=== PATIENT | male | born 1970 | race Hispanic/Latino ===

== ENCOUNTER 2017-09-23 15:58 | Emergency (ER) | payer SELFPAY ==
--- NOTE | 2017-09-23 16:36 | ER ---
Nurse's Notes [facility] Name: Walt Velazquez Age: 46 yrs Sex: Male : 1970 Arrival Date: 09/23/2017 Time: 15:57 Bed 6 Private MD: Diagnosis: Epigastric pain Presentation: 09/23 15:58 Presenting complaint: Patient states: at 1400 ate something then had chest pain after ch walking to the psychiatric. feels like something kicked him in the chest. Transition of care: patient was not received from another setting of care. Onset of symptoms was September 23, 2017 at 14:30. Care prior to arrival: Medication(s) given: ASA, 81 mg, x 4. 15:58 Method Of Arrival: EMS: [facility] 15:58 Acuity: LATASHA 3 ch Triage Assessment: 16:01 General: Appears in no apparent distress. comfortable, Behavior is calm, cooperative, ch appropriate for age. Pain: Complains of pain in chest Pain currently is 7 out of 10 on a pain scale. EENT: No signs and/or symptoms were reported regarding the EENT system. Cardiovascular: Reports chest pain, Heart tones S1 S2 present Capillary refill < 3 seconds in bilateral fingers toes Clubbing of nail beds is absent JVD is absent Pulses are all present. Edema is absent. Respiratory: Airway is patent Respiratory effort is even, unlabored, Breath sounds are clear bilaterally. GI: No signs and/or symptoms were reported involving the gastrointestinal system. Derm: Skin is normal. Historical: - Allergies: 16:01 Trazodone; ch - Home Meds: 16:01 Dilantin Oral 100 mg three times a day [Active]; Risperdal Oral once daily [Active]; ch - PMHx: 16:01 Alcoholism; Bipolar disorder; pancreatic cancer; Parkinsons; Seizures; ch - Immunization history:: Adult Immunizations up to date. - Social history:: Smoking status: Patient uses tobacco products, Patient/guardian denies using alcohol, street drugs. Screenin:07 Abuse screen:. hj 16:11 Nutritional screening: No deficits noted. Tuberculosis screening: No symptoms or risk hj factors identified. Fall Risk None identified. Assessment: 16:12 Pain: Pain does not radiate. Pain began suddenly. 16:12 General: Appears in no apparent distress. uncomfortable, Behavior is calm, cooperative, hj appropriate for age. Neuro: Level of Consciousness is awake, alert, obeys commands, Oriented to person, place, time, situation, Appropriate for age. Cardiovascular: Capillary refill < 3 seconds Patient's skin is warm and dry. Respiratory: Airway is patent Respiratory effort is even, unlabored, Respiratory pattern is regular, symmetrical. GI: Abdomen is non-distended, Bowel sounds present X 4 quads. : No signs and/or symptoms were reported regarding the genitourinary system. EENT: No signs and/or symptoms were reported regarding the EENT system. Derm: No signs and/or symptoms reported regarding the dermatologic system. Musculoskeletal: No signs and/or symptoms reported regarding the musculoskeletal system. Vital Signs: 16:06 BP 134 / 91; Pulse 87; Resp 18; Temp 98.2(O); Pulse Ox 100% on R/A; Weight 72.57 kg; hj Height 5 ft. 3 in. (160.02 cm); Pain 6/10; 16:06 Body Mass Index 28.34 (72.57 kg, 160.02 cm) ED Course: 15:57 Patient arrived in ED. ch 15:59 Triage completed. ch 16:03 Deandre Sharma PA is PHCP. cp 16:03 Deandre Mckeon MD is Attending Physician. cp 16:05 Initial lab(s) drawn, by oh, sent to lab. Inserted saline lock: 22 gauge in right iw antecubital area, using aseptic technique. Blood collected. 16:06 Jose Burch RN is Primary Nurse. hj 16:07 Primary Nurse role handed off by Jose Burch RN ch 16:07 Fidelia Mccartney, RN is Primary Nurse. ch 16:10 EKG done, by apartment maintenance technician. reviewed by Deandre Mckeon MD. at1 16:11 Jose Burch, RN is Primary Nurse. hj 16:11 Arm band placed on right wrist. hj 16:11 Patient has correct armband on for positive identification. Placed in gown. Bed in low hj position. Call light in reach. Side rails up X 1. needle loom weaver on. Pulse ox on. NIBP on. 16:12 Patient maintains SpO2 saturation greater than 95% on room air. hj 16:35 No provider procedures requiring assistance completed. IV discontinued, intact, hj bleeding controlled, No redness/swelling at site. Pressure dressing applied. Administered Medications: 16:34 Not Given (pt left AMA): Banana Bag - (NS 0.9% 1000 ml, foLIC Acid 1 mg, Thiamine 100 hj mg, Multivitamin 1 amp) IV at 200 ml/hr once Outcome: 16:35 AMA AMA form signed hj 16:35 Condition: stable 16:36 Patient left the ED. 16:46 Patient left the ED. Signatures: Fidelia Mccartney, RN RN Marita Hernandez RN RN Altagracia condon, strategic marketing manager EKG Tat1 Jose Burch RN RN Deandre Sharma, PA PA cp
[2017-09-23 16:46] VITALS: BP 134/91; TEMP 98.2; O2SAT 100
[2017-09-23 16:46] LABS: Bicarbonate 28 mEq/L (21-31); Glucose Level 131 mg/dL (65-120); Lipase 150 U/L (22-51); Potassium 3.5 mEq/L (3.6-5.0); Sodium Level 136 mEq/L (135-145)
--- NOTE | 2017-09-23 16:47 | EDPHYS ---
Physician Documentation [facility] Name: Walt Velazquez Age: 46 yrs Sex: Male : 1970 Arrival Date: 09/23/2017 Time: 15:57 Bed 6 Private MD: ED Physician Deandre Mckeon HPI: 09/23 16:20 This 46 yrs old Male presents to ER via EMS with complaints of Chest Pain. cp 16:20 The patient or guardian reports chest pain that is located primarily in the epigastric cp area. 16:20 Onset: today, at 14:00, started shortly after eating and walking to religious. cp 16:20 The pain does not radiate. Associated signs and symptoms: Pertinent negatives: cough, cp diaphoresis, dizziness, headache, lower extremity pain, lower extremity swelling, near syncope, palpitations, syncope, vomiting. The chest pain is described as sharp. Duration: The patient or guardian reports a single episode, that is now resolved. Modifying factors: the symptoms are aggravated by palpation of area. Historical: - Allergies: 16:01 Trazodone; ch - Home Meds: 16:01 Dilantin Oral 100 mg three times a day [Active]; Risperdal Oral once daily [Active]; ch - PMHx: 16:01 Alcoholism; Bipolar disorder; pancreatic cancer; Parkinsons; Seizures; ch - Immunization history:: Adult Immunizations up to date. - Social history:: Smoking status: Patient uses tobacco products, Patient/guardian denies using alcohol, street drugs. ROS: 16:28 Constitutional: Negative for body aches, chills, fever, poor PO intake. cp 16:28 Eyes: Negative for injury, pain, redness, and discharge, ENT: Negative for injury, cp pain, and discharge. 16:28 Cardiovascular: Positive for chest pain, Negative for edema, palpitations. 16:28 Respiratory: Negative for cough, shortness of breath, wheezing. 16:28 Abdomen/GI: Positive for abdominal pain, of the epigastric area, Negative for vomiting, diarrhea, constipation, anorexia, dysphagia, black/tarry stool, rectal bleeding. 16:28 Back: Negative for pain at rest, pain with movement, radiated pain. 16:28 Skin: Negative for cellulitis, rash. 16:28 Neuro: Negative for dizziness, headache, weakness. 16:28 All other systems are negative. Exam: 16:33 Constitutional: The patient appears in no acute distress, alert, awake, non-toxic, well cp developed, well nourished, unkempt. 16:33 Head/Face: Normocephalic, atraumatic. Eyes: Pupils equal round and reactive to light, cp extra-ocular motions intact. Lids and lashes normal. Conjunctiva and sclera are non-icteric and not injected. Cornea within normal limits. Periorbital areas with no swelling, redness, or edema. ENT: Nares patent. No nasal discharge, no septal abnormalities noted. Tympanic membranes are normal and external auditory canals are clear. Oropharynx with no redness, swelling, or masses, exudates, or evidence of obstruction, uvula midline. Mucous membranes moist. Neck: Trachea midline, no thyromegaly or masses palpated, and no cervical lymphadenopathy. Supple, full range of motion without nuchal rigidity, or vertebral point tenderness. No Meningismus. 16:33 Chest/axilla: Inspection: normal, Palpation: crepitus, is not appreciated, tenderness, that is mild, of the xyphoid area. 16:33 Cardiovascular: Rate: normal, Rhythm: regular, Edema: is not appreciated, JVD: is not appreciated. 16:33 Respiratory: the patient does not display signs of respiratory distress, Respirations: normal, no use of accessory muscles, no retractions, no splinting, no tachypnea, labored breathing, is not present, Breath sounds: are clear throughout, no decreased breath sounds, no stridor, no wheezing. 16:33 Abdomen/GI: Inspection: abdomen appears normal, Bowel sounds: active, all quadrants, Palpation: soft, in all quadrants, mild abdominal tenderness, in the epigastric area, rebound tenderness, is not appreciated, voluntary guarding, is not appreciated, involuntary guarding, is not appreciated. 16:33 Back: pain, is absent, ROM is normal. 16:33 Skin: cellulitis, is not appreciated, no rash present. 16:33 Neuro: Orientation: to person, place \T\ time. Mentation: lucid, able to follow commands, Motor: moves all fours, strength is normal, Sensation: no obvious gross deficits, Gait: is steady. Vital Signs: 16:06 BP 134 / 91; Pulse 87; Resp 18; Temp 98.2(O); Pulse Ox 100% on R/A; Weight 72.57 kg; hj Height 5 ft. 3 in. (160.02 cm); Pain 6/10; 16:06 Body Mass Index 28.34 (72.57 kg, 160.02 cm) MDM: 16:03 Patient medically screened. cp 16:35 Data reviewed: vital signs, nurses notes. cp 16:35 Refusal of service: The patient/guardian displays adequate decision making capability cp and despite a detailed discussion of alternatives, benefits, risks, and consequences refuses: all lab tests. 09/23 16:15 Order name: Amylase, Serum cp 09/23 16:15 Order name: Basic Metabolic Panel cp 09/23 16:15 Order name: CBC with Diff cp 09/23 16:15 Order name: Creatinine for Radiology cp 09/23 16:15 Order name: Hepatic Function cp 09/23 16:15 Order name: Lipase cp 09/23 16:15 Order name: IV Saline Lock; Complete Time: 16:17 cp 09/23 16:15 Order name: Labs collected and sent; Complete Time: 16:17 cp 09/23 16:15 Order name: EKG; Complete Time: 16:16 cp 09/23 16:15 Order name: Magnesium 09/23 16:15 Order name: Troponin I 09/23 16:15 Order name: EKG - Nurse/Tech; Complete Time: 16:17 cp Administered Medications: 16:34 Not Given (pt left AMA): Banana Bag - (NS 0.9% 1000 ml, foLIC Acid 1 mg, Thiamine 100 hj mg, Multivitamin 1 amp) IV at 200 ml/hr once Disposition: 09/24 16:14 Co-signature as Attending Physician, Deandre Mckeon MD I agree with the assessment and bridgette plan of care. Disposition: 09/23/17 16:36 Patient has left against medical advice. Impression: Epigastric pain. - Patients states they are going to Home. - Condition is Stable. Follow up: Private Physician; When: 1 - 2 days; Reason: Recheck today's complaints. - Problem is new. - Symptoms have improved. Signatures: Dispatcher [employer] Fidelia Lea RN RN ch Anderson, Corey, MD MD cha Williams, Irene, RN RN Jose Burch RN RN hj Page Deandre, PA PA cp Corrections: (The following items were deleted from the chart) 09/23 16:34 16:15 Urine Dipstick-Ancillary ordered. daphne muniz
[2017-09-23 16:50] LABS: Absolute Lymphocytes (CBC) 1.4 K/uL (0.7-4.9); Absolute Monocytes 0.4 K/uL (0.1-1.3); Absolute Neutrophil 1.2 K/uL (1.8-8.0); Basophils % 1.7 % (0-1.3); Eosinophils % 0.1 % (0-4.4); Hematocrit 36.7 % (39.6-49.0); Lymphocytes % 45.7 % (15.3-44.8); MCH 28.7 pg (27.0-35.0); MCV 89.1 fL (80-100); MPV 7.6 fL (7.6-11.3); Monocytes % 12.7 % (3.3-12.3); RBC Red Blood Cell Count 4.12 M/uL (4.33-5.43)
[2017-09-23 16:59] LABS: ALT/SGPT 46 IU/L (10-60); AST/SGOT 139 IU/L (10-42); Albumin 4.5 g/dL (3.2-5.5); Alkaline Phosphatase 134 IU/L (42-121); BUN Blood Urea Nitrogen 8 mg/dL (6-20); Bilirubin Direct 0.1 mg/dL (0-0.2); Bilirubin Total 0.8 mg/dL (0.3-1.2)
[2017-09-23 17:07] LABS: Amylase Level 200 U/L (28-100)
--- NOTE | 2017-09-24 10:10 | EKG ---
Test Date: 2017-09-23 Test Time: 15:59:35 Assistant Restaurant General Manager: RODRIGO MEASUREMENT RESULTS: Intervals: Rate: 84 SD: 190 QRSD: 80 QT: 346 QTc: 408 [place]: P: 34 SD: 190 QRS: 13 T: 17 INTERPRETIVE STATEMENTS: Normal sinus rhythm Normal ECG Compared to ECG 08/06/2017 09:53:51 No significant changes Electronically Signed On 09-24-17 10:07:55 CDT by Asim Thompson
== END 2017-09-23 16:46 | disposition left against medical advice (07) ==
LOC: ER 15:58
DX: R10.13 Epigastric pain (principal); G20 Parkinson's disease; G40.909 Epilepsy, unspecified, not intractable, without status epilepticus; Z85.07 Personal history of malignant neoplasm of pancreas; Z88.6 Allergy status to analgesic agent
CPT/HCPCS: 36415; 80048; 80076; 82150; 83690; 83735; 84484; 85025; 93005; 99285

== ENCOUNTER 2017-10-10 19:14 | Emergency (ER) | payer SELFPAY ==
[2017-10-10 20:01] LABS: Absolute Monocytes 0.3 K/uL (0.1-1.3)
[2017-10-10 20:05] LABS: Absolute Neutrophil 1.1 K/uL (1.8-8.0); MPV 7.2 fL (7.6-11.3)
[2017-10-10 20:08] LABS: Protime INR 0.99
[2017-10-10 20:12] LABS: Basophils % 4.4 % (0-1.3); Eosinophils % 0.7 % (0-4.4); Hematocrit 36.8 % (39.6-49.0); Lymphocytes % 38.1 % (15.3-44.8); MCH 29.2 pg (27.0-35.0); Monocytes % 12.4 % (3.3-12.3); RBC Red Blood Cell Count 4.18 M/uL (4.33-5.43)
[2017-10-10 20:13] LABS: Bicarbonate 27 mEq/L (21-31); Glucose Level 125 mg/dL (65-120); Potassium 3.7 mEq/L (3.6-5.0); Sodium Level 136 mEq/L (135-145)
[2017-10-10 20:18] LABS: ALT/SGPT 65 IU/L (10-60); AST/SGOT 169 IU/L (10-42); Albumin 4.3 g/dL (3.2-5.5); Alkaline Phosphatase 168 IU/L (42-121); BUN Blood Urea Nitrogen 7 mg/dL (6-20); Bilirubin Direct 0.2 mg/dL (0-0.2); Bilirubin Total 0.8 mg/dL (0.3-1.2); Magnesium 1.7 mg/dL (1.8-2.5); Protein, Total 8.5 g/dL (6.0-8.3)
[2017-10-10 20:22] LABS: Alcohol Serum/Plasma 427 mg/dl; Phenytoin (Dilantin) Level < 2.5 ug/ml (10.0-20.0); Salicylates Level < 4.0 mg/dl (<30)
[2017-10-10] MEDS ORDERED: LORazepam 2 MG/ML VIAL ONE (20:27)
--- NOTE | 2017-10-10 20:43 | RAD REPORT ---
EXAM DESCRIPTION: RAD - Knee Left 3 View - 10/10/2017 8:07 pm CLINICAL HISTORY: Left knee pain status post injury FINDINGS: No fracture or dislocation is seen.
[2017-10-10 20:50] LABS: Urine Blood TRACE (NEG); Urine Glucose NEGATIVE (NEG); Urine Protein 1+ (NEG); Urine pH 5.5 (5.0-7.0)
[2017-10-10 20:57] LABS: Anisocytosis 1+; Blood Morphology Comment NOTED (NOT SEEN); Hypochromasia 1+; Platelet Estimate DECR; Urine White Blood Cell Casts OK
[2017-10-10] MEDS ORDERED: PHENYTOIN ER 100 MG CAP PO ONE (20:59)
[2017-10-10] MEDS ORDERED: MAGNESIUM OXIDE 400 MG TAB ONE (21:00)
--- NOTE | 2017-10-10 21:01 | EDPHYS ---
Physician Documentation [facility] Name: Walt Velazquez Age: 46 yrs Sex: Male : 1970 Arrival Date: 10/10/2017 Time: 19:17 Bed 17 Private MD: ED Physician Finesse Grajeda HPI: 10/10 19:40 This 46 yrs old Male presents to ER via EMS with complaints of left knee pain. kav 19:40 The patient presents with a contusion, pain, that is acute, weakness, secondary to kav pain. The complaints affect the left knee. Context: The problem was sustained at home, resulted from the patient falling, patient reports that he "...had a seizure and fell on left knee on 10/09/17". Onset: The symptoms/episode began/occurred acutely. Modifying factors: The symptoms are alleviated by nothing. the symptoms are aggravated by movement. Associated signs and symptoms: Pertinent positives: weakness, of the left knee, Pertinent negatives calf tenderness, fever, nausea, numbness, rash, swelling, tingling, vomiting, warmth. Treatment prior to arrival includes: no previous treatment. Severity of symptoms: At their worst the symptoms were mild, just prior to arrival. The patient has not recently seen a physician. patient reports that he has been out of dilantin medication for > 30 days. ETOH noted on breath during assessment. 21:06 patient seen at clinic in [facility] for psyche issues and for psyche medications for kav bipolar disorder. Historical: - Allergies: 19:23 Trazodone; bs1 - Home Meds: 19:23 Dilantin Oral 100 mg three times a day [Active]; Risperdal Oral once daily [Active]; bs1 Ritalin Oral [Active]; - PMHx: 19:23 Alcoholism; Bipolar disorder; pancreatic cancer; Parkinsons; Seizures; bs1 - PSHx: 19:23 Unable to obtain; bs1 - Immunization history:: Adult Immunizations unknown. - Social history:: Smoking status: Patient/guardian denies using tobacco, Patient uses alcohol, on a daily basis. - Family history:: not pertinent. - Hospitalizations: : No recent hospitalization is reported. ROS: 20:55 Constitutional: Negative for fever, chills, and weight loss, Eyes: Negative for injury, kav pain, redness, and discharge, ENT: Negative for injury, pain, and discharge, Neck: Negative for injury, pain, and swelling, Cardiovascular: Negative for chest pain, palpitations, and edema, Respiratory: Negative for shortness of breath, cough, wheezing, and pleuritic chest pain, Abdomen/GI: Negative for abdominal pain, nausea, vomiting, diarrhea, and constipation, Back: Negative for injury and pain, : Negative for injury, bleeding, discharge, and swelling, Skin: Negative for injury, rash, and discoloration, Neuro: Negative for headache, weakness, numbness, tingling, and seizure, Psych: Negative for depression, anxiety, suicide ideation, homicidal ideation, and hallucinations, Allergy/Immunology: Negative for hives, rash, and allergies, Endocrine: Negative for neck swelling, polydipsia, polyuria, polyphagia, and marked weight changes, Hematologic/Lymphatic: Negative for swollen nodes, abnormal bleeding, and unusual bruising. 20:55 MS/extremity: Positive for pain, of the right knee. Exam: 20:55 Constitutional: This is a well developed, well nourished patient who is awake, alert, kav and in no acute distress. Head/Face: Normocephalic, atraumatic. Eyes: Pupils equal round and reactive to light, extra-ocular motions intact. Lids and lashes normal. Conjunctiva and sclera are non-icteric and not injected. Cornea within normal limits. Periorbital areas with no swelling, redness, or edema. ENT: Nares patent. No nasal discharge, no septal abnormalities noted. Tympanic membranes are normal and external auditory canals are clear. Oropharynx with no redness, swelling, or masses, exudates, or evidence of obstruction, uvula midline. Mucous membranes moist. Neck: Trachea midline, no thyromegaly or masses palpated, and no cervical lymphadenopathy. Supple, full range of motion without nuchal rigidity, or vertebral point tenderness. No Meningismus. Chest/axilla: Normal chest wall appearance and motion. Nontender with no deformity. No lesions are appreciated. Cardiovascular: Regular rate and rhythm with a normal S1 and S2. No gallops, murmurs, or rubs. Normal PMI, no JVD. No pulse deficits. Respiratory: Lungs have equal breath sounds bilaterally, clear to auscultation and percussion. No rales, rhonchi or wheezes noted. No increased work of breathing, no retractions or nasal flaring. Abdomen/GI: Soft, non-tender, with normal bowel sounds. No distension or tympany. No guarding or rebound. No evidence of tenderness throughout. Back: No spinal tenderness. No costovertebral tenderness. Full range of motion. Skin: Warm, dry with normal turgor. Normal color with no rashes, no lesions, and no evidence of cellulitis. 20:55 Musculoskeletal/extremity: Extremities: noted in the right knee: ROM: limited active range of motion, in the left knee, Circulation is intact in all extremities. Pulses: are normal with no appreciated deficits, Sensation intact. Joints: All joints appear normal with full range of motion. Weight bearing: can bear weight with assistance only. Vital Signs: 19:24 BP 129 / 69; Pulse 83; Resp 18; Temp 98.0(O); Pulse Ox 100% on R/A; Weight 65.77 kg; bs1 Height 5 ft. 3 in. (160.02 cm); Pain 8/10; 20:30 BP 114 / 78; Pulse 75; Resp 18; Pulse Ox 100% on R/A; bs1 21:20 BP 112 / 79; Pulse 82; Resp 17; Temp 98.2(O); Pulse Ox 94% on R/A; Pain 0/10; bs1 19:24 Body Mass Index 25.69 (65.77 kg, 160.02 cm) bs1 MDM: 19:24 Patient medically screened. cp 20:55 Data reviewed: vital signs, nurses notes, EMS record, lab test result(s), EKG, kav radiologic studies. 10/10 19:39 Order name: Basic Metabolic Panel; Complete Time: 20:40 kav 10/10 19:39 Order name: BNP; Complete Time: 20:40 kav 10/10 19:39 Order name: CBC with Diff; Complete Time: 21:04 kav 10/10 19:39 Order name: LFT's; Complete Time: 20:40 kav 10/10 19:39 Order name: Magnesium; Complete Time: 20:40 kav 10/10 19:39 Order name: PT-INR; Complete Time: 20:40 kav 10/10 19:39 Order name: Ptt, Activated; Complete Time: 20:40 kav 10/10 19:39 Order name: Acetaminophen; Complete Time: 20:40 kav 10/10 19:39 Order name: ETOH Level; Complete Time: 20:40 kav 10/10 19:39 Order name: Salicylate; Complete Time: 20:40 kav 10/10 19:39 Order name: Urine Drug Screen kav 10/10 21:07 Interpretation: Within normal limits. kav 10/10 19:39 Order name: Dilantin; Complete Time: 20:40 kav 10/10 20:16 Order name: CBC Smear Scan; Complete Time: 21:04 EDMS 10/10 20:45 Order name: Urine Dipstick--Ancillary (enter results); Complete Time: 20:54 em1 10/10 19:39 Order name: Cardiac monitoring; Complete Time: 20:35 kav 10/10 19:39 Order name: EKG - Nurse/Tech; Complete Time: 20:48 kav 10/10 19:39 Order name: IV Saline Lock; Complete Time: 20:31 kav 10/10 19:39 Order name: Labs collected and sent; Complete Time: 20:31 kav 10/10 19:39 Order name: O2 Per Protocol; Complete Time: 20:31 kav 10/10 19:39 Order name: O2 Sat Monitoring; Complete Time: 20:31 kav 10/10 19:39 Order name: Urine Dipstick-Ancillary (obtain specimen); Complete Time: 20:31 kav 10/10 19:39 Order name: EKG; Complete Time: 19:39 kav 10/10 19:44 Order name: Knee Left 3 View XRAY; Complete Time: 20:54 kav Administered Medications: 19:59 Drug: NS 0.9% 1000 ml Route: IV; Rate: 1 bolus; Site: right antecubital; bs1 21:25 Follow up: IV Status: Completed infusion bs1 20:30 Drug: Ativan 1 mg Route: IVP; Site: right antecubital; bs1 20:43 Follow up: Response: No adverse reaction bs1 21:03 Drug: Magnesium 400 mg Route: PO; bs1 21:24 Follow up: Response: No adverse reaction bs1 21:03 Drug: Dilantin 300 mg Route: PO; bs1 21:24 Follow up: Response: No adverse reaction bs1 Disposition: 10/11 01:30 Co-signature as Attending Physician, Finesse Grajeda MD. ma2 Disposition: 10/10/17 21:00 Discharged to Home. Impression: Alcohol abuse with intoxication, Hypomagnesemia, Dehydration, Patient's other noncompliance with medication regimen. - Condition is Stable. - Discharge Instructions: Alcohol Use Disorder, Hypomagnesemia, Alcohol Intoxication, [id number], Alcohol Abuse and Nutrition, Dehydration, Adult, [id number], Knee Pain, [id number]. - Prescriptions for Dilantin Kapseal 100 mg Oral Capsule - take 1 capsule by ORAL route every 8 hours; 30 capsule. - Medication Reconciliation Form, Thank You Letter, Antibiotic Education, Prescription Opioid Use form. - Follow up: Private Physician; When: 1 - 2 days; Reason: Recheck today's complaints, Continuance of care, Re-evaluation by your physician. - Problem is new. - Symptoms have improved. - Notes: Dilantin level is subtherapeutic. Patient reports that he has been out of his Dilantin for \\T\\gt; 30 days and gets his refills here in this ER. Patient advised to f/u with the clinic in [place], [place]. Patient advised to take his medications as directed. Patient advised to abstain from alcohol use. Signatures: Dispatcher [employer] Jana Jansen, FOREIGN EXCHANGE STUDENT COORDINATOR FOREIGN EXCHANGE STUDENT COORDINATOR Deandre Michael PA PA cp Salazar, Brittany, RN RN bs1 Finesse Grajeda MD MD ma2
--- NOTE | 2017-10-10 21:01 | ER ---
Nurse's Notes [facility] Name: Walt Velazquez Age: 46 yrs Sex: Male : 1970 Arrival Date: 10/10/2017 Time: 19:17 Bed 17 Private MD: Diagnosis: Alcohol abuse with intoxication;Hypomagnesemia;Dehydration;Patient's other noncompliance with medication regimen Presentation: 10/10 19:18 Presenting complaint: EMS states: "Patient states he fell a day and a half ago after a bs1 seizure and hurt his left knee, Blood pressure 129/88, 100% room air, 92 pulse.". Transition of care: patient was not received from another setting of care. Onset of symptoms was October 09, 2017. Initial Sepsis Screen: Does the patient meet any 2 criteria? No. Patient's initial sepsis screen is negative. Does the patient have a suspected source of infection? No. Patient's initial sepsis screen is negative. Care prior to arrival: None. 19:18 Method Of Arrival: EMS: [facility] bs1 19:18 Acuity: LATASHA 3 bs1 Historical: - Allergies: 19:23 Trazodone; bs1 - Home Meds: 19:23 Dilantin Oral 100 mg three times a day [Active]; Risperdal Oral once daily [Active]; bs1 Ritalin Oral [Active]; - PMHx: 19:23 Alcoholism; Bipolar disorder; pancreatic cancer; Parkinsons; Seizures; bs1 - PSHx: 19:23 Unable to obtain; bs1 - Immunization history:: Adult Immunizations unknown. - Social history:: Smoking status: Patient/guardian denies using tobacco, Patient uses alcohol, on a daily basis. - Family history:: not pertinent. - Hospitalizations: : No recent hospitalization is reported. Screenin:25 Abuse screen: Denies threats or abuse. Denies injuries from another. Nutritional bs1 screening: No deficits noted. Tuberculosis screening: No symptoms or risk factors identified. Fall Risk None identified. Assessment: 19:36 General: Appears in no apparent distress. uncomfortable, Behavior is cooperative, bs1 anxious, Smells of alcohol. Pain: Complains of pain in left knee Pain currently is 8 out of 10 on a pain scale. Quality of pain is described as throbbing. Neuro: Level of Consciousness is awake, alert, obeys commands, Oriented to person, place, situation. Cardiovascular: Denies chest pain, palpitations, shortness of breath, Heart tones S1 S2 present Capillary refill < 3 seconds Patient's skin is warm and dry. Respiratory: Airway is patent Trachea midline Respiratory effort is even, unlabored, Respiratory pattern is regular, symmetrical, Breath sounds are clear bilaterally. GI: No deficits noted. No signs and/or symptoms were reported involving the gastrointestinal system. : No deficits noted. No signs and/or symptoms were reported regarding the genitourinary system. EENT: No deficits noted. No signs and/or symptoms were reported regarding the EENT system. Derm: Skin is intact, Bruising that is dark purple, on left side of knee. Musculoskeletal: Circulation, motion, and sensation intact. Capillary refill < 3 seconds, Range of motion: limited in left knee. 20:36 Reassessment: Patient appears in no apparent distress at this time. Patient and/or bs1 family updated on plan of care and expected duration. Pain level reassessed. Patient is alert, oriented x 3, equal unlabored respirations, skin warm/dry/pink. 21:26 Reassessment: Patient appears in no apparent distress at this time. Patient and/or bs1 family updated on plan of care and expected duration. Pain level reassessed. Patient is alert, oriented x 3, equal unlabored respirations, skin warm/dry/pink. Patient states symptoms have improved. Vital Signs: 19:24 BP 129 / 69; Pulse 83; Resp 18; Temp 98.0(O); Pulse Ox 100% on R/A; Weight 65.77 kg; bs1 Height 5 ft. 3 in. (160.02 cm); Pain 8/10; 20:30 BP 114 / 78; Pulse 75; Resp 18; Pulse Ox 100% on R/A; bs1 21:20 BP 112 / 79; Pulse 82; Resp 17; Temp 98.2(O); Pulse Ox 94% on R/A; Pain 0/10; bs1 19:24 Body Mass Index 25.69 (65.77 kg, 160.02 cm) bs1 ED Course: 19:17 Patient arrived in ED. em1 19:18 Gloria Theodore, ROBERTO is Primary Nurse. bs1 19:21 Triage completed. bs1 19:24 Deandre Sharma PA is PHCP. cp 19:24 Suliaman Hawkins MD is Attending Physician. cp 19:25 Patient has correct armband on for positive identification. Bed in low position. Call bs1 light in reach. Side rails up X 1. Pulse ox on. NIBP on. 19:26 Jana Lopez FNP is PHCP. kav 19:26 Finesse Grajeda MD is Attending Physician. kav 19:45 Inserted saline lock: 22 gauge in right antecubital area, using aseptic technique. bs1 20:01 Arm band placed on placed. bs1 20:01 No provider procedures requiring assistance completed. bs1 20:06 X-ray completed. Portable x-ray completed in exam room. Patient tolerated procedure kp1 well. 20:07 Knee Left 3 View XRAY In Process Unspecified. EDMS 20:48 EKG done, by ED staff, reviewed by Jana JOLLEY. cc 21:24 IV discontinued, bleeding controlled, No redness/swelling at site. Pressure dressing bs1 applied. Administered Medications: 19:59 Drug: NS 0.9% 1000 ml Route: IV; Rate: 1 bolus; Site: right antecubital; bs1 21:25 Follow up: IV Status: Completed infusion bs1 20:30 Drug: Ativan 1 mg Route: IVP; Site: right antecubital; bs1 20:43 Follow up: Response: No adverse reaction bs1 21:03 Drug: Magnesium 400 mg Route: PO; bs1 21:24 Follow up: Response: No adverse reaction bs1 21:03 Drug: Dilantin 300 mg Route: PO; bs1 21:24 Follow up: Response: No adverse reaction bs1 Outcome: 21:00 Discharge ordered by . kajaneth 21:21 Discharged to [facility] bs1 21:21 Condition: stable 21:21 Discharge instructions given to patient, Instructed on discharge instructions, follow up and referral plans. medication usage, Demonstrated understanding of instructions, follow-up care, medications, Prescriptions given X 1. 21:26 Patient left the ED. bs1 Signatures: Dispatcher [employer] EDMS Jana Lopez FNP STEREO MAP PLOTTER OPERATOR Manfred Carballo em1 Gemma Cardoso cc Deandre Sharma PA PA Sonia Purcell kp1 Theodore, Gloria, RN RN bs1 Corrections: (The following items were deleted from the chart) 21:25 21:20 BP 112 / 79; Pulse 82bpm; Resp 17bpm; Pulse Ox 94% RA; Pain 0/10; bs1 bs1
[2017-10-10 21:02] LABS: Barbiturates NEGATIVE; Benzodiazepines NEGATIVE; Cocaine NEGATIVE; METHAMPHETAM NEGATIVE; Opiates NEGATIVE
[2017-10-10 21:08] LABS: Phencyclidine ND; THC Cannibis ND
[2017-10-10 21:44] VITALS: BP 112/79; TEMP 98.2; O2SAT 94
--- NOTE | 2017-10-11 06:13 | EKG ---
Test Date: 2017-10-10 Test Time: 20:41:08 Tow Boat Captain: MEKHI MEASUREMENT RESULTS: Intervals: Rate: 77 AK: 206 QRSD: 82 QT: 380 QTc: 430 [place]: P: 60 AK: 206 QRS: 41 T: 25 INTERPRETIVE STATEMENTS: Normal sinus rhythm Normal ECG Compared to ECG 09/23/2017 15:59:35 No significant changes Electronically Signed On 10-11-17 06:12:02 CDT by Barron Kumar
== END 2017-10-10 21:26 | disposition home or self-care (01) ==
LOC: ER 19:14
DX: F10.129 Alcohol abuse with intoxication, unspecified (principal); E83.42 Hypomagnesemia; Z91.14 Patient's other noncompliance with medication regimen
CPT/HCPCS: 36415; 80048; 80076; 80185; 80307; 80320; 80329; 81003; 83735; 83880; 85025; 85610; 85730; 93005; 96361; 96374; 99284

== ENCOUNTER 2017-10-16 11:22 | Emergency (ER) | payer SELFPAY ==
[2017-10-16 12:46] LABS: Absolute Lymphocytes (CBC) 0.8 K/uL (0.7-4.9); Absolute Monocytes 0.4 K/uL (0.1-1.3); Absolute Neutrophil 1.9 K/uL (1.8-8.0); Basophils % 2.2 % (0-1.3); Hematocrit 35.9 % (39.6-49.0); Lymphocytes % 24.4 % (15.3-44.8); MCH 29.5 pg (27.0-35.0); MCV 88.8 fL (80-100); MPV 7.3 fL (7.6-11.3); Monocytes % 12.5 % (3.3-12.3); RBC Red Blood Cell Count 4.04 M/uL (4.33-5.43)
--- NOTE | 2017-10-16 12:46 | RAD REPORT ---
EXAM DESCRIPTION: Kinsey Single View10/16/2017 12:38 pm CLINICAL HISTORY: Chest pain COMPARISON: 2017 FINDINGS: The lungs appear clear of acute infiltrate. The heart is normal size IMPRESSION: No acute abnormalities displayed
[2017-10-16] MEDS ORDERED: NA CHLORIDE 0.9% 1,000 ML ONE (12:49)
[2017-10-16] MEDS ORDERED: ONDANSETRON 4 MG/2 ML VIAL ONE (12:49)
[2017-10-16] MEDS ORDERED: PANTOPRAZOLE 40 MG INJ ONE (12:49)
[2017-10-16 12:52] LABS: Bicarbonate 23 mEq/L (21-31); Glucose Level 151 mg/dL (65-120); Lipase 158 U/L (22-51); Potassium 3.5 mEq/L (3.6-5.0); Sodium Level 134 mEq/L (135-145)
[2017-10-16 12:58] LABS: ALT/SGPT 69 IU/L (10-60); AST/SGOT 227 IU/L (10-42); Albumin 4.3 g/dL (3.2-5.5); Alkaline Phosphatase 160 IU/L (42-121); BUN Blood Urea Nitrogen 8 mg/dL (6-20); Bilirubin Direct 0.2 mg/dL (0-0.2); Bilirubin Total 0.5 mg/dL (0.3-1.2); Creatine Phosphokinase 160 IU/L (22-269)
[2017-10-16 13:01] LABS: CKMB Creatine Kinase MB 1.6 ng/ml (0.3-4.0)
--- NOTE | 2017-10-16 14:23 | ER ---
Nurse's Notes [facility] Name: Walt Velazquez Age: 46 yrs Sex: Male : 1970 Arrival Date: 10/16/2017 Time: 11:27 Bed 12 Private MD: Diagnosis: Other chest pain Presentation: 10/16 11:29 Presenting complaint: EMS states: Chest pain that began this morning, substernal does sg not radiate, is an 8/10 on a pain scale, reports hx of parkinson and needs a triple bypass but they are not cutting on me. Transition of care: patient was not received from another setting of care. Onset of symptoms was October 16, 2017. Initial Sepsis Screen: Does the patient meet any 2 criteria? No. Patient's initial sepsis screen is negative. Does the patient have a suspected source of infection? No. Patient's initial sepsis screen is negative. Care prior to arrival: None. 11:29 Method Of Arrival: EMS: [facility] sg 11:29 Acuity: LATASHA 3 sg Historical: - Allergies: 11:33 Trazodone; sg - Home Meds: 11:33 Dilantin Oral 100 mg three times a day [Active]; Risperdal Oral once daily [Active]; sg Ritalin Oral [Active]; - PMHx: 11:33 Alcoholism; Bipolar disorder; pancreatic cancer; Parkinsons; Seizures; sg - PSHx: 11:33 Unable to obtain; sg Screenin:43 Abuse screen: Denies threats or abuse. Denies injuries from another. Nutritional sg screening: No deficits noted. Tuberculosis screening: No symptoms or risk factors identified. Never had TB. Fall Risk None identified. Assessment: 11:43 General: Appears in no apparent distress. comfortable, well groomed, well developed, sg well nourished, Behavior is calm, cooperative, appropriate for age. General: Smells of alcohol. Pain: Complains of pain in epigastric area Pain does not radiate. Pain currently is 10 out of 10 on a pain scale. Quality of pain is described as aching, pt reports I think its my pancreatic cancer acting up. Neuro: Level of Consciousness is awake, alert, obeys commands, Oriented to person, place, time, Transfer Man are equal bilaterally Moves all extremities. Speech is slurred, Facial symmetry appears normal. Cardiovascular: Heart tones S1 S2 present Capillary refill is brisk in bilateral fingers Patient's skin is warm and dry. Chest pain is denied. Respiratory: Airway is patent Respiratory effort is even, unlabored, Respiratory pattern is regular, symmetrical. GI: Abdomen is flat, non-distended, Bowel sounds present X 4 quads. Reports upper abdominal pain, epigastric pain. : No signs and/or symptoms were reported regarding the genitourinary system. EENT: No signs and/or symptoms were reported regarding the EENT system. Derm: Skin is intact, is healthy with good turgor, Skin is dry, Skin is normal, Skin temperature is warm. Musculoskeletal: No signs and/or symptoms reported regarding the musculoskeletal system. Vital Signs: 11:42 BP 116 / 78; Pulse 86 MON; Resp 17 S; Temp 97.7; Pulse Ox 95% on R/A; Pain 10/10; sg ED Course: 11:27 Patient arrived in ED. sg 11:28 Deandre Sharma PA is PHCP. cp 11:28 Rudy Chavez MD is Attending Physician. cp 11:29 Haroon Elizondo, ROBERTO is Primary Nurse. sg 11:31 Triage completed. sg 11:31 Arm band placed on. sg 11:47 No provider procedures requiring assistance completed. Patient maintains SpO2 sg saturation greater than 95% on room air. 12:01 EKG done, by technical project lead. reviewed by Rudy Chavez MD. tc 12:18 Initial lab(s) drawn, by nd, sent to lab. Inserted saline lock: 20 gauge in right iw antecubital area, using aseptic technique. Blood collected. 12:35 X-ray completed. Portable x-ray completed in exam room. Patient tolerated procedure ml well. 12:37 XRAY Chest (1 view) In Process Unspecified. EDMS 13:46 US Abdomen Limited In Process Unspecified. EDMS Administered Medications: 12:00 Drug: NS 0.9% 1000 ml Route: IV; Rate: 1 bolus; Site: left antecubital; sg 12:40 Drug: ProTONIX 40 mg Route: IVP; Site: left antecubital; sg 12:40 Drug: Zofran 4 mg Route: IVP; Site: left antecubital; sg Outcome: 14:24 Patient left the ED. jr8 Signatures: Dispatcher [employer] EDMS Elizondo, ROBERTO Patiño RN, Irene, RN RN iw Lopez, Rigo Moser PA PA jr8 Maria L Greer, journeyman plumber [facility] Deandre Sharma PA PA cp
--- NOTE | 2017-10-16 14:23 | EDPHYS ---
Physician Documentation [facility] Name: Walt Velazquez Age: 46 yrs Sex: Male : 1970 Arrival Date: 10/16/2017 Time: 11:27 Bed 12 Private MD: ED Physician Rudy Chavez HPI: 10/16 11:42 This 46 yrs old Male presents to ER via EMS with complaints of Chest Pain > 30 cp y/o. 11:42 The patient or guardian reports chest pain that is located primarily in the substernal cp area, epigastric area. Onset: this morning. Historical: - Allergies: 11:33 Trazodone; sg - Home Meds: 11:33 Dilantin Oral 100 mg three times a day [Active]; Risperdal Oral once daily [Active]; sg Ritalin Oral [Active]; - PMHx: 11:33 Alcoholism; Bipolar disorder; pancreatic cancer; Parkinsons; Seizures; sg - PSHx: 11:33 Unable to obtain; sg ROS: 11:50 Constitutional: Negative for body aches, chills, fever, poor PO intake. cp 11:50 Eyes: Negative for injury, pain, redness, and discharge. cp 11:50 Cardiovascular: Positive for chest pain, Negative for edema, palpitations. 11:50 Respiratory: Negative for cough, shortness of breath, wheezing. 11:50 Abdomen/GI: Positive for abdominal pain, of the epigastric area, Negative for vomiting, diarrhea, constipation, black/tarry stool, rectal bleeding. 11:50 Skin: Negative for cellulitis, rash. 11:50 Neuro: Negative for altered mental status, headache, loss of consciousness, syncope, near syncope, weakness. 11:50 Psych: Positive for alcohol dependence. 11:50 All other systems are negative. Exam: 11:55 Constitutional: The patient appears in no acute distress, alert, awake, cp non-diaphoretic, non-toxic, well developed, well nourished. 11:55 Head/Face: Normocephalic, atraumatic. cp 11:55 Eyes: Periorbital structures: appear normal, Pupils: equal, round, and reactive to light and accomodation, Conjunctiva: normal, no exudate, no injection, Sclera: no appreciated abnormality, Lids and lashes: appear normal, bilaterally. 11:55 ENT: External ear(s): are unremarkable, Ear canal(s): are normal, clear, TM's: dullness, bilaterally, Nose: is normal, Mouth: is normal, Posterior pharynx: is normal, airway is patent, no erythema, no exudate. 11:55 Neck: ROM/movement: is normal, is supple, without pain, no range of motions limitations, no meningismus, no nuchal rigidity. 11:55 Chest/axilla: Inspection: normal, Palpation: is normal, no crepitus, no tenderness. 11:55 Cardiovascular: Rate: normal, Rhythm: regular, Pulses: Pulses are 2+ in right radial artery and left radial artery. Edema: is not appreciated, JVD: is not appreciated. 11:55 Respiratory: the patient does not display signs of respiratory distress, Respirations: normal, no use of accessory muscles, no retractions, no splinting, no tachypnea, labored breathing, is not present, Breath sounds: are clear throughout, no decreased breath sounds, no stridor, no wheezing. 11:55 Abdomen/GI: Inspection: abdomen appears normal, Bowel sounds: active, all quadrants, Palpation: soft, in all quadrants, mild abdominal tenderness, in the epigastric area, rebound tenderness, is not appreciated, involuntary guarding, is not appreciated. 11:55 Skin: cellulitis, is not appreciated, no rash present. 11:55 Neuro: Orientation: to person, place \T\ time. Mentation: lucid, able to follow commands, Motor: moves all fours, strength is normal, Sensation: no obvious gross deficits. Vital Signs: 11:42 BP 116 / 78; Pulse 86 MON; Resp 17 S; Temp 97.7; Pulse Ox 95% on R/A; Pain 10/10; sg MDM: 11:29 Patient medically screened. cp 14:20 Data reviewed: vital signs, nurses notes, lab test result(s), EKG, radiologic studies, cp plain films. 14:21 Refusal of service: The patient/guardian displays adequate decision making capability cp and despite a detailed discussion of alternatives, benefits, risks, and consequences refuses: continued monitoring and further testing. Patient stable and able to make decisions. 10/16 11:35 Order name: Basic Metabolic Panel; Complete Time: 13:12 cp 10/16 13:12 Interpretation: Normal except: NA 134; K 3.5; GLUC 151. cp 10/16 11:35 Order name: CBC with Diff; Complete Time: 10:45 cp 10/16 11:35 Order name: Ckmb; Complete Time: 13:12 cp 10/16 11:35 Order name: CPK; Complete Time: 13:12 cp 10/16 11:35 Order name: LFT's; Complete Time: 13:12 cp 10/16 13:12 Interpretation: Normal except: SGOT 227; SGPT 69; ALK 160; GLOB 3.7. cp 10/16 11:35 Order name: Magnesium; Complete Time: 13:12 cp 10/16 11:35 Order name: Troponin (emerg Dept Use Only); Complete Time: 13:12 cp 10/16 11:35 Order name: XRAY Chest (1 view); Complete Time: 13:12 cp 10/16 11:35 Order name: Lipase; Complete Time: 13:12 cp 10/16 13:13 Order name: CBC Smear Scan; Complete Time: 10:45 EDMS 10/16 13:16 Order name: US Abdomen Limited; Complete Time: 10:45 cp 10/16 11:35 Order name: EKG; Complete Time: 11:36 cp 10/16 11:35 Order name: Cardiac monitoring; Complete Time: 13:00 cp 10/16 11:35 Order name: EKG - Nurse/Tech; Complete Time: 13:00 cp 10/16 11:35 Order name: IV Saline Lock; Complete Time: 13:01 cp 10/16 11:35 Order name: Labs collected and sent; Complete Time: 13:01 cp 10/16 11:35 Order name: O2 Per Protocol; Complete Time: 13:01 cp 10/16 11:35 Order name: O2 Sat Monitoring; Complete Time: 13:01 cp 10/16 13:16 Order name: NPO cp Administered Medications: 12:00 Drug: NS 0.9% 1000 ml Route: IV; Rate: 1 bolus; Site: left antecubital; sg 12:40 Drug: ProTONIX 40 mg Route: IVP; Site: left antecubital; sg 12:40 Drug: Zofran 4 mg Route: IVP; Site: left antecubital; sg Disposition: 17:20 Co-signature as Attending Physician, Rudy Chavez MD I agree with the assessment and kdr plan of care. Disposition: 10/16/17 14:22 Patient has left against medical advice. Impression: Other chest pain. - Patients states they are going to Home. - Condition is Stable. - Discharge Instructions: Nonspecific Chest Pain. Follow up: Private Physician; When: 1 - 2 days; Reason: Recheck today's complaints. - Problem is new. - Symptoms have improved. Signatures: Dispatcher [employer] EDHaroon Verma RN RN Rudy Clayton MD MD [facility] Rigo Cherry PA PA jr8 Deandre Sharma PA PA cp Corrections: (The following items were deleted from the chart) 10/17 10:47 10/16 14:20 Refusal of service: The patient/guardian displays adequate decision making cp capability and despite a detailed discussion of alternatives, benefits, risks, and consequences refuses: further testing, US of gallbladder, cp
[2017-10-16 14:29] VITALS: BP 116/78; TEMP 97.7; O2SAT 95
--- NOTE | 2017-10-16 14:43 | RAD REPORT ---
EXAM DESCRIPTION: US - Abdomen Exam Limited - 10/16/2017 2:08 pm CLINICAL HISTORY: Abdominal pain, chest pain, epigastric pain COMPARISON: CT study June 2016 FINDINGS: No gallstones, sludge or other abnormalities within the gallbladder lumen. There is no wal l thickening or pericholecystic fluid. No common duct stone or biliary tree dilatation identified. Partially imaged liver shows a diffuse fatty infiltration pattern matching the prior CT study. IMPRESSION: Normal gallbladder and biliary tree ultrasound. Diffuse fatty infiltration of the liver.
[2017-10-16 15:47] LABS: Blood Morphology Comment NOT SEEN (NOT SEEN); Platelet Estimate DECR; Urine White Blood Cell Casts OK
--- NOTE | 2017-10-16 16:25 | EKG ---
Test Date: 2017-10-16 Test Time: 11:49:17 Emergency Care Attendant: DARYL MEASUREMENT RESULTS: Intervals: Rate: 85 VT: 200 QRSD: 82 QT: 338 QTc: 402 [place]: P: 52 VT: 200 QRS: 37 T: -36 INTERPRETIVE STATEMENTS: Normal sinus rhythm ST & T wave abnormality, consider inferior ischemia Abnormal ECG Compared to ECG 10/10/2017 20:41:08 ST (T wave) deviation now present Possible ischemia now present Electronically Signed On 10-16-17 16:23:31 CDT by Asim Thompson
== END 2017-10-16 14:24 | disposition left against medical advice (07) ==
LOC: ER 11:22
DX: R07.9 Chest pain, unspecified (principal); F31.9 Bipolar disorder, unspecified; R56.9 Unspecified convulsions; G20 Parkinson's disease
CPT/HCPCS: 36415; 71045; 76705; 80048; 80076; 82550; 82553; 83690; 83735; 84484; 85025; 93005; 96374; 96375; 99284; C9113; J2405; J7030

== ENCOUNTER 2017-10-19 12:47 | Emergency (ER) | payer SELFPAY ==
--- NOTE | 2017-10-19 13:10 | ER ---
Nurse's Notes [facility] Name: Walt Velazquez Age: 46 yrs Sex: Male : 1970 Arrival Date: 10/19/2017 Time: 12:49 Bed 18 Private MD: Diagnosis: Presentation: 10/19 12:50 Presenting complaint: EMS states: " Called for breathing difficulty, when arrived pt ph denied SOB, c/o R sided abdominal pain, VSS, hx of Parkinson's, seizures, ETOH abuse, reports drinking 4 beers today. Transition of care: patient was not received from another setting of care. Onset of symptoms was October 19, 2017. Initial Sepsis Screen: Does the patient meet any 2 criteria? No. Patient's initial sepsis screen is negative. Does the patient have a suspected source of infection? No. Patient's initial sepsis screen is negative. Care prior to arrival: None. 12:50 Method Of Arrival: EMS: [facility] 12:50 Acuity: LATASHA 3 ph Historical: - Allergies: 12:58 Trazodone; ph - Home Meds: 12:58 Dilantin Oral 100 mg three times a day [Active]; Risperdal Oral once daily [Active]; ph Ritalin Oral [Active]; - PMHx: 12:58 Alcoholism; Bipolar disorder; pancreatic cancer; Parkinsons; Seizures; ph - PSHx: 12:58 Unable to obtain; ph - Social history:: [place] [address] Screenin:59 Abuse screen: Denies threats or abuse. Denies injuries from another. Nutritional ph screening: No deficits noted. Tuberculosis screening: No symptoms or risk factors identified. Fall Risk None identified. Vital Signs: 12:55 BP 122 / 90; Pulse 96; Resp 18; Temp 97.6; Pulse Ox 95% on R/A; Weight 63.5 kg; Height ph 5 ft. 3 in. (160.02 cm); Pain 8/10; 12:55 Body Mass Index 24.80 (63.50 kg, 160.02 cm) ph ED Course: 12:49 Patient arrived in ED. ph 12:55 Triage completed. ph 12:56 Arm band placed on. ph 13:00 Rigo Cherry PA is PHCP. jr8 13:00 Braydon Mejia MD is Attending Physician. jr8 Administered Medications: No medications were administered Outcome: 13:10 Patient left the ED. sg Signatures: Haroon Elizondo RN RN Rigo Vasquez PA PA jr8 Carlie Melo RN RN Braydon Mejia MD MD
[2017-10-19 13:17] VITALS: BP 122/90; TEMP 97.6; O2SAT 95
--- NOTE | 2017-10-21 06:17 | EDPHYS ---
Physician Documentation [facility] Name: Walt Velazquez Age: 46 yrs Sex: Male : 1970 Arrival Date: 10/19/2017 Time: 12:49 Bed 18 Private MD: ED Physician Braydon Mejia HPI: 10/19 13:42 This 46 yrs old Male presents to ER via EMS with complaints of etoh gs intoxication, Abdominal Pain. 13:42 The patient presents to the emergency department. gs 13:43 The patient presents to the emergency department with a history of substance abuse, gs Type: vodka. Onset: The symptoms/episode began/occurred today. Associated signs and symptoms: Pertinent positives; abdominal pain. Severity of symptoms: At their worst the symptoms were moderate in the emergency department the symptoms are unchanged. The patient has experienced similar episodes in the past, chronically. Historical: - Allergies: 12:58 Trazodone; ph - Home Meds: 12:58 Dilantin Oral 100 mg three times a day [Active]; Risperdal Oral once daily [Active]; ph Ritalin Oral [Active]; - PMHx: 12:58 Alcoholism; Bipolar disorder; pancreatic cancer; Parkinsons; Seizures; ph - PSHx: 12:58 Unable to obtain; ph - Social history:: The [place] [address]. ROS: 13:43 Unable to obtain ROS due to patient being uncooperative. gs Exam: 13:43 Eyes: Pupils equal round and reactive to light, extra-ocular motions intact. Lids and gs lashes normal. Conjunctiva and sclera are non-icteric and not injected. Cornea within normal limits. Periorbital areas with no swelling, redness, or edema. ENT: Nares patent. No nasal discharge, no septal abnormalities noted. Tympanic membranes are normal and external auditory canals are clear. Oropharynx with no redness, swelling, or masses, exudates, or evidence of obstruction, uvula midline. Mucous membranes moist. Neck: Trachea midline, no thyromegaly or masses palpated, and no cervical lymphadenopathy. Supple, full range of motion without nuchal rigidity, or vertebral point tenderness. No Meningismus. Chest/axilla: Normal chest wall appearance and motion. Nontender with no deformity. No lesions are appreciated. Cardiovascular: Regular rate and rhythm with a normal S1 and S2. No gallops, murmurs, or rubs. Normal PMI, no JVD. No pulse deficits. Respiratory: Lungs have equal breath sounds bilaterally, clear to auscultation and percussion. No rales, rhonchi or wheezes noted. No increased work of breathing, no retractions or nasal flaring. Back: No spinal tenderness. No costovertebral tenderness. Full range of motion. Skin: Warm, dry with normal turgor. Normal color with no rashes, no lesions, and no evidence of cellulitis. MS/ Extremity: Pulses equal, no cyanosis. Neurovascular intact. Full, normal range of motion. Neuro: Awake and alert, GCS 15, oriented to person, place, time, and situation. Cranial nerves II-XII grossly intact. Motor strength 5/5 in all extremities. Sensory grossly intact. Cerebellar exam normal. Normal gait. 13:43 Constitutional: The patient appears alert, awake. 13:43 Abdomen/GI: Palpation: nontender, in all quadrants, rebound tenderness, is not appreciated. Vital Signs: 12:55 BP 122 / 90; Pulse 96; Resp 18; Temp 97.6; Pulse Ox 95% on R/A; Weight 63.5 kg; Height ph 5 ft. 3 in. (160.02 cm); Pain 8/10; 12:55 Body Mass Index 24.80 (63.50 kg, 160.02 cm) ph MDM: 13:00 Patient medically screened. [facility] 13:43 Data reviewed: vital signs, nurses notes, old medical records, pt is chronic alcoholic, gs pain complaints multiple recent workups nondiagnostic. Administered Medications: No medications were administered Disposition: 10/19/17 13:10 Patient left the facility after being seen by provider. - Patient left due to unknown. Signatures: Haroon Elizondo RN RN Rigo Cherry PA PA jr8 Carlie Melo RN RN Mejia, MD KERWIN Bryson
== END 2017-10-19 13:10 | disposition left against medical advice (07) ==
LOC: ER 12:47
DX: F10.229 Alcohol dependence with intoxication, unspecified (principal); F31.9 Bipolar disorder, unspecified; G20 Parkinson's disease; Z85.07 Personal history of malignant neoplasm of pancreas; Z88.6 Allergy status to analgesic agent
CPT/HCPCS: 99282

== ENCOUNTER 2017-10-21 15:49 | Emergency (ER) | payer SELFPAY ==
[2017-10-21] MEDS ORDERED: NA CHLORIDE 0.9% 1,000 ML ONE (16:44)
[2017-10-21 16:58] LABS: Absolute Monocytes 0.4 K/uL (0.1-1.3); Absolute Neutrophil 1.7 K/uL (1.8-8.0); Basophils % 2.2 % (0-1.3); Eosinophils % 0.5 % (0-4.4); Hematocrit 36.3 % (39.6-49.0); Lymphocytes % 30.8 % (15.3-44.8); MCH 29.5 pg (27.0-35.0); MCV 89.4 fL (80-100); MPV 7.7 fL (7.6-11.3); Monocytes % 14.1 % (3.3-12.3); RBC Red Blood Cell Count 4.06 M/uL (4.33-5.43)
[2017-10-21] MEDS ORDERED: FOLIC ACID 1 MG, MULTIVITAMINS INJ 10 ML, THIAMINE HCL 100 MG in NA CHLORIDE 0.9% 1,000 ML IV ONE (17:00)
[2017-10-21 17:19] LABS: Bicarbonate 24 mEq/L (21-31); Glucose Level 125 mg/dL (65-120); Potassium 3.6 mEq/L (3.6-5.0); Sodium Level 136 mEq/L (135-145)
[2017-10-21 17:20] LABS: BUN Blood Urea Nitrogen 7 mg/dL (6-20)
--- NOTE | 2017-10-21 17:24 | EDPHYS ---
Physician Documentation [facility] Name: Walt Velazquez Age: 46 yrs Sex: Male : 1970 Arrival Date: 10/21/2017 Time: 15:54 Bed 28 Private MD: ED Physician Antione Ashby HPI: 10/21 16:36 This 46 yrs old Male presents to ER via EMS with complaints of suspected jr8 seizure. 16:36 The patient presents after having a single isolated seizure. Seizure onset: today. jr8 Context: the seizure(s) was witnessed, by no one. Seizure Hx: Original onset: longstanding. Associated injury: The patient did not suffer any apparent associated injury. Current symptoms: Currently, the patient is not experiencing any symptoms. The patient has experienced similar episodes in the past, chronically. The patient has been recently seen by a physician:. Patient came in by EMS after bystander called EMS because patient was laying in a field. Patient stated that he thinks he had another seizure. Patient alert and oriented to person, place, time, event. Not postictal at this time. Historical: - Allergies: 16:52 Trazodone; rk2 - PMHx: 16:52 Alcoholism; Bipolar disorder; pancreatic cancer; Parkinsons; Seizures; rk2 - Immunization history:: Pneumococcal vaccine is not up to date, Flu vaccine is not up to date. - Social history:: Smoking status: Patient/guardian denies using tobacco. ROS: 16:36 Eyes: Negative for injury, pain, redness, and discharge, ENT: Negative for injury, jr8 pain, and discharge, Neck: Negative for injury, pain, and swelling, Cardiovascular: Negative for chest pain, palpitations, and edema, Respiratory: Negative for shortness of breath, cough, wheezing, and pleuritic chest pain, Abdomen/GI: Negative for abdominal pain, nausea, vomiting, diarrhea, and constipation, Back: Negative for injury and pain, MS/Extremity: Negative for injury and deformity, Skin: Negative for injury, rash, and discoloration. 16:36 Neuro: Positive for seizure activity, Negative for altered mental status, dizziness, gait disturbance, headache, hearing loss, loss of consciousness, numbness, speech changes, syncope, near syncope, tingling, tinnitus, tremor, visual changes, weakness. Exam: 16:36 Head/Face: Normocephalic, atraumatic. Eyes: Pupils equal round and reactive to light, jr8 extra-ocular motions intact. Lids and lashes normal. Conjunctiva and sclera are non-icteric and not injected. Cornea within normal limits. Periorbital areas with no swelling, redness, or edema. ENT: Nares patent. No nasal discharge, no septal abnormalities noted. Tympanic membranes are normal and external auditory canals are clear. Oropharynx with no redness, swelling, or masses, exudates, or evidence of obstruction, uvula midline. Mucous membranes moist. Neck: Trachea midline, no thyromegaly or masses palpated, and no cervical lymphadenopathy. Supple, full range of motion without nuchal rigidity, or vertebral point tenderness. No Meningismus. Cardiovascular: Regular rate and rhythm with a normal S1 and S2. No gallops, murmurs, or rubs. Normal PMI, no JVD. No pulse deficits. Respiratory: Lungs have equal breath sounds bilaterally, clear to auscultation and percussion. No rales, rhonchi or wheezes noted. No increased work of breathing, no retractions or nasal flaring. Abdomen/GI: Soft, non-tender, with normal bowel sounds. No distension or tympany. No guarding or rebound. No evidence of tenderness throughout. Back: No spinal tenderness. No costovertebral tenderness. Full range of motion. Skin: Warm, dry with normal turgor. Normal color with no rashes, no lesions, and no evidence of cellulitis. MS/ Extremity: Pulses equal, no cyanosis. Neurovascular intact. Full, normal range of motion. Neuro: Awake and alert, GCS 15, oriented to person, place, time, and situation. Cranial nerves II-XII grossly intact. Motor strength 5/5 in all extremities. Sensory grossly intact. Cerebellar exam normal. Normal gait. Vital Signs: 16:33 BP 108 / 73; Pulse 84; Resp 17; Temp 98.3; Pulse Ox 97% on R/A; rk2 17:30 BP 111 / 75; Pulse 80; Resp 17; Pulse Ox 97% ; rk2 19:30 BP 117 / 91; Pulse 68; Resp 17; Pulse Ox 100% on R/A; rk2 MDM: 15:55 Patient medically screened. jr8 17:22 Data reviewed: vital signs, nurses notes, lab test result(s), and as a result, I will jr8 discharge patient. Data interpreted: Pulse oximetry: on room air is 97 %. Interpretation: normal. Counseling: I had a detailed discussion with the patient and/or guardian regarding: the historical points, exam findings, and any diagnostic results supporting the discharge/admit diagnosis, lab results, the need for outpatient follow up, a family practitioner, to return to the emergency department if symptoms worsen or persist or if there are any questions or concerns that arise at home. Response to treatment: patient is well hydrated. 10/21 16:06 Order name: CBC with Diff jr8 10/21 16:06 Order name: Basic Metabolic Panel jr8 10/21 16:06 Order name: CBC with Automated Diff; Complete Time: 17:02 EDMS 10/21 16:06 Order name: Basic Metabolic Panel; Complete Time: 17:22 EDMN 10/21 16:06 Order name: IV; Complete Time: 16:42 jr8 Administered Medications: 16:48 Drug: NS 0.9% 1000 ml Route: IV; Rate: 1000 ml; Site: left antecubital; rk2 17:30 Follow up: Response: No adverse reaction; IV Status: Completed infusion rk2 17:42 Drug: Banana Bag - (NS 0.9% 1000 ml, foLIC Acid 1 mg, Thiamine 100 mg, Multivitamin 1 rk2 amp) Route: IV; Rate: calculated rate; Site: left antecubital; 19:37 Follow up: Response: No adverse reaction; IV Status: Completed infusion rk2 Disposition: 10/21/17 17:23 Discharged to Home. Impression: Seizures, Alcohol abuse. - Condition is Stable. - Discharge Instructions: Alcohol Intoxication. - Medication Reconciliation Form, Thank You Letter, Antibiotic Education, Prescription Opioid Use form. - Follow up: Private Physician; When: 1 - 2 days; Reason: Recheck today's complaints, Continuance of care, Re-evaluation by your physician. - Problem is new. - Symptoms have improved. Addendum: 10/23/2017 07:04 Co-signature as Attending Physician, Antione Ashby MD I agree with the assessment and w a plan of care. Signatures: Dispatcher [employer] [facility] Rigo Cherry PA PA jr8 Symone, Antione, MD MD wa [place], Mariana, RN RN rk2 Corrections: (The following items were deleted from the chart) 10/21 19:39 17:23 10/21/2017 17:23 Discharged to Home. Impression: Seizures; Alcohol abuse. rk2 Condition is Stable. Forms are Medication Reconciliation Form, Thank You Letter, Antibiotic Education, Prescription Opioid Use. Follow up: Private Physician; When: 1 - 2 days; Reason: Recheck today's complaints, Continuance of care, Re-evaluation by your physician. Problem is new. Symptoms have improved. jr8
--- NOTE | 2017-10-21 17:24 | ER ---
Nurse's Notes [facility] Name: Walt Velazquez Age: 46 yrs Sex: Male : 1970 Arrival Date: 10/21/2017 Time: 15:54 Bed 28 Private MD: Diagnosis: Seizures;Alcohol abuse Presentation: 10/21 16:31 Presenting complaint: EMS states: Pt. arrived by EMS, report given that pt. felt as if rk2 he was going to have a seizure and laid down on the sidewalk. Bystander called 911. Upon arrival of EMS pt. was alert and oriented x 4. Pt. denies any LOC. Transition of care: patient was not received from another setting of care. Onset of symptoms was October 21, 2017. Initial Sepsis Screen: Does the patient meet any 2 criteria? No. Patient's initial sepsis screen is negative. Does the patient have a suspected source of infection? No. Patient's initial sepsis screen is negative. Care prior to arrival: None. 16:31 Method Of Arrival: EMS [facility] 16:31 Acuity: LATASHA 3 rk2 Triage Assessment: 16:54 General: Appears in no apparent distress. well developed, well nourished, Behavior is rk2 calm, cooperative. Pain: Denies pain. Neuro: Level of Consciousness is alert, obeys commands, Oriented to person, place, time, situation. Respiratory: Airway is patent Respiratory effort is even, unlabored, Respiratory pattern is regular, symmetrical. Derm: Skin is pink, warm \T\ dry. Historical: - Allergies: 16:52 Trazodone; rk2 - PMHx: 16:52 Alcoholism; Bipolar disorder; pancreatic cancer; Parkinsons; Seizures; rk2 - Immunization history:: Pneumococcal vaccine is not up to date, Flu vaccine is not up to date. - Social history:: Smoking status: Patient/guardian denies using tobacco. Screenin:53 Abuse screen: Denies threats or abuse. Nutritional screening: No deficits noted. rk2 Tuberculosis screening: No symptoms or risk factors identified. Fall Risk Secondary diagnosis (15 points) IV access (20 points). Assessment: 16:30 Reassessment: Pt. resting in room, alert and oriented. Appears to be in no obvious rk2 distress... No needs voiced \T\ this time. 17:32 Reassessment: Pt. placed up for DC; however, per provider pt. to complete iv rk2 fluids/medication before DC. 18:35 Reassessment: Pt. appears to be sleeping in room \T\ this time... no obvious distress. No rk2 needs voiced. Iv infusing. No family \T\ bedside. 19:38 Reassessment: Pt. pulled his own iv out... reviewed DC instructions with pt. Pt. able rk2 to ambulate out on his own. Vital Signs: 16:33 BP 108 / 73; Pulse 84; Resp 17; Temp 98.3; Pulse Ox 97% on R/A; rk2 17:30 BP 111 / 75; Pulse 80; Resp 17; Pulse Ox 97% ; rk2 19:30 BP 117 / 91; Pulse 68; Resp 17; Pulse Ox 100% on R/A; rk2 ED Course: 15:54 Patient arrived in ED. rk2 15:55 Rigo Cherry PA is PHCP. jr8 15:55 Antione Ashby MD is Attending Physician. jr8 16:11 Mariana Hennessy, ROBERTO is Primary Nurse. rk2 16:33 Triage completed. rk2 16:42 CBC with Diff Sent. rk2 16:42 Basic Metabolic Panel Sent. rk2 16:53 Inserted saline lock: 20 gauge in left. rk2 16:53 Patient has correct armband on for positive identification. Bed in low position. Call rk2 light in reach. Side rails up X2. 16:54 Arm band placed on. rk2 19:39 No provider procedures requiring assistance completed. IV discontinued. rk2 Administered Medications: 16:48 Drug: NS 0.9% 1000 ml Route: IV; Rate: 1000 ml; Site: left antecubital; rk2 17:30 Follow up: Response: No adverse reaction; IV Status: Completed infusion rk2 17:42 Drug: Banana Bag - (NS 0.9% 1000 ml, foLIC Acid 1 mg, Thiamine 100 mg, Multivitamin 1 rk2 amp) Route: IV; Rate: calculated rate; Site: left antecubital; 19:37 Follow up: Response: No adverse reaction; IV Status: Completed infusion rk2 Outcome: 17:23 Discharge ordered by . jr8 19:39 Discharged to home ambulatory. rk2 19:39 Condition: good 19:39 Discharge instructions given to patient. 19:39 Patient left the ED. rk2 Signatures: Rigo Cherry PA PA jr8 Mariana Hennessy RN RN rk2
[2017-10-21 19:51] VITALS: TEMP 98.3
[2017-10-21 19:54] VITALS: BP 117/91; O2SAT 100
[2017-10-22] MEDS ORDERED: FOLIC ACID 1 MG, MULTIVITAMINS INJ 10 ML, THIAMINE HCL 100 MG in NA CHLORIDE 0.9% 1,000 ML IV SCH (09:00)
== END 2017-10-21 19:39 | disposition home or self-care (01) ==
LOC: ER 15:49
DX: R56.9 Unspecified convulsions (principal); F10.10 Alcohol abuse, uncomplicated; Z88.8 Allergy status to other drugs, medicaments and biological substances
CPT/HCPCS: 36415; 80048; 85025; 96361; 96365; 96366; 99284; J3411; J7030

== ENCOUNTER 2017-10-22 19:52 | Emergency (ER) | payer SELFPAY ==
--- NOTE | 2017-10-22 20:11 | ER ---
Nurse's Notes [facility] Name: Walt Velazquez Age: 46 yrs Sex: Male : 1970 Arrival Date: 10/22/2017 Time: 19:53 Bed 27 Private MD: Diagnosis: Alcohol abuse with intoxication;Patient's noncompliance with medical treatment and regimen Presentation: 10/22 19:53 Presenting complaint: EMS states: Patient reports being unable to stand up after aj drinking 4 large beers this evening. Patient reports pain to neck. Transition of care: patient was not received from another setting of care. Onset of symptoms was October 22, 2017. Initial Sepsis Screen: Does the patient meet any 2 criteria? No. Patient's initial sepsis screen is negative. Does the patient have a suspected source of infection? No. Patient's initial sepsis screen is negative. Care prior to arrival: None. 19:53 Method Of Arrival: EMS: [facility] 19:53 Acuity: LATASHA 4 aj Triage Assessment: 19:55 General: Appears in no apparent distress. comfortable, Behavior is calm, cooperative, aj appropriate for age. General: Smells of alcohol. Pain: Complains of pain in back of neck. Neuro: Level of Consciousness is awake, alert, obeys commands, Oriented to person, place, time, situation, Appropriate for age. Respiratory: Airway is patent Respiratory effort is even, unlabored, Respiratory pattern is regular, symmetrical. Derm: Skin is intact, is healthy with good turgor, Skin is pink, warm \T\ dry. normal. Historical: - Allergies: 19:55 Trazodone; aj - Home Meds: 19:55 Dilantin Oral 100 mg three times a day [Active]; Risperdal Oral once daily [Active]; aj Ritalin Oral [Active]; - PMHx: 19:55 Alcoholism; Bipolar disorder; pancreatic cancer; Parkinsons; Seizures; aj - Immunization history:: Adult Immunizations up to date. - Social history:: Smoking status: Patient/guardian denies using tobacco, Patient uses alcohol, on a daily basis. Screenin:40 Abuse screen: Denies threats or abuse. Denies injuries from another. Nutritional lk1 screening: No deficits noted. Tuberculosis screening: No symptoms or risk factors identified. Fall Risk Total Cadena Fall Scale indicates High Risk Score (45 or more points). Fall prevention measures have been instituted. Side Rails Up X 2 Placed Close to Nursing Station Frequent Obs/Assessments Occuring Family Present and informed to notify staff if the need to leave the bedside As available patient and family educated on Fall Prevention Program and Strategies. Assessment: 20:15 General: Appears uncomfortable, Behavior is calm, cooperative, appropriate for age. lk1 Pain: Denies pain. Neuro: Level of Consciousness is awake, alert, obeys commands, Oriented to person, place, time, situation, [employer] Analyst are equal bilaterally Moves all extremities. Full function Gait is unsteady, Speech is normal, Facial symmetry appears normal. Neuro: patient has tremors and is unsteady on his feet. Cardiovascular: Heart tones S1 S2 present Capillary refill is brisk Patient's skin is warm and dry. Respiratory: Airway is patent Respiratory effort is even, unlabored, Respiratory pattern is regular, symmetrical, Breath sounds are clear bilaterally. GI: Abdomen is round non-distended. : No signs and/or symptoms were reported regarding the genitourinary system. EENT: No signs and/or symptoms were reported regarding the EENT system. Derm: No signs and/or symptoms reported regarding the dermatologic system. Musculoskeletal: No signs and/or symptoms reported regarding the musculoskeletal system. Vital Signs: 19:55 BP 133 / 88; Pulse 86; Resp 17; Temp 98.4; Pulse Ox 96% on R/A; Weight 65.77 kg; Height aj 5 ft. 3 in. (160.02 cm); 20:30 BP 127 / 89; Pulse 79; Resp 17; Pulse Ox 97% on R/A; Pain 0/10; lk1 19:55 Body Mass Index 25.69 (65.77 kg, 160.02 cm) aj ED Course: 19:53 Patient arrived in ED. aj 19:55 Triage completed. aj 19:55 Arielle Amaya FNP-C [facility]. snw 19:55 Braydon Mejia MD is Attending Physician. snw 19:55 Arm band placed on left wrist. Patient placed in an exam room. aj 20:32 Amanda Farrar, ROBERTO is Primary Nurse. lk1 20:36 No provider procedures requiring assistance completed. Patient did not have IV access lk1 during this emergency room visit. 20:40 Patient has correct armband on for positive identification. Bed in low position. Call lk1 light in reach. Administered Medications: No medications were administered Outcome: 20:11 Discharge ordered by . jonathan 20:36 Discharged to home via wheelchair. lk1 20:36 Condition: good 20:36 Discharge instructions given to patient, Instructed on discharge instructions, follow up and referral plans. medication usage, safety practices, stop using ETOH Demonstrated understanding of instructions, follow-up care, medications, Prescriptions given X 1. 20:41 Patient left the ED. lk1 Signatures: Altagracia Harrington, RN RN Arielle Cooper, INDUSTRIAL MAINTENANCE MECHANIC-C INDUSTRIAL MAINTENANCE MECHANIC-Csnw Amanda Farrar, RN RN lk1
--- NOTE | 2017-10-22 20:11 | EDPHYS ---
Physician Documentation [facility] Name: Walt Velazquez Age: 46 yrs Sex: Male : 1970 Arrival Date: 10/22/2017 Time: 19:53 Bed 27 Private MD: ED Physician Braydon Mejia HPI: 10/22 20:26 This 46 yrs old Male presents to ER via EMS with complaints of fall. snw 20:26 Details of fall: The patient fell from an upright position. Onset: The symptoms/episode snw began/occurred suddenly. Associated injuries: The patient sustained no obvious injury. Severity of symptoms: At their worst the symptoms were mild. The patient has experienced similar episodes in the past, chronically, with the last episode occurring yesterday. The patient has been recently seen by a physician: The patient has been recently seen at the [facility] Emergency Department, yesterday, for similar complaints labs were performed. Mr. Velazquez gets picked up regularly by the police and then comes to the ED in no acute distress. He in non-compliant with medications, drinks daily, and is not any different today than any other in the ED. He had labs and studies yesterday that were unremarkable. Pt returns today in same condition. Historical: - Allergies: 19:55 Trazodone; aj - Home Meds: 19:55 Dilantin Oral 100 mg three times a day [Active]; Risperdal Oral once daily [Active]; aj Ritalin Oral [Active]; - PMHx: 19:55 Alcoholism; Bipolar disorder; pancreatic cancer; Parkinsons; Seizures; aj - Immunization history:: Adult Immunizations up to date. - Social history:: Smoking status: Patient/guardian denies using tobacco, Patient uses alcohol, on a daily basis. ROS: 20:21 Constitutional: Negative for fever, chills, and weight loss, Eyes: Negative for injury, snw pain, redness, and discharge, ENT: Negative for injury, pain, and discharge, Neck: Negative for injury, pain, and swelling, Cardiovascular: Negative for chest pain, palpitations, and edema, Respiratory: Negative for shortness of breath, cough, wheezing, and pleuritic chest pain, Abdomen/GI: Negative for abdominal pain, nausea, vomiting, diarrhea, and constipation, Back: Negative for injury and pain, : Negative for injury, bleeding, discharge, and swelling, MS/Extremity: Negative for injury and deformity, Skin: Negative for injury, rash, and discoloration. 20:21 Neuro: Positive for "police [place] me [place] the [place], I had a seizure". Exam: 20:19 Constitutional: This is a well developed, well nourished patient who is awake, alert, snw and in no acute distress. +ETOH Head/Face: Normocephalic, atraumatic. Eyes: Pupils equal round and reactive to light, extra-ocular motions intact. Lids and lashes normal. Conjunctiva and sclera are non-icteric and not injected. Cornea within normal limits. Periorbital areas with no swelling, redness, or edema. ENT: Nares patent. No nasal discharge, no septal abnormalities noted. Tympanic membranes are normal and external auditory canals are clear. Oropharynx with no redness, swelling, or masses, exudates, or evidence of obstruction, uvula midline. Mucous membranes moist. Neck: Trachea midline, no thyromegaly or masses palpated, and no cervical lymphadenopathy. Supple, full range of motion without nuchal rigidity, or vertebral point tenderness. No Meningismus. Chest/axilla: Normal chest wall appearance and motion. Nontender with no deformity. No lesions are appreciated. Cardiovascular: Regular rate and rhythm with a normal S1 and S2. No gallops, murmurs, or rubs. Normal PMI, no JVD. No pulse deficits. Respiratory: Lungs have equal breath sounds bilaterally, clear to auscultation and percussion. No rales, rhonchi or wheezes noted. No increased work of breathing, no retractions or nasal flaring. Abdomen/GI: Soft, non-tender, with normal bowel sounds. No distension or tympany. No guarding or rebound. No evidence of tenderness throughout. Back: No spinal tenderness. No costovertebral tenderness. Full range of motion. Skin: Warm, dry with normal turgor. Normal color with no rashes, no lesions, and no evidence of cellulitis. MS/ Extremity: Pulses equal, no cyanosis. Neurovascular intact. Full, normal range of motion. 20:19 Neuro: Orientation: to person, place \\T\\ time. Mentation: appropriate for stated age, seizure activity, is not displayed by the patient, pt with tremor, hx of parkinson's and epilepsy, + hx of alcoholism, seen yesterday in ED for same. . Vital Signs: 19:55 BP 133 / 88; Pulse 86; Resp 17; Temp 98.4; Pulse Ox 96% on R/A; Weight 65.77 kg; Height aj 5 ft. 3 in. (160.02 cm); 20:30 BP 127 / 89; Pulse 79; Resp 17; Pulse Ox 97% on R/A; Pain 0/10; lk1 19:55 Body Mass Index 25.69 (65.77 kg, 160.02 cm) aj [facility]: 19:56 Patient medically screened. 20:22 Data reviewed: vital signs, nurses notes. Data interpreted: Pulse oximetry: on room air snw is 96 %. Interpretation: normal. Counseling: I had a detailed discussion with the patient and/or guardian regarding: the historical points, exam findings, and any diagnostic results supporting the discharge/admit diagnosis, the presence of at least one elevated blood pressure reading (>120/80) during this emergency department visit, the need for outpatient follow up, ETOH abuse, pt states he cannot/will not quit, states he is not taking anticonvulsants x 1 month. Administered Medications: No medications were administered Disposition: 10/23 19:17 Co-signature as Attending Physician, Braydon Mejia MD. Disposition: 10/22/17 20:11 Discharged to Home. Impression: Alcohol abuse with intoxication, Patient's noncompliance with medical treatment and regimen. - Condition is Stable. - Discharge Instructions: Alcohol and Drug Addiction, Finding Treatment, Alcohol Intoxication, Seizure, Adult, Alcohol Abuse and Nutrition, Alcoholic Liver Disease, [id number]. - Prescriptions for Dilantin Kapseal 100 mg Oral Capsule - take 3 capsule by ORAL route every 12 hours; 60 capsule. - Medication Reconciliation Form, Thank You Letter, Antibiotic Education, Prescription Opioid Use form. - Follow up: Private Physician; When: Tomorrow; Reason: Recheck today's complaints, Continuance of care, Re-evaluation by your physician. Signatures: Altagracia Harrington RN Arielle Baldwin, RECEPTION SPECIALIST-C RECEPTION SPECIALIST-Csnw Amanda Farrar RN RN lk1 Braydon Mejia MD MD Corrections: (The following items were deleted from the chart) 10/22 20:41 20:11 10/22/2017 20:11 Discharged to Home. Impression: Alcohol abuse with intoxication; lk1 Patient's noncompliance with medical treatment and regimen. Condition is Stable. Forms are Medication Reconciliation Form, Thank You Letter, Antibiotic Education, Prescription Opioid Use. Follow up: Private Physician; When: Tomorrow; Reason: Recheck today's complaints, Continuance of care, Re-evaluation by your physician. snw
[2017-10-22 20:44] VITALS: TEMP 98.4
[2017-10-22 20:46] VITALS: BP 127/89; O2SAT 97
== END 2017-10-22 20:41 | disposition home or self-care (01) ==
LOC: ER 19:52
DX: F10.229 Alcohol dependence with intoxication, unspecified (principal); Z91.19 Patient's noncompliance with other medical treatment and regimen; R56.9 Unspecified convulsions; F31.9 Bipolar disorder, unspecified
CPT/HCPCS: 99283

== ENCOUNTER 2017-10-28 18:12 | Emergency (ER) | payer SELFPAY ==
[2017-10-28] MEDS ORDERED: NA CHLORIDE 0.9% 1,000 ML ONE (19:48)
[2017-10-28] MEDS ORDERED: THIAMINE 200 MG/2 ML INJ ONE (19:48)
--- NOTE | 2017-10-28 19:50 | RAD REPORT ---
EXAM DESCRIPTION: CT - Head Brain Wo Cont - 10/28/2017 7:27 pm CLINICAL HISTORY: Seizure COMPARISON: August 06 TECHNIQUE: Axial 5 mm thick images of the head were obtained without IV contrast. All CT scans are performed using dose optimization technique as appropriate and may include automated exposure control or mA/KV adjustment according to patient size. FINDINGS: No intracranial hemorrhage, mass, edema or shift of mid-line structures. No acute cortical based infarction. Patient has advanced volume loss change for age. Chronic ischemic changes are evid ent as well. Ventricles do appear to be in proportion to the amount of volume loss. No abnormal extra -axial fluid collections. Intracranial findings are similar to the prior study. Mastoid air cells and visualized portions of the paranasal sinuses are clear. No acute bony findings. IMPRESSION: Advanced for age atrophy along with mild chronic ischemic change. No acute intracranial finding and no significant change from comparison.
[2017-10-28] MEDS ORDERED: FOLIC ACID 5 MG/ML VIAL ONE (19:51)
[2017-10-28 20:13] LABS: Absolute Monocytes 0.3 K/uL (0.1-1.3)
[2017-10-28 20:18] LABS: Bicarbonate 30 mEq/L (21-31); Glucose Level 124 mg/dL (65-120); Potassium 3.8 mEq/L (3.6-5.0); Sodium Level 139 mEq/L (135-145)
[2017-10-28 20:19] LABS: BUN Blood Urea Nitrogen 6 mg/dL (6-20)
[2017-10-28 20:21] LABS: Absolute Neutrophil 0.8 K/uL (1.8-8.0); Eosinophils % 2.1 % (0-4.4); Hematocrit 36.1 % (39.6-49.0); Lymphocytes % 42.5 % (15.3-44.8); MCH 29.6 pg (27.0-35.0); MPV 7.7 fL (7.6-11.3); Monocytes % 15.2 % (3.3-12.3); RBC Red Blood Cell Count 4.01 M/uL (4.33-5.43)
[2017-10-28 20:27] LABS: Alcohol Serum/Plasma 425 mg/dl
--- NOTE | 2017-10-28 20:48 | ER ---
Nurse's Notes [facility] Name: Walt Velazquez Age: 46 yrs Sex: Male : 1970 Arrival Date: 10/28/2017 Time: 18:14 Bed 27 Private MD: Diagnosis: Epilepsy and recurrent seizures;Alcohol abuse with intoxication Presentation: 10/28 18:14 Presenting complaint: EMS states: received 911 call for seizure. EMS reports pt was A \\T\\ aa5 O x 4 upon scene arrival. Pt currently A \\T\\ O x 4, denies any complaints. Pt smells of alcohol. Pt states "I just drank 3 beers today". Transition of care: patient was not received from another setting of care. Onset of symptoms was October 28, 2017. Initial Sepsis Screen: Does the patient meet any 2 criteria? No. Patient's initial sepsis screen is negative. Does the patient have a suspected source of infection? No. Patient's initial sepsis screen is negative. Care prior to arrival: None. 18:14 Method Of Arrival: EMS: [facility] aa5 18:14 Acuity: LATASHA 3 aa5 Triage Assessment: 18:30 General: Appears unkempt, Behavior is calm, cooperative, Smells of alcohol, very bad mb3 body order. Pain: Denies pain. EENT: No signs and/or symptoms were reported regarding the EENT system. Neuro: Level of Consciousness is awake, alert. Cardiovascular: No deficits noted. Respiratory: No deficits noted. GI: No signs and/or symptoms were reported involving the gastrointestinal system. : No signs and/or symptoms were reported regarding the genitourinary system. Musculoskeletal: No signs and/or symptoms reported regarding the musculoskeletal system. Historical: - Allergies: 18:16 Trazodone; aa5 - Home Meds: 23:43 Dilantin Oral 100 mg three times a day [Active]; Risperdal Oral once daily [Active]; mb3 Ritalin Oral [Active]; - PMHx: 18:16 Alcoholism; Bipolar disorder; pancreatic cancer; Parkinsons; Seizures; aa5 - Immunization history:: Adult Immunizations unknown. - Family history:: not pertinent. - Social history:: Smoking status: Patient/guardian denies using tobacco, never smoked. - Hospitalizations: : No recent hospitalization is reported. Screenin:30 Fall Risk Fall in past 12 months (25 points). Secondary diagnosis (15 points) IV access mb3 (20 points). Ambulatory Aid- Furniture (30 pts.). Gait- Impaired (20 pts.). Mental Status- Oriented to own ability (0 pts). Total Cadena Fall Scale indicates High Risk Score (45 or more points). 23:38 Abuse screen: Denies threats or abuse. Nutritional screening: No deficits noted. mb3 Tuberculosis screening: No symptoms or risk factors identified. Assessment: 18:19 General: Appears comfortable, unkempt, Behavior is calm, cooperative, slurred voice, mb3 not for sure how much alcohol he has drank. Pain: Complains of pain in left amos. Neuro: Level of Consciousness is awake, alert, obeys commands, Oriented to person, place, time, situation. Cardiovascular: No deficits noted. Heart tones present Capillary refill < 3 seconds Pulses are all present. Respiratory: No deficits noted. Airway is patent Respiratory effort is even, unlabored, Respiratory pattern is regular, symmetrical, Breath sounds are clear bilaterally. GI: No signs and/or symptoms were reported involving the gastrointestinal system. Abdomen is flat, Bowel sounds present X 4 quads. : No signs and/or symptoms were reported regarding the genitourinary system. Musculoskeletal: No signs and/or symptoms reported regarding the musculoskeletal system. Capillary refill < 3 seconds, Tenderness present in right trapezius and right scapular area. 19:45 Reassessment: No changes from previously documented assessment. Patient and/or family mb3 updated on plan of care and expected duration. Pain level reassessed. Patient is alert, oriented x 3, equal unlabored respirations, skin warm/dry/pink. Patient denies pain at this time. 21:10 Reassessment: No changes from previously documented assessment. Patient and/or family mb3 updated on plan of care and expected duration. Pain level reassessed. Patient is alert, oriented x 3, equal unlabored respirations, skin warm/dry/pink. Patient denies pain at this time. 22:15 Reassessment: Patient and/or family updated on plan of care and expected duration. Pain mb3 level reassessed. Patient is alert, oriented x 3, equal unlabored respirations, skin warm/dry/pink. Patient denies pain at this time. 23:37 Reassessment: Patient and/or family updated on plan of care and expected duration. Pain mb3 level reassessed. Patient is alert, oriented x 3, equal unlabored respirations, skin warm/dry/pink. Patient denies pain at this time. Vital Signs: 18:16 BP 114 / 76; Pulse 93; Resp 18 S; Temp 98.2(O); Pulse Ox 95% on R/A; Pain 0/10; aa5 19:15 BP 120 / 86; Pulse 79; Resp 18; Pulse Ox 97% on R/A; Pain 0/10; mb3 20:37 BP 127 / 84; Pulse 77; Resp 16; Pulse Ox 98% on R/A; Pain 0/10; mb3 21:32 BP 125 / 87; Pulse 73; Resp 18; Pulse Ox 97% on R/A; mb3 23:32 BP 100 / 62; Pulse 72; Resp 16; Pulse Ox 99% on R/A; Pain 0/10; mb3 Mariia Coma Score: 18:30 Eye Response: spontaneous(4). Verbal Response: oriented(5). Motor Response: obeys mb3 commands(6). Total: 15. ED Course: 18:14 Patient arrived in ED. aa5 18:15 Triage completed. aa5 18:16 Arm band placed on. aa5 18:19 Irwin Monson, RN is Primary Nurse. mb3 18:30 Bed in low position. Call light in reach. Side rails up X2. Seizure precautions mb3 initiated. 19:04 Kaiser Marie MD is Attending Physician. rn 19:27 CT completed. Patient tolerated procedure well. Patient moved to CT via stretcher. vm2 Patient moved back from CT. 19:27 CT Head Brain wo Cont In Process Unspecified. EDMS 20:16 Inserted saline lock: 18 gauge in right antecubital area, using aseptic technique. mb3 23:40 No provider procedures requiring assistance completed. IV discontinued, intact, mb3 bleeding controlled, No redness/swelling at site. Pressure dressing applied. Administered Medications: 19:55 Drug: Banana Bag - (NS 0.9% 1000 ml, foLIC Acid 1 mg, Thiamine 100 mg, Multivitamin 1 mb3 amp) Route: IV; Rate: calculated rate; Site: right antecubital; 21:31 Follow up: Response: No adverse reaction; IV Status: Completed infusion; IV Intake: mb3 1000ml 23:45 Follow up: Response: No adverse reaction mb3 21:45 Drug: Phenytoin 1 grams Route: IVPB; Site: right antecubital; mb3 23:45 Follow up: Response: No adverse reaction; IV Status: Completed infusion; IV Intake: mb3 250ml Intake: 21:31 IV: 1000ml; Total: 1000ml. mb3 23:45 IV: 250ml; Total: 1250ml. mb3 Outcome: 20:46 Discharge ordered by . rn 23:44 Discharged to home via wheelchair. mb3 23:44 Condition: stable 23:44 Discharge instructions given to patient, Instructed on discharge instructions, safety practices, Demonstrated understanding of instructions. 23:46 Patient left the ED. mb3 Signatures: Dispatcher [employer] EDKaiser Solano MD MD rn Calderon, Audri RN RN aa5 Melyssa Alfonso 2 Irwin Monson RN RN mb3
--- NOTE | 2017-10-28 20:48 | EDPHYS ---
Physician Documentation [facility] Name: Walt Velazquez Age: 46 yrs Sex: Male : 1970 Arrival Date: 10/28/2017 Time: 18:14 Bed 27 Private MD: ED Physician Kaiser Marie HPI: 10/28 19:14 This 46 yrs old Male presents to ER via EMS with complaints of Probable rn Seizure. 19:14 The patient presents after having a possible seizure episode. Associated injury: The rn patient did not suffer any apparent associated injury. Current symptoms: confusion. The patient has experienced similar episodes in the past. Reports drinking today, was at friends house, woke up on side of road, unknown details, patient called 911, states has seizures almost daily, compliant with dilantin. No new pain, + chronic pain to right shoulder and left knee. . Historical: - Allergies: 18:16 Trazodone; aa5 - Home Meds: 23:43 Dilantin Oral 100 mg three times a day [Active]; Risperdal Oral once daily [Active]; mb3 Ritalin Oral [Active]; - PMHx: 18:16 Alcoholism; Bipolar disorder; pancreatic cancer; Parkinsons; Seizures; aa5 - Immunization history:: Adult Immunizations unknown. - Family history:: not pertinent. - Social history:: Smoking status: Patient/guardian denies using tobacco, never smoked. - Hospitalizations: : No recent hospitalization is reported. ROS: 19:15 Constitutional: Negative for fever, chills, and weight loss, Eyes: Negative for injury, rn pain, redness, and discharge, ENT: Negative for injury, pain, and discharge, Neck: Negative for injury, pain, and swelling, Cardiovascular: Negative for chest pain, palpitations, and edema, Respiratory: Negative for shortness of breath, cough, wheezing, and pleuritic chest pain, Abdomen/GI: Negative for abdominal pain, nausea, vomiting, diarrhea, and constipation, Back: Negative for injury and pain, MS/Extremity: Negative for deformity, Skin: Negative for injury, rash, and discoloration, Neuro: Negative for headache, weakness, numbness, tingling Exam: 19:15 Constitutional: This is a well developed, well nourished patient who is awake, alert, rn and in no acute distress. Head/Face: Normocephalic, atraumatic. Eyes: Pupils equal round and reactive to light, extra-ocular motions intact. Lids and lashes normal. Conjunctiva and sclera are non-icteric and not injected. Cornea within normal limits. Periorbital areas with no swelling, redness, or edema. Neck: Trachea midline, no thyromegaly or masses palpated, and no cervical lymphadenopathy. Supple, full range of motion without nuchal rigidity, or vertebral point tenderness. No Meningismus. Cardiovascular: Regular rate and rhythm with a normal S1 and S2. No gallops, murmurs, or rubs. Normal PMI, no JVD. No pulse deficits. Respiratory: Lungs have equal breath sounds bilaterally, clear to auscultation and percussion. No rales, rhonchi or wheezes noted. No increased work of breathing, no retractions or nasal flaring. Abdomen/GI: Soft, non-tender, with normal bowel sounds. No distension or tympany. No guarding or rebound. No evidence of tenderness throughout. MS/ Extremity: Pulses equal, no cyanosis. Neurovascular intact. Full, normal range of motion. Equal circumference. Neuro: Awake and alert, GCS 15, oriented to person, place, time, and situation. Cranial nerves II-XII grossly intact. Motor strength 5/5 in all extremities. Sensory grossly intact. Vital Signs: 18:16 BP 114 / 76; Pulse 93; Resp 18 S; Temp 98.2(O); Pulse Ox 95% on R/A; Pain 0/10; aa5 19:15 BP 120 / 86; Pulse 79; Resp 18; Pulse Ox 97% on R/A; Pain 0/10; mb3 20:37 BP 127 / 84; Pulse 77; Resp 16; Pulse Ox 98% on R/A; Pain 0/10; mb3 21:32 BP 125 / 87; Pulse 73; Resp 18; Pulse Ox 97% on R/A; mb3 23:32 BP 100 / 62; Pulse 72; Resp 16; Pulse Ox 99% on R/A; Pain 0/10; mb3 Mariia Coma Score: 18:30 Eye Response: spontaneous(4). Verbal Response: oriented(5). Motor Response: obeys mb3 commands(6). Total: 15. MDM: 19:04 Patient medically screened. rn 20:46 Differential diagnosis: seizure. Data reviewed: vital signs, nurses notes, lab test rn result(s), EKG, radiologic studies, CT scan, and as a result, I will discharge patient. Counseling: I had a detailed discussion with the patient and/or guardian regarding: the historical points, exam findings, and any diagnostic results supporting the discharge/admit diagnosis, lab results, radiology results, the need for outpatient follow up, to return to the emergency department if symptoms worsen or persist or if there are any questions or concerns that arise at home. Response to treatment: the patient's symptoms have markedly improved after treatment, the patient is now symptom free, patient is well hydrated. and as a result, I will discharge patient. Special discussion: I discussed with the patient/guardian in detail that at this point there is no indication for admission to the hospital. It is understood, however, that if the symptoms persist or worsen the patient needs to return immediately for re-evaluation. 20:47 ED course: Pt states just filled his dilantin prescription. rn 10/28 19:10 Order name: CBC with Diff rn 10/28 19:10 Order name: Basic Metabolic Panel; Complete Time: 20:45 rn 10/28 19:10 Order name: ETOH Level; Complete Time: 20:45 rn 10/28 19:10 Order name: Dilantin; Complete Time: 20:45 rn 10/28 22:13 Order name: Manual Differential EDFL 10/28 19:10 Order name: IV Start; Complete Time: 20:01 rn 10/28 19:10 Order name: CT Head Brain wo Cont; Complete Time: 19:53 rn 10/28 19:15 Order name: EKG - Nurse/Tech; Complete Time: 19:24 rn Administered Medications: 19:55 Drug: Banana Bag - (NS 0.9% 1000 ml, foLIC Acid 1 mg, Thiamine 100 mg, Multivitamin 1 mb3 amp) Route: IV; Rate: calculated rate; Site: right antecubital; 21:31 Follow up: Response: No adverse reaction; IV Status: Completed infusion; IV Intake: mb3 1000ml 23:45 Follow up: Response: No adverse reaction mb3 21:45 Drug: Phenytoin 1 grams Route: IVPB; Site: right antecubital; mb3 23:45 Follow up: Response: No adverse reaction; IV Status: Completed infusion; IV Intake: mb3 250ml Disposition: 10/28/17 20:46 Discharged to Home. Impression: Epilepsy and recurrent seizures, Alcohol abuse with intoxication. - Condition is Stable. - Discharge Instructions: Alcohol Intoxication, Seizure, Adult. - Medication Reconciliation Form, Thank You Letter, Antibiotic Education, Prescription Opioid Use form. - Follow up: Private Physician; When: As needed; Reason: Recheck today's complaints, Re-evaluation by your physician. - Problem is new. - Symptoms have improved. Signatures: Dispatcher [employer] [facility] Kaiser Marie MD MD rn Calderon, Audri RN RN aa5 Irwin Monson RN RN mb3 Corrections: (The following items were deleted from the chart) 22:14 20:26 CBC Smear Scan ordered. [facility] 23:46 20:46 10/28/2017 20:46 Discharged to Home. Impression: Epilepsy and recurrent seizures; mb3 Alcohol abuse with intoxication. Condition is Stable. Forms are Medication Reconciliation Form, Thank You Letter, Antibiotic Education, Prescription Opioid Use. Follow up: Private Physician; When: As needed; Reason: Recheck today's complaints, Re-evaluation by your physician. Problem is new. Symptoms have improved. rn
[2017-10-28] MEDS ORDERED: NA CHLORIDE 0.9% 250 ML ONE (21:50)
[2017-10-28 22:17] LABS: Platelet Estimate DECR
[2017-10-28 22:18] LABS: Blood Morphology Comment NOT SEEN (NOT SEEN)
[2017-10-28 23:50] VITALS: TEMP 98.2
[2017-10-28 23:55] VITALS: BP 100/62; O2SAT 99
== END 2017-10-28 23:46 | disposition home or self-care (01) ==
LOC: ER 18:12
DX: F10.129 Alcohol abuse with intoxication, unspecified (principal); F31.9 Bipolar disorder, unspecified; G20 Parkinson's disease; Z88.6 Allergy status to analgesic agent
CPT/HCPCS: 36415; 70450; 80048; 80185; 80320; 85025; 96365; 96366; 96367; 99284; J1165; J3411; J7030

== ENCOUNTER 2017-11-02 20:10 | Emergency (ER) | payer SELFPAY ==
[2017-11-02] MEDS ORDERED: NA CHLORIDE 0.9% 1,000 ML ONE (20:27)
[2017-11-02] MEDS ORDERED: THIAMINE 200 MG/2 ML INJ ONE (20:27)
[2017-11-02] MEDS ORDERED: FOLIC ACID 5 MG/ML VIAL ONE (20:28)
[2017-11-02] MEDS ORDERED: MULTIVITAMINS 10 ML VIAL (INJ) IV ONE (20:28)
[2017-11-02 21:07] LABS: Protime INR 0.97
[2017-11-02 21:10] LABS: Absolute Lymphocytes (CBC) 0.9 K/uL (0.7-4.9); Absolute Monocytes 0.3 K/uL (0.1-1.3); Basophils % 2.6 % (0-1.3); Eosinophils % 2.3 % (0-4.4); MCH 30.3 pg (27.0-35.0); MCV 90.9 fL (80-100); MPV 7.9 fL (7.6-11.3); Monocytes % 13.9 % (3.3-12.3); RBC Red Blood Cell Count 3.74 M/uL (4.33-5.43)
[2017-11-02 21:12] LABS: Bicarbonate 25 mEq/L (21-31); Glucose Level 131 mg/dL (65-120); Potassium 3.4 mEq/L (3.6-5.0); Sodium Level 138 mEq/L (135-145)
[2017-11-02 21:26] LABS: ALT/SGPT 123 IU/L (10-60); Albumin 4.2 g/dL (3.2-5.5); Alkaline Phosphatase 187 IU/L (42-121); BUN Blood Urea Nitrogen 7 mg/dL (6-20); Bilirubin Direct 0.3 mg/dL (0-0.2); Bilirubin Total 0.9 mg/dL (0.3-1.2); Protein, Total 7.6 g/dL (6.0-8.3)
[2017-11-02 21:45] LABS: Blood Morphology Comment NOT SEEN (NOT SEEN); Platelet Estimate DECR; Urine White Blood Cell Casts OK
[2017-11-02 21:48] LABS: Alcohol Serum/Plasma 432 mg/dl; Salicylates Level < 4.0 mg/dl (<30)
[2017-11-02 21:52] LABS: AST/SGOT 459 IU/L (10-42)
[2017-11-02 22:52] LABS: Barbiturates NEGATIVE; Benzodiazepines NEGATIVE; Cocaine NEGATIVE; METHAMPHETAM NEGATIVE; Opiates NEGATIVE; Phencyclidine NEGATIVE; THC Cannibis NEGATIVE
[2017-11-02 23:48] LABS: Urine Blood TRACE (NEG); Urine Glucose NEGATIVE (NEG); Urine Protein NEGATIVE (NEG); Urine Specific Gravity 1.015 (1.005-1.030)
--- NOTE | 2017-11-03 06:05 | ER ---
Nurse's Notes [facility] Name: Walt Velazquez Age: 46 yrs Sex: Male : 1970 Arrival Date: 11/02/2017 Time: 20:11 Bed 13 Private MD: Diagnosis: Alcohol abuse with intoxication Presentation: 11/02 20:13 Presenting complaint: EMS states: "Patient was found in front yard where he states "I bs1 had a seizure and passed out and I may have hit my head on a truck." Unknown of time and duration. Vitals wnl. Transition of care: patient was not received from another setting of care. Onset of symptoms is unknown. Initial Sepsis Screen: Does the patient meet any 2 criteria? No. Patient's initial sepsis screen is negative. Does the patient have a suspected source of infection? No. Patient's initial sepsis screen is negative. Care prior to arrival: None. 20:13 Method Of Arrival: EMS: [facility] bs1 20:13 Acuity: LATASHA 3 bs1 Triage Assessment: 21:00 General: Appears in no apparent distress. uncomfortable. bs1 Historical: - Allergies: 20:17 Trazodone; bs1 - Home Meds: 20:17 Dilantin Oral 100 mg three times a day [Active]; Risperdal Oral once daily [Active]; bs1 Ritalin Oral [Active]; - PMHx: 20:17 Alcoholism; Bipolar disorder; pancreatic cancer; Parkinsons; Seizures; bs1 - PSHx: 20:17 Unable to obtain; bs1 - Immunization history:: Adult Immunizations unknown. - Social history:: Smoking status: Patient uses tobacco products, denies chronic smoking, but will smoke occasionally. Screenin:52 Abuse screen: Denies threats or abuse. Denies injuries from another. Nutritional bs1 screening: No deficits noted. Tuberculosis screening: No symptoms or risk factors identified. Fall Risk None identified. Assessment: 20:15 General: Appears in no apparent distress. uncomfortable, Behavior is calm, cooperative, bs1 Smells of alcohol. Pain: Denies pain. Neuro: Level of Consciousness is awake, alert, obeys commands, Oriented to person, place, situation, Stage Settings Painter are equal bilaterally Reports headache Denies blurred vision difficulty swallowing, numbness photophobia Seizure activity reported prior to arrival. Per EMS, unwitnessed. Patient reports having a seizure and passing out in front yard. Cardiovascular: Denies chest pain, palpitations, shortness of breath, Heart tones S1 S2 present. Cardiovascular: Capillary refill < 3 seconds Patient's skin is warm and dry. Respiratory: Airway is patent Trachea midline Respiratory effort is even, unlabored, Respiratory pattern is regular, symmetrical, Breath sounds are clear bilaterally. GI: No deficits noted. No signs and/or symptoms were reported involving the gastrointestinal system. Abdomen is flat. : No deficits noted. No signs and/or symptoms were reported regarding the genitourinary system. EENT: No deficits noted. No signs and/or symptoms were reported regarding the EENT system. Derm: Skin is intact, Skin is pink, warm \\T\\ dry. Musculoskeletal: Circulation, motion, and sensation intact. Capillary refill < 3 seconds, Range of motion: intact in all extremities. 21:30 Reassessment: No signs of seizure activity noted. No apparent distress. Encouraged bs1 patient to urinate for Urine Sample/Drug screen. 23:30 Reassessment: No changes from previously documented assessment. Patient and/or family bs1 updated on plan of care and expected duration. Pain level reassessed. Patient is alert, oriented x 3, equal unlabored respirations, skin warm/dry/pink. 11/03 01:30 Reassessment: Patient appears in no apparent distress at this time. No changes from bs1 previously documented assessment. Patient and/or family updated on plan of care and expected duration. Pain level reassessed. Patient is alert, oriented x 3, equal unlabored respirations, skin warm/dry/pink. Patient sleeping. 03:30 Reassessment: Patient appears in no apparent distress at this time. Patient and/or bs1 family updated on plan of care and expected duration. Pain level reassessed. Patient is alert, oriented x 3, equal unlabored respirations, skin warm/dry/pink. 04:36 Reassessment: ETOH repeat done. Pending results. Patient pulled IV out. bs1 05:15 Reassessment: Patient appears in no apparent distress at this time. No changes from bs1 previously documented assessment. Patient and/or family updated on plan of care and expected duration. Pain level reassessed. Patient is alert, oriented x 3, equal unlabored respirations, skin warm/dry/pink. 06:17 Reassessment: Patient and/or family updated on plan of care and expected duration. Pain bs1 level reassessed. Patient is alert, oriented x 3, equal unlabored respirations, skin warm/dry/pink. Patient states symptoms have improved. c/o headache, patient given tylenol. Vital Signs: 11/02 20:18 BP 120 / 84; Pulse 82; Resp 16; Temp 98.4(O); Pulse Ox 96% on R/A; Weight 63.5 kg; bs1 Height 5 ft. 3 in. (160.02 cm); Pain 5/10; 21:15 BP 108 / 73; Pulse 75; Resp 15; Pulse Ox 99% on R/A; bs1 22:15 BP 108 / 81; Pulse 80; Resp 16; Pulse Ox 98% on R/A; bs1 22:45 BP 114 / 75; Pulse 70; Resp 16; Pulse Ox 99% on R/A; Pain 0/10; bs1 23:45 BP 100 / 75; Pulse 67; Resp 15; Pulse Ox 99% on R/A; bs1 11/03 00:45 BP 102 / 75; Pulse 67; Resp 16; Pulse Ox 100% on R/A; Pain 0/10; bs1 01:45 BP 113 / 79; Pulse 68; Resp 15; Pulse Ox 100% on R/A; bs1 02:15 BP 121 / 71; Pulse 65; Resp 15; Pulse Ox 100% on R/A; bs1 03:48 BP 105 / 61; Pulse 70; Resp 16; Pulse Ox 99% on R/A; Pain 9/10; bs1 04:47 BP 118 / 81; Pulse 83; Resp 14; Pulse Ox 98% on R/A; bs1 05:45 BP 119 / 75; Pulse 81; Resp 16; Temp 98(O); Pulse Ox 98% on R/A; bs1 11/02 20:18 Body Mass Index 24.80 (63.50 kg, 160.02 cm) bs1 Morrison Coma Score: 11/02 21:00 Eye Response: spontaneous(4). Verbal Response: oriented(5). Motor Response: obeys bs1 commands(6). Total: 15. ED Course: 20:11 Patient arrived in ED. bs1 20:12 Gloria Theodore RN is Primary Nurse. bs1 20:15 Triage completed. bs1 20:19 Chang Sinha MD is Attending Physician. tw4 20:45 Inserted saline lock: 20 gauge in right forearm, using aseptic technique. bs1 21:00 Arm band placed on placed. bs1 21:00 Seizure precautions initiated. bs1 21:00 Pulse ox on. NIBP on. Warm blanket given. bs1 21:51 Notified ED physician of a critical lab result(s). AST 459. bs1 22:54 No provider procedures requiring assistance completed. bs1 11/03 04:36 Repeat lab(s) drawn. by ks, sent to lab. Repeat ETOH level. bs1 06:17 IV discontinued. bs1 Administered Medications: 11/02 20:49 Drug: Banana Bag - (NS 0.9% 1000 ml, foLIC Acid 1 mg, Thiamine 100 mg, Multivitamin 1 bs1 amp) Route: IV; Rate: calculated rate; Site: right antecubital; 11/03 06:07 Follow up: IV Status: Completed infusion bs1 06:16 Drug: Tylenol 500 mg Route: PO; bs1 06:16 Follow up: Response: No adverse reaction bs1 Outcome: 06:04 Discharge ordered by . tw4 06:16 Discharged to front lobby, patient given transit ticket to ride bus bs1 06:16 Condition: stable 06:16 Discharge instructions given to patient, Instructed on discharge instructions, follow up and referral plans. Demonstrated understanding of instructions, follow-up care. 06:18 Patient left the ED. bs1 Signatures: Gloria Theodore RN RN bs1 Chang Sinha MD MD tw4 Corrections: (The following items were deleted from the chart) 11/02 22:52 20:18 BP 120 / 84; Pulse 82bpm; Resp 16bpm; Pulse Ox 96% RA; 63.5 kg; Height 5 ft. 3 bs1 in.; BMI: 24.8; Pain 5/10; bs1
--- NOTE | 2017-11-03 06:05 | EDPHYS ---
Physician Documentation [facility] Name: Walt Velazquez Age: 46 yrs Sex: Male : 1970 Arrival Date: 11/02/2017 Time: 20:11 Bed 13 Private MD: JANA Physician Chang Sinha Historical: - Allergies: 11/02 20:17 Trazodone; bs1 - Home Meds: 20:17 Dilantin Oral 100 mg three times a day [Active]; Risperdal Oral once daily [Active]; bs1 Ritalin Oral [Active]; - PMHx: 20:17 Alcoholism; Bipolar disorder; pancreatic cancer; Parkinsons; Seizures; bs1 - PSHx: 20:17 Unable to obtain; bs1 - Immunization history:: Adult Immunizations unknown. - Social history:: Smoking status: Patient uses tobacco products, denies chronic smoking, but will smoke occasionally. Vital Signs: 20:18 BP 120 / 84; Pulse 82; Resp 16; Temp 98.4(O); Pulse Ox 96% on R/A; Weight 63.5 kg; bs1 Height 5 ft. 3 in. (160.02 cm); Pain 5/10; 21:15 BP 108 / 73; Pulse 75; Resp 15; Pulse Ox 99% on R/A; bs1 22:15 BP 108 / 81; Pulse 80; Resp 16; Pulse Ox 98% on R/A; bs1 22:45 BP 114 / 75; Pulse 70; Resp 16; Pulse Ox 99% on R/A; Pain 0/10; bs1 23:45 BP 100 / 75; Pulse 67; Resp 15; Pulse Ox 99% on R/A; bs1 05 00:45 BP 102 / 75; Pulse 67; Resp 16; Pulse Ox 100% on R/A; Pain 0/10; bs1 01:45 BP 113 / 79; Pulse 68; Resp 15; Pulse Ox 100% on R/A; bs1 02:15 BP 121 / 71; Pulse 65; Resp 15; Pulse Ox 100% on R/A; bs1 03:48 BP 105 / 61; Pulse 70; Resp 16; Pulse Ox 99% on R/A; Pain 9/10; bs1 04:47 BP 118 / 81; Pulse 83; Resp 14; Pulse Ox 98% on R/A; bs1 05:45 BP 119 / 75; Pulse 81; Resp 16; Temp 98(O); Pulse Ox 98% on R/A; 1 11/02 20:18 Body Mass Index 24.80 (63.50 kg, 160.02 cm) bs1 Mariia Coma Score: 11/02 21:00 Eye Response: spontaneous(4). Verbal Response: oriented(5). Motor Response: obeys bs1 commands(6). Total: 15. MDM: 20:19 Patient medically screened. 11/02 20:16 Order name: Acetaminophen; Complete Time: 00:49 [facility] 11/02 20:16 Order name: Basic Metabolic Panel; Complete Time: 00:49 [facility] 11/02 20:16 Order name: CBC with Diff; Complete Time: 00:49 [facility] 11/02 20:16 Order name: ETOH Level; Complete Time: 00:49 [facility] 11/02 20:16 Order name: Hepatic Function; Complete Time: 00:49 [facility] 11/02 20:16 Order name: PT-INR; Complete Time: 00:49 [facility] 11/02 20:16 Order name: Ptt, Activated; Complete Time: 00:49 [facility] 11/02 20:16 Order name: Salicylate; Complete Time: 00:49 [facility] 11/02 20:16 Order name: Urine Drug Screen; Complete Time: 00:49 [facility] 11/02 21:45 Order name: CBC Smear Scan; Complete Time: 00:49 [facility] 11/02 22:32 Order name: Urine Dipstick--Ancillary (enter results); Complete Time: 00:49 md 11/03 03:54 Order name: ETOH Level [facility] 11/02 20:16 Order name: EKG; Complete Time: 20:16 [facility] 11/02 20:16 Order name: EKG - Nurse/Tech; Complete Time: 22:10 [facility] 11/02 20:16 Order name: IV Saline Lock; Complete Time: 21:55 [facility] 11/02 20:16 Order name: Labs collected and sent; Complete Time: 22:10 [facility] 11/02 20:16 Order name: Urine Dipstick-Ancillary (obtain specimen); Complete Time: 22:26 tw4 Administered Medications: 20:49 Drug: Banana Bag - (NS 0.9% 1000 ml, foLIC Acid 1 mg, Thiamine 100 mg, Multivitamin 1 bs1 amp) Route: IV; Rate: calculated rate; Site: right antecubital; 11/03 06:07 Follow up: IV Status: Completed infusion bs1 06:16 Drug: Tylenol 500 mg Route: PO; bs1 06:16 Follow up: Response: No adverse reaction bs1 Disposition: 11/03/17 06:04 Discharged to Home. Impression: Alcohol abuse with intoxication. - Condition is Stable. - Discharge Instructions: Alcohol and Drug Addiction, Finding Treatment, Alcohol Intoxication, Alcohol Withdrawal, Alcohol Intoxication, [id number], Alcohol Abuse and Nutrition, How Much is Too Much Alcohol, [id number]. - Medication Reconciliation Form, Thank You Letter, Antibiotic Education, Prescription Opioid Use form. - Follow up: Private Physician; When: Upon discharge from the Emergency Department; Reason: Recheck today's complaints, Continuance of care, Re-evaluation by your physician. - Problem is new. - Symptoms have improved. Addendum: 11/20/2017 07:58 Addendum: HPI: Pt is 46 year old male well known to ED staff states that he had a t w4 seizure and may have fell and hit his head on his truck.. PT only complaining of mild headache. Denies chest pain , SOB fever chills. PT states that his last drink was yesterday. 08:01 Addendum: ROS: Constitutional: negative for fever chills, malaise Head: positive for t w4 injury ENT: negative for hearing loss, ear pain CV: negative for CP, palpitations, RIDDLE Resp: negative for SOB, RIDDLE, PND Abdomen: negative for ab pain , N/V/D Neuro: positive for seizure, negative for altered MS, weakness, paresthesias. Addendum: PE: General: well developed well nourished female HEENT: PERRLA, EOMI Neck: supple Resp: CTAB, equal BS CV: RRR, nl S1 S2 Abdomen: soft NT/ ND Neuro: awake alert and oriented time three. 08:07 Addendum: Ed course : pt rested comfortably on the stretcher during his ED stay. t w4 Received multivitamins and IVF .Discharged and told to followup with PCP and seek help for addiction alcohol. Signatures: Dispatcher [employer] EDMS Gloria Theodore, RN RN bs1 Chang Sinha MD MD tw4 Corrections: (The following items were deleted from the chart) 11/03 06:18 06:04 11/03/2017 06:04 Discharged to Home. Impression: Alcohol abuse with intoxication. bs1 Condition is Stable. Forms are Medication Reconciliation Form, Thank You Letter, Antibiotic Education, Prescription Opioid Use. Follow up: Private Physician; When: Upon discharge from the Emergency Department; Reason: Recheck today's complaints, Continuance of care, Re-evaluation by your physician. Problem is new. Symptoms have improved. tw4
[2017-11-03] MEDS ORDERED: ACETAMINOPHEN 500 MG TAB ONE (06:11)
--- NOTE | 2017-11-03 06:36 | EKG ---
Test Date: 2017-11-02 Test Time: 22:03:09 [employer]cher [employer]itter: EDUARDO MEASUREMENT RESULTS: Intervals: Rate: 79 [place]: 216 QRSD: 86 QT: 356 QTc: 408 [facility]: P: 49 [place]: 216 QRS: 61 T: -7 INTERPRETIVE STATEMENTS: Sinus rhythm with 1st degree AV block non specific T abnormality Abnormal ECG Compared to ECG 10/16/2017 11:49:17 First degree AV block now present Electronically Signed On 11-03-17 06:35:53 CDT by Barron Kumar
[2017-11-03 06:51] VITALS: O2SAT 98
[2017-11-03 06:52] VITALS: BP 119/75; TEMP 98
== END 2017-11-03 06:18 | disposition home or self-care (01) ==
LOC: ER 20:10
DX: F10.229 Alcohol dependence with intoxication, unspecified (principal); G40.909 Epilepsy, unspecified, not intractable, without status epilepticus; Z85.07 Personal history of malignant neoplasm of pancreas; G20 Parkinson's disease; Z72.0 Tobacco use; Z88.6 Allergy status to analgesic agent
CPT/HCPCS: 36415; 80048; 80076; 80307; 80320; 80329; 81003; 85025; 85610; 85730; 93005; 96365; 96366; 99284; J3411; J7030

== ENCOUNTER 2017-11-11 21:53 | Emergency (ER) | payer SELFPAY ==
[2017-11-11] MEDS ORDERED: levETIRAcetam 500 MG TAB ONE (22:33)
--- NOTE | 2017-11-11 23:33 | RAD REPORT ---
EXAM DESCRIPTION: RAD - Femur Right - 11/11/2017 11:24 pm CLINICAL HISTORY: Right leg pain FINDINGS: No fracture is seen. No bony abnormality is displayed. Vascular calcifications are noted
--- NOTE | 2017-11-11 23:35 | EDPHYS ---
Physician Documentation [facility] Name: Walt Velazquez Age: 46 yrs Sex: Male : 1970 Arrival Date: 11/11/2017 Time: 21:56 Bed 18 Private MD: None, None ED Physician Sulaiman Hawkins HPI: 11/11 22:05 This 46 yrs old Male presents to ER via EMS with complaints of Probable ps1 Seizure. 22:05 Pt with recurrent seizure that has been seen multiple times before in the past for ps1 same. Lasted for minutes. Currently on phenytoin. Additionally states that he has right leg pain and a bruise. He states that he has been limping. . Historical: - Allergies: 22:01 Trazodone; lk1 - PMHx: 22:01 Alcoholism; Bipolar disorder; pancreatic cancer; Parkinsons; Seizures; lk1 - PSHx: 22:01 Unable to obtain; lk1 - Immunization history:: Adult Immunizations up to date. - Social history:: Smoking status: Patient/guardian denies using tobacco, Patient uses alcohol. - Ebola Screening: : Patient negative for fever greater than or equal to 101.5 degrees Fahrenheit, and additional compatible Ebola Virus Disease symptoms Patient denies exposure to infectious person Patient denies travel to an Ebola-affected area in the 21 days before illness onset No symptoms or risks identified at this time. ROS: 22:05 Constitutional: Negative for fever, chills, and weight loss, Eyes: Negative for injury, ps1 pain, redness, and discharge, Cardiovascular: Negative for chest pain, palpitations, and edema, Respiratory: Negative for shortness of breath, cough, wheezing, and pleuritic chest pain, Abdomen/GI: Negative for abdominal pain, nausea, vomiting, diarrhea, and constipation. 22:05 MS/extremity: Positive for ecchymosis, tenderness, right leg, lateral aspect of thigh. 22:05 Neuro: Positive for seizure activity. Exam: 23:32 Constitutional: This is a well developed, well nourished patient who is awake, alert, ps1 and in no acute distress. Head/Face: Normocephalic, atraumatic. Eyes: Pupils equal round and reactive to light, extra-ocular motions intact. Lids and lashes normal. Conjunctiva and sclera are non-icteric and not injected. Chest/axilla: Normal chest wall appearance and motion. Nontender with no deformity. No lesions are appreciated. Cardiovascular: Regular rate and rhythm. No gallops, murmurs, or rubs. Normal PMI, no JVD. No pulse deficits. Respiratory: Lungs have equal breath sounds bilaterally, clear to auscultation and percussion. No rales, rhonchi or wheezes noted. No increased work of breathing, no retractions or nasal flaring. Abdomen/GI: Soft, non-tender, with normal bowel sounds. No distension or tympany. No guarding or rebound. No evidence of tenderness throughout. 23:32 Musculoskeletal/extremity: Extremities: grossly normal except: noted in the right leg: contusion. Vital Signs: 22:02 BP 111 / 74; Pulse 75; Resp 12; Temp 98.7(O); Pulse Ox 97% on R/A; Weight 63.5 kg (R); lk1 Height 5 ft. 3 in. (160.02 cm) (R); Pain 8/10; 11/12 00:00 BP 102 / 70; Pulse 69; Resp 14; Pulse Ox 97% on R/A; lk1 11/11 22:02 Body Mass Index 24.80 (63.50 kg, 160.02 cm) lk1 Mariia Coma Score: 11/11 22:01 Eye Response: spontaneous(4). Verbal Response: oriented(5). Motor Response: obeys lk1 commands(6). Total: 15. MDM: 22:27 Patient medically screened. ps1 23:32 Data reviewed: vital signs, nurses notes, radiologic studies. ED course: pt is non ps1 compliant with seizure medication phenytoin. Will load him with keppra and have him start taking the medication and follow up with the neurologist. . 11/11 22:27 Order name: Femur Right XRAY; Complete Time: 23:35 ps1 Administered Medications: 22:30 Drug: Keppra 1500 mg Route: PO; lk1 23:15 Follow up: Response: No adverse reaction lk1 Disposition: 11/11/17 23:34 Discharged to Home. Impression: Epilepsy and recurrent seizures. - Condition is Stable. - Discharge Instructions: Seizure, Adult. - Prescriptions for Keppra 500 mg Oral Tablet - take 1 tablet by ORAL route every 12 hours; 20 tablet. - Medication Reconciliation Form, Thank You Letter, Antibiotic Education, Prescription Opioid Use form. - Follow up: Emergency Department; When: As needed; Reason: Worsening of condition. Follow up: Private Physician; When: As needed; Reason: Recheck today's complaints, Continuance of care, Re-evaluation by your physician. - Problem is an ongoing problem. - Symptoms are unchanged. Signatures: Dispatcher [employer] EDAmanda Franklin RN RN lk1 Sulaiman Hawkins MD MD ps1 Corrections: (The following items were deleted from the chart) 11/12 00:46 11/11 23:34 11/11/2017 23:34 Discharged to Home. Impression: Epilepsy and recurrent lk1 seizures. Condition is Stable. Forms are Medication Reconciliation Form, Thank You Letter, Antibiotic Education, Prescription Opioid Use. Follow up: Emergency Department; When: As needed; Reason: Worsening of condition. Follow up: Private Physician; When: As needed; Reason: Recheck today's complaints, Continuance of care, Re-evaluation by your physician. Problem is an ongoing problem. Symptoms are unchanged. ps1
--- NOTE | 2017-11-11 23:35 | ER ---
Nurse's Notes [facility] Name: Walt Velazquez Age: 46 yrs Sex: Male : 1970 Arrival Date: 11/11/2017 Time: 21:56 Bed 18 Private MD: None, None Diagnosis: Epilepsy and recurrent seizures Presentation: 11/11 21:59 Presenting complaint: Patient states: "I have been having seizures today." complains of lk1 right hip and right knee pain. Transition of care: patient was not received from another setting of care. Onset of symptoms is unknown. Risk Assessment: Do you want to hurt yourself or someone else? Patient reports no desire to harm self or others. Initial Sepsis Screen: Does the patient meet any 2 criteria? No. Patient's initial sepsis screen is negative. Does the patient have a suspected source of infection? No. Patient's initial sepsis screen is negative. Care prior to arrival: None. 21:59 Method Of Arrival: EMS: [facility] lk 21:59 Acuity: LATASHA 3 lk1 Triage Assessment: 22:01 General: Appears in no apparent distress. Behavior is calm, cooperative, appropriate lk1 for age. Pain: Complains of pain in right hip and right knee Pain currently is 8 out of 10 on a pain scale. EENT: No signs and/or symptoms were reported regarding the EENT system. Neuro: Level of Consciousness is awake, alert, obeys commands, Oriented to person, place, time, situation, Speech is normal, Facial symmetry appears normal, Pupils are PERRLA. Cardiovascular: Capillary refill is brisk Patient's skin is warm and dry. Respiratory: Airway is patent Respiratory effort is even, unlabored, Respiratory pattern is regular, symmetrical. GI: Abdomen is non-distended. : No signs and/or symptoms were reported regarding the genitourinary system. Derm: No signs and/or symptoms reported regarding the dermatologic system. Musculoskeletal: No signs and/or symptoms reported regarding the musculoskeletal system. Historical: - Allergies: 22:01 Trazodone; lk1 - PMHx: 22:01 Alcoholism; Bipolar disorder; pancreatic cancer; Parkinsons; Seizures; lk1 - PSHx: 22: Unable to obtain; lk1 - Immunization history:: Adult Immunizations up to date. - Social history:: Smoking status: Patient/guardian denies using tobacco, Patient uses alcohol. - Ebola Screening: : Patient negative for fever greater than or equal to 101.5 degrees Fahrenheit, and additional compatible Ebola Virus Disease symptoms Patient denies exposure to infectious person Patient denies travel to an Ebola-affected area in the 21 days before illness onset No symptoms or risks identified at this time. Screenin:05 Abuse screen: Denies threats or abuse. Denies injuries from another. Nutritional lk1 screening: No deficits noted. Tuberculosis screening: No symptoms or risk factors identified. Fall Risk Total Cadena Fall Scale indicates High Risk Score (45 or more points). Fall prevention measures have been instituted. Side Rails Up X 2 Placed Close to Nursing Station Frequent Obs/Assessments Occuring As available patient and family educated on Fall Prevention Program and Strategies. Assessment: 23:00 Reassessment: Patient appears in no apparent distress at this time. Patient and/or lk1 family updated on plan of care and expected duration. Pain level reassessed. Patient is alert, oriented x 3, equal unlabored respirations, skin warm/dry/pink. Patient states feeling better. Patient states symptoms have improved. Vital Signs: 22:02 BP 111 / 74; Pulse 75; Resp 12; Temp 98.7(O); Pulse Ox 97% on R/A; Weight 63.5 kg (R); lk1 Height 5 ft. 3 in. (160.02 cm) (R); Pain 8/10; 11/12 00:00 BP 102 / 70; Pulse 69; Resp 14; Pulse Ox 97% on R/A; lk1 11/11 22:02 Body Mass Index 24.80 (63.50 kg, 160.02 cm) lk1 [place] Coma Score: 11/11 22:01 Eye Response: spontaneous(4). Verbal Response: oriented(5). Motor Response: obeys lk1 commands(6). Total: 15. ED Course: 21:56 Patient arrived in ED. fc 21:56 None, None is Private Physician. fc 21:58 Amanda Farrar, ROBERTO is Primary Nurse. lk1 22:00 Triage completed. lk1 22:02 Sulaiman Hawkins MD is Attending Physician. ps1 22:04 Arm band placed on right wrist. lk1 23:23 X-ray completed. Portable x-ray completed in exam room. Patient tolerated procedure kw poorly. 23:25 Femur Right XRAY In Process Unspecified. EDMS 11/12 00:42 Patient has correct armband on for positive identification. Placed in gown. Bed in low lk1 position. Call light in reach. Side rails up X2. 00:42 No provider procedures requiring assistance completed. Patient did not have IV access lk1 during this emergency room visit. 00:45 Seizure precautions initiated. lk1 Administered Medications: 11/11 22:30 Drug: Keppra 1500 mg Route: PO; lk1 23:15 Follow up: Response: No adverse reaction lk1 Outcome: 23:34 Discharge ordered by . ps1 11/12 00:43 Discharged to home via wheelchair. lk1 Condition: improved Discharge instructions given to patient, Instructed on discharge instructions, follow up and referral plans. medication usage, safety practices, Demonstrated understanding of instructions, follow-up care, medications, Prescriptions given X 1. 00:46 Patient left the ED. lk1 Signatures: Dispatcher [employer] EDMS Sarah Beth Luu, RN RN Yamilka Orta Leah, RN RN lk1 Sulaiman Hawkins MD MD ps1
[2017-11-12 00:52] VITALS: TEMP 98.7; O2SAT 97
[2017-11-12 00:53] VITALS: BP 102/70
== END 2017-11-12 00:46 | disposition home or self-care (01) ==
LOC: ER 21:53
DX: G40.909 Epilepsy, unspecified, not intractable, without status epilepticus (principal); Z88.8 Allergy status to other drugs, medicaments and biological substances
CPT/HCPCS: 99284

== ENCOUNTER 2017-11-15 01:18 | Emergency (ER) | payer SELFPAY ==
[2017-11-15] MEDS ORDERED: THIAMINE 200 MG/2 ML INJ ONE ×2 (02:08→03:53)
[2017-11-15] MEDS ORDERED: NA CHLORIDE 0.9% 1,000 ML ONE ×2 (02:08→03:53)
[2017-11-15 02:47] LABS: Protime INR 0.97
[2017-11-15 02:51] LABS: Absolute Lymphocytes (CBC) 1.1 K/uL (0.7-4.9); Absolute Monocytes 0.3 K/uL (0.1-1.3); Absolute Neutrophil 0.9 K/uL (1.8-8.0); Basophils % 2.6 % (0-1.3); Eosinophils % 1.3 % (0-4.4); Hematocrit 36.3 % (39.6-49.0); Lymphocytes % 47.6 % (15.3-44.8); MCH 30.5 pg (27.0-35.0); MCV 93.2 fL (80-100); MPV 7.5 fL (7.6-11.3); Monocytes % 11.9 % (3.3-12.3)
[2017-11-15 02:52] LABS: Bicarbonate 28 mEq/L (21-31); Glucose Level 138 mg/dL (65-120); Potassium 3.2 mEq/L (3.6-5.0); Sodium Level 140 mEq/L (135-145)
[2017-11-15 02:59] LABS: ALT/SGPT 59 IU/L (10-60); AST/SGOT 158 IU/L (10-42); Albumin 4.2 g/dL (3.2-5.5); Alcohol Serum/Plasma 508 mg/dl; Alkaline Phosphatase 152 IU/L (42-121); BUN Blood Urea Nitrogen 5 mg/dL (6-20); Bilirubin Direct 0.3 mg/dL (0-0.2); Bilirubin Total 0.7 mg/dL (0.3-1.2); Protein, Total 7.7 g/dL (6.0-8.3)
[2017-11-15] MEDS ORDERED: NA CHLORIDE 0.9% 100 ML IV ONE (03:53)
[2017-11-15] MEDS ORDERED: POTASSIUM 25 MEQ EFFERV TAB ONE (03:53)
[2017-11-15] MEDS ORDERED: MULTIVITAMINS 10 ML VIAL (INJ) IV ONE (03:54)
[2017-11-15] MEDS ORDERED: FOLIC ACID 5 MG/ML VIAL ONE (03:54)
[2017-11-15] MEDS ORDERED: FOSPHENYTOIN PE 500 MG/10 ML VIAL ONE (03:56)
[2017-11-15 04:02] LABS: Anisocytosis SLIGHT; Blood Morphology Comment NOTED (NOT SEEN); Platelet Estimate DECR; Urine White Blood Cell Casts OK
--- NOTE | 2017-11-15 04:28 | EDPHYS ---
Physician Documentation [facility] Name: Walt Velazquez Age: 46 yrs Sex: Male : 1970 Arrival Date: 11/15/2017 Time: 01:20 Bed 13 Private MD: None, None ED Physician Deandre Mckeon HPI: 11/15 01:55 This 46 yrs old Male presents to ER via Unassigned with complaints of etoh and bridgette seizure. 01:55 The patient presents with dizziness, generalized weakness. Onset: The symptoms/episode bridgette began/occurred just prior to arrival. Context: occurred at home, on a street or driveway. Modifying factors: The symptoms are alleviated by nothing, the symptoms are aggravated by nothing. Associated signs and symptoms: The patient has no apparent associated signs or symptoms. The patient presents after having a single isolated seizure, that lasted an unknown period of time. Character of seizure(s): Loss of consciousness: the patient did not lose consciousness, Motor activity: generalized, Incontinence: none, Apnea: the patient did not experience apnea. Seizure onset: just prior to arrival. Context: the seizure(s) was witnessed, by no one. Historical: - Allergies: 05:12 Trazodone; ea - Home Meds: 05:12 Dilantin Oral 100 mg three times a day [Active]; Risperdal Oral once daily [Active]; ea Ritalin Oral [Active]; - PMHx: 05:12 Alcoholism; pancreatic cancer; Bipolar disorder; Parkinsons; Seizures; ea - PSHx: 05:12 Unable to obtain; ea - Immunization history:: Adult Immunizations up to date. - Social history:: Smoking status: Patient uses tobacco products, smokes one pack cigarettes per day. - Family history:: not pertinent. - Ebola Screening: : No symptoms or risks identified at this time. ROS: 01:55 Constitutional: Negative for fever, chills, and weight loss, Eyes: Negative for injury, bridgette pain, redness, and discharge, ENT: Negative for injury, pain, and discharge, Neck: Negative for injury, pain, and swelling, Cardiovascular: Negative for chest pain, palpitations, and edema, Respiratory: Negative for shortness of breath, cough, wheezing, and pleuritic chest pain, Abdomen/GI: Negative for abdominal pain, nausea, vomiting, diarrhea, and constipation, Back: Negative for injury and pain, : Negative for injury, bleeding, discharge, and swelling, MS/Extremity: Negative for injury and deformity, Skin: Negative for injury, rash, and discoloration, Psych: Negative for depression, anxiety, suicide ideation, homicidal ideation, and hallucinations, Allergy/Immunology: Negative for hives, rash, and allergies, Endocrine: Negative for neck swelling, polydipsia, polyuria, polyphagia, and marked weight changes. :55 Neuro: Positive for seizure activity. Exam: :55 Constitutional: This is a well developed, well nourished patient who is awake, alert, bridgette and in no acute distress. Head/Face: Normocephalic, atraumatic. Eyes: Pupils equal round and reactive to light, extra-ocular motions intact. Lids and lashes normal. Conjunctiva and sclera are non-icteric and not injected. Cornea within normal limits. Periorbital areas with no swelling, redness, or edema. ENT: Nares patent. No nasal discharge, no septal abnormalities noted. Tympanic membranes are normal and external auditory canals are clear. Oropharynx with no redness, swelling, or masses, exudates, or evidence of obstruction, uvula midline. Mucous membranes moist. Neck: Trachea midline, no thyromegaly or masses palpated, and no cervical lymphadenopathy. Supple, full range of motion without nuchal rigidity, or vertebral point tenderness. No Meningismus. Chest/axilla: Normal chest wall appearance and motion. Nontender with no deformity. No lesions are appreciated. Cardiovascular: Regular rate and rhythm with a normal S1 and S2. No gallops, murmurs, or rubs. Normal PMI, no JVD. No pulse deficits. Respiratory: Lungs have equal breath sounds bilaterally, clear to auscultation and percussion. No rales, rhonchi or wheezes noted. No increased work of breathing, no retractions or nasal flaring. Abdomen/GI: Soft, non-tender, with normal bowel sounds. No distension or tympany. No guarding or rebound. No evidence of tenderness throughout. Back: No spinal tenderness. No costovertebral tenderness. Full range of motion. Male : Normal genitalia with no discharge or lesions. Skin: Warm, dry with normal turgor. Normal color with no rashes, no lesions, and no evidence of cellulitis. MS/ Extremity: Pulses equal, no cyanosis. Neurovascular intact. Full, normal range of motion. Psych: Awake, alert, with orientation to person, place and time. Behavior, mood, and affect are within normal limits. 01:55 Neuro: Orientation: appropriate for stated age, no acute changes, Mentation: slow to respond, Memory: is normal, appropriate for stated age, no acute changes, Cerebellar function: unable to test, Motor: moves all fours, Gait: not tested. Babinski testing is normal. Vital Signs: 01:30 BP 117 / 85; Pulse 71; Resp 18; Temp 98.7(O); Pulse Ox 99% ; Weight 54.43 kg; Height 5 ea ft. (152.40 cm); Pain 7/10; 02:00 BP 106 / 78; Pulse 60; Resp 18; Pulse Ox 98% ; ea 03:30 BP 121 / 77; Pulse 80; Resp 16; Pulse Ox 97% on R/A; ea 04:30 BP 128 / 76; Pulse 73; Resp 16 S; Pulse Ox 97% on R/A; Pain 0/10; ea 05:51 BP 118 / 70; Pulse 70; Resp 18; Pulse Ox 99% ; ea 06:58 BP 120 / 68; Pulse 68; Resp 18 S; Temp 98.3; Pulse Ox 99% ; ea 01:30 Body Mass Index 23.44 (54.43 kg, 152.40 cm) ea MDM: 01:50 Patient medically screened. [facility] 01:55 Data reviewed: vital signs, nurses notes, lab test result(s), EKG, radiologic studies, bridgette plain films. 11/15 01:52 Order name: Acetaminophen; Complete Time: 03:12 [facility] 11/15 01:52 Order name: Basic Metabolic Panel; Complete Time: 03:12 [facility] 11/15 01:52 Order name: CBC with Diff; Complete Time: 04:26 [facility] 11/15 01:52 Order name: ETOH Level; Complete Time: 03:12 [facility] 11/15 01:52 Order name: Hepatic Function; Complete Time: 03:12 [facility] 11/15 01:52 Order name: PT-INR; Complete Time: 03:12 [facility] 11/15 01:52 Order name: Ptt, Activated; Complete Time: 03:12 [facility] 11/15 01:52 Order name: Salicylate; Complete Time: 03:12 [facility] 11/15 01:52 Order name: Urine Drug Screen [facility] 11/15 01:55 Order name: Dilantin [facility] 11/15 01:55 Order name: Phenytoin (Dilantin) Level; Complete Time: 03:12 [facility] 11/15 03:02 Order name: CBC Smear Scan; Complete Time: 04:26 [facility] 11/15 01:52 Order name: EKG; Complete Time: 01:53 [facility] 11/15 01:52 Order name: EKG - Nurse/Tech; Complete Time: 04:46 [facility] 11/15 01:52 Order name: IV Saline Lock; Complete Time: 05:07 [facility] 11/15 01:52 Order name: Labs collected and sent; Complete Time: 04:46 [facility] 11/15 01:52 Order name: Urine Dipstick-Ancillary (obtain specimen); Complete Time: 04:46 [facility] Administered Medications: 02:00 Drug: NS 0.9% 1000 ml Route: IV; Rate: 1 bolus; Site: right antecubital; ea 03:30 Follow up: Response: No adverse reaction; IV Status: Completed infusion; IV Intake: ea 1000ml 02:53 Drug: Thiamine 100 mg Route: IV; Rate: bolus; Site: right antecubital; ea 03:30 Follow up: Response: No adverse reaction; IV Status: Completed infusion ea 03:30 Drug: Fosphenytoin 1 grams Route: IVPB; Site: right antecubital; ea 04:00 Follow up: Response: No adverse reaction; IV Status: Completed infusion; IV Intake: ea 100ml 03:30 Drug: Banana Bag - (NS 0.9% 1000 ml, foLIC Acid 1 mg, Thiamine 100 mg, Multivitamin 1 ea amp) Route: IV; Rate: 200 ml/hr; Site: right antecubital; 07:00 Follow up: Response: No adverse reaction; IV Status: Completed infusion; IV Intake: ea 500ml 04:55 Drug: Potassium Effervescent Tablet 50 mEq Route: PO; ea 05:22 Follow up: Response: No adverse reaction ea Disposition: 11/15/17 04:27 Discharged to Home. Impression: Alcohol abuse with intoxication, Epilepsy and recurrent seizures, Hypokalemia. - Condition is Stable. - Discharge Instructions: Alcohol and Drug Addiction, Finding Treatment, Alcohol Intoxication, Seizure, Adult, Alcohol Intoxication, Rocu-qd-Ysow, Alcohol Abuse and Nutrition, Seizure, Adult, Dodw-ot-Cbzc, How Much is Too Much Alcohol, Qdct-ov-Xucs. - Prescriptions for Dilantin Kapseal 100 mg Oral Capsule - take 1 capsule by ORAL route every 8 hours; 30 capsule. - Medication Reconciliation Form, Thank You Letter, Antibiotic Education, Prescription Opioid Use form. - Follow up: Private Physician; When: 2 - 3 days; Reason: Recheck today's complaints, Continuance of care, Re-evaluation by your physician. Follow up: Manav Paz; When: 2 - 3 days; Reason: Recheck today's complaints, Continuance of care, Re-evaluation by your physician. - Problem is new. - Symptoms have improved. Signatures: Dispatcher [employer] EDDeandre Castrejon MD MD cha Antunez, Elena, RN RN ea Corrections: (The following items were deleted from the chart) 04:27 04:27 11/15/2017 04:27 Discharged to Home. Impression: Alcohol abuse with intoxication; bridgette Epilepsy and recurrent seizures. Condition is Stable. Discharge Instructions: Alcohol and Drug Addiction, Finding Treatment, Alcohol Intoxication, Seizure, Adult, Alcohol Intoxication, Qwph-og-Fbnl, Alcohol Abuse and Nutrition, Seizure, Adult, Ehzx-sp-Ldik, How Much is Too Much Alcohol, Mudr-fe-Gydj. Prescriptions for Dilantin Kapseal 100 mg Oral Capsule - take 1 capsule by ORAL route every 8 hours; 30 capsule. and Forms are Medication Reconciliation Form, Thank You Letter, Antibiotic Education, Prescription Opioid Use. Follow up: Private Physician; When: 2 - 3 days; Reason: Recheck today's complaints, Continuance of care, Re-evaluation by your physician. Follow up: Manav Paz; When: 2 - 3 days; Reason: Recheck today's complaints, Continuance of care, Re-evaluation by your physician. Problem is new. Symptoms have improved. bridgette 07:17 04:27 11/15/2017 04:27 Discharged to Home. Impression: Alcohol abuse with intoxication; ea Epilepsy and recurrent seizures; Hypokalemia. Condition is Stable. Discharge Instructions: Alcohol and Drug Addiction, Finding Treatment, Alcohol Intoxication, Seizure, Adult, Alcohol Intoxication, Tbbt-ih-Tlyy, Alcohol Abuse and Nutrition, Seizure, Adult, Bvdf-vb-Wkwb, How Much is Too Much Alcohol, Jyeu-qe-Wmxo. Prescriptions for Dilantin Kapseal 100 mg Oral Capsule - take 1 capsule by ORAL route every 8 hours; 30 capsule. and Forms are Medication Reconciliation Form, Thank You Letter, Antibiotic Education, Prescription Opioid Use. Follow up: Private Physician; When: 2 - 3 days; Reason: Recheck today's complaints, Continuance of care, Re-evaluation by your physician. Follow up: Manav Paz; When: 2 - 3 days; Reason: Recheck today's complaints, Continuance of care, Re-evaluation by your physician. Problem is new. Symptoms have improved. bridgette
--- NOTE | 2017-11-15 04:28 | ER ---
Nurse's Notes [facility] Name: Walt Velazquez Age: 46 yrs Sex: Male : 1970 Arrival Date: 11/15/2017 Time: 01:20 Bed 13 Private MD: None, None Diagnosis: Alcohol abuse with intoxication;Epilepsy and recurrent seizures;Hypokalemia Presentation: 11/15 01:31 Presenting complaint: Presenting complaint:. ea : Method Of Arrival: EMS: [facility] ea : Transition of care: patient was not received from another setting of care. Onset of ea symptoms was November 15, 2017. Risk Assessment: Do you want to hurt yourself or someone else? Patient reports no desire to harm self or others. Initial Sepsis Screen: Does the patient meet any 2 criteria? No. Patient's initial sepsis screen is negative. Does the patient have a suspected source of infection? No. Patient's initial sepsis screen is negative. Care prior to arrival: None. 03:28 Acuity: LATASHA 3 ea Triage Assessment: :31 General: Appears in no apparent distress. Behavior is cooperative, Smells of alcohol. ea Pain: Complains of pain in headache. EENT: No signs and/or symptoms were reported regarding the EENT system. Neuro: Level of Consciousness is awake, alert, obeys commands, Oriented to person, place, time, situation. Neuro: Reports pt reports he may have had a seizure early this morning. . Cardiovascular: Heart tones S1 S2 present Patient's skin is warm and dry. Respiratory: Airway is patent Respiratory effort is even, unlabored, Respiratory pattern is regular, symmetrical. GI: No signs and/or symptoms were reported involving the gastrointestinal system. Bowel sounds present X 4 quads. : No signs and/or symptoms were reported regarding the genitourinary system. Derm: Skin is dry, Skin is normal, Skin temperature is warm. Musculoskeletal: No signs and/or symptoms reported regarding the musculoskeletal system. Historical: - Allergies: 05:12 Trazodone; ea - Home Meds: 05:12 Dilantin Oral 100 mg three times a day [Active]; Risperdal Oral once daily [Active]; ea Ritalin Oral [Active]; - PMHx: 05:12 Alcoholism; pancreatic cancer; Bipolar disorder; Parkinsons; Seizures; ea - PSHx: 05:12 Unable to obtain; ea - Immunization history:: Adult Immunizations up to date. - Social history:: Smoking status: Patient uses tobacco products, smokes one pack cigarettes per day. - Family history:: not pertinent. - Ebola Screening: : No symptoms or risks identified at this time. Screenin:31 Abuse screen: Denies threats or abuse. Nutritional screening: No deficits noted. ea Tuberculosis screening: No symptoms or risk factors identified. Fall Risk None identified. Assessment: 04:19 Reassessment: Patient and/or family updated on plan of care and expected duration. Pain ea level reassessed. Pt resting with eyes closed, respirations even and unlabored, chest expansions even and symmetrical. No s/s of pain or discomfort noted at this time. 05:22 Reassessment: Pt resting with eye closed, respirations even and unlabored, chest ea expansions even and symmetrical. No obvious s/s of pain or discomfort at this time. 06:34 Reassessment: Pt resting with eyes closed, respirations even and unlabored, chest ea expansions even and symmetrical. No obvious s/s of pain or discomfort noted at this time. Awaiting for IV medications to complete. 07:00 Reassessment: Patient and/or family updated on plan of care and expected duration. Pain ea level reassessed. Patient is alert, oriented x 3, equal unlabored respirations, skin warm/dry/pink. Vital Signs: 01:30 BP 117 / 85; Pulse 71; Resp 18; Temp 98.7(O); Pulse Ox 99% ; Weight 54.43 kg; Height 5 ea ft. (152.40 cm); Pain 7/10; 02:00 BP 106 / 78; Pulse 60; Resp 18; Pulse Ox 98% ; ea 03:30 BP 121 / 77; Pulse 80; Resp 16; Pulse Ox 97% on R/A; ea 04:30 BP 128 / 76; Pulse 73; Resp 16 S; Pulse Ox 97% on R/A; Pain 0/10; ea 05:51 BP 118 / 70; Pulse 70; Resp 18; Pulse Ox 99% ; ea 06:58 BP 120 / 68; Pulse 68; Resp 18 S; Temp 98.3; Pulse Ox 99% ; ea 01:30 Body Mass Index 23.44 (54.43 kg, 152.40 cm) ea ED Course: 01:20 Patient arrived in ED. ds1 01:31 Josiane Gant, ROBERTO is Primary Nurse. ea 01:31 Arm band placed on right wrist. ea 01:31 Patient has correct armband on for positive identification. Bed in low position. Call ea light in reach. Side rails up X2. 01:50 Deandre Mckeon MD is Attending Physician. bridgette 02:00 None, None is Private Physician. ds1 03:28 Triage completed. ea 04:27 Manav Paz MD is Referral Physician. bridgette 07:15 No provider procedures requiring assistance completed. IV discontinued, intact, ea bleeding controlled, No redness/swelling at site. Pressure dressing applied. Administered Medications: 02:00 Drug: NS 0.9% 1000 ml Route: IV; Rate: 1 bolus; Site: right antecubital; ea 03:30 Follow up: Response: No adverse reaction; IV Status: Completed infusion; IV Intake: ea 1000ml 02:53 Drug: Thiamine 100 mg Route: IV; Rate: bolus; Site: right antecubital; ea 03:30 Follow up: Response: No adverse reaction; IV Status: Completed infusion ea 03:30 Drug: Fosphenytoin 1 grams Route: IVPB; Site: right antecubital; ea 04:00 Follow up: Response: No adverse reaction; IV Status: Completed infusion; IV Intake: ea 100ml 03:30 Drug: Banana Bag - (NS 0.9% 1000 ml, foLIC Acid 1 mg, Thiamine 100 mg, Multivitamin 1 ea amp) Route: IV; Rate: 200 ml/hr; Site: right antecubital; 07:00 Follow up: Response: No adverse reaction; IV Status: Completed infusion; IV Intake: ea 500ml 04:55 Drug: Potassium Effervescent Tablet 50 mEq Route: PO; ea 05:22 Follow up: Response: No adverse reaction ea Intake: 03:30 IV: 1000ml; Total: 1000ml. ea 04:00 IV: 100ml; Total: 1100ml. ea 07:00 IV: 500ml; Total: 1600ml. ea Outcome: 04:27 Discharge ordered by . bridgette 07:15 Discharged to [facility], awaiting on transportation. ea 07:15 Condition: improved 07:15 Discharge instructions given to patient, Instructed on discharge instructions, follow up and referral plans. medication usage, Demonstrated understanding of instructions, follow-up care, medications, Prescriptions given X 1. 07:17 Patient left the ED. ea Signatures: Deandre Mckeon MD MD cha Sanford, Demi ds1 Josiane Gant RN RN horacio Corrections: (The following items were deleted from the chart) 04:29 01:31 Presenting complaint: horacio leonard
[2017-11-15 04:53] LABS: Barbiturates NEGATIVE; Benzodiazepines NEGATIVE; Cocaine NEGATIVE; METHAMPHETAM NEGATIVE (NEGATIVE); Opiates NEGATIVE; Phencyclidine NEGATIVE; THC Cannibis NEGATIVE
[2017-11-15 07:26] VITALS: O2SAT 99
[2017-11-15 07:27] VITALS: BP 120/68; TEMP 98.3
--- NOTE | 2017-11-15 11:18 | EKG ---
Test Date: 2017-11-15 Test Time: 03:04:54 Upholsterer Apprentice: SIOMARA MEASUREMENT RESULTS: Intervals: Rate: 65 IN: 200 QRSD: 88 QT: 392 QTc: 407 [place]: P: 56 IN: 200 QRS: 23 T: 19 INTERPRETIVE STATEMENTS: Normal sinus rhythm Normal ECG Compared to ECG 11/02/2017 22:03:09 First degree AV block no longer present T-wave abnormality no longer present Electronically Signed On 11-15-17 11:17:32 CDT by Asim Thompson
== END 2017-11-15 07:17 | disposition home or self-care (01) ==
LOC: ER 01:18
DX: E87.6 Hypokalemia (principal); F10.229 Alcohol dependence with intoxication, unspecified; G20 Parkinson's disease; F17.210 Nicotine dependence, cigarettes, uncomplicated; Z88.6 Allergy status to analgesic agent; Z85.07 Personal history of malignant neoplasm of pancreas
CPT/HCPCS: 36415; 80048; 80076; 80185; 80307; 80320; 80329; 85025; 85610; 85730; 93005; 96361; 96365; 96366; 96367; 96368; 99283; J3411; J7030; Q2009

== ENCOUNTER 2017-11-17 18:50 | Emergency (ER) | payer SELFPAY ==
--- NOTE | 2017-11-17 19:42 | RAD REPORT ---
EXAM DESCRIPTION: CT - Head Brain Wo Cont - 11/17/2017 7:36 pm CLINICAL HISTORY: Found down, possible seizure COMPARISON: CT head October 28 TECHNIQUE: Axial 5 mm thick images of the head were obtained without IV contrast. All CT scans are performed using dose optimization technique as appropriate and may include automated exposure control or mA/KV adjustment according to patient size. FINDINGS: No intracranial hemorrhage, mass, edema or shift of mid-line structures. No acute cortical based infarction. Advanced for age atrophy and chronic ischemic changes are present. Ventricular siz e is in proportion to volume loss. Vascular calcifications are present. No abnormal extra-axial fluid collections. Intracranial findings are similar to comparison. Mastoid air cells and visualized portions of the paranasal sinuses are clear. No acute bony findings. IMPRESSION: Advanced for age atrophy and chronic ischemic change similar to comparison. No acute intracranial finding.
[2017-11-17] MEDS ORDERED: NA CHLORIDE 0.9% 1,000 ML ONE ×2 (20:18→21:25)
[2017-11-17] MEDS ORDERED: NA CHLORIDE 0.9% 0 ML IV ONE (20:18)
[2017-11-17] MEDS ORDERED: THIAMINE 200 MG/2 ML INJ ONE (20:18)
[2017-11-17] MEDS ORDERED: MULTIVITAMINS 10 ML VIAL (INJ) IV ONE (20:21)
[2017-11-17] MEDS ORDERED: FOLIC ACID 5 MG/ML VIAL ONE (20:22)
[2017-11-17] MEDS ORDERED: NA CHLORIDE 0.9% 50 ML IV ONE (20:24)
--- NOTE | 2017-11-17 20:34 | RAD REPORT ---
EXAM DESCRIPTION: RAD - Chest Single View - 11/17/2017 7:43 pm CLINICAL HISTORY: Cough, seizure like activity COMPARISON: September 2017 TECHNIQUE: AP portable chest image was obtained 1932 hours . FINDINGS: Lungs are clear. Heart and vasculature are normal. No measurable pleural effusion and no p neumothorax. No gross bony abnormality seen. No acute aortic findings suspected. IMPRESSION: No acute cardiopulmonary process. No significant interval change.
[2017-11-17 20:43] LABS: Absolute Lymphocytes (CBC) 1.1 K/uL (0.7-4.9); Absolute Monocytes 0.4 K/uL (0.1-1.3); Absolute Neutrophil 0.9 K/uL (1.8-8.0); Basophils % 2.6 % (0-1.3); Eosinophils % 0.2 % (0-4.4); Hematocrit 36.2 % (39.6-49.0); MCH 30.9 pg (27.0-35.0); MCV 93.2 fL (80-100); MPV 7.9 fL (7.6-11.3); Monocytes % 17.2 % (3.3-12.3); RBC Red Blood Cell Count 3.89 M/uL (4.33-5.43)
[2017-11-17 20:47] LABS: Bicarbonate 27 mEq/L (21-31); Glucose Level 133 mg/dL (65-120); Potassium 3.2 mEq/L (3.6-5.0); Protime INR 0.97; Sodium Level 134 mEq/L (135-145)
[2017-11-17 20:52] LABS: ALT/SGPT 59 IU/L (10-60); AST/SGOT 181 IU/L (10-42); Albumin 4.5 g/dL (3.2-5.5); Alkaline Phosphatase 163 IU/L (42-121); BUN Blood Urea Nitrogen 7 mg/dL (6-20); Bilirubin Direct 0.4 mg/dL (0-0.2); Bilirubin Total 1.1 mg/dL (0.3-1.2); Creatine Phosphokinase 182 IU/L (22-269); Phenytoin (Dilantin) Level 22.2 ug/ml (10.0-20.0); Protein, Total 8.3 g/dL (6.0-8.3)
[2017-11-17 20:55] LABS: CKMB Creatine Kinase MB 1.1 ng/ml (0.3-4.0)
[2017-11-17 20:57] LABS: Alcohol Serum/Plasma 397 mg/dl
[2017-11-17 21:09] LABS: Urine Blood NEGATIVE (NEG); Urine Glucose TRACE (NEG); Urine Protein 1+ (NEG); Urine Specific Gravity 1.015 (1.005-1.030)
[2017-11-17 21:23] LABS: Barbiturates NEGATIVE; Benzodiazepines NEGATIVE; Cocaine NEGATIVE; METHAMPHETAM NEGATIVE (NEGATIVE); Opiates NEGATIVE; Phencyclidine NEGATIVE; THC Cannibis NEGATIVE
--- NOTE | 2017-11-17 21:34 | ER ---
Nurse's Notes [facility] Name: Walt Velazquez Age: 46 yrs Sex: Male : 1970 Arrival Date: 11/17/2017 Time: 18:50 Bed 17 Private MD: Diagnosis: Alcohol abuse;Alcohol abuse with intoxication;Epilepsy and recurrent seizures;Epileptic seizures related to external causes;Hypokalemia Presentation: 11/17 18:51 Presenting complaint: EMS states: pt was seen around 1800 laying down behind a [employer] [place] by another person. he got up and was ambulatory on scene. pt has hx of tremors. the person who called EMS stated they thought he was having a seizure. pt may have Parkinson's as well. Transition of care: patient was not received from another setting of care. Onset of symptoms was November 17, 2017 at 18:00. Risk Assessment: Do you want to hurt yourself or someone else? Patient reports no desire to harm self or others. Initial Sepsis Screen: Does the patient meet any 2 criteria? No. Patient's initial sepsis screen is negative. Does the patient have a suspected source of infection? No. Patient's initial sepsis screen is negative. Care prior to arrival: None. 18:51 Method Of Arrival: EMS: [facility] 18:51 Acuity: LATASHA 3 18:56 Note BGL 118 on scene. Triage Assessment: 18:54 General: Appears in no apparent distress. comfortable, Behavior is calm, cooperative, ch appropriate for age. Neuro:. Historical: - Allergies: 18:54 Trazodone; - Home Meds: 18:54 not taking any of his home medications now [Active]; ch - PMHx: 18:54 Alcoholism; Bipolar disorder; pancreatic cancer; Parkinsons; Seizures; DT; ch - PSHx: 18:54 None; - Immunization history:: Adult Immunizations unknown. - Social history:: Smoking status: unknown. - Ebola Screening: : Patient negative for fever greater than or equal to 101.5 degrees Fahrenheit, and additional compatible Ebola Virus Disease symptoms Patient denies exposure to infectious person Patient denies travel to an Ebola-affected area in the 21 days before illness onset No symptoms or risks identified at this time. - Family history:: not pertinent. Screenin:55 Abuse screen: Denies threats or abuse. Denies injuries from another. Nutritional ch screening: No deficits noted. Tuberculosis screening: No symptoms or risk factors identified. Fall Risk None identified. Assessment: 19:00 General: Appears uncomfortable, Behavior is calm, cooperative, appropriate for age, jd3 Smells of alcohol. Pain: Complains of pain in head Pain currently is 2 out of 10 on a pain scale. Quality of pain is described as aching. Neuro: Level of Consciousness is awake, alert, obeys commands, Oriented to person, place, time, situation, Customer Sales Service Manager are equal bilaterally Moves all extremities. Speech is slurred, Facial symmetry appears normal, Pupils are PERRLA, Intact. Cardiovascular: Heart tones S1 S2 present Capillary refill < 3 seconds Patient's skin is warm and dry. Respiratory: Airway is patent Respiratory effort is even, unlabored, Respiratory pattern is regular, symmetrical, Breath sounds are clear bilaterally. GI: Abdomen is flat, Bowel sounds present X 4 quads. Abd is soft and non tender X 4 quads. Patient currently denies diarrhea, nausea, vomiting. : No signs and/or symptoms were reported regarding the genitourinary system. EENT: No signs and/or symptoms were reported regarding the EENT system. Derm: Skin is intact, Skin is dry, Skin is normal, Skin temperature is warm. Musculoskeletal: Circulation, motion, and sensation intact. Range of motion: intact in all extremities. 20:00 Reassessment: Patient appears in no apparent distress at this time. Patient and/or jd3 family updated on plan of care and expected duration. Pain level reassessed. Patient is alert, oriented x 3, equal unlabored respirations, skin warm/dry/pink. 21:00 Reassessment: Patient appears in no apparent distress at this time. Patient and/or jd3 family updated on plan of care and expected duration. Pain level reassessed. Patient is alert, oriented x 3, equal unlabored respirations, skin warm/dry/pink. 22:20 Reassessment: Patient appears in no apparent distress at this time. Patient and/or jd3 family updated on plan of care and expected duration. Pain level reassessed. Patient is alert, oriented x 3, equal unlabored respirations, skin warm/dry/pink. waiting for IV fluids to finish before discharge. Patient denies pain at this time. 23:50 Reassessment: Patient appears in no apparent distress at this time. Patient and/or jd3 family updated on plan of care and expected duration. Pain level reassessed. Patient is alert, oriented x 3, equal unlabored respirations, skin warm/dry/pink. pt reported understanding of discharge instructions, pt assisted to lobby to wait for ride in wheelchair. Patient denies pain at this time. Vital Signs: 18:54 BP 125 / 88; Pulse 85; Resp 17; Temp 97.6; Pulse Ox 99% on R/A; Weight 63.5 kg; Height 5 ft. 8 in. (172.72 cm); 21:00 BP 117 / 82; Pulse 85; Resp 18 S; Pulse Ox 100% on R/A; Pain 0/10; jd3 22:20 BP 117 / 85; Pulse 86; Resp 15 S; Pulse Ox 99% on R/A; Pain 0/10; jd3 23:50 BP 118 / 80; Pulse 74; Resp 16 S; Pulse Ox 100% on R/A; Pain 0/10; jd3 18:54 Body Mass Index 21.29 (63.50 kg, 172.72 cm) [place] Coma Score: 18:54 Eye Response: spontaneous(4). Verbal Response: oriented(5). Motor Response: obeys commands(6). Total: 15. ED Course: 18:50 Patient arrived in ED. 18:52 Triage completed. 18:54 Arm band placed on left wrist. Patient placed in an exam room, on pulse oximetry. 18:55 Patient has correct armband on for positive identification. Bed in low position. Call light in reach. Side rails up X2. Adult w/ patient. 18:58 Deandre Mckeon MD is Attending Physician. [facility] 19:00 Seizure precautions initiated. jd3 19:[address] via stretcher. nj 19:35 CT completed. Patient moved back from CT. vm2 19:36 CT Head Brain wo Cont In Process Unspecified. EDMS 19:38 Oliver Thomas RN is Primary Nurse. jd3 19:41 X-ray completed. Patient tolerated procedure poorly. mh1 19:41 Patient moved back from radiology. mh1 19:42 XRAY Chest (1 view) In Process Unspecified. EDMS 20:05 Inserted saline lock: 20 gauge in right antecubital area, using aseptic technique. jd3 Blood collected. 23:51 No provider procedures requiring assistance completed. IV discontinued, intact, jd3 bleeding controlled, No redness/swelling at site. Pressure dressing applied. Administered Medications: 20:46 Drug: Thiamine 100 mg Route: IV; Rate: bolus; Site: right antecubital; jd3 21:29 Follow up: Response: No adverse reaction; IV Status: Completed infusion jd3 20:46 Drug: Banana Bag - (NS 0.9% 1000 ml, foLIC Acid 1 mg, Thiamine 100 mg, Multivitamin 1 jd3 amp) Route: IV; Rate: 150 ml/hr; Site: right antecubital; 23:53 Follow up: Response: No adverse reaction; IV Status: Order to discontinue infusion; IV jd3 Intake: 750ml 21:29 Drug: NS 0.9% 1000 ml Route: IV; Rate: 1 bolus; Site: right antecubital; jd3 21:57 Follow up: Response: No adverse reaction; IV Status: Completed infusion; IV Intake: jd3 1000ml 21:57 Drug: Potassium Effervescent Tablet 25 mEq Route: PO; jd3 23:53 Follow up: Response: No adverse reaction jd3 Intake: 21:57 IV: 1000ml; Total: 1000ml. jd3 23:53 IV: 750ml; Total: 1750ml. jd3 Output: 23:53 Urine: 350ml; Total: 350ml. jd3 Outcome: 21:33 Discharge ordered by . bridgette 23:52 Discharged to home via wheelchair. jd3 23:52 Condition: stable 23:52 Discharge instructions given to patient, Instructed on discharge instructions, follow up and referral plans. Demonstrated understanding of instructions, follow-up care. 23:54 Patient left the ED. jd3 Signatures: Dispatcher [employer] EDMS Fidelia Mccartney RN RN ch Anderson, Corey, MD MD cha Harvey, Martha 1 Sanjay Marroquin Victoria 2 Oliver Thomas RN RN jd3 Corrections: (The following items were deleted from the chart) 21:17 20:00 General: Appears uncomfortable, Behavior is calm, cooperative, appropriate for jd3 age, Smells of alcohol, jd3 21:17 20:00 Pain: Complains of pain in head Pain currently is 2 out of 10 on a pain scale. jd3 Quality of pain is described as aching, jd3 : 20:00 Neuro: Level of Consciousness is awake, alert, obeys commands, Oriented to jd3 person, place, time, situation, Customer Sales Service Manager are equal bilaterally Moves all extremities. Speech is slurred, Facial symmetry appears normal, Pupils are PERRLA, Intact jd3 : 20:00 Cardiovascular: Heart tones S1 S2 present Capillary refill < 3 seconds Patient's jd3 skin is warm and dry. jd3 : 20:00 Respiratory: Airway is patent Respiratory effort is even, unlabored, Respiratory jd3 pattern is regular, symmetrical, Breath sounds are clear bilaterally. jd3 : 20:00 GI: Abdomen is flat, Bowel sounds present X 4 quads. Abd is soft and non tender X jd3 4 quads. Patient currently denies diarrhea, nausea, vomiting, jd3 : 20:00 : No signs and/or symptoms were reported regarding the genitourinary system. jd3jd3 : 20:00 EENT: No signs and/or symptoms were reported regarding the EENT system. jd3 jd3 : 20:00 Derm: Skin is intact, Skin is dry, Skin is normal, Skin temperature is warm jd3 jd3 : 20:00 Musculoskeletal: Circulation, motion, and sensation intact. Range of motion: jd3 intact in all extremities, jd3
--- NOTE | 2017-11-17 21:34 | EDPHYS ---
Physician Documentation [facility] Name: Walt Velazquez Age: 46 yrs Sex: Male : 1970 Arrival Date: 11/17/2017 Time: 18:50 Bed 17 Private MD: ED Physician Deandre Mckeon HPI: 11/17 19:13 This 46 yrs old Male presents to ER via EMS with complaints of Probable bridgette Seizure. 19:13 The patient presents after having a single isolated seizure, that lasted an unknown bridgette period of time. Character of seizure(s): Loss of consciousness: the patient did not lose consciousness, Motor activity: generalized, Incontinence: incontinent of bladder. Seizure onset: just prior to arrival. Seizure Hx: Cause: alcohol abuse history, unknown. Seizure Hx: the patient has no previous seizure history. The patient has experienced similar episodes in the past, multiple times. Historical: - Allergies: 18:54 Trazodone; ch - Home Meds: 18:54 not taking any of his home medications now [Active]; ch - PMHx: 18:54 Alcoholism; Bipolar disorder; pancreatic cancer; Parkinsons; Seizures; DT; ch - PSHx: 18:54 None; ch - Immunization history:: Adult Immunizations unknown. - Social history:: Smoking status: unknown. - Ebola Screening: : Patient negative for fever greater than or equal to 101.5 degrees Fahrenheit, and additional compatible Ebola Virus Disease symptoms Patient denies exposure to infectious person Patient denies travel to an Ebola-affected area in the 21 days before illness onset No symptoms or risks identified at this time. - Family history:: not pertinent. ROS: 19:13 Constitutional: Negative for fever, chills, and weight loss, Eyes: Negative for injury, bridgette pain, redness, and discharge, ENT: Negative for injury, pain, and discharge, Neck: Negative for injury, pain, and swelling, Cardiovascular: Negative for chest pain, palpitations, and edema, Respiratory: Negative for shortness of breath, cough, wheezing, and pleuritic chest pain, Abdomen/GI: Negative for abdominal pain, nausea, vomiting, diarrhea, and constipation, Back: Negative for injury and pain, : Negative for injury, bleeding, discharge, and swelling, MS/Extremity: Negative for injury and deformity, Skin: Negative for injury, rash, and discoloration, Psych: Negative for depression, anxiety, suicide ideation, homicidal ideation, and hallucinations, Allergy/Immunology: Negative for hives, rash, and allergies, Endocrine: Negative for neck swelling, polydipsia, polyuria, polyphagia, and marked weight changes, Hematologic/Lymphatic: Negative for swollen nodes, abnormal bleeding, and unusual bruising. 19:13 Neuro: Positive for altered mental status, weakness. Exam: 19:13 Constitutional: This is a well developed, well nourished patient who is awake, alert, bridgette and in no acute distress. Head/Face: Normocephalic, atraumatic. Eyes: Pupils equal round and reactive to light, extra-ocular motions intact. Lids and lashes normal. Conjunctiva and sclera are non-icteric and not injected. Cornea within normal limits. Periorbital areas with no swelling, redness, or edema. ENT: Nares patent. No nasal discharge, no septal abnormalities noted. Tympanic membranes are normal and external auditory canals are clear. Oropharynx with no redness, swelling, or masses, exudates, or evidence of obstruction, uvula midline. Mucous membranes moist. Neck: Trachea midline, no thyromegaly or masses palpated, and no cervical lymphadenopathy. Supple, full range of motion without nuchal rigidity, or vertebral point tenderness. No Meningismus. Chest/axilla: Normal chest wall appearance and motion. Nontender with no deformity. No lesions are appreciated. Cardiovascular: Regular rate and rhythm with a normal S1 and S2. No gallops, murmurs, or rubs. Normal PMI, no JVD. No pulse deficits. Respiratory: Lungs have equal breath sounds bilaterally, clear to auscultation and percussion. No rales, rhonchi or wheezes noted. No increased work of breathing, no retractions or nasal flaring. Abdomen/GI: Soft, non-tender, with normal bowel sounds. No distension or tympany. No guarding or rebound. No evidence of tenderness throughout. Back: No spinal tenderness. No costovertebral tenderness. Full range of motion. Male : Normal genitalia with no discharge or lesions. Skin: Warm, dry with normal turgor. Normal color with no rashes, no lesions, and no evidence of cellulitis. MS/ Extremity: Pulses equal, no cyanosis. Neurovascular intact. Full, normal range of motion. Psych: Awake, alert, with orientation to person, place and time. Behavior, mood, and affect are within normal limits. 19:13 Neuro: Orientation: to person, place, Not oriented to time, situation, Mentation: slow to respond, Memory: unable to test, Cranial nerves: is grossly normal based on the patient's age, no acute changes, Cerebellar function: unable to test, Motor: moves all fours, Gait: not tested. Babinski testing is normal, seizure activity, is not displayed by the patient. Vital Signs: 18:54 BP 125 / 88; Pulse 85; Resp 17; Temp 97.6; Pulse Ox 99% on R/A; Weight 63.5 kg; Height ch 5 ft. 8 in. (172.72 cm); 21:00 BP 117 / 82; Pulse 85; Resp 18 S; Pulse Ox 100% on R/A; Pain 0/10; jd3 22:20 BP 117 / 85; Pulse 86; Resp 15 S; Pulse Ox 99% on R/A; Pain 0/10; jd3 23:50 BP 118 / 80; Pulse 74; Resp 16 S; Pulse Ox 100% on R/A; Pain 0/10; jd3 18:54 Body Mass Index 21.29 (63.50 kg, 172.72 cm) [place] Coma Score: 18:54 Eye Response: spontaneous(4). Verbal Response: oriented(5). Motor Response: obeys commands(6). Total: 15. MDM: 19:13 Patient medically screened. [facility] 19:16 Data reviewed: vital signs, nurses notes, lab test result(s), EKG, radiologic studies, [facility] CT scan, plain films. 11/17 19:02 Order name: Basic Metabolic Panel; Complete Time: 21:30 [facility] 11/17 19:02 Order name: BNP; Complete Time: 21:30 [facility] 11/17 19:02 Order name: CBC with Diff; Complete Time: 21:30 [facility] 11/17 19:02 Order name: Ckmb; Complete Time: 21:30 [facility] 11/17 19:02 Order name: CPK; Complete Time: 21:30 [facility] 11/17 19:02 Order name: LFT's; Complete Time: 21:30 [facility] 11/17 19:02 Order name: Magnesium; Complete Time: 21:30 [facility] 11/17 19:02 Order name: PT-INR; Complete Time: 21:30 [facility] 11/17 19:02 Order name: Ptt, Activated; Complete Time: 21:30 [facility] 11/17 19:02 Order name: Troponin (emerg Dept Use Only); Complete Time: 21:30 [facility] 11/17 19:02 Order name: Acetaminophen; Complete Time: 21:30 [facility] 11/17 19:02 Order name: ETOH Level; Complete Time: 21:30 [facility] 11/17 19:02 Order name: Salicylate; Complete Time: 21:30 [facility] 11/17 19:02 Order name: Urine Drug Screen; Complete Time: 21:30 [facility] 11/17 19:02 Order name: XRAY Chest (1 view); Complete Time: 20:38 [facility] 11/17 19:02 Order name: EKG; Complete Time: 19:03 [facility] 11/17 19:02 Order name: Cardiac monitoring; Complete Time: 19:08 [facility] 11/17 19:02 Order name: EKG - Nurse/Tech; Complete Time: 19:38 [facility] 11/17 19:02 Order name: IV Saline Lock; Complete Time: 20:15 [facility] 11/17 19:02 Order name: Labs collected and sent; Complete Time: 20:15 [facility] 11/17 19:02 Order name: O2 Per Protocol; Complete Time: 19:08 [facility] 11/17 19:02 Order name: O2 Sat Monitoring; Complete Time: 19:08 [facility] 11/17 19:02 Order name: Urine Dipstick-Ancillary (obtain specimen); Complete Time: 22:18 [facility] 11/17 19:02 Order name: Dilantin; Complete Time: 21:30 [facility] 11/17 19:17 Order name: CT Head Brain wo Cont; Complete Time: 20:38 [facility] 11/17 21:08 Order name: Urine Dipstick--Ancillary (enter results); Complete Time: 21:30 11/17 19:02 Order name: Seizure Precautions; Complete Time: 19:08 [facility] Administered Medications: 20:46 Drug: Thiamine 100 mg Route: IV; Rate: bolus; Site: right antecubital; jd3 21:29 Follow up: Response: No adverse reaction; IV Status: Completed infusion jd3 20:46 Drug: Banana Bag - (NS 0.9% 1000 ml, foLIC Acid 1 mg, Thiamine 100 mg, Multivitamin 1 jd3 amp) Route: IV; Rate: 150 ml/hr; Site: right antecubital; 23:53 Follow up: Response: No adverse reaction; IV Status: Order to discontinue infusion; IV jd3 Intake: 750ml 21:29 Drug: NS 0.9% 1000 ml Route: IV; Rate: 1 bolus; Site: right antecubital; jd3 21:57 Follow up: Response: No adverse reaction; IV Status: Completed infusion; IV Intake: jd3 1000ml 21:57 Drug: Potassium Effervescent Tablet 25 mEq Route: PO; jd3 23:53 Follow up: Response: No adverse reaction jd3 Disposition: 11/17/17 21:33 Discharged to Home. Impression: Alcohol abuse, Alcohol abuse with intoxication, Epilepsy and recurrent seizures, Epileptic seizures related to external causes, Hypokalemia. - Condition is Fair. - Discharge Instructions: Alcohol and Drug Addiction, Finding Treatment, Alcohol Intoxication, Alcohol Withdrawal, Alcohol Use Disorder, Potassium Content of Foods, Seizure, Adult, Alcohol Abuse and Nutrition, Seizure, Adult, [id number], Hypokalemia. - Medication Reconciliation Form, Thank You Letter, Antibiotic Education, Prescription Opioid Use form. - Follow up: Private Physician; When: 2 - 3 days; Reason: Recheck today's complaints, Continuance of care, Re-evaluation by your physician. - Problem is new. - Symptoms have improved. Signatures: Dispatcher [employer] Fidelia Lea, RN Deandre Quezada ch, MD MD cha Davies, Jonathon, RN RN jd3 Corrections: (The following items were deleted from the chart) 23:54 21:33 11/17/2017 21:33 Discharged to Home. Impression: Alcohol abuse; Alcohol abuse jd3 with intoxication; Epilepsy and recurrent seizures; Epileptic seizures related to external causes; Hypokalemia. Condition is Fair. Discharge Instructions: Alcohol and Drug Addiction, Finding Treatment, Alcohol Intoxication, Alcohol Withdrawal, Alcohol Use Disorder, Seizure, Adult, Alcohol Abuse and Nutrition, Seizure, Adult, [id number]. Forms are Medication Reconciliation Form, Thank You Letter, Antibiotic Education, Prescription Opioid Use. Follow up: Private Physician; When: 2 - 3 days; Reason: Recheck today's complaints, Continuance of care, Re-evaluation by your physician. Problem is new. Symptoms have improved. bridgette
[2017-11-17] MEDS ORDERED: POTASSIUM 25 MEQ EFFERV TAB ONE (21:52)
[2017-11-18 00:53] VITALS: TEMP 97.6
[2017-11-18 00:57] VITALS: BP 118/80; O2SAT 100
--- NOTE | 2017-11-18 07:43 | EKG ---
Test Date: 2017-11-17 Test Time: 19:15:06 Shot Core Drill Operator: MEASUREMENT RESULTS: Intervals: Rate: 82 NH: 206 QRSD: 86 QT: 352 QTc: 411 [place]: P: 42 NH: 206 QRS: 18 T: 32 INTERPRETIVE STATEMENTS: Normal sinus rhythm Normal ECG Compared to ECG 11/15/2017 03:04:54 No significant changes Electronically Signed On 11-18-17 07:42:59 CDT by Barron Kumar
== END 2017-11-17 23:54 | disposition home or self-care (01) ==
LOC: ER 18:50
DX: G40.802 Other epilepsy, not intractable, without status epilepticus (principal); E87.6 Hypokalemia; F10.229 Alcohol dependence with intoxication, unspecified; G40.509 Epileptic seizures related to external causes, not intractable, without status epilepticus; G20 Parkinson's disease; Z88.6 Allergy status to analgesic agent; Z85.07 Personal history of malignant neoplasm of pancreas
CPT/HCPCS: 36415; 70450; 71045; 80048; 80076; 80185; 80307; 80320; 80329; 81003; 82550; 82553; 83735; 83880; 84484; 85025; 85610; 85730; 93005; 96361; 96365; 96366; 96368; 99284; J3411; J7030

== ENCOUNTER 2017-11-20 11:16 | Emergency (ER) | payer SELFPAY ==
[2017-11-20] MEDS ORDERED: NA CHLORIDE 0.9% 0 ML ONE (11:32)
[2017-11-20] MEDS ORDERED: NA CHLORIDE 0.9% 1,000 ML ONE (11:37)
[2017-11-20 11:48] LABS: Absolute Lymphocytes (CBC) 0.8 K/uL (0.7-4.9); Absolute Monocytes 0.6 K/uL (0.1-1.3); Absolute Neutrophil 2.4 K/uL (1.8-8.0); Basophils % 1.8 % (0-1.3); Eosinophils % 0.3 % (0-4.4); Hematocrit 34.2 % (39.6-49.0); Lymphocytes % 20.9 % (15.3-44.8); MCH 30.7 pg (27.0-35.0); MCV 95.1 fL (80-100); MPV 7.9 fL (7.6-11.3); Monocytes % 14.8 % (3.3-12.3)
[2017-11-20 11:55] LABS: Bicarbonate 25 mEq/L (21-31); Glucose Level 144 mg/dL (65-120); Potassium 3.2 mEq/L (3.6-5.0); Sodium Level 135 mEq/L (135-145)
[2017-11-20 11:56] LABS: BUN Blood Urea Nitrogen 6 mg/dL (6-20)
--- NOTE | 2017-11-20 12:12 | RAD REPORT ---
EXAM DESCRIPTION: CT - [id number] - 11/20/2017 11:50 am CLINICAL HISTORY: Seizure, head and neck trauma COMPARISON: CT head and neck March 2017 TECHNIQUE: Axial 5 mm thick images of the head were obtained. Axial 2 mm thick images of the cervic al spine were obtained with sagittal and coronal reconstruction images generated and reviewed. All CT scans are performed using dose optimization technique as appropriate and may include automated exposure control or mA/KV adjustment according to patient size. FINDINGS: No intracranial hemorrhage, mass, edema or acute intracranial finding. No acute cortical infarction. Patient has advanced for age atrophy. No significant chronic ischemic component. Ventricles are in pr oportion to the amount of volume loss. Physiologic calcifications are present. No extra-axial fluid c ollections. Mastoid air cells and paranasal sinuses are clear. No globe or orbit abnormality seen. Cervical bodies are normal in height. Mild C5-6 and significant C6-7 disc and endplate degenerative c hange. C6-7 disc height is narrowed. There is large anterior spurring and bridging ossification that spans C2 to at least T2. No fracture or acute bony abnormality. Central canal detail is inherently li mited. Central spinal stenosis or significant foraminal encroachment are not suspected. Patient has d ense carotid calcifications. No paraspinal mass or hematoma. IMPRESSION: No hemorrhage, edema or acute intracranial finding. Patient has advanced for age atrophy. Intracranial findings are similar to March 2017. Cervical spine degenerative changes are present as detailed. No fracture or acute cervical finding se en.
[2017-11-20 12:17] LABS: Blood Morphology Comment NOT SEEN (NOT SEEN); Platelet Estimate ADEQ; Urine White Blood Cell Casts OK
--- NOTE | 2017-11-20 12:44 | EDPHYS ---
Physician Documentation [facility] Name: Walt Velazquez Age: 46 yrs Sex: Male : 1970 Arrival Date: 11/20/2017 Time: 11:17 Bed 2 Private MD: ED Physician Braydon Mejia HPI: 11/20 12:54 This 46 yrs old Male presents to ER via EMS with complaints of Probable gs Seizure, Leg Injury. 12:54 The patient presents after having a single isolated seizure, that lasted an unknown gs period of time. Seizure onset: just prior to arrival. Seizure Hx: Original onset: longstanding. Associated injury: Right lower extremity: deformity. Current symptoms: Currently, the patient is not experiencing any symptoms. The patient has experienced similar episodes in the past, several times. Historical: - Allergies: 11:23 Trazodone; sv - Home Meds: :23 not taking any of his home medications now [Active]; sv - PMHx: 11:23 Alcoholism; Bipolar disorder; DT; pancreatic cancer; Parkinsons; Seizures; sv - PSHx: 11:23 None; sv - Immunization history:: Adult Immunizations up to date. - Social history:: Smoking status: Patient/guardian denies using tobacco, Patient uses alcohol, on a daily basis. - Ebola Screening: : Patient negative for fever greater than or equal to 101.5 degrees Fahrenheit, and additional compatible Ebola Virus Disease symptoms Patient denies exposure to infectious person Patient denies travel to an Ebola-affected area in the 21 days before illness onset No symptoms or risks identified at this time. ROS: 12:54 All other systems are negative. gs Exam: 12:54 Head/Face: Normocephalic, atraumatic. Eyes: Pupils equal round and reactive to light, gs extra-ocular motions intact. Lids and lashes normal. Conjunctiva and sclera are non-icteric and not injected. Cornea within normal limits. Periorbital areas with no swelling, redness, or edema. ENT: Nares patent. No nasal discharge, no septal abnormalities noted. Tympanic membranes are normal and external auditory canals are clear. Oropharynx with no redness, swelling, or masses, exudates, or evidence of obstruction, uvula midline. Mucous membranes moist. Neck: Trachea midline, no thyromegaly or masses palpated, and no cervical lymphadenopathy. Supple, full range of motion without nuchal rigidity, or vertebral point tenderness. No Meningismus. 12:54 Chest/axilla: Normal chest wall appearance and motion. Nontender with no deformity. No lesions are appreciated. Cardiovascular: Regular rate and rhythm with a normal S1 and S2. No gallops, murmurs, or rubs. Normal PMI, no JVD. No pulse deficits. Respiratory: Lungs have equal breath sounds bilaterally, clear to auscultation and percussion. No rales, rhonchi or wheezes noted. No increased work of breathing, no retractions or nasal flaring. Abdomen/GI: Soft, non-tender, with normal bowel sounds. No distension or tympany. No guarding or rebound. No evidence of tenderness throughout. Back: No spinal tenderness. No costovertebral tenderness. Full range of motion. Skin: Warm, dry with normal turgor. Normal color with no rashes, no lesions, and no evidence of cellulitis. Neuro: Awake and alert, GCS 15, oriented to person, place, time, and situation. Cranial nerves II-XII grossly intact. Motor strength 5/5 in all extremities. Sensory grossly intact. Cerebellar exam normal. Normal gait. 12:54 Constitutional: The patient appears alert, awake. 12:54 Constitutional: The patient appears intoxicated 12:54 Musculoskeletal/extremity: Extremities: noted in the right amos: deformity, swelling, tenderness. Vital Signs: 11:23 BP 129 / 86; Pulse 79; Resp 18; Temp 98.2; Pulse Ox 98% ; sv 13:11 BP 118 / 79; Pulse 80; Resp 18; Pulse Ox 100% ; sv [facility] Coma Score: 11:24 Eye Response: spontaneous(4). Verbal Response: oriented(5). Motor Response: obeys sv commands(6). Total: 15. MDM: 11:24 Patient medically screened. 12:54 Differential diagnosis: seizure, FRACTURE. Data reviewed: vital signs, nurses notes. Response to treatment: the patient's symptoms have markedly improved after treatment, and as a result, I will discharge patient. 11/20 11:27 Order name: CBC with Diff; Complete Time: 12:42 11/20 11:27 Order name: Basic Metabolic Panel; Complete Time: 12:42 11/20 11:27 Order name: Tib Fib Right XRAY 11/20 11:27 Order name: CT Head C Spine; Complete Time: 12:42 gs 11/20 11:56 Order name: CBC Smear Scan; Complete Time: 12:42 EDAR 11/20 11:40 Order name: IV Saline Lock; Complete Time: 11:40 sv 11/20 11:40 Order name: Labs collected and sent; Complete Time: 11:40 sv Administered Medications: 11:40 Drug: NS 0.9% 1000 ml Route: IV; Rate: 1 bolus; Site: right forearm; sv 12:20 Follow up: Response: No adverse reaction; IV Status: Completed infusion; IV Intake: sv 1000ml Disposition: 11/20/17 12:43 Discharged to Home. Impression: Contusion of right lower leg, Epilepsy and recurrent seizures, Alcohol abuse. - Condition is Stable. - Discharge Instructions: Contusion, Seizure, Adult. - Medication Reconciliation Form, Thank You Letter, Antibiotic Education, Prescription Opioid Use form. - Follow up: Gabo Villanueva MD; When: 2 - 3 days; Reason: Re-evaluation by your physician. Signatures: Dispatcher [employer] Elisa Ahumada RN RN Braydon Gottlieb MD MD Corrections: (The following items were deleted from the chart) 13:43 12:43 11/20/2017 12:43 Discharged to Home. Impression: Contusion of right lower leg; sv Epilepsy and recurrent seizures; Alcohol abuse. Condition is Stable. Forms are Medication Reconciliation Form, Thank You Letter, Antibiotic Education, Prescription Opioid Use. Follow up: Gabo Villanueva; When: 2 - 3 days; Reason: Re-evaluation by your physician.
--- NOTE | 2017-11-20 12:44 | ER ---
Nurse's Notes [facility] Name: Walt Velazquez Age: 46 yrs Sex: Male : 1970 Arrival Date: 11/20/2017 Time: 11:17 Bed 2 Private MD: Diagnosis: Contusion of right lower leg;Epilepsy and recurrent seizures;Alcohol abuse Presentation: 11/20 11:13 Presenting complaint: EMS states: unwitnessed seizure at [facility]. Pt reports leg sv injury that "might have been this morning." Yellow and purple bruising noted to RLE. Transition of care: patient was not received from another setting of care. Onset of symptoms was November 20, 2017. Care prior to arrival: None. 11:13 Method Of Arrival: EMS: [facility] sv 11:13 Acuity: LATASHA 3 sv 11:14 Risk Assessment: Do you want to hurt yourself or someone else? Patient reports no sv desire to harm self or others. Initial Sepsis Screen: Does the patient meet any 2 criteria? No. Patient's initial sepsis screen is negative. Does the patient have a suspected source of infection? No. Patient's initial sepsis screen is negative. Triage Assessment: 11:24 General: Appears uncomfortable, Behavior is calm, cooperative. Pain: Complains of pain sv in right amos and anterior aspect of right ankle Pain does not radiate. Pain currently is 5 out of 10 on a pain scale. Quality of pain is described as tender, Pain began unknown Is continuous. EENT: No signs and/or symptoms were reported regarding the EENT system. Neuro: Level of Consciousness is awake, alert, obeys commands, Oriented to person, place, time, situation, Moves all extremities. Seizure activity reported prior to arrival. Cardiovascular: Patient's skin is warm and dry. Pulses are 3+ in right dorsalis pedis artery and left dorsalis pedis artery. Respiratory: Respiratory effort is even, unlabored, Respiratory pattern is regular, symmetrical. Derm: Skin is normal, Bruising that is dark purple, yellow, on right amos and anterior aspect of right ankle. Musculoskeletal: No signs and/or symptoms reported regarding the musculoskeletal system. Historical: - Allergies: 11:23 Trazodone; sv - Home Meds: 11:23 not taking any of his home medications now [Active]; sv - PMHx: 11:23 Alcoholism; Bipolar disorder; DT; pancreatic cancer; Parkinsons; Seizures; sv - PSHx: 11:23 None; sv - Immunization history:: Adult Immunizations up to date. - Social history:: Smoking status: Patient/guardian denies using tobacco, Patient uses alcohol, on a daily basis. - Ebola Screening: : Patient negative for fever greater than or equal to 101.5 degrees Fahrenheit, and additional compatible Ebola Virus Disease symptoms Patient denies exposure to infectious person Patient denies travel to an Ebola-affected area in the 21 days before illness onset No symptoms or risks identified at this time. Screenin:26 Abuse screen: Denies threats or abuse. Denies injuries from another. Nutritional sv screening: No deficits noted. Tuberculosis screening: No symptoms or risk factors identified. Fall Risk Fall in past 12 months (25 points). Secondary diagnosis (15 points) seizures, No IV (0 pts). Ambulatory Aid- None/Bed Rest/Nurse Assist (0 pts). Gait- Normal/Bed Rest/Wheelchair (0 pts) Mental Status- Oriented to own ability (0 pts). Total Cadena Fall Scale indicates Low Risk Score (25-44 pts). Fall prevention measures have been instituted. Side Rails Up X 2 Placed close to Nursing Station Frequent Obs/Assesments occuring As available Patient and Family Educated on Fall Prevention Program and strategies. Assessment: 11:26 Reassessment: See triage assessment. sv 12:30 Reassessment: Patient appears in no apparent distress at this time. No changes from sv previously documented assessment. Patient and/or family updated on plan of care and expected duration. Pain level reassessed. Patient is alert, oriented x 3, equal unlabored respirations, skin warm/dry/pink. 13:15 Reassessment: Patient appears in no apparent distress at this time. No changes from sv previously documented assessment. Patient and/or family updated on plan of care and expected duration. Pain level reassessed. Patient is alert, oriented x 3, equal unlabored respirations, skin warm/dry/pink. Pt waiting for a bus pass before discharge. Vital Signs: 11:23 BP 129 / 86; Pulse 79; Resp 18; Temp 98.2; Pulse Ox 98% ; sv 13:11 BP 118 / 79; Pulse 80; Resp 18; Pulse Ox 100% ; sv [facility] Coma Score: 11:24 Eye Response: spontaneous(4). Verbal Response: oriented(5). Motor Response: obeys sv commands(6). Total: 15. ED Course: 11:17 Patient arrived in ED. sv 11:18 Elisa Zhong RN is Primary Nurse. sv 11:19 Braydon Mejia MD is Attending Physician. gs 11:20 Triage completed. sv 11:26 Arm band placed on right wrist. sv 11:27 Patient has correct armband on for positive identification. Bed in low position. Side sv rails up X2. Seizure precautions initiated. 11:35 Initial lab(s) drawn, by nm, sent to lab. Inserted saline lock: 20 gauge in right sv forearm, using aseptic technique. Blood collected. Flushed right forearm with 5 ml normal saline. 11:[address] via stretcher. nj 11:50 CT completed. Patient tolerated procedure well. Patient moved back from CT. nj 11:51 CT Head C Spine In Process Unspecified. EDMS 12:43 Gabo Villanueva MD is Referral Physician. gs 13:05 Tib Fib Right XRAY In Process Unspecified. EDMS 13:08 X-ray completed. Portable x-ray completed in exam room. Patient tolerated procedure mh1 well. 13:43 No provider procedures requiring assistance completed. IV discontinued, intact, sv bleeding controlled, No redness/swelling at site. Pressure dressing applied. Administered Medications: 11:40 Drug: NS 0.9% 1000 ml Route: IV; Rate: 1 bolus; Site: right forearm; sv 12:20 Follow up: Response: No adverse reaction; IV Status: Completed infusion; IV Intake: sv 1000ml Intake: 12:20 IV: 1000ml; Total: 1000ml. sv Outcome: 12:43 Discharge ordered by . gs 13:42 Discharged to home via wheelchair. sv 13:42 Condition: stable 13:42 Discharge instructions given to patient, Instructed on discharge instructions, follow up and referral plans. Demonstrated understanding of instructions, follow-up care. 13:43 Patient left the ED. sv Signatures: Dispatcher [employer] EDMS Elisa Zhong RN RN sv Harvey, Martha 1 Sanjay Marroquin hi Braydon Mejia MD MD
--- NOTE | 2017-11-20 13:25 | RAD REPORT ---
EXAM DESCRIPTION: RAD - Tib Fib Right - 11/20/2017 1:04 pm CLINICAL HISTORY: Leg trauma, on witnessed injury COMPARISON: None. FINDINGS: No fracture is identified. There is no dislocation or periosteal reaction noted. No acute or suspicious bony finding. No air or foreign body in the soft tissues. No suspicious soft tissue finding. There is edema or cont usion change anteromedial leg in the midshaft region. Arterial calcifications are present. IMPRESSION: Edema and/ or contusion changes in the mid leg soft tissues. No air or foreign body. No acute bone finding.
[2017-11-20 13:47] VITALS: TEMP 98.2
[2017-11-20 13:48] VITALS: BP 118/79; O2SAT 100
== END 2017-11-20 13:43 | disposition home or self-care (01) ==
LOC: ER 11:16
DX: S80.11XA Contusion of right lower leg, initial encounter (principal); F10.20 Alcohol dependence, uncomplicated; F31.9 Bipolar disorder, unspecified; Z85.07 Personal history of malignant neoplasm of pancreas; Z88.6 Allergy status to analgesic agent
CPT/HCPCS: 36415; 70450; 72125; 80048; 85025; 96360; 99284; J7030

== ENCOUNTER 2017-12-12 21:47 | Emergency (ER) | payer SELFPAY ==
[2011-10-24 19:41] VITALS: BP 138/81
[2017-12-12 22:13] LABS: Absolute Monocytes 0.6 K/uL (0.1-1.3); Absolute Neutrophil 1.5 K/uL (1.8-8.0); Basophils % 2.6 % (0-1.3); Eosinophils % 1.1 % (0-4.4); Lymphocytes % 29.9 % (15.3-44.8); MCH 32.5 pg (27.0-35.0); MCV 95.3 fL (80-100); MPV 7.5 fL (7.6-11.3); Monocytes % 19.6 % (3.3-12.3); RBC Red Blood Cell Count 3.47 M/uL (4.33-5.43)
[2017-12-12 22:26] LABS: Protime INR 0.98
[2017-12-12 22:46] LABS: ALT/SGPT 86 U/L (12-78); AST/SGOT 285 U/L (15-37); Albumin 3.5 g/dL (3.4-5.0); Alkaline Phosphatase 248 U/L (45-117); BUN Blood Urea Nitrogen 5 mg/dL (7-18); Bicarbonate 24 mmol/L (21-32); Bilirubin Direct 0.4 mg/dL (0-0.2); Bilirubin Total 0.7 mg/dL (0.2-1.0); Glucose Level 132 mg/dL (74-106); Potassium 3.3 mmol/L (3.5-5.1); Protein, Total 7.7 g/dL (6.4-8.2); Sodium Level 134 mmol/L (136-145)
[2017-12-13 00:21] LABS: Blood Morphology Comment NOT SEEN (NOT SEEN); Platelet Estimate ADEQ
[2017-12-13 00:39] LABS: Urine Blood NEGATIVE (NEG); Urine Glucose TRACE (NEG); Urine Protein NEGATIVE (NEG); Urine pH 6.5 (5.0-7.0)
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
--- NOTE | 2017-12-13 08:55 | RAD REPORT ---
EXAM DESCRIPTION: CT - [id number] - 12/13/2017 4:10 am CLINICAL HISTORY: Seizure, fall, head and neck injury A preliminary written report was provided at the time of the study, and the report was reviewed prio r to final dictation. COMPARISON: CT head and cervical November 20, 2017 TECHNIQUE: Axial 5 mm thick images of the head were obtained. Axial 2 mm thick images of the cervic al spine were obtained with sagittal and coronal reconstruction images generated and reviewed. All CT scans are performed using dose optimization technique as appropriate and may include automated exposure control or mA/KV adjustment according to patient size. FINDINGS: No intracranial hemorrhage, mass, edema or acute intracranial finding. No acute cortical b ased infarction. No cortical edema or sulcal effacement. Patient has advanced for age atrophy that is stable. Ventricles do appear to be in proportion to the amount of volume loss. No extra-axial fluid collections. Mastoid air cells and paranasal sinuses are clear. No globe or orbit abnormality seen. N o acute orbital findings suspected. Cervical body height and alignment are normal. No new disc finding since prior imaging. No fracture o r acute bony abnormality. Extensive anterior endplate spurring and bridging ossification present. Thi s degenerative pattern, probably diffuse idiopathic skeletal hyperostosis (DISH), has not changed ove r the short interval. No paraspinal mass or hematoma. Central canal detail is inherently limited. IMPRESSION: Stable but advanced for age atrophy with no hemorrhage or acute intracranial finding. Stable but advanced for age degenerative change with no acute finding. No change from the short inter akila 11/20/2017 study.
--- NOTE | 2017-12-14 06:54 | EKG ---
Test Date: 2017-12-12 Test Time: 22:32:43 Blending Coordinator: TIFFANIE MEASUREMENT RESULTS: Intervals: Rate: 73 MS: 200 QRSD: 86 QT: 364 QTc: 401 [place]: P: 53 MS: 200 QRS: 33 T: 36 INTERPRETIVE STATEMENTS: Normal sinus rhythm Normal ECG Compared to ECG 11/17/2017 19:15:06 No significant changes Electronically Signed On 12-14-17 06:53:40 CDT by Barron Kumar
== END 2017-12-13 03:24 | disposition home or self-care (01) ==
LOC: ER 21:47
DX: G40.909 Epilepsy, unspecified, not intractable, without status epilepticus (principal); F10.20 Alcohol dependence, uncomplicated; G20 Parkinson's disease; Z85.07 Personal history of malignant neoplasm of pancreas; Z88.6 Allergy status to analgesic agent
CPT/HCPCS: 36415; 70450; 72125; 80048; 80076; 80329; 81003; 85025; 85610; 85730; 93005; 99284

== ENCOUNTER 2018-02-07 21:51 | Emergency (ER) | payer SELFPAY ==
[2018-02-07] MEDS ORDERED: NA CHLORIDE 0.9% 1,000 ML ONE (22:33)
[2018-02-07] MEDS ORDERED: ONDANSETRON 4 MG/2 ML VIAL ONE (22:33)
[2018-02-07 22:39] LABS: Absolute Lymphocytes (CBC) 0.3 K/uL (0.7-4.9); Absolute Monocytes 0.6 K/uL (0.1-1.3); Absolute Neutrophil 5.1 K/uL (1.8-8.0); Basophils % 0.3 % (0-1.3); Hematocrit 39.8 % (39.6-49.0); Lymphocytes % 5.5 % (15.3-44.8); MCH 34.2 pg (27.0-35.0); MPV 7.4 fL (7.6-11.3); RBC Red Blood Cell Count 4.06 M/uL (4.33-5.43)
[2018-02-07 23:01] LABS: BUN Blood Urea Nitrogen 8 mg/dL (7-18); Bicarbonate 31 mmol/L (21-32); Glucose Level 227 mg/dL (74-106); Sodium Level 133 mmol/L (136-145)
[2018-02-08 00:34] LABS: Urine Blood TRACE (NEG); Urine Glucose 3+ (NEG); Urine Protein 1+ (NEG); Urine Specific Gravity 1.025 (1.005-1.030); Urine pH 5.5 (5.0-7.0)
[2018-02-08] MEDS ORDERED: NA CHLORIDE 0.9% 1,000 ML ONE (01:59)
--- NOTE | 2018-02-08 02:04 | EDPHYS ---
Physician Documentation [facility] Name: Walt Velazquez Age: 47 yrs Sex: Male : 1970 Arrival Date: 02/07/2018 Time: 21:53 Bed 18 Private MD: ED Physician Sulaiman Hawkins HPI: 02/08 00:08 This 47 yrs old Male presents to ER via EMS with complaints of nausea/vomiting.jr8 00:08 The patient presents to the emergency department with nausea, vomiting. Onset: The jr8 symptoms/episode began/occurred acutely, today. Possible causes: unknown. The symptoms are aggravated by nothing. The symptoms are alleviated by nothing. Associated signs and symptoms: The patient has no apparent associated signs or symptoms. Severity of symptoms: At their worst the symptoms were moderate in the emergency department the symptoms are unchanged. The patient has not experienced similar symptoms in the past. The patient has not recently seen a physician. Historical: - Allergies: 02/07 21:56 Trazodone; jd3 - Home Meds: 21:56 Dilantin Oral 100 mg three times a day [Active]; not taking any of his home medications jd3 now [Active]; Risperdal Oral once daily [Active]; Ritalin Oral [Active]; - PMHx: 21:56 Alcoholism; Bipolar disorder; DT; pancreatic cancer; Parkinsons; Seizures; jd3 - Immunization history:: Adult Immunizations unknown. - Social history:: Smoking status: unknown. - Ebola Screening: : Patient negative for fever greater than or equal to 101.5 degrees Fahrenheit, and additional compatible Ebola Virus Disease symptoms. ROS: 02/08 00:08 Eyes: Negative for injury, pain, redness, and discharge, ENT: Negative for injury, jr8 pain, and discharge, Neck: Negative for injury, pain, and swelling, Cardiovascular: Negative for chest pain, palpitations, and edema, Respiratory: Negative for shortness of breath, cough, wheezing, and pleuritic chest pain, Back: Negative for injury and pain, MS/Extremity: Negative for injury and deformity, Skin: Negative for injury, rash, and discoloration, Neuro: Negative for headache, weakness, numbness, tingling, and seizure. Abdomen/GI: Positive for nausea and vomiting, Negative for abdominal pain, diarrhea, constipation, abdominal cramps, abdominal distension, anorexia, dysphagia, hematemesis, black/tarry stool, rectal pain, rectal bleeding, bowel incontinence, flatulence. Exam: 00:08 Eyes: Pupils equal round and reactive to light, extra-ocular motions intact. Lids and jr8 lashes normal. Conjunctiva and sclera are non-icteric and not injected. Cornea within normal limits. Periorbital areas with no swelling, redness, or edema. ENT: Nares patent. No nasal discharge, no septal abnormalities noted. Tympanic membranes are normal and external auditory canals are clear. Oropharynx with no redness, swelling, or masses, exudates, or evidence of obstruction, uvula midline. Mucous membranes moist. Neck: Trachea midline, no thyromegaly or masses palpated, and no cervical lymphadenopathy. Supple, full range of motion without nuchal rigidity, or vertebral point tenderness. No Meningismus. Cardiovascular: Regular rate and rhythm with a normal S1 and S2. No gallops, murmurs, or rubs. Normal PMI, no JVD. No pulse deficits. Respiratory: Lungs have equal breath sounds bilaterally, clear to auscultation and percussion. No rales, rhonchi or wheezes noted. No increased work of breathing, no retractions or nasal flaring. Abdomen/GI: Soft, non-tender, with normal bowel sounds. No distension or tympany. No guarding or rebound. No evidence of tenderness throughout. Back: No spinal tenderness. No costovertebral tenderness. Full range of motion. Skin: Warm, dry with normal turgor. Normal color with no rashes, no lesions, and no evidence of cellulitis. MS/ Extremity: Pulses equal, no cyanosis. Neurovascular intact. Full, normal range of motion. Neuro: Awake and alert, GCS 15, oriented to person, place, time, and situation. Cranial nerves II-XII grossly intact. Motor strength 5/5 in all extremities. Sensory grossly intact. Cerebellar exam normal. Normal gait. Vital Signs: 02/07 21:56 BP 158 / 109; Pulse 98; Resp 18 S; Temp 98.3(O); Pulse Ox 98% on R/A; Weight 63.5 kg jd3 (R); Height 5 ft. 3 in. (160.02 cm) (R); Pain 8/10; 22:40 BP 136 / 77; Pulse 80; Resp 18 S; Pulse Ox 100% on R/A; jd3 23:43 BP 148 / 77; Pulse 78; Resp 17 S; Pulse Ox 100% on R/A; jd3 02/08 00:30 BP 153 / 98; Pulse 73; Resp 17 S; Pulse Ox 100% on R/A; jd3 01:10 BP 156 / 101; Pulse 74; Resp 17 S; Pulse Ox 100% on R/A; jd3 02:05 BP 146 / 101; Pulse 81; Resp 17 S; Pulse Ox 100% on R/A; jd3 03:36 BP 118 / 82; Pulse 67; Resp 18; Temp 98; Pulse Ox 100% ; Pain 0/10; ea 02/07 21:56 Body Mass Index 24.80 (63.50 kg, 160.02 cm) [facility] MDM: 02/07 21:59 Patient medically screened. [facility] 02/08 01:23 Data reviewed: vital signs, nurses notes, lab test result(s), EKG, radiologic studies, [facility] CT scan, plain films. Data interpreted: Pulse oximetry: on room air is 100 %. Interpretation: normal. Counseling: I had a detailed discussion with the patient and/or guardian regarding: the historical points, exam findings, and any diagnostic results supporting the discharge/admit diagnosis, lab results, radiology results, the need for outpatient follow up, a family practitioner, a head operator sulfide, to return to the emergency department if symptoms worsen or persist or if there are any questions or concerns that arise at home. ED course: Patient without abdominal pain. No vomiting while in ED. Explained to him that his calcium was elevated. That he needs to f/u with PCP for further evaluation of this. Has been hydrated here well with NS. Has been asymptomatic here. No findings of malignancy. To see GI for gallbladder wall thickening. Reevaluated abdomen and without tenderness to epigastrium or RUQ abdomen . 02/07 21:59 Order name: CBC with Diff; Complete Time: 22:58 [facility] 02/07 21:59 Order name: Basic Metabolic Panel; Complete Time: 23:05 [facility] 02/07 23:05 Order name: Pth,Intact; Complete Time: 02:23 [facility] 02/07 23:35 Order name: XRAY Chest (1 view) [facility] 02/07 23:36 Order name: CT Abd/Pelvis - W/Contrast [facility] 02/08 00:00 Order name: Urine Dipstick--Ancillary (enter results); Complete Time: 00:35 ms 02/07 21:59 Order name: IV; Complete Time: 22:27 jr8 02/07 21:59 Order name: Urine Dipstick-Ancillary (obtain specimen); Complete Time: 00:26 jr8 02/08 00:10 Order name: EKG - Nurse/Tech; Complete Time: 01:09 8 02/08 01:14 Order name: EKG; Complete Time: 01:15 jd3 Administered Medications: 02/07 22:32 Drug: NS 0.9% 1000 ml Route: IV; Rate: 1000 ml; Site: right antecubital; jd3 23:45 Follow up: Response: No adverse reaction; IV Status: Completed infusion; IV Intake: jd3 1000ml 22:33 Drug: Zofran 4 mg Route: IVP; Site: right antecubital; jd3 23:30 Follow up: Response: No adverse reaction [facility] 02/08 01:56 Drug: NS 0.9% 1000 ml Route: IV; Rate: 1 bolus; Site: right antecubital; jd3 03:35 Follow up: Response: No adverse reaction; IV Status: Completed infusion; IV Intake: ea 1000ml Disposition: 06:54 Co-signature as Attending Physician, Sulaiman Hawkins MD I agree with the assessment and ps1 plan of care. Disposition: 02/08/18 02:04 Discharged to Home. Impression: Hypercalcemia. - Condition is Stable. - Discharge Instructions: Hypercalcemia. - Medication Reconciliation Form, Thank You Letter, Antibiotic Education, Prescription Opioid Use form. - Follow up: Rachell Fisher MD; When: 2 - 3 days; Reason: Recheck today's complaints, Continuance of care, Re-evaluation by your physician. - Problem is new. - Symptoms have improved. Signatures: Dispatcher [employer] EDMS Rigo Cherry PA PA ysabel Josiane Gant RN Oliver Herzog ea, RN RN jd3 Singer, Phillip, MD MD ps1 Corrections: (The following items were deleted from the chart) 01:54 01:23 ED course: Patient without abdominal pain. No vomiting while in ED. Explained to ysabel him that his calcium was elevated. That he needs to f/u with PCP for further evaluation of this. To see GI for gallbladder wall thickening. Reevaluated abdomen and without tenderness to epigastrium or RUQ abdomen . jr8 03:50 02:04 02/08/2018 02:04 Discharged to Home. Impression: Hypercalcemia. Condition is ea Stable. Forms are Medication Reconciliation Form, Thank You Letter, Antibiotic Education, Prescription Opioid Use. Follow up: Rachell Fisher; When: 2 - 3 days; Reason: Recheck today's complaints, Continuance of care, Re-evaluation by your physician. Problem is new. Symptoms have improved. jr8
--- NOTE | 2018-02-08 02:04 | ER ---
Nurse's Notes [facility] Name: Walt Velazquez Age: 47 yrs Sex: Male : 1970 Arrival Date: 02/07/2018 Time: 21:53 Bed 18 Private MD: Diagnosis: Hypercalcemia Presentation: 02/07 21:53 Presenting complaint: EMS states: "pt has a complaint of nausea and vomiting since this jd3 morning as well as difficulty urinating." pt reports not being able to keep anything down. Transition of care: patient was not received from another setting of care. Onset of symptoms was February 07, 2018. Risk Assessment: Do you want to hurt yourself or someone else? Patient reports no desire to harm self or others. Initial Sepsis Screen: Does the patient meet any 2 criteria? HR > 90 bpm. No. Patient's initial sepsis screen is negative. Does the patient have a suspected source of infection? No. Patient's initial sepsis screen is negative. Care prior to arrival: None. 21:53 Method Of Arrival: EMS: [facility] jd3 21:53 Acuity: LATASHA 3 jd3 Historical: - Allergies: 21:56 Trazodone; jd3 - Home Meds: 21:56 Dilantin Oral 100 mg three times a day [Active]; not taking any of his home medications jd3 now [Active]; Risperdal Oral once daily [Active]; Ritalin Oral [Active]; - PMHx: 21:56 Alcoholism; Bipolar disorder; DT; pancreatic cancer; Parkinsons; Seizures; jd3 - Immunization history:: Adult Immunizations unknown. - Social history:: Smoking status: unknown. - Ebola Screening: : Patient negative for fever greater than or equal to 101.5 degrees Fahrenheit, and additional compatible Ebola Virus Disease symptoms. Screenin:00 Abuse screen: Denies threats or abuse. Nutritional screening: No deficits noted. jd3 Tuberculosis screening: No symptoms or risk factors identified. Fall Risk Ambulatory Aid- None/Bed Rest/Nurse Assist (0 pts). Gait- Weak (10 pts.). Mental Status- Oriented to own ability (0 pts). Total Cadena Fall Scale indicates No Risk (0-24 pts). Assessment: 21:57 General: Appears uncomfortable, Behavior is cooperative, appropriate for age, anxious. jd3 Pain: Complains of pain in abdomen Pain currently is 8 out of 10 on a pain scale. Quality of pain is described as sharp, Also complains of nausea. Neuro: Level of Consciousness is awake, alert, obeys commands, Oriented to person, place, time, situation. Cardiovascular: Heart tones S1 S2 present Capillary refill < 3 seconds Patient's skin is warm and dry. Respiratory: Airway is patent Respiratory effort is even, unlabored, Respiratory pattern is regular, symmetrical, Denies cough, shortness of breath. GI: Abdomen is flat, Bowel sounds present X 4 quads. Abd is soft Abdomen is tender to palpation in right upper quadrant and right lower quadrant Reports nausea, vomiting. : Reports difficulty voiding. EENT: No signs and/or symptoms were reported regarding the EENT system. Derm: Skin is intact, Skin is dry, Skin is normal, Skin temperature is warm. Musculoskeletal: Circulation, motion, and sensation intact. Range of motion: intact in all extremities. 22:41 Reassessment: Patient appears in no apparent distress at this time. No changes from jd3 previously documented assessment. Patient and/or family updated on plan of care and expected duration. Pain level reassessed. Patient is alert, oriented x 3, equal unlabored respirations, skin warm/dry/pink. 23:43 Reassessment: Patient appears in no apparent distress at this time. No changes from jd3 previously documented assessment. Patient and/or family updated on plan of care and expected duration. Pain level reassessed. Patient is alert, oriented x 3, equal unlabored respirations, skin warm/dry/pink. 02/08 00:30 Reassessment: Patient appears in no apparent distress at this time. No changes from jd3 previously documented assessment. Patient and/or family updated on plan of care and expected duration. Pain level reassessed. Patient is alert, oriented x 3, equal unlabored respirations, skin warm/dry/pink. 01:10 Reassessment: Patient appears in no apparent distress at this time. Patient and/or jd3 family updated on plan of care and expected duration. Pain level reassessed. Patient is alert, oriented x 3, equal unlabored respirations, skin warm/dry/pink. 02:04 Reassessment: Patient appears in no apparent distress at this time. No changes from jd3 previously documented assessment. Patient and/or family updated on plan of care and expected duration. Pain level reassessed. Patient is alert, oriented x 3, equal unlabored respirations, skin warm/dry/pink. pt resting in bed. waiting for IV fluids to infuse before pt is discharged. 03:46 Reassessment: Patient and/or family updated on plan of care and expected duration. Pain ea level reassessed. Patient is alert, oriented x 3, equal unlabored respirations, skin warm/dry/pink. Discharge instructions given to patient, verbalized the understanding of instruction. Patient states feeling better. Patient states symptoms have improved. Vital Signs: 02/07 21:56 BP 158 / 109; Pulse 98; Resp 18 S; Temp 98.3(O); Pulse Ox 98% on R/A; Weight 63.5 kg jd3 (R); Height 5 ft. 3 in. (160.02 cm) (R); Pain 8/10; 22:40 BP 136 / 77; Pulse 80; Resp 18 S; Pulse Ox 100% on R/A; jd3 23:43 BP 148 / 77; Pulse 78; Resp 17 S; Pulse Ox 100% on R/A; jd3 02/08 00:30 BP 153 / 98; Pulse 73; Resp 17 S; Pulse Ox 100% on R/A; jd3 01:10 BP 156 / 101; Pulse 74; Resp 17 S; Pulse Ox 100% on R/A; jd3 02:05 BP 146 / 101; Pulse 81; Resp 17 S; Pulse Ox 100% on R/A; jd3 03:36 BP 118 / 82; Pulse 67; Resp 18; Temp 98; Pulse Ox 100% ; Pain 0/10; ea 02/07 21:56 Body Mass Index 24.80 (63.50 kg, 160.02 cm) [facility] ED Course: 02/07 21:53 Patient arrived in ED. jd3 21:55 Triage completed. jd3 21:57 Arm band placed on. jd3 21:59 Rigo Cherry PA is PHCP. jr8 21:59 Sulaiman Hawkins MD is Attending Physician. jr8 22:00 Patient has correct armband on for positive identification. Bed in low position. Call [facility] light in reach. Side rails up X2. 22:03 Oliver Thomas RN is Primary Nurse. jd3 22:27 Basic Metabolic Panel Sent. jd3 22:27 CBC with Diff Sent. jd3 23:58 X-ray completed. Portable x-ray completed in exam room. Patient tolerated procedure kw well. 23:59 XRAY Chest (1 view) In Process Unspecified. EDNY 02/08 00:33 CT Abd/Pelvis - W/Contrast In Process Unspecified. EDNY 00:42 CT completed. Patient tolerated procedure well. Patient moved back from CT. 00:[address] via stretcher. 02:03 Rachell Fisher MD is Referral Physician. jr8 03:48 No provider procedures requiring assistance completed. IV discontinued, intact, ea bleeding controlled, No redness/swelling at site. Pressure dressing applied. Administered Medications: 02/07 22:32 Drug: NS 0.9% 1000 ml Route: IV; Rate: 1000 ml; Site: right antecubital; jd3 23:45 Follow up: Response: No adverse reaction; IV Status: Completed infusion; IV Intake: jd3 1000ml 22:33 Drug: Zofran 4 mg Route: IVP; Site: right antecubital; jd3 23:30 Follow up: Response: No adverse reaction j 02/08 01:56 Drug: NS 0.9% 1000 ml Route: IV; Rate: 1 bolus; Site: right antecubital; jd3 03:35 Follow up: Response: No adverse reaction; IV Status: Completed infusion; IV Intake: ea 1000ml Intake: 02/07 23:45 IV: 1000ml; Total: 1000ml. j 02/08 03:35 IV: 1000ml; Total: 2000ml. ea Outcome: 02:04 Discharge ordered by . jr8 03:49 Discharged to [facility] awaiting on transportation. ea 03:49 Condition: improved 03:49 Discharge instructions given to patient, Instructed on discharge instructions, follow up and referral plans. Demonstrated understanding of instructions, follow-up care. 03:50 Patient left the ED. ea Signatures: Dispatcher [employer] [facility] Aristeo Solano Yamilka Haddad Josh, PA PA jr8 Josiane Gant RN RN ea Davies, Jonathon, RN RN jd3 Corrections: (The following items were deleted from the chart) 00:53 00:[address] via wheelchair. eh eh
[2018-02-08 03:56] VITALS: O2SAT 100
[2018-02-08 04:01] VITALS: BP 118/82; TEMP 98
--- NOTE | 2018-02-08 07:50 | EKG ---
Test Date: 2018-02-08 Test Time: 00:52:50 Forensic Manager: MELVA MEASUREMENT RESULTS: Intervals: Rate: 81 AL: 196 QRSD: 78 QT: 372 QTc: 432 [place]: P: 66 AL: 196 QRS: 55 T: 58 INTERPRETIVE STATEMENTS: Normal sinus rhythm Normal ECG Compared to ECG 12/12/2017 22:32:43 No significant changes Electronically Signed On 02-08-18 07:49:29 CDT by Barron Kumar
--- NOTE | 2018-02-08 08:29 | RAD REPORT ---
EXAM DESCRIPTION: CT - Abdomen Pelvis W Contrast - 02/08/2018 7:03 am CLINICAL HISTORY: Abdominal pain with nausea and vomiting COMPARISON: June 2016 TECHNIQUE: Computed axial tomography of the abdomen pelvis was obtained. 100 cc Isovue-300 was admin istered intravenously. Oral contrast was not requested which limits evaluation of bowel.A preliminary report was generated by [employer] and reviewed prior to this dictation All CT scans are performed using dose optimization technique as appropriate and may include automated exposure control or mA/KV adjustment according to patient size. FINDINGS: Fatty infiltration of liver is seen. Spleen, adrenal and kidneys appear unremarkable. Sub centimeter ill-defined low density area within the pancreas appears less prominent. Enhancement of the gallbladder wall is seen with borderline thickening. There is no evidence of diverticulitis. The appendix is normal IMPRESSION: Enhancement of the gallbladder wall with borderline wall thickening. This is nonspecific but could be seen with cholecystitis. If clinically indicated an ultrasound be obtained Fatty infiltration of liver Subcentimeter ill-defined low-density area within the pancreas appears less prominent
--- NOTE | 2018-02-08 08:44 | RAD REPORT ---
EXAM DESCRIPTION: [place] Single View02/07/2018 11:59 pm CLINICAL HISTORY: Cough COMPARISON: October 2017 FINDINGS: The lungs appear clear of acute infiltrate. The heart is normal size IMPRESSION: No acute abnormalities displayed
== END 2018-02-08 03:50 | disposition home or self-care (01) ==
LOC: ER 21:51
DX: E83.52 Hypercalcemia (principal); G20 Parkinson's disease; F31.9 Bipolar disorder, unspecified; G40.909 Epilepsy, unspecified, not intractable, without status epilepticus; Z85.07 Personal history of malignant neoplasm of pancreas; Z88.5 Allergy status to narcotic agent
CPT/HCPCS: 36415; 71045; 74177; 80048; 81003; 83970; 85025; 93005; 96361; 96374; 99284; J2405; J7030; Q9967

== ENCOUNTER 2018-02-23 18:07 | Emergency (ER) | payer SELFPAY ==
--- NOTE | 2018-02-23 18:35 | RAD REPORT ---
EXAM DESCRIPTION: CT - Head Brain Wo Cont - 02/23/2018 6:29 pm CLINICAL HISTORY: Fall, head injury, seizure like activity COMPARISON: CT head November 17 TECHNIQUE: Axial 5 mm thick images of the head were obtained without IV contrast. All CT scans are performed using dose optimization technique as appropriate and may include automated exposure control or mA/KV adjustment according to patient size. FINDINGS: No intracranial hemorrhage, mass, edema or shift of mid-line structures. No acute infarcti on changes seen. Moderate atrophy and chronic ischemic changes are present. Ventricular size is in pr oportion. Intracranial findings are similar to the comparison. Old medial wall left orbit fracture ch anges noted. This is not clinically significant. Mastoid air cells and visualized portions of the paranasal sinuses are clear. No acute bony findings. IMPRESSION: Negative non-contrast CT head examination for acute finding. Prominent atrophy and chronic ischemic change similar to comparison.
[2018-02-23] MEDS ORDERED: NA CHLORIDE 0.9% 1,000 ML ONE ×2 (18:53→19:13)
[2018-02-23] MEDS ORDERED: FAMOTIDINE 20 MG/2 ML VIAL IV ONE (18:53)
[2018-02-23] MEDS ORDERED: THIAMINE 200 MG/2 ML INJ IV ONE (19:00)
[2018-02-23 19:03] LABS: Absolute Lymphocytes (CBC) 1.2 K/uL (0.7-4.9); Absolute Monocytes 0.7 K/uL (0.1-1.3); Absolute Neutrophil 4.4 K/uL (1.8-8.0); Basophils % 1.2 % (0-1.3); Eosinophils % 0.7 % (0-4.4); Hematocrit 36.6 % (39.6-49.0); Lymphocytes % 18.4 % (15.3-44.8); MCH 34.3 pg (27.0-35.0); MCV 100.8 fL (80-100); MPV 6.9 fL (7.6-11.3); Monocytes % 10.3 % (3.3-12.3); RBC Red Blood Cell Count 3.63 M/uL (4.33-5.43)
[2018-02-23 19:07] LABS: Protime INR 1.03
--- NOTE | 2018-02-23 19:09 | RAD REPORT ---
EXAM DESCRIPTION: RAD - Chest Single View - 02/23/2018 6:42 pm CLINICAL HISTORY: Fall, chest pain, cough COMPARISON: February 07, 2018 TECHNIQUE: AP portable chest image was obtained 1837 hours . FINDINGS: No infiltrate, mass, failure or pulmonary contusion. Lung markings are similar to the comp arison. Trachea is midline. Heart and vasculature are normal. No measurable pleural effusion and no p neumothorax. No gross bony abnormality seen. No acute aortic findings suspected. IMPRESSION: No acute cardiopulmonary process. No significant interval change.
[2018-02-23] MEDS ORDERED: THIAMINE 200 MG/2 ML INJ ONE (19:11)
[2018-02-23] MEDS ORDERED: MULTIVITAMINS 10 ML VIAL (INJ) IV ONE (19:12)
[2018-02-23] MEDS ORDERED: FOLIC ACID 5 MG/ML VIAL ONE (19:13)
[2018-02-23 19:19] LABS: ALT/SGPT 65 U/L (12-78); AST/SGOT 82 U/L (15-37); Albumin 3.2 g/dL (3.4-5.0); Alkaline Phosphatase 155 U/L (45-117); BUN Blood Urea Nitrogen 7 mg/dL (7-18); Bicarbonate 27 mmol/L (21-32); Bilirubin Direct 0.2 mg/dL (0-0.2); Bilirubin Total 0.4 mg/dL (0.2-1.0); CKMB Creatine Kinase MB 1.7 ng/mL (0.3-3.6); Creatine Phosphokinase 99 U/L (39-308); Glucose Level 117 mg/dL (74-106); Magnesium 1.7 mg/dL (1.8-2.4); NT PRO-BNP 50 pg/mL (<125); Potassium 3.5 mmol/L (3.5-5.1); Protein, Total 6.7 g/dL (6.4-8.2); Sodium Level 144 mmol/L (136-145); Troponin (Emerg Dept Use Only) 0.02 ng/mL (0.0-0.045)
--- NOTE | 2018-02-23 19:24 | ER ---
Nurse's Notes [facility] Name: Walt Velazquez Age: 47 yrs Sex: Male : 1970 Arrival Date: 02/23/2018 Time: 18:08 Bed 15 Private MD: Diagnosis: Weakness;Alcohol abuse;Alcohol abuse with intoxication;Hypomagnesemia Presentation: 02/23 18:00 Presenting complaint: EMS states: Pt. is A \T\ O x 4 fell yesterday and went to [place] [id number] ED and they discharged him saying he had a seizure. Pt. has history of seizures and parkison's. Allergy to Trazodone. V/S were stable. Onset of symptoms is unknown. Risk Assessment: Do you want to hurt yourself or someone else? Patient reports no desire to harm self or others. Initial Sepsis Screen: Does the patient meet any 2 criteria? No. Patient's initial sepsis screen is negative. Does the patient have a suspected source of infection? No. Patient's initial sepsis screen is negative. Care prior to arrival: None. 18:00 Method Of Arrival: EMS: [facility] 18:00 Acuity: LATASHA 3 rb1 18:00 Transition of care: patient was not received from another setting of care. [facility] Triage Assessment: 18:00 General: Appears in no apparent distress. comfortable, unkempt, Behavior is calm, rb1 cooperative, Denies fever. Pain: Complains of pain in right leg and left leg Pain currently is 8 out of 10 on a pain scale. Neuro: Level of Consciousness is awake, alert, obeys commands, Oriented to person, place, time, situation, Reports weakness in generalized. Cardiovascular: Capillary refill < 3 seconds is brisk in bilateral fingers. Respiratory: Airway is patent Respiratory effort is even, unlabored, Respiratory pattern is regular, symmetrical. GI: No signs and/or symptoms were reported involving the gastrointestinal system. : No signs and/or symptoms were reported regarding the genitourinary system. Derm: Skin is dry, Skin is normal, Skin temperature is warm. Historical: - Allergies: 18:00 Trazodone; rb1 - Home Meds: 18:00 Dilantin Oral 100 mg three times a day [Active]; Risperdal Oral once daily [Active]; rb1 Ritalin Oral [Active]; - PMHx: 18:00 Alcoholism; Bipolar disorder; DT; pancreatic cancer; Parkinsons; Seizures; rb1 - PSHx: 18:00 None; rb1 - Immunization history:: Adult Immunizations up to date. - Social history:: Smoking status: Patient/guardian denies using tobacco. - Ebola Screening: : Patient negative for fever greater than or equal to 101.5 degrees Fahrenheit, and additional compatible Ebola Virus Disease symptoms. - Family history:: pertinent for not pertinent. Screenin:00 Abuse screen: Denies threats or abuse. Nutritional screening: No deficits noted. rb1 Tuberculosis screening: No symptoms or risk factors identified. Fall Risk Fall in past 12 months (25 points). Secondary diagnosis (15 points) seizures, No IV (0 pts). Ambulatory Aid- None/Bed Rest/Nurse Assist (0 pts). Gait- Weak (10 pts.). Mental Status- Oriented to own ability (0 pts). Total Cadena Fall Scale indicates High Risk Score (45 or more points). Fall prevention measures have been instituted. Side Rails Up X 2 Placed Close to Nursing Station 1:1 Attendant Assigned Frequent Obs/Assessments Occuring Family Present and informed to notify staff if the need to leave the bedside As available patient and family educated on Fall Prevention Program and Strategies. Assessment: 18:00 General: See triage assessment. rb1 18:26 Reassessment: pt. went to CT. rb1 19:10 General: Appears in no apparent distress. comfortable, Behavior is calm, cooperative, ao appropriate for age. Pain: Denies pain. Neuro: Level of Consciousness is awake, alert, obeys commands, Oriented to person, place, time, situation, Appropriate for age Moves all extremities. Full function Speech is normal, Facial symmetry appears normal. Cardiovascular: Capillary refill < 3 seconds Patient's skin is warm and dry. Respiratory: Airway is patent Respiratory effort is even, unlabored, Respiratory pattern is regular, symmetrical. GI: Abdomen is non-distended. : No signs and/or symptoms were reported regarding the genitourinary system. EENT: No signs and/or symptoms were reported regarding the EENT system. Derm: Skin is intact, Skin is pink, warm \T\ dry. normal, Skin temperature is warm. Musculoskeletal: Range of motion: intact in all extremities, Parent/caregiver report the patient having Shakiness. 19:24 Reassessment: Patient DC pending as patient to get Magnesium over to hours. ao 20:49 Reassessment: Continue to monitoring patient. Provided with two sandwich and patient ao vomited about 50 ml Emesis. Patient was medicated with Zofran IV. No other complications. waiting on Magnesium to be complete to discharge patient home. 21:46 Reassessment: DC instructions given to patient. Patient agree to follow up and get a ao prescriptions of multivitamins. Patient agree with rehab program in alcoholism. Vital Signs: 18:00 BP 119 / 82; Pulse 96; Resp 17; Temp 98.5(O); Pulse Ox 98% on R/A; Weight 63.5 kg (R); rb1 Height 5 ft. 3 in. (160.02 cm) (R); Pain 8/10; 19:20 BP 124 / 84; Pulse 96; Resp 16; Pulse Ox 98% ; ao 20:52 BP 112 / 76; Pulse 88; Resp 18; Pulse Ox 97% on R/A; ao 18:00 Body Mass Index 24.80 (63.50 kg, 160.02 cm) rb1 ED Course: 18:00 Arm band placed on right wrist. rb1 18:00 Patient has correct armband on for positive identification. Bed in low position. Call rb1 light in reach. Side rails up X2. Pulse ox on. NIBP on. 18:08 Patient arrived in ED. rb1 18:11 Deandre Mckeon MD is Attending Physician. [facility] 18:12 Triage completed. rb1 18:26 Sofia Huber, RN is Primary Nurse. rb1 18:30 CT Head Brain wo Cont In Process Unspecified. EDMS 18:42 XRAY Chest (1 view) In Process Unspecified. EDMS 18:52 Initial lab(s) drawn, by mi, sent to lab. EKG done, by ED staff, reviewed by Deandre Mckeon MD. Inserted saline lock: 22 gauge in right antecubital area, using aseptic technique. Blood collected. 19:00 Report given to ROBERTO Heard. rb1 20:52 No provider procedures requiring assistance completed. ao 21:45 IV discontinued, intact, bleeding controlled, No redness/swelling at site. Pressure ao dressing applied. Administered Medications: 18:40 Drug: NS 0.9% 1000 ml Route: IV; Rate: 1 bolus; Site: right antecubital; rb1 20:55 Follow up: IV Status: Completed infusion; IV Intake: 1000ml ao 18:40 Drug: Pepcid 20 mg Route: IVP; Site: right antecubital; rb1 20:56 Follow up: Response: No adverse reaction ao 19:18 Drug: Thiamine 100 mg Route: IV; Rate: bolus; Site: right antecubital; ao 20:56 Follow up: IV Status: Completed infusion ao 19:18 Drug: Banana Bag - (NS 0.9% 1000 ml, foLIC Acid 1 mg, Thiamine 100 mg, Multivitamin 1 ao amp) Route: IV; Rate: 200 ml/hr; Site: right antecubital; 21:30 Follow up: IV Status: Completed infusion; IV Intake: 1000ml ao 19:34 Drug: Magnesium Sulfate 2 grams Route: IVPB; Infused Over: 2 hrs; Site: right ao antecubital; 21:55 Follow up: IV Status: Completed infusion; IV Intake: 50ml ao 20:34 Drug: Zofran 4 mg Route: IVP; Site: right antecubital; ao 21:02 Follow up: Response: No adverse reaction ao Intake: 20:55 IV: 1000ml; Total: 1000ml. ao 21:30 IV: 1000ml; Total: 2000ml. ao 21:55 IV: 50ml; Total: 2050ml. ao Outcome: 19:23 Discharge ordered by . bridgette 21:45 Discharged to home via wheelchair. ao 21:45 Condition: stable 21:45 Discharge instructions given to patient, Instructed on discharge instructions, follow up and referral plans. Demonstrated understanding of instructions, follow-up care, medications, Prescriptions given X 1. 21:48 Patient left the ED. ao Signatures: Dispatcher [employer] Simon Kaplan1 Deandre Mckeon MD MD cha Barber, Rebecca, RN RN rb1 Félix Manriquez RN RN ao
--- NOTE | 2018-02-23 19:24 | EDPHYS ---
Physician Documentation [facility] Name: Walt Velazquez Age: 47 yrs Sex: Male : 1970 Arrival Date: 02/23/2018 Time: 18:08 Bed 15 Private MD: ED Physician Deandre Mckeon HPI: 02/23 18:56 This 47 yrs old Male presents to ER via EMS with complaints of General bridgette Weakness. 18:56 The patient presents to the emergency department with a known poisoning, etoh, heavy. bridgette Associated signs and symptoms: Pertinent positives: dizziness, shortness of breath. Severity of symptoms: At their worst the symptoms were mild moderate in the emergency department the symptoms are unchanged. hx of EtOH abuse. The patient presents with trouble concentrating. Onset: The symptoms/episode began/occurred just prior to arrival. Possible causes: alcohol. Associated signs and symptoms: The patient has no apparent associated signs or symptoms. Onset: The symptoms/episode began/occurred today. Historical: - Allergies: 18:00 Trazodone; rb1 - Home Meds: 18:00 Dilantin Oral 100 mg three times a day [Active]; Risperdal Oral once daily [Active]; rb1 Ritalin Oral [Active]; - PMHx: 18:00 Alcoholism; Bipolar disorder; DT; pancreatic cancer; Parkinsons; Seizures; rb1 - PSHx: 18:00 None; rb1 - Immunization history:: Adult Immunizations up to date. - Social history:: Smoking status: Patient/guardian denies using tobacco. - Ebola Screening: : Patient negative for fever greater than or equal to 101.5 degrees Fahrenheit, and additional compatible Ebola Virus Disease symptoms. - Family history:: pertinent for not pertinent. ROS: 18:56 Constitutional: Negative for fever, chills, and weight loss, Eyes: Negative for injury, bridgette pain, redness, and discharge, ENT: Negative for injury, pain, and discharge, Neck: Negative for injury, pain, and swelling, Cardiovascular: Negative for chest pain, palpitations, and edema, Respiratory: Negative for shortness of breath, cough, wheezing, and pleuritic chest pain, Abdomen/GI: Negative for abdominal pain, nausea, vomiting, diarrhea, and constipation, Back: Negative for injury and pain, : Negative for injury, bleeding, discharge, and swelling, MS/Extremity: Negative for injury and deformity, Skin: Negative for injury, rash, and discoloration, Psych: Negative for depression, anxiety, suicide ideation, homicidal ideation, and hallucinations, Allergy/Immunology: Negative for hives, rash, and allergies, Endocrine: Negative for neck swelling, polydipsia, polyuria, polyphagia, and marked weight changes, Hematologic/Lymphatic: Negative for swollen nodes, abnormal bleeding, and unusual bruising. 18:56 Neuro: Positive for dizziness, weakness. Exam: 18:56 Head/Face: Normocephalic, atraumatic. Eyes: Pupils equal round and reactive to light, bridgette extra-ocular motions intact. Lids and lashes normal. Conjunctiva and sclera are non-icteric and not injected. Cornea within normal limits. Periorbital areas with no swelling, redness, or edema. ENT: Nares patent. No nasal discharge, no septal abnormalities noted. Tympanic membranes are normal and external auditory canals are clear. Oropharynx with no redness, swelling, or masses, exudates, or evidence of obstruction, uvula midline. Mucous membranes moist. Neck: Trachea midline, no thyromegaly or masses palpated, and no cervical lymphadenopathy. Supple, full range of motion without nuchal rigidity, or vertebral point tenderness. No Meningismus. Chest/axilla: Normal chest wall appearance and motion. Nontender with no deformity. No lesions are appreciated. Cardiovascular: Regular rate and rhythm with a normal S1 and S2. No gallops, murmurs, or rubs. Normal PMI, no JVD. No pulse deficits. Respiratory: Lungs have equal breath sounds bilaterally, clear to auscultation and percussion. No rales, rhonchi or wheezes noted. No increased work of breathing, no retractions or nasal flaring. Abdomen/GI: Soft, non-tender, with normal bowel sounds. No distension or tympany. No guarding or rebound. No evidence of tenderness throughout. Back: No spinal tenderness. No costovertebral tenderness. Full range of motion. Male : Normal genitalia with no discharge or lesions. Skin: Warm, dry with normal turgor. Normal color with no rashes, no lesions, and no evidence of cellulitis. Psych: Awake, alert, with orientation to person, place and time. Behavior, mood, and affect are within normal limits. 18:56 Constitutional: The patient appears well nourished, anxious. 18:56 Neuro: Orientation: appropriate for stated age, no acute changes, to person, place \T\ time. Mentation: slow to respond, Memory: appropriate for stated age, no acute changes, Cranial nerves: grossly normal, is grossly normal based on the patient's age, no acute changes, Cerebellar function: unable to test, Motor: Sensation: no obvious gross deficits, Gait: not tested. seizure activity, is not displayed by the patient. Vital Signs: 18:00 BP 119 / 82; Pulse 96; Resp 17; Temp 98.5(O); Pulse Ox 98% on R/A; Weight 63.5 kg (R); rb1 Height 5 ft. 3 in. (160.02 cm) (R); Pain 8/10; 19:20 BP 124 / 84; Pulse 96; Resp 16; Pulse Ox 98% ; ao 20:52 BP 112 / 76; Pulse 88; Resp 18; Pulse Ox 97% on R/A; ao 18:00 Body Mass Index 24.80 (63.50 kg, 160.02 cm) rb1 MDM: 18:[address] [facility] 18:56 Data reviewed: vital signs, nurses notes, lab test result(s), EKG, radiologic studies, [facility] CT scan, plain films. 02/23 18:13 Order name: Basic Metabolic Panel; Complete Time: 19:22 [facility] 02/23 18:13 Order name: CBC with Diff; Complete Time: 19:19 [facility] 02/23 18:13 Order name: Ckmb; Complete Time: :22 [facility] 02/23 18:13 Order name: CPK; Complete Time: :22 [facility] 02/23 18:13 Order name: LFT's; Complete Time: 19:22 [facility] 02/23 18:13 Order name: Magnesium; Complete Time: 19:22 [facility] 02/23 18:13 Order name: NT PRO-BNP; Complete Time: :22 [facility] 02/23 18:13 Order name: PT-INR; Complete Time: 19:19 [facility] 02/23 18:13 Order name: Ptt, Activated; Complete Time: 19:19 [facility] 02/23 18:13 Order name: Troponin (emerg Dept Use Only); Complete Time: :22 [facility] 02/23 18:13 Order name: Acetaminophen; Complete Time: :22 [facility] 02/23 18:13 Order name: ETOH Level; Complete Time: 19:15 [facility] 02/23 18:13 Order name: Salicylate [facility] 02/23 18:13 Order name: Urine Drug Screen [facility] 02/23 18:13 Order name: XRAY Chest (1 view); Complete Time: 19:15 [facility] 02/23 18:13 Order name: EKG; Complete Time: 18:15 [facility] 02/23 18:13 Order name: Cardiac monitoring; Complete Time: 18:52 [facility] 02/23 18:13 Order name: EKG - Nurse/Tech; Complete Time: 18:52 [facility] 02/23 18:13 Order name: IV Saline Lock; Complete Time: 18:52 [facility] 02/23 18:13 Order name: Labs collected and sent; Complete Time: 18:52 [facility] 02/23 18:13 Order name: O2 Per Protocol; Complete Time: 18:53 [facility] 02/23 18:13 Order name: O2 Sat Monitoring; Complete Time: 18:53 [facility] 02/23 18:13 Order name: CT Head Brain wo Cont; Complete Time: 19:00 [facility] 02/23 21:09 Order name: Urine Dipstick--Ancillary (enter results) [facility] 02/23 18:13 Order name: Urine Dipstick-Ancillary (obtain specimen); Complete Time: 21:03 [facility] 02/23 18:14 Order name: Seizure Precautions; Complete Time: 18:57 [facility] Administered Medications: 18:40 Drug: NS 0.9% 1000 ml Route: IV; Rate: 1 bolus; Site: right antecubital; rb1 20:55 Follow up: IV Status: Completed infusion; IV Intake: 1000ml ao 18:40 Drug: Pepcid 20 mg Route: IVP; Site: right antecubital; rb1 20:56 Follow up: Response: No adverse reaction ao 19:18 Drug: Thiamine 100 mg Route: IV; Rate: bolus; Site: right antecubital; ao 20:56 Follow up: IV Status: Completed infusion ao 19:18 Drug: Banana Bag - (NS 0.9% 1000 ml, foLIC Acid 1 mg, Thiamine 100 mg, Multivitamin 1 ao amp) Route: IV; Rate: 200 ml/hr; Site: right antecubital; 21:30 Follow up: IV Status: Completed infusion; IV Intake: 1000ml ao 19:34 Drug: Magnesium Sulfate 2 grams Route: IVPB; Infused Over: 2 hrs; Site: right ao antecubital; 21:55 Follow up: IV Status: Completed infusion; IV Intake: 50ml ao 20:34 Drug: Zofran 4 mg Route: IVP; Site: right antecubital; ao 21:02 Follow up: Response: No adverse reaction ao Disposition: 02/23/18 19:23 Discharged to Home. Impression: Weakness, Alcohol abuse, Alcohol abuse with intoxication, Hypomagnesemia. - Condition is Stable. - Discharge Instructions: Alcohol Intoxication, Hypomagnesemia, Near-Syncope, Weakness, Alcohol Intoxication, [id number], Malnutrition, Alcohol Abuse and Nutrition, Weakness, [id number]. - Prescriptions for Vitamin 27- 0.8 mg Oral Tablet - take 1 tablet by ORAL route once daily; 30 tablet. - Medication Reconciliation Form, Thank You Letter, Antibiotic Education, Prescription Opioid Use form. - Follow up: Private Physician; When: 2 - 3 days; Reason: Recheck today's complaints, Continuance of care, Re-evaluation by your physician. - Problem is new. - Symptoms have improved. Signatures: Dispatcher [employer] EDMN Deandre Mckeon MD MD cha Barber, Rebecca, RN RN rb1 Félix Manriquez RN RN ao Corrections: (The following items were deleted from the chart) 21:48 19:23 02/23/2018 19:23 Discharged to Home. Impression: Weakness; Alcohol abuse; Alcohol ao abuse with intoxication; Hypomagnesemia. Condition is Stable. Discharge Instructions: Alcohol Intoxication, Near-Syncope, Weakness, Alcohol Intoxication, [id number], Alcohol Abuse and Nutrition, Weakness, [id number]. Prescriptions for Vitamin 27-0.8 mg Oral Tablet - take 1 tablet by ORAL route once daily; 30 tablet. and Forms are Medication Reconciliation Form, Thank You Letter, Antibiotic Education, Prescription Opioid Use. Follow up: Private Physician; When: 2 - 3 days; Reason: Recheck today's complaints, Continuance of care, Re-evaluation by your physician. Problem is new. Symptoms have improved. bridgette
[2018-02-23] MEDS ORDERED: Magnesium Sulfate 2gm IVPB 2 G/50 ML BAG IV ONE (19:33)
[2018-02-23] MEDS ORDERED: ONDANSETRON 4 MG/2 ML VIAL ONE (20:36)
[2018-02-23 21:26] LABS: Urine Blood NEGATIVE (NEG); Urine Glucose NEGATIVE (NEG); Urine Protein NEGATIVE (NEG)
[2018-02-23 21:48] LABS: Barbiturates NEGATIVE (NEGATIVE); Benzodiazepines NEGATIVE (NEGATIVE); Cocaine POSITIVE (NEGATIVE); METHAMPHETAM NEGATIVE (NEGATIVE); Methadone NEGATIVE (NEGATIVE); Opiates NEGATIVE (NEGATIVE); Phencyclidine NEGATIVE (NEGATIVE); THC Cannibis NEGATIVE (NEGATIVE)
[2018-02-23 23:21] VITALS: BP 112/76; O2SAT 97
--- NOTE | 2018-02-24 17:54 | EKG ---
Test Date: 2018-02-23 Test Time: 18:37:46 Studio Technician: NAHUM MEASUREMENT RESULTS: Intervals: Rate: 88 VT: 160 QRSD: 72 QT: 334 QTc: 404 [place]: P: 63 VT: 160 QRS: 46 T: 47 INTERPRETIVE STATEMENTS: Normal sinus rhythm Normal ECG Compared to ECG 02/08/2018 00:52:50 No significant changes Electronically Signed On 02-24-18 17:51:10 CDT by Asim Thompson
== END 2018-02-23 21:48 | disposition home or self-care (01) ==
LOC: ER 18:07
DX: F10.229 Alcohol dependence with intoxication, unspecified (principal); E83.42 Hypomagnesemia; G20 Parkinson's disease; G40.909 Epilepsy, unspecified, not intractable, without status epilepticus; F31.9 Bipolar disorder, unspecified; Z85.07 Personal history of malignant neoplasm of pancreas; Z88.5 Allergy status to narcotic agent
CPT/HCPCS: 36415; 70450; 71045; 80048; 80076; 80307; 80320; 80329; 81003; 82550; 82553; 83735; 83880; 84484; 85025; 85610; 85730; 93005; 96361; 96365; 96366; 96367; 96368; 96375; 99284; J2405; J3411; J3475; J7030

== ENCOUNTER 2018-05-07 21:11 | Emergency (ER) | payer SELFPAY ==
[2018-05-07] MEDS ORDERED: NA CHLORIDE 0.9% 1,000 ML ONE (21:43)
[2018-05-07] MEDS ORDERED: MAGNESIUM SULFATE 1 gm IVPB 1 GM/100 ML BAG IV ONE (21:43)
[2018-05-07] MEDS ORDERED: THIAMINE 200 MG/2 ML INJ ONE (21:43)
[2018-05-07 21:50] LABS: Absolute Monocytes 1.3 K/uL (0.1-1.3); Absolute Neutrophil 7.7 K/uL (1.8-8.0); Basophils % 0.6 % (0-1.3); Eosinophils % 0.4 % (0-4.4); Hematocrit 34.3 % (39.6-49.0); Lymphocytes % 10.2 % (15.3-44.8); MCH 31.7 pg (27.0-35.0); MCV 95.2 fL (80-100); MPV 6.9 fL (7.6-11.3); Monocytes % 12.5 % (3.3-12.3)
--- NOTE | 2018-05-07 22:05 | RAD REPORT ---
EXAM DESCRIPTION: CT - Head Brain Wo Cont - 05/07/2018 9:54 pm CLINICAL HISTORY: Syncope COMPARISON: February 2018 TECHNIQUE: Computed axial tomography of the head was obtained. IV contrast was not requested. All CT scans are performed using dose optimization technique as appropriate and may include automated exposure control or mA/KV adjustment according to patient size. FINDINGS: An intracranial bleed is not seen . The ventricles are normal in caliber. No extra-axial fluid collection is noted. Fluid within the sinuses/ mastoids is not seen. IMPRESSION: No acute intracranial abnormality is seen. If patient's symptoms persist MRI of the bra in would be recommended.
[2018-05-07 22:08] LABS: Protime INR 1.03
[2018-05-07 22:13] LABS: Barbiturates NEGATIVE (NEGATIVE); Benzodiazepines NEGATIVE (NEGATIVE); Cocaine NEGATIVE (NEGATIVE); METHAMPHETAM NEGATIVE (NEGATIVE); Methadone NEGATIVE (NEGATIVE); Opiates NEGATIVE (NEGATIVE); Phencyclidine NEGATIVE (NEGATIVE); THC Cannibis NEGATIVE (NEGATIVE)
[2018-05-07 22:22] LABS: ALT/SGPT 25 U/L (12-78); AST/SGOT 32 U/L (15-37); Albumin 3.5 g/dL (3.4-5.0); Alkaline Phosphatase 106 U/L (45-117); BUN Blood Urea Nitrogen 21 mg/dL (7-18); Bicarbonate 26 mmol/L (21-32); Bilirubin Direct < 0.1 mg/dL (0-0.2); Bilirubin Total 0.3 mg/dL (0.2-1.0); Glucose Level 109 mg/dL (74-106); Lipase 71 U/L (73-393); Phenytoin (Dilantin) Level 14.9 ug/mL (10.0-20.0); Potassium 4.8 mmol/L (3.5-5.1); Protein, Total 7.1 g/dL (6.4-8.2); Sodium Level 136 mmol/L (136-145)
--- NOTE | 2018-05-07 22:31 | EDPHYS ---
Physician Documentation [facility] Name: Walt Velazquez Age: 47 yrs Sex: Male : 1970 Arrival Date: 05/07/2018 Time: 21:12 Bed 30 Private MD: ED Physician Deandre Mckeon HPI: 05/07 21:33 This 47 yrs old Male presents to ER via EMS with complaints of syncope, bridgette seizure activity. 21:33 The patient presents to the emergency department cocaine, etoh. Context: unk drugs, bridgette admitted to cocaine. Associated signs and symptoms: Pertinent positives: nausea. Severity of symptoms: At their worst the symptoms were mild moderate in the emergency department the symptoms have improved moderately. drug use, etoh, seizure. Onset: The symptoms/episode began/occurred just prior to arrival. Possible causes: drug use, cocaine, alcohol, seizure. Historical: - Allergies: 21:26 Trazodone; mg2 - Home Meds: 21:26 Dilantin Oral 100 mg three times a day [Active]; Risperdal Oral once daily [Active]; mg2 Ritalin Oral [Active]; - PMHx: 21:27 Alcoholism; Bipolar disorder; DT; pancreatic cancer; Parkinsons; Seizures; mg2 - PSHx: 21:26 left thigh surgery; mg2 - Immunization history:: Flu vaccine is not up to date. - Social history:: Smoking status: Patient uses tobacco products, cigars, 3 sticks a week, Patient uses alcohol, claims drinking about a 6 pack/day. last beer intake was 4 days ago. - Ebola Screening: : No symptoms or risks identified at this time. - Family history:: not pertinent. ROS: 21:33 Constitutional: Negative for fever, chills, and weight loss, Eyes: Negative for injury, bridgette pain, redness, and discharge, ENT: Negative for injury, pain, and discharge, Neck: Negative for injury, pain, and swelling, Cardiovascular: Negative for chest pain, palpitations, and edema, Respiratory: Negative for shortness of breath, cough, wheezing, and pleuritic chest pain, Abdomen/GI: Negative for abdominal pain, nausea, vomiting, diarrhea, and constipation, Back: Negative for injury and pain, : Negative for injury, bleeding, discharge, and swelling, MS/Extremity: Negative for injury and deformity, Skin: Negative for injury, rash, and discoloration, Psych: Negative for depression, anxiety, suicide ideation, homicidal ideation, and hallucinations, Allergy/Immunology: Negative for hives, rash, and allergies, Endocrine: Negative for neck swelling, polydipsia, polyuria, polyphagia, and marked weight changes, Hematologic/Lymphatic: Negative for swollen nodes, abnormal bleeding, and unusual bruising. 21:33 Neuro: Positive for altered mental status, seizure activity. Exam: 21:33 Constitutional: This is a well developed, well nourished patient who is awake, alert, bridgette and in no acute distress. Head/Face: Normocephalic, atraumatic. Eyes: Pupils equal round and reactive to light, extra-ocular motions intact. Lids and lashes normal. Conjunctiva and sclera are non-icteric and not injected. Cornea within normal limits. Periorbital areas with no swelling, redness, or edema. ENT: Nares patent. No nasal discharge, no septal abnormalities noted. Tympanic membranes are normal and external auditory canals are clear. Oropharynx with no redness, swelling, or masses, exudates, or evidence of obstruction, uvula midline. Mucous membranes moist. Neck: Trachea midline, no thyromegaly or masses palpated, and no cervical lymphadenopathy. Supple, full range of motion without nuchal rigidity, or vertebral point tenderness. No Meningismus. Chest/axilla: Normal chest wall appearance and motion. Nontender with no deformity. No lesions are appreciated. Cardiovascular: Regular rate and rhythm with a normal S1 and S2. No gallops, murmurs, or rubs. Normal PMI, no JVD. No pulse deficits. Respiratory: Lungs have equal breath sounds bilaterally, clear to auscultation and percussion. No rales, rhonchi or wheezes noted. No increased work of breathing, no retractions or nasal flaring. Abdomen/GI: Soft, non-tender, with normal bowel sounds. No distension or tympany. No guarding or rebound. No evidence of tenderness throughout. Back: No spinal tenderness. No costovertebral tenderness. Full range of motion. Male : Normal genitalia with no discharge or lesions. Skin: Warm, dry with normal turgor. Normal color with no rashes, no lesions, and no evidence of cellulitis. MS/ Extremity: Pulses equal, no cyanosis. Neurovascular intact. Full, normal range of motion. 21:33 Neuro: Orientation: appropriate for stated age, no acute changes, to person, place, time \T\ situation. Mentation: slow to respond, Memory: appropriate for stated age, Cranial nerves: is grossly normal based on the patient's age, no acute changes, Motor: moves all fours, Sensation: no obvious gross deficits, appropriate Gait: not tested. seizure activity, is not displayed by the patient. Vital Signs: 21:25 BP 105 / 58; Pulse 113; Resp 18; Temp 98.3; Pulse Ox 100% on R/A; Weight 61.23 kg; mg2 Height 5 ft. 3 in. (160.02 cm); Pain 0/10; 22:45 BP 105 / 85; Pulse 109; Resp 18; Pulse Ox 100% ; kr2 23:47 BP 112 / 66; Pulse 100; Resp 17; Pulse Ox 99% on R/A; kr2 21:25 Body Mass Index 23.91 (61.23 kg, 160.02 cm) mg2 MDM: 21:16 Patient medically screened. [facility] 21:38 Data reviewed: vital signs, nurses notes, EMS record, lab test result(s), EKG, bridgette radiologic studies, CT scan. 05/07 21:17 Order name: Acetaminophen; Complete Time: 22:28 [facility] 05/07 21:17 Order name: Basic Metabolic Panel; Complete Time: 22:28 [facility] 05/07 21:17 Order name: CBC with Diff; Complete Time: 22:28 [facility] 05/07 21:17 Order name: ETOH Level; Complete Time: 22:28 [facility] 05/07 21:17 Order name: Hepatic Function; Complete Time: 22:28 [facility] 05/07 21:17 Order name: PT-INR; Complete Time: 22:28 [facility] 05/07 21:17 Order name: Ptt, Activated; Complete Time: 22:28 [facility] 05/07 21:17 Order name: Salicylate; Complete Time: 22:28 [facility] 05/07 21:17 Order name: Urine Drug Screen; Complete Time: 22:28 [facility] 05/07 21:18 Order name: Lipase; Complete Time: 22:28 [facility] 05/07 21:19 Order name: Dilantin; Complete Time: 22:28 [facility] 05/07 21:32 Order name: CT Head Brain wo Cont; Complete Time: 22:28 [facility] 05/07 22:27 Order name: Urine Dipstick--Ancillary (enter results) ms 05/07 21:17 Order name: EKG; Complete Time: 21:18 [facility] 05/07 21:17 Order name: EKG - Nurse/Tech; Complete Time: 21:34 [facility] 05/07 21:17 Order name: IV Saline Lock; Complete Time: 21:34 [facility] 05/07 21:17 Order name: Labs collected and sent; Complete Time: 21:34 [facility] 05/07 21:17 Order name: Urine Dipstick-Ancillary (obtain specimen); Complete Time: 21:59 [facility] 05/07 21:17 Order name: Seizure Precautions; Complete Time: 21:33 [facility] Administered Medications: 21:38 Drug: NS 0.9% 1000 ml Route: IV; Rate: 1 bolus; Site: right forearm; kr2 22:30 Follow up: Response: No adverse reaction; IV Status: Completed infusion kr2 22:58 Follow up: Response: No adverse reaction; IV Status: Completed infusion kr2 21:38 Drug: Thiamine 100 mg Route: PO; kr2 22:45 Follow up: Response: No adverse reaction mg2 22:45 Follow up: Response: No adverse reaction kr2 22:58 Follow up: Response: No adverse reaction kr2 22:11 Drug: Magnesium Sulfate 1 grams Route: IVPB; Infused Over: 1 hrs; Site: right forearm; kr2 23:30 Follow up: Response: No adverse reaction; IV Status: Completed infusion kr2 22:44 Drug: Ativan 1 mg Route: IVP; Site: right antecubital; mg2 23:51 Follow up: Response: No adverse reaction kr2 Disposition: 05/07/18 22:30 Discharged to Home. Impression: Epilepsy and recurrent seizures, Abuse of non-psychoactive substances. - Condition is Stable. - Discharge Instructions: Alcohol Use Disorder, Substance Use Disorder, Seizure, Adult, Alcohol Abuse and Nutrition, Seizure, Adult, [id number]. - Medication Reconciliation Form, Thank You Letter, Antibiotic Education, Prescription Opioid Use form. - Follow up: Private Physician; When: 2 - 3 days; Reason: Recheck today's complaints, Continuance of care, Re-evaluation by your physician. Follow up: Manav Paz MD; When: 2 - 3 days; Reason: Recheck today's complaints, Re-evaluation by your physician. - Problem is new. - Symptoms have improved. Signatures: Dispatcher [employer] EDDeandre Castrejon MD MD cha Reaves, Karey RN RN kr2 Lorne Galan RN RN mg2 Corrections: (The following items were deleted from the chart) 22:32 22:30 05/07/2018 22:30 Discharged to Home. Impression: Epilepsy and recurrent seizures; bridgette Abuse of non-psychoactive substances. Condition is Stable. Forms are Medication Reconciliation Form, Thank You Letter, Antibiotic Education, Prescription Opioid Use. Follow up: Private Physician; When: 2 - 3 days; Reason: Recheck today's complaints, Continuance of care, Re-evaluation by your physician. Problem is new. Symptoms have improved. [facility] 23:52 22:32 05/07/2018 22:30 Discharged to Home. Impression: Epilepsy and recurrent seizures; kr2 Abuse of non-psychoactive substances. Condition is Stable. Discharge Instructions: Substance Use Disorder, Seizure, Adult, Seizure, Adult, [id number]. Forms are Medication Reconciliation Form, Thank You Letter, Antibiotic Education, Prescription Opioid Use. Follow up: Private Physician; When: 2 - 3 days; Reason: Recheck today's complaints, Continuance of care, Re-evaluation by your physician. Follow up: Manav Paz; When: 2 - 3 days; Reason: Recheck today's complaints, Re-evaluation by your physician. Problem is new. Symptoms have improved. bridgette
--- NOTE | 2018-05-07 22:31 | ER ---
Nurse's Notes [facility] Name: Walt Velazquez Age: 47 yrs Sex: Male : 1970 Arrival Date: 05/07/2018 Time: 21:12 Bed 30 Private MD: Diagnosis: Epilepsy and recurrent seizures;Abuse of non-psychoactive substances Presentation: 05/07 21:18 Presenting complaint: EMS states: he has tremors/probable seizure? today \T\ 3 pm while mg2 he was walking. He has parkinsons disorder. blood pressure was low on scene but patient was asymptomatic,. nothing given. patient alert, oriented, A/Ox4. Transition of care: patient was not received from another setting of care. Onset of symptoms was May 07, 2018. Risk Assessment: Do you want to hurt yourself or someone else? Patient reports no desire to harm self or others. Initial Sepsis Screen: Does the patient meet any 2 criteria? No. Patient's initial sepsis screen is negative. Does the patient have a suspected source of infection? No. Patient's initial sepsis screen is negative. Care prior to arrival: None. 21:18 Method Of Arrival: EMS: [facility] mg2 21:18 Acuity: LATASHA 3 mg2 Historical: - Allergies: 21:26 Trazodone; mg2 - Home Meds: 21:26 Dilantin Oral 100 mg three times a day [Active]; Risperdal Oral once daily [Active]; mg2 Ritalin Oral [Active]; - PMHx: 21:27 Alcoholism; Bipolar disorder; DT; pancreatic cancer; Parkinsons; Seizures; mg2 - PSHx: 21:26 left thigh surgery; mg2 - Immunization history:: Flu vaccine is not up to date. - Social history:: Smoking status: Patient uses tobacco products, cigars, 3 sticks a week, Patient uses alcohol, claims drinking about a 6 pack/day. last beer intake was 4 days ago. - Ebola Screening: : No symptoms or risks identified at this time. - Family history:: not pertinent. Screenin:56 Abuse screen: Denies threats or abuse. Denies injuries from another. Nutritional kr2 screening: No deficits noted. Tuberculosis screening: No symptoms or risk factors identified. Fall Risk IV access (20 points). Gait- Impaired (20 pts.). Mental Status- Overestimates/Forgets Limitations (15 pts.). Assessment: 21:30 General: Appears in no apparent distress. comfortable, Behavior is calm, cooperative. kr2 Pain: Denies pain. Neuro: Level of Consciousness is awake, alert, obeys commands, Oriented to person, place, time, situation, Appropriate for age Computer Systems Technician are equal bilaterally Moves all extremities. Facial symmetry appears normal, Pupils are PERRLA, Intact Tremor noted to bilateral upper extremities. Reports Possible seizure, he admits to using cocaine and drinking frequently. Cardiovascular: Capillary refill < 3 seconds in bilateral fingers Patient's skin is warm and dry. Rhythm is regular. Respiratory: Airway is patent Respiratory effort is even, unlabored, Respiratory pattern is regular, symmetrical. GI: Abdomen is flat, non-distended, Bowel sounds present X 4 quads. Abd is soft and non tender X 4 quads. EENT: Oral mucosa is moist. Derm: Skin is intact, with poor turgor Skin is pink, warm \T\ dry. Musculoskeletal: Circulation, motion, and sensation intact. 22:29 Reassessment: Patient appears in no apparent distress at this time. Patient and/or kr2 family updated on plan of care and expected duration. Pain level reassessed. Patient is alert, oriented x 3, equal unlabored respirations, skin warm/dry/pink. No seizure activity. 23:45 Reassessment: Patient appears in no apparent distress at this time. Patient and/or kr2 family updated on plan of care and expected duration. Pain level reassessed. Patient is alert, oriented x 3, equal unlabored respirations, skin warm/dry/pink. Spoke with patient's room mate at number on file per patient permission. He states he will come pick patient up from hospital. Vital Signs: 21:25 BP 105 / 58; Pulse 113; Resp 18; Temp 98.3; Pulse Ox 100% on R/A; Weight 61.23 kg; mg2 Height 5 ft. 3 in. (160.02 cm); Pain 0/10; 22:45 BP 105 / 85; Pulse 109; Resp 18; Pulse Ox 100% ; kr2 23:47 BP 112 / 66; Pulse 100; Resp 17; Pulse Ox 99% on R/A; kr2 21:25 Body Mass Index 23.91 (61.23 kg, 160.02 cm) mg2 ED Course: 21:12 Patient arrived in ED. al2 21:16 Deandre Mckeon MD is Attending Physician. bridgette 21:25 Triage completed. mg2 21:28 Arm band placed on. mg2 21:30 Patient has correct armband on for positive identification. Bed in low position. Call kr2 light in reach. Side rails up X2. Seizure precautions initiated. container crane operator on. Pulse ox on. NIBP on. Door closed. Warm blanket given. Head of bed elevated. 21:30 Inserted saline lock: 20 gauge in right forearm, using aseptic technique. Blood kr2 collected. 21:[address] via stretcher. jg6 21:38 Alyssa Parkinson, RN is Primary Nurse. kr2 21:54 CT Head Brain wo Cont In Process Unspecified. EDMS 22:32 Manav Paz MD is Referral Physician. [facility] 23:46 No provider procedures requiring assistance completed. IV discontinued, intact, kr2 bleeding controlled, No redness/swelling at site. Pressure dressing applied. Administered Medications: 21:38 Drug: NS 0.9% 1000 ml Route: IV; Rate: 1 bolus; Site: right forearm; kr2 22:30 Follow up: Response: No adverse reaction; IV Status: Completed infusion kr2 22:58 Follow up: Response: No adverse reaction; IV Status: Completed infusion kr2 21:38 Drug: Thiamine 100 mg Route: PO; kr2 22:45 Follow up: Response: No adverse reaction mg2 22:45 Follow up: Response: No adverse reaction kr2 22:58 Follow up: Response: No adverse reaction kr2 22:11 Drug: Magnesium Sulfate 1 grams Route: IVPB; Infused Over: 1 hrs; Site: right forearm; kr2 23:30 Follow up: Response: No adverse reaction; IV Status: Completed infusion kr2 22:44 Drug: Ativan 1 mg Route: IVP; Site: right antecubital; mg2 23:51 Follow up: Response: No adverse reaction kr2 Outcome: 22:30 Discharge ordered by . bridgette 23:46 Discharged to home via wheelchair, with friend. kr2 23:46 Condition: stable 23:46 Discharge instructions given to patient, Instructed on discharge instructions, follow up and referral plans. Demonstrated understanding of instructions, follow-up care. 23:52 Patient left the ED. kr2 Signatures: Dispatcher [employer] EDCA Deandre Mckeon MD MD cha Reaves, Karey, RN RN kr2 Alison Sher al2 Lorne Galan, ROBERTO RN mg2 Aristeo, Natalee jg6 Corrections: (The following items were deleted from the chart) 21:28 21:25 BP 105 / 58; Pulse 113bpm; Resp 18bpm; Pulse Ox 100% RA; Temp 98.3F; Pain 0/10; mg2 mg2 22:31 20:30 General: Appears in no apparent distress. comfortable, Behavior is calm, kr2 cooperative, kr2 :31 20:30 Pain: Denies pain. kr2 kr2 : 20:30 Neuro: Level of Consciousness is awake, alert, obeys commands, Oriented to kr2 person, place, time, situation, Appropriate for age Computer Systems Technician are equal bilaterally Moves all extremities. Facial symmetry appears normal, Pupils are PERRLA, Intact Tremor noted to bilateral upper extremities. Reports Possible seizure, he admits to using cocaine and drinking frequently. kr2 : 20:30 Cardiovascular: Capillary refill < 3 seconds in bilateral fingers Patient's skin kr2 is warm and dry. Rhythm is regular kr2 : 20:30 Respiratory: Airway is patent Respiratory effort is even, unlabored, Respiratory kr2 pattern is regular, symmetrical, kr2 : 20:30 GI: Abdomen is flat, non-distended, Bowel sounds present X 4 quads. Abd is soft kr2 and non tender X 4 quads. kr2 : 20:30 EENT: Oral mucosa is moist. kr2 kr2 :31 20:30 Derm: Skin is intact, with poor turgor Skin is pink, warm \T\ dry. kr2 kr2 :31 20:30 Musculoskeletal: Circulation, motion, and sensation intact. kr2 kr2 : 21:30 Reassessment: Patient appears in no apparent distress at this time. Patient kr2 and/or family updated on plan of care and expected duration. Pain level reassessed. Patient is alert, oriented x 3, equal unlabored respirations, skin warm/dry/pink. Patient denies pain at this time. kr2 :32 20:30 Patient has correct armband on for positive identification. Bed in low position. kr2 Call light in reach. Side rails up X2. Seizure precautions initiated. kr2 : 20:30 container crane operator on. Pulse ox on. NIBP on. kr2 kr2 22:32 20:30 Door closed. Warm blanket given. Head of bed elevated. kr2 kr2 22:32 20:30 Inserted saline lock: 20 gauge in right forearm, using aseptic technique. Blood kr2 collected. kr2
[2018-05-07] MEDS ORDERED: LORazepam 2 MG/ML VIAL ONE (22:49)
[2018-05-07 23:09] LABS: Urine Blood NEGATIVE (NEG); Urine Glucose NEGATIVE (NEG); Urine Protein NEGATIVE (NEG)
[2018-05-08] MEDS ORDERED: THIAMINE HCL 100 MG TABLET ONE (00:04)
[2018-05-08 01:12] VITALS: TEMP 98.3
[2018-05-08 01:14] VITALS: BP 112/66; O2SAT 99
--- NOTE | 2018-05-09 05:52 | EKG ---
Test Date: 2018-05-07 Test Time: 21:35:41 Hull Drafter: NISHI MEASUREMENT RESULTS: Intervals: Rate: 104 VA: 174 QRSD: 68 QT: 326 QTc: 428 [place]: P: 62 VA: 174 QRS: 66 T: 42 INTERPRETIVE STATEMENTS: Sinus tachycardia Otherwise normal ECG Compared to ECG 02/23/2018 18:37:46 Sinus rhythm no longer present Electronically Signed On 05-09-18 05:51:47 PARI MUTUEL TICKET SELLER by Barron Kumar
== END 2018-05-07 23:52 | disposition home or self-care (01) ==
LOC: ER 21:11
DX: G40.802 Other epilepsy, not intractable, without status epilepticus (principal); F55.8 Abuse of other non-psychoactive substances; F10.20 Alcohol dependence, uncomplicated; F31.9 Bipolar disorder, unspecified; G20 Parkinson's disease; Z72.0 Tobacco use; Z85.07 Personal history of malignant neoplasm of pancreas; Z88.5 Allergy status to narcotic agent
CPT/HCPCS: 36415; 70450; 80048; 80076; 80185; 80307; 80320; 80329; 81003; 83690; 85025; 85610; 85730; 93005; 96361; 96365; 96375; 99285; J3411; J3475; J7030

== ENCOUNTER 2018-05-17 11:11 | Emergency (ER) | payer SELFPAY ==
[2018-05-17] MEDS ORDERED: FOLIC ACID 1 MG, THIAMINE HCL 100 MG, MULTIVITAMINS INJ 10 ML in NA CHLORIDE 0.9% 1,000 ML IV ONE (11:45)
[2018-05-17] MEDS ORDERED: DIAZEPAM 10 MG/2 ML INJ SYRINGE ONE ×2 (11:50→14:54)
[2018-05-17] MEDS ORDERED: NA CHLORIDE 0.9% 1,000 ML ONE (11:50)
[2018-05-17 11:57] LABS: Absolute Lymphocytes (CBC) 0.9 K/uL (0.7-4.9); Absolute Monocytes 0.6 K/uL (0.1-1.3); Absolute Neutrophil 5.4 K/uL (1.8-8.0); Eosinophils % 0.3 % (0-4.4); Hematocrit 35.6 % (39.6-49.0); Lymphocytes % 12.5 % (15.3-44.8); MCH 31.3 pg (27.0-35.0); MPV 7.1 fL (7.6-11.3); Monocytes % 8.7 % (3.3-12.3); RBC Red Blood Cell Count 3.88 M/uL (4.33-5.43)
[2018-05-17 12:04] LABS: BUN Blood Urea Nitrogen 15 mg/dL (7-18); Bicarbonate 25 mmol/L (21-32); Glucose Level 136 mg/dL (74-106); Sodium Level 137 mmol/L (136-145)
--- NOTE | 2018-05-17 12:38 | EKG ---
Test Date: 2018-05-17 Test Time: 12:19:17 Occupational Therapy Asst: RODRIGO MEASUREMENT RESULTS: Intervals: Rate: 96 NM: 154 QRSD: 66 QT: 336 QTc: 424 [place]: P: 54 NM: 154 QRS: 49 T: 36 INTERPRETIVE STATEMENTS: Normal sinus rhythm Normal ECG Compared to ECG 05/07/2018 21:35:41 Sinus tachycardia no longer present Electronically Signed On 05-17-18 12:38:05 TWINE REELING MACHINE OPERATOR by Barron Kumar
[2018-05-17] MEDS ORDERED: IBUPROFEN 400 MG TAB ONE (14:54)
--- NOTE | 2018-05-17 15:00 | EDPHYS ---
Physician Documentation [facility] Name: Walt Velazquez Age: 47 yrs Sex: Male : 1970 Arrival Date: 05/17/2018 Time: 11:15 Bed 2 Private MD: ED Physician Kaiser Marie HPI: 05/17 13:19 This 47 yrs old Male presents to ER via EMS with complaints of shaking. rn 13:19 [facility]ports in [facility] last night, is daily drinker, wasn't able to drink in [facility], woke up rn shaking and feeling bad, sent here for eval. No seizure. No pain. . Onset: The symptoms/episode began/occurred this morning. Severity of symptoms: At their worst the symptoms were mild in the emergency department the symptoms have improved. The patient has experienced similar episodes in the past. The patient has not recently seen a physician. Historical: - Allergies: 11:19 Trazodone; jl7 - Home Meds: 11:19 Dilantin Oral 100 mg three times a day [Active]; Risperdal Oral once daily [Active]; jl7 Ritalin Oral [Active]; - PMHx: 11:19 Alcoholism; Bipolar disorder; DT; pancreatic cancer; Parkinsons; Seizures; jl7 - Immunization history:: Adult Immunizations unknown. - Social history:: Smoking status: Patient uses tobacco products, denies chronic smoking, but will smoke occasionally. - Ebola Screening: : No symptoms or risks identified at this time. - Family history:: not pertinent. - Hospitalizations: : No recent hospitalization is reported. ROS: 13:19 Constitutional: Negative for fever, chills, and weight loss, Eyes: Negative for injury, rn pain, redness, and discharge, Neck: Negative for injury, pain, and swelling, Cardiovascular: Negative for chest pain, palpitations, and edema, Respiratory: Negative for shortness of breath, cough, wheezing, and pleuritic chest pain, Abdomen/GI: Negative for abdominal pain, diarrhea, and constipation, MS/Extremity: Negative for injury and deformity, Skin: Negative for injury, rash, and discoloration, Neuro: Negative for headache, numbness, tingling, and seizure, + generalized weakness Exam: 13:19 Constitutional: This is a well developed, well nourished patient who is awake, alert, rn and in no acute distress. Head/Face: Normocephalic, atraumatic. Eyes: Pupils equal round and reactive to light, extra-ocular motions intact. Lids and lashes normal. Conjunctiva and sclera are non-icteric and not injected. Cornea within normal limits. Periorbital areas with no swelling, redness, or edema. ENT: dry MM Cardiovascular: regular, tachycardic, no murmur Respiratory: Lungs have equal breath sounds bilaterally, clear to auscultation, No increased work of breathing, no retractions or nasal flaring. Abdomen/GI: soft, non-tender MS/ Extremity: Pulses equal, no cyanosis. Neurovascular intact. Full, normal range of motion. Equal circumference. Neuro: Awake and alert, GCS 15, oriented to person, place, time, and situation. Cranial nerves II-XII grossly intact. Motor strength 5/5 in all extremities. Sensory grossly intact. + coarse extremity tremors in all 4 extremities. Vital Signs: 11:19 BP 157 / 91; Pulse 113; Resp 16 S; Temp 98.9(O); Pulse Ox 100% on R/A; Weight 68.04 kg jl7 (R); Pain 8/10; 12:30 BP 154 / 91; Pulse 91; Resp 16 S; Pulse Ox 100% on R/A; jl7 13:15 BP 139 / 83; Pulse 94; Resp 16 S; Pulse Ox 98% on R/A; jl7 14:30 BP 134 / 74; Pulse 90; Resp 16 S; Pulse Ox 99% on R/A; jl7 15:10 BP 135 / 86; Pulse 97; Resp 16 S; Pulse Ox 99% on R/A; jl7 MDM: 11:15 Patient medically screened. rn 14:57 Differential Diagnosis alcohol withdrawal, dehydration. Data reviewed: vital signs, rn nurses notes, lab test result(s), EKG, and as a result, I will discharge patient. Counseling: I had a detailed discussion with the patient and/or guardian regarding: the historical points, exam findings, and any diagnostic results supporting the discharge/admit diagnosis, lab results, the need for outpatient follow up, to return to the emergency department if symptoms worsen or persist or if there are any questions or concerns that arise at home. Response to treatment: the patient's symptoms have markedly improved after treatment, and as a result, I will discharge patient. Special discussion: I discussed with the patient/guardian in detail that at this point there is no indication for admission to the hospital. It is understood, however, that if the symptoms persist or worsen the patient needs to return immediately for re-evaluation. ED course: Pt improved, no longer shaking, improved vitals, most consistent with ETOH withdrawal, patient requests to go home, states stays with his mother and she will care for him, return precautions as well as counseling about ETOH given and understood. . 05/17 11:17 Order name: CBC with Diff rn 05/17 11:17 Order name: Basic Metabolic Panel; Complete Time: 13:41 rn 05/17 11:17 Order name: ETOH Level; Complete Time: 13:41 rn 05/17 11:18 Order name: CBC with Automated Diff; Complete Time: 13:41 EDMS 05/17 11:17 Order name: IV Start; Complete Time: 11:46 rn 05/17 11:17 Order name: EKG - Nurse/Tech; Complete Time: 12:14 rn 05/17 11:17 Order name: EKG; Complete Time: 11:18 rn 05/17 14:40 Order name: Diet Regular; Complete Time: 14:41 dh3 Administered Medications: 11:46 Drug: NS 0.9% 1000 ml Route: IV; Rate: 1000 ml; Site: right antecubital; jl7 13:00 Follow up: IV Status: Completed infusion jl7 11:46 Drug: Valium 10 mg Route: IVP; Site: right antecubital; jl7 12:00 Follow up: Response: No adverse reaction; Marked relief of symptoms jl7 12:14 Drug: Banana Bag - (NS 0.9% 1000 ml, foLIC Acid 1 mg, Thiamine 100 mg, Multivitamin 1 jl7 amp) Route: IV; Rate: calculated rate; Site: right antecubital; 15:08 Follow up: IV Status: Completed infusion jl7 14:50 Drug: Motrin 400 mg Route: PO; jl7 15:21 Follow up: Response: No adverse reaction jl7 14:51 Drug: Valium 10 mg Route: IVP; Site: right antecubital; jl7 15:08 Follow up: Response: No adverse reaction; Marked relief of symptoms jl7 Disposition: 05/17/18 14:59 Discharged to Home. Impression: Dehydration, Alcohol dependence with withdrawal, uncomplicated. - Condition is Stable. - Discharge Instructions: Alcohol Withdrawal, Dehydration, Adult. - Prescriptions for Dilantin Kapseal 100 mg Oral Capsule - take 1 capsule by ORAL route every 8 hours; 30 capsule. - Medication Reconciliation Form, Thank You Letter, Antibiotic Education, Prescription Opioid Use form. - Follow up: Private Physician; When: As needed; Reason: Recheck today's complaints, Re-evaluation by your physician. - Problem is new. - Symptoms have improved. Signatures: Dispatcher [employer] EDMS Kaiser Marie MD MD rn Leal, Jahala, RN RN jl7 Corrections: (The following items were deleted from the chart) 15:21 14:59 05/17/2018 14:59 Discharged to Home. Impression: Dehydration; Alcohol dependence jl7 with withdrawal, uncomplicated. Condition is Stable. Forms are Medication Reconciliation Form, Thank You Letter, Antibiotic Education, Prescription Opioid Use. Follow up: Private Physician; When: As needed; Reason: Recheck today's complaints, Re-evaluation by your physician. Problem is new. Symptoms have improved. rn
--- NOTE | 2018-05-17 15:00 | ER ---
Nurse's Notes [facility] Name: Walt Velazquez Age: 47 yrs Sex: Male : 1970 Arrival Date: 05/17/2018 Time: 11:15 Bed 2 Private MD: Diagnosis: Dehydration;Alcohol dependence with withdrawal, uncomplicated Presentation: 05/17 11:16 Presenting complaint: EMS states: Pt stayed the night in [facility] and started c/o chest jl7 pain this morning and reports he's been having it for 4 days. Pt appears to be shaking. Pt states "I haven't had a drink since 3:00 yesterday afternoon.". Transition of care: patient was not received from another setting of care. Onset of symptoms was May 17, 2018. Risk Assessment: Do you want to hurt yourself or someone else? Patient reports no desire to harm self or others. Initial Sepsis Screen: Does the patient meet any 2 criteria? No. Patient's initial sepsis screen is negative. Does the patient have a suspected source of infection? No. Patient's initial sepsis screen is negative. Care prior to arrival: None. 11:16 Method Of Arrival: EMS: [facility] jl7 11:16 Acuity: LATASHA 3 jl7 Triage Assessment: 11:19 General: Appears uncomfortable, ill, Behavior is cooperative, anxious. Pain: Complains jl7 of pain in anterior aspect of left upper chest Pain does not radiate. Pain currently is 8 out of 10 on a pain scale. Quality of pain is described as sharp, Pain began 2-3 days ago. Is continuous. EENT: No signs and/or symptoms were reported regarding the EENT system. Neuro: Level of Consciousness is awake, alert, obeys commands, Oriented to person, place. Cardiovascular: Heart tones S1 S2 present Patient's skin is warm and dry. Respiratory: Airway is patent Respiratory effort is even, unlabored, Respiratory pattern is regular, symmetrical, Breath sounds are clear bilaterally. GI: No signs and/or symptoms were reported involving the gastrointestinal system. : No signs and/or symptoms were reported regarding the genitourinary system. Derm: Skin is pink, warm \\T\\ dry. Musculoskeletal: No signs and/or symptoms reported regarding the musculoskeletal system. Historical: - Allergies: 11:19 Trazodone; jl7 - Home Meds: 11:19 Dilantin Oral 100 mg three times a day [Active]; Risperdal Oral once daily [Active]; jl7 Ritalin Oral [Active]; - PMHx: 11:19 Alcoholism; Bipolar disorder; DT; pancreatic cancer; Parkinsons; Seizures; jl7 - Immunization history:: Adult Immunizations unknown. - Social history:: Smoking status: Patient uses tobacco products, denies chronic smoking, but will smoke occasionally. - Ebola Screening: : No symptoms or risks identified at this time. - Family history:: not pertinent. - Hospitalizations: : No recent hospitalization is reported. Screenin:00 Abuse screen: Denies threats or abuse. Denies injuries from another. Nutritional jl7 screening: No deficits noted. Tuberculosis screening: No symptoms or risk factors identified. Fall Risk IV access (20 points). Assessment: 11:30 General: See triage assessment. jl7 12:30 Reassessment: Patient appears in no apparent distress at this time. Patient and/or jl7 family updated on plan of care and expected duration. Pain level reassessed. Patient is alert, oriented x 3, equal unlabored respirations, skin warm/dry/pink. Patient states symptoms have improved. 14:20 Reassessment: Patient appears in no apparent distress at this time. Patient and/or jl7 family updated on plan of care and expected duration. Pain level reassessed. Patient is alert, oriented x 3, equal unlabored respirations, skin warm/dry/pink. Pt c/o SCALES, provider notified, see [facility] for orders. Vital Signs: 11:19 BP 157 / 91; Pulse 113; Resp 16 S; Temp 98.9(O); Pulse Ox 100% on R/A; Weight 68.04 kg jl7 (R); Pain 8/10; 12:30 BP 154 / 91; Pulse 91; Resp 16 S; Pulse Ox 100% on R/A; jl7 13:15 BP 139 / 83; Pulse 94; Resp 16 S; Pulse Ox 98% on R/A; jl7 14:30 BP 134 / 74; Pulse 90; Resp 16 S; Pulse Ox 99% on R/A; jl7 15:10 BP 135 / 86; Pulse 97; Resp 16 S; Pulse Ox 99% on R/A; jl7 ED Course: 11:00 Patient has correct armband on for positive identification. Placed in gown. Bed in low jl7 position. Call light in reach. Side rails up X 1. zmt operator on. Pulse ox on. NIBP on. 11:15 Patient arrived in ED. rn 11:15 Kaiser Marie MD is Attending Physician. rn 11:18 Triage completed. jl7 11:19 Arm band placed on right wrist. jl7 11:34 Inserted saline lock: 22 gauge in right forearm, using aseptic technique. Blood gm collected. 11:38 Initial lab(s) drawn, by me, sent to lab. gm 11:46 Eric Parisi, ROBERTO is Primary Nurse. jl7 12:30 EKG done, by information technology coordinator. reviewed by Kaiser Marie MD. at1 15:21 No provider procedures requiring assistance completed. IV discontinued, intact, jl7 bleeding controlled, No redness/swelling at site. Pressure dressing applied. Administered Medications: 11:46 Drug: NS 0.9% 1000 ml Route: IV; Rate: 1000 ml; Site: right antecubital; jl7 13:00 Follow up: IV Status: Completed infusion jl7 11:46 Drug: Valium 10 mg Route: IVP; Site: right antecubital; jl7 12:00 Follow up: Response: No adverse reaction; Marked relief of symptoms jl7 12:14 Drug: Banana Bag - (NS 0.9% 1000 ml, foLIC Acid 1 mg, Thiamine 100 mg, Multivitamin 1 jl7 amp) Route: IV; Rate: calculated rate; Site: right antecubital; 15:08 Follow up: IV Status: Completed infusion jl7 14:50 Drug: Motrin 400 mg Route: PO; jl7 15:21 Follow up: Response: No adverse reaction jl7 14:51 Drug: Valium 10 mg Route: IVP; Site: right antecubital; jl7 15:08 Follow up: Response: No adverse reaction; Marked relief of symptoms jl7 Outcome: 14:59 Discharge ordered by . rn 15:21 Discharged to home ambulatory. jl7 15:21 Condition: stable 15:21 Discharge instructions given to patient, Instructed on discharge instructions, follow up and referral plans. medication usage, Demonstrated understanding of instructions, follow-up care, medications, Prescriptions given X 1. 15:21 Patient left the ED. jl7 Signatures: Kaiser Marie MD MD rn Gonzales, Amanda, puff iron operator EKG Tat1 Eric Parisi, RN RN jl7 Reyna Montes De Oca gm
[2018-05-17 21:18] VITALS: TEMP 98.9
[2018-05-17 21:22] VITALS: BP 135/86; O2SAT 99
== END 2018-05-17 15:21 | disposition home or self-care (01) ==
LOC: ER 11:11
DX: E86.0 Dehydration (principal); F10.239 Alcohol dependence with withdrawal, unspecified; F31.9 Bipolar disorder, unspecified; G20 Parkinson's disease; G40.909 Epilepsy, unspecified, not intractable, without status epilepticus; F17.210 Nicotine dependence, cigarettes, uncomplicated; Z79.899 Other long term (current) drug therapy; Z85.07 Personal history of malignant neoplasm of pancreas
CPT/HCPCS: 36415; 80048; 80320; 85025; 93005; 96365; 96366; 96375; 99285; J3360; J3411; J7030

== ENCOUNTER 2018-05-17 19:53 | Emergency (ER) | payer SELFPAY ==
--- NOTE | 2018-05-17 21:12 | RAD REPORT ---
EXAM DESCRIPTION: RAD - Chest Pa And Lat (2 Views) - 05/17/2018 9:05 pm CLINICAL HISTORY: Chest pain COMPARISON: February 23, 2018 TECHNIQUE: PA and lateral views of the chest were obtained. FINDINGS: The lungs are clear of focal abnormality. Lung markings are similar to comparison. Heart size is normal and central vasculature is within normal limits. No pleural effusion or pneumothorax seen. Advanced for age thoracic spine degenerative changes are present. Acute bony finding is not i dentified. No aortic abnormality. IMPRESSION: No acute cardiopulmonary process. Advanced for age midthoracic degenerative change.
--- NOTE | 2018-05-17 21:32 | ER ---
Nurse's Notes [facility] Name: Walt Velazquez Age: 47 yrs Sex: Male : 1970 Arrival Date: 05/17/2018 Time: 19:59 Bed 13 Private MD: Diagnosis: Chest pain, unspecified;Malingerer [conscious simulation] Presentation: 05/17 20:06 Presenting complaint: Presenting complaint: Patient states: Chest pain since yesterday. aj1 Patient was seen in this ER for the same complaint today and was discharged at 1521. Patient states that his pain is the same. 20:08 Transition of care: patient was not received from another setting of care. Onset of aj1 symptoms was May 16, 2018. Risk Assessment: Do you want to hurt yourself or someone else? Patient reports no desire to harm self or others. Initial Sepsis Screen: Does the patient meet any 2 criteria? No. Patient's initial sepsis screen is negative. Does the patient have a suspected source of infection? No. Patient's initial sepsis screen is negative. Care prior to arrival: None. 20:08 Method Of Arrival: Ambulatory aj 20:08 Acuity: LATASHA 3 aj1 Triage Assessment: 20:10 General: Appears in no apparent distress. comfortable, Behavior is calm, cooperative, aj1 agitated. Pain: Complains of pain in chest Pain currently is 6 out of 10 on a pain scale. Neuro: Level of Consciousness is awake, alert, obeys commands. Cardiovascular: Reports chest pain, Patient's skin is warm and dry. Respiratory: Airway is patent Respiratory effort is even, unlabored, Respiratory pattern is regular, symmetrical. Historical: - Allergies: 20:10 Trazodone; aj1 - Home Meds: 20:10 Dilantin Oral 100 mg three times a day [Active]; Risperdal Oral once daily [Active]; aj1 Ritalin Oral [Active]; - PMHx: 20:10 Alcoholism; Bipolar disorder; DT; pancreatic cancer; Parkinsons; Seizures; aj1 - Immunization history:: Flu vaccine is not up to date. - Social history:: Smoking status: Patient uses tobacco products, 3 cigarettes per week, [place] [address] - Ebola Screening: : Patient denies travel to an Ebola-affected area in the 21 days before illness onset. Screenin:20 Abuse screen: Denies threats or abuse. Denies injuries from another. Nutritional aa1 screening: No deficits noted. Tuberculosis screening: No symptoms or risk factors identified. Fall Risk None identified. Assessment: 20:20 General: Appears in no apparent distress. comfortable, slender, unkempt, Behavior is aa1 calm, cooperative, appropriate for age. Pain: Complains of pain in chest Pain began 1 day ago. Is continuous. Neuro: Level of Consciousness is awake, alert, obeys commands, Oriented to person, place, time, situation, Moves all extremities. Full function Gait is steady, Speech is normal. Cardiovascular: Reports chest pain, Heart tones S1 S2 present Capillary refill < 3 seconds Patient's skin is warm and dry. Rhythm is regular. Respiratory: Airway is patent Respiratory effort is even, unlabored, Respiratory pattern is regular, symmetrical, Breath sounds are clear. GI: No signs and/or symptoms were reported involving the gastrointestinal system. : No signs and/or symptoms were reported regarding the genitourinary system. EENT: No signs and/or symptoms were reported regarding the EENT system. Derm: Skin is intact, is healthy with good turgor, Skin is pink, warm \T\ dry. Musculoskeletal: Circulation, motion, and sensation intact. Capillary refill < 3 seconds. 21:41 Reassessment: Patient appears in no apparent distress at this time. Patient is alert, aa1 oriented x 3, equal unlabored respirations, skin warm/dry/pink. Discussed d/c \T\ f/u instructions with pt; denies questions or concerns at this time. Patient states feeling better. Vital Signs: 20:10 BP 109 / 66; Pulse 88; Resp 18; Temp 98.4; Pulse Ox 100% on R/A; Weight 76.2 kg (R); aj1 Height 5 ft. 3 in. (160.02 cm) (R); Pain 6/10; 21:41 BP 111 / 72; Pulse 89; Resp 18; Pulse Ox 99% on R/A; aa1 20:10 Body Mass Index 29.76 (76.20 kg, 160.02 cm) aj1 ED Course: 19:59 Patient arrived in ED. es 20:09 Triage completed. aj1 20:10 Arm band placed on Patient placed in an exam room. aj1 20:13 Braydon Mejia MD is Attending Physician. gs 20:20 Lexi Ontiveros, RN is Primary Nurse. aa1 20:20 Patient has correct armband on for positive identification. Bed in low position. Call aa1 light in reach. 20:20 Patient maintains SpO2 saturation greater than 95% on room air. aa1 20:45 EKG done, by ED staff, reviewed by Braydon Mejia MD. ds4 20:55 Troponin (Emerg Dept Use Only) Sent. ds4 20:55 Troponin (emerg Dept Use Only) Sent. ds4 21:02 XRAY Chest Pa And Lat (2 Views) In Process Unspecified. EDMS 21:41 No provider procedures requiring assistance completed. Patient did not have IV access aa1 during this emergency room visit. Administered Medications: No medications were administered Outcome: 21:31 Discharge ordered by . gs 21:41 Discharged to home ambulatory. aa1 21:41 Condition: good 21:41 Discharge instructions given to patient, Instructed on discharge instructions, follow up and referral plans. Demonstrated understanding of instructions, follow-up care. 21:46 Patient left the ED. aa1 Signatures: Dispatcher [employer] EDMS Irma Elaine, RN RN aj1 Lexi Ontiveros, RN RN aa1 Chuyita Lopez Donovan ds4 Braydon Mejia MD MD Corrections: (The following items were deleted from the chart) 20:09 20:06 Presenting complaint: aj1 aj1
--- NOTE | 2018-05-17 21:32 | EDPHYS ---
Physician Documentation [facility] Name: Walt Velazquez Age: 47 yrs Sex: Male : 1970 Arrival Date: 05/17/2018 Time: 19:59 Bed 13 Private MD: ED Physician Braydon Mejia HPI: 05/17 21:27 This 47 yrs old Male presents to ER via Ambulatory with complaints of Chest gs Pain. 21:27 The patient or guardian reports chest pain that is located primarily in the anterior gs chest wall. Onset: 1 week(s) ago. The pain does not radiate. Associated signs and symptoms: Pertinent negatives: abdominal pain, diaphoresis, shortness of breath, syncope, vomiting. The chest pain is described as dull. Duration: The patient or guardian reports multiple episodes, that wax and wane, with no pattern, the episodes last approximately 2 second(s). Modifying factors: The symptoms are alleviated by nothing. the symptoms are aggravated by nothing. Severity of pain: At its worst the pain was mild in the emergency department the pain has resolved and did so just prior to arrival. The patient has experienced similar episodes in the past, multiple times. The patient has been recently seen at the [facility] Emergency Department, for similar complaints. Historical: - Allergies: 20:10 Trazodone; aj1 - Home Meds: 20:10 Dilantin Oral 100 mg three times a day [Active]; Risperdal Oral once daily [Active]; aj1 Ritalin Oral [Active]; - PMHx: 20:10 Alcoholism; Bipolar disorder; DT; pancreatic cancer; Parkinsons; Seizures; aj1 - Immunization history:: Flu vaccine is not up to date. - Social history:: Smoking status: Patient uses tobacco products, 3 cigarettes per week, [place] [address] - Ebola Screening: : Patient denies travel to an Ebola-affected area in the 21 days before illness onset. ROS: 21:27 All other systems are negative. gs Exam: 21:27 Head/Face: Normocephalic, atraumatic. Eyes: Pupils equal round and reactive to light, gs extra-ocular motions intact. Lids and lashes normal. Conjunctiva and sclera are non-icteric and not injected. Cornea within normal limits. Periorbital areas with no swelling, redness, or edema. ENT: Nares patent. No nasal discharge, no septal abnormalities noted. Tympanic membranes are normal and external auditory canals are clear. Oropharynx with no redness, swelling, or masses, exudates, or evidence of obstruction, uvula midline. Mucous membranes moist. Neck: Trachea midline, no thyromegaly or masses palpated, and no cervical lymphadenopathy. Supple, full range of motion without nuchal rigidity, or vertebral point tenderness. No Meningismus. Chest/axilla: Normal chest wall appearance and motion. Nontender with no deformity. No lesions are appreciated. Cardiovascular: Regular rate and rhythm with a normal S1 and S2. No gallops, murmurs, or rubs. Normal PMI, no JVD. No pulse deficits. Respiratory: Lungs have equal breath sounds bilaterally, clear to auscultation and percussion. No rales, rhonchi or wheezes noted. No increased work of breathing, no retractions or nasal flaring. Abdomen/GI: Soft, non-tender, with normal bowel sounds. No distension or tympany. No guarding or rebound. No evidence of tenderness throughout. Back: No spinal tenderness. No costovertebral tenderness. Full range of motion. Skin: Warm, dry with normal turgor. Normal color with no rashes, no lesions, and no evidence of cellulitis. MS/ Extremity: Pulses equal, no cyanosis. Neurovascular intact. Full, normal range of motion. Neuro: Awake and alert, GCS 15, oriented to person, place, time, and situation. Cranial nerves II-XII grossly intact. Motor strength 5/5 in all extremities. Sensory grossly intact. Cerebellar exam normal. Normal gait. 21:27 Constitutional: The patient appears alert, awake. 21:27 ECG was reviewed by the Attending Physician. Vital Signs: 20:10 BP 109 / 66; Pulse 88; Resp 18; Temp 98.4; Pulse Ox 100% on R/A; Weight 76.2 kg (R); aj1 Height 5 ft. 3 in. (160.02 cm) (R); Pain 6/10; 21:41 BP 111 / 72; Pulse 89; Resp 18; Pulse Ox 99% on R/A; aa1 20:10 Body Mass Index 29.76 (76.20 kg, 160.02 cm) aj1 MDM: 20:16 Patient medically screened. gs 21:27 Differential diagnosis: abnormal EKG, coronary artery disease chest wall pain, gs malingering. Data reviewed: vital signs, nurses notes. 05/17 20:18 Order name: Troponin (emerg Dept Use Only) 05/17 20:18 Order name: Troponin (Emerg Dept Use Only); Complete Time: 21:27 EDMO 05/17 20:18 Order name: EKG - Nurse/Tech; Complete Time: 20:45 05/17 20:51 Order name: XRAY Chest Pa And Lat (2 Views); Complete Time: 21:17 EC: Rate is 84 beats/min. Rhythm is regular. [place] interval is normal. QRS interval is normal. gs T waves are Normal. No ST changes noted. Clinical impression: Normal ECG. Interpreted by me. Administered Medications: No medications were administered Disposition: 05/17/18 21:31 Discharged to Home. Impression: Chest pain, unspecified, Malingerer [conscious simulation]. - Condition is Stable. - Discharge Instructions: Nonspecific Chest Pain. - Medication Reconciliation Form, Thank You Letter, Antibiotic Education, Prescription Opioid Use form. - Follow up: Private Physician; When: 2 - 3 days; Reason: Re-evaluation by your physician. Signatures: Dispatcher [employer] EDMO Irma Elaine RN RN aj1 Lexi Ontiveros RN RN aa1 Braydon Mejia MD MD Corrections: (The following items were deleted from the chart) 21:46 21:31 05/17/2018 21:31 Discharged to Home. Impression: Chest pain, unspecified; aa1 Malingerer [conscious simulation]. Condition is Stable. Forms are Medication Reconciliation Form, Thank You Letter, Antibiotic Education, Prescription Opioid Use. Follow up: Private Physician; When: 2 - 3 days; Reason: Re-evaluation by your physician.
[2018-05-18 03:21] VITALS: TEMP 98.4
[2018-05-18 03:22] VITALS: BP 111/72; O2SAT 99
--- NOTE | 2018-05-18 12:11 | EKG ---
Test Date: 2018-05-17 Test Time: 20:40:02 Polymerization Oven Tender: MARCOS MEASUREMENT RESULTS: Intervals: Rate: 84 OR: 168 QRSD: 70 QT: 348 QTc: 411 [place]: P: 59 OR: 168 QRS: 41 T: 30 INTERPRETIVE STATEMENTS: Normal sinus rhythm Normal ECG Compared to ECG 05/17/2018 12:19:17 No significant changes Electronically Signed On 05-18-18 12:09:13 LOG GRADER by Asim Thompson
== END 2018-05-17 21:46 | disposition home or self-care (01) ==
LOC: ER 19:53
DX: Z76.5 Malingerer [conscious simulation] (principal); R07.9 Chest pain, unspecified; F31.9 Bipolar disorder, unspecified; G20 Parkinson's disease; Z79.899 Other long term (current) drug therapy
CPT/HCPCS: 36415; 71046; 84484; 93005; 99284

== ENCOUNTER 2018-05-18 03:17 | Emergency (ER) | payer SELFPAY ==
--- NOTE | 2018-05-18 03:51 | EDPHYS ---
Physician Documentation [facility] Name: Walt Velazquez Age: 47 yrs Sex: Male : 1970 Arrival Date: 05/18/2018 Time: 03:22 Bed Waiting Private MD: ED Physician Braydon Mejia HPI: 05/18 03:37 This 47 yrs old Male presents to ER via Unassigned with complaints of Headache.gs 03:37 The patient complains of pain to the forehead. The patient describes the headache as gs throbbing. Onset: The symptoms/episode began/occurred gradually, this morning, waiting in er lobby, he is homeless and malingering. Severity of symptoms: At its worst the pain was mild, in the emergency department the pain is unchanged. Headache History: The patient has had previous headaches and this one is similar to previous episodes. The symptoms are alleviated by nothing. the symptoms are aggravated by nothing. The patient has experienced similar episodes in the past, several times. Historical: - Allergies: 03:51 Trazodone; aa1 - PMHx: 03:51 Alcoholism; Bipolar disorder; DT; pancreatic cancer; Parkinsons; Seizures; aa1 - Immunization history:: Flu vaccine is not up to date. - Social history:: Smoking status: Patient uses tobacco products, denies chronic smoking, but will smoke occasionally. - Ebola Screening: : Patient denies exposure to infectious person Patient denies travel to an Ebola-affected area in the 21 days before illness onset. ROS: 03:37 All other systems are negative. gs Exam: 03:37 Head/Face: Normocephalic, atraumatic. Eyes: Pupils equal round and reactive to light, gs extra-ocular motions intact. Lids and lashes normal. Conjunctiva and sclera are non-icteric and not injected. Cornea within normal limits. Periorbital areas with no swelling, redness, or edema. ENT: Nares patent. No nasal discharge, no septal abnormalities noted. Tympanic membranes are normal and external auditory canals are clear. Oropharynx with no redness, swelling, or masses, exudates, or evidence of obstruction, uvula midline. Mucous membranes moist. Neck: Trachea midline, no thyromegaly or masses palpated, and no cervical lymphadenopathy. Supple, full range of motion without nuchal rigidity, or vertebral point tenderness. No Meningismus. Chest/axilla: Normal chest wall appearance and motion. Nontender with no deformity. No lesions are appreciated. Cardiovascular: Regular rate and rhythm with a normal S1 and S2. No gallops, murmurs, or rubs. Normal PMI, no JVD. No pulse deficits. Respiratory: Lungs have equal breath sounds bilaterally, clear to auscultation and percussion. No rales, rhonchi or wheezes noted. No increased work of breathing, no retractions or nasal flaring. Abdomen/GI: Soft, non-tender, with normal bowel sounds. No distension or tympany. No guarding or rebound. No evidence of tenderness throughout. Back: No spinal tenderness. No costovertebral tenderness. Full range of motion. Skin: Warm, dry with normal turgor. Normal color with no rashes, no lesions, and no evidence of cellulitis. MS/ Extremity: Pulses equal, no cyanosis. Neurovascular intact. Full, normal range of motion. Neuro: Awake and alert, GCS 15, oriented to person, place, time, and situation. Cranial nerves II-XII grossly intact. Motor strength 5/5 in all extremities. Sensory grossly intact. Cerebellar exam normal. Normal gait. 03:37 Constitutional: The patient appears alert, awake. Vital Signs: 03:25 BP 149 / 94; Pulse 90; Resp 18; Temp 98.2; Pulse Ox 100% on R/A; Weight 56.7 kg; Height aa1 5 ft. 6 in. (167.64 cm); Pain 6/10; 03:25 Body Mass Index 20.18 (56.70 kg, 167.64 cm) aa1 MDM: 03:37 Patient medically screened. 03:37 Data reviewed: vital signs, nurses notes. Counseling: I had a detailed discussion with the patient and/or guardian regarding: the historical points, exam findings, and any diagnostic results supporting the discharge/admit diagnosis, the need for outpatient follow up. Administered Medications: No medications were administered Disposition: 05/18/18 03:37 Discharged to Home. Impression: Headache, Malingerer [conscious simulation]. - Condition is Stable. - Discharge Instructions: General Headache Without Cause. - Medication Reconciliation Form, Thank You Letter, Antibiotic Education, Prescription Opioid Use form. - Follow up: Private Physician; When: 2 - 3 days; Reason: Re-evaluation by your physician. Follow up: Juan Carlos, Carlos, ; When: 2 - 3 days; Reason: Re-evaluation by your physician. Signatures: Lexi Ontiveros RN RN aa1 Braydon Mejia MD MD gs Corrections: (The following items were deleted from the chart) 03:51 03:37 05/18/2018 03:37 Discharged to Home. Impression: Headache; Malingerer [conscious aa1 simulation]. Condition is Stable. Forms are Medication Reconciliation Form, Thank You Letter, Antibiotic Education, Prescription Opioid Use. Follow up: Private Physician; When: 2 - 3 days; Reason: Re-evaluation by your physician. Follow up: Ambar-Carlitos Rangel; When: 2 - 3 days; Reason: Re-evaluation by your physician. gs
--- NOTE | 2018-05-18 03:51 | ER ---
Nurse's Notes [facility] Name: Walt Velazquez Age: 47 yrs Sex: Male : 1970 Arrival Date: 05/18/2018 Time: 03:22 Bed Waiting Private MD: Diagnosis: Headache;Malingerer [conscious simulation] Presentation: 05/18 03:25 Presenting complaint: Patient states: he is out of his medications and does not have a aa1 doctor to refill them. Pt has already been seen \T\ evaluated in this ED twice in the past 24 hrs and has had negative EKGs, blood work, and x-rays. Pt seen and evaluated by MD in triage at this time and given information for clinic in [place] he can follow up with for his routine healthcare and medication refills, as well as information for homeless [facility]. Transition of care: patient was not received from another setting of care. Onset of symptoms is unknown. Risk Assessment: Do you want to hurt yourself or someone else? Patient reports no desire to harm self or others. Initial Sepsis Screen: Does the patient meet any 2 criteria? No. Patient's initial sepsis screen is negative. Does the patient have a suspected source of infection? No. Patient's initial sepsis screen is negative. Care prior to arrival: None. 03:25 Method Of Arrival: Ambulatory aa1 03:25 Acuity: LATASHA 5 aa1 Historical: - Allergies: 03:51 Trazodone; aa1 - PMHx: 03:51 Alcoholism; Bipolar disorder; DT; pancreatic cancer; Parkinsons; Seizures; aa1 - Immunization history:: Flu vaccine is not up to date. - Social history:: Smoking status: Patient uses tobacco products, denies chronic smoking, but will smoke occasionally. - Ebola Screening: : Patient denies exposure to infectious person Patient denies travel to an Ebola-affected area in the 21 days before illness onset. Screenin:27 Abuse screen: Denies threats or abuse. Denies injuries from another. Nutritional aa1 screening: No deficits noted. Tuberculosis screening: No symptoms or risk factors identified. Fall Risk None identified. Assessment: 03:27 General: Appears in no apparent distress. comfortable, slender, unkempt, Behavior is aa1 calm, cooperative, appropriate for age. Pain: Complains of pain in forehead Quality of pain is described as aching, Is intermittent. Neuro: Level of Consciousness is awake, alert, obeys commands, Oriented to person, place, time, situation, Moves all extremities. Full function Gait is steady, Speech is normal, Facial symmetry appears normal, Reports headache frontal area. Cardiovascular: Heart tones S1 S2 present Capillary refill < 3 seconds Patient's skin is warm and dry. Rhythm is regular. Respiratory: Airway is patent Respiratory effort is even, unlabored, Respiratory pattern is regular, symmetrical. GI: No signs and/or symptoms were reported involving the gastrointestinal system. : No signs and/or symptoms were reported regarding the genitourinary system. EENT: No signs and/or symptoms were reported regarding the EENT system. Derm: Skin is intact, is healthy with good turgor, Skin is pink, warm \T\ dry. Musculoskeletal: Circulation, motion, and sensation intact. Capillary refill < 3 seconds. Vital Signs: 03:25 BP 149 / 94; Pulse 90; Resp 18; Temp 98.2; Pulse Ox 100% on R/A; Weight 56.7 kg; Height aa1 5 ft. 6 in. (167.64 cm); Pain 6/10; 03:25 Body Mass Index 20.18 (56.70 kg, 167.64 cm) aa1 ED Course: 03:22 Patient arrived in ED. do 03:25 Arm band placed on right wrist. aa1 03:27 Patient has correct armband on for positive identification. aa1 03:27 No provider procedures requiring assistance completed. Patient did not have IV access aa1 during this emergency room visit. 03:36 Braydon Mejia MD is Attending Physician. gs 03:37 Carlos Rangel DO is Referral Physician. gs 03:42 Lexi Ontiveros RN is Primary Nurse. aa1 03:48 Triage completed. aa1 Administered Medications: No medications were administered Outcome: 03:27 Discharged to home ambulatory. aa1 03:27 Condition: stable 03:27 Discharge instructions given to patient, Instructed on discharge instructions, Demonstrated understanding of instructions, follow-up care, medications. 03:37 Discharge ordered by . gs 03:51 Patient left the ED. aa1 Signatures: Lexi Ontiveros RN RN aa1 Shannon Gimenez Gregory, MD MD
[2018-05-18 05:44] VITALS: BP 149/94; TEMP 98.2; O2SAT 100
== END 2018-05-18 03:51 | disposition home or self-care (01) ==
LOC: ER 03:17
DX: Z76.5 Malingerer [conscious simulation] (principal); G20 Parkinson's disease; Z72.0 Tobacco use; Z88.5 Allergy status to narcotic agent
CPT/HCPCS: 99281

== ENCOUNTER 2018-05-19 20:30 | Emergency (ER) | payer SELFPAY ==
[2018-05-19 21:45] LABS: Protime INR 0.93
[2018-05-19 21:48] LABS: Absolute Lymphocytes (CBC) 1.9 K/uL (0.7-4.9); Absolute Monocytes 0.9 K/uL (0.1-1.3); Absolute Neutrophil 3.2 K/uL (1.8-8.0); Basophils % 0.9 % (0-1.3); Eosinophils % 2.7 % (0-4.4); Hematocrit 34.6 % (39.6-49.0); Lymphocytes % 30.2 % (15.3-44.8); MCH 30.8 pg (27.0-35.0); MCV 93.7 fL (80-100); MPV 6.9 fL (7.6-11.3); Monocytes % 14.7 % (3.3-12.3); RBC Red Blood Cell Count 3.69 M/uL (4.33-5.43)
[2018-05-19 21:51] LABS: Barbiturates NEGATIVE (NEGATIVE); Benzodiazepines NEGATIVE (NEGATIVE); Cocaine NEGATIVE (NEGATIVE); METHAMPHETAM NEGATIVE (NEGATIVE); Methadone NEGATIVE (NEGATIVE); Opiates NEGATIVE (NEGATIVE); Phencyclidine NEGATIVE (NEGATIVE); THC Cannibis NEGATIVE (NEGATIVE)
[2018-05-19 22:27] LABS: ALT/SGPT 22 U/L (12-78); AST/SGOT 33 U/L (15-37); Albumin 3.4 g/dL (3.4-5.0); Alkaline Phosphatase 136 U/L (45-117); BUN Blood Urea Nitrogen 10 mg/dL (7-18); Bicarbonate 23 mmol/L (21-32); Bilirubin Direct 0.1 mg/dL (0-0.2); Bilirubin Total 0.2 mg/dL (0.2-1.0); Glucose Level 102 mg/dL (74-106); Potassium 3.3 mmol/L (3.5-5.1); Protein, Total 7.5 g/dL (6.4-8.2); Sodium Level 139 mmol/L (136-145)
[2018-05-19 22:38] LABS: Urine Blood NEGATIVE (NEG); Urine Glucose NEGATIVE (NEG); Urine Protein NEGATIVE (NEG); Urine Specific Gravity 1.005 (1.005-1.030)
--- NOTE | 2018-05-20 06:06 | ER ---
Nurse's Notes [facility] Name: Walt Velazquez Age: 47 yrs Sex: Male : 1970 Arrival Date: 05/19/2018 Time: 20:33 Bed 25 Private MD: Diagnosis: ETOH intoxication Presentation: 05/19 20:30 Presenting complaint: Patient states: that he was upset and attempting to hurt someone fc else. When he realized it was the wrong person he then wanted to hurt himself. States that he just doesn't want to live and wants to be six foot under. Transition of care: patient was not received from another setting of care. Onset of symptoms was May 19, 2018. Risk Assessment: Do you want to hurt yourself or someone else? Patient reports desire/thoughts of hurting themselves or someone else. Provider notified. Initial Sepsis Screen: Does the patient meet any 2 criteria? HR > 90 bpm. Yes Does the patient have a suspected source of infection? No. Patient's initial sepsis screen is negative. Care prior to arrival: None. 20:30 Method Of Arrival: EMS: [facility] 20:30 Acuity: LATASHA 2 fc Historical: - Allergies: 21:32 Trazodone; ak1 - Home Meds: 21:32 Dilantin Oral 100 mg three times a day [Active]; Risperdal Oral once daily [Active]; ak1 Ritalin Oral [Active]; - PMHx: 21:32 Alcoholism; Bipolar disorder; DT; pancreatic cancer; Parkinsons; Seizures; ak1 - Immunization history:: Last tetanus immunization: unknown, Flu vaccine status is unknown. - Social history:: Smoking status: Patient/guardian denies using tobacco, Patient uses alcohol, on a daily basis. Patient/guardian denies using street drugs, the patient reports quitting approximately 1 years ago. - Ebola Screening: : Patient negative for fever greater than or equal to 101.5 degrees Fahrenheit, and additional compatible Ebola Virus Disease symptoms Patient denies exposure to infectious person Patient denies travel to an Ebola-affected area in the 21 days before illness onset. Screenin:02 Abuse screen: Denies threats or abuse. Nutritional screening: No deficits noted. fc Tuberculosis screening: No symptoms or risk factors identified. Fall Risk Fall in past 12 months (25 points). Secondary diagnosis (15 points) seizures, No IV (0 pts). Ambulatory Aid- None/Bed Rest/Nurse Assist (0 pts). Gait- Impaired (20 pts.). Mental Status- Overestimates/Forgets Limitations (15 pts.). Total Cadena Fall Scale indicates High Risk Score (45 or more points). Fall prevention measures have been instituted. Side Rails Up X 2 Placed Close to Nursing Station Frequent Obs/Assessments Occuring As available patient and family educated on Fall Prevention Program and Strategies. Assessment: 21:28 General: Appears unkempt, Behavior is calm, cooperative. Pain: Denies pain. Neuro: ak1 Level of Consciousness is awake, alert, obeys commands, Oriented to person, place, time, situation, Standard Machine Stitcher are equal bilaterally Moves all extremities. Gait is shuffling, Speech is normal. Cardiovascular: No deficits noted. Respiratory: No deficits noted. GI: No signs and/or symptoms were reported involving the gastrointestinal system. : No signs and/or symptoms were reported regarding the genitourinary system. EENT: No signs and/or symptoms were reported regarding the EENT system. Derm: No signs and/or symptoms reported regarding the dermatologic system. Musculoskeletal: No signs and/or symptoms reported regarding the musculoskeletal system. 22:12 Reassessment: Patient appears in no apparent distress at this time. pt resting with ak1 eyes closed, resp even and unlabored. will continue to monitor. 23:49 Reassessment: Patient appears in no apparent distress at this time. No changes from ak1 previously documented assessment. 05/20 01:05 Reassessment: Patient appears in no apparent distress at this time. pt resting with ak1 eyes closed, resp even and unlabored. will continue to monitor. 02:10 Reassessment: Patient appears in no apparent distress at this time. No changes from ak1 previously documented assessment. 03:19 Reassessment: Patient appears in no apparent distress at this time. No changes from ak1 previously documented assessment. pt resting with eyes closed, resp even and unlabored. will continue to monitor. 04:23 Reassessment: Patient appears in no apparent distress at this time. No changes from ak1 previously documented assessment. 05:23 Reassessment: Patient appears in no apparent distress at this time. No changes from ak1 previously documented assessment. pt resting with eyes closed, resp even and unlabored. sitter remains at the bedside. will continue to monitor. 06:09 Reassessment: Patient appears in no apparent distress at this time. No changes from ak1 previously documented assessment. Psych: 05/19 21:04 Subjective: Patient's mood is hopeless, Delusions are denied, Hallucinations are fc auditory, visual, Having thoughts of homicide. Denies plan. Objective: Patient is cooperative, Speech is normal, Affect is flat. Suicide Risk Assessment: Sad Person Scale: Sex of patient: Male: Score 1 point. Age of patient: Score 0 point if patient falls outside of specified age parameters. Depression: Score 1 point if signs of depression are present. Previous Attempt: Score 1 point if patient has previously attempted suicide. Substance Abuse: Score 1 point if patient abuses alcohol or drugs. Rational Thinking: Score 1 point if patient is lacking rational thinking. Social Support: Score 1 point if social support is lacking and/or unavailable. Organized Plan: Score 1 point if patient had a plan in place. Relationship: Score 1 point if patient is , , , or for a single male Chronic Sickness: Score 1 point if patient has illness, chronic, debilitating, or severe. TOTAL POINTS: If total points are 7-10, the proposed clinical action is to hospitalize or commit. Implement suicide precautions. Patient uses daily. 21:15 Safety Checks: Personal items have been removed. Door is open. [facility]. sitter at bedside. 21:15 Interventions: Removed personal items and placed in bag. Patient placed in hospital ak gown. Searched person for dangerous items. Urine collected and sent for urine drug test. Belonging list filled out. Commitment: Patient will be a voluntary commitment. Vital Signs: 20:30 BP 122 / 92; Pulse 96; Resp 18; Temp 98.5(O); Pulse Ox 100% on R/A; Weight 63.5 kg (R); Height 5 ft. 3 in. (160.02 cm) (R); Pain 01/29; 05/20 00:36 BP 116 / 86; Pulse 90; Resp 16; Pulse Ox 98% ; ds4 04:19 BP 122 / 96; Pulse 70; Resp 16; Pulse Ox 100% on R/A; jw5 05/19 20:30 Body Mass Index 24.80 (63.50 kg, 160.02 cm) ED Course: 05/19 20:30 Arm band placed on Patient placed in an exam room, on a stretcher. fc 20:33 Patient arrived in ED. ak1 20:41 Sulaiman Hawkins MD is Attending Physician. ps1 20:45 Safety Checks: Personal items have been removed. The door is open or patient has been ak1 placed in a hallway bed/chair. There are no family/friend visitors at this time Sitter present at this time. 20:54 Breanne Chilel, ROBERTO is Primary Nurse. ak1 21:00 Safety Checks: Personal items have been removed. The door is open or patient has been ak1 placed in a hallway bed/chair. There are no family/friend visitors at this time Sitter present at this time. 21:01 Triage completed. 21:15 Safety Checks: Personal items have been removed. The door is open or patient has been ak1 placed in a hallway bed/chair. There are no family/friend visitors at this time Sitter present at this time. 21:30 Safety Checks: Personal items have been removed. The door is open or patient has been ak1 placed in a hallway bed/chair. There are no family/friend visitors at this time Sitter present at this time. 21:32 Patient has correct armband on for positive identification. Placed in gown. Bed in low ak1 position. Side rails up X2. 21:32 Initial lab(s) drawn, by ED staff, sent to lab. Urine collected: clean catch specimen, ak1 EKG done, by ED staff, reviewed by Sulaiman Hawkins MD. Inserted saline lock: 18 gauge in right antecubital area, using aseptic technique. ,using aseptic technique. placed by Rohan Nicole Blood collected. 21:45 Safety Checks: Personal items have been removed. The door is open or patient has been ak1 placed in a hallway bed/chair. There are no family/friend visitors at this time Sitter present at this time. 22:00 Safety Checks: Personal items have been removed. The door is open or patient has been ak1 placed in a hallway bed/chair. There are no family/friend visitors at this time Sitter present at this time. 22:15 Safety Checks: Personal items have been removed. The door is open or patient has been ak1 placed in a hallway bed/chair. There are no family/friend visitors at this time Sitter present at this time. 22:30 Safety Checks: Personal items have been removed. The door is open or patient has been ak1 placed in a hallway bed/chair. There are no family/friend visitors at this time Sitter present at this time. 22:30 Safety Checks: Personal items have been removed. The door is open or patient has been ak1 placed in a hallway bed/chair. There are no family/friend visitors at this time Sitter present at this time. 22:45 Safety Checks: Personal items have been removed. The door is open or patient has been ak1 placed in a hallway bed/chair. There are no family/friend visitors at this time Sitter present at this time. 23:00 Safety Checks: Personal items have been removed. The door is open or patient has been ak1 placed in a hallway bed/chair. There are no family/friend visitors at this time Sitter present at this time. 23:15 Safety Checks: Personal items have been removed. The door is open or patient has been ak1 placed in a hallway bed/chair. There are no family/friend visitors at this time Sitter present at this time. 23:30 Safety Checks: Personal items have been removed. The door is open or patient has been ak1 placed in a hallway bed/chair. There are no family/friend visitors at this time Sitter present at this time. 23:45 Safety Checks: Personal items have been removed. The door is open or patient has been ak1 placed in a hallway bed/chair. There are no family/friend visitors at this time Sitter present at this time. 05/20 00:00 Safety Checks: Personal items have been removed. The door is open or patient has been ak1 placed in a hallway bed/chair. There are no family/friend visitors at this time Sitter present at this time. 00:15 Safety Checks: Personal items have been removed. The door is open or patient has been ak1 placed in a hallway bed/chair. There are no family/friend visitors at this time Sitter present at this time. 00:30 Safety Checks: Personal items have been removed. The door is open or patient has been ak1 placed in a hallway bed/chair. There are no family/friend visitors at this time Sitter present at this time. 00:45 Safety Checks: Personal items have been removed. The door is open or patient has been ak1 placed in a hallway bed/chair. There are no family/friend visitors at this time Sitter present at this time. 01:00 Safety Checks: Personal items have been removed. The door is open or patient has been ak1 placed in a hallway bed/chair. There are no family/friend visitors at this time Sitter present at this time. 01:15 Safety Checks: Personal items have been removed. The door is open or patient has been ak1 placed in a hallway bed/chair. There are no family/friend visitors at this time Sitter present at this time. 01:30 Safety Checks: Personal items have been removed. The door is open or patient has been ak1 placed in a hallway bed/chair. There are no family/friend visitors at this time Sitter present at this time. 01:30 Safety checks: Items removed: yes. Door open/sign placed on door: yes. Family/friend ds4 present: no. Sitter present: Yes. 01:45 Safety Checks: Personal items have been removed. The door is open or patient has been ak1 placed in a hallway bed/chair. There are no family/friend visitors at this time Sitter present at this time. 01:45 Safety checks: Items removed: yes. Door open/sign placed on door: yes. Family/friend ds4 present: no. Sitter present: Yes. 02:00 Safety Checks: Personal items have been removed. The door is open or patient has been ak1 placed in a hallway bed/chair. There are no family/friend visitors at this time Sitter present at this time. 02:10 Safety checks: Items removed: yes. Door open/sign placed on door: yes. Family/friend ds4 present: no. Sitter present: Yes. 02:15 Safety Checks: Personal items have been removed. The door is open or patient has been ak1 placed in a hallway bed/chair. There are no family/friend visitors at this time Sitter present at this time. 02:15 Safety checks: Items removed: yes. Door open/sign placed on door: yes. Family/friend jw5 present: no. Sitter present: Yes. 02:30 Safety Checks: Personal items have been removed. The door is open or patient has been ak1 placed in a hallway bed/chair. There are no family/friend visitors at this time Sitter present at this time. 02:30 Safety checks: Items removed: yes. Door open/sign placed on door: yes. Family/friend jw5 present: no. Sitter present: Yes. 02:45 Safety Checks: Personal items have been removed. The door is open or patient has been ak1 placed in a hallway bed/chair. There are no family/friend visitors at this time Sitter present at this time. 02:45 Safety checks: Items removed: yes. Safety checks: Door open/sign placed on door: yes. jw5 Family/friend present: no. Sitter present: Yes. 03:00 Safety Checks: Personal items have been removed. The door is open or patient has been ak1 placed in a hallway bed/chair. There are no family/friend visitors at this time Sitter present at this time. 03:00 Safety checks: Items removed: yes. Safety checks: Door open/sign placed on door: yes. jw5 Family/friend present: no. Sitter present: Yes. 03:15 Safety Checks: Personal items have been removed. The door is open or patient has been ak1 placed in a hallway bed/chair. There are no family/friend visitors at this time Sitter present at this time. 03:15 Safety checks: Items removed: yes. Door open/sign placed on door: yes. Family/friend jw5 present: no. Sitter present: Yes. 03:30 Safety checks: Items removed: yes. Door open/sign placed on door: yes. Family/friend jw5 present: no. Sitter present: Yes. 03:45 Safety checks: Items removed: yes. Door open/sign placed on door: yes. Family/friend jw5 present: no. Sitter present: Yes. 04:00 Safety checks: Items removed: yes. Door open/sign placed on door: yes. Family/friend jw5 present: no. Sitter present: Yes. 04:15 Safety checks: Items removed: yes. Door open/sign placed on door: yes. Family/friend jw5 present: no. Sitter present: Yes. 04:30 Safety checks: Items removed: yes. Door open/sign placed on door: yes. Family/friend jw5 present: no. Sitter present: Yes. 04:45 Safety checks: Items removed: yes. Door open/sign placed on door: yes. Family/friend jw5 present: no. Sitter present: Yes. 05:00 Safety checks: Items removed: yes. Door open/sign placed on door: yes. Family/friend jw5 present: no. Sitter present: Yes. 05:15 Safety checks: Items removed: yes. Door open/sign placed on door: yes. Family/friend jw5 present: no. Sitter present: Yes. 05:30 Safety checks: Items removed: yes. Door open/sign placed on door: yes. Family/friend jw5 present: no. Sitter present: Yes. 05:45 Safety checks: Items removed: yes. Door open/sign placed on door: yes. Family/friend jw5 present: no. Sitter present: Yes. 06:00 Safety checks: Items removed: yes. Door open/sign placed on door: yes. Family/friend jw5 present: no. Sitter present: Yes. 06:19 No provider procedures requiring assistance completed. pt removed his IV. bleeding ak1 controlled. Administered Medications: No medications were administered Outcome: 06:04 Discharge ordered by . ps1 06:19 Discharged to [facility] voucher provided for pt to have transportation home. ak1 06:19 Condition: improved 06:19 Discharge instructions given to patient, Instructed on discharge instructions, follow up and referral plans. 06:36 Patient left the ED. ak1 Signatures: Sarah Beth Luu RN RN fc Swanson, Donovan ds4 Breanne Chilel RN RN ak1 Sulaiman Hawkins MD MD ps1 Monique Thacker jw5
--- NOTE | 2018-05-20 06:06 | EDPHYS ---
Physician Documentation [facility] Name: Walt eVlazquez Age: 47 yrs Sex: Male : 1970 Arrival Date: 05/19/2018 Time: 20:33 Bed 25 Private MD: ED Physician Sulaiman Hawkins HPI: 05/19 21:10 This 47 yrs old Male presents to ER via EMS with complaints of Suicidal ps1 Ideation. 21:10 patient has a long history of psychiatric problems. Presenting with homicidal ideations ps1 and ETOH intoxication. Patient states he does not have control of the hate he has for other people. Made round about threats to myself and staff, indirectly and tried to be joking. Not taking his psych medications secondary to financial problems. . Historical: - Allergies: 21:32 Trazodone; ak1 - Home Meds: 21:32 Dilantin Oral 100 mg three times a day [Active]; Risperdal Oral once daily [Active]; ak1 Ritalin Oral [Active]; - PMHx: 21:32 Alcoholism; Bipolar disorder; DT; pancreatic cancer; Parkinsons; Seizures; ak1 - Immunization history:: Last tetanus immunization: unknown, Flu vaccine status is unknown. - Social history:: Smoking status: Patient/guardian denies using tobacco, Patient uses alcohol, on a daily basis. Patient/guardian denies using street drugs, the patient reports quitting approximately 1 years ago. - Ebola Screening: : Patient negative for fever greater than or equal to 101.5 degrees Fahrenheit, and additional compatible Ebola Virus Disease symptoms Patient denies exposure to infectious person Patient denies travel to an Ebola-affected area in the 21 days before illness onset. ROS: 21:10 Unable to obtain ROS due to Psychiatric condition and ETOH intoxication. . ps1 Exam: 21:10 Constitutional: This is a well developed, well nourished patient who is awake, alert, ps1 and in no acute distress. Head/Face: Normocephalic, atraumatic. Eyes: Pupils equal round and reactive to light, extra-ocular motions intact. Lids and lashes normal. Conjunctiva and sclera are non-icteric and not injected. Chest/axilla: Normal chest wall appearance and motion. Nontender with no deformity. No lesions are appreciated. Cardiovascular: Regular rate and rhythm. No gallops, murmurs, or rubs. Normal PMI, no JVD. No pulse deficits. Respiratory: Lungs have equal breath sounds bilaterally, clear to auscultation and percussion. No rales, rhonchi or wheezes noted. No increased work of breathing, no retractions or nasal flaring. Abdomen/GI: Soft, non-tender, with normal bowel sounds. No distension or tympany. No guarding or rebound. No evidence of tenderness throughout. Neuro: Awake and alert, GCS 15, oriented to person, place, time, and situation. Cranial nerves II-XII grossly intact. Sensory grossly intact. 21:10 Skin: dirt covered. Appears disheveled and homeless. ETOH on or about the person. . 21:10 Psych: Behavior/mood is aggressive, angry, Affect is animated, Oriented to person, place, time, Patient having thoughts of homicide. Denies plan. Homicidal thoughts directed towards anyone that upsets him Vital Signs: 20:30 BP 122 / 92; Pulse 96; Resp 18; Temp 98.5(O); Pulse Ox 100% on R/A; Weight 63.5 kg (R); fc Height 5 ft. 3 in. (160.02 cm) (R); Pain 01/29; 05/20 00:36 BP 116 / 86; Pulse 90; Resp 16; Pulse Ox 98% ; ds4 04:19 BP 122 / 96; Pulse 70; Resp 16; Pulse Ox 100% on R/A; jw5 05/19 20:30 Body Mass Index 24.80 (63.50 kg, 160.02 cm) fc MDM: 05/19 21:33 Patient medically screened. ps1 05/20 06:05 Data reviewed: vital signs, nurses notes, lab test result(s). ED course: on ps1 reevaluation, patient had clinical sobriety, no homicidal ideations, states he was just drunk and mad, ambulating on own accord. . 05/19 21:10 Order name: Acetaminophen; Complete Time: 22:38 ps1 05/19 21:10 Order name: Basic Metabolic Panel; Complete Time: 22:38 ps1 05/19 21:10 Order name: CBC with Diff; Complete Time: 22:39 ps1 05/19 21:10 Order name: ETOH Level; Complete Time: 22:39 ps1 05/19 21:10 Order name: Hepatic Function; Complete Time: 22:39 [facility] 05/19 21:10 Order name: PT-INR; Complete Time: 22:39 [facility] 05/19 21:10 Order name: Ptt, Activated; Complete Time: 22:39 ps1 05/19 21:10 Order name: Salicylate; Complete Time: 22:39 ps1 05/19 21:10 Order name: Urine Drug Screen; Complete Time: 22:39 [facility] 05/19 21:10 Order name: EKG; Complete Time: 21:11 [facility] 05/19 21:10 Order name: EKG - Nurse/Tech; Complete Time: 21:36 ps1 05/19 21:10 Order name: IV Saline Lock; Complete Time: 21:36 [facility] 05/19 21:10 Order name: Labs collected and sent; Complete Time: 21:36 [facility] 05/19 21:37 Order name: Urine Dipstick--Ancillary (enter results); Complete Time: 22:39 ds4 05/19 21:10 Order name: Urine Dipstick-Ancillary (obtain specimen); Complete Time: 21:36 ps1 Administered Medications: No medications were administered Disposition: 06:07 Chart complete. ps1 Disposition: 05/20/18 06:04 Discharged to Home. Impression: ETOH intoxication. - Condition is Stable. - Discharge Instructions: Alcohol Intoxication. - Medication Reconciliation Form, Thank You Letter, Antibiotic Education, Prescription Opioid Use form. - Follow up: Private Physician; When: Today; Reason: Recheck today's complaints, Continuance of care, Re-evaluation by your physician. Follow up: Emergency Department; When: As needed; Reason: Worsening of condition. - Problem is an ongoing problem. - Symptoms have improved. Signatures: Dispatcher [employer] EDSarah Beth Cheek RN RN Breanne Rob RN RN ak1 Sulaiman Hawkins MD MD ps1 Corrections: (The following items were deleted from the chart) 06:36 06:04 05/20/2018 06:04 Discharged to Home. Impression: ETOH intoxication. Condition is ak1 Stable. Forms are Medication Reconciliation Form, Thank You Letter, Antibiotic Education, Prescription Opioid Use. Follow up: Private Physician; When: Today; Reason: Recheck today's complaints, Continuance of care, Re-evaluation by your physician. Follow up: Emergency Department; When: As needed; Reason: Worsening of condition. Problem is an ongoing problem. Symptoms have improved. ps1
--- NOTE | 2018-05-20 07:15 | EKG ---
Test Date: 2018-05-19 Test Time: 21:08:55 Tailor Apprentice: VALERIE MEASUREMENT RESULTS: Intervals: Rate: 80 [place]: 176 QRSD: 72 QT: 350 QTc: 403 Datil: P: 43 [place]: 176 QRS: 36 T: 24 INTERPRETIVE STATEMENTS: Normal sinus rhythm Normal ECG Compared to ECG 05/17/2018 20:40:02 No significant changes Electronically Signed On 05-20-18 07:14:47 POLISHING MACHINE OPERATOR HELPER by Barron Kumar
[2018-05-20 07:45] VITALS: TEMP 98.5
[2018-05-20 07:48] VITALS: BP 122/96; O2SAT 100
== END 2018-05-20 06:36 | disposition home or self-care (01) ==
LOC: ER 20:30
DX: F10.229 Alcohol dependence with intoxication, unspecified (principal); F31.9 Bipolar disorder, unspecified; Z85.07 Personal history of malignant neoplasm of pancreas; Z88.5 Allergy status to narcotic agent
CPT/HCPCS: 36415; 80048; 80076; 80307; 80320; 80329; 81003; 85025; 85610; 85730; 93005; 99285

== ENCOUNTER 2018-05-20 16:07 | Emergency (ER) | payer SELFPAY ==
--- NOTE | 2018-05-20 17:35 | ER ---
Nurse's Notes [facility] Name: Walt Velazquez Age: 47 yrs Sex: Male : 1970 Arrival Date: 05/20/2018 Time: 16:11 Bed 30 Private MD: Diagnosis: Presentation: 05/20 16:11 Presenting complaint: EMS states: We received a call for someone with medical problems. ed1 Transition of care: patient was not received from another setting of care. Onset of symptoms was May 20, 2018. Risk Assessment: Do you want to hurt yourself or someone else? Patient reports no desire to harm self or others. Initial Sepsis Screen: Does the patient meet any 2 criteria? No. Patient's initial sepsis screen is negative. Does the patient have a suspected source of infection? No. Patient's initial sepsis screen is negative. Care prior to arrival: Medication(s) given: Oral glucose Glucose was initially 64, after oral glucose came up to 104. 16:11 Method Of Arrival: EMS: [facility] ed1 17:33 Acuity: LATASHA 3 rv Triage Assessment: 16:14 General: Appears unkempt, Behavior is anxious. Pain: Denies pain. Cardiovascular: ed1 Denies chest pain, Heart tones S1 S2 present. Respiratory: Airway is patent Respiratory effort is even, unlabored, Respiratory pattern is regular, symmetrical, Breath sounds are clear bilaterally. GI: No signs and/or symptoms were reported involving the gastrointestinal system. : No signs and/or symptoms were reported regarding the genitourinary system. Derm: Skin is pink, warm \T\ dry. Historical: - Allergies: 16:14 Trazodone; ed1 - Home Meds: 16:14 Dilantin Oral 100 mg three times a day [Active]; Risperdal Oral once daily [Active]; ed1 Ritalin Oral [Active]; - PMHx: 16:14 Alcoholism; Bipolar disorder; DT; pancreatic cancer; Parkinsons; Seizures; ed1 - PSHx: 16:14 Unable to obtain; ed1 - Immunization history:: Adult Immunizations unknown. - Social history:: Smoking status: Patient uses tobacco products, smokes one-half pack cigarettes per day, Patient uses alcohol, on a daily basis. - Ebola Screening: : Patient negative for fever greater than or equal to 101.5 degrees Fahrenheit, and additional compatible Ebola Virus Disease symptoms Patient denies exposure to infectious person Patient denies travel to an Ebola-affected area in the 21 days before illness onset No symptoms or risks identified at this time. Screenin:33 Abuse screen: Denies threats or abuse. Denies injuries from another. Nutritional rv screening: No deficits noted. Tuberculosis screening: No symptoms or risk factors identified. Fall Risk None identified. Vital Signs: 16:14 BP 110 / 78; Pulse 81; Resp 18; Temp 97.5(O); Pulse Ox 100% on R/A; Pain 0/10; ed1 ED Course: 16:11 Patient arrived in ED. ed1 16:14 Arm band placed on left wrist. ed1 16:30 Inserted saline lock: 20 gauge in right forearm, using aseptic technique. Blood rv collected. 16:55 Rigo Cherry PA is PHCP. jr8 16:55 Rudy Chavez MD is Attending Physician. jr8 17:33 Triage completed. rv 17:33 No provider procedures requiring assistance completed. rv Administered Medications: No medications were administered Point of Care Testing: Blood Glucose: 16:41 Blood Glucose: 109 mg/dL; rv Ranges: Outcome: 17:34 Patient left the ED. iw 17:34 Eloped from patient exam room, before seeing physician Time discovered patient gone: rv May 20, 2018 at 17:15 17:34 Condition: still have his IV on his right arm. Signatures: Marita Henrandez, RN RN iw iPlar Fraire, PARING MACHINE OPERATOR PARING MACHINE OPERATOR ed1 Rigo Cherry PA PA jr8 Chi Silverio RN RN rv
--- NOTE | 2018-05-20 17:36 | EDPHYS ---
Physician Documentation [facility] Name: Walt Velazquez Age: 47 yrs Sex: Male : 1970 Arrival Date: 05/20/2018 Time: 16:11 Bed 30 Private MD: ED Physician Rudy Chavez Historical: - Allergies: 05/20 16:14 Trazodone; ed1 - Home Meds: 16:14 Dilantin Oral 100 mg three times a day [Active]; Risperdal Oral once daily [Active]; ed1 Ritalin Oral [Active]; - PMHx: 16:14 Alcoholism; Bipolar disorder; DT; pancreatic cancer; Parkinsons; Seizures; ed1 - PSHx: 16:14 Unable to obtain; ed1 - Immunization history:: Adult Immunizations unknown. - Social history:: Smoking status: Patient uses tobacco products, smokes one-half pack cigarettes per day, Patient uses alcohol, on a daily basis. - Ebola Screening: : Patient negative for fever greater than or equal to 101.5 degrees Fahrenheit, and additional compatible Ebola Virus Disease symptoms Patient denies exposure to infectious person Patient denies travel to an Ebola-affected area in the 21 days before illness onset No symptoms or risks identified at this time. Vital Signs: 16:14 BP 110 / 78; Pulse 81; Resp 18; Temp 97.5(O); Pulse Ox 100% on R/A; Pain 0/10; ed1 MDM: 16:55 Patient medically screened. jr8 Administered Medications: No medications were administered Point of Care Testing: Blood Glucose: 16:41 Blood Glucose: 109 mg/dL; rv Ranges: Critical Glucose Levels:Adult <50 mg/dl or >400 mg/dl <40 mg/dl or >180 mg/dl Disposition: 05/20/18 17:34 Patient left the facility before being seen by provider. - Patient left due to unknown. Signatures: Marita Hernandez RN RN iw Pilar Fraire LVN LVN ed1 Rigo Cherry PA PA jr8 Corrections: (The following items were deleted from the chart) 17:34 17:34 05/20/2018 17:34 Patient left the facility before being seen by provider. Reason iw stated they are leaving due to unknown. jr8
[2018-05-20 18:11] VITALS: BP 110/78; TEMP 97.5; O2SAT 100
== END 2018-05-20 17:34 | disposition left against medical advice (07) ==
LOC: ER 16:07
DX: Z53.21 Procedure and treatment not carried out due to patient leaving prior to being seen by health care provider (principal)
CPT/HCPCS: 82962; 99283

== ENCOUNTER 2018-05-22 19:28 | Emergency (ER) | payer SELFPAY ==
[2018-05-22 20:15] LABS: Absolute Lymphocytes (CBC) 1.8 K/uL (0.7-4.9); Absolute Monocytes 0.4 K/uL (0.1-1.3); Absolute Neutrophil 1.6 K/uL (1.8-8.0); Basophils % 1.8 % (0-1.3); Hematocrit 34.3 % (39.6-49.0); MCH 30.6 pg (27.0-35.0); MCV 92.2 fL (80-100); MPV 6.8 fL (7.6-11.3); Monocytes % 9.4 % (3.3-12.3); RBC Red Blood Cell Count 3.72 M/uL (4.33-5.43)
[2018-05-22] MEDS ORDERED: NA CHLORIDE 0.9% 1,000 ML ONE (20:18)
[2018-05-22] MEDS ORDERED: MULTIVITAMINS 10 ML VIAL (INJ) IV ONE (20:19)
[2018-05-22] MEDS ORDERED: THIAMINE 200 MG/2 ML INJ ONE (20:19)
[2018-05-22] MEDS ORDERED: FOLIC ACID 5 MG/ML VIAL ONE (20:21)
[2018-05-22 20:38] LABS: ALT/SGPT 17 U/L (12-78); AST/SGOT 20 U/L (15-37); Albumin 3.2 g/dL (3.4-5.0); Alkaline Phosphatase 128 U/L (45-117); BUN Blood Urea Nitrogen 11 mg/dL (7-18); Bicarbonate 27 mmol/L (21-32); Bilirubin Direct < 0.1 mg/dL (0-0.2); Bilirubin Total 0.2 mg/dL (0.2-1.0); Glucose Level 170 mg/dL (74-106); Lipase 67 U/L (73-393); Potassium 3.6 mmol/L (3.5-5.1); Protein, Total 7.2 g/dL (6.4-8.2); Sodium Level 144 mmol/L (136-145)
--- NOTE | 2018-05-22 21:52 | RAD REPORT ---
EXAM DESCRIPTION: CT - Head Brain Wo Cont - 05/22/2018 9:27 pm CLINICAL HISTORY: headache, AMS Drowsiness COMPARISON: Head Brain Wo Cont dated 05/07/2018; Head Brain Wo Cont dated 02/23/2018 TECHNIQUE: All CT scans are performed using dose optimization technique as appropriate and may inclu de automated exposure control or mA/KV adjustment according to patient size. FINDINGS: No intracranial hemorrhage, hydrocephalus or extra-axial fluid collection.Mild generalized brain atrophy noted.No areas of brain edema or evidence of midline shift. The paranasal sinuses and mastoids are clear. The calvarium is intact. IMPRESSION: No acute intracranial abnormality.
--- NOTE | 2018-05-22 21:54 | RAD REPORT ---
EXAM DESCRIPTION: CTAbdomen Pelvis W Contrast - 05/22/2018 9:27 pm CLINICAL HISTORY: Abdominal pain. IV contrast only, if creatinine normal COMPARISON: Abdomen Pelvis W Contrast dated 02/08/2018; Abdomen Pelvis W Contrast dated 06/23/2016 TECHNIQUE: Biphasic CT imaging of the abdomen and pelvis was performed with 100 ml non-ionic IV cont rast. All CT scans are performed using dose optimization technique as appropriate and may include automated exposure control or mA/KV adjustment according to patient size. FINDINGS: The exam is motion degraded. The lung bases are clear. The liver, spleen, pancreas, adrenal glands and kidneys are within normal limits. No bowel obstruction, free air, free fluid or abscess. The appendix is not identified as a discrete structure, however, no secondary findings of appendicitis are identified. No evidence of significan t lymphadenopathy. Moderate spinal degenerative changes. IMPRESSION: No acute intra-abdominal or pelvic finding.
--- NOTE | 2018-05-22 23:04 | ER ---
Nurse's Notes [facility] Name: Walt Velazquez Age: 47 yrs Sex: Male : 1970 Arrival Date: 05/22/2018 Time: 19:38 Bed 3 Private MD: Diagnosis: Alcohol abuse with intoxication Presentation: 05/22 19:42 Presenting complaint: EMS states: pt has been wandering around the city all day aa1 stumbling into different establishments. PD was notified about pt and therefore contacted EMS to transport pt to ED for evaluation. Pt presents to ED at his baseline orientation \T\ behavior. Admits to drinking 3-4 beers today. C/O aching all over. A\T\O x 4. Transition of care: patient was not received from another setting of care. Onset of symptoms was May 22, 2018. Risk Assessment: Do you want to hurt yourself or someone else? Patient reports no desire to harm self or others. Initial Sepsis Screen: Does the patient meet any 2 criteria? No. Patient's initial sepsis screen is negative. Does the patient have a suspected source of infection? No. Patient's initial sepsis screen is negative. Care prior to arrival: Medication(s) given: Normal saline infusion, Ativan 2 mg IVP IV initiated. 20 GA, in the right antecubital area, Glucose check: 88. 19:42 Method Of Arrival: EMS: [facility] aa1 19:42 Acuity: LATASHA 3 aa1 Triage Assessment: 19:42 General: Appears in no apparent distress. comfortable, slender, unkempt, Behavior is aa1 calm, cooperative, appropriate for age. Historical: - Allergies: 19:49 Trazodone; aa1 - PMHx: 19:49 Alcoholism; Bipolar disorder; DT; pancreatic cancer; Parkinsons; Seizures; Anxiety; aa1 Depression; - PSHx: 19:49 Unable to obtain; aa1 - Immunization history:: Adult Immunizations unknown. - Social history:: Smoking status: Patient uses tobacco products, denies chronic smoking, but will smoke occasionally, Patient uses alcohol. - Ebola Screening: : No symptoms or risks identified at this time. - Family history:: not pertinent. - Hospitalizations: : No recent hospitalization is reported. Screenin:50 Abuse screen: Denies threats or abuse. Denies injuries from another. Nutritional rr5 screening: No deficits noted. Tuberculosis screening: No symptoms or risk factors identified. Fall Risk Secondary diagnosis (15 points) alcohol intake. Gait- Normal/Bed Rest/Wheelchair (0 pts) Mental Status- Overestimates/Forgets Limitations (15 pts.). Total Cadena Fall Scale indicates Low Risk Score (25-44 pts). Fall prevention measures have been instituted. Side Rails Up X 2 Placed close to Nursing Station Frequent Obs/Assesments occuring. Assessment: 19:50 General: Appears in no apparent distress. comfortable, Behavior is calm, cooperative, rr5 drowsy, positive alcohol breath. 19:50 Pain: Complains of pain in all over the body Pain does not radiate. Pain currently is 5 rr5 out of 10 on a pain scale. Quality of pain is described as aching, Pain began gradually, Is intermittent. Neuro: Level of Consciousness is awake, obeys commands, drowsy- alcohol breath. Oriented to person. Cardiovascular: Capillary refill < 3 seconds Patient's skin is warm and dry. Respiratory: Airway is patent Respiratory effort is even, unlabored, Respiratory pattern is regular, symmetrical. GI: No signs and/or symptoms were reported involving the gastrointestinal system. : No signs and/or symptoms were reported regarding the genitourinary system. EENT: No signs and/or symptoms were reported regarding the EENT system. Derm: Wound noted abrasions at right hand. Musculoskeletal: Capillary refill < 3 seconds, Range of motion: intact in all extremities. 20:33 Reassessment: Patient appears in no apparent distress at this time. Patient and/or rr5 family updated on plan of care and expected duration. Pain level reassessed. asleep comfortably on bed. 21:32 Reassessment: Patient appears in no apparent distress at this time. No changes from aa1 previously documented assessment. Patient and/or family updated on plan of care and expected duration. Pain level reassessed. Pt back from CT at this time. 22:30 Reassessment: Patient appears in no apparent distress at this time. Patient and/or rr5 family updated on plan of care and expected duration. Pain level reassessed. asleep comfortably. negative for tremors. 23:26 Reassessment: ongoing IV fluid infusion for reassessment, for discharge after. rr5 05/23 00:05 Reassessment: IV infusion completed. GCS15/15 able to walk without assistance. consumed rr5 sandwich and soda. tolerated without complaint. explained discharge instruction. Vital Signs: 05/22 19:42 BP 105 / 67; Pulse 92; Resp 18; Temp 97.7; Pulse Ox 100% on R/A; Weight 54.43 kg (R); aa1 Height 5 ft. 3 in. (160.02 cm); Pain 8/10; 20:30 BP 106 / 70; Pulse 86; Resp 18; Pulse Ox 99% ; rr5 21:00 BP 110 / 75; Pulse 88; Resp 17; Pulse Ox 99% on R/A; rr5 21:34 BP 100 / 68; Pulse 93; Resp 18; Pulse Ox 100% on R/A; aa1 22:30 BP 94 / 68; Pulse 93; Resp 17; Pulse Ox 98% on R/A; rr5 23:29 BP 99 / 53; Pulse 91; Resp 17; Pulse Ox 98% ; rr5 05/23 00:05 BP 122 / 76; Pulse 99; Resp 18; Pulse Ox 99% ; rr5 05/22 19:42 Body Mass Index 21.26 (54.43 kg, 160.02 cm) aa1 ED Course: 05/22 19:38 Patient arrived in ED. fc 19:38 Kaiser Marie MD is Attending Physician. rn 19:39 Patient has correct armband on for positive identification. Placed in gown. Bed in low aa1 position. Call light in reach. Side rails up X2. shelter monitor on. Pulse ox on. NIBP on. Warm blanket given. 19:39 Maintain EMS IV. Dressing intact. Site clean \T\ dry. Gauge \T\ site: 20g RAC. aa 1 19:42 Arm band placed on right wrist. aa1 19:45 Triage completed. aa1 19:50 Inserted saline lock: 20 gauge in left forearm, using aseptic technique. Blood rr5 collected. 20:06 Migel Barrett, ROBERTO is Primary Nurse. rr5 21:15 Patient moved to OR via stretcher. rr5 21:27 CT completed. Patient moved back from OR. cw1 05/23 00:08 No provider procedures requiring assistance completed. IV discontinued, intact, rr5 bleeding controlled, No redness/swelling at site. Pressure dressing applied, bilateral IV cannula removed. Administered Medications: 12/01 19:53 Drug: NS 0.9% 1000 ml Route: IV; Rate: 1000 ml; Site: left forearm; aa1 20:30 Follow up: Response: No adverse reaction; IV Status: Completed infusion; IV Intake: rr5 1000ml 20:30 Drug: Banana Bag - (NS 0.9% 1000 ml, foLIC Acid 1 mg, Thiamine 100 mg, Multivitamin 1 rr5 amp) Route: IV; Rate: calculated rate; Site: left forearm; 23:50 Follow up: Response: No adverse reaction; IV Status: Completed infusion; IV Intake: rr5 1000ml Intake: 20:30 IV: 1000ml; Total: 1000ml. rr5 23:50 IV: 1000ml; Total: 2000ml. rr5 Output: 23:42 Urine: 500ml (Voided); Total: 500ml. rr5 Outcome: 23:03 Discharge ordered by . rn 05/23 00:08 Discharged to home ambulatory. rr5 Condition: stable Discharge instructions given to patient, Instructed on discharge instructions, follow up and referral plans. Demonstrated understanding of instructions, follow-up care. 00:09 Patient left the ED. rr5 Addendum: 05/27/2018 07:47 Addendum: Culture Results: Positive blood culture. Phone call Attempt #1 no answer, i w unable to leave voice mail. Signatures: Lexi Ontiveros RN RN aa1 Sarah Beth Luu RN Marita Carrington RN RN iw Nieto, Roman, MD MD rn Woodley, Crystal cw1 Migel Barrett RN RN rr5 Corrections: (The following items were deleted from the chart) 05/23 00:08 00:05 BP 122 / 96; Pulse 99bpm; Resp 18bpm; Pulse Ox 99%; rr5 rr5
--- NOTE | 2018-05-22 23:05 | EDPHYS ---
Physician Documentation [facility] Name: Walt Velazuqez Age: 47 yrs Sex: Male : 1970 Arrival Date: 05/22/2018 Time: 19:38 Bed 3 Private MD: ED Physician Kaiser Marie HPI: 05/22 20:26 This 47 yrs old Male presents to ER via EMS with complaints of dizzy. rn 20:26 Per EMS, patient has been wandering around town, not sure who called 911, patient has rn been here numerous times lately for ETOH related problems. Pt reports has been drinking ETOH today, reports fatigue, decreased appetite, and lower abd pain. NO vomiting, no GI bleeding. Denies fever/chest pain/headache. . Onset: The symptoms/episode began/occurred at an unknown time. Severity of symptoms: At their worst the symptoms were mild in the emergency department the symptoms are unchanged. The patient has experienced similar episodes in the past. The patient has been recently seen at the [facility] Emergency Department. Historical: - Allergies: 19:49 Trazodone; aa1 - PMHx: 19:49 Alcoholism; Bipolar disorder; DT; pancreatic cancer; Parkinsons; Seizures; Anxiety; aa1 Depression; - PSHx: 19:49 Unable to obtain; aa1 - Immunization history:: Adult Immunizations unknown. - Social history:: Smoking status: Patient uses tobacco products, denies chronic smoking, but will smoke occasionally, Patient uses alcohol. - Ebola Screening: : No symptoms or risks identified at this time. - Family history:: not pertinent. - Hospitalizations: : No recent hospitalization is reported. ROS: 20:26 Constitutional: Negative for fever, chills, and weight loss, Eyes: Negative for injury, rn pain, redness, and discharge, Neck: Negative for injury, pain, and swelling, Cardiovascular: Negative for chest pain, palpitations, and edema, Respiratory: Negative for shortness of breath, cough, wheezing, and pleuritic chest pain, Abdomen/GI: + abd pain, no nausea/vomiting/diarrhea : Negative for injury, bleeding, discharge, and swelling, MS/Extremity: Negative for injury and deformity, Skin: Negative for injury, rash, and discoloration, Neuro: Generalized weakness Exam: 20:26 Constitutional: Thin male, no acute distress, smiling. + smells of ETOH. Head/Face: rn Normocephalic, atraumatic. ENT: dry MM Cardiovascular: Regular rate and rhythm with a normal S1 and S2. No gallops, murmurs, or rubs. Normal PMI, no JVD. No pulse deficits. Respiratory: Lungs have equal breath sounds bilaterally, clear to auscultation and percussion. No rales, rhonchi or wheezes noted. No increased work of breathing, no retractions or nasal flaring. Abdomen/GI: soft, non-tender, no rebound, no masses MS/ Extremity: Pulses equal, no cyanosis. Neurovascular intact. Full, normal range of motion. Equal circumference. Neuro: Awake and alert, GCS 15, oriented to person, place, time, and situation. Cranial nerves II-XII grossly intact. Motor strength 5/5 in all extremities. Sensory grossly intact. Vital Signs: 19:42 BP 105 / 67; Pulse 92; Resp 18; Temp 97.7; Pulse Ox 100% on R/A; Weight 54.43 kg (R); aa1 Height 5 ft. 3 in. (160.02 cm); Pain 8/10; 20:30 BP 106 / 70; Pulse 86; Resp 18; Pulse Ox 99% ; rr5 21:00 BP 110 / 75; Pulse 88; Resp 17; Pulse Ox 99% on R/A; rr5 21:34 BP 100 / 68; Pulse 93; Resp 18; Pulse Ox 100% on R/A; aa1 22:30 BP 94 / 68; Pulse 93; Resp 17; Pulse Ox 98% on R/A; rr5 23:29 BP 99 / 53; Pulse 91; Resp 17; Pulse Ox 98% ; rr5 05/23 00:05 BP 122 / 76; Pulse 99; Resp 18; Pulse Ox 99% ; rr5 05/22 19:42 Body Mass Index 21.26 (54.43 kg, 160.02 cm) aa MDM: 05/22 19:38 Patient medically screened. rn 23:03 Differential Diagnosis altered mental status, dehydration, ETOH intoxication. Data rn reviewed: vital signs, nurses notes, lab test result(s), radiologic studies, CT scan, and as a result, I will discharge patient. Counseling: I had a detailed discussion with the patient and/or guardian regarding: the historical points, exam findings, and any diagnostic results supporting the discharge/admit diagnosis, lab results, radiology results, the need for outpatient follow up, to return to the emergency department if symptoms worsen or persist or if there are any questions or concerns that arise at home. Special discussion: I discussed with the patient/guardian in detail that at this point there is no indication for admission to the hospital. It is understood, however, that if the symptoms persist or worsen the patient needs to return immediately for re-evaluation. 05/22 19:40 Order name: Basic Metabolic Panel rn 05/22 19:40 Order name: CBC with Diff rn 05/22 19:40 Order name: Hepatic Function rn 05/22 19:40 Order name: Lipase rn 05/22 19:40 Order name: ETOH Level rn 05/22 19:40 Order name: Blood Culture Adult (2) rn 05/22 19:40 Order name: CT Abd/Pelvis - W/Contrast rn 05/22 20:16 Order name: CBC with Automated Diff; Complete Time: 20:48 EDCO 05/22 20:32 Order name: Alcohol Serum/Plasma; Complete Time: 20:48 EDCO 05/22 20:38 Order name: Basic Metabolic Panel; Complete Time: 20:48 EDMS 05/22 20:38 Order name: Liver (Hepatic) Function; Complete Time: 20:48 EDMS 05/22 20:38 Order name: Lipase; Complete Time: 20:48 EDMS 05/22 23:46 Order name: Urine Dipstick--Ancillary (enter results) em1 05/23 00:02 Order name: Urine Dipstick-Ancillary EDCO 05/22 19:40 Order name: IV Saline Lock; Complete Time: 19:54 rn 05/22 19:40 Order name: Labs collected and sent; Complete Time: 19:53 rn 05/22 19:40 Order name: Urine Dipstick-Ancillary (obtain specimen); Complete Time: 23:42 rn 05/22 19:40 Order name: CT Head Brain wo Cont rn 05/22 21:52 Order name: CT; Complete Time: 23:02 EDCO 05/22 21:55 Order name: CT; Complete Time: 23:02 EDMS Administered Medications: 19:53 Drug: NS 0.9% 1000 ml Route: IV; Rate: 1000 ml; Site: left forearm; aa1 20:30 Follow up: Response: No adverse reaction; IV Status: Completed infusion; IV Intake: rr5 1000ml 20:30 Drug: Banana Bag - (NS 0.9% 1000 ml, foLIC Acid 1 mg, Thiamine 100 mg, Multivitamin 1 rr5 amp) Route: IV; Rate: calculated rate; Site: left forearm; 23:50 Follow up: Response: No adverse reaction; IV Status: Completed infusion; IV Intake: rr5 1000ml Disposition: 05/22/18 23:03 Discharged to Home. Impression: Alcohol abuse with intoxication. - Condition is Stable. - Discharge Instructions: Alcohol Intoxication, Dehydration, Adult. - Medication Reconciliation Form, Thank You Letter, Antibiotic Education, Prescription Opioid Use form. - Follow up: Private Physician; When: As needed; Reason: Recheck today's complaints, Re-evaluation by your physician. - Problem is new. - Symptoms have improved. Signatures: Dispatcher [employer] EDMS Lexi Ontiveros RN RN aa1 Kaiser Marie MD MD rn Roque, Raymond, RN RN rr5 Corrections: (The following items were deleted from the chart) 05/23 00:09 12 23:03 05/22/2018 23:03 Discharged to Home. Impression: Alcohol abuse with rr5 intoxication. Condition is Stable. Forms are Medication Reconciliation Form, Thank You Letter, Antibiotic Education, Prescription Opioid Use. Follow up: Private Physician; When: As needed; Reason: Recheck today's complaints, Re-evaluation by your physician. Problem is new. Symptoms have improved. rn
[2018-05-23 00:01] LABS: Urine Blood NEGATIVE (NEG); Urine Glucose NEGATIVE (NEG); Urine Specific Gravity 1.015 (1.005-1.030); Urine pH 5.5 (5.0-7.0)
[2018-05-23 00:02] LABS: Urine Protein NEGATIVE (NEG)
[2018-05-23 01:10] VITALS: TEMP 97.7
[2018-05-23 01:17] VITALS: BP 122/76; O2SAT 99
== END 2018-05-23 00:09 | disposition home or self-care (01) ==
LOC: ER 19:28
DX: F10.229 Alcohol dependence with intoxication, unspecified (principal); G20 Parkinson's disease; Z85.07 Personal history of malignant neoplasm of pancreas; Z72.0 Tobacco use; Z88.5 Allergy status to narcotic agent
CPT/HCPCS: 36415; 70450; 74177; 80048; 80076; 80320; 81003; 83690; 85025; 87040; 87077; 87186; 87205; 96361; 96365; 96366; 99285; J3411; J7030; Q9967

== ENCOUNTER 2020-06-11 11:40 | Emergency (ER) | payer SELFPAY ==
[2020-06-11] MEDS ORDERED: PHENYTOIN Inj 1,000 MG in NA CHLORIDE 0.9% 100 ML IV ONE (12:30)
[2020-06-11 12:31] LABS: Absolute Lymphocytes (CBC) 1.9 K/uL (0.7-4.9); Basophils % 0.7 % (0-1.3); Hematocrit 47.7 % (39.6-49.0); Lymphocytes % 44.5 % (15.3-44.8); MPV 6.7 fL (7.6-11.3); RBC Red Blood Cell Count 4.94 M/uL (4.33-5.43)
[2020-06-11] MEDS ORDERED: NA CHLORIDE 0.9% 1,000 ML ONE (12:38)
[2020-06-11 12:45] LABS: BUN Blood Urea Nitrogen 4 mg/dL (7-18); Bicarbonate 31 mmol/L (21-32); Glucose Level 147 mg/dL (74-106); Sodium Level 143 mmol/L (136-145)
--- NOTE | 2020-06-11 13:15 | RAD REPORT ---
EXAM DESCRIPTION: RAD - Ankle Left 3 View - 06/11/2020 1:06 pm CLINICAL HISTORY: PAIN COMPARISON: No comparisons FINDINGS: Mild diffuse osteopenia is seen. No acute fracture or dislocation seen. Vascular calcifica tion is evident.
--- NOTE | 2020-06-11 14:24 | ER ---
Nurse's Notes [facility] Name: Walt Velazquez Age: 49 yrs Sex: Male : 1970 Arrival Date: 06/11/2020 Time: 11:42 Bed 17 Private MD: Diagnosis: Epilepsy and recurrent seizures;Dehydration;Sprain of unspecified ligament of left ankle Presentation: 06/11 11:45 Chief complaint: EMS states: SZ LIKE ACTIVITY WITNESSED BY BYSTANDER. Coronavirus bp screen: At this time, the client does not indicate any symptoms associated with coronavirus-19. Ebola Screen: No symptoms or risks identified at this time. Initial Sepsis Screen: Does the patient meet any 2 criteria? No. Patient's initial sepsis screen is negative. Does the patient have a suspected source of infection? No. Patient's initial sepsis screen is negative. Risk Assessment: Do you want to hurt yourself or someone else? Patient reports no desire to harm self or others. Note PT AT BASELINE. CHRONICALLY NON-COMPLIANT. Onset of symptoms is unknown. 11:45 Method Of Arrival: EMS: [facility] bp 11:45 Acuity: LATASHA 3 bp Triage Assessment: 11:48 General: Appears in no apparent distress. comfortable, Behavior is cooperative, bp anxious. Pain: Denies pain. EENT: No deficits noted. Neuro: Level of Consciousness is awake, obeys commands, Oriented to AT BASELINE. Seizure activity reported prior to arrival. Cardiovascular: No deficits noted. Respiratory: No deficits noted. GI: No signs and/or symptoms were reported involving the gastrointestinal system. : No signs and/or symptoms were reported regarding the genitourinary system. Derm: No deficits noted. Musculoskeletal: No deficits noted. Historical: - Allergies: 11:48 Trazodone; bp - PMHx: 11:48 Alcoholism; Anxiety; Bipolar disorder; Depression; DT; pancreatic cancer; Parkinsons; bp Seizures; - Immunization history:: Adult Immunizations unknown. - Social history:: Smoking status: Patient reports the use of cigarette tobacco products, unknown amount. - Family history:: not pertinent. - Hospitalizations: : No recent hospitalization is reported. Screenin:49 Abuse screen: Denies threats or abuse. Denies injuries from another. Nutritional bp screening: No deficits noted. Tuberculosis screening: No symptoms or risk factors identified. Fall Risk None identified. Assessment: 11:49 General: SEE TRIAGE NOTE. bp 12:20 Reassessment: Patient appears in no apparent distress at this time. No changes from bp previously documented assessment. Patient and/or family updated on plan of care and expected duration. Pain level reassessed. Patient is alert, oriented x 3, equal unlabored respirations, skin warm/dry/pink. MED REQUESTED FROM PHARMACY. 12:28 Reassessment: SISTER: MANINDER BUSTILLO [phone]. bp 13:30 Reassessment: Patient appears in no apparent distress at this time. No changes from bp previously documented assessment. Patient and/or family updated on plan of care and expected duration. Pain level reassessed. Patient is alert, oriented x 3, equal unlabored respirations, skin warm/dry/pink. DISPO PENDING. NO FURTHER SZ ACTIVITY. 14:32 Reassessment: PT D/C HOME WITH FAMILY, DX WITH EPILEPSY. bp Vital Signs: 11:45 BP 110 / 72; Pulse 75; Resp 16; Temp 98.2; Pulse Ox 98% ; bp 12:29 BP 97 / 69; Pulse 67; Resp 12; Pulse Ox 100% ; bp 13:30 BP 100 / 46; Pulse 66; Resp 13; Pulse Ox 100% ; bp 14:32 BP 100 / 68; Pulse 72; Resp 16; Temp 98; Pulse Ox 100% ; bp ED Course: 11:42 Patient arrived in ED. iw 11:45 James Cantu, RN is Primary Nurse. bp 11:47 Triage completed. bp 11:49 Arm band placed on. bp 11:50 Patient has correct armband on for positive identification. Bed in low position. Call bp light in reach. Side rails up X2. Seizure precautions initiated. 11:58 Patient has correct armband on for positive identification. Placed in gown. Bed in low mh5 position. Side rails up X2. Seizure precautions initiated. Warm blanket given. compliance monitor on. Pulse ox on. NIBP on. 11:58 EKG done, by ED staff, reviewed by Kaiser Marie MD. [facility] 12:04 Kaiser Marie MD is Attending Physician. rn 12:21 Basic Metabolic Panel Sent. [facility] 12:21 CBC with Diff Sent. [facility] 12:21 Initial lab(s) drawn, by la, sent to lab. Inserted saline lock: 20 gauge in right mh5 antecubital area, using aseptic technique. Blood collected. 13:10 XRAY Ankle LEFT 3 view In Process Unspecified. EDMS 14:33 No provider procedures requiring assistance completed. IV discontinued, intact, bp bleeding controlled, No redness/swelling at site. Pressure dressing applied. Administered Medications: 12:20 Drug: NS 0.9% 1000 ml Route: IV; Rate: 1000 ml; Site: right antecubital; bp 14:32 Follow up: IV Status: Completed infusion; IV Intake: 1000ml bp 12:44 Drug: Phenytoin 1 grams Route: IVPB; Site: right antecubital; bp 14:32 Follow up: IV Status: Completed infusion; IV Intake: 100ml bp Intake: 14:32 IV: 100ml; Total: 100ml. bp 14:32 IV: 1000ml; Total: 1100ml. bp Outcome: 14:23 Discharge ordered by . rn 14:33 Discharged to home ambulatory, with family. bp 14:33 Condition: stable 14:33 Discharge instructions given to patient, family, Instructed on discharge instructions, follow up and referral plans. Demonstrated understanding of instructions, follow-up care. 14:47 Patient left the ED. bp Signatures: Dispatcher [employer] EDMarita Samuels RN RN Kaiser Marie MD MD rn Martinez, Maria [facility] James Cantu RN RN bp
--- NOTE | 2020-06-11 14:24 | EDPHYS ---
Physician Documentation [facility] Name: Walt Velazquez Age: 49 yrs Sex: Male : 1970 Arrival Date: 06/11/2020 Time: 11:42 Bed 17 Private MD: ED Physician Kaiser Marie HPI: 06/11 13:48 This 49 yrs old Male presents to ER via EMS with complaints of Probable rn Seizure. 13:48 The patient presents after having a possible seizure episode. Seizure onset: just prior rn to arrival. Current symptoms: Currently, the patient is not experiencing any symptoms. The patient has experienced similar episodes in the past. The patient has not recently seen a physician. Reports thinks had a seizure, has outside, has hx of seizures, does not take his seizure medication, reports left ankle hurting, reports frequent seizures, tries to stay home and low so doesn't get hurt. Denies fever/vomiting/diarrhea/chest pain/sob/abd pain. Reports feels better now, feels like had a seizure. . Historical: - Allergies: 11:48 Trazodone; bp - PMHx: 11:48 Alcoholism; Anxiety; Bipolar disorder; Depression; DT; pancreatic cancer; Parkinsons; bp Seizures; - Immunization history:: Adult Immunizations unknown. - Social history:: Smoking status: Patient reports the use of cigarette tobacco products, unknown amount. - Family history:: not pertinent. - Hospitalizations: : No recent hospitalization is reported. ROS: 13:48 Constitutional: Negative for fever, chills, and weight loss, Eyes: Negative for injury, rn pain, redness, and discharge, Neck: Negative for injury, pain, and swelling, Cardiovascular: Negative for chest pain, palpitations, and edema, Respiratory: Negative for shortness of breath, cough, wheezing, and pleuritic chest pain, Abdomen/GI: Negative for abdominal pain, nausea, vomiting, diarrhea, and constipation, Back: Negative for injury and pain, MS/Extremity: Negative for injury and deformity, Skin: Negative for injury, rash, and discoloration, Neuro: Negative for headache, weakness, numbness, tingling Exam: 13:48 Constitutional: This is a well developed, well nourished patient who is awake, alert, rn and in no acute distress. Head/Face: Normocephalic, atraumatic. ENT: dry MM Neck: Supple, full range of motion without nuchal rigidity, or vertebral point tenderness. No Meningismus. Cardiovascular: Regular rate and rhythm . No pulse deficits. Respiratory: No increased work of breathing, no retractions or nasal flaring. Abdomen/GI: soft, non-tender Skin: Warm, dry MS/ Extremity: Pulses equal, no cyanosis. Neuro: Awake and alert, GCS 15, oriented to person, place, time, and situation. Cranial nerves II-XII grossly intact. Motor strength 5/5 in all extremities. Sensory grossly intact. Vital Signs: 11:45 BP 110 / 72; Pulse 75; Resp 16; Temp 98.2; Pulse Ox 98% ; bp 12:29 BP 97 / 69; Pulse 67; Resp 12; Pulse Ox 100% ; bp 13:30 BP 100 / 46; Pulse 66; Resp 13; Pulse Ox 100% ; bp 14:32 BP 100 / 68; Pulse 72; Resp 16; Temp 98; Pulse Ox 100% ; bp MDM: 12:04 Patient medically screened. rn 14:20 Differential diagnosis: seizure, dehydration. Data reviewed: vital signs, nurses notes, turnaround planner test result(s), EKG, radiologic studies, plain films, and as a result, I will discharge patient. Counseling: I had a detailed discussion with the patient and/or guardian regarding: the historical points, exam findings, and any diagnostic results supporting the discharge/admit diagnosis, lab results, radiology results, the need for outpatient follow up, to return to the emergency department if symptoms worsen or persist or if there are any questions or concerns that arise at home. Response to treatment: the patient's symptoms have resolved after treatment, the patient's condition has returned to base line, the patient is now symptom free, and as a result, I will discharge patient. Special discussion: I discussed with the patient/guardian in detail that at this point there is no indication for admission to the hospital. It is understood, however, that if the symptoms persist or worsen the patient needs to return immediately for re-evaluation. 06/11 12:11 Order name: CBC with Diff; Complete Time: 13:17 rn 06/11 12:11 Order name: Basic Metabolic Panel; Complete Time: 13:17 rn 06/11 12:11 Order name: XRAY Ankle LEFT 3 view; Complete Time: 13:17 rn 06/11 12:12 Order name: EKG; Complete Time: 12:13 bp 06/11 12:11 Order name: IV Start; Complete Time: 12: rn 06/11 12:12 Order name: EKG - Nurse/Tech; Complete Time: 12:12 bp Administered Medications: 12:20 Drug: NS 0.9% 1000 ml Route: IV; Rate: 1000 ml; Site: right antecubital; bp 14:32 Follow up: IV Status: Completed infusion; IV Intake: 1000ml bp 12:44 Drug: Phenytoin 1 grams Route: IVPB; Site: right antecubital; bp 14:32 Follow up: IV Status: Completed infusion; IV Intake: 100ml bp Disposition: 06/11/20 14:23 Discharged to Home. Impression: Epilepsy and recurrent seizures, Dehydration, Sprain of unspecified ligament of left ankle. - Condition is Stable. - Discharge Instructions: Ankle Sprain, Dehydration, Adult, Seizure, Adult. - Medication Reconciliation Form, Thank You Letter, Antibiotic Education, Prescription Opioid Use form. - Follow up: Private Physician; When: As needed; Reason: Recheck today's complaints, Re-evaluation by your physician. - Problem is an acute exacerbation. - Symptoms have improved. Signatures: Dispatcher [employer] EDMS Kaiser Marie MD MD rn Peltier, Brian, RN RN bp Corrections: (The following items were deleted from the chart) 14:47 14:23 06/11/2020 14:23 Discharged to Home. Impression: Epilepsy and recurrent seizures; bp Dehydration; Sprain of unspecified ligament of left ankle. Condition is Stable. Forms are Medication Reconciliation Form, Thank You Letter, Antibiotic Education, Prescription Opioid Use. Follow up: Private Physician; When: As needed; Reason: Recheck today's complaints, Re-evaluation by your physician. Problem is an acute exacerbation. Symptoms have improved. rn
--- NOTE | 2020-06-12 12:42 | EKG ---
Test Date: 2020-06-11 Test Time: 11:50:39 Spray Mixer: RYAN MEASUREMENT RESULTS: Intervals: Rate: 65 CA: 158 QRSD: 66 QT: 410 QTc: 426 [place]: P: 54 CA: 158 QRS: 43 T: 40 INTERPRETIVE STATEMENTS: Normal sinus rhythm Low voltage QRS Junctional ST depression, probably normal Borderline ECG Compared to ECG 05/19/2018 21:08:55 Low QRS voltage now present ST (T wave) deviation now present Electronically Signed On 06-12-20 12:39:44 GUIDE DOG MOBILITY INSTRUCTOR by Asim Thompson
[2020-06-12 22:51] VITALS: O2SAT 100
[2020-06-12 22:54] VITALS: BP 100/68; TEMP 98
== END 2020-06-11 14:47 | disposition home or self-care (01) ==
LOC: ER 11:40
DX: E86.0 Dehydration (principal); S93.402A Sprain of unspecified ligament of left ankle, initial encounter; F10.20 Alcohol dependence, uncomplicated; G20 Parkinson's disease; Z85.07 Personal history of malignant neoplasm of pancreas; Z88.5 Allergy status to narcotic agent; Z72.0 Tobacco use
CPT/HCPCS: 36415; 80048; 85025; 93005; 96365; 96366; 99285; J1165; J7030

== ENCOUNTER 2020-12-30 12:19 | Emergency (ER) | payer SELFPAY ==
--- NOTE | 2020-12-30 13:24 | EDPHYS ---
Physician Documentation [facility] Name: Walt Velazquez Age: 50 yrs Sex: Male : 1970 Arrival Date: 12/30/2020 Time: 12:21 Bed 7 Private MD: ED Physician Chang Sinha Historical: - Allergies: 12/30 12:24 Trazodone; ca1 - PMHx: 12:24 Alcoholism; Anxiety; Bipolar disorder; Depression; DT; pancreatic cancer; Parkinsons; ca1 Seizures; - Immunization history:: Adult Immunizations not up to date. - Social history:: Smoking status: Patient reports the use of cigarette tobacco products. Vital Signs: 12:21 BP 150 / 92; Pulse 77; Resp 18 S; Temp 98.3(TE); Pulse Ox 99% on R/A; ca1 MDM: 13:04 Patient medically screened. tw4 13:21 ED course: Patient left the ER prior to evaluation . pm1 Administered Medications: No medications were administered Disposition: 16:16 Co-signature as Attending Physician, Chang Sinha MD I agree with the assessment and tw4 plan of care. Disposition Summary: 12/30/20 13:24 Eloped Disposition: before being seen by provider pm1 Problem: new pm1 Symptoms: are unchanged pm1 Reason: (see nurse's notes) pm1 Condition: Undetermined pm1 Diagnosis - Encounter for medication refill pm1 Followup: pm1 - With: Emergency Department - When: As needed - Reason: Worsening of condition Followup: pm1 - With: Private Physician - When: 2 - 3 days - Reason: Recheck today's complaints, Continuance of care, Re-evaluation by your physician Signatures: Piero Portillo, ENVIRONMENTAL OFFICER ENVIRONMENTAL OFFICER pm1 Chang Sinha MD MD tw4 Betty Muir, RN RN ca1
--- NOTE | 2020-12-30 13:24 | ER ---
Nurse's Notes [facility] Name: Walt Velazquez Age: 50 yrs Sex: Male : 1970 Arrival Date: 12/30/2020 Time: 12:21 Bed 7 Private MD: Diagnosis: Encounter for medication refill Presentation: 12/30 12:21 Coronavirus screen: Client denies travel out of the [place] in the last 14 days. At this ca1 time, the client does not indicate any symptoms associated with coronavirus-19. Ebola Screen: Patient negative for fever greater than or equal to 101.5 degrees Fahrenheit, and additional compatible Ebola Virus Disease symptoms Patient denies exposure to infectious person. Patient denies travel to an Ebola-affected area in the 21 days before illness onset. No symptoms or risks identified at this time. Initial Sepsis Screen: Does the patient meet any 2 criteria? No. Patient's initial sepsis screen is negative. Does the patient have a suspected source of infection? No. Patient's initial sepsis screen is negative. Risk Assessment: Do you want to hurt yourself or someone else? Patient reports no desire to harm self or others. 12:21 Method Of Arrival: Law Enforcement: [place] [employer] ca1 12:21 Acuity: LATASHA 3 ca1 12:23 Chief complaint: PD: [employer] sent him here for mental eval and he says he needs ca1 medication refill. He says he forgets everyday what happened the day before. We've been arresting him everyday. He is no longer in our custody. Onset of symptoms was December 30, 2020. Historical: - Allergies: 12:24 Trazodone; ca1 - PMHx: 12:24 Alcoholism; Anxiety; Bipolar disorder; Depression; DT; pancreatic cancer; Parkinsons; ca1 Seizures; - Immunization history:: Adult Immunizations not up to date. - Social history:: Smoking status: Patient reports the use of cigarette tobacco products. Assessment: 12:25 General: Appears in no apparent distress. comfortable, slender, unkempt, Behavior is tr6 calm, cooperative, appropriate for age, Smells of body odor. Pain: Denies pain. Neuro: Level of Consciousness is awake, alert, Oriented to person, place. Cardiovascular: No deficits noted. Respiratory: No deficits noted. GI: No deficits noted. : No deficits noted. EENT: EENT: No deficits noted. Derm: No deficits noted. Musculoskeletal: No deficits noted. Vital Signs: 12:21 BP 150 / 92; Pulse 77; Resp 18 S; Temp 98.3(TE); Pulse Ox 99% on R/A; ca1 ED Course: 12:21 Patient arrived in ED. aa5 12:21 Arm band placed on right wrist. ca1 12:23 Triage completed. ca1 12:24 Maria L Hernandez, RN is Primary Nurse. tr6 12:25 Patient has correct armband on for positive identification. Bed in low position. Call ca1 light in reach. Side rails up X 1. Pulse ox on. NIBP on. 13:04 Chang Sinha MD is Attending Physician. tw4 13:10 Piero Portillo NP is PHCP. pm1 13:10 Chang Sinha MD is Attending Physician. pm1 Administered Medications: No medications were administered Outcome: 13:46 Patient left the ED. pm1 Signatures: Nellie Perkins, ROBERTO RN aa5 Piero Portillo NP MEDIA PLANNER pm1 Chang Sinha MD MD tw4 Betty Muir RN RN ca1 Maria L Hernandez RN RN tr6
[2020-12-30 13:58] VITALS: BP 150/92; TEMP 98.3; O2SAT 99
== END 2020-12-30 13:46 | disposition left against medical advice (07) ==
LOC: ER 12:19
DX: Z53.21 Procedure and treatment not carried out due to patient leaving prior to being seen by health care provider (principal)
CPT/HCPCS: 99282

== ENCOUNTER 2021-01-04 00:06 | Emergency (ER) | payer SELFPAY ==
--- NOTE | 2021-01-04 01:29 | ER ---
Nurse's Notes [facility] Name: Walt Velazquez Age: 50 yrs Sex: Male : 1970 Arrival Date: 01/04/2021 Time: 01:07 Bed Waiting Private MD: Diagnosis: Presentation: 01/04 01:10 Chief complaint: EMS states: they were toned out for report of pt on the side of the bb road intoxicated has a small lac to forehead. Coronavirus screen: At this time, the client does not indicate any symptoms associated with coronavirus-19. Ebola Screen: No symptoms or risks identified at this time. 01:10 Method Of Arrival: EMS: [facility] bb 01:15 Initial Sepsis Screen: Does the patient meet any 2 criteria? No. Patient's initial bb sepsis screen is negative. Does the patient have a suspected source of infection? No. Patient's initial sepsis screen is negative. Risk Assessment: Do you want to hurt yourself or someone else? Patient reports no desire to harm self or others. Onset of symptoms is unknown. 01:15 Acuity: LATASHA 4 bb Triage Assessment: 01:20 General: Appears in no apparent distress. Behavior is agitated, combative. Pain: Denies bb pain. Neuro: Level of Consciousness is awake, Oriented to person, place. Cardiovascular: Capillary refill < 3 seconds Patient's skin is warm and dry. Respiratory: Respiratory effort is even, unlabored, Respiratory pattern is regular. GI: Abdomen is non-distended. Derm: Skin is dry, Skin is normal, Skin temperature is warm Wound noted forehead. Musculoskeletal: Circulation, motion, and sensation intact. Injury Description: Laceration sustained to forehead is superficial, less than 1 cm, not bleeding. Historical: - Allergies: 01:20 Trazodone; bb - Home Meds: :20 Unable to obtain [Active]; bb - PMHx: :20 Alcoholism; Anxiety; Bipolar disorder; Depression; DT; pancreatic cancer; Parkinsons; bb Seizures; - Immunization history:: Adult Immunizations unknown. - Social history:: Smoking status: unknown. Assessment: 01:20 Reassessment: pt is belligerent, cussing, uncooperative, [place] PD notified. bb :25 Reassessment: [place] [employer] in lobby pt hand-cuffed, wound cleaned with normal saline, bb antibiotic ointment applied and covered with a 2x2 dressing. Pt accompanied by PD to exit. Vital Signs: 01:15 BP 132 / 91; Pulse 91; Resp 20 S; Pulse Ox 97% on R/A; bb ED Course: 01:07 Patient arrived in ED. bb 01:20 Triage completed. bb 01:20 Arm band placed on Patient placed in waiting room, Patient notified of wait time. bb Administered Medications: No medications were administered Outcome: : Patient left the ED. bb Signatures: Candy Panda RN RN bb Corrections: (The following items were deleted from the chart) 01:21 01:20 Home Meds: Dilantin Oral 100 mg three times a day; sandra flores :21 01:20 Home Meds: Ritalin Oral; sandra flores
[2021-01-04 01:34] VITALS: BP 132/91; O2SAT 97
== END 2021-01-04 01:28 | disposition left against medical advice (07) ==
LOC: ER 00:06
DX: F10.229 Alcohol dependence with intoxication, unspecified (principal); S01.81XA Laceration without foreign body of other part of head, initial encounter; X58.XXXA Exposure to other specified factors, initial encounter; F41.9 Anxiety disorder, unspecified; F31.9 Bipolar disorder, unspecified; G20 Parkinson's disease; C25.9 Malignant neoplasm of pancreas, unspecified
CPT/HCPCS: 99284

== ENCOUNTER 2021-02-13 20:29 | Emergency (ER) | payer SELFPAY ==
--- NOTE | 2021-02-13 23:55 | ER ---
Nurse's Notes [facility] Name: Walt Velazquez Age: 50 yrs Sex: Male : 1970 Arrival Date: 02/13/2021 Time: 20:34 Bed Waiting Private MD: Diagnosis: Presentation: 02/13 21:23 Chief complaint: Patient states: Pt stated stated, " I would like a refill of my kg medications and my left foot has been hurting me since they chopped my toe off." Pt denies Suicidal or homicidal ideation. Pt stated, " this leg is killing me I want it chopped off" referring to left leg. Coronavirus screen: Client denies travel out of the [place] in the last 14 days. At this time, unable to obtain information related to travel outside the [place] At this time, the client does not indicate any symptoms associated with coronavirus-19. Ebola Screen: Patient negative for fever greater than or equal to 101.5 degrees Fahrenheit, and additional compatible Ebola Virus Disease symptoms Patient denies exposure to infectious person. Patient denies travel to an Ebola-affected area in the 21 days before illness onset. Initial Sepsis Screen: Does the patient meet any 2 criteria? No. Patient's initial sepsis screen is negative. Does the patient have a suspected source of infection? No. Patient's initial sepsis screen is negative. Risk Assessment: Do you want to hurt yourself or someone else? Patient reports no desire to harm self or others. Onset of symptoms is unknown. 21:23 Method Of Arrival: Ambulatory kg 21:23 Acuity: LATASHA 4 kg Triage Assessment: 21:27 General: Appears in no apparent distress. Behavior is calm, cooperative, appropriate kg for age, quiet. Pain: Complains of pain in left foot Pain radiates to left leg. Historical: - Allergies: 21:27 Trazodone; kg - PMHx: 21:27 Alcoholism; Anxiety; Bipolar disorder; Depression; DT; pancreatic cancer; Parkinsons; kg Seizures; TBI; - PSHx: 21:27 Left 5 th amputation; Heart ablation; Right shoulder sx; kg - Immunization history:: Adult Immunizations not up to date, Client reports having NOT received the Covid vaccine. - Social history:: Smoking status: Patient reports the use of cigarette tobacco products, smokes one pack cigarettes per day. Patient uses alcohol, on a daily basis. Screenin:30 Abuse screen: Denies threats or abuse. Denies injuries from another. Nutritional kg screening: No deficits noted. Tuberculosis screening: No symptoms or risk factors identified. Fall Risk None identified. Psych: 21:31 [place] Suicide Severity Screening: Pt denies any SI. Subjective: Patient's mood is kg Happy, playful Delusions are denied, Hallucinations are denied Having thoughts of Denies SI or HI. Objective: Patient is cooperative, Speech is normal, Affect is appropriate. Interventions: Currently in police custody with cuffs on. Patient uses Last use was 3 hours ago. Patient uses tobacco 1 pack. Commitment:. Vital Signs: 21:23 BP 136 / 88; Pulse 103; Resp 18 S; Temp 98.1(O); Pulse Ox 97% on R/A; Weight 63.5 kg; kg Height 5 ft. 6 in. (167.64 cm) (R); Pain 5/10; 21:23 Body Mass Index 22.60 (63.50 kg, 167.64 cm) kg ED Course: 20:34 Patient arrived in ED. mr 21:27 Triage completed. kg 21:27 Arm band placed on right wrist. kg 21:30 Patient has correct armband on for positive identification. kg 21:31 No provider procedures requiring assistance completed. kg Administered Medications: No medications were administered Outcome: 23:54 Patient left the ED. kg Signatures: Karrie Smiley mr BurrisEthel, RN RN kg
[2021-02-14 00:12] VITALS: BP 136/88; TEMP 98.1; O2SAT 97
== END 2021-02-13 23:54 | disposition left against medical advice (07) ==
LOC: ER 20:29
DX: Z53.21 Procedure and treatment not carried out due to patient leaving prior to being seen by health care provider (principal)
CPT/HCPCS: 99282

== ENCOUNTER 2021-02-16 18:09 | Emergency (ER) | payer SELFPAY ==
[2021-02-16] MEDS ORDERED: LORAZEPAM 1 MG TABLET ONE (20:40)
--- NOTE | 2021-02-16 20:53 | RAD REPORT ---
EXAM DESCRIPTION: CT - Head Brain Wo Cont - 02/16/2021 8:29 pm CLINICAL HISTORY: HEADACHE Headache, drowsiness COMPARISON: Head Brain Wo Cont dated 05/22/2018; Head Brain Wo Cont dated 05/07/2018 TECHNIQUE: All CT scans are performed using dose optimization technique as appropriate and may inclu de automated exposure control or mA/KV adjustment according to patient size. FINDINGS: No intracranial hemorrhage, hydrocephalus or extra-axial fluid collection.Mild brain atrop hy is noted.No areas of brain edema or evidence of midline shift. Mild mucosal thickening affects the posterior right maxillary sinus. The paranasal sinuses and mastoi ds are otherwise clear. The calvarium is intact. Small frontal subcutaneous soft tissue lesion measur ing 6 mm is noted, enlarged from 3 mm in 2018. IMPRESSION: No acute intracranial abnormality. Mild enlargement of small subcutaneous soft tissue mass along the forehead region midline. This is a nonspecific finding. Recommend correlation with direct clinical evaluation.
[2021-02-16] MEDS ORDERED: ASPIRIN 81 MG CHEWABLE TABLET ONE (21:31)
[2021-02-16 21:32] LABS: Absolute Lymphocytes (CBC) 0.5 K/uL (0.7-4.9); Basophils % 0.5 % (0-1.3); Hematocrit 45.6 % (39.6-49.0); MPV 6.9 fL (7.6-11.3); RBC Red Blood Cell Count 4.82 M/uL (4.33-5.43)
[2021-02-16] MEDS ORDERED: FOLIC ACID 5 MG/ML VIAL ONE (22:18)
[2021-02-16] MEDS ORDERED: NA CHLORIDE 0.9% 1,000 ML ONE (22:18)
[2021-02-16] MEDS ORDERED: MULTIVITAMINS 10 ML VIAL (INJ) IV ONE ×2 (22:18→22:24)
[2021-02-16] MEDS ORDERED: THIAMINE 200 MG/2 ML INJ ONE (22:18)
[2021-02-16 22:34] LABS: Protime INR 0.97
[2021-02-16 23:17] LABS: ALT/SGPT 25 U/L (12-78); AST/SGOT 39 U/L (15-37); Albumin 3.9 g/dL (3.4-5.0); BUN Blood Urea Nitrogen 7 mg/dL (7-18); Bicarbonate 25 mmol/L (21-32); Bilirubin Direct 0.3 mg/dL (0-0.2); Bilirubin Total 0.8 mg/dL (0.2-1.0); Glucose Level 153 mg/dL (74-106); Potassium 3.6 mmol/L (3.5-5.1); Protein, Total 8.4 g/dL (6.4-8.2); Sodium Level 136 mmol/L (136-145); Troponin (Emerg Dept Use Only) < 0.02 ng/mL (0.0-0.045)
[2021-02-16 23:31] LABS: Alkaline Phosphatase 108 U/L (45-117)
[2021-02-16] MEDS ORDERED: LORazepam 2 MG/ML VIAL ONE (23:47)
--- NOTE | 2021-02-17 00:39 | ER ---
Nurse's Notes [facility] Name: Walt Velazquez Age: 50 yrs Sex: Male : 1970 Arrival Date: 02/16/2021 Time: 18:12 Bed DX1 Private MD: Diagnosis: Chest pain, unspecified;Alcohol abuse Presentation: 02/16 18:47 Chief complaint: EMS states: was found wandering around [employer], PD said he needed iw to go to ER because he wasn't acting like his normal self. Onset of symptoms was February 16, 2021. 18:47 Method Of Arrival: EMS: [facility] iw 18:47 Acuity: LATASHA 3 iw 19:28 Coronavirus screen: At this time, the client does not indicate any symptoms associated iw with coronavirus-19. Ebola Screen: Patient negative for fever greater than or equal to 101.5 degrees Fahrenheit, and additional compatible Ebola Virus Disease symptoms Patient denies exposure to infectious person. Patient denies travel to an Ebola-affected area in the 21 days before illness onset. No symptoms or risks identified at this time. Initial Sepsis Screen: Does the patient meet any 2 criteria? No. Patient's initial sepsis screen is negative. Does the patient have a suspected source of infection? No. Patient's initial sepsis screen is negative. Risk Assessment: Do you want to hurt yourself or someone else? Patient reports no desire to harm self or others. 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 Denies injuries from another. Nutritional aj1 screening: No deficits noted. Tuberculosis screening: No symptoms or risk factors identified. Fall Risk No fall in past 12 months (0 pts). Secondary diagnosis (15 points) impaired mobility, No IV (0 pts). Ambulatory Aid- None/Bed Rest/Nurse Assist (0 pts). Gait- Impaired (20 pts.). Mental Status- Overestimates/Forgets Limitations (15 pts.). Total Cadena Fall Scale indicates High Risk Score (45 or more points). Assessment: 02/16 19:42 General: Appears unkempt. Pain: Complains of pain in chest. GI: Reports vomiting. iw 20:45 General: Appears in no apparent distress. comfortable, Behavior is calm, cooperative, aj1 appropriate for age. General: Patient reports headache and chest pain but states that his headache is worse than the chest pain. Pain: Complains of pain in forehead Pain does not radiate. Pain currently is 4 out of 10 on a pain scale. Quality of pain is described as aching. Neuro: Level of Consciousness is awake, alert, obeys commands, Oriented to person, place, time, situation, Gait is unsteady. Cardiovascular: Reports chest pain, nausea, Heart tones S1 S2 present Patient's skin is warm and dry. Rhythm is regular. Respiratory: Airway is patent Respiratory effort is even, unlabored, Respiratory pattern is regular, symmetrical. GI: Abdomen is non-distended, Bowel sounds present X 4 quads. Abd is soft and non tender X 4 quads. Reports nausea. : No signs and/or symptoms were reported regarding the genitourinary system. EENT: No signs and/or symptoms were reported regarding the EENT system. Derm: No signs and/or symptoms reported regarding the dermatologic system. Skin is pink, warm \T\ dry. normal. Musculoskeletal: No signs and/or symptoms reported regarding the musculoskeletal system. 21:10 Reassessment: Patient states that he still has a headache and would like some aspirin aj1 for his headache. Notified Elbert Portillo NP. Order received. 22:10 Reassessment: Patient appears in no apparent distress at this time. No changes from aj1 previously documented assessment. Patient and/or family updated on plan of care and expected duration. Pain level reassessed. Patient is alert, oriented x 3, equal unlabored respirations, skin warm/dry/pink. 23:30 Reassessment: Patient appears in no apparent distress at this time. No changes from aj1 previously documented assessment. Patient and/or family updated on plan of care and expected duration. Pain level reassessed. Patient is alert, oriented x 3, equal unlabored respirations, skin warm/dry/pink. 02/17 00:30 Reassessment: Patient appears in no apparent distress at this time. No changes from aj1 previously documented assessment. Patient and/or family updated on plan of care and expected duration. Pain level reassessed. 01:26 Reassessment: Patient states that he recently moved and he is not sure how to get home aj1 where he lives. States that he also recently lost his cell phone so he doesn't know anyone's number who he can call to get him. Notified charge nurse of patient situation. Patient was given discharge instruction and instructed to wait for further instruction on how he is going to get home. Vital Signs: 02/16 19:27 BP 159 / 100; Pulse 122; Resp 20 S; Temp 99.0; Pulse Ox 100% on R/A; iw 22:24 BP 171 / 93; Pulse 100; Resp 18; Pulse Ox 99% on R/A; aj1 23:30 BP 169 / 95; Pulse 102; Resp 18; Pulse Ox 99% on R/A; aj1 02/17 01:25 BP 165 / 92; Pulse 96; Resp 20; Pulse Ox 97% on R/A; aj1 ED Course: 02/16 18:12 Patient arrived in ED. iw 18:48 Triage completed. iw 19:28 Arm band placed on. iw 20:29 CT Head Brain wo Cont In Process Unspecified. EDMS 20:39 Piero Portillo NP is PHCP. pm1 20:39 Elton Lopez MD is Attending Physician. pm1 21:29 Initial lab(s) drawn, by me, sent to lab. Inserted saline lock: 20 gauge in left tt3 forearm, using aseptic technique. Blood collected. 22:06 Irma Elaine, RN is Primary Nurse. aj02/17 01:25 No provider procedures requiring assistance completed. IV discontinued, intact, aj1 bleeding controlled, No redness/swelling at site. Pressure dressing applied. Administered Medications: 02/16 20:26 Drug: Ativan (LORazepam) 2 mg Route: PO; bb 02/17 01:29 Follow up: Response: No adverse reaction aj02/16 21:12 Drug: Aspirin 325 mg Route: PO; aj02/17 01:29 Follow up: Response: No adverse reaction 02/16 22:18 Drug: Banana Bag - (NS 0.9% 1000 ml, foLIC Acid 1 mg, Thiamine 100 mg, Multivitamin 1 aj1 amp) Route: IV; Rate: calculated rate; Site: left antecubital; 02/17 01:29 Follow up: IV Status: Completed infusion; IV Intake: 1000ml aj 02/16 23:29 Drug: Ativan (LORazepam) 1 mg Route: IVP; Site: left antecubital; bb 02/17 01:29 Follow up: Response: No adverse reaction aj1 Intake: :29 IV: 1000ml; Total: 1000ml. aj Outcome: 00:38 Discharge ordered by . pm1 01:28 Discharged to home aj 01:28 Condition: good 01:28 Discharge instructions given to patient, Instructed on discharge instructions, follow up and referral plans. Demonstrated understanding of instructions, follow-up care. 02:36 Patient left the ED. bb Signatures: Dispatcher [employer] EDIrma Oliva RN RN aj1 Candy Panda RN RN bb Marita Hernandez RN RN iw Marinas, Patrick, NP MATERIAL CONTROL CLERK pm1 Farshad Cristobal tt3
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
[2021-02-17 02:42] VITALS: TEMP 99
[2021-02-17 02:46] VITALS: BP 165/92; O2SAT 97
== END 2021-02-17 02:36 | disposition home or self-care (01) ==
LOC: ER 18:09
DX: F10.20 Alcohol dependence, uncomplicated (principal); G20 Parkinson's disease; Z88.5 Allergy status to narcotic agent
CPT/HCPCS: 36415; 70450; 80048; 80076; 80320; 80329; 84484; 85025; 85610; 85730; 93005; 96365; 96366; 96375; 99284; J3411; J7030

== ENCOUNTER 2021-02-17 21:55 | Emergency (ER) | payer SELFPAY ==
[2021-02-18] MEDS ORDERED: ACETAMINOPHEN 500 MG TAB ONE (02:44)
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
[2021-02-18 04:32] VITALS: BP 134/92; TEMP 97.6; O2SAT 100
--- NOTE | 2021-02-18 08:58 | RAD REPORT ---
EXAM DESCRIPTION: Shoulder Right 2 View - 02/18/2021 3:58 am CLINICAL HISTORY: trauma COMPARISON: Shoulder Right 2 View dated 12/27/2016 TECHNIQUE: Internal and external rotation views of the right shoulder were obtained. FINDINGS: Positioning is not optimal. No fracture or dislocation is identifiable. Inferiorly directe d small spur is present from the clavicle at the AC joint. Patient has a prominent downward tilting o f the lateral aspect of the acromion similar to the comparison. This can be a cause of shoulder impin gement. The acromial humeral joint space is narrowed similar to the prior study. No abnormal soft tis monica calcification. No AC joint separation. No pathologic process. Ribs and upper lung parenchyma are unremarkable. Sternoclavicular joint shows no acute finding. IMPRESSION: Shoulder joint degenerative changes are present as detailed. No fracture or dislocation seen. No significant change from comparison.
--- NOTE | 2021-02-18 08:59 | RAD REPORT ---
EXAM DESCRIPTION: RAD - Tib Fib Left - 02/18/2021 3:58 am COMPARISON: None. FINDINGS: No fracture is identified. There is no dislocation or periosteal reaction noted. No acute or suspicious bony finding. No foreign body or other soft tissue abnormality. Arterial tree calcifications are present prominent for age. IMPRESSION: Negative left tibia & fibula examination for acute finding. Advanced for age calcifications in the arterial tree.
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
== END 2021-02-18 04:26 | disposition home or self-care (01) ==
LOC: ER 21:55
DX: S00.81XA Abrasion of other part of head, initial encounter (principal); S40.011A Contusion of right shoulder, initial encounter; S80.12XA Contusion of left lower leg, initial encounter; Y09 Assault by unspecified means; Y93.89 Activity, other specified; Y92.89 Other specified places as the place of occurrence of the external cause; F10.20 Alcohol dependence, uncomplicated; G20 Parkinson's disease; F17.210 Nicotine dependence, cigarettes, uncomplicated; Z88.5 Allergy status to narcotic agent
CPT/HCPCS: 70450; 99283

== ENCOUNTER 2021-04-15 12:55 | Emergency (ER) | payer SELFPAY ==
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
--- NOTE | 2021-04-15 13:39 | ER ---
Nurse's Notes [facility] Name: Walt Velazquez Age: 50 yrs Sex: Male : 1970 Arrival Date: 04/15/2021 Time: 12:56 Bed 3 Private MD: Diagnosis: Alcohol dependence with withdrawal, unspecified Presentation: 04/15 12:56 Chief complaint: EMS states: HEADACHE AT CUSTODIAL SINCE 1100. Coronavirus screen: At this bp time, the client does not indicate any symptoms associated with coronavirus-19. Ebola Screen: No symptoms or risks identified at this time. Initial Sepsis Screen: Does the patient meet any 2 criteria? No. Patient's initial sepsis screen is negative. Does the patient have a suspected source of infection? No. Patient's initial sepsis screen is negative. Risk Assessment: Do you want to hurt yourself or someone else? Patient reports no desire to harm self or others. Onset of symptoms was April 15, 2021 at 11:00. Care prior to arrival: IV initiated. 20 GA, in the left antecubital area. 12:56 Method Of Arrival: EMS: [facility] bp 12:56 Acuity: LATASHA 3 bp Triage Assessment: 12:56 General: Appears in no apparent distress. uncomfortable, unkempt, RELEASED FROM CUSTODIAL bp FOR SCALES AND LIKELY ETOH WITHDRAWL. Historical: - Allergies: 12:57 Trazodone; jl7 - Home Meds: 12:57 Dilantin Oral 100 mg three times a day [Active]; Ritalin Oral [Active]; jl7 - PMHx: 12:57 Alcoholism; Anxiety; Bipolar disorder; Depression; DT; pancreatic cancer; Parkinsons; jl7 Seizures; TBI; - Immunization history:: Adult Immunizations not up to date, Client reports having NOT received the Covid vaccine. Client reports having NOT received the Covid vaccine. - Social history:: Smoking status: Patient reports the use of cigarette tobacco products, unknown amount Patient uses alcohol, on a daily basis. patient/guardian reports chronic longstanding heavy alcohol consumption. street drugs, Smoking status: Patient reports the use of cigarette tobacco products, smokes one-half pack cigarettes per day, Patient uses alcohol, on a daily basis. 18-24 pack of beer daily. street drugs, cocaine, marijuana. Screenin:57 Abuse screen: Denies threats or abuse. Denies injuries from another. Nutritional jl7 screening: No deficits noted. Tuberculosis screening: No symptoms or risk factors identified. Fall Risk IV access (20 points). Total Cadena Fall Scale indicates No Risk (0-24 pts). Assessment: 13:04 General: SEE TRIAGE NOTE. bp 13:13 General: Appears in no apparent distress. uncomfortable, Behavior is calm, cooperative. jl7 Pain: Complains of pain in mid-sternal area Pain does not radiate. Pain currently is 7 out of 10 on a pain scale. Quality of pain is described as squeezing, Pain began 12 hrs ago Is continuous. Pain: Complains of pain in right shoulder Pain does not radiate. Pain currently is 7 out of 10 on a pain scale. Pain began years ago. Neuro: Level of Consciousness is awake, alert, obeys commands, Oriented to person, place, time, situation, Pt appears to have tremors with staff in the treatment room, cardiac rhythm is sinus on the monitor with artifact, tremors appear to stop when pt is in the room by himself, cardiac rhythm remains sinus on the monitor with no artificact noted.. Cardiovascular: Patient's skin is warm and dry. Rhythm is sinus rhythm. Respiratory: Airway is patent Respiratory effort is even, unlabored, Respiratory pattern is regular, symmetrical. Derm: Skin is pink, warm \T\ dry. Vital Signs: 12:56 BP 163 / 85; Pulse 88; Resp 19; Temp 98.4; Pulse Ox 96% ; bp 12:59 Weight 63.5 kg; Pain 7/10; jl7 13:13 BP 163 / 80; Pulse 75; Resp 15; Pulse Ox 100% ; jl7 ED Course: 12:56 Patient arrived in ED. bp 12:56 Esme Wilkes MD is Attending Physician. sp3 12:57 Eric Parisi RN is Primary Nurse. jl7 12:57 Patient has correct armband on for positive identification. Placed in gown. Bed in low jl7 position. Call light in reach. Side rails up X 1. engine monitor on. Pulse ox on. NIBP on. 12:58 Triage completed. bp 13:46 Arm band placed on right wrist. jl7 13:46 No provider procedures requiring assistance completed. IV discontinued, intact, jl7 bleeding controlled, No redness/swelling at site. Pressure dressing applied. Administered Medications: No medications were administered Outcome: 13:38 Discharge ordered by . sp3 13:46 Discharged to home ambulatory. jl7 13:46 Condition: stable 13:46 Discharge instructions given to patient, Instructed on discharge instructions, follow up and referral plans. Demonstrated understanding of instructions, follow-up care. 13:46 Patient left the ED. jl7 Signatures: Eric Parisi RN RN jl7 James Cantu RN RN Esme Wilkes MD MD sp3
[2021-04-15 13:53] VITALS: TEMP 98.4
[2021-04-15 13:55] VITALS: BP 163/80; O2SAT 100
--- NOTE | 2021-04-16 12:16 | EKG ---
Test Date: 2021-04-15 Test Time: 13:12:21 Awake Overnight Monitor: YVONNE MEASUREMENT RESULTS: Intervals: Rate: 90 MD: 146 QRSD: 72 QT: 344 QTc: 420 Center: P: 48 MD: 146 QRS: 25 T: 23 INTERPRETIVE STATEMENTS: Normal sinus rhythm Normal ECG Compared to ECG 02/16/2021 19:38:01 Sinus tachycardia no longer present Electronically Signed On 04-16-21 12:13:01 CDT by Asim Thompson
== END 2021-04-15 13:46 | disposition home or self-care (01) ==
LOC: ER 12:55
DX: F10.239 Alcohol dependence with withdrawal, unspecified (principal); C25.9 Malignant neoplasm of pancreas, unspecified; F14.90 Cocaine use, unspecified, uncomplicated; F12.90 Cannabis use, unspecified, uncomplicated; F17.210 Nicotine dependence, cigarettes, uncomplicated
CPT/HCPCS: 93005; 99284

== ENCOUNTER 2021-04-20 13:00 | Emergency (ER) | payer SELFPAY ==
[2021-04-20 13:28] LABS: Absolute Lymphocytes (CBC) 0.9 K/uL (0.7-4.9); Basophils % 0.9 % (0-1.3); Hematocrit 41.5 % (39.6-49.0); Lymphocytes % 21.1 % (15.3-44.8); MPV 7.1 fL (7.6-11.3); RBC Red Blood Cell Count 4.36 M/uL (4.33-5.43)
[2021-04-20 13:35] LABS: Protime INR 0.94
[2021-04-20 13:57] LABS: Urine Blood Negative (Negative); Urine Glucose Trace (Negative); Urine Protein 1+ (Negative); Urine Specific Gravity 1.025 (1.005-1.030)
[2021-04-20 13:59] LABS: ALT/SGPT 68 U/L (12-78); AST/SGOT 103 U/L (15-37); Albumin 3.7 g/dL (3.4-5.0); Alkaline Phosphatase 112 U/L (45-117); BUN Blood Urea Nitrogen 9 mg/dL (7-18); Bicarbonate 26 mmol/L (21-32); Bilirubin Direct 0.2 mg/dL (0-0.2); Bilirubin Total 0.6 mg/dL (0.2-1.0); Glucose Level 140 mg/dL (74-106); Potassium 3.8 mmol/L (3.5-5.1); Protein, Total 7.3 g/dL (6.4-8.2); Sodium Level 139 mmol/L (136-145)
[2021-04-20 14:13] LABS: Barbiturates NEGATIVE (NEGATIVE); Benzodiazepines NEGATIVE (NEGATIVE); Cocaine NEGATIVE (NEGATIVE); METHAMPHETAM NEGATIVE (NEGATIVE); Methadone NEGATIVE (NEGATIVE); Opiates NEGATIVE (NEGATIVE); Phencyclidine NEGATIVE (NEGATIVE); THC Cannibis NEGATIVE (NEGATIVE)
[2021-04-20] MEDS ORDERED: DIAZEPAM 10 MG/2 ML INJ SYRINGE ONE ×2 (14:15→15:22)
[2021-04-20] MEDS ORDERED: FOLIC ACID 1 MG, MULTIVITAMINS INJ 10 ML, THIAMINE HCL 100 MG in NA CHLORIDE 0.9% 1,000 ML IV ONE (15:00)
--- NOTE | 2021-04-20 15:14 | ER ---
Nurse's Notes [facility] Name: Walt Velazquez Age: 50 yrs Sex: Male : 1970 Arrival Date: 04/20/2021 Time: 13:03 Bed 14 Private MD: Diagnosis: Alcohol abuse Presentation: 04/20 13:05 Chief complaint: EMS states: Pt. arrives from correction due to going through alcohol jt3 withdrawal. Pt. has tremors, disoriented to time, and sweating. Denies pain. Pt. does not know the last time he drank alcohol. Airway patent on arrival. Coronavirus screen: Vaccine status: Client denies travel out of the [place] in the last 14 days. Vaccine status unknown. Ebola Screen: Patient negative for fever greater than or equal to 101.5 degrees Fahrenheit, and additional compatible Ebola Virus Disease symptoms Patient denies exposure to infectious person. Patient denies travel to an Ebola-affected area in the 21 days before illness onset. Initial Sepsis Screen: Does the patient meet any 2 criteria? No. Patient's initial sepsis screen is negative. Does the patient have a suspected source of infection? No. Patient's initial sepsis screen is negative. Risk Assessment: Do you want to hurt yourself or someone else? Patient reports no desire to harm self or others. Onset of symptoms was April 20, 2021. 13:05 Method Of Arrival: EMS: [facility] jt3 13:05 Acuity: LATASHA 3 jt3 Triage Assessment: 13:22 General: Appears uncomfortable, Behavior is cooperative, restless. Pain: Denies pain. jt3 Cardiovascular: Reports chest pain. Historical: - Allergies: 13:22 Trazodone; jt3 - Immunization history:: Adult Immunizations unknown. - Social history:: Smoking status: Patient reports the use of cigarette tobacco products, smokes one pack cigarettes per day. Patient uses alcohol, on a daily basis. Screenin:49 Abuse screen: Denies threats or abuse. Denies injuries from another. Nutritional jt3 screening: No deficits noted. Tuberculosis screening: No symptoms or risk factors identified. Fall Risk Fall in past 12 months (25 points). Assessment: 13:49 Neuro: Level of Consciousness is awake, alert, Oriented to person, place, Moves all jt3 extremities. Reports Pt. reports tremor and chest tightness. EKG being performed. Alert and airway patent. . 14:03 Reassessment: C-SSRS: Negative on the CSSRS. Pt. has no thoughts of hurting himself. jt3 See screening sheet in paper chart. . 14:58 Reassessment: Patient keeps asking to leave. AMELIA Marc notified of patient's request. jt3 Patient's IV was removed. . 15:04 Reassessment: PT states, "I want to go ahead and go. I want to see my family. Denies ss CP." Pt is A\\T\\O x3. AMELIA Petersen spoke with patient. Pt verbalizes understanding importance of staying in the hospital until care is complete, but still insist that he would like to leave. AMA form signed. Neuro: Level of Consciousness is awake, alert, obeys commands, Oriented to person, place, time, situation. Respiratory: Airway is patent Respiratory effort is even, unlabored, Respiratory pattern is regular, symmetrical. Derm: Skin is intact, is healthy with good turgor, Skin is dry, Skin is pink, warm \\T\\ dry. normal. 15:10 Reassessment: Pt. signed an AMA form provider by Monico the provider. . jt3 Psych: 13:59 [facility] Suicide Severity Screening: In the past month, have you wished you were jt3 or wished you could go to sleep and not wake up? Patient responds "No." "In the past month, have you actually had any thoughts of killing yourself?" Patient responds "no." "In your lifetime, have you ever done anything, started to do anything, or prepared to do anything to end your life?" Patient responds "no.". Subjective: Patient's mood is. Vital Signs: 13:05 BP 137 / 93; Pulse 103; Resp 24; Pulse Ox 97% on R/A; Weight 58.97 kg; Height 5 ft. 4 jt3 in. (162.56 cm); 13:24 Temp 99.2(O); jt3 13:05 Body Mass Index 22.31 (58.97 kg, 162.56 cm) jt3 ED Course: 13:03 Patient arrived in ED. eb 13:03 Monico Kumar PA is PHCP. [facility] 13:03 Finesse Grajeda MD is Attending Physician. [facility] 13:04 Lopez Pritchett, RN is Primary Nurse. jt3 13:14 Triage completed. jt3 13:22 Arm band placed on right wrist. jt3 13:49 Patient has correct armband on for positive identification. Bed in low position. Call jt3 light in reach. Side rails up X2. 13:49 No provider procedures requiring assistance completed. Inserted saline lock: 20 gauge jt3 in left antecubital area, using aseptic technique. 15:04 IV discontinued, intact, bleeding controlled, No redness/swelling at site. Pressure ss dressing applied. Administered Medications: 13:22 Drug: Valium (diazepam) 5 mg Route: IVP; Site: left antecubital; jt3 13:32 Not Given (Not available in pharmacy ): Ethanol 95 % 0.1 ml IV at calculated rate once ss 14:29 Drug: Valium (diazepam) 10 mg Route: IVP; Site: left antecubital; jt3 14:29 Drug: Tylenol 650 mg Route: PO; jt3 15:09 Not Given (Patient Refused): Banana Bag - (NS 0.9% 1000 ml, foLIC Acid 1 mg, Thiamine jt3 100 mg, Multivitamin 1 amp) IV at calculated rate once Outcome: 15:04 AMA AMA form signed ss 15:04 unknown 15:14 Patient left the ED. ss Signatures: Monico Kumar PA PA jmm Smirch, Shelby, RN RN Ivett Nix Jordan, RN RN jt3 Corrections: (The following items were deleted from the chart) 13:23 13:22 PMHx: Seizures; jt3 jt3 13:23 13:22 PMHx: Bipolar disorder; jt3 jt3 13:23 13:22 PMHx: pancreatic cancer; jt3 jt3 13:23 13:22 PMHx: Alcoholism; jt3 jt3 13:23 13:22 PMHx: Parkinsons; jt3 jt3 13:23 13:22 PMHx: DT; jt3 jt3 13:23 13:22 PMHx: Anxiety; jt3 jt3 13:23 13:22 PMHx: Depression; jt3 jt3 13:23 13:22 PMHx: TBI; jt3 jt3 13:23 13:22 PSHx: Left 5 th amputation; jt3 jt3 : PSHx: Heart ablation; jt3 jt3 PSHx: Right shoulder sx; jt3 jt3
[2021-04-20] MEDS ORDERED: ACETAMINOPHEN 325 MG TABLET ONE (15:21)
[2021-04-20 15:27] VITALS: BP 137/93; O2SAT 97
[2021-04-20 15:28] VITALS: TEMP 99.2
--- NOTE | 2021-04-22 23:07 | EDPHYS ---
Physician Documentation [facility] Name: Walt Velazquez Age: 50 yrs Sex: Male : 1970 Arrival Date: 04/20/2021 Time: 13:03 Bed 14 Private MD: ED Physician Finesse Grajeda HPI: 04/20 16:39 This 50 yrs old Male presents to ER via EMS with complaints of Alcohol jmm withdrawal. 16:39 Onset: The symptoms/episode began/occurred today. The patient has experienced similar jmm episodes in the past, several times. This is a this is a 50-year-old male with a history of alcoholism that was put in [facility]. EMS was notified due to signs of alcohol withdrawal. Patient has developed tremors. Patient denies chest pain, shortness of breath. Patient is alert and oriented to person, place.. Historical: - Allergies: 13:22 Trazodone; jt3 - Immunization history:: Adult Immunizations unknown. - Social history:: Smoking status: Patient reports the use of cigarette tobacco products, smokes one pack cigarettes per day. Patient uses alcohol, on a daily basis. ROS: 16:39 Constitutional: Negative for fever, chills, and weight loss, Cardiovascular: Negative jmm for chest pain, palpitations, and edema, Respiratory: Negative for shortness of breath, cough, wheezing, and pleuritic chest pain. 16:39 Neuro: Positive for tremor. 16:39 All other systems are negative. Exam: 16:39 Head/Face: atraumatic. Eyes: EOMI, no conjunctival erythema appreciated ENT: Moist jmm Mucus Membranes Neck: Trachea midline, Supple Chest/axilla: Normal chest wall appearance and motion. Cardiovascular: Regular rate and rhythm. No edema appreciated Respiratory: Normal respirations, no respiratory distress appreciated Abdomen/GI: Non distended, soft Back: Normal ROM Skin: General appearance color normal MS/ Extremity: Moves all extremities, no obvious deformities appreciated, no edema noted to the lower extremities 16:39 Constitutional: The patient appears alert, awake. 16:39 Neuro: Motor: Gait: Resting tremors noted. 16:39 Psych: Behavior/mood is pleasant, cooperative. Vital Signs: 13:05 BP 137 / 93; Pulse 103; Resp 24; Pulse Ox 97% on R/A; Weight 58.97 kg; Height 5 ft. 4 jt3 in. (162.56 cm); 13:24 Temp 99.2(O); jt3 13:05 Body Mass Index 22.31 (58.97 kg, 162.56 cm) jt3 MDM: 13:38 Patient medically screened. [facility] 16:42 Data reviewed: vital signs, nurses notes. Counseling: I had a detailed discussion with jose the patient and/or guardian regarding: the historical points, exam findings, and any diagnostic results supporting the discharge/admit diagnosis, lab results. Refusal of service: The patient/guardian displays adequate decision making capability and despite a detailed discussion of alternatives, benefits, risks, and consequences refuses: Admission to the hospital for further work-up and treatment. 04/20 13:03 Order name: Acetaminophen; Complete Time: 14:04 [facility] 04/20 13:03 Order name: Basic Metabolic Panel; Complete Time: 14:04 [facility] 04/20 13:03 Order name: CBC with Diff; Complete Time: 13:40 [facility] 04/20 13:03 Order name: ETOH Level; Complete Time: 14:04 [facility] 04/20 13:03 Order name: Hepatic Function; Complete Time: 14:04 [facility] 04/20 13:03 Order name: PT-INR; Complete Time: 13:40 [facility] 04/20 13:03 Order name: Ptt, Activated; Complete Time: 13:40 [facility] 04/20 13:03 Order name: Salicylate; Complete Time: 14:33 [facility] 04/20 13:03 Order name: Urine Drug Screen; Complete Time: 14:14 [facility] 04/20 13:57 Order name: Urine Dipstick-Ancillary; Complete Time: 14:04 [facility] 04/20 13:03 Order name: EKG; Complete Time: 13:04 [facility] 04/20 13:03 Order name: EKG - Nurse/Tech; Complete Time: 14:29 [facility] 04/20 13:03 Order name: IV Saline Lock; Complete Time: 13: [facility] 04/20 13:03 Order name: Labs collected and sent; Complete Time: 13: [facility] 04/20 13:03 Order name: Suicide Screening ([place]); Complete Time: 14: [facility] 04/20 13:03 Order name: Urine Dipstick-Ancillary (obtain specimen); Complete Time: 14:29 jm Administered Medications: 13:22 Drug: Valium (diazepam) 5 mg Route: IVP; Site: left antecubital; jt3 13:32 Not Given (Not available in pharmacy ): Ethanol 95 % 0.1 ml IV at calculated rate once ss 14:29 Drug: Valium (diazepam) 10 mg Route: IVP; Site: left antecubital; jt3 14:29 Drug: Tylenol 650 mg Route: PO; jt3 15:09 Not Given (Patient Refused): Banana Bag - (NS 0.9% 1000 ml, foLIC Acid 1 mg, Thiamine jt3 100 mg, Multivitamin 1 amp) IV at calculated rate once Disposition Summary: 04/20/21 15:14 Left Against Medical Advice Location: Home ss Problem: an ongoing problem ss Symptoms: are unchanged ss Reason: refusing care ss Condition: Undetermined ss Diagnosis - Alcohol abuse ss Addendum: 04/22/2021 23:05 Co-signature as Attending Physician, Finesse Grajeda MD. m a2 Signatures: Dispatcher [employer] Monico Chavez PA PA jmm Smirch, Shelby, RN RN ss Finesse Grajeda MD MD ma2 Lopez Pritchett RN RN jt3 Corrections: (The following items were deleted from the chart) 04/20 13:23 13:22 PMHx: Seizures; jt3 jt3 13:23 13:22 PMHx: Bipolar disorder; jt3 jt3 13:23 13:22 PMHx: pancreatic cancer; jt3 jt3 13:23 13:22 PMHx: Alcoholism; jt3 jt3 13:23 13:22 PMHx: Parkinsons; jt3 jt3 13:23 13:22 PMHx: DT; jt3 jt3 13:23 13:22 PMHx: Anxiety; jt3 jt3 13:23 13:22 PMHx: Depression; jt3 jt3 13:23 13:22 PMHx: TBI; jt3 jt3 13:23 13:22 PSHx: Left 5 th amputation; jt3 jt3 13:23 13:22 PSHx: Heart ablation; jt3 jt3 13:23 13:22 PSHx: Right shoulder sx; jt3 jt3
== END 2021-04-20 15:14 | disposition left against medical advice (07) ==
LOC: ER 13:00
DX: F10.20 Alcohol dependence, uncomplicated (principal); F17.210 Nicotine dependence, cigarettes, uncomplicated; Z88.5 Allergy status to narcotic agent
CPT/HCPCS: 36415; 80048; 80076; 80307; 80320; 80329; 81003; 85025; 85610; 85730; 93005; 96374; 99284; J3360; J3411; J7030

== ENCOUNTER 2021-04-22 20:46 | Emergency (ER) | payer SELFPAY ==
[2021-04-22 21:39] LABS: Absolute Lymphocytes (CBC) 1.9 K/uL (0.7-4.9); Basophils % 1.3 % (0-1.3); Hematocrit 44.1 % (39.6-49.0); Lymphocytes % 42.2 % (15.3-44.8); RBC Red Blood Cell Count 4.59 M/uL (4.33-5.43)
[2021-04-22 21:54] LABS: Protime INR 0.89
[2021-04-22 22:02] LABS: ALT/SGPT 77 U/L (12-78); AST/SGOT 120 U/L (15-37); Albumin 3.9 g/dL (3.4-5.0); Alkaline Phosphatase 118 U/L (45-117); BUN Blood Urea Nitrogen 9 mg/dL (7-18); Bicarbonate 30 mmol/L (21-32); Bilirubin Direct 0.2 mg/dL (0-0.2); Bilirubin Total 0.4 mg/dL (0.2-1.0); Glucose Level 132 mg/dL (74-106); Protein, Total 7.7 g/dL (6.4-8.2); Sodium Level 140 mmol/L (136-145)
--- NOTE | 2021-04-22 22:18 | EDPHYS ---
Physician Documentation [facility] Name: Walt Velazquez Age: 50 yrs Sex: Male : 1970 Arrival Date: 04/22/2021 Time: 20:49 Bed 8 Private MD: ED Physician Finesse Grajeda HPI: 04/22 21:35 This 50 yrs old Male presents to ER via EMS with complaints of intoxication ma2 with alcohol. 21:35 Onset: The symptoms/episode began/occurred gradually, 1 day(s) ago. Associated signs ma2 and symptoms: Pertinent negatives: anxiety, delusions, hallucinations, headache, homicidal ideation, paranoia, shortness of breath, suicide ideation. Severity of symptoms: At their worst the symptoms were moderate in the emergency department the symptoms are unchanged. The patient has experienced similar episodes in the past. Historical: - Allergies: 21: No Known Allergies; df1 - Home Meds: 21: Unable to obtain [Active]; df1 - PMHx: 21:01 Hypertensive disorder; Bipolar II; Parkinsons; df1 - PSHx: 21:01 None; df1 - Immunization history:: Adult Immunizations not up to date, Client reports having NOT received the Covid vaccine. - Social history:: Smoking status: Patient reports the use of cigarette tobacco products, smokes one pack cigarettes per day. Patient uses alcohol, on a daily basis. 24pk/day of beer. Patient uses Patient/guardian denies using street drugs, IV drugs, The patient lives with family. - Family history:: not pertinent. ROS: 21:35 Constitutional: Negative for fever, chills, and weight loss. ma2 21:35 All other systems are negative. Exam: 21:35 Constitutional: This is a well developed, well nourished patient who is awake, alert, ma2 and in no acute distress. Head/Face: Normocephalic, atraumatic. Eyes: Pupils equal round and reactive to light, extra-ocular motions intact. Lids and lashes normal. Conjunctiva and sclera are non-icteric and not injected. Cornea within normal limits. Periorbital areas with no swelling, redness, or edema. ENT: Nares patent. No nasal discharge, no septal abnormalities noted. Tympanic membranes are normal and external auditory canals are clear. Oropharynx with no redness, swelling, or masses, exudates, or evidence of obstruction, uvula midline. Mucous membranes moist. Neck: Trachea midline, no thyromegaly or masses palpated, and no cervical lymphadenopathy. Supple, full range of motion without nuchal rigidity, or vertebral point tenderness. No Meningismus. Chest/axilla: Normal chest wall appearance and motion. Nontender with no deformity. No lesions are appreciated. Cardiovascular: Regular rate and rhythm with a normal S1 and S2. No gallops, murmurs, or rubs. Normal PMI, no JVD. No pulse deficits. Respiratory: Lungs have equal breath sounds bilaterally, clear to auscultation and percussion. No rales, rhonchi or wheezes noted. No increased work of breathing, no retractions or nasal flaring. Abdomen/GI: Soft, non-tender, with normal bowel sounds. No distension or tympany. No guarding or rebound. No evidence of tenderness throughout. Back: No spinal tenderness. No costovertebral tenderness. Full range of motion. Skin: Warm, dry with normal turgor. Normal color with no rashes, no lesions, and no evidence of cellulitis. MS/ Extremity: Pulses equal, no cyanosis. Neurovascular intact. Full, normal range of motion. Neuro: Awake and alert, GCS 15, oriented to person, place, time, and situation. Cranial nerves II-XII grossly intact. Motor strength 5/5 in all extremities. Sensory grossly intact. Cerebellar exam normal. Normal gait. Psych: Awake, alert, with orientation to person, place and time. Behavior, mood, and affect are within normal limits. Vital Signs: 20:58 BP 131 / 64; Pulse 85; Resp 18; Temp 97.9; Pulse Ox 100% on R/A; Weight 65.77 kg; df1 Height 5 ft. 6 in. (167.64 cm); Pain 10/10; 21:24 BP 118 / 79; Pulse 83; Resp 18; Pulse Ox 100% on R/A; df1 22:32 BP 102 / 60; Pulse 81; Resp 18; Pulse Ox 98% ; df1 20:58 Body Mass Index 23.40 (65.77 kg, 167.64 cm) df1 MDM: 20:49 Patient medically screened. ma2 21:35 Differential diagnosis: drug withdrawal. acute psychotic break, depression, psychosis ma2 secondary to non-compliance. 22:18 Data reviewed: vital signs, nurses notes. Counseling: I had a detailed discussion with kyle the patient and/or guardian regarding: the historical points, exam findings, and any diagnostic results supporting the discharge/admit diagnosis, the presence of at least one elevated blood pressure reading (>120/80) during this emergency department visit, the need for outpatient follow up. Response to treatment: the patient's symptoms have markedly improved after treatment. 22:18 ED course: patient is sober ao x 4 now. [facility] 04/22 20:49 Order name: Acetaminophen; Complete Time: 22:17 [facility] 04/22 20:49 Order name: Basic Metabolic Panel; Complete Time: 22:17 [facility] 04/22 20:49 Order name: CBC with Diff; Complete Time: 22:17 [facility] 04/22 20:49 Order name: ETOH Level; Complete Time: 22:17 [facility] 04/22 20:49 Order name: Hepatic Function; Complete Time: 22:17 [facility] 04/22 20:49 Order name: PT-INR; Complete Time: 22:17 [facility] 04/22 20:49 Order name: Ptt, Activated; Complete Time: 22:17 [facility] 04/22 20:49 Order name: Salicylate; Complete Time: 22:17 [facility] 04/22 20:49 Order name: IV Saline Lock; Complete Time: 21:22 [facility] 04/22 20:49 Order name: Labs collected and sent; Complete Time: 21:22 [facility] 04/22 20:49 Order name: Urine Dipstick-Ancillary (obtain specimen) ma2 Administered Medications: No medications were administered Disposition Summary: 04/22/21 22:18 Discharge Ordered Location: Home ma2 Condition: Stable ma2 Diagnosis - Alcohol dependence with intoxication - resolved ma2 Followup: ma2 - With: Private Physician - When: Tomorrow - Reason: If symptoms return Discharge Instructions: - Discharge Summary Sheet ma2 - Alcohol Abuse and Nutrition ma2 Forms: - Medication Reconciliation Form ma2 - Thank You Letter ma2 - Antibiotic Education ma2 - Prescription Opioid Use ma2 Signatures: Dispatcher [employer] EDMS Finesse Grajeda MD MD al2 Harriet Green df1 Corrections: (The following items were deleted from the chart) 21:03 21:01 Allergies: Trazodone; df1 df1 : 20:49 Suicide Screening ([place]) ordered. ma2 df1 20:49 EKG - Nurse/Tech ordered. ma2 df1
--- NOTE | 2021-04-22 22:18 | ER ---
Nurse's Notes [facility] Name: Walt Velazquez Age: 50 yrs Sex: Male : 1970 Arrival Date: 04/22/2021 Time: 20:49 Bed 8 Private MD: Diagnosis: Alcohol dependence with intoxication-resolved Presentation: 04/22 20:58 Chief complaint: EMS states: Intox/psych. Coronavirus screen: Vaccine status: Patient df1 reports being unvaccinated. Client denies travel out of the [place] in the last 14 days. At this time, the client does not indicate any symptoms associated with coronavirus-19. Ebola Screen: Patient negative for fever greater than or equal to 101.5 degrees Fahrenheit, and additional compatible Ebola Virus Disease symptoms Patient denies exposure to infectious person. Patient denies travel to an Ebola-affected area in the 21 days before illness onset. Initial Sepsis Screen: Does the patient meet any 2 criteria? No. Patient's initial sepsis screen is negative. Does the patient have a suspected source of infection? No. Patient's initial sepsis screen is negative. Risk Assessment: Do you want to hurt yourself or someone else? Patient reports no desire to harm self or others. Onset of symptoms was April 22, 2021. 20:58 Method Of Arrival: EMS: [facility] df1 20:58 Acuity: LATASHA 3 df1 21:04 Note Pt arrived via EMS. Per EMS pt found in someone's front yard and they called 911. df1 Pt has h/o daily beer drinker, bipolar, Parkinson's, HTN and homeless. Per EMS pt baseline is A\T\O x 2-3. Pt states has not taken any Psych meds in awhile because he doesn't know where he put them. 22:33 Note Pt up for discharge but has no sober ride. Placed call to sister, left voice mail. df1 Yessenia Hannon [phone]. 22:37 Note Pt ate 2 box lunches now resting with eyes closed. No distress noted. Pt on df1 monitor. Triage Assessment: 21:03 General: Appears unkempt, Behavior is calm, cooperative. Pain:. df1 Historical: - Allergies: 21:01 No Known Allergies; df1 - Home Meds: 21:01 Unable to obtain [Active]; df1 - PMHx: 21:01 Hypertensive disorder; Bipolar II; Parkinsons; df1 - PSHx: 21:01 None; df1 - Immunization history:: Adult Immunizations not up to date, Client reports having NOT received the Covid vaccine. - Social history:: Smoking status: Patient reports the use of cigarette tobacco products, smokes one pack cigarettes per day. Patient uses alcohol, on a daily basis. 24pk/day of beer. Patient uses Patient/guardian denies using street drugs, IV drugs, The patient lives with family. - Family history:: not pertinent. Screenin:03 Abuse screen: Denies threats or abuse. Nutritional screening: No deficits noted. df1 Tuberculosis screening: No symptoms or risk factors identified. Fall Risk Fall in past 12 months (25 points). Secondary diagnosis (15 points) IV access (20 points). Ambulatory Aid- None/Bed Rest/Nurse Assist (0 pts). Gait- Weak (10 pts.). Mental Status- Oriented to own ability (0 pts). Total Cadena Fall Scale indicates. Assessment: 21:23 General: Appears unkempt, Behavior is calm, cooperative, Smells of alcohol, Reports all df1 over body pain. Neuro: No deficits noted. Cardiovascular: No deficits noted. Respiratory: No deficits noted. GI: No deficits noted. : No deficits noted. EENT: No deficits noted. Derm: No deficits noted. Musculoskeletal: No deficits noted. Vital Signs: 20:58 BP 131 / 64; Pulse 85; Resp 18; Temp 97.9; Pulse Ox 100% on R/A; Weight 65.77 kg; df1 Height 5 ft. 6 in. (167.64 cm); Pain 10/10; 21:24 BP 118 / 79; Pulse 83; Resp 18; Pulse Ox 100% on R/A; df1 22:32 BP 102 / 60; Pulse 81; Resp 18; Pulse Ox 98% ; df1 20:58 Body Mass Index 23.40 (65.77 kg, 167.64 cm) df1 ED Course: 20:49 Patient arrived in ED. mw2 20:49 Finesse Grajeda MD is Attending Physician. ma2 20:58 Harriet Green is Primary Nurse. df1 21:01 Triage completed. df1 21:04 Arm band placed on left wrist. df1 21:04 Patient has correct armband on for positive identification. Bed in low position. Call df1 light in reach. Side rails up X 1. Pulse ox on. NIBP on. Lights dimmed. Warm blanket given. 21:04 No provider procedures requiring assistance completed. df1 21:23 Acetaminophen Sent. df1 21:23 Basic Metabolic Panel Sent. df1 21:23 CBC with Diff Sent. df1 21:23 ETOH Level Sent. df1 21:23 Hepatic Function Sent. df1 21:23 PT-INR Sent. df1 21:23 Salicylate Sent. df1 21:23 Ptt, Activated Sent. df1 21:23 Inserted saline lock: 20 gauge in right antecubital area, using aseptic technique. df1 23:43 IV discontinued, intact, bleeding controlled, No redness/swelling at site. Pressure df1 dressing applied. Administered Medications: No medications were administered Outcome: 22:18 Discharge ordered by . kyle 23:42 Discharged to Unknown Pt homeless. Called sister and left message. Pt going to sleep df1 in extra room in fast track until morning. 23:42 Condition: good 23:42 Discharge instructions given to patient, Instructed on discharge instructions, follow up and referral plans. Demonstrated understanding of instructions, follow-up care. 23:43 Patient left the ED. df1 Signatures: Finesse Grajeda MD MD ma2 Rere Alvarez 2 Harriet Green df1 Corrections: (The following items were deleted from the chart) 21:03 21:01 Allergies: Trazodone; df1 df1
[2021-04-23 01:01] VITALS: TEMP 97.9
[2021-04-23 01:04] VITALS: BP 102/60; O2SAT 98
== END 2021-04-22 23:43 | disposition home or self-care (01) ==
LOC: ER 20:46
DX: F10.229 Alcohol dependence with intoxication, unspecified (principal); I10 Essential (primary) hypertension; F31.81 Bipolar II disorder; F17.210 Nicotine dependence, cigarettes, uncomplicated
CPT/HCPCS: 36415; 80048; 80076; 80320; 80329; 85025; 85610; 85730; 99284

== ENCOUNTER 2021-04-28 19:06 | Emergency (ER) | payer SELFPAY ==
--- NOTE | 2021-04-28 20:46 | ER ---
Nurse's Notes [facility] Name: Walt Velazquez Age: 50 yrs Sex: Male : 1970 Arrival Date: 04/28/2021 Time: 19:08 Bed Waiting Private MD: Diagnosis: Person with feared health complaint in whom no diagnosis is made Presentation: 04/28 19:27 Chief complaint: EMS states: pt c/o memory loss and high blood pressure, pt states he bb is a mental pt and does not know how he got here. Coronavirus screen: At this time, the client does not indicate any symptoms associated with coronavirus-19. Ebola Screen: No symptoms or risks identified at this time. Initial Sepsis Screen: Does the patient meet any 2 criteria? No. Patient's initial sepsis screen is negative. Does the patient have a suspected source of infection? No. Patient's initial sepsis screen is negative. Risk Assessment: Do you want to hurt yourself or someone else? Patient reports no desire to harm self or others. Onset of symptoms is unknown. 19:27 Method Of Arrival: EMS: [facility] bb 19:27 Acuity: LATASHA 4 bb Triage Assessment: 19:29 General: Appears in no apparent distress. slender, Behavior is calm. Pain: Denies pain. bb EENT: Sclera/Cornea are reddened in bilaterally. Neuro: Level of Consciousness is awake, obeys commands, listless, Oriented to person, place. Cardiovascular: Capillary refill < 3 seconds Patient's skin is warm and dry. Respiratory: Respiratory effort is even, unlabored, Respiratory pattern is regular. GI: No signs and/or symptoms were reported involving the gastrointestinal system. Derm: Skin is dry, Skin is black, Skin temperature is warm. Musculoskeletal: Circulation, motion, and sensation intact. Historical: - Allergies: 19:29 No Known Allergies; bb - Home Meds: 19:29 Unable to obtain [Active]; bb - PMHx: 19:29 Bipolar II; Hypertensive disorder; Parkinsons; bb - PSHx: 19:29 Unable to Obtain; bb - Immunization history:: Adult Immunizations unknown, . - Social history:: Smoking status: Patient reports the use of cigarette tobacco products, Patient uses alcohol, patient/guardian reports chronic longstanding heavy alcohol consumption. Screenin:52 Abuse screen: Denies threats or abuse. Nutritional screening: No deficits noted. bb Tuberculosis screening: No symptoms or risk factors identified. Fall Risk Secondary diagnosis (15 points) No IV (0 pts). Ambulatory Aid- None/Bed Rest/Nurse Assist (0 pts). Gait- Mental Status- Overestimates/Forgets Limitations (15 pts.). Total Cadena Fall Scale indicates Low Risk Score (25-44 pts). Fall prevention measures have been instituted. As available Patient and Family Educated on Fall Prevention Program and strategies. Assessment: 20:52 Reassessment: No changes from previously documented assessment. pt seen by Monico CISNEROS and discharged. Vital Signs: 19:27 BP 117 / 63; Pulse 108; Resp 16 S; Temp 98.6(O); Pulse Ox 98% on R/A; Weight 61.23 kg bb (R); Height 5 ft. 3 in. (160.02 cm) (R); Pain 0/10; 20:55 BP 124 / 78; Pulse 124; Resp 18 S; Temp 99(TE); Pulse Ox 100% on R/A; bb 19:27 Body Mass Index 23.91 (61.23 kg, 160.02 cm) bb ED Course: 19:08 Patient arrived in ED. cf2 19:29 Triage completed. bb 19:29 Arm band placed on Patient placed in waiting room, Patient notified of wait time. bb 20:12 [facility] 20:12 Elton Lopez MD is Attending Physician. [facility] 20:52 Patient has correct armband on for positive identification. bb 20:52 No provider procedures requiring assistance completed. Patient did not have IV access bb during this emergency room visit. Administered Medications: No medications were administered Outcome: 20:46 Discharge ordered by . [facility] 20:56 Discharged to home ambulatory. bb 20:56 Condition: unchanged 20:56 Discharge instructions given to patient, Instructed on discharge instructions, follow up and referral plans. 20:57 Patient left the ED. bb Signatures: Monico Kumar PA PA jmm Ballard, Brenda, RN RN Carlos Barron cf2
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
[2021-04-28 21:19] VITALS: BP 124/78; TEMP 99; O2SAT 100
== END 2021-04-28 20:57 | disposition home or self-care (01) ==
LOC: ER 19:06
DX: Z71.1 Person with feared health complaint in whom no diagnosis is made (principal); F31.9 Bipolar disorder, unspecified; I10 Essential (primary) hypertension; G20 Parkinson's disease
CPT/HCPCS: 99283

== ENCOUNTER 2021-04-29 01:15 | Emergency (ER) | payer SELFPAY ==
[2021-04-29] MEDS ORDERED: NA CHLORIDE 0.9% 1,000 ML ONE ×2 (01:44→02:35)
[2021-04-29] MEDS ORDERED: LORazepam 2 MG/ML VIAL ONE (01:44)
[2021-04-29 02:06] LABS: Absolute Lymphocytes (CBC) 2.1 K/uL (0.7-4.9); Basophils % 1.1 % (0-1.3); Hematocrit 41.1 % (39.6-49.0); Lymphocytes % 27.8 % (15.3-44.8); MPV 6.4 fL (7.6-11.3); Protime INR 0.81; RBC Red Blood Cell Count 4.25 M/uL (4.33-5.43)
[2021-04-29 02:20] LABS: ALT/SGPT 57 U/L (12-78); AST/SGOT 75 U/L (15-37); Albumin 3.6 g/dL (3.4-5.0); Alkaline Phosphatase 180 U/L (45-117); BUN Blood Urea Nitrogen 11 mg/dL (7-18); Bicarbonate 29 mmol/L (21-32); Bilirubin Direct 0.1 mg/dL (0-0.2); Bilirubin Total 0.2 mg/dL (0.2-1.0); Glucose Level 134 mg/dL (74-106); Potassium 3.6 mmol/L (3.5-5.1); Protein, Total 7.5 g/dL (6.4-8.2); Sodium Level 141 mmol/L (136-145)
[2021-04-29] MEDS ORDERED: THIAMINE 200 MG/2 ML INJ ONE (02:35)
[2021-04-29] MEDS ORDERED: MULTIVITAMINS 10 ML VIAL (INJ) IV ONE (02:36)
[2021-04-29] MEDS ORDERED: FOLIC ACID 5 MG/ML VIAL ONE (02:37)
[2021-04-29 03:25] LABS: Urine Blood Negative (Negative); Urine Glucose Trace (Negative); Urine Protein Negative (Negative); Urine pH 5.5 (5.0-7.0)
[2021-04-29 03:44] LABS: Barbiturates NEGATIVE (NEGATIVE); Benzodiazepines NEGATIVE (NEGATIVE); Cocaine NEGATIVE (NEGATIVE); METHAMPHETAM NEGATIVE (NEGATIVE); Methadone NEGATIVE (NEGATIVE); Opiates NEGATIVE (NEGATIVE); Phencyclidine NEGATIVE (NEGATIVE); THC Cannibis NEGATIVE (NEGATIVE)
--- NOTE | 2021-04-29 06:39 | ER ---
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 Coronavirus screen: Vaccine status: At this time, unable to obtain information related to travel outside the [place] At this time, the client does not indicate any symptoms associated with coronavirus-19. Ebola Screen: Patient negative for fever greater than or equal to 101.5 degrees Fahrenheit, and additional compatible Ebola Virus Disease symptoms. Initial Sepsis Screen: Does the patient meet any 2 criteria? No. Patient's initial sepsis screen is negative. Does the patient have a suspected source of infection? No. Patient's initial sepsis screen is negative. Risk Assessment: Do you want to hurt yourself or someone else? Patient reports no desire to harm self or others. Onset of symptoms was April 28, 2021. 01:21 Method Of Arrival: EMS: [facility] cc4 01:21 Acuity: LATASHA 2 cc4 01:21 Chief complaint: ETOH intoxication. 4 Triage Assessment: 01:21 General: Appears unkempt, malnourished, smells strongly of ETOH; tremors noted cc4 infequently.. Behavior is cooperative, appears intoxicated.. Pain: Denies pain. EENT: No deficits noted. Eyes reddened.. Nares are clear Oral mucosa is dry. Poor dentition noted. Neuro: Level of Consciousness is awake, obeys commands, confused, appears intoxicated.. Oriented to person, drowsy. Internal Combustion Engine Inspector are equal bilaterally Moves all extremities. Speech is normal, Facial symmetry appears normal, Pupils are PERRLA, Intact Babinski is positive. Cardiovascular: No deficits noted. Heart tones S1 S2. Respiratory: No deficits noted. Airway is patent Breath sounds are clear bilaterally. GI: No deficits noted. Abdomen is flat, Bowel sounds present X 4 quads. : Urine is incontinent of urine. Derm: Skin is intact. Musculoskeletal: No deficits noted. Capillary refill < 3 seconds, Range of motion: intact in all extremities. Injury Description: Denies any injury; no physical deformity noted. Historical: - Allergies: No Known Allergies; cc4 - Home Meds: Unable to obtain [Active]; cc4 - PMHx: : Bipolar II; Hypertensive disorder; Parkinsons; cc4 - Immunization history:: unknown. - Social history:: Patient uses alcohol, patient/guardian reports chronic longstanding heavy alcohol consumption. Smoking status: unknown states, "I'm a alcoholic".. Screenin: Abuse screen: Denies threats or abuse. Nutritional screening: states, "I'm hungry".. cc4 Tuberculosis screening: No symptoms or risk factors identified. Fall Risk Fall in past 12 months (25 points). Assessment: : Reassessment: See triage assessment. cc4 01:25 Reassessment: No changes from previously documented assessment. Dr. Lopez in to see \\T\\ cc4 assessing; incontinent of urine with wet clothing removed; linen changed; turning self from side to side upon . 01:45 Reassessment: # 20 g angiocath inserted right AC x1 attempt \\T\\ converted to saline lock, cc4 nida. well; blood drawn \\T\\ sent to lab. 01:50 Reassessment: IV NS hung to saline lock site right AC \\T\\ infusing \\T\\ bolus rate with no cc 4 difficulty; ativan 1 mg given slow IVP; awake \\T\\ states, "I'm hungry"; instructed that once test completed I would check on diet with no v/u. 02:00 Reassessment: Sleeping; to CT via stretcher accompanied by profile grinder technician; NAD. cc4 03:21 Reassessment: Sleeping; # 18 Fr johnson catheter inserted with no difficulty \\T\\ drained cc4 900 ml clear light yellow urine to dependent bag; facial grimace noted upon insertion of johnson; BP 97/64; HR 78; RR 15; O2 sat 97% RA; IV banana bag patent/infusing right AC \\T\\ 150ml/hr/pump with no s/sx's of infiltration noted; urine specimen collected \\T\\ sent to lab. 04:02 Reassessment: No changes from previously documented assessment. see q 15 min vital cc4 signs. 05:00 Reassessment: condition unchanged; Dr. Lopez notified with instructions to try \\T\\ get cc4 pt up \\T\\ 0630; see documented vital signs; IV banana bag con't to infuse \\T\\ 150ml/hr/pump with no s/sx's of infiltration. 06:00 Reassessment: Awake \\T\\ more alert; asking to have johnson cath. removed; 1200 ml output cc4 clear yellow urine; johnson catheter removed with no difficulty. 06:30 Reassessment: Patient appears in no apparent distress at this time. Awake \\T\\ eating with cc4 no N/V; NAD; IV complete \\T\\ dc'd. Patient states symptoms have improved. Vital Signs: 01:21 BP 116 / 74; Pulse 94; Resp 18; Temp 97.5(O); Pulse Ox 96% on R/A; cc4 01:21 Weight 61.23 kg; Height 5 ft. 5 in. (165.10 cm); cc4 01:21 BP 116 / 74; Pulse 94; Resp 18; Temp 97.5; Pulse Ox 96% on R/A; Weight 61.23 kg; Height cc4 5 ft. 5 in. (165.10 cm); 01:30 BP 108 / 72; Pulse 92; Resp 16; Pulse Ox 100% on R/A; cc4 01:45 BP 96 / 62; Pulse 82; Resp 16; Pulse Ox 100% on R/A; cc4 02:00 BP 98 / 63; Pulse 78; Resp 16; Pulse Ox 99% on R/A; cc4 02:24 BP 91 / 51; Pulse 76; Resp 14; Pulse Ox 97% on R/A; cc4 02:47 BP 86 / 56; Pulse 77; Resp 13; Pulse Ox 95% on R/A; cc4 03:00 BP 87 / 56; Pulse 78; Resp 14; Pulse Ox 95% on R/A; cc4 03:15 BP 97 / 66; Pulse 78; Resp 16; Pulse Ox 97% on R/A; cc4 03:30 BP 90 / 58; Pulse 80; Resp 15; Pulse Ox 97% on R/A; cc4 03:45 BP 95 / 65; Pulse 78; Resp 16; Pulse Ox 98% on R/A; cc4 04:00 BP 102 / 65; Pulse 77; Resp 14; Pulse Ox 97% on R/A; cc4 04:15 BP 91 / 61; Pulse 77; Resp 14; Pulse Ox 98% on R/A; cc4 04:30 BP 89 / 58; Pulse 77; Resp 15; Pulse Ox 97% on R/A; cc4 04:45 BP 92 / 59; Pulse 82; Resp 14; Pulse Ox 96% on R/A; cc4 05:00 BP 99 / 73; Pulse 79; Resp 16; Pulse Ox 99% on R/A; cc4 05:15 BP 93 / 65; Pulse 78; Resp 14; Pulse Ox 96% on R/A; cc4 05:45 BP 92 / 70; Pulse 83; Resp 15; Pulse Ox 96% on R/A; cc4 06:00 BP 100 / 66; Pulse 81; Resp 16; Temp 97.6(O); Pulse Ox 98% on R/A; cc4 06:15 BP 93 / 64; Pulse 79; Resp 16; Pulse Ox 99% on R/A; cc4 06:30 BP 105 / 68; Pulse 79; Resp 18; Pulse Ox 99% on R/A; cc4 06:47 BP 105 / 79; Pulse 106; Resp 20; Temp 97.9; Pulse Ox 100% on R/A; cc4 01:21 Body Mass Index 22.46 (61.23 kg, 165.10 cm) cc4 ED Course: 01:19 Patient arrived in ED. tt3 01:21 Arm band placed on. cc4 01:21 Patient has correct armband on for positive identification. Placed in gown. Bed in low cc4 position. Call light in reach. Side rails up X2. surveyor helper rod on. Pulse ox on. NIBP on. 01:25 Elton Lopez MD is Attending Physician. 7 01:40 Lorraine Cagle, ROBERTO is Primary Nurse. cc4 01:53 Acetaminophen Sent. cc4 01:54 Basic Metabolic Panel Sent. cc4 01:54 CBC with Diff Sent. cc4 01:54 ETOH Level Sent. cc4 01:54 Hepatic Function Sent. cc4 01:54 PT-INR Sent. cc4 01:54 Ptt, Activated Sent. cc4 01:54 Salicylate Sent. cc4 01:54 Urine Drug Screen Sent. cc4 01:54 CT Head C Spine Sent. cc4 02:05 Inserted saline lock: 20 gauge in right forearm, using aseptic technique. Blood oe collected. 02:10 Triage completed. cc4 02:24 CT Head C Spine In Process Unspecified. EDMS 06:47 No provider procedures requiring assistance completed. cc4 06:47 IV discontinued, intact, bleeding controlled, No redness/swelling at site. Pressure cc4 dressing applied. Administered Medications: 01:50 Drug: NS 0.9% 1000 ml Route: IV; Rate: 1000 ml; Site: right antecubital; cc4 02:45 Follow up: IV Status: Completed infusion; IV Intake: 1000ml cc4 01:50 Drug: Ativan (LORazepam) 1 mg Route: IVP; Site: right antecubital; cc4 02:00 Follow up: Response: No adverse reaction; Other cc4 02:45 Drug: Banana Bag - (NS 0.9% 1000 ml, foLIC Acid 1 mg, Thiamine 100 mg, Multivitamin 1 cc4 amp) Route: IV; Rate: calculated rate; Site: right antecubital; 06:30 Follow up: Urine output 1200 ml; Response: No adverse reaction; IV Status: Completed cc4 infusion; IV Intake: 1000ml Intake: 02:45 IV: 1000ml; Total: 1000ml. cc4 06:30 IV: 1000ml; Total: 2000ml. cc4 Output: 06:30 Urine: 1200ml; Total: 1200ml. cc4 Outcome: 06:39 Discharge ordered by . [facility] 06:47 Discharged to home ambulatory. cc4 06:47 Condition: improved 06:47 Discharge instructions given to patient, Instructed on discharge instructions, follow up and referral plans. Demonstrated understanding of instructions, follow-up care. 07:06 Patient left the ED. cc4 Signatures: Dispatcher [employer] EDNM Edd Lynn Maurice, MD MD 7 Farshad Cristobal3 Lorraine Cagle RN RN cc4
--- NOTE | 2021-04-29 06:40 | EDPHYS ---
Physician Documentation [facility] Name: Walt Velazquez Age: 50 yrs Sex: Male : 1970 Arrival Date: 04/29/2021 Time: 01:19 Bed 17 Private MD: ED Physician Elton Lopez HPI: 04/29 02:06 This 50 yrs old Male presents to ER via Unassigned with complaints of Alcohol mh7 intoxication. 02:06 The patient presents with decreased mental status. Onset: The symptoms/episode mh7 began/occurred at an unknown time. Possible causes: alcohol, has a history of chronic alcohol abuse. Associated signs and symptoms: Pertinent positives: confusion, Pertinent negatives: abdominal pain, agitation, blurred vision, chest pain, combativeness, diaphoresis, diarrhea, dizziness, headache, lightheadedness, nausea, numbness, palpitations, shortness of breath, tingling, vertigo, vomiting, weakness. Current symptoms: In the emergency department the patient's symptoms are unchanged from the initial presentation. Patient's baseline: Unknown. The patient has experienced similar episodes in the past, chronically. The patient has been recently seen at the [facility] Emergency Department, yesterday. Historical: - Allergies: :21 No Known Allergies; cc4 - Home Meds: :21 Unable to obtain [Active]; cc4 - PMHx: 01:21 Bipolar II; Hypertensive disorder; Parkinsons; cc4 - Immunization history:: unknown. - Social history:: Patient uses alcohol, patient/guardian reports chronic longstanding heavy alcohol consumption. Smoking status: unknown states, "I'm a alcoholic".. ROS: 02:06 Constitutional: Negative for fever, chills, and weight loss, Eyes: Negative for injury, mh7 pain, redness, and discharge, ENT: Negative for injury, pain, and discharge, Neck: Negative for injury, pain, and swelling, Cardiovascular: Negative for chest pain, palpitations, and edema, Respiratory: Negative for shortness of breath, cough, wheezing, and pleuritic chest pain, Abdomen/GI: Negative for abdominal pain, nausea, vomiting, diarrhea, and constipation, Back: Negative for injury and pain, : Negative for injury, bleeding, discharge, and swelling, MS/Extremity: Negative for injury and deformity, Skin: Negative for injury, rash, and discoloration. 02:06 Psych: Negative for depression, anxiety, suicide ideation, homicidal ideation, and mh7 hallucinations, Allergy/Immunology: Negative for hives, rash, and allergies, Endocrine: Negative for neck swelling, polydipsia, polyuria, polyphagia, and marked weight changes, Hematologic/Lymphatic: Negative for swollen nodes, abnormal bleeding, and unusual bruising. 02:06 Neuro: Exam: 02:11 Head/Face: Normocephalic, atraumatic. Eyes: Pupils equal round and reactive to light, mh7 extra-ocular motions intact. Lids and lashes normal. Conjunctiva and sclera are non-icteric and not injected. Cornea within normal limits. Periorbital areas with no swelling, redness, or edema. ENT: Nares patent. No nasal discharge, no septal abnormalities noted. Tympanic membranes are normal and external auditory canals are clear. Oropharynx with no redness, swelling, or masses, exudates, or evidence of obstruction, uvula midline. Mucous membranes moist. Neck: Trachea midline, no thyromegaly or masses palpated, and no cervical lymphadenopathy. Supple, full range of motion without nuchal rigidity, or vertebral point tenderness. No Meningismus. Chest/axilla: Normal chest wall appearance and motion. Nontender with no deformity. No lesions are appreciated. Cardiovascular: Regular rate and rhythm with a normal S1 and S2. No gallops, murmurs, or rubs. Normal PMI, no JVD. No pulse deficits. Respiratory: Lungs have equal breath sounds bilaterally, clear to auscultation and percussion. No rales, rhonchi or wheezes noted. No increased work of breathing, no retractions or nasal flaring. Abdomen/GI: Soft, non-tender, with normal bowel sounds. No distension or tympany. No guarding or rebound. No evidence of tenderness throughout. Back: No spinal tenderness. No costovertebral tenderness. Full range of motion. Skin: Warm, dry with normal turgor. Normal color with no rashes, no lesions, and no evidence of cellulitis. MS/ Extremity: Pulses equal, no cyanosis. Neurovascular intact. Full, normal range of motion. 02:11 Constitutional: The patient appears in no acute distress, alert, awake, smells of alcohol, ETOH. 02:11 Neuro: Orientation: unable to test, the patient is clinically intoxicated, Mentation: able to follow commands, Memory: unable to test, the patient is clinically intoxicated, Cranial nerves: is grossly normal based on the patient's age, Cerebellar function: unable to test, the patient is clinically intoxicated, Motor: moves all fours, Sensation: no obvious gross deficits, Gait: not tested. seizure activity, is not displayed by the patient. Vital Signs: 01:21 BP 116 / 74; Pulse 94; Resp 18; Temp 97.5(O); Pulse Ox 96% on R/A; cc4 01:21 Weight 61.23 kg; Height 5 ft. 5 in. (165.10 cm); cc4 01:21 BP 116 / 74; Pulse 94; Resp 18; Temp 97.5; Pulse Ox 96% on R/A; Weight 61.23 kg; Height cc4 5 ft. 5 in. (165.10 cm); 01:30 BP 108 / 72; Pulse 92; Resp 16; Pulse Ox 100% on R/A; cc4 01:45 BP 96 / 62; Pulse 82; Resp 16; Pulse Ox 100% on R/A; cc4 02:00 BP 98 / 63; Pulse 78; Resp 16; Pulse Ox 99% on R/A; cc4 02:24 BP 91 / 51; Pulse 76; Resp 14; Pulse Ox 97% on R/A; cc4 02:47 BP 86 / 56; Pulse 77; Resp 13; Pulse Ox 95% on R/A; cc4 03:00 BP 87 / 56; Pulse 78; Resp 14; Pulse Ox 95% on R/A; cc4 03:15 BP 97 / 66; Pulse 78; Resp 16; Pulse Ox 97% on R/A; cc4 03:30 BP 90 / 58; Pulse 80; Resp 15; Pulse Ox 97% on R/A; cc4 03:45 BP 95 / 65; Pulse 78; Resp 16; Pulse Ox 98% on R/A; cc4 04:00 BP 102 / 65; Pulse 77; Resp 14; Pulse Ox 97% on R/A; cc4 04:15 BP 91 / 61; Pulse 77; Resp 14; Pulse Ox 98% on R/A; cc4 04:30 BP 89 / 58; Pulse 77; Resp 15; Pulse Ox 97% on R/A; cc4 04:45 BP 92 / 59; Pulse 82; Resp 14; Pulse Ox 96% on R/A; cc4 05:00 BP 99 / 73; Pulse 79; Resp 16; Pulse Ox 99% on R/A; cc4 05:15 BP 93 / 65; Pulse 78; Resp 14; Pulse Ox 96% on R/A; cc4 05:45 BP 92 / 70; Pulse 83; Resp 15; Pulse Ox 96% on R/A; cc4 06:00 BP 100 / 66; Pulse 81; Resp 16; Temp 97.6(O); Pulse Ox 98% on R/A; cc4 06:15 BP 93 / 64; Pulse 79; Resp 16; Pulse Ox 99% on R/A; 4 06:30 BP 105 / 68; Pulse 79; Resp 18; Pulse Ox 99% on R/A; 4 06:47 BP 105 / 79; Pulse 106; Resp 20; Temp 97.9; Pulse Ox 100% on R/A; 4 01:21 Body Mass Index 22.46 (61.23 kg, 165.10 cm) [facility] MDM: 06:36 Differential Diagnosis: CVA, electrolyte abnormality, alcohol intoxication, 7 hypoglycemia, intracranial bleed, overdose, seizure, UTI, volume depletion. Data reviewed: vital signs, nurses notes, EMS record, old medical records, lab test result(s), CBC, drug level(s), acetaminophen, alcohol, salicylate, electrolytes, urinalysis, urine drug screen, EKG, radiologic studies, CT scan. Data interpreted: Pulse oximetry: on room air is 99 %. Interpretation: normal. Counseling: I had a detailed discussion with the patient and/or guardian regarding: the historical points, exam findings, and any diagnostic results supporting the discharge/admit diagnosis, lab results, radiology results, the need for outpatient follow up, to return to the emergency department if symptoms worsen or persist or if there are any questions or concerns that arise at home. Response to treatment: the patient's symptoms have markedly improved after treatment. ED course: No acute distress, vital signs stable, no focal neurological deficits. Awake, alert, oriented x 3, tolerating oral intake and ambulating without difficulty.. 06:39 Patient medically screened. [facility] 04/29 01:25 Order name: Acetaminophen [facility] 04/29 01:25 Order name: Basic Metabolic Panel; Complete Time: 02:40 [facility] 04/29 01:25 Order name: CBC with Diff; Complete Time: 02:40 [facility] 04/29 01:25 Order name: ETOH Level; Complete Time: 02:40 [facility] 04/29 01:25 Order name: Hepatic Function; Complete Time: 02:40 [facility] 04/29 01:25 Order name: PT-INR; Complete Time: 02:40 [facility] 04/29 01:25 Order name: Ptt, Activated; Complete Time: 02:40 [facility] 04/29 01:25 Order name: Salicylate; Complete Time: 03:56 [facility] 04/29 01:25 Order name: Urine Drug Screen; Complete Time: 03:56 [facility] 04/29 01:26 Order name: Acetaminophen Level; Complete Time: 02:40 [facility] 04/29 01:26 Order name: CT Head C Spine [facility] 04/29 03:25 Order name: Urine Dipstick-Ancillary; Complete Time: 03:56 [facility] 04/29 01:25 Order name: EKG; Complete Time: 01:26 [facility] 04/29 01:25 Order name: EKG - Nurse/Tech; Complete Time: 02:36 [facility] 04/29 01:25 Order name: IV Saline Lock; Complete Time: 01:53 [facility] 04/29 01:25 Order name: Labs collected and sent; Complete Time: 01:53 [facility] 04/29 01:25 Order name: Suicide Screening ([place]) [facility] 04/29 01:25 Order name: Urine Dipstick-Ancillary (obtain specimen) [facility] 04/29 03:21 Order name: Sadia; Complete Time: 03:23 cc4 Administered Medications: 01:50 Drug: NS 0.9% 1000 ml Route: IV; Rate: 1000 ml; Site: right antecubital; cc4 02:45 Follow up: IV Status: Completed infusion; IV Intake: 1000ml cc4 01:50 Drug: Ativan (LORazepam) 1 mg Route: IVP; Site: right antecubital; cc4 02:00 Follow up: Response: No adverse reaction; Other cc4 02:45 Drug: Banana Bag - (NS 0.9% 1000 ml, foLIC Acid 1 mg, Thiamine 100 mg, Multivitamin 1 cc4 amp) Route: IV; Rate: calculated rate; Site: right antecubital; 06:30 Follow up: Urine output 1200 ml; Response: No adverse reaction; IV Status: Completed cc4 infusion; IV Intake: 1000ml Disposition Summary: 04/29/21 06:39 Discharge Ordered Location: Home [facility] Problem: an ongoing problem [facility] Symptoms: have improved [facility] Condition: Stable [facility] Diagnosis - Alcohol abuse with intoxication [facility] Followup: [facility] - With: Private Physician - When: 1 - 2 days - Reason: Worsening of condition, Recheck today's complaints, Continuance of care, Re-evaluation by your physician Discharge Instructions: - Discharge Summary Sheet [facility] - Alcohol Intoxication, [id number] [facility] - Alcohol Abuse and Dependence Information, Adult [facility] Forms: - Medication Reconciliation Form [facility] - Thank You Letter [facility] - Antibiotic Education [facility] - Prescription Opioid Use [facility] Signatures: Dispatcher [employer] Elton Carroll MD MD [facility] Lorraine Cagle RN RN cc4
[2021-04-29 07:39] VITALS: TEMP 97.6
[2021-04-29 07:40] VITALS: BP 93/64; O2SAT 99
--- NOTE | 2021-04-29 10:56 | RAD REPORT ---
EXAM DESCRIPTION: CT - Head C Spine Mpr Wo Con - 04/29/2021 6:29 am CLINICAL HISTORY: The patient is 50 years old and is Male; AMS TECHNIQUE: Axial computed tomography images of the head/brain and cervical spine without intravenous contrast. Sagittal and coronal reformatted images were created and reviewed. This CT exam was pe rformed using one or more of the following dose reduction techniques: automated exposure control, a djustment of the mA and/or kV according to patient size, and/or use of iterative reconstruction techn ique. COMPARISON: February 18, 2021. FINDINGS: Brain: Mild cerebral atrophy. Mild nonspecific white matter changes likely related to ch ronic microvascular ischemic disease. No hemorrhage. Ventricles: Mild ventricular prominence. Skull: No acute fracture. Sinuses: Maxillary sinus mucosal thickening. Mastoid air cells: Unremarkable as visualized. No mastoid effusion. Vertebrae: No acute cervical spine fracture or subluxation. Features of diffuse idiopathic skelet al hyperostosis in the cervical spine. Discs/spinal canal/neural foramina: Moderate bilateral neural foraminal narrowing at C5-6. Moderate right neural foraminal narrowing at C6-7. Multilevel disc space narrowing and degenerative endplate changes. Soft tissues: Small 1 cm subcutaneous cyst in the frontal scalp. IMPRESSION: 1. No acute intracranial abnormality. 2. No acute cervical spine fracture or subluxation. Electronically signed by: Yovany Weller MD 04/29/2021 3:08 AM YARD STOCKER Due to temporary technical issues with the PACS/Fluency reporting system, reports are being signed by the in house radiologists without review as a courtesy to insure prompt reporting. The interpreting radiologist is fully responsible for the content of the report.
--- NOTE | 2021-04-29 18:24 | EKG ---
Test Date: 2021-04-29 Test Time: 02:01:36 Dry Color Tester: DAMIAN MEASUREMENT RESULTS: Intervals: Rate: 79 [place]: 190 QRSD: 88 QT: 350 QTc: 401 [place]: P: 52 [place]: 190 QRS: 37 T: 25 INTERPRETIVE STATEMENTS: Normal sinus rhythm Normal ECG Compared to ECG 04/20/2021 13:47:13 No significant changes Electronically Signed On 04-29-21 18:23:27 [employer]ITION SERVICES SUPERVISOR by Asim Thompson
== END 2021-04-29 07:06 | disposition home or self-care (01) ==
LOC: ER 01:15
DX: F10.129 Alcohol abuse with intoxication, unspecified (principal); G20 Parkinson's disease; F31.81 Bipolar II disorder; I10 Essential (primary) hypertension
CPT/HCPCS: 36415; 70450; 72125; 80048; 80076; 80307; 80320; 80329; 81003; 85025; 85610; 85730; 93005; 96361; 96365; 96366; 96375; 99285; J3411; J7030

== ENCOUNTER 2021-05-05 20:41 | Emergency (ER) | payer SELFPAY ==
[2021-05-05 21:29] LABS: Absolute Lymphocytes (CBC) 1.7 K/uL (0.7-4.9); Basophils % 2.1 % (0-1.3); Hematocrit 39.6 % (39.6-49.0); Lymphocytes % 39.4 % (15.3-44.8); MPV 6.6 fL (7.6-11.3); RBC Red Blood Cell Count 4.18 M/uL (4.33-5.43)
[2021-05-05 21:37] LABS: Protime INR 0.84
[2021-05-05 21:52] LABS: ALT/SGPT 60 U/L (12-78); AST/SGOT 87 U/L (15-37); Albumin 3.4 g/dL (3.4-5.0); Alkaline Phosphatase 163 U/L (45-117); BUN Blood Urea Nitrogen 10 mg/dL (7-18); Bicarbonate 27 mmol/L (21-32); Bilirubin Direct 0.1 mg/dL (0-0.2); Bilirubin Total 0.3 mg/dL (0.2-1.0); Glucose Level 124 mg/dL (74-106); Potassium 3.9 mmol/L (3.5-5.1); Protein, Total 7.4 g/dL (6.4-8.2); Sodium Level 141 mmol/L (136-145)
--- NOTE | 2021-05-05 21:56 | RAD REPORT ---
EXAM DESCRIPTION: CT - Head Brain Wo Cont - 05/05/2021 9:37 pm CLINICAL HISTORY: SEIZURE COMPARISON: Head Brain Wo Cont dated 02/18/2021; Head Brain Wo Cont dated 02/16/2021 TECHNIQUE: All CT scans are performed using dose optimization technique as appropriate and may inclu de automated exposure control or mA/KV adjustment according to patient size. FINDINGS: No intracranial hemorrhage, hydrocephalus or extra-axial fluid collection.No areas of brai n edema or evidence of midline shift. Remote left medial orbital wall fracture . Sebaceous cyst in th e midline forehead. Mild right maxillary sinus thickening. The calvarium is intact. IMPRESSION: No acute intracranial abnormality.
[2021-05-05] MEDS ORDERED: THIAMINE 200 MG/2 ML INJ ONE (22:22)
[2021-05-05] MEDS ORDERED: NA CHLORIDE 0.9% 1,000 ML ONE (22:22)
[2021-05-05] MEDS ORDERED: FOLIC ACID 5 MG/ML VIAL ONE (22:23)
[2021-05-05] MEDS ORDERED: MULTIVITAMINS 10 ML VIAL (INJ) IV ONE (22:32)
--- NOTE | 2021-05-06 01:25 | EDPHYS ---
Physician Documentation [facility] Name: Walt Velazquez Age: 50 yrs Sex: Male : 1970 Arrival Date: 05/05/2021 Time: 20:48 Bed 16 Private MD: ED Physician Finesse Grajeda HPI: 05/05 23:23 This 50 yrs old Male presents to ER via Unassigned with complaints of passing pm1 out. 23:23 The patient has experienced syncope. Onset: The symptoms/episode began/occurred just pm1 prior to arrival. Context: alcohol consumption. Associated injury: The patient did not suffer any apparent associated injury. Associated signs and symptoms: Pertinent negatives: abdominal pain, chest pain, headache, nausea, shortness of breath, vomiting. Current symptoms: Currently, the patient is not experiencing any symptoms. The patient has not recently seen a physician. Patient with history of alcoholism. Patient is a daily drinker. Patient drinking today and was apparently found outside in the mud. Patient reports passing out and finding himself in the mud. Historical: - Allergies: 05/06 01:10 No Known Allergies; em - PMHx: 01:10 Bipolar II; Hypertensive disorder; Parkinsons; em - Immunization history:: Adult Immunizations unknown. - Social history:: Smoking status: unknown. ROS: 05/05 23:26 Constitutional: Negative for fever, chills, and weight loss, Cardiovascular: Negative pm1 for chest pain, palpitations, and edema, Respiratory: Negative for shortness of breath, cough, wheezing, and pleuritic chest pain, Abdomen/GI: Negative for abdominal pain, nausea, vomiting, diarrhea, and constipation, Back: Negative for injury and pain, MS/Extremity: Negative for injury and deformity, Skin: Negative for injury, rash, and discoloration. Neuro: Positive for syncope, Negative for headache, weakness. All other systems are negative. Exam: 23:26 Abdomen/GI: Exam negative for acute changes, Inspection: abdomen appears normal, pm1 Palpation: abdomen is soft and non-tender, in all quadrants. 23:26 Head/Face: Normocephalic, atraumatic. 23:26 Back: No spinal tenderness. No costovertebral tenderness. Full range of motion. Skin: Warm, dry with normal turgor. Normal color with no rashes, no lesions, and no evidence of cellulitis. MS/ Extremity: Pulses equal, no cyanosis. Neurovascular intact. Full, normal range of motion. 23:26 Constitutional: The patient appears in no acute distress, alert, awake, comfortable, non-diaphoretic, non-toxic, well developed, smells of alcohol, unkempt. 23:26 Eyes: Exam is negative for acute changes, Extraocular movements: no acute changes, Sclera: no acute changes, icterus, is not appreciated. 23:26 Cardiovascular: Rate: 23:26 Respiratory: Exam negative for acute changes, the patient does not display signs of respiratory distress, Respirations: normal, Breath sounds: are clear throughout. 23:26 Abdomen/GI: Exam negative for acute changes, Inspection: abdomen appears normal, Palpation: abdomen is soft and non-tender, in all quadrants. 23:26 Neuro: Exam negative for acute changes, Orientation: is normal, Mentation: is normal, Motor: is normal, moves all fours. Vital Signs: 21:00 BP 115 / 79; Pulse 96; Resp 18; Temp 98.1(O); Pulse Ox 95% on R/A; Pain 0/10; fu 23:37 BP 114 / 67; Pulse 89; Resp 14; Pulse Ox 95% on R/A; Pain 0/10; fu MDM: 20:59 Patient medically screened. pm1 05/06 01:23 Data reviewed: vital signs. Data interpreted: Pulse oximetry: on room air is 95 %. pm1 Interpretation: normal. 01:23 Counseling: I had a detailed discussion with the patient and/or guardian regarding: the pm1 historical points, exam findings, and any diagnostic results supporting the discharge/admit diagnosis, lab results, radiology results, the need for outpatient follow up, a family practitioner, to return to the emergency department if symptoms worsen or persist or if there are any questions or concerns that arise at home. 05/05 20:49 Order name: Acetaminophen [facility] 05/05 20:49 Order name: Basic Metabolic Panel [facility] 05/05 20:49 Order name: CBC with Diff [facility] 05/05 20:49 Order name: ETOH Level [facility] 05/05 20:49 Order name: Hepatic Function [facility] 05/05 20:49 Order name: PT-INR; Complete Time: 22:07 [facility] 05/05 20:49 Order name: Ptt, Activated; Complete Time: 22:07 2 05/05 20:49 Order name: Salicylate; Complete Time: 22:10 2 05/05 20:49 Order name: Acetaminophen Level; Complete Time: 22:07 EDMS 05/05 20:49 Order name: Basic Metabolic Panel; Complete Time: 22:07 EDMS 05/05 20:49 Order name: CBC with Automated Diff; Complete Time: 22:07 EDMS 05/05 20:49 Order name: Alcohol Serum/Plasma; Complete Time: 22:10 EDMS 05/05 20:49 Order name: EKG; Complete Time: 20:49 2 05/05 20:49 Order name: EKG - Nurse/Tech; Complete Time: 21:24 [facility] 05/05 20:49 Order name: IV Saline Lock; Complete Time: 21:24 2 05/05 20:49 Order name: Labs collected and sent; Complete Time: 21:24 [facility] 05/05 20:49 Order name: Suicide Precautions; Complete Time: 23:35 [facility] 05/05 20:49 Order name: Suicide Screening ([place]); Complete Time: 23:35 2 05/05 20:49 Order name: Liver (Hepatic) Function; Complete Time: 22:07 EDMS 05/05 20:54 Order name: CT Head Brain wo Cont; Complete Time: 22:07 pm1 05/05 21:34 Order name: SARS-COV-2 RT PCR; Complete Time: 22:59 EDMS Administered Medications: 05/05 22:35 Drug: Banana Bag - (NS 0.9% 1000 ml, foLIC Acid 1 mg, Thiamine 100 mg, Multivitamin 1 fu amp) Route: IV; Rate: calculated rate; Site: left antecubital; 05/06 03:00 Follow up: IV Status: Completed infusion; IV Intake: 1000ml em Disposition Summary: 05/06/21 01:24 Discharge Ordered Location: Home pm1 Problem: new pm1 Symptoms: have improved pm1 Condition: Stable pm1 Diagnosis - Alcohol abuse pm1 Followup: pm1 - With: Emergency Department - When: As needed - Reason: Worsening of condition Followup: pm1 - With: Private Physician - When: 2 - 3 days - Reason: Recheck today's complaints, Continuance of care, Re-evaluation by your physician Discharge Instructions: - Discharge Summary Sheet pm1 - Alcohol Abuse and Nutrition pm1 - Alcohol Abuse and Dependence Information, Adult pm1 Forms: - Medication Reconciliation Form pm1 - Thank You Letter pm1 - Antibiotic Education pm1 - Prescription Opioid Use pm1 Signatures: Dispatcher [employer] EDKenneth Mai, RN RN Piero Cruz REHAB ASSISTANT REHAB ASSISTANT pm1 Justin Juan RN RN fu [place], My[facility] 2 Corrections: (The following items were deleted from the chart) 05/05 21:34 20:49 CORONAVIRUS+MR.LAB.BRZ ordered. EDLA EDLA
--- NOTE | 2021-05-06 01:25 | ER ---
Nurse's Notes [facility] Name: Walt Velazquez Age: 50 yrs Sex: Male : 1970 Arrival Date: 05/05/2021 Time: 20:48 Bed 16 Private MD: Diagnosis: Alcohol abuse Presentation: 05/05 21:15 Chief complaint: EMS states: Patient wandering in near [facility] with "psychiatric fu episodes" wanting to go to hospital. EMS stated that patient verbalized suicidal ideation but retracted it later. Coronavirus screen:. Ebola Screen: No symptoms or risks identified at this time. Initial Sepsis Screen: Does the patient meet any 2 criteria? No. Patient's initial sepsis screen is negative. Does the patient have a suspected source of infection? No. Patient's initial sepsis screen is negative. Risk Assessment: Do you want to hurt yourself or someone else? Patient reports desire/thoughts of hurting themselves or someone else. Provider notified. Onset of symptoms was May 05, 2021. 21:15 Method Of Arrival: EMS: [facility] fu 21:15 Acuity: LATASHA 3 fu Historical: - Allergies: 05/06 01:10 No Known Allergies; em - PMHx: 01:10 Bipolar II; Hypertensive disorder; Parkinsons; em - Immunization history:: Adult Immunizations unknown. - Social history:: Smoking status: unknown. Screenin/14 23:29 Abuse screen: Denies threats or abuse. Nutritional screening: No deficits noted. fu Tuberculosis screening: No symptoms or risk factors identified. Fall Risk None identified. Assessment: 21:50 General: Appears unkempt, Smells of alcohol. General:. Pain: Denies pain. Neuro: Level fu of Consciousness is awake, alert, obeys commands, confused, Oriented to person, place, Sample Maker are equal bilaterally Moves all extremities. Speech is normal, Facial symmetry appears normal. Respiratory: Respiratory effort is even, Respiratory pattern is regular. Derm: ruptured blister to left big toe and scabs to left leg. 22:00 Reassessment: Patient denies suicidal ideations and thoughts of hurting others. fu 23:00 Reassessment: No changes from previously documented assessment. Patient and/or family fu updated on plan of care and expected duration. Pain level reassessed. Patient is alert, oriented x 3, equal unlabored respirations, skin warm/dry/pink. 23:38 Reassessment: dressing on wound on left big toe done. fu Vital Signs: 21:00 BP 115 / 79; Pulse 96; Resp 18; Temp 98.1(O); Pulse Ox 95% on R/A; Pain 0/10; fu 23:37 BP 114 / 67; Pulse 89; Resp 14; Pulse Ox 95% on R/A; Pain 0/10; fu ED Course: 20:48 Patient arrived in ED. mw2 20:50 Piero Portillo NP is PHCP. pm1 20:50 Finesse Grajeda MD is Attending Physician. pm1 21:00 Justin Juan, ROBERTO is Primary Nurse. fu 21:20 Inserted saline lock: 20 gauge in left antecubital area, using aseptic technique. Blood fu collected. 21:24 Acetaminophen Sent. fu 21:24 Basic Metabolic Panel Sent. fu 21:24 CBC with Diff Sent. fu 21:24 ETOH Level Sent. fu 21:24 Hepatic Function Sent. fu 21:37 CT Head Brain wo Cont In Process Unspecified. EDMS 23:25 No provider procedures requiring assistance completed. fu 23:29 Patient has correct armband on for positive identification. Placed in gown. Bed in low fu position. Call light in reach. Side rails up X2. Pulse ox on. NIBP on. Warm blanket given. 23:34 Triage completed. fu 05/06 03:01 IV discontinued, intact, bleeding controlled, No redness/swelling at site. Pressure em dressing applied. Administered Medications: 05/05 22:35 Drug: Banana Bag - (NS 0.9% 1000 ml, foLIC Acid 1 mg, Thiamine 100 mg, Multivitamin 1 fu amp) Route: IV; Rate: calculated rate; Site: left antecubital; 05/06 03:00 Follow up: IV Status: Completed infusion; IV Intake: 1000ml em Intake: 03:00 IV: 1000ml; Total: 1000ml. em Outcome: 01:24 Discharge ordered by . pm1 03:00 Discharged to home ambulatory. em 03:00 Condition: stable 03:00 Discharge instructions given to patient, Instructed on discharge instructions, follow up and referral plans. Demonstrated understanding of instructions, follow-up care. 03:01 Patient left the ED. em Signatures: Dispatcher [employer] Kenneth Villa, RN Piero Salazar, PROGRAM PROJECT MANAGER PROGRAM PROJECT MANAGER pm1 Justin Juan RN RN fu [place], MyKena mw2
[2021-05-06 03:21] VITALS: TEMP 98.1; O2SAT 95
[2021-05-06 03:23] VITALS: BP 114/67
== END 2021-05-06 03:01 | disposition home or self-care (01) ==
LOC: ER 20:41
DX: F10.10 Alcohol abuse, uncomplicated (principal); Z20.822 Contact with and (suspected) exposure to COVID-19
CPT/HCPCS: 36415; 70450; 80048; 80076; 80320; 80329; 85025; 85610; 85730; 93005; 96365; 96366; 99284; J3411; J7030; U0003

== ENCOUNTER 2021-05-09 02:55 | Emergency (ER) | payer SELFPAY ==
[2021-05-09 03:31] LABS: Urine Blood Negative (Negative); Urine Glucose 1+ (Negative); Urine Protein Negative (Negative); Urine pH 5.5 (5.0-7.0)
[2021-05-09 03:40] LABS: Protime INR 0.88
[2021-05-09] MEDS ORDERED: THIAMINE 200 MG/2 ML INJ ONE (03:42)
[2021-05-09] MEDS ORDERED: ONDANSETRON 4 MG/2 ML VIAL ONE (03:42)
[2021-05-09] MEDS ORDERED: MAGNESIUM SULFATE 1 gm IVPB 1 GM/100 ML BAG IV ONE (03:43)
[2021-05-09] MEDS ORDERED: NA CHLORIDE 0.9% 1,000 ML ONE (03:43)
[2021-05-09 03:46] LABS: Absolute Lymphocytes (CBC) 1.9 K/uL (0.7-4.9); Basophils % 2.1 % (0-1.3); Hematocrit 41.4 % (39.6-49.0); Lymphocytes % 37.6 % (15.3-44.8); MPV 7.2 fL (7.6-11.3); RBC Red Blood Cell Count 4.27 M/uL (4.33-5.43)
[2021-05-09 03:50] LABS: Barbiturates NEGATIVE (NEGATIVE); Benzodiazepines NEGATIVE (NEGATIVE); Cocaine NEGATIVE (NEGATIVE); METHAMPHETAM NEGATIVE (NEGATIVE); Methadone NEGATIVE (NEGATIVE); Opiates NEGATIVE (NEGATIVE); Phencyclidine NEGATIVE (NEGATIVE); THC Cannibis NEGATIVE (NEGATIVE)
[2021-05-09 03:55] LABS: ALT/SGPT 57 U/L (12-78); AST/SGOT 83 U/L (15-37); Albumin 3.4 g/dL (3.4-5.0); Alkaline Phosphatase 155 U/L (45-117); BUN Blood Urea Nitrogen 10 mg/dL (7-18); Bicarbonate 25 mmol/L (21-32); Bilirubin Direct 0.1 mg/dL (0-0.2); Bilirubin Total 0.3 mg/dL (0.2-1.0); Glucose Level 169 mg/dL (74-106); Potassium 3.5 mmol/L (3.5-5.1); Protein, Total 7.7 g/dL (6.4-8.2); Sodium Level 141 mmol/L (136-145)
--- NOTE | 2021-05-09 06:04 | ER ---
Nurse's Notes [facility] Name: Walt Velazquez Age: 50 yrs Sex: Male : 1970 Arrival Date: 05/09/2021 Time: 02:58 Bed 17 Private MD: Diagnosis: Alcohol abuse;Alcohol abuse with intoxication;Alcohol dependence;Fall on same level, unspecified Presentation: 05/09 03:24 Chief complaint: [place] police found pt on side of road and did not want to take df1 him to penitentiary. Coronavirus screen: Vaccine status: Patient reports being unvaccinated. Client denies travel out of the [place] in the last 14 days. At this time, the client does not indicate any symptoms associated with coronavirus-19. Ebola Screen: Patient negative for fever greater than or equal to 101.5 degrees Fahrenheit, and additional compatible Ebola Virus Disease symptoms Patient denies exposure to infectious person. Patient denies travel to an Ebola-affected area in the 21 days before illness onset. Initial Sepsis Screen: Does the patient meet any 2 criteria? No. Patient's initial sepsis screen is negative. Does the patient have a suspected source of infection? No. Patient's initial sepsis screen is negative. Risk Assessment: Do you want to hurt yourself or someone else? Patient reports no desire to harm self or others. 03:24 Method Of Arrival: Law Enforcement: [place] [employer] df1 03:24 Acuity: LATASHA 3 df1 06:32 Onset of symptoms was May 09, 2021. 1 Historical: - Allergies: 03:29 No Known Allergies; df1 - Home Meds: 03:29 None [Active]; df1 - PMHx: 03:29 Bipolar II; Hypertensive disorder; Parkinsons; Alcoholism; df1 - PSHx: 03:29 None; df1 - Immunization history:: Adult Immunizations not up to date, Client reports having NOT received the Covid vaccine. - Social history:: Smoking status: Patient reports the use of cigarette tobacco products, Patient uses alcohol, on a daily basis. patient/guardian reports chronic longstanding heavy alcohol consumption. Screenin:30 Abuse screen: Denies threats or abuse. Nutritional screening: No deficits noted. lc1 Tuberculosis screening: No symptoms or risk factors identified. Fall Risk None identified. Assessment: 03:35 General: Appears unkempt, well nourished, Behavior is calm, Reports he doesn't know how lc1 he got here, he doesn't know where he is. 03:35 Pain: Complains of pain in left and right foot, left ankle Unable to use pain scale. lc1 Patient is disoriented. Neuro: Level of Consciousness is awake, confused, Oriented to person, Glass Sander Belt are equal bilaterally Moves all extremities. Speech is slurred. Cardiovascular: No deficits noted. Respiratory: Respiratory effort is even, unlabored. GI: No signs and/or symptoms were reported involving the gastrointestinal system. : No signs and/or symptoms were reported regarding the genitourinary system. EENT: No signs and/or symptoms were reported regarding the EENT system. Derm: No signs and/or symptoms reported regarding the dermatologic system. Musculoskeletal: Reports pain in left and right foot, left ankle Denies falling. 04:30 Reassessment: No changes from previously documented assessment. Patient and/or family lc1 updated on plan of care and expected duration. Pain level reassessed. pt sleeping, frequent twitching noted, md aware. 05:30 Reassessment: No changes from previously documented assessment. Patient and/or family lc1 updated on plan of care and expected duration. Pain level reassessed. Psych: 06:30 [place] Suicide Severity Screening: In the past month, have you wished you were lc1 or wished you could go to sleep and not wake up? Patient responds "No." "In the past month, have you actually had any thoughts of killing yourself?" Patient responds "no." "In your lifetime, have you ever done anything, started to do anything, or prepared to do anything to end your life?" Patient responds "no.". Subjective: Patient's mood is sad, Delusions are denied, Hallucinations are denied Having thoughts of. Objective: Patient is cooperative, Speech is slurred, Affect is appropriate. Interventions: Removed personal items and placed in bag. Safety Checks: Personal items have been removed. Door is open. Patient uses 24 pack of beer, daily. Commitment: none. Vital Signs: 03:24 BP 119 / 81; Pulse 66; Resp 18; Temp 97.6(O); Pulse Ox 99% on R/A; Weight 63.5 kg; df1 Height 5 ft. 6 in. (167.64 cm); Pain 10/10; 03:30 BP 109 / 75; Pulse 76; Resp 18; Pulse Ox 96% on R/A; lc1 04:30 BP 113 / 74; Pulse 71; Resp 18; Pulse Ox 97% on R/A; lc1 05:30 BP 118 / 63; Pulse 65; Resp 16; Pulse Ox 97% on R/A; lc1 06:25 BP 117 / 80; Pulse 71; Resp 18; Pulse Ox 98% on R/A; lc1 03:24 Body Mass Index 22.60 (63.50 kg, 167.64 cm) df1 ED Course: 02:58 Patient arrived in ED. bp1 03:01 Deandre Mckeon MD is Attending Physician. bridgette 03:11 Nesha Macedo is Primary Nurse. lc1 03:25 Inserted saline lock: 22 gauge in right forearm, using aseptic technique. Blood ds4 collected. 03:29 Triage completed. df1 03:30 No provider procedures requiring assistance completed. lc1 03:30 Pulse ox on. NIBP on. lc1 03:45 Noise minimized. Lights dimmed. Warm blanket given. lc1 04:00 Patient has correct armband on for positive identification. Bed in low position. Call lc1 light in reach. Side rails up X2. 04:05 CT Head C Spine In Process Unspecified. EDMS 05:00 Patient notified of wait time. lc1 06:25 IV discontinued, intact, bleeding controlled, Pressure dressing applied. lc1 Administered Medications: 04:06 Drug: Magnesium Sulfate 1 grams Route: IVPB; Infused Over: 1 hrs; Site: right forearm; lc1 06:08 Follow up: Response: No adverse reaction; IV Status: Completed infusion lc1 04:07 Drug: NS 0.9% 1000 ml Route: IV; Rate: 1 bolus; Site: right forearm; lc1 06:08 Follow up: IV Status: Completed infusion 1 04:07 Drug: Thiamine 100 mg Route: IV; Rate: per protocol; Site: right forearm; lc1 04:18 Follow up: Response: No adverse reaction lc1 06:21 Follow up: IV Status: Completed infusion lc1 04:07 Drug: Zofran (Ondansetron) 4 mg Route: IVP; Site: right forearm; 1 04:18 Follow up: Response: No adverse reaction lc1 Outcome: 06:03 Discharge ordered by . bridgette 06:25 Discharged to home ambulatory. 1 06:25 Condition: stable 06:25 Discharge instructions given to patient, Instructed on discharge instructions, Demonstrated understanding of instructions, medications, Prescriptions given X 1. 06:33 Patient left the ED. lc1 Signatures: Dispatcher [employer] EDMS Deandre Mckeon MD MD cha Calhoun, Nesha lc1 Antonio Oh ds4 Gloria Esteban Dawn df1 Corrections: (The following items were deleted from the chart) 04:06 03:30 Patient has correct armband on for positive identification. Bed in low position. lc1 Call light in reach. Side rails up X2. 1 04:06 03:30 Noise minimized. Lights dimmed. Warm blanket given. lc1 1
--- NOTE | 2021-05-09 06:04 | EDPHYS ---
Physician Documentation [facility] Name: Walt Velazquez Age: 50 yrs Sex: Male : 1970 Arrival Date: 05/09/2021 Time: 02:58 Bed 17 Private MD: ED Physician Deandre Mckeon HPI: 05/09 03:29 This 50 yrs old Male presents to ER via Law Enforcement with complaints of bridgette Psych Problem. 03:29 The patient presents to the emergency department with a history of substance abuse, bridgette Type: beer, 24 bottles per day. Onset: The symptoms/episode began/occurred today, yesterday. Past psychiatric history: Prior diagnosis: depression. Associated signs and symptoms: Pertinent positives; delusions, headache, substance abuse. Severity of symptoms: At their worst the symptoms were mild moderate in the emergency department the symptoms are unchanged. The patient has experienced similar episodes in the past, multiple times. Historical: - Allergies: 03:29 No Known Allergies; df1 - Home Meds: 03:29 None [Active]; df1 - PMHx: 03:29 Bipolar II; Hypertensive disorder; Parkinsons; Alcoholism; df1 - PSHx: 03:29 None; df1 - Immunization history:: Adult Immunizations not up to date, Client reports having NOT received the Covid vaccine. - Social history:: Smoking status: Patient reports the use of cigarette tobacco products, Patient uses alcohol, on a daily basis. patient/guardian reports chronic longstanding heavy alcohol consumption. ROS: 03:30 Constitutional: Negative for fever, chills, and weight loss, Eyes: Negative for injury, bridgette pain, redness, and discharge, ENT: Negative for injury, pain, and discharge, Neck: Negative for injury, pain, and swelling, Cardiovascular: Negative for chest pain, palpitations, and edema, Respiratory: Negative for shortness of breath, cough, wheezing, and pleuritic chest pain, Abdomen/GI: Negative for abdominal pain, nausea, vomiting, diarrhea, and constipation, Back: Negative for injury and pain, : Negative for injury, bleeding, discharge, and swelling, MS/Extremity: Negative for injury and deformity, Skin: Negative for injury, rash, and discoloration, Psych: Negative for depression, anxiety, suicide ideation, homicidal ideation, and hallucinations, Allergy/Immunology: Negative for hives, rash, and allergies, Endocrine: Negative for neck swelling, polydipsia, polyuria, polyphagia, and marked weight changes, Hematologic/Lymphatic: Negative for swollen nodes, abnormal bleeding, and unusual bruising. 03:30 Neuro: Positive for altered mental status. Exam: 03:30 Constitutional: This is a well developed, well nourished patient who is awake, alert, bridgette and in no acute distress. Head/Face: Normocephalic, atraumatic. Eyes: Pupils equal round and reactive to light, extra-ocular motions intact. Lids and lashes normal. Conjunctiva and sclera are non-icteric and not injected. Cornea within normal limits. Periorbital areas with no swelling, redness, or edema. ENT: Nares patent. No nasal discharge, no septal abnormalities noted. Tympanic membranes are normal and external auditory canals are clear. Oropharynx with no redness, swelling, or masses, exudates, or evidence of obstruction, uvula midline. Mucous membranes moist. Neck: Trachea midline, no thyromegaly or masses palpated, and no cervical lymphadenopathy. Supple, full range of motion without nuchal rigidity, or vertebral point tenderness. No Meningismus. Cardiovascular: Regular rate and rhythm with a normal S1 and S2. No gallops, murmurs, or rubs. Normal PMI, no JVD. No pulse deficits. Respiratory: Lungs have equal breath sounds bilaterally, clear to auscultation and percussion. No rales, rhonchi or wheezes noted. No increased work of breathing, no retractions or nasal flaring. Abdomen/GI: Soft, non-tender, with normal bowel sounds. No distension or tympany. No guarding or rebound. No evidence of tenderness throughout. Back: No spinal tenderness. No costovertebral tenderness. Full range of motion. Skin: Warm, dry with normal turgor. Normal color with no rashes, no lesions, and no evidence of cellulitis. MS/ Extremity: Pulses equal, no cyanosis. Neurovascular intact. Full, normal range of motion. Neuro: Awake and alert, GCS 15, oriented to person, place, time, and situation. Cranial nerves II-XII grossly intact. Motor strength 5/5 in all extremities. Sensory grossly intact. Cerebellar exam normal. Normal gait. Psych: Awake, alert, with orientation to person, place and time. Behavior, mood, and affect are within normal limits. 03:30 Chest/axilla: Inspection: normal, Palpation: no acute changes, Axilla: are normal, Lymph nodes: lymphadenopathy is not appreciated. 03:30 Musculoskeletal/extremity: DVT Exam: No signs of deep vein thrombosis. no pain, no swelling, no tenderness, negative Homans' sign noted on exam, no appreciated bluish discoloration, no erythema, no increased warmth. 06:07 ECG was reviewed by the Attending Physician. [facility] Vital Signs: 03:24 BP 119 / 81; Pulse 66; Resp 18; Temp 97.6(O); Pulse Ox 99% on R/A; Weight 63.5 kg; df1 Height 5 ft. 6 in. (167.64 cm); Pain 10/10; 03:30 BP 109 / 75; Pulse 76; Resp 18; Pulse Ox 96% on R/A; lc1 04:30 BP 113 / 74; Pulse 71; Resp 18; Pulse Ox 97% on R/A; lc1 05:30 BP 118 / 63; Pulse 65; Resp 16; Pulse Ox 97% on R/A; lc1 06:25 BP 117 / 80; Pulse 71; Resp 18; Pulse Ox 98% on R/A; lc1 03:24 Body Mass Index 22.60 (63.50 kg, 167.64 cm) df1 MDM: 03:21 Patient medically screened. bridgette 03:32 Differential diagnosis: acute psychotic break, depression. Differential Diagnosis: bridgette alcohol intoxication, hypoglycemia, intracranial bleed, pneumonia. Data reviewed: vital signs, nurses notes, lab test result(s), EKG, radiologic studies, CT scan. Data interpreted: pvc monitor: rate is 66 beats/min. Test interpretation: by ED physician or midlevel provider: ECG, plain radiologic studies. Counseling: I had a detailed discussion with the patient and/or guardian regarding: the historical points, exam findings, and any diagnostic results supporting the discharge/admit diagnosis, lab results, radiology results, the need for outpatient follow up, for definitive care, a family practitioner, a psychiatrist. 05/09 03:01 Order name: Acetaminophen [facility] 05/09 03:01 Order name: Basic Metabolic Panel; Complete Time: 05:02 [facility] 05/09 03:01 Order name: CBC with Diff; Complete Time: 04:14 [facility] 05/09 03:01 Order name: ETOH Level; Complete Time: 05:02 [facility] 05/09 03:01 Order name: Hepatic Function; Complete Time: 05:02 [facility] 05/09 03:01 Order name: PT-INR; Complete Time: 04:14 [facility] 05/09 03:01 Order name: Ptt, Activated; Complete Time: 04:14 [facility] 05/09 03:01 Order name: Salicylate; Complete Time: 05:02 [facility] 05/09 03:01 Order name: Urine Drug Screen; Complete Time: 04:14 [facility] 05/09 03:02 Order name: Acetaminophen Level; Complete Time: 05:02 [facility] 05/09 03:29 Order name: CT Head C Spine [facility] 05/09 03:30 Order name: Urine Dipstick-Ancillary; Complete Time: 03:34 [facility] 05/09 03:01 Order name: EKG; Complete Time: 03:02 [facility] 05/09 03:01 Order name: EKG - Nurse/Tech; Complete Time: 04:30 [facility] 05/09 03:01 Order name: IV Saline Lock; Complete Time: 03:31 [facility] 05/09 03:01 Order name: Labs collected and sent; Complete Time: 03:32 [facility] 05/09 03:01 Order name: Urine Dipstick-Ancillary (obtain specimen); Complete Time: 03:32 [facility] EC:07 Rate is 74 beats/min. Rhythm is regular. QRS [place] is Normal. CO interval is normal. QRS bridgette interval is normal. QT interval is normal. No Q waves. T waves are Normal. No ST changes noted. Clinical impression: Normal ECG and No evidence of ischemia. Interpreted by me. Reviewed by me. Administered Medications: 04:06 Drug: Magnesium Sulfate 1 grams Route: IVPB; Infused Over: 1 hrs; Site: right forearm; 1 06:08 Follow up: Response: No adverse reaction; IV Status: Completed infusion 1 04:07 Drug: NS 0.9% 1000 ml Route: IV; Rate: 1 bolus; Site: right forearm; lc1 06:08 Follow up: IV Status: Completed infusion lc1 04:07 Drug: Thiamine 100 mg Route: IV; Rate: per protocol; Site: right forearm; 1 04:18 Follow up: Response: No adverse reaction 1 06:21 Follow up: IV Status: Completed infusion 1 04:07 Drug: Zofran (Ondansetron) 4 mg Route: IVP; Site: right forearm; lc1 04:18 Follow up: Response: No adverse reaction lc1 Disposition Summary: 05/09/21 06:03 Discharge Ordered Location: Home bridgette Problem: new bridgette Symptoms: have improved bridgette Condition: Stable bridgette Diagnosis - Alcohol abuse bridgette - Alcohol abuse with intoxication bridgette - Alcohol dependence bridgette - Fall on same level, unspecified bridgette Followup: bridgette - With: Private Physician - When: 2 - 3 days - Reason: Recheck today's complaints, Continuance of care, Re-evaluation by your physician Discharge Instructions: - Discharge Summary Sheet bridgette - Alcohol Intoxication bridgette - Alcohol Use Disorder bridgette - Alcohol Intoxication, [id number] bridgette - Alcohol Abuse and Nutrition bridgette Forms: - Medication Reconciliation Form bridgette - Thank You Letter bridgette - Antibiotic Education rbidgette - Prescription Opioid Use bridgette Prescriptions: - Zofran 4 mg Oral Tablet - take 1 tablet by ORAL route every 12 hours As needed; 14 tablet; Refills: 0, bridgette Product Selection Permitted Signatures: Dispatcher [employer] EDMS Deandre Mckeon MD MD cha Calhoun, Lisa lc1 Harriet Green df1 Corrections: (The following items were deleted from the chart) 04:19 03:01 Suicide Screening ([place]) ordered. bridgette 1
[2021-05-09 06:41] VITALS: TEMP 97.6
[2021-05-09 06:48] VITALS: BP 117/80; O2SAT 98
--- NOTE | 2021-05-09 10:47 | RAD REPORT ---
EXAM DESCRIPTION: CT Head and Cervical Spine Without Intravenous Contrast CLINICAL HISTORY: The patient is 50 years old and is Male; ams;Pain TECHNIQUE: Axial computed tomography images of the head/brain and cervical spine without intravenous contrast. Sagittal and coronal reformatted images were created and reviewed. This CT exam was pe rformed using one or more of the following dose reduction techniques: automated exposure control, a djustment of the mA and/or kV according to patient size, and/or use of iterative reconstruction techn ique. COMPARISON: April 29, 2021. FINDINGS: Brain: Unremarkable. No hemorrhage. No significant white matter disease. No edema. Ventricles: Unremarkable. No ventriculomegaly. Skull: Anterior longitudinal ligament calcification with multilevel bridging osteophytes and diff use idiopathic skeletal hyperostosis. No acute fracture. Sinuses: Unremarkable as visualized. No acute sinusitis. Mastoid air cells: Unremarkable as visualized. No mastoid effusion. Vertebrae: No acute cervical spine fracture visualized. Lateral alignment is maintained. Hypertrophic degenerative facet arthropathy on the left at C 4-5. Discs/spinal canal/neural foramina: Degenerative disc disease C5-6 and C6-7. No spinal canal stenosis. Soft tissues: Unremarkable. Pleural space: No apical pneumothorax. IMPRESSION: 1. No acute intracranial findings. No hemorrhage. 2. No acute cervical spine fracture visualized. 3. Chronic cervical spine findings as above. Electronically signed by: Elisa Linda MD 05/09/2021 5:01 AM SANITATION SUPERVISOR Due to temporary technical issues with the PACS/Fluency reporting system, reports are being signed by the in house radiologists without review as a courtesy to insure prompt reporting. The interpreting radiologist is fully responsible for the content of the report.
== END 2021-05-09 06:33 | disposition home or self-care (01) ==
LOC: ER 02:55
DX: F10.229 Alcohol dependence with intoxication, unspecified (principal); W18.30XA Fall on same level, unspecified, initial encounter; Z72.0 Tobacco use
CPT/HCPCS: 36415; 70450; 72125; 80048; 80076; 80307; 80320; 80329; 81003; 85025; 85610; 85730; 93005; 96365; 96375; 99284; J2405; J3411; J3475; J7030

== ENCOUNTER 2021-09-27 02:57 | Emergency (ER) | payer SELFPAY ==
--- OUTSIDE RECORDS SUMMARY | 2021-09-27 03:01 | XMS REPORT | Continuity of Care Document ---
:1970 Author Organization [facility] t Address [address] [place] [address] Care Team Providers Name Role Phone Pcp-None Primary Care Physician Unavailable Melanie Attending Clinician Unavailable Problems This patient has no known problems. Allergies, Adverse Reactions, Alerts This patient has no known allergies or adverse reactions. Medications This patient has no known medications. Procedures This patient has no known procedures. Results Test Description Test Time Test Comments Results Result [facility] e Comments CT head/brain wo con [facility] [address] [place] [address] Patient Name: Walt Velazquez Medical Record#: [id number] Address: Homeless City/State/Zip: [place] [address]: Vinnie Navarro MD Insurance: Self Pay /Age/Sex: 1970/50/M Admit/Reg Date: 09/17/[address]: Vinnie Navarro MD Location: [facility]/ PCP: Pcp-Md KERWIN Stiles Date of Service: 09/17/21 Order (s): CT head/brain wo con CPT Code: 95698 Report Number: [id number] Reason for Exam: Altered mental status Location H 31 CT SCAN OF THE HEAD WITHOUT CONTRAST CLINICAL HISTORY: Altered mental status TECHNIQUE: Helical CT was performed from the skull base to the vertex without IV contrast and provided at 5 mm slice thickness. Coronal and sagittal reconstruction provided. Axial images provided in bone windows as well. One or more the following dose reduction techniques is utilized: Use of iterative reconstruction, automated exposure control, adjustment of the mAs and Kv for the patient's weight. DLP 822.2mGy-cm. FINDINGS: There is no CT evidence of acute infarct. No intra or extra-axial hemorrhage or fluid collections. No midline shift or mass effect. Posterior fossa contents are intact. There is mild generalized parenchymal volume loss with compensatory widening of the ventricular system. Og-white differentiation is maintained. The basal cisterns are preserved. Visualized orbits, paranasal sinus and mastoid air spaces appear within normal limits. Calvarium is intact. There is a rounded subcutaneous lesion at the midline frontal region, measuring 1 cm. Visual inspection. IMPRESSION: 1. No acute intracranial findings. 2. Incidental note of rounded subcutaneous lesion at the midline frontal region (forehead), measuring 1 cm. Visual inspection. Electronically signed by: Karen Jay MD 09/17/2021 6:42 PM CDT Dictated By: Karen Sanders MD 09/17/211824 Signed By: Karen Sanders MD 09/17/211824 TD/TT: 09/17/211824 Tech: ES135 cc: JOSEE; GENESIS* Vinnie Navarro MD; Pcp-Md KERWIN Stiles
[2021-09-27] MEDS ORDERED: THIAMINE HCL 100 MG TABLET ONE (03:24)
[2021-09-27] MEDS ORDERED: Ringers Lactate 1,000 ML IV ONE (03:24)
[2021-09-27 03:32] LABS: Absolute Lymphocytes (CBC) 1.7 K/uL (0.7-4.9); Hematocrit 42.3 % (39.6-49.0); Lymphocytes % 16.3 % (15.3-44.8); MPV 6.6 fL (7.6-11.3); RBC Red Blood Cell Count 4.43 M/uL (4.33-5.43)
[2021-09-27 03:40] LABS: BUN Blood Urea Nitrogen 11 mg/dL (7-18); Bicarbonate 27 mmol/L (21-32); Glucose Level 196 mg/dL (74-106); Potassium 3.7 mmol/L (3.5-5.1); Sodium Level 142 mmol/L (136-145)
--- NOTE | 2021-09-27 04:43 | ER ---
Nurse's Notes [facility] Name: Walt Velazquez Age: 50 yrs Sex: Male : 1970 Arrival Date: 09/27/2021 Time: 03:05 Bed 17 Private MD: Diagnosis: Other seizures;Alcohol abuse with intoxication Presentation: 09/27 03:05 Chief complaint: EMS states: pt picked up at [facility], pt stating he drank a beer from [facility] a stranger and last thing he remembers is it being day light and then being at [facility] when it was dark. states he may have had a seizure because he thinks he bit his tongue. Coronavirus screen: At this time, the client does not indicate any symptoms associated with coronavirus-19. Ebola Screen: No symptoms or risks identified at this time. Initial Sepsis Screen: Does the patient meet any 2 criteria? HR > 90 bpm. No. Patient's initial sepsis screen is negative. Does the patient have a suspected source of infection? No. Patient's initial sepsis screen is negative. Risk Assessment: Do you want to hurt yourself or someone else? Patient reports no desire to harm self or others. Onset of symptoms was September 27, 2021. 03:05 Method Of Arrival: EMS: [facility] 03:05 Acuity: LATASHA 3 sm5 Triage Assessment: 03:08 General: Appears unkempt, Behavior is cooperative. Pain: Complains of pain in right 5 leg, left leg and tongue. Neuro: No deficits noted. Level of Consciousness is awake, alert, obeys commands, Oriented to person, place, time, situation. Cardiovascular: No deficits noted. Capillary refill < 3 seconds Patient's skin is warm and dry. Respiratory: No deficits noted. Airway is patent Trachea midline Respiratory effort is even, unlabored. Historical: - Allergies: 03:07 No Known Allergies; sm5 - PMHx: 03:07 Alcoholism; Bipolar II; Hypertensive disorder; Parkinsons; Seizure; sm5 - Immunization history:: Client reports having NOT received the Covid vaccine. - Social history:: Smoking status: Patient reports the use of cigarette tobacco products, smokes one pack cigarettes per day. Patient uses alcohol, on a daily basis. Screenin:08 Abuse screen: Denies threats or abuse. Denies injuries from another. Nutritional sm5 screening: No deficits noted. Tuberculosis screening: No symptoms or risk factors identified. Fall Risk Secondary diagnosis (15 points) seizures, IV access (20 points). Total Cadena Fall Scale indicates Low Risk Score (25-44 pts). Fall prevention measures have been instituted. Side Rails Up X 2 Placed close to Nursing Station Frequent Obs/Assesments occuring. Assessment: 03:27 Reassessment: see triage. ke1 03:31 General: Appears unkempt, Behavior is cooperative, Smells of alcohol. ke1 03:42 General: Reports being alcoholic and has been drinking couple beer. ke1 03:43 Neuro: Level of Consciousness is awake, alert, Oriented to person, place, situation. ke1 04:16 Reassessment: No changes from previously documented assessment. ke1 Vital Signs: 03:05 BP 118 / 71; Pulse 102; Resp 15; Temp 97.8(O); Pulse Ox 96% on R/A; Weight 63.5 kg; 5 Height 5 ft. 3 in. (160.02 cm); 04:16 BP 122 / 75; Pulse 91; Resp 16; Pulse Ox 96% on R/A; ke1 03:05 Body Mass Index 24.80 (63.50 kg, 160.02 cm) 5 ED Course: 03:05 Patient arrived in ED. sm5 03:05 Jovanny Wen DO is Attending Physician. ms3 03:07 Triage completed. 5 03:08 Arm band placed on right wrist. sm5 03:09 Patient has correct armband on for positive identification. Placed in gown. Bed in low sm5 position. Call light in reach. Side rails up X2. Seizure precautions initiated. pvc monitor on. Pulse ox on. NIBP on. 03:14 Inserted saline lock: 20 gauge in right forearm, using aseptic technique. ke1 03:18 Eric Mcclain, ROBERTO is Primary Nurse. ke1 04:41 Manav Paz MD is Referral Physician. ms3 05:13 No provider procedures requiring assistance completed. IV discontinued. ke1 Administered Medications: 03:25 Drug: Lactated Ringers Solution 1000 ml Route: IV; Rate: 1 bolus; Site: right forearm; ke1 05:01 Follow up: IV Status: Completed infusion ke1 03:25 Drug: Thiamine 100 mg Route: PO; ke1 05:01 Follow up: Response: No adverse reaction ke1 04:46 Drug: Keppra (levETIRAcetam) 500 mg Route: PO; ke1 05:00 Follow up: Response: No adverse reaction ke1 05:00 Drug: Tylenol 1000 mg Route: PO; ke1 05:13 Follow up: Response: Medication administered at discharge. ke1 Outcome: 05:13 Discharged to home via wheelchair, [facility]. Taxi ride provided ke1 05:25 Condition: stable ke1 05:25 Discharge instructions given to patient. 05:25 Patient left the ED. ke1 Signatures: Jovanny Wen DO DO ms3 Leonora Mendoza RN RN sm5 Eric Mcclain RN RN ke1 Corrections: (The following items were deleted from the chart) 03:26 03:14 Inserted saline lock: 20 gauge in right antecubital area, using aseptic ke1 technique. ke1 05:24 05:13 Discharged to [facility] ke1 05:25 04:42 Discharge ordered by MD. kendall ke1
--- NOTE | 2021-09-27 04:43 | EDPHYS ---
Physician Documentation [facility] Name: Walt Velazquez Age: 50 yrs Sex: Male : 1970 Arrival Date: 09/27/2021 Time: 03:05 Bed 17 Private MD: ED Physician Jovanny Wen HPI: 09/27 03:07 This 50 yrs old Male presents to ER via EMS with complaints of seizure. ms3 03:07 50-year-old male with past medical history of seizures and alcoholism presents via [facility] for seizure. Patient seizure was not witnessed. Patient states he was drinking with someone and awoke with his legs being sore and his tongue hurting. Patient states that this occurs when he has seizures. Patient denies nausea, vomiting, chest pain, shortness of breath. Patient denies alleviating or inciting factors.. 03:07 The patient presents after having a possible seizure episode. Character of seizure(s): ms3 Loss of consciousness: the patient experienced loss of consciousness, Motor activity: the motor activity is unknown, Incontinence: none. Seizure onset: today. Seizure Hx: it is unknown whether or not the patient has a previous seizure history. EMS care: none. Historical: - Allergies: 03:07 No Known Allergies; sm5 - PMHx: 03:07 Alcoholism; Bipolar II; Hypertensive disorder; Parkinsons; Seizure; sm5 - Immunization history:: Client reports having NOT received the Covid vaccine. - Social history:: Smoking status: Patient reports the use of cigarette tobacco products, smokes one pack cigarettes per day. Patient uses alcohol, on a daily basis. ROS: 03:07 Constitutional: Negative for fever, and chills. Eyes: Negative for injury, pain, ms3 redness, and discharge, ENT: Negative for injury, pain, and discharge, Neck: Negative for injury, pain, and swelling, Cardiovascular: Negative for chest pain, and palpitations. Respiratory: Negative for shortness of breath, cough, wheezing, and pleuritic chest pain, Abdomen/GI: Negative for abdominal pain, nausea, vomiting, diarrhea, and constipation, MS/Extremity: Negative for injury and deformity, Skin: Negative for injury, rash, and discoloration. 03:07 Neuro: Positive for seizure activity. 03:07 All other systems are negative. Exam: 03:07 Constitutional: This is a well developed, well nourished patient who is awake, alert, ms3 and in no acute distress. Head/Face: Normocephalic, atraumatic. Neck: Trachea midline, no cervical lymphadenopathy. Supple, full range of motion without nuchal rigidity, or vertebral point tenderness. No Meningismus. Chest/axilla: Normal chest wall appearance and motion. Nontender with no deformity. Cardiovascular: Regular rate and rhythm with a normal S1 and S2. No gallops, murmurs, or rubs. Normal PMI, no JVD. No pulse deficits. Respiratory: Lungs have equal breath sounds bilaterally, clear to auscultation and percussion. No rales, rhonchi or wheezes noted. No increased work of breathing, no retractions or nasal flaring. Abdomen/GI: Soft, non-tender, with normal bowel sounds. No distension or tympany. No guarding or rebound. No evidence of tenderness throughout. Skin: Warm, dry with normal turgor. Normal color with no rashes, no lesions, and no evidence of cellulitis. MS/ Extremity: Pulses equal, no cyanosis. Neurovascular intact. Full, normal range of motion. Neuro: Awake and alert, GCS 15, oriented to person, place, time, and situation. Cranial nerves II-XII grossly intact. Motor strength 5/5 in all extremities. Sensory grossly intact. Cerebellar exam normal. Normal gait. 03:07 Eyes: Conjunctiva: injected, bilaterally. Vital Signs: 03:05 BP 118 / 71; Pulse 102; Resp 15; Temp 97.8(O); Pulse Ox 96% on R/A; Weight 63.5 kg; 5 Height 5 ft. 3 in. (160.02 cm); 04:16 BP 122 / 75; Pulse 91; Resp 16; Pulse Ox 96% on R/A; ke1 03:05 Body Mass Index 24.80 (63.50 kg, 160.02 cm) [facility] MDM: 03:05 Patient medically screened. ms3 03:10 Differential diagnosis: seizure, Alcohol intoxication vs electrolyte abnormality. ms3 04:43 Data reviewed: vital signs, nurses notes, lab test result(s). Data interpreted: Cardiac ms3 monitor: rate is 91 beats/min, rhythm is normal sinus rhythm, with no ectopy, Interpretation: normal rate, normal rhythm. Counseling: I had a detailed discussion with the patient and/or guardian regarding: the historical points, exam findings, and any diagnostic results supporting the discharge/admit diagnosis, lab results, the need for outpatient follow up, to return to the emergency department if symptoms worsen or persist or if there are any questions or concerns that arise at home. ED course: Discussed labs and plan with patient. Patient to follow-up with Dr. Mckeon in 1 to 2 days. Patient understands and agrees with plan. All questions were answered. Return precautions discussed include worsening symptoms, or any other concerns. On reevaluation patient is alert and oriented x4, no apparent distress, nontoxic-appearing.. 09/27 03:11 Order name: CBC with Diff; Complete Time: 03:42 ms3 09/27 03:11 Order name: BMP; Complete Time: 03:42 ms3 Administered Medications: 03:25 Drug: Lactated Ringers Solution 1000 ml Route: IV; Rate: 1 bolus; Site: right forearm; ke1 05:01 Follow up: IV Status: Completed infusion ke1 03:25 Drug: Thiamine 100 mg Route: PO; ke1 05:01 Follow up: Response: No adverse reaction ke1 04:46 Drug: Keppra (levETIRAcetam) 500 mg Route: PO; ke1 05:00 Follow up: Response: No adverse reaction ke1 05:00 Drug: Tylenol 1000 mg Route: PO; ke1 05:13 Follow up: Response: Medication administered at discharge. ke1 Disposition Summary: 09/27/21 04:42 Discharge Ordered Location: Home ms3 Condition: Stable ms3 Diagnosis - Other seizures ms3 - Alcohol abuse with intoxication ms3 Followup: ms3 - With: Manav Paz MD - When: 1 - 2 days - Reason: Recheck today's complaints Discharge Instructions: - Discharge Summary Sheet ms3 - Seizure, Adult ms3 - Alcohol Intoxication, [id number] ms3 Forms: - Medication Reconciliation Form ms3 - Thank You Letter ms3 - Antibiotic Education ms3 - Prescription Opioid Use ms3 Prescriptions: - Keppra 500 mg Oral Tablet - take 1 tablet by ORAL route every 12 hours; 20 tablet; Refills: 0, Product ms3 Selection Permitted Signatures: [facility] EDJovanny Kovacs DO DO ms3 Leonora Mendoza RN RN sm5 Eric Mcclain, RN RN ke1
[2021-09-27] MEDS ORDERED: levETIRAcetam 500 MG TAB ONE (04:51)
[2021-09-27] MEDS ORDERED: ACETAMINOPHEN 500 MG TAB ONE (05:00)
[2021-09-27 11:21] VITALS: TEMP 97.8; O2SAT 96
[2021-09-27 11:23] VITALS: BP 122/75
== END 2021-09-27 05:25 | disposition home or self-care (01) ==
LOC: ER 02:57
DX: F10.229 Alcohol dependence with intoxication, unspecified (principal); G20 Parkinson's disease; I10 Essential (primary) hypertension; F17.210 Nicotine dependence, cigarettes, uncomplicated
CPT/HCPCS: 36415; 80048; 85025; 96360; 96361; 99284; J7120

== ENCOUNTER 2021-11-01 12:44 | Emergency (ER) | payer SELFPAY ==
--- OUTSIDE RECORDS SUMMARY | 2021-11-01 12:47 | XMS REPORT | Continuity of Care Document ---
:1970 Author Organization [facility] t Address [address] [place] [address] Care Team Providers Name Role Phone Pcp-None Primary Care Physician Unavailable Melanie Attending Clinician Unavailable Problems This patient has no known problems. Allergies, Adverse Reactions, Alerts This patient has no known allergies or adverse reactions. Medications This patient has no known medications. Procedures This patient has no known procedures. Results Test Description Test Time Test Comments Results Result [facility] e Comments CT head/brain wo con [facility] [address] [place] [address] Patient Name: Walt Velazquez Medical Record#: [id number] Address: Homeless City/State/Zip: [place] [address]: Vinnie Navarro MD Insurance: Self Pay /Age/Sex: 1970/50/M Admit/Reg Date: 09/17/[address]: Vinnie Navarro MD Location: [facility]/ PCP: Pcp-Md KERWIN Stiles Date of Service: 09/17/21 Order (s): CT head/brain wo con CPT Code: 77814 Report Number: [id number] Reason for Exam: Altered mental status Location [...]
--- NOTE | 2021-11-01 14:07 | EDPHYS ---
Physician Documentation [facility] Name: Walt Velazquez Age: 50 yrs Sex: Male : 1970 Arrival Date: 11/01/2021 Time: 13:16 Bed Waiting Private MD: ED Physician Rudy Chavez HPI: 11/01 13:45 This 50 yrs old Male presents to ER via Ambulatory with complaints of Laceration To Arm.cp 13:45 The patient has a laceration occurred outdoors. The laceration(s) is(are) located on cp the right forearm. Onset: The symptoms/episode began/occurred today. Associated signs and symptoms: The patient has no apparent associated signs or symptoms. Historical: - Allergies: 13:30 No Known Allergies; vg1 - Home Meds: 13:30 Trazodone Oral [Active]; Prozac Oral [Active]; vg1 - PMHx: 13:30 Alcoholism; Bipolar II; Hypertensive disorder; Parkinsons; Seizure; vg1 - Immunization history:: Client reports having NOT received the Covid vaccine. - Social history:: Smoking status: Patient reports the use of cigarette tobacco products, smokes one pack cigarettes per day. Patient uses alcohol, on a daily basis. street drugs, marijuana, IV drugs, cocaine, amphetamines. ROS: 13:46 Skin: Positive for laceration(s), of the right forearm. cp 13:46 Constitutional: Negative for fever. cp 13:46 Cardiovascular: Negative for chest pain. 13:46 Respiratory: Negative for cough, shortness of breath, wheezing. 13:46 Abdomen/GI: Negative for abdominal pain. 13:46 All other systems are negative. Exam: 13:48 Constitutional: The patient appears in no acute distress, alert, awake, non-toxic, well cp developed, well nourished. 13:48 Skin: injury, laceration(s), the wound is approximately 4 cm(s), of the right mid cp forearm, that can be described as clean, no foreign body, irregular, without bleeding. Vital Signs: 13:22 BP 139 / 93; Pulse 90; Resp 16; Temp 98.2; Pulse Ox 98% on R/A; Weight 58.97 kg; Height vg1 5 ft. 3 in. (160.02 cm); Pain 0/10; 13:22 Body Mass Index 23.03 (58.97 kg, 160.02 cm) vg1 MDM: 11/01 13:41 Order name: Dressing - Wound cp 11/01 13:41 Order name: Gloves, Sterile cp 11/01 13:41 Order name: Setup Suture Tray cp 11/01 13:41 Order name: Wound Care cp Administered Medications: No medications were administered Disposition: 14:42 Co-signature as Attending Physician, Rudy Chavez MD I agree with the assessment and kdr plan of care. Disposition Summary: 11/01/21 14:06 Eloped Disposition: post triage evaluation and consult vg1 Problem: new vg1 Reason: unknown vg1 Condition: Fair vg1 Signatures: Rudy Chavez MD MD kdr Deandre Sharma PA PA cp Garcia, Victoria, RN RN vg1
--- NOTE | 2021-11-01 14:07 | ER ---
Nurse's Notes [facility] Name: Walt Velazquez Age: 50 yrs Sex: Male : 1970 Arrival Date: 11/01/2021 Time: 13:16 Bed Waiting Private MD: Diagnosis: Presentation: 11/01 13:22 Chief complaint: Patient states: "I cant remember what happened I take so many psych vg1 meds so sometimes I blank out" Pt appears to have a laceration on Right forearm. Coronavirus screen: Vaccine status: Patient reports being unvaccinated. Client denies travel out of the [place] in the last 14 days. Ebola Screen: Patient denies exposure to infectious person. Patient denies travel to an Ebola-affected area in the 21 days before illness onset. Complicating Factors: There are no complicating factors for this patient. Initial Sepsis Screen: Does the patient meet any 2 criteria? No. Patient's initial sepsis screen is negative. Does the patient have a suspected source of infection? No. Patient's initial sepsis screen is negative. Risk Assessment: Do you want to hurt yourself or someone else? Patient reports no desire to harm self or others. Onset of symptoms was November 01, 2021. 13:22 Method Of Arrival: Ambulatory vg1 13:22 Acuity: LATASHA 4 vg1 Triage Assessment: 13:30 General: Appears comfortable, unkempt, Behavior is cooperative, anxious. Injury vg1 Description: Laceration sustained to palmar aspect of right forearm is not bleeding. Historical: - Allergies: 13:30 No Known Allergies; vg1 - Home Meds: 13:30 Trazodone Oral [Active]; Prozac Oral [Active]; vg1 - PMHx: 13:30 Alcoholism; Bipolar II; Hypertensive disorder; Parkinsons; Seizure; vg1 - Immunization history:: Client reports having NOT received the Covid vaccine. - Social history:: Smoking status: Patient reports the use of cigarette tobacco products, smokes one pack cigarettes per day. Patient uses alcohol, on a daily basis. street drugs, marijuana, IV drugs, cocaine, amphetamines. Vital Signs: 13:22 BP 139 / 93; Pulse 90; Resp 16; Temp 98.2; Pulse Ox 98% on R/A; Weight 58.97 kg; Height vg1 5 ft. 3 in. (160.02 cm); Pain 0/10; 13:22 Body Mass Index 23.03 (58.97 kg, 160.02 cm) vg1 ED Course: 13:16 Patient arrived in ED. as 13:22 Deandre Sharma PA is PHCP. cp 13:22 Rudy Chavez MD is Attending Physician. cp 13:29 Triage completed. vg1 13:30 Arm band placed on. vg1 Administered Medications: No medications were administered Outcome: 14:07 Patient left the ED. vg1 Signatures: Shanta Mortensen as Deandre Sharma PA PA Melyssa Floyd, RN RN vg1
[2021-11-01 16:32] VITALS: BP 139/93; TEMP 98.2; O2SAT 98
== END 2021-11-01 14:07 | disposition left against medical advice (07) ==
LOC: ER 12:44
DX: S51.811A Laceration without foreign body of right forearm, initial encounter (principal); F10.20 Alcohol dependence, uncomplicated; F31.81 Bipolar II disorder; G20 Parkinson's disease; I10 Essential (primary) hypertension; F17.210 Nicotine dependence, cigarettes, uncomplicated
CPT/HCPCS: 99281

== ENCOUNTER 2021-11-01 18:52 | Emergency (ER) | payer SELFPAY ==
[2011-10-24 19:41] VITALS: BP 138/81
--- OUTSIDE RECORDS SUMMARY | 2021-11-01 18:54 | XMS REPORT | Continuity of Care Document ---
:1970 Author Organization [facility] t Address [address] [place] [address] Care Team Providers Name Role Phone Pcp-None Primary Care Physician Unavailable Melanie Attending Clinician Unavailable Problems This patient has no known problems. Allergies, Adverse Reactions, Alerts This patient has no known allergies or adverse reactions. Medications This patient has no known medications. Procedures This patient has no known procedures. Results Test Description Test Time Test Comments Results Result [facility] e Comments CT head/brain wo con [facility] [address] [place] [address] Patient Name: Walt Velazquez Medical Record#: [id number] Address: Homeless City/State/Zip: [place] [address]: Vinnie Navarro MD Insurance: Self Pay /Age/Sex: 1970/50/M Admit/Reg Date: 09/17/[address]: Vinnie Navarro MD Location: [facility]/ PCP: Pcp-Md KERWIN Stiles Date of Service: 09/17/21 Order (s): CT head/brain wo con CPT Code: 12242 Report Number: [id number] Reason for Exam: Altered mental status Location [...]
[2021-11-01] MEDS ORDERED: LIDOCAINE 1% MPF 5 ML VIAL ONE ×2 (20:31→20:33)
[2021-11-01] MEDS ORDERED: LIDOCAINE 1% W/EPI 1:100,000 MDV 20 ML VIAL ONE ×2 (20:32→20:37)
--- NOTE | 2021-11-01 20:57 | EDPHYS ---
Physician Documentation [facility] Name: Walt Velazquez Age: 50 yrs Sex: Male : 1970 Arrival Date: 11/01/2021 Time: 18:56 Bed 9 Private MD: ED Physician Jovanny Wen HPI: 11/01 20:00 This 50 yrs old Male presents to ER via Ambulatory with complaints of Arm Pain. cp 20:00 The patient or guardian complains of injury, pain, that is acute. The complaints affect cp the right forearm. 20:00 Context: patient reports he is unsure how laceration occurred to right forearm. cp Treatment prior to arrival includes: clean dressing covering wound. Associated signs and symptoms: The patient has no apparent associated signs or symptoms. Patient was seen earlier today by myself and left ED prior to suturing close laceration. Historical: - Allergies: 20:21 No Known Allergies; vc1 - Home Meds: 20:21 Prozac Oral [Active]; Trazodone Oral [Active]; vc1 - PMHx: 20:21 Alcoholism; Bipolar II; Hypertensive disorder; Parkinsons; Seizure; vc1 - Immunization history:: Adult Immunizations not up to date, Client reports having NOT received the Covid vaccine. - Social history:: Smoking status: Patient reports the use of cigarette tobacco products, smokes one pack cigarettes per day. Patient uses alcohol, on a daily basis. street drugs, marijuana, Methamphetamine (Meth) IV drugs. ROS: 20:05 MS/extremity: Positive for laceration, pain, of the right forearm, Negative for cp decreased range of motion, deformity. 20:05 Constitutional: Negative for chills, fever. cp 20:05 Cardiovascular: Negative for chest pain. 20:05 Respiratory: Negative for cough, shortness of breath, wheezing. 20:05 Abdomen/GI: Negative for abdominal pain, vomiting, diarrhea, constipation. 20:05 Neuro: Negative for altered mental status, dizziness, headache, weakness. 20:05 All other systems are negative. Exam: 20:10 Head/Face: Normocephalic, atraumatic. cp 20:10 Constitutional: The patient appears in no acute distress, alert, awake, non-toxic, well developed, well nourished. 20:10 Neck: ROM/movement: is normal, is supple, without pain, no range of motions limitations. 20:10 Chest/axilla: Inspection: normal. 20:10 Respiratory: the patient does not display signs of respiratory distress, Respirations: normal, no use of accessory muscles, no retractions, labored breathing, is not present. 20:10 Abdomen/GI: Exam negative for discomfort, distension, guarding, Inspection: abdomen appears normal. 20:10 Musculoskeletal/extremity: Extremities: grossly normal except: noted in the right forearm: laceration, pain, There is no evidence of decreased ROM, deformity, ROM: full active range of motion, in the right shoulder and right elbow and right wrist, Pulses: noted to be 2+ in the right radial artery, the right arm Sensation intact. 20:10 Neuro: Orientation: to person, place \\T\\ time. Mentation: is normal, Gait: is steady, at a normal pace, without difficulty. Vital Signs: 21:00 tw5 21:00 "I dont need that done."' tw5 MDM: 20:05 Patient medically screened. cp 20:55 Test interpretation: by ED physician or midlevel provider: xrays of right forearm cp negative for fracture. 20:55 Data reviewed: vital signs, nurses notes, radiologic studies, plain films. cp 20:55 Counseling: I had a detailed discussion with the patient and/or guardian regarding: the cp historical points, exam findings, and any diagnostic results supporting the discharge/admit diagnosis, radiology results. Refusal of service: The patient/guardian displays adequate decision making capability and despite a detailed discussion of alternatives, benefits, risks, and consequences refuses: sutures to close wound at this time. Patient requesting discharge to home. Patient understands that if wound is not sutured at this time, that it will not be sutured. 11/01 19:52 Order name: XRAY Forearm RIGHT cp Administered Medications: 20:19 Drug: Ibuprofen 800 mg Route: PO; vc1 20:56 Not Given (Patient Refused): Lidocaine-Epinephrine -1%: (1:100,000) 10 ml 20 ml tw5 Infiltration once; to bedside Disposition: 11/02 05:02 Co-signature as Attending Physician, Jovanny Wen DO I was immediately available on-site ms3 in the Emergency Department for consultation in the care of the patient.. Disposition Summary: 11/01/21 20:56 Discharge Ordered Location: Home cp Problem: new cp Symptoms: have improved cp Condition: Stable cp Diagnosis - Laceration without foreign body of right forearm cp Followup: cp - With: Private Physician - When: 1 - 2 days - Reason: Worsening of condition Discharge Instructions: - Discharge Summary Sheet cp - How to Change Your Wound Dressing cp - Laceration Care, Adult cp - Nonsutured Laceration Care cp Forms: - Medication Reconciliation Form cp - Thank You Letter cp - Antibiotic Education cp - Prescription Opioid Use cp Prescriptions: - Cephalexin 500 mg Oral Capsule - take 1 capsule by ORAL route every 8 hours for 10 days; 30 capsule; Refills: 0, cp Product Selection Permitted - Ibuprofen 800 mg Oral Tablet - take 1 tablet by ORAL route every 8 hours As needed take with food; 30 tablet; cp Refills: 0, Product Selection Permitted Signatures: Dispatcher [employer] EDMS Deandre Sharma PA PA cp Sims, Marcus, DO ms3 Niecy Roberto RN RN vc1 Maria L Keyes tw5 Corrections: (The following items were deleted from the chart) 11/01 20:55 20:19 Dressing - Wound ordered. cp tw5 20:55 20:19 Sterile Gloves ordered. cp tw5 20:55 20:19 Sutures, Prolene ordered. cp tw5 20:55 20:19 Setup Suture Tray ordered. cp tw5 :10/31 20:10 Constitutional: The patient appears in no acute distress, alert, awake, cp non-toxic, well developed, well nourished, cp 11/01 23:10/31 20:10 Head/Face: Normocephalic, atraumatic. cp cp 11/01 23:10/31 20:10 Neck: ROM/movement: is normal, is supple, without pain, no range of motions cp limitations, cp 11/01 23:39 10/31 20:10 Chest/axilla: Inspection: normal, cp cp 11/01 22:10/31 20:10 Respiratory: the patient does not display signs of respiratory distress, cp Respirations: normal, no use of accessory muscles, no retractions, labored breathing, is not present, cp 11/01 22:10/31 20:10 Abdomen/GI: Exam negative for discomfort, distension, guarding, Inspection: cp abdomen appears normal, cp 11/01 23:39 10/31 20:10 Musculoskeletal/extremity: Extremities: grossly normal except: noted in the cp right forearm: laceration, pain, There is no evidence of decreased ROM, deformity, ROM: full active range of motion, in the right shoulder and right elbow and right wrist, Pulses: noted to be 2+ in the right radial artery, the right arm Sensation intact. cp 11/01 23:39 10/31 20:10 Neuro: Orientation: to person, place \\T\\ time. Mentation: is normal, Gait: is cp steady, at a normal pace, without difficulty, cp
--- NOTE | 2021-11-01 20:57 | ER ---
Nurse's Notes [facility] Name: Walt Velazquez Age: 50 yrs Sex: Male : 1970 Arrival Date: 11/01/2021 Time: 18:56 Bed 9 Private MD: Diagnosis: Laceration without foreign body of right forearm Presentation: 11/01 20:20 Chief complaint: Patient states: "I was here earlier today, I hurt my arm and it keeps vc1 bleeding.". Coronavirus screen: Vaccine status: Patient reports being unvaccinated. Ebola Screen: No symptoms or risks identified at this time. Risk Assessment: Do you want to hurt yourself or someone else? Patient reports no desire to harm self or others. Onset of symptoms is unknown. 20:20 Method Of Arrival: Ambulatory vc1 20:20 Acuity: LATASHA 4 vc1 21:00 Initial Sepsis Screen: Does the patient meet any 2 criteria? No. Patient's initial tw5 sepsis screen is negative. Does the patient have a suspected source of infection? No. Patient's initial sepsis screen is negative. Triage Assessment: 21:00 General: Appears in no apparent distress. Behavior is anxious, uncooperative, Smells of tw5 alcohol. Historical: - Allergies: 20:21 No Known Allergies; vc1 - Home Meds: 20:21 Prozac Oral [Active]; Trazodone Oral [Active]; vc1 - PMHx: 20:21 Alcoholism; Bipolar II; Hypertensive disorder; Parkinsons; Seizure; vc1 - Immunization history:: Adult Immunizations not up to date, Client reports having NOT received the Covid vaccine. - Social history:: Smoking status: Patient reports the use of cigarette tobacco products, smokes one pack cigarettes per day. Patient uses alcohol, on a daily basis. street drugs, marijuana, Methamphetamine (Meth) IV drugs. Screenin:56 Abuse screen: Denies threats or abuse. Denies injuries from another. Nutritional tw5 screening: No deficits noted. Tuberculosis screening: No symptoms or risk factors identified. Fall Risk Fall in past 12 months (25 points). Assessment: 20:56 General: Reports "I am just going to go home. I am going to buy a 12 pack of beer and a tw5 bottle of tequila. I will be just fine. I just want to go home.". Pain: Denies pain. 20:56 Injury Description: Laceration sustained to palmar aspect of left forearm no active tw5 bleeding noted at this time. Vital Signs: 21:00 tw5 21:00 "I dont need that done."' tw5 ED Course: 18:56 Patient arrived in ED. as 19:02 Deandre Sharma PA is PHCP. cp 19:02 Rudy Chavez MD is Attending Physician. cp 19:37 Jovanny Wen DO is Attending Physician. cp 20:18 Niecy Roberto, ROBERTO is Primary Nurse. vc1 20:20 Triage completed. vc1 20:21 Arm band placed on right wrist. vc1 20:56 Patient has correct armband on for positive identification. tw5 20:56 Dressings: Band aid. tw5 20:58 XRAY Forearm RIGHT In Process Unspecified. EDMS 21:00 No provider procedures requiring assistance completed. Patient did not have IV access tw5 during this emergency room visit. Administered Medications: 20:19 Drug: Ibuprofen 800 mg Route: PO; vc1 20:56 Not Given (Patient Refused): Lidocaine-Epinephrine -1%: (1:100,000) 10 ml 20 ml tw5 Infiltration once; to bedside Medication: 20:56 VIS not applicable for this client. tw5 Outcome: 20:56 Discharge ordered by . cp 20:56 Discharged to home ambulatory. tw5 20:56 Condition: unchanged 20:56 Discharge instructions given to patient, Instructed on discharge instructions, the need for admit, Demonstrated understanding of instructions, follow-up care, medications, Prescriptions given X 2. 21:00 Patient left the ED. tw5 Signatures: Dispatcher [employer] EDMS Shanta Mortensen as Deandre Sharma PA PA cp Wood, Tiffany tw5 Niecy Roberto, RN RN vc1
--- NOTE | 2021-11-01 21:08 | RAD REPORT ---
EXAM DESCRIPTION: RAD - Forearm Right - 11/01/2021 8:56 pm CLINICAL HISTORY: PAIN COMPARISON: Forearm Right dated 03/06/2015 FINDINGS: No acute fracture or dislocation seen. Heavy vascular calcification noted. Small olecranon spur.
== END 2021-11-01 21:00 | disposition home or self-care (01) ==
LOC: ER 18:52
DX: S51.811A Laceration without foreign body of right forearm, initial encounter (principal); F10.20 Alcohol dependence, uncomplicated; F31.81 Bipolar II disorder; G20 Parkinson's disease; I10 Essential (primary) hypertension; F17.210 Nicotine dependence, cigarettes, uncomplicated
CPT/HCPCS: 99283

== ENCOUNTER 2021-11-03 00:14 | Emergency (ER) | payer SELFPAY ==
--- OUTSIDE RECORDS SUMMARY | 2021-11-03 00:16 | XMS REPORT | Continuity of Care Document ---
:1970 Author Organization [facility] t Address [address] [place] [address] Care Team Providers Name Role Phone Pcp-None Primary Care Physician Unavailable Melanie Attending Clinician Unavailable Problems This patient has no known problems. Allergies, Adverse Reactions, Alerts This patient has no known allergies or adverse reactions. Medications This patient has no known medications. Procedures This patient has no known procedures. Results Test Description Test Time Test Comments Results Result [facility] e Comments CT head/brain wo con [facility] [address] [place] [address] Patient Name: Walt Velazquez Medical Record#: [id number] Address: Homeless City/State/Zip: [place] [address]: Vinnie Navarro MD Insurance: Self Pay /Age/Sex: 1970/50/M Admit/Reg Date: 09/17/[address]: Vinnie Navarro MD Location: [facility]/ PCP: Pcp-Md KERWIN Stiles Date of Service: 09/17/21 Order (s): CT head/brain wo con CPT Code: 07505 Report Number: [id number] Reason for Exam: Altered mental status Location [...]
[2021-11-03 01:14] LABS: Absolute Lymphocytes (CBC) 2.4 K/uL (0.7-4.9); Hematocrit 36.2 % (39.6-49.0); Lymphocytes % 36.6 % (15.3-44.8); MPV 6.1 fL (7.6-11.3); RBC Red Blood Cell Count 3.89 M/uL (4.33-5.43)
[2021-11-03 01:29] LABS: Potassium 3.2 mmol/L (3.5-5.1)
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
[2021-11-03 05:31] VITALS: O2SAT 98
[2021-11-03 05:33] VITALS: BP 113/70
--- NOTE | 2021-11-04 12:09 | RAD REPORT ---
EXAM DESCRIPTION: RAD - Forearm Right - 11/03/2021 1:15 am CLINICAL HISTORY: PAIN COMPARISON: None. TECHNIQUE: XR FOREARM 11/03/2021 12:42 AM CDT FINDINGS: There is no fracture. Joint spaces are preserved. There is a large laceration involving the dorsum of the distal forearm. There are heavy vascular calcifications throughout the volar portio n of the forearm. IMPRESSION: No acute osseous findings. Electronically signed by: Ethan Torres MD 11/03/2021 1:47 AM CDT Due to temporary technical issues with the PACS/Fluency reporting system, reports are being signed by the in house radiologist without review as a courtesy to ensure prompt reporting. The interpreting r adiologist is fully responsible for the content of the report.
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
== END 2021-11-03 05:15 | disposition home or self-care (01) ==
LOC: ER 00:14
DX: S51.811A Laceration without foreign body of right forearm, initial encounter (principal); V09.9XXA Pedestrian injured in unspecified transport accident, initial encounter; I10 Essential (primary) hypertension; F31.81 Bipolar II disorder; G20 Parkinson's disease; F10.20 Alcohol dependence, uncomplicated
CPT/HCPCS: 36415; 70450; 71260; 72125; 74177; 80048; 85025; 86850; 86900; 86901; 99284; Q9967

== ENCOUNTER 2021-12-06 08:49 | Emergency (ER) | payer SELFPAY ==
--- OUTSIDE RECORDS SUMMARY | 2021-12-06 08:51 | XMS REPORT | Continuity of Care Document ---
:1970 Author Organization [facility] t Address [address] [place] [address] Care Team Providers Name Role Phone Pcp-None Primary Care Physician Unavailable Melanie Attending Clinician Unavailable Problems This patient has no known problems. Allergies, Adverse Reactions, Alerts This patient has no known allergies or adverse reactions. Medications This patient has no known medications. Procedures This patient has no known procedures. Results Test Description Test Time Test Comments Results Result [facility] e Comments CT head/brain wo con [facility] [address] [place] [address] Patient Name: Walt Velazquez Medical Record#: [id number] Address: Homeless City/State/Zip: [place] [address]: Vinnie Navarro MD Insurance: Self Pay /Age/Sex: 1970/50/M Admit/Reg Date: 09/17/[address]: Vinnie Navarro MD Location: [facility]/ PCP: Pcp-Md KERWIN Stiles Date of Service: 09/17/21 Order (s): CT head/brain wo con CPT Code: 00721 Report Number: [id number] Reason for Exam: Altered mental status Location [...]
[2021-12-06] MEDS ORDERED: DIAZEPAM 10 MG/2 ML INJ SYRINGE ONE (09:32)
[2021-12-06] MEDS ORDERED: FOLIC ACID 1 MG, THIAMINE HCL 100 MG, MULTIVITAMINS INJ 10 ML in NA CHLORIDE 0.9% 1,000 ML IV ONE (09:45)
[2021-12-06 09:53] LABS: Absolute Lymphocytes (CBC) 0.7 K/uL (0.7-4.9); Hematocrit 44.8 % (39.6-49.0); Lymphocytes % 18.2 % (15.3-44.8); MPV 6.7 fL (7.6-11.3); RBC Red Blood Cell Count 4.64 M/uL (4.33-5.43)
[2021-12-06 09:59] LABS: Protime INR 0.91
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
[2021-12-06 10:42] LABS: Albumin 4.1 g/dL (3.4-5.0); Bilirubin Direct 0.2 mg/dL (0-0.2); Bilirubin Total 0.6 mg/dL (0.2-1.0); Potassium 3.9 mmol/L (3.5-5.1); Protein, Total 7.9 g/dL (6.4-8.2)
[2021-12-06 12:32] LABS: Urine Blood Negative (Negative); Urine Glucose Trace (Negative); Urine Protein Negative (Negative); Urine Specific Gravity 1.025 (1.005-1.030); Urine pH 5.5 (5.0-7.0)
--- NOTE | 2021-12-06 12:46 | EDPHYS ---
Physician Documentation [facility] Name: Walt Velazquez Age: 50 yrs Sex: Male : 1970 Arrival Date: 12/06/2021 Time: 08:55 Bed 6 Private MD: ED Physician Finesse Grajeda HPI: 12/06 09:22 This 50 yrs old Male presents to ER via EMS with complaints of Alcoholic seizure. ma2 09:22 Patient said his alcoholic he drinks beer every hour,, was arrested yesterday by police ma2 denies any drink since last night, he was released from senior living this [facility], patient states he had alcoholic seizures last night because he did not drink alcohol, feels shaky at this time he feels about to have a seizure, denies having seizure disorder other than alcoholic withdrawal seizure like to be discharged so he can be able to drink alcohol.. Historical: - Allergies: 09:01 No Known Allergies; jd3 - Home Meds: 09:01 Prozac Oral [Active]; Trazodone Oral [Active]; jd3 - PMHx: 09:01 Alcoholism; Bipolar II; Hypertensive disorder; Parkinsons; Seizure; jd3 - Immunization history:: Adult Immunizations up to date. - Social history:: Smoking status: Patient reports the use of cigarette tobacco products, Patient uses alcohol, on a daily basis. - Family history:: not pertinent. ROS: 09:22 Constitutional: Negative for fever, chills, and weight loss. ma2 09:22 All other systems are negative. Exam: 09:22 Constitutional: This is a well developed, well nourished patient who is awake, alert, ma2 and in no acute distress. Head/Face: Normocephalic, atraumatic. Eyes: Pupils equal round and reactive to light, extra-ocular motions intact. Lids and lashes normal. Conjunctiva and sclera are non-icteric and not injected. Cornea within normal limits. Periorbital areas with no swelling, redness, or edema. ENT: Nares patent. No nasal discharge, no septal abnormalities noted. Tympanic membranes are normal and external auditory canals are clear. Oropharynx with no redness, swelling, or masses, exudates, or evidence of obstruction, uvula midline. Mucous membranes moist. Neck: Trachea midline, no thyromegaly or masses palpated, and no cervical lymphadenopathy. Supple, full range of motion without nuchal rigidity, or vertebral point tenderness. No Meningismus. Chest/axilla: Normal chest wall appearance and motion. Nontender with no deformity. No lesions are appreciated. Cardiovascular: Regular rate and rhythm with a normal S1 and S2. No gallops, murmurs, or rubs. Normal PMI, no JVD. No pulse deficits. Respiratory: Lungs have equal breath sounds bilaterally, clear to auscultation and percussion. No rales, rhonchi or wheezes noted. No increased work of breathing, no retractions or nasal flaring. Abdomen/GI: Soft, non-tender, with normal bowel sounds. No distension or tympany. No guarding or rebound. No evidence of tenderness throughout. Skin: Warm, dry with normal turgor. Normal color with no rashes, no lesions, and no evidence of cellulitis. MS/ Extremity: Pulses equal, no cyanosis. Neurovascular intact. Full, normal range of motion. Neuro: Awake and alert, GCS 15, oriented to person, place, time, and situation. Cranial nerves II-XII grossly intact. Motor strength 5/5 in all extremities. Sensory grossly intact. Cerebellar exam normal. Normal gait. Vital Signs: 08:56 BP 138 / 88; Pulse 102; Resp 22; Temp 98.5(O); Pulse Ox 99% on R/A; Weight 61.23 kg 7 (R); Height 5 ft. 3 in. (160.02 cm) (R); 09:03 Pain 5/10; jd3 09:38 BP 111 / 67; Pulse 85; Resp 16 S; Pulse Ox 96% on R/A; jd3 10:28 BP 123 / 77; Pulse 77; Resp 16 S; Pulse Ox 98% on R/A; jd3 11:09 BP 143 / 71; Pulse 90; Resp 19 S; Pulse Ox 99% on R/A; jd3 12:07 BP 146 / 82; Pulse 91; Resp 18 S; Pulse Ox 99% on R/A; jd3 08:56 Body Mass Index 23.91 (61.23 kg, 160.02 cm) [facility] MDM: 09:16 Patient medically screened. ma2 12:45 Differential Diagnosis Patient diagnoses include alcohol withdrawal seizure, versus ma2 delirium tremens, patient like to be discharged. . Data reviewed: vital signs, nurses notes. Counseling: I had a detailed discussion with the patient and/or guardian regarding: the historical points, exam findings, and any diagnostic results supporting the discharge/admit diagnosis, the presence of at least one elevated blood pressure reading (>120/80) during this emergency department visit, the need for outpatient follow up. Response to treatment: the patient's symptoms have markedly improved after treatment. 12/06 09:20 Order name: Basic Metabolic Panel [facility] 12/06 09:20 Order name: CBC with Diff; Complete Time: 10:30 [facility] 12/06 09:20 Order name: ETOH Level; Complete Time: 12:11 [facility] 12/06 09:20 Order name: Hepatic Function [facility] 12/06 09:20 Order name: PT-INR; Complete Time: 10:30 [facility] 12/06 09:20 Order name: Ptt, Activated; Complete Time: 10:30 [facility] 12/06 09:20 Order name: Salicylate; Complete Time: 12:11 [facility] 12/06 09:20 Order name: Urine Drug Screen [facility] 12/06 09:20 Order name: EKG; Complete Time: 09:20 [facility] 12/06 09:24 Order name: CT Head Brain wo Cont; Complete Time: 10:30 [facility] 12/06 12:32 Order name: Urine Dipstick-Ancillary [facility] 12/06 09:20 Order name: EKG - Nurse/Tech; Complete Time: 09:23 [facility] 12/06 09:20 Order name: IV Saline Lock; Complete Time: 09:23 [facility] 12/06 09:20 Order name: Labs collected and sent; Complete Time: 09:23 [facility] 12/06 09:20 Order name: Suicide Screening ([place]); Complete Time: 09:23 [facility] 12/06 09:20 Order name: Urine Dipstick-Ancillary (obtain specimen); Complete Time: 12:32 ma Administered Medications: 09:30 Drug: Valium (diazepam) 10 mg Route: IVP; Site: right antecubital; jd3 10:28 Follow up: Response: No adverse reaction jd3 10:27 Drug: Banana Bag - (NS 0.9% 1000 ml, foLIC Acid 1 mg, Thiamine 100 mg, Multivitamin 1 jd3 amp) Route: IV; Rate: calculated rate; Site: right antecubital; 11:20 Follow up: Response: No adverse reaction; IV Status: Completed infusion jd3 Disposition Summary: 12/06/21 12:46 Discharge Ordered Location: Home ma2 Condition: Stable ma2 Diagnosis - Alcohol dependence ma2 Followup: ma2 - With: Private Physician - When: Tomorrow - Reason: If symptoms return Discharge Instructions: - Discharge Summary Sheet ma2 - Alcohol Abuse and Nutrition ma2 Forms: - Medication Reconciliation Form ma2 - Thank You Letter ma2 - Antibiotic Education ma2 - Prescription Opioid Use ma2 Signatures: Dispatcher [employer] Oliver Stratton RN RN jd3 Finesse Grajeda MD MD ma2 Corrections: (The following items were deleted from the chart) 12: 09:20 ACETAMINOPHEN+C.LAB.BRZ ordered. YULIYA DWYER
--- NOTE | 2021-12-06 12:46 | ER ---
Nurse's Notes [facility] Name: Walt Velazquez Age: 50 yrs Sex: Male : 1970 Arrival Date: 12/06/2021 Time: 08:55 Bed 6 Private MD: Diagnosis: Alcohol dependence Presentation: 12/06 08:56 Chief complaint: EMS states: "last night the pt was arrested for PI and started having jd3 symptoms of detoxing symptoms. he reports that he is a heavy drinker and we have ran on him in the past and that when he does not have alcohol regularly he starts to have detox symptoms fast.". Coronavirus screen: At this time, the client does not indicate any symptoms associated with coronavirus-19. Ebola Screen: No symptoms or risks identified at this time. Initial Sepsis Screen: Does the patient meet any 2 criteria? No. Patient's initial sepsis screen is negative. Does the patient have a suspected source of infection? No. Patient's initial sepsis screen is negative. Risk Assessment: Do you want to hurt yourself or someone else? Patient reports no desire to harm self or others. Onset of symptoms was December 06, 2021. 08:56 Method Of Arrival: EMS: [facility] jd3 08:56 Acuity: LATASHA 2 jd3 Historical: - Allergies: 09:01 No Known Allergies; jd3 - Home Meds: 09:01 Prozac Oral [Active]; Trazodone Oral [Active]; jd3 - PMHx: 09:01 Alcoholism; Bipolar II; Hypertensive disorder; Parkinsons; Seizure; jd3 - Immunization history:: Adult Immunizations up to date. - Social history:: Smoking status: Patient reports the use of cigarette tobacco products, Patient uses alcohol, on a daily basis. - Family history:: not pertinent. Screenin:03 Clinical [place] Withdrawal Assessment for Alcohol, revised (CIWA-Ar): jd3 Nausea/Vomitin - Intermittent nausea with dry heaves Headache: 2 - Mild Paroxysmal Sweats: 0 - No sweats visible Anxiety: 4 - Moderately anxious, guarded Agitation: 0 - Normal actiivty Tremor: 4 - Moderate when client's hands extended Auditory Disturbances: 0 - Not present Visual Disturbances: 0 - Not present Tactile Disturbances: 0 - None Orientation and Clouding of Sensorium: 0 - Oriented and can do serial additions Total Score: 10 to 15: Mild Withdrawal. Abuse screen: Denies threats or abuse. Nutritional screening: No deficits noted. Tuberculosis screening: No symptoms or risk factors identified. Fall Risk Ambulatory Aid- None/Bed Rest/Nurse Assist (0 pts). Gait- Normal/Bed Rest/Wheelchair (0 pts) Mental Status- Oriented to own ability (0 pts). Total Cadena Fall Scale indicates No Risk (0-24 pts). 09:39 [facility] [place] Withdrawal Assessment for Alcohol, revised ([facility]): jd3 Nausea/Vomitin - No nausea or vomiting Headache: 0 - Not present Paroxysmal Sweats: 0 - No sweats visible Anxiety: 0 - No anxiety, at ease Agitation: 0 - Normal actiivty Tremor: 4 - Moderate when client's hands extended Auditory Disturbances: 0 - Not present Visual Disturbances: 0 - Not present Tactile Disturbances: 0 - None Orientation and Clouding of Sensorium: 0 - Oriented and can do serial additions Total Score: < 10 Very mild withdrawal. 10:28 Clinical [place] Withdrawal Assessment for Alcohol, revised ([facility]): jd3 Nausea/Vomitin - No nausea or vomiting Headache: 0 - Not present Paroxysmal Sweats: 0 - No sweats visible Anxiety: 0 - No anxiety, at ease Agitation: 0 - Normal actiivty Tremor: 1 - Not visible, but can be felt at fingertips Auditory Disturbances: 0 - Not present Visual Disturbances: 0 - Not present Tactile Disturbances: 0 - None Orientation and Clouding of Sensorium: 0 - Oriented and can do serial additions Total Score: < 10 Very mild withdrawal. Assessment: 09:01 General: Appears in no apparent distress. comfortable, Behavior is cooperative, jd3 appropriate for age, anxious. Pain: Complains of pain in head and abdomen Quality of pain is described as aching. Neuro: Kinsey Agitation-Sedation Scale (RASS): +1 Restless Level of Consciousness is awake, alert, obeys commands, Oriented to person, place, time, situation. Cardiovascular: Heart tones present Capillary refill < 3 seconds Patient's skin is warm and dry. Rhythm is sinus tachycardia. Respiratory: Airway is patent Respiratory effort is even, unlabored, Respiratory pattern is regular, symmetrical, Breath sounds are clear bilaterally. Denies cough, shortness of breath. GI: Abdomen is round Reports upper abdominal pain, nausea. : No signs and/or symptoms were reported regarding the genitourinary system. EENT: No signs and/or symptoms were reported regarding the EENT system. Derm: Skin is intact, Skin is dry, Skin is normal, Skin temperature is warm. Musculoskeletal: Circulation, motion, and sensation intact. Range of motion: intact in all extremities. 09:40 Reassessment: No changes from previously documented assessment. Patient and/or family jd3 updated on plan of care and expected duration. Pain level reassessed. Patient is alert, oriented x 3, equal unlabored respirations, skin warm/dry/pink. Patient states symptoms have improved. 10:28 Reassessment: Patient appears in no apparent distress at this time. Patient and/or jd3 family updated on plan of care and expected duration. Pain level reassessed. Patient is alert, oriented x 3, equal unlabored respirations, skin warm/dry/pink. Patient states feeling better. 11:09 Reassessment: Patient appears in no apparent distress at this time. Patient and/or jd3 family updated on plan of care and expected duration. Pain level reassessed. Patient is alert, oriented x 3, equal unlabored respirations, skin warm/dry/pink. PO fluids and food given to pt. 12:08 Reassessment: Patient appears in no apparent distress at this time. Patient and/or jd3 family updated on plan of care and expected duration. Pain level reassessed. Patient is alert, oriented x 3, equal unlabored respirations, skin warm/dry/pink. Vital Signs: 08:56 BP 138 / 88; Pulse 102; Resp 22; Temp 98.5(O); Pulse Ox 99% on R/A; Weight 61.23 kg mb7 (R); Height 5 ft. 3 in. (160.02 cm) (R); 09:03 Pain 5/10; jd3 09:38 BP 111 / 67; Pulse 85; Resp 16 S; Pulse Ox 96% on R/A; jd3 10:28 BP 123 / 77; Pulse 77; Resp 16 S; Pulse Ox 98% on R/A; jd3 11:09 BP 143 / 71; Pulse 90; Resp 19 S; Pulse Ox 99% on R/A; jd3 12:07 BP 146 / 82; Pulse 91; Resp 18 S; Pulse Ox 99% on R/A; jd3 08:56 Body Mass Index 23.91 (61.23 kg, 160.02 cm) mb7 ED Course: 08:55 Patient arrived in ED. iw 08:56 Oliver Thomas, RN is Primary Nurse. jd3 08:57 Finesse Grajeda MD is Attending Physician. ma2 08:57 Allergy band placed. Bed in low position. Call light in reach. Side rails up X 1. mb7 Seizure precautions initiated. Noise minimized. Warm blanket given. 08:59 cardiac monitor on. mb7 09:00 Triage completed. jd3 09:01 Arm band placed on. jd3 09:14 EKG done, by ED staff, reviewed by Finesse Grajeda MD. Inserted saline lock: 20 gauge mb7 in right forearm, using aseptic technique. Blood collected. 09:53 CT Head Brain wo Cont In Process Unspecified. EDMS 12:45 No provider procedures requiring assistance completed. IV discontinued, intact, jd3 bleeding controlled, No redness/swelling at site. Pressure dressing applied. Administered Medications: 09:30 Drug: Valium (diazepam) 10 mg Route: IVP; Site: right antecubital; jd3 10:28 Follow up: Response: No adverse reaction jd3 10:27 Drug: Banana Bag - (NS 0.9% 1000 ml, foLIC Acid 1 mg, Thiamine 100 mg, Multivitamin 1 jd3 amp) Route: IV; Rate: calculated rate; Site: right antecubital; 11:20 Follow up: Response: No adverse reaction; IV Status: Completed infusion jd3 Medication: 09:03 VIS not applicable for this client. jd3 Outcome: 12:46 Discharge ordered by . ma2 12:49 Discharged to home ambulatory. iw 12:49 Condition: good 12:49 Discharge instructions given to patient, Instructed on discharge instructions, follow up and referral plans. Demonstrated understanding of instructions, follow-up care. 12:49 Patient left the ED. iw Signatures: Dispatcher [employer] EDMS Marita Hernandez RN RN iw Davies, Jonathon, ROBERTO RN jFinesse Plascencia MD MD ma2 Breneman, Mary mb7 Corrections: (The following items were deleted from the chart) 08:59 08:59 EKG done, mb7 mb7 09:05 09:03 Clinical Wh[place] Withdrawal Assessment for Alcohol, revised (CIWA-Ar): jd3 Nausea/Vomitin - No nausea or vomiting Headache: 2 - Mild Paroxysmal Sweats: 0 - No sweats visible Anxiety: 4 - Moderately anxious, guarded Agitation: 0 - Normal actiivty Tremor: 1 - Not visible, but can be felt at fingertips Auditory Disturbances: 0 - Not present Visual Disturbances: 0 - Not present Tactile Disturbances: 0 - None Orientation and Clouding of Sensorium: 0 - Oriented and can do serial additions Total Score: < 10 Very mild withdrawal jd3 :15 09:01 Cardiovascular: Capillary refill < 3 seconds Patient's skin is warm and dry. jd3 Rhythm is sinus tachycardia jd3 : 09:01 Respiratory: Airway is patent Respiratory effort is even, unlabored, Respiratory jd3 pattern is regular, symmetrical, Denies cough, shortness of breath jd3 : 09:01 GI: Abdomen is round Reports upper abdominal pain, nausea, jd3 jd3 : 09:01 : No signs and/or symptoms were reported regarding the genitourinary system. jd3jd3 09:40 09:03 Clinical [place] Withdrawal Assessment for Alcohol, revised ([facility]): jd3 Nausea/Vomitin - Intermittent nausea with dry heaves Headache: 2 - Mild Paroxysmal Sweats: 0 - No sweats visible Anxiety: 4 - Moderately anxious, guarded Agitation: 0 - Normal actiivty Tremor: 1 - Not visible, but can be felt at fingertips Auditory Disturbances: 0 - Not present Visual Disturbances: 0 - Not present Tactile Disturbances: 0 - None Orientation and Clouding of Sensorium: 0 - Oriented and can do serial additions Total Score: 10 to 15: Mild Withdrawal jd3
[2021-12-06 12:58] VITALS: TEMP 98.5
[2021-12-06 13:02] LABS: Barbiturates NEGATIVE (NEGATIVE); Benzodiazepines NEGATIVE (NEGATIVE); Cocaine NEGATIVE (NEGATIVE); METHAMPHETAM NEGATIVE (NEGATIVE); Methadone NEGATIVE (NEGATIVE); Opiates NEGATIVE (NEGATIVE); Phencyclidine NEGATIVE (NEGATIVE); THC Cannibis NEGATIVE (NEGATIVE)
[2021-12-06 13:04] VITALS: O2SAT 99
[2021-12-06 13:06] VITALS: BP 146/82
--- NOTE | 2021-12-09 12:00 | EKG ---
Test Date: 2021-12-06 Test Time: 09:09:11 Parking Garage Manager: MELVA MEASUREMENT RESULTS: Intervals: Rate: 85 CT: 172 QRSD: 74 QT: 348 QTc: 414 Howell: P: 55 CT: 172 QRS: 44 T: 26 INTERPRETIVE STATEMENTS: Normal sinus rhythm Normal ECG Compared to ECG 05/09/2021 04:27:00 No significant changes Electronically Signed On 12-09-21 11:52:37 CDT by Asim Thompson
== END 2021-12-06 12:49 | disposition home or self-care (01) ==
LOC: ER 08:49
DX: F10.20 Alcohol dependence, uncomplicated (principal); G20 Parkinson's disease; I10 Essential (primary) hypertension; F31.81 Bipolar II disorder
CPT/HCPCS: 36415; 70450; 80048; 80076; 80307; 80320; 80329; 81003; 85025; 85610; 85730; 93005; 96365; 96375; 99284; J3360; J3411; J7030

== ENCOUNTER 2021-12-14 18:23 | Emergency (ER) | payer SELFPAY ==
--- OUTSIDE RECORDS SUMMARY | 2021-12-14 18:26 | XMS REPORT | Continuity of Care Document ---
:1970 Author Organization [facility] t Address [address] [place] [address] Care Team Providers Name Role Phone Pcp-None Primary Care Physician Unavailable Melanie Attending Clinician Unavailable Problems This patient has no known problems. Allergies, Adverse Reactions, Alerts This patient has no known allergies or adverse reactions. Medications This patient has no known medications. Procedures This patient has no known procedures. Results Test Description Test Time Test Comments Results Result [facility] e Comments CT head/brain wo con [facility] [address] [place] [address] Patient Name: Walt Velazquez Medical Record#: [id number] Address: Homeless City/State/Zip: [place] [address]: Vinnie Navarro MD Insurance: Self Pay /Age/Sex: 1970/50/M Admit/Reg Date: 09/17/[address]: Vinnie Navarro MD Location: [facility]/ PCP: PcpMd KERWIN Jimenez Date of Service: 09/17/21 Order (s): CT head/brain wo con CPT Code: 42301 Report Number: [id number] Reason for Exam: Altered mental status Location [...]
--- NOTE | 2021-12-14 19:53 | ER ---
Nurse's Notes [facility] Name: Walt Velazquez Age: 50 yrs Sex: Male : 1970 Arrival Date: 12/14/2021 Time: 18:24 Bed 8 Private MD: Diagnosis: Presentation: 12/14 18:45 Chief complaint: EMS states: Toned out for possible dehydration. Pt was walking in [employer] store parking lot and fell down - denies LOC - did not hit head. C/O headache. Coronavirus screen: At this time, the client does not indicate any symptoms associated with coronavirus-19. Ebola Screen: No symptoms or risks identified at this time. Initial Sepsis Screen: Does the patient meet any 2 criteria? No. Patient's initial sepsis screen is negative. Does the patient have a suspected source of infection? No. Patient's initial sepsis screen is negative. Risk Assessment: Do you want to hurt yourself or someone else? Patient reports no desire to harm self or others. Onset of symptoms was December 14, 2021. 18:45 Method Of Arrival: EMS: [facility] ld1 18:45 Acuity: LATASHA 3 ld1 Triage Assessment: 18:46 General: Appears in no apparent distress. comfortable, Behavior is calm, cooperative, ld1 appropriate for age. Pain: Complains of pain in face Pain does not radiate. Pain currently is 6 out of 10 on a pain scale. EENT: No signs and/or symptoms were reported regarding the EENT system. Neuro: Level of Consciousness is awake, alert, obeys commands, Oriented to person, place, time, situation. Cardiovascular: Capillary refill < 3 seconds Patient's skin is warm and dry. Respiratory: Airway is patent Respiratory effort is even, unlabored. GI: Abdomen is flat, non-distended. : No signs and/or symptoms were reported regarding the genitourinary system. Derm: No signs and/or symptoms reported regarding the dermatologic system. Musculoskeletal: No signs and/or symptoms reported regarding the musculoskeletal system. Historical: - Allergies: 18:46 No Known Allergies; ld1 - PMHx: 18:46 Alcoholism; Bipolar II; Hypertensive disorder; Parkinsons; Seizure; ld1 - PSHx: 18:46 None; ld1 - Immunization history:: Adult Immunizations up to date, Client reports having NOT received the Covid vaccine. - Social history:: Smoking status: Patient denies any tobacco usage or history of. Patient uses alcohol, on a daily basis. Assessment: 19:39 Reassessment: Pt attempted to walk out of the ambulance bay doors pushing them out of 1 place. Pt directed back to his room by photovoltaic testing technician but decided he wanted to leave. Pt seen exiting ER. Vital Signs: 18:45 BP 126 / 74; Pulse 100; Resp 18; Temp 98.7(O); Pulse Ox 96% on R/A; Weight 65.77 kg; ld1 Height 5 ft. 8 in. (172.72 cm); Pain 6/10; 18:45 Body Mass Index 22.05 (65.77 kg, 172.72 cm) ld1 ED Course: 18:24 Patient arrived in ED. as 18:46 Triage completed. ld1 18:46 Arm band placed on right wrist. ld1 19:29 Elton Lopez MD is Attending Physician. 7 Administered Medications: No medications were administered Outcome: 19:52 Patient left the ED. lp1 Signatures: Shanta Mortensen Laura, RN RN 1 Elton Lopez MD MD [facility] Basilia Waterman RN RN 1 Niecy Roberto RN RN [facility]
[2021-12-14 20:43] VITALS: BP 126/74; TEMP 98.7; O2SAT 96
== END 2021-12-14 19:52 | disposition left against medical advice (07) ==
LOC: ER 18:23
DX: Z53.21 Procedure and treatment not carried out due to patient leaving prior to being seen by health care provider (principal)
CPT/HCPCS: 99282

== ENCOUNTER 2021-12-18 21:28 | Emergency (ER) | payer SELFPAY ==
[2021-12-18 23:42] LABS: Hematocrit 44.2 % (39.6-49.0); Lymphocytes % 28.7 % (15.3-44.8); MPV 7.3 fL (7.6-11.3); RBC Red Blood Cell Count 4.46 M/uL (4.33-5.43)
[2021-12-18 23:45] LABS: Protime INR 0.89
[2021-12-19] MEDS ORDERED: THIAMINE 200 MG/2 ML INJ ONE (00:12)
[2021-12-19] MEDS ORDERED: MULTIVITAMINS 10 ML VIAL (INJ) IV ONE (00:13)
[2021-12-19] MEDS ORDERED: NA CHLORIDE 0.9% 1,000 ML ONE (00:14)
[2021-12-19] MEDS ORDERED: FOLIC ACID 5 MG/ML VIAL ONE (00:14)
[2021-12-19 00:26] LABS: ALT/SGPT 57 U/L (12-78); AST/SGOT 80 U/L (15-37); Albumin 3.9 g/dL (3.4-5.0); Alkaline Phosphatase 116 U/L (45-117); BUN Blood Urea Nitrogen 5 mg/dL (7-18); Bicarbonate 27 mmol/L (21-32); Bilirubin Direct 0.2 mg/dL (0-0.2); Bilirubin Total 0.4 mg/dL (0.2-1.0); Glomerular Filtration Rate 113 ml/min (=/>90); Glucose Level 205 mg/dL (74-106); Potassium 3.4 mmol/L (3.5-5.1); Protein, Total 7.7 g/dL (6.4-8.2); Sodium Level 138 mmol/L (136-145)
[2021-12-19 00:43] LABS: Blood Morphology Comment NOT SEEN (NOT SEEN); Platelet Estimate DECR; White Blood Cell Scan OK (OK)
--- NOTE | 2021-12-19 08:53 | EDPHYS ---
Physician Documentation [facility] Name: Walt Velazquez Age: 50 yrs Sex: Male : 1970 Arrival Date: 12/18/2021 Time: 21:43 Bed Treatment Private MD: ED Physician Deandre Mckeon HPI: 12/19 08:46 This 50 yrs old Male presents to ER via EMS with complaints of Unresponsive. kdr 08:46 Patient was found unresponsive and thought to have ingested opioids. It is unknown what kdr opioid or when he may have ingested it.. Onset: The symptoms/episode began/occurred this morning. Severity of symptoms: At their worst the symptoms were mild moderate just prior to arrival, in the emergency department the symptoms are unchanged. It is unknown whether or not the patient has had similar symptoms in the past. The patient has not recently seen a physician. Patient was found unresponsive. Bystander CPR was initiated. EMS arrived shortly afterwards. Patient was given Narcan on scene and aroused. He subsequently became more lethargic and was given more Narcan after arrival here. The patient was generally in control of his airway while awake or only lightly sedated. The patient was otherwise stable and did not require immediate intubation. Historical: - Allergies: 12/18 22:16 No Known Allergies; lg3 - PMHx: 22:16 Alcoholism; Bipolar II; Hypertensive disorder; Parkinsons; Seizure; lg3 - PSHx: 22:16 None; lg3 - Immunization history:: Adult Immunizations up to date, Client reports having NOT received the Covid vaccine. - Social history:: Smoking status: unknown Patient uses alcohol, on a daily basis. ROS: 12/19 08:46 Constitutional: Negative for fever, chills, and weight loss, Eyes: Negative for injury, kdr pain, redness, and discharge, Neck: Negative for injury, pain, and swelling, Cardiovascular: Negative for chest pain, palpitations, and edema, Respiratory: Negative for shortness of breath, cough, wheezing, and pleuritic chest pain, Abdomen/GI: Negative for abdominal pain, nausea, vomiting, diarrhea, and constipation, Back: Negative for injury and pain, MS/Extremity: Negative for injury and deformity, Skin: Negative for injury, rash, and discoloration, Psych: Negative for depression, anxiety, suicide ideation, homicidal ideation, and hallucinations, Allergy/Immunology: Negative for hives, rash, and allergies, Endocrine: Negative for neck swelling, polydipsia, polyuria, polyphagia, and marked weight changes, Hematologic/Lymphatic: Negative for swollen nodes, abnormal bleeding, and unusual bruising. Neuro: Positive for altered mental status, numbness, weakness. Exam: 08:49 Constitutional: This is a well developed, well nourished patient who is somnolent but kdr in no acute distress. Head/Face: Normocephalic, atraumatic. Eyes: Pupils equal round and reactive to light, extra-ocular motions intact. Lids and lashes normal. Conjunctiva and sclera are non-icteric and not injected. Cornea within normal limits. Periorbital areas with no swelling, redness, or edema. Neck: Trachea midline, no thyromegaly or masses palpated, and no cervical lymphadenopathy. Supple, full range of motion without nuchal rigidity, or vertebral point tenderness. No Meningismus. Chest/axilla: Normal chest wall appearance and motion. Nontender with no deformity. No lesions are appreciated. Cardiovascular: Regular rate and rhythm with a normal S1 and S2. No gallops, murmurs, or rubs. Normal PMI, no JVD. No pulse deficits. Respiratory: Lungs have equal breath sounds bilaterally, clear to auscultation and percussion. No rales, rhonchi or wheezes noted. No increased work of breathing, no retractions or nasal flaring. Abdomen/GI: Soft, non-tender, with normal bowel sounds. No distension or tympany. No guarding or rebound. No evidence of tenderness throughout. Back: No spinal tenderness. No costovertebral tenderness. Full range of motion. Skin: Warm, dry with normal turgor. Normal color with no rashes, no lesions, and no evidence of cellulitis. MS/ Extremity: Pulses equal, no cyanosis. Neurovascular intact. Full, normal range of motion. Psych: Awake, alert, with orientation to person, place and time. Behavior, mood, and affect are within normal limits. 08:49 Neuro: Cranial nerves: Cerebellar function: Motor: moves all fours, Sensation: is normal, no obvious gross deficits. Vital Signs: 12/18 22:16 BP 120 / 84; Pulse 85; Resp 14; Temp 98.7(TE); Pulse Ox 98% on R/A; Weight 65.77 kg; lg3 Height 5 ft. 8 in. (172.72 cm); Pain 0/10; 12/19 03:37 BP 132 / 82; Pulse 84; Resp 16; Pulse Ox 99% on R/A; lg3 06:36 BP 129 / 83; Pulse 79; Resp 16 S; Pulse Ox 97% on R/A; lg3 08:38 BP 133 / 67; Pulse 83; Resp 17; Pulse Ox 98% ; hill 12/18 22:16 Body Mass Index 22.05 (65.77 kg, 172.72 cm) lg3 MDM: 08:46 Patient medically screened. [facility] 08:49 Data reviewed: vital signs, nurses notes, lab test result(s), EKG, radiologic studies. kdr Counseling: I had a detailed discussion with the patient and/or guardian regarding: the historical points, exam findings, and any diagnostic results supporting the discharge/admit diagnosis, lab results, radiology results, the need for outpatient follow up. 12/18 21:46 Order name: Acetaminophen; Complete Time: 08:46 kdr 12/18 21:46 Order name: Basic Metabolic Panel; Complete Time: 08:46 kdr 12/18 21:46 Order name: CBC with Diff; Complete Time: 02:06 kdr 12/18 21:46 Order name: ETOH Level; Complete Time: 02:06 kdr 12/18 21:46 Order name: Hepatic Function; Complete Time: 08:46 kdr 12/18 21:46 Order name: PT-INR; Complete Time: 02:06 kdr 12/18 21:46 Order name: Ptt, Activated; Complete Time: 02:06 kdr 12/18 21:46 Order name: Salicylate; Complete Time: 02:06 kdr 12/18 21:46 Order name: Urine Drug Screen kdr 12/18 21:46 Order name: CT Head Brain wo Cont kdr 12/18 23:53 Order name: CBC Smear Scan; Complete Time: 02:06 EDMS 12/19 06:32 Order name: ETOH Level kdr 12/19 06:32 Order name: ETOH Level bb 12/18 21:46 Order name: IV Saline Lock; Complete Time: 23:13 kdr 12/18 21:46 Order name: Labs collected and sent; Complete Time: 23:13 kdr 12/18 21:46 Order name: Suicide Screening ([facility]); Complete Time: 23:13 kdr 12/19 08:09 Order name: Labs - recollect needed: ETOH iw Administered Medications: 00:13 Drug: Banana Bag - (NS 0.9% 1000 ml, foLIC Acid 1 mg, Thiamine 100 mg, Multivitamin 1 lg3 amp) Route: IV; Rate: calculated rate; Site: right forearm; 03:38 Follow up: Response: No adverse reaction; IV Status: Completed infusion; IV Intake: lg3 1000ml 10:54 Drug: Zofran (Ondansetron) 4 mg Route: IVP; Site: right forearm; iw Disposition Summary: 12/19/21 08:52 Discharge Ordered Location: Home bridgette Problem: new bridgette Symptoms: have improved bridgette Condition: Stable bridgette Diagnosis - Alcohol abuse bridgette - Alcohol dependence with intoxication bridgette - Bipolar disorder, unspecified bridgette Followup: bridgette - With: Private Physician - When: 2 - 3 days - Reason: Recheck today's complaints, Continuance of care, Re-evaluation by your physician Followup: bridgette - With: Enio Gallardo MD - When: 2 - 3 days - Reason: Recheck today's complaints, Re-evaluation by your physician Discharge Instructions: - Discharge Summary Sheet bridgette - Alcohol Intoxication bridgette - Alcohol Intoxication, [id number] bridgette - Alcohol Abuse and Nutrition bridgette - Bipolar 2 Disorder bridgette Forms: - Medication Reconciliation Form bridgette - Thank You Letter bridgette - Antibiotic Education bridgette - Prescription Opioid Use bridgette Signatures: Dispatcher [employer] Deandre Gonzales MD MD cha Rittger, Kevin, MD MD kdr Williams, Irene, RN RN Sara Gonsalez RN RN lg3
--- NOTE | 2021-12-19 08:53 | ER ---
Nurse's Notes [facility] Name: Walt Velazquez Age: 50 yrs Sex: Male : 1970 Arrival Date: 12/18/2021 Time: 21:43 Bed Treatment Private MD: Diagnosis: Alcohol abuse;Alcohol dependence with intoxication;Bipolar disorder, unspecified Presentation: 12/18 22:16 Chief complaint: EMS states: toned out for alcohol abuse. Coronavirus screen: At this lg3 time, the client does not indicate any symptoms associated with coronavirus-19. Ebola Screen: No symptoms or risks identified at this time. Initial Sepsis Screen: Does the patient meet any 2 criteria? No. Patient's initial sepsis screen is negative. Does the patient have a suspected source of infection? No. Patient's initial sepsis screen is negative. Risk Assessment: Do you want to hurt yourself or someone else? Patient reports no desire to harm self or others. Onset of symptoms was December 18, 2021. 22:16 Method Of Arrival: EMS: [facility] lg3 22:16 Acuity: LATASHA 3 lg3 Triage Assessment: 22:16 General: Appears in no apparent distress. comfortable, Behavior is calm, cooperative, lg3 appropriate for age. Pain: Denies pain. EENT: No signs and/or symptoms were reported regarding the EENT system. Neuro: Level of Consciousness is awake, alert, obeys commands, Oriented to person, place, time, situation. Cardiovascular: Capillary refill < 3 seconds Patient's skin is warm and dry. Rhythm is sinus rhythm. Respiratory: Airway is patent Respiratory effort is even, unlabored. GI: Abdomen is flat, non-distended. : No signs and/or symptoms were reported regarding the genitourinary system. Derm: No signs and/or symptoms reported regarding the dermatologic system. Musculoskeletal: No signs and/or symptoms reported regarding the musculoskeletal system. Historical: - Allergies: 22:16 No Known Allergies; lg3 - PMHx: 22:16 Alcoholism; Bipolar II; Hypertensive disorder; Parkinsons; Seizure; lg3 - PSHx: 22:16 None; lg3 - Immunization history:: Adult Immunizations up to date, Client reports having NOT received the Covid vaccine. - Social history:: Smoking status: unknown Patient uses alcohol, on a daily basis. Screenin:13 Abuse screen: Denies threats or abuse. Denies injuries from another. Nutritional lg3 screening: No deficits noted. Tuberculosis screening: No symptoms or risk factors identified. Fall Risk None identified. Assessment: 23:13 General: Appears in no apparent distress. comfortable, Behavior is calm, cooperative. lg3 General: Smells of alcohol. Pain: Denies pain. Neuro: No deficits noted. Level of Consciousness is awake, alert, obeys commands. Cardiovascular: No deficits noted. Denies chest pain, shortness of breath, Capillary refill < 3 seconds Clubbing of nail beds is absent JVD is absent Patient's skin is warm and dry. Respiratory: No deficits noted. Airway is patent Trachea midline Respiratory effort is even, unlabored, Respiratory pattern is regular, symmetrical. GI: Abdomen is round noted to have ascites. : No deficits noted. No signs and/or symptoms were reported regarding the genitourinary system. EENT: No deficits noted. No signs and/or symptoms were reported regarding the EENT system. Derm: No deficits noted. No signs and/or symptoms reported regarding the dermatologic system. Skin is intact, is healthy with good turgor, Skin is dry, Skin temperature is warm. Musculoskeletal: No deficits noted. No signs and/or symptoms reported regarding the musculoskeletal system. Circulation, motion, and sensation intact. Range of motion: intact in all extremities. 12/19 01:12 Reassessment: Patient appears in no apparent distress at this time. No changes from lg3 previously documented assessment. pt quietly resting at this time. 03:36 Reassessment: Patient appears in no apparent distress at this time. No changes from lg3 previously documented assessment. Patient and/or family updated on plan of care and expected duration. Pain level reassessed. Patient is alert, oriented x 3, equal unlabored respirations, skin warm/dry/pink. 05:01 Reassessment: Patient appears in no apparent distress at this time. General: pt quietly lg3 resting at this time . 06:36 Reassessment: Patient appears in no apparent distress at this time. No changes from lg3 previously documented assessment. Patient and/or family updated on plan of care and expected duration. Pain level reassessed. Patient is alert, oriented x 3, equal unlabored respirations, skin warm/dry/pink. Vital Signs: 12/18 22:16 BP 120 / 84; Pulse 85; Resp 14; Temp 98.7(TE); Pulse Ox 98% on R/A; Weight 65.77 kg; lg3 Height 5 ft. 8 in. (172.72 cm); Pain 0/10; 12/19 03:37 BP 132 / 82; Pulse 84; Resp 16; Pulse Ox 99% on R/A; lg3 06:36 BP 129 / 83; Pulse 79; Resp 16 S; Pulse Ox 97% on R/A; lg3 08:38 BP 133 / 67; Pulse 83; Resp 17; Pulse Ox 98% ; hill 12/18 22:16 Body Mass Index 22.05 (65.77 kg, 172.72 cm) lg3 ED Course: 12/18 21:43 Patient arrived in ED. bb 21:44 Rudy Chavez MD is Attending Physician. kdr 22:12 Sara Loredo, RN is Primary Nurse. lg3 22:16 Triage completed. lg3 22:16 Arm band placed on right wrist. lg3 23:13 Patient has correct armband on for positive identification. Bed in low position. Call lg3 light in reach. Side rails up X2. Client placed on continuous cardiac and pulse oximetry monitoring. NIBP monitoring applied. Door closed. Noise minimized. Warm blanket given. 23:13 Acetaminophen Sent. lg3 23:13 Basic Metabolic Panel Sent. lg3 23:13 CBC with Diff Sent. lg3 23:13 ETOH Level Sent. lg3 23:13 Hepatic Function Sent. lg3 23:13 PT-INR Sent. lg3 23:13 Ptt, Activated Sent. lg3 23:13 Salicylate Sent. lg3 23:13 Inserted saline lock: 20 gauge in right forearm, using aseptic technique. Blood lg3 collected. 12/19 00:52 CT Head Brain wo Cont In Process Unspecified. EDMS 07:00 ETOH Level Sent. lg3 08:46 Attending Physician role handed off by Rudy Chavez MD [facility] 08:46 Deandre Mckeon MD is Attending Physician. [facility] 08:52 Enio Gallardo MD is Referral Physician. bridgette Administered Medications: 00:13 Drug: Banana Bag - (NS 0.9% 1000 ml, foLIC Acid 1 mg, Thiamine 100 mg, Multivitamin 1 lg3 amp) Route: IV; Rate: calculated rate; Site: right forearm; 03:38 Follow up: Response: No adverse reaction; IV Status: Completed infusion; IV Intake: lg3 1000ml 10:54 Drug: Zofran (Ondansetron) 4 mg Route: IVP; Site: right forearm; iw Intake: 03:38 IV: 1000ml; Total: 1000ml. lg3 Outcome: 08:52 Discharge ordered by MD. [place] 11:06 Patient left the ED. iw Signatures: Dispatcher [employer] EDDeandre Castrejon MD MD cha Rittger, Kevin, MD MD kdr Ballard, Brenda, RN RN bb Williams, Irene, RN RN iw Gibson, Lacie, RN RN lg3 Kymberly-StagerLandy RN RN hill
[2021-12-19] MEDS ORDERED: ACETAMINOPHEN 325 MG TABLET ONE (10:50)
[2021-12-19] MEDS ORDERED: ONDANSETRON 4 MG/2 ML VIAL ONE (10:50)
[2021-12-19 11:13] VITALS: TEMP 98.7
[2021-12-19 11:23] VITALS: BP 133/67; O2SAT 98
--- NOTE | 2021-12-19 17:00 | RAD REPORT ---
EXAM DESCRIPTION: CT - Head Brain Wo Cont - 12/19/2021 6:02 am CLINICAL HISTORY: 50 years Male Delirium TECHNIQUE: Axial noncontrast CT head with coronal and sagittal reformats. All CT scans at this [facility] ity use dose modulation, iterative reconstruction, and/or weight based dosing when appropriate to red uce radiation dose to as low as reasonably achievable. COMPARISON: 12/06/2021. FINDINGS: Brain: Parenchymal volume loss. Chronic small vessel disease. No obvious large acute niko torial infarction. No intracranial hemorrhage, midline shift, mass or mass effect. Ventricles: No hydrocephalus. Orbits: Unremarkable. Sinuses: Visualized portions are clear. Mastoid: Clear. Osseous: Unremarkable. Soft tissues: Unremarkable. IMPRESSION: No acute findings. Electronically signed by: Todd Garcia MD 12/19/2021 1:14 AM CDT Due to temporary technical issues with the PACS/Fluency reporting system, reports are being signed by the in house radiologists without. review as a courtesy to insure prompt reporting. The interpreting radiologist is fully responsible for the content of the report.
== END 2021-12-19 11:06 | disposition home or self-care (01) ==
LOC: ER 21:28
DX: F10.229 Alcohol dependence with intoxication, unspecified (principal); F31.81 Bipolar II disorder; I10 Essential (primary) hypertension; G20 Parkinson's disease
CPT/HCPCS: 36415; 70450; 80048; 80076; 80320; 80329; 85025; 85610; 85730; J2405; J3411; J7030

== ENCOUNTER 2021-12-21 21:40 | Inpatient (IN) | payer SELFPAY ==
[2021-12-21 22:30] LABS: Urine Blood Negative (Negative); Urine Glucose Negative (Negative); Urine Protein 1+ (Negative); Urine Specific Gravity >=1.030 (1.005-1.030); Urine pH 5.5 (5.0-7.0)
[2021-12-21 22:32] LABS: Absolute Lymphocytes (CBC) 1.3 K/uL (0.7-4.9); Lymphocytes % 17.5 % (15.3-44.8); MPV 7.2 fL (7.6-11.3)
[2021-12-21 22:39] LABS: Protime INR 0.96
[2021-12-21 22:46] LABS: Barbiturates NEGATIVE (NEGATIVE); Benzodiazepines POSITIVE (NEGATIVE); Cocaine NEGATIVE (NEGATIVE); METHAMPHETAM POSITIVE (NEGATIVE); Methadone NEGATIVE (NEGATIVE); Opiates NEGATIVE (NEGATIVE); Phencyclidine NEGATIVE (NEGATIVE); THC Cannibis POSITIVE (NEGATIVE)
[2021-12-21] MEDS ORDERED: THIAMINE 200 MG/2 ML INJ ONE (22:50)
[2021-12-21] MEDS ORDERED: MULTIVITAMINS 10 ML VIAL (INJ) IV ONE (22:50)
[2021-12-21] MEDS ORDERED: FAMOTIDINE 20 MG/2 ML VIAL IV ONE (22:50)
[2021-12-21] MEDS ORDERED: NA CHLORIDE 0.9% 1,000 ML ONE (22:51)
[2021-12-21] MEDS ORDERED: FOLIC ACID 5 MG/ML VIAL ONE (22:51)
[2021-12-21 22:54] LABS: ALT/SGPT 57 U/L (12-78); AST/SGOT 64 U/L (15-37); Albumin 4.3 g/dL (3.4-5.0); Alkaline Phosphatase 118 U/L (45-117); BUN Blood Urea Nitrogen 7 mg/dL (7-18); Bicarbonate 27 mmol/L (21-32); Bilirubin Direct 0.4 mg/dL (0-0.2); Bilirubin Total 1.1 mg/dL (0.2-1.0); Glomerular Filtration Rate 108 ml/min (=/>90); Glucose Level 117 mg/dL (74-106); Lipase 618 U/L (73-393); Magnesium 2.1 mg/dL (1.8-2.4); NT PRO-BNP 114 pg/mL (<125); Potassium 3.9 mmol/L (3.5-5.1); Protein, Total 8.5 g/dL (6.4-8.2); Sodium Level 132 mmol/L (136-145); Troponin High Sensitivity 15.6 pg/mL (<58.9)
--- NOTE | 2021-12-22 03:33 | RAD REPORT ---
EXAM DESCRIPTION: CTAbdomen Pelvis W Contrast - 12/22/2021 1:33 am CLINICAL HISTORY: Pancreatitis, acute, severe COMPARISON: <Comparisons> TECHNIQUE: CT of the abdomen and pelvis was performed with contrast. All CT scans are performed using dose optimization technique as appropriate and may include automated exposure control or mA/KV adjustment according to patient size. FINDINGS: Lower chest: Multi-vessel coronary artery disease. Liver: Hepatic steatosis Biliary: No biliary ductal dilatation. Stomach: No significant focal abnormality. Duodenum: No significant focal abnormality. Pancreas: Atrophic pancreas. Mild peripancreatic edema Spleen: No significant abnormality. Adrenal: No suspicious lesions. Kidney/ureter: No hydronephrosis. No renal calculi. Retroperitoneum: No retroperitoneal adenopathy. Vascular: No aneurysm. Bowel: No significant focal abnormality. Peritoneum: No ascites or free air. Fat containing left inguinal hernia. Bladder: Nonspecific circumferential bladder wall thickening. Reproductive: No adnexal masses. Bones: No acute fracture. Multilevel degenerative changes are present in the spine. Other: n/a IMPRESSION: Mild peripancreatic edema consistent with acute pancreatitis. No complicating features.
--- NOTE | 2021-12-22 03:36 | ER ---
Nurse's Notes [facility] Name: Walt Velazquez Age: 51 yrs Sex: Male : 1970 Arrival Date: 12/21/2021 Time: 21:43 Bed 8 Private MD: Diagnosis: Biliary acute pancreatitis-ALCOHOLIC;Alcohol abuse;Alcohol abuse with intoxication;Chest pain, unspecified;Abuse of other non-psychoactive substances;Adverse effect of amphetamines Presentation: 12/21 21:44 Chief complaint: EMS states: pt has had chest pain all day, given aspirin 324mg by ems. 5 Coronavirus screen: Vaccine status: Patient reports being unvaccinated. Ebola Screen: No symptoms or risks identified at this time. Initial Sepsis Screen: Does the patient meet any 2 criteria? No. Patient's initial sepsis screen is negative. Does the patient have a suspected source of infection? No. Patient's initial sepsis screen is negative. Risk Assessment: Do you want to hurt yourself or someone else? Patient reports no desire to harm self or others. Onset of symptoms was December 21, 2021. 21:44 Method Of Arrival: EMS: [facility]5 21:44 Acuity: LATASHA 3 5 Triage Assessment: 21:47 General: Appears in no apparent distress. Behavior is appropriate for age. Pain: sm5 Complains of pain in chest. Neuro: Level of Consciousness is awake, alert, obeys commands, Oriented to person, place, time, situation. Cardiovascular: Reports chest pain, Capillary refill < 3 seconds Patient's skin is warm and dry. Respiratory: Airway is patent Trachea midline Respiratory effort is even, unlabored. Historical: - Allergies: 21:46 No Known Allergies; sm5 - PMHx: 21:46 Alcoholism; Bipolar II; Hypertensive disorder; Parkinsons; Seizure; sm5 - Immunization history:: Client reports having NOT received the Covid vaccine. - Social history:: Smoking status: Patient reports the use of cigarette tobacco products, smokes one-half pack cigarettes per day, Patient uses alcohol, "2 cases of beer a day". - Family history:: not pertinent. Screenin:47 Abuse screen: Denies threats or abuse. Denies injuries from another. Nutritional sm5 screening: No deficits noted. Tuberculosis screening: No symptoms or risk factors identified. Fall Risk None identified. Assessment: 22:00 General: Appears in no apparent distress. comfortable, Behavior is calm, cooperative, jb4 appropriate for age. Pain: Complains of pain in right eye, left eye, chest and right foot Pain does not radiate. Pain currently is 8 out of 10 on a pain scale. Neuro: Level of Consciousness is awake, alert, obeys commands, Oriented to person, place, time, situation. Cardiovascular: Patient's skin is warm and dry. Respiratory: Airway is patent Respiratory effort is even, unlabored, Respiratory pattern is regular, symmetrical. Derm: Skin is intact, Skin is pink, warm \\T\\ dry. Musculoskeletal: Circulation, motion, and sensation intact. Range of motion: intact in all extremities. 23:00 Reassessment: Patient appears in no apparent distress at this time. Patient and/or jb4 family updated on plan of care and expected duration. Pain level reassessed. Patient is alert, oriented x 3, equal unlabored respirations, skin warm/dry/pink. 12/22 00:00 Reassessment: Patient appears in no apparent distress at this time. Patient and/or jb4 family updated on plan of care and expected duration. Pain level reassessed. Patient is alert, oriented x 3, equal unlabored respirations, skin warm/dry/pink. 01:00 Reassessment: Patient appears in no apparent distress at this time. Patient and/or jb4 family updated on plan of care and expected duration. Pain level reassessed. Patient is alert, oriented x 3, equal unlabored respirations, skin warm/dry/pink. 02:00 Reassessment: Patient appears in no apparent distress at this time. Patient and/or jb4 family updated on plan of care and expected duration. Pain level reassessed. Patient is alert, oriented x 3, equal unlabored respirations, skin warm/dry/pink. 03:00 Reassessment: Patient appears in no apparent distress at this time. Patient and/or jb4 family updated on plan of care and expected duration. Pain level reassessed. Patient is alert, oriented x 3, equal unlabored respirations, skin warm/dry/pink. 04:00 Reassessment: Patient appears in no apparent distress at this time. Patient and/or jb4 family updated on plan of care and expected duration. Pain level reassessed. Patient is alert, oriented x 3, equal unlabored respirations, skin warm/dry/pink. 04:50 General: Reports "I want to leave, you cannot take my Beer, I have drank a whole 6 pack tw5 and smoked crack in this hospital before, fuck you.". Vital Signs: 12/21 21:44 BP 127 / 85; Pulse 95; Resp 18; Temp 98.8(O); Pulse Ox 97% on R/A; Pain 8/10; sm5 22:30 BP 139 / 94; Pulse 83; Resp 13; Pulse Ox 95% on R/A; jb4 23:15 BP 139 / 89; Pulse 83; Resp 11; Pulse Ox 98% on R/A; jb4 12/22 00:00 BP 123 / 84; Pulse 80; Resp 12; Pulse Ox 99% on R/A; jb4 00:45 BP 125 / 81; Pulse 89; Resp 13; Pulse Ox 98% on R/A; jb4 02:15 BP 145 / 89; Pulse 81; Resp 16; Pulse Ox 99% on R/A; jb4 03:15 BP 130 / 84; Pulse 79; Resp 16; Pulse Ox 99% on R/A; jb4 04:00 BP 153 / 99; Pulse 88; Resp 18; Pulse Ox 98% on R/A; jb4 ED Course: 12/21 21:43 Patient arrived in ED. 5 21:46 Triage completed. 5 21:47 Arm band placed on right wrist. 5 21:48 Patient has correct armband on for positive identification. Bed in low position. Call sm5 light in reach. Side rails up X2. 21:49 Deandre Mckeon MD is Attending Physician. [facility] 21:55 Bj Sweeney, RN is Primary Nurse. jb4 22:23 XRAY Chest (1 view) In Process Unspecified. EDMS 22:32 Basic Metabolic Panel Sent. jb4 22:32 CBC with Diff Sent. jb4 22:32 LFT's Sent. jb4 22:32 Troponin HS Sent. jb4 22:32 PT-INR Sent. jb4 22:32 NT PRO-BNP Sent. jb4 22:32 Magnesium Sent. jb4 22:32 Acetaminophen Sent. jb4 22:33 ETOH Level Sent. jb4 22:33 Ptt, Activated Sent. jb4 22:33 Salicylate Sent. jb4 22:33 Urine Drug Screen Sent. jb4 22:33 Lipase Sent. jb4 22:33 SARS-COV-2 RT PCR (Document "Date of Onset" if Symptomatic) Sent. jb4 12/22 01:34 CT Abd/Pelvis - IV Contrast Only In Process Unspecified. EDNH 03:35 Finesse Mooney MD is Hospitalizing Provider. [facility] 04:54 No provider procedures requiring assistance completed. IV discontinued, intact, tw5 bleeding controlled, No redness/swelling at site. Pressure dressing applied. Administered Medications: 04:54 Discontinued: NS 0.9% 1000 ml IV at 1 bolus Per protocol; 1000 mL bolus tw12/21 22:55 Drug: Thiamine 100 mg Route: IV; Rate: bolus; Site: right antecubital; lp1 12/22 02:55 Follow up: Response: No adverse reaction; IV Status: Completed infusion jb4 04:58 Follow up: IV Status: Completed infusion 12/21 22:55 Drug: Banana Bag - (NS 0.9% 1000 ml, foLIC Acid 1 mg, Thiamine 100 mg, Multivitamin 1 lp1 amp) Route: IV; Rate: 125 ml/hr; Site: right antecubital; 12/22 04:54 Follow up: IV Status: Completed infusion 12/21 22:55 Drug: Pepcid (famotidine) 20 mg Route: IVP; Site: right antecubital; lp1 23:15 Follow up: Response: No adverse reaction 12/22 03:48 Drug: NS 0.9% 1000 ml Route: IV; Rate: 1 bolus; Site: right antecubital; jb4 04:54 Follow up: IV Intake: 300ml tw5 04:24 Drug: Motrin (ibuprofen) 400 mg Route: PO; jb4 04:54 Follow up: Response: No adverse reaction tw5 Medication: 12/21 21:48 VIS not applicable for this client. sm5 Intake: 12/22 04:54 IV: 300ml; Total: 300ml. tw5 Outcome: 03:36 Decision to Hospitalize by Provider. [facility] 04:00 AMA AMA form signed jb4 04:00 Condition: improved 04:56 Patient left the ED. jb4 Signatures: Dispatcher [employer] EDMS Deandre Mckeon MD MD cha Pena, Laura RN RN lp1 Bj Sweeney RN RN jb4 Maria L Keyes tw5 Leonora Mendoza, RN RN sm5
--- NOTE | 2021-12-22 03:37 | EDPHYS ---
Physician Documentation [facility] Name: Walt Velazquez Age: 51 yrs Sex: Male : 1970 Arrival Date: 12/21/2021 Time: 21:43 Bed 8 Private MD: ED Physician Deandre Mckeon HPI: 12/21 22:35 This 51 yrs old Male presents to ER via EMS with complaints of CP, bridgette INTOXICATION. 22:35 The patient or guardian reports chest pain that is located primarily in the anterior bridgette chest wall, bilaterally. Onset: just prior to arrival. INTOXICATION. The pain does not radiate. Onset: The symptoms/episode began/occurred 1 day(s) ago. The chest pain is described as aching. Severity of pain: At its worst the pain was mild in the emergency department the pain is unchanged. Historical: - Allergies: 21:46 No Known Allergies; sm5 - PMHx: 21:46 Alcoholism; Bipolar II; Hypertensive disorder; Parkinsons; Seizure; sm5 - Immunization history:: Client reports having NOT received the Covid vaccine. - Social history:: Smoking status: Patient reports the use of cigarette tobacco products, smokes one-half pack cigarettes per day, Patient uses alcohol, "2 cases of beer a day". - Family history:: not pertinent. ROS: 22:35 Constitutional: Negative for fever, chills, and weight loss, Eyes: Negative for injury, bridgette pain, redness, and discharge, ENT: Negative for injury, pain, and discharge, Neck: Negative for injury, pain, and swelling, Cardiovascular: Negative for chest pain, palpitations, and edema, Respiratory: Negative for shortness of breath, cough, wheezing, and pleuritic chest pain, Abdomen/GI: Negative for abdominal pain, nausea, vomiting, diarrhea, and constipation, Back: Negative for injury and pain, MS/Extremity: Negative for injury and deformity, Skin: Negative for injury, rash, and discoloration, Psych: Negative for depression, anxiety, suicide ideation, homicidal ideation, and hallucinations, Allergy/Immunology: Negative for hives, rash, and allergies, Endocrine: Negative for neck swelling, polydipsia, polyuria, polyphagia, and marked weight changes, Hematologic/Lymphatic: Negative for swollen nodes, abnormal bleeding, and unusual bruising. 22:35 Neuro: Positive for gait disturbance. Exam: 22:35 Constitutional: This is a well developed, well nourished patient who is awake, alert, bridgette and in no acute distress. Head/Face: Normocephalic, atraumatic. Eyes: Pupils equal round and reactive to light, extra-ocular motions intact. Lids and lashes normal. Conjunctiva and sclera are non-icteric and not injected. Cornea within normal limits. Periorbital areas with no swelling, redness, or edema. ENT: Nares patent. No nasal discharge, no septal abnormalities noted. Tympanic membranes are normal and external auditory canals are clear. Oropharynx with no redness, swelling, or masses, exudates, or evidence of obstruction, uvula midline. Mucous membranes moist. Neck: Trachea midline, no thyromegaly or masses palpated, and no cervical lymphadenopathy. Supple, full range of motion without nuchal rigidity, or vertebral point tenderness. No Meningismus. Chest/axilla: Normal chest wall appearance and motion. Nontender with no deformity. No lesions are appreciated. Cardiovascular: Regular rate and rhythm with a normal S1 and S2. No gallops, murmurs, or rubs. Normal PMI, no JVD. No pulse deficits. Respiratory: Lungs have equal breath sounds bilaterally, clear to auscultation and percussion. No rales, rhonchi or wheezes noted. No increased work of breathing, no retractions or nasal flaring. Abdomen/GI: Soft, non-tender, with normal bowel sounds. No distension or tympany. No guarding or rebound. No evidence of tenderness throughout. Back: No spinal tenderness. No costovertebral tenderness. Full range of motion. Skin: Warm, dry with normal turgor. Normal color with no rashes, no lesions, and no evidence of cellulitis. MS/ Extremity: Pulses equal, no cyanosis. Neurovascular intact. Full, normal range of motion. Neuro: Awake and alert, GCS 15, oriented to person, place, time, and situation. Cranial nerves II-XII grossly intact. Motor strength 5/5 in all extremities. Sensory grossly intact. Cerebellar exam normal. Normal gait. Psych: Awake, alert, with orientation to person, place and time. Behavior, mood, and affect are within normal limits. 22:35 Musculoskeletal/extremity: DVT Exam: No signs of deep vein thrombosis. no pain, no swelling, no tenderness, negative Homans' sign noted on exam, no appreciated bluish discoloration, no erythema, no increased warmth. 23:09 ECG was reviewed by the Attending Physician. [facility] Vital Signs: 21:44 BP 127 / 85; Pulse 95; Resp 18; Temp 98.8(O); Pulse Ox 97% on R/A; Pain 8/10; sm5 22:30 BP 139 / 94; Pulse 83; Resp 13; Pulse Ox 95% on R/A; jb4 23:15 BP 139 / 89; Pulse 83; Resp 11; Pulse Ox 98% on R/A; jb4 12/22 00:00 BP 123 / 84; Pulse 80; Resp 12; Pulse Ox 99% on R/A; jb4 00:45 BP 125 / 81; Pulse 89; Resp 13; Pulse Ox 98% on R/A; jb4 02:15 BP 145 / 89; Pulse 81; Resp 16; Pulse Ox 99% on R/A; jb4 03:15 BP 130 / 84; Pulse 79; Resp 16; Pulse Ox 99% on R/A; jb4 04:00 BP 153 / 99; Pulse 88; Resp 18; Pulse Ox 98% on R/A; jb4 MDM: 12/21 21:49 Patient medically screened. bridgette 22:41 Differential diagnosis: acute myocardial infarction, acute pericarditis, anxiety, bridgette coronary artery disease Cholelithiasis hiatal hernia, pancreatitis, peptic ulcer disease, pneumonia, pulmonary embolus, stable angina, unstable angina. HEART Score: History: Slightly Suspicious (0), ECG: Normal (0), Age: > 45 and < 65 years (1), Risk Factors: 1 or 2 risk factors (1), [Hypertension] Troponin: < or = 1 x Normal Limit (0), Total Score = 95. The patient was given aspirin in the Emergency Department. The patient's deep vein thrombosis risk score was calculated as follows: Total Score: 0. This patient was found to be at low risk for a deep vein thrombosis by using the Well's assessment criteria. The patient's pulmonary embolism risk score was calculated as follows: Total Score: 0-2 points. This patient was found to be at low risk for a pulmonary embolism by using the Well's assessment criteria. ALEJANDRINA Risk Score: TOTAL SCORE = 0. Data reviewed: vital signs, nurses notes, lab test result(s), EKG, radiologic studies. Data interpreted: security monitor: rate is 95 beats/min, rhythm is regular, Pulse oximetry: on room air is 97 %. Test interpretation: by ED physician or midlevel provider: ECG, plain radiologic studies. 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 12/21 21:54 Order name: Basic Metabolic Panel; Complete Time: 23:26 [facility] 12/21 21:54 Order name: CBC with Diff; Complete Time: 22:52 [facility] 12/21 21:54 Order name: LFT's; Complete Time: 23:26 [facility] 12/21 21:54 Order name: Magnesium; Complete Time: 23:26 [facility] 12/21 21:54 Order name: NT PRO-BNP; Complete Time: 23:26 [facility] 12/21 21:54 Order name: PT-INR; Complete Time: 22:52 [facility] 12/21 21:54 Order name: Troponin HS; Complete Time: 23:26 [facility] 12/21 21:54 Order name: Lipase; Complete Time: 23:26 [facility] 12/21 21:54 Order name: Acetaminophen; Complete Time: 23:26 [facility] 12/21 21:54 Order name: ETOH Level; Complete Time: 23:26 [facility] 12/21 21:54 Order name: Ptt, Activated; Complete Time: 22:52 [facility] 12/21 21:54 Order name: Salicylate; Complete Time: 22:52 [facility] 12/21 21:54 Order name: Urine Drug Screen; Complete Time: 22:52 [facility] 12/21 21:54 Order name: SARS-COV-2 RT PCR (Document "Date of Onset" if Symptomatic); Complete Time: [facility] :58 12/21 21:54 Order name: XRAY Chest (1 view) [facility] 12/21 21:54 Order name: EKG; Complete Time: 21:54 [facility] 12/21 21:54 Order name: Cardiac monitoring; Complete Time: 21:58 [facility] 12/21 21:54 Order name: EKG - Nurse/Tech; Complete Time: 22:32 [facility] 12/21 21:54 Order name: IV Saline Lock; Complete Time: 22:32 [facility] 12/21 21:54 Order name: Labs collected and sent; Complete Time: 22:32 [facility] 12/21 21:54 Order name: O2 Per Protocol; Complete Time: 21:58 [facility] 12/21 21:54 Order name: O2 Sat Monitoring; Complete Time: 21:58 [facility] 12/21 22:30 Order name: Urine Dipstick-Ancillary; Complete Time: 22:52 [facility]MS 12/21 23:27 Order name: CT Abd/Pelvis - IV Contrast Only; Complete Time: 03:34 [facility] 12/22 00:52 Order name: Troponin High Sensitivity: 1 am please; Complete Time: 02:23 [facility] 12/21 21:54 Order name: Urine Dipstick-Ancillary (obtain specimen); Complete Time: 23:28 [facility] 12/22 01:16 Order name: Labs collected and sent; Complete Time: 01:46 lp1 EC:09 Rate is 80 beats/min. Rhythm is regular. QRS [place] is Normal. [place] interval is normal. QRS bridgette interval is normal. QT interval is normal. No Q waves. T waves are Normal. No ST changes noted. Clinical impression: Normal ECG and No evidence of ischemia. Interpreted by me. Reviewed by me. Administered Medications: 12/22 04:54 Discontinued: NS 0.9% 1000 ml IV at 1 bolus Per protocol; 1000 mL bolus 12/21 22:55 Drug: Thiamine 100 mg Route: IV; Rate: bolus; Site: right antecubital; lp1 12/22 02:55 Follow up: Response: No adverse reaction; IV Status: Completed infusion [facility] 04:58 Follow up: IV Status: Completed infusion 12/21 22:55 Drug: Banana Bag - (NS 0.9% 1000 ml, foLIC Acid 1 mg, Thiamine 100 mg, Multivitamin 1 lp1 amp) Route: IV; Rate: 125 ml/hr; Site: right antecubital; 12/22 04:54 Follow up: IV Status: Completed infusion 12/21 22:55 Drug: Pepcid (famotidine) 20 mg Route: IVP; Site: right antecubital; lp1 23:15 Follow up: Response: No adverse reaction 12/22 03:48 Drug: NS 0.9% 1000 ml Route: IV; Rate: 1 bolus; Site: right antecubital; jb4 04:54 Follow up: IV Intake: 300ml tw5 04:24 Drug: Motrin (ibuprofen) 400 mg Route: PO; jb4 04:54 Follow up: Response: No adverse reaction tw5 Disposition Summary: 12/22/21 03:36 Hospitalization Ordered Hospitalization Status: Inpatient Admission bridgette Provider: Finesse Mooney cha Condition: Fair bridgetet Problem: new bridgette Symptoms: have improved bridgette Bed/Room Type: Standard [facility] Location: [facility] ER HOLD(12/22/21 03:46) Room Assignment: ERHOLD-(12/22/21 03:46) Diagnosis - Biliary acute pancreatitis - ALCOHOLIC bridgette - Alcohol abuse bridgette - Alcohol abuse with intoxication bridgette - Chest pain, unspecified bridgette - Abuse of other non-psychoactive substances bridgette - Adverse effect of amphetamines bridgette Discharge Instructions: - Discharge Summary Sheet bridgette - Alcohol Intoxication bridgette - Nonspecific Chest Pain, Adult bridgette - Alcohol Intoxication, [id number] bridgette - Nonspecific Chest Pain, Adult, [id number] bridgette - Aspirin and Your Heart bridgette Forms: - Medication Reconciliation Form bridgette - SBAR form bridgette Prescriptions: - Pepcid 20 mg Oral Tablet - take 1 tablet by ORAL route every 12 hours for 15 days; 30 tablet; Refills: 0, bridgette Product Selection Permitted Signatures: Dispatcher [employer] EDMaría Elena Quiroga RN Deandre Herndon MD MD cha Pena, Laura, RN RN lp1 Bj Sweeney RN RN jb4 Leonora Mendoza RN RN frances5 Chiquita Noonan PA PA sb3 Maria L Keyes tw5 Corrections: (The following items were deleted from the chart) 12/21 23:29 21:54 Suicide Screening ([place]) ordered. [place] [id number] 12/22 03:46 03:36 Telemetry/MedSurg (Inpatient) [facility] 03:46 03:36 [facility]
[2021-12-22] MEDS ORDERED: NA CHLORIDE 0.9% 1,000 ML ONE (03:50)
[2021-12-22] MEDS ORDERED: IBUPROFEN 400 MG TAB ONE (04:09)
--- NOTE | 2021-12-22 04:14 | P.HP ---
Certification for Inpatient Patient admitted to: Inpatient With expected LOS: >2 Midnights Patient will require the following post-hospital care: None Practitioner: I am a practitioner with admitting privileges, knowledge of patient current condition, hospital course, and medical plan of care. Services: Services provided to patient in accordance with Admission requirements found in Title 42 Section 412.3 of the Code of Federal Regulations Patient History Date of Service: 12/22/21 Reason for admission: Alcoholic Pancreatitis History of Present Illness: Patient is a 51 /o M with PMH of hypertension, thrombocytopenia, seizure disorder, alcohol/drug abuse, bipolar disorder who presented to the ED via EMS with complaints of chest pain all day. EMS gave 324 mg aspirin en route. EKG without abnormalities. Troponin WNL. Other labs significant for Na 132, plt 132, AST 64, lipase 618, serum alcohol 118. Tox screen positive for THC, benzo, and methamphetamine, Patient reports that he drinks approx. 2 cases of beer a day and does whatever drugs he can get his hands on. CT abd pelv shows Mild peripancreatic edema consistent with acute pancreatitis. No complicating features. Patient was given banana bag, pepcid, ibuprofen, and additional IV fluids in the ED. ED provider wishes to admit patient for further evaluation and treatment. Allergies TRAZADONE Allergy (Uncoded 07/12/16 07:23) Unknown Trazodone Allergy (Uncoded 06/29/15 16:43) Unknown Home medications list reviewed: Yes Home Medications: Metoprolol Tartrate [Lopressor*] 25 mg PO BID #60 tab 07/05/16 Multivit,Ther Iron,Ca,FA & Min [Centrum Tablet*] 1 tab PO DAILY #90 tab 07/05/16 Pantoprazole [Protonix Tab*] 40 mg PO DAILYAC #30 tab 07/05/16 Phenytoin Sodium Extended [Dilantin] 100 mg PO TID #90 capsule 07/05/16 Thiamine HCl [Vitamin B-1*] 100 mg PO DAILY #30 tablet 07/05/16 chlordiazePOXIDE HCl [Librium*] 25 mg PO SEECOM #70 cap 07/05/16 risperiDONE [Risperdal 1 mg tab*] 2 mg PO DAILY #30 tab 07/05/16 - Past Medical/Surgical History Diabetic: No -: Bipolar disorder -: GERD -: Seizure disorder from previous head trauma -: Alcohol abuse -: Hypertension -: 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 He does not work - Family History Family History: Reviewed- Non-Contributory - Social History Smoking Status: Current every day smoker Alcohol use: Yes CD- Drugs: Yes Caffeine use: Yes Place of Residence: Home Review of Systems 10-point ROS is otherwise unremarkable Cardiovascular: Chest Pain Physical Examination - Physical Exam General: Alert, In no apparent distress HEENT: Atraumatic, PERRLA, EOMI, Sclerae nonicteric Neck: Supple, 2+ carotid pulse no bruit, No LAD, Without JVD or thyroid abnormality Respiratory: Clear to auscultation bilaterally, Normal air movement Cardiovascular: Regular rate/rhythm, Normal S1 S2 Gastrointestinal: Normal bowel sounds, No tenderness Musculoskeletal: No tenderness Integumentary: No rashes Neurological: Normal speech, Normal strength at 5/5 x4 extr, Normal tone, Normal affect, Abnormal gait - Studies Laboratory Data (last 24 hrs) 12/21/21 22:20: PT 10.5, INR 0.96, APTT 31.5 12/21/21 22:20: WBC 7.4 D, Hgb 15.9, Hct 48.0, Plt Count 132 L D 12/21/21 22:20: Sodium 132 L, Potassium 3.9, BUN 7, Creatinine 0.76, Glucose 117 H, Magnesium 2.1, Total Bilirubin 1.1 H, AST 64 H, ALT 57, Alkaline Phosphatase 118 H, Lipase 618 H Assessment and Plan - Problems (Diagnosis) (1) Acute alcoholic pancreatitis Current Visit: Yes Status: Acute Qualifiers: Acute pancreatitis complication: no infection or necrosis Qualified Code(s): K85.20 - Alcohol induced acute pancreatitis without necrosis or infection (2) Drug abuse Current Visit: Yes Status: Acute (3) Alcohol abuse Current Visit: Yes Status: Chronic (4) Seizure disorder Current Visit: Yes Status: Chronic (5) Bipolar disorder Current Visit: Yes Status: Chronic Qualifiers: Active/Remission status: remission status unspecified Qualified Code(s): F31.9 - Bipolar disorder, unspecified (6) Fatty liver Current Visit: Yes Status: Chronic (7) GERD (gastroesophageal reflux disease) Current Visit: Yes Status: Chronic Qualifiers: Esophagitis presence: without esophagitis Qualified Code(s): K21.9 - Gastro-esophageal reflux disease without esophagitis (8) Hypertension Current Visit: Yes Status: Chronic Qualifiers: Hypertension type: primary hypertension Qualified Code(s): I10 - Essential (primary) hypertension (9) Thrombocytopenia Current Visit: Yes Status: Chronic - Plan -Cont IVF. Thiamine, folic acid, multivitamin daily -Clear liquid diet, advance as tolerated -DT prophylactic medications ordered as patient is high risk for alcohol withdrawal -Alcohol withdrawal protocol and seizure precautions in place -Monitor and replete electrolytes per protocol -Reconcile and continue home medications -Lovenox for VTE ppx -Full code Discharge Plan: Home Plan to discharge in: Greater than 2 days - Advance Directives Does patient have a Living Will: No Does patient have a Durable POA for Healthcare: No - Code Status/Comfort Care Code Status Assessed: Yes (Full) Critical Care: No Time Spent Managing Pts Care (In Minutes): 70
--- NOTE | 2021-12-22 04:58 | P.DS ---
Admission Date: 12/22/21 Discharge Date: 12/22/21 Disposition: AMA-LEFT AGAINST MEDICAL ADVIC Discharge Condition: FAIR Reason for Admission: Alcoholic Pancreatitis - Problems (1) Acute alcoholic pancreatitis Current Visit: Yes Status: Acute Qualifiers: Acute pancreatitis complication: no infection or necrosis Qualified Code(s): K85.20 - Alcohol induced acute pancreatitis without necrosis or infection (2) Drug abuse Current Visit: Yes Status: Acute (3) Alcohol abuse Current Visit: Yes Status: Chronic (4) Seizure disorder Current Visit: Yes Status: Chronic (5) Bipolar disorder Current Visit: Yes Status: Chronic Qualifiers: Active/Remission status: remission status unspecified Qualified Code(s): F31.9 - Bipolar disorder, unspecified (6) Fatty liver Current Visit: Yes Status: Chronic (7) GERD (gastroesophageal reflux disease) Current Visit: Yes Status: Chronic Qualifiers: Esophagitis presence: without esophagitis Qualified Code(s): K21.9 - Gastro-esophageal reflux disease without esophagitis (8) Hypertension Current Visit: Yes Status: Chronic Qualifiers: Hypertension type: primary hypertension Qualified Code(s): I10 - Essential (primary) hypertension (9) Thrombocytopenia Current Visit: Yes Status: Chronic Brief History of Present Illness: Patient is a 51 /o M with PMH of hypertension, thrombocytopenia, seizure disorder, alcohol/drug abuse, bipolar disorder who presented to the ED via EMS with complaints of chest pain all day. EMS gave 324 mg aspirin en route. EKG without abnormalities. Troponin WNL. Other labs significant for Na 132, plt 132, AST 64, lipase 618, serum alcohol 118. Tox screen positive for THC, benzo, and methamphetamine, Patient reports that he drinks approx. 2 cases of beer a day and does whatever drugs he can get his hands on. CT abd pelv shows Mild peripancreatic edema consistent with acute pancreatitis. No complicating features. Patient was given banana bag, pepcid, ibuprofen, and additional IV fluids in the ED. ED provider wishes to admit patient for further evaluation and treatment. Hospital Course: 20 minutes after I admitted patient, he got frustrated and decided to leave AMA. He was unhappy that nursing staff took away his beer and cigarettes. He was informed that he would get them back upon discharge but he was not satisfied with that answer. Discussed his condition and why he needed to stay in the hospital. He cussed at the nursing staff and signed out AMA. Laboratory Data at Discharge: WBC 7.4 K/uL (4.3-10.9) D 12/21/21 22:20 Hgb 15.9 g/dL (13.6-17.9) 12/21/21 22:20 Hct 48.0 % (39.6-49.0) 12/21/21 22:20 Plt Count 132 K/uL (152-406) L D 12/21/21 22:20 PT 10.5 SECONDS (9.5-12.5) 12/21/21 22:20 INR 0.96 12/21/21 22:20 APTT 31.5 SECONDS (24.3-36.9) 12/21/21 22:20 Sodium 132 mmol/L (136-145) L 12/21/21 22:20 Potassium 3.9 mmol/L (3.5-5.1) 12/21/21 22:20 BUN 7 mg/dL (7-18) 12/21/21 22:20 Creatinine 0.76 mg/dL (0.55-1.3) 12/21/21 22:20 Glucose 117 mg/dL (74-106) H 12/21/21 22:20 Magnesium 2.1 mg/dL (1.8-2.4) 12/21/21 22:20 Total Bilirubin 1.1 mg/dL (0.2-1.0) H 12/21/21 22:20 AST 64 U/L (15-37) H 12/21/21 22:20 ALT 57 U/L (12-78) 12/21/21 22:20 Alkaline Phosphatase 118 U/L (45-117) H 12/21/21 22:20 Lipase 618 U/L (73-393) H 12/21/21 22:20 Home Medications: Metoprolol Tartrate [Lopressor*] 25 mg PO BID #60 tab 07/05/16 Multivit,Ther Iron,Ca,FA & Min [Centrum Tablet*] 1 tab PO DAILY #90 tab 07/05/16 Pantoprazole [Protonix Tab*] 40 mg PO DAILYAC #30 tab 07/05/16 Phenytoin Sodium Extended [Dilantin] 100 mg PO TID #90 capsule 01/14/17 Thiamine HCl [Vitamin B-1*] 100 mg PO DAILY #30 tablet 07/05/16 chlordiazePOXIDE HCl [Librium*] 25 mg PO SEECOM #70 cap 07/05/16 risperiDONE [Risperdal 1 mg tab*] 2 mg PO DAILY #30 tab 07/05/16 Followup: NONE,NONE [Primary Care Provider] -
[2021-12-22 05:08] VITALS: TEMP 98.8
[2021-12-22 05:21] VITALS: BP 153/99; O2SAT 98
--- NOTE | 2021-12-23 14:36 | RAD REPORT ---
EXAM DESCRIPTION: RAD - Chest Single View - 12/21/2021 10:22 pm CLINICAL HISTORY: Cough, chest pain COMPARISON: Two view chest April 2018 TECHNIQUE: AP portable chest image was obtained 12/21/2021 10:22 pm . FINDINGS: No mass or consolidations is seen. No failure or volume overload findings. Very slight inc reased stranding of the right lung base is believed to be the affects of atelectasis from shallow ins piration. Heart and vasculature are normal. No measurable pleural effusion and no pneumothorax. No ac tomas bony abnormality seen. No acute aortic findings suspected. IMPRESSION: No acute cardiopulmonary process.
--- NOTE | 2021-12-24 12:49 | EKG ---
Test Date: 2021-12-21 Test Time: 22:17:13 [employer] Clerk: DUANE MEASUREMENT RESULTS: Intervals: Rate: 80 GA: 156 QRSD: 76 QT: 344 QTc: 396 [place]: P: 47 GA: 156 QRS: 43 T: 36 INTERPRETIVE STATEMENTS: Normal sinus rhythm Normal ECG Compared to ECG 12/06/2021 09:09:11 No significant changes Electronically Signed On 12-24-21 12:47:30 CDT by Cristhian Hernandez
--- OUTSIDE RECORDS SUMMARY | 2022-01-08 08:00 | XMS REPORT | Continuity of Care Document ---
:1970 Author Organization [facility] t Address [facility]3 [address] [place] [address] Care Team Providers Name Role Phone Pcp-None Primary Care Physician Unavailable Faye Portillo LVN Attending Clinician JESSICA PRADO Attending Clinician Unavailable Pia Reddy Attending Clinician Jessica Prado MD Attending Clinician Vinnie Navarro Attending Clinician Unavailable JESSICA PRADO Admitting Clinician Unavailable Jessica Prado MD Admitting Clinician Payers Payer Name Policy Type Policy Number Effective Date Expiration Date S ource Problems Condition Condition Condition Status Onset Resolution Last Treating Co mments Source Name Details Category Date Date Treatment Clinician Date Type 2 Type 2 Disease Active Univers diabetes diabetes 7-10 ity of mellitus mellitus 00:00: [place] with other with other 00 Me dical specified specified Bran ch complicati complicati on on Dyslipidem Dyslipidem Disease Active U nivers ia ia 7-10 ity of 00:00: [place] 00 Medical Branch Chest Chest Disease Active Univers pain, pain, 7-09 ity of unspecif[place] d type 00 Medical [place] Priapism Priapism Disease Active 2013-06 Unive rs 1-06 ity of 00:00: [place] 00 Medical Branch Allergies, Adverse Reactions, Alerts Allergy Allergy Status Severity Reaction(s) Onset Inactive Treating Comm ents Source Name Type Date Date Clinician No Known DA Active U [facility] 3-29 Allergie 00:00: s 00 No Known DA Active U 2019-06 [facility] 2-16 Allergie 00:00: s 00 No Known DA Active U 2019-06 [facility] 2-15 Allergie 00:00: s 00 No Known DA Active U 2019-06 [facility] 2-02 Allergie 00:00: s 00 Trazodon Propensi Active Other - See U nivers e ty to comments 17 ity of adverse 00:00: [place] reaction 00 [facility] [place] TRAZODON DRUG Active Other-Cmnt Univ ers E INGREDI 4-17 ity of 00:00: [place] 00 Medical Branch Social History Social Habit Start Date Stop Date Quantity Comments Source History of Smokes tobacco University of tobacco use daily [facility] Exposure to 2021-12-18 2021-12-28 Not sure [facility] SARS-CoV-2 00:00:00 14:58:00 [facility] (event) Branch Tobacco use and 2021-12-28 2021-12-28 Smokeless tobacco Un iversity of exposure 00:00:00 00:00:00 non-user [facility] Alcohol intake 2021-12-28 2021-12-28 Current drinker Unive rsity of 00:00:00 00:00:00 of alcohol [facility] (finding) [place] Tobacco Comment 2021-12-28 2021-12-28 1/2 a pack a day Uni versity of 00:00:00 00:00:00 [facility] Sex [birth year] Universit y of 00:00:00 00:00:00 [facility] Smoking Status Start Date Stop Date Source Smokes tobacco daily 2021-12-28 00:00:00 Univers ity of [facility] Medications Ordered Filled Start Stop Current Ordering Indication Dosage Frequency Signature Comments Components Source Medication Medication Date Date Medication? Clinician (SIG) Name Name oxazepam 2021- 15mg 15 mg, Univer s (SERAX) 12-3113 Oral, Q12H ity o f capsule 15 06:28: 06:29 [place] 2 [place] 17 :00 doses, Medical First dose Branch on Thu12/31/21 at 0130, Last dose on Thu12/31/21 at 1330, Routine multivitami 2021-0 Yes [id number] 1{tbl} Take 1 Univers n tablet 12-31 [id number] tablet by ity of 00:00: mouth in [place] the morning. Branch thiamine 2021-0 Yes [id number] 100mg Take 1 Univers 100 mg 12-31 [id number] tablet by ity of tablet 00:00: mouth in [place] the Medical morning. Branch aspirin 81 0 Yes [id number] 81mg Take 1 Univers mg chewable 12-31 [id number] tablet by i ty of tablet 00:00: mouth in [place] the morning. Branch multivitami 2021-0 Yes [id number] 1{tbl} Take 1 Univers n tablet 12-31 [id number] tablet by ity of 00:00: mouth in [place] the morning. Branch thiamine 2021-0 Yes [id number] 100mg Take 1 Univers 100 mg 12-31 [id number] tablet by ity of tablet 00:00: mouth in [place] the morning. Branch aspirin 81 0 Yes [id number] 81mg Take 1 Univers mg chewable 12-31 [id number] tablet by i ty of tablet 00:00: mouth in [place] the morning. Branch foLIC acid 0 2021- Yes [id number] 1mg Take 1 Univers 1 mg tablet 12-31 [id number] tablet by ity of 00:00: 04:59 mouth in [place] 00 :00 the Medical morning Branch for 30 days. foLIC acid 2021-0 2021- Yes [id number] 1mg Take 1 Univers 1 mg tablet 12-31 [id number] tablet by ity of 00:00: 04:59 mouth in [place] 00 :00 the Medical morning Branch for 30 days. metFORMIN 2021-0 Yes [id number] 500mg Take 1 Univers 500 mg 12-30 [id number] tablet by ity of tablet 00:00: mouth in [place] [address] the Medical morning Branch and 1 tablet in the evening. Take with meals. metFORMIN 2021-0 Yes [id number] 500mg Take 1 Univers 500 mg 12-30 [id number] tablet by ity of tablet 00:00: mouth in [place] 00 the Medical morning Branch and 1 tablet in the evening. Take with meals. aspirin Yes 81mg 81 mg, Univers chewable -10 Oral, ity of tablet 81 14:00: DAILY, [place] mg 00 First dose Medical on [facility] 12/29/21 at 0900, Until Discontinu ed, Routine sulfur 2021- No [id number] 5mL 5 mL, Unive rs hexafluorid 12-29 Intravenou i ty of e microsphr 13:45: 13:45 s, ONCE, 1 [place] (LUMASON) 00 :00 dose, On Medica l injection 5 [facility] mL 12/29/21 at 0845, Routine
prepared foods service team member approving Restricted medication : STEFANIE GORMAN enoxaparin Yes 40mg 40 mg, Unive rs (LOVENOX) 12-29 Subcutaneo ity of injection 13:00: us, Q24H, [place] 40 mg 00 First dose Medical on [facility] 12/29/21 at 0800, Until Discontinu ed, Routine Sliding Yes Subcutaneo Univ ers Scale 7-10 us, TID ity of Insulin - 13:00: MEALS+HS, [place] Lispro 00 First dose Medical (HumaLOG) + on [facility] Fsbg 12/29/21 at Testing 0800, Until Discontinu ed, Routine diazePAM 2021- No 10mg 10 mg, Univer s (VALIUM) 12-29 07-10 Intravenou ity of injection 05:30: 04:40 s, ONCE, 1 [place] 10 mg 00 :00 dose, On [facility] 12/29/21 at 0030, Routine diazePAM 2021- No 10mg 10 mg, Univer s (VALIUM) 12-29 07-10 Intravenou ity of injection 04:15: 03:17 s, ONCE, 1 [place] 10 mg 00 :00 dose, On [facility] 12/28/21 Branch at 2315, Routine diazePAM Yes 5mg 5 mg, Univers (VALIUM) 7-10 Intravenou ity o f injection 5 03:45: s, QIDPRN, [place] mg 01 Starting Medical on [facility] Branch 12/28/21 at 2245, Until Discontinu ed, Routine, Seizures, Agitation foLIC acid 2021-0 Yes 1mg 1 mg, Univer s (FOLATE) 7-10 Oral, ity of tablet 1 mg 03:45: DAILY, [place] 00 First dose Medical on [facility] Branch 12/28/21 at 2245, Until Discontinu ed, Routine thiamine 2021-0 Yes 100mg 100 mg, Unive rs (VITAMIN 7-10 Oral, ity of B1) tablet 03:45: DAILY, [place] 100 mg 00 First dose Medical (after [place] last modificati on) on [facility] 12/28/21 at 2245, Until Discontinu ed, Routine glucagon 2021-0 Yes 1mg 1 mg, Univers (GLUCAGEN 7-10 Intramuscu ity of DIAGNOSTIC 03:42: lar, PRN, [place] KIT) 19 Starting Medical injection 1 on [facility] Branch 12/28/21 at 2242, Until Discontinu ed, JACIEL, Blood Glucose < or = 70 mg/dL and patient is unable to swallow or has mental changes. dextrose 2021-0 Yes 250mL 250 mL, IV Un lorena 10% (D10W) 7-10 Infusion, ity of bolus 03:42: PRN - SEE [place] infusion 19 INSTRUCTIO Medic al 250 mL NS, Branch Administer over 60 Minutes, Other, If blood glucose is < or = 70 mg/dL and patient is unable to swallow or has mental status changes, Starting on [facility] 12/28/21 at 2242
If blood glucose is < or = 70 mg/dL and patient is unable to swallow or has mental status changes (Give glucagon order if patient needs fluid restrictio n): IF IV access available: Dextrose 10%. 1. 125 mL (? bag) of D10W IV infusion - equivalent to 12.5 g dextrose 2. Blood glucose - draw blood glucose 15 minutes after D10W Administra tion. 3. If blood glucose is < 80 mg/dL, repeat.
LORazepam 2021-0 2022- No 1mg 1 mg, Univer s (ATIVAN) 7-10 07-10 Intravenou ity of injection 1 03:30: 02:32 s, ONCE, 1 [place] mg 00 :00 dose, On Medical [facility] 12/28/21 Branch at 2230, Routine
Is the medication being used for status epilepticu s? No oxazepam Yes 15mg 15 mg, Univers (SERAX) 7-10 Oral, ity of capsule 15 00:28: Q4HPRN, [place] mg 20 Starting Medical on [facility] Branch 12/28/21 at 1928, Until Discontinu ed, Routine, Only while awake for DBP equal to or greater than 100, HR equal to or greater than 100. ondansetron Yes 4mg 4 mg, Slow Univers (ZOFRAN 7-10 IV Push, ity of (PF)) 00:23: Q6HPRN, [place] injection 4 47 Starting Medi yudy mg on [facility] Branch 12/28/21 at 1923, Until Discontinu ed, Routine, Nausea and Vomiting (N/V) acetaminoph Yes 650mg 650 mg, Un lorena en 7-10 Oral, ity of (TYLENOL) 00:23: Q6HPRN, [place] tablet 650 37 Starting Medic al mg on [facility] Branch 12/28/21 at 1923, Until Discontinu ed, Routine, Pain (scale 1-3), Temp > 38.5 C chlordiazeP 2021- No 25mg 25 mg, Uni vers OXIDE 12-28 Oral, ity of (LIBRIUM) 23:15: 23:24 ONCE, 1 [place] capsule 25 00 :00 dose, On Medic al mg [facility] 12/28/21 Branch at 1815, JACIEL NaCl 0.9% 2021- No 2000mL at 999 Uni vers (NS) bolus 12-28 mL/hr, ity of infusion 22:45: 23:18 2,000 mL, [place] 2,000 mL 00 :00 IV Medical Infusion, Branch ONCE, 1 dose, On [facility] 12/28/21 at 1745, JACIEL LORazepam 0 2021- No 1mg 1 mg, Slow U nivers (ATIVAN) 12-28 IV Push, ity of injection 1 20:45: 20:49 ONCE, 1 [place] mg 00 :00 dose, On Medical 12/28/21 Branch at 1545, STAT
Is the medication being used for status epilepticu s? No acetaminoph 2015-0 Yes 500mg Take 1 Tab Univers en 4-17 by mouth ity of (TYLENOL) 00:00: every 6 [place] 500 mg 00 (six) Medical tablet hours as Branch needed for Pain. acetaminoph 2015-0 Yes 500mg Take 1 Tab Univers en 4-17 by mouth ity of (TYLENOL) 00:00: every 6 [place] 500 mg 00 (six) Medical tablet hours as Branch needed for Pain. Vital Signs Vital Name Observation Time Observation Value Comments Source Systolic blood 2021-12-30 20:52:00 134 mm[Hg] [facility] Diastolic blood 2021-12-30 20:52:00 76 mm[Hg] [facility] Heart rate 2021-12-30 20:52:00 67 /min [facility] Body temperature 2021-12-30 20:26:00 36.67 [facility] Oxygen saturation in 2021-12-30 20:26:00 99 /min [facility] Arterial blood by [facility] Pulse oximetry [place] Respiratory rate 2021-12-30 16:21:00 18 /min [facility] Body weight 2021-12-30 08:27:00 60.464 kg [facility] BMI 2021-12-30 08:27:00 23.61 kg/m2 [facility] Body height 2021-12-29 01:29:00 160 cm [facility] Procedures Procedure Date / Time Performing Clinician Source Performed POCT GLUCOSE (AUTOMATED) 2021-12-30 21:55:00 Jessica Prado [facility] POCT GLUCOSE (AUTOMATED) 2021-12-30 16:21:00 Jessica Prado [facility] POCT GLUCOSE (AUTOMATED) 2021-12-30 12:30:00 Jessica Prado [facility] HEPATIC FUNCTION PANEL 2021-12-30 09:28:00 Maira Gaitan [facility] ([id number]) (ALB,T.PRO,BILI Medical Branch T,BU/BC,ALT,AST,ALK PHOS) POCT GLUCOSE (AUTOMATED) 2021-12-30 02:11:00 Eve [facility] POCT GLUCOSE (AUTOMATED) 2021-12-29 21:41:00 Eve [facility] POCT GLUCOSE (AUTOMATED) 2021-12-29 16:37:00 Eve [facility] TRANSTHORACIC ECHO (TTE) 2021-12-29 13:05:00 Eve [facility] COMPLETE W/ CONTRAST Medical [facility] POCT GLUCOSE (AUTOMATED) 2021-12-29 12:41:00 Eve [facility] TROPONIN I 2021-12-29 09:42:00 Eve [facility] TROPONIN I 2021-12-29 04:55:00 Eve [facility] CT HEAD WO CONTRAST 2021-12-28 21:18:[address] [facility] AMMONIA, PLASMA 2021-12-28 21:00:00 Pia Renteria [facility] COVID-19 (ID NOW RAPID 2021-12-28 20:42:00 Pia Renteria [facility] TESTING) Medical [place] LAB ONLY COVID 2021-12-28 20:42:00 Pia Renteria [facility] INTERPRETATION [facility] URINE DRUG (IMMUNOASSAY) 2021-12-28 20:42:00 Pia Renteria [facility] - COMPREHENSIVE DRUG [facility] SCREEN W/O REFLEX URINALYSIS 2021-12-28 20:40:00 Pia Renteria [facility] N-TERMINAL PRO-BNP 2021-12-28 20:40:00 Pia Renteria [facility] TROPONIN I 2021-12-28 20:40:00 Pia Renteria [facility] THYROID STIMULATING 2021-12-28 20:40:00 Jessica Prado [facility] HORMONE [facility] Branch COMP. METABOLIC PANEL 2021-12-28 20:40:00 Pia Renteria [facility] ([id number]) [facility] LIPID PANEL ([id number])(TOTAL 2021-12-28 20:40:00 Demetrius Langford [facility] CHOLESTEROL, [facility] TRIGLYCERIDES, HDL) ETHANOL 2021-12-28 20:40:00 Demetrius Langford o f [facility] CBC WITH DIFF 2021-12-28 20:40:00 Pia Renteria [facility] GLYCOSYLATED HEMOGLOBIN 2021-12-28 20:40:00 Jesscia Prado [facility] (A1C) [facility] PROTHROMBIN TIME / INR 2021-12-28 [facility]:40[facility] 2021-12[facility]28 [facility]:16[facility]HYTHM 2021-12-28 20:04:59 Pia Renteria [facility] Encounters Start End Encounter Admission Attending Care Care Encounter Source Date/Time Date/Time Type Type Clinicians Facility Department ID 2021-09-17 Inpatient [facility] [id number] [facility] 16:45:00 35 2020-06-06 Inpatient [facility] [id number] [facility] 16:07:00 05 2020-06-06 Inpatient [facility] [id number] [facility] 06:20:00 77 2020-06-05 Inpatient [facility] [id number] [facility] 19:35:00 25 2020-05-23 Inpatient [facility] [id number] [facility] 19:53:00 39 2021-12-31 2021-12-31 Transition EDMUNDO Portillo [id number] Univers 00:00:00 00:00:00 of Care Faye RANKIN [id number] [place] [id number] [place] [id number] [address] Branch 2021-12-28 2021-12-30 Inpatient X [facility] [id number] Univers 14:53:00 17:42:00 JESSICA rahman [facility] 2021-12-28 2021-12-30 [facility] Pia Renteria [facility] [id number] Univers 14:53:00 17:42:00 Encounter Jessica Prado [id number] Sweta [id number] [facility] [id number] [facility] 081 Branch Results Test Description Test Time Test Comments Results Result Comments Source POCT GLUCOSE (AUTOMATED) 2021-12-30 22:08:16 Test Item Value Reference Range Interpretation Comme nts POCT GLU (test code = 8143230057) 167 mg/dL 70-110 H Lab Interpretation (test code = 09907-7) [facility] 16:50:40 Test Item Value Reference Range Interpretation Comments POCT GLU (test code = 9481802295) 154 mg/dL 70-110 H Lab Interpretation (test code = Abnormal 46257-4) [facility]21-12-30 12:38:43 Test Item Value Reference Range Interpretation Comments POCT GLU (test code = 0127282213) 164 mg/dL 70-110 H Lab Interpretation (test code = Abnormal 28222-5) [facility]2021-12-30 02:14:58 Test Item Value Reference Range Interpretation Comments POCT GLU (test code = 2015493958) 220 mg/dL 70-110 H Lab Interpretation (test code = Abnormal 48448-9) [facility]2021-12-29 21:50:02 Test Item Value Reference Range Interpretation Comments POCT GLU (test code = 4019997239) 191 mg/dL 70-110 H Lab Interpretation (test code = Abnormal 00219-6) [facility]2021-12-29 20:15:01 Test Item Value Reference Range Interpretation Comments POCT GLU (test code = 7979761420) 163 mg/dL 70-110 H Lab Interpretation (test code = Abnormal 86282-7) [facility] (TTE)2021-12-29 19:12:22 Test Item Value Reference Range Interpretation Comments Height (test code = in 9070565454) Weight (test code = lbs 8410050812) Systolic BP (test code = mmHg 9918611156) Diastolic BP (test code mmHg = 4010927950) Heart Rate (test code = bpm 3513865240) BSA (test code = 1.62 m2 0885723946) Ao root annulus (test 2.45 cm code = 1087138805) Ao root diam (test code 2.45 cm = 0208309474) Aortic root (test code = 2.45 cm 9725839335) ACS (test code = 1.66 cm 2509772925) LA size (test code = 3.2 cm 8944811932) LVOT diameter (test code 1.95 cm = 0401264772) LVIDD (test code = 3.60 cm 4299503467) IVS (test code = 0.94 cm 1463925194) Interventricular Septum 0.94 cm Diastolic Thickness by 2D (test code = 7454910) LVPWD (test code = 0.80 cm 7005057664) PW (test code = 0.80 cm 0.6-1.5 0663027753) EF(Teich) (test code = 52.80 % 8488407757) LVIDS (test code = 2.60 cm 9189789920) FS (test code = 27 % 7570866304) EF - 2D (test code = 52.80 % 44816311) LAV(MOD-sp4) (test code 16.80 mL = 9776083447) MV Peak E Jovany (test code 46.1 cm/s = 0406081004) E wave decelartion time 0.31 s (test code = 2945138546) MV Peak A Jovany (test code 58.1 cm/s = 9867450458) E/A ratio (test code = ratio 0134112579) MV E/e' septal (test 5.7 cm/s code = 1098416945) Tapse (test code = 1.60 cm 4741017513) LVOT stroke volume (test 52.10 cm3 code = 1169799690) LVOT peak jovany (test code 110.6 cm/s = 0470495640) LVOT mn grad (test code mmHg = 5818592281) AV LVOT peak gradient mmHg (test code = 7434851672) LVOT peak VTI (test code 17.4 cm = 2482719470) LV V1 mean (test code = 66.10 cm/s 9245461797) Aortic valve mean 73.0 cm/s velocity (test code = 8251460598) Ao peak jovany (test code = 124.6 cm/s 2080525048) Ao VTI (test code = 18.6 cm 2790418900) AV area by cont VTI 2.8 cm2 (test code = 3587236840) AV area peak jovany (test 2.7 cm2 code = 6323279405) Ao max PG (test code = 6.20 mm[Hg] 5819445915) AV peak gradient (test mmHg code = 1557136815) AV valve area (test code 2.80 cm2 = 1255608034) AV mean gradient (test mmHg code = 3564754545) Radiology Study observation (narrative) (test code = 97085-3) JUAN ALBERTO (test code = JUAN ALBERTO) Formatting of this result is different from the original. ?Left?Ventricle: Left ventricle size is normal. Normal wall thickness. Normal wall motion. Normal systolic function with a visually estimated EF of 55 - 60%. There is impaired relaxation. ?Left?Atrium: Left atrium size is normal. ?Tricuspid?Valve: Trace transvalvular regurgitation. Insufficient regurgant jet to estimate RVSP. ?RA pressure is 0-5 mmHg. Left VentricleLeft ventricle size is normal. Normal wall thickness. Normal wall motion. Normal systolic function with a visually estimated EF of 55 - 60%. There is impaired relaxation.Right VentricleRight ventricle size is normal. Normal systolic function.Left AtriumLeft atrium size is normal.Right AtriumRight atrium size is normal.IVC/SVCRA pressure is 0-5 mmHg.Mitral ValveMitral valve structure is grossly normal. Trace transvalvular regurgitation.Tricusp id ValveTricuspid valve structure is grossly normal. Trace transvalvular regurgitation. Insufficient regurgant jet to estimate RVSP. RA pressure is 0-5 mmHg.Aortic ValveAortic valve opens well. Mildly calcified cusps. Trace transvalvular regurgitation.Pulmoni c ValvePulmonic valve is grossly normal. Trace transvalvular regurgitation.Ascendi ng AortaAnnulus is normal in size.PericardiumNo pericardial effusion.Study DetailsA complete echocardiogram was performed using 2D, color flow Doppler and spectral Doppler. 5 mL of Lumason ultrasound enhancing agent used. [facility] GLUCOSE (AUTOMATED)2021-12-29 12:50:31 Test Item Value Reference Range Interpretation Comments POCT GLU (test code = 1794923178) 141 mg/dL 70-110 H Lab Interpretation (test code = Abnormal 26467-8) [facility] [id number] 10:38:31 Test Item Value Reference Interpretation Comments Range TROPONIN I (test 0.003 ng/mL See_Comment [Automated code = 0700590552) message] The system which generated this result transmitted reference range : <=0.034. The reference range was not used to interpret this result as normal/abnormal . JUAN ALBERTO (test code = Reference (Normal) JUAN ALBERTO) Range (defined by the 99th percentile reference limit): <= 0.034 ng/mL Note: Cardiac troponin begins to rise 3-4 hours after the onset of ischemia. Repeat in 4-6 hours if the sample was drawn within 3-4 hours of the onset of the symptom and found normal. Diagnosis of myocardial injury is made with acute changes in cTn concentrations with at least one serial sample above the 99th percentile upper reference limit (URL), taken together with the patient's clinical presentation. Biotin has been reported to cause a negative bias, interpret results relative to patient's use of biotin. Lab Interpretation Normal (test code = 69113-6) [facility] (82563)(TOTAL CHOLESTEROL, TRIGLYCERIDES, HDL)2021-12-29 05:56:47 Test Item Value Reference Range Interpretation Comments CHOL (test code = 168 mg/dL 120-200 5589984658) HDL (test code = 102 mg/dL See_Comment [Automated message] 6850130877) The system [employer] generated this result transmit naomie reference range : >=40. The refer ence range was not u sed to interpret th is result as normal/abnormal . HDLC RATIO (test code = See_Comment [Au tomated message] 6839214130) The system [employer] generated this result transmit naomie reference range : <=5.0. The refe rence range was not u sed to interpret th is result as normal/abnormal . TRIG (test code = 55 mg/dL 30-170 2546338816) LDL CHOL (test code = 55 mg/dL See_Comment [Auto mated message] 45533-5) The system [employer] generated this result transmit naomie reference range : <=160. The refe rence range was not u sed to interpret th is result as normal/abnormal . VLDL (test code = 11 mg/dL 5-60 0104437584) Lab Interpretation (test Normal code = 07282-5) [facility] CenterThyroid Stimulating Hormone (TSH)2021-12-29 05:40:29 Test Item Value Reference Range Interpretation Comments TSH (test code = See_Comment Biotin has been 0101604332) reported to cau se a negative bias, interpret resul ts relative to pat ient's use of biotin. [Automated mess age] The system [employer] generated this result transmitted ref erence range: 0.45 - 4 .70 mIU/L. The refe rence range was not u sed to interpret this result as normal/abnor mal. Lab Interpretation (test Normal code = 61055-1) [facility]rop[facility] [id number] 05:34:29 Test Item Value Reference Interpretation Comments Range TROPONIN I (test 0.006 ng/mL See_Comment [Automated code = 8373964801) message] The system which generated this result transmitted reference range : <=0.034. The reference range was not used to interpret this result as normal/abnormal . JUAN ALBERTO (test code = Reference (Normal) JUAN ALBERTO) Range (defined by the 99th percentile reference limit): <= 0.034 ng/mL Note: Cardiac troponin begins to rise 3-4 hours after the onset of ischemia. Repeat in 4-6 hours if the sample was drawn within 3-4 hours of the onset of the symptom and found normal. Diagnosis of myocardial injury is made with acute changes in cTn concentrations with at least one serial sample above the 99th percentile upper reference limit (URL), taken together with the patient's clinical presentation. Biotin has been reported to cause a negative bias, interpret results relative to patient's use of biotin. Lab Interpretation Normal (test code = 76779-1) [facility] CenterETHANOL2022-07-10 04:43:01 ALCOHOL<10mg/dL12/28/2021 11:43 PM CDCHAR[facility] LABORATORYToxic Greater than or equal to 80 mg/dL. NOTE: Whole blood values are approximately 10% to 15% lower than serum and plasma.[facility] CenterGlycosylated Hemoglobin (A1C)2021-12-29 01:51:44 Test Item Value Reference Range Interpretation Comments HGB A1C (test code = 6.5 % 4-5.7 H 4548-4) JUAN ALBERTO (test code = JUAN ALBERTO) Reference RangesNormal: <5.7%Prediabetes: 5.7 - 6.4%Diabetes: > 6.5% Lab Interpretation (test Abnormal code = 53098-3) [facility] CenterTROPONIN [id number] 21:26:50 Test Item Value Reference Interpretation Comments Range TROPONIN I (test 0.002 ng/mL See_Comment [Automated code = [id number]) message] The system which generated this result transmitted reference range : <=0.034. The reference range was not used to interpret this result as normal/abnormal . JUAN ALBERTO (test code = Reference (Normal) JUAN ALBERTO) Range (defined by the 99th percentile reference limit): <= 0.034 ng/mL Note: Cardiac troponin begins to rise 3-4 hours after the onset of ischemia. Repeat in 4-6 hours if the sample was drawn within 3-4 hours of the onset of the symptom and found normal. Diagnosis of myocardial injury is made with acute changes in cTn concentrations with at least one serial sample above the 99th percentile upper reference limit (URL), taken together with the patient's clinical presentation. Biotin has been reported to cause a negative bias, interpret results relative to patient's use of biotin. Lab Interpretation Normal (test code = 08948-4) [facility] CenterN-TERMINAL [id number] 21:23:29 Test Item Value Reference Range Interpretation Comments NT-proBNP (test code 41 pg/mL See_Comment [Autom ated = 0300194456) message] The system which generated this result transmitted reference range : <=125. The reference range was not used to interpret this result as normal/abnormal . JUAN ALBERTO (test code = JUAN ALBERTO) Biotin has been reported to cause a negative bias, interpret results relative to patient's use of biotin. Lab Interpretation Normal (test code = 45065-0) [facility] CenterAMMONIA, [id number] 21:20:38 Test Item Value Reference Range Interpretation Comments AMMONIA (test code = 9-33 L Slight hemolysis [id number]) Lab Interpretation (test Abnormal code = 27144-0) [facility]. METABOLIC PANEL (12722)2021-12-28 21:08:48 Test Item Value Reference Range Interpretation Comments NA (test code = 137 mmol/L 135-145 5610128196) K (test code = 4.5 mmol/L 3.5-5 2480941767) CL (test code = 97 mmol/L 98-108 L 7528955182) CO2 TOTAL (test code = 29 mmol/L 23-31 2736362365) AGAP (test code = 2-16 3669363366) BUN (test code = 10 mg/dL 7-23 5324829067) GLUCOSE (test code = 188 mg/dL 70-110 H 8631744377) CREATININE (test code = 0.58 mg/dL 0.6-1.25 L 3611657553) TOTAL BILI (test code = 0.8 mg/dL 0.1-1.9 5072466163) CALCIUM (test code = 10.5 mg/dL 8.6-10.6 7828996746) T PROTEIN (test code = 7.6 g/dL 6.3-8.2 4684782000) ALBUMIN (test code = 4.5 g/dL 3.5-5 0590972826) ALK PHOS (test code = 107 U/L 34-122 9087228884) ALTv (test code = 66 U/L 5-50 H 1742-6) AST(SGOT) (test code = 96 U/L 13-40 H 8266146580) eGFR (test code = mL/min/1.73m2 0197549929) JUAN ALBERTO (test code = JUAN ALBERTO) Association of Glomerular Filtration Rate (GFR) and Staging of Kidney Disease* + --+ --+ ------+| GFR (mL/min/1.73 m2) ?| With Kidney Damage ?| ?Without Kidney Damage+ --------+ --------+ +| ?>90 ?| ?Stage one ?| ? Normal ?+ ---+ ---+ -------+| ?60-89 ?| ?Stage two ?| ? Decreased GFR ? + --+ --+ ------+| ?30-59 ?| ?Stage three ?| ? Stage three ? + --+ --+ ------+| ?15-29 ?| ?Stage four ? | ? Stage four ?+ ---+ ---+ -------+| ?<15 (or dialysis) ? ?| ?Stage five ? | ? Stage five ?+ ---+ ---+ -------+ *Each stage assumes the associated GFR level has been in effect for at least three months. ?Stages 1 to 5, with or without kidney disease, indicate chronic kidney disease. Notes: Determination of stages one and two (with eGFR >59mL/min/1.73 m2) requires estimation of kidney damage for at least three months as defined by structural or functional abnormalities of the kidney, manifested by either:Pathological abnormalities or Markers of kidney damage (including abnormalities in the composition of the blood or urine or abnormalities in imaging tests). Lab Interpretation Abnormal (test code = 27025-3) [facility] CenterPROTHROMBIN TIME / [id number] 21:01:25 Test Item Value Reference Range Interpretation Comments PROTIME PATIENT (test See_Comment [Auto mated message] code = 5964-2) The system wh ich generated this result transmitted ref erence range: 12.0 - 1 4.7 Seconds. The re ference range was not u sed to interpret this result as normal/abnor mal. INR (test code = 6301-6) Nor mal INR <1.1; Warfarin Therap eutic range 2.0 to 3. 0 or 2.5 to 3.5, dep ending upon the indica tions. Lab Interpretation (test Normal code = 75111-2) [facility] CenterCBC WITH [id number] 20:54:03 Test Item Value Reference Range Interpretation Comments WBC (test code = See_Comment [Automated 2790-2) message] The sy stem which generated this result transmitted reference range : 4.20 - 10.70 10*3/?L. The reference range was not used to interpret this result as normal/abnormal . RBC (test code = See_Comment [Automated 209-8) message] The sy stem which generated this result transmitted reference range : 4.26 - 5.52 10*6/?L. The reference range was not used to interpret this result as normal/abnormal . HGB (test code = 15.9 g/dL 12.2-16.4 718-7) HCT (test code = 46.5 % 38.4-49.3 4544-3) MCV (test code = 96.7 fL 81.7-95.6 H 787-2) MCH (test code = 33.1 pg 26.1-32.7 H 785-6) MCHC (test code = 34.2 g/dL 31.2-35 786-4) RDW-SD (test code = 47.8 fL 38.5-51.6 91614-2) RDW-CV (test code = 13.3 % 12.1-15.4 788-0) PLT (test code = See_Comment [Automated 777-3) message] The sy stem which generated this result transmitted reference range : 150 - 328 10*3/ ?L. The reference r elba was not used to interpret this result as normal/abnormal . MPV (test code = 8.6 fL 9.8-13 L 34760-8) NRBC/100 WBC (test See_Comment [Automat ed code = 4330585755) message] The system which generated this result transmitted reference range : 0.0 - 10.0 /100 WBCs. The refer ence range was not u sed to interpret th is result as normal/abnormal . NRBC x10^3 (test code See_Comment [Auto mated = 3755176654) message] The s ystem which generated this result transmitted reference range : 10*3/?L. The reference range was not used to interpret this result as normal/abnormal . GRAN MAT (NEUT) % 64.1 % (test code = 770-8) IMM GRAN % (test code 0.40 % = 2371858357) LYMPH % (test code = 16.6 % 736-9) MONO % (test code = 17.2 % 5905-5) EOS % (test code = 0.2 % 713-8) BASO % (test code = 1.5 % 706-2) GRAN MAT x10^3(ANC) 3.47 10*3/uL 1.99-6.95 (test code = 0761235987) IMM GRAN x10^3 (test 0-0.06 code = 3097779634) LYMPH x10^3 (test code 0.90 10*3/uL 1.09-3.23 L = 731-0) MONO x10^3 (test code 0.93 10*3/uL 0.36-1.02 = 742-7) EOS x10^3 (test code = 0.06-0.53 L 711-2) BASO x10^3 (test code 0.08 10*3/uL 0.01-0.09 = 704-7) Lab Interpretation Abnormal (test code = 55517-1) [facility] CenterCT [facility] con [facility] [address] [place] [address] Patient Name: Walt Velazquez Medical Record#: [id number] Address: Homeless City/State/Zip: [place] [address]: Vinnie Navarro MD Insurance: Self Pay /Age/Sex: 1970/50/M Admit/Reg Date: 09/17/[address]: Vinnie Navarro MD Location: [facility]/ PCP: Pcp-Md KERWIN Stiles Date of Service: 09/17/21 Order (s): CT head/brain wo con CPT Code: 54902 Report Number: [id number] Reason for Exam: Altered mental status Location H 31 CT SCAN OF THE HEAD WITHOUT CONTRAST CLINICAL HISTORY: Altered mental status TECHNIQUE: Helical CT was performed from the skull base to the vertex without IV contrast and provided at 5 mm slice thickness. Coronal and sagittal reconstruction provided. Axial images provided in bone windowsas well. One or more the following dose [...] JOSEE; GENESIS* Vinnie Navarro MD; Pcp-Md KERWIN Stiles"
== END 2021-12-22 04:56 | disposition left against medical advice (07) | DRG 439 ==
LOC: ER 21:40 → ERHOLD 12-22 03:59
PROVIDERS: ADMIT Hospitalist; ATTEND Hospitalist
DX: K85.20 Alcohol induced acute pancreatitis without necrosis or infection (principal); F10.188 Alcohol abuse with other alcohol-induced disorder; K76.0 Fatty (change of) liver, not elsewhere classified; G40.909 Epilepsy, unspecified, not intractable, without status epilepticus; K21.9 Gastro-esophageal reflux disease without esophagitis; F31.9 Bipolar disorder, unspecified; I10 Essential (primary) hypertension; D69.6 Thrombocytopenia, unspecified; F12.10 Cannabis abuse, uncomplicated; F15.10 Other stimulant abuse, uncomplicated; F13.10 Sedative, hypnotic or anxiolytic abuse, uncomplicated; Z53.29 Procedure and treatment not carried out because of patient's decision for other reasons; Z20.822 Contact with and (suspected) exposure to COVID-19
CPT/HCPCS: 36415; 71045; 74177; 80048; 80076; 80307; 80320; 80329; 81003; 83690; 83735; 83880; 84484; 85025; 85610; 85730; 93005; 96365; 96366; 96368; 96375; 99284; J3411; J3490; J7030; Q9967; U0003

== ENCOUNTER 2021-12-26 11:51 | Emergency (ER) | payer SELFPAY ==
[2021-12-26 12:35] LABS: Absolute Lymphocytes (CBC) 0.7 K/uL (0.7-4.9); Hematocrit 44.8 % (39.6-49.0); Lymphocytes % 13.6 % (15.3-44.8); MCV 97.7 fL (80-100); MPV 6.8 fL (7.6-11.3); RBC Red Blood Cell Count 4.59 M/uL (4.33-5.43)
[2021-12-26 12:56] LABS: Troponin High Sensitivity 10.4 pg/mL (<58.9)
[2021-12-26 12:57] LABS: Potassium 4.2 mmol/L (3.5-5.1)
[2021-12-26] MEDS ORDERED: ASPIRIN 81 MG CHEWABLE TABLET ONE ×2 (13:14→13:18)
[2021-12-26] MEDS ORDERED: NA CHLORIDE 0.9% 1,000 ML ONE (13:14)
--- NOTE | 2021-12-26 14:45 | RAD REPORT ---
EXAM DESCRIPTION: [place] Single View12/26/2021 2:21 pm CLINICAL HISTORY: Chest pain COMPARISON: December 21, 2021 FINDINGS: The lungs appear clear of acute infiltrate. The heart is normal size IMPRESSION: No acute abnormalities displayed
--- NOTE | 2021-12-26 14:54 | EDPHYS ---
Physician Documentation [facility] Name: Walt Velazquez Age: 51 yrs Sex: Male : 1970 Arrival Date: 12/26/2021 Time: 11:54 Bed 4 Private MD: ED Physician Jovanny Wen HPI: 12/26 14:01 This 51 yrs old Male presents to ER via EMS with complaints of Chest Pain. ms3 14:01 The patient or guardian reports chest pain that is located primarily in the substernal ms3 area. Onset: at an unknown time. The pain does not radiate. Associated signs and symptoms: Pertinent negatives: abdominal pain, nausea, near syncope, vomiting. The chest pain is described as dull. Duration: The patient or guardian reports a single episode. Modifying factors: The symptoms are alleviated by nothing. the symptoms are aggravated by nothing. Severity of pain: At its worst the pain was moderate in the emergency department the pain is unchanged. Historical: - Allergies: 11:54 No Known Allergies; aa5 - PMHx: 11:56 Alcoholism; Bipolar II; Hypertensive disorder; Parkinsons; Seizure; ha1 - Immunization history:: Adult Immunizations unknown. - Social history:: Smoking status: Patient reports the use of cigarette tobacco products, smokes one-half pack cigarettes per day. ROS: 14:01 Constitutional: Negative for fever, and chills. Neck: Negative for injury, pain, and ms3 swelling. 14:01 Respiratory: Negative for shortness of breath, cough, wheezing, and pleuritic chest pain, Abdomen/GI: Negative for abdominal pain, nausea, vomiting, diarrhea, and constipation, MS/Extremity: Negative for injury and deformity, Skin: Negative for injury, rash, and discoloration, Neuro: Negative for headache, weakness, numbness, tingling. Psych: Negative for depression, anxiety, suicide ideation, homicidal ideation, and hallucinations. 14:01 Cardiovascular: Positive for chest pain. 14:01 All other systems are negative. Exam: 13:09 ECG was reviewed by the Attending Physician. ms3 14:01 Constitutional: This is a well developed, well nourished patient who is awake, alert, ms3 and in no acute distress. Head/Face: Normocephalic, atraumatic. Neck: Trachea midline, no cervical lymphadenopathy. Supple, full range of motion without nuchal rigidity, or vertebral point tenderness. No Meningismus. Chest/axilla: Normal chest wall appearance and motion. Nontender with no deformity. 14:01 Respiratory: Lungs have equal breath sounds bilaterally, clear to auscultation and percussion. No rales, rhonchi or wheezes noted. No increased work of breathing, no retractions or nasal flaring. Abdomen/GI: Soft, non-tender, with normal bowel sounds. No distension or tympany. No guarding or rebound. No evidence of tenderness throughout. Skin: Warm, dry with normal turgor. Normal color with no rashes, no lesions, and no evidence of cellulitis. Neuro: Awake and alert, GCS 15, oriented to person, place, time, and situation. Cranial nerves II-XII grossly intact. Motor strength 5/5 in all extremities. Sensory grossly intact. Cerebellar exam normal. Normal gait. Psych: Awake, alert, with orientation to person, place and time. Behavior, mood, and affect are within normal limits. 14:01 Cardiovascular: Rate: tachycardic, Rhythm: regular, Pulses: no pulse deficits are appreciated, Heart sounds: normal. Vital Signs: 11:54 BP 159 / 98; Pulse 114; Resp 18 S; Temp 100.6(O); Pulse Ox 97% on R/A; Weight 58.97 kg aa5 (R); Height 5 ft. 2 in. (157.48 cm) (R); 12:45 BP 178 / 94; Pulse 102; Resp 20 S; Pulse Ox 99% on R/A; aa5 13:30 BP 179 / 94; Pulse 96; Resp 18 S; Temp 98.8(TE); Pulse Ox 99% on R/A; aa5 15:00 BP 158 / 99; Pulse 95; Resp 18 S; Temp 98.5(TE); Pulse Ox 100% on R/A; aa5 11:54 Body Mass Index 23.78 (58.97 kg, 157.48 cm) aa5 MDM: 12:05 Patient medically screened. ms3 13:09 Differential diagnosis: abnormal EKG, acute myocardial infarction, chest wall pain. ms3 14:55 HEART Score: History: Slightly Suspicious (0), ECG: Normal (0), Age: > 45 and < 65 ms3 years (1), Risk Factors: 1 or 2 risk factors (1), Troponin: < or = 1 x Normal Limit (0), Total Score = 2. Data reviewed: vital signs, nurses notes, lab test result(s), EKG, radiologic studies, and as a result, I will discharge patient. 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 Interpretation: normal. Counseling: I had a detailed discussion with the patient and/or guardian regarding: the historical points, exam findings, and any diagnostic results supporting the discharge/admit diagnosis, lab results, radiology results, the need for outpatient follow up, to return to the emergency department if symptoms worsen or persist or if there are any questions or concerns that arise at home. ED course: Discussed labs, chest x-ray, physical exam findings with patient. Patient to follow-up with primary care physician in 2 to 3 days. Patient understands and agrees with plan. All questions were answered. Return precautions discussed include worsening symptoms, or any other concerns. On reevaluation patient is alert and oriented x4, in no apparent distress, nontoxic-appearing, speaking full sentences, ambulatory in emergency department.. 12/26 11:56 Order name: Basic Metabolic Panel; Complete Time: 13:10 ms3 12/26 11:56 Order name: CBC with Diff; Complete Time: 12:51 ms3 12/26 11:56 Order name: Troponin HS; Complete Time: 13:10 ms3 12/26 11:56 Order name: XRAY Chest (1 view); Complete Time: 14:51 ms3 12/26 11:56 Order name: EKG; Complete Time: 11:56 ms3 12/26 11:56 Order name: Cardiac monitoring; Complete Time: 12:33 ms3 12/26 11:56 Order name: EKG - Nurse/Tech; Complete Time: 13:18 ms3 12/26 11:56 Order name: IV Saline Lock; Complete Time: 12:33 ms3 12/26 11:56 Order name: Labs collected and sent; Complete Time: 12:33 ms3 12/26 11:56 Order name: O2 Per Protocol; Complete Time: 12:33 ms3 12/26 11:56 Order name: O2 Sat Monitoring; Complete Time: 12:33 ms3 EC:09 Rate is 85 beats/min. Rhythm is regular. QRS [place] is Normal. [place] interval is normal. QRS ms3 interval is normal. Clinical impression: Normal ECG. Interpreted by me. Reviewed by me. Administered Medications: 13:00 Drug: Aspirin Chewable Tablet 324 mg Route: PO; aa5 14:00 Follow up: Response: No adverse reaction aa5 13:00 Drug: NS 0.9% 1000 ml Route: IV; Rate: 1000 ml; Site: right antecubital; aa5 14:00 Follow up: IV Status: Completed infusion; IV Intake: 1000ml aa5 Disposition Summary: 12/26/21 14:54 Discharge Ordered Location: Home ms3 Problem: new ms3 Symptoms: are unchanged ms3 Condition: Stable ms3 Diagnosis - Chest pain, unspecified ms3 Followup: ms3 - With: Hernan Wilkes DO - When: 2 - 3 days - Reason: Re-evaluation by your physician Discharge Instructions: - Discharge Summary Sheet ms3 - Nonspecific Chest Pain, Adult ms3 Forms: - Medication Reconciliation Form ms3 - Thank You Letter ms3 - Antibiotic Education ms3 - Prescription Opioid Use ms3 Signatures: Dispatcher [employer] EDNellie Bernabe, RN RN aa5 Jovanny Wen DO DO ms3 Mary Brown, RN RN ha1
--- NOTE | 2021-12-26 14:54 | ER ---
Nurse's Notes [facility] Name: Walt Velazquez Age: 51 yrs Sex: Male : 1970 Arrival Date: 12/26/2021 Time: 11:54 Bed 4 Private MD: Diagnosis: Chest pain, unspecified Presentation: 12/26 11:54 Chief complaint: EMS states: Detained by [place] [employer] and pt c/o chest pain. [place] [employer] aa5 at bedside, pt with handcuffs by PD. Coronavirus screen: At this time, the client does not indicate any symptoms associated with coronavirus-19. Ebola Screen: Patient denies travel to an Ebola-affected area in the 21 days before illness onset. Initial Sepsis Screen: Does the patient meet any 2 criteria? HR > 90 bpm. Does the patient have a suspected source of infection? No. Patient's initial sepsis screen is negative. Risk Assessment: Do you want to hurt yourself or someone else? Patient reports no desire to harm self or others. Onset of symptoms was December 26, 2021. 11:54 Acuity: LATASHA 3 aa5 11:54 Method Of Arrival: EMS: [facility] aa5 Historical: - Allergies: 11:54 No Known Allergies; aa5 - PMHx: 11:56 Alcoholism; Bipolar II; Hypertensive disorder; Parkinsons; Seizure; ha1 - Immunization history:: Adult Immunizations unknown. - Social history:: Smoking status: Patient reports the use of cigarette tobacco products, smokes one-half pack cigarettes per day. Screenin:54 Abuse screen: Denies threats or abuse. Nutritional screening: No deficits noted. aa5 Tuberculosis screening: No symptoms or risk factors identified. Fall Risk Secondary diagnosis (15 points) seizures, .. IV access (20 points). Total Cadena Fall Scale indicates Low Risk Score (25-44 pts). Fall prevention measures have been instituted. Side Rails Up X 2. Assessment: 11:54 General: Appears uncomfortable, Behavior is calm, cooperative. Pain: Complains of pain aa5 in chest Pain does not radiate. Pain currently is 5 out of 10 on a pain scale. 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 Neuro: Level of Consciousness is awake, alert, obeys commands, Oriented to person, place, time, situation. Cardiovascular: Heart tones S1 S2 present Rhythm is regular. Respiratory: Airway is patent Respiratory effort is even, unlabored, Respiratory pattern is regular, symmetrical, Breath sounds are clear bilaterally. GI: Abdomen is round non-distended, Bowel sounds present X 4 quads. Abd is soft and non tender X 4 quads. : No signs and/or symptoms were reported regarding the genitourinary system. EENT: No signs and/or symptoms were reported regarding the EENT system. Derm: Skin is dry, Skin is normal, Skin temperature is warm. Musculoskeletal: Range of motion: intact in all extremities. 12:45 Reassessment: Pt sitting up in bed. . Neuro: Level of Consciousness is awake, alert, aa5 obeys commands, Oriented to person, place, time, situation. Respiratory: Airway is patent Respiratory effort is even, unlabored, Respiratory pattern is regular, symmetrical. Derm: Skin is dry, Skin is normal, Skin temperature is warm. 13:30 Neuro: Level of Consciousness is awake, alert, obeys commands, Oriented to person, aa5 place, time, situation. Respiratory: Airway is patent Respiratory effort is even, unlabored, Respiratory pattern is regular, symmetrical. Derm: Skin is dry, Skin is normal, Skin temperature is warm. 13:30 Reassessment: Pt c/o chest pain, was notified. . aa5 14:30 Reassessment: Pt requesting food, pt given sandwich and soda. Sitting up in bed, aa5 tolerating well. . Vital Signs: 11:54 BP 159 / 98; Pulse 114; Resp 18 S; Temp 100.6(O); Pulse Ox 97% on R/A; Weight 58.97 kg aa5 (R); Height 5 ft. 2 in. (157.48 cm) (R); 12:45 BP 178 / 94; Pulse 102; Resp 20 S; Pulse Ox 99% on R/A; aa5 13:30 BP 179 / 94; Pulse 96; Resp 18 S; Temp 98.8(TE); Pulse Ox 99% on R/A; aa5 15:00 BP 158 / 99; Pulse 95; Resp 18 S; Temp 98.5(TE); Pulse Ox 100% on R/A; aa5 11:54 Body Mass Index 23.78 (58.97 kg, 157.48 cm) aa5 ED Course: 11:54 Patient arrived in ED. ha1 11:54 Arm band placed on. ha1 11:54 Patient has correct armband on for positive identification. Bed in low position. Call aa5 light in reach. Side rails up X2. Client placed on continuous cardiac and pulse oximetry monitoring. NIBP monitoring applied. 11:55 Jovanny Wen DO is Attending Physician. ms3 11:56 Triage completed. ha1 11:57 Nellie Perkins RN is Primary Nurse. aa5 11:58 Patient maintains SpO2 saturation greater than 95% on room air. aa5 12:15 Initial lab(s) drawn, by me, sent to lab. Inserted saline lock: 20 gauge in right aa5 antecubital area, using aseptic technique. Blood collected. 13:45 No provider procedures requiring assistance completed. aa5 14:23 XRAY Chest (1 view) In Process Unspecified. EDMS 14:53 Hernan Wilkes DO is Referral Physician. ms3 15:10 IV discontinued, intact, bleeding controlled, No redness/swelling at site. Pressure aa5 dressing applied. Administered Medications: 13:00 Drug: Aspirin Chewable Tablet 324 mg Route: PO; aa5 14:00 Follow up: Response: No adverse reaction aa5 13:00 Drug: NS 0.9% 1000 ml Route: IV; Rate: 1000 ml; Site: right antecubital; aa5 14:00 Follow up: IV Status: Completed infusion; IV Intake: 1000ml aa5 Medication: 15:10 VIS not applicable for this client. aa5 Intake: 14:00 IV: 1000ml; Total: 1000ml. aa5 Output: 15:00 Urine: 1000ml (Voided); Total: 1000ml. aa5 Outcome: 14:54 Discharge ordered by . ms3 15:10 Discharged to Law Enforcement, accompanied by Jai HUDDLESTON. aa5 15:10 Condition: stable 15:10 Discharge instructions given to patient, police, Instructed on discharge instructions, follow up and referral plans. Demonstrated understanding of instructions, follow-up care. 15:13 Patient left the ED. aa5 Signatures: Dispatcher [employer] EDMS Nellie Perkins RN RN aa5 Jovanny Wen DO DO ms3 Mary Brown RN RN ha1 Corrections: (The following items were deleted from the chart) 11:54 Chief complaint: EMS states: Detained by [place] [employer] and pt c/o chest pain. aa5 [place] [employer] at bedside, pt with handcuffs by PD. [facility] 11:54 Onset of symptoms was December 26, 2021 [facility] 11:54 Risk Assessment: Do you want to hurt yourself or someone else? Patient reports no aa5 desire to harm self or others. 11:54 Initial Sepsis Screen: Does the patient meet any 2 criteria? HR > 90 bpm. Does aa5 the patient have a suspected source of infection? No. Patient's initial sepsis screen is negative. [facility] 11:54 Coronavirus screen: At this time, the client does not indicate any symptoms aa5 associated with coronavirus-19. 11:54 Ebola Screen: Patient denies travel to an Ebola-affected area in the 21 days aa5 before illness onset. [facility] 11:54 Acuity: LATASHA 3 [facility] 11:54 Method Of Arrival: EMS: [facility] 11:54 BP 159 / 98; Pulse 114bpm; Resp 18bpm; Spontaneous; Pulse Ox 97% RA; Temp 100.6F aa5 Oral; 58.97 kg Reported; Height 5 ft. 2 in. Reported; BMI: 23.7; [facility]
[2021-12-26 15:54] VITALS: BP 159/98; TEMP 100.6; O2SAT 97
--- NOTE | 2021-12-30 14:02 | EKG ---
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
== END 2021-12-26 15:13 | disposition home or self-care (01) ==
LOC: ER 11:51
DX: R07.9 Chest pain, unspecified (principal); I10 Essential (primary) hypertension; F10.20 Alcohol dependence, uncomplicated; G20 Parkinson's disease; F17.210 Nicotine dependence, cigarettes, uncomplicated; F31.81 Bipolar II disorder
CPT/HCPCS: 36415; 71045; 80048; 84484; 85025; 93005; J7030

== ENCOUNTER 2022-03-22 20:51 | Emergency (ER) | payer SELFPAY ==
[2011-10-24 19:41] VITALS: BP 138/81
--- OUTSIDE RECORDS SUMMARY | 2022-03-22 20:57 | XMS REPORT | Continuity of Care Document ---
:1970 Author Organization [facility] t Address [address] [place] [address] Care Team Providers Name Role Phone Pcp-None Primary Care Physician Unavailable Fidel Cuellar Attending Clinician Unavailable DIRK YARBROUGH Attending Clinician Unavailable Leticia Rowland Attending Clinician Dirk Yarbrough MD Attending Clinician Faye Portillo LVN Attending Clinician JESSICA PRADO Attending Clinician Unavailable Pia Reddy Attending Clinician Jessica Prado MD Attending Clinician Vinnie Navarro Attending Clinician Unavailable Leticia HAMEED Admitting Clinician Unavailable JESSICA PRADO Admitting Clinician Unavailable Jessica Prado MD Admitting Clinician Payers Payer Name Policy Type Policy Number Effective Date Expiration Date Rhoda xiong [facility] [id number] 2021 SNF 00:00:00 Problems Condition Condition Condition Status Onset Resolution [...] ia ia 7-10 ity of 00:00: [place] [facility] [place] Chest Chest Disease Active Univers pain, pain, 12-28 ity of [place]spec[place] d type 00 Medical [place] Priapism Priapism Disease Active 2013-06 Unive rs 1-06 ity of 00:00: [place] 00 Medical Branch Allergies, Adverse Reactions, Alerts Allergy Allergy Status Severity Reaction(s) Onset Inactive Treating Comm ents Source Name Type Date Date Clinician No Known [facility]16 Allergie 00:00: s 00 No Known DA Active U [facility] Drug 3-29 Allergie 00:00: s 00 No Known DA Active U 2019-06 [facility] Drug 2-16 Allergie 00:00: s 00 No Known DA Active U 2019-06 [facility] Drug 2-15 Allergie 00:00: s 00 No Known DA Active U 2019-06 [facility] Drug 2-02 Allergie 00:00: s 00 Trazodon Propensi Active Other - See U nivers e ty to comments 4-17 ity of adverse 00:00: [place] reaction 00 [facility] TRAZODON DRUG Active Other-Cmnt Univ ers E INGREDI 4-17 ity of 00:00: [place] 00 Medical [place] Social History Social Habit Start Date Stop Date Quantity Comments Source History of Smokes tobacco University of tobacco use daily [facility] Exposure to 2022-01-09 2022-01-19 Unable to assess Univers ity of SARS-CoV-2 00:00:00 17:16:00 [facility] (event) Branch Alcohol intake 2022-01-19 2022-01-19 Current drinker Unive rsity of 00:00:00 00:00:[address] [facility] (finding) Branch Tobacco use and 2021-12-28 2021-12-28 Smokeless tobacco Un iversity of exposure 00:00:00 00:00:00 non-user [facility] Tobacco Comment 2021-12-28 2021-12-28 1/2 a pack a day Uni versity of 00:00:00 00:00:00 [facility] Sex [birth year] Universit y of 00:00:00 00:00:00 [facility] Smoking Status Start Date Stop Date Source Smokes tobacco daily 2021-12-28 00:00:00 Univers ity of [facility] Medications Ordered Filled Start Stop Current Ordering Indication Dosage Frequency Signature Comments Components Source Medication Medication Date Date Medication? Clinician (SIG) Name Name oxaevinpam 2021- Yes 15mg 15 mg, Univer s (SERAX) 12-31 Oral, Q12H ity o f capsule 15 06:28: 06:29 [place] 2 [place] 17 :00 doses, Medical First dose Branch on Thu12/31/21 at 0130, Last dose on Thu12/31/21 at 1330, Routine multivitami Yes [id number] 1{tbl} Take 1 Univers n tablet 7-12 [id number] tablet by ity of 00:00: mouth in [place] the Medical morning. Branch thiamine Yes [id number] 100mg Take 1 Univers 100 mg 7-12 [id number] tablet by ity of tablet 00:00: mouth in [place] the Medical morning. Branch aspirin 81 Yes [id number] 81mg Take 1 Univers mg chewable 7-12 [id number] tablet by i ty of tablet 00:00: mouth in [place] the Medical morning. Branch multivitami Yes [id number] 1{tbl} Take 1 Univers n tablet 7-12 [id number] tablet by ity of 00:00: mouth in [place] the Medical morning. Branch thiamine Yes [id number] 100mg Take 1 Univers 100 mg 7-12 [id number] tablet by ity of tablet 00:00: mouth in [place] the Medical morning. Branch aspirin 81 Yes [id number] 81mg Take 1 Univers mg chewable 7-12 [id number] tablet by i ty of tablet 00:00: mouth in [place] the Medical morning. Branch multivitami Yes [id number] 1{tbl} Take 1 Univers n tablet 7-12 [id number] tablet by ity of 00:00: mouth in [place] the Medical morning. Branch thiamine Yes [id number] 100mg Take 1 Univers 100 mg - [id number] tablet by ity of tablet 00:00: mouth in [place] the morning. Branch aspirin 81 0 Yes [id number] 81mg Take 1 Univers mg chewable - [id number] tablet by i ty of tablet 00:00: mouth in [place] the morning. Branch foLIC acid 0 2021- Yes [id number] 1mg Take 1 Univers 1 mg tablet 12-31 [id number] tablet by ity of 00:00: 04:59 mouth in [place] 00 :00 [facility] for 30 days. foLIC acid 2021- Yes [id number] 1mg Take 1 Univers 1 mg tablet 12-31 [id number] tablet by ity of 00:00: 04:59 mouth in [place] 00 :00 [facility] for 30 days. foLIC acid 2021- Yes [id number] 1mg Take 1 Univers 1 mg tablet 12-31 [id number] tablet by ity of 00:00: 04:59 mouth in [place] 00 :00 [facility] for 30 days. metFORMIN 0 Yes [id number] 500mg Take 1 Univers 500 mg 7-11 [id number] tablet by ity of tablet 00:00: mouth in [address] and 1 tablet in the evening. Take with meals. metFORMIN 2021-0 Yes [id number] 500mg Take 1 Univers 500 mg 7-11 [id number] tablet by ity of tablet 00:00: mouth in [address] and 1 tablet in the evening. Take with meals. metFORMIN 0 Yes [id number] 500mg Take 1 Univers 500 mg 7-11 [id number] tablet by ity of tablet 00:00: mouth in [address] and 1 tablet in the evening. Take with meals. aspirin 2021-0 Yes 81mg 81 mg, Univers chewable 7-10 Oral, ity of tablet 81 14:00: DAILY, [place] mg 00 First dose Medical on [place] Branch 12/29/21 at 0900, Until Discontinu ed, Routine sulfur 2021-0 2022- No [id number] 5mL 5 mL, Unive rs hexafluorid 12-29 07-10 Intravenou i ty of e microsphr 13:45: 13:45 s, ONCE, 1 [place] (LUMASON) 00 :00 dose, On Medica l injection 5 [facility] mL 12/29/21 at 0845, Routine
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 medication : STEFANIE GORMAN enoxaparin 2021-0 Yes 40mg 40 mg, Unive rs (LOVENOX) 7-10 Subcutaneo ity of injection 13:00: us, Q24H, [place] 40 mg 00 First dose Medical on [facility] 12/29/21 at 0800, Until Discontinu ed, Routine Sliding 2021-0 Yes Subcutaneo Univ ers Scale 7-10 us, TID ity of Insulin - 13:00: MEALS+HS, [place] Lispro 00 First dose Medical (HumaLOG) + on [facility] Fsbg 12/29/21 at Testing 0800, Until Discontinu ed, Routine diazePAM 2021-0 2021- No 10mg 10 mg, Univer s (VALIUM) 7-10 07-10 Intravenou ity of injection 05:30: 04:40 s, ONCE, 1 [place] 10 mg 00 :00 dose, On Medical [facility] 12/29/21 at 0030, Routine diazePAM 2021-0 2021- No 10mg 10 mg, Univer s (VALIUM) 7-10 07-10 Intravenou ity of injection 04:15: 03:17 s, ONCE, 1 [place] 10 mg 00 :00 dose, On Medical [facility] 12/28/21 Branch at 2315, Routine diazePAM 2021-0 Yes 5mg 5 mg, Univers (VALIUM) 7-10 Intravenou ity o f injection 5 03:45: s, QIDPRN, [place] mg 01 Starting Medical on [facility] 12/28/21 at 2245, Until Discontinu ed, Routine, Seizures, Agitation foLIC acid 2021-0 Yes 1mg 1 mg, Univer s (FOLATE) 7-10 Oral, ity of tablet 1 mg 03:45: DAILY, [place] 00 First dose Medical on [facility] Branch 12/28/21 at 2245, Until Discontinu ed, Routine thiamine 2021-0 Yes 100mg 100 mg, Unive rs (VITAMIN 7-10 Oral, ity of B1) tablet 03:45: DAILY, [place] 100 mg 00 First dose Medical (after Branch last modificati on) on [facility] 12/28/21 at 2245, Until Discontinu ed, Routine glucagon Yes 1mg 1 mg, Univers (GLUCAGEN 7-10 Intramuscu ity of DIAGNOSTIC 03:42: lar, PRN, [place] KIT) 19 Starting Medical injection 1 on [facility] Branch 12/28/21 at 2242, Until Discontinu ed, JACIEL, Blood Glucose < or = 70 mg/dL and patient is unable to swallow or has mental changes. dextrose Yes 250mL 250 mL, IV Un lorena 10% (D10W) 7-10 Infusion, ity of bolus 03:42: PRN - SEE [place] infusion 19 INSTRUCTIO Medic al 250 mL NS, Branch Administer over 60 Minutes, Other, If blood glucose is < or = 70 mg/dL and patient is unable to swallow or has mental status changes, Starting on [facility] 12/28/21 at 2242
If blood glucose is [...] glucose is < 80 mg/dL, repeat.
LORazepam 2021- No 1mg 1 mg, Univer s (ATIVAN) 7 07-10 Intravenou ity of injection 1 03:30: 02:32 s, ONCE, 1 [place] mg 00 :00 dose, On Medical [facility] 12/28/21 Branch at 2230, Routine
Is the medication being used for status epilepticu s? No oxazepam Yes 15mg 15 mg, Univers (SERAX) 7-10 Oral, ity of capsule 15 00:28: Q4HPRN, [place] mg 20 Starting Medical on [facility] Branch 12/28/21 at 1928, Until Discontinu ed, Routine, Only while awake for DBP equal to or greater than 100, HR equal to or greater than 100. ondansetron Yes 4mg 4 mg, Slow Univers (ZOFRAN 7-10 IV Push, ity of (PF)) 00:23: Q6HPRN, [place] injection 4 47 Starting Medi yudy mg on Sat Branch 12/28/21 at 1923, Until Discontinu ed, Routine, Nausea and Vomiting (N/V) acetaminoph Yes 650mg 650 mg, Un lorena en 7-10 Oral, ity of (TYLENOL) 00:23: Q6HPRN, [place] tablet 650 37 Starting Medic al mg on Sat Branch 12/28/21 at 1923, Until Discontinu ed, Routine, Pain (scale 1-3), Temp > 38.5 C chlordiazeP 2021- No 25mg 25 mg, Uni vers OXIDE 12-28 Oral, ity of (LIBRIUM) 23:15: 23:24 ONCE, 1 [place] capsule 25 00 :00 dose, On Medic al mg 12/28/21 Branch at 1815, JACIEL NaCl 0.9% 2021- No 2000mL at 999 Uni vers (NS) bolus 12-28 mL/hr, ity of infusion 22:45: 23:18 2,000 mL, [place] as 2,000 mL 00 :00 IV Medical Infusion, Branch ONCE, 1 dose, On 12/28/21 at 1745, AJCIEL LORazepam 2021- No 1mg 1 mg, Slow U nivers (ATIVAN) 12-28 IV Push, ity of injection 1 20:45: 20:49 ONCE, 1 [place] mg 00 :00 dose, On Medical 12/28/21 Branch at 1545, STAT
Is the medication being used for status epilepticu s? No acetaminoph Yes 500mg Take 1 Tab Univers en 4-17 by mouth ity of (TYLENOL) 00:00: every 6 [place] 500 mg 00 (six) Medical tablet hours as Branch needed for Pain. acetaminoph Yes 500mg Take 1 Tab Univers en 4-17 by mouth ity of (TYLENOL) 00:00: every 6 [place] 500 mg 00 (six) Medical tablet hours as Branch needed for Pain. acetaminoph Yes 500mg Take 1 Tab Univers en 4-17 by mouth ity of (TYLENOL) 00:00: every 6 [place] 500 mg 00 (six) Medical tablet hours as Branch needed for Pain. Vital Signs Vital Name Observation Time Observation Value Comments Source Systolic blood 2022-01-20 02:27:00 121 mm[Hg] Univer sity of pressure [facility] Diastolic blood 2022-01-20 02:27:00 75 mm[Hg] Unive rsity of [facility] Heart rate 2022-01-20 02:27:00 79 /min Universi ty [facility] Respiratory rate 2022-01-20 02:27:00 12 /min [facility] Oxygen saturation in 2022-01-20 02:27:00 98 /min University of Arterial blood by [place] [employer] [facility] Pulse oximetry Branch Body temperature 2022-01-19 22:19:00 36.44 Theresa [facility] Body weight 2022-01-19 22:19:[address] [facility] BMI 2022-01-19 22:19:00 23.56 kg/m2 [facility] Systolic blood 2021-12-30 20:52:00 134 mm[Hg] Univer sity of [facility] Diastolic blood 2021-12-30 20:52:00 76 mm[Hg] Unive rsity of [facility] Heart rate 2021-12-30 20:52:00 67 /min [facility] Body temperature 2021-12-30 20:26:00 36.67 Theresa [facility] Oxygen saturation in 2021-12-30 20:26:00 99 /min University of Arterial blood by [facility] Pulse oximetry Branch Respiratory rate 2021-12-30 16:21:00 18 /min [facility] Body weight 2021-12-30 08:27:[address] [facility] BMI 2021-12-30 08:27:00 23.61 kg/m2 [facility] Body height 2021-12-29 01:29:[address] [facility] Procedures Procedure Date / Time Performing Clinician Source Performed LACTIC ACID WHOLE BLOOD 2022-01-20 00:22:00 Leticia Hameed [facility] URINE DRUG (IMMUNOASSAY) 2022-01-19 23:10:00 Leticia Hameed [facility] SCREEN URINALYSIS 2022-01-19 23:10:00 Leticia Hameed [facility] TROPONIN I 2022-01-19 23:00:00 Leticia Hameed [facility] COMP. METABOLIC PANEL 2022-01-19 23:00:00 Leticia Hameed [facility] ([id number]) Medical Branch LITHIUM 2022-01-19 23:00:00 Leticia Hameed [facility] ETHANOL 2022-01-19 23:00:00 Leticia Hameed [facility] CBC WITH DIFF 2022-01-19 23:00:00 Leticia Hameed [facility] COVID-19 (ID NOW RAPID 2022-01-19 23:00:00 [facility]AST 2022-01-19 22:49:[address] [facility] XR CHEST 1 VW 2022-01-19 22:41:00 Leticia Hameed [facility] POCT GLUCOSE (AUTOMATED) 2022-01-19 22:25:00 Leticia Hameed [facility] POCT GLUCOSE (AUTOMATED) 2021-12-30 21:55:00 Jessica Prado [facility] POCT GLUCOSE (AUTOMATED) 2021-12-30 16:21:00 Jessica Prado [facility] POCT GLUCOSE (AUTOMATED) 2021-12-30 12:30:00 Jessica Prado [facility] HEPATIC FUNCTION PANEL 2021-12-30 09:28:00 Maira Gaitan [facility] ([id number]) (ALB,T.PRO,[facility] T,BU/BC,ALT,AST,ALK PHOS) POCT GLUCOSE (AUTOMATED) 2021-12-30 02:11:00 [place], Jessica [facility] POCT GLUCOSE (AUTOMATED) 2021-12-29 21:41:00 [facility] POCT GLUCOSE (AUTOMATED) 2021-12-29 16:37:00 [facility] TRANSTHORACIC ECHO (TTE) 2021-12-29 13:05:00 [facility]/ CONTRAST Medical [facility] POCT GLUCOSE (AUTOMATED) 2021-12-29 12:41:00 [facility] TROPONIN I 2021-12-29 09:42:00 [facility] TROPONIN I 2021-12-29 04:55:00 Eve [facility] CT HEAD WO CONTRAST 2021-12-28 21:18:22 Pia Renteria [facility] AMMONIA, PLASMA 2021-12-28 21:00:00 [facility] (ID NOW RAPID 2021-12-28 20:42:00 [facility] LAB ONLY COVID 2021-12-28 20:42:00 [facility] URINE DRUG (IMMUNOASSAY) 2021-12-28 20:42:00 Pia Renteria [facility] - COMPREHENSIVE DRUG [facility] SCREEN W/O REFLEX URINALYSIS 2021-12-28 20:40:00 Pia Renteria [facility] N-TERMINAL PRO-BNP 2021-12-28 20:40:[address] [facility] TROPONIN I 2021-12-28 20:40:00 Pia Renteria [facility] THYROID STIMULATING 2021-12-28 20:40:00 Jessica Prado [facility] HORMONE [facility] COMP. METABOLIC PANEL 2021-12-28 20:40:00 Pia Renteria [facility] ([id number]) Medical Branch LIPID PANEL ([id number])(TOTAL 2021-12-28 20:40:00 [facility] [place] CHOLESTEROL, [facility] Branch TRIGLYCERIDES, HDL) ETHANOL 2021-12-28 20:40:00 Demetrius [place] [facility] CBC WITH DIFF 2021-12-28 20:40:00 Pia Renteria [facility] GLYCOSYLATED HEMOGLOBIN 2021-12-28 20:40:00 Jessica Prado [facility] (A1C) [facility] PROTHROMBIN TIME / INR 2021-12-28 20:40:00 Pia Renteria [facility] XR CHEST 1 VW 2021-12-28 20:16:00 Pia Renteria [facility] HB ECG ROUTINE & RHYTHM 2021-12-28 20:04:59 Pia Renteria [facility] Encounters Start End Encounter Admission Attending Care Care Encounter Source Date/Time Date/Time Type Type Clinicians Facility Department ID 2021-09-17 Inpatient [facility] [id number] [facility] 16:45:00 35 2020-06-06 Inpatient [facility] [id number] [facility] 16:07:00 05 2020-06-06 Inpatient [facility] [id number] [facility] 06:20:00 77 2020-06-05 Inpatient [facility] [id number] [facility] 19:35:00 25 2020-05-23 Inpatient [facility] [id number] [facility] 19:53:00 39 2020-05-23 Inpatient [facility] [id number] [facility] 19:53:00 39 2022-03-07 2022-03-07 Emergency [facility] [id number] [facility] 12:38:00 12:38:00 74 2022-03-07 2022-03-07 Emergency Emergency Fidel Cuellar [facility] [id number] [facility] 12:38:00 12:38:00 74 2022-01-19 2022-01-19 Emergency Shakir YARBROUGH HIYULIA ERT [id number] Univers 17:18:00 22:00:00 DIRK rahman [facility] 2022-01-19 2022-01-19 Emergency Leticia Hameed [facility] [id number] Univers 17:18:00 22:00:00 Dirk Yarbrough [id number] ity of [facility] [id number] [facility] [id number] [facility] 084 Branch 2021-12-31 2021-12-31 Transition EDMUNDO Portillo [id number] Univers 00:00:00 00:00:00 of Care Faye RANKIN [id number] ity of [place] [id number] [facility] [id number] [facility] 403 Branch 2021-12-28 2021-12-30 Inpatient X EVE [facility] [id number] Univers 14:53:00 17:42:00 JESSICA ity [facility] 2021-12-28 2021-12-30 [facility] Pia Renteria [facility] [id number] Univers 14:53:00 17:42:00 Encounter Aroldo Pradoiftikhar OTTO [id number] ity of [facility] [id number] [facility] [id number] [place] [id number] Branch 2021-09-17 2021-09-17 Emergency [facility] [id number] [facility] 16:47:00 16:47:00 35 2020-06-06 2020-06-06 Emergency [facility] [id number] [facility] 16:07:00 16:07:00 05 Results Test Description Test Time Test Comments Results Result Comments Source UA, Urinalysis Rflx Cult/Sedmt 2022-03-07 13:53:00 Test Item Value Reference Range Interpretation Comme nts Color,Urine (test code = UCOL) Yellow Yellow Clarity,Urine (test code = UCLAR) Cloudy Clear A Ph, Urine (test code = UPH) 7.5 5.0-9.0 N Specific [place],Urine (test code = USG) 1.025 1.005-1.030 N Blood,Urine (test code = UBLD) Negative mg/dL Negative Protein,Urine (test code = UPRO) Negative mg/dL Negative Glucose,Urine (UA) (test code = UGLU) Negative mg/dL Negative Ketones,Urine (test code = UKET) Negative mg/dL Negative Nitrate,Urine (test code = UNIT) Negative Negative Bilirubin,Urine (test code = UBIL) Negative mg/dL Negative Urobilinogen,Urine (test code = UURO) 2.0 E.U./dL Normal A Leukocyte Esterase,Urine (test code = ULEU) Negative mg/dL Negative UF REFLEXDrug Screen,[id number] 13:53:00 Test Item Value Reference Range Interpretation Comments PCP Phencyclidine Screen,Urine (test Negative Negative code = PCPU) Amphetamine Screen,Urine (test code Negative Negative = AMPU) Methadone Screen,Urine (test code = Negative Negative METHU) Opiate Screen,Urine (test code = Negative Negative UOPIS) Barbituates Screen,Urine (test code Negative Negative = BARBU) Benzodiazepines Screen,Urine (test Negative Negative code = UBENZS) Cocaine Screen,Urine (test code = Negative Negative UCOCS) Cannabinoid Screen,Urine (test code Negative Negative = UTHCS) Propoxyphene Screen, Urine (test Negative Negative code = UPROP) Complete Blood Count Auto [id number] 12:58:00 Test Item Value Reference Range Interpretation Comments White Blood Count (test code = 9.1 x10 3/uL 4.4-10.5 N WBCT) Red Blood Count (test code = 4.80 x10 6/uL 4.10-5.70 N RBC) Hemoglobin (test code = HGBT) 15.6 g/dL 13.4-17.4 N Hematocrit (test code = HCTT) 46.1 % 38.7-52.0 N Mean Corpuscular Volume (test 96.00 fL 80.00-100.00 N code = MCV) Mean Corpuscular Hemoglobin 32.5 pg 27.0-32.5 N (test code = MCH) Mean Corpuscular HGB Conc 33.80 g/dL 32.00-37.50 N (test code = MCHC) RDW Coefficient of Variation 12.5 % 11.5-14.5 N (test code = RDWCV) Platelet Count (test code = 283.0 x10 3/uL 140.0-440.0 N PLTT) Mean Platelet Volume (test 8.6 fL code = MPV) Immature Granulocytes % (Auto) 0.4 % 0.0-5.0 N (test code = IMMGRAN%) Neutrophils % (Auto) (test 68.5 % 36.0-70.0 N code = NE%) Lymphocytes % (Auto) (test 23.5 % 12.0-44.0 N code = LY%) Monocytes % (Auto) (test code 6.7 % 0.0-11.0 N = MO%) Eosinophils % (Auto) (test 0.2 % 0.0-7.0 N code = EO%) Basophils % (Auto) (test code 0.7 % 0.0-2.0 N = BA%) Immature Granulocytes # (Auto) 0.04 x10 3/uL (test code = IMMGRAN#) Neutrophils # (Auto) (test 6.2 x10 3/uL 1.6-7.4 N code = NE#) Lymphocytes # (Auto) (test 2.14 x10 3/uL 0.50-4.60 N code = LY#) Monocytes # (Auto) (test code 0.61 x10 3/uL 0.00-1.20 N = MO#) Eosinophils # (Auto) (test 0.02 x10 3/uL 0.00-0.74 N code = EO#) Basophils # (Auto) (test code 0.06 x10 3/uL 0.00-0.21 N = BA#) nRBC Abs (test code = NRBCA) 0 nRBC Pct (test code = NRBCP) 0 % Coronavirus PCR, COVID19 [id number] 12:58:00 Test Item Value Reference Range Interpretation Comments Coronavirus PCR, COVID19 Rapid (test code = SARSCOV2) Coronavirus PCR, COVID19 Reference Range: Rapid (test code = Negative HWGQMPC72.1) SARS-CoV-2 PCR Result: Negative by RT-PCR (test code = SARS-CoV-2 PCR Result:) COVID-19 Status: AsymptomaticComprehensive Metabolic [id number] 12:58:00 Test Item Value Reference Range Interpretation Comments SODIUM (test code = NA) 140.0 mmol/L 136.0-145.0 N Potassium,K (test code = K) 4.0 mmol/L 3.0-5.1 N Chloride (test code = CL) 108 mmol/L 98-107 H Carbon Dioxide (test code = CO2) 27 mmol/L 20-31 N Anion Gap (test code = GAP) 5 mmol/L 5-15 N Blood Urea Nitrogen (test code = 15 mg/dL 9-23 N BUN) Creatinine (test code = CREATT) 0.87 mg/dL 0.55-1.02 N Creatinine Clr Calc Pharmacy 88.74 mL/min (test code = CRCLPHA) Estimated GFR ( Aimee > 60 mL/min/1.73m2 (test code = EGFRAA) Estimated GFR (Non Afr Aimee > 60 mL/min/1.73m2 (test code = EGFRNAA) BUN/Creatinine Ratio (test code 17 ratio 10-20 N = BCRATIO) Glucose (test code = GLU) 163 mg/dL 74-106 H Osmolality,Calculated (test code 294.3 = OSMOC) Calcium (test code = CA) 11.5 mg/dL 8.3-10.6 H Bilirubin,Total (test code = 0.4 mg/dL 0.2-1.1 N BILIT) Aspartate Amino Transferase 15 U/L 0-34 N (test code = AST) Alanine Aminotransferase (test 13 U/L 10-49 N code = ALT) Total Protein (test code = TP) 7.2 g/dL 5.7-8.2 N Albumin Level (test code = ALB) 4.6 g/dL 3.2-4.8 N Globulin (test code = GLOB) 2.6 mg/dL 2.3-3.5 N Albumin/Globulin Ratio (test 1.8 ratio 0.8-2.0 N code = AGRATIO) Alkaline Phosphatase (test code 144 U/L 46-116 H = ALP) Ethanol [id number] 12:58:00 Test Item Value Reference Range Interpretation Comments Ethanol (test code < 3 mg/dL The pharm acological = ETOH) response to blo od alcohol levels mayvary from individual to i ndividual. The fatal surinder ntrationhas been reported t o be >400mg/dL. [id number] 01:47:56 Test Item Value Reference Range Interpretation Comments Sweeny (test code = 0.7 mmol/L 0.6-1.2 [id number]) JUAN ALBERTO (test code = JUAN ALBERTO) Toxic Range: ? Greater than 1.2 mmol/L Lab Interpretation (test Normal code = 63150-4) [id number] 00:26:53 Test Item Value Reference Interpretation Comments Range TROPONIN I (test 0.002 ng/mL See_Comment [Automated code = [id number]) message] The system which generated this result [...] biotin. Lab Interpretation Normal (test code = 91588-1) [facility] CenterETHANOL2022-08-01 00:18:52 ALCOHOL<10mg/dL01/19/2022 7:18 PM [facility]<10 [id number] Toxic>100 Depression of RIPSAWYER>400 Fatalities ReportedUnCHRISTUS [facility]ohn [facility] AliceCOMP. METABOLIC PANEL ([id number]) 2022-01-20 00:16:16 Test Item Value Reference Range Interpretation Comments NA (test code = 137 mmol/L 135-145 9666613259) K (test code = 4.5 mmol/L 3.5-5 1231992412) CL (test code = 103 mmol/L 98-108 5485465904) CO2 TOTAL (test code = 26 mmol/L -31 6183939769) AGAP (test code = 2-16 7863003457) BUN (test code = 10 mg/dL 7-23 4636496394) GLUCOSE (test code = 121 mg/dL 70-110 H 9848843392) CREATININE (test code = 0.65 mg/dL 0.6-1.25 7896865786) TOTAL BILI (test code = 0.8 mg/dL 0.1-1.9 6271730155) CALCIUM (test code = 11.4 mg/dL 8.6-10.6 H 6758404166) T PROTEIN (test code = 7.2 g/dL 6.3-8.2 6307332421) ALBUMIN (test code = 4.6 g/dL 3.5-5 3114378585) ALK PHOS (test code = 112 U/L 34-122 1350892335) ALTv (test code = 19 U/L 5-50 1742-6) AST(SGOT) (test code = 26 U/L 13-40 1136959457) eGFR (test code = mL/min/1.73m2 2058495563) JUAN ALBERTO (test code = JUAN ALBERTO) [...] tests). Lab Interpretation Abnormal (test code = 52534-7) [facility] WITH [id number] 23:43:54 Test Item Value Reference Range Interpretation Comments WBC (test code = See_Comment [Automated 6690-2) message] The sy stem which generated this result transmitted reference range : 4.20 - 10.70 10*3/?L. The reference range was not used to interpret this result as normal/abnormal . RBC (test code = See_Comment [Automated 789-8) message] The sy stem which generated this result transmitted reference range : 4.26 - 5.52 10*6/?L. The reference range was not used to interpret this result as normal/abnormal . HGB (test code = 15.6 g/dL 12.2-16.4 718-7) HCT (test code = 45.3 % 38.4-49.3 4544-3) MCV (test code = 94.0 fL 81.7-95.6 787-2) MCH (test code = 32.4 pg 26.1-32.7 785-6) MCHC (test code = 34.4 g/dL 31.2-35 786-4) RDW-SD (test code = 44.0 fL 38.5-51.6 82049-2) RDW-CV (test code = 12.6 % 12.1-15.4 788-0) PLT (test code = See_Comment [Automated 777-3) message] The sy stem which generated this result transmitted reference range : 150 - 328 10*3/ ?L. The reference r elba was not used to interpret this result as normal/abnormal . MPV (test code = 9.1 fL 9.8-13 L 79569-4) NRBC/100 WBC (test See_Comment [Automat ed code = 5011018168) message] The system which generated this result transmitted reference range : 0.0 - 10.0 /100 WBCs. The refer ence range was not u sed to interpret th is result as normal/abnormal . NRBC x10^3 (test code See_Comment [Auto mated = 7424157188) message] The s ystem which generated this result transmitted reference range : 10*3/?L. The reference range was not used to interpret this result as normal/abnormal . GRAN MAT (NEUT) % 69.8 % (test code = 770-8) IMM GRAN % (test code 0.40 % = 2492236444) LYMPH % (test code = 18.0 % 736-9) MONO % (test code = 10.9 % 5905-5) EOS % (test code = 0.1 % 713-8) BASO % (test code = 0.8 % 706-2) GRAN MAT x10^3(ANC) 5.58 10*3/uL 1.99-6.95 (test code = 1881322601) IMM GRAN x10^3 (test 0.03 10*3/uL 0-0.06 code = 7552961346) LYMPH x10^3 (test code 1.44 10*3/uL 1.09-3.23 = 731-0) MONO x10^3 (test code 0.87 10*3/uL 0.36-1.02 = 742-7) EOS x10^3 (test code = 0.06-0.53 L 711-2) BASO x10^3 (test code 0.06 10*3/uL 0.01-0.09 = 704-7) Lab Interpretation Abnormal (test code = 48986-0) [facility] GLUCOSE (AUTOMATED)2022-01-19 22:27:41 Test Item Value Reference Range Interpretation Comments POCT GLU (test code = 1726169239) 123 mg/dL 70-110 H Lab Interpretation (test code = Abnormal 71860-2) [facility] GLUCOSE (AUTOMATED)2021-12-30 22:08:16 Test Item Value Reference Range Interpretation Comments POCT GLU (test code = 8819480218) 167 mg/dL 70-110 H Lab Interpretation (test code = Abnormal 96378-5) [facility] GLUCOSE (AUTOMATED)2021-12-30 16:50:40 Test Item Value Reference Range Interpretation Comments POCT GLU (test code = 4635698860) 154 mg/dL 70-110 H Lab Interpretation (test code = Abnormal 85601-7) [facility] GLUCOSE (AUTOMATED)2021-12-30 12:38:43 Test Item Value Reference Range Interpretation Comments POCT GLU (test code = 0429413500) 164 mg/dL 70-110 H Lab Interpretation (test code = Abnormal 24187-6) [facility] GLUCOSE (AUTOMATED)2021-12-30 02:14:58 Test Item Value Reference Range Interpretation Comments POCT GLU (test code = 3779547851) 220 mg/dL 70-110 H Lab Interpretation (test code = Abnormal 28750-3) [facility] GLUCOSE (AUTOMATED)2021-12-29 21:50:02 Test Item Value Reference Range Interpretation Comments POCT GLU (test code = 4725619967) 191 mg/dL 70-110 H Lab Interpretation (test code = Abnormal 44660-7) [facility] GLUCOSE (AUTOMATED)2021-12-29 20:15:01 Test Item Value Reference Range Interpretation Comments POCT GLU (test code = 4313055245) 163 mg/dL 70-110 H Lab Interpretation (test code = Abnormal 88210-9) [facility]29 19:12:22 Test Item Value Reference Range Interpretation Comments Height (test code = in 0115400095) Weight (test code = lbs 4870803942) Systolic BP (test code = mmHg 1101322360) Diastolic BP (test code mmHg = 5460775542) Heart Rate (test code = bpm 9856454940) BSA (test code = 1.62 m2 1889544530) Ao root annulus (test 2.45 cm code = 1869510610) Ao root diam (test code 2.45 cm = 7184605701) Aortic root (test code = 2.45 cm 8920408222) ACS (test code = 1.66 cm 2125925073) LA size (test code = 3.2 cm 8521309038) LVOT diameter (test code 1.95 cm = 1170110759) LVIDD (test code = 3.60 cm 0579529079) IVS (test code = 0.94 cm 0378906892) Interventricular Septum 0.94 cm Diastolic Thickness by 2D (test code = 0794758) LVPWD (test code = 0.80 cm 1686792490) PW (test code = 0.80 cm 0.6-1.3 9246860609) EF(Teich) (test code = 52.80 % 7493462826) LVIDS (test code = 2.60 cm 6541015885) FS (test code = 27 % 8304492960) EF - 2D (test code = 52.80 % 59864363) LAV(MOD-sp4) (test code 16.80 mL = 8637413273) MV Peak E Jovany (test code 46.1 cm/s = 5130889845) E wave decelartion time 0.31 s (test code = 3861423594) MV Peak A Jovany (test code 58.1 cm/s = 7005550007) E/A ratio (test code = ratio 7956507767) MV E/e' septal (test 5.7 cm/s code = 5264687069) Tapse (test code = 1.60 cm 2720594783) LVOT stroke volume (test 52.10 cm3 code = 0171659729) LVOT peak jovany (test code 110.6 cm/s = 5626040624) LVOT mn grad (test code mmHg = 9052772489) AV LVOT peak gradient mmHg (test code = 4616852533) LVOT peak VTI (test code 17.4 cm = 5596690023) LV V1 mean (test code = 66.10 cm/s 7366203873) Aortic valve mean 73.0 cm/s velocity (test code = 4702162095) Ao peak jovany (test code = 124.6 cm/s 0568266886) Ao VTI (test code = 18.6 cm 8221245989) AV area by cont VTI 2.8 cm2 (test code = 1631051556) AV area peak jovany (test 2.7 cm2 code = 9990043444) Ao max PG (test code = 6.20 mm[Hg] 5309019709) AV peak gradient (test mmHg code = 4787515011) AV valve area (test code 2.80 cm2 = 8708583539) AV mean gradient (test mmHg code = 9048765443) Radiology Study observation (narrative) (test code = 07780-3) JUAN ALBERTO (test code = JUAN ALBERTO) [...] mL of Lumason ultrasound enhancing agent used. [facility]2021-12-29 12:50:31 Test Item Value Reference Range Interpretation Comments POCT GLU (test code = 9278458161) 141 mg/dL 70-110 H Lab Interpretation (test code = Abnormal 33232-0) [facility] CenterT[facility] [id number] 10:38:31 Test Item Value Reference Interpretation Comments Range TROPONIN I (test 0.003 ng/mL See_Comment [Automated code = 7215754328) message] The system which generated this result [...] biotin. Lab Interpretation Normal (test code = 54912-5) [facility] CenterLIP[facility] (70912)(TOTAL CHOLESTEROL, TRIGLYCERIDES, HDL)2021-12-29 05:56:47 Test Item Value Reference Range Interpretation Comments CHOL (test code = 168 mg/dL 120-200 5591605861) HDL (test code = 102 mg/dL See_Comment [Automated message] 2856484777) The system [employer] generated this result transmit naomie reference range : >=40. The refer ence range was not u sed to interpret th is result as normal/abnormal . HDLC RATIO (test code = See_Comment [Au tomated message] 8550482350) The system [employer] generated this result transmit naomie reference range : <=5.0. The refe rence range was not u sed to interpret th is result as normal/abnormal . TRIG (test code = 55 mg/dL 30-170 4147788555) LDL CHOL (test code = 55 mg/dL See_Comment [Auto mated message] 33237-8) The system [employer] generated this result transmit naomie reference range : <=160. The refe rence range was not u sed to interpret th is result as normal/abnormal . VLDL (test code = 11 mg/dL 5-60 7357496398) Lab Interpretation (test Normal code = 89140-9) [facility]orm[facility] (TSH)2021-12-29 05:40:29 Test Item Value Reference Range Interpretation Comments TSH (test code = See_Comment Biotin has been 7961409449) reported to cau se a negative bias, interpret resul ts relative to pat ient's use of biotin. [Automated mess age] The system [employer] generated this result transmitted ref erence range: 0.45 - 4 .70 mIU/L. The refe rence range was not u sed to interpret this result as normal/abnor mal. Lab Interpretation (test Normal code = 56237-8) [facility] CenterTroponin [id number] 05:34:29 Test Item Value Reference Interpretation Comments Range TROPONIN I (test 0.006 ng/mL See_Comment [Automated code = 9571080288) message] The system which generated this result [...] biotin. Lab Interpretation Normal (test code = 43632-5) [facility]OL[facility] 04:43:01 ALCOHOL<10mg/dL12/28/2021 11:43 PM [facility]Toxic Greater than or equal to 80 mg/dL. NOTE: Whole blood values are approximately 10% to 15% lower than serum and plasma.[facility] CenterGlycosylated Hemoglobin (A1C)2021-12-29 01:51:44 Test Item Value Reference Range Interpretation Comments HGB A1C (test code = 6.5 % 4-5.7 H 4548-4) JUAN ALBERTO (test code = JUAN ALBERTO) Reference RangesNormal: <5.7%Prediabetes: 5.7 - 6.4%Diabetes: > 6.5% Lab Interpretation (test Abnormal code = 95200-5) [facility] CenterTROPONIN [id number] 21:26:50 Test Item Value Reference Interpretation Comments Range TROPONIN I (test 0.002 ng/mL See_Comment [Automated code = 1547366480) message] The system which generated this result [...] biotin. Lab Interpretation Normal (test code = 42838-8) [facility] CenterN-TERMINAL [id number] 21:23:29 Test Item Value Reference Range Interpretation Comments NT-proBNP (test code 41 pg/mL See_Comment [Autom ated = 7937988734) message] The system which generated this result transmitted reference range : <=125. The reference range was not used to interpret this result as normal/abnormal . JUAN ALBERTO (test code = JUAN ALBERTO) Biotin has been reported to cause a negative bias, interpret results relative to patient's use of biotin. Lab Interpretation Normal (test code = 15258-6) [facility] CenterAMMONIA, [id number] 21:20:38 Test Item Value Reference Range Interpretation Comments AMMONIA (test code = 9-33 L Slight hemolysis 3935879402) Lab Interpretation (test Abnormal code = 16362-0) [facility] CenterCOMP[facility] MET[facility]OLIC PANEL (93067)2021-12-28 21:08:48 Test Item Value Reference Range Interpretation Comments NA (test code = 137 mmol/L 135-145 4723401968) K (test code = 4.5 mmol/L 3.5-5 4628015290) CL (test code = 97 mmol/L 98-108 L 4454401444) CO2 TOTAL (test code = 29 mmol/L 23-31 7301296025) AGAP (test code = 2-16 3191529331) BUN (test code = 10 mg/dL 7-23 0331529137) GLUCOSE (test code = 188 mg/dL 70-110 H 6481300072) CREATININE (test code = 0.58 mg/dL 0.6-1.25 L 5580546915) TOTAL BILI (test code = 0.8 mg/dL 0.1-1.8 4371463234) CALCIUM (test code = 10.5 mg/dL 8.6-10.6 5790329808) T PROTEIN (test code = 7.6 g/dL 6.3-8.2 1175236202) ALBUMIN (test code = 4.5 g/dL 3.5-5 9507991937) ALK PHOS (test code = 107 U/L 34-122 7977420622) ALTv (test code = 66 U/L 5-50 H 1742-6) AST(SGOT) (test code = 96 U/L 13-40 H 4033745651) eGFR (test code = mL/min/1.73m2 7153826180) JUAN ALBERTO (test code = JUAN ALBERTO) [...] tests). Lab Interpretation Abnormal (test code = 70980-0) [facility] CenterPROTHROMBIN TIME / [id number] 21:01:25 Test Item Value Reference Range Interpretation Comments PROTIME PATIENT (test See_Comment [Auto mated message] code = 5964-2) The system [employer] generated this result transmitted ref erence range: 12.0 - 1 4.7 Seconds. The re ference range was not u sed to interpret this result as normal/abnor mal. INR (test code = 6301-6) Nor mal INR <1.1; Warfarin Therap eutic range 2.0 to 3. 0 or 2.5 to 3.5, dep ending upon the indica tions. Lab Interpretation (test Normal code = 71760-8) [facility] WITH [id number] 20:54:03 Test Item Value Reference Range Interpretation Comments WBC (test code = See_Comment [Automated 6690-2) message] The sy stem which generated this result transmitted reference range : 4.20 - 10.70 10*3/?L. The reference range was not used to interpret this result as normal/abnormal . RBC (test code = See_Comment [Automated 789-8) message] The sy stem which generated this [...] RDW-SD (test code = 47.8 fL 38.5-51.6 14913-6) RDW-CV (test code = 13.3 % 12.1-15.4 788-0) PLT (test code = See_Comment [Automated 777-3) message] The sy stem which generated this result transmitted reference range : 150 - 328 10*3/ ?L. The reference r elba was not used to interpret this result as normal/abnormal . MPV (test code = 8.6 fL 9.8-13 L 16854-5) NRBC/100 WBC (test See_Comment [Automat ed code = 3608811366) message] The system which generated this result transmitted reference range : 0.0 - 10.0 /100 WBCs. The refer ence range was not u sed to interpret th is result as normal/abnormal . NRBC x10^3 (test code See_Comment [Auto mated = 8270139714) message] The s ystem which generated this result transmitted reference range : 10*3/?L. The reference range was not used to interpret this result as normal/abnormal . GRAN MAT (NEUT) % 64.1 % (test code = 770-8) IMM GRAN % (test code 0.40 % = 1803143740) LYMPH % (test code = 16.6 % 736-9) MONO % (test code = 17.2 % 5905-5) EOS % (test code = 0.2 % 713-8) BASO % (test code = 1.5 % 706-2) GRAN MAT x10^3(ANC) 3.47 10*3/uL 1.99-6.95 (test code = 9479948710) IMM GRAN x10^3 (test 0-0.06 code = 6808513986) LYMPH x10^3 (test code 0.90 10*3/uL 1.09-3.23 L = 731-0) MONO x10^3 (test code 0.93 10*3/uL 0.36-1.02 = 742-7) EOS x10^3 (test code = 0.06-0.53 L 711-2) BASO x10^3 (test code 0.08 10*3/uL 0.01-0.09 = 704-7) Lab Interpretation Abnormal (test code = 56779-7) [facility] CenterEthanol [id number] 21:08:00 Test Item Value Reference Range Interpretation Comments Ethanol (test code < 3 mg/dL The pharm acological = ETOH) response to blo od alcohol levels mayvary from individual to i ndividual. The fatal surinder ntrationhas been reported t o be >400mg/dL. Complete Blood Count Auto [id number] 17:33:00 Test Item Value Reference Range Interpretation Comments White Blood Count (test code = 9.1 x10 3/uL 4.4-10.5 N WBCT) Red Blood Count (test code = 4.58 x10 6/uL 4.10-5.70 N RBC) Hemoglobin (test code = HGBT) 14.6 g/dL 13.4-17.4 N Hematocrit (test code = HCTT) 45.4 % 38.7-52.0 N Mean Corpuscular Volume (test 99.10 fL 80.00-100.00 N code = MCV) Mean Corpuscular Hemoglobin 31.9 pg 27.0-32.5 N (test code = MCH) Mean Corpuscular HGB Conc 32.20 g/dL 32.00-37.50 N (test code = MCHC) RDW Coefficient of Variation 12.7 % 11.5-14.5 N (test code = RDWCV) Platelet Count (test code = 289.0 x10 3/uL 140.0-440.0 N PLTT) Mean Platelet Volume (test 9.4 fL code = MPV) Immature Granulocytes % (Auto) 0.2 % 0.0-5.0 N (test code = IMMGRAN%) Neutrophils % (Auto) (test 66.7 % 36.0-70.0 N code = NE%) Lymphocytes % (Auto) (test 20.4 % 12.0-44.0 N code = LY%) Monocytes % (Auto) (test code 10.7 % 0.0-11.0 N = MO%) Eosinophils % (Auto) (test 1.0 % 0.0-7.0 N code = EO%) Basophils % (Auto) (test code 1.0 % 0.0-2.0 N = BA%) Immature Granulocytes # (Auto) 0.02 x10 3/uL (test code = IMMGRAN#) Neutrophils # (Auto) (test 6.1 x10 3/uL 1.6-7.4 N code = NE#) Lymphocytes # (Auto) (test 1.86 x10 3/uL 0.50-4.60 N code = LY#) Monocytes # (Auto) (test code 0.97 x10 3/uL 0.00-1.20 N = MO#) Eosinophils # (Auto) (test 0.09 x10 3/uL 0.00-0.74 N code = EO#) Basophils # (Auto) (test code 0.09 x10 3/uL 0.00-0.21 N = BA#) nRBC Abs (test code = NRBCA) 0 nRBC Pct (test code = NRBCP) 0 % UA, Urinalysis Rflx Cult/[id number] 17:33:00 Test Item Value Reference Range Interpretation Comments Color,Urine (test code = UCOL) Dark Yellow Yellow A Clarity,Urine (test code = Clear Clear UCLAR) Ph, Urine (test code = UPH) 6.5 5.0-9.0 N Specific [place],Urine (test 1.015 1.005-1.030 N code = USG) Blood,Urine (test code = UBLD) Negative mg/dL Negative Protein,Urine (test code = Negative mg/dL Negative UPRO) Glucose,Urine (UA) (test code 100 mg/dL Negative A = UGLU) Ketones,Urine (test code = Trace mg/dL Negative A UKET) Nitrate,Urine (test code = Negative Negative UNIT) Bilirubin,Urine (test code = Negative mg/dL Negative UBIL) Urobilinogen,Urine (test code 4.0 E.U./dL Normal A = UURO) Leukocyte Esterase,Urine (test Trace mg/dL Negative A code = ULEU) Urine [id number] 17:33:00 Test Item Value Reference Range Interpretation Comments RBC,Urine (test code = URBCUF) None Seen /HPF 0-2 WBC,Urine (test code = UWBCUF) 0-5 /HPF 0-5 Epithelial Cell,Urine (test 0-5 /HPF 0-5 code = UECUF) Casts,Urine (test code = None Seen /LPF None Seen UCASTUF) Bacteria,Urine (test code = None Seen /hpf None Seen UBACTUF) Drug Screen,[id number] 17:33:00 Test Item Value Reference Range Interpretation Comments PCP Phencyclidine Negative Negative Screen,Urine (test code = PCPU) Amphetamine Positive Negative A Confirmation by GC/MS Screen,Urine (test code not routinely = AMPU) performed. Ifconfirmation is required, an or rika must be placed. Methadone Screen,Urine Negative Negative (test code = METHU) Opiate Screen,Urine Negative Negative (test code = UOPIS) Barbituates Negative Negative Screen,Urine (test code = BARBU) Benzodiazepines Negative Negative Screen,Urine (test code = UBENZS) Cocaine Screen,Urine Negative Negative (test code = UCOCS) Cannabinoid Negative Negative Screen,Urine (test code = UTHCS) Propoxyphene Screen, Negative Negative Urine (test code = UPROP) Comprehensive Metabolic [id number] 17:33:00 Test Item Value Reference Range Interpretation Comments SODIUM (test code = NA) 141.0 mmol/L 136.0-145.0 N Potassium,K (test code = K) 3.7 mmol/L 3.0-5.1 N Chloride (test code = CL) 107 mmol/L 98-107 N Carbon Dioxide (test code = CO2) 31 mmol/L 20-31 N Anion Gap (test code = GAP) 3 mmol/L 5-15 L Blood Urea Nitrogen (test code = 11 mg/dL 9-23 N BUN) Creatinine (test code = CREATT) 0.87 mg/dL 0.55-1.02 N Creatinine Clr Calc Pharmacy 80.84 mL/min (test code = CRCLPHA) Estimated GFR ( Aimee > 60 mL/min/1.73m2 (test code = EGFRAA) Estimated GFR (Non Afr Aimee > 60 mL/min/1.73m2 (test code = EGFRNAA) BUN/Creatinine Ratio (test code 13 ratio 10-20 N = BCRATIO) Glucose (test code = GLU) 138 mg/dL 74-106 H Osmolality,Calculated (test code 292.9 = OSMOC) Calcium (test code = CA) 10.3 mg/dL 8.3-10.6 N Bilirubin,Total (test code = 1.0 mg/dL 0.2-1.1 N BILIT) Aspartate Amino Transferase 40 U/L 0-34 H (test code = AST) Alanine Aminotransferase (test 31 U/L 10-49 N code = ALT) Total Protein (test code = TP) 6.7 g/dL 5.7-8.2 N Albumin Level (test code = ALB) 4.3 g/dL 3.2-4.8 N Globulin (test code = GLOB) 2.4 mg/dL 2.3-3.5 N Albumin/Globulin Ratio (test 1.8 ratio 0.8-2.0 N code = AGRATIO) Alkaline Phosphatase (test code 101 U/L 46-116 N = ALP) Sars-CoV-2/FLU A/B RSV [id number] 17:31:00 Test Item Value Reference Range Interpretation Comments Sars-CoV-2/FLU A/B For use under Emergency RSV PCR (test code = Use Authorization (EUA) SARSFLURSVPCR) only. Sars-CoV-2/FLU A/B Reference Range: RSV PCR (test code = Negative SARSFLURSVPCR1.1) Influenza A PCR: Negative by Nucleic Acid (test code = Amplification Influenza A PCR:) Influenza B PCR: Negative by Nucleic Acid (test code = Amplification Influenza B PCR:) RSV PCR Result: (test Negative by Nucleic Acid code = RSV PCR Amplification Result:) SARS-CoV-2 PCR Negative by RT-PCR Result: (test code = SARS-CoV-2 PCR Result:) Drug Screen,[id number] 17:20:00 Test Item Value Reference Range Interpretation Comments PCP Phencyclidine Screen,Urine (test Negative Negative code = PCPU) Amphetamine Screen,Urine (test code Negative Negative = AMPU) Methadone Screen,Urine (test code = Negative Negative METHU) Opiate Screen,Urine (test code = Negative Negative UOPIS) Barbituates Screen,Urine (test code Negative Negative = BARBU) Benzodiazepines Screen,Urine (test Positive Negative A code = UBENZS) Cocaine Screen,Urine (test code = Negative Negative UCOCS) Cannabinoid Screen,Urine (test code Negative Negative = UTHCS) Propoxyphene Screen, Urine (test Negative Negative code = UPROP) Complete Blood Count Auto [id number] 17:14:00 Test Item Value Reference Range Interpretation Comments White Blood Count (test code = 9.6 x10 3/uL 4.4-10.5 N WBCT) Red Blood Count (test code = 4.44 x10 6/uL 4.10-5.70 N RBC) Hemoglobin (test code = HGBT) 14.3 g/dL 13.4-17.4 N Hematocrit (test code = HCTT) 44.9 % 38.7-52.0 N Mean Corpuscular Volume (test 101.10 fL 80.00-100.00 H code = MCV) Mean Corpuscular Hemoglobin 32.2 pg 27.0-32.5 N (test code = MCH) Mean Corpuscular HGB Conc 31.80 g/dL 32.00-37.50 L (test code = MCHC) RDW Coefficient of Variation 12.4 % 11.5-14.5 N (test code = RDWCV) Platelet Count (test code = 249.0 x10 3/uL 140.0-440.0 N PLTT) Mean Platelet Volume (test 8.2 fL code = MPV) Immature Granulocytes % (Auto) 0.3 % 0.0-5.0 N (test code = IMMGRAN%) Neutrophils % (Auto) (test 53.4 % 36.0-70.0 N code = NE%) Lymphocytes % (Auto) (test 33.3 % 12.0-44.0 N code = LY%) Monocytes % (Auto) (test code 12.5 % 0.0-11.0 H = MO%) Eosinophils % (Auto) (test 0.0 % 0.0-7.0 N code = EO%) Basophils % (Auto) (test code 0.5 % 0.0-2.0 N = BA%) Immature Granulocytes # (Auto) 0.03 x10 3/uL (test code = IMMGRAN#) Neutrophils # (Auto) (test 5.1 x10 3/uL 1.6-7.4 N code = NE#) Lymphocytes # (Auto) (test 3.20 x10 3/uL 0.50-4.60 N code = LY#) Monocytes # (Auto) (test code 1.20 x10 3/uL 0.00-1.20 N = MO#) Eosinophils # (Auto) (test 0.00 x10 3/uL 0.00-0.74 N code = EO#) Basophils # (Auto) (test code 0.05 x10 3/uL 0.00-0.21 N = BA#) nRBC Abs (test code = NRBCA) 0 nRBC Pct (test code = NRBCP) 0 % Comprehensive Metabolic [id number] 17:14:00 Test Item Value Reference Range Interpretation Comments SODIUM (test code = NA) 138.0 mmol/L 136.0-145.0 N Potassium,K (test code = K) 4.1 mmol/L 3.0-5.1 N Chloride (test code = CL) 107 mmol/L 98-107 N Carbon Dioxide (test code = 24 mmol/L 20-31 N CO2) Anion Gap (test code = GAP) 7 mmol/L 5-15 N Blood Urea Nitrogen (test code 9 mg/dL 9-23 N = BUN) Creatinine (test code = CREATT) 0.46 mg/dL 0.55-1.02 L Creatinine Clr Calc Pharmacy 179.62 mL/min (test code = CRCLPHA) Estimated GFR ( Aimee > 60 mL/min/1.73m2 (test code = EGFRAA) Estimated GFR (Non Afr Aimee > 60 mL/min/1.73m2 (test code = EGFRNAA) BUN/Creatinine Ratio (test code 20 ratio 10-20 N = BCRATIO) Glucose (test code = GLU) 154 mg/dL 74-106 H Osmolality,Calculated (test 287.2 code = OSMOC) Calcium (test code = CA) 8.2 mg/dL 8.3-10.6 L Bilirubin,Total (test code = 0.3 mg/dL 0.2-1.1 N BILIT) Aspartate Amino Transferase 76 U/L 0-34 H (test code = AST) Alanine Aminotransferase (test 101 U/L 10-49 H code = ALT) Total Protein (test code = TP) 6.2 g/dL 5.7-8.2 N Albumin Level (test code = ALB) 4.2 g/dL 3.2-4.8 N Globulin (test code = GLOB) 2.0 mg/dL 2.3-3.5 L Albumin/Globulin Ratio (test 2.1 ratio 0.8-2.0 H code = AGRATIO) Alkaline Phosphatase (test code 207 U/L 46-116 H = ALP) Ethanol [id number] 17:14:00 Test Item Value Reference Range Interpretation Comments Ethanol (test code = ETOH) 192 mg/dL Complete Blood Count Auto [id number] 20:20:00 Test Item Value Reference Range Interpretation Comments White Blood Count (test code = 7.6 x10 3/uL 4.4-10.5 N WBCT) Red Blood Count (test code = 4.40 x10 6/uL 4.10-5.70 N RBC) Hemoglobin (test code = HGBT) 14.3 g/dL 13.4-17.4 N Hematocrit (test code = HCTT) 44.0 % 38.7-52.0 N Mean Corpuscular Volume (test 100.00 fL 80.00-100.00 N code = MCV) Mean Corpuscular Hemoglobin 32.5 pg 27.0-32.5 N (test code = MCH) Mean Corpuscular HGB Conc 32.50 g/dL 32.00-37.50 N (test code = MCHC) RDW Coefficient of Variation 12.6 % 11.5-14.5 N (test code = RDWCV) Platelet Count (test code = 282.0 x10 3/uL 140.0-440.0 N PLTT) Mean Platelet Volume (test 8.4 fL code = MPV) Immature Granulocytes % (Auto) 0.3 % 0.0-5.0 N (test code = IMMGRAN%) Neutrophils % (Auto) (test 65.3 % 36.0-70.0 N code = NE%) Lymphocytes % (Auto) (test 25.0 % 12.0-44.0 N code = LY%) Monocytes % (Auto) (test code 8.9 % 0.0-11.0 N = MO%) Eosinophils % (Auto) (test 0.0 % 0.0-7.0 N code = EO%) Basophils % (Auto) (test code 0.5 % 0.0-2.0 N = BA%) Immature Granulocytes # (Auto) 0.02 x10 3/uL (test code = IMMGRAN#) Neutrophils # (Auto) (test 5.0 x10 3/uL 1.6-7.4 N code = NE#) Lymphocytes # (Auto) (test 1.90 x10 3/uL 0.50-4.60 N code = LY#) Monocytes # (Auto) (test code 0.68 x10 3/uL 0.00-1.20 N = MO#) Eosinophils # (Auto) (test 0.00 x10 3/uL 0.00-0.74 N code = EO#) Basophils # (Auto) (test code 0.04 x10 3/uL 0.00-0.21 N = BA#) nRBC Abs (test code = NRBCA) 0 nRBC Pct (test code = NRBCP) 0 % Comprehensive Metabolic [id number] 20:20:00 Test Item Value Reference Range Interpretation Comments SODIUM (test code = NA) 140.0 mmol/L 136.0-145.0 N Potassium,K (test code = K) 4.0 mmol/L 3.0-5.1 N Chloride (test code = CL) 107 mmol/L 98-107 N Carbon Dioxide (test code = CO2) 27 mmol/L 20-31 N Anion Gap (test code = GAP) 6 mmol/L 5-15 N Blood Urea Nitrogen (test code = 8 mg/dL 9-23 L BUN) Creatinine (test code = CREATT) 0.81 mg/dL 0.55-1.02 N Creatinine Clr Calc Pharmacy 87.81 mL/min (test code = CRCLPHA) Estimated GFR ( Aimee > 60 mL/min/1.73m2 (test code = EGFRAA) Estimated GFR (Non Afr Aimee > 60 mL/min/1.73m2 (test code = EGFRNAA) BUN/Creatinine Ratio (test code 10 ratio 10-20 N = BCRATIO) Glucose (test code = GLU) 128 mg/dL 74-106 H Osmolality,Calculated (test code 289.8 = OSMOC) Calcium (test code = CA) 9.1 mg/dL 8.3-10.6 N Bilirubin,Total (test code = 0.2 mg/dL 0.2-1.1 N BILIT) Aspartate Amino Transferase 24 U/L 0-34 N (test code = AST) Alanine Aminotransferase (test 27 U/L 10-49 N code = ALT) Total Protein (test code = TP) 6.4 g/dL 5.7-8.2 N Albumin Level (test code = ALB) 4.5 g/dL 3.2-4.8 N Globulin (test code = GLOB) 1.9 mg/dL 2.3-3.5 L Albumin/Globulin Ratio (test 2.4 ratio 0.8-2.0 H code = AGRATIO) Alkaline Phosphatase (test code 189 U/L 46-116 H = ALP) Ethanol [id number] 20:20:00 Test Item Value Reference Range Interpretation Comments Ethanol (test code = ETOH) 10 mg/dL Sars-CoV-2/FLU A/B RSV [id number] 20:20:00 Test Item Value Reference Range Interpretation Comments Sars-CoV-2/FLU A/B For use under Emergency RSV PCR (test code = Use Authorization (EUA) SARSFLURSVPCR) only. Sars-CoV-2/FLU A/B ical-devices/emergency-u RSV PCR (test code = se-authorizations. SARSFLURSVPCR1.1) Influenza A PCR: Negative by Nucleic Acid (test code = Amplification Influenza A PCR:) Influenza B PCR: Negative by Nucleic Acid (test code = Amplification Influenza B PCR:) RSV PCR Result: (test Negative by Nucleic Acid code = RSV PCR Amplification Result:) SARS-CoV-2 PCR Negative by Nucleic Acid Result: (test code = Amplification SARS-CoV-2 PCR Result:) UA, Urinalysis [id number] 20:20:00 Test Item Value Reference Range Interpretation Comments Color,Urine (test code = Yellow Y UCOL) Clarity,Urine (test code = Clear Clear UCLAR) PH,Urine (test code = 7.0 5.5-8.5 UPH.XX) Specific [place],Urine 1.020 1.005-1.030 N (test code = USG) Blood,Urine (test code = Negative cells/uL Negative UBLD) Protein,Urine (test code = Negative mg/dL Negative UPRO) Glucose,Urine (UA) (test 100 mg/dL Negative A code = UGLU) Ketones,Urine (test code = Negative mg/dL Negative UKET) Nitrate,Urine (test code = Negative Negative UNIT) Bilirubin,Urine (test code Negative mg/dL Negative = UBIL) Urobilinogen,Urine (test 0.2 mg/dL Negative code = UURO) Leukocyte Esterase,Urine Negative cells/uL Negative (test code = ULEU) Drug Screen,[id number] 20:20:00 Test Item Value Reference Range Interpretation Comments PCP Phencyclidine Negative Negative Screen,Urine (test code = PCPU) Amphetamine Screen,Urine Negative Negative (test code = AMPU) Methadone Screen,Urine (test Negative Negative code = METHU) Opiate Screen,Urine (test Negative Negative code = UOPIS) Barbituates Screen,Urine Negative Negative (test code = BARBU) Benzodiazepines Screen,Urine Negative Negative (test code = UBENZS) Cocaine Screen,Urine (test Negative Negative code = UCOCS) Propoxyphene Screen, Urine Negative Negative (test code = UPROP) Cannabinoid Screen,Urine Negative RES ULT TO FOLLOW (test code = UTHCS) CT head/brain wo con [facility] [address] [place] [address] Patient Name: Walt Velazquez Medical Record#: [id number] Address: Homeless City/State/Zip: [place] [address]: Vinnie Navarro MD Phone: Insurance: Self Pay /Age/Sex: 1970/50/M Admit/Reg Date: 09/17/[address]: Vinnie Navarro MD Location: [facility]/ PCP: Pcp-Md KERWIN Stiles Date of Service: 09/17/21 Order (s): CT head/brain wo con CPT Code: 85129 Report Number: [id number] Reason for Exam: Altered mental status Location [...] midline frontal region (forehead), measuring 1 cm. Vi sual inspection. Electronically signed by: Karen Jay MD 09/17/2021 6:42 PM CDT Dictated By: Karen Sanders MD 09/17/211824 Signed By: Karen Sanders MD 09/17/211824 TD/TT: 09/17/211824 Tech: [id number] cc: JOSEE; GENESIS* Vinnie Navarro MD; Pcp-Md KERWIN Stiles"
--- NOTE | 2022-03-22 22:49 | RAD REPORT ---
EXAM DESCRIPTION: CT - CTHCSPWOC - 03/22/2022 10:26 pm CLINICAL HISTORY: fall with seizure COMPARISON: <Comparisons>CT head and cervical 05/09/2021 TECHNIQUE: Axial 5 mm thick images of the head were obtained. Axial 2 mm thick images of the cervic al spine were obtained with sagittal and coronal reconstruction images generated and reviewed. All CT scans are performed using dose optimization technique as appropriate and may include automated exposure control or mA/KV adjustment according to patient size. FINDINGS: No intracranial hemorrhage, mass, edema or acute intracranial finding. No suspicion for ac [place] infarction. No extra-axial fluid collections. Mastoid air cells and paranasal sinuses are clear. No globe or orbit abnormality seen. No significant scalp hematoma. Volume loss changes are present gr eater than expected for age. These findings are stable. Cervical body height and alignment are normal. C5-6 and C6-7 disc space narrowing present. No fractur e or acute bony abnormality. Large anterior spurs are present with bridging ossification present fusi ng C4-5. There is probable fusion or partial fusion of C5-6 as well is C6-C7. Bridging ossification s pans into the upper thoracic spine as well. Bony foraminal stenosis seen at multiple levels. Large an terior spurs are present at C3-4. Central canal detail is inherently limited. No paraspinal mass or hematoma. IMPRESSION: No hemorrhage, edema or acute intracranial finding. Advanced for age volume loss changes match prior imaging. No fracture or acute cervical spine finding. 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
--- NOTE | 2022-03-22 23:12 | EDPHYS ---
Physician Documentation [facility] Name: Walt Velazquez Age: 51 yrs Sex: Male : 1970 Arrival Date: 03/22/2022 Time: 20:54 Bed 15 Private MD: ED Physician Rudy Chavez HPI: 03/23 19:00 This 51 yrs old Male presents to ER via EMS with unknown complaint. kdr 19:00 Patient is reported to have had a seizure 30 minutes prior to arrival. This information kdr provided by EMS. Patient reports falling and hitting his head on the curb of the street. He is currently ANO x4 and stable. He has no evidence of trauma at this time is nontoxic-appearing. Historical: - Allergies: 03/22 20:57 no known allergies; jb4 - PMHx: 20:57 Alcoholism; Bipolar II; Hypertensive disorder; Parkinsons; Seizure; jb4 - Immunization history:: Adult Immunizations unknown. - Social history:: Smoking status: Patient denies any tobacco usage or history of. Patient/guardian denies using alcohol, street drugs. ROS: 03/23 19:00 Constitutional: Negative for fever, chills, and weight loss, Eyes: Negative for injury, kdr pain, redness, and discharge, ENT: Negative for injury, pain, and discharge, Neck: Negative for injury, pain, and swelling, Cardiovascular: Negative for chest pain, palpitations, and edema, Respiratory: Negative for shortness of breath, cough, wheezing, and pleuritic chest pain, Abdomen/GI: Negative for abdominal pain, nausea, vomiting, diarrhea, and constipation, Back: Negative for injury and pain, : Negative for injury, bleeding, discharge, and swelling, MS/Extremity: Negative for injury and deformity, Skin: Negative for injury, rash, and discoloration, Psych: Negative for depression, anxiety, suicide ideation, homicidal ideation, and hallucinations, Allergy/Immunology: Negative for hives, rash, and allergies, Endocrine: Negative for neck swelling, polydipsia, polyuria, polyphagia, and marked weight changes, Hematologic/Lymphatic: Negative for swollen nodes, abnormal bleeding, and unusual bruising. Neuro: Positive for seizure activity, Negative for altered mental status, dizziness, gait disturbance, headache, hearing loss, tinnitus, tremor, visual changes, weakness. Exam: 19:00 Constitutional: This is a well developed, well nourished patient who is awake, alert, kdr and in no acute distress. Head/Face: Normocephalic, atraumatic. Eyes: Pupils equal round and reactive to light, extra-ocular motions intact. Lids and lashes normal. Conjunctiva and sclera are non-icteric and not injected. Cornea within normal limits. Periorbital areas with no swelling, redness, or edema. Neck: Trachea midline, no thyromegaly or masses palpated, and no cervical lymphadenopathy. Supple, full range of motion without nuchal rigidity, or vertebral point tenderness. No Meningismus. Chest/axilla: Normal chest wall appearance and motion. Nontender with no deformity. No lesions are appreciated. Cardiovascular: Regular rate and rhythm with a normal S1 and S2. No gallops, murmurs, or rubs. Normal PMI, no JVD. No pulse deficits. Respiratory: Lungs have equal breath sounds bilaterally, clear to auscultation and percussion. No rales, rhonchi or wheezes noted. No increased work of breathing, no retractions or nasal flaring. Abdomen/GI: Soft, non-tender, with normal bowel sounds. No distension or tympany. No guarding or rebound. No evidence of tenderness throughout. Back: No spinal tenderness. No costovertebral tenderness. Full range of motion. Skin: Warm, dry with normal turgor. Normal color with no rashes, no lesions, and no evidence of cellulitis. MS/ Extremity: Pulses equal, no cyanosis. Neurovascular intact. Full, normal range of motion. Neuro: Awake and alert, GCS 15, oriented to person, place, time, and situation. Cranial nerves II-XII grossly intact. Motor strength 5/5 in all extremities. Sensory grossly intact. Cerebellar exam normal. Normal gait. Psych: Awake, alert, with orientation to person, place and time. Behavior, mood, and affect are within normal limits. Vital Signs: 03/22 20:57 BP 108 / 66; Pulse 97; Resp 16; Temp 98.3(TE); Pulse Ox 97% on R/A; Weight 72.57 kg jb4 (R); Height 5 ft. 3 in. (160.02 cm) (R); Pain 3/10; 20:57 Body Mass Index 28.34 (72.57 kg, 160.02 cm) jb4 MDM: 23:11 Patient medically screened. kdr 03/23 19:00 Data reviewed: vital signs, nurses notes, lab test result(s), radiologic studies. kdr Counseling: I had a detailed discussion with the patient and/or guardian regarding: the historical points, exam findings, and any diagnostic results supporting the discharge/admit diagnosis, lab results, radiology results, the need for outpatient follow up. 19:01 ED course: Patient was stable in the ED and without further complaint. He did not have kdr any evidence of ongoing seizure activity. He also had no evidence of trauma on physical exam. He was discharged in good condition and happy with the care provided the plan for discharge and follow-up. 03/22 21:17 Order name: CT Head C Spine snw 03/22 22:50 Order name: CT; Complete Time: 22:52 EDMS 03/22 21:17 Order name: PO challenge: post CT, pt would like a sandwich; Complete Time: 22:41 snw Administered Medications: No medications were administered Disposition Summary: 03/22/22 23:11 Discharge Ordered Location: Home kdr Problem: an acute exacerbation kdr Symptoms: are resolved kdr Condition: Stable kdr Diagnosis - Other seizures - Breakthrough kdr Followup: kdr - With: Private Physician - When: 2 - 3 days - Reason: If symptoms return, Further diagnostic work-up, Recheck today's complaints, Continuance of care, Re-evaluation by your physician Discharge Instructions: - Discharge Summary Sheet kdr - Seizure, Adult kdr Forms: - Medication Reconciliation Form kdr - Thank You Letter kdr Signatures: Dispatcher [employer] EDND Rudy Chavez MD MD kdr Arielle Smith, ENGINEERING AND DEVELOPMENT DIRECTOR-C ENGINEERING AND DEVELOPMENT DIRECTOR-Csnw Bj Sweeney, RN RN jb4
--- NOTE | 2022-03-22 23:12 | ER ---
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 Currently A\T\Ox4, vs stable. Coronavirus screen: At this time, the client does not indicate any symptoms associated with coronavirus-19. Ebola Screen: No symptoms or risks identified at this time. Initial Sepsis Screen: Does the patient meet any 2 criteria? HR > 90 bpm. Yes Does the patient have a suspected source of infection? No. Patient's initial sepsis screen is negative. Risk Assessment: Do you want to hurt yourself or someone else? Patient reports no desire to harm self or others. Onset of symptoms was March 22, 2022. Transition of care: patient was not received from another setting of care. 20:57 Method Of Arrival: EMS: [facility] jb4 20:57 Acuity: LATASHA 3 jb4 Historical: - Allergies: 20:57 no known allergies; jb4 - PMHx: 20:57 Alcoholism; Bipolar II; Hypertensive disorder; Parkinsons; Seizure; jb4 - Immunization history:: Adult Immunizations unknown. - Social history:: Smoking status: Patient denies any tobacco usage or history of. Patient/guardian denies using alcohol, street drugs. Screenin:06 Abuse screen: Denies threats or abuse. Nutritional screening: No deficits noted. jb4 Tuberculosis screening: No symptoms or risk factors identified. Fall Risk None identified. Assessment: 21:06 General: Appears in no apparent distress. comfortable, Behavior is calm, cooperative, jb4 appropriate for age. Pain: Complains of pain in right temporal area Pain does not radiate. Pain currently is 3 out of 10 on a pain scale. Quality of pain is described as throbbing. Neuro: Level of Consciousness is awake, alert, obeys commands, Oriented to person, place, time, situation. Cardiovascular: Patient's skin is warm and dry. Respiratory: Airway is patent Respiratory effort is even, unlabored, Respiratory pattern is regular, symmetrical. GI: No signs and/or symptoms were reported involving the gastrointestinal system. : No signs and/or symptoms were reported regarding the genitourinary system. EENT: No signs and/or symptoms were reported regarding the EENT system. Derm: Skin is intact, Skin is pink, warm \T\ dry. Musculoskeletal: Circulation, motion, and sensation intact. Range of motion: intact in all extremities. 22:00 Reassessment: Patient appears in no apparent distress at this time. Patient and/or jb4 family updated on plan of care and expected duration. Pain level reassessed. Patient is alert, oriented x 3, equal unlabored respirations, skin warm/dry/pink. 23:00 Reassessment: Patient appears in no apparent distress at this time. Patient and/or jb4 family updated on plan of care and expected duration. Pain level reassessed. Patient is alert, oriented x 3, equal unlabored respirations, skin warm/dry/pink. Pt tolerating PO challenge. Vital Signs: 20:57 BP 108 / 66; Pulse 97; Resp 16; Temp 98.3(TE); Pulse Ox 97% on R/A; Weight 72.57 kg jb4 (R); Height 5 ft. 3 in. (160.02 cm) (R); Pain 3/10; 20:57 Body Mass Index 28.34 (72.57 kg, 160.02 cm) jb4 ED Course: 20:54 Patient arrived in ED. jb4 20:56 Bj Sweeney, RN is Primary Nurse. jb4 20:57 Arm band placed on right wrist. jb4 21:06 Triage completed. jb4 21:06 Patient has correct armband on for positive identification. Placed in gown. Bed in low jb4 position. Call light in reach. Side rails up X 1. 22:11 Rudy Chavez MD is Attending Physician. kdr 23:00 No provider procedures requiring assistance completed. Patient did not have IV access jb4 during this emergency room visit. Administered Medications: No medications were administered Medication: 21:06 VIS not applicable for this client. jb4 Outcome: 23:11 Discharge ordered by . kdr 23:15 Discharged to home ambulatory. jb4 23:15 Condition: stable 23:15 Discharge instructions given to patient, Instructed on discharge instructions, follow up and referral plans. Demonstrated understanding of instructions, follow-up care. 23:20 Patient left the ED. tw5 Signatures: Rudy Chavez MD MD kdr Bj Sweeney RN RN [email or web address] Maria L Keyes tw5 Corrections: (The following items were deleted from the chart) 23:28 23:10 Discharged to home ambulatory, jb4 jb4 : 23:10 Condition: stable jb4 jb4 : 23:10 Discharge instructions given to patient, Instructed on discharge instructions, 4 follow up and referral plans. Demonstrated understanding of instructions, follow-up care, [facility]
== END 2022-03-22 23:20 | disposition home or self-care (01) ==
LOC: ER 20:51
DX: G40.89 Other seizures (principal); G20 Parkinson's disease; I10 Essential (primary) hypertension; F31.81 Bipolar II disorder; F10.20 Alcohol dependence, uncomplicated
CPT/HCPCS: 70450; 72125; 99283

== ENCOUNTER 2022-05-07 00:11 | Emergency (ER) | payer SELFPAY ==
--- OUTSIDE RECORDS SUMMARY | 2022-05-07 00:19 | XMS REPORT | Continuity of Care Document ---
:1970 Author Organization [facility] t Address [address] [place] [address] Care Team Providers Name Role Phone Pcp-None Primary Care Physician Unavailable DIYA CHOWDHURY Attending Clinician Unavailable Diya Chowdhury DO Attending Clinician Fidel Cuellar Attending Clinician Unavailable DIRK YARBROUGH Attending Clinician Unavailable Leticia Rowland Attending Clinician Dirk Yarbrough MD Attending Clinician Faye Portillo LVN Attending Clinician JESSICA PRADO Attending Clinician Unavailable Pia Reddy Attending Clinician Jessica Prado MD Attending Clinician Vinnie Navarro Attending Clinician Unavailable DIYA CHOWDHURY Admitting Clinician Unavailable Leticia HAMEED Admitting Clinician Unavailable JESSICA PRADO Admitting Clinician Unavailable Jessica Prado MD Admitting Clinician Payers Payer Name Policy Type Policy Number Effective Date [facility]piration Date [facility] [id number] P[facility] 00:00:00 Problems Condition Condition Condition Status Onset [...] Chest Chest Disease Active Univers pain, pain, 709 ity of [place]spec[place] d type 00 Medical [place] Priapism Priapism Disease Active 2013-06 Unive rs 1-06 ity of 00:00: [place] 00 Medical Branch Allergies, Adverse Reactions, Alerts Allergy Allergy Status Severity Reaction(s) Onset Inactive Treating Comm ents Source Name Type Date Date Clinician No Known DA Active U [facility] 9-16 Allergie 00:00: s 00 No Known DA Active U [facility] 3-29 Allergie 00:00: s 00 No Known DA Active U 2019-06 [facility] Drug 2-16 Allergie 00:00: s 00 No Known DA Active U 2020-1 [facility] Drug 2-15 Allergie 00:00: s 00 No Known DA Active U 2020-1 [facility] Drug 2-02 Allergie 00:00: s 00 Trazodon Propensi Active Other - See U nivers e ty to comments 4-17 ity of adverse 00:00: [place] reaction 00 [facility] s Branch TRAZODON DRUG Active Other-Cmnt Univ ers E INGREDI 4-17 ity of 00:00: [place] 00 Medical Branch Social History Social Habit Start Date Stop Date Quantity Comments Source History of Smokes tobacco University of tobacco use daily [facility] Exposure to 2022-03-27 2022-04-06 Unable to assess Univers ity of SARS-CoV-2 00:00:00 09:36:00 [facility] (event) Branch Alcohol intake 2022-01-19 2022-01-19 Current drinker Unive rsity of 00:00:00 00:00:00 of alcohol [facility] (finding) Branch Tobacco use and 2021-12-28 2021-12-28 Smokeless tobacco Un iversity of exposure 00:00:00 00:00:00 non-user [facility] Tobacco Comment 2021-12-28 2021-12-28 1/2 a pack a day Uni versity of 00:00:00 00:00:00 [facility] Sex [birth year] Universit y of 00:00:00 00:00:00 [facility] Smoking Status Start Date Stop Date Source Smokes tobacco daily 2021-12-28 00:00:00 Univers ity of [facility] Medications Ordered Filled Start Stop Current Ordering Indication Dosage Frequency Signature Comments Components Source Medication Medication Date Date Medication? Clinician (SIG) Name Name ketorolac 2021-06- No 15mg 15 mg, Unive rs (TORADOL) 0-16 10-16 Slow IV ity of injection 16:00: 14:50 Push, [place] 15 mg 00 :00 ONCE, 1 Medical dose, On Branch 04/06/22 at 1100, JACIEL ondansetron 2021-06 No 4mg 4 mg, Slow Univers (ZOFRAN 0-16 10-16 IV Push, ity of (PF)) 15:45: 14:50 ONCE, 1 [place] injection 4 00 :00 dose, On Medi yudy mg Sun [place] 04/06/22 at 1045, JACIEL oxazepam 2021- No 15mg 15 mg, Univer s (SERAX) 7 07-13 Oral, Q12H ity o f capsule 15 06:28: 06:29 [place]ER[place] 2 [place] mg 17 :00 doses, Medical First dose Branch on Thu12/31/21 at 0130, Last dose on Thu12/31/21 at 1330, Routine multivitami Yes [id number] 1{tbl} Take 1 Univers n tablet 12-31 [id number] tablet by ity of 00:00: mouth in [place] 00 the Medical morning. Branch thiamine Yes [id number] 100mg Take 1 Univers 100 mg - [id number] tablet by ity of tablet 00:00: mouth in [place] 00 the Medical morning. Branch aspirin 81 Yes [id number] 81mg Take 1 Univers mg chewable 12-31 [id number] tablet by i ty of tablet 00:00: mouth in [place] 00 the Medical morning. Branch multivitami 2021-0 Yes [id number] 1{tbl} Take 1 Univers n tablet 7-12 [id number] tablet by ity of 00:00: mouth in [place] 00 the Medical morning. Branch thiamine 2021-0 Yes [id number] 100mg Take 1 Univers 100 mg 7-12 [id number] tablet by ity of tablet 00:00: mouth in [place] 00 the Medical morning. Branch aspirin 81 2021-0 Yes [id number] 81mg Take 1 Univers mg chewable 7-12 [id number] tablet by i ty of tablet 00:00: mouth in [place] 00 the Medical morning. Branch multivitami 2021-0 Yes [id number] 1{tbl} Take 1 Univers n tablet 7-12 [id number] tablet by ity of 00:00: mouth in [place] 00 the Medical morning. Branch thiamine 2021-0 Yes [id number] 100mg Take 1 Univers 100 mg 7-12 [id number] tablet by ity of tablet 00:00: mouth in [place] 00 the Medical morning. Branch aspirin 81 2021-0 Yes [id number] 81mg Take 1 Univers mg chewable 7- 877877 tablet by i ty of tablet 00:00: mouth in [place] 00 the Medical morning. Branch multivitami 0 Yes [id number] 1{tbl} Take 1 Univers n tablet 7- 759741 tablet by ity of 00:00: mouth in [place] 00 the Medical morning. Branch thiamine 2021-0 Yes [id number] 100mg Take 1 Univers 100 mg 7- 743477 tablet by ity of tablet 00:00: mouth in [place] 00 the Medical morning. Branch aspirin 81 2021-0 Yes [id number] 81mg Take 1 Univers mg chewable 7- 822974 tablet by i ty of tablet 00:00: mouth in [place] 00 the Medical morning. Branch foLIC acid 2021- No [id number] 1mg Take 1 Univers 1 mg tablet 12-31 [id number] tablet by ity of 00:00: 04:59 mouth in [place] 00 :00 the Medical morning Branch for 30 days. foLIC acid 2021-2021- No [id number] 1mg Take 1 Univers 1 mg tablet 12-31 [id number] tablet by ity of 00:00: 04:59 mouth in [place] 00 :00 the Medical morning Branch for 30 days. foLIC acid 2021- No [id number] 1mg Take 1 Univers 1 mg tablet 12-31 [id number] tablet by ity of 00:00: 04:59 mouth in [place] 00 :00 [facility] for 30 days. metFORMIN Yes [id number] 500mg Take 1 Univers 500 mg 7- 887687 tablet by ity of tablet 00:00: mouth in [address] and 1 tablet in the evening. Take with meals. metFORMIN Yes [id number] 500mg Take 1 Univers 500 mg 7-11 [id number] tablet by ity of tablet 00:00: mouth in [address] and 1 tablet in the evening. Take with meals. metFORMIN Yes [id number] 500mg Take 1 Univers 500 mg 7- 798444 tablet by ity of tablet 00:00: mouth in [address] and 1 tablet in the evening. Take with meals. metFORMIN Yes [id number] 500mg Take 1 Univers 500 mg 7- 772862 tablet by ity of tablet 00:00: mouth in [address] and 1 tablet in the evening. Take with meals. aspirin Yes 81mg 81 mg, Univers chewable 7-10 Oral, ity of tablet 81 14:00: DAILY, [place] mg 00 First dose Medical on [facility] 12/29/21 at 0900, Until Discontinu ed, Routine sulfur 2021- No [id number] 5mL 5 mL, Unive rs hexafluorid 12-29 07-10 Intravenou i ty of e microsphr 13:45: 13:45 s, ONCE, 1 [place] (LUMASON) 00 :00 dose, On Medica l injection 5 [facility] mL 12/29/21 at 0845, Routine
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 Restricted medication : STEFANIE GORMAN enoxaparin Yes 40mg 40 mg, Unive rs (LOVENOX) 7-10 Subcutaneo ity of injection 13:00: us, Q24H, [place] 40 mg 00 First dose Medical on [facility] 12/29/21 at 0800, Until Discontinu ed, Routine Sliding 2021- Yes Subcutaneo Univ ers Scale 7-10 us, TID ity of Insulin - 13:00: MEALS+HS, [place] Lispro 00 First dose Medical (HumaLOG) + on [facility] Fsbg 12/29/21 at Testing 0800, Until Discontinu ed, Routine diazePAM 2021-0 2021- No 10mg 10 mg, Univer s (VALIUM) 7 07-10 Intravenou ity of injection 05:30: 04:40 s, ONCE, 1 [place] 10 mg 00 :00 dose, On [facility] 12/29/21 at 0030, Routine diazePAM 2021-0 2021- No 10mg 10 mg, Univer s (VALIUM) 12-29 07-10 Intravenou ity of injection 04:15: 03:17 s, ONCE, 1 [place] 10 mg 00 :00 dose, On [facility] 12/28/21 Branch at 2315, Routine diazePAM 2021-0 Yes 5mg 5 mg, Univers (VALIUM) 7-10 Intravenou ity o f injection 5 03:45: s, QIDPDamienN, [place] mg 01 Starting Medical on [facility] 12/28/21 at 2245, Until Discontinu ed, Routine, Seizures, Agitation foLIC acid Yes 1mg 1 mg, Univer s (FOLATE) 7-10 Oral, ity of tablet 1 mg 03:45: DAILY, [place] 00 First dose Medical on [facility] 12/28/21 at 2245, Until Discontinu ed, Routine thiamine 2021-0 Yes 100mg 100 mg, Unive rs (VITAMIN 7-10 Oral, ity of B1) tablet 03:45: DAILY, [place] 100 mg 00 First dose Medical (after Branch last modificati on) on [facility] 12/28/21 at 2245, Until Discontinu ed, Routine glucagon 2021-0 Yes 1mg 1 mg, Univers (GLUCAGEN 7-10 Intramuscu ity of DIAGNOSTIC 03:42: [place], PRN, [place] KIT) 19 Starting Medical injection 1 on [facility] 12/28/21 at 2242, Until Discontinu ed, JACIEL, Blood Glucose < or = 70 mg/dL and patient is unable to swallow or has mental changes. dextrose 2021-0 Yes 250mL 250 mL, IV Un lorena 10% (D10W) 7-10 Infusion, ity of bolus 03:42: PRN - SEE [place] infusion 19 INSTRUCTIO Medic al 250 mL NS, Branch Administer over 60 Minutes, Other, If blood glucose is < or = 70 mg/dL and patient is unable to swallow or has mental status changes, Starting on [facility] 12/28/21 at 2242
If blood glucose [...] is < 80 mg/dL, repeat.
LORazepam 2021-0 202- No 1mg 1 mg, Univer s (ATIVAN) 7-10 07-10 Intravenou ity of injection 1 03:30: 02:32 s, ONCE, 1 [place] mg 00 :00 dose, On Medical [facility] 12/28/21 Branch at 2230, Routine
Is the medication being used for status epilepticu s? No oxazepam 2021-0 Yes 15mg 15 mg, Univers (SERAX) 7-10 Oral, ity of capsule 15 00:28: Q4HPRN, [place] mg 20 Starting Medical on [facility] Branch 12/28/21 at 1928, Until Discontinu ed, Routine, Only while awake for DBP equal to or greater than 100, HR equal to or greater than 100. ondansetron 2021-0 Yes 4mg 4 mg, Slow Univers (ZOFRAN 7-10 IV Push, ity of (PF)) 00:23: Q6HPRN, [place] injection 4 47 Starting Medi yudy mg on [facility] Branch 12/28/21 at 1923, Until Discontinu ed, Routine, Nausea and Vomiting (N/V) acetaminoph 2021-0 Yes 650mg 650 mg, Un lorena en 7-10 Oral, ity of (TYLENOL) 00:23: Q6HPRN, [place] tablet 650 37 Starting Medic al mg on [facility] Branch 12/28/21 at 1923, Until Discontinu ed, [...] ONCE, 1 dose, On 12/28/21 at 1745, JACIEL LORazepam 2021- No 1mg 1 mg, Slow [...] hours as Branch needed for Pain. acetaminoph 0 Yes 500mg Take 1 Tab Univers en 4-17 by mouth ity of (TYLENOL) 00:00: every 6 [place] 500 mg 00 (six) Medical tablet hours as Branch needed for Pain. acetaminoph 0 Yes 500mg Take 1 Tab Univers en [...] Time Observation Value Comments Source Systolic blood 2022-04-06 16:00:00 125 mm[Hg] Univer sity of pressure [place] [facility] Diastolic blood 2022-04-06 16:00:00 75 mm[Hg] Unive rsity of pressure [place] [facility] Heart rate 2022-04-06 16:00:00 87 /min Universi ty of [place] [facility] Respiratory rate 2022-04-06 16:00:00 22 /min Univ ersity of [place] [facility] Oxygen saturation in 2022-04-06 16:00:00 98 /min University of Arterial blood by [place] [employer] yudy Pulse oximetry Branch Body temperature 2022-04-06 14:41:00 37 Theresa Univ ersity of [place] [facility] Body height 2022-04-06 14:41:00 160 cm Universi ty of [place] [facility] Body weight 2022-04-06 14:41:00 63.504 kg Universi ty of [place] [facility] BMI 2022-04-06 14:41:00 24.80 kg/m2 Universi ty of [place] [facility] Systolic blood 2022-01-20 02:27:00 121 mm[Hg] Univer sity of pressure [place] [facility] Diastolic blood 2022-01-20 02:27:00 75 mm[Hg] Unive rsity of pressure [place] [facility] Heart rate 2022-01-20 02:27:00 79 /min Universi ty of [place] [facility] Respiratory rate 2022-01-20 02:27:00 12 /min Univ ersity of [place] [facility] Oxygen saturation in 2022-01-20 02:27:00 98 /min University of Arterial blood by [facility] Pulse oximetry Branch Body temperature 2022-01-19 22:19:00 36.44 Theresa Univ ersity of [place] [facility] Body weight 2022-01-19 22:19:00 60.328 kg Universi ty of [place] [facility] BMI 2022-01-19 22:19:00 23.56 kg/m2 Universi ty of [place] [facility] Systolic blood 2021-12-30 20:52:00 134 mm[Hg] Univer sity of pressure [place] [facility] Diastolic blood 2021-12-30 20:52:00 76 mm[Hg] Unive rsity of pressure [place] [facility] Heart rate 2021-12-30 20:52:00 67 /min Universi ty of [place] [facility] Body temperature 2021-12-30 20:26:00 36.67 Theresa Univ ersity of [place] [facility] Oxygen saturation in 2021-12-30 20:26:00 99 /min University of Arterial blood by [facility] Pulse oximetry [place] Respiratory rate 2021-12-30 16:21:00 18 /min [facility] Body weight 2021-12-30 08:27:00 60.464 kg [facility] BMI 2021-12-30 08:27:00 23.61 kg/m2 [facility] Body height 2021-12-29 01:29:00 160 cm [facility] Procedures Procedure Date / Time Performing Clinician Source Performed XR CHEST 1 VW 2022-04-06 14:51:50 Diya Chowdhury [facility] LIPASE 2022-04-06 14:42:[address] [facility] TROPONIN I 2022-04-06 14:42:00 Diya Chowdhury [facility] COMP. METABOLIC PANEL 2022-04-06 14:42:00 Dyia Chowdhury [facility] ([id number] CBC WITH DIFF 2022-04-06 14:42:00 Diya Chowdhury [facility] PROTHROMBIN TIME / INR 2022-04-06 14:42:[address] [facility] [place] [place] [facility] PARTIAL 2022-04-06 14:42:00 [facility] WHO[facility]LO[facility] 2022-01-20 00:22:00 Leticia Hameed [facility] URINE DRUG (IMMUNOASSAY) 2022-01-19 23:10:00 Leticia Hameed [facility] SCREEN URINALYSIS 2022-01-19 23:10:00 Leticia Hameed [facility] TROPONIN I 2022-01-19 23:00:00 Leticia Hameed [facility] COMP. METABOLIC PANEL 2022-01-19 23:00:00 Leticia Hameed [facility] ([id number] LITHIUM 2022-01-19 23:00:00 Leticia Hameed [facility] ETHANOL 2022-01-19 23:00:00 Leticia Hameed Riddhi [facility] CBC WITH DIFF 2022-01-19 23:00:00 Leticia Hameed [facility] COVID-19 (ID NOW RAPID 2022-01-19 23:00:00 Leticia Hameed [facility] TESTING) Medical Branch CT HEAD WO CONTRAST 2022-01-19 22:49:00 Leticia Hameed [facility] ty [facility] XR CHEST 1 VW 2022-01-19 22:41:00 Leticia Hameed [facility] POCT GLUCOSE (AUTOMATED) 2022-01-19 22:25:00 Leticia Hameed [facility] POCT GLUCOSE (AUTOMATED) 2021-12-30 21:55:00 Jessica Prado [facility] POCT GLUCOSE (AUTOMATED) 2021-12-30 16:21:00 Jessica Prado [facility] POCT GLUCOSE (AUTOMATED) 2021-12-30 12:30:00 Jessica Prado [facility] [place] [facility] HEPATIC FUNCTION PANEL 2021-12-30 09:28:00 Maira Gaitan [facility] ([id number]) (ALB,T.PRO,[facility] T,BU/BC,ALT,AST,ALK PHOS) POCT GLUCOSE (AUTOMATED) 2021-12-30 02:11:00 Jessica Prado [facility] [place] [facility] POCT GLUCOSE (AUTOMATED) 2021-12-29 21:41:00 Jessica Prado [facility] [place] [facility] POCT GLUCOSE (AUTOMATED) 2021-12-29 16:37:00 Jessica Prado [facility] [place] [facility] TRANSTHORACIC ECHO (TTE) 2021-12-29 13:05:00 Jessica Prado [facility] W/ CONTRAST Medical [facility] POCT GLUCOSE (AUTOMATED) 2021-12-29 12:41:00 Jessica Prado [facility] [place] [facility] TROPONIN I 2021-12-29 09:42:00 Jessica Prado [facility] TROPONIN I 2021-12-29 04:55:00 Ovkathryn, [facility] CT HEAD WO CONTRAST 2021-12-28 21:18:22 Pia Renteria [facility] AMMONIA, PLASMA 2021-12-28 21:00:00 Pia Renteria [facility] COVID-19 (ID NOW RAPID 2021-12-28 20:42:00 [facility] Branch LAB ONLY COVID 2021-12-28 20:42:00 Pia Renteria [facility] INTERPRETATION [facility] URINE DRUG (IMMUNOASSAY) 2021-12-28 20:42:00 Pia Renteria [facility] SCREEN W/O REFLEX URINALYSIS 2021-12-28 20:40:00 [facility] PRO-BNP 2021-12-28 20:40:00 Pia Renteria [facility] TROPONIN I 2021-12-28 20:40:00 [facility] THYROID STIMULATING 2021-12-28 20:40:00 Jessica Prado [facility] HORMONE [facility] COMP. METABOLIC PANEL 2021-12-28 20:40:00 Pia Renteria [facility] ([id number]) [facility] LIPID PANEL ([id number])(TOTAL 2021-12-28 20:40:00 Demetrius Langford [facility] TRIGLYCERIDES, HDL) ETHANOL 2021-12-28 20:40:00 Demetrius Langford [facility] CBC WITH DIFF 2021-12-28 20:40:00 Dexter [facility] GLYCOSYLATED HEMOGLOBIN 2021-12-28 20:40:00 Eve [facility] (A1C) [facility] PROTHROMBIN TIME / INR 2021-12-28 20:40:00 Pia Renteria [facility] XR CHEST 1 VW 2021-12-28 20:16:00 [facility] ECG ROUTINE & RHYTHM 2021-12-28 20:04:59 Pia Renteria [facility] [place] Encounters Start End Encounter Admission Attending Care Care Encounter Source Date/Time Date/Time Type Type Clinicians Facility Department ID 2021-09-17 Inpatient [facility] [id number] [facility] 16:45:00 35 2020-06-06 Inpatient [facility] [id number] [facility] 16:07:00 05 2020-06-06 Inpatient [facility] [id number] [facility] 06:20:00 77 2020-06-05 Inpatient [facility] [id number] [facility] 19:35:00 25 2020-05-23 Inpatient [facility] [id number] [facility] 19:53:00 39 2020-05-23 Inpatient [facility] [id number] [facility] 19:53:00 39 2022-04-06 2022-04-06 Emergency X LUCIANA [facility] ERT [id number] Univers 09:38:00 11:42:00 DIYA rahman [facility] 2022-04-06 2022-04-06 Emergency Luciana [facility] [id number] Univers 09:38:00 11:42:00 Diya OTTO [id number] i Mila 4.2.7.2.686 [facility] [id number] [address] 2022-03-07 2022-03-07 Emergency [facility] [id number] [facility] 12:38:00 12:38:00 74 2022-03-07 2022-03-07 Emergency Emergency Fidel Cuellar [facility] [id number] [facility] 12:38:00 12:38:00 74 2022-01-19 2022-01-19 Emergency X NNEKA NEYULIA ERT [id number] Univers 17:18:00 22:00:00 DIRK rahman [facility] 2022-01-19 2022-01-19 Emergency Leticia Hameed [facility] 1.2.840. [id number] Univers 17:18:00 22:00:00 Dirk Yarbrough [id number] itRober 4.2.7.2.686 [facility] [id number] [facility] 084 Branch 2021-12-31 2021-12-31 Transition EDMUNDO Portillo [id number] Univers 00:00:00 00:00:00 of Care Faye RANKIN [id number] ity of RAMON 4.2.7.2.686 [facility] [id number] [facility] 403 Branch 2021-12-28 2021-12-30 Inpatient X EVE [facility] [id number] Univers 14:53:00 17:42:00 JESSICA ity of [facility] 2021-12-28 2021-12-30 Hospital Pia Renteria [facility] 1.2.840. 114 [id number] Univers 14:53:00 17:42:00 Encounter Jessica Prado [id number] ity of VINI 4.2.7.2.686 [facility] [id number] [facility] 081 Branch 2021-09-17 2021-09-17 Emergency [facility] [id number] [facility] 16:47:00 16:47:00 35 2020-06-06 2020-06-06 Emergency [facility] [id number] [facility] 16:07:00 16:07:00 05 Results Test Description Test Time Test Comments Results Result Comments Source TROPONIN I 2022-04-06 15:15:32 Test Item Value Reference Range Interpretation Comme nts TROPONIN I (test code = 0.007 ng/mL See_Comment [Au tomated message] The [id number]) system which ge nerated this result tra nsmitted reference range : <=0.034. The reference r elba was not used to int erpret this result as normal/abnormal . JUAN ALBERTO (test code = JUAN ALBERTO) Reference (Normal) Range (defined by the 99th percentile reference [...] biotin. Lab Interpretation Normal (test code = 71505-1) [facility] 15:08:29 Test Item Value Reference Range Interpretation Comments APTT Patient (test See_Comment [Automat ed code = 3173-2) message] The system which generated this result transmitted reference range : 23 - 38 Seconds . The reference range was not used to interpr et this result as normal/abnormal . JUAN ALBERTO (test code = JUAN ALBERTO) The [facility] patient population mean normal value for aPTT is 30 seconds. Lab Interpretation Normal (test code = 74481-3) [facility] / [id number] 15:06:28 Test Item Value Reference Range Interpretation Comments [...] tions. Lab Interpretation (test Normal code = 36649-6) [facility] MET[facility]OLIC PANEL (73705)2022-04-06 15:03:31 Test Item Value Reference Range Interpretation Comments NA (test code = 136 mmol/L 135-145 3213057954) K (test code = 5.0 mmol/L 3.5-5 9908124552) CL (test code = 104 mmol/L 98-108 4307325028) CO2 TOTAL (test code = 21 mmol/L 23-31 L 8377153378) AGAP (test code = 2-16 0609551265) BUN (test code = 11 mg/dL 7-23 3581908080) GLUCOSE (test code = 162 mg/dL 70-110 H 1474111084) CREATININE (test code = 0.52 mg/dL 0.6-1.25 L 3196284980) TOTAL BILI (test code = 1.0 mg/dL 0.1-1.6 4407332055) CALCIUM (test code = 9.3 mg/dL 8.6-10.6 3140712277) T PROTEIN (test code = 7.4 g/dL 6.3-8.2 4047028340) ALBUMIN (test code = 4.4 g/dL 3.5-5 1534269937) ALK PHOS (test code = 134 U/L 34-122 H 7714783293) ALTv (test code = 17 U/L 5-50 1742-6) AST(SGOT) (test code = 38 U/L 13-40 1322065719) eGFR (test code = mL/min/1.73m2 5466426266) JUAN ALBERTO (test code = JUAN ALBERTO) [...] tests). Lab Interpretation Abnormal (test code = 91302-5) [facility], [id number] 15:03:31 Test Item Value Reference Range Interpretation Comments LIPASE (test code = 6172967977) 29 U/L 0-220 Lab Interpretation (test code = Normal 32340-2) [facility] WITH [id number] 14:51:49 Test Item Value Reference Range Interpretation Comments [...] as normal/abnormal . HGB (test code = 14.0 g/dL 12.2-16.4 718-7) HCT (test code = 41.2 % 38.4-49.3 4544-3) MCV (test code = 93.8 fL 81.7-95.6 787-2) MCH (test code = 31.9 pg 26.1-32.7 785-6) MCHC (test code = 34.0 g/dL 31.2-35 786-4) RDW-SD (test code = 45.9 fL 38.5-51.6 10092-6) RDW-CV (test code = 13.3 % 12.1-15.4 788-0) PLT (test code = See_Comment [Automated 777-3) message] The sy stem which generated this result transmitted reference range : 150 - 328 10*3/ ?L. The reference r elba was not used to interpret this result as normal/abnormal . MPV (test code = 8.4 fL 9.8-13 L 35703-4) NRBC/100 WBC (test See_Comment [Automat ed code = 9317198948) message] The system which generated this result transmitted reference range : 0.0 - 10.0 /100 WBCs. The refer ence range was not u sed to interpret th is result as normal/abnormal . NRBC x10^3 (test code See_Comment [Auto mated = 9161219486) message] The s ystem which generated this result transmitted reference range : 10*3/?L. The reference range was not used to interpret this result as normal/abnormal . GRAN MAT (NEUT) % 63.0 % (test code = 770-8) IMM GRAN % (test code 0.50 % = 1645531103) LYMPH % (test code = 25.2 % 736-9) MONO % (test code = 9.8 % 5905-5) EOS % (test code = 0.3 % 713-8) BASO % (test code = 1.2 % 706-2) GRAN MAT x10^3(ANC) 3.73 10*3/uL 1.99-6.95 (test code = 3316531953) IMM GRAN x10^3 (test 0.03 10*3/uL 0-0.06 code = 4399405283) LYMPH x10^3 (test code 1.49 10*3/uL 1.09-3.23 = 731-0) MONO x10^3 (test code 0.58 10*3/uL 0.36-1.02 = 742-7) EOS x10^3 (test code = 0.06-0.53 L 711-2) BASO x10^3 (test code 0.07 10*3/uL 0.01-0.09 = 704-7) Lab Interpretation Abnormal (test code = 72032-8) [facility] Rflx Cult/[id number] 13:53:00 Test Item Value Reference Range Interpretation Comments Color,Urine (test code = UCOL) Yellow Yellow Clarity,Urine (test code = Cloudy Clear A UCLAR) Ph, Urine (test code = UPH) 7.5 5.0-9.0 N Specific [place],Urine (test 1.025 1.005-1.030 N code = USG) Blood,Urine (test code = UBLD) Negative mg/dL Negative Protein,Urine (test code = Negative mg/dL Negative UPRO) Glucose,Urine (UA) (test code Negative mg/dL Negative = UGLU) Ketones,Urine (test code = Negative mg/dL Negative UKET) Nitrate,Urine (test code = Negative Negative UNIT) Bilirubin,Urine (test code = Negative mg/dL Negative UBIL) Urobilinogen,Urine (test code 2.0 E.U./dL Normal A = UURO) Leukocyte Esterase,Urine (test Negative mg/dL Negative code = ULEU) UF REFLEXDrug Screen,[id number] 13:53:00 Test Item Value Reference Range Interpretation [...] code = UPROP) Complete Blood Count Auto [id number] 12:58:00 Test Item Value Reference Range Interpretation [...] = NRBCP) 0 % Coronavirus PCR, COVID19 Atbnv4542-71-71 12:58:00 Test Item Value Reference Range Interpretation Comments Coronavirus PCR, COVID19 Rapid (test code = SARSCOV2) Coronavirus PCR, COVID19 Reference Range: Rapid (test code = Negative KSLZSEI16.1) SARS-CoV-2 PCR Result: Negative by RT-PCR (test code = SARS-CoV-2 PCR Result:) COVID-19 Status: AsymptomaticComprehensive Metabolic [id number] 12:58:00 Test Item Value Reference Range Interpretation [...] 144 U/L 46-116 H = ALP) Ethanol [id number] 12:58:00 Test Item Value Reference Range Interpretation Comments Ethanol (test code < 3 mg/dL The pharm acological = ETOH) response to blo od alcohol levels mayvary from individual to i ndividual. The fatal surinder ntrationhas been reported t o be >400mg/dL. [id number] 01:47:56 Test Item Value Reference Range Interpretation Comments [place] (test code = 0.7 mmol/L 0.6-1.2 0617802300) JUAN ALBERTO (test code = JUAN ALBERTO) Toxic Range: ? Greater than 1.2 mmol/L Lab Interpretation (test Normal code = 22197-4) [facility] HospitalAUGUSTUSMIRIAM [id number] 00:26:53 Test Item Value Reference Interpretation Comments Range TROPONIN I (test 0.002 ng/mL See_Comment [Automated code = 3445336155) message] The system which generated this result [...] biotin. 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 [facility] METABOLIC PANEL (08768) 2022-01-20 00:16:16 Test Item Value Reference Range Interpretation Comments NA (test code = 137 mmol/L 135-145 9685699631) K (test code = 4.5 mmol/L 3.5-5 0773880924) CL (test code = 103 mmol/L 98-108 6024191316) CO2 TOTAL (test code = 26 mmol/L 23-31 1262661446) AGAP (test code = 2-16 8180465082) BUN (test code = 10 mg/dL 7-23 6713965645) GLUCOSE (test code = 121 mg/dL 70-110 H 8066119788) CREATININE (test code = 0.65 mg/dL 0.6-1.25 4887851896) TOTAL BILI (test code = 0.8 mg/dL 0.1-1.0 5243309942) CALCIUM (test code = 11.4 mg/dL 8.6-10.6 H 2926746083) T PROTEIN (test code = 7.2 g/dL 6.3-8.2 2944345003) ALBUMIN (test code = 4.6 g/dL 3.5-5 0377472475) ALK PHOS (test code = 112 U/L 34-122 1672194632) ALTv (test code = 19 U/L 5-50 1742-6) AST(SGOT) (test code = 26 U/L 13-40 0235588579) eGFR (test code = mL/min/1.73m2 5020940884) JUAN ALBERTO (test code = JUAN ALBERTO) [...] tests). Lab Interpretation Abnormal (test code = 63312-3) [facility] WITH [id number] 23:43:54 Test Item Value Reference Range Interpretation [...] RDW-SD (test code = 44.0 fL 38.5-51.6 83321-9) RDW-CV (test code = 12.6 % 12.1-15.4 788-0) PLT (test code = See_Comment [Automated 777-3) message] The sy stem which generated this result transmitted reference range : 150 - 328 10*3/ ?L. The reference r elba was not used to interpret this result as normal/abnormal . MPV (test code = 9.1 fL 9.8-13 L 38680-3) NRBC/100 WBC (test See_Comment [Automat ed code = 1660131707) message] The system which generated this result transmitted reference range : 0.0 - 10.0 /100 WBCs. The refer ence range was not u sed to interpret th is result as normal/abnormal . NRBC x10^3 (test code See_Comment [Auto mated = 9382533808) message] The s ystem which generated this result transmitted reference range : 10*3/?L. The reference range was not used to interpret this result as normal/abnormal . GRAN MAT (NEUT) % 69.8 % (test code = 770-8) IMM GRAN % (test code 0.40 % = 1841409604) LYMPH % (test code = 18.0 % 736-9) MONO % (test code = 10.9 % 5905-5) EOS % (test code = 0.1 % 713-8) BASO % (test code = 0.8 % 706-2) GRAN MAT x10^3(ANC) 5.58 10*3/uL 1.99-6.95 (test code = 5702865398) IMM GRAN x10^3 (test 0.03 10*3/uL 0-0.06 code = 0517393477) LYMPH x10^3 (test code 1.44 10*3/uL 1.09-3.23 = 731-0) MONO x10^3 (test code 0.87 10*3/uL 0.36-1.02 = 742-7) EOS x10^3 (test code = 0.06-0.53 L 711-2) BASO x10^3 (test code 0.06 10*3/uL 0.01-0.09 = 704-7) Lab Interpretation Abnormal (test code = 77999-9) [facility] GLUCOSE (AUTOMATED)2022-01-19 22:27:41 Test Item Value Reference Range Interpretation Comments POCT GLU (test code = 7755815533) 123 mg/dL 70-110 H Lab Interpretation (test code = Abnormal 94876-0) [facility] GLUCOSE (AUTOMATED)2021-12-30 22:08:16 Test Item Value Reference Range Interpretation Comments POCT GLU (test code = 2758170207) 167 mg/dL 70-110 H Lab Interpretation (test code = Abnormal 02508-9) [facility] GLUCOSE (AUTOMATED)2021-12-30 16:50:40 Test Item Value Reference Range Interpretation Comments POCT GLU (test code = 6505672322) 154 mg/dL 70-110 H Lab Interpretation (test code = Abnormal 29698-4) [facility] GLUCOSE (AUTOMATED)2021-12-30 12:38:43 Test Item Value Reference Range Interpretation Comments POCT GLU (test code = 4133711794) 164 mg/dL 70-110 H Lab Interpretation (test code = Abnormal 66957-4) [facility] GLUCOSE (AUTOMATED)2021-12-30 02:14:58 Test Item Value Reference Range Interpretation Comments POCT GLU (test code = 3709932539) 220 mg/dL 70-110 H Lab Interpretation (test code = Abnormal 46636-1) [facility] GLUCOSE (AUTOMATED)2021-12-29 21:50:02 Test Item Value Reference Range Interpretation Comments POCT GLU (test code = 6836137659) 191 mg/dL 70-110 H Lab Interpretation (test code = Abnormal 90944-5) [facility] GLUCOSE (AUTOMATED)2021-12-29 20:15:01 Test Item Value Reference Range Interpretation Comments POCT GLU (test code = 3007840332) 163 mg/dL 70-110 H Lab Interpretation (test code = Abnormal 97789-5) [facility] HospitalTransthoracic echo (TTE)2021-12-29 19:12:22 Test Item Value Reference Range Interpretation Comments Height (test code = in 5505670139) Weight (test code = lbs 2243840245) Systolic BP (test code = mmHg 7612143124) Diastolic BP (test code mmHg = 1530625627) Heart Rate (test code = bpm 4358939641) BSA (test code = 1.62 m2 5904318736) Ao root annulus (test 2.45 cm code = 7424179981) Ao root diam (test code 2.45 cm = 4544120527) Aortic root (test code = 2.45 cm 6725057856) ACS (test code = 1.66 cm 1599666149) LA size (test code = 3.2 cm 2655164162) LVOT diameter (test code 1.95 cm = 6590953273) LVIDD (test code = 3.60 cm 6552250144) IVS (test code = 0.94 cm 0877271627) Interventricular Septum 0.94 cm Diastolic Thickness by 2D (test code = 6370024) LVPWD (test code = 0.80 cm 6592505493) PW (test code = 0.80 cm 0.6-1.6 2768159310) EF(Teich) (test code = 52.80 % 3457386236) LVIDS (test code = 2.60 cm 3937236081) FS (test code = 27 % 5951253024) EF - 2D (test code = 52.80 % 17579663) LAV(MOD-sp4) (test code 16.80 mL = 0901942681) MV Peak E Jovany (test code 46.1 cm/s = 3629788386) E wave decelartion time 0.31 s (test code = 7134731348) MV Peak A Jovany (test code 58.1 cm/s = 9851313191) E/A ratio (test code = ratio 1120621709) MV E/e' septal (test 5.7 cm/s code = 2367649510) Tapse (test code = 1.60 cm 3799952915) LVOT stroke volume (test 52.10 cm3 code = 3320332404) LVOT peak jovany (test code 110.6 cm/s = 8184092912) LVOT mn grad (test code mmHg = 8088762126) AV LVOT peak gradient mmHg (test code = 8032447512) LVOT peak VTI (test code 17.4 cm = 4724233992) LV V1 mean (test code = 66.10 cm/s 8347270666) Aortic valve mean 73.0 cm/s velocity (test code = 9909578010) Ao peak jovany (test code = 124.6 cm/s 6986249948) Ao VTI (test code = 18.6 cm 8384161948) AV area by cont VTI 2.8 cm2 (test code = 6172701760) AV area peak jovany (test 2.7 cm2 code = 0602556415) Ao max PG (test code = 6.20 mm[Hg] 2875078875) AV peak gradient (test mmHg code = 0712328678) AV valve area (test code 2.80 cm2 = 1800386368) AV mean gradient (test mmHg code = 4586951410) Radiology Study observation (narrative) (test code = 81906-5) JUAN ALBERTO (test code = JUAN ALBERTO) [...] mL of Lumason ultrasound enhancing agent used. [facility])2021-12-29 12:50:31 Test Item Value Reference Range Interpretation Comments POCT GLU (test code = 9470067860) 141 mg/dL 70-110 H Lab Interpretation (test code = Abnormal 62795-8) [facility] HospitalTroponin [id number] 10:38:31 Test Item Value Reference Interpretation Comments Range TROPONIN I (test 0.003 ng/mL See_Comment [Automated code = 1228674228) message] The system which generated this result [...] biotin. Lab Interpretation Normal (test code = 72545-4) [facility] HospitalLIPID PANEL (24020)(TOTAL CHOLESTEROL, TRIGLYCERIDES, HDL)2021-12-29 05:56:47 Test Item Value Reference Range Interpretation Comments CHOL (test code = 168 mg/dL 120-200 9091276940) HDL (test code = 102 mg/dL See_Comment [Automated message] 6349350321) The system [employer] generated this result transmit naomie reference range : >=40. The refer ence range was not u sed to interpret th is result as normal/abnormal . HDLC RATIO (test code = See_Comment [Au tomated message] 6836533368) The system [employer] generated this result transmit naomie reference range : <=5.0. The refe rence range was not u sed to interpret th is result as normal/abnormal . TRIG (test code = 55 mg/dL 30-170 2091989365) LDL CHOL (test code = 55 mg/dL See_Comment [Auto mated message] 52528-2) The system [employer] generated this result transmit naom[place] reference range : <=160. The refe rence range was not u sed to interpret th is result as normal/abnormal . VLDL (test code = 11 mg/dL 5-60 6220460217) Lab Interpretation (test Normal code = 16482-1) [facility] HospitalThyroid Stimulating Hormone (TSH)2021-12-29 05:40:29 Test Item Value Reference Range Interpretation Comments TSH (test code = See_Comment Biotin has been 4208939319) reported to cau se a negative bias, interpret resul ts relative to pat ierenetta's use of biotin. [Automated mess age] The system [employer] generated this result transmitted ref erence range: 0.45 - 4 .70 mIU/L. The refe rence range was not u sed to interpret this result as normal/abnor mal. Lab Interpretation (test Normal code = 41722-8) [facility] HospitalTroponin [id number] 05:34:29 Test Item Value Reference Interpretation Comments Range TROPONIN I (test 0.006 ng/mL See_Comment [Automated code = 0249639725) message] The system which generated this result [...] biotin. Lab Interpretation Normal (test code = 44619-3) [facility] HospitalETHANOL2022-07-10 04:43:01 ALCOHOL<10mg/dL12/28/2021 11:43 PM [facility] Greater than or equal to 80 mg/dL. NOTE: Whole blood values are approximately 10% to 15% lower than serum and plasma.[facility] HospitalGlycosylated Hemoglobin (A1C)2021-12-29 01:51:44 Test Item Value Reference Range Interpretation Comments HGB A1C (test code = 6.5 % 4-5.7 H 4548-4) JUAN ALBERTO (test code = JUAN ALBERTO) Reference RangesNormal: <5.7%Prediabetes: 5.7 - 6.4%Diabetes: > 6.5% Lab Interpretation (test Abnormal code = 70396-5) [facility] HospitalTROPONIN [id number] 21:26:50 Test Item Value Reference Interpretation Comments Range TROPONIN I (test 0.002 ng/mL See_Comment [Automated code = 1561039937) message] The system which generated this result [...] biotin. Lab Interpretation Normal (test code = 94049-4) [facility] HospitalN-TERMINAL [id number] 21:23:29 Test Item Value Reference Range Interpretation Comments NT-proBNP (test code 41 pg/mL See_Comment [Autom ated = 2975757924) message] The system which generated this result transmitted reference range : <=125. The reference range was not used to interpret this result as normal/abnormal . JUAN ALBERTO (test code = JUAN ALBERTO) Biotin has been reported to cause a negative bias, interpret results relative to patient's use of biotin. Lab Interpretation Normal (test code = 36882-2) [facility] HospitalAMMONIA, [id number] 21:20:38 Test Item Value Reference Range Interpretation Comments AMMONIA (test code = 9-33 L Slight hemolysis 6603911664) Lab Interpretation (test Abnormal code = 63493-7) [facility] HospitalCOMP. METABOLIC PANEL (77027)2021-12-28 21:08:48 Test Item Value Reference Range Interpretation Comments NA (test code = 137 mmol/L 135-145 6846353250) K (test code = 4.5 mmol/L 3.5-5 7489900597) CL (test code = 97 mmol/L 98-108 L 9235779276) CO2 TOTAL (test code = 29 mmol/L 23-31 9676640794) AGAP (test code = 2-16 2270696776) BUN (test code = 10 mg/dL 7-23 3667499267) GLUCOSE (test code = 188 mg/dL 70-110 H 0218484058) CREATININE (test code = 0.58 mg/dL 0.6-1.25 L 4265640238) TOTAL BILI (test code = 0.8 mg/dL 0.1-1.3 7001287147) CALCIUM (test code = 10.5 mg/dL 8.6-10.6 8590444047) T PROTEIN (test code = 7.6 g/dL 6.3-8.2 2080014022) ALBUMIN (test code = 4.5 g/dL 3.5-5 8730300011) ALK PHOS (test code = 107 U/L 34-122 5493117683) ALTv (test code = 66 U/L 5-50 H 1742-6) AST(SGOT) (test code = 96 U/L 13-40 H 2853108707) eGFR (test code = mL/min/1.73m2 9044751850) JUAN ALBERTO (test code = JUAN ALBERTO) [...] tests). Lab Interpretation Abnormal (test code = 18407-9) [facility] HospitalPROTHROMBIN TIME / [id number] 21:01:25 Test Item Value Reference Range Interpretation Comments PROTIME PATIENT (test See_Comment [Auto mated message] code = 5964-2) The system [employer] generated this result transmitted ref erence range: 12.0 - 1 4.7 Seconds. The re ference range was not u sed to interpret this result as normal/abnor mal. INR (test code = 6301-6) Nor mal INR <1.1; Warfarin Therap eutic range 2.0 to 3. 0 or 2.5 to 3.5, dep ending upon the indica tions. Lab Interpretation (test Normal code = 36463-5) [facility] WITH [id number] 20:54:03 Test Item Value Reference Range Interpretation [...] RDW-SD (test code = 47.8 fL 38.5-51.6 12100-6) RDW-CV (test code = 13.3 % 12.1-15.4 788-0) PLT (test code = See_Comment [Automated 777-3) message] The sy stem which generated this result transmitted reference range : 150 - 328 10*3/ ?L. The reference r elba was not used to interpret this result as normal/abnormal . MPV (test code = 8.6 fL 9.8-13 L 31217-9) NRBC/100 WBC (test See_Comment [Automat ed code = 1500101087) message] The system which generated this result transmitted reference range : 0.0 - 10.0 /100 WBCs. The refer ence range was not u sed to interpret th is result as normal/abnormal . NRBC x10^3 (test code See_Comment [Auto mated = 4877272876) message] The s ystem which generated this result transmitted reference range : 10*3/?L. The reference range was not used to interpret this result as normal/abnormal . GRAN MAT (NEUT) % 64.1 % (test code = 770-8) IMM GRAN % (test code 0.40 % = 4897419562) LYMPH % (test code = 16.6 % 736-9) MONO % (test code = 17.2 % 5905-5) EOS % (test code = 0.2 % 713-8) BASO % (test code = 1.5 % 706-2) GRAN MAT x10^3(ANC) 3.47 10*3/uL 1.99-6.95 (test code = 7156851086) IMM GRAN x10^3 (test 0-0.06 code = 1570405863) LYMPH x10^3 (test code 0.90 10*3/uL 1.09-3.23 L = 731-0) MONO x10^3 (test code 0.93 10*3/uL 0.36-1.02 = 742-7) EOS x10^3 (test code = 0.06-0.53 L 711-2) BASO x10^3 (test code 0.08 10*3/uL 0.01-0.09 = 704-7) Lab Interpretation Abnormal (test code = 00500-1) [facility] HospitalEthanol [id number] 21:08:00 Test Item Value Reference Range Interpretation Comments Ethanol (test code < 3 mg/dL The pharm acological = ETOH) response to blo od alcohol levels mayvary from individual to i ndividual. The fatal surinder ntrationhas been reported t o be >400mg/dL. Complete Blood Count Auto [id number] 17:33:00 Test Item Value Reference Range Interpretation [...] = NRBCP) 0 % UA, Urinalysis Rflx Cult/[id number] 17:33:00 Test Item Value Reference Range Interpretation Comments Color,Urine (test code = UCOL) Dark Yellow Yellow A Clarity,Urine (test code = Clear Clear UCLAR) Ph, Urine (test code = UPH) 6.5 5.0-9.0 N Specific [place],Urine (test 1.015 1.005-1.030 N code = USG) [...] mg/dL Negative A code = ULEU) Urine [id number] 17:33:00 Test Item Value Reference Range Interpretation Comments RBC,Urine (test code = URBCUF) None Seen /HPF 0-2 WBC,Urine (test code = UWBCUF) 0-5 /HPF 0-5 Epithelial Cell,Urine (test 0-5 /HPF 0-5 code = UECUF) Casts,Urine (test code = None Seen /LPF None Seen UCASTUF) Bacteria,Urine (test code = None Seen /hpf None Seen UBACTUF) Drug Screen,[id number] 17:33:00 Test Item Value Reference Range Interpretation [...] Urine (test code = UPROP) Comprehensive Metabolic [id number] 17:33:00 Test Item Value Reference Range Interpretation [...] 46-116 N = ALP) Sars-CoV-2/FLU A/B RSV [id number] 17:31:00 Test Item Value Reference Range Interpretation [...] (test code = SARS-CoV-2 PCR Result:) Drug Screen,[id number] 17:20:00 Test Item Value Reference Range Interpretation [...] code = UPROP) Complete Blood Count Auto [id number] 17:14:00 Test Item Value Reference Range Interpretation [...] code = NRBCP) 0 % Comprehensive Metabolic [id number] 17:14:00 Test Item Value Reference Range Interpretation [...] 207 U/L 46-116 H = ALP) Ethanol [id number] 17:14:00 Test Item Value Reference Range Interpretation Comments Ethanol (test code = ETOH) 192 mg/dL Complete Blood Count Auto [id number] 20:20:00 Test Item Value Reference Range Interpretation [...] code = NRBCP) 0 % Comprehensive Metabolic [id number] 20:20:00 Test Item Value Reference Range Interpretation [...] 189 U/L 46-116 H = ALP) Ethanol [id number] 20:20:00 Test Item Value Reference Range Interpretation Comments Ethanol (test code = ETOH) 10 mg/dL Sars-CoV-2/FLU A/B RSV [id number] 20:20:00 Test Item Value Reference Range Interpretation [...] = Amplification SARS-CoV-2 PCR Result:) UA, Urinalysis Tmzrodvcwwo6851-30-71 20:20:00 Test Item Value Reference Range Interpretation Comments Color,Urine (test code = Yellow Y UCOL) Clarity,Urine (test code = Clear Clear UCLAR) PH,Urine (test code = 7.0 5.5-8.5 UPH.XX) Specific [place],Urine 1.020 1.005-1.030 N (test code = USG) [...] cells/uL Negative (test code = ULEU) Drug Screen,[id number] 20:20:00 Test Item Value Reference Range Interpretation [...] code = UTHCS) CT head/brain wo con [facility] [address] [place] [address] Patient Name: Walt Velazquez Medical Record#: [id number] Address: Homeless City/State/Zip: [place] [address]: Vinnie Navarro MD Phone: Insurance: Self Pay /Age/Sex: 1970/50/M Admit/Reg Date: 09/17/[address]: Vinnie Navarro MD Location: [facility]/ PCP: Pcp-Md KERWIN Stiles Date of Service: 09/17/21 Order (s): CT head/brain wo con CPT Code: 54480 Report Number: [id number] Reason for Exam: Altered mental status Location [...] Sanders MD 09/17/211824 Signed By: Karen Sanders MD09/17/211824 TD/TT: 09/17/211824 Tech: [id number] cc: PCPNO; THELA* Vinnie Navarro MD; Pcp-Md KERWIN Stiles"
[2022-05-07 01:03] LABS: Absolute Lymphocytes (CBC) 2.3 K/uL (0.7-4.9); Hematocrit 53.4 % (39.6-49.0); Lymphocytes % 22.2 % (15.3-44.8); MCV 96.5 fL (80-100); MPV 7.5 fL (7.6-11.3); RBC Red Blood Cell Count 5.54 M/uL (4.33-5.43)
[2022-05-07 01:16] LABS: Albumin 4.1 g/dL (3.4-5.0); Bilirubin Total 0.2 mg/dL (0.2-1.0); Protein, Total 8.2 g/dL (6.4-8.2)
[2022-05-07 01:27] LABS: Potassium 3.7 mmol/L (3.5-5.1)
--- NOTE | 2022-05-07 01:34 | EDPHYS ---
Physician Documentation [facility] Name: Walt Velazquez Age: 51 yrs Sex: Male : 1970 Arrival Date: 05/07/2022 Time: 00:13 Bed 7 Private MD: ED Physician Horacio Enamorado HPI: 05/07 00:38 This 51 yrs old Male presents to ER via EMS with complaints of Seizure. rt 00:38 The patient presents after having a possible seizure episode, Unwitnessed. Seizure rt onset: the onset is not known. Seizure Hx: Seizure history. Associated injury: The patient did not suffer any apparent associated injury. EMS care: none. Current symptoms: Currently, the patient is not experiencing any symptoms. Patient with history of seizure disorder presents to the ED with reported seizure, this was unwitnessed. Patient reports compliance with his medications. He has no complaints in the ED at this time. Symptoms are moderate in severity, no other aggravating or alleviating factors. Patient states that he felt that he was going to have a seizure, therefore, he laid down did not hit his head.. Historical: - Allergies: 00:14 No Known Allergies; kd3 - PMHx: 00:14 Alcoholism; Bipolar II; Hypertensive disorder; Parkinsons; Seizure; kd3 - Immunization history:: Adult Immunizations not up to date. - Social history:: Smoking status: Patient reports the use of cigarette tobacco products, smokes one-half pack cigarettes per day, Patient uses alcohol. - Family history:: not pertinent. ROS: 00:38 Constitutional: Negative for fever, chills, and weight loss, Eyes: Negative for injury, rt pain, redness, and discharge, ENT: Negative for injury, pain, and discharge, Neck: Negative for injury, pain, and swelling, Cardiovascular: Negative for chest pain, palpitations, and edema, Respiratory: Negative for shortness of breath, cough, wheezing, and pleuritic chest pain, Abdomen/GI: Negative for abdominal pain, nausea, vomiting, diarrhea, and constipation, MS/Extremity: Negative for injury and deformity, Skin: Negative for injury, rash, and discoloration, Psych: Negative for depression, anxiety, suicide ideation, homicidal ideation, and hallucinations. 00:38 Neuro: Positive for seizure activity, Negative for altered mental status. Exam: 00:38 Constitutional: This is a well developed, well nourished patient who is awake, alert, rt and in no acute distress. Head/Face: Normocephalic, atraumatic. Eyes: Pupils equal round and reactive to light, extra-ocular motions intact. Lids and lashes normal. Conjunctiva and sclera are non-icteric and not injected. Cornea within normal limits. Periorbital areas with no swelling, redness, or edema. Neck: Trachea midline, no thyromegaly or masses palpated, and no cervical lymphadenopathy. Supple, full range of motion without nuchal rigidity, or vertebral point tenderness. No Meningismus. Chest/axilla: Normal chest wall appearance and motion. Nontender with no deformity. No lesions are appreciated. Cardiovascular: Regular rate and rhythm with a normal S1 and S2. No gallops, murmurs, or rubs. Normal PMI, no JVD. No pulse deficits. Respiratory: Lungs have equal breath sounds bilaterally, clear to auscultation and percussion. No rales, rhonchi or wheezes noted. No increased work of breathing, no retractions or nasal flaring. Abdomen/GI: Soft, non-tender, with normal bowel sounds. No distension or tympany. No guarding or rebound. No evidence of tenderness throughout. Skin: Warm, dry with normal turgor. Normal color with no rashes, no lesions, and no evidence of cellulitis. MS/ Extremity: Pulses equal, no cyanosis. Neurovascular intact. Full, normal range of motion. Neuro: Awake and alert, GCS 15, oriented to person, place, time, and situation. Cranial nerves II-XII grossly intact. Motor strength 5/5 in all extremities. Sensory grossly intact. Cerebellar exam normal. Normal gait. Psych: Awake, alert, with orientation to person, place and time. Behavior, mood, and affect are within normal limits. Vital Signs: 00:29 Pulse 93; Resp 20 S; Pulse Ox 100% on R/A; as6 00:33 Weight 58.97 kg (R); Height 5 ft. 3 in. (160.02 cm) (R); Pain 4/10; as6 00:34 BP 155 / 96; as6 01:30 BP 105 / 77; Pulse 78; Resp 16; Temp 98; Pulse Ox 97% ; Pain 4/10; pf1 00:33 Body Mass Index 23.03 (58.97 kg, 160.02 cm) as6 MDM: 00:16 Patient medically screened. rt 01:35 Differential diagnosis: seizure. Data reviewed: vital signs, nurses notes, old medical rt records, lab test result(s). ED course: Patient with history of seizure disorder presents to the ED with breakthrough seizure. He has no focal neurologic deficits, is returned to baseline. Labs are benign. No further work-up is indicated this time, he is stable for outpatient care, return precautions discussed.. 05/07 00:21 Order name: CBC with Diff; Complete Time: :28 rt 05/07 00:21 Order name: CMP; Complete Time: : rt Administered Medications: No medications were administered Disposition Summary: 05/07/22 01:33 Discharge Ordered Location: Home rt Problem: an acute exacerbation rt Symptoms: are resolved rt Condition: Stable rt Diagnosis - Other seizures rt Followup: rt - With: Private Physician - When: 2 - 3 days - Reason: Discharge Instructions: - Discharge Summary Sheet rt - Epilepsy rt Forms: - Medication Reconciliation Form rt - Thank You Letter rt - Antibiotic Education rt - Prescription Opioid Use rt Signatures: Dispatcher [employer] Nico Mcdowell RN RN as6 Tamara Ellsworth RN RN kd3 Horacio Enamorado MD MD rt
--- NOTE | 2022-05-07 01:34 | ER ---
Nurse's Notes [facility] Name: Walt Velazquez Age: 51 yrs Sex: Male : 1970 Arrival Date: 05/07/2022 Time: 00:13 Bed 7 Private MD: Diagnosis: Other seizures Presentation: 05/07 00:13 Chief complaint: EMS states: called out for seizure. seizure was unwitnessed, pt AAO kd3 X4. Coronavirus screen: At this time, the client does not indicate any symptoms associated with coronavirus-19. Ebola Screen: No symptoms or risks identified at this time. Risk Assessment: Do you want to hurt yourself or someone else? Patient reports no desire to harm self or others. Onset of symptoms was May 06, 2022. 00:13 Method Of Arrival: EMS: [facility] kd3 00:13 Acuity: LATASHA 3 kd3 00:33 Initial Sepsis Screen: Does the patient meet any 2 criteria? No. Patient's initial as6 sepsis screen is negative. Does the patient have a suspected source of infection? No. Patient's initial sepsis screen is negative. Historical: - Allergies: 00:14 No Known Allergies; kd3 - PMHx: 00:14 Alcoholism; Bipolar II; Hypertensive disorder; Parkinsons; Seizure; kd3 - Immunization history:: Adult Immunizations not up to date. - Social history:: Smoking status: Patient reports the use of cigarette tobacco products, smokes one-half pack cigarettes per day, Patient uses alcohol. - Family history:: not pertinent. Screenin:33 Abuse screen: Denies threats or abuse. Denies injuries from another. Nutritional as6 screening: No deficits noted. Tuberculosis screening: No symptoms or risk factors identified. Fall Risk None identified. Assessment: 00:20 General: Appears in no apparent distress. unkempt, Behavior is calm, cooperative, pf1 appropriate for age. 00:20 Pain: Complains of pain in Patient C/O chronic right foot and left foot pain and pf1 chronic mouth/dental pain. Neuro: Reports Patient C/O seizure activity [employer]. Patient arrived per EMS. EMS stated patient's seizure was unwitnessed. . Cardiovascular: No deficits noted. Respiratory: No deficits noted. GI: No deficits noted. : No deficits noted. EENT: No deficits noted. Derm: No deficits noted. Vital Signs: 00:29 Pulse 93; Resp 20 S; Pulse Ox 100% on R/A; as6 00:33 Weight 58.97 kg (R); Height 5 ft. 3 in. (160.02 cm) (R); Pain 4/10; as6 00:34 BP 155 / 96; as6 01:30 BP 105 / 77; Pulse 78; Resp 16; Temp 98; Pulse Ox 97% ; Pain 4/10; pf1 00:33 Body Mass Index 23.03 (58.97 kg, 160.02 cm) as6 ED Course: 00:13 Patient arrived in ED. kd3 00:14 Triage completed. kd3 00:15 Horacio Enamorado MD is Attending Physician. rt 00:15 Arm band placed on. kd3 00:25 Inserted saline lock: 20 gauge in right antecubital area, using aseptic technique. pf1 00:25 No provider procedures requiring assistance completed. pf1 00:29 Nico Dean RN is Primary Nurse. as6 00:34 Placed in gown. Bed in low position. Call light in reach. Side rails up X 1. Client as6 placed on continuous cardiac and pulse oximetry monitoring. NIBP monitoring applied. 01:52 IV discontinued, intact, bleeding controlled, No redness/swelling at site. Pressure pf1 dressing applied. Administered Medications: No medications were administered Medication: 01:47 VIS not applicable for this client. pf1 Outcome: 01:33 Discharge ordered by . rt 01:49 Discharged to home ambulatory. pf1 01:49 Condition: good 01:49 Discharge instructions given to patient, Instructed on discharge instructions, follow up and referral plans. Demonstrated understanding of instructions, follow-up care. 01:54 Patient left the ED. pf1 Signatures: Nico Dean RN RN as6 Tamara Ellsworth RN RN kd3 Horacio Enamorado MD MD rt Iman davis RN RN pf1
[2022-05-07 02:16] VITALS: BP 105/77; TEMP 98; O2SAT 97
== END 2022-05-07 01:54 | disposition home or self-care (01) ==
LOC: ER 00:11
DX: G40.89 Other seizures (principal); F10.20 Alcohol dependence, uncomplicated; G20 Parkinson's disease; F17.210 Nicotine dependence, cigarettes, uncomplicated
CPT/HCPCS: 36415; 80053; 85025; 99283

== ENCOUNTER 2022-05-07 15:17 | Emergency (ER) | payer SELFPAY ==
--- OUTSIDE RECORDS SUMMARY | 2022-05-07 15:23 | XMS REPORT | Continuity of Care Document ---
:1970 Author Organization [facility] t Address [address] [place] [address] Care Team Providers Name Role Phone Pcp-None [...] Policy Number Effective Date [id number] 00:00:00 Problems Condition Condition Condition Status Onset [...] ia 7-10 ity of 00:00: [place] [facility] Chest Chest Disease Active Univers pain, pain, 7 ity of unspecif[place] s 00 No Known DA Active U 2019- [facility] 2-16 Allergie 00:00: s 00 No Known DA Active U 2020-1 [facility] Drug 2-15 Allergie 00:00: s 00 No Known DA Active U 2020-1 [facility] Drug 2-02 Allergie 00:00: s 00 Trazodon Propensi Active Other - See U nivers e ty to comments 4-17 ity of adverse 00:00: [place] reaction 00 [facility] Branch TRAZODON DRUG Active Other-Cmnt Univ ers E INGREDI 4-17 ity of 00:00: [place] 00 [facility] Social History Social Habit Start Date Stop Date Quantity Comments Source History of Smokes tobacco University of tobacco use daily [facility] Exposure to 2022-03-27 2022-04-06 Unable to assess Univers ity of SARS-CoV-2 00:00:00 09:36:00 [facility] (event) Branch Alcohol intake 2022-01-19 2022-01-19 Current drinker Unive rsity of 00:00:00 00:00:00 of alcohol [facility] (finding) Branch Tobacco use and 2021-12-28 2021-12-28 Smokeless tobacco Un iversity of exposure 00:00:00 00:00:[address] [facility] Tobacco Comment 2021-12-28 2021-12-28 1/2 a pack a day Uni versity of 00:00:00 00:00:00 [facility] Sex Ass[birth year] At [birth year] Universit y of 00:00:00 00:00:00 [facility] Smoking Status Start Date Stop Date Source Smokes tobacco daily 2021-12-28 00:00:[address] [facility] Medications Ordered Filled Start Stop Current Ordering Indication Dosage Frequency Signature Comments Components Source Medication Medication Date Date Medication? Clinician (SIG) Name Name ketorolac 2021-06- No 15mg 15 mg, Unive rs (TORADOL) 0-16 10-16 Slow IV ity of injection 16:00: 14:50 Push, [place] 15 mg 00 :00 ONCE, 1 Medical dose, On Branch 04/06/22 at 1100, JACIEL ondansetron 2021-06- No 4mg 4 mg, Slow Univers (ZOFRAN 0-16 10-16 IV Push, ity of (PF)) 15:45: 14:50 ONCE, 1 [place] injection 4 00 :00 dose, On Medi yudy mg [place] 04/06/22 at 1045, JACIEL oxazepam 2021- No 15mg 15 mg, Univer s (SERAX) 12-31 07-13 Oral, Q12H ity o f capsule 15 06:28: 06:29 [place] 2 [place] 17 :00 doses, Medical First dose Branch on Thu12/31/21 at 0130, Last dose on Thu12/31/21 at 1330, Routine multivitami Yes [id number] 1{tbl} Take 1 Univers n tablet 12-31 [id number] tablet by ity of 00:00: mouth in [place] 00 the Medical morning. Branch thiamine Yes [id number] 100mg Take 1 Univers 100 mg 12-31 520305 tablet by ity of tablet 00:00: mouth in [place] 00 the Medical morning. Branch aspirin 81 Yes [id number] 81mg Take 1 Univers mg chewable 12-31 558124 tablet by i ty of tablet 00:00: mouth in [place] the Medical morning. Branch multivitami 2021-0 Yes [id number] 1{tbl} Take 1 Univers n tablet 7-12 487222 tablet by ity of 00:00: mouth in [place] the Medical morning. Branch thiamine 2021-0 Yes [id number] 100mg Take 1 Univers 100 mg 7-12 118874 tablet by ity of tablet 00:00: mouth in [place] the Medical morning. Branch aspirin 81 2021-0 Yes [id number] 81mg Take 1 Univers mg chewable 7-12 872110 tablet by i ty of tablet 00:00: mouth in [place] the Medical morning. Branch multivitami 2021-0 Yes [id number] 1{tbl} Take 1 Univers n tablet 7-12 218030 tablet by ity of 00:00: mouth in [place] the Medical morning. Branch thiamine 2021-0 Yes [id number] 100mg Take 1 Univers 100 mg 7- 644858 tablet by ity of tablet 00:00: mouth in [place] the Medical morning. Branch aspirin 81 2021-0 Yes [id number] 81mg Take 1 Univers mg chewable 7- 373093 tablet by i ty of tablet 00:00: mouth in [place] the Medical morning. Branch multivitami 2021-0 Yes [id number] 1{tbl} Take 1 Univers n tablet 7- 409641 tablet by ity of 00:00: mouth in [place] the Medical morning. Branch thiamine 2021-0 Yes [id number] 100mg Take 1 Univers 100 mg 7- 657927 tablet by ity of tablet 00:00: mouth in [place] the Medical morning. Branch aspirin 81 2021-0 Yes [id number] 81mg Take 1 Univers mg chewable - 467620 tablet by i ty of tablet 00:00: mouth in [place] the Medical morning. Branch foLIC acid 2021-2021- No [id number] 1mg Take 1 Univers 1 mg tablet 12-31 868642 tablet by ity of 00:00: 04:59 mouth in [place] 00 :00 the Medical morning Branch for 30 days. foLIC acid 2021-0 2021- No [id number] 1mg Take 1 Univers 1 mg tablet 12-31 688014 tablet by ity of 00:00: 04:59 mouth in [place] 00 :00 the Medical morning Branch for 30 days. foLIC acid 2021- No [id number] 1mg Take 1 Univers 1 mg tablet 12-31 039406 tablet by ity of 00:00: 04:59 mouth in [place] 00 :00 [facility] for 30 days. metFORMIN Yes [id number] 500mg Take 1 Univers 500 mg 7- 527416 tablet by ity of tablet 00:00: mouth in [address] and 1 tablet in the evening. Take with meals. metFORMIN Yes [id number] 500mg Take 1 Univers 500 mg 7-11 633921 tablet by ity of tablet 00:00: mouth in [address] and 1 tablet in the evening. Take with meals. metFORMIN Yes [id number] 500mg Take 1 Univers 500 mg 7- 505037 tablet by ity of tablet 00:00: mouth in [address] and 1 tablet in the evening. Take with meals. metFORMIN Yes [id number] 500mg Take 1 Univers 500 mg 7-11 310961 tablet by ity of tablet 00:00: mouth in [address] and 1 tablet in the evening. Take with meals. aspirin Yes 81mg 81 mg, Univers chewable 7-10 Oral, ity of tablet 81 14:00: DAILY, [place] mg 00 First dose Medical on [facility] 12/29/21 at 0900, Until Discontinu ed, Routine sulfur 2021- No [id number] 5mL 5 mL, Unive rs hexafluorid 12-29 07-10 Intravenou i ty of e microsphr 13:45: 13:45 s, ONCE, 1 [place] (LUMASON) 00 :00 dose, On Medica l injection 5 [facility] mL 12/29/21 at 0845, Routine
member service representative approving Restricted medication : STEFANIE GORMAN enoxaparin Yes 40mg 40 mg, Unive rs (LOVENOX) 7-10 Subcutaneo ity of injection 13:00: us, Q24H, [place] 40 mg 00 First dose Medical on [facility] 12/29/21 at 0800, Until Discontinu ed, Routine Sliding Yes Subcutaneo Univ ers Scale 7-10 us, TID ity of Insulin - 13:00: MEALS+HS, [place] Lispro 00 First dose Medical (HumaLOG) + on [facility] Fsbg 12/29/21 at Testing 0800, Until Discontinu ed, Routine diazePAM 202-0 202- No 10mg 10 mg, Univer s (VALIUM) 7-10 07-10 Intravenou ity of injection 05:30: 04:40 s, ONCE, 1 [place] 10 mg 00 :00 dose, On [facility] 12/29/21 at 0030, Routine diazePAM 2021-0 202- No 10mg 10 mg, Univer s (VALIUM) 7-10 07-10 Intravenou ity of injection 04:15: 03:17 s, ONCE, 1 [place] 10 mg 00 :00 dose, On Medical [facility] 12/28/21 Branch at 2315, Routine diazePAM 2021-0 Yes 5mg 5 mg, Univers (VALIUM) 7-10 Intravenou ity o f injection 5 03:45: s, QIDPRN, [place] mg 01 Starting Medical on [facility] 12/28/21 at 2245, Until Discontinu ed, Routine, Seizures, Agitation foLIC acid 2021-0 Yes 1mg 1 mg, Univer s (FOLATE) 7-10 Oral, ity of tablet 1 mg 03:45: DAILY, [place] 00 First dose Medical on [facility] 12/28/21 at 2245, Until Discontinu ed, Routine thiamine 2021-0 Yes 100mg 100 mg, Unive rs (VITAMIN 7-10 Oral, ity of B1) tablet 03:45: DAILY, [place] 100 mg 00 First dose Medical (after Branch last modificati on) on [facility] 12/28/21 at 2245, Until Discontinu ed, Routine glucagon 2021-0 Yes 1mg 1 mg, Univers (GLUCAGEN 7-10 Intramuscu ity of DIAGNOSTIC 03:42: lar, PRN, [place]) 19 Starting Medical injection 1 on [facility] 12/28/21 at 2242, Until Discontinu ed, JACIEL, Blood Glucose < or = 70 mg/dL and patient is unable to swallow or has mental changes. dextrose 2021-0 Yes 250mL 250 mL, IV Un lorena 10% (D10W) 7-10 Infusion, ity of bolus 03:42: PRN - SEE [place] infusion 19 INSTRUCTIO Medic al 250 mL NS, Branch Administer over 60 Minutes, Other, If blood glucose is < or = 70 mg/dL and patient is unable to swallow or has mental status changes, Starting on [facility] 12/28/21 at 2242
If blood glucose is [...] [place] mg 00 :00 dose, On Medical [facility] 12/28/21 Branch at 2230, Routine
Is the medication being used for status epilepticu s? No oxazepam 0 Yes 15mg 15 mg, Univers (SERAX) 7-10 Oral, ity of capsule 15 00:28: Q4HPRN, [place] mg 20 Starting Medical on [facility] Branch 12/28/21 at 1928, Until Discontinu ed, Routine, Only while awake for DBP equal to or greater than 100, HR equal to or greater than 100. ondansetron 0 Yes 4mg 4 mg, Slow Univers (ZOFRAN 7-10 IV Push, ity of (PF)) 00:23: Q6HPRN, [place] injection 4 47 Starting Medi yudy mg on [facility] Branch 12/28/21 at 1923, Until Discontinu ed, Routine, Nausea and Vomiting (N/V) acetaminoph 0 Yes 650mg 650 mg, Un lorena en 7-10 Oral, ity of (TYLENOL) 00:23: Q6HPRN, [place] tablet 650 37 Starting Medic al mg on [facility] Branch 12/28/21 at 1923, Until Discontinu ed, Routine, Pain (scale 1-3), Temp > 38.5 C chlordiazeP No 25mg 25 mg, Uni vers OXIDE [...] dose, On 12/28/21 at 1745, JACIEL LORazepam No 1mg 1 mg, Slow U nivers [...] 16:00:00 125 mm[Hg] Univer sity of pressure [place] [facility] Diastolic blood 2022-04-06 16:00:00 75 mm[Hg] Unive rsity of pressure [place] [facility] Heart rate 2022-04-06 16:00:00 87 /min Universi ty of [place] [facility] Respiratory rate 2022-04-06 16:00:00 22 /min Univ ersity of [place] [facility] Oxygen saturation in 2022-04-06 16:00:00 98 /min University of Arterial blood by [facility] [place] [facility] Pulse oximetry Branch Body temperature 2022-04-06 14:41:00 37 Theresa Univ ersity of [place] [facility] Body height 2022-04-06 14:41:00 160 cm Universi ty of [place] [facility] Body weight 2022-04-06 14:41:00 63.504 kg Universi ty of [place] [facility] BMI 2022-04-06 14:41:00 24.80 kg/m2 Universi ty of [place] [facility] Systolic blood 2022-01-20 02:27:00 121 mm[Hg] Univer sity of pressure [place] [facility] Diastolic blood 2022-01-20 02:27:00 75 mm[Hg] Unive rsity of pressure [place] [facility] Heart rate 2022-01-20 02:27:00 79 /min Universi ty of [place] [facility] Respiratory rate 2022-01-20 02:27:00 12 /min Univ ersity of [place] [facility] Oxygen saturation in 2022-01-20 02:27:00 98 /min University of Arterial blood by [facility] [place] [facility] Pulse oximetry Branch Body temperature 2022-01-19 22:19:00 36.44 Theresa Univ ersity of [place] [facility] Body weight 2022-01-19 22:19:00 60.328 kg Universi ty of [place] [facility] BMI 2022-01-19 22:19:00 23.56 kg/m2 Universi ty of [place] [facility] Systolic blood 2021-12-30 20:52:00 134 mm[Hg] Univer sity of pressure [place] [facility] Diastolic blood 2021-12-30 20:52:00 76 mm[Hg] Unive rsity of pressure [place] [facility] Heart rate 2021-12-30 20:52:00 67 /min Universi ty [facility] [place] [facility] Body temperature 2021-12-30 20:26:00 36.67 Theresa Univ ersity of [place] [facility] Oxygen saturation in 2021-12-30 20:26:00 99 /min [facility] Arterial blood by [facility] [place] [facility] Pulse oximetry [place] Respiratory rate 2021-12-30 16:21:00 18 /min [facility] Body weight 2021-12-30 08:27:00 60.464 kg [facility] BMI 2021-12-30 08:27:00 23.61 kg/m2 [facility] Body height 2021-12-29 01:29:00 160 cm [facility] Procedures Procedure Date / Time Performing Clinician Source Performed XR CHEST 1 VW 2022-04-06 14:51:50 Diya Chowdhury [facility] LIPASE 2022-04-06 14:42:00 Luciana [facility] TROPONIN I 2022-04-06 14:42:00 Diya Chowdhury [facility] COMP. METABOLIC PANEL 2022-04-06 14:42:00 Diya Chowdhury [facility] ([id number] CBC WITH DIFF 2022-04-06 14:42:00 Diya Chowdhury [facility] PROTHROMBIN TIME / INR 2022-04-06 14:42:00 [facility] 2022-04-06 14:42:00 Diya Chowdhury [facility] LACTIC ACID WHOLE BLOOD 2022-01-20 00:22:00 Leticia Hameed [facility] URINE DRUG (IMMUNOASSAY) 2022-01-19 23:10:[address] [facility] SCREEN URINALYSIS 2022-01-19 23:10:00 Leticia [facility]ed [facility] TROPONIN I 2022-01-19 23:00:00 Leticia [facility]ed [facility] COMP. METABOLIC PANEL 2022-01-19 23:00:00 Leticia Hameed [facility] ([id number] LITHIUM 2022-01-19 23:00:00 Leticia Hameed [facility] ETHANOL 2022-01-19 23:00:00 Leticia Hameed [facility] CBC WITH DIFF 2022-01-19 23:00:00 Leticia Hameed [facility] COVID-19 (ID NOW RAPID 2022-01-19 23:00:00 Leticia Hameed [facility] TESTING) Medical Branch CT HEAD WO CONTRAST 2022-01-19 22:49:00 Leticia Hameed [facility] ty [facility] XR CHEST 1 VW 2022-01-19 22:41:00 Leticia Hameed [facility] POCT GLUCOSE (AUTOMATED) 2022-01-19 22:25:00 Leticia Hameed [facility] POCT GLUCOSE (AUTOMATED) 2021-12-30 21:55:00 Jessica Prado [facility] POCT GLUCOSE (AUTOMATED) 2021-12-30 16:21:00 Jessica Prado [facility] POCT GLUCOSE (AUTOMATED) 2021-12-30 12:30:00 Jessica Prado [facility] HEPATIC FUNCTION PANEL 2021-12-30 09:28:00 Maira Gaitan [facility] ([id number]) (ALB,T.PRO,[facility] T,BU/BC,ALT,AST,ALK PHOS) POCT GLUCOSE (AUTOMATED) 2021-12-30 02:11:00 Jessica Prado [facility] POCT GLUCOSE (AUTOMATED) 2021-12-29 21:41:00 Jessica Prado [facility] POCT GLUCOSE (AUTOMATED) 2021-12-29 16:37:00 Jessica Prado [facility] TRANSTHORACIC ECHO (TTE) 2021-12-29 13:05:00 Jessica Prado [facility] W/ CONTRAST Medical [facility] POCT GLUCOSE (AUTOMATED) 2021-12-29 12:41:00 Jessica Prado [facility] TROPONIN I 2021-12-29 09:42:00 Jessica Prado [facility] TROPONIN I 2021-12-29 04:55:00 Eve [facility] HEAD WO CONTRAST 2021-12-28 21:18:22 Pia Renteria [facility] AMMONIA, PLASMA 2021-12-28 21:00:00 Pia Renteria [facility] COVID-19 (ID NOW RAPID 2021-12-28 20:42:00 Pia Renteria [facility] TESTING) Medical Branch LAB ONLY COVID 2021-12-28 20:42:00 Pia Renteria [facility] INTERPRETATION [facility] URINE DRUG (IMMUNOASSAY) 2021-12-28 20:42:00 Pia Renteria [facility] SCREEN W/O REFLEX URINALYSIS 2021-12-28 20:40:00 [facility]-TERMINAL PRO-BNP 2021-12-28 20:40:00 Pia Renteria [facility] TROPONIN I 2021-12-28 20:40:00 [facility] THYROID STIMULATING 2021-12-28 20:40:00 Eve Jessica [facility] HORMONE [facility] COMP. METABOLIC PANEL 2021-12-28 20:40:00 Pia Renteria [facility] ([id number]) [facility] LIPID PANEL ([id number])(TOTAL 2021-12-28 20:40:00 Demetrius [facility] TRIGLYCERIDES, HDL) ETHANOL 2021-12-28 20:40:00 Demetrius [facility] CBC WITH DIFF 2021-12-28 20:40:00 [facility] GLYCOSYLATED HEMOGLOBIN 2021-12-28 20:40:00 Eve [facility] (A1C) [facility] PROTHROMBIN TIME / INR 2021-12-28 20:40:00 Dexter Pia [facility] XR CHEST 1 VW 2021-12-28 20:16:00 [facility] ROUTINE & RHYTHM 2021-12-28 20:04:59 Pia Renteria [facility] Encounters Start End Encounter Admission Attending Care Care Encounter Source Date/Time Date/Time Type Type Clinicians Facility Department ID 2021-09-17 Inpatient [facility] [id number] [facility] 16:45:00 35 2020-06-06 Inpatient [facility] [id number] [facility] 16:07:00 05 2020-06-06 Inpatient [facility] [id number] [facility] 06:20:00 77 2020-06-05 Inpatient [facility] [id number] [facility] 19:35:00 25 2020-05-23 Inpatient [facility] [id number] [facility] 19:53:00 39 2020-05-23 Inpatient [facility] [id number] [facility] 19:53:00 39 2022-04-06 2022-04-06 Emergency X LUCIANA [facility] ERT [id number] Univers 09:38:00 11:42:00 DIYA rahman [facility] 2022-04-06 2022-04-06 Emergency Luciana [facility] [id number] Univers 09:38:00 11:42:00 Diya OTTO [id number] i Mila 4.2.7.2.686 [facility] [id number] [address] 2022-03-07 2022-03-07 Emergency [facility] [id number] [facility] 12:38:00 12:38:00 74 2022-03-07 2022-03-07 Emergency Emergency Fidel Cuellar [facility] [id number] [facility] 12:38:00 12:38:00 74 2022-01-19 2022-01-19 Emergency X NNEKA NJYULIA ERT [id number] Univers 17:18:00 22:00:00 DIRK rahman [facility] 2022-01-19 2022-01-19 Emergency Leticia Hameed [facility] 1.2.840. [id number] Univers 17:18:00 22:00:00 Dirk Yarbrough [id number] Sweta [id number] [facility] [id number] [facility] 084 Branch 2021-12-31 2021-12-31 Transition EDMUNDO Portillo 1.2.840.114 [id number] Univers 00:00:00 00:00:00 of Care Faye RANKIN [id number] ity of RAMON 4.2.7.2.686 [facility] [id number] [facility] 403 Branch 2021-12-28 2021-12-30 [facility] [id number] Univers 14:53:00 17:42:[address] [facility] 2021-12-28 2021-12-30 [facility] Pia Renteria [facility] 1.2.840. 114 [id number] [facility] 14:53:00 17:42:00 Encounter Jessica Prado [id number] ity of [facility] [id number] [facility] [id number] [facility] 081 Branch 2021-09-17 2021-09-17 Emergency [facility] [id number] [facility] 16:47:00 16:47:00 35 2020-06-06 2020-06-06 Emergency [facility] [id number] [facility] 16:07:00 16:07:00 05 Results Test Description Test Time Test Comments Results Result Comments Source TROPONIN I 2022-04-06 15:15:32 Test Item Value Reference Range Interpretation Comme nts TROPONIN I (test code = 0.007 ng/mL See_Comment [Au tomated message] The 3356170491) system which ge nerated this result tra [...] biotin. Lab Interpretation Normal (test code = 35331-1) [facility] 15:08[facility]29 Test Item Value Reference Range Interpretation Comments APTT Patient (test See_Comment [Automat ed code = 3173-2) message] The system which generated this result transmitted reference range : 23 - 38 Seconds . The reference range was not used to interpr et this result as normal/abnormal . JUAN ALBERTO (test code = JUAN ALBERTO) The [facility] patient population mean normal value for aPTT is 30 seconds. Lab Interpretation Normal (test code = 72956-2) [facility] / [id number] 15:06:28 Test Item Value Reference Range Interpretation [...] tions. Lab Interpretation (test Normal code = 91370-9) [facility] ([id number])2022-04-06 15:03:31 Test Item Value Reference Range Interpretation Comments NA (test code = 136 mmol/L 135-145 1099759612) K (test code = 5.0 mmol/L 3.5-5 5925219143) CL (test code = 104 mmol/L 98-108 2085581535) CO2 TOTAL (test code = 21 mmol/L 23-31 L 3421539308) AGAP (test code = 2-16 6945660659) BUN (test code = 11 mg/dL 7-23 6818731153) GLUCOSE (test code = 162 mg/dL 70-110 H 2930443442) CREATININE (test code = 0.52 mg/dL 0.6-1.25 L 0698059589) TOTAL BILI (test code = 1.0 mg/dL 0.1-1.8 9265101288) CALCIUM (test code = 9.3 mg/dL 8.6-10.6 1568872105) T PROTEIN (test code = 7.4 g/dL 6.3-8.2 3613833412) ALBUMIN (test code = 4.4 g/dL 3.5-5 0896243173) ALK PHOS (test code = 134 U/L 34-122 H 9905604662) ALTv (test code = 17 U/L 5-50 1742-6) AST(SGOT) (test code = 38 U/L 13-40 3440819974) eGFR (test code = mL/min/1.73m2 3118088893) JUAN ALBERTO (test code = JUAN ALBERTO) [...] tests). Lab Interpretation Abnormal (test code = 97299-4) [facility], [id number] 15:03:31 Test Item Value Reference Range Interpretation Comments LIPASE (test code = 4120990134) 29 U/L 0-220 Lab Interpretation (test code = Normal 43174-1) [facility] WITH [id number] 14:51:49 Test Item Value Reference Range Interpretation Comments WBC (test code = See_Comment [Automated 6090-2) message] The sy stem which generated this [...] RDW-SD (test code = 45.9 fL 38.5-51.6 73269-2) RDW-CV (test code = 13.3 % 12.1-15.4 788-0) PLT (test code = See_Comment [Automated 777-3) message] The sy stem which generated this result transmitted reference range : 150 - 328 10*3/ ?L. The reference r elba was not used to interpret this result as normal/abnormal . MPV (test code = 8.4 fL 9.8-13 L 20924-6) NRBC/100 WBC (test See_Comment [Automat ed code = 3370766889) message] The system which generated this result transmitted reference range : 0.0 - 10.0 /100 WBCs. The refer ence range was not u sed to interpret th is result as normal/abnormal . NRBC x10^3 (test code See_Comment [Auto mated = 7199065895) message] The s ystem which generated this result transmitted reference range : 10*3/?L. The reference range was not used to interpret this result as normal/abnormal . GRAN MAT (NEUT) % 63.0 % (test code = 770-8) IMM GRAN % (test code 0.50 % = 3763067039) LYMPH % (test code = 25.2 % 736-9) MONO % (test code = 9.8 % 5905-5) EOS % (test code = 0.3 % 713-8) BASO % (test code = 1.2 % 706-2) GRAN MAT x10^3(ANC) 3.73 10*3/uL 1.99-6.95 (test code = 6847729698) IMM GRAN x10^3 (test 0.03 10*3/uL 0-0.06 code = 1918772149) LYMPH x10^3 (test code 1.49 10*3/uL 1.09-3.23 = 731-0) MONO x10^3 (test code 0.58 10*3/uL 0.36-1.02 = 742-7) EOS x10^3 (test code = 0.06-0.53 L 711-2) BASO x10^3 (test code 0.07 10*3/uL 0.01-0.09 = 704-7) Lab Interpretation Abnormal (test code = 58723-9) [facility], Urinalysis Rflx Cult/[id number] 13:53:00 Test Item Value Reference Range Interpretation Comments Color,Urine (test code = UCOL) Yellow Yellow Clarity,Urine (test code = Cloudy Clear A UCLAR) Ph, Urine (test code = UPH) 7.5 5.0-9.0 N Specific [place],Urine (test 1.025 1.005-1.030 N code = USG) [...] mg/dL Negative code = ULEU) UF REFLEXDrug Screen,[id number] 13:53:00 Test Item Value Reference Range Interpretation [...] code = UPROP) Complete Blood Count Auto [id number] 12:58:00 Test Item Value Reference Range Interpretation [...] = NRBCP) 0 % Coronavirus PCR, COVID19 [id number] 12:58:00 Test Item Value Reference Range Interpretation Comments Coronavirus PCR, COVID19 Rapid (test code = SARSCOV2) Coronavirus PCR, COVID19 Reference Range: Rapid (test code = Negative VWNNLNJ01.1) SARS-CoV-2 PCR Result: Negative by RT-PCR (test code = SARS-CoV-2 PCR Result:) COVID-19 Status: AsymptomaticComprehensive Metabolic Fauuw1250-96-67 12:58:00 Test Item Value Reference Range Interpretation [...] 144 U/L 46-116 H = ALP) Ethanol Ponig0458-04-60 12:58:00 Test Item Value Reference Range Interpretation Comments Ethanol (test code < 3 mg/dL The pharm acological = ETOH) response to blo od alcohol levels mayvary from individual to i ndividual. The fatal surinder ntrationhas been reported t o be >400mg/dL. [id number] 01:47:56 Test Item Value Reference Range Interpretation Comments Blomk[place] (test code = 0.7 mmol/L 0.6-1.2 8290875679) JUAN ALBERTO (test code = JUAN ALBERTO) Toxic Range: ? Greater than 1.2 mmol/L Lab Interpretation (test Normal code = 99257-1) [facility] [id number] 00:26:53 Test Item Value Reference Interpretation Comments Range TROPONIN I (test 0.002 ng/mL See_Comment [Automated code = 4546220439) message] The system which generated this result [...] biotin. Lab Interpretation Normal (test code = 28048-9) [facility]52 ALCOHOL<10mg/dL01/19/2022 7:[address] [facility]<10 Nuclihoi61-653 Toxic>100 Depression of [employer]>[address] [facility] METABOLIC PANEL (54150) 2022-01-20 00:16:16 Test Item Value Reference Range Interpretation Comments NA (test code = 137 mmol/L 135-145 6844435847) K (test code = 4.5 mmol/L 3.5-5 4124719372) CL (test code = 103 mmol/L 98-108 5940685581) CO2 TOTAL (test code = 26 mmol/L 23-31 6100659596) AGAP (test code = 2-16 0953683136) BUN (test code = 10 mg/dL 7-23 8374422418) GLUCOSE (test code = 121 mg/dL 70-110 H 8816261630) CREATININE (test code = 0.65 mg/dL 0.6-1.25 2373397420) TOTAL BILI (test code = 0.8 mg/dL 0.1-1.4 0599022012) CALCIUM (test code = 11.4 mg/dL 8.6-10.6 H 7772389157) T PROTEIN (test code = 7.2 g/dL 6.3-8.2 1882487043) ALBUMIN (test code = 4.6 g/dL 3.5-5 1405932019) ALK PHOS (test code = 112 U/L 34-122 6594917412) ALTv (test code = 19 U/L 5-50 1742-6) AST(SGOT) (test code = 26 U/L 13-40 2195154714) eGFR (test code = mL/min/1.73m2 1213310564) JUAN ALBERTO (test code = JUAN ALBERTO) [...] tests). Lab Interpretation Abnormal (test code = 43270-6) [facility] WITH [id number] 23:43:54 Test Item Value Reference Range Interpretation [...] RDW-SD (test code = 44.0 fL 38.5-51.6 48209-4) RDW-CV (test code = 12.6 % 12.1-15.4 788-0) PLT (test code = See_Comment [Automated 777-3) message] The sy stem which generated this result transmitted reference range : 150 - 328 10*3/ ?L. The reference r elba was not used to interpret this result as normal/abnormal . MPV (test code = 9.1 fL 9.8-13 L 29439-0) NRBC/100 WBC (test See_Comment [Automat ed code = 1336835542) message] The system which generated this result transmitted reference range : 0.0 - 10.0 /100 WBCs. The refer ence range was not u sed to interpret th is result as normal/abnormal . NRBC x10^3 (test code See_Comment [Auto mated = 0876279778) message] The s ystem which generated this result transmitted reference range : 10*3/?L. The reference range was not used to interpret this result as normal/abnormal . GRAN MAT (NEUT) % 69.8 % (test code = 770-8) IMM GRAN % (test code 0.40 % = 8771405375) LYMPH % (test code = 18.0 % 736-9) MONO % (test code = 10.9 % 5905-5) EOS % (test code = 0.1 % 713-8) BASO % (test code = 0.8 % 706-2) GRAN MAT x10^3(ANC) 5.58 10*3/uL 1.99-6.95 (test code = 6100055372) IMM GRAN x10^3 (test 0.03 10*3/uL 0-0.06 code = 1514232005) LYMPH x10^3 (test code 1.44 10*3/uL 1.09-3.23 = 731-0) MONO x10^3 (test code 0.87 10*3/uL 0.36-1.02 = 742-7) EOS x10^3 (test code = 0.06-0.53 L 711-2) BASO x10^3 (test code 0.06 10*3/uL 0.01-0.09 = 704-7) Lab Interpretation Abnormal (test code = 15130-8) [facility] GLUCOSE (AUTOMATED)2022-01-19 22:27:41 Test Item Value Reference Range Interpretation Comments POCT GLU (test code = 5820332579) 123 mg/dL 70-110 H Lab Interpretation (test code = Abnormal 52397-9) [facility] GLUCOSE (AUTOMATED)2021-12-30 22:08:16 Test Item Value Reference Range Interpretation Comments POCT GLU (test code = 0177512326) 167 mg/dL 70-110 H Lab Interpretation (test code = Abnormal 66048-5) [facility] GLUCOSE (AUTOMATED)2021-12-30 16:50:40 Test Item Value Reference Range Interpretation Comments POCT GLU (test code = 6883953884) 154 mg/dL 70-110 H Lab Interpretation (test code = Abnormal 35962-5) [facility] GLUCOSE (AUTOMATED)2021-12-30 12:38:43 Test Item Value Reference Range Interpretation Comments POCT GLU (test code = 4350156037) 164 mg/dL 70-110 H Lab Interpretation (test code = Abnormal 03832-9) [facility] GLUCOSE (AUTOMATED)2021-12-30 02:14:58 Test Item Value Reference Range Interpretation Comments POCT GLU (test code = 3255733886) 220 mg/dL 70-110 H Lab Interpretation (test code = Abnormal 56071-1) [facility] GLUCOSE (AUTOMATED)2021-12-29 21:50:02 Test Item Value Reference Range Interpretation Comments POCT GLU (test code = 0928589410) 191 mg/dL 70-110 H Lab Interpretation (test code = Abnormal 79334-6) [facility] GLUCOSE (AUTOMATED)2021-12-29 20:15:01 Test Item Value Reference Range Interpretation Comments POCT GLU (test code = 7773802220) 163 mg/dL 70-110 H Lab Interpretation (test code = Abnormal 86479-0) [facility]2021-[facility]-29 19:12:22 Test Item Value Reference Range Interpretation Comments Height (test code = in 4779071411) Weight (test code = lbs 5127783036) Systolic BP (test code = mmHg 7001996130) Diastolic BP (test code mmHg = 1924230215) Heart Rate (test code = bpm 2200672289) BSA (test code = 1.62 m2 6971138324) Ao root annulus (test 2.45 cm code = 4222823248) Ao root diam (test code 2.45 cm = 1306857073) Aortic root (test code = 2.45 cm 0901510665) ACS (test code = 1.66 cm 6879784665) LA size (test code = 3.2 cm 7480136291) LVOT diameter (test code 1.95 cm = 3586867683) LVIDD (test code = 3.60 cm 9750908118) IVS (test code = 0.94 cm 6007081157) Interventricular Septum 0.94 cm Diastolic Thickness by 2D (test code = 8965578) LVPWD (test code = 0.80 cm 8820306150) PW (test code = 0.80 cm 0.6-1.7 8730447886) EF(Teich) (test code = 52.80 % 2451211521) LVIDS (test code = 2.60 cm 6985936104) FS (test code = 27 % 4185045268) EF - 2D (test code = 52.80 % 60099905) LAV(MOD-sp4) (test code 16.80 mL = 6622596606) MV Peak E Jovany (test code 46.1 cm/s = 5331800467) E wave decelartion time 0.31 s (test code = 2091228032) MV Peak A Jovany (test code 58.1 cm/s = 1560037952) E/A ratio (test code = ratio 6337346106) MV E/e' septal (test 5.7 cm/s code = 9119672114) Tapse (test code = 1.60 cm 4580846591) LVOT stroke volume (test 52.10 cm3 code = 0873811744) LVOT peak jovany (test code 110.6 cm/s = 2644452141) LVOT mn grad (test code mmHg = 0770638184) AV LVOT peak gradient mmHg (test code = 0029919611) LVOT peak VTI (test code 17.4 cm = 8373218888) LV V1 mean (test code = 66.10 cm/s 7041831807) Aortic valve mean 73.0 cm/s velocity (test code = 0537006358) Ao peak jovany (test code = 124.6 cm/s 5704001585) Ao VTI (test code = 18.6 cm 9695446862) AV area by cont VTI 2.8 cm2 (test code = 0181758383) AV area peak jovany (test 2.7 cm2 code = 6879554777) Ao max PG (test code = 6.20 mm[Hg] 8770741529) AV peak gradient (test mmHg code = 1615170877) AV valve area (test code 2.80 cm2 = 5072628730) AV mean gradient (test mmHg code = 5281969061) Radiology Study observation (narrative) (test code = 35028-9) JUAN ALBERTO (test code = JUAN ALBERTO) [...] mL of Lumason ultrasound enhancing agent used. [facility]2021-12-29 12:50:31 Test Item Value Reference Range Interpretation Comments POCT GLU (test code = 2728672866) 141 mg/dL 70-110 H Lab Interpretation (test code = Abnormal 62254-2) [facility] CenterTroponin [id number] 10:38:31 Test Item Value Reference Interpretation Comments Range TROPONIN I (test 0.003 ng/mL See_Comment [Automated code = 2718483855) message] The system which generated this result [...] biotin. Lab Interpretation Normal (test code = 10308-8) [facility] CenterLIP[facility] PANEL (34933)(TOTAL CHOLESTEROL, TRIGLYCERIDES, HDL)2021-12-29 05:56:47 Test Item Value Reference Range Interpretation Comments CHOL (test code = 168 mg/dL 120-200 5019883607) HDL (test code = 102 mg/dL See_Comment [Automated message] 1335865650) The system BeMo generated this result transmit naomie reference range : >=40. The refer ence range was not u sed to interpret th is result as normal/abnormal . HDLC RATIO (test code = See_Comment [Au tomated message] 1681758637) The system BeMo generated this result transmit naomie reference range : <=5.0. The refe rence range was not u sed to interpret th is result as normal/abnormal . TRIG (test code = 55 mg/dL 30-170 9968969045) LDL CHOL (test code = 55 mg/dL See_Comment [Auto mated message] 30583-1) The system BeMo generated this result transmit naomie reference range : <=160. The refe rence range was not u sed to interpret th is result as normal/abnormal . VLDL (test code = 11 mg/dL 5-60 9071103096) Lab Interpretation (test Normal code = 42525-0) [facility] CenterThyroid Stimulating Hormone (TSH)2021-12-29 05:40:29 Test Item Value Reference Range Interpretation Comments TSH (test code = See_Comment Biotin has been 6184671390) reported to cau se a negative bias, interpret resul ts relative to pat ient's use of biotin. [Automated mess age] The system BeMo generated this result transmitted ref erence range: 0.45 - 4 .70 mIU/L. The refe rence range was not u sed to interpret this result as normal/abnor mal. Lab Interpretation (test Normal code = 14511-8) [facility] CenterTroponin [id number] 05:34:29 Test Item Value Reference Interpretation Comments Range TROPONIN I (test 0.006 ng/mL See_Comment [Automated code = 0569803837) message] The system which generated this result [...] biotin. Lab Interpretation Normal (test code = 37959-4) [facility]ETH[facility]OL2022-[facility] 04:43:01 ALCOHOL<10mg/dL12/28/2021 11:[address] Greater than or equal to 80 mg/dL. NOTE: Whole blood values are approximately 10% to 15% lower than serum and plasma.[facility] CenterGlycosylated Hemoglobin (A1C)2021-12-29 01:51:44 Test Item Value Reference Range Interpretation Comments HGB A1C (test code = 6.5 % 4-5.7 H 4548-4) JUAN ALBERTO (test code = JUAN ALBERTO) Reference RangesNormal: <5.7%Prediabetes: 5.7 - 6.4%Diabetes: > 6.5% Lab Interpretation (test Abnormal code = 43689-0) [facility] CenterTROPONIN [id number] 21:26:50 Test Item Value Reference Interpretation Comments Range TROPONIN I (test 0.002 ng/mL See_Comment [Automated code = 4553496131) message] The system which generated this result [...] biotin. Lab Interpretation Normal (test code = 15037-9) [facility] CenterN-TERMINAL [id number]-[id number] 21:23:29 Test Item Value Reference Range Interpretation Comments NT-proBNP (test code 41 pg/mL See_Comment [Autom ated = 4728206709) message] The system which generated this result transmitted reference range : <=125. The reference range was not used to interpret this result as normal/abnormal . JUAN ALBERTO (test code = JUAN ALBRETO) Biotin has been reported to cause a negative bias, interpret results relative to patient's use of biotin. Lab Interpretation Normal (test code = 55342-1) [facility] CenterAMMONIA, [id number] 21:20:38 Test Item Value Reference Range Interpretation Comments AMMONIA (test code = 9-33 L Slight hemolysis 8122114726) Lab Interpretation (test Abnormal code = 67948-8) [facility] CenterCOMP. METABOLIC PANEL (97605)2021-12-28 21:08:48 Test Item Value Reference Range Interpretation Comments NA (test code = 137 mmol/L 135-145 3719508167) K (test code = 4.5 mmol/L 3.5-5 2438258857) CL (test code = 97 mmol/L 98-108 L 2928350427) CO2 TOTAL (test code = 29 mmol/L 23-31 5327393065) AGAP (test code = 2-16 8027646991) BUN (test code = 10 mg/dL 7-23 2226506917) GLUCOSE (test code = 188 mg/dL 70-110 H 3031700619) CREATININE (test code = 0.58 mg/dL 0.6-1.25 L 0429849041) TOTAL BILI (test code = 0.8 mg/dL 0.1-1.3 8836711750) CALCIUM (test code = 10.5 mg/dL 8.6-10.6 9377503747) T PROTEIN (test code = 7.6 g/dL 6.3-8.2 3202528423) ALBUMIN (test code = 4.5 g/dL 3.5-5 1407514664) ALK PHOS (test code = 107 U/L 34-122 9967870671) ALTv (test code = 66 U/L 5-50 H 2-6) AST(SGOT) (test code = 96 U/L 13-40 H 2648765588) eGFR (test code = mL/min/1.73m2 8317597509) JUAN ALBERTO (test code = JUAN ALBERTO) [...] tests). Lab Interpretation Abnormal (test code = 01646-7) [facility] CenterPROTHROMBIN TIME / [id number] 21:01:25 Test Item Value Reference Range Interpretation Comments PROTIME PATIENT (test See_Comment [Auto mated message] code = 5964-2) The system CHROMAom generated this result transmitted ref erence range: 12.0 - 1 4.7 Seconds. The re ference range was not u sed to interpret this result as normal/abnor mal. INR (test code = 6301-6) Nor mal INR <1.1; Warfarin Therap eutic range 2.0 to 3. 0 or 2.5 to 3.5, dep ending upon the indica tions. Lab Interpretation (test Normal code = 99430-9) [facility] WITH [id number] 20:54:03 Test Item Value Reference Range Interpretation [...] RDW-SD (test code = 47.8 fL 38.5-51.6 19148-0) RDW-CV (test code = 13.3 % 12.1-15.4 788-0) PLT (test code = See_Comment [Automated 777-3) message] The sy stem which generated this result transmitted reference range : 150 - 328 10*3/ ?L. The reference r elba was not used to interpret this result as normal/abnormal . MPV (test code = 8.6 fL 9.8-13 L 75710-2) NRBC/100 WBC (test See_Comment [Automat ed code = 2857813038) message] The system which generated this result transmitted reference range : 0.0 - 10.0 /100 WBCs. The refer ence range was not u sed to interpret th is result as normal/abnormal . NRBC x10^3 (test code See_Comment [Auto mated = 4657990274) message] The s ystem which generated this result transmitted reference range : 10*3/?L. The reference range was not used to interpret this result as normal/abnormal . GRAN MAT (NEUT) % 64.1 % (test code = 770-8) IMM GRAN % (test code 0.40 % = 2731483283) LYMPH % (test code = 16.6 % 736-9) MONO % (test code = 17.2 % 5905-5) EOS % (test code = 0.2 % 713-8) BASO % (test code = 1.5 % 706-2) GRAN MAT x10^3(ANC) 3.47 10*3/uL 1.99-6.95 (test code = 1001023580) IMM GRAN x10^3 (test 0-0.06 code = 7759719302) LYMPH x10^3 (test code 0.90 10*3/uL 1.09-3.23 L = 731-0) MONO x10^3 (test code 0.93 10*3/uL 0.36-1.02 = 742-7) EOS x10^3 (test code = 0.06-0.53 L 711-2) BASO x10^3 (test code 0.08 10*3/uL 0.01-0.09 = 704-7) Lab Interpretation Abnormal (test code = 08764-1) [facility] CenterEthanol Abuzr0046-76-81 21:08:00 Test Item Value Reference Range Interpretation Comments Ethanol (test code < 3 mg/dL The pharm acological = ETOH) response to blo od alcohol levels mayvary from individual to i ndividual. The fatal surinder ntrationhas been reported t o be >400mg/dL. Complete Blood Count Auto [id number] 17:33:00 Test Item Value Reference Range Interpretation [...] = NRBCP) 0 % UA, Urinalysis Rflx Cult/Ilpnt4350-54-19 17:33:00 Test Item Value Reference Range Interpretation Comments Color,Urine (test code = UCOL) Dark Yellow Yellow A Clarity,Urine (test code = Clear Clear UCLAR) Ph, Urine (test code = UPH) 6.5 5.0-9.0 N Specific [place],Urine (test 1.015 1.005-1.030 N code = USG) [...] mg/dL Negative A code = ULEU) Urine Zonarcjaggh9229-83-07 17:33:00 Test Item Value Reference Range Interpretation Comments RBC,Urine (test code = URBCUF) None Seen /HPF 0-2 WBC,Urine (test code = UWBCUF) 0-5 /HPF 0-5 Epithelial Cell,Urine (test 0-5 /HPF 0-5 code = UECUF) Casts,Urine (test code = None Seen /LPF None Seen UCASTUF) Bacteria,Urine (test code = None Seen /hpf None Seen UBACTUF) Drug Screen,[id number] 17:33:00 Test Item Value Reference Range Interpretation [...] Urine (test code = UPROP) Comprehensive Metabolic Pmvjo6956-82-00 17:33:00 Test Item Value Reference Range Interpretation [...] 46-116 N = ALP) Sars-CoV-2/FLU A/B RSV [id number] 17:31:00 Test Item Value Reference Range Interpretation [...] (test code = SARS-CoV-2 PCR Result:) Drug Screen,Nouni1959-82-62 17:20:00 Test Item Value Reference Range Interpretation [...] code = UPROP) Complete Blood Count Auto Yuij2254-65-71 17:14:00 Test Item Value Reference Range Interpretation [...] code = NRBCP) 0 % Comprehensive Metabolic Fdrqt9943-55-91 17:14:00 Test Item Value Reference Range Interpretation [...] (test code = CRCLPHA) Estimated GFR ( Iamee > 60 mL/min/1.73m2 (test code = EGFRAA) [...] 207 U/L 46-116 H = ALP) Ethanol [id number] 17:14:00 Test Item Value Reference Range Interpretation Comments Ethanol (test code = ETOH) 192 mg/dL Complete Blood Count Auto [id number] 20:20:00 Test Item Value Reference Range Interpretation [...] code = NRBCP) 0 % Comprehensive Metabolic Pvdqt7192-35-04 20:20:00 Test Item Value Reference Range Interpretation [...] 189 U/L 46-116 H = ALP) Ethanol Gknls6998-22-02 20:20:00 Test Item Value Reference Range Interpretation Comments Ethanol (test code = ETOH) 10 mg/dL Sars-CoV-2/FLU A/B RSV [id number] 20:20:00 Test Item Value Reference Range Interpretation [...] = Amplification SARS-CoV-2 PCR Result:) UA, Urinalysis Adssoqkxnwl2782-60-54 20:20:00 Test Item Value Reference Range Interpretation Comments Color,Urine (test code = Yellow Y UCOL) Clarity,Urine (test code = Clear Clear UCLAR) PH,Urine (test code = 7.0 5.5-8.5 UPH.XX) Specific [place],Urine 1.020 1.005-1.030 N (test code = USG) [...] cells/uL Negative (test code = ULEU) Drug Screen,[id number] 20:20:00 Test Item Value Reference Range Interpretation [...] code = UTHCS) CT head/brain wo con [id number] [place] [address] Patient Name: Walt Velazquez Medical Record#: [id number] Address: Homeless City/State/Zip: [place] [address]: Vinnie Navarro MD Phone: Insurance: Self Pay /Age/Sex: 1970/50/M Admit/Reg Date: 09/17/[address]: Vinnie Navarro MD Location: [facility]/ PCP: Pcp-Md KERWIN Stiles Date of Service: 09/17/21 Order (s): CT head/brain wo con CPT Code: 48918 Report Number: [id number] Reason for Exam: Altered mental status Location [...]
--- NOTE | 2022-05-07 16:08 | RAD REPORT ---
EXAM DESCRIPTION: RAD - Chest Single View - 05/07/2022 3:54 pm CLINICAL HISTORY: CHEST PAIN Chest pain. COMPARISON: Chest Single View dated 03/29/2022; Chest Single View dated 12/26/2021; Chest Single View d ated 12/21/2021; Chest Pa And Lat (2 Views) dated 05/17/2018 FINDINGS: Portable technique limits examination quality. Small triangular opacity left retrocardiac region likely represents atelectasis or small developing i nfiltrate. The lungs are otherwise clear. The heart is normal in size. No displaced fractures.
[2022-05-07] MEDS ORDERED: FAMOTIDINE 20 MG/2 ML VIAL IV ONE (18:59)
[2022-05-07 19:00] LABS: Absolute Lymphocytes (CBC) 2.4 K/uL (0.7-4.9); Hematocrit 46.5 % (39.6-49.0); Lymphocytes % 26.8 % (15.3-44.8); MCV 95.9 fL (80-100); MPV 6.8 fL (7.6-11.3); RBC Red Blood Cell Count 4.85 M/uL (4.33-5.43)
[2022-05-07] MEDS ORDERED: FOLIC ACID 1 MG, MULTIVITAMINS INJ 10 ML, THIAMINE HCL 100 MG in NA CHLORIDE 0.9% 1,000 ML IV ONE (19:00)
[2022-05-07 19:18] LABS: Protime INR 0.98
[2022-05-07 20:25] LABS: Urine Blood Negative (Negative); Urine Glucose 2+ (Negative); Urine Protein Negative (Negative); Urine pH 5.5 (5.0-7.0)
[2022-05-07 20:25] LABS: ALT/SGPT 36 U/L (12-78); AST/SGOT 24 U/L (15-37); Albumin 3.6 g/dL (3.4-5.0); Alkaline Phosphatase 168 U/L (45-117); BUN Blood Urea Nitrogen 14 mg/dL (7-18); Bicarbonate 22 mmol/L (21-32); Bilirubin Total 0.2 mg/dL (0.2-1.0); Glomerular Filtration Rate 76 ml/min (=/>90); Glucose Level 159 mg/dL (74-106); Lipase 35 U/L (73-393); NT PRO-BNP 145 pg/mL (<125); Potassium 3.6 mmol/L (3.5-5.1); Protein, Total 7.3 g/dL (6.4-8.2); Sodium Level 139 mmol/L (136-145); Troponin High Sensitivity 28.9 pg/mL (<58.9)
[2022-05-07 20:32] LABS: Bilirubin Direct < 0.1 mg/dL (0-0.2)
--- NOTE | 2022-05-07 20:53 | EDPHYS ---
Physician Documentation [facility] Name: Walt Velazquez Age: 51 yrs Sex: Male : 1970 Arrival Date: 05/07/2022 Time: 15:23 Bed 3 Private MD: ED Physician Deandre Mckeon HPI: 05/07 16:00 This 51 yrs old Male presents to ER via Ambulatory with complaints of Chest cp Pain. 16:00 The patient or guardian reports chest pain that is located primarily in the anterior cp chest wall, mid chest. 16:00 Onset: today. The pain does not radiate. Associated signs and symptoms: Pertinent cp positives: shortness of breath, Pertinent negatives: abdominal pain, cough, diaphoresis, dizziness, lower extremity pain, lower extremity swelling, near syncope, palpitations, syncope, vomiting. The chest pain is described as aching. Duration: The patient or guardian reports a single episode, that is still ongoing, but improving. The patient has experienced similar episodes in the past, multiple times. Patient admits to drinking alcohol today. Historical: - Allergies: 15:30 No Known Allergies; ll1 - PMHx: 15:30 Alcoholism; Bipolar II; Hypertensive disorder; Parkinsons; Seizure; ll1 - Immunization history:: Client reports having NOT received the Covid vaccine. - Social history:: Smoking status: Patient reports the use of cigarette tobacco products, smokes one-half pack cigarettes per day. ROS: 16:05 Constitutional: Negative for body aches, chills, fever, poor PO intake. cp 16:05 Eyes: Negative for injury, pain, redness, and discharge. cp 16:05 Cardiovascular: Positive for chest pain, Negative for edema, palpitations. 16:05 Respiratory: Negative for cough, shortness of breath, wheezing. 16:05 Abdomen/GI: Negative for abdominal pain, vomiting, diarrhea, constipation. 16:05 Back: Negative for pain at rest, pain with movement. cp 16:05 Neuro: Negative for altered mental status, dizziness, headache, numbness, syncope, weakness. 16:05 All other systems are negative. Exam: 15:40 ECG was reviewed by the Attending Physician. cp 16:10 Constitutional: The patient appears in no acute distress, alert, awake, comfortable, cp non-diaphoretic, non-toxic, well developed, well nourished. 16:10 Head/Face: Normocephalic, atraumatic. cp 16:10 Eyes: Periorbital structures: appear normal, Conjunctiva: normal, no exudate, no injection, Sclera: no appreciated abnormality, Lids and lashes: appear normal, bilaterally. 16:10 ENT: External ear(s): are unremarkable, Nose: is normal, Mouth: Lips: moist, Oral mucosa: pink and intact, moist, Posterior pharynx: Airway: no evidence of obstruction, patent. 16:10 Neck: ROM/movement: is normal, is supple, without pain, no range of motions limitations. 16:10 Chest/axilla: Inspection: normal. 16:10 Cardiovascular: Rate: 18:55 ECG was reviewed by the Attending Physician. cp 18:55 Respiratory: the patient does not display signs of respiratory distress, Respirations: cp normal, no use of accessory muscles, no retractions, labored breathing, is not present, Breath sounds: are clear throughout, no decreased breath sounds, no stridor, no wheezing. 18:55 Abdomen/GI: Inspection: abdomen appears normal, Palpation: abdomen is soft and cp non-tender, in all quadrants. 18:55 Neuro: Orientation: to person, place \T\ time. Mentation: able to follow commands, slow to respond, Motor: moves all fours, strength is normal, Sensation: no obvious gross deficits. Vital Signs: 15:27 BP 123 / 66; Pulse 107; Resp 17; Temp 98.4; Pulse Ox 99% on R/A; Pain 6/10; ll1 19:04 BP 112 / 76; Pulse 84; Resp 16; Pulse Ox 99% on R/A; jd3 20:49 BP 95 / 62; Pulse 93; Resp 12 S; Pulse Ox 100% on R/A; as6 21:50 BP 121 / 66; Pulse 92; Resp 13; Pulse Ox 99% ; Pain 0/10; jj7 MDM: 16:31 Patient medically screened. [facility] 20:53 Data reviewed: vital signs, nurses notes, lab test result(s), EKG, radiologic studies, cp plain films. 20:53 Differential diagnosis: abnormal EKG, acute myocardial infarction, chest wall pain, cp cholecystitis, Cholelithiasis costochondritis, esophagitis, gastritis, pancreatitis, pericarditis, pleurisy, pneumonia, pneumothorax. Test interpretation: by ED physician or midlevel provider: ECG, plain radiologic studies. Counseling: I had a detailed discussion with the patient and/or guardian regarding: the historical points, exam findings, and any diagnostic results supporting the discharge/admit diagnosis, lab results, radiology results, the need for outpatient follow up, a family practitioner, to return to the emergency department if symptoms worsen or persist or if there are any questions or concerns that arise at home. Response to treatment: the patient's symptoms have markedly improved after treatment, and as a result, I will discharge patient. Special discussion: Based on the patient's history, exam, and Dx evaluation, there is no indication for emergent intervention or inpatient Tx. It is understood by the patient/guardian that if the Sx's persist or worsen they need to return immediately for re-evaluation. 05/07 15:40 Order name: Basic Metabolic Panel; Complete Time: 20:47 [facility] 05/07 20:47 Interpretation: Normal except: CL 109; GLUC 159; GFR 76; CA 10.1. 05/07 15:40 Order name: CBC with Diff; Complete Time: 19:51 [facility] 05/07 19:51 Interpretation: Normal except: HGB 15.2; MPV 6.8. 05/07 15:40 Order name: LFT's; Complete Time: 20:47 [facility] 05/07 20:48 Interpretation: Normal except: ALK 168; GLOB 3.7; A/G 1.0. 05/07 15:40 Order name: Magnesium; Complete Time: 20:47 [facility] 05/07 15:40 Order name: NT PRO-BNP; Complete Time: 20:47 [facility] 05/07 20:48 Interpretation: Reviewed. 05/07 15:40 Order name: PT-INR; Complete Time: 19:51 [facility] 05/07 15:40 Order name: Troponin HS; Complete Time: 20:47 [facility] 05/07 20:48 Interpretation: Troponin HS 28.9; Reviewed. 05/07 15:40 Order name: Lipase; Complete Time: 20:47 [facility] 05/07 20:48 Interpretation: LIP 35; Reviewed. 05/07 15:40 Order name: Acetaminophen; Complete Time: 20:47 [facility] 05/07 15:40 Order name: ETOH Level; Complete Time: 19:51 [facility] 05/07 20:48 Interpretation: Reviewed. 05/07 15:40 Order name: Ptt, Activated; Complete Time: 19:51 [facility] 05/07 15:40 Order name: Salicylate; Complete Time: 20:47 [facility] 05/07 15:40 Order name: Urine Drug Screen [facility] 05/07 20:25 Order name: Urine Dipstick-Ancillary; Complete Time: 20:47 [facility] 05/07 15:33 Order name: EKG; Complete Time: 15:34 ll1 05/07 15:33 Order name: EKG - Nurse/Tech; Complete Time: 15:34 ll1 05/07 15:40 Order name: XRAY Chest (1 view); Complete Time: 18:34 [facility] 05/07 20:49 Interpretation: Report review. 05/07 15:40 Order name: Cardiac monitoring; Complete Time: 18:52 [facility] 05/07 15:40 Order name: IV Saline Lock; Complete Time: 18:52 [facility] 05/07 15:40 Order name: Labs collected and sent; Complete Time: 18:52 [facility] 05/07 15:40 Order name: O2 Per Protocol; Complete Time: 18:52 [facility] 05/07 15:40 Order name: O2 Sat Monitoring; Complete Time: 18:52 [facility] 05/07 15:40 Order name: Suicide Screening ([place]); Complete Time: 18:52 [facility] 05/07 15:40 Order name: Urine Dipstick-Ancillary (obtain specimen); Complete Time: 20:34 [facility] EC:40 Rate is 118 beats/min. Rhythm is regular. OH interval is normal. QRS interval is cp normal. T waves are Inverted in lead III. Interpreted by me. Reviewed by me. 18:55 Rate is 89 beats/min. Rhythm is regular. OH interval is normal. QRS interval is normal. cp QT interval is normal. T waves are Inverted in lead aVR. Interpreted by me. Reviewed by me. Administered Medications: 14:00 Drug: Zithromax (azithromycin) 500 mg Route: PO; jj7 19:03 Drug: Banana Bag - (NS 0.9% 1000 ml, foLIC Acid 1 mg, Thiamine 100 mg, Multivitamin 1 jd3 amp) Route: IV; Rate: 500 ml/hr; Site: left forearm; 21:37 Follow up: IV Status: Completed infusion jj7 19:03 Drug: Pepcid (famotidine) 20 mg Route: IVP; Site: left forearm; jd3 21:37 Drug: Rocephin - (cefTRIAXone) 1 grams Route: IVPB; Infused Over: 30 mins; Site: left jj7 forearm; 22:15 Follow up: IV Status: Completed infusion jj7 Disposition: 05/08 09:25 Co-signature as Attending Physician, Deandre Mckeon MD I agree with the assessment and [facility] plan of care. Disposition Summary: 05/07/22 20:53 Discharge Ordered Location: Home cp Problem: an ongoing problem cp Symptoms: have improved cp Condition: Stable cp Diagnosis - Alcohol abuse with intoxication cp - Other pneumonia, unspecified organism cp - Chest pain, unspecified cp Followup: cp - With: Private Physician - When: 1 - 2 days - Reason: Recheck today's complaints Discharge Instructions: - Discharge Summary Sheet cp - Alcohol Intoxication cp - Nonspecific Chest Pain, Adult cp - Community-Acquired Pneumonia, Adult cp - Alcohol Abuse and Nutrition cp - Aspirin and Your Heart cp Forms: - Medication Reconciliation Form cp - Thank You Letter cp - Antibiotic Education cp - Prescription Opioid Use cp Prescriptions: - Zithromax Z-[place] 250 mg Oral Tablet - take 1 tablet by ORAL route as directed for 5 days Day 1 - take two (2) tablets cp one time. Day 2, 3, 4 , 5 take one (1) tablet once daily.; 6 tablet; Refills: 0, Product Selection Permitted Signatures: Dispatcher [employer] Deandre Gonzales MD MD cha Page, Corey, PA PA cp Davies, Jonathon, RN RN jd3 Monet Masters RN RN ll1 Zhen Elaine RN RN jj7 Chiquita Noonan PA-C PA-C sb4 Corrections: (The following items were deleted from the chart) 05/07 20:47 20:47 Normal except: CL 109; GLUC 159; GFR 76. cp cp 05/08 22:01 21:59 Data reviewed: vital signs, nurses notes, lab test result(s), EKG, radiologic cp studies, plain films, cp
--- NOTE | 2022-05-07 20:53 | ER ---
Nurse's Notes [facility] Name: Walt Velazquez Age: 51 yrs Sex: Male : 1970 Arrival Date: 05/07/2022 Time: 15:23 Bed 3 Private MD: Diagnosis: Alcohol abuse with intoxication;Other pneumonia, unspecified organism;Chest pain, unspecified Presentation: 05/07 15:27 Chief complaint: Patient states: CP for 2 days, was seen earlier for the same. ll1 Coronavirus screen: Vaccine status: Patient reports being unvaccinated. Client denies travel out of the [place] in the last 14 days. At this time, the client does not indicate any symptoms associated with coronavirus-19. Ebola Screen: Patient denies travel to an Ebola-affected area in the 21 days before illness onset. Initial Sepsis Screen: Does the patient meet any 2 criteria? No. Patient's initial sepsis screen is negative. Does the patient have a suspected source of infection? No. Patient's initial sepsis screen is negative. Risk Assessment: Do you want to hurt yourself or someone else? Patient reports no desire to harm self or others. Onset of symptoms was May 06, 2022. 15:27 Method Of Arrival: Ambulatory ll1 15:27 Acuity: LATASHA 3 ll1 18:56 Risk Assessment: Do you want to hurt yourself or someone else? Patient reports no jd3 desire to harm self or others. Triage Assessment: 15:31 General: Appears uncomfortable, Behavior is cooperative, appropriate for age. Pain: ll1 Complains of pain in chest Quality of pain is described as aching. Cardiovascular: Reports chest pain. Historical: - Allergies: 15:30 No Known Allergies; ll1 - PMHx: 15:30 Alcoholism; Bipolar II; Hypertensive disorder; Parkinsons; Seizure; ll1 - Immunization history:: Client reports having NOT received the Covid vaccine. - Social history:: Smoking status: Patient reports the use of cigarette tobacco products, smokes one-half pack cigarettes per day. Screenin:55 Abuse screen: Denies threats or abuse. Nutritional screening: No deficits noted. jd3 Tuberculosis screening: No symptoms or risk factors identified. Fall Risk Fall in past 12 months (25 points). IV access (20 points). Ambulatory Aid- None/Bed Rest/Nurse Assist (0 pts). Gait- Normal/Bed Rest/Wheelchair (0 pts) Mental Status- Overestimates/Forgets Limitations (15 pts.). Total Cadena Fall Scale indicates High Risk Score (45 or more points). Fall prevention measures have been instituted. Side Rails Up X 2 Placed Close to Nursing Station Frequent Obs/Assessments Occuring As available patient and family educated on Fall Prevention Program and Strategies. Assessment: 18:52 General: Appears in no apparent distress. comfortable, unkempt, Behavior is calm, jd3 cooperative, Smells of alcohol, Reports passing out while walking down the street. Pain: Complains of pain in head Pain does not radiate. Quality of pain is described as sharp, shooting, Pain began suddenly. Neuro: Kinsey Agitation-Sedation Scale (RASS): -1 Drowsy Level of Consciousness is awake, alert, obeys commands, confused, Oriented to person, place, Speech is slurred. Cardiovascular: Capillary refill < 3 seconds Patient's skin is warm and dry. Rhythm is regular. Respiratory: Airway is patent Respiratory effort is even, unlabored, Respiratory pattern is regular, symmetrical, Denies cough, shortness of breath. GI: No signs and/or symptoms were reported involving the gastrointestinal system. : No signs and/or symptoms were reported regarding the genitourinary system. EENT: No signs and/or symptoms were reported regarding the EENT system. Derm: Skin is intact, Skin is dry, Skin is normal, Skin temperature is warm. Musculoskeletal: Circulation, motion, and sensation intact. Range of motion: intact in all extremities. Vital Signs: 15:27 BP 123 / 66; Pulse 107; Resp 17; Temp 98.4; Pulse Ox 99% on R/A; Pain 6/10; ll1 19:04 BP 112 / 76; Pulse 84; Resp 16; Pulse Ox 99% on R/A; jd3 20:49 BP 95 / 62; Pulse 93; Resp 12 S; Pulse Ox 100% on R/A; as6 21:50 BP 121 / 66; Pulse 92; Resp 13; Pulse Ox 99% ; Pain 0/10; jj7 ED Course: 15:23 Patient arrived in ED. as 15:30 Triage completed. ll1 15:31 Arm band placed on. ll1 15:44 Maintain EMS IV. Dressing intact. Good blood return noted. Site clean \T\ dry. Gauge \T\ ll 1 site: 22 L FA. 15:56 XRAY Chest (1 view) In Process Unspecified. EDMS 16:20 Deandre Sharma PA is PHCP. cp 16:20 Deandre Mckeon MD is Attending Physician. cp 18:52 Initial lab(s) drawn, by il, sent to lab. jd3 18:55 Patient has correct armband on for positive identification. Bed in low position. Call jd3 light in reach. Side rails up X2. Client placed on continuous cardiac and pulse oximetry monitoring. NIBP monitoring applied. playground monitor on. Pulse ox on. NIBP on. Warm blanket given. 18:56 Patient maintains SpO2 saturation greater than 95% on room air. jd3 20:14 Urine Drug Screen Sent. jj7 20:49 Nico Dean, RN is Primary Nurse. as6 22:15 IV discontinued, intact, bleeding controlled, No redness/swelling at site. Pressure jj7 dressing applied. 22:15 No provider procedures requiring assistance completed. jj7 Administered Medications: 14:00 Drug: Zithromax (azithromycin) 500 mg Route: PO; jj7 19:03 Drug: Banana Bag - (NS 0.9% 1000 ml, foLIC Acid 1 mg, Thiamine 100 mg, Multivitamin 1 jd3 amp) Route: IV; Rate: 500 ml/hr; Site: left forearm; 21:37 Follow up: IV Status: Completed infusion jj7 19:03 Drug: Pepcid (famotidine) 20 mg Route: IVP; Site: left forearm; jd3 21:37 Drug: Rocephin - (cefTRIAXone) 1 grams Route: IVPB; Infused Over: 30 mins; Site: left j forearm; 22:15 Follow up: IV Status: Completed infusion jj7 Medication: 18:55 VIS not applicable for this client. jd3 Outcome: 20:53 Discharge ordered by . cp 22:15 Discharged to home ambulatory. jj7 22:15 Condition: improved 22:15 Discharge instructions given to patient, Instructed on discharge instructions, medication usage, Demonstrated understanding of instructions, medications, Prescriptions given X 1. 22:27 Patient left the ED. jj7 Signatures: Dispatcher [employer] EDWI Shanta Mortensen as Deandre Sharma PA PA cp Davies, Jonathon, RN RN jd3 Monet Masters RN RN ll1 Nico Dean, RN RN as6 Zhen Elaine RN RN jj7
[2022-05-07] MEDS ORDERED: NA CHLORIDE 0.9% 50 ML IV ONE (21:05)
[2022-05-07] MEDS ORDERED: CEFTRIAXONE 1000 MG/VIAL ONE (21:05)
[2022-05-07] MEDS ORDERED: AZITHROMYCIN 250 MG TAB ONE (21:05)
[2022-05-07 21:07] LABS: Barbiturates NEGATIVE (NEGATIVE); Benzodiazepines NEGATIVE (NEGATIVE); Cocaine NEGATIVE (NEGATIVE); METHAMPHETAM NEGATIVE (NEGATIVE); Methadone NEGATIVE (NEGATIVE); Opiates NEGATIVE (NEGATIVE); Phencyclidine NEGATIVE (NEGATIVE); THC Cannibis NEGATIVE (NEGATIVE)
[2022-05-07 22:32] VITALS: TEMP 98.4
[2022-05-07 22:35] VITALS: BP 121/66; O2SAT 99
--- NOTE | 2022-05-10 19:20 | EKG ---
Test Date: 2022-05-07 Test Time: 18:50:22 [employer]dnance [employer]ificer: DAVE MEASUREMENT RESULTS: Intervals: Rate: 89 OK: 176 QRSD: 68 QT: 352 QTc: 428 [place]: P: 67 OK: 176 QRS: 68 T: 27 INTERPRETIVE STATEMENTS: Normal sinus rhythm Normal ECG Compared to ECG 05/07/2022 15:35:26 Sinus tachycardia no longer present Fusion complex(es) no longer present Myocardial infarct finding no longer present Electronically Signed On 05-10-22 19:11:17 [employer] DRILLER HELPER by Asim Thompson
--- NOTE | 2022-05-10 19:20 | EKG ---
Test Date: 2022-05-07 Test Time: 15:35:26 Chef [place] Froid: LML MEASUREMENT RESULTS: Intervals: Rate: 118 DE: 156 QRSD: 70 QT: 420 QTc: 588 [place]: P: 35 DE: 156 QRS: 41 T: 8 INTERPRETIVE STATEMENTS: Sinus tachycardia with fusion complexes Cannot rule out Inferior infarct, age undetermined Abnormal ECG Compared to ECG 12/26/2021 13:09:10 Fusion complex(es) now present Myocardial infarct finding now present Sinus rhythm no longer present Electronically Signed On 05-10-22 19:11:20 AREA RELIEF PILOT by Asim Thompson
== END 2022-05-07 22:27 | disposition home or self-care (01) ==
LOC: ER 15:17
DX: J18.8 Other pneumonia, unspecified organism (principal); F10.229 Alcohol dependence with intoxication, unspecified; F17.210 Nicotine dependence, cigarettes, uncomplicated
CPT/HCPCS: 36415; 71045; 80048; 80076; 80307; 80320; 80329; 81003; 83690; 83735; 83880; 84484; 85025; 85610; 85730; 93005; 96365; 96366; 96367; 96375; 99285; J3411; J7030; Q0144

== ENCOUNTER 2022-06-13 02:47 | Emergency (ER) | payer SELFPAY ==
--- OUTSIDE RECORDS SUMMARY | 2022-06-13 02:53 | XMS REPORT | Continuity of Care Document ---
:1970 Author Organization [facility] t Address [address] [place] [address] Care Team Providers Name Role Phone Pcp-None [...] Number Effective Date Expiration Date Rhoda xiong [facility] [address] 2021 [facility] 00:00:00 Problems Condition Condition Condition Status Onset [...] ity of adverse 00:00: [place] reaction [facility] TRAZODON DRUG Active Other-Cmnt Univ ers E INGREDI 4-17 ity of 00:00: [place] 00 Medical Branch Social History Social Habit Start Date Stop Date Quantity Comments Source History of Smokes tobacco University of tobacco use daily [facility] Branch Exposure to 2022-03-27 2022-04-06 Unable to assess Univers ity of SARS-CoV-2 00:00:00 09:36:00 [facility] (event) Branch Alcohol intake 2022-01-19 2022-01-19 Current drinker Unive rsity of 00:00:00 00:00:00 of alcohol [facility] (finding) Branch Tobacco use and 2021-12-28 2021-12-28 Smokeless tobacco Un iversity of exposure 00:00:00 00:00:00 non-user [facility] Tobacco Comment 2021-12-28 2021-12-28 1/2 a pack a day Uni versity of 00:00:00 00:00:00 [facility] Sex [birth year] Universit y of 00:00:00 00:00:00 [facility] Smoking Status Start Date Stop Date Source Smokes tobacco daily 2021-12-28 00:00:00 Univers ity of [facility] Medications Ordered Filled Start Stop [...] 4mg 4 mg, Slow Univers (ZOFRAN 0-16 -16 IV Push, ity of (PF)) 15:45: 14:50 ONCE, 1 [place] injection 4 00 :00 dose, On Medi yudy mg [place] 04/06/22 at 1045, JACIEL oxazepam 2021- No 15mg 15 mg, Univer s (SERAX) 12-31 07-13 Oral, Q12H ity o f capsule 15 06:28: 06:29 [place] 2 [place] 17 :00 doses, Medical First dose Branch on Thu12/31/21 at 0130, Last dose on Thu12/31/21 at 1330, Routine multivitami Yes [id number] 1{tbl} Take 1 Univers n tablet 12-31 [id number] tablet by ity of 00:00: mouth in [place] 00 the Medical morning. Branch thiamine Yes [id number] 100mg Take 1 Univers 100 mg 12-31 [id number] tablet by ity of tablet 00:00: mouth in [place] 00 the Medical morning. Branch aspirin 81 Yes [id number] 81mg Take 1 Univers mg chewable 12-31 [id number] tablet by i ty of tablet 00:00: mouth in [place] 00 the Medical morning. Branch multivitami 2021-0 Yes [id number] 1{tbl} Take 1 Univers n tablet 7-12 [id number] tablet by ity of 00:00: mouth in [place] the Medical morning. Branch thiamine 2021-0 Yes [id number] 100mg Take 1 Univers 100 mg 7-12 [id number] tablet by ity of tablet 00:00: mouth in [place] the Medical morning. Branch aspirin 81 2021-0 Yes [id number] 81mg Take 1 Univers mg chewable 7-12 [id number] tablet by i ty of tablet 00:00: mouth in [place] the Medical morning. Branch multivitami 2021-0 Yes [id number] 1{tbl} Take 1 Univers n tablet 7-12 [id number] tablet by ity of 00:00: mouth in [place] the Medical morning. Branch thiamine 2021-0 Yes [id number] 100mg Take 1 Univers 100 mg 7-12 [id number] tablet by ity of tablet 00:00: mouth in [place] the Medical morning. Branch aspirin 81 2021-0 Yes [id number] 81mg Take 1 Univers mg chewable 7- 729270 tablet by i ty of tablet 00:00: mouth in [place] the Medical morning. Branch multivitami 0 Yes [id number] 1{tbl} Take 1 Univers n tablet 7-12 [id number] tablet by ity of 00:00: mouth in [place] the Medical morning. Branch thiamine 2021-0 Yes [id number] 100mg Take 1 Univers 100 mg 7-12 [id number] tablet by ity of tablet 00:00: mouth in [place] the Medical morning. Branch aspirin 81 2021-0 Yes [id number] 81mg Take 1 Univers mg chewable 7-12 [id number] tablet by i ty of tablet 00:00: mouth in [place] the Medical morning. Branch foLIC acid 2021- No [id number] 1mg Take 1 Univers 1 mg tablet 12-31 [id number] tablet by ity of 00:00: 04:59 mouth in [place] 00 :00 the Medical morning Branch for 30 days. foLIC acid 2021-0 2021- No [id number] 1mg Take 1 Univers 1 mg tablet 12-31 [id number] tablet by ity of 00:00: 04:59 mouth in [place] 00 :00 the Medical morning Branch for 30 days. foLIC acid 2021- No [id number] 1mg Take 1 Univers 1 mg tablet 12-31 [id number] tablet by ity of 00:00: 04:59 mouth in [place] 00 :00 [facility] for 30 days. metFORMIN Yes [id number] 500mg Take 1 Univers 500 mg 7- 352175 tablet by ity of tablet 00:00: mouth in [address] and 1 tablet in the evening. Take with meals. metFORMIN Yes [id number] 500mg Take 1 Univers 500 mg 7-11 [id number] tablet by ity of tablet 00:00: mouth in [address] and 1 tablet in the evening. Take with meals. metFORMIN Yes [id number] 500mg Take 1 Univers 500 mg 7-11 [id number] tablet by ity of tablet 00:00: mouth in [address] and 1 tablet in the evening. Take with meals. metFORMIN Yes [id number] 500mg Take 1 Univers 500 mg 7-11 [id number] tablet by ity of tablet 00:00: mouth in [address] and 1 tablet in the evening. Take with meals. aspirin Yes 81mg 81 mg, Univers chewable 7-10 Oral, ity of tablet 81 14:00: DAILY, [place] mg 00 First dose Medical on [facility] 12/29/21 at 0900, Until Discontinu ed, Routine sulfur 2021- No [id number] 5mL 5 mL, Unive rs hexafluorid 12-29 07-10 Intravenou i ty of e microsphr 13:45: 13:45 s, ONCE, 1 [place] (LUMASON) 00 :00 dose, On Medica l injection 5 [facility] mL 12/29/21 at 0845, Routine
nutrition faculty member approving Restricted medication : STEFANIE GORMAN enoxaparin Yes 40mg 40 mg, Unive rs (LOVENOX) 7-10 Subcutaneo ity of injection 13:00: us, Q24H, [place] 40 mg 00 First dose Medical on [facility] 12/29/21 at 0800, Until Discontinu ed, Routine Sliding Yes Subcutaneo Univ ers Scale 7-10 us, TID ity of Insulin - 13:00: MEALS+HS, [place] Lispro 00 First dose Medical (HumaLOG) + on [facility]sbg 12/29/21 at Testing 0800, Until Discontinu ed, Routine diazePAM 2021-0 2022- No 10mg 10 mg, Univer s (VALIUM) 7-10 07-10 Intravenou ity of injection 05:30: 04:40 s, ONCE, 1 [place] 10 mg 00 :00 dose, On Medical [facility] 12/29/21 at 0030, Routine diazePAM 2021-0 202- No 10mg 10 mg, Univer s (VALIUM) 7-10 07-10 Intravenou ity of injection 04:15: 03:17 s, ONCE, 1 [place] 10 mg 00 :00 dose, On Medical [facility] 12/28/21 Branch at 2315, Routine diazePAM 2021-0 Yes 5mg 5 mg, Univers (VALIUM) 7-10 Intravenou ity o f injection 5 03:45: s, QIDPRN, [place] mg 01 Starting Medical on [facility] 12/28/21 at 2245, Until Discontinu ed, Routine, Seizures, Agitation foLIC acid 2021-0 Yes 1mg 1 mg, Univer s (FOLATE) 7-10 Oral, ity of tablet 1 mg 03:45: DAILY, [place] 00 First dose Medical on [facility] 12/28/21 at 2245, Until Discontinu ed, Routine thiamine 2021-0 Yes 100mg 100 mg, Unive rs (VITAMIN 7-10 Oral, ity of B1) tablet 03:45: DAILY, [place] 100 mg 00 First dose Medical (after Branch last modificati on) on [facility] 12/28/21 at 2245, Until Discontinu ed, Routine glucagon 2021-0 Yes 1mg 1 mg, Univers (GLUCAGEN 7-10 Intramuscu ity of DIAGNOSTIC 03:42: [place], PRN, [place]) 19 Starting Medical injection 1 on [facility] 12/28/21 at 2242, Until Discontinu ed, [...] or has mental status changes, Starting on [facility] 12/28/21 at 2242
If blood [...] glucose is < 80 mg/dL, repeat.
LORazepam 0 202- No 1mg 1 mg, Univer s (ATIVAN) 7-10 07-10 Intravenou ity of injection 1 03:30: 02:32 s, ONCE, 1 [place] mg 00 :00 dose, On Medical [facility] 12/28/21 Branch at 2230, Routine
Is the medication being used for status epilepticu s? No oxazepam 0 Yes 15mg 15 mg, Univers (SERAX) 7-10 Oral, ity of capsule 15 00:28: Q4HPRN, [place] mg 20 Starting Medical on [facility] Branch 12/28/21 at 1928, Until Discontinu ed, Routine, Only while awake for DBP equal to or greater than 100, HR equal to or greater than 100. ondansetron 0 Yes 4mg 4 mg, Slow Univers (ZOFRAN 7-10 IV Push, ity of (PF)) 00:23: Q6HPRN, [place] injection 4 47 Starting Medi yudy mg on [facility] Branch 12/28/21 at 1923, Until Discontinu ed, Routine, Nausea and Vomiting (N/V) acetaminoph 0 Yes 650mg 650 mg, Un lorena en 7-10 Oral, ity of (TYLENOL) 00:23: Q6HPRN, [place] tablet 650 37 Starting Medic al mg on [facility] Branch 12/28/21 at 1923, Until [...] 16:00:00 125 mm[Hg] Univer sity of pressure [place] [facility] Diastolic blood 2022-04-06 16:00:00 75 mm[Hg] Unive rsity of pressure [place] [facility] Heart rate 2022-04-06 16:00:00 87 /min Universi ty of [place] [facility] Respiratory rate 2022-04-06 16:00:00 22 /min Univ ersity of [place] [facility] Oxygen saturation in 2022-04-06 16:00:00 98 /min University of Arterial blood by [facility] Pulse oximetry Branch Body temperature 2022-04-06 14:41:00 37 Theresa Univ ersity of [place] [facility] Body height 2022-04-06 14:41:00 160 cm Universi ty of [place] [facility] Body weight 2022-04-06 14:41:00 63.504 kg Universi ty of [place] [facility] BMI 2022-04-06 14:41:00 24.80 kg/m2 Universi ty of [place] [facility] Systolic blood 2022-01-20 02:27:00 121 mm[Hg] Univer sity of pressure [place] [facility] Diastolic blood 2022-01-20 02:27:00 75 mm[Hg] Unive rsity of pressure [place] [facility] Heart rate 2022-01-20 02:27:00 79 /min Universi ty of [place] [facility] Respiratory rate 2022-01-20 02:27:00 12 /min Univ ersity of [place] [facility] Oxygen saturation in 2022-01-20 02:27:00 98 /min University of Arterial blood by [facility] Pulse oximetry Branch Body temperature 2022-01-19 22:19:00 36.44 Theresa Univ ersity of [place] [facility] Body weight 2022-01-19 22:19:00 60.328 kg Universi ty of [place] [facility] BMI 2022-01-19 22:19:00 23.56 kg/m2 Universi ty of [place] [facility] Systolic blood 2021-12-30 20:52:00 134 mm[Hg] Univer sity of pressure [place] [facility] Diastolic blood 2021-12-30 20:52:00 76 mm[Hg] Unive rsity of pressure [place] [facility] Heart rate 2021-12-30 20:52:00 67 /min Universi ty of [place] [facility] Body temperature 2021-12-30 20:26:00 36.67 Theresa Univ ersity of [place] [facility] Oxygen saturation in 2021-12-30 20:26:00 99 /min University of Arterial blood by [facility] Pulse oximetry [place] Respiratory rate 2021-12-30 16:21:00 18 /min [facility] Body weight 2021-12-30 08:27:00 60.464 kg [facility] BMI 2021-12-30 08:27:00 23.61 kg/m2 [facility] Body height 2021-12-29 01:29:00 160 cm [facility] Procedures Procedure Date / Time Performing Clinician Source Performed XR CHEST 1 VW 2022-04-06 14:51:50 Diya Chowdhury [facility] LIPASE 2022-04-06 14:42:00 Luciana [facility] TROPONIN I 2022-04-06 14:42:00 Diya Chowdhury [facility] COMP. METABOLIC PANEL 2022-04-06 14:42:00 Diya Chowdhury [facility] ([id number] CBC WITH DIFF 2022-04-06 14:42:00 Diya Chowdhury [facility] PROTHROMBIN TIME / INR 2022-04-06 14:42:00 [facility] 2022-04-06 14:42:00 Diya Chowdhury [facility] LACTIC ACID WHOLE BLOOD 2022-01-20 00:22:00 Leticia Hameed [facility] URINE DRUG (IMMUNOASSAY) 2022-01-19 23:10:00 Leticia Hameed [facility] SCREEN URINALYSIS 2022-01-19 23:10:00 Leticia Hameed [facility] TROPONIN I 2022-01-19 23:00:00 Leticia Hameed [facility] COMP. METABOLIC PANEL 2022-01-19 23:00:00 Leticia Hameed [facility] ([id number] LITHIUM 2022-01-19 23:00:00 Leticia Hameed [facility] ETHANOL 2022-01-19 23:00:00 Leticia Hameed [facility] CBC WITH DIFF 2022-01-19 23:00:00 Leticia Hameed [facility] COVID-19 (ID NOW RAPID 2022-01-19 23:00:00 Leticia Hameed [facility] TESTING) Medical Branch CT HEAD WO CONTRAST 2022-01-19 22:49:00 Leticia Hameed [facility] XR CHEST 1 VW 2022-01-19 22:41:00 Leticia Hameed [facility] POCT GLUCOSE (AUTOMATED) 2022-01-19 22:25:[address] [facility] POCT GLUCOSE (AUTOMATED) 2021-12-30 21:55:00 Jessica Prado [facility] POCT GLUCOSE (AUTOMATED) 2021-12-30 16:21:00 Jessica Prado [facility] POCT GLUCOSE (AUTOMATED) 2021-12-30 12:30:00 Jessica Prado [facility] HEPATIC FUNCTION PANEL 2021-12-30 09:28:00 Maira Gaitan [facility] ([id number]) (ALB,T.PRO,[facility] T,BU/BC,ALT,AST,ALK PHOS) POCT GLUCOSE (AUTOMATED) 2021-12-30 02:11:00 Jesisca Prado [facility] POCT GLUCOSE (AUTOMATED) 2021-12-29 21:41:00 Jessica Prado [facility] POCT GLUCOSE (AUTOMATED) 2021-12-29 16:37:00 Jessica Prado [facility] TRANSTHORACIC ECHO (TTE) 2021-12-29 13:05:00 Jessica Prado [facility] W/ CONTRAST Medical [facility] POCT GLUCOSE (AUTOMATED) 2021-12-29 12:41:00 Jessica Prado [facility] TROPONIN I 2021-12-29 09:42:00 Jessica Prado [facility] TROPONIN I 2021-12-29 04:55:00 Eve Jessica [facility] CT HEAD WO CONTRAST 2021-12-28 21:18:22 Pia Renteria [facility] AMMONIA, PLASMA 2021-12-28 21:00:00 Pia Renteria [facility] COVID-19 (ID NOW RAPID 2021-12-28 20:42:[address] [facility] TESTING) Medical Branch LAB ONLY COVID 2021-12-28 20:42:[address] [facility] INTERPRETATION [facility] URINE DRUG (IMMUNOASSAY) 2021-12-28 20:42:00 Pia Renteria [facility] SCREEN W/O REFLEX URINALYSIS 2021-12-28 20:40:00 [facility] N-TERMINAL PRO-BNP 2021-12-28 20:40:00 Pia Renteria [facility] TROPONIN I 2021-12-28 20:40:00 [facility] THYROID STIMULATING 2021-12-28 20:40:00 Eve Jessica [facility] HORMONE [facility] COMP. METABOLIC PANEL 2021-12-28 20:40:00 Pia Renteria [facility] ([id number]) [facility] LIPID PANEL ([id number])(TOTAL 2021-12-28 20:40:00 Demetrius Langford [facility] TRIGLY[facility], HDL) ETHANOL 2021-12-28 20:40:00 Demetrius Langford [facility] CBC WITH DIFF 2021-12-28 20:40:00 [facility] GLYCOSYLATED HEMOGLOBIN 2021-12-28 20:40:00 Eve [facility] (A1C) [facility] PROTHROMBIN TIME / INR 2021-12-28 20:40:00 Dexter Pia [facility] XR CHEST 1 VW 2021-12-28 20:16:00 [facility] HB ECG ROUTINE & RHYTHM 2021-12-28 20:04:59 Pia Renteria [facility] Encounters Start End Encounter Admission Attending Care Care Encounter Source Date/Time Date/Time Type Type Clinicians Facility Department ID 2021-09-17 Inpatient [facility] [id number] [facility] 16:45:00 35 2020-06-06 Inpatient [facility] [id number] [facility] 16:07:00 05 2020-06-06 Inpatient [facility] [id number] [facility] 06:20:00 77 2020-06-05 Inpatient [facility] [id number] [facility] 19:35:00 25 2020-05-23 Inpatient [facility] [id number] [facility] 19:53:00 39 2020-05-23 Inpatient [facility] [id number] [facility] 19:53:00 39 2022-04-06 2022-04-06 Emergency X LUCIANA [facility] ERT [id number] Univers 09:38:00 11:42:00 DIYA rahman [facility] 2022-04-06 2022-04-06 Emergency Luciana [facility] [id number] Univers 09:38:00 11:42:00 Diya OTTO [id number] i Mila 4.2.7.2.686 [facility] [id number] [address] 2022-03-07 2022-03-07 Emergency [facility] [id number] [facility] 12:38:00 12:38:00 74 2022-03-07 2022-03-07 Emergency Emergency Fidel Cuellar [facility] [id number] [facility] 12:38:00 12:38:00 74 2022-01-19 2022-01-19 Emergency X NNEKA INYULIA ERT [id number] Univers 17:18:00 22:00:00 DIRK rahman [facility] 2022-01-19 2022-01-19 Emergency Leticia Hameed [facility] 1.2.840. 114 [id number] Univers 17:18:00 22:00:00 Dirk Yarbrough [id number] Sweta 4.2.7.2.686 [facility] [id number] [facility] 084 Branch 2021-12-31 2021-12-31 Transition EDMUNDO Portillo [id number] Univers 00:00:00 00:00:00 of Care Faye RANKIN [id number] ity of RAMON 4.2.7.2.686 [facility] [id number] [facility] 403 Branch 2021-12-28 2021-12-30 [id number] Univers 14:53:00 17:42:00 JESSICA ity of [facility] 2021-12-28 2021-12-30 Hospital Pia Renteria [facility] 1.2.840. 114 [id number] Univers 14:53:00 17:42:00 Encounter Jessica Prado [id number] ity of [facility] 4.2.7.2.686 [facility] [id number] [facility] 081 Branch 2021-09-17 2021-09-17 Emergency [facility] [id number] [facility] 16:47:00 16:47:00 35 2020-06-06 2020-06-06 Emergency [facility] [id number] [facility] 16:07:00 16:07:00 05 Results Test Description Test Time Test Comments Results Result Comments Source TROPONIN I 2022-04-06 15:15:32 Test Item Value Reference Range Interpretation Comme nts TROPONIN I (test code = 0.007 ng/mL See_Comment [Au tomated message] The 0445674266) system which ge nerated this result tra [...] biotin. Lab Interpretation Normal (test code = 59084-0) [facility] 15:08:29 Test Item Value Reference Range Interpretation Comments APTT Patient (test See_Comment [Automat ed code = 3173-2) message] The system which generated this result transmitted reference range : 23 - 38 Seconds . The reference range was not used to interpr et this result as normal/abnormal . JUAN ALBERTO (test code = JUAN ALBERTO) The [facility] patient population mean normal value for aPTT is 30 seconds. Lab Interpretation Normal (test code = 80401-3) [facility] / [id number] 15:06:28 Test Item Value Reference Range Interpretation [...] tions. Lab Interpretation (test Normal code = 57020-1) [facility] ([id number])2022-04-06 15:03:31 Test Item Value Reference Range Interpretation Comments NA (test code = 136 mmol/L 135-145 4234521136) K (test code = 5.0 mmol/L 3.5-5 3033991359) CL (test code = 104 mmol/L 98-108 8662559886) CO2 TOTAL (test code = 21 mmol/L 23-31 L 5554700367) AGAP (test code = 2-16 4976146912) BUN (test code = 11 mg/dL 7-23 3723725694) GLUCOSE (test code = 162 mg/dL 70-110 H 8997376340) CREATININE (test code = 0.52 mg/dL 0.6-1.25 L 2503733443) TOTAL BILI (test code = 1.0 mg/dL 0.1-1.7 6795232668) CALCIUM (test code = 9.3 mg/dL 8.6-10.6 5387797604) T PROTEIN (test code = 7.4 g/dL 6.3-8.2 3439064998) ALBUMIN (test code = 4.4 g/dL 3.5-5 9196407649) ALK PHOS (test code = 134 U/L 34-122 H 6479715341) ALTv (test code = 17 U/L 5-50 1742-6) AST(SGOT) (test code = 38 U/L 13-40 3977190247) eGFR (test code = mL/min/1.73m2 6397837191) JUAN ALBERTO (test code = JUAN ALBERTO) [...] tests). Lab Interpretation Abnormal (test code = 50940-5) [facility], [id number] 15:03:31 Test Item Value Reference Range Interpretation Comments LIPASE (test code = 3011000572) 29 U/L 0-220 Lab Interpretation (test code = Normal 45218-3) [facility] WITH [id number] 14:51:49 Test Item Value Reference Range Interpretation Comments WBC (test code = See_Comment [Automated 2190-2) message] The sy stem which generated this [...] RDW-SD (test code = 45.9 fL 38.5-51.6 70874-7) RDW-CV (test code = 13.3 % 12.1-15.4 788-0) PLT (test code = See_Comment [Automated 777-3) message] The sy stem which generated this result transmitted reference range : 150 - 328 10*3/ ?L. The reference r elba was not used to interpret this result as normal/abnormal . MPV (test code = 8.4 fL 9.8-13 L 26943-6) NRBC/100 WBC (test See_Comment [Automat ed code = 9459422556) message] The system which generated this result transmitted reference range : 0.0 - 10.0 /100 WBCs. The refer ence range was not u sed to interpret th is result as normal/abnormal . NRBC x10^3 (test code See_Comment [Auto mated = 4239222017) message] The s ystem which generated this result transmitted reference range : 10*3/?L. The reference range was not used to interpret this result as normal/abnormal . GRAN MAT (NEUT) % 63.0 % (test code = 770-8) IMM GRAN % (test code 0.50 % = 4860823026) LYMPH % (test code = 25.2 % 736-9) MONO % (test code = 9.8 % 5905-5) EOS % (test code = 0.3 % 713-8) BASO % (test code = 1.2 % 706-2) GRAN MAT x10^3(ANC) 3.73 10*3/uL 1.99-6.95 (test code = 2775315506) IMM GRAN x10^3 (test 0.03 10*3/uL 0-0.06 code = 9510512981) LYMPH x10^3 (test code 1.49 10*3/uL 1.09-3.23 = 731-0) MONO x10^3 (test code 0.58 10*3/uL 0.36-1.02 = 742-7) EOS x10^3 (test code = 0.06-0.53 L 711-2) BASO x10^3 (test code 0.07 10*3/uL 0.01-0.09 = 704-7) Lab Interpretation Abnormal (test code = 67731-8) [facility], Urinalysis Rflx Cult/[id number] 13:53:00 Test Item Value Reference Range Interpretation Comments Color,Urine (test code = UCOL) Yellow Yellow Clarity,Urine (test code = Cloudy Clear A UCLAR) Ph, Urine (test code = UPH) 7.5 5.0-9.0 N Specific [place],Urine (test 1.025 1.005-1.030 N code = USG) [...] mg/dL Negative code = ULEU) UF REFLEXDrug Screen,[id number] 13:53:00 Test Item Value Reference Range Interpretation [...] code = UPROP) Complete Blood Count Auto [id number] 12:58:00 Test Item Value Reference Range Interpretation [...] = NRBCP) 0 % Coronavirus PCR, COVID19 [id number] 12:58:00 Test Item Value Reference Range Interpretation Comments Coronavirus PCR, COVID19 Rapid (test code = SARSCOV2) Coronavirus PCR, COVID19 Reference Range: Rapid (test code = Negative WBGEKKF07.1) SARS-CoV-2 PCR Result: Negative by RT-PCR (test code = SARS-CoV-2 PCR Result:) COVID-19 Status: AsymptomaticComprehensive Metabolic [id number] 12:58:00 Test Item Value Reference Range Interpretation [...] 144 U/L 46-116 H = ALP) Ethanol [id number] 12:58:00 Test Item Value Reference Range Interpretation Comments Ethanol (test code < 3 mg/dL The pharm acological = ETOH) response to blo od alcohol levels mayvary from individual to i ndividual. The fatal surinder ntrationhas been reported t o be >400mg/dL. [id number] 01:47:56 Test Item Value Reference Range Interpretation Comments [place] (test code = 0.7 mmol/L 0.6-1.2 4854531148) JUAN ALBERTO (test code = JUAN ALBERTO) Toxic Range: ? Greater than 1.2 mmol/L Lab Interpretation (test Normal code = 00404-0) [facility] [id number] 00:26:53 Test Item Value Reference Interpretation Comments Range TROPONIN I (test 0.002 ng/mL See_Comment [Automated code = 7713168113) message] The system which generated this result [...] biotin. Lab Interpretation Normal (test code = 42402-9) [facility]OL[facility]22[facility] 00:18:52 ALCOHOL<10mg/dL01/19/2022 7:18 PM CDMT. [facility]<10 [id number] Toxic>100 Depression of YARD HAND>400 [facility] METABOLIC PANEL (11659) 2022-01-20 00:16:16 Test Item Value Reference Range Interpretation Comments NA (test code = 137 mmol/L 135-145 3408488554) K (test code = 4.5 mmol/L 3.5-5 3609093811) CL (test code = 103 mmol/L 98-108 6026913401) CO2 TOTAL (test code = 26 mmol/L 23-31 7500667868) AGAP (test code = 2-16 4670848981) BUN (test code = 10 mg/dL 7-23 4165593669) GLUCOSE (test code = 121 mg/dL 70-110 H 3982229622) CREATININE (test code = 0.65 mg/dL 0.6-1.25 6768087493) TOTAL BILI (test code = 0.8 mg/dL 0.1-1.2 2225686442) CALCIUM (test code = 11.4 mg/dL 8.6-10.6 H 5449324180) T PROTEIN (test code = 7.2 g/dL 6.3-8.2 6925469088) ALBUMIN (test code = 4.6 g/dL 3.5-5 8524760149) ALK PHOS (test code = 112 U/L 34-122 5980845570) ALTv (test code = 19 U/L 5-50 1742-6) AST(SGOT) (test code = 26 U/L 13-40 8323554563) eGFR (test code = mL/min/1.73m2 5884021796) JUAN ALBERTO (test code = JUAN ALBERTO) [...] tests). Lab Interpretation Abnormal (test code = 10328-1) [facility] WITH [id number] 23:43:54 Test Item Value Reference Range Interpretation [...] RDW-SD (test code = 44.0 fL 38.5-51.6 15509-3) RDW-CV (test code = 12.6 % 12.1-15.4 788-0) PLT (test code = See_Comment [Automated 777-3) message] The sy stem which generated this result transmitted reference range : 150 - 328 10*3/ ?L. The reference r elba was not used to interpret this result as normal/abnormal . MPV (test code = 9.1 fL 9.8-13 L 26929-3) NRBC/100 WBC (test See_Comment [Automat ed code = 5585775008) message] The system which generated this result transmitted reference range : 0.0 - 10.0 /100 WBCs. The refer ence range was not u sed to interpret th is result as normal/abnormal . NRBC x10^3 (test code See_Comment [Auto mated = 4659544364) message] The s ystem which generated this result transmitted reference range : 10*3/?L. The reference range was not used to interpret this result as normal/abnormal . GRAN MAT (NEUT) % 69.8 % (test code = 770-8) IMM GRAN % (test code 0.40 % = 3370798655) LYMPH % (test code = 18.0 % 736-9) MONO % (test code = 10.9 % 5905-5) EOS % (test code = 0.1 % 713-8) BASO % (test code = 0.8 % 706-2) GRAN MAT x10^3(ANC) 5.58 10*3/uL 1.99-6.95 (test code = 3981926760) IMM GRAN x10^3 (test 0.03 10*3/uL 0-0.06 code = 2695395967) LYMPH x10^3 (test code 1.44 10*3/uL 1.09-3.23 = 731-0) MONO x10^3 (test code 0.87 10*3/uL 0.36-1.02 = 742-7) EOS x10^3 (test code = 0.06-0.53 L 711-2) BASO x10^3 (test code 0.06 10*3/uL 0.01-0.09 = 704-7) Lab Interpretation Abnormal (test code = 59765-9) [facility] GLUCOSE (AUTOMATED)2022-01-19 22:27:41 Test Item Value Reference Range Interpretation Comments POCT GLU (test code = 0752051619) 123 mg/dL 70-110 H Lab Interpretation (test code = Abnormal 78871-7) [facility] GLUCOSE (AUTOMATED)2021-12-30 22:08:16 Test Item Value Reference Range Interpretation Comments POCT GLU (test code = 7142098762) 167 mg/dL 70-110 H Lab Interpretation (test code = Abnormal 85659-4) [facility] GLUCOSE (AUTOMATED)2021-12-30 16:50:40 Test Item Value Reference Range Interpretation Comments POCT GLU (test code = 9198372604) 154 mg/dL 70-110 H Lab Interpretation (test code = Abnormal 12220-9) [facility] GLUCOSE (AUTOMATED)2021-12-30 12:38:43 Test Item Value Reference Range Interpretation Comments POCT GLU (test code = 8086258329) 164 mg/dL 70-110 H Lab Interpretation (test code = Abnormal 99688-0) [facility] GLUCOSE (AUTOMATED)2021-12-30 02:14:58 Test Item Value Reference Range Interpretation Comments POCT GLU (test code = 4199974358) 220 mg/dL 70-110 H Lab Interpretation (test code = Abnormal 29419-9) [facility] GLUCOSE (AUTOMATED)2021-12-29 21:50:02 Test Item Value Reference Range Interpretation Comments POCT GLU (test code = 5682951057) 191 mg/dL 70-110 H Lab Interpretation (test code = Abnormal 99649-4) [facility] GLUCOSE (AUTOMATED)2021-12-29 20:15:01 Test Item Value Reference Range Interpretation Comments POCT GLU (test code = 6168570041) 163 mg/dL 70-110 H Lab Interpretation (test code = Abnormal 07737-9) [facility] 19:12:22 Test Item Value Reference Range Interpretation Comments Height (test code = in 4169782771) Weight (test code = lbs 1429613767) Systolic BP (test code = mmHg 5484556294) Diastolic BP (test code mmHg = 8471117536) Heart Rate (test code = bpm 7385779171) BSA (test code = 1.62 m2 9917902597) Ao root annulus (test 2.45 cm code = 6412929250) Ao root diam (test code 2.45 cm = 1774182988) Aortic root (test code = 2.45 cm 2123440697) ACS (test code = 1.66 cm 9330067090) LA size (test code = 3.2 cm 2560738160) LVOT diameter (test code 1.95 cm = 7117517935) LVIDD (test code = 3.60 cm 5278273645) IVS (test code = 0.94 cm 0208296027) Interventricular Septum 0.94 cm Diastolic Thickness by 2D (test code = 5088512) LVPWD (test code = 0.80 cm 3165800136) PW (test code = 0.80 cm 0.6-1.5 9629391514) EF(Teich) (test code = 52.80 % 4884483296) LVIDS (test code = 2.60 cm 4361777328) FS (test code = 27 % 5202625728) EF - 2D (test code = 52.80 % 11170509) LAV(MOD-sp4) (test code 16.80 mL = 8504466660) MV Peak E Jovany (test code 46.1 cm/s = 1318607778) E wave decelartion time 0.31 s (test code = 1524359196) MV Peak A Jovany (test code 58.1 cm/s = 4793867702) E/A ratio (test code = ratio 0320965465) MV E/e' septal (test 5.7 cm/s code = 0630139206) Tapse (test code = 1.60 cm 9912659351) LVOT stroke volume (test 52.10 cm3 code = 8243371316) LVOT peak jovany (test code 110.6 cm/s = 4775025333) LVOT mn grad (test code mmHg = 7827135566) AV LVOT peak gradient mmHg (test code = 6124515108) LVOT peak VTI (test code 17.4 cm = 2785833182) LV V1 mean (test code = 66.10 cm/s 2304160893) Aortic valve mean 73.0 cm/s velocity (test code = 9549466542) Ao peak jovany (test code = 124.6 cm/s 7662542936) Ao VTI (test code = 18.6 cm 5721842207) AV area by cont VTI 2.8 cm2 (test code = 1115540543) AV area peak jovany (test 2.7 cm2 code = 9525419833) Ao max PG (test code = 6.20 mm[Hg] 7342829995) AV peak gradient (test mmHg code = 7507826258) AV valve area (test code 2.80 cm2 = 3197821879) AV mean gradient (test mmHg code = 5969999052) Radiology Study observation (narrative) (test code = 51462-2) JUAN ALBERTO (test code = JUAN ALBERTO) [...] mL of Lumason ultrasound enhancing agent used. [facility] 12:50:31 Test Item Value Reference Range Interpretation Comments POCT GLU (test code = 9066365190) 141 mg/dL 70-110 H Lab Interpretation (test code = Abnormal 91092-5) [facility] [id number] 10:38:31 Test Item Value Reference Interpretation Comments Range TROPONIN I (test 0.003 ng/mL See_Comment [Automated code = 6125810916) message] The system which generated this result [...] biotin. Lab Interpretation Normal (test code = 15675-2) [facility] (10150)(TOTAL CHOLESTEROL, TRIGLYCERIDES, HDL)2021-12-29 05:56:47 Test Item Value Reference Range Interpretation Comments CHOL (test code = 168 mg/dL 120-200 5081456301) HDL (test code = 102 mg/dL See_Comment [Automated message] 5305183658) The system Dinsmore Steele generated this result transmit naomie reference range : >=40. The refer ence range was not u sed to interpret th is result as normal/abnormal . HDLC RATIO (test code = See_Comment [Au tomated message] 9946174573) The system Dinsmore Steele generated this result transmit naomie reference range : <=5.0. The refe rence range was not u sed to interpret th is result as normal/abnormal . TRIG (test code = 55 mg/dL 30-170 8880594144) LDL CHOL (test code = 55 mg/dL See_Comment [Auto mated message] 16888-5) The system Dinsmore Steele generated this result transmit naomie reference range : <=160. The refe rence range was not u sed to interpret th is result as normal/abnormal . VLDL (test code = 11 mg/dL 5-60 6648419497) Lab Interpretation (test Normal code = 10836-6) [facility] (TSH)2021-12-29 05:40:29 Test Item Value Reference Range Interpretation Comments TSH (test code = See_Comment Biotin has been 4599797724) reported to cau se a negative bias, interpret resul ts relative to pat ient's use of biotin. [Automated mess age] The system Dinsmore Steele generated this result transmitted ref erence range: 0.45 - 4 .70 mIU/L. The refe rence range was not u sed to interpret this result as normal/abnor mal. Lab Interpretation (test Normal code = 15196-0) [facility]rop[facility] [id number] 05:34:29 Test Item Value Reference Interpretation Comments Range TROPONIN I (test 0.006 ng/mL See_Comment [Automated code = 4107461115) message] The system which generated this result [...] biotin. Lab Interpretation Normal (test code = 91622-6) [facility] CenterETHANOL2022-[facility]-10 04:43:01 ALCOHOL<10mg/dL12/28/2021 11:43 PM [facility] Greater than or equal to 80 mg/dL. NOTE: Whole blood values are approximately 10% to 15% lower than serum and plasma.[facility] CenterGlycosylated Hemoglobin (A1C)2021-12-29 01:51:44 Test Item Value Reference Range Interpretation Comments HGB A1C (test code = 6.5 % 4-5.7 H 4548-4) JUAN ALBERTO (test code = JUAN ALBERTO) Reference RangesNormal: <5.7%Prediabetes: 5.7 - 6.4%Diabetes: > 6.5% Lab Interpretation (test Abnormal code = 13259-9) [facility]TROP[facility]IN [id number] 21:26:50 Test Item Value Reference Interpretation Comments Range TROPONIN I (test 0.002 ng/mL See_Comment [Automated code = 4801972532) message] The system which generated this result [...] biotin. Lab Interpretation Normal (test code = 83680-5) [facility] CenterN-TERMINAL [id number] 21:23:29 Test Item Value Reference Range Interpretation Comments NT-proBNP (test code 41 pg/mL See_Comment [Autom ated = 8766784466) message] The system which generated this result transmitted reference range : <=125. The reference range was not used to interpret this result as normal/abnormal . JUAN ALBERTO (test code = JUAN ALBERTO) Biotin has been reported to cause a negative bias, interpret results relative to patient's use of biotin. Lab Interpretation Normal (test code = 70696-2) [facility] CenterAMMONIA, [id number] 21:20:38 Test Item Value Reference Range Interpretation Comments AMMONIA (test code = 9-33 L Slight hemolysis 7696500537) Lab Interpretation (test Abnormal code = 92645-3) [facility] CenterCOMP. METABOLIC PANEL (57576)2021-12-28 21:08:48 Test Item Value Reference Range Interpretation Comments NA (test code = 137 mmol/L 135-145 7044471223) K (test code = 4.5 mmol/L 3.5-5 7030404549) CL (test code = 97 mmol/L 98-108 L 1270854377) CO2 TOTAL (test code = 29 mmol/L 23-31 1878728782) AGAP (test code = 2-16 9398884735) BUN (test code = 10 mg/dL 7-23 8548782990) GLUCOSE (test code = 188 mg/dL 70-110 H 8640644700) CREATININE (test code = 0.58 mg/dL 0.6-1.25 L 2092570109) TOTAL BILI (test code = 0.8 mg/dL 0.1-1.1 7836720820) CALCIUM (test code = 10.5 mg/dL 8.6-10.6 7013820382) T PROTEIN (test code = 7.6 g/dL 6.3-8.2 8417647917) ALBUMIN (test code = 4.5 g/dL 3.5-5 4561330236) ALK PHOS (test code = 107 U/L 34-122 0282972781) ALTv (test code = 66 U/L 5-50 H 2-6) AST(SGOT) (test code = 96 U/L 13-40 H 5677130024) eGFR (test code = mL/min/1.73m2 1392461659) JUAN ALBERTO (test code = JUAN ALBERTO) [...] tests). Lab Interpretation Abnormal (test code = 59827-4) [facility] CenterPROTHROMBIN TIME / [id number] 21:01:25 Test Item Value Reference Range Interpretation Comments PROTIME PATIENT (test See_Comment [Auto mated message] code = 5964-2) The system [employer] generated this result transmitted ref erence range: 12.0 - 1 4.7 Seconds. The re ference range was not u sed to interpret this result as normal/abnor mal. INR (test code = 6301-6) Nor mal INR <1.1; Warfarin Therap eutic range 2.0 to 3. 0 or 2.5 to 3.5, dep ending upon the indica tions. Lab Interpretation (test Normal code = 39220-4) [facility] WITH [id number] 20:54:03 Test Item Value Reference Range Interpretation [...] RDW-SD (test code = 47.8 fL 38.5-51.6 29487-7) RDW-CV (test code = 13.3 % 12.1-15.4 788-0) PLT (test code = See_Comment [Automated 777-3) message] The sy stem which generated this result transmitted reference range : 150 - 328 10*3/ ?L. The reference r elba was not used to interpret this result as normal/abnormal . MPV (test code = 8.6 fL 9.8-13 L 86974-6) NRBC/100 WBC (test See_Comment [Automat ed code = 3794297522) message] The system which generated this result transmitted reference range : 0.0 - 10.0 /100 WBCs. The refer ence range was not u sed to interpret th is result as normal/abnormal . NRBC x10^3 (test code See_Comment [Auto mated = 9661056663) message] The s ystem which generated this result transmitted reference range : 10*3/?L. The reference range was not used to interpret this result as normal/abnormal . GRAN MAT (NEUT) % 64.1 % (test code = 770-8) IMM GRAN % (test code 0.40 % = 7440577842) LYMPH % (test code = 16.6 % 736-9) MONO % (test code = 17.2 % 5905-5) EOS % (test code = 0.2 % 713-8) BASO % (test code = 1.5 % 706-2) GRAN MAT x10^3(ANC) 3.47 10*3/uL 1.99-6.95 (test code = 5967461057) IMM GRAN x10^3 (test 0-0.06 code = 1595752380) LYMPH x10^3 (test code 0.90 10*3/uL 1.09-3.23 L = 731-0) MONO x10^3 (test code 0.93 10*3/uL 0.36-1.02 = 742-7) EOS x10^3 (test code = 0.06-0.53 L 711-2) BASO x10^3 (test code 0.08 10*3/uL 0.01-0.09 = 704-7) Lab Interpretation Abnormal (test code = 23279-9) [facility] CenterEthanol [id number] 21:08:00 Test Item Value Reference Range Interpretation Comments Ethanol (test code < 3 mg/dL The pharm acological = ETOH) response to blo od alcohol levels mayvary from individual to i ndividual. The fatal surinder ntrationhas been reported t o be >400mg/dL. Complete Blood Count Auto [id number] 17:33:00 Test Item Value Reference Range Interpretation [...] = NRBCP) 0 % UA, Urinalysis Rflx Cult/[id number] 17:33:00 Test Item Value Reference Range Interpretation Comments Color,Urine (test code = UCOL) Dark Yellow Yellow A Clarity,Urine (test code = Clear Clear UCLAR) Ph, Urine (test code = UPH) 6.5 5.0-9.0 N Specific [place],Urine (test 1.015 1.005-1.030 N code = USG) [...] mg/dL Negative A code = ULEU) Urine [id number] 17:33:00 Test Item Value Reference Range Interpretation Comments RBC,Urine (test code = URBCUF) None Seen /HPF 0-2 WBC,Urine (test code = UWBCUF) 0-5 /HPF 0-5 Epithelial Cell,Urine (test 0-5 /HPF 0-5 code = UECUF) Casts,Urine (test code = None Seen /LPF None Seen UCASTUF) Bacteria,Urine (test code = None Seen /hpf None Seen UBACTUF) Drug Screen,[id number] 17:33:00 Test Item Value Reference Range Interpretation [...] Urine (test code = UPROP) Comprehensive Metabolic [id number] 17:33:00 Test Item Value Reference Range Interpretation [...] 46-116 N = ALP) Sars-CoV-2/FLU A/B RSV [id number] 17:31:00 Test Item Value Reference Range Interpretation [...] (test code = SARS-CoV-2 PCR Result:) Drug Screen,[id number] 17:20:00 Test Item Value Reference Range Interpretation [...] code = UPROP) Complete Blood Count Auto [id number] 17:14:00 Test Item Value Reference Range Interpretation [...] code = NRBCP) 0 % Comprehensive Metabolic [id number] 17:14:00 Test Item Value Reference Range Interpretation [...] 207 U/L 46-116 H = ALP) Ethanol [id number] 17:14:00 Test Item Value Reference Range Interpretation Comments Ethanol (test code = ETOH) 192 mg/dL Complete Blood Count Auto [id number] 20:20:00 Test Item Value Reference Range Interpretation [...] code = NRBCP) 0 % Comprehensive Metabolic [id number] 20:20:00 Test Item Value Reference Range Interpretation [...] 189 U/L 46-116 H = ALP) Ethanol [id number] 20:20:00 Test Item Value Reference Range Interpretation Comments Ethanol (test code = ETOH) 10 mg/dL Sars-CoV-2/FLU A/B RSV [id number] 20:20:00 Test Item Value Reference Range Interpretation [...] = Amplification SARS-CoV-2 PCR Result:) UA, Urinalysis [id number] 20:20:00 Test Item Value Reference Range Interpretation Comments Color,Urine (test code = Yellow Y UCOL) Clarity,Urine (test code = Clear Clear UCLAR) PH,Urine (test code = 7.0 5.5-8.5 UPH.XX) Specific [place],Urine 1.020 1.005-1.030 N (test code = USG) [...] cells/uL Negative (test code = ULEU) Drug Screen,[id number] 20:20:00 Test Item Value Reference Range Interpretation [...] code = UTHCS) CT head/brain wo con [facility] [address] [place] [address] Patient Name: Walt Velazquez Medical Record#: [id number] Address: Homeless City/State/Zip: [place] [address]: Vinnie Navarro MD Phone: Insurance: Self Pay /Age/Sex: 1970/50/M Admit/Reg Date: 09/17/[address]: Vinnie Navarro MD Location: [facility]/ PCP: Pcp-Md KERWIN Stiles Date of Service: 09/17/21 Order (s): CT head/brain wo con CPT Code: 06234 Report Number: [id number] Reason for Exam: Altered mental status Location [...] MD 09/17/211824 TD/TT: 09/17/211824 Tech: ES135 cc: PCPNO; THELA* Vinnie Navarro MD; Pcp-Md KERWIN Stiles"
[2022-06-13 03:23] LABS: Absolute Lymphocytes (CBC) 1.3 K/uL (0.7-4.9); Hematocrit 45.2 % (39.6-49.0); Lymphocytes % 13.2 % (15.3-44.8); MCV 91.1 fL (80-100); MPV 6.2 fL (7.6-11.3); RBC Red Blood Cell Count 4.97 M/uL (4.33-5.43)
[2022-06-13 03:39] LABS: Potassium 3.7 mmol/L (3.5-5.1); Troponin High Sensitivity 18.7 pg/mL (<58.9)
[2022-06-13] MEDS ORDERED: LORazepam 2 MG/ML VIAL ONE ×2 (04:15→04:54)
[2022-06-13] MEDS ORDERED: ASPIRIN 81 MG CHEWABLE TABLET ONE (04:29)
[2022-06-13 04:48] LABS: Albumin 3.9 g/dL (3.4-5.0); Bilirubin Direct 0.2 mg/dL (0-0.2); Bilirubin Total 0.4 mg/dL (0.2-1.0)
[2022-06-13] MEDS ORDERED: NA CHLORIDE 0.9% 1,000 ML ONE (04:54)
[2022-06-13 05:39] LABS: Urine Blood Negative (Negative); Urine Glucose Trace (Negative); Urine Protein Negative (Negative)
[2022-06-13 05:54] LABS: Barbiturates NEGATIVE (NEGATIVE); Benzodiazepines NEGATIVE (NEGATIVE); Cocaine POSITIVE (NEGATIVE); METHAMPHETAM POSITIVE (NEGATIVE); Methadone NEGATIVE (NEGATIVE); Opiates NEGATIVE (NEGATIVE); Phencyclidine NEGATIVE (NEGATIVE); THC Cannibis NEGATIVE (NEGATIVE)
--- NOTE | 2022-06-13 06:04 | EDPHYS ---
Physician Documentation [facility] Name: Walt Velazquez Age: 51 yrs Sex: Male : 1970 Arrival Date: 06/13/2022 Time: 02:48 Bed 19 Private MD: ED Physician Elisa Ybarra HPI: 06/13 04:18 This 51 yrs old Male presents to ER via EMS with complaints of Chest Pain. sd2 04:18 51 yo M presents via EMS with CC of chest pain. Reports midsternal, non-radiating CP, sd2 head pain and bilateral eye pain that started tonight with a near syncopal episode as he was walking home in the freezing cold from a bar after drinking. He reports he normally drinks a 6 pack of beer a day that he spreads throughout the day but yesterday only had 3 beers last night at the bar. States many times he will have to wake up around 4 am and drink his first beer to prevent withdrawal. Has gone through detox in the past. Also endorses associated SOB and 1 episode of nausea and vomiting. No prior cardiac history. . Historical: - PMHx: 02:50 Alcoholism; Bipolar II; Hypertensive disorder; Parkinsons; Seizure; kd3 - Immunization history:: Adult Immunizations not up to date. - Social history:: Smoking status: unknown. ROS: 04:18 Constitutional: Negative for fever, chills, and weight loss, Eyes: Negative for injury, sd2 redness, and discharge, Positive for pain 04:18 MS/Extremity: Negative for injury and deformity, Skin: Negative for injury, rash, and discoloration, Neuro: Positive for headache, Negative for numbness and tingling. 04:18 Cardiovascular: Positive for chest pain, Negative for edema, orthopnea. 04:18 Respiratory: Positive for shortness of breath, Negative for cough, wheezing. 04:18 Abdomen/GI: Positive for nausea and vomiting, Negative for abdominal pain, diarrhea. Exam: 04:18 Constitutional: This is a well developed, well nourished patient who is awake, alert, sd2 and in no acute distress. Appears tremulous. Head/Face: Normocephalic, atraumatic. Eyes: EOMI, normal conjunctiva bilaterally Chest/axilla: Normal chest wall appearance and motion. Nontender with no deformity. Cardiovascular: Tachycardic rate and regular rhythm with a normal S1 and S2. No gallops, murmurs, or rubs. 2+ distal pulses. Respiratory: Lungs have equal breath sounds bilaterally, clear to auscultation and percussion. No rales, rhonchi or wheezes noted. No increased work of breathing, no retractions or nasal flaring. Abdomen/GI: Soft, non-tender, with normal bowel sounds. No guarding or rebound. No evidence of tenderness throughout. Skin: Warm, dry with normal turgor. Normal color with no rashes, no lesions, and no evidence of cellulitis. MS/ Extremity: Pulses equal, no cyanosis. Neurovascular intact. Full, normal range of motion. Ambulatory without difficulty. Psych: Awake, alert, with orientation to person, place and time. Behavior, mood, and affect are within normal limits. 04:18 ECG was reviewed by the Attending Physician. Sinus tachycardia, rate 116, no STEMI sd2 criteria Vital Signs: 02:52 Pulse 98; Resp 21 S; Temp 97.6(O); Pulse Ox 100% on R/A; Weight 63.5 kg (R); Height 5 kd3 ft. 3 in. (160.02 cm); Pain 5/10; 02:56 Weight 63.5 kg; Height 5 ft. 3 in. (160.02 cm); Pain 5/10; kd3 03:07 BP 148 / 110; Pulse 109; kd3 04:28 BP 137 / 79; Pulse 112; Resp 19; Pulse Ox 98% on R/A; kd3 05:07 BP 152 / 84; Pulse 120; Resp 17; Pulse Ox 98% on R/A; kd3 05:58 BP 113 / 71; Pulse 109; Resp 15 S; Pulse Ox 97% on R/A; as6 02:56 Body Mass Index 24.80 (63.50 kg, 160.02 cm) kd3 MDM: 03:52 Patient medically screened. sd2 04:18 Differential diagnosis: Differential diagnosis includes but is not limited to: ACS, sd2 DVT/PE, pneumothorax, dissection, musculoskeletal, anxiety, anemia, electrolyte abnormality, pneumonia, CHF, COPD, alcohol withdrawal among others. HEART Score: History: Moderately Suspicious (1), ECG: Normal (0), Age: > 45 and < 65 years (1), Risk Factors: 1 or 2 risk factors (1), Troponin: < or = 1 x Normal Limit (0), Total Score = 3. The patient was given aspirin in the Emergency Department. Data reviewed: vital signs, nurses notes, lab test result(s), EKG, radiologic studies. Counseling: I had a detailed discussion with the patient and/or guardian regarding: the historical points, exam findings, and any diagnostic results supporting the discharge/admit diagnosis, the presence of at least one elevated blood pressure reading (>120/80) during this emergency department visit, lab results, radiology results. 05:54 ED course: Labs and imaging reviewed. Trop neg. EKG with no ischemic changes. HR sd2 improved with Ativan and IVFs. Suspect mild ETOH withdrawal, now with improvement. Pt does not have interest in rehab or detox at this time. Will continue to drink upon discharge regularly. Counseled on safe cessation of alcohol. Pt sleeping comfortably. Will plan for discharge with outpatient follow up. . 06/13 02:57 Order name: Basic Metabolic Panel; Complete Time: 03:58 06/13 02:57 Order name: CBC with Diff; Complete Time: 03:58 06/13 02:57 Order name: Troponin HS; Complete Time: 03:58 06/13 04:24 Order name: Hepatic Function; Complete Time: 04:50 sd2 06/13 05:20 Order name: Lipase; Complete Time: 05:53 sd2 06/13 05:29 Order name: Urine Drug Screen; Complete Time: 06:06 sd2 06/13 02:57 Order name: XRAY Chest (1 view) 06/13 02:57 Order name: EKG; Complete Time: 02:58 06/13 05:29 Order name: Ethanol; Complete Time: 05:53 sd2 06/13 05:40 Order name: Urine Dipstick-Ancillary; Complete Time: 05:53 EDMS 06/13 02:57 Order name: Cardiac monitoring; Complete Time: 03:13 06/13 02:57 Order name: EKG - Nurse/Tech; Complete Time: 03:17 06/13 02:57 Order name: IV Saline Lock; Complete Time: 03:13 06/13 02:57 Order name: Labs collected and sent; Complete Time: 03:13 06/13 02:57 Order name: O2 Per Protocol; Complete Time: 03:13 bb 06/13 02:57 Order name: O2 Sat Monitoring; Complete Time: 03:13 bb Administered Medications: 04:15 Drug: Ativan (LORazepam) 1 mg Route: IVP; Site: right forearm; kd3 06:35 Follow up: Response: No adverse reaction as6 04:29 Drug: Aspirin Chewable Tablet 324 mg Route: PO; as6 06:34 Follow up: Response: No adverse reaction as6 04:58 Drug: NS 0.9% 1000 ml Route: IV; Rate: 1 bolus; Site: right forearm; kd3 06:34 Follow up: Response: No adverse reaction; IV Status: Completed infusion; IV Intake: as6 1000ml 04:58 Drug: Ativan (LORazepam) 1 mg Route: IVP; Site: right antecubital; kd3 06:34 Follow up: Response: No adverse reaction as6 Disposition Summary: 06/13/22 06:03 Discharge Ordered Location: Home sd2 Problem: new sd2 Symptoms: have improved sd2 Condition: Stable sd2 Diagnosis - Chest pain, unspecified sd2 - Alcohol abuse sd2 - Alcohol dependence with withdrawal sd2 - Cocaine abuse sd2 - Adverse effect of amphetamines sd2 Followup: sd2 - With: Private Physician - When: 2 - 3 days - Reason: Recheck today's complaints, Continuance of care, Re-evaluation by your physician Discharge Instructions: - Discharge Summary Sheet sd2 - Alcohol Withdrawal Syndrome sd2 - Nonspecific Chest Pain, Adult sd2 - Alcohol Abuse and Nutrition sd2 Forms: - Medication Reconciliation Form sd2 - Thank You Letter sd2 - Antibiotic Education sd2 - Prescription Opioid Use sd2 Signatures: Dispatcher [employer] Candy Coto RN RN bb Nico Dean RN RN as6 Tamara Ellsworth RN RN [id number] Elisa Ybarra MD MD sd2
--- NOTE | 2022-06-13 06:04 | ER ---
Nurse's Notes [facility] Name: Walt Velazquez Age: 51 yrs Sex: Male : 1970 Arrival Date: 06/13/2022 Time: 02:48 Bed 19 Private MD: Diagnosis: Chest pain, unspecified;Alcohol abuse;Alcohol dependence with withdrawal;Cocaine abuse;Adverse effect of amphetamines Presentation: 06/13 02:49 Chief complaint: EMS states: Pt was complaining of chest pain. Pt is homeless and kd3 smells of ETOH. He does not recall how he got in the parking lot of the [employer]. vital signs are stable. Coronavirus screen: Vaccine status: Patient reports being unvaccinated. Ebola Screen: No symptoms or risks identified at this time. Initial Sepsis Screen: Does the patient meet any 2 criteria? No. Patient's initial sepsis screen is negative. Does the patient have a suspected source of infection? No. Patient's initial sepsis screen is negative. Risk Assessment: Do you want to hurt yourself or someone else? Patient reports no desire to harm self or others. Onset of symptoms was June 13, 2022. 02:49 Method Of Arrival: EMS: [facility] kd3 02:49 Acuity: LATASHA 3 kd3 Triage Assessment: 02:50 General: Appears in no apparent distress. Behavior is calm, cooperative. Pain: kd3 Complains of pain in chest. Neuro: Level of Consciousness is awake, alert, obeys commands, Oriented to person, place, time, situation. Cardiovascular: Patient's skin is warm and dry. Respiratory: Airway is patent Trachea midline Respiratory effort is even, unlabored, Respiratory pattern is regular, symmetrical. GI: No deficits noted. No signs and/or symptoms were reported involving the gastrointestinal system. : No signs and/or symptoms were reported regarding the genitourinary system. Derm: No signs and/or symptoms reported regarding the dermatologic system. Historical: - PMHx: 02:50 Alcoholism; Bipolar II; Hypertensive disorder; Parkinsons; Seizure; kd3 - Immunization history:: Adult Immunizations not up to date. - Social history:: Smoking status: unknown. Screenin:55 [facility] ED Fall Risk Assessment (Adult) History of falling in the last 3 months, kd3 including since admission No falls in past 3 months (0 pts) Confusion or Disorientation No (0 pts) Intoxicated or Sedated Yes (3 pts) Impaired Gait No (0 pts) Mobility Assist Device Used No (0 pt) Altered Elimination No (0 pt) Score/Fall Risk Level 0 - 2 = Low Risk. Abuse screen: Denies threats or abuse. Denies injuries from another. Nutritional screening: No deficits noted. Tuberculosis screening: No symptoms or risk factors identified. Assessment: 02:56 Pain: Pain does not radiate. Pain began gradually. kd3 Vital Signs: 02:52 Pulse 98; Resp 21 S; Temp 97.6(O); Pulse Ox 100% on R/A; Weight 63.5 kg (R); Height 5 kd3 ft. 3 in. (160.02 cm); Pain 5/10; 02:56 Weight 63.5 kg; Height 5 ft. 3 in. (160.02 cm); Pain 5/10; kd3 03:07 BP 148 / 110; Pulse 109; kd3 04:28 BP 137 / 79; Pulse 112; Resp 19; Pulse Ox 98% on R/A; kd3 05:07 BP 152 / 84; Pulse 120; Resp 17; Pulse Ox 98% on R/A; kd3 05:58 BP 113 / 71; Pulse 109; Resp 15 S; Pulse Ox 97% on R/A; as6 02:56 Body Mass Index 24.80 (63.50 kg, 160.02 cm) kd3 ED Course: 02:48 Patient arrived in ED. kd3 02:50 Triage completed. kd3 02:52 Arm band placed on right wrist. kd3 02:56 Patient has correct armband on for positive identification. Placed in gown. Bed in low kd3 position. Client placed on continuous cardiac and pulse oximetry monitoring. NIBP monitoring applied. alarm security or surveillance monitor on. 02:56 No provider procedures requiring assistance completed. Patient maintains SpO2 kd3 saturation greater than 95% on room air. 02:57 Tamara Ellsworth, ROBERTO is Primary Nurse. kd3 03:12 XRAY Chest (1 view) In Process Unspecified. EDMS 03:52 Elisa Ybarra MD is Attending Physician. sd2 06:35 IV discontinued, intact, bleeding controlled, No redness/swelling at site. Pressure as6 dressing applied. Administered Medications: 04:15 Drug: Ativan (LORazepam) 1 mg Route: IVP; Site: right forearm; kd3 06:35 Follow up: Response: No adverse reaction as6 04:29 Drug: Aspirin Chewable Tablet 324 mg Route: PO; as6 06:34 Follow up: Response: No adverse reaction as6 04:58 Drug: NS 0.9% 1000 ml Route: IV; Rate: 1 bolus; Site: right forearm; kd3 06:34 Follow up: Response: No adverse reaction; IV Status: Completed infusion; IV Intake: as6 1000ml 04:58 Drug: Ativan (LORazepam) 1 mg Route: IVP; Site: right antecubital; kd3 06:34 Follow up: Response: No adverse reaction as6 Medication: 02:56 VIS not applicable for this client. kd3 Intake: 06:34 IV: 1000ml; Total: 1000ml. as6 Outcome: 06:03 Discharge ordered by . sd2 06:34 Discharged to home ambulatory. as6 06:34 Condition: stable 06:34 Discharge instructions given to patient, Instructed on discharge instructions, follow up and referral plans. Demonstrated understanding of instructions, follow-up care. 06:35 Patient left the ED. as6 Signatures: Dispatcher [employer] Nico Mcdowell RN RN as6 Tamara Ellsworth RN RN kd3 Elisa Ybarra MD MD sd2
[2022-06-13 06:45] VITALS: TEMP 97.6
[2022-06-13 06:50] VITALS: BP 113/71; O2SAT 97
--- NOTE | 2022-06-13 10:01 | RAD REPORT ---
EXAM DESCRIPTION: RAD - Chest Single View - 06/13/2022 3:10 am CLINICAL HISTORY: 51 years, Male, CHEST PAIN COMPARISON: None. FINDINGS: Single view of the chest was obtained portable. No prior films are available for compariso n. External EKG leads within the [id number] limits diagnosis. The cardiomediastinal silhouette dem onstrate to be unremarkable. The heart is not enlarged. The thoracic aorta is unremarkable. The pulmo nary vasculature is normal distribution. Costophrenic angles are sharp. No areas of consolidation o r masses are seen. The rest of the soft tissue and bony structures demonstrate to be unremarkable. IMPRESSION: No acute cardiopulmonary process identified. 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 The interpreting radiologist is fully responsible for the content of the report.
--- NOTE | 2022-06-14 17:25 | EKG ---
Test Date: 2022-06-13 Test Time: 03:20:37 [employer] Certified Powerplant Mechanic: MEASUREMENT RESULTS: Intervals: Rate: 116 CT: 162 QRSD: 68 QT: 310 QTc: 430 [place]: P: 56 CT: 162 QRS: 54 T: 36 INTERPRETIVE STATEMENTS: Sinus tachycardia Otherwise normal ECG Compared to ECG 05/07/2022 18:50:22 Sinus rhythm no longer present Electronically Signed On 06-14-22 17:24:24 WRAPPING MACHINE OPERATOR by Cristhian Hernandez
== END 2022-06-13 06:35 | disposition home or self-care (01) ==
LOC: ER 02:47
DX: R07.89 Other chest pain (principal); F10.239 Alcohol dependence with withdrawal, unspecified; F14.10 Cocaine abuse, uncomplicated; T43.625A Adverse effect of amphetamines, initial encounter; Z59.00 Homelessness unspecified
CPT/HCPCS: 36415; 71045; 80048; 80076; 80307; 80320; 81003; 83690; 84484; 85025; 93005; 99285; J7030

== ENCOUNTER 2022-06-13 12:53 | Emergency (ER) | payer SELFPAY ==
--- OUTSIDE RECORDS SUMMARY | 2022-06-13 12:59 | XMS REPORT | Continuity of Care Document ---
:[address] [facility] t Address [address] [place] [address] Care Team Providers Name Role Phone Pcp-None [...] Policy Number Effective Date [facility]piration Date [facility] [id number] SENIOR CARE 00:00:00 Problems Condition Condition Condition Status Onset [...] s 00 No Known DA Active U [facility] Drug 3-29 Allergie 00:00: s 00 No [...] ity of adverse 00:00: [place] reaction 00 Medical s Branch TRAZODON DRUG Active Other-Cmnt Univ ers E INGREDI 4-17 ity of 00:00: [place] 00 Medical Branch Social History Social Habit Start Date Stop Date Quantity Comments Source History of Smokes tobacco University of tobacco use daily [facility] Exposure to 2022-03-27 2022-04-06 Unable to assess Univers ity of SARS-CoV-2 00:00:00 09:36:00 [facility] (event) Branch Alcohol intake 2022-01-19 2022-01-19 Current drinker Unive rsity of 00:00:00 00:00:00 of alcohol [facility] (finding) Branch Tobacco use and 2021-12-28 2021-12-28 Smokeless tobacco Un iversity of exposure 00:00:00 00:00:00 non-user [facility] Tobacco Comment 2021-12-28 2021-12-28 1/2 a pack a day Uni versity of 00:00:00 00:00:00 [facility] Sex [birth year] At [birth year] Universit y of 00:00:00 00:00:00 [facility] Smoking Status Start Date Stop Date Source Smokes tobacco daily 2021-12-28 00:00:00 Univers ity of [facility] Medications Ordered Filled Start Stop Current Ordering [...] :00 dose, On Medi yudy mg Sun Roundup 04/06/22 at 1045, JACIEL oxazepam 2021- No 15mg 15 mg, Univer s (SERAX) 7 07-13 Oral, Q12H ity o f capsule 15 06:28: 06:29 [place] 17 :00 doses, Medical First dose Branch on Thu12/31/21 at 0130, Last dose on Thu12/31/21 at 1330, Routine multivitami Yes [id number] 1{tbl} Take 1 Univers n tablet 12-31 [id number] tablet by ity of 00:00: mouth in [place] 00 the Medical morning. Branch thiamine Yes [id number] 100mg Take 1 Univers 100 mg - [id number] tablet by ity of tablet 00:00: mouth in [place] 00 the Medical morning. Branch aspirin 81 Yes [id number] 81mg Take 1 Univers mg chewable 12-31 235559 tablet by i ty of tablet 00:00: mouth in [place] 00 the Medical morning. Branch multivitami 2021-0 Yes [id number] 1{tbl} Take 1 Univers n tablet 7-12 530403 tablet by ity of 00:00: mouth in [place] 00 the Medical morning. Branch thiamine 2021-0 Yes [id number] 100mg Take 1 Univers 100 mg 7-12 [id number] tablet by ity of tablet 00:00: mouth in [place] 00 the Medical morning. Branch aspirin 81 2021-0 Yes [id number] 81mg Take 1 Univers mg chewable 7-12 [id number] tablet by i ty of tablet 00:00: mouth in [place] 00 the Medical morning. Branch multivitami 2021-0 Yes [id number] 1{tbl} Take 1 Univers n tablet 7-12 [id number] tablet by ity of 00:00: mouth in [place] 00 the Medical morning. Branch thiamine 2021-0 Yes [id number] 100mg Take 1 Univers 100 mg 7- 624093 tablet by ity of tablet 00:00: mouth in [place] 00 the Medical morning. Branch aspirin 81 2021-0 Yes [id number] 81mg Take 1 Univers mg chewable 7- 993218 tablet by i ty of tablet 00:00: mouth in [place] 00 the Medical morning. Branch multivitami 2021-0 Yes [id number] 1{tbl} Take 1 Univers n tablet 7- 710287 tablet by ity of 00:00: mouth in [place] 00 the Medical morning. Branch thiamine 2021-0 Yes [id number] 100mg Take 1 Univers 100 mg 7- 059767 tablet by ity of tablet 00:00: mouth in [place] 00 the Medical morning. Branch aspirin 81 2021-0 Yes [id number] 81mg Take 1 Univers mg chewable - 571211 tablet by i ty of tablet 00:00: mouth in [place] 00 the Medical morning. Branch foLIC acid 2021-0 2021- No [id number] 1mg Take 1 Univers 1 mg tablet 12-31 [id number] tablet by ity of 00:00: 04:59 mouth in [place] 00 :00 the Medical morning Branch for 30 days. foLIC acid 2021-0 2021- No [id number] 1mg Take 1 Univers 1 mg tablet 12-31 [id number] tablet by ity of 00:00: 04:59 mouth in [place] 00 :00 the Medical morning Branch for 30 days. foLIC acid 2021- No [id number] 1mg Take 1 Univers 1 mg tablet 12-31 193396 tablet by ity of 00:00: 04:59 mouth in [place] 00 :00 [facility] for 30 days. metFORMIN Yes [id number] 500mg Take 1 Univers 500 mg 7- 868931 tablet by ity of tablet 00:00: mouth in [address] and 1 tablet in the evening. Take with meals. metFORMIN Yes [id number] 500mg Take 1 Univers 500 mg 7-11 [id number] tablet by ity of tablet 00:00: mouth in [address] and 1 tablet in the evening. Take with meals. metFORMIN Yes [id number] 500mg Take 1 Univers 500 mg 7- 643136 tablet by ity of tablet 00:00: mouth in [address] and 1 tablet in the evening. Take with meals. metFORMIN Yes [id number] 500mg Take 1 Univers 500 mg 7-11 957494 tablet by ity of tablet 00:00: mouth in [address] and 1 tablet in the evening. Take with meals. aspirin Yes 81mg 81 mg, Univers chewable 7-10 Oral, ity of tablet 81 14:00: DAILY, [place] mg 00 First dose Medical on [facility] 12/29/21 at 0900, Until Discontinu ed, Routine sulfur 2021- No [id number] 5mL 5 mL, Unive rs hexafluorid 12-29 07-10 Intravenou i ty of e microsphr 13:45: 13:45 s, ONCE, 1 [place] (LUMASON) 00 :00 dose, On Medica l injection 5 [facility] mL 12/29/21 at 0845, Routine
grocery team member approving Restricted medication : STEFANIE GORMAN enoxaparin Yes 40mg 40 mg, Unive rs (LOVENOX) 7-10 Subcutaneo ity of injection 13:00: us, Q24H, [place] as 40 mg 00 First dose Medical on [facility] 12/29/21 at 0800, Until Discontinu ed, Routine Sliding 2021- Yes Subcutaneo Univ ers Scale 7-10 us, TID ity of Insulin - 13:00: MEALS+HS, [place] as Lispro 00 First dose Medical (HumaLOG) + on [facility] Fsbg 12/29/21 at Testing 0800, Until Discontinu ed, Routine diazePAM 2021-2021- No 10mg 10 mg, Univer s (VALIUM) 7- 07-10 Intravenou ity of injection 05:30: 04:40 s, ONCE, 1 [place] 10 mg 00 :00 dose, On [facility] 12/29/21 at 0030, Routine diazePAM 2021-0 2021- No 10mg 10 mg, Univer s (VALIUM) 7 07-10 Intravenou ity of injection 04:15: 03:17 s, ONCE, 1 [place] 10 mg 00 :00 dose, On [facility] 12/28/21 Branch at 2315, Routine diazePAM 2021-0 Yes 5mg 5 mg, Univers (VALIUM) 7-10 Intravenou ity o f injection 5 03:45: s, QIDPRN, [place] mg 01 Starting Medical on [facility] 12/28/21 at 2245, Until Discontinu ed, Routine, Seizures, Agitation foLIC acid Yes 1mg 1 mg, Univer s (FOLATE) 7-10 Oral, ity of tablet 1 mg 03:45: DAILY, [place] 00 First dose Medical on [facility] 12/28/21 at 2245, Until Discontinu ed, Routine thiamine 2021-0 Yes 100mg 100 mg, Unive rs (VITAMIN 7-10 Oral, ity of B1) tablet 03:45: DAILY, [place] 100 mg 00 First dose Medical (after Branch last modificati on) on [facility] 12/28/21 at 2245, Until Discontinu ed, Routine glucagon 2021-0 Yes 1mg 1 mg, Univers (GLUCAGEN 7-10 Intramuscu ity of DIAGNOSTIC 03:42: [place], PRN, [place]) 19 Starting Medical injection 1 on [facility] 12/28/21 at 2242, Until Discontinu ed, JACIEL, [...] or has mental status changes, Starting on [facility] 12/28/21 at 2242
If blood glucose [...] [place] mg 00 :00 dose, On Medical [facility] 12/28/21 Branch at 2230, Routine
Is the medication being used for status epilepticu s? No oxazepam 0 Yes 15mg 15 mg, Univers (SERAX) 7-10 Oral, ity of capsule 15 00:28: Q4HPRN, [place] 20 Starting Medical on [facility] Branch 12/28/21 at 1928, Until Discontinu ed, Routine, Only while awake for DBP equal to or greater than 100, HR equal to or greater than 100. ondansetron 0 Yes 4mg 4 mg, Slow Univers (ZOFRAN 7-10 IV Push, ity of (PF)) 00:23: Q6HPRN, [place] injection 4 47 Starting Medi yudy mg on [facility] Branch 12/28/21 at 1923, Until Discontinu ed, Routine, Nausea and Vomiting (N/V) acetaminoph 2021-0 Yes 650mg 650 mg, Un lorena en 7-10 Oral, ity of (TYLENOL) 00:23: Q6HPRN, [place] tablet 650 37 Starting Medic al mg on [facility] Branch 12/28/21 at 1923, Until Discontinu [...] 98 /min University of Arterial blood by [employer] Pulse oximetry Branch Body temperature 2022-04-06 14:41:00 37 Theresa Univ ersity of [place] [facility] Body height 2022-04-06 14:41:00 160 cm Universi ty [facility] [place] [facility] Body weight 2022-04-06 14:41:00 63.504 kg Universi ty of [place] [facility] BMI 2022-04-06 14:41:00 24.80 kg/m2 Universi ty [facility] [place] [facility] Systolic blood 2022-01-20 02:27:00 121 mm[Hg] Univer sity of pressure [place] [facility] Diastolic blood 2022-01-20 02:27:00 75 mm[Hg] Unive rsity of pressure [place] [facility] Heart rate 2022-01-20 02:27:00 79 /min Universi ty [facility] [place] [facility] Respiratory rate 2022-01-20 02:27:00 12 /min Univ ersity of [place] [facility] Oxygen saturation in 2022-01-20 02:27:00 98 /min University of Arterial blood by [employer] Pulse oximetry Branch Body temperature 2022-01-19 22:19:00 36.44 Theresa Univ [facility] [place] [facility] Body weight 2022-01-19 22:19:00 60.328 kg Universi ty [facility] [place] [facility] BMI 2022-01-19 22:19:00 23.56 kg/m2 [facility]i ty [facility] [place] [facility] Systolic blood 2021-12-30 20:52:00 134 mm[Hg] Univer sity of pressure [place] [facility] Diastolic blood 2021-12-30 20:52:00 76 mm[Hg] Unive rsity of pressure [place] [facility] Heart rate 2021-12-30 20:52:00 67 /min Universi ty [facility] [place] [facility] Body temperature 2021-12-30 20:26:00 36.67 Theresa [facility] [place] [facility] Oxygen saturation in 2021-12-30 20:26:00 99 /min University of Arterial blood by [facility] Pulse oximetry Round[place] Respiratory rate 2021-12-30 16:21:00 18 /min [facility] Body weight 2021-12-30 08:27:00 60.464 kg [facility] BMI 2021-12-30 08:27:00 23.61 kg/m2 [facility] Body height 2021-12-29 01:29:00 160 cm [facility] Procedures Procedure Date / Time Performing Clinician Source Performed XR CHEST 1 VW 2022-04-06 14:51:50 Diay Chowdhury [facility] LIPASE 2022-04-06 14:42:00 Luciana [facility] TROPONIN I 2022-04-06 14:42:00 Diya Chowdhury [facility] COMP. METABOLIC PANEL 2022-04-06 14:42:00 Diya Chowdhury [facility] ([id number] CBC WITH DIFF 2022-04-06 14:42:00 Diya Chowdhury [facility] PROTHROMBIN TIME / INR 2022-04-06 14:42:00 [facility] 2022-04-06 14:42:00 Diya Chowdhury [facility] LACTIC ACID WHOLE BLOOD 2022-01-20 00:22:00 Leticia Hameed [facility] URINE DRUG (IMMUNOASSAY) 2022-01-19 23:10:00 Leticia Hameed [facility] SCREEN URINALYSIS 2022-01-19 23:10:00 Leticia Hameed [facility] TROPONIN I 2022-01-19 23:00:00 Leticia Hameed [facility] COMP. METABOLIC PANEL 2022-01-19 23:00:00 Leticia Hameed [facility] ([id number] LITHIUM 2022-01-19 23:00:00 Leticia Hameed [facility] ETHANOL 2022-01-19 23:00:00 Leticia Hameedge [facility] CBC WITH DIFF 2022-01-19 23:00:00 Leticia Hameed [facility] COVID-19 (ID NOW RAPID 2022-01-19 23:00:00 Leticia Hameed [facility] TESTING) Medical Branch CT HEAD WO CONTRAST 2022-01-19 22:49:[address] [facility] ty [facility] XR CHEST 1 VW 2022-01-19 22:41:00 Leticia Hameed [facility] POCT GLUCOSE (AUTOMATED) 2022-01-19 22:25:00 Leticia Hameed [facility] POCT GLUCOSE (AUTOMATED) 2021-12-30 21:55:00 Jessica Prado [facility] POCT GLUCOSE (AUTOMATED) 2021-12-30 16:21:00 Jessica Prado [facility] POCT GLUCOSE (AUTOMATED) 2021-12-30 12:30:00 Jessica Prado [facility] HEPATIC FUNCTION PANEL 2021-12-30 09:28:00 Maira Gaitan [facility] ([id number]) (ALB,T.PRO,[facility] T,BU/BC,ALT,AST,ALK PHOS) POCT GLUCOSE (AUTOMATED) 2021-12-30 02:11:00 Jessica Prado [facility] POCT GLUCOSE (AUTOMATED) 2021-12-29 21:41:00 Jessica Prado [facility] POCT GLUCOSE (AUTOMATED) 2021-12-29 16:37:00 Jessica Prado [facility] TRANSTHORACIC ECHO (TTE) 2021-12-29 13:05:00 Jessica Prado [facility] W/ CONTRAST Medical [facility] POCT GLUCOSE (AUTOMATED) 2021-12-29 12:41:00 Jessica Prado [facility] TROPONIN I 2021-12-29 09:42:00 Jessica Prado [facility] TROPONIN I 2021-12-29 04:55:00 Eve [facility] CT HEAD WO CONTRAST 2021-12-28 21:18:22 Pia Renteria [facility] AMMONIA, PLASMA 2021-12-28 21:00:00 Pia Renteria [facility] COVID-19 (ID NOW RAPID 2021-12-28 20:42:00 Dexter [facility] TESTING) Medical Branch LAB ONLY COVID 2021-12-28 20:42:00 Pia Renteria [facility] INTERPRETATION [facility] URINE DRUG (IMMUNOASSAY) 2021-12-28 20:42:00 Pia Renteria [facility] DRUG [facility] nch SCREEN W/O REFLEX URINALYSIS 2021-12-28 20:40:00 [facility]MIN[facility] PRO-BNP 2021-12-28 20:40:00 Pia Renteria [facility] TROPONIN I 2021-12-28 20:40:00 [facility] THYROID STIMULATING 2021-12-28 20:40:00 Jessica Prado [facility] HORMONE [facility] COMP. METABOLIC PANEL 2021-12-28 20:40:00 Pia Renteria [facility] ([id number]) [facility] LIPID PANEL ([id number])(TOTAL 2021-12-28 20:40:00 [facility] TRIGLY[facility], HDL) ETHANOL 2021-12-28 20:40:00 Demetrius [facility] CBC WITH DIFF 2021-12-28 20:40:00 Dexter [facility] GLYCOSYLATED HEMOGLOBIN 2021-12-28 20:40:00 Eve [facility] (A1C) [facility] PROTHROMBIN TIME / INR 2021-12-28 20:40:00 Pia Renteria [facility] XR CHEST 1 VW 2021-12-28 20:16:00 [facility] ROUTINE & RHYTHM 2021-12-28 20:04:59 Pia Renteria [facility] Encounters Start End Encounter Admission Attending Care Care Encounter Source Date/Time Date/Time Type Type Clinicians Facility Department ID 2021-09-17 Inpatient [facility] [id number] [facility] 16:45:00 35 2020-06-06 Inpatient [facility] [id number] [facility] 16:07:00 05 2020-06-06 Inpatient [facility] [id number] [facility] 06:20:00 77 2020-06-05 Inpatient [facility] [id number] [facility] 19:35:00 25 2020-05-23 Inpatient [facility] [id number] [facility] 19:53:00 39 2020-05-23 Inpatient [facility] [id number] [facility] 19:53:00 39 2022-04-06 2022-04-06 Emergency X LUCIANA [facility] ERT [id number] Univers 09:38:00 11:42:00 DIYA rahman [facility] 2022-04-06 2022-04-06 Emergency Luciana [facility] [id number] Univers 09:38:00 11:42:00 Diya OTTO [id number] i ty stacey MARTINI 4.2.7.2.686 [facility] [id number] [address] 2022-03-07 2022-03-07 Emergency [facility] [id number] [facility] 12:38:00 12:38:00 74 2022-03-07 2022-03-07 Emergency Emergency Fidel Cuellar [facility] [id number] [facility] 12:38:00 12:38:00 74 2022-01-19 2022-01-19 Emergency X NNEKA [facility] ERT [id number] Univers 17:18:00 22:00:00 DIRK rahman [facility] 2022-01-19 2022-01-19 Emergency Leticia Hameed [facility] 1.2.840. [id number] Univers 17:18:00 22:00:00 Dirk Yarbrough [id number] ity stacey MARTINI 4.2.7.2.686 [facility] [id number] [facility] 084 Branch 2021-12-31 2021-12-31 Transition EDMUNDO Portillo 1.2.840.114 [id number] Univers 00:00:00 00:00:00 of Care Faye RANKIN [id number] ity of RAMON 4.2.7.2.686 [facility] [id number] [facility] 403 Branch 2021-12-28 2021-12-30 Inpatient X EVE [facility] [id number] Univers 14:53:00 17:42:00 JESSICA ity of [facility] 2021-12-28 2021-12-30 Hospital Pia Renteria [facility] 1.2.840. 114 [id number] Univers 14:53:00 17:42:00 Encounter Jessica Prado [id number] ity of VINI 4.2.7.2.686 [facility] [id number] [facility] 081 Branch 2021-09-17 2021-09-17 Emergency [facility] [id number] [facility] 16:47:00 16:47:00 35 2020-06-06 2020-06-06 Emergency [facility] [id number] [facility] 16:07:00 16:07:00 05 Results Test Description Test Time Test Comments Results Result Comments Source TROPONIN I 2022-04-06 15:15:32 Test Item Value Reference Range Interpretation Comme nts TROPONIN I (test code = 0.007 ng/mL See_Comment [Au tomated message] The 3913255252) system which ge nerated this result tra [...] biotin. Lab Interpretation Normal (test code = 03228-8) [facility] 15:08:29 Test Item Value Reference [...] seconds. Lab Interpretation Normal (test code = 97038-7) [facility]PROT[facility] / [id number] 15:06:28 Test Item Value Reference Range Interpretation [...] tions. Lab Interpretation (test Normal code = 34409-6) [facility] METABOLIC PANEL ([id number])2022-04-06 15:03:31 Test Item Value Reference Range Interpretation Comments NA (test code = 136 mmol/L 135-145 3862979251) K (test code = 5.0 mmol/L 3.5-5 1535238731) CL (test code = 104 mmol/L 98-108 3417716398) CO2 TOTAL (test code = 21 mmol/L 23-31 L 8641316073) AGAP (test code = 2-16 7556218841) BUN (test code = 11 mg/dL 7-23 0288695211) GLUCOSE (test code = 162 mg/dL 70-110 H 8305146056) CREATININE (test code = 0.52 mg/dL 0.6-1.25 L 5153173595) TOTAL BILI (test code = 1.0 mg/dL 0.1-1.2 8759187948) CALCIUM (test code = 9.3 mg/dL 8.6-10.6 6248137391) T PROTEIN (test code = 7.4 g/dL 6.3-8.2 5786825122) ALBUMIN (test code = 4.4 g/dL 3.5-5 4998802756) ALK PHOS (test code = 134 U/L 34-122 H 5390763508) ALTv (test code = 17 U/L 5-50 1742-6) AST(SGOT) (test code = 38 U/L 13-40 9112468347) eGFR (test code = mL/min/1.73m2 0022745556) JUAN ALBERTO (test code = JUAN ALBERTO) [...] tests). Lab Interpretation Abnormal (test code = 99395-8) [facility] CenterLIPASE, [id number] 15:03:31 Test Item Value Reference Range Interpretation Comments LIPASE (test code = 4067843841) 29 U/L 0-220 Lab Interpretation (test code = Normal 01670-8) [facility] CenterCB WITH [id number] 14:51:49 Test Item Value Reference Range Interpretation [...] RDW-SD (test code = 45.9 fL 38.5-51.6 80633-3) RDW-CV (test code = 13.3 % 12.1-15.4 788-0) PLT (test code = See_Comment [Automated 777-3) message] The sy stem which generated this result transmitted reference range : 150 - 328 10*3/ ?L. The reference r elba was not used to interpret this result as normal/abnormal . MPV (test code = 8.4 fL 9.8-13 L 07922-4) NRBC/100 WBC (test See_Comment [Automat ed code = 6229300295) message] The system which generated this result transmitted reference range : 0.0 - 10.0 /100 WBCs. The refer ence range was not u sed to interpret th is result as normal/abnormal . NRBC x10^3 (test code See_Comment [Auto mated = 4041430918) message] The s ystem which generated this result transmitted reference range : 10*3/?L. The reference range was not used to interpret this result as normal/abnormal . GRAN MAT (NEUT) % 63.0 % (test code = 770-8) IMM GRAN % (test code 0.50 % = 2165376258) LYMPH % (test code = 25.2 % 736-9) MONO % (test code = 9.8 % 5905-5) EOS % (test code = 0.3 % 713-8) BASO % (test code = 1.2 % 706-2) GRAN MAT x10^3(ANC) 3.73 10*3/uL 1.99-6.95 (test code = 8172833630) IMM GRAN x10^3 (test 0.03 10*3/uL 0-0.06 code = 3843515157) LYMPH x10^3 (test code 1.49 10*3/uL 1.09-3.23 = 731-0) MONO x10^3 (test code 0.58 10*3/uL 0.36-1.02 = 742-7) EOS x10^3 (test code = 0.06-0.53 L 711-2) BASO x10^3 (test code 0.07 10*3/uL 0.01-0.09 = 704-7) Lab Interpretation Abnormal (test code = 91869-2) [facility] CenterUA, Urinalysis Rflx Cult/[id number] 13:53:00 Test Item Value Reference Range Interpretation Comments Color,Urine (test code = UCOL) Yellow Yellow Clarity,Urine (test code = Cloudy Clear A UCLAR) Ph, Urine (test code = UPH) 7.5 5.0-9.0 N Specific [place],Urine (test 1.025 1.005-1.030 N code = USG) [...] mg/dL Negative code = ULEU) UF REFLEXDrug Screen,[id number] 13:53:00 Test Item Value Reference Range Interpretation [...] code = UPROP) Complete Blood Count Auto [id number] 12:58:00 Test Item Value Reference Range Interpretation [...] = NRBCP) 0 % Coronavirus PCR, COVID19 [id number] 12:58:00 Test Item Value Reference Range Interpretation Comments Coronavirus PCR, COVID19 Rapid (test code = SARSCOV2) Coronavirus PCR, COVID19 Reference Range: Rapid (test code = Negative TCMRVGA83.1) SARS-CoV-2 PCR Result: Negative by RT-PCR (test code = SARS-CoV-2 PCR Result:) COVID-19 Status: AsymptomaticComprehensive Metabolic [id number] 12:58:00 Test Item Value Reference Range Interpretation [...] 144 U/L 46-116 H = ALP) Ethanol [id number] 12:58:00 Test Item Value Reference Range Interpretation Comments Ethanol (test code < 3 mg/dL The pharm acological = ETOH) response to blo od alcohol levels mayvary from individual to i ndividual. The fatal surinder ntrationhas been reported t o be >400mg/dL. [id number] 01:47:56 Test Item Value Reference Range Interpretation Comments [place] (test code = 0.7 mmol/L 0.6-1.2 5282381275) JUAN ALBERTO (test code = JUAN ALBERTO) Toxic Range: ? Greater than 1.2 mmol/L Lab Interpretation (test Normal code = 86514-9) [facility]ENTERSHAKIRAN [id number] 00:26:53 Test Item Value Reference Interpretation Comments Range TROPONIN I (test 0.002 ng/mL See_Comment [Automated code = 9081919735) message] The system which generated this result [...] biotin. Lab Interpretation Normal (test code = 02407-9) [facility] CenterETHANOL2022-08-01 00:18:52 ALCOHOL<10mg/dL01/19/2022 7:18 PM [facility]<10 [id number] Toxic>100 Depression of [employer]>400 [facility]. METABOLIC PANEL (45586) 2022-01-20 00:16:16 Test Item Value Reference Range Interpretation Comments NA (test code = 137 mmol/L 135-145 3029567648) K (test code = 4.5 mmol/L 3.5-5 9770490348) CL (test code = 103 mmol/L 98-108 7834813096) CO2 TOTAL (test code = 26 mmol/L 23-31 3738182349) AGAP (test code = 2-16 6871103992) BUN (test code = 10 mg/dL 7-23 1469917526) GLUCOSE (test code = 121 mg/dL 70-110 H 4494465850) CREATININE (test code = 0.65 mg/dL 0.6-1.25 6146877116) TOTAL BILI (test code = 0.8 mg/dL 0.1-1.8 3280162616) CALCIUM (test code = 11.4 mg/dL 8.6-10.6 H 3099909712) T PROTEIN (test code = 7.2 g/dL 6.3-8.2 9787783781) ALBUMIN (test code = 4.6 g/dL 3.5-5 6836441831) ALK PHOS (test code = 112 U/L 34-122 5549848120) ALTv (test code = 19 U/L 5-50 1742-6) AST(SGOT) (test code = 26 U/L 13-40 3746208664) eGFR (test code = mL/min/1.73m2 8044005608) JUAN ALBERTO (test code = JUAN ALBERTO) [...] tests). Lab Interpretation Abnormal (test code = 96079-0) [facility] WITH [id number] 23:43:54 Test Item Value Reference Range Interpretation Comments WBC (test code = See_Comment [Automated 4390-2) message] The sy stem which generated this [...] RDW-SD (test code = 44.0 fL 38.5-51.6 38238-4) RDW-CV (test code = 12.6 % 12.1-15.4 788-0) PLT (test code = See_Comment [Automated 777-3) message] The sy stem which generated this result transmitted reference range : 150 - 328 10*3/ ?L. The reference r elba was not used to interpret this result as normal/abnormal . MPV (test code = 9.1 fL 9.8-13 L 99372-5) NRBC/100 WBC (test See_Comment [Automat ed code = 4973890599) message] The system which generated this result transmitted reference range : 0.0 - 10.0 /100 WBCs. The refer ence range was not u sed to interpret th is result as normal/abnormal . NRBC x10^3 (test code See_Comment [Auto mated = 7023568569) message] The s ystem which generated this result transmitted reference range : 10*3/?L. The reference range was not used to interpret this result as normal/abnormal . GRAN MAT (NEUT) % 69.8 % (test code = 770-8) IMM GRAN % (test code 0.40 % = 8866483366) LYMPH % (test code = 18.0 % 736-9) MONO % (test code = 10.9 % 5905-5) EOS % (test code = 0.1 % 713-8) BASO % (test code = 0.8 % 706-2) GRAN MAT x10^3(ANC) 5.58 10*3/uL 1.99-6.95 (test code = 8274228658) IMM GRAN x10^3 (test 0.03 10*3/uL 0-0.06 code = 2217598897) LYMPH x10^3 (test code 1.44 10*3/uL 1.09-3.23 = 731-0) MONO x10^3 (test code 0.87 10*3/uL 0.36-1.02 = 742-7) EOS x10^3 (test code = 0.06-0.53 L 711-2) BASO x10^3 (test code 0.06 10*3/uL 0.01-0.09 = 704-7) Lab Interpretation Abnormal (test code = 83006-7) [facility] GLUCOSE (AUTOMATED)2022-01-19 22:27:41 Test Item Value Reference Range Interpretation Comments POCT GLU (test code = 0570918921) 123 mg/dL 70-110 H Lab Interpretation (test code = Abnormal 84152-4) [facility] GLUCOSE (AUTOMATED)2021-12-30 22:08:16 Test Item Value Reference Range Interpretation Comments POCT GLU (test code = 9601107685) 167 mg/dL 70-110 H Lab Interpretation (test code = Abnormal 97600-1) [facility] GLUCOSE (AUTOMATED)2021-12-30 16:50:40 Test Item Value Reference Range Interpretation Comments POCT GLU (test code = 7615481884) 154 mg/dL 70-110 H Lab Interpretation (test code = Abnormal 52676-2) [facility] GLUCOSE (AUTOMATED)2021-12-30 12:38:43 Test Item Value Reference Range Interpretation Comments POCT GLU (test code = 8117667533) 164 mg/dL 70-110 H Lab Interpretation (test code = Abnormal 18142-6) [facility] GLUCOSE (AUTOMATED)2021-12-30 02:14:58 Test Item Value Reference Range Interpretation Comments POCT GLU (test code = 7703298296) 220 mg/dL 70-110 H Lab Interpretation (test code = Abnormal 78988-7) [facility] GLUCOSE (AUTOMATED)2021-12-29 21:50:02 Test Item Value Reference Range Interpretation Comments POCT GLU (test code = 2400394640) 191 mg/dL 70-110 H Lab Interpretation (test code = Abnormal 43403-1) [facility] GLUCOSE (AUTOMATED)2021-12-29 20:15:01 Test Item Value Reference Range Interpretation Comments POCT GLU (test code = 2587658670) 163 mg/dL 70-110 H Lab Interpretation (test code = Abnormal 12842-4) [facility] 19:12:22 Test Item Value Reference Range Interpretation Comments Height (test code = in 0577572188) Weight (test code = lbs 8931289262) Systolic BP (test code = mmHg 0427095484) Diastolic BP (test code mmHg = 5464142677) Heart Rate (test code = bpm 3427650048) BSA (test code = 1.62 m2 7988894454) Ao root annulus (test 2.45 cm code = 3251673730) Ao root diam (test code 2.45 cm = 3063181166) Aortic root (test code = 2.45 cm 4260545045) ACS (test code = 1.66 cm 0495254899) LA size (test code = 3.2 cm 4623688656) LVOT diameter (test code 1.95 cm = 6307700472) LVIDD (test code = 3.60 cm 8490989874) IVS (test code = 0.94 cm 8235792048) Interventricular Septum 0.94 cm Diastolic Thickness by 2D (test code = 4738088) LVPWD (test code = 0.80 cm 3471145955) PW (test code = 0.80 cm 0.6-1.1 9586207171) EF(Teich) (test code = 52.80 % 1441116679) LVIDS (test code = 2.60 cm 5072845879) FS (test code = 27 % 3894226244) EF - 2D (test code = 52.80 % 13589165) LAV(MOD-sp4) (test code 16.80 mL = 5620106744) MV Peak E Jovany (test code 46.1 cm/s = 9478264425) E wave decelartion time 0.31 s (test code = 5216209513) MV Peak A Jovany (test code 58.1 cm/s = 9141095625) E/A ratio (test code = ratio 3575139358) MV E/e' septal (test 5.7 cm/s code = 7160317986) Tapse (test code = 1.60 cm 9753943324) LVOT stroke volume (test 52.10 cm3 code = 6976669436) LVOT peak jovany (test code 110.6 cm/s = 7684923186) LVOT mn grad (test code mmHg = 2746433006) AV LVOT peak gradient mmHg (test code = 5522534947) LVOT peak VTI (test code 17.4 cm = 8423466843) LV V1 mean (test code = 66.10 cm/s 1356185090) Aortic valve mean 73.0 cm/s velocity (test code = 5602751207) Ao peak jovany (test code = 124.6 cm/s 1555418717) Ao VTI (test code = 18.6 cm 7330127149) AV area by cont VTI 2.8 cm2 (test code = 1108459329) AV area peak jovany (test 2.7 cm2 code = 2221988192) Ao max PG (test code = 6.20 mm[Hg] 6928862230) AV peak gradient (test mmHg code = 3365230542) AV valve area (test code 2.80 cm2 = 9821547185) AV mean gradient (test mmHg code = 9074562362) Radiology Study observation (narrative) (test code = 85379-4) JUAN ALBERTO (test code = JUAN ALBERTO) [...] mL of Lumason ultrasound enhancing agent used. [facility] 12:50:31 Test Item Value Reference Range Interpretation Comments POCT GLU (test code = 7866943624) 141 mg/dL 70-110 H Lab Interpretation (test code = Abnormal 63670-6) [facility] [id number] 10:38:31 Test Item Value Reference Interpretation Comments Range TROPONIN I (test 0.003 ng/mL See_Comment [Automated code = 6414684152) message] The system which generated this result [...] biotin. Lab Interpretation Normal (test code = 89816-2) [facility] (42161)(TOTAL CHOLESTEROL, TRIGLYCERIDES, HDL)2021-12-29 05:56:47 Test Item Value Reference Range Interpretation Comments CHOL (test code = 168 mg/dL 120-200 6362418071) HDL (test code = 102 mg/dL See_Comment [Automated message] 9100594663) The system [employer] generated this result transmit naomie reference range : >=40. The refer ence range was not u sed to interpret th is result as normal/abnormal . HDLC RATIO (test code = See_Comment [Au tomated message] 8277884784) The system [employer] generated this result transmit naomie reference range : <=5.0. The refe rence range was not u sed to interpret th is result as normal/abnormal . TRIG (test code = 55 mg/dL 30-170 9925680524) LDL CHOL (test code = 55 mg/dL See_Comment [Auto mated message] 22184-3) The system [employer] generated this result transmit naomie reference range : <=160. The refe rence range was not u sed to interpret th is result as normal/abnormal . VLDL (test code = 11 mg/dL 5-60 3664852077) Lab Interpretation (test Normal code = 80018-1) [facility] (TSH)2021-12-29 05:40:29 Test Item Value Reference Range Interpretation Comments TSH (test code = See_Comment Biotin has been 1228181648) reported to cau se a negative bias, interpret resul ts relative to pat ient's use of biotin. [Automated mess age] The system [employer] generated this result transmitted ref erence range: 0.45 - 4 .70 mIU/L. The refe rence range was not u sed to interpret this result as normal/abnor mal. Lab Interpretation (test Normal code = 55790-2) [facility]rop[facility] [id number] 05:34:29 Test Item Value Reference Interpretation Comments Range TROPONIN I (test 0.006 ng/mL See_Comment [Automated code = 0316888546) message] The system which generated this result [...] biotin. Lab Interpretation Normal (test code = 05845-9) [facility] CenterETHANOL2022-[facility]-10 04:43:01 ALCOHOL<10mg/dL12/28/2021 11:43 PM [facility]ATORYToxic Greater than or equal [...] 6.5% Lab Interpretation (test Abnormal code = 05074-9) [facility] CenterTROPONIN [id number] 21:26:50 Test Item Value Reference Interpretation Comments Range TROPONIN I (test 0.002 ng/mL See_Comment [Automated code = 6846401311) message] The system which generated this result [...] biotin. Lab Interpretation Normal (test code = 31090-8) [facility] CenterN-TERMINAL [id number] 21:23:29 Test Item Value Reference Range Interpretation Comments NT-proBNP (test code 41 pg/mL See_Comment [Autom ated = 1625261880) message] The system which generated this result transmitted reference range : <=125. The reference range was not used to interpret this result as normal/abnormal . JUAN ALBERTO (test code = JUAN ALBERTO) Biotin has been reported to cause a negative bias, interpret results relative to patient's use of biotin. Lab Interpretation Normal (test code = 75079-8) [facility] CenterAMMONIA, [id number] 21:20:38 Test Item Value Reference Range Interpretation Comments AMMONIA (test code = 9-33 L Slight hemolysis 9611575260) Lab Interpretation (test Abnormal code = 19143-7) [facility] CenterCOMP. METABOLIC PANEL (93980)2021-12-28 21:08:48 Test Item Value Reference Range Interpretation Comments NA (test code = 137 mmol/L 135-145 6084443722) K (test code = 4.5 mmol/L 3.5-5 1796354508) CL (test code = 97 mmol/L 98-108 L 7156268076) CO2 TOTAL (test code = 29 mmol/L 23-31 8823030132) AGAP (test code = 2-16 5157070341) BUN (test code = 10 mg/dL 7-23 3066404848) GLUCOSE (test code = 188 mg/dL 70-110 H 6758492238) CREATININE (test code = 0.58 mg/dL 0.6-1.25 L 4494136550) TOTAL BILI (test code = 0.8 mg/dL 0.1-1.4 3813358559) CALCIUM (test code = 10.5 mg/dL 8.6-10.6 4093900493) T PROTEIN (test code = 7.6 g/dL 6.3-8.2 4303981950) ALBUMIN (test code = 4.5 g/dL 3.5-5 6860101944) ALK PHOS (test code = 107 U/L 34-122 9222273070) ALTv (test code = 66 U/L 5-50 H 1742-6) AST(SGOT) (test code = 96 U/L 13-40 H 9629829793) eGFR (test code = mL/min/1.73m2 8636118398) JUAN ALBERTO (test code = JUAN ALBERTO) [...] tests). Lab Interpretation Abnormal (test code = 58570-3) [facility] CenterPROTHROMBIN TIME / [id number] 21:01:25 Test Item Value Reference Range Interpretation Comments PROTIME PATIENT (test See_Comment [Auto mated message] code = 5964-2) The system [employer] generated this result transmitted ref erence range: 12.0 - 1 4.7 Seconds. The re ference range was not u sed to interpret this result as normal/abnor mal. INR (test code = 6301-6) Nor mal INR <1.1; Warfarin Therap eutic range 2.0 to 3. 0 or 2.5 to 3.5, dep ending upon the indica tions. Lab Interpretation (test Normal code = 63137-9) [facility] WITH [id number] 20:54:03 Test Item Value Reference Range Interpretation [...] RDW-SD (test code = 47.8 fL 38.5-51.6 51667-5) RDW-CV (test code = 13.3 % 12.1-15.4 788-0) PLT (test code = See_Comment [Automated 777-3) message] The sy stem which generated this result transmitted reference range : 150 - 328 10*3/ ?L. The reference r elba was not used to interpret this result as normal/abnormal . MPV (test code = 8.6 fL 9.8-13 L 05361-1) NRBC/100 WBC (test See_Comment [Automat ed code = 0475578500) message] The system which generated this result transmitted reference range : 0.0 - 10.0 /100 WBCs. The refer ence range was not u sed to interpret th is result as normal/abnormal . NRBC x10^3 (test code See_Comment [Auto mated = 3574446904) message] The s ystem which generated this result transmitted reference range : 10*3/?L. The reference range was not used to interpret this result as normal/abnormal . GRAN MAT (NEUT) % 64.1 % (test code = 770-8) IMM GRAN % (test code 0.40 % = 8548692286) LYMPH % (test code = 16.6 % 736-9) MONO % (test code = 17.2 % 5905-5) EOS % (test code = 0.2 % 713-8) BASO % (test code = 1.5 % 706-2) GRAN MAT x10^3(ANC) 3.47 10*3/uL 1.99-6.95 (test code = 8321053190) IMM GRAN x10^3 (test 0-0.06 code = 5375222293) LYMPH x10^3 (test code 0.90 10*3/uL 1.09-3.23 L = 731-0) MONO x10^3 (test code 0.93 10*3/uL 0.36-1.02 = 742-7) EOS x10^3 (test code = 0.06-0.53 L 711-2) BASO x10^3 (test code 0.08 10*3/uL 0.01-0.09 = 704-7) Lab Interpretation Abnormal (test code = 71508-9) [facility] CenterEthanol [id number] 21:08:00 Test Item Value Reference Range Interpretation Comments Ethanol (test code < 3 mg/dL The pharm acological = ETOH) response to blo od alcohol levels mayvary from individual to i ndividual. The fatal surinder ntrationhas been reported t o be >400mg/dL. Complete Blood Count Auto [id number] 17:33:00 Test Item Value Reference Range Interpretation [...] = NRBCP) 0 % UA, Urinalysis Rflx Cult/[id number] 17:33:00 Test Item Value Reference Range Interpretation Comments Color,Urine (test code = UCOL) Dark Yellow Yellow A Clarity,Urine (test code = Clear Clear UCLAR) Ph, Urine (test code = UPH) 6.5 5.0-9.0 N Specific [place],Urine (test 1.015 1.005-1.030 N code = USG) [...] mg/dL Negative A code = ULEU) Urine [id number] 17:33:00 Test Item Value Reference Range Interpretation Comments RBC,Urine (test code = URBCUF) None Seen /HPF 0-2 WBC,Urine (test code = UWBCUF) 0-5 /HPF 0-5 Epithelial Cell,Urine (test 0-5 /HPF 0-5 code = UECUF) Casts,Urine (test code = None Seen /LPF None Seen UCASTUF) Bacteria,Urine (test code = None Seen /hpf None Seen UBACTUF) Drug Screen,[id number] 17:33:00 Test Item Value Reference Range Interpretation [...] Urine (test code = UPROP) Comprehensive Metabolic [id number] 17:33:00 Test Item Value Reference Range Interpretation [...] 46-116 N = ALP) Sars-CoV-2/FLU A/B RSV [id number] 17:31:00 Test Item Value Reference Range Interpretation [...] (test code = SARS-CoV-2 PCR Result:) Drug Screen,[id number] 17:20:00 Test Item Value Reference Range Interpretation [...] code = UPROP) Complete Blood Count Auto [id number] 17:14:00 Test Item Value Reference Range Interpretation [...] code = NRBCP) 0 % Comprehensive Metabolic [id number] 17:14:00 Test Item Value Reference Range Interpretation [...] 207 U/L 46-116 H = ALP) Ethanol [id number] 17:14:00 Test Item Value Reference Range Interpretation Comments Ethanol (test code = ETOH) 192 mg/dL Complete Blood Count Auto [id number] 20:20:00 Test Item Value Reference Range Interpretation [...] code = NRBCP) 0 % Comprehensive Metabolic [id number] 20:20:00 Test Item Value Reference Range Interpretation [...] 189 U/L 46-116 H = ALP) Ethanol [id number] 20:20:00 Test Item Value Reference Range Interpretation Comments Ethanol (test code = ETOH) 10 mg/dL Sars-CoV-2/FLU A/B RSV [id number] 20:20:00 Test Item Value Reference Range Interpretation [...] = Amplification SARS-CoV-2 PCR Result:) UA, Urinalysis [id number] 20:20:00 Test Item Value Reference Range Interpretation Comments Color,Urine (test code = Yellow Y UCOL) Clarity,Urine (test code = Clear Clear UCLAR) PH,Urine (test code = 7.0 5.5-8.5 UPH.XX) Specific [place],Urine 1.020 1.005-1.030 N (test code = USG) [...] cells/uL Negative (test code = ULEU) Drug Screen,[id number] 20:20:00 Test Item Value Reference Range Interpretation [...] code = UTHCS) CT head/brain wo con [facility] [address] [place] [address] Patient Name: Walt Velazquez Medical Record#: [id number] Address: Homeless City/State/Zip: [place] [address]: Vinnie Navarro MD Phone: Insurance: Self Pay /Age/Sex: 1970/50/M Admit/Reg Date: 09/17/[address]: Vinnie Navarro MD Location: [facility]/ PCP: Pcp-Md KERWIN Stiles Date of Service: 09/17/21 Order (s): CT head/brain wo con CPT Code: 21328 Report Number: [id number] Reason for Exam: Altered mental status Location [...] are intact. There is mild generalized parenchymal volumeloss with compensatory widening of the ventricular system. Og-white differentiation is maintained.The basal cisterns are preserved. Visualized orbits, paranasal sinus and mastoid air spaces appear wi thin normal limits. Calvarium is intact. There is [...]
[2022-06-13 13:27] LABS: Absolute Lymphocytes (CBC) 1.4 K/uL (0.7-4.9); Hematocrit 41.9 % (39.6-49.0); Lymphocytes % 19.3 % (15.3-44.8); MCV 91.1 fL (80-100); MPV 6.3 fL (7.6-11.3)
[2022-06-13 13:45] LABS: Potassium 3.4 mmol/L (3.5-5.1); Troponin High Sensitivity 17.8 pg/mL (<58.9)
[2022-06-13] MEDS ORDERED: ONDANSETRON 4 MG (ODT) TAB ONE (14:07)
[2022-06-13] MEDS ORDERED: ACETAMINOPHEN 500 MG TAB ONE (14:07)
--- NOTE | 2022-06-13 14:40 | RAD REPORT ---
EXAM DESCRIPTION: RAD - Chest Single View - 06/13/2022 2:19 pm CLINICAL HISTORY: CHEST PAIN COMPARISON: Portable 06/13/2022 TECHNIQUE: AP portable chest image was obtained 06/13/2022 2:19 pm . FINDINGS: No focal mass or consolidation. Lung markings are similar to comparison. Heart and vascula ture are normal. No measurable pleural effusion and no pneumothorax. No acute bony abnormality seen. No acute aortic findings suspected. IMPRESSION: No acute cardiopulmonary process. No significant change from comparison study.
--- NOTE | 2022-06-13 14:52 | EDPHYS ---
Physician Documentation [facility] Name: Walt Velazquez Age: 51 yrs Sex: Male : 1970 Arrival Date: 06/13/2022 Time: 12:56 Bed 18 Private MD: ED Physician Jovanny Wen HPI: 06/13 13:35 This 51 yrs old Male presents to ER via EMS with complaints of Chest Pain. ms3 13:35 The patient or guardian reports chest pain that is located primarily in the anterior ms3 aspect of left upper chest. Onset: 3 day(s) ago. The pain does not radiate. Associated signs and symptoms: Pertinent positives: None. Pertinent negatives: None. The chest pain is described as sharp. Duration: The patient or guardian reports a single episode. Modifying factors: The symptoms are alleviated by nothing. the symptoms are aggravated by nothing. Severity of pain: At its worst the pain was moderate in the emergency department the pain has improved. EMS care prior to arrival includes: aspirin, nitroglycerin, x 1. Historical: - Allergies: 12:58 No Known Allergies; hb - PMHx: 12:58 Alcoholism; Bipolar II; Hypertensive disorder; Parkinsons; Seizure; hb - Immunization history:: Adult Immunizations up to date. - Social history:: Smoking status: Patient reports the use of cigarette tobacco products, smokes one-half pack cigarettes per day. ROS: 13:35 Constitutional: Negative for fever, and chills. Neck: Negative for injury, pain, and ms3 swelling. 13:35 Respiratory: Negative for shortness of breath, cough, wheezing, and pleuritic chest pain, Abdomen/GI: Negative for abdominal pain, nausea, vomiting, diarrhea, and constipation, MS/Extremity: Negative for injury and deformity, Skin: Negative for injury, rash, and discoloration. 13:35 Cardiovascular: Positive for chest pain. 13:35 All other systems are negative. Exam: 13:06 ECG was reviewed by the Attending Physician. ms3 13:35 Constitutional: This is a well developed, well nourished patient who is awake, alert, ms3 and in no acute distress. Head/Face: Normocephalic, atraumatic. Eyes: Pupils equal round and reactive to light, extra-ocular motions intact. Lids and lashes normal. Conjunctiva and sclera are non-icteric and not injected. Periorbital areas with no swelling, redness, or edema. Neck: Trachea midline, no cervical lymphadenopathy. Supple, full range of motion without nuchal rigidity, or vertebral point tenderness. No Meningismus. Chest/axilla: Normal chest wall appearance and motion. Nontender with no deformity. 13:35 Abdomen/GI: Soft, non-tender, with normal bowel sounds. No distension or tympany. No guarding or rebound. No evidence of tenderness throughout. Skin: Warm, dry with normal turgor. Normal color with no rashes, no lesions, and no evidence of cellulitis. MS/ Extremity: Pulses equal, no cyanosis. Neurovascular intact. Full, normal range of motion. Psych: Awake, alert, with orientation to person, place and time. Behavior, mood, and affect are within normal limits. 13:35 Chest/axilla: Inspection: no acute changes, Palpation: tenderness, that is moderate, of the anterior aspect of left upper chest. 13:35 Cardiovascular: Rate: tachycardic, Rhythm: regular, Pulses: no pulse deficits are appreciated, Heart sounds: normal. Vital Signs: 12:56 BP 161 / 90; Pulse 115; Resp 23; Temp 98.3; Pulse Ox 100% on R/A; Weight 74.84 kg; hb Height 5 ft. 2 in. (157.48 cm); Pain 5/10; 12:56 Body Mass Index 30.18 (74.84 kg, 157.48 cm) hb MDM: 13:03 Patient medically screened. ms3 13:35 Differential diagnosis: abnormal EKG, acute myocardial infarction, chest wall pain. ms3 14:52 HEART Score: History: Slightly Suspicious (0), ECG: Normal (0), Age: > 45 and < 65 ms3 years (1), Risk Factors: 1 or 2 risk factors (1), Troponin: < or = 1 x Normal Limit (0), Total Score = 2. Data reviewed: vital signs, nurses notes, lab test result(s), EKG, radiologic studies, and as a result, I will discharge patient. Counseling: I had a detailed discussion with the patient and/or guardian regarding: the historical points, exam findings, and any diagnostic results supporting the discharge/admit diagnosis, lab results, radiology results, the need for outpatient follow up, to return to the emergency department if symptoms worsen or persist or if there are any questions or concerns that arise at home. Special discussion: Based on the patient's history, exam, and Dx evaluation, there is no indication for emergent intervention or inpatient Tx. It is understood by the patient/guardian that if the Sx's persist or worsen they need to return immediately for re-evaluation. ED course: Patient with down trend in Hgb. Patient without hematemesis, melena, or bloody stools. Discussed labs, EKG, chest x-ray with patient. Patient's vital signs are stable from discharge this morning. Patient to follow-up with Dr. Wilkes in 2 to 3 days. Patient understands agrees with plan. All questions were answered. Return precautions discussed include worsening symptoms, or any other concerns. 06/13 13:06 Order name: Basic Metabolic Panel; Complete Time: 13:48 ms3 06/13 13:06 Order name: CBC with Diff; Complete Time: 13:48 ms3 06/13 13:06 Order name: Troponin HS; Complete Time: 13:48 ms3 06/13 13:06 Order name: XRAY Chest (1 view); Complete Time: 14:44 ms3 06/13 13:06 Order name: EKG; Complete Time: 13:07 ms3 06/13 13:06 Order name: Cardiac monitoring; Complete Time: 13:10 ms3 06/13 13:06 Order name: EKG - Nurse/Tech; Complete Time: 13:10 ms3 06/13 13:06 Order name: IV Saline Lock; Complete Time: 13:10 ms3 06/13 13:06 Order name: Labs collected and sent; Complete Time: 13:10 ms3 06/13 13:06 Order name: O2 Per Protocol; Complete Time: 13:10 ms3 06/13 13:06 Order name: O2 Sat Monitoring; Complete Time: 13:10 ms3 EC:06 Rate is 99 beats/min. Rhythm is regular. QRS [place] is Normal. NC interval is normal. QRS ms3 interval is normal. QT interval is normal. Clinical impression: Normal ECG. Interpreted by me. Reviewed by me. Administered Medications: 14:10 Drug: Tylenol 1000 mg Route: PO; hb Disposition Summary: 06/13/22 14:51 Discharge Ordered Location: Home ms3 Condition: Stable ms3 Diagnosis - Chest pain, unspecified ms3 - Essential (primary) hypertension ms3 Followup: ms3 - With: Hernan Wilkes DO - When: 2 - 3 days - Reason: Re-evaluation by your physician Discharge Instructions: - Discharge Summary Sheet ms3 - Nonspecific Chest Pain, Adult ms3 - Hypertension, Adult ms3 Forms: - Medication Reconciliation Form ms3 - Thank You Letter ms3 - Antibiotic Education ms3 - Prescription Opioid Use ms3 Signatures: Dispatcher [employer] Landy Leon, RN RN Jovanny Sheehan DO DO ms3
--- NOTE | 2022-06-13 14:52 | ER ---
Nurse's Notes [facility] Name: Walt Velazquez Age: 51 yrs Sex: Male : 1970 Arrival Date: 06/13/2022 Time: 12:56 Bed 18 Private MD: Diagnosis: Chest pain, unspecified;Essential (primary) hypertension Presentation: 06/13 12:56 Chief complaint: EMS states: Chest pain x 3 days. BP 203/12/, improved to 148/83 after hb Nitro x 1 [address] ASA [address] on 12 lead. Coronavirus screen: At this time, the client does not indicate any symptoms associated with coronavirus-19. Ebola Screen: No symptoms or risks identified at this time. Initial Sepsis Screen: Does the patient meet any 2 criteria? No. Patient's initial sepsis screen is negative. Does the patient have a suspected source of infection? No. Patient's initial sepsis screen is negative. Risk Assessment: Do you want to hurt yourself or someone else? Patient reports no desire to harm self or others. Onset of symptoms was June 10, 2022. 12:56 Method Of Arrival: EMS: [facility] hb 12:56 Acuity: LATASHA 3 hb Triage Assessment: 12:59 General: Appears in no apparent distress. Behavior is cooperative, anxious. Pain: Pain hb currently is 5 out of 10 on a pain scale. EENT: No signs and/or symptoms were reported regarding the EENT system. Neuro: Level of Consciousness is awake, alert, obeys commands, Oriented to person, place, time, situation, Reports headache. Cardiovascular: Reports chest pain, Patient's skin is warm and dry. Rhythm is sinus tachycardia. Respiratory: Respiratory effort is even, unlabored, Respiratory pattern is regular, symmetrical. GI: No signs and/or symptoms were reported involving the gastrointestinal system. : No signs and/or symptoms were reported regarding the genitourinary system. Derm: Skin is pink, warm \T\ dry. Musculoskeletal: No signs and/or symptoms reported regarding the musculoskeletal system. Historical: - Allergies: 12:58 No Known Allergies; hb - PMHx: :58 Alcoholism; Bipolar II; Hypertensive disorder; Parkinsons; Seizure; hb - Immunization history:: Adult Immunizations up to date. - Social history:: Smoking status: Patient reports the use of cigarette tobacco products, smokes one-half pack cigarettes per day. Screenin:00 [facility] ED Fall Risk Assessment (Adult) Score/Fall Risk Level 0 - 2 = Low Risk hb Oriented to surroundings, Maintained a safe environment. Abuse screen: Denies threats or abuse. Denies injuries from another. Nutritional screening: No deficits noted. Tuberculosis screening: No symptoms or risk factors identified. Assessment: 12:59 General: See triage assessment. hb Vital Signs: 12:56 BP 161 / 90; Pulse 115; Resp 23; Temp 98.3; Pulse Ox 100% on R/A; Weight 74.84 kg; hb Height 5 ft. 2 in. (157.48 cm); Pain 5/10; 12:56 Body Mass Index 30.18 (74.84 kg, 157.48 cm) hb ED Course: 12:56 Patient arrived in ED. hb 12:58 Triage completed. hb 12:58 Jovanny Wen DO is Attending Physician. [facility] 12:58 Arm band placed on. hb 13:00 Patient has correct armband on for positive identification. Client placed on continuous hb cardiac and pulse oximetry monitoring. NIBP monitoring applied. 13:10 Basic Metabolic Panel Sent. mm9 13:10 CBC with Diff Sent. mm9 13:10 Troponin HS Sent. mm9 13:10 Initial lab(s) drawn, by az, sent to lab. EKG done, by ED staff, reviewed by Jovanny Wen DO. Maintain EMS IV. Dressing intact. Good blood return noted. Site clean \T\ dry. 13:11 Warm blanket given. datapower developer on. Pulse ox on. NIBP on. mm9 14:21 XRAY Chest (1 view) In Process Unspecified. EDMS 14:51 Hernan Wilkes DO is Referral Physician. ms3 Administered Medications: 14:10 Drug: Tylenol 1000 mg Route: PO; hb Medication: 13:00 VIS not applicable for this client. hb Outcome: 14:51 Discharge ordered by ms3 15:07 Patient left the ED. hb Signatures: Dispatcher [employer] EDMS Monico Kumar PA PA jmm Baxter, Heather RN RN hb Jovanny Wen DO DO ms3 Lina Mortensen mm9
[2022-06-13 15:12] VITALS: BP 161/90; TEMP 98.3; O2SAT 100
--- NOTE | 2022-06-15 17:04 | EKG ---
Test Date: 2022-06-13 Test Time: 13:06:37 Money Position Officer: JUAN DAVID MEASUREMENT RESULTS: Intervals: Rate: 99 NE: 150 QRSD: 76 QT: 336 QTc: 431 [place]: P: 42 NE: 150 QRS: 34 T: 22 INTERPRETIVE STATEMENTS: Normal sinus rhythm Normal ECG Compared to ECG 06/13/2022 03:20:37 Sinus tachycardia no longer present Electronically Signed On 06-15-22 17:02:14 COAT CUTTER by Cristhian Hernandez
== END 2022-06-13 15:07 | disposition home or self-care (01) ==
LOC: ER 12:53
DX: R07.89 Other chest pain (principal); I10 Essential (primary) hypertension; F10.20 Alcohol dependence, uncomplicated; F17.210 Nicotine dependence, cigarettes, uncomplicated
CPT/HCPCS: 36415; 71045; 80048; 84484; 85025; 93005; 99284; Q0162

== ENCOUNTER 2022-06-23 21:00 | Emergency (ER) | payer SELFPAY ==
--- OUTSIDE RECORDS SUMMARY | 2022-06-23 21:05 | XMS REPORT | Continuity of Care Document ---
:1970 Author Organization [facility] t Address [address] [place] [address] Care Team Providers Name Role Phone Pcp-None [...] Unavailable DIYA CHOWDHURY Admitting Clinician Unavailable Leticia HAMEDE Admitting Clinician Unavailable JESSIAC PRADO Admitting Clinician Unavailable Jessica Prado MD Admitting Clinician Payers Payer Name Policy Type Policy Number Effective Date Expiration Date Rhoda xiong [facility] [id number] 2021 ALF 00:00:00 Problems Condition Condition Condition Status Onset [...] [facility] Exposure to 2022-03-27 2022-04-06 Unable to assess Univers ity of SARS-CoV-2 00:00:00 09:36:00 [facility] (event) Branch Alcohol intake 2022-01-19 2022-01-19 Current drinker Unive rsity of 00:00:00 00:00:00 of alcohol [facility] (finding) Branch Tobacco use and 2021-12-28 2021-12-28 Smokeless tobacco Un iversity of exposure 00:00:00 00:00:00 non-user [facility] Tobacco Comment 2021-12-28 2021-12-28 1/2 a pack a day Uni versity of 00:00:00 00:00:00 [facility] Sex Ass[birth year] At [birth year] Universit y of 00:00:00 00:00:00 [facility] Smoking Status Start Date Stop Date Source Smokes tobacco daily 2021-12-28 00:00:00 Univers ity of [facility] Medications Ordered Filled Start Stop Current Ordering [...] :00 dose, On Medi yudy mg [place] 04/06/22 at 1045, JACIEL oxazepam 2021- No 15mg 15 mg, Univer s (SERAX) 7 07-13 Oral, Q12H ity o f capsule 15 06:28: 06:29 [place] 2 [place] 17 :00 doses, Medical First dose Branch on Thu12/31/21 at 0130, Last dose on Thu12/31/21 at 1330, Routine multivitami Yes [id number] 1{tbl} Take 1 Univers n tablet 12-31 [id number] tablet by ity of 00:00: mouth in [place] 00 the Medical morning. Branch thiamine Yes [id number] 100mg Take 1 Univers 100 mg - [id number] tablet by ity of tablet 00:00: mouth in [place] 00 the Medical morning. Branch aspirin 81 Yes [id number] 81mg Take 1 Univers mg chewable 12-31 [id number] tablet by i ty of tablet 00:00: mouth in [place] 00 the Medical morning. Branch multivitami 2021-0 Yes [id number] 1{tbl} Take 1 Univers n tablet 7-12 522440 tablet by ity of 00:00: mouth in [place] 00 the Medical morning. Branch thiamine 2021-0 Yes [id number] 100mg Take 1 Univers 100 mg 7-12 964443 tablet by ity of tablet 00:00: mouth in [place] 00 the Medical morning. Branch aspirin 81 2021-0 Yes [id number] 81mg Take 1 Univers mg chewable 7-12 941018 tablet by i ty of tablet 00:00: mouth in [place] 00 the Medical morning. Branch multivitami 2021-0 Yes [id number] 1{tbl} Take 1 Univers n tablet 7-12 109624 tablet by ity of 00:00: mouth in [place] 00 the Medical morning. Branch thiamine 2021-0 Yes [id number] 100mg Take 1 Univers 100 mg 7- 887360 tablet by ity of tablet 00:00: mouth in [place] 00 the Medical morning. Branch aspirin 81 2021-0 Yes [id number] 81mg Take 1 Univers mg chewable 7- 702724 tablet by i ty of tablet 00:00: mouth in [place] 00 the Medical morning. Branch multivitami 2021-0 Yes [id number] 1{tbl} Take 1 Univers n tablet 7- 263546 tablet by ity of 00:00: mouth in [place] 00 the Medical morning. Branch thiamine 2021-0 Yes [id number] 100mg Take 1 Univers 100 mg 7- 343709 tablet by ity of tablet 00:00: mouth in [place] 00 the Medical morning. Branch aspirin 81 2021-0 Yes [id number] 81mg Take 1 Univers mg chewable - 178516 tablet by i ty of tablet 00:00: mouth in [place] 00 the Medical morning. Branch foLIC acid 2021-0 2021- No [id number] 1mg Take 1 Univers 1 mg tablet 12-31 285001 tablet by ity of 00:00: 04:59 mouth in [place] 00 :00 the Medical morning Branch for 30 days. foLIC acid 2021-0 2021- No [id number] 1mg Take 1 Univers 1 mg tablet 12-31 026015 tablet by ity of 00:00: 04:59 mouth in [place] 00 :00 the Medical morning Branch for 30 days. foLIC acid 2021- No [id number] 1mg Take 1 Univers 1 mg tablet 12-31 822350 tablet by ity of 00:00: 04:59 mouth in [place] 00 :00 [facility] for 30 days. metFORMIN Yes [id number] 500mg Take 1 Univers 500 mg 7- 851159 tablet by ity of tablet 00:00: mouth in [address] and 1 tablet in the evening. Take with meals. metFORMIN Yes [id number] 500mg Take 1 Univers 500 mg 7-11 676393 tablet by ity of tablet 00:00: mouth in [address] and 1 tablet in the evening. Take with meals. metFORMIN Yes [id number] 500mg Take 1 Univers 500 mg 7- 501171 tablet by ity of tablet 00:00: mouth in [address] and 1 tablet in the evening. Take with meals. metFORMIN Yes [id number] 500mg Take 1 Univers 500 mg 7-11 686796 tablet by ity of tablet 00:00: mouth in [address] and 1 tablet in the evening. Take with meals. aspirin Yes 81mg 81 mg, Univers chewable 7-10 Oral, ity of tablet 81 14:00: DAILY, [place] mg 00 First dose Medical on [facility] 12/29/21 at 0900, Until Discontinu ed, Routine sulfur 2021- No [id number] 5mL 5 mL, Unive rs hexafluorid 12-29 07-10 Intravenou i ty of e microsphr 13:45: 13:45 s, ONCE, 1 [place] (LUMASON) 00 :00 dose, On Medica l injection 5 [facility] mL 12/29/21 at 0845, Routine
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 approving Restricted medication : STEFANIE GORMAN enoxaparin Yes 40mg 40 mg, Unive rs (LOVENOX) 7-10 Subcutaneo ity of injection 13:00: us, Q24H, [place] 40 mg 00 First dose Medical on [facility] 12/29/21 at 0800, Until Discontinu ed, Routine Sliding 2021- Yes Subcutaneo Univ ers Scale 7-10 us, TID ity of Insulin - 13:00: MEALS+HS, [place] Lispro 00 First dose Medical (HumaLOG) + on [facility] Fsbg 12/29/21 at Testing 0800, Until Discontinu ed, Routine diazePAM 2021-2021- No 10mg 10 mg, Univer s (VALIUM) 7- 07-10 Intravenou ity of injection 05:30: 04:40 s, ONCE, 1 [place] 10 mg 00 :00 dose, On [facility] 12/29/21 at 0030, Routine diazePAM 2021-0 2021- No 10mg 10 mg, Univer s (VALIUM) 7 07-10 Intravenou ity of injection 04:15: 03:17 s, ONCE, 1 [place] 10 mg 00 :00 dose, On [facility] 12/28/21 Branch at 2315, Routine diazePAM 2021-0 Yes 5mg 5 mg, Univers (VALIUM) 7-10 Intravenou ity o f injection 5 03:45: s, QIDPRN, [place] mg 01 Starting Medical on [facility] 12/28/21 at 2245, Until Discontinu ed, Routine, Seizures, Agitation foLIC acid Yes 1mg 1 mg, Univer s (FOLATE) 7-10 Oral, ity of tablet 1 mg 03:45: DAILY, [place] 00 First dose Medical on [facility] 12/28/21 at 2245, Until Discontinu ed, Routine thiamine 2021-0 Yes 100mg 100 mg, Unive rs (VITAMIN 7-10 Oral, ity of B1) tablet 03:45: DAILY, [place] 100 mg 00 First dose Medical (after Branch last modificati on) on [facility] 12/28/21 at 2245, Until Discontinu ed, Routine glucagon 2021-0 Yes 1mg 1 mg, Univers (GLUCAGEN 7-10 Intramuscu ity of DIAGNOSTIC 03:42: [place], PRN, [place]) 19 Starting Medical injection 1 on [facility] 12/28/21 at 2242, Until Discontinu ed, JACIEL, [...] or has mental status changes, Starting on [facility] 12/28/21 at 2242
If blood [...] [place] mg 00 :00 dose, On Medical [facility] 12/28/21 Branch at 2230, Routine
Is the medication being used for status epilepticu s? No oxazepam 0 Yes 15mg 15 mg, Univers (SERAX) 7-10 Oral, ity of capsule 15 00:28: Q4HPRN, [place] 20 Starting Medical on [facility] Branch 12/28/21 at 1928, Until Discontinu ed, Routine, Only while awake for DBP equal to or greater than 100, HR equal to or greater than 100. ondansetron 0 Yes 4mg 4 mg, Slow Univers (ZOFRAN 7-10 IV Push, ity of (PF)) 00:23: Q6HPRN, [place] injection 4 47 Starting Medi yudy mg on [facility] Branch 12/28/21 at 1923, Until Discontinu ed, Routine, Nausea and Vomiting (N/V) acetaminoph 2021-0 Yes 650mg 650 mg, Un lorena en 7-10 Oral, ity of (TYLENOL) 00:23: Q6HPRN, [place] tablet 650 37 Starting Medic al mg on [facility] Branch 12/28/21 at 1923, Until [...] 16:00:00 125 mm[Hg] Univer sity of pressure [place] Medical Branch Diastolic blood 2022-04-06 16:00:00 75 mm[Hg] Unive rsity of pressure [place] [facility] Heart rate 2022-04-06 16:00:00 87 /min Universi ty of [place] [facility] Respiratory rate 2022-04-06 16:00:00 22 /min Univ ersity of [place] [facility] Oxygen saturation in 2022-04-06 16:00:00 98 /min University of Arterial blood by [employer] Pulse oximetry Branch Body temperature 2022-04-06 14:41:00 [...] 98 /min University of Arterial blood by [employer] Pulse oximetry Branch Body temperature 2022-01-19 22:19:00 [...] 99 /min University of Arterial blood by [facility] Pulse oximetry [place] Respiratory rate 2021-12-30 16:21:00 18 /min [facility] Body weight 2021-12-30 08:27:00 60.464 kg [facility] BMI 2021-12-30 08:27:00 23.61 kg/m2 [facility] Body height 2021-12-29 01:29:00 160 cm [facility] Procedures Procedure Date / Time Performing Clinician Source Performed XR CHEST 1 VW 2022-04-06 14:51:50 Diya Chowdhury [facility] LIPASE 2022-04-06 14:42:00 Luciana [facility] TROPONIN I 2022-04-06 14:42:00 Diya Chowdhury [facility] COMP. METABOLIC PANEL 2022-04-06 14:42:00 Diya Chowdhury [facility] ([id number] CBC WITH DIFF 2022-04-06 14:42:00 Diya Chowdhury [facility] PROTHROMBIN TIME / INR 2022-04-06 14:42:00 [facility] 2022-04-06 14:42:00 Diya Chowdhury [facility] LACTIC ACID WHOLE BLOOD 2022-01-20 00:22:00 Leticia Hameed [facility] URINE DRUG (IMMUNOASSAY) 2022-01-19 23:10:00 Leticia Hameed [facility] SCREEN URINALYSIS 2022-01-19 23:10:00 Leticia Hameed [facility] TROPONIN I 2022-01-19 23:00:00 Leticia Hameed [facility] COMP. METABOLIC PANEL 2022-01-19 23:00:00 Leticia Hameed [facility] ([id number] LITHIUM 2022-01-19 23:00:00 Leticia Hameed [facility] ETHANOL 2022-01-19 23:00:00 Leticia Hameedge [facility] CBC WITH DIFF 2022-01-19 23:00:00 Leticia Hameed [facility] COVID-19 (ID NOW RAPID 2022-01-19 23:00:00 Leticia Hameed [facility] TESTING) Medical Branch CT HEAD WO CONTRAST 2022-01-19 22:49:00 Leticia Hameed [facility] ty [facility] XR CHEST 1 VW 2022-01-19 22:41:00 Leticia Hameed [facility] POCT GLUCOSE (AUTOMATED) 2022-01-19 22:25:00 Leticia Hameed [facility] POCT GLUCOSE (AUTOMATED) 2021-12-30 21:55:00 Jessica Prado [facility] POCT GLUCOSE (AUTOMATED) 2021-12-30 16:21:00 Jessica Prado [facility] POCT GLUCOSE (AUTOMATED) 2021-12-30 12:30:00 Jessica Prado [facility] HEPATIC FUNCTION PANEL 2021-12-30 09:28:00 Maira Gaitan [facility] ([id number]) (ALB,T.PRO,[facility] T,BU/BC,ALT,AST,ALK PHOS) POCT GLUCOSE (AUTOMATED) 2021-12-30 02:11:00 Jessica Prado [facility] POCT GLUCOSE (AUTOMATED) 2021-12-29 21:41:00 Jessica Prado [facility] POCT GLUCOSE (AUTOMATED) 2021-12-29 16:37:00 Jessica Prado [facility] TRANSTHORACIC ECHO (TTE) 2021-12-29 13:05:00 Jessica Prado [facility] W/ CONTRAST Medical [facility] POCT GLUCOSE (AUTOMATED) 2021-12-29 12:41:00 Jessica Prado [facility] TROPONIN I 2021-12-29 09:42:00 Jessica Prado [facility] TROPONIN I 2021-12-29 04:55:00 Eve [facility] CT HEAD WO CONTRAST 2021-12-28 21:18:22 Pia Renteria [facility] AMMONIA, PLASMA 2021-12-28 21:00:00 Pia Renteria [facility] COVID-19 (ID NOW RAPID 2021-12-28 20:42:00 Dexter [facility] TESTING) Medical Branch LAB ONLY COVID 2021-12-28 20:42:00 Pia Renteria [facility] INTERPRETATION [facility] URINE DRUG (IMMUNOASSAY) 2021-12-28 20:42:00 Pia Renteria [facility] DRUG [facility] SCREEN W/O REFLEX URINALYSIS 2021-12-28 20:40:00 [facility]MIN[facility] PRO-BNP 2021-12-28 20:40:00 Pia Renteria [facility] TROPONIN I 2021-12-28 20:40:00 [facility] THYROID STIMULATING 2021-12-28 20:40:00 Jessica Prado [facility] HORMONE [facility] COMP. METABOLIC PANEL 2021-12-28 20:40:00 Pia Renteria [facility] ([id number]) [facility] LIPID PANEL ([id number])(TOTAL 2021-12-28 20:40:00 Demetrius Langford [facility] TRIGLYCERIDES, HDL) ETHANOL 2021-12-28 20:40:00 Demetrius Langford [facility] CBC WITH DIFF 2021-12-28 20:40:00 Dexter [facility] GLYCOSYLATED HEMOGLOBIN 2021-12-28 20:40:00 Eve [facility] (A1C) [facility] PROTHROMBIN TIME / INR 2021-12-28 20:40:00 Pia Renteria [facility] XR CHEST 1 VW 2021-12-28 20:16:00 [facility] ECG ROUTINE & RHYTHM 2021-12-28 20:04:59 Pia Renteria [facility] Encounters Start End Encounter Admission Attending Care Care Encounter Source Date/Time Date/Time Type Type Clinicians Facility Department ID 2021-09-17 Inpatient [facility] [id number] [facility] 16:45:00 35 2020-06-06 Inpatient [facility] [id number] [facility] 16:07:00 05 2020-06-06 Inpatient [facility] [id number] [facility] 06:20:00 77 2020-06-05 Inpatient [facility] [id number] [facility] 19:35:00 25 2020-05-23 Inpatient [facility] [id number] [facility] 19:53:00 39 2020-05-23 Inpatient [facility] [id number] [facility] 19:53:00 39 2022-04-06 2022-04-06 Emergency X [facility] ERT [id number] Univers 09:38:00 11:42:00 DIYA rahman [facility] 2022-04-06 2022-04-06 Emergency Luciana [facility] [id number] Univers 09:38:00 11:42:00 Diya OTTO [id number] i ty stacey MARTINI 4.2.7.2.686 [facility] [id number] [address] 2022-03-07 2022-03-07 Emergency [facility] [id number] [facility] 12:38:00 12:38:00 74 2022-03-07 2022-03-07 Emergency Emergency Fidel Cuellar [facility] [id number] [facility] 12:38:00 12:38:00 74 2022-01-19 2022-01-19 Emergency X [facility]KA [facility] ERT [id number] Univers 17:18:00 22:00:00 DIRK rahman [facility] 2022-01-19 2022-01-19 Emergency Leticia Hameed [facility] 1.2.840. [id number] Univers 17:18:00 22:00:00 Dirk Yarbrough [id number] ity stacey MARTINI 4.2.7.2.686 [facility] [id number] [facility] 084 Branch 2021-12-31 2021-12-31 Transition EDMUNDO Port[place] [id number] Univers 00:00:00 00:00:00 of Care Faye RANKIN [id number] ity of RAMON 4.2.7.2.686 [facility] [id number] [facility] 403 Branch 2021-12-28 2021-12-30 Inpatient X EVE [facility] [id number] Univers 14:53:00 17:42:00 JESSICA ity of [facility] 2021-12-28 2021-12-30 Hospital Pia Renteria [facility] 1.2.840. 114 [id number] Univers 14:53:00 17:42:00 Encounter Jessica Prado [id number] ity of VINI 4.2.7.2.686 [facility] [id number] [facility] 081 Branch 2021-09-17 2021-09-17 Emergency [facility] [id number] [facility] 16:47:00 16:47:00 35 2020-06-06 2020-06-06 Emergency [facility] [id number] [facility] 16:07:00 16:07:00 05 Results Test Description Test Time Test Comments Results Result Comments Source TROPONIN I 2022-04-06 15:15:32 Test Item Value Reference Range Interpretation Comme nts TROPONIN I (test code = 0.007 ng/mL See_Comment [Au tomated message] The 9139299168) system which ge nerated this result tra [...] biotin. Lab Interpretation Normal (test code = 08577-7) [facility] 15:08:29 Test Item Value Reference Range Interpretation Comments APTT Patient (test See_Comment [Automat ed code = 3173-2) message] The system which generated this result transmitted reference range : 23 - 38 Seconds . The reference range was not used to interpr et this result as normal/abnormal . JUAN ALBERTO (test code = JUAN ALBERTO) [facility] patient population mean normal value for aPTT is 30 seconds. Lab Interpretation Normal (test code = 32691-1) [facility] Center[facility] TIME / [id number] 15:06:28 Test Item Value Reference Range Interpretation [...] tions. Lab Interpretation (test Normal code = 85102-9) [facility]OLIC PANEL (00562)2022-04-06 15:03:31 Test Item Value Reference Range Interpretation Comments NA (test code = 136 mmol/L 135-145 5769761810) K (test code = 5.0 mmol/L 3.5-5 0940626522) CL (test code = 104 mmol/L 98-108 0940419269) CO2 TOTAL (test code = 21 mmol/L 23-31 L 3632150008) AGAP (test code = 2-16 9925985866) BUN (test code = 11 mg/dL 7-23 2704134038) GLUCOSE (test code = 162 mg/dL 70-110 H 9253144395) CREATININE (test code = 0.52 mg/dL 0.6-1.25 L 3652354606) TOTAL BILI (test code = 1.0 mg/dL 0.1-1.5 7186963205) CALCIUM (test code = 9.3 mg/dL 8.6-10.6 1937678749) T PROTEIN (test code = 7.4 g/dL 6.3-8.2 6879826577) ALBUMIN (test code = 4.4 g/dL 3.5-5 8876937366) ALK PHOS (test code = 134 U/L 34-122 H 7328070620) ALTv (test code = 17 U/L 5-50 1742-6) AST(SGOT) (test code = 38 U/L 13-40 3617648628) eGFR (test code = mL/min/1.73m2 0687914299) JUAN ALBERTO (test code = JUAN ALBERTO) [...] tests). Lab Interpretation Abnormal (test code = 01479-7) [facility] CenterLIP[facility], [id number] 15:03:31 Test Item Value Reference Range Interpretation Comments LIPASE (test code = 9923588587) 29 U/L 0-220 Lab Interpretation (test code = Normal 25454-5) [facility] Center[facility] WITH [id number] 14:51:49 Test Item Value Reference Range Interpretation [...] RDW-SD (test code = 45.9 fL 38.5-51.6 73210-4) RDW-CV (test code = 13.3 % 12.1-15.4 788-0) PLT (test code = See_Comment [Automated 777-3) message] The sy stem which generated this result transmitted reference range : 150 - 328 10*3/ ?L. The reference r elba was not used to interpret this result as normal/abnormal . MPV (test code = 8.4 fL 9.8-13 L 41820-7) NRBC/100 WBC (test See_Comment [Automat ed code = 9098639640) message] The system which generated this result transmitted reference range : 0.0 - 10.0 /100 WBCs. The refer ence range was not u sed to interpret th is result as normal/abnormal . NRBC x10^3 (test code See_Comment [Auto mated = 4183601376) message] The s ystem which generated this result transmitted reference range : 10*3/?L. The reference range was not used to interpret this result as normal/abnormal . GRAN MAT (NEUT) % 63.0 % (test code = 770-8) IMM GRAN % (test code 0.50 % = 2821839502) LYMPH % (test code = 25.2 % 736-9) MONO % (test code = 9.8 % 5905-5) EOS % (test code = 0.3 % 713-8) BASO % (test code = 1.2 % 706-2) GRAN MAT x10^3(ANC) 3.73 10*3/uL 1.99-6.95 (test code = 3182267685) IMM GRAN x10^3 (test 0.03 10*3/uL 0-0.06 code = 0858179570) LYMPH x10^3 (test code 1.49 10*3/uL 1.09-3.23 = 731-0) MONO x10^3 (test code 0.58 10*3/uL 0.36-1.02 = 742-7) EOS x10^3 (test code = 0.06-0.53 L 711-2) BASO x10^3 (test code 0.07 10*3/uL 0.01-0.09 = 704-7) Lab Interpretation Abnormal (test code = 89899-3) [facility] CenterUA, Urinalysis Rflx Cult/[id number] 13:53:00 Test Item Value Reference Range Interpretation Comments Color,Urine (test code = UCOL) Yellow Yellow Clarity,Urine (test code = Cloudy Clear A UCLAR) Ph, Urine (test code = UPH) 7.5 5.0-9.0 N Specific [place],Urine (test 1.025 1.005-1.030 N code = USG) [...] mg/dL Negative code = ULEU) UF REFLEXDrug Screen,[id number] 13:53:00 Test Item Value Reference Range Interpretation [...] code = UPROP) Complete Blood Count Auto [id number] 12:58:00 Test Item Value Reference Range Interpretation [...] = NRBCP) 0 % Coronavirus PCR, COVID19 [id number] 12:58:00 Test Item Value Reference Range Interpretation Comments Coronavirus PCR, COVID19 Rapid (test code = SARSCOV2) Coronavirus PCR, COVID19 Reference Range: Rapid (test code = Negative DZBUGYI46.1) SARS-CoV-2 PCR Result: Negative by RT-PCR (test code = SARS-CoV-2 PCR Result:) COVID-19 Status: AsymptomaticComprehensive Metabolic [id number] 12:58:00 Test Item Value Reference Range Interpretation [...] 144 U/L 46-116 H = ALP) Ethanol [id number] 12:58:00 Test Item Value Reference Range Interpretation Comments Ethanol (test code < 3 mg/dL The pharm acological = ETOH) response to blo od alcohol levels mayvary from individual to i ndividual. The fatal surinder ntrationhas been reported t o be >400mg/dL. [id number] 01:47:56 Test Item Value Reference Range Interpretation Comments [place] (test code = 0.7 mmol/L 0.6-1.2 6520060591) JUAN ALBERTO (test code = JUAN ALBERTO) Toxic Range: ? Greater than 1.2 mmol/L Lab Interpretation (test Normal code = 16415-0) [facility] CenterTRREG[facility] FLORENCESHAKIRAN [id number] 00:26:53 Test Item Value Reference Interpretation Comments Range TROPONIN I (test 0.002 ng/mL See_Comment [Automated code = 4575824249) message] The system which generated this result [...] biotin. Lab Interpretation Normal (test code = 16492-2) 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 METABOLIC PANEL (61784) 2022-01-20 00:16:16 Test Item Value Reference Range Interpretation Comments NA (test code = 137 mmol/L 135-145 8485467226) K (test code = 4.5 mmol/L 3.5-5 0555507083) CL (test code = 103 mmol/L 98-108 6984061285) CO2 TOTAL (test code = 26 mmol/L 23-31 9129643446) AGAP (test code = 2-16 4303200687) BUN (test code = 10 mg/dL 7-23 5372678753) GLUCOSE (test code = 121 mg/dL 70-110 H 3019158353) CREATININE (test code = 0.65 mg/dL 0.6-1.25 7274881050) TOTAL BILI (test code = 0.8 mg/dL 0.1-1.9 2221725967) CALCIUM (test code = 11.4 mg/dL 8.6-10.6 H 0988523595) T PROTEIN (test code = 7.2 g/dL 6.3-8.2 1541667501) ALBUMIN (test code = 4.6 g/dL 3.5-5 9791820212) ALK PHOS (test code = 112 U/L 34-122 1201522976) ALTv (test code = 19 U/L 5-50 1742-6) AST(SGOT) (test code = 26 U/L 13-40 4018286174) eGFR (test code = mL/min/1.73m2 3525326812) JUAN ALBERTO (test code = JUAN ALBERTO) [...] tests). Lab Interpretation Abnormal (test code = 10601-3) [facility] WITH [id number] 23:43:54 Test Item Value Reference Range Interpretation Comments WBC (test code = See_Comment [Automated 0990-2) message] The sy stem which generated this [...] RDW-SD (test code = 44.0 fL 38.5-51.6 97156-7) RDW-CV (test code = 12.6 % 12.1-15.4 788-0) PLT (test code = See_Comment [Automated 777-3) message] The sy stem which generated this result transmitted reference range : 150 - 328 10*3/ ?L. The reference r elba was not used to interpret this result as normal/abnormal . MPV (test code = 9.1 fL 9.8-13 L 23322-8) NRBC/100 WBC (test See_Comment [Automat ed code = 9633198830) message] The system which generated this result transmitted reference range : 0.0 - 10.0 /100 WBCs. The refer ence range was not u sed to interpret th is result as normal/abnormal . NRBC x10^3 (test code See_Comment [Auto mated = 3923723698) message] The s ystem which generated this result transmitted reference range : 10*3/?L. The reference range was not used to interpret this result as normal/abnormal . GRAN MAT (NEUT) % 69.8 % (test code = 770-8) IMM GRAN % (test code 0.40 % = 9750707874) LYMPH % (test code = 18.0 % 736-9) MONO % (test code = 10.9 % 5905-5) EOS % (test code = 0.1 % 713-8) BASO % (test code = 0.8 % 706-2) GRAN MAT x10^3(ANC) 5.58 10*3/uL 1.99-6.95 (test code = 2196561945) IMM GRAN x10^3 (test 0.03 10*3/uL 0-0.06 code = 3673648033) LYMPH x10^3 (test code 1.44 10*3/uL 1.09-3.23 = 731-0) MONO x10^3 (test code 0.87 10*3/uL 0.36-1.02 = 742-7) EOS x10^3 (test code = 0.06-0.53 L 711-2) BASO x10^3 (test code 0.06 10*3/uL 0.01-0.09 = 704-7) Lab Interpretation Abnormal (test code = 78053-4) [facility] GLUCOSE (AUTOMATED)2022-01-19 22:27:41 Test Item Value Reference Range Interpretation Comments POCT GLU (test code = 8891725633) 123 mg/dL 70-110 H Lab Interpretation (test code = Abnormal 52885-7) [facility] GLUCOSE (AUTOMATED)2021-12-30 22:08:16 Test Item Value Reference Range Interpretation Comments POCT GLU (test code = 2962697268) 167 mg/dL 70-110 H Lab Interpretation (test code = Abnormal 40777-2) [facility] GLUCOSE (AUTOMATED)2021-12-30 16:50:40 Test Item Value Reference Range Interpretation Comments POCT GLU (test code = 1758826847) 154 mg/dL 70-110 H Lab Interpretation (test code = Abnormal 49010-2) [facility] GLUCOSE (AUTOMATED)2021-12-30 12:38:43 Test Item Value Reference Range Interpretation Comments POCT GLU (test code = 1817458317) 164 mg/dL 70-110 H Lab Interpretation (test code = Abnormal 72688-5) [facility] GLUCOSE (AUTOMATED)2021-12-30 02:14:58 Test Item Value Reference Range Interpretation Comments POCT GLU (test code = 3201822878) 220 mg/dL 70-110 H Lab Interpretation (test code = Abnormal 01909-1) [facility] GLUCOSE (AUTOMATED)2021-12-29 21:50:02 Test Item Value Reference Range Interpretation Comments POCT GLU (test code = 5488221978) 191 mg/dL 70-110 H Lab Interpretation (test code = Abnormal 13640-1) [facility] GLUCOSE (AUTOMATED)2021-12-29 20:15:01 Test Item Value Reference Range Interpretation Comments POCT GLU (test code = 3355391718) 163 mg/dL 70-110 H Lab Interpretation (test code = Abnormal 71259-7) [facility]2021-[facility]-29 19:12:22 Test Item Value Reference Range Interpretation Comments Height (test code = in 1585374738) Weight (test code = lbs 0899277819) Systolic BP (test code = mmHg 7129911548) Diastolic BP (test code mmHg = 0627777961) Heart Rate (test code = bpm 3969679864) BSA (test code = 1.62 m2 7976733004) Ao root annulus (test 2.45 cm code = 6233667820) Ao root diam (test code 2.45 cm = 3674991708) Aortic root (test code = 2.45 cm 8972171362) ACS (test code = 1.66 cm 2268629976) LA size (test code = 3.2 cm 1164622542) LVOT diameter (test code 1.95 cm = 5099804738) LVIDD (test code = 3.60 cm 3721502830) IVS (test code = 0.94 cm 7598940418) Interventricular Septum 0.94 cm Diastolic Thickness by 2D (test code = 9176859) LVPWD (test code = 0.80 cm 8238594210) PW (test code = 0.80 cm 0.6-1.3 3401160648) EF(Teich) (test code = 52.80 % 6542680146) LVIDS (test code = 2.60 cm 3986899605) FS (test code = 27 % 2788504877) EF - 2D (test code = 52.80 % 60794760) LAV(MOD-sp4) (test code 16.80 mL = 5502349344) MV Peak E Jovany (test code 46.1 cm/s = 7476467216) E wave decelartion time 0.31 s (test code = 2866117749) MV Peak A Jovany (test code 58.1 cm/s = 4556170143) E/A ratio (test code = ratio 1854525080) MV E/e' septal (test 5.7 cm/s code = 5947952753) Tapse (test code = 1.60 cm 0950330636) LVOT stroke volume (test 52.10 cm3 code = 9110270393) LVOT peak jovany (test code 110.6 cm/s = 7008454344) LVOT mn grad (test code mmHg = 1179017540) AV LVOT peak gradient mmHg (test code = 4125368946) LVOT peak VTI (test code 17.4 cm = 6078257710) LV V1 mean (test code = 66.10 cm/s 8253127787) Aortic valve mean 73.0 cm/s velocity (test code = 0732216752) Ao peak jovany (test code = 124.6 cm/s 2737346977) Ao VTI (test code = 18.6 cm 2217743401) AV area by cont VTI 2.8 cm2 (test code = 9445976586) AV area peak jovany (test 2.7 cm2 code = 0403745398) Ao max PG (test code = 6.20 mm[Hg] 8770689889) AV peak gradient (test mmHg code = 8499565521) AV valve area (test code 2.80 cm2 = 9722809555) AV mean gradient (test mmHg code = 9423685571) Radiology Study observation (narrative) (test code = 53194-4) JUAN ALBERTO (test code = JUAN ALBERTO) [...] mL of Lumason ultrasound enhancing agent used. [facility]2021-12-29 12:50:31 Test Item Value Reference Range Interpretation Comments POCT GLU (test code = 0551307804) 141 mg/dL 70-110 H Lab Interpretation (test code = Abnormal 41270-9) [facility] CenterTroponin [id number] 10:38:31 Test Item Value Reference Interpretation Comments Range TROPONIN I (test 0.003 ng/mL See_Comment [Automated code = 3808588033) message] The system which generated this result [...] biotin. Lab Interpretation Normal (test code = 16474-5) [facility] CenterLIPID PANEL (46346)(TOTAL CHOLESTEROL, TRIGLYCERIDES, HDL)2021-12-29 05:56:47 Test Item Value Reference Range Interpretation Comments CHOL (test code = 168 mg/dL 120-200 0197044030) HDL (test code = 102 mg/dL See_Comment [Automated message] 3257954596) The system Moz generated this result transmit naomie reference range : >=40. The refer ence range was not u sed to interpret th is result as normal/abnormal . HDLC RATIO (test code = See_Comment [Au tomated message] 6710263401) The system Moz generated this result transmit naomie reference range : <=5.0. The refe rence range was not u sed to interpret th is result as normal/abnormal . TRIG (test code = 55 mg/dL 30-170 1690234135) LDL CHOL (test code = 55 mg/dL See_Comment [Auto mated message] 61829-8) The system Moz generated this result transmit naomie reference range : <=160. The refe rence range was not u sed to interpret th is result as normal/abnormal . VLDL (test code = 11 mg/dL 5-60 3263996094) Lab Interpretation (test Normal code = 86400-0) [facility] CenterThyroid Stimulating Hormone (TSH)2021-12-29 05:40:29 Test Item Value Reference Range Interpretation Comments TSH (test code = See_Comment Biotin has been 5972331717) reported to cau se a negative bias, interpret resul ts relative to pat ient's use of biotin. [Automated mess age] The system Moz generated this result transmitted ref erence range: 0.45 - 4 .70 mIU/L. The refe rence range was not u sed to interpret this result as normal/abnor mal. Lab Interpretation (test Normal code = 83068-0) [facility] CenterTroponin [id number] 05:34:29 Test Item Value Reference Interpretation Comments Range TROPONIN I (test 0.006 ng/mL See_Comment [Automated code = 1912314875) message] The system which generated this result [...] biotin. Lab Interpretation Normal (test code = 15424-4) [facility] CenterETHANOL2022-07-10 04:43:01 ALCOHOL<10mg/dL12/28/2021 11:43 PM [facility] Greater than or equal to 80 mg/dL. NOTE: Whole blood values are approximately 10% to 15% lower than serum and plasma.[facility] CenterGlycosylated Hemoglobin (A1C)2021-12-29 01:51:44 Test Item Value Reference Range Interpretation Comments HGB A1C (test code = 6.5 % 4-5.7 H 4548-4) JUAN ALBERTO (test code = JUAN ALBERTO) Reference RangesNormal: <5.7%Prediabetes: 5.7 - 6.4%Diabetes: > 6.5% Lab Interpretation (test Abnormal code = 65070-1) [facility] CenterTROPONIN [id number] 21:26:50 Test Item Value Reference Interpretation Comments Range TROPONIN I (test 0.002 ng/mL See_Comment [Automated code = 8355317143) message] The system which generated this result [...] biotin. Lab Interpretation Normal (test code = 43358-7) [facility] CenterN-TERMINAL [id number] 21:23:29 Test Item Value Reference Range Interpretation Comments NT-proBNP (test code 41 pg/mL See_Comment [Autom ated = 7822953130) message] The system which generated this result transmitted reference range : <=125. The reference range was not used to interpret this result as normal/abnormal . JUAN ALBERTO (test code = JUAN ALBERTO) Biotin has been reported to cause a negative bias, interpret results relative to patient's use of biotin. Lab Interpretation Normal (test code = 27612-9) [facility] CenterAMMONIA, [id number] 21:20:38 Test Item Value Reference Range Interpretation Comments AMMONIA (test code = 9-33 L Slight hemolysis 1491559747) Lab Interpretation (test Abnormal code = 49444-8) [facility] CenterCOMP. METABOLIC PANEL (34501)2021-12-28 21:08:48 Test Item Value Reference Range Interpretation Comments NA (test code = 137 mmol/L 135-145 7676564291) K (test code = 4.5 mmol/L 3.5-5 0349985904) CL (test code = 97 mmol/L 98-108 L 2681745539) CO2 TOTAL (test code = 29 mmol/L 23-31 2216190311) AGAP (test code = 2-16 9776633869) BUN (test code = 10 mg/dL 7-23 7042604138) GLUCOSE (test code = 188 mg/dL 70-110 H 9546869391) CREATININE (test code = 0.58 mg/dL 0.6-1.25 L 1170060559) TOTAL BILI (test code = 0.8 mg/dL 0.1-1.1 1569581481) CALCIUM (test code = 10.5 mg/dL 8.6-10.6 3534179846) T PROTEIN (test code = 7.6 g/dL 6.3-8.2 8483153323) ALBUMIN (test code = 4.5 g/dL 3.5-5 7854840808) ALK PHOS (test code = 107 U/L 34-122 6006775546) ALTv (test code = 66 U/L 5-50 H 1742-6) AST(SGOT) (test code = 96 U/L 13-40 H 4853331036) eGFR (test code = mL/min/1.73m2 7986718725) JUAN ALBERTO (test code = JUAN ALBERTO) [...] tests). Lab Interpretation Abnormal (test code = 29283-8) [facility] CenterPROTHROMBIN TIME / [id number] 21:01:25 Test Item Value Reference Range Interpretation Comments PROTIME PATIENT (test See_Comment [Auto mated message] code = 5964-2) The system [employer]Fire generated this result transmitted ref erence range: 12.0 - 1 4.7 Seconds. The re ference range was not u sed to interpret this result as normal/abnor mal. INR (test code = 6301-6) Nor mal INR <1.1; Warfarin Therap eutic range 2.0 to 3. 0 or 2.5 to 3.5, dep ending upon the indica tions. Lab Interpretation (test Normal code = 67197-1) [facility] WITH [id number] 20:54:03 Test Item Value Reference Range Interpretation [...] RDW-SD (test code = 47.8 fL 38.5-51.6 84763-3) RDW-CV (test code = 13.3 % 12.1-15.4 788-0) PLT (test code = See_Comment [Automated 777-3) message] The sy stem which generated this result transmitted reference range : 150 - 328 10*3/ ?L. The reference r elba was not used to interpret this result as normal/abnormal . MPV (test code = 8.6 fL 9.8-13 L 87982-0) NRBC/100 WBC (test See_Comment [Automat ed code = 2710100177) message] The system which generated this result transmitted reference range : 0.0 - 10.0 /100 WBCs. The refer ence range was not u sed to interpret th is result as normal/abnormal . NRBC x10^3 (test code See_Comment [Auto mated = 3155682870) message] The s ystem which generated this result transmitted reference range : 10*3/?L. The reference range was not used to interpret this result as normal/abnormal . GRAN MAT (NEUT) % 64.1 % (test code = 770-8) IMM GRAN % (test code 0.40 % = 5975259277) LYMPH % (test code = 16.6 % 736-9) MONO % (test code = 17.2 % 5905-5) EOS % (test code = 0.2 % 713-8) BASO % (test code = 1.5 % 706-2) GRAN MAT x10^3(ANC) 3.47 10*3/uL 1.99-6.95 (test code = 3796174972) IMM GRAN x10^3 (test 0-0.06 code = 7827321850) LYMPH x10^3 (test code 0.90 10*3/uL 1.09-3.23 L = 731-0) MONO x10^3 (test code 0.93 10*3/uL 0.36-1.02 = 742-7) EOS x10^3 (test code = 0.06-0.53 L 711-2) BASO x10^3 (test code 0.08 10*3/uL 0.01-0.09 = 704-7) Lab Interpretation Abnormal (test code = 80840-2) [facility] CenterEthanol [id number] 21:08:00 Test Item Value Reference Range Interpretation Comments Ethanol (test code < 3 mg/dL The pharm acological = ETOH) response to blo od alcohol levels mayvary from individual to i ndividual. The fatal surinder ntrationhas been reported t o be >400mg/dL. Complete Blood Count Auto [id number] 17:33:00 Test Item Value Reference Range Interpretation [...] = NRBCP) 0 % UA, Urinalysis Rflx Cult/[id number] 17:33:00 Test Item Value Reference Range Interpretation Comments Color,Urine (test code = UCOL) Dark Yellow Yellow A Clarity,Urine (test code = Clear Clear UCLAR) Ph, Urine (test code = UPH) 6.5 5.0-9.0 N Specific Todd,Urine (test 1.015 1.005-1.030 N code = USG) [...] mg/dL Negative A code = ULEU) Urine [id number] 17:33:00 Test Item Value Reference Range Interpretation Comments RBC,Urine (test code = URBCUF) None Seen /HPF 0-2 WBC,Urine (test code = UWBCUF) 0-5 /HPF 0-5 Epithelial Cell,Urine (test 0-5 /HPF 0-5 code = UECUF) Casts,Urine (test code = None Seen /LPF None Seen UCASTUF) Bacteria,Urine (test code = None Seen /hpf None Seen UBACTUF) Drug Screen,[id number] 17:33:00 Test Item Value Reference Range Interpretation [...] Urine (test code = UPROP) Comprehensive Metabolic [id number] 17:33:00 Test Item Value Reference Range Interpretation [...] 46-116 N = ALP) Sars-CoV-2/FLU A/B RSV [id number] 17:31:00 Test Item Value Reference Range Interpretation [...] (test code = SARS-CoV-2 PCR Result:) Drug Screen,[id number] 17:20:00 Test Item Value Reference Range Interpretation [...] code = UPROP) Complete Blood Count Auto [id number] 17:14:00 Test Item Value Reference Range Interpretation [...] code = NRBCP) 0 % Comprehensive Metabolic [id number] 17:14:00 Test Item Value Reference Range Interpretation [...] 207 U/L 46-116 H = ALP) Ethanol [id number] 17:14:00 Test Item Value Reference Range Interpretation Comments Ethanol (test code = ETOH) 192 mg/dL Complete Blood Count Auto [id number] 20:20:00 Test Item Value Reference Range Interpretation [...] code = NRBCP) 0 % Comprehensive Metabolic [id number] 20:20:00 Test Item Value Reference Range Interpretation [...] 189 U/L 46-116 H = ALP) Ethanol [id number] 20:20:00 Test Item Value Reference Range Interpretation Comments Ethanol (test code = ETOH) 10 mg/dL Sars-CoV-2/FLU A/B RSV [id number] 20:20:00 Test Item Value Reference Range Interpretation [...] = Amplification SARS-CoV-2 PCR Result:) UA, Urinalysis [id number] 20:20:00 Test Item Value Reference Range Interpretation Comments Color,Urine (test code = Yellow Y UCOL) Clarity,Urine (test code = Clear Clear UCLAR) PH,Urine (test code = 7.0 5.5-8.5 UPH.XX) Specific Todd,Urine 1.020 1.005-1.030 N (test code = USG) [...] cells/uL Negative (test code = ULEU) Drug Screen,[id number] 20:20:00 Test Item Value Reference Range Interpretation [...] code = UTHCS) CT head/brain wo con [facility] [address] [place] [address] Patient Name: Walt Velazquez Medical Record#: [id number] Address: Homeless City/State/Zip: [place] [address]: Vinnie Navarro MD Phone: Insurance: Self Pay /Age/Sex: 1970/50/M Admit/Reg Date: 09/17/[address]: Vinnie Navarro MD Location: [facility]/ PCP: Pcp-Md KERWIN Stiles Date of Service: 09/17/21 Order (s): CT head/brain wo con CPT Code: 39661 Report Number: [id number] Reason for Exam: Altered mental status Location [...]
[2022-06-24 02:56] LABS: Urine Blood Negative (Negative); Urine Glucose 1+ (Negative); Urine Protein Negative (Negative); Urine Specific Gravity 1.025 (1.005-1.030); Urine pH 5.5 (5.0-7.0)
[2022-06-24 03:22] LABS: Barbiturates NEGATIVE (NEGATIVE); Benzodiazepines NEGATIVE (NEGATIVE); Cocaine NEGATIVE (NEGATIVE); METHAMPHETAM NEGATIVE (NEGATIVE); Methadone NEGATIVE (NEGATIVE); Opiates NEGATIVE (NEGATIVE); Phencyclidine NEGATIVE (NEGATIVE); THC Cannibis POSITIVE (NEGATIVE)
[2022-06-24 03:22] LABS: ALT/SGPT 20 U/L (16-61); AST/SGOT 25 U/L (15-37); Albumin 3.4 g/dL (3.4-5.0); Alkaline Phosphatase 119 U/L (45-117); BUN Blood Urea Nitrogen 9 mg/dL (7-18); Bicarbonate 27 mmol/L (21-32); Bilirubin Total 0.2 mg/dL (0.2-1.0); Glomerular Filtration Rate 111 ml/min (=/>90); Glucose Level 176 mg/dL (74-106); Potassium 4.2 mmol/L (3.5-5.1); Sodium Level 142 mmol/L (136-145); Troponin High Sensitivity 15.2 pg/mL (<58.9)
[2022-06-24] MEDS ORDERED: THIAMINE 200 MG/2 ML INJ ONE (03:30)
[2022-06-24] MEDS ORDERED: FOLIC ACID 5 MG/ML VIAL ONE (03:31)
[2022-06-24] MEDS ORDERED: MULTIVITAMINS 10 ML VIAL (INJ) IV ONE (03:31)
[2022-06-24] MEDS ORDERED: NA CHLORIDE 0.9% 1,000 ML ONE (03:33)
[2022-06-24 03:40] LABS: Bilirubin Direct < 0.1 mg/dL (0-0.2)
--- NOTE | 2022-06-24 04:03 | ER ---
Nurse's Notes [facility] Name: Walt Velazquez Age: 51 yrs Sex: Male : 1970 Arrival Date: 06/23/2022 Time: 21:03 Bed 26 Private MD: Diagnosis: Alcohol abuse with intoxication;Weakness Presentation: 06/23 21:28 Chief complaint: Patient states: "My blood pressures a little high I can see it in my vc1 skin.". Coronavirus screen: Vaccine status: Patient reports being unvaccinated. Ebola Screen: No symptoms or risks identified at this time. Initial Sepsis Screen: Does the patient meet any 2 criteria? No. Patient's initial sepsis screen is negative. Does the patient have a suspected source of infection? No. Patient's initial sepsis screen is negative. Risk Assessment: Do you want to hurt yourself or someone else? Patient reports no desire to harm self or others. Onset of symptoms was June 23, 2022. 21:28 Method Of Arrival: EMS: [facility] vc1 21:28 Acuity: LATASHA 5 vc1 Triage Assessment: 06/24 02:58 General: Appears. vc1 Historical: - Allergies: 06/23 21:31 No Known Allergies; vc1 - Home Meds: 21:31 None [Active]; vc1 - PMHx: 21:31 Alcoholism; Bipolar II; Hypertensive disorder; Parkinsons; Seizure; vc1 - PSHx: 21:31 None; vc1 - Immunization history:: Client reports having NOT received the Covid vaccine. - Social history:: Smoking status: Patient denies any tobacco usage or history of. Screenin:32 [facility] ED Fall Risk Assessment (Adult) History of falling in the last 3 months, vc1 including since admission Yes- single mechanical fall (1 pt) Confusion or Disorientation Yes (5 pts) Intoxicated or Sedated No (0 pts) Impaired Gait Yes (1 pt) Mobility Assist Device Used No (0 pt) Altered Elimination No (0 pt) Score/Fall Risk Level 3 or more points = High Risk Maintained a safe environment, Educated pt \\T\\ family on fall prevention, incl call for assistance when getting out of bed, Assessed \\T\\ reinforced patient's understanding of fall precautions. Abuse screen: Denies threats or abuse. Nutritional screening: No deficits noted. Tuberculosis screening: No symptoms or risk factors identified. Assessment: 06/24 03:39 General: Appears in no apparent distress. slender, Behavior is calm, cooperative. Pain: bb Denies pain. Neuro: Level of Consciousness is awake, alert, obeys commands, Oriented to person, place, situation. Cardiovascular: Capillary refill < 3 seconds Patient's skin is warm and dry. Respiratory: Respiratory effort is even, unlabored, Respiratory pattern is regular. GI: No signs and/or symptoms were reported involving the gastrointestinal system. Derm: Skin is pink, warm \\T\\ dry. Musculoskeletal: Circulation, motion, and sensation intact. 05:15 Reassessment: Patient is alert, oriented x 3, equal unlabored respirations, skin bb warm/dry/pink. pt resting quietly awaiting discharge for completion of IV fluids. 07:09 Reassessment: Patient is alert, oriented x 3, equal unlabored respirations, skin bb warm/dry/pink. pt verbalized understanding of and agrees to plan of care discharge instructions given to pt. Vital Signs: 06/23 21:28 BP 115 / 75; Pulse 76; Resp 16; Temp 97.3; Pulse Ox 100% ; Weight 72.57 kg; Height 5 vc1 ft. 3 in. (160.02 cm); Pain 6/10; 06/24 03:31 BP 111 / 70; Pulse 79; Resp 17; Temp 97.8; Pulse Ox 99% ; Weight 63.5 kg; Height 5 ft. rv1 3 in. (160.02 cm); Pain 8/10; 05:13 BP 107 / 68; Pulse 65; Resp 16 S; Pulse Ox 98% on R/A; bb 06:44 BP 116 / 84; Pulse 84; Resp 18; Temp 97.7; Pulse Ox 94% ; rv1 03:31 Body Mass Index 24.80 (63.50 kg, 160.02 cm) rv1 ED Course: 06/23 21:03 Patient arrived in ED. mw2 21:31 Triage completed. vc1 21:32 Arm band placed on left wrist. vc1 21:35 Deandre Mckeon MD is Attending Physician. [facility] 06/24 03:30 EKG done, by ED staff, reviewed by Deandre Mckeon MD. Inserted saline lock: 20 gauge in bb right forearm, using aseptic technique. 03:39 Patient has correct armband on for positive identification. Bed in low position. Call bb light in reach. Side rails up X2. Pulse ox on. NIBP on. Warm blanket given. 05:16 Candy Panda, RN is Primary Nurse. bb 07:10 No provider procedures requiring assistance completed. IV discontinued, intact, bb bleeding controlled, No redness/swelling at site. Pressure dressing applied. Administered Medications: 03:39 Drug: Banana Bag - (NS 0.9% 1000 ml, foLIC Acid 1 mg, Thiamine 100 mg, Multivitamin 1 bb amp) Route: IV; Rate: 500 ml/min; Site: right forearm; 07:10 Follow up: IV Status: Order to discontinue infusion; IV Intake: 650ml bb Medication: 03:39 VIS not applicable for this client. bb Intake: 07:10 IV: 650ml; Total: 650ml. bb Outcome: 04:02 Discharge ordered by . bridgette 07:10 Discharged to home ambulatory. bb 07:10 Condition: stable 07:10 Discharge instructions given to patient, Instructed on discharge instructions, follow up and referral plans. Demonstrated understanding of instructions, follow-up care. 07:11 Patient left the ED. bb Signatures: Deandre Mckeon MD MD cha Ballard, Brenda, RN RN Rere Gupta mw2 Niecy Roberto RN RN vc1 Sofia Velazquez rv1
--- NOTE | 2022-06-24 04:03 | EDPHYS ---
Physician Documentation [facility] Name: Walt Velazquez Age: 51 yrs Sex: Male : 1970 Arrival Date: 06/23/2022 Time: 21:03 Bed 26 Private MD: ED Physician Deandre Mckeon HPI: 06/24 03:47 This 51 yrs old Male presents to ER via EMS with complaints of weak, drunk. bridgette 03:47 alcohol abuse. Onset: The symptoms/episode began/occurred 2 day(s) ago. Severity of bridgette symptoms: At their worst the symptoms were very mild mild in the emergency department the symptoms. The patient has experienced similar episodes in the past, chronically. Historical: - Allergies: 06/23 21:31 No Known Allergies; vc1 - Home Meds: 21:31 None [Active]; vc1 - PMHx: 21:31 Alcoholism; Bipolar II; Hypertensive disorder; Parkinsons; Seizure; vc1 - PSHx: 21:31 None; vc1 - Immunization history:: Client reports having NOT received the Covid vaccine. - Social history:: Smoking status: Patient denies any tobacco usage or history of. ROS: 06/24 03:48 Constitutional: Negative for fever, chills, and weight loss, Eyes: Negative for injury, bridgette pain, redness, and discharge, ENT: Negative for injury, pain, and discharge, Neck: Negative for injury, pain, and swelling, Cardiovascular: Negative for chest pain, palpitations, and edema, Respiratory: Negative for shortness of breath, cough, wheezing, and pleuritic chest pain, Abdomen/GI: Negative for abdominal pain, nausea, vomiting, diarrhea, and constipation, Back: Negative for injury and pain, : Negative for injury, bleeding, discharge, and swelling, MS/Extremity: Negative for injury and deformity, Skin: Negative for injury, rash, and discoloration, Neuro: Negative for headache, weakness, numbness, tingling, and seizure, Psych: Negative for depression, anxiety, suicide ideation, homicidal ideation, and hallucinations, Allergy/Immunology: Negative for hives, rash, and allergies, Endocrine: Negative for neck swelling, polydipsia, polyuria, polyphagia, and marked weight changes. Exam: 03:48 Constitutional: This is a well developed, well nourished patient who is awake, alert, bridgette and in no acute distress. Head/Face: Normocephalic, atraumatic. Eyes: Pupils equal round and reactive to light, extra-ocular motions intact. Lids and lashes normal. Conjunctiva and sclera are non-icteric and not injected. Cornea within normal limits. Periorbital areas with no swelling, redness, or edema. ENT: Nares patent. No nasal discharge, no septal abnormalities noted. Tympanic membranes are normal and external auditory canals are clear. Oropharynx with no redness, swelling, or masses, exudates, or evidence of obstruction, uvula midline. Mucous membranes moist. Neck: Trachea midline, no thyromegaly or masses palpated, and no cervical lymphadenopathy. Supple, full range of motion without nuchal rigidity, or vertebral point tenderness. No Meningismus. Chest/axilla: Normal chest wall appearance and motion. Nontender with no deformity. No lesions are appreciated. Cardiovascular: Regular rate and rhythm with a normal S1 and S2. No gallops, murmurs, or rubs. Normal PMI, no JVD. No pulse deficits. Respiratory: Lungs have equal breath sounds bilaterally, clear to auscultation and percussion. No rales, rhonchi or wheezes noted. No increased work of breathing, no retractions or nasal flaring. Abdomen/GI: Soft, non-tender, with normal bowel sounds. No distension or tympany. No guarding or rebound. No evidence of tenderness throughout. Back: No spinal tenderness. No costovertebral tenderness. Full range of motion. Male : Normal genitalia with no discharge or lesions. Skin: Warm, dry with normal turgor. Normal color with no rashes, no lesions, and no evidence of cellulitis. MS/ Extremity: Pulses equal, no cyanosis. Neurovascular intact. Full, normal range of motion. Neuro: Awake and alert, GCS 15, oriented to person, place, time, and situation. Cranial nerves II-XII grossly intact. Motor strength 5/5 in all extremities. Sensory grossly intact. Cerebellar exam normal. Normal gait. Psych: Awake, alert, with orientation to person, place and time. Behavior, mood, and affect are within normal limits. 03:48 ECG was reviewed by the Attending Physician. Vital Signs: 06/23 21:28 BP 115 / 75; Pulse 76; Resp 16; Temp 97.3; Pulse Ox 100% ; Weight 72.57 kg; Height 5 vc1 ft. 3 in. (160.02 cm); Pain 6/10; 06/24 03:31 BP 111 / 70; Pulse 79; Resp 17; Temp 97.8; Pulse Ox 99% ; Weight 63.5 kg; Height 5 ft. rv1 3 in. (160.02 cm); Pain 8/10; 05:13 BP 107 / 68; Pulse 65; Resp 16 S; Pulse Ox 98% on R/A; bb 06:44 BP 116 / 84; Pulse 84; Resp 18; Temp 97.7; Pulse Ox 94% ; rv1 03:31 Body Mass Index 24.80 (63.50 kg, 160.02 cm) rv1 MDM: 06/23 21:35 Patient medically screened. [facility] 06/24 03:18 Patient medically screened. [facility] 06/23 21:36 Order name: Acetaminophen; Complete Time: 04:00 [facility] 06/23 21:36 Order name: Basic Metabolic Panel; Complete Time: 04:00 [facility] 06/23 21:36 Order name: ETOH Level; Complete Time: 04:00 [facility] 06/23 21:36 Order name: Hepatic Function; Complete Time: 04:00 [facility] 06/23 21:36 Order name: Salicylate; Complete Time: 04:00 [facility] 06/23 21:36 Order name: Urine Drug Screen; Complete Time: 04:00 [facility] 06/23 21:36 Order name: EKG; Complete Time: 21:37 [facility] 06/23 21:36 Order name: EKG - Nurse/Tech; Complete Time: 03:39 [facility] 06/23 21:36 Order name: Troponin High Sensitivity; Complete Time: 04:00 [facility] 06/24 02:56 Order name: Urine Dipstick-Ancillary; Complete Time: 03:18 [facility] 06/23 21:36 Order name: IV Saline Lock; Complete Time: 03:39 [facility] 06/23 21:36 Order name: Labs collected and sent; Complete Time: 02:58 [facility] 06/23 21:36 Order name: Suicide Screening ([place]); Complete Time: 02:58 [facility] 06/23 21:36 Order name: Urine Dipstick-Ancillary (obtain specimen); Complete Time: 02:58 [facility] EC:48 Rate is 73 beats/min. QRS [place] is Normal. [place] interval is normal. QRS interval is bridgette normal. QT interval is normal. No Q waves. T waves are Normal. No ST changes noted. Clinical impression: Normal ECG and No evidence of ischemia. Interpreted by me. Reviewed by me. Administered Medications: 03:39 Drug: Banana Bag - (NS 0.9% 1000 ml, foLIC Acid 1 mg, Thiamine 100 mg, Multivitamin 1 bb amp) Route: IV; Rate: 500 ml/min; Site: right forearm; 07:10 Follow up: IV Status: Order to discontinue infusion; IV Intake: 650ml bb Disposition Summary: 06/24/22 04:02 Discharge Ordered Location: Home bridgette Problem: new bridgette Symptoms: have improved bridgette Condition: Stable bridgette Diagnosis - Alcohol abuse with intoxication bridgette - Weakness bridgette Followup: bridgette - With: Private Physician - When: 2 - 3 days - Reason: Recheck today's complaints, Continuance of care, Re-evaluation by your physician Discharge Instructions: - Discharge Summary Sheet bridgette - Alcohol Intoxication bridgette - Weakness bridgette - Fatigue bridgette - Alcohol Intoxication, [id number] bridgette - Weakness, [id number] bridgette - Deconditioning bridgette Forms: - Medication Reconciliation Form bridgette - Thank You Letter bridgette - Antibiotic Education bridgette - Prescription Opioid Use bridgette Signatures: Dispatcher [employer] EDMS Deandre Mckeon MD MD cha Ballard, Brenda, RN RN Niecy Espinoza RN RN vc1
[2022-06-24 07:35] VITALS: BP 116/84; TEMP 97.7; O2SAT 94
--- NOTE | 2022-06-24 08:31 | EKG ---
Test Date: 2022-06-24 Test Time: 03:24:40 Toy Maker: RV MEASUREMENT RESULTS: Intervals: Rate: 73 HI: 170 QRSD: 76 QT: 358 QTc: 394 [place]: P: 70 HI: 170 QRS: 62 T: 36 INTERPRETIVE STATEMENTS: Normal sinus rhythm Normal ECG Compared to ECG 06/13/2022 13:06:37 No significant changes Electronically Signed On 06-24-22 08:31:06 RECREATION FACILITIES SUPERVISOR by Asim Thompson
== END 2022-06-24 07:11 | disposition home or self-care (01) ==
LOC: ER 21:00
DX: F10.229 Alcohol dependence with intoxication, unspecified (principal); R53.1 Weakness; G20 Parkinson's disease
CPT/HCPCS: 80048; 80076; 80307; 80320; 80329; 81003; 84484; 93005; 96365; 96366; 99284; J3411; J7030

== ENCOUNTER 2022-08-04 19:10 | Emergency (ER) | payer SELFPAY ==
--- OUTSIDE RECORDS SUMMARY | 2022-08-04 19:17 | XMS REPORT | Continuity of Care Document ---
:1970 Author Organization [facility] t Address [address] [place] [address] Care Team Providers Name Role Phone Pcp-None [...] Policy Number Effective Date Expiration Date S tyrese [facility] [id number] 2021 MCFP 00:00:00 Problems Condition Condition Condition Status Onset [...] 00 No Known DA Active U 2020-1 SJm Drug 2-02 Allergie 00:00: s 00 Trazodon Propensi Active Other - See U nivers e ty to comments 4-17 ity of adverse 00:00: [place] reaction 00 [facility] s Branch TRAZODON DRUG Active Other-Cmnt Univ ers E INGREDI 4-17 ity of 00:00: [place] 00 Medical Branch Social History Social Habit Start Date Stop Date Quantity Comments Source History of Smokes tobacco University of tobacco use daily [facility] Exposure to 2022-03-27 2022-04-06 Unable to assess Univers ity of SARS-CoV-2 00:00:00 09:36:00 [facility] (event) Branch Alcohol intake 2022-01-19 2022-01-19 Current drinker Unive rsity of 00:00:00 00:00:00 of alcohol [facility] (finding) Branch Tobacco use and 2021-12-28 2021-12-28 Smokeless tobacco Un iversity of exposure 00:00:00 00:00:00 non-user [facility] Tobacco Comment 2021-12-28 2021-12-28 1/2 a pack a day Uni versity of 00:00:00 00:00:00 [facility] Sex [birth year] Universit y of 00:00:00 00:00:00 [facility] Smoking Status Start Date Stop Date Source Smokes tobacco daily 2021-12-28 00:00:00 Univers ity of [facility] Medications Ordered Filled Start Stop Current Ordering Indication Dosage Frequency Signature Comments Components Source Medication Medication Date Date Medication? Clinician (SIG) Name Name ketorolac 2021-06 No 15mg 15 mg, Unive rs (TORADOL) 0-16 10-16 Slow IV ity of injection 16:00: 14:50 Push, [place] 15 mg 00 :00 ONCE, 1 Medical dose, On Branch 04/06/22 at 1100, JACIEL ondansetron 2021-06- No 4mg 4 mg, Slow Univers (ZOFRAN 0-16 IV Push, ity of (PF)) 15:45: 14:50 ONCE, 1 [place] injection 4 00 :00 dose, On Medi yudy mg [place] 04/06/22 at 1045, JACIEL oxazepam 2021- No 15mg 15 mg, Univer s (SERAX) 12-31 07-13 Oral, Q12H ity o f capsule 15 06:28: 06:29 [place] 2 [place] 17 :00 doses, Medical First dose Branch on Thu12/31/21 at 0130, Last dose on Thu12/31/21 at 1330, Routine multivitami Yes [id number] 1{tbl} Take 1 Univers n tablet 12-31 [id number] tablet by ity of 00:00: mouth in [place] 00 the Medical morning. Branch thiamine Yes [id number] 100mg Take 1 Univers 100 mg 12-31 [id number] tablet by ity of tablet 00:00: mouth in [place] 00 the Medical morning. [place] aspirin 81 Yes [id number] 81mg Take 1 Univers mg chewable 12-31 [id number] tablet by i ty of tablet 00:00: mouth in [place] 00 the Medical morning. Branch multivitami 2021-0 Yes [id number] 1{tbl} Take 1 Univers n tablet 7-12 [id number] tablet by ity of 00:00: mouth in [place] 00 the Medical morning. Branch thiamine 2021-0 Yes [id number] 100mg Take 1 Univers 100 mg 7-12 [id number] tablet by ity of tablet 00:00: mouth in [place] 00 the Medical morning. Branch aspirin 81 2021-0 Yes [id number] 81mg Take 1 Univers mg chewable 7-12 [id number] tablet by i ty of tablet 00:00: mouth in [place] 00 the Medical morning. Branch multivitami 0 Yes [id number] 1{tbl} Take 1 Univers n tablet 7-12 [id number] tablet by ity of 00:00: mouth in [place] 00 the Medical morning. Branch thiamine 2021-0 Yes [id number] 100mg Take 1 Univers 100 mg 7-12 [id number] tablet by ity of tablet 00:00: mouth in [place] 00 the Medical morning. Branch aspirin 81 2021-0 Yes [id number] 81mg Take 1 Univers mg chewable 7- 657105 tablet by i ty of tablet 00:00: mouth in [place] 00 the Medical morning. Branch multivitami 0 Yes [id number] 1{tbl} Take 1 Univers n tablet 7-12 063492 tablet by ity of 00:00: mouth in [place] the Medical morning. Branch thiamine 0 Yes [id number] 100mg Take 1 Univers 100 mg 7-12 [id number] tablet by ity of tablet 00:00: mouth in [place] the Medical morning. Branch aspirin 81 0 Yes [id number] 81mg Take 1 Univers mg chewable 7- 397762 tablet by i ty of tablet 00:00: mouth in [place] 00 the Medical morning. Branch foLIC acid 2021- No [id number] 1mg Take 1 Univers 1 mg tablet 12-31 050630 tablet by ity of 00:00: 04:59 mouth in [place] 00 :00 the Medical morning Branch for 30 days. foLIC acid 2021-0 2021- No [id number] 1mg Take 1 Univers 1 mg tablet 12-31 [id number] tablet by ity of 00:00: 04:59 mouth in [place] 00 :00 the Medical morning Branch for 30 days. foLIC acid 2021- No [id number] 1mg Take 1 Univers 1 mg tablet 12-31 178822 tablet by ity of 00:00: 04:59 mouth in [place] 00 :00 [facility] for 30 days. metFORMIN Yes [id number] 500mg Take 1 Univers 500 mg 7- 360505 tablet by ity of tablet 00:00: mouth in [address] and 1 tablet in the evening. Take with meals. metFORMIN Yes [id number] 500mg Take 1 Univers 500 mg 7-11 354413 tablet by ity of tablet 00:00: mouth in [address] and 1 tablet in the evening. Take with meals. metFORMIN Yes [id number] 500mg Take 1 Univers 500 mg 7- 071313 tablet by ity of tablet 00:00: mouth in [address] and 1 tablet in the evening. Take with meals. metFORMIN Yes [id number] 500mg Take 1 Univers 500 mg 7- 157111 tablet by ity of tablet 00:00: mouth in [address] and 1 tablet in the evening. Take with meals. aspirin Yes 81mg 81 mg, Univers chewable 7-10 Oral, ity of tablet 81 14:00: DAILY, [place] mg 00 First dose Medical on [facility] 12/29/21 at 0900, Until Discontinu ed, Routine sulfur 2021- No [id number] 5mL 5 mL, Unive rs hexafluorid 12-29 07-10 Intravenou i ty of e microsphr 13:45: 13:45 s, ONCE, 1 [place] (LUMASON) 00 :00 dose, On Medica l injection 5 [facility] mL 12/29/21 at 0845, Routine
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 approving Restricted medication : STEFANIE GORMAN enoxaparin Yes 40mg 40 mg, Unive rs (LOVENOX) 7-10 Subcutaneo ity of injection 13:00: us, Q24H, [place] 40 mg 00 First dose Medical on [facility] 12/29/21 at 0800, Until Discontinu ed, Routine Sliding Yes Subcutaneo Univ ers Scale 7-10 us, TID ity of Insulin - 13:00: MEALS+HS, [place] Lispro 00 First dose Medical (HumaLOG) + on [facility] Fsbg 12/29/21 at Testing 0800, Until Discontinu ed, Routine diazePAM 2021-0 2022- No 10mg 10 mg, Univer s (VALIUM) 7- 07-10 Intravenou ity of injection 05:30: 04:40 s, ONCE, 1 [place] 10 mg 00 :00 dose, On [facility] 12/29/21 at 0030, Routine diazePAM 2021-0 202- No 10mg 10 mg, Univer s (VALIUM) 7- 07-10 Intravenou ity of injection 04:15: 03:17 s, ONCE, 1 [place] 10 mg 00 :00 dose, On [facility] 12/28/21 Branch at 2315, Routine diazePAM 2021-0 Yes 5mg 5 mg, Univers (VALIUM) 7-10 Intravenou ity o f injection 5 03:45: s, QIDPRN, [place] mg 01 Starting Medical on [facility] 12/28/21 at 2245, Until Discontinu ed, Routine, Seizures, Agitation foLIC acid 2021-0 Yes 1mg 1 mg, Univer s (FOLATE) 7-10 Oral, ity of tablet 1 mg 03:45: DAILY, [place] 00 First dose Medical on [facility] 12/28/21 at 2245, Until Discontinu ed, Routine thiamine 2021-0 Yes 100mg 100 mg, Unive rs (VITAMIN 7-10 Oral, ity of B1) tablet 03:45: DAILY, [place] 100 mg 00 First dose Medical (after Branch last modificati on) on [facility] 12/28/21 at 2245, Until Discontinu ed, Routine glucagon 2021-0 Yes 1mg 1 mg, Univers (GLUCAGEN 7-10 Intramuscu ity of DIAGNOSTIC 03:42: lar, PRN, [place]) 19 Starting Medical injection 1 on [facility] 12/28/21 at 2242, Until Discontinu ed, [...] or has mental status changes, Starting on [facility] 12/28/21 at 2242
If blood glucose [...] No 1mg 1 mg, Univer s (ATIVAN) 7- 07-10 Intravenou ity of injection 1 03:30: 02:32 s, ONCE, 1 [place] mg 00 :00 dose, On Medical [facility] 12/28/21 Branch at 2230, Routine
Is the medication being used for status epilepticu s? No oxazepam Yes 15mg 15 mg, Univers (SERAX) 7-10 Oral, ity of capsule 15 00:28: Q4HPRN, [place] mg 20 Starting Medical on [facility] Branch 12/28/21 at 1928, Until Discontinu ed, Routine, Only while awake for DBP equal to or greater than 100, HR equal to or greater than 100. ondansetron Yes 4mg 4 mg, Slow Univers (ZOFRAN 7-10 IV Push, ity of (PF)) 00:23: Q6HPRN, [place] injection 4 47 Starting Medi yudy mg on [facility] Branch 12/28/21 at 1923, Until Discontinu ed, Routine, Nausea and Vomiting (N/V) acetaminoph 0 Yes 650mg 650 mg, Un lorena en 7-10 Oral, ity of (TYLENOL) 00:23: Q6HPRN, [place] tablet 650 37 Starting Medic al mg on [facility] Branch 12/28/21 at 1923, Until Discontinu [...] 16:00:00 125 mm[Hg] Univer sity of pressure [place] [facility] Diastolic blood 2022-04-06 16:00:00 75 mm[Hg] Unive rsity of pressure [place] [facility] Heart rate 2022-04-06 16:00:00 87 /min Universi ty of [place] [facility] Respiratory rate 2022-04-06 16:00:00 22 /min Univ ersity of [place] [facility] Oxygen saturation in 2022-04-06 16:00:00 98 /min University of Arterial blood by [facility] Pulse oximetry Branch Body temperature 2022-04-06 14:41:00 37 Theresa Univ ersity of [place] [facility] Body height 2022-04-06 14:41:00 160 cm Universi ty of [place] [facility] Body weight 2022-04-06 14:41:00 63.504 kg Universi ty of [place] [facility] BMI 2022-04-06 14:41:00 24.80 kg/m2 Universi ty of [place] [facility] Systolic blood 2022-01-20 02:27:00 121 mm[Hg] Univer sity of pressure [place] [facility] Diastolic blood 2022-01-20 02:27:00 75 mm[Hg] Unive rsity of pressure [place] [facility] Heart rate 2022-01-20 02:27:00 79 /min Universi ty of [place] [facility] Respiratory rate 2022-01-20 02:27:00 12 /min Univ ersity of [place] [facility] Oxygen saturation in 2022-01-20 02:27:00 98 /min University of Arterial blood by [facility] Pulse oximetry Branch Body temperature 2022-01-19 22:19:00 36.44 Theresa Univ ersity of [place] [facility] Body weight 2022-01-19 22:19:00 60.328 kg Universi ty of [place] [facility] BMI 2022-01-19 22:19:00 23.56 kg/m2 Universi ty of [place] [facility] Systolic blood 2021-12-30 20:52:00 134 mm[Hg] Univer sity of pressure [place] [facility] Diastolic blood 2021-12-30 20:52:00 76 mm[Hg] Unive rsity of pressure [place] [facility] Heart rate 2021-12-30 20:52:00 67 /min Universi ty of [place] [facility] Body temperature 2021-12-30 20:26:00 36.67 Theresa Univ ersity of [place] [facility] Oxygen saturation in 2021-12-30 20:26:00 99 /min University of Arterial blood by [facility] Pulse oximetry [place] Respiratory rate 2021-12-30 16:21:00 18 /min [facility] Body weight 2021-12-30 08:27:00 60.464 kg [facility] BMI 2021-12-30 08:27:00 23.61 kg/m2 [facility] Body height 2021-12-29 01:29:00 160 cm [facility] Procedures Procedure Date / Time Performing Clinician Source Performed XR CHEST 1 VW 2022-04-06 14:51:50 Diya Chowdhury [facility] LIPASE 2022-04-06 14:42:00 Luciana [facility] TROPONIN I 2022-04-06 14:42:00 Diya Chowdhury [facility] COMP. METABOLIC PANEL 2022-04-06 14:42:00 Diya Chowdhury [facility] ([id number] CBC WITH DIFF 2022-04-06 14:42:00 Diya Chowdhury [facility] PROTHROMBIN TIME / INR 2022-04-06 14:42:00 [facility] 2022-04-06 14:42:00 Diya Chowdhury [facility] LACTIC ACID WHOLE BLOOD 2022-01-20 00:22:00 Leticia Hameed [facility] URINE DRUG (IMMUNOASSAY) 2022-01-19 23:10:00 Leticia Hameed [facility] SCREEN URINALYSIS 2022-01-19 23:10:00 Leticia Hameed [facility] TROPONIN I 2022-01-19 23:00:00 Leticia Hameed [facility] COMP. METABOLIC PANEL 2022-01-19 23:00:00 Leticia Hameed [facility] ([id number]) [facility] LITHIUM 2022-01-19 23:00:00 Leticia Hameed [facility] ETHANOL 2022-01-19 23:00:00 Leticia Hameed Riddhi [facility] CBC WITH DIFF 2022-01-19 23:00:00 Leticia Hameed [facility] COVID-19 (ID NOW RAPID 2022-01-19 23:00:00 Leticia Hameed [facility] TESTING) Medical Branch CT HEAD WO CONTRAST 2022-01-19 22:49:00 Leticia Hameed [facility] XR CHEST 1 VW 2022-01-19 22:41:00 Leticia Hameed Riddhi [facility] POCT GLUCOSE (AUTOMATED) 2022-01-19 22:25:00 Leticia Hameed [facility] POCT GLUCOSE (AUTOMATED) 2021-12-30 21:55:00 Jessica Prado [facility] POCT GLUCOSE (AUTOMATED) 2021-12-30 16:21:00 Jessica Prado [facility] POCT GLUCOSE (AUTOMATED) 2021-12-30 12:30:00 Jessica Prado [facility] HEPATIC FUNCTION PANEL 2021-12-30 09:28:00 Maira Gaitan [facility] ([id number]) (ALB,T.PRO,[facility] T,BU/BC,ALT,AST,ALK PHOS) POCT GLUCOSE (AUTOMATED) 2021-12-30 02:11:00 Jessica Prado [facility] POCT GLUCOSE (AUTOMATED) 2021-12-29 21:41:00 Jessica Prado [facility] POCT GLUCOSE (AUTOMATED) 2021-12-29 16:37:00 Jessica Prado [facility] TRANSTHORACIC ECHO (TTE) 2021-12-29 13:05:00 Jessica Prado [facility] W/ CONTRAST Medical [facility] POCT GLUCOSE (AUTOMATED) 2021-12-29 12:41:00 Jessica Prado [facility] TROPONIN I 2021-12-29 09:42:00 Jessica Prado [facility] TROPONIN I 2021-12-29 04:55:00 Eve [facility] CT HEAD WO CONTRAST 2021-12-28 21:18:22 Pia Renteria [facility] AMMONIA, PLASMA 2021-12-28 21:00:00 Pia Renteria [facility] COVID-19 (ID NOW RAPID 2021-12-28 20:42:00 Pia Renteria [facility] TESTING) Medical Branch LAB ONLY COVID 2021-12-28 20:42:00 Pia Renteria [facility] INTERPRETATION [facility] URINE DRUG (IMMUNOASSAY) 2021-12-28 20:42:00 Pia Renteria [facility] SCREEN W/O REFLEX URINALYSIS 2021-12-28 20:40:00 Pia Renteria [facility] N-TERMINAL PRO-BNP 2021-12-28 20:40:00 Pia Renteria [facility] TROPONIN I 2021-12-28 20:40:00 [facility] 2021-12-28 20:40:00 Eve Jessica [facility] HORMONE [facility] COMP. METABOLIC PANEL 2021-12-28 20:40:00 Pia Renteria [facility] ([id number]) [facility] LIPID PANEL ([id number])(TOTAL 2021-12-28 20:40:00 [facility]rius [facility] TRIGLY[facility]ER[facility], HDL) ETHANOL 2021-12-28 20:40:00 Demetrius Langford [facility] CBC WITH DIFF 2021-12-28 20:40:00 [facility] GLYCOSYLATED HEMOGLOBIN 2021-12-28 20:40:00 Eve [facility] (A1C) [facility] PROTHROMBIN TIME / INR 2021-12-28 20:40:00 Dexter P[facility] XR CHEST 1 VW 2021-12-28 20:16:00 [facility] HB [facility] ROUTINE & RHYTHM 2021-12-28 20:04:59 RenteriaPia [facility] Encounters Start End Encounter Admission Attending Care Care Encounter Source Date/Time Date/Time Type Type Clinicians Facility Department ID 2021-09-17 Inpatient [facility] [id number] [facility] 16:45:00 35 2020-06-06 Inpatient [facility] [id number] [facility] 16:07:00 05 2020-06-06 Inpatient [facility] [id number] [facility] 06:20:00 77 2020-06-05 Inpatient [facility] [id number] [facility] 19:35:00 25 2020-05-23 Inpatient [facility] [id number] [facility] 19:53:00 39 2020-05-23 Inpatient [facility] [id number] [facility] 19:53:00 39 2022-04-06 2022-04-06 Emergency X LUCIANA [facility] ERT [id number] Univers 09:38:00 11:42:00 DIYA rahman [facility] 2022-04-06 2022-04-06 Emergency Luciana [facility] [id number] Univers 09:38:00 11:42:00 Diya OTTO [id number] i Mila [id number] [facility] [id number] [address] 2022-03-07 2022-03-07 Emergency [facility] [id number] [facility] 12:38:00 12:38:00 74 2022-03-07 2022-03-07 Emergency Emergency Fidel Cuellar [facility] [id number] [facility] 12:38:00 12:38:00 74 2022-01-19 2022-01-19 Emergency X NNEKA ARYULIA ERT [id number] Univers 17:18:00 22:00:00 DIRK rahman [facility] 2022-01-19 2022-01-19 Emergency Leticia Hameed [facility] 1.2.840. [id number] Univers 17:18:00 22:00:00 Dirk Yarbrough [id number] ity stacey MARTINI [id number] [facility] [id number] [facility] [place] 084 Branch 2021-12-31 2021-12-31 Transition EDMUNDO Portillo [id number] Univers 00:00:00 00:00:00 of Care Faye RANKIN [id number] ity of RAMON [id number] [facility] [id number] [facility] [place] 403 Branch 2021-12-28 2021-12-30 Inpatient X EVE [facility] [id number] Univers 14:53:00 17:42:00 JESSICA ity of [facility] 2021-12-28 2021-12-30 [facility] Pia Renteria [facility] 1.2.840. [id number] [facility] 14:53:00 17:42:00 Encounter Jessica Prado [id number] ity of [facility] [id number] [facility] [id number] [facility] 081 Branch 2021-09-17 2021-09-17 Emergency [facility] [id number] [facility] 16:47:00 16:47:00 35 2020-06-06 2020-06-06 Emergency [facility] [id number] [facility] 16:07:00 16:07:00 05 Results Test Description Test Time Test Comments Results Result Comments Source TROPONIN I 2022-04-06 15:15:32 Test Item Value Reference Range Interpretation Comme nts TROPONIN I (test code = 0.007 ng/mL See_Comment [Au tomated message] The 3298872053) system which ge nerated this result tra [...] biotin. Lab Interpretation Normal (test code = 77381-6) [facility] 15:08:29 Test Item Value Reference Range Interpretation Comments APTT Patient (test See_Comment [Automat ed code = 3173-2) message] The system which generated this result transmitted reference range : 23 - 38 Seconds . The reference range was not used to interpr et this result as normal/abnormal . JUAN ALBERTO (test code = JUAN ALBERTO) The [facility] patient population mean normal value for aPTT is 30 seconds. Lab Interpretation Normal (test code = 00635-0) [facility] Center[facility] / [id number] 15:06:28 Test Item Value Reference Range Interpretation [...] tions. Lab Interpretation (test Normal code = 39494-5) [facility] PANEL ([id number])2022-04-06 15:03:31 Test Item Value Reference Range Interpretation Comments NA (test code = 136 mmol/L 135-145 6169664982) K (test code = 5.0 mmol/L 3.5-5 6208714422) CL (test code = 104 mmol/L 98-108 1509978590) CO2 TOTAL (test code = 21 mmol/L 23-31 L 5658633601) AGAP (test code = 2-16 0550312633) BUN (test code = 11 mg/dL 7-23 1664351598) GLUCOSE (test code = 162 mg/dL 70-110 H 7021880048) CREATININE (test code = 0.52 mg/dL 0.6-1.25 L 2334733312) TOTAL BILI (test code = 1.0 mg/dL 0.1-1.0 8139026239) CALCIUM (test code = 9.3 mg/dL 8.6-10.6 2818247369) T PROTEIN (test code = 7.4 g/dL 6.3-8.2 4746132329) ALBUMIN (test code = 4.4 g/dL 3.5-5 0177746689) ALK PHOS (test code = 134 U/L 34-122 H 9838095091) ALTv (test code = 17 U/L 5-50 1742-6) AST(SGOT) (test code = 38 U/L 13-40 9701331435) eGFR (test code = mL/min/1.73m2 8945247688) JUAN ALBERTO (test code = JUAN ALBERTO) [...] tests). Lab Interpretation Abnormal (test code = 27747-3) [facility], [id number] 15:03:31 Test Item Value Reference Range Interpretation Comments LIPASE (test code = 9808002988) 29 U/L 0-220 Lab Interpretation (test code = Normal 58995-1) [facility] WITH [id number] 14:51:49 Test Item Value Reference Range Interpretation Comments WBC (test code = See_Comment [Automated 5590-2) message] The sy stem which generated this [...] RDW-SD (test code = 45.9 fL 38.5-51.6 18881-6) RDW-CV (test code = 13.3 % 12.1-15.4 788-0) PLT (test code = See_Comment [Automated 777-3) message] The sy stem which generated this result transmitted reference range : 150 - 328 10*3/ ?L. The reference r elba was not used to interpret this result as normal/abnormal . MPV (test code = 8.4 fL 9.8-13 L 13575-7) NRBC/100 WBC (test See_Comment [Automat ed code = 1538472065) message] The system which generated this result transmitted reference range : 0.0 - 10.0 /100 WBCs. The refer ence range was not u sed to interpret th is result as normal/abnormal . NRBC x10^3 (test code See_Comment [Auto mated = 3762240979) message] The s ystem which generated this result transmitted reference range : 10*3/?L. The reference range was not used to interpret this result as normal/abnormal . GRAN MAT (NEUT) % 63.0 % (test code = 770-8) IMM GRAN % (test code 0.50 % = 2405514217) LYMPH % (test code = 25.2 % 736-9) MONO % (test code = 9.8 % 5905-5) EOS % (test code = 0.3 % 713-8) BASO % (test code = 1.2 % 706-2) GRAN MAT x10^3(ANC) 3.73 10*3/uL 1.99-6.95 (test code = 4656919037) IMM GRAN x10^3 (test 0.03 10*3/uL 0-0.06 code = 1791514764) LYMPH x10^3 (test code 1.49 10*3/uL 1.09-3.23 = 731-0) MONO x10^3 (test code 0.58 10*3/uL 0.36-1.02 = 742-7) EOS x10^3 (test code = 0.06-0.53 L 711-2) BASO x10^3 (test code 0.07 10*3/uL 0.01-0.09 = 704-7) Lab Interpretation Abnormal (test code = 30084-4) [facility] Center[facility], Urinalysis Rflx Cult/[id number] 13:53:00 Test Item Value Reference Range Interpretation Comments Color,Urine (test code = UCOL) Yellow Yellow Clarity,Urine (test code = Cloudy Clear A UCLAR) Ph, Urine (test code = UPH) 7.5 5.0-9.0 N Specific [place],Urine (test 1.025 1.005-1.030 N code = USG) [...] mg/dL Negative code = ULEU) UF REFLEXDrug Screen,[id number] 13:53:00 Test Item Value Reference Range Interpretation [...] code = UPROP) Complete Blood Count Auto [id number] 12:58:00 Test Item Value Reference Range Interpretation [...] = NRBCP) 0 % Coronavirus PCR, COVID19 [id number] 12:58:00 Test Item Value Reference Range Interpretation Comments Coronavirus PCR, COVID19 Rapid (test code = SARSCOV2) Coronavirus PCR, COVID19 Reference Range: Rapid (test code = Negative PGOQOUW48.1) SARS-CoV-2 PCR Result: Negative by RT-PCR (test code = SARS-CoV-2 PCR Result:) COVID-19 Status: AsymptomaticComprehensive Metabolic [id number] 12:58:00 Test Item Value Reference Range Interpretation [...] (test code = CRCLPHA) Estimated GFR ( Aieme > 60 mL/min/1.73m2 (test code = EGFRAA) [...] 144 U/L 46-116 H = ALP) Ethanol [id number] 12:58:00 Test Item Value Reference Range Interpretation Comments Ethanol (test code < 3 mg/dL The pharm acological = ETOH) response to blo od alcohol levels mayvary from individual to i ndividual. The fatal surinder ntrationhas been reported t o be >400mg/dL. [id number] 01:47:56 Test Item Value Reference Range Interpretation Comments [place] (test code = 0.7 mmol/L 0.6-1.2 7498613397) JUAN ALBERTO (test code = JUAN ALBERTO) Toxic Range: ? Greater than 1.2 mmol/L Lab Interpretation (test Normal code = 70916-6) [facility] [id number] 00:26:53 Test Item Value Reference Interpretation Comments Range TROPONIN I (test 0.002 ng/mL See_Comment [Automated code = 0016556169) message] The system which generated this result [...] biotin. 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 METABOLIC PANEL (24436) 2022-01-20 00:16:16 Test Item Value Reference Range Interpretation Comments NA (test code = 137 mmol/L 135-145 8791176743) K (test code = 4.5 mmol/L 3.5-5 3708778151) CL (test code = 103 mmol/L 98-108 6087978499) CO2 TOTAL (test code = 26 mmol/L 23-31 1859474152) AGAP (test code = 2-16 8254925639) BUN (test code = 10 mg/dL 7-23 3142481466) GLUCOSE (test code = 121 mg/dL 70-110 H 9874372588) CREATININE (test code = 0.65 mg/dL 0.6-1.25 1396018868) TOTAL BILI (test code = 0.8 mg/dL 0.1-1.3 2865055494) CALCIUM (test code = 11.4 mg/dL 8.6-10.6 H 6643877764) T PROTEIN (test code = 7.2 g/dL 6.3-8.2 6155109242) ALBUMIN (test code = 4.6 g/dL 3.5-5 0262521492) ALK PHOS (test code = 112 U/L 34-122 6731796610) ALTv (test code = 19 U/L 5-50 1742-6) AST(SGOT) (test code = 26 U/L 13-40 6585035750) eGFR (test code = mL/min/1.73m2 0298633443) JUAN ALBERTO (test code = JUAN ALBERTO) [...] tests). Lab Interpretation Abnormal (test code = 45814-8) [facility] WITH [id number] 23:43:54 Test Item Value Reference Range Interpretation [...] RDW-SD (test code = 44.0 fL 38.5-51.6 62960-6) RDW-CV (test code = 12.6 % 12.1-15.4 788-0) PLT (test code = See_Comment [Automated 777-3) message] The sy stem which generated this result transmitted reference range : 150 - 328 10*3/ ?L. The reference r elba was not used to interpret this result as normal/abnormal . MPV (test code = 9.1 fL 9.8-13 L 08290-0) NRBC/100 WBC (test See_Comment [Automat ed code = 1041450876) message] The system which generated this result transmitted reference range : 0.0 - 10.0 /100 WBCs. The refer ence range was not u sed to interpret th is result as normal/abnormal . NRBC x10^3 (test code See_Comment [Auto mated = 4766633580) message] The s ystem which generated this result transmitted reference range : 10*3/?L. The reference range was not used to interpret this result as normal/abnormal . GRAN MAT (NEUT) % 69.8 % (test code = 770-8) IMM GRAN % (test code 0.40 % = 9183336443) LYMPH % (test code = 18.0 % 736-9) MONO % (test code = 10.9 % 5905-5) EOS % (test code = 0.1 % 713-8) BASO % (test code = 0.8 % 706-2) GRAN MAT x10^3(ANC) 5.58 10*3/uL 1.99-6.95 (test code = 1837981315) IMM GRAN x10^3 (test 0.03 10*3/uL 0-0.06 code = 1204369265) LYMPH x10^3 (test code 1.44 10*3/uL 1.09-3.23 = 731-0) MONO x10^3 (test code 0.87 10*3/uL 0.36-1.02 = 742-7) EOS x10^3 (test code = 0.06-0.53 L 711-2) BASO x10^3 (test code 0.06 10*3/uL 0.01-0.09 = 704-7) Lab Interpretation Abnormal (test code = 39164-2) [facility] GLUCOSE (AUTOMATED)2022-01-19 22:27:41 Test Item Value Reference Range Interpretation Comments POCT GLU (test code = 7233946988) 123 mg/dL 70-110 H Lab Interpretation (test code = Abnormal 28564-1) [facility] GLUCOSE (AUTOMATED)2021-12-30 22:08:16 Test Item Value Reference Range Interpretation Comments POCT GLU (test code = 7847856181) 167 mg/dL 70-110 H Lab Interpretation (test code = Abnormal 57519-7) [facility] GLUCOSE (AUTOMATED)2021-12-30 16:50:40 Test Item Value Reference Range Interpretation Comments POCT GLU (test code = 5229174152) 154 mg/dL 70-110 H Lab Interpretation (test code = Abnormal 15150-4) [facility] GLUCOSE (AUTOMATED)2021-12-30 12:38:43 Test Item Value Reference Range Interpretation Comments POCT GLU (test code = 6812965725) 164 mg/dL 70-110 H Lab Interpretation (test code = Abnormal 59614-5) [facility] GLUCOSE (AUTOMATED)2021-12-30 02:14:58 Test Item Value Reference Range Interpretation Comments POCT GLU (test code = 6716718161) 220 mg/dL 70-110 H Lab Interpretation (test code = Abnormal 99742-5) [facility] GLUCOSE (AUTOMATED)2021-12-29 21:50:02 Test Item Value Reference Range Interpretation Comments POCT GLU (test code = 0634828766) 191 mg/dL 70-110 H Lab Interpretation (test code = Abnormal 89896-0) [facility] GLUCOSE (AUTOMATED)2021-12-29 20:15:01 Test Item Value Reference Range Interpretation Comments POCT GLU (test code = 0783790209) 163 mg/dL 70-110 H Lab Interpretation (test code = Abnormal 95879-5) [facility]2021-12-29 19:12:22 Test Item Value Reference Range Interpretation Comments Height (test code = in 5710369755) Weight (test code = lbs 1474474517) Systolic BP (test code = mmHg 5270841546) Diastolic BP (test code mmHg = 3058561881) Heart Rate (test code = bpm 4790830833) BSA (test code = 1.62 m2 5576445839) Ao root annulus (test 2.45 cm code = 4801418097) Ao root diam (test code 2.45 cm = 2562892249) Aortic root (test code = 2.45 cm 2519372115) ACS (test code = 1.66 cm 7402481632) LA size (test code = 3.2 cm 3506074369) LVOT diameter (test code 1.95 cm = 7012115687) LVIDD (test code = 3.60 cm 2809717803) IVS (test code = 0.94 cm 3233867299) Interventricular Septum 0.94 cm Diastolic Thickness by 2D (test code = 7152308) LVPWD (test code = 0.80 cm 0881970666) PW (test code = 0.80 cm 0.6-1.7 9999749734) EF(Teich) (test code = 52.80 % 7104703532) LVIDS (test code = 2.60 cm 7179388907) FS (test code = 27 % 6995050001) EF - 2D (test code = 52.80 % 41826100) LAV(MOD-sp4) (test code 16.80 mL = 9295884282) MV Peak E Jovany (test code 46.1 cm/s = 5405194988) E wave decelartion time 0.31 s (test code = 4160448780) MV Peak A Jovany (test code 58.1 cm/s = 0631171637) E/A ratio (test code = ratio 5753577660) MV E/e' septal (test 5.7 cm/s code = 8336668931) Tapse (test code = 1.60 cm 7881360340) LVOT stroke volume (test 52.10 cm3 code = 3892539695) LVOT peak jovany (test code 110.6 cm/s = 3743779828) LVOT mn grad (test code mmHg = 5803064730) AV LVOT peak gradient mmHg (test code = 8468428316) LVOT peak VTI (test code 17.4 cm = 7824345863) LV V1 mean (test code = 66.10 cm/s 1084524934) Aortic valve mean 73.0 cm/s velocity (test code = 9176228272) Ao peak jovany (test code = 124.6 cm/s 2468156503) Ao VTI (test code = 18.6 cm 2105041837) AV area by cont VTI 2.8 cm2 (test code = 5043858120) AV area peak jovany (test 2.7 cm2 code = 6639489768) Ao max PG (test code = 6.20 mm[Hg] 8942459015) AV peak gradient (test mmHg code = 8982963264) AV valve area (test code 2.80 cm2 = 9467016088) AV mean gradient (test mmHg code = 7095685396) Radiology Study observation (narrative) (test code = 43924-3) JUAN ALBERTO (test code = JUAN ALBERTO) [...] mL of Lumason ultrasound enhancing agent used. [facility]2021-12-29 12:50:31 Test Item Value Reference Range Interpretation Comments POCT GLU (test code = 2228886195) 141 mg/dL 70-110 H Lab Interpretation (test code = Abnormal 85302-6) [facility] CenterTroponin [id number] 10:38:31 Test Item Value Reference Interpretation Comments Range TROPONIN I (test 0.003 ng/mL See_Comment [Automated code = 4350538223) message] The system which generated this result [...] biotin. Lab Interpretation Normal (test code = 49073-2) [facility] CenterLIPID PANEL (95250)(TOTAL CHOLESTEROL, TRIGLYCERIDES, HDL)2021-12-29 05:56:47 Test Item Value Reference Range Interpretation Comments CHOL (test code = 168 mg/dL 120-200 5540108767) HDL (test code = 102 mg/dL See_Comment [Automated message] 9597760761) The system [employer] generated this result transmit naomie reference range : >=40. The refer ence range was not u sed to interpret th is result as normal/abnormal . HDLC RATIO (test code = See_Comment [Au tomated message] 2250301962) The system [employer] generated this result transmit naomie reference range : <=5.0. The refe rence range was not u sed to interpret th is result as normal/abnormal . TRIG (test code = 55 mg/dL 30-170 1149818421) LDL CHOL (test code = 55 mg/dL See_Comment [Auto mated message] 90339-7) The system [employer] generated this result transmit naomie reference range : <=160. The refe rence range was not u sed to interpret th is result as normal/abnormal . VLDL (test code = 11 mg/dL 5-60 0121433701) Lab Interpretation (test Normal code = 59569-3) [facility] CenterThyroid Stimulating Hormone (TSH)2021-12-29 05:40:29 Test Item Value Reference Range Interpretation Comments TSH (test code = See_Comment Biotin has been 9492860473) reported to cau se a negative bias, interpret resul ts relative to pat ierenetta's use of biotin. [Automated mess age] The system [employer] generated this result transmitted ref erence range: 0.45 - 4 .70 mIU/L. The refe rence range was not u sed to interpret this result as normal/abnor mal. Lab Interpretation (test Normal code = 63634-8) [facility] CenterTroponin [id number] 05:34:29 Test Item Value Reference Interpretation Comments Range TROPONIN I (test 0.006 ng/mL See_Comment [Automated code = 4120383877) message] The system which generated this result [...] biotin. Lab Interpretation Normal (test code = 26615-7) [facility]20[facility] 04:43:01 ALCOHOL<10mg/dL12/28/2021 11:43 PM [facility] Greater than or equal to 80 mg/dL. NOTE: Whole blood values are approximately 10% to 15% lower than serum and plasma.[facility] CenterGlycosylated Hemoglobin (A1C)2021-12-29 01:51:44 Test Item Value Reference Range Interpretation Comments HGB A1C (test code = 6.5 % 4-5.7 H 4548-4) JUAN ALBERTO (test code = JUAN ALBERTO) Reference RangesNormal: <5.7%Prediabetes: 5.7 - 6.4%Diabetes: > 6.5% Lab Interpretation (test Abnormal code = 07840-0) [facility] CenterTROPONIN [id number] 21:26:50 Test Item Value Reference Interpretation Comments Range TROPONIN I (test 0.002 ng/mL See_Comment [Automated code = 8501482798) message] The system which generated this result [...] biotin. Lab Interpretation Normal (test code = 99730-9) [facility] CenterN-TERMINAL OIA-[id number] 21:23:29 Test Item Value Reference Range Interpretation Comments NT-proBNP (test code 41 pg/mL See_Comment [Autom ated = 4492213830) message] The system which generated this result transmitted reference range : <=125. The reference range was not used to interpret this result as normal/abnormal . JUAN ALBERTO (test code = JUAN ALBERTO) Biotin has been reported to cause a negative bias, interpret results relative to patient's use of biotin. Lab Interpretation Normal (test code = 64037-0) [facility] CenterAMMONIA, [id number] 21:20:38 Test Item Value Reference Range Interpretation Comments AMMONIA (test code = 9-33 L Slight hemolysis 3383697334) Lab Interpretation (test Abnormal code = 70974-5) [facility] CenterCOMP. METABOLIC PANEL (58773)2021-12-28 21:08:48 Test Item Value Reference Range Interpretation Comments NA (test code = 137 mmol/L 135-145 0062229064) K (test code = 4.5 mmol/L 3.5-5 3060265686) CL (test code = 97 mmol/L 98-108 L 0140877273) CO2 TOTAL (test code = 29 mmol/L 23-31 5247572503) AGAP (test code = 2-16 9786851485) BUN (test code = 10 mg/dL 7-23 9117862809) GLUCOSE (test code = 188 mg/dL 70-110 H 0762331814) CREATININE (test code = 0.58 mg/dL 0.6-1.25 L 1349220356) TOTAL BILI (test code = 0.8 mg/dL 0.1-1.9 8457938003) CALCIUM (test code = 10.5 mg/dL 8.6-10.6 0612662140) T PROTEIN (test code = 7.6 g/dL 6.3-8.2 2096042004) ALBUMIN (test code = 4.5 g/dL 3.5-5 6490886020) ALK PHOS (test code = 107 U/L 34-122 8293058809) ALTv (test code = 66 U/L 5-50 H 2-6) AST(SGOT) (test code = 96 U/L 13-40 H 9432877263) eGFR (test code = mL/min/1.73m2 0487618734) JUAN ALBERTO (test code = JUAN ALBERTO) [...] tests). Lab Interpretation Abnormal (test code = 76248-5) [facility] CenterPROTHROMBIN TIME / [id number] 21:01:25 Test Item Value Reference Range Interpretation Comments PROTIME PATIENT (test See_Comment [Auto mated message] code = 5964-2) The system [employer] generated this result transmitted ref erence range: 12.0 - 1 4.7 Seconds. The re ference range was not u sed to interpret this result as normal/abnor mal. INR (test code = 6301-6) Nor mal INR <1.1; Warfarin Therap eutic range 2.0 to 3. 0 or 2.5 to 3.5, dep ending upon the indica tions. Lab Interpretation (test Normal code = 40504-9) [facility] WITH [id number] 20:54:03 Test Item Value Reference Range Interpretation [...] RDW-SD (test code = 47.8 fL 38.5-51.6 30982-6) RDW-CV (test code = 13.3 % 12.1-15.4 788-0) PLT (test code = See_Comment [Automated 777-3) message] The sy stem which generated this result transmitted reference range : 150 - 328 10*3/ ?L. The reference r elba was not used to interpret this result as normal/abnormal . MPV (test code = 8.6 fL 9.8-13 L 24403-7) NRBC/100 WBC (test See_Comment [Automat ed code = 9672445981) message] The system which generated this result transmitted reference range : 0.0 - 10.0 /100 WBCs. The refer ence range was not u sed to interpret th is result as normal/abnormal . NRBC x10^3 (test code See_Comment [Auto mated = 4341633441) message] The s ystem which generated this result transmitted reference range : 10*3/?L. The reference range was not used to interpret this result as normal/abnormal . GRAN MAT (NEUT) % 64.1 % (test code = 770-8) IMM GRAN % (test code 0.40 % = 4431631532) LYMPH % (test code = 16.6 % 736-9) MONO % (test code = 17.2 % 5905-5) EOS % (test code = 0.2 % 713-8) BASO % (test code = 1.5 % 706-2) GRAN MAT x10^3(ANC) 3.47 10*3/uL 1.99-6.95 (test code = 5465951687) IMM GRAN x10^3 (test 0-0.06 code = 8211370506) LYMPH x10^3 (test code 0.90 10*3/uL 1.09-3.23 L = 731-0) MONO x10^3 (test code 0.93 10*3/uL 0.36-1.02 = 742-7) EOS x10^3 (test code = 0.06-0.53 L 711-2) BASO x10^3 (test code 0.08 10*3/uL 0.01-0.09 = 704-7) Lab Interpretation Abnormal (test code = 26665-7) [facility] CenterEthanol [id number] 21:08:00 Test Item Value Reference Range Interpretation Comments Ethanol (test code < 3 mg/dL The pharm acological = ETOH) response to blo od alcohol levels mayvary from individual to i ndividual. The fatal surinder ntrationhas been reported t o be >400mg/dL. Complete Blood Count Auto [id number] 17:33:00 Test Item Value Reference Range Interpretation [...] = NRBCP) 0 % UA, Urinalysis Rflx Cult/[id number] 17:33:00 Test Item Value Reference Range Interpretation Comments Color,Urine (test code = UCOL) Dark Yellow Yellow A Clarity,Urine (test code = Clear Clear UCLAR) Ph, Urine (test code = UPH) 6.5 5.0-9.0 N Specific [place],Urine (test 1.015 1.005-1.030 N code = USG) [...] mg/dL Negative A code = ULEU) Urine [id number] 17:33:00 Test Item Value Reference Range Interpretation Comments RBC,Urine (test code = URBCUF) None Seen /HPF 0-2 WBC,Urine (test code = UWBCUF) 0-5 /HPF 0-5 Epithelial Cell,Urine (test 0-5 /HPF 0-5 code = UECUF) Casts,Urine (test code = None Seen /LPF None Seen UCASTUF) Bacteria,Urine (test code = None Seen /hpf None Seen UBACTUF) Drug Screen,[id number] 17:33:00 Test Item Value Reference Range Interpretation [...] Urine (test code = UPROP) Comprehensive Metabolic [id number] 17:33:00 Test Item Value Reference Range Interpretation [...] 46-116 N = ALP) Sars-CoV-2/FLU A/B RSV [id number] 17:31:00 Test Item Value Reference Range Interpretation [...] (test code = SARS-CoV-2 PCR Result:) Drug Screen,[id number] 17:20:00 Test Item Value Reference Range Interpretation [...] code = UPROP) Complete Blood Count Auto [id number] 17:14:00 Test Item Value Reference Range Interpretation [...] code = NRBCP) 0 % Comprehensive Metabolic [id number] 17:14:00 Test Item Value Reference Range Interpretation [...] 207 U/L 46-116 H = ALP) Ethanol [id number] 17:14:00 Test Item Value Reference Range Interpretation Comments Ethanol (test code = ETOH) 192 mg/dL Complete Blood Count Auto [id number] 20:20:00 Test Item Value Reference Range Interpretation [...] code = NRBCP) 0 % Comprehensive Metabolic [id number] 20:20:00 Test Item Value Reference Range Interpretation [...] 189 U/L 46-116 H = ALP) Ethanol [id number] 20:20:00 Test Item Value Reference Range Interpretation Comments Ethanol (test code = ETOH) 10 mg/dL Sars-CoV-2/FLU A/B RSV [id number] 20:20:00 Test Item Value Reference Range Interpretation [...] = Amplification SARS-CoV-2 PCR Result:) UA, Urinalysis [id number] 20:20:00 Test Item Value Reference Range Interpretation Comments Color,Urine (test code = Yellow Y UCOL) Clarity,Urine (test code = Clear Clear UCLAR) PH,Urine (test code = 7.0 5.5-8.5 UPH.XX) Specific [place],Urine 1.020 1.005-1.030 N (test code = USG) [...] cells/uL Negative (test code = ULEU) Drug Screen,[id number] 20:20:00 Test Item Value Reference Range Interpretation [...] code = UTHCS) CT head/brain wo con [facility] [address] [place] [address] Patient Name: Walt Velazquez Medical Record#: [id number] Address: Homeless City/State/Zip: [place] [address]: Vinnie Navarro MD Phone: Insurance: Self Pay /Age/Sex: 1970/50/M Admit/Reg Date: 09/17/[address]: Vinnie Navarro MD Location: [facility]/ PCP: Pcp-Md KERWIN Stiles Date of Service: 09/17/21 Order (s): CT head/brain wo con CPT Code: 91712 Report Number: [id number] Reason for Exam: Altered mental status Location [...] 09/17/2021 6:42 PM CDT Dictated By: Karen aSnders MD 09/17/211824 Signed By: Karen Sanders MD 09/17/211824 TD/TT: 09/17/211824 Tech: ES135 cc: PCPNO; THELA* Vinnie Navarro MD; Pcp-Md KERWIN Stiles"
[2022-08-04 20:48] LABS: Absolute Lymphocytes (CBC) 1.1 K/uL (0.7-4.9); Hematocrit 42.9 % (39.6-49.0); Lymphocytes % 20.4 % (15.3-44.8); MCV 93.1 fL (80-100); MPV 6.8 fL (7.6-11.3); RBC Red Blood Cell Count 4.61 M/uL (4.33-5.43)
--- NOTE | 2022-08-04 20:56 | RAD REPORT ---
[facility]45 [facility] CLINICAL HISTORY: CHEST PAIN COMPARISON: Chest Single View dated 06/13/2022; Chest Single View dated 06/13/2022; Chest Single Vie w dated 05/07/2022; Chest Single View dated 03/29/2022 TECHNIQUE: Single AP view of the chest. FINDINGS: The lungs are clear. No pneumothorax or effusion. The cardiomediastinal contours are unrem arkable. IMPRESSION: No acute cardiopulmonary process.
[2022-08-04 20:59] LABS: Magnesium 2.1 mg/dL (1.6-2.4); Troponin High Sensitivity 14.5 pg/mL (<58.9)
[2022-08-04 21:19] LABS: SARS-COV-2 RT PCR NEGATIVE (NEGATIVE)
--- NOTE | 2022-08-04 21:59 | ER ---
Nurse's Notes [facility] Name: Walt Velazquez Age: 51 yrs Sex: Male : 1970 Arrival Date: 08/04/2022 Time: 19:11 Bed IW1 Private MD: Diagnosis: Chest pain, unspecified;Disorder of teeth and supporting structures, unspecified Presentation: 08/04 20:06 Chief complaint: Patient states: i have chest pains and its hurting me and my teeth are jh5 hurting and my eyes are hurting; this all started last night. I take a lot psych medicine but it messes me up. Coronavirus screen: Vaccine status: Patient reports being unvaccinated. Client denies travel out of the [place] in the last 14 days. Ebola Screen: Patient negative for fever greater than or equal to 101.5 degrees Fahrenheit, and additional compatible Ebola Virus Disease symptoms Patient denies exposure to infectious person. Patient denies travel to an Ebola-affected area in the 21 days before illness onset. Initial Sepsis Screen: Does the patient meet any 2 criteria? No. Patient's initial sepsis screen is negative. Does the patient have a suspected source of infection? No. Patient's initial sepsis screen is negative. Risk Assessment: Do you want to hurt yourself or someone else? Patient reports no desire to harm self or others. 20:06 Method Of Arrival: Ambulatory [facility] 20:06 Acuity: LATASHA 3 jh5 Triage Assessment: 20:08 General: Appears in no apparent distress. unkempt, Behavior is calm, cooperative, [facility] appropriate for age. Pain: Complains of pain in chest. Cardiovascular: No deficits noted. Reports chest pain. Historical: - Allergies: 20:08 No Known Allergies; [facility] - PMHx: 20:08 Alcoholism; Bipolar II; Hypertensive disorder; Parkinsons; Seizure; [facility] - Immunization history:: Adult Immunizations up to date. - Social history:: Smoking status: Patient reports the use of cigarette tobacco products, smokes one-half pack cigarettes per day, Patient uses alcohol, on a daily basis. street drugs. Assessment: 22:14 Reassessment: No changes from previously documented assessment. Patient and/or family mb9 updated on plan of care and expected duration. Pain level reassessed. Patient is alert, oriented x 3, equal unlabored respirations, skin warm/dry/pink. Vital Signs: 20:06 BP 157 / 105; Pulse 87; Resp 20; Temp 98.7; Pulse Ox 100% ; Weight 63.5 kg; Height 5 [facility] ft. 3 in. (160.02 cm); Pain 4/10; 22:13 BP 150 / 98; Pulse 97; Resp 18; Pulse Ox 100% on R/A; mb9 20:06 Body Mass Index 24.80 (63.50 kg, 160.02 cm) [facility] ED Course: 19:11 Patient arrived in ED. am2 20:08 Triage completed. [facility] 20:08 Arm band placed on left wrist. [facility] 20:16 Deandre Sharma PA is PHCP. cp 20:16 Deandre Mckeon MD is Attending Physician. cp 20:37 COVID-19/FLU A+B Sent. bc6 20:37 Basic Metabolic Panel Sent. bc6 20:37 CBC with Diff Sent. bc6 20:37 Magnesium Sent. 6 20:37 Troponin HS Sent. 6 20:37 Inserted saline lock: 20 gauge in right antecubital area, using aseptic technique. bc6 22:13 No provider procedures requiring assistance completed. IV discontinued, intact, mb9 bleeding controlled, No redness/swelling at site. Pressure dressing applied. Administered Medications: 22:07 Not Given (Patient Refused): Aspirin Chewable Tablet 324 mg PO once; 81 mg tablets x 4 kl Outcome: 21:59 Discharge ordered by MD. cp 22:13 Discharged to home with [place] [employer] mb9 22:13 Condition: stable 22:13 Discharge instructions given to patient, Instructed on discharge instructions, follow up and referral plans. Demonstrated understanding of instructions, follow-up care, medications, Prescriptions given X 1. 22:14 Patient left the ED. mb9 Signatures: Deandre Sharma PA PA cp Altagracia Diamond am2 Natalee Newman RN RN 5 Karrie Germain RN RN mb9 Nkechi Jasso 6 Natty Masters RN kl
--- NOTE | 2022-08-04 22:00 | EDPHYS ---
Physician Documentation [facility] Name: Walt Velazquez Age: 51 yrs Sex: Male : 1970 Arrival Date: 08/04/2022 Time: 19:11 Bed IW1 Private MD: ED Physician Deandre Mckeon HPI: 08/04 20:25 This 51 yrs old Male presents to ER via Ambulatory with complaints of Chest cp Pain. 20:25 The patient or guardian reports chest pain that is located primarily in the anterior cp chest wall, mid chest. 20:25 Onset: last night. Associated signs and symptoms: Pertinent negatives: abdominal pain, cp cough, diaphoresis, lower extremity pain, lower extremity swelling, shortness of breath, vomiting. The chest pain is described as constant. Duration: The patient or guardian reports a single episode, that is still ongoing. Severity of pain: in the emergency department the pain is unchanged despite home interventions. Patient presents to ED accompanied by law enforcement with c/o mid chest pain since last night. Patient c/o dental pain, bilateral eye pain. Historical: - Allergies: 20:08 No Known Allergies; jh5 - PMHx: 20:08 Alcoholism; Bipolar II; Hypertensive disorder; Parkinsons; Seizure; jh5 - Immunization history:: Adult Immunizations up to date. - Social history:: Smoking status: Patient reports the use of cigarette tobacco products, smokes one-half pack cigarettes per day, Patient uses alcohol, on a daily basis. street drugs. ROS: 20:30 Constitutional: Negative for body aches, chills, fever, poor PO intake. cp 20:30 Eyes: Positive for pain, Negative for discharge, redness. cp 20:30 ENT: Positive for dental pain. 20:30 Cardiovascular: Positive for chest pain, Negative for edema, palpitations. 20:30 Respiratory: Negative for cough, shortness of breath, wheezing. 20:30 Abdomen/GI: Negative for abdominal pain, vomiting, diarrhea, constipation. 20:30 Back: Negative for pain at rest, pain with movement. 20:30 : Negative for urinary symptoms. 20:30 Neuro: Negative for altered mental status. 20:30 All other systems are negative. Exam: 20:15 ECG was reviewed by the Attending Physician. cp 20:33 Constitutional: The patient appears in no acute distress, alert, awake, cp non-diaphoretic, non-toxic, well developed, well nourished. 20:33 Head/Face: Normocephalic, atraumatic. cp 20:33 Eyes: Periorbital structures: appear normal, Conjunctiva: normal, no exudate, no injection, Sclera: no appreciated abnormality, Lids and lashes: appear normal, bilaterally. 20:33 ENT: External ear(s): are unremarkable, Nose: is normal, Mouth: Lips: moist, Oral mucosa: moist, Posterior pharynx: Airway: no evidence of obstruction, patent, erythema, is not appreciated, exudate, is not appreciated, Dental exam: abscess, is not appreciated, dental caries, that is severe, diffusely, gum swelling, that is mild, pain, that is moderate, diffusely. 20:33 Neck: ROM/movement: is normal, is supple, without pain, no range of motions limitations. 20:33 Chest/axilla: Inspection: normal, Palpation: crepitus, is not appreciated, tenderness, is not appreciated. 20:33 Cardiovascular: Rate: normal, Rhythm: regular, Edema: is not appreciated, JVD: is not appreciated. 20:33 Respiratory: the patient does not display signs of respiratory distress, Respirations: normal, no use of accessory muscles, no retractions, labored breathing, is not present, Breath sounds: are clear throughout, no decreased breath sounds, no stridor, no wheezing. 20:33 Abdomen/GI: Inspection: abdomen appears normal, Palpation: abdomen is soft and non-tender, in all quadrants. 20:33 Back: pain, is absent, ROM is normal. 20:33 Neuro: Orientation: to person, place \T\ time. Mentation: is normal, Motor: moves all fours, strength is normal. Vital Signs: 20:06 BP 157 / 105; Pulse 87; Resp 20; Temp 98.7; Pulse Ox 100% ; Weight 63.5 kg; Height 5 jh5 ft. 3 in. (160.02 cm); Pain 4/10; 22:13 BP 150 / 98; Pulse 97; Resp 18; Pulse Ox 100% on R/A; mb9 20:06 Body Mass Index 24.80 (63.50 kg, 160.02 cm) 5 MDM: 20:58 Patient medically screened. cp 21:00 Differential diagnosis: acute myocardial infarction, acute pericarditis, chest wall cp pain, pancreatitis, pleurisy, pneumonia, pneumothorax, pulmonary embolus, stable angina, unstable angina. 21:59 Data reviewed: vital signs, nurses notes. cp 21:59 The patient was given aspirin in the Emergency Department. Consideration of cp Admission/Observation Escalation of care including admission/observation considered. Test considered but Not performed: CT: chest. Care significantly affected by the following chronic conditions: Hypertension, alcohol abuse, seizure disorder. Counseling: I had a detailed discussion with the patient and/or guardian regarding: the historical points, exam findings, and any diagnostic results supporting the discharge/admit diagnosis, lab results, radiology results, to return to the emergency department if symptoms worsen or persist or if there are any questions or concerns that arise at home. Special discussion: Based on the patient's history, exam, and Dx evaluation, there is no indication for emergent intervention or inpatient Tx. It is understood by the patient/guardian that if the Sx's persist or worsen they need to return immediately for re-evaluation. 08/04 20:19 Order name: Basic Metabolic Panel 08/04 20:19 Order name: CBC with Diff cp 08/04 20:19 Order name: Magnesium cp 08/04 20:19 Order name: Troponin HS 08/04 20:19 Order name: COVID-19/FLU A+B 08/04 20:53 Order name: CBC with Automated Diff; Complete Time: 21:47 EDMS 08/04 21:47 Interpretation: Normal except: RDW 16.8; MPV 6.8. 08/04 20:19 Order name: XRAY Chest (1 view) 08/04 20:19 Order name: EKG; Complete Time: 20:20 cp 08/04 20:56 Order name: RAD; Complete Time: 21:47 EDMS 08/04 21:47 Interpretation: Report reviewed. 08/04 21:00 Order name: Basic Metabolic Panel; Complete Time: 21:47 EDMS 02 21:47 Interpretation: Normal except: NA 134; GLUC 153. 08/04 21:00 Order name: Troponin High Sensitivity; Complete Time: 21:47 EDMS 08/04 21:48 Interpretation: Troponin HS 14.5; Reviewed. 08/04 21:00 Order name: Magnesium; Complete Time: 21:47 EDMS 08/04 21:19 Order name: COVID-19/FLU A+B; Complete Time: 21:47 EDMS 08/04 20:19 Order name: Cardiac monitoring cp 08/04 20:19 Order name: EKG - Nurse/Tech; Complete Time: 20:37 cp 08/04 20:19 Order name: IV Saline Lock; Complete Time: 20:37 cp 08/04 20:19 Order name: Labs collected and sent; Complete Time: 20:37 cp 08/04 20:19 Order name: O2 Per Protocol cp 08/04 20:19 Order name: O2 Sat Monitoring cp EC:15 Rate is 84 beats/min. Rhythm is regular. ID interval is normal. QRS interval is normal. cp QT interval is normal. T waves are Inverted in lead aVR. Interpreted by me. Reviewed by me. Administered Medications: 22:07 Not Given (Patient Refused): Aspirin Chewable Tablet 324 mg PO once; 81 mg tablets x 4 kl Disposition Summary: 08/04/22 21:59 Discharge Ordered Location: Home cp Problem: new cp Symptoms: have improved cp Condition: Stable cp Diagnosis - Chest pain, unspecified cp - Disorder of teeth and supporting structures, unspecified cp Followup: cp - With: Private Physician - When: 1 - 2 days - Reason: Recheck today's complaints Discharge Instructions: - Discharge Summary Sheet cp - Nonspecific Chest Pain, Adult cp - Dental Pain cp - Aspirin and Your Heart cp Forms: - Medication Reconciliation Form cp - Thank You Letter cp - Antibiotic Education cp - Prescription Opioid Use cp Prescriptions: - Amoxicillin 875 mg Oral Tablet - take 1 tablet by ORAL route every 12 hours for 10 days; 20 tablet; Refills: 0, cp Product Selection Permitted Signatures: Dispatcher [employer] EDMS Deandre Sharma PA PA cp Natalee Newman RN RN jh5 Natty Masters RN kl Corrections: (The following items were deleted from the chart) 08/05 21:54 08/04 20:25 The patient or guardian reports chest pain that is located primarily in the cp anterior chest wall, cp
[2022-08-04 23:10] VITALS: TEMP 98.7; O2SAT 100
[2022-08-04 23:11] VITALS: BP 150/98
--- NOTE | 2022-08-05 17:11 | EKG ---
Test Date: 2022-08-04 Test Time: 20:11:59 Runner Man: TONY MEASUREMENT RESULTS: Intervals: Rate: 84 RI: 142 QRSD: 76 QT: 338 QTc: 399 [place]: P: 53 RI: 142 QRS: 21 T: 29 INTERPRETIVE STATEMENTS: Normal sinus rhythm Normal ECG Compared to ECG 06/24/2022 03:24:40 No significant changes Electronically Signed On 08-05-22 17:08:47 [employer] by Cristhian Hernandez
== END 2022-08-04 22:14 | disposition home or self-care (01) ==
LOC: ER 19:10
DX: R07.89 Other chest pain (principal); K08.9 Disorder of teeth and supporting structures, unspecified; F17.210 Nicotine dependence, cigarettes, uncomplicated; F10.20 Alcohol dependence, uncomplicated; Z20.822 Contact with and (suspected) exposure to COVID-19
CPT/HCPCS: 0240U; 36415; 71045; 80048; 83735; 84484; 85025; 93005; 99283

== ENCOUNTER 2023-04-17 19:45 | Inpatient (IN) | payer SELFPAY ==
--- OUTSIDE RECORDS SUMMARY | 2023-04-17 19:51 | XMS REPORT | Continuity of Care Document ---
:1970 Author Organization [facility] t Address [address] [place] [address] Care Team Providers Name Role Phone Pcp-None Primary Care Physician Unavailable HEMANT KLEIN Attending Clinician Unavailable Hemant Klein MD Attending Clinician Pan Pinto Attending Clinician Unavailable JESSICA PRADO Attending Clinician Unavailable Rayray Driscoll MD Attending Clinician Jessica Prado MD Attending Clinician Oswald Murphy MD Attending Clinician DIYA CHOWDHURY Attending Clinician Unavailable Diya Chowdhury DO Attending Clinician Fidel Cuellar Attending Clinician Unavailable DIRK YARBROUGH Attending Clinician Unavailable Leticia Rowland Attending Clinician Dirk Yarbrough MD Attending Clinician Faye Portillo LVN Attending Clinician Pia Reddy Attending Clinician Vinnie Navarro Attending Clinician Unavailable OSWALD MURPHY Admitting Clinician Unavailable Oswald Murphy MD Admitting Clinician DIYA CHOWDHURY Admitting Clinician Unavailable Leticia HAMEED Admitting Clinician Unavailable JESSICA PRADO Admitting Clinician Unavailable Jessica Prado MD Admitting Clinician Payers Payer Name Policy Type Policy Number Effective Date Expiration Date Rhoda xiong [facility] [id number] 2022 ALF 00:00:00 Problems Condition Condition Condition Status Onset Resolution Last Treating Co mments Source Name Details Category Date Date Treatment Clinician Date 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 00:00: [place] with with 00 Medical complicati complicati Br anch on on Type 2 Type 2 Disease Active Univers diabetes diabetes 7-10 ity of mellitus mellitus 00:00: [place] with other with other 00 Me dical specified specified Bran ch complicati complicati on on Dyslipidem Dyslipidem Disease Active U eloina ia ia 7-10 ity of 00:00: [place] [...] No Known DA Active U [facility] Drug 4-25 Allergie 00:00: s 00 No Known DA Active U [facility] Drug 9-16 Allergie 00:00: s 00 No Known DA Active U [facility] Drug 3-29 Allergie 00:00: s 00 No Known DA Active U 2019-06 [facility] Drug 2-16 Allergie 00:00: s 00 No Known DA Active U 2019-06 [facility] Drug 2-15 Allergie 00:00: s 00 No Known DA Active U 2019-06 [facility] Drug 2-02 Allergie 00:00: s 00 Trazodon Propensi Active Other - See 2016-0 U nivers e ty to comments 4-17 ity of adverse 00:00: [place] reaction 00 Medical s Branch TRAZODON DRUG Active Other-Cmnt 2015-0 Univ ers E INGREDI 4-17 ity of 00:00: [place] 00 [facility] Social History Social Habit Start Date Stop Date Quantity Comments Source History of Cigarette Smoker Universi ty of tobacco use [facility] Exposure to 2022-11-01 2022-11-11 Not sure University of SARS-CoV-2 00:00:00 13:57:00 [facility] (event) [place] Tobacco use and 2022-08-10 2022-08-10 User of smokeless Un iversity of exposure 00:00:00 00:00:00 tobacco [facility] Alcohol intake 2022-08-10 2022-08-10 Current drinker Unive rsity of 00:00:00 00:00:00 of alcohol [facility] (finding) [place] Tobacco Comment 2022-08-10 2022-08-10 1/2 a pack a day Uni versity of 00:00:00 00:00:00 [facility] Sex [birth year] Universit y of 00:00:00 00:00:00 [facility] Smoking Status Start Date Stop Date Source Smokes tobacco daily 2022-08-10 00:00:00 Univers ity of [facility] Medications Ordered Filled Start Stop Current Ordering Indication Dosage Frequency Signature Comments Components Source Medication Medication Date Date Medication? Clinician (SIG) Name Name NaCl 0.9% 2022- No 1000mL at 999 Uni vers (NS) bolus 11-11 05-23 mL/hr, ity of infusion 19:45: 20:23 1,000 mL, Osmani as 1,000 mL 00 :00 IV Medical Piggyback, Branch ONCE, 1 dose, On Thu11/11/22 at 1445, STAT multivitami Yes 1{tbl} 1 tablet, Univers n tablet 1 2-21 Oral, ity of tablet 15:00: DAILY, [place] 00 First dose Medical on Thu [place] 08/12/22 at 0900, Until Discontinu ed, Routine foLIC acid Yes 1mg 1 mg, Univer s (FOLATE) 2-21 Oral, ity of tablet 1 mg 15:00: [place] 00 First dose Medical on Thu [place] 08/12/22 at 0900, Until Discontinu ed, Routine foLIC acid 2022- No [id number] 1mg Take 1 Univers 1 mg tablet 08-1224 tablet by it y of 00:00: 04:59 mouth in [place] 00 :00 the [facility] Branch for 30 days. oxazepam 2022- No 15mg [Order 1 Univ ers (SERAX) 08-11 Start] ity of capsule 15 20:00: 19:59 Name: [place] mg 00 :00 oxazepam Medical (SERAX) [place] capsule 15 mg Signed Summary: 15 mg, Oral, Q8H TAPER, 3 doses, First dose on Thu08/11/22 at 1400, Last dose on Thu08/12/22 at 0600, Routine [Order 1 End] [Order 2 Start] Name: oxazepam (SERAX) capsule 15 mg Signed Summary: 15 mg, Oral, Q12H TAPER, 2 doses, First dose on Thu08/12/22 at 1800, Last dose on Thu08/13/22 at 0600, Routine [Order 2 End] thiamine 0 Yes 100mg 100 mg, Unive rs (VITAMIN 2-20 Oral, ity of B1) tablet 16:15: DAILY, [place] 100 mg 00 First dose Medical on [facility] 08/11/22 at 1015, Until Discontinu ed, Routine enoxaparin 0 Yes 40mg 40 mg, Unive rs (LOVENOX) -19 Subcutaneo ity of injection 23:00: [place], [place] 40 [place] 00 First dose Medical on [facility] 08/10/22 at 1700, Until Discontinu ed, Routine NaCl 0.9% 0 Yes 1000mL at 125 Univ ers (NS) IV 2-19 mL/hr, IV ity of infusion 15:00: Infusion, [place] 1,000 mL 00 CONTINUOUS Medic al , Starting Branch on [place] 08/10/22 at 0900, Until Discontinu ed, Routine foLIC acid 2022- No 5mg IV Univer s (FOLATE) 5 08-10 Piggyback, it y of mg in NaCl 15:00: 16:14 DAILY, [place] 0.9% (NS) 00 :47 First dose Medi yudy piggyback on [place] Branch 08/10/22 at 0900, Until Discontinu ed, 50 mL thiamine 2022-0 202- No 100mg IV Univers (VITAMIN 08-10 Piggyback, ity of B1) 100 mg 15:00: 16:08 DAILY, 1 [place] in NaCl 00 :00 dose, Medical 0.9% (NS) First dose Bran ch piggyback on [place] 08/10/22 at 0900, 50 mL LORazepam 0 Yes 2mg 2 mg, Slow Un lorena (ATIVAN) 08-10 IV Push, ity of injection 2 14:52: Q4HPRN, [place] mg 57 Starting Medical on [place] Branch 08/10/22 at 0852, Until Discontinu ed, Routine, Seizures, Agitation, Anxiety Sliding 0 Yes Subcutaneo Univ ers Scale 2-19 us, AC+HS, ity of Insulin-Reg 13:30: First dose [place] ular + [facility] at Branch 0730, Until Discontinu ed, Routine oxazepam Yes 15mg 15 mg, Univers (SERAX) 08-10 Oral, ity of capsule 15 12:08: Q4HPRN, [place] mg 05 Starting Medical on [facility] 08/10/22 at 0608, Until Discontinu ed, Routine, Only while awake for DBP equal to or greater than 100, HR equal to or greater than 100. dextrose 0 Yes 250mL 250 mL, IV Un lorena 10% (D10W) 08-10 Infusion, ity of bolus 12:03: PRN - SEE [place] infusion 23 INSTRUCTIO Medic al 250 mL NS, Branch Administer over 60 Minutes, Other, If blood glucose is < or = 70 mg/dL and patient is unable to swallow or has mental status changes, Starting on [place] 08/10/22 at 0603
If blood glucose is < or = [...] blood glucose is < 80 mg/dL, repeat.
glucagon 0 Yes 1mg 1 mg, Univers (GLUCAGEN 08-10 Intramuscu ity of DIAGNOSTIC 12:03: lar, PRN, [place] KIT) 20 Starting Medical injection 1 on [facility] 08/10/22 at 0603, Until Discontinu ed, JACIEL, Blood Glucose < or = 70 mg/dL and patient is NPO, unable to swallow or has mental changes. ondansetron 0 Yes 4mg 4 mg, Slow Univers (ZOFRAN 08-10 IV Push, ity of (PF)) 12:02: Q6HPRN, [place] injection 4 53 Starting Medi yudy mg on [facility] 08/10/22 at 0602, Until Discontinu ed, Routine, Nausea and Vomiting (N/V) ibuprofen Yes 200mg 200 mg, Univ ers (MOTRIN IB) 08-10 Oral, ity of tablet 200 12:02: Q6HPRN, [place] mg 45 Starting Medical on [facility] 08/10/22 at 0602, Until Discontinu ed, Routine, Pain (scale 1-3) NaCl 0.9% 2022- No 1000mL at 999 Uni vers (NS) bolus 08-10 mL/hr, ity of infusion 10:15: 13:00 1,000 mL, [place] as 1,000 mL 00 :00 IV Medical Infusion, [place] ONCE, 1 dose, On [place] 08/10/22 at 0415, STAT LORazepam 2022- No .5mg 0.5 mg, Univ ers (ATIVAN) 08-10 Slow IV ity of injection 09:15: 09:19 Push, [place] 0.5 mg 00 :00 ONCE, 1 Medical dose, On [facility] 08/10/22 at 0315, STAT LORazepam 2022-0 2022- No 1mg 1 mg, Slow U nivers (ATIVAN) 08-10 IV Push, ity of injection 1 08:00: 07:05 ONCE NOW, [place] mg 00 :00 1 dose, On Medical [facility] 08/10/22 at 0200, STAT thiamine 2022- No 100mg 100 mg, Univ ers (VITAMIN 08-10 Intravenou ity of B1) 06:45: 06:52 s, ONCE, 1 [place] injection 00 :00 dose, On Medica l 100 mg [place] 08/10/22 at 0045, JACIEL LORazepam 2022- No 1mg 1 mg, Slow U nivers (ATIVAN) 08-10 IV Push, ity of injection 1 05:15: 05:22 ONCE, 1 [place] mg 00 :00 dose, On Medical Sat Branch 08/09/22 at 2315, STAT ketorolac 2021-06 No 15mg 15 mg, Unive rs (TORADOL) 004-06 Slow IV ity of injection 16:00: 14:50 Push, [place] 15 mg 00 :00 ONCE, 1 Medical dose, On Branch [place] 04/06/22 at 1100, JACIEL ondansetron 2021-06- No 4mg 4 mg, Slow Univers (ZOFRAN 004-06 IV Push, ity of (PF)) 15:45: 14:50 ONCE, 1 [place] injection 4 00 :00 dose, On Medi yudy mg [place] Branch 04/06/22 at 1045, JACIEL oxazepam 2021- No 15mg 15 mg, Univer s (SERAX) 12-31 07-13 Oral, Q12H ity o f capsule 15 06:28: 06:29 TAPER, 2 [place] mg 17 :00 doses, Medical First dose Branch on Thu12/31/21 at 0130, Last dose on Thu12/31/21 at 1330, Routine multivitami Yes [id number] 1{tbl} Take 1 Univers n tablet 12-31 [id number] tablet by ity of 00:00: mouth in [place] 00 the Medical morning. Branch thiamine Yes [id number] 100mg Take 1 Univers 100 mg 12-31 [id number] tablet by ity of tablet 00:00: mouth in [place] 00 the Medical morning. Branch aspirin 81 Yes [id number] 81mg Take 1 Univers mg chewable 12-31 [id number] tablet by i ty of tablet 00:00: mouth in [place] 00 the Medical morning. Branch multivitami 2021-0 Yes [id number] 1{tbl} Take 1 Univers n tablet 7-12 [id number] tablet by ity of 00:00: mouth in [place] 00 the Medical morning. Branch thiamine 2021-0 Yes [id number] 100mg Take 1 Univers 100 mg 7-12 [id number] tablet by ity of tablet 00:00: mouth in [place] 00 the Medical morning. Branch aspirin 81 2021-0 Yes [id number] 81mg Take 1 Univers mg chewable 7-12 [id number] tablet by i ty of tablet 00:00: mouth in [place] 00 the Medical morning. Branch multivitami 2021-0 Yes [id number] 1{tbl} Take 1 Univers n tablet 7-12 [id number] tablet by ity of 00:00: mouth in [place] 00 the Medical morning. Branch thiamine 2021-0 Yes [id number] 100mg Take 1 Univers 100 mg 7-12 [id number] tablet by ity of tablet 00:00: mouth in [place] 00 the Medical morning. Branch aspirin 81 2021-0 Yes [id number] 81mg Take 1 Univers mg chewable 7-12 [id number] tablet by i ty of tablet 00:00: mouth in [place] the Medical morning. Branch multivitami 2021-0 Yes [id number] 1{tbl} Take 1 Univers n tablet 7-12 [id number] tablet by ity of 00:00: mouth in [place] the Medical morning. Branch thiamine 2021-0 Yes [id number] 100mg Take 1 Univers 100 mg 7-12 [id number] tablet by ity of tablet 00:00: mouth in [place] 00 the Medical morning. Branch aspirin 81 2021-0 Yes [id number] 81mg Take 1 Univers mg chewable 7-12 [id number] tablet by i ty of tablet 00:00: mouth in [place] 00 the Medical morning. Branch multivitami 2021-0 Yes [id number] 1{tbl} Take 1 Univers n tablet 7-12 [id number] tablet by ity of 00:00: mouth in [place] 00 the Medical morning. Branch thiamine 2021-0 Yes [id number] 100mg Take 1 Univers 100 mg 7-12 [id number] tablet by ity of tablet 00:00: mouth in [place] 00 the Medical morning. Branch aspirin 81 2021-0 Yes [id number] 81mg Take 1 Univers mg chewable - [id number] tablet by i ty of tablet 00:00: mouth in [place] 00 the morning. Branch multivitami 2021-0 Yes [id number] 1{tbl} Take 1 Univers n tablet - [id number] tablet by ity of 00:00: mouth in [place] 00 the morning. Branch thiamine 2021-0 Yes [id number] 100mg Take 1 Univers 100 mg - [id number] tablet by ity of tablet 00:00: mouth in [place] the morning. Branch aspirin 81 2021-0 Yes [id number] 81mg Take 1 Univers mg chewable - [id number] tablet by i ty of tablet 00:00: mouth in [place] 00 the morning. Branch foLIC acid 2021-2021- No [id number] 1mg Take 1 Univers 1 mg tablet 12-31 [id number] tablet by ity of 00:00: 04:59 mouth in [place] 00 :00 the [facility] morning Branch for 30 days. foLIC acid 2021-2021- No [id number] 1mg Take 1 Univers 1 mg tablet 12-31 [id number] tablet by ity of 00:00: 04:59 mouth in [place] 00 :00 the [facility] morning Branch for 30 days. foLIC acid 2021-2021- No [id number] 1mg Take 1 Univers 1 mg tablet 12-31 [id number] tablet by ity of 00:00: 04:59 mouth in [place] 00 :00 the [facility] morning Branch for 30 days. metFORMIN 2021-0 Yes [id number] 500mg Take 1 Univers 500 mg 7-11 [id number] tablet by ity of tablet 00:00: mouth in [place] the Medical morning [place] and 1 tablet in the evening. Take with meals. metFORMIN 2021-0 Yes [id number] 500mg Take 1 Univers 500 mg 7-11 [id number] tablet by ity of tablet 00:00: mouth in [place] the [facility] morning [place] and 1 tablet in the evening. Take with meals. metFORMIN 2021-0 Yes [id number] 500mg Take 1 Univers 500 mg 7-11 [id number] tablet by ity of tablet 00:00: mouth in [place] [address] the [facility] morning [place] and 1 tablet in the evening. Take with meals. metFORMIN 2021-0 Yes [id number] 500mg Take 1 Univers 500 mg 7-11 [id number] tablet by ity of tablet 00:00: mouth in [place] [address] the [facility] morning [place] and 1 tablet in the evening. Take with meals. metFORMIN Yes [id number] 500mg Take 1 Univers 500 mg 7-11 [id number] tablet by ity of tablet 00:00: mouth in [place] [address] the [facility] morning [place] and 1 tablet in the evening. Take with meals. metFORMIN Yes [id number] 500mg Take 1 Univers 500 mg 7-11 [id number] tablet by ity of tablet 00:00: mouth in [place] [address] the [facility] morning [place] and 1 tablet in the evening. Take with meals. aspirin Yes 81mg 81 mg, Univers chewable 7-10 Oral, ity of tablet 81 14:00: DAILY, [place] mg 00 First dose Medical on [facility] 12/29/21 at 0900, Until Discontinu ed, Routine sulfur 2021- No [id number] 5mL 5 mL, Unive rs hexafluorid 12-29 Intravenou i ty of e microsphr 13:45: 13:45 s, ONCE, 1 [place] (LUMASON) 00 :00 dose, On Medica l injection 5 [facility] mL 12/29/21 at 0845, Routine
membership advisor approving Restricted medication : STEFANIE GORMAN enoxaparin Yes 40mg 40 mg, Unive rs (LOVENOX) 7-10 Subcutaneo ity of injection 13:00: us, Q24H, [place] 40 mg 00 First dose Medical on [facility] 12/29/21 at 0800, Until Discontinu ed, Routine Sliding Yes Subcutaneo Univ ers Scale 7-10 us, TID ity of Insulin - 13:00: MEALS+HS, [place] as Lispro 00 First dose Medical (HumaLOG) + on [facility] Fsbg 12/29/21 at Testing 0800, Until Discontinu ed, Routine diazePAM 2021- No 10mg 10 mg, Univer s (VALIUM) 12-29 07 Intravenou ity of injection 05:30: 04:40 s, ONCE, 1 [place] 10 mg 00 :00 dose, On Medical [facility] 12/29/21 at 0030, Routine diazePAM 2021- No 10mg 10 mg, Univer s (VALIUM) 7-10 07-10 Intravenou ity of injection 04:15: 03:17 s, ONCE, 1 [place] 10 mg 00 :00 dose, On Medical [facility] 12/28/21 Branch at 2315, Routine diazePAM 2021-0 Yes 5mg 5 mg, Univers (VALIUM) 7-10 Intravenou ity o f injection 5 03:45: s, QIDPRN, [place] mg 01 Starting Medical on [facility] 12/28/21 at 2245, Until Discontinu ed, Routine, Seizures, Agitation foLIC acid 0 Yes 1mg 1 mg, Univer s (FOLATE) 7-10 Oral, ity of tablet 1 mg 03:45: DAILY, [place] 00 First dose Medical on [facility] 12/28/21 at 2245, Until Discontinu ed, Routine thiamine 0 Yes 100mg 100 mg, Unive rs (VITAMIN 7-10 Oral, ity of B1) tablet 03:45: DAILY, [place] 100 mg 00 First dose Medical (after Branch last modificati on) on [facility] 12/28/21 at 2245, Until Discontinu ed, Routine glucagon 2021-0 Yes 1mg 1 mg, Univers (GLUCAGEN 7-10 Intramuscu ity of DIAGNOSTIC 03:42: [place], PRN, [place] KIT) 19 Starting Medical injection 1 on [facility] 12/28/21 at 2242, Until Discontinu ed, JACIEL, Blood Glucose < or = 70 mg/dL and patient is unable to swallow or has mental changes. dextrose 0 Yes 250mL 250 mL, IV Un lorena 10% (D10W) 7-10 Infusion, ity of bolus 03:42: PRN - SEE [place] infusion 19 INSTRUCTIO Medic al 250 mL [...] IV Push, ity of (PF)) 00:23: Q6HPRN, [place] injection 4 47 Starting Medi yudy mg on [facility] Branch 12/28/21 at 1923, Until Discontinu ed, Routine, Nausea and Vomiting (N/V) acetaminoph Yes 650mg 650 mg, Un lorena en 7-10 Oral, ity of (TYLENOL) 00:23: Q6HPRN, [place] tablet 650 37 Starting Medic al mg on [facility] Branch 12/28/21 at 1923, Until Discontinu ed, Routine, Pain (scale 1-3), Temp > 38.5 C chlordiazeP 2021- No 25mg 25 mg, Uni vers OXIDE 12-28- Oral, ity of (LIBRIUM) 23:15: 23:24 ONCE, 1 [place] capsule 25 00 :00 dose, On Medic al mg [facility] 12/28/21 Branch at 1815, JACIEL NaCl 0.9% 2021- No 2000mL at 999 Uni vers (NS) bolus 12-28- mL/hr, ity of infusion 22:45: 23:18 2,000 mL, [place] 2,000 mL 00 :00 IV Medical Infusion, Branch ONCE, 1 dose, On 12/28/21 at 1745, JCAIEL LORazepam 0 2021- No 1mg 1 mg, [...] Time Observation Value Comments Source Systolic blood 2022-11-11 20:31:31 116 mm[Hg] Univer sity of pressure [facility] Diastolic blood 2022-11-11 20:31:31 77 mm[Hg] [facility] Heart rate 2022-11-11 20:31:31 84 /min Universi ty of [place] [facility] Respiratory rate 2022-11-11 20:31:31 12 /min Univ ersity of [place] [facility] Oxygen saturation in 2022-11-11 20:31:31 90 /min University of Arterial blood by [place] [employer] yudy Pulse oximetry Branch Body temperature 2022-11-11 18:49:00 37.11 Theresa Univ ersity of [place] [facility] Body height 2022-11-11 18:49:00 160 cm Universi ty of [place] [facility] Body weight 2022-11-11 18:49:00 68.04 kg Universi ty of [place] [facility] BMI 2022-11-11 18:49:00 26.57 kg/m2 Universi ty [facility] [place] [facility] Body temperature 2022-08-11 14:00:00 36.5 Theresa Univ ersity of [place] [facility] Systolic blood 2022-08-11 10:00:00 116 mm[Hg] Univer sity of pressure [place] [facility] Diastolic blood 2022-08-11 10:00:00 71 mm[Hg] Unive rsity of pressure [place] [facility] Heart rate 2022-08-11 10:00:00 70 /min Universi ty of [place] [facility] Respiratory rate 2022-08-11 10:00:00 16 /min Univ ersity of [place] [facility] Body weight 2022-08-11 10:00:00 65.499 kg Universi ty of [place] [facility] BMI 2022-08-11 10:00:00 25.58 kg/m2 Universi ty of [place] [facility] Oxygen saturation in 2022-08-11 10:00:00 100 /min University of Arterial blood by [place] [employer] yudy Pulse oximetry Branch Body height 2022-08-10 22:12:00 160 cm Universi ty of [place] [facility] Systolic blood 2022-04-06 16:00:00 125 mm[Hg] Univer sity of pressure [place] [facility] Diastolic blood 2022-04-06 16:00:00 75 mm[Hg] Unive rsity of pressure [place] [facility] Heart rate 2022-04-06 16:00:00 87 /min Universi ty of [place] [facility] Respiratory rate 2022-04-06 16:00:00 22 /min Univ ersity of [place] [facility] Oxygen saturation in 2022-04-06 16:00:00 98 /min University of Arterial blood by [place] Medi yudy Pulse oximetry Branch Body temperature 2022-04-06 14:41:00 37 Theresa Univ ersity of [place] [facility] Body height 2022-04-06 14:41:00 160 cm Universi ty of [place] [facility] Body weight 2022-04-06 14:41:00 63.504 kg Universi ty of [place] [facility] BMI 2022-04-06 14:41:00 24.80 kg/m2 Universi ty of [place] [facility] Systolic blood 2022-01-20 02:27:00 121 mm[Hg] Univer sity of pressure [place] [facility] Diastolic blood 2022-01-20 02:27:00 75 mm[Hg] Unive rsity of pressure [place] [facility] Heart rate 2022-01-20 02:27:00 79 /min Universi ty of [place] [facility] Respiratory rate 2022-01-20 02:27:00 12 /min Univ ersity of [place] [facility] Oxygen saturation in 2022-01-20 02:27:00 98 /min University of Arterial blood by [facility] Pulse oximetry Branch Body temperature 2022-01-19 22:19:00 36.44 Theresa Univ ersity of [place] [facility] Body weight 2022-01-19 22:19:00 60.328 kg Universi ty of [place] [facility] BMI 2022-01-19 22:19:00 23.56 kg/m2 Universi ty [facility] [place] [facility] Systolic blood 2021-12-30 20:52:00 134 mm[Hg] Univer sity of pressure [place] [facility] Diastolic blood 2021-12-30 20:52:00 76 mm[Hg] Unive rsity of pressure [place] [facility] Heart rate 2021-12-30 20:52:00 67 /min Universi ty of [place] [facility] Body temperature 2021-12-30 20:26:00 36.67 Theresa Univ ersity of [place] [facility] Oxygen saturation in 2021-12-30 20:26:00 99 /min University of Arterial blood by [facility] Pulse oximetry Branch Respiratory rate 2021-12-30 16:21:00 18 /min Univ ersity of [place] [facility] Body weight 2021-12-30 08:27:00 60.464 kg Universi ty of [place] [facility] BMI 2021-12-30 08:27:00 23.61 kg/m2 Universi ty [facility] [place] [facility] Body height 2021-12-29 01:29:00 160 cm [facility] Procedures Procedure Date / Time Performing Clinician Source Performed MAGNESIUM 2022-11-11 19:05:00 Hemant Klein [facility] BASIC METABOLIC PANEL 2022-11-11 19:05:00 Hemant Klein [facility] (NA, K, CL, CO2, GLUCOSE, Medica l Branch BUN, CREATININE, CA) ETHANOL 2022-11-11 19:05:00 Ernie [facility] CBC WITH DIFF 2022-11-11 19:05:00 Ernie [facility] POCT GLUCOSE (AUTOMATED) 2022-08-11 13:36:00 Jessica Pr[facility] PHOSPHORUS 2022-08-11 10:35:00 Eve [facility] MAGNESIUM 2022-08-11 10:35:00 Eve [facility] AMMONIA, PLASMA 2022-08-11 10:35:00 Eve [facility] COMP. METABOLIC PANEL 2022-08-11 10:35:00 Eve [facility] ([id number]) [facility] CBC WITH DIFF 2022-08-11 10:35:00 [facility] POCT GLUCOSE (AUTOMATED) 2022-08-11 02:15:00 Jessica Prado [facility] POCT GLUCOSE (AUTOMATED) 2022-08-10 23:10:00 OvJessica peralta [facility] POCT GLUCOSE (AUTOMATED) 2022-08-10 18:20:00 OvJessica peralta Uni [facility] POCT GLUCOSE (AUTOMATED) 2022-08-10 14:11:00 OvJessica peralta [facility] POCT GLUCOSE (AUTOMATED) 2022-08-10 10:59:00 Rayray Driscoll [facility] COVID-19 (ID NOW RAPID 2022-08-10 07:17:00 Rayray Driscoll [facility] TESTING) Medical Branch LAB ONLY COVID 2022-08-10 07:17:00 Rayray Driscoll [facility] HB ECG ROUTINE & RHYTHM 2022-08-10 06:03:48 Rayray Driscoll [facility] URINALYSIS 2022-08-10 05:46:00 [facility] URINE DRUG (IMMUNOASSAY) 2022-08-10 05:45:00 Rayray Driscoll [facility] SCREEN W/O REFLEX CREATINE KINASE 2022-08-10 05:16:[facility] 2022-08-10 05:16:00 [facility] MAGNESIUM 2022-08-10 05:16:00 [facility] TROPONIN I 2022-08-10 05:16:00 [facility] COMP. METABOLIC PANEL 2022-08-10 05:16:00 Rayray Driscoll [facility] ([id number] ETHANOL 2022-08-10 05:16:00 Rayray Driscoll [facility] CBC WITH DIFF 2022-08-10 05:16:00 Americo [facility] N-TERMINAL PRO-BNP 2022-08-10 05:16:00 Rayray Driscoll [facility] CRITICAL CARE 2022-08-10 04:52:00 Rayray Driscoll [facility] XR CHEST 1 VW 2022-04-06 14:51:50 Diya Chowdhury [facility] LIPASE 2022-04-06 14:42:00 Diya Chowdhury [facility] TROPONIN I 2022-04-06 14:42:00 Diya Chowdhury [facility] COMP. METABOLIC PANEL 2022-04-06 14:42:00 Diya Chowdhury [facility] ([id number]) [facility] CBC WITH DIFF 2022-04-06 14:42:00 Diya Chowdhury [facility] PROTHROMBIN TIME / INR 2022-04-06 14:42:00 [facility] 2022-04-06 14:42:00 Diya Chowdhury [facility] THRLAS [facility] LACTIC ACID WHOLE BLOOD 2022-01-20 00:22:00 Leticia Hameed [facility] URINE DRUG (IMMUNOASSAY) 2022-01-19 23:10:00 Leticia Hameed [facility] SCREEN URINALYSIS 2022-01-19 23:10:00 Leticia Hameed Riddhi [facility] TROPONIN I 2022-01-19 23:00:00 Leticia Hameed Riddhi [facility] COMP. METABOLIC PANEL 2022-01-19 23:00:00 Leticia Hameed [facility] ([id number]) Medical Branch LITHIUM 2022-01-19 23:00:00 Leticia Hameed Riddhi [facility] ETHANOL 2022-01-19 23:00:00 Leticia Hameed Riddhi [facility] CBC WITH DIFF 2022-01-19 23:00:00 Leticia Hameed [facility] COVID-19 (ID NOW RAPID 2022-01-19 23:00:00 Leticia Hameed [facility] TESTING) [facility] CT HEAD WO CONTRAST 2022-01-19 22:49:00 Leticia Hameed [facility] XR CHEST 1 VW 2022-01-19 22:41:00 Leticia Hameed Riddhi [facility] POCT GLUCOSE (AUTOMATED) 2022-01-19 22:25:00 Leticia Hameed [facility] POCT GLUCOSE (AUTOMATED) 2021-12-30 21:55:00 Jessica Prado [facility] POCT GLUCOSE (AUTOMATED) 2021-12-30 16:21:00 Jessica Prado [facility] POCT GLUCOSE (AUTOMATED) 2021-12-30 12:30:00 Jessica Prado [facility] HEPATIC FUNCTION PANEL 2021-12-30 09:28:00 Maira Gaitan [facility] ([id number]) (ALB,T.PRO,BILI Medical Branch T,BU/BC,ALT,AST,ALK PHOS) POCT GLUCOSE (AUTOMATED) 2021-12-30 02:11:00 Eve [facility] POCT GLUCOSE (AUTOMATED) 2021-12-29 21:41:00 Eve [facility] POCT GLUCOSE (AUTOMATED) 2021-12-29 16:37:00 Eve [facility] TRANSTHORACIC ECHO (TTE) 2021-12-29 13:05:00 Eve [facility] W/ CONTRAST Medical [facility] POCT GLUCOSE (AUTOMATED) 2021-12-29 12:41:00 Eve [facility] TROPONIN I 2021-12-29 09:42:00 Eve [facility] TROPONIN I 2021-12-29 04:55:00 Eve [facility] CT HEAD WO CONTRAST 2021-12-28 21:18:22 Pia Renteria [facility] AMMONIA, PLASMA 2021-12-28 21:00:00 Pia Renteria [facility] COVID-19 (ID NOW RAPID 2021-12-28 20:42:00 Pia Renteria [facility] TESTING) Medical [place] LAB ONLY COVID 2021-12-28 20:42:00 Pia Renteria [facility] INTERPRETATION [facility] URINE DRUG (IMMUNOASSAY) 2021-12-28 20:42:00 Pia Renteria [facility] COMPREHENSIVE DRUG [facility] SCREEN W/O REFLEX URINALYSIS 2021-12-28 20:40:00 Pia Renteria [facility] N-TERMINAL PRO-BNP 2021-12-28 20:40:00 Pia Renteria [facility] TROPONIN I 2021-12-28 20:40:00 Pia Renteria [facility] THYROID STIMULATING 2021-12-28 20:40:00 Jessica Prado [facility] HORMONE [facility] COMP. METABOLIC PANEL 2021-12-28 20:40:00 Pia Renteria [facility] ([id number]) [facility] LIPID PANEL ([id number])(TOTAL 2021-12-28 20:40:00 Demetrius Langford [facility] CHOLESTEROL, [facility] TRIGLYCERIDES, HDL) ETHANOL 2021-12-28 20:40:00 Demetrius Langford o [facility] CBC WITH DIFF 2021-12-28 20:40:00 Dexter [facility] GLYCOSYLATED HEMOGLOBIN 2021-12-28 20:40:00 Jessica Prado [facility] (A1C) [facility] PROTHROMBIN TIME / INR 2021-12-28 20:40[facility]W 2021-12-28 20:16:00 [facility]OUT[facility] & RHYTHM 2021-12-28 20:04:59 Pia Renteria [facility] Encounters Start End Encounter Admission Attending Care Care Encounter Source Date/Time Date/Time Type Type Clinicians Facility Department ID 2021-09-17 Inpatient [facility] [id number] [facility] 16:45:00 35 2020-06-06 Inpatient [facility] [id number] [facility] 16:07:00 05 2020-06-06 Inpatient [facility] [id number] [facility] 06:20:00 77 2020-06-05 Inpatient [facility] [id number] [facility] 19:35:00 25 2020-05-23 Inpatient [facility] [id number] [facility] 19:53:00 39 2020-05-23 Inpatient [facility] [id number] [facility] 19:53:00 39 2022-11-11 2022-11-11 Emergency X ERNIE [facility] ERT [id number] Univers 13:50:00 16:07:00 HEMANT rahman [facility] 2022-11-11 2022-11-11 Emergency Ernie MSYULIA 1.2.840.114 [id number] Univers 13:50:00 16:07:00 Hemant OTTO 350.1.13.10 i Mila 4.2.7.2.686 [facility] [id number] [place] [address] Branch 2022-10-14 2022-10-14 Emergency [facility] [id number] [facility] 20:59:00 20:59:00 66 2022-10-14 2022-10-14 Emergency Emergency Clareuwemily, [facility] [id number] [facility] 20:59:00 20:59:00 Lukuman 66 2022-08-09 2022-08-11 Outpatient X BELLENURA [facility] MARGO [id number] Univers 22:59:00 13:02:00 JESSICA rahman [facility] 2022-08-09 2022-08-11 Emergency Americo Rayray [facility] 1.2.840. 114 [id number] Univers 22:59:00 13:02:00 Jessica Prado 350.1.13.10 ity Oswald Tolliver 4.2.7.2.686 [facility] [id number] [address] 2022-04-06 2022-04-06 [facility] [id number] Univers 09:38:00 11:42:00 DIYA [facility] 2022-04-06 2022-04-06 Emergency [facility] 1.2.840.114 [id number] Univers 09:38:00 11:42:00 Diya OTTO 350.1.13.10 i ty stacey MARTINI 4.2.7.2.686 [facility] [id number] [address] 2022-03-07 2022-03-07 Emergency [facility] [id number] [facility] 12:38:00 12:38:00 74 2022-03-07 2022-03-07 Emergency Emergency Polo Fidel [facility] [id number] [facility] 12:38:00 12:38:00 74 2022-01-19 2022-01-19 Emergency X NNEKA, [facility] ERT [id number] Univers 17:18:00 22:00:00 DIRK rahman [facility] 2022-01-19 2022-01-19 Emergency Leticia Hameed [facility] 1.2.840. 114 [id number] Univers 17:18:00 22:00:00 Dirk Yarbrough 350.1.13.10 ity of [place] 4.2.7.2.686 [facility] [id number] [facility] 084 Branch 2021-12-31 2021-12-31 Transition EDMUNDO Portillo 1.2.840.114 [id number] Univers 00:00:00 00:00:00 of Care Faye RANKIN 350.1.13.10 ity of [place] 4.2.7.2.686 [facility] [id number] [facility] 403 Branch 2021-12-28 2021-12-30 Inpatient X EVE [facility] [id number] Univers 14:53:00 17:42:00 JESSICA ity of [facility] 2021-12-28 2021-12-30 [facility] Pia Renteria [facility] 1.2.840. 114 [id number] Univers 14:53:00 17:42:00 Encounter Aroldo Pradoiftikhar OTTO 350.1.13.10 ity [facility] 4.2.7.2.686 [facility] [id number] [facility] 081 Branch 2021-09-17 2021-09-17 Emergency [facility] [id number] [facility] 16:47:00 16:47:00 35 2020-06-06 2020-06-06 Emergency [facility] [id number] [facility] 16:07:00 16:07:00 05 Results Test Description Test Time Test Comments Results Result [facility] e Comments ETHANOL 2022-11-11 ALCOHOL<10mg/dL0 Universi ty of 19:45:56 11/11/2022 2:45 [facility]10 [id number] Toxic>100 Depression of 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>400 Fatalities Reported BASIC METABOLIC PANEL (NA, K, CL, CO2, GLUCOSE, BUN, 2022-10 19:41:47 CREATININE, CA) Test Item Value Reference Range Interpretation Comme nts NA (test code = 3922735159) 138 mmol/L 135-145 K (test code = 9202703276) 4.8 mmol/L 3.5-5.0 CL (test code = 6435652926) 103 mmol/L 98-108 CO2 TOTAL (test code = 2105207292) 26 mmol/L 23-31 AGAP (test code = 8342528896) 9 2-16 BUN (test code = 9353130623) 17 mg/dL 7-23 GLUCOSE (test code = 9597127094) 219 mg/dL 70-110 H CREATININE (test code = 0.72 mg/dL 0.60-1.25 9902596834) CALCIUM (test code = 9069102679) 10.0 mg/dL 8.6-10.6 eGFR (test code = 9271635577) 114.6 mL/min/1.73m2 JUAN ALBERTO (test code = JUAN ALBERTO) Association of Glomerular Filtration Rate (GFR) and Staging of Kidney Disease* + +-------- + ------+| GFR (mL/min/1.73 m2) ?| With Kidney Damage ?| ?Without Kidney Damage+ +-- + +| ?>90 ?| ?Stage one ?| ? Normal ?+ +------- + -------+| ?60-89 ?| ?Stage two ?| ? Decreased GFR ? + +-------- + ------+| ?30-59 ?| ?Stage three ?| ? Stage three ? + +-------- + ------+| ?15-29 ?| ?Stage four ? | ? Stage four ?+ +------- + -------+| ?<15 (or dialysis) ? ?| ?Stage five ? | ? Stage five ?+ +------- + -------+ *Each stage assumes the associated GFR [...] or abnormalities in imaging tests). Lab Interpretation (test code = Abnormal 64798-4) [facility]47 Test Item Value Reference Range Interpretation Comments MAGNESIUM (test code = 6457721073) 1.8 mg/dL 1.7-2.4 Lab Interpretation (test code = Normal 60745-6) [facility] WITH [id number] 19:25:26 Test Item Value Reference Range Interpretation Comments WBC (test code = 6.82 See_Comment [Automated 6690-2) message] The sy stem which generated this result transmitted reference range : 4.20 - 10.70 10*3/?L. The reference range was not used to interpret this result as normal/abnormal . RBC (test code = 4.98 See_Comment [Automated 789-8) message] The sy stem which generated this result transmitted reference range : 4.26 - 5.52 10*6/?L. The reference range was not used to interpret this result as normal/abnormal . HGB (test code = 15.7 g/dL 12.2-16.4 718-7) HCT (test code = 46.3 % 38.4-49.3 4544-3) MCV (test code = 93.0 fL 81.7-95.6 787-2) MCH (test code = 31.5 pg 26.1-32.7 785-6) MCHC (test code = 33.9 g/dL 31.2-35.0 786-4) RDW-SD (test code = 46.0 fL 38.5-51.6 96379-1) RDW-CV (test code = 13.5 % 12.1-15.4 788-0) PLT (test code = 237 See_Comment [Automated 777-3) message] The sy stem which generated this result transmitted reference range : 150 - 328 10*3/ ?L. The reference r elba was not used to interpret this result as normal/abnormal . MPV (test code = 8.9 fL 9.8-13.0 L 98608-4) NRBC/100 WBC (test 0.0 See_Comment [Automat ed code = 9925549211) message] The system which generated this result transmitted reference range : 0.0 - 10.0 /100 WBCs. The refer ence range was not u sed to interpret th is result as normal/abnormal . NRBC x10^3 (test code See_Comment [Auto mated = 6289947434) message] The s ystem which generated this result transmitted reference range : 10*3/?L. The reference range was not used to interpret this result as normal/abnormal . GRAN MAT (NEUT) % 71.2 % (test code = 770-8) IMM GRAN % (test code 0.30 % = 6003591775) LYMPH % (test code = 18.2 % 736-9) MONO % (test code = 8.4 % 5905-5) EOS % (test code = 1.0 % 713-8) BASO % (test code = 0.9 % 706-2) GRAN MAT x10^3(ANC) 4.86 10*3/uL 1.99-6.95 (test code = 1791336343) IMM GRAN x10^3 (test 0.00-0.06 code = 3521838866) LYMPH x10^3 (test code 1.24 10*3/uL 1.09-3.23 = 731-0) MONO x10^3 (test code 0.57 10*3/uL 0.36-1.02 = 742-7) EOS x10^3 (test code = 0.07 10*3/uL 0.06-0.53 711-2) BASO x10^3 (test code 0.06 10*3/uL 0.01-0.09 = 704-7) Lab Interpretation Abnormal (test code = 77228-4) [facility] Rflx Cult/[id number] 22:20:00 Test Item Value Reference Range Interpretation Comments Color,Urine (test code = UCOL) Yellow Yellow Clarity,Urine (test code = Clear Clear UCLAR) Ph, Urine (test code = UPH) 7.0 5.0-9.0 N Specific Boley,Urine (test 1.020 1.005-1.030 N code = USG) Blood,Urine (test code = UBLD) Negative mg/dL Negative Protein,Urine (test code = Negative mg/dL Negative UPRO) Glucose,Urine (UA) (test code Negative mg/dL Negative = UGLU) Ketones,Urine (test code = Negative mg/dL Negative UKET) Nitrate,Urine (test code = Negative Negative UNIT) Bilirubin,Urine (test code = Negative mg/dL Negative UBIL) Urobilinogen,Urine (test code 1.0 E.U./dL Normal = UURO) Leukocyte Esterase,Urine (test Negative mg/dL Negative code = ULEU) Drug Screen,[id number] 22:20:00 Test Item Value Reference Range Interpretation Comments [...] code = UPROP) Complete Blood Count Auto [id number] 21:21:00 Test Item Value Reference Range Interpretation Comments White Blood Count (test code = 7.6 x10 3/uL 4.4-10.5 N WBCT) Red Blood Count (test code = 4.50 x10 6/uL 4.10-5.70 N RBC) Hemoglobin (test code = HGBT) 13.9 g/dL 13.4-17.4 N Hematocrit (test code = HCTT) 41.3 % 38.7-52.0 N Mean Corpuscular Volume (test 91.80 fL 80.00-100.00 N code = MCV) Mean Corpuscular Hemoglobin 30.9 pg 27.0-32.5 N (test code = MCH) Mean Corpuscular HGB Conc (test 33.70 g/dL 32.00-37.50 N code = MCHC) RDW Coefficient of Variation 13.9 % 11.5-14.5 N (test code = RDWCV) Platelet Count (test code = 276 x10 3/uL 140.0-440.0 N PLTT) Mean Platelet Volume (test code 8.7 fL = MPV) Immature Granulocytes % (Auto) 0.3 % 0.0-5.0 N (test code = IMMGRAN%) Neutrophils % (Auto) (test code 66.1 % 36.0-70.0 N = NE%) Lymphocytes % (Auto) (test code 25.8 % 12.0-44.0 N = LY%) Monocytes % (Auto) (test code = 7.0 % 0.0-11.0 N MO%) Eosinophils % (Auto) (test code 0.3 % 0.0-7.0 N = EO%) Basophils % (Auto) (test code = 0.5 % 0.0-2.0 N BA%) Immature Granulocytes # (Auto) 0.02 x10 3/uL (test code = IMMGRAN#) Neutrophils # (Auto) (test code 5.0 x10 3/uL 1.6-7.4 N = NE#) Lymphocytes # (Auto) (test code 1.96 x10 3/uL 0.50-4.60 N = LY#) Monocytes # (Auto) (test code = 0.53 x10 3/uL 0.00-1.20 N MO#) Eosinophils # (Auto) (test code 0.02 x10 3/uL 0.00-0.74 N = EO#) Basophils # (Auto) (test code = 0.04 x10 3/uL 0.00-0.21 N BA#) nRBC Abs (test code = NRBCA) 0 nRBC Pct (test code = NRBCP) 0 % Comprehensive Metabolic [id number] 21:21:00 Test Item Value Reference Range Interpretation Comments SODIUM (test code = NA) 139.0 mmol/L 136.0-145.0 N Potassium,K (test code = 4.0 mmol/L 3.0-5.1 N K) Chloride (test code = 108 mmol/L 98-107 H CL) Carbon Dioxide (test 26 mmol/L 20-31 N code = CO2) Anion Gap (test code = 5 mmol/L 5-15 N GAP) Blood Urea Nitrogen 13 mg/dL 9-23 N (test code = BUN) Creatinine (test code = 0.75 mg/dL 0.55-1.02 N CREATT) Creatinine Clr Calc 92.53 mL/min Pharmacy (test code = CRCLPHA) Estimated Glomerular 109 See_Comment Reporte d eGFR is Filt Rate (test code = based on the EGFR.XX) CKD-EPI 2020 equation thatdo es not use a race coefficient. Additional information can be found at:[id number]_m cb_ egfr_summary_fl evelin 5.pdf (kidney.o rg) [Automated message] The system which generated this result transmit naomie reference range : >=90 ml/min/1.73m2. The reference range was not used to interpret this result as normal/abnormal . BUN/Creatinine Ratio 17 ratio 10-20 N (test code = BCRATIO) Glucose (test code = 128 mg/dL 74-106 H GLU) Osmolality,Calculated 289.6 (test code = OSMOC) Calcium (test code = CA) 10.7 mg/dL 8.3-10.6 H Bilirubin,Total (test 0.3 mg/dL 0.2-1.1 N code = BILIT) Aspartate Amino 16 U/L 0-34 N Transferase (test code = AST) Alanine Aminotransferase 15 U/L 10-49 N (test code = ALT) Total Protein (test code 6.6 g/dL 5.7-8.2 N = TP) Albumin Level (test code 4.2 g/dL 3.2-4.8 N = ALB) Globulin (test code = 2.4 mg/dL 2.3-3.5 N GLOB) Albumin/Globulin Ratio 1.8 ratio 0.8-2.0 N (test code = AGRATIO) Alkaline Phosphatase 134 U/L 46-116 H (test code = ALP) Ethanol [id number] 21:21:00 Test Item Value Reference Range Interpretation Comments Ethanol (test code < 3 mg/dL The pharm acological = ETOH) response to blo od alcohol levels mayvary from individual to i ndividual. The fatal surinder ntrationhas been reported t o be >400mg/dL. POCT GLUCOSE (AUTOMATED)2022-08-11 13:40:35 Test Item Value Reference Range Interpretation Comments POCT GLU (test code = 6095805822) 121 mg/dL 70-110 H Lab Interpretation (test code = Abnormal 04927-0) [facility] GLUCOSE (AUTOMATED)2022-08-11 02:18:58 Test Item Value Reference Range Interpretation Comments POCT GLU (test code = 3860569874) 183 mg/dL 70-110 H Lab Interpretation (test code = Abnormal 88046-6) [facility] GLUCOSE (AUTOMATED)2022-08-10 23:16:11 Test Item Value Reference Range Interpretation Comments POCT GLU (test code = 9847735944) 176 mg/dL 70-110 H Lab Interpretation (test code = Abnormal 04896-5) [facility] GLUCOSE (AUTOMATED)2022-08-10 18:22:51 Test Item Value Reference Range Interpretation Comments POCT GLU (test code = 0683614182) 165 mg/dL 70-110 H Lab Interpretation (test code = Abnormal 20852-7) [facility] GLUCOSE (AUTOMATED)2022-08-10 14:18:05 Test Item Value Reference Range Interpretation Comments POCT GLU (test code = 3038115037) 138 mg/dL 70-110 H Lab Interpretation (test code = Abnormal 61300-9) [facility] GLUCOSE (AUTOMATED)2022-08-10 11:01:21 Test Item Value Reference Range Interpretation Comments POCT GLU (test code = 9363217519) 143 mg/dL 70-110 H Lab Interpretation (test code = Abnormal 15891-3) [facility] [id number] 06:51:18 Test Item Value Reference Range Interpretation Comments TROPONIN I (test code = 0.008 ng/mL <=0.034 3577138470) JUAN ALBERTO (test code = JUAN ALBERTO) [...] biotin. Lab Interpretation Normal (test code = 51153-5) [facility] [id number] 06:47:37 Test Item Value Reference Range Interpretation Comments NT-proBNP (test code = 37 pg/mL <=125 8952731937) JUAN ALBERTO (test code = JUAN ALBERTO) Biotin has been reported to cause a negative bias, interpret results relative to patient's use of biotin. 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OLIC PANEL (69698) 2022-08-10 06:19:15 Test Item Value Reference Range Interpretation Comments NA (test code = 135 mmol/L 135-145 2966864937) K (test code = 4.3 mmol/L 3.5-5.0 3726256011) CL (test code = 98 mmol/L 98-108 5193049984) CO2 TOTAL (test code = 30 mmol/L 23-31 4349855754) AGAP (test code = 7 2-16 1153157008) BUN (test code = 11 mg/dL 7-23 6166556546) GLUCOSE (test code = 153 mg/dL 70-110 H 9333790793) CREATININE (test code = 0.77 mg/dL 0.60-1.25 8879962198) TOTAL BILI (test code = 0.9 mg/dL 0.1-1.1 7900632776) CALCIUM (test code = 10.0 mg/dL 8.6-10.6 0894707736) T PROTEIN (test code = 7.7 g/dL 6.3-8.2 6303168543) ALBUMIN (test code = 4.6 g/dL 3.5-5.0 7575524283) ALK PHOS (test code = 92 U/L 34-122 0290119778) ALTv (test code = 35 U/L 5-50 1742-6) AST(SGOT) (test code = 42 U/L 13-40 H 6858028833) eGFR (test code = 106.1 mL/min/1.73m2 6008244193) JUAN ALBERTO (test code = JUAN ALBERTO) [...] tests). Lab Interpretation Abnormal (test code = 48958-4) [facility]UM2023-02-19 06:19:15 Test Item Value Reference Range Interpretation Comments MAGNESIUM (test code = 1153150942) 2.2 mg/dL 1.7-2.4 Lab Interpretation (test code = Normal 35964-5) [facility] Center[facility] 06:18:55 Test Item Value Reference Range Interpretation Comments LIPASE (test code = 6829119153) 18 U/L 0-220 Lab Interpretation (test code = Normal 70763-6) [facility] CenterCREATINE [id number] 06:18:55 Test Item Value Reference Range Interpretation Comments CK (test code = 2200446954) 174 U/L 33-194 Lab Interpretation (test code = Normal 72376-6) [facility] Center[facility] WITH [id number] 06:02:35 Test Item Value Reference Range Interpretation Comments WBC (test code = 7.50 See_Comment [Automated 7306-2) message] The sy stem which generated this result transmitted reference range : 4.20 - 10.70 10*3/?L. The reference range was not used to interpret this result as normal/abnormal . RBC (test code = 4.80 See_Comment [Automated 789-8) message] The sy stem which generated this result transmitted reference range : 4.26 - 5.52 10*6/?L. The reference range was not used to interpret this result as normal/abnormal . HGB (test code = 14.7 g/dL 12.2-16.4 718-7) HCT (test code = 45.4 % 38.4-49.3 4544-3) MCV (test code = 94.6 fL 81.7-95.6 787-2) MCH (test code = 30.6 pg 26.1-32.7 785-6) MCHC (test code = 32.4 g/dL 31.2-35.0 786-4) RDW-SD (test code = 50.2 fL 38.5-51.6 28943-9) RDW-CV (test code = 14.3 % 12.1-15.4 788-0) PLT (test code = 241 See_Comment [Automated 777-3) message] The sy stem which generated this result transmitted reference range : 150 - 328 10*3/ ?L. The reference r elba was not used to interpret this result as normal/abnormal . MPV (test code = 8.6 fL 9.8-13.0 L 52438-7) NRBC/100 WBC (test 0.0 See_Comment [Automat ed code = 1459759554) message] The system which generated this result transmitted reference range : 0.0 - 10.0 /100 WBCs. The refer ence range was not u sed to interpret th is result as normal/abnormal . NRBC x10^3 (test code See_Comment [Auto mated = 9414809321) message] The s ystem which generated this result transmitted reference range : 10*3/?L. The reference range was not used to interpret this result as normal/abnormal . GRAN MAT (NEUT) % 63.9 % (test code = 770-8) IMM GRAN % (test code 0.50 % = 1851210981) LYMPH % (test code = 17.6 % 736-9) MONO % (test code = 16.5 % 5905-5) EOS % (test code = 0.7 % 713-8) BASO % (test code = 0.8 % 706-2) GRAN MAT x10^3(ANC) 4.79 10*3/uL 1.99-6.95 (test code = 9444715671) IMM GRAN x10^3 (test 0.04 10*3/uL 0.00-0.06 code = 3003709855) LYMPH x10^3 (test code 1.32 10*3/uL 1.09-3.23 = 731-0) MONO x10^3 (test code 1.24 10*3/uL 0.36-1.02 H = 742-7) EOS x10^3 (test code = 0.05 10*3/uL 0.06-0.53 L 711-2) BASO x10^3 (test code 0.06 10*3/uL 0.01-0.09 = 704-7) Lab Interpretation Abnormal (test code = 59309-1) [id number] Test Item Value Reference Interpretation Comments Range TROPONIN I (test 0.007 ng/mL See_Comment [Automated code = [id number]) message] The system which generated this result [...] biotin. Lab Interpretation Normal (test code = 17298-2) [facility] Test Item Value Reference Range Interpretation Comments APTT Patient (test See_Comment [Automat ed code = 3173-2) message] The system which generated this result transmitted reference range : 23 - 38 Seconds . The reference range was not used to interpr et this result as normal/abnormal . JUAN ALBERTO (test code = JUAN ALBERTO) The [facility] patient population mean normal value for aPTT is 30 seconds. Lab Interpretation Normal (test code = 49632-5) [facility] CenterPROTHROMBIN TIME / [id number] 15:06:28 Test Item Value Reference Range Interpretation [...] tions. Lab Interpretation (test Normal code = 15058-0) [facility] CenterCOMP. METABOLIC PANEL (38922)2022-04-06 15:03:31 Test Item Value Reference Range Interpretation Comments NA (test code = 136 mmol/L 135-145 2576586044) K (test code = 5.0 mmol/L 3.5-5 2021359176) CL (test code = 104 mmol/L 98-108 4352981459) CO2 TOTAL (test code = 21 mmol/L 23-31 L 6552104233) AGAP (test code = 2-16 5647664549) BUN (test code = 11 mg/dL 7-23 1095658719) GLUCOSE (test code = 162 mg/dL 70-110 H 3842536017) CREATININE (test code = 0.52 mg/dL 0.6-1.25 L 5286619574) TOTAL BILI (test code = 1.0 mg/dL 0.1-1.2 8568841283) CALCIUM (test code = 9.3 mg/dL 8.6-10.6 2058766514) T PROTEIN (test code = 7.4 g/dL 6.3-8.2 1997998899) ALBUMIN (test code = 4.4 g/dL 3.5-5 3509980366) ALK PHOS (test code = 134 U/L 34-122 H 3451821595) ALTv (test code = 17 U/L 5-50 2-6) AST(SGOT) (test code = 38 U/L 13-40 0461689449) eGFR (test code = mL/min/1.73m2 8197701702) JUAN ALBERTO (test code = JUAN ALBERTO) [...] tests). Lab Interpretation Abnormal (test code = 46887-5) [facility] CenterLIPASE, [id number] 15:03:31 Test Item Value Reference Range Interpretation Comments LIPASE (test code = 9446625669) 29 U/L 0-220 Lab Interpretation (test code = Normal 04811-5) [facility] CenterCB WITH [id number] 14:51:49 Test Item Value Reference Range Interpretation [...] RDW-SD (test code = 45.9 fL 38.5-51.6 83106-8) RDW-CV (test code = 13.3 % 12.1-15.4 788-0) PLT (test code = See_Comment [Automated 777-3) message] The sy stem which generated this result transmitted reference range : 150 - 328 10*3/ ?L. The reference r elba was not used to interpret this result as normal/abnormal . MPV (test code = 8.4 fL 9.8-13 L 79901-8) NRBC/100 WBC (test See_Comment [Automat ed code = 1398279915) message] The system which generated this result transmitted reference range : 0.0 - 10.0 /100 WBCs. The refer ence range was not u sed to interpret th is result as normal/abnormal . NRBC x10^3 (test code See_Comment [Auto mated = 3012214602) message] The s ystem which generated this result transmitted reference range : 10*3/?L. The reference range was not used to interpret this result as normal/abnormal . GRAN MAT (NEUT) % 63.0 % (test code = 770-8) IMM GRAN % (test code 0.50 % = 9160583228) LYMPH % (test code = 25.2 % 736-9) MONO % (test code = 9.8 % 5905-5) EOS % (test code = 0.3 % 713-8) BASO % (test code = 1.2 % 706-2) GRAN MAT x10^3(ANC) 3.73 10*3/uL 1.99-6.95 (test code = 4713682063) IMM GRAN x10^3 (test 0.03 10*3/uL 0-0.06 code = 2328148662) LYMPH x10^3 (test code 1.49 10*3/uL 1.09-3.23 = 731-0) MONO x10^3 (test code 0.58 10*3/uL 0.36-1.02 = 742-7) EOS x10^3 (test code = 0.06-0.53 L 711-2) BASO x10^3 (test code 0.07 10*3/uL 0.01-0.09 = 704-7) Lab Interpretation Abnormal (test code = 37858-2) [facility] CenterUA, Urinalysis Rflx Cult/[id number] 13:53:00 Test Item Value Reference Range Interpretation Comments Color,Urine (test code = UCOL) Yellow Yellow Clarity,Urine (test code = Cloudy Clear A UCLAR) Ph, Urine (test code = UPH) 7.5 5.0-9.0 N Specific Boley,Urine (test 1.025 1.005-1.030 N code = USG) [...] mg/dL Negative code = ULEU) UF REFLEXDrug Screen,[id number] 13:53:00 Test Item Value Reference Range Interpretation [...] code = UPROP) Complete Blood Count Auto [id number] 12:58:00 Test Item Value Reference Range Interpretation [...] = NRBCP) 0 % Coronavirus PCR, COVID19 [id number] 12:58:00 Test Item Value Reference Range Interpretation Comments Coronavirus PCR, COVID19 Rapid (test code = SARSCOV2) Coronavirus PCR, COVID19 Reference Range: Rapid (test code = Negative LVBSBMT98.1) SARS-CoV-2 PCR Result: Negative by RT-PCR (test code = SARS-CoV-2 PCR Result:) COVID-19 Status: AsymptomaticComprehensive Metabolic [id number] 12:58:00 Test Item Value Reference Range Interpretation [...] 144 U/L 46-116 H = ALP) Ethanol [id number] 12:58:00 Test Item Value Reference Range Interpretation Comments Ethanol (test code < 3 mg/dL The pharm acological = ETOH) response to blo od alcohol levels mayvary from individual to i ndividual. The fatal surinder ntrationhas been reported t o be >400mg/dL. [id number] 01:47:56 Test Item Value Reference Range Interpretation Comments [place] (test code = 0.7 mmol/L 0.6-1.2 2566763318) JUAN ALBERTO (test code = JUAN ALBERTO) Toxic Range: ? Greater than 1.2 mmol/L Lab Interpretation (test Normal code = 93588-9) [facility] CenterTROPONIN [id number] 00:26:53 Test Item Value Reference Interpretation Comments Range TROPONIN I (test 0.002 ng/mL See_Comment [Automated code = 8607768658) message] The system which generated this result [...] biotin. 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 METABOLIC PANEL (66877) 2022-01-20 00:16:16 Test Item Value Reference Range Interpretation Comments NA (test code = 137 mmol/L 135-145 7043865259) K (test code = 4.5 mmol/L 3.5-5 1375928670) CL (test code = 103 mmol/L 98-108 1138301054) CO2 TOTAL (test code = 26 mmol/L 23-31 2148165349) AGAP (test code = 2-16 8590462444) BUN (test code = 10 mg/dL 7-23 5582127320) GLUCOSE (test code = 121 mg/dL 70-110 H 4442410108) CREATININE (test code = 0.65 mg/dL 0.6-1.25 0460042651) TOTAL BILI (test code = 0.8 mg/dL 0.1-1.1 0710578730) CALCIUM (test code = 11.4 mg/dL 8.6-10.6 H 3399545122) T PROTEIN (test code = 7.2 g/dL 6.3-8.2 3292948441) ALBUMIN (test code = 4.6 g/dL 3.5-5 8705721919) ALK PHOS (test code = 112 U/L 34-122 8509047745) ALTv (test code = 19 U/L 50 1742-6) AST(SGOT) (test code = 26 U/L 13-40 0519966774) eGFR (test code = mL/min/1.73m2 5185857437) JUAN ALBERTO (test code = JUAN ALBERTO) [...] tests). Lab Interpretation Abnormal (test code = 49638-2) [facility] WITH [id number] 23:43:54 Test Item Value Reference Range Interpretation Comments WBC (test code = See_Comment [Automated 1188-2) message] The sy stem which generated this result transmitted reference range : 4.20 - 10.70 10*3/?L. The reference range was not used to interpret this result as normal/abnormal . RBC (test code = See_Comment [Automated 858-8) message] The sy stem which generated this [...] RDW-SD (test code = 44.0 fL 38.5-51.6 42924-7) RDW-CV (test code = 12.6 % 12.1-15.4 788-0) PLT (test code = See_Comment [Automated 777-3) message] The sy stem which generated this result transmitted reference range : 150 - 328 10*3/ ?L. The reference r elba was not used to interpret this result as normal/abnormal . MPV (test code = 9.1 fL 9.8-13 L 94652-5) NRBC/100 WBC (test See_Comment [Automat ed code = 3966269777) message] The system which generated this result transmitted reference range : 0.0 - 10.0 /100 WBCs. The refer ence range was not u sed to interpret th is result as normal/abnormal . NRBC x10^3 (test code See_Comment [Auto mated = 4895550371) message] The s ystem which generated this result transmitted reference range : 10*3/?L. The reference range was not used to interpret this result as normal/abnormal . GRAN MAT (NEUT) % 69.8 % (test code = 770-8) IMM GRAN % (test code 0.40 % = 8305158928) LYMPH % (test code = 18.0 % 736-9) MONO % (test code = 10.9 % 5905-5) EOS % (test code = 0.1 % 713-8) BASO % (test code = 0.8 % 706-2) GRAN MAT x10^3(ANC) 5.58 10*3/uL 1.99-6.95 (test code = 3895036271) IMM GRAN x10^3 (test 0.03 10*3/uL 0-0.06 code = 4554070310) LYMPH x10^3 (test code 1.44 10*3/uL 1.09-3.23 = 731-0) MONO x10^3 (test code 0.87 10*3/uL 0.36-1.02 = 742-7) EOS x10^3 (test code = 0.06-0.53 L 711-2) BASO x10^3 (test code 0.06 10*3/uL 0.01-0.09 = 704-7) Lab Interpretation Abnormal (test code = 43448-6) [facility] GLUCOSE (AUTOMATED)2022-01-19 22:27:41 Test Item Value Reference Range Interpretation Comments POCT GLU (test code = 6236694285) 123 mg/dL 70-110 H Lab Interpretation (test code = Abnormal 19052-9) [facility] GLUCOSE (AUTOMATED)2021-12-30 22:08:16 Test Item Value Reference Range Interpretation Comments POCT GLU (test code = 4582479531) 167 mg/dL 70-110 H Lab Interpretation (test code = Abnormal 59092-6) [facility] GLUCOSE (AUTOMATED)2021-12-30 16:50:40 Test Item Value Reference Range Interpretation Comments POCT GLU (test code = 5778351737) 154 mg/dL 70-110 H Lab Interpretation (test code = Abnormal 14901-5) [facility] GLUCOSE (AUTOMATED)2021-12-30 12:38:43 Test Item Value Reference Range Interpretation Comments POCT GLU (test code = 5304722020) 164 mg/dL 70-110 H Lab Interpretation (test code = Abnormal 30043-9) [facility] GLUCOSE (AUTOMATED)2021-12-30 02:14:58 Test Item Value Reference Range Interpretation Comments POCT GLU (test code = 1335937853) 220 mg/dL 70-110 H Lab Interpretation (test code = Abnormal 76692-0) [facility] GLUCOSE (AUTOMATED)2021-12-29 21:50:02 Test Item Value Reference Range Interpretation Comments POCT GLU (test code = 0607477010) 191 mg/dL 70-110 H Lab Interpretation (test code = Abnormal 03469-0) [facility] CenterPO[facility])2021-12-29 20:15:01 Test Item Value Reference Range Interpretation Comments POCT GLU (test code = 6126748763) 163 mg/dL 70-110 H Lab Interpretation (test code = Abnormal 30609-1) [facility] CenterTransthoracic echo (TTE)2021-12-29 19:12:22 Test Item Value Reference Range Interpretation Comments Height (test code = in 2544821538) Weight (test code = lbs 2330567715) Systolic BP (test code = mmHg 1035662240) Diastolic BP (test code mmHg = 2788048960) Heart Rate (test code = bpm 9346004835) BSA (test code = 1.62 m2 0252673824) Ao root annulus (test 2.45 cm code = 6537180821) Ao root diam (test code 2.45 cm = 5183703378) Aortic root (test code = 2.45 cm 2742885682) ACS (test code = 1.66 cm 4832874546) LA size (test code = 3.2 cm 9625224876) LVOT diameter (test code 1.95 cm = 7462815683) LVIDD (test code = 3.60 cm 1619120795) IVS (test code = 0.94 cm 1313908246) Interventricular Septum 0.94 cm Diastolic Thickness by 2D (test code = 7986671) LVPWD (test code = 0.80 cm 2818607625) PW (test code = 0.80 cm 0.6-1.2 2682516863) EF(Teich) (test code = 52.80 % 8437452913) LVIDS (test code = 2.60 cm 6345437551) FS (test code = 27 % 2494480786) EF - 2D (test code = 52.80 % 09294338) LAV(MOD-sp4) (test code 16.80 mL = 5376695974) MV Peak E Jovany (test code 46.1 cm/s = 7100679692) E wave decelartion time 0.31 s (test code = 4680246289) MV Peak A Jovany (test code 58.1 cm/s = 6995566135) E/A ratio (test code = ratio 9517482390) MV E/e' septal (test 5.7 cm/s code = 1728429228) Tapse (test code = 1.60 cm 4820831226) LVOT stroke volume (test 52.10 cm3 code = 9184835070) LVOT peak jovany (test code 110.6 cm/s = 2891688716) LVOT mn grad (test code mmHg = 2629697611) AV LVOT peak gradient mmHg (test code = 1497173428) LVOT peak VTI (test code 17.4 cm = 6415561968) LV V1 mean (test code = 66.10 cm/s 1141707299) Aortic valve mean 73.0 cm/s velocity (test code = 9560255988) Ao peak jovany (test code = 124.6 cm/s 8785971488) Ao VTI (test code = 18.6 cm 2232525658) AV area by cont VTI 2.8 cm2 (test code = 1946598506) AV area peak jovany (test 2.7 cm2 code = 2605487821) Ao max PG (test code = 6.20 mm[Hg] 4100126093) AV peak gradient (test mmHg code = 0968012645) AV valve area (test code 2.80 cm2 = 1854176082) AV mean gradient (test mmHg code = 8953465152) Radiology Study observation (narrative) (test code = 19049-4) JUAN ALBERTO (test code = JUAN ALBERTO) [...] mL of Lumason ultrasound enhancing agent used. [facility]PO[facility] ([facility])2021-12-29 12:50:31 Test Item Value Reference Range Interpretation Comments POCT GLU (test code = 9935442188) 141 mg/dL 70-110 H Lab Interpretation (test code = Abnormal 09729-3) [facility] CenterTroponin [id number] 10:38:31 Test Item Value Reference Interpretation Comments Range TROPONIN I (test 0.003 ng/mL See_Comment [Automated code = 4390474381) message] The system which generated this result [...] biotin. Lab Interpretation Normal (test code = 60959-0) [facility] CenterLIPID PANEL (12181)(TOTAL CHOLESTEROL, TRIGLYCERIDES, HDL)2021-12-29 05:56:47 Test Item Value Reference Range Interpretation Comments CHOL (test code = 168 mg/dL 120-200 7230894448) HDL (test code = 102 mg/dL See_Comment [Automated message] 1461638094) The system [employer] generated this result transmit naomie reference range : >=40. The refer ence range was not u sed to interpret th is result as normal/abnormal . HDLC RATIO (test code = See_Comment [Au tomated message] 2235927608) The system [employer] generated this result transmit naomie reference range : <=5.0. The refe rence range was not u sed to interpret th is result as normal/abnormal . TRIG (test code = 55 mg/dL 30-170 0843634525) LDL CHOL (test code = 55 mg/dL See_Comment [Auto mated message] 16247-7) The system [employer] generated this result transmit naomie reference range : <=160. The refe rence range was not u sed to interpret th is result as normal/abnormal . VLDL (test code = 11 mg/dL 5-60 0564908732) Lab Interpretation (test Normal code = 17754-1) [facility] CenterThyroid Stimulating Hormone (TSH)2021-12-29 05:40:29 Test Item Value Reference Range Interpretation Comments TSH (test code = See_Comment Biotin has been 1535351465) reported to cau se a negative bias, interpret resul ts relative to pat jillian's use of biotin. [Automated mess age] The system [employer] generated this result transmitted ref erence range: 0.45 - 4 .70 mIU/L. The refe rence range was not u sed to interpret this result as normal/abnor mal. Lab Interpretation (test Normal code = 69764-4) [facility] CenterTroponin [id number] 05:34:29 Test Item Value Reference Interpretation Comments Range TROPONIN I (test 0.006 ng/mL See_Comment [Automated code = 1923082917) message] The system which generated this result [...] biotin. Lab Interpretation Normal (test code = 62420-8) [facility] CenterETHANOL2022-07-10 04:43:01 ALCOHOL<10mg/dL12/28/2021 11:43 PM [facility]ORYToxic Greater than or equal to 80 mg/dL. NOTE: Whole blood values are approximately 10% to 15% lower than serum and plasma.[facility] CenterGlycosylated Hemoglobin (A1C)2021-12-29 01:51:44 Test Item Value Reference Range Interpretation Comments HGB A1C (test code = 6.5 % 4-5.7 H 4548-4) JUAN ALBERTO (test code = JUAN ALBERTO) Reference RangesNormal: <5.7%Prediabetes: 5.7 - 6.4%Diabetes: > 6.5% Lab Interpretation (test Abnormal code = 55801-8) [facility] CenterTROPONIN [id number] 21:26:50 Test Item Value Reference Interpretation Comments Range TROPONIN I (test 0.002 ng/mL See_Comment [Automated code = 4286427885) message] The system which generated this result [...] biotin. Lab Interpretation Normal (test code = 15832-5) [facility] CenterN-TERMINAL HOL-[id number] 21:23:29 Test Item Value Reference Range Interpretation Comments NT-proBNP (test code 41 pg/mL See_Comment [Autom ated = 4829661801) message] The system which generated this result transmitted reference range : <=125. The reference range was not used to interpret this result as normal/abnormal . JUAN ALBERTO (test code = JUAN ALBERTO) Biotin has been reported to cause a negative bias, interpret results relative to patient's use of biotin. Lab Interpretation Normal (test code = 55588-6) [facility] CenterAMMONIA, [id number] 21:20:38 Test Item Value Reference Range Interpretation Comments AMMONIA (test code = 9-33 L Slight hemolysis 9572573529) Lab Interpretation (test Abnormal code = 66402-4) [facility]. METABOLIC PANEL (99869)2021-12-28 21:08:48 Test Item Value Reference Range Interpretation Comments NA (test code = 137 mmol/L 135-145 9511543227) K (test code = 4.5 mmol/L 3.5-5 2915210676) CL (test code = 97 mmol/L 98-108 L 6048690207) CO2 TOTAL (test code = 29 mmol/L 23-31 4226511718) AGAP (test code = 2-16 0393362574) BUN (test code = 10 mg/dL 7-23 1433363435) GLUCOSE (test code = 188 mg/dL 70-110 H 3159282983) CREATININE (test code = 0.58 mg/dL 0.6-1.25 L 4356702409) TOTAL BILI (test code = 0.8 mg/dL 0.1-1.5 4084422301) CALCIUM (test code = 10.5 mg/dL 8.6-10.6 5112347885) T PROTEIN (test code = 7.6 g/dL 6.3-8.2 5958243370) ALBUMIN (test code = 4.5 g/dL 3.5-5 3881393420) ALK PHOS (test code = 107 U/L 34-122 1077710288) ALTv (test code = 66 U/L 5-50 H 1742-6) AST(SGOT) (test code = 96 U/L 13-40 H 8058061220) eGFR (test code = mL/min/1.73m2 6615236966) JUAN ALBERTO (test code = JUAN ALBERTO) [...] tests). Lab Interpretation Abnormal (test code = 89606-2) [facility] CenterPROTHROMBIN TIME / [id number] 21:01:25 Test Item Value Reference Range Interpretation Comments PROTIME PATIENT (test See_Comment [Auto mated message] code = 5964-2) The system [employer] generated this result transmitted ref erence range: 12.0 - 1 4.7 Seconds. The re ference range was not u sed to interpret this result as normal/abnor mal. INR (test code = 6301-6) Nor mal INR <1.1; Warfarin Therap eutic range 2.0 to 3. 0 or 2.5 to 3.5, dep ending upon the indica tions. Lab Interpretation (test Normal code = 47808-7) [facility] CenterCB WITH [id number] 20:54:03 Test Item Value Reference Range Interpretation [...] RDW-SD (test code = 47.8 fL 38.5-51.6 42698-8) RDW-CV (test code = 13.3 % 12.1-15.4 788-0) PLT (test code = See_Comment [Automated 777-3) message] The sy stem which generated this result transmitted reference range : 150 - 328 10*3/ ?L. The reference r elba was not used to interpret this result as normal/abnormal . MPV (test code = 8.6 fL 9.8-13 L 05260-7) NRBC/100 WBC (test See_Comment [Automat ed code = 4485648969) message] The system which generated this result transmitted reference range : 0.0 - 10.0 /100 WBCs. The refer ence range was not u sed to interpret th is result as normal/abnormal . NRBC x10^3 (test code See_Comment [Auto mated = 5967512102) message] The s ystem which generated this result transmitted reference range : 10*3/?L. The reference range was not used to interpret this result as normal/abnormal . GRAN MAT (NEUT) % 64.1 % (test code = 770-8) IMM GRAN % (test code 0.40 % = 9242799081) LYMPH % (test code = 16.6 % 736-9) MONO % (test code = 17.2 % 5905-5) EOS % (test code = 0.2 % 713-8) BASO % (test code = 1.5 % 706-2) GRAN MAT x10^3(ANC) 3.47 10*3/uL 1.99-6.95 (test code = 4478664682) IMM GRAN x10^3 (test 0-0.06 code = 3057712160) LYMPH x10^3 (test code 0.90 10*3/uL 1.09-3.23 L = 731-0) MONO x10^3 (test code 0.93 10*3/uL 0.36-1.02 = 742-7) EOS x10^3 (test code = 0.06-0.53 L 711-2) BASO x10^3 (test code 0.08 10*3/uL 0.01-0.09 = 704-7) Lab Interpretation Abnormal (test code = 33101-6) [facility] CenterEthanol [id number] 21:08:00 Test Item Value Reference Range Interpretation Comments Ethanol (test code < 3 mg/dL The pharm acological = ETOH) response to blo od alcohol levels mayvary from individual to i ndividual. The fatal surinder ntrationhas been reported t o be >400mg/dL. Complete Blood Count Auto [id number] 17:33:00 Test Item Value Reference Range Interpretation [...] = NRBCP) 0 % UA, Urinalysis Rflx Cult/[id number] 17:33:00 Test Item Value Reference Range Interpretation Comments Color,Urine (test code = UCOL) Dark Yellow Yellow A Clarity,Urine (test code = Clear Clear UCLAR) Ph, Urine (test code = UPH) 6.5 5.0-9.0 N Specific [place],Urine (test 1.015 1.005-1.030 N code = USG) [...] mg/dL Negative A code = ULEU) Urine [id number] 17:33:00 Test Item Value Reference Range Interpretation Comments RBC,Urine (test code = URBCUF) None Seen /HPF 0-2 WBC,Urine (test code = UWBCUF) 0-5 /HPF 0-5 Epithelial Cell,Urine (test 0-5 /HPF 0-5 code = UECUF) Casts,Urine (test code = None Seen /LPF None Seen UCASTUF) Bacteria,Urine (test code = None Seen /hpf None Seen UBACTUF) Drug Screen,[id number] 17:33:00 Test Item Value Reference Range Interpretation [...] Urine (test code = UPROP) Comprehensive Metabolic [id number] 17:33:00 Test Item Value Reference Range Interpretation [...] 46-116 N = ALP) Sars-CoV-2/FLU A/B RSV [id number] 17:31:00 Test Item Value Reference Range Interpretation [...] (test code = SARS-CoV-2 PCR Result:) Drug Screen,[id number] 17:20:00 Test Item Value Reference Range Interpretation [...] code = UPROP) Complete Blood Count Auto [id number] 17:14:00 Test Item Value Reference Range Interpretation [...] code = NRBCP) 0 % Comprehensive Metabolic [id number] 17:14:00 Test Item Value Reference Range Interpretation [...] 207 U/L 46-116 H = ALP) Ethanol [id number] 17:14:00 Test Item Value Reference Range Interpretation Comments Ethanol (test code = ETOH) 192 mg/dL Complete Blood Count Auto [id number] 20:20:00 Test Item Value Reference Range Interpretation [...] code = NRBCP) 0 % Comprehensive Metabolic [id number] 20:20:00 Test Item Value Reference Range Interpretation [...] 189 U/L 46-116 H = ALP) Ethanol [id number] 20:20:00 Test Item Value Reference Range Interpretation Comments Ethanol (test code = ETOH) 10 mg/dL Sars-CoV-2/FLU A/B RSV [id number] 20:20:00 Test Item Value Reference Range Interpretation [...] = Amplification SARS-CoV-2 PCR Result:) UA, Urinalysis [id number] 20:20:00 Test Item Value Reference Range Interpretation Comments Color,Urine (test code = Yellow Y UCOL) Clarity,Urine (test code = Clear Clear UCLAR) PH,Urine (test code = 7.0 5.5-8.5 UPH.XX) Specific Boley,Urine 1.020 1.005-1.030 N (test code = USG) [...] cells/uL Negative (test code = ULEU) Drug Screen,[id number] 20:20:00 Test Item Value Reference Range Interpretation [...] code = UTHCS) CT head/brain wo con [facility] [address] [place], [place] [address] Patient Name: Walt Velazquez Medical Record#: [id number] Address: Homeless City/State/Zip: [place] [address]: Vinnie Navarro MD Phone: Insurance: Self Pay /Age/Sex: 1970/50/M Admit/Reg Date: 09/17/[address]: Vinnie Navarro MD Location: [facility]/ PCP: Pcp-Md KERWIN tSiles Date of Service: 09/17/21 Order (s): CT head/brain wo con CPT Code:00429 Report Number: [id number] Reason for Exam: Altered mental status Location H 31 CT SCAN OF T HE HEAD WITHOUT CONTRAST CLINICAL HISTORY: Altered mental status TECHNIQUE: Helical CT was performedfrom the skull base to the vertex without IV contrast and provided at 5 mm slice thickness. Coronal and sagittal reconstruction provided. Axial images provided in bone windows as well. One or more the f ollowing dose reduction techniques is utilized: Use of [...] orbits, paranasal sinus and mastoid air spaces appearwithin normal limits. Calvarium is intact. There is a rounded subcutaneous lesion at the midline frontal region, measuring 1 cm. Visual inspection. IMPRESSION: 1. No acute intracranial findings. 2. Incidental note of rounded subcutaneous lesion at the midline frontal region (forehead), measuring 1 cm.Visual inspection. Electronically signed by: Karen Jay MD 09/17/2021 6:42 PM CDT Dictated By: Karen Sanders MD 09/17/211824 Signed By: Karen Sanders MD 09/17/211824 TD/TT: 09/17/211824 Tech: [id number] cc: JOSEE; GENESIS* Vinnie Navarro MD; Pcp-Md KERWIN Stiles"
[2023-04-17 20:37] LABS: Absolute Lymphocytes (CBC) 0.6 K/uL (0.7-4.9); Hematocrit 36.4 % (39.6-49.0); Lymphocytes % 2.8 % (15.3-44.8); MCV 93.6 fL (80-100); MPV 6.6 fL (7.6-11.3); Platelets 246 thou/uL (152-406); RBC Red Blood Cell Count 3.89 M/uL (4.33-5.43)
[2023-04-17 20:43] LABS: Protime INR 1.18
--- NOTE | 2023-04-17 20:57 | RAD REPORT ---
EXAM DESCRIPTION: CT - Head C Spine Mpr Wo Con - 04/17/2023 8:36 pm CLINICAL HISTORY: Dizziness. Head and neck pain COMPARISON: 2021 TECHNIQUE: Computed axial tomography of the head and cervical spine was obtained. Sagittal and coronal reconstruction was performed. All CT scans are performed using dose optimization technique as appropriate and may include automated exposure control or mA/KV adjustment according to patient size. FINDINGS: An intracranial bleed is not seen. The ventricles are normal in caliber. No significant hypodensity within the brain. An extra-axial fluid collection is not noted. Fluid within the visualized sinuses and mastoids is not seen A cervical fracture is not visualized. No dislocation is noted. 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 This results in mild central spinal stenosis IMPRESSION: No acute intracranial abnormality is seen. A cervical fracture is not visualized. 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 This results in mild central spinal stenosis If the patient continues to have symptoms to suggest significant intracranial /spinal cord/ spinal ca nal pathology then MRI would be recommended
[2023-04-17 21:11] LABS: ALT/SGPT 26 U/L (16-61); AST/SGOT 52 U/L (15-37); Albumin 3.4 g/dL (3.4-5.0); Alkaline Phosphatase 113 U/L (45-117); BUN Blood Urea Nitrogen 11 mg/dL (7-18); Bicarbonate 21 mEq/L (21-32); Bilirubin Direct 0.3 mg/dL (0-0.2); Bilirubin Indirect, Calculated 0.7 mg/dL (0.2-0.8); Glomerular Filtration Rate 104 ml/min (=/>90); Glucose Level 174 mg/dL (74-106); Potassium 3.3 mEq/L (3.5-5.1); Sodium Level 132 mEq/L (136-145)
[2023-04-17] MEDS ORDERED: THIAMINE 200 MG/2 ML INJ ONE (21:16)
[2023-04-17] MEDS ORDERED: FOLIC ACID 5 MG/ML VIAL ONE (21:17)
[2023-04-17] MEDS ORDERED: NA CHLORIDE 0.9% 100 ML ONE ×2 (21:17→22:35)
[2023-04-17] MEDS ORDERED: MULTIVITAMINS 10 ML VIAL (INJ) IV ONE (21:17)
[2023-04-17] MEDS ORDERED: FOSPHENYTOIN PE 500 MG/10 ML VIAL ONE (21:18)
[2023-04-17] MEDS ORDERED: NA CHLORIDE 0.9% 2,000 ML ONE (21:18)
--- NOTE | 2023-04-17 21:19 | EDPHYS ---
Physician Documentation [facility] Name: Walt Velazquez Age: 52 yrs Sex: Male : 1970 Arrival Date: 04/17/2023 Time: 19:45 Bed 15 Private MD: ED Physician Deandre Mckeon HPI: 04/17 19:58 This 52 yrs old Male presents to ER via EMS with complaints of SEIZURE, ETOH, bridgette FALL. 19:58 Details of fall: The patient fell from an upright position, while standing. Onset: The bridgette symptoms/episode began/occurred just prior to arrival. Associated injuries: The patient sustained injury to the head, pain. The patient presents with dizziness. Onset: The symptoms/episode began/occurred today. Context: occurred while the patient was standing. Modifying factors: The symptoms are alleviated by lying down, the symptoms are aggravated by changing position. Associated signs and symptoms: Pertinent positives: confusion, ETOH. The patient presents after having a possible seizure episode. Seizure onset: just prior to arrival. Historical: - Allergies: 22:24 No Known Allergies; me1 - PMHx: 19:49 Alcoholism; Bipolar II; Hypertensive disorder; Parkinsons; Seizure; ph - Immunization history:: Adult Immunizations not up to date. - Social history:: Smoking status: Patient reports the use of cigarette tobacco products, smokes one pack cigarettes per day. - Family history:: not pertinent. ROS: 19:58 Constitutional: Negative for fever, chills, and weight loss, Eyes: Negative for injury, bridgette pain, redness, and discharge, ENT: Negative for injury, pain, and discharge, Neck: Negative for injury, pain, and swelling, Cardiovascular: Negative for chest pain, palpitations, and edema, Respiratory: Negative for shortness of breath, cough, wheezing, and pleuritic chest pain, Abdomen/GI: Negative for abdominal pain, nausea, vomiting, diarrhea, and constipation, Back: Negative for injury and pain, : Negative for injury, bleeding, discharge, and swelling, MS/Extremity: Negative for injury and deformity, Skin: Negative for injury, rash, and discoloration, Psych: Negative for depression, anxiety, suicide ideation, homicidal ideation, and hallucinations, Allergy/Immunology: Negative for hives, rash, and allergies, Endocrine: Negative for neck swelling, polydipsia, polyuria, polyphagia, and marked weight changes, Hematologic/Lymphatic: Negative for swollen nodes, abnormal bleeding, and unusual bruising, 19:58 Neuro: Positive for seizure activity, weakness, Exam: 19:58 Constitutional: This is a well developed, well nourished patient who is awake, alert, bridgette and in no acute distress. Head/Face: Normocephalic, atraumatic. Eyes: Pupils equal round and reactive to light, extra-ocular motions intact. Lids and lashes normal. Conjunctiva and sclera are non-icteric and not injected. Cornea within normal limits. Periorbital areas with no swelling, redness, or edema. ENT: Nares patent. No nasal discharge, no septal abnormalities noted. Tympanic membranes are normal and external auditory canals are clear. Oropharynx with no redness, swelling, or masses, exudates, or evidence of obstruction, uvula midline. Mucous membranes moist. Neck: Trachea midline, no thyromegaly or masses palpated, and no cervical lymphadenopathy. Supple, full range of motion without nuchal rigidity, or vertebral point tenderness. No Meningismus. Chest/axilla: Normal chest wall appearance and motion. Nontender with no deformity. No lesions are appreciated. Cardiovascular: Regular rate and rhythm with a normal S1 and S2. No gallops, murmurs, or rubs. Normal PMI, no JVD. No pulse deficits. Respiratory: Lungs have equal breath sounds bilaterally, clear to auscultation and percussion. No rales, rhonchi or wheezes noted. No increased work of breathing, no retractions or nasal flaring. Abdomen/GI: Soft, non-tender, with normal bowel sounds. No distension or tympany. No guarding or rebound. No evidence of tenderness throughout. Back: No spinal tenderness. No costovertebral tenderness. Full range of motion. Male : Normal genitalia with no discharge or lesions. Skin: Warm, dry with normal turgor. Normal color with no rashes, no lesions, and no evidence of cellulitis. Neuro: Awake and alert, GCS 15, oriented to person, place, time, and situation. Cranial nerves II-XII grossly intact. Motor strength 5/5 in all extremities. Sensory grossly intact. Cerebellar exam normal. Normal gait. Psych: Awake, alert, with orientation to person, place and time. Behavior, mood, and affect are within normal limits. 19:58 Musculoskeletal/extremity: Extremities: grossly normal except: ROM: full active range of motion, in all extremities, Circulation is intact in all extremities. Sensation intact. Compartment Syndrome exam of affected extremity: is normal. Weight bearing: able to fully bear weight, without difficulty, DVT Exam: No signs of deep vein thrombosis. no swelling, negative Homans' sign noted on exam, no appreciated bluish discoloration, no erythema, no increased warmth, 19:58 Skin: injury, avulsion(s), of the right foot and left foot, 21:29 ECG was reviewed by the Attending Physician. [facility] Vital Signs: 19:47 BP 126 / 89; Pulse 122; Resp 18; Temp 98; Pulse Ox 98% ; Weight 60 kg; Height 5 ft. 3 ph in. ; 20:30 BP 132 / 93; Pulse 118; Resp 22; Pulse Ox 99% on R/A; me1 21:00 BP 150 / 91; Pulse 120; Resp 19; Pulse Ox 100% on R/A; me1 21:45 BP 132 / 86; Pulse 110; Resp 21; Pulse Ox 100% on R/A; me1 22:00 BP 123 / 81; Pulse 110; Resp 20; Pulse Ox 99% on R/A; me1 22:30 BP 127 / 83; Pulse 111; Resp 19; Pulse Ox 98% ; me1 23:06 Weight 63.5 kg; me1 19:47 Body Mass Index 23.43 (63.50 kg, 160.02 cm) ph MDM: 19:52 Patient medically screened. [facility] 20:01 Differential diagnosis: closed head injury, contusion, fracture, laceration, multiple bridgette trauma, sprain, strain, CVA, generalized weakness, GI bleed, hypovolemia, idiopathic dizziness, near-syncope, syncope, TIA, vertigo, drug overdose. Data reviewed: vital signs, nurses notes, lab test result(s), EKG, radiologic studies, CT scan. Consideration of Admission/Observation Escalation of care including admission/observation considered. I considered the following discharge prescriptions or medication management in the emergency department Medications were administered in the Emergency Department. See MAR. Independent interpretation of the following test(s) in the Emergency Department EKG: See my EKG interpretation above. Test considered but Not performed: Ultrasound NO ABD USG. Historians other than the Patient: EMS: EMS WELL INFORMED. Care significantly affected by the following chronic conditions: Hypertension, BIPOLAR, SEIZURES, ALCOHOLISM. Counseling: I had a detailed discussion with the patient and/or guardian regarding the historical points, exam findings, and any diagnostic results supporting the discharge/admit diagnosis, lab results, radiology results, the need for outpatient follow up, for definitive care, a family practitioner, a neurologist. 04/17 19:55 Order name: Acetaminophen; Complete Time: 21:54 [facility] 04/17 19:55 Order name: Basic Metabolic Panel; Complete Time: 21:54 [facility] 04/17 19:55 Order name: CBC with Diff; Complete Time: 21:54 [facility] 04/17 19:55 Order name: ETOH Level; Complete Time: 21:14 [facility] 04/17 19:55 Order name: Hepatic Function; Complete Time: 21:54 [facility] 04/17 19:55 Order name: PT-INR; Complete Time: 21:04 [facility] 04/17 19:55 Order name: Ptt, Activated; Complete Time: 21:04 [facility] 04/17 19:55 Order name: Salicylate; Complete Time: 21:14 [facility] 04/17 19:55 Order name: Urinalysis w/ reflexes; Complete Time: 21:54 [facility] 04/17 19:55 Order name: Urine Drug Screen; Complete Time: 21:54 [facility] 04/17 19:55 Order name: Dilantin; Complete Time: 21:54 [facility] 04/17 20:57 Order name: CBC Smear Scan; Complete Time: 21:54 [facility] 04/17 21:17 Order name: CBC with Diff: 1030PM; Complete Time: 23:28 [facility] 04/17 21:25 Order name: Manual Differential; Complete Time: 21:54 [facility] 04/17 21:53 Order name: Blood Culture Adult (2) [facility] 04/17 21:53 Order name: Lactate w/ 2H reflex if indic.; Complete Time: 23:28 [facility] 04/17 22:47 Order name: CBC with Automated Diff [facility] 04/17 22:47 Order name: CBC with Automated Diff [facility] 04/17 22:47 Order name: Comprehensive Metabolic Panel [facility] 04/17 22:47 Order name: Comprehensive Metabolic Panel [facility] 04/18 02:51 Order name: Lactate Sepsis 2 HR Follow-up [facility] 04/17 19:55 Order name: CT Head C Spine; Complete Time: 21:04 [facility] 04/17 21:14 Order name: Chest Single View XRAY; Complete Time: 22:00 [facility] 04/17 19:55 Order name: EKG; Complete Time: 19:56 [facility] 04/17 19:55 Order name: EKG - Nurse/Tech; Complete Time: 21:26 [facility] 04/17 19:55 Order name: IV Saline Lock; Complete Time: 20:27 [facility] 04/17 19:55 Order name: Labs collected and sent; Complete Time: 20: [facility] 04/17 19:55 Order name: Suicide Screening ([place]); Complete Time: 00:33 [facility] 04/17 19:55 Order name: Misc. Order: CLEAN FEET; Complete Time: 23:44 [facility] 04/17 19:55 Order name: Seizure Precautions; Complete Time: :53 [facility] 04/17 21:15 Order name: PO challenge: JUICE; Complete Time: :53 [facility] EC:29 Rate is 110 beats/min. Rhythm is regular. QRS [place] is Normal. [place] interval is normal. No bridgette Q waves. T waves are Normal. No ST changes noted. Clinical impression: Sinus tachycardia and No evidence of ischemia. Interpreted by me. Reviewed by me. Administered Medications: 21:09 Drug: Fosphenytoin IVPB 1 grams IVPB once; (mix in 50 to 100mL NS) Route: IVPB; Site: [address]; 21:20 Follow up: Response: No adverse reaction; IV Status: Completed infusion me1 21:19 Drug: NS 0.9% IV 1000 ml IV at 1 bolus Per protocol; 1000 mL bolus Route: IV; Rate: 1 me1 bolus; [facility]; 23:44 Follow up: IV Status: Completed infusion me1 21:26 Drug: Thiamine IV 100 mg IV at per protocol once Route: IV; Rate: per protocol; [facility]; :27 Follow up: Response: No adverse reaction; IV Status: Completed infusion me1 21:26 Drug: Banana Bag - (Multivitamin IV 1 amp, NS 0.9% IV 1000 ml, Thiamine IV 100 mg, me1 foLIC Acid IVPB 1 mg) IV at 500 ml/hr once Route: IV; Rate: 500 ml/hr; Site: right antecubital; 23:44 Follow up: Response: No adverse reaction; IV Status: Completed infusion me1 21:39 Drug: Potassium PO Effervescent Tablet 25 mEq PO once; dissolve in 4 ounces of water or me1 juice Route: PO; 21:52 Follow up: Response: No adverse reaction me1 21:53 Drug: Silver SulfADIAZINE Topical Cream 1 % 1 application Topical once {Note: wounds to me1 bilateral feet.} Route: Topical; Site: wound; 22:06 Drug: morphine IVP or IV 4 mg IVP once over 4 mins Route: IVP; Infused Over: 4 mins; me1 Site: right antecubital; 22:18 Follow up: Response: No adverse reaction; Pain is decreased me1 22:06 Drug: Ondansetron IVP 4 mg IVP once; over 2 minutes Route: IVP; Site: right antecubital;me1 22:18 Follow up: Response: No adverse reaction me1 22:24 Drug: Tetanus Toxoid,Adsorbed IM 0.5 ml IM once; Provide Vaccine Information Statement me1 (VIS). {[employer]: [employer]; Exp: Sat Nov 12 2024; Lot #: [id number]; Series: 1 of 1; Patient Consent: Obtained; Date/Time: ; Source Name: Walt Velazquez; Source Relationship: Self; Address Information: [address] [place] [id number]; ; Education: Provided; VIS Presented Date: ; VIS Publication: Tetanus/Diphtheria (Td) Vaccine VIS 09/30/2016 (historic)} Route: IM; Site: right deltoid; 22:39 Follow up: Response: No adverse reaction me1 22:57 Drug: ceFAZolin IVPB 2 grams IVPB once over 30 mins; (mix in 100 mL NS) Route: IVPB; me1 Infused Over: 30 mins; Site: right forearm; 23:35 Follow up: IV Status: Completed infusion me1 23:35 Drug: vancoMYCIN IVPB 1 grams IVPB once over 2 hrs Route: IVPB; Infused Over: 2 hrs; me1 Site: right forearm; Disposition Summary: 04/17/23 22:00 Hospitalization Ordered Notes: Hospitalization Status: Inpatient Admission bridgette Provider: Migel Marie bridgette Condition: Fair(04/17/23 22:00) bridgette Problem: new(04/17/23 22:00) bridgette Symptoms: have improved(04/17/23 22:00) bridgette Bed/Room Type: Standard bridgette Location: Intensive Care Unit(04/18/23 05:17) cg Room Assignment: 6-(04/18/23 05:17) cg Diagnosis - Epileptic seizures related to external causes, not intractable, without status bridgette epilepticus(04/17/23 22:00) - Blister (nonthermal) of foot - BILATERAL(04/17/23 22:00) bridgette - Elevated white blood cell count(04/17/23 22:00) bridgette - Bandemia bridgette - Cellulitis and acute lymphangitis of other parts of limb - BILATERAL LOWER bridgette EXTREMITIES - Alcohol abuse with other induced disorder bridgette - Bipolar disorder, unspecified bridgette - Hypokalemia(04/17/23 22:00) bridgette - Abnormal level of other drugs, medicaments and biological substances in specimens bridgette from other organs, systems and tissues - SUBTHERAPUTIC DILANTIN LEVEL Forms: - Medication Reconciliation Form bridgette - SBAR form bridgette - Leadership Thank You Letter bridgette Signatures: Dispatcher [employer] EDMS Deandre Mckeon MD MD cha Nieto, Roman, MD MD rn Hall, Patricia, RN RN Evita Alberts RN RN Dora Bowens RN RN me1 Corrections: (The following items were deleted from the chart) 21:52 21:18 Home bridgette bridgette 21:52 21:18 new bridgette bridgette 21:52 21:18 have improved bridgette bridgette 21:52 21:18 Fair bridgette bridgette 21:52 21:18 Epileptic seizures related to external causes, not intractable, without status bridgette epilepticus bridgette 21:52 21:18 Alcohol abuse with intoxication bridgette bridgette 21:52 21:18 Weakness bridgetet bridgette 21:52 21:18 Blister (nonthermal) of foot - BILATERAL bridgette bridgette 21:52 21:18 Elevated white blood cell count bridgette bridgette 21:52 21:18 Hypokalemia bridgette [facility] 22:57 22:00 Telemetry/MedSurg (Inpatient) bridgette :57 22:00 bridgette cg 04/18 05:17 04/17 22:57 [facility] ER HOLD cg cg 04/18 05:17 04/17 22:57 ERHOLD- cg
--- NOTE | 2023-04-17 21:19 | ER ---
Nurse's Notes [facility] Name: Walt Velazquez Age: 52 yrs Sex: Male : 1970 Arrival Date: 04/17/2023 Time: 19:45 Bed 15 Private MD: Diagnosis: Epileptic seizures related to external causes, not intractable, without status epilepticus;Blister (nonthermal) of foot-BILATERAL;Elevated white blood cell count;Bandemia;Cellulitis and acute lymphangitis of other parts of limb-BILATERAL LOWER EXTREMITIES;Alcohol abuse with other induced disorder;Bipolar disorder, unspecified;Hypokalemia;Abnormal level of other drugs, medicaments and biological substances in specimens from other organs, systems and tissues-SUBTHERAPUTIC DILANTIN LEVEL Presentation: 04/17 19:47 Chief complaint: Patient states: complaining of pain and swelling of griffin feet. denies ph headache or CP. aaox4 upon arrival. EMS states: possible seizure, pt is homeless. Coronavirus screen: At this time, the client does not indicate any symptoms associated with coronavirus-19. Ebola Screen: No symptoms or risks identified at this time. Initial Sepsis Screen: Does the patient meet any 2 criteria? No. Patient's initial sepsis screen is negative. Does the patient have a suspected source of infection? No. Patient's initial sepsis screen is negative. Risk Assessment: Do you want to hurt yourself or someone else? Patient reports no desire to harm self or others. Onset of symptoms was April 17, 2023. 19:47 Method Of Arrival: EMS: [facility] 19:47 Acuity: LATASHA 2 ph Triage Assessment: 19:49 General: Appears unkempt, Behavior is calm, cooperative. Pain: Complains of pain in ph right foot and left foot. Neuro: Level of Consciousness is awake, alert, confused, Oriented to person, place, time, situation. Cardiovascular: Capillary refill Patient's skin is warm and dry. Respiratory: Airway is patent Respiratory effort is even, unlabored. GI: No signs and/or symptoms were reported involving the gastrointestinal system. : No signs and/or symptoms were reported regarding the genitourinary system. Derm: Wound noted right foot and left foot. Historical: - Allergies: 22:24 No Known Allergies; me1 - PMHx: 19:49 Alcoholism; Bipolar II; Hypertensive disorder; Parkinsons; Seizure; ph Historical Immunization: - Administered Vaccines 23:35 vancoMYCIN IVPB 1 grams me1 22:57 ceFAZolin IVPB 2 grams me1 22:24 Tetanus Toxoid,Adsorbed IM 0.5 ml me1 Mirror Silverer: LGL/[employer]; Exp: Sat Nov 12 2024; Lot #: [id number]; Series: 1 of 1; Patient Consent: Obtained; Date/Time: ; Source Name: Walt Velazquez; Source Relationship: Self; Address Information: [place] [address]; ; Education: Provided; VIS Presented Date: ; VIS Publication: Tetanus/Diphtheria (Td) Vaccine VIS 09/30/2016 (historic) 22:06 morphine IVP or IV 4 mg me1 22:06 Ondansetron IVP 4 mg me1 21:53 Silver SulfADIAZINE Topical Cream 1 % 1 application me1 21:39 Potassium PO Effervescent Tablet 25 mEq me1 21:26 Thiamine IV 100 mg me1 21:26 Banana Bag - (NS 0.9% IV 1000 ml, foLIC Acid IVPB 1 mg, Thiamine IV 100 mg, me1 Multivitamin IV 1 amp) 21:19 NS 0.9% IV 1000 ml me1 21:09 Fosphenytoin IVPB 1 grams me1 - Immunization history:: Adult Immunizations not up to date. - Social history:: Smoking status: Patient reports the use of cigarette tobacco products, smokes one pack cigarettes per day. - Family history:: not pertinent. Screenin:15 [facility] [place] ED Fall Risk Assessment (Adult) History of falling in the last 3 months, me1 including since admission Yes- fall prone (multiple falls) (3 pts) Confusion or Disorientation No (0 pts) Intoxicated or Sedated Yes (3 pts) Impaired Gait Yes (1 pt) Mobility Assist Device Used No (0 pt) Altered Elimination Yes (1 pt) Score/Fall Risk Level 3 or more points = High Risk Maintained a safe environment, Provided non-skid footwear, Hourly rounding (assess needs \T\ fall precautionary measures) done, Used ambulatory aids as needed (educated on \T\ assisted with). Abuse screen: Denies threats or abuse. Nutritional screening: No deficits noted. Tuberculosis screening: No symptoms or risk factors identified. Assessment: 20:15 General: Appears comfortable, slender, unkempt, Behavior is calm, cooperative, me1 appropriate for age, Reports per EMS patient may have had a seizure. Patient c/o pain and edema to bilateral feet. Denies SCALES and chest pain. Feet are muddy with wounds noted bilaterally. Pain: Complains of pain in right foot and left foot Pain does not radiate. Pain currently is 7 out of 10 on a pain scale. Quality of pain is described as Pain began Is continuous, Alleviated by rest, Aggravated by weight bearing. Neuro: Level of Consciousness is awake, alert, obeys commands, Oriented to person, place, time, situation, Appropriate for age Reports falling in a ditch. States he thinks he had a seizure. . Cardiovascular: Capillary refill < 3 seconds Patient's skin is warm and dry. Respiratory: Airway is patent Respiratory effort is even, unlabored, Respiratory pattern is regular, symmetrical. Derm: Wound noted left foot and right foot Wound is many full thickness wounds to bilateral feet with redness and warmth to BLE. Vital Signs: 19:47 BP 126 / 89; Pulse 122; Resp 18; Temp 98; Pulse Ox 98% ; Weight 60 kg; Height 5 ft. 3 ph in. ; 20:30 BP 132 / 93; Pulse 118; Resp 22; Pulse Ox 99% on R/A; me1 21:00 BP 150 / 91; Pulse 120; Resp 19; Pulse Ox 100% on R/A; me1 21:45 BP 132 / 86; Pulse 110; Resp 21; Pulse Ox 100% on R/A; me1 22:00 BP 123 / 81; Pulse 110; Resp 20; Pulse Ox 99% on R/A; me1 22:30 BP 127 / 83; Pulse 111; Resp 19; Pulse Ox 98% ; me1 23:06 Weight 63.5 kg; me1 19:47 Body Mass Index 23.43 (63.50 kg, 160.02 cm) ph ED Course: 19:47 Patient arrived in ED. ph 19:49 Triage completed. ph 19:49 Arm band placed on right wrist. ph 19:52 Deandre Mckeon MD is Attending Physician. bridgette 20:15 Patient has correct armband on for positive identification. Bed in low position. Call me1 light in reach. Side rails up X2. Provided Education on: POC. Verbalized understanding. . 20:15 No provider procedures requiring assistance completed. Flushed right antecubital. me1 20:27 Dora Bowens, RN is Primary Nurse. me1 20:28 Inserted saline lock: 22 gauge in right antecubital area, using aseptic technique. me1 20:28 Acetaminophen Sent. me1 20:28 Basic Metabolic Panel Sent. me1 20:28 CBC with Diff Sent. me1 20:28 ETOH Level Sent. me1 20:28 Hepatic Function Sent. me1 20:28 PT-INR Sent. me1 20:28 Ptt, Activated Sent. me1 20:28 Salicylate Sent. me1 20:38 CT Head C Spine In Process Unspecified. EDMS 20:56 Dora Bowens, RN is Primary Nurse. me1 21:15 Urinalysis w/ reflexes Sent. me1 21:15 Urine Drug Screen Sent. me1 21:18 Manav Paz MD is Referral Physician. bridgette 21:31 Chest Single View XRAY In Process Unspecified. EDMS 21:54 Migel Marie MD is Hospitalizing Provider. bridgette 22:58 Inserted saline lock: 22 gauge in right forearm, using aseptic technique. me1 Administered Medications: 21:09 Drug: Fosphenytoin IVPB 1 grams IVPB once; (mix in 50 to 100mL NS) Route: IVPB; Site: [facility] right antecubital; 21:20 Follow up: Response: No adverse reaction; IV Status: Completed infusion me1 21:19 Drug: NS 0.9% IV 1000 ml IV at 1 bolus Per protocol; 1000 mL bolus Route: IV; Rate: 1 me1 bolus; Site: right antecubital; 23:44 Follow up: IV Status: Completed infusion me1 21:26 Drug: Thiamine IV 100 mg IV at per protocol once Route: IV; Rate: per protocol; Site: [facility] right antecubital; 21:27 Follow up: Response: No adverse reaction; IV Status: Completed infusion me1 21:26 Drug: Banana Bag - (Multivitamin IV 1 amp, NS 0.9% IV 1000 ml, Thiamine IV 100 mg, me1 foLIC Acid IVPB 1 mg) IV at 500 ml/hr once Route: IV; Rate: 500 ml/hr; Site: right antecubital; 23:44 Follow up: Response: No adverse reaction; IV Status: Completed infusion me1 21:39 Drug: Potassium PO Effervescent Tablet 25 mEq PO once; dissolve in 4 ounces of water or me1 juice Route: PO; 21:52 Follow up: Response: No adverse reaction me1 21:53 Drug: Silver SulfADIAZINE Topical Cream 1 % 1 application Topical once {Note: wounds to me1 bilateral feet.} Route: Topical; Site: wound; 22:06 Drug: morphine IVP or IV 4 mg IVP once over 4 mins Route: IVP; Infused Over: 4 mins; me1 Site: right antecubital; 22:18 Follow up: Response: No adverse reaction; Pain is decreased me1 22:06 Drug: Ondansetron IVP 4 mg IVP once; over 2 minutes Route: IVP; Site: right antecubital;me1 22:18 Follow up: Response: No adverse reaction me1 22:24 Drug: Tetanus Toxoid,Adsorbed IM 0.5 ml IM once; Provide Vaccine Information Statement me1 (VIS). {Mirror Silverer: LGL[employer]; Exp: Sat Nov 12 2024; Lot #: [id number]; Series: 1 of 1; Patient Consent: Obtained; Date/Time: ; Source Name: Walt Velazquez; Source Relationship: Self; Address Information: [address] [place], [place] [id number]; ; Education: Provided; VIS Presented Date: ; VIS Publication: Tetanus/Diphtheria (Td) Vaccine VIS 09/30/2016 (historic)} Route: IM; Site: right deltoid; 22:39 Follow up: Response: No adverse reaction me1 22:57 Drug: ceFAZolin IVPB 2 grams IVPB once over 30 mins; (mix in 100 mL NS) Route: IVPB; me1 Infused Over: 30 mins; Site: right forearm; 23:35 Follow up: IV Status: Completed infusion me1 23:35 Drug: vancoMYCIN IVPB 1 grams IVPB once over 2 hrs Route: IVPB; Infused Over: 2 hrs; me1 Site: right forearm; Medication: 22:23 Vaccine Information Statement (VIS) provided today. Questions and/or concerns me1 addressed. VIS edition date: January 25, 2021. Outcome: 21:18 Discharge ordered by . [facility] 22:00 Decision to Hospitalize by Provider. [facility] 04/18 05:37 Patient left the ED. lg3 Signatures: Dispatcher [employer] EDDeandre Castrejon MD MD cha Hall, Patricia, RN RN Sara Xiong RN RN lg3 Dora Bowens RN RN me1
[2023-04-17 21:24] LABS: Blood Morphology Comment NOT SEEN (NOT SEEN); Platelet Estimate DECR; White Blood Cell Scan OK (OK)
[2023-04-17 21:32] LABS: Methadone ND (NEGATIVE)
[2023-04-17 21:34] LABS: Specific Gravity 1.013 (1.005-1.030); Urine Bacteria None Seen /HPF (<20); Urine Bilirubin NEGATIVE (Negative); Urine Blood Trace (Negative); Urine Clarity Clear (Clear); Urine Color Light-Yellow (Yellow); Urine Glucose 3+ (Negative); Urine Mucus Slight /HPF (None Seen); Urine Protein TRACE (Negative); Urine RBC <5 /HPF (None Seen); Urine Urobilinogen Normal (Normal); Urine pH 5.5 (5.0-7.0)
[2023-04-17 21:45] LABS: Barbiturates NEGATIVE (NEGATIVE); Benzodiazepines NEGATIVE (NEGATIVE); Cocaine NEGATIVE (NEGATIVE); METHAMPHETAM NEGATIVE (NEGATIVE); Opiates NEGATIVE (NEGATIVE); Phencyclidine NEGATIVE (NEGATIVE); THC Cannibis NEGATIVE (NEGATIVE)
[2023-04-17 21:49] LABS: Phenytoin (Dilantin) Level < 0.4 mcg/mL (10.0-20.0)
[2023-04-17] MEDS ORDERED: POTASSIUM 25 MEQ EFFERV TAB ONE (21:51)
[2023-04-17] MEDS ORDERED: SILVER SULFADIAZINE 1% 25 GM TOP ONE (21:51)
--- NOTE | 2023-04-17 21:54 | RAD REPORT ---
EXAM DESCRIPTION: [facility] Single View04/17/2023 9:29 pm CLINICAL HISTORY: Cough COMPARISON: July 2022 FINDINGS: The lungs appear clear of acute infiltrate. The heart is normal size IMPRESSION: No acute abnormalities displayed
[2023-04-17] MEDS ORDERED: VANCOMYCIN 1 GM/VIAL ONE (22:35)
[2023-04-17] MEDS ORDERED: TDAP (DIPHTH,PERTUSS(ACELL),TET VAC) 0.5 ML VIAL IMVAC ONE (22:35)
[2023-04-17] MEDS ORDERED: CEFAZOLIN SODIUM 1 GM/VIAL ONE (22:35)
[2023-04-17] MEDS ORDERED: NA CHLORIDE 0.9% 250 ML ONE (22:35)
[2023-04-17] MEDS ORDERED: ACETAMINOPHEN 325 MG TABLET PO PRN (22:40)
[2023-04-17] MEDS ORDERED: ONDANSETRON 4 MG/2 ML VIAL IV PRN (22:40)
--- NOTE | 2023-04-17 22:48 | P.HP ---
Certification for Inpatient Patient admitted to: Inpatient With expected LOS: >2 Midnights Practitioner: I am a practitioner with admitting privileges, knowledge of patient current condition, hospital course, and medical plan of care. Services: Services provided to patient in accordance with Admission requirements found in Title 42 Section 412.3 of the Code of Federal Regulations Patient History Date of Service: 04/18/23 Reason for admission: Suspect seizures, alcohol withdrawal, tremors History of Present Illness: 49-year-old male patient was medicated significant for alcohol abuse, history of suspected seizure disorder and Parkinson disease who was brought to the emergency room because of multiple issues. He has ulcers in the lower extremity which appear infected and multiple blisters. He also has issues with shaking and significant suspicion for underlying septic condition. Labs was concern with elevated lactic acid of greater than 3, tachycardia and elevated alcohol level of 24. He was started on IV fluid bolus, antibiotic therapy and was admitted for inpatient care. Patient reported that he had accidentally busted a blister and also messed up one of his toes. He has a history of daily use of alcohol and tobacco products. Allergies TRAZADONE Allergy (Uncoded 07/12/16 07:23) Unknown Trazodone Allergy (Uncoded 06/29/15 16:43) Unknown Home Medications: Metoprolol Tartrate [Lopressor*] 25 mg PO BID #60 tab 07/05/16 Multivit,Ther Iron,Ca,FA & Min [Centrum Tablet*] 1 tab PO DAILY #90 tab 07/05/16 Pantoprazole [Protonix Tab*] 40 mg PO DAILYAC #30 tab 07/05/16 Phenytoin Sodium Extended [Dilantin] 100 mg PO TID #90 capsule 07/05/16 Thiamine HCl [Vitamin B-1*] 100 mg PO DAILY #30 tablet 07/05/16 chlordiazePOXIDE HCl [Librium*] 25 mg PO SEECOM #70 cap 07/05/16 risperiDONE [Risperdal 1 mg tab*] 2 mg PO DAILY #30 tab 07/05/16 - Past Medical/Surgical History Diabetic: No -: Bipolar disorder -: GERD -: Seizure disorder from previous head trauma -: Alcohol abuse -: Hypertension -: Hypertension -: GERD -: 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 He does not work - Social History Alcohol use: Yes CD- Drugs: Yes Caffeine use: Yes Review of Systems General: Malaise, Other (tremors) Eyes: Unremarkable ENT: Unremarkable Respiratory: Unremarkable Cardiovascular: Unremarkable Gastrointestinal: Unremarkable Genitourinary: Unremarkable Musculoskeletal: Foot Pain Integumentary: Lesions Neurological: Weakness, Incoordination Physical Examination - Physical Exam General: Alert HEENT: Atraumatic, Normocephalic Neck: Supple Respiratory: Normal air movement Cardiovascular: Other (tachycardia) Gastrointestinal: Soft and benign Musculoskeletal: Other (lesions on the heels and multiple blisters on feet.) Neurological: Normal speech - Studies Laboratory Data (last 24 hrs) 04/17/23 04/17/23 04/17/23 20:26 20:26 20:26 WBC 22.50 H Hgb 12.4 L Hct 36.4 L Plt Count 246 PT 13.0 H INR 1.18 APTT 32.4 Sodium 132 L Potassium 3.3 L BUN 11 Creatinine 0.84 Glucose 174 H Total Bilirubin 1.0 AST 52 H ALT 26 Alkaline Phosphatase 113 Assessment and Plan - Plan Sepsis: Present on admission. Patient had elevated lactic acid of greater than 3 and has been started on empiric antibiotic therapy with vancomycin and cefepime for foot infection/cellulitis. We will monitor cultures for adjustment to therapy. Continue IV fluid for resuscitation and sepsis protocol. Cellulitis: Infection not identified bilaterally. Empiric antibiotic therapy with vancomycin and cefepime started for management. We will adjust antibiotic therapy based on cultures and clinical state/response. Alcohol withdrawal: Patient has a significant alcohol use hx. We will start alcohol withdrawal protocol. Continue antiseizure/alcohol withdrawal medications. We will follow clinical symptomatology. We will supplement thiamine and multivitamin as per protocol. Seizures: Patient does have a history of seizures and is on antiseizure medication. He had a dose of phenytoin given in the emergency room. we will continue on Seizure precaution. We will have neurology evaluate patient for adjustment to therapy as needed. We will obtain EEG. Prophylaxis: Lovenox for DVT prophylax CODE STATUS, full code Disposition: We will treat his multiple medical issues and discharge him when he is deemed clinically stable - Advance Directives Does patient have a Living Will: No Does patient have a Durable POA for Healthcare: No
[2023-04-17 22:49] LABS: Hematocrit 37.7 % (39.6-49.0); MCV 94.3 fL (80-100); MPV 6.9 fL (7.6-11.3); Platelets 230 thou/uL (152-406)
[2023-04-17] MEDS: NA CHLORIDE 0.9% 1,000 ML IV SCH (23:00)
[2023-04-18] MEDS ORDERED: NA CHLORIDE 0.9% 1,000 ML ONE (01:20)
[2023-04-18 02:46] LABS: Absolute Lymphocytes (CBC) 1.1 K/uL (0.7-4.9); Hematocrit 35.6 % (39.6-49.0); Lymphocytes % 6.1 % (15.3-44.8); MCV 93.9 fL (80-100); MPV 6.7 fL (7.6-11.3); Platelets 204 thou/uL (152-406); RBC Red Blood Cell Count 3.79 M/uL (4.33-5.43)
[2023-04-18 02:58] LABS: Albumin 2.9 g/dL (3.4-5.0); Bilirubin Total 0.7 mg/dL (0.2-1.0); Potassium 3.5 mEq/L (3.5-5.1)
[2023-04-18] MEDS ORDERED: NA CHLORIDE 0.9% 1,000 ML IV ONE (03:10)
[2023-04-18] MEDS ORDERED: LORazepam 2 MG/ML VIAL IV PRN (03:52)
[2023-04-18] MEDS ORDERED: FLUMAZENIL 0.1 MG/ML (5 mL VIAL) IV PRN (03:52)
[2023-04-18] MEDS: LORazepam 2 MG/ML VIAL IV SCH ×5 (04:00→20:01)
[2023-04-18] MEDS ORDERED: LORazepam 2 MG/ML VIAL ONE (04:20)
[2023-04-18] MEDS: INSULIN REGULAR (HUMAN) 100 UNIT/ML SQ SCH ×4 (07:30→20:25)
[2023-04-18] MEDS ORDERED: CEFEPIME 1 GM in NA CHLORIDE 0.9% 100 ML IV SCH (09:00)
[2023-04-18] MEDS ORDERED: VANCOMYCIN 1.25 GM in NA CHLORIDE 0.9% 250 ML IVPB SCH (09:00)
[2023-04-18] MEDS: FOLIC ACID 1 MG TABLET PO SCH (09:00)
[2023-04-18] MEDS: NA CHLORIDE 0.9% 1,000 ML IV SCH ×3 (09:00→20:26)
[2023-04-18] MEDS: ENOXAPARIN 40 MG/0.4 ML SQ SCH (10:21)
[2023-04-18] MEDS: CEFEPIME 2 GM in NA CHLORIDE 0.9% 100 ML IV SCH ×2 (10:22→20:02)
[2023-04-18] MEDS: THIAMINE 200 MG/2 ML INJ IVP SCH (10:23)
[2023-04-18] MEDS: VANCOMYCIN 1 GM in NA CHLORIDE 0.9% 250 ML IVPB SCH ×2 (10:30→20:54)
--- NOTE | 2023-04-18 10:54 | P.PN ---
Subjective Date of Service: 04/18/23 Chief Complaint: Suspect seizures, alcohol withdrawal, tremors Subjective: No C/O voiced Confused, drowsy <Vignesh Gamble - Last Filed: 04/18/23 10:50> Date of Service: 04/18/23 <Migel Marie - Last Filed: 04/18/23 20:39> Review of Systems is unable to be obtained <Vignesh Gamble - Last Filed: 04/18/23 10:50> Physical Examination - Vital Signs Temperature: 98.1 F Blood Pressure: 91/46 Pulse: 97 Respirations: 22 Pulse Ox (%): 93 - Physical Exam General: Alert, In no apparent distress, Oriented x2, Confused, Other (Drowsy) HEENT: Atraumatic, PERRLA, EOMI Neck: Supple, JVD not distended Respiratory: Clear to auscultation bilaterally, Normal air movement Cardiovascular: Regular rate/rhythm, Normal S1 S2 Capillary refill: <2 Seconds Gastrointestinal: Normal bowel sounds, No tenderness Musculoskeletal: No tenderness Integumentary: Other (Wounds to bilateral lower extremities) Neurological: Normal speech, Normal tone, Normal affect - Studies Laboratory Data (last 24 hrs) 04/17/23 04/17/23 04/17/23 22:27 20:26 20:26 WBC 24.70 H 22.50 H Hgb 12.6 L 12.4 L Hct 37.7 L 36.4 L Plt Count 230 246 PT 13.0 H INR 1.18 APTT 32.4 Sodium Potassium BUN Creatinine Glucose Total Bilirubin AST ALT Alkaline Phosphatase 04/17/23 20:26 WBC Hgb Hct Plt Count PT INR APTT Sodium 132 L Potassium 3.3 L BUN 11 Creatinine 0.84 Glucose 174 H Total Bilirubin 1.0 AST 52 H ALT 26 Alkaline Phosphatase 113 Medications List Reviewed: Yes <Vignesh Gamble - Last Filed: 04/18/23 10:50> - Studies Laboratory Data (last 24 hrs) 04/17/23 04/17/23 04/17/23 22:27 20:26 20:26 WBC 24.70 H 22.50 H Hgb 12.6 L 12.4 L Hct 37.7 L 36.4 L Plt Count 230 246 PT 13.0 H INR 1.18 APTT 32.4 Sodium Potassium BUN Creatinine Glucose Total Bilirubin AST ALT Alkaline Phosphatase 04/17/23 20:26 WBC Hgb Hct Plt Count PT INR APTT Sodium 132 L Potassium 3.3 L BUN 11 Creatinine 0.84 Glucose 174 H Total Bilirubin 1.0 AST 52 H ALT 26 Alkaline Phosphatase 113 <Migel Marie - Last Filed: 04/18/23 20:39> Assessment And Plan - Plan Assessment: Severe sepsis secondary to bilateral lower extremity cellulitis Chronic alcohol abuse with withdrawal Seizure disorder Plan: Severe sepsis secondary to bilateral lower extremity cellulitis Blood cultures obtained in ED, lactate now downtrending Continue broad-spectrum vancomycin/cefepime follow blood cultures Blood pressure soft, continue IV fluids Chronic alcohol abuse with withdrawal Alcohol withdrawal assessment in place As needed benzodiazepines Reports he drinks a case of beer per day Cannot say when his last drink was but alcohol level was 24 on admission Seizure disorder Cannot tell me what he takes at home, previous meds including Dilantin 100 mg p.o. 3 times daily, will attempt to confirm and restart DVT PPX: Lovenox Code status: Full Discharge Plan: Home Plan to discharge in: Greater than 2 days - Code Status/Comfort Care Code Status Assessed: Yes (Full code) Critical Care: No Time Spent Managing PTS Care (In Minutes): 25 <Vignesh Gamble - Last Filed: 04/18/23 10:50> - Plan Patient seen and examined on rounds this morning independently and plan of care reviewed with BUSINESS INTELLIGENCE DEVELOPER Mavis b/l lower extremity cellulitis, multiple blisters on feet /toes, no purulent drainage with +surrounding erythema patient lethargic, unable to obtain ROS empiric antibiotic as above continue monitoring for ETOH withdrawal, benzos as neede patient has reported drinking 1-2 cases of beer / day h/o seizure disorder no prescriptions seen on med query in last year neuro consulted; no active seizure activity during this hospitalization continue ICU level of care f/u cultures <Migel Marie - Last Filed: 04/18/23 20:39>
[2023-04-18] MEDS ORDERED: INFLUENZA VACCINE (for 6+ mo) 0.5 ML DOSE IMVAC ONE (11:00)
[2023-04-18] MEDS ORDERED: VANCOMYCIN 1 GM in NA CHLORIDE 0.9% 250 ML IVPB SCH (11:00)
[2023-04-18] MEDS: PHENYTOIN NA 100 MG/2 ML IV SCH (17:45)
[2023-04-19] MEDS: LORazepam 2 MG/ML VIAL IV SCH ×6 (00:10→20:00)
[2023-04-19] MEDS: PHENYTOIN NA 100 MG/2 ML IV SCH ×3 (00:27→16:20)
[2023-04-19 04:45] LABS: Hematocrit 33.1 % (39.6-49.0); MCV 94.5 fL (80-100); MPV 7.8 fL (7.6-11.3); Platelets 201 thou/uL (152-406)
[2023-04-19 05:15] LABS: Albumin 2.2 g/dL (3.4-5.0); Bilirubin Total 0.5 mg/dL (0.2-1.0); Potassium 2.9 mEq/L (3.5-5.1); Protein, Total 5.2 g/dL (6.4-8.2)
[2023-04-19] MEDS ORDERED: POTASSIUM PHOS IN 0.9 % NACL 15 MMOL/250 ML BAG IV ONE (06:00)
[2023-04-19] MEDS ORDERED: POTASSIUM CL SA 10 MEQ TAB PO ONE (06:30)
[2023-04-19] MEDS: NA CHLORIDE 0.9% 1,000 ML IV SCH ×2 (06:31→22:56)
[2023-04-19] MEDS: INSULIN REGULAR (HUMAN) 100 UNIT/ML SQ SCH ×4 (07:29→20:58)
--- NOTE | 2023-04-19 08:07 | P.PN ---
Subjective Date of Service: 04/19/23 Chief Complaint: Suspect seizures, alcohol withdrawal, tremors More alert, oriented x1, able to tell me more information about his home meds etc today <Vignesh Gamble - Last Filed: 04/19/23 08:02> Date of Service: 04/19/23 <Migel Marie - Last Filed: 04/19/23 16:09> Review of Systems 10-point ROS is otherwise unremarkable Neurological: Confusion <Vignesh Gamble - Last Filed: 04/19/23 08:02> Physical Examination - Vital Signs Temperature: 98.7 F Blood Pressure: 103/52 Pulse: 100 Respirations: 20 Pulse Ox (%): 96 - Physical Exam General: Alert, In no apparent distress, Oriented x1 HEENT: Atraumatic, PERRLA, EOMI Neck: Supple Respiratory: Clear to auscultation bilaterally, Normal air movement Cardiovascular: Regular rate/rhythm, Normal S1 S2 Gastrointestinal: Normal bowel sounds, No tenderness Musculoskeletal: No tenderness Integumentary: Other (ESTEBAN LE wounds with dressing in place) Neurological: Normal speech, Normal affect - Studies Medications List Reviewed: Yes <Vignesh Gamble - Last Filed: 04/19/23 08:02> Assessment And Plan - Plan Assessment: Severe sepsis secondary to bilateral lower extremity cellulitis Chronic alcohol abuse with withdrawal Seizure disorder Plan: Severe sepsis secondary to bilateral lower extremity cellulitis Blood cultures with NGTD, lactate trended down Continue empiric broad-spectrum vancomycin/cefepime WBC downtrending Chronic alcohol abuse with withdrawal Alcohol withdrawal assessment in place As needed benzodiazepines Reports he drinks a case of beer per day Cannot say when his last drink was but alcohol level was 24 on admission Seizure disorder Today was able to confirm that he does take dilantin at home Discussed with neuro, continue dilantin 100mg IV TID until tolerating PO DVT PPX: Lovenox Code status: Full Discharge Plan: Home Plan to discharge in: 48 Hours - Code Status/Comfort Care Code Status Assessed: Yes (Full ) Critical Care: No Time Spent Managing PTS Care (In Minutes): 35 <Vignesh Gamble - Last Filed: 04/19/23 08:02> - Plan Patient ok on rounds early this morning, alert/oriented x2 ate dinner, + tremor; nursing staff reported no hallucinations patient did want to sit up to bedside' continue empiric antibiotics later in morning, patient was noted to be much more agitated Continuously wanting to get out of bed, pulled multiple IVs Patient was given extra as needed Ativan, received Haldol Continued to be a harm to himself, soft restraints were applied to his wrist bilaterally Patient with alcoholic hallucinosis Started on Precedex, Dr. Penn consulted <Migel Marie - Last Filed: 04/19/23 16:09>
[2023-04-19] MEDS: THIAMINE 200 MG/2 ML INJ IVP SCH (08:48)
[2023-04-19] MEDS: ENOXAPARIN 40 MG/0.4 ML SQ SCH (08:48)
[2023-04-19] MEDS: CEFEPIME 2 GM in NA CHLORIDE 0.9% 100 ML IV SCH ×2 (08:49→20:18)
[2023-04-19] MEDS: FOLIC ACID 1 MG TABLET PO SCH (08:49)
[2023-04-19] MEDS: VANCOMYCIN 1 GM in NA CHLORIDE 0.9% 250 ML IVPB SCH ×2 (08:50→16:21)
[2023-04-19] MEDS: HALOPERIDOL LACT 5 MG/ML INJ IM PRN (10:24)
[2023-04-19] MEDS ORDERED: DIPHENHYDRAMINE 50 MG/ML VIAL IV ONE (11:00)
[2023-04-19] MEDS ORDERED: LORazepam 2 MG/ML VIAL IV ONE (11:00)
[2023-04-19] MEDS ORDERED: DEXMEDETOMIDINE HCL 200 MCG in NA CHLORIDE 0.9% 98 ML IV SCH (11:00)
[2023-04-19] MEDS: DEXMEDETOMIDINE HCL 1,000 MCG in NA CHLORIDE 0.9% 490 ML IV SCH (14:12)
[2023-04-19 18:23] LABS: Magnesium 2.1 mg/dL (1.6-2.4); Potassium 3.2 mEq/L (3.5-5.1)
[2023-04-19 18:33] LABS: Phosphorus 1.2 mg/dL (2.5-4.9)
[2023-04-19] MEDS ORDERED: KCL 20 MEQ/100 mL IVPB 20 MEQ/100 ML BAG IV SCH (23:00)
[2023-04-20] MEDS: VANCOMYCIN 1 GM in NA CHLORIDE 0.9% 250 ML IVPB SCH ×3 (00:21→17:45)
[2023-04-20] MEDS: PHENYTOIN NA 100 MG/2 ML IV SCH ×3 (00:26→17:46)
[2023-04-20] MEDS ORDERED: POTASSIUM PHOS IN 0.9 % NACL 15 MMOL/250 ML BAG IV ONE ×2 (01:00→07:00)
[2023-04-20] MEDS: LORazepam 2 MG/ML VIAL IV SCH ×5 (04:00→22:00)
[2023-04-20 05:22] LABS: MCV 94.2 fL (80-100); Platelets 236 thou/uL (152-406); RBC Red Blood Cell Count 3.93 M/uL (4.33-5.43)
[2023-04-20 05:43] LABS: Albumin 2.3 g/dL (3.4-5.0); Bilirubin Total 0.3 mg/dL (0.2-1.0); Potassium 3.2 mEq/L (3.5-5.1); Protein, Total 5.7 g/dL (6.4-8.2)
[2023-04-20 05:57] LABS: Magnesium 1.8 mg/dL (1.6-2.4)
[2023-04-20 06:01] LABS: Phosphorus 1.4 mg/dL (2.5-4.9)
[2023-04-20] MEDS ORDERED: MAGNESIUM SULFATE 1 gm IVPB 1 GM/100 ML BAG IV ONE (07:00)
[2023-04-20] MEDS: INSULIN REGULAR (HUMAN) 100 UNIT/ML SQ SCH ×5 (07:30→21:00)
[2023-04-20] MEDS: LORazepam 2 MG/ML VIAL IV PRN ×4 (08:42→20:18)
[2023-04-20] MEDS ORDERED: POTASSIUM CL SA 10 MEQ TAB PO ONE (09:00)
--- NOTE | 2023-04-20 10:14 | P.PN ---
Subjective Date of Service: 04/20/23 Chief Complaint: Suspect seizures, alcohol withdrawal, tremors Subjective: Worsening Became more agitated throughout the day yesterday requiring Precedex drip, currently titrated up to 0.8 mcg/kg. Now resting in bed comfortably <Vignesh Gamble - Last Filed: 04/20/23 10:10> Date of Service: 04/20/23 <Migel Marie - Last Filed: 04/20/23 21:45> Review of Systems is unable to be obtained <Vignesh Gamble - Last Filed: 04/20/23 10:10> Physical Examination - Vital Signs Temperature: 97.6 F Blood Pressure: 121/80 Pulse: 67 Respirations: 19 Pulse Ox (%): 98 - Physical Exam General: Alert, In no apparent distress, Oriented x1, Confused, Other (agitated) HEENT: Atraumatic Neck: Supple Respiratory: Clear to auscultation bilaterally, Normal air movement Cardiovascular: Regular rate/rhythm, Normal S1 S2 Gastrointestinal: Normal bowel sounds, No tenderness Musculoskeletal: No contractures Integumentary: No rashes Neurological: Abnormal speech (Speech slurred) - Studies Medications List Reviewed: Yes <Vignesh Gamble - Last Filed: 04/20/23 10:10> Assessment And Plan - Plan Assessment: Severe sepsis secondary to bilateral lower extremity cellulitis Chronic alcohol abuse with withdrawal Seizure disorder Plan: Severe sepsis secondary to bilateral lower extremity cellulitis Blood cultures with NGTD, lactate trended down Continue empiric broad-spectrum vancomycin/cefepime WBC downtrending Chronic alcohol abuse with withdrawal More agitated/confused with hallucinations starting 04/19 Alcohol withdrawal assessment in place As needed benzodiazepines Now requiring Precedex starting 04/19 currently at 0.8mcg/kg tolerating well Reports he drinks a case of beer per day Cannot say when his last drink was but alcohol level was 24 on admission Seizure disorder was able to confirm that he does take dilantin at home Discussed with neuro, continue dilantin 100mg IV TID until tolerating PO DVT PPX: Lovenox Code status: Full Discharge Plan: Home Plan to discharge in: Greater than 2 days - Code Status/Comfort Care Code Status Assessed: Yes (Full) Critical Care: No Time Spent Managing PTS Care (In Minutes): 35 <Vignesh Gamble - Last Filed: 04/20/23 10:10> - Plan Patient seen and examined on rounds this morning precedex started 04/19, Dr. Penn consulted PRN justino confused <Migel Marie - Last Filed: 04/20/23 21:45>
[2023-04-20] MEDS: ENOXAPARIN 40 MG/0.4 ML SQ SCH (10:18)
[2023-04-20] MEDS: CEFEPIME 2 GM in NA CHLORIDE 0.9% 100 ML IV SCH ×2 (10:18→20:37)
[2023-04-20] MEDS: FOLIC ACID 1 MG TABLET PO SCH (10:18)
[2023-04-20] MEDS: NA CHLORIDE 0.9% 1,000 ML IV SCH ×2 (10:24→20:37)
[2023-04-20] MEDS: THIAMINE 200 MG/2 ML INJ IVP SCH (10:24)
[2023-04-20] MEDS: DEXMEDETOMIDINE HCL 1,000 MCG in NA CHLORIDE 0.9% 490 ML IV SCH (12:58)
[2023-04-20] MEDS ORDERED: D10W 250 ML BAG IV PRN (18:13)
[2023-04-21] MEDS: PHENYTOIN NA 100 MG/2 ML IV SCH ×3 (00:25→17:57)
[2023-04-21] MEDS: VANCOMYCIN 1 GM in NA CHLORIDE 0.9% 250 ML IVPB SCH ×3 (00:25→17:57)
[2023-04-21] MEDS: LORazepam 2 MG/ML VIAL IV SCH ×2 (03:59→10:00)
[2023-04-21] MEDS: DEXMEDETOMIDINE HCL 1,000 MCG in NA CHLORIDE 0.9% 490 ML IV SCH (06:00)
[2023-04-21 06:42] LABS: MCV 94.6 fL (80-100); MPV 6.7 fL (7.6-11.3); Platelets 256 thou/uL (152-406); RBC Red Blood Cell Count 4.23 M/uL (4.33-5.43)
[2023-04-21] MEDS: NA CHLORIDE 0.9% 1,000 ML IV SCH ×2 (07:00→18:11)
[2023-04-21 07:01] LABS: Albumin 2.1 g/dL (3.4-5.0); Bilirubin Total 0.3 mg/dL (0.2-1.0); Phosphorus 2.1 mg/dL (2.5-4.9); Potassium 3.3 mEq/L (3.5-5.1); Protein, Total 5.7 g/dL (6.4-8.2)
[2023-04-21] MEDS: INSULIN REGULAR (HUMAN) 100 UNIT/ML SQ SCH ×4 (07:30→21:00)
--- NOTE | 2023-04-21 08:01 | EKG ---
Test Date: 2023-04-17 Test Time: 21:24:29 Exerciser Horse: ADONAY MEASUREMENT RESULTS: Intervals: Rate: 110 NC: 164 QRSD: 78 QT: 328 QTc: 443 [place]: P: 22 NC: 164 QRS: 54 T: 6 INTERPRETIVE STATEMENTS: Sinus tachycardia Otherwise normal ECG Compared to ECG 08/04/2022 20:11:59 Sinus rhythm no longer present Electronically Signed On 04-21-23 07:53:50 CDT by Cristhian Hernandez
[2023-04-21] MEDS: FOLIC ACID 1 MG TABLET PO SCH (09:00)
[2023-04-21] MEDS: ENOXAPARIN 40 MG/0.4 ML SQ SCH (11:45)
[2023-04-21] MEDS: THIAMINE 200 MG/2 ML INJ IVP SCH (11:45)
[2023-04-21] MEDS: CEFEPIME 2 GM in NA CHLORIDE 0.9% 100 ML IV SCH ×2 (11:46→21:00)
--- NOTE | 2023-04-21 13:13 | P.PN ---
Subjective Date of Service: 04/21/23 Chief Complaint: Suspect seizures, alcohol withdrawal, tremors Patient is sedated on Precedex. He is unable to give any subjective complaint. Agitation is well controlled. Physical Examination - Vital Signs Temperature: 94.7 F Blood Pressure: 132/88 Pulse: 66 Respirations: 15 Pulse Ox (%): 100 - Studies Medications List Reviewed: Yes Assessment And Plan - Plan Physical Exam General: Alert, In no apparent distress, sedated. HEENT: Atraumatic Neck: Supple Respiratory: Clear to auscultation bilaterally, Normal air movement Cardiovascular: Regular rate/rhythm, Normal S1 S2 Gastrointestinal: Normal bowel sounds, No tenderness Musculoskeletal: No contractures Integumentary: No rashes Neurological: Sedated. He moves all extremities spontaneously Diagnosis Severe sepsis secondary to bilateral lower extremity cellulitis Chronic alcohol abuse with withdrawal Seizure disorder Plan: Severe sepsis secondary to bilateral lower extremity cellulitis Blood cultures with NGTD, lactate trended down Patient is on empiric broad-spectrum vancomycin/cefepime Leukocytosis resolved. Chronic alcohol abuse with withdrawal/alcohol withdrawal seizures Currently on Precedex drip As needed benzodiazepines Alcohol withdrawal symptoms treatment per [facility] protocol. Seizure disorder was able to confirm that he does take dilantin at home Dr. Paz is aware. Continue dilantin 100mg IV TID until tolerating PO Neurochecks. Seizure precautions. DVT PPX: Lovenox Code status: Full
[2023-04-21] MEDS: LORazepam 2 MG/ML VIAL IV PRN ×3 (15:06→22:09)
[2023-04-22] MEDS: PHENYTOIN NA 100 MG/2 ML IV SCH ×3 (00:43→18:37)
[2023-04-22] MEDS: DEXMEDETOMIDINE HCL 1,000 MCG in NA CHLORIDE 0.9% 490 ML IV SCH ×2 (00:43→19:08)
[2023-04-22] MEDS: VANCOMYCIN 1 GM in NA CHLORIDE 0.9% 250 ML IVPB SCH ×2 (00:43→09:00)
[2023-04-22] MEDS: NA CHLORIDE 0.9% 1,000 ML IV SCH ×3 (03:00→23:00)
[2023-04-22] MEDS: LORazepam 2 MG/ML VIAL IV PRN ×8 (03:45→23:49)
[2023-04-22 06:01] LABS: Hematocrit 39.7 % (39.6-49.0); MCV 93.7 fL (80-100); MPV 6.4 fL (7.6-11.3); Platelets 265 thou/uL (152-406); RBC Red Blood Cell Count 4.24 M/uL (4.33-5.43)
[2023-04-22 06:15] LABS: Albumin 2.1 g/dL (3.4-5.0); Bilirubin Total 0.3 mg/dL (0.2-1.0); Phosphorus 2.1 mg/dL (2.5-4.9); Potassium 3.3 mEq/L (3.5-5.1); Protein, Total 5.6 g/dL (6.4-8.2)
[2023-04-22] MEDS ORDERED: POTASSIUM 25 MEQ EFFERV TAB PO ONE (06:36)
[2023-04-22] MEDS: INSULIN REGULAR (HUMAN) 100 UNIT/ML SQ SCH ×4 (07:30→20:51)
[2023-04-22 08:49] LABS: Magnesium 1.8 mg/dL (1.6-2.4)
[2023-04-22] MEDS: THIAMINE 200 MG/2 ML INJ IVP SCH (09:53)
[2023-04-22] MEDS: ENOXAPARIN 40 MG/0.4 ML SQ SCH (09:53)
[2023-04-22] MEDS: FOLIC ACID 1 MG TABLET PO SCH (09:53)
[2023-04-22] MEDS: CEFEPIME 2 GM in NA CHLORIDE 0.9% 100 ML IV SCH (09:57)
--- NOTE | 2023-04-22 11:17 | CON ---
History Of Present Illness: Patient is a 52-year-old male was consulted for evaluation of cellulitis and leukocytosis, which has already resolved. Patient has been treated with vancomycin and cefepime . Has significant past medical history of heavy alcohol use and was found in a ditch, brought in by ambulance for further evaluation, was admitted for sepsis, cellulitis of lower extremities, and wound s to the legs, which are being evaluated by Wound Care Team. His blood cultures are being negative. His current lab data showing that his white count has stabilized around 7, initially on admission wa s 24,000. Kidney function and liver function are within normal limits with total bilirubin of 0.3 an d creatinine of 0.4. Albumin level is 2.1. Past Medical History: EtOH abuse, seizure disorder. Social History: Tobacco positive. Alcohol positive. Family History: Noncontributory. Medications: Vancomycin, cefepime. See MAR for other medications. Allergies: TRAZODONE. Review of Systems: Unable to obtain. Physical Examination: General: A 52-year-old male, lying in bed, not in any acute cardiopulmonary distress. Vital Signs: Temperature 97, pulse 58, respiration 15, blood pressure 119/78. Extremities: Examination of lower extremity shows bilateral heel ulceration, superficial with bliste r formation, possibly secondary to walking barefoot or ill-fitting shoes. No erythematous changes or swelling or redness noted or increased warmth noted on lower extremity. Deformed and thickened nail s were noted on both feet. Laboratory Data: Shows BUN of 3, creatinine of 0.4. ALT, AST 16 and 10 respectively. CBC shows WBC 7.6, hemoglobin 13.4, platelets 265. Chest x-ray is negative. Blood cultures are negative to date. CT head and cervical spine done on 04/17 shows no acute injuries. Assessment And Plan: Lower extremity wounds, possibly secondary to ill-fitting shoes or walking bare foot causing blisters, which are being treated by Wound Care Team. At this time, we will recommend t o stop vancomycin and cefepime and switch patient to Rocephin, can be switched to doxycycline or cefd inir on discharge for 7 more days. We will follow the patient and continue wound care as per wound t eam. We will follow the patient as needed. Thank you for consult. SHAWNEE/MELVINA Voice ID: [id number] Report ID: [id number]
[2023-04-22] MEDS ORDERED: VANCOMYCIN 1.25 GM in NA CHLORIDE 0.9% 250 ML IVPB SCH (12:00)
--- NOTE | 2023-04-22 14:03 | P.PN ---
Subjective Date of Service: 04/22/23 Chief Complaint: Suspect seizures, alcohol withdrawal, tremors Patient is more awake and verbal though confused and oriented only to person. No agitation today. Currently on low-dose Precedex. Physical Examination - Vital Signs Temperature: 96.9 F Blood Pressure: 103/91 Pulse: 87 Respirations: 21 Pulse Ox (%): 99 - Studies Medications List Reviewed: Yes Assessment And Plan - Plan Physical Exam General: Alert, In no apparent distress, sedated. HEENT: Atraumatic Neck: Supple Respiratory: Clear to auscultation bilaterally, Normal air movement Cardiovascular: Regular rate/rhythm, Normal S1 S2 Gastrointestinal: Normal bowel sounds, No tenderness Musculoskeletal: No contractures Integumentary: No rashes Neurological: Sedated. He moves all extremities spontaneously Diagnosis Severe sepsis secondary to bilateral lower extremity cellulitis Chronic alcohol abuse with withdrawal Seizure disorder Plan: Severe sepsis secondary to bilateral lower extremity cellulitis Blood cultures with NGTD, lactate trended down Infectious disease input appreciated. Antibiotics transition to oral doxycycline. Leukocytosis resolved. Chronic alcohol abuse with withdrawal/alcohol withdrawal seizures Improving Currently on Precedex drip As needed benzodiazepines Alcohol withdrawal symptoms treatment per [facility] protocol. Seizure disorder Patient is on Dilantin at home. Dr. Paz is aware. Continue dilantin 100mg IV TID until tolerating PO Neurochecks. Seizure precautions. DVT PPX: Lovenox Code status: Full
[2023-04-22] MEDS: DOXYCYCLINE 100 MG CAP PO SCH (20:36)
[2023-04-23] MEDS: PHENYTOIN NA 100 MG/2 ML IV SCH ×3 (01:00→17:16)
[2023-04-23] MEDS: LORazepam 2 MG/ML VIAL IV PRN ×3 (01:14→18:53)
[2023-04-23 07:17] LABS: Potassium 3.2 mEq/L (3.5-5.1)
[2023-04-23] MEDS: INSULIN REGULAR (HUMAN) 100 UNIT/ML SQ SCH ×4 (07:30→20:44)
[2023-04-23 07:54] LABS: Absolute Lymphocytes (CBC) 1.5 K/uL (0.7-4.9); Hematocrit 39.8 % (39.6-49.0); Lymphocytes % 17.7 % (15.3-44.8); MCV 93.6 fL (80-100); MPV 6.7 fL (7.6-11.3); Platelets 279 thou/uL (152-406); RBC Red Blood Cell Count 4.26 M/uL (4.33-5.43)
[2023-04-23] MEDS ORDERED: CEFTRIAXONE 1,000 MG in NA CHLORIDE 0.9% 50 ML IVPB SCH (09:00)
[2023-04-23] MEDS: DOXYCYCLINE 100 MG CAP PO SCH ×2 (09:27→21:00)
[2023-04-23] MEDS: ENOXAPARIN 40 MG/0.4 ML SQ SCH (09:28)
[2023-04-23] MEDS: FOLIC ACID 1 MG TABLET PO SCH (09:28)
[2023-04-23] MEDS: THIAMINE 200 MG/2 ML INJ IVP SCH (09:28)
[2023-04-23] MEDS: ZINC OXIDE 20% OINTMENT 60gm TOP SCH (09:29)
[2023-04-23] MEDS: DEXMEDETOMIDINE HCL 1,000 MCG in NA CHLORIDE 0.9% 490 ML IV SCH (11:17)
[2023-04-23] MEDS: NA CHLORIDE 0.9% 1,000 ML IV SCH ×2 (11:17→21:02)
--- NOTE | 2023-04-23 13:02 | P.PN ---
Subjective Date of Service: 04/23/23 Chief Complaint: Suspect seizures, alcohol withdrawal, tremors According to report patient was more agitated last night which led to increasing Precedex rate. Patient was sedated during my examination this morning. Physical Examination - Vital Signs Temperature: 97 F Blood Pressure: 120/82 Pulse: 81 Respirations: 16 Pulse Ox (%): 100 - Studies Microbiology Data (last 24 hrs): 04/17/23 22:15 Blood - Blood Aerobic Blood Culture - Final No growth in 5 days. 04/17/23 22:15 Blood - Blood Anaerobic Blood Culture - Final No growth in 5 days. 04/17/23 22:00 Blood - Blood Aerobic Blood Culture - Final No growth in 5 days. 04/17/23 22:00 Blood - Blood Anaerobic Blood Culture - Final No growth in 5 days. Medications List Reviewed: Yes Assessment And Plan - Plan Physical Exam General: In no apparent distress, sedated. Neck: Supple Respiratory: Clear to auscultation bilaterally, Normal air movement Cardiovascular: Regular rate/rhythm, Normal S1 S2 Gastrointestinal: Normal bowel sounds, No tenderness Musculoskeletal: No contractures Integumentary: No rashes Neurological: Sedated. He moves all extremities spontaneously Diagnosis Severe sepsis secondary to bilateral lower extremity cellulitis Chronic alcohol abuse with withdrawal Seizure disorder Plan: Severe sepsis secondary to bilateral lower extremity cellulitis Blood cultures with NGTD, lactate trended down Infectious disease input appreciated. Antibiotics transition to oral doxycycline. Leukocytosis resolved. Chronic alcohol abuse with withdrawal/alcohol withdrawal seizures Currently on Precedex drip. No significant change from yesterday As needed benzodiazepines Alcohol withdrawal symptoms treatment per [facility] protocol. Seizure disorder Patient is on Dilantin at home. Dr. Paz is aware. Continue dilantin 100mg IV TID until tolerating PO Neurochecks. Seizure precautions. DVT PPX: Lovenox Code status: Full
[2023-04-23] MEDS ORDERED: LORazepam 2 MG/ML VIAL IV ONE (17:56)
[2023-04-24] MEDS: DEXMEDETOMIDINE HCL 1,000 MCG in NA CHLORIDE 0.9% 490 ML IV SCH ×3 (00:11→22:10)
[2023-04-24] MEDS: LORazepam 2 MG/ML VIAL IV PRN ×9 (00:19→23:53)
[2023-04-24] MEDS: PHENYTOIN NA 100 MG/2 ML IV SCH ×3 (01:21→17:01)
[2023-04-24] MEDS: NA CHLORIDE 0.9% 1,000 ML IV SCH ×2 (07:09→17:01)
[2023-04-24 07:11] LABS: Absolute Lymphocytes (CBC) 1.4 K/uL (0.7-4.9); Hematocrit 42.6 % (39.6-49.0); Lymphocytes % 15.3 % (15.3-44.8); MCV 93.5 fL (80-100); MPV 6.1 fL (7.6-11.3); Platelets 275 thou/uL (152-406); RBC Red Blood Cell Count 4.55 M/uL (4.33-5.43)
[2023-04-24 07:26] LABS: Bicarbonate 25 mEq/L (21-32); Glomerular Filtration Rate 142 ml/min (=/>90); Glucose Level 167 mg/dL (74-106); Potassium 3.3 mEq/L (3.5-5.1); Sodium Level 139 mEq/L (136-145)
[2023-04-24 07:27] LABS: BUN Blood Urea Nitrogen < 3 mg/dL (7-18)
[2023-04-24] MEDS: INSULIN REGULAR (HUMAN) 100 UNIT/ML SQ SCH ×4 (07:30→21:00)
[2023-04-24] MEDS: KCL 20 MEQ/100 mL IVPB 20 MEQ/100 ML BAG IV SCH ×3 (09:00→11:00)
[2023-04-24] MEDS: FOLIC ACID 1 MG TABLET PO SCH (09:00)
[2023-04-24] MEDS: DOXYCYCLINE 100 MG CAP PO SCH ×2 (09:00→20:52)
[2023-04-24] MEDS: THIAMINE 200 MG/2 ML INJ IVP SCH (09:01)
[2023-04-24] MEDS: ENOXAPARIN 40 MG/0.4 ML SQ SCH (09:02)
[2023-04-24] MEDS: ZINC OXIDE 20% OINTMENT 60gm TOP SCH (09:03)
[2023-04-24] MEDS ORDERED: HALOPERIDOL LACT 5 MG/ML INJ IV ONE (10:11)
--- NOTE | 2023-04-24 12:00 | P.PN ---
Subjective Date of Service: 04/24/23 Chief Complaint: Suspect seizures, alcohol withdrawal, tremors Patient is more agitated than before. He has been screaming,cursing and trying to get out of bed since last night. He is currently on maximum dose Precedex. Patient was sedated during my examination. Physical Examination - Vital Signs Temperature: 98.3 F Blood Pressure: 123/81 Pulse: 81 Respirations: 14 Pulse Ox (%): 100 - Studies Medications List Reviewed: Yes Assessment And Plan - Plan Physical Exam General: In no apparent distress, sedated. Neck: Supple Respiratory: Clear to auscultation bilaterally, Normal air movement Cardiovascular: Regular rate/rhythm, Normal S1 S2 Gastrointestinal: Normal bowel sounds, No tenderness Musculoskeletal: No contractures Integumentary: No rashes Neurological: Sedated. He moves all extremities spontaneously, intermittently agitated. Diagnosis Severe sepsis secondary to bilateral lower extremity cellulitis Chronic alcohol abuse with withdrawal Seizure disorder Plan: Severe sepsis secondary to bilateral lower extremity cellulitis Blood cultures with NGTD, lactate trended down Infectious disease input appreciated. Antibiotics transitioned to oral doxycycline. Leukocytosis resolved. Continue oral doxycycline as possible. Wound care input appreciated. Continue local wound care. Chronic alcohol abuse with withdrawal/alcohol withdrawal seizures Currently on Precedex drip. As needed benzodiazepines. Suspect intermittent agitation is related to hallucinations IV Haldol as needed. Alcohol withdrawal symptoms treatment per [facility] protocol. Seizure disorder Patient is on Dilantin at home. Dr. Paz is aware. Continue dilantin 100mg IV TID until tolerating PO Neurochecks. Seizure precautions. DVT PPX: Lovenox Code status: Full
[2023-04-24] MEDS ORDERED: POTASSIUM 25 MEQ EFFERV TAB ONE (13:01)
[2023-04-24] MEDS: HALOPERIDOL LACT 5 MG/ML INJ IM PRN (14:22)
[2023-04-24] MEDS: ENSURE ENLIVE 237 ML CAN PO SCH (20:52)
[2023-04-24] MEDS: JUVEN PACKET PO SCH (20:52)
[2023-04-24] MEDS: HALOPERIDOL LACT 5 MG/ML INJ IV PRN (22:03)
[2023-04-25] MEDS: PHENYTOIN NA 100 MG/2 ML IV SCH ×3 (01:04→16:26)
[2023-04-25] MEDS: NA CHLORIDE 0.9% 1,000 ML IV SCH ×2 (01:17→11:17)
[2023-04-25 04:48] LABS: Absolute Lymphocytes (CBC) 1.7 K/uL (0.7-4.9); Hematocrit 38.3 % (39.6-49.0); Lymphocytes % 19.2 % (15.3-44.8); MCV 92.7 fL (80-100); MPV 6.3 fL (7.6-11.3); Platelets 318 thou/uL (152-406); RBC Red Blood Cell Count 4.14 M/uL (4.33-5.43)
[2023-04-25 05:10] LABS: Magnesium 1.5 mg/dL (1.6-2.4); Phosphorus 2.6 mg/dL (2.5-4.9); Potassium 3.3 mEq/L (3.5-5.1)
[2023-04-25 05:30] VITALS: BMI 21.4
[2023-04-25] MEDS ORDERED: Magnesium Sulfate 2gm IVPB 2 G/50 ML BAG IV ONE (07:00)
[2023-04-25] MEDS: INSULIN REGULAR (HUMAN) 100 UNIT/ML SQ SCH ×2 (07:30→11:17)
[2023-04-25] MEDS: THIAMINE 200 MG/2 ML INJ IVP SCH (08:33)
[2023-04-25] MEDS: ENOXAPARIN 40 MG/0.4 ML SQ SCH (08:33)
[2023-04-25] MEDS: ENSURE ENLIVE 237 ML CAN PO SCH (08:34)
[2023-04-25] MEDS: JUVEN PACKET PO SCH (08:34)
[2023-04-25] MEDS: DOXYCYCLINE 100 MG CAP PO SCH (08:34)
[2023-04-25] MEDS: FOLIC ACID 1 MG TABLET PO SCH (08:34)
[2023-04-25] MEDS: ZINC OXIDE 20% OINTMENT 60gm TOP SCH (08:34)
[2023-04-25] MEDS ORDERED: POTASSIUM 25 MEQ EFFERV TAB PO ONE (09:00)
[2023-04-25 09:50] VITALS: O2SAT 98
[2023-04-25] MEDS: DEXMEDETOMIDINE HCL 1,000 MCG in NA CHLORIDE 0.9% 490 ML IV SCH (11:15)
--- NOTE | 2023-04-25 11:52 | P.PN ---
Subjective Date of Service: 04/25/23 Chief Complaint: Suspect seizures, alcohol withdrawal, tremors Patient is still sedated on high-dose Precedex drip. No issues overnight. Physical Examination - Vital Signs Temperature: 96.8 F Blood Pressure: 99/75 Pulse: 82 Respirations: 18 Pulse Ox (%): 100 - Studies Medications List Reviewed: Yes Assessment And Plan - Plan Physical Exam General: In no apparent distress, sedated. Neck: Supple Respiratory: Clear to auscultation bilaterally, Normal air movement Cardiovascular: Regular rate/rhythm, Normal S1 S2 Gastrointestinal: Normal bowel sounds, No tenderness Musculoskeletal: No contractures Integumentary: No rashes Neurological: Sedated. He moves all extremities spontaneously, intermittently agitated. Diagnosis Severe sepsis secondary to bilateral lower extremity cellulitis Chronic alcohol abuse with withdrawal Seizure disorder Plan: Severe sepsis secondary to bilateral lower extremity cellulitis Blood cultures with NGTD, lactate trended down Infectious disease input appreciated. Antibiotics transitioned to oral doxycycline. Leukocytosis resolved. Continue oral doxycycline as possible. Wound care input appreciated. Continue local wound care. Chronic alcohol abuse with withdrawal/alcohol withdrawal seizures Currently on Precedex drip. Wean Precedex drip. As needed benzodiazepines. Suspect intermittent extreme agitation is related to hallucinations IV Haldol as needed. Alcohol withdrawal symptoms treatment per [facility] protocol. Seizure disorder Patient is on Dilantin at home. Case discussed with Dr. Paz. Continue dilantin 100mg IV TID until tolerating PO Neurochecks. Seizure precautions. DVT PPX: Lovenox Code status: Full
[2023-04-25] MEDS: LORazepam 2 MG/ML VIAL IV PRN (15:50)
[2023-04-25] MEDS: HALOPERIDOL LACT 5 MG/ML INJ IV PRN (16:26)
--- NOTE | 2023-04-25 17:56 | P.DS ---
Admission Date: 04/17/23 Discharge Date: 04/25/23 Disposition: AMA-LEFT AGAINST MEDICAL ADVIC Reason for Admission: Suspect seizures, alcohol withdrawal, tremors Brief History of Present Illness: 49-year-old male patient with a medical history significant for alcohol abuse, history of suspected seizure disorder and Parkinson disease who was brought to the emergency room because of multiple issues. He has ulcers in the lower extremity which appear infected and multiple blisters. He also has issues with shaking and significant suspicion for underlying septic condition. Labs was concern with elevated lactic acid of greater than 3, tachycardia and elevated alcohol level of 24. He was started on IV fluid bolus, antibiotic therapy and was admitted for inpatient care. Patient reported that he had accidentally busted a blister and also messed up one of his toes. He reported an history of daily use of alcohol and tobacco products. Patient was hospitalized for further management. Hospital Course: Diagnosis Severe sepsis secondary to bilateral lower extremity cellulitis Chronic alcohol abuse with withdrawal Seizure disorder Patient admitted to the medical floor and the following medical problems addressed: Plan: Severe sepsis secondary to bilateral lower extremity cellulitis Blood cultures showed no growth to date, lactate trended down Seen by infectious disease. Patient initially treated with broad-spectrum antibiotics and transitioned to oral doxycycline. Leukocytosis resolved. Local wound care done. Chronic alcohol abuse with withdrawal/alcohol withdrawal seizures Patient treated with Precedex drip and benzodiazepines as needed. Patient continues to experience intermittent episodes of extreme agitated Hallucinations suspected which was managed with IV Haldol. Patient's sons came to the hospital today and demanded for patient to be discharged. I explained to them patient is currently experiencing alcohol withdrawal with extreme agitation which is being managed with medications for now. I recommended them patient stays in the hospital and complete treatment for the alcohol withdrawal. I explained to them high risk of falls, agitation and seizures including fatal head injuries. They voiced understanding and stated they are used to patient exhibiting behaviors as mentioned and that he will be cautious to make sure he does not fall or hurt himself. They refused further stay in the hospital and signed out AGAINST MEDICAL ADVICE. Seizure disorder Patient is on Dilantin at home. Case discussed with Dr. Paz. Patient was treated with IV Dilantin during the hospital stay. Family encouraged to resume patient's Dilantin at home to keep him from having s eizures if he is able to tolerate oral intake. Also discussed with them risk of aspiration with feeding. They voiced understanding. Family were advised to bring patient back to the emergency department immediately if they change their mind or patient becomes more sick or agitated or experience seizures. Vital Signs/Physical Exam: Temp Pulse Resp BP Pulse Ox 97.0 F 83 16 97/65 100 04/25/23 12:00 04/25/23 13:00 04/25/23 13:00 04/25/23 13:00 04/25/23 13:00 Laboratory Data at Discharge: WBC 8.80 thou/uL (4.3-10.9) 04/25/23 04:30 Hgb 13.1 g/dL (13.6-17.9) L D 04/25/23 04:30 Hct 38.3 % (39.6-49.0) L 04/25/23 04:30 Plt Count 318 thou/uL (152-406) 04/25/23 04:30 PT 13.0 SECONDS (9.5-12.5) H 04/17/23 20:26 INR 1.18 04/17/23 20:26 APTT 32.4 SECONDS (24.3-36.9) 04/17/23 20:26 Sodium 142 mEq/L (136-145) 04/25/23 04:30 Potassium 3.3 mEq/L (3.5-5.1) L 04/25/23 04:30 BUN 5 mg/dL (7-18) L 04/25/23 04:30 Creatinine 0.36 mg/dL (0.70-1.30) L 04/25/23 04:30 Glucose 186 mg/dL (74-106) H 04/25/23 04:30 Phosphorus 2.6 mg/dL (2.5-4.9) 04/25/23 04:30 Magnesium 1.5 mg/dL (1.6-2.4) L 04/25/23 04:30 Total Bilirubin 0.3 mg/dL (0.2-1.0) 04/22/23 05:47 AST 10 U/L (15-37) L 04/22/23 05:47 ALT 16 U/L (16-61) 04/22/23 05:47 Alkaline Phosphatase 88 U/L (45-117) 11/01/23 05:47 Lipase 7 U/L (13-75) L 04/19/23 04:02 Home Medications: Metoprolol Tartrate [Lopressor*] 25 mg PO BID #60 tab 07/05/16 Multivit,Ther Iron,Ca,FA & Min [Centrum Tablet*] 1 tab PO DAILY #90 tab 07/05/16 Pantoprazole [Protonix Tab*] 40 mg PO DAILYAC #30 tab 07/05/16 Phenytoin Sodium Extended [Dilantin] 100 mg PO TID #90 capsule 07/05/16 Thiamine HCl [Vitamin B-1*] 100 mg PO DAILY #30 tablet 07/05/16 chlordiazePOXIDE HCl [Librium*] 25 mg PO SEECOM #70 cap 07/05/16 risperiDONE [Risperdal 1 mg tab*] 2 mg PO DAILY #30 tab 07/05/16 Followup: NONE,NONE [Primary Care Provider] -
[2023-04-25 18:11] VITALS: BP 111/69; TEMP 98.4
== END 2023-04-25 17:30 | disposition left against medical advice (07) | DRG 872 ==
LOC: ER 19:45 → ERHOLD 22:41 → 3RD-ICU 04-18 05:32
PROVIDERS: ADMIT Internal Medicine Nephrology; ATTEND Internal Medicine
DX: A41.9 Sepsis, unspecified organism (principal); G40.509 Epileptic seizures related to external causes, not intractable, without status epilepticus; L03.116 Cellulitis of left lower limb; L03.115 Cellulitis of right lower limb; F10.232 Alcohol dependence with withdrawal with perceptual disturbance; F31.9 Bipolar disorder, unspecified; I10 Essential (primary) hypertension; E87.6 Hypokalemia; K21.9 Gastro-esophageal reflux disease without esophagitis; G20.A1 Parkinson's disease without dyskinesia, without mention of fluctuations; D72.829 Elevated white blood cell count, unspecified; S90.822A Blister (nonthermal), left foot, initial encounter; S90.821A Blister (nonthermal), right foot, initial encounter; S09.90XA Unspecified injury of head, initial encounter; F17.210 Nicotine dependence, cigarettes, uncomplicated; R65.20 Severe sepsis without septic shock; Z60.2 Problems related to living alone; Z63.5 Disruption of family by separation and divorce; Z78.1 Physical restraint status; Z88.5 Allergy status to narcotic agent; Z89.422 Acquired absence of other left toe(s); Z79.899 Other long term (current) drug therapy; W18.30XA Fall on same level, unspecified, initial encounter; Y99.9 Unspecified external cause status; Y92.9 Unspecified place or not applicable; Y93.9 Activity, unspecified; Y90.1 Blood alcohol level of 20-39 mg/100 ml
CPT/HCPCS: 36415; 70450; 71045; 72125; 80048; 80053; 80076; 80143; 80179; 80185; 80202; 80307; 81001; 82077; 82947; 83605; 83690; 83735; 84100; 85025; 85027; 85610; 85730; 87040; 90471; 93005; 99284; J0690; J0692; J1165; J1630; J1650; J1815; J3411; J3475; J3480; J7030; J7040; J7050; Q2009

== ENCOUNTER 2023-04-28 11:11 | Emergency (ER) | payer SELFPAY ==
--- OUTSIDE RECORDS SUMMARY | 2023-04-28 11:18 | XMS REPORT | Continuity of Care Document ---
:1970 Author Organization [facility] t Address [address] [place] [address] Care Team Providers Name Role Phone Pcp-None Primary Care Physician Unavailable HEMANT KLEIN Attending Clinician Unavailable Hemant Klein MD Attending Clinician Pan Pinto Attending Clinician Unavailable JESSICA PRADO Attending Clinician Unavailable Rayray Driscoll MD Attending Clinician Jessica Prado MD Attending Clinician Oswald Murphy MD Attending Clinician DIYA CHOWDHURY Attending Clinician Unavailable Diya Chowdhury DO Attending Clinician Fidel Cuellar Attending Clinician Unavailable JJ YARBROUGH Attending Clinician Unavailable Leticia Rowland Attending Clinician Jj Yarbrough MD Attending Clinician Faye Portillo LVN [...] Expiration Date Rhoda xiong [facility] [id number] 2022 SKILLED NURSING 00:00:00 Problems Condition Condition Condition Status Onset [...] ers E INGREDI 4-17 ity of 00:00: [place] 00 [facility] Social History Social Habit Start Date Stop Date Quantity Comments Source History of Cigarette Smoker Universi ty of tobacco use [facility] Exposure to 2022-11-01 2022-11-11 Not sure University of SARS-CoV-2 00:00:00 13:57:00 [facility] (event) [place] Tobacco use and 2022-08-10 2022-08-10 User of smokeless Un iversity of exposure 00:00:00 00:00:00 tobacco [facility] Alcohol intake 2022-08-10 2022-08-10 Current drinker Unive rsity of 00:00:00 00:00:00 of alcohol [facility] (finding) [place] Tobacco Comment 2022-08-10 2022-08-10 1/2 a pack a day Uni versity of 00:00:00 00:00:00 [facility] Sex [birth year] Universit y of 00:00:00 00:00:00 [facility] Smoking Status Start Date Stop Date Source Smokes tobacco daily 2022-08-10 00:00:00 Univers ity of [facility] Medications Ordered Filled Start Stop Current Ordering [...] DAILY, [place] 00 First dose Medical on [facility] 08/12/22 at 0900, Until Discontinu ed, Routine foLIC acid Yes 1mg 1 mg, Univer s (FOLATE) 2-21 Oral, ity of tablet 1 mg 15:00: [place] 00 First dose Medical on [facility] 08/12/22 at 0900, Until Discontinu ed, Routine foLIC acid 2022- No [id number] 1mg Take 1 Univers 1 mg tablet 08-1224 tablet by it y of 00:00: 04:59 mouth in [place] 00 :00 the Medical [facility] Branch for 30 days. oxazepam 0 202- No 15mg [Order 1 Univ ers (SERAX) 08-11 Start] ity of capsule 15 20:00: 19:59 Name: [place] mg 00 :00 oxazepam Medical (SERAX) [place] capsule 15 mg Signed Summary: 15 mg, [...] 100 mg 00 First dose Medical on [facility] 08/11/22 at 1015, Until Discontinu ed, Routine enoxaparin 0 Yes 40mg 40 mg, Unive rs (LOVENOX) 2-19 Subcutaneo ity of injection 23:00: [place], [place]ILY, [place] 40 mg 00 First dose Medical on [facility] 08/10/22 at 1700, Until Discontinu ed, Routine NaCl 0.9% 0 Yes 1000mL at 125 Univ ers (NS) IV 2-19 mL/hr, IV ity of infusion 15:00: Infusion, [place] 1,000 mL 00 CONTINUOUS Medic al , Starting Branch on [place] 08/10/22 at 0900, Until Discontinu ed, Routine foLIC acid 2022- No 5mg IV Univer s (FOLATE) 5 08-10 Piggyback, it y of mg in NaCl 15:00: 16:14 DAILY, [place] 0.9% (NS) 00 :47 First dose Medi yudy piggyback on [place] Branch 08/10/22 at 0900, Until Discontinu ed, 50 mL thiamine 2022-0 2023- No 100mg IV Univers (VITAMIN 08-10 Piggyback, ity of B1) 100 mg 15:00: 16:08 DAILY, 1 [place] in NaCl 00 :00 dose, Medical 0.9% (NS) First dose Bran ch piggyback on [place] 08/10/22 at 0900, 50 mL LORazepam 0 Yes 2mg 2 mg, Slow Un lorena (ATIVAN) 08-10 IV Push, ity of injection 2 14:52: Q4HPRN, [place] mg 57 Starting Medical on [place] Branch 08/10/22 at 0852, Until Discontinu ed, Routine, Seizures, Agitation, Anxiety Sliding 0 Yes Subcutaneo Univ ers Scale 2-19 us, AC+HS, ity of Insulin-Reg 13:30: First dose [place] ular + [facility]bg [facility] at Branch 0730, Until Discontinu ed, Routine oxazepam Yes 15mg 15 mg, Univers (SERAX) 08-10 Oral, ity of capsule 15 12:08: Q4HPRN, [place] mg 05 Starting Medical on [facility] 08/10/22 at 0608, Until Discontinu ed, Routine, Only while awake for DBP equal to or greater than 100, HR equal to or greater than 100. dextrose 0 Yes 250mL 250 mL, IV Un lorena 10% (D10W) 08-10 Infusion, ity of bolus 12:03: PRN - SEE [place] infusion 23 INSTRUCTIO Medic al 250 mL NS, Branch Administer over 60 Minutes, Other, If blood glucose is < or = 70 mg/dL and patient is unable to swallow or has mental status changes, Starting on [place] 08/10/22 at 0603
If blood glucose is [...] glucose is < 80 mg/dL, repeat.
glucagon Yes 1mg 1 mg, Univers (GLUCAGEN 08-10 Intramuscu ity of DIAGNOSTIC 12:03: lar, PRN, [place] KIT) 20 Starting Medical injection 1 on [facility] 08/10/22 at 0603, Until Discontinu ed, JACIEL, Blood Glucose < or = 70 mg/dL and patient is NPO, unable to swallow or has mental changes. ondansetron Yes 4mg 4 mg, Slow Univers (ZOFRAN 08-10 IV Push, ity of (PF)) 12:02: Q6HPRN, [place] injection 4 53 Starting Medi yudy mg on [facility] 08/10/22 at 0602, Until Discontinu ed, Routine, Nausea and Vomiting (N/V) ibuprofen Yes 200mg 200 mg, Univ ers (MOTRIN IB) 08-10 Oral, ity of tablet 200 12:02: Q6HPRN, [place] mg 45 Starting Medical on [facility] 08/10/22 at 0602, Until Discontinu ed, Routine, Pain (scale 1-3) NaCl 0.9% 2022- No 1000mL at 999 Uni vers (NS) bolus 08-10 mL/hr, ity of infusion 10:15: 13:00 1,000 mL, [place] 1,000 mL 00 :00 IV Medical Infusion, [place] ONCE, 1 dose, On [place] 08/10/22 at 0415, STAT LORazepam 2022- No .5mg 0.5 mg, Univ ers (ATIVAN) 08-10 Slow IV ity of injection 09:15: 09:19 Push, [place] 0.5 mg 00 :00 ONCE, 1 Medical dose, On [facility] 08/10/22 at 0315, STAT LORazepam 0 2022- No 1mg 1 mg, Slow U nivers (ATIVAN) 08-10 IV Push, ity of injection 1 08:00: 07:05 ONCE NOW, [place] mg 00 :00 1 dose, On Medical [facility] 08/10/22 at 0200, STAT thiamine 2022- [...] Sat Branch 08/09/22 at 2315, STAT ketorolac 2021-06- No 15mg 15 mg, Unive rs (TORADOL) 0-04-06 Slow IV ity of injection 16:00: 14:50 Push, [place] 15 mg 00 :00 ONCE, 1 Medical dose, On Branch [place] 04/06/22 at 1100, JACIEL ondansetron 2021-06- No 4mg 4 mg, Slow Univers (ZOFRAN 004-06 IV Push, ity of (PF)) 15:45: 14:50 ONCE, 1 [place] injection 4 00 :00 dose, On Medi yudy mg [place] Branch 04/06/22 at 1045, JACIEL oxazepam 2021- No 15mg 15 mg, Univer s (SERAX) 12-31 07-13 Oral, Q12H ity o f capsule 15 06:28: 06:29 TAPER, 2 [place] mg 17 :00 doses, Medical First dose Branch on Thu12/31/21 at 0130, Last dose on Thu12/31/21 at 1330, Routine multivitami Yes [id number] 1{tbl} Take 1 Univers n tablet 12-31 [id number] tablet by ity of 00:00: mouth in [place] 00 the Medical morning. Branch thiamine Yes [id number] 100mg Take 1 Univers 100 mg 12-31 [id number] tablet by ity of tablet 00:00: mouth in [place] 00 the Medical morning. Branch aspirin 81 Yes [id number] 81mg Take 1 Univers mg chewable 12-31 [id number] tablet by i ty of tablet 00:00: mouth in [place] 00 the Medical morning. Branch multivitami 2021-0 Yes [id number] 1{tbl} Take 1 Univers n tablet 7-12 [id number] tablet by ity of 00:00: mouth in [place] 00 the Medical morning. Branch thiamine 2021-0 Yes [id number] 100mg Take 1 Univers 100 mg 7-12 [id number] tablet by ity of tablet 00:00: mouth in [place] 00 the Medical morning. Branch aspirin 81 2021-0 Yes [id number] 81mg Take 1 Univers mg chewable 7-12 [id number] tablet by i ty of tablet 00:00: mouth in [place] 00 the Medical morning. Branch multivitami 2021-0 Yes [id number] 1{tbl} Take 1 Univers n tablet 7-12 [id number] tablet by ity of 00:00: mouth in [place] 00 the Medical morning. Branch thiamine 2021-0 Yes [id number] 100mg Take 1 Univers 100 mg 7-12 [id number] tablet by ity of tablet 00:00: mouth in [place] 00 the Medical morning. Branch aspirin 81 2021-0 Yes [id number] 81mg Take 1 Univers mg chewable 7-12 [id number] tablet by i ty of tablet 00:00: mouth in [place] the Medical morning. Branch multivitami 2021-0 Yes [id number] 1{tbl} Take 1 Univers n tablet 7-12 [id number] tablet by ity of 00:00: mouth in [place] the Medical morning. Branch thiamine 2021-0 Yes [id number] 100mg Take 1 Univers 100 mg 7-12 [id number] tablet by ity of tablet 00:00: mouth in [place] 00 the Medical morning. Branch aspirin 81 2021-0 Yes [id number] 81mg Take 1 Univers mg chewable 7-12 [id number] tablet by i ty of tablet 00:00: mouth in [place] 00 the Medical morning. Branch multivitami 2021-0 Yes [id number] 1{tbl} Take 1 Univers n tablet 7-12 [id number] tablet by ity of 00:00: mouth in [place] 00 the Medical morning. Branch thiamine 2021-0 Yes [id number] 100mg Take 1 Univers 100 mg 7-12 [id number] tablet by ity of tablet 00:00: mouth in [place] 00 the Medical morning. Branch aspirin 81 2021-0 Yes [id number] 81mg Take 1 Univers mg chewable 7- 059620 tablet by i ty of tablet 00:00: mouth in [place] 00 the morning. Branch multivitami 2021-0 Yes [id number] 1{tbl} Take 1 Univers n tablet 12-31 [id number] tablet by ity of 00:00: mouth in [place] 00 the morning. Branch thiamine 2021-0 Yes [id number] 100mg Take 1 Univers 100 mg - [id number] tablet by ity of tablet 00:00: mouth in [place] the morning. Branch aspirin 81 2021-0 Yes [id number] 81mg Take 1 Univers mg chewable 12-31 [id number] tablet by i ty of tablet 00:00: mouth in [place] the morning. Branch foLIC acid 2021- No [id number] 1mg Take 1 Univers 1 mg tablet 12-31 [id number] tablet by ity of 00:00: 04:59 mouth in [place] 00 :00 the [facility] morning Branch for 30 days. foLIC acid 2021-2021- No [id number] 1mg Take 1 Univers 1 mg tablet 12-31 [id number] tablet by ity of 00:00: 04:59 mouth in [place] 00 :00 the [facility] morning Branch for 30 days. foLIC acid 2021-2021- No [id number] 1mg Take 1 Univers 1 mg tablet 12-31 [id number] tablet by ity of 00:00: 04:59 mouth in [place] 00 :00 the [facility] for 30 days. metFORMIN 2021-0 Yes [id number] 500mg Take 1 Univers 500 mg 7-11 [id number] tablet by ity of tablet 00:00: mouth in [place] the [facility] morning [place] and 1 tablet in the evening. Take with meals. metFORMIN 2021-0 Yes [id number] 500mg Take 1 Univers 500 mg 7-11 [id number] tablet by ity of tablet 00:00: mouth in [place] the [facility] morning [place] and 1 tablet in the evening. Take with meals. metFORMIN 2021-0 Yes [id number] 500mg Take 1 Univers 500 mg 7-11 [id number] tablet by ity of tablet 00:00: mouth in [place] [address] the [facility] morning [place] and 1 tablet in the evening. Take with meals. metFORMIN 2021-0 Yes [id number] 500mg Take 1 Univers 500 mg 7-11 [id number] tablet by ity of tablet 00:00: mouth in [place] [address] the [facility] morning [place] and 1 tablet in the evening. Take with meals. metFORMIN Yes [id number] 500mg Take 1 Univers 500 mg 7 [id number] tablet by ity of tablet 00:00: mouth in [place] [address] the [facility] morning [place] and 1 tablet in the evening. Take with meals. metFORMIN Yes [id number] 500mg Take 1 Univers 500 mg 7 [id number] tablet by ity of tablet 00:00: mouth in [place] [address] the [facility] morning [place] and 1 tablet in the evening. Take with meals. aspirin Yes 81mg 81 mg, Univers chewable 710 Oral, ity of tablet 81 14:00: DAILY, [place] mg 00 First dose Medical on [facility] 12/29/21 at 0900, Until Discontinu ed, Routine sulfur 2021- No [id number] 5mL 5 mL, Unive rs hexafluorid 12-29 Intravenou i ty of e microsphr 13:45: 13:45 s, ONCE, 1 [place] (LUMASON) 00 :00 dose, On Medica l injection 5 [facility] mL 12/29/21 at 0845, Routine
physics faculty member approving Restricted medication : STEFANIE GORMAN enoxaparin Yes 40mg 40 mg, Unive rs (LOVENOX) 7-10 Subcutaneo ity of injection 13:00: us, Q24H, [place] 40 mg 00 First dose Medical on [facility] 12/29/21 at 0800, Until Discontinu ed, Routine Sliding Yes Subcutaneo Univ ers Scale 7-10 us, TID ity of Insulin - 13:00: MEALS+HS, [place] Lispro 00 First dose Medical (HumaLOG) + on [facility] Fsbg 12/29/21 at Testing 0800, Until Discontinu ed, Routine diazePAM 2021- No 10mg 10 mg, Univer s (VALIUM) 12-29 0710 Intravenou ity of injection 05:30: 04:40 s, ONCE, 1 [place] 10 mg 00 :00 dose, On Medical [facility] 12/29/21 at 0030, Routine diazePAM 2021- No 10mg 10 mg, Univer s (VALIUM) 7-10 07-10 Intravenou ity of injection 04:15: 03:17 s, ONCE, 1 [place] 10 mg 00 :00 dose, On Medical [facility] 12/28/21 Branch at 2315, Routine diazePAM 2021-0 Yes 5mg 5 mg, Univers (VALIUM) 7-10 Intravenou ity o f injection 5 03:45: s, QIDPRN, [place] mg 01 Starting Medical on [facility] 12/28/21 at 2245, Until Discontinu ed, Routine, Seizures, Agitation foLIC acid 2021-0 Yes 1mg 1 mg, Univer s (FOLATE) 7-10 Oral, ity of tablet 1 mg 03:45: DAILY, [place] 00 First dose Medical on [facility] 12/28/21 at 2245, Until Discontinu ed, Routine thiamine 2021-0 Yes 100mg 100 mg, Unive rs (VITAMIN 7-10 Oral, ity of B1) tablet 03:45: DAILY, [place] 100 mg 00 First dose Medical (after Branch last modificati on) on [facility] 12/28/21 at 2245, Until Discontinu ed, Routine glucagon 2021-0 Yes 1mg 1 mg, Univers (GLUCAGEN 7-10 Intramuscu ity of DIAGNOSTIC 03:42: [place], PRN, [place] KIT) 19 Starting Medical injection 1 on [facility] 12/28/21 at 2242, Until Discontinu ed, JACIEL, Blood Glucose < or = 70 mg/dL and patient is unable to swallow or has mental changes. dextrose 2021-0 Yes 250mL 250 mL, IV Un l[place]na 10% (D10W) 7-10 Infusion, ity of bolus 03:42: PRN - SEE [place] infusion 19 INSTRUCTIO Medic al 250 mL NS, Branch Administer over 60 Minutes, Other, If blood glucose is < or = 70 mg/dL and patient is unable to swallow or has mental status changes, Starting on [facility] 12/28/21 at 2242
If blood glucose [...] [place] mg 00 :00 dose, On Medical [facility] 12/28/21 Branch at 2230, Routine
Is the medication being used for status epilepticu s? No oxazepam Yes 15mg 15 mg, Univers (SERAX) 7-10 Oral, ity of capsule 15 00:28: Q4HPRN, [place] mg 20 Starting Medical on [facility] Branch 12/28/21 at 1928, Until Discontinu ed, Routine, Only while awake for DBP equal to or greater than 100, HR equal to or greater than 100. ondansetron Yes 4mg 4 mg, Slow Univers (ZOFRAN 7-10 IV Push, ity of (PF)) 00:23: Q6HPRN, [place] injection 4 47 Starting Medi yudy mg on [facility] Branch 12/28/21 at 1923, Until Discontinu ed, Routine, Nausea and Vomiting (N/V) acetaminoph Yes 650mg 650 mg, Un lorena en 7-10 Oral, ity of (TYLENOL) 00:23: Q6HPRN, [place] tablet 650 37 Starting Medic al mg on [facility] Branch 12/28/21 at 1923, Until Discontinu ed, Routine, Pain (scale 1-3), Temp > 38.5 C chlordiazeP 2021- No 25mg 25 mg, Uni vers OXIDE 12-28- Oral, ity of (LIBRIUM) 23:15: 23:24 ONCE, 1 [place] capsule 25 00 :00 dose, On Medic al mg [facility] 12/28/21 Branch at 1815, JACIEL NaCl 0.9% 2021- No 2000mL at 999 Uni vers (NS) bolus 12-28- mL/hr, ity of infusion 22:45: 23:18 2,000 mL, [place] 2,000 mL 00 :00 IV Medical Infusion, Branch ONCE, 1 dose, On 12/28/21 at 1745, JACIEL LORazepam 0 2021- [...] 20:31:31 116 mm[Hg] Univer sity of pressure [facility] Diastolic blood 2022-11-11 20:31:31 77 mm[Hg] [facility] Heart rate 2022-11-11 20:31:31 84 /min Universi ty of [place] [facility] Respiratory rate 2022-11-11 20:31:31 12 /min Univ ersity of [place] [facility] Oxygen saturation in 2022-11-11 20:31:31 90 /min University of Arterial blood by [place] [employer] yudy Pulse oximetry Branch Body temperature 2022-11-11 18:49:00 37.11 Theresa Univ ersity of [place] [facility] Body height 2022-11-11 18:49:00 160 cm Universi ty of [place] [facility] Body weight 2022-11-11 18:49:00 68.04 kg Universi ty [facility] [place] [facility] BMI 2022-11-11 18:49:00 26.57 kg/m2 Universi ty [facility] [place] [facility] Body temperature 2022-08-11 14:00:00 36.5 Theresa Univ ersity of [place] [facility] Systolic blood 2022-08-11 10:00:00 116 mm[Hg] Univer sity of pressure [place] [facility] Diastolic blood 2022-08-11 10:00:00 71 mm[Hg] Unive rsity of pressure [place] [facility] Heart rate 2022-08-11 10:00:00 70 /min Universi ty of [place] [facility] Respiratory rate 2022-08-11 10:00:00 16 /min Univ ersity of [place] [facility] Body weight 2022-08-11 10:00:00 65.499 kg Universi ty [facility] [place] [facility] BMI 2022-08-11 10:00:00 25.58 kg/m2 Universi ty of [place] [facility] Oxygen saturation in 2022-08-11 10:00:00 100 /min University of Arterial blood by [place] [employer] yudy Pulse oximetry Branch Body height [...] 98 /min University of Arterial blood by [place] [employer] yudy Pulse oximetry Branch Body temperature 2022-04-06 14:41:00 37 Theresa Univ ersity of [place] [facility] Body height 2022-04-06 14:41:00 160 cm Universi ty [facility] [place] [facility] Body weight 2022-04-06 14:41:00 63.504 kg Universi ty [facility] [place] [facility] BMI 2022-04-06 14:41:00 24.80 kg/m2 Universi ty [facility] [place] [facility] Systolic blood 2022-01-20 02:27:00 121 mm[Hg] Univer sity of pressure [place] [facility] Diastolic blood 2022-01-20 02:27:00 75 mm[Hg] Unive rsity of pressure [place] [facility] Heart rate 2022-01-20 02:27:00 79 /min Universi ty of [place] [facility] Respiratory rate 2022-01-20 02:27:00 12 /min Univ ersity of [place] [facility] Oxygen saturation in 2022-01-20 02:27:00 98 /min University of Arterial blood by [facility] Pulse oximetry Branch Body temperature 2022-01-19 22:19:00 36.44 Theresa Univ ersity of [place] [facility] Body weight 2022-01-19 22:19:00 60.328 kg Universi ty of [place] [facility] BMI 2022-01-19 22:19:00 23.56 kg/m2 Universi ty [facility] [place] [facility] Systolic blood 2021-12-30 20:52:00 134 mm[Hg] Univer sity of pressure [place] [facility] Diastolic blood 2021-12-30 20:52:00 76 mm[Hg] Unive rsity of pressure [place] [facility] Heart rate 2021-12-30 20:52:00 67 /min Universi ty of [place] [facility] Body temperature 2021-12-30 20:26:00 36.67 Theresa Univ ersity of [place] [facility] Oxygen saturation in 2021-12-30 20:26:00 99 /min University of Arterial blood by [facility] Pulse oximetry Branch Respiratory rate 2021-12-30 16:21:00 18 /min Univ ersity of [place] [facility] Body weight 2021-12-30 08:27:00 60.464 kg Universi ty [facility] [place] [facility] BMI 2021-12-30 08:27:00 23.61 kg/m2 [facility]i ty [facility] [place] [facility] Body height 2021-12-29 01:29:00 160 cm [facility] Procedures Procedure Date / Time Performing Clinician Source Performed MAGNESIUM 2022-11-11 19:05:00 Hemant Klein [facility] BASIC METABOLIC PANEL 2022-11-11 19:05:00 Hemant Klein [facility] (NA, K, CL, CO2, GLUCOSE, Medica l Branch BUN, CREATININE, CA) ETHANOL 2022-11-11 19:05:00 [facility]FF 2022-11-11 19:05:00 Jessica [facility] POCT GLUCOSE (AUTOMATED) 2022-08-11 13:36:00 Jessica Prado [facility] PHOSPHORUS 2022-08-11 10:35:00 Eve [facility] MAGNESIUM 2022-08-11 10:35:00 Eve [facility] AMMONIA, PLASMA 2022-08-11 10:35:00 Eve [facility] COMP. METABOLIC PANEL 2022-08-11 10:35:00 Eve [facility] ([id number]) [facility] CBC WITH DIFF 2022-08-11 10:35:00 [facility] POCT GLUCOSE (AUTOMATED) 2022-08-11 02:15:00 Jessica Prado Uni [facility] POCT GLUCOSE (AUTOMATED) 2022-08-10 23:10:00 OvJessica peralta [facility] POCT GLUCOSE (AUTOMATED) 2022-08-10 18:20:00 OvJessica peralta Uni [facility] POCT GLUCOSE (AUTOMATED) 2022-08-10 14:11:00 OvJessica peralta Uni [facility] POCT GLUCOSE (AUTOMATED) 2022-08-10 10:59:00 Rayray Driscoll [facility] COVID-19 (ID NOW RAPID 2022-08-10 07:17:00 Rayray Driscoll [facility] TESTING) [facility] Branch LAB ONLY COVID 2022-08-10 07:17:00 Rayray Driscoll [facility] HB ECG ROUTINE & RHYTHM 2022-08-10 06:03:48 Rayray Driscoll [facility] URINALYSIS 2022-08-10 05:46:00 [facility] URINE DRUG (IMMUNOASSAY) 2022-08-10 05:45:00 Rayray Driscoll [facility] SCREEN W/O REFLEX CREATINE KINASE 2022-08-10 05:16:00 [facility] LIPASE 2022-08-10 05:16:00 [facility] MAGNESIUM 2022-08-10 05:16:00 [facility] TROPONIN I 2022-08-10 05:16:00 [facility] COMP. METABOLIC PANEL 2022-08-10 05:16:00 Rayray Driscoll [facility] ([id number] Branch ETHANOL 2022-08-10 05:16:00 Rayray Driscoll [facility] CBC WITH DIFF 2022-08-10 05:16:00 [facility] N-TERMINAL PRO-BNP 2022-08-10 05:16:00 Rayray Driscoll [facility] CRITICAL CARE 2022-08-10 04:52:00 Rayray Driscoll [facility] XR CHEST 1 VW 2022-04-06 14:51:50 Diya Chowdhury [facility] LIPASE 2022-04-06 14:42:00 Diya Chowdhury [facility] TROPONIN I 2022-04-06 14:42:00 Diya Chowdhury [facility] COMP. METABOLIC PANEL 2022-04-06 14:42:00 Diya Chowdhury [facility] ([id number]) [facility] CBC WITH DIFF 2022-04-06 14:42:00 Diya Chowdhury [facility] PROTHROMBIN TIME / INR 2022-04-06 14:42:00 [facility] 2022-04-06 14:42:00 Diya Chowdhury [facility] THRLAS [facility] LACTIC ACID WHOLE BLOOD 2022-01-20 00:22:00 Leticia Hameed [facility] URINE DRUG (IMMUNOASSAY) 2022-01-19 23:10:00 Leticia Hameed [facility] COMPREHENSIVE RUST Medical [facility] [address] [facility] SCREEN URINALYSIS 2022-01-19 23:10:00 Leticia Hameed R[facility] TROPONIN I 2022-01-19 23:00:00 Letciia Hameed Ridd[facility] COMP. METABOLIC PANEL 2022-01-19 23:00:00 Leticia Hameed [facility] ([id number]) Medical Branch LITHIUM 2022-01-19 23:00:00 Leticia Hameed Riddhi [facility] ETHANOL 2022-01-19 23:00:00 Leticia Hameed Ridd[facility] CBC WITH DIFF 2022-01-19 23:00:00 Leticia Hameed [facility] COVID-19 (ID NOW RAPID 2022-01-19 23:00:00 Leticia Hameed [facility] TESTING) [facility] CT HEAD WO CONTRAST 2022-01-19 22:49:00 Leticia Hameed [facility] XR CHEST 1 VW 2022-01-19 22:41:00 Leticia Hameed [facility] POCT GLUCOSE (AUTOMATED) 2022-01-19 22:25:00 Leticia Hameed [facility] POCT GLUCOSE (AUTOMATED) 2021-12-30 21:55:00 Jessica Prado [facility] POCT GLUCOSE (AUTOMATED) 2021-12-30 16:21:00 Jessica Prado [facility] POCT GLUCOSE (AUTOMATED) 2021-12-30 12:30:00 Jessica Prado [facility] HEPATIC FUNCTION PANEL 2021-12-30 09:28:00 Maira Gaitan [facility] ([id number]) (ALB,T.PRO,BILI Medical Branch T,BU/BC,ALT,AST,ALK PHOS) POCT GLUCOSE (AUTOMATED) 2021-12-30 02:11:00 Eve [facility] [facility] POCT GLUCOSE (AUTOMATED) 2021-12-29 21:41:00 [facility] POCT GLUCOSE (AUTOMATED) 2021-12-29 16:37:00 Eve [facility] TRANSTHORACIC ECHO (TTE) 2021-12-29 13:05:00 Eve [facility] W/ CONTRAST Medical [facility] [address] POCT GLUCOSE (AUTOMATED) 2021-12-29 12:41:00 Eve [facility] TROPONIN I 2021-12-29 09:42:00 Eve [facility] TROPONIN I 2021-12-29 04:55:00 Eve [facility] CT HEAD WO CONTRAST 2021-12-28 21:18:22 Pia Renteria [facility] AMMONIA, PLASMA 2021-12-28 21:00:00 Pia Renteria [facility] COVID-19 (ID NOW RAPID 2021-12-28 20:42:00 Pia Renteria [facility] TESTING) [facility] LAB ONLY COVID 2021-12-28 20:42:00 Pia Renteria [facility] INTERPRETATION [facility] URINE DRUG (IMMUNOASSAY) 2021-12-28 20:42:00 Pia Renteria [facility] - COMPREHENSIVE DRUG [facility] SCREEN W/O REFLEX URINALYSIS 2021-12-28 20:40:00 Pia Renteria [facility] N-TERMINAL PRO-BNP 2021-12-28 20:40:00 Pia Renteria [facility] TROPONIN I 2021-12-28 20:40:00 Pia Renteria [facility] THYROID STIMULATING 2021-12-28 20:40:00 Jessica Prado [facility] HORMONE [facility] COMP. METABOLIC PANEL 2021-12-28 20:40:00 Pia Renteria [facility] ([id number]) [facility] LIPID PANEL (05053)(TOTAL 2021-12-28 20:40:00 Demetrius Langford [facility] CHOLESTEROL, [facility] TRIGLYCERIDES, HDL) ETHANOL 2021-12-28 20:40:00 Demetrius Langford o f [facility] CBC WITH DIFF 2021-12-28 20:40:00 Dexter [facility] GLYCOSYLATED HEMOGLOBIN 2021-12-28 20:40:00 Jessica Prado [facility] (A1C) [facility] PROTHROMBIN TIME / INR 2021-12-28 [facility]:40[facility] 2021-12-28 20:16:00 [facility] & RHYTHM 2021-12-28 20:04:59 Pia Renteria [facility] Encounters Start End Encounter Admission Attending Care Care Encounter Source Date/Time Date/Time Type Type Clinicians Facility Department ID 2021-09-17 Inpatient [facility] [id number] [facility] 16:45:00 35 2020-06-06 Inpatient [facility] [id number] [facility] 16:07:00 05 2020-06-06 Inpatient [facility] [id number] [facility] 06:20:00 77 2020-06-05 Inpatient [facility] [id number] [facility] 19:35:00 25 2020-05-23 Inpatient [facility] [id number] [facility] 19:53:00 39 2020-05-23 Inpatient [facility] [id number] [facility] 19:53:00 39 2022-11-11 2022-11-11 Emergency X JESSICA [facility] ERT [id number] [facility] 13:50:00 16:07:00 HEMANT rahman [facility] 2022-11-11 2022-11-11 Emergency Jessica MOYULIA [id number] [facility] 13:50:00 16:07:00 Hemant OTTO 350.1.13.10 i [facility] 4.2.7.2.686 [facility] [id number] [place] [address] [address] 2022-10-14 2022-10-14 Emergency [facility] [id number] [facility] 20:59:00 20:59:00 66 2022-10-14 2022-10-14 Emergency Emergency Clareuwemily, [facility] [id number] [facility] 20:59:00 20:59:00 Astridkchloe 66 2022-08-09 2022-08-11 Outpatient X CHIDINURA [facility] MARGO [id number] Univers 22:59:00 13:02:00 JESSICA itlou [facility] 2022-08-09 2022-08-11 Emergency DriscollRayray [facility] 1.2.840. 114 [id number] Univers 22:59:00 13:02:00 ChidinuraJessica 350.1.13.10 ity Oswald Tolliver 4.2.7.2.686 [facility] [id number] [address] 2022-04-06 2022-04-06 Emergency [email or web address] ERT [id number] Univers 09:38:00 11:42:00 [facility] 2022-04-06 2022-04-06 [facility] 1.2.840.114 [id number] Univers 09:38:00 11:42:00 Diya OTTO 350.1.13.10 i Mila 4.2.7.2.686 [facility] [id number] [address] 2022-03-07 2022-03-07 Emergency [facility] [id number] [facility] 12:38:00 12:38:00 74 2022-03-07 2022-03-07 Emergency Emergency Polo Fidel [facility] [id number] [facility] 12:38:00 12:38:00 74 2022-01-19 2022-01-19 Emergency X NNEKA [facility] ERT [id number] Univers 17:18:00 22:00:00 [facility] 2022-01-19 2022-01-19 Emergency Leticia Hameed [facility] 1.2.840. 114 [id number] Univers 17:18:00 22:00:00 Jj Yarbrough 350.1.13.10 ity of [place] 4.2.7.2.686 [facility] [id number] [facility] [address] 2021-12-31 2021-12-31 Transition EDMUNDO Portillo 1.2.840.114 [id number] Univers 00:00:00 00:00:00 of Care Faye WILKSY 350.1.13.10 ity of [place] 4.2.7.2.686 [facility] [id number] [facility] [address] 2021-12-28 2021-12-30 Inpatient X EVE [facility] [id number] Univers 14:53:00 17:42:00 JESSICA ity of [facility] 2021-12-28 2021-12-30 [facility] Pia Renteria [facility] 1.2.840. 114 [id number] Univers 14:53:00 17:42:00 Encounter Ramírez Pradojessica OTTO 350.1.13.10 ity of [facility] 4.2.7.2.686 [facility] [id number] [facility] [address] 2021-09-17 2021-09-17 Emergency [facility] [id number] [facility] 16:47:00 16:47:00 35 2020-06-06 2020-06-06 Emergency [facility] [id number] [facility] 16:07:00 16:07:00 05 Results Test Description Test Time Test Comments Results Result [facility] e Comments ETHANOL 2022-11-11 ALCOHOL<10mg/dL0 Universi ty of 19:45:56 11/11/2022 2:45 [facility]10 Oswltxqx49-859 Toxic>100 Depression of [employer]INTE[employer] MECHANIC>400 Fatalities Reported BASIC METABOLIC PANEL (NA, K, CL, CO2, GLUCOSE, BUN, 2022-10 19:41:47 CREATININE, [place]) Test Item Value Reference Range Interpretation Comme nts NA (test code = 4474563303) 138 mmol/L 135-145 K (test code = 6832376434) 4.8 mmol/L 3.5-5.0 CL (test code = 9678009729) 103 mmol/L 98-108 CO2 TOTAL (test code = 0102413315) 26 mmol/L 23-31 AGAP (test code = 3960182314) 9 2-16 BUN (test code = 1347417389) 17 mg/dL 7-23 GLUCOSE (test code = 9130733064) 219 mg/dL 70-110 H CREATININE (test code = 0.72 mg/dL 0.60-1.25 9770503222) CALCIUM (test code = 3595734741) 10.0 mg/dL 8.6-10.6 eGFR (test code = 0902715554) 114.6 mL/min/1.73m2 JUAN ALBERTO (test code = [...] tests). Lab Interpretation (test code = Abnormal 72716-9) [facility]2023-05-23 19:41:47 Test Item Value Reference Range Interpretation Comments MAGNESIUM (test code = 1648536205) 1.8 mg/dL 1.7-2.4 Lab Interpretation (test code = Normal 76192-0) [facility] WITH [id number] 19:25:26 Test Item Value Reference Range Interpretation [...] RDW-SD (test code = 46.0 fL 38.5-51.6 36067-9) RDW-CV (test code = 13.5 % 12.1-15.4 788-0) PLT (test code = 237 See_Comment [Automated 777-3) message] The sy stem which generated this result transmitted reference range : 150 - 328 10*3/ ?L. The reference r elba was not used to interpret this result as normal/abnormal . MPV (test code = 8.9 fL 9.8-13.0 L 18112-6) NRBC/100 WBC (test 0.0 See_Comment [Automat ed code = 0835836629) message] The system which generated this result transmitted reference range : 0.0 - 10.0 /100 WBCs. The refer ence range was not u sed to interpret th is result as normal/abnormal . NRBC x10^3 (test code See_Comment [Auto mated = 4010176048) message] The s ystem which generated this result transmitted reference range : 10*3/?L. The reference range was not used to interpret this result as normal/abnormal . GRAN MAT (NEUT) % 71.2 % (test code = 770-8) IMM GRAN % (test code 0.30 % = 4812166239) LYMPH % (test code = 18.2 % 736-9) MONO % (test code = 8.4 % 5905-5) EOS % (test code = 1.0 % 713-8) BASO % (test code = 0.9 % 706-2) GRAN MAT x10^3(ANC) 4.86 10*3/uL 1.99-6.95 (test code = 4305240660) IMM GRAN x10^3 (test 0.00-0.06 code = 7063117503) LYMPH x10^3 (test code 1.24 10*3/uL 1.09-3.23 = 731-0) MONO x10^3 (test code 0.57 10*3/uL 0.36-1.02 = 742-7) EOS x10^3 (test code = 0.07 10*3/uL 0.06-0.53 711-2) BASO x10^3 (test code 0.06 10*3/uL 0.01-0.09 = 704-7) Lab Interpretation Abnormal (test code = 64421-1) [facility] Rfl[facility] Cult/[id number] 22:20:00 Test Item Value Reference Range Interpretation Comments Color,Urine (test code = UCOL) Yellow Yellow Clarity,Urine (test code = Clear Clear UCLAR) Ph, Urine (test code = UPH) 7.0 5.0-9.0 N Specific [place],Urine (test 1.020 1.005-1.030 N code = USG) [...] Negative mg/dL Negative code = ULEU) Drug Screen,[id number] 22:20:00 Test Item Value Reference Range Interpretation [...] code = UPROP) Complete Blood Count Auto [id number] 21:21:00 Test Item Value Reference Range Interpretation [...] code = NRBCP) 0 % Comprehensive Metabolic [id number] 21:21:00 Test Item Value Reference Range Interpretation [...] race coefficient. Additional information can be found at:71-69-6549_g cb_ egfr_summary_fl evelin 5.pdf (kidney.o rg) [Automated [...] 46-116 H (test code = ALP) Ethanol [id number] 21:21:00 Test Item Value Reference Range Interpretation Comments Ethanol (test code < 3 mg/dL The pharm acological = ETOH) response to blo od alcohol levels mayvary from individual to i ndividual. The fatal surinder ntrationhas been reported t o be >400mg/dL. POCT GLUCOSE (AUTOMATED)2022-08-11 13:40:35 Test Item Value Reference Range Interpretation Comments POCT GLU (test code = 2513872863) 121 mg/dL 70-110 H Lab Interpretation (test code = Abnormal 77788-7) [facility] GLUCOSE (AUTOMATED)2022-08-11 02:18:58 Test Item Value Reference Range Interpretation Comments POCT GLU (test code = 9792798284) 183 mg/dL 70-110 H Lab Interpretation (test code = Abnormal 87403-3) [facility] GLUCOSE (AUTOMATED)2022-08-10 23:16:11 Test Item Value Reference Range Interpretation Comments POCT GLU (test code = 7977432124) 176 mg/dL 70-110 H Lab Interpretation (test code = Abnormal 78075-4) [facility] GLUCOSE (AUTOMATED)2022-08-10 18:22:51 Test Item Value Reference Range Interpretation Comments POCT GLU (test code = 5473124260) 165 mg/dL 70-110 H Lab Interpretation (test code = Abnormal 58503-5) [facility] GLUCOSE (AUTOMATED)2022-08-10 14:18:05 Test Item Value Reference Range Interpretation Comments POCT GLU (test code = 6410871092) 138 mg/dL 70-110 H Lab Interpretation (test code = Abnormal 28557-8) [facility] GLUCOSE (AUTOMATED)2022-08-10 11:01:21 Test Item Value Reference Range Interpretation Comments POCT GLU (test code = 3120911330) 143 mg/dL 70-110 H Lab Interpretation (test code = Abnormal 65701-8) [facility] [id number] 06:51:18 Test Item Value Reference Range Interpretation Comments TROPONIN I (test code = 0.008 ng/mL <=0.034 3100956164) JUAN ALBERTO (test code = JUAN ALBERTO) [...] biotin. Lab Interpretation Normal (test code = 36325-7) [facility] [id number] 06:47:37 Test Item Value Reference Range Interpretation Comments NT-proBNP (test code = 37 pg/mL <=125 1204461459) JUAN ALBERTO (test code = JUAN ALBERTO) Biotin has been reported to cause a negative bias, interpret results relative to patient's use of biotin. Lab Interpretation (test Normal code = 34214-6) [facility] 06:25:52 ALCOHOL<10mg/dL08/10/2022 12:25 AM [facility]<10 Bgvgzghr11-988 Toxic>100 Depression of [employer]INTE[employer] MECHANIC>400 Fatalities ReportedUnMemorial [facility] HospitalCOM. METABOLIC PANEL (85055) 2022-08-10 06:19:15 Test Item Value Reference Range Interpretation Comments NA (test code = 135 mmol/L 135-145 7377431764) K (test code = 4.3 mmol/L 3.5-5.0 6925402790) CL (test code = 98 mmol/L 98-108 7587016604) CO2 TOTAL (test code = 30 mmol/L 23-31 1583323718) AGAP (test code = 7 2-16 6201661779) BUN (test code = 11 mg/dL 7-23 5066954584) GLUCOSE (test code = 153 mg/dL 70-110 H 3421206496) CREATININE (test code = 0.77 mg/dL 0.60-1.25 4785258045) TOTAL BILI (test code = 0.9 mg/dL 0.1-1.0 7104471308) CALCIUM (test code = 10.0 mg/dL 8.6-10.6 3080521639) T PROTEIN (test code = 7.7 g/dL 6.3-8.2 3520880046) ALBUMIN (test code = 4.6 g/dL 3.5-5.0 9311146078) ALK PHOS (test code = 92 U/L 34-122 0726510560) ALTv (test code = 35 U/L 5-50 1742-6) AST(SGOT) (test code = 42 U/L 13-40 H 7403058549) eGFR (test code = 106.1 mL/min/1.73m2 0901871384) JUAN ALBERTO (test code = JUAN ALBERTO) [...] tests). Lab Interpretation Abnormal (test code = 90333-7) [facility]20[facility]-19 06:19:15 Test Item Value Reference Range Interpretation Comments MAGNESIUM (test code = 9036386518) 2.2 mg/dL 1.7-2.4 Lab Interpretation (test code = Normal 92825-7) [facility]23-[facility] 06:18:55 Test Item Value Reference Range Interpretation Comments LIPASE (test code = 2290365141) 18 U/L 0-220 Lab Interpretation (test code = Normal 74089-7) [facility] HospitalCREATINE [id number] 06:18:55 Test Item Value Reference Range Interpretation Comments CK (test code = 2895330872) 174 U/L 33-194 Lab Interpretation (test code = Normal 27738-3) [facility] WITH [id number] 06:02:35 Test Item Value Reference Range Interpretation Comments WBC (test code = 7.50 See_Comment [Automated 9378-2) message] The sy stem which generated this [...] RDW-SD (test code = 50.2 fL 38.5-51.6 10980-1) RDW-CV (test code = 14.3 % 12.1-15.4 788-0) PLT (test code = 241 See_Comment [Automated 777-3) message] The sy stem which generated this result transmitted reference range : 150 - 328 10*3/ ?L. The reference r elba was not used to interpret this result as normal/abnormal . MPV (test code = 8.6 fL 9.8-13.0 L 42446-1) NRBC/100 WBC (test 0.0 See_Comment [Automat ed code = 6572220239) message] The system which generated this result transmitted reference range : 0.0 - 10.0 /100 WBCs. The refer ence range was not u sed to interpret th is result as normal/abnormal . NRBC x10^3 (test code See_Comment [Auto mated = 0906909543) message] The s ystem which generated this result transmitted reference range : 10*3/?L. The reference range was not used to interpret this result as normal/abnormal . GRAN MAT (NEUT) % 63.9 % (test code = 770-8) IMM GRAN % (test code 0.50 % = 7677194509) LYMPH % (test code = 17.6 % 736-9) MONO % (test code = 16.5 % 5905-5) EOS % (test code = 0.7 % 713-8) BASO % (test code = 0.8 % 706-2) GRAN MAT x10^3(ANC) 4.79 10*3/uL 1.99-6.95 (test code = 4015542984) IMM GRAN x10^3 (test 0.04 10*3/uL 0.00-0.06 code = 4375570996) LYMPH x10^3 (test code 1.32 10*3/uL 1.09-3.23 = 731-0) MONO x10^3 (test code 1.24 10*3/uL 0.36-1.02 H = 742-7) EOS x10^3 (test code = 0.05 10*3/uL 0.06-0.53 L 711-2) BASO x10^3 (test code 0.06 10*3/uL 0.01-0.09 = 704-7) Lab Interpretation Abnormal (test code = 29817-3) [facility] [id number] 15:15:32 Test Item Value Reference Interpretation Comments Range TROPONIN I (test 0.007 ng/mL See_Comment [Automated code = 9146436029) message] The system which generated this result [...] biotin. Lab Interpretation Normal (test code = 89534-8) [facility] HospitalaPTT2022-[facility]-16 15:08:29 Test Item Value Reference Range Interpretation Comments APTT Patient (test See_Comment [Automat ed code = 3173-2) message] The system which generated this result transmitted reference range : 23 - 38 Seconds . The reference range was not used to interpr et this result as normal/abnormal . JUAN ALBERTO (test code = JUAN ALBERTO) The [facility] patient population mean normal value for aPTT is 30 seconds. Lab Interpretation Normal (test code = 40349-9) [facility] HospitalPROTHROMBIN TIME / [id number] 15:06:28 Test Item Value Reference Range Interpretation [...] tions. Lab Interpretation (test Normal code = 46480-3) [facility]COMP. METABOLIC PANEL (10579)2022-04-06 15:03:31 Test Item Value Reference Range Interpretation Comments NA (test code = 136 mmol/L 135-145 4780764221) K (test code = 5.0 mmol/L 3.5-5 4046128739) CL (test code = 104 mmol/L 98-108 9664593089) CO2 TOTAL (test code = 21 mmol/L 23-31 L 1245988749) AGAP (test code = 2-16 3347362005) BUN (test code = 11 mg/dL 7-23 6386746834) GLUCOSE (test code = 162 mg/dL 70-110 H 4517108118) CREATININE (test code = 0.52 mg/dL 0.6-1.25 L 7586136821) TOTAL BILI (test code = 1.0 mg/dL 0.1-1.1 3824043191) CALCIUM (test code = 9.3 mg/dL 8.6-10.6 8360955977) T PROTEIN (test code = 7.4 g/dL 6.3-8.2 5849634205) ALBUMIN (test code = 4.4 g/dL 3.5-5 6164400157) ALK PHOS (test code = 134 U/L 34-122 H 4452275644) ALTv (test code = 17 U/L 550 2-6) AST(SGOT) (test code = 38 U/L 13-40 3709366032) eGFR (test code = mL/min/1.73m2 8466527382) JUAN ALBERTO (test code = JUAN ALBERTO) [...] tests). Lab Interpretation Abnormal (test code = 86663-5) [facility] HospitalLIP[facility], [id number] 15:03:31 Test Item Value Reference Range Interpretation Comments LIPASE (test code = 7588637087) 29 U/L 0-220 Lab Interpretation (test code = Normal 96494-1) [facility] WITH [id number] 14:51:49 Test Item Value Reference Range Interpretation [...] RDW-SD (test code = 45.9 fL 38.5-51.6 74694-2) RDW-CV (test code = 13.3 % 12.1-15.4 788-0) PLT (test code = See_Comment [Automated 777-3) message] The sy stem which generated this result transmitted reference range : 150 - 328 10*3/ ?L. The reference r elba was not used to interpret this result as normal/abnormal . MPV (test code = 8.4 fL 9.8-13 L 88562-7) NRBC/100 WBC (test See_Comment [Automat ed code = 9797987167) message] The system which generated this result transmitted reference range : 0.0 - 10.0 /100 WBCs. The refer ence range was not u sed to interpret th is result as normal/abnormal . NRBC x10^3 (test code See_Comment [Auto mated = 6158425402) message] The s ystem which generated this result transmitted reference range : 10*3/?L. The reference range was not used to interpret this result as normal/abnormal . GRAN MAT (NEUT) % 63.0 % (test code = 770-8) IMM GRAN % (test code 0.50 % = 6189226414) LYMPH % (test code = 25.2 % 736-9) MONO % (test code = 9.8 % 5905-5) EOS % (test code = 0.3 % 713-8) BASO % (test code = 1.2 % 706-2) GRAN MAT x10^3(ANC) 3.73 10*3/uL 1.99-6.95 (test code = 3466797229) IMM GRAN x10^3 (test 0.03 10*3/uL 0-0.06 code = 0795554904) LYMPH x10^3 (test code 1.49 10*3/uL 1.09-3.23 = 731-0) MONO x10^3 (test code 0.58 10*3/uL 0.36-1.02 = 742-7) EOS x10^3 (test code = 0.06-0.53 L 711-2) BASO x10^3 (test code 0.07 10*3/uL 0.01-0.09 = 704-7) Lab Interpretation Abnormal (test code = 69749-1) [facility], Urinalysis Rflx Cult/[id number] 13:53:00 Test Item Value Reference Range Interpretation Comments Color,Urine (test code = UCOL) Yellow Yellow Clarity,Urine (test code = Cloudy Clear A UCLAR) Ph, Urine (test code = UPH) 7.5 5.0-9.0 N Specific [place],Urine (test 1.025 1.005-1.030 N code = USG) [...] mg/dL Negative code = ULEU) UF REFLEXDrug Screen,[id number] 13:53:00 Test Item Value Reference Range Interpretation [...] code = UPROP) Complete Blood Count Auto [id number] 12:58:00 Test Item Value Reference Range Interpretation [...] = NRBCP) 0 % Coronavirus PCR, COVID19 [id number] 12:58:00 Test Item Value Reference Range Interpretation Comments Coronavirus PCR, COVID19 Rapid (test code = SARSCOV2) Coronavirus PCR, COVID19 Reference Range: Rapid (test code = Negative BIRIMVQ59.1) SARS-CoV-2 PCR Result: Negative by RT-PCR (test code = SARS-CoV-2 PCR Result:) COVID-19 Status: AsymptomaticComprehensive Metabolic [id number] 12:58:00 Test Item Value Reference Range Interpretation [...] 144 U/L 46-116 H = ALP) Ethanol [id number] 12:58:00 Test Item Value Reference Range Interpretation Comments Ethanol (test code < 3 mg/dL The pharm acological = ETOH) response to blo od alcohol levels mayvary from individual to i ndividual. The fatal surinder ntrationhas been reported t o be >400mg/dL. [id number] 01:47:56 Test Item Value Reference Range Interpretation Comments [place] (test code = 0.7 mmol/L 0.6-1.2 0892034162) JUAN ALBERTO (test code = JUAN ALBERTO) Toxic Range: ? Greater than 1.2 mmol/L Lab Interpretation (test Normal code = 14521-6) [facility] [id number] 00:26:53 Test Item Value Reference Interpretation Comments Range TROPONIN I (test 0.002 ng/mL See_Comment [Automated code = 7937603516) message] The system which generated this result [...] biotin. 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 METABOLIC PANEL (88262) 2022-01-20 00:16:16 Test Item Value Reference Range Interpretation Comments NA (test code = 137 mmol/L 135-145 3420869012) K (test code = 4.5 mmol/L 3.5-5 6066414553) CL (test code = 103 mmol/L 98-108 2160122367) CO2 TOTAL (test code = 26 mmol/L 23-31 0363031872) AGAP (test code = 2-16 0572058476) BUN (test code = 10 mg/dL 7-23 1367624159) GLUCOSE (test code = 121 mg/dL 70-110 H 0848903091) CREATININE (test code = 0.65 mg/dL 0.6-1.25 1591897668) TOTAL BILI (test code = 0.8 mg/dL 0.1-1.3 3477691803) CALCIUM (test code = 11.4 mg/dL 8.6-10.6 H 5992922768) T PROTEIN (test code = 7.2 g/dL 6.3-8.2 3318257884) ALBUMIN (test code = 4.6 g/dL 3.5-5 7917439398) ALK PHOS (test code = 112 U/L 34-122 3156460524) ALTv (test code = 19 U/L 5-50 1742-6) AST(SGOT) (test code = 26 U/L 13-40 2654637197) eGFR (test code = mL/min/1.73m2 1253558621) JUAN ALBERTO (test code = JUAN ALBERTO) [...] tests). Lab Interpretation Abnormal (test code = 45917-7) [facility] WITH [id number] 23:43:54 Test Item Value Reference Range Interpretation Comments WBC (test code = See_Comment [Automated 9927-2) message] The sy stem which generated this result transmitted reference range : 4.20 - 10.70 10*3/?L. The reference range was not used to interpret this result as normal/abnormal . RBC (test code = See_Comment [Automated 683-8) message] The sy stem which generated this [...] RDW-SD (test code = 44.0 fL 38.5-51.6 45340-6) RDW-CV (test code = 12.6 % 12.1-15.4 788-0) PLT (test code = See_Comment [Automated 777-3) message] The sy stem which generated this result transmitted reference range : 150 - 328 10*3/ ?L. The reference r elba was not used to interpret this result as normal/abnormal . MPV (test code = 9.1 fL 9.8-13 L 49435-3) NRBC/100 WBC (test See_Comment [Automat ed code = 9574409226) message] The system which generated this result transmitted reference range : 0.0 - 10.0 /100 WBCs. The refer ence range was not u sed to interpret th is result as normal/abnormal . NRBC x10^3 (test code See_Comment [Auto mated = 8143227709) message] The s ystem which generated this result transmitted reference range : 10*3/?L. The reference range was not used to interpret this result as normal/abnormal . GRAN MAT (NEUT) % 69.8 % (test code = 770-8) IMM GRAN % (test code 0.40 % = 7631808876) LYMPH % (test code = 18.0 % 736-9) MONO % (test code = 10.9 % 5905-5) EOS % (test code = 0.1 % 713-8) BASO % (test code = 0.8 % 706-2) GRAN MAT x10^3(ANC) 5.58 10*3/uL 1.99-6.95 (test code = 6064226290) IMM GRAN x10^3 (test 0.03 10*3/uL 0-0.06 code = 6620889755) LYMPH x10^3 (test code 1.44 10*3/uL 1.09-3.23 = 731-0) MONO x10^3 (test code 0.87 10*3/uL 0.36-1.02 = 742-7) EOS x10^3 (test code = 0.06-0.53 L 711-2) BASO x10^3 (test code 0.06 10*3/uL 0.01-0.09 = 704-7) Lab Interpretation Abnormal (test code = 46179-4) [facility] GLUCOSE (AUTOMATED)2022-01-19 22:27:41 Test Item Value Reference Range Interpretation Comments POCT GLU (test code = 4834617672) 123 mg/dL 70-110 H Lab Interpretation (test code = Abnormal 40592-1) [facility] GLUCOSE (AUTOMATED)2021-12-30 22:08:16 Test Item Value Reference Range Interpretation Comments POCT GLU (test code = 5790553109) 167 mg/dL 70-110 H Lab Interpretation (test code = Abnormal 87721-6) [facility] GLUCOSE (AUTOMATED)2021-12-30 16:50:40 Test Item Value Reference Range Interpretation Comments POCT GLU (test code = 9278513450) 154 mg/dL 70-110 H Lab Interpretation (test code = Abnormal 77839-4) [facility] GLUCOSE (AUTOMATED)2021-12-30 12:38:43 Test Item Value Reference Range Interpretation Comments POCT GLU (test code = 3627799261) 164 mg/dL 70-110 H Lab Interpretation (test code = Abnormal 50633-2) [facility] GLUCOSE (AUTOMATED)2021-12-30 02:14:58 Test Item Value Reference Range Interpretation Comments POCT GLU (test code = 5316917913) 220 mg/dL 70-110 H Lab Interpretation (test code = Abnormal 35834-5) [facility] GLUCOSE (AUTOMATED)2021-12-29 21:50:02 Test Item Value Reference Range Interpretation Comments POCT GLU (test code = 4100624398) 191 mg/dL 70-110 H Lab Interpretation (test code = Abnormal 84903-6) [facility] 20:15:01 Test Item Value Reference Range Interpretation Comments POCT GLU (test code = 7889517266) 163 mg/dL 70-110 H Lab Interpretation (test code = Abnormal 32171-1) [facility]2021-12-29 19:12:22 Test Item Value Reference Range Interpretation Comments Height (test code = in 1342671417) Weight (test code = lbs 4464732240) Systolic BP (test code = mmHg 5588936453) Diastolic BP (test code mmHg = 0607217394) Heart Rate (test code = bpm 8075128139) BSA (test code = 1.62 m2 6188434538) Ao root annulus (test 2.45 cm code = 1350912937) Ao root diam (test code 2.45 cm = 0681639312) Aortic root (test code = 2.45 cm 6966320305) ACS (test code = 1.66 cm 3474543473) LA size (test code = 3.2 cm 4646168587) LVOT diameter (test code 1.95 cm = 8674792653) LVIDD (test code = 3.60 cm 6945269901) IVS (test code = 0.94 cm 3497366245) Interventricular Septum 0.94 cm Diastolic Thickness by 2D (test code = 4716358) LVPWD (test code = 0.80 cm 3662522647) PW (test code = 0.80 cm 0.6-1.8 3715730555) EF(Teich) (test code = 52.80 % 3428142354) LVIDS (test code = 2.60 cm 1615728887) FS (test code = 27 % 6828754119) EF - 2D (test code = 52.80 % 65008803) LAV(MOD-sp4) (test code 16.80 mL = 4559474371) MV Peak E Cj (test code 46.1 cm/s = 1804736558) E wave decelartion time 0.31 s (test code = 2629586739) MV Peak A Cj (test code 58.1 cm/s = 3623459705) E/A ratio (test code = ratio 1244651637) MV E/e' septal (test 5.7 cm/s code = 8951553150) Tapse (test code = 1.60 cm 2006698180) LVOT stroke volume (test 52.10 cm3 code = 6934580112) LVOT peak cj (test code 110.6 cm/s = 0827550404) LVOT mn grad (test code mmHg = 5175119060) AV LVOT peak gradient mmHg (test code = 0260375365) LVOT peak VTI (test code 17.4 cm = 5890116522) LV V1 mean (test code = 66.10 cm/s 6924547275) Aortic valve mean 73.0 cm/s velocity (test code = 2343112655) Ao peak cj (test code = 124.6 cm/s 6378211441) Ao VTI (test code = 18.6 cm 8681459892) AV area by cont VTI 2.8 cm2 (test code = 9762724997) AV area peak cj (test 2.7 cm2 code = 6459451979) Ao max PG (test code = 6.20 mm[Hg] 2236023961) AV peak gradient (test mmHg code = 7825182146) AV valve area (test code 2.80 cm2 = 5140595094) AV mean gradient (test mmHg code = 3027686671) Radiology Study observation (narrative) (test code = 34505-4) JUAN ALBERTO (test code = JUAN ALBERTO) [...] mL of Lumason ultrasound enhancing agent used. [facility]21-[facility]29 12:50:31 Test Item Value Reference Range Interpretation Comments POCT GLU (test code = 0663825922) 141 mg/dL 70-110 H Lab Interpretation (test code = Abnormal 08321-1) [facility]Trop[facility] [id number] 10:38:31 Test Item Value Reference Interpretation Comments Range TROPONIN I (test 0.003 ng/mL See_Comment [Automated code = 4408132060) message] The system which generated this result [...] biotin. Lab Interpretation Normal (test code = 90332-3) [facility] HospitalLIP[facility] PANEL (18736)(TOTAL CHOLESTEROL, TRIGLYCERIDES, HDL)2021-12-29 05:56:47 Test Item Value Reference Range Interpretation Comments CHOL (test code = 168 mg/dL 120-200 7989344127) HDL (test code = 102 mg/dL See_Comment [Automated message] 9810280702) The system [employer] generated this result transmit naomie reference range : >=40. The refer ence range was not u sed to interpret th is result as normal/abnormal . HDLC RATIO (test code = See_Comment [Au tomated message] 6825653591) The system [employer] generated this result transmit naomie reference range : <=5.0. The refe rence range was not u sed to interpret th is result as normal/abnormal . TRIG (test code = 55 mg/dL 30-170 8365904985) LDL CHOL (test code = 55 mg/dL See_Comment [Auto mated message] 68534-3) The system [employer] generated this result transmit naomie reference range : <=160. The refe rence range was not u sed to interpret th is result as normal/abnormal . VLDL (test code = 11 mg/dL 5-60 2422125912) Lab Interpretation (test Normal code = 35997-7) [facility] HospitalThyroid Stimulating Hormone (TSH)2021-12-29 05:40:29 Test Item Value Reference Range Interpretation Comments TSH (test code = See_Comment Biotin has been 2712272881) reported to cau se a negative bias, interpret resul ts relative to sebastien walsh's use of biotin. [Automated mess age] The system [employer] generated this result transmitted ref erence range: 0.45 - 4 .70 mIU/L. The refe rence range was not u sed to interpret this result as normal/abnor mal. Lab Interpretation (test Normal code = 32039-5) [facility]Troponin [id number] 05:34:29 Test Item Value Reference Interpretation Comments Range TROPONIN I (test 0.006 ng/mL See_Comment [Automated code = 0934068476) message] The system which generated this result [...] biotin. Lab Interpretation Normal (test code = 53741-9) [facility] HospitalETHANOL2022-[facility]-10 04:43:01 ALCOHOL<10mg/dL12/28/2021 11:43 PM [facility]ORYToxic Greater than or equal to 80 mg/dL. NOTE: Whole blood values are approximately 10% to 15% lower than serum and plasma.[facility] HospitalGlycosylated Hemoglobin (A1C)2021-12-29 01:51:44 Test Item Value Reference Range Interpretation Comments HGB A1C (test code = 6.5 % 4-5.7 H 4548-4) JUAN ALBERTO (test code = JUAN ALBERTO) Reference RangesNormal: <5.7%Prediabetes: 5.7 - 6.4%Diabetes: > 6.5% Lab Interpretation (test Abnormal code = 32438-0) [facility] HospitalTROPONIN [id number] 21:26:50 Test Item Value Reference Interpretation Comments Range TROPONIN I (test 0.002 ng/mL See_Comment [Automated code = 3772625454) message] The system which generated this result [...] biotin. Lab Interpretation Normal (test code = 98068-4) [facility] HospitalN-TERMINAL [id number] 21:23:29 Test Item Value Reference Range Interpretation Comments NT-proBNP (test code 41 pg/mL See_Comment [Autom ated = 4834154960) message] The system which generated this result transmitted reference range : <=125. The reference range was not used to interpret this result as normal/abnormal . JUAN ALBERTO (test code = JUAN ALBERTO) Biotin has been reported to cause a negative bias, interpret results relative to patient's use of biotin. Lab Interpretation Normal (test code = 75371-1) [facility] HospitalAMMONIA, [id number] 21:20:38 Test Item Value Reference Range Interpretation Comments AMMONIA (test code = 9-33 L Slight hemolysis 4565028198) Lab Interpretation (test Abnormal code = 24218-1) [facility]. METABOLIC PANEL (54943)2021-12-28 21:08:48 Test Item Value Reference Range Interpretation Comments NA (test code = 137 mmol/L 135-145 1812371148) K (test code = 4.5 mmol/L 3.5-5 6286472736) CL (test code = 97 mmol/L 98-108 L 2931027348) CO2 TOTAL (test code = 29 mmol/L 23-31 4910921471) AGAP (test code = 2-16 6988324283) BUN (test code = 10 mg/dL 7-23 8112489454) GLUCOSE (test code = 188 mg/dL 70-110 H 4786880460) CREATININE (test code = 0.58 mg/dL 0.6-1.25 L 0467822404) TOTAL BILI (test code = 0.8 mg/dL 0.1-1.6 5627181652) CALCIUM (test code = 10.5 mg/dL 8.6-10.6 1822118937) T PROTEIN (test code = 7.6 g/dL 6.3-8.2 3339856653) ALBUMIN (test code = 4.5 g/dL 3.5-5 1093033005) ALK PHOS (test code = 107 U/L 34-122 9265983457) ALTv (test code = 66 U/L 5-50 H 1742-6) AST(SGOT) (test code = 96 U/L 13-40 H 1685612516) eGFR (test code = mL/min/1.73m2 8480635314) JUAN ALBERTO (test code = JUAN ALBERTO) [...] tests). Lab Interpretation Abnormal (test code = 54922-3) [facility] HospitalPROTHROMBIN TIME / [id number] 21:01:25 Test Item Value Reference Range Interpretation Comments PROTIME PATIENT (test See_Comment [Auto mated message] code = 5964-2) The system [employer] generated this result transmitted ref erence range: 12.0 - 1 4.7 Seconds. The re ference range was not u sed to interpret this result as normal/abnor mal. INR (test code = 6301-6) Nor mal INR <1.1; Warfarin Therap eutic range 2.0 to 3. 0 or 2.5 to 3.5, dep ending upon the indica tions. Lab Interpretation (test Normal code = 13207-3) [facility] HospitalCB WITH [id number] 20:54:03 Test Item Value Reference Range Interpretation Comments WBC (test code = See_Comment [Automated 5190-2) message] The sy stem which generated this [...] RDW-SD (test code = 47.8 fL 38.5-51.6 19643-3) RDW-CV (test code = 13.3 % 12.1-15.4 788-0) PLT (test code = See_Comment [Automated 777-3) message] The sy stem which generated this result transmitted reference range : 150 - 328 10*3/ ?L. The reference r elba was not used to interpret this result as normal/abnormal . MPV (test code = 8.6 fL 9.8-13 L 43071-1) NRBC/100 WBC (test See_Comment [Automat ed code = 1959614840) message] The system which generated this result transmitted reference range : 0.0 - 10.0 /100 WBCs. The refer ence range was not u sed to interpret th is result as normal/abnormal . NRBC x10^3 (test code See_Comment [Auto mated = 7879129770) message] The s ystem which generated this result transmitted reference range : 10*3/?L. The reference range was not used to interpret this result as normal/abnormal . GRAN MAT (NEUT) % 64.1 % (test code = 770-8) IMM GRAN % (test code 0.40 % = 0411511069) LYMPH % (test code = 16.6 % 736-9) MONO % (test code = 17.2 % 5905-5) EOS % (test code = 0.2 % 713-8) BASO % (test code = 1.5 % 706-2) GRAN MAT x10^3(ANC) 3.47 10*3/uL 1.99-6.95 (test code = 3629542245) IMM GRAN x10^3 (test 0-0.06 code = 7144329136) LYMPH x10^3 (test code 0.90 10*3/uL 1.09-3.23 L = 731-0) MONO x10^3 (test code 0.93 10*3/uL 0.36-1.02 = 742-7) EOS x10^3 (test code = 0.06-0.53 L 711-2) BASO x10^3 (test code 0.08 10*3/uL 0.01-0.09 = 704-7) Lab Interpretation Abnormal (test code = 44308-6) [facility] HospitalEthanol [id number] 21:08:00 Test Item Value Reference Range Interpretation Comments Ethanol (test code < 3 mg/dL The pharm acological = ETOH) response to blo od alcohol levels mayvary from individual to i ndividual. The fatal surinder ntrationhas been reported t o be >400mg/dL. Complete Blood Count Auto [id number] 17:33:00 Test Item Value Reference Range Interpretation [...] = NRBCP) 0 % UA, Urinalysis Rflx Cult/[id number] 17:33:00 Test Item Value Reference Range Interpretation Comments Color,Urine (test code = UCOL) Dark Yellow Yellow A Clarity,Urine (test code = Clear Clear UCLAR) Ph, Urine (test code = UPH) 6.5 5.0-9.0 N Specific [place],Urine (test 1.015 1.005-1.030 N code = USG) [...] mg/dL Negative A code = ULEU) Urine [id number] 17:33:00 Test Item Value Reference Range Interpretation Comments RBC,Urine (test code = URBCUF) None Seen /HPF 0-2 WBC,Urine (test code = UWBCUF) 0-5 /HPF 0-5 Epithelial Cell,Urine (test 0-5 /HPF 0-5 code = UECUF) Casts,Urine (test code = None Seen /LPF None Seen UCASTUF) Bacteria,Urine (test code = None Seen /hpf None Seen UBACTUF) Drug Screen,[id number] 17:33:00 Test Item Value Reference Range Interpretation [...] Urine (test code = UPROP) Comprehensive Metabolic [id number] 17:33:00 Test Item Value Reference Range Interpretation [...] 46-116 N = ALP) Sars-CoV-2/FLU A/B RSV [id number] 17:31:00 Test Item Value Reference Range Interpretation [...] (test code = SARS-CoV-2 PCR Result:) Drug Screen,[id number] 17:20:00 Test Item Value Reference Range Interpretation [...] code = UPROP) Complete Blood Count Auto [id number] 17:14:00 Test Item Value Reference Range Interpretation [...] code = NRBCP) 0 % Comprehensive Metabolic [id number] 17:14:00 Test Item Value Reference Range Interpretation [...] 207 U/L 46-116 H = ALP) Ethanol [id number] 17:14:00 Test Item Value Reference Range Interpretation Comments Ethanol (test code = ETOH) 192 mg/dL Complete Blood Count Auto [id number] 20:20:00 Test Item Value Reference Range Interpretation [...] code = NRBCP) 0 % Comprehensive Metabolic [id number] 20:20:00 Test Item Value Reference Range Interpretation [...] 189 U/L 46-116 H = ALP) Ethanol [id number] 20:20:00 Test Item Value Reference Range Interpretation Comments Ethanol (test code = ETOH) 10 mg/dL Sars-CoV-2/FLU A/B RSV [id number] 20:20:00 Test Item Value Reference Range Interpretation [...] = Amplification SARS-CoV-2 PCR Result:) UA, Urinalysis [id number] 20:20:00 Test Item Value Reference Range Interpretation Comments Color,Urine (test code = Yellow Y UCOL) Clarity,Urine (test code = Clear Clear UCLAR) PH,Urine (test code = 7.0 5.5-8.5 UPH.XX) Specific [place],Urine 1.020 1.005-1.030 N (test code = USG) [...] cells/uL Negative (test code = ULEU) Drug Screen,[id number] 20:20:00 Test Item Value Reference Range Interpretation [...] code = UTHCS) CT head/brain wo con [facility] [address] [place] [address] Patient Name: Walt Velazquez Medical Record#: [id number] Address: Homeless City/State/Zip: [place] [address]: Vinnie Navarro MD Phone: Insurance: Self Pay /Age/Sex: 1970/50/M Admit/Reg Date: 09/17/[address]: Vinnie Navarro MD Location: [facility]/ PCP: Pcp-Md KERWIN Stiles Date of Service: 09/17/21 Order (s): CT head/brain wo con CPT Code:93688 Report Number: [id number] Reason for Exam: Altered mental status Location [...]
[2023-04-28] MEDS ORDERED: LORazepam 2 MG/ML VIAL ONE (11:49)
[2023-04-28] MEDS ORDERED: NA CHLORIDE 0.9% 1,000 ML ONE (11:49)
[2023-04-28 11:53] LABS: Absolute Lymphocytes (CBC) 1.4 K/uL (0.7-4.9); Hematocrit 44.5 % (39.6-49.0); MCV 94.4 fL (80-100); MPV 5.7 fL (7.6-11.3); Platelets 409 thou/uL (152-406); RBC Red Blood Cell Count 4.71 M/uL (4.33-5.43)
[2023-04-28 12:13] LABS: Albumin 3.3 g/dL (3.4-5.0); Bilirubin Total 0.2 mg/dL (0.2-1.0); Potassium 4.2 mEq/L (3.5-5.1); Protein, Total 8.1 g/dL (6.4-8.2)
--- NOTE | 2023-04-28 12:40 | ER ---
Nurse's Notes [facility] Name: Walt Velazquez Age: 52 yrs Sex: Male : 1970 Arrival Date: 04/28/2023 Time: 11:11 Bed 20 Private MD: Diagnosis: Feet Pain;Alcohol abuse Presentation: 04/28 11:31 Chief complaint: Pt c/o bilateral foot pain from chronic wounds on heels, family hb reports alcohol withdrawal in triage, pt endorsed daily drinking, last drink was this morning, does not intend to quit drinking. Coronavirus screen: At this time, the client does not indicate any symptoms associated with coronavirus-19. Ebola Screen: No symptoms or risks identified at this time. Initial Sepsis Screen: Does the patient meet any 2 criteria? No. Patient's initial sepsis screen is negative. Does the patient have a suspected source of infection? No. Patient's initial sepsis screen is negative. Risk Assessment: Do you want to hurt yourself or someone else? Patient reports no desire to harm self or others. Onset of symptoms was April 28, 2023. 11:31 Method Of Arrival: Wheelchair hb 11:31 Acuity: LATASHA 3 hb Historical: - Allergies: 11:32 Trazodone; hb - PMHx: 11:32 Alcoholism; Bipolar II; Hypertensive disorder; Parkinsons; Seizure; hb - Immunization history:: Adult Immunizations up to date. - Social history:: Smoking status: Patient denies any tobacco usage or history of. Screenin:[facility] ED Fall Risk Assessment (Adult) Score/Fall Risk Level 0 - 2 = Low Risk nj1 Oriented to surroundings, Maintained a safe environment, Hourly rounding (assess needs \T\ fall precautionary measures) done. Abuse screen: Denies threats or abuse. Denies injuries from another. Nutritional screening: No deficits noted. Tuberculosis screening: No symptoms or risk factors identified. Assessment: 11:40 General: Appears in no apparent distress. comfortable, Behavior is calm, cooperative, nj1 appropriate for age. Pain: Complains of pain in right foot and left foot. 11:40 Neuro: Level of Consciousness is awake, alert, obeys commands, Oriented to person, nj1 place, time, situation. Neuro: Tremors . Cardiovascular: Patient's skin is warm and dry. Respiratory: Airway is patent Respiratory effort is even, unlabored. Vital Signs: 11:31 BP 139 / 97; Pulse 91; Resp 16; Temp 98.5(O); Pulse Ox 100% on R/A; Pain 10/10; hb 12:44 BP 146 / 90; Resp 18; cm13 11:31 Pain Scale: Adult hb ED Course: 11:15 Patient arrived in ED. mg5 11:15 Kaleb Groves MD is Attending Physician. ec2 11:32 Triage completed. hb 11:32 Arm band placed on. hb 11:33 Jie Alvarado, RN is Primary Nurse. nj1 11:43 Inserted saline lock: 22 gauge in right antecubital area, using aseptic technique. nj1 Blood collected. 11:45 Patient has correct armband on for positive identification. Bed in low position. Call nj1 light in reach. Provided Education on: call light, fall precautions. 13:07 No provider procedures requiring assistance completed. IV discontinued, intact, kd3 bleeding controlled, No redness/swelling at site. Pressure dressing applied. Administered Medications: 11:43 Drug: Ativan IVP 1 mg IVP once Route: IVP; Site: right antecubital; nj1 12:46 Follow up: Response: No adverse reaction cm13 11:43 Drug: NS 0.9% IV 1000 ml IV at 1 bolus Per protocol; 1000 mL bolus Route: IV; Rate: 1 nj1 bolus; Site: right antecubital; 12:45 Follow up: IV Status: Completed infusion; IV Intake: 1000ml cm13 Medication: 13:08 VIS not applicable for this client. kd3 Intake: 12:45 IV: 1000ml; Total: 1000ml. cm13 Outcome: 12:39 Discharge ordered by . ec2 13:08 Discharged to home via wheelchair, kd3 13:08 Condition: stable 13:08 Discharge instructions given to patient, Instructed on discharge instructions, follow up and referral plans. Demonstrated understanding of instructions, follow-up care, 13:08 Patient left the ED. kd3 Signatures: Landy Luareano, RN ROBERTO Tamara Ellsworth RN RN kd3 Jie Alvarado, RN RN nj1 Farzana Macdonald mg5 Kaleb Groves MD MD 2 Jamari Bynum RN RN 13
--- NOTE | 2023-04-28 12:40 | EDPHYS ---
Physician Documentation [facility] Name: Walt Velazquez Age: 52 yrs Sex: Male : 1970 Arrival Date: 04/28/2023 Time: 11:11 Bed 20 Private MD: ED Physician Kaleb Groves HPI: 04/28 11:30 This 52 yrs old Male presents to ER via Unassigned with complaints of Alcohol ec2 Withdrawal. 11:30 Patient with a posted chief complaint of alcohol withdrawal however unclear why patient ec2 is actually here. Patient was brought in by son due to concern for alcohol abuse, most recent drink this morning. Patient is not interested in stopping alcohol use. Patient's chief complaint is that he has bilateral foot pain that is chronic in nature for him. No recent falls or injuries, no trauma.. Historical: - Allergies: 11:32 Trazodone; hb - PMHx: 11:32 Alcoholism; Bipolar II; Hypertensive disorder; Parkinsons; Seizure; hb - Immunization history:: Adult Immunizations up to date. - Social history:: Smoking status: Patient denies any tobacco usage or history of. ROS: 11:30 Constitutional: as per hpi ec2 Exam: 11:30 Constitutional: GEN: NAD Head: atraumatic Eyes: EOMI Ears: External ears are ec2 normal. CV: regular rate LUNGS: no respiratory distress ABD: non-distended, soft, nontender, no guarding, not rigid SKIN: no evidence of rashes, skin breakdown noted at the bilateral heels, no surrounding erythema, no warmth, no discharge appreciated. MSK: no evidence of trauma NEURO: moves all extremities equally, not markedly tremulous, no tongue fasciculations appreciated Vital Signs: 11:31 BP 139 / 97; Pulse 91; Resp 16; Temp 98.5(O); Pulse Ox 100% on R/A; Pain 10/10; hb 12:44 BP 146 / 90; Resp 18; cm13 11:31 Pain Scale: Adult hb MDM: 11:15 Patient medically screened. ec2 11:30 ED course: Patient arrives today due to concern for possible alcohol withdrawal, ec2 bilateral feet pain. Examination remarkable for well-appearing nontoxic dividual does not toxidrome again no evidence of alcohol withdrawal on examination and has chronic skin wounds noted on the bilateral feet that are noninfectious appearing. Will obtain some basic lab work and give the patient Ativan however clinically he does not appear to be in alcohol withdrawal and does not require inpatient hospitalization for medical management for alcohol withdrawal. Additionally patient's bilateral feet do not appear infectious in nature and he has strong pulses with warm feet and good coloration, have a low suspicion for arterial insufficiency, low suspicion for infectious process. Accordingly will defer any advanced imaging like ultrasonography, angio or x-rays.. 12:31 Data reviewed: vital signs. ED course: CBC is reassuring without leukocytosis or ec2 anemia, metabolic profile with minimal hyponatremia and appropriate renal function. No significant liver abnormalities. . 12:38 ED course: On reassessment patient is well-appearing in no acute distress, patient is ec2 not toxidromic does not appear to be in active alcohol withdrawal, will discharge home.. 04/28 11:29 Order name: CBC with Diff; Complete Time: 12:27 ec2 04/28 11:29 Order name: CMP; Complete Time: 12:27 ec2 Administered Medications: 11:43 Drug: Ativan IVP 1 mg IVP once Route: IVP; Site: right antecubital; nj1 12:46 Follow up: Response: No adverse reaction cm13 11:43 Drug: NS 0.9% IV 1000 ml IV at 1 bolus Per protocol; 1000 mL bolus Route: IV; Rate: 1 nj1 bolus; Site: right antecubital; 12:45 Follow up: IV Status: Completed infusion; IV Intake: 1000ml cm13 Disposition Summary: 04/28/23 12:39 Discharge Ordered Notes: Location: Home ec2 Condition: Stable ec2 Diagnosis - Feet Pain ec2 - Alcohol abuse ec2 Discharge Instructions: - Discharge Summary Sheet ec2 - Alcohol Use Disorder ec2 Forms: - Medication Reconciliation Form ec2 - Thank You Letter ec2 - Antibiotic Education ec2 - Prescription Opioid Use ec2 - Patient Portal Instructions ec2 - Leadership Thank You Letter ec2 Signatures: Dispatcher [employer] Landy Leon RN RN Jie Alvarado RN RN nj1 Kaleb Groves MD MD ec2 Jamari Bynum RN cm13
[2023-04-28 13:13] VITALS: TEMP 98.5; O2SAT 100
[2023-04-28 13:14] VITALS: BP 146/90
== END 2023-04-28 13:08 | disposition home or self-care (01) ==
LOC: ER 11:11
DX: F10.20 Alcohol dependence, uncomplicated (principal); M79.672 Pain in left foot; M79.671 Pain in right foot
CPT/HCPCS: 36415; 80053; 85025; 96361; 96374; 99284; J7030

== ENCOUNTER 2023-04-28 18:34 | Emergency (ER) | payer SELFPAY ==
--- OUTSIDE RECORDS SUMMARY | 2023-04-28 18:47 | XMS REPORT | Continuity of Care Document ---
:1970 Author Organization [facility] t Address [address] [place] [address] Care Team Providers Name Role Phone Pcp-None [...] Number Effective Date Expiration Date Rhoda xiong [facility] [id number] 2022 FDC 00:00:00 Problems Condition Condition Condition Status Onset [...] ers E INGREDI 4-17 ity of 00:00: [place] 00 [facility] Social History Social Habit Start Date Stop Date Quantity Comments Source History of Cigarette Smoker Universi ty of tobacco use [facility] Exposure to 2022-11-01 2022-11-11 Not sure University of SARS-CoV-2 00:00:00 13:57:00 [facility] (event) [place] Tobacco use and 2022-08-10 2022-08-10 User of smokeless Un iversity of exposure 00:00:00 00:00:00 tobacco [facility] Alcohol intake 2022-08-10 2022-08-10 Current drinker Unive rsity of 00:00:00 00:00:00 of alcohol [facility] (finding) Sp[place] Tobacco Comment 2022-08-10 2022-08-10 1/2 a pack a day Uni versity of 00:00:00 00:00:00 [facility] Sex Ass[birth year] At [birth year] Universit y of 00:00:00 00:00:00 [facility] Smoking Status Start Date Stop Date Source Smokes tobacco daily 2022-08-10 00:00:00 Univers ity of [facility] Medications Ordered Filled Start Stop Current Ordering [...] [place] 00 First dose Medical on Thu Spur 08/12/22 at 0900, Until Discontinu ed, Routine foLIC acid Yes 1mg 1 mg, Univer s (FOLATE) 2-21 Oral, ity of tablet 1 mg 15:00: [place] First dose Medical on Thu [place] 08/12/22 at 0900, Until Discontinu ed, Routine foLIC acid 2022- No [id number] 1mg Take 1 Univers 1 mg tablet 08-1224 tablet by it y of 00:00: 04:59 mouth in [place] 00 :00 the [facility] for 30 days. oxazepam 2022- No 15mg [Order 1 Univ ers (SERAX) 08-11 Start] ity of capsule 15 20:00: 19:59 Name: [place] mg 00 :00 oxazepam Medical (SERAX) Spur capsule 15 mg Signed Summary: 15 mg, [...] 100 mg 00 First dose Medical on [facility] 08/11/22 at 1015, Until Discontinu ed, Routine enoxaparin 0 Yes 40mg 40 mg, Unive rs (LOVENOX) -19 Subcutaneo ity of injection 23:00[place] 00 First dose Medical on [facility] 08/10/22 at 1700, Until Discontinu ed, Routine NaCl 0.9% 0 Yes 1000mL at 125 Univ ers (NS) IV 2-19 mL/hr, IV ity of infusion 15:00: Infusion[place] 1,000 mL 00 CONTINUOUS Medic al , Starting Branch on [facility] 08/10/22 at 0900, Until Discontinu ed, Routine foLIC acid 2022- No 5mg IV Univer s (FOLATE) 5 08-10 Piggyback, it y of mg in NaCl 15:00: 16:14 DAILY, [place] 0.9% (NS) 00 :47 First dose Medi yudy piggyback on [facility] 08/10/22 at 0900, Until Discontinu ed, 50 mL thiamine 2022-0 202- No 100mg IV Univers (VITAMIN 08-10 Piggyback, ity of B1) 100 mg 15:00: 16:08 DAILY, 1 [place] in NaCl 00 :00 dose, Medical 0.9% (NS) First dose Bran ch piggyback on [facility] 08/10/22 at 0900, 50 mL LORazepam 0 Yes 2mg 2 mg, Slow Un lorena (ATIVAN) 08-10 IV Push, ity of injection 2 14:52: Q4HPRN, [place] mg 57 Starting Medical on [facility] 08/10/22 at 0852, Until Discontinu ed, Routine, Seizures, Agitation, Anxiety Sliding 0 Yes Subcutaneo Univ ers Scale 2-19 us, AC+HS, ity of Insulin-Reg 13:30: First dose [place] ular + [facility]bg [facility] 08/[facility]22 at Branch 0730, Until Discontinu ed, Routine oxazepam Yes 15mg 15 mg, Univers (SERAX) 08-10 Oral, ity of capsule 15 12:08: Q4HPRN, [place] mg 05 Starting Medical on [facility] 08/10/22 at 0608, Until Discontinu ed, Routine, Only while awake for DBP equal to or greater than 100, HR equal to or greater than 100. dextrose 0 Yes 250mL 250 mL, IV Un lorena 10% (D10W) 08-10 Infusion, ity of bolus 12:03: PRN - SEE [place] infusion 23 INSTRUCTIO Medic al 250 mL NS, Branch Administer over 60 Minutes, Other, If blood glucose is < or = 70 mg/dL and patient is unable to swallow or has mental status changes, Starting on [facility] 08/10/22 at 0603
If blood glucose is [...] KIT) 20 Starting Medical injection 1 on [facility] 08/10/22 at 0603, Until Discontinu ed, JACIEL, Blood Glucose < or = 70 mg/dL and patient is NPO, unable to swallow or has mental changes. ondansetron 0 Yes 4mg 4 mg, Slow Univers (ZOFRAN 08-10 IV Push, ity of (PF)) 12:02: Q6HPRN, [place] injection 4 53 Starting Medi yudy mg on [facility] 08/10/22 at 0602, Until Discontinu ed, Routine, Nausea and Vomiting (N/V) ibuprofen Yes 200mg 200 mg, Univ ers (MOTRIN IB) 08-10 Oral, ity of tablet 200 12:02: Q6HPRN, [place] mg 45 Starting Medical on [facility] 08/10/22 at 0602, Until Discontinu ed, Routine, Pain (scale 1-3) NaCl 0.9% 2022- No 1000mL at 999 Uni vers (NS) bolus 08-10 mL/hr, ity of infusion 10:15: 13:00 1,000 mL, [place] 1,000 mL 00 :00 IV Medical Infusion, Spur ONCE, 1 dose, On [facility] 08/10/22 at 0415, STAT LORazepam 2022- No .5mg 0.5 mg, Univ ers (ATIVAN) 08-10 Slow IV ity of injection 09:15: 09:19 Push, [place] 0.5 mg 00 :00 ONCE, 1 Medical dose, On [facility] 08/10/22 at 0315, STAT LORazepam 2022-0 2022- No 1mg 1 mg, Slow U nivers (ATIVAN) 08-10 IV Push, ity of injection 1 08:00: 07:05 ONCE NOW, [place] mg 00 :00 1 dose, On Medical [facility] 08/10/22 at 0200, STAT thiamine 2022- [...] :00 ONCE, 1 Medical dose, On Branch [facility] 04/06/22 at 1100, JACIEL ondansetron 2021-06- No 4mg 4 mg, Slow Univers (ZOFRAN 004-06 IV Push, ity of (PF)) 15:45: 14:50 ONCE, 1 [place] injection 4 00 :00 dose, On Medi yudy mg [facility] 04/06/22 at 1045, JACIEL oxazepam 2021- No 15mg 15 mg, Univer s (SERAX) 12-31 07-13 Oral, Q12H ity o f capsule 15 06:28: 06:29 TAPER, 2 [place] mg 17 :00 doses, Medical First dose Branch on Thu12/31/21 at 0130, Last dose on Thu12/31/21 at 1330, Routine multivitami Yes [id number] 1{tbl} Take 1 Univers n tablet 12-31 [id number] tablet by ity of 00:00: mouth in [place] 00 the Medical morning. Branch thiamine Yes [id number] 100mg Take 1 Univers 100 mg 12-31 [id number] tablet by ity of tablet 00:00: mouth in [place] 00 the Medical morning. Branch aspirin 81 Yes [id number] 81mg Take 1 Univers mg chewable 12-31 [id number] tablet by i ty of tablet 00:00: mouth in [place] 00 the Medical morning. Branch multivitami 2021-0 Yes [id number] 1{tbl} Take 1 Univers n tablet 7-12 [id number] tablet by ity of 00:00: mouth in [place] 00 the Medical morning. Branch thiamine 2021-0 Yes [id number] 100mg Take 1 Univers 100 mg 7-12 [id number] tablet by ity of tablet 00:00: mouth in [place] 00 the Medical morning. Branch aspirin 81 2021-0 Yes [id number] 81mg Take 1 Univers mg chewable 7-12 [id number] tablet by i ty of tablet 00:00: mouth in [place] 00 the Medical morning. Branch multivitami 2021-0 Yes [id number] 1{tbl} Take 1 Univers n tablet 7-12 [id number] tablet by ity of 00:00: mouth in [place] 00 the Medical morning. Branch thiamine 2021-0 Yes [id number] 100mg Take 1 Univers 100 mg 7-12 [id number] tablet by ity of tablet 00:00: mouth in [place] 00 the Medical morning. Branch aspirin 81 2021-0 Yes [id number] 81mg Take 1 Univers mg chewable 7-12 [id number] tablet by i ty of tablet 00:00: mouth in [place] the Medical morning. Branch multivitami 2021-0 Yes [id number] 1{tbl} Take 1 Univers n tablet 7-12 [id number] tablet by ity of 00:00: mouth in [place] the Medical morning. Branch thiamine 2021-0 Yes [id number] 100mg Take 1 Univers 100 mg 7-12 [id number] tablet by ity of tablet 00:00: mouth in [place] 00 the Medical morning. Branch aspirin 81 2021-0 Yes [id number] 81mg Take 1 Univers mg chewable 7-12 [id number] tablet by i ty of tablet 00:00: mouth in [place] 00 the Medical morning. Branch multivitami 2021-0 Yes [id number] 1{tbl} Take 1 Univers n tablet 7-12 [id number] tablet by ity of 00:00: mouth in [place] 00 the Medical morning. Branch thiamine 2021-0 Yes [id number] 100mg Take 1 Univers 100 mg 7-12 [id number] tablet by ity of tablet 00:00: mouth in [place] 00 the Medical morning. Branch aspirin 81 2021-0 Yes [id number] 81mg Take 1 Univers mg chewable - [id number] tablet by i ty of tablet 00:00: mouth in [place] 00 the morning. Branch multivitami 2021-0 Yes [id number] 1{tbl} Take 1 Univers n tablet - [id number] tablet by ity of 00:00: mouth in [place] 00 the morning. Branch thiamine 2021-0 Yes [id number] 100mg Take 1 Univers 100 mg - [id number] tablet by ity of tablet 00:00: mouth in [place] the morning. Branch aspirin 81 2021-0 Yes [id number] 81mg Take 1 Univers mg chewable - [id number] tablet by i ty of tablet 00:00: mouth in [place] 00 the morning. Branch foLIC acid 2021-2021- No [id number] 1mg Take 1 Univers 1 mg tablet 12-31 [id number] tablet by ity of 00:00: 04:59 mouth in [place] 00 :00 the [facility] morning Branch for 30 days. foLIC acid 2021-2021- No [id number] 1mg Take 1 Univers 1 mg tablet 12-31 [id number] tablet by ity of 00:00: 04:59 mouth in [place] 00 :00 the [facility] morning Branch for 30 days. foLIC acid 2021-2021- No [id number] 1mg Take 1 Univers 1 mg tablet 12-31 [id number] tablet by ity of 00:00: 04:59 mouth in [place] 00 :00 the [facility] morning Branch for 30 days. metFORMIN 2021-0 Yes [id number] 500mg Take 1 Univers 500 mg 7-11 [id number] tablet by ity of tablet 00:00: mouth in [place] the Medical morning Spur and 1 tablet in the evening. Take with meals. metFORMIN 2021-0 Yes [id number] 500mg Take 1 Univers 500 mg 7-11 [id number] tablet by ity of tablet 00:00: mouth in [place] the [facility] morning Spur and 1 tablet in the evening. Take with meals. metFORMIN 2021-0 Yes [id number] 500mg Take 1 Univers 500 mg 7-11 [id number] tablet by ity of tablet 00:00: mouth in [place] [address] the [facility] morning Spur and 1 tablet in the evening. Take with meals. metFORMIN 2021-0 Yes [id number] 500mg Take 1 Univers 500 mg 7-11 [id number] tablet by ity of tablet 00:00: mouth in [place] [address] the [facility] morning Spur and 1 tablet in the evening. Take with meals. metFORMIN Yes [id number] 500mg Take 1 Univers 500 mg 7-11 [id number] tablet by ity of tablet 00:00: mouth in [place] [address] the [facility] morning Spur and 1 tablet in the evening. Take with meals. metFORMIN Yes [id number] 500mg Take 1 Univers 500 mg 7-11 [id number] tablet by ity of tablet 00:00: mouth in [place] [address] the [facility] morning Spur and 1 tablet in the evening. Take with meals. aspirin Yes 81mg 81 mg, Univers chewable 7-10 Oral, ity of tablet 81 14:00: DAILY, [place] mg 00 First dose Medical on [facility] 12/29/21 at 0900, Until Discontinu ed, Routine sulfur 2021- No [id number] 5mL 5 mL, Unive rs hexafluorid 12-29 Intravenou i ty of e microsphr 13:45: 13:45 s, ONCE, 1 [place] (LUMASON) 00 :00 dose, On Medica l injection 5 [facility] mL 12/29/21 at 0845, Routine
manager membership approving Restricted medication : STEFANIE GORMAN enoxaparin Yes 40mg 40 mg, Unive rs (LOVENOX) 7-10 Subcutaneo ity of injection 13:00: us, Q24H, [place] 40 mg 00 First dose Medical on [facility] 12/29/21 at 0800, Until Discontinu ed, Routine Sliding Yes Subcutaneo Univ ers Scale 7-10 us, TID ity of Insulin - 13:00: MEALS+HS, [place] Lispro 00 First dose Medical (HumaLOG) + on [facility] Fsbg 12/29/21 at Testing 0800, Until Discontinu ed, Routine diazePAM 2021- No 10mg 10 mg, Univer s (VALIUM) 12-29 07 Intravenou ity of injection 05:30: 04:40 s, ONCE, 1 [place] 10 mg 00 :00 dose, On Medical [facility] 12/29/21 at 0030, Routine diazePAM 2021- No 10mg 10 mg, Univer s (VALIUM) 7-10 07-10 Intravenou ity of injection 04:15: 03:17 s, ONCE, 1 [place] 10 mg 00 :00 dose, On Medical [facility] 12/28/21 Branch at 2315, Routine diazePAM 2021-0 Yes 5mg 5 mg, Univers (VALIUM) 7-10 Intravenou ity o f injection 5 03:45: s, QIDPRN, [place] mg 01 Starting Medical on [facility] 12/28/21 at 2245, Until Discontinu ed, Routine, Seizures, Agitation foLIC acid 0 Yes 1mg 1 mg, Univer s (FOLATE) 7-10 Oral, ity of tablet 1 mg 03:45: DAILY, [place] 00 First dose Medical on [facility] 12/28/21 at 2245, Until Discontinu ed, Routine thiamine 0 Yes 100mg 100 mg, Unive rs (VITAMIN 7-10 Oral, ity of B1) tablet 03:45: DAILY, [place] 100 mg 00 First dose Medical (after Branch last modificati on) on [facility] 12/28/21 at 2245, Until Discontinu ed, Routine glucagon 2021-0 Yes 1mg 1 mg, Univers (GLUCAGEN 7-10 Intramuscu ity of DIAGNOSTIC 03:42: [place], PRN, [place] KIT) 19 Starting Medical injection 1 on [facility] 12/28/21 at 2242, Until Discontinu ed, JACIEL, Blood Glucose < or = 70 mg/dL and patient is unable to swallow or has mental changes. dextrose 0 Yes 250mL 250 mL, IV Un l[place] 10% (D10W) 7-10 Infusion, ity of bolus 03:42: PRN - SEE [place] infusion 19 INSTRUCTIO Medic al 250 mL NS, Branch Administer over 60 Minutes, Other, If blood glucose is < or = 70 mg/dL and patient is unable to swallow or has mental status changes, Starting on [facility] 12/28/21 at 2242
If blood [...] [place] mg 00 :00 dose, On Medical [facility] 12/28/21 Branch at 2230, Routine
Is the medication being used for status epilepticu s? No oxazepam Yes 15mg 15 mg, Univers (SERAX) 7-10 Oral, ity of capsule 15 00:28: Q4HPRN, [place] mg 20 Starting Medical on [facility] Branch 12/28/21 at 1928, Until Discontinu ed, Routine, Only while awake for DBP equal to or greater than 100, HR equal to or greater than 100. ondansetron Yes 4mg 4 mg, Slow Univers (ZOFRAN 7-10 IV Push, ity of (PF)) 00:23: Q6HPRN, [place] injection 4 47 Starting Medi yudy mg on [facility] Branch 12/28/21 at 1923, Until Discontinu ed, Routine, Nausea and Vomiting (N/V) acetaminoph Yes 650mg 650 mg, Un lorena en 7-10 Oral, ity of (TYLENOL) 00:23: Q6HPRN, [place] tablet 650 37 Starting Medic al mg on [facility] Branch 12/28/21 at 1923, Until Discontinu ed, Routine, Pain (scale 1-3), Temp > 38.5 C chlordiazeP 2021- No 25mg 25 mg, Uni vers OXIDE 12-28- Oral, ity of (LIBRIUM) 23:15: 23:24 ONCE, 1 [place] capsule 25 00 :00 dose, On Medic al mg [facility] 12/28/21 Branch at 1815, JACIEL [...] 20:31:31 116 mm[Hg] Univer sity of pressure [facility] [place] [facility] Diastolic blood 2022-11-11 20:31:31 77 mm[Hg] [facility] Heart rate 2022-11-11 20:31:31 84 /min [facility] [place] [facility] Respiratory rate 2022-11-11 20:31:31 12 /min Univ ersity of [place] [facility] Oxygen saturation in 2022-11-11 20:31:31 90 /min University of Arterial blood by [place] [facility] yudy Pulse oximetry Branch Body temperature 2022-11-11 18:49:00 37.11 Theresa Univ ersity [facility] [place] [facility] Body height 2022-11-11 18:49:00 160 cm [facility]i ty [facility] [place] [facility] Body weight 2022-11-11 18:49:00 68.04 kg [facility] [place] [facility] BMI 2022-11-11 18:49:00 26.57 kg/m2 [facility] [place] [facility] Body temperature 2022-08-11 14:00:00 36.5 Theresa Univ ersity [facility] [place] [facility] Systolic blood 2022-08-11 10:00:00 116 mm[Hg] Univer sity of pressure [place] [facility] Diastolic blood 2022-08-11 10:00:00 71 mm[Hg] Unive rsity of pressure [place] [facility] Heart rate 2022-08-11 10:00:00 70 /min [facility] [place] [facility] Respiratory rate 2022-08-11 10:00:00 16 /min Univ ersity of [place] [facility] Body weight 2022-08-11 10:00:00 65.499 kg [facility] [place] [facility] BMI 2022-08-11 10:00:00 25.58 kg/m2 [facility] [place] [facility] Oxygen saturation in 2022-08-11 10:00:00 100 /min University of Arterial blood by [place] Likehack yudy Pulse oximetry Branch Body height 2022-08-10 [...] 98 /min University of Arterial blood by [place] Medi yudy Pulse oximetry Branch Body temperature 2022-04-06 14:41:00 37 Theresa Univ ersity [facility] [place] [facility] Body height 2022-04-06 14:41:00 160 cm [facility] [place] [facility] Body weight 2022-04-06 14:41:00 63.504 kg [facility] [place] [facility] BMI 2022-04-06 14:41:00 24.80 kg/m2 [facility] [place] [facility] Systolic blood 2022-01-20 02:27:00 121 mm[Hg] Univer sity of pressure [place] [facility] Diastolic blood 2022-01-20 02:27:00 75 mm[Hg] Unive rsity of pressure [place] [facility] Heart rate 2022-01-20 02:27:00 79 /min [facility]i ty [facility] [place] [facility] Respiratory rate 2022-01-20 02:27:00 12 /min Univ ersity of [place] [facility] Oxygen saturation in 2022-01-20 02:27:00 98 /min University of Arterial blood by [facility] Pulse oximetry Branch Body temperature 2022-01-19 22:19:00 36.44 Theresa Univ ersity [facility] [place] [facility] Body weight 2022-01-19 22:19:00 60.328 kg Universi ty [facility] [place] [facility] BMI 2022-01-19 22:19:00 23.56 kg/m2 [facility] [place] [facility] Systolic blood 2021-12-30 20:52:00 134 mm[Hg] Univer sity of pressure [place] [facility] Diastolic blood 2021-12-30 20:52:00 76 mm[Hg] Unive rsity of pressure [place] [facility] Heart rate 2021-12-30 20:52:00 67 /min [facility] [place] [facility] Body temperature 2021-12-30 20:26:00 36.67 Theresa Univ [facility]ity [facility] [place] [facility] Oxygen saturation in 2021-12-30 20:26:00 99 /min University of Arterial blood by [facility] Pulse oximetry Branch Respiratory rate 2021-12-30 16:21:00 18 /min Univ ersity [facility] [place] [facility] Body weight 2021-12-30 08:27:00 60.464 kg [facility] [place] [facility] BMI 2021-12-30 08:27:00 23.61 kg/m2 [facility] [place] [facility] Body height 2021-12-29 01:29:00 160 cm [facility] Procedures Procedure Date / Time Performing Clinician Source Performed MAGNESIUM 2022-11-11 19:05:00 Hemant Klein [facility] BASIC METABOLIC PANEL 2022-11-11 19:05:00 Hemant Klein [facility] (NA, K, CL, CO2, GLUCOSE, Medica l Branch BUN, CREATININE, CA) ETHANOL 2022-11-11 19:05:00 [facility] CBC WITH DIFF 2022-11-11 19:05:00 [facility] POCT GLUCOSE (AUTOMATED) 2022-08-11 13:36:00 Jessica Prado [facility] PHOSPHORUS 2022-08-11 10:35:[address] [facility] MAGNESIUM 2022-08-11 10:35:[address] [facility] AMMONIA, PLASMA 2022-08-11 10:35:[address] [facility] COMP. METABOLIC PANEL 2022-08-11 10:35:00 Eve [facility] ([id number]) [facility] CBC WITH DIFF 2022-08-11 10:35:00 [facility] POCT GLUCOSE (AUTOMATED) 2022-08-11 02:15:00 Jessica Prado [facility] POCT GLUCOSE (AUTOMATED) 2022-08-10 23:10:00 OvJessica peralta [facility] POCT GLUCOSE (AUTOMATED) 2022-08-10 18:20:00 OvJessica peralta Uni [facility] POCT GLUCOSE (AUTOMATED) 2022-08-10 14:11:00 OvJessica peralta [facility] POCT GLUCOSE (AUTOMATED) 2022-08-10 10:59:00 Rayray Driscoll [facility] COVID-19 (ID NOW RAPID 2022-08-10 07:17:00 Rayray Driscoll [facility] TESTING) Medical Branch LAB ONLY COVID 2022-08-10 07:17:00 Rayray Driscoll [facility] HB ECG ROUTINE & RHYTHM 2022-08-10 06:03:48 Rayray Driscoll [facility] URINALYSIS 2022-08-10 05:46:00 Americo [facility] URINE DRUG (IMMUNOASSAY) 2022-08-10 05:45:[address] [facility] SCREEN W/O REFLEX CREATINE KINASE 2022-08-10 05:16:00 [facility] 2022-08-10 05:16:00 Americo [facility] MAGNESIUM 2022-08-10 05:16:00 Americ[facility] TROPONIN I 2022-08-10 05:16:00 Americo [facility] COMP. METABOLIC PANEL 2022-08-10 05:16:00 Rayray Driscoll [facility] ([id number] ETHANOL 2022-08-10 05:16:00 Rayray Driscoll [facility] CBC WITH DIFF 2022-08-10 05:16:00 [facility] N-TERMINAL PRO-BNP 2022-08-10 05:16:00 Rayray Driscoll [facility] CRITICAL CARE 2022-08-10 04:52:00 Rayray Driscoll [facility] XR CHEST 1 VW 2022-04-06 14:51:50 Diya Chowdhury [facility] LIPASE 2022-04-06 14:42:00 Diya Chowdhury [facility] TROPONIN I 2022-04-06 14:42:00 Diya Chowdhury [facility] COMP. METABOLIC PANEL 2022-04-06 14:42:00 Diya Chowdhury [facility] ([id number]) [facility] CBC WITH DIFF 2022-04-06 14:42:00 Diya Chowdhury [facility] PROTHROMBIN TIME / INR 2022-04-06 14:42:00 [facility] 2022-04-06 14:42:00 Diya Chowdhury [facility] THRLAS [facility] LACTIC ACID WHOLE BLOOD 2022-01-20 00:22:00 Leticia Hameed [facility] URINE DRUG (IMMUNOASSAY) 2022-01-19 23:10:00 Leticia Hameed [facility] SCREEN URINALYSIS 2022-01-19 23:10:00 Leticia Hameed Riddhi [facility] TROPONIN I 2022-01-19 23:00:00 Leticia Hameed Riddhi [facility] COMP. METABOLIC PANEL 2022-01-19 23:00:00 Leticia Hameed [facility] ([id number]) Medical Branch LITHIUM 2022-01-19 23:00:00 Leticia Hameed Riddhi [facility] ETHANOL 2022-01-19 23:00:00 Leticia Hameed Riddhi [facility] CBC WITH DIFF 2022-01-19 23:00:00 Leticia Hameed [facility] COVID-19 (ID NOW RAPID 2022-01-19 23:00:00 Leticia Hameed [facility] TESTING) [facility] CT HEAD WO CONTRAST 2022-01-19 22:49:00 Leticia Hameed [facility] XR CHEST 1 VW 2022-01-19 22:41:00 Leticia Hameed Riddhi [facility] POCT GLUCOSE (AUTOMATED) 2022-01-19 22:25:00 Leticia Hameed [facility] POCT GLUCOSE (AUTOMATED) 2021-12-30 21:55:00 Jessica Prado [facility] POCT GLUCOSE (AUTOMATED) 2021-12-30 16:21:00 Jessica Prado [facility] POCT GLUCOSE (AUTOMATED) 2021-12-30 12:30:00 Jessica Prado [facility] HEPATIC FUNCTION PANEL 2021-12-30 09:28:00 Maira Gaitan [facility] ([id number]) (ALB,T.PRO,BILI Medical Branch T,BU/BC,ALT,AST,ALK PHOS) POCT GLUCOSE (AUTOMATED) 2021-12-30 02:11:00 Eve [facility] POCT GLUCOSE (AUTOMATED) 2021-12-29 21:41:00 Eve [facility] POCT GLUCOSE (AUTOMATED) 2021-12-29 16:37:00 Eve [facility] TRANSTHORACIC ECHO (TTE) 2021-12-29 13:05:00 Eve [facility] W/ CONTRAST Medical [facility] POCT GLUCOSE (AUTOMATED) 2021-12-29 12:41:00 Eve [facility] TROPONIN I 2021-12-29 09:42:[address] [facility] TROPONIN I 2021-12-29 04:55:[address] [facility] CT HEAD WO CONTRAST 2021-12-28 21:18:22 Pia Renteria [facility] AMMONIA, PLASMA 2021-12-28 21:00:00 Pia Renteria [facility] COVID-19 (ID NOW RAPID 2021-12-28 20:42:00 Pia Renteria [facility] TESTING) Medical Spur LAB ONLY COVID 2021-12-28 20:42:00 Pia Renteria [facility] INTERPRETATION [facility] URINE DRUG (IMMUNOASSAY) 2021-12-28 20:42:00 Pia Renteria [facility] COMPREHENSIVE DRUG [facility] SCREEN W/O REFLEX URINALYSIS 2021-12-28 20:40:00 Pia Renteria [facility] N-TERMINAL PRO-BNP 2021-12-28 20:40:00 Pia Renteria [facility] TROPONIN I 2021-12-28 20:40:00 Pia Renteria [facility] THYROID STIMULATING 2021-12-28 20:40:00 Jessica Prado [facility] HORMONE [facility] COMP. METABOLIC PANEL 2021-12-28 20:40:00 Pia Renteria [facility] ([id number]) [facility] LIPID PANEL (76701)(TOTAL 2021-12-28 20:40:00 Demetrius Langford [facility] CHOLESTEROL, [facility] TRIGLYCERIDES, HDL) ETHANOL 2021-12-28 20:40:00 Demetrius Langford o f [facility] CBC WITH DIFF 2021-12-28 20:40:00 Dexter [facility] GLYCOSYLATED HEMOGLOBIN 2021-12-28 20:40:00 Jessica Prado [facility] (A1C) [facility] PROTHROMBIN TIME / INR 2021-12-28 20:40[facility] 2021-12-28 20:16:00 [facility]OUT[facility] & RHYTHM 2021-12-28 20:04:59 Pia Renteria [facility] Encounters Start End Encounter Admission Attending Care Care Encounter Source Date/Time Date/Time Type Type Clinicians Facility Department ID 2021-09-17 Inpatient [facility] [id number] [facility] 16:45:00 35 2020-06-06 Inpatient [facility] [id number] [facility] 16:07:00 05 2020-06-06 Inpatient [facility] [id number] [facility] 06:20:00 77 2020-06-05 Inpatient [facility] [id number] [facility] 19:35:00 25 2020-05-23 Inpatient [facility] [id number] [facility] 19:53:00 39 2020-05-23 Inpatient [facility] [id number] [facility] 19:53:00 39 2022-11-11 2022-11-11 Emergency X ERNIE [facility] ERT [id number] Univers 13:50:00 16:07:00 HEMANT rahman [facility] 2022-11-11 2022-11-11 Emergency Ernie DCYULIA 1.2.840.114 10 [id number] Univers 13:50:00 16:07:00 Hemant OTTO 350.1.13.10 i Mila 4.2.7.2.686 [facility] [id number] [place] [address] [address] 2022-10-14 2022-10-14 Emergency [facility] [id number] [facility] 20:59:00 20:59:00 66 2022-10-14 2022-10-14 Emergency Emergency Clareuwemily, [facility] [id number] [facility] 20:59:00 20:59:00 Lukuman 66 2022-08-09 2022-08-11 Outpatient X BELLENURA [facility] MARGO [id number] Univers 22:59:00 13:02:00 JESSICA rahman [facility] 2022-08-09 2022-08-11 Emergency Americo Rayray [facility] 1.2.840. 114 [id number] Univers 22:59:00 13:02:00 Jessica Prado 350.1.13.10 ity Oswald Tolliver 4.2.7.2.686 [facility] [id number] [address] 2022-04-06 2022-04-06 Emergency [facility] [id number] Univers 09:38:00 11:42:[address] [facility] 2022-04-06 2022-04-06 [facility] 1.2.840.114 [id number] Univers 09:38:00 11:42:00 Diya OTTO 350.1.13.10 i ty stacey MARTINI 4.2.7.2.686 [facility] [id number] [address] 2022-03-07 2022-03-07 Emergency [facility] [id number] [facility] 12:38:00 12:38:00 74 2022-03-07 2022-03-07 Emergency Emergency Polo Fidel [facility] JM0 [id number] [facility] 12:38:00 12:38:00 74 2022-01-19 2022-01-19 Emergency X NNEKA, [facility] ERT [id number] Univers 17:18:00 22:00:00 DIRK rahman [facility] 2022-01-19 2022-01-19 Emergency Leticia Hameed [facility] 1.2.840. 114 [id number] Univers 17:18:00 22:00:00 Dirk Yarbrough 350.1.13.10 ity of [place] 4.2.7.2.686 [facility] [id number] [facility] [address] 2021-12-31 2021-12-31 Transition EDMUNDO Portillo 1.2.840.114 [id number] Univers 00:00:00 00:00:00 of Care Faye RANKIN 350.1.13.10 ity of [place] 4.2.7.2.686 [facility] [id number] [facility] [address] 2021-12-28 2021-12-30 Inpatient X EVE [facility] MARGO [id number] Univers 14:53:00 17:42:00 JESSICA ity of [facility] 2021-12-28 2021-12-30 [facility] Pia Renteria [facility] 1.2.840. 114 [id number] Univers 14:53:00 17:42:00 Encounter Aroldo Pradoiftikhar OTTO 350.1.13.10 ity [facility] 4.2.7.2.686 [facility] [id number] [facility] 0[address] 2021-09-17 2021-09-17 Emergency [facility] [id number] [facility] 16:47:00 16:47:00 35 2020-06-06 2020-06-06 Emergency [facility] [id number] [facility] 16:07:00 16:07:00 05 Results Test Description Test Time Test Comments Results Result [facility] e Comments ETHANOL 2022-11-11 ALCOHOL<10mg/dL0 Universi ty of 19:45:56 11/11/2022 2:45 [facility]10 Mruvtfoz34-631 Toxic>100 Depression of PIECE WORKER>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 Fatalities Reported BASIC METABOLIC PANEL (NA, K, CL, CO2, GLUCOSE, BUN, 2022-10 19:41:47 CREATININE, CA) Test Item Value Reference Range Interpretation Comme nts NA (test code = 1208398563) 138 mmol/L 135-145 K (test code = 0062840374) 4.8 mmol/L 3.5-5.0 CL (test code = 0247895503) 103 mmol/L 98-108 CO2 TOTAL (test code = 0004489116) 26 mmol/L 23-31 AGAP (test code = 7403571389) 9 2-16 BUN (test code = 9957838550) 17 mg/dL 7-23 GLUCOSE (test code = 0113121012) 219 mg/dL 70-110 H CREATININE (test code = 0.72 mg/dL 0.60-1.25 6657958271) CALCIUM (test code = 4521369314) 10.0 mg/dL 8.6-10.6 eGFR (test code = 3909600369) 114.6 mL/min/1.73m2 JUAN ALBERTO (test code = [...] tests). Lab Interpretation (test code = Abnormal 78834-7) [facility]47 Test Item Value Reference Range Interpretation Comments MAGNESIUM (test code = 0055873790) 1.8 mg/dL 1.7-2.4 Lab Interpretation (test code = Normal 68164-0) [facility] WITH [id number] 19:25:26 Test Item Value Reference Range Interpretation [...] RDW-SD (test code = 46.0 fL 38.5-51.6 71701-9) RDW-CV (test code = 13.5 % 12.1-15.4 788-0) PLT (test code = 237 See_Comment [Automated 777-3) message] The sy stem which generated this result transmitted reference range : 150 - 328 10*3/ ?L. The reference r elba was not used to interpret this result as normal/abnormal . MPV (test code = 8.9 fL 9.8-13.0 L 74855-2) NRBC/100 WBC (test 0.0 See_Comment [Automat ed code = 7446669985) message] The system which generated this result transmitted reference range : 0.0 - 10.0 /100 WBCs. The refer ence range was not u sed to interpret th is result as normal/abnormal . NRBC x10^3 (test code See_Comment [Auto mated = 2524501562) message] The s ystem which generated this result transmitted reference range : 10*3/?L. The reference range was not used to interpret this result as normal/abnormal . GRAN MAT (NEUT) % 71.2 % (test code = 770-8) IMM GRAN % (test code 0.30 % = 9581510449) LYMPH % (test code = 18.2 % 736-9) MONO % (test code = 8.4 % 5905-5) EOS % (test code = 1.0 % 713-8) BASO % (test code = 0.9 % 706-2) GRAN MAT x10^3(ANC) 4.86 10*3/uL 1.99-6.95 (test code = 0245615744) IMM GRAN x10^3 (test 0.00-0.06 code = 5800908589) LYMPH x10^3 (test code 1.24 10*3/uL 1.09-3.23 = 731-0) MONO x10^3 (test code 0.57 10*3/uL 0.36-1.02 = 742-7) EOS x10^3 (test code = 0.07 10*3/uL 0.06-0.53 711-2) BASO x10^3 (test code 0.06 10*3/uL 0.01-0.09 = 704-7) Lab Interpretation Abnormal (test code = 73592-0) [facility] Urinal[facility] Rflx Cult/[id number] 22:20:00 Test Item Value Reference Range Interpretation Comments Color,Urine (test code = UCOL) Yellow Yellow Clarity,Urine (test code = Clear Clear UCLAR) Ph, Urine (test code = UPH) 7.0 5.0-9.0 N Specific [place],Urine (test 1.020 1.005-1.030 N code = USG) [...] Negative mg/dL Negative code = ULEU) Drug Screen,[id number] 22:20:00 Test Item Value Reference Range Interpretation [...] code = UPROP) Complete Blood Count Auto [id number] 21:21:00 Test Item Value Reference Range Interpretation [...] code = NRBCP) 0 % Comprehensive Metabolic Ijnbk0730-40-60 21:21:00 Test Item Value Reference Range Interpretation [...] race coefficient. Additional information can be found at:[phone]_m cb_ egfr_summary_fl evelin 5.pdf (kidney.o rg) [Automated [...] 46-116 H (test code = ALP) Ethanol Nnfjp4078-86-93 21:21:00 Test Item Value Reference Range Interpretation Comments Ethanol (test code < 3 mg/dL The pharm acological = ETOH) response to blo od alcohol levels mayvary from individual to i ndividual. The fatal surinder ntrationhas been reported t o be >400mg/dL. POCT GLUCOSE (AUTOMATED)2022-08-11 13:40:35 Test Item Value Reference Range Interpretation Comments POCT GLU (test code = 6716117186) 121 mg/dL 70-110 H Lab Interpretation (test code = Abnormal 27433-2) [facility] GLUCOSE (AUTOMATED)2022-08-11 02:18:58 Test Item Value Reference Range Interpretation Comments POCT GLU (test code = 1940185463) 183 mg/dL 70-110 H Lab Interpretation (test code = Abnormal 23871-0) [facility] GLUCOSE (AUTOMATED)2022-08-10 23:16:11 Test Item Value Reference Range Interpretation Comments POCT GLU (test code = 0244831501) 176 mg/dL 70-110 H Lab Interpretation (test code = Abnormal 50821-8) [facility] GLUCOSE (AUTOMATED)2022-08-10 18:22:51 Test Item Value Reference Range Interpretation Comments POCT GLU (test code = 3251003260) 165 mg/dL 70-110 H Lab Interpretation (test code = Abnormal 75655-0) [facility] GLUCOSE (AUTOMATED)2022-08-10 14:18:05 Test Item Value Reference Range Interpretation Comments POCT GLU (test code = 4924401932) 138 mg/dL 70-110 H Lab Interpretation (test code = Abnormal 67091-4) [facility] GLUCOSE (AUTOMATED)2022-08-10 11:01:21 Test Item Value Reference Range Interpretation Comments POCT GLU (test code = 4760757750) 143 mg/dL 70-110 H Lab Interpretation (test code = Abnormal 39825-9) [facility] [id number] 06:51:18 Test Item Value Reference Range Interpretation Comments TROPONIN I (test code = 0.008 ng/mL <=0.034 3060434944) JUAN ALBERTO (test code = JUAN ALBERTO) [...] biotin. Lab Interpretation Normal (test code = 83580-4) [facility] [id number] 06:47:37 Test Item Value Reference Range Interpretation Comments NT-proBNP (test code = 37 pg/mL <=125 4345405031) JUAN ALBERTO (test code = JUAN ALBERTO) Biotin has been reported to cause a negative bias, interpret results relative to patient's use of biotin. Lab Interpretation (test Normal code = 66184-8) [facility]2023-02-19 06:25:52 ALCOHOL<10mg/dL08/10/2022 12:25 AM [facility] LABORATORY<10 Gmnrvhyu33-187 Toxic>100 Depression of PIECE WORKER>400 Fatalities ReportedUnDeTar Healthcare SystemCOMP. METABOLIC PANEL (07892) 2022-08-10 06:19:15 Test Item Value Reference Range Interpretation Comments NA (test code = 135 mmol/L 135-145 9156587588) K (test code = 4.3 mmol/L 3.5-5.0 2444378094) CL (test code = 98 mmol/L 98-108 0874892810) CO2 TOTAL (test code = 30 mmol/L 23-31 4913323706) AGAP (test code = 7 2-16 7973781821) BUN (test code = 11 mg/dL 7-23 9898155502) GLUCOSE (test code = 153 mg/dL 70-110 H 2288668143) CREATININE (test code = 0.77 mg/dL 0.60-1.25 5131368597) TOTAL BILI (test code = 0.9 mg/dL 0.1-1.6 8786902132) CALCIUM (test code = 10.0 mg/dL 8.6-10.6 7263739021) T PROTEIN (test code = 7.7 g/dL 6.3-8.2 6389205349) ALBUMIN (test code = 4.6 g/dL 3.5-5.0 4140206027) ALK PHOS (test code = 92 U/L 34-122 4369316752) ALTv (test code = 35 U/L 5-50 1742-6) AST(SGOT) (test code = 42 U/L 13-40 H 8402544864) eGFR (test code = 106.1 mL/min/1.73m2 6710899197) JUAN ALBERTO (test code = JUAN ALBERTO) [...] tests). Lab Interpretation Abnormal (test code = 40454-2) [facility]2023-02-19 06:19:15 Test Item Value Reference Range Interpretation Comments MAGNESIUM (test code = 7717755444) 2.2 mg/dL 1.7-2.4 Lab Interpretation (test code = Normal 35034-2) [facility] SpringsLIPASE2023-02-19 06:18:55 Test Item Value Reference Range Interpretation Comments LIPASE (test code = 2500511702) 18 U/L 0-220 Lab Interpretation (test code = Normal 37950-0) [facility] SpringsCREATINE [id number] 06:18:55 Test Item Value Reference Range Interpretation Comments CK (test code = 3017677743) 174 U/L 33-194 Lab Interpretation (test code = Normal 52759-7) [facility]CB WITH [id number] 06:02:35 Test Item Value Reference Range Interpretation Comments WBC (test code = 7.50 See_Comment [Automated 6511-2) message] The sy stem which generated this [...] RDW-SD (test code = 50.2 fL 38.5-51.6 50784-8) RDW-CV (test code = 14.3 % 12.1-15.4 788-0) PLT (test code = 241 See_Comment [Automated 777-3) message] The sy stem which generated this result transmitted reference range : 150 - 328 10*3/ ?L. The reference r elba was not used to interpret this result as normal/abnormal . MPV (test code = 8.6 fL 9.8-13.0 L 74055-9) NRBC/100 WBC (test 0.0 See_Comment [Automat ed code = 5480948818) message] The system which generated this result transmitted reference range : 0.0 - 10.0 /100 WBCs. The refer ence range was not u sed to interpret th is result as normal/abnormal . NRBC x10^3 (test code See_Comment [Auto mated = 4984123128) message] The s ystem which generated this result transmitted reference range : 10*3/?L. The reference range was not used to interpret this result as normal/abnormal . GRAN MAT (NEUT) % 63.9 % (test code = 770-8) IMM GRAN % (test code 0.50 % = 1999685249) LYMPH % (test code = 17.6 % 736-9) MONO % (test code = 16.5 % 5905-5) EOS % (test code = 0.7 % 713-8) BASO % (test code = 0.8 % 706-2) GRAN MAT x10^3(ANC) 4.79 10*3/uL 1.99-6.95 (test code = 4860169441) IMM GRAN x10^3 (test 0.04 10*3/uL 0.00-0.06 code = 8496586711) LYMPH x10^3 (test code 1.32 10*3/uL 1.09-3.23 = 731-0) MONO x10^3 (test code 1.24 10*3/uL 0.36-1.02 H = 742-7) EOS x10^3 (test code = 0.05 10*3/uL 0.06-0.53 L 711-2) BASO x10^3 (test code 0.06 10*3/uL 0.01-0.09 = 704-7) Lab Interpretation Abnormal (test code = 52357-7) [facility]TR[facility] [id number] 15:15:32 Test Item Value Reference Interpretation Comments Range TROPONIN I (test 0.007 ng/mL See_Comment [Automated code = 5424777392) message] The system which generated this result [...] biotin. Lab Interpretation Normal (test code = 64413-3) [facility] SpringsaPTT2022-10-16 15:08:29 Test Item Value Reference Range Interpretation Comments APTT Patient (test See_Comment [Automat ed code = 3173-2) message] The system which generated this result transmitted reference range : 23 - 38 Seconds . The reference range was not used to interpr et this result as normal/abnormal . JUAN ALBERTO (test code = JUAN ALBERTO) The [facility] patient population mean normal value for aPTT is 30 seconds. Lab Interpretation Normal (test code = 84926-0) [facility] SpringsPROTHROMBIN TIME / [id number] 15:06:28 Test Item Value Reference Range Interpretation [...] tions. Lab Interpretation (test Normal code = 05215-4) [facility] SpringsCOMP. METABOLIC PANEL (66564)2022-04-06 15:03:31 Test Item Value Reference Range Interpretation Comments NA (test code = 136 mmol/L 135-145 8605542744) K (test code = 5.0 mmol/L 3.5-5 6209048375) CL (test code = 104 mmol/L 98-108 7446792633) CO2 TOTAL (test code = 21 mmol/L 23-31 L 2684332922) AGAP (test code = 2-16 9277556405) BUN (test code = 11 mg/dL 7-23 7075554234) GLUCOSE (test code = 162 mg/dL 70-110 H 2931754535) CREATININE (test code = 0.52 mg/dL 0.6-1.25 L 4765162428) TOTAL BILI (test code = 1.0 mg/dL 0.1-1.8 1091878027) CALCIUM (test code = 9.3 mg/dL 8.6-10.6 8738441442) T PROTEIN (test code = 7.4 g/dL 6.3-8.2 6283909163) ALBUMIN (test code = 4.4 g/dL 3.5-5 7002614878) ALK PHOS (test code = 134 U/L 34-122 H 2784499610) ALTv (test code = 17 U/L 5-50 2-6) AST(SGOT) (test code = 38 U/L 13-40 1132453169) eGFR (test code = mL/min/1.73m2 2969481365) JUAN ALBERTO (test code = JUAN ALBERTO) [...] tests). Lab Interpretation Abnormal (test code = 02090-3) [facility] SpringsLIP[facility], [id number] 15:03:31 Test Item Value Reference Range Interpretation Comments LIPASE (test code = 5864575504) 29 U/L 0-220 Lab Interpretation (test code = Normal 81422-5) [facility] WITH [id number] 14:51:49 Test Item Value Reference Range Interpretation [...] RDW-SD (test code = 45.9 fL 38.5-51.6 36073-8) RDW-CV (test code = 13.3 % 12.1-15.4 788-0) PLT (test code = See_Comment [Automated 777-3) message] The sy stem which generated this result transmitted reference range : 150 - 328 10*3/ ?L. The reference r elba was not used to interpret this result as normal/abnormal . MPV (test code = 8.4 fL 9.8-13 L 96085-6) NRBC/100 WBC (test See_Comment [Automat ed code = 8693712134) message] The system which generated this result transmitted reference range : 0.0 - 10.0 /100 WBCs. The refer ence range was not u sed to interpret th is result as normal/abnormal . NRBC x10^3 (test code See_Comment [Auto mated = 3584455113) message] The s ystem which generated this result transmitted reference range : 10*3/?L. The reference range was not used to interpret this result as normal/abnormal . GRAN MAT (NEUT) % 63.0 % (test code = 770-8) IMM GRAN % (test code 0.50 % = 0027126384) LYMPH % (test code = 25.2 % 736-9) MONO % (test code = 9.8 % 5905-5) EOS % (test code = 0.3 % 713-8) BASO % (test code = 1.2 % 706-2) GRAN MAT x10^3(ANC) 3.73 10*3/uL 1.99-6.95 (test code = 7529219889) IMM GRAN x10^3 (test 0.03 10*3/uL 0-0.06 code = 4641482744) LYMPH x10^3 (test code 1.49 10*3/uL 1.09-3.23 = 731-0) MONO x10^3 (test code 0.58 10*3/uL 0.36-1.02 = 742-7) EOS x10^3 (test code = 0.06-0.53 L 711-2) BASO x10^3 (test code 0.07 10*3/uL 0.01-0.09 = 704-7) Lab Interpretation Abnormal (test code = 09871-3) [facility], Urinalysis Rflx Cult/[id number] 13:53:00 Test Item Value Reference Range Interpretation Comments Color,Urine (test code = UCOL) Yellow Yellow Clarity,Urine (test code = Cloudy Clear A UCLAR) Ph, Urine (test code = UPH) 7.5 5.0-9.0 N Specific [place],Urine (test 1.025 1.005-1.030 N code = USG) [...] mg/dL Negative code = ULEU) UF REFLEXDrug Screen,[id number] 13:53:00 Test Item Value Reference Range Interpretation [...] code = UPROP) Complete Blood Count Auto [id number] 12:58:00 Test Item Value Reference Range Interpretation [...] = NRBCP) 0 % Coronavirus PCR, COVID19 [id number] 12:58:00 Test Item Value Reference Range Interpretation Comments Coronavirus PCR, COVID19 Rapid (test code = SARSCOV2) Coronavirus PCR, COVID19 Reference Range: Rapid (test code = Negative YFCBMOL24.1) SARS-CoV-2 PCR Result: Negative by RT-PCR (test code = SARS-CoV-2 PCR Result:) COVID-19 Status: AsymptomaticComprehensive Metabolic [id number] 12:58:00 Test Item Value Reference Range Interpretation [...] 144 U/L 46-116 H = ALP) Ethanol [id number] 12:58:00 Test Item Value Reference Range Interpretation Comments Ethanol (test code < 3 mg/dL The pharm acological = ETOH) response to blo od alcohol levels mayvary from individual to i ndividual. The fatal surinder ntrationhas been reported t o be >400mg/dL. [id number] 01:47:56 Test Item Value Reference Range Interpretation Comments Pateros (test code = 0.7 mmol/L 0.6-1.2 3760839593) JUAN ALBERTO (test code = JUAN ALBERTO) Toxic Range: ? Greater than 1.2 mmol/L Lab Interpretation (test Normal code = 57652-8) [facility]TROP[facility] [id number] 00:26:53 Test Item Value Reference Interpretation Comments Range TROPONIN I (test 0.002 ng/mL See_Comment [Automated code = 8308640275) message] The system which generated this result [...] biotin. Lab Interpretation Normal (test code = 64626-5) [facility] SpringsETHANOL2022-08-01 00:18:52 ALCOHOL<10mg/dL01/19/2022 7:18 PM [facility] LABORATORY<10 Gqaiktcq33-102 Toxic>100 Depression of PIECE WORKER>400 Fatalities ReportedUnDeTar Healthcare SystemCOM. METABOLIC PANEL (33950) 2022-01-20 00:16:16 Test Item Value Reference Range Interpretation Comments NA (test code = 137 mmol/L 135-145 0508271134) K (test code = 4.5 mmol/L 3.5-5 5188557730) CL (test code = 103 mmol/L 98-108 2163387442) CO2 TOTAL (test code = 26 mmol/L 23-31 5776837985) AGAP (test code = 2-16 5473520542) BUN (test code = 10 mg/dL 7-23 8583427403) GLUCOSE (test code = 121 mg/dL 70-110 H 1049495721) CREATININE (test code = 0.65 mg/dL 0.6-1.25 1151254552) TOTAL BILI (test code = 0.8 mg/dL 0.1-1.3 1816181322) CALCIUM (test code = 11.4 mg/dL 8.6-10.6 H 4315994375) T PROTEIN (test code = 7.2 g/dL 6.3-8.2 5156904919) ALBUMIN (test code = 4.6 g/dL 3.5-5 0023973414) ALK PHOS (test code = 112 U/L 34-122 9471796234) ALTv (test code = 19 U/L 50 1742-6) AST(SGOT) (test code = 26 U/L 13-40 0447424130) eGFR (test code = mL/min/1.73m2 2943282147) JUAN ALBERTO (test code = JUAN ALBERTO) [...] tests). Lab Interpretation Abnormal (test code = 60553-3) [facility] WITH [id number] 23:43:54 Test Item Value Reference Range Interpretation Comments WBC (test code = See_Comment [Automated 8511-2) message] The sy stem which generated this result transmitted reference range : 4.20 - 10.70 10*3/?L. The reference range was not used to interpret this result as normal/abnormal . RBC (test code = See_Comment [Automated 918-8) message] The sy stem which generated this [...] RDW-SD (test code = 44.0 fL 38.5-51.6 83034-5) RDW-CV (test code = 12.6 % 12.1-15.4 788-0) PLT (test code = See_Comment [Automated 777-3) message] The sy stem which generated this result transmitted reference range : 150 - 328 10*3/ ?L. The reference r elba was not used to interpret this result as normal/abnormal . MPV (test code = 9.1 fL 9.8-13 L 32381-1) NRBC/100 WBC (test See_Comment [Automat ed code = 3332285331) message] The system which generated this result transmitted reference range : 0.0 - 10.0 /100 WBCs. The refer ence range was not u sed to interpret th is result as normal/abnormal . NRBC x10^3 (test code See_Comment [Auto mated = 1753875800) message] The s ystem which generated this result transmitted reference range : 10*3/?L. The reference range was not used to interpret this result as normal/abnormal . GRAN MAT (NEUT) % 69.8 % (test code = 770-8) IMM GRAN % (test code 0.40 % = 8417206068) LYMPH % (test code = 18.0 % 736-9) MONO % (test code = 10.9 % 5905-5) EOS % (test code = 0.1 % 713-8) BASO % (test code = 0.8 % 706-2) GRAN MAT x10^3(ANC) 5.58 10*3/uL 1.99-6.95 (test code = [id number]) IMM GRAN x10^3 (test 0.03 10*3/uL 0-0.06 code = [id number]) LYMPH x10^3 (test code 1.44 10*3/uL 1.09-3.23 = 731-0) MONO x10^3 (test code 0.87 10*3/uL 0.36-1.02 = 742-7) EOS x10^3 (test code = 0.06-0.53 L 711-2) BASO x10^3 (test code 0.06 10*3/uL 0.01-0.09 = 704-7) Lab Interpretation Abnormal (test code = 93365-6) [facility] GLUCOSE (AUTOMATED)2022-01-19 22:27:41 Test Item Value Reference Range Interpretation Comments POCT GLU (test code = [id number]) 123 mg/dL 70-110 H Lab Interpretation (test code = Abnormal 34046-7) [facility] GLUCOSE (AUTOMATED)2021-12-30 22:08:16 Test Item Value Reference Range Interpretation Comments POCT GLU (test code = 3206828050) 167 mg/dL 70-110 H Lab Interpretation (test code = Abnormal 31766-0) [facility] GLUCOSE (AUTOMATED)2021-12-30 16:50:40 Test Item Value Reference Range Interpretation Comments POCT GLU (test code = 5400617662) 154 mg/dL 70-110 H Lab Interpretation (test code = Abnormal 40236-0) [facility] GLUCOSE (AUTOMATED)2021-12-30 12:38:43 Test Item Value Reference Range Interpretation Comments POCT GLU (test code = 3145102429) 164 mg/dL 70-110 H Lab Interpretation (test code = Abnormal 59635-1) [facility] GLUCOSE (AUTOMATED)2021-12-30 02:14:58 Test Item Value Reference Range Interpretation Comments POCT GLU (test code = 1332176464) 220 mg/dL 70-110 H Lab Interpretation (test code = Abnormal 77157-5) [facility] GLUCOSE (AUTOMATED)2021-12-29 21:50:02 Test Item Value Reference Range Interpretation Comments POCT GLU (test code = 7363216734) 191 mg/dL 70-110 H Lab Interpretation (test code = Abnormal 30342-8) [facility]21-[facility]-29 20:15:01 Test Item Value Reference Range Interpretation Comments POCT GLU (test code = 8533042392) 163 mg/dL 70-110 H Lab Interpretation (test code = Abnormal 93946-4) [facility]an[facility] (TTE)2021-12-29 19:12:22 Test Item Value Reference Range Interpretation Comments Height (test code = in 3076307848) Weight (test code = lbs 4724220853) Systolic BP (test code = mmHg 3862808968) Diastolic BP (test code mmHg = 4262743813) Heart Rate (test code = bpm 9564997290) BSA (test code = 1.62 m2 9154525177) Ao root annulus (test 2.45 cm code = 8325562103) Ao root diam (test code 2.45 cm = 4809219772) Aortic root (test code = 2.45 cm 3846970732) ACS (test code = 1.66 cm 2884693304) LA size (test code = 3.2 cm 2380263738) LVOT diameter (test code 1.95 cm = 0018232029) LVIDD (test code = 3.60 cm 1185730896) IVS (test code = 0.94 cm 1702975253) Interventricular Septum 0.94 cm Diastolic Thickness by 2D (test code = 8451353) LVPWD (test code = 0.80 cm 5685149094) PW (test code = 0.80 cm 0.6-1.4 4076287866) EF(Teich) (test code = 52.80 % 2717086523) LVIDS (test code = 2.60 cm 6018339699) FS (test code = 27 % 7587697627) EF - 2D (test code = 52.80 % 82103368) LAV(MOD-sp4) (test code 16.80 mL = 9260244202) MV Peak E Jovany (test code 46.1 cm/s = 1944497679) E wave decelartion time 0.31 s (test code = 3528363501) MV Peak A Jovany (test code 58.1 cm/s = 7702394218) E/A ratio (test code = ratio 8001094932) MV E/e' septal (test 5.7 cm/s code = 2854994035) Tapse (test code = 1.60 cm 4758554749) LVOT stroke volume (test 52.10 cm3 code = 4148393915) LVOT peak jovany (test code 110.6 cm/s = 2589213732) LVOT mn grad (test code mmHg = 8357215071) AV LVOT peak gradient mmHg (test code = 0850270083) LVOT peak VTI (test code 17.4 cm = 3030887629) LV V1 mean (test code = 66.10 cm/s 3560156666) Aortic valve mean 73.0 cm/s velocity (test code = 8709729320) Ao peak jovany (test code = 124.6 cm/s 8330961060) Ao VTI (test code = 18.6 cm 8065374821) AV area by cont VTI 2.8 cm2 (test code = 7377439617) AV area peak jovany (test 2.7 cm2 code = 2267898863) Ao max PG (test code = 6.20 mm[Hg] 8112943048) AV peak gradient (test mmHg code = 4002242313) AV valve area (test code 2.80 cm2 = 0864297572) AV mean gradient (test mmHg code = 4516453924) Radiology Study observation (narrative) (test code = 15746-8) JUAN ALBERTO (test code = JUAN ALBERTO) [...] mL of Lumason ultrasound enhancing agent used. [facility]2021-12-29 12:50:31 Test Item Value Reference Range Interpretation Comments POCT GLU (test code = 2731839847) 141 mg/dL 70-110 H Lab Interpretation (test code = Abnormal 65071-8) [facility] SpringsTroponin [id number] 10:38:31 Test Item Value Reference Interpretation Comments Range TROPONIN I (test 0.003 ng/mL See_Comment [Automated code = 9896304827) message] The system which generated this result [...] biotin. Lab Interpretation Normal (test code = 36524-5) [facility] SpringsLIPID PANEL (88896)(TOTAL CHOLESTEROL, TRIGLYCERIDES, HDL)2021-12-29 05:56:47 Test Item Value Reference Range Interpretation Comments CHOL (test code = 168 mg/dL 120-200 7718928742) HDL (test code = 102 mg/dL See_Comment [Automated message] 2073655528) The system DWNLD generated this result transmit naomie reference range : >=40. The refer ence range was not u sed to interpret th is result as normal/abnormal . HDLC RATIO (test code = See_Comment [Au tomated message] 4602162621) The system DWNLD generated this result transmit naomie reference range : <=5.0. The refe rence range was not u sed to interpret th is result as normal/abnormal . TRIG (test code = 55 mg/dL 30-170 9766617556) LDL CHOL (test code = 55 mg/dL See_Comment [Auto mated message] 76488-0) The system DWNLD generated this result transmit naomie reference range : <=160. The refe rence range was not u sed to interpret th is result as normal/abnormal . VLDL (test code = 11 mg/dL 5-60 6625462401) Lab Interpretation (test Normal code = 37616-4) [facility] SpringsThyroid Stimulating Hormone (TSH)2021-12-29 05:40:29 Test Item Value Reference Range Interpretation Comments TSH (test code = See_Comment Biotin has been 4055443983) reported to cau se a negative bias, interpret resul ts relative to pat jillian's use of biotin. [Automated mess age] The system DWNLD generated this result transmitted ref erence range: 0.45 - 4 .70 mIU/L. The refe rence range was not u sed to interpret this result as normal/abnor mal. Lab Interpretation (test Normal code = 64460-7) [facility]Troponin [id number] 05:34:29 Test Item Value Reference Interpretation Comments Range TROPONIN I (test 0.006 ng/mL See_Comment [Automated code = 4932619053) message] The system which generated this result [...] biotin. Lab Interpretation Normal (test code = 30146-2) [facility] SpringsETHANOL2022-07-10 04:43:01 ALCOHOL<10mg/dL12/28/2021 11:43 PM [facility]ORYToxic Greater than or equal to 80 mg/dL. NOTE: Whole blood values are approximately 10% to 15% lower than serum and plasma.[facility] SpringsGlycosylated Hemoglobin (A1C)2021-12-29 01:51:44 Test Item Value Reference Range Interpretation Comments HGB A1C (test code = 6.5 % 4-5.7 H 4548-4) JUAN ALBERTO (test code = JUAN ALBERTO) Reference RangesNormal: <5.7%Prediabetes: 5.7 - 6.4%Diabetes: > 6.5% Lab Interpretation (test Abnormal code = 94551-4) [facility] SpringsTROPONIN [id number] 21:26:50 Test Item Value Reference Interpretation Comments Range TROPONIN I (test 0.002 ng/mL See_Comment [Automated code = 3010007349) message] The system which generated this result [...] biotin. Lab Interpretation Normal (test code = 06834-2) [facility] SpringsN-TERMINAL [id number] 21:23:29 Test Item Value Reference Range Interpretation Comments NT-proBNP (test code 41 pg/mL See_Comment [Autom ated = 9107212500) message] The system which generated this result transmitted reference range : <=125. The reference range was not used to interpret this result as normal/abnormal . JUAN ALBERTO (test code = JUAN ALBERTO) Biotin has been reported to cause a negative bias, interpret results relative to patient's use of biotin. Lab Interpretation Normal (test code = 71833-7) [facility] SpringsAMMONIA, [id number] 21:20:38 Test Item Value Reference Range Interpretation Comments AMMONIA (test code = 9-33 L Slight hemolysis 5833174667) Lab Interpretation (test Abnormal code = 56638-2) [facility]. METABOLIC PANEL (59114)2021-12-28 21:08:48 Test Item Value Reference Range Interpretation Comments NA (test code = 137 mmol/L 135-145 7853645050) K (test code = 4.5 mmol/L 3.5-5 4230117325) CL (test code = 97 mmol/L 98-108 L 7761241370) CO2 TOTAL (test code = 29 mmol/L 23-31 5334400724) AGAP (test code = 2-16 2367206258) BUN (test code = 10 mg/dL 7-23 0860484921) GLUCOSE (test code = 188 mg/dL 70-110 H 9809514126) CREATININE (test code = 0.58 mg/dL 0.6-1.25 L 3664445331) TOTAL BILI (test code = 0.8 mg/dL 0.1-1.5 5182998169) CALCIUM (test code = 10.5 mg/dL 8.6-10.6 7490851666) T PROTEIN (test code = 7.6 g/dL 6.3-8.2 3827304610) ALBUMIN (test code = 4.5 g/dL 3.5-5 8568932383) ALK PHOS (test code = 107 U/L 34-122 6500515363) ALTv (test code = 66 U/L 5-50 H 1742-6) AST(SGOT) (test code = 96 U/L 13-40 H 2546349406) eGFR (test code = mL/min/1.73m2 2874753876) JUAN ALBERTO (test code = JUAN ALBERTO) [...] tests). Lab Interpretation Abnormal (test code = 73402-9) [facility] SpringsPROTHROMBIN TIME / [id number] 21:01:25 Test Item Value Reference Range Interpretation Comments PROTIME PATIENT (test See_Comment [Auto mated message] code = 5964-2) The system [employer] I/O generated this result transmitted ref erence range: 12.0 - 1 4.7 Seconds. The re ference range was not u sed to interpret this result as normal/abnor mal. INR (test code = 6301-6) Nor mal INR <1.1; Warfarin Therap eutic range 2.0 to 3. 0 or 2.5 to 3.5, dep ending upon the indica tions. Lab Interpretation (test Normal code = 52867-0) [facility] SpringsCB WITH [id number] 20:54:03 Test Item Value Reference Range Interpretation [...] RDW-SD (test code = 47.8 fL 38.5-51.6 43557-3) RDW-CV (test code = 13.3 % 12.1-15.4 788-0) PLT (test code = See_Comment [Automated 777-3) message] The sy stem which generated this result transmitted reference range : 150 - 328 10*3/ ?L. The reference r elba was not used to interpret this result as normal/abnormal . MPV (test code = 8.6 fL 9.8-13 L 47088-1) NRBC/100 WBC (test See_Comment [Automat ed code = 4590256782) message] The system which generated this result transmitted reference range : 0.0 - 10.0 /100 WBCs. The refer ence range was not u sed to interpret th is result as normal/abnormal . NRBC x10^3 (test code See_Comment [Auto mated = 3378340091) message] The s ystem which generated this result transmitted reference range : 10*3/?L. The reference range was not used to interpret this result as normal/abnormal . GRAN MAT (NEUT) % 64.1 % (test code = 770-8) IMM GRAN % (test code 0.40 % = 4808655903) LYMPH % (test code = 16.6 % 736-9) MONO % (test code = 17.2 % 5905-5) EOS % (test code = 0.2 % 713-8) BASO % (test code = 1.5 % 706-2) GRAN MAT x10^3(ANC) 3.47 10*3/uL 1.99-6.95 (test code = 3719784446) IMM GRAN x10^3 (test 0-0.06 code = 5626840897) LYMPH x10^3 (test code 0.90 10*3/uL 1.09-3.23 L = 731-0) MONO x10^3 (test code 0.93 10*3/uL 0.36-1.02 = 742-7) EOS x10^3 (test code = 0.06-0.53 L 711-2) BASO x10^3 (test code 0.08 10*3/uL 0.01-0.09 = 704-7) Lab Interpretation Abnormal (test code = 79771-7) [facility] SpringsEthanol [id number] 21:08:00 Test Item Value Reference Range Interpretation Comments Ethanol (test code < 3 mg/dL The pharm acological = ETOH) response to blo od alcohol levels mayvary from individual to i ndividual. The fatal surinder ntrationhas been reported t o be >400mg/dL. Complete Blood Count Auto [id number] 17:33:00 Test Item Value Reference Range Interpretation [...] = NRBCP) 0 % UA, Urinalysis Rflx Cult/[id number] 17:33:00 Test Item Value Reference Range Interpretation Comments Color,Urine (test code = UCOL) Dark Yellow Yellow A Clarity,Urine (test code = Clear Clear UCLAR) Ph, Urine (test code = UPH) 6.5 5.0-9.0 N Specific [place],Urine (test 1.015 1.005-1.030 N code = USG) [...] mg/dL Negative A code = ULEU) Urine [id number] 17:33:00 Test Item Value Reference Range Interpretation Comments RBC,Urine (test code = URBCUF) None Seen /HPF 0-2 WBC,Urine (test code = UWBCUF) 0-5 /HPF 0-5 Epithelial Cell,Urine (test 0-5 /HPF 0-5 code = UECUF) Casts,Urine (test code = None Seen /LPF None Seen UCASTUF) Bacteria,Urine (test code = None Seen /hpf None Seen UBACTUF) Drug Screen,[id number] 17:33:00 Test Item Value Reference Range Interpretation [...] Urine (test code = UPROP) Comprehensive Metabolic [id number] 17:33:00 Test Item Value Reference Range Interpretation [...] 46-116 N = ALP) Sars-CoV-2/FLU A/B RSV [id number] 17:31:00 Test Item Value Reference Range Interpretation [...] (test code = SARS-CoV-2 PCR Result:) Drug Screen,[id number] 17:20:00 Test Item Value Reference Range Interpretation [...] code = UPROP) Complete Blood Count Auto [id number] 17:14:00 Test Item Value Reference Range Interpretation [...] code = NRBCP) 0 % Comprehensive Metabolic [id number] 17:14:00 Test Item Value Reference Range Interpretation [...] 207 U/L 46-116 H = ALP) Ethanol [id number] 17:14:00 Test Item Value Reference Range Interpretation Comments Ethanol (test code = ETOH) 192 mg/dL Complete Blood Count Auto [id number] 20:20:00 Test Item Value Reference Range Interpretation [...] code = NRBCP) 0 % Comprehensive Metabolic [id number] 20:20:00 Test Item Value Reference Range Interpretation [...] 189 U/L 46-116 H = ALP) Ethanol [id number] 20:20:00 Test Item Value Reference Range Interpretation Comments Ethanol (test code = ETOH) 10 mg/dL Sars-CoV-2/FLU A/B RSV [id number] 20:20:00 Test Item Value Reference Range Interpretation [...] = Amplification SARS-CoV-2 PCR Result:) UA, Urinalysis [id number] 20:20:00 Test Item Value Reference Range Interpretation Comments Color,Urine (test code = Yellow Y UCOL) Clarity,Urine (test code = Clear Clear UCLAR) PH,Urine (test code = 7.0 5.5-8.5 UPH.XX) Specific [place],Urine 1.020 1.005-1.030 N (test code = USG) [...] cells/uL Negative (test code = ULEU) Drug Screen,[id number] 20:20:00 Test Item Value Reference Range Interpretation [...] code = UTHCS) CT head/brain wo con [facility] [address], [place] [address] Patient Name: Walt Velazquez Medical Record#: [id number] Address: Homeless City/State/Zip: [place] [address]: Vinnie Navarro MD Phone: Insurance: Self Pay /Age/Sex: 1970/50/M Admit/Reg Date: 09/17/[address]: Vinnie Navarro MD Location: [facility]/ PCP: Pcp-Md KERWIN Stiles Date of Service: 09/17/21 Order (s): CT head/brain wo con CPT Code:47351 Report Number: [id number] Reason for Exam: Altered mental status Location H 31 CT SCAN OF TH E HEAD WITHOUT CONTRAST CLINICAL HISTORY: Altered mental status TECHNIQUE: Helical CT was performed from the skull base to the vertex without IV contrast and provided at 5 mm slice thickness. Coronal and sagittal reconstruction provided. Axial images provided in bone windows as well. One or more the [facility] dose reduction techniques is utilized: Use of iterative reconstruction, automated exposure control, adjustment of the mAs and Kv for the patient's weight. DLP 822.2mGy-cm. FINDINGS: There is noCT evidence of acute infarct. No intra or [...] Sanders MD09/17/211824 TD/TT: 09/17/211824 Tech: ES135 cc: JOSEE; GENESIS* Vinnie Navarro MD; Pcp-Md KERWIN Stiles"
--- NOTE | 2023-04-28 19:39 | ER ---
Nurse's Notes [facility] Name: Walt Velazquez Age: 52 yrs Sex: Male : 1970 Arrival Date: 04/28/2023 Time: 18:34 Bed IW1 Private MD: Diagnosis: Foot Ulcer Presentation: 04/28 19:31 Chief complaint: Patient states: bilateral feet pain. Pt was seen here this morning for cm10 the same thing. Coronavirus screen: Vaccine status: Patient reports being unvaccinated. Client denies travel out of the [place] in the last 14 days. Ebola Screen: Patient denies travel to an Ebola-affected area in the 21 days before illness onset. No symptoms or risks identified at this time. Initial Sepsis Screen: Does the patient meet any 2 criteria? No. Patient's initial sepsis screen is negative. Does the patient have a suspected source of infection? No. Patient's initial sepsis screen is negative. Risk Assessment: Do you want to hurt yourself or someone else? Patient reports no desire to harm self or others. Onset of symptoms was April 28, 2023. 19:31 Method Of Arrival: Wheelchair cm10 19:31 Acuity: LATASHA 4 cm10 Triage Assessment: 21:28 General: Appears in no apparent distress. Behavior is calm, cooperative. Pain: kd3 Complains of pain in right foot and left foot. Historical: - Allergies: 19:32 Trazodone; cm10 - PMHx: 19:32 Alcoholism; Bipolar II; Hypertensive disorder; Parkinsons; Seizure; cm10 - Immunization history:: Adult Immunizations unknown. - Social history:: Smoking status: Patient reports the use of cigarette tobacco products, denies chronic smoking, but will smoke occasionally. Screenin:28 [facility] ED Fall Risk Assessment (Adult) History of falling in the last 3 months, kd3 including since admission No falls in past 3 months (0 pts) Confusion or Disorientation No (0 pts) Intoxicated or Sedated No (0 pts) Impaired Gait Yes (1 pt) Mobility Assist Device Used Yes (1 pt) Altered Elimination No (0 pt) Score/Fall Risk Level 0 - 2 = Low Risk Maintained a safe environment. Abuse screen: Denies threats or abuse. Denies injuries from another. Nutritional screening: No deficits noted. Tuberculosis screening: No symptoms or risk factors identified. Vital Signs: 19:31 BP 116 / 81; Pulse 105; Resp 18; Temp 98.4; Pulse Ox 100% on R/A; Weight 65.77 kg; cm10 ED Course: 18:37 Patient arrived in ED. mr 19:13 Kaleb Groves MD is Attending Physician. ec2 19:31 Triage completed. cm10 19:32 Arm band placed on Patient placed in waiting room. cm10 19:40 Kendra Mitchell MD is Referral Physician. ec2 21:14 Tamara Ellsworth, ROBERTO is Primary Nurse. kd3 21:28 No provider procedures requiring assistance completed. Patient did not have IV access kd3 during this emergency room visit. 21:29 Patient has correct armband on for positive identification. Provided Education on: . kd3 Administered Medications: 19:40 CANCELLED (Physician Discretion): [id number] mg PO once ec2 21:27 Drug: Ketorolac IM 30 mg IM once Route: IM; Site: right deltoid; kd3 21:27 Drug: Diazepam PO 5 mg PO once Route: PO; kd3 Medication: 21:29 VIS not applicable for this client. kd3 Outcome: 19:39 Discharge ordered by . ec2 21:28 Discharged to home via wheelchair, kd3 21:28 Condition: stable 21:28 Discharge instructions given to patient, Instructed on discharge instructions, Demonstrated understanding of instructions, follow-up care, medications, Prescriptions given X 1, 21:30 Patient left the ED. kd3 Signatures: Karrie Smiley, Reg Reg mr Tamara Ellsworth RN RN kd3 Michelle Mortensen RN RN 10 Kaleb Groves MD MD ec2
--- NOTE | 2023-04-28 19:39 | EDPHYS ---
Physician Documentation [facility] Name: Walt Velazquez Age: 52 yrs Sex: Male : 1970 Arrival Date: 04/28/2023 Time: 18:34 Bed IW1 Private MD: ED Physician Kaleb Groves HPI: 04/28 19:24 This 52 yrs old Male presents to ER via Unassigned with complaints of Leg ec2 problem, feet problem. 19:24 Patient arrives today for reevaluation of his feet pain. I saw the patient this morning ec2 and had lab work that was reassuring and patient states that he did not take any new medications and did not try any gdkw-sap-xheilam medications for his bilateral feet pain. Patient reports no new symptoms, no trauma no injuries, no fevers, no chills, no nausea, no vomiting.. Historical: - Allergies: 19:32 Trazodone; cm10 - PMHx: 19:32 Alcoholism; Bipolar II; Hypertensive disorder; Parkinsons; Seizure; cm10 - Immunization history:: Adult Immunizations unknown. - Social history:: Smoking status: Patient reports the use of cigarette tobacco products, denies chronic smoking, but will smoke occasionally. ROS: 19:36 Constitutional: as per hpi ec2 Exam: 19:36 Constitutional: GEN: NAD Head: atraumatic Eyes: EOMI Ears: External ears are ec2 normal. CV: Tachycardia LUNGS: no respiratory distress ABD: non-distended SKIN: Skin breakdown noted to the bilateral feet, has strong capillary refill, strong DP pulses, good coloration, toes are nonischemic MSK: no evidence of trauma NEURO: moves all extremities equally Vital Signs: 19:31 BP 116 / 81; Pulse 105; Resp 18; Temp 98.4; Pulse Ox 100% on R/A; Weight 65.77 kg; cm10 MDM: 19:13 Patient medically screened. ec2 19:36 Data reviewed: vital signs. ED course: Patient arrives today for evaluation of skin ec2 breakdown of the feet. Examination remarkable for skin findings as noted above. Patient is noted to be tachycardic however does not appear to be toxidromic, does not appear to be in alcohol withdrawal. Patient is not amenable to stopping alcohol and I do not feel given aggressive management or inpatient hospitalization will be beneficial to the patient at this time. I will start the patient on Robaxin for his pain and instructed him he needs to follow-up with primary care doctor.. Administered Medications: 19:40 CANCELLED (Physician Discretion): [id number] mg PO once ec2 21:27 Drug: Ketorolac IM 30 mg IM once Route: IM; Site: right deltoid; kd3 21:27 Drug: Diazepam PO 5 mg PO once Route: PO; kd3 Disposition Summary: 04/28/23 19:39 Discharge Ordered Notes: Location: Home ec2 Condition: Stable ec2 Diagnosis - Foot Ulcer ec2 Followup: ec2 - With: Kendra Mitchell MD - When: - Reason: Continuance of care Discharge Instructions: - Discharge Summary Sheet ec2 Forms: - Medication Reconciliation Form ec2 - Thank You Letter ec2 - Antibiotic Education ec2 - Prescription Opioid Use ec2 - Patient Portal Instructions ec2 - Leadership Thank You Letter ec2 Prescriptions: - methocarbamol 500 mg Oral tablet - take 2 tablets ORAL route 4 times per day; 20 tablet; Refills: 0, Product ec2 Selection Permitted Signatures: Tamara Ellsworth RN RN kd3 Michelle Mortensen RN RN cm10 Kaleb Groves MD MD ec2 Corrections: (The following items were deleted from the chart) 19:36 19:24 Patient was seen by me earlier today, arrives today again due to concern for feet ec2 pain. Patient is brought in by family member who is angry and upset and hostile.. ec2 19:40 19:39 Methocarbamol PO 500 mg PO once ordered. ec2 ec2 20:33 19:36 ED course: Patient arrives today for evaluation of skin breakdown of the feet. ec2 Examination remarkable for skin findings as noted above. Patient is noted to be tachycardic however does not appear to be toxidromic, does not appear to be in alcohol withdrawal. Patient is not amenable to stopping alcohol cessation and I do not feel given aggressive management or inpatient hospitalization will be beneficial to the patient at this time. I will start the patient on Robaxin for his pain and instructed him he needs to follow-up with primary care doctor.. ec2
[2023-04-28] MEDS ORDERED: KETOROLAC 30 MG/ML INJ ONE (21:29)
[2023-04-28] MEDS ORDERED: DIAZEPAM 5 MG TABLET ONE (21:29)
[2023-04-28 21:38] VITALS: BP 116/81; TEMP 98.4; O2SAT 100
== END 2023-04-28 21:30 | disposition home or self-care (01) ==
LOC: ER 18:34
DX: L97.521 Non-pressure chronic ulcer of other part of left foot limited to breakdown of skin (principal); L97.511 Non-pressure chronic ulcer of other part of right foot limited to breakdown of skin; F10.20 Alcohol dependence, uncomplicated; F17.210 Nicotine dependence, cigarettes, uncomplicated; Z88.5 Allergy status to narcotic agent
CPT/HCPCS: 96372; 99284

== ENCOUNTER → 2023-07-11 | Emergency (ER) | payer SELFPAY ==
[~2023-07-11] MED LIST: IBUPROFEN 200 MG TAB PO ONE
--- OUTSIDE RECORDS SUMMARY | 2023-07-11 00:23 | XMS REPORT | Continuity of Care Document ---
Author Name Unknown Address [address] [facility] [address] [facility] Address [address] [facility] [address] [place] [address] Care Team Providers Care Brush Polisher Name Role Phone Pcp-None Primary Care Physician Unavailab HEMANT Adame Attending Clinician Unavailable Hemant Klein MD Attending Clinician [phone] Pan Pinto Attending Clinician Unavailab JESSICA Gallardo Attending Clinician Unavailable Rayray Driscoll MD Attending Clinician [phone] Jessica Praod MD Attending Clinician [phone] Oswald Murphy MD Attending Clinician [phone] DIYA CHOWDHURY Attending Clinician Unavailab Diya Mackey DO Attending Clinician [phone] Fidel Cuellar Attending Clinician Unavailable DIRK YARBROUGH Attending Clinician Unavailable Leticia Rowland Attending Clinician [phone] Dirk Yarbrough MD Attending Clinician [phone] Faye Portillo LVN Attending Clinician [phone] Pia Reddy Attending Clinician [phone] Vinnie Navarro Attending Clinician Unavailable OSWALD MURPHY Admitting Clinician Unavailable Oswald Murphy MD Admitting Clinician [phone] DIYA CHOWDHURY Admitting Clinician UnavailLeticia Gaytan Admitting Clinician Unavailable JESSICA PRADO Admitting Clinician Unavailable Jessica Prado MD Admitting Clinician [phone] Payers Payer Name Policy Type Policy Number Effective Date Expirati on Date Source [facility] [id number] 2022 00:00:00 Problems Condition Name Condition Details Condition Category Status Onset Date Resolution Date Last Treatment Date Treating Clinician Comments Source Alcohol withdrawal syndrome with complicati on Alcohol withdrawal syndrome with complicati on Disease Active 08-10 00:00: 00 [facility] Type 2 diabetes mellitus with other specified complicati on Type 2 diabetes mellitus with other specified complicati on Disease Active 12-29 00:00: 00 [facility] Dyslipidem ia Dyslipidem ia Disease Active 12-29 00:00: 00 [facility] Chest pain, unspecifie d type Chest pain, unspecifie d type Disease Active 12-28 00:00: 00 [facility] Priapism Priapism Disease Active 2013-06- 00:00: 00 [facility] Allergies, Adverse Reactions, Alerts Allergy Name Allergy Type Status Severity Reaction(s) Onset Date Inactive Date Treating Clinician Comments Source No Known Drug Allergie s DA Active U 4-25 00:00: 00 [facility] No Known Drug Allergie s DA Active U 0 9-16 00:00: 00 [facility] No Known Drug Allergie s DA Active U 3-29 00:00: 00 [facility] No Known Drug Allergie s DA Active U 2019-06 2-16 00:00: 00 [facility] No Known Drug Allergie s DA Active U 2019-06 2-15 00:00: 00 [facility] No Known Drug Allergie s DA Active U 2019-06 00:00: 00 [facility] Trazodon e Propensi ty to adverse reaction s Active Other - See comments 10-06 00:00: 00 [facility] TRAZODON E DRUG INGREDI Active Other-Cmnt 10-06 00:00: 00 [facility] Social History Social Habit Start Date Stop Date Quantity Comments Source History of tobacco use Cigarette Smoker [facility] Exposure to SARS-CoV-2 (event) 2022-11-01 00:00:00 2022-11-11 13:57:00 Not sure [facility] Tobacco use and exposure 2022-08-10 00:00:00 2022-08-10 00:00:00 User of smokeless tobacco [facility] Alcohol intake 2022-08-10 00:00:00 2022-08-10 00:00:00 Current drinker of alcohol (finding) [facility] Tobacco Comment 2022-08-10 00:00:00 2022-08-10 00:00:00 1/2 a pack a day [facility] Sex Ass[birth year] At 1970 00:00:00 1970 00:00:00 [facility] Smoking Status Start Date Stop Date Source Smokes tobacco daily 2022-08-10 00:00:00 [facility] Medications Ordered Medication Name Filled Medication Name Start Date Stop Date Current Medication? Ordering Clinician Indication Dosage Frequency Signature (SIG) Comments Components Source NaCl 0.9% (NS) bolus infusion 1,000 mL 11-11 19:45: 00 11-11 20:23 :00 No 1000mL at 999 mL/hr, 1,000 mL, IV Piggyback, ONCE, 1 dose, On Thu11/11/22 at 1445, STAT [facility] multivitami n tablet 1 tablet 08-12 15:00: 00 Yes 1{tbl} 1 tablet, Oral, DAILY, First dose on Thu08/12/22 at 0900, Until Discontinu ed, Routine [facility] foLIC acid (FOLATE) tablet 1 mg 08-12 15:00: 00 Yes 1mg 1 mg, Oral, DAILY, First dose on Thu08/12/22 at 0900, Until Discontinu ed, Routine [facility] foLIC acid 1 mg tablet 08-12 00:00: 00 09-12 04:59 :00 No [id number] 1mg Take 1 tablet by mouth in the morning for 30 days. [facility] oxazepam (SERAX) capsule 15 mg 08-11 20:00: 00 08-12 19:59 :00 No 15mg [Order 1 Start] Name: oxazepam (SERAX) capsule 15 mg [...] Thu08/13/22 at 0600, Routine [Order 2 End] [facility] thiamine (VITAMIN B1) tablet 100 mg 08-11 16:15: 00 Yes 100mg 100 mg, Oral, DAILY, First dose on Thu08/11/22 at 1015, Until Discontinu ed, Routine [facility] enoxaparin (LOVENOX) injection 40 mg 08-10 23:00: 00 Yes 40mg 40 mg, Subcutaneo us, DAILY, First dose on Thu08/10/22 at 1700, Until Discontinu ed, Routine [facility] NaCl 0.9% (NS) IV infusion 1,000 mL 08-10 15:00: 00 Yes 1000mL at 125 mL/hr, IV Infusion, CONTINUOUS , Starting on Thu08/10/22 at 0900, Until Discontinu ed, Routine [facility] foLIC acid (FOLATE) 5 mg in NaCl 0.9% (NS) piggyback 08-10 15:00: 00 08-11 16:14 :47 No 5mg IV Piggyback, DAILY, First dose on Thu08/10/22 at 0900, Until Discontinu ed, 50 mL [facility] thiamine (VITAMIN B1) 100 mg in NaCl 0.9% (NS) piggyback 08-10 15:00: 00 08-10 16:08 :00 No 100mg IV Piggyback, DAILY, 1 dose, First dose on Thu08/10/22 at 0900, 50 mL [facility] LORazepam (ATIVAN) injection 2 mg 08-10 14:52: 57 Yes 2mg 2 mg, Slow IV Push, Q4HPRN, Starting on Thu08/10/22 at 0852, Until Discontinu ed, Routine, Seizures, Agitation, Anxiety [facility] Sliding Scale Insulin-Reg ular + Fsbg Testing 08-10 13:30: 00 Yes Subcutaneo us, AC+HS, First dose on Thu08/10/22 at 0730, Until Discontinu ed, Routine [facility] oxazepam (SERAX) capsule 15 mg 08-10 12:08: 05 Yes 15mg 15 mg, Oral, Q4HPRN, Starting on Thu08/10/22 at 0608, Until Discontinu ed, Routine, Only while awake for DBP equal to or greater than 100, HR equal to or greater than 100. [facility] dextrose 10% (D10W) bolus infusion 250 mL 08-10 12:03: 23 Yes 250mL 250 mL, IV Infusion, PRN - SEE INSTRUCTIO NS, Administer over 60 Minutes, Other, If blood glucose is < or = 70 mg/dL and patient is unable to swallow or has mental status changes, Starting on Thu08/10/22 at 0603
If blood glucose is < [...] blood glucose is < 80 mg/dL, repeat.
[facility] glucagon (GLUCAGEN DIAGNOSTIC KIT) injection 1 mg 08-10 12:03: 20 Yes 1mg 1 mg, Intramuscu lar, PRN, Starting on Thu08/10/22 at 0603, Until Discontinu ed, JACIEL, Blood Glucose < or = 70 mg/dL and patient is NPO, unable to swallow or has mental changes. [facility] ondansetron (ZOFRAN (PF)) injection 4 mg 08-10 12:02: 53 Yes 4mg 4 mg, Slow IV Push, Q6HPRN, Starting on Thu08/10/22 at 0602, Until Discontinu ed, Routine, Nausea and Vomiting (N/V) [facility] ibuprofen (MOTRIN IB) tablet 200 mg 08-10 12:02: 45 Yes 200mg 200 mg, Oral, Q6HPRN, Starting on Thu08/10/22 at 0602, Until Discontinu ed, Routine, Pain (scale 1-3) [facility] NaCl 0.9% (NS) bolus infusion 1,000 mL 08-10 10:15: 00 08-10 13:00 :00 No 1000mL at 999 mL/hr, 1,000 mL, IV Infusion, ONCE, 1 dose, On Thu08/10/22 at 0415, STAT [facility] LORazepam (ATIVAN) injection 0.5 mg 08-10 09:15: 00 08-10 09:19 :00 No .5mg 0.5 mg, Slow IV Push, ONCE, 1 dose, On Thu08/10/22 at 0315, STAT [facility] LORazepam (ATIVAN) injection 1 mg 08-10 08:00: 00 08-10 07:05 :00 No 1mg 1 mg, Slow IV Push, ONCE NOW, 1 dose, On Thu08/10/22 at 0200, STAT [facility] thiamine (VITAMIN B1) injection 100 mg 08-10 06:45: 00 08-10 06:52 :00 No 100mg 100 mg, Intravenou s, ONCE, 1 dose, On 08/10/22 at 0045, JACIEL [facility] LORazepam (ATIVAN) injection 1 mg 08-10 05:15: 00 08-10 05:22 :00 No 1mg 1 mg, Slow IV Push, ONCE, 1 dose, On 08/09/22 at 2315, STAT [facility] ketorolac (TORADOL) injection 15 mg 2021-06 16:00: 00 04-06 14:50 :00 No 15mg 15 mg, Slow IV Push, ONCE, 1 dose, On 04/06/22 at 1100, [facility] ondansetron (ZOFRAN (PF)) injection 4 mg 2021-06 15:45: 00 04-06 14:50 :00 No 4mg 4 mg, Slow IV Push, ONCE, 1 dose, On Thu04/06/22 at 1045, [facility] oxazepam (SERAX) capsule 15 mg 12-31 06:28: 17 01-01 06:29 :00 No 15mg 15 mg, Oral, Q12H TAPER, 2 doses, First dose on Thu12/31/21 at 0130, Last dose on Thu12/31/21 at 1330, Routine [facility] multivitami n tablet 12-31 00:00: 00 Yes [id number] 1{tbl} Take 1 tablet by mouth in the morning. [facility] thiamine 100 mg tablet 12-31 00:00: 00 Yes [id number] 100mg Take 1 tablet by mouth in the morning. [facility] aspirin 81 mg chewable tablet 12-31 00:00: 00 Yes [id number] 81mg Take 1 tablet by mouth in the morning. [facility] multivitami n tablet 12-31 00:00: 00 Yes [id number] 1{tbl} Take 1 tablet by mouth in the morning. [facility] thiamine 100 mg tablet 12-31 00:00: 00 Yes [id number] 100mg Take 1 tablet by mouth in the morning. [facility] aspirin 81 mg chewable tablet 0 12-31 00:00: 00 Yes [id number] 81mg Take 1 tablet by mouth in the morning. [facility] multivitami n tablet 12-31 00:00: 00 Yes [id number] 1{tbl} Take 1 tablet by mouth in the morning. [facility] thiamine 100 mg tablet 12-31 00:00: 00 Yes [id number] 100mg Take 1 tablet by mouth in the morning. [facility] aspirin 81 mg chewable tablet 12-31 00:00: 00 Yes [id number] 81mg Take 1 tablet by mouth in the morning. [facility] multivitami n tablet 12-31 00:00: 00 Yes [id number] 1{tbl} Take 1 tablet by mouth in the morning. [facility] thiamine 100 mg tablet 12-31 00:00: 00 Yes [id number] 100mg Take 1 tablet by mouth in the morning. [facility] aspirin 81 mg chewable tablet 12-31 00:00: 00 Yes [id number] 81mg Take 1 tablet by mouth in the morning. [facility] multivitami n tablet 12-31 00:00: 00 Yes [id number] 1{tbl} Take 1 tablet by mouth in the morning. [facility] thiamine 100 mg tablet 12-31 00:00: 00 Yes [id number] 100mg Take 1 tablet by mouth in the morning. [facility] aspirin 81 mg chewable tablet 12-31 00:00: 00 Yes [id number] 81mg Take 1 tablet by mouth in the morning. [facility] multivitami n tablet 2021-0 12-31 00:00: 00 Yes [id number] 1{tbl} Take 1 tablet by mouth in the morning. [facility] thiamine 100 mg tablet 12-31 00:00: 00 Yes [id number] 100mg Take 1 tablet by mouth in the morning. [facility] aspirin 81 mg chewable tablet 12-31 00:00: 00 Yes [id number] 81mg Take 1 tablet by mouth in the morning. [facility] foLIC acid 1 mg tablet 12-31 00:00: 00 01-31 04:59 :00 No [id number] 1mg Take 1 tablet by mouth in the morning for 30 days. [facility] foLIC acid 1 mg tablet 12-31 00:00: 00 01-31 04:59 :00 No [id number] 1mg Take 1 tablet by mouth in the morning for 30 days. [facility] foLIC acid 1 mg tablet 12-31 00:00: 00 01-31 04:59 :00 No [id number] 1mg Take 1 tablet by mouth in the morning for 30 days. [facility] metFORMIN 500 mg tablet 12-30 00:00: 00 Yes [id number] 500mg Take 1 tablet by mouth in the morning and 1 tablet in the evening. Take with meals. [facility] metFORMIN 500 mg tablet 12-30 00:00: 00 Yes [id number] 500mg Take 1 tablet by mouth in the morning and 1 tablet in the evening. Take with meals. [facility] metFORMIN 500 mg tablet 12-30 00:00: 00 Yes [id number] 500mg Take 1 tablet by mouth in the morning and 1 tablet in the evening. Take with meals. [facility] metFORMIN 500 mg tablet 12-30 00:00: 00 Yes [id number] 500mg Take 1 tablet by mouth in the morning and 1 tablet in the evening. Take with meals. [facility] metFORMIN 500 mg tablet 12-30 00:00: 00 Yes [id number] 500mg Take 1 tablet by mouth in the morning and 1 tablet in the evening. Take with meals. [facility] metFORMIN 500 mg tablet 12-30 00:00: 00 Yes [id number] 500mg Take 1 tablet by mouth in the morning and 1 tablet in the evening. Take with meals. [facility] aspirin chewable tablet 81 mg 12-29 14:00: 00 Yes 81mg 81 mg, Oral, DAILY, First dose on 12/29/21 at 0900, Until Discontinu ed, Routine [facility] sulfur hexafluorid e microsphr (LUMASON) injection 5 mL 12-29 13:45: 00 12-29 13:45 :00 No [id number] 5mL 5 mL, Intravenou s, ONCE, 1 dose, On 12/29/21 at 0845, Routine
outreach team member approving Restricted medication : STEFANIE GORMAN [facility] enoxaparin (LOVENOX) injection 40 mg 12-29 13:00: 00 Yes 40mg 40 mg, Subcutaneo us, Q24H, First dose on 12/29/21 at 0800, Until Discontinu ed, Routine [facility] Sliding Scale Insulin - Lispro (HumaLOG) + Fsbg Testing 12-29 13:00: 00 Yes Subcutaneo us, TID MEALS+HS, First dose on 12/29/21 at 0800, Until Discontinu ed, Routine [facility] diazePAM (VALIUM) injection 10 mg 12-29 05:30: 00 12-29 04:40 :00 No 10mg 10 mg, Intravenou s, ONCE, 1 dose, On 12/29/21 at 0030, Routine [facility] diazePAM (VALIUM) injection 10 mg 12-29 04:15: 00 12-29 03:17 :00 No 10mg 10 mg, Intravenou s, ONCE, 1 dose, On 12/28/21 at 2315, Routine [facility] diazePAM (VALIUM) injection 5 mg 12-29 03:45: 01 Yes 5mg 5 mg, Intravenou s, QIDPRN, Starting on 12/28/21 at 2245, Until Discontinu ed, Routine, Seizures, Agitation [facility] foLIC acid (FOLATE) tablet 1 mg 12-29 03:45: 00 Yes 1mg 1 mg, Oral, DAILY, First dose on 12/28/21 at 2245, Until Discontinu ed, Routine [facility] thiamine (VITAMIN B1) tablet 100 mg 12-29 03:45: 00 Yes 100mg 100 mg, Oral, DAILY, First dose (after last modificati on) on 12/28/21 at 2245, Until Discontinu ed, Routine [facility] glucagon (GLUCAGEN DIAGNOSTIC KIT) injection 1 mg 12-29 03:42: 19 Yes 1mg 1 mg, Intramuscu lar, PRN, Starting on 12/28/21 at 2242, Until Discontinu ed, JACIEL, Blood Glucose < or = 70 mg/dL and patient is unable to swallow or has mental changes. [facility] dextrose 10% (D10W) bolus infusion 250 mL 12-29 03:42: 19 Yes 250mL 250 mL, IV Infusion, PRN - SEE INSTRUCTIO NS, Administer over 60 Minutes, Other, If blood glucose is < or = 70 mg/dL and patient is unable to swallow or has mental status changes, Starting on 12/28/21 at 2242
If blood glucose is [...] blood glucose is < 80 mg/dL, repeat.
[facility] LORazepam (ATIVAN) injection 1 mg 12-29 03:30: 00 12-29 02:32 :00 No 1mg 1 mg, Intravenou s, ONCE, 1 dose, On 12/28/21 at 2230, Routine
Is the medication being used for status epilepticu s? No [facility] oxazepam (SERAX) capsule 15 mg 12-29 00:28: 20 Yes 15mg 15 mg, Oral, Q4HPRN, Starting on 12/28/21 at 1928, Until Discontinu ed, Routine, Only while awake for DBP equal to or greater than 100, HR equal to or greater than 100. [facility] ondansetron (ZOFRAN (PF)) injection 4 mg 12-29 00:23: 47 Yes 4mg 4 mg, Slow IV Push, Q6HPRN, Starting on 12/28/21 at 1923, Until Discontinu ed, Routine, Nausea and Vomiting (N/V) [facility] acetaminoph en (TYLENOL) tablet 650 mg 12-29 00:23: 37 Yes 650mg 650 mg, Oral, Q6HPRN, Starting on 12/28/21 at 1923, Until Discontinu ed, Routine, Pain (scale 1-3), Temp > 38.5 C [facility] chlordiazeP OXIDE (LIBRIUM) capsule 25 mg 12-28 23:15: 00 12-28 23:24 :00 No 25mg 25 mg, Oral, ONCE, 1 dose, On 12/28/21 at 1815, JACIEL [facility] NaCl 0.9% (NS) bolus infusion 2,000 mL 12-28 22:45: 00 12-28 23:18 :00 No 2000mL at 999 mL/hr, 2,000 mL, IV Infusion, ONCE, 1 dose, On 12/28/21 at 1745, JACIEL [facility] LORazepam (ATIVAN) injection 1 mg 12-28 20:45: 00 12-28 20:49 :00 No 1mg 1 mg, Slow IV Push, ONCE, 1 dose, On 12/28/21 at 1545, STAT
Is the medication being used for status epilepticu s? No [facility] acetaminoph en (TYLENOL) 500 mg tablet 10-06 00:00: 00 Yes 500mg Take 1 Tab by mouth every 6 (six) hours as needed for Pain. [facility] acetaminoph en (TYLENOL) 500 mg tablet 10-06 00:00: 00 Yes 500mg Take 1 Tab by mouth every 6 (six) hours as needed for Pain. [facility] acetaminoph en (TYLENOL) 500 mg tablet 10-06 00:00: 00 Yes 500mg Take 1 Tab by mouth every 6 (six) hours as needed for Pain. [facility] acetaminoph en (TYLENOL) 500 mg tablet 10-06 00:00: 00 Yes 500mg Take 1 Tab by mouth every 6 (six) hours as needed for Pain. [facility] acetaminoph en (TYLENOL) 500 mg tablet 10-06 00:00: 00 Yes 500mg Take 1 Tab by mouth every 6 (six) hours as needed for Pain. [facility] acetaminoph en (TYLENOL) 500 mg tablet 10-06 00:00: 00 Yes 500mg Take 1 Tab by mouth every 6 (six) hours as needed for Pain. [facility] Vital Signs Vital Name Observation Time Observation Value Comments S tyrese Systolic blood pressure 2022-11-11 20:31:31 116 mm[Hg] [facility] Diastolic blood pressure 2022-11-11 20:31:31 77 mm[Hg] [facility] Heart rate 2022-11-11 20:31:31 84 /min [facility] Respiratory rate 2022-11-11 20:31:31 12 /min [facility] Oxygen saturation in Arterial blood by Pulse oximetry 2022-11-11 20:31:31 90 /min [facility] Body temperature 2022-11-11 18:49:00 37.11 Theresa [facility] Body height 2022-11-11 18:49:00 160 cm [facility] Body weight 2022-11-11 18:49:00 68.04 kg [facility] BMI 2022-11-11 18:49:00 26.57 kg/m2 [facility] Body temperature 2022-08-11 14:00:00 36.5 Theresa [facility] Systolic blood pressure 2022-08-11 10:00:00 116 mm[Hg] [facility] Diastolic blood pressure 2022-08-11 10:00:00 71 mm[Hg] [facility] Heart rate 2022-08-11 10:00:00 70 /min [facility] Respiratory rate 2022-08-11 10:00:00 16 /min [facility] Body weight 2022-08-11 10:00:00 65.499 kg [facility] BMI 2022-08-11 10:00:00 25.58 kg/m2 [facility] Oxygen saturation in Arterial blood by Pulse oximetry 2022-08-11 10:00:00 100 /min [facility] Body height 2022-08-10 22:12:00 160 cm [facility] Systolic blood pressure 2022-04-06 16:00:00 125 mm[Hg] [facility] Diastolic blood pressure 2022-04-06 16:00:00 75 mm[Hg] [facility] Heart rate 2022-04-06 16:00:00 87 /min [facility] Respiratory rate 2022-04-06 16:00:00 22 /min [facility] Oxygen saturation in Arterial blood by Pulse oximetry 2022-04-06 16:00:00 98 /min [facility] Body temperature 2022-04-06 14:41:00 37 Theresa [facility] Body height 2022-04-06 14:41:00 160 cm [facility] Body weight 2022-04-06 14:41:00 63.504 kg [facility] BMI 2022-04-06 14:41:00 24.80 kg/m2 [facility] Systolic blood pressure 2022-01-20 02:27:00 121 mm[Hg] [facility] Diastolic blood pressure 2022-01-20 02:27:00 75 mm[Hg] [facility] Heart rate 2022-01-20 02:27:00 79 /min [facility] Respiratory rate 2022-01-20 02:27:00 12 /min [facility] Oxygen saturation in Arterial blood by Pulse oximetry 2022-01-20 02:27:00 98 /min [facility] Body temperature 2022-01-19 22:19:00 36.44 Theresa [facility] Body weight 2022-01-19 22:19:00 60.328 kg [facility] BMI 2022-01-19 22:19:00 23.56 kg/m2 [facility] Systolic blood pressure 2021-12-30 20:52:00 134 mm[Hg] [facility] Diastolic blood pressure 2021-12-30 20:52:00 76 mm[Hg] [facility] Heart rate 2021-12-30 20:52:00 67 /min [facility] Body temperature 2021-12-30 20:26:00 36.67 Theresa [facility] Oxygen saturation in Arterial blood by Pulse oximetry 2021-12-30 20:26:00 99 /min [facility] Respiratory rate 2021-12-30 16:21:00 18 /min [facility] Body weight 2021-12-30 08:27:00 60.464 kg [facility] BMI 2021-12-30 08:27:00 23.61 kg/m2 [facility] Body height 2021-12-29 01:29:00 160 cm [facility] Procedures Procedure Date / Time Performed Performing Clinician Source MAGNESIUM 2022-11-11 19:05:00 Hemant Klein [facility] BASIC METABOLIC PANEL (NA, K, CL, CO2, GLUCOSE, BUN, CREATININE, CA) 2022-11-11 19:05:00 Hemant Klein [facility] ETHANOL 2022-11-11 19:05:00 Hemant Klein [facility] CBC WITH DIFF 2022-11-11 19:05:00 Hemant Klein [facility] POCT GLUCOSE (AUTOMATED) 2022-08-11 13:36:00 Arvind Prado [facility] PHOSPHORUS 2022-08-11 10:35:00 Jessica Prado [facility] MAGNESIUM 2022-08-11 10:35[facility] 2022-08-11 10:35:00 Jessica Prado [facility] COMP. METABOLIC PANEL ([id number]) 2022-08-11 10:35[facility] 2022-08-11 10:35:00 Oswald Murphy [facility] POCT GLUCOSE (AUTOMATED) 2022-08-11 02:15:00 Arvind Prado [facility] POCT GLUCOSE (AUTOMATED) 2022-08-10 23:10:00 Arvind Prado [facility] POCT GLUCOSE (AUTOMATED) 2022-08-10 18:20:00 Arvind Prado [facility] POCT GLUCOSE (AUTOMATED) 2022-08-10 14:11:00 Arvind Prado [facility] POCT GLUCOSE (AUTOMATED) 2022-08-10 10:59:00 Gopal Driscoll [facility] COVID-19 (ID NOW RAPID TESTING) 2022-08-10 07:17:00 Rayray Driscoll [facility] LAB ONLY COVID INTERPRETATION 2022-08-10 07:17:00 Rayray Driscoll [facility] HB ECG ROUTINE & RHYTHM STRIP 2022-08-10 06:03:48 Rayray Driscoll [facility] URINALYSIS 2022-08-10 05:46:00 Rayray Driscoll [facility] URINE DRUG (IMMUNOASSAY) - COMPREHENSIVE DRUG SCREEN W/O REFLEX 2022-08-10 05:45:00 Rayray Driscoll [facility] CREATINE KINASE 2022-08-10 05:16:00 [facility] 2022-08-10 05:16:00 Rayray Driscoll [facility] MAGNESIUM 2022-08-10 05:16:00 Rayray Driscollkg [facility] TROPONIN I 2022-08-10 05:16:00 [facility] [facility] COMP. METABOLIC PANEL (30328) 2022-08-10 05:16:00 Rayray Driscoll [facility] ETHANOL 2022-08-10 05:16:00 Rayray Driscoll [facility] CBC WITH DIFF 2022-08-10 05:16[facility]BNP 2022-08-10 05:16:00 Rayray Driscoll [facility] CRITICAL CARE 2022-08-10 04:52:00 Rayray Driscoll [facility] XR CHEST 1 VW 2022-04-06 14:51:50 Diya Chowdhury [facility] LIPASE 2022-04-06 14:42:00 [facility]22-04-06 14:42:00 [facility] COMP. METABOLIC PANEL (36247) 2022-04-06 14:42:00 Diya Chowdhury [facility] CBC WITH DIFF 2022-04-06 14:42:00 Diya Chowdhury [facility] PROTHROMBIN TIME / INR 2022-04-06 14:42:00 Diya Chowdhury [facility] ACTIVATED PARTIAL THRMPLAS NELDA 2022-04-06 14:42:00 Diya Chowdhury [facility] LACTIC ACID WHOLE BLOOD 2022-01-20 00:22:00 Leticia Baldwin [facility] URINE DRUG (IMMUNOASSAY) - COMPREHENSIVE DRUG SCREEN 2022-01-19 23:10:00 Leticia Baldwin [facility] URINALYSIS 2022-01-19 23:10:00 Leticia Baldwin [facility] TROPONIN I 2022-01-19 23:00:00 Leticia Baldwin [facility] COMP. METABOLIC PANEL (35545) 2022-01-19 23:00:00 Leticia Baldwin [facility] LITHIUM 2022-01-19 23:00:00 [facility]22-01-19 23:00:00 Leticia Baldwin [facility] CBC WITH DIFF 2022-01-19 23:00:00 Leticia Baldwin [facility] COVID-19 (ID NOW RAPID TESTING) 2022-01-19 23:00:00 Leticia Baldwin [facility] CT HEAD WO CONTRAST 2022-01-19 22:49:00 Leticia Baldwin [facility] XR CHEST 1 VW 2022-01-19 22:41:00 Leticia Baldwin [facility] POCT GLUCOSE (AUTOMATED) 2022-01-19 22:25:00 Leticia Baldwin [facility] POCT GLUCOSE (AUTOMATED) 2021-12-30 21:55:00 Arvind rPado [facility] POCT GLUCOSE (AUTOMATED) 2021-12-30 16:21:00 Arvind Prado [facility] POCT GLUCOSE (AUTOMATED) 2021-12-30 12:30:00 Arvind Prado [facility] HEPATIC FUNCTION PANEL (85357) (ALB,T.PRO,BILI T,BU/BC,ALT,AST,ALK PHOS) 2021-12-30 09:28:00 Maira Gaitan [facility] POCT GLUCOSE (AUTOMATED) 2021-12-30 02:11:00 Arvind Prado [facility] POCT GLUCOSE (AUTOMATED) 2021-12-29 21:41:00 Arvind Prado [facility] POCT GLUCOSE (AUTOMATED) 2021-12-29 16:37:00 Arvind Prado [facility] TRANSTHORACIC ECHO (TTE) COMPLETE W/ CONTRAST 2021-12-29 13:05:00 Jessica Prado [facility] POCT GLUCOSE (AUTOMATED) 2021-12-29 12:41:00 Arvind Prado [facility] TROPONIN I 2021-12-29 09:42:00 Jessica Prado [facility] TROPONIN I 2021-12-29 04:55:00 Jessica Prado [facility] HEAD WO CONTRAST 2021-12-28 21:18:22 Poppy Renteria [facility] AMMONIA, PLASMA 2021-12-28 21:00:00 Pia Renteria [facility] COVID-19 (ID NOW RAPID TESTING) 2021-12-28 20:42:00 Pia Renteria [facility] LAB ONLY COVID INTERPRETATION 2021-12-28 20:42:00 Pia Renteria [facility] URINE DRUG (IMMUNOASSAY) - COMPREHENSIVE DRUG SCREEN W/O REFLEX 2021-12-28 20:42:00 Pia Renteria [facility] URINALYSIS 2021-12-28 20:40:00 [facility] 2021-12-28 20:40:00 Corina Renteria [facility] TROPONIN I 2021-12-28 20:40:00 Pia Renteria [facility] THYROID STIMULATING HORMONE 2021-12-28 20:40:00 Jessica Prado [facility] COMP. METABOLIC PANEL (02817) 2021-12-28 20:40:00 Pia Renteria [facility] LIPID PANEL (22100)(TOTAL CHOLESTEROL, TRIGLYCERIDES, HDL) 2021-12-28 20:40:00 Demetrius Langford [facility] ETHANOL 2021-12-28 20:40:00 Demetrius Langford [facility] CBC WITH DIFF 2021-12-28 20:40:00 Pia Renteria [facility] GLYCOSYLATED HEMOGLOBIN (A1C) 2021-12-28 20:40:00 Jessica Prado [facility] PROTHROMBIN TIME / INR 2021-12-28 20:40:00 Lesly Renteria [facility] XR CHEST 1 VW 2021-12-28 20:16:00 Pia Renteria [facility] HB ECG ROUTINE & RHYTHM STRIP 2021-12-28 20:04:59 Pia Renteria [facility] Encounters Start Date/Time End Date/Time Encounter Type Admission Type Attending [facility] Facility Care Department Encounter ID Source 2021-09-17 16:45:00 Inpatient [facility] [id number] [facility] 2020-06-06 16:07:00 Inpatient [facility] [id number] [facility] 2020-06-06 06:20:00 Inpatient [facility] [id number] [facility] 2020-06-05 19:35:00 Inpatient [facility] [id number] [facility] 2020-05-23 19:53:00 Inpatient [facility] [id number] [facility] 2020-05-23 19:53:00 Inpatient [facility] [id number] [facility] 2022-11-11 13:50:00 2022-11-11 16:07:[address] [facility] [id number] [facility] 2022-11-11 13:50:00 2022-11-11 16:07:[address] [facility] [id number] [id number] [id number] [facility] 2022-10-14 20:59:00 2022-10-14 20:59:00 Emergency [facility] [id number] [facility] 2022-10-14 20:59:00 2022-10-14 20:59:00 Emergency Emergency Pan Pinto [facility] [id number] [facility] 2022-08-09 22:59:00 2022-08-11 13:02:00 Outpatient X JESSICA PRADO [facility] [id number] [facility] 2022-08-09 22:59:00 2022-08-11 13:02:00 Emergency Rayray Driscoll Jelani Edionwe[facility] [id number] 350.1.13.10 [id number] [id number] [facility] 2022-04-06 09:38:00 2022-04-06 11:42:00 Emergency X DIYA CHOWDHURY [facility] ERT [id number] [facility] 2022-04-06 09:38:00 2022-04-06 11:42:00 Emergency Diya Chowdhury [facility] [id number] 350.1.13.10 4.2.7.2.686 [id number] [facility] 2022-03-07 12:38:00 2022-03-07 12:38:00 Emergency [facility] [id number] [address] [place] [address] 2022-03-07 12:38:00 2022-03-07 12:38:00 Emergency Emergency Fidel Cuellar [facility] [id number] [facility] 2022-01-19 17:18:00 2022-01-19 22:00:00 Emergency X DIRK YARBROUGH [facility] ERT [id number] [facility] 2022-01-19 17:18:00 2022-01-19 22:00:00 Emergency Leticia Baldwin Julio C [facility] [id number] 350.1.13.10 [id number] [id number] [facility] 2021-12-31 00:00:00 2021-12-31 00:00:00 Transition of Care Faye Portillo [id number] 350.1.13.10 4.2.7.2.686 [id number] [facility] 2021-12-28 14:53:00 2021-12-30 17:42:00 Inpatient X JESSICA PRADO [facility] MARGO [id number] [facility] 2021-12-28 14:53:00 2021-12-30 17:42:00 Hospital Encounter Pia Renteria Jelani [facility] [id number] 350.1.13.10 [id number] [id number] [facility] 2021-09-17 16:47:00 2021-09-17 16:47:00 Emergency [facility] [id number] [facility] 2020-06-06 16:07:00 2020-06-06 16:07:00 Emergency [facility] [id number] [facility] Results Test Description Test Time Test Comments Results Resul t Comments Source ETHANOL 2022-11-11 19:45:56 ALCOHOL<10mg/dL0 11/11/2022 2[facility] [id number] Toxic>100 Depression of LAP REGULATOR>400 [facility] 19:41:47* Test Item Value Reference Range Interpretation Comme nts MAGNESIUM (test code = 4104959693) 1.8 mg/dL 1.7-2.4 Lab Interpretation (test cod e = 39361-5) Normal [facility] WITH [id number] 19:25:26* Test Item Value Reference Range Interpretation Comme nts WBC (test code = 6690-2) 6.82 See_Comment [Automated messa ge] The system which generated this result transmitted reference range: 4.20 - 10.70 10*3/?L. The reference range was not used to interpret this result as normal/abnormal. RBC (test code = 789-8) 4.98 See_Comment [Automated messa ge] The system which generated this result transmitted reference range: 4.26 - 5.52 10*6/?L. The reference range was not used to interpret this result as normal/abnormal. HGB (test code = 718-7) 15.7 g/dL 12.2-16.4 HCT (test code = 4544-3) 46.3 % 38.4-49.3 MCV (test code = 787-2) 93.0 fL 81.7-95.6 MCH (test code = 785-6) 31.5 pg 26.1-32.7 MCHC (test code = 786-4) 33.9 g/dL 31.2-35.0 RDW-SD (test code = 70184-3) 46.0 fL 38.5-51.6 RDW-CV (test code = 788-0) 13.5 % 12.1-15.4 PLT (test code = 777-3) 237 See_Comment [Automated messa ge] The system which generated this result transmitted reference range: 150 - 328 10*3/?L. The reference range was not used to interpret this result as normal/abnormal. MPV (test code = 25559-8) 8.9 fL 9.8-13.0 L NRBC/100 WBC (test code = 7543464013) 0.0 See_Comment [Automated [employer]] The system which generated this result transmitted reference range: 0.0 - 10.0 /100 WBCs. The reference range was not used to interpret this result as normal/abnormal. NRBC x10^3 (test code = 8575065902) See_Comment [Automated messa ge] The system which generated this result transmitted reference range: 10*3/?L. The reference range was not used to interpret this result as normal/abnormal. GRAN MAT (NEUT) % (test code = 770-8) 71.2 % IMM GRAN % (test code = 9170214100) 0.30 % LYMPH % (test code = 736-9) 18.2 % MONO % (test code = 5905-5) 8.4 % EOS % (test code = 713-8) 1.0 % BASO % (test code = 706-2) 0.9 % GRAN MAT x10^3(ANC) (test code = 1816458081) 4.86 10*3/uL 1.99-6.95 IMM GRAN x10^3 (test code = 1547452831) 0.00-0.06 LYMPH x10^3 (test code = 731-0) 1.24 10*3/uL 1.09-3.23 MONO x10^3 (test code = 742-7) 0.57 10*3/uL 0.36-1.02 EOS x10^3 (test code = 711-2) 0.07 10*3/uL 0.06-0.53 BASO x10^3 (test code = 704-7) 0.06 10*3/uL 0.01-0.09 Lab Interpretation (test code = 85853-4) [facility] Rflx Cult/Ztjmq1162-12-21 22:20:00* Test Item Value Reference Range Interpretation Comme nts Color,Urine (test code = UCOL) Yellow Yellow Clarity,Urine (test code = UCLAR) Clear Clear Ph, Urine (test code = UPH) 7.0 5.0-9.0 N Specific [place],Urine (test code = USG) 1.020 1.005-1.030 N Blood,Urine (test code = UBLD) Negative mg/dL Negative Protein,Urine (test code = UPRO) Negative mg/dL Negative Glucose,Urine (UA) (test cod e = UGLU) Negative mg/dL Negative Ketones,Urine (test code = UKET) Negative mg/dL Negative Nitrate,Urine (test code = UNIT) Negative Negative Bilirubin,Urine (test code = UBIL) Negative mg/dL Negative Urobilinogen,Urine (test cod e = UURO) 1.0 E.U./dL Normal Leukocyte Esterase,Urine (te st code = ULEU) Negative mg/dL Negative Drug Screen,[id number] 22:20:00* Test Item Value Reference Range Interpretation Comme nts PCP Phencyclidine Screen,Uri ne (test code = PCPU) Negative Negative Amphetamine Screen,Urine (te st code = AMPU) Negative Negative Methadone Screen,Urine (test code = METHU) Negative Negative Opiate Screen,Urine (test co de = UOPIS) Negative Negative Barbituates Screen,Urine (te st code = BARBU) Negative Negative Benzodiazepines Screen,Urine (test code = UBENZS) Negative Negative Cocaine Screen,Urine (test c ode = UCOCS) Negative Negative Cannabinoid Screen,Urine (te st code = UTHCS) Negative Negative Propoxyphene Screen, Urine ( test code = UPROP) Negative Negative Complete Blood Count Auto [id number] 21:21:00* Test Item Value Reference Range Interpretation Comme nts White Blood Count (test code = WBCT) 7.6 x10 3/uL 4.4-10.5 N Red Blood Count (test code = RBC) 4.50 x10 6/uL 4.10-5.70 N Hemoglobin (test code = HGBT) 13.9 g/dL 13.4-17.4 N Hematocrit (test code = HCTT) 41.3 % 38.7-52.0 N Mean Corpuscular Volume (susan t code = MCV) 91.80 fL 80.00-100.00 N Mean Corpuscular Hemoglobin (test code = MCH) 30.9 pg 27.0-32.5 N Mean Corpuscular HGB Conc (t est code = MCHC) 33.70 g/dL 32.00-37.50 N RDW Coefficient of Variation (test code = RDWCV) 13.9 % 11.5-14.5 N Platelet Count (test code = PLTT) 276 x10 3/uL 140.0-440.0 N Mean Platelet Volume (test c ode = MPV) 8.7 fL Immature Granulocytes % (Aut o) (test code = IMMGRAN%) 0.3 % 0.0-5.0 N Neutrophils % (Auto) (test c ode = NE%) 66.1 % 36.0-70.0 N Lymphocytes % (Auto) (test c ode = LY%) 25.8 % 12.0-44.0 N Monocytes % (Auto) (test cod e = MO%) 7.0 % 0.0-11.0 N Eosinophils % (Auto) (test c ode = EO%) 0.3 % 0.0-7.0 N Basophils % (Auto) (test cod e = BA%) 0.5 % 0.0-2.0 N Immature Granulocytes # (Aut o) (test code = IMMGRAN#) 0.02 x10 3/uL Neutrophils # (Auto) (test c ode = NE#) 5.0 x10 3/uL 1.6-7.4 N Lymphocytes # (Auto) (test c ode = LY#) 1.96 x10 3/uL 0.50-4.60 N Monocytes # (Auto) (test cod e = MO#) 0.53 x10 3/uL 0.00-1.20 N Eosinophils # (Auto) (test c ode = EO#) 0.02 x10 3/uL 0.00-0.74 N Basophils # (Auto) (test cod e = BA#) 0.04 x10 3/uL 0.00-0.21 N nRBC Abs (test code = NRBCA) 0 nRBC Pct (test code = NRBCP) 0 % Comprehensive Metabolic [id number] 21:21:00* Test Item Value Reference Range Interpretation Comme nts SODIUM (test code = NA) 139.0 mmol/L 136.0-145.0 N Potassium,K (test code = K) 4.0 mmol/L 3.0-5.1 N Chloride (test code = CL) 108 mmol/L 98-107 H Carbon Dioxide (test code = CO2) 26 mmol/L 20-31 N Anion Gap (test code = GAP) 5 mmol/L 5-15 N Blood Urea Nitrogen (test code = BUN) 13 mg/dL 9-23 N Creatinine (test code = CREATT) 0.75 mg/dL 0.55-1.02 N Creatinine Clr Calc Pharmacy (test code = CRCLPHA) 92.53 mL/min Estimated Glomerular Filt Rate (test code = EGFR.XX) 109 See_Comment Reported eGFR is based on the CKD-EPI 2020 equation thatdoes not use a race coefficient. Additional information canbe found at:[email or web address]_ egfr_summary_flyer 5.pdf ([email or web address].[email or web address]) [Automated message] The system which generated this result transmitted reference range: >=90 ml/min/1.73m2. The reference range was not used to interpret this result as normal/abnormal. BUN/Creatinine Ratio (test code = BCRATIO) 17 ratio 10-20 N Glucose (test code = GLU) 128 mg/dL 74-106 H Osmolality,Calculated (test code = OSMOC) 289.6 Calcium (test code = CA) 10.7 mg/dL 8.3-10.6 H Bilirubin,Total (test code = BILIT) 0.3 mg/dL 0.2-1.1 N Aspartate Amino Transferase (test code = AST) 16 U/L 0-34 N Alanine Aminotransferase (test code = ALT) 15 U/L 10-49 N Total Protein (test code = TP) 6.6 g/dL 5.7-8.2 N Albumin Level (test code = ALB) 4.2 g/dL 3.2-4.8 N Globulin (test code = GLOB) 2.4 mg/dL 2.3-3.5 N Albumin/Globulin Ratio (test code = AGRATIO) 1.8 ratio 0.8-2.0 N Alkaline Phosphatase (test code = ALP) 134 U/L 46-116 H Ethanol [id number] 21:21:00* Test Item Value Reference Range Interpretation Comme nts Ethanol (test code = ETOH) < 3 mg/dL The pharmacologi yudy response to blood alcohol levels mayvary from individual to individual. The fatal concentrationhas been reported to be >400mg/dL. POCT GLUCOSE (AUTOMATED)2022-08-11 13:40:35* Test Item Value Reference Range Interpretation Comme nts POCT GLU (test code = 4935001959) 121 mg/dL 70-110 H Lab Interpretation (test cod e = 86655-5) Abnormal [facility] GLUCOSE (AUTOMATED)2022-08-11 02:18:58* Test Item Value Reference Range Interpretation Comme nts POCT GLU (test code = 1084584275) 183 mg/dL 70-110 H Lab Interpretation (test cod e = 58214-0) Abnormal [facility] GLUCOSE (AUTOMATED)2022-08-10 23:16:11* Test Item Value Reference Range Interpretation Comme nts POCT GLU (test code = 4665646472) 176 mg/dL 70-110 H Lab Interpretation (test cod e = 95358-8) Abnormal [facility] GLUCOSE (AUTOMATED)2022-08-10 18:22:51* Test Item Value Reference Range Interpretation Comme nts POCT GLU (test code = 5821640112) 165 mg/dL 70-110 H Lab Interpretation (test cod e = 18643-7) Abnormal [facility] GLUCOSE (AUTOMATED)2022-08-10 14:18:05* Test Item Value Reference Range Interpretation Comme nts POCT GLU (test code = 8951141424) 138 mg/dL 70-110 H Lab Interpretation (test cod e = 97132-0) Abnormal [facility] GLUCOSE (AUTOMATED)2022-08-10 11:01:21* Test Item Value Reference Range Interpretation Comme nts POCT GLU (test code = 2271026717) 143 mg/dL 70-110 H Lab Interpretation (test cod e = 95568-2) [facility] [id number] 06:51:18* Test Item Value Reference Range Interpretation Comme nts TROPONIN I (test code = 4262675419) 0.008 ng/mL <=0.034 JUAN ALBERTO (test code = JUAN ALBERTO) [...] patient's use of biotin. Lab Interpretation (test code = 73495-7) Normal [facility] [id number] 06:47:37* Test Item Value Reference Range Interpretation Comme [facility] NT-proBNP (test code = 0712346794) 37 pg/mL <=125 JUAN ALBERTO (test code = JUAN ALBERTO) Biotin has been reported to cause a negative bias, interpret results relative to patient's use of biotin. Lab Interpretation (test code = 73094-3) Normal [facility]-19 06:25:52 ALCOHOL<10mg/dL08/10/2022 12:25 [facility] Pjlbxhty47-159 Toxic>100 Depression of LAP REGULATOR>400 F[facility]ities [facility]COMP. METABOLIC PANEL (06310)2022-08-10 06:19:15* Test Item Value Reference Range Interpretation Comme nts NA (test code = 3065556938) 135 mmol/L 135-145 K (test code = 0362633643) 4.3 mmol/L 3.5-5.0 CL (test code = 1262144073) 98 mmol/L 98-108 CO2 TOTAL (test code = 9307560510) 30 mmol/L 23-31 AGAP (test code = 5264800676) 7 2-16 BUN (test code = 4592154341) 11 mg/dL 7-23 GLUCOSE (test code = 4176936873) 153 mg/dL 70-110 H CREATININE (test code = 5396119960) 0.77 mg/dL 0.60-1.25 TOTAL BILI (test code = 2578191253) 0.9 mg/dL 0.1-1.1 CALCIUM (test code = 4181144796) 10.0 mg/dL 8.6-10.6 T PROTEIN (test code = 8782221632) 7.7 g/dL 6.3-8.2 ALBUMIN (test code = 5968034450) 4.6 g/dL 3.5-5.0 ALK PHOS (test code = 9797841301) 92 U/L 34-122 ALTv (test code = 1742-6) 35 U/L 5-50 AST(SGOT) (test code = 0792998023) 42 U/L 13-40 H eGFR (test code = 2865759208) 106.1 mL/min/1.73m2 JUAN ALBERTO (test code = JUAN [...] imaging tests). Lab Interpretation (test code = 43741-4) Abnormal [facility]23-[facility]-19 06:19:15* Test Item Value Reference Range Interpretation Comme nts MAGNESIUM (test code = 0221817491) 2.2 mg/dL 1.7-2.4 Lab Interpretation (test cod e = 74596-2) [facility]23-02-19 06:18:55* Test Item Value Reference Range Interpretation Comme nts LIPASE (test code = 5238436819) 18 U/L 0-220 Lab Interpretation (test cod e = 65814-6) Normal [facility]AT[facility] [id number] 06:18:55* Test Item Value Reference Range Interpretation Comme nts CK (test code = 5826156567) 174 U/L 33-194 Lab Interpretation (test cod e = 97434-2) [facility] WITH [id number] 06:02:35* Test Item Value Reference Range Interpretation Comme nts WBC (test code = 6690-2) 7.50 See_Comment [Automated [employer]] The system which generated this result transmitted reference range: 4.20 - 10.70 10*3/?L. The reference range was not used to interpret this result as normal/abnormal. RBC (test code = 789-8) 4.80 See_Comment [Automated [employer]] The system which generated this result transmitted reference range: 4.26 - 5.52 10*6/?L. The reference range was not used to interpret this result as normal/abnormal. HGB (test code = 718-7) 14.7 g/dL 12.2-16.4 HCT (test code = 4544-3) 45.4 % 38.4-49.3 MCV (test code = 787-2) 94.6 fL 81.7-95.6 MCH (test code = 785-6) 30.6 pg 26.1-32.7 MCHC (test code = 786-4) 32.4 g/dL 31.2-35.0 RDW-SD (test code = 36559-0) 50.2 fL 38.5-51.6 RDW-CV (test code = 788-0) 14.3 % 12.1-15.4 PLT (test code = 777-3) 241 See_Comment [Automated [employer]] The system which generated this result transmitted reference range: 150 - 328 10*3/?L. The reference range was not used to interpret this result as normal/abnormal. MPV (test code = 65339-9) 8.6 fL 9.8-13.0 L NRBC/100 WBC (test code = 9306033300) 0.0 See_Comment [Automated [employer]] The system which generated this result transmitted reference range: 0.0 - 10.0 /100 WBCs. The reference range was not used to interpret this result as normal/abnormal. NRBC x10^3 (test code = 7856649330) See_Comment [Automated [employer]] The system which generated this result transmitted reference range: 10*3/?L. The reference range was not used to interpret this result as normal/abnormal. GRAN MAT (NEUT) % (test code = 770-8) 63.9 % IMM GRAN % (test code = 9866331911) 0.50 % LYMPH % (test code = 736-9) 17.6 % MONO % (test code = 5905-5) 16.5 % EOS % (test code = 713-8) 0.7 % BASO % (test code = 706-2) 0.8 % GRAN MAT x10^3(ANC) (test code = 6165984061) 4.79 10*3/uL 1.99-6.95 IMM GRAN x10^3 (test code = 6572033844) 0.04 10*3/uL 0.00-0.06 LYMPH x10^3 (test code = 731-0) 1.32 10*3/uL 1.09-3.23 MONO x10^3 (test code = 742-7) 1.24 10*3/uL 0.36-1.02 H EOS x10^3 (test code = 711-2) 0.05 10*3/uL 0.06-0.53 L BASO x10^3 (test code = 704-7) 0.06 10*3/uL 0.01-0.09 Lab Interpretation (test code = 71949-3) Abnormal [facility] [id number] 15:15:32* Test Item Value Reference Range Interpretation Comments TROPONIN I (test code = 5072330557) 0.007 ng/mL See_Comment [Automated message] The system which generated this result transmitted reference range: <=0.034. The reference range was not used to interpret this result as normal/abnormal. JUAN ALBERTO (test code = JUAN ALBERTO) [...] patient's use of biotin. Lab Interpretation (test code = 96088-1) Normal [facility]iscoa[facility]08:29* Test Item Value Reference Range Interpretation Comme [facility] APTT Patient (test code = 3173-2) See_Comment [Automated message] The system which generated this result transmitted reference range: 23 - 38 Seconds. The reference range was not used to interpret this result as normal/abnormal. JUAN ALBERTO (test code = JUAN ALBERTO) The [facility] patient population mean normal value for aPTT is 30 seconds. Lab Interpretation (test code = 04551-3) [facility] / [id number] 15:06:28* Test Item Value Reference Range Interpretation Comme [facility] PROTIME PATIENT (test code = 5964-2) See_Comment [Automated [employer] ge] The system which generated this result transmitted reference range: 12.0 - 14.7 Seconds. The reference range was not used to interpret this result as normal/abnormal. INR (test code = 6301-6) Normal INR <1.1; Warfarin Therapeutic range 2.0 to 3.0 or 2.5 to 3.5, depending upon the indications. Lab Interpretation (test code = 65623-2) [facility] METABOLIC PANEL (68878)2022-04-06 15:03:31* Test Item Value Reference Range Interpretation Comme nts NA (test code = 1430672372) 136 mmol/L 135-145 K (test code = 2328668502) 5.0 mmol/L 3.5-5 CL (test code = 8987753306) 104 mmol/L 98-108 CO2 TOTAL (test code = 2097829023) 21 mmol/L 23-31 L AGAP (test code = 1385249249) 2-16 BUN (test code = 4688856323) 11 mg/dL 7-23 GLUCOSE (test code = 9948770074) 162 mg/dL 70-110 H CREATININE (test code = 7861495348) 0.52 mg/dL 0.6-1.25 L TOTAL BILI (test code = 4512677473) 1.0 mg/dL 0.1-1.1 CALCIUM (test code = 7242342046) 9.3 mg/dL 8.6-10.6 T PROTEIN (test code = 3314189327) 7.4 g/dL 6.3-8.2 ALBUMIN (test code = 3166117960) 4.4 g/dL 3.5-5 ALK PHOS (test code = 1047536204) 134 U/L 34-122 H ALTv (test code = 1742-6) 17 U/L 5-50 AST(SGOT) (test code = 8691777180) 38 U/L 13-40 eGFR (test code = 5119868977) mL/min/1.73m2 JUAN ALBERTO (test code = JUAN [...] imaging tests). Lab Interpretation (test code = 32164-9) [facility]IP[facility], [id number] 15:03:31* Test Item Value Reference Range Interpretation Comme nts LIPASE (test code = 7052425138) 29 U/L 0-220 Lab Interpretation (test cod e = 46527-9) [facility] WITH [id number] 14:51:49* Test Item Value Reference Range Interpretation Comme nts WBC (test code = 6690-2) See_Comment [Automated [employer]] The system which generated this result transmitted reference range: 4.20 - 10.70 10*3/?L. The reference range was not used to interpret this result as normal/abnormal. RBC (test code = 789-8) See_Comment [Automated [employer]] The system which generated this result transmitted reference range: 4.26 - 5.52 10*6/?L. The reference range was not used to interpret this result as normal/abnormal. HGB (test code = 718-7) 14.0 g/dL 12.2-16.4 HCT (test code = 4544-3) 41.2 % 38.4-49.3 MCV (test code = 787-2) 93.8 fL 81.7-95.6 MCH (test code = 785-6) 31.9 pg 26.1-32.7 MCHC (test code = 786-4) 34.0 g/dL 31.2-35 RDW-SD (test code = 00569-0) 45.9 fL 38.5-51.6 RDW-CV (test code = 788-0) 13.3 % 12.1-15.4 PLT (test code = 777-3) See_Comment [Automated mess[employer] ge] The system which generated this result transmitted reference range: 150 - 328 10*3/?L. The reference range was not used to interpret this result as normal/abnormal. MPV (test code = 65675-7) 8.4 fL 9.8-13 L NRBC/100 WBC (test code = 8755730184) See_Comment [Automated [employer]] The system which generated this result transmitted reference range: 0.0 - 10.0 /100 WBCs. The reference range was not used to interpret this result as normal/abnormal. NRBC x10^3 (test code = 5027208844) See_Comment [Automated [employer]] The system which generated this result transmitted reference range: 10*3/?L. The reference range was not used to interpret this result as normal/abnormal. GRAN MAT (NEUT) % (test code = 770-8) 63.0 % IMM GRAN % (test code = 2715280886) 0.50 % LYMPH % (test code = 736-9) 25.2 % MONO % (test code = 5905-5) 9.8 % EOS % (test code = 713-8) 0.3 % BASO % (test code = 706-2) 1.2 % GRAN MAT x10^3(ANC) (test code = 3596000195) 3.73 10*3/uL 1.99-6.95 IMM GRAN x10^3 (test code = 9844088250) 0.03 10*3/uL 0-0.06 LYMPH x10^3 (test code = 731-0) 1.49 10*3/uL 1.09-3.23 MONO x10^3 (test code = 742-7) 0.58 10*3/uL 0.36-1.02 EOS x10^3 (test code = 711-2) 0.06-0.53 L BASO x10^3 (test code = 704-7) 0.07 10*3/uL 0.01-0.09 Lab Interpretation (test code = 56637-0) [facility]normal [facility], Urinalysis Rflx Cult/[id number] 13:53:00* Test Item Value Reference Range Interpretation Comme nts Color,Urine (test code = UCOL) Yellow Yellow Clarity,Urine (test code = UCLAR) Cloudy Clear A Ph, Urine (test code = UPH) 7.5 5.0-9.0 N Specific [place],Urine (test code = USG) 1.025 1.005-1.030 N Blood,Urine (test code = UBLD) Negative mg/dL Negative Protein,Urine (test code = UPRO) Negative mg/dL Negative Glucose,Urine (UA) (test cod e = UGLU) Negative mg/dL Negative Ketones,Urine (test code = UKET) Negative mg/dL Negative Nitrate,Urine (test code = UNIT) Negative Negative Bilirubin,Urine (test code = UBIL) Negative mg/dL Negative Urobilinogen,Urine (test cod e = UURO) 2.0 E.U./dL Normal A Leukocyte Esterase,Urine (te st code = ULEU) Negative mg/dL Negative UF REFLEXDrug Screen,[id number] 13:53:00* Test Item Value Reference Range Interpretation Comme nts PCP Phencyclidine Screen,Uri ne (test code = PCPU) Negative Negative Amphetamine Screen,Urine (te st code = AMPU) Negative Negative Methadone Screen,Urine (test code = METHU) Negative Negative Opiate Screen,Urine (test co de = UOPIS) Negative Negative Barbituates Screen,Urine (te st code = BARBU) Negative Negative Benzodiazepines Screen,Urine (test code = UBENZS) Negative Negative Cocaine Screen,Urine (test c ode = UCOCS) Negative Negative Cannabinoid Screen,Urine (te st code = UTHCS) Negative Negative Propoxyphene Screen, Urine ( test code = UPROP) Negative Negative Complete Blood Count Auto [id number] 12:58:00* Test Item Value Reference Range Interpretation Comme nts White Blood Count (test code = WBCT) 9.1 x10 3/uL 4.4-10.5 N Red Blood Count (test code = RBC) 4.80 x10 6/uL 4.10-5.70 N Hemoglobin (test code = HGBT) 15.6 g/dL 13.4-17.4 N Hematocrit (test code = HCTT) 46.1 % 38.7-52.0 N Mean Corpuscular Volume (susan t code = MCV) 96.00 fL 80.00-100.00 N Mean Corpuscular Hemoglobin (test code = MCH) 32.5 pg 27.0-32.5 N Mean Corpuscular HGB Conc (test code = MCHC) 33.80 g/dL 32.00-37.50 N RDW Coefficient of Variation (test code = RDWCV) 12.5 % 11.5-14.5 N Platelet Count (test code = PLTT) 283.0 x10 3/uL 140.0-440.0 N Mean Platelet Volume (test code = MPV) 8.6 fL Immature Granulocytes % (Aut o) (test code = IMMGRAN%) 0.4 % 0.0-5.0 N Neutrophils % (Auto) (test code = NE%) 68.5 % 36.0-70.0 N Lymphocytes % (Auto) (test code = LY%) 23.5 % 12.0-44.0 N Monocytes % (Auto) (test cod e = MO%) 6.7 % 0.0-11.0 N Eosinophils % (Auto) (test code = EO%) 0.2 % 0.0-7.0 N Basophils % (Auto) (test cod e = BA%) 0.7 % 0.0-2.0 N Immature Granulocytes # (Aut o) (test code = IMMGRAN#) 0.04 x10 3/uL Neutrophils # (Auto) (test code = NE#) 6.2 x10 3/uL 1.6-7.4 N Lymphocytes # (Auto) (test code = LY#) 2.14 x10 3/uL 0.50-4.60 N Monocytes # (Auto) (test cod e = MO#) 0.61 x10 3/uL 0.00-1.20 N Eosinophils # (Auto) (test code = EO#) 0.02 x10 3/uL 0.00-0.74 N Basophils # (Auto) (test cod e = BA#) 0.06 x10 3/uL 0.00-0.21 N nRBC Abs (test code = NRBCA) 0 nRBC Pct (test code = NRBCP) 0 % Coronavirus PCR, COVID19 [id number] 12:58:00* Test Item Value Reference Range Interpretation Comme nts Coronavirus PCR, COVID19 Rapid (test code = SARSCOV2) Coronavirus PCR, COVID19 Rapid (test code = ELNVEIU78.1) Reference Range: Negative SARS-CoV-2 PCR Result: (test code = SARS-CoV-2 PCR Result:) Negative by RT-PCR COVID-19 Status: AsymptomaticComprehensive Metabolic [id number] 12:58:00* Test Item Value Reference Range Interpretation Comme nts SODIUM (test code = NA) 140.0 mmol/L 136.0-145.0 N Potassium,K (test code = K) 4.0 mmol/L 3.0-5.1 N Chloride (test code = CL) 108 mmol/L 98-107 H Carbon Dioxide (test code = CO2) 27 mmol/L 20-31 N Anion Gap (test code = GAP) 5 mmol/L 5-15 N Blood Urea Nitrogen (test co de = BUN) 15 mg/dL 9-23 N Creatinine (test code = CREATT) 0.87 mg/dL 0.55-1.02 N Creatinine Clr Calc Pharmacy (test code = CRCLPHA) 88.74 mL/min Estimated GFR ( Amer[place] ca (test code = EGFRAA) > 60 mL/min/1.73m2 Estimated GFR (Non Afr Ameri ca (test code = EGFRNAA) > 60 mL/min/1.73m2 BUN/Creatinine Ratio (test c ode = BCRATIO) 17 ratio 10-20 N Glucose (test code = GLU) 163 mg/dL 74-106 H Osmolality,Calculated (test code = OSMOC) 294.3 Calcium (test code = CA) 11.5 mg/dL 8.3-10.6 H Bilirubin,Total (test code = BILIT) 0.4 mg/dL 0.2-1.1 N Aspartate Amino Transferase (test code = AST) 15 U/L 0-34 N Alanine Aminotransferase (te st code = ALT) 13 U/L 10-49 N Total Protein (test code = TP) 7.2 g/dL 5.7-8.2 N Albumin Level (test code = ALB) 4.6 g/dL 3.2-4.8 N Globulin (test code = GLOB) 2.6 mg/dL 2.3-3.5 N Albumin/Globulin Ratio (test code = AGRATIO) 1.8 ratio 0.8-2.0 N Alkaline Phosphatase (test c ode = ALP) 144 U/L 46-116 H Ethanol [id number] 12:58:00* Test Item Value Reference Range Interpretation Comme nts Ethanol (test code = ETOH) < 3 mg/dL The pharmacologi yudy response to blood alcohol levels mayvary from individual to individual. The fatal concentrationhas been reported to be >400mg/dL. [id number] 01:47:56* Test Item Value Reference Range Interpretation Comme nts [place] (test code = 3799439996) 0.7 mmol/L 0.6-1.2 JUAN ALBERTO (test code = JUAN ALBERTO) Toxic Range: ? Greater than 1.2 mmol/L Lab Interpretation (test code = 29666-8) [facility] [id number] 00:26:53* Test Item Value Reference Range Interpretation Comments TROPONIN I (test code = 8391135688) 0.002 ng/mL See_Comment [Automated message] The system which generated this result transmitted reference range: <=0.034. The reference range was not used to interpret this result as normal/abnormal. JUAN ALBERTO (test code = JUAN ALBERTO) [...] patient's use of biotin. Lab Interpretation (test code = 09909-0) [facility]2022[facility]-01 00:18:52 ALCOHOL<10mg/dL01/19/2022 7:18 [facility] Xjtforyf77-286 Toxic>100 Depression of LAP REGULATOR>400 [facility] METABOLIC PANEL (72224)2022-01-20 00:16:16* Test Item Value Reference Range Interpretation Comme nts NA (test code = 6268327249) 137 mmol/L 135-145 K (test code = 3340500745) 4.5 mmol/L 3.5-5 CL (test code = 2487096631) 103 mmol/L 98-108 CO2 TOTAL (test code = 1409806456) 26 mmol/L 23-31 AGAP (test code = 3509942044) 2-16 BUN (test code = 8316683043) 10 mg/dL 7-23 GLUCOSE (test code = 6941227692) 121 mg/dL 70-110 H CREATININE (test code = 4782209619) 0.65 mg/dL 0.6-1.25 TOTAL BILI (test code = 0641062298) 0.8 mg/dL 0.1-1.1 CALCIUM (test code = 7998691802) 11.4 mg/dL 8.6-10.6 H T PROTEIN (test code = 6986132408) 7.2 g/dL 6.3-8.2 ALBUMIN (test code = 2985618231) 4.6 g/dL 3.5-5 ALK PHOS (test code = 0821968534) 112 U/L 34-122 ALTv (test code = 1742-6) 19 U/L 5-50 AST(SGOT) (test code = 1972528768) 26 U/L 13-40 eGFR (test code = 5460525221) mL/min/1.73m2 JUAN ALBERTO (test code = JUAN [...] imaging tests). Lab Interpretation (test code = 99503-2) Abnormal [facility] WITH [id number] 23:43:54* Test Item Value Reference Range Interpretation Comme nts WBC (test code = 6690-2) See_Comment [[employer]] The system which generated this result transmitted reference range: 4.20 - 10.70 10*3/?L. The reference range was not used to interpret this result as normal/abnormal. RBC (test code = 789-8) See_Comment [[employer]] The system which generated this result transmitted reference range: 4.26 - 5.52 10*6/?L. The reference range was not used to interpret this result as normal/abnormal. HGB (test code = 718-7) 15.6 g/dL 12.2-16.4 HCT (test code = 4544-3) 45.3 % 38.4-49.3 MCV (test code = 787-2) 94.0 fL 81.7-95.6 MCH (test code = 785-6) 32.4 pg 26.1-32.7 MCHC (test code = 786-4) 34.4 g/dL 31.2-35 RDW-SD (test code = 16002-7) 44.0 fL 38.5-51.6 RDW-CV (test code = 788-0) 12.6 % 12.1-15.4 PLT (test code = 777-3) See_Comment [Automated messa ge] The system which generated this result transmitted reference range: 150 - 328 10*3/?L. The reference range was not used to interpret this result as normal/abnormal. MPV (test code = 03105-9) 9.1 fL 9.8-13 L NRBC/100 WBC (test code = 9977806640) See_Comment [Automated [employer]age] The system which generated this result transmitted reference range: 0.0 - 10.0 /100 WBCs. The reference range was not used to interpret this result as normal/abnormal. NRBC x10^3 (test code = 0239404817) See_Comment [Automated messa ge] The system which generated this result transmitted reference range: 10*3/?L. The reference range was not used to interpret this result as normal/abnormal. GRAN MAT (NEUT) % (test code = 770-8) 69.8 % IMM GRAN % (test code = 1573884969) 0.40 % LYMPH % (test code = 736-9) 18.0 % MONO % (test code = 5905-5) 10.9 % EOS % (test code = 713-8) 0.1 % BASO % (test code = 706-2) 0.8 % GRAN MAT x10^3(ANC) (test code = 7795685955) 5.58 10*3/uL 1.99-6.95 IMM GRAN x10^3 (test code = 0544545315) 0.03 10*3/uL 0-0.06 LYMPH x10^3 (test code = 731-0) 1.44 10*3/uL 1.09-3.23 MONO x10^3 (test code = 742-7) 0.87 10*3/uL 0.36-1.02 EOS x10^3 (test code = 711-2) 0.06-0.53 L BASO x10^3 (test code = 704-7) 0.06 10*3/uL 0.01-0.09 Lab Interpretation (test code = 80709-9) Abnormal [facility] GLUCOSE (AUTOMATED)2022-01-19 22:27:41* Test Item Value Reference Range Interpretation Comme nts POCT GLU (test code = 5475038768) 123 mg/dL 70-110 H Lab Interpretation (test cod e = 22895-5) Abnormal [facility] GLUCOSE (AUTOMATED)2021-12-30 22:08:16* Test Item Value Reference Range Interpretation Comme nts POCT GLU (test code = 9141310102) 167 mg/dL 70-110 H Lab Interpretation (test cod e = 25048-3) Abnormal [facility] GLUCOSE (AUTOMATED)2021-12-30 16:50:40* Test Item Value Reference Range Interpretation Comme nts POCT GLU (test code = 6334075722) 154 mg/dL 70-110 H Lab Interpretation (test cod e = 97171-5) Abnormal [facility] GLUCOSE (AUTOMATED)2021-12-30 12:38:43* Test Item Value Reference Range Interpretation Comme nts POCT GLU (test code = 3208813373) 164 mg/dL 70-110 H Lab Interpretation (test cod e = 12284-0) Abnormal [facility] GLUCOSE (AUTOMATED)2021-12-30 02:14:58* Test Item Value Reference Range Interpretation Comme nts POCT GLU (test code = 4470918393) 220 mg/dL 70-110 H Lab Interpretation (test cod e = 61460-1) Abnormal [facility] GLUCOSE (AUTOMATED)2021-12-29 21:50:02* Test Item Value Reference Range Interpretation Comme nts POCT GLU (test code = 5077866233) 191 mg/dL 70-110 H Lab Interpretation (test cod e = 03804-6) Abnormal [facility] GLUCOSE (AUTOMATED)2021-12-29 20:15:01* Test Item Value Reference Range Interpretation Comme nts POCT GLU (test code = 9503560773) 163 mg/dL 70-110 H Lab Interpretation (test cod e = 52488-3) [facility]normal [facility]ansthor[facility] echo (TTE)2021-12-29 19:12:22* Test Item Value Reference Range Interpretation Comme nts Height (test code = 1499771244) in Weight (test code = 5828048504) lbs Systolic BP (test code = 3130118869) mmHg Diastolic BP (test code = 3246917264) mmHg Heart Rate (test code = 5490111868) bpm BSA (test code = 4075869145) 1.62 m2 Ao root annulus (test code = 4148092820) 2.45 cm Ao root diam (test code = 1438379579) 2.45 cm Aortic root (test code = 7663899827) 2.45 cm ACS (test code = 3299631228) 1.66 cm LA size (test code = 2807042741) 3.2 cm LVOT diameter (test code = 6943837654) 1.95 cm LVIDD (test code = 9065075386) 3.60 cm IVS (test code = 2821271779) 0.94 cm Interventricular Septum Diastolic Thickness by 2D (test code = 3853827) 0.94 cm LVPWD (test code = 7904513664) 0.80 cm PW (test code = 4670379881) 0.80 cm 0.6-1.1 EF(Teich) (test code = 1957723689) 52.80 % LVIDS (test code = 9447255175) 2.60 cm FS (test code = 2825067246) 27 % EF - 2D (test code = 52042783) 52.80 % LAV(MOD-sp4) (test code = 8320098059) 16.80 mL MV Peak E Jovany (test code = 9865472686) 46.1 cm/s E wave decelartion time (test code = 1701042608) 0.31 s MV Peak A Jovany (test code = 8822666818) 58.1 cm/s E/A ratio (test code = 7448299562) ratio MV E/e' septal (test code = 9830380441) 5.7 cm/s Tapse (test code = 4297502673) 1.60 cm LVOT stroke volume (test code = 8296663367) 52.10 cm3 LVOT peak jovany (test code = 7750731197) 110.6 cm/s LVOT mn grad (test code = 3653900353) mmHg AV LVOT peak gradient (test code = 6115000063) mmHg LVOT peak VTI (test code = 7382160598) 17.4 cm LV V1 mean (test code = 4052816488) 66.10 cm/s Aortic valve mean velocity (test code = 2578420601) 73.0 cm/s Ao peak jovany (test code = 8175036376) 124.6 cm/s Ao VTI (test code = 7223337963) 18.6 cm AV area by cont VTI (test code = 0143070963) 2.8 cm2 AV area peak jovany (test code = 3195418842) 2.7 cm2 Ao max PG (test code = 3714105455) 6.20 mm[Hg] AV peak gradient (test code = 3057186435) mmHg AV valve area (test code = 6293805146) 2.80 cm2 AV mean gradient (test code = 3090547694) mmHg Radiology Study observation (narrative) (test code = 01810-4) JUAN ALBERTO (test code = JUAN ALBERTO) [...] mL of Lumason ultrasound enhancing agent used. [facility] GLUCOSE (AUTOMATED)2021-12-29 12:50:31* Test Item Value Reference Range Interpretation Comme nts POCT GLU (test code = 3407152422) 141 mg/dL 70-110 H Lab Interpretation (test cod e = 38270-7) [facility]normal [facility]roponin [id number] 10:38:31* Test Item Value Reference Range Interpretation Comments TROPONIN I (test code = 4319762833) 0.003 ng/mL See_Comment [Automated message] The system which generated this result transmitted reference range: <=0.034. The reference range was not used to interpret this result as normal/abnormal. JUAN ALBERTO (test code = JUAN ALBERTO) [...] patient's use of biotin. Lab Interpretation (test code = 89262-5) [facility]iscoLIPID PANEL (67879)(TOTAL CHOLESTEROL, TRIGLYCERIDES, HDL)2021-12-29 05:56:47* Test Item Value Reference Range Interpretation Comme nts CHOL (test code = 0531724406) 168 mg/dL 120-200 HDL (test code = 8350841996) 102 mg/dL See_Comment [Automated [employer]] The system which generated this result transmitted reference range: >=40. The reference range was not used to interpret this result as normal/abnormal. HDLC RATIO (test code = 0278997823) See_Comment [Automated [employer]] The system which generated this result transmitted reference range: <=5.0. The reference range was not used to interpret this result as normal/abnormal. TRIG (test code = 2091951748) 55 mg/dL 30-170 LDL CHOL (test code = 92086-8) 55 mg/dL See_Comment [Automated [employer]] The system which generated this result transmitted reference range: <=160. The reference range was not used to interpret this result as normal/abnormal. VLDL (test code = 9428550756) 11 mg/dL 5-60 Lab Interpretation (test code = 42949-8) [facility]iscoThyroid Stimulating Hormone (TSH)2021-12-29 05:40:29* Test Item Value Reference Range Interpretation Comme nts TSH (test code = 9365404012) See_Comment Biotin has been reported to cause a negative bias, interpret results relative to patient's use of biotin. [Automated message] The system which generated this result transmitted reference range: 0.45 - 4.70 mIU/L. The reference range was not used to interpret this result as normal/abnormal. Lab Interpretation (test code = 79112-1) [facility]iscoTroponin [id number] 05:34:29* Test Item Value Reference Range Interpretation Comments TROPONIN I (test code = 3677385401) 0.006 ng/mL See_Comment [Automated message] The system which generated this result transmitted reference range: <=0.034. The reference range was not used to interpret this result as normal/abnormal. JUAN ALBERTO (test code = JUAN ALBERTO) [...] patient's use of biotin. Lab Interpretation (test code = 14440-5) [facility]ETH[facility]OL2022-07-10 04:43:01 ALCOHOL<10mg/dL12/28/2021 11:43 PM [facility] Greater than or equal to 80 mg/dL. NOTE: Whole blood values are approximately 10% to 15% lower than serum and plasma.[facility] Glycosylated Hemoglobin (A1C)2021-12-29 01:51:44* Test Item Value Reference Range Interpretation Comme nts HGB A1C (test code = 4548-4) 6.5 % 4-5.7 H JUAN ALBERTO (test code = JUAN ALBERTO) Reference RangesNormal: <5.7%Prediabetes: 5.7 - 6.4%Diabetes: > 6.5% Lab Interpretation (test code = 90211-2) [facility]normal [facility]iscoTROPONIN [id number] 21:26:50* Test Item Value Reference Range Interpretation Comments TROPONIN I (test code = 5338761503) 0.002 ng/mL See_Comment [Automated message] The system which generated this result transmitted reference range: <=0.034. The reference range was not used to interpret this result as normal/abnormal. JUAN ALBERTO (test code = JUAN ALBERTO) [...] patient's use of biotin. Lab Interpretation (test code = 34283-1) [facility]iscoN-TERMINAL [id number] 21:23:29* Test Item Value Reference Range Interpretation Comme nts NT-proBNP (test code = 6667752316) 41 pg/mL See_Comment [Automated message] The system which generated this result transmitted reference range: <=125. The reference range was not used to interpret this result as normal/abnormal. JUAN ALBERTO (test code = JUAN ALBERTO) Biotin has been reported to cause a negative bias, interpret results relative to patient's use of biotin. Lab Interpretation (test code = 76783-6) [facility]iscoAMMONIA, [id number] 21:20:38* Test Item Value Reference Range Interpretation Comme nts AMMONIA (test code = 7944638213) 9-33 L Slight hemolysis Lab Interpretation (test code = 56900-5) [facility]normal [facility]COMP. METABOLIC PANEL (73509)2021-12-28 21:08:48* Test Item Value Reference Range Interpretation Comme nts NA (test code = 3648205927) 137 mmol/L 135-145 K (test code = 6181215472) 4.5 mmol/L 3.5-5 CL (test code = 3349794487) 97 mmol/L 98-108 L CO2 TOTAL (test code = 7587756873) 29 mmol/L 23-31 AGAP (test code = 0715718219) 2-16 BUN (test code = 0328365999) 10 mg/dL 7-23 GLUCOSE (test code = 5436928155) 188 mg/dL 70-110 H CREATININE (test code = 1721465392) 0.58 mg/dL 0.6-1.25 L TOTAL BILI (test code = 7276592426) 0.8 mg/dL 0.1-1.1 CALCIUM (test code = 5623222587) 10.5 mg/dL 8.6-10.6 T PROTEIN (test code = 2909604278) 7.6 g/dL 6.3-8.2 ALBUMIN (test code = 8767079386) 4.5 g/dL 3.5-5 ALK PHOS (test code = 9199182701) 107 U/L 34-122 ALTv (test code = 1742-6) 66 U/L 5-50 H AST(SGOT) (test code = 0841583109) 96 U/L 13-40 H eGFR (test code = 7051156876) mL/min/1.73m2 JUAN ALBERTO (test code = JUAN [...] imaging tests). Lab Interpretation (test code = 48148-8) Abnormal [facility] FriscoPROTHROMBIN TIME / [id number] 21:01:25* Test Item Value Reference Range Interpretation Comme nts PROTIME PATIENT (test code = 5964-2) See_Comment [Automated [employer]] The system which generated this result transmitted reference range: 12.0 - 14.7 Seconds. The reference range was not used to interpret this result as normal/abnormal. INR (test code = 6301-6) Normal INR <1.1; Warfarin Therapeutic range 2.0 to 3.0 or 2.5 to 3.5, depending upon the indications. Lab Interpretation (test code = 69915-3) [id number] 20:54:03* Test Item Value Reference Range Interpretation Comme nts WBC (test code = 6690-2) See_Comment [[employer]] The system which generated this result transmitted reference range: 4.20 - 10.70 10*3/?L. The reference range was not used to interpret this result as normal/abnormal. RBC (test code = 789-8) See_Comment [[employer]ated [employer]] The system which generated this result transmitted reference range: 4.26 - 5.52 10*6/?L. The reference range was not used to interpret this result as normal/abnormal. HGB (test code = 718-7) 15.9 g/dL 12.2-16.4 HCT (test code = 4544-3) 46.5 % 38.4-49.3 MCV (test code = 787-2) 96.7 fL 81.7-95.6 H MCH (test code = 785-6) 33.1 pg 26.1-32.7 H MCHC (test code = 786-4) 34.2 g/dL 31.2-35 RDW-SD (test code = 02948-9) 47.8 fL 38.5-51.6 RDW-CV (test code = 788-0) 13.3 % 12.1-15.4 PLT (test code = 777-3) See_Comment [Automated [employer]] The system which generated this result transmitted reference range: 150 - 328 10*3/?L. The reference range was not used to interpret this result as normal/abnormal. MPV (test code = 37846-2) 8.6 fL 9.8-13 L NRBC/100 WBC (test code = 1232228122) See_Comment [Automated [employer]] The system which generated this result transmitted reference range: 0.0 - 10.0 /100 WBCs. The reference range was not used to interpret this result as normal/abnormal. NRBC x10^3 (test code = 0438816102) See_Comment [Automated [employer]] The system which generated this result transmitted reference range: 10*3/?L. The reference range was not used to interpret this result as normal/abnormal. GRAN MAT (NEUT) % (test code = 770-8) 64.1 % IMM GRAN % (test code = 8357565168) 0.40 % LYMPH % (test code = 736-9) 16.6 % MONO % (test code = 5905-5) 17.2 % EOS % (test code = 713-8) 0.2 % BASO % (test code = 706-2) 1.5 % GRAN MAT x10^3(ANC) (test code = 4722112395) 3.47 10*3/uL 1.99-6.95 IMM GRAN x10^3 (test code = 2809933713) 0-0.06 LYMPH x10^3 (test code = 731-0) 0.90 10*3/uL 1.09-3.23 L MONO x10^3 (test code = 742-7) 0.93 10*3/uL 0.36-1.02 EOS x10^3 (test code = 711-2) 0.06-0.53 L BASO x10^3 (test code = 704-7) 0.08 10*3/uL 0.01-0.09 Lab Interpretation (test code = 44381-4) [facility] [id number] 21:08:00* Test Item Value Reference Range Interpretation Comme nts Ethanol (test code = ETOH) < 3 mg/dL The pharmacologi yudy response to blood alcohol levels mayvary from individual to individual. The fatal concentrationhas been reported to be >400mg/dL. Complete Blood Count Auto [id number] 17:33:00* Test Item Value Reference Range Interpretation Comme nts White Blood Count (test code = WBCT) 9.1 x10 3/uL 4.4-10.5 N Red Blood Count (test code = RBC) 4.58 x10 6/uL 4.10-5.70 N Hemoglobin (test code = HGBT) 14.6 g/dL 13.4-17.4 N Hematocrit (test code = HCTT) 45.4 % 38.7-52.0 N Mean Corpuscular Volume (susan t code = MCV) 99.10 fL 80.00-100.00 N Mean Corpuscular Hemoglobin (test code = MCH) 31.9 pg 27.0-32.5 N Mean Corpuscular HGB Conc (test code = MCHC) 32.20 g/dL 32.00-37.50 N RDW Coefficient of Variation (test code = RDWCV) 12.7 % 11.5-14.5 N Platelet Count (test code = PLTT) 289.0 x10 3/uL 140.0-440.0 N Mean Platelet Volume (test code = MPV) 9.4 fL Immature Granulocytes % (Aut o) (test code = IMMGRAN%) 0.2 % 0.0-5.0 N Neutrophils % (Auto) (test code = NE%) 66.7 % 36.0-70.0 N Lymphocytes % (Auto) (test code = LY%) 20.4 % 12.0-44.0 N Monocytes % (Auto) (test cod e = MO%) 10.7 % 0.0-11.0 N Eosinophils % (Auto) (test code = EO%) 1.0 % 0.0-7.0 N Basophils % (Auto) (test cod e = BA%) 1.0 % 0.0-2.0 N Immature Granulocytes # (Aut o) (test code = IMMGRAN#) 0.02 x10 3/uL Neutrophils # (Auto) (test code = NE#) 6.1 x10 3/uL 1.6-7.4 N Lymphocytes # (Auto) (test code = LY#) 1.86 x10 3/uL 0.50-4.60 N Monocytes # (Auto) (test cod e = MO#) 0.97 x10 3/uL 0.00-1.20 N Eosinophils # (Auto) (test code = EO#) 0.09 x10 3/uL 0.00-0.74 N Basophils # (Auto) (test cod e = BA#) 0.09 x10 3/uL 0.00-0.21 N nRBC Abs (test code = NRBCA) 0 nRBC Pct (test code = NRBCP) 0 % UA, Urinalysis Rflx Cult/[id number] 17:33:00* Test Item Value Reference Range Interpretation Comme nts Color,Urine (test code = UCOL) Dark Yellow Yellow A Clarity,Urine (test code = UCLAR) Clear Clear Ph, Urine (test code = UPH) 6.5 5.0-9.0 N Specific [place],Urine (test code = USG) 1.015 1.005-1.030 N Blood,Urine (test code = UBLD) Negative mg/dL Negative Protein,Urine (test code = UPRO) Negative mg/dL Negative Glucose,Urine (UA) (test cod e = UGLU) 100 mg/dL Negative A Ketones,Urine (test code = UKET) Trace mg/dL Negative A Nitrate,Urine (test code = UNIT) Negative Negative Bilirubin,Urine (test code = UBIL) Negative mg/dL Negative Urobilinogen,Urine (test cod e = UURO) 4.0 E.U./dL Normal A Leukocyte Esterase,Urine (te st code = ULEU) Trace mg/dL Negative A Urine [id number] 17:33:00* Test Item Value Reference Range Interpretation Comme nts RBC,Urine (test code = URBCUF) None Seen /HPF 0-2 WBC,Urine (test code = UWBCUF) 0-5 /HPF 0-5 Epithelial Cell,Urine (test code = UECUF) 0-5 /HPF 0-5 Casts,Urine (test code = UCASTUF) None Seen /LPF None Seen Bacteria,Urine (test code = UBACTUF) None Seen /hpf None Seen Drug Screen,[id number] 17:33:00* Test Item Value Reference Range Interpretation Comme nts PCP Phencyclidine Screen,Urine (test code = PCPU) Negative Negative Amphetamine Screen,Urine (test code = AMPU) Positive Negative A Confirmation by GC/MS not routinely performed. Ifconfirmation is required, an order must be placed. Methadone Screen,Urine (test code = METHU) Negative Negative Opiate Screen,Urine (test code = UOPIS) Negative Negative Barbituates Screen,Urine (test code = BARBU) Negative Negative Benzodiazepines Screen,Urine (test code = UBENZS) Negative Negative Cocaine Screen,Urine (test code = UCOCS) Negative Negative Cannabinoid Screen,Urine (test code = UTHCS) Negative Negative Propoxyphene Screen, Urine (test code = UPROP) Negative Negative Comprehensive Metabolic [id number] 17:33:00* Test Item Value Reference Range Interpretation Comme nts SODIUM (test code = NA) 141.0 mmol/L 136.0-145.0 N Potassium,K (test code = K) 3.7 mmol/L 3.0-5.1 N Chloride (test code = CL) 107 mmol/L 98-107 N Carbon Dioxide (test code = CO2) 31 mmol/L 20-31 N Anion Gap (test code = GAP) 3 mmol/L 5-15 L Blood Urea Nitrogen (test co de = BUN) 11 mg/dL 9-23 N Creatinine (test code = CREATT) 0.87 mg/dL 0.55-1.02 N Creatinine Clr Calc Pharmacy (test code = CRCLPHA) 80.84 mL/min Estimated GFR ( Ameri ca (test code = EGFRAA) > 60 mL/min/1.73m2 Estimated GFR (Non Afr Ameri ca (test code = EGFRNAA) > 60 mL/min/1.73m2 BUN/Creatinine Ratio (test c ode = BCRATIO) 13 ratio 10-20 N Glucose (test code = GLU) 138 mg/dL 74-106 H Osmolality,Calculated (test code = OSMOC) 292.9 Calcium (test code = CA) 10.3 mg/dL 8.3-10.6 N Bilirubin,Total (test code = BILIT) 1.0 mg/dL 0.2-1.1 N Aspartate Amino Transferase (test code = AST) 40 U/L 0-34 H Alanine Aminotransferase (te st code = ALT) 31 U/L 10-49 N Total Protein (test code = TP) 6.7 g/dL 5.7-8.2 N Albumin Level (test code = ALB) 4.3 g/dL 3.2-4.8 N Globulin (test code = GLOB) 2.4 mg/dL 2.3-3.5 N Albumin/Globulin Ratio (test code = AGRATIO) 1.8 ratio 0.8-2.0 N Alkaline Phosphatase (test c ode = ALP) 101 U/L 46-116 N Sars-CoV-2/FLU A/B RSV [id number] 17:31:00* Test Item Value Reference Range Interpretation Comme nts Sars-CoV-2/FLU A/B RSV PCR (test code = SARSFLURSVPCR) For use under Emergency Use Authorization (EUA) only. Sars-CoV-2/FLU A/B RSV PCR (test code = SARSFLURSVPCR1.1) Reference Range: Negative Influenza A PCR: (test code = Influenza A PCR:) Negative by Nucleic Acid Amplification Influenza B PCR: (test code = Influenza B PCR:) Negative by Nucleic Acid Amplification RSV PCR Result: (test code = RSV PCR Result:) Negative by Nucleic Acid Amplification SARS-CoV-2 PCR Result: (test code = SARS-CoV-2 PCR Result:) Negative by RT-PCR Drug Screen,[id number] 17:20:00* Test Item Value Reference Range Interpretation Comme nts PCP Phencyclidine Screen,Uri ne (test code = PCPU) Negative Negative Amphetamine Screen,Urine (te st code = AMPU) Negative Negative Methadone Screen,Urine (test code = METHU) Negative Negative Opiate Screen,Urine (test co de = UOPIS) Negative Negative Barbituates Screen,Urine (te st code = BARBU) Negative Negative Benzodiazepines Screen,Urine (test code = UBENZS) Positive Negative A Cocaine Screen,Urine (test c ode = UCOCS) Negative Negative Cannabinoid Screen,Urine (te st code = UTHCS) Negative Negative Propoxyphene Screen, Urine ( test code = UPROP) Negative Negative Complete Blood Count Auto [id number] 17:14:00* Test Item Value Reference Range Interpretation Comme nts White Blood Count (test code = WBCT) 9.6 x10 3/uL 4.4-10.5 N Red Blood Count (test code = RBC) 4.44 x10 6/uL 4.10-5.70 N Hemoglobin (test code = HGBT) 14.3 g/dL 13.4-17.4 N Hematocrit (test code = HCTT) 44.9 % 38.7-52.0 N Mean Corpuscular Volume (susan t code = MCV) 101.10 fL 80.00-100.00 H Mean Corpuscular Hemoglobin (test code = MCH) 32.2 pg 27.0-32.5 N Mean Corpuscular HGB Conc (test code = MCHC) 31.80 g/dL 32.00-37.50 L RDW Coefficient of Variation (test code = RDWCV) 12.4 % 11.5-14.5 N Platelet Count (test code = PLTT) 249.0 x10 3/uL 140.0-440.0 N Mean Platelet Volume (test code = MPV) 8.2 fL Immature Granulocytes % (Aut o) (test code = IMMGRAN%) 0.3 % 0.0-5.0 N Neutrophils % (Auto) (test code = NE%) 53.4 % 36.0-70.0 N Lymphocytes % (Auto) (test code = LY%) 33.3 % 12.0-44.0 N Monocytes % (Auto) (test cod e = MO%) 12.5 % 0.0-11.0 H Eosinophils % (Auto) (test code = EO%) 0.0 % 0.0-7.0 N Basophils % (Auto) (test cod e = BA%) 0.5 % 0.0-2.0 N Immature Granulocytes # (Aut o) (test code = IMMGRAN#) 0.03 x10 3/uL Neutrophils # (Auto) (test code = NE#) 5.1 x10 3/uL 1.6-7.4 N Lymphocytes # (Auto) (test code = LY#) 3.20 x10 3/uL 0.50-4.60 N Monocytes # (Auto) (test cod e = MO#) 1.20 x10 3/uL 0.00-1.20 N Eosinophils # (Auto) (test code = EO#) 0.00 x10 3/uL 0.00-0.74 N Basophils # (Auto) (test cod e = BA#) 0.05 x10 3/uL 0.00-0.21 N nRBC Abs (test code = NRBCA) 0 nRBC Pct (test code = NRBCP) 0 % Comprehensive Metabolic [id number] 17:14:00* Test Item Value Reference Range Interpretation Comme nts SODIUM (test code = NA) 138.0 mmol/L 136.0-145.0 N Potassium,K (test code = K) 4.1 mmol/L 3.0-5.1 N Chloride (test code = CL) 107 mmol/L 98-107 N Carbon Dioxide (test code = CO2) 24 mmol/L 20-31 N Anion Gap (test code = GAP) 7 mmol/L 5-15 N Blood Urea Nitrogen (test co de = BUN) 9 mg/dL 9-23 N Creatinine (test code = CREATT) 0.46 mg/dL 0.55-1.02 L Creatinine Clr Calc Pharmacy (test code = CRCLPHA) 179.62 mL/min Estimated GFR ( Ameri ca (test code = EGFRAA) > 60 mL/min/1.73m2 Estimated GFR (Non Afr Ameri ca (test code = EGFRNAA) > 60 mL/min/1.73m2 BUN/Creatinine Ratio (test c ode = BCRATIO) 20 ratio 10-20 N Glucose (test code = GLU) 154 mg/dL 74-106 H Osmolality,Calculated (test code = OSMOC) 287.2 Calcium (test code = CA) 8.2 mg/dL 8.3-10.6 L Bilirubin,Total (test code = BILIT) 0.3 mg/dL 0.2-1.1 N Aspartate Amino Transferase (test code = AST) 76 U/L 0-34 H Alanine Aminotransferase (te st code = ALT) 101 U/L 10-49 H Total Protein (test code = TP) 6.2 g/dL 5.7-8.2 N Albumin Level (test code = ALB) 4.2 g/dL 3.2-4.8 N Globulin (test code = GLOB) 2.0 mg/dL 2.3-3.5 L Albumin/Globulin Ratio (test code = AGRATIO) 2.1 ratio 0.8-2.0 H Alkaline Phosphatase (test c ode = ALP) 207 U/L 46-116 H Ethanol [id number] 17:14:00* Test Item Value Reference Range Interpretation Comme nts Ethanol (test code = ETOH) 192 mg/dL Complete Blood Count Auto [id number] 20:20:00* Test Item Value Reference Range Interpretation Comme nts White Blood Count (test code = WBCT) 7.6 x10 3/uL 4.4-10.5 N Red Blood Count (test code = RBC) 4.40 x10 6/uL 4.10-5.70 N Hemoglobin (test code = HGBT) 14.3 g/dL 13.4-17.4 N Hematocrit (test code = HCTT) 44.0 % 38.7-52.0 N Mean Corpuscular Volume (susan t code = MCV) 100.00 fL 80.00-100.00 N Mean Corpuscular Hemoglobin (test code = MCH) 32.5 pg 27.0-32.5 N Mean Corpuscular HGB Conc (test code = MCHC) 32.50 g/dL 32.00-37.50 N RDW Coefficient of Variation (test code = RDWCV) 12.6 % 11.5-14.5 N Platelet Count (test code = PLTT) 282.0 x10 3/uL 140.0-440.0 N Mean Platelet Volume (test code = MPV) 8.4 fL Immature Granulocytes % (Aut o) (test code = IMMGRAN%) 0.3 % 0.0-5.0 N Neutrophils % (Auto) (test code = NE%) 65.3 % 36.0-70.0 N Lymphocytes % (Auto) (test code = LY%) 25.0 % 12.0-44.0 N Monocytes % (Auto) (test cod e = MO%) 8.9 % 0.0-11.0 N Eosinophils % (Auto) (test code = EO%) 0.0 % 0.0-7.0 N Basophils % (Auto) (test cod e = BA%) 0.5 % 0.0-2.0 N Immature Granulocytes # (Aut o) (test code = IMMGRAN#) 0.02 x10 3/uL Neutrophils # (Auto) (test code = NE#) 5.0 x10 3/uL 1.6-7.4 N Lymphocytes # (Auto) (test code = LY#) 1.90 x10 3/uL 0.50-4.60 N Monocytes # (Auto) (test cod e = MO#) 0.68 x10 3/uL 0.00-1.20 N Eosinophils # (Auto) (test code = EO#) 0.00 x10 3/uL 0.00-0.74 N Basophils # (Auto) (test cod e = BA#) 0.04 x10 3/uL 0.00-0.21 N nRBC Abs (test code = NRBCA) 0 nRBC Pct (test code = NRBCP) 0 % Comprehensive Metabolic [id number] 20:20:00* Test Item Value Reference Range Interpretation Comme nts SODIUM (test code = NA) 140.0 mmol/L 136.0-145.0 N Potassium,K (test code = K) 4.0 mmol/L 3.0-5.1 N Chloride (test code = CL) 107 mmol/L 98-107 N Carbon Dioxide (test code = CO2) 27 mmol/L 20-31 N Anion Gap (test code = GAP) 6 mmol/L 5-15 N Blood Urea Nitrogen (test co de = BUN) 8 mg/dL 9-23 L Creatinine (test code = CREATT) 0.81 mg/dL 0.55-1.02 N Creatinine Clr Calc Pharmacy (test code = CRCLPHA) 87.81 mL/min Estimated GFR ( Ameri ca (test code = EGFRAA) > 60 mL/min/1.73m2 Estimated GFR (Non Afr Ameri ca (test code = EGFRNAA) > 60 mL/min/1.73m2 BUN/Creatinine Ratio (test c ode = BCRATIO) 10 ratio 10-20 N Glucose (test code = GLU) 128 mg/dL 74-106 H Osmolality,Calculated (test code = OSMOC) 289.8 Calcium (test code = CA) 9.1 mg/dL 8.3-10.6 N Bilirubin,Total (test code = BILIT) 0.2 mg/dL 0.2-1.1 N Aspartate Amino Transferase (test code = AST) 24 U/L 0-34 N Alanine Aminotransferase (te st code = ALT) 27 U/L 10-49 N Total Protein (test code = TP) 6.4 g/dL 5.7-8.2 N Albumin Level (test code = ALB) 4.5 g/dL 3.2-4.8 N Globulin (test code = GLOB) 1.9 mg/dL 2.3-3.5 L Albumin/Globulin Ratio (test code = AGRATIO) 2.4 ratio 0.8-2.0 H Alkaline Phosphatase (test c ode = ALP) 189 U/L 46-116 H Ethanol [id number] 20:20:00* Test Item Value Reference Range Interpretation Comme nts Ethanol (test code = ETOH) 10 mg/dL Sars-CoV-2/FLU A/B RSV [id number] 20:20:00* Test Item Value Reference Range Interpretation Comme nts Sars-CoV-2/FLU A/B RSV PCR (test code = SARSFLURSVPCR) For use under Emergency Use Authorization (EUA) only. Sars-CoV-2/FLU A/B RSV PCR (test code = SARSFLURSVPCR1.1) ical-devices/emergency-u se-authorizations. Influenza A PCR: (test code = Influenza A PCR:) Negative by Nucleic Acid Amplification Influenza B PCR: (test code = Influenza B PCR:) Negative by Nucleic Acid Amplification RSV PCR Result: (test code = RSV PCR Result:) Negative by Nucleic Acid Amplification SARS-CoV-2 PCR Result: (test code = SARS-CoV-2 PCR Result:) Negative by Nucleic Acid Amplification UA, Urinalysis [id number] 20:20:00* Test Item Value Reference Range Interpretation Comme nts Color,Urine (test code = UCOL) Yellow Y Clarity,Urine (test code = UCLAR) Clear Clear PH,Urine (test code = UPH.XX) 7.0 5.5-8.5 Specific [place],Urine (test code = USG) 1.020 1.005-1.030 N Blood,Urine (test code = UBLD) Negative cells/uL Negative Protein,Urine (test code = UPRO) Negative mg/dL Negative Glucose,Urine (UA) (test code = UGLU) 100 mg/dL Negative A Ketones,Urine (test code = UKET) Negative mg/dL Negative Nitrate,Urine (test code = UNIT) Negative Negative Bilirubin,Urine (test code = UBIL) Negative mg/dL Negative Urobilinogen,Urine (test code = UURO) 0.2 mg/dL Negative Leukocyte Esterase,Urine (test code = ULEU) Negative cells/uL Negative Drug Screen,[id number] 20:20:00* Test Item Value Reference Range Interpretation Comme nts PCP Phencyclidine Screen,Urine (test code = PCPU) Negative Negative Amphetamine Screen,Urine (test code = AMPU) Negative Negative Methadone Screen,Urine (test code = METHU) Negative Negative Opiate Screen,Urine (test code = UOPIS) Negative Negative Barbituates Screen,Urine (test code = BARBU) Negative Negative Benzodiazepines Screen,Urine (test code = UBENZS) Negative Negative Cocaine Screen,Urine (test code = UCOCS) Negative Negative Propoxyphene Screen, Urine (test code = UPROP) Negative Negative Cannabinoid Screen,Urine (test code = UTHCS) Negative RESULT TO MICHAEL[facility] TRACY CT head/brain wo [facility] [address] [place] [address] Patient Name: Walt Velazquez Medical Record#: [id number] Address: Homeless City/State/Zip: [place] [address]: Vinnie Navarro MD Phone: Insurance: Self Pay /Age/Sex: 1970/50/M Admit/Reg Date: 09/17/[address]: Vinnie Navarro MD Location: [facility]/ PCP: Md KERWIN Flores Date of Service: 09/17/21 Order (s): CT head/brain wo [facility] CPT Code: 30843 Report Number: [id number] Reason for Exam: Altered mental status Location H 31 CT SCAN OF THE HEAD WITHOUT CONTRAST CLINICAL HISTORY: Altered mental status TECHNIQUE: Helical CT was performed from the skull base to the vertex without IV contrast and provided at 5 mm slice thickness. Coronal and sagittal reconstruction provided. Axial images provided in bone windows as well. One or m ore the following dose reduction techniques is utilized: Use of iterative reconstruction, automatedexposure control, adjustment of the mAs and Kv for the patient's weight. DLP 822.2mGy-cm. FINDINGS:There is no CT evidence of acute infarct. No intra or extra-axial hemorrhage or fluid collections. No midline shift or mass effect. Posterior fossa contents are intact. There is mild generalized parenchymal volume loss with compensatory widening of the ventricular system. Og-white differentiationis maintained. The basal cisterns are preserved. Visualized orbits, paranasal sinus and mastoid airspaces appear within normal limits. Calvarium is intact. [...] [id number] cc: JOSEE; GENESIS* Vinnie Navarro MD; Pcp-None,Md SURESH"
--- NOTE | 2023-07-11 00:24 | EDPHYS ---
Physician Documentation [facility] Name: Walt Velazquez Age: 52 yrs Sex: Male : 1970 Arrival Date: 07/11/2023 Time: 00:09 Bed 7 Private MD: ED Physician Esme Wilkes HPI: 07/11 00:13 This 52 yrs old Male presents to ER via Unassigned with complaints of drank sp3 too much \\T\\ right shoulder pain. 00:19 52-year-old male with a history of bipolar disease, alcoholism, hypertension now sp3 presents to the ED with recurrent alcohol intoxication and complaints of right shoulder pain secondary to "might of strained it". He has an old injury at that location. Patient has full range of motion his arm and denies any numbness or tingling. Review of systems negative for chest pain, shortness of breath, abdominal pain, nausea, vomiting, diarrhea, syncope, near syncope, back pain, headache, focal neurological deficit, or any other signs or symptoms on ROS at this time. Patient states he has had "several drinks" with last drink several hours ago.. Historical: - Allergies: 00:26 Trazodone; tm6 - PMHx: 00:26 Alcoholism; Bipolar II; Hypertensive disorder; Parkinsons; Seizure; tm6 - Immunization history:: Adult Immunizations up to date. - Social history:: Smoking status: Patient reports the use of cigarette tobacco products, smokes one-half pack cigarettes per day, Patient uses alcohol, on a daily basis. 4 20oz beers daily. ROS: 00:19 Constitutional: Negative for fever, chills, and weight loss, Eyes: Negative for injury, sp3 pain, redness, and discharge, Cardiovascular: Negative for chest pain, palpitations, and edema, Respiratory: Negative for shortness of breath, cough, wheezing, and pleuritic chest pain, Abdomen/GI: Negative for abdominal pain, nausea, vomiting, diarrhea, and constipation, Skin: Negative for injury, rash, and discoloration, Allergy/Immunology: Negative for hives, rash, and allergies, Endocrine: Negative for neck swelling, polydipsia, polyuria, polyphagia, and marked weight changes, Hematologic/Lymphatic: Negative for swollen nodes, abnormal bleeding, and unusual bruising, 00:19 All other systems are negative, Exam: 00:20 Constitutional: This is a well developed, well nourished patient who is awake, alert, sp3 and in no acute distress. Head/Face: Normocephalic, atraumatic. Eyes: Pupils equal round and reactive to light, extra-ocular motions intact. Lids and lashes normal. Conjunctiva and sclera are non-icteric and not injected. Cornea within normal limits. Periorbital areas with no swelling, redness, or edema. ENT: Nares patent. No nasal discharge, no septal abnormalities noted. External auditory canals are clear. Oropharynx with no redness, swelling, or masses, exudates, or evidence of obstruction, uvula midline. Mucous membranes moist. Neck: Trachea midline, no thyromegaly or masses palpated, and no cervical lymphadenopathy. Supple, full range of motion without nuchal rigidity, or vertebral point tenderness. No Meningismus. Chest/axilla: Normal chest wall appearance and motion. Nontender with no deformity. No lesions are appreciated. Cardiovascular: Regular rate and rhythm with a normal S1 and S2. No gallops, murmurs, or rubs. Normal PMI, no JVD. No pulse deficits. Respiratory: Lungs have equal breath sounds bilaterally, clear to auscultation and percussion. No rales, rhonchi or wheezes noted. No increased work of breathing, no retractions or nasal flaring. Abdomen/GI: Soft, non-tender, with normal bowel sounds. No distension or tympany. No guarding or rebound. No evidence of tenderness throughout. Back: No spinal tenderness. No costovertebral tenderness. Full range of motion. Skin: Warm, dry with normal turgor. Normal color with no rashes, no lesions, and no evidence of cellulitis. MS/ Extremity: Pulses equal, no cyanosis. Neurovascular intact. Full, normal range of motion. Neuro: Awake and alert, GCS 15, oriented to person, place, time, and situation. Cranial nerves II-XII grossly intact. Motor strength 5/5 in all extremities. Sensory grossly intact. Cerebellar exam normal. Normal gait. Psych: Awake, alert, with orientation to person, place and time. Behavior, mood, and affect are within normal limits. 00:20 Musculoskeletal/extremity: Normal right shoulder exam with full range of motion. Patient is intoxicated with no other symptoms. Vital Signs: 00:24 BP 123 / 88; Pulse 122; Resp 19; Temp 98.5(O); Pulse Ox 98% on R/A; Weight 63.5 kg; tm6 Height 5 ft. 3 in. ; Pain 6/10; 00:54 BP 116 / 72; Pulse 108; Resp 18; Pulse Ox 99% ; vc1 00:24 Body Mass Index 24.80 (63.50 kg, 160.02 cm) tm6 00:24 Pain Scale: Adult tm6 MDM: 00:12 Patient medically screened. sp3 00:21 Data reviewed: vital signs, nurses notes, old medical records. ED course: Patient is sp3 intoxicated with no danger to himself and no threat of airway compromise, vomiting or any other process. We will administer ibuprofen 600 mg and give p.o. challenge with probable discharge. No further intervention indicated.. 07/11 00:12 Order name: PO challenge; Complete Time: 00:47 sp3 Administered Medications: 00:36 Drug: Ibuprofen PO 600 mg PO once Route: PO; tm6 Disposition Summary: 07/11/23 00:24 Discharge Ordered Notes: Location: Home sp3 Condition: Stable sp3 Diagnosis - Alcohol abuse, uncomplicated sp3 Followup: sp3 - With: Private Physician - When: Upon discharge from the Emergency Department - Reason: Continuance of care Discharge Instructions: - Discharge Summary Sheet sp3 - Alcohol Use Disorder sp3 Forms: - Medication Reconciliation Form sp3 - Thank You Letter sp3 - Antibiotic Education sp3 - Prescription Opioid Use sp3 - Patient Portal Instructions sp3 - Leadership Thank You Letter sp3 Signatures: Esme Wilkes MD MD sp3 Kvng Ro RN RN tm6
--- NOTE | 2023-07-11 00:55 | ER ---
Nurse's Notes [facility] Name: Walt Velazquez Age: 52 yrs Sex: Male : 1970 Arrival Date: 07/11/2023 Time: 00:09 Bed 7 Private MD: Diagnosis: Alcohol abuse, uncomplicated Presentation: 07/11 00:24 Chief complaint: EMS states: patient has right shoulder pain when he moves. Had a tm6 shoulder injury when he was a teenager. Coronavirus screen: Client denies travel out of the [place] in the last 14 days. Client indicates they have traveled out of the [place] in the last 14 days. Ebola Screen: Patient negative for fever greater than or equal to 101.5 degrees Fahrenheit, and additional compatible Ebola Virus Disease symptoms Patient denies exposure to infectious person. Patient denies travel to an Ebola-affected area in the 21 days before illness onset. No symptoms or risks identified at this time. Initial Sepsis Screen: Does the patient meet any 2 criteria? HR > 90 bpm. Does the patient have a suspected source of infection? No. Patient's initial sepsis screen is negative. Risk Assessment: Do you want to hurt yourself or someone else? Patient reports no desire to harm self or others. Onset of symptoms is unknown. 00:24 Method Of Arrival: EMS: [facility] tm6 00:24 Acuity: LATASHA 3 tm6 Triage Assessment: 00:26 General: Appears in no apparent distress. Behavior is cooperative. Pain: Complains of tm6 pain in posterior aspect of right shoulder Pain currently is 6 out of 10 on a pain scale. Aggravated by increased activity. EENT: No signs and/or symptoms were reported regarding the EENT system. Neuro: Level of Consciousness is awake, alert, obeys commands, Oriented to person, place, time, situation. Cardiovascular: Capillary refill < 3 seconds Patient's skin is warm and dry. Respiratory: Airway is patent Respiratory effort is even, unlabored, Respiratory pattern is regular, symmetrical. GI: Abdomen is flat, non-distended. : No signs and/or symptoms were reported regarding the genitourinary system. Derm: No signs and/or symptoms reported regarding the dermatologic system. Musculoskeletal: Reports pain in posterior aspect of right shoulder. Historical: - Allergies: 00:26 Trazodone; tm6 - PMHx: 00:26 Alcoholism; Bipolar II; Hypertensive disorder; Parkinsons; Seizure; tm6 - Immunization history:: Adult Immunizations up to date. - Social history:: Smoking status: Patient reports the use of cigarette tobacco products, smokes one-half pack cigarettes per day, Patient uses alcohol, on a daily basis. 4 20oz beers daily. Screenin:29 [facility] ED Fall Risk Assessment (Adult) History of falling in the last 3 months, tm6 including since admission No falls in past 3 months (0 pts). Abuse screen: Denies threats or abuse. Denies injuries from another. Nutritional screening: No deficits noted. Tuberculosis screening: No symptoms or risk factors identified. Assessment: 00:29 Reassessment: see triage assessment. tm6 Vital Signs: 00:24 BP 123 / 88; Pulse 122; Resp 19; Temp 98.5(O); Pulse Ox 98% on R/A; Weight 63.5 kg; tm6 Height 5 ft. 3 in. ; Pain 6/10; 00:54 BP 116 / 72; Pulse 108; Resp 18; Pulse Ox 99% ; vc1 00:24 Body Mass Index 24.80 (63.50 kg, 160.02 cm) tm6 00:24 Pain Scale: Adult tm6 ED Course: 00:11 Patient arrived in ED. vc1 00:12 Esme Wilkes MD is Attending Physician. sp3 00:26 Triage completed. tm6 00:26 Arm band placed on right wrist. tm6 00:29 Patient has correct armband on for positive identification. Bed in low position. Call tm6 light in reach. Side rails up X2. Provided Education on: plan of care. Client placed on continuous cardiac and pulse oximetry monitoring. NIBP monitoring applied. Door closed. Noise minimized. Warm blanket given. 00:29 No provider procedures requiring assistance completed. tm6 00:46 Niecy Roberto, ROBERTO is Primary Nurse. vc1 00:54 Patient did not have IV access during this emergency room visit. vc1 Administered Medications: 00:36 Drug: Ibuprofen PO 600 mg PO once Route: PO; tm6 Medication: 00:29 VIS not applicable for this client. tm6 Outcome: 00:24 Discharge ordered by . sp3 00:54 Discharged to home ambulatory, vc1 00:54 Condition: good 00:54 Discharge instructions given to patient, Instructed on discharge instructions, follow up and referral plans. Demonstrated understanding of instructions, follow-up care, 00:54 Patient left the ED. vc1 Signatures: Esme Wilkes MD MD sp3 Niecy Roberto RN RN vc1 Kvng Ro RN RN tm6
[2023-07-11 06:37] VITALS: BP 116/72; TEMP 98.5; O2SAT 99
== END ==
LOC: ER 00:09
DX: F10.10 Alcohol abuse, uncomplicated (principal); M25.511 Pain in right shoulder; Z88.8 Allergy status to other drugs, medicaments and biological substances; Z72.0 Tobacco use
CPT/HCPCS: 99284

== ENCOUNTER → 2023-07-17 | Emergency (ER) | payer SELFPAY ==
[~2023-07-17] MED LIST changes: +ASPIRIN 81 MG CHEWABLE TABLET ONE; -IBUPROFEN 200 MG TAB PO ONE; +LORazepam 2 MG/ML VIAL ONE
--- OUTSIDE RECORDS SUMMARY | 2023-07-17 11:30 | XMS REPORT | Continuity of Care Document ---
Author Name Unknown Address [address] [facility] [facility] Address [address] [facility] [address]. [address] [place] [address] Care Team Providers Care Project Reservoir Engineer Name Role Phone Pcp-None Primary Care Physician Unavailab HEMANT Adame Attending Clinician Unavailable Hemant Lopez MD Attending Clinician [phone] Pan Pinto Attending Clinician Unavailab JESSICA Gallardo Attending Clinician Unavailable Rayray Driscoll MD Attending Clinician [phone] Jessica Prado MD Attending Clinician [phone] Oswald Murphy MD Attending Clinician [phone] DIYA CHOWDHURY Attending Clinician Unavailab Diya Mackey DO Attending Clinician [phone] Fidel Cuellar Attending Clinician Unavailable DIRK YARBROUGH Attending Clinician Unavailable Leticia Rowland Attending Clinician [phone] Dirk Yarbrough MD Attending Clinician [phone] Faye Portillo LVN Attending Clinician [phone] Pia Reddy Attending Clinician Vinnie Navarro Attending Clinician Unavailable OSWALD MURPHY Admitting Clinician Unavailable Oswald Murphy MD Admitting Clinician [phone] DIYA CHOWDHURY Admitting Clinician UnavailLeticia Gaytan Admitting Clinician Unavailable JESSICA PRADO Admitting Clinician Unavailable Jessica Prado MD Admitting Clinician [phone] Payers Payer Name Policy Type Policy Number Effective Date Expirati on Date Source [facility] [id number] 2022 00:00:00 Problems Condition Name Condition Details Condition Category Status Onset Date Resolution Date Last Treatment Date Treating Clinician Comments Source Alcohol withdrawal syndrome with complicati on Alcohol withdrawal syndrome with complicati on Disease Active 08-10 00:00: 00 [facility] Type 2 diabetes mellitus with other specified complicati on Type 2 diabetes mellitus with other specified complicati on Disease Active 12-29 00:00: 00 [facility] Dyslipidem ia Dyslipidem ia Disease Active 12-29 00:00: 00 [facility] Chest pain, unspecifie d type Chest pain, unspecifie d type Disease Active 12-28 00:00: 00 [facility] Priapism Priapism Disease Active 2013-06 00:00: 00 [facility] Allergies, Adverse Reactions, Alerts Allergy Name Allergy Type Status Severity Reaction(s) Onset Date Inactive Date Treating Clinician Comments Source No Known Drug Allergie s DA Active U 4-25 00:00: 00 [facility] No Known Drug Allergie s DA Active U 0 9-16 00:00: 00 [facility] No Known Drug Allergie s DA Active U 0 3-29 00:00: 00 [facility] No Known Drug Allergie s DA Active U 2019-06 2-16 00:00: 00 [facility] No Known Drug Allergie s DA Active U 2019-06 2-15 00:00: 00 [facility] No Known Drug Allergie s DA Active U 2019-06 2-02 00:00: 00 [facility] Trazodon e Propensi ty to adverse reaction s Active Other - See comments 10-06 00:00: 00 [facility] TRAZODON E DRUG INGREDI Active Other-Cmnt 10-06 00:00: 00 [facility] Social History Social Habit Start Date Stop Date Quantity Comments Source History of tobacco use Cigarette Smoker [facility] Exposure to SARS-CoV-2 (event) 2022-11-01 00:00:00 2022-11-11 13:57:00 Not sure [facility] Tobacco use and exposure 2022-08-10 00:00:00 2022-08-10 00:00:00 User of smokeless tobacco [facility] Alcohol intake 2022-08-10 00:00:00 2022-08-10 00:00:00 Current drinker of alcohol (finding) [facility] Tobacco Comment 2022-08-10 00:00:00 2022-08-10 00:00:00 1/2 a pack a day [facility] Sex Ass[birth year] At 1970 00:00:00 1970 00:00:00 [facility] Smoking Status Start Date Stop Date Source Smokes tobacco daily 2022-08-10 00:00:00 [facility] Medications Ordered Medication Name Filled Medication Name Start Date Stop Date Current Medication? Ordering Clinician Indication Dosage Frequency Signature (SIG) Comments Components Source NaCl 0.9% (NS) bolus infusion 1,000 mL 11-11 19:45: 00 11-11 20:23 :00 No 1000mL at 999 mL/hr, 1,000 mL, IV Piggyback, ONCE, 1 dose, On Thu11/11/22 at 1445, STAT [facility] multivitami n tablet 1 tablet 08-12 15:00: 00 Yes 1{tbl} 1 tablet, Oral, DAILY, First dose on Thu08/12/22 at 0900, Until Discontinu ed, Routine [facility] foLIC acid (FOLATE) tablet 1 mg 08-12 15:00: 00 Yes 1mg 1 mg, Oral, DAILY, First dose on Thu08/12/22 at 0900, Until Discontinu ed, Routine [facility] foLIC acid 1 mg tablet 08-12 00:00: 00 09-12 04:59 :00 No [id number] 1mg Take 1 tablet by mouth in the morning for 30 days. [facility] oxazepam (SERAX) capsule 15 mg [...] Thu08/13/22 at 0600, Routine [Order 2 End] [facility] thiamine (VITAMIN B1) tablet 100 mg 08-11 16:15: 00 Yes 100mg 100 mg, Oral, DAILY, First dose on Thu08/11/22 at 1015, Until Discontinu ed, Routine [facility] enoxaparin (LOVENOX) injection 40 mg 08-10 23:00: 00 Yes 40mg 40 mg, Subcutaneo us, DAILY, First dose on Thu08/10/22 at 1700, Until Discontinu ed, Routine [facility] NaCl 0.9% (NS) IV infusion 1,000 mL 08-10 15:00: 00 Yes 1000mL at 125 mL/hr, IV Infusion, CONTINUOUS , Starting on 08/10/22 at 0900, Until Discontinu ed, Routine [facility] foLIC acid (FOLATE) 5 mg in NaCl 0.9% (NS) piggyback 08-10 15:00: 00 08-11 16:14 :47 No 5mg IV Piggyback, DAILY, First dose on 08/10/22 at 0900, Until Discontinu ed, 50 mL [facility] thiamine (VITAMIN B1) 100 mg in NaCl 0.9% (NS) piggyback 08-10 15:00: 00 08-10 16:08 :00 No 100mg IV Piggyback, DAILY, 1 dose, First dose on Thu08/10/22 at 0900, 50 mL [facility] LORazepam (ATIVAN) injection 2 mg 08-10 14:52: 57 Yes 2mg 2 mg, Slow IV Push, Q4HPRN, Starting on Thu08/10/22 at 0852, Until Discontinu ed, Routine, Seizures, Agitation, Anxiety [facility] Sliding Scale Insulin-Reg ular + Fsbg Testing 08-10 13:30: 00 Yes Subcutaneo us, AC+HS, First dose on Thu08/10/22 at 0730, Until Discontinu ed, Routine [facility] oxazepam (SERAX) capsule 15 mg 08-10 12:08: 05 Yes 15mg 15 mg, Oral, Q4HPRN, Starting on Thu08/10/22 at 0608, Until Discontinu ed, Routine, Only while awake for DBP equal to or greater than 100, HR equal to or greater than 100. [facility] dextrose 10% (D10W) bolus infusion [...] blood glucose is < 80 mg/dL, repeat.
[facility] glucagon (GLUCAGEN DIAGNOSTIC KIT) injection 1 mg 08-10 12:03: 20 Yes 1mg 1 mg, Intramuscu lar, PRN, Starting on Thu08/10/22 at 0603, Until Discontinu ed, JACIEL, Blood Glucose < or = 70 mg/dL and patient is NPO, unable to swallow or has mental changes. [facility] ondansetron (ZOFRAN (PF)) injection 4 mg 08-10 12:02: 53 Yes 4mg 4 mg, Slow IV Push, Q6HPRN, Starting on Thu08/10/22 at 0602, Until Discontinu ed, Routine, Nausea and Vomiting (N/V) [facility] ibuprofen (MOTRIN IB) tablet 200 mg 08-10 12:02: 45 Yes 200mg 200 mg, Oral, Q6HPRN, Starting on Thu08/10/22 at 0602, Until Discontinu ed, Routine, Pain (scale 1-3) [facility] NaCl 0.9% (NS) bolus infusion 1,000 mL 08-10 10:15: 00 08-10 13:00 :00 No 1000mL at 999 mL/hr, 1,000 mL, IV Infusion, ONCE, 1 dose, On Thu08/10/22 at 0415, STAT [facility] LORazepam (ATIVAN) injection 0.5 mg 08-10 09:15: 00 08-10 09:19 :00 No .5mg 0.5 mg, Slow IV Push, ONCE, 1 dose, On Thu08/10/22 at 0315, STAT [facility] LORazepam (ATIVAN) injection 1 mg 08-10 08:00: 00 08-10 07:05 :00 No 1mg 1 mg, Slow IV Push, ONCE NOW, 1 dose, On Thu08/10/22 at 0200, STAT [facility] thiamine (VITAMIN B1) injection 100 mg 08-10 06:45: 00 08-10 06:52 :00 No 100mg 100 mg, Intravenou s, ONCE, 1 dose, On Thu08/10/22 at 0045, JACIEL [facility] LORazepam (ATIVAN) injection 1 mg 08-10 05:15: 00 08-10 05:22 :00 No 1mg 1 mg, Slow IV Push, ONCE, 1 dose, On 08/09/22 at 2315, STAT [facility] ketorolac (TORADOL) injection 15 mg 2021-06 16:00: 00 04-06 14:50 :00 No 15mg 15 mg, Slow IV Push, ONCE, 1 dose, On 04/06/22 at 1100, JACIEL [facility] ondansetron (ZOFRAN (PF)) injection 4 mg 2021-06 15:45: 00 04-06 14:50 :00 No 4mg 4 mg, Slow IV Push, ONCE, 1 dose, [facility] 04/06/22 at 1045[facility] 15 mg 12-31 06:28: 17 01-01 06:29 :00 No 15mg 15 mg, Oral, Q12H TAPER, 2 doses, First dose on Thu12/31/21 at 0130, Last dose on Thu12/31/21 at 1330, Routine [facility] multivitami n tablet 12-31 00:00: 00 Yes [id number] 1{tbl} Take 1 tablet by mouth in the morning. [facility] thiamine 100 mg tablet 12-31 00:00: 00 Yes [id number] 100mg Take 1 tablet by mouth in the morning. [facility] aspirin 81 mg chewable tablet 12-31 00:00: 00 Yes [id number] 81mg Take 1 tablet by mouth in the morning. [facility] multivitami n tablet 12-31 00:00: 00 Yes [id number] 1{tbl} Take 1 tablet by mouth in the morning. [facility] thiamine 100 mg tablet 12-31 00:00: 00 Yes [id number] 100mg Take 1 tablet by mouth in the morning. [facility] aspirin 81 mg chewable tablet 12-31 00:00: 00 Yes [id number] 81mg Take 1 tablet by mouth in the morning. [facility] multivitami n tablet 12-31 00:00: 00 Yes [id number] 1{tbl} Take 1 tablet by mouth in the morning. [facility] thiamine 100 mg tablet 12-31 00:00: 00 Yes [id number] 100mg Take 1 tablet by mouth in the morning. [facility] aspirin 81 mg chewable tablet 12-31 00:00: 00 Yes [id number] 81mg Take 1 tablet by mouth in the morning. [facility] multivitami n tablet 12-31 00:00: 00 Yes [id number] 1{tbl} Take 1 tablet by mouth in the morning. [facility] thiamine 100 mg tablet 12-31 00:00: 00 Yes [id number] 100mg Take 1 tablet by mouth in the morning. [facility] aspirin 81 mg chewable tablet 12-31 00:00: 00 Yes [id number] 81mg Take 1 tablet by mouth in the morning. [facility] multivitami n tablet 12-31 00:00: 00 Yes [id number] 1{tbl} Take 1 tablet by mouth in the morning. [facility] thiamine 100 mg tablet 12-31 00:00: 00 Yes [id number] 100mg Take 1 tablet by mouth in the morning. [facility] aspirin 81 mg chewable tablet 12-31 00:00: 00 Yes [id number] 81mg Take 1 tablet by mouth in the morning. [facility] multivitami n tablet 12-31 00:00: 00 Yes [id number] 1{tbl} Take 1 tablet by mouth in the morning. [facility] thiamine 100 mg tablet 12-31 00:00: 00 Yes [id number] 100mg Take 1 tablet by mouth in the morning. [facility] aspirin 81 mg chewable tablet 12-31 00:00: 00 Yes [id number] 81mg Take 1 tablet by mouth in the morning. [facility] foLIC acid 1 mg tablet 12-31 00:00: 00 01-31 04:59 :00 No [id number] 1mg Take 1 tablet by mouth in the morning for 30 days. [facility] foLIC acid 1 mg tablet 12-31 00:00: 00 01-31 04:59 :00 No [id number] 1mg Take 1 tablet by mouth in the morning for 30 days. [facility] foLIC acid 1 mg tablet 12-31 00:00: 00 01-31 04:59 :00 No [id number] 1mg Take 1 tablet by mouth in the morning for 30 days. [facility] metFORMIN 500 mg tablet 12-30 00:00: 00 Yes [id number] 500mg Take 1 tablet by mouth in the morning and 1 tablet in the evening. Take with meals. [facility] metFORMIN 500 mg tablet 12-30 00:00: 00 Yes [id number] 500mg Take 1 tablet by mouth in the morning and 1 tablet in the evening. Take with meals. [facility] metFORMIN 500 mg tablet 12-30 00:00: 00 Yes [id number] 500mg Take 1 tablet by mouth in the morning and 1 tablet in the evening. Take with meals. [facility] metFORMIN 500 mg tablet 12-30 00:00: 00 Yes [id number] 500mg Take 1 tablet by mouth in the morning and 1 tablet in the evening. Take with meals. [facility] metFORMIN 500 mg tablet 12-30 00:00: 00 Yes [id number] 500mg Take 1 tablet by mouth in the morning and 1 tablet in the evening. Take with meals. [facility] metFORMIN 500 mg tablet 12-30 00:00: 00 Yes [id number] 500mg Take 1 tablet by mouth in the morning and 1 tablet in the evening. Take with meals. [facility] aspirin chewable tablet 81 mg 12-29 14:00: 00 Yes 81mg 81 mg, Oral, DAILY, First dose on 12/29/21 at 0900, Until Discontinu ed, Routine [facility] sulfur hexafluorid e microsphr (LUMASON) injection 5 mL 12-29 13:45: 00 12-29 13:45 :00 No [id number] 5mL 5 mL, Intravenou s, ONCE, 1 dose, On 12/29/21 at 0845, Routine
membership director approving Restricted medication : STEFANIE GORMAN [facility] enoxaparin (LOVENOX) injection 40 mg 12-29 13:00: 00 Yes 40mg 40 mg, Subcutaneo us, Q24H, First dose on 12/29/21 at 0800, Until Discontinu ed, Routine [facility] Sliding Scale Insulin - Lispro (HumaLOG) + Fsbg Testing 12-29 13:00: 00 Yes Subcutaneo us, TID MEALS+HS, First dose on 12/29/21 at 0800, Until Discontinu ed, Routine [facility] diazePAM (VALIUM) injection 10 mg 12-29 05:30: 00 12-29 04:40 :00 No 10mg 10 mg, Intravenou s, ONCE, 1 dose, On 12/29/21 at 0030, Routine [facility] diazePAM (VALIUM) injection 10 mg 12-29 04:15: 00 12-29 03:17 :00 No 10mg 10 mg, Intravenou s, ONCE, 1 dose, On 12/28/21 at 2315, Routine [facility] diazePAM (VALIUM) injection 5 mg 12-29 03:45: 01 Yes 5mg 5 mg, Intravenou s, QIDPRN, Starting on 12/28/21 at 2245, Until Discontinu ed, Routine, Seizures, Agitation [facility] foLIC acid (FOLATE) tablet 1 mg 12-29 03:45: 00 Yes 1mg 1 mg, Oral, DAILY, First dose on 12/28/21 at 2245, Until Discontinu ed, Routine [facility] thiamine (VITAMIN B1) tablet 100 mg 12-29 03:45: 00 Yes 100mg 100 mg, Oral, DAILY, First dose (after last modificati on) on 12/28/21 at 2245, Until Discontinu ed, Routine [facility] glucagon (GLUCAGEN DIAGNOSTIC KIT) injection 1 mg 12-29 03:42: 19 Yes 1mg 1 mg, Intramuscu lar, PRN, Starting on 12/28/21 at 2242, Until Discontinu ed, JACIEL, Blood Glucose < or = 70 mg/dL and patient is unable to swallow or has mental changes. [facility] dextrose 10% (D10W) bolus infusion [...] blood glucose is < 80 mg/dL, repeat.
[facility] LORazepam (ATIVAN) injection 1 mg 12-29 03:30: 00 12-29 02:32 :00 No 1mg 1 mg, Intravenou s, ONCE, 1 dose, On 12/28/21 at 2230, Routine
Is the medication being used for status epilepticu s? No [facility] oxazepam (SERAX) capsule 15 mg 12-29 00:28: 20 Yes 15mg 15 mg, Oral, Q4HPRN, Starting on 12/28/21 at 1928, Until Discontinu ed, Routine, Only while awake for DBP equal to or greater than 100, HR equal to or greater than 100. [facility] ondansetron (ZOFRAN (PF)) injection 4 mg 12-29 00:23: 47 Yes 4mg 4 mg, Slow IV Push, Q6HPRN, Starting on 12/28/21 at 1923, Until Discontinu ed, Routine, Nausea and Vomiting (N/V) [facility] acetaminoph en (TYLENOL) tablet 650 mg 12-29 00:23: 37 Yes 650mg 650 mg, Oral, Q6HPRN, Starting on 12/28/21 at 192, Until Discontinu ed, Routine, Pain (scale 1-3), Temp > 38.5 C [facility] chlordiazeP OXIDE (LIBRIUM) capsule 25 mg 12-28 23:15: 00 12-28 23:24 :00 No 25mg 25 mg, Oral, ONCE, 1 dose, On 12/28/21 at 1815, [facility] NaCl 0.9% (NS) bolus infusion 2,000 mL 12-28 22:45: 00 12-28 23:18 :00 No 2000mL at 999 mL/hr, 2,000 mL, IV Infusion, ONCE, 1 dose, On 12/28/21 at 1745, [facility] LORazepam (ATIVAN) injection 1 mg 12-28 20:45: 00 12-28 20:49 :00 No 1mg 1 mg, Slow IV Push, ONCE, 1 dose, On 12/28/21 at 1545, STAT
Is the medication being used for status epilepticu s? No [facility] acetaminoph en (TYLENOL) 500 mg tablet 10-06 00:00: 00 Yes 500mg Take 1 Tab by mouth every 6 (six) hours as needed for Pain. [facility] acetaminoph en (TYLENOL) 500 mg tablet 10-06 00:00: 00 Yes 500mg Take 1 Tab by mouth every 6 (six) hours as needed for Pain. [facility] acetaminoph en (TYLENOL) 500 mg tablet 10-06 00:00: 00 Yes 500mg Take 1 Tab by mouth every 6 (six) hours as needed for Pain. [facility] acetaminoph en (TYLENOL) 500 mg tablet 10-06 00:00: 00 Yes 500mg Take 1 Tab by mouth every 6 (six) hours as needed for Pain. [facility] acetaminoph en (TYLENOL) 500 mg tablet 10-06 00:00: 00 Yes 500mg Take 1 Tab by mouth every 6 (six) hours as needed for Pain. [facility] acetaminoph en (TYLENOL) 500 mg tablet 10-06 00:00: 00 Yes 500mg Take 1 Tab by mouth every 6 (six) hours as needed for Pain. [facility] Vital Signs Vital Name Observation Time Observation Value Comments S ource Systolic blood pressure 2022-11-11 20:31:31 116 mm[Hg] [facility] Diastolic blood pressure 2022-11-11 20:31:31 77 mm[Hg] [facility] Heart rate 2022-11-11 20:31:31 84 /min [facility] Respiratory rate 2022-11-11 20:31:31 12 /min [facility] Oxygen saturation in Arterial blood by Pulse oximetry 2022-11-11 20:31:31 90 /min [facility] Body temperature 2022-11-11 18:49:00 37.11 Theresa [facility] Body height 2022-11-11 18:49:00 160 cm [facility] Body weight 2022-11-11 18:49:00 68.04 kg [facility] BMI 2022-11-11 18:49:00 26.57 kg/m2 [facility] Body temperature 2022-08-11 14:00:00 36.5 Theresa [facility] Systolic blood pressure 2022-08-11 10:00:00 116 mm[Hg] [facility] Diastolic blood pressure 2022-08-11 10:00:00 71 mm[Hg] [facility] Heart rate 2022-08-11 10:00:00 70 /min [facility] Respiratory rate 2022-08-11 10:00:00 16 /min [facility] Body weight 2022-08-11 10:00:00 65.499 kg [facility] BMI 2022-08-11 10:00:00 25.58 kg/m2 [facility] Oxygen saturation in Arterial blood by Pulse oximetry 2022-08-11 10:00:00 100 /min [facility] Body height 2022-08-10 22:12:00 160 cm [facility] Systolic blood pressure 2022-04-06 16:00:00 125 mm[Hg] [facility] Diastolic blood pressure 2022-04-06 16:00:00 75 mm[Hg] [facility] Heart rate 2022-04-06 16:00:00 87 /min [facility] Respiratory rate 2022-04-06 16:00:00 22 /min [facility] Oxygen saturation in Arterial blood by Pulse oximetry 2022-04-06 16:00:00 98 /min [facility] Body temperature 2022-04-06 14:41:00 37 Theresa [facility] Body height 2022-04-06 14:41:00 160 cm [facility] Body weight 2022-04-06 14:41:00 63.504 kg [facility] BMI 2022-04-06 14:41:00 24.80 kg/m2 [facility] Systolic blood pressure 2022-01-20 02:27:00 121 mm[Hg] [facility] Diastolic blood pressure 2022-01-20 02:27:00 75 mm[Hg] [facility] Heart rate 2022-01-20 02:27:00 79 /min [facility] Respiratory rate 2022-01-20 02:27:00 12 /min [facility] Oxygen saturation in Arterial blood by Pulse oximetry 2022-01-20 02:27:00 98 /min [facility] Body temperature 2022-01-19 22:19:00 36.44 Theresa [facility] Body weight 2022-01-19 22:19:00 60.328 kg [facility] BMI 2022-01-19 22:19:00 23.56 kg/m2 [facility] Systolic blood pressure 2021-12-30 20:52:00 134 mm[Hg] [facility] Diastolic blood pressure 2021-12-30 20:52:00 76 mm[Hg] [facility] Heart rate 2021-12-30 20:52:00 67 /min [facility] Body temperature 2021-12-30 20:26:00 36.67 Theresa [facility] Oxygen saturation in Arterial blood by Pulse oximetry 2021-12-30 20:26:00 99 /min [facility] Respiratory rate 2021-12-30 16:21:00 18 /min [facility] Body weight 2021-12-30 08:27:00 60.464 kg [facility] BMI 2021-12-30 08:27:00 23.61 kg/m2 [facility] Body height 2021-12-29 01:29:00 160 cm [facility] Procedures Procedure Date / Time Performed Performing Clinician Source MAGNESIUM 2022-11-11 19:05:00 Hemant Lopez [facility] BASIC METABOLIC PANEL (NA, K, CL, CO2, GLUCOSE, BUN, CREATININE, CA) 2022-11-11 19:05:00 Hemant Lopez [facility] ETHANOL 2022-11-11 19:05:00 Hemant Lopez [facility] CBC WITH DIFF 2022-11-11 19:05:00 Hemant Lopez [facility] POCT GLUCOSE (AUTOMATED) 2022-08-11 13:36:00 Arvind Prado [facility] PHOSPHORUS 2022-08-11 10:35:00 Jessica Prado [facility] MAGNESIUM 2022-08-11 10:35:00 Jessica Prado [facility] AMMONIA, PLASMA 2022-08-11 10:35:00 [facility] COMP. METABOLIC PANEL ([id number]) 2022-08-11 10:35:00 Jessica Prado [facility] CBC WITH DIFF 2022-08-11 10:35:00 Oswald Murphy [facility] POCT GLUCOSE (AUTOMATED) 2022-08-11 02:15:00 Arvind Prado [facility] POCT GLUCOSE (AUTOMATED) 2022-08-10 23:10:00 Arvind Prado [facility] POCT GLUCOSE (AUTOMATED) 2022-08-10 18:20:00 Arvind Prado gregoria [facility] POCT GLUCOSE (AUTOMATED) 2022-08-10 14:11:00 Arvind Prado gregoria [facility] POCT GLUCOSE (AUTOMATED) 2022-08-10 10:59:00 Gopal Driscoll [facility] COVID-19 (ID NOW RAPID TESTING) 2022-08-10 07:17:00 Rayray Driscoll [facility] LAB ONLY COVID INTERPRETATION 2022-08-10 07:17:00 Rayray Driscoll [facility] HB ECG ROUTINE & RHYTHM STRIP 2022-08-10 06:03:48 Rayray Driscoll [facility] URINALYSIS 2022-08-10 05:46:00 Rayray Driscoll [facility] URINE DRUG (IMMUNOASSAY) - COMPREHENSIVE DRUG SCREEN W/O REFLEX 2022-08-10 05:45:00 Rayray Driscoll [facility] CREATINE KINASE 2022-08-10 05:16:00 [facility] LIP[facility] 2022-08-10 05:16:00 Rayray Driscoll [facility] MAGNESIUM 2022-08-10 05:16:00 Rayray Driscoll [facility] TROPONIN I 2022-08-10 05:16:00 Rayray Driscoll [facility] COMP. METABOLIC PANEL ([id number]) 2022-08-10 05:16:00 Rayray Driscoll [facility] ETHANOL 2022-08-10 05:16:00 Rayray Driscoll [facility] CBC WITH DIFF 2022-08-10 05:16[facility] 2022-08-10 05:16[facility] 2022-08-10 04:52:00 Rayray Driscoll [facility] XR CHEST 1 VW 2022-04-06 14:51:50 [facility] 2022-04-06 14:42:00 Diya Chowdhury [facility] TROPONIN I 2022-04-06 14:42:00 Diya Chowdhury [facility] COMP. METABOLIC PANEL ([id number]) 2022-04-06 14:42:00 Diya Chowdhury [facility] CBC WITH DIFF 2022-04-06 14:42:00 Diya Chowdhury [facility] PROTHROMBIN TIME / INR 2022-04-06 14:42:00 Diya Chowdhury [facility] ACTIVATED PARTIAL THRMPLAS NELDA 2022-04-06 14:42:00 Diya Chowdhury [facility] LACTIC ACID WHOLE BLOOD 2022-01-20 00:22:00 Leticia Baldwin [facility] URINE DRUG (IMMUNOASSAY) - COMPREHENSIVE DRUG SCREEN 2022-01-19 23:10:00 Leticia Baldwin [facility] URINALYSIS 2022-01-19 23:10:00 Leticia Baldwin [facility] TROPONIN I 2022-01-19 23:00:00 Leticia Baldwin [facility] COMP. METABOLIC PANEL ([id number]) 2022-01-19 23:00:00 Leticia Baldwin [facility] LITHIUM 2022-01-19 23:00:00 Leticia Baldwin [facility] ETHANOL 2022-01-19 23:00:00 Leticia Baldwin [facility] CBC WITH DIFF 2022-01-19 23:00:00 Leticia Baldwin [facility] COVID-19 (ID NOW RAPID TESTING) 2022-01-19 23:00:00 Leticia Baldwin [facility] CT HEAD WO CONTRAST 2022-01-19 22:49:00 Leticia Baldwin [facility] XR CHEST 1 VW 2022-01-19 22:41:00 Leticia Baldwin [facility] POCT GLUCOSE (AUTOMATED) 2022-01-19 22:25:00 Leticia Baldwin [facility] POCT GLUCOSE (AUTOMATED) 2021-12-30 21:55:00 Arvind Prado [facility] POCT GLUCOSE (AUTOMATED) 2021-12-30 16:21:00 Arvind Prado [facility] POCT GLUCOSE (AUTOMATED) 2021-12-30 12:30:00 Arvind Prado gregoria [facility] HEPATIC FUNCTION PANEL ([id number]) (ALB,T.PRO,BILI T,BU/BC,ALT,AST,ALK PHOS) 2021-12-30 09:28:00 Maira Gaitan [facility] POCT GLUCOSE (AUTOMATED) 2021-12-30 02:11:00 Arvind Prado [facility] POCT GLUCOSE (AUTOMATED) 2021-12-29 21:41:00 Arvind Prado [facility] POCT GLUCOSE (AUTOMATED) 2021-12-29 16:37:00 Arvind Prado [facility] TRANSTHORACIC ECHO (TTE) COMPLETE W/ CONTRAST 2021-12-29 13:05:00 Jessica Prado [facility] POCT GLUCOSE (AUTOMATED) 2021-12-29 12:41:00 Arvind Prado [facility] TROPONIN I 2021-12-29 09:42:00 Jessica Prado [facility] TROPONIN I 2021-12-29 04:55:[facility] 2021-12-28 21:18:22 Poppy Renteria [facility] AMMONIA, PLASMA 2021-12-28 21:00:00 Pia Renteria [facility] COVID-19 (ID NOW RAPID TESTING) 2021-12-28 20:42:00 Pia Renteria [facility] LAB ONLY COVID INTERPRETATION 2021-12-28 20:42:00 Pia Renteria [facility] URINE DRUG (IMMUNOASSAY) - COMPREHENSIVE DRUG SCREEN W/O REFLEX 2021-12-28 20:42:00 Pia Renteria [facility] URINALYSIS 2021-12-28 20:40:00 [facility]-B[facility] 2021-12-28 20:40:00 Corina Renteria [facility] TROPONIN I 2021-12-28 20:40:00 Pia Renteria [facility] THYROID STIMULATING HORMONE 2021-12-28 20:40:00 Jessica Prado [facility] COMP. METABOLIC PANEL (52504) 2021-12-28 20:40:00 Pia Renteria [facility] LIPID PANEL (71675)(TOTAL CHOLESTEROL, TRIGLYCERIDES, HDL) 2021-12-28 20:40:00 Demetrius Langford [facility] ETHANOL 2021-12-28 20:40:00 Demetrius Langford [facility] CBC WITH DIFF 2021-12-28 20:40:00 Pia Renteria [facility] GLYCOSYLATED HEMOGLOBIN (A1C) 2021-12-28 20:40:00 Jessica Prado [facility] PROTHROMBIN TIME / INR 2021-12-28 20:40:00 Lesly Renteria [facility] XR CHEST 1 VW 2021-12-28 20:16:00 Pia Renteria [facility] HB ECG ROUTINE & RHYTHM STRIP 2021-12-28 20:04:59 Pia Renteria [facility] Encounters Start Date/Time End Date/Time Encounter Type Admission Type Attending [facility] Care Department Encounter ID Source 2021-09-17 16:45:00 Inpatient [facility] [id number] [facility] 2020-06-06 16:07:00 Inpatient [facility] [id number] [facility] 2020-06-06 06:20:00 Inpatient [facility] [id number] [facility] 2020-06-05 19:35:00 Inpatient [facility] [id number] [facility] 2020-05-23 19:53:00 Inpatient [facility] [id number] [facility] 2020-05-23 19:53:00 Inpatient [facility] [id number] [facility] 2022-11-11 13:50:00 2022-11-11 16:07:00 Emergency X ERNIE, HEMANT [facility] ERT [id number] [facility] 2022-11-11 13:50:00 2022-11-11 16:07:00 [facility] 1.2.840.114 350.1.13.10 [id number] [id number] [facility] 2022-10-14 20:59:00 2022-10-14 20:59:00 Emergency [facility] [id number] [facility] 2022-10-14 20:59:00 2022-10-14 20:59:00 Emergency Emergency [place] [facility] [id number] [facility] 2022-08-09 22:59:00 2022-08-11 13:02:00 Outpatient X JESSICA PRADO [facility] MARGO [id number] [facility] 2022-08-09 22:59:00 2022-08-11 13:02:00 Emergency Rayray Driscoll Jelani Edionwe [facility] 1.2.840.114 350.1.13.10 4.2.7.2.686 [id number] [facility] 2022-04-06 09:38:00 2022-04-06 11:42:00 Emergency X DIYA CHOWDHURY [facility] ERT [id number] [facility] 2022-04-06 09:38:00 2022-04-06 11:42:00 Emergency Diya Chowdhury [facility] [id number] 350.1.13.10 4.2.7.2.686 [id number] [facility] 2022-03-07 12:38:00 2022-03-07 12:38:00 Emergency [facility] [id number] [place] [address] 2022-03-07 12:38:00 2022-03-07 12:38:00 Emergency Emergency Fidel Cuellar [facility] [id number] [facility] 2022-01-19 17:18:00 2022-01-19 22:00:00 Emergency X DIRK YARBROUGH [facility] ERT [id number] [facility] 2022-01-19 17:18:00 2022-01-19 22:00:00 Emergency Leticia Baldwin Julio C [facility] 1.2.840.114 350.1.13.10 4.2.7.2.686 [id number] [facility] 2021-12-31 00:00:00 2021-12-31 00:00:00 Transition of Care Faye Portillo 1.2.840.114 350.1.13.10 4.2.7.2.686 [id number] [facility] 2021-12-28 14:53:00 2021-12-30 17:42:00 Inpatient X JESSICA PRADO [facility] [id number] [facility] 2021-12-28 14:53:00 2021-12-30 17:42:00 Hospital Encounter Pia Renteria Jelani [facility] 1.2.840.114 350.1.13.10 4.2.7.2.686 [id number] [facility] 2021-09-17 16:47:00 2021-09-17 16:47:00 Emergency [facility] [id number] [facility] 2020-06-06 16:07:00 2020-06-06 16:07:00 Emergency [facility] [id number] [facility] Results Test Description Test Time Test Comments Results Resul t Comments Source ETHANOL 2022-11-11 19:45:56 ALCOHOL<10mg/dL0 11/11/2022 2:45 [facility] Qkmxjxqv43-456 Toxic>100 Depression of NETWORK SUPPORT SPECIALIST>400 [facility] 19:41:47* Test Item Value Reference Range Interpretation Comme nts MAGNESIUM (test code = 1447741643) 1.8 mg/dL 1.7-2.4 Lab Interpretation (test cod e = 49518-8) Normal [facility] [id number] 19:25:26* Test Item Value Reference Range Interpretation Comme nts WBC (test code = 6690-2) 6.82 See_Comment [Automated wutabouta ge] The system which generated this result transmitted reference range: 4.20 - 10.70 10*3/?L. The reference range was not used to interpret this result as normal/abnormal. RBC (test code = 789-8) 4.98 See_Comment [Automated wutabouta ge] The system which generated this result [...] 33.9 g/dL 31.2-35.0 RDW-SD (test code = 95217-5) 46.0 fL 38.5-51.6 RDW-CV (test code = 788-0) 13.5 % 12.1-15.4 PLT (test code = 777-3) 237 See_Comment [Automated messa ge] The system which generated this result transmitted reference range: 150 - 328 10*3/?L. The reference range was not used to interpret this result as normal/abnormal. MPV (test code = 04471-8) 8.9 fL 9.8-13.0 L NRBC/100 WBC (test code = 6403626939) 0.0 See_Comment [Automated [employer] ssage] The system which generated this result transmitted reference range: 0.0 - 10.0 /100 WBCs. The reference range was not used to interpret this result as normal/abnormal. NRBC x10^3 (test code = 8152617594) See_Comment [Automated wutabouta ge] The system which generated this result transmitted reference range: 10*3/?L. The reference range was not used to interpret this result as normal/abnormal. GRAN MAT (NEUT) % (test code = 770-8) 71.2 % IMM GRAN % (test code = 0389473107) 0.30 % LYMPH % (test code = 736-9) 18.2 % MONO % (test code = 5905-5) 8.4 % EOS % (test code = 713-8) 1.0 % BASO % (test code = 706-2) 0.9 % GRAN MAT x10^3(ANC) (test code = 5146762687) 4.86 10*3/uL 1.99-6.95 IMM GRAN x10^3 (test code = 7294613372) 0.00-0.06 LYMPH x10^3 (test code = 731-0) 1.24 10*3/uL 1.09-3.23 MONO x10^3 (test code = 742-7) 0.57 10*3/uL 0.36-1.02 EOS x10^3 (test code = 711-2) 0.07 10*3/uL 0.06-0.53 BASO x10^3 (test code = 704-7) 0.06 10*3/uL 0.01-0.09 Lab Interpretation (test code = 65789-4) [facility]normal [facility] Urinal[facility] Rflx Cult/Xkklq0075-76-63 22:20:00* Test Item Value Reference Range Interpretation Comme nts Color,Urine (test code = UCOL) Yellow Yellow Clarity,Urine (test code = UCLAR) Clear Clear Ph, Urine (test code = UPH) 7.0 5.0-9.0 N Specific [place],Urine (test code = USG) 1.020 1.005-1.030 N [...] code = ULEU) Negative mg/dL Negative Drug Screen,Mtyjr6278-71-49 22:20:00* Test Item Value Reference Range Interpretation [...] UPROP) Negative Negative Complete Blood Count Auto [id number] 21:21:00* Test Item Value Reference Range Interpretation [...] code = NRBCP) 0 % Comprehensive Metabolic Rvwbg3430-75-70 21:21:00* Test Item Value Reference Range Interpretation [...] a race coefficient. Additional information canbe found at:[email or web address] [email or web address]_flyer 5.pdf ([email or web address]) [Automated message] The system [...] = ALP) 134 U/L 46-116 H Ethanol Cymtp0212-28-04 21:21:00* Test Item Value Reference Range Interpretation Comme nts Ethanol (test code = ETOH) < 3 mg/dL The pharmacologi yudy response to blood alcohol levels mayvary from individual to individual. The fatal concentrationhas been reported to be >400mg/dL. POCT GLUCOSE (AUTOMATED)2022-08-11 13:40:35* Test Item Value Reference Range Interpretation Comme nts POCT GLU (test code = 9389781490) 121 mg/dL 70-110 H Lab Interpretation (test cod e = 42070-2) Abnormal [facility] GLUCOSE (AUTOMATED)2022-08-11 02:18:58* Test Item Value Reference Range Interpretation Comme nts POCT GLU (test code = 9012708939) 183 mg/dL 70-110 H Lab Interpretation (test cod e = 21068-3) Abnormal [facility] GLUCOSE (AUTOMATED)2022-08-10 23:16:11* Test Item Value Reference Range Interpretation Comme nts POCT GLU (test code = 2440324910) 176 mg/dL 70-110 H Lab Interpretation (test cod e = 94082-7) Abnormal [facility] GLUCOSE (AUTOMATED)2022-08-10 18:22:51* Test Item Value Reference Range Interpretation Comme nts POCT GLU (test code = 5543944574) 165 mg/dL 70-110 H Lab Interpretation (test cod e = 18927-4) Abnormal [facility] GLUCOSE (AUTOMATED)2022-08-10 14:18:05* Test Item Value Reference Range Interpretation Comme nts POCT GLU (test code = 2203361065) 138 mg/dL 70-110 H Lab Interpretation (test cod e = 46167-5) Abnormal [facility] GLUCOSE (AUTOMATED)2022-08-10 11:01:21* Test Item Value Reference Range Interpretation Comme nts POCT GLU (test code = 1666364441) 143 mg/dL 70-110 H Lab Interpretation (test cod e = 75465-6) Abnormal [facility] [id number] 06:51:18* Test Item Value Reference Range Interpretation Comme nts TROPONIN I (test code = 0049853982) 0.008 ng/mL <=0.034 JUAN ALBERTO (test code [...] of biotin. Lab Interpretation (test code = 35343-2) Normal [facility] [id number]-[id number] 06:47:37* Test Item Value Reference Range Interpretation Comme nts NT-proBNP (test code = 9675085068) 37 pg/mL <=125 JUAN ALBERTO (test code = JUAN ALBERTO) Biotin has been reported to cause a negative bias, interpret results relative to patient's use of biotin. Lab Interpretation (test code = 13758-5) Normal [facility]2023-02-19 06:25:52 ALCOHOL<10mg/dL08/10/2022 12:25 [facility] Vdwevbox20-702 Toxic>100 Depression of NETWORK SUPPORT SPECIALIST>400 [facility] HospitalCOMP. METABOLIC PANEL (08287)2022-08-10 06:19:15* Test Item Value Reference Range Interpretation Comme nts NA (test code = 6977891362) 135 mmol/L 135-145 K (test code = 1243870096) 4.3 mmol/L 3.5-5.0 CL (test code = 7779165802) 98 mmol/L 98-108 CO2 TOTAL (test code = 3061911465) 30 mmol/L 23-31 AGAP (test code = 9480003904) 7 2-16 BUN (test code = 8978014807) 11 mg/dL 7-23 GLUCOSE (test code = 5710340289) 153 mg/dL 70-110 H CREATININE (test code = 6580937745) 0.77 mg/dL 0.60-1.25 TOTAL BILI (test code = 6132644366) 0.9 mg/dL 0.1-1.1 CALCIUM (test code = 8673812335) 10.0 mg/dL 8.6-10.6 T PROTEIN (test code = 6117976689) 7.7 g/dL 6.3-8.2 ALBUMIN (test code = 4227374995) 4.6 g/dL 3.5-5.0 ALK PHOS (test code = 5685210883) 92 U/L 34-122 ALTv (test code = 1742-6) 35 U/L 5-50 AST(SGOT) (test code = 2769907037) 42 U/L 13-40 H eGFR (test code = 1686644230) 106.1 mL/min/1.73m2 JUAN ALBERTO (test code = [...] imaging tests). Lab Interpretation (test code = 18065-6) Abnormal [facility]-19 06:19:15* Test Item Value Reference Range Interpretation Comme nts MAGNESIUM (test code = 7286665294) 2.2 mg/dL 1.7-2.4 Lab Interpretation (test cod e = 83883-2) Normal [facility]2023-[facility]-19 06:18:55* Test Item Value Reference Range Interpretation Comme nts LIPASE (test code = 5657597968) 18 U/L 0-220 Lab Interpretation (test cod e = 39487-8) Normal [facility]wood[facility]AT[facility] [id number] 06:18:55* Test Item Value Reference Range Interpretation Comme nts CK (test code = 5151153174) 174 U/L 33-194 Lab Interpretation (test cod e = 08075-6) Normal [facility] WITH [id number] 06:02:35* Test Item Value Reference Range Interpretation Comme nts WBC (test code = 6690-2) 7.50 See_Comment [Automated wutabouta [employer]] The system which generated this result transmitted reference range: 4.20 - 10.70 10*3/?L. The reference range was not used to interpret this result as normal/abnormal. RBC (test code = 789-8) 4.80 See_Comment [Automated wutabouta [employer]] The system which generated this result transmitted [...] 32.4 g/dL 31.2-35.0 RDW-SD (test code = 99297-4) 50.2 fL 38.5-51.6 RDW-CV (test code = 788-0) 14.3 % 12.1-15.4 PLT (test code = 777-3) 241 See_Comment [Automated messa ge] The system which generated this result transmitted reference range: 150 - 328 10*3/?L. The reference range was not used to interpret this result as normal/abnormal. MPV (test code = 84257-8) 8.6 fL 9.8-13.0 L NRBC/100 WBC (test code = 8921503502) 0.0 See_Comment [Automated me ssage] The system which generated this result transmitted reference range: 0.0 - 10.0 /100 WBCs. The reference range was not used to interpret this result as normal/abnormal. NRBC x10^3 (test code = 5017556598) See_Comment [Automated messa ge] The system which generated this result transmitted reference range: 10*3/?L. The reference range was not used to interpret this result as normal/abnormal. GRAN MAT (NEUT) % (test code = 770-8) 63.9 % IMM GRAN % (test code = 8429392607) 0.50 % LYMPH % (test code = 736-9) 17.6 % MONO % (test code = 5905-5) 16.5 % EOS % (test code = 713-8) 0.7 % BASO % (test code = 706-2) 0.8 % GRAN MAT x10^3(ANC) (test code = 1356697793) 4.79 10*3/uL 1.99-6.95 IMM GRAN x10^3 (test code = 1930995753) 0.04 10*3/uL 0.00-0.06 LYMPH x10^3 (test code = 731-0) 1.32 10*3/uL 1.09-3.23 MONO x10^3 (test code = 742-7) 1.24 10*3/uL 0.36-1.02 H EOS x10^3 (test code = 711-2) 0.05 10*3/uL 0.06-0.53 L BASO x10^3 (test code = 704-7) 0.06 10*3/uL 0.01-0.09 Lab Interpretation (test code = 35093-1) Abnormal [facility] [id number] 15:15:32* Test Item Value Reference Range Interpretation Comments TROPONIN I (test code = 0821896462) 0.007 ng/mL See_Comment [Automated message] The system [...] of biotin. Lab Interpretation (test code = 73102-1) Normal [facility]wood[facility]PTT2022-10-16 15:08:29* Test Item Value Reference Range Interpretation Comme [facility] APTT Patient (test code = 3173-2) See_Comment [Automated message] The system which generated this result transmitted reference range: 23 - 38 Seconds. The reference range was not used to interpret this result as normal/abnormal. JUAN ALBERTO (test code = JUAN ALBERTO) The [facility] patient population mean normal value for aPTT is 30 seconds. Lab Interpretation (test code = 60224-4) Normal [facility]woodPROTHROMBIN TIME / [id number] 15:06:28* Test Item Value Reference Range Interpretation Comme [facility] PROTIME PATIENT (test code = 5964-2) See_Comment [Automated wutabouta [employer]] The system which generated this result transmitted reference range: 12.0 - 14.7 Seconds. The reference range was not used to interpret this result as normal/abnormal. INR (test code = 6301-6) Normal INR <1.1; Warfarin Therapeutic range 2.0 to 3.0 or 2.5 to 3.5, depending upon the indications. Lab Interpretation (test code = 08011-1) Normal [facility] METABOLIC PANEL (01905)2022-04-06 15:03:31* Test Item Value Reference Range Interpretation Comme nts NA (test code = 8372532263) 136 mmol/L 135-145 K (test code = 4892636526) 5.0 mmol/L 3.5-5 CL (test code = 6267454573) 104 mmol/L 98-108 CO2 TOTAL (test code = 4613692159) 21 mmol/L 23-31 L AGAP (test code = 3469769483) 2-16 BUN (test code = 8815097769) 11 mg/dL 7-23 GLUCOSE (test code = 2397724991) 162 mg/dL 70-110 H CREATININE (test code = 6428633469) 0.52 mg/dL 0.6-1.25 L TOTAL BILI (test code = 4874347448) 1.0 mg/dL 0.1-1.1 CALCIUM (test code = 5724284815) 9.3 mg/dL 8.6-10.6 T PROTEIN (test code = 3994421539) 7.4 g/dL 6.3-8.2 ALBUMIN (test code = 3494093301) 4.4 g/dL 3.5-5 ALK PHOS (test code = 7276447210) 134 U/L 34-122 H ALTv (test code = 1742-6) 17 U/L 5-50 AST(SGOT) (test code = 1993815922) 38 U/L 13-40 eGFR (test code = 7812355256) mL/min/1.73m2 JUAN ALBERTO (test code = JUAN [...] imaging tests). Lab Interpretation (test code = 83592-5) Abnormal [facility]wood[facility]IP[facility], [id number] 15:03:31* Test Item Value Reference Range Interpretation Comme nts LIPASE (test code = 1657580870) 29 U/L 0-220 Lab Interpretation (test cod e = 50083-5) Normal [facility] WITH [id number] 14:51:49* Test Item Value Reference Range Interpretation Comme nts WBC (test code = 6690-2) See_Comment [[employer]] The system which generated this result transmitted reference range: 4.20 - 10.70 10*3/?L. The reference range was not used to interpret this result as normal/abnormal. RBC (test code = 789-8) See_Comment [[employer]] The system which generated this result transmitted [...] 34.0 g/dL 31.2-35 RDW-SD (test code = 26552-8) 45.9 fL 38.5-51.6 RDW-CV (test code = 788-0) 13.3 % 12.1-15.4 PLT (test code = 777-3) See_Comment [Automated messa ge] The system which generated this result transmitted reference range: 150 - 328 10*3/?L. The reference range was not used to interpret this result as normal/abnormal. MPV (test code = 46698-8) 8.4 fL 9.8-13 L NRBC/100 WBC (test code = 2388255011) See_Comment [Automated [employer] ssage] The system which generated this result transmitted reference range: 0.0 - 10.0 /100 WBCs. The reference range was not used to interpret this result as normal/abnormal. NRBC x10^3 (test code = 7359961709) See_Comment [Automated wutabouta ge] The system which generated this result transmitted reference range: 10*3/?L. The reference range was not used to interpret this result as normal/abnormal. GRAN MAT (NEUT) % (test code = 770-8) 63.0 % IMM GRAN % (test code = 7367078435) 0.50 % LYMPH % (test code = 736-9) 25.2 % MONO % (test code = 5905-5) 9.8 % EOS % (test code = 713-8) 0.3 % BASO % (test code = 706-2) 1.2 % GRAN MAT x10^3(ANC) (test code = 3259638688) 3.73 10*3/uL 1.99-6.95 IMM GRAN x10^3 (test code = 8816745390) 0.03 10*3/uL 0-0.06 LYMPH x10^3 (test code = 731-0) 1.49 10*3/uL 1.09-3.23 MONO x10^3 (test code = 742-7) 0.58 10*3/uL 0.36-1.02 EOS x10^3 (test code = 711-2) 0.06-0.53 L BASO x10^3 (test code = 704-7) 0.07 10*3/uL 0.01-0.09 Lab Interpretation (test code = 17159-9) Abnormal [facility], Urinalysis Rflx Cult/[id number] 13:53:00* Test Item Value Reference Range Interpretation Comme nts Color,Urine (test code = UCOL) Yellow Yellow Clarity,Urine (test code = UCLAR) Cloudy Clear A Ph, Urine (test code = UPH) 7.5 5.0-9.0 N Specific [place],Urine (test code = USG) 1.025 1.005-1.030 N [...] = ULEU) Negative mg/dL Negative UF REFLEXDrug Screen,[id number] 13:53:00* Test Item Value Reference Range Interpretation [...] UPROP) Negative Negative Complete Blood Count Auto [id number] 12:58:00* Test Item Value Reference Range Interpretation [...] = NRBCP) 0 % Coronavirus PCR, COVID19 [id number] 12:58:00* Test Item Value Reference Range Interpretation Comme nts Coronavirus PCR, COVID19 Rapid (test code = SARSCOV2) Coronavirus PCR, COVID19 Rapid (test code = YHACMPU45.1) Reference Range: Negative SARS-CoV-2 PCR Result: (test code = SARS-CoV-2 PCR Result:) Negative by RT-PCR COVID-19 Status: AsymptomaticComprehensive Metabolic Tzcxi3592-37-64 12:58:00* Test Item Value Reference Range Interpretation [...] = ALP) 144 U/L 46-116 H Ethanol Raqxz5991-55-68 12:58:00* Test Item Value Reference Range Interpretation Comme nts Ethanol (test code = ETOH) < 3 mg/dL The pharmacologi yudy response to blood alcohol levels mayvary from individual to individual. The fatal concentrationhas been reported to be >400mg/dL. [id number] 01:47:56* Test Item Value Reference Range Interpretation Comme nts Coronita (test code = 7310998674) 0.7 mmol/L 0.6-1.2 JUAN ALBERTO (test code = JUAN ALBERTO) Toxic Range: ? Greater than 1.2 mmol/L Lab Interpretation (test code = 70991-5) Normal [facility] [id number] 00:26:53* Test Item Value Reference Range Interpretation Comments TROPONIN I (test code = 0616952003) 0.002 ng/mL See_Comment [Automated message] The system [...] of biotin. Lab Interpretation (test code = 10404-8) Normal [facility]22[facility]01 00:18:52 ALCOHOL<10mg/dL01/19/2022 7:18 PM [facility]<10 Ugzadswx42-366 Toxic>100 Depression of NETWORK SUPPORT SPECIALIST>400 [facility]. METABOLIC PANEL (78974)2022-01-20 00:16:16* Test Item Value Reference Range Interpretation Comme nts NA (test code = 7574764056) 137 mmol/L 135-145 K (test code = 3261963102) 4.5 mmol/L 3.5-5 CL (test code = 5497611301) 103 mmol/L 98-108 CO2 TOTAL (test code = 6973138684) 26 mmol/L 23-31 AGAP (test code = 4215580725) 2-16 BUN (test code = 3095782860) 10 mg/dL 7-23 GLUCOSE (test code = 8038153037) 121 mg/dL 70-110 H CREATININE (test code = 7963079964) 0.65 mg/dL 0.6-1.25 TOTAL BILI (test code = 8519794398) 0.8 mg/dL 0.1-1.1 CALCIUM (test code = 2761019111) 11.4 mg/dL 8.6-10.6 H T PROTEIN (test code = 2867540712) 7.2 g/dL 6.3-8.2 ALBUMIN (test code = 8368606700) 4.6 g/dL 3.5-5 ALK PHOS (test code = 1364353768) 112 U/L 34-122 ALTv (test code = 1742-6) 19 U/L 5-50 AST(SGOT) (test code = 4770349065) 26 U/L 13-40 eGFR (test code = 7583924468) mL/min/1.73m2 JUAN ALBERTO (test code = JUAN [...] imaging tests). Lab Interpretation (test code = 33921-1) Abnormal [facility] WITH [id number] 23:43:54* Test Item Value Reference Range Interpretation Comme nts WBC (test code = 6690-2) See_Comment [[employer]] The system which generated this result transmitted reference range: 4.20 - 10.70 10*3/?L. The reference range was not used to interpret this result as normal/abnormal. RBC (test code = 789-8) See_Comment [[employer]] The system which generated this result transmitted [...] 34.4 g/dL 31.2-35 RDW-SD (test code = 67018-1) 44.0 fL 38.5-51.6 RDW-CV (test code = 788-0) 12.6 % 12.1-15.4 PLT (test code = 777-3) See_Comment [Automated messa ge] The system which generated this result transmitted reference range: 150 - 328 10*3/?L. The reference range was not used to interpret this result as normal/abnormal. MPV (test code = 44244-5) 9.1 fL 9.8-13 L NRBC/100 WBC (test code = 6433424983) See_Comment [Automated me ssage] The system which generated this result transmitted reference range: 0.0 - 10.0 /100 WBCs. The reference range was not used to interpret this result as normal/abnormal. NRBC x10^3 (test code = 4683883132) See_Comment [Automated messa ge] The system which generated this result transmitted reference range: 10*3/?L. The reference range was not used to interpret this result as normal/abnormal. GRAN MAT (NEUT) % (test code = 770-8) 69.8 % IMM GRAN % (test code = 1331902549) 0.40 % LYMPH % (test code = 736-9) 18.0 % MONO % (test code = 5905-5) 10.9 % EOS % (test code = 713-8) 0.1 % BASO % (test code = 706-2) 0.8 % GRAN MAT x10^3(ANC) (test code = 1632281923) 5.58 10*3/uL 1.99-6.95 IMM GRAN x10^3 (test code = 1522690376) 0.03 10*3/uL 0-0.06 LYMPH x10^3 (test code = 731-0) 1.44 10*3/uL 1.09-3.23 MONO x10^3 (test code = 742-7) 0.87 10*3/uL 0.36-1.02 EOS x10^3 (test code = 711-2) 0.06-0.53 L BASO x10^3 (test code = 704-7) 0.06 10*3/uL 0.01-0.09 Lab Interpretation (test code = 46943-5) Abnormal [facility] GLUCOSE (AUTOMATED)2022-01-19 22:27:41* Test Item Value Reference Range Interpretation Comme nts POCT GLU (test code = 9256333978) 123 mg/dL 70-110 H Lab Interpretation (test cod e = 49612-7) Abnormal [facility] GLUCOSE (AUTOMATED)2021-12-30 22:08:16* Test Item Value Reference Range Interpretation Comme nts POCT GLU (test code = 0888863243) 167 mg/dL 70-110 H Lab Interpretation (test cod e = 13051-2) Abnormal [facility] GLUCOSE (AUTOMATED)2021-12-30 16:50:40* Test Item Value Reference Range Interpretation Comme nts POCT GLU (test code = 7366282327) 154 mg/dL 70-110 H Lab Interpretation (test cod e = 94131-2) Abnormal [facility] GLUCOSE (AUTOMATED)2021-12-30 12:38:43* Test Item Value Reference Range Interpretation Comme nts POCT GLU (test code = 4623674842) 164 mg/dL 70-110 H Lab Interpretation (test cod e = 17242-6) Abnormal [facility] GLUCOSE (AUTOMATED)2021-12-30 02:14:58* Test Item Value Reference Range Interpretation Comme nts POCT GLU (test code = 3475666930) 220 mg/dL 70-110 H Lab Interpretation (test cod e = 66579-6) Abnormal [facility] GLUCOSE (AUTOMATED)2021-12-29 21:50:02* Test Item Value Reference Range Interpretation Comme nts POCT GLU (test code = 4512754059) 191 mg/dL 70-110 H Lab Interpretation (test cod e = 48144-2) Abnormal [facility] GLUCOSE (AUTOMATED)2021-12-29 20:15:01* Test Item Value Reference Range Interpretation Comme nts POCT GLU (test code = 0953570355) 163 mg/dL 70-110 H Lab Interpretation (test cod e = 98794-1) [facility]21[facility]29 19:12:22* Test Item Value Reference Range Interpretation Comme nts Height (test code = 4148934737) in Weight (test code = 5389697141) lbs Systolic BP (test code = 1831899857) mmHg Diastolic BP (test code = 4341945750) mmHg Heart Rate (test code = 0558270417) bpm BSA (test code = 9618976201) 1.62 m2 Ao root annulus (test code = 8541337856) 2.45 cm Ao root diam (test code = 6002657389) 2.45 cm Aortic root (test code = 1257265388) 2.45 cm ACS (test code = 3859139915) 1.66 cm LA size (test code = 4729830707) 3.2 cm LVOT diameter (test code = 7985564508) 1.95 cm LVIDD (test code = 4003803947) 3.60 cm IVS (test code = 5491469141) 0.94 cm Interventricular Septum Diastolic Thickness by 2D (test code = 0108785) 0.94 cm LVPWD (test code = 5762851768) 0.80 cm PW (test code = 8764885356) 0.80 cm 0.6-1.1 EF(Teich) (test code = 0296126940) 52.80 % LVIDS (test code = 6073718644) 2.60 cm FS (test code = 5767459887) 27 % EF - 2D (test code = 46409754) 52.80 % LAV(MOD-sp4) (test code = 7992500310) 16.80 mL MV Peak E Jovany (test code = 3780057791) 46.1 cm/s E wave decelartion time (test code = 8066026722) 0.31 s MV Peak A Jovany (test code = 1491892562) 58.1 cm/s E/A ratio (test code = 0232091402) ratio MV E/e' septal (test code = 1097022506) 5.7 cm/s Tapse (test code = 4552384700) 1.60 cm LVOT stroke volume (test code = 0204636288) 52.10 cm3 LVOT peak jovany (test code = 8905857839) 110.6 cm/s LVOT mn grad (test code = 8679052578) mmHg AV LVOT peak gradient (test code = 6696739128) mmHg LVOT peak VTI (test code = 4304076251) 17.4 cm LV V1 mean (test code = 0811160872) 66.10 cm/s Aortic valve mean velocity (test code = 3476105862) 73.0 cm/s Ao peak jovany (test code = 0168954248) 124.6 cm/s Ao VTI (test code = 1628472807) 18.6 cm AV area by cont VTI (test code = 2250182654) 2.8 cm2 AV area peak jovany (test code = 5022790280) 2.7 cm2 Ao max PG (test code = 4551704515) 6.20 mm[Hg] AV peak gradient (test code = 2775030409) mmHg AV valve area (test code = 3642072880) 2.80 cm2 AV mean gradient (test code = 0557392875) mmHg Radiology Study observation (narrative) (test code = 75899-8) JUAN ALBERTO (test code = JUAN ALBERTO) [...] mL [facility] Lumason [facility] 12:50:31* Test Item Value Reference Range Interpretation Comme nts POCT GLU (test code = 5743189017) 141 mg/dL 70-110 H Lab Interpretation (test cod e = 97922-6) Abnormal [facility] [id number] 10:38:31* Test Item Value Reference Range Interpretation Comments TROPONIN I (test code = 2097476089) 0.003 ng/mL See_Comment [Automated message] The system [...] of biotin. Lab Interpretation (test code = 39209-8) Normal [facility]woodLIP[facility] (49670)(TOTAL CHOLESTEROL, TRIGLYCERIDES, HDL)2021-12-29 05:56:47* Test Item Value Reference Range Interpretation Comme nts CHOL (test code = 5180867714) 168 mg/dL 120-200 HDL (test code = 7399869497) 102 mg/dL See_Comment [Automated [employer]] The system which generated this result transmitted reference range: >=40. The reference range was not used to interpret this result as normal/abnormal. HDLC RATIO (test code = 7084752769) See_Comment [Automated [employer]] The system which generated this result transmitted reference range: <=5.0. The reference range was not used to interpret this result as normal/abnormal. TRIG (test code = 5375371258) 55 mg/dL 30-170 LDL CHOL (test code = 08622-8) 55 mg/dL See_Comment [Automated [employer]] The system which generated this result transmitted reference range: <=160. The reference range was not used to interpret this result as normal/abnormal. VLDL (test code = 7159006511) 11 mg/dL 5-60 Lab Interpretation (test code = 79027-1) Normal [facility]wood[facility] Hormone (TSH)2021-12-29 05:40:29* Test Item Value Reference Range Interpretation Comme nts TSH (test code = 7707476299) See_Comment Biotin has been reported to cause a negative bias, interpret results relative to patient's use of biotin. [Automated message] The system which generated this result transmitted reference range: 0.45 - 4.70 mIU/L. The reference range was not used to interpret this result as normal/abnormal. Lab Interpretation (test code = 34792-9) Normal [facility]woodTroponin [id number] 05:34:29* Test Item Value Reference Range Interpretation Comments TROPONIN I (test code = 3239999550) 0.006 ng/mL See_Comment [Automated message] The system [...] of biotin. Lab Interpretation (test code = 93189-0) Normal [facility]woodETHANOL2022-07-10 04:43:01 ALCOHOL<10mg/dL12/28/2021 11:43 PM [facility] LABORATORYToxic Greater than or equal to 80 mg/dL. NOTE: Whole blood values are approximately 10% to 15% lower than serum and plasma.[facility] Glycosylated Hemoglobin (A1C)2021-12-29 01:51:44* Test Item Value Reference Range Interpretation Comme nts HGB A1C (test code = 4548-4) 6.5 % 4-5.7 H JUA NALBERTO (test code = JUAN ALBERTO) Reference RangesNormal: <5.7%Prediabetes: 5.7 - 6.4%Diabetes: > 6.5% Lab Interpretation (test code = 95232-5) Abnormal [facility]woodTROPONIN [id number] 21:26:50* Test Item Value Reference Range Interpretation Comments TROPONIN I (test code = 0988687012) 0.002 ng/mL See_Comment [Automated message] The system [...] of biotin. Lab Interpretation (test code = 80417-6) Normal [facility] KingwoodN-TERMINAL [id number] 21:23:29* Test Item Value Reference Range Interpretation Comme nts NT-proBNP (test code = 0498384170) 41 pg/mL See_Comment [Automated message] The system which generated this result transmitted reference range: <=125. The reference range was not used to interpret this result as normal/abnormal. JUAN ALBERTO (test code = JUAN ALBERTO) Biotin has been reported to cause a negative bias, interpret results relative to patient's use of biotin. Lab Interpretation (test code = 13922-3) Normal [facility] KingwoodAMMONIA, [id number] 21:20:38* Test Item Value Reference Range Interpretation Comme nts AMMONIA (test code = 5731965353) 9-33 L Slight hemolysis Lab Interpretation (test code = 77664-2) Abnormal [facility]woodCOMP. METABOLIC PANEL (68043)2021-12-28 21:08:48* Test Item Value Reference Range Interpretation Comme nts NA (test code = 7574699945) 137 mmol/L 135-145 K (test code = 0044179127) 4.5 mmol/L 3.5-5 CL (test code = 1809858631) 97 mmol/L 98-108 L CO2 TOTAL (test code = 4704273871) 29 mmol/L 23-31 AGAP (test code = 2504546602) 2-16 BUN (test code = 9188784532) 10 mg/dL 7-23 GLUCOSE (test code = 1469617311) 188 mg/dL 70-110 H CREATININE (test code = 2118371579) 0.58 mg/dL 0.6-1.25 L TOTAL BILI (test code = 0325989621) 0.8 mg/dL 0.1-1.1 CALCIUM (test code = 8216844080) 10.5 mg/dL 8.6-10.6 T PROTEIN (test code = 9297868894) 7.6 g/dL 6.3-8.2 ALBUMIN (test code = 9968501283) 4.5 g/dL 3.5-5 ALK PHOS (test code = 7430899373) 107 U/L 34-122 ALTv (test code = 1742-6) 66 U/L 5-50 H AST(SGOT) (test code = 9308586673) 96 U/L 13-40 H eGFR (test code = 4570305127) mL/min/1.73m2 JUAN ALBERTO (test code = JUAN [...] imaging tests). Lab Interpretation (test code = 53632-1) Abnormal [facility] KingwoodPROTHROMBIN TIME / [id number] 21:01:25* Test Item Value Reference Range Interpretation Comme [facility] PROTIME PATIENT (test code = 5964-2) See_Comment [Automated [employer]] The system which generated this result transmitted reference range: 12.0 - 14.7 Seconds. The reference range was not used to interpret this result as normal/abnormal. INR (test code = 6301-6) Normal INR <1.1; Warfarin Therapeutic range 2.0 to 3.0 or 2.5 to 3.5, depending upon the indications. Lab Interpretation (test code = 27354-5) Normal [facility]woodCBC WITH [id number] 20:54:03* Test Item Value Reference Range Interpretation Comme [facility] WBC (test code = 6690-2) See_Comment [Automated [employer]] The system which generated this result transmitted reference range: 4.20 - 10.70 10*3/?L. The reference range was not used to interpret this result as normal/abnormal. RBC (test code = 789-8) See_Comment [Automated [employer]] The system which generated this result transmitted [...] 34.2 g/dL 31.2-35 RDW-SD (test code = 13645-6) 47.8 fL 38.5-51.6 RDW-CV (test code = 788-0) 13.3 % 12.1-15.4 PLT (test code = 777-3) See_Comment [Automated [employer]utabouta ge] The system which generated this result transmitted reference range: 150 - 328 10*3/?L. The reference range was not used to interpret this result as normal/abnormal. MPV (test code = 42175-6) 8.6 fL 9.8-13 L NRBC/100 WBC (test code = 1310134175) See_Comment [Automated [employer] ssage] The system which generated this result transmitted reference range: 0.0 - 10.0 /100 WBCs. The reference range was not used to interpret this result as normal/abnormal. NRBC x10^3 (test code = 0933114095) See_Comment [Automated wutabouta ge] The system which generated this result transmitted reference range: 10*3/?L. The reference range was not used to interpret this result as normal/abnormal. GRAN MAT (NEUT) % (test code = 770-8) 64.1 % IMM GRAN % (test code = 1977641612) 0.40 % LYMPH % (test code = 736-9) 16.6 % MONO % (test code = 5905-5) 17.2 % EOS % (test code = 713-8) 0.2 % BASO % (test code = 706-2) 1.5 % GRAN MAT x10^3(ANC) (test code = 4927422689) 3.47 10*3/uL 1.99-6.95 IMM GRAN x10^3 (test code = 9151217507) 0-0.06 LYMPH x10^3 (test code = 731-0) 0.90 10*3/uL 1.09-3.23 L MONO x10^3 (test code = 742-7) 0.93 10*3/uL 0.36-1.02 EOS x10^3 (test code = 711-2) 0.06-0.53 L BASO x10^3 (test code = 704-7) 0.08 10*3/uL 0.01-0.09 Lab Interpretation (test code = 84899-7) Abnormal [facility] KingwoodEthanol [id number] 21:08:00* Test Item Value Reference Range Interpretation Comme nts Ethanol (test code = ETOH) < 3 mg/dL The pharmacologi yudy response to blood alcohol levels mayvary from individual to individual. The fatal concentrationhas been reported to be >400mg/dL. Complete Blood Count Auto [id number] 17:33:00* Test Item Value Reference Range Interpretation [...] = NRBCP) 0 % UA, Urinalysis Rflx Cult/Ipkou4479-82-55 17:33:00* Test Item Value Reference Range Interpretation Comme nts Color,Urine (test code = UCOL) Dark Yellow Yellow A Clarity,Urine (test code = UCLAR) Clear Clear Ph, Urine (test code = UPH) 6.5 5.0-9.0 N Specific [place],Urine (test code = USG) 1.015 1.005-1.030 N [...] = ULEU) Trace mg/dL Negative A Urine Qlppkwrfjbc8007-70-33 17:33:00* Test Item Value Reference Range Interpretation Comme nts RBC,Urine (test code = URBCUF) None Seen /HPF 0-2 WBC,Urine (test code = UWBCUF) 0-5 /HPF 0-5 Epithelial Cell,Urine (test code = UECUF) 0-5 /HPF 0-5 Casts,Urine (test code = UCASTUF) None Seen /LPF None Seen Bacteria,Urine (test code = UBACTUF) None Seen /hpf None Seen Drug Screen,Ymdfq8574-51-79 17:33:00* Test Item Value Reference Range Interpretation [...] code = UPROP) Negative Negative Comprehensive Metabolic [id number] 17:33:00* Test Item Value Reference Range Interpretation [...] 101 U/L 46-116 N Sars-CoV-2/FLU A/B RSV [id number] 17:31:00* Test Item Value Reference Range Interpretation [...] SARS-CoV-2 PCR Result:) Negative by RT-PCR Drug Screen,[id number] 17:20:00* Test Item Value Reference Range Interpretation [...] UPROP) Negative Negative Complete Blood Count Auto [id number] 17:14:00* Test Item Value Reference Range Interpretation [...] code = NRBCP) 0 % Comprehensive Metabolic Ahesp5923-35-83 17:14:00* Test Item Value Reference Range Interpretation [...] = ALP) 207 U/L 46-116 H Ethanol Qpobd0377-82-02 17:14:00* Test Item Value Reference Range Interpretation Comme nts Ethanol (test code = ETOH) 192 mg/dL Complete Blood Count Auto [id number] 20:20:00* Test Item Value Reference Range Interpretation [...] code = NRBCP) 0 % Comprehensive Metabolic Ulptw3836-48-80 20:20:00* Test Item Value Reference Range Interpretation [...] = ALP) 189 U/L 46-116 H Ethanol Cvvwt7684-31-12 20:20:00* Test Item Value Reference Range Interpretation Comme nts Ethanol (test code = ETOH) 10 mg/dL Sars-CoV-2/FLU A/B RSV [id number] 20:20:00* Test Item Value Reference Range Interpretation [...] Negative by Nucleic Acid Amplification UA, Urinalysis Hwxcqzobwaf1068-08-34 20:20:00* Test Item Value Reference Range Interpretation Comme nts Color,Urine (test code = UCOL) Yellow Y Clarity,Urine (test code = UCLAR) Clear Clear PH,Urine (test code = UPH.XX) 7.0 5.5-8.5 Specific [place],Urine (test code = USG) 1.020 1.005-1.030 N [...] code = ULEU) Negative cells/uL Negative Drug Screen,Btoli6970-02-57 20:20:00* Test Item Value Reference Range Interpretation [...] (test code = UTHCS) Negative RESULT TO FO [facility] CT head/brain wo [address] [address] Patient Name: Walt Velazquez Medical Record#: [id number] Address: Homeless City/State/Zip: [place] [address]: Vinnie Navarro MD Phone: Insurance: Self Pay /Age/Sex: 1970/50/M Admit/Reg Date: 09/17/[address]: Vinnie Navarro MD Location: [facility]/ PCP: PcpMd KERWIN Jimenez Date of Service: 09/17/21 Order (s): CT head/brain wo con CPT Code: 74489 Report Number: [id number] Reason for Exam: Altered mental status Location H 31 CT SCAN OF THE HEAD WITHOUT CONTRAST CLINICAL HISTORY: Altered mental status TECHNIQUE: Helical CT was performed from the skull base to the vertex without IV contrast and provided at 5 mm slice thickness. Coronal and sagittal reconstruction provided. Axial images provided in bone windows as well. One or morethe following dose reduction techniques is utilized: Use [...]
[2023-07-17 11:59] LABS: Absolute Lymphocytes (CBC) 1.2 K/uL (0.7-4.9); Hematocrit 39.1 % (39.6-49.0); Lymphocytes % 22.9 % (15.3-44.8); MCV 92.5 fL (80-100); MPV 6.2 fL (7.6-11.3); Platelets 292 thou/uL (152-406); RBC Red Blood Cell Count 4.23 M/uL (4.33-5.43)
[2023-07-17 12:18] LABS: ALT/SGPT 20 U/L (16-61); AST/SGOT 16 U/L (15-37); Albumin 3.4 g/dL (3.4-5.0); Alkaline Phosphatase 118 U/L (45-117); BUN Blood Urea Nitrogen 13 mg/dL (7-18); Bicarbonate 26 mEq/L (21-32); Bilirubin Total 0.3 mg/dL (0.2-1.0); Glomerular Filtration Rate 115 ml/min (=/>90); Glucose Level 193 mg/dL (74-106); Magnesium 1.7 mg/dL (1.6-2.4); Potassium 3.5 mEq/L (3.5-5.1); Protein, Total 7.2 g/dL (6.4-8.2); Sodium Level 135 mEq/L (136-145)
[2023-07-17 12:21] LABS: Bilirubin Direct < 0.1 mg/dL (0-0.2); Bilirubin Indirect, Calculated ND mg/dL (0.2-0.8)
--- NOTE | 2023-07-17 13:36 | EDPHYS ---
Physician Documentation [facility] Name: Walt Velazquez Age: 52 yrs Sex: Male : 1970 Arrival Date: 07/17/2023 Time: 11:24 Bed 5 Private MD: ED Physician Jules Lucero HPI: 07/17 11:29 This 52 yrs old Male presents to ER via Unassigned with complaints of alcohol sp4 withdrawals. Historical: - Allergies: 11:30 Trazodone; rs5 - PMHx: 11:30 Alcoholism; Bipolar II; Hypertensive disorder; Parkinsons; Seizure; rs5 - PSHx: 11:30 None; rs5 - Immunization history:: Adult Immunizations up to date. - Social history:: Smoking status: Patient reports the use of cigarette tobacco products, smokes one-half pack cigarettes per day. ROS: 13:33 Constitutional: Positive for chest pain and tremors sp4 13:33 All other systems are negative, Exam: 11:47 Constitutional: This is a well developed, well nourished patient who is awake, alert, sp4 and in no acute distress. Patient appears shaky, jittery but no active psychosis Head/Face: Normocephalic, atraumatic. Eyes: Pupils equal round and reactive to light, extra-ocular motions intact. Lids and lashes normal. Conjunctiva and sclera are not injected. Cornea within normal limits. Periorbital areas with no swelling, redness, or edema. ENT: Nares patent. No nasal discharge, no septal abnormalities noted. Tympanic membranes are normal and external auditory canals are clear. Oropharynx with no redness, swelling, or masses, exudates, or evidence of obstruction, uvula midline. Mucous membranes moist. Neck: Trachea midline, no thyromegaly or masses palpated, and no cervical lymphadenopathy. Supple, full range of motion without nuchal rigidity, or vertebral point tenderness. Chest/axilla: Normal chest wall appearance and motion. Nontender with no deformity. No lesions are appreciated. Cardiovascular: Regular rate and rhythm with a normal S1 and S2. No gallops, murmurs, or rubs. Normal PMI, no JVD. No pulse deficits. Respiratory: Lungs have equal breath sounds bilaterally, clear to auscultation and percussion. No rales, rhonchi or wheezes noted. No increased work of breathing, no retractions or nasal flaring. Abdomen/GI: Soft, non-tender, with normal bowel sounds. No distension or tympany. No guarding or rebound. No evidence of tenderness throughout. Back: No spinal tenderness. No costovertebral tenderness. Male : Normal genitalia with no discharge or lesions. Skin: Warm, dry with normal turgor. Normal color with no rashes, no lesions, and no evidence of cellulitis. MS/ Extremity: Pulses equal, no cyanosis. Neurovascular intact. Full, normal range of motion. Neuro: Awake and alert, GCS 15, oriented to person, place, time, and situation. Cranial nerves II-XII grossly intact. Motor strength 5/5 in all extremities. Sensory grossly intact. Psych: Awake, alert, with orientation to person, place and time. Behavior, mood, and affect are within normal limits 11:49 ECG was reviewed by the Attending Physician. EKG time 1131, sinus tachycardia at a sp4 rate of 104. Vital Signs: 11:30 BP 122 / 75; Pulse 90; Resp 18; Temp 98.4(O); Pulse Ox 99% ; rs5 12:13 BP 125 / 79; Pulse 94; Resp 18; Pulse Ox 100% on R/A; ld1 13:24 BP 118 / 71; Pulse 85; Resp 18; Pulse Ox 100% on R/A; ld1 13:43 BP 124 / 75; Pulse 79; Resp 18; Pulse Ox 99% on R/A; ld1 NIH Stroke Scale Scores: 11:47 NIHSS Score: 0 sp4 Mariia Coma Score: 11:47 Eye Response: spontaneous(4). Motor Response: obeys commands(6). Verbal Response: sp4 oriented(5). Total: 15. MDM: 12:36 Patient medically screened. sp4 13:33 Differential Diagnosis altered mental status, sepsis, flu. Data reviewed: vital signs, sp4 nurses notes, EMS record, old medical records, lab test result(s), EKG. ED course: Patient feels much better after Ativan and he is stable for discharge. Patient advised to discontinue alcohol abuse. He will be prescribed Librium as needed for withdrawals. . 07/17 11:29 Order name: Basic Metabolic Panel; Complete Time: 13:31 sp4 01/26 11:29 Order name: CBC with Diff; Complete Time: 4 07/17 11:29 Order name: LFT's; Complete Time: 07/17 11:29 Order name: Magnesium; Complete Time: 4 07/17 11:29 Order name: Troponin HS; Complete Time: 4 07/17 11:29 Order name: EKG; Complete Time: 1107/17 11:29 Order name: Cardiac monitoring; Complete Time: 12:07/17 11:29 Order name: EKG - Nurse/Tech; Complete Time: 12:07/17 11:29 Order name: IV Saline Lock; Complete Time: :07/17 11:29 Order name: Labs collected and sent; Complete Time: 12:07/17 11:29 Order name: O2 Per Protocol; Complete Time: 12: [facility] 07/17 11:29 Order name: O2 Sat Monitoring; Complete Time: 12: EC:49 Rate is 104 beats/min. Rhythm is regular, Sinus tachycardia. QRS [place] is Normal. [place] sp4 interval is normal. QRS interval is normal. QT interval is normal. No Q waves. T waves are Normal. No ST changes noted. Clinical impression: No evidence of ischemia. Interpreted by me. Reviewed by me. Administered Medications: 11:45 Drug: Ativan IVP 2 mg IVP once Route: IVP; Site: left antecubital; rs5 11:45 Drug: Aspirin PO Chewable Tablet 324 mg PO once; 81 mg tablets x 4 Route: PO; rs5 Disposition Summary: 07/17/23 13:35 Discharge Ordered Notes: Discontinue alcohol abuse., Establish yourself with AA Location: Home sp4 Problem: new sp4 Symptoms: have improved sp4 Condition: Stable sp4 Diagnosis - Alcohol dependence sp4 - Alcohol dependence with withdrawal, uncomplicated sp4 - Chest pain, unspecified sp4 Followup: sp4 - With: Private Physician - When: 7 - 10 days - Reason: Recheck today's complaints Discharge Instructions: - Discharge Summary Sheet sp4 - Alcohol Use Disorder sp4 Forms: - Patient Portal Instructions sp4 Prescriptions: - chlordiazepoxide HCl 25 mg Oral capsule - take 1 capsule ORAL route every 12 hours Take 1 tab every 12 hours for 5 days sp4 then 1 tab daily for 5 days; 15 capsule; Refills: 0, Product Selection Permitted NIH Stroke Scale - NIH Stroke Score Date: 07/17/2023 Time: 11:47 Total Score = 0 10. Dysarthria (speech clarity - read or repeat words) - 0(Normal) 11. Extinction and Inattention (visual/tactile/auditory/spatial/personal) - 0(No abnormality) 1a. Level of Consciousness (LOC) - 0(Alert) 1b. Level of Consciousness (LOC) (Month \T\ Age) - 0(Both) 1c. LOC Commands (Open \T\ Closes Eyes/[employer] Package Symbol Stamper) - 0(Both) 2. Best Gaze (Lateral Gaze Paresis) - 0(Normal) 3. Visual Field Loss - 0(No visual loss) 4. Facial Palsy - 0(Normal) 5a. Left Arm: Motor (10-second hold) - 0(No drift) 5b. Right Arm: Motor (10-second hold) - 0(No drift) 6a. Left Leg: Motor (5-second hold - always test supine) - 0(No drift) 6b. Right Leg: Motor (5-second hold - always test supine) - 0(No drift) 7. Limb Ataxia (finger/nose \T\ heel/amos - test with eyes open) - 0(Absent) 8. Sensory Loss (pinprick arms/legs/face) - 0(Normal) 9. Best Language: Aphasia (description/naming/reading) - 0(No aphasia) Initials: sp4 Signatures: Dispatcher [employer] Vipin Kuo RN RN rs5 Jules Lucero MD MD sp4
--- NOTE | 2023-07-17 13:36 | ER ---
Nurse's Notes [facility] Name: Walt Velazquez Age: 52 yrs Sex: Male : 1970 Arrival Date: 07/17/2023 Time: 11:24 Bed 5 Private MD: Diagnosis: Alcohol dependence;Alcohol dependence with withdrawal, uncomplicated;Chest pain, unspecified Presentation: 07/17 11:30 Chief complaint: EMS states: Pt started having chest pain yesterday afternoon, pt has a rs5 history of alcohol abuse. 11:30 Coronavirus screen: At this time, the client does not indicate any symptoms associated rs5 with coronavirus-19. Ebola Screen: No symptoms or risks identified at this time. Initial Sepsis Screen: Does the patient meet any 2 criteria? No. Patient's initial sepsis screen is negative. Does the patient have a suspected source of infection? No. Patient's initial sepsis screen is negative. Risk Assessment: Do you want to hurt yourself or someone else? Patient reports no desire to harm self or others. Onset of symptoms was July 17, 2022. 11:30 Method Of Arrival: EMS: [facility]5 11:30 Acuity: LATASHA 3 rs5 Triage Assessment: 13:42 General: Appears in no apparent distress. comfortable, Behavior is calm, cooperative, ld1 appropriate for age. Pain: Denies pain. EENT: No signs and/or symptoms were reported regarding the EENT system. Neuro: Level of Consciousness is awake, alert, obeys commands, Oriented to person, place, time, situation. Cardiovascular: Capillary refill < 3 seconds Patient's skin is warm and dry. Respiratory: Airway is patent Respiratory effort is even, unlabored. GI: Abdomen is flat, non-distended. : No signs and/or symptoms were reported regarding the genitourinary system. Derm: No signs and/or symptoms reported regarding the dermatologic system. Musculoskeletal: No signs and/or symptoms reported regarding the musculoskeletal system. Historical: - Allergies: 11:30 Trazodone; rs5 - PMHx: 11:30 Alcoholism; Bipolar II; Hypertensive disorder; Parkinsons; Seizure; rs5 - PSHx: 11:30 None; rs5 - Immunization history:: Adult Immunizations up to date. - Social history:: Smoking status: Patient reports the use of cigarette tobacco products, smokes one-half pack cigarettes per day. Screenin:42 [facility] ED Fall Risk Assessment (Adult) History of falling in the last 3 months, ld1 including since admission No falls in past 3 months (0 pts). Abuse screen: Denies threats or abuse. Denies injuries from another. Nutritional screening: No deficits noted. Tuberculosis screening: No symptoms or risk factors identified. Assessment: 13:43 Reassessment: See triage assessment. ld1 Vital Signs: 11:30 BP 122 / 75; Pulse 90; Resp 18; Temp 98.4(O); Pulse Ox 99% ; rs5 12:13 BP 125 / 79; Pulse 94; Resp 18; Pulse Ox 100% on R/A; ld1 13:24 BP 118 / 71; Pulse 85; Resp 18; Pulse Ox 100% on R/A; ld1 13:43 BP 124 / 75; Pulse 79; Resp 18; Pulse Ox 99% on R/A; ld1 Mariia Coma Score: 11:47 Eye Response: spontaneous(4). Motor Response: obeys commands(6). Verbal Response: sp4 oriented(5). Total: 15. NIH Stroke Scale Scores: 11:47 NIHSS Score: 0 sp4 ED Course: 11:26 Patient arrived in ED. ld1 11:28 Jules Lucero MD is Attending Physician. sp4 11:33 Vipin Owens, RN is Primary Nurse. rs5 11:40 Inserted saline lock: 20 gauge in left antecubital area, using aseptic technique. Blood rs5 collected. 11:54 Troponin HS Sent. rc3 11:54 LFT's Sent. rc3 11:55 CBC with Diff Sent. rc3 11:55 Basic Metabolic Panel Sent. rc3 11:55 Magnesium Sent. rc3 12:15 Triage completed. rs5 13:42 Arm band placed on right wrist. ld1 13:43 No provider procedures requiring assistance completed. IV discontinued, intact, ld1 bleeding controlled, No redness/swelling at site. 13:43 Patient has correct armband on for positive identification. Placed in gown. Bed in low ld1 position. Call light in reach. Side rails up X2. monitor technician on. Pulse ox on. NIBP on. Door closed. Noise minimized. Warm blanket given. Administered Medications: 11:45 Drug: Ativan IVP 2 mg IVP once Route: IVP; Site: left antecubital; rs5 11:45 Drug: Aspirin PO Chewable Tablet 324 mg PO once; 81 mg tablets x 4 Route: PO; rs5 Medication: 13:44 VIS not applicable for this client. ld1 Outcome: 13:35 Discharge ordered by . sp4 13:43 Discharged to home ambulatory, ld1 13:43 Condition: stable 13:43 Discharge instructions given to patient, Instructed on discharge instructions, follow up and referral plans. Demonstrated understanding of instructions, follow-up care, 13:44 Patient left the ED. ld1 NIH Stroke Scale - NIH Stroke Score Date: 07/17/2023 Time: 11:47 Total Score = 0 10. Dysarthria (speech clarity - read or repeat words) - 0(Normal) 11. Extinction and Inattention (visual/tactile/auditory/spatial/personal) - 0(No abnormality) 1a. Level of Consciousness (LOC) - 0(Alert) 1b. Level of Consciousness (LOC) (Month \T\ Age) - 0(Both) 1c. LOC Commands (Open \T\ Closes Eyes/Casting And Curing Operator) - 0(Both) 2. Best Gaze (Lateral Gaze Paresis) - 0(Normal) 3. Visual Field Loss - 0(No visual loss) 4. Facial Palsy - 0(Normal) 5a. Left Arm: Motor (10-second hold) - 0(No drift) 5b. Right Arm: Motor (10-second hold) - 0(No drift) 6a. Left Leg: Motor (5-second hold - always test supine) - 0(No drift) 6b. Right Leg: Motor (5-second hold - always test supine) - 0(No drift) 7. Limb Ataxia (finger/nose \T\ heel/amos - test with eyes open) - 0(Absent) 8. Sensory Loss (pinprick arms/legs/face) - 0(Normal) 9. Best Language: Aphasia (description/naming/reading) - 0(No aphasia) Initials: sp4 Signatures: Basilia Wen RN RN ld1 Vipin Owens RN RN rs5 Jules Lucero MD MD sp4 Sofia [email or web address]
[2023-07-17 15:22] VITALS: BP 124/75; TEMP 98.4; O2SAT 99
== END ==
LOC: ER 11:24
DX: F10.239 Alcohol dependence with withdrawal, unspecified (principal)
CPT/HCPCS: 36415; 80048; 80076; 83735; 84484; 85025; 93005

== ENCOUNTER 2023-07-19 05:33 | Observation (INO) | payer SELFPAY ==
--- OUTSIDE RECORDS SUMMARY | 2023-07-19 05:38 | XMS REPORT | Continuity of Care Document ---
Author Name Unknown Address [address] [place] [address] [facility] Address [address] [place] [address] Care Team Providers Care Assistant [employer] Name Role Phone Pcp-None Primary Care Physician Unavailab HEMANT Adame Attending Clinician Unavailable Hemant Klein MD Attending Clinician [phone] Pan Pinto Attending Clinician Unavailab JESSICA Gallardo Attending Clinician Unavailable Rayray Driscoll MD Attending Clinician [phone] Jessica Prado MD Attending Clinician [phone] Oswald Murphy MD Attending Clinician [phone] DIYA CHOWDHURY Attending Clinician Unavailab Diya Mackey DO Attending Clinician [phone] Fidel Cuellar Attending Clinician Unavailable DIRK YARBROUGH Attending Clinician Unavailable Leticia Rowland Attending Clinician [phone] Dirk Yarbrough MD Attending Clinician [phone] Faye Portillo LVN Attending Clinician [phone] Pia Reddy Attending Clinician [phone] Vinnie Navarro Attending Clinician Unavailable OSWALD MURPHY Admitting Clinician Unavailable Oswald Murphy MD Admitting Clinician [phone] DIYA CHOWDHURY Admitting Clinician UnavailLeticia Gaytan Admitting Clinician Unavailable JESSICA PRADO Admitting Clinician Unavailable Jessica Prado MD Admitting Clinician [phone] Payers Payer Name Policy Type Policy Number Effective Date Expirati on Date Source [facility] [id number] 2022 00:00:00 Problems Condition Name Condition Details Condition Category Status Onset Date Resolution Date Last Treatment Date Treating Clinician Comments Source Alcohol withdrawal syndrome with complicati on Alcohol withdrawal syndrome with complicati on Disease Active 08-10 00:00: 00 [facility] Type 2 diabetes mellitus with other specified complicati on Type 2 diabetes mellitus with other specified complicati on Disease Active 12-29 00:00: 00 [facility] Dyslipidem ia Dyslipidem ia Disease Active 12-29 00:00: 00 [facility] Chest pain, unspecifie d type Chest pain, unspecifie d type Disease Active 12-28 00:00: 00 [facility] Priapism Priapism Disease Active 2013-06 1-06 00:00: 00 [facility] Allergies, Adverse Reactions, Alerts Allergy Name Allergy Type Status Severity Reaction(s) Onset Date Inactive Date Treating Clinician Comments Source No Known Drug Allergie s DA Active U 4-25 00:00: 00 [facility] No Known Drug Allergie s DA Active U 0 9-16 00:00: 00 [facility] No Known Drug Allergie s DA Active U 0 3-29 00:00: 00 [facility] No Known Drug Allergie s DA Active U 2019-06 2-16 00:00: 00 [facility] No Known Drug Allergie s DA Active U 2019-06 2-15 00:00: 00 [facility] No Known Drug Allergie s DA Active U 2019-06 2-02 00:00: 00 [facility] Trazodon e Propensi ty to adverse reaction s Active Other - See comments 10-06 00:00: 00 [facility] TRAZODON E DRUG INGREDI Active Other-Cmnt 10-06 00:00: 00 [facility] Social History Social Habit Start Date Stop Date Quantity Comments Source History of tobacco use Cigarette Smoker [facility] Exposure to SARS-CoV-2 (event) 2022-11-01 00:00:00 2022-11-11 13:57:[address] [facility] Tobacco use and exposure 2022-08-10 00:00:00 2022-08-10 00:00:00 User of smokeless tobacco [facility] Alcohol intake 2022-08-10 00:00:00 2022-08-10 00:00:00 Current drinker of alcohol (finding) [facility] Tobacco Comment 2022-08-10 00:00:00 2022-08-10 00:00:00 1/2 a pack a day [facility] Sex Ass[birth year] At 1970 00:00[birth year]00 1970 00:00:[address] [facility] Smoking Status Start Date Stop Date Source Smokes tobacco daily 2022-08-10 00:00:[address] [facility] Medications Ordered Medication Name Filled Medication Name Start Date Stop Date Current Medication? Ordering Clinician Indication Dosage Frequency Signature (SIG) Comments Components Source NaCl 0.9% (NS) bolus infusion 1,000 mL 11-11 19:45: 00 11-11 20:23 :00 No 1000mL at 999 mL/hr, 1,000 mL, IV Piggyback, ONCE, 1 dose, On Thu11/11/22 at 1445, STAT [facility] multivitami n tablet 1 tablet 08-12 15:00: 00 Yes 1{tbl} 1 tablet, Oral, DAILY, First dose on Thu08/12/22 at 0900, Until Discontinu ed, Routine [facility] foLIC acid (FOLATE) tablet 1 mg 08-12 15:00: 00 Yes 1mg 1 mg, Oral, DAILY, First dose on Thu08/12/22 at 0900, Until Discontinu ed, Routine [facility] foLIC acid 1 mg tablet 08-12 00:00: 00 09-12 04:59 :00 No [id number] 1mg Take 1 tablet by mouth in the morning for 30 days. [facility] oxazepam (SERAX) capsule 15 mg 08-11 [...] Thu08/13/22 at 0600, Routine [Order 2 End] [facility] thiamine (VITAMIN B1) tablet 100 mg 08-11 16:15: 00 Yes 100mg 100 mg, Oral, DAILY, First dose on Thu08/11/22 at 1015, Until Discontinu ed, Routine [facility] enoxaparin (LOVENOX) injection 40 mg 08-10 23:00: 00 Yes 40mg 40 mg, Subcutaneo us, DAILY, First dose on Thu08/10/22 at 1700, Until Discontinu ed, Routine [facility] NaCl 0.9% (NS) IV infusion 1,000 mL 08-10 15:00: 00 Yes 1000mL at 125 mL/hr, IV Infusion, CONTINUOUS , Starting on Thu08/10/22 at 0900, Until Discontinu ed, Routine [facility] foLIC acid (FOLATE) 5 mg in NaCl 0.9% (NS) piggyback 08-10 15:00: 00 08-11 16:14 :47 No 5mg IV Piggyback, DAILY, First dose on Thu08/10/22 at 0900, Until Discontinu ed, 50 mL [facility] thiamine (VITAMIN B1) 100 mg in NaCl 0.9% (NS) piggyback 08-10 15:00: 00 08-10 16:08 :00 No 100mg IV Piggyback, DAILY, 1 dose, First dose on Thu08/10/22 at 0900, 50 mL [facility] LORazepam (ATIVAN) injection 2 mg 08-10 14:52: 57 Yes 2mg 2 mg, Slow IV Push, Q4HPRN, Starting on 08/10/22 at 0852, Until Discontinu ed, Routine, Seizures, Agitation, Anxiety [facility] Sliding Scale Insulin-Reg ular + Fsbg Testing 08-10 13:30: 00 Yes Subcutaneo us, AC+HS, First dose on Thu08/10/22 at 0730, Until Discontinu ed, Routine [facility] oxazepam (SERAX) capsule 15 mg 08-10 12:08: 05 Yes 15mg 15 mg, Oral, Q4HPRN, Starting on 08/10/22 at 0608, Until Discontinu ed, Routine, Only while awake for DBP equal to or greater than 100, HR equal to or greater than 100. [facility] dextrose 10% (D10W) bolus infusion 250 [...] blood glucose is < 80 mg/dL, repeat.
[facility] glucagon (GLUCAGEN DIAGNOSTIC KIT) injection 1 mg 08-10 12:03: 20 Yes 1mg 1 mg, Intramuscu lar, PRN, Starting on Thu08/10/22 at 0603, Until Discontinu ed, JACIEL, Blood Glucose < or = 70 mg/dL and patient is NPO, unable to swallow or has mental changes. [facility] ondansetron (ZOFRAN (PF)) injection 4 mg 08-10 12:02: 53 Yes 4mg 4 mg, Slow IV Push, Q6HPRN, Starting on Thu08/10/22 at 0602, Until Discontinu ed, Routine, Nausea and Vomiting (N/V) [facility] ibuprofen (MOTRIN IB) tablet 200 mg 08-10 12:02: 45 Yes 200mg 200 mg, Oral, Q6HPRN, Starting on Thu08/10/22 at 0602, Until Discontinu ed, Routine, Pain (scale 1-3) [facility] NaCl 0.9% (NS) bolus infusion 1,000 mL 08-10 10:15: 00 08-10 13:00 :00 No 1000mL at 999 mL/hr, 1,000 mL, IV Infusion, ONCE, 1 dose, On Thu08/10/22 at 0415, STAT [facility] LORazepam (ATIVAN) injection 0.5 mg 08-10 09:15: 00 08-10 09:19 :00 No .5mg 0.5 mg, Slow IV Push, ONCE, 1 dose, On Thu08/10/22 at 0315, STAT [facility] LORazepam (ATIVAN) injection 1 mg 08-10 08:00: 00 08-10 07:05 :00 No 1mg 1 mg, Slow IV Push, ONCE NOW, 1 dose, On Thu08/10/22 at 0200, STAT [facility] thiamine (VITAMIN B1) injection 100 mg 08-10 06:45: 00 08-10 06:52 :00 No 100mg 100 mg, Intravenou s, ONCE, 1 dose, On 08/10/22 at 0045, JACIEL [facility] LORazepam (ATIVAN) injection 1 mg 08-10 05:15: 00 08-10 05:22 :00 No 1mg 1 mg, Slow IV Push, ONCE, 1 dose, On 08/09/22 at 2315, STAT [facility] ketorolac (TORADOL) injection 15 mg 2021-06 16:00: 00 04-06 14:50 :00 No 15mg 15 mg, Slow IV Push, ONCE, 1 dose, On 04/06/22 at 1100[facility] ([facility]FRAN (PF)) [facility] 4 mg 2021-06 15:45: 00 04-06 14:50 :00 No 4mg 4 mg, Slow IV Push, ONCE, 1 dose, On 04/06/22 at 1045, [facility] oxazepam (SERAX) capsule 15 mg 12-31 06:28: 17 01-01 06:29 :00 No 15mg 15 mg, Oral, Q12H TAPER, 2 doses, First dose on Thu12/31/21 at 0130, Last dose on Thu12/31/21 at 1330, Routine [facility] multivitami n tablet 12-31 00:00: 00 Yes [id number] 1{tbl} Take 1 tablet by mouth in the morning. [facility] thiamine 100 mg tablet 12-31 00:00: 00 Yes [id number] 100mg Take 1 tablet by mouth in the morning. [facility] aspirin 81 mg chewable tablet 12-31 00:00: 00 Yes [id number] 81mg Take 1 tablet by mouth in the morning. [facility] multivitami n tablet 12-31 00:00: 00 Yes [id number] 1{tbl} Take 1 tablet by mouth in the morning. [facility] thiamine 100 mg tablet 12-31 00:00: 00 Yes [id number] 100mg Take 1 tablet by mouth in the morning. [facility] aspirin 81 mg chewable tablet 2021-0 12-31 00:00: 00 Yes [id number] 81mg Take 1 tablet by mouth in the morning. [facility] multivitami n tablet 2021-0 12-31 00:00: 00 Yes [id number] 1{tbl} Take 1 tablet by mouth in the morning. [facility] thiamine 100 mg tablet 0 12-31 00:00: 00 Yes [id number] 100mg Take 1 tablet by mouth in the morning. [facility] aspirin 81 mg chewable tablet 0 12-31 00:00: 00 Yes [id number] 81mg Take 1 tablet by mouth in the morning. [facility] multivitami n tablet 0 12-31 00:00: 00 Yes [id number] 1{tbl} Take 1 tablet by mouth in the morning. [facility] thiamine 100 mg tablet 2021-0 12-31 00:00: 00 Yes [id number] 100mg Take 1 tablet by mouth in the morning. [facility] aspirin 81 mg chewable tablet 12-31 00:00: 00 Yes [id number] 81mg Take 1 tablet by mouth in the morning. [facility] multivitami n tablet 0 12-31 00:00: 00 Yes [id number] 1{tbl} Take 1 tablet by mouth in the morning. [facility] thiamine 100 mg tablet 0 12-31 00:00: 00 Yes [id number] 100mg Take 1 tablet by mouth in the morning. [facility] aspirin 81 mg chewable tablet 0 12-31 00:00: 00 Yes [id number] 81mg Take 1 tablet by mouth in the morning. [facility] multivitami n tablet 2021-0 12-31 00:00: 00 Yes [id number] 1{tbl} Take 1 tablet by mouth in the morning. [facility] thiamine 100 mg tablet 12-31 00:00: 00 Yes [id number] 100mg Take 1 tablet by mouth in the morning. [facility] aspirin 81 mg chewable tablet 12-31 00:00: 00 Yes [id number] 81mg Take 1 tablet by mouth in the morning. [facility] foLIC acid 1 mg tablet 12-31 00:00: 00 01-31 04:59 :00 No [id number] 1mg Take 1 tablet by mouth in the morning for 30 days. [facility] foLIC acid 1 mg tablet 12-31 00:00: 00 01-31 04:59 :00 No [id number] 1mg Take 1 tablet by mouth in the morning for 30 days. [facility] foLIC acid 1 mg tablet 12-31 00:00: 00 01-31 04:59 :00 No [id number] 1mg Take 1 tablet by mouth in the morning for 30 days. [facility] metFORMIN 500 mg tablet 12-30 00:00: 00 Yes [id number] 500mg Take 1 tablet by mouth in the morning and 1 tablet in the evening. Take with meals. [facility] metFORMIN 500 mg tablet 12-30 00:00: 00 Yes [id number] 500mg Take 1 tablet by mouth in the morning and 1 tablet in the evening. Take with meals. [facility] metFORMIN 500 mg tablet 12-30 00:00: 00 Yes [id number] 500mg Take 1 tablet by mouth in the morning and 1 tablet in the evening. Take with meals. [facility] metFORMIN 500 mg tablet 12-30 00:00: 00 Yes [id number] 500mg Take 1 tablet by mouth in the morning and 1 tablet in the evening. Take with meals. [facility] metFORMIN 500 mg tablet 12-30 00:00: 00 Yes [id number] 500mg Take 1 tablet by mouth in the morning and 1 tablet in the evening. Take with meals. [facility] metFORMIN 500 mg tablet 12-30 00:00: 00 Yes [id number] 500mg Take 1 tablet by mouth in the morning and 1 tablet in the evening. Take with meals. [facility] aspirin chewable tablet 81 mg 12-29 14:00: 00 Yes 81mg 81 mg, Oral, DAILY, First dose on 12/29/21 at 0900, Until Discontinu ed, Routine [facility] sulfur hexafluorid e microsphr (LUMASON) injection 5 mL 12-29 13:45: 00 12-29 13:45 :00 No [id number] 5mL 5 mL, Intravenou s, ONCE, 1 dose, On 12/29/21 at 0845, Routine
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 medication : STEFANIE GORMAN [facility] enoxaparin (LOVENOX) injection 40 mg 12-29 13:00: 00 Yes 40mg 40 mg, Subcutaneo us, Q24H, First dose on 12/29/21 at 0800, Until Discontinu ed, Routine [facility] Sliding Scale Insulin - Lispro (HumaLOG) + Fsbg Testing 12-29 13:00: 00 Yes Subcutaneo us, TID MEALS+HS, First dose on 12/29/21 at 0800, Until Discontinu ed, Routine [facility] diazePAM (VALIUM) injection 10 mg 12-29 05:30: 00 12-29 04:40 :00 No 10mg 10 mg, Intravenou s, ONCE, 1 dose, On 12/29/21 at 0030, Routine [facility] diazePAM (VALIUM) injection 10 mg 12-29 04:15: 00 12-29 03:17 :00 No 10mg 10 mg, Intravenou s, ONCE, 1 dose, On 12/28/21 at 2315, Routine [facility] diazePAM (VALIUM) injection 5 mg 12-29 03:45: 01 Yes 5mg 5 mg, Intravenou s, QIDPRN, Starting on 12/28/21 at 2245, Until Discontinu ed, Routine, Seizures, Agitation [facility] foLIC acid (FOLATE) tablet 1 mg 12-29 03:45: 00 Yes 1mg 1 mg, Oral, DAILY, First dose on 12/28/21 at 2245, Until Discontinu ed, Routine [facility] thiamine (VITAMIN B1) tablet 100 mg 12-29 03:45: 00 Yes 100mg 100 mg, Oral, DAILY, First dose (after last modificati on) on 12/28/21 at 2245, Until Discontinu ed, Routine [facility] glucagon (GLUCAGEN DIAGNOSTIC KIT) injection 1 mg 12-29 03:42: 19 Yes 1mg 1 mg, Intramuscu lar, PRN, Starting on 12/28/21 at 2242, Until Discontinu ed, JACIEL, Blood Glucose < or = 70 mg/dL and patient is unable to swallow or has mental changes. [facility] dextrose 10% (D10W) bolus infusion 250 [...] blood glucose is < 80 mg/dL, repeat.
[facility] LORazepam (ATIVAN) injection 1 mg 12-29 03:30: 00 12-29 02:32 :00 No 1mg 1 mg, Intravenou s, ONCE, 1 dose, On 12/28/21 at 2230, Routine
Is the medication being used for status epilepticu s? No [facility] oxazepam (SERAX) capsule 15 mg 12-29 00:28: 20 Yes 15mg 15 mg, Oral, Q4HPRN, Starting on 12/28/21 at 1928, Until Discontinu ed, Routine, Only while awake for DBP equal to or greater than 100, HR equal to or greater than 100. [facility] ondansetron (ZOFRAN (PF)) injection 4 mg 12-29 00:23: 47 Yes 4mg 4 mg, Slow IV Push, Q6HPRN, Starting on 12/28/21 at 1923, Until Discontinu ed, Routine, Nausea and Vomiting (N/V) [facility] acetaminoph en (TYLENOL) tablet 650 mg 12-29 00:23: 37 Yes 650mg 650 mg, Oral, Q6HPRN, Starting on 12/28/21 at 1923, Until Discontinu ed, Routine, Pain (scale 1-3), Temp > 38.5 C [facility] chlordiazeP OXIDE (LIBRIUM) capsule 25 mg 12-28 23:15: 00 12-28 23:24 :00 No 25mg 25 mg, Oral, ONCE, 1 dose, On 12/28/21 at 1815, JACIEL [facility] NaCl 0.9% (NS) bolus infusion 2,000 mL 12-28 22:45: 00 12-28 23:18 :00 No 2000mL at 999 mL/hr, 2,000 mL, IV Infusion, ONCE, 1 dose, On 12/28/21 at 1745, JACIEL [facility] LORazepam (ATIVAN) injection 1 mg 12-28 20:45: 00 12-28 20:49 :00 No 1mg 1 mg, Slow IV Push, ONCE, 1 dose, On 12/28/21 at 1545, STAT
Is the medication being used for status epilepticu s? No [facility] acetaminoph en (TYLENOL) 500 mg tablet 10-06 00:00: 00 Yes 500mg Take 1 Tab by mouth every 6 (six) hours as needed for Pain. [facility] acetaminoph en (TYLENOL) 500 mg tablet 10-06 00:00: 00 Yes 500mg Take 1 Tab by mouth every 6 (six) hours as needed for Pain. [facility] acetaminoph en (TYLENOL) 500 mg tablet 10-06 00:00: 00 Yes 500mg Take 1 Tab by mouth every 6 (six) hours as needed for Pain. [facility] acetaminoph en (TYLENOL) 500 mg tablet 10-06 00:00: 00 Yes 500mg Take 1 Tab by mouth every 6 (six) hours as needed for Pain. [facility] acetaminoph en (TYLENOL) 500 mg tablet 10-06 00:00: 00 Yes 500mg Take 1 Tab by mouth every 6 (six) hours as needed for Pain. [facility] acetaminoph en (TYLENOL) 500 mg tablet 10-06 00:00: 00 Yes 500mg Take 1 Tab by mouth every 6 (six) hours as needed for Pain. [facility] Vital Signs Vital Name Observation Time Observation Value Comments S alliglo Systolic blood pressure 2022-11-11 20:31:31 116 mm[Hg] [facility] Diastolic blood pressure 2022-11-11 20:31:31 77 mm[Hg] [facility] Heart rate 2022-11-11 20:31:31 84 /min [facility] Respiratory rate 2022-11-11 20:31:31 12 /min [facility] Oxygen saturation in Arterial blood by Pulse oximetry 2022-11-11 20:31:31 90 /min [facility] Body temperature 2022-11-11 18:49:[address] [facility] Body height 2022-11-11 18:49:00 160 cm [facility] Body weight 2022-11-11 18:49:00 68.04 kg [facility] BMI 2022-11-11 18:49:00 26.57 kg/m2 [facility] Body temperature 2022-08-11 14:00:[address] [facility] Systolic blood pressure 2022-08-11 10:00:00 116 mm[Hg] [facility] Diastolic blood pressure 2022-08-11 10:00:00 71 mm[Hg] [facility] Heart rate 2022-08-11 10:00:00 70 /min [facility] Respiratory rate 2022-08-11 10:00:00 16 /min [facility] Body weight 2022-08-11 10:00:00 65.499 kg [facility] BMI 2022-08-11 10:00:00 25.58 kg/m2 [facility] Oxygen saturation in Arterial blood by Pulse oximetry 2022-08-11 10:00:00 100 /min [facility] Body height 2022-08-10 22:12:00 160 cm [facility] Systolic blood pressure 2022-04-06 16:00:00 125 mm[Hg] [facility] Diastolic blood pressure 2022-04-06 16:00:00 75 mm[Hg] [facility] Heart rate 2022-04-06 16:00:00 87 /min [facility] Respiratory rate 2022-04-06 16:00:00 22 /min [facility] Oxygen saturation in Arterial blood by Pulse oximetry 2022-04-06 16:00:00 98 /min [facility] Body temperature 2022-04-06 14:41:[address] [facility] Body height 2022-04-06 14:41:00 160 cm [facility] Body weight 2022-04-06 14:41:00 63.504 kg [facility] BMI 2022-04-06 14:41:00 24.80 kg/m2 [facility] Systolic blood pressure 2022-01-20 02:27:00 121 mm[Hg] [facility] Diastolic blood pressure 2022-01-20 02:27:00 75 mm[Hg] [facility] Heart rate 2022-01-20 02:27:00 79 /min [facility] Respiratory rate 2022-01-20 02:27:00 12 /min [facility] Oxygen saturation in Arterial blood by Pulse oximetry 2022-01-20 02:27:00 98 /min [facility] Body temperature 2022-01-19 22:19:[address] [facility] Body weight 2022-01-19 22:19:00 60.328 kg [facility] BMI 2022-01-19 22:19:00 23.56 kg/m2 [facility] Systolic blood pressure 2021-12-30 20:52:00 134 mm[Hg] [facility] Diastolic blood pressure 2021-12-30 20:52:00 76 mm[Hg] [facility] Heart rate 2021-12-30 20:52:00 67 /min [facility] Body temperature 2021-12-30 20:26:[address] [facility] Oxygen saturation in Arterial blood by Pulse oximetry 2021-12-30 20:26:00 99 /min [facility] Respiratory rate 2021-12-30 16:21:00 18 /min [facility] Body weight 2021-12-30 08:27:00 60.464 kg [facility] BMI 2021-12-30 08:27:00 23.61 kg/m2 [facility] Body height 2021-12-29 01:29:00 160 cm [facility] Procedures Procedure Date / Time Performed Performing Clinician Source MAGNESIUM 2022-11-11 19:05:00 Hemant Klein [facility] BASIC METABOLIC PANEL (NA, K, CL, CO2, GLUCOSE, BUN, CREATININE, CA) 2022-11-11 19:05:[address] [facility] ETHANOL 2022-11-11 19:05:00 Hemant Klein [facility] CBC WITH DIFF 2022-11-11 19:05:00 Hemant Klein [facility] POCT GLUCOSE (AUTOMATED) 2022-08-11 13:36:[address] [facility] PHOSPHORUS 2022-08-11 10:35:00 Jessica Prado [facility] MAGNESIUM 2022-08-11 10:35:00 Jessica Prado [facility] AMMONIA, PLASMA 2022-08-11 10:35:00 Jessica Prado [facility] COMP. METABOLIC PANEL ([id number]) 2022-08-11 10:35[facility] 2022-08-11 10:35:00 Oswald Murphy [facility] POCT GLUCOSE (AUTOMATED) 2022-08-11 02:15:[address] [facility] POCT GLUCOSE (AUTOMATED) 2022-08-10 23:10:00 [address] [facility] POCT GLUCOSE (AUTOMATED) 2022-08-10 18:20:00 [address] [facility] POCT GLUCOSE (AUTOMATED) 2022-08-10 14:11:00 Arvind Prado [facility] POCT GLUCOSE (AUTOMATED) 2022-08-10 10:59:[address] [facility] COVID-19 (ID NOW RAPID TESTING) 2022-08-10 07:17:[address] [facility] LAB ONLY COVID INTERPRETATION 2022-08-10 07:17:[address] [facility] HB ECG ROUTINE & RHYTHM STRIP 2022-08-10 06:03:[address] [facility] URINALYSIS 2022-08-10 05:46:00 [facility] URINE DRUG (IMMUNOASSAY) - COMPREHENSIVE DRUG SCREEN W/O REFLEX 2022-08-10 05:45:[address] [facility] CREATINE KINASE 2022-08-10 05:16:00 [facility] 2022-[facility]-10 05:16:00 Rayray Driscoll [facility] MAGNESIUM 2022-08-10 05:16:00 Rayray Driscoll [facility] TROPONIN I 2022-08-10 05:16:00 [facility] COMP. METABOLIC PANEL ([id number]) 2022-08-10 05:16:[address] [facility] ETHANOL 2022-08-10 05:16:00 Rayray Driscoll [facility] CBC WITH DIFF 2022-08-10 05:16:00 Rayray Driscoll [facility] N-TERMINAL PRO-BNP 2022-08-10 05:16:[address] [facility] CRITICAL CARE 2022-08-10 04:52:00 Rayray Driscoll [facility] XR CHEST 1 VW 2022-04-06 14:51:50 Diya Chowdhury [facility] LIPASE 2022-04-06 14:42:00 [facility] 2022-04-06 14:42:00 Diya Chowdhury Un [facility] COMP. METABOLIC PANEL (78565) 2022-04-06 14:42:[address] [facility] CBC WITH DIFF 2022-04-06 14:42:00 Diya Chowdhury [facility] PROTHROMBIN TIME / INR 2022-04-06 14:42:[address] [facility] ACTIVATED PARTIAL THRMPLAS NELDA 2022-04-06 14:42:[address] [facility] LACTIC ACID WHOLE BLOOD 2022-01-20 00:22:[address] [facility] URINE DRUG (IMMUNOASSAY) - COMPREHENSIVE DRUG SCREEN 2022-01-19 23:10:[address] [facility] URINALYSIS 2022-01-19 23:10:00 Leticia Baldwin [facility] TROPONIN I 2022-01-19 23:00:00 Leticia Baldwin [facility] COMP. METABOLIC PANEL ([id number]) 2022-01-19 23:00:[address] [facility] LITHIUM 2022-01-19 23:00:00 [facility]22-[facility]-19 23:00:00 [facility] CBC WITH DIFF 2022-01-19 23:00:00 Leticia Baldwin [facility] COVID-19 (ID NOW RAPID TESTING) 2022-01-19 23:00:[address] [facility] CT HEAD WO CONTRAST 2022-01-19 22:49:[address] [facility] XR CHEST 1 VW 2022-01-19 22:41:00 Leticia Baldwin [facility] POCT GLUCOSE (AUTOMATED) 2022-01-19 22:25:[address] [facility] POCT GLUCOSE (AUTOMATED) 2021-12-30 21:55:[address] [facility] POCT GLUCOSE (AUTOMATED) 2021-12-30 16:21:[address] [facility] POCT GLUCOSE (AUTOMATED) 2021-12-30 12:30:[address] [facility] HEPATIC FUNCTION PANEL (08347) (ALB,T.PRO,BILI T,BU/BC,ALT,AST,ALK PHOS) 2021-12-30 09:28:[address] [facility] POCT GLUCOSE (AUTOMATED) 2021-12-30 02:11:[address] [facility] POCT GLUCOSE (AUTOMATED) 2021-12-29 21:41:[address] [facility] POCT GLUCOSE (AUTOMATED) 2021-12-29 16:37:[address] [facility] TRANSTHORACIC ECHO (TTE) COMPLETE W/ CONTRAST 2021-12-29 13:05:[address] [facility] POCT GLUCOSE (AUTOMATED) 2021-12-29 12:41:[address] [facility] TROPONIN I 2021-12-29 09:42:00 [place], Jessica [facility] TROPONIN I 2021-12-29 04:55:00 Jessica Prado [facility] CT HEAD WO CONTRAST 2021-12-28 21:18:[address] [facility] AMMONIA, PLASMA 2021-12-28 21:00:00 Pia Renteria [facility] COVID-19 (ID NOW RAPID TESTING) 2021-12-28 20:42:[address] [facility] LAB ONLY COVID INTERPRETATION 2021-12-28 20:42:[address] [facility] URINE DRUG (IMMUNOASSAY) - COMPREHENSIVE DRUG SCREEN W/O REFLEX 2021-12-28 20:42:[address] [facility] URINALYSIS 2021-12-28 20:40:00 [facility] 2021-12-28 20:40:[address] [facility] TROPONIN I 2021-12-28 20:40:00 Pia Renteria [facility] THYROID STIMULATING HORMONE 2021-12-28 20:40:[address] [facility] COMP. METABOLIC PANEL (49134) 2021-12-28 20:40:[address] [facility] LIPID PANEL (90707)(TOTAL CHOLESTEROL, TRIGLYCERIDES, HDL) 2021-12-28 20:40:[address] [facility] ETHANOL 2021-12-28 20:40:00 Demetrius Langford [facility] CBC WITH DIFF 2021-12-28 20:40:00 Pia Renteria [facility] GLYCOSYLATED HEMOGLOBIN (A1C) 2021-12-28 20:40:[address] [facility] PROTHROMBIN TIME / INR 2021-12-28 20:40:[address] [facility] XR CHEST 1 VW 2021-12-28 20:16:00 Pia Renteria [facility] HB ECG ROUTINE & RHYTHM STRIP 2021-12-28 20:04:[address] [facility] Encounters Start Date/Time End Date/Time Encounter Type Admission Type Attending [facility] Care Department Encounter ID Source 2021-09-17 16:45:00 Inpatient [facility] [id number] 2020-06-06 16:07:00 Inpatient [facility] [id number] 2020-06-06 06:20:00 Inpatient [facility] [id number] 2020-06-05 19:35:00 Inpatient [facility] [id number] 2020-05-23 19:53:00 Inpatient [facility] [id number] 2020-05-23 19:53:00 Inpatient [facility] [id number] 2022-11-11 13:50:00 2022-11-11 16:07:00 Emergency X HEMANT KLEIN [facility] [id number] [facility] 2022-11-11 13:50:00 2022-11-11 16:07:00 Emergency Jessica [facility] [id number] [id number] [id number] [facility] 2022-10-14 20:59:00 2022-10-14 20:59:00 Emergency [facility] [id number] 2022-10-14 20:59:00 2022-10-14 20:59:00 Emergency Emergency ClareDeborah brotherschloe [facility] [id number] 2022-08-09 22:59:00 2022-08-11 13:02:00 Outpatient JESSICA GAINES [facility] [id number] [facility] 2022-08-09 22:59:00 2022-08-11 13:02:00 Emergency Rayray Driscoll [facility]elani Edionwe[facility] [id number] [id number] [id number] [id number] [facility] 2022-04-06 09:38:00 2022-04-06 11:42:00 Emergency X DIYA CHOWDHURY [facility] ERT [id number] [facility] 2022-04-06 09:38:00 2022-04-06 11:42:00 Emergency Diya Chowdhury [facility] [id number] 4.2.7.2.686 [id number] [facility] 2022-03-07 12:38:00 2022-03-07 12:38:00 Emergency [facility] [id number] 2022-03-07 12:38:00 2022-03-07 12:38:00 Emergency Emergency Fidel Cuellar [facility] [id number] 2022-01-19 17:18:00 2022-01-19 22:00:00 Emergency X DIRK YARBROUGH [facility] ERT [id number] [facility] 2022-01-19 17:18:00 2022-01-19 22:00:00 Emergency Leticia Baldwin Julio C [facility] [id number] 350.1.13.10 4.2.7.2.686 [id number] [facility] 2021-12-31 00:00:00 2021-12-31 00:00:00 Transition of Care Faye Portillo [id number] [id number] 4.2.7.2.686 [id number] [facility] 2021-12-28 14:53:00 2021-12-30 17:42:00 Inpatient X JESSICA PRADO [facility] MARGO [id number] [facility] 2021-12-28 14:53:00 2021-12-30 17:42:00 Hospital Encounter Pia Renteria Jelani [facility] [id number] [id number] 4.2.7.2.686 [id number] [facility] 2021-09-17 16:47:00 2021-09-17 16:47:00 Emergency [facility] [id number] 2020-06-06 16:07:00 2020-06-06 16:07:00 Emergency [facility] [id number] [facility] Results Test Description Test Time Test Comments Results Resul t Comments Source ETHANOL 2022-11-11 19:45:56 ALCOHOL<10mg/dL0 11/11/2022 2:45 PM [facility]<10 Yimuhzoa29-633 Toxic>100 Depression of INSURANCE LEGAL 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 [facility] 19:41:47* Test Item Value Reference Range Interpretation Comme nts MAGNESIUM (test code = 5463849811) 1.8 mg/dL 1.7-2.4 Lab Interpretation (test cod e = 80745-3) Normal [facility] WITH [id number] 19:25:26* Test Item Value Reference Range Interpretation [...] 33.9 g/dL 31.2-35.0 RDW-SD (test code = 21738-1) 46.0 fL 38.5-51.6 RDW-CV (test code = 788-0) 13.5 % 12.1-15.4 PLT (test code = 777-3) 237 See_Comment [Automated messa ge] The system which generated this result transmitted reference range: 150 - 328 10*3/?L. The reference range was not used to interpret this result as normal/abnormal. MPV (test code = 08092-8) 8.9 fL 9.8-13.0 L NRBC/100 WBC (test code = 5428525828) 0.0 See_Comment [Automated [employer] ssage] The system which generated this result transmitted reference range: 0.0 - 10.0 /100 WBCs. The reference range was not used to interpret this result as normal/abnormal. NRBC x10^3 (test code = 6015520534) See_Comment [Automated [employer]] The system which generated this result transmitted reference range: 10*3/?L. The reference range was not used to interpret this result as normal/abnormal. GRAN MAT (NEUT) % (test code = 770-8) 71.2 % IMM GRAN % (test code = 8679652446) 0.30 % LYMPH % (test code = 736-9) 18.2 % MONO % (test code = 5905-5) 8.4 % EOS % (test code = 713-8) 1.0 % BASO % (test code = 706-2) 0.9 % GRAN MAT x10^3(ANC) (test code = 4139994270) 4.86 10*3/uL 1.99-6.95 IMM GRAN x10^3 (test code = 7292205655) 0.00-0.06 LYMPH x10^3 (test code = 731-0) 1.24 10*3/uL 1.09-3.23 MONO x10^3 (test code = 742-7) 0.57 10*3/uL 0.36-1.02 EOS x10^3 (test code = 711-2) 0.07 10*3/uL 0.06-0.53 BASO x10^3 (test code = 704-7) 0.06 10*3/uL 0.01-0.09 Lab Interpretation (test code = 25742-6) [facility]normal [facility], Urinalysis Rflx Cult/[id number] 22:20:00* Test Item Value Reference Range Interpretation Comme nts Color,Urine (test code = UCOL) Yellow Yellow Clarity,Urine (test code = UCLAR) Clear Clear Ph, Urine (test code = UPH) 7.0 5.0-9.0 N Specific [place],Urine (test code = USG) 1.020 1.005-1.030 N [...] code = ULEU) Negative mg/dL Negative Drug Screen,[id number] 22:20:00* Test Item Value Reference Range Interpretation [...] UPROP) Negative Negative Complete Blood Count Auto [id number] 21:21:00* Test Item Value Reference Range Interpretation [...] code = NRBCP) 0 % Comprehensive Metabolic [id number] 21:21:00* Test Item Value Reference Range Interpretation [...] a race coefficient. Additional information canbe found at:[email or web address]_[email or web address] 5.pdf ([email or web address]) [Automated message] The system [...] = ALP) 134 U/L 46-116 H Ethanol Xjjqx9622-09-15 21:21:00* Test Item Value Reference Range Interpretation Comme nts Ethanol (test code = ETOH) < 3 mg/dL The pharmacologi yudy response to blood alcohol levels mayvary from individual to individual. The fatal concentrationhas been reported to be >400mg/dL. POCT GLUCOSE (AUTOMATED)2022-08-11 13:40:35* Test Item Value Reference Range Interpretation Comme nts POCT GLU (test code = 7502108477) 121 mg/dL 70-110 H Lab Interpretation (test cod e = 80221-1) Abnormal [facility] GLUCOSE (AUTOMATED)2022-08-11 02:18:58* Test Item Value Reference Range Interpretation Comme nts POCT GLU (test code = 3039815130) 183 mg/dL 70-110 H Lab Interpretation (test cod e = 59932-7) Abnormal [facility] GLUCOSE (AUTOMATED)2022-08-10 23:16:11* Test Item Value Reference Range Interpretation Comme nts POCT GLU (test code = 3826846199) 176 mg/dL 70-110 H Lab Interpretation (test cod e = 28864-1) Abnormal [facility] GLUCOSE (AUTOMATED)2022-08-10 18:22:51* Test Item Value Reference Range Interpretation Comme nts POCT GLU (test code = 0094677404) 165 mg/dL 70-110 H Lab Interpretation (test cod e = 92570-6) Abnormal [facility] GLUCOSE (AUTOMATED)2022-08-10 14:18:05* Test Item Value Reference Range Interpretation Comme nts POCT GLU (test code = 9330200332) 138 mg/dL 70-110 H Lab Interpretation (test cod e = 76517-8) Abnormal [facility] GLUCOSE (AUTOMATED)2022-08-10 11:01:21* Test Item Value Reference Range Interpretation Comme nts POCT GLU (test code = 8816382735) 143 mg/dL 70-110 H Lab Interpretation (test cod e = 40778-3) [facility]normal [facility] [id number] 06:51:18* Test Item Value Reference Range Interpretation Comme nts TROPONIN I (test code = 6712120069) 0.008 ng/mL <=0.034 JUAN ALBERTO (test code [...] of biotin. Lab Interpretation (test code = 22684-9) Normal [facility] LTP-[id number] 06:47:37* Test Item Value Reference Range Interpretation Comme nts NT-proBNP (test code = 6476100873) 37 pg/mL <=125 JUAN ALBERTO (test code = JUAN ALBERTO) Biotin has been reported to cause a negative bias, interpret results relative to patient's use of biotin. Lab Interpretation (test code = 40905-1) Normal [facility]OL2023-02-19 06:25:52 ALCOHOL<10mg/dL08/10/2022 12:25 [facility] Oroeqibg98-450 Toxic>100 Depression of INSURANCE LEGAL 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 Fatalities ReportedUnDriscoll [facility]'s HospitalCOMP. METABOLIC PANEL (21994)2022-08-10 06:19:15* Test Item Value Reference Range Interpretation Comme nts NA (test code = 7541318138) 135 mmol/L 135-145 K (test code = 5671103595) 4.3 mmol/L 3.5-5.0 CL (test code = 0532408490) 98 mmol/L 98-108 CO2 TOTAL (test code = 2619814529) 30 mmol/L 23-31 AGAP (test code = 3689345127) 7 2-16 BUN (test code = 5126646794) 11 mg/dL 7-23 GLUCOSE (test code = 0260248457) 153 mg/dL 70-110 H CREATININE (test code = 9252401761) 0.77 mg/dL 0.60-1.25 TOTAL BILI (test code = 0329672671) 0.9 mg/dL 0.1-1.1 CALCIUM (test code = 7589895062) 10.0 mg/dL 8.6-10.6 T PROTEIN (test code = 8815782173) 7.7 g/dL 6.3-8.2 ALBUMIN (test code = 2101258306) 4.6 g/dL 3.5-5.0 ALK PHOS (test code = 1905277631) 92 U/L 34-122 ALTv (test code = 1742-6) 35 U/L 5-50 AST(SGOT) (test code = 4769092822) 42 U/L 13-40 H eGFR (test code = 3593235305) 106.1 mL/min/1.73m2 JUAN ALBERTO (test code = [...] imaging tests). Lab Interpretation (test code = 96077-1) Abnormal [facility]2023-02-19 06:19:15* Test Item Value Reference Range Interpretation Comme nts MAGNESIUM (test code = 3914019664) 2.2 mg/dL 1.7-2.4 Lab Interpretation (test cod e = 82592-7) Normal [facility]2023-02-19 06:18:55* Test Item Value Reference Range Interpretation Comme nts LIPASE (test code = 5767409537) 18 U/L 0-220 Lab Interpretation (test cod e = 25860-6) Normal [facility] HospitalCREATINE [id number] 06:18:55* Test Item Value Reference Range Interpretation Comme nts CK (test code = 8424582988) 174 U/L 33-194 Lab Interpretation (test cod e = 95827-6) Normal [facility] WITH [id number] 06:02:35* Test Item Value Reference Range Interpretation Comme nts WBC (test code = 6690-2) 7.50 See_Comment [Automated [employer]] The system which generated this result transmitted reference range: 4.20 - 10.70 10*3/?L. The reference range was not used to interpret this result as normal/abnormal. RBC (test code = 789-8) 4.80 See_Comment [Automated [employer]] The system which generated this result transmitted [...] 32.4 g/dL 31.2-35.0 RDW-SD (test code = 59343-0) 50.2 fL 38.5-51.6 RDW-CV (test code = 788-0) 14.3 % 12.1-15.4 PLT (test code = 777-3) 241 See_Comment [Automated messa ge] The system which generated this result transmitted reference range: 150 - 328 10*3/?L. The reference range was not used to interpret this result as normal/abnormal. MPV (test code = 95715-5) 8.6 fL 9.8-13.0 L NRBC/100 WBC (test code = 6482113712) 0.0 See_Comment [Automated [employer] ssage] The system which generated this result transmitted reference range: 0.0 - 10.0 /100 WBCs. The reference range was not used to interpret this result as normal/abnormal. NRBC x10^3 (test code = 3182533675) See_Comment [Automated messa ge] The system which generated this result transmitted reference range: 10*3/?L. The reference range was not used to interpret this result as normal/abnormal. GRAN MAT (NEUT) % (test code = 770-8) 63.9 % IMM GRAN % (test code = 0234690125) 0.50 % LYMPH % (test code = 736-9) 17.6 % MONO % (test code = 5905-5) 16.5 % EOS % (test code = 713-8) 0.7 % BASO % (test code = 706-2) 0.8 % GRAN MAT x10^3(ANC) (test code = 1059807412) 4.79 10*3/uL 1.99-6.95 IMM GRAN x10^3 (test code = 0186589489) 0.04 10*3/uL 0.00-0.06 LYMPH x10^3 (test code = 731-0) 1.32 10*3/uL 1.09-3.23 MONO x10^3 (test code = 742-7) 1.24 10*3/uL 0.36-1.02 H EOS x10^3 (test code = 711-2) 0.05 10*3/uL 0.06-0.53 L BASO x10^3 (test code = 704-7) 0.06 10*3/uL 0.01-0.09 Lab Interpretation (test code = 21415-7) [facility]normal [facility] [id number] 15:15:32* Test Item Value Reference Range Interpretation Comments TROPONIN I (test code = 7618675704) 0.007 ng/mL See_Comment [Automated message] The system [...] of biotin. Lab Interpretation (test code = 89412-5) Normal [facility] HospitalaPTT2022-10-16 15:08:29* Test Item Value Reference Range Interpretation Comme [facility] APTT Patient (test code = 3173-2) See_Comment [Automated message] The system which generated this result transmitted reference range: 23 - 38 Seconds. The reference range was not used to interpret this result as normal/abnormal. JUAN ALBERTO (test code = JUAN ALBERTO) The [facility] patient population mean normal value for aPTT is 30 seconds. Lab Interpretation (test code = 16459-0) Normal [facility] HospitalPROTHROMBIN TIME / [id number] 15:06:28* Test Item Value Reference Range Interpretation Comme [facility] PROTIME PATIENT (test code = 5964-2) See_Comment [Automated [employer]] The system which generated this result transmitted reference range: 12.0 - 14.7 Seconds. The reference range was not used to interpret this result as normal/abnormal. INR (test code = 6301-6) Normal INR <1.1; Warfarin Therapeutic range 2.0 to 3.0 or 2.5 to 3.5, depending upon the indications. Lab Interpretation (test code = 05778-0) Normal [facility] HospitalCOMP. METABOLIC PANEL (36087)2022-04-06 15:03:31* Test Item Value Reference Range Interpretation Comme nts NA (test code = 1310847675) 136 mmol/L 135-145 K (test code = 3845241089) 5.0 mmol/L 3.5-5 CL (test code = 5315373264) 104 mmol/L 98-108 CO2 TOTAL (test code = 7554677943) 21 mmol/L 23-31 L AGAP (test code = 4742529082) 2-16 BUN (test code = 3068796064) 11 mg/dL 7-23 GLUCOSE (test code = 5902814297) 162 mg/dL 70-110 H CREATININE (test code = 9370225930) 0.52 mg/dL 0.6-1.25 L TOTAL BILI (test code = 5104242721) 1.0 mg/dL 0.1-1.1 CALCIUM (test code = 8424031827) 9.3 mg/dL 8.6-10.6 T PROTEIN (test code = 8111381672) 7.4 g/dL 6.3-8.2 ALBUMIN (test code = 4711911510) 4.4 g/dL 3.5-5 ALK PHOS (test code = 3093505800) 134 U/L 34-122 H ALTv (test code = 1742-6) 17 U/L 5-50 AST(SGOT) (test code = 0777577447) 38 U/L 13-40 eGFR (test code = 4838177459) mL/min/1.73m2 JUAN ALBERTO (test code = JUAN [...] imaging tests). Lab Interpretation (test code = 91726-6) [facility]normal [facility] HospitalLIP[facility], [id number] 15:03:31* Test Item Value Reference Range Interpretation Comme nts LIPASE (test code = 2613195709) 29 U/L 0-220 Lab Interpretation (test cod e = 52697-9) Normal [facility]CB WITH [id number] 14:51:49* Test Item Value Reference Range Interpretation Comme nts WBC (test code = 6690-2) See_Comment [[employer]] The system which generated this result transmitted reference range: 4.20 - 10.70 10*3/?L. The reference range was not used to interpret this result as normal/abnormal. RBC (test code = 789-8) See_Comment [Automated [employer]] The system which generated this result transmitted [...] 34.0 g/dL 31.2-35 RDW-SD (test code = 58920-7) 45.9 fL 38.5-51.6 RDW-CV (test code = 788-0) 13.3 % 12.1-15.4 PLT (test code = 777-3) See_Comment [Automated messa ge] The system which generated this result transmitted reference range: 150 - 328 10*3/?L. The reference range was not used to interpret this result as normal/abnormal. MPV (test code = 21883-5) 8.4 fL 9.8-13 L NRBC/100 WBC (test code = 8971891575) See_Comment [Automated [employer] ssage] The system which generated this result transmitted reference range: 0.0 - 10.0 /100 WBCs. The reference range was not used to interpret this result as normal/abnormal. NRBC x10^3 (test code = 4808025283) See_Comment [Automated messa ge] The system which generated this result transmitted reference range: 10*3/?L. The reference range was not used to interpret this result as normal/abnormal. GRAN MAT (NEUT) % (test code = 770-8) 63.0 % IMM GRAN % (test code = 0645830695) 0.50 % LYMPH % (test code = 736-9) 25.2 % MONO % (test code = 5905-5) 9.8 % EOS % (test code = 713-8) 0.3 % BASO % (test code = 706-2) 1.2 % GRAN MAT x10^3(ANC) (test code = 5005025629) 3.73 10*3/uL 1.99-6.95 IMM GRAN x10^3 (test code = 3141735811) 0.03 10*3/uL 0-0.06 LYMPH x10^3 (test code = 731-0) 1.49 10*3/uL 1.09-3.23 MONO x10^3 (test code = 742-7) 0.58 10*3/uL 0.36-1.02 EOS x10^3 (test code = 711-2) 0.06-0.53 L BASO x10^3 (test code = 704-7) 0.07 10*3/uL 0.01-0.09 Lab Interpretation (test code = 96236-5) [facility]normal [facility], Urinalysis Rflx Cult/Vruex6627-88-76 13:53:00* Test Item Value Reference Range Interpretation Comme nts Color,Urine (test code = UCOL) Yellow Yellow Clarity,Urine (test code = UCLAR) Cloudy Clear A Ph, Urine (test code = UPH) 7.5 5.0-9.0 N Specific [place],Urine (test code = USG) 1.025 1.005-1.030 N [...] = ULEU) Negative mg/dL Negative UF REFLEXDrug Screen,Ogeop1978-55-84 13:53:00* Test Item Value Reference Range Interpretation [...] UPROP) Negative Negative Complete Blood Count Auto [id number] 12:58:00* Test Item Value Reference Range Interpretation [...] = NRBCP) 0 % Coronavirus PCR, COVID19 Wepqd7997-89-11 12:58:00* Test Item Value Reference Range Interpretation Comme nts Coronavirus PCR, COVID19 Rapid (test code = SARSCOV2) Coronavirus PCR, COVID19 Rapid (test code = IOEVSDD41.1) Reference Range: Negative SARS-CoV-2 PCR Result: (test code = SARS-CoV-2 PCR Result:) Negative by RT-PCR COVID-19 Status: AsymptomaticComprehensive Metabolic [id number] 12:58:00* Test Item Value Reference Range Interpretation [...] = ALP) 144 U/L 46-116 H Ethanol [id number] 12:58:00* Test Item Value Reference Range Interpretation Comme nts Ethanol (test code = ETOH) < 3 mg/dL The pharmacologi yudy response to blood alcohol levels mayvary from individual to individual. The fatal concentrationhas been reported to be >400mg/dL. [id number] 01:47:56* Test Item Value Reference Range Interpretation Comme nts Prosper (test code = 4796646842) 0.7 mmol/L 0.6-1.2 JUAN ALBERTO (test code = JUAN ALBERTO) Toxic Range: ? Greater than 1.2 mmol/L Lab Interpretation (test code = 93611-9) Normal [facility] [id number] 00:26:53* Test Item Value Reference Range Interpretation Comments TROPONIN I (test code = 2922274510) 0.002 ng/mL See_Comment [Automated message] The system [...] of biotin. Lab Interpretation (test code = 42520-2) Normal [facility] HospitalETHANOL2022-08-01 00:18:52 ALCOHOL<10mg/dL01/19/2022 7:18 PM [facility]<10 Rprnhbeu10-642 Toxic>100 Depression of INSURANCE LEGAL 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 [facility] HospitalCOMP. METABOLIC PANEL (67636)2022-01-20 00:16:16* Test Item Value Reference Range Interpretation Comme nts NA (test code = 3314636580) 137 mmol/L 135-145 K (test code = 1862117718) 4.5 mmol/L 3.5-5 CL (test code = 9706319013) 103 mmol/L 98-108 CO2 TOTAL (test code = 8204221408) 26 mmol/L 23-31 AGAP (test code = 5083568242) 2-16 BUN (test code = 9255049910) 10 mg/dL 7-23 GLUCOSE (test code = 2306513905) 121 mg/dL 70-110 H CREATININE (test code = 3041938713) 0.65 mg/dL 0.6-1.25 TOTAL BILI (test code = 5386604987) 0.8 mg/dL 0.1-1.1 CALCIUM (test code = 6127596827) 11.4 mg/dL 8.6-10.6 H T PROTEIN (test code = 0807730823) 7.2 g/dL 6.3-8.2 ALBUMIN (test code = 8498514845) 4.6 g/dL 3.5-5 ALK PHOS (test code = 3872088243) 112 U/L 34-122 ALTv (test code = 1742-6) 19 U/L 5-50 AST(SGOT) (test code = 9386929688) 26 U/L 13-40 eGFR (test code = 6862378218) mL/min/1.73m2 JUAN ALBERTO (test code = JUAN [...] imaging tests). Lab Interpretation (test code = 29312-8) Abnormal [facility] WITH [id number] 23:43:54* Test Item Value Reference Range Interpretation Comme nts WBC (test code = 6690-2) See_Comment [Automated [employer]] The system which generated this result transmitted reference range: 4.20 - 10.70 10*3/?L. The reference range was not used to interpret this result as normal/abnormal. RBC (test code = 789-8) See_Comment [[employer]] The system which generated this result transmitted [...] 34.4 g/dL 31.2-35 RDW-SD (test code = 82603-3) 44.0 fL 38.5-51.6 RDW-CV (test code = 788-0) 12.6 % 12.1-15.4 PLT (test code = 777-3) See_Comment [Automated messa ge] The system which generated this result transmitted reference range: 150 - 328 10*3/?L. The reference range was not used to interpret this result as normal/abnormal. MPV (test code = 29329-4) 9.1 fL 9.8-13 L NRBC/100 WBC (test code = 2252473954) See_Comment [Automated me ssage] The system which generated this result transmitted reference range: 0.0 - 10.0 /100 WBCs. The reference range was not used to interpret this result as normal/abnormal. NRBC x10^3 (test code = 5526392361) See_Comment [Automated messa ge] The system which generated this result transmitted reference range: 10*3/?L. The reference range was not used to interpret this result as normal/abnormal. GRAN MAT (NEUT) % (test code = 770-8) 69.8 % IMM GRAN % (test code = 4340810884) 0.40 % LYMPH % (test code = 736-9) 18.0 % MONO % (test code = 5905-5) 10.9 % EOS % (test code = 713-8) 0.1 % BASO % (test code = 706-2) 0.8 % GRAN MAT x10^3(ANC) (test code = 8968827928) 5.58 10*3/uL 1.99-6.95 IMM GRAN x10^3 (test code = 2767370906) 0.03 10*3/uL 0-0.06 LYMPH x10^3 (test code = 731-0) 1.44 10*3/uL 1.09-3.23 MONO x10^3 (test code = 742-7) 0.87 10*3/uL 0.36-1.02 EOS x10^3 (test code = 711-2) 0.06-0.53 L BASO x10^3 (test code = 704-7) 0.06 10*3/uL 0.01-0.09 Lab Interpretation (test code = 08073-1) Abnormal [facility] GLUCOSE (AUTOMATED)2022-01-19 22:27:41* Test Item Value Reference Range Interpretation Comme nts POCT GLU (test code = 7346931278) 123 mg/dL 70-110 H Lab Interpretation (test cod e = 61203-1) Abnormal [facility] GLUCOSE (AUTOMATED)2021-12-30 22:08:16* Test Item Value Reference Range Interpretation Comme nts POCT GLU (test code = 2628479529) 167 mg/dL 70-110 H Lab Interpretation (test cod e = 87987-4) Abnormal [facility] GLUCOSE (AUTOMATED)2021-12-30 16:50:40* Test Item Value Reference Range Interpretation Comme nts POCT GLU (test code = 6863114310) 154 mg/dL 70-110 H Lab Interpretation (test cod e = 10556-2) Abnormal [facility] GLUCOSE (AUTOMATED)2021-12-30 12:38:43* Test Item Value Reference Range Interpretation Comme nts POCT GLU (test code = 0726901693) 164 mg/dL 70-110 H Lab Interpretation (test cod e = 79333-9) Abnormal [facility] GLUCOSE (AUTOMATED)2021-12-30 02:14:58* Test Item Value Reference Range Interpretation Comme nts POCT GLU (test code = 3920760582) 220 mg/dL 70-110 H Lab Interpretation (test cod e = 01100-3) Abnormal [facility] GLUCOSE (AUTOMATED)2021-12-29 21:50:02* Test Item Value Reference Range Interpretation Comme nts POCT GLU (test code = 1790095700) 191 mg/dL 70-110 H Lab Interpretation (test cod e = 44669-7) Abnormal [facility] GLUCOSE (AUTOMATED)2021-12-29 20:15:01* Test Item Value Reference Range Interpretation Comme nts POCT GLU (test code = 2038628359) 163 mg/dL 70-110 H Lab Interpretation (test cod e = 91511-7) [facility]normal [facility]Tran[facility]horacic echo (TTE)2021-12-29 19:12:22* Test Item Value Reference Range Interpretation Comme nts Height (test code = 9796909003) in Weight (test code = 9087685550) lbs Systolic BP (test code = 4950489408) mmHg Diastolic BP (test code = 5847951126) mmHg Heart Rate (test code = 2125885813) bpm BSA (test code = 3974795341) 1.62 m2 Ao root annulus (test code = 8073817542) 2.45 cm Ao root diam (test code = 2498325689) 2.45 cm Aortic root (test code = 4715387477) 2.45 cm ACS (test code = 2506030593) 1.66 cm LA size (test code = 7246851094) 3.2 cm LVOT diameter (test code = 0088236720) 1.95 cm LVIDD (test code = 7457722699) 3.60 cm IVS (test code = 3796315812) 0.94 cm Interventricular Septum Diastolic Thickness by 2D (test code = 4738892) 0.94 cm LVPWD (test code = 4788602366) 0.80 cm PW (test code = 7996370230) 0.80 cm 0.6-1.1 EF(Teich) (test code = 8401270768) 52.80 % LVIDS (test code = 9460235364) 2.60 cm FS (test code = 7290833398) 27 % EF - 2D (test code = 86384728) 52.80 % LAV(MOD-sp4) (test code = 7349222423) 16.80 mL MV Peak E Jovany (test code = 1521328894) 46.1 cm/s E wave decelartion time (test code = 4106497046) 0.31 s MV Peak A Jovany (test code = 9635191443) 58.1 cm/s E/A ratio (test code = 2488950351) ratio MV E/e' septal (test code = 5022835971) 5.7 cm/s Tapse (test code = 0393060939) 1.60 cm LVOT stroke volume (test code = 5814539649) 52.10 cm3 LVOT peak jovany (test code = 9873299074) 110.6 cm/s LVOT mn grad (test code = 2541548182) mmHg AV LVOT peak gradient (test code = 2825642115) mmHg LVOT peak VTI (test code = 7467290629) 17.4 cm LV V1 mean (test code = 0026638443) 66.10 cm/s Aortic valve mean velocity (test code = 6448114359) 73.0 cm/s Ao peak jovany (test code = 1014293794) 124.6 cm/s Ao VTI (test code = 6538701522) 18.6 cm AV area by cont VTI (test code = 1572553233) 2.8 cm2 AV area peak jovany (test code = 6578487312) 2.7 cm2 Ao max PG (test code = 6133796879) 6.20 mm[Hg] AV peak gradient (test code = 7087010827) mmHg AV valve area (test code = 5691360303) 2.80 cm2 AV mean gradient (test code = 4916002632) mmHg Radiology Study observation (narrative) (test code = 60116-2) JUAN ALBERTO (test code = JUAN ALBERTO) [...] mL of Lumason ultrasound [facility]. [facility]21-12[facility]29 12:50:31* Test Item Value Reference Range Interpretation Comme nts POCT GLU (test code = 0586569047) 141 mg/dL 70-110 H Lab Interpretation (test cod e = 10182-9) [facility]normal [facility]rop[facility] [id number] 10:38:31* Test Item Value Reference Range Interpretation Comments TROPONIN I (test code = 7846200511) 0.003 ng/mL See_Comment [Automated message] The system [...] of biotin. Lab Interpretation (test code = 07481-3) Normal [facility] HospitalLIPID PANEL (25202)(TOTAL CHOLESTEROL, TRIGLYCERIDES, HDL)2021-12-29 05:56:47* Test Item Value Reference Range Interpretation Comme nts CHOL (test code = 6932299297) 168 mg/dL 120-200 HDL (test code = 0220260414) 102 mg/dL See_Comment [Automated [employer]] The system which generated this result transmitted reference range: >=40. The reference range was not used to interpret this result as normal/abnormal. HDLC RATIO (test code = 2971056482) See_Comment [Automated [employer]] The system which generated this result transmitted reference range: <=5.0. The reference range was not used to interpret this result as normal/abnormal. TRIG (test code = 3679310821) 55 mg/dL 30-170 LDL CHOL (test code = 44263-2) 55 mg/dL See_Comment [Automated [employer]] The system which generated this result transmitted reference range: <=160. The reference range was not used to interpret this result as normal/abnormal. VLDL (test code = 0961443398) 11 mg/dL 5-60 Lab Interpretation (test code = 55606-1) Normal [facility] HospitalThyroid Stimulating Hormone (TSH)2021-12-29 05:40:29* Test Item Value Reference Range Interpretation Comme nts TSH (test code = 3384843588) See_Comment Biotin has been reported to cause a negative bias, interpret results relative to patient's use of biotin. [Automated message] The system which generated this result transmitted reference range: 0.45 - 4.70 mIU/L. The reference range was not used to interpret this result as normal/abnormal. Lab Interpretation (test code = 24762-6) Normal [facility] HospitalTroponin [id number] 05:34:29* Test Item Value Reference Range Interpretation Comments TROPONIN I (test code = 7799875971) 0.006 ng/mL See_Comment [Automated message] The system [...] of biotin. Lab Interpretation (test code = 71713-6) Normal [facility] HospitalETHANOL2022-07-10 04:43:01 ALCOHOL<10mg/dL12/28/2021 11:43 PM [facility] Greater than or equal to 80 mg/dL. NOTE: Whole blood values are approximately 10% to 15% lower than serum and plasma.[facility] Glycosylated Hemoglobin (A1C)2021-12-29 01:51:44* Test Item Value Reference Range Interpretation Comme nts HGB A1C (test code = 4548-4) 6.5 % 4-5.7 H JUAN ALBERTO (test code = JUAN ALBERTO) Reference RangesNormal: <5.7%Prediabetes: 5.7 - 6.4%Diabetes: > 6.5% Lab Interpretation (test code = 60638-1) Abnormal [facility]TR[facility] [id number] 21:26:50* Test Item Value Reference Range Interpretation Comments TROPONIN I (test code = 7714610828) 0.002 ng/mL See_Comment [Automated message] The system [...] of biotin. Lab Interpretation (test code = 46231-3) Normal [facility] HospitalN-TERMINAL CDR-OJK5768-61-09 21:23:29* Test Item Value Reference Range Interpretation Comme nts NT-proBNP (test code = 9736868717) 41 pg/mL See_Comment [Automated message] The system which generated this result transmitted reference range: <=125. The reference range was not used to interpret this result as normal/abnormal. JUAN ALBERTO (test code = JUAN ALBERTO) Biotin has been reported to cause a negative bias, interpret results relative to patient's use of biotin. Lab Interpretation (test code = 93749-9) Normal [facility] HospitalAMMONIA, [id number] 21:20:38* Test Item Value Reference Range Interpretation Comme nts AMMONIA (test code = 5370033503) 9-33 L Slight hemolysis Lab Interpretation (test code = 89945-5) Abnormal [facility] METABOLIC PANEL (43969)2021-12-28 21:08:48* Test Item Value Reference Range Interpretation Comme nts NA (test code = 9367730997) 137 mmol/L 135-145 K (test code = 5247485406) 4.5 mmol/L 3.5-5 CL (test code = 4032726164) 97 mmol/L 98-108 L CO2 TOTAL (test code = 8466824354) 29 mmol/L 23-31 AGAP (test code = 9224756931) 2-16 BUN (test code = 2260894748) 10 mg/dL 7-23 GLUCOSE (test code = 5413247291) 188 mg/dL 70-110 H CREATININE (test code = 6914902135) 0.58 mg/dL 0.6-1.25 L TOTAL BILI (test code = 3249980224) 0.8 mg/dL 0.1-1.1 CALCIUM (test code = 8176028815) 10.5 mg/dL 8.6-10.6 T PROTEIN (test code = 1739959099) 7.6 g/dL 6.3-8.2 ALBUMIN (test code = 1505349102) 4.5 g/dL 3.5-5 ALK PHOS (test code = 1708159956) 107 U/L 34-122 ALTv (test code = 1742-6) 66 U/L 5-50 H AST(SGOT) (test code = 1461222261) 96 U/L 13-40 H eGFR (test code = 2791688844) mL/min/1.73m2 JUAN ALBERTO (test code = JUAN [...] imaging tests). Lab Interpretation (test code = 34591-2) Abnormal [facility] HospitalPROTHROMBIN TIME / [id number] 21:01:25* Test Item Value Reference Range Interpretation Comme nts PROTIME PATIENT (test code = 5964-2) See_Comment [Automated [employer]] The system which generated this result transmitted reference range: 12.0 - 14.7 Seconds. The reference range was not used to interpret this result as normal/abnormal. INR (test code = 6301-6) Normal INR <1.1; Warfarin Therapeutic range 2.0 to 3.0 or 2.5 to 3.5, depending upon the indications. Lab Interpretation (test code = 07573-9) Normal [facility] HospitalCBC WITH [id number] 20:54:03* Test Item Value Reference Range Interpretation Comme nts WBC (test code = 6690-2) See_Comment [Automated [employer]] The system which generated this result transmitted reference range: 4.20 - 10.70 10*3/?L. The reference range was not used to interpret this result as normal/abnormal. RBC (test code = 789-8) See_Comment [Automated [employer]] The system which generated this result transmitted [...] 34.2 g/dL 31.2-35 RDW-SD (test code = 20534-3) 47.8 fL 38.5-51.6 RDW-CV (test code = 788-0) 13.3 % 12.1-15.4 PLT (test code = 777-3) See_Comment [Automated [employer]] The system which generated this result transmitted reference range: 150 - 328 10*3/?L. The reference range was not used to interpret this result as normal/abnormal. MPV (test code = 21502-9) 8.6 fL 9.8-13 L NRBC/100 WBC (test code = 0878867808) See_Comment [Automated [employer]] The system which generated this result transmitted reference range: 0.0 - 10.0 /100 WBCs. The reference range was not used to interpret this result as normal/abnormal. NRBC x10^3 (test code = 9647490229) See_Comment [Automated [employer]] The system which generated this result transmitted reference range: 10*3/?L. The reference range was not used to interpret this result as normal/abnormal. GRAN MAT (NEUT) % (test code = 770-8) 64.1 % IMM GRAN % (test code = 4484129122) 0.40 % LYMPH % (test code = 736-9) 16.6 % MONO % (test code = 5905-5) 17.2 % EOS % (test code = 713-8) 0.2 % BASO % (test code = 706-2) 1.5 % GRAN MAT x10^3(ANC) (test code = 1207329658) 3.47 10*3/uL 1.99-6.95 IMM GRAN x10^3 (test code = 9204331240) 0-0.06 LYMPH x10^3 (test code = 731-0) 0.90 10*3/uL 1.09-3.23 L MONO x10^3 (test code = 742-7) 0.93 10*3/uL 0.36-1.02 EOS x10^3 (test code = 711-2) 0.06-0.53 L BASO x10^3 (test code = 704-7) 0.08 10*3/uL 0.01-0.09 Lab Interpretation (test code = 82465-7) [facility]normal [facility] HospitalEthanol Ncetg2192-01-87 21:08:00* Test Item Value Reference Range Interpretation Comme nts Ethanol (test code = ETOH) < 3 mg/dL The pharmacologi yudy response to blood alcohol levels mayvary from individual to individual. The fatal concentrationhas been reported to be >400mg/dL. Complete Blood Count Auto Rfbp3170-73-64 17:33:00* Test Item Value Reference Range Interpretation [...] = NRBCP) 0 % UA, Urinalysis Rflx Cult/Rejzj6409-35-80 17:33:00* Test Item Value Reference Range Interpretation Comme nts Color,Urine (test code = UCOL) Dark Yellow Yellow A Clarity,Urine (test code = UCLAR) Clear Clear Ph, Urine (test code = UPH) 6.5 5.0-9.0 N Specific [place],Urine (test code = USG) 1.015 1.005-1.030 N [...] = ULEU) Trace mg/dL Negative A Urine Zhwojxuqzmu5144-88-09 17:33:00* Test Item Value Reference Range Interpretation Comme nts RBC,Urine (test code = URBCUF) None Seen /HPF 0-2 WBC,Urine (test code = UWBCUF) 0-5 /HPF 0-5 Epithelial Cell,Urine (test code = UECUF) 0-5 /HPF 0-5 Casts,Urine (test code = UCASTUF) None Seen /LPF None Seen Bacteria,Urine (test code = UBACTUF) None Seen /hpf None Seen Drug Screen,Fsvns5408-13-00 17:33:00* Test Item Value Reference Range Interpretation [...] code = UPROP) Negative Negative Comprehensive Metabolic Almly1679-53-18 17:33:00* Test Item Value Reference Range Interpretation [...] 101 U/L 46-116 N Sars-CoV-2/FLU A/B RSV [id number] 17:31:00* Test Item Value Reference Range Interpretation [...] SARS-CoV-2 PCR Result:) Negative by RT-PCR Drug Screen,Dvyht1428-22-75 17:20:00* Test Item Value Reference Range Interpretation [...] UPROP) Negative Negative Complete Blood Count Auto Pepl9227-71-66 17:14:00* Test Item Value Reference Range Interpretation [...] code = NRBCP) 0 % Comprehensive Metabolic Ztyle9120-84-96 17:14:00* Test Item Value Reference Range Interpretation [...] = ALP) 207 U/L 46-116 H Ethanol Jnubg1168-92-43 17:14:00* Test Item Value Reference Range Interpretation Comme nts Ethanol (test code = ETOH) 192 mg/dL Complete Blood Count Auto Dohn2706-94-02 20:20:00* Test Item Value Reference Range Interpretation [...] code = NRBCP) 0 % Comprehensive Metabolic Hijvx6503-00-86 20:20:00* Test Item Value Reference Range Interpretation [...] = ALP) 189 U/L 46-116 H Ethanol Idyvm6570-83-50 20:20:00* Test Item Value Reference Range Interpretation Comme nts Ethanol (test code = ETOH) 10 mg/dL Sars-CoV-2/FLU A/B RSV AVE5144-20-89 20:20:00* Test Item Value Reference Range Interpretation [...] Negative by Nucleic Acid Amplification UA, Urinalysis Kzeypxkjtyh7675-43-92 20:20:00* Test Item Value Reference Range Interpretation Comme nts Color,Urine (test code = UCOL) Yellow Y Clarity,Urine (test code = UCLAR) Clear Clear PH,Urine (test code = UPH.XX) 7.0 5.5-8.5 Specific [place],Urine (test code = USG) 1.020 1.005-1.030 N [...] code = ULEU) Negative cells/uL Negative Drug Screen,Lhvop3573-54-51 20:20:00* Test Item Value Reference Range Interpretation [...] RESULT TO MICHAELA TRACY CT head/brain wo [facility] [address] [place] [address] Patient Name: Walt Velazquez Medical Record#: [id number] Address: Homeless City/State/Zip: [place] [address]: Vinnie Navarro MD Phone: Insurance: Self Pay /Age/Sex: 1970/50/M Admit/Reg Date: 09/17/[address]: Vinnie Navarro MD Location: [facility]/ PCP: Md KERWIN Flores Date of Service: 09/17/21 Order (s): CT head/brain wo con CPT Code: 44718 Report Number: [id number] Reason for Exam: Altered mental status Location [...] subcutaneous lesion at the midline frontal region (forehead),measuring 1 cm. Visual inspection. Electronically signed by: Karen Jay MD 09/17/2021 6:42 PM CDTWorkstation: [id number] Dictated By: Karen Sanders MD 09/17/211824 Signed By: Karen Sanders MD 09/17/211824 TD/TT: 09/17/211824 Tech: [id number] cc: JOSEE; GENESIS* Vinnie Navarro MD; Pcp-Md KERWIN Stiles"
[2023-07-19 06:17] LABS: Specific Gravity 1.029 (1.005-1.030); Urine Bacteria None Seen /HPF (<20); Urine Bilirubin NEGATIVE (Negative); Urine Blood Negative (Negative); Urine Clarity Clear (Clear); Urine Color Colorless (Yellow); Urine Glucose 4+ (Over) (Negative); Urine Protein NEGATIVE (Negative); Urine RBC <5 /HPF (None Seen); Urine Sperm Present (None Seen); Urine Urobilinogen Normal (Normal); Urine pH 5.5 (5.0-7.0)
[2023-07-19 06:42] LABS: Barbiturates NEGATIVE (NEGATIVE); Benzodiazepines NEGATIVE (NEGATIVE); Cocaine NEGATIVE (NEGATIVE); METHAMPHETAM POSITIVE (NEGATIVE); Methadone NEGATIVE (NEGATIVE); Opiates NEGATIVE (NEGATIVE); Phencyclidine NEGATIVE (NEGATIVE); THC Cannibis NEGATIVE (NEGATIVE)
[2023-07-19] MEDS ORDERED: NA CHLORIDE 0.9% 1,000 ML ONE (06:43)
[2023-07-19] MEDS ORDERED: LORazepam 2 MG/ML VIAL ONE (06:43)
--- NOTE | 2023-07-19 06:54 | EDPHYS ---
Physician Documentation [facility] Name: Walt Velazquez Age: 52 yrs Sex: Male : 1970 Arrival Date: 07/19/2023 Time: 05:33 Bed 8 Private MD: ED Physician Deandre Mckeon HPI: 07/19 06:00 This 52 yrs old Male presents to ER via EMS with complaints of chest pain and bridgette etoh abuse. 06:00 The patient or guardian reports chest pain that is located primarily in the substernal bridgette area. Onset: 2 hour(s) ago. The patient presents with a history of heart racing. Context: The symptoms occur with light activity. Modifying factors: The symptoms are aggravated by nothing. The symptoms are alleviated by nothing. Associated signs and symptoms: Pertinent positives: chest pain, nausea, vomiting. Historical: - Allergies: 05:42 Trazodone; vc1 - PMHx: 05:42 Alcoholism; Bipolar II; Hypertensive disorder; Parkinsons; Seizure; vc1 - Immunization history:: Client reports having NOT received the Covid vaccine. Flu vaccine is not up to date. - Social history:: Smoking status: Patient denies any tobacco usage or history of. - Family history:: not pertinent. ROS: 06:02 Constitutional: Negative for fever, chills, and weight loss, Eyes: Negative for injury, bridgette pain, redness, and discharge, ENT: Negative for injury, pain, and discharge, Neck: Negative for injury, pain, and swelling, Respiratory: Negative for shortness of breath, cough, wheezing, and pleuritic chest pain, Abdomen/GI: Negative for abdominal pain, nausea, vomiting, diarrhea, and constipation, Back: Negative for injury and pain, : Negative for injury, bleeding, discharge, and swelling, MS/Extremity: Negative for injury and deformity, Skin: Negative for injury, rash, and discoloration, Neuro: Negative for headache, weakness, numbness, tingling, and seizure, Psych: Negative for depression, anxiety, suicide ideation, homicidal ideation, and hallucinations, Allergy/Immunology: Negative for hives, rash, and allergies, Endocrine: Negative for neck swelling, polydipsia, polyuria, polyphagia, and marked weight changes, Hematologic/Lymphatic: Negative for swollen nodes, abnormal bleeding, and unusual bruising, 06:02 Cardiovascular: Positive for chest pain, palpitations, Exam: 06:02 Constitutional: This is a well developed, well nourished patient who is awake, alert, bridgette and in no acute distress. Head/Face: Normocephalic, atraumatic. Eyes: Pupils equal round and reactive to light, extra-ocular motions intact. Lids and lashes normal. Conjunctiva and sclera are non-icteric and not injected. Cornea within normal limits. Periorbital areas with no swelling, redness, or edema. ENT: Nares patent. No nasal discharge, no septal abnormalities noted. Tympanic membranes are normal and external auditory canals are clear. Oropharynx with no redness, swelling, or masses, exudates, or evidence of obstruction, uvula midline. Mucous membranes moist. Neck: Trachea midline, no thyromegaly or masses palpated, and no cervical lymphadenopathy. Supple, full range of motion without nuchal rigidity, or vertebral point tenderness. No Meningismus. Chest/axilla: Normal chest wall appearance and motion. Nontender with no deformity. No lesions are appreciated. Respiratory: Lungs have equal breath sounds bilaterally, clear to auscultation and percussion. No rales, rhonchi or wheezes noted. No increased work of breathing, no retractions or nasal flaring. Abdomen/GI: Soft, non-tender, with normal bowel sounds. No distension or tympany. No guarding or rebound. No evidence of tenderness throughout. Back: No spinal tenderness. No costovertebral tenderness. Full range of motion. Male : Normal genitalia with no discharge or lesions. Skin: Warm, dry with normal turgor. Normal color with no rashes, no lesions, and no evidence of cellulitis. MS/ Extremity: Pulses equal, no cyanosis. Neurovascular intact. Full, normal range of motion. Neuro: Awake and alert, GCS 15, oriented to person, place, time, and situation. Cranial nerves II-XII grossly intact. Motor strength 5/5 in all extremities. Sensory grossly intact. Cerebellar exam normal. Normal gait. Psych: Awake, alert, with orientation to person, place and time. Behavior, mood, and affect are within normal limits. 06:02 Cardiovascular: Rate: tachycardic, actual rate is 120 bpm, Rhythm: regular, Pulses: Pulses are 4+ in bilateral radial, brachial, femoral, popliteal, posterior tibial and and dorsalis pedis arteries.. Heart sounds: normal, normal S1and S2, no S3 or S4, no murmur, no rub, no gallop, Edema: is not appreciated, JVD: is not appreciated, 06:02 ECG was reviewed by the Attending Physician. Vital Signs: 05:38 BP 182 / 86; Pulse 120; Resp 19; Temp 98.6(O); Pulse Ox 100% on R/A; mc5 07:53 BP 174 / 86; Pulse 116; Resp 18; Pulse Ox 98% ; ph 08:05 BP 167 / 85; Pulse 100; Resp 20; Pulse Ox 98% ; bp MDM: 05:36 Patient medically screened. bridgette 06:04 Differential diagnosis: abnormal EKG, acute myocardial infarction, acute pericarditis, bridgette anxiety, chest wall pain, Cholelithiasis costochondritis, arrythmia, dehydration, esophagitis, hiatal hernia, pancreatitis, peptic ulcer disease, pericarditis, pleurisy, pneumonia, pulmonary embolus, thoracic aortic disection, unstable angina. HEART Score: ECG: Non specific repolarization disturbance / LBTB / PM (1), Age: > 45 and < 65 years (1), Risk Factors: > or = 3 Risk factors for atherosclerotic disease (2), [Hypercholesterolemia] [Hypertension] [Active Smoker] [+ Family HX] Troponin: < or = 1 x Normal Limit (0). The patient was given aspirin in the Emergency Department. ALEJANDRINA Risk Score: 1 - Three or more CAD risk factors, TOTAL SCORE = 1. Data reviewed: vital signs, nurses notes, EMS record, lab test result(s), EKG, radiologic studies, plain films. Consideration of Admission/Observation Patient was admitted/placed on observation. Escalation of care including admission/observation considered. I considered the following discharge prescriptions or medication management in the emergency department Medications were administered in the Emergency Department. See AUG. 07/19 05:37 Order name: Acetaminophen 07/19 05:37 Order name: Basic Metabolic Panel 07/19 05:37 Order name: CBC with Diff; Complete Time: 07:21 07/19 05:37 Order name: ETOH Level 07/19 05:37 Order name: Hepatic Function 07/19 05:37 Order name: PT-INR 07/19 05:37 Order name: Ptt, Activated 07/19 05:37 Order name: Salicylate [facility] 07/19 05:37 Order name: Urinalysis w/ reflexes; Complete Time: 07:21 [facility] 07/19 05:37 Order name: Urine Drug Screen; Complete Time: 07:21 [facility] 07/19 05:38 Order name: Troponin HS [facility] 07/19 06:02 Order name: Magnesium [facility] 07/19 06:02 Order name: BNP [facility] 07/19 08:01 Order name: Urinalysis w/ reflexes [facility] 07/19 08:01 Order name: CBC with Automated Diff [facility] 07/19 08:01 Order name: CBC with Automated Diff [facility] 07/19 08:01 Order name: Comprehensive Metabolic Panel [facility] 07/19 08:01 Order name: Comprehensive Metabolic Panel [facility] 07/19 08:01 Order name: Lipid Profile [facility] 07/19 08:01 Order name: Lipid Profile [facility] 07/19 08:01 Order name: Magnesium [facility] 07/19 08:01 Order name: Magnesium [facility] 07/19 08:01 Order name: Troponin High Sensitivity [facility] 07/19 08:01 Order name: Troponin High Sensitivity [facility] 07/19 08:01 Order name: Troponin High Sensitivity [facility] 07/19 08:01 Order name: Troponin High Sensitivity [facility] 07/19 06:52 Order name: Chest Single View XRAY [facility] 07/19 05:37 Order name: EKG; Complete Time: 05:38 [facility] 07/19 05:37 Order name: EKG - Nurse/Tech; Complete Time: 06:02 [facility] 07/19 05:37 Order name: IV Saline Lock; Complete Time: 07:09 [facility] 07/19 05:37 Order name: Labs collected and sent; Complete Time: 07:09 [facility] 07/19 05:37 Order name: Suicide Screening ([place]); Complete Time: 07:27 [facility] EC:02 Rate is 120 beats/min. Rhythm is regular. QRS [place] is Normal. CT interval is normal. [facility] QRS interval is normal. QT interval is normal. No Q waves. T waves are Normal. No ST changes noted. Clinical impression: Sinus tachycardia and No evidence of ischemia. Interpreted by me. Reviewed by me. Administered Medications: 06:57 Drug: Ativan IVP 2 mg IVP once Route: IVP; Site: right upper arm; nw1 06:58 Drug: NS 0.9% IV 1000 ml IV at 1 bolus Per protocol; 1000 mL bolus Route: IV; Rate: 1 nw1 bolus; Site: right upper arm; 07:54 Drug: Famotidine IVP 20 mg IVP once; dilute with 10 mL 0.9% NaCl; give over 2 minutes bp Route: IVP; Site: right antecubital; 07:54 Drug: Ondansetron IVP 4 mg IVP once; over 2 minutes Route: IVP; Site: right antecubital;bp 07:55 Drug: Thiamine IV 100 mg IV at bolus once Route: IV; Rate: bolus; Site: right bp antecubital; 08:11 Not Given (Patient Refused): morphineor iv 4 mg IVP once over 4 mins bp 08:12 Not Given (Patient Refused): aspirinchewable tablet 162 mg PO once bp 08:12 Not Given (Patient Refused): Banana Bag - (ns 0.9% 1000 ml, folic acid ivpb 1 mg, bp [id number] mg, multivitamin1 amp) IV at 125 ml/hr once Disposition Summary: 07/19/23 06:53 Hospitalization Ordered Notes: Hospitalization Status: Observation bridgette Provider: Finesse Mooney cha Location: Telemetry/MedSurg (observation) bridgette Condition: Fair bridgette Problem: new bridgette Symptoms: have improved bridgette Bed/Room Type: Standard bridgette Room Assignment: bridgette Diagnosis - Alcohol abuse with intoxication bridgette - Alcohol dependence bridgette - Chest pain, unspecified bridgette - Tachycardia, unspecified bridgette - Bipolar disorder, unspecified bridgette - Adverse effect of amphetamines bridgette - Abuse of other non-psychoactive substances bridgette Forms: - Medication Reconciliation Form bridgette - SBAR form bridgette - Leadership Thank You Letter bridgette Signatures: Dispatcher [employer] Deandre Gonzales MD MD cha Peltier, Brian, RN RN bp Niecy Roberto RN RN vc1 Brook Hernandez RN RN nw1
--- NOTE | 2023-07-19 06:54 | ER ---
Nurse's Notes [facility] Name: Walt Velazquez Age: 52 yrs Sex: Male : 1970 Arrival Date: 07/19/2023 Time: 05:33 Bed 8 Private MD: Diagnosis: Alcohol abuse with intoxication;Alcohol dependence;Chest pain, unspecified;Tachycardia, unspecified;Bipolar disorder, unspecified;Adverse effect of amphetamines;Abuse of other non-psychoactive substances Presentation: 07/19 05:39 Chief complaint: EMS states: having pain to leg because of missing toe, also vc1 complaining of chest pain. Coronavirus screen: Vaccine status: Patient reports being unvaccinated. Client denies travel out of the [place] in the last 14 days. At this time, the client does not indicate any symptoms associated with coronavirus-19. Ebola Screen: Patient negative for fever greater than or equal to 101.5 degrees Fahrenheit, and additional compatible Ebola Virus Disease symptoms Patient denies exposure to infectious person. Patient denies travel to an Ebola-affected area in the 21 days before illness onset. No symptoms or risks identified at this time. Initial Sepsis Screen: Does the patient meet any 2 criteria? No. Patient's initial sepsis screen is negative. Does the patient have a suspected source of infection? No. Patient's initial sepsis screen is negative. Risk Assessment: Do you want to hurt yourself or someone else? Patient reports no desire to harm self or others. Onset of symptoms was July 19, 2023. 05:39 Method Of Arrival: EMS: [facility] vc1 05:39 Acuity: LATASHA 3 vc1 Triage Assessment: 05:43 General: Appears in no apparent distress. uncomfortable, Behavior is calm, cooperative, vc1 appropriate for age. Pain:. 05:50 Pain: Complains of pain in chest, right leg and left leg Pain does not radiate. EENT: vc1 No deficits noted. No signs and/or symptoms were reported regarding the EENT system. Neuro: Level of Consciousness is awake, obeys commands, Oriented to person, place, situation. Cardiovascular: Chest pain is described as severe. Respiratory: Airway is patent Respiratory effort is even, unlabored, Respiratory pattern is regular, symmetrical. GI: No deficits noted. No signs and/or symptoms were reported involving the gastrointestinal system. : No deficits noted. No signs and/or symptoms were reported regarding the genitourinary system. Derm: No deficits noted. No signs and/or symptoms reported regarding the dermatologic system. Musculoskeletal: No deficits noted. No signs and/or symptoms reported regarding the musculoskeletal system. Historical: - Allergies: 05:42 Trazodone; vc1 - PMHx: 05:42 Alcoholism; Bipolar II; Hypertensive disorder; Parkinsons; Seizure; vc1 - Immunization history:: Client reports having NOT received the Covid vaccine. Flu vaccine is not up to date. - Social history:: Smoking status: Patient denies any tobacco usage or history of. - Family history:: not pertinent. Screenin:[address] [facility] ED Fall Risk Assessment (Adult) History of falling in the last 3 months, vc1 including since admission No falls in past 3 months (0 pts) Confusion or Disorientation No (0 pts) Intoxicated or Sedated Yes (3 pts) Impaired Gait No (0 pts) Mobility Assist Device Used No (0 pt) Altered Elimination No (0 pt) Score/Fall Risk Level 0 - 2 = Low Risk Oriented to surroundings, Maintained a safe environment, Educated pt \\T\\ family on fall prevention, incl call for assistance when getting out of bed. Abuse screen: Denies threats or abuse. Nutritional screening: No deficits noted. Tuberculosis screening: No symptoms or risk factors identified. Assessment: 07:00 Reassessment: Unable to get a proper assessment completed due to patient's mentation. nw1 Pt able to recall EMS telling him that he was found near a gas station on the floor. Pt unable to say what happened prior to being awakened by EMS. 07:30 Reassessment: ADMIT IN PROCESS. bp 08:05 Reassessment: PT DECLINING ADMIT. URGED TO REMAIN BUT DECLINED. AOx4, AMBULATORY WITH bp STEADY GAIT. Psych: 07:10 [place] Suicide Severity Screening: In the past month, have you wished you were nw1 or wished you could go to sleep and not wake up? Patient responds "No." "In the past month, have you actually had any thoughts of killing yourself?" Patient responds "no." "In your lifetime, have you ever done anything, started to do anything, or prepared to do anything to end your life?" Patient responds "no.". Subjective: Patient's mood is Delusions are denied, Hallucinations are denied Having thoughts of suicide. Denies suicidal plan. Objective: Patient is cooperative, Speech is normal, Affect is appropriate, Patient has mutilated themselves by denies. Interventions: Patient placed in hospital gown. Urine collected and sent for urine drug test. Safety Checks: Personal items have not been removed. Door is open. Visitors are present. Patient uses hourly. daily. Commitment: none. Vital Signs: 05:38 BP 182 / 86; Pulse 120; Resp 19; Temp 98.6(O); Pulse Ox 100% on R/A; mc5 07:53 BP 174 / 86; Pulse 116; Resp 18; Pulse Ox 98% ; ph 08:05 BP 167 / 85; Pulse 100; Resp 20; Pulse Ox 98% ; bp ED Course: 05:35 Patient arrived in ED. vc1 05:36 Deandre Mckeon MD is Attending Physician. bridgette 05:42 Triage completed. vc1 05:42 Arm band placed on right wrist. vc1 06:41 Brook Hernandez, ROBERTO is Primary Nurse. nw1 06:53 Finesse Mooney MD is Hospitalizing Provider. bridgette 07:00 Inserted saline lock: 18 gauge in right upper arm, using aseptic technique. Blood nw1 collected. 07:09 BNP Sent. nw1 07:09 Magnesium Sent. nw1 07:09 Troponin HS Sent. nw1 07:09 Acetaminophen Sent. nw1 07:09 Basic Metabolic Panel Sent. nw1 07:09 CBC with Diff Sent. nw1 07:09 ETOH Level Sent. nw1 07:09 Hepatic Function Sent. nw1 07:09 PT-INR Sent. nw1 07:09 Ptt, Activated Sent. nw1 07:09 Salicylate Sent. nw1 07:20 Chest Single View XRAY In Process Unspecified. EDMS 07:20 James Cantu, RN is Primary Nurse. bp 07:53 Patient has correct armband on for positive identification. Bed in low position. Call light in reach. Side rails up X 1. 07:53 No provider procedures requiring assistance completed. Patient admitted, IV remains in ph place. Administered Medications: 06:57 Drug: Ativan IVP 2 mg IVP once Route: IVP; Site: right upper arm; nw1 06:58 Drug: NS 0.9% IV 1000 ml IV at 1 bolus Per protocol; 1000 mL bolus Route: IV; Rate: 1 nw1 bolus; Site: right upper arm; 07:54 Drug: Famotidine IVP 20 mg IVP once; dilute with 10 mL 0.9% NaCl; give over 2 minutes bp Route: IVP; Site: right antecubital; 07:54 Drug: Ondansetron IVP 4 mg IVP once; over 2 minutes Route: IVP; Site: right antecubital;bp 07:55 Drug: Thiamine IV 100 mg IV at bolus once Route: IV; Rate: bolus; Site: right bp antecubital; 08:11 Not Given (Patient Refused): morphineor iv 4 mg IVP once over 4 mins bp 08:12 Not Given (Patient Refused): aspirinchewable tablet 162 mg PO once bp 08:12 Not Given (Patient Refused): Banana Bag - (ns 0.9% 1000 ml, folic acid ivpb 1 mg, bp [id number] mg, multivitamin1 amp) IV at 125 ml/hr once Medication: 05:51 VIS not applicable for this client. vc1 Outcome: 06:53 Decision to Hospitalize by Provider. [facility] 08:25 Patient left the ED. bp Signatures: Dispatcher [employer] EDMS Deandre Mckeon MD MD cha Hall, Patricia, RN RN James Canut RN RN Niecy Roberto RN RN vc1 [facility] [place] Hernandez RN RN nw1
[2023-07-19 07:12] LABS: Absolute Lymphocytes (CBC) 1.2 K/uL (0.7-4.9); Hematocrit 43.2 % (39.6-49.0); Lymphocytes % 13.5 % (15.3-44.8); MCV 92.3 fL (80-100); MPV 6.3 fL (7.6-11.3); Platelets 330 thou/uL (152-406); RBC Red Blood Cell Count 4.68 M/uL (4.33-5.43)
[2023-07-19 07:26] LABS: Protime INR 0.97
--- NOTE | 2023-07-19 07:27 | RAD REPORT ---
EXAM DESCRIPTION: RAD - Chest Single View - 07/19/2023 7:18 am CLINICAL HISTORY: Cough;Chest pain COMPARISON: Chest Single View dated 04/17/2023; Chest Single View dated 08/04/2022; Chest Single View dated 06/13/2022; Chest Single View dated 06/13/2022 FINDINGS: Lines: None. Lungs: No evidence of edema or pneumonia. Pleural: No significant pleural effusions or pneumothorax. Cardiac: The heart size is within normal limits. Mediastinum: Within normal limits. Bones: No acute fractures. Other: None IMPRESSION: No acute cardiopulmonary disease.
[2023-07-19 07:34] LABS: ALT/SGPT 22 U/L (16-61); Albumin 3.8 g/dL (3.4-5.0); Alkaline Phosphatase 110 U/L (45-117); BUN Blood Urea Nitrogen 6 mg/dL (7-18); Bicarbonate 24 mEq/L (21-32); Bilirubin Total 0.4 mg/dL (0.2-1.0); Glomerular Filtration Rate 110 ml/min (=/>90); Glucose Level 223 mg/dL (74-106); Protein, Total 7.9 g/dL (6.4-8.2); Sodium Level 131 mEq/L (136-145); Troponin High Sensitivity 13.4 pg/mL (<58.9)
[2023-07-19 07:35] LABS: AST/SGOT 30 U/L (15-37); Bilirubin Direct < 0.1 mg/dL (0-0.2); Bilirubin Indirect, Calculated ND mg/dL (0.2-0.8); Potassium 3.9 mEq/L (3.5-5.1)
[2023-07-19] MEDS ORDERED: FAMOTIDINE 20 MG/2 ML VIAL IV ONE (07:42)
[2023-07-19] MEDS ORDERED: THIAMINE 200 MG/2 ML INJ ONE (07:42)
[2023-07-19] MEDS ORDERED: ONDANSETRON 4 MG/2 ML VIAL ONE (07:42)
[2023-07-19] MEDS ORDERED: ACETAMINOPHEN 500 MG TAB PO PRN (07:56)
[2023-07-19] MEDS ORDERED: ONDANSETRON 4 MG/2 ML VIAL IV PRN (07:56)
[2023-07-19] MEDS ORDERED: FOLIC ACID 1 MG, MULTIVITAMINS INJ 10 ML, THIAMINE HCL 100 MG in NA CHLORIDE 0.9% 1,000 ML IV ONE (08:00)
[2023-07-19] MEDS ORDERED: LORazepam 2 MG/ML VIAL IV PRN (08:01)
--- NOTE | 2023-07-19 08:09 | P.HP ---
Certification for Inpatient Patient admitted to: Observation Practitioner: I am a practitioner with admitting privileges, knowledge of patient current condition, hospital course, and medical plan of care. Services: Services provided to patient in accordance with Admission requirements found in Title 42 Section 412.3 of the Code of Federal Regulations Patient History Date of Service: 07/19/23 History of Present Illness: 49-year-old male with a past medical history of bipolar, hypertension, alcohol abuse, seizure disorder, Parkinson's, presents to the emergency room with chest pain. He reported he was passed out outside and EMS brought him to the emergency room. Had elevated heart rate of sinus tachycardia 120. UDS was positive for methamphetamines. He denies chest pain radiation, nausea vomiting, plan to admit for chest pain rule out [place],Rate is 120 beats/min. Rhythm is regular. QRS [place] is Normal. [place] interval is normal. QRS interval is normal. QT interval is normal. No Q waves. T waves are Normal. No ST changes noted. Clinical impression: Sinus tachycardia and No evidence of ischemia troponins normal at 13.4, UDS positive for methamphetamine Allergies trazodone Allergy (Verified 04/24/23 08:05) UNK Home Medications: Metoprolol Tartrate [Lopressor*] 25 mg PO BID #60 tab 07/05/16 Multivit,Ther Iron,Ca,FA & Min [Centrum Tablet*] 1 tab PO DAILY #90 tab 07/05/16 Pantoprazole [Protonix Tab*] 40 mg PO DAILYAC #30 tab 07/05/16 Phenytoin Sodium Extended [Dilantin] 100 mg PO TID #90 capsule 07/05/16 Thiamine HCl [Vitamin B-1*] 100 mg PO DAILY #30 tablet 07/05/16 chlordiazePOXIDE HCl [Librium*] 25 mg PO SEECOM #70 cap 07/05/16 risperiDONE [Risperdal 1 mg tab*] 2 mg PO DAILY #30 tab 07/05/16 - Past Medical/Surgical History Diabetic: No -: Bipolar disorder -: GERD -: Seizure disorder from previous head trauma -: Alcohol abuse -: Hypertension -: Hypertension -: GERD -: 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 He does not work - Social History Alcohol use: Yes CD- Drugs: Yes Caffeine use: Yes Review of Systems per HPI Physical Examination - Physical Exam General: Alert, In no apparent distress, Oriented x3 HEENT: Atraumatic, Normocephalic Neck: Supple, 2+ carotid pulse no bruit Respiratory: Clear to auscultation bilaterally, Normal air movement Cardiovascular: No edema, Normal pulses Gastrointestinal: Normal bowel sounds, Soft and benign Musculoskeletal: No clubbing, No swelling Integumentary: No rashes, No breakdown Neurological: Normal gait, Normal speech - Studies Laboratory Data (last 24 hrs) 07/19/23 07/19/23 07/19/23 06:56 06:56 06:56 WBC 9.10 Hgb 14.6 Hct 43.2 Plt Count 330 PT 10.7 INR 0.97 APTT 29.3 Sodium 131 L Potassium 3.9 BUN 6 L Creatinine 0.71 Glucose 223 H Total Bilirubin 0.4 AST 30 ALT 22 Alkaline Phosphatase 110 Assessment and Plan - Plan Assessment plan Chest pain rule out [place] Telemetry, trend troponins, He reported he was passed out outside and EMS brought him to the emergency room. Had elevated heart rate of sinus tachycardia 120. UDS was positive for methamphetamines Rate is 120 beats/min. Rhythm is regular. QRS [place] is Normal. [place] interval is normal. QRS interval is normal. QT interval is normal. No Q waves. T waves are Normal. No ST changes noted. Clinical impression: Sinus tachycardia and No evidence of ischemia troponins normal at 13.4, UDS positive for methamphetamine Lipid panel, aspirin, resume home metoprolol, antilipid, as needed analgesia Alcohol abuse CIWA protocol, as needed Ativan, Sinus tachycardia likely secondary to methamphetamine use Polysubstance abuse Urine drug screen positive for methamphetamines History bipolar Essential hypertension History seizure disorder History Parkinson's Resume appropriate home meds Cardiac diet Full code DVT SCDs Discharge Plan: Home Plan to discharge in: 24 Hours - Advance Directives Does patient have a Living Will: No Does patient have a Durable POA for Healthcare: No - Code Status/Comfort Care Code Status: Full Code Critical Care: No Time Spent Managing Pts Care (In Minutes): 55
[2023-07-19] MEDS ORDERED: MORPHINE 2 MG/ML SYR IV PRN (08:11)
[2023-07-19] MEDS ORDERED: ASPIRIN 325 MG TAB PO SCH (09:00)
[2023-07-19] MEDS ORDERED: PHENYTOIN ER 100 MG CAP PO SCH (09:00)
[2023-07-19] MEDS ORDERED: METOPROLOL TAR 25 MG TAB PO SCH (09:00)
[2023-07-19 11:08] VITALS: BP 167/85; TEMP 98.6; O2SAT 98
[2023-07-19] MEDS ORDERED: chlordiazePOXIDE HCl 25 MG CAP PO SCH (12:00)
[2023-07-20] MEDS ORDERED: PANTOPRAZOLE 40MG TABLET PO SCH (07:30)
[2023-07-20] MEDS ORDERED: MULTIVITAMIN TAB PO SCH (09:00)
[2023-07-20] MEDS ORDERED: THIAMINE HCL 100 MG TABLET PO SCH (09:00)
== END 2023-07-19 08:30 | disposition left against medical advice (07) ==
LOC: ER 05:33 → ERHOLD 07:54
PROVIDERS: ADMIT Hospitalist; ATTEND Hospitalist
DX: R07.9 Chest pain, unspecified (principal); F15.90 Other stimulant use, unspecified, uncomplicated; R00.0 Tachycardia, unspecified; I10 Essential (primary) hypertension; R56.9 Unspecified convulsions; G20.A1 Parkinson's disease without dyskinesia, without mention of fluctuations; F31.9 Bipolar disorder, unspecified; F10.10 Alcohol abuse, uncomplicated; Z88.8 Allergy status to other drugs, medicaments and biological substances
CPT/HCPCS: 36415; 71045; 80048; 80076; 80143; 80179; 80307; 81001; 82077; 84484; 85025; 85610; 85730; 93005; G0378; J2405; J3411; J7030

== ENCOUNTER → 2023-07-23 | Emergency (ER) | payer SELFPAY ==
[~2023-07-23] MED LIST changes: -ASPIRIN 81 MG CHEWABLE TABLET ONE; +IBUPROFEN 200 MG TAB PO ONE; -LORazepam 2 MG/ML VIAL ONE
--- OUTSIDE RECORDS SUMMARY | 2023-07-23 11:11 | XMS REPORT | Continuity of Care Document ---
Author Name Unknown Address [address] [facility] [place] [address] [facility] Address [address] [place] [address] Care Team Providers Care Unhairing Inspector Name Role Phone Pcp-None Primary Care Physician Unavailab HEMANT Adame Attending Clinician Unavailable Hemant Klein MD Attending Clinician [phone] Pan Pinto Attending Clinician Unavailab JESSICA Gallardo Attending Clinician Unavailable Rayray Driscoll MD Attending Clinician [phone] Jessica Prado MD Attending Clinician [phone] Oswald Murphy MD Attending Clinician [phone] DIYA CHOWDHURY Attending Clinician Unavailab Diya Mackey DO Attending Clinician [phone] Fidel Cuellar Attending Clinician Unavailable DIRK YARBROUGH Attending Clinician Unavailable Leticia Rowland Attending Clinician [phone] Dirk Yarbrough MD Attending Clinician [phone] Faye Portillo LVN Attending Clinician [phone] Pia Reddy Attending Clinician [phone] Vinnie Navarro Attending Clinician Unavailable OSWALD MURPHY Admitting Clinician Unavailable Oswald Murphy MD Admitting Clinician [phone] DIYA CHOWDHURY Admitting Clinician UnavailLeticia Gaytan Admitting Clinician Unavailable JESSICA PRADO Admitting Clinician Unavailable Jessica Prado MD Admitting Clinician [phone] Payers Payer Name Policy Type Policy Number Effective Date Expirati on Date Source [facility] [id number] 2022-08-09 00:00:00 Problems Condition Name Condition Details Condition Category Status Onset Date Resolution Date Last Treatment Date Treating Clinician Comments Source Alcohol withdrawal syndrome with complicati on Alcohol withdrawal syndrome with complicati on Disease Active 08-10 00:00: 00 [facility] Type 2 diabetes mellitus with other specified complicati on Type 2 diabetes mellitus with other specified complicati on Disease Active 12-29 00:00: 00 [facility] Dyslipidem ia Dyslipidem ia Disease Active 12-29 00:00: 00 [facility] Chest pain, unspecifie d type Chest pain, unspecifie d type Disease Active 12-28 00:00: 00 [facility] Priapism Priapism Disease Active 2013-06 1-06 00:00: 00 [facility] Allergies, Adverse Reactions, Alerts Allergy Name Allergy Type Status Severity Reaction(s) Onset Date Inactive Date Treating Clinician Comments Source No Known Drug Allergie s DA Active U 4-25 00:00: 00 [facility] No Known Drug Allergie s DA Active U 0 9-16 00:00: 00 [facility] No Known Drug Allergie s DA Active U 0 3-29 00:00: 00 [facility] No Known Drug Allergie s DA Active U 2019-06 2-16 00:00: 00 [facility] No Known Drug Allergie s DA Active U 2019-06 2-15 00:00: 00 [facility] No Known Drug Allergie s DA Active U 2019-06 07-24 00:00: 00 [facility] Trazodon e Propensi ty to adverse reaction s Active Other - See comments 10-06 00:00: 00 [facility] TRAZODON E DRUG INGREDI Active Other-Cmnt 10-06 00:00: 00 [facility] Social History Social Habit Start Date Stop Date Quantity Comments Source History of tobacco use Cigarette Smoker [facility] Exposure to SARS-CoV-2 (event) 2022-11-01 00:00:00 2022-11-11 13:57:00 Not sure [facility] Tobacco use and exposure 2022-08-10 00:00:00 2022-08-10 00:00:00 User of smokeless tobacco [facility] Alcohol intake 2022-08-10 00:00:00 2022-08-10 00:00:00 Current drinker of alcohol (finding) [facility] Tobacco Comment 2022-08-10 00:00:00 2022-08-10 00:00:00 1/2 a pack a day [facility] Sex Ass[birth year] At 1970 00:00:00 1970 00:00:00 [facility] Smoking Status Start Date Stop Date Source Smokes tobacco daily 2022-08-10 00:00:00 [facility] Medications Ordered Medication Name Filled Medication Name Start Date Stop Date Current Medication? Ordering Clinician Indication Dosage Frequency Signature (SIG) Comments Components Source NaCl 0.9% (NS) bolus infusion 1,000 mL 11-11 19:45: 00 11-11 20:23 :00 No 1000mL at 999 mL/hr, 1,000 mL, IV Piggyback, ONCE, 1 dose, On Thu11/11/22 at 1445, STAT [facility] multivitami n tablet 1 tablet 08-12 15:00: 00 Yes 1{tbl} 1 tablet, Oral, DAILY, First dose on Thu08/12/22 at 0900, Until Discontinu ed, Routine [facility] foLIC acid (FOLATE) tablet 1 mg 08-12 15:00: 00 Yes 1mg 1 mg, Oral, DAILY, First dose on Thu08/12/22 at 0900, Until Discontinu ed, Routine [facility] foLIC acid 1 mg tablet 08-12 00:00: 00 09-12 04:59 :00 No [id number] 1mg Take 1 tablet by mouth in the morning for 30 days. [facility] oxazepam (SERAX) capsule 15 mg 08-11 [...] Thu08/13/22 at 0600, Routine [Order 2 End] [facility] thiamine (VITAMIN B1) tablet 100 mg 08-11 16:15: 00 Yes 100mg 100 mg, Oral, DAILY, First dose on Thu08/11/22 at 1015, Until Discontinu ed, Routine [facility] enoxaparin (LOVENOX) injection 40 mg 08-10 23:00: 00 Yes 40mg 40 mg, Subcutaneo us, DAILY, First dose on Thu08/10/22 at 1700, Until Discontinu ed, Routine [facility] NaCl 0.9% (NS) IV infusion 1,000 mL 08-10 15:00: 00 Yes 1000mL at 125 mL/hr, IV Infusion, CONTINUOUS , Starting on Thu08/10/22 at 0900, Until Discontinu ed, Routine [facility] foLIC acid (FOLATE) 5 mg in NaCl 0.9% (NS) piggyback 08-10 15:00: 00 08-11 16:14 :47 No 5mg IV Piggyback, DAILY, First dose on Thu08/10/22 at 0900, Until Discontinu ed, 50 mL [facility] thiamine (VITAMIN B1) 100 mg in NaCl 0.9% (NS) piggyback 08-10 15:00: 00 08-10 16:08 :00 No 100mg IV Piggyback, DAILY, 1 dose, First dose on Thu08/10/22 at 0900, 50 mL [facility] LORazepam (ATIVAN) injection 2 mg 08-10 14:52: 57 Yes 2mg 2 mg, Slow IV Push, Q4HPRN, Starting on Thu08/10/22 at 0852, Until Discontinu ed, Routine, Seizures, Agitation, Anxiety [facility] Sliding Scale Insulin-Reg ular + Fsbg Testing 08-10 13:30: 00 Yes Subcutaneo us, AC+HS, First dose on Thu08/10/22 at 0730, Until Discontinu ed, Routine [facility] oxazepam (SERAX) capsule 15 mg 08-10 12:08: 05 Yes 15mg 15 mg, Oral, Q4HPRN, Starting on 08/10/22 at 0608, Until Discontinu ed, Routine, Only while awake for DBP equal to or greater than 100, HR equal to or greater than 100. [facility] dextrose 10% (D10W) bolus infusion 250 [...] unable to swallow or has mental changes. [facility] ondansetron (ZOFRAN (PF)) injection 4 mg 08-10 12:02: 53 Yes 4mg 4 mg, Slow IV Push, Q6HPRN, Starting on Thu08/10/22 at 0602, Until Discontinu ed, Routine, Nausea and Vomiting (N/V) [facility] ibuprofen (MOTRIN IB) tablet 200 mg 08-10 12:02: 45 Yes 200mg 200 mg, Oral, Q6HPRN, Starting on Thu08/10/22 at 0602, Until Discontinu ed, Routine, Pain (scale 1-3) [facility] NaCl 0.9% (NS) bolus infusion 1,000 mL 08-10 10:15: 00 08-10 13:00 :00 No 1000mL at 999 mL/hr, 1,000 mL, IV Infusion, ONCE, 1 dose, On Thu08/10/22 at 0415, STAT [facility] LORazepam (ATIVAN) injection 0.5 mg 08-10 09:15: 00 08-10 09:19 :00 No .5mg 0.5 mg, Slow IV Push, ONCE, 1 dose, On Thu08/10/22 at 0315, STAT [facility] LORazepam (ATIVAN) injection 1 mg 08-10 08:00: 00 08-10 07:05 :00 No 1mg 1 mg, Slow IV Push, ONCE NOW, 1 dose, On Thu08/10/22 at 0200, STAT [facility] thiamine (VITAMIN B1) injection 100 mg 08-10 06:45: 00 08-10 06:52 :00 No 100mg 100 mg, Intravenou s, ONCE, 1 dose, On 08/10/22 at 0045, JACIEL [facility] LORazepam (ATIVAN) injection 1 mg 08-10 05:15: 00 08-10 05:22 :00 No 1mg 1 mg, Slow IV Push, ONCE, 1 dose, On 08/09/22 at 2315, STAT [facility] ketorolac (TORADOL) injection 15 mg 2021-06 16:00: 00 04-06 14:50 :00 No 15mg 15 mg, Slow IV Push, ONCE, 1 dose, On 04/06/22 at 1100, [facility] ondansetron (ZOFRAN (PF)) injection 4 mg 2021-06 15:45: 00 04-06 14:50 :00 No 4mg 4 mg, Slow IV Push, ONCE, 1 dose, On 04/06/22 at 1045, [facility] oxazepam (SERAX) capsule 15 mg 12-31 06:28: 17 01-01 06:29 :00 No 15mg 15 mg, Oral, Q12H TAPER, 2 doses, First dose on Thu12/31/21 at 0130, Last dose on Thu12/31/21 at 1330, Routine [facility] multivitami n tablet 12-31 00:00: 00 Yes [id number] 1{tbl} Take 1 tablet by mouth in the morning. [facility] thiamine 100 mg tablet 12-31 00:00: 00 Yes [id number] 100mg Take 1 tablet by mouth in the morning. [facility] aspirin 81 mg chewable tablet 12-31 00:00: 00 Yes [id number] 81mg Take 1 tablet by mouth in the morning. [facility] multivitami n tablet 12-31 00:00: 00 Yes [id number] 1{tbl} Take 1 tablet by mouth in the morning. [facility] thiamine 100 mg tablet 12-31 00:00: 00 Yes [id number] 100mg Take 1 tablet by mouth in the morning. [facility] aspirin 81 mg chewable tablet 0 12-31 00:00: 00 Yes [id number] 81mg Take 1 tablet by mouth in the morning. [facility] multivitami n tablet 0 12-31 00:00: 00 Yes [id number] 1{tbl} Take 1 tablet by mouth in the morning. [facility] thiamine 100 mg tablet 12-31 00:00: 00 Yes [id number] 100mg Take 1 tablet by mouth in the morning. [facility] aspirin 81 mg chewable tablet 12-31 00:00: 00 Yes [id number] 81mg Take 1 tablet by mouth in the morning. [facility] multivitami n tablet 12-31 00:00: 00 Yes [id number] 1{tbl} Take 1 tablet by mouth in the morning. [facility] thiamine 100 mg tablet 12-31 00:00: 00 Yes [id number] 100mg Take 1 tablet by mouth in the morning. [facility] aspirin 81 mg chewable tablet 12-31 00:00: 00 Yes [id number] 81mg Take 1 tablet by mouth in the morning. [facility] multivitami n tablet 12-31 00:00: 00 Yes [id number] 1{tbl} Take 1 tablet by mouth in the morning. [facility] thiamine 100 mg tablet 12-31 00:00: 00 Yes [id number] 100mg Take 1 tablet by mouth in the morning. [facility] aspirin 81 mg chewable tablet 12-31 00:00: 00 Yes [id number] 81mg Take 1 tablet by mouth in the morning. [facility] multivitami n tablet 2021-0 12-31 00:00: 00 Yes [id number] 1{tbl} Take 1 tablet by mouth in the morning. [facility] thiamine 100 mg tablet 12-31 00:00: 00 Yes [id number] 100mg Take 1 tablet by mouth in the morning. [facility] aspirin 81 mg chewable tablet 12-31 00:00: 00 Yes [id number] 81mg Take 1 tablet by mouth in the morning. [facility] foLIC acid 1 mg tablet 12-31 00:00: 00 01-31 04:59 :00 No [id number] 1mg Take 1 tablet by mouth in the morning for 30 days. [facility] foLIC acid 1 mg tablet 12-31 00:00: 00 01-31 04:59 :00 No [id number] 1mg Take 1 tablet by mouth in the morning for 30 days. [facility] foLIC acid 1 mg tablet 12-31 00:00: 00 01-31 04:59 :00 No [id number] 1mg Take 1 tablet by mouth in the morning for 30 days. [facility] metFORMIN 500 mg tablet 12-30 00:00: 00 Yes [id number] 500mg Take 1 tablet by mouth in the morning and 1 tablet in the evening. Take with meals. [facility] metFORMIN 500 mg tablet 12-30 00:00: 00 Yes [id number] 500mg Take 1 tablet by mouth in the morning and 1 tablet in the evening. Take with meals. [facility] metFORMIN 500 mg tablet 12-30 00:00: 00 Yes [id number] 500mg Take 1 tablet by mouth in the morning and 1 tablet in the evening. Take with meals. [facility] metFORMIN 500 mg tablet 12-30 00:00: 00 Yes [id number] 500mg Take 1 tablet by mouth in the morning and 1 tablet in the evening. Take with meals. [facility] metFORMIN 500 mg tablet 12-30 00:00: 00 Yes [id number] 500mg Take 1 tablet by mouth in the morning and 1 tablet in the evening. Take with meals. [facility] metFORMIN 500 mg tablet 12-30 00:00: 00 Yes [id number] 500mg Take 1 tablet by mouth in the morning and 1 tablet in the evening. Take with meals. [facility] aspirin chewable tablet 81 mg 12-29 14:00: 00 Yes 81mg 81 mg, Oral, DAILY, First dose on 12/29/21 at 0900, Until Discontinu ed, Routine [facility] sulfur hexafluorid e microsphr (LUMASON) injection 5 mL 12-29 13:45: 00 12-29 13:45 :00 No [id number] 5mL 5 mL, Intravenou s, ONCE, 1 dose, On 12/29/21 at 0845, Routine
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 : STEFANIE GORMAN [facility] enoxaparin (LOVENOX) injection 40 mg 12-29 13:00: 00 Yes 40mg 40 mg, Subcutaneo us, Q24H, First dose on 12/29/21 at 0800, Until Discontinu ed, Routine [facility] Sliding Scale Insulin - Lispro (HumaLOG) + Fsbg Testing 12-29 13:00: 00 Yes Subcutaneo us, TID MEALS+HS, First dose on 12/29/21 at 0800, Until Discontinu ed, Routine [facility] diazePAM (VALIUM) injection 10 mg 12-29 05:30: 00 12-29 04:40 :00 No 10mg 10 mg, Intravenou s, ONCE, 1 dose, On 12/29/21 at 0030, Routine [facility] diazePAM (VALIUM) injection 10 mg 12-29 04:15: 00 12-29 03:17 :00 No 10mg 10 mg, Intravenou s, ONCE, 1 dose, On 12/28/21 at 2315, Routine [facility] diazePAM (VALIUM) injection 5 mg 12-29 03:45: 01 Yes 5mg 5 mg, Intravenou s, QIDPRN, Starting on 12/28/21 at 2245, Until Discontinu ed, Routine, Seizures, Agitation [facility] foLIC acid (FOLATE) tablet 1 mg 12-29 03:45: 00 Yes 1mg 1 mg, Oral, DAILY, First dose on 12/28/21 at 2245, Until Discontinu ed, Routine [facility] thiamine (VITAMIN B1) tablet 100 mg 12-29 03:45: 00 Yes 100mg 100 mg, Oral, DAILY, First dose (after last modificati on) on 12/28/21 at 2245, Until Discontinu ed, Routine [facility] glucagon (GLUCAGEN DIAGNOSTIC KIT) injection 1 mg 12-29 03:42: 19 Yes 1mg 1 mg, Intramuscu lar, PRN, Starting on 12/28/21 at 2242, Until Discontinu ed, JACIEL, Blood Glucose < or = 70 mg/dL and patient is unable to swallow or has mental changes. [facility] dextrose 10% (D10W) bolus infusion 250 [...] blood glucose is < 80 mg/dL, repeat.
[facility] LORazepam (ATIVAN) injection 1 mg 12-29 03:30: 00 12-29 02:32 :00 No 1mg 1 mg, Intravenou s, ONCE, 1 dose, On 12/28/21 at 2230, Routine
Is the medication being used for status epilepticu s? No [facility] oxazepam (SERAX) capsule 15 mg 12-29 00:28: 20 Yes 15mg 15 mg, Oral, Q4HPRN, Starting on 12/28/21 at 1928, Until Discontinu ed, Routine, Only while awake for DBP equal to or greater than 100, HR equal to or greater than 100. [facility] ondansetron (ZOFRAN (PF)) injection 4 mg 12-29 00:23: 47 Yes 4mg 4 mg, Slow IV Push, Q6HPRN, Starting on 12/28/21 at 1923, Until Discontinu ed, Routine, Nausea and Vomiting (N/V) [facility] acetaminoph en (TYLENOL) tablet 650 mg 12-29 00:23: 37 Yes 650mg 650 mg, Oral, Q6HPRN, Starting on 12/28/21 at 1923, Until Discontinu ed, Routine, Pain (scale 1-3), Temp > 38.5 C [facility] chlordiazeP OXIDE (LIBRIUM) capsule 25 mg 12-28 23:15: 00 12-28 23:24 :00 No 25mg 25 mg, Oral, ONCE, 1 dose, On 12/28/21 at 1815, JACIEL [facility] NaCl 0.9% (NS) bolus infusion 2,000 mL 12-28 22:45: 00 12-28 23:18 :00 No 2000mL at 999 mL/hr, 2,000 mL, IV Infusion, ONCE, 1 dose, On 12/28/21 at 1745, JACIEL [facility] LORazepam (ATIVAN) injection 1 mg 12-28 20:45: 00 12-28 20:49 :00 No 1mg 1 mg, Slow IV Push, ONCE, 1 dose, On 12/28/21 at 1545, STAT
Is the medication being used for status epilepticu s? No [facility] acetaminoph en (TYLENOL) 500 mg tablet 10-06 00:00: 00 Yes 500mg Take 1 Tab by mouth every 6 (six) hours as needed for Pain. [facility] acetaminoph en (TYLENOL) 500 mg tablet 10-06 00:00: 00 Yes 500mg Take 1 Tab by mouth every 6 (six) hours as needed for Pain. [facility] acetaminoph en (TYLENOL) 500 mg tablet 10-06 00:00: 00 Yes 500mg Take 1 Tab by mouth every 6 (six) hours as needed for Pain. [facility] acetaminoph en (TYLENOL) 500 mg tablet 10-06 00:00: 00 Yes 500mg Take 1 Tab by mouth every 6 (six) hours as needed for Pain. [facility] acetaminoph en (TYLENOL) 500 mg tablet 10-06 00:00: 00 Yes 500mg Take 1 Tab by mouth every 6 (six) hours as needed for Pain. [facility] acetaminoph en (TYLENOL) 500 mg tablet 10-06 00:00: 00 Yes 500mg Take 1 Tab by mouth every 6 (six) hours as needed for Pain. [facility] Vital Signs Vital Name Observation Time Observation Value Comments S alliglo Systolic blood pressure 2022-11-11 20:31:31 116 mm[Hg] [facility] Diastolic blood pressure 2022-11-11 20:31:31 77 mm[Hg] [facility] Heart rate 2022-11-11 20:31:31 84 /min [facility] Respiratory rate 2022-11-11 20:31:31 12 /min [facility] Oxygen saturation in Arterial blood by Pulse oximetry 2022-11-11 20:31:31 90 /min [facility] Body temperature 2022-11-11 18:49:00 37.11 Theresa [facility] Body height 2022-11-11 18:49:00 160 cm [facility] Body weight 2022-11-11 18:49:00 68.04 kg [facility] BMI 2022-11-11 18:49:00 26.57 kg/m2 [facility] Body temperature 2022-08-11 14:00:00 36.5 Theresa [facility] Systolic blood pressure 2022-08-11 10:00:00 116 mm[Hg] [facility] Diastolic blood pressure 2022-08-11 10:00:00 71 mm[Hg] [facility] Heart rate 2022-08-11 10:00:00 70 /min [facility] Respiratory rate 2022-08-11 10:00:00 16 /min [facility] Body weight 2022-08-11 10:00:00 65.499 kg [facility] BMI 2022-08-11 10:00:00 25.58 kg/m2 [facility] Oxygen saturation in Arterial blood by Pulse oximetry 2022-08-11 10:00:00 100 /min [facility] Body height 2022-08-10 22:12:00 160 cm [facility] Systolic blood pressure 2022-04-06 16:00:00 125 mm[Hg] [facility] Diastolic blood pressure 2022-04-06 16:00:00 75 mm[Hg] [facility] Heart rate 2022-04-06 16:00:00 87 /min [facility] Respiratory rate 2022-04-06 16:00:00 22 /min [facility] Oxygen saturation in Arterial blood by Pulse oximetry 2022-04-06 16:00:00 98 /min [facility] Body temperature 2022-04-06 14:41:00 37 Theresa [facility] Body height 2022-04-06 14:41:00 160 cm [facility] Body weight 2022-04-06 14:41:00 63.504 kg [facility] BMI 2022-04-06 14:41:00 24.80 kg/m2 [facility] Systolic blood pressure 2022-01-20 02:27:00 121 mm[Hg] [facility] Diastolic blood pressure 2022-01-20 02:27:00 75 mm[Hg] [facility] Heart rate 2022-01-20 02:27:00 79 /min [facility] Respiratory rate 2022-01-20 02:27:00 12 /min [facility] Oxygen saturation in Arterial blood by Pulse oximetry 2022-01-20 02:27:00 98 /min [facility] Body temperature 2022-01-19 22:19:00 36.44 Theresa [facility] Body weight 2022-01-19 22:19:00 60.328 kg [facility] BMI 2022-01-19 22:19:00 23.56 kg/m2 [facility] Systolic blood pressure 2021-12-30 20:52:00 134 mm[Hg] [facility] Diastolic blood pressure 2021-12-30 20:52:00 76 mm[Hg] [facility] Heart rate 2021-12-30 20:52:00 67 /min [facility] Body temperature 2021-12-30 20:26:00 36.67 Theresa [facility] Oxygen saturation in Arterial blood by Pulse oximetry 2021-12-30 20:26:00 99 /min [facility] Respiratory rate 2021-12-30 16:21:00 18 /min [facility] Body weight 2021-12-30 08:27:00 60.464 kg [facility] BMI 2021-12-30 08:27:00 23.61 kg/m2 [facility] Body height 2021-12-29 01:29:00 160 cm [facility] Procedures Procedure Date / Time Performed Performing Clinician Source MAGNESIUM 2022-11-11 19:05:00 Hemant Klein [facility] BASIC METABOLIC PANEL (NA, K, CL, CO2, GLUCOSE, BUN, CREATININE, CA) 2022-11-11 19:05:00 Hemant Klein [facility] ETHANOL 2022-11-11 19:05:00 Hemant Klein [facility] CBC WITH DIFF 2022-11-11 19:05:00 Hemant Klein [facility] POCT GLUCOSE (AUTOMATED) 2022-08-11 13:36:00 Arvind Prado [facility] PHOSPHORUS 2022-08-11 10:35:00 Jessica Prado [facility] MAGNESIUM 2022-08-11 10:35:00 Jessica Prado [facility] AMMONIA, PLASMA 2022-08-11 10:35:00 Jessica Prado [facility] COMP. METABOLIC PANEL ([id number]) 2022-08-11 10:35[facility] 2022-08-11 10:35:[address] [facility] POCT GLUCOSE (AUTOMATED) 2022-08-11 02:15:00 Arvind Prado [facility] POCT GLUCOSE (AUTOMATED) 2022-08-10 23:10:00 Arvind Prado gregoria [facility] POCT GLUCOSE (AUTOMATED) 2022-08-10 18:20:00 Arvind Prado [facility] POCT GLUCOSE (AUTOMATED) 2022-08-10 14:11:00 Arvind Prado [facility] POCT GLUCOSE (AUTOMATED) 2022-08-10 10:59:00 Gopal Driscoll [facility] COVID-19 (ID NOW RAPID TESTING) 2022-08-10 07:17:00 Rayray Driscoll [facility] LAB ONLY COVID INTERPRETATION 2022-08-10 07:17:00 Rayray Driscoll [facility] HB ECG ROUTINE & RHYTHM STRIP 2022-08-10 06:03:48 Rayray Driscoll [facility] URINALYSIS 2022-08-10 05:46:[address] [facility] URINE DRUG (IMMUNOASSAY) - COMPREHENSIVE DRUG SCREEN W/O REFLEX 2022-08-10 05:45:00 Rayray Driscoll [facility] CREATINE KINASE 2022-08-10 05:16:00 [facility] 2022-[facility]-10 05:16:00 Rayray Driscoll [facility] MAGNESIUM 2022-08-10 05:16:00 Rayray Driscoll [facility] TROPONIN I 2022-08-10 05:16:[address] [facility] COMP. METABOLIC PANEL ([id number]) 2022-08-10 05:16:00 Rayray Driscoll [facility] ETHANOL 2022-08-10 05:16:00 Rayray Driscoll [facility] CBC WITH DIFF 2022-08-10 05:16:00 Rayray Driscoll [facility] N-TERMINAL PRO-BNP 2022-08-10 05:16:00 Rayray Driscoll [facility] CRITICAL CARE 2022-08-10 04:52:00 Rayray Driscoll [facility] XR CHEST 1 VW 2022-04-06 14:51:50 Diya Chowdhury [facility] LIPASE 2022-04-06 14:42:00 [facility] 2022-04-06 14:42:00 [address] Un [facility] COMP. METABOLIC PANEL ([id number]) 2022-04-06 14:42:00 Diya Chowdhury [facility] CBC WITH DIFF 2022-04-06 14:42:00 Diya Chowdhury [facility] PROTHROMBIN TIME / INR 2022-04-06 14:42:00 Diya Chowdhury [facility] ACTIVATED PARTIAL THRMPLAS NELDA 2022-04-06 14:42:00 Diya Chowdhury [facility] LACTIC ACID WHOLE BLOOD 2022-01-20 00:22:00 Leticia Baldwin [facility] URINE DRUG (IMMUNOASSAY) - COMPREHENSIVE DRUG SCREEN 2022-01-19 23:10:00 Leticia Baldwin [facility] URINALYSIS 2022-01-19 23:10:00 Leticia Baldwin [facility] TROPONIN I 2022-01-19 23:00:00 Leticia Baldwin [facility] COMP. METABOLIC PANEL ([id number]) 2022-01-19 23:00:00 Leticia Baldwin [facility] LITHIUM 2022-01-19 23:00:00 [facility] 23:00:[address] [facility] CBC WITH DIFF 2022-01-19 23:00:00 Leticia Baldwin [facility] COVID-19 (ID NOW RAPID TESTING) 2022-01-19 23:00:00 Leticia Baldwin [facility] CT HEAD WO CONTRAST 2022-01-19 22:49:00 Leticia Baldwin [facility] XR CHEST 1 VW 2022-01-19 22:41:00 Leticia Baldwin [facility] POCT GLUCOSE (AUTOMATED) 2022-01-19 22:25:00 Leticia Baldwin [facility] POCT GLUCOSE (AUTOMATED) 2021-12-30 21:55:00 Arvind Prado [facility] POCT GLUCOSE (AUTOMATED) 2021-12-30 16:21:00 Arvind Prado [facility] POCT GLUCOSE (AUTOMATED) 2021-12-30 12:30:00 Arvind Prado [facility] HEPATIC FUNCTION PANEL ([id number]) (ALB,T.PRO,BILI T,BU/BC,ALT,AST,ALK PHOS) 2021-12-30 09:28:00 Maira Gaitan [facility] POCT GLUCOSE (AUTOMATED) 2021-12-30 02:11:00 Arvind Prado [facility] POCT GLUCOSE (AUTOMATED) 2021-12-29 21:41:00 Arvind Prado [facility] POCT GLUCOSE (AUTOMATED) 2021-12-29 16:37:00 Arvind Prado [facility] TRANSTHORACIC ECHO (TTE) COMPLETE W/ CONTRAST 2021-12-29 13:05:00 Jessica Prado [facility] POCT GLUCOSE (AUTOMATED) 2021-12-29 12:41:00 Arvind Prado [facility] TROPONIN I 2021-12-29 09:42:00 [place], Jessica [facility] TROPONIN I 2021-12-29 04:55:00 Jessica Prado [facility] CT HEAD WO CONTRAST 2021-12-28 21:18:22 Poppy Renteria [facility] AMMONIA, PLASMA 2021-12-28 21:00:00 Pia Renteria [facility] COVID-19 (ID NOW RAPID TESTING) 2021-12-28 20:42:00 Pia Renteria [facility] LAB ONLY COVID INTERPRETATION 2021-12-28 20:42:00 Pia Renteria [facility] URINE DRUG (IMMUNOASSAY) - COMPREHENSIVE DRUG SCREEN W/O REFLEX 2021-12-28 20:42:00 Pia Renteria [facility] URINALYSIS 2021-12-28 20:40:00 [facility] 2021-12-28 20:40:00 Corina Renteria [facility] TROPONIN I 2021-12-28 20:40:00 Pia Renteria [facility] THYROID STIMULATING HORMONE 2021-12-28 20:40:00 Jessica Prado [facility] COMP. METABOLIC PANEL ([id number]) 2021-12-28 20:40:00 Pia Renteria [facility] LIPID PANEL (19459)(TOTAL CHOLESTEROL, TRIGLYCERIDES, HDL) 2021-12-28 20:40:00 Demetrius Langford [facility] ETHANOL 2021-12-28 20:40:00 Demetrius Langford [facility] CBC WITH DIFF 2021-12-28 20:40:00 Pia Renteria [facility] GLYCOSYLATED HEMOGLOBIN (A1C) 2021-12-28 20:40:00 Jessica Prado [facility] PROTHROMBIN TIME / INR 2021-12-28 20:40:00 Lesly Renteria [facility] XR CHEST 1 VW 2021-12-28 20:16:00 Pia Renteria [facility] HB ECG ROUTINE & RHYTHM STRIP 2021-12-28 20:04:59 Pia Renteria [facility] Encounters Start Date/Time End Date/Time Encounter Type Admission Type Attending [facility] Care Department Encounter ID Source 2021-09-17 16:45:00 Inpatient [facility] [id number] [facility] 2020-06-06 16:07:00 Inpatient [facility] [id number] [facility] 2020-06-06 06:20:00 Inpatient [facility] [id number] [facility] 2020-06-05 19:35:00 Inpatient [facility] [id number] [facility] 2020-05-23 19:53:00 Inpatient [facility] [id number] [facility] 2020-05-23 19:53:00 Inpatient [facility] [id number] [facility] 2022-11-11 13:50:00 2022-11-11 16:07:00 Emergency [facility] [id number] [facility] 2022-11-11 13:50:00 2022-11-11 16:07:00 Emergency [facility] [id number] [id number] [id number] [facility] 2022-10-14 20:59:00 2022-10-14 20:59:00 Emergency [facility] [id number] [facility] 2022-10-14 20:59:00 2022-10-14 20:59:00 Emergency Emergency [place] [facility] [id number] [facility] 2022-08-09 22:59:00 2022-08-11 13:02:00 Outpatient JESSICA GAINES [facility] [id number] [facility] 2022-08-09 22:59:00 2022-08-11 13:02:00 Emergency Rayray Driscoll [facility]elani Edion[facility] [id number] [id number] [id number] [id number] [facility] 2022-04-06 09:38:00 2022-04-06 11:42:00 Emergency X DIYA CHOWDHURY [facility] ERT [id number] [facility] 2022-04-06 09:38:00 2022-04-06 11:42:00 Emergency Diya Chowdhury [facility] [id number] [id number] 4.2.7.2.686 [id number] [facility] 2022-03-07 12:38:00 2022-03-07 12:38:00 Emergency [facility] [id number] [place] [address] 2022-03-07 12:38:00 2022-03-07 12:38:00 Emergency Emergency Fidel Cuellar [facility] [id number] [facility] 2022-01-19 17:18:00 2022-01-19 22:00:00 Emergency X DIRK YARBROUGH [facility] ERT [id number] [facility] 2022-01-19 17:18:00 2022-01-19 22:00:00 Emergency Leticia Baldwin Julio C [facility] [id number] 350.1.13.10 4.2.7.2.686 [id number] [facility] 2021-12-31 00:00:00 2021-12-31 00:00:00 Transition of Care Faye Portillo [id number] 350.1.13.10 4.2.7.2.686 [id number] [facility] 2021-12-28 14:53:00 2021-12-30 17:42:00 Inpatient X JESSICA PRADO [facility] MARGO [id number] [facility] 2021-12-28 14:53:00 2021-12-30 17:42:00 Hospital Encounter Pia Renteria Jelani [facility] [id number] 350.1.13.10 4.2.7.2.686 [id number] [facility] 2021-09-17 16:47:00 2021-09-17 16:47:00 Emergency [facility] [id number] [facility] 2020-06-06 16:07:00 2020-06-06 16:07:00 Emergency [facility] [id number] [facility] Results Test Description Test Time Test Comments Results Resul t Comments Source ETHANOL 2022-11-11 19:45:56 ALCOHOL<10mg/dL0 11/11/2022 2:45 PM [facility]<10 Hpvzeyny11-712 Toxic>100 Depression of HOLLOCK MAKER>400 [facility] 19:41:47* Test Item Value Reference Range Interpretation Comme nts MAGNESIUM (test code = 0265199701) 1.8 mg/dL 1.7-2.4 Lab Interpretation (test cod e = 72788-7) [facility] WITH [id number] 19:25:26* Test Item Value Reference Range Interpretation [...] 33.9 g/dL 31.2-35.0 RDW-SD (test code = 49179-9) 46.0 fL 38.5-51.6 RDW-CV (test code = 788-0) 13.5 % 12.1-15.4 PLT (test code = 777-3) 237 See_Comment [Automated messa ge] The system which generated this result transmitted reference range: 150 - 328 10*3/?L. The reference range was not used to interpret this result as normal/abnormal. MPV (test code = 37959-4) 8.9 fL 9.8-13.0 L NRBC/100 WBC (test code = 2388212611) 0.0 See_Comment [Automated [employer] ssage] The system which generated this result transmitted reference range: 0.0 - 10.0 /100 WBCs. The reference range was not used to interpret this result as normal/abnormal. NRBC x10^3 (test code = 1060986388) See_Comment [Automated messa ge] The system which generated this result transmitted reference range: 10*3/?L. The reference range was not used to interpret this result as normal/abnormal. GRAN MAT (NEUT) % (test code = 770-8) 71.2 % IMM GRAN % (test code = 3126999570) 0.30 % LYMPH % (test code = 736-9) 18.2 % MONO % (test code = 5905-5) 8.4 % EOS % (test code = 713-8) 1.0 % BASO % (test code = 706-2) 0.9 % GRAN MAT x10^3(ANC) (test code = 5763178980) 4.86 10*3/uL 1.99-6.95 IMM GRAN x10^3 (test code = 6939026342) 0.00-0.06 LYMPH x10^3 (test code = 731-0) 1.24 10*3/uL 1.09-3.23 MONO x10^3 (test code = 742-7) 0.57 10*3/uL 0.36-1.02 EOS x10^3 (test code = 711-2) 0.07 10*3/uL 0.06-0.53 BASO x10^3 (test code = 704-7) 0.06 10*3/uL 0.01-0.09 Lab Interpretation (test code = 01593-1) [facility] Rflx Cult/Nqxxo3629-14-79 22:20:00* Test Item Value Reference Range Interpretation Comme nts Color,Urine (test code = UCOL) Yellow Yellow Clarity,Urine (test code = UCLAR) Clear Clear Ph, Urine (test code = UPH) 7.0 5.0-9.0 N Specific [place],Urine (test code = USG) 1.020 1.005-1.030 N [...] code = ULEU) Negative mg/dL Negative Drug Screen,[id number] 22:20:00* Test Item Value Reference Range Interpretation [...] UPROP) Negative Negative Complete Blood Count Auto [id number] 21:21:00* Test Item Value Reference Range Interpretation [...] code = NRBCP) 0 % Comprehensive Metabolic Rpxav2375-41-80 21:21:00* Test Item Value Reference Range Interpretation [...] a race coefficient. Additional information canbe found at:[email or web address]_[email or web address] 5.pdf ([email or web address]) [Automated message] The system [...] = ALP) 134 U/L 46-116 H Ethanol Ccyyl4536-30-74 21:21:00* Test Item Value Reference Range Interpretation Comme nts Ethanol (test code = ETOH) < 3 mg/dL The pharmacologi yudy response to blood alcohol levels mayvary from individual to individual. The fatal concentrationhas been reported to be >400mg/dL. POCT GLUCOSE (AUTOMATED)2022-08-11 13:40:35* Test Item Value Reference Range Interpretation Comme nts POCT GLU (test code = 1540988208) 121 mg/dL 70-110 H Lab Interpretation (test cod e = 26770-7) Abnormal [facility] GLUCOSE (AUTOMATED)2022-08-11 02:18:58* Test Item Value Reference Range Interpretation Comme nts POCT GLU (test code = 7701760490) 183 mg/dL 70-110 H Lab Interpretation (test cod e = 63748-4) Abnormal [facility] GLUCOSE (AUTOMATED)2022-08-10 23:16:11* Test Item Value Reference Range Interpretation Comme nts POCT GLU (test code = 4868540744) 176 mg/dL 70-110 H Lab Interpretation (test cod e = 24476-1) Abnormal [facility] GLUCOSE (AUTOMATED)2022-08-10 18:22:51* Test Item Value Reference Range Interpretation Comme nts POCT GLU (test code = 0065641792) 165 mg/dL 70-110 H Lab Interpretation (test cod e = 15192-5) Abnormal [facility] GLUCOSE (AUTOMATED)2022-08-10 14:18:05* Test Item Value Reference Range Interpretation Comme nts POCT GLU (test code = 6470709667) 138 mg/dL 70-110 H Lab Interpretation (test cod e = 32696-2) Abnormal [facility] GLUCOSE (AUTOMATED)2022-08-10 11:01:21* Test Item Value Reference Range Interpretation Comme nts POCT GLU (test code = 8240616048) 143 mg/dL 70-110 H Lab Interpretation (test cod e = 60354-8) [facility]normal [facility] [id number] 06:51:18* Test Item Value Reference Range Interpretation Comme nts TROPONIN I (test code = 7113637997) 0.008 ng/mL <=0.034 JUAN ALBERTO (test code [...] of biotin. Lab Interpretation (test code = 11097-6) Normal [facility] UCQ-[id number] 06:47:37* Test Item Value Reference Range Interpretation Comme nts NT-proBNP (test code = 1951235785) 37 pg/mL <=125 JUAN ALBERTO (test code = JUAN ALBERTO) Biotin has been reported to cause a negative bias, interpret results relative to patient's use of biotin. Lab Interpretation (test code = 77609-1) Normal [facility]2023-[facility]-19 06:25:52 ALCOHOL<10mg/dL08/10/2022 12:25 AM [facility]10 Zmuzrves66-293 Toxic>100 Depression of HOLLOCK MAKER>[address] [facility]. METABOLIC PANEL (37063)2022-08-10 06:19:15* Test Item Value Reference Range Interpretation Comme nts NA (test code = 7107823315) 135 mmol/L 135-145 K (test code = 5382499741) 4.3 mmol/L 3.5-5.0 CL (test code = 1816377686) 98 mmol/L 98-108 CO2 TOTAL (test code = 9656588752) 30 mmol/L 23-31 AGAP (test code = 7504192339) 7 2-16 BUN (test code = 0161927324) 11 mg/dL 7-23 GLUCOSE (test code = 9756888933) 153 mg/dL 70-110 H CREATININE (test code = 1258722793) 0.77 mg/dL 0.60-1.25 TOTAL BILI (test code = 4314455525) 0.9 mg/dL 0.1-1.1 CALCIUM (test code = 7708624967) 10.0 mg/dL 8.6-10.6 T PROTEIN (test code = 3225610425) 7.7 g/dL 6.3-8.2 ALBUMIN (test code = 6323643745) 4.6 g/dL 3.5-5.0 ALK PHOS (test code = 5975392162) 92 U/L 34-122 ALTv (test code = 1742-6) 35 U/L 5-50 AST(SGOT) (test code = 7381821350) 42 U/L 13-40 H eGFR (test code = 0007570443) 106.1 mL/min/1.73m2 JUAN ALBERTO (test code = [...] imaging tests). Lab Interpretation (test code = 54909-6) [facility]normal [facility] 06:19:15* Test Item Value Reference Range Interpretation Comme nts MAGNESIUM (test code = 6666891392) 2.2 mg/dL 1.7-2.4 Lab Interpretation (test cod e = 86679-6) Normal [facility] 06:18:55* Test Item Value Reference Range Interpretation Comme nts LIPASE (test code = 3515726052) 18 U/L 0-220 Lab Interpretation (test cod e = 32538-8) Normal [facility] [id number] 06:18:55* Test Item Value Reference Range Interpretation Comme nts CK (test code = 7290877914) 174 U/L 33-194 Lab Interpretation (test cod e = 01617-0) Normal [facility] WITH [id number] 06:02:35* Test Item Value Reference Range Interpretation Comme nts WBC (test code = 6690-2) 7.50 See_Comment [Automated [employer]] The system which generated this result transmitted reference range: 4.20 - 10.70 10*3/?L. The reference range was not used to interpret this result as normal/abnormal. RBC (test code = 789-8) 4.80 See_Comment [Automated [employer]] The system which generated this result transmitted [...] 32.4 g/dL 31.2-35.0 RDW-SD (test code = 27048-5) 50.2 fL 38.5-51.6 RDW-CV (test code = 788-0) 14.3 % 12.1-15.4 PLT (test code = 777-3) 241 See_Comment [Automated messa ge] The system which generated this result transmitted reference range: 150 - 328 10*3/?L. The reference range was not used to interpret this result as normal/abnormal. MPV (test code = 09668-1) 8.6 fL 9.8-13.0 L NRBC/100 WBC (test code = 0459084689) 0.0 See_Comment [Automated [employer] ssage] The system which generated this result transmitted reference range: 0.0 - 10.0 /100 WBCs. The reference range was not used to interpret this result as normal/abnormal. NRBC x10^3 (test code = 7829902872) See_Comment [Automated messa ge] The system which generated this result transmitted reference range: 10*3/?L. The reference range was not used to interpret this result as normal/abnormal. GRAN MAT (NEUT) % (test code = 770-8) 63.9 % IMM GRAN % (test code = 8336301768) 0.50 % LYMPH % (test code = 736-9) 17.6 % MONO % (test code = 5905-5) 16.5 % EOS % (test code = 713-8) 0.7 % BASO % (test code = 706-2) 0.8 % GRAN MAT x10^3(ANC) (test code = 5766124180) 4.79 10*3/uL 1.99-6.95 IMM GRAN x10^3 (test code = 7470615705) 0.04 10*3/uL 0.00-0.06 LYMPH x10^3 (test code = 731-0) 1.32 10*3/uL 1.09-3.23 MONO x10^3 (test code = 742-7) 1.24 10*3/uL 0.36-1.02 H EOS x10^3 (test code = 711-2) 0.05 10*3/uL 0.06-0.53 L BASO x10^3 (test code = 704-7) 0.06 10*3/uL 0.01-0.09 Lab Interpretation (test code = 26164-9) Abnormal [facility] [id number] 15:15:32* Test Item Value Reference Range Interpretation Comments TROPONIN I (test code = 0738009353) 0.007 ng/mL See_Comment [Automated message] The system [...] of biotin. Lab Interpretation (test code = 39340-4) Normal [facility] WorthaPTT2022-10-16 15:08:29* Test Item Value Reference Range Interpretation [...] 30 seconds. Lab Interpretation (test code = 04640-7) Normal [facility] WorthPROTHROMBIN TIME / [id number] 15:06:28* Test Item Value Reference Range Interpretation Comme [facility] PROTIME PATIENT (test code = 5964-2) See_Comment [Automated [employer] ge] The system which generated this result transmitted reference range: 12.0 - 14.7 Seconds. The reference range was not used to interpret this result as normal/abnormal. INR (test code = 6301-6) Normal INR <1.1; Warfarin Therapeutic range 2.0 to 3.0 or 2.5 to 3.5, depending upon the indications. Lab Interpretation (test code = 18963-2) Normal [facility]. METABOLIC PANEL (81145)2022-04-06 15:03:31* Test Item Value Reference Range Interpretation Comme nts NA (test code = 4652398060) 136 mmol/L 135-145 K (test code = 6601323809) 5.0 mmol/L 3.5-5 CL (test code = 9940349433) 104 mmol/L 98-108 CO2 TOTAL (test code = 4061980268) 21 mmol/L 23-31 L AGAP (test code = 6623767050) 2-16 BUN (test code = 9399212760) 11 mg/dL 7-23 GLUCOSE (test code = 9851755325) 162 mg/dL 70-110 H CREATININE (test code = 5416143945) 0.52 mg/dL 0.6-1.25 L TOTAL BILI (test code = 6999473340) 1.0 mg/dL 0.1-1.1 CALCIUM (test code = 2595609281) 9.3 mg/dL 8.6-10.6 T PROTEIN (test code = 6637867779) 7.4 g/dL 6.3-8.2 ALBUMIN (test code = 9953430122) 4.4 g/dL 3.5-5 ALK PHOS (test code = 2036044791) 134 U/L 34-122 H ALTv (test code = 1742-6) 17 U/L 5-50 AST(SGOT) (test code = 4873516209) 38 U/L 13-40 eGFR (test code = 4204727794) mL/min/1.73m2 JUAN ALBERTO (test code = JUAN [...] imaging tests). Lab Interpretation (test code = 54579-2) Abnormal [facility], [id number] 15:03:31* Test Item Value Reference Range Interpretation Comme nts LIPASE (test code = 3768256649) 29 U/L 0-220 Lab Interpretation (test cod e = 03412-1) Normal [facility] WITH [id number] 14:51:49* Test Item Value Reference Range Interpretation Comme nts WBC (test code = 6690-2) See_Comment [[employer]] The system which generated this result transmitted reference range: 4.20 - 10.70 10*3/?L. The reference range was not used to interpret this result as normal/abnormal. RBC (test code = 789-8) See_Comment [Automated [employer]] The system which generated this result transmitted [...] 34.0 g/dL 31.2-35 RDW-SD (test code = 04479-5) 45.9 fL 38.5-51.6 RDW-CV (test code = 788-0) 13.3 % 12.1-15.4 PLT (test code = 777-3) See_Comment [Automated messa ge] The system which generated this result transmitted reference range: 150 - 328 10*3/?L. The reference range was not used to interpret this result as normal/abnormal. MPV (test code = 80779-3) 8.4 fL 9.8-13 L NRBC/100 WBC (test code = 3350032254) See_Comment [Automated [employer] ss[employer]] The system which generated this result transmitted reference range: 0.0 - 10.0 /100 WBCs. The reference range was not used to interpret this result as normal/abnormal. NRBC x10^3 (test code = 9990615329) See_Comment [Automated messa ge] The system which generated this result transmitted reference range: 10*3/?L. The reference range was not used to interpret this result as normal/abnormal. GRAN MAT (NEUT) % (test code = 770-8) 63.0 % IMM GRAN % (test code = 8497269319) 0.50 % LYMPH % (test code = 736-9) 25.2 % MONO % (test code = 5905-5) 9.8 % EOS % (test code = 713-8) 0.3 % BASO % (test code = 706-2) 1.2 % GRAN MAT x10^3(ANC) (test code = 5520518216) 3.73 10*3/uL 1.99-6.95 IMM GRAN x10^3 (test code = 6774461053) 0.03 10*3/uL 0-0.06 LYMPH x10^3 (test code = 731-0) 1.49 10*3/uL 1.09-3.23 MONO x10^3 (test code = 742-7) 0.58 10*3/uL 0.36-1.02 EOS x10^3 (test code = 711-2) 0.06-0.53 L BASO x10^3 (test code = 704-7) 0.07 10*3/uL 0.01-0.09 Lab Interpretation (test code = 12757-6) Abnormal [facility], Urinalysis Rflx Cult/Nwags3778-48-13 13:53:00* Test Item Value Reference Range Interpretation Comme nts Color,Urine (test code = UCOL) Yellow Yellow Clarity,Urine (test code = UCLAR) Cloudy Clear A Ph, Urine (test code = UPH) 7.5 5.0-9.0 N Specific [place],Urine (test code = USG) 1.025 1.005-1.030 N [...] = ULEU) Negative mg/dL Negative UF REFLEXDrug Screen,Quogj2684-76-24 13:53:00* Test Item Value Reference Range Interpretation [...] UPROP) Negative Negative Complete Blood Count Auto Tggt2909-16-81 12:58:00* Test Item Value Reference Range Interpretation [...] = NRBCP) 0 % Coronavirus PCR, COVID19 Aftbu6437-77-51 12:58:00* Test Item Value Reference Range Interpretation Comme nts Coronavirus PCR, COVID19 Rapid (test code = SARSCOV2) Coronavirus PCR, COVID19 Rapid (test code = NIMMHTB76.1) Reference Range: Negative SARS-CoV-2 PCR Result: (test code = SARS-CoV-2 PCR Result:) Negative by RT-PCR COVID-19 Status: AsymptomaticComprehensive Metabolic Rmvwm2661-95-38 12:58:00* Test Item Value Reference Range Interpretation [...] = ALP) 144 U/L 46-116 H Ethanol Pyhvv0229-48-70 12:58:00* Test Item Value Reference Range Interpretation Comme nts Ethanol (test code = ETOH) < 3 mg/dL The pharmacologi yudy response to blood alcohol levels mayvary from individual to individual. The fatal concentrationhas been reported to be >400mg/dL. [id number] 01:47:56* Test Item Value Reference Range Interpretation Comme nts Myton (test code = 2017039252) 0.7 mmol/L 0.6-1.2 JUAN ALBERTO (test code = JUAN ALBERTO) Toxic Range: ? Greater than 1.2 mmol/L Lab Interpretation (test code = 23316-7) Normal [facility] [id number] 00:26:53* Test Item Value Reference Range Interpretation Comments TROPONIN I (test code = 8983473722) 0.002 ng/mL See_Comment [Automated message] The system [...] of biotin. Lab Interpretation (test code = 68449-9) Normal [facility]22-[facility] 00:18:52 ALCOHOL<10mg/dL01/19/2022 7:18 PM [facility]<10 Jqmhjfyq15-468 Toxic>100 Depression of HOLLOCK MAKER>400 [facility] METABOLIC PANEL (72602)2022-01-20 00:16:16* Test Item Value Reference Range Interpretation Comme nts NA (test code = 7353038177) 137 mmol/L 135-145 K (test code = 2882015489) 4.5 mmol/L 3.5-5 CL (test code = 7137100039) 103 mmol/L 98-108 CO2 TOTAL (test code = 0864107547) 26 mmol/L 23-31 AGAP (test code = 2438409136) 2-16 BUN (test code = 1538938607) 10 mg/dL 7-23 GLUCOSE (test code = 9438856768) 121 mg/dL 70-110 H CREATININE (test code = 6664672900) 0.65 mg/dL 0.6-1.25 TOTAL BILI (test code = 9937478028) 0.8 mg/dL 0.1-1.1 CALCIUM (test code = 9671222392) 11.4 mg/dL 8.6-10.6 H T PROTEIN (test code = 8624945018) 7.2 g/dL 6.3-8.2 ALBUMIN (test code = 6825898538) 4.6 g/dL 3.5-5 ALK PHOS (test code = 4718994140) 112 U/L 34-122 ALTv (test code = 1742-6) 19 U/L 5-50 AST(SGOT) (test code = 9747423584) 26 U/L 13-40 eGFR (test code = 7683436512) mL/min/1.73m2 JUAN ALBERTO (test code = JUAN [...] imaging tests). Lab Interpretation (test code = 21514-3) Abnormal [facility] WITH [id number] 23:43:54* Test Item Value Reference Range Interpretation Comme nts WBC (test code = 6690-2) See_Comment [[employer]] The system which generated this result transmitted reference range: 4.20 - 10.70 10*3/?L. The reference range was not used to interpret this result as normal/abnormal. RBC (test code = 789-8) See_Comment [[employer]] The system which generated this result transmitted [...] 34.4 g/dL 31.2-35 RDW-SD (test code = 22252-8) 44.0 fL 38.5-51.6 RDW-CV (test code = 788-0) 12.6 % 12.1-15.4 PLT (test code = 777-3) See_Comment [Automated messa ge] The system which generated this result transmitted reference range: 150 - 328 10*3/?L. The reference range was not used to interpret this result as normal/abnormal. MPV (test code = 58942-0) 9.1 fL 9.8-13 L NRBC/100 WBC (test code = 4534409969) See_Comment [Automated me ssage] The system which generated this result transmitted reference range: 0.0 - 10.0 /100 WBCs. The reference range was not used to interpret this result as normal/abnormal. NRBC x10^3 (test code = 7006654868) See_Comment [Automated messa ge] The system which generated this result transmitted reference range: 10*3/?L. The reference range was not used to interpret this result as normal/abnormal. GRAN MAT (NEUT) % (test code = 770-8) 69.8 % IMM GRAN % (test code = 0881480815) 0.40 % LYMPH % (test code = 736-9) 18.0 % MONO % (test code = 5905-5) 10.9 % EOS % (test code = 713-8) 0.1 % BASO % (test code = 706-2) 0.8 % GRAN MAT x10^3(ANC) (test code = 1648419495) 5.58 10*3/uL 1.99-6.95 IMM GRAN x10^3 (test code = 8330272205) 0.03 10*3/uL 0-0.06 LYMPH x10^3 (test code = 731-0) 1.44 10*3/uL 1.09-3.23 MONO x10^3 (test code = 742-7) 0.87 10*3/uL 0.36-1.02 EOS x10^3 (test code = 711-2) 0.06-0.53 L BASO x10^3 (test code = 704-7) 0.06 10*3/uL 0.01-0.09 Lab Interpretation (test code = 41833-5) Abnormal [facility] GLUCOSE (AUTOMATED)2022-01-19 22:27:41* Test Item Value Reference Range Interpretation Comme nts POCT GLU (test code = 2715779651) 123 mg/dL 70-110 H Lab Interpretation (test cod e = 89965-8) Abnormal [facility] GLUCOSE (AUTOMATED)2021-12-30 22:08:16* Test Item Value Reference Range Interpretation Comme nts POCT GLU (test code = 5852741249) 167 mg/dL 70-110 H Lab Interpretation (test cod e = 39528-1) Abnormal [facility] GLUCOSE (AUTOMATED)2021-12-30 16:50:40* Test Item Value Reference Range Interpretation Comme nts POCT GLU (test code = 9427802883) 154 mg/dL 70-110 H Lab Interpretation (test cod e = 97431-4) Abnormal [facility] GLUCOSE (AUTOMATED)2021-12-30 12:38:43* Test Item Value Reference Range Interpretation Comme nts POCT GLU (test code = 0955749643) 164 mg/dL 70-110 H Lab Interpretation (test cod e = 88770-1) Abnormal [facility] GLUCOSE (AUTOMATED)2021-12-30 02:14:58* Test Item Value Reference Range Interpretation Comme nts POCT GLU (test code = 3356867606) 220 mg/dL 70-110 H Lab Interpretation (test cod e = 89863-2) Abnormal [facility] GLUCOSE (AUTOMATED)2021-12-29 21:50:02* Test Item Value Reference Range Interpretation Comme nts POCT GLU (test code = 6122227457) 191 mg/dL 70-110 H Lab Interpretation (test cod e = 37994-6) Abnormal [facility] GLUCOSE (AUTOMATED)2021-12-29 20:15:01* Test Item Value Reference Range Interpretation Comme nts POCT GLU (test code = 2589256317) 163 mg/dL 70-110 H Lab Interpretation (test cod e = 26223-6) [facility] 19:12:22* Test Item Value Reference Range Interpretation Comme nts Height (test code = 3554676319) in Weight (test code = 4858183982) lbs Systolic BP (test code = 5155605434) mmHg Diastolic BP (test code = 9356723236) mmHg Heart Rate (test code = 4668326909) bpm BSA (test code = 8324348836) 1.62 m2 Ao root annulus (test code = 0522058995) 2.45 cm Ao root diam (test code = 5676890419) 2.45 cm Aortic root (test code = 2973282005) 2.45 cm ACS (test code = 5390198686) 1.66 cm LA size (test code = 6608846836) 3.2 cm LVOT diameter (test code = 6632103091) 1.95 cm LVIDD (test code = 1140436358) 3.60 cm IVS (test code = 5573895428) 0.94 cm Interventricular Septum Diastolic Thickness by 2D (test code = 4214771) 0.94 cm LVPWD (test code = 5643998723) 0.80 cm PW (test code = 2528599606) 0.80 cm 0.6-1.1 EF(Teich) (test code = 1324630602) 52.80 % LVIDS (test code = 3681100790) 2.60 cm FS (test code = 3502904020) 27 % EF - 2D (test code = 71770596) 52.80 % LAV(MOD-sp4) (test code = 7832250141) 16.80 mL MV Peak E Jovany (test code = 9250189775) 46.1 cm/s E wave decelartion time (test code = 4401838821) 0.31 s MV Peak A Jovany (test code = 7923574603) 58.1 cm/s E/A ratio (test code = 6924911909) ratio MV E/e' septal (test code = 1008711627) 5.7 cm/s Tapse (test code = 6317145337) 1.60 cm LVOT stroke volume (test code = 5895494311) 52.10 cm3 LVOT peak jovany (test code = 3822621874) 110.6 cm/s LVOT mn grad (test code = 6420575956) mmHg AV LVOT peak gradient (test code = 9033308371) mmHg LVOT peak VTI (test code = 9405291638) 17.4 cm LV V1 mean (test code = 3345018170) 66.10 cm/s Aortic valve mean velocity (test code = 3452579566) 73.0 cm/s Ao peak jovany (test code = 8485011673) 124.6 cm/s Ao VTI (test code = 6994968476) 18.6 cm AV area by cont VTI (test code = 6210554793) 2.8 cm2 AV area peak jovany (test code = 5460832135) 2.7 cm2 Ao max PG (test code = 5075719369) 6.20 mm[Hg] AV peak gradient (test code = 7530378912) mmHg AV valve area (test code = 5012484998) 2.80 cm2 AV mean gradient (test code = 6766475064) mmHg Radiology Study observation (narrative) (test code = 52420-7) JUAN ALBERTO (test code = JUAN ALBERTO) [...] mL of Lumason [facility] 12:50:31* Test Item Value Reference Range Interpretation Comme nts POCT GLU (test code = 9923201739) 141 mg/dL 70-110 H Lab Interpretation (test cod e = 25622-4) [facility]normal [facility] [id number] 10:38:31* Test Item Value Reference Range Interpretation Comments TROPONIN I (test code = 3911862781) 0.003 ng/mL See_Comment [Automated message] The system [...] of biotin. Lab Interpretation (test code = 97870-3) Normal [facility] (14385)(TOTAL CHOLESTEROL, TRIGLYCERIDES, HDL)2021-12-29 05:56:47* Test Item Value Reference Range Interpretation Comme nts CHOL (test code = 3280542551) 168 mg/dL 120-200 HDL (test code = 3192419794) 102 mg/dL See_Comment [Automated [employer]] The system which generated this result transmitted reference range: >=40. The reference range was not used to interpret this result as normal/abnormal. HDLC RATIO (test code = 2682750090) See_Comment [Automated [employer]] The system which generated this result transmitted reference range: <=5.0. The reference range was not used to interpret this result as normal/abnormal. TRIG (test code = 4637949781) 55 mg/dL 30-170 LDL CHOL (test code = 64131-9) 55 mg/dL See_Comment [Automated [employer]] The system which generated this result transmitted reference range: <=160. The reference range was not used to interpret this result as normal/abnormal. VLDL (test code = 0726947135) 11 mg/dL 5-60 Lab Interpretation (test code = 16636-9) Normal [facility] Horm[facility] (TSH)2021-12-29 05:40:29* Test Item Value Reference Range Interpretation Comme nts TSH (test code = 8886652988) See_Comment Biotin has been reported to cause a negative bias, interpret results relative to patient's use of biotin. [Automated message] The system which generated this result transmitted reference range: 0.45 - 4.70 mIU/L. The reference range was not used to interpret this result as normal/abnormal. Lab Interpretation (test code = 21569-4) Normal [facility]roponin [id number] 05:34:29* Test Item Value Reference Range Interpretation Comments TROPONIN I (test code = 4955337647) 0.006 ng/mL See_Comment [Automated message] The system [...] of biotin. Lab Interpretation (test code = 70919-2) Normal [facility] Worth[facility]OL2022-07-10 04:43:01 ALCOHOL<10mg/dL12/28/2021 11:43 PM [facility] Greater than or equal to 80 mg/dL. NOTE: Whole blood values are approximately 10% to 15% lower than serum and plasma.[facility] Glycosylated Hemoglobin (A1C)2021-12-29 01:51:44* Test Item Value Reference Range Interpretation Comme nts HGB A1C (test code = 4548-4) 6.5 % 4-5.7 H JUAN ALBERTO (test code = JUAN ALBERTO) Reference RangesNormal: <5.7%Prediabetes: 5.7 - 6.4%Diabetes: > 6.5% Lab Interpretation (test code = 61394-3) Abnormal [facility] WorthTROP[facility]IN [id number] 21:26:50* Test Item Value Reference Range Interpretation Comments TROPONIN I (test code = 3338463969) 0.002 ng/mL See_Comment [Automated message] The system [...] of biotin. Lab Interpretation (test code = 42879-9) Normal [facility] WorthN-TERMINAL [id number] 21:23:29* Test Item Value Reference Range Interpretation Comme nts NT-proBNP (test code = 7461780924) 41 pg/mL See_Comment [Automated message] The system which generated this result transmitted reference range: <=125. The reference range was not used to interpret this result as normal/abnormal. JUAN ALBERTO (test code = JUAN ALBERTO) Biotin has been reported to cause a negative bias, interpret results relative to patient's use of biotin. Lab Interpretation (test code = 59865-1) Normal [facility] WorthAMMONIA, [id number] 21:20:38* Test Item Value Reference Range Interpretation Comme nts AMMONIA (test code = 2855784335) 9-33 L Slight hemolysis Lab Interpretation (test code = 26906-5) Abnormal [facility] WorthCOMP. METABOLIC PANEL (52066)2021-12-28 21:08:48* Test Item Value Reference Range Interpretation Comme nts NA (test code = 1802208901) 137 mmol/L 135-145 K (test code = 9910240955) 4.5 mmol/L 3.5-5 CL (test code = 8233941289) 97 mmol/L 98-108 L CO2 TOTAL (test code = 5517136561) 29 mmol/L 23-31 AGAP (test code = 1955021160) 2-16 BUN (test code = 8505811129) 10 mg/dL 7-23 GLUCOSE (test code = 3229429305) 188 mg/dL 70-110 H CREATININE (test code = 4876952356) 0.58 mg/dL 0.6-1.25 L TOTAL BILI (test code = 2926143033) 0.8 mg/dL 0.1-1.1 CALCIUM (test code = 2367205225) 10.5 mg/dL 8.6-10.6 T PROTEIN (test code = 1412080143) 7.6 g/dL 6.3-8.2 ALBUMIN (test code = 8925473876) 4.5 g/dL 3.5-5 ALK PHOS (test code = 2792441250) 107 U/L 34-122 ALTv (test code = 1742-6) 66 U/L 5-50 H AST(SGOT) (test code = 9978291320) 96 U/L 13-40 H eGFR (test code = 5811447242) mL/min/1.73m2 JUAN ALBERTO (test code = JUAN [...] imaging tests). Lab Interpretation (test code = 87803-0) Abnormal [facility] WorthPROTHROMBIN TIME / [id number] 21:01:25* Test Item Value Reference Range Interpretation Comme nts PROTIME PATIENT (test code = 5964-2) See_Comment [Automated [employer]] The system which generated this result transmitted reference range: 12.0 - 14.7 Seconds. The reference range was not used to interpret this result as normal/abnormal. INR (test code = 6301-6) Normal INR <1.1; Warfarin Therapeutic range 2.0 to 3.0 or 2.5 to 3.5, depending upon the indications. Lab Interpretation (test code = 52757-8) Normal [facility] WorthCBC WITH [id number] 20:54:03* Test Item Value Reference Range Interpretation Comme nts WBC (test code = 6690-2) See_Comment [Automated [employer]] The system which generated this result transmitted reference range: 4.20 - 10.70 10*3/?L. The reference range was not used to interpret this result as normal/abnormal. RBC (test code = 789-8) See_Comment [Automated [employer]] The system which generated this result transmitted [...] 34.2 g/dL 31.2-35 RDW-SD (test code = 97904-5) 47.8 fL 38.5-51.6 RDW-CV (test code = 788-0) 13.3 % 12.1-15.4 PLT (test code = 777-3) See_Comment [Automated [employer] Thinking[employer] ge] The system which generated this result transmitted reference range: 150 - 328 10*3/?L. The reference range was not used to interpret this result as normal/abnormal. MPV (test code = 60303-5) 8.6 fL 9.8-13 L NRBC/100 WBC (test code = 5569870523) See_Comment [Automated [employer] ssage] The system which generated this result transmitted reference range: 0.0 - 10.0 /100 WBCs. The reference range was not used to interpret this result as normal/abnormal. NRBC x10^3 (test code = 3289643379) See_Comment [Automated [employer] Thinking[employer] ge] The system which generated this result transmitted reference range: 10*3/?L. The reference range was not used to interpret this result as normal/abnormal. GRAN MAT (NEUT) % (test code = 770-8) 64.1 % IMM GRAN % (test code = 6556370395) 0.40 % LYMPH % (test code = 736-9) 16.6 % MONO % (test code = 5905-5) 17.2 % EOS % (test code = 713-8) 0.2 % BASO % (test code = 706-2) 1.5 % GRAN MAT x10^3(ANC) (test code = 7088962369) 3.47 10*3/uL 1.99-6.95 IMM GRAN x10^3 (test code = 7843981558) 0-0.06 LYMPH x10^3 (test code = 731-0) 0.90 10*3/uL 1.09-3.23 L MONO x10^3 (test code = 742-7) 0.93 10*3/uL 0.36-1.02 EOS x10^3 (test code = 711-2) 0.06-0.53 L BASO x10^3 (test code = 704-7) 0.08 10*3/uL 0.01-0.09 Lab Interpretation (test code = 39995-1) Abnormal [facility] WorthEthanol [id number] 21:08:00* Test Item Value Reference Range Interpretation Comme nts Ethanol (test code = ETOH) < 3 mg/dL The pharmacologi yudy response to blood alcohol levels mayvary from individual to individual. The fatal concentrationhas been reported to be >400mg/dL. Complete Blood Count Auto [id number] 17:33:00* Test Item Value Reference Range Interpretation [...] = NRBCP) 0 % UA, Urinalysis Rflx Cult/[id number] 17:33:00* Test Item Value Reference Range Interpretation Comme nts Color,Urine (test code = UCOL) Dark Yellow Yellow A Clarity,Urine (test code = UCLAR) Clear Clear Ph, Urine (test code = UPH) 6.5 5.0-9.0 N Specific [place],Urine (test code = USG) 1.015 1.005-1.030 N [...] = ULEU) Trace mg/dL Negative A Urine [id number] 17:33:00* Test Item Value Reference Range Interpretation Comme nts RBC,Urine (test code = URBCUF) None Seen /HPF 0-2 WBC,Urine (test code = UWBCUF) 0-5 /HPF 0-5 Epithelial Cell,Urine (test code = UECUF) 0-5 /HPF 0-5 Casts,Urine (test code = UCASTUF) None Seen /LPF None Seen Bacteria,Urine (test code = UBACTUF) None Seen /hpf None Seen Drug Screen,[id number] 17:33:00* Test Item Value Reference Range Interpretation [...] code = UPROP) Negative Negative Comprehensive Metabolic [id number] 17:33:00* Test Item Value Reference Range Interpretation [...] 101 U/L 46-116 N Sars-CoV-2/FLU A/B RSV [id number] 17:31:00* Test Item Value Reference Range Interpretation [...] SARS-CoV-2 PCR Result:) Negative by RT-PCR Drug Screen,[id number] 17:20:00* Test Item Value Reference Range Interpretation [...] UPROP) Negative Negative Complete Blood Count Auto [id number] 17:14:00* Test Item Value Reference Range Interpretation [...] code = NRBCP) 0 % Comprehensive Metabolic [id number] 17:14:00* Test Item Value Reference Range Interpretation [...] = ALP) 207 U/L 46-116 H Ethanol [id number] 17:14:00* Test Item Value Reference Range Interpretation Comme nts Ethanol (test code = ETOH) 192 mg/dL Complete Blood Count Auto [id number] 20:20:00* Test Item Value Reference Range Interpretation [...] code = NRBCP) 0 % Comprehensive Metabolic [id number] 20:20:00* Test Item Value Reference Range Interpretation [...] = ALP) 189 U/L 46-116 H Ethanol [id number] 20:20:00* Test Item Value Reference Range Interpretation Comme nts Ethanol (test code = ETOH) 10 mg/dL Sars-CoV-2/FLU A/B RSV [id number] 20:20:00* Test Item Value Reference Range Interpretation [...] Negative by Nucleic Acid Amplification UA, Urinalysis [id number] 20:20:00* Test Item Value Reference Range Interpretation Comme nts Color,Urine (test code = UCOL) Yellow Y Clarity,Urine (test code = UCLAR) Clear Clear PH,Urine (test code = UPH.XX) 7.0 5.5-8.5 Specific [place],Urine (test code = USG) 1.020 1.005-1.030 N [...] code = ULEU) Negative cells/uL Negative Drug Screen,[id number] 20:20:00* Test Item Value Reference Range Interpretation [...] RESULT TO MICHAELA TRACY CT head/brain wo [facility] [address] [place] [address] Patient Name: Walt Velazquez Medical Record#: [id number] Address: Homeless City/State/Zip: [place] [address]: Vinnie Navarro MD Phone: Insurance: Self Pay /Age/Sex: 1970/50/M Admit/Reg Date: 09/17/[address]: Vinnie Navarro MD Location: [facility]/ PCP: Md KERWIN Flores Date of Service: 09/17/21 Order (s): CT head/brain wo con CPT Code: 14501 Report Number: [id number] Reason for Exam: Altered mental status Location H 31 CT SCANOF THE HEAD WITHOUT CONTRAST CLINICAL HISTORY: Altered [...] intra or extra-axial hemorrhage or fluid collections. Nomidline shift or mass effect. Posterior fossa contents [...]
[2023-07-23 11:51] LABS: SARS-CoV-2 Antigen Rapid Res Negative (Negative)
--- NOTE | 2023-07-23 12:10 | ER ---
Nurse's Notes [facility] Name: Walt Velazquez Age: 52 yrs Sex: Male : 1970 Arrival Date: 07/23/2023 Time: 11:05 Bed 6 Private MD: Diagnosis: Myalgia Presentation: 07/23 11:06 Chief complaint: EMS states: pt is needing to get his medications because he can't kc6 afford to go get them. pt reports pain all over and has not had an alcoholic beverage since yesterday. Coronavirus screen: At this time, the client does not indicate any symptoms associated with coronavirus-19. Ebola Screen: No symptoms or risks identified at this time. Initial Sepsis Screen: Does the patient meet any 2 criteria? No. Patient's initial sepsis screen is negative. Does the patient have a suspected source of infection? No. Patient's initial sepsis screen is negative. Risk Assessment: Do you want to hurt yourself or someone else? Patient reports no desire to harm self or others. Onset of symptoms was July 23, 2023. 11:06 Method Of Arrival: EMS: [facility] 6 11:06 Acuity: LATASHA 4 kc6 Triage Assessment: 11:10 General: Appears in no apparent distress. comfortable, well groomed, well developed, kc6 Behavior is calm, cooperative, appropriate for age, Smells of alcohol. EENT: No signs and/or symptoms were reported regarding the EENT system. Neuro: Level of Consciousness is awake, alert, obeys commands, Oriented to person, place, time, situation, Appropriate for age. Cardiovascular: Capillary refill < 3 seconds. Respiratory: Airway is patent Trachea midline Respiratory effort is even, unlabored, Respiratory pattern is regular, symmetrical. GI: No signs and/or symptoms were reported involving the gastrointestinal system. : No signs and/or symptoms were reported regarding the genitourinary system. Derm: No signs and/or symptoms reported regarding the dermatologic system. Skin is intact, is healthy with good turgor, Skin is pink, warm \T\ dry. Musculoskeletal: No signs and/or symptoms reported regarding the musculoskeletal system. Circulation, motion, and sensation intact. Capillary refill < 3 seconds, Range of motion: intact in all extremities. Historical: - Allergies: 11:10 Trazodone; kc6 - PMHx: 11:10 Alcoholism; Bipolar II; Hypertensive disorder; Parkinsons; Seizure; kc6 - Immunization history:: Adult Immunizations unknown. - Social history:: Smoking status: unknown. Screenin:11 [facility] ED Fall Risk Assessment (Adult) History of falling in the last 3 months, kc6 including since admission No falls in past 3 months (0 pts) Confusion or Disorientation No (0 pts) Intoxicated or Sedated No (0 pts) Impaired Gait No (0 pts) Mobility Assist Device Used No (0 pt) Altered Elimination No (0 pt) Score/Fall Risk Level 0 - 2 = Low Risk. Abuse screen: Denies threats or abuse. Denies injuries from another. Nutritional screening: No deficits noted. Tuberculosis screening: No symptoms or risk factors identified. Assessment: 11:11 Reassessment: please see triage assessment. kc6 Vital Signs: 11:06 BP 103 / 74; Pulse 74; Resp 16 S; Temp 97.6(O); Pulse Ox 100% on R/A; Weight 72.57 kg kc6 (R); Height 5 ft. 3 in. (R); 12:30 BP 100 / 66; Pulse 78; Resp 18 S; Pulse Ox 97% on R/A; as6 11:06 Body Mass Index 28.34 (72.57 kg, 160.02 cm) kc6 ED Course: 11:06 Patient arrived in ED. kc6 11:07 Jovanny Wen DO is Attending Physician. ms3 11:07 Triage completed. kc6 11:10 Arm band placed on. kc6 11:11 Patient maintains SpO2 saturation greater than 95% on room air. kc6 11:12 Patient has correct armband on for positive identification. Bed in low position. Call [facility] light in reach. Side rails up X2. Client placed on continuous cardiac and pulse oximetry monitoring. NIBP monitoring applied. 11:17 Geri Albrecht, ROBERTO is Primary Nurse. kc6 11:29 Flu Sent. kc6 11:29 SARS RAPID Sent. kc6 12:07 Hernan Wilkes DO is Referral Physician. ms3 12:30 Provided Education on: follow up. as6 12:30 No provider procedures requiring assistance completed. Patient did not have IV access as6 during this emergency room visit. Administered Medications: 11:29 Drug: Ibuprofen PO 600 mg PO once Route: PO; kc6 12:30 Follow up: Response: No adverse reaction as6 Medication: 12:30 VIS not applicable for this client. as6 Outcome: 12: Discharge ordered by . ms3 12:30 Discharged to home ambulatory, as6 12:30 Condition: stable 12:30 Discharge instructions given to patient, Instructed on discharge instructions, follow up and referral plans. Demonstrated understanding of instructions, follow-up care, 12:31 Patient left the ED. as6 Signatures: Jovanny Wen DO DO ms3 Nico Dean, RN RN as6 Geri Albrecht RN RN kc6
--- NOTE | 2023-07-23 12:10 | EDPHYS ---
Physician Documentation [facility] Name: Walt Velazquez Age: 52 yrs Sex: Male : 1970 Arrival Date: 07/23/2023 Time: 11:05 Bed 6 Private MD: ED Physician Jovanny Wen HPI: 07/23 11:16 This 52 yrs old Male presents to ER via EMS with complaints of Medication ms3 Refill, Pain All Over. 11:16 52-year-old male with past medical history of alcoholism, bipolar 2, hypertension, ms3 Parkinson's, seizures presents to the emergency department via [facility] for body aches, headache that has been ongoing for years. Patient denies alleviating or inciting factors.. Historical: - Allergies: 11:10 Trazodone; kc6 - PMHx: 11:10 Alcoholism; Bipolar II; Hypertensive disorder; Parkinsons; Seizure; kc6 - Immunization history:: Adult Immunizations unknown. - Social history:: Smoking status: unknown. ROS: 11:16 Neck: Negative for injury, pain, and swelling, Cardiovascular: Negative for chest pain, ms3 and palpitations. Respiratory: Negative for shortness of breath, cough, wheezing, and pleuritic chest pain, Abdomen/GI: Negative for abdominal pain, nausea, vomiting, diarrhea, and constipation, MS/Extremity: Negative for injury and deformity, 11:16 Constitutional: Positive for body aches, 11:16 Neuro: Positive for headache, Exam: 11:17 Constitutional: This is a well developed, well nourished patient who is awake, alert, ms3 and in no acute distress. Head/Face: Normocephalic, atraumatic. 11:17 Chest/axilla: Normal chest wall appearance and motion. Nontender with no deformity. Cardiovascular: Regular rate and rhythm with a normal S1 and S2. No gallops, murmurs, or rubs. Normal PMI, no JVD. No pulse deficits. Respiratory: Lungs have equal breath sounds bilaterally, clear to auscultation and percussion. No rales, rhonchi or wheezes noted. No increased work of breathing, no retractions or nasal flaring. Abdomen/GI: Soft, non-tender, with normal bowel sounds. No distension or tympany. No guarding or rebound. No evidence of tenderness throughout. Skin: Warm, dry with normal turgor. Normal color with no rashes, no lesions, and no evidence of cellulitis. 11:17 ENT: Mouth: Poor dentition, Vital Signs: 11:06 BP 103 / 74; Pulse 74; Resp 16 S; Temp 97.6(O); Pulse Ox 100% on R/A; Weight 72.57 kg kc6 (R); Height 5 ft. 3 in. (R); 12:30 BP 100 / 66; Pulse 78; Resp 18 S; Pulse Ox 97% on R/A; as6 11:06 Body Mass Index 28.34 (72.57 kg, 160.02 cm) kc6 MDM: 11:16 Patient medically screened. ms3 11:17 ED course: Differential diagnosis includes COVID versus flu versus myalgias. ms3 12:09 Data reviewed: vital signs, nurses notes, and as a result, I will discharge patient. I ms3 considered the following discharge prescriptions or medication management in the emergency department Medications were administered in the Emergency Department. See MAR. Historians other than the Patient: EMS: [facility]. Care significantly affected by the following chronic conditions: Hypertension, Bipolar II, Parkinson's, Seizures. Counseling: I had a detailed discussion with the patient and/or guardian regarding the historical points, exam findings, and any diagnostic results supporting the discharge/admit diagnosis, lab results, the need for outpatient follow up, to return to the emergency department if symptoms worsen or persist or if there are any questions or concerns that arise at home. Special discussion: I discussed with the patient/guardian in detail that at this point there is no indication for admission to the hospital. It is understood, however, that if the symptoms persist or worsen the patient needs to return immediately for re-evaluation. ED course: Discussed negative flu negative COVID with patient. Patient to follow-up Dr. Wilkes in 2 to 3 days. Patient stands agrees with plan. Questions were answered. Return precautions discussed include worsening symptoms, or any other concerns. 07/23 11:16 Order name: SARS RAPID; Complete Time: 12:07 ms3 07/23 11:16 Order name: Flu; Complete Time: 12:07 ms3 Administered Medications: 11:29 Drug: Ibuprofen PO 600 mg PO once Route: PO; [facility] 12:30 Follow up: Response: No adverse reaction as6 Disposition Summary: 07/23/23 12:09 Discharge Ordered Notes: Location: Home ms3 Condition: Stable ms3 Diagnosis - Myalgia ms3 Followup: ms3 - With: Hernan Wilkes DO - When: 2 - 3 days - Reason: Recheck today's complaints Discharge Instructions: - Discharge Summary Sheet ms3 - Musculoskeletal Pain ms3 Forms: - Medication Reconciliation Form ms3 - Thank You Letter ms3 - Antibiotic Education ms3 - Prescription Opioid Use ms3 - Patient Portal Instructions ms3 - Leadership Thank You Letter ms3 Signatures: Dispatcher [employer] Jovanny Ruggiero DO DO ms3 Geri Albrecht RN RN kc6 Nico Dean RN as6
[2023-07-23 13:09] VITALS: BP 100/66; TEMP 97.6; O2SAT 97
== END ==
LOC: ER 11:05
DX: M79.10 Myalgia, unspecified site (principal); Z11.52 Encounter for screening for COVID-19; F10.20 Alcohol dependence, uncomplicated
CPT/HCPCS: 36415; 87804; 87811

== ENCOUNTER → 2023-07-23 | Emergency (ER) | payer SELFPAY ==
[~2023-07-23] MED LIST changes: +ASPIRIN 81 MG CHEWABLE TABLET ONE; -IBUPROFEN 200 MG TAB PO ONE; +NA CHLORIDE 0.9% 1,000 ML ONE
--- OUTSIDE RECORDS SUMMARY | 2023-07-23 19:58 | XMS REPORT | Continuity of Care Document ---
Author Name Unknown Address [address] [facility] [place] [address] [facility] Address [address] [facility] [place] [address] Care Team Providers Care Food Operations Manager Name Role Phone Pcp-None Primary Care Physician Unavailab HEMANT Adame Attending Clinician Unavailable Hemant Klein MD Attending Clinician [phone] Pan Pinto Attending Clinician Unavailab JESSICA Gallardo Attending Clinician Unavailable Rayray Driscoll MD Attending Clinician [phone] Jessica Prado MD Attending Clinician [phone] Oswald Murphy MD Attending Clinician [phone] DIYA CHOWDHURY Attending Clinician Unavailab Diya Mackey DO Attending Clinician [phone] Fidel Cuellar Attending Clinician Unavailable DIRK YARBROUGH Attending Clinician Unavailable Leticia Rowland Attending Clinician [phone] Dirk Yarbrough MD Attending Clinician [phone] Faye Portillo LVN Attending Clinician [phone] Pia Reddy Attending Clinician [phone] Vinnie Navarro Attending Clinician Unavailable OSWALD MURPHY Admitting Clinician Unavailable Oswlad Murphy MD Admitting Clinician [phone] DIYA CHOWDHURY Admitting Clinician UnavailLeticia Gaytan Admitting Clinician Unavailable JESSICA PRADO Admitting Clinician Unavailable Jessica Prado MD Admitting Clinician [phone] Payers Payer Name Policy Type Policy Number Effective Date Expirati on Date Source [facility] [id number] 2022 00:00:00 Problems Condition Name Condition Details Condition Category Status Onset Date Resolution Date Last Treatment Date Treating Clinician Comments Source Alcohol withdrawal syndrome with complicati on Alcohol withdrawal syndrome with complicati on Disease Active 08-10 00:00: 00 [facility] Type 2 diabetes mellitus with other specified complicati on Type 2 diabetes mellitus with other specified complicati on Disease Active 12-29 00:00: 00 [facility] Dyslipidem ia Dyslipidem ia Disease Active 12-29 00:00: 00 [facility] Chest pain, unspecifie d type Chest pain, unspecifie d type Disease Active 12-28 00:00: 00 [facility] Priapism Priapism Disease Active 2013-06 1-06 00:00: 00 [facility] Allergies, Adverse Reactions, Alerts Allergy Name Allergy Type Status Severity Reaction(s) Onset Date Inactive Date Treating Clinician Comments Source No Known Drug Allergie s DA Active U 4-25 00:00: 00 [facility] No Known Drug Allergie s DA Active U 0 9-16 00:00: 00 [facility] No Known Drug Allergie s DA Active U 0 3-29 00:00: 00 [facility] No Known Drug Allergie s DA Active U 2019-06 2-16 00:00: 00 [facility] No Known Drug Allergie s DA Active U 2019-06 2-15 00:00: 00 [facility] No Known Drug Allergie s DA Active U 2019-06 2-02 00:00: 00 [facility] Trazodon e Propensi ty to adverse reaction s Active Other - See comments 10-06 00:00: 00 [facility] TRAZODON E DRUG INGREDI Active Other-Cmnt 10-06 00:00: 00 [facility] Social History Social Habit Start Date Stop Date Quantity Comments Source History of tobacco use Cigarette Smoker [facility] Exposure to SARS-CoV-2 (event) 2022-11-01 00:00:00 2022-11-11 13:57:00 Not sure [facility] Tobacco use and exposure 2022-08-10 00:00:00 2022-08-10 00:00:00 User of smokeless tobacco [facility] Alcohol intake 2022-08-10 00:00:00 2022-08-10 00:00:00 Current drinker of alcohol (finding) [facility] Tobacco Comment 2022-08-10 00:00:00 2022-08-10 00:00:00 1/2 a pack a day [facility] Sex Assigned At 1970 00:00:00 1970 00:00:00 [facility] Smoking Status Start Date Stop Date Source Smokes tobacco daily 2022-08-10 00:00:00 [facility] Medications Ordered Medication Name Filled Medication Name Start Date Stop Date Current Medication? Ordering Clinician Indication Dosage Frequency Signature (SIG) Comments Components Source NaCl 0.9% (NS) bolus infusion 1,000 mL 11-11 19:45: 00 11-11 20:23 :00 No 1000mL at 999 mL/hr, 1,000 mL, IV Piggyback, ONCE, 1 dose, On Thu11/11/22 at 1445, STAT [facility] multivitami n tablet 1 tablet 08-12 15:00: 00 Yes 1{tbl} 1 tablet, Oral, DAILY, First dose on Thu08/12/22 at 0900, Until Discontinu ed, Routine [facility] foLIC acid (FOLATE) tablet 1 mg 08-12 15:00: 00 Yes 1mg 1 mg, Oral, DAILY, First dose on Thu08/12/22 at 0900, Until Discontinu ed, Routine [facility] foLIC acid 1 mg tablet 08-12 00:00: 00 09-12 04:59 :00 No [id number] 1mg Take 1 tablet by mouth in the morning for 30 days. [facility] oxazepam (SERAX) capsule 15 mg [...] Thu08/13/22 at 0600, Routine [Order 2 End] [facility] thiamine (VITAMIN B1) tablet 100 mg 08-11 16:15: 00 Yes 100mg 100 mg, Oral, DAILY, First dose on Thu08/11/22 at 1015, Until Discontinu ed, Routine [facility] enoxaparin (LOVENOX) injection 40 mg 08-10 23:00: 00 Yes 40mg 40 mg, Subcutaneo us, DAILY, First dose on Thu08/10/22 at 1700, Until Discontinu ed, Routine [facility] NaCl 0.9% (NS) IV infusion 1,000 mL 08-10 15:00: 00 Yes 1000mL at 125 mL/hr, IV Infusion, CONTINUOUS , Starting on Thu08/10/22 at 0900, Until Discontinu ed, Routine [facility] foLIC acid (FOLATE) 5 mg in NaCl 0.9% (NS) piggyback 08-10 15:00: 00 08-11 16:14 :47 No 5mg IV Piggyback, DAILY, First dose on Thu08/10/22 at 0900, Until Discontinu ed, 50 mL [facility] thiamine (VITAMIN B1) 100 mg in NaCl 0.9% (NS) piggyback 08-10 15:00: 00 08-10 16:08 :00 No 100mg IV Piggyback, DAILY, 1 dose, First dose on Thu08/10/22 at 0900, 50 mL [facility] LORazepam (ATIVAN) injection 2 mg 08-10 14:52: 57 Yes 2mg 2 mg, Slow IV Push, Q4HPRN, Starting on 08/10/22 at 0852, Until Discontinu ed, Routine, Seizures, Agitation, Anxiety [facility] Sliding Scale Insulin-Reg ular + Fsbg Testing 08-10 13:30: 00 Yes Subcutaneo us, AC+HS, First dose on Thu08/10/22 at 0730, Until Discontinu ed, Routine [facility] oxazepam (SERAX) capsule 15 mg 08-10 12:08: 05 Yes 15mg 15 mg, Oral, Q4HPRN, Starting on 08/10/22 at 0608, Until Discontinu ed, Routine, Only while awake for DBP equal to or greater than 100, HR equal to or greater than 100. [facility] dextrose 10% (D10W) bolus infusion [...] unable to swallow or has mental changes. [facility] ondansetron (ZOFRAN (PF)) injection 4 mg 08-10 12:02: 53 Yes 4mg 4 mg, Slow IV Push, Q6HPRN, Starting on Thu08/10/22 at 0602, Until Discontinu ed, Routine, Nausea and Vomiting (N/V) [facility] ibuprofen (MOTRIN IB) tablet 200 mg 08-10 12:02: 45 Yes 200mg 200 mg, Oral, Q6HPRN, Starting on Thu08/10/22 at 0602, Until Discontinu ed, Routine, Pain (scale 1-3) [facility] NaCl 0.9% (NS) bolus infusion 1,000 mL 08-10 10:15: 00 08-10 13:00 :00 No 1000mL at 999 mL/hr, 1,000 mL, IV Infusion, ONCE, 1 dose, On Thu08/10/22 at 0415, STAT [facility] LORazepam (ATIVAN) injection 0.5 mg 08-10 09:15: 00 08-10 09:19 :00 No .5mg 0.5 mg, Slow IV Push, ONCE, 1 dose, On Thu08/10/22 at 0315, STAT [facility] LORazepam (ATIVAN) injection 1 mg 08-10 08:00: 00 08-10 07:05 :00 No 1mg 1 mg, Slow IV Push, ONCE NOW, 1 dose, On Thu08/10/22 at 0200, STAT [facility] thiamine (VITAMIN B1) injection 100 mg 08-10 06:45: 00 08-10 06:52 :00 No 100mg 100 mg, Intravenou s, ONCE, 1 dose, On 08/10/22 at 0045, JACIEL [facility] LORazepam (ATIVAN) injection 1 mg 08-10 05:15: 00 08-10 05:22 :00 No 1mg 1 mg, Slow IV Push, ONCE, 1 dose, On 08/09/22 at 2315, STAT [facility] ketorolac (TORADOL) injection 15 mg 2021-06 16:00: 00 04-06 14:50 :00 No 15mg 15 mg, Slow IV Push, ONCE, 1 dose, On 04/06/22 at 1100[facility]AN (PF[facility] 4 mg 2021-06 15:45: 00 04-06 14:50 :00 No 4mg 4 mg, Slow IV Push, ONCE, 1 dose, On 04/06/22 at 1045, [facility] oxazepam (SERAX) capsule 15 mg 12-31 06:28: 17 01-01 06:29 :00 No 15mg 15 mg, Oral, Q12H TAPER, 2 doses, First dose on Thu12/31/21 at 0130, Last dose on Thu12/31/21 at 1330, Routine [facility] multivitami n tablet 12-31 00:00: 00 Yes [id number] 1{tbl} Take 1 tablet by mouth in the morning. [facility] thiamine 100 mg tablet 12-31 00:00: 00 Yes [id number] 100mg Take 1 tablet by mouth in the morning. [facility] aspirin 81 mg chewable tablet 12-31 00:00: 00 Yes [id number] 81mg Take 1 tablet by mouth in the morning. [facility] multivitami n tablet 12-31 00:00: 00 Yes [id number] 1{tbl} Take 1 tablet by mouth in the morning. [facility] thiamine 100 mg tablet 12-31 00:00: 00 Yes [id number] 100mg Take 1 tablet by mouth in the morning. [facility] aspirin 81 mg chewable tablet 2021-0 12-31 00:00: 00 Yes [id number] 81mg Take 1 tablet by mouth in the morning. [facility] multivitami n tablet 2021-0 12-31 00:00: 00 Yes [id number] 1{tbl} Take 1 tablet by mouth in the morning. [facility] thiamine 100 mg tablet 0 12-31 00:00: 00 Yes [id number] 100mg Take 1 tablet by mouth in the morning. [facility] aspirin 81 mg chewable tablet 0 12-31 00:00: 00 Yes [id number] 81mg Take 1 tablet by mouth in the morning. [facility] multivitami n tablet 0 12-31 00:00: 00 Yes [id number] 1{tbl} Take 1 tablet by mouth in the morning. [facility] thiamine 100 mg tablet 2021-0 12-31 00:00: 00 Yes [id number] 100mg Take 1 tablet by mouth in the morning. [facility] aspirin 81 mg chewable tablet 12-31 00:00: 00 Yes [id number] 81mg Take 1 tablet by mouth in the morning. [facility] multivitami n tablet 0 12-31 00:00: 00 Yes [id number] 1{tbl} Take 1 tablet by mouth in the morning. [facility] thiamine 100 mg tablet 0 12-31 00:00: 00 Yes [id number] 100mg Take 1 tablet by mouth in the morning. [facility] aspirin 81 mg chewable tablet 0 12-31 00:00: 00 Yes [id number] 81mg Take 1 tablet by mouth in the morning. [facility] multivitami n tablet 2021-0 12-31 00:00: 00 Yes [id number] 1{tbl} Take 1 tablet by mouth in the morning. [facility] thiamine 100 mg tablet 12-31 00:00: 00 Yes [id number] 100mg Take 1 tablet by mouth in the morning. [facility] aspirin 81 mg chewable tablet 12-31 00:00: 00 Yes [id number] 81mg Take 1 tablet by mouth in the morning. [facility] foLIC acid 1 mg tablet 12-31 00:00: 00 01-31 04:59 :00 No [id number] 1mg Take 1 tablet by mouth in the morning for 30 days. [facility] foLIC acid 1 mg tablet 12-31 00:00: 00 01-31 04:59 :00 No [id number] 1mg Take 1 tablet by mouth in the morning for 30 days. [facility] foLIC acid 1 mg tablet 12-31 00:00: 00 01-31 04:59 :00 No [id number] 1mg Take 1 tablet by mouth in the morning for 30 days. [facility] metFORMIN 500 mg tablet 12-30 00:00: 00 Yes [id number] 500mg Take 1 tablet by mouth in the morning and 1 tablet in the evening. Take with meals. [facility] metFORMIN 500 mg tablet 12-30 00:00: 00 Yes [id number] 500mg Take 1 tablet by mouth in the morning and 1 tablet in the evening. Take with meals. [facility] metFORMIN 500 mg tablet 12-30 00:00: 00 Yes [id number] 500mg Take 1 tablet by mouth in the morning and 1 tablet in the evening. Take with meals. [facility] metFORMIN 500 mg tablet 12-30 00:00: 00 Yes [id number] 500mg Take 1 tablet by mouth in the morning and 1 tablet in the evening. Take with meals. [facility] metFORMIN 500 mg tablet 12-30 00:00: 00 Yes [id number] 500mg Take 1 tablet by mouth in the morning and 1 tablet in the evening. Take with meals. [facility] metFORMIN 500 mg tablet 12-30 00:00: 00 Yes [id number] 500mg Take 1 tablet by mouth in the morning and 1 tablet in the evening. Take with meals. [facility] aspirin chewable tablet 81 mg 12-29 14:00: 00 Yes 81mg 81 mg, Oral, DAILY, First dose on 12/29/21 at 0900, Until Discontinu ed, Routine [facility] sulfur hexafluorid e microsphr (LUMASON) injection 5 mL 12-29 13:45: 00 12-29 13:45 :00 No [id number] 5mL 5 mL, Intravenou s, ONCE, 1 dose, On 12/29/21 at 0845, Routine
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 : STEFANIE GORMAN [facility] enoxaparin (LOVENOX) injection 40 mg 12-29 13:00: 00 Yes 40mg 40 mg, Subcutaneo us, Q24H, First dose on 12/29/21 at 0800, Until Discontinu ed, Routine [facility] Sliding Scale Insulin - Lispro (HumaLOG) + Fsbg Testing 12-29 13:00: 00 Yes Subcutaneo us, TID MEALS+HS, First dose on 12/29/21 at 0800, Until Discontinu ed, Routine [facility] diazePAM (VALIUM) injection 10 mg 12-29 05:30: 00 12-29 04:40 :00 No 10mg 10 mg, Intravenou s, ONCE, 1 dose, On 12/29/21 at 0030, Routine [facility] diazePAM (VALIUM) injection 10 mg 12-29 04:15: 00 12-29 03:17 :00 No 10mg 10 mg, Intravenou s, ONCE, 1 dose, On 12/28/21 at 2315, Routine [facility] diazePAM (VALIUM) injection 5 mg 12-29 03:45: 01 Yes 5mg 5 mg, Intravenou s, QIDPRN, Starting on 12/28/21 at 2245, Until Discontinu ed, Routine, Seizures, Agitation [facility] foLIC acid (FOLATE) tablet 1 mg 12-29 03:45: 00 Yes 1mg 1 mg, Oral, DAILY, First dose on 12/28/21 at 2245, Until Discontinu ed, Routine [facility] thiamine (VITAMIN B1) tablet 100 mg 12-29 03:45: 00 Yes 100mg 100 mg, Oral, DAILY, First dose (after last modificati on) on 12/28/21 at 2245, Until Discontinu ed, Routine [facility] glucagon (GLUCAGEN DIAGNOSTIC KIT) injection 1 mg 12-29 03:42: 19 Yes 1mg 1 mg, Intramuscu lar, PRN, Starting on 12/28/21 at 2242, Until Discontinu ed, JACIEL, Blood Glucose < or = 70 mg/dL and patient is unable to swallow or has mental changes. [facility] dextrose 10% (D10W) bolus infusion [...] blood glucose is < 80 mg/dL, repeat.
[facility] LORazepam (ATIVAN) injection 1 mg 12-29 03:30: 00 12-29 02:32 :00 No 1mg 1 mg, Intravenou s, ONCE, 1 dose, On 12/28/21 at 2230, Routine
Is the medication being used for status epilepticu s? No [facility] oxazepam (SERAX) capsule 15 mg 12-29 00:28: 20 Yes 15mg 15 mg, Oral, Q4HPRN, Starting on 12/28/21 at 1928, Until Discontinu ed, Routine, Only while awake for DBP equal to or greater than 100, HR equal to or greater than 100. [facility] ondansetron (ZOFRAN (PF)) injection 4 mg 12-29 00:23: 47 Yes 4mg 4 mg, Slow IV Push, Q6HPRN, Starting on 12/28/21 at 1923, Until Discontinu ed, Routine, Nausea and Vomiting (N/V) [facility] acetaminoph en (TYLENOL) tablet 650 mg 12-29 00:23: 37 Yes 650mg 650 mg, Oral, Q6HPRN, Starting on 12/28/21 at 1923, Until Discontinu ed, Routine, Pain (scale 1-3), Temp > 38.5 C [facility] chlordiazeP OXIDE (LIBRIUM) capsule 25 mg 12-28 23:15: 00 12-28 23:24 :00 No 25mg 25 mg, Oral, ONCE, 1 dose, On 12/28/21 at 1815, JACIEL [facility] NaCl 0.9% (NS) bolus infusion 2,000 mL 12-28 22:45: 00 12-28 23:18 :00 No 2000mL at 999 mL/hr, 2,000 mL, IV Infusion, ONCE, 1 dose, On 12/28/21 at 1745, JACIEL [facility] LORazepam (ATIVAN) injection 1 mg 12-28 20:45: 00 12-28 20:49 :00 No 1mg 1 mg, Slow IV Push, ONCE, 1 dose, On 12/28/21 at 1545, STAT
Is the medication being used for status epilepticu s? No [facility] acetaminoph en (TYLENOL) 500 mg tablet 10-06 00:00: 00 Yes 500mg Take 1 Tab by mouth every 6 (six) hours as needed for Pain. [facility] acetaminoph en (TYLENOL) 500 mg tablet 10-06 00:00: 00 Yes 500mg Take 1 Tab by mouth every 6 (six) hours as needed for Pain. [facility] acetaminoph en (TYLENOL) 500 mg tablet 10-06 00:00: 00 Yes 500mg Take 1 Tab by mouth every 6 (six) hours as needed for Pain. [facility] acetaminoph en (TYLENOL) 500 mg tablet 10-06 00:00: 00 Yes 500mg Take 1 Tab by mouth every 6 (six) hours as needed for Pain. [facility] acetaminoph en (TYLENOL) 500 mg tablet 10-06 00:00: 00 Yes 500mg Take 1 Tab by mouth every 6 (six) hours as needed for Pain. [facility] acetaminoph en (TYLENOL) 500 mg tablet 10-06 00:00: 00 Yes 500mg Take 1 Tab by mouth every 6 (six) hours as needed for Pain. [facility] Vital Signs Vital Name Observation Time Observation Value Comments S alliglo Systolic blood pressure 2022-11-11 20:31:31 116 mm[Hg] [facility] Diastolic blood pressure 2022-11-11 20:31:31 77 mm[Hg] [facility] Heart rate 2022-11-11 20:31:31 84 /min [facility] Respiratory rate 2022-11-11 20:31:31 12 /min [facility] Oxygen saturation in Arterial blood by Pulse oximetry 2022-11-11 20:31:31 90 /min [facility] Body temperature 2022-11-11 18:49:00 37.11 Theresa [facility] Body height 2022-11-11 18:49:00 160 cm [facility] Body weight 2022-11-11 18:49:00 68.04 kg [facility] BMI 2022-11-11 18:49:00 26.57 kg/m2 [facility] Body temperature 2022-08-11 14:00:00 36.5 Theresa [facility] Systolic blood pressure 2022-08-11 10:00:00 116 mm[Hg] [facility] Diastolic blood pressure 2022-08-11 10:00:00 71 mm[Hg] [facility] Heart rate 2022-08-11 10:00:00 70 /min Unive [facility] Respiratory rate 2022-08-11 10:00:00 16 /min [facility] Body weight 2022-08-11 10:00:00 65.499 kg [facility] BMI 2022-08-11 10:00:00 25.58 kg/m2 [facility] Oxygen saturation in Arterial blood by Pulse oximetry 2022-08-11 10:00:00 100 /min [facility] Body height 2022-08-10 22:12:00 160 cm [facility] Systolic blood pressure 2022-04-06 16:00:00 125 mm[Hg] [facility] Diastolic blood pressure 2022-04-06 16:00:00 75 mm[Hg] [facility] Heart rate 2022-04-06 16:00:00 87 /min [facility] Respiratory rate 2022-04-06 16:00:00 22 /min [facility] Oxygen saturation in Arterial blood by Pulse oximetry 2022-04-06 16:00:00 98 /min [facility] Body temperature 2022-04-06 14:41:00 37 Theresa [facility] Body height 2022-04-06 14:41:00 160 cm [facility] Body weight 2022-04-06 14:41:00 63.504 kg [facility] BMI 2022-04-06 14:41:00 24.80 kg/m2 [facility] Systolic blood pressure 2022-01-20 02:27:00 121 mm[Hg] [facility] Diastolic blood pressure 2022-01-20 02:27:00 75 mm[Hg] [facility] Heart rate 2022-01-20 02:27:00 79 /min [facility] Respiratory rate 2022-01-20 02:27:00 12 /min [facility] Oxygen saturation in Arterial blood by Pulse oximetry 2022-01-20 02:27:00 98 /min [facility] Body temperature 2022-01-19 22:19:00 36.44 Theresa [facility] Body weight 2022-01-19 22:19:00 60.328 kg [facility] BMI 2022-01-19 22:19:00 23.56 kg/m2 [facility] Systolic blood pressure 2021-12-30 20:52:00 134 mm[Hg] [facility] Diastolic blood pressure 2021-12-30 20:52:00 76 mm[Hg] [facility] Heart rate 2021-12-30 20:52:00 67 /min [facility] Body temperature 2021-12-30 20:26:00 36.67 Theresa [facility] Oxygen saturation in Arterial blood by Pulse oximetry 2021-12-30 20:26:00 99 /min [facility] Respiratory rate 2021-12-30 16:21:00 18 /min [facility] Body weight 2021-12-30 08:27:00 60.464 kg [facility] BMI 2021-12-30 08:27:00 23.61 kg/m2 [facility] Body height 2021-12-29 01:29:00 160 cm [facility] Procedures Procedure Date / Time Performed Performing Clinician Source MAGNESIUM 2022-11-11 19:05:00 Hemant Klein [facility] BASIC METABOLIC PANEL (NA, K, CL, CO2, GLUCOSE, BUN, CREATININE, CA) 2022-11-11 19:05:00 Hemant Klein [facility] ETHANOL 2022-11-11 19:05:00 Hemant Klein [facility] CBC WITH DIFF 2022-11-11 19:05:00 Hemant Klein [facility] POCT GLUCOSE (AUTOMATED) 2022-08-11 13:36:00 Arvind Prado [facility] PHOSPHORUS 2022-08-11 10:35:00 Jessica Prado [facility] MAGNESIUM 2022-08-11 10:35:00 Jessica Prado [facility] AMMONIA, PLASMA 2022-08-11 10:35:00 Jessica Prado [facility] COMP. METABOLIC PANEL ([id number]) 2022-08-11 10:35[facility] 2022-08-11 10:35:00 Oswald Murphy [facility] POCT GLUCOSE (AUTOMATED) 2022-08-11 02:15:00 Arvind Prado [facility] POCT GLUCOSE (AUTOMATED) 2022-08-10 23:10:00 Arvind Prado gregoria [facility] POCT GLUCOSE (AUTOMATED) 2022-08-10 18:20:00 Arvind Prado gregoria [facility] POCT GLUCOSE (AUTOMATED) 2022-08-10 14:11:00 Arvind Prado [facility] POCT GLUCOSE (AUTOMATED) 2022-08-10 10:59:00 Gopal Driscoll [facility] COVID-19 (ID NOW RAPID TESTING) 2022-08-10 07:17:00 Rayray Driscoll [facility] LAB ONLY COVID INTERPRETATION 2022-08-10 07:17:00 Rayray Driscoll [facility] HB ECG ROUTINE & RHYTHM STRIP 2022-08-10 06:03:48 Rayray Driscoll [facility] URINALYSIS 2022-08-10 05:46:00 [facility] URINE DRUG (IMMUNOASSAY) - COMPREHENSIVE DRUG SCREEN W/O REFLEX 2022-08-10 05:45:00 Rayray Driscoll [facility] CREATINE KINASE 2022-08-10 05:16:00 [facility] 2022-08-10 05:16:00 Rayray Driscoll [facility] MAGNESIUM 2022-08-10 05:16:00 Rayray Driscoll [facility] TROPONIN I 2022-08-10 05:16:00 [facility] COMP. METABOLIC PANEL ([id number]) 2022-08-10 05:16:00 Rayray Driscoll [facility] ETHANOL 2022-08-10 05:16:00 Rayray Driscoll [facility] CBC WITH DIFF 2022-08-10 05:16:00 Rayray Driscoll [facility] N-TERMINAL PRO-BNP 2022-08-10 05:16:00 Rayray Driscoll [facility] CRITICAL CARE 2022-08-10 04:52:00 Rayray Driscoll [facility] XR CHEST 1 VW 2022-04-06 14:51:[address] [facility] LIPASE 2022-04-06 14:42:00 [facility] TROPONIN I 2022-04-06 14:42:00 Diya Chowdhury Un [facility] COMP. METABOLIC PANEL ([id number]) 2022-04-06 14:42:00 Diya Chowdhury [facility] CBC WITH DIFF 2022-04-06 14:42:[address] [facility] PROTHROMBIN TIME / INR 2022-04-06 14:42:00 Diya Chowdhury [facility] ACTIVATED PARTIAL THRMPLAS NELDA 2022-04-06 14:42:00 Diya Chowdhury [facility] LACTIC ACID WHOLE BLOOD 2022-01-20 00:22:00 Leticia Baldwin [facility] URINE DRUG (IMMUNOASSAY) - COMPREHENSIVE DRUG SCREEN 2022-01-19 23:10:00 Leticia Baldwin [facility] URINALYSIS 2022-01-19 23:10:00 Leticia Baldwin [facility] TROPONIN I 2022-01-19 23:00:00 Leticia Baldwin [facility] COMP. METABOLIC PANEL (40445) 2022-01-19 23:00:00 Leticia Baldwin [facility] LITHIUM 2022-01-19 23:00:00 [facility] 2022-01-19 23:00:00 [facility] CBC WITH DIFF 2022-01-19 23:00:00 Leticia Baldwin [facility] COVID-19 (ID NOW RAPID TESTING) 2022-01-19 23:00:00 Leticia Baldwin [facility] CT HEAD WO CONTRAST 2022-01-19 22:49:00 Leticia Baldwin [facility] XR CHEST 1 VW 2022-01-19 22:41:00 Leticia Baldwin [facility] POCT GLUCOSE (AUTOMATED) 2022-01-19 22:25:00 Leticia Baldwin [facility] POCT GLUCOSE (AUTOMATED) 2021-12-30 21:55:00 Arvind Prado [facility] POCT GLUCOSE (AUTOMATED) 2021-12-30 16:21:00 Arvind Prado [facility] POCT GLUCOSE (AUTOMATED) 2021-12-30 12:30:00 Arvind Prado [facility] HEPATIC FUNCTION PANEL (43706) (ALB,T.PRO,BILI T,BU/BC,ALT,AST,ALK PHOS) 2021-12-30 09:28:00 Maira Gaitan [facility] POCT GLUCOSE (AUTOMATED) 2021-12-30 02:11:00 Arvind Prado [facility] POCT GLUCOSE (AUTOMATED) 2021-12-29 21:41:00 Arvind Prado [facility] POCT GLUCOSE (AUTOMATED) 2021-12-29 16:37:00 Arvind Prado [facility] TRANSTHORACIC ECHO (TTE) COMPLETE W/ CONTRAST 2021-12-29 13:05:00 Jessica Prado [facility] POCT GLUCOSE (AUTOMATED) 2021-12-29 12:41:00 Arvind Prado [facility] TROPONIN I 2021-12-29 09:42:00 [place], Jessica [facility] TROPONIN I 2021-12-29 04:55:00 Jessica Prado [facility] CT HEAD WO CONTRAST 2021-12-28 21:18:22 Poppy Renteria [facility] AMMONIA, PLASMA 2021-12-28 21:00:[address] [facility] COVID-19 (ID NOW RAPID TESTING) 2021-12-28 20:42:00 Pia Renteria [facility] LAB ONLY COVID INTERPRETATION 2021-12-28 20:42:00 Pia Renteria [facility] URINE DRUG (IMMUNOASSAY) - COMPREHENSIVE DRUG SCREEN W/O REFLEX 2021-12-28 20:42:00 Pia Renteria [facility] URINALYSIS 2021-12-28 20:40:00 [facility] 2021-12-28 20:40:00 Corina Renteria [facility] TROPONIN I 2021-12-28 20:40:00 Pia Renteria [facility] THYROID STIMULATING HORMONE 2021-12-28 20:40:00 Jessica Prado [facility] COMP. METABOLIC PANEL (38591) 2021-12-28 20:40:00 Pia Renteria [facility] LIPID PANEL (76253)(TOTAL CHOLESTEROL, TRIGLYCERIDES, HDL) 2021-12-28 20:40:00 Demetrius Langford [facility] ETHANOL 2021-12-28 20:40:00 Demetrius Langford [facility] CBC WITH DIFF 2021-12-28 20:40:00 Pia Renteria [facility] GLYCOSYLATED HEMOGLOBIN (A1C) 2021-12-28 20:40:00 Jessica Prado [facility] PROTHROMBIN TIME / INR 2021-12-28 20:40:00 Lesly Renteria [facility] XR CHEST 1 VW 2021-12-28 20:16:00 Pia Renteria [facility] HB ECG ROUTINE & RHYTHM STRIP 2021-12-28 20:04:59 Pia Renteria [facility] Encounters Start Date/Time End Date/Time Encounter Type Admission Type Attending [facility] Care Department Encounter ID Source 2021-09-17 16:45:00 Inpatient [facility] [id number] [facility] 2020-06-06 16:07:00 Inpatient [facility] [id number] [facility] 2020-06-06 06:20:00 Inpatient [facility] [id number] [facility] 2020-06-05 19:35:00 Inpatient [facility] [id number] [facility] 2020-05-23 19:53:00 Inpatient [facility] [id number] [facility] 2020-05-23 19:53:00 Inpatient [facility] [id number] [facility] 2022-11-11 13:50:00 2022-11-11 16:07:00 Emergency X [facility]ANT [facility] [id number] [facility] 2022-11-11 13:50:00 2022-11-11 16:07:00 Emergency Jessica [facility] [id number] [id number] [id number] [facility] 2022-10-14 20:59:00 2022-10-14 20:59:00 Emergency [facility] [id number] [facility] 2022-10-14 20:59:00 2022-10-14 20:59:00 Emergency Emergency ClareDeborah brotherschloe [facility] [id number] [facility] 2022-08-09 22:59:00 2022-08-11 13:02:00 Outpatient JESSICA GAINES [facility] [id number] [facility] 2022-08-09 22:59:00 2022-08-11 13:02:00 Emergency Rayray Driscoll Jelani Edionwe, [facility] [id number] [id number] 4.2.7.2.686 [id number] [facility] 2022-04-06 09:38:00 2022-04-06 11:42:00 Emergency X DIYA CHOWDHURY [facility] ERT [id number] [facility] 2022-04-06 09:38:00 2022-04-06 11:42:[address] [facility] [id number] [id number] 4.2.7.2.686 [id number] [facility] 2022-03-07 12:38:00 2022-03-07 12:38:00 Emergency [facility] [id number] [facility] 2022-03-07 12:38:00 2022-03-07 12:38:00 Emergency Emergency Fidel Cuellar [facility] [id number] [facility] 2022-01-19 17:18:00 2022-01-19 22:00:00 Emergency X DIRK YARBROUGH [facility] ERT [id number] [facility] 2022-01-19 17:18:00 2022-01-19 22:00:00 Emergency Leticia Baldwin Julio C [facility] [id number] 350.1.13.10 4.2.7.2.686 [id number] [facility] 2021-12-31 00:00:00 2021-12-31 00:00:00 Transition of Care Faye Portillo 1.2840.114 350.1.13.10 4.2.7.2.686 [id number] [facility] 2021-12-28 14:53:00 2021-12-30 17:42:00 Inpatient X JESSICA PRADO [facility] MARGO [id number] [facility] 2021-12-28 14:53:00 2021-12-30 17:42:00 Hospital Encounter Pia Renteria Jelani [facility] [id number] [id number] 4.2.7.2.686 [id number] [facility] 2021-09-17 16:47:00 2021-09-17 16:47:00 Emergency [facility] [id number] [facility] 2020-06-06 16:07:00 2020-06-06 16:07:00 Emergency [facility] [id number] [facility] Results Test Description Test Time Test Comments Results Resul t Comments Source ETHANOL 2022-11-11 19:45:56 ALCOHOL<10mg/dL0 11/11/2022 2:45 PM [facility]<10 Fpycbreq77-587 Toxic>100 Depression of INDUSTRIAL TECHNOLOGIST>400 [facility] 19:41:47* Test Item Value Reference Range Interpretation Comme nts MAGNESIUM (test code = 6606689564) 1.8 mg/dL 1.7-2.4 Lab Interpretation (test cod e = 17456-1) Normal [facility] WITH [id number] 19:25:26* Test Item Value Reference Range Interpretation [...] 33.9 g/dL 31.2-35.0 RDW-SD (test code = 87552-4) 46.0 fL 38.5-51.6 RDW-CV (test code = 788-0) 13.5 % 12.1-15.4 PLT (test code = 777-3) 237 See_Comment [Automated messa ge] The system which generated this result transmitted reference range: 150 - 328 10*3/?L. The reference range was not used to interpret this result as normal/abnormal. MPV (test code = 49611-6) 8.9 fL 9.8-13.0 L NRBC/100 WBC (test code = 9594786087) 0.0 See_Comment [Automated Ravti ssage] The system which generated this result transmitted reference range: 0.0 - 10.0 /100 WBCs. The reference range was not used to interpret this result as normal/abnormal. NRBC x10^3 (test code = 4279864698) See_Comment [Automated [employer] ge] The system which generated this result transmitted reference range: 10*3/?L. The reference range was not used to interpret this result as normal/abnormal. GRAN MAT (NEUT) % (test code = 770-8) 71.2 % IMM GRAN % (test code = 3420650644) 0.30 % LYMPH % (test code = 736-9) 18.2 % MONO % (test code = 5905-5) 8.4 % EOS % (test code = 713-8) 1.0 % BASO % (test code = 706-2) 0.9 % GRAN MAT x10^3(ANC) (test code = 7530813289) 4.86 10*3/uL 1.99-6.95 IMM GRAN x10^3 (test code = 9243458651) 0.00-0.06 LYMPH x10^3 (test code = 731-0) 1.24 10*3/uL 1.09-3.23 MONO x10^3 (test code = 742-7) 0.57 10*3/uL 0.36-1.02 EOS x10^3 (test code = 711-2) 0.07 10*3/uL 0.06-0.53 BASO x10^3 (test code = 704-7) 0.06 10*3/uL 0.01-0.09 Lab Interpretation (test code = 75875-4) [facility] Rflx Cult/Oisfy8357-20-38 22:20:00* Test Item Value Reference Range Interpretation Comme nts Color,Urine (test code = UCOL) Yellow Yellow Clarity,Urine (test code = UCLAR) Clear Clear Ph, Urine (test code = UPH) 7.0 5.0-9.0 N Specific [place],Urine (test code = USG) 1.020 1.005-1.030 N [...] code = ULEU) Negative mg/dL Negative Drug Screen,Mbvwm6635-48-31 22:20:00* Test Item Value Reference Range Interpretation [...] UPROP) Negative Negative Complete Blood Count Auto [id number] 21:21:00* Test Item Value Reference Range Interpretation [...] code = NRBCP) 0 % Comprehensive Metabolic Gomqg0091-26-28 21:21:00* Test Item Value Reference Range Interpretation [...] a race coefficient. Additional information canbe found at:[email or web address]_[email or web address] 5.pdf ([email or web address]) [Automated message] The system [...] = ALP) 134 U/L 46-116 H Ethanol Zstgf8574-26-23 21:21:00* Test Item Value Reference Range Interpretation Comme nts Ethanol (test code = ETOH) < 3 mg/dL The pharmacologi yudy response to blood alcohol levels mayvary from individual to individual. The fatal concentrationhas been reported to be >400mg/dL. POCT GLUCOSE (AUTOMATED)2022-08-11 13:40:35* Test Item Value Reference Range Interpretation Comme nts POCT GLU (test code = 5970253449) 121 mg/dL 70-110 H Lab Interpretation (test cod e = 70883-5) Abnormal [facility] GLUCOSE (AUTOMATED)2022-08-11 02:18:58* Test Item Value Reference Range Interpretation Comme nts POCT GLU (test code = 8456966645) 183 mg/dL 70-110 H Lab Interpretation (test cod e = 11768-7) Abnormal [facility] GLUCOSE (AUTOMATED)2022-08-10 23:16:11* Test Item Value Reference Range Interpretation Comme nts POCT GLU (test code = 1392510397) 176 mg/dL 70-110 H Lab Interpretation (test cod e = 31774-9) Abnormal [facility] GLUCOSE (AUTOMATED)2022-08-10 18:22:51* Test Item Value Reference Range Interpretation Comme nts POCT GLU (test code = 0422386272) 165 mg/dL 70-110 H Lab Interpretation (test cod e = 73389-7) Abnormal [facility] GLUCOSE (AUTOMATED)2022-08-10 14:18:05* Test Item Value Reference Range Interpretation Comme nts POCT GLU (test code = 1747359679) 138 mg/dL 70-110 H Lab Interpretation (test cod e = 59918-4) Abnormal [facility] GLUCOSE (AUTOMATED)2022-08-10 11:01:21* Test Item Value Reference Range Interpretation Comme nts POCT GLU (test code = 1785072488) 143 mg/dL 70-110 H Lab Interpretation (test cod e = 10986-6) [facility]normal [facility] [id number] 06:51:18* Test Item Value Reference Range Interpretation Comme nts TROPONIN I (test code = 3966488773) 0.008 ng/mL <=0.034 JUAN ALBERTO (test code [...] of biotin. Lab Interpretation (test code = 49751-5) Normal [facility] FKO-[id number] 06:47:37* Test Item Value Reference Range Interpretation Comme nts NT-proBNP (test code = 0102142722) 37 pg/mL <=125 JUAN ALBERTO (test code = JUAN ALBERTO) Biotin has been reported to cause a negative bias, interpret results relative to patient's use of biotin. Lab Interpretation (test code = 22608-1) Normal [facility] 06:25:52 ALCOHOL<10mg/dL08/10/2022 12:25 [facility] Pqvkvubn01-587 Toxic>100 Depression of INDUSTRIAL TECHNOLOGIST>400 Fatalities [facility]ortedUnUT [facility] HendersonCOMP. METABOLIC PANEL (06764)2022-08-10 06:19:15* Test Item Value Reference Range Interpretation Comme nts NA (test code = 0736549024) 135 mmol/L 135-145 K (test code = 5517346526) 4.3 mmol/L 3.5-5.0 CL (test code = 8860959754) 98 mmol/L 98-108 CO2 TOTAL (test code = 8735993132) 30 mmol/L 23-31 AGAP (test code = 3480052682) 7 2-16 BUN (test code = 5466240445) 11 mg/dL 7-23 GLUCOSE (test code = 7449495177) 153 mg/dL 70-110 H CREATININE (test code = 2229494628) 0.77 mg/dL 0.60-1.25 TOTAL BILI (test code = 7519756973) 0.9 mg/dL 0.1-1.1 CALCIUM (test code = 3609559914) 10.0 mg/dL 8.6-10.6 T PROTEIN (test code = 4965206613) 7.7 g/dL 6.3-8.2 ALBUMIN (test code = 5878472455) 4.6 g/dL 3.5-5.0 ALK PHOS (test code = 2072750566) 92 U/L 34-122 ALTv (test code = 1742-6) 35 U/L 5-50 AST(SGOT) (test code = 8138708613) 42 U/L 13-40 H eGFR (test code = 1906805620) 106.1 mL/min/1.73m2 JUAN ALBERTO (test code = [...] imaging tests). Lab Interpretation (test code = 16497-1) Abnormal [facility] 06:19:15* Test Item Value Reference Range Interpretation Comme nts MAGNESIUM (test code = 6127006677) 2.2 mg/dL 1.7-2.4 Lab Interpretation (test cod e = 37650-1) Normal [facility] 06:18:55* Test Item Value Reference Range Interpretation Comme nts LIPASE (test code = 8610536671) 18 U/L 0-220 Lab Interpretation (test cod e = 75622-3) Normal [facility] [id number] 06:18:55* Test Item Value Reference Range Interpretation Comme nts CK (test code = 5910914398) 174 U/L 33-194 Lab Interpretation (test cod e = 39158-8) Normal [facility] WITH [id number] 06:02:35* Test Item Value Reference Range Interpretation Comme nts WBC (test code = 6690-2) 7.50 See_Comment [Automated [employer] Other [employer]] The system which generated this result transmitted reference range: 4.20 - 10.70 10*3/?L. The reference range was not used to interpret this result as normal/abnormal. RBC (test code = 789-8) 4.80 See_Comment [Automated [employer]] The system which generated this result transmitted [...] 32.4 g/dL 31.2-35.0 RDW-SD (test code = 66536-3) 50.2 fL 38.5-51.6 RDW-CV (test code = 788-0) 14.3 % 12.1-15.4 PLT (test code = 777-3) 241 See_Comment [Automated messa ge] The system which generated this result transmitted reference range: 150 - 328 10*3/?L. The reference range was not used to interpret this result as normal/abnormal. MPV (test code = 64835-1) 8.6 fL 9.8-13.0 L NRBC/100 WBC (test code = 7174127538) 0.0 See_Comment [Automated Ravti ssage] The system which generated this result transmitted reference range: 0.0 - 10.0 /100 WBCs. The reference range was not used to interpret this result as normal/abnormal. NRBC x10^3 (test code = 3387787999) See_Comment [Automated messa ge] The system which generated this result transmitted reference range: 10*3/?L. The reference range was not used to interpret this result as normal/abnormal. GRAN MAT (NEUT) % (test code = 770-8) 63.9 % IMM GRAN % (test code = 2927825479) 0.50 % LYMPH % (test code = 736-9) 17.6 % MONO % (test code = 5905-5) 16.5 % EOS % (test code = 713-8) 0.7 % BASO % (test code = 706-2) 0.8 % GRAN MAT x10^3(ANC) (test code = 6602606961) 4.79 10*3/uL 1.99-6.95 IMM GRAN x10^3 (test code = 6760061236) 0.04 10*3/uL 0.00-0.06 LYMPH x10^3 (test code = 731-0) 1.32 10*3/uL 1.09-3.23 MONO x10^3 (test code = 742-7) 1.24 10*3/uL 0.36-1.02 H EOS x10^3 (test code = 711-2) 0.05 10*3/uL 0.06-0.53 L BASO x10^3 (test code = 704-7) 0.06 10*3/uL 0.01-0.09 Lab Interpretation (test code = 39029-0) Abnormal [facility] [id number] 15:15:32* Test Item Value Reference Range Interpretation Comments TROPONIN I (test code = 0678627519) 0.007 ng/mL See_Comment [Automated message] The system [...] of biotin. Lab Interpretation (test code = 89107-0) Normal [facility]aPTT2022-10-16 15:08:29* Test Item Value Reference Range Interpretation Comme [facility] APTT Patient (test code = 3173-2) See_Comment [Automated message] The system which generated this result transmitted reference range: 23 - 38 Seconds. The reference range was not used to interpret this result as normal/abnormal. JUAN ALBERTO (test code = JUAN ALBERTO) The [facility] patient population mean normal value for aPTT is 30 seconds. Lab Interpretation (test code = 59391-2) Normal [facility] SouthPROTHROMBIN TIME / [id number] 15:06:28* Test Item Value Reference Range Interpretation Comme [facility] PROTIME PATIENT (test code = 5964-2) See_Comment [Automated Dock[employer] ge] The system which generated this result transmitted reference range: 12.0 - 14.7 Seconds. The reference range was not used to interpret this result as normal/abnormal. INR (test code = 6301-6) Normal INR <1.1; Warfarin Therapeutic range 2.0 to 3.0 or 2.5 to 3.5, depending upon the indications. Lab Interpretation (test code = 50761-4) Normal [facility]. METABOLIC PANEL (04037)2022-04-06 15:03:31* Test Item Value Reference Range Interpretation Comme nts NA (test code = 1976620965) 136 mmol/L 135-145 K (test code = 8987608154) 5.0 mmol/L 3.5-5 CL (test code = 9148475422) 104 mmol/L 98-108 CO2 TOTAL (test code = 7353444580) 21 mmol/L 23-31 L AGAP (test code = 7319346658) 2-16 BUN (test code = 2549939603) 11 mg/dL 7-23 GLUCOSE (test code = 9562635543) 162 mg/dL 70-110 H CREATININE (test code = 1450849318) 0.52 mg/dL 0.6-1.25 L TOTAL BILI (test code = 8593552006) 1.0 mg/dL 0.1-1.1 CALCIUM (test code = 8506232895) 9.3 mg/dL 8.6-10.6 T PROTEIN (test code = 3207917113) 7.4 g/dL 6.3-8.2 ALBUMIN (test code = 4082247508) 4.4 g/dL 3.5-5 ALK PHOS (test code = 0060229597) 134 U/L 34-122 H ALTv (test code = 1742-6) 17 U/L 5-50 AST(SGOT) (test code = 4657364502) 38 U/L 13-40 eGFR (test code = 9153108108) mL/min/1.73m2 JUAN ALBERTO (test code = JUAN [...] imaging tests). Lab Interpretation (test code = 97496-2) Abnormal [facility]IP[facility], [id number] 15:03:31* Test Item Value Reference Range Interpretation Comme nts LIPASE (test code = 7071180196) 29 U/L 0-220 Lab Interpretation (test cod e = 87047-7) Normal [facility] WITH [id number] 14:51:49* Test Item Value Reference Range Interpretation Comme nts WBC (test code = 6690-2) See_Comment [[place]] The system which generated this result transmitted reference range: 4.20 - 10.70 10*3/?L. The reference range was not used to interpret this result as normal/abnormal. RBC (test code = 789-8) See_Comment [Automated [employer]] The system which generated this result transmitted [...] 34.0 g/dL 31.2-35 RDW-SD (test code = 86765-3) 45.9 fL 38.5-51.6 RDW-CV (test code = 788-0) 13.3 % 12.1-15.4 PLT (test code = 777-3) See_Comment [Automated messa ge] The system which generated this result transmitted reference range: 150 - 328 10*3/?L. The reference range was not used to interpret this result as normal/abnormal. MPV (test code = 62352-4) 8.4 fL 9.8-13 L NRBC/100 WBC (test code = 0800210775) See_Comment [Automated Ravti ssage] The system which generated this result transmitted reference range: 0.0 - 10.0 /100 WBCs. The reference range was not used to interpret this result as normal/abnormal. NRBC x10^3 (test code = 7929899990) See_Comment [Automated messa ge] The system which generated this result transmitted reference range: 10*3/?L. The reference range was not used to interpret this result as normal/abnormal. GRAN MAT (NEUT) % (test code = 770-8) 63.0 % IMM GRAN % (test code = 5069623981) 0.50 % LYMPH % (test code = 736-9) 25.2 % MONO % (test code = 5905-5) 9.8 % EOS % (test code = 713-8) 0.3 % BASO % (test code = 706-2) 1.2 % GRAN MAT x10^3(ANC) (test code = 0932428298) 3.73 10*3/uL 1.99-6.95 IMM GRAN x10^3 (test code = 5253178437) 0.03 10*3/uL 0-0.06 LYMPH x10^3 (test code = 731-0) 1.49 10*3/uL 1.09-3.23 MONO x10^3 (test code = 742-7) 0.58 10*3/uL 0.36-1.02 EOS x10^3 (test code = 711-2) 0.06-0.53 L BASO x10^3 (test code = 704-7) 0.07 10*3/uL 0.01-0.09 Lab Interpretation (test code = 17056-2) [facility], Urinalysis Rflx Cult/Ycqud1071-65-04 13:53:00* Test Item Value Reference Range Interpretation Comme nts Color,Urine (test code = UCOL) Yellow Yellow Clarity,Urine (test code = UCLAR) Cloudy Clear A Ph, Urine (test code = UPH) 7.5 5.0-9.0 N Specific [place],Urine (test code = USG) 1.025 1.005-1.030 N [...] = ULEU) Negative mg/dL Negative UF REFLEXDrug Screen,Eegjr0468-27-11 13:53:00* Test Item Value Reference Range Interpretation [...] UPROP) Negative Negative Complete Blood Count Auto [id number] 12:58:00* Test Item Value Reference Range Interpretation [...] = NRBCP) 0 % Coronavirus PCR, COVID19 Vikxp6612-99-77 12:58:00* Test Item Value Reference Range Interpretation Comme nts Coronavirus PCR, COVID19 Rapid (test code = SARSCOV2) Coronavirus PCR, COVID19 Rapid (test code = RTDWDPL41.1) Reference Range: Negative SARS-CoV-2 PCR Result: (test code = SARS-CoV-2 PCR Result:) Negative by RT-PCR COVID-19 Status: AsymptomaticComprehensive Metabolic Pzcux3625-43-05 12:58:00* Test Item Value Reference Range Interpretation [...] = ALP) 144 U/L 46-116 H Ethanol Vdidp9105-87-42 12:58:00* Test Item Value Reference Range Interpretation Comme nts Ethanol (test code = ETOH) < 3 mg/dL The pharmacologi yudy response to blood alcohol levels mayvary from individual to individual. The fatal concentrationhas been reported to be >400mg/dL. IPJGPUB7840-11-06 01:47:56* Test Item Value Reference Range Interpretation Comme nts [place] (test code = 3507216973) 0.7 mmol/L 0.6-1.2 JUAN ALBERTO (test code = JUAN ALBERTO) Toxic Range: ? Greater than 1.2 mmol/L Lab Interpretation (test code = 47426-4) [facility] [id number] 00:26:53* Test Item Value Reference Range Interpretation Comments TROPONIN I (test code = 8314614375) 0.002 ng/mL See_Comment [Automated message] The system [...] of biotin. Lab Interpretation (test code = 75573-1) [facility]2022-[facility]-01 00:18:52 ALCOHOL<10mg/dL01/19/2022 7:18 PM [facility]<10 [id number] Toxic>100 Depression of INDUSTRIAL TECHNOLOGIST>400 Fatalities ReportedCH[facility] – SouthCOMP. METABOLIC PANEL (77294)2022-01-20 00:16:16* Test Item Value Reference Range Interpretation Comme nts NA (test code = 8760250180) 137 mmol/L 135-145 K (test code = 2716767699) 4.5 mmol/L 3.5-5 CL (test code = 3113767397) 103 mmol/L 98-108 CO2 TOTAL (test code = 5798773177) 26 mmol/L 23-31 AGAP (test code = 0988782649) 2-16 BUN (test code = 2510947174) 10 mg/dL 7-23 GLUCOSE (test code = 4698920214) 121 mg/dL 70-110 H CREATININE (test code = 3452960815) 0.65 mg/dL 0.6-1.25 TOTAL BILI (test code = 8597323472) 0.8 mg/dL 0.1-1.1 CALCIUM (test code = 1979449306) 11.4 mg/dL 8.6-10.6 H T PROTEIN (test code = 3050145353) 7.2 g/dL 6.3-8.2 ALBUMIN (test code = 4998235096) 4.6 g/dL 3.5-5 ALK PHOS (test code = 8433685699) 112 U/L 34-122 ALTv (test code = 1742-6) 19 U/L 5-50 AST(SGOT) (test code = 4885538138) 26 U/L 13-40 eGFR (test code = 9178509219) mL/min/1.73m2 JUAN ALBERTO (test code = JUAN [...] imaging tests). Lab Interpretation (test code = 74612-6) Abnormal [facility] WITH [id number] 23:43:54* Test Item Value Reference Range Interpretation Comme nts WBC (test code = 6690-2) See_Comment [Automated [employer]] The system which generated this result transmitted reference range: 4.20 - 10.70 10*3/?L. The reference range was not used to interpret this result as normal/abnormal. RBC (test code = 789-8) See_Comment [[employer]] The system which generated this result transmitted [...] 34.4 g/dL 31.2-35 RDW-SD (test code = 34008-8) 44.0 fL 38.5-51.6 RDW-CV (test code = 788-0) 12.6 % 12.1-15.4 PLT (test code = 777-3) See_Comment [Automated messa ge] The system which generated this result transmitted reference range: 150 - 328 10*3/?L. The reference range was not used to interpret this result as normal/abnormal. MPV (test code = 47781-4) 9.1 fL 9.8-13 L NRBC/100 WBC (test code = 8925186150) See_Comment [Automated me ssage] The system which generated this result transmitted reference range: 0.0 - 10.0 /100 WBCs. The reference range was not used to interpret this result as normal/abnormal. NRBC x10^3 (test code = 3542331987) See_Comment [Automated messa ge] The system which generated this result transmitted reference range: 10*3/?L. The reference range was not used to interpret this result as normal/abnormal. GRAN MAT (NEUT) % (test code = 770-8) 69.8 % IMM GRAN % (test code = 2495192638) 0.40 % LYMPH % (test code = 736-9) 18.0 % MONO % (test code = 5905-5) 10.9 % EOS % (test code = 713-8) 0.1 % BASO % (test code = 706-2) 0.8 % GRAN MAT x10^3(ANC) (test code = 6187772937) 5.58 10*3/uL 1.99-6.95 IMM GRAN x10^3 (test code = 3788909306) 0.03 10*3/uL 0-0.06 LYMPH x10^3 (test code = 731-0) 1.44 10*3/uL 1.09-3.23 MONO x10^3 (test code = 742-7) 0.87 10*3/uL 0.36-1.02 EOS x10^3 (test code = 711-2) 0.06-0.53 L BASO x10^3 (test code = 704-7) 0.06 10*3/uL 0.01-0.09 Lab Interpretation (test code = 50109-3) Abnormal [facility] GLUCOSE (AUTOMATED)2022-01-19 22:27:41* Test Item Value Reference Range Interpretation Comme nts POCT GLU (test code = 8637816308) 123 mg/dL 70-110 H Lab Interpretation (test cod e = 16260-6) Abnormal [facility] GLUCOSE (AUTOMATED)2021-12-30 22:08:16* Test Item Value Reference Range Interpretation Comme nts POCT GLU (test code = 1002432167) 167 mg/dL 70-110 H Lab Interpretation (test cod e = 64989-5) Abnormal [facility] GLUCOSE (AUTOMATED)2021-12-30 16:50:40* Test Item Value Reference Range Interpretation Comme nts POCT GLU (test code = 4807828129) 154 mg/dL 70-110 H Lab Interpretation (test cod e = 33748-7) Abnormal [facility] GLUCOSE (AUTOMATED)2021-12-30 12:38:43* Test Item Value Reference Range Interpretation Comme nts POCT GLU (test code = 9497711411) 164 mg/dL 70-110 H Lab Interpretation (test cod e = 32122-0) Abnormal [facility] GLUCOSE (AUTOMATED)2021-12-30 02:14:58* Test Item Value Reference Range Interpretation Comme nts POCT GLU (test code = 6404620234) 220 mg/dL 70-110 H Lab Interpretation (test cod e = 69861-8) Abnormal [facility] GLUCOSE (AUTOMATED)2021-12-29 21:50:02* Test Item Value Reference Range Interpretation Comme nts POCT GLU (test code = 2537401708) 191 mg/dL 70-110 H Lab Interpretation (test cod e = 30224-7) Abnormal [facility] GLUCOSE (AUTOMATED)2021-12-29 20:15:01* Test Item Value Reference Range Interpretation Comme nts POCT GLU (test code = 2366177817) 163 mg/dL 70-110 H Lab Interpretation (test cod e = 86835-0) [facility]2021-12-29 19:12:22* Test Item Value Reference Range Interpretation Comme nts Height (test code = 3997061960) in Weight (test code = 5874762235) lbs Systolic BP (test code = 7050124176) mmHg Diastolic BP (test code = 7477864883) mmHg Heart Rate (test code = 5822419078) bpm BSA (test code = 8670818748) 1.62 m2 Ao root annulus (test code = 9577351377) 2.45 cm Ao root diam (test code = 4330417548) 2.45 cm Aortic root (test code = 7480072959) 2.45 cm ACS (test code = 5589983460) 1.66 cm LA size (test code = 4276003682) 3.2 cm LVOT diameter (test code = 8547636162) 1.95 cm LVIDD (test code = 5954390735) 3.60 cm IVS (test code = 5244514897) 0.94 cm Interventricular Septum Diastolic Thickness by 2D (test code = 8895198) 0.94 cm LVPWD (test code = 2169857300) 0.80 cm PW (test code = 4578955333) 0.80 cm 0.6-1.1 EF(Teich) (test code = 6542806547) 52.80 % LVIDS (test code = 8370466352) 2.60 cm FS (test code = 1507293583) 27 % EF - 2D (test code = 04471346) 52.80 % LAV(MOD-sp4) (test code = 3356405737) 16.80 mL MV Peak E Jovany (test code = 5435135837) 46.1 cm/s E wave decelartion time (test code = 6856481991) 0.31 s MV Peak A Jovany (test code = 8997874480) 58.1 cm/s E/A ratio (test code = 3082647727) ratio MV E/e' septal (test code = 2422995382) 5.7 cm/s Tapse (test code = 3813416285) 1.60 cm LVOT stroke volume (test code = 4105928868) 52.10 cm3 LVOT peak jovany (test code = 3838735458) 110.6 cm/s LVOT mn grad (test code = 8168588932) mmHg AV LVOT peak gradient (test code = 4948249863) mmHg LVOT peak VTI (test code = 3656750752) 17.4 cm LV V1 mean (test code = 5200745149) 66.10 cm/s Aortic valve mean velocity (test code = 8426059438) 73.0 cm/s Ao peak jovany (test code = 1798726993) 124.6 cm/s Ao VTI (test code = 2873721307) 18.6 cm AV area by cont VTI (test code = 4586289218) 2.8 cm2 AV area peak jovany (test code = 3493731428) 2.7 cm2 Ao max PG (test code = 2687102940) 6.20 mm[Hg] AV peak gradient (test code = 6386574419) mmHg AV valve area (test code = 9719928134) 2.80 cm2 AV mean gradient (test code = 6613636326) mmHg Radiology Study observation (narrative) (test code = 17096-1) JUAN ALBERTO (test code = JUAN ALBERTO) [...] [facility] Lumason [facility] 12:50:31* Test Item Value Reference Range Interpretation Comme nts POCT GLU (test code = 2112415163) 141 mg/dL 70-110 H Lab Interpretation (test cod e = 07547-6) [facility]normal [facility]roponin [id number] 10:38:31* Test Item Value Reference Range Interpretation Comments TROPONIN I (test code = 7349395577) 0.003 ng/mL See_Comment [Automated message] The system [...] of biotin. Lab Interpretation (test code = 69817-6) Normal [facility] SouthLIPID PANEL (80606)(TOTAL CHOLESTEROL, TRIGLYCERIDES, HDL)2021-12-29 05:56:47* Test Item Value Reference Range Interpretation Comme nts CHOL (test code = 5557685721) 168 mg/dL 120-200 HDL (test code = 9642776862) 102 mg/dL See_Comment [Automated [employer]] The system which generated this result transmitted reference range: >=40. The reference range was not used to interpret this result as normal/abnormal. HDLC RATIO (test code = 2678198351) See_Comment [Automated [employer]] The system which generated this result transmitted reference range: <=5.0. The reference range was not used to interpret this result as normal/abnormal. TRIG (test code = 3709224453) 55 mg/dL 30-170 LDL CHOL (test code = 32765-0) 55 mg/dL See_Comment [Automated [employer]] The system which generated this result transmitted reference range: <=160. The reference range was not used to interpret this result as normal/abnormal. VLDL (test code = 4201417936) 11 mg/dL 5-60 Lab Interpretation (test code = 47027-7) [facility]yroid Stimulating Hormone (TSH)2021-12-29 05:40:29* Test Item Value Reference Range Interpretation Comme nts TSH (test code = 5360008833) See_Comment Biotin has been reported to cause a negative bias, interpret results relative to patient's use of biotin. [Automated message] The system which generated this result transmitted reference range: 0.45 - 4.70 mIU/L. The reference range was not used to interpret this result as normal/abnormal. Lab Interpretation (test code = 50168-6) [facility]roponin [id number] 05:34:29* Test Item Value Reference Range Interpretation Comments TROPONIN I (test code = 6732787960) 0.006 ng/mL See_Comment [Automated message] The system [...] of biotin. Lab Interpretation (test code = 12737-7) Normal [facility] SouthETHANOL2022-07-10 04:43:01 ALCOHOL<10mg/dL12/28/2021 11:43 PM [facility] Greater than or equal to 80 mg/dL. NOTE: Whole blood values are approximately 10% to 15% lower than serum and plasma.[facility] Glycosylated Hemoglobin (A1C)2021-12-29 01:51:44* Test Item Value Reference Range Interpretation Comme nts HGB A1C (test code = 4548-4) 6.5 % 4-5.7 H JUAN ALBERTO (test code = JUAN ALBERTO) Reference RangesNormal: <5.7%Prediabetes: 5.7 - 6.4%Diabetes: > 6.5% Lab Interpretation (test code = 17487-5) Abnormal [facility] SouthTROPONIN [id number] 21:26:50* Test Item Value Reference Range Interpretation Comments TROPONIN I (test code = 9206986732) 0.002 ng/mL See_Comment [Automated message] The system [...] of biotin. Lab Interpretation (test code = 62350-5) Normal [facility] SouthN-TERMINAL [id number] 21:23:29* Test Item Value Reference Range Interpretation Comme nts NT-proBNP (test code = 3147731386) 41 pg/mL See_Comment [Automated message] The system which generated this result transmitted reference range: <=125. The reference range was not used to interpret this result as normal/abnormal. JUAN ALBERTO (test code = JUAN ALBERTO) Biotin has been reported to cause a negative bias, interpret results relative to patient's use of biotin. Lab Interpretation (test code = 99068-6) Normal [facility] SouthAMMONIA, [id number] 21:20:38* Test Item Value Reference Range Interpretation Comme nts AMMONIA (test code = 9124931848) 9-33 L Slight hemolysis Lab Interpretation (test code = 66538-7) Abnormal [facility] SouthCOMP. METABOLIC PANEL (58527)2021-12-28 21:08:48* Test Item Value Reference Range Interpretation Comme nts NA (test code = 5419539765) 137 mmol/L 135-145 K (test code = 5456250471) 4.5 mmol/L 3.5-5 CL (test code = 2142510179) 97 mmol/L 98-108 L CO2 TOTAL (test code = 2748485458) 29 mmol/L 23-31 AGAP (test code = 9672104187) 2-16 BUN (test code = 3841676508) 10 mg/dL 7-23 GLUCOSE (test code = 9577226300) 188 mg/dL 70-110 H CREATININE (test code = 7678534767) 0.58 mg/dL 0.6-1.25 L TOTAL BILI (test code = 6933495562) 0.8 mg/dL 0.1-1.1 CALCIUM (test code = 7519471493) 10.5 mg/dL 8.6-10.6 T PROTEIN (test code = 7588186955) 7.6 g/dL 6.3-8.2 ALBUMIN (test code = 4150620582) 4.5 g/dL 3.5-5 ALK PHOS (test code = 3182389594) 107 U/L 34-122 ALTv (test code = 1742-6) 66 U/L 5-50 H AST(SGOT) (test code = 0805354851) 96 U/L 13-40 H eGFR (test code = 9814880794) mL/min/1.73m2 JUAN ALBERTO (test code = JUAN [...] imaging tests). Lab Interpretation (test code = 32409-5) Abnormal [facility] SouthPROTHROMBIN TIME / [id number] 21:01:25* Test Item Value Reference Range Interpretation Comme nts PROTIME PATIENT (test code = 5964-2) See_Comment [Automated [employer]] The system which generated this result transmitted reference range: 12.0 - 14.7 Seconds. The reference range was not used to interpret this result as normal/abnormal. INR (test code = 6301-6) Normal INR <1.1; Warfarin Therapeutic range 2.0 to 3.0 or 2.5 to 3.5, depending upon the indications. Lab Interpretation (test code = 96007-9) Normal [facility] SouthCBC WITH [id number] 20:54:03* Test Item Value Reference Range Interpretation Comme nts WBC (test code = 6690-2) See_Comment [Automated [employer]] The system which generated this result transmitted reference range: 4.20 - 10.70 10*3/?L. The reference range was not used to interpret this result as normal/abnormal. RBC (test code = 789-8) See_Comment [Automated [employer]] The system which generated this result transmitted [...] 34.2 g/dL 31.2-35 RDW-SD (test code = 22419-5) 47.8 fL 38.5-51.6 RDW-CV (test code = 788-0) 13.3 % 12.1-15.4 PLT (test code = 777-3) See_Comment [Automated [employer]] The system which generated this result transmitted reference range: 150 - 328 10*3/?L. The reference range was not used to interpret this result as normal/abnormal. MPV (test code = 53865-0) 8.6 fL 9.8-13 L NRBC/100 WBC (test code = 8724677097) See_Comment [Automated [employer]] The system which generated this result transmitted reference range: 0.0 - 10.0 /100 WBCs. The reference range was not used to interpret this result as normal/abnormal. NRBC x10^3 (test code = 4075150403) See_Comment [Automated [employer]] The system which generated this result transmitted reference range: 10*3/?L. The reference range was not used to interpret this result as normal/abnormal. GRAN MAT (NEUT) % (test code = 770-8) 64.1 % IMM GRAN % (test code = 9047343620) 0.40 % LYMPH % (test code = 736-9) 16.6 % MONO % (test code = 5905-5) 17.2 % EOS % (test code = 713-8) 0.2 % BASO % (test code = 706-2) 1.5 % GRAN MAT x10^3(ANC) (test code = 3768268521) 3.47 10*3/uL 1.99-6.95 IMM GRAN x10^3 (test code = 6361274075) 0-0.06 LYMPH x10^3 (test code = 731-0) 0.90 10*3/uL 1.09-3.23 L MONO x10^3 (test code = 742-7) 0.93 10*3/uL 0.36-1.02 EOS x10^3 (test code = 711-2) 0.06-0.53 L BASO x10^3 (test code = 704-7) 0.08 10*3/uL 0.01-0.09 Lab Interpretation (test code = 43196-7) Abnormal [facility] SouthEthanol [id number] 21:08:00* Test Item Value Reference Range Interpretation Comme nts Ethanol (test code = ETOH) < 3 mg/dL The pharmacologi yudy response to blood alcohol levels mayvary from individual to individual. The fatal concentrationhas been reported to be >400mg/dL. Complete Blood Count Auto [id number] 17:33:00* Test Item Value Reference Range Interpretation [...] = NRBCP) 0 % UA, Urinalysis Rflx Cult/[id number] 17:33:00* Test Item Value Reference Range Interpretation Comme nts Color,Urine (test code = UCOL) Dark Yellow Yellow A Clarity,Urine (test code = UCLAR) Clear Clear Ph, Urine (test code = UPH) 6.5 5.0-9.0 N Specific [place],Urine (test code = USG) 1.015 1.005-1.030 N [...] = ULEU) Trace mg/dL Negative A Urine Jgojitcrcgd0471-03-73 17:33:00* Test Item Value Reference Range Interpretation Comme nts RBC,Urine (test code = URBCUF) None Seen /HPF 0-2 WBC,Urine (test code = UWBCUF) 0-5 /HPF 0-5 Epithelial Cell,Urine (test code = UECUF) 0-5 /HPF 0-5 Casts,Urine (test code = UCASTUF) None Seen /LPF None Seen Bacteria,Urine (test code = UBACTUF) None Seen /hpf None Seen Drug Screen,[id number] 17:33:00* Test Item Value Reference Range Interpretation [...] code = UPROP) Negative Negative Comprehensive Metabolic Pqrym5141-41-22 17:33:00* Test Item Value Reference Range Interpretation [...] 101 U/L 46-116 N Sars-CoV-2/FLU A/B RSV [id number] 17:31:00* Test Item Value Reference Range Interpretation [...] SARS-CoV-2 PCR Result:) Negative by RT-PCR Drug Screen,Ezagz9527-52-33 17:20:00* Test Item Value Reference Range Interpretation [...] UPROP) Negative Negative Complete Blood Count Auto Gzvq9549-73-18 17:14:00* Test Item Value Reference Range Interpretation [...] code = NRBCP) 0 % Comprehensive Metabolic Knjdm5330-49-76 17:14:00* Test Item Value Reference Range Interpretation [...] = ALP) 207 U/L 46-116 H Ethanol [id number] 17:14:00* Test Item Value Reference Range Interpretation Comme nts Ethanol (test code = ETOH) 192 mg/dL Complete Blood Count Auto Asfa4208-06-27 20:20:00* Test Item Value Reference Range Interpretation [...] code = NRBCP) 0 % Comprehensive Metabolic Vtntf6114-08-33 20:20:00* Test Item Value Reference Range Interpretation [...] = ALP) 189 U/L 46-116 H Ethanol Ypoms3426-08-35 20:20:00* Test Item Value Reference Range Interpretation Comme nts Ethanol (test code = ETOH) 10 mg/dL Sars-CoV-2/FLU A/B RSV [id number] 20:20:00* Test Item Value Reference Range Interpretation [...] Negative by Nucleic Acid Amplification UA, Urinalysis Lytilnfsxak7303-60-48 20:20:00* Test Item Value Reference Range Interpretation Comme nts Color,Urine (test code = UCOL) Yellow Y Clarity,Urine (test code = UCLAR) Clear Clear PH,Urine (test code = UPH.XX) 7.0 5.5-8.5 Specific [place],Urine (test code = USG) 1.020 1.005-1.030 N [...] code = ULEU) Negative cells/uL Negative Drug Screen,[id number] 20:20:00* Test Item Value Reference Range Interpretation [...] RESULT TO MICHAELA TRACY CT head/brain wo [facility] [address] [place] [address] Patient Name: Walt Velazquez Medical Record#: [id number] Address: Homeless City/State/Zip: [place] [address]: Vinnie Navarro MD Phone: Insurance: Self Pay /Age/Sex: 1970/50/M Admit/Reg Date: 09/17/[address]: Vinnie Navarro MD Location: [facility]/ PCP: Md KERWIN Flores Date of Service: 09/17/21 Order (s): CT head/brain wo con CPT Code: 47152 Report Number: [id number] Reason for Exam: Altered mental status Location [...] Karen Jay MD 09/17/2021 6:42 PM CDTWorkstation: [id number] Dictated By: Karen Sanders MD 09/17/211824 Signed By: Karen Sanders MD 09/17/211824 TD/TT: 09/17/211824 Tech: [id number] cc: JOSEE; GENESIS* Vinnie Navarro MD; Pcp-Md KERWIN Stiles"
[2023-07-23 20:45] LABS: Absolute Lymphocytes (CBC) 2.4 K/uL (0.7-4.9); Hematocrit 38.5 % (39.6-49.0); Lymphocytes % 29.7 % (15.3-44.8); MCV 93.8 fL (80-100); MPV 6.2 fL (7.6-11.3); Platelets 270 thou/uL (152-406)
[2023-07-23 20:50] LABS: Protime INR 0.91
--- NOTE | 2023-07-23 21:14 | RAD REPORT ---
[facility] DES[facility]2023 8:44 pm CLINICAL HISTORY: CHEST PAIN COMPARISON: Chest Single View dated 07/19/2023; Chest Single View dated 04/17/2023; Chest Single View dated 08/04/2022; Chest Single View dated 06/13/2022 TECHNIQUE: Portable AP view of the chest. FINDINGS: The lungs are clear. No pneumothorax or effusion. The cardiomediastinal contours are unre markable. IMPRESSION: No acute cardiopulmonary process.
[2023-07-23 21:17] LABS: ALT/SGPT 18 U/L (16-61); AST/SGOT 17 U/L (15-37); Albumin 2.9 g/dL (3.4-5.0); Alkaline Phosphatase 109 U/L (45-117); BUN Blood Urea Nitrogen 10 mg/dL (7-18); Bicarbonate 26 mEq/L (21-32); Bilirubin Total 0.2 mg/dL (0.2-1.0); Glomerular Filtration Rate 115 ml/min (=/>90); Glucose Level 158 mg/dL (74-106); Magnesium 2.1 mg/dL (1.6-2.4); NT PRO-BNP 239 pg/mL (<125); Potassium 3.5 mEq/L (3.5-5.1); Protein, Total 6.4 g/dL (6.4-8.2); Sodium Level 139 mEq/L (136-145)
[2023-07-23 21:23] LABS: Bilirubin Direct < 0.1 mg/dL (0-0.2); Bilirubin Indirect, Calculated ND mg/dL (0.2-0.8)
[2023-07-23 21:24] LABS: Barbiturates NEGATIVE (NEGATIVE); Benzodiazepines NEGATIVE (NEGATIVE); Cocaine NEGATIVE (NEGATIVE); METHAMPHETAM NEGATIVE (NEGATIVE); Methadone NEGATIVE (NEGATIVE); Opiates NEGATIVE (NEGATIVE); Phencyclidine NEGATIVE (NEGATIVE); THC Cannibis NEGATIVE (NEGATIVE)
--- NOTE | 2023-07-23 21:25 | EDPHYS ---
Physician Documentation [facility] Name: Walt Velazquez Age: 52 yrs Sex: Male : 1970 Arrival Date: 07/23/2023 Time: 19:52 Bed 17 Private MD: ED Physician Jovanny Wen HPI: 07/23 20:06 This 52 yrs old Male presents to ER via EMS with complaints of chest pain. sb4 20:07 The patient or guardian reports chest pain that is located primarily in the substernal sb4 area. Onset: just prior to arrival. The pain does not radiate. Associated signs and symptoms: Pertinent positives: lower extremity pain, shortness of breath. 20:08 homeless, intoxicated, reports chest pain, sob and and bilateral lower extremity pain. sb4 cannot provide reliable history due to his intoxicated self. states he wants to get better. reports doing crack cocaine. was seen here earlier for pain all over, had negative covid/flu swabs. Historical: - Allergies: 19:59 Trazodone; me1 - PMHx: 19:59 Alcoholism; Bipolar II; Hypertensive disorder; Parkinsons; Seizure; me1 - Immunization history:: Adult Immunizations unknown. - Social history:: Smoking status: Patient reports the use of cigarette tobacco products, smokes one pack cigarettes per day. ROS: 20:08 Constitutional: Negative for fever, chills, and weight loss, sb4 20:08 Cardiovascular: Positive for chest pain, 20:08 Respiratory: Positive for shortness of breath, 20:08 MS/extremity: Positive for pain, of the right leg and left leg, 20:08 All other systems are negative, Exam: 20:08 Head/Face: Normocephalic, atraumatic. Eyes: Extra-ocular motions intact. Periorbital sb4 areas with no swelling, redness, or edema. Cardiovascular: Regular rate and rhythm with a normal S1 and S2. Respiratory: Lungs have equal breath sounds bilaterally, clear to auscultation and percussion. No rales, rhonchi or wheezes noted. No increased work of breathing, no retractions or nasal flaring. Abdomen/GI: Soft, non-tender, no distension. Skin: Warm, dry with normal turgor. Normal color with no rashes, no lesions, and no evidence of cellulitis. MS/ Extremity: Pulses equal, no cyanosis. Neurovascular intact. Full, normal range of motion. Neuro: Awake and alert, GCS 15, oriented to person, place, time, and situation. Motor strength 5/5 in all extremities. Sensory grossly intact. 20:08 Constitutional: The patient appears alert, awake, smells of alcohol, ETOH, unkempt, 20:08 ENT: Dental exam: missing teeth, diffusely, Vital Signs: 19:56 BP 105 / 68; Pulse 100; Resp 18; Temp 98.1(O); Pulse Ox 100% on R/A; Weight 72.57 kg; me1 Height 5 ft. 3 in. ; 20:00 BP 107 / 63; Pulse 90; Resp 18; Pulse Ox 100% on R/A; me1 21:00 BP 104 / 60; Pulse 84; Resp 19; Pulse Ox 99% on R/A; me1 21:57 BP 96 / 45; Pulse 79; Resp 19; Pulse Ox 99% on R/A; me1 19:56 Body Mass Index 28.34 (72.57 kg, 160.02 cm) me1 MDM: 19:57 Patient medically screened. sb4 20:08 Differential diagnosis: acute myocardial infarction, anxiety, coronary artery disease sb4 esophagitis. 20:15 Care significantly affected by the following Social Determinants of Health: Poor access sb4 to healthcare and/or lack of insurance, Inadequate housing, Misuse of alcohol and/or drugs, Unemployment. 21:24 The patient was given aspirin in the Emergency Department. sb4 21:25 Data reviewed: vital signs, nurses notes, lab test result(s), EKG, radiologic studies, sb4 and as a result, I will discharge patient. Consideration of Admission/Observation Escalation of care including admission/observation considered. Counseling: I had a detailed discussion with the patient and/or guardian regarding the historical points, exam findings, and any diagnostic results supporting the discharge/admit diagnosis, lab results, radiology results, the need for outpatient follow up, for definitive care, to return to the emergency department if symptoms worsen or persist or if there are any questions or concerns that arise at home. 07/23 20:05 Order name: Basic Metabolic Panel; Complete Time: 21:23 sb4 07/23 20:05 Order name: CBC with Diff; Complete Time: 20:48 sb4 07/23 20:05 Order name: LFT's; Complete Time: 21:23 sb4 07/23 20:05 Order name: Magnesium; Complete Time: 21:23 sb4 07/23 20:05 Order name: NT PRO-BNP; Complete Time: 21:23 sb4 07/23 20:05 Order name: PT-INR; Complete Time: 20:51 sb4 07/23 20:05 Order name: Troponin HS; Complete Time: 21:23 sb4 07/23 20:08 Order name: ETOH Level; Complete Time: 21:23 sb4 07/23 20:08 Order name: UDS; Complete Time: 21:25 sb4 07/23 20:05 Order name: XRAY Chest (1 view); Complete Time: 21:15 sb4 07/23 20:05 Order name: EKG; Complete Time: 20:05 sb4 07/23 20:05 Order name: Cardiac monitoring; Complete Time: 21:08 sb4 07/23 20:05 Order name: EKG - Nurse/Tech; Complete Time: 21:08 sb4 07/23 20:05 Order name: IV Saline Lock; Complete Time: 20:38 sb4 07/23 20:05 Order name: Labs collected and sent; Complete Time: 20:38 sb4 07/23 20:05 Order name: O2 Per Protocol; Complete Time: 20:38 sb4 07/23 20:05 Order name: O2 Sat Monitoring; Complete Time: 20:38 sb4 EC:01 Rate is 86 beats/min. Rhythm is regular, Normal Sinus Rhythm. MA interval is normal at sb4 176 msec. QRS interval is normal at 76 msec. QT interval is normal at [address] changes noted. Clinical impression: Normal ECG and No evidence of ischemia. Interpreted by me. Reviewed by me. Administered Medications: 20:51 Drug: Aspirin PO Chewable Tablet 324 mg PO once; 81 mg tablets x 4 Route: PO; me1 21:54 Follow up: Response: No adverse reaction me1 20:51 Drug: NS 0.9% IV 1000 ml IV at 1 bolus Per protocol; 1000 mL bolus Route: IV; Rate: 1 me1 bolus; Site: right antecubital; 21:48 Follow up: IV Status: Completed infusion; IV Intake: 1000ml me1 Disposition: 20:28 I was immediately available on-site in the Emergency Department for consultation in the ms3 care of the patient. Disposition Summary: 07/23/23 21:25 Discharge Ordered Notes: Location: Home sb4 Problem: new sb4 Symptoms: have improved sb4 Condition: Stable sb4 Diagnosis - Alcohol abuse with intoxication sb4 Followup: sb4 - With: Emergency Department - When: As needed - Reason: Trouble breathing, Worsening of condition Discharge Instructions: - Discharge Summary Sheet sb4 - Nonspecific Chest Pain, Adult, [id number] sb4 - Alcohol Abuse and Dependence Information, Adult sb4 Forms: - Medication Reconciliation Form sb4 - Thank You Letter sb4 - Antibiotic Education sb4 - Prescription Opioid Use sb4 - Patient Portal Instructions sb4 - Leadership Thank You Letter sb4 Signatures: Dispatcher [employer] EDMS Jovanny Wen, DO ms3 Chiquita Noonan, PA-C PAMercedesC sb4 Dora Bowens, RN RN me1
--- NOTE | 2023-07-23 21:25 | ER ---
Nurse's Notes [facility] Name: Walt Velazquez Age: 52 yrs Sex: Male : 1970 Arrival Date: 07/23/2023 Time: 19:52 Bed 17 Private MD: Diagnosis: Alcohol abuse with intoxication Presentation: 07/23 19:56 Chief complaint: EMS states: toned out for bilateral leg pain and chest pain. Cannot me1 describe pain just states, "something is wrong". Patient smells like alcohol. Coronavirus screen: Vaccine status: Patient reports being unvaccinated. Ebola Screen: No symptoms or risks identified at this time. Initial Sepsis Screen: Does the patient meet any 2 criteria? No. Patient's initial sepsis screen is negative. Does the patient have a suspected source of infection? No. Patient's initial sepsis screen is negative. Risk Assessment: Do you want to hurt yourself or someone else? Patient reports no desire to harm self or others. Onset of symptoms was July 23, 2023. 19:56 Method Of Arrival: [place] [facility] [place] Acuity: LATASHA 4 me1 Triage Assessment: 19:59 General: Appears comfortable, unkempt, well developed, well nourished, Behavior is me1 calm, cooperative, appropriate for age, Reports bilateral leg pain and chest pain. Pain: Complains of pain in bilateral leg and chest pain Pain does not radiate. Neuro: Level of Consciousness is awake, alert, obeys commands, Oriented to person, place, time, situation, Appropriate for age. Cardiovascular: Capillary refill < 3 seconds Patient's skin is warm and dry. Cardiovascular: Reports chest pain. Respiratory: Airway is patent Trachea midline Respiratory effort is even, unlabored, Respiratory pattern is regular, symmetrical. 19:59 Musculoskeletal: Reports pain in BLE. me1 Historical: - Allergies: 19:59 Trazodone; me1 - PMHx: 19:59 Alcoholism; Bipolar II; Hypertensive disorder; Parkinsons; Seizure; me1 - Immunization history:: Adult Immunizations unknown. - Social history:: Smoking status: Patient reports the use of cigarette tobacco products, smokes one pack cigarettes per day. Screenin:02 [facility] ED Fall Risk Assessment (Adult) History of falling in the last 3 months, me1 including since admission No falls in past 3 months (0 pts) Confusion or Disorientation No (0 pts) Intoxicated or Sedated No (0 pts) Impaired Gait No (0 pts) Mobility Assist Device Used No (0 pt) Altered Elimination No (0 pt) Score/Fall Risk Level 0 - 2 = Low Risk Maintained a safe environment, Provided non-skid footwear, Hourly rounding (assess needs \\T\\ fall precautionary measures) done. Abuse screen: Denies threats or abuse. Nutritional screening: No deficits noted. Tuberculosis screening: No symptoms or risk factors identified. Assessment: 20:02 General: See triage assessment. . me1 Vital Signs: 19:56 BP 105 / 68; Pulse 100; Resp 18; Temp 98.1(O); Pulse Ox 100% on R/A; Weight 72.57 kg; me1 Height 5 ft. 3 in. ; 20:00 BP 107 / 63; Pulse 90; Resp 18; Pulse Ox 100% on R/A; me1 21:00 BP 104 / 60; Pulse 84; Resp 19; Pulse Ox 99% on R/A; me1 21:57 BP 96 / 45; Pulse 79; Resp 19; Pulse Ox 99% on R/A; me1 19:56 Body Mass Index 28.34 (72.57 kg, 160.02 cm) me1 ED Course: 19:55 Patient arrived in ED. me1 19:57 Chiquita Noonan PA-C is PHCP. sb4 19:57 Jovanny Wen DO is Attending Physician. sb4 19:59 Triage completed. me1 19:59 Arm band placed on Patient placed in an exam room. me1 20:02 Patient has correct armband on for positive identification. Bed in low position. Call me1 light in reach. Side rails up X2. Provided Education on: POC. Verbalized understanding. . 20:02 No provider procedures requiring assistance completed. me1 20:30 Dora Bowens, RN is Primary Nurse. me1 20:37 Inserted saline lock: 20 gauge in right antecubital area, using aseptic technique. me1 20:38 Basic Metabolic Panel Sent. me1 20:38 CBC with Diff Sent. me1 20:38 LFT's Sent. me1 20:38 Magnesium Sent. me1 20:38 NT PRO-BNP Sent. me1 20:38 PT-INR Sent. me1 20:38 Troponin HS Sent. me1 20:38 ETOH Level Sent. me1 20:45 XRAY Chest (1 view) In Process Unspecified. EDMS 20:51 UDS Sent. me1 21:07 desk monitor on. vk 21:58 IV discontinued, intact, bleeding controlled, No redness/swelling at site. Pressure me1 dressing applied. Administered Medications: 20:51 Drug: Aspirin PO Chewable Tablet 324 mg PO once; 81 mg tablets x 4 Route: PO; me1 21:54 Follow up: Response: No adverse reaction me1 20:51 Drug: NS 0.9% IV 1000 ml IV at 1 bolus Per protocol; 1000 mL bolus Route: IV; Rate: 1 me1 bolus; Site: right antecubital; 21:48 Follow up: IV Status: Completed infusion; IV Intake: 1000ml me1 Medication: 20:02 VIS not applicable for this client. me1 Intake: 21:48 IV: 1000ml; Total: 1000ml. me1 Outcome: 21:25 Discharge ordered by . frandy 21:58 Discharged to home ambulatory, nd1 21:58 Condition: stable 21:58 Discharge instructions given to patient, Instructed on discharge instructions, follow up and referral plans. Demonstrated understanding of instructions, follow-up care, 21:58 Patient left the ED. nd1 Signatures: Dispatcher [employer] Chiquita Friend PA-C PA-C sb4 Dora Bowens RN RN me1 Mae Lizama Corrections: (The following items were deleted from the chart) 20:02 19:59 Derm: Reports pain me1 me1
[2023-07-23 22:16] VITALS: TEMP 98.1
[2023-07-23 22:32] VITALS: BP 96/45; O2SAT 99
--- NOTE | 2023-07-27 15:11 | EKG ---
Test Date: 2023-07-23 Test Time: 21:01:35 Arcade Attendant: KAITY MEASUREMENT RESULTS: Intervals: Rate: 86 GA: 176 QRSD: 76 QT: 350 QTc: 418 [place]: P: 68 GA: 176 QRS: 55 T: 43 INTERPRETIVE STATEMENTS: Normal sinus rhythm Low voltage QRS Septal infarct, age undetermined Abnormal ECG Compared to ECG 07/19/2023 05:48:29 Myocardial infarct finding now present Sinus tachycardia no longer present Electronically Signed On 07-27-23 15:03:02 FOOD MANAGEMENT AIDE by Cristhian Hernandez
== END ==
LOC: ER 19:52
DX: F10.229 Alcohol dependence with intoxication, unspecified (principal)
CPT/HCPCS: 36415; 71045; 80048; 80076; 80307; 82077; 83735; 83880; 84484; 85025; 85610; 93005; J7030

== ENCOUNTER → 2023-07-24 | Emergency (ER) | payer SELFPAY ==
[2011-10-24 19:41] VITALS: BP 138/81
[~2023-07-24] MED LIST changes: -ASPIRIN 81 MG CHEWABLE TABLET ONE
--- OUTSIDE RECORDS SUMMARY | 2023-07-24 15:39 | XMS REPORT | Continuity of Care Document ---
Author Name Unknown Address [address] [facility] [place] [address] [facility] Address [address] [place] [address] Care Team Providers Care Interior Assemblies Installer Name Role Phone Pcp-None Primary Care Physician Unavailab HEMANT Adame Attending Clinician Unavailable Hemant Klein MD Attending Clinician [phone] Pan Pinto Attending Clinician Unavailab JESSICA Gallardo Attending Clinician Unavailable Rayray Driscoll MD Attending Clinician [phone] Jessica Prado MD Attending Clinician [phone] Oswald Murphy MD Attending Clinician [phone] DIYA CHOWDHURY Attending Clinician Unavailab Diya Mackey DO Attending Clinician [phone] Fidel Cuellar Attending Clinician Unavailable DIRK YARBROUGH Attending Clinician Unavailable Leticia Rowland Attending Clinician [phone] Dirk Yarbrough MD Attending Clinician [phone] Faye Portillo LVN Attending Clinician [phone] Pia Reddy Attending Clinician [phone] Vinnie Navarro Attending Clinician Unavailable OSWALD MURPHY Admitting Clinician Unavailable Oswald Murphy MD Admitting Clinician [phone] DIYA CHOWDHURY Admitting Clinician UnavailLeticia Gaytan Admitting Clinician Unavailable JESSICA PRADO Admitting Clinician Unavailable Jessica Prado MD Admitting Clinician [phone] Payers Payer Name Policy Type Policy Number Effective Date Expirati on Date Source [facility] [id number] 2022 00:00:00 Problems Condition Name Condition Details Condition Category Status Onset Date Resolution Date Last Treatment Date Treating Clinician Comments Source Alcohol withdrawal syndrome with complicati on Alcohol withdrawal syndrome with complicati on Disease Active 08-10 00:00: 00 [facility] Type 2 diabetes mellitus with other specified complicati on Type 2 diabetes mellitus with other specified complicati on Disease Active 12-29 00:00: 00 [facility] Dyslipidem ia Dyslipidem ia Disease Active 12-29 00:00: 00 [facility] Chest pain, unspecifie d type Chest pain, unspecifie d type Disease Active 12-28 00:00: 00 [facility] Priapism Priapism Disease Active 2013-06 1-06 00:00: 00 [facility] Allergies, Adverse Reactions, Alerts Allergy Name Allergy Type Status Severity Reaction(s) Onset Date Inactive Date Treating Clinician Comments Source No Known Drug Allergie s DA Active U 4-25 00:00: 00 [facility] No Known Drug Allergie s DA Active U 0 9-16 00:00: 00 [facility] No Known Drug Allergie s DA Active U 0 3-29 00:00: 00 [facility] No Known Drug Allergie s DA Active U 2019-06 2-16 00:00: 00 [facility] No Known Drug Allergie s DA Active U 2019-06 2-15 00:00: 00 [facility] No Known Drug Allergie s DA Active U 2019-06 2-02 00:00: 00 [facility] Trazodon e Propensi ty to adverse reaction s Active Other - See comments 10-06 00:00: 00 [facility] TRAZODON E DRUG INGREDI Active Other-Cmnt 10-06 00:00: 00 [facility] Social History Social Habit Start Date Stop Date Quantity Comments Source History of tobacco use Cigarette Smoker [facility] Exposure to SARS-CoV-2 (event) 2022-11-01 00:00:00 2022-11-11 13:57:00 Not sure [facility] Tobacco use and exposure 2022-08-10 00:00:00 2022-08-10 00:00:00 User of smokeless tobacco [facility] Alcohol intake 2022-08-10 00:00:00 2022-08-10 00:00:00 Current drinker of alcohol (finding) [facility] Tobacco Comment 2022-08-10 00:00:00 2022-08-10 00:00:00 1/2 a pack a day [facility] Sex Ass[birth year] At 1970 00:00:00 1970 00:00:00 [facility] Smoking Status Start Date Stop Date Source Smokes tobacco daily 2022-08-10 00:00:00 [facility] Medications Ordered Medication Name Filled Medication Name Start Date Stop Date Current Medication? Ordering Clinician Indication Dosage Frequency Signature (SIG) Comments Components Source NaCl 0.9% (NS) bolus infusion 1,000 mL 11-11 19:45: 00 11-11 20:23 :00 No 1000mL at 999 mL/hr, 1,000 mL, IV Piggyback, ONCE, 1 dose, On Thu11/11/22 at 1445, STAT [facility] multivitami n tablet 1 tablet 08-12 15:00: 00 Yes 1{tbl} 1 tablet, Oral, DAILY, First dose on Thu08/12/22 at 0900, Until Discontinu ed, Routine [facility] foLIC acid (FOLATE) tablet 1 mg 08-12 15:00: 00 Yes 1mg 1 mg, Oral, DAILY, First dose on Thu08/12/22 at 0900, Until Discontinu ed, Routine [facility] foLIC acid 1 mg tablet 08-12 00:00: 00 09-12 04:59 :00 No [id number] 1mg Take 1 tablet by mouth in the morning for 30 days. [facility] oxazepam (SERAX) capsule 15 mg 08-11 [...] Thu08/13/22 at 0600, Routine [Order 2 End] [facility] thiamine (VITAMIN B1) tablet 100 mg 08-11 16:15: 00 Yes 100mg 100 mg, Oral, DAILY, First dose on Thu08/11/22 at 1015, Until Discontinu ed, Routine [facility] enoxaparin (LOVENOX) injection 40 mg 08-10 23:00: 00 Yes 40mg 40 mg, Subcutaneo us, DAILY, First dose on Thu08/10/22 at 1700, Until Discontinu ed, Routine [facility] NaCl 0.9% (NS) IV infusion 1,000 mL 08-10 15:00: 00 Yes 1000mL at 125 mL/hr, IV Infusion, CONTINUOUS , Starting on Thu08/10/22 at 0900, Until Discontinu ed, Routine [facility] foLIC acid (FOLATE) 5 mg in NaCl 0.9% (NS) piggyback 08-10 15:00: 00 08-11 16:14 :47 No 5mg IV Piggyback, DAILY, First dose on Thu08/10/22 at 0900, Until Discontinu ed, 50 mL [facility] thiamine (VITAMIN B1) 100 mg in NaCl 0.9% (NS) piggyback 08-10 15:00: 00 08-10 16:08 :00 No 100mg IV Piggyback, DAILY, 1 dose, First dose on Thu08/10/22 at 0900, 50 mL [facility] LORazepam (ATIVAN) injection 2 mg 08-10 14:52: 57 Yes 2mg 2 mg, Slow IV Push, Q4HPRN, Starting on 08/10/22 at 0852, Until Discontinu ed, Routine, Seizures, Agitation, Anxiety [facility] Sliding Scale Insulin-Reg ular + Fsbg Testing 08-10 13:30: 00 Yes Subcutaneo us, AC+HS, First dose on Thu08/10/22 at 0730, Until Discontinu ed, Routine [facility] oxazepam (SERAX) capsule 15 mg 08-10 12:08: 05 Yes 15mg 15 mg, Oral, Q4HPRN, Starting on 08/10/22 at 0608, Until Discontinu ed, Routine, Only while awake for DBP equal to or greater than 100, HR equal to or greater than 100. [facility] dextrose 10% (D10W) bolus infusion 250 [...] unable to swallow or has mental changes. [facility] ondansetron (ZOFRAN (PF)) injection 4 mg 08-10 12:02: 53 Yes 4mg 4 mg, Slow IV Push, Q6HPRN, Starting on Thu08/10/22 at 0602, Until Discontinu ed, Routine, Nausea and Vomiting (N/V) [facility] ibuprofen (MOTRIN IB) tablet 200 mg 08-10 12:02: 45 Yes 200mg 200 mg, Oral, Q6HPRN, Starting on Thu08/10/22 at 0602, Until Discontinu ed, Routine, Pain (scale 1-3) [facility] NaCl 0.9% (NS) bolus infusion 1,000 mL 08-10 10:15: 00 08-10 13:00 :00 No 1000mL at 999 mL/hr, 1,000 mL, IV Infusion, ONCE, 1 dose, On Thu08/10/22 at 0415, STAT [facility] LORazepam (ATIVAN) injection 0.5 mg 08-10 09:15: 00 08-10 09:19 :00 No .5mg 0.5 mg, Slow IV Push, ONCE, 1 dose, On Thu08/10/22 at 0315, STAT [facility] LORazepam (ATIVAN) injection 1 mg 08-10 08:00: 00 08-10 07:05 :00 No 1mg 1 mg, Slow IV Push, ONCE NOW, 1 dose, On Thu08/10/22 at 0200, STAT [facility] thiamine (VITAMIN B1) injection 100 mg 08-10 06:45: 00 08-10 06:52 :00 No 100mg 100 mg, Intravenou s, ONCE, 1 dose, On 08/10/22 at 0045, JACIEL [facility] LORazepam (ATIVAN) injection 1 mg 08-10 05:15: 00 08-10 05:22 :00 No 1mg 1 mg, Slow IV Push, ONCE, 1 dose, On 08/09/22 at 2315, STAT [facility] ketorolac (TORADOL) injection 15 mg 2021-06 16:00: 00 04-06 14:50 :00 No 15mg 15 mg, Slow IV Push, ONCE, 1 dose, [facility]06/22 at 1100[facility] (PF[facility] 4 mg 2021-06 15:45: 00 04-06 14:50 :00 No 4mg 4 mg, Slow IV Push, ONCE, 1 dose, On 04/06/22 at 1045, [facility] oxazepam (SERAX) capsule 15 mg 12-31 06:28: 17 01-01 06:29 :00 No 15mg 15 mg, Oral, Q12H TAPER, 2 doses, First dose on Thu12/31/21 at 0130, Last dose on Thu12/31/21 at 1330, Routine [facility] multivitami n tablet 12-31 00:00: 00 Yes [id number] 1{tbl} Take 1 tablet by mouth in the morning. [facility] thiamine 100 mg tablet 12-31 00:00: 00 Yes [id number] 100mg Take 1 tablet by mouth in the morning. [facility] aspirin 81 mg chewable tablet 12-31 00:00: 00 Yes [id number] 81mg Take 1 tablet by mouth in the morning. [facility] multivitami n tablet 12-31 00:00: 00 Yes [id number] 1{tbl} Take 1 tablet by mouth in the morning. [facility] thiamine 100 mg tablet 12-31 00:00: 00 Yes [id number] 100mg Take 1 tablet by mouth in the morning. [facility] aspirin 81 mg chewable tablet 2021-0 12-31 00:00: 00 Yes [id number] 81mg Take 1 tablet by mouth in the morning. [facility] multivitami n tablet 2021-0 12-31 00:00: 00 Yes [id number] 1{tbl} Take 1 tablet by mouth in the morning. [facility] thiamine 100 mg tablet 0 12-31 00:00: 00 Yes [id number] 100mg Take 1 tablet by mouth in the morning. [facility] aspirin 81 mg chewable tablet 0 12-31 00:00: 00 Yes [id number] 81mg Take 1 tablet by mouth in the morning. [facility] multivitami n tablet 0 12-31 00:00: 00 Yes [id number] 1{tbl} Take 1 tablet by mouth in the morning. [facility] thiamine 100 mg tablet 2021-0 12-31 00:00: 00 Yes [id number] 100mg Take 1 tablet by mouth in the morning. [facility] aspirin 81 mg chewable tablet 12-31 00:00: 00 Yes [id number] 81mg Take 1 tablet by mouth in the morning. [facility] multivitami n tablet 0 12-31 00:00: 00 Yes [id number] 1{tbl} Take 1 tablet by mouth in the morning. [facility] thiamine 100 mg tablet 0 12-31 00:00: 00 Yes [id number] 100mg Take 1 tablet by mouth in the morning. [facility] aspirin 81 mg chewable tablet 0 12-31 00:00: 00 Yes [id number] 81mg Take 1 tablet by mouth in the morning. [facility] multivitami n tablet 2021-0 12-31 00:00: 00 Yes [id number] 1{tbl} Take 1 tablet by mouth in the morning. [facility] thiamine 100 mg tablet 12-31 00:00: 00 Yes [id number] 100mg Take 1 tablet by mouth in the morning. [facility] aspirin 81 mg chewable tablet 12-31 00:00: 00 Yes [id number] 81mg Take 1 tablet by mouth in the morning. [facility] foLIC acid 1 mg tablet 12-31 00:00: 00 01-31 04:59 :00 No [id number] 1mg Take 1 tablet by mouth in the morning for 30 days. [facility] foLIC acid 1 mg tablet 12-31 00:00: 00 01-31 04:59 :00 No [id number] 1mg Take 1 tablet by mouth in the morning for 30 days. [facility] foLIC acid 1 mg tablet 12-31 00:00: 00 01-31 04:59 :00 No [id number] 1mg Take 1 tablet by mouth in the morning for 30 days. [facility] metFORMIN 500 mg tablet 12-30 00:00: 00 Yes [id number] 500mg Take 1 tablet by mouth in the morning and 1 tablet in the evening. Take with meals. [facility] metFORMIN 500 mg tablet 12-30 00:00: 00 Yes [id number] 500mg Take 1 tablet by mouth in the morning and 1 tablet in the evening. Take with meals. [facility] metFORMIN 500 mg tablet 12-30 00:00: 00 Yes [id number] 500mg Take 1 tablet by mouth in the morning and 1 tablet in the evening. Take with meals. [facility] metFORMIN 500 mg tablet 12-30 00:00: 00 Yes [id number] 500mg Take 1 tablet by mouth in the morning and 1 tablet in the evening. Take with meals. [facility] metFORMIN 500 mg tablet 12-30 00:00: 00 Yes [id number] 500mg Take 1 tablet by mouth in the morning and 1 tablet in the evening. Take with meals. [facility] metFORMIN 500 mg tablet 12-30 00:00: 00 Yes [id number] 500mg Take 1 tablet by mouth in the morning and 1 tablet in the evening. Take with meals. [facility] aspirin chewable tablet 81 mg 12-29 14:00: 00 Yes 81mg 81 mg, Oral, DAILY, First dose on 12/29/21 at 0900, Until Discontinu ed, Routine [facility] sulfur hexafluorid e microsphr (LUMASON) injection 5 mL 12-29 13:45: 00 12-29 13:45 :00 No [id number] 5mL 5 mL, Intravenou s, ONCE, 1 dose, On 12/29/21 at 0845, Routine
[employer] member approving Restricted medication : STEFANIE GORMAN [facility] enoxaparin (LOVENOX) injection 40 mg 12-29 13:00: 00 Yes 40mg 40 mg, Subcutaneo us, Q24H, First dose on 12/29/21 at 0800, Until Discontinu ed, Routine [facility] Sliding Scale Insulin - Lispro (HumaLOG) + Fsbg Testing 12-29 13:00: 00 Yes Subcutaneo us, TID MEALS+HS, First dose on 12/29/21 at 0800, Until Discontinu ed, Routine [facility] diazePAM (VALIUM) injection 10 mg 12-29 05:30: 00 12-29 04:40 :00 No 10mg 10 mg, Intravenou s, ONCE, 1 dose, On 12/29/21 at 0030, Routine [facility] diazePAM (VALIUM) injection 10 mg 12-29 04:15: 00 12-29 03:17 :00 No 10mg 10 mg, Intravenou s, ONCE, 1 dose, On 12/28/21 at 2315, Routine [facility] diazePAM (VALIUM) injection 5 mg 12-29 03:45: 01 Yes 5mg 5 mg, Intravenou s, QIDPRN, Starting on 12/28/21 at 2245, Until Discontinu ed, Routine, Seizures, Agitation [facility] foLIC acid (FOLATE) tablet 1 mg 12-29 03:45: 00 Yes 1mg 1 mg, Oral, DAILY, First dose on 12/28/21 at 2245, Until Discontinu ed, Routine [facility] thiamine (VITAMIN B1) tablet 100 mg 12-29 03:45: 00 Yes 100mg 100 mg, Oral, DAILY, First dose (after last modificati on) on 12/28/21 at 2245, Until Discontinu ed, Routine [facility] glucagon (GLUCAGEN DIAGNOSTIC KIT) injection 1 mg 12-29 03:42: 19 Yes 1mg 1 mg, Intramuscu lar, PRN, Starting on 12/28/21 at 2242, Until Discontinu ed, JACIEL, Blood Glucose < or = 70 mg/dL and patient is unable to swallow or has mental changes. [facility] dextrose 10% (D10W) bolus infusion 250 [...] blood glucose is < 80 mg/dL, repeat.
[facility] LORazepam (ATIVAN) injection 1 mg 12-29 03:30: 00 12-29 02:32 :00 No 1mg 1 mg, Intravenou s, ONCE, 1 dose, On 12/28/21 at 2230, Routine
Is the medication being used for status epilepticu s? No [facility] oxazepam (SERAX) capsule 15 mg 12-29 00:28: 20 Yes 15mg 15 mg, Oral, Q4HPRN, Starting on 12/28/21 at 1928, Until Discontinu ed, Routine, Only while awake for DBP equal to or greater than 100, HR equal to or greater than 100. [facility] ondansetron (ZOFRAN (PF)) injection 4 mg 12-29 00:23: 47 Yes 4mg 4 mg, Slow IV Push, Q6HPRN, Starting on 12/28/21 at 1923, Until Discontinu ed, Routine, Nausea and Vomiting (N/V) [facility] acetaminoph en (TYLENOL) tablet 650 mg 12-29 00:23: 37 Yes 650mg 650 mg, Oral, Q6HPRN, Starting on 12/28/21 at 1923, Until Discontinu ed, Routine, Pain (scale 1-3), Temp > 38.5 C [facility] chlordiazeP OXIDE (LIBRIUM) capsule 25 mg 12-28 23:15: 00 12-28 23:24 :00 No 25mg 25 mg, Oral, ONCE, 1 dose, On 12/28/21 at 1815, JACIEL [facility] NaCl 0.9% (NS) bolus infusion 2,000 mL 12-28 22:45: 00 12-28 23:18 :00 No 2000mL at 999 mL/hr, 2,000 mL, IV Infusion, ONCE, 1 dose, On 12/28/21 at 1745, JACIEL [facility] LORazepam (ATIVAN) injection 1 mg 12-28 20:45: 00 12-28 20:49 :00 No 1mg 1 mg, Slow IV Push, ONCE, 1 dose, On 12/28/21 at 1545, STAT
Is the medication being used for status epilepticu s? No [facility] acetaminoph en (TYLENOL) 500 mg tablet 10-06 00:00: 00 Yes 500mg Take 1 Tab by mouth every 6 (six) hours as needed for Pain. [facility] acetaminoph en (TYLENOL) 500 mg tablet 10-06 00:00: 00 Yes 500mg Take 1 Tab by mouth every 6 (six) hours as needed for Pain. [facility] acetaminoph en (TYLENOL) 500 mg tablet 10-06 00:00: 00 Yes 500mg Take 1 Tab by mouth every 6 (six) hours as needed for Pain. [facility] acetaminoph en (TYLENOL) 500 mg tablet 10-06 00:00: 00 Yes 500mg Take 1 Tab by mouth every 6 (six) hours as needed for Pain. [facility] acetaminoph en (TYLENOL) 500 mg tablet 10-06 00:00: 00 Yes 500mg Take 1 Tab by mouth every 6 (six) hours as needed for Pain. [facility] acetaminoph en (TYLENOL) 500 mg tablet 10-06 00:00: 00 Yes 500mg Take 1 Tab by mouth every 6 (six) hours as needed for Pain. [facility] Vital Signs Vital Name Observation Time Observation Value Comments S alliglo Systolic blood pressure 2022-11-11 20:31:31 116 mm[Hg] [facility] Diastolic blood pressure 2022-11-11 20:31:31 77 mm[Hg] [facility] Heart rate 2022-11-11 20:31:31 84 /min [facility] Respiratory rate 2022-11-11 20:31:31 12 /min [facility] Oxygen saturation in Arterial blood by Pulse oximetry 2022-11-11 20:31:31 90 /min [facility] Body temperature 2022-11-11 18:49:00 37.11 Theresa [facility] Body height 2022-11-11 18:49:00 160 cm [facility] Body weight 2022-11-11 18:49:00 68.04 kg [facility] BMI 2022-11-11 18:49:00 26.57 kg/m2 [facility] Body temperature 2022-08-11 14:00:00 36.5 Theresa [facility] Systolic blood pressure 2022-08-11 10:00:00 116 mm[Hg] [facility] Diastolic blood pressure 2022-08-11 10:00:00 71 mm[Hg] [facility] Heart rate 2022-08-11 10:00:00 70 /min [facility] Respiratory rate 2022-08-11 10:00:00 16 /min [facility] Body weight 2022-08-11 10:00:00 65.499 kg [facility] BMI 2022-08-11 10:00:00 25.58 kg/m2 [facility] Oxygen saturation in Arterial blood by Pulse oximetry 2022-08-11 10:00:00 100 /min [facility] Body height 2022-08-10 22:12:00 160 cm [facility] Systolic blood pressure 2022-04-06 16:00:00 125 mm[Hg] [facility] Diastolic blood pressure 2022-04-06 16:00:00 75 mm[Hg] [facility] Heart rate 2022-04-06 16:00:00 87 /min [facility] Respiratory rate 2022-04-06 16:00:00 22 /min [facility] Oxygen saturation in Arterial blood by Pulse oximetry 2022-04-06 16:00:00 98 /min [facility] Body temperature 2022-04-06 14:41:00 37 Theresa [facility] Body height 2022-04-06 14:41:00 160 cm [facility] Body weight 2022-04-06 14:41:00 63.504 kg [facility] BMI 2022-04-06 14:41:00 24.80 kg/m2 [facility] Systolic blood pressure 2022-01-20 02:27:00 121 mm[Hg] [facility] Diastolic blood pressure 2022-01-20 02:27:00 75 mm[Hg] [facility] Heart rate 2022-01-20 02:27:00 79 /min [facility] Respiratory rate 2022-01-20 02:27:00 12 /min [facility] Oxygen saturation in Arterial blood by Pulse oximetry 2022-01-20 02:27:00 98 /min [facility] Body temperature 2022-01-19 22:19:00 36.44 Theresa [facility] Body weight 2022-01-19 22:19:00 60.328 kg [facility] BMI 2022-01-19 22:19:00 23.56 kg/m2 [facility] Systolic blood pressure 2021-12-30 20:52:00 134 mm[Hg] [facility] Diastolic blood pressure 2021-12-30 20:52:00 76 mm[Hg] [facility] Heart rate 2021-12-30 20:52:00 67 /min [facility] Body temperature 2021-12-30 20:26:00 36.67 Theresa [facility] Oxygen saturation in Arterial blood by Pulse oximetry 2021-12-30 20:26:00 99 /min [facility] Respiratory rate 2021-12-30 16:21:00 18 /min [facility] Body weight 2021-12-30 08:27:00 60.464 kg [facility] BMI 2021-12-30 08:27:00 23.61 kg/m2 [facility] Body height 2021-12-29 01:29:00 160 cm [facility] Procedures Procedure Date / Time Performed Performing Clinician Source MAGNESIUM 2022-11-11 19:05:00 Hemant Klein [facility] BASIC METABOLIC PANEL (NA, K, CL, CO2, GLUCOSE, BUN, CREATININE, CA) 2022-11-11 19:05:00 Hemant Klein [facility] ETHANOL 2022-11-11 19:05:00 Hemant Klein [facility] CBC WITH DIFF 2022-11-11 19:05:00 Hemant Klein [facility] POCT GLUCOSE (AUTOMATED) 2022-08-11 13:36:00 Arvind Prado [facility] PHOSPHORUS 2022-08-11 10:35:00 Jessica Prado [facility] MAGNESIUM 2022-08-11 10:35:00 Jessica Prado [facility] AMMONIA, PLASMA 2022-08-11 10:35:00 Jessica Prado [facility] COMP. METABOLIC PANEL ([id number]) 2022-08-11 10:35[facility] 2022-08-11 10:35:00 Oswald Murphy [facility] POCT GLUCOSE (AUTOMATED) 2022-08-11 02:15:00 Arvind Prado [facility] POCT GLUCOSE (AUTOMATED) 2022-08-10 23:10:00 Arvind Prado gregoria [facility] POCT GLUCOSE (AUTOMATED) 2022-08-10 18:20:00 Arvind Prado gregoria [facility] POCT GLUCOSE (AUTOMATED) 2022-08-10 14:11:[address] [facility] POCT GLUCOSE (AUTOMATED) 2022-08-10 10:59:00 Gopal Driscoll [facility] COVID-19 (ID NOW RAPID TESTING) 2022-08-10 07:17:00 Rayray Driscoll [facility] LAB ONLY COVID INTERPRETATION 2022-08-10 07:17:00 Rayray Driscoll [facility] HB ECG ROUTINE & RHYTHM STRIP 2022-08-10 06:03:48 Rayray Driscoll [facility] URINALYSIS 2022-08-10 05:46:00 [facility] URINE DRUG (IMMUNOASSAY) - COMPREHENSIVE DRUG SCREEN W/O REFLEX 2022-08-10 05:45:00 Rayray Driscoll [facility] CREATINE KINASE 2022-08-10 05:16:00 [facility] 2022-08-10 05:16:00 Rayray Driscoll [facility] MAGNESIUM 2022-08-10 05:16:00 Rayray Driscoll [facility] TROPONIN I 2022-08-10 05:16:00 [facility] COMP. METABOLIC PANEL ([id number]) 2022-08-10 05:16:00 Rayray Driscoll [facility] ETHANOL 2022-08-10 05:16:00 Rayray Driscoll [facility] CBC WITH DIFF 2022-08-10 05:16:00 Rayray Driscoll [facility] N-TERMINAL PRO-BNP 2022-08-10 05:16:00 Rayray Driscoll [facility] CRITICAL CARE 2022-08-10 04:52:00 Rayray Driscoll [facility] XR CHEST 1 VW 2022-04-06 14:51:50 Diya Chowdhury [facility] LIPASE 2022-04-06 14:42:00 [facility] 2022-04-06 14:42:00 Diya Chowdhury Un [facility] COMP. METABOLIC PANEL ([id number]) 2022-04-06 14:42:00 Diya Chowdhury [facility] CBC WITH DIFF 2022-04-06 14:42:00 Diya Chowdhury [facility] PROTHROMBIN TIME / INR 2022-04-06 14:42:00 Diya Chowdhury [facility] ACTIVATED PARTIAL THRMPLAS NELDA 2022-04-06 14:42:00 Diya Chowdhury [facility] LACTIC ACID WHOLE BLOOD 2022-01-20 00:22:00 Leticia Baldwin [facility] URINE DRUG (IMMUNOASSAY) - COMPREHENSIVE DRUG SCREEN 2022-01-19 23:10:00 Leticia Baldwin [facility] URINALYSIS 2022-01-19 23:10:00 Leticia Baldwin [facility] TROPONIN I 2022-01-19 23:00:00 Leticia Baldwin [facility] COMP. METABOLIC PANEL (08389) 2022-01-19 23:00:00 Leticia Baldwin [facility] LITHIUM 2022-01-19 23:00:00 [facility] 2022-01-19 23:00:00 Leticia [facility] CBC WITH DIFF 2022-01-19 23:00:00 Leticia Baldwin [facility] COVID-19 (ID NOW RAPID TESTING) 2022-01-19 23:00:00 Leticia Baldwin [facility] CT HEAD WO CONTRAST 2022-01-19 22:49:00 Leticia Baldwin [facility] XR CHEST 1 VW 2022-01-19 22:41:00 Leticia Baldwin [facility] POCT GLUCOSE (AUTOMATED) 2022-01-19 22:25:00 Leticia Baldwin [facility] POCT GLUCOSE (AUTOMATED) 2021-12-30 21:55:00 Arvind Prado [facility] POCT GLUCOSE (AUTOMATED) 2021-12-30 16:21:00 Arvind Prado [facility] POCT GLUCOSE (AUTOMATED) 2021-12-30 12:30:00 Arvind Prado [facility] HEPATIC FUNCTION PANEL (06308) (ALB,T.PRO,BILI T,BU/BC,ALT,AST,ALK PHOS) 2021-12-30 09:28:00 Maira Gaitan [facility] POCT GLUCOSE (AUTOMATED) 2021-12-30 02:11:00 Arvind Prado [facility] POCT GLUCOSE (AUTOMATED) 2021-12-29 21:41:00 Arvind Prado [facility] POCT GLUCOSE (AUTOMATED) 2021-12-29 16:37:00 Arvind Prado [facility] TRANSTHORACIC ECHO (TTE) COMPLETE W/ CONTRAST 2021-12-29 13:05:00 Jessica Prado [facility] POCT GLUCOSE (AUTOMATED) 2021-12-29 12:41:00 Arvind Prado [facility] TROPONIN I 2021-12-29 09:42:00 [place], Jessica [facility] TROPONIN I 2021-12-29 04:55:00 Jessica Prado [facility] CT HEAD WO CONTRAST 2021-12-28 21:18:22 Poppy Renteria [facility] AMMONIA, PLASMA 2021-12-28 21:00:00 Pia Renteria [facility] COVID-19 (ID NOW RAPID TESTING) 2021-12-28 20:42:00 Pia Renteria [facility] LAB ONLY COVID INTERPRETATION 2021-12-28 20:42:00 Pia Renteria [facility] URINE DRUG (IMMUNOASSAY) - COMPREHENSIVE DRUG SCREEN W/O REFLEX 2021-12-28 20:42:00 Pia Renteria [facility] URINALYSIS 2021-12-28 20:40[facility] 2021-12-28 20:40:00 Corina Renteria [facility] TROPONIN I 2021-12-28 20:40:00 Pia Renteria [facility] THYROID STIMULATING HORMONE 2021-12-28 20:40:00 Jessica Prado [facility] COMP. METABOLIC PANEL (42152) 2021-12-28 20:40:00 Pia Renteria [facility] LIPID PANEL (46468)(TOTAL CHOLESTEROL, TRIGLYCERIDES, HDL) 2021-12-28 20:40:00 Demetrius Langford [facility] ETHANOL 2021-12-28 20:40:00 Demetrius Langford [facility] CBC WITH DIFF 2021-12-28 20:40:00 Pia Renteria [facility] GLYCOSYLATED HEMOGLOBIN (A1C) 2021-12-28 20:40:00 Jessica Prado [facility] PROTHROMBIN TIME / INR 2021-12-28 20:40:00 Lesly Renteria [facility] XR CHEST 1 VW 2021-12-28 20:16:00 Pia Renteria [facility] HB ECG ROUTINE & RHYTHM STRIP 2021-12-28 20:04:59 Pia Renteria [facility] Encounters Start Date/Time End Date/Time Encounter Type Admission Type Attending [facility] Care Department Encounter ID Source 2021-09-17 16:45:[address] [facility] [id number] [facility] 2020-06-06 16:07:[address] [facility] [id number] [facility] 2020-06-06 06:20:[address] [facility] [id number] [facility] 2020-06-05 19:35:[address] [facility] [id number] [facility] 2020-05-23 19:53:[address] [facility] [id number] [facility] 2020-05-23 19:53:[address] [facility] [id number] [facility] 2022-11-11 13:50:00 2022-11-11 16:07:00 Emergency X HEMANT KLEIN [facility] [id number] [facility] 2022-11-11 13:50:00 2022-11-11 16:07:00 Emergency Jessica [facility] [id number] 350.1.13.10 4.2.7.2.686 [id number] [facility] 2022-10-14 20:59:00 2022-10-14 20:59:[address] [facility] [id number] [address] [facility] 2022-10-14 20:59:00 2022-10-14 20:59:00 Emergency Emergency ClareDeborah brotherschloe [facility] [id number] [address] [facility] 2022-08-09 22:59:00 2022-08-11 13:02:00 Outpatient JESSICA GAINES [facility] [id number] [facility] 2022-08-09 22:59:00 2022-08-11 13:02:00 Emergency Rayray Driscoll Jelani Edionwe, [facility] [id number] 350.1.13.10 4.2.7.2.686 [id number] [facility] 2022-04-06 09:38:00 2022-04-06 11:42:00 Emergency X DIYA CHOWDHURY [facility] ERT [id number] [facility] 2022-04-06 09:38:00 2022-04-06 11:42:00 Emergency Diya Chowdhury [facility] [id number] 350.1.13.10 4.2.7.2.686 [id number] [facility] 2022-03-07 12:38:00 2022-03-07 12:38:[address] [facility] [id number] [address] [facility] 2022-03-07 12:38:00 2022-03-07 12:38:00 Emergency Emergency Fidel Cuellar [facility] [id number] [address] [facility] 2022-01-19 17:18:00 2022-01-19 22:00:00 Emergency X DIRK YARBROUGH [facility] ERT [id number] [facility] 2022-01-19 17:18:00 2022-01-19 22:00:00 Emergency Leticia Baldwin Julio C [facility] 1.2840.114 350.1.13.10 4.2.7.2.686 [id number] [facility] 2021-12-31 00:00:00 2021-12-31 00:00:00 Transition of Care Faye Portillo 1.2840.114 350.1.13.10 4.2.7.2.686 [id number] [facility] 2021-12-28 14:53:00 2021-12-30 17:42:00 Inpatient X JESSICA PRADO [facility] MARGO [id number] [facility] 2021-12-28 14:53:00 2021-12-30 17:42:00 Hospital Encounter Pia Renteria Jelani [facility] [id number] 350.1.13.10 4.2.7.2.686 [id number] [facility] 2021-09-17 16:47:00 2021-09-17 16:47:[address] [facility] [id number] [address] [facility] 2020-06-06 16:07:00 2020-06-06 16:07:[address] [facility] [id number] [facility] Results Test Description Test Time Test Comments Results Resul t Comments Source ETHANOL 2022-11-11 19:45:56 ALCOHOL<10mg/dL0 11/11/2022 2:45 PM [facility]<10 Swptulfu07-938 Toxic>100 Depression of AIRCRAFT MECHANIC STRUCTURES>[address] [facility] 19:41:47* Test Item Value Reference Range Interpretation Comme nts MAGNESIUM (test code = 1508629007) 1.8 mg/dL 1.7-2.4 Lab Interpretation (test cod e = 26592-3) Normal [facility] WITH [id number] 19:25:26* Test Item Value Reference Range Interpretation [...] 33.9 g/dL 31.2-35.0 RDW-SD (test code = 82159-1) 46.0 fL 38.5-51.6 RDW-CV (test code = 788-0) 13.5 % 12.1-15.4 PLT (test code = 777-3) 237 See_Comment [Automated messa ge] The system which generated this result transmitted reference range: 150 - 328 10*3/?L. The reference range was not used to interpret this result as normal/abnormal. MPV (test code = 14880-5) 8.9 fL 9.8-13.0 L NRBC/100 WBC (test code = 8824981513) 0.0 See_Comment [Automated [employer] ssage] The system which generated this result transmitted reference range: 0.0 - 10.0 /100 WBCs. The reference range was not used to interpret this result as normal/abnormal. NRBC x10^3 (test code = 0424357805) See_Comment [Automated [employer] ge] The system which generated this result transmitted reference range: 10*3/?L. The reference range was not used to interpret this result as normal/abnormal. GRAN MAT (NEUT) % (test code = 770-8) 71.2 % IMM GRAN % (test code = 4544638226) 0.30 % LYMPH % (test code = 736-9) 18.2 % MONO % (test code = 5905-5) 8.4 % EOS % (test code = 713-8) 1.0 % BASO % (test code = 706-2) 0.9 % GRAN MAT x10^3(ANC) (test code = 6306928384) 4.86 10*3/uL 1.99-6.95 IMM GRAN x10^3 (test code = 9485776588) 0.00-0.06 LYMPH x10^3 (test code = 731-0) 1.24 10*3/uL 1.09-3.23 MONO x10^3 (test code = 742-7) 0.57 10*3/uL 0.36-1.02 EOS x10^3 (test code = 711-2) 0.07 10*3/uL 0.06-0.53 BASO x10^3 (test code = 704-7) 0.06 10*3/uL 0.01-0.09 Lab Interpretation (test code = 25993-3) [facility] Rflx Cult/Kkucg5423-16-58 22:20:00* Test Item Value Reference Range Interpretation Comme nts Color,Urine (test code = UCOL) Yellow Yellow Clarity,Urine (test code = UCLAR) Clear Clear Ph, Urine (test code = UPH) 7.0 5.0-9.0 N Specific [place],Urine (test code = USG) 1.020 1.005-1.030 N [...] code = ULEU) Negative mg/dL Negative Drug Screen,Cxwdp8985-85-10 22:20:00* Test Item Value Reference Range Interpretation [...] UPROP) Negative Negative Complete Blood Count Auto [id number] 21:21:00* Test Item Value Reference Range Interpretation [...] code = NRBCP) 0 % Comprehensive Metabolic Yqpbq3086-63-47 21:21:00* Test Item Value Reference Range Interpretation [...] a race coefficient. Additional information canbe found at:[email or web address]_[email or web address] 5.pdf ([email or web address]) [Automated message] The system [...] = ALP) 134 U/L 46-116 H Ethanol [id number] 21:21:00* Test Item Value Reference Range Interpretation Comme nts Ethanol (test code = ETOH) < 3 mg/dL The pharmacologi yudy response to blood alcohol levels mayvary from individual to individual. The fatal concentrationhas been reported to be >400mg/dL. POCT GLUCOSE (AUTOMATED)2022-08-11 13:40:35* Test Item Value Reference Range Interpretation Comme nts POCT GLU (test code = 8754164628) 121 mg/dL 70-110 H Lab Interpretation (test cod e = 58310-4) Abnormal [facility] GLUCOSE (AUTOMATED)2022-08-11 02:18:58* Test Item Value Reference Range Interpretation Comme nts POCT GLU (test code = 2588342144) 183 mg/dL 70-110 H Lab Interpretation (test cod e = 87042-9) Abnormal [facility] GLUCOSE (AUTOMATED)2022-08-10 23:16:11* Test Item Value Reference Range Interpretation Comme nts POCT GLU (test code = 1469385587) 176 mg/dL 70-110 H Lab Interpretation (test cod e = 79205-7) Abnormal [facility] GLUCOSE (AUTOMATED)2022-08-10 18:22:51* Test Item Value Reference Range Interpretation Comme nts POCT GLU (test code = 0737444870) 165 mg/dL 70-110 H Lab Interpretation (test cod e = 74661-7) Abnormal [facility] GLUCOSE (AUTOMATED)2022-08-10 14:18:05* Test Item Value Reference Range Interpretation Comme nts POCT GLU (test code = 4993932616) 138 mg/dL 70-110 H Lab Interpretation (test cod e = 61038-9) Abnormal [facility] GLUCOSE (AUTOMATED)2022-08-10 11:01:21* Test Item Value Reference Range Interpretation Comme nts POCT GLU (test code = 4134216174) 143 mg/dL 70-110 H Lab Interpretation (test cod e = 74935-2) [facility] [id number] 06:51:18* Test Item Value Reference Range Interpretation Comme nts TROPONIN I (test code = 4484098051) 0.008 ng/mL <=0.034 JUAN ALBERTO (test code [...] of biotin. Lab Interpretation (test code = 39708-6) Normal [facility] UPS-[id number] 06:47:37* Test Item Value Reference Range Interpretation Comme nts NT-proBNP (test code = 0441881717) 37 pg/mL <=125 JUAN ALBERTO (test code = JUAN ALBERTO) Biotin has been reported to cause a negative bias, interpret results relative to patient's use of biotin. Lab Interpretation (test code = 79888-6) Normal [facility]ETH[facility]OL2023-[facility]-19 06:25:52 ALCOHOL<10mg/dL08/10/2022 12:25 [facility] Razzgmnq74-333 Toxic>100 Depression of AIRCRAFT MECHANIC STRUCTURES>400 [facility]COMP. METABOLIC PANEL (12560)2022-08-10 06:19:15* Test Item Value Reference Range Interpretation Comme nts NA (test code = 8650932027) 135 mmol/L 135-145 K (test code = 4943021306) 4.3 mmol/L 3.5-5.0 CL (test code = 7530470301) 98 mmol/L 98-108 CO2 TOTAL (test code = 0826126449) 30 mmol/L 23-31 AGAP (test code = 4579622647) 7 2-16 BUN (test code = 6924438346) 11 mg/dL 7-23 GLUCOSE (test code = 1455420921) 153 mg/dL 70-110 H CREATININE (test code = 0690983094) 0.77 mg/dL 0.60-1.25 TOTAL BILI (test code = 9492849206) 0.9 mg/dL 0.1-1.1 CALCIUM (test code = 8303872510) 10.0 mg/dL 8.6-10.6 T PROTEIN (test code = 1836776321) 7.7 g/dL 6.3-8.2 ALBUMIN (test code = 7925247558) 4.6 g/dL 3.5-5.0 ALK PHOS (test code = 6801925665) 92 U/L 34-122 ALTv (test code = 1742-6) 35 U/L 5-50 AST(SGOT) (test code = 8068077010) 42 U/L 13-40 H eGFR (test code = 7069880143) 106.1 mL/min/1.73m2 JUAN ALBERTO (test code = [...] imaging tests). Lab Interpretation (test code = 13055-7) [facility]normal [facility] 06:19:15* Test Item Value Reference Range Interpretation Comme nts MAGNESIUM (test code = 0720888013) 2.2 mg/dL 1.7-2.4 Lab Interpretation (test cod e = 91068-9) Normal [facility]20[facility]-19 06:18:55* Test Item Value Reference Range Interpretation Comme nts LIPASE (test code = 9089857919) 18 U/L 0-220 Lab Interpretation (test cod e = 50116-1) Normal [facility] CenterCREATINE [id number] 06:18:55* Test Item Value Reference Range Interpretation Comme nts CK (test code = 6002825066) 174 U/L 33-194 Lab Interpretation (test cod e = 69585-0) Normal [facility] Center[facility] WITH [id number] 06:02:35* Test Item Value Reference Range Interpretation Comme nts WBC (test code = 6690-2) 7.50 See_Comment [Automated [employer]] The system which generated this result transmitted reference range: 4.20 - 10.70 10*3/?L. The reference range was not used to interpret this result as normal/abnormal. RBC (test code = 789-8) 4.80 See_Comment [Automated [employer]] The system which generated this result transmitted [...] 32.4 g/dL 31.2-35.0 RDW-SD (test code = 42780-4) 50.2 fL 38.5-51.6 RDW-CV (test code = 788-0) 14.3 % 12.1-15.4 PLT (test code = 777-3) 241 See_Comment [Automated messa ge] The system which generated this result transmitted reference range: 150 - 328 10*3/?L. The reference range was not used to interpret this result as normal/abnormal. MPV (test code = 31650-5) 8.6 fL 9.8-13.0 L NRBC/100 WBC (test code = 4075501631) 0.0 See_Comment [Automated [employer] ssage] The system which generated this result transmitted reference range: 0.0 - 10.0 /100 WBCs. The reference range was not used to interpret this result as normal/abnormal. NRBC x10^3 (test code = 8636726256) See_Comment [Automated messa ge] The system which generated this result transmitted reference range: 10*3/?L. The reference range was not used to interpret this result as normal/abnormal. GRAN MAT (NEUT) % (test code = 770-8) 63.9 % IMM GRAN % (test code = 6131093113) 0.50 % LYMPH % (test code = 736-9) 17.6 % MONO % (test code = 5905-5) 16.5 % EOS % (test code = 713-8) 0.7 % BASO % (test code = 706-2) 0.8 % GRAN MAT x10^3(ANC) (test code = 4249290374) 4.79 10*3/uL 1.99-6.95 IMM GRAN x10^3 (test code = 1310782859) 0.04 10*3/uL 0.00-0.06 LYMPH x10^3 (test code = 731-0) 1.32 10*3/uL 1.09-3.23 MONO x10^3 (test code = 742-7) 1.24 10*3/uL 0.36-1.02 H EOS x10^3 (test code = 711-2) 0.05 10*3/uL 0.06-0.53 L BASO x10^3 (test code = 704-7) 0.06 10*3/uL 0.01-0.09 Lab Interpretation (test code = 06922-9) Abnormal [facility]TR[facility] [id number] 15:15:32* Test Item Value Reference Range Interpretation Comments TROPONIN I (test code = 0648777308) 0.007 ng/mL See_Comment [Automated message] The system [...] of biotin. Lab Interpretation (test code = 11683-1) Normal [facility] CenteraPTT2022-10-16 15:08:29* Test Item Value Reference Range Interpretation Comme [facility] APTT Patient (test code = 3173-2) See_Comment [Automated message] The system which generated this result transmitted reference range: 23 - 38 Seconds. The reference range was not used to interpret this result as normal/abnormal. JUAN ALBERTO (test code = JUAN ALBERTO) The [facility] patient population mean normal value for aPTT is 30 seconds. Lab Interpretation (test code = 82357-1) Normal [facility] CenterPROTHROMBIN TIME / [id number] 15:06:28* Test Item Value Reference Range Interpretation Comme [facility] PROTIME PATIENT (test code = 5964-2) See_Comment [Automated [employer]] The system which generated this result transmitted reference range: 12.0 - 14.7 Seconds. The reference range was not used to interpret this result as normal/abnormal. INR (test code = 6301-6) Normal INR <1.1; Warfarin Therapeutic range 2.0 to 3.0 or 2.5 to 3.5, depending upon the indications. Lab Interpretation (test code = 26660-0) Normal [facility] CenterCOMP. METABOLIC PANEL (65083)2022-04-06 15:03:31* Test Item Value Reference Range Interpretation Comme nts NA (test code = 8968612789) 136 mmol/L 135-145 K (test code = 8970040260) 5.0 mmol/L 3.5-5 CL (test code = 9717492863) 104 mmol/L 98-108 CO2 TOTAL (test code = 8205200269) 21 mmol/L 23-31 L AGAP (test code = 0126635464) 2-16 BUN (test code = 1477773883) 11 mg/dL 7-23 GLUCOSE (test code = 8195789678) 162 mg/dL 70-110 H CREATININE (test code = 6398120187) 0.52 mg/dL 0.6-1.25 L TOTAL BILI (test code = 5738747912) 1.0 mg/dL 0.1-1.1 CALCIUM (test code = 6263398615) 9.3 mg/dL 8.6-10.6 T PROTEIN (test code = 0739151645) 7.4 g/dL 6.3-8.2 ALBUMIN (test code = 8204991215) 4.4 g/dL 3.5-5 ALK PHOS (test code = 0436825476) 134 U/L 34-122 H ALTv (test code = 1742-6) 17 U/L 5-50 AST(SGOT) (test code = 7862788853) 38 U/L 13-40 eGFR (test code = 5984261402) mL/min/1.73m2 JUAN ALBERTO (test code = JUAN [...] imaging tests). Lab Interpretation (test code = 76773-2) [facility]normal [facility] CenterLIP[facility], [id number] 15:03:31* Test Item Value Reference Range Interpretation Comme nts LIPASE (test code = 4943424645) 29 U/L 0-220 Lab Interpretation (test cod e = 65289-3) Normal [facility] CenterCB WITH [id number] 14:51:49* Test Item Value Reference Range Interpretation Comme nts WBC (test code = 6690-2) See_Comment [[employer]] The system which generated this result transmitted reference range: 4.20 - 10.70 10*3/?L. The reference range was not used to interpret this result as normal/abnormal. RBC (test code = 789-8) See_Comment [Automated [employer]] The system which generated this result transmitted [...] 34.0 g/dL 31.2-35 RDW-SD (test code = 55259-7) 45.9 fL 38.5-51.6 RDW-CV (test code = 788-0) 13.3 % 12.1-15.4 PLT (test code = 777-3) See_Comment [Automated messa ge] The system which generated this result transmitted reference range: 150 - 328 10*3/?L. The reference range was not used to interpret this result as normal/abnormal. MPV (test code = 34670-8) 8.4 fL 9.8-13 L NRBC/100 WBC (test code = 2374127785) See_Comment [Automated [employer] ssage] The system which generated this result transmitted reference range: 0.0 - 10.0 /100 WBCs. The reference range was not used to interpret this result as normal/abnormal. NRBC x10^3 (test code = 6820273993) See_Comment [Automated messa ge] The system which generated this result transmitted reference range: 10*3/?L. The reference range was not used to interpret this result as normal/abnormal. GRAN MAT (NEUT) % (test code = 770-8) 63.0 % IMM GRAN % (test code = 5074527116) 0.50 % LYMPH % (test code = 736-9) 25.2 % MONO % (test code = 5905-5) 9.8 % EOS % (test code = 713-8) 0.3 % BASO % (test code = 706-2) 1.2 % GRAN MAT x10^3(ANC) (test code = 7949549994) 3.73 10*3/uL 1.99-6.95 IMM GRAN x10^3 (test code = 1831347143) 0.03 10*3/uL 0-0.06 LYMPH x10^3 (test code = 731-0) 1.49 10*3/uL 1.09-3.23 MONO x10^3 (test code = 742-7) 0.58 10*3/uL 0.36-1.02 EOS x10^3 (test code = 711-2) 0.06-0.53 L BASO x10^3 (test code = 704-7) 0.07 10*3/uL 0.01-0.09 Lab Interpretation (test code = 95395-1) Abnormal [facility], Urinalysis Rflx Cult/Ixhkx0600-32-98 13:53:00* Test Item Value Reference Range Interpretation Comme nts Color,Urine (test code = UCOL) Yellow Yellow Clarity,Urine (test code = UCLAR) Cloudy Clear A Ph, Urine (test code = UPH) 7.5 5.0-9.0 N Specific [place],Urine (test code = USG) 1.025 1.005-1.030 N [...] = ULEU) Negative mg/dL Negative UF REFLEXDrug Screen,Zcddu6019-49-75 13:53:00* Test Item Value Reference Range Interpretation [...] UPROP) Negative Negative Complete Blood Count Auto Hhuz4233-27-13 12:58:00* Test Item Value Reference Range Interpretation [...] = NRBCP) 0 % Coronavirus PCR, COVID19 Xrjhc9467-30-51 12:58:00* Test Item Value Reference Range Interpretation Comme nts Coronavirus PCR, COVID19 Rapid (test code = SARSCOV2) Coronavirus PCR, COVID19 Rapid (test code = NHUPHCH63.1) Reference Range: Negative SARS-CoV-2 PCR Result: (test code = SARS-CoV-2 PCR Result:) Negative by RT-PCR COVID-19 Status: AsymptomaticComprehensive Metabolic Knvup9476-75-43 12:58:00* Test Item Value Reference Range Interpretation [...] = ALP) 144 U/L 46-116 H Ethanol Oivjf9402-77-56 12:58:00* Test Item Value Reference Range Interpretation Comme nts Ethanol (test code = ETOH) < 3 mg/dL The pharmacologi yudy response to blood alcohol levels mayvary from individual to individual. The fatal concentrationhas been reported to be >400mg/dL. [id number] 01:47:56* Test Item Value Reference Range Interpretation Comme nts Shubuta (test code = 3224605026) 0.7 mmol/L 0.6-1.2 JUNA ALBERTO (test code = JUAN ALBERTO) Toxic Range: ? Greater than 1.2 mmol/L Lab Interpretation (test code = 47612-7) Normal [facility] CenterTR[facility] [id number] 00:26:53* Test Item Value Reference Range Interpretation Comments TROPONIN I (test code = 7878119050) 0.002 ng/mL See_Comment [Automated message] The system [...] of biotin. Lab Interpretation (test code = 27298-9) Normal [facility] CenterETHANOL2022-08-01 00:18:52 ALCOHOL<10mg/dL01/19/2022 7:18 PM [facility]<10 Ckwqelfx50-469 Toxic>100 Depression of AIRCRAFT MECHANIC STRUCTURES>400 Fatalities ReportedCarrollton Regional Medical CenterCOMP. METABOLIC PANEL (22147)2022-01-20 00:16:16* Test Item Value Reference Range Interpretation Comme nts NA (test code = 6702502188) 137 mmol/L 135-145 K (test code = 1047213372) 4.5 mmol/L 3.5-5 CL (test code = 9517733970) 103 mmol/L 98-108 CO2 TOTAL (test code = 5893609814) 26 mmol/L 23-31 AGAP (test code = 0934884739) 2-16 BUN (test code = 3204280353) 10 mg/dL 7-23 GLUCOSE (test code = 1191360071) 121 mg/dL 70-110 H CREATININE (test code = 2936467503) 0.65 mg/dL 0.6-1.25 TOTAL BILI (test code = 5079106909) 0.8 mg/dL 0.1-1.1 CALCIUM (test code = 2633664266) 11.4 mg/dL 8.6-10.6 H T PROTEIN (test code = 6587599586) 7.2 g/dL 6.3-8.2 ALBUMIN (test code = 8491449968) 4.6 g/dL 3.5-5 ALK PHOS (test code = 7966577796) 112 U/L 34-122 ALTv (test code = 1742-6) 19 U/L 5-50 AST(SGOT) (test code = 7186026584) 26 U/L 13-40 eGFR (test code = 7745827740) mL/min/1.73m2 JUAN ALBERTO (test code = JUAN [...] imaging tests). Lab Interpretation (test code = 35651-2) Abnormal [facility] WITH [id number] 23:43:54* Test Item Value Reference Range Interpretation Comme nts WBC (test code = 6690-2) See_Comment [Automated G-volution] The system which generated this result transmitted reference range: 4.20 - 10.70 10*3/?L. The reference range was not used to interpret this result as normal/abnormal. RBC (test code = 789-8) See_Comment [[employer]] The system which generated this result transmitted [...] 34.4 g/dL 31.2-35 RDW-SD (test code = 46032-4) 44.0 fL 38.5-51.6 RDW-CV (test code = 788-0) 12.6 % 12.1-15.4 PLT (test code = 777-3) See_Comment [Automated messa ge] The system which generated this result transmitted reference range: 150 - 328 10*3/?L. The reference range was not used to interpret this result as normal/abnormal. MPV (test code = 45006-6) 9.1 fL 9.8-13 L NRBC/100 WBC (test code = 6861221329) See_Comment [Automated me ssage] The system which generated this result transmitted reference range: 0.0 - 10.0 /100 WBCs. The reference range was not used to interpret this result as normal/abnormal. NRBC x10^3 (test code = 4733676329) See_Comment [Automated messa ge] The system which generated this result transmitted reference range: 10*3/?L. The reference range was not used to interpret this result as normal/abnormal. GRAN MAT (NEUT) % (test code = 770-8) 69.8 % IMM GRAN % (test code = 4337510947) 0.40 % LYMPH % (test code = 736-9) 18.0 % MONO % (test code = 5905-5) 10.9 % EOS % (test code = 713-8) 0.1 % BASO % (test code = 706-2) 0.8 % GRAN MAT x10^3(ANC) (test code = 6414298259) 5.58 10*3/uL 1.99-6.95 IMM GRAN x10^3 (test code = 9812985795) 0.03 10*3/uL 0-0.06 LYMPH x10^3 (test code = 731-0) 1.44 10*3/uL 1.09-3.23 MONO x10^3 (test code = 742-7) 0.87 10*3/uL 0.36-1.02 EOS x10^3 (test code = 711-2) 0.06-0.53 L BASO x10^3 (test code = 704-7) 0.06 10*3/uL 0.01-0.09 Lab Interpretation (test code = 80746-5) Abnormal [facility] GLUCOSE (AUTOMATED)2022-01-19 22:27:41* Test Item Value Reference Range Interpretation Comme nts POCT GLU (test code = 1686916065) 123 mg/dL 70-110 H Lab Interpretation (test cod e = 41911-5) Abnormal [facility] GLUCOSE (AUTOMATED)2021-12-30 22:08:16* Test Item Value Reference Range Interpretation Comme nts POCT GLU (test code = 6647109811) 167 mg/dL 70-110 H Lab Interpretation (test cod e = 14318-2) Abnormal [facility] GLUCOSE (AUTOMATED)2021-12-30 16:50:40* Test Item Value Reference Range Interpretation Comme nts POCT GLU (test code = 1968604345) 154 mg/dL 70-110 H Lab Interpretation (test cod e = 74023-3) Abnormal [facility] GLUCOSE (AUTOMATED)2021-12-30 12:38:43* Test Item Value Reference Range Interpretation Comme nts POCT GLU (test code = 0724206643) 164 mg/dL 70-110 H Lab Interpretation (test cod e = 45468-4) Abnormal [facility] GLUCOSE (AUTOMATED)2021-12-30 02:14:58* Test Item Value Reference Range Interpretation Comme nts POCT GLU (test code = 4901785469) 220 mg/dL 70-110 H Lab Interpretation (test cod e = 35421-4) Abnormal [facility] GLUCOSE (AUTOMATED)2021-12-29 21:50:02* Test Item Value Reference Range Interpretation Comme nts POCT GLU (test code = 5993397136) 191 mg/dL 70-110 H Lab Interpretation (test cod e = 59595-0) Abnormal [facility] GLUCOSE (AUTOMATED)2021-12-29 20:15:01* Test Item Value Reference Range Interpretation Comme nts POCT GLU (test code = 9431235448) 163 mg/dL 70-110 H Lab Interpretation (test cod e = 37567-2) [facility]29 19:12:22* Test Item Value Reference Range Interpretation Comme nts Height (test code = 8809111465) in Weight (test code = 8800034278) lbs Systolic BP (test code = 9493583558) mmHg Diastolic BP (test code = 2900815327) mmHg Heart Rate (test code = 9484427322) bpm BSA (test code = 9153548246) 1.62 m2 Ao root annulus (test code = 7498278806) 2.45 cm Ao root diam (test code = 4857680568) 2.45 cm Aortic root (test code = 5922071938) 2.45 cm ACS (test code = 7005386672) 1.66 cm LA size (test code = 7255274041) 3.2 cm LVOT diameter (test code = 6066423610) 1.95 cm LVIDD (test code = 3135051887) 3.60 cm IVS (test code = 7674366644) 0.94 cm Interventricular Septum Diastolic Thickness by 2D (test code = 2330452) 0.94 cm LVPWD (test code = 9973944675) 0.80 cm PW (test code = 9686406551) 0.80 cm 0.6-1.1 EF(Teich) (test code = 6493995508) 52.80 % LVIDS (test code = 5628174367) 2.60 cm FS (test code = 7746538832) 27 % EF - 2D (test code = 31707294) 52.80 % LAV(MOD-sp4) (test code = 0370741898) 16.80 mL MV Peak E Jovany (test code = 5119698970) 46.1 cm/s E wave decelartion time (test code = 6147798050) 0.31 s MV Peak A Jovany (test code = 7460986583) 58.1 cm/s E/A ratio (test code = 2522199875) ratio MV E/e' septal (test code = 1559968159) 5.7 cm/s Tapse (test code = 9097454675) 1.60 cm LVOT stroke volume (test code = 7120060135) 52.10 cm3 LVOT peak jovany (test code = 7960916310) 110.6 cm/s LVOT mn grad (test code = 0272292000) mmHg AV LVOT peak gradient (test code = 2921677813) mmHg LVOT peak VTI (test code = 6858628077) 17.4 cm LV V1 mean (test code = 4426385964) 66.10 cm/s Aortic valve mean velocity (test code = 1071077674) 73.0 cm/s Ao peak jovany (test code = 7181027611) 124.6 cm/s Ao VTI (test code = 8388148205) 18.6 cm AV area by cont VTI (test code = 4523984248) 2.8 cm2 AV area peak jovany (test code = 8336018357) 2.7 cm2 Ao max PG (test code = 0087933887) 6.20 mm[Hg] AV peak gradient (test code = 8127229159) mmHg AV valve area (test code = 8148310142) 2.80 cm2 AV mean gradient (test code = 3599647775) mmHg Radiology Study observation (narrative) (test code = 01755-3) JUAN ALBERTO (test code = JUAN ALBERTO) [...] mL of Lumason ultrasound [facility]. [facility]21[facility] 12:50:31* Test Item Value Reference Range Interpretation Comme nts POCT GLU (test code = 3684647253) 141 mg/dL 70-110 H Lab Interpretation (test cod e = 21457-8) [facility]normal [facility] [id number] 10:38:31* Test Item Value Reference Range Interpretation Comments TROPONIN I (test code = 1501722686) 0.003 ng/mL See_Comment [Automated message] The system [...] of biotin. Lab Interpretation (test code = 70358-4) Normal [facility] CenterLIPID PANEL (42710)(TOTAL CHOLESTEROL, TRIGLYCERIDES, HDL)2021-12-29 05:56:47* Test Item Value Reference Range Interpretation Comme nts CHOL (test code = 4103569039) 168 mg/dL 120-200 HDL (test code = 7310092610) 102 mg/dL See_Comment [Automated [employer]] The system which generated this result transmitted reference range: >=40. The reference range was not used to interpret this result as normal/abnormal. HDLC RATIO (test code = 2222699570) See_Comment [Automated [employer] ge] The system which generated this result transmitted reference range: <=5.0. The reference range was not used to interpret this result as normal/abnormal. TRIG (test code = 6902700429) 55 mg/dL 30-170 LDL CHOL (test code = 45818-3) 55 mg/dL See_Comment [Automated [employer] ge] The system which generated this result transmitted reference range: <=160. The reference range was not used to interpret this result as normal/abnormal. VLDL (test code = 5728845491) 11 mg/dL 5-60 Lab Interpretation (test code = 46826-0) Normal [facility] Center[facility]yroid Stimulating Hormone (TSH)2021-12-29 05:40:29* Test Item Value Reference Range Interpretation Comme nts TSH (test code = 3708891901) See_Comment Biotin has been reported to cause a negative bias, interpret results relative to patient's use of biotin. [Automated message] The system which generated this result transmitted reference range: 0.45 - 4.70 mIU/L. The reference range was not used to interpret this result as normal/abnormal. Lab Interpretation (test code = 50411-4) Normal [facility] Center[facility]rop[facility] [id number] 05:34:29* Test Item Value Reference Range Interpretation Comments TROPONIN I (test code = 4763765235) 0.006 ng/mL See_Comment [Automated message] The system [...] of biotin. Lab Interpretation (test code = 81802-7) Normal [facility] CenterETHANOL2022-07-10 04:43:01 ALCOHOL<10mg/dL12/28/2021 11:43 PM [facility]ORYToxic Greater than or equal to 80 mg/dL. NOTE: Whole blood values are approximately 10% to 15% lower than serum and plasma.[facility] Glycosylated Hemoglobin (A1C)2021-12-29 01:51:44* Test Item Value Reference Range Interpretation Comme nts HGB A1C (test code = 4548-4) 6.5 % 4-5.7 H JUAN ALBERTO (test code = JUAN ALBERTO) Reference RangesNormal: <5.7%Prediabetes: 5.7 - 6.4%Diabetes: > 6.5% Lab Interpretation (test code = 51204-7) Abnormal [facility] CenterTROPONIN [id number] 21:26:50* Test Item Value Reference Range Interpretation Comments TROPONIN I (test code = 1111760048) 0.002 ng/mL See_Comment [Automated message] The system [...] of biotin. Lab Interpretation (test code = 27688-5) Normal [facility] CenterN-TERMINAL [id number] 21:23:29* Test Item Value Reference Range Interpretation Comme nts NT-proBNP (test code = 2150525071) 41 pg/mL See_Comment [Automated message] The system which generated this result transmitted reference range: <=125. The reference range was not used to interpret this result as normal/abnormal. JUAN ALBERTO (test code = JUAN ALBERTO) Biotin has been reported to cause a negative bias, interpret results relative to patient's use of biotin. Lab Interpretation (test code = 81600-3) Normal [facility] CenterAMMONIA, [id number] 21:20:38* Test Item Value Reference Range Interpretation Comme nts AMMONIA (test code = 8731449624) 9-33 L Slight hemolysis Lab Interpretation (test code = 17025-3) Abnormal [facility] CenterCOMP. METABOLIC PANEL (94449)2021-12-28 21:08:48* Test Item Value Reference Range Interpretation Comme nts NA (test code = 9548941290) 137 mmol/L 135-145 K (test code = 1760019668) 4.5 mmol/L 3.5-5 CL (test code = 6292963938) 97 mmol/L 98-108 L CO2 TOTAL (test code = 6207888838) 29 mmol/L 23-31 AGAP (test code = 6315752597) 2-16 BUN (test code = 4314294714) 10 mg/dL 7-23 GLUCOSE (test code = 5856041164) 188 mg/dL 70-110 H CREATININE (test code = 7905338603) 0.58 mg/dL 0.6-1.25 L TOTAL BILI (test code = 4557506337) 0.8 mg/dL 0.1-1.1 CALCIUM (test code = 0929113281) 10.5 mg/dL 8.6-10.6 T PROTEIN (test code = 2498216231) 7.6 g/dL 6.3-8.2 ALBUMIN (test code = 6438555807) 4.5 g/dL 3.5-5 ALK PHOS (test code = 0289003640) 107 U/L 34-122 ALTv (test code = 1742-6) 66 U/L 5-50 H AST(SGOT) (test code = 0636512003) 96 U/L 13-40 H eGFR (test code = 1395471858) mL/min/1.73m2 JUAN ALBERTO (test code = JUAN [...] imaging tests). Lab Interpretation (test code = 00243-0) Abnormal [facility] CenterPROTHROMBIN TIME / [id number] 21:01:25* Test Item Value Reference Range Interpretation Comme nts PROTIME PATIENT (test code = 5964-2) See_Comment [Automated [employer]] The system which generated this result transmitted reference range: 12.0 - 14.7 Seconds. The reference range was not used to interpret this result as normal/abnormal. INR (test code = 6301-6) Normal INR <1.1; Warfarin Therapeutic range 2.0 to 3.0 or 2.5 to 3.5, depending upon the indications. Lab Interpretation (test code = 70754-6) Normal [facility] CenterCBC WITH [id number] 20:54:03* Test Item Value Reference Range Interpretation Comme nts WBC (test code = 6690-2) See_Comment [Automated [employer]] The system which generated this result transmitted reference range: 4.20 - 10.70 10*3/?L. The reference range was not used to interpret this result as normal/abnormal. RBC (test code = 789-8) See_Comment [Automated [employer]] The system which generated this result transmitted [...] 34.2 g/dL 31.2-35 RDW-SD (test code = 36522-2) 47.8 fL 38.5-51.6 RDW-CV (test code = 788-0) 13.3 % 12.1-15.4 PLT (test code = 777-3) See_Comment [Automated [employer] ge] The system which generated this result transmitted reference range: 150 - 328 10*3/?L. The reference range was not used to interpret this result as normal/abnormal. MPV (test code = 46901-7) 8.6 fL 9.8-13 L NRBC/100 WBC (test code = 4110052333) See_Comment [Automated [employer] ssage] The system which generated this result transmitted reference range: 0.0 - 10.0 /100 WBCs. The reference range was not used to interpret this result as normal/abnormal. NRBC x10^3 (test code = 8556381573) See_Comment [Automated [employer] ge] The system which generated this result transmitted reference range: 10*3/?L. The reference range was not used to interpret this result as normal/abnormal. GRAN MAT (NEUT) % (test code = 770-8) 64.1 % IMM GRAN % (test code = 5792559379) 0.40 % LYMPH % (test code = 736-9) 16.6 % MONO % (test code = 5905-5) 17.2 % EOS % (test code = 713-8) 0.2 % BASO % (test code = 706-2) 1.5 % GRAN MAT x10^3(ANC) (test code = 1742729025) 3.47 10*3/uL 1.99-6.95 IMM GRAN x10^3 (test code = 5723718067) 0-0.06 LYMPH x10^3 (test code = 731-0) 0.90 10*3/uL 1.09-3.23 L MONO x10^3 (test code = 742-7) 0.93 10*3/uL 0.36-1.02 EOS x10^3 (test code = 711-2) 0.06-0.53 L BASO x10^3 (test code = 704-7) 0.08 10*3/uL 0.01-0.09 Lab Interpretation (test code = 36521-0) Abnormal [facility] CenterEthanol [id number] 21:08:00* Test Item Value Reference Range Interpretation Comme nts Ethanol (test code = ETOH) < 3 mg/dL The pharmacologi yudy response to blood alcohol levels mayvary from individual to individual. The fatal concentrationhas been reported to be >400mg/dL. Complete Blood Count Auto [id number] 17:33:00* Test Item Value Reference Range Interpretation [...] = NRBCP) 0 % UA, Urinalysis Rflx Cult/[id number] 17:33:00* Test Item Value Reference Range Interpretation Comme nts Color,Urine (test code = UCOL) Dark Yellow Yellow A Clarity,Urine (test code = UCLAR) Clear Clear Ph, Urine (test code = UPH) 6.5 5.0-9.0 N Specific [place],Urine (test code = USG) 1.015 1.005-1.030 N [...] = ULEU) Trace mg/dL Negative A Urine [id number] 17:33:00* Test Item Value Reference Range Interpretation Comme nts RBC,Urine (test code = URBCUF) None Seen /HPF 0-2 WBC,Urine (test code = UWBCUF) 0-5 /HPF 0-5 Epithelial Cell,Urine (test code = UECUF) 0-5 /HPF 0-5 Casts,Urine (test code = UCASTUF) None Seen /LPF None Seen Bacteria,Urine (test code = UBACTUF) None Seen /hpf None Seen Drug Screen,[id number] 17:33:00* Test Item Value Reference Range Interpretation [...] code = UPROP) Negative Negative Comprehensive Metabolic Ierkh4687-08-73 17:33:00* Test Item Value Reference Range Interpretation [...] 101 U/L 46-116 N Sars-CoV-2/FLU A/B RSV [id number] 17:31:00* Test Item Value Reference Range Interpretation [...] SARS-CoV-2 PCR Result:) Negative by RT-PCR Drug Screen,[id number] 17:20:00* Test Item Value Reference Range Interpretation [...] UPROP) Negative Negative Complete Blood Count Auto [id number] 17:14:00* Test Item Value Reference Range Interpretation [...] code = NRBCP) 0 % Comprehensive Metabolic [id number] 17:14:00* Test Item Value Reference Range Interpretation [...] = ALP) 207 U/L 46-116 H Ethanol [id number] 17:14:00* Test Item Value Reference Range Interpretation Comme nts Ethanol (test code = ETOH) 192 mg/dL Complete Blood Count Auto [id number] 20:20:00* Test Item Value Reference Range Interpretation [...] code = NRBCP) 0 % Comprehensive Metabolic [id number] 20:20:00* Test Item Value Reference Range Interpretation [...] = ALP) 189 U/L 46-116 H Ethanol [id number] 20:20:00* Test Item Value Reference Range Interpretation Comme nts Ethanol (test code = ETOH) 10 mg/dL Sars-CoV-2/FLU A/B RSV [id number] 20:20:00* Test Item Value Reference Range Interpretation [...] Negative by Nucleic Acid Amplification UA, Urinalysis Llaueoslsjo5598-51-16 20:20:00* Test Item Value Reference Range Interpretation Comme nts Color,Urine (test code = UCOL) Yellow Y Clarity,Urine (test code = UCLAR) Clear Clear PH,Urine (test code = UPH.XX) 7.0 5.5-8.5 Specific [place],Urine (test code = USG) 1.020 1.005-1.030 N [...] code = ULEU) Negative cells/uL Negative Drug Screen,Sturo5887-88-97 20:20:00* Test Item Value Reference Range Interpretation [...] RESULT TO MICHAELA TRACY CT head/brain wo [facility] [address] [place] [address] Patient Name: Walt Velazquez Medical Record#: [id number] Address: Homeless City/State/Zip: [place] [address]: Vinnie Navarro MD Phone: Insurance: Self Pay /Age/Sex: 1970/50/M Admit/Reg Date: 09/17/[address]: Vinnie Navarro MD Location: [facility]/ PCP: Md KERWIN Flores Date of Service: 09/17/21 Order (s): CT head/brain wo con CPT Code: 23760 Report Number: [id number] Reason for Exam: Altered mental status Location [...] Karen Jay MD 09/17/2021 6:42 PM CDTWorkstation: [id number] Dictated By: Karen Sanders MD 09/17/211824 Signed By: Karen Sanders MD 09/17/211824 TD/TT: 09/17/211824 Tech: [id number] cc: JOSEE; GENESIS* Vinnie Navarro MD; Pcp-Md KERWIN Stiles"
--- NOTE | 2023-07-24 16:59 | ER ---
Nurse's Notes [facility] Name: Walt Velazquez Age: 52 yrs Sex: Male : 1970 Arrival Date: 07/24/2023 Time: 15:33 Bed 14 Private MD: Diagnosis: Chest pain, unspecified Presentation: 07/24 15:35 Chief complaint: EMS states: toned out to [place] [employer] for chest pain. c/o cp that is me1 midsternal, "feels like something is kicking me from the inside out.". Coronavirus screen: Vaccine status: Patient reports being unvaccinated. Ebola Screen: No symptoms or risks identified at this time. Initial Sepsis Screen: Does the patient meet any 2 criteria? No. Patient's initial sepsis screen is negative. Does the patient have a suspected source of infection? No. Patient's initial sepsis screen is negative. Risk Assessment: Do you want to hurt yourself or someone else? Patient reports no desire to harm self or others. Onset of symptoms was July 24, 2023. 15:35 Method Of Arrival: EMS: [facility] [facility] mo1 15:35 Acuity: LATASHA 4 me1 15:36 Acuity: LATASHA 3 hb Triage Assessment: 15:42 General: Appears comfortable, unkempt, well developed, well nourished, Behavior is me1 calm, cooperative, appropriate for age, Reports c/o chest pain and headache. Pain: Complains of pain in chest Pain does not radiate. Pain currently is 7 out of 10 on a pain scale. Quality of pain is described as pounding Pain began suddenly, Is continuous. Neuro: Level of Consciousness is awake, alert, obeys commands, Oriented to person, place, time, situation, Appropriate for age. Cardiovascular: Capillary refill < 3 seconds Patient's skin is warm and dry. Respiratory: Airway is patent Respiratory effort is even, unlabored, Respiratory pattern is regular, symmetrical. Historical: - Allergies: 15:42 Trazodone; me1 - PMHx: 15:42 Alcoholism; Hypertensive disorder; Bipolar II; Seizure; Parkinsons; me1 - Immunization history:: Adult Immunizations unknown. - Social history:: Smoking status: unknown Patient uses alcohol, on a daily basis. - Family history:: not pertinent. - Hospitalizations: : No recent hospitalization is reported. Screenin:44 [facility] ED Fall Risk Assessment (Adult) History of falling in the last 3 months, me1 including since admission No falls in past 3 months (0 pts) Confusion or Disorientation No (0 pts) Intoxicated or Sedated Yes (3 pts) Impaired Gait Yes (1 pt) Mobility Assist Device Used No (0 pt) Altered Elimination No (0 pt) Score/Fall Risk Level 3 or more points = High Risk Maintained a safe environment, Hourly rounding (assess needs \\T\\ fall precautionary measures) done, Used ambulatory aids as needed (educated on \\T\\ assisted with). Abuse screen: Denies threats or abuse. Nutritional screening: No deficits noted. Tuberculosis screening: No symptoms or risk factors identified. Assessment: 15:44 General: See triage assessment. . me1 17:52 General: Patient left before signing discharge paperwork.. me1 Vital Signs: 15:35 BP 119 / 86; Pulse 77; Resp 18; Temp 98.4(O); Pulse Ox 100% on R/A; Weight 61.23 kg; me1 Height 5 ft. 3 in. ; 15:45 BP 131 / 91; Pulse 85; Resp 20; Pulse Ox 100% on R/A; me1 16:45 BP 140 / 75; Pulse 80; Resp 17; Pulse Ox 100% on R/A; me1 17:30 BP 135 / 82; Pulse 78; Resp 16; Pulse Ox 98% on R/A; me1 15:35 Body Mass Index 23.91 (61.23 kg, 160.02 cm) me1 ED Course: 15:34 Patient arrived in ED. me1 15:36 Jovanny Wen DO is Attending Physician. ms3 15:37 Attending Physician role handed off by Jovanny Wen DO rn 15:37 Kaiser Marie MD is Attending Physician. rn 15:42 Triage completed. me1 15:42 Arm band placed on Patient placed in an exam room. me1 15:44 Patient has correct armband on for positive identification. Bed in low position. Call me1 light in reach. Side rails up X2. Provided Education on: POC. Verbalized understanding. . Client placed on continuous cardiac and pulse oximetry monitoring. NIBP monitoring applied. operations architect on. Pulse ox on. 15:44 No provider procedures requiring assistance completed. Patient maintains SpO2 me1 saturation greater than 95% on room air. 16:03 Dora Bowens, RN is Primary Nurse. me1 16:21 Inserted saline lock: 22 gauge in right antecubital area, using aseptic technique. me1 16:22 Troponin High Sensitivity Sent. me1 17:50 IV discontinued, intact, bleeding controlled, No redness/swelling at site. Pressure me1 dressing applied. Administered Medications: 16:28 Drug: NS 0.9% IV 1000 ml IV at 1000 ml once Route: IV; Rate: 1000 ml; Site: right as6 antecubital; 17:49 Follow up: IV Status: Completed infusion me1 Medication: 15:44 VIS not applicable for this client. me1 Outcome: 16:59 Discharge ordered by . rn 17:51 Discharged to home ambulatory, me1 17:51 Condition: stable 17:51 Discharge instructions given to patient, Instructed on discharge instructions, follow up and referral plans. Demonstrated understanding of instructions, follow-up care, 17:53 Patient left the ED. me1 Signatures: Kaiser Marie MD MD rn Baxter, Heather, RN RN Jovanny Wen DO DO ms3 Nico Dean RN RN as6 Dora Bowens, RN RN me1
--- NOTE | 2023-07-24 16:59 | EDPHYS ---
Physician Documentation [facility] Name: Walt Velazquez Age: 52 yrs Sex: Male : 1970 Arrival Date: 07/24/2023 Time: 15:33 Bed 14 Private MD: ED Physician Kaiser Marie HPI: 07/24 15:41 This 52 yrs old Male presents to ER via Unassigned with complaints of Chest rn Pain. 15:41 The patient or guardian reports chest pain that is located primarily in the chest rn diffusely. Onset: at an unknown time. The pain does not radiate. Associated signs and symptoms: Pertinent positives: None. Pertinent negatives: abdominal pain, cough, diaphoresis, lightheadedness, near syncope, palpitations, shortness of breath, syncope, vomiting. The chest pain is described as sharp. Duration: The patient or guardian reports multiple episodes, that are intermittent. Modifying factors: The symptoms are alleviated by nothing. the symptoms are aggravated by Drug use. Severity of pain: At its worst the pain was mild in the emergency department the pain is unchanged. The patient has experienced similar episodes in the past. Patient reports intermittent chest pain. Unknown onset. Reports real concern is that he cannot stop using drugs. Reports use of stimulants, crack, cocaine, alcohol. Denies recent seizure. No shortness of breath. No trauma. No fever.. Historical: - Allergies: 15:42 Trazodone; me1 - PMHx: 15:42 Alcoholism; Hypertensive disorder; Bipolar II; Seizure; Parkinsons; me1 - Immunization history:: Adult Immunizations unknown. - Social history:: Smoking status: unknown Patient uses alcohol, on a daily basis. - Family history:: not pertinent. - Hospitalizations: : No recent hospitalization is reported. ROS: 15:41 Constitutional: Negative for fever, chills, and weight loss, Cardiovascular: Negative rn for palpitations, and edema Respiratory: Negative for shortness of breath, wheezing, and pleuritic chest pain Abdomen/GI: Negative for abdominal pain, nausea, vomiting, diarrhea, and constipation, MS/Extremity: Negative for injury and deformity, Skin: Negative for injury, rash, and discoloration, Neuro: Negative for headache, numbness, tingling, and seizure, Exam: 15:41 Constitutional: This is a well developed, well nourished patient who is awake, alert, rn and in no acute distress. Head/Face: Normocephalic, atraumatic. Cardiovascular: Regular rate and rhythm. No pulse deficits. Respiratory: No increased work of breathing, no retractions or nasal flaring. Abdomen/GI: Soft, non-tender MS/ Extremity: Pulses equal, no cyanosis. Neuro: Awake and alert, GCS 15 Vital Signs: 15:35 BP 119 / 86; Pulse 77; Resp 18; Temp 98.4(O); Pulse Ox 100% on R/A; Weight 61.23 kg; me1 Height 5 ft. 3 in. ; 15:45 BP 131 / 91; Pulse 85; Resp 20; Pulse Ox 100% on R/A; me1 16:45 BP 140 / 75; Pulse 80; Resp 17; Pulse Ox 100% on R/A; me1 17:30 BP 135 / 82; Pulse 78; Resp 16; Pulse Ox 98% on R/A; me1 15:35 Body Mass Index 23.91 (61.23 kg, 160.02 cm) me1 MDM: 15:37 Patient medically screened. rn 16:58 Differential diagnosis: acute myocardial infarction, anxiety, chest wall pain, rn costochondritis, gastritis. Differential diagnosis: Drug related chest pain, stimulant related chest pain. HEART Score: History: Slightly Suspicious (0), ECG: Normal (0), Age: > 45 and < 65 years (1), Risk Factors: 1 or 2 risk factors (1), Troponin: < or = 1 x Normal Limit (0), Total Score = 2. Data reviewed: vital signs, nurses notes, lab test result(s), EKG, and as a result, I will discharge patient. Counseling: I had a detailed discussion with the patient and/or guardian regarding the historical points, exam findings, and any diagnostic results supporting the discharge/admit diagnosis, lab results, the need for outpatient follow up, to return to the emergency department if symptoms worsen or persist or if there are any questions or concerns that arise at home. Response to treatment: the patient's symptoms have mildly improved after treatment, and as a result, I will discharge patient. Special discussion: Based on the patient's history, exam, and Dx evaluation, there is no indication for emergent intervention or inpatient Tx. It is understood by the patient/guardian that if the Sx's persist or worsen they need to return immediately for re-evaluation. I discussed with the patient/guardian in detail that at this point there is no indication for admission to the hospital. It is understood, however, that if the symptoms persist or worsen the patient needs to return immediately for re-evaluation. 17:00 ED course: Extensive counseling with patient regarding drug use and need to quit as rn well as alcohol dependence and need to quit.. 07/24 15:38 Order name: Troponin High Sensitivity; Complete Time: 16:58 rn 07/24 15:38 Order name: EKG; Complete Time: 15:38 rn 07/24 15:38 Order name: EKG - Nurse/Tech; Complete Time: 16:28 rn 07/24 15:38 Order name: IV Start; Complete Time: 16:22 rn 07/24 15:38 Order name: PO challenge; Complete Time: 16:22 rn Administered Medications: 16:28 Drug: NS 0.9% IV 1000 ml IV at 1000 ml once Route: IV; Rate: 1000 ml; Site: right as6 antecubital; 17:49 Follow up: IV Status: Completed infusion me1 Disposition Summary: 07/24/23 16:59 Discharge Ordered Notes: Location: Home rn Problem: new rn Symptoms: have improved rn Condition: Stable rn Diagnosis - Chest pain, unspecified rn Followup: rn - With: Private Physician - When: As needed - Reason: Recheck today's complaints, Re-evaluation by your physician Discharge Instructions: - Discharge Summary Sheet rn - Nonspecific Chest Pain, Adult rn Forms: - Medication Reconciliation Form rn - Thank You Letter rn - Antibiotic glass furnace tender - Prescription Opioid Use rn - Patient Portal Instructions rn - Leadership Thank You Letter rn Signatures: Dispatcher [employer] Kaiser Rausch MD MD rn Slawson, Ashby, RN RN as6 Dora Bowens RN RN me1
--- NOTE | 2023-07-27 15:06 | EKG ---
Test Date: 2023-07-24 Test Time: 22:03:47 X Ray Equipment Tester: RV MEASUREMENT RESULTS: Intervals: Rate: 64 ID: QRSD: [id number] QT: 380 QTc: 392 Rebecca: P: ID: [id number]: [id number] T: 20 INTERPRETIVE STATEMENTS: Sinus rhythm Abnormal ECG Compared to ECG 07/23/2023 21:01:35 Myocardial infarct finding no longer present Electronically Signed On 07-27-23 15:01:33 DRY CELL SEALER by Cristhian Hernandez
== END ==
LOC: ER 15:33
DX: R07.9 Chest pain, unspecified (principal)
CPT/HCPCS: 36415; 84484; 93005; J7030

== ENCOUNTER → 2023-07-24 | Emergency (ER) | payer SELFPAY ==
[2023-07-24 22:26] LABS: Absolute Lymphocytes (CBC) 2.8 K/uL (0.7-4.9); Hematocrit 40.6 % (39.6-49.0); Lymphocytes % 43.4 % (15.3-44.8); MCV 94.2 fL (80-100); MPV 5.9 fL (7.6-11.3); Platelets 269 thou/uL (152-406); RBC Red Blood Cell Count 4.31 M/uL (4.33-5.43)
[2023-07-24 22:47] LABS: ALT/SGPT 16 U/L (16-61); AST/SGOT 19 U/L (15-37); Alkaline Phosphatase 89 U/L (45-117); BUN Blood Urea Nitrogen 5 mg/dL (7-18); Bicarbonate 31 mEq/L (21-32); Bilirubin Total 0.2 mg/dL (0.2-1.0); Glomerular Filtration Rate 117 ml/min (=/>90); Glucose Level 150 mg/dL (74-106); NT PRO-BNP 360 pg/mL (<125); Potassium 3.5 mEq/L (3.5-5.1); Protein, Total 6.6 g/dL (6.4-8.2); Sodium Level 141 mEq/L (136-145); Troponin High Sensitivity 15.9 pg/mL (<58.9)
[2023-07-24 22:49] LABS: Bilirubin Direct < 0.1 mg/dL (0-0.2); Bilirubin Indirect, Calculated ND mg/dL (0.2-0.8)
[2023-07-24 23:16] LABS: Barbiturates NEGATIVE (NEGATIVE); Benzodiazepines NEGATIVE (NEGATIVE); Cocaine NEGATIVE (NEGATIVE); METHAMPHETAM NEGATIVE (NEGATIVE); Methadone NEGATIVE (NEGATIVE); Opiates NEGATIVE (NEGATIVE); Phencyclidine NEGATIVE (NEGATIVE); THC Cannibis NEGATIVE (NEGATIVE)
--- NOTE | 2023-07-25 06:06 | ER ---
Nurse's Notes [facility] Name: Walt Velazquez Age: 52 yrs Sex: Male : 1970 Arrival Date: 07/24/2023 Time: 21:48 Bed 3 Private MD: Diagnosis: Chest pain, unspecified;Alcohol abuse with intoxication Presentation: 07/24 21:51 Chief complaint: Patient states: I was drinking liquor and I passed out and when I woke jb4 up EMS was there and I wanted to come back to the hospital because my chest hurt. Coronavirus screen: At this time, the client does not indicate any symptoms associated with coronavirus-19. Ebola Screen: No symptoms or risks identified at this time. Initial Sepsis Screen: Does the patient meet any 2 criteria? No. Patient's initial sepsis screen is negative. Does the patient have a suspected source of infection? No. Patient's initial sepsis screen is negative. Risk Assessment: Do you want to hurt yourself or someone else? Patient reports no desire to harm self or others. Onset of symptoms was July 24, 2023. Transition of care: patient was not received from another setting of care. 21:51 Method Of Arrival: EMS: [facility] jb4 21:51 Acuity: LATASHA 3 jb4 Triage Assessment: 22:21 General: Appears in no apparent distress. comfortable, Behavior is calm, cooperative. rv Pain: Denies pain. Historical: - Allergies: 21:52 Trazodone; jb4 - PMHx: 21:52 Alcoholism; Bipolar II; Hypertensive disorder; Parkinsons; Seizure; jb4 - Immunization history:: Client reports having NOT received the Covid vaccine. Flu vaccine is not up to date. - Social history:: Patient uses street drugs, K2, Smoking status: Patient reports the use of cigarette tobacco products, unknown amount Patient uses alcohol, on a daily basis. street drugs, all drugs. - History obtained from: EMS. Screenin:21 [facility] ED Fall Risk Assessment (Adult) History of falling in the last 3 months, rv including since admission No falls in past 3 months (0 pts) Confusion or Disorientation Yes (5 pts) Intoxicated or Sedated Yes (3 pts) Score/Fall Risk Level 3 or more points = High Risk Oriented to surroundings, Maintained a safe environment, Educated pt \T\ family on fall prevention, incl call for assistance when getting out of bed, Assessed \T\ reinforced patient's understanding of fall precautions. Abuse screen: Denies threats or abuse. Denies injuries from another. Nutritional screening: No deficits noted. Tuberculosis screening: No symptoms or risk factors identified. Assessment: 23:00 Reassessment: Patient appears in no apparent distress at this time. No changes from [facility] previously documented assessment. Patient and/or family updated on plan of care and expected duration. Pain level reassessed. pt sleeping at this time. 07/25 00:00 Reassessment: Patient appears in no apparent distress at this time. No changes from km8 previously documented assessment. Patient and/or family updated on plan of care and expected duration. Pain level reassessed. pt sleeping at this time. 01:00 Reassessment: Patient appears in no apparent distress at this time. No changes from km8 previously documented assessment. 02:00 Reassessment: Patient appears in no apparent distress at this time. No changes from km8 previously documented assessment. 03:00 Reassessment: Patient appears in no apparent distress at this time. No changes from km8 previously documented assessment. 04:00 Reassessment: Patient appears in no apparent distress at this time. No changes from km8 previously documented assessment. 05:00 Reassessment: Patient appears in no apparent distress at this time. No changes from km8 previously documented assessment. Vital Signs: 07/24 22:01 BP 114 / 82; Pulse 66; Resp 18; Temp 97.1(IR); Pulse Ox 98% on R/A; Weight 61.23 kg km8 (R); Height 5 ft. 3 in. (R); Pain 5/10; 22:30 BP 114 / 82; Pulse 68; Resp 16; Pulse Ox 98% on R/A; 8 23:00 BP 87 / 54; Pulse 60; Resp 16; Pulse Ox 98% on R/A; 8 23:30 BP 107 / 57; Pulse 67; Resp 16; Pulse Ox 100% on R/A; 03 00:00 BP 92 / 62; Pulse 64; Resp 16; Pulse Ox 99% on R/A; km8 01:00 BP 91 / 64; Pulse 67; Resp 16; Pulse Ox 96% on R/A; 02:00 BP 111 / 82; Pulse 64; Resp 16; Pulse Ox 100% on R/A; km8 03:00 BP 99 / 65; Pulse 64; Resp 16; Pulse Ox 99% on R/A; km8 04:00 BP 98 / 68; Pulse 67; Resp 16; Pulse Ox 99% on R/A; km8 05:00 BP 101 / 76; Pulse 64; Resp 16; Pulse Ox 100% on R/A; km8 07/24 22:01 Body Mass Index 23.91 (61.23 kg, 160.02 cm) [facility] 07/24 22:01 Pain Scale: Adult 8 ED Course: 07/24 21:51 Patient arrived in ED. jb4 21:51 Roni White is Attending Physician. ci 21:52 Triage completed. jb4 21:52 Arm band placed on right wrist. jb4 22:20 Chi Silverio, ROBERTO is Primary Nurse. rv 22:21 Patient has correct armband on for positive identification. Client placed on continuous rv cardiac and pulse oximetry monitoring. NIBP monitoring applied. color television console monitor on. 22:21 No provider procedures requiring assistance completed. Inserted saline lock: 20 gauge rv in right antecubital area, using aseptic technique. Blood collected. 23:04 XRAY Chest (1 view) In Process Unspecified. EDMS 0203 00:41 CT Head Brain wo Cont In Process Unspecified. EDMS 06:05 IV discontinued, intact, bleeding controlled, No redness/swelling at site. Pressure 8 dressing applied. 06:06 Provided Education on: d/c teaching. 8 Administered Medications: 07/24 23:06 Drug: NS 0.9% IV 1000 ml IV at 1000 ml once Route: IV; Rate: 1000 ml; Site: right km8 antecubital; 07/25 01:00 Follow up: IV Status: Completed infusion; IV Intake: 1000ml [facility] Medication: 07/24 22:21 VIS not applicable for this client. rv Intake: 07/25 01:00 IV: 1000ml; Total: 1000ml. [facility] Outcome: 06:05 Discharge ordered by . ci 06:06 Discharged to home ambulatory, [facility] 06:06 Condition: good 06:06 Discharge instructions given to patient, Instructed on discharge instructions, follow up and referral plans. Demonstrated understanding of instructions, follow-up care, 06:07 Patient left the ED. km8 Signatures: Dispatcher [employer] EDBj Hugo RN RN jb4 Chi Silverio RN RN rv IheonhannahuRoni Katie RN RN km8
--- NOTE | 2023-07-25 06:06 | EDPHYS ---
Physician Documentation [facility] Name: Walt Velazquez Age: 52 yrs Sex: Male : 1970 Arrival Date: 07/24/2023 Time: 21:48 Bed 3 Private MD: ED Physician Roni White HPI: 07/25 05:58 This 52 yrs old Male presents to ER via EMS with complaints of INTOXICATION, ci CHEST PAIN. 05:58 Patient is a 52-year-old male with PMH EtOH abuse, bipolar, hypertension, seizure who ci presents with chest pain. Patient reports he was drinking, passed out and developed chest pain. Patient was just discharged from the hospital. Patient is intoxicated and confused. Patient did state that he did not want to live anymore. Upon further questioning he stated he does not want to .. Historical: - Allergies: 07/24 21:52 Trazodone; jb4 - PMHx: 21:52 Alcoholism; Bipolar II; Hypertensive disorder; Parkinsons; Seizure; jb4 - Immunization history:: Client reports having NOT received the Covid vaccine. Flu vaccine is not up to date. - Social history:: Patient uses street drugs, K2, Smoking status: Patient reports the use of cigarette tobacco products, unknown amount Patient uses alcohol, on a daily basis. street drugs, all drugs. - History obtained from: EMS. ROS: 07/25 05:58 Cardiovascular: Positive for chest pain, ci Exam: 05:58 Constitutional: This is a well developed, well nourished patient who is awake, alert, ci and in no acute distress. Vital Signs: 07/24 22:01 BP 114 / 82; Pulse 66; Resp 18; Temp 97.1(IR); Pulse Ox 98% on R/A; Weight 61.23 kg km8 (R); Height 5 ft. 3 in. (R); Pain 5/10; 22:30 BP 114 / 82; Pulse 68; Resp 16; Pulse Ox 98% on R/A; km8 23:00 BP 87 / 54; Pulse 60; Resp 16; Pulse Ox 98% on R/A; km8 23:30 BP 107 / 57; Pulse 67; Resp 16; Pulse Ox 100% on R/A; km8 02/03 00:00 BP 92 / 62; Pulse 64; Resp 16; Pulse Ox 99% on R/A; [facility] 01:00 BP 91 / 64; Pulse 67; Resp 16; Pulse Ox 96% on R/A; [facility] 02:00 BP 111 / 82; Pulse 64; Resp 16; Pulse Ox 100% on R/A; [facility] 03:00 BP 99 / 65; Pulse 64; Resp 16; Pulse Ox 99% on R/A; [facility] 04:00 BP 98 / 68; Pulse 67; Resp 16; Pulse Ox 99% on R/A; [facility] 05:00 BP 101 / 76; Pulse 64; Resp 16; Pulse Ox 100% on R/A; [facility] 07/24 22:01 Body Mass Index 23.91 (61.23 kg, 160.02 cm) [facility] 07/24 22:01 Pain Scale: Adult [facility] MDM: 07/24 21:57 Patient medically screened. ci 07/25 05:58 Differential Diagnosis Intoxication, ACS, pneumonia. Data reviewed: vital signs, nurses ci notes. Care significantly affected by the following chronic conditions: Hypertension. 06:06 ED course: Patient reassessed. Denies SI/HI. Denies chest pain. Patient is clinically ci sober, ambulates with a steady gait. Will discharge with instructions for close outpatient follow-up.. 02 22:13 Order name: Basic Metabolic Panel; Complete Time: 22:59 ci 07/24 22:13 Order name: CBC with Diff; Complete Time: 22:59 ci 02 22:13 Order name: NT PRO-BNP; Complete Time: 22:59 ci 07/25 00:18 Interpretation: NT PRO-BNP 360. ci 02 22:13 Order name: Troponin HS; Complete Time: 22:59 ci 02 22:13 Order name: ETOH Level; Complete Time: 22:59 ci 02 22:59 Interpretation: Abnormal: ETOH 315. ci 02 22:13 Order name: Hepatic Function; Complete Time: 22:59 ci 07/24 22:13 Order name: Urine Drug Screen; Complete Time: 00:18 ci 02 22:13 Order name: XRAY Chest (1 view) ci 07/25 06:03 Interpretation: CXR shows mild perihilar thickening with no acute consolidation or ci infiltrates. 07/24 23:00 Order name: CT Head Brain wo Cont ci 07/25 06:03 Interpretation: No acute abnormality. ci 07/24 22:13 Order name: EKG; Complete Time: 22:14 ci 07/24 22:13 Order name: Cardiac monitoring; Complete Time: 22:20 ci 07/24 22:13 Order name: EKG - Nurse/Tech; Complete Time: 22:20 ci 02 22:13 Order name: IV Saline Lock; Complete Time: 22:20 ci 07/24 22:13 Order name: Labs collected and sent; Complete Time: 22:20 ci 07/24 22:13 Order name: O2 Per Protocol; Complete Time: 22:20 ci 02 22:13 Order name: O2 Sat Monitoring; Complete Time: 22:20 ci 07/24 22:13 Order name: Suicide Screening ([place]); Complete Time: 22:20 ci 07/24 22:13 Order name: Seizure Precautions; Complete Time: 22:20 ci Administered Medications: 07/24 23:06 Drug: NS 0.9% IV 1000 ml IV at 1000 ml once Route: IV; Rate: 1000 ml; Site: right [facility] antecubital; 07/25 01:00 Follow up: IV Status: Completed infusion; IV Intake: 1000ml [facility] Disposition Summary: 07/25/23 06:05 Discharge Ordered Notes: Location: Home ci Condition: Stable ci Diagnosis - Chest pain, unspecified ci - Alcohol abuse with intoxication ci Followup: ci - With: Private Physician - When: 1 - 2 days - Reason: Recheck today's complaints, Re-evaluation by your physician Discharge Instructions: - Discharge Summary Sheet ci - Alcohol Intoxication, [id number] ci - Nonspecific Chest Pain, Adult, [id number] ci - Alcohol Abuse and Dependence Information, Adult ci Forms: - Medication Reconciliation Form ci - Thank You Letter ci - Antibiotic Education ci - Prescription Opioid Use ci - Patient Portal Instructions ci - Leadership Thank You Letter ci Signatures: Dispatcher [employer] Bj Hall, RN RN jb4 IheonhannahuRoni Katie RN RN km8
[2023-07-25 06:42] VITALS: BP 114/82; TEMP 97.1; O2SAT 98
--- NOTE | 2023-07-25 22:26 | RAD REPORT ---
CLINICAL HISTORY: CHEST PAIN. COMPARISON: None. TECHNIQUE: Single view AP chest radiograph(s). FINDINGS: Mild perihilar interstitial thickening. No infiltrate identified. No pleural effusion. No pneumothorax. Nonenlarged cardiomediastinal silhouette. No significant osseous abnormality. IMPRESSION: Mild perihilar interstitial thickening. No infiltrate identified. Electronically signed by: Lori Perdomo MD 07/24/2023 11:30 PM PARAMEDIC RN Due to temporary technical issues with the PACS/Fluency reporting system, reports are being signed by the in house radiologists without review as a courtesy to insure prompt reporting. The interpreting radiologist is fully responsible for the content of the report.
--- NOTE | 2023-07-25 22:27 | RAD REPORT ---
EXAM DESCRIPTION: HEAD BRAIN W/O CONTRAST CLINICAL HISTORY: CONFUSED. TECHNIQUE: Noncontrast CT through the head was performed. Axial, coronal, and sagittal reconstructio ns were created and sent to PACS. This exam was performed according to our departmental dose-optimiza tion program which includes use of Automated Exposure Control, adjustment of the mA and/or kV accordi ng to patient size and/or use of iterative reconstruction technique. COMPARISON: CT head from April 17, 2023. FINDINGS: There is diffuse atrophy throughout the brain parenchyma. Mild periventricular white matte r changes. Mild ex vacuo dilatation of the ventricular system. There is no intra-axial or extra-axial bleed. There is no mass or mass effect. Mild mucosal thickening in the right maxillary sinus. The remaining visualized paranasal sinuses and mastoid air cells are patent. No acute fracture is identified. Small midline forehead scalp hematoma. Chronic deformity of the left medial orbital wall. IMPRESSION: No acute intracranial abnormality identified. Chronic age-related and microvascular isch emic changes. Electronically signed by: Lori Perdomo MD 07/25/2023 12:57 AM SCALEMAN Due to temporary technical issues with the PACS/Fluency reporting system, reports are being signed by the in house radiologists without review as a courtesy to insure prompt reporting. The interpreting radiologist is fully responsible for the content of the report.
--- NOTE | 2023-07-27 15:08 | EKG ---
Test Date: 2023-07-24 Test Time: 16:26:05 Fiber Optics Supervisor: MEASUREMENT RESULTS: Intervals: Rate: 84 MS: 176 QRSD: 80 QT: 352 QTc: 415 [place]: P: 25 MS: 176 QRS: 50 T: 28 INTERPRETIVE STATEMENTS: Normal sinus rhythm Septal infarct, age undetermined Abnormal ECG Compared to ECG 07/23/2023 21:01:35 No significant changes Electronically Signed On 07-27-23 15:01:57 PEN MAKER by Cristhian Hernandez
== END ==
LOC: ER 21:48
DX: F10.229 Alcohol dependence with intoxication, unspecified (principal)
CPT/HCPCS: 36415; 70450; 71045; 80048; 80076; 80307; 82077; 83880; 84484; 85025; 93005; J7030

== ENCOUNTER → 2023-07-29 | Emergency (ER) | payer SELFPAY ==
--- OUTSIDE RECORDS SUMMARY | 2023-07-29 12:59 | XMS REPORT | Continuity of Care Document ---
Author Name Unknown Address [address] [facility] [place] [address] [facility] Address 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 Name Role Phone Pcp-None Primary Care Physician Unavailab HEMANT Adame Attending Clinician Unavailable Hemant Klein MD Attending Clinician [phone] Pan Pinto Attending Clinician Unavailab JESSICA Gallardo Attending Clinician Unavailable Rayray Driscoll MD Attending Clinician [phone] Jessica Prado MD Attending Clinician [phone] Oswald Murphy MD Attending Clinician [phone] DIYA CHOWDHURY Attending Clinician Unavailab Diya Mackey DO Attending Clinician [phone] Fidel Cuellar Attending Clinician Unavailable DIRK YARBROUGH Attending Clinician Unavailable Leticia Rowland Attending Clinician [phone] Dirk Yarbrough MD Attending Clinician [phone] Faye Portillo LVN Attending Clinician [phone] Pia Reddy Attending Clinician [phone] Vinnie Navarro Attending Clinician Unavailable OSWALD MURPHY Admitting Clinician Unavailable Oswald Murphy MD Admitting Clinician [phone] DIYA CHOWDHURY Admitting Clinician UnavailLeticia Gaytan Admitting Clinician Unavailable JESSICA PRADO Admitting Clinician Unavailable Jessica Prado MD Admitting Clinician [phone] Payers Payer Name Policy Type Policy Number Effective Date Expirati on Date Source [facility] [id number] 2022 00:00:00 Problems Condition Name Condition Details Condition Category Status Onset Date Resolution Date Last Treatment Date Treating Clinician Comments Source Alcohol withdrawal syndrome with complicati on Alcohol withdrawal syndrome with complicati on Disease Active 08-10 00:00: 00 [facility] Type 2 diabetes mellitus with other specified complicati on Type 2 diabetes mellitus with other specified complicati on Disease Active 12-29 00:00: 00 [facility] Dyslipidem ia Dyslipidem ia Disease Active 12-29 00:00: 00 [facility] Chest pain, unspecifie d type Chest pain, unspecifie d type Disease Active 12-28 00:00: 00 [facility] Priapism Priapism Disease Active 2013-06 1-06 00:00: 00 [facility] Allergies, Adverse Reactions, Alerts Allergy Name Allergy Type Status Severity Reaction(s) Onset Date Inactive Date Treating Clinician Comments Source No Known Drug Allergie s DA Active U 4-25 00:00: 00 [facility] No Known Drug Allergie s DA Active U 0 9-16 00:00: 00 [facility] No Known Drug Allergie s DA Active U 0 3-29 00:00: 00 [facility] No Known Drug Allergie s DA Active U 2019-06 2-16 00:00: 00 [facility] No Known Drug Allergie s DA Active U 2019-06 2-15 00:00: 00 [facility] No Known Drug Allergie s DA Active U 2019-06 2-02 00:00: 00 [facility] Trazodon e Propensi ty to adverse reaction s Active Other - See comments 10-06 00:00: 00 [facility] TRAZODON E DRUG INGREDI Active Other-Cmnt 10-06 00:00: 00 [facility] Social History Social Habit Start Date Stop Date Quantity Comments Source History of tobacco use Cigarette Smoker [facility] Exposure to SARS-CoV-2 (event) 2022-11-01 00:00:00 2022-11-11 13:57:00 Not sure [facility] Tobacco use and exposure 2022-08-10 00:00:00 2022-08-10 00:00:00 User of smokeless tobacco [facility] Alcohol intake 2022-08-10 00:00:00 2022-08-10 00:00:00 Current drinker of alcohol (finding) [facility] Tobacco Comment 2022-08-10 00:00:00 2022-08-10 00:00:00 1/2 a pack a day [facility] Sex Ass[birth year] At 1970 00:00:00 1970 00:00:00 [facility] Smoking Status Start Date Stop Date Source Smokes tobacco daily 2022-08-10 00:00:00 [facility] Medications Ordered Medication Name Filled Medication Name Start Date Stop Date Current Medication? Ordering Clinician Indication Dosage Frequency Signature (SIG) Comments Components Source NaCl 0.9% (NS) bolus infusion 1,000 mL 11-11 19:45: 00 11-11 20:23 :00 No 1000mL at 999 mL/hr, 1,000 mL, IV Piggyback, ONCE, 1 dose, On Thu11/11/22 at 1445, STAT [facility] multivitami n tablet 1 tablet 08-12 15:00: 00 Yes 1{tbl} 1 tablet, Oral, DAILY, First dose on Thu08/12/22 at 0900, Until Discontinu ed, Routine [facility] foLIC acid (FOLATE) tablet 1 mg 08-12 15:00: 00 Yes 1mg 1 mg, Oral, DAILY, First dose on Thu08/12/22 at 0900, Until Discontinu ed, Routine [facility] foLIC acid 1 mg tablet 08-12 00:00: 00 09-12 04:59 :00 No [id number] 1mg Take 1 tablet by mouth in the morning for 30 days. [facility] oxazepam (SERAX) capsule 15 mg 08-11 [...] Thu08/13/22 at 0600, Routine [Order 2 End] [facility] thiamine (VITAMIN B1) tablet 100 mg 08-11 16:15: 00 Yes 100mg 100 mg, Oral, DAILY, First dose on Thu08/11/22 at 1015, Until Discontinu ed, Routine [facility] enoxaparin (LOVENOX) injection 40 mg 08-10 23:00: 00 Yes 40mg 40 mg, Subcutaneo us, DAILY, First dose on Thu08/10/22 at 1700, Until Discontinu ed, Routine [facility] NaCl 0.9% (NS) IV infusion 1,000 mL 08-10 15:00: 00 Yes 1000mL at 125 mL/hr, IV Infusion, CONTINUOUS , Starting on Thu08/10/22 at 0900, Until Discontinu ed, Routine [facility] foLIC acid (FOLATE) 5 mg in NaCl 0.9% (NS) piggyback 08-10 15:00: 00 08-11 16:14 :47 No 5mg IV Piggyback, DAILY, First dose on Thu08/10/22 at 0900, Until Discontinu ed, 50 mL [facility] thiamine (VITAMIN B1) 100 mg in NaCl 0.9% (NS) piggyback 08-10 15:00: 00 08-10 16:08 :00 No 100mg IV Piggyback, DAILY, 1 dose, First dose on Thu08/10/22 at 0900, 50 mL [facility] LORazepam (ATIVAN) injection 2 mg 08-10 14:52: 57 Yes 2mg 2 mg, Slow IV Push, Q4HPRN, Starting on 08/10/22 at 0852, Until Discontinu ed, Routine, Seizures, Agitation, Anxiety [facility] Sliding Scale Insulin-Reg ular + Fsbg Testing 08-10 13:30: 00 Yes Subcutaneo us, AC+HS, First dose on Thu08/10/22 at 0730, Until Discontinu ed, Routine [facility] oxazepam (SERAX) capsule 15 mg 08-10 12:08: 05 Yes 15mg 15 mg, Oral, Q4HPRN, Starting on 08/10/22 at 0608, Until Discontinu ed, Routine, Only while awake for DBP equal to or greater than 100, HR equal to or greater than 100. [facility] dextrose 10% (D10W) bolus infusion 250 [...] unable to swallow or has mental changes. [facility] ondansetron (ZOFRAN (PF)) injection 4 mg 08-10 12:02: 53 Yes 4mg 4 mg, Slow IV Push, Q6HPRN, Starting on Thu08/10/22 at 0602, Until Discontinu ed, Routine, Nausea and Vomiting (N/V) [facility] ibuprofen (MOTRIN IB) tablet 200 mg 08-10 12:02: 45 Yes 200mg 200 mg, Oral, Q6HPRN, Starting on Thu08/10/22 at 0602, Until Discontinu ed, Routine, Pain (scale 1-3) [facility] NaCl 0.9% (NS) bolus infusion 1,000 mL 08-10 10:15: 00 08-10 13:00 :00 No 1000mL at 999 mL/hr, 1,000 mL, IV Infusion, ONCE, 1 dose, On Thu08/10/22 at 0415, STAT [facility] LORazepam (ATIVAN) injection 0.5 mg 08-10 09:15: 00 08-10 09:19 :00 No .5mg 0.5 mg, Slow IV Push, ONCE, 1 dose, On Thu08/10/22 at 0315, STAT [facility] LORazepam (ATIVAN) injection 1 mg 08-10 08:00: 00 08-10 07:05 :00 No 1mg 1 mg, Slow IV Push, ONCE NOW, 1 dose, On Thu08/10/22 at 0200, STAT [facility] thiamine (VITAMIN B1) injection 100 mg 08-10 06:45: 00 08-10 06:52 :00 No 100mg 100 mg, Intravenou s, ONCE, 1 dose, On 08/10/22 at 0045, JACIEL [facility] LORazepam (ATIVAN) injection 1 mg 08-10 05:15: 00 08-10 05:22 :00 No 1mg 1 mg, Slow IV Push, ONCE, 1 dose, On 08/09/22 at 2315, STAT [facility] ketorolac (TORADOL) injection 15 mg 2021-06 16:00: 00 04-06 14:50 :00 No 15mg 15 mg, Slow IV Push, ONCE, 1 dose, [facility] 04/06/22 at 1100[facility] (PF[facility] 4 mg 2021-06 15:45: 00 04-06 14:50 :00 No 4mg 4 mg, Slow IV Push, ONCE, 1 dose, On 04/06/22 at 1045, [facility] oxazepam (SERAX) capsule 15 mg 12-31 06:28: 17 01-01 06:29 :00 No 15mg 15 mg, Oral, Q12H TAPER, 2 doses, First dose on Thu12/31/21 at 0130, Last dose on Thu12/31/21 at 1330, Routine [facility] multivitami n tablet 12-31 00:00: 00 Yes [id number] 1{tbl} Take 1 tablet by mouth in the morning. [facility] thiamine 100 mg tablet 12-31 00:00: 00 Yes [id number] 100mg Take 1 tablet by mouth in the morning. [facility] aspirin 81 mg chewable tablet 12-31 00:00: 00 Yes [id number] 81mg Take 1 tablet by mouth in the morning. [facility] multivitami n tablet 12-31 00:00: 00 Yes [id number] 1{tbl} Take 1 tablet by mouth in the morning. [facility] thiamine 100 mg tablet 12-31 00:00: 00 Yes [id number] 100mg Take 1 tablet by mouth in the morning. [facility] aspirin 81 mg chewable tablet 2021-0 12-31 00:00: 00 Yes [id number] 81mg Take 1 tablet by mouth in the morning. [facility] multivitami n tablet 2021-0 12-31 00:00: 00 Yes [id number] 1{tbl} Take 1 tablet by mouth in the morning. [facility] thiamine 100 mg tablet 0 12-31 00:00: 00 Yes [id number] 100mg Take 1 tablet by mouth in the morning. [facility] aspirin 81 mg chewable tablet 0 12-31 00:00: 00 Yes [id number] 81mg Take 1 tablet by mouth in the morning. [facility] multivitami n tablet 0 12-31 00:00: 00 Yes [id number] 1{tbl} Take 1 tablet by mouth in the morning. [facility] thiamine 100 mg tablet 2021-0 12-31 00:00: 00 Yes [id number] 100mg Take 1 tablet by mouth in the morning. [facility] aspirin 81 mg chewable tablet 12-31 00:00: 00 Yes [id number] 81mg Take 1 tablet by mouth in the morning. [facility] multivitami n tablet 0 12-31 00:00: 00 Yes [id number] 1{tbl} Take 1 tablet by mouth in the morning. [facility] thiamine 100 mg tablet 0 12-31 00:00: 00 Yes [id number] 100mg Take 1 tablet by mouth in the morning. [facility] aspirin 81 mg chewable tablet 0 12-31 00:00: 00 Yes [id number] 81mg Take 1 tablet by mouth in the morning. [facility] multivitami n tablet 2021-0 12-31 00:00: 00 Yes [id number] 1{tbl} Take 1 tablet by mouth in the morning. [facility] thiamine 100 mg tablet 12-31 00:00: 00 Yes [id number] 100mg Take 1 tablet by mouth in the morning. [facility] aspirin 81 mg chewable tablet 12-31 00:00: 00 Yes [id number] 81mg Take 1 tablet by mouth in the morning. [facility] foLIC acid 1 mg tablet 12-31 00:00: 00 01-31 04:59 :00 No [id number] 1mg Take 1 tablet by mouth in the morning for 30 days. [facility] foLIC acid 1 mg tablet 12-31 00:00: 00 01-31 04:59 :00 No [id number] 1mg Take 1 tablet by mouth in the morning for 30 days. [facility] foLIC acid 1 mg tablet 12-31 00:00: 00 01-31 04:59 :00 No [id number] 1mg Take 1 tablet by mouth in the morning for 30 days. [facility] metFORMIN 500 mg tablet 12-30 00:00: 00 Yes [id number] 500mg Take 1 tablet by mouth in the morning and 1 tablet in the evening. Take with meals. [facility] metFORMIN 500 mg tablet 12-30 00:00: 00 Yes [id number] 500mg Take 1 tablet by mouth in the morning and 1 tablet in the evening. Take with meals. [facility] metFORMIN 500 mg tablet 12-30 00:00: 00 Yes [id number] 500mg Take 1 tablet by mouth in the morning and 1 tablet in the evening. Take with meals. [facility] metFORMIN 500 mg tablet 12-30 00:00: 00 Yes [id number] 500mg Take 1 tablet by mouth in the morning and 1 tablet in the evening. Take with meals. [facility] metFORMIN 500 mg tablet 12-30 00:00: 00 Yes [id number] 500mg Take 1 tablet by mouth in the morning and 1 tablet in the evening. Take with meals. [facility] metFORMIN 500 mg tablet 12-30 00:00: 00 Yes [id number] 500mg Take 1 tablet by mouth in the morning and 1 tablet in the evening. Take with meals. [facility] aspirin chewable tablet 81 mg 12-29 14:00: 00 Yes 81mg 81 mg, Oral, DAILY, First dose on 12/29/21 at 0900, Until Discontinu ed, Routine [facility] sulfur hexafluorid e microsphr (LUMASON) injection 5 mL 12-29 13:45: 00 12-29 13:45 :00 No [id number] 5mL 5 mL, Intravenou s, ONCE, 1 dose, On 12/29/21 at 0845, Routine
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 medication : STEFANIE GORMAN [facility] enoxaparin (LOVENOX) injection 40 mg 12-29 13:00: 00 Yes 40mg 40 mg, Subcutaneo us, Q24H, First dose on 12/29/21 at 0800, Until Discontinu ed, Routine [facility] Sliding Scale Insulin - Lispro (HumaLOG) + Fsbg Testing 12-29 13:00: 00 Yes Subcutaneo us, TID MEALS+HS, First dose on 12/29/21 at 0800, Until Discontinu ed, Routine [facility] diazePAM (VALIUM) injection 10 mg 12-29 05:30: 00 12-29 04:40 :00 No 10mg 10 mg, Intravenou s, ONCE, 1 dose, On 12/29/21 at 0030, Routine [facility] diazePAM (VALIUM) injection 10 mg 12-29 04:15: 00 12-29 03:17 :00 No 10mg 10 mg, Intravenou s, ONCE, 1 dose, On 12/28/21 at 2315, Routine [facility] diazePAM (VALIUM) injection 5 mg 12-29 03:45: 01 Yes 5mg 5 mg, Intravenou s, QIDPRN, Starting on 12/28/21 at 2245, Until Discontinu ed, Routine, Seizures, Agitation [facility] foLIC acid (FOLATE) tablet 1 mg 12-29 03:45: 00 Yes 1mg 1 mg, Oral, DAILY, First dose on 12/28/21 at 2245, Until Discontinu ed, Routine [facility] thiamine (VITAMIN B1) tablet 100 mg 12-29 03:45: 00 Yes 100mg 100 mg, Oral, DAILY, First dose (after last modificati on) on 12/28/21 at 2245, Until Discontinu ed, Routine [facility] glucagon (GLUCAGEN DIAGNOSTIC KIT) injection 1 mg 12-29 03:42: 19 Yes 1mg 1 mg, Intramuscu lar, PRN, Starting on 12/28/21 at 2242, Until Discontinu ed, JACIEL, Blood Glucose < or = 70 mg/dL and patient is unable to swallow or has mental changes. [facility] dextrose 10% (D10W) bolus infusion 250 [...] blood glucose is < 80 mg/dL, repeat.
[facility] LORazepam (ATIVAN) injection 1 mg 12-29 03:30: 00 12-29 02:32 :00 No 1mg 1 mg, Intravenou s, ONCE, 1 dose, On 12/28/21 at 2230, Routine
Is the medication being used for status epilepticu s? No [facility] oxazepam (SERAX) capsule 15 mg 12-29 00:28: 20 Yes 15mg 15 mg, Oral, Q4HPRN, Starting on 12/28/21 at 1928, Until Discontinu ed, Routine, Only while awake for DBP equal to or greater than 100, HR equal to or greater than 100. [facility] ondansetron (ZOFRAN (PF)) injection 4 mg 12-29 00:23: 47 Yes 4mg 4 mg, Slow IV Push, Q6HPRN, Starting on 12/28/21 at 1923, Until Discontinu ed, Routine, Nausea and Vomiting (N/V) [facility] acetaminoph en (TYLENOL) tablet 650 mg 12-29 00:23: 37 Yes 650mg 650 mg, Oral, Q6HPRN, Starting on 12/28/21 at 1923, Until Discontinu ed, Routine, Pain (scale 1-3), Temp > 38.5 C [facility] chlordiazeP OXIDE (LIBRIUM) capsule 25 mg 12-28 23:15: 00 12-28 23:24 :00 No 25mg 25 mg, Oral, ONCE, 1 dose, On 12/28/21 at 1815, JACIEL [facility] NaCl 0.9% (NS) bolus infusion 2,000 mL 12-28 22:45: 00 12-28 23:18 :00 No 2000mL at 999 mL/hr, 2,000 mL, IV Infusion, ONCE, 1 dose, On 12/28/21 at 1745, JACIEL [facility] LORazepam (ATIVAN) injection 1 mg 12-28 20:45: 00 12-28 20:49 :00 No 1mg 1 mg, Slow IV Push, ONCE, 1 dose, On 12/28/21 at 1545, STAT
Is the medication being used for status epilepticu s? No [facility] acetaminoph en (TYLENOL) 500 mg tablet 10-06 00:00: 00 Yes 500mg Take 1 Tab by mouth every 6 (six) hours as needed for Pain. [facility] acetaminoph en (TYLENOL) 500 mg tablet 10-06 00:00: 00 Yes 500mg Take 1 Tab by mouth every 6 (six) hours as needed for Pain. [facility] acetaminoph en (TYLENOL) 500 mg tablet 10-06 00:00: 00 Yes 500mg Take 1 Tab by mouth every 6 (six) hours as needed for Pain. [facility] acetaminoph en (TYLENOL) 500 mg tablet 10-06 00:00: 00 Yes 500mg Take 1 Tab by mouth every 6 (six) hours as needed for Pain. [facility] acetaminoph en (TYLENOL) 500 mg tablet 10-06 00:00: 00 Yes 500mg Take 1 Tab by mouth every 6 (six) hours as needed for Pain. [facility] acetaminoph en (TYLENOL) 500 mg tablet 10-06 00:00: 00 Yes 500mg Take 1 Tab by mouth every 6 (six) hours as needed for Pain. [facility] Vital Signs Vital Name Observation Time Observation Value Comments S alliglo Systolic blood pressure 2022-11-11 20:31:31 116 mm[Hg] [facility] Diastolic blood pressure 2022-11-11 20:31:31 77 mm[Hg] [facility] Heart rate 2022-11-11 20:31:31 84 /min [facility] Respiratory rate 2022-11-11 20:31:31 12 /min [facility] Oxygen saturation in Arterial blood by Pulse oximetry 2022-11-11 20:31:31 90 /min [facility] Body temperature 2022-11-11 18:49:00 37.11 Theresa [facility] Body height 2022-11-11 18:49:00 160 cm [facility] Body weight 2022-11-11 18:49:00 68.04 kg [facility] BMI 2022-11-11 18:49:00 26.57 kg/m2 [facility] Body temperature 2022-08-11 14:00:00 36.5 Theresa [facility] Systolic blood pressure 2022-08-11 10:00:00 116 mm[Hg] [facility] Diastolic blood pressure 2022-08-11 10:00:00 71 mm[Hg] [facility] Heart rate 2022-08-11 10:00:00 70 /min [facility] Respiratory rate 2022-08-11 10:00:00 16 /min [facility] Body weight 2022-08-11 10:00:00 65.499 kg [facility] BMI 2022-08-11 10:00:00 25.58 kg/m2 [facility] Oxygen saturation in Arterial blood by Pulse oximetry 2022-08-11 10:00:00 100 /min [facility] Body height 2022-08-10 22:12:00 160 cm [facility] Systolic blood pressure 2022-04-06 16:00:00 125 mm[Hg] [facility] Diastolic blood pressure 2022-04-06 16:00:00 75 mm[Hg] [facility] Heart rate 2022-04-06 16:00:00 87 /min [facility] Respiratory rate 2022-04-06 16:00:00 22 /min [facility] Oxygen saturation in Arterial blood by Pulse oximetry 2022-04-06 16:00:00 98 /min [facility] Body temperature 2022-04-06 14:41:00 37 Theresa [facility] Body height 2022-04-06 14:41:00 160 cm [facility] Body weight 2022-04-06 14:41:00 63.504 kg [facility] BMI 2022-04-06 14:41:00 24.80 kg/m2 [facility] Systolic blood pressure 2022-01-20 02:27:00 121 mm[Hg] [facility] Diastolic blood pressure 2022-01-20 02:27:00 75 mm[Hg] [facility] Heart rate 2022-01-20 02:27:00 79 /min [facility] Respiratory rate 2022-01-20 02:27:00 12 /min [facility] Oxygen saturation in Arterial blood by Pulse oximetry 2022-01-20 02:27:00 98 /min [facility] Body temperature 2022-01-19 22:19:00 36.44 Theresa [facility] Body weight 2022-01-19 22:19:00 60.328 kg [facility] BMI 2022-01-19 22:19:00 23.56 kg/m2 [facility] Systolic blood pressure 2021-12-30 20:52:00 134 mm[Hg] [facility] Diastolic blood pressure 2021-12-30 20:52:00 76 mm[Hg] [facility] Heart rate 2021-12-30 20:52:00 67 /min [facility] Body temperature 2021-12-30 20:26:00 36.67 Theresa [facility] Oxygen saturation in Arterial blood by Pulse oximetry 2021-12-30 20:26:00 99 /min [facility] Respiratory rate 2021-12-30 16:21:00 18 /min [facility] Body weight 2021-12-30 08:27:00 60.464 kg [facility] BMI 2021-12-30 08:27:00 23.61 kg/m2 [facility] Body height 2021-12-29 01:29:00 160 cm [facility] Procedures Procedure Date / Time Performed Performing Clinician Source MAGNESIUM 2022-11-11 19:05:00 Hemant Klein [facility] BASIC METABOLIC PANEL (NA, K, CL, CO2, GLUCOSE, BUN, CREATININE, CA) 2022-11-11 19:05:00 Hemant Klein [facility] ETHANOL 2022-11-11 19:05:00 Hemant Klein [facility] CBC WITH DIFF 2022-11-11 19:05:00 Hemant Klein [facility] POCT GLUCOSE (AUTOMATED) 2022-08-11 13:36:00 Arvind Prado [facility] PHOSPHORUS 2022-08-11 10:35:00 [facility] MAGNESIUM 2022-08-11 10:35:00 Jessica Prado [facility] AMMONIA, PLASMA 2022-08-11 10:35:00 Jessica Prado [facility] COMP. METABOLIC PANEL ([id number]) 2022-08-11 10:35[facility] 2022-08-11 10:35:00 Oswald Murphy [facility] POCT GLUCOSE (AUTOMATED) 2022-08-11 02:15:00 Arvind Prado [facility] POCT GLUCOSE (AUTOMATED) 2022-08-10 23:10:00 Arvind Prado gregoria [facility] POCT GLUCOSE (AUTOMATED) 2022-08-10 18:20:00 Arvind Prado gregoria [facility] POCT GLUCOSE (AUTOMATED) 2022-08-10 14:11:00 Arvind Prado [facility] POCT GLUCOSE (AUTOMATED) 2022-08-10 10:59:00 Gopal Driscoll [facility] COVID-19 (ID NOW RAPID TESTING) 2022-08-10 07:17:00 Rayray Driscoll [facility] LAB ONLY COVID INTERPRETATION 2022-08-10 07:17:00 Rayray Driscoll [facility] HB ECG ROUTINE & RHYTHM STRIP 2022-08-10 06:03:48 Rayray Driscoll [facility] URINALYSIS 2022-08-10 05:46:00 [facility] URINE DRUG (IMMUNOASSAY) - COMPREHENSIVE DRUG SCREEN W/O REFLEX 2022-08-10 05:45:00 Rayray Driscoll [facility] CREATINE KINASE 2022-08-10 05:16:00 [facility] 2022-08-10 05:16:00 Rayray Driscoll [facility] MAGNESIUM 2022-08-10 05:16:00 Rayray Driscoll [facility] TROPONIN I 2022-08-10 05:16:00 [facility] COMP. METABOLIC PANEL ([id number]) 2022-08-10 05:16:00 Rayray Driscoll [facility] ETHANOL 2022-08-10 05:16:00 Rayray Driscoll [facility] CBC WITH DIFF 2022-08-10 05:16:00 Rayray Driscoll [facility] N-TERMINAL PRO-BNP 2022-08-10 05:16:00 Rayray Driscoll [facility] CRITICAL CARE 2022-08-10 04:52:00 Rayray Driscoll [facility] XR CHEST 1 VW 2022-04-06 14:51:50 Diya Chowdhury [facility] LIPASE 2022-04-06 14:42:00 [facility] 2022-04-06 14:42:00 Diya Chowdhury Un [facility] COMP. METABOLIC PANEL ([id number]) 2022-04-06 14:42:00 Diya Chowdhury [facility] CBC WITH DIFF 2022-04-06 14:42:00 Diya Chowdhury [facility] PROTHROMBIN TIME / INR 2022-04-06 14:42:00 Diya Chowdhury [facility] ACTIVATED PARTIAL THRMPLAS NELDA 2022-04-06 14:42:00 Diya Chowdhury [facility] LACTIC ACID WHOLE BLOOD 2022-01-20 00:22:00 Leticia Baldwin [facility] URINE DRUG (IMMUNOASSAY) - COMPREHENSIVE DRUG SCREEN 2022-01-19 23:10:00 Leticia Baldwin [facility] URINALYSIS 2022-01-19 23:10:00 Leticia Baldwin [facility] TROPONIN I 2022-01-19 23:00:00 Leticia Baldwin [facility] COMP. METABOLIC PANEL (42164) 2022-01-19 23:00:00 Leticia Baldwin [facility] LITHIUM 2022-01-19 23:00:00 [facility] 2022-01-19 23:00:00 [facility] CBC WITH DIFF 2022-01-19 23:00:00 Leticia Baldwin [facility] COVID-19 (ID NOW RAPID TESTING) 2022-01-19 23:00:00 Leticia Baldwin [facility] CT HEAD WO CONTRAST 2022-01-19 22:49:00 Leticia Baldwin [facility] XR CHEST 1 VW 2022-01-19 22:41:00 Leticia Baldwin [facility] POCT GLUCOSE (AUTOMATED) 2022-01-19 22:25:00 Leticia Baldwin [facility] POCT GLUCOSE (AUTOMATED) 2021-12-30 21:55:00 Arvind Prado [facility] POCT GLUCOSE (AUTOMATED) 2021-12-30 16:21:00 Arvind Prado [facility] POCT GLUCOSE (AUTOMATED) 2021-12-30 12:30:00 Arvind Prado [facility] HEPATIC FUNCTION PANEL ([id number]) (ALB,T.PRO,BILI T,BU/BC,ALT,AST,ALK PHOS) 2021-12-30 09:28:00 Maira Gaitan [facility] POCT GLUCOSE (AUTOMATED) 2021-12-30 02:11:00 Arvind Prado [facility] POCT GLUCOSE (AUTOMATED) 2021-12-29 21:41:00 Arvind Prado [facility] POCT GLUCOSE (AUTOMATED) 2021-12-29 16:37:00 Arvind Prado [facility] TRANSTHORACIC ECHO (TTE) COMPLETE W/ CONTRAST 2021-12-29 13:05:00 Jessica Prado [facility] POCT GLUCOSE (AUTOMATED) 2021-12-29 12:41:00 Arvind Prado [facility] TROPONIN I 2021-12-29 09:42:00 [place], [facility] TROPONIN I 2021-12-29 04:55:00 [facility] HEAD WO CONTRAST 2021-12-28 21:18:22 Poppy Renteria [facility] AMMONIA, PLASMA 2021-12-28 21:00:00 Pia Renteria [facility] COVID-19 (ID NOW RAPID TESTING) 2021-12-28 20:42:00 Pia Renteria [facility] LAB ONLY COVID INTERPRETATION 2021-12-28 20:42:00 Pia Renteria [facility] URINE DRUG (IMMUNOASSAY) - COMPREHENSIVE DRUG SCREEN W/O REFLEX 2021-12-28 20:42:00 Pia Renteria [facility] URINALYSIS 2021-12-28 20:40:00 [facility] 2021-12-28 20:40:00 Corina Renteria [facility] TROPONIN I 2021-12-28 20:40:00 Pia Renteria [facility] THYROID STIMULATING HORMONE 2021-12-28 20:40:00 Jessica Prado [facility] COMP. METABOLIC PANEL (31090) 2021-12-28 20:40:00 Pia Renteria [facility] LIPID PANEL (01188)(TOTAL CHOLESTEROL, TRIGLYCERIDES, HDL) 2021-12-28 20:40:00 Demetrius Langford [facility] ETHANOL 2021-12-28 20:40:00 Demetrius Langford [facility] CBC WITH DIFF 2021-12-28 20:40:00 Pia Renteria [facility] GLYCOSYLATED HEMOGLOBIN (A1C) 2021-12-28 20:40:00 Jessica Prado [facility] PROTHROMBIN TIME / INR 2021-12-28 20:40:00 Lesly Renteria [facility] XR CHEST 1 VW 2021-12-28 20:16:00 Pia Renteria [facility] HB ECG ROUTINE & RHYTHM STRIP 2021-12-28 20:04:59 Pia Renteria [facility] Encounters Start Date/Time End Date/Time Encounter Type Admission Type Attending [facility] Care Department Encounter ID Source 2021-09-17 16:45:00 Inpatient [facility] [id number] [facility] 2020-06-06 16:07:00 Inpatient [facility] [id number] [facility] 2020-06-06 06:20:00 Inpatient [facility] [id number] [facility] 2020-06-05 19:35:00 Inpatient [facility] [id number] [facility] 2020-05-23 19:53:00 Inpatient [facility] [id number] [facility] 2020-05-23 19:53:00 Inpatient [facility] [id number] [facility] 2022-11-11 13:50:00 2022-11-11 16:07:00 Emergency X HEMANT KLEIN [facility] [id number] [facility] 2022-11-11 13:50:00 2022-11-11 16:07:00 Emergency Jessica [facility] [id number] [id number] [id number] [facility] 2022-10-14 20:59:00 2022-10-14 20:59:00 Emergency [facility] [id number] [facility] 2022-10-14 20:59:00 2022-10-14 20:59:00 Emergency Emergency ClareDeborah brotherschloe [facility] [id number] [facility] 2022-08-09 22:59:00 2022-08-11 13:02:00 Outpatient JESSICA GAINES [facility] [id number] [facility] 2022-08-09 22:59:00 2022-08-11 13:02:00 Emergency Rayray Driscoll Jelani Edionwe[facility] [id number] 350.1.13.10 4.2.7.2.686 [id number] [facility] 2022-04-06 09:38:00 2022-04-06 11:42:00 Emergency X DIYA CHOWDHURY [facility] ERT [id number] [facility] 2022-04-06 09:38:00 2022-04-06 11:42:00 Emergency Diya Chowdhury [facility] [id number] 350.1.13.10 4.2.7.2.686 [id number] [facility] 2022-03-07 12:38:00 2022-03-07 12:38:00 Emergency [facility] [id number] [facility] 2022-03-07 12:38:00 2022-03-07 12:38:00 Emergency Emergency Fidel Cuellar [facility] [id number] [facility] 2022-01-19 17:18:00 2022-01-19 22:00:00 Emergency X DIRK YARBROUGH [facility] ERT [id number] [facility] 2022-01-19 17:18:00 2022-01-19 22:00:00 Emergency Leticia Baldwin Julio C [facility] 1.2840.114 350.1.13.10 4.2.7.2.686 [id number] [facility] 2021-12-31 00:00:00 2021-12-31 00:00:00 Transition of Care Faye Portillo 1.2840.114 350.1.13.10 4.2.7.2.686 [id number] [facility] 2021-12-28 14:53:00 2021-12-30 17:42:00 Inpatient X JESSICA PRADO [facility] MAR[facility] [id number] [facility] 2021-12-28 14:53:00 2021-12-30 17:42:00 Hospital Encounter Pia Renteria Jelani [facility] [id number] 350.1.13.10 4.2.7.2.686 [id number] [facility] 2021-09-17 16:47:00 2021-09-17 16:47:00 Emergency [facility] [id number] [facility] 2020-06-06 16:07:00 2020-06-06 16:07:00 Emergency [facility] [id number] [facility] Results Test Description Test Time Test Comments Results Resul t Comments Source ETHANOL 2022-11-11 19:45:56 ALCOHOL<10mg/dL0 11/11/2022 2:45 PM [facility]<10 Sgygsgdm37-741 Toxic>100 Depression of MANAGER GAMES>400 [facility] 19:41:47* Test Item Value Reference Range Interpretation Comme nts MAGNESIUM (test code = 1309465792) 1.8 mg/dL 1.7-2.4 Lab Interpretation (test cod e = 15384-8) Normal [facility] WITH [id number] 19:25:26* Test Item Value Reference Range Interpretation [...] 33.9 g/dL 31.2-35.0 RDW-SD (test code = 63687-0) 46.0 fL 38.5-51.6 RDW-CV (test code = 788-0) 13.5 % 12.1-15.4 PLT (test code = 777-3) 237 See_Comment [Automated messa ge] The system which generated this result transmitted reference range: 150 - 328 10*3/?L. The reference range was not used to interpret this result as normal/abnormal. MPV (test code = 92226-7) 8.9 fL 9.8-13.0 L NRBC/100 WBC (test code = 3366768809) 0.0 See_Comment [Automated [employer] ssage] The system which generated this result transmitted reference range: 0.0 - 10.0 /100 WBCs. The reference range was not used to interpret this result as normal/abnormal. NRBC x10^3 (test code = 9384257633) See_Comment [Automated [employer] ge] The system which generated this result transmitted reference range: 10*3/?L. The reference range was not used to interpret this result as normal/abnormal. GRAN MAT (NEUT) % (test code = 770-8) 71.2 % IMM GRAN % (test code = 0302132805) 0.30 % LYMPH % (test code = 736-9) 18.2 % MONO % (test code = 5905-5) 8.4 % EOS % (test code = 713-8) 1.0 % BASO % (test code = 706-2) 0.9 % GRAN MAT x10^3(ANC) (test code = 5337590818) 4.86 10*3/uL 1.99-6.95 IMM GRAN x10^3 (test code = 5082293718) 0.00-0.06 LYMPH x10^3 (test code = 731-0) 1.24 10*3/uL 1.09-3.23 MONO x10^3 (test code = 742-7) 0.57 10*3/uL 0.36-1.02 EOS x10^3 (test code = 711-2) 0.07 10*3/uL 0.06-0.53 BASO x10^3 (test code = 704-7) 0.06 10*3/uL 0.01-0.09 Lab Interpretation (test code = 88210-2) [facility]normal [facility] Rflx Cult/Hvxoc2393-99-42 22:20:00* Test Item Value Reference Range Interpretation Comme nts Color,Urine (test code = UCOL) Yellow Yellow Clarity,Urine (test code = UCLAR) Clear Clear Ph, Urine (test code = UPH) 7.0 5.0-9.0 N Specific [place],Urine (test code = USG) 1.020 1.005-1.030 N [...] code = ULEU) Negative mg/dL Negative Drug Screen,Pcsvv1978-22-26 22:20:00* Test Item Value Reference Range Interpretation [...] UPROP) Negative Negative Complete Blood Count Auto Amgm8989-11-51 21:21:00* Test Item Value Reference Range Interpretation [...] code = NRBCP) 0 % Comprehensive Metabolic Hggui1333-04-05 21:21:00* Test Item Value Reference Range Interpretation [...] a race coefficient. Additional information canbe found at:[email or web address]_[email or web address] 5.pdf ([email or web address]) [Automated message] The system [...] = ALP) 134 U/L 46-116 H Ethanol Ojddw0246-30-31 21:21:00* Test Item Value Reference Range Interpretation Comme nts Ethanol (test code = ETOH) < 3 mg/dL The pharmacologi yudy response to blood alcohol levels mayvary from individual to individual. The fatal concentrationhas been reported to be >400mg/dL. POCT GLUCOSE (AUTOMATED)2022-08-11 13:40:35* Test Item Value Reference Range Interpretation Comme nts POCT GLU (test code = 8628332578) 121 mg/dL 70-110 H Lab Interpretation (test cod e = 44931-0) Abnormal [facility] GLUCOSE (AUTOMATED)2022-08-11 02:18:58* Test Item Value Reference Range Interpretation Comme nts POCT GLU (test code = 4407575181) 183 mg/dL 70-110 H Lab Interpretation (test cod e = 36446-6) Abnormal [facility] GLUCOSE (AUTOMATED)2022-08-10 23:16:11* Test Item Value Reference Range Interpretation Comme nts POCT GLU (test code = 9612528707) 176 mg/dL 70-110 H Lab Interpretation (test cod e = 86872-3) Abnormal [facility] GLUCOSE (AUTOMATED)2022-08-10 18:22:51* Test Item Value Reference Range Interpretation Comme nts POCT GLU (test code = 1498593405) 165 mg/dL 70-110 H Lab Interpretation (test cod e = 53749-3) Abnormal [facility] GLUCOSE (AUTOMATED)2022-08-10 14:18:05* Test Item Value Reference Range Interpretation Comme nts POCT GLU (test code = 8516614792) 138 mg/dL 70-110 H Lab Interpretation (test cod e = 96241-5) Abnormal [facility] GLUCOSE (AUTOMATED)2022-08-10 11:01:21* Test Item Value Reference Range Interpretation Comme nts POCT GLU (test code = 5888831022) 143 mg/dL 70-110 H Lab Interpretation (test cod e = 16057-2) Abnormal [facility] [id number] 06:51:18* Test Item Value Reference Range Interpretation Comme nts TROPONIN I (test code = 6773204390) 0.008 ng/mL <=0.034 JUAN ALBERTO (test code [...] of biotin. Lab Interpretation (test code = 34897-5) Normal [facility]AL ZRG-[id number] 06:47:37* Test Item Value Reference Range Interpretation Comme nts NT-proBNP (test code = 5573394316) 37 pg/mL <=125 JUAN ALBERTO (test code = JUAN ALBERTO) Biotin has been reported to cause a negative bias, interpret results relative to patient's use of biotin. Lab Interpretation (test code = 81842-2) Normal [facility] CenterETHANOL2023-02-19 06:25:52 ALCOHOL<10mg/dL08/10/2022 12:[facility] Ajxorgcb27-399 Toxic>100 Depression of MANAGER GAMES>400 [facility]OLIC PANEL (36633)2022-08-10 06:19:15* Test Item Value Reference Range Interpretation Comme nts NA (test code = 3179567080) 135 mmol/L 135-145 K (test code = 0361391065) 4.3 mmol/L 3.5-5.0 CL (test code = 2899031563) 98 mmol/L 98-108 CO2 TOTAL (test code = 2429256629) 30 mmol/L 23-31 AGAP (test code = 9786210183) 7 2-16 BUN (test code = 3262561838) 11 mg/dL 7-23 GLUCOSE (test code = 0619193753) 153 mg/dL 70-110 H CREATININE (test code = 8704971734) 0.77 mg/dL 0.60-1.25 TOTAL BILI (test code = 2557914732) 0.9 mg/dL 0.1-1.1 CALCIUM (test code = 8578876453) 10.0 mg/dL 8.6-10.6 T PROTEIN (test code = 5523731122) 7.7 g/dL 6.3-8.2 ALBUMIN (test code = 1955108092) 4.6 g/dL 3.5-5.0 ALK PHOS (test code = 2897983787) 92 U/L 34-122 ALTv (test code = 1742-6) 35 U/L 5-50 AST(SGOT) (test code = 1035648494) 42 U/L 13-40 H eGFR (test code = 0691970721) 106.1 mL/min/1.73m2 JUAN ALBERTO (test code = [...] imaging tests). Lab Interpretation (test code = 51024-1) Abnormal [facility]UM2023-02-19 06:19:15* Test Item Value Reference Range Interpretation Comme nts MAGNESIUM (test code = 5023019924) 2.2 mg/dL 1.7-2.4 Lab Interpretation (test cod e = 39826-8) Normal [facility] CenterL[facility]ASE2023-02-19 06:18:55* Test Item Value Reference Range Interpretation Comme nts LIPASE (test code = 5421327912) 18 U/L 0-220 Lab Interpretation (test cod e = 34496-1) Normal [facility] CenterCREATINE [id number] 06:18:55* Test Item Value Reference Range Interpretation Comme nts CK (test code = 4294695682) 174 U/L 33-194 Lab Interpretation (test cod e = 21298-5) Normal [facility] CenterCBC WITH [id number] 06:02:35* Test Item Value Reference Range Interpretation Comme nts WBC (test code = 6690-2) 7.50 See_Comment [Automated [employer]] The system which generated this result transmitted reference range: 4.20 - 10.70 10*3/?L. The reference range was not used to interpret this result as normal/abnormal. RBC (test code = 789-8) 4.80 See_Comment [Automated [employer]] The system which generated this result transmitted [...] 32.4 g/dL 31.2-35.0 RDW-SD (test code = 23116-9) 50.2 fL 38.5-51.6 RDW-CV (test code = 788-0) 14.3 % 12.1-15.4 PLT (test code = 777-3) 241 See_Comment [Automated messa ge] The system which generated this result transmitted reference range: 150 - 328 10*3/?L. The reference range was not used to interpret this result as normal/abnormal. MPV (test code = 03095-6) 8.6 fL 9.8-13.0 L NRBC/100 WBC (test code = 2948277984) 0.0 See_Comment [Automated [employer] ssage] The system which generated this result transmitted reference range: 0.0 - 10.0 /100 WBCs. The reference range was not used to interpret this result as normal/abnormal. NRBC x10^3 (test code = 5896780996) See_Comment [Automated messa ge] The system which generated this result transmitted reference range: 10*3/?L. The reference range was not used to interpret this result as normal/abnormal. GRAN MAT (NEUT) % (test code = 770-8) 63.9 % IMM GRAN % (test code = 3063330804) 0.50 % LYMPH % (test code = 736-9) 17.6 % MONO % (test code = 5905-5) 16.5 % EOS % (test code = 713-8) 0.7 % BASO % (test code = 706-2) 0.8 % GRAN MAT x10^3(ANC) (test code = 5912689224) 4.79 10*3/uL 1.99-6.95 IMM GRAN x10^3 (test code = 5114711946) 0.04 10*3/uL 0.00-0.06 LYMPH x10^3 (test code = 731-0) 1.32 10*3/uL 1.09-3.23 MONO x10^3 (test code = 742-7) 1.24 10*3/uL 0.36-1.02 H EOS x10^3 (test code = 711-2) 0.05 10*3/uL 0.06-0.53 L BASO x10^3 (test code = 704-7) 0.06 10*3/uL 0.01-0.09 Lab Interpretation (test code = 06687-8) Abnormal [facility] CenterTR[facility] [id number] 15:15:32* Test Item Value Reference Range Interpretation Comments TROPONIN I (test code = 6341108486) 0.007 ng/mL See_Comment [Automated message] The system [...] of biotin. Lab Interpretation (test code = 93351-8) Normal [facility] CenteraPTT2022-10-16 15:08:29* Test Item Value Reference Range Interpretation Comme [facility] APTT Patient (test code = 3173-2) See_Comment [Automated message] The system which generated this result transmitted reference range: 23 - 38 Seconds. The reference range was not used to interpret this result as normal/abnormal. JUAN ALBERTO (test code = JUAN ALBERTO) The [facility] patient population mean normal value for aPTT is 30 seconds. Lab Interpretation (test code = 64765-1) Normal [facility] CenterPROTHROMBIN TIME / [id number] 15:06:28* Test Item Value Reference Range Interpretation Comme [facility] PROTIME PATIENT (test code = 5964-2) See_Comment [Automated [employer]] The system which generated this result transmitted reference range: 12.0 - 14.7 Seconds. The reference range was not used to interpret this result as normal/abnormal. INR (test code = 6301-6) Normal INR <1.1; Warfarin Therapeutic range 2.0 to 3.0 or 2.5 to 3.5, depending upon the indications. Lab Interpretation (test code = 24273-9) Normal [facility] CenterCOMP. METABOLIC PANEL (34997)2022-04-06 15:03:31* Test Item Value Reference Range Interpretation Comme nts NA (test code = 3141336209) 136 mmol/L 135-145 K (test code = 9829046157) 5.0 mmol/L 3.5-5 CL (test code = 5710832630) 104 mmol/L 98-108 CO2 TOTAL (test code = 0144300401) 21 mmol/L 23-31 L AGAP (test code = 4902239420) 2-16 BUN (test code = 6848602836) 11 mg/dL 7-23 GLUCOSE (test code = 0248640186) 162 mg/dL 70-110 H CREATININE (test code = 4815935956) 0.52 mg/dL 0.6-1.25 L TOTAL BILI (test code = 2241239350) 1.0 mg/dL 0.1-1.1 CALCIUM (test code = 2468527103) 9.3 mg/dL 8.6-10.6 T PROTEIN (test code = 9011227959) 7.4 g/dL 6.3-8.2 ALBUMIN (test code = 5798581274) 4.4 g/dL 3.5-5 ALK PHOS (test code = 2834366602) 134 U/L 34-122 H ALTv (test code = 1742-6) 17 U/L 5-50 AST(SGOT) (test code = 6798005371) 38 U/L 13-40 eGFR (test code = 9224858321) mL/min/1.73m2 JUAN ALBERTO (test code = JUAN [...] imaging tests). Lab Interpretation (test code = 01291-2) Abnormal [facility] CenterLIPASE, [id number] 15:03:31* Test Item Value Reference Range Interpretation Comme nts LIPASE (test code = 9273345528) 29 U/L 0-220 Lab Interpretation (test cod e = 56088-9) Normal [facility] CenterCB WITH [id number] 14:51:49* Test Item Value Reference Range Interpretation Comme nts WBC (test code = 6690-2) See_Comment [[employer]] The system which generated this result transmitted reference range: 4.20 - 10.70 10*3/?L. The reference range was not used to interpret this result as normal/abnormal. RBC (test code = 789-8) See_Comment [Automated [employer]] The system which generated this result transmitted [...] 34.0 g/dL 31.2-35 RDW-SD (test code = 47480-1) 45.9 fL 38.5-51.6 RDW-CV (test code = 788-0) 13.3 % 12.1-15.4 PLT (test code = 777-3) See_Comment [Automated messa ge] The system which generated this result transmitted reference range: 150 - 328 10*3/?L. The reference range was not used to interpret this result as normal/abnormal. MPV (test code = 21046-0) 8.4 fL 9.8-13 L NRBC/100 WBC (test code = 8478131920) See_Comment [Automated [employer] ssage] The system which generated this result transmitted reference range: 0.0 - 10.0 /100 WBCs. The reference range was not used to interpret this result as normal/abnormal. NRBC x10^3 (test code = 5111353279) See_Comment [Automated messa ge] The system which generated this result transmitted reference range: 10*3/?L. The reference range was not used to interpret this result as normal/abnormal. GRAN MAT (NEUT) % (test code = 770-8) 63.0 % IMM GRAN % (test code = 4423431442) 0.50 % LYMPH % (test code = 736-9) 25.2 % MONO % (test code = 5905-5) 9.8 % EOS % (test code = 713-8) 0.3 % BASO % (test code = 706-2) 1.2 % GRAN MAT x10^3(ANC) (test code = 6454934969) 3.73 10*3/uL 1.99-6.95 IMM GRAN x10^3 (test code = 7749277455) 0.03 10*3/uL 0-0.06 LYMPH x10^3 (test code = 731-0) 1.49 10*3/uL 1.09-3.23 MONO x10^3 (test code = 742-7) 0.58 10*3/uL 0.36-1.02 EOS x10^3 (test code = 711-2) 0.06-0.53 L BASO x10^3 (test code = 704-7) 0.07 10*3/uL 0.01-0.09 Lab Interpretation (test code = 44723-7) Abnormal [facility], Urinalysis Rflx Cult/Bemgt5580-09-05 13:53:00* Test Item Value Reference Range Interpretation Comme nts Color,Urine (test code = UCOL) Yellow Yellow Clarity,Urine (test code = UCLAR) Cloudy Clear A Ph, Urine (test code = UPH) 7.5 5.0-9.0 N Specific [place],Urine (test code = USG) 1.025 1.005-1.030 N [...] = ULEU) Negative mg/dL Negative UF REFLEXDrug Screen,Wkrkz2019-48-05 13:53:00* Test Item Value Reference Range Interpretation [...] UPROP) Negative Negative Complete Blood Count Auto Mcvc6060-43-65 12:58:00* Test Item Value Reference Range Interpretation [...] = NRBCP) 0 % Coronavirus PCR, COVID19 Kmipm6647-93-06 12:58:00* Test Item Value Reference Range Interpretation Comme nts Coronavirus PCR, COVID19 Rapid (test code = SARSCOV2) Coronavirus PCR, COVID19 Rapid (test code = KOOJUST30.1) Reference Range: Negative SARS-CoV-2 PCR Result: (test code = SARS-CoV-2 PCR Result:) Negative by RT-PCR COVID-19 Status: AsymptomaticComprehensive Metabolic Tzkty1823-64-54 12:58:00* Test Item Value Reference Range Interpretation [...] = ALP) 144 U/L 46-116 H Ethanol Owjfg2915-35-21 12:58:00* Test Item Value Reference Range Interpretation Comme nts Ethanol (test code = ETOH) < 3 mg/dL The pharmacologi yudy response to blood alcohol levels mayvary from individual to individual. The fatal concentrationhas been reported to be >400mg/dL. JGLMPKX7512-96-13 01:47:56* Test Item Value Reference Range Interpretation Comme nts [place] (test code = 2148679926) 0.7 mmol/L 0.6-1.2 JUAN ALBERTO (test code = JUAN ALBERTO) Toxic Range: ? Greater than 1.2 mmol/L Lab Interpretation (test code = 75957-4) Normal [facility] CenterTR[facility] [id number] 00:26:53* Test Item Value Reference Range Interpretation Comments TROPONIN I (test code = 6811278256) 0.002 ng/mL See_Comment [Automated message] The system [...] of biotin. Lab Interpretation (test code = 85094-4) Normal [facility] CenterETHANOL2022-08-01 00:18:52 ALCOHOL<10mg/dL01/19/2022 7:18 PM [facility]<10 Lpoqaowj97-208 Toxic>100 Depression of MANAGER GAMES>400 Fatalities ReportedMemorial Hermann Memorial City Medical CenterCOMP. METABOLIC PANEL (98139)2022-01-20 00:16:16* Test Item Value Reference Range Interpretation Comme nts NA (test code = 3142649351) 137 mmol/L 135-145 K (test code = 3509643638) 4.5 mmol/L 3.5-5 CL (test code = 2982755873) 103 mmol/L 98-108 CO2 TOTAL (test code = 6296941880) 26 mmol/L 23-31 AGAP (test code = 0167770726) 2-16 BUN (test code = 9130512318) 10 mg/dL 7-23 GLUCOSE (test code = 0590627999) 121 mg/dL 70-110 H CREATININE (test code = 9272584342) 0.65 mg/dL 0.6-1.25 TOTAL BILI (test code = 6762089638) 0.8 mg/dL 0.1-1.1 CALCIUM (test code = 0618777177) 11.4 mg/dL 8.6-10.6 H T PROTEIN (test code = 2253452435) 7.2 g/dL 6.3-8.2 ALBUMIN (test code = 5802228445) 4.6 g/dL 3.5-5 ALK PHOS (test code = 0040511099) 112 U/L 34-122 ALTv (test code = 1742-6) 19 U/L 5-50 AST(SGOT) (test code = 5003918022) 26 U/L 13-40 eGFR (test code = 2553122566) mL/min/1.73m2 JUAN ALBERTO (test code = JUAN [...] imaging tests). Lab Interpretation (test code = 69229-7) Abnormal [facility] WITH [id number] 23:43:54* Test Item Value Reference Range Interpretation Comme nts WBC (test code = 6690-2) See_Comment [Automated [employer]] The system which generated this result transmitted reference range: 4.20 - 10.70 10*3/?L. The reference range was not used to interpret this result as normal/abnormal. RBC (test code = 789-8) See_Comment [[employer]] The system which generated this result transmitted [...] 34.4 g/dL 31.2-35 RDW-SD (test code = 89260-7) 44.0 fL 38.5-51.6 RDW-CV (test code = 788-0) 12.6 % 12.1-15.4 PLT (test code = 777-3) See_Comment [Automated messa ge] The system which generated this result transmitted reference range: 150 - 328 10*3/?L. The reference range was not used to interpret this result as normal/abnormal. MPV (test code = 98788-9) 9.1 fL 9.8-13 L NRBC/100 WBC (test code = 1167365761) See_Comment [Automated me ssage] The system which generated this result transmitted reference range: 0.0 - 10.0 /100 WBCs. The reference range was not used to interpret this result as normal/abnormal. NRBC x10^3 (test code = 8234630695) See_Comment [Automated messa ge] The system which generated this result transmitted reference range: 10*3/?L. The reference range was not used to interpret this result as normal/abnormal. GRAN MAT (NEUT) % (test code = 770-8) 69.8 % IMM GRAN % (test code = 8317101320) 0.40 % LYMPH % (test code = 736-9) 18.0 % MONO % (test code = 5905-5) 10.9 % EOS % (test code = 713-8) 0.1 % BASO % (test code = 706-2) 0.8 % GRAN MAT x10^3(ANC) (test code = 5411974971) 5.58 10*3/uL 1.99-6.95 IMM GRAN x10^3 (test code = 7318763693) 0.03 10*3/uL 0-0.06 LYMPH x10^3 (test code = 731-0) 1.44 10*3/uL 1.09-3.23 MONO x10^3 (test code = 742-7) 0.87 10*3/uL 0.36-1.02 EOS x10^3 (test code = 711-2) 0.06-0.53 L BASO x10^3 (test code = 704-7) 0.06 10*3/uL 0.01-0.09 Lab Interpretation (test code = 40720-0) Abnormal [facility] GLUCOSE (AUTOMATED)2022-01-19 22:27:41* Test Item Value Reference Range Interpretation Comme nts POCT GLU (test code = 1685497952) 123 mg/dL 70-110 H Lab Interpretation (test cod e = 56097-7) Abnormal [facility] GLUCOSE (AUTOMATED)2021-12-30 22:08:16* Test Item Value Reference Range Interpretation Comme nts POCT GLU (test code = 8882513434) 167 mg/dL 70-110 H Lab Interpretation (test cod e = 58162-7) Abnormal [facility] GLUCOSE (AUTOMATED)2021-12-30 16:50:40* Test Item Value Reference Range Interpretation Comme nts POCT GLU (test code = 7685432690) 154 mg/dL 70-110 H Lab Interpretation (test cod e = 64823-5) Abnormal [facility] GLUCOSE (AUTOMATED)2021-12-30 12:38:43* Test Item Value Reference Range Interpretation Comme nts POCT GLU (test code = 6931177519) 164 mg/dL 70-110 H Lab Interpretation (test cod e = 34328-6) Abnormal [facility] GLUCOSE (AUTOMATED)2021-12-30 02:14:58* Test Item Value Reference Range Interpretation Comme nts POCT GLU (test code = 8960344654) 220 mg/dL 70-110 H Lab Interpretation (test cod e = 24622-1) Abnormal [facility] GLUCOSE (AUTOMATED)2021-12-29 21:50:02* Test Item Value Reference Range Interpretation Comme nts POCT GLU (test code = 4481855509) 191 mg/dL 70-110 H Lab Interpretation (test cod e = 07967-3) Abnormal [facility] GLUCOSE (AUTOMATED)2021-12-29 20:15:01* Test Item Value Reference Range Interpretation Comme nts POCT GLU (test code = 7186926691) 163 mg/dL 70-110 H Lab Interpretation (test cod e = 74738-9) [facility]normal [facility]2021-12-29 19:12:22* Test Item Value Reference Range Interpretation Comme nts Height (test code = 0548648550) in Weight (test code = 3678144337) lbs Systolic BP (test code = 0264495710) mmHg Diastolic BP (test code = 2549156131) mmHg Heart Rate (test code = 2438106656) bpm BSA (test code = 1483730463) 1.62 m2 Ao root annulus (test code = 0459852833) 2.45 cm Ao root diam (test code = 1642045719) 2.45 cm Aortic root (test code = 1986239519) 2.45 cm ACS (test code = 1113791691) 1.66 cm LA size (test code = 2437002243) 3.2 cm LVOT diameter (test code = 6568820295) 1.95 cm LVIDD (test code = 4086280514) 3.60 cm IVS (test code = 4932606295) 0.94 cm Interventricular Septum Diastolic Thickness by 2D (test code = 5180814) 0.94 cm LVPWD (test code = 9423558351) 0.80 cm PW (test code = 6839882887) 0.80 cm 0.6-1.1 EF(Teich) (test code = 6714543249) 52.80 % LVIDS (test code = 9711819296) 2.60 cm FS (test code = 2866050471) 27 % EF - 2D (test code = 73753623) 52.80 % LAV(MOD-sp4) (test code = 4371003610) 16.80 mL MV Peak E Jovany (test code = 2501198580) 46.1 cm/s E wave decelartion time (test code = 1902312027) 0.31 s MV Peak A Jovany (test code = 8724730680) 58.1 cm/s E/A ratio (test code = 3551323405) ratio MV E/e' septal (test code = 1247977621) 5.7 cm/s Tapse (test code = 1990070352) 1.60 cm LVOT stroke volume (test code = 1280072719) 52.10 cm3 LVOT peak jovany (test code = 7101194623) 110.6 cm/s LVOT mn grad (test code = 4138607709) mmHg AV LVOT peak gradient (test code = 0895888861) mmHg LVOT peak VTI (test code = 2992596543) 17.4 cm LV V1 mean (test code = 3422453119) 66.10 cm/s Aortic valve mean velocity (test code = 7419991314) 73.0 cm/s Ao peak jovany (test code = 1693245951) 124.6 cm/s Ao VTI (test code = 9231623485) 18.6 cm AV area by cont VTI (test code = 9526308092) 2.8 cm2 AV area peak jovany (test code = 2715217682) 2.7 cm2 Ao max PG (test code = 0688370246) 6.20 mm[Hg] AV peak gradient (test code = 1495508905) mmHg AV valve area (test code = 2637412097) 2.80 cm2 AV mean gradient (test code = 2802089987) mmHg Radiology Study observation (narrative) (test code = 44017-8) JUAN ALBERTO (test code = JUAN ALBERTO) [...] mL of Lumason [facility]21-12-29 12:50:31* Test Item Value Reference Range Interpretation Comme nts POCT GLU (test code = 2904411328) 141 mg/dL 70-110 H Lab Interpretation (test cod e = 76079-2) Abnormal [facility] CenterTroponin [id number] 10:38:31* Test Item Value Reference Range Interpretation Comments TROPONIN I (test code = 8731387434) 0.003 ng/mL See_Comment [Automated message] The system [...] of biotin. Lab Interpretation (test code = 66887-2) Normal [facility] CenterLIPID PANEL (29488)(TOTAL CHOLESTEROL, TRIGLYCERIDES, HDL)2021-12-29 05:56:47* Test Item Value Reference Range Interpretation Comme nts CHOL (test code = 0826098542) 168 mg/dL 120-200 HDL (test code = 2085845481) 102 mg/dL See_Comment [Automated [employer]] The system which generated this result transmitted reference range: >=40. The reference range was not used to interpret this result as normal/abnormal. HDLC RATIO (test code = 5994000729) See_Comment [Automated [employer]] The system which generated this result transmitted reference range: <=5.0. The reference range was not used to interpret this result as normal/abnormal. TRIG (test code = 0124002980) 55 mg/dL 30-170 LDL CHOL (test code = 34731-7) 55 mg/dL See_Comment [Automated [employer]] The system which generated this result transmitted reference range: <=160. The reference range was not used to interpret this result as normal/abnormal. VLDL (test code = 9429710133) 11 mg/dL 5-60 Lab Interpretation (test code = 11569-9) Normal [facility] CenterThyroid Stimulating Hormone (TSH)2021-12-29 05:40:29* Test Item Value Reference Range Interpretation Comme nts TSH (test code = 4213221812) See_Comment Biotin has been reported to cause a negative bias, interpret results relative to patient's use of biotin. [Automated message] The system which generated this result transmitted reference range: 0.45 - 4.70 mIU/L. The reference range was not used to interpret this result as normal/abnormal. Lab Interpretation (test code = 06992-0) Normal [facility] CenterTroponin [id number] 05:34:29* Test Item Value Reference Range Interpretation Comments TROPONIN I (test code = 0343049723) 0.006 ng/mL See_Comment [Automated message] The system [...] of biotin. Lab Interpretation (test code = 29204-8) Normal [facility] CenterETHANOL2022-07-10 04:43:01 ALCOHOL<10mg/dL12/28/2021 11:43 PM [facility] LABORATORYToxic Greater than or equal to 80 mg/dL. NOTE: Whole blood values are approximately 10% to 15% lower than serum and plasma.[facility] Glycosylated Hemoglobin (A1C)2021-12-29 01:51:44* Test Item Value Reference Range Interpretation Comme nts HGB A1C (test code = 4548-4) 6.5 % 4-5.7 H JUAN ALBERTO (test code = JUAN ALBERTO) Reference RangesNormal: <5.7%Prediabetes: 5.7 - 6.4%Diabetes: > 6.5% Lab Interpretation (test code = 14347-8) Abnormal [facility] CenterTROPONIN [id number] 21:26:50* Test Item Value Reference Range Interpretation Comments TROPONIN I (test code = 1667953766) 0.002 ng/mL See_Comment [Automated message] The system [...] of biotin. Lab Interpretation (test code = 27382-4) Normal [facility] CenterN-TERMINAL ETA-GKZ8827-14-09 21:23:29* Test Item Value Reference Range Interpretation Comme nts NT-proBNP (test code = 6087371523) 41 pg/mL See_Comment [Automated message] The system which generated this result transmitted reference range: <=125. The reference range was not used to interpret this result as normal/abnormal. JUAN ALBERTO (test code = JUAN ALBERTO) Biotin has been reported to cause a negative bias, interpret results relative to patient's use of biotin. Lab Interpretation (test code = 25677-1) Normal [facility] CenterAMMONIA, [id number] 21:20:38* Test Item Value Reference Range Interpretation Comme nts AMMONIA (test code = 3266377879) 9-33 L Slight hemolysis Lab Interpretation (test code = 07908-8) Abnormal [facility] CenterCOMP. METABOLIC PANEL (39986)2021-12-28 21:08:48* Test Item Value Reference Range Interpretation Comme nts NA (test code = 9195886585) 137 mmol/L 135-145 K (test code = 2601787604) 4.5 mmol/L 3.5-5 CL (test code = 3442798362) 97 mmol/L 98-108 L CO2 TOTAL (test code = 4594922233) 29 mmol/L 23-31 AGAP (test code = 4383414616) 2-16 BUN (test code = 5151346349) 10 mg/dL 7-23 GLUCOSE (test code = 2708301416) 188 mg/dL 70-110 H CREATININE (test code = 6733879441) 0.58 mg/dL 0.6-1.25 L TOTAL BILI (test code = 1646702176) 0.8 mg/dL 0.1-1.1 CALCIUM (test code = 4701815894) 10.5 mg/dL 8.6-10.6 T PROTEIN (test code = 7354519447) 7.6 g/dL 6.3-8.2 ALBUMIN (test code = 2507284197) 4.5 g/dL 3.5-5 ALK PHOS (test code = 4398085148) 107 U/L 34-122 ALTv (test code = 1742-6) 66 U/L 5-50 H AST(SGOT) (test code = 7231571610) 96 U/L 13-40 H eGFR (test code = 7617425176) mL/min/1.73m2 JUAN ALBERTO (test code = JUAN [...] imaging tests). Lab Interpretation (test code = 06314-6) Abnormal [facility] CenterPROTHROMBIN TIME / [id number] 21:01:25* Test Item Value Reference Range Interpretation Comme nts PROTIME PATIENT (test code = 5964-2) See_Comment [Automated [employer]] The system which generated this result transmitted reference range: 12.0 - 14.7 Seconds. The reference range was not used to interpret this result as normal/abnormal. INR (test code = 6301-6) Normal INR <1.1; Warfarin Therapeutic range 2.0 to 3.0 or 2.5 to 3.5, depending upon the indications. Lab Interpretation (test code = 63528-3) Normal [facility] CenterCBC WITH [id number] 20:54:03* Test Item Value Reference Range Interpretation Comme nts WBC (test code = 6690-2) See_Comment [Automated [employer]] The system which generated this result transmitted reference range: 4.20 - 10.70 10*3/?L. The reference range was not used to interpret this result as normal/abnormal. RBC (test code = 789-8) See_Comment [Automated [employer]] The system which generated this result transmitted [...] 34.2 g/dL 31.2-35 RDW-SD (test code = 58113-3) 47.8 fL 38.5-51.6 RDW-CV (test code = 788-0) 13.3 % 12.1-15.4 PLT (test code = 777-3) See_Comment [Automated [employer]] The system which generated this result transmitted reference range: 150 - 328 10*3/?L. The reference range was not used to interpret this result as normal/abnormal. MPV (test code = 47565-9) 8.6 fL 9.8-13 L NRBC/100 WBC (test code = 6316244832) See_Comment [Automated [employer] ssage] The system which generated this result transmitted reference range: 0.0 - 10.0 /100 WBCs. The reference range was not used to interpret this result as normal/abnormal. NRBC x10^3 (test code = 0754096721) See_Comment [Automated [employer]] The system which generated this result transmitted reference range: 10*3/?L. The reference range was not used to interpret this result as normal/abnormal. GRAN MAT (NEUT) % (test code = 770-8) 64.1 % IMM GRAN % (test code = 4037023559) 0.40 % LYMPH % (test code = 736-9) 16.6 % MONO % (test code = 5905-5) 17.2 % EOS % (test code = 713-8) 0.2 % BASO % (test code = 706-2) 1.5 % GRAN MAT x10^3(ANC) (test code = 1570760358) 3.47 10*3/uL 1.99-6.95 IMM GRAN x10^3 (test code = 8658948590) 0-0.06 LYMPH x10^3 (test code = 731-0) 0.90 10*3/uL 1.09-3.23 L MONO x10^3 (test code = 742-7) 0.93 10*3/uL 0.36-1.02 EOS x10^3 (test code = 711-2) 0.06-0.53 L BASO x10^3 (test code = 704-7) 0.08 10*3/uL 0.01-0.09 Lab Interpretation (test code = 92536-6) Abnormal [facility] CenterEthanol Vcftj7548-64-15 21:08:00* Test Item Value Reference Range Interpretation Comme nts Ethanol (test code = ETOH) < 3 mg/dL The pharmacologi yudy response to blood alcohol levels mayvary from individual to individual. The fatal concentrationhas been reported to be >400mg/dL. Complete Blood Count Auto Gzlh7225-08-75 17:33:00* Test Item Value Reference Range Interpretation [...] = NRBCP) 0 % UA, Urinalysis Rflx Cult/Jzwmk8561-52-36 17:33:00* Test Item Value Reference Range Interpretation Comme nts Color,Urine (test code = UCOL) Dark Yellow Yellow A Clarity,Urine (test code = UCLAR) Clear Clear Ph, Urine (test code = UPH) 6.5 5.0-9.0 N Specific [place],Urine (test code = USG) 1.015 1.005-1.030 N [...] = ULEU) Trace mg/dL Negative A Urine Hglaszfpjlw5027-85-79 17:33:00* Test Item Value Reference Range Interpretation Comme nts RBC,Urine (test code = URBCUF) None Seen /HPF 0-2 WBC,Urine (test code = UWBCUF) 0-5 /HPF 0-5 Epithelial Cell,Urine (test code = UECUF) 0-5 /HPF 0-5 Casts,Urine (test code = UCASTUF) None Seen /LPF None Seen Bacteria,Urine (test code = UBACTUF) None Seen /hpf None Seen Drug Screen,Wwtcj5311-37-92 17:33:00* Test Item Value Reference Range Interpretation [...] code = UPROP) Negative Negative Comprehensive Metabolic Zvpmy5505-62-12 17:33:00* Test Item Value Reference Range Interpretation [...] 101 U/L 46-116 N Sars-CoV-2/FLU A/B RSV [id number] 17:31:00* Test Item Value Reference Range Interpretation [...] SARS-CoV-2 PCR Result:) Negative by RT-PCR Drug Screen,Eamoc4542-77-97 17:20:00* Test Item Value Reference Range Interpretation [...] UPROP) Negative Negative Complete Blood Count Auto Ogxw8987-26-64 17:14:00* Test Item Value Reference Range Interpretation [...] code = NRBCP) 0 % Comprehensive Metabolic Prvan4056-88-54 17:14:00* Test Item Value Reference Range Interpretation [...] = ALP) 207 U/L 46-116 H Ethanol Icjtq9619-71-55 17:14:00* Test Item Value Reference Range Interpretation Comme nts Ethanol (test code = ETOH) 192 mg/dL Complete Blood Count Auto Ucfz9231-52-74 20:20:00* Test Item Value Reference Range Interpretation [...] code = NRBCP) 0 % Comprehensive Metabolic Mjvib6278-70-31 20:20:00* Test Item Value Reference Range Interpretation [...] = ALP) 189 U/L 46-116 H Ethanol Xxhhh7980-16-33 20:20:00* Test Item Value Reference Range Interpretation Comme nts Ethanol (test code = ETOH) 10 mg/dL Sars-CoV-2/FLU A/B RSV [id number] 20:20:00* Test Item Value Reference Range Interpretation [...] Negative by Nucleic Acid Amplification UA, Urinalysis Lsbrbzjpvem7895-89-99 20:20:00* Test Item Value Reference Range Interpretation Comme nts Color,Urine (test code = UCOL) Yellow Y Clarity,Urine (test code = UCLAR) Clear Clear PH,Urine (test code = UPH.XX) 7.0 5.5-8.5 Specific [place],Urine (test code = USG) 1.020 1.005-1.030 N [...] code = ULEU) Negative cells/uL Negative Drug Screen,Ybswt4315-83-22 20:20:00* Test Item Value Reference Range Interpretation [...] RESULT TO MICHAELA TRACY CT head/brain wo [facility] [address] [place] [address] Patient Name: Walt Velazquez Medical Record#: [id number] Address: Homeless City/State/Zip: [place] [address]: Vinnie Navarro MD Phone: Insurance: Self Pay /Age/Sex: 1970/50/M Admit/Reg Date: 09/17/[address]: Vinnie Navarro MD Location: [facility]/ PCP: Md KERWIN Flores Date of Service: 09/17/21 Order (s): CT head/brain wo con CPT Code: 80675 Report Number: [id number] Reason for Exam: Altered mental status Location [...] Karen Jay MD 09/17/2021 6:42 PM CDTWorkstation: [id number] Dictated By: Karen Sanders MD 09/17/211824 Signed By: Karen Sanders MD 09/17/211824 TD/TT: 09/17/211824 Tech: [id number] cc: JOSEE; GENESIS* Vinnie Navarro MD; Pcp-Md KERWIN Stiles"
--- NOTE | 2023-07-29 13:26 | EDPHYS ---
Physician Documentation [facility] Name: Walt Velazquez Age: 52 yrs Sex: Male : 1970 Arrival Date: 07/29/2023 Time: 12:54 Bed 18 Private MD: ED Physician Deandre Mckeon HPI: 07/29 13:19 This 52 yrs old Male presents to ER via EMS with complaints of laying on the [facility] floor, shaking. 13:19 hx of etoh. Severity of symptoms: At their worst the symptoms were mild in the [facility] emergency department the symptoms are unchanged. The patient has experienced similar episodes in the past, multiple times. Historical: - Allergies: 13:11 Trazodone; db - PMHx: 13:11 Alcoholism; Bipolar II; Parkinsons; Hypertensive disorder; Seizure; db - Immunization history:: Adult Immunizations unknown. - Social history:: Smoking status: Patient reports the use of cigarette tobacco products, smokes one pack cigarettes per day. - Family history:: not pertinent. ROS: 13:19 Constitutional: Negative for fever, chills, and weight loss, Eyes: Negative for injury, bridgette pain, redness, and discharge, ENT: Negative for injury, pain, and discharge, Neck: Negative for injury, pain, and swelling, Cardiovascular: Negative for chest pain, palpitations, and edema, Respiratory: Negative for shortness of breath, cough, wheezing, and pleuritic chest pain, Abdomen/GI: Negative for abdominal pain, nausea, vomiting, diarrhea, and constipation, Back: Negative for injury and pain, : Negative for injury, bleeding, discharge, and swelling, MS/Extremity: Negative for injury and deformity, Skin: Negative for injury, rash, and discoloration, Psych: Negative for depression, anxiety, suicide ideation, homicidal ideation, and hallucinations, Allergy/Immunology: Negative for hives, rash, and allergies, Endocrine: Negative for neck swelling, polydipsia, polyuria, polyphagia, and marked weight changes, Hematologic/Lymphatic: Negative for swollen nodes, abnormal bleeding, and unusual bruising, 13:19 Neuro: Positive for shaking, Exam: 13:19 Constitutional: This is a well developed, well nourished patient who is awake, alert, bridgette and in no acute distress. Head/Face: Normocephalic, atraumatic. Eyes: Pupils equal round and reactive to light, extra-ocular motions intact. Lids and lashes normal. Conjunctiva and sclera are non-icteric and not injected. Cornea within normal limits. Periorbital areas with no swelling, redness, or edema. ENT: Nares patent. No nasal discharge, no septal abnormalities noted. Tympanic membranes are normal and external auditory canals are clear. Oropharynx with no redness, swelling, or masses, exudates, or evidence of obstruction, uvula midline. Mucous membranes moist. Neck: Trachea midline, no thyromegaly or masses palpated, and no cervical lymphadenopathy. Supple, full range of motion without nuchal rigidity, or vertebral point tenderness. No Meningismus. Chest/axilla: Normal chest wall appearance and motion. Nontender with no deformity. No lesions are appreciated. Cardiovascular: Regular rate and rhythm with a normal S1 and S2. No gallops, murmurs, or rubs. Normal PMI, no JVD. No pulse deficits. Respiratory: Lungs have equal breath sounds bilaterally, clear to auscultation and percussion. No rales, rhonchi or wheezes noted. No increased work of breathing, no retractions or nasal flaring. Abdomen/GI: Soft, non-tender, with normal bowel sounds. No distension or tympany. No guarding or rebound. No evidence of tenderness throughout. Back: No spinal tenderness. No costovertebral tenderness. Full range of motion. Male : Normal genitalia with no discharge or lesions. Skin: Warm, dry with normal turgor. Normal color with no rashes, no lesions, and no evidence of cellulitis. Neuro: Awake and alert, GCS 15, oriented to person, place, time, and situation. Cranial nerves II-XII grossly intact. Motor strength 5/5 in all extremities. Sensory grossly intact. Cerebellar exam normal. Normal gait. Psych: Awake, alert, with orientation to person, place and time. Behavior, mood, and affect are within normal limits. 13:19 Musculoskeletal/extremity: ROM: full active range of motion, full passive range of motion, Circulation is intact in all extremities. Sensation intact. Compartment Syndrome exam of affected extremity: is normal. Weight bearing: able to fully bear weight, without difficulty, DVT Exam: No signs of deep vein thrombosis. no pain, no swelling, no tenderness, negative Homans' sign noted on exam, no appreciated bluish discoloration, no erythema, no increased warmth, Vital Signs: 12:58 BP 118 / 67; Pulse 89; Resp 18; Temp 98.3; Pulse Ox 97% ; Weight 58.97 kg; Height 5 ft. db 3 in. ; 12:58 Body Mass Index 23.03 (58.97 kg, 160.02 cm) db MDM: 13:06 Patient medically screened. [facility] 13:21 Differential Diagnosis altered mental status, sepsis, flu. Data reviewed: vital signs, bridgette nurses notes. Consideration of Admission/Observation Escalation of care including admission/observation considered. I considered the following discharge prescriptions or medication management in the emergency department Medications were administered in the Emergency Department. See MAR. Test considered but Not performed: Other Details pt refuses any test. Care significantly affected by the following chronic conditions: Hypertension, etoh abuse, parkinson dis, seizure, . Counseling: I had a detailed discussion with the patient and/or guardian regarding the historical points, exam findings, and any diagnostic results supporting the discharge/admit diagnosis, the need for outpatient follow up, for definitive care, a family practitioner, a neurologist. 07/29 13:07 Order name: Cardiac monitoring; Complete Time: 13:26 [facility] 07/29 13:07 Order name: EKG - Nurse/Tech; Complete Time: : [facility] 07/29 13:07 Order name: IV Saline Lock; Complete Time: :26 [facility] 07/29 13:07 Order name: Labs collected and sent; Complete Time: 13:26 [facility] 07/29 13:07 Order name: O2 Per Protocol; Complete Time: :26 [facility] 07/29 13:07 Order name: O2 Sat Monitoring; Complete Time: : [facility] Administered Medications: No medications were administered Disposition Summary: 07/29/23 13:25 Discharge Ordered Notes: Location: Home [facility] Problem: chronic bridgette Symptoms: are unchanged bridgette Condition: Undetermined bridgette Diagnosis - Alcohol dependence bridgette - Parkinson's disease bridgette - Weakness bridgette Followup: bridgette - With: Private Physician - When: 1 - 2 days - Reason: Recheck today's complaints, Continuance of care, Re-evaluation by your physician Discharge Instructions: - Discharge Summary Sheet bridgette - Alcohol Use Disorder bridgette - Parkinson's Disease bridgette - Weakness bridgette - Alcohol Abuse and Nutrition bridgette - Weakness, [id number]-[id number] bridgette - Parkinson's Disease, Spym-[id number]-[id number] bridgette - Alcohol Abuse and Dependence Information, Adult [facility] Forms: - Medication Reconciliation Form bridgette - Thank You Letter bridgette - Antibiotic Education bridgette - Prescription Opioid Use bridgette - Patient Portal Instructions bridgette - Leadership Thank You Letter bridgette Signatures: Dispatcher [employer] Deandre Gonzales MD MD cha Benton, Danielle RN RN db Corrections: (The following items were deleted from the chart) 13:31 13:07 Chest Single View+RAD.[email or web address].[email or web address] ordered. EDVA YULIYA
--- NOTE | 2023-07-29 13:26 | ER ---
Nurse's Notes [facility] Name: Walt Velazquez Age: 52 yrs Sex: Male : 1970 Arrival Date: 07/29/2023 Time: 12:54 Bed 18 Private MD: Diagnosis: Alcohol dependence;Parkinson's disease;Weakness Presentation: 07/29 12:58 Chief complaint: EMS states: PATIENT FOUND LYING ON THE GROUND OUTSIDE. STATES HE WAS db WALKING AROUND AND DOESN'T KNOW HOW HE GOT THERE. Coronavirus screen: Client denies travel out of the [place] in the last 14 days. At this time, the client does not indicate any symptoms associated with coronavirus-19. Ebola Screen: Patient negative for fever greater than or equal to 101.5 degrees Fahrenheit, and additional compatible Ebola Virus Disease symptoms Patient denies exposure to infectious person. Patient denies travel to an Ebola-affected area in the 21 days before illness onset. No symptoms or risks identified at this time. Initial Sepsis Screen: Does the patient meet any 2 criteria? No. Patient's initial sepsis screen is negative. Does the patient have a suspected source of infection? No. Patient's initial sepsis screen is negative. Risk Assessment: Do you want to hurt yourself or someone else? Patient reports no desire to harm self or others. Onset of symptoms was July 29, 2023. 12:58 Method Of Arrival: EMS: [facility] db 12:58 Acuity: LATASHA 2 db Triage Assessment: 13:11 General: Appears in no apparent distress. comfortable, Behavior is calm, cooperative. db Pain: Denies pain. Neuro: Level of Consciousness is awake, alert, obeys commands, Oriented to person, place, time, situation. Respiratory: Airway is patent Respiratory effort is even, unlabored, Respiratory pattern is regular, symmetrical. Historical: - Allergies: 13:11 Trazodone; db - PMHx: 13:11 Alcoholism; Bipolar II; Parkinsons; Hypertensive disorder; Seizure; db - Immunization history:: Adult Immunizations unknown. - Social history:: Smoking status: Patient reports the use of cigarette tobacco products, smokes one pack cigarettes per day. - Family history:: not pertinent. Screenin:08 [facility] ED Fall Risk Assessment (Adult) History of falling in the last 3 months, bp including since admission No falls in past 3 months (0 pts). Abuse screen: Denies threats or abuse. Denies injuries from another. Nutritional screening: No deficits noted. Tuberculosis screening: No symptoms or risk factors identified. Assessment: 13:04 Reassessment: No changes from previously documented assessment. discharged by Dr. ernesto Mckeon after leaving. Gait steady. 13:07 Reassessment: PT REFUSING HEALTHCARE ACTIVITIES, STATING HE WISHES TO LEAVE. ADVISED TO bp REMAIN BY MD AND STAFF BUT REFUSED. AO4, AMBULATORY WITH STEADY GAIT. Vital Signs: 12:58 BP 118 / 67; Pulse 89; Resp 18; Temp 98.3; Pulse Ox 97% ; Weight 58.97 kg; Height 5 ft. db 3 in. ; 12:58 Body Mass Index 23.03 (58.97 kg, 160.02 cm) db ED Course: 13:06 Patient arrived in ED. bridgette 13:06 Deandre Mckeon MD is Attending Physician. [facility] 13:08 Shannon Iqbal, RN is Primary Nurse. db 13:08 No provider procedures requiring assistance completed. Patient did not have IV access bp during this emergency room visit. 13:08 Patient has correct armband on for positive identification. bp 13:11 Triage completed. db 13:11 Arm band placed on. db 14:01 Provided Education on: n/a. ll1 Administered Medications: No medications were administered Medication: 14:01 VIS not applicable for this client. ll1 Outcome: 13:15 Condition: stable db 13:25 Discharge ordered by . bridgette 13:25 Patient left the ED. ll1 13:25 Discharged to home ambulatory, 1 13:25 Discharge instructions given to patient, Instructed on discharge instructions, follow up and referral plans. Demonstrated understanding of instructions, follow-up care, left without written discharge instructions Signatures: Deandre Mckeon MD MD cha Peltier, Brian, RN RN Monet Melo RN RN ll1 Shannon Iqbal, ROBERTO RN db Corrections: (The following items were deleted from the chart) 13:59 13:15 AMA Left before signing form, db ll1 14:00 13:35 Patient left the ED. ll1 ll1
[2023-07-30 23:24] VITALS: BP 118/67; TEMP 98.3; O2SAT 97
== END ==
LOC: ER 12:54
DX: F10.20 Alcohol dependence, uncomplicated (principal); R53.1 Weakness; G20.A1 Parkinson's disease without dyskinesia, without mention of fluctuations; F17.210 Nicotine dependence, cigarettes, uncomplicated; Z88.5 Allergy status to narcotic agent

== ENCOUNTER → 2023-08-05 | Emergency (ER) | payer SELFPAY ==
--- OUTSIDE RECORDS SUMMARY | 2023-08-05 09:10 | XMS REPORT | Continuity of Care Document ---
Author Name Unknown Address [address] [facility] [place] [address] [facility] Address [address] 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 Name Role Phone Pcp-None Primary Care Physician Unavailab HEMANT Adame Attending Clinician Unavailable Hemant Klein MD Attending Clinician [phone] Pan Pinto Attending Clinician Unavailab JESSICA Gallardo Attending Clinician Unavailable Rayray Driscoll MD Attending Clinician [phone] Jessica Prado MD Attending Clinician [phone] Oswald Murphy MD Attending Clinician [phone] DIYA CHOWDHURY Attending Clinician Unavailab Diya Mackey DO Attending Clinician [phone] Fidel Cuellar Attending Clinician Unavailable DIRK YARBROUGH Attending Clinician Unavailable Leticia Rowland Attending Clinician [phone] Dirk Yarbrough MD Attending Clinician [phone] Faye Portillo LVN Attending Clinician [phone] Pia Reddy Attending Clinician [phone] Vinnie Navarro Attending Clinician Unavailable OSWALD MURPHY Admitting Clinician Unavailable Oswald Murphy MD Admitting Clinician [phone] DIYA CHOWDHURY Admitting Clinician UnavailLeticia Gaytan Admitting Clinician Unavailable JESSICA PRADO Admitting Clinician Unavailable Jessica Prado MD Admitting Clinician [phone] Payers Payer Name Policy Type Policy Number Effective Date Expirati on Date Source [facility] [id number] 2022-08-09 00:00:00 Problems Condition Name Condition Details Condition Category Status Onset Date Resolution Date Last Treatment Date Treating Clinician Comments Source Alcohol withdrawal syndrome with complicati on Alcohol withdrawal syndrome with complicati on Disease Active 08-10 00:00: 00 [facility] Type 2 diabetes mellitus with other specified complicati on Type 2 diabetes mellitus with other specified complicati on Disease Active 12-29 00:00: 00 [facility] Dyslipidem ia Dyslipidem ia Disease Active 12-29 00:00: 00 [facility] Chest pain, unspecifie d type Chest pain, unspecifie d type Disease Active 12-28 00:00: 00 [facility] Priapism Priapism Disease Active 2013-06 1-06 00:00: 00 [facility] Allergies, Adverse Reactions, Alerts Allergy Name Allergy Type Status Severity Reaction(s) Onset Date Inactive Date Treating Clinician Comments Source No Known Drug Allergie s DA Active U 4-25 00:00: 00 [facility] No Known Drug Allergie s DA Active U 0 9-16 00:00: 00 [facility] No Known Drug Allergie s DA Active U 0 3-29 00:00: 00 [facility] No Known Drug Allergie s DA Active U 2019-06 2-16 00:00: 00 [facility] No Known Drug Allergie s DA Active U 2019-06 2-15 00:00: 00 [facility] No Known Drug Allergie s DA Active U 2019-06 2-02 00:00: 00 [facility] Trazodon e Propensi ty to adverse reaction s Active Other - See comments 10-06 00:00: 00 [facility] TRAZODON E DRUG INGREDI Active Other-Cmnt 10-06 00:00: 00 [facility] Social History Social Habit Start Date Stop Date Quantity Comments Source History of tobacco use Cigarette Smoker [facility] Exposure to SARS-CoV-2 (event) 2022-11-01 00:00:00 2022-11-11 13:57:00 Not sure [facility] Tobacco use and exposure 2022-08-10 00:00:00 2022-08-10 00:00:00 User of smokeless tobacco [facility] Alcohol intake 2022-08-10 00:00:00 2022-08-10 00:00:00 Current drinker of alcohol (finding) [facility] Tobacco Comment 2022-08-10 00:00:00 2022-08-10 00:00:00 1/2 a pack a day [facility] Sex Assigned At 1970 00:00:00 1970 00:00:00 [facility] Smoking Status Start Date Stop Date Source Smokes tobacco daily 2022-08-10 00:00:00 [facility] Medications Ordered Medication Name Filled Medication Name Start Date Stop Date Current Medication? Ordering Clinician Indication Dosage Frequency Signature (SIG) Comments Components Source NaCl 0.9% (NS) bolus infusion 1,000 mL 11-11 19:45: 00 11-11 20:23 :00 No 1000mL at 999 mL/hr, 1,000 mL, IV Piggyback, ONCE, 1 dose, On Thu11/11/22 at 1445, STAT [facility] multivitami n tablet 1 tablet 08-12 15:00: 00 Yes 1{tbl} 1 tablet, Oral, DAILY, First dose on Thu08/12/22 at 0900, Until Discontinu ed, Routine [facility] acute hospital foLIC acid (FOLATE) tablet 1 mg 08-12 15:00: 00 Yes 1mg 1 mg, Oral, DAILY, First dose on Thu08/12/22 at 0900, Until Discontinu ed, Routine [facility] acute hospital foLIC acid 1 mg tablet 08-12 00:00: 00 09-12 04:59 :00 No [id number] 1mg Take 1 tablet by mouth in the morning for 30 days. [facility] acute hospital oxazepam (SERAX) capsule 15 mg 08-11 20:00: [...] Thu08/13/22 at 0600, Routine [Order 2 End] [facility] hospital thiamine (VITAMIN B1) tablet 100 mg 08-11 16:15: 00 Yes 100mg 100 mg, Oral, DAILY, First dose on Thu08/11/22 at 1015, Until Discontinu ed, Routine [facility] enoxaparin (LOVENOX) injection 40 mg 08-10 23:00: 00 Yes 40mg 40 mg, Subcutaneo us, DAILY, First dose on Thu08/10/22 at 1700, Until Discontinu ed, Routine [facility] NaCl 0.9% (NS) IV infusion 1,000 mL 08-10 15:00: 00 Yes 1000mL at 125 mL/hr, IV Infusion, CONTINUOUS , Starting on Thu08/10/22 at 0900, Until Discontinu ed, Routine [facility] foLIC acid (FOLATE) 5 mg in NaCl 0.9% (NS) piggyback 08-10 15:00: 00 08-11 16:14 :47 No 5mg IV Piggyback, DAILY, First dose on Thu08/10/22 at 0900, Until Discontinu ed, 50 mL [facility] thiamine (VITAMIN B1) 100 mg in NaCl 0.9% (NS) piggyback 08-10 15:00: 00 08-10 16:08 :00 No 100mg IV Piggyback, DAILY, 1 dose, First dose on Thu08/10/22 at 0900, 50 mL [facility] LORazepam (ATIVAN) injection 2 mg 08-10 14:52: 57 Yes 2mg 2 mg, Slow IV Push, Q4HPRN, Starting on 08/10/22 at 0852, Until Discontinu ed, Routine, Seizures, Agitation, Anxiety [facility] acute hospital Sliding Scale Insulin-Reg ular + Fsbg Testing 08-10 13:30: 00 Yes Subcutaneo us, AC+HS, First dose on Thu08/10/22 at 0730, Until Discontinu ed, Routine [facility] acute hospital oxazepam (SERAX) capsule 15 mg 08-10 12:08: 05 Yes 15mg 15 mg, Oral, Q4HPRN, Starting on 08/10/22 at 0608, Until Discontinu ed, Routine, Only while awake for DBP equal to or greater than 100, HR equal to or greater than 100. [facility] acute hospital dextrose 10% (D10W) bolus infusion 250 mL [...] unable to swallow or has mental changes. [facility] acute hospital ondansetron (ZOFRAN (PF)) injection 4 mg 08-10 12:02: 53 Yes 4mg 4 mg, Slow IV Push, Q6HPRN, Starting on Thu08/10/22 at 0602, Until Discontinu ed, Routine, Nausea and Vomiting (N/V) [facility] hospital ibuprofen (MOTRIN IB) tablet 200 mg 08-10 12:02: 45 Yes 200mg 200 mg, Oral, Q6HPRN, Starting on Thu08/10/22 at 0602, Until Discontinu ed, Routine, Pain (scale 1-3) [facility] hospital NaCl 0.9% (NS) bolus infusion 1,000 mL 08-10 10:15: 00 08-10 13:00 :00 No 1000mL at 999 mL/hr, 1,000 mL, IV Infusion, ONCE, 1 dose, On Thu08/10/22 at 0415, STAT [facility] acute hospital LORazepam (ATIVAN) injection 0.5 mg 08-10 09:15: 00 08-10 09:19 :00 No .5mg 0.5 mg, Slow IV Push, ONCE, 1 dose, On Thu08/10/22 at 0315, STAT [facility] hospital LORazepam (ATIVAN) injection 1 mg 08-10 08:00: 00 08-10 07:05 :00 No 1mg 1 mg, Slow IV Push, ONCE NOW, 1 dose, On Thu08/10/22 at 0200, STAT [facility] acute hospital thiamine (VITAMIN B1) injection 100 mg 08-10 06:45: 00 08-10 06:52 :00 No 100mg 100 mg, Intravenou s, ONCE, 1 dose, On 08/10/22 at 0045, JACIEL [facility] acute hospital LORazepam (ATIVAN) injection 1 mg 08-10 05:15: 00 08-10 05:22 :00 No 1mg 1 mg, Slow IV Push, ONCE, 1 dose, On 08/09/22 at 2315, STAT [facility] acute hospital ketorolac (TORADOL) injection 15 mg 2021-06 16:00: 00 04-06 14:50 :00 No 15mg 15 mg, Slow IV Push, ONCE, 1 dose, [facility] 04/06/22 at 1100[facility] (PF[facility] 4 mg 2021-06 15:45: 00 04-06 14:50 :00 No 4mg 4 mg, Slow IV Push, ONCE, 1 dose, On 04/06/22 at 1045, [facility] oxazepam (SERAX) capsule 15 mg 12-31 06:28: 17 01-01 06:29 :00 No 15mg 15 mg, Oral, Q12H TAPER, 2 doses, First dose on Thu12/31/21 at 0130, Last dose on Thu12/31/21 at 1330, Routine [facility] acute hospital multivitami n tablet 12-31 00:00: 00 Yes [id number] 1{tbl} Take 1 tablet by mouth in the morning. [facility] acute hospital thiamine 100 mg tablet 12-31 00:00: 00 Yes [id number] 100mg Take 1 tablet by mouth in the morning. [facility] acute hospital aspirin 81 mg chewable tablet 12-31 00:00: 00 Yes [id number] 81mg Take 1 tablet by mouth in the morning. [facility] acute hospital multivitami n tablet 12-31 00:00: 00 Yes [id number] 1{tbl} Take 1 tablet by mouth in the morning. [facility] thiamine 100 mg tablet 12-31 00:00: 00 Yes [id number] 100mg Take 1 tablet by mouth in the morning. [facility] aspirin 81 mg chewable tablet 2021-0 12-31 00:00: 00 Yes [id number] 81mg Take 1 tablet by mouth in the morning. [facility] multivitami n tablet 2021-0 12-31 00:00: 00 Yes [id number] 1{tbl} Take 1 tablet by mouth in the morning. [facility] thiamine 100 mg tablet 0 12-31 00:00: 00 Yes [id number] 100mg Take 1 tablet by mouth in the morning. [facility] aspirin 81 mg chewable tablet 0 12-31 00:00: 00 Yes [id number] 81mg Take 1 tablet by mouth in the morning. [facility] acute hospital multivitami n tablet 0 12-31 00:00: 00 Yes [id number] 1{tbl} Take 1 tablet by mouth in the morning. [facility] thiamine 100 mg tablet 2021-0 12-31 00:00: 00 Yes [id number] 100mg Take 1 tablet by mouth in the morning. [facility] aspirin 81 mg chewable tablet 12-31 00:00: 00 Yes [id number] 81mg Take 1 tablet by mouth in the morning. [facility] acute hospital multivitami n tablet 0 12-31 00:00: 00 Yes [id number] 1{tbl} Take 1 tablet by mouth in the morning. [facility] acute [facility] thiamine 100 mg tablet 0 12-31 00:00: 00 Yes [id number] 100mg Take 1 tablet by mouth in the morning. [facility] aspirin 81 mg chewable tablet 0 12-31 00:00: 00 Yes [id number] 81mg Take 1 tablet by mouth in the morning. [facility] acute hospital multivitami n tablet 2021-0 12-31 00:00: 00 Yes [id number] 1{tbl} Take 1 tablet by mouth in the morning. [facility] thiamine 100 mg tablet 12-31 00:00: 00 Yes [id number] 100mg Take 1 tablet by mouth in the morning. [facility] aspirin 81 mg chewable tablet 12-31 00:00: 00 Yes [id number] 81mg Take 1 tablet by mouth in the morning. [facility] acute hospital foLIC acid 1 mg tablet 12-31 00:00: 00 01-31 04:59 :00 No [id number] 1mg Take 1 tablet by mouth in the morning for 30 days. [facility] acute hospital foLIC acid 1 mg tablet 12-31 00:00: 00 01-31 04:59 :00 No [id number] 1mg Take 1 tablet by mouth in the morning for 30 days. [facility] acute hospital foLIC acid 1 mg tablet 12-31 00:00: 00 01-31 04:59 :00 No [id number] 1mg Take 1 tablet by mouth in the morning for 30 days. [facility] acute hospital metFORMIN 500 mg tablet 12-30 00:00: 00 Yes [id number] 500mg Take 1 tablet by mouth in the morning and 1 tablet in the evening. Take with meals. [facility] metFORMIN 500 mg tablet 12-30 00:00: 00 Yes [id number] 500mg Take 1 tablet by mouth in the morning and 1 tablet in the evening. Take with meals. [facility] acute hospital metFORMIN 500 mg tablet 12-30 00:00: 00 Yes [id number] 500mg Take 1 tablet by mouth in the morning and 1 tablet in the evening. Take with meals. [facility] acute hospital metFORMIN 500 mg tablet 12-30 00:00: 00 Yes [id number] 500mg Take 1 tablet by mouth in the morning and 1 tablet in the evening. Take with meals. [facility] acute [facility] metFORMIN 500 mg tablet 12-30 00:00: 00 Yes [id number] 500mg Take 1 tablet by mouth in the morning and 1 tablet in the evening. Take with meals. [facility] acute hospital metFORMIN 500 mg tablet 12-30 00:00: 00 Yes [id number] 500mg Take 1 tablet by mouth in the morning and 1 tablet in the evening. Take with meals. [facility] aspirin chewable tablet 81 mg 12-29 14:00: 00 Yes 81mg 81 mg, Oral, DAILY, First dose on 12/29/21 at 0900, Until Discontinu ed, Routine [facility] acute hospital sulfur hexafluorid e microsphr (LUMASON) injection 5 mL 12-29 13:45: 00 12-29 13:45 :00 No [id number] 5mL 5 mL, Intravenou s, ONCE, 1 dose, On 12/29/21 at 0845, Routine
member services representative approving Restricted medication : STEFANIE GORMAN [facility] acute hospital enoxaparin (LOVENOX) injection 40 mg 12-29 13:00: 00 Yes 40mg 40 mg, Subcutaneo us, Q24H, First dose on 12/29/21 at 0800, Until Discontinu ed, Routine [facility] acute hospital Sliding Scale Insulin - Lispro (HumaLOG) + Fsbg Testing 12-29 13:00: 00 Yes Subcutaneo us, TID MEALS+HS, First dose on 12/29/21 at 0800, Until Discontinu ed, Routine [facility] acute [facility] diazePAM (VALIUM) injection 10 mg 12-29 05:30: 00 12-29 04:40 :00 No 10mg 10 mg, Intravenou s, ONCE, 1 dose, On 12/29/21 at 0030, Routine [facility] acute [facility] diazePAM (VALIUM) injection 10 mg 12-29 04:15: 00 12-29 03:17 :00 No 10mg 10 mg, Intravenou s, ONCE, 1 dose, On 12/28/21 at 2315, Routine [facility] acute hospital diazePAM (VALIUM) injection 5 mg 12-29 03:45: 01 Yes 5mg 5 mg, Intravenou s, QIDPRN, Starting on 12/28/21 at 2245, Until Discontinu ed, Routine, Seizures, Agitation [facility] acute hospital foLIC acid (FOLATE) tablet 1 mg 12-29 03:45: 00 Yes 1mg 1 mg, Oral, DAILY, First dose on 12/28/21 at 2245, Until Discontinu ed, Routine [facility] acute hospital thiamine (VITAMIN B1) tablet 100 mg 12-29 03:45: 00 Yes 100mg 100 mg, Oral, DAILY, First dose (after last modificati on) on 12/28/21 at 2245, Until Discontinu ed, Routine [facility] acute hospital glucagon (GLUCAGEN DIAGNOSTIC KIT) injection 1 mg 12-29 03:42: 19 Yes 1mg 1 mg, Intramuscu lar, PRN, Starting on 12/28/21 at 2242, Until Discontinu ed, JACIEL, Blood Glucose < or = 70 mg/dL and patient is unable to swallow or has mental changes. [facility] acute hospital dextrose 10% (D10W) bolus infusion 250 mL [...] blood glucose is < 80 mg/dL, repeat.
[facility] acute hospital LORazepam (ATIVAN) injection 1 mg 12-29 03:30: 00 12-29 02:32 :00 No 1mg 1 mg, Intravenou s, ONCE, 1 dose, On 12/28/21 at 2230, Routine
Is the medication being used for status epilepticu s? No [facility] acute hospital oxazepam (SERAX) capsule 15 mg 12-29 00:28: 20 Yes 15mg 15 mg, Oral, Q4HPRN, Starting on 12/28/21 at 1928, Until Discontinu ed, Routine, Only while awake for DBP equal to or greater than 100, HR equal to or greater than 100. [facility] acute hospital ondansetron (ZOFRAN (PF)) injection 4 mg 12-29 00:23: 47 Yes 4mg 4 mg, Slow IV Push, Q6HPRN, Starting on 12/28/21 at 1923, Until Discontinu ed, Routine, Nausea and Vomiting (N/V) [facility] acute hospital acetaminoph en (TYLENOL) tablet 650 mg 12-29 00:23: 37 Yes 650mg 650 mg, Oral, Q6HPRN, Starting on 12/28/21 at 1923, Until Discontinu ed, Routine, Pain (scale 1-3), Temp > 38.5 C [facility] acute hospital chlordiazeP OXIDE (LIBRIUM) capsule 25 mg 12-28 23:15: 00 12-28 23:24 :00 No 25mg 25 mg, Oral, ONCE, 1 dose, On 12/28/21 at 1815, JACIEL [facility] acute hospital NaCl 0.9% (NS) bolus infusion 2,000 mL 12-28 22:45: 00 12-28 23:18 :00 No 2000mL at 999 mL/hr, 2,000 mL, IV Infusion, ONCE, 1 dose, On 12/28/21 at 1745, JACIEL [facility] acute hospital LORazepam (ATIVAN) injection 1 mg 12-28 20:45: 00 12-28 20:49 :00 No 1mg 1 mg, Slow IV Push, ONCE, 1 dose, On 12/28/21 at 1545, STAT
Is the medication being used for status epilepticu s? No [facility] acute hospital acetaminoph en (TYLENOL) 500 mg tablet 10-06 00:00: 00 Yes 500mg Take 1 Tab by mouth every 6 (six) hours as needed for Pain. [facility] acute hospital acetaminoph en (TYLENOL) 500 mg tablet 10-06 00:00: 00 Yes 500mg Take 1 Tab by mouth every 6 (six) hours as needed for Pain. [facility] acute hospital acetaminoph en (TYLENOL) 500 mg tablet 10-06 00:00: 00 Yes 500mg Take 1 Tab by mouth every 6 (six) hours as needed for Pain. [facility] acute hospital acetaminoph en (TYLENOL) 500 mg tablet 10-06 00:00: 00 Yes 500mg Take 1 Tab by mouth every 6 (six) hours as needed for Pain. [facility] acute hospital acetaminoph en (TYLENOL) 500 mg tablet 10-06 00:00: 00 Yes 500mg Take 1 Tab by mouth every 6 (six) hours as needed for Pain. [facility] acute hospital acetaminoph en (TYLENOL) 500 mg tablet 10-06 00:00: 00 Yes 500mg Take 1 Tab by mouth every 6 (six) hours as needed for Pain. [facility] acute hospital Vital Signs Vital Name Observation Time Observation Value Comments S alliglo Systolic blood pressure 2022-11-11 20:31:31 116 mm[Hg] [facility] Diastolic blood pressure 2022-11-11 20:31:31 77 mm[Hg] [facility] Heart rate 2022-11-11 20:31:31 84 /min [facility] Respiratory rate 2022-11-11 20:31:31 12 /min [facility] Oxygen saturation in Arterial blood by Pulse oximetry 2022-11-11 20:31:31 90 /min [facility] Body temperature 2022-11-11 18:49:00 37.11 Theresa [facility] Body height 2022-11-11 18:49:[address] [facility] Body weight 2022-11-11 18:49:[address] [facility] BMI 2022-11-11 18:49:00 26.57 kg/m2 [facility] Body temperature 2022-08-11 14:00:00 36.5 Theresa [facility] Systolic blood pressure 2022-08-11 10:00:00 116 mm[Hg] [facility] Diastolic blood pressure 2022-08-11 10:00:00 71 mm[Hg] [facility] Heart rate 2022-08-11 10:00:00 70 /min [facility] Respiratory rate 2022-08-11 10:00:00 16 /min [facility] Body weight 2022-08-11 10:00:[address] [facility] BMI 2022-08-11 10:00:00 25.58 kg/m2 [facility] Oxygen saturation in Arterial blood by Pulse oximetry 2022-08-11 10:00:00 100 /min [facility] Body height 2022-08-10 22:12:[address] [facility] Systolic blood pressure 2022-04-06 16:00:00 125 mm[Hg] [facility] Diastolic blood pressure 2022-04-06 16:00:00 75 mm[Hg] [facility] Heart rate 2022-04-06 16:00:00 87 /min [facility] Respiratory rate 2022-04-06 16:00:00 22 /min [facility] Oxygen saturation in Arterial blood by Pulse oximetry 2022-04-06 16:00:00 98 /min [facility] Body temperature 2022-04-06 14:41:00 37 Theresa [facility] Body height 2022-04-06 14:41:[address] [facility] Body weight 2022-04-06 14:41:[address] [facility] BMI 2022-04-06 14:41:00 24.80 kg/m2 [facility] Systolic blood pressure 2022-01-20 02:27:00 121 mm[Hg] [facility] Diastolic blood pressure 2022-01-20 02:27:00 75 mm[Hg] [facility] Heart rate 2022-01-20 02:27:00 79 /min [facility] Respiratory rate 2022-01-20 02:27:00 12 /min [facility] Oxygen saturation in Arterial blood by Pulse oximetry 2022-01-20 02:27:00 98 /min [facility] Body temperature 2022-01-19 22:19:00 36.44 Theresa [facility] Body weight 2022-01-19 22:19:[address] [facility] BMI 2022-01-19 22:19:00 23.56 kg/m2 [facility] Systolic blood pressure 2021-12-30 20:52:00 134 mm[Hg] [facility] Diastolic blood pressure 2021-12-30 20:52:00 76 mm[Hg] [facility] Heart rate 2021-12-30 20:52:00 67 /min [facility] Body temperature 2021-12-30 20:26:00 36.67 Theresa [facility] Oxygen saturation in Arterial blood by Pulse oximetry 2021-12-30 20:26:00 99 /min [facility] Respiratory rate 2021-12-30 16:21:00 18 /min [facility] Body weight 2021-12-30 08:27:[address] [facility] BMI 2021-12-30 08:27:00 23.61 kg/m2 [facility] Body height 2021-12-29 01:29:[address] [facility] Procedures Procedure Date / Time Performed Performing Clinician Source MAGNESIUM 2022-11-11 19:05:[address] [facility] BASIC METABOLIC PANEL (NA, K, CL, CO2, GLUCOSE, BUN, CREATININE, CA) 2022-11-11 19:05:00 Hemant Klein [facility] ETHANOL 2022-11-11 19:05:[address] [facility] CBC WITH DIFF 2022-11-11 19:05:00 Hemant Klein [facility] POCT GLUCOSE (AUTOMATED) 2022-08-11 13:36:00 Arvind Prado [facility] PHOSPHORUS 2022-08-11 10:35:00 Jessica Prado [facility] MAGNESIUM 2022-08-11 10:35:00 Jessica Prado [facility] AMMONIA, PLASMA 2022-08-11 10:35:00 Jessica [facility] COMP. METABOLIC PANEL ([id number]) 2022-08-11 10:35:[facility] 2022-08-11 10:35:[address] [facility] POCT GLUCOSE (AUTOMATED) 2022-08-11 02:15:00 Arvind Prado [facility] POCT GLUCOSE (AUTOMATED) 2022-08-10 23:10:00 Arvind Prado gregoria [facility] POCT GLUCOSE (AUTOMATED) 2022-08-10 18:20:00 Arvind Prado gregoria [facility] POCT GLUCOSE (AUTOMATED) 2022-08-10 14:11:00 Arvind Prado [facility] POCT GLUCOSE (AUTOMATED) 2022-08-10 10:59:00 Gopal Driscoll [facility] COVID-19 (ID NOW RAPID TESTING) 2022-08-10 07:17:00 Rayray Driscoll [facility] LAB ONLY COVID INTERPRETATION 2022-08-10 07:17:00 Rayray Driscoll [facility] HB ECG ROUTINE & RHYTHM STRIP 2022-08-10 06:03:48 Rayray Driscoll [facility] URINALYSIS 2022-08-10 05:46:00 Rayray Driscoll [facility] URINE DRUG (IMMUNOASSAY) - COMPREHENSIVE DRUG SCREEN W/O REFLEX 2022-08-10 05:45:00 Rayray Driscoll [facility] CREATINE KINASE 2022-08-10 05:16:00 [facility] 2022-08-10 05:16:00 Rayray Driscoll [facility] MAGNESIUM 2022-08-10 05:16:00 Rayray Driscoll [facility] TROPONIN I 2022-08-10 05:16:00 Rayray Driscoll [facility] COMP. METABOLIC PANEL ([id number]) 2022-08-10 05:16:00 Rayray Driscoll [facility] ETHANOL 2022-08-10 05:16:[address] [facility] CBC WITH DIFF 2022-08-10 05:16:[address] [facility] N-TERMINAL PRO-BNP 2022-08-10 05:16:00 Rayray Driscoll [facility] CRITICAL CARE 2022-08-10 04:52:[address] [facility] XR CHEST 1 VW 2022-04-06 14:51:50 Diya Chowdhury [facility] LIPASE 2022-04-06 14:42:00 [facility] 2022-04-06 14:42:00 Diya Chowdhury [facility] COMP. METABOLIC PANEL ([id number]) 2022-04-06 14:42:00 Diya Chowdhury [facility] CBC WITH DIFF 2022-04-06 14:42:00 Diya Chowdhury [facility] PROTHROMBIN TIME / INR 2022-04-06 14:42:00 Diya Chowdhury [facility] ACTIVATED PARTIAL THRMPLAS NELDA 2022-04-06 14:42:00 Diya Chowdhury [facility] LACTIC ACID WHOLE BLOOD 2022-01-20 00:22:00 Leticia Baldwin [facility] URINE DRUG (IMMUNOASSAY) - COMPREHENSIVE DRUG SCREEN 2022-01-19 23:10:00 Leticia Baldwin [facility] URINALYSIS 2022-01-19 23:10:00 Leticia Baldwin [facility] TROPONIN I 2022-01-19 23:00:00 Leticia Baldwin [facility] COMP. METABOLIC PANEL (52556) 2022-01-19 23:00:00 Leticia Baldwin [facility] LITHIUM 2022-01-19 23:00:00 [facility] 2022-01-19 23:00:00 Leticia Baldwin [facility] CBC WITH DIFF 2022-01-19 23:00:00 Leitcia Baldwin [facility] COVID-19 (ID NOW RAPID TESTING) 2022-01-19 23:00:00 Leticia Baldwin [facility] CT HEAD WO CONTRAST 2022-01-19 22:49:00 Leticia Baldwin [facility] XR CHEST 1 VW 2022-01-19 22:41:[address] [facility] POCT GLUCOSE (AUTOMATED) 2022-01-19 22:25:00 Leticia Baldwin [facility] POCT GLUCOSE (AUTOMATED) 2021-12-30 21:55:00 Arvind Prado [facility] POCT GLUCOSE (AUTOMATED) 2021-12-30 16:21:00 Arvind Prado [facility] POCT GLUCOSE (AUTOMATED) 2021-12-30 12:30:00 Arvind Prado [facility] HEPATIC FUNCTION PANEL (85302) (ALB,T.PRO,BILI T,BU/BC,ALT,AST,ALK PHOS) 2021-12-30 09:28:00 Maira Gaitan [facility] POCT GLUCOSE (AUTOMATED) 2021-12-30 02:11:00 Arvind Prado [facility] POCT GLUCOSE (AUTOMATED) 2021-12-29 21:41:00 Arvind Prado [facility] POCT GLUCOSE (AUTOMATED) 2021-12-29 16:37:00 Arvind Prado [facility] TRANSTHORACIC ECHO (TTE) COMPLETE W/ CONTRAST 2021-12-29 13:05:00 Jessica Prado [facility] POCT GLUCOSE (AUTOMATED) 2021-12-29 12:41:00 Arvind Prado [facility] TROPONIN I 2021-12-29 09:42:00 [place], Jessica [facility] TROPONIN I 2021-12-29 04:55:00 Jessica Prado [facility] CT HEAD WO CONTRAST 2021-12-28 21:18:22 Poppy Renteria [facility] AMMONIA, PLASMA 2021-12-28 21:00:00 Pia Renteria [facility] COVID-19 (ID NOW RAPID TESTING) 2021-12-28 20:42:00 Pia Renteria [facility] LAB ONLY COVID INTERPRETATION 2021-12-28 20:42:00 Pia Renteria [facility] URINE DRUG (IMMUNOASSAY) - COMPREHENSIVE DRUG SCREEN W/O REFLEX 2021-12-28 20:42:00 Pia Renteria [facility] URINALYSIS 2021-12-28 20:40[facility]00 [facility] 2021-12-28 20:40:00 Corina Rneteria [facility] TROPONIN I 2021-12-28 20:40:[address] [facility] THYROID STIMULATING HORMONE 2021-12-28 20:40:00 Jessica Prado [facility] COMP. METABOLIC PANEL (35733) 2021-12-28 20:40:00 Pia Renteria [facility] LIPID PANEL (69975)(TOTAL CHOLESTEROL, TRIGLYCERIDES, HDL) 2021-12-28 20:40:00 Demetrius Langford [facility] ETHANOL 2021-12-28 20:40:00 Demetrius Langford [facility] CBC WITH DIFF 2021-12-28 20:40:00 Pia Renteria [facility] GLYCOSYLATED HEMOGLOBIN (A1C) 2021-12-28 20:40:00 Jessica Prado [facility] PROTHROMBIN TIME / INR 2021-12-28 20:40:00 Lesly Renteria [facility] XR CHEST 1 VW 2021-12-28 20:16:00 Pia Renteria [facility] HB ECG ROUTINE & RHYTHM STRIP 2021-12-28 20:04:59 Pia Renteria [facility] Encounters Start Date/Time End Date/Time Encounter Type Admission Type Attending [facility] Care Department Encounter ID Source 2021-09-17 16:45:00 Inpatient [facility] [id number] [facility] 2020-06-06 16:07:00 Inpatient [facility] [id number] [facility] 2020-06-06 06:20:00 Inpatient [facility] [id number] [facility] 2020-06-05 19:35:00 Inpatient [facility] [id number] [facility] 2020-05-23 19:53:00 Inpatient [facility] [id number] [facility] 2020-05-23 19:53:00 Inpatient [facility] [id number] [facility] 2022-11-11 13:50:00 2022-11-11 16:07:00 Emergency X HEMANT KLEIN [facility] [id number] General acute hospital 2022-11-11 13:50:00 2022-11-11 16:07:00 Emergency [facility] [id number] [id number] [id number] General acute hospital 2022-10-14 20:59:00 2022-10-14 20:59:00 Emergency [facility] [id number] [facility] 2022-10-14 20:59:00 2022-10-14 20:59:00 Emergency Emergency ClareDeborah brotherschloe [facility] [id number] [facility] 2022-08-09 22:59:00 2022-08-11 13:02:00 Outpatient JESSICA GAINES [facility] [id number] General acute hospital 2022-08-09 22:59:00 2022-08-11 13:02:00 Emergency Rayray Driscoll [facility]el[facility] Edionwe[facility] [id number] [id number] [id number] General acute hospital 2022-04-06 09:38:00 2022-04-06 11:42:00 Emergency X DIYA CHOWDHURY [facility] ERT [id number] General acute hospital 2022-04-06 09:38:00 2022-04-06 11:42:00 Emergency Diya Chowdhury [facility] [id number] [id number] 4.2.7.2.686 [id number] General acute hospital 2022-03-07 12:38:00 2022-03-07 12:38:00 Emergency [facility] [id number] [facility] 2022-03-07 12:38:00 2022-03-07 12:38:00 Emergency Emergency Fidel Cuellar [facility] [id number] [facility] 2022-01-19 17:18:00 2022-01-19 22:00:00 Emergency X DIRK YARBROUGH [facility] ERT [id number] General acute hospital 2022-01-19 17:18:00 2022-01-19 22:00:00 Emergency Leticia Baldwin Julio C [facility] [id number] 350.1.13.10 4.2.7.2.686 [id number] General acute hospital 2021-12-31 00:00:00 2021-12-31 00:00:00 Transition of Care Faye Portillo [id number] 350.1.13.10 4.2.7.2.686 [id number] General acute hospital 2021-12-28 14:53:00 2021-12-30 17:42:00 Inpatient X JESSICA PRADO [facility] MARGO [id number] General acute hospital 2021-12-28 14:53:00 2021-12-30 17:42:00 Hospital Encounter Pia Renteria Jelani [facility] [id number] 350.1.13.10 4.2.7.2.686 [id number] General acute hospital 2021-09-17 16:47:00 2021-09-17 16:47:00 Emergency [facility] [id number] [facility] 2020-06-06 16:07:00 2020-06-06 16:07:00 Emergency [facility] [id number] [facility] Results Test Description Test Time Test Comments Results Resul t Comments Source ETHANOL 2022-11-11 19:45:56 ALCOHOL<10mg/dL0 11/11/2022 2:45 PM [facility]<10 Kglkhzts64-946 Toxic>100 Depression of 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>400 [facility] 19:41:47* Test Item Value Reference Range Interpretation Comme nts MAGNESIUM (test code = 3597248446) 1.8 mg/dL 1.7-2.4 Lab Interpretation (test cod e = 24719-8) Normal [facility] WITH [id number] 19:25:26* Test Item Value Reference Range Interpretation [...] 33.9 g/dL 31.2-35.0 RDW-SD (test code = 83994-4) 46.0 fL 38.5-51.6 RDW-CV (test code = 788-0) 13.5 % 12.1-15.4 PLT (test code = 777-3) 237 See_Comment [Automated messa ge] The system which generated this result transmitted reference range: 150 - 328 10*3/?L. The reference range was not used to interpret this result as normal/abnormal. MPV (test code = 30874-1) 8.9 fL 9.8-13.0 L NRBC/100 WBC (test code = 5084720053) 0.0 See_Comment [Automated ArtSetters ssage] The system which generated this result transmitted reference range: 0.0 - 10.0 /100 WBCs. The reference range was not used to interpret this result as normal/abnormal. NRBC x10^3 (test code = 1183764153) See_Comment [Automated Full Color Gamesa ge] The system which generated this result transmitted reference range: 10*3/?L. The reference range was not used to interpret this result as normal/abnormal. GRAN MAT (NEUT) % (test code = 770-8) 71.2 % IMM GRAN % (test code = 2277285999) 0.30 % LYMPH % (test code = 736-9) 18.2 % MONO % (test code = 5905-5) 8.4 % EOS % (test code = 713-8) 1.0 % BASO % (test code = 706-2) 0.9 % GRAN MAT x10^3(ANC) (test code = 1416402278) 4.86 10*3/uL 1.99-6.95 IMM GRAN x10^3 (test code = 0174366000) 0.00-0.06 LYMPH x10^3 (test code = 731-0) 1.24 10*3/uL 1.09-3.23 MONO x10^3 (test code = 742-7) 0.57 10*3/uL 0.36-1.02 EOS x10^3 (test code = 711-2) 0.07 10*3/uL 0.06-0.53 BASO x10^3 (test code = 704-7) 0.06 10*3/uL 0.01-0.09 Lab Interpretation (test code = 84842-3) [facility] Urinalysis Rflx Cult/Xweqx4480-87-13 22:20:00* Test Item Value Reference Range Interpretation Comme nts Color,Urine (test code = UCOL) Yellow Yellow Clarity,Urine (test code = UCLAR) Clear Clear Ph, Urine (test code = UPH) 7.0 5.0-9.0 N Specific [place],Urine (test code = USG) 1.020 1.005-1.030 N [...] code = ULEU) Negative mg/dL Negative Drug Screen,Srkgn3624-43-01 22:20:00* Test Item Value Reference Range Interpretation [...] UPROP) Negative Negative Complete Blood Count Auto Bekg8392-62-59 21:21:00* Test Item Value Reference Range Interpretation [...] code = NRBCP) 0 % Comprehensive Metabolic Avtrb6087-20-92 21:21:00* Test Item Value Reference Range Interpretation [...] a race coefficient. Additional information canbe found at:[email or web address]_[email or web address] 5.pdf ([email or web address]) [Automated message] The system [...] = ALP) 134 U/L 46-116 H Ethanol Yyaxa0753-15-65 21:21:00* Test Item Value Reference Range Interpretation Comme nts Ethanol (test code = ETOH) < 3 mg/dL The pharmacologi yudy response to blood alcohol levels mayvary from individual to individual. The fatal concentrationhas been reported to be >400mg/dL. POCT GLUCOSE (AUTOMATED)2022-08-11 13:40:35* Test Item Value Reference Range Interpretation Comme nts POCT GLU (test code = 1458137060) 121 mg/dL 70-110 H Lab Interpretation (test cod e = 13268-9) [facility] GLU[facility]SE (AUTOMATED)2022-08-11 02:18:58* Test Item Value Reference Range Interpretation Comme nts POCT GLU (test code = 5312196295) 183 mg/dL 70-110 H Lab Interpretation (test cod e = 50155-0) Abnormal [facility] GLUCOSE (AUTOMATED)2022-08-10 23:16:11* Test Item Value Reference Range Interpretation Comme nts POCT GLU (test code = 0076940558) 176 mg/dL 70-110 H Lab Interpretation (test cod e = 78692-8) Abnormal [facility] GLUCOSE (AUTOMATED)2022-08-10 18:22:51* Test Item Value Reference Range Interpretation Comme nts POCT GLU (test code = 3034650583) 165 mg/dL 70-110 H Lab Interpretation (test cod e = 85700-1) Abnormal [facility] GLUCOSE (AUTOMATED)2022-08-10 14:18:05* Test Item Value Reference Range Interpretation Comme nts POCT GLU (test code = 0121068981) 138 mg/dL 70-110 H Lab Interpretation (test cod e = 73729-1) Abnormal [facility] GLUCOSE (AUTOMATED)2022-08-10 11:01:21* Test Item Value Reference Range Interpretation Comme nts POCT GLU (test code = 8316641057) 143 mg/dL 70-110 H Lab Interpretation (test cod e = 37504-5) [facility]normal [facility] [id number] 06:51:18* Test Item Value Reference Range Interpretation Comme nts TROPONIN I (test code = 7386708514) 0.008 ng/mL <=0.034 JUAN ALBERTO (test code [...] of biotin. Lab Interpretation (test code = 42763-5) Normal [facility]MINAL EXE-[id number] 06:47:37* Test Item Value Reference Range Interpretation Comme nts NT-proBNP (test code = 0766371970) 37 pg/mL <=125 JUAN ALBERTO (test code = JUAN ALBERTO) Biotin has been reported to cause a negative bias, interpret results relative to patient's use of biotin. Lab Interpretation (test code = 80356-1) Normal [facility]2023-02-19 06:25:52 ALCOHOL<10mg/dL08/10/2022 12:[facility] Jtfhxpns23-319 Toxic>100 Depression of CHOCOLATE PACKER>400 Fatalities [facility]ortedUnUniversity [facility] CenterCOMP. METABOLIC PANEL (40825)2022-08-10 06:19:15* Test Item Value Reference Range Interpretation Comme nts NA (test code = 3084390851) 135 mmol/L 135-145 K (test code = 2013237506) 4.3 mmol/L 3.5-5.0 CL (test code = 5517036697) 98 mmol/L 98-108 CO2 TOTAL (test code = 4621920373) 30 mmol/L 23-31 AGAP (test code = 1954703969) 7 2-16 BUN (test code = 0656055716) 11 mg/dL 7-23 GLUCOSE (test code = 2552392288) 153 mg/dL 70-110 H CREATININE (test code = 8808309538) 0.77 mg/dL 0.60-1.25 TOTAL BILI (test code = 7396174030) 0.9 mg/dL 0.1-1.1 CALCIUM (test code = 2491823642) 10.0 mg/dL 8.6-10.6 T PROTEIN (test code = 2835036179) 7.7 g/dL 6.3-8.2 ALBUMIN (test code = 9207338581) 4.6 g/dL 3.5-5.0 ALK PHOS (test code = 7507326059) 92 U/L 34-122 ALTv (test code = 1742-6) 35 U/L 5-50 AST(SGOT) (test code = 4252260658) 42 U/L 13-40 H eGFR (test code = 8686284199) 106.1 mL/min/1.73m2 JUAN ALBERTO (test code = [...] imaging tests). Lab Interpretation (test code = 60043-3) Abnormal [facility]2023-02-19 06:19:15* Test Item Value Reference Range Interpretation Comme nts MAGNESIUM (test code = 6178162490) 2.2 mg/dL 1.7-2.4 Lab Interpretation (test cod e = 77160-4) Normal [facility]2023-02-19 06:18:55* Test Item Value Reference Range Interpretation Comme nts LIPASE (test code = 3552664631) 18 U/L 0-220 Lab Interpretation (test cod e = 59417-5) Normal [facility]CREATINE [id number] 06:18:55* Test Item Value Reference Range Interpretation Comme nts CK (test code = 9864762464) 174 U/L 33-194 Lab Interpretation (test cod e = 91760-0) Normal [facility] WITH [id number] 06:02:35* Test Item Value Reference Range Interpretation Comme nts WBC (test code = 6690-2) 7.50 See_Comment [Automated Bitium] The system which generated this result transmitted reference range: 4.20 - 10.70 10*3/?L. The reference range was not used to interpret this result as normal/abnormal. RBC (test code = 789-8) 4.80 See_Comment [Automated Full Color Gamesa Puzl] The system which generated this result transmitted [...] 32.4 g/dL 31.2-35.0 RDW-SD (test code = 04198-4) 50.2 fL 38.5-51.6 RDW-CV (test code = 788-0) 14.3 % 12.1-15.4 PLT (test code = 777-3) 241 See_Comment [Automated messa ge] The system which generated this result transmitted reference range: 150 - 328 10*3/?L. The reference range was not used to interpret this result as normal/abnormal. MPV (test code = 85440-9) 8.6 fL 9.8-13.0 L NRBC/100 WBC (test code = 9232126014) 0.0 See_Comment [Automated ArtSetters ssage] The system which generated this result transmitted reference range: 0.0 - 10.0 /100 WBCs. The reference range was not used to interpret this result as normal/abnormal. NRBC x10^3 (test code = 1622927690) See_Comment [Automated messa ge] The system which generated this result transmitted reference range: 10*3/?L. The reference range was not used to interpret this result as normal/abnormal. GRAN MAT (NEUT) % (test code = 770-8) 63.9 % IMM GRAN % (test code = 6420094963) 0.50 % LYMPH % (test code = 736-9) 17.6 % MONO % (test code = 5905-5) 16.5 % EOS % (test code = 713-8) 0.7 % BASO % (test code = 706-2) 0.8 % GRAN MAT x10^3(ANC) (test code = 6261878104) 4.79 10*3/uL 1.99-6.95 IMM GRAN x10^3 (test code = 6320840121) 0.04 10*3/uL 0.00-0.06 LYMPH x10^3 (test code = 731-0) 1.32 10*3/uL 1.09-3.23 MONO x10^3 (test code = 742-7) 1.24 10*3/uL 0.36-1.02 H EOS x10^3 (test code = 711-2) 0.05 10*3/uL 0.06-0.53 L BASO x10^3 (test code = 704-7) 0.06 10*3/uL 0.01-0.09 Lab Interpretation (test code = 03685-9) Abnormal [facility] [id number] 15:15:32* Test Item Value Reference Range Interpretation Comments TROPONIN I (test code = 1393052704) 0.007 ng/mL See_Comment [Automated message] The system [...] of biotin. Lab Interpretation (test code = 48711-8) Normal [facility]ervilleaPTT2022-10-16 15:08:29* Test Item Value Reference Range Interpretation Comme [facility] APTT Patient (test code = 3173-2) See_Comment [Automated message] The system which generated this result transmitted reference range: 23 - 38 Seconds. The reference range was not used to interpret this result as normal/abnormal. JUAN ALBERTO (test code = JUAN ALBERTO) The [facility] patient population mean normal value for aPTT is 30 seconds. Lab Interpretation (test code = 53290-4) Normal [facility]ervillePROTHROMBIN TIME / [id number] 15:06:28* Test Item Value Reference Range Interpretation Comme [facility] PROTIME PATIENT (test code = 5964-2) See_Comment [Automated Full Color Gamesa ge] The system which generated this result transmitted reference range: 12.0 - 14.7 Seconds. The reference range was not used to interpret this result as normal/abnormal. INR (test code = 6301-6) Normal INR <1.1; Warfarin Therapeutic range 2.0 to 3.0 or 2.5 to 3.5, depending upon the indications. Lab Interpretation (test code = 61776-5) Normal [facility]COMP. METABOLIC PANEL (02630)2022-04-06 15:03:31* Test Item Value Reference Range Interpretation Comme nts NA (test code = 9348999523) 136 mmol/L 135-145 K (test code = 7879764872) 5.0 mmol/L 3.5-5 CL (test code = 5572529051) 104 mmol/L 98-108 CO2 TOTAL (test code = 8953834089) 21 mmol/L 23-31 L AGAP (test code = 5036822129) 2-16 BUN (test code = 3249582845) 11 mg/dL 7-23 GLUCOSE (test code = 3571826643) 162 mg/dL 70-110 H CREATININE (test code = 2506406939) 0.52 mg/dL 0.6-1.25 L TOTAL BILI (test code = 0196100320) 1.0 mg/dL 0.1-1.1 CALCIUM (test code = 0686603270) 9.3 mg/dL 8.6-10.6 T PROTEIN (test code = 7109603718) 7.4 g/dL 6.3-8.2 ALBUMIN (test code = 4276595140) 4.4 g/dL 3.5-5 ALK PHOS (test code = 3085781211) 134 U/L 34-122 H ALTv (test code = 1742-6) 17 U/L 5-50 AST(SGOT) (test code = 2739696663) 38 U/L 13-40 eGFR (test code = 0449866277) mL/min/1.73m2 JUAN ALBERTO (test code = JUAN [...] imaging tests). Lab Interpretation (test code = 24584-9) Abnormal [facility]LIPASE, [id number] 15:03:31* Test Item Value Reference Range Interpretation Comme nts LIPASE (test code = 7017757294) 29 U/L 0-220 Lab Interpretation (test cod e = 74157-5) Normal [facility]CB WITH [id number] 14:51:49* Test Item Value Reference Range Interpretation Comme nts WBC (test code = 6690-2) See_Comment [Course Hero] The system which generated this result transmitted reference range: 4.20 - 10.70 10*3/?L. The reference range was not used to interpret this result as normal/abnormal. RBC (test code = 789-8) See_Comment [Automated Bitium] The system which generated this result transmitted [...] 34.0 g/dL 31.2-35 RDW-SD (test code = 15262-2) 45.9 fL 38.5-51.6 RDW-CV (test code = 788-0) 13.3 % 12.1-15.4 PLT (test code = 777-3) See_Comment [Automated messa ge] The system which generated this result transmitted reference range: 150 - 328 10*3/?L. The reference range was not used to interpret this result as normal/abnormal. MPV (test code = 73872-1) 8.4 fL 9.8-13 L NRBC/100 WBC (test code = 8514232490) See_Comment [Automated ArtSetters ssage] The system which generated this result transmitted reference range: 0.0 - 10.0 /100 WBCs. The reference range was not used to interpret this result as normal/abnormal. NRBC x10^3 (test code = 3639987555) See_Comment [Automated messa ge] The system which generated this result transmitted reference range: 10*3/?L. The reference range was not used to interpret this result as normal/abnormal. GRAN MAT (NEUT) % (test code = 770-8) 63.0 % IMM GRAN % (test code = 1421367752) 0.50 % LYMPH % (test code = 736-9) 25.2 % MONO % (test code = 5905-5) 9.8 % EOS % (test code = 713-8) 0.3 % BASO % (test code = 706-2) 1.2 % GRAN MAT x10^3(ANC) (test code = 5575368862) 3.73 10*3/uL 1.99-6.95 IMM GRAN x10^3 (test code = 1764300086) 0.03 10*3/uL 0-0.06 LYMPH x10^3 (test code = 731-0) 1.49 10*3/uL 1.09-3.23 MONO x10^3 (test code = 742-7) 0.58 10*3/uL 0.36-1.02 EOS x10^3 (test code = 711-2) 0.06-0.53 L BASO x10^3 (test code = 704-7) 0.07 10*3/uL 0.01-0.09 Lab Interpretation (test code = 62648-0) Abnormal [facility], Urinalysis Rflx Cult/Jwxfy6382-79-91 13:53:00* Test Item Value Reference Range Interpretation Comme nts Color,Urine (test code = UCOL) Yellow Yellow Clarity,Urine (test code = UCLAR) Cloudy Clear A Ph, Urine (test code = UPH) 7.5 5.0-9.0 N Specific [place],Urine (test code = USG) 1.025 1.005-1.030 N [...] = ULEU) Negative mg/dL Negative UF REFLEXDrug Screen,Kmoly0846-43-86 13:53:00* Test Item Value Reference Range Interpretation [...] UPROP) Negative Negative Complete Blood Count Auto Talv8945-14-05 12:58:00* Test Item Value Reference Range Interpretation [...] = NRBCP) 0 % Coronavirus PCR, COVID19 Qanbu0280-16-07 12:58:00* Test Item Value Reference Range Interpretation Comme nts Coronavirus PCR, COVID19 Rapid (test code = SARSCOV2) Coronavirus PCR, COVID19 Rapid (test code = TYVKWAM75.1) Reference Range: Negative SARS-CoV-2 PCR Result: (test code = SARS-CoV-2 PCR Result:) Negative by RT-PCR COVID-19 Status: AsymptomaticComprehensive Metabolic Divan1373-03-50 12:58:00* Test Item Value Reference Range Interpretation [...] = ALP) 144 U/L 46-116 H Ethanol Xbiqk1934-94-31 12:58:00* Test Item Value Reference Range Interpretation Comme nts Ethanol (test code = ETOH) < 3 mg/dL The pharmacologi yudy response to blood alcohol levels mayvary from individual to individual. The fatal concentrationhas been reported to be >400mg/dL. WHAFPHX1526-58-84 01:47:56* Test Item Value Reference Range Interpretation Comme nts [place] (test code = 5798458148) 0.7 mmol/L 0.6-1.2 JUAN ALBERTO (test code = JUAN ALBERTO) Toxic Range: ? Greater than 1.2 mmol/L Lab Interpretation (test code = 59580-3) Normal [facility] [id number] 00:26:53* Test Item Value Reference Range Interpretation Comments TROPONIN I (test code = 3120792944) 0.002 ng/mL See_Comment [Automated message] The system [...] of biotin. Lab Interpretation (test code = 67582-8) Normal [facility]2022-08-01 00:18:52 ALCOHOL<10mg/dL01/19/2022 7:18 PM [facility]<10 Civoqozx08-350 Toxic>100 Depression of CHOCOLATE PACKER>400 [facility] [facility]OL[facility] PANEL (29934)2022-01-20 00:16:16* Test Item Value Reference Range Interpretation Comme nts NA (test code = 3287094639) 137 mmol/L 135-145 K (test code = 5961490745) 4.5 mmol/L 3.5-5 CL (test code = 3374809405) 103 mmol/L 98-108 CO2 TOTAL (test code = 9903126999) 26 mmol/L 23-31 AGAP (test code = 1138425517) 2-16 BUN (test code = 6603279344) 10 mg/dL 7-23 GLUCOSE (test code = 5504812303) 121 mg/dL 70-110 H CREATININE (test code = 9185709480) 0.65 mg/dL 0.6-1.25 TOTAL BILI (test code = 8878988008) 0.8 mg/dL 0.1-1.1 CALCIUM (test code = 0853258417) 11.4 mg/dL 8.6-10.6 H T PROTEIN (test code = 4382856418) 7.2 g/dL 6.3-8.2 ALBUMIN (test code = 7962995036) 4.6 g/dL 3.5-5 ALK PHOS (test code = 4725035733) 112 U/L 34-122 ALTv (test code = 1742-6) 19 U/L 5-50 AST(SGOT) (test code = 4050406425) 26 U/L 13-40 eGFR (test code = 9847512635) mL/min/1.73m2 JUAN ALBERTO (test code = JUAN [...] imaging tests). Lab Interpretation (test code = 31904-0) Abnormal [facility] WITH [id number] 23:43:54* Test Item Value Reference Range Interpretation Comme nts WBC (test code = 6690-2) See_Comment [Automated Bitium] The system which generated this result transmitted reference range: 4.20 - 10.70 10*3/?L. The reference range was not used to interpret this result as normal/abnormal. RBC (test code = 789-8) See_Comment [Course Hero] The system which generated this result transmitted [...] 34.4 g/dL 31.2-35 RDW-SD (test code = 05870-0) 44.0 fL 38.5-51.6 RDW-CV (test code = 788-0) 12.6 % 12.1-15.4 PLT (test code = 777-3) See_Comment [Automated messa ge] The system which generated this result transmitted reference range: 150 - 328 10*3/?L. The reference range was not used to interpret this result as normal/abnormal. MPV (test code = 16116-3) 9.1 fL 9.8-13 L NRBC/100 WBC (test code = 1021715821) See_Comment [Automated me ssage] The system which generated this result transmitted reference range: 0.0 - 10.0 /100 WBCs. The reference range was not used to interpret this result as normal/abnormal. NRBC x10^3 (test code = 0301425471) See_Comment [Automated messa ge] The system which generated this result transmitted reference range: 10*3/?L. The reference range was not used to interpret this result as normal/abnormal. GRAN MAT (NEUT) % (test code = 770-8) 69.8 % IMM GRAN % (test code = 1241744554) 0.40 % LYMPH % (test code = 736-9) 18.0 % MONO % (test code = 5905-5) 10.9 % EOS % (test code = 713-8) 0.1 % BASO % (test code = 706-2) 0.8 % GRAN MAT x10^3(ANC) (test code = 0446040949) 5.58 10*3/uL 1.99-6.95 IMM GRAN x10^3 (test code = 1418860943) 0.03 10*3/uL 0-0.06 LYMPH x10^3 (test code = 731-0) 1.44 10*3/uL 1.09-3.23 MONO x10^3 (test code = 742-7) 0.87 10*3/uL 0.36-1.02 EOS x10^3 (test code = 711-2) 0.06-0.53 L BASO x10^3 (test code = 704-7) 0.06 10*3/uL 0.01-0.09 Lab Interpretation (test code = 35981-9) [facility]22-[facility]-19 22:27:41* Test Item Value Reference Range Interpretation Comme nts POCT GLU (test code = 6742533954) 123 mg/dL 70-110 H Lab Interpretation (test cod e = 61899-3) [facility]2021-12-30 22:08:16* Test Item Value Reference Range Interpretation Comme nts POCT GLU (test code = 5393622534) 167 mg/dL 70-110 H Lab Interpretation (test cod e = 92047-3) [facility]2021-12-30 16:50:40* Test Item Value Reference Range Interpretation Comme nts POCT GLU (test code = 3746601853) 154 mg/dL 70-110 H Lab Interpretation (test cod e = 71045-4) [facility] ([facility]2021-12-30 12:38:43* Test Item Value Reference Range Interpretation Comme nts POCT GLU (test code = 4172394725) 164 mg/dL 70-110 H Lab Interpretation (test cod e = 41941-0) [facility]2021-12-30 02:14:58* Test Item Value Reference Range Interpretation Comme nts POCT GLU (test code = 1663834415) 220 mg/dL 70-110 H Lab Interpretation (test cod e = 92665-8) [facility] ([facility]2021-12-29 21:50:02* Test Item Value Reference Range Interpretation Comme nts POCT GLU (test code = 6541109615) 191 mg/dL 70-110 H Lab Interpretation (test cod e = 84839-6) [facility] ([facility])2021-12-29 20:15:01* Test Item Value Reference Range Interpretation Comme nts POCT GLU (test code = 8221146657) 163 mg/dL 70-110 H Lab Interpretation (test cod e = 24490-5) [facility]E)2021-12-29 19:12:22* Test Item Value Reference Range Interpretation Comme nts Height (test code = 1499883615) in Weight (test code = 8645278277) lbs Systolic BP (test code = 8914797200) mmHg Diastolic BP (test code = 4698331585) mmHg Heart Rate (test code = 1272226307) bpm BSA (test code = 0879745319) 1.62 m2 Ao root annulus (test code = 6041695467) 2.45 cm Ao root diam (test code = 9483861256) 2.45 cm Aortic root (test code = 5720568839) 2.45 cm ACS (test code = 8916970827) 1.66 cm LA size (test code = 8104877297) 3.2 cm LVOT diameter (test code = 4051897397) 1.95 cm LVIDD (test code = 2463417054) 3.60 cm IVS (test code = 1890958574) 0.94 cm Interventricular Septum Diastolic Thickness by 2D (test code = 2117799) 0.94 cm LVPWD (test code = 1996276604) 0.80 cm PW (test code = 7137227496) 0.80 cm 0.6-1.1 EF(Teich) (test code = 7886526797) 52.80 % LVIDS (test code = 6434777906) 2.60 cm FS (test code = 0792627487) 27 % EF - 2D (test code = 29992691) 52.80 % LAV(MOD-sp4) (test code = 3449573548) 16.80 mL MV Peak E Jovany (test code = 2163556682) 46.1 cm/s E wave decelartion time (test code = 7170287393) 0.31 s MV Peak A Jovany (test code = 1665207626) 58.1 cm/s E/A ratio (test code = 6528726470) ratio MV E/e' septal (test code = 3626260136) 5.7 cm/s Tapse (test code = 8330955334) 1.60 cm LVOT stroke volume (test code = 6123154768) 52.10 cm3 LVOT peak jovany (test code = 2311008227) 110.6 cm/s LVOT mn grad (test code = 4017405617) mmHg AV LVOT peak gradient (test code = 3019293640) mmHg LVOT peak VTI (test code = 9135858348) 17.4 cm LV V1 mean (test code = 7186049954) 66.10 cm/s Aortic valve mean velocity (test code = 2686626649) 73.0 cm/s Ao peak jovany (test code = 1628668103) 124.6 cm/s Ao VTI (test code = 9103131040) 18.6 cm AV area by cont VTI (test code = 5944274312) 2.8 cm2 AV area peak jovany (test code = 1136429915) 2.7 cm2 Ao max PG (test code = 9616733161) 6.20 mm[Hg] AV peak gradient (test code = 1604765179) mmHg AV valve area (test code = 8410259972) 2.80 cm2 AV mean gradient (test code = 8213403276) mmHg Radiology Study observation (narrative) (test code = 27036-6) JUAN ALBERTO (test code = JUAN ALBERTO) [...] mL of Lumason ultrasound enhancing agent [facility]. [facility]21-[facility]29 12:50:31* Test Item Value Reference Range Interpretation Comme nts POCT GLU (test code = 3001084019) 141 mg/dL 70-110 H Lab Interpretation (test cod e = 27509-4) [facility]normal [facility]roponin [id number] 10:38:31* Test Item Value Reference Range Interpretation Comments TROPONIN I (test code = 9854048457) 0.003 ng/mL See_Comment [Automated message] The system [...] of biotin. Lab Interpretation (test code = 06750-8) Normal [facility]ervilleLIPID PANEL (05271)(TOTAL CHOLESTEROL, TRIGLYCERIDES, HDL)2021-12-29 05:56:47* Test Item Value Reference Range Interpretation Comme nts CHOL (test code = 5322238593) 168 mg/dL 120-200 HDL (test code = 3316901654) 102 mg/dL See_Comment [Automated Full Color Gamesa Puzl] The system which generated this result transmitted reference range: >=40. The reference range was not used to interpret this result as normal/abnormal. HDLC RATIO (test code = 4262360261) See_Comment [Automated Full Color Gamesa ge] The system which generated this result transmitted reference range: <=5.0. The reference range was not used to interpret this result as normal/abnormal. TRIG (test code = 9386931022) 55 mg/dL 30-170 LDL CHOL (test code = 18060-8) 55 mg/dL See_Comment [Automated Full Color Gamesa ge] The system which generated this result transmitted reference range: <=160. The reference range was not used to interpret this result as normal/abnormal. VLDL (test code = 1160157096) 11 mg/dL 5-60 Lab Interpretation (test code = 90167-5) [facility]yroid Stimulating Hormone (TSH)2021-12-29 05:40:29* Test Item Value Reference Range Interpretation Comme nts TSH (test code = 6205917500) See_Comment Biotin has been reported to cause a negative bias, interpret results relative to patient's use of biotin. [Automated message] The system which generated this result transmitted reference range: 0.45 - 4.70 mIU/L. The reference range was not used to interpret this result as normal/abnormal. Lab Interpretation (test code = 86653-4) Normal [facility]roponin [id number] 05:34:29* Test Item Value Reference Range Interpretation Comments TROPONIN I (test code = 6671706833) 0.006 ng/mL See_Comment [Automated message] The system [...] of biotin. Lab Interpretation (test code = 15545-3) Normal [facility]ETHANOL2022-07-10 04:43:01 ALCOHOL<10mg/dL12/28/2021 11:43 PM [facility] Greater than or equal to 80 mg/dL. NOTE: Whole blood values are approximately 10% to 15% lower than serum and plasma.[facility] [place] Glycosylated Hemoglobin (A1C)2021-12-29 01:51:44* Test Item Value Reference Range Interpretation Comme nts HGB A1C (test code = 4548-4) 6.5 % 4-5.7 H JUAN ALBERTO (test code = JUAN ALBERTO) Reference RangesNormal: <5.7%Prediabetes: 5.7 - 6.4%Diabetes: > 6.5% Lab Interpretation (test code = 50636-2) Abnormal [facility]TROPONIN [id number] 21:26:50* Test Item Value Reference Range Interpretation Comments TROPONIN I (test code = 1459846728) 0.002 ng/mL See_Comment [Automated message] The system [...] of biotin. Lab Interpretation (test code = 74906-4) Normal [facility]ervilleN-TERMINAL BAB-[id number] 21:23:29* Test Item Value Reference Range Interpretation Comme nts NT-proBNP (test code = 9868876334) 41 pg/mL See_Comment [Automated message] The system which generated this result transmitted reference range: <=125. The reference range was not used to interpret this result as normal/abnormal. JUAN ALBERTO (test code = JUAN ALBERTO) Biotin has been reported to cause a negative bias, interpret results relative to patient's use of biotin. Lab Interpretation (test code = 63038-9) Normal [facility]ervilleAMMONIA, [id number] 21:20:38* Test Item Value Reference Range Interpretation Comme nts AMMONIA (test code = 7675016095) 9-33 L Slight hemolysis Lab Interpretation (test code = 16731-8) [facility]normal [facility]COMP. METABOLIC PANEL (85097)2021-12-28 21:08:48* Test Item Value Reference Range Interpretation Comme nts NA (test code = 9340352658) 137 mmol/L 135-145 K (test code = 3196431844) 4.5 mmol/L 3.5-5 CL (test code = 4853131034) 97 mmol/L 98-108 L CO2 TOTAL (test code = 8109875547) 29 mmol/L 23-31 AGAP (test code = 2181349180) 2-16 BUN (test code = 1404667888) 10 mg/dL 7-23 GLUCOSE (test code = 8702592962) 188 mg/dL 70-110 H CREATININE (test code = 0461580774) 0.58 mg/dL 0.6-1.25 L TOTAL BILI (test code = 2300406264) 0.8 mg/dL 0.1-1.1 CALCIUM (test code = 6282979410) 10.5 mg/dL 8.6-10.6 T PROTEIN (test code = 7880121361) 7.6 g/dL 6.3-8.2 ALBUMIN (test code = 7961544994) 4.5 g/dL 3.5-5 ALK PHOS (test code = 6990432536) 107 U/L 34-122 ALTv (test code = 1742-6) 66 U/L 5-50 H AST(SGOT) (test code = 2134887275) 96 U/L 13-40 H eGFR (test code = 7193081774) mL/min/1.73m2 JUAN ALBERTO (test code = JUAN [...] imaging tests). Lab Interpretation (test code = 28910-4) Abnormal [facility]ervillePROTHROMBIN TIME / [id number] 21:01:25* Test Item Value Reference Range Interpretation Comme nts PROTIME PATIENT (test code = 5964-2) See_Comment [Automated Bitium] The system which generated this result transmitted reference range: 12.0 - 14.7 Seconds. The reference range was not used to interpret this result as normal/abnormal. INR (test code = 6301-6) Normal INR <1.1; Warfarin Therapeutic range 2.0 to 3.0 or 2.5 to 3.5, depending upon the indications. Lab Interpretation (test code = 57790-4) Normal [facility]ervilleCBC WITH [id number] 20:54:03* Test Item Value Reference Range Interpretation Comme nts WBC (test code = 6690-2) See_Comment [Automated Full Color Games[employer] Puzl] The system which generated this result transmitted reference range: 4.20 - 10.70 10*3/?L. The reference range was not used to interpret this result as normal/abnormal. RBC (test code = 789-8) See_Comment [Automated Full Color Games[employer] Puzl] The system which generated this result transmitted [...] 34.2 g/dL 31.2-35 RDW-SD (test code = 86019-0) 47.8 fL 38.5-51.6 RDW-CV (test code = 788-0) 13.3 % 12.1-15.4 PLT (test code = 777-3) See_Comment [Automated Full Color Gamesa ge] The system which generated this result transmitted reference range: 150 - 328 10*3/?L. The reference range was not used to interpret this result as normal/abnormal. MPV (test code = 59220-7) 8.6 fL 9.8-13 L NRBC/100 WBC (test code = 1348731374) See_Comment [Automated ArtSetters ssage] The system which generated this result transmitted reference range: 0.0 - 10.0 /100 WBCs. The reference range was not used to interpret this result as normal/abnormal. NRBC x10^3 (test code = 4295517571) See_Comment [Automated Full Color Gamesa ge] The system which generated this result transmitted reference range: 10*3/?L. The reference range was not used to interpret this result as normal/abnormal. GRAN MAT (NEUT) % (test code = 770-8) 64.1 % IMM GRAN % (test code = 9927354000) 0.40 % LYMPH % (test code = 736-9) 16.6 % MONO % (test code = 5905-5) 17.2 % EOS % (test code = 713-8) 0.2 % BASO % (test code = 706-2) 1.5 % GRAN MAT x10^3(ANC) (test code = 8260153206) 3.47 10*3/uL 1.99-6.95 IMM GRAN x10^3 (test code = 7842640785) 0-0.06 LYMPH x10^3 (test code = 731-0) 0.90 10*3/uL 1.09-3.23 L MONO x10^3 (test code = 742-7) 0.93 10*3/uL 0.36-1.02 EOS x10^3 (test code = 711-2) 0.06-0.53 L BASO x10^3 (test code = 704-7) 0.08 10*3/uL 0.01-0.09 Lab Interpretation (test code = 81341-2) [facility]normal [facility]ervilleEthanol [id number] 21:08:00* Test Item Value Reference Range Interpretation Comme nts Ethanol (test code = ETOH) < 3 mg/dL The pharmacologi yudy response to blood alcohol levels mayvary from individual to individual. The fatal concentrationhas been reported to be >400mg/dL. Complete Blood Count Auto [id number] 17:33:00* Test Item Value Reference Range Interpretation [...] = NRBCP) 0 % UA, Urinalysis Rflx Cult/[id number] 17:33:00* Test Item Value Reference Range Interpretation Comme nts Color,Urine (test code = UCOL) Dark Yellow Yellow A Clarity,Urine (test code = UCLAR) Clear Clear Ph, Urine (test code = UPH) 6.5 5.0-9.0 N Specific [place],Urine (test code = USG) 1.015 1.005-1.030 N [...] = ULEU) Trace mg/dL Negative A Urine Pvlegymehyw5993-35-97 17:33:00* Test Item Value Reference Range Interpretation Comme nts RBC,Urine (test code = URBCUF) None Seen /HPF 0-2 WBC,Urine (test code = UWBCUF) 0-5 /HPF 0-5 Epithelial Cell,Urine (test code = UECUF) 0-5 /HPF 0-5 Casts,Urine (test code = UCASTUF) None Seen /LPF None Seen Bacteria,Urine (test code = UBACTUF) None Seen /hpf None Seen Drug Screen,Fgavs4917-79-04 17:33:00* Test Item Value Reference Range Interpretation [...] code = UPROP) Negative Negative Comprehensive Metabolic Vxrrz4269-02-59 17:33:00* Test Item Value Reference Range Interpretation [...] 101 U/L 46-116 N Sars-CoV-2/FLU A/B RSV [id number] 17:31:00* Test Item Value Reference Range Interpretation [...] SARS-CoV-2 PCR Result:) Negative by RT-PCR Drug Screen,Igbco7685-89-54 17:20:00* Test Item Value Reference Range Interpretation [...] UPROP) Negative Negative Complete Blood Count Auto [id number] 17:14:00* Test Item Value Reference Range Interpretation [...] code = NRBCP) 0 % Comprehensive Metabolic Bkhob2398-49-82 17:14:00* Test Item Value Reference Range Interpretation [...] = ALP) 207 U/L 46-116 H Ethanol Ezgbs2564-87-76 17:14:00* Test Item Value Reference Range Interpretation Comme nts Ethanol (test code = ETOH) 192 mg/dL Complete Blood Count Auto Btwo2863-60-17 20:20:00* Test Item Value Reference Range Interpretation [...] code = NRBCP) 0 % Comprehensive Metabolic Efpkl1147-81-57 20:20:00* Test Item Value Reference Range Interpretation [...] = ALP) 189 U/L 46-116 H Ethanol Ftkjd4231-69-97 20:20:00* Test Item Value Reference Range Interpretation Comme nts Ethanol (test code = ETOH) 10 mg/dL Sars-CoV-2/FLU A/B RSV [id number] 20:20:00* Test Item Value Reference Range Interpretation [...] Negative by Nucleic Acid Amplification UA, Urinalysis Fybqetnnfzu1832-67-55 20:20:00* Test Item Value Reference Range Interpretation Comme nts Color,Urine (test code = UCOL) Yellow Y Clarity,Urine (test code = UCLAR) Clear Clear PH,Urine (test code = UPH.XX) 7.0 5.5-8.5 Specific [place],Urine (test code = USG) 1.020 1.005-1.030 N [...] code = ULEU) Negative cells/uL Negative Drug Screen,Ajcpx8939-52-21 20:20:00* Test Item Value Reference Range Interpretation [...] TRACY CT head/brain wo [facility] [address] [place] [address] Patient Name: Walt Velazquez Medical Record#: [id number] Address: Homeless City/State/Zip: [place] [address]: Vinnie Navarro MD Phone: Insurance: Self Pay /Age/Sex: 1970/50/M Admit/Reg Date: 09/17/[address]: Vinnie Naavrro MD Location: [facility]/ PCP: Md KERWIN Flores Date of Service: 09/17/21 Order (s): CT head/brain wo con CPT Code: 12443 Report Number: [id number] Reason for Exam: Altered mental status Location [...] Karen Jay MD 09/17/2021 6:42 PM CDTWorkstation: [id number] Dictated By: Karen Sanders MD 09/17/211824 Signed By: Karen Sanders MD 09/17/211824 TD/TT: 09/17/211824 Tech: [id number] cc: JOSEE; GENESIS* Vinnie Navarro MD; Pcp-Md KERWIN Stiles"
[2023-08-05 09:26] LABS: Absolute Lymphocytes (CBC) 0.8 K/uL (0.7-4.9); Hematocrit 43.6 % (39.6-49.0); Lymphocytes % 15.8 % (15.3-44.8); MCV 93.4 fL (80-100); MPV 6.2 fL (7.6-11.3); Platelets 208 thou/uL (152-406); RBC Red Blood Cell Count 4.67 M/uL (4.33-5.43)
--- NOTE | 2023-08-05 09:43 | RAD REPORT ---
EXAM DESCRIPTION: CT - Abdomen Pelvis Wo Contrast - 08/05/2023 9:28 am CLINICAL HISTORY: ABD PAIN COMPARISON: Abdomen Pelvis W Contrast dated 12/22/2021; Abdomen Pelvis W Contrast dated 05/22/2018; Abdomen Pelvis W Contrast dated 02/08/2018; Abdomen Pelvis W Contrast dated 06/23/2016; Chest Singl e View dated 04/17/2023 TECHNIQUE: Thin cut axial CT imaging of the abdomen and pelvis was performed without IV contrast. Mu ltiplanar reformats were generated and reviewed. All CT scans are performed using dose optimization technique as appropriate and may include automated exposure control or mA/KV adjustment according to patient size. FINDINGS: No suspicious findings in the lung bases. The liver again shows diffuse parenchymal hypoattenuation suggesting steatosis. Spleen, adrenal gland s, and pancreas show no suspicious findings. Gallbladder layering hyperdense material suggestive of s ludge. No findings to suggest intra or extrahepatic biliary ductal dilation. Symmetric renal contour, without suspicious parenchymal findings within limits of noncontrast techniq ue. No evidence of radiopaque calculi or hydroureteronephrosis. No dilated bowel loops or bowel wall thickening. No free air, free fluid or inflammatory stranding. N o hernia, mass or bulky lymphadenopathy. The urinary bladder is decompressed limiting evaluation. Melony arent bladder wall thickening may relate to nondistention. No suspicious bony findings. IMPRESSION: No acute intra-abdominal process. Diffuse hepatic steatosis. Gallbladder sludge without calcified stones. Apparent bladder wall thickening favored to relate to nondistention, although ongoing cystitis is dif ficult to exclude.
--- NOTE | 2023-08-05 09:43 | RAD REPORT ---
EXAM DESCRIPTION: RADChest Single View08/05/2023 9:33 am CLINICAL HISTORY: CHEST PAIN COMPARISON: Chest Single View dated 07/24/2023; Chest Single View dated 07/23/2023; Chest Single View da naomie 07/19/2023; Chest Single View dated 04/17/2023 TECHNIQUE: Portable AP view of the chest. FINDINGS: The lungs are clear. No pneumothorax or effusion. The cardiomediastinal contours are unre markable. IMPRESSION: No acute cardiopulmonary process.
[2023-08-05 09:53] LABS: Barbiturates NEGATIVE (NEGATIVE); Benzodiazepines NEGATIVE (NEGATIVE); Cocaine NEGATIVE (NEGATIVE); METHAMPHETAM NEGATIVE (NEGATIVE); Methadone NEGATIVE (NEGATIVE); Opiates NEGATIVE (NEGATIVE); Phencyclidine NEGATIVE (NEGATIVE); THC Cannibis NEGATIVE (NEGATIVE)
[2023-08-05 09:54] LABS: Potassium 4.2 mEq/L (3.5-5.1); Troponin High Sensitivity 10.5 pg/mL (<58.9)
--- NOTE | 2023-08-05 10:02 | ER ---
Nurse's Notes [facility] Name: Walt Velazquez Age: 52 yrs Sex: Male : 1970 Arrival Date: 08/05/2023 Time: 09:04 Bed 19 Private MD: Diagnosis: Chest pain, unspecified;Abdominal pain, unspecified;Alcohol dependence Presentation: 08/05 09:07 Chief complaint: EMS states: PATIENT COMPLAINS OF CHEST PAIN STARTED YESTERDAY. STATES db LAST DRINK OF ALCOHOL WAS YESTERDAY. PICKED UP FROM ASSISTED TODAY. PT HAS OFFICER WITH HIM AND IS IN CUSTODY. PT STATES DRINKS DAILY AND IS STARTED TO SHAKE UNCONTROLLABLY. Coronavirus screen: Client denies travel out of the [place] in the last 14 days. At this time, the client does not indicate any symptoms associated with coronavirus-19. Ebola Screen: Patient negative for fever greater than or equal to 101.5 degrees Fahrenheit, and additional compatible Ebola Virus Disease symptoms Patient denies exposure to infectious person. Patient denies travel to an Ebola-affected area in the 21 days before illness onset. No symptoms or risks identified at this time. Initial Sepsis Screen: Does the patient meet any 2 criteria? No. Patient's initial sepsis screen is negative. Does the patient have a suspected source of infection? No. Patient's initial sepsis screen is negative. Risk Assessment: Do you want to hurt yourself or someone else? Patient reports no desire to harm self or others. Onset of symptoms was August 05, 2023. 09:07 Method Of Arrival: EMS: [facility] db 09:07 Acuity: LATASHA 2 db Triage Assessment: 09:07 General: Appears uncomfortable, Behavior is cooperative, anxious. Pain: Complains of db pain in chest. Neuro: Level of Consciousness is awake, alert, obeys commands, Oriented to person, place, time. Respiratory: Airway is patent Respiratory effort is even, unlabored, Respiratory pattern is regular, symmetrical. Historical: - Allergies: :36 Trazodone; db - PMHx: :36 Alcoholism; Bipolar II; Hypertensive disorder; Parkinsons; Seizure; db - Immunization history:: Adult Immunizations unknown. - Social history:: Smoking status: Patient reports the use of cigarette tobacco products, smokes one pack cigarettes per day. - Family history:: not pertinent. - Hospitalizations: : No recent hospitalization is reported. Screenin:[facility] ED Fall Risk Assessment (Adult) History of falling in the last 3 months, db including since admission Yes- single mechanical fall (1 pt) Confusion or Disorientation No (0 pts) Intoxicated or Sedated No (0 pts) Impaired Gait No (0 pts) Mobility Assist Device Used No (0 pt) Altered Elimination No (0 pt) Score/Fall Risk Level 0 - 2 = Low Risk Oriented to surroundings, Maintained a safe environment. Abuse screen: Denies threats or abuse. Denies injuries from another. Nutritional screening: No deficits noted. Tuberculosis screening: No symptoms or risk factors identified. Assessment: 09:21 Reassessment: Patient and/or family updated on plan of care and expected duration. Pain db level reassessed. Patient is alert, oriented x 3, equal unlabored respirations, skin warm/dry/pink. COMPLAINS OF CP. SHAKING LAST DRINK YESTERDAY AT 12P. General: Appears in no apparent distress. Behavior is cooperative, anxious. Pain: Complains of pain in chest. Neuro: Level of Consciousness is awake, alert, obeys commands, Oriented to person, place, time, situation. 10:33 Reassessment: Patient appears in no apparent distress at this time. Patient and/or db family updated on plan of care and expected duration. Pain level reassessed. REPEAT EKG DONE PRIOR TO DC. Respiratory: Airway is patent Respiratory effort is even, unlabored, Respiratory pattern is regular, symmetrical. Vital Signs: 09:07 BP 143 / 86; Pulse 88; Resp 16; Temp 99.1; Pulse Ox 100% on R/A; Weight 63.5 kg; Height db 5 ft. 3 in. ; 09:39 BP 118 / 71; Pulse 82; Resp 18; Pulse Ox 99% on R/A; db 09:07 Body Mass Index 24.80 (63.50 kg, 160.02 cm) db ED Course: 09:06 Patient arrived in ED. rn 09:06 Kaiser Marie MD is Attending Physician. rn 09:09 Shannon Iqbal, ROBERTO is Primary Nurse. db 09:20 Inserted saline lock: 22 gauge in right forearm, using aseptic technique. Blood db collected. 09:30 CT Abd/Pelvis - Without Contrast In Process Unspecified. EDMS 09:34 XRAY Chest (1 view) In Process Unspecified. EDMS 09:36 Triage completed. db 09:37 Arm band placed on Patient placed in an exam room. db 10:34 No provider procedures requiring assistance completed. IV discontinued, intact, db bleeding controlled, No redness/swelling at site. 10:34 Patient has correct armband on for positive identification. Provided Education on: DC. db Administered Medications: 09:37 Drug: Diazepam IVP 5 mg IVP once Route: IVP; Site: right forearm; db Medication: 09:39 VIS not applicable for this client. db Outcome: 10:02 Discharge ordered by . rn 10:34 Discharged to Law Enforcement db 10:34 Condition: stable 10:34 Instructed on discharge instructions, follow up and referral plans. 10:35 Patient left the ED. db Signatures: Dispatcher [employer] EDKaiser Solano MD MD rn Benton, Danielle, RN RN db
--- NOTE | 2023-08-05 10:02 | EDPHYS ---
Physician Documentation [facility] Name: Walt Velazquez Age: 52 yrs Sex: Male : 1970 Arrival Date: 08/05/2023 Time: 09:04 Bed 19 Private MD: ED Physician Kaiser Marie HPI: 08/05 09:15 This 52 yrs old Male presents to ER via Unassigned with complaints of chest rn pain. 09:15 The patient or guardian reports chest pain that is located primarily in the chest rn diffusely. Onset: at an unknown time. The pain does not radiate. Associated signs and symptoms: Pertinent positives: None. Pertinent negatives: cough, shortness of breath, syncope. The chest pain is described as aching. Duration: The patient or guardian reports multiple episodes, that are intermittent. Modifying factors: The symptoms are alleviated by nothing. the symptoms are aggravated by nothing. Severity of pain: At its worst the pain was mild in the emergency department the pain is unchanged. The patient has experienced similar episodes in the past. The patient has not recently seen a physician. Historical: - Allergies: 09:36 Trazodone; db - PMHx: 09:36 Alcoholism; Bipolar II; Hypertensive disorder; Parkinsons; Seizure; db - Immunization history:: Adult Immunizations unknown. - Social history:: Smoking status: Patient reports the use of cigarette tobacco products, smokes one pack cigarettes per day. - Family history:: not pertinent. - Hospitalizations: : No recent hospitalization is reported. ROS: 09:16 Constitutional: Negative for fever, chills, and weight loss, Neck: Negative for injury, rn pain, and swelling, Cardiovascular: Positive for chest pain Respiratory: Negative for shortness of breath, cough, wheezing, and pleuritic chest pain, Abdomen/GI: Positive for abdominal pain Back: Negative for injury and pain, MS/Extremity: Negative for injury and deformity, Skin: Negative for injury, rash, and discoloration, Neuro: Negative for headache, weakness, numbness, tingling, and seizure, Exam: 09:16 Constitutional: This is a well developed, well nourished patient who is awake, alert, rn and in no acute distress. Head/Face: Normocephalic, atraumatic. ENT: Dry mucous membranes. Neck: Trachea midline, no thyromegaly or masses palpated, and no cervical lymphadenopathy. Supple, full range of motion without nuchal rigidity, or vertebral point tenderness. No Meningismus. Cardiovascular: Regular rate and rhythm. No pulse deficits. Respiratory: No increased work of breathing, no retractions or nasal flaring. Abdomen/GI: Soft, no focal tenderness or peritoneal signs MS/ Extremity: Pulses equal, no cyanosis. Neurovascular intact. Full, normal range of motion. Equal circumference. Neuro: Awake and alert, GCS 15, oriented to person, place, time, and situation. Cranial nerves II-XII grossly intact. Motor strength 5/5 in all extremities. Sensory grossly intact. Cerebellar exam normal. Normal gait. Patient with tremor of extremities, no tongue fasciculations noted. 10:27 ECG was reviewed by the Attending Physician. rn Vital Signs: 09:07 BP 143 / 86; Pulse 88; Resp 16; Temp 99.1; Pulse Ox 100% on R/A; Weight 63.5 kg; Height db 5 ft. 3 in. ; 09:39 BP 118 / 71; Pulse 82; Resp 18; Pulse Ox 99% on R/A; db 09:07 Body Mass Index 24.80 (63.50 kg, 160.02 cm) db MDM: 09:06 Patient medically screened. rn 09:21 ED course: Police here with patient, EMS reports patient was arrested and on his way to [facility] when began to report chest pain and brought here for clearance and evaluation.. 10:00 Differential diagnosis: acute myocardial infarction, acute pericarditis, anxiety, rn coronary artery disease costochondritis, esophagitis, gastritis, gastroesophageal reflux disease (GERD), pancreatitis, pleurisy, pneumothorax. HEART Score: History: Slightly Suspicious (0), ECG: Non specific repolarization disturbance / LBTB / PM (1), Age: > 45 and < 65 years (1), Risk Factors: 1 or 2 risk factors (1), Troponin: < or = 1 x Normal Limit (0), Total Score = 3. Data reviewed: vital signs, nurses notes, lab test result(s), EKG, radiologic studies, plain films, and as a result, I will discharge patient. Care significantly affected by the following chronic conditions: Alcoholism and fatty liver. Counseling: I had a detailed discussion with the patient and/or guardian regarding the historical points, exam findings, and any diagnostic results supporting the discharge/admit diagnosis, lab results, radiology results, the need for outpatient follow up, to return to the emergency department if symptoms worsen or persist or if there are any questions or concerns that arise at home. Special discussion: Based on the patient's history, exam, and Dx evaluation, there is no indication for emergent intervention or inpatient Tx. It is understood by the patient/guardian that if the Sx's persist or worsen they need to return immediately for re-evaluation. Based on the patient's Hx, exam, and Dx evaluation, there is no indication for emergent surgery or inpatient Tx. It is understood by the patient/guardian that if the Sx's persist or worsen they need to return immediately for re-evaluation. I discussed with the patient/guardian in detail that at this point there is no indication for admission to the hospital. It is understood, however, that if the symptoms persist or worsen the patient needs to return immediately for re-evaluation. 08/05 09:07 Order name: Basic Metabolic Panel; Complete Time: :08/05 09:07 Order name: CBC with Diff; Complete Time: 08/05 09:07 Order name: Troponin HS; Complete Time: :08/05 09:07 Order name: ETOH Level; Complete Time: 08/05 09:07 Order name: Urine Drug Screen; Complete Time: :08/05 09:07 Order name: XRAY Chest (1 view); Complete Time: 08/05 09:16 Order name: CT Abd/Pelvis - Without Contrast; Complete Time: 08/05 09:07 Order name: EKG; Complete Time: :08/05 09:07 Order name: Cardiac monitoring; Complete Time: :08/05 09:07 Order name: EKG - Nurse/Tech; Complete Time: :08/05 09:07 Order name: IV Saline Lock; Complete Time: :08/05 09:07 Order name: Labs collected and sent; Complete Time: :08/05 09:07 Order name: O2 Per Protocol; Complete Time: :08/05 09:07 Order name: O2 Sat Monitoring; Complete Time: 10: rn EC:27 Rate is 84 beats/min. Rhythm is regular. QRS [place] is Normal. NV interval is normal. QRS rn interval is normal. QT interval is normal. No Q waves. T waves are Normal. No ST changes noted. Clinical impression: NSR w/ Non-specific ST/T Changes. Interpreted by me. Reviewed by me. Administered Medications: 09:37 Drug: Diazepam IVP 5 mg IVP once Route: IVP; Site: right forearm; db Disposition Summary: 08/05/23 10:02 Discharge Ordered Notes: Location: Home rn Problem: new rn Symptoms: have improved rn Condition: Stable rn Diagnosis - Chest pain, unspecified rn - Abdominal pain, unspecified rn - Alcohol dependence rn Followup: rn - With: Private Physician - When: As needed - Reason: Recheck today's complaints, Re-evaluation by your physician Discharge Instructions: - Discharge Summary Sheet rn - Alcohol Withdrawal Syndrome rn - Nonspecific Chest Pain, Adult rn - Alcohol Abuse and Nutrition rn - Fatty Liver Disease rn Forms: - Medication Reconciliation Form rn - Thank You Letter rn - 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
[2023-08-05 11:06] VITALS: BP 118/71; TEMP 99.1; O2SAT 99
--- NOTE | 2023-08-06 14:43 | EKG ---
Test Date: 2023-08-05 Test Time: 09:43:10 Industrial Electrical Engineer: [place] MEASUREMENT RESULTS: Intervals: Rate: 83 AL: 160 QRSD: 70 QT: 350 QTc: 411 [place]: P: 48 AL: 160 QRS: 43 T: -26 INTERPRETIVE STATEMENTS: Normal sinus rhythm Normal ECG Compared to ECG 07/24/2023 22:03:47 No significant changes Electronically Signed On 08-06-23 14:41:04 HUMAN RESOURCES TRAINING MANAGER by Cristhian Hernandez
== END ==
LOC: ER 09:04
DX: R07.9 Chest pain, unspecified (principal); R10.9 Unspecified abdominal pain; F10.20 Alcohol dependence, uncomplicated; F17.210 Nicotine dependence, cigarettes, uncomplicated; Z88.5 Allergy status to narcotic agent
CPT/HCPCS: 36415; 71045; 74176; 80048; 80307; 82077; 84484; 85025

== ENCOUNTER → 2023-08-27 | Emergency (ER) | payer SELFPAY ==
--- OUTSIDE RECORDS SUMMARY | 2023-08-27 18:45 | XMS REPORT | Continuity of Care Document ---
Author Name Unknown Address [address] [facility] [place] [address] [facility] Address [address] [facility] [place] [address] Care Team Providers Care Client Care Coordinator Name Role Phone Pcp-None Primary Care Physician Unavailab HEMANT Adame Attending Clinician Unavailable Hemant Klein MD Attending Clinician [phone] Pan Pinto Attending Clinician Unavailab JESSICA Gallardo Attending Clinician Unavailable Rayray Driscoll MD Attending Clinician [phone] Jessica Prado MD Attending Clinician [phone] Oswald Murphy MD Attending Clinician [phone] DIYA CHOWDHURY Attending Clinician Unavailab Diya Mackey DO Attending Clinician [phone] Fidel Cuellar Attending Clinician Unavailable DIRK YARBROUGH Attending Clinician Unavailable Leticia Rowland Attending Clinician [phone] Dirk Yarbrough MD Attending Clinician [phone] Faye Portillo LVN Attending Clinician [phone] Pia Reddy Attending Clinician [phone] Vinnie Navarro Attending Clinician Unavailable OSWALD MURPHY Admitting Clinician Unavailable Oswald Murphy MD Admitting Clinician [phone] DIYA CHOWDHURY Admitting Clinician UnavailLeticia Gaytan Admitting Clinician Unavailable JESSICA PRADO Admitting Clinician Unavailable Jessica Prado MD Admitting Clinician [phone] Payers Payer Name Policy Type Policy Number Effective Date Expirati on Date Source [facility] [id number] 2022 00:00:00 Problems Condition Name Condition Details [...] s DA Active U 4-25 00:00: 00 [facility] No Known Drug Allergie s DA Active U 0 9-16 00:00: 00 [facility] No Known Drug Allergie s DA Active U 0 3-29 00:00: 00 [facility] No Known Drug Allergie s DA Active U 2019-06 2-16 00:00: 00 [facility] No Known Drug Allergie s DA Active U 2019-06 2-15 00:00: 00 [facility] No Known Drug Allergie s DA Active U 2019-06 2-02 00:00: 00 [facility] Trazodon e Propensi ty to adverse reaction s Active Other - See comments 10-06 00:00: 00 [facility] TRAZODON E DRUG INGREDI Active Other-Cmnt 10-06 00:00: 00 [facility] Social History Social Habit Start Date Stop Date Quantity Comments Source History of tobacco use Cigarette Smoker [facility] Exposure to SARS-CoV-2 (event) 2022-11-01 00:00:00 2022-11-11 13:57:[address] [facility] Tobacco use and exposure 2022-08-10 00:00:00 2022-08-10 00:00:00 User of [address]okeless tobacco [facility] Alcohol intake 2022-08-10 00:00:00 2022-08-10 00:00:00 Current drinker of alcohol (finding) [facility] Tobacco Comment 2022-08-10 00:00:00 2022-08-10 00:00:00 1/[address] [facility] Sex Ass[birth year] At 1970 00:00:00 1970 00:00:00 [facility] Smoking Status Start Date Stop Date Source Smokes tobacco daily 2022-08-10 00:00:00 [facility] Medications Ordered Medication Name Filled [...] 08-12 00:00: 00 09-12 04:59 :00 No [id number] 1mg Take 1 tablet by mouth in [...] ONCE, 1 dose, [facility] 4 mg 2021-06 15:45: 00 04-06 14:50 :00 No 4mg 4 mg, Slow IV Push, ONCE, 1 dose, On 04/06/22 at 1045, [facility] oxazepam (SERAX) capsule 15 mg 12-31 06:28: 17 01-01 06:29 :00 No 15mg 15 mg, Oral, Q12H TAPER, 2 doses, First dose on Thu12/31/21 at 0130, Last dose on Thu12/31/21 at 1330, Routine [facility] multivitami n tablet 12-31 00:00: 00 Yes [id number] 1{tbl} Take 1 tablet by mouth in the morning. [facility] thiamine 100 mg tablet 12-31 00:00: 00 Yes [id number] 100mg Take 1 tablet by mouth in the morning. [facility] aspirin 81 mg chewable tablet 12-31 00:00: 00 Yes [id number] 81mg Take 1 tablet by mouth in the morning. [facility] multivitami n tablet 12-31 00:00: 00 Yes [id number] 1{tbl} Take 1 tablet by mouth in the morning. [facility] thiamine 100 mg tablet 12-31 00:00: 00 Yes [id number] 100mg Take 1 tablet by mouth in the morning. [facility] aspirin 81 mg chewable tablet 2021-0 12-31 00:00: 00 Yes [id number] 81mg Take 1 tablet by mouth in the morning. [facility] multivitami n tablet 2021-0 12-31 00:00: 00 Yes [id number] 1{tbl} Take 1 tablet by mouth in the morning. [facility] thiamine 100 mg tablet 0 12-31 00:00: 00 Yes [id number] 100mg Take 1 tablet by mouth in the morning. [facility] aspirin 81 mg chewable tablet 0 12-31 00:00: 00 Yes [id number] 81mg Take 1 tablet by mouth in the morning. [facility] multivitami n tablet 0 12-31 00:00: 00 Yes [id number] 1{tbl} Take 1 tablet by mouth in the morning. [facility] thiamine 100 mg tablet 2021-0 12-31 00:00: 00 Yes [id number] 100mg Take 1 tablet by mouth in the morning. [facility] aspirin 81 mg chewable tablet 12-31 00:00: 00 Yes [id number] 81mg Take 1 tablet by mouth in the morning. [facility] multivitami n tablet 0 12-31 00:00: 00 Yes [id number] 1{tbl} Take 1 tablet by mouth in the morning. [facility] thiamine 100 mg tablet 0 12-31 00:00: 00 Yes [id number] 100mg Take 1 tablet by mouth in the morning. [facility] aspirin 81 mg chewable tablet 0 12-31 00:00: 00 Yes [id number] 81mg Take 1 tablet by mouth in the morning. [facility] multivitami n tablet 2021-0 12-31 00:00: 00 Yes [id number] 1{tbl} Take 1 tablet by mouth in the morning. [facility] thiamine 100 mg tablet 12-31 00:00: 00 Yes [id number] 100mg Take 1 tablet by mouth in the morning. [facility] aspirin 81 mg chewable tablet 12-31 00:00: 00 Yes [id number] 81mg Take 1 tablet by mouth in the morning. [facility] foLIC acid 1 mg tablet 12-31 00:00: 00 01-31 04:59 :00 No [id number] 1mg Take 1 tablet by mouth in the morning for 30 days. [facility] foLIC acid 1 mg tablet 12-31 00:00: 00 01-31 04:59 :00 No [id number] 1mg Take 1 tablet by mouth in the morning for 30 days. [facility] foLIC acid 1 mg tablet 12-31 00:00: 00 01-31 04:59 :00 No [id number] 1mg Take 1 tablet by mouth in the morning for 30 days. [facility] metFORMIN 500 mg tablet 12-30 00:00: 00 Yes [id number] 500mg Take 1 tablet by mouth in the morning and 1 tablet in the evening. Take with meals. [facility] metFORMIN 500 mg tablet 12-30 00:00: 00 Yes [id number] 500mg Take 1 tablet by mouth in the morning and 1 tablet in the evening. Take with meals. [facility] metFORMIN 500 mg tablet 12-30 00:00: 00 Yes [id number] 500mg Take 1 tablet by mouth in the morning and 1 tablet in the evening. Take with meals. [facility] metFORMIN 500 mg tablet 12-30 00:00: 00 Yes [id number] 500mg Take 1 tablet by mouth in the morning and 1 tablet in the evening. Take with meals. [facility] metFORMIN 500 mg tablet 12-30 00:00: 00 Yes [id number] 500mg Take 1 tablet by mouth in the morning and 1 tablet in the evening. Take with meals. [facility] metFORMIN 500 mg tablet 12-30 00:00: 00 Yes [id number] 500mg Take 1 tablet by mouth in the morning and 1 tablet in the evening. Take with meals. [facility] aspirin chewable tablet 81 mg 12-29 14:00: 00 Yes 81mg 81 mg, Oral, DAILY, First dose on 12/29/21 at 0900, Until Discontinu ed, Routine [facility] sulfur hexafluorid e microsphr (LUMASON) injection 5 mL 12-29 13:45: 00 12-29 13:45 :00 No [id number] 5mL 5 mL, Intravenou s, ONCE, 1 dose, On 12/29/21 at 0845, Routine
membership administrator approving Restricted medication : STEFANIE GORMAN [facility] [...] Systolic blood pressure 2022-11-11 20:31:31 116 mm[Hg] [facility] Diastolic blood pressure 2022-11-11 20:31:31 77 mm[Hg] [facility] Heart rate 2022-11-11 20:31:31 84 /min [facility] Respiratory rate 2022-11-11 20:31:31 12 /min [facility] Oxygen saturation in Arterial blood by Pulse oximetry 2022-11-11 20:31:31 90 /min [facility] Body temperature 2022-11-11 18:49:[address] [facility] Body height 2022-11-11 18:49:00 160 cm [facility] Body weight 2022-11-11 18:49:00 68.04 kg [facility] BMI 2022-11-11 18:49:00 26.57 kg/m2 [facility] Body temperature 2022-08-11 14:00:[address] [facility] Systolic blood pressure 2022-08-11 10:00:00 116 mm[Hg] [facility] Diastolic blood pressure 2022-08-11 10:00:00 71 mm[Hg] [facility] Heart rate 2022-08-11 10:00:00 70 /min [facility] Respiratory rate 2022-08-11 10:00:00 16 /min [facility] Body weight 2022-08-11 10:00:00 65.499 kg [facility] BMI 2022-08-11 10:00:00 25.58 kg/m2 [facility] Oxygen saturation in Arterial blood by Pulse oximetry 2022-08-11 10:00:00 100 /min [facility] Body height 2022-08-10 22:12:00 160 cm [facility] Systolic blood pressure 2022-04-06 16:00:00 125 mm[Hg] [facility] Diastolic blood pressure 2022-04-06 16:00:00 75 mm[Hg] [facility] Heart rate 2022-04-06 16:00:00 87 /min [facility] Respiratory rate 2022-04-06 16:00:00 22 /min [facility] Oxygen saturation in Arterial blood by Pulse oximetry 2022-04-06 16:00:00 98 /min [facility] Body temperature 2022-04-06 14:41:[address] [facility] Body height 2022-04-06 14:41:00 160 cm [facility] Body weight 2022-04-06 14:41:00 63.504 kg [facility] BMI 2022-04-06 14:41:00 24.80 kg/m2 [facility] Systolic blood pressure 2022-01-20 02:27:00 121 mm[Hg] [facility] Diastolic blood pressure 2022-01-20 02:27:00 75 mm[Hg] [facility] Heart rate 2022-01-20 02:27:00 79 /min [facility] Respiratory rate 2022-01-20 02:27:00 12 /min [facility] Oxygen saturation in Arterial blood by Pulse oximetry 2022-01-20 02:27:00 98 /min [facility] Body temperature 2022-01-19 22:19:[address] [facility] Body weight 2022-01-19 22:19:00 60.328 kg [facility] BMI 2022-01-19 22:19:00 23.56 kg/m2 [facility] Systolic blood pressure 2021-12-30 20:52:00 134 mm[Hg] [facility] Diastolic blood pressure 2021-12-30 20:52:00 76 mm[Hg] [facility] Heart rate 2021-12-30 20:52:00 67 /min [facility] Body temperature 2021-12-30 20:26:[address] [facility] Oxygen saturation in Arterial blood by Pulse oximetry 2021-12-30 20:26:00 99 /min [facility] Respiratory rate 2021-12-30 16:21:00 18 /min [facility] Body weight 2021-12-30 08:27:00 60.464 kg [facility] BMI 2021-12-30 08:27:00 23.61 kg/m2 [facility] Body height 2021-12-29 01:29:00 160 cm [facility] Procedures Procedure Date / Time Performed Performing Clinician Source MAGNESIUM 2022-11-11 19:05:00 Hemant Klein [facility] BASIC METABOLIC PANEL (NA, K, CL, CO2, GLUCOSE, BUN, CREATININE, CA) 2022-11-11 19:05:[address] [facility] ETHANOL 2022-11-11 19:05:00 Hemant Klein [facility] CBC WITH DIFF 2022-11-11 19:05:00 Hemant Klein [facility] POCT GLUCOSE (AUTOMATED) 2022-08-11 13:36:[address] [facility] PHOSPHORUS 2022-08-11 10:35:00 [facility] MAGNESIUM 2022-08-11 10:35:00 Jessica [facility] AMMONIA, PLASMA 2022-08-11 10:35:[address] [facility] COMP. METABOLIC PANEL ([id number]) 2022-08-11 10:35[facility] 2022-08-11 10:35:[address] [facility] POCT GLUCOSE (AUTOMATED) 2022-08-11 02:15:[address] [facility] POCT GLUCOSE (AUTOMATED) 2022-08-10 23:10:[address] [facility] POCT GLUCOSE (AUTOMATED) 2022-08-10 18:20:[address] [facility] POCT GLUCOSE (AUTOMATED) 2022-08-10 14:11:00 Arvind Prado [facility] POCT GLUCOSE (AUTOMATED) 2022-08-10 10:59:[address] [facility] COVID-19 (ID NOW RAPID TESTING) 2022-08-10 07:17:[address] [facility] LAB ONLY COVID INTERPRETATION 2022-08-10 07:17:[address] [facility] HB ECG ROUTINE & RHYTHM STRIP 2022-08-10 06:03:[address] [facility] URINALYSIS 2022-08-10 05:46:00 [facility] URINE DRUG (IMMUNOASSAY) - COMPREHENSIVE DRUG SCREEN W/O REFLEX 2022-08-10 05:45:[address] [facility] CREATINE KINASE 2022-08-10 05:16:00 [facility] 2022-08-10 05:16:00 Rayray Driscoll [facility] MAGNESIUM 2022-08-10 05:16:00 Rayray Driscoll [facility] TROPONIN I 2022-08-10 05:16:00 [facility] COMP. METABOLIC PANEL ([id number]) 2022-08-10 05:16:[address] [facility] ETHANOL 2022-08-10 05:16:[address] [facility] CBC WITH DIFF 2022-08-10 05:16:00 Rayray Driscoll [facility] N-TERMINAL PRO-BNP 2022-08-10 05:16:[address] [facility] CRITICAL CARE 2022-08-10 04:52:00 Rayray Driscoll [facility] XR CHEST 1 VW 2022-04-06 14:51:50 Diya Chowdhury [facility] LIPASE 2022-04-06 14:42:00 [facility] TROP[facility] 2022-04-06 14:42:00 Diya Chowdhury Un [facility] COMP. METABOLIC PANEL ([id number]) 2022-04-06 14:42:[address] [facility] CBC WITH DIFF 2022-04-06 14:42:00 Diya Chowdhury [facility] PROTHROMBIN TIME / INR 2022-04-06 14:42:[address] [facility] ACTIVATED PARTIAL THRMPLAS NELDA 2022-04-06 14:42:[address] [facility] LACTIC ACID WHOLE BLOOD 2022-01-20 00:22:[address] [facility] URINE DRUG (IMMUNOASSAY) - COMPREHENSIVE DRUG SCREEN 2022-01-19 23:10:[address] [facility] URINALYSIS 2022-01-19 23:10:00 Leticia Baldwin [facility] TROPONIN I 2022-01-19 23:00:00 Leticia Baldwin [facility] COMP. METABOLIC PANEL ([id number]) 2022-01-19 23:00:[address] [facility] LITHIUM 2022-01-19 23:00:00 [facility] 2022-01-19 23:00:00 [facility] CBC WITH DIFF 2022-01-19 23:00:00 Leticia Baldwin [facility] COVID-19 (ID NOW RAPID TESTING) 2022-01-19 23:00:[address] [facility] CT HEAD WO CONTRAST 2022-01-19 22:49:[address] [facility] XR CHEST 1 VW 2022-01-19 22:41:00 Leticia Baldwin [facility] POCT GLUCOSE (AUTOMATED) 2022-01-19 22:25:[address] [facility] POCT GLUCOSE (AUTOMATED) 2021-12-30 21:55:[address] [facility] POCT GLUCOSE (AUTOMATED) 2021-12-30 16:21:[address] [facility] POCT GLUCOSE (AUTOMATED) 2021-12-30 12:30:[address] [facility] HEPATIC FUNCTION PANEL ([id number]) (ALB,T.PRO,BILI T,BU/BC,ALT,AST,ALK PHOS) 2021-12-30 09:28:[address] [facility] POCT GLUCOSE (AUTOMATED) 2021-12-30 02:11:[address] [facility] POCT GLUCOSE (AUTOMATED) 2021-12-29 21:41:[address] [facility] POCT GLUCOSE (AUTOMATED) 2021-12-29 16:37:[address] [facility] TRANSTHORACIC ECHO (TTE) COMPLETE W/ CONTRAST 2021-12-29 13:05:[address] [facility] POCT GLUCOSE (AUTOMATED) 2021-12-29 12:41:[address] [facility] TROPONIN I 2021-12-29 09:42:00 [place], [facility] TROPONIN I 2021-12-29 04:55:00 [facility] HEAD WO CONTRAST 2021-12-28 21:18:[address] [facility] AMMONIA, PLASMA 2021-12-28 21:00:00 Pia Renteria [facility] COVID-19 (ID NOW RAPID TESTING) 2021-12-28 20:42:[address] [facility] LAB ONLY COVID INTERPRETATION 2021-12-28 20:42:[address] [facility] URINE DRUG (IMMUNOASSAY) - COMPREHENSIVE DRUG SCREEN W/O REFLEX 2021-12-28 20:42:[address] [facility] URINALYSIS 2021-12-28 20:40:00 [facility] 2021-12-28 20:40:[address] [facility] TROPONIN I 2021-12-28 20:40:00 Pia Renteria [facility] THYROID STIMULATING HORMONE 2021-12-28 20:40:[address] [facility] COMP. METABOLIC PANEL ([id number]) 2021-12-28 20:40:[address] [facility] LIPID PANEL (68063)(TOTAL CHOLESTEROL, TRIGLYCERIDES, HDL) 2021-12-28 20:40:[address] [facility] ETHANOL 2021-12-28 20:40:00 Demetrius Langford [facility] CBC WITH DIFF 2021-12-28 20:40:00 Pia Renteria [facility] GLYCOSYLATED HEMOGLOBIN (A1C) 2021-12-28 20:40:[address] [facility] PROTHROMBIN TIME / INR 2021-12-28 20:40:[address] [facility] XR CHEST 1 VW 2021-12-28 20:16:00 Pia Renteria [facility] HB ECG ROUTINE & RHYTHM STRIP 2021-12-28 20:04:[address] [facility] Encounters Start Date/Time End Date/Time Encounter Type Admission Type Attending [facility] Care Department Encounter ID Source 2021-09-17 16:45:00 Inpatient [facility] [id number] [facility] 2020-06-06 16:07:00 Inpatient [facility] [id number] [facility] 2020-06-06 06:20:00 Inpatient [facility] [id number] [facility] 2020-06-05 19:35:00 Inpatient [facility] [id number] [facility] 2020-05-23 19:53:00 Inpatient [facility] [id number] [facility] 2020-05-23 19:53:00 Inpatient [facility] [id number] [facility] 2022-11-11 13:50:00 2022-11-11 16:07:00 Emergency X HEMANT KLEIN [facility] [id number] [facility] 2022-11-11 13:50:00 2022-11-11 16:07:00 Emergency Jessica [facility] [id number] [facility] 2022-10-14 20:59:00 2022-10-14 20:59:00 Emergency [facility] [id number] [facility] 2022-10-14 20:59:00 2022-10-14 20:59:00 Emergency Emergency ClareDeborah brotherschloe [facility] [id number] [facility] 2022-08-09 22:59:00 2022-08-11 13:02:00 Outpatient JESSICA GAINES [facility] [id number] [facility] 2022-08-09 22:59:00 2022-08-11 13:02:00 Emergency Rayray Driscoll Jelani Edionwe, [facility] [id number] [facility] 2022-04-06 09:38:00 2022-04-06 11:42:00 Emergency X DIYA CHOWDHURY [facility] ERT [id number] [facility] 2022-04-06 09:38:00 2022-04-06 11:42:00 Emergency Diya Chowdhury [facility] [id number] [facility] 2022-03-07 12:38:00 2022-03-07 12:38:00 Emergency [facility] [id number] [facility] 2022-03-07 12:38:00 2022-03-07 12:38:00 Emergency Emergency Fidel Cuellar [facility] [id number] [facility] 2022-01-19 17:18:00 2022-01-19 22:00:00 Emergency X DIRK YARBROUGH [facility] ERT [id number] [facility] 2022-01-19 17:18:00 2022-01-19 22:00:00 Emergency Leticia Baldwin Julio C [facility] [id number] [facility] 2021-12-31 00:00:00 2021-12-31 00:00:00 Transition of Care Faye Portillo [id number] [facility] 2021-12-28 14:53:00 2021-12-30 17:42:00 Inpatient X JESSICA PRADO [facility] MARGO [id number] [facility] 2021-12-28 14:53:00 2021-12-30 17:42:00 Hospital Encounter Pia Renteria Jelani [facility] [id number] [facility] 2021-09-17 16:47:00 2021-09-17 16:47:00 Emergency [facility] [id number] [facility] 2020-06-06 16:07:00 2020-06-06 16:07:00 Emergency [facility] [id number] [facility] Results Test Description Test Time Test Comments Results Resul t Comments Source ETHANOL 2022-11-11 19:45:56 ALCOHOL<10mg/dL0 11/11/2022 2:45 PM [facility]<10 [id number] Toxic>100 Depression of 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>400 [facility] 19:41:47* Test Item Value Reference Range Interpretation Comme nts MAGNESIUM (test code = 8987654329) 1.8 mg/dL 1.7-2.4 Lab Interpretation (test cod e = 32622-3) Normal [facility] WITH [id number] 19:25:26* Test Item Value Reference Range Interpretation [...] 33.9 g/dL 31.2-35.0 RDW-SD (test code = 30782-1) 46.0 fL 38.5-51.6 RDW-CV (test code = 788-0) 13.5 % 12.1-15.4 PLT (test code = 777-3) 237 See_Comment [Automated messa ge] The system which generated this result transmitted reference range: 150 - 328 10*3/?L. The reference range was not used to interpret this result as normal/abnormal. MPV (test code = 83787-3) 8.9 fL 9.8-13.0 L NRBC/100 WBC (test code = 1850143455) 0.0 See_Comment [Automated [employer] ssage] The system which generated this result transmitted reference range: 0.0 - 10.0 /100 WBCs. The reference range was not used to interpret this result as normal/abnormal. NRBC x10^3 (test code = 8953612195) See_Comment [Automated [employer] ge] The system which generated this result transmitted reference range: 10*3/?L. The reference range was not used to interpret this result as normal/abnormal. GRAN MAT (NEUT) % (test code = 770-8) 71.2 % IMM GRAN % (test code = 4758304552) 0.30 % LYMPH % (test code = 736-9) 18.2 % MONO % (test code = 5905-5) 8.4 % EOS % (test code = 713-8) 1.0 % BASO % (test code = 706-2) 0.9 % GRAN MAT x10^3(ANC) (test code = 5055166029) 4.86 10*3/uL 1.99-6.95 IMM GRAN x10^3 (test code = 1959643832) 0.00-0.06 LYMPH x10^3 (test code = 731-0) 1.24 10*3/uL 1.09-3.23 MONO x10^3 (test code = 742-7) 0.57 10*3/uL 0.36-1.02 EOS x10^3 (test code = 711-2) 0.07 10*3/uL 0.06-0.53 BASO x10^3 (test code = 704-7) 0.06 10*3/uL 0.01-0.09 Lab Interpretation (test code = 76435-8) [facility]normal [facility] Rflx Cult/Penlw9758-49-01 22:20:00* Test Item Value Reference Range Interpretation Comme nts Color,Urine (test code = UCOL) Yellow Yellow Clarity,Urine (test code = UCLAR) Clear Clear Ph, Urine (test code = UPH) 7.0 5.0-9.0 N Specific [place],Urine (test code = USG) 1.020 1.005-1.030 N [...] code = ULEU) Negative mg/dL Negative Drug Screen,Virio1315-06-36 22:20:00* Test Item Value Reference Range Interpretation [...] UPROP) Negative Negative Complete Blood Count Auto Jdwu6385-67-68 21:21:00* Test Item Value Reference Range Interpretation [...] code = NRBCP) 0 % Comprehensive Metabolic Qjhbb3516-70-86 21:21:00* Test Item Value Reference Range Interpretation [...] a race coefficient. Additional information canbe found at:[email or web address] 5.[email or web address] ([email or web address]) [Automated message] The system [...] = ALP) 134 U/L 46-116 H Ethanol Drutg7123-20-35 21:21:00* Test Item Value Reference Range Interpretation Comme nts Ethanol (test code = ETOH) < 3 mg/dL The pharmacologi yudy response to blood alcohol levels mayvary from individual to individual. The fatal concentrationhas been reported to be >400mg/dL. POCT GLUCOSE (AUTOMATED)2022-08-11 13:40:35* Test Item Value Reference Range Interpretation Comme nts POCT GLU (test code = 2944445185) 121 mg/dL 70-110 H Lab Interpretation (test cod e = 79237-7) Abnormal [facility] GLUCOSE (AUTOMATED)2022-08-11 02:18:58* Test Item Value Reference Range Interpretation Comme nts POCT GLU (test code = 6652196757) 183 mg/dL 70-110 H Lab Interpretation (test cod e = 96658-4) Abnormal [facility] GLUCOSE (AUTOMATED)2022-08-10 23:16:11* Test Item Value Reference Range Interpretation Comme nts POCT GLU (test code = 6969048899) 176 mg/dL 70-110 H Lab Interpretation (test cod e = 47304-4) Abnormal [facility] GLUCOSE (AUTOMATED)2022-08-10 18:22:51* Test Item Value Reference Range Interpretation Comme nts POCT GLU (test code = 9355179077) 165 mg/dL 70-110 H Lab Interpretation (test cod e = 53131-4) Abnormal [facility] GLUCOSE (AUTOMATED)2022-08-10 14:18:05* Test Item Value Reference Range Interpretation Comme nts POCT GLU (test code = 2126158207) 138 mg/dL 70-110 H Lab Interpretation (test cod e = 06931-7) Abnormal [facility] GLUCOSE (AUTOMATED)2022-08-10 11:01:21* Test Item Value Reference Range Interpretation Comme nts POCT GLU (test code = 2565522822) 143 mg/dL 70-110 H Lab Interpretation (test cod e = 77977-5) [facility]normal [facility]TR[facility] [id number] 06:51:18* Test Item Value Reference Range Interpretation Comme nts TROPONIN I (test code = 2067804620) 0.008 ng/mL <=0.034 JUAN ALBERTO (test code [...] of biotin. Lab Interpretation (test code = 86919-1) Normal [facility] CenterN-TERMINAL ENY-KSN8520-33-19 06:47:37* Test Item Value Reference Range Interpretation Comme nts NT-proBNP (test code = 1276450393) 37 pg/mL <=125 JUAN ALBERTO (test code = JUAN ALBERTO) Biotin has been reported to cause a negative bias, interpret results relative to patient's use of biotin. Lab Interpretation (test code = 50532-2) Normal [facility] CenterETHANOL2023-02-19 06:25:52 ALCOHOL<10mg/dL08/10/2022 12:25 AM [facility]10 Rlimkbsk82-927 Toxic>100 Depression of 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>400 F[facility]UnCu[facility] HospitalCOMP. METABOLIC PANEL (41550)2022-08-10 06:19:15* Test Item Value Reference Range Interpretation Comme nts NA (test code = 0644111679) 135 mmol/L 135-145 K (test code = 9160886402) 4.3 mmol/L 3.5-5.0 CL (test code = 0571647934) 98 mmol/L 98-108 CO2 TOTAL (test code = 6801219310) 30 mmol/L 23-31 AGAP (test code = 7546943471) 7 2-16 BUN (test code = 8781441023) 11 mg/dL 7-23 GLUCOSE (test code = 2917050572) 153 mg/dL 70-110 H CREATININE (test code = 5332751041) 0.77 mg/dL 0.60-1.25 TOTAL BILI (test code = 7999188162) 0.9 mg/dL 0.1-1.1 CALCIUM (test code = 2477854329) 10.0 mg/dL 8.6-10.6 T PROTEIN (test code = 6925038185) 7.7 g/dL 6.3-8.2 ALBUMIN (test code = 7392738019) 4.6 g/dL 3.5-5.0 ALK PHOS (test code = 6158402442) 92 U/L 34-122 ALTv (test code = 1742-6) 35 U/L 5-50 AST(SGOT) (test code = 3978321027) 42 U/L 13-40 H eGFR (test code = 4984951030) 106.1 mL/min/1.73m2 JUAN ALBERTO (test code = [...] imaging tests). Lab Interpretation (test code = 33582-8) [facility]normal [facility] CenterMAGNESIUM2023-02-19 06:19:15* Test Item Value Reference Range Interpretation Comme nts MAGNESIUM (test code = 0076227692) 2.2 mg/dL 1.7-2.4 Lab Interpretation (test cod e = 22342-8) Normal [facility] CenterLIPASE2023-02-19 06:18:55* Test Item Value Reference Range Interpretation Comme nts LIPASE (test code = 9328919693) 18 U/L 0-220 Lab Interpretation (test cod e = 17959-1) Normal [facility] CenterCREATINE XZOTPZ5758-96-88 06:18:55* Test Item Value Reference Range Interpretation Comme nts CK (test code = 8761193900) 174 U/L 33-194 Lab Interpretation (test cod e = 19393-9) Normal [facility] CenterCBC WITH [id number] 06:02:35* Test Item Value Reference Range Interpretation Comme nts WBC (test code = 6690-2) 7.50 See_Comment [Automated [facility]] The system which generated this result transmitted reference range: 4.20 - 10.70 10*3/?L. The reference range was not used to interpret this result as normal/abnormal. RBC (test code = 789-8) 4.80 See_Comment [Automated [employer]] The system which generated this result transmitted [...] 32.4 g/dL 31.2-35.0 RDW-SD (test code = 53372-0) 50.2 fL 38.5-51.6 RDW-CV (test code = 788-0) 14.3 % 12.1-15.4 PLT (test code = 777-3) 241 See_Comment [Automated messa ge] The system which generated this result transmitted reference range: 150 - 328 10*3/?L. The reference range was not used to interpret this result as normal/abnormal. MPV (test code = 94582-0) 8.6 fL 9.8-13.0 L NRBC/100 WBC (test code = 6023574069) 0.0 See_Comment [Automated [employer] ssage] The system which generated this result transmitted reference range: 0.0 - 10.0 /100 WBCs. The reference range was not used to interpret this result as normal/abnormal. NRBC x10^3 (test code = 5135311836) See_Comment [Automated messa ge] The system which generated this result transmitted reference range: 10*3/?L. The reference range was not used to interpret this result as normal/abnormal. GRAN MAT (NEUT) % (test code = 770-8) 63.9 % IMM GRAN % (test code = 8488283259) 0.50 % LYMPH % (test code = 736-9) 17.6 % MONO % (test code = 5905-5) 16.5 % EOS % (test code = 713-8) 0.7 % BASO % (test code = 706-2) 0.8 % GRAN MAT x10^3(ANC) (test code = 7378178051) 4.79 10*3/uL 1.99-6.95 IMM GRAN x10^3 (test code = 8153848849) 0.04 10*3/uL 0.00-0.06 LYMPH x10^3 (test code = 731-0) 1.32 10*3/uL 1.09-3.23 MONO x10^3 (test code = 742-7) 1.24 10*3/uL 0.36-1.02 H EOS x10^3 (test code = 711-2) 0.05 10*3/uL 0.06-0.53 L BASO x10^3 (test code = 704-7) 0.06 10*3/uL 0.01-0.09 Lab Interpretation (test code = 63755-6) Abnormal [facility] CenterTROPONIN [id number] 15:15:32* Test Item Value Reference Range Interpretation Comments TROPONIN I (test code = 3135534121) 0.007 ng/mL See_Comment [Automated message] The system [...] of biotin. Lab Interpretation (test code = 61694-5) Normal [facility] CenteraPTT2022-10-16 15:08:29* Test Item Value Reference Range Interpretation Comme [facility] APTT Patient (test code = 3173-2) See_Comment [Automated message] The system which generated this result transmitted reference range: 23 - 38 Seconds. The reference range was not used to interpret this result as normal/abnormal. JUAN ALBERTO (test code = JUAN ALBERTO) The [facility] patient population mean normal value for aPTT is 30 seconds. Lab Interpretation (test code = 19030-0) Normal [facility] CenterPROTHROMBIN TIME / [id number] 15:06:28* Test Item Value Reference Range Interpretation Comme [facility] PROTIME PATIENT (test code = 5964-2) See_Comment [Automated [employer] ge] The system which generated this result transmitted reference range: 12.0 - 14.7 Seconds. The reference range was not used to interpret this result as normal/abnormal. INR (test code = 6301-6) Normal INR <1.1; Warfarin Therapeutic range 2.0 to 3.0 or 2.5 to 3.5, depending upon the indications. Lab Interpretation (test code = 07913-0) Normal [facility] CenterCOMP. METABOLIC PANEL (92871)2022-04-06 15:03:31* Test Item Value Reference Range Interpretation Comme nts NA (test code = 0861888099) 136 mmol/L 135-145 K (test code = 7444613380) 5.0 mmol/L 3.5-5 CL (test code = 9719526628) 104 mmol/L 98-108 CO2 TOTAL (test code = 5784208811) 21 mmol/L 23-31 L AGAP (test code = 3307511368) 2-16 BUN (test code = 5998270022) 11 mg/dL 7-23 GLUCOSE (test code = 7980214018) 162 mg/dL 70-110 H CREATININE (test code = 1036550692) 0.52 mg/dL 0.6-1.25 L TOTAL BILI (test code = 5921935572) 1.0 mg/dL 0.1-1.1 CALCIUM (test code = 6871494689) 9.3 mg/dL 8.6-10.6 T PROTEIN (test code = 3997701061) 7.4 g/dL 6.3-8.2 ALBUMIN (test code = 0548017656) 4.4 g/dL 3.5-5 ALK PHOS (test code = 3272803555) 134 U/L 34-122 H ALTv (test code = 1742-6) 17 U/L 5-50 AST(SGOT) (test code = 4266202170) 38 U/L 13-40 eGFR (test code = 2617749772) mL/min/1.73m2 JUAN ALBERTO (test code = JUAN [...] imaging tests). Lab Interpretation (test code = 47492-9) Abnormal [facility] CenterLIPASE, [id number] 15:03:31* Test Item Value Reference Range Interpretation Comme nts LIPASE (test code = 0721082900) 29 U/L 0-220 Lab Interpretation (test cod e = 03565-4) Normal [facility] CenterCB WITH [id number] 14:51:49* Test Item Value Reference Range Interpretation Comme nts WBC (test code = 6690-2) See_Comment [Gen110] The system which generated this result transmitted reference range: 4.20 - 10.70 10*3/?L. The reference range was not used to interpret this result as normal/abnormal. RBC (test code = 789-8) See_Comment [Automated [facility]] The system which generated this result transmitted [...] 34.0 g/dL 31.2-35 RDW-SD (test code = 12646-7) 45.9 fL 38.5-51.6 RDW-CV (test code = 788-0) 13.3 % 12.1-15.4 PLT (test code = 777-3) See_Comment [Automated messa ge] The system which generated this result transmitted reference range: 150 - 328 10*3/?L. The reference range was not used to interpret this result as normal/abnormal. MPV (test code = 03350-0) 8.4 fL 9.8-13 L NRBC/100 WBC (test code = 3563959949) See_Comment [Automated [employer] ssage] The system which generated this result transmitted reference range: 0.0 - 10.0 /100 WBCs. The reference range was not used to interpret this result as normal/abnormal. NRBC x10^3 (test code = 9431374454) See_Comment [Automated messa ge] The system which generated this result transmitted reference range: 10*3/?L. The reference range was not used to interpret this result as normal/abnormal. GRAN MAT (NEUT) % (test code = 770-8) 63.0 % IMM GRAN % (test code = 5386574425) 0.50 % LYMPH % (test code = 736-9) 25.2 % MONO % (test code = 5905-5) 9.8 % EOS % (test code = 713-8) 0.3 % BASO % (test code = 706-2) 1.2 % GRAN MAT x10^3(ANC) (test code = 5730452268) 3.73 10*3/uL 1.99-6.95 IMM GRAN x10^3 (test code = 6330574480) 0.03 10*3/uL 0-0.06 LYMPH x10^3 (test code = 731-0) 1.49 10*3/uL 1.09-3.23 MONO x10^3 (test code = 742-7) 0.58 10*3/uL 0.36-1.02 EOS x10^3 (test code = 711-2) 0.06-0.53 L BASO x10^3 (test code = 704-7) 0.07 10*3/uL 0.01-0.09 Lab Interpretation (test code = 77585-7) [facility]normal [facility], Urinalysis Rflx Cult/Ofvrv7743-41-86 13:53:00* Test Item Value Reference Range Interpretation Comme nts Color,Urine (test code = UCOL) Yellow Yellow Clarity,Urine (test code = UCLAR) Cloudy Clear A Ph, Urine (test code = UPH) 7.5 5.0-9.0 N Specific [place],Urine (test code = USG) 1.025 1.005-1.030 N [...] = ULEU) Negative mg/dL Negative UF REFLEXDrug Screen,Ajlic3609-22-13 13:53:00* Test Item Value Reference Range Interpretation [...] UPROP) Negative Negative Complete Blood Count Auto Ozzb0766-83-80 12:58:00* Test Item Value Reference Range Interpretation [...] = NRBCP) 0 % Coronavirus PCR, COVID19 Pkvqb9313-11-17 12:58:00* Test Item Value Reference Range Interpretation Comme nts Coronavirus PCR, COVID19 Rapid (test code = SARSCOV2) Coronavirus PCR, COVID19 Rapid (test code = VJUDTFG01.1) Reference Range: Negative SARS-CoV-2 PCR Result: (test code = SARS-CoV-2 PCR Result:) Negative by RT-PCR COVID-19 Status: AsymptomaticComprehensive Metabolic Pfstx4175-79-88 12:58:00* Test Item Value Reference Range Interpretation [...] = ALP) 144 U/L 46-116 H Ethanol Ncink6108-97-67 12:58:00* Test Item Value Reference Range Interpretation Comme nts Ethanol (test code = ETOH) < 3 mg/dL The pharmacologi yudy response to blood alcohol levels mayvary from individual to individual. The fatal concentrationhas been reported to be >400mg/dL. FXUWRKM8274-21-25 01:47:56* Test Item Value Reference Range Interpretation Comme nts [place] (test code = 2648055969) 0.7 mmol/L 0.6-1.2 JUAN ALBERTO (test code = JUAN ALBERTO) Toxic Range: ? Greater than 1.2 mmol/L Lab Interpretation (test code = 83072-6) Normal [facility] CenterTROPONIN [id number] 00:26:53* Test Item Value Reference Range Interpretation Comments TROPONIN I (test code = 1155576737) 0.002 ng/mL See_Comment [Automated message] The system [...] of biotin. Lab Interpretation (test code = 84079-7) Normal [facility] CenterETHANOL2022-08-01 00:18:52 ALCOHOL<10mg/dL01/19/2022 7:18 PM [facility]<10 Asjeifah98-534 Toxic>100 Depression of 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>400 Fatalities ReportedSt. [facility]'s [facility] CenterCOMP. METABOLIC PANEL (00117)2022-01-20 00:16:16* Test Item Value Reference Range Interpretation Comme nts NA (test code = 6233813409) 137 mmol/L 135-145 K (test code = 8184666625) 4.5 mmol/L 3.5-5 CL (test code = 6211174118) 103 mmol/L 98-108 CO2 TOTAL (test code = 6196270406) 26 mmol/L 23-31 AGAP (test code = 9217905829) 2-16 BUN (test code = 1059143962) 10 mg/dL 7-23 GLUCOSE (test code = 4150442509) 121 mg/dL 70-110 H CREATININE (test code = 0989469766) 0.65 mg/dL 0.6-1.25 TOTAL BILI (test code = 9903361811) 0.8 mg/dL 0.1-1.1 CALCIUM (test code = 4558577066) 11.4 mg/dL 8.6-10.6 H T PROTEIN (test code = 9373716962) 7.2 g/dL 6.3-8.2 ALBUMIN (test code = 7406699834) 4.6 g/dL 3.5-5 ALK PHOS (test code = 9048164035) 112 U/L 34-122 ALTv (test code = 1742-6) 19 U/L 5-50 AST(SGOT) (test code = 1146424652) 26 U/L 13-40 eGFR (test code = 8550148121) mL/min/1.73m2 JUAN ALBERTO (test code = JUAN [...] imaging tests). Lab Interpretation (test code = 97398-5) Abnormal [facility] WITH [id number] 23:43:54* Test Item Value Reference Range Interpretation Comme nts WBC (test code = 6690-2) See_Comment [Automated [facility]] The system which generated this result transmitted reference range: 4.20 - 10.70 10*3/?L. The reference range was not used to interpret this result as normal/abnormal. RBC (test code = 789-8) See_Comment [Gen110] The system which generated this result transmitted [...] 34.4 g/dL 31.2-35 RDW-SD (test code = 11351-9) 44.0 fL 38.5-51.6 RDW-CV (test code = 788-0) 12.6 % 12.1-15.4 PLT (test code = 777-3) See_Comment [Automated messa ge] The system which generated this result transmitted reference range: 150 - 328 10*3/?L. The reference range was not used to interpret this result as normal/abnormal. MPV (test code = 23672-7) 9.1 fL 9.8-13 L NRBC/100 WBC (test code = 4645364439) See_Comment [Automated me ssage] The system which generated this result transmitted reference range: 0.0 - 10.0 /100 WBCs. The reference range was not used to interpret this result as normal/abnormal. NRBC x10^3 (test code = 9122839922) See_Comment [Automated messa ge] The system which generated this result transmitted reference range: 10*3/?L. The reference range was not used to interpret this result as normal/abnormal. GRAN MAT (NEUT) % (test code = 770-8) 69.8 % IMM GRAN % (test code = 1221409656) 0.40 % LYMPH % (test code = 736-9) 18.0 % MONO % (test code = 5905-5) 10.9 % EOS % (test code = 713-8) 0.1 % BASO % (test code = 706-2) 0.8 % GRAN MAT x10^3(ANC) (test code = 3224920832) 5.58 10*3/uL 1.99-6.95 IMM GRAN x10^3 (test code = 3202998394) 0.03 10*3/uL 0-0.06 LYMPH x10^3 (test code = 731-0) 1.44 10*3/uL 1.09-3.23 MONO x10^3 (test code = 742-7) 0.87 10*3/uL 0.36-1.02 EOS x10^3 (test code = 711-2) 0.06-0.53 L BASO x10^3 (test code = 704-7) 0.06 10*3/uL 0.01-0.09 Lab Interpretation (test code = 68341-7) Abnormal [facility] GLUCOSE (AUTOMATED)2022-01-19 22:27:41* Test Item Value Reference Range Interpretation Comme nts POCT GLU (test code = 3216440563) 123 mg/dL 70-110 H Lab Interpretation (test cod e = 67241-6) Abnormal [facility] GLUCOSE (AUTOMATED)2021-12-30 22:08:16* Test Item Value Reference Range Interpretation Comme nts POCT GLU (test code = 5289405677) 167 mg/dL 70-110 H Lab Interpretation (test cod e = 60466-2) Abnormal [facility] GLUCOSE (AUTOMATED)2021-12-30 16:50:40* Test Item Value Reference Range Interpretation Comme nts POCT GLU (test code = 3914951769) 154 mg/dL 70-110 H Lab Interpretation (test cod e = 95200-3) Abnormal [facility] GLUCOSE (AUTOMATED)2021-12-30 12:38:43* Test Item Value Reference Range Interpretation Comme nts POCT GLU (test code = 8129856700) 164 mg/dL 70-110 H Lab Interpretation (test cod e = 03362-0) Abnormal [facility] GLUCOSE (AUTOMATED)2021-12-30 02:14:58* Test Item Value Reference Range Interpretation Comme nts POCT GLU (test code = 6310466060) 220 mg/dL 70-110 H Lab Interpretation (test cod e = 05655-5) Abnormal [facility] GLUCOSE (AUTOMATED)2021-12-29 21:50:02* Test Item Value Reference Range Interpretation Comme nts POCT GLU (test code = 5188695174) 191 mg/dL 70-110 H Lab Interpretation (test cod e = 31048-8) Abnormal [facility] GLUCOSE (AUTOMATED)2021-12-29 20:15:01* Test Item Value Reference Range Interpretation Comme nts POCT GLU (test code = 6797710388) 163 mg/dL 70-110 H Lab Interpretation (test cod e = 34689-4) [facility]normal [facility] CenterTransthoracic echo (TTE)2021-12-29 19:12:22* Test Item Value Reference Range Interpretation Comme nts Height (test code = 8379848235) in Weight (test code = 6684133840) lbs Systolic BP (test code = 8757859504) mmHg Diastolic BP (test code = 5565960521) mmHg Heart Rate (test code = 6566913891) bpm BSA (test code = 4047431108) 1.62 m2 Ao root annulus (test code = 4801581401) 2.45 cm Ao root diam (test code = 7463283186) 2.45 cm Aortic root (test code = 0838150440) 2.45 cm ACS (test code = 7392215659) 1.66 cm LA size (test code = 0125498689) 3.2 cm LVOT diameter (test code = 3716268546) 1.95 cm LVIDD (test code = 2518521824) 3.60 cm IVS (test code = 8080496288) 0.94 cm Interventricular Septum Diastolic Thickness by 2D (test code = 0558686) 0.94 cm LVPWD (test code = 9696593698) 0.80 cm PW (test code = 2549671950) 0.80 cm 0.6-1.1 EF(Teich) (test code = 7957950970) 52.80 % LVIDS (test code = 4880263256) 2.60 cm FS (test code = 1302060688) 27 % EF - 2D (test code = 50514830) 52.80 % LAV(MOD-sp4) (test code = 9698876248) 16.80 mL MV Peak E Jovany (test code = 4374937865) 46.1 cm/s E wave decelartion time (test code = 4956560137) 0.31 s MV Peak A Jovany (test code = 1148010278) 58.1 cm/s E/A ratio (test code = 7648629295) ratio MV E/e' septal (test code = 3500684947) 5.7 cm/s Tapse (test code = 2301159847) 1.60 cm LVOT stroke volume (test code = 7589909991) 52.10 cm3 LVOT peak jovany (test code = 5762374734) 110.6 cm/s LVOT mn grad (test code = 8201828133) mmHg AV LVOT peak gradient (test code = 4699136990) mmHg LVOT peak VTI (test code = 5170466709) 17.4 cm LV V1 mean (test code = 5451225508) 66.10 cm/s Aortic valve mean velocity (test code = 2434907311) 73.0 cm/s Ao peak jovany (test code = 5369694942) 124.6 cm/s Ao VTI (test code = 4352615322) 18.6 cm AV area by cont VTI (test code = 0555260609) 2.8 cm2 AV area peak jovany (test code = 8544618761) 2.7 cm2 Ao max PG (test code = 6066492385) 6.20 mm[Hg] AV peak gradient (test code = 0938824861) mmHg AV valve area (test code = 7435732642) 2.80 cm2 AV mean gradient (test code = 7294360416) mmHg Radiology Study observation (narrative) (test code = 84713-5) JUAN ALBERTO (test code = JUAN ALBERTO) [...] mL of Lumason ultrasound enhancing [facility]. [facility]29 12:50:31* Test Item Value Reference Range Interpretation Comme nts POCT GLU (test code = 1330774516) 141 mg/dL 70-110 H Lab Interpretation (test cod e = 09146-0) [facility]normal [facility] CenterTroponin [id number] 10:38:31* Test Item Value Reference Range Interpretation Comments TROPONIN I (test code = 8134009522) 0.003 ng/mL See_Comment [Automated message] The system [...] of biotin. Lab Interpretation (test code = 27593-9) Normal [facility] CenterLIPID PANEL (75014)(TOTAL CHOLESTEROL, TRIGLYCERIDES, HDL)2021-12-29 05:56:47* Test Item Value Reference Range Interpretation Comme nts CHOL (test code = 1950260837) 168 mg/dL 120-200 HDL (test code = 8005344088) 102 mg/dL See_Comment [Automated [employer]] The system which generated this result transmitted reference range: >=40. The reference range was not used to interpret this result as normal/abnormal. HDLC RATIO (test code = 4373007353) See_Comment [Automated [employer] ge] The system which generated this result transmitted reference range: <=5.0. The reference range was not used to interpret this result as normal/abnormal. TRIG (test code = 3268847686) 55 mg/dL 30-170 LDL CHOL (test code = 63969-9) 55 mg/dL See_Comment [Automated [employer] ge] The system which generated this result transmitted reference range: <=160. The reference range was not used to interpret this result as normal/abnormal. VLDL (test code = 7749441123) 11 mg/dL 5-60 Lab Interpretation (test code = 60987-3) Normal [facility] CenterThyroid Stimulating Hormone (TSH)2021-12-29 05:40:29* Test Item Value Reference Range Interpretation Comme nts TSH (test code = 8705805690) See_Comment Biotin has been reported to cause a negative bias, interpret results relative to patient's use of biotin. [Automated message] The system which generated this result transmitted reference range: 0.45 - 4.70 mIU/L. The reference range was not used to interpret this result as normal/abnormal. Lab Interpretation (test code = 45590-5) Normal [facility] CenterTroponin [id number] 05:34:29* Test Item Value Reference Range Interpretation Comments TROPONIN I (test code = 4171872334) 0.006 ng/mL See_Comment [Automated message] The system [...] of biotin. Lab Interpretation (test code = 58597-8) Normal [facility]ETHANOL2022-[facility] 04:43:01 ALCOHOL<10mg/dL12/28/2021 11:43 PM [facility] Greater than or equal to 80 mg/dL. NOTE: Whole blood values are approximately 10% to 15% lower than serum and plasma.[facility] Glycosylated Hemoglobin (A1C)2021-12-29 01:51:44* Test Item Value Reference Range Interpretation Comme nts HGB A1C (test code = 4548-4) 6.5 % 4-5.7 H JUAN ALBERTO (test code = JUAN ALBERTO) Reference RangesNormal: <5.7%Prediabetes: 5.7 - 6.4%Diabetes: > 6.5% Lab Interpretation (test code = 41867-1) [facility]normal [facility] [id number] 21:26:50* Test Item Value Reference Range Interpretation Comments TROPONIN I (test code = 0993543528) 0.002 ng/mL See_Comment [Automated message] The system [...] of biotin. Lab Interpretation (test code = 82578-4) Normal [facility]AL [id number] 21:23:29* Test Item Value Reference Range Interpretation Comme nts NT-proBNP (test code = 9992729268) 41 pg/mL See_Comment [Automated message] The system which generated this result transmitted reference range: <=125. The reference range was not used to interpret this result as normal/abnormal. JUAN ALBERTO (test code = JUAN ALBERTO) Biotin has been reported to cause a negative bias, interpret results relative to patient's use of biotin. Lab Interpretation (test code = 98819-9) Normal [facility] CenterAMMONIA, [id number] 21:20:38* Test Item Value Reference Range Interpretation Comme nts AMMONIA (test code = 7277535094) 9-33 L Slight hemolysis Lab Interpretation (test code = 27536-3) Abnormal [facility] CenterCOMP. METABOLIC PANEL (35284)2021-12-28 21:08:48* Test Item Value Reference Range Interpretation Comme nts NA (test code = 2757064502) 137 mmol/L 135-145 K (test code = 9273612557) 4.5 mmol/L 3.5-5 CL (test code = 5117207054) 97 mmol/L 98-108 L CO2 TOTAL (test code = 9613290381) 29 mmol/L 23-31 AGAP (test code = 5515351807) 2-16 BUN (test code = 5955963608) 10 mg/dL 7-23 GLUCOSE (test code = 3528717405) 188 mg/dL 70-110 H CREATININE (test code = 0779035713) 0.58 mg/dL 0.6-1.25 L TOTAL BILI (test code = 9319715560) 0.8 mg/dL 0.1-1.1 CALCIUM (test code = 5469043398) 10.5 mg/dL 8.6-10.6 T PROTEIN (test code = 4897966311) 7.6 g/dL 6.3-8.2 ALBUMIN (test code = 2075154887) 4.5 g/dL 3.5-5 ALK PHOS (test code = 4520656809) 107 U/L 34-122 ALTv (test code = 1742-6) 66 U/L 5-50 H AST(SGOT) (test code = 2799405993) 96 U/L 13-40 H eGFR (test code = 3036327217) mL/min/1.73m2 JUAN ALBERTO (test code = JUAN [...] imaging tests). Lab Interpretation (test code = 64475-0) Abnormal [facility] CenterPROTHROMBIN TIME / [id number] 21:01:25* Test Item Value Reference Range Interpretation Comme nts PROTIME PATIENT (test code = 5964-2) See_Comment [Automated [employer]] The system which generated this result transmitted reference range: 12.0 - 14.7 Seconds. The reference range was not used to interpret this result as normal/abnormal. INR (test code = 6301-6) Normal INR <1.1; Warfarin Therapeutic range 2.0 to 3.0 or 2.5 to 3.5, depending upon the indications. Lab Interpretation (test code = 23864-5) Normal [facility] CenterCBC WITH [id number] 20:54:03* Test Item Value Reference Range Interpretation Comme nts WBC (test code = 6690-2) See_Comment [Automated [employer]] The system which generated this result transmitted reference range: 4.20 - 10.70 10*3/?L. The reference range was not used to interpret this result as normal/abnormal. RBC (test code = 789-8) See_Comment [Automated [employer]] The system which generated this result transmitted [...] 34.2 g/dL 31.2-35 RDW-SD (test code = 27557-5) 47.8 fL 38.5-51.6 RDW-CV (test code = 788-0) 13.3 % 12.1-15.4 PLT (test code = 777-3) See_Comment [Automated [employer] ge] The system which generated this result transmitted reference range: 150 - 328 10*3/?L. The reference range was not used to interpret this result as normal/abnormal. MPV (test code = 40807-9) 8.6 fL 9.8-13 L NRBC/100 WBC (test code = 7098497245) See_Comment [Automated [employer] ssage] The system which generated this result transmitted reference range: 0.0 - 10.0 /100 WBCs. The reference range was not used to interpret this result as normal/abnormal. NRBC x10^3 (test code = 0012872009) See_Comment [Automated [employer] ge] The system which generated this result transmitted reference range: 10*3/?L. The reference range was not used to interpret this result as normal/abnormal. GRAN MAT (NEUT) % (test code = 770-8) 64.1 % IMM GRAN % (test code = 1692134143) 0.40 % LYMPH % (test code = 736-9) 16.6 % MONO % (test code = 5905-5) 17.2 % EOS % (test code = 713-8) 0.2 % BASO % (test code = 706-2) 1.5 % GRAN MAT x10^3(ANC) (test code = 5737275144) 3.47 10*3/uL 1.99-6.95 IMM GRAN x10^3 (test code = 0456899218) 0-0.06 LYMPH x10^3 (test code = 731-0) 0.90 10*3/uL 1.09-3.23 L MONO x10^3 (test code = 742-7) 0.93 10*3/uL 0.36-1.02 EOS x10^3 (test code = 711-2) 0.06-0.53 L BASO x10^3 (test code = 704-7) 0.08 10*3/uL 0.01-0.09 Lab Interpretation (test code = 19832-7) Abnormal [facility] CenterEthanol [id number] 21:08:00* Test Item Value Reference Range Interpretation Comme nts Ethanol (test code = ETOH) < 3 mg/dL The pharmacologi yudy response to blood alcohol levels mayvary from individual to individual. The fatal concentrationhas been reported to be >400mg/dL. Complete Blood Count Auto [id number] 17:33:00* Test Item Value Reference Range Interpretation [...] = NRBCP) 0 % UA, Urinalysis Rflx Cult/[id number] 17:33:00* Test Item Value Reference Range Interpretation Comme nts Color,Urine (test code = UCOL) Dark Yellow Yellow A Clarity,Urine (test code = UCLAR) Clear Clear Ph, Urine (test code = UPH) 6.5 5.0-9.0 N Specific [place],Urine (test code = USG) 1.015 1.005-1.030 N [...] = ULEU) Trace mg/dL Negative A Urine [id number] 17:33:00* Test Item Value Reference Range Interpretation Comme nts RBC,Urine (test code = URBCUF) None Seen /HPF 0-2 WBC,Urine (test code = UWBCUF) 0-5 /HPF 0-5 Epithelial Cell,Urine (test code = UECUF) 0-5 /HPF 0-5 Casts,Urine (test code = UCASTUF) None Seen /LPF None Seen Bacteria,Urine (test code = UBACTUF) None Seen /hpf None Seen Drug Screen,[id number] 17:33:00* Test Item Value Reference Range Interpretation [...] code = UPROP) Negative Negative Comprehensive Metabolic [id number] 17:33:00* Test Item Value Reference Range Interpretation [...] 101 U/L 46-116 N Sars-CoV-2/FLU A/B RSV [id number] 17:31:00* Test Item Value Reference Range Interpretation [...] SARS-CoV-2 PCR Result:) Negative by RT-PCR Drug Screen,[id number] 17:20:00* Test Item Value Reference Range Interpretation [...] UPROP) Negative Negative Complete Blood Count Auto [id number] 17:14:00* Test Item Value Reference Range Interpretation [...] code = NRBCP) 0 % Comprehensive Metabolic [id number] 17:14:00* Test Item Value Reference Range Interpretation [...] = ALP) 207 U/L 46-116 H Ethanol [id number] 17:14:00* Test Item Value Reference Range Interpretation Comme nts Ethanol (test code = ETOH) 192 mg/dL Complete Blood Count Auto [id number] 20:20:00* Test Item Value Reference Range Interpretation [...] code = NRBCP) 0 % Comprehensive Metabolic [id number] 20:20:00* Test Item Value Reference Range Interpretation [...] = ALP) 189 U/L 46-116 H Ethanol [id number] 20:20:00* Test Item Value Reference Range Interpretation Comme nts Ethanol (test code = ETOH) 10 mg/dL Sars-CoV-2/FLU A/B RSV [id number] 20:20:00* Test Item Value Reference Range Interpretation [...] Negative by Nucleic Acid Amplification UA, Urinalysis [id number] 20:20:00* Test Item Value Reference Range Interpretation Comme nts Color,Urine (test code = UCOL) Yellow Y Clarity,Urine (test code = UCLAR) Clear Clear PH,Urine (test code = UPH.XX) 7.0 5.5-8.5 Specific [place],Urine (test code = USG) 1.020 1.005-1.030 N [...] code = ULEU) Negative cells/uL Negative Drug Screen,[id number] 20:20:00* Test Item Value Reference Range Interpretation [...] RESULT TO MICHAELA TRACY CT head/brain wo [facility] [address] [place] [address] Patient Name: Walt Velazquez Medical Record#: [id number] Address: Homeless City/State/Zip: [place] [address]: Vinnie Navarro MD Phone: Insurance: Self Pay /Age/Sex: 1970/50/M Admit/Reg Date: 09/17/[address]: Vinnie Navarro MD Location: [facility]/ PCP: Md KERWIN Flores Date of Service: 09/17/21 Order (s): CT head/brain wo con CPT Code: 15174 Report Number: [id number] Reason for Exam: Altered mental status Location [...] Karen Jay MD 09/17/2021 6:42 PM CDTWorkstation: [id number] Dictated By: Karen Sanders MD 09/17/211824 Signed By: Karen Sanders MD 09/17/211824 TD/TT: 09/17/211824 Tech: ES135 cc: JOSEE; GENESIS* Vinnie Navarro MD; Pcp-Md KERWIN Stiles"
--- NOTE | 2023-08-27 22:44 | ER ---
Nurse's Notes [facility] Name: Walt Velazquez Age: 52 yrs Sex: Male : 1970 Arrival Date: 08/27/2023 Time: 18:39 Bed 12 Private MD: Diagnosis: Alcohol abuse;Alcohol dependence with intoxication Presentation: 08/26 18:52 Chief complaint: Patient states: Pt presents to the ED via [facility] for unknown kd3 amount of ETOH consumption. PT is independently ambulatory to the restroom and to the exam room. Pt provided a warm blanket for comfort. Coronavirus screen: Vaccine status: unknown. Ebola Screen: No symptoms or risks identified at this time. Initial Sepsis Screen: Does the patient meet any 2 criteria? No. Patient's initial sepsis screen is negative. Does the patient have a suspected source of infection? No. Patient's initial sepsis screen is negative. Risk Assessment: Do you want to hurt yourself or someone else? Patient reports no desire to harm self or others. Onset of symptoms was August 27, 2023. 18:52 Method Of Arrival: EMS: [facility] kd3 18:52 Acuity: LATASHA 4 kd3 Triage Assessment: 18:53 General: Appears in no apparent distress. Behavior is calm, cooperative. Pain: Denies kd3 pain. Neuro: Level of Consciousness is awake, alert, obeys commands, Intoxicated . Historical: - Allergies: 18:53 Trazodone; kd3 - PMHx: 18:53 Alcoholism; Bipolar II; Hypertensive disorder; Hypertensive disorder; Parkinsons; kd3 Seizure; - Immunization history:: Adult Immunizations up to date. - Social history:: Smoking status: unknown. Screenin:11 Abuse screen: Denies threats or abuse. Denies injuries from another. Nutritional ha1 screening: No deficits noted. Tuberculosis screening: No symptoms or risk factors identified. 22:46 [facility] ED Fall Risk Assessment (Adult). cm10 Assessment: 19:15 General: Appears comfortable, Behavior is calm, cooperative. Pain: Denies pain. Neuro: ha1 Level of Consciousness is awake, alert, obeys commands, Oriented to person, place, time, situation. Cardiovascular: Capillary refill < 3 seconds Patient's skin is warm and dry. Respiratory: Airway is patent Respiratory effort is even, unlabored, Respiratory pattern is regular, symmetrical. GI: No signs and/or symptoms were reported involving the gastrointestinal system. : No signs and/or symptoms were reported regarding the genitourinary system. Derm: Skin is pink, warm \T\ dry. Musculoskeletal: Circulation, motion, and sensation intact. Range of motion: intact in all extremities. 20:13 Reassessment: Patient and/or family updated on plan of care and expected duration. Pain ha1 level reassessed. Patient is alert, oriented x 3, equal unlabored respirations, skin warm/dry/pink. 21:00 Respiratory: Airway is patent Respiratory effort is even, unlabored, Respiratory ha1 pattern is regular, symmetrical. 21:00 Reassessment: eyes closed. ha1 22:00 Reassessment: eyes closed. Respiratory: Airway is patent Respiratory effort is even, ha1 unlabored, Respiratory pattern is regular, symmetrical. 22:44 Reassessment: Pt removed his IV and stated that he needed to leave. Pt provided with cm10 AMA form. AMA form signed. Pt leaving A\T\Ox4. Vital Signs: 19:03 BP 131 / 96; Pulse 102; Resp 16; Temp 97.9(TE); Pulse Ox 100% ; kd3 20:00 BP 105 / 72; Pulse 82; Resp 17; Pulse Ox 100% on R/A; ha1 21:00 BP 101 / 69; Pulse 79; Resp 17 S; Pulse Ox 100% on R/A; ha1 ED Course: 18:41 Patient arrived in ED. mg5 18:45 Jovanny Wen DO is Attending Physician. ms3 18:48 Patient has correct armband on for positive identification. Placed in gown. Bed in low ha1 position. Call light in reach. Side rails up X 1. 18:53 Triage completed. kd3 18:53 Arm band placed on. kd3 19:05 Door closed. Noise minimized. Lights dimmed. Warm blanket given. Pillow given. ha1 20:11 Mary Brown RN is Primary Nurse. ha1 20:23 Attending Physician role handed off by Jovanny Wen DO ms3 20:23 Jules Lucero MD is Attending Physician. ms3 21:14 Provided Education on: alcohol withdrawal symptoms. and Alcoholic Anonymous . ha1 22:43 Hernan Wilkes DO is Referral Physician. sp4 22:44 No provider procedures requiring assistance completed. IV discontinued, intact, cm10 bleeding controlled, No redness/swelling at site. Pressure dressing applied. Administered Medications: 18:59 Drug: Centrum - Multivitamins PO 1 tab-caps PO once Route: PO; kd3 22:20 Follow up: Response: No adverse reaction cm10 Medication: 21:12 VIS not applicable for this client. ha1 Outcome: 22:43 Discharge ordered by MD. sp4 22:44 Discharged to home ambulatory, cm10 22:44 Condition: good 22:44 Discharge instructions given to Pt left prior to receiving discharge paperwork. 22:46 Patient left the ED. cm10 Signatures: Jovanny Wen DO DO ms3 Tamara Ellsworth RN RN kd3 Mary Brown RN RN ha1 Jules Lucero MD MD sp4 Michelle Mortensen RN RN cm10 Farzana Macdonald mg5 Corrections: (The following items were deleted from the chart) 21:10 21:07 Reassessment: eyes closed ha1 ha1 21:10 21:07 Respiratory: Airway is patent Respiratory effort is even, unlabored, Respiratory ha1 pattern is regular, symmetrical, ha1 21:17 21:14 Provided Education on: alcohol withdrawal . ha1 ha1
--- NOTE | 2023-08-27 22:44 | EDPHYS ---
Physician Documentation [facility] Name: Walt Velazquez Age: 52 yrs Sex: Male : 1970 Arrival Date: 08/27/2023 Time: 18:39 Bed 12 Private MD: ED Physician Jules Lucero HPI: 08/26 18:57 This 52 yrs old Male presents to ER via EMS with complaints of Alcohol ms3 intoxication. 18:57 52-year-old male with past medical history of alcoholism, bipolar, hypertension, ms3 Parkinson's, seizures presents to the emergency department via [facility] after he was found sleeping by a tree. Patient states he is in alcoholic and cannot remember how many drinks he drank today. Patient denies pain. Patient denies any alleviating or inciting factors. Historical: - Allergies: 18:53 Trazodone; kd3 - PMHx: 18:53 Alcoholism; Bipolar II; Hypertensive disorder; Hypertensive disorder; Parkinsons; kd3 Seizure; - Immunization history:: Adult Immunizations up to date. - Social history:: Smoking status: unknown. ROS: 18:57 Constitutional: Negative for fever, and chills. Neck: Negative for injury, pain, and ms3 swelling, Cardiovascular: Negative for chest pain, and palpitations. Respiratory: Negative for shortness of breath, cough, wheezing, and pleuritic chest pain, Abdomen/GI: Negative for abdominal pain, nausea, vomiting, diarrhea, and constipation, MS/Extremity: Negative for injury and deformity, Skin: Negative for injury, rash, and discoloration, Exam: 18:57 Constitutional: This is a well developed, well nourished patient who is awake, alert, ms3 and in no acute distress. Head/Face: Normocephalic, atraumatic. Neck: Trachea midline, no cervical lymphadenopathy. Supple, full range of motion without nuchal rigidity, or vertebral point tenderness. No Meningismus. Chest/axilla: Normal chest wall appearance and motion. Nontender with no deformity. Cardiovascular: Regular rate and rhythm with a normal S1 and S2. No gallops, murmurs, or rubs. Normal PMI, no JVD. No pulse deficits. Respiratory: Lungs have equal breath sounds bilaterally, clear to auscultation and percussion. No rales, rhonchi or wheezes noted. No increased work of breathing, no retractions or nasal flaring. Abdomen/GI: Soft, non-tender, with normal bowel sounds. No distension or tympany. No guarding or rebound. No evidence of tenderness throughout. Skin: Warm, dry with normal turgor. Normal color with no rashes, no lesions, and no evidence of cellulitis. 18:57 ENT: Dental exam: Diffuse poor dentition, Vital Signs: 19:03 BP 131 / 96; Pulse 102; Resp 16; Temp 97.9(TE); Pulse Ox 100% ; kd3 20:00 BP 105 / 72; Pulse 82; Resp 17; Pulse Ox 100% on R/A; ha1 21:00 BP 101 / 69; Pulse 79; Resp 17 S; Pulse Ox 100% on R/A; ha1 MDM: 18:52 Patient medically screened. ms3 20:16 Transition of care: After a detail discussion of the patient's case, care is ms3 transferred to Jules Lucero MD. 22:10 Differential Diagnosis: Alcohol intoxication . Data reviewed: vital signs, nurses sp4 notes. ED course: Patient remains somewhat intoxicated will check alcohol level. 08/26 22:10 Order name: Alcohol Level sp4 Administered Medications: 18:59 Drug: Centrum - Multivitamins PO 1 tab-caps PO once Route: PO; kd3 22:20 Follow up: Response: No adverse reaction cm10 Disposition Summary: 08/27/23 22:43 Discharge Ordered Notes: Location: Home sp4 Problem: new sp4 Symptoms: have improved sp4 Condition: Stable sp4 Diagnosis - Alcohol abuse sp4 - Alcohol dependence with intoxication sp4 Followup: ms3 - With: Hernan Wilkes DO - When: 2 - 3 days - Reason: Recheck today's complaints Discharge Instructions: - Discharge Summary Sheet ms3 - Alcohol Intoxication ms3 Forms: - Patient Portal Instructions sp4 Signatures: Dispatcher [employer] EDMS Jovanny Wen DO DO ms3 Tamara Ellsworth, RN RN kd3 Jules Lucero MD MD sp4 Michelle Mortensen RN cm10
[2023-08-27 23:57] VITALS: BP 101/69; TEMP 97.9; O2SAT 100
== END ==
LOC: ER 18:39
DX: F10.229 Alcohol dependence with intoxication, unspecified (principal)
CPT/HCPCS: 36415; 82077; 99284

== ENCOUNTER → 2023-09-16 | Emergency (ER) | payer SELFPAY ==
--- OUTSIDE RECORDS SUMMARY | 2023-09-16 09:28 | XMS REPORT | Continuity of Care Document ---
Author Name Unknown Address [address] [facility] [place] [address] [facility] Address [address] [facility] [place] [address] Care Team Providers Care Eye Physician Name Role Phone Pcp-None Primary Care Physician Unavailab HEMANT Adame Attending Clinician Unavailable Hemant Klein MD Attending Clinician [phone] Pan Pinto Attending Clinician Unavailab JESSICA Gallardo Attending Clinician Unavailable Rayray Driscoll MD Attending Clinician [phone] Jessica Prado MD Attending Clinician [phone] Oswald Murphy MD Attending Clinician [phone] DIYA CHOWDHURY Attending Clinician Unavailab Diya Mackey DO Attending Clinician [phone] Fidel Cuellar Attending Clinician Unavailable DIRK YARBROUGH Attending Clinician Unavailable Leticia Rowland Attending Clinician [phone] Dirk Yarbrough MD Attending Clinician [phone] Faye Portillo LVN Attending Clinician [phone] Pia Reddy Attending Clinician [phone] Vinnie Navarro Attending Clinician Unavailable OSWALD MURPHY Admitting Clinician Unavailable Oswald Murphy MD Admitting Clinician [phone] DIYA CHOWDHURY Admitting Clinician UnavailLeticia Gaytan Admitting Clinician Unavailable JESSICA PRADO Admitting Clinician Unavailable Jesisca Prado MD Admitting Clinician Payers Payer Name Policy Type Policy Number Effective Date Expirati on Date Source [facility] [id number] 2022 00:00:00 Problems Condition Name Condition Details Condition Category Status Onset Date Resolution Date Last Treatment Date Treating Clinician Comments Source Alcohol withdrawal syndrome with complicati on Alcohol withdrawal syndrome with complicati on Disease Active 08-10 00:00: 00 [facility] Type 2 diabetes mellitus with other specified complicati on Type 2 diabetes mellitus with other specified complicati on Disease Active 12-29 00:00: 00 [facility] Dyslipidem ia Dyslipidem ia Disease Active 12-29 00:00: 00 [facility] Chest pain, unspecifie d type Chest pain, unspecifie d type Disease Active 12-28 00:00: 00 [facility] Priapism Priapism Disease Active 2013-06 1-06 00:00: 00 [facility] Allergies, Adverse Reactions, Alerts Allergy Name Allergy Type Status Severity Reaction(s) Onset Date Inactive Date Treating Clinician Comments Source No Known Drug Allergie s DA Active U 4-25 00:00: 00 [facility] No Known Drug Allergie s DA Active U 0 9-16 00:00: 00 [facility] No Known Drug Allergie s DA Active U 0 3-29 00:00: 00 [facility] No Known Drug Allergie s DA Active U 2019-06 2-16 00:00: 00 [facility] No Known Drug Allergie s DA Active U 2019-06 2-15 00:00: 00 [facility] No Known Drug Allergie s DA Active U 2019-06 2-02 00:00: 00 [facility] Trazodon e Propensi ty to adverse reaction s Active Other - See comments 10-06 00:00: 00 [facility] TRAZODON E DRUG INGREDI Active Other-Cmnt 10-06 00:00: 00 [facility] Social History Social Habit Start Date Stop Date Quantity Comments Source History of tobacco use Cigarette Smoker [facility] Exposure to SARS-CoV-2 (event) 2022-11-01 00:00:00 2022-11-11 13:57:00 Not sure [facility] Tobacco use and exposure 2022-08-10 00:00:00 2022-08-10 00:00:00 User of smokeless tobacco [facility] Alcohol intake 2022-08-10 00:00:00 2022-08-10 00:00:00 Current drinker of alcohol (finding) [facility] Tobacco Comment 2022-08-10 00:00:00 2022-08-10 00:00:00 1/2 a pack a day [facility] Sex Ass[birth year] At 1970 00:00:00 1970 00:00:00 [facility] Smoking Status Start Date Stop Date Source Smokes tobacco daily 2022-08-10 00:00:00 [facility] Medications Ordered Medication Name Filled Medication Name Start Date Stop Date Current Medication? Ordering Clinician Indication Dosage Frequency Signature (SIG) Comments Components Source NaCl 0.9% (NS) bolus infusion 1,000 mL 11-11 19:45: 00 11-11 20:23 :00 No 1000mL at 999 mL/hr, 1,000 mL, IV Piggyback, ONCE, 1 dose, On Thu11/11/22 at 1445, STAT [facility] multivitami n tablet 1 tablet 08-12 15:00: 00 Yes 1{tbl} 1 tablet, Oral, DAILY, First dose on Thu08/12/22 at 0900, Until Discontinu ed, Routine [facility] foLIC acid (FOLATE) tablet 1 mg 08-12 15:00: 00 Yes 1mg 1 mg, Oral, DAILY, First dose on Thu08/12/22 at 0900, Until Discontinu ed, Routine [facility] foLIC acid 1 mg tablet 08-12 00:00: 00 09-12 04:59 :00 No [id number] 1mg Take 1 tablet by mouth in the morning for 30 days. [facility] oxazepam (SERAX) capsule 15 mg 08-11 20:00: [...] Thu08/13/22 at 0600, Routine [Order 2 End] [facility] thiamine (VITAMIN B1) tablet 100 mg 08-11 16:15: 00 Yes 100mg 100 mg, Oral, DAILY, First dose on Thu08/11/22 at 1015, Until Discontinu ed, Routine [facility] enoxaparin (LOVENOX) injection 40 mg 08-10 23:00: 00 Yes 40mg 40 mg, Subcutaneo us, DAILY, First dose on Thu08/10/22 at 1700, Until Discontinu ed, Routine [facility] NaCl 0.9% (NS) IV infusion 1,000 mL 08-10 15:00: 00 Yes 1000mL at 125 mL/hr, IV Infusion, CONTINUOUS , Starting on Thu08/10/22 at 0900, Until Discontinu ed, Routine [facility] foLIC acid (FOLATE) 5 mg in NaCl 0.9% (NS) piggyback 08-10 15:00: 00 08-11 16:14 :47 No 5mg IV Piggyback, DAILY, First dose on Thu08/10/22 at 0900, Until Discontinu ed, 50 mL [facility] thiamine (VITAMIN B1) 100 mg in NaCl 0.9% (NS) piggyback 08-10 15:00: 00 08-10 16:08 :00 No 100mg IV Piggyback, DAILY, 1 dose, First dose on Thu08/10/22 at 0900, 50 mL [facility] LORazepam (ATIVAN) injection 2 mg 08-10 14:52: 57 Yes 2mg 2 mg, Slow IV Push, Q4HPRN, Starting on 08/10/22 at 0852, Until Discontinu ed, Routine, Seizures, Agitation, Anxiety [facility] Sliding Scale Insulin-Reg ular + Fsbg Testing 08-10 13:30: 00 Yes Subcutaneo us, AC+HS, First dose on Thu08/10/22 at 0730, Until Discontinu ed, Routine [facility] oxazepam (SERAX) capsule 15 mg 08-10 12:08: 05 Yes 15mg 15 mg, Oral, Q4HPRN, Starting on 08/10/22 at 0608, Until Discontinu ed, Routine, Only while awake for DBP equal to or greater than 100, HR equal to or greater than 100. [facility] dextrose 10% (D10W) bolus infusion 250 mL [...] unable to swallow or has mental changes. [facility] ondansetron (ZOFRAN (PF)) injection 4 mg 08-10 12:02: 53 Yes 4mg 4 mg, Slow IV Push, Q6HPRN, Starting on Thu08/10/22 at 0602, Until Discontinu ed, Routine, Nausea and Vomiting (N/V) [facility] ibuprofen (MOTRIN IB) tablet 200 mg 08-10 12:02: 45 Yes 200mg 200 mg, Oral, Q6HPRN, Starting on Thu08/10/22 at 0602, Until Discontinu ed, Routine, Pain (scale 1-3) [facility] NaCl 0.9% (NS) bolus infusion 1,000 mL 08-10 10:15: 00 08-10 13:00 :00 No 1000mL at 999 mL/hr, 1,000 mL, IV Infusion, ONCE, 1 dose, On Thu08/10/22 at 0415, STAT [facility] LORazepam (ATIVAN) injection 0.5 mg 08-10 09:15: 00 08-10 09:19 :00 No .5mg 0.5 mg, Slow IV Push, ONCE, 1 dose, On Thu08/10/22 at 0315, STAT [facility] LORazepam (ATIVAN) injection 1 mg 08-10 08:00: 00 08-10 07:05 :00 No 1mg 1 mg, Slow IV Push, ONCE NOW, 1 dose, On Thu08/10/22 at 0200, STAT [facility] thiamine (VITAMIN B1) injection 100 mg 08-10 06:45: 00 08-10 06:52 :00 No 100mg 100 mg, Intravenou s, ONCE, 1 dose, On 08/10/22 at 0045, JACIEL [facility] LORazepam (ATIVAN) injection 1 mg 08-10 05:15: 00 08-10 05:22 :00 No 1mg 1 mg, Slow IV Push, ONCE, 1 dose, On 08/09/22 at 2315, STAT [facility] ketorolac (TORADOL) injection 15 mg 2021-06 16:00: 00 04-06 14:50 :00 No 15mg 15 mg, Slow IV Push, ONCE, 1 dose, On 04/06/22 at 1100[facility]AN (PF[facility] 4 mg 2021-06 15:45: 00 04-06 14:50 :00 No 4mg 4 mg, Slow IV Push, ONCE, 1 dose, On 04/06/22 at 1045, [facility] oxazepam (SERAX) capsule 15 mg 12-31 06:28: 17 01-01 06:29 :00 No 15mg 15 mg, Oral, Q12H TAPER, 2 doses, First dose on Thu12/31/21 at 0130, Last dose on Thu12/31/21 at 1330, Routine [facility] multivitami n tablet 12-31 00:00: 00 Yes [id number] 1{tbl} Take 1 tablet by mouth in the morning. [facility] thiamine 100 mg tablet 12-31 00:00: 00 Yes [id number] 100mg Take 1 tablet by mouth in the morning. [facility] aspirin 81 mg chewable tablet 12-31 00:00: 00 Yes [id number] 81mg Take 1 tablet by mouth in the morning. [facility] multivitami n tablet 12-31 00:00: 00 Yes [id number] 1{tbl} Take 1 tablet by mouth in the morning. [facility] thiamine 100 mg tablet 12-31 00:00: 00 Yes [id number] 100mg Take 1 tablet by mouth in the morning. [facility] aspirin 81 mg chewable tablet 2021-0 12-31 00:00: 00 Yes [id number] 81mg Take 1 tablet by mouth in the morning. [facility] multivitami n tablet 2021-0 12-31 00:00: 00 Yes [id number] 1{tbl} Take 1 tablet by mouth in the morning. [facility] thiamine 100 mg tablet 0 12-31 00:00: 00 Yes [id number] 100mg Take 1 tablet by mouth in the morning. [facility] aspirin 81 mg chewable tablet 0 12-31 00:00: 00 Yes [id number] 81mg Take 1 tablet by mouth in the morning. [facility] multivitami n tablet 0 12-31 00:00: 00 Yes [id number] 1{tbl} Take 1 tablet by mouth in the morning. [facility] thiamine 100 mg tablet 2021-0 12-31 00:00: 00 Yes [id number] 100mg Take 1 tablet by mouth in the morning. [facility] aspirin 81 mg chewable tablet 12-31 00:00: 00 Yes [id number] 81mg Take 1 tablet by mouth in the morning. [facility] multivitami n tablet 0 12-31 00:00: 00 Yes [id number] 1{tbl} Take 1 tablet by mouth in the morning. [facility] thiamine 100 mg tablet 0 12-31 00:00: 00 Yes [id number] 100mg Take 1 tablet by mouth in the morning. [facility] aspirin 81 mg chewable tablet 0 12-31 00:00: 00 Yes [id number] 81mg Take 1 tablet by mouth in the morning. [facility] multivitami n tablet 2021-0 12-31 00:00: 00 Yes [id number] 1{tbl} Take 1 tablet by mouth in the morning. [facility] thiamine 100 mg tablet 12-31 00:00: 00 Yes [id number] 100mg Take 1 tablet by mouth in the morning. [facility] aspirin 81 mg chewable tablet 12-31 00:00: 00 Yes [id number] 81mg Take 1 tablet by mouth in the morning. [facility] foLIC acid 1 mg tablet 12-31 00:00: 00 01-31 04:59 :00 No [id number] 1mg Take 1 tablet by mouth in the morning for 30 days. [facility] foLIC acid 1 mg tablet 12-31 00:00: 00 01-31 04:59 :00 No [id number] 1mg Take 1 tablet by mouth in the morning for 30 days. [facility] foLIC acid 1 mg tablet 12-31 00:00: 00 01-31 04:59 :00 No [id number] 1mg Take 1 tablet by mouth in the morning for 30 days. [facility] metFORMIN 500 mg tablet 12-30 00:00: 00 Yes [id number] 500mg Take 1 tablet by mouth in the morning and 1 tablet in the evening. Take with meals. [facility] metFORMIN 500 mg tablet 12-30 00:00: 00 Yes [id number] 500mg Take 1 tablet by mouth in the morning and 1 tablet in the evening. Take with meals. [facility] metFORMIN 500 mg tablet 12-30 00:00: 00 Yes [id number] 500mg Take 1 tablet by mouth in the morning and 1 tablet in the evening. Take with meals. [facility] metFORMIN 500 mg tablet 12-30 00:00: 00 Yes [id number] 500mg Take 1 tablet by mouth in the morning and 1 tablet in the evening. Take with meals. [facility] metFORMIN 500 mg tablet 12-30 00:00: 00 Yes [id number] 500mg Take 1 tablet by mouth in the morning and 1 tablet in the evening. Take with meals. [facility] metFORMIN 500 mg tablet 12-30 00:00: 00 Yes [id number] 500mg Take 1 tablet by mouth in the morning and 1 tablet in the evening. Take with meals. [facility] aspirin chewable tablet 81 mg 12-29 14:00: 00 Yes 81mg 81 mg, Oral, DAILY, First dose on 12/29/21 at 0900, Until Discontinu ed, Routine [facility] sulfur hexafluorid e microsphr (LUMASON) injection 5 mL 12-29 13:45: 00 12-29 13:45 :00 No [id number] 5mL 5 mL, Intravenou s, ONCE, 1 dose, On 12/29/21 at 0845, Routine
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 Restricted medication : STEFANIE GORMAN [facility] enoxaparin (LOVENOX) injection 40 mg 12-29 13:00: 00 Yes 40mg 40 mg, Subcutaneo us, Q24H, First dose on 12/29/21 at 0800, Until Discontinu ed, Routine [facility] Sliding Scale Insulin - Lispro (HumaLOG) + Fsbg Testing 12-29 13:00: 00 Yes Subcutaneo us, TID MEALS+HS, First dose on 12/29/21 at 0800, Until Discontinu ed, Routine [facility] diazePAM (VALIUM) injection 10 mg 12-29 05:30: 00 12-29 04:40 :00 No 10mg 10 mg, Intravenou s, ONCE, 1 dose, On 12/29/21 at 0030, Routine [facility] diazePAM (VALIUM) injection 10 mg 12-29 04:15: 00 12-29 03:17 :00 No 10mg 10 mg, Intravenou s, ONCE, 1 dose, On 12/28/21 at 2315, Routine [facility] diazePAM (VALIUM) injection 5 mg 12-29 03:45: 01 Yes 5mg 5 mg, Intravenou s, QIDPRN, Starting on 12/28/21 at 2245, Until Discontinu ed, Routine, Seizures, Agitation [facility] foLIC acid (FOLATE) tablet 1 mg 12-29 03:45: 00 Yes 1mg 1 mg, Oral, DAILY, First dose on 12/28/21 at 2245, Until Discontinu ed, Routine [facility] thiamine (VITAMIN B1) tablet 100 mg 12-29 03:45: 00 Yes 100mg 100 mg, Oral, DAILY, First dose (after last modificati on) on 12/28/21 at 2245, Until Discontinu ed, Routine [facility] glucagon (GLUCAGEN DIAGNOSTIC KIT) injection 1 mg 12-29 03:42: 19 Yes 1mg 1 mg, Intramuscu lar, PRN, Starting on 12/28/21 at 2242, Until Discontinu ed, JACIEL, Blood Glucose < or = 70 mg/dL and patient is unable to swallow or has mental changes. [facility] dextrose 10% (D10W) bolus infusion 250 mL [...] blood glucose is < 80 mg/dL, repeat.
[facility] LORazepam (ATIVAN) injection 1 mg 12-29 03:30: 00 12-29 02:32 :00 No 1mg 1 mg, Intravenou s, ONCE, 1 dose, On 12/28/21 at 2230, Routine
Is the medication being used for status epilepticu s? No [facility] oxazepam (SERAX) capsule 15 mg 12-29 00:28: 20 Yes 15mg 15 mg, Oral, Q4HPRN, Starting on 12/28/21 at 1928, Until Discontinu ed, Routine, Only while awake for DBP equal to or greater than 100, HR equal to or greater than 100. [facility] ondansetron (ZOFRAN (PF)) injection 4 mg 12-29 00:23: 47 Yes 4mg 4 mg, Slow IV Push, Q6HPRN, Starting on 12/28/21 at 1923, Until Discontinu ed, Routine, Nausea and Vomiting (N/V) [facility] acetaminoph en (TYLENOL) tablet 650 mg 12-29 00:23: 37 Yes 650mg 650 mg, Oral, Q6HPRN, Starting on 12/28/21 at 1923, Until Discontinu ed, Routine, Pain (scale 1-3), Temp > 38.5 C [facility] chlordiazeP OXIDE (LIBRIUM) capsule 25 mg 12-28 23:15: 00 12-28 23:24 :00 No 25mg 25 mg, Oral, ONCE, 1 dose, On 12/28/21 at 1815, JACIEL [facility] NaCl 0.9% (NS) bolus infusion 2,000 mL 12-28 22:45: 00 12-28 23:18 :00 No 2000mL at 999 mL/hr, 2,000 mL, IV Infusion, ONCE, 1 dose, On 12/28/21 at 1745, JACIEL [facility] LORazepam (ATIVAN) injection 1 mg 12-28 20:45: 00 12-28 20:49 :00 No 1mg 1 mg, Slow IV Push, ONCE, 1 dose, On 12/28/21 at 1545, STAT
Is the medication being used for status epilepticu s? No [facility] acetaminoph en (TYLENOL) 500 mg tablet 10-06 00:00: 00 Yes 500mg Take 1 Tab by mouth every 6 (six) hours as needed for Pain. [facility] acetaminoph en (TYLENOL) 500 mg tablet 10-06 00:00: 00 Yes 500mg Take 1 Tab by mouth every 6 (six) hours as needed for Pain. [facility] acetaminoph en (TYLENOL) 500 mg tablet 10-06 00:00: 00 Yes 500mg Take 1 Tab by mouth every 6 (six) hours as needed for Pain. [facility] acetaminoph en (TYLENOL) 500 mg tablet 10-06 00:00: 00 Yes 500mg Take 1 Tab by mouth every 6 (six) hours as needed for Pain. [facility] acetaminoph en (TYLENOL) 500 mg tablet 10-06 00:00: 00 Yes 500mg Take 1 Tab by mouth every 6 (six) hours as needed for Pain. [facility] acetaminoph en (TYLENOL) 500 mg tablet 10-06 00:00: 00 Yes 500mg Take 1 Tab by mouth every 6 (six) hours as needed for Pain. [facility] Vital Signs Vital Name Observation Time Observation Value Comments S alliglo Systolic blood pressure 2022-11-11 20:31:31 116 mm[Hg] [facility] Diastolic blood pressure 2022-11-11 20:31:31 77 mm[Hg] [facility] Heart rate 2022-11-11 20:31:31 84 /min [facility] Respiratory rate 2022-11-11 20:31:31 12 /min [facility] Oxygen saturation in Arterial blood by Pulse oximetry 2022-11-11 20:31:31 90 /min [facility] Body temperature 2022-11-11 18:49:00 37.11 Theresa [facility] Body height 2022-11-11 18:49:00 160 cm [facility] Body weight 2022-11-11 18:49:00 68.04 kg [facility] BMI 2022-11-11 18:49:00 26.57 kg/m2 [facility] Body temperature 2022-08-11 14:00:00 36.5 Theresa [facility] Systolic blood pressure 2022-08-11 10:00:00 116 mm[Hg] [facility] Diastolic blood pressure 2022-08-11 10:00:00 71 mm[Hg] [facility] Heart rate 2022-08-11 10:00:00 70 /min [facility] Respiratory rate 2022-08-11 10:00:00 16 /min [facility] Body weight 2022-08-11 10:00:00 65.499 kg [facility] BMI 2022-08-11 10:00:00 25.58 kg/m2 [facility] Oxygen saturation in Arterial blood by Pulse oximetry 2022-08-11 10:00:00 100 /min [facility] Body height 2022-08-10 22:12:00 160 cm [facility] Systolic blood pressure 2022-04-06 16:00:00 125 mm[Hg] [facility] Diastolic blood pressure 2022-04-06 16:00:00 75 mm[Hg] [facility] Heart rate 2022-04-06 16:00:00 87 /min [facility] Respiratory rate 2022-04-06 16:00:00 22 /min [facility] Oxygen saturation in Arterial blood by Pulse oximetry 2022-04-06 16:00:00 98 /min [facility] Body temperature 2022-04-06 14:41:00 37 Theresa [facility] Body height 2022-04-06 14:41:00 160 cm [facility] Body weight 2022-04-06 14:41:00 63.504 kg [facility] BMI 2022-04-06 14:41:00 24.80 kg/m2 [facility] Systolic blood pressure 2022-01-20 02:27:00 121 mm[Hg] [facility] Diastolic blood pressure 2022-01-20 02:27:00 75 mm[Hg] [facility] Heart rate 2022-01-20 02:27:00 79 /min [facility] Respiratory rate 2022-01-20 02:27:00 12 /min [facility] Oxygen saturation in Arterial blood by Pulse oximetry 2022-01-20 02:27:00 98 /min [facility] Body temperature 2022-01-19 22:19:00 36.44 Theresa [facility] Body weight 2022-01-19 22:19:00 60.328 kg [facility] BMI 2022-01-19 22:19:00 23.56 kg/m2 [facility] Systolic blood pressure 2021-12-30 20:52:00 134 mm[Hg] [facility] Diastolic blood pressure 2021-12-30 20:52:00 76 mm[Hg] [facility] Heart rate 2021-12-30 20:52:00 67 /min [facility] Body temperature 2021-12-30 20:26:00 36.67 Theresa [facility] Oxygen saturation in Arterial blood by Pulse oximetry 2021-12-30 20:26:00 99 /min [facility] Respiratory rate 2021-12-30 16:21:00 18 /min [facility] Body weight 2021-12-30 08:27:00 60.464 kg [facility] BMI 2021-12-30 08:27:00 23.61 kg/m2 [facility] Body height 2021-12-29 01:29:00 160 cm [facility] Procedures Procedure Date / Time Performed Performing Clinician Source MAGNESIUM 2022-11-11 19:05:00 Hemant Klein [facility] BASIC METABOLIC PANEL (NA, K, CL, CO2, GLUCOSE, BUN, CREATININE, CA) 2022-11-11 19:05:00 Hemant Klein [facility] ETHANOL 2022-11-11 19:05:00 Hemant Klein [facility] CBC WITH DIFF 2022-11-11 19:05:00 Hemant Klein [facility] POCT GLUCOSE (AUTOMATED) 2022-08-11 13:36:00 Arvind Prado [facility] PHOSPHORUS 2022-08-11 10:35:00 Jessica Prado [facility] MAGNESIUM 2022-08-11 10:35:00 Jessica Prado [facility] AMMONIA, PLASMA 2022-08-11 10:35:00 Jessica Praod [facility] COMP. METABOLIC PANEL ([id number]) 2022-08-11 10:35:00 [facility] 2022-08-11 10:35:00 Oswald Murphy [facility] POCT GLUCOSE (AUTOMATED) 2022-08-11 02:15:00 Arvind Prado [facility] POCT GLUCOSE (AUTOMATED) 2022-08-10 23:10:00 Arvind Prado gregoria [facility] POCT GLUCOSE (AUTOMATED) 2022-08-10 18:20:00 Arvind Prado gregoria [facility] POCT GLUCOSE (AUTOMATED) 2022-08-10 14:11:00 Arvind Prado [facility] POCT GLUCOSE (AUTOMATED) 2022-08-10 10:59:00 Gopal Driscoll [facility] COVID-19 (ID NOW RAPID TESTING) 2022-08-10 07:17:00 Rayray Driscoll [facility] LAB ONLY COVID INTERPRETATION 2022-08-10 07:17:00 Rayray Driscoll [facility] HB ECG ROUTINE & RHYTHM STRIP 2022-08-10 06:03:48 Rayray Driscoll [facility] URINALYSIS 2022-08-10 05:46:00 [facility] URINE DRUG (IMMUNOASSAY) - COMPREHENSIVE DRUG SCREEN W/O REFLEX 2022-08-10 05:45:00 Rayray Driscoll [facility] CREATINE KINASE 2022-08-10 05:16:[address] [facility] [address] 2022-08-10 05:16:00 Rayray Driscoll [facility] MAGNESIUM 2022-08-10 05:16:00 Rayray Driscoll [facility] TROPONIN I 2022-08-10 05:16:00 Ray[facility]coll [facility] COMP. METABOLIC PANEL ([id number]) 2022-08-10 05:16:00 Rayray Driscoll [facility] ETHANOL 2022-08-10 05:16:00 Rayray Driscoll [facility] CBC WITH DIFF 2022-08-10 05:16:00 Rayray Driscoll [facility] N-TERMINAL PRO-BNP 2022-08-10 05:16:00 Rayray Driscoll [facility] CRITICAL CARE 2022-08-10 04:52:00 Rayray Driscoll [facility] XR CHEST 1 VW 2022-04-06 14:51:50 Diya Chowdhury [facility] LIPASE 2022-04-06 14:42:00 [facility] 2022-04-06 14:42:00 Diya Chowdhury Un [facility] COMP. METABOLIC PANEL ([id number]) 2022-04-06 14:42:00 Diya Chowdhury [facility] CBC WITH DIFF 2022-04-06 14:42:00 Diya Chowdhury [facility] PROTHROMBIN TIME / INR 2022-04-06 14:42:00 Diya Chowdhury [facility] ACTIVATED PARTIAL THRMPLAS NELDA 2022-04-06 14:42:00 Diya Chowdhury [facility] LACTIC ACID WHOLE BLOOD 2022-01-20 00:22:00 Leticia Baldwin [facility] URINE DRUG (IMMUNOASSAY) - COMPREHENSIVE DRUG SCREEN 2022-01-19 23:10:00 Leticia Baldwin [facility] URINALYSIS 2022-01-19 23:10:00 Leticia Baldwin [facility] TROPONIN I 2022-01-19 23:00:00 Leticia Baldwin [facility] COMP. METABOLIC PANEL ([id number]) 2022-01-19 23:00:00 Leticia Baldwin [facility] LITHIUM 2022-01-19 23:00:[address] [facility] [facility] 2022-01-19 23:00:00 [facility] CBC WITH DIFF 2022-01-19 23:00:00 Leticia Baldwin [facility] COVID-19 (ID NOW RAPID TESTING) 2022-01-19 23:00:00 Leticia Baldwin [facility] CT HEAD WO CONTRAST 2022-01-19 22:49:00 Leticia Baldwin [facility] XR CHEST 1 VW 2022-01-19 22:41:00 Leticia Baldwin [facility] POCT GLUCOSE (AUTOMATED) 2022-01-19 22:25:00 Leticia Baldwin [facility] POCT GLUCOSE (AUTOMATED) 2021-12-30 21:55:00 Arvind Prado [facility] POCT GLUCOSE (AUTOMATED) 2021-12-30 16:21:00 Arvind Prado [facility] POCT GLUCOSE (AUTOMATED) 2021-12-30 12:30:00 Arvind Prado [facility] HEPATIC FUNCTION PANEL (85328) (ALB,T.PRO,BILI T,BU/BC,ALT,AST,ALK PHOS) 2021-12-30 09:28:00 Maira Gaitan [facility] POCT GLUCOSE (AUTOMATED) 2021-12-30 02:11:00 Arvind Prado [facility] POCT GLUCOSE (AUTOMATED) 2021-12-29 21:41:00 Arvind Prado [facility] POCT GLUCOSE (AUTOMATED) 2021-12-29 16:37:00 Arvind Prado [facility] TRANSTHORACIC ECHO (TTE) COMPLETE W/ CONTRAST 2021-12-29 13:05:00 Jessica Prado [facility] POCT GLUCOSE (AUTOMATED) 2021-12-29 12:41:00 Arvind Prado [facility] TROPONIN I 2021-12-29 09:42:00 [place], Jessica [facility] TROPONIN I 2021-12-29 04:55:00 Jessica Prado [facility] CT HEAD WO CONTRAST 2021-12-28 21:18:22 Poppy Renteria [facility] AMMONIA, PLASMA 2021-12-28 21:00:00 Pia Renteria [facility] COVID-19 (ID NOW RAPID TESTING) 2021-12-28 20:42:00 Pia Renteria [facility] LAB ONLY COVID INTERPRETATION 2021-12-28 20:42:00 Pia Renteria [facility] URINE DRUG (IMMUNOASSAY) - COMPREHENSIVE DRUG SCREEN W/O REFLEX 2021-12-28 20:42:00 Pia Renteria [facility] URINALYSIS 2021-12-28 [facility]:40[facility] 2021-12-28 20:40:00 Corina Renteria [facility] TROPONIN I 2021-12-28 20:40:00 Pia Renteria [facility] THYROID STIMULATING HORMONE 2021-12-28 20:40:00 Jessica Prado [facility] COMP. METABOLIC PANEL (55254) 2021-12-28 20:40:00 Pia Renteria [facility] LIPID PANEL (98880)(TOTAL CHOLESTEROL, TRIGLYCERIDES, HDL) 2021-12-28 20:40:00 Demetrius Langford [facility] ETHANOL 2021-12-28 20:40:00 Demetrius Langford [facility] CBC WITH DIFF 2021-12-28 20:40:00 Pia Renteria [facility] GLYCOSYLATED HEMOGLOBIN (A1C) 2021-12-28 20:40:00 Jessica Prado [facility] PROTHROMBIN TIME / INR 2021-12-28 20:40:00 Lesly Renteria [facility] XR CHEST 1 VW 2021-12-28 20:16:00 Pia Renteria [facility] HB ECG ROUTINE & RHYTHM STRIP 2021-12-28 20:04:59 Pia Renteria [facility] Encounters Start Date/Time End Date/Time Encounter Type Admission Type Attending [facility] Care Department Encounter ID Source 2021-09-17 16:45:00 Inpatient [facility] [id number] [facility] 2020-06-06 16:07:00 Inpatient [facility] [id number] [facility] 2020-06-06 06:20:00 Inpatient [facility] [id number] [facility] 2020-06-05 19:35:00 Inpatient [facility] [id number] [facility] 2020-05-23 19:53:00 Inpatient [facility] [id number] [facility] 2020-05-23 19:53:00 Inpatient [facility] [id number] [facility] 2022-11-11 13:50:00 2022-11-11 16:07:00 Emergency X HEMANT KLEIN [facility] [id number] [facility] 2022-11-11 13:50:00 2022-11-11 16:07:00 Emergency Jessica [facility] [id number] 4.2.7.2.686 [id number] [facility] 2022-10-14 20:59:00 2022-10-14 20:59:00 Emergency [facility] [id number] [facility] 2022-10-14 20:59:00 2022-10-14 20:59:00 Emergency Emergency ClareDeborah brotherschloe [facility] [id number] [facility] 2022-08-09 22:59:00 2022-08-11 13:02:00 Outpatient JESSICA GAINES [facility] [id number] [facility] 2022-08-09 22:59:00 2022-08-11 13:02:00 Emergency Rayray Driscoll Jelani Edionwe, [facility] [id number] 350.1.13.10 4.2.7.2.686 [id number] [facility] 2022-04-06 09:38:00 2022-04-06 11:42:00 Emergency X DIYA CHOWDHURY [email or web address] ERT [id number] [facility] 2022-04-06 09:38:00 2022-04-06 11:42:00 Emergency Diya Chowdhury [facility] [id number] 350.1.13.10 4.2.7.2.686 [id number] [facility] 2022-03-07 12:38:00 2022-03-07 12:38:00 Emergency [facility] [id number] [facility] 2022-03-07 12:38:00 2022-03-07 12:38:00 Emergency Emergency Fidel Cuellar [facility] [id number] [facility] 2022-01-19 17:18:00 2022-01-19 22:00:00 Emergency X DIRK YARBROUGH [facility] [[email or web address]] ERT [id number] [facility] 2022-01-19 17:18:00 2022-01-19 22:00:00 Emergency Leticia Baldwin Julio C [facility] [id number] 350.1.13.10 4.2.7.2.686 [id number] [facility] 2021-12-31 00:00:00 2021-12-31 00:00:00 Transition of Care Faye Portillo 1.2840.114 350.1.13.10 4.2.7.2.686 [id number] [facility] 2021-12-28 14:53:00 2021-12-30 17:42:00 Inpatient X JESSICA PRADO [facility] [[email or web address]] MARGO [id number] [facility] 2021-12-28 14:53:00 2021-12-30 17:42:00 Hospital Encounter Pia Renteria Jelani [facility] [id number] 350.1.13.10 4.2.7.2.686 [id number] [facility] 2021-09-17 16:47:00 2021-09-17 16:47:00 Emergency [facility] [id number] [facility] 2020-06-06 16:07:00 2020-06-06 16:07:00 Emergency [facility] [id number] [facility] Results Test Description Test Time Test Comments Results Resul t Comments Source ETHANOL 2022-11-11 19:45:56 ALCOHOL<10mg/dL0 11/11/2022 2:45 PM [facility]<10 Plhiuxys17-261 Toxic>100 Depression of TECHNICAL APPLICATIONS SCIENTIST>400 [facility] 19:41:47* Test Item Value Reference Range Interpretation Comme nts MAGNESIUM (test code = 3996165223) 1.8 mg/dL 1.7-2.4 Lab Interpretation (test cod e = 01627-3) Normal [facility] WITH [id number] 19:25:26* Test Item Value Reference Range Interpretation [...] 33.9 g/dL 31.2-35.0 RDW-SD (test code = 77488-3) 46.0 fL 38.5-51.6 RDW-CV (test code = 788-0) 13.5 % 12.1-15.4 PLT (test code = 777-3) 237 See_Comment [Automated messa ge] The system which generated this result transmitted reference range: 150 - 328 10*3/?L. The reference range was not used to interpret this result as normal/abnormal. MPV (test code = 75254-1) 8.9 fL 9.8-13.0 L NRBC/100 WBC (test code = 5130343972) 0.0 See_Comment [Automated Coherent Path ssage] The system which generated this result transmitted reference range: 0.0 - 10.0 /100 WBCs. The reference range was not used to interpret this result as normal/abnormal. NRBC x10^3 (test code = 9084172703) See_Comment [Automated PubNuba ge] The system which generated this result transmitted reference range: 10*3/?L. The reference range was not used to interpret this result as normal/abnormal. GRAN MAT (NEUT) % (test code = 770-8) 71.2 % IMM GRAN % (test code = 3923468155) 0.30 % LYMPH % (test code = 736-9) 18.2 % MONO % (test code = 5905-5) 8.4 % EOS % (test code = 713-8) 1.0 % BASO % (test code = 706-2) 0.9 % GRAN MAT x10^3(ANC) (test code = 9709610479) 4.86 10*3/uL 1.99-6.95 IMM GRAN x10^3 (test code = 6040565333) 0.00-0.06 LYMPH x10^3 (test code = 731-0) 1.24 10*3/uL 1.09-3.23 MONO x10^3 (test code = 742-7) 0.57 10*3/uL 0.36-1.02 EOS x10^3 (test code = 711-2) 0.07 10*3/uL 0.06-0.53 BASO x10^3 (test code = 704-7) 0.06 10*3/uL 0.01-0.09 Lab Interpretation (test code = 93748-6) [facility] Rflx Cult/Nomgc8956-86-56 22:20:00* Test Item Value Reference Range Interpretation Comme nts Color,Urine (test code = UCOL) Yellow Yellow Clarity,Urine (test code = UCLAR) Clear Clear Ph, Urine (test code = UPH) 7.0 5.0-9.0 N Specific [place],Urine (test code = USG) 1.020 1.005-1.030 N [...] code = ULEU) Negative mg/dL Negative Drug Screen,Sudpy6876-47-76 22:20:00* Test Item Value Reference Range Interpretation [...] UPROP) Negative Negative Complete Blood Count Auto Nlck4435-64-46 21:21:00* Test Item Value Reference Range Interpretation [...] code = NRBCP) 0 % Comprehensive Metabolic Miopj0378-53-75 21:21:00* Test Item Value Reference Range Interpretation [...] a race coefficient. Additional information canbe found at:[email or web address]_[email or web address] 5.pdf ([email or web address]) [Automated message] The system [...] = ALP) 134 U/L 46-116 H Ethanol Iffzt4439-60-81 21:21:00* Test Item Value Reference Range Interpretation Comme nts Ethanol (test code = ETOH) < 3 mg/dL The pharmacologi yudy response to blood alcohol levels mayvary from individual to individual. The fatal concentrationhas been reported to be >400mg/dL. POCT GLUCOSE (AUTOMATED)2022-08-11 13:40:35* Test Item Value Reference Range Interpretation Comme nts POCT GLU (test code = 9629464159) 121 mg/dL 70-110 H Lab Interpretation (test cod e = 73269-9) Abnormal [facility] GLUCOSE (AUTOMATED)2022-08-11 02:18:58* Test Item Value Reference Range Interpretation Comme nts POCT GLU (test code = 5273225674) 183 mg/dL 70-110 H Lab Interpretation (test cod e = 83027-2) Abnormal [facility] GLUCOSE (AUTOMATED)2022-08-10 23:16:11* Test Item Value Reference Range Interpretation Comme nts POCT GLU (test code = 1742940762) 176 mg/dL 70-110 H Lab Interpretation (test cod e = 89721-3) Abnormal [facility] GLUCOSE (AUTOMATED)2022-08-10 18:22:51* Test Item Value Reference Range Interpretation Comme nts POCT GLU (test code = 8113557563) 165 mg/dL 70-110 H Lab Interpretation (test cod e = 93826-8) Abnormal [facility] GLUCOSE (AUTOMATED)2022-08-10 14:18:05* Test Item Value Reference Range Interpretation Comme nts POCT GLU (test code = 8239736581) 138 mg/dL 70-110 H Lab Interpretation (test cod e = 99775-0) Abnormal [facility] GLUCOSE (AUTOMATED)2022-08-10 11:01:21* Test Item Value Reference Range Interpretation Comme nts POCT GLU (test code = 8704649552) 143 mg/dL 70-110 H Lab Interpretation (test cod e = 29515-4) [facility] [id number] 06:51:18* Test Item Value Reference Range Interpretation Comme nts TROPONIN I (test code = 1702457734) 0.008 ng/mL <=0.034 JUAN ALBERTO (test code [...] of biotin. Lab Interpretation (test code = 96920-5) Normal [facility] WWG-[id number] 06:47:37* Test Item Value Reference Range Interpretation Comme nts NT-proBNP (test code = 1035733839) 37 pg/mL <=125 JUAN ALBERTO (test code = JUAN ALBERTO) Biotin has been reported to cause a negative bias, interpret results relative to patient's use of biotin. Lab Interpretation (test code = 79338-8) Normal [facility]23-[facility] 06:25:52 ALCOHOL<10mg/dL08/10/2022 12:25 [facility] Dpfmgghw66-752 Toxic>100 Depression of TECHNICAL APPLICATIONS SCIENTIST>400 Fatalities [facility]UnMem[facility] HospitalCOMP. METABOLIC PANEL (10915)2022-08-10 06:19:15* Test Item Value Reference Range Interpretation Comme nts NA (test code = 7131551578) 135 mmol/L 135-145 K (test code = 6965570561) 4.3 mmol/L 3.5-5.0 CL (test code = 6729329396) 98 mmol/L 98-108 CO2 TOTAL (test code = 3212610502) 30 mmol/L 23-31 AGAP (test code = 0608878316) 7 2-16 BUN (test code = 0754727738) 11 mg/dL 7-23 GLUCOSE (test code = 3518724995) 153 mg/dL 70-110 H CREATININE (test code = 4949742916) 0.77 mg/dL 0.60-1.25 TOTAL BILI (test code = 5022616499) 0.9 mg/dL 0.1-1.1 CALCIUM (test code = 1487390756) 10.0 mg/dL 8.6-10.6 T PROTEIN (test code = 9591435606) 7.7 g/dL 6.3-8.2 ALBUMIN (test code = 9184425149) 4.6 g/dL 3.5-5.0 ALK PHOS (test code = 7962210020) 92 U/L 34-122 ALTv (test code = 1742-6) 35 U/L 5-50 AST(SGOT) (test code = 4793259604) 42 U/L 13-40 H eGFR (test code = 7631782261) 106.1 mL/min/1.73m2 JUAN ALBERTO (test code = [...] imaging tests). Lab Interpretation (test code = 67156-3) [facility]normal [facility] 06:19:15* Test Item Value Reference Range Interpretation Comme nts MAGNESIUM (test code = 4624609903) 2.2 mg/dL 1.7-2.4 Lab Interpretation (test cod e = 88358-3) Normal [facility]2023-[facility] 06:18:55* Test Item Value Reference Range Interpretation Comme nts LIPASE (test code = 1275789598) 18 U/L 0-220 Lab Interpretation (test cod e = 24106-1) Normal [facility]CREATINE YYSITQ5188-36-86 06:18:55* Test Item Value Reference Range Interpretation Comme nts CK (test code = 2594931715) 174 U/L 33-194 Lab Interpretation (test cod e = 72297-3) [facility] WITH JHIR9209-24-04 06:02:35* Test Item Value Reference Range Interpretation Comme nts WBC (test code = 6690-2) 7.50 See_Comment [Automated batterii] The system which generated this result transmitted reference range: 4.20 - 10.70 10*3/?L. The reference range was not used to interpret this result as normal/abnormal. RBC (test code = 789-8) 4.80 See_Comment [Automated [employer]] The system which generated this result transmitted [...] 32.4 g/dL 31.2-35.0 RDW-SD (test code = 10442-4) 50.2 fL 38.5-51.6 RDW-CV (test code = 788-0) 14.3 % 12.1-15.4 PLT (test code = 777-3) 241 See_Comment [Automated messa ge] The system which generated this result transmitted reference range: 150 - 328 10*3/?L. The reference range was not used to interpret this result as normal/abnormal. MPV (test code = 07595-8) 8.6 fL 9.8-13.0 L NRBC/100 WBC (test code = 4202155203) 0.0 See_Comment [Automated Coherent Path ssage] The system which generated this result transmitted reference range: 0.0 - 10.0 /100 WBCs. The reference range was not used to interpret this result as normal/abnormal. NRBC x10^3 (test code = 3675047793) See_Comment [Automated messa ge] The system which generated this result transmitted reference range: 10*3/?L. The reference range was not used to interpret this result as normal/abnormal. GRAN MAT (NEUT) % (test code = 770-8) 63.9 % IMM GRAN % (test code = 0070309706) 0.50 % LYMPH % (test code = 736-9) 17.6 % MONO % (test code = 5905-5) 16.5 % EOS % (test code = 713-8) 0.7 % BASO % (test code = 706-2) 0.8 % GRAN MAT x10^3(ANC) (test code = 2674171268) 4.79 10*3/uL 1.99-6.95 IMM GRAN x10^3 (test code = 7017651180) 0.04 10*3/uL 0.00-0.06 LYMPH x10^3 (test code = 731-0) 1.32 10*3/uL 1.09-3.23 MONO x10^3 (test code = 742-7) 1.24 10*3/uL 0.36-1.02 H EOS x10^3 (test code = 711-2) 0.05 10*3/uL 0.06-0.53 L BASO x10^3 (test code = 704-7) 0.06 10*3/uL 0.01-0.09 Lab Interpretation (test code = 47676-2) [facility]normal [facility] [id number] 15:15:32* Test Item Value Reference Range Interpretation Comments TROPONIN I (test code = 7162525522) 0.007 ng/mL See_Comment [Automated message] The system [...] of biotin. Lab Interpretation (test code = 66729-5) Normal [facility] HospitalaPTT2022-10-16 15:08:29* Test Item Value Reference Range Interpretation Comme [facility] APTT Patient (test code = 3173-2) See_Comment [Automated message] The system which generated this result transmitted reference range: 23 - 38 Seconds. The reference range was not used to interpret this result as normal/abnormal. JUAN ALBERTO (test code = JUAN ALBERTO) The [facility] [[email or web address]] patient population mean normal value for aPTT is 30 seconds. Lab Interpretation (test code = 09980-6) Normal [facility] HospitalPROTHROMBIN TIME / [id number] 15:06:28* Test Item Value Reference Range Interpretation Comme [facility] PROTIME PATIENT (test code = 5964-2) See_Comment [Automated PubNuba ge] The system which generated this result transmitted reference range: 12.0 - 14.7 Seconds. The reference range was not used to interpret this result as normal/abnormal. INR (test code = 6301-6) Normal INR <1.1; Warfarin Therapeutic range 2.0 to 3.0 or 2.5 to 3.5, depending upon the indications. Lab Interpretation (test code = 47975-3) Normal [facility]COMP. METABOLIC PANEL (45232)2022-04-06 15:03:31* Test Item Value Reference Range Interpretation Comme nts NA (test code = 3749894161) 136 mmol/L 135-145 K (test code = 4895445356) 5.0 mmol/L 3.5-5 CL (test code = 4956221822) 104 mmol/L 98-108 CO2 TOTAL (test code = 9272060832) 21 mmol/L 23-31 L AGAP (test code = 4164304220) 2-16 BUN (test code = 5542915726) 11 mg/dL 7-23 GLUCOSE (test code = 9702835067) 162 mg/dL 70-110 H CREATININE (test code = 1917882388) 0.52 mg/dL 0.6-1.25 L TOTAL BILI (test code = 9171069034) 1.0 mg/dL 0.1-1.1 CALCIUM (test code = 0162770500) 9.3 mg/dL 8.6-10.6 T PROTEIN (test code = 8657452484) 7.4 g/dL 6.3-8.2 ALBUMIN (test code = 3516974697) 4.4 g/dL 3.5-5 ALK PHOS (test code = 3586582464) 134 U/L 34-122 H ALTv (test code = 1742-6) 17 U/L 5-50 AST(SGOT) (test code = 4632020576) 38 U/L 13-40 eGFR (test code = 1996268834) mL/min/1.73m2 JUAN ALBERTO (test code = JUAN [...] imaging tests). Lab Interpretation (test code = 96656-8) [facility]normal [facility]LIP[facility], [id number] 15:03:31* Test Item Value Reference Range Interpretation Comme nts LIPASE (test code = 3017896856) 29 U/L 0-220 Lab Interpretation (test cod e = 10821-8) Normal [facility] HospitalCB WITH YLIK5624-13-36 14:51:49* Test Item Value Reference Range Interpretation Comme nts WBC (test code = 6690-2) See_Comment [[employer]] The system which generated this result transmitted reference range: 4.20 - 10.70 10*3/?L. The reference range was not used to interpret this result as normal/abnormal. RBC (test code = 789-8) See_Comment [Automated batterii] The system which generated this result transmitted [...] 34.0 g/dL 31.2-35 RDW-SD (test code = 63709-6) 45.9 fL 38.5-51.6 RDW-CV (test code = 788-0) 13.3 % 12.1-15.4 PLT (test code = 777-3) See_Comment [Automated messa ge] The system which generated this result transmitted reference range: 150 - 328 10*3/?L. The reference range was not used to interpret this result as normal/abnormal. MPV (test code = 40864-5) 8.4 fL 9.8-13 L NRBC/100 WBC (test code = 3342197876) See_Comment [Automated Coherent Path ssage] The system which generated this result transmitted reference range: 0.0 - 10.0 /100 WBCs. The reference range was not used to interpret this result as normal/abnormal. NRBC x10^3 (test code = 0992665028) See_Comment [Automated messa ge] The system which generated this result transmitted reference range: 10*3/?L. The reference range was not used to interpret this result as normal/abnormal. GRAN MAT (NEUT) % (test code = 770-8) 63.0 % IMM GRAN % (test code = 1644439171) 0.50 % LYMPH % (test code = 736-9) 25.2 % MONO % (test code = 5905-5) 9.8 % EOS % (test code = 713-8) 0.3 % BASO % (test code = 706-2) 1.2 % GRAN MAT x10^3(ANC) (test code = 7605490586) 3.73 10*3/uL 1.99-6.95 IMM GRAN x10^3 (test code = 1953190596) 0.03 10*3/uL 0-0.06 LYMPH x10^3 (test code = 731-0) 1.49 10*3/uL 1.09-3.23 MONO x10^3 (test code = 742-7) 0.58 10*3/uL 0.36-1.02 EOS x10^3 (test code = 711-2) 0.06-0.53 L BASO x10^3 (test code = 704-7) 0.07 10*3/uL 0.01-0.09 Lab Interpretation (test code = 61524-6) [facility] Ur[facility] Rflx Cult/Cntmz5961-69-18 13:53:00* Test Item Value Reference Range Interpretation Comme nts Color,Urine (test code = UCOL) Yellow Yellow Clarity,Urine (test code = UCLAR) Cloudy Clear A Ph, Urine (test code = UPH) 7.5 5.0-9.0 N Specific [place],Urine (test code = USG) 1.025 1.005-1.030 N [...] = ULEU) Negative mg/dL Negative UF REFLEXDrug Screen,Porda1347-68-74 13:53:00* Test Item Value Reference Range Interpretation [...] UPROP) Negative Negative Complete Blood Count Auto Lzjv8719-37-04 12:58:00* Test Item Value Reference Range Interpretation [...] = NRBCP) 0 % Coronavirus PCR, COVID19 Evqrx1291-63-13 12:58:00* Test Item Value Reference Range Interpretation Comme nts Coronavirus PCR, COVID19 Rapid (test code = SARSCOV2) Coronavirus PCR, COVID19 Rapid (test code = MWCHESP88.1) Reference Range: Negative SARS-CoV-2 PCR Result: (test code = SARS-CoV-2 PCR Result:) Negative by RT-PCR COVID-19 Status: AsymptomaticComprehensive Metabolic Kdvhy7809-85-31 12:58:00* Test Item Value Reference Range Interpretation [...] = ALP) 144 U/L 46-116 H Ethanol Kfghx8662-44-81 12:58:00* Test Item Value Reference Range Interpretation Comme nts Ethanol (test code = ETOH) < 3 mg/dL The pharmacologi uydy response to blood alcohol levels mayvary from individual to individual. The fatal concentrationhas been reported to be >400mg/dL. ZYXKWED3633-51-89 01:47:56* Test Item Value Reference Range Interpretation Comme nts [place] (test code = 4482392195) 0.7 mmol/L 0.6-1.2 JUAN ALBERTO (test code = JUAN ALBERTO) Toxic Range: ? Greater than 1.2 mmol/L Lab Interpretation (test code = 71424-2) [facility] [id number] 00:26:53* Test Item Value Reference Range Interpretation Comments TROPONIN I (test code = 5852263129) 0.002 ng/mL See_Comment [Automated message] The system [...] of biotin. Lab Interpretation (test code = 63891-4) Normal [facility]ETH[facility]22-[facility] 00:18:52 ALCOHOL<10mg/dL01/19/2022 7:18 PM [facility]<10 Bimnlrlu18-762 Toxic>100 Depression of TECHNICAL APPLICATIONS SCIENTIST>400 Fatalities ReportedCHRISTUS Saint [facility] HospitalCOMP. METABOLIC PANEL (83432)2022-01-20 00:16:16* Test Item Value Reference Range Interpretation Comme nts NA (test code = 0642962842) 137 mmol/L 135-145 K (test code = 3450763868) 4.5 mmol/L 3.5-5 CL (test code = 2301880502) 103 mmol/L 98-108 CO2 TOTAL (test code = 3556932219) 26 mmol/L 23-31 AGAP (test code = 1428892219) 2-16 BUN (test code = 6778207463) 10 mg/dL 7-23 GLUCOSE (test code = 2479513994) 121 mg/dL 70-110 H CREATININE (test code = 6912237441) 0.65 mg/dL 0.6-1.25 TOTAL BILI (test code = 9482733134) 0.8 mg/dL 0.1-1.1 CALCIUM (test code = 1909725523) 11.4 mg/dL 8.6-10.6 H T PROTEIN (test code = 5095234033) 7.2 g/dL 6.3-8.2 ALBUMIN (test code = 3548153579) 4.6 g/dL 3.5-5 ALK PHOS (test code = 5917208121) 112 U/L 34-122 ALTv (test code = 1742-6) 19 U/L 5-50 AST(SGOT) (test code = 0066119570) 26 U/L 13-40 eGFR (test code = 1610640511) mL/min/1.73m2 JUAN ALBERTO (test code = JUAN [...] imaging tests). Lab Interpretation (test code = 91898-1) Abnormal [facility] WITH GCPC0620-00-06 23:43:54* Test Item Value Reference Range Interpretation Comme nts WBC (test code = 6690-2) See_Comment [Automated batterii] The system which generated this result transmitted reference range: 4.20 - 10.70 10*3/?L. The reference range was not used to interpret this result as normal/abnormal. RBC (test code = 789-8) See_Comment [[employer]] The system which generated this result transmitted [...] 34.4 g/dL 31.2-35 RDW-SD (test code = 86738-6) 44.0 fL 38.5-51.6 RDW-CV (test code = 788-0) 12.6 % 12.1-15.4 PLT (test code = 777-3) See_Comment [Automated messa ge] The system which generated this result transmitted reference range: 150 - 328 10*3/?L. The reference range was not used to interpret this result as normal/abnormal. MPV (test code = 35268-0) 9.1 fL 9.8-13 L NRBC/100 WBC (test code = 0125762873) See_Comment [Automated me ssage] The system which generated this result transmitted reference range: 0.0 - 10.0 /100 WBCs. The reference range was not used to interpret this result as normal/abnormal. NRBC x10^3 (test code = 6010392338) See_Comment [Automated messa ge] The system which generated this result transmitted reference range: 10*3/?L. The reference range was not used to interpret this result as normal/abnormal. GRAN MAT (NEUT) % (test code = 770-8) 69.8 % IMM GRAN % (test code = 0502244669) 0.40 % LYMPH % (test code = 736-9) 18.0 % MONO % (test code = 5905-5) 10.9 % EOS % (test code = 713-8) 0.1 % BASO % (test code = 706-2) 0.8 % GRAN MAT x10^3(ANC) (test code = 2767840464) 5.58 10*3/uL 1.99-6.95 IMM GRAN x10^3 (test code = 9761492134) 0.03 10*3/uL 0-0.06 LYMPH x10^3 (test code = 731-0) 1.44 10*3/uL 1.09-3.23 MONO x10^3 (test code = 742-7) 0.87 10*3/uL 0.36-1.02 EOS x10^3 (test code = 711-2) 0.06-0.53 L BASO x10^3 (test code = 704-7) 0.06 10*3/uL 0.01-0.09 Lab Interpretation (test code = 88335-5) Abnormal [facility] GLUCOSE (AUTOMATED)2022-01-19 22:27:41* Test Item Value Reference Range Interpretation Comme nts POCT GLU (test code = 6766556201) 123 mg/dL 70-110 H Lab Interpretation (test cod e = 01560-2) Abnormal [facility] GLUCOSE (AUTOMATED)2021-12-30 22:08:16* Test Item Value Reference Range Interpretation Comme nts POCT GLU (test code = 3941582428) 167 mg/dL 70-110 H Lab Interpretation (test cod e = 70679-9) Abnormal [facility] GLUCOSE (AUTOMATED)2021-12-30 16:50:40* Test Item Value Reference Range Interpretation Comme nts POCT GLU (test code = 9962076471) 154 mg/dL 70-110 H Lab Interpretation (test cod e = 32936-0) Abnormal [facility] GLUCOSE (AUTOMATED)2021-12-30 12:38:43* Test Item Value Reference Range Interpretation Comme nts POCT GLU (test code = 3479622729) 164 mg/dL 70-110 H Lab Interpretation (test cod e = 28391-4) Abnormal [facility] GLUCOSE (AUTOMATED)2021-12-30 02:14:58* Test Item Value Reference Range Interpretation Comme nts POCT GLU (test code = 1609992475) 220 mg/dL 70-110 H Lab Interpretation (test cod e = 83852-2) Abnormal [facility] GLUCOSE (AUTOMATED)2021-12-29 21:50:02* Test Item Value Reference Range Interpretation Comme nts POCT GLU (test code = 3018967445) 191 mg/dL 70-110 H Lab Interpretation (test cod e = 50355-3) Abnormal [facility] GLUCOSE (AUTOMATED)2021-12-29 20:15:01* Test Item Value Reference Range Interpretation Comme nts POCT GLU (test code = 2981154661) 163 mg/dL 70-110 H Lab Interpretation (test cod e = 40011-9) [facility] 19:12:22* Test Item Value Reference Range Interpretation Comme nts Height (test code = 8534106803) in Weight (test code = 1957752141) lbs Systolic BP (test code = 7576499688) mmHg Diastolic BP (test code = 7453068840) mmHg Heart Rate (test code = 5500404129) bpm BSA (test code = 3415604324) 1.62 m2 Ao root annulus (test code = 0538290543) 2.45 cm Ao root diam (test code = 4708715930) 2.45 cm Aortic root (test code = 6161594187) 2.45 cm ACS (test code = 0761239164) 1.66 cm LA size (test code = 9769038841) 3.2 cm LVOT diameter (test code = 9761186297) 1.95 cm LVIDD (test code = 6425925233) 3.60 cm IVS (test code = 2255461124) 0.94 cm Interventricular Septum Diastolic Thickness by 2D (test code = 5826216) 0.94 cm LVPWD (test code = 3212099290) 0.80 cm PW (test code = 9173069495) 0.80 cm 0.6-1.1 EF(Teich) (test code = 6369634899) 52.80 % LVIDS (test code = 0831562393) 2.60 cm FS (test code = 7979228232) 27 % EF - 2D (test code = 70473031) 52.80 % LAV(MOD-sp4) (test code = 0091236441) 16.80 mL MV Peak E Jovany (test code = 3089366387) 46.1 cm/s E wave decelartion time (test code = 8854110869) 0.31 s MV Peak A Jovany (test code = 4281732365) 58.1 cm/s E/A ratio (test code = 2492125734) ratio MV E/e' septal (test code = 0827601707) 5.7 cm/s Tapse (test code = 6840766651) 1.60 cm LVOT stroke volume (test code = 3417649456) 52.10 cm3 LVOT peak jovany (test code = 3938521566) 110.6 cm/s LVOT mn grad (test code = 3331568181) mmHg AV LVOT peak gradient (test code = 3626716839) mmHg LVOT peak VTI (test code = 1908798828) 17.4 cm LV V1 mean (test code = 8474551706) 66.10 cm/s Aortic valve mean velocity (test code = 1437974044) 73.0 cm/s Ao peak jovany (test code = 9307105065) 124.6 cm/s Ao VTI (test code = 6815647031) 18.6 cm AV area by cont VTI (test code = 1555405987) 2.8 cm2 AV area peak jovany (test code = 8342634100) 2.7 cm2 Ao max PG (test code = 4636334446) 6.20 mm[Hg] AV peak gradient (test code = 8390205155) mmHg AV valve area (test code = 7205112653) 2.80 cm2 AV mean gradient (test code = 9092804197) mmHg Radiology Study observation (narrative) (test code = 78983-4) JUAN ALBERTO (test code = JUAN ALBERTO) [...] mL of Lumason [facility] 12:50:31* Test Item Value Reference Range Interpretation Comme nts POCT GLU (test code = 7883721969) 141 mg/dL 70-110 H Lab Interpretation (test cod e = 37712-6) [facility]normal [facility] [id number] 10:38:31* Test Item Value Reference Range Interpretation Comments TROPONIN I (test code = 2207126594) 0.003 ng/mL See_Comment [Automated message] The system [...] of biotin. Lab Interpretation (test code = 71765-8) Normal [facility]IP[facility] (67007)(TOTAL CHOLESTEROL, TRIGLYCERIDES, HDL)2021-12-29 05:56:47* Test Item Value Reference Range Interpretation Comme nts CHOL (test code = 0276595072) 168 mg/dL 120-200 HDL (test code = 6500871818) 102 mg/dL See_Comment [Automated [employer]] The system which generated this result transmitted reference range: >=40. The reference range was not used to interpret this result as normal/abnormal. HDLC RATIO (test code = 7875693935) See_Comment [Automated [employer] ge] The system which generated this result transmitted reference range: <=5.0. The reference range was not used to interpret this result as normal/abnormal. TRIG (test code = 6786175906) 55 mg/dL 30-170 LDL CHOL (test code = 60908-0) 55 mg/dL See_Comment [Automated [employer] ge] The system which generated this result transmitted reference range: <=160. The reference range was not used to interpret this result as normal/abnormal. VLDL (test code = 5889503890) 11 mg/dL 5-60 Lab Interpretation (test code = 70842-3) Normal [facility]ulating [facility]orm[facility] (TSH)2021-12-29 05:40:29* Test Item Value Reference Range Interpretation Comme nts TSH (test code = 0938039061) See_Comment Biotin has been reported to cause a negative bias, interpret results relative to patient's use of biotin. [Automated message] The system which generated this result transmitted reference range: 0.45 - 4.70 mIU/L. The reference range was not used to interpret this result as normal/abnormal. Lab Interpretation (test code = 98333-7) Normal [facility] [id number] 05:34:29* Test Item Value Reference Range Interpretation Comments TROPONIN I (test code = 6297249553) 0.006 ng/mL See_Comment [Automated message] The system [...] of biotin. Lab Interpretation (test code = 41047-8) Normal [facility]ANOL2022-[facility]10 04:43:01 ALCOHOL<10mg/dL12/28/2021 11:43 PM [facility]ORYToxic Greater than or equal to 80 mg/dL. NOTE: Whole blood values are approximately 10% to 15% lower than serum and plasma.[facility] Glycosylated Hemoglobin (A1C)2021-12-29 01:51:44* Test Item Value Reference Range Interpretation Comme nts HGB A1C (test code = 4548-4) 6.5 % 4-5.7 H JUAN ALBERTO (test code = JUAN ALBERTO) Reference RangesNormal: <5.7%Prediabetes: 5.7 - 6.4%Diabetes: > 6.5% Lab Interpretation (test code = 94779-8) Abnormal [facility]OP[facility]IN [id number] 21:26:50* Test Item Value Reference Range Interpretation Comments TROPONIN I (test code = 9713970544) 0.002 ng/mL See_Comment [Automated message] The system [...] of biotin. Lab Interpretation (test code = 28940-3) Normal [facility] HospitalN-TERMINAL [id number]-[id number] 21:23:29* Test Item Value Reference Range Interpretation Comme nts NT-proBNP (test code = 3388879259) 41 pg/mL See_Comment [Automated message] The system which generated this result transmitted reference range: <=125. The reference range was not used to interpret this result as normal/abnormal. JUAN ALBERTO (test code = JUAN ALBERTO) Biotin has been reported to cause a negative bias, interpret results relative to patient's use of biotin. Lab Interpretation (test code = 17293-0) Normal [facility] HospitalAMMONIA, [id number] 21:20:38* Test Item Value Reference Range Interpretation Comme nts AMMONIA (test code = 8178420479) 9-33 L Slight hemolysis Lab Interpretation (test code = 17572-5) Abnormal [facility]. METABOLIC PANEL (65779)2021-12-28 21:08:48* Test Item Value Reference Range Interpretation Comme nts NA (test code = 8118770566) 137 mmol/L 135-145 K (test code = 3269134743) 4.5 mmol/L 3.5-5 CL (test code = 9476332671) 97 mmol/L 98-108 L CO2 TOTAL (test code = 5320003254) 29 mmol/L 23-31 AGAP (test code = 4113235514) 2-16 BUN (test code = 4611141882) 10 mg/dL 7-23 GLUCOSE (test code = 4379597229) 188 mg/dL 70-110 H CREATININE (test code = 3256549422) 0.58 mg/dL 0.6-1.25 L TOTAL BILI (test code = 9210984381) 0.8 mg/dL 0.1-1.1 CALCIUM (test code = 3619091207) 10.5 mg/dL 8.6-10.6 T PROTEIN (test code = 1722764919) 7.6 g/dL 6.3-8.2 ALBUMIN (test code = 8832921422) 4.5 g/dL 3.5-5 ALK PHOS (test code = 2745529777) 107 U/L 34-122 ALTv (test code = 1742-6) 66 U/L 5-50 H AST(SGOT) (test code = 3959116224) 96 U/L 13-40 H eGFR (test code = 5019753363) mL/min/1.73m2 JUAN ALBERTO (test code = JUAN [...] imaging tests). Lab Interpretation (test code = 21895-0) Abnormal [facility] HospitalPROTHROMBIN TIME / [id number] 21:01:25* Test Item Value Reference Range Interpretation Comme nts PROTIME PATIENT (test code = 5964-2) See_Comment [Automated batterii] The system which generated this result transmitted reference range: 12.0 - 14.7 Seconds. The reference range was not used to interpret this result as normal/abnormal. INR (test code = 6301-6) Normal INR <1.1; Warfarin Therapeutic range 2.0 to 3.0 or 2.5 to 3.5, depending upon the indications. Lab Interpretation (test code = 74481-1) Normal [facility] HospitalCBC WITH [id number] 20:54:03* Test Item Value Reference Range Interpretation Comme nts WBC (test code = 6690-2) See_Comment [Automated [employer]] The system which generated this result transmitted reference range: 4.20 - 10.70 10*3/?L. The reference range was not used to interpret this result as normal/abnormal. RBC (test code = 789-8) See_Comment [Automated [employer]] The system which generated this result transmitted [...] 34.2 g/dL 31.2-35 RDW-SD (test code = 63222-3) 47.8 fL 38.5-51.6 RDW-CV (test code = 788-0) 13.3 % 12.1-15.4 PLT (test code = 777-3) See_Comment [Automated [employer] ge] The system which generated this result transmitted reference range: 150 - 328 10*3/?L. The reference range was not used to interpret this result as normal/abnormal. MPV (test code = 28653-3) 8.6 fL 9.8-13 L NRBC/100 WBC (test code = 0186569076) See_Comment [Automated [employer] ss[employer]] The system which generated this result transmitted reference range: 0.0 - 10.0 /100 WBCs. The reference range was not used to interpret this result as normal/abnormal. NRBC x10^3 (test code = 5016389063) See_Comment [Automated [employer] ge] The system which generated this result transmitted reference range: 10*3/?L. The reference range was not used to interpret this result as normal/abnormal. GRAN MAT (NEUT) % (test code = 770-8) 64.1 % IMM GRAN % (test code = 5887038129) 0.40 % LYMPH % (test code = 736-9) 16.6 % MONO % (test code = 5905-5) 17.2 % EOS % (test code = 713-8) 0.2 % BASO % (test code = 706-2) 1.5 % GRAN MAT x10^3(ANC) (test code = 2560432850) 3.47 10*3/uL 1.99-6.95 IMM GRAN x10^3 (test code = 9565049647) 0-0.06 LYMPH x10^3 (test code = 731-0) 0.90 10*3/uL 1.09-3.23 L MONO x10^3 (test code = 742-7) 0.93 10*3/uL 0.36-1.02 EOS x10^3 (test code = 711-2) 0.06-0.53 L BASO x10^3 (test code = 704-7) 0.08 10*3/uL 0.01-0.09 Lab Interpretation (test code = 16275-4) Abnormal [facility] HospitalEthanol [id number] 21:08:00* Test Item Value Reference Range Interpretation Comme nts Ethanol (test code = ETOH) < 3 mg/dL The pharmacologi yudy response to blood alcohol levels mayvary from individual to individual. The fatal concentrationhas been reported to be >400mg/dL. Complete Blood Count Auto [id number] 17:33:00* Test Item Value Reference Range Interpretation [...] = NRBCP) 0 % UA, Urinalysis Rflx Cult/[id number] 17:33:00* Test Item Value Reference Range Interpretation Comme nts Color,Urine (test code = UCOL) Dark Yellow Yellow A Clarity,Urine (test code = UCLAR) Clear Clear Ph, Urine (test code = UPH) 6.5 5.0-9.0 N Specific [place],Urine (test code = USG) 1.015 1.005-1.030 N [...] = ULEU) Trace mg/dL Negative A Urine Nodgffwfyev0763-89-20 17:33:00* Test Item Value Reference Range Interpretation Comme nts RBC,Urine (test code = URBCUF) None Seen /HPF 0-2 WBC,Urine (test code = UWBCUF) 0-5 /HPF 0-5 Epithelial Cell,Urine (test code = UECUF) 0-5 /HPF 0-5 Casts,Urine (test code = UCASTUF) None Seen /LPF None Seen Bacteria,Urine (test code = UBACTUF) None Seen /hpf None Seen Drug Screen,Cjukd6609-07-43 17:33:00* Test Item Value Reference Range Interpretation [...] code = UPROP) Negative Negative Comprehensive Metabolic Bxapx7822-17-04 17:33:00* Test Item Value Reference Range Interpretation [...] 101 U/L 46-116 N Sars-CoV-2/FLU A/B RSV [id number] 17:31:00* Test Item Value Reference Range Interpretation [...] SARS-CoV-2 PCR Result:) Negative by RT-PCR Drug Screen,Vxgkf2343-89-38 17:20:00* Test Item Value Reference Range Interpretation [...] UPROP) Negative Negative Complete Blood Count Auto [id number] 17:14:00* Test Item Value Reference Range Interpretation [...] code = NRBCP) 0 % Comprehensive Metabolic [id number] 17:14:00* Test Item Value Reference Range Interpretation [...] = ALP) 207 U/L 46-116 H Ethanol [id number] 17:14:00* Test Item Value Reference Range Interpretation Comme nts Ethanol (test code = ETOH) 192 mg/dL Complete Blood Count Auto [id number] 20:20:00* Test Item Value Reference Range Interpretation [...] code = NRBCP) 0 % Comprehensive Metabolic Mtvcy0743-07-05 20:20:00* Test Item Value Reference Range Interpretation [...] = ALP) 189 U/L 46-116 H Ethanol [id number] 20:20:00* Test Item Value Reference Range Interpretation Comme nts Ethanol (test code = ETOH) 10 mg/dL Sars-CoV-2/FLU A/B RSV [id number] 20:20:00* Test Item Value Reference Range Interpretation [...] Negative by Nucleic Acid Amplification UA, Urinalysis Xfdfmicimxt7945-53-81 20:20:00* Test Item Value Reference Range Interpretation Comme nts Color,Urine (test code = UCOL) Yellow Y Clarity,Urine (test code = UCLAR) Clear Clear PH,Urine (test code = UPH.XX) 7.0 5.5-8.5 Specific [place],Urine (test code = USG) 1.020 1.005-1.030 N [...] code = ULEU) Negative cells/uL Negative Drug Screen,Tllsw7280-97-97 20:20:00* Test Item Value Reference Range Interpretation [...] RESULT TO MICHAELA TRACY CT head/brain wo [facility] [address] [place] [address] Patient Name: Walt Velazquez Medical Record#: [id number] Address: Homeless City/State/Zip: [place] [address]: Vinnie Navarro MD Phone: Insurance: Self Pay /Age/Sex: 1970/50/M Admit/Reg Date: 09/17/[address]: Vinnie Navarro MD [facility]: [facility]/ PCP: Md KERWIN Flores Date of Service: 09/17/21 Order (s): CT head/brain wo con CPT Code: 38981 Report Number: [id number] Reason for Exam: Altered mental status Location [...] Karen Jay MD 09/17/2021 6:42 PM CDTWorkstation: [id number] Dictated By: Karen Sanders MD 09/17/211824 Signed By: Karen Sanders MD 09/17/211824 TD/TT: 09/17/211824 Tech: ES135 cc: JOSEE; GENESIS* Vinnie Navarro MD; Pcp-Md KERWIN Stiles"
--- NOTE | 2023-09-16 11:08 | ER ---
Nurse's Notes [facility] Name: Walt Velazquez Age: 52 yrs Sex: Male : 1970 Arrival Date: 09/16/2023 Time: 09:22 Bed IW10 Private MD: Diagnosis: Alcohol dependence with withdrawal, uncomplicated;Chest pain, unspecified Presentation: 09/15 09:30 Chief complaint: EMS states: Toned out for CP post release from retirement this morning, hx jl7 of alcohol dependence, drinks more than 12 pack of 16 oz beers per day, last drink 3 days ago. Pt presents with tremors in triage. Midsternal CP, pressure, rated 6/10. Coronavirus screen: At this time, the client does not indicate any symptoms associated with coronavirus-19. Ebola Screen: No symptoms or risks identified at this time. Initial Sepsis Screen: Does the patient meet any 2 criteria? HR > 90 bpm. Does the patient have a suspected source of infection? No. Patient's initial sepsis screen is negative. Risk Assessment: Do you want to hurt yourself or someone else? Patient reports no desire to harm self or others. Onset of symptoms was September 16, 2023. Care prior to arrival: None. 09:30 Method Of Arrival: EMS: [facility] jl7 09:30 Acuity: LATASHA 2 jl7 Triage Assessment: :33 General: Appears in no apparent distress. uncomfortable, Behavior is calm, cooperative, jl7 appropriate for age. Pain: Complains of pain in chest Pain does not radiate. Pain currently is 6 out of 10 on a pain scale. Quality of pain is described as pressure, Pain began gradually, Is continuous. Neuro: Level of Consciousness is awake, alert, obeys commands, Oriented to person, place, time, situation. Cardiovascular: Patient's skin is warm and dry. Respiratory: Airway is patent Respiratory effort is even, unlabored, Respiratory pattern is regular, symmetrical. Derm: Skin is pink, warm \\T\\ dry. Historical: - Allergies: : No Known Allergies; jl7 - Home Meds: : divalproex oral [Active]; Trazodone Oral [Active]; "K2" [Active]; "K3" [Active]; jl7 - PMHx: 09:33 Alcoholism; Bipolar II; Hypertensive disorder; Parkinsons; Seizure; jl7 - Immunization history:: Adult Immunizations unknown. - Social history:: Smoking status: Patient reports the use of cigarette tobacco products, Patient uses alcohol, on a daily basis. patient/guardian reports chronic longstanding heavy alcohol consumption. - Family history:: not pertinent. - Hospitalizations: : No recent hospitalization is reported. Assessment: 09:50 Reassessment: pt not in lobby. iw Vital Signs: 09:30 BP 153 / 102; Pulse 104; Resp 17; Temp 97.9; Pulse Ox 98% ; Weight 63.5 kg; Height 5 jl7 ft. 3 in. ; Pain 610; 09:30 Body Mass Index 24.80 (63.50 kg, 160.02 cm) jl7 09:30 Pain Scale: Adult jl7 ED Course: 09:23 Patient arrived in ED. iw 09:33 Triage completed. jl7 09:33 Arm band placed on right wrist. Patient placed in waiting room, in view of staff 7 members, Patient notified of wait time. EKG done per protocol. Performed by ED Staff. Shown to ED physician. 09:36 Kaiser Marie MD is Attending Physician. rn Administered Medications: 10:30 Not Given (Patient Refused): fisggrgk13 mg IVP once jl7 10:30 Not Given (Patient Refused): ns 0.9% 500 ml IV at bolus once jl7 Outcome: 11:07 Discharge ordered by . rn 11:08 Patient left the ED. Signatures: Marita Hernandez RN RN Kaiser Marie MD MD rn Leal, Jahala, RN RN jl7 Corrections: (The following items were deleted from the chart) 09:35 09:33 Allergies: Trazodone; jl7 jl7
--- NOTE | 2023-09-16 11:08 | EDPHYS ---
Physician Documentation [facility] Name: Walt Velazquez Age: 52 yrs Sex: Male : 1970 Arrival Date: 09/16/2023 Time: 09:22 Bed [id number] Private MD: ED Physician Kaiser Marie HPI: 09/15 10:51 This 52 yrs old Male presents to ER via EMS with complaints of Chest Pain, rn Alcohol Withdrawal. 10:51 Patient reports just got out of correction, drinks daily, was having chest pain and feels rn shaky. Onset: The symptoms/episode began/occurred at an unknown time. Severity of symptoms: At their worst the symptoms were mild in the emergency department the symptoms are unchanged. The patient has experienced similar episodes in the past. The patient has not recently seen a physician. Denies trauma. Historical: - Allergies: 09:33 No Known Allergies; jl7 - Home Meds: 09:33 divalproex oral [Active]; Trazodone Oral [Active]; "K2" [Active]; "K3" [Active]; jl7 - PMHx: 09:33 Alcoholism; Bipolar II; Hypertensive disorder; Parkinsons; Seizure; jl7 - Immunization history:: Adult Immunizations unknown. - Social history:: Smoking status: Patient reports the use of cigarette tobacco products, Patient uses alcohol, on a daily basis. patient/guardian reports chronic longstanding heavy alcohol consumption. - Family history:: not pertinent. - Hospitalizations: : No recent hospitalization is reported. ROS: 10:51 Constitutional: Negative for fever, chills, and weight loss, Cardiovascular: Positive rn for chest pain Respiratory: Negative for shortness of breath, cough, wheezing, and pleuritic chest pain, Abdomen/GI: Negative for abdominal pain, nausea, vomiting, diarrhea, and constipation, MS/Extremity: Negative for injury and deformity, Skin: Negative for injury, rash, and discoloration, Neuro: Negative for headache, weakness, numbness, tingling, and seizure, Exam: 10:51 Constitutional: This is a well developed, well nourished patient who is awake, alert, rn disheveled, no acute distress ENT: Dry mucous membranes Cardiovascular: Tachycardic, regular Respiratory: No increased work of breathing, no retractions or nasal flaring. Abdomen/GI: Soft, nontender Neuro: Awake and alert, GCS 15, oriented to person, place, time, and situation. Cranial nerves II-XII grossly intact. Motor strength 5/5 in all extremities. Sensory grossly intact. Cerebellar exam normal. Normal gait. Vital Signs: 09:30 BP 153 / 102; Pulse 104; Resp 17; Temp 97.9; Pulse Ox 98% ; Weight 63.5 kg; Height 5 jl7 ft. 3 in. ; Pain 6/10; 09:30 Body Mass Index 24.80 (63.50 kg, 160.02 cm) jl7 09:30 Pain Scale: Adult jl7 MDM: 09:36 Patient medically screened. rn 11:06 Differential Diagnosis Alcohol withdrawal, chest pain, dehydration. Data reviewed: rn vital signs, nurses notes. Refusal of service: The patient/guardian displays adequate decision making capability and despite a detailed discussion of alternatives, benefits, risks, and consequences refuses: all lab tests, Medications, all X-rays, EKG. ED course: Patient declines all intervention and testing. Declines medication. Understands risks of leaving. Patient does not want to wait and insist on leaving.. 09/15 09:38 Order name: EKG; Complete Time: 09:38 rn 09/15 09:38 Order name: EKG - Nurse/Tech; Complete Time: 09:57 rn Administered Medications: 10:30 Not Given (Patient Refused): [id number] mg IVP once jl7 10:30 Not Given (Patient Refused): ns 0.9% 500 ml IV at bolus once jl7 Disposition Summary: 09/16/23 11:07 Discharge Ordered Notes: Location: Home rn Problem: new rn Symptoms: have improved rn Condition: Stable rn Diagnosis - Alcohol dependence with withdrawal, uncomplicated rn - Chest pain, unspecified rn Followup: rn - With: Private Physician - When: As needed - Reason: Recheck today's complaints, Re-evaluation by your physician Discharge Instructions: - Discharge Summary Sheet rn - Alcohol Withdrawal Syndrome rn - Nonspecific Chest Pain, Adult rn Forms: - Medication Reconciliation Form rn - Thank You Letter rn - Antibiotic software engineer intern - Prescription Opioid Use rn - Patient Portal Instructions rn - Leadership Thank You Letter rn Signatures: Dispatcher [employer] EDMS Kaiser Marie MD MD rn Leal, Jahala, RN RN jl7 Corrections: (The following items were deleted from the chart) 09:35 09:33 Allergies: Trazodone; mario martin 10:29 09:38 Cardiac monitoring ordered. jose angel martin 10:30 09:38 IV Saline Lock ordered. jose angel martin 10:30 09:38 Labs collected and sent ordered. jose angel martin 10:30 09:38 Oxygen Per Protocol ordered. jose angel martin 10:30 09:38 O2 Sat Monitoring ordered. jose angel martin 10:33 09:38 CBC+H.LAB.BRZ ordered. EDMS EDMS 10:34 09:38 BASIC METABOLIC PANEL+C.LAB.BRZ ordered. EDMS EDMS 10:34 09:38 HEPATIC FUNCTION+C.LAB.BRZ ordered. EDMS EDMS 10:34 09:38 PROBNP+C.LAB.BRZ ordered. EDMS EDMS 10:34 09:38 Troponin High Sensitivity+C.LAB.BRZ ordered. EDMS EDMS 10:56 09:38 Chest Single View+RAD.RAD.BRZ ordered. EDMS EDMS
[2023-09-16 12:15] VITALS: BP 153/102; TEMP 97.9; O2SAT 98
--- NOTE | 2023-09-17 14:02 | EKG ---
Test Date: 2023-09-16 Test Time: 09:17:39 Engineering Drafter: YVONNE MEASUREMENT RESULTS: Intervals: Rate: 99 ID: [id number] QRSD: 70 QT: 320 QTc: 410 [place]: P: 65 ID: [id number] QRS: 55 T: 48 INTERPRETIVE STATEMENTS: Normal sinus rhythm Normal ECG Compared to ECG 08/25/2023 16:48:32 No significant changes Electronically Signed On 09-17-23 13:59:58 CDT by Cristhian Hernandez
== END ==
LOC: ER 09:22
DX: F10.239 Alcohol dependence with withdrawal, unspecified (principal); F31.81 Bipolar II disorder
CPT/HCPCS: 93005

== ENCOUNTER 2023-09-21 09:18 | Emergency (ER) | payer SELFPAY ==
--- OUTSIDE RECORDS SUMMARY | 2023-09-21 09:24 | XMS REPORT | Continuity of Care Document ---
Author Name Unknown Address [address] [facility] [place] [address] [facility] [address] [facility] [place] [address] Care Team Providers Care Mechanical Engineering Specialist Name Role Phone Pcp-None Primary Care Physician Unavailab HEMANT Adame Attending Clinician Unavailable Hemant Klein MD Attending Clinician [phone] Pan Pinto Attending Clinician Unavailab JESSICA Gallardo Attending Clinician Unavailable Rayray Driscoll MD Attending Clinician [phone] Jessica Prado MD Attending Clinician [phone] Oswald Murphy MD Attending Clinician [phone] DIYA CHOWDHURY Attending Clinician Unavailab Diya Mackey DO Attending Clinician [phone] Fidel Cuellar Attending Clinician Unavailable DIRK YARBROUGH Attending Clinician Unavailable Leticia Rowland Attending Clinician [phone] Dirk Yarbrough MD Attending Clinician [phone] Faye Portillo LVN Attending Clinician [phone] Pia Reddy Attending Clinician [phone] Vinnie Navarro Attending Clinician Unavailable OSWALD MURPHY Admitting Clinician Unavailable Oswald Murphy MD Admitting Clinician [phone] DIYA CHOWDHURY Admitting Clinician UnavailLeticia Gaytan Admitting Clinician Unavailable JESSICA PRADO Admitting Clinician Unavailable Jessica Prado MD Admitting Clinician [phone] Payers Payer Name Policy Type Policy Number Effective Date Expirati on Date Source [facility] [id number] 2022 00:00:00 Problems Condition Name Condition Details Condition Category Status Onset Date Resolution Date Last Treatment Date Treating Clinician Comments Source Alcohol withdrawal syndrome with complicati on Alcohol withdrawal syndrome with complicati on Disease Active 08-10 00:00: 00 [facility] Type 2 diabetes mellitus with other specified complicati on Type 2 diabetes mellitus with other specified complicati on Disease Active 12-29 00:00: 00 [facility] Dyslipidem ia Dyslipidem ia Disease Active 12-29 00:00: 00 [facility] Chest pain, unspecifie d type Chest pain, unspecifie d type Disease Active 12-28 00:00: 00 [facility] Priapism Priapism Disease Active 2013-06 1-06 00:00: 00 [facility] Allergies, Adverse Reactions, Alerts Allergy Name Allergy Type Status Severity Reaction(s) Onset Date Inactive Date Treating Clinician Comments Source No Known Drug Allergie s DA Active U 4-25 00:00: 00 [facility] No Known Drug Allergie s DA Active U 0 9-16 00:00: 00 [facility] No Known Drug Allergie s DA Active U 0 3-29 00:00: 00 [facility] No Known Drug Allergie s DA Active U 2019-06 2-16 00:00: 00 [facility] No Known Drug Allergie s DA Active U 2019-06 2-15 00:00: 00 [facility] No Known Drug Allergie s DA Active U 2019-06 2-02 00:00: 00 [facility] Trazodon e Propensi ty to adverse reaction s Active Other - See comments 10-06 00:00: 00 [facility] TRAZODON E DRUG INGREDI Active Other-Cmnt 10-06 00:00: 00 [facility] Social History Social Habit Start Date Stop Date Quantity Comments Source History of tobacco use Cigarette Smoker [facility] Exposure to SARS-CoV-2 (event) 2022-11-01 00:00:00 2022-11-11 13:57:00 Not sure [facility] Tobacco use and exposure 2022-08-10 00:00:00 2022-08-10 00:00:00 User of smokeless tobacco [facility] Alcohol intake 2022-08-10 00:00:00 2022-08-10 00:00:00 Current drinker of alcohol (finding) [facility] Tobacco Comment 2022-08-10 00:00:00 2022-08-10 00:00:00 1/2 a pack a day [facility] Sex Assigned At 1970 00:00:00 1970 00:00:00 [facility] Smoking Status Start Date Stop Date Source Smokes tobacco daily 2022-08-10 00:00:00 [facility] Medications Ordered Medication Name Filled Medication Name Start Date Stop Date Current Medication? Ordering Clinician Indication Dosage Frequency Signature (SIG) Comments Components Source NaCl 0.9% (NS) bolus infusion 1,000 mL 11-11 19:45: 00 11-11 20:23 :00 No 1000mL at 999 mL/hr, 1,000 mL, IV Piggyback, ONCE, 1 dose, On Thu11/11/22 at 1445, STAT [facility] multivitami n tablet 1 tablet 08-12 15:00: 00 Yes 1{tbl} 1 tablet, Oral, DAILY, First dose on Thu08/12/22 at 0900, Until Discontinu ed, Routine [facility] foLIC acid (FOLATE) tablet 1 mg 08-12 15:00: 00 Yes 1mg 1 mg, Oral, DAILY, First dose on Thu08/12/22 at 0900, Until Discontinu ed, Routine [facility] foLIC acid 1 mg tablet 08-12 00:00: 00 09-12 04:59 :00 No [id number] 1mg Take 1 tablet by mouth in the morning for 30 days. [facility] oxazepam (SERAX) capsule 15 mg 08-11 [...] Thu08/13/22 at 0600, Routine [Order 2 End] [facility] thiamine (VITAMIN B1) tablet 100 mg 08-11 16:15: 00 Yes 100mg 100 mg, Oral, DAILY, First dose on Thu08/11/22 at 1015, Until Discontinu ed, Routine [facility] enoxaparin (LOVENOX) injection 40 mg 08-10 23:00: 00 Yes 40mg 40 mg, Subcutaneo us, DAILY, First dose on Thu08/10/22 at 1700, Until Discontinu ed, Routine [facility] NaCl 0.9% (NS) IV infusion 1,000 mL 08-10 15:00: 00 Yes 1000mL at 125 mL/hr, IV Infusion, CONTINUOUS , Starting on Thu08/10/22 at 0900, Until Discontinu ed, Routine [facility] foLIC acid (FOLATE) 5 mg in NaCl 0.9% (NS) piggyback 08-10 15:00: 00 08-11 16:14 :47 No 5mg IV Piggyback, DAILY, First dose on Thu08/10/22 at 0900, Until Discontinu ed, 50 mL [facility] thiamine (VITAMIN B1) 100 mg in NaCl 0.9% (NS) piggyback 08-10 15:00: 00 08-10 16:08 :00 No 100mg IV Piggyback, DAILY, 1 dose, First dose on Thu08/10/22 at 0900, 50 mL [facility] LORazepam (ATIVAN) injection 2 mg 08-10 14:52: 57 Yes 2mg 2 mg, Slow IV Push, Q4HPRN, Starting on 08/10/22 at 0852, Until Discontinu ed, Routine, Seizures, Agitation, Anxiety [facility] Sliding Scale Insulin-Reg ular + Fsbg Testing 08-10 13:30: 00 Yes Subcutaneo us, AC+HS, First dose on Thu08/10/22 at 0730, Until Discontinu ed, Routine [facility] oxazepam (SERAX) capsule 15 mg 08-10 12:08: 05 Yes 15mg 15 mg, Oral, Q4HPRN, Starting on 08/10/22 at 0608, Until Discontinu ed, Routine, Only while awake for DBP equal to or greater than 100, HR equal to or greater than 100. [facility] dextrose 10% (D10W) bolus infusion 250 [...] unable to swallow or has mental changes. [facility] ondansetron (ZOFRAN (PF)) injection 4 mg 08-10 12:02: 53 Yes 4mg 4 mg, Slow IV Push, Q6HPRN, Starting on Thu08/10/22 at 0602, Until Discontinu ed, Routine, Nausea and Vomiting (N/V) [facility] ibuprofen (MOTRIN IB) tablet 200 mg 08-10 12:02: 45 Yes 200mg 200 mg, Oral, Q6HPRN, Starting on Thu08/10/22 at 0602, Until Discontinu ed, Routine, Pain (scale 1-3) [facility] NaCl 0.9% (NS) bolus infusion 1,000 mL 08-10 10:15: 00 08-10 13:00 :00 No 1000mL at 999 mL/hr, 1,000 mL, IV Infusion, ONCE, 1 dose, On Thu08/10/22 at 0415, STAT [facility] LORazepam (ATIVAN) injection 0.5 mg 08-10 09:15: 00 08-10 09:19 :00 No .5mg 0.5 mg, Slow IV Push, ONCE, 1 dose, On Thu08/10/22 at 0315, STAT [facility] LORazepam (ATIVAN) injection 1 mg 08-10 08:00: 00 08-10 07:05 :00 No 1mg 1 mg, Slow IV Push, ONCE NOW, 1 dose, On Thu08/10/22 at 0200, STAT [facility] thiamine (VITAMIN B1) injection 100 mg 08-10 06:45: 00 08-10 06:52 :00 No 100mg 100 mg, Intravenou s, ONCE, 1 dose, On 08/10/22 at 0045, JACIEL [facility] LORazepam (ATIVAN) injection 1 mg 08-10 05:15: 00 08-10 05:22 :00 No 1mg 1 mg, Slow IV Push, ONCE, 1 dose, On 08/09/22 at 2315, STAT [facility] ketorolac (TORADOL) injection 15 mg 2021-06 16:00: 00 04-06 14:50 :00 No 15mg 15 mg, Slow IV Push, ONCE, 1 dose, [facility]06[facility]22 at 1100[facility] (PF[facility] 4 mg 2021-06 15:45: 00 04-06 14:50 :00 No 4mg 4 mg, Slow IV Push, ONCE, 1 dose, On 04/06/22 at 1045, [facility] oxazepam (SERAX) capsule 15 mg 12-31 06:28: 17 01-01 06:29 :00 No 15mg 15 mg, Oral, Q12H TAPER, 2 doses, First dose on Thu12/31/21 at 0130, Last dose on Thu12/31/21 at 1330, Routine [facility] multivitami n tablet 12-31 00:00: 00 Yes [id number] 1{tbl} Take 1 tablet by mouth in the morning. [facility] thiamine 100 mg tablet 12-31 00:00: 00 Yes [id number] 100mg Take 1 tablet by mouth in the morning. [facility] aspirin 81 mg chewable tablet 12-31 00:00: 00 Yes [id number] 81mg Take 1 tablet by mouth in the morning. [facility] multivitami n tablet 12-31 00:00: 00 Yes [id number] 1{tbl} Take 1 tablet by mouth in the morning. [facility] thiamine 100 mg tablet 12-31 00:00: 00 Yes [id number] 100mg Take 1 tablet by mouth in the morning. [facility] aspirin 81 mg chewable tablet 2021-0 12-31 00:00: 00 Yes [id number] 81mg Take 1 tablet by mouth in the morning. [facility] multivitami n tablet 2021-0 12-31 00:00: 00 Yes [id number] 1{tbl} Take 1 tablet by mouth in the morning. [facility] thiamine 100 mg tablet 0 12-31 00:00: 00 Yes [id number] 100mg Take 1 tablet by mouth in the morning. [facility] aspirin 81 mg chewable tablet 0 12-31 00:00: 00 Yes [id number] 81mg Take 1 tablet by mouth in the morning. [facility] multivitami n tablet 0 12-31 00:00: 00 Yes [id number] 1{tbl} Take 1 tablet by mouth in the morning. [facility] thiamine 100 mg tablet 2021-0 12-31 00:00: 00 Yes [id number] 100mg Take 1 tablet by mouth in the morning. [facility] aspirin 81 mg chewable tablet 12-31 00:00: 00 Yes [id number] 81mg Take 1 tablet by mouth in the morning. [facility] multivitami n tablet 0 12-31 00:00: 00 Yes [id number] 1{tbl} Take 1 tablet by mouth in the morning. [facility] thiamine 100 mg tablet 0 12-31 00:00: 00 Yes [id number] 100mg Take 1 tablet by mouth in the morning. [facility] aspirin 81 mg chewable tablet 0 12-31 00:00: 00 Yes [id number] 81mg Take 1 tablet by mouth in the morning. [facility] multivitami n tablet 2021-0 12-31 00:00: 00 Yes [id number] 1{tbl} Take 1 tablet by mouth in the morning. [facility] thiamine 100 mg tablet 12-31 00:00: 00 Yes [id number] 100mg Take 1 tablet by mouth in the morning. [facility] aspirin 81 mg chewable tablet 12-31 00:00: 00 Yes [id number] 81mg Take 1 tablet by mouth in the morning. [facility] foLIC acid 1 mg tablet 12-31 00:00: 00 01-31 04:59 :00 No [id number] 1mg Take 1 tablet by mouth in the morning for 30 days. [facility] foLIC acid 1 mg tablet 12-31 00:00: 00 01-31 04:59 :00 No [id number] 1mg Take 1 tablet by mouth in the morning for 30 days. [facility] foLIC acid 1 mg tablet 12-31 00:00: 00 01-31 04:59 :00 No [id number] 1mg Take 1 tablet by mouth in the morning for 30 days. [facility] metFORMIN 500 mg tablet 12-30 00:00: 00 Yes [id number] 500mg Take 1 tablet by mouth in the morning and 1 tablet in the evening. Take with meals. [facility] metFORMIN 500 mg tablet 12-30 00:00: 00 Yes [id number] 500mg Take 1 tablet by mouth in the morning and 1 tablet in the evening. Take with meals. [facility] metFORMIN 500 mg tablet 12-30 00:00: 00 Yes [id number] 500mg Take 1 tablet by mouth in the morning and 1 tablet in the evening. Take with meals. [facility] metFORMIN 500 mg tablet 12-30 00:00: 00 Yes [id number] 500mg Take 1 tablet by mouth in the morning and 1 tablet in the evening. Take with meals. [facility] metFORMIN 500 mg tablet 12-30 00:00: 00 Yes [id number] 500mg Take 1 tablet by mouth in the morning and 1 tablet in the evening. Take with meals. [facility] metFORMIN 500 mg tablet 12-30 00:00: 00 Yes [id number] 500mg Take 1 tablet by mouth in the morning and 1 tablet in the evening. Take with meals. [facility] aspirin chewable tablet 81 mg 12-29 14:00: 00 Yes 81mg 81 mg, Oral, DAILY, First dose on 12/29/21 at 0900, Until Discontinu ed, Routine [facility] sulfur hexafluorid e microsphr (LUMASON) injection 5 mL 12-29 13:45: 00 12-29 13:45 :00 No [id number] 5mL 5 mL, Intravenou s, ONCE, 1 dose, On 12/29/21 at 0845, Routine
economics faculty member approving Restricted medication : STEFANIE GORMAN [facility] enoxaparin (LOVENOX) injection 40 mg 12-29 13:00: 00 Yes 40mg 40 mg, Subcutaneo us, Q24H, First dose on 12/29/21 at 0800, Until Discontinu ed, Routine [facility] Sliding Scale Insulin - Lispro (HumaLOG) + Fsbg Testing 12-29 13:00: 00 Yes Subcutaneo us, TID MEALS+HS, First dose on 12/29/21 at 0800, Until Discontinu ed, Routine [facility] diazePAM (VALIUM) injection 10 mg 12-29 05:30: 00 12-29 04:40 :00 No 10mg 10 mg, Intravenou s, ONCE, 1 dose, On 12/29/21 at 0030, Routine [facility] diazePAM (VALIUM) injection 10 mg 12-29 04:15: 00 12-29 03:17 :00 No 10mg 10 mg, Intravenou s, ONCE, 1 dose, On 12/28/21 at 2315, Routine [facility] diazePAM (VALIUM) injection 5 mg 12-29 03:45: 01 Yes 5mg 5 mg, Intravenou s, QIDPRN, Starting on 12/28/21 at 2245, Until Discontinu ed, Routine, Seizures, Agitation [facility] foLIC acid (FOLATE) tablet 1 mg 12-29 03:45: 00 Yes 1mg 1 mg, Oral, DAILY, First dose on 12/28/21 at 2245, Until Discontinu ed, Routine [facility] thiamine (VITAMIN B1) tablet 100 mg 12-29 03:45: 00 Yes 100mg 100 mg, Oral, DAILY, First dose (after last modificati on) on 12/28/21 at 2245, Until Discontinu ed, Routine [facility] glucagon (GLUCAGEN DIAGNOSTIC KIT) injection 1 mg 12-29 03:42: 19 Yes 1mg 1 mg, Intramuscu lar, PRN, Starting on 12/28/21 at 2242, Until Discontinu ed, JACIEL, Blood Glucose < or = 70 mg/dL and patient is unable to swallow or has mental changes. [facility] dextrose 10% (D10W) bolus infusion 250 [...] blood glucose is < 80 mg/dL, repeat.
[facility] LORazepam (ATIVAN) injection 1 mg 12-29 03:30: 00 12-29 02:32 :00 No 1mg 1 mg, Intravenou s, ONCE, 1 dose, On 12/28/21 at 2230, Routine
Is the medication being used for status epilepticu s? No [facility] oxazepam (SERAX) capsule 15 mg 12-29 00:28: 20 Yes 15mg 15 mg, Oral, Q4HPRN, Starting on 12/28/21 at 1928, Until Discontinu ed, Routine, Only while awake for DBP equal to or greater than 100, HR equal to or greater than 100. [facility] ondansetron (ZOFRAN (PF)) injection 4 mg 12-29 00:23: 47 Yes 4mg 4 mg, Slow IV Push, Q6HPRN, Starting on 12/28/21 at 1923, Until Discontinu ed, Routine, Nausea and Vomiting (N/V) [facility] acetaminoph en (TYLENOL) tablet 650 mg 12-29 00:23: 37 Yes 650mg 650 mg, Oral, Q6HPRN, Starting on 12/28/21 at 1923, Until Discontinu ed, Routine, Pain (scale 1-3), Temp > 38.5 C [facility] chlordiazeP OXIDE (LIBRIUM) capsule 25 mg 12-28 23:15: 00 12-28 23:24 :00 No 25mg 25 mg, Oral, ONCE, 1 dose, On 12/28/21 at 1815, JACIEL [facility] NaCl 0.9% (NS) bolus infusion 2,000 mL 12-28 22:45: 00 12-28 23:18 :00 No 2000mL at 999 mL/hr, 2,000 mL, IV Infusion, ONCE, 1 dose, On 12/28/21 at 1745, JACIEL [facility] LORazepam (ATIVAN) injection 1 mg 12-28 20:45: 00 12-28 20:49 :00 No 1mg 1 mg, Slow IV Push, ONCE, 1 dose, On 12/28/21 at 1545, STAT
Is the medication being used for status epilepticu s? No [facility] acetaminoph en (TYLENOL) 500 mg tablet 10-06 00:00: 00 Yes 500mg Take 1 Tab by mouth every 6 (six) hours as needed for Pain. [facility] acetaminoph en (TYLENOL) 500 mg tablet 10-06 00:00: 00 Yes 500mg Take 1 Tab by mouth every 6 (six) hours as needed for Pain. [facility] acetaminoph en (TYLENOL) 500 mg tablet 10-06 00:00: 00 Yes 500mg Take 1 Tab by mouth every 6 (six) hours as needed for Pain. [facility] acetaminoph en (TYLENOL) 500 mg tablet 10-06 00:00: 00 Yes 500mg Take 1 Tab by mouth every 6 (six) hours as needed for Pain. [facility] acetaminoph en (TYLENOL) 500 mg tablet 10-06 00:00: 00 Yes 500mg Take 1 Tab by mouth every 6 (six) hours as needed for Pain. [facility] acetaminoph en (TYLENOL) 500 mg tablet 10-06 00:00: 00 Yes 500mg Take 1 Tab by mouth every 6 (six) hours as needed for Pain. [facility] Vital Signs Vital Name Observation Time Observation Value Comments S alliglo Systolic blood pressure 2022-11-11 20:31:31 116 mm[Hg] [facility] Diastolic blood pressure 2022-11-11 20:31:31 77 mm[Hg] [facility] Heart rate 2022-11-11 20:31:31 84 /min [facility] Respiratory rate 2022-11-11 20:31:31 12 /min [facility] Oxygen saturation in Arterial blood by Pulse oximetry 2022-11-11 20:31:31 90 /min [facility] Body temperature 2022-11-11 18:49:00 37.11 Theresa [facility] Body height 2022-11-11 18:49:00 160 cm [facility] Body weight 2022-11-11 18:49:00 68.04 kg [facility] BMI 2022-11-11 18:49:00 26.57 kg/m2 [facility] Body temperature 2022-08-11 14:00:00 36.5 Theresa [facility] Systolic blood pressure 2022-08-11 10:00:00 116 mm[Hg] [facility] Diastolic blood pressure 2022-08-11 10:00:00 71 mm[Hg] [facility] Heart rate 2022-08-11 10:00:00 70 /min [facility] Respiratory rate 2022-08-11 10:00:00 16 /min [facility] Body weight 2022-08-11 10:00:00 65.499 kg [facility] BMI 2022-08-11 10:00:00 25.58 kg/m2 [facility] Oxygen saturation in Arterial blood by Pulse oximetry 2022-08-11 10:00:00 100 /min [facility] Body height 2022-08-10 22:12:00 160 cm [facility] Systolic blood pressure 2022-04-06 16:00:00 125 mm[Hg] [facility] Diastolic blood pressure 2022-04-06 16:00:00 75 mm[Hg] [facility] Heart rate 2022-04-06 16:00:00 87 /min [facility] Respiratory rate 2022-04-06 16:00:00 22 /min [facility] Oxygen saturation in Arterial blood by Pulse oximetry 2022-04-06 16:00:00 98 /min [facility] Body temperature 2022-04-06 14:41:00 37 Theresa [facility] Body height 2022-04-06 14:41:00 160 cm [facility] Body weight 2022-04-06 14:41:00 63.504 kg [facility] BMI 2022-04-06 14:41:00 24.80 kg/m2 [facility] Systolic blood pressure 2022-01-20 02:27:00 121 mm[Hg] [facility] Diastolic blood pressure 2022-01-20 02:27:00 75 mm[Hg] [facility] Heart rate 2022-01-20 02:27:00 79 /min [facility] Respiratory rate 2022-01-20 02:27:00 12 /min [facility] Oxygen saturation in Arterial blood by Pulse oximetry 2022-01-20 02:27:00 98 /min [facility] Body temperature 2022-01-19 22:19:00 36.44 Theresa [facility] Body weight 2022-01-19 22:19:00 60.328 kg [facility] BMI 2022-01-19 22:19:00 23.56 kg/m2 [facility] Systolic blood pressure 2021-12-30 20:52:00 134 mm[Hg] [facility] Diastolic blood pressure 2021-12-30 20:52:00 76 mm[Hg] [facility] Heart rate 2021-12-30 20:52:00 67 /min [facility] Body temperature 2021-12-30 20:26:00 36.67 Theresa [facility] Oxygen saturation in Arterial blood by Pulse oximetry 2021-12-30 20:26:00 99 /min [facility] Respiratory rate 2021-12-30 16:21:00 18 /min [facility] Body weight 2021-12-30 08:27:00 60.464 kg [facility] BMI 2021-12-30 08:27:00 23.61 kg/m2 [facility] Body height 2021-12-29 01:29:00 160 cm [facility] Procedures Procedure Date / Time Performed Performing Clinician Source MAGNESIUM 2022-11-11 19:05:00 Hemant Klein [facility] BASIC METABOLIC PANEL (NA, K, CL, CO2, GLUCOSE, BUN, CREATININE, CA) 2022-11-11 19:05:00 Hemant Klein [facility] ETHANOL 2022-11-11 19:05:00 Hemant Klein [facility] CBC WITH DIFF 2022-11-11 19:05:00 Hemant Klein [facility] POCT GLUCOSE (AUTOMATED) 2022-08-11 13:36:00 Arvind Prado [facility] PHOSPHORUS 2022-08-11 10:35:00 Jessica Prado [facility] MAGNESIUM 2022-08-11 10:35:00 Jessica Prado [facility] AMMONIA, PLASMA 2022-08-11 10:35:00 Jessica Prado [facility] COMP. METABOLIC PANEL ([id number]) 2022-08-11 10:35[facility] 2022-08-11 10:35:00 Osw[facility] POCT GLUCOSE (AUTOMATED) 2022-08-11 02:15:00 Arvind Prado [facility] POCT GLUCOSE (AUTOMATED) 2022-08-10 23:10:00 Arvind Prado gregoria [facility] POCT GLUCOSE (AUTOMATED) 2022-08-10 18:20:00 Arvind Prado gregoria [facility] POCT GLUCOSE (AUTOMATED) 2022-08-10 14:11:00 Arvind Prado [facility] POCT GLUCOSE (AUTOMATED) 2022-08-10 10:59:00 Gopal Driscoll [facility] COVID-19 (ID NOW RAPID TESTING) 2022-08-10 07:17:00 Rayray Driscoll [facility] LAB ONLY COVID INTERPRETATION 2022-08-10 07:17:00 Rayray Driscoll [facility] HB ECG ROUTINE & RHYTHM STRIP 2022-08-10 06:03:48 Rayray Driscoll [facility] URINALYSIS 2022-08-10 05:46:00 [facility]coll [facility] URINE DRUG (IMMUNOASSAY) - COMPREHENSIVE DRUG SCREEN W/O REFLEX 2022-08-10 05:45:00 Rayray Driscoll [facility] CREATINE KINASE 2022-08-10 05:16:00 [facility] LIP[facility] 2022-08-10 05:16:00 Rayray Driscoll [facility] MAGNESIUM 2022-08-10 05:16:00 Rayray Driscoll [facility] TROPONIN I 2022-08-10 05:16:00 Rayray Driscoll [facility] COMP. METABOLIC PANEL ([id number]) 2022-08-10 05:16:00 Rayray Driscoll [facility] ETHANOL 2022-08-10 05:16:00 Rayray Driscoll [facility] CBC WITH DIFF 2022-08-10 05:16:00 Rayray Driscoll [facility] N-TERMINAL PRO-BNP 2022-08-10 05:16:00 Rayray Driscoll [facility] CRITICAL CARE 2022-08-10 04:52:00 Rayray Driscoll [facility] XR CHEST 1 VW 2022-04-06 14:51:[address] [facility] LIPASE 2022-04-06 14:42:00 [facility] 2022-04-06 14:42:00 Diya Chowdhury Un [facility] COMP. METABOLIC PANEL ([id number]) 2022-04-06 14:42:00 Diya Chowdhury [facility] CBC WITH DIFF 2022-04-06 14:42:[address] [facility] PROTHROMBIN TIME / INR 2022-04-06 14:42:00 Diya Chowdhury [facility] ACTIVATED PARTIAL THRMPLAS NELDA 2022-04-06 14:42:00 Diya Chowdhury [facility] LACTIC ACID WHOLE BLOOD 2022-01-20 00:22:00 Leticia Baldwin [facility] URINE DRUG (IMMUNOASSAY) - COMPREHENSIVE DRUG SCREEN 2022-01-19 23:10:00 Leticia Baldwin [facility] URINALYSIS 2022-01-19 23:10:00 Leticia Baldwin [facility] TROPONIN I 2022-01-19 23:00:00 Leticia Baldwin [facility] COMP. METABOLIC PANEL (90749) 2022-01-19 23:00:00 Leticia Baldwin [facility] LITHIUM 2022-01-19 23:00:00 Leticia Baldwin [facility] ETHANOL 2022-01-19 23:00:00 Leticia Baldwin [facility] CBC WITH DIFF 2022-01-19 23:00:00 Leticia Baldwin [facility] COVID-19 (ID NOW RAPID TESTING) 2022-01-19 23:00:00 Leticia Baldwin [facility] CT HEAD WO CONTRAST 2022-01-19 22:49:00 Leticia Baldwin [facility] XR CHEST 1 VW 2022-01-19 22:41:00 Leticia Baldwin [facility] POCT GLUCOSE (AUTOMATED) 2022-01-19 22:25:00 Leticia Baldwin [facility] POCT GLUCOSE (AUTOMATED) 2021-12-30 21:55:00 Arvind Prado [facility] POCT GLUCOSE (AUTOMATED) 2021-12-30 16:21:00 Arvind Prado [facility] POCT GLUCOSE (AUTOMATED) 2021-12-30 12:30:00 Arvind Prado [facility] HEPATIC FUNCTION PANEL (15236) (ALB,T.PRO,BILI T,BU/BC,ALT,AST,ALK PHOS) 2021-12-30 09:28:00 Maira Gaitan [facility] POCT GLUCOSE (AUTOMATED) 2021-12-30 02:11:00 Arvind Prado [facility] POCT GLUCOSE (AUTOMATED) 2021-12-29 21:41:00 Arvind Pardo [facility] POCT GLUCOSE (AUTOMATED) 2021-12-29 16:37:00 Arvind Prado [facility] TRANSTHORACIC ECHO (TTE) COMPLETE W/ CONTRAST 2021-12-29 13:05:00 Jessica Prado [facility] POCT GLUCOSE (AUTOMATED) 2021-12-29 12:41:00 Arvind Prado [facility] TROPONIN I 2021-12-29 09:42:00 [place], Jessica [facility] TROPONIN I 2021-12-29 04:55:00 Jessica Prado [facility] CT HEAD WO CONTRAST 2021-12-28 21:18:22 Poppy Renteria [facility] AMMONIA, PLASMA 2021-12-28 21:00:[address] [facility] COVID-19 (ID NOW RAPID TESTING) 2021-12-28 20:42:00 Pia Renteria [facility] LAB ONLY COVID INTERPRETATION 2021-12-28 20:42:00 Pia Renteria [facility] URINE DRUG (IMMUNOASSAY) - COMPREHENSIVE DRUG SCREEN W/O REFLEX 2021-12-28 20:42:00 Pia Renteria [facility] URINALYSIS 2021-12-28 20:40[facility] 2021-12-28 20:40:00 Corina Renteria [facility] TROPONIN I 2021-12-28 20:40:00 Pia Renteria [facility] THYROID STIMULATING HORMONE 2021-12-28 20:40:00 Jessica Prado [facility] COMP. METABOLIC PANEL (26896) 2021-12-28 20:40:00 Pia Renteria [facility] LIPID PANEL (75692)(TOTAL CHOLESTEROL, TRIGLYCERIDES, HDL) 2021-12-28 20:40:00 Demetrius Langford [facility] ETHANOL 2021-12-28 20:40:00 Demetrius Langford [facility] CBC WITH DIFF 2021-12-28 20:40:00 Pia Renteria [facility] GLYCOSYLATED HEMOGLOBIN (A1C) 2021-12-28 20:40:00 Jessica Prado [facility] PROTHROMBIN TIME / INR 2021-12-28 20:40:00 Lesly Renteria [facility] XR CHEST 1 VW 2021-12-28 20:16:00 Pia Renteria [facility] HB ECG ROUTINE & RHYTHM STRIP 2021-12-28 20:04:59 Pia Renteria [facility] Encounters Start Date/Time End Date/Time Encounter Type Admission Type Attending [facility] Care Department Encounter ID Source 2021-09-17 16:45:00 Inpatient [facility] [id number] [facility] 2020-06-06 16:07:00 Inpatient [facility] [id number] [facility] 2020-06-06 06:20:00 Inpatient [facility] [id number] [facility] 2020-06-05 19:35:00 Inpatient [facility] [id number] [facility] 2020-05-23 19:53:00 Inpatient [facility] [id number] [facility] 2020-05-23 19:53:00 Inpatient [facility] [id number] [facility] 2022-11-11 13:50:00 2022-11-11 16:07:00 Emergency X HEMANT KLEIN [facility] [id number] [facility] 2022-11-11 13:50:00 2022-11-11 16:07:00 Emergency [facility] [id number] 4.2.7.2.686 [id number] [facility] 2022-10-14 20:59:00 2022-10-14 20:59:00 Emergency [facility] [id number] [facility] 2022-10-14 20:59:00 2022-10-14 20:59:00 Emergency Emergency ClareDeborah brotherschloe [facility] [id number] [facility] 2022-08-09 22:59:00 2022-08-11 13:02:00 Outpatient JSESICA GAINES [facility] [id number] [facility] 2022-08-09 22:59:00 2022-08-11 13:02:00 Emergency Rayray Driscoll [facility]el[facility] Edionwe[facility] [id number] [id number] 4.2.7.2.686 [id number] [facility] 2022-04-06 09:38:00 2022-04-06 11:42:00 Emergency X DIYA CHOWDHURY [facility] ERT [id number] [facility] 2022-04-06 09:38:00 2022-04-06 11:42:[address]dhury [facility] [id number] [id number] 4.2.7.2.686 [id number] [facility] 2022-03-07 12:38:00 2022-03-07 12:38:00 Emergency [facility] [id number] [facility] 2022-03-07 12:38:00 2022-03-07 12:38:00 Emergency Emergency Fidel Cuellar [facility] [id number] [facility] 2022-01-19 17:18:00 2022-01-19 22:00:00 Emergency X DIRK YARBROUGH [facility] ERT [id number] [facility] 2022-01-19 17:18:00 2022-01-19 22:00:00 Emergency Leticia Baldwin Julio C [facility] [id number] 350.1.13.10 4.2.7.2.686 [id number] [id number] [facility] 2021-12-31 00:00:00 2021-12-31 00:00:00 Transition of Care Faye Portillo 1.2840.114 350.1.13.10 4.2.7.2.686 [id number] [facility] 2021-12-28 14:53:00 2021-12-30 17:42:00 Inpatient X JESSICA PRADO [facility] MARGO [id number] [facility] 2021-12-28 14:53:00 2021-12-30 17:42:00 Hospital Encounter Pia Renteria Jelani [facility] [id number] [id number] 4.2.7.2.686 [id number] [facility] 2021-09-17 16:47:00 2021-09-17 16:47:00 Emergency [facility] [id number] [facility] 2020-06-06 16:07:00 2020-06-06 16:07:00 Emergency [facility] [id number] [facility] Results Test Description Test Time Test Comments Results Resul t Comments Source ETHANOL 2022-11-11 19:45:56 ALCOHOL<10mg/dL0 11/11/2022 2:45 PM [facility]<10 Zoslddhw22-247 Toxic>100 Depression of DECK ENGINEER>400 [facility] 19:41:47* Test Item Value Reference Range Interpretation Comme nts MAGNESIUM (test code = 8146892497) 1.8 mg/dL 1.7-2.4 Lab Interpretation (test cod e = 33522-7) Normal [facility] WITH [id number] 19:25:26* Test Item Value Reference Range Interpretation [...] 33.9 g/dL 31.2-35.0 RDW-SD (test code = 00911-1) 46.0 fL 38.5-51.6 RDW-CV (test code = 788-0) 13.5 % 12.1-15.4 PLT (test code = 777-3) 237 See_Comment [Automated messa ge] The system which generated this result transmitted reference range: 150 - 328 10*3/?L. The reference range was not used to interpret this result as normal/abnormal. MPV (test code = 25389-0) 8.9 fL 9.8-13.0 L NRBC/100 WBC (test code = 7342366276) 0.0 See_Comment [Automated CompleteSet ssage] The system which generated this result transmitted reference range: 0.0 - 10.0 /100 WBCs. The reference range was not used to interpret this result as normal/abnormal. NRBC x10^3 (test code = 0689775344) See_Comment [Automated Lehoa ge] The system which generated this result transmitted reference range: 10*3/?L. The reference range was not used to interpret this result as normal/abnormal. GRAN MAT (NEUT) % (test code = 770-8) 71.2 % IMM GRAN % (test code = 1302075828) 0.30 % LYMPH % (test code = 736-9) 18.2 % MONO % (test code = 5905-5) 8.4 % EOS % (test code = 713-8) 1.0 % BASO % (test code = 706-2) 0.9 % GRAN MAT x10^3(ANC) (test code = 5993427785) 4.86 10*3/uL 1.99-6.95 IMM GRAN x10^3 (test code = 0177549842) 0.00-0.06 LYMPH x10^3 (test code = 731-0) 1.24 10*3/uL 1.09-3.23 MONO x10^3 (test code = 742-7) 0.57 10*3/uL 0.36-1.02 EOS x10^3 (test code = 711-2) 0.07 10*3/uL 0.06-0.53 BASO x10^3 (test code = 704-7) 0.06 10*3/uL 0.01-0.09 Lab Interpretation (test code = 31308-8) [facility] Rflx Cult/Tdlpd2535-74-27 22:20:00* Test Item Value Reference Range Interpretation Comme nts Color,Urine (test code = UCOL) Yellow Yellow Clarity,Urine (test code = UCLAR) Clear Clear Ph, Urine (test code = UPH) 7.0 5.0-9.0 N Specific Orange,Urine (test code = USG) 1.020 1.005-1.030 N [...] code = ULEU) Negative mg/dL Negative Drug Screen,Csrjm3122-99-29 22:20:00* Test Item Value Reference Range Interpretation [...] UPROP) Negative Negative Complete Blood Count Auto [id number] 21:21:00* Test Item Value Reference Range Interpretation [...] code = NRBCP) 0 % Comprehensive Metabolic Oqcpv6479-04-31 21:21:00* Test Item Value Reference Range Interpretation [...] a race coefficient. Additional information canbe found at:[email or web address]_[email or web address] 5.pdf ([email or web address]) [Automated message] The system [...] = ALP) 134 U/L 46-116 H Ethanol Pekek0692-22-25 21:21:00* Test Item Value Reference Range Interpretation Comme nts Ethanol (test code = ETOH) < 3 mg/dL The pharmacologi yudy response to blood alcohol levels mayvary from individual to individual. The fatal concentrationhas been reported to be >400mg/dL. POCT GLUCOSE (AUTOMATED)2022-08-11 13:40:35* Test Item Value Reference Range Interpretation Comme nts POCT GLU (test code = 7259452365) 121 mg/dL 70-110 H Lab Interpretation (test cod e = 49788-3) Abnormal [facility] GLUCOSE (AUTOMATED)2022-08-11 02:18:58* Test Item Value Reference Range Interpretation Comme nts POCT GLU (test code = 6020483923) 183 mg/dL 70-110 H Lab Interpretation (test cod e = 07374-9) Abnormal [facility] GLUCOSE (AUTOMATED)2022-08-10 23:16:11* Test Item Value Reference Range Interpretation Comme nts POCT GLU (test code = 9021232843) 176 mg/dL 70-110 H Lab Interpretation (test cod e = 34922-0) Abnormal [facility] GLUCOSE (AUTOMATED)2022-08-10 18:22:51* Test Item Value Reference Range Interpretation Comme nts POCT GLU (test code = 9402654178) 165 mg/dL 70-110 H Lab Interpretation (test cod e = 94473-2) Abnormal [facility] GLUCOSE (AUTOMATED)2022-08-10 14:18:05* Test Item Value Reference Range Interpretation Comme nts POCT GLU (test code = 9063125881) 138 mg/dL 70-110 H Lab Interpretation (test cod e = 96492-9) Abnormal [facility] GLUCOSE (AUTOMATED)2022-08-10 11:01:21* Test Item Value Reference Range Interpretation Comme nts POCT GLU (test code = 3543623090) 143 mg/dL 70-110 H Lab Interpretation (test cod e = 44572-5) [facility]normal [facility] [id number] 06:51:18* Test Item Value Reference Range Interpretation Comme nts TROPONIN I (test code = 8827460797) 0.008 ng/mL <=0.034 JUAN ALBERTO (test code [...] of biotin. Lab Interpretation (test code = 48785-2) Normal [facility] URI-[id number] 06:47:37* Test Item Value Reference Range Interpretation Comme nts NT-proBNP (test code = 0685741338) 37 pg/mL <=125 JUAN ALBERTO (test code = JUAN ALBERTO) Biotin has been reported to cause a negative bias, interpret results relative to patient's use of biotin. Lab Interpretation (test code = 92774-9) [facility]23-[facility]-19 06:25:52 ALCOHOL<10mg/dL08/10/2022 12:25 [facility] Rjbcwiey15-807 Toxic>100 Depression of DECK ENGINEER>400 [facility]OLIC PANEL (26255)2022-08-10 06:19:15* Test Item Value Reference Range Interpretation Comme nts NA (test code = 9803063459) 135 mmol/L 135-145 K (test code = 9787028791) 4.3 mmol/L 3.5-5.0 CL (test code = 1507562449) 98 mmol/L 98-108 CO2 TOTAL (test code = 9943690396) 30 mmol/L 23-31 AGAP (test code = 3027868152) 7 2-16 BUN (test code = 4920109469) 11 mg/dL 7-23 GLUCOSE (test code = 8864924715) 153 mg/dL 70-110 H CREATININE (test code = 7136707192) 0.77 mg/dL 0.60-1.25 TOTAL BILI (test code = 8255171832) 0.9 mg/dL 0.1-1.1 CALCIUM (test code = 7388157020) 10.0 mg/dL 8.6-10.6 T PROTEIN (test code = 3168949175) 7.7 g/dL 6.3-8.2 ALBUMIN (test code = 3153695783) 4.6 g/dL 3.5-5.0 ALK PHOS (test code = 7091355778) 92 U/L 34-122 ALTv (test code = 1742-6) 35 U/L 5-50 AST(SGOT) (test code = 7622416529) 42 U/L 13-40 H eGFR (test code = 5638795822) 106.1 mL/min/1.73m2 JUAN ALBERTO (test code = [...] imaging tests). Lab Interpretation (test code = 83349-2) [facility] 06:19:15* Test Item Value Reference Range Interpretation Comme nts MAGNESIUM (test code = 9573294434) 2.2 mg/dL 1.7-2.4 Lab Interpretation (test cod e = 91674-9) [facility]19 06:18:55* Test Item Value Reference Range Interpretation Comme nts LIPASE (test code = 3503949729) 18 U/L 0-220 Lab Interpretation (test cod e = 11518-1) Normal [facility] [id number] 06:18:55* Test Item Value Reference Range Interpretation Comme nts CK (test code = 8572192307) 174 U/L 33-194 Lab Interpretation (test cod e = 40023-7) Normal [facility] WITH OOPD6065-81-42 06:02:35* Test Item Value Reference Range Interpretation Comme nts WBC (test code = 6690-2) 7.50 See_Comment [Automated Airwoot] The system which generated this result transmitted reference range: 4.20 - 10.70 10*3/?L. The reference range was not used to interpret this result as normal/abnormal. RBC (test code = 789-8) 4.80 See_Comment [Automated Lehoa Linkua] The system which generated this result transmitted [...] 32.4 g/dL 31.2-35.0 RDW-SD (test code = 19092-3) 50.2 fL 38.5-51.6 RDW-CV (test code = 788-0) 14.3 % 12.1-15.4 PLT (test code = 777-3) 241 See_Comment [Automated messa ge] The system which generated this result transmitted reference range: 150 - 328 10*3/?L. The reference range was not used to interpret this result as normal/abnormal. MPV (test code = 70904-6) 8.6 fL 9.8-13.0 L NRBC/100 WBC (test code = 6554076022) 0.0 See_Comment [Automated CompleteSet ssage] The system which generated this result transmitted reference range: 0.0 - 10.0 /100 WBCs. The reference range was not used to interpret this result as normal/abnormal. NRBC x10^3 (test code = 5765386462) See_Comment [Automated messa ge] The system which generated this result transmitted reference range: 10*3/?L. The reference range was not used to interpret this result as normal/abnormal. GRAN MAT (NEUT) % (test code = 770-8) 63.9 % IMM GRAN % (test code = 0345799294) 0.50 % LYMPH % (test code = 736-9) 17.6 % MONO % (test code = 5905-5) 16.5 % EOS % (test code = 713-8) 0.7 % BASO % (test code = 706-2) 0.8 % GRAN MAT x10^3(ANC) (test code = 5320246186) 4.79 10*3/uL 1.99-6.95 IMM GRAN x10^3 (test code = 1330459414) 0.04 10*3/uL 0.00-0.06 LYMPH x10^3 (test code = 731-0) 1.32 10*3/uL 1.09-3.23 MONO x10^3 (test code = 742-7) 1.24 10*3/uL 0.36-1.02 H EOS x10^3 (test code = 711-2) 0.05 10*3/uL 0.06-0.53 L BASO x10^3 (test code = 704-7) 0.06 10*3/uL 0.01-0.09 Lab Interpretation (test code = 55684-3) [facility] [id number] 15:15:32* Test Item Value Reference Range Interpretation Comments TROPONIN I (test code = 8252632009) 0.007 ng/mL See_Comment [Automated message] The system [...] of biotin. Lab Interpretation (test code = 59951-0) Normal [facility]wood[facility]PTT2022-10-16 15:08:29* Test Item Value Reference Range Interpretation Comme [facility] APTT Patient (test code = 3173-2) See_Comment [Automated message] The system which generated this result transmitted reference range: 23 - 38 Seconds. The reference range was not used to interpret this result as normal/abnormal. JUAN ALBERTO (test code = JUAN ALBERTO) The [facility] patient population mean normal value for aPTT is 30 seconds. Lab Interpretation (test code = 97306-4) Normal [facility]wood[facility] / [id number] 15:06:28* Test Item Value Reference Range Interpretation Comme [facility] PROTIME PATIENT (test code = 5964-2) See_Comment [Automated Lehoa ge] The system which generated this result transmitted reference range: 12.0 - 14.7 Seconds. The reference range was not used to interpret this result as normal/abnormal. INR (test code = 6301-6) Normal INR <1.1; Warfarin Therapeutic range 2.0 to 3.0 or 2.5 to 3.5, depending upon the indications. Lab Interpretation (test code = 17940-6) [facility] MET[facility]OLIC PANEL (06420)2022-04-06 15:03:31* Test Item Value Reference Range Interpretation Comme nts NA (test code = 3427790072) 136 mmol/L 135-145 K (test code = 7252632187) 5.0 mmol/L 3.5-5 CL (test code = 6931886479) 104 mmol/L 98-108 CO2 TOTAL (test code = 7308917222) 21 mmol/L 23-31 L AGAP (test code = 1752980002) 2-16 BUN (test code = 7688862669) 11 mg/dL 7-23 GLUCOSE (test code = 0925056751) 162 mg/dL 70-110 H CREATININE (test code = 7450432447) 0.52 mg/dL 0.6-1.25 L TOTAL BILI (test code = 4266479171) 1.0 mg/dL 0.1-1.1 CALCIUM (test code = 9195278101) 9.3 mg/dL 8.6-10.6 T PROTEIN (test code = 2826825319) 7.4 g/dL 6.3-8.2 ALBUMIN (test code = 7172152820) 4.4 g/dL 3.5-5 ALK PHOS (test code = 7051971754) 134 U/L 34-122 H ALTv (test code = 1742-6) 17 U/L 5-50 AST(SGOT) (test code = 0489296773) 38 U/L 13-40 eGFR (test code = 7454536949) mL/min/1.73m2 JUAN ALBERTO (test code = JUAN [...] imaging tests). Lab Interpretation (test code = 28513-1) [facility]normal [facility]wood[facility], [id number] 15:03:31* Test Item Value Reference Range Interpretation Comme nts LIPASE (test code = 8493828061) 29 U/L 0-220 Lab Interpretation (test cod e = 09030-2) Normal [facility]wood[facility] WITH [id number] 14:51:49* Test Item Value Reference Range Interpretation Comme nts WBC (test code = 6690-2) See_Comment [Learning Hyperdrive] The system which generated this result transmitted reference range: 4.20 - 10.70 10*3/?L. The reference range was not used to interpret this result as normal/abnormal. RBC (test code = 789-8) See_Comment [Automated Airwoot] The system which generated this result transmitted [...] 34.0 g/dL 31.2-35 RDW-SD (test code = 34266-0) 45.9 fL 38.5-51.6 RDW-CV (test code = 788-0) 13.3 % 12.1-15.4 PLT (test code = 777-3) See_Comment [Automated messa ge] The system which generated this result transmitted reference range: 150 - 328 10*3/?L. The reference range was not used to interpret this result as normal/abnormal. MPV (test code = 54839-0) 8.4 fL 9.8-13 L NRBC/100 WBC (test code = 1834904315) See_Comment [Automated CompleteSet ssage] The system which generated this result transmitted reference range: 0.0 - 10.0 /100 WBCs. The reference range was not used to interpret this result as normal/abnormal. NRBC x10^3 (test code = 6908195436) See_Comment [Automated messa ge] The system which generated this result transmitted reference range: 10*3/?L. The reference range was not used to interpret this result as normal/abnormal. GRAN MAT (NEUT) % (test code = 770-8) 63.0 % IMM GRAN % (test code = 1265130209) 0.50 % LYMPH % (test code = 736-9) 25.2 % MONO % (test code = 5905-5) 9.8 % EOS % (test code = 713-8) 0.3 % BASO % (test code = 706-2) 1.2 % GRAN MAT x10^3(ANC) (test code = 0975077900) 3.73 10*3/uL 1.99-6.95 IMM GRAN x10^3 (test code = 3547082183) 0.03 10*3/uL 0-0.06 LYMPH x10^3 (test code = 731-0) 1.49 10*3/uL 1.09-3.23 MONO x10^3 (test code = 742-7) 0.58 10*3/uL 0.36-1.02 EOS x10^3 (test code = 711-2) 0.06-0.53 L BASO x10^3 (test code = 704-7) 0.07 10*3/uL 0.01-0.09 Lab Interpretation (test code = 19453-1) [facility], Urinalysis Rflx Cult/Szoxr4733-02-65 13:53:00* Test Item Value Reference Range Interpretation Comme nts Color,Urine (test code = UCOL) Yellow Yellow Clarity,Urine (test code = UCLAR) Cloudy Clear A Ph, Urine (test code = UPH) 7.5 5.0-9.0 N Specific Orange,Urine (test code = USG) 1.025 1.005-1.030 N [...] = ULEU) Negative mg/dL Negative UF REFLEXDrug Screen,Bwlwc4936-14-91 13:53:00* Test Item Value Reference Range Interpretation [...] UPROP) Negative Negative Complete Blood Count Auto Gtmt4110-85-95 12:58:00* Test Item Value Reference Range Interpretation [...] = NRBCP) 0 % Coronavirus PCR, COVID19 Ejpyn0529-61-81 12:58:00* Test Item Value Reference Range Interpretation Comme nts Coronavirus PCR, COVID19 Rapid (test code = SARSCOV2) Coronavirus PCR, COVID19 Rapid (test code = TCTOSTZ21.1) Reference Range: Negative SARS-CoV-2 PCR Result: (test code = SARS-CoV-2 PCR Result:) Negative by RT-PCR COVID-19 Status: AsymptomaticComprehensive Metabolic Lmxmd1005-05-16 12:58:00* Test Item Value Reference Range Interpretation [...] = ALP) 144 U/L 46-116 H Ethanol Juehc1509-20-97 12:58:00* Test Item Value Reference Range Interpretation Comme nts Ethanol (test code = ETOH) < 3 mg/dL The pharmacologi yudy response to blood alcohol levels mayvary from individual to individual. The fatal concentrationhas been reported to be >400mg/dL. TLBDDZQ1670-00-51 01:47:56* Test Item Value Reference Range Interpretation Comme nts [place] (test code = 1001947845) 0.7 mmol/L 0.6-1.2 JUAN ALBERTO (test code = JUAN ALBERTO) Toxic Range: ? Greater than 1.2 mmol/L Lab Interpretation (test code = 57366-0) [facility] [id number] 00:26:53* Test Item Value Reference Range Interpretation Comments TROPONIN I (test code = 6180199733) 0.002 ng/mL See_Comment [Automated message] The system [...] of biotin. Lab Interpretation (test code = 39665-0) Normal [facility]22-[facility]-01 00:18:52 ALCOHOL<10mg/dL01/19/2022 7:18 PM [facility]<10 Wdtgsyav89-500 Toxic>100 Depression of DECK ENGINEER>400 Fatalities ReportedHendrick [facility] BrownwoodCOMP. METABOLIC PANEL (94036)2022-01-20 00:16:16* Test Item Value Reference Range Interpretation Comme nts NA (test code = 2540863817) 137 mmol/L 135-145 K (test code = 3577353986) 4.5 mmol/L 3.5-5 CL (test code = 6221160989) 103 mmol/L 98-108 CO2 TOTAL (test code = 3280696667) 26 mmol/L 23-31 AGAP (test code = 6830485191) 2-16 BUN (test code = 3635968635) 10 mg/dL 7-23 GLUCOSE (test code = 2534174679) 121 mg/dL 70-110 H CREATININE (test code = 4231376582) 0.65 mg/dL 0.6-1.25 TOTAL BILI (test code = 6674949970) 0.8 mg/dL 0.1-1.1 CALCIUM (test code = 1668858172) 11.4 mg/dL 8.6-10.6 H T PROTEIN (test code = 6392905785) 7.2 g/dL 6.3-8.2 ALBUMIN (test code = 2780572361) 4.6 g/dL 3.5-5 ALK PHOS (test code = 3696966133) 112 U/L 34-122 ALTv (test code = 1742-6) 19 U/L 5-50 AST(SGOT) (test code = 3712542143) 26 U/L 13-40 eGFR (test code = 4058112749) mL/min/1.73m2 JUAN ALBERTO (test code = JUAN [...] imaging tests). Lab Interpretation (test code = 46441-7) Abnormal [facility] WITH [id number] 23:43:54* Test Item Value Reference Range Interpretation Comme nts WBC (test code = 6690-2) See_Comment [Automated [employer]] The system which generated this result transmitted reference range: 4.20 - 10.70 10*3/?L. The reference range was not used to interpret this result as normal/abnormal. RBC (test code = 789-8) See_Comment [Learning Hyperdrive] The system which generated this result transmitted [...] 34.4 g/dL 31.2-35 RDW-SD (test code = 89733-2) 44.0 fL 38.5-51.6 RDW-CV (test code = 788-0) 12.6 % 12.1-15.4 PLT (test code = 777-3) See_Comment [Automated messa ge] The system which generated this result transmitted reference range: 150 - 328 10*3/?L. The reference range was not used to interpret this result as normal/abnormal. MPV (test code = 15191-9) 9.1 fL 9.8-13 L NRBC/100 WBC (test code = 6978466728) See_Comment [Automated me ssage] The system which generated this result transmitted reference range: 0.0 - 10.0 /100 WBCs. The reference range was not used to interpret this result as normal/abnormal. NRBC x10^3 (test code = 1982371513) See_Comment [Automated messa ge] The system which generated this result transmitted reference range: 10*3/?L. The reference range was not used to interpret this result as normal/abnormal. GRAN MAT (NEUT) % (test code = 770-8) 69.8 % IMM GRAN % (test code = 6934019219) 0.40 % LYMPH % (test code = 736-9) 18.0 % MONO % (test code = 5905-5) 10.9 % EOS % (test code = 713-8) 0.1 % BASO % (test code = 706-2) 0.8 % GRAN MAT x10^3(ANC) (test code = 1332148650) 5.58 10*3/uL 1.99-6.95 IMM GRAN x10^3 (test code = 3589074092) 0.03 10*3/uL 0-0.06 LYMPH x10^3 (test code = 731-0) 1.44 10*3/uL 1.09-3.23 MONO x10^3 (test code = 742-7) 0.87 10*3/uL 0.36-1.02 EOS x10^3 (test code = 711-2) 0.06-0.53 L BASO x10^3 (test code = 704-7) 0.06 10*3/uL 0.01-0.09 Lab Interpretation (test code = 14472-6) Abnormal [facility] GLUCOSE (AUTOMATED)2022-01-19 22:27:41* Test Item Value Reference Range Interpretation Comme nts POCT GLU (test code = 4600548202) 123 mg/dL 70-110 H Lab Interpretation (test cod e = 05379-1) Abnormal [facility] GLUCOSE (AUTOMATED)2021-12-30 22:08:16* Test Item Value Reference Range Interpretation Comme nts POCT GLU (test code = 1688316371) 167 mg/dL 70-110 H Lab Interpretation (test cod e = 17059-5) Abnormal [facility] GLUCOSE (AUTOMATED)2021-12-30 16:50:40* Test Item Value Reference Range Interpretation Comme nts POCT GLU (test code = 8926302708) 154 mg/dL 70-110 H Lab Interpretation (test cod e = 65566-7) Abnormal [facility] GLUCOSE (AUTOMATED)2021-12-30 12:38:43* Test Item Value Reference Range Interpretation Comme nts POCT GLU (test code = 9494051608) 164 mg/dL 70-110 H Lab Interpretation (test cod e = 97186-5) Abnormal [facility] GLUCOSE (AUTOMATED)2021-12-30 02:14:58* Test Item Value Reference Range Interpretation Comme nts POCT GLU (test code = 2719048914) 220 mg/dL 70-110 H Lab Interpretation (test cod e = 95592-7) Abnormal [facility] GLUCOSE (AUTOMATED)2021-12-29 21:50:02* Test Item Value Reference Range Interpretation Comme nts POCT GLU (test code = 3767378748) 191 mg/dL 70-110 H Lab Interpretation (test cod e = 42379-0) Abnormal [facility] GLUCOSE (AUTOMATED)2021-12-29 20:15:01* Test Item Value Reference Range Interpretation Comme nts POCT GLU (test code = 7817312672) 163 mg/dL 70-110 H Lab Interpretation (test cod e = 05377-8) [facility] 19:12:22* Test Item Value Reference Range Interpretation Comme nts Height (test code = 1737645010) in Weight (test code = 9104004332) lbs Systolic BP (test code = 5002507328) mmHg Diastolic BP (test code = 3732995437) mmHg Heart Rate (test code = 8703468559) bpm BSA (test code = 7106814794) 1.62 m2 Ao root annulus (test code = 7139632157) 2.45 cm Ao root diam (test code = 8263019622) 2.45 cm Aortic root (test code = 7853556161) 2.45 cm ACS (test code = 3934601006) 1.66 cm LA size (test code = 8718002027) 3.2 cm LVOT diameter (test code = 9331990259) 1.95 cm LVIDD (test code = 4213572440) 3.60 cm IVS (test code = 1415248584) 0.94 cm Interventricular Septum Diastolic Thickness by 2D (test code = 0194230) 0.94 cm LVPWD (test code = 7055552942) 0.80 cm PW (test code = 1336558706) 0.80 cm 0.6-1.1 EF(Teich) (test code = 6019591870) 52.80 % LVIDS (test code = 3155398246) 2.60 cm FS (test code = 1985877082) 27 % EF - 2D (test code = 33046082) 52.80 % LAV(MOD-sp4) (test code = 9341779296) 16.80 mL MV Peak E Jovany (test code = 6301777651) 46.1 cm/s E wave decelartion time (test code = 1785685602) 0.31 s MV Peak A Jovany (test code = 0294210283) 58.1 cm/s E/A ratio (test code = 1741460788) ratio MV E/e' septal (test code = 4272115264) 5.7 cm/s Tapse (test code = 9782019872) 1.60 cm LVOT stroke volume (test code = 9350703927) 52.10 cm3 LVOT peak jovany (test code = 7086113500) 110.6 cm/s LVOT mn grad (test code = 0042405970) mmHg AV LVOT peak gradient (test code = 4177161468) mmHg LVOT peak VTI (test code = 0766967913) 17.4 cm LV V1 mean (test code = 4597448675) 66.10 cm/s Aortic valve mean velocity (test code = 4717494612) 73.0 cm/s Ao peak jovany (test code = 8141197406) 124.6 cm/s Ao VTI (test code = 5315724718) 18.6 cm AV area by cont VTI (test code = 8351506967) 2.8 cm2 AV area peak jovany (test code = 6815282678) 2.7 cm2 Ao max PG (test code = 1206400601) 6.20 mm[Hg] AV peak gradient (test code = 3213925999) mmHg AV valve area (test code = 4309882300) 2.80 cm2 AV mean gradient (test code = 2651918461) mmHg Radiology Study observation (narrative) (test code = 56705-9) JUAN ALBERTO (test code = JUAN ALBERTO) [...] mL of Lumason [facility] 12:50:31* Test Item Value Reference Range Interpretation Comme nts POCT GLU (test code = 9467392431) 141 mg/dL 70-110 H Lab Interpretation (test cod e = 72081-6) [facility]normal [facility]rop[facility] [id number] 10:38:31* Test Item Value Reference Range Interpretation Comments TROPONIN I (test code = 1285559050) 0.003 ng/mL See_Comment [Automated message] The system [...] of biotin. Lab Interpretation (test code = 94837-3) Normal [facility]wood[facility]IP[facility] (75660)(TOTAL CHOLESTEROL, TRIGLYCERIDES, HDL)2021-12-29 05:56:47* Test Item Value Reference Range Interpretation Comme nts CHOL (test code = 0644645795) 168 mg/dL 120-200 HDL (test code = 5901418694) 102 mg/dL See_Comment [Automated Lehoa Linkua] The system which generated this result transmitted reference range: >=40. The reference range was not used to interpret this result as normal/abnormal. HDLC RATIO (test code = 1581240016) See_Comment [Automated Lehoa ge] The system which generated this result transmitted reference range: <=5.0. The reference range was not used to interpret this result as normal/abnormal. TRIG (test code = 0538202067) 55 mg/dL 30-170 LDL CHOL (test code = 35453-6) 55 mg/dL See_Comment [Automated Lehoa ge] The system which generated this result transmitted reference range: <=160. The reference range was not used to interpret this result as normal/abnormal. VLDL (test code = 8107509465) 11 mg/dL 5-60 Lab Interpretation (test code = 41560-5) [facility]wood[facility] Hormone (TSH)2021-12-29 05:40:29* Test Item Value Reference Range Interpretation Comme nts TSH (test code = 7579999208) See_Comment Biotin has been reported to cause a negative bias, interpret results relative to patient's use of biotin. [Automated message] The system which generated this result transmitted reference range: 0.45 - 4.70 mIU/L. The reference range was not used to interpret this result as normal/abnormal. Lab Interpretation (test code = 33132-9) Normal [facility]woodTroponin Z3209-11-60 05:34:29* Test Item Value Reference Range Interpretation Comments TROPONIN I (test code = 2940151610) 0.006 ng/mL See_Comment [Automated message] The system [...] of biotin. Lab Interpretation (test code = 81718-5) Normal [facility]wood[facility]ANOL2022-07-10 04:43:01 ALCOHOL<10mg/dL12/28/2021 11:43 PM [facility] Greater than or equal to 80 mg/dL. NOTE: Whole blood values are approximately 10% to 15% lower than serum and plasma.[facility] Glycosylated Hemoglobin (A1C)2021-12-29 01:51:44* Test Item Value Reference Range Interpretation Comme nts HGB A1C (test code = 4548-4) 6.5 % 4-5.7 H JUAN ALBERTO (test code = JUAN ALBERTO) Reference RangesNormal: <5.7%Prediabetes: 5.7 - 6.4%Diabetes: > 6.5% Lab Interpretation (test code = 88122-7) Abnormal [facility]woodTROPONIN [id number] 21:26:50* Test Item Value Reference Range Interpretation Comments TROPONIN I (test code = 6396452571) 0.002 ng/mL See_Comment [Automated message] The system [...] of biotin. Lab Interpretation (test code = 97903-8) Normal [facility]woodN-TERMINAL LML-[id number] 21:23:29* Test Item Value Reference Range Interpretation Comme nts NT-proBNP (test code = 8648700763) 41 pg/mL See_Comment [Automated message] The system which generated this result transmitted reference range: <=125. The reference range was not used to interpret this result as normal/abnormal. JUAN ALBERTO (test code = JUAN ALBERTO) Biotin has been reported to cause a negative bias, interpret results relative to patient's use of biotin. Lab Interpretation (test code = 55386-7) Normal [facility]woodAMMONIA, [id number] 21:20:38* Test Item Value Reference Range Interpretation Comme nts AMMONIA (test code = 9572227259) 9-33 L Slight hemolysis Lab Interpretation (test code = 35955-9) Abnormal [facility]woodCOMP. METABOLIC PANEL (27353)2021-12-28 21:08:48* Test Item Value Reference Range Interpretation Comme nts NA (test code = 0321201050) 137 mmol/L 135-145 K (test code = 0933258512) 4.5 mmol/L 3.5-5 CL (test code = 3906254733) 97 mmol/L 98-108 L CO2 TOTAL (test code = 1329784270) 29 mmol/L 23-31 AGAP (test code = 0027272902) 2-16 BUN (test code = 9582077317) 10 mg/dL 7-23 GLUCOSE (test code = 7117194574) 188 mg/dL 70-110 H CREATININE (test code = 6763724991) 0.58 mg/dL 0.6-1.25 L TOTAL BILI (test code = 3545228913) 0.8 mg/dL 0.1-1.1 CALCIUM (test code = 4096678386) 10.5 mg/dL 8.6-10.6 T PROTEIN (test code = 5356591065) 7.6 g/dL 6.3-8.2 ALBUMIN (test code = 2996938642) 4.5 g/dL 3.5-5 ALK PHOS (test code = 1769899205) 107 U/L 34-122 ALTv (test code = 1742-6) 66 U/L 5-50 H AST(SGOT) (test code = 0238204537) 96 U/L 13-40 H eGFR (test code = 7805470436) mL/min/1.73m2 JUAN ALBERTO (test code = JUAN [...] imaging tests). Lab Interpretation (test code = 68990-6) Abnormal [facility]woodPROTHROMBIN TIME / [id number] 21:01:25* Test Item Value Reference Range Interpretation Comme nts PROTIME PATIENT (test code = 5964-2) See_Comment [Automated Airwoot] The system which generated this result transmitted reference range: 12.0 - 14.7 Seconds. The reference range was not used to interpret this result as normal/abnormal. INR (test code = 6301-6) Normal INR <1.1; Warfarin Therapeutic range 2.0 to 3.0 or 2.5 to 3.5, depending upon the indications. Lab Interpretation (test code = 70819-3) Normal [facility]woodCBC WITH [id number] 20:54:03* Test Item Value Reference Range Interpretation Comme nts WBC (test code = 6690-2) See_Comment [Automated Lehoa Linkua] The system which generated this result transmitted reference range: 4.20 - 10.70 10*3/?L. The reference range was not used to interpret this result as normal/abnormal. RBC (test code = 789-8) See_Comment [Automated Lehoa Linkua] The system which generated this result transmitted [...] 34.2 g/dL 31.2-35 RDW-SD (test code = 72608-1) 47.8 fL 38.5-51.6 RDW-CV (test code = 788-0) 13.3 % 12.1-15.4 PLT (test code = 777-3) See_Comment [Automated Lehoa ge] The system which generated this result transmitted reference range: 150 - 328 10*3/?L. The reference range was not used to interpret this result as normal/abnormal. MPV (test code = 88351-8) 8.6 fL 9.8-13 L NRBC/100 WBC (test code = 4607402251) See_Comment [Automated CompleteSet ssage] The system which generated this result transmitted reference range: 0.0 - 10.0 /100 WBCs. The reference range was not used to interpret this result as normal/abnormal. NRBC x10^3 (test code = 6520128720) See_Comment [Automated Lehoa ge] The system which generated this result transmitted reference range: 10*3/?L. The reference range was not used to interpret this result as normal/abnormal. GRAN MAT (NEUT) % (test code = 770-8) 64.1 % IMM GRAN % (test code = 1277375296) 0.40 % LYMPH % (test code = 736-9) 16.6 % MONO % (test code = 5905-5) 17.2 % EOS % (test code = 713-8) 0.2 % BASO % (test code = 706-2) 1.5 % GRAN MAT x10^3(ANC) (test code = 5184251023) 3.47 10*3/uL 1.99-6.95 IMM GRAN x10^3 (test code = 0254445797) 0-0.06 LYMPH x10^3 (test code = 731-0) 0.90 10*3/uL 1.09-3.23 L MONO x10^3 (test code = 742-7) 0.93 10*3/uL 0.36-1.02 EOS x10^3 (test code = 711-2) 0.06-0.53 L BASO x10^3 (test code = 704-7) 0.08 10*3/uL 0.01-0.09 Lab Interpretation (test code = 65225-8) [facility]normal [facility]woodEthanol [id number] 21:08:00* Test Item Value Reference Range Interpretation Comme nts Ethanol (test code = ETOH) < 3 mg/dL The pharmacologi yudy response to blood alcohol levels mayvary from individual to individual. The fatal concentrationhas been reported to be >400mg/dL. Complete Blood Count Auto [id number] 17:33:00* Test Item Value Reference Range Interpretation [...] = NRBCP) 0 % UA, Urinalysis Rflx Cult/[id number] 17:33:00* Test Item Value Reference Range Interpretation Comme nts Color,Urine (test code = UCOL) Dark Yellow Yellow A Clarity,Urine (test code = UCLAR) Clear Clear Ph, Urine (test code = UPH) 6.5 5.0-9.0 N Specific Orange,Urine (test code = USG) 1.015 1.005-1.030 N [...] = ULEU) Trace mg/dL Negative A Urine [id number] 17:33:00* Test Item Value Reference Range Interpretation Comme nts RBC,Urine (test code = URBCUF) None Seen /HPF 0-2 WBC,Urine (test code = UWBCUF) 0-5 /HPF 0-5 Epithelial Cell,Urine (test code = UECUF) 0-5 /HPF 0-5 Casts,Urine (test code = UCASTUF) None Seen /LPF None Seen Bacteria,Urine (test code = UBACTUF) None Seen /hpf None Seen Drug Screen,Fbqkj0451-77-37 17:33:00* Test Item Value Reference Range Interpretation [...] code = UPROP) Negative Negative Comprehensive Metabolic Hzajb3751-08-92 17:33:00* Test Item Value Reference Range Interpretation [...] 101 U/L 46-116 N Sars-CoV-2/FLU A/B RSV [id number] 17:31:00* Test Item Value Reference Range Interpretation [...] SARS-CoV-2 PCR Result:) Negative by RT-PCR Drug Screen,Wodok6252-57-40 17:20:00* Test Item Value Reference Range Interpretation [...] UPROP) Negative Negative Complete Blood Count Auto Kiyv6969-74-15 17:14:00* Test Item Value Reference Range Interpretation [...] code = NRBCP) 0 % Comprehensive Metabolic Gdwnh5442-10-25 17:14:00* Test Item Value Reference Range Interpretation [...] = ALP) 207 U/L 46-116 H Ethanol Mcbcc1065-88-90 17:14:00* Test Item Value Reference Range Interpretation Comme nts Ethanol (test code = ETOH) 192 mg/dL Complete Blood Count Auto Dooi6653-27-62 20:20:00* Test Item Value Reference Range Interpretation [...] code = NRBCP) 0 % Comprehensive Metabolic Xdvzx2936-51-95 20:20:00* Test Item Value Reference Range Interpretation [...] = ALP) 189 U/L 46-116 H Ethanol Fpnlv8847-03-51 20:20:00* Test Item Value Reference Range Interpretation Comme nts Ethanol (test code = ETOH) 10 mg/dL Sars-CoV-2/FLU A/B RSV [id number] 20:20:00* Test Item Value Reference Range Interpretation [...] Negative by Nucleic Acid Amplification UA, Urinalysis Onvodsffext9594-65-29 20:20:00* Test Item Value Reference Range Interpretation Comme nts Color,Urine (test code = UCOL) Yellow Y Clarity,Urine (test code = UCLAR) Clear Clear PH,Urine (test code = UPH.XX) 7.0 5.5-8.5 Specific Orange,Urine (test code = USG) 1.020 1.005-1.030 N [...] code = ULEU) Negative cells/uL Negative Drug Screen,Qhvxw0081-53-30 20:20:00* Test Item Value Reference Range Interpretation [...] RESULT TO MICHAELA TRACY CT head/brain wo [facility] [address] [place] [address] Patient Name: Walt Velazquez Medical Record#: [id number] Address: Homeless City/State/Zip: [place] [address]: Vinnie Navarro MD Phone: Insurance: Self Pay /Age/Sex: 1970/50/M Admit/Reg Date: 09/17/[address]: Vinnie Navarro MD Location: [facility]/ PCP: Md KERWIN Flores Date of Service: 09/17/21 Order (s): CT head/brain wo con CPT Code: 86727 Report Number: [id number] Reason for Exam: Altered mental status Location [...] Karen Jay MD 09/17/2021 6:42 PM CDTWorkstation: [id number] Dictated By: Karen Sanders MD 09/17/211824 Signed By: Karen Sanders MD 09/17/211824 TD/TT: 09/17/211824 Tech: ES135 cc: JOSEE; GENESIS* Vinnie Navarro MD; Pcp-Md KERWIN Stiles"
--- NOTE | 2023-09-21 09:50 | RAD REPORT ---
EXAM DESCRIPTION: CT - CTHCSPWOC - 09/21/2023 9:41 am CLINICAL HISTORY: Trauma, head and neck injury. ams COMPARISON: Head C Spine Mpr Wo Con dated 04/17/2023; Head C Spine Mpr Wo Con dated 03/22/2022; Head C Spine Mpr Wo Con dated 05/09/2021; Head C Spine Mpr Wo Con dated 04/29/2021 TECHNIQUE: Axial 5 mm thick images of the head were obtained. Axial 2 mm thick images of the cervical spine were obtained with sagittal and coronal reconstruction images generated and reviewed. All CT scans are performed using dose optimization technique as appropriate and may include automated exposure control or mA/KV adjustment according to patient size. FINDINGS: CT HEAD WITHOUT CONTRAST: No acute hemorrhage, hydrocephalus or extra-axial collection is identified.No areas of brain edema or midline shift. Cerebral atrophy. Small cyst in the subcutaneous tissues at the forehead. Remote left medial orbital wall fracture. Several left ethmoid air cells are opacified which may be secondary to the left medial orbital wall c hronic fracture .The calvarium is intact. CT CERVICAL SPINE WITHOUT CONTRAST: No fracture or subluxation.No prevertebral soft tissues swelling is identified. Bridging osteophytes present consistent with diffuse idiopathic skeletal hyperostosis. IMPRESSION: No acute intracranial or cervical spine findings.
[2023-09-21 09:59] LABS: Absolute Basophils 0.1 K/uL (0-0.5); Absolute Lymphocytes (CBC) 1.3 K/uL (0.7-4.9); Absolute Monocytes 0.3 K/uL (0.1-1.3); Absolute Neutrophil 2.6 K/uL (1.8-8.0); Basophils % 1.7 % (0-1.3); Hematocrit 45.7 % (39.6-49.0); Hemoglobin 14.8 g/dL (13.6-17.9); Lymphocytes % 30.2 % (15.3-44.8); MCH 29.9 pg (27.0-35.0); MCHC 32.4 g/dL (32.0-36.0); MCV 92.4 fL (80-100); MPV 6.4 fL (7.6-11.3); Monocytes % 7.7 % (3.3-12.3); Neutrophils % 59.4 % (41.7-73.7); Nucleated Red Blood Cells % 0.1 % (0-0); Platelets 121 thou/uL (152-406); RBC Red Blood Cell Count 4.94 M/uL (4.33-5.43); Red Cell Distribution Width 16.5 % (12.1-15.2)
--- NOTE | 2023-09-21 10:35 | RAD REPORT ---
EXAM DESCRIPTION: RAD - Chest Single View - 09/21/2023 10:07 am CLINICAL HISTORY: AMS COMPARISON: Chest Single View dated 08/05/2023; Chest Single View dated 07/24/2023; Chest Single View d ated 07/23/2023; Chest Single View dated 07/19/2023; Abdomen Pelvis Wo Contrast dated 08/05/2023 FINDINGS: Lines: None. Lungs: No evidence of edema or pneumonia. Pleural: No significant pleural effusions or pneumothorax. Cardiac: The heart size is within normal limits. Mediastinum: Within normal limits. Bones: No acute fractures. Other: None IMPRESSION: No acute cardiopulmonary disease.
[2023-09-21 13:01] LABS: ALT/SGPT 36 U/L (16-61); AST/SGOT 58 U/L (15-37); Albumin 3.4 g/dL (3.4-5.0); Albumin/Globulin Ratio 0.9 (1.1-1.8); Alkaline Phosphatase 118 U/L (45-117); Anion Gap 8.6 mEq/L (5.0-15.0); BUN Blood Urea Nitrogen 10 mg/dL (7-18); Bicarbonate 29 mEq/L (21-32); Bilirubin Total 0.2 mg/dL (0.2-1.0); Glomerular Filtration Rate 108 ml/min (=/>90); Glucose Level 170 mg/dL (74-106); Potassium 3.6 mEq/L (3.5-5.1); Protein, Total 7.4 g/dL (6.4-8.2); Sodium Level 144 mEq/L (136-145)
[2023-09-21 13:01] LABS: Barbiturates NEGATIVE (NEGATIVE); Benzodiazepines NEGATIVE (NEGATIVE); Cocaine NEGATIVE (NEGATIVE); METHAMPHETAM NEGATIVE (NEGATIVE); Methadone NEGATIVE (NEGATIVE); Opiates NEGATIVE (NEGATIVE); Phencyclidine NEGATIVE (NEGATIVE); THC Cannibis NEGATIVE (NEGATIVE)
[2023-09-21 13:02] LABS: Bilirubin Direct < 0.1 mg/dL (0-0.2); Bilirubin Indirect, Calculated ND mg/dL (0.2-0.8)
--- NOTE | 2023-09-21 13:36 | EKG ---
Test Date: 2023-09-21 Test Time: 09:47:36 Interpretative Dancer: PH MEASUREMENT RESULTS: Intervals: Rate: 67 IA: 190 QRSD: 88 QT: 386 QTc: 407 Tram: P: 75 IA: 190 QRS: 60 T: 42 INTERPRETIVE STATEMENTS: Normal sinus rhythm Normal ECG Compared to ECG 09/16/2023 09:17:39 No significant changes Electronically Signed On 09-21-23 13:35:47 CDT by Cristhian Hernandez
--- NOTE | 2023-09-21 16:38 | EDPHYS ---
Physician Documentation [facility] Name: Walt Velazquez Age: 52 yrs Sex: Male : 1970 Arrival Date: 09/21/2023 Time: 09:18 Bed 17 Private MD: ED Physician Jovanny Wen HPI: 09/20 09:51 This 52 yrs old Male presents to ER via EMS with complaints of AMS. ms3 09:51 52-year-old male with past medical history of alcoholism, bipolar, hypertension, ms3 Parkinson's, seizures presents to the emergency department via [place] [facility] for altered mental status. [place] of tequ[place]. EMS notes patient returned to baseline prior to arrival. Patient's glucose 160, heart rate in the 70s, blood pressure 115/72. On exam patient denies pain, nausea, vomiting, headache.. Historical: - Allergies: 09:26 Trazodone; ph - PMHx: 09:26 Alcoholism; Bipolar II; Hypertensive disorder; Parkinsons; Seizure; ph - Immunization history:: Adult Immunizations unknown. - Social history:: Smoking status: unknown Patient uses alcohol, on a daily basis. ROS: 09:51 Constitutional: Negative for fever, and chills. Neck: Negative for injury, pain, and ms3 swelling, Cardiovascular: Negative for chest pain, and palpitations. Respiratory: Negative for shortness of breath, cough, wheezing, and pleuritic chest pain, Abdomen/GI: Negative for abdominal pain, nausea, vomiting, diarrhea, and constipation, MS/Extremity: Negative for injury and deformity, Skin: Negative for injury, rash, and discoloration, Neuro: Negative for headache, weakness, numbness, tingling. Exam: 09:51 Constitutional: This is a well developed, well nourished patient who is awake, alert, ms3 and in no acute distress. Head/Face: Normocephalic, atraumatic. Chest/axilla: Normal chest wall appearance and motion. Nontender with no deformity. Cardiovascular: Regular rate and rhythm with a normal S1 and S2. No gallops, murmurs, or rubs. Normal PMI, no JVD. No pulse deficits. Respiratory: Lungs have equal breath sounds bilaterally, clear to auscultation and percussion. No rales, rhonchi or wheezes noted. No increased work of breathing, no retractions or nasal flaring. Abdomen/GI: Soft, non-tender, with normal bowel sounds. No distension or tympany. No guarding or rebound. No evidence of tenderness throughout. Skin: Warm, dry with normal turgor. Normal color with no rashes, no lesions, and no evidence of cellulitis. 09:51 Neuro: Orientation: is normal, to person, place, time \T\ situation. Patient is slow to answer questions with difficulty speaking, 15:01 ECG was reviewed by the Attending Physician. ms3 Vital Signs: 09:24 BP 113 / 75; Pulse 72; Resp 18; Temp 97.5; Pulse Ox 100% on R/A; ph 10:00 BP 113 / 75; Pulse 62; Resp 18; Pulse Ox 98% ; cp4 11:00 BP 105 / 65; Pulse 64; Resp 18; Pulse Ox 97% ; cp4 12:00 BP 110 / 54; Pulse 64; Resp 18; Pulse Ox 97% ; cp4 MDM: 09:37 Patient medically screened. ms3 09:51 Differential Diagnosis: electrolyte abnormality, alcohol intoxication, hypoglycemia, ms3 intracranial bleed. 20:16 Data reviewed: vital signs, nurses notes, lab test result(s), radiologic studies, and ms3 as a result, I will discharge patient. Independent interpretation of the following test(s) in the Emergency Department EKG: See my EKG interpretation above CT Scan: My interpretation is CT head without contrast images reviewed by me do not reveal intracranial hemorrhage. Historians other than the Patient: EMS: . Care significantly affected by the following Social Determinants of Health: Misuse of alcohol and/or drugs. Counseling: I had a detailed discussion with the patient and/or guardian regarding the historical points, exam findings, and any diagnostic results supporting the discharge/admit diagnosis, lab results, radiology results, the need for outpatient follow up, to return to the emergency department if symptoms worsen or persist or if there are any questions or concerns that arise at home. ED course: Patient wishing to be discharged at this time. Patient is alert and oriented, ambulatory in the emergency department. Patient to follow-up with primary care in 2 to 3 days. Encourage patient to decrease alcohol intake. Patient understands/agrees with plan. All questions were answered. Return precautions discussed include worsening symptoms, or any other concerns. 09/20 09:27 Order name: Basic Metabolic Panel; Complete Time: 13:07 ms3 09/20 09:27 Order name: CBC with Diff; Complete Time: 10:12 ms3 09/20 09:27 Order name: LFT's; Complete Time: 13:07 ms3 09/20 09:50 Order name: ETOH Level; Complete Time: 13:07 ms3 09/20 09:50 Order name: UDS; Complete Time: 13:07 ms3 09/20 09:27 Order name: XRAY Chest (1 view); Complete Time: 11:15 ms3 09/20 09:27 Order name: CT Head C Spine; Complete Time: 10:12 ms3 09/20 09:27 Order name: EKG; Complete Time: 09:27 ms3 09/20 09:27 Order name: Cardiac monitoring; Complete Time: 10:00 ms3 09/20 09:27 Order name: EKG - Nurse/Tech; Complete Time: 10:00 ms3 09/20 09:27 Order name: IV Saline Lock; Complete Time: 10:00 ms3 09/20 09:27 Order name: Labs collected and sent; Complete Time: 10:00 ms3 09/20 09:27 Order name: O2 Per Protocol; Complete Time: 10:00 ms3 09/20 09:27 Order name: O2 Sat Monitoring; Complete Time: 10:00 ms3 09/20 10:06 Order name: Labs - recollect needed: light green; Complete Time: 10:24 bc6 09/20 10:40 Order name: Labs - recollect needed: light green . ; Complete Time: 11:01 ll1 EC:01 Rate is 67 beats/min. Rhythm is regular. QRS [place] is Normal. [place] interval is normal. QRS ms3 interval is normal. QT interval is normal. Clinical impression: Normal ECG. Interpreted by me. Reviewed by me. Administered Medications: No medications were administered Disposition Summary: 09/21/23 16:38 Discharge Ordered Notes: Location: Home ms3 Condition: Stable ms3 Diagnosis - Alcohol abuse with intoxication ms3 - Alcoholism ms3 - Thrombocytopenia, unspecified ms3 Followup: ms3 - With: Hernan Wilkes, DO - When: 2 - 3 days - Reason: Recheck today's complaints Discharge Instructions: - Discharge Summary Sheet ms3 - Alcohol Intoxication ms3 - Thrombocytopenia ms3 - Alcohol Abuse and Nutrition ms3 Forms: - Medication Reconciliation Form ms3 - Thank You Letter ms3 - Antibiotic Education ms3 - Prescription Opioid Use ms3 - Patient Portal Instructions ms3 - Leadership Thank You Letter ms3 Signatures: Dispatcher [employer] Carlie Scales RN RN Monet Masters RN RN 1 Jovanny Wen DO DO ms3 Nkechi Jasso 6
--- NOTE | 2023-09-21 16:38 | ER ---
Nurse's Notes [facility] Name: Walt Velazquez Age: 52 yrs Sex: Male : 1970 Arrival Date: 09/21/2023 Time: 09:18 Bed 17 Private MD: Diagnosis: Alcohol abuse with intoxication;Alcoholism;Thrombocytopenia, unspecified Presentation: 09/20 09:24 Chief complaint: EMS states: EMS called for unresponsive, pt found on ground in front ph of post office w/ a bottle of tequila, known hx of ETOH abuse, VSS, BGL 160. Coronavirus screen: Vaccine status: unable to obtain. Ebola Screen: No symptoms or risks identified at this time. Initial Sepsis Screen: Does the patient meet any 2 criteria? No. Patient's initial sepsis screen is negative. Does the patient have a suspected source of infection? No. Patient's initial sepsis screen is negative. Risk Assessment: Do you want to hurt yourself or someone else? Patient reports no desire to harm self or others. Onset of symptoms was September 21, 2023. 09:24 Method Of Arrival: EMS: [facility] 09:24 Acuity: LATASHA 2 Triage Assessment: 09:27 General: Appears in no apparent distress. Behavior is cooperative, drowsy, Smells of ph alcohol. Pain: Complains of pain in head. Neuro: Level of Consciousness is obeys commands, lethargic, listless, obtunded, Oriented to person. Cardiovascular: Capillary refill < 3 seconds in bilateral fingers Patient's skin is warm and dry. Respiratory: Airway is patent Respiratory effort is even, unlabored. Historical: - Allergies: : Trazodone; ph - PMHx: :26 Alcoholism; Bipolar II; Hypertensive disorder; Parkinsons; Seizure; ph - Immunization history:: Adult Immunizations unknown. - Social history:: Smoking status: unknown Patient uses alcohol, on a daily basis. Screenin: [facility] ED Fall Risk Assessment (Adult) History of falling in the last 3 months, ph including since admission Yes- fall prone (multiple falls) (3 pts) Confusion or Disorientation Yes (5 pts) Intoxicated or Sedated Yes (3 pts) Impaired Gait No (0 pts) Mobility Assist Device Used No (0 pt) Altered Elimination No (0 pt) Score/Fall Risk Level 3 or more points = High Risk Oriented to surroundings, Maintained a safe environment, Hourly rounding (assess needs \T\ fall precautionary measures) done. Abuse screen: Denies threats or abuse. Denies injuries from another. Nutritional screening: No deficits noted. Tuberculosis screening: No symptoms or risk factors identified. Assessment: 14:22 Reassessment: Patient refusing vital signs. Patient attempting to leave and pull IV cp4 out. Patient put back in bed. 15:12 Reassessment: Patient removed IV despite multiple attempts to keep it in. Patient cp4 states he wants to leave. Provider states patient is still too drunk to leave on his own. 16:24 Reassessment: No changes from previously documented assessment. Patient and/or family ll1 updated on plan of care and expected duration. Pain level reassessed. resting, appears comfortable on stretcher. Vital Signs: 09:24 BP 113 / 75; Pulse 72; Resp 18; Temp 97.5; Pulse Ox 100% on R/A; ph 10:00 BP 113 / 75; Pulse 62; Resp 18; Pulse Ox 98% ; cp4 11:00 BP 105 / 65; Pulse 64; Resp 18; Pulse Ox 97% ; cp4 12:00 BP 110 / 54; Pulse 64; Resp 18; Pulse Ox 97% ; cp4 ED Course: 09:21 Patient arrived in ED. ms3 09:21 Jovanny Wen DO is Attending Physician. ms3 09:24 Carlie Melo, RN is Primary Nurse. ph 09:26 Triage completed. ph 09:28 Arm band placed on Patient placed in an exam room. ph 09:28 Patient has correct armband on for positive identification. Bed in low position. Call ph light in reach. Side rails up X2. Pulse ox on. NIBP on. 09:42 CT Head C Spine In Process Unspecified. EDMS 10:09 XRAY Chest (1 view) In Process Unspecified. EDMS 16:37 Hernan Wilkes DO is Referral Physician. ms3 16:57 Provided Education on: ETOH abuse. ll1 16:57 No provider procedures requiring assistance completed. intact, bleeding controlled, No ll1 redness/swelling at site. Pressure dressing applied. Administered Medications: No medications were administered Medication: 09:28 VIS not applicable for this client. ph Outcome: 16:38 Discharge ordered by . ms3 16:56 Patient left the ED. ll1 16:57 Discharged to home ambulatory, ll1 16:57 Condition: stable 16:57 Discharge instructions given to patient, Instructed on discharge instructions, follow up and referral plans. Demonstrated understanding of instructions, follow-up care, Signatures: Dispatcher [employer] Carlie Scales RN RN ph Lewis, Lynsay, RN RN 1 Jovanny Wen DO DO ms3 Fidelia Saldivar 4
[2023-09-21 23:38] VITALS: BP 110/54; TEMP 97.5; O2SAT 97
== END 2023-09-21 16:56 | disposition home or self-care (01) ==
LOC: ER 09:18
DX: F10.229 Alcohol dependence with intoxication, unspecified (principal); D69.6 Thrombocytopenia, unspecified
CPT/HCPCS: 36415; 70450; 71045; 72125; 80048; 80076; 80307; 82077; 85025; 93005; 99284

== ENCOUNTER 2023-09-21 22:39 | Emergency (ER) | payer SELFPAY ==
--- OUTSIDE RECORDS SUMMARY | 2023-09-21 22:44 | XMS REPORT | Continuity of Care Document ---
Author Name Unknown Address [address] [facility]. [address] [place] [address] [facility] Address [address] [facility]. [address] [place] [address] Care Team Providers Care Vice Principal Name Role Phone Pcp-None Primary Care Physician Unavailab HEMANT Adame Attending Clinician Unavailable Hemant Klein MD Attending Clinician [phone] Pan Pinto Attending Clinician Unavailab JESSICA Gallardo Attending Clinician Unavailable Rayray Driscoll MD Attending Clinician [phone] Jessica Prado MD Attending Clinician [phone] Oswald Murphy MD Attending Clinician [phone] DIYA CHOWDHURY Attending Clinician Unavailab Diya Mackey DO Attending Clinician [phone] Fidel Cuellar Attending Clinician Unavailable DIRK YARBROUGH Attending Clinician Unavailable Leticia Rowland Attending Clinician [phone] Dirk Yarbrough MD Attending Clinician [phone] Faye Portillo LVN Attending Clinician [phone] Pia Reddy Attending Clinician [phone] Vinnie Navarro Attending Clinician Unavailable OSWALD MURPHY Admitting Clinician Unavailable Oswald Murphy MD Admitting Clinician [phone] DIYA CHOWDHURY Admitting Clinician UnavailLeticia Gaytan Admitting Clinician Unavailable JESSICA PRADO Admitting Clinician Unavailable eJssica Prado MD Admitting Clinician [phone] Payers Payer Name Policy Type Policy Number Effective Date Expirati on Date Source [facility] [id number] 2022 00:00:00 Problems Condition Name Condition Details Condition Category Status Onset Date Resolution Date Last Treatment Date Treating Clinician Comments Source Alcohol withdrawal syndrome with complicati on Alcohol withdrawal syndrome with complicati on Disease Active 08-10 00:00: 00 [facility] Type 2 diabetes mellitus with other specified complicati on Type 2 diabetes mellitus with other specified complicati on Disease Active 12-29 00:00: 00 [facility] Dyslipidem ia Dyslipidem ia Disease Active 12-29 00:00: 00 [facility] Chest pain, unspecifie d type Chest pain, unspecifie d type Disease Active 12-28 00:00: 00 [facility] Priapism Priapism Disease Active 2013-06 1-06 00:00: 00 [facility] Allergies, Adverse Reactions, Alerts Allergy Name Allergy Type Status Severity Reaction(s) Onset Date Inactive Date Treating Clinician Comments Source No Known Drug Allergie s DA Active U 4-25 00:00: 00 [facility] No Known Drug Allergie s DA Active U 0 9-16 00:00: 00 [facility] No Known Drug Allergie s DA Active U 0 3-29 00:00: 00 [facility] No Known Drug Allergie s DA Active U 2019-06 2-16 00:00: 00 [facility] No Known Drug Allergie s DA Active U 2019-06 2-15 00:00: 00 [facility] No Known Drug Allergie s DA Active U 2019-06 2-02 00:00: 00 [facility] Trazodon e Propensi ty to adverse reaction s Active Other - See comments 10-06 00:00: 00 [facility] TRAZODON E DRUG INGREDI Active Other-Cmnt 10-06 00:00: 00 [facility] Social History Social Habit Start Date Stop Date Quantity Comments Source History of tobacco use Cigarette Smoker [facility] Exposure to SARS-CoV-2 (event) 2022-11-01 00:00:00 2022-11-11 13:57:00 Not sure [facility] Tobacco use and exposure 2022-08-10 00:00:00 2022-08-10 00:00:00 User of smokeless tobacco [facility] Alcohol intake 2022-08-10 00:00:00 2022-08-10 00:00:00 Current drinker of alcohol (finding) [facility] Tobacco Comment 2022-08-10 00:00:00 2022-08-10 00:00:00 1/2 a pack a day [facility] Sex Ass[birth year] At 1970 00:00:00 1970 00:00:00 [facility] Smoking Status Start Date Stop Date Source Smokes tobacco daily 2022-08-10 00:00:00 [facility] Medications Ordered Medication Name Filled Medication Name Start Date Stop Date Current Medication? Ordering Clinician Indication Dosage Frequency Signature (SIG) Comments Components Source NaCl 0.9% (NS) bolus infusion 1,000 mL 11-11 19:45: 00 11-11 20:23 :00 No 1000mL at 999 mL/hr, 1,000 mL, IV Piggyback, ONCE, 1 dose, On Thu11/11/22 at 1445, STAT [facility] multivitami n tablet 1 tablet 08-12 15:00: 00 Yes 1{tbl} 1 tablet, Oral, DAILY, First dose on Thu08/12/22 at 0900, Until Discontinu ed, Routine [facility] foLIC acid (FOLATE) tablet 1 mg 08-12 15:00: 00 Yes 1mg 1 mg, Oral, DAILY, First dose on Thu08/12/22 at 0900, Until Discontinu ed, Routine [facility] foLIC acid 1 mg tablet 08-12 00:00: 00 09-12 04:59 :00 No [id number] 1mg Take 1 tablet by mouth in the morning for 30 days. [facility] oxazepam (SERAX) capsule 15 mg [...] Thu08/13/22 at 0600, Routine [Order 2 End] [facility] thiamine (VITAMIN B1) tablet 100 mg 08-11 16:15: 00 Yes 100mg 100 mg, Oral, DAILY, First dose on Thu08/11/22 at 1015, Until Discontinu ed, Routine [facility] enoxaparin (LOVENOX) injection 40 mg 08-10 23:00: 00 Yes 40mg 40 mg, Subcutaneo us, DAILY, First dose on Thu08/10/22 at 1700, Until Discontinu ed, Routine [facility] NaCl 0.9% (NS) IV infusion 1,000 mL 08-10 15:00: 00 Yes 1000mL at 125 mL/hr, IV Infusion, CONTINUOUS , Starting on Thu08/10/22 at 0900, Until Discontinu ed, Routine [facility] foLIC acid (FOLATE) 5 mg in NaCl 0.9% (NS) piggyback 08-10 15:00: 00 08-11 16:14 :47 No 5mg IV Piggyback, DAILY, First dose on Thu08/10/22 at 0900, Until Discontinu ed, 50 mL [facility] thiamine (VITAMIN B1) 100 mg in NaCl 0.9% (NS) piggyback 08-10 15:00: 00 08-10 16:08 :00 No 100mg IV Piggyback, DAILY, 1 dose, First dose on Thu08/10/22 at 0900, 50 mL [facility] LORazepam (ATIVAN) injection 2 mg 08-10 14:52: 57 Yes 2mg 2 mg, Slow IV Push, Q4HPRN, Starting on 08/10/22 at 0852, Until Discontinu ed, Routine, Seizures, Agitation, Anxiety [facility] Sliding Scale Insulin-Reg ular + Fsbg Testing 08-10 13:30: 00 Yes Subcutaneo us, AC+HS, First dose on Thu08/10/22 at 0730, Until Discontinu ed, Routine [facility] oxazepam (SERAX) capsule 15 mg 08-10 12:08: 05 Yes 15mg 15 mg, Oral, Q4HPRN, Starting on 08/10/22 at 0608, Until Discontinu ed, Routine, Only while awake for DBP equal to or greater than 100, HR equal to or greater than 100. [facility] dextrose 10% (D10W) bolus infusion [...] unable to swallow or has mental changes. [facility] ondansetron (ZOFRAN (PF)) injection 4 mg 08-10 12:02: 53 Yes 4mg 4 mg, Slow IV Push, Q6HPRN, Starting on Thu08/10/22 at 0602, Until Discontinu ed, Routine, Nausea and Vomiting (N/V) [facility] ibuprofen (MOTRIN IB) tablet 200 mg 08-10 12:02: 45 Yes 200mg 200 mg, Oral, Q6HPRN, Starting on Thu08/10/22 at 0602, Until Discontinu ed, Routine, Pain (scale 1-3) [facility] NaCl 0.9% (NS) bolus infusion 1,000 mL 08-10 10:15: 00 08-10 13:00 :00 No 1000mL at 999 mL/hr, 1,000 mL, IV Infusion, ONCE, 1 dose, On Thu08/10/22 at 0415, STAT [facility] LORazepam (ATIVAN) injection 0.5 mg 08-10 09:15: 00 08-10 09:19 :00 No .5mg 0.5 mg, Slow IV Push, ONCE, 1 dose, On Thu08/10/22 at 0315, STAT [facility] LORazepam (ATIVAN) injection 1 mg 08-10 08:00: 00 08-10 07:05 :00 No 1mg 1 mg, Slow IV Push, ONCE NOW, 1 dose, On Thu08/10/22 at 0200, STAT [facility] thiamine (VITAMIN B1) injection 100 mg 08-10 06:45: 00 08-10 06:52 :00 No 100mg 100 mg, Intravenou s, ONCE, 1 dose, On 08/10/22 at 0045, JACIEL [facility] LORazepam (ATIVAN) injection 1 mg 08-10 05:15: 00 08-10 05:22 :00 No 1mg 1 mg, Slow IV Push, ONCE, 1 dose, On 08/09/22 at 2315, STAT [facility] ketorolac (TORADOL) injection 15 mg 2021-06 16:00: 00 04-06 14:50 :00 No 15mg 15 mg, Slow IV Push, ONCE, 1 dose, [facility] 04[facility]06/22 at 1100[facility] ([facility] 4 mg 2021-06 15:45: 00 04-06 14:50 :00 No 4mg 4 mg, Slow IV Push, ONCE, 1 dose, On 04/06/22 at 1045, [facility] oxazepam (SERAX) capsule 15 mg 12-31 06:28: 17 01-01 06:29 :00 No 15mg 15 mg, Oral, Q12H TAPER, 2 doses, First dose on Thu12/31/21 at 0130, Last dose on Thu12/31/21 at 1330, Routine [facility] multivitami n tablet 12-31 00:00: 00 Yes [id number] 1{tbl} Take 1 tablet by mouth in the morning. [facility] thiamine 100 mg tablet 12-31 00:00: 00 Yes [id number] 100mg Take 1 tablet by mouth in the morning. [facility] aspirin 81 mg chewable tablet 12-31 00:00: 00 Yes [id number] 81mg Take 1 tablet by mouth in the morning. [facility] multivitami n tablet 12-31 00:00: 00 Yes [id number] 1{tbl} Take 1 tablet by mouth in the morning. [facility] thiamine 100 mg tablet 12-31 00:00: 00 Yes [id number] 100mg Take 1 tablet by mouth in the morning. [facility] aspirin 81 mg chewable tablet 2021-0 12-31 00:00: 00 Yes [id number] 81mg Take 1 tablet by mouth in the morning. [facility] multivitami n tablet 2021-0 12-31 00:00: 00 Yes [id number] 1{tbl} Take 1 tablet by mouth in the morning. [facility] thiamine 100 mg tablet 0 12-31 00:00: 00 Yes [id number] 100mg Take 1 tablet by mouth in the morning. [facility] aspirin 81 mg chewable tablet 0 12-31 00:00: 00 Yes [id number] 81mg Take 1 tablet by mouth in the morning. [facility] multivitami n tablet 0 12-31 00:00: 00 Yes [id number] 1{tbl} Take 1 tablet by mouth in the morning. [facility] thiamine 100 mg tablet 2021-0 12-31 00:00: 00 Yes [id number] 100mg Take 1 tablet by mouth in the morning. [facility] aspirin 81 mg chewable tablet 12-31 00:00: 00 Yes [id number] 81mg Take 1 tablet by mouth in the morning. [facility] multivitami n tablet 0 12-31 00:00: 00 Yes [id number] 1{tbl} Take 1 tablet by mouth in the morning. [facility] thiamine 100 mg tablet 0 12-31 00:00: 00 Yes [id number] 100mg Take 1 tablet by mouth in the morning. [facility] aspirin 81 mg chewable tablet 0 12-31 00:00: 00 Yes [id number] 81mg Take 1 tablet by mouth in the morning. [facility] multivitami n tablet 2021-0 12-31 00:00: 00 Yes [id number] 1{tbl} Take 1 tablet by mouth in the morning. [facility] thiamine 100 mg tablet 12-31 00:00: 00 Yes [id number] 100mg Take 1 tablet by mouth in the morning. [facility] aspirin 81 mg chewable tablet 12-31 00:00: 00 Yes [id number] 81mg Take 1 tablet by mouth in the morning. [facility] foLIC acid 1 mg tablet 12-31 00:00: 00 01-31 04:59 :00 No [id number] 1mg Take 1 tablet by mouth in the morning for 30 days. [facility] foLIC acid 1 mg tablet 12-31 00:00: 00 01-31 04:59 :00 No [id number] 1mg Take 1 tablet by mouth in the morning for 30 days. [facility] foLIC acid 1 mg tablet 12-31 00:00: 00 01-31 04:59 :00 No [id number] 1mg Take 1 tablet by mouth in the morning for 30 days. [facility] metFORMIN 500 mg tablet 12-30 00:00: 00 Yes [id number] 500mg Take 1 tablet by mouth in the morning and 1 tablet in the evening. Take with meals. [facility] metFORMIN 500 mg tablet 12-30 00:00: 00 Yes [id number] 500mg Take 1 tablet by mouth in the morning and 1 tablet in the evening. Take with meals. [facility] metFORMIN 500 mg tablet 12-30 00:00: 00 Yes [id number] 500mg Take 1 tablet by mouth in the morning and 1 tablet in the evening. Take with meals. [facility] metFORMIN 500 mg tablet 12-30 00:00: 00 Yes [id number] 500mg Take 1 tablet by mouth in the morning and 1 tablet in the evening. Take with meals. [facility] metFORMIN 500 mg tablet 12-30 00:00: 00 Yes [id number] 500mg Take 1 tablet by mouth in the morning and 1 tablet in the evening. Take with meals. [facility] metFORMIN 500 mg tablet 12-30 00:00: 00 Yes [id number] 500mg Take 1 tablet by mouth in the morning and 1 tablet in the evening. Take with meals. [facility] aspirin chewable tablet 81 mg 12-29 14:00: 00 Yes 81mg 81 mg, Oral, DAILY, First dose on 12/29/21 at 0900, Until Discontinu ed, Routine [facility] sulfur hexafluorid e microsphr (LUMASON) injection 5 mL 12-29 13:45: 00 12-29 13:45 :00 No [id number] 5mL 5 mL, Intravenou s, ONCE, 1 dose, On 12/29/21 at 0845, Routine
council member approving Restricted medication : STEFANIE GORMAN [facility] enoxaparin (LOVENOX) injection 40 mg 12-29 13:00: 00 Yes 40mg 40 mg, Subcutaneo us, Q24H, First dose on 12/29/21 at 0800, Until Discontinu ed, Routine [facility] Sliding Scale Insulin - Lispro (HumaLOG) + Fsbg Testing 12-29 13:00: 00 Yes Subcutaneo us, TID MEALS+HS, First dose on 12/29/21 at 0800, Until Discontinu ed, Routine [facility] diazePAM (VALIUM) injection 10 mg 12-29 05:30: 00 12-29 04:40 :00 No 10mg 10 mg, Intravenou s, ONCE, 1 dose, On 12/29/21 at 0030, Routine [facility] diazePAM (VALIUM) injection 10 mg 12-29 04:15: 00 12-29 03:17 :00 No 10mg 10 mg, Intravenou s, ONCE, 1 dose, On 12/28/21 at 2315, Routine [facility] diazePAM (VALIUM) injection 5 mg 12-29 03:45: 01 Yes 5mg 5 mg, Intravenou s, QIDPRN, Starting on 12/28/21 at 2245, Until Discontinu ed, Routine, Seizures, Agitation [facility] foLIC acid (FOLATE) tablet 1 mg 12-29 03:45: 00 Yes 1mg 1 mg, Oral, DAILY, First dose on 12/28/21 at 2245, Until Discontinu ed, Routine [facility] thiamine (VITAMIN B1) tablet 100 mg 12-29 03:45: 00 Yes 100mg 100 mg, Oral, DAILY, First dose (after last modificati on) on 12/28/21 at 2245, Until Discontinu ed, Routine [facility] glucagon (GLUCAGEN DIAGNOSTIC KIT) injection 1 mg 12-29 03:42: 19 Yes 1mg 1 mg, Intramuscu lar, PRN, Starting on 12/28/21 at 2242, Until Discontinu ed, JACIEL, Blood Glucose < or = 70 mg/dL and patient is unable to swallow or has mental changes. [facility] dextrose 10% (D10W) bolus infusion [...] blood glucose is < 80 mg/dL, repeat.
[facility] LORazepam (ATIVAN) injection 1 mg 12-29 03:30: 00 12-29 02:32 :00 No 1mg 1 mg, Intravenou s, ONCE, 1 dose, On 12/28/21 at 2230, Routine
Is the medication being used for status epilepticu s? No [facility] oxazepam (SERAX) capsule 15 mg 12-29 00:28: 20 Yes 15mg 15 mg, Oral, Q4HPRN, Starting on 12/28/21 at 1928, Until Discontinu ed, Routine, Only while awake for DBP equal to or greater than 100, HR equal to or greater than 100. [facility] ondansetron (ZOFRAN (PF)) injection 4 mg 12-29 00:23: 47 Yes 4mg 4 mg, Slow IV Push, Q6HPRN, Starting on 12/28/21 at 1923, Until Discontinu ed, Routine, Nausea and Vomiting (N/V) [facility] acetaminoph en (TYLENOL) tablet 650 mg 12-29 00:23: 37 Yes 650mg 650 mg, Oral, Q6HPRN, Starting on 12/28/21 at 1923, Until Discontinu ed, Routine, Pain (scale 1-3), Temp > 38.5 C [facility] chlordiazeP OXIDE (LIBRIUM) capsule 25 mg 12-28 23:15: 00 12-28 23:24 :00 No 25mg 25 mg, Oral, ONCE, 1 dose, On 12/28/21 at 1815, JACIEL [facility] NaCl 0.9% (NS) bolus infusion 2,000 mL 12-28 22:45: 00 12-28 23:18 :00 No 2000mL at 999 mL/hr, 2,000 mL, IV Infusion, ONCE, 1 dose, On 12/28/21 at 1745, JACIEL [facility] LORazepam (ATIVAN) injection 1 mg 12-28 20:45: 00 12-28 20:49 :00 No 1mg 1 mg, Slow IV Push, ONCE, 1 dose, On 12/28/21 at 1545, STAT
Is the medication being used for status epilepticu s? No [facility] acetaminoph en (TYLENOL) 500 mg tablet 10-06 00:00: 00 Yes 500mg Take 1 Tab by mouth every 6 (six) hours as needed for Pain. [facility] acetaminoph en (TYLENOL) 500 mg tablet 10-06 00:00: 00 Yes 500mg Take 1 Tab by mouth every 6 (six) hours as needed for Pain. [facility] acetaminoph en (TYLENOL) 500 mg tablet 10-06 00:00: 00 Yes 500mg Take 1 Tab by mouth every 6 (six) hours as needed for Pain. [facility] acetaminoph en (TYLENOL) 500 mg tablet 10-06 00:00: 00 Yes 500mg Take 1 Tab by mouth every 6 (six) hours as needed for Pain. [facility] acetaminoph en (TYLENOL) 500 mg tablet 10-06 00:00: 00 Yes 500mg Take 1 Tab by mouth every 6 (six) hours as needed for Pain. [facility] acetaminoph en (TYLENOL) 500 mg tablet 10-06 00:00: 00 Yes 500mg Take 1 Tab by mouth every 6 (six) hours as needed for Pain. [facility] Vital Signs Vital Name Observation Time Observation Value Comments S alliglo Systolic blood pressure 2022-11-11 20:31:31 116 mm[Hg] [facility] Diastolic blood pressure 2022-11-11 20:31:31 77 mm[Hg] [facility] Heart rate 2022-11-11 20:31:31 84 /min [facility] Respiratory rate 2022-11-11 20:31:31 12 /min [facility] Oxygen saturation in Arterial blood by Pulse oximetry 2022-11-11 20:31:31 90 /min [facility] Body temperature 2022-11-11 18:49:00 37.11 Theresa [facility] Body height 2022-11-11 18:49:00 160 cm [facility] Body weight 2022-11-11 18:49:00 68.04 kg [facility] BMI 2022-11-11 18:49:00 26.57 kg/m2 [facility] Body temperature 2022-08-11 14:00:00 36.5 Theresa [facility] Systolic blood pressure 2022-08-11 10:00:00 116 mm[Hg] [facility] Diastolic blood pressure 2022-08-11 10:00:00 71 mm[Hg] [facility] Heart rate 2022-08-11 10:00:00 70 /min [facility] Respiratory rate 2022-08-11 10:00:00 16 /min [facility] Body weight 2022-08-11 10:00:00 65.499 kg [facility] BMI 2022-08-11 10:00:00 25.58 kg/m2 [facility] Oxygen saturation in Arterial blood by Pulse oximetry 2022-08-11 10:00:00 100 /min [facility] Body height 2022-08-10 22:12:00 160 cm [facility] Systolic blood pressure 2022-04-06 16:00:00 125 mm[Hg] [facility] Diastolic blood pressure 2022-04-06 16:00:00 75 mm[Hg] [facility] Heart rate 2022-04-06 16:00:00 87 /min [facility] Respiratory rate 2022-04-06 16:00:00 22 /min [facility] Oxygen saturation in Arterial blood by Pulse oximetry 2022-04-06 16:00:00 98 /min [facility] Body temperature 2022-04-06 14:41:00 37 Theresa [facility] Body height 2022-04-06 14:41:00 160 cm [facility] Body weight 2022-04-06 14:41:00 63.504 kg [facility] BMI 2022-04-06 14:41:00 24.80 kg/m2 [facility] Systolic blood pressure 2022-01-20 02:27:00 121 mm[Hg] [facility] Diastolic blood pressure 2022-01-20 02:27:00 75 mm[Hg] [facility] Heart rate 2022-01-20 02:27:00 79 /min [facility] Respiratory rate 2022-01-20 02:27:00 12 /min [facility] Oxygen saturation in Arterial blood by Pulse oximetry 2022-01-20 02:27:00 98 /min [facility] Body temperature 2022-01-19 22:19:00 36.44 Theresa [facility] Body weight 2022-01-19 22:19:00 60.328 kg [facility] BMI 2022-01-19 22:19:00 23.56 kg/m2 [facility] Systolic blood pressure 2021-12-30 20:52:00 134 mm[Hg] [facility] Diastolic blood pressure 2021-12-30 20:52:00 76 mm[Hg] [facility] Heart rate 2021-12-30 20:52:00 67 /min [facility] Body temperature 2021-12-30 20:26:00 36.67 Theresa [facility] Oxygen saturation in Arterial blood by Pulse oximetry 2021-12-30 20:26:00 99 /min [facility] Respiratory rate 2021-12-30 16:21:00 18 /min [facility] Body weight 2021-12-30 08:27:00 60.464 kg [facility] BMI 2021-12-30 08:27:00 23.61 kg/m2 [facility] Body height 2021-12-29 01:29:00 160 cm [facility] Procedures Procedure Date / Time Performed Performing Clinician Source MAGNESIUM 2022-11-11 19:05:00 Hemant Klein [facility] BASIC METABOLIC PANEL (NA, K, CL, CO2, GLUCOSE, BUN, CREATININE, CA) 2022-11-11 19:05:00 Hemant Klein [facility] ETHANOL 2022-11-11 19:05:00 Hemant Klein [facility] CBC WITH DIFF 2022-11-11 19:05:00 Hemant Klein [facility] POCT GLUCOSE (AUTOMATED) 2022-08-11 13:36:00 Arvind Prado [facility] PHOSPHORUS 2022-08-11 10:35:00 Jessica Prado [facility] MAGNESIUM 2022-08-11 10:35:00 Jessica Prado [facility] AMMONIA, PLASMA 2022-08-11 10:35:00 Jessica Prado [facility] COMP. METABOLIC PANEL ([id number]) 2022-08-11 10:35:00 [facility] 2022-08-11 10:35:00 Oswald Murphy [facility] POCT GLUCOSE (AUTOMATED) 2022-08-11 02:15:00 Arvind Prado [facility] POCT GLUCOSE (AUTOMATED) 2022-08-10 23:10:00 Arvind Prado gregoria [facility] POCT GLUCOSE (AUTOMATED) 2022-08-10 18:20:00 Arvind Prado gregoria [facility] POCT GLUCOSE (AUTOMATED) 2022-08-10 14:11:00 Arvind Prado [facility] POCT GLUCOSE (AUTOMATED) 2022-08-10 10:59:00 Gopal Driscoll [facility] COVID-19 (ID NOW RAPID TESTING) 2022-08-10 07:17:00 Rayray Driscoll [facility] LAB ONLY COVID INTERPRETATION 2022-08-10 07:17:00 Rayray Driscoll [facility] HB ECG ROUTINE & RHYTHM STRIP 2022-08-10 06:03:48 Rayray Driscoll [facility] URINALYSIS 2022-08-10 05:46:00 [facility] URINE DRUG (IMMUNOASSAY) - COMPREHENSIVE DRUG SCREEN W/O REFLEX 2022-08-10 05:45:00 Rayray Driscoll [facility] CREATINE KINASE 2022-08-10 05:16:00 [facility] 2022-08-10 05:16:00 Rayray Driscoll [facility] MAGNESIUM 2022-08-10 05:16:00 Rayray Driscoll [facility] TROPONIN I 2022-08-10 05:16:00 [facility] COMP. METABOLIC PANEL ([id number]) 2022-08-10 05:16:00 Rayray Driscoll [facility] ETHANOL 2022-08-10 05:16:00 Rayray Driscoll [facility] CBC WITH DIFF 2022-08-10 05:16:00 Rayray Driscoll [facility] N-TERMINAL PRO-BNP 2022-08-10 05:16:00 Rayray Driscoll [facility] CRITICAL CARE 2022-08-10 04:52:00 Rayray Driscoll [facility] XR CHEST 1 VW 2022-04-06 14:51:50 Diya Chowdhury [facility] LIPASE 2022-04-06 14:42:00 [facility] 2022-04-06 14:42:00 Diya Chowdhury Un [facility] COMP. METABOLIC PANEL ([id number]) 2022-04-06 14:42:00 Diya Chowdhury [facility] CBC WITH DIFF 2022-04-06 14:42:00 Diya Chowdhury [facility] PROTHROMBIN TIME / INR 2022-04-06 14:42:00 Diya Chowdhury [facility] ACTIVATED PARTIAL THRMPLAS NELDA 2022-04-06 14:42:00 Diya Chowdhury [facility] LACTIC ACID WHOLE BLOOD 2022-01-20 00:22:00 Leticia Baldwin [facility] [facility] URINE DRUG (IMMUNOASSAY) - COMPREHENSIVE DRUG SCREEN 2022-01-19 23:10:00 Leticia Baldwin [facility] URINALYSIS 2022-01-19 23:10:00 Leticia Baldwin [facility] TROPONIN I 2022-01-19 23:00:00 Leticia Baldwin [facility] COMP. METABOLIC PANEL ([id number]) 2022-01-19 23:00:00 Leticia Baldwin [facility] LITHIUM 2022-01-19 23:00:00 [facility]-01-19 23:00:00 [facility] CBC WITH DIFF 2022-01-19 23:00:00 Leticia Baldwin [facility] COVID-19 (ID NOW RAPID TESTING) 2022-01-19 23:00:00 Leticia Baldwin [facility] CT HEAD WO CONTRAST 2022-01-19 22:49:00 Leticia Baldwin [facility] XR CHEST 1 VW 2022-01-19 22:41:00 Leticia Baldwin [facility] POCT GLUCOSE (AUTOMATED) 2022-01-19 22:25:00 Leticia Baldwin [facility] POCT GLUCOSE (AUTOMATED) 2021-12-30 21:55:00 Arvind Prado [facility] POCT GLUCOSE (AUTOMATED) 2021-12-30 16:21:00 Arvind Prado [facility] POCT GLUCOSE (AUTOMATED) 2021-12-30 12:30:00 Arvind Prado [facility] HEPATIC FUNCTION PANEL ([id number]) (ALB,T.PRO,BILI T,BU/BC,ALT,AST,ALK PHOS) 2021-12-30 09:28:00 Maira Gaitan [facility] POCT GLUCOSE (AUTOMATED) 2021-12-30 02:11:00 Arvind Prado [facility] POCT GLUCOSE (AUTOMATED) 2021-12-29 21:41:00 Arvind Prado [facility] POCT GLUCOSE (AUTOMATED) 2021-12-29 16:37:00 Arvind Prado [facility] TRANSTHORACIC ECHO (TTE) COMPLETE W/ CONTRAST 2021-12-29 13:05:00 Jessica Prado [facility] POCT GLUCOSE (AUTOMATED) 2021-12-29 12:41:00 Arvind Prado [facility] TROPONIN I 2021-12-29 09:42:00 [place], Jessica [facility] TROPONIN I 2021-12-29 04:55:00 Jessica Prado [facility] CT HEAD WO CONTRAST 2021-12-28 21:18:22 Poppy Renteria [facility] AMMONIA, PLASMA 2021-12-28 21:00:00 Pia Renteria [facility] COVID-19 (ID NOW RAPID TESTING) 2021-12-28 20:42:00 Pia Renteria [facility] LAB ONLY COVID INTERPRETATION 2021-12-28 20:42:00 Pia Renteria [facility] URINE DRUG (IMMUNOASSAY) - COMPREHENSIVE DRUG SCREEN W/O REFLEX 2021-12-28 20:42:00 Pia Renteria [facility] URINALYSIS 2021-12-28 20:40[facility] 2021-12-28 20:40:00 Corina Renteria [facility] TROPONIN I 2021-12-28 20:40:00 Pia Renteria [facility] THYROID STIMULATING HORMONE 2021-12-28 20:40:00 Jessica Prado [facility] COMP. METABOLIC PANEL (83204) 2021-12-28 20:40:00 Pia Renteria [facility] LIPID PANEL ([id number])(TOTAL CHOLESTEROL, TRIGLYCERIDES, HDL) 2021-12-28 20:40:00 Demetrius Langford [facility] ETHANOL 2021-12-28 20:40:00 Demetrius Langford [facility] CBC WITH DIFF 2021-12-28 20:40:00 Pia Renteria [facility] GLYCOSYLATED HEMOGLOBIN (A1C) 2021-12-28 20:40:00 Jessica Prado [facility] PROTHROMBIN TIME / INR 2021-12-28 20:40:00 Lesly Renteria [facility] XR CHEST 1 VW 2021-12-28 20:16:00 Pia Renteria [facility] HB ECG ROUTINE & RHYTHM STRIP 2021-12-28 20:04:59 Pia Renteria [facility] Encounters Start Date/Time End Date/Time Encounter Type Admission Type Attending [facility] Care Department Encounter ID Source 2021-09-17 16:45:00 Inpatient [facility] [id number] [facility] 2020-06-06 16:07:00 Inpatient [facility] [id number] [facility] 2020-06-06 06:20:00 Inpatient [facility] [id number] [facility] 2020-06-05 19:35:00 Inpatient [facility] [id number] [facility] 2020-05-23 19:53:00 Inpatient [facility] [id number] [facility] 2020-05-23 19:53:00 Inpatient [facility] [id number] [facility] 2022-11-11 13:50:00 2022-11-11 16:07:00 Emergency X HEMANT KLEIN [facility] [id number] [facility] 2022-11-11 13:50:00 2022-11-11 16:07:00 Emergency Jessica [facility] [id number] [id number] 4.2.7.2.686 [id number] [facility] 2022-10-14 20:59:00 2022-10-14 20:59:00 Emergency [facility] [id number] [facility] 2022-10-14 20:59:00 2022-10-14 20:59:00 Emergency Emergency ClareDeborah brotherschloe [facility] [id number] [facility] 2022-08-09 22:59:00 2022-08-11 13:02:00 Outpatient JESSICA GAINES [facility] [id number] [facility] 2022-08-09 22:59:00 2022-08-11 13:02:00 Emergency Rayray Driscoll Jelani Edionwe[facility] [id number] 350.1.13.10 4.2.7.2.686 [id number] [facility] 2022-04-06 09:38:00 2022-04-06 11:42:00 Emergency X DIYA CHOWDHURY [facility] ERT [id number] [facility] 2022-04-06 09:38:00 2022-04-06 11:42:00 Emergency Diya Chowdhury [facility] [id number] 350.1.13.10 4.2.7.2.686 [id number] [facility] 2022-03-07 12:38:00 2022-03-07 12:38:00 Emergency [facility] [id number] [facility] 2022-03-07 12:38:00 2022-03-07 12:38:00 Emergency Emergency Fidel Cuellar [facility] [id number] [facility] 2022-01-19 17:18:00 2022-01-19 22:00:00 Emergency X DIRK YARBROUGH [facility] ERT [id number] [facility] 2022-01-19 17:18:00 2022-01-19 22:00:00 Emergency Leticia Baldwin Julio C [facility] [id number] 350.1.13.10 4.2.7.2.686 [id number] [facility] 2021-12-31 00:00:00 2021-12-31 00:00:00 Transition of Care Faye Portillo 1.2840.114 350.1.13.10 4.2.7.2.686 [id number] [facility] 2021-12-28 14:53:00 2021-12-30 17:42:00 Inpatient X JESSICA PRADO [facility] [id number] [facility] 2021-12-28 14:53:00 2021-12-30 17:42:00 Hospital Encounter Pia Renteria Jelani [facility] [id number] 350.1.13.10 4.2.7.2.686 [id number] [facility] 2021-09-17 16:47:00 2021-09-17 16:47:00 Emergency [facility] [id number] [facility] 2020-06-06 16:07:00 2020-06-06 16:07:00 Emergency [facility] [id number] [facility] Results Test Description Test Time Test Comments Results Resul t Comments Source ETHANOL 2022-11-11 19:45:56 ALCOHOL<10mg/dL0 11/11/2022 2:45 PM [facility]<10 Yfixjnkp21-955 Toxic>100 Depression of PRODUCTION SUPERINTENDENT>400 [facility]:41:47* Test Item Value Reference Range Interpretation Comme nts MAGNESIUM (test code = 0995707248) 1.8 mg/dL 1.7-2.4 Lab Interpretation (test cod e = 87149-2) Normal [facility] WITH [id number] 19:25:26* Test Item Value Reference Range Interpretation [...] 33.9 g/dL 31.2-35.0 RDW-SD (test code = 04073-9) 46.0 fL 38.5-51.6 RDW-CV (test code = 788-0) 13.5 % 12.1-15.4 PLT (test code = 777-3) 237 See_Comment [Automated messa ge] The system which generated this result transmitted reference range: 150 - 328 10*3/?L. The reference range was not used to interpret this result as normal/abnormal. MPV (test code = 24947-2) 8.9 fL 9.8-13.0 L NRBC/100 WBC (test code = 1712930636) 0.0 See_Comment [Automated Instagram ssage] The system which generated this result transmitted reference range: 0.0 - 10.0 /100 WBCs. The reference range was not used to interpret this result as normal/abnormal. NRBC x10^3 (test code = 9094055221) See_Comment [Automated [employer]a ge] The system which generated this result transmitted reference range: 10*3/?L. The reference range was not used to interpret this result as normal/abnormal. GRAN MAT (NEUT) % (test code = 770-8) 71.2 % IMM GRAN % (test code = 9125392807) 0.30 % LYMPH % (test code = 736-9) 18.2 % MONO % (test code = 5905-5) 8.4 % EOS % (test code = 713-8) 1.0 % BASO % (test code = 706-2) 0.9 % GRAN MAT x10^3(ANC) (test code = 3003169886) 4.86 10*3/uL 1.99-6.95 IMM GRAN x10^3 (test code = 0312501888) 0.00-0.06 LYMPH x10^3 (test code = 731-0) 1.24 10*3/uL 1.09-3.23 MONO x10^3 (test code = 742-7) 0.57 10*3/uL 0.36-1.02 EOS x10^3 (test code = 711-2) 0.07 10*3/uL 0.06-0.53 BASO x10^3 (test code = 704-7) 0.06 10*3/uL 0.01-0.09 Lab Interpretation (test code = 71683-4) [facility] Rflx Cult/Vvrrj5986-61-51 22:20:00* Test Item Value Reference Range Interpretation Comme nts Color,Urine (test code = UCOL) Yellow Yellow Clarity,Urine (test code = UCLAR) Clear Clear Ph, Urine (test code = UPH) 7.0 5.0-9.0 N Specific [place],Urine (test code = USG) 1.020 1.005-1.030 N [...] code = ULEU) Negative mg/dL Negative Drug Screen,Bwbok6701-14-11 22:20:00* Test Item Value Reference Range Interpretation [...] UPROP) Negative Negative Complete Blood Count Auto Hmki0549-91-11 21:21:00* Test Item Value Reference Range Interpretation [...] code = NRBCP) 0 % Comprehensive Metabolic Aoolf2232-54-58 21:21:00* Test Item Value Reference Range Interpretation [...] a race coefficient. Additional information canbe found at:[email or web address] [email or web address]_[email or web address] 5.pdf ([email or web address]) [Automated message] The system [...] = ALP) 134 U/L 46-116 H Ethanol Iajcy6717-67-24 21:21:00* Test Item Value Reference Range Interpretation Comme nts Ethanol (test code = ETOH) < 3 mg/dL The pharmacologi yudy response to blood alcohol levels mayvary from individual to individual. The fatal concentrationhas been reported to be >400mg/dL. POCT GLUCOSE (AUTOMATED)2022-08-11 13:40:35* Test Item Value Reference Range Interpretation Comme nts POCT GLU (test code = 6297506765) 121 mg/dL 70-110 H Lab Interpretation (test cod e = 56441-0) [facility]22-08-11 02:18:58* Test Item Value Reference Range Interpretation Comme nts POCT GLU (test code = 9680673972) 183 mg/dL 70-110 H Lab Interpretation (test cod e = 51322-6) Abnormal [facility] GLUCOSE (AUTOMATED)2022-08-10 23:16:11* Test Item Value Reference Range Interpretation Comme nts POCT GLU (test code = 2475899261) 176 mg/dL 70-110 H Lab Interpretation (test cod e = 27126-6) Abnormal [facility] GLUCOSE (AUTOMATED)2022-08-10 18:22:51* Test Item Value Reference Range Interpretation Comme nts POCT GLU (test code = 5643689225) 165 mg/dL 70-110 H Lab Interpretation (test cod e = 25599-6) Abnormal [facility] GLUCOSE (AUTOMATED)2022-08-10 14:18:05* Test Item Value Reference Range Interpretation Comme nts POCT GLU (test code = 0388686305) 138 mg/dL 70-110 H Lab Interpretation (test cod e = 51184-4) [facility]2022-08-10 11:01:21* Test Item Value Reference Range Interpretation Comme nts POCT GLU (test code = 7942736775) 143 mg/dL 70-110 H Lab Interpretation (test cod e = 78943-7) [facility] [id number] 06:51:18* Test Item Value Reference Range Interpretation Comme nts TROPONIN I (test code = 4002994440) 0.008 ng/mL <=0.034 JUAN ALBERTO (test code [...] of biotin. Lab Interpretation (test code = 18253-2) Normal [facility] TTO-[id number] 06:47:37* Test Item Value Reference Range Interpretation Comme nts NT-proBNP (test code = 6961922030) 37 pg/mL <=125 JUAN ALBERTO (test code = JUAN ALBERTO) Biotin has been reported to cause a negative bias, interpret results relative to patient's use of biotin. Lab Interpretation (test code = 54558-1) [facility] 06:25:52 ALCOHOL<10mg/dL08/10/2022 12:25 [facility] Hicqbsuq51-622 Toxic>100 Depression of PRODUCTION SUPERINTENDENT>400 [facility]ABOLIC PANEL (26914)2022-08-10 06:19:15* Test Item Value Reference Range Interpretation Comme nts NA (test code = 0520879621) 135 mmol/L 135-145 K (test code = 6862854216) 4.3 mmol/L 3.5-5.0 CL (test code = 8061904788) 98 mmol/L 98-108 CO2 TOTAL (test code = 1529921805) 30 mmol/L 23-31 AGAP (test code = 2907081256) 7 2-16 BUN (test code = 1935466185) 11 mg/dL 7-23 GLUCOSE (test code = 0650843558) 153 mg/dL 70-110 H CREATININE (test code = 9737921043) 0.77 mg/dL 0.60-1.25 TOTAL BILI (test code = 9828512737) 0.9 mg/dL 0.1-1.1 CALCIUM (test code = 1240743629) 10.0 mg/dL 8.6-10.6 T PROTEIN (test code = 0326015888) 7.7 g/dL 6.3-8.2 ALBUMIN (test code = 6631124173) 4.6 g/dL 3.5-5.0 ALK PHOS (test code = 4668704472) 92 U/L 34-122 ALTv (test code = 1742-6) 35 U/L 5-50 AST(SGOT) (test code = 4996320619) 42 U/L 13-40 H eGFR (test code = 5065838311) 106.1 mL/min/1.73m2 JUAN ALBERTO (test code = [...] imaging tests). Lab Interpretation (test code = 02287-7) [facility] 06:19:15* Test Item Value Reference Range Interpretation Comme nts MAGNESIUM (test code = 0369980027) 2.2 mg/dL 1.7-2.4 Lab Interpretation (test cod e = 86174-1) [facility] 06:18:55* Test Item Value Reference Range Interpretation Comme nts LIPASE (test code = 8305129864) 18 U/L 0-220 Lab Interpretation (test cod e = 18848-1) Normal [facility] HospitalCREATINE KEHETV7564-94-20 06:18:55* Test Item Value Reference Range Interpretation Comme nts CK (test code = 8538970070) 174 U/L 33-194 Lab Interpretation (test cod e = 91148-9) [facility] WITH [id number] 06:02:35* Test Item Value Reference Range Interpretation Comme nts WBC (test code = 6690-2) 7.50 See_Comment [Automated [employer]] The system which generated this result transmitted reference range: 4.20 - 10.70 10*3/?L. The reference range was not used to interpret this result as normal/abnormal. RBC (test code = 789-8) 4.80 See_Comment [Automated Health [employer]a [employer]] The system which generated this result transmitted [...] 32.4 g/dL 31.2-35.0 RDW-SD (test code = 11994-8) 50.2 fL 38.5-51.6 RDW-CV (test code = 788-0) 14.3 % 12.1-15.4 PLT (test code = 777-3) 241 See_Comment [Automated messa ge] The system which generated this result transmitted reference range: 150 - 328 10*3/?L. The reference range was not used to interpret this result as normal/abnormal. MPV (test code = 21725-3) 8.6 fL 9.8-13.0 L NRBC/100 WBC (test code = 0651630495) 0.0 See_Comment [Automated Instagram ssage] The system which generated this result transmitted reference range: 0.0 - 10.0 /100 WBCs. The reference range was not used to interpret this result as normal/abnormal. NRBC x10^3 (test code = 1844589588) See_Comment [Automated messa ge] The system which generated this result transmitted reference range: 10*3/?L. The reference range was not used to interpret this result as normal/abnormal. GRAN MAT (NEUT) % (test code = 770-8) 63.9 % IMM GRAN % (test code = 1599899986) 0.50 % LYMPH % (test code = 736-9) 17.6 % MONO % (test code = 5905-5) 16.5 % EOS % (test code = 713-8) 0.7 % BASO % (test code = 706-2) 0.8 % GRAN MAT x10^3(ANC) (test code = 1890394526) 4.79 10*3/uL 1.99-6.95 IMM GRAN x10^3 (test code = 1980781503) 0.04 10*3/uL 0.00-0.06 LYMPH x10^3 (test code = 731-0) 1.32 10*3/uL 1.09-3.23 MONO x10^3 (test code = 742-7) 1.24 10*3/uL 0.36-1.02 H EOS x10^3 (test code = 711-2) 0.05 10*3/uL 0.06-0.53 L BASO x10^3 (test code = 704-7) 0.06 10*3/uL 0.01-0.09 Lab Interpretation (test code = 04624-1) [facility]normal [facility] [id number] 15:15:32* Test Item Value Reference Range Interpretation Comments TROPONIN I (test code = 6194226518) 0.007 ng/mL See_Comment [Automated message] The system [...] of biotin. Lab Interpretation (test code = 24260-2) Normal [facility] HospitalaPTT2022-10-16 15:08:29* Test Item Value Reference Range Interpretation Comme [facility] (test code = 3173-2) See_Comment [Automated message] The system which generated this result transmitted reference range: 23 - 38 Seconds. The reference range was not used to interpret this result as normal/abnormal. JUAN ALBERTO (test code = JUAN ALBERTO) The [facility] patient population mean normal value for aPTT is 30 seconds. Lab Interpretation (test code = 45478-7) Normal [facility] HospitalPROTHROMBIN TIME / [id number] 15:06:28* Test Item Value Reference Range Interpretation Comme [facility] PROTIME PATIENT (test code = 5964-2) See_Comment [Automated Health [employer]a ge] The system which generated this result transmitted reference range: 12.0 - 14.7 Seconds. The reference range was not used to interpret this result as normal/abnormal. INR (test code = 6301-6) Normal INR <1.1; Warfarin Therapeutic range 2.0 to 3.0 or 2.5 to 3.5, depending upon the indications. Lab Interpretation (test code = 57816-4) [facility] METABOLIC PANEL (51820)2022-04-06 15:03:31* Test Item Value Reference Range Interpretation Comme nts NA (test code = 2617589489) 136 mmol/L 135-145 K (test code = 3965444030) 5.0 mmol/L 3.5-5 CL (test code = 5605041766) 104 mmol/L 98-108 CO2 TOTAL (test code = 3371773717) 21 mmol/L 23-31 L AGAP (test code = 7734458083) 2-16 BUN (test code = 6698653113) 11 mg/dL 7-23 GLUCOSE (test code = 4400921659) 162 mg/dL 70-110 H CREATININE (test code = 4978108559) 0.52 mg/dL 0.6-1.25 L TOTAL BILI (test code = 2920385855) 1.0 mg/dL 0.1-1.1 CALCIUM (test code = 7191301334) 9.3 mg/dL 8.6-10.6 T PROTEIN (test code = 1808859004) 7.4 g/dL 6.3-8.2 ALBUMIN (test code = 2051305244) 4.4 g/dL 3.5-5 ALK PHOS (test code = 8672240243) 134 U/L 34-122 H ALTv (test code = 1742-6) 17 U/L 5-50 AST(SGOT) (test code = 5569779484) 38 U/L 13-40 eGFR (test code = 5820962887) mL/min/1.73m2 JUAN ALBERTO (test code = JUAN [...] imaging tests). Lab Interpretation (test code = 91879-2) Abnormal [facility], [id number] 15:03:31* Test Item Value Reference Range Interpretation Comme nts LIPASE (test code = 4971463115) 29 U/L 0-220 Lab Interpretation (test cod e = 63423-0) Normal [facility] HospitalCB WITH TRNT4077-39-45 14:51:49* Test Item Value Reference Range Interpretation Comme nts WBC (test code = 6690-2) See_Comment [[employer]] The system which generated this result transmitted reference range: 4.20 - 10.70 10*3/?L. The reference range was not used to interpret this result as normal/abnormal. RBC (test code = 789-8) See_Comment [Automated [employer]] The system which generated this result [...] 34.0 g/dL 31.2-35 RDW-SD (test code = 72648-7) 45.9 fL 38.5-51.6 RDW-CV (test code = 788-0) 13.3 % 12.1-15.4 PLT (test code = 777-3) See_Comment [Automated messa ge] The system which generated this result transmitted reference range: 150 - 328 10*3/?L. The reference range was not used to interpret this result as normal/abnormal. MPV (test code = 77070-5) 8.4 fL 9.8-13 L NRBC/100 WBC (test code = 7826211482) See_Comment [Automated [employer] ssage] The system which generated this result transmitted reference range: 0.0 - 10.0 /100 WBCs. The reference range was not used to interpret this result as normal/abnormal. NRBC x10^3 (test code = 2113028893) See_Comment [Automated messa ge] The system which generated this result transmitted reference range: 10*3/?L. The reference range was not used to interpret this result as normal/abnormal. GRAN MAT (NEUT) % (test code = 770-8) 63.0 % IMM GRAN % (test code = 8177468277) 0.50 % LYMPH % (test code = 736-9) 25.2 % MONO % (test code = 5905-5) 9.8 % EOS % (test code = 713-8) 0.3 % BASO % (test code = 706-2) 1.2 % GRAN MAT x10^3(ANC) (test code = 9291490778) 3.73 10*3/uL 1.99-6.95 IMM GRAN x10^3 (test code = 1990456117) 0.03 10*3/uL 0-0.06 LYMPH x10^3 (test code = 731-0) 1.49 10*3/uL 1.09-3.23 MONO x10^3 (test code = 742-7) 0.58 10*3/uL 0.36-1.02 EOS x10^3 (test code = 711-2) 0.06-0.53 L BASO x10^3 (test code = 704-7) 0.07 10*3/uL 0.01-0.09 Lab Interpretation (test code = 54636-8) [facility] Urinalysis Rflx Cult/Wuseb8049-24-41 13:53:00* Test Item Value Reference Range Interpretation Comme nts Color,Urine (test code = UCOL) Yellow Yellow Clarity,Urine (test code = UCLAR) Cloudy Clear A Ph, Urine (test code = UPH) 7.5 5.0-9.0 N Specific [place],Urine (test code = USG) 1.025 1.005-1.030 N [...] = ULEU) Negative mg/dL Negative UF REFLEXDrug Screen,Bpxjq8465-11-58 13:53:00* Test Item Value Reference Range Interpretation [...] UPROP) Negative Negative Complete Blood Count Auto Waec9846-47-46 12:58:00* Test Item Value Reference Range Interpretation [...] = NRBCP) 0 % Coronavirus PCR, COVID19 Jbyls3661-92-00 12:58:00* Test Item Value Reference Range Interpretation Comme nts Coronavirus PCR, COVID19 Rapid (test code = SARSCOV2) Coronavirus PCR, COVID19 Rapid (test code = RSKVTUK60.1) Reference Range: Negative SARS-CoV-2 PCR Result: (test code = SARS-CoV-2 PCR Result:) Negative by RT-PCR COVID-19 Status: AsymptomaticComprehensive Metabolic Txguw9816-53-18 12:58:00* Test Item Value Reference Range Interpretation [...] = ALP) 144 U/L 46-116 H Ethanol Hfxft4168-10-08 12:58:00* Test Item Value Reference Range Interpretation Comme nts Ethanol (test code = ETOH) < 3 mg/dL The pharmacologi yudy response to blood alcohol levels mayvary from individual to individual. The fatal concentrationhas been reported to be >400mg/dL. ZXZBBUQ1931-57-32 01:47:56* Test Item Value Reference Range Interpretation Comme nts [place] (test code = 5241657786) 0.7 mmol/L 0.6-1.2 JUAN ALBERTO (test code = JUAN ALBERTO) Toxic Range: ? Greater than 1.2 mmol/L Lab Interpretation (test code = 37141-0) [facility] [id number] 00:26:53* Test Item Value Reference Range Interpretation Comments TROPONIN I (test code = 2043471240) 0.002 ng/mL See_Comment [Automated message] The system [...] of biotin. Lab Interpretation (test code = 55385-9) Normal [facility]ETH[facility]OL2022-[facility] 00:18:52 ALCOHOL<10mg/dL01/19/2022 7:18 PM [facility]<10 Scfvvbia79-246 Toxic>100 Depression of PRODUCTION SUPERINTENDENT>400 Fatalities ReportedStarr [facility] HospitalCOMP. METABOLIC PANEL (33758)2022-01-20 00:16:16* Test Item Value Reference Range Interpretation Comme nts NA (test code = 2769021138) 137 mmol/L 135-145 K (test code = 5338493055) 4.5 mmol/L 3.5-5 CL (test code = 1116656288) 103 mmol/L 98-108 CO2 TOTAL (test code = 1650054768) 26 mmol/L 23-31 AGAP (test code = 0950064680) 2-16 BUN (test code = 9087822296) 10 mg/dL 7-23 GLUCOSE (test code = 9677590396) 121 mg/dL 70-110 H CREATININE (test code = 6798549500) 0.65 mg/dL 0.6-1.25 TOTAL BILI (test code = 0196071983) 0.8 mg/dL 0.1-1.1 CALCIUM (test code = 6370648673) 11.4 mg/dL 8.6-10.6 H T PROTEIN (test code = 2821571713) 7.2 g/dL 6.3-8.2 ALBUMIN (test code = 5974078369) 4.6 g/dL 3.5-5 ALK PHOS (test code = 5560070431) 112 U/L 34-122 ALTv (test code = 1742-6) 19 U/L 5-50 AST(SGOT) (test code = 5958670529) 26 U/L 13-40 eGFR (test code = 2180883203) mL/min/1.73m2 JUAN ALBERTO (test code = JUAN [...] imaging tests). Lab Interpretation (test code = 25142-0) Abnormal [facility] WITH [id number] 23:43:54* Test Item Value Reference Range Interpretation Comme nts WBC (test code = 6690-2) See_Comment [Automated [employer]] The system which generated this result transmitted reference range: 4.20 - 10.70 10*3/?L. The reference range was not used to interpret this result as normal/abnormal. RBC (test code = 789-8) See_Comment [[employer]] The system which generated this result transmitted [...] 34.4 g/dL 31.2-35 RDW-SD (test code = 05744-2) 44.0 fL 38.5-51.6 RDW-CV (test code = 788-0) 12.6 % 12.1-15.4 PLT (test code = 777-3) See_Comment [Automated messa ge] The system which generated this result transmitted reference range: 150 - 328 10*3/?L. The reference range was not used to interpret this result as normal/abnormal. MPV (test code = 81827-7) 9.1 fL 9.8-13 L NRBC/100 WBC (test code = 1462949664) See_Comment [Automated me [employer]age] The system which generated this result transmitted reference range: 0.0 - 10.0 /100 WBCs. The reference range was not used to interpret this result as normal/abnormal. NRBC x10^3 (test code = 1765571051) See_Comment [Automated messa ge] The system which generated this result transmitted reference range: 10*3/?L. The reference range was not used to interpret this result as normal/abnormal. GRAN MAT (NEUT) % (test code = 770-8) 69.8 % IMM GRAN % (test code = 4896572476) 0.40 % LYMPH % (test code = 736-9) 18.0 % MONO % (test code = 5905-5) 10.9 % EOS % (test code = 713-8) 0.1 % BASO % (test code = 706-2) 0.8 % GRAN MAT x10^3(ANC) (test code = 6117794329) 5.58 10*3/uL 1.99-6.95 IMM GRAN x10^3 (test code = 3365584559) 0.03 10*3/uL 0-0.06 LYMPH x10^3 (test code = 731-0) 1.44 10*3/uL 1.09-3.23 MONO x10^3 (test code = 742-7) 0.87 10*3/uL 0.36-1.02 EOS x10^3 (test code = 711-2) 0.06-0.53 L BASO x10^3 (test code = 704-7) 0.06 10*3/uL 0.01-0.09 Lab Interpretation (test code = 03237-1) [facility]-19 22:27:41* Test Item Value Reference Range Interpretation Comme nts POCT GLU (test code = 3434989341) 123 mg/dL 70-110 H Lab Interpretation (test cod e = 62314-6) [facility]SE (AUTOMATED)2021-12-30 22:08:16* Test Item Value Reference Range Interpretation Comme nts POCT GLU (test code = 4087977097) 167 mg/dL 70-110 H Lab Interpretation (test cod e = 89792-2) [facility] GLUCOSE (AUTOMATED)2021-12-30 16:50:40* Test Item Value Reference Range Interpretation Comme nts POCT GLU (test code = 7821478135) 154 mg/dL 70-110 H Lab Interpretation (test cod e = 78396-4) [facility]SE (AUTOMATED)2021-12-30 12:38:43* Test Item Value Reference Range Interpretation Comme nts POCT GLU (test code = 9528535942) 164 mg/dL 70-110 H Lab Interpretation (test cod e = 49594-2) [facility]SE (AUTOMATED)2021-12-30 02:14:58* Test Item Value Reference Range Interpretation Comme nts POCT GLU (test code = 7885001996) 220 mg/dL 70-110 H Lab Interpretation (test cod e = 80982-2) [facility]UCOSE (AUTOMATED)2021-12-29 21:50:02* Test Item Value Reference Range Interpretation Comme nts POCT GLU (test code = 1158915844) 191 mg/dL 70-110 H Lab Interpretation (test cod e = 66889-0) [facility]SE (AUTOMATED)2021-12-29 20:15:01* Test Item Value Reference Range Interpretation Comme nts POCT GLU (test code = 6777496918) 163 mg/dL 70-110 H Lab Interpretation (test cod e = 53614-0) [facility] 19:12:22* Test Item Value Reference Range Interpretation Comme nts Height (test code = 3854850888) in Weight (test code = 9617875791) lbs Systolic BP (test code = 1378033116) mmHg Diastolic BP (test code = 2164933363) mmHg Heart Rate (test code = 9434531965) bpm BSA (test code = 9464175914) 1.62 m2 Ao root annulus (test code = 3643755772) 2.45 cm Ao root diam (test code = 1297474030) 2.45 cm Aortic root (test code = 7706329366) 2.45 cm ACS (test code = 6190649338) 1.66 cm LA size (test code = 0063171547) 3.2 cm LVOT diameter (test code = 3819574504) 1.95 cm LVIDD (test code = 0077372149) 3.60 cm IVS (test code = 7208828673) 0.94 cm Interventricular Septum Diastolic Thickness by 2D (test code = 7473356) 0.94 cm LVPWD (test code = 9896244729) 0.80 cm PW (test code = 3478717770) 0.80 cm 0.6-1.1 EF(Teich) (test code = 3471466106) 52.80 % LVIDS (test code = 8705048262) 2.60 cm FS (test code = 5706612812) 27 % EF - 2D (test code = 62487126) 52.80 % LAV(MOD-sp4) (test code = 4892385266) 16.80 mL MV Peak E Jovany (test code = 2465110545) 46.1 cm/s E wave decelartion time (test code = 2166741553) 0.31 s MV Peak A Jovany (test code = 8574202656) 58.1 cm/s E/A ratio (test code = 9278635064) ratio MV E/e' septal (test code = 1218323670) 5.7 cm/s Tapse (test code = 3215822934) 1.60 cm LVOT stroke volume (test code = 4852716129) 52.10 cm3 LVOT peak jovany (test code = 4599434984) 110.6 cm/s LVOT mn grad (test code = 1792472781) mmHg AV LVOT peak gradient (test code = 0780225806) mmHg LVOT peak VTI (test code = 4033229091) 17.4 cm LV V1 mean (test code = 1956481743) 66.10 cm/s Aortic valve mean velocity (test code = 7756901841) 73.0 cm/s Ao peak jovany (test code = 2882821226) 124.6 cm/s Ao VTI (test code = 0442722413) 18.6 cm AV area by cont VTI (test code = 2300891551) 2.8 cm2 AV area peak jovany (test code = 0629949332) 2.7 cm2 Ao max PG (test code = 2835725482) 6.20 mm[Hg] AV peak gradient (test code = 5340035656) mmHg AV valve area (test code = 0863354631) 2.80 cm2 AV mean gradient (test code = 1031026583) mmHg Radiology Study observation (narrative) (test code = 60511-8) JUAN ALBERTO (test code = JUAN ALBERTO) [...] [facility] Lumason [facility] 12:50:31* Test Item Value Reference Range Interpretation Comme nts POCT GLU (test code = 7922173662) 141 mg/dL 70-110 H Lab Interpretation (test cod e = 14057-1) [facility] [id number] 10:38:31* Test Item Value Reference Range Interpretation Comments TROPONIN I (test code = 5662056756) 0.003 ng/mL See_Comment [Automated message] The system [...] of biotin. Lab Interpretation (test code = 55560-0) [facility] (67606)(TOTAL CHOLESTEROL, TRIGLYCERIDES, HDL)2021-12-29 05:56:47* Test Item Value Reference Range Interpretation Comme nts CHOL (test code = 0870278030) 168 mg/dL 120-200 HDL (test code = 9434657595) 102 mg/dL See_Comment [[employer]ated [employer]] The system which generated this result transmitted reference range: >=40. The reference range was not used to interpret this result as normal/abnormal. HDLC RATIO (test code = 8103897327) See_Comment [[employer]] The system which generated this result transmitted reference range: <=5.0. The reference range was not used to interpret this result as normal/abnormal. TRIG (test code = 4985981601) 55 mg/dL 30-170 LDL CHOL (test code = 35063-5) 55 mg/dL See_Comment [[employer]] The system which generated this result transmitted reference range: <=160. The reference range was not used to interpret this result as normal/abnormal. VLDL (test code = 5869649177) 11 mg/dL 5-60 Lab Interpretation (test code = 58126-5) [facility] HospitalThy[facility] Stimulating Hormone (TSH)2021-12-29 05:40:29* Test Item Value Reference Range Interpretation Comme nts TSH (test code = 4573566511) See_Comment Biotin has been reported to cause a negative bias, interpret results relative to patient's use of biotin. [Automated message] The system which generated this result transmitted reference range: 0.45 - 4.70 mIU/L. The reference range was not used to interpret this result as normal/abnormal. Lab Interpretation (test code = 48905-6) [facility] [id number] 05:34:29* Test Item Value Reference Range Interpretation Comments TROPONIN I (test code = 2650874783) 0.006 ng/mL See_Comment [Automated message] The system [...] of biotin. Lab Interpretation (test code = 94299-3) [facility]ETHANOL2022-[facility]-10 04:43:01 ALCOHOL<10mg/dL12/28/2021 11:43 PM [facility] Greater than or equal to 80 mg/dL. NOTE: Whole blood values are approximately 10% to 15% lower than serum and plasma.[facility] Glycosylated Hemoglobin (A1C)2021-12-29 01:51:44* Test Item Value Reference Range Interpretation Comme nts HGB A1C (test code = 4548-4) 6.5 % 4-5.7 H JUAN ALBERTO (test code = JUAN ALBERTO) Reference RangesNormal: <5.7%Prediabetes: 5.7 - 6.4%Diabetes: > 6.5% Lab Interpretation (test code = 93050-9) [facility] HospitalTROP[facility]IN [id number] 21:26:50* Test Item Value Reference Range Interpretation Comments TROPONIN I (test code = 2679290764) 0.002 ng/mL See_Comment [Automated message] The system [...] of biotin. Lab Interpretation (test code = 82024-6) Normal [facility] HospitalN-TERMINAL HYT-[id number] 21:23:29* Test Item Value Reference Range Interpretation Comme nts NT-proBNP (test code = 8311285560) 41 pg/mL See_Comment [Automated message] The system which generated this result transmitted reference range: <=125. The reference range was not used to interpret this result as normal/abnormal. JUAN ALBERTO (test code = JUAN ALBERTO) Biotin has been reported to cause a negative bias, interpret results relative to patient's use of biotin. Lab Interpretation (test code = 57641-6) [facility] HospitalAMMONIA, [id number] 21:20:38* Test Item Value Reference Range Interpretation Comme nts AMMONIA (test code = 1033484282) 9-33 L Slight hemolysis Lab Interpretation (test code = 41636-5) [facility]normal [facility] HospitalCOMP. METABOLIC PANEL (80701)2021-12-28 21:08:48* Test Item Value Reference Range Interpretation Comme nts NA (test code = 5282142120) 137 mmol/L 135-145 K (test code = 5385185005) 4.5 mmol/L 3.5-5 CL (test code = 8150375489) 97 mmol/L 98-108 L CO2 TOTAL (test code = 5271297955) 29 mmol/L 23-31 AGAP (test code = 9583007084) 2-16 BUN (test code = 4055738828) 10 mg/dL 7-23 GLUCOSE (test code = 4406550305) 188 mg/dL 70-110 H CREATININE (test code = 0204191481) 0.58 mg/dL 0.6-1.25 L TOTAL BILI (test code = 2666410720) 0.8 mg/dL 0.1-1.1 CALCIUM (test code = 5322181155) 10.5 mg/dL 8.6-10.6 T PROTEIN (test code = 2511726473) 7.6 g/dL 6.3-8.2 ALBUMIN (test code = 6846549506) 4.5 g/dL 3.5-5 ALK PHOS (test code = 9672784911) 107 U/L 34-122 ALTv (test code = 1742-6) 66 U/L 5-50 H AST(SGOT) (test code = 4890092383) 96 U/L 13-40 H eGFR (test code = 2439586560) mL/min/1.73m2 JUAN ALBERTO (test code = JUAN [...] imaging tests). Lab Interpretation (test code = 01449-4) Abnormal [facility] HospitalPROTHROMBIN TIME / [id number] 21:01:25* Test Item Value Reference Range Interpretation Comme nts PROTIME PATIENT (test code = 5964-2) See_Comment [Automated [employer]] The system which generated this result transmitted reference range: 12.0 - 14.7 Seconds. The reference range was not used to interpret this result as normal/abnormal. INR (test code = 6301-6) Normal INR <1.1; Warfarin Therapeutic range 2.0 to 3.0 or 2.5 to 3.5, depending upon the indications. Lab Interpretation (test code = 61237-7) [facility] HospitalCBC WITH [id number] 20:54:03* Test Item Value Reference Range Interpretation Comme nts WBC (test code = 6690-2) See_Comment [[employer]] The system which generated this result transmitted reference range: 4.20 - 10.70 10*3/?L. The reference range was not used to interpret this result as normal/abnormal. RBC (test code = 789-8) See_Comment [[employer]] The system which generated this result transmitted [...] 34.2 g/dL 31.2-35 RDW-SD (test code = 21839-1) 47.8 fL 38.5-51.6 RDW-CV (test code = 788-0) 13.3 % 12.1-15.4 PLT (test code = 777-3) See_Comment [[employer]] The system which generated this result transmitted reference range: 150 - 328 10*3/?L. The reference range was not used to interpret this result as normal/abnormal. MPV (test code = 01096-7) 8.6 fL 9.8-13 L NRBC/100 WBC (test code = 9746602871) See_Comment [[employer]ated [employer]] The system which generated this result transmitted reference range: 0.0 - 10.0 /100 WBCs. The reference range was not used to interpret this result as normal/abnormal. NRBC x10^3 (test code = 8003236912) See_Comment [[employer]] The system which generated this result transmitted reference range: 10*3/?L. The reference range was not used to interpret this result as normal/abnormal. GRAN MAT (NEUT) % (test code = 770-8) 64.1 % IMM GRAN % (test code = 1215455703) 0.40 % LYMPH % (test code = 736-9) 16.6 % MONO % (test code = 5905-5) 17.2 % EOS % (test code = 713-8) 0.2 % BASO % (test code = 706-2) 1.5 % GRAN MAT x10^3(ANC) (test code = 4989761924) 3.47 10*3/uL 1.99-6.95 IMM GRAN x10^3 (test code = 2196469797) 0-0.06 LYMPH x10^3 (test code = 731-0) 0.90 10*3/uL 1.09-3.23 L MONO x10^3 (test code = 742-7) 0.93 10*3/uL 0.36-1.02 EOS x10^3 (test code = 711-2) 0.06-0.53 L BASO x10^3 (test code = 704-7) 0.08 10*3/uL 0.01-0.09 Lab Interpretation (test code = 70845-3) [facility]normal [facility] HospitalEthanol [id number] 21:08:00* Test Item Value Reference Range Interpretation Comme nts Ethanol (test code = ETOH) < 3 mg/dL The pharmacologi yudy response to blood alcohol levels mayvary from individual to individual. The fatal concentrationhas been reported to be >400mg/dL. Complete Blood Count Auto [id number] 17:33:00* Test Item Value Reference Range Interpretation [...] = NRBCP) 0 % UA, Urinalysis Rflx Cult/[id number] 17:33:00* Test Item Value Reference Range Interpretation Comme nts Color,Urine (test code = UCOL) Dark Yellow Yellow A Clarity,Urine (test code = UCLAR) Clear Clear Ph, Urine (test code = UPH) 6.5 5.0-9.0 N Specific [place],Urine (test code = USG) 1.015 1.005-1.030 N [...] = ULEU) Trace mg/dL Negative A Urine [id number] 17:33:00* Test Item Value Reference Range Interpretation Comme nts RBC,Urine (test code = URBCUF) None Seen /HPF 0-2 WBC,Urine (test code = UWBCUF) 0-5 /HPF 0-5 Epithelial Cell,Urine (test code = UECUF) 0-5 /HPF 0-5 Casts,Urine (test code = UCASTUF) None Seen /LPF None Seen Bacteria,Urine (test code = UBACTUF) None Seen /hpf None Seen Drug Screen,[id number] 17:33:00* Test Item Value Reference Range Interpretation [...] code = UPROP) Negative Negative Comprehensive Metabolic [id number] 17:33:00* Test Item Value Reference Range Interpretation [...] 101 U/L 46-116 N Sars-CoV-2/FLU A/B RSV [id number] 17:31:00* Test Item Value Reference Range Interpretation [...] SARS-CoV-2 PCR Result:) Negative by RT-PCR Drug Screen,[id number] 17:20:00* Test Item Value Reference Range Interpretation [...] UPROP) Negative Negative Complete Blood Count Auto [id number] 17:14:00* Test Item Value Reference Range Interpretation [...] code = NRBCP) 0 % Comprehensive Metabolic [id number] 17:14:00* Test Item Value Reference Range Interpretation [...] = ALP) 207 U/L 46-116 H Ethanol [id number] 17:14:00* Test Item Value Reference Range Interpretation Comme nts Ethanol (test code = ETOH) 192 mg/dL Complete Blood Count Auto [id number] 20:20:00* Test Item Value Reference Range Interpretation [...] code = NRBCP) 0 % Comprehensive Metabolic [id number] 20:20:00* Test Item Value Reference Range Interpretation [...] = ALP) 189 U/L 46-116 H Ethanol [id number] 20:20:00* Test Item Value Reference Range Interpretation Comme nts Ethanol (test code = ETOH) 10 mg/dL Sars-CoV-2/FLU A/B RSV [id number] 20:20:00* Test Item Value Reference Range Interpretation [...] Negative by Nucleic Acid Amplification UA, Urinalysis Iarzqoiejka2460-89-74 20:20:00* Test Item Value Reference Range Interpretation Comme nts Color,Urine (test code = UCOL) Yellow Y Clarity,Urine (test code = UCLAR) Clear Clear PH,Urine (test code = UPH.XX) 7.0 5.5-8.5 Specific [place],Urine (test code = USG) 1.020 1.005-1.030 N [...] code = ULEU) Negative cells/uL Negative Drug Screen,[id number] 20:20:00* Test Item Value Reference Range Interpretation [...] RESULT TO MICHAELA TRACY CT head/brain wo [facility] [address] [place] [address] Patient Name: Walt Velazquez Medical Record#: [id number] Address: Homeless City/State/Zip: [place] [address]: Vinnie Navarro MD Phone: Insurance: Self Pay /Age/Sex: 1970/50/M Admit/Reg Date: 09/17/[address]: Vinnie Navarro MD Location: [facility]/ PCP: Md KERWIN Flores Date of Service: 09/17/21 Order (s): CT head/brain wo con CPT Code: 55401 Report Number: [id number] Reason for Exam: Altered mental status Location [...] Karen Jay MD 09/17/2021 6:42 PM CDTWorkstation: [id number] Dictated By: Karen Sanders MD 09/17/211824 Signed By: Karen Sanders MD 09/17/211824 TD/TT: 09/17/211824 Tech: ES135 cc: JOSEE; GENESIS* Vinnie Navarro MD; Pcp-Md KERWIN Stiles"
[2023-09-22] MEDS ORDERED: THIAMINE HCL 100 MG TABLET ONE (00:24)
[2023-09-22] MEDS ORDERED: DIPHENHYDRAMINE 50 MG/ML VIAL ONE (00:24)
--- NOTE | 2023-09-22 06:34 | EDPHYS ---
Physician Documentation [facility] Name: Walt Velazquez Age: 52 yrs Sex: Male : 1970 Arrival Date: 09/21/2023 Time: 22:39 Bed 17 Private MD: ED Physician Jules Lucero HPI: 09/20 22:48 This 52 yrs old Male presents to ER via EMS with complaints of Altered Mental sp4 Status. 09/21 03:55 52-year-old male with history of alcoholism presents with EMS after he became altered sp4 at the restaurant where he consumed a beer. On arrival patient does appear intoxicated secondary to alcohol use. Patient denies any specific complaints but appears moderately intoxicated. . Historical: - Allergies: 09/20 22:47 Trazodone; lg3 - PMHx: 22:47 Alcoholism; Bipolar II; Hypertensive disorder; Parkinsons; Seizure; lg3 - PSHx: 22:47 Unable to Obtain; lg3 - Immunization history:: Adult Immunizations unknown. - Infectious Disease History:: Denies. - Social history:: Smoking status: Patient reports the use of cigarette tobacco products, smokes one pack cigarettes per day. Patient uses alcohol, on a daily basis. patient/guardian reports chronic longstanding heavy alcohol consumption. patient/guardian reports recent binge of alcohol consumption. Patient/guardian denies using street drugs. - Family history:: not pertinent. ROS: 09/21 03:55 Constitutional: Negative for fever, chills, and weight loss, positive for intoxication sp4 All other systems are negative, Exam: 03:55 Constitutional: This is a well developed, well nourished patient who is awake, alert, sp4 and in no acute distress. Moderate to heavy intoxication. Head/Face: Normocephalic, atraumatic. Eyes: Pupils equal round and reactive to light, extra-ocular motions intact. Lids and lashes normal. Conjunctiva and sclera are not injected. Cornea within normal limits. Periorbital areas with no swelling, redness, or edema. ENT: Nares patent. No nasal discharge, no septal abnormalities noted. Tympanic membranes are normal and external auditory canals are clear. Oropharynx with no redness, swelling, or masses, exudates, or evidence of obstruction, uvula midline. Mucous membranes moist. Neck: Trachea midline, no thyromegaly or masses palpated, and no cervical lymphadenopathy. Supple, full range of motion without nuchal rigidity, or vertebral point tenderness. Chest/axilla: Normal chest wall appearance and motion. Nontender with no deformity. No lesions are appreciated. Cardiovascular: Regular rate and rhythm with a normal S1 and S2. No gallops, murmurs, or rubs. Normal PMI, no JVD. No pulse deficits. Respiratory: Lungs have equal breath sounds bilaterally, clear to auscultation and percussion. No rales, rhonchi or wheezes noted. No increased work of breathing, no retractions or nasal flaring. Abdomen/GI: Soft, with normal bowel sounds. No distension or tympany. No guarding or rebound. No evidence of tenderness throughout. Back: No spinal tenderness. No costovertebral tenderness. Skin: Warm, dry with normal turgor. Normal color with no rashes, no lesions, and no evidence of cellulitis. MS/ Extremity: Pulses equal, no cyanosis. Neurovascular intact. Full, normal range of motion. Neuro: Awake and alert, GCS 15, oriented to person, place, Cranial nerves II-XII grossly intact. Motor strength 5/5 in all extremities. Exam is limited secondary to intoxication. Grossly no lateralizing deficits. Vital Signs: 09/20 22:49 BP 118 / 84; Pulse 88; Resp 17 S; Temp 97.6(TE); Pulse Ox 100% on R/A; Weight 63.5 kg lg3 (R); Height 5 ft. 3 in. (R); 09/21 01:23 BP 114 / 65; Pulse 81; Resp 17; Temp 97.8; Pulse Ox 96% on R/A; vk 02:17 BP 105 / 58; Pulse 72; Resp 16; Pulse Ox 97% on R/A; Pain 0/10; pf1 03:00 BP 106 / 52; Pulse 74; Resp 16; Pulse Ox 99% on R/A; pf1 04:00 BP 107 / 57; Pulse 73; Resp 16; Pulse Ox 99% on R/A; pf1 05:00 BP 106 / 63; Pulse 71; Resp 16; Pulse Ox 98% on R/A; pf1 06:00 BP 116 / 55; Pulse 85; Resp 16; Temp 97.9; Pulse Ox 97% on R/A; Pain 0/10; pf1 09/20 22:49 Body Mass Index 24.80 (63.50 kg, 160.02 cm) lg3 02:17 Pain Scale: Adult pf1 06:00 Pain Scale: Adult pf1 [place] Coma Score: 03:55 Eye Response: spontaneous(4). Motor Response: obeys commands(6). Verbal Response: sp4 oriented(5). Total: 15. MDM: 09/20 22:53 Patient medically screened. sp4 09/21 03:57 Differential Diagnosis: overdose, seizure, volume depletion, Alcohol intoxication . sp4 Data reviewed: vital signs, nurses notes, EMS record, old medical records. 06:27 Consideration of Admission/Observation Escalation of care including sp4 admission/observation considered. ED course: Patient was allowed to sleep off his alcohol and now stable for discharge home. Administered Medications: 00:52 Drug: diphenhydrAMINE IM 50 mg IM once Route: IM; Site: left deltoid; vc1 01:50 Follow up: Response: No adverse reaction; Marked relief of symptoms pf1 00:52 Drug: Thiamine PO 100 mg PO once Route: PO; vc1 01:50 Follow up: Response: No adverse reaction; Marked relief of symptoms pf1 Disposition Summary: 09/22/23 06:33 Discharge Ordered Notes: Location: Home sp4 Problem: new sp4 Symptoms: have improved sp4 Condition: Stable sp4 Diagnosis - Alcohol abuse with intoxication sp4 Followup: sp4 - With: Private Physician - When: 7 - 10 days - Reason: Recheck today's complaints Discharge Instructions: - Discharge Summary Sheet sp4 - Alcohol Intoxication sp4 Signatures: Sara Wakefield RN RN lg3 Niecy Roberto RN RN vc1 Jules Lucero MD MD sp4 Iman Alonzo RN pf1
--- NOTE | 2023-09-22 06:34 | ER ---
Nurse's Notes [facility] Name: Walt Velazquez Age: 52 yrs Sex: Male : 1970 Arrival Date: 09/21/2023 Time: 22:39 Bed 17 Private MD: Diagnosis: Alcohol abuse with intoxication Presentation: 09/20 22:41 Chief complaint: EMS states: called by [facility] stating PT has AMS. On EMS lg3 arrival PT states he hurt all over and requested to come to ED. Coronavirus screen: Client denies travel out of the [place] in the last 14 days. At this time, the client does not indicate any symptoms associated with coronavirus-19. Ebola Screen: No symptoms or risks identified at this time. Risk Assessment: Do you want to hurt yourself or someone else? Patient reports no desire to harm self or others. Onset of symptoms is unknown. 22:41 Method Of Arrival: EMS: [facility] lg3 22:41 Acuity: LATASHA 3 lg3 22:49 Initial Sepsis Screen: Does the patient meet any 2 criteria? No. Patient's initial lg3 sepsis screen is negative. Does the patient have a suspected source of infection? No. Patient's initial sepsis screen is negative. Triage Assessment: 22:47 General: Appears in no apparent distress. unkempt, Behavior is calm. General: Smells of lg3 alcohol. Pain: Denies pain. EENT: No deficits noted. No signs and/or symptoms were reported regarding the EENT system. Neuro: Kinsey Agitation-Sedation Scale (RASS): -1 Drowsy. Cardiovascular: No deficits noted. Denies chest pain, shortness of breath, Capillary refill < 3 seconds Clubbing of nail beds is absent JVD is absent Patient's skin is warm and dry. Respiratory: No deficits noted. Airway is patent Respiratory effort is even, unlabored, Respiratory pattern is regular, symmetrical. GI: No deficits noted. No signs and/or symptoms were reported involving the gastrointestinal system. Abdomen is round non-distended. : No deficits noted. No signs and/or symptoms were reported regarding the genitourinary system. Derm: No deficits noted. No signs and/or symptoms reported regarding the dermatologic system. Skin is intact, is healthy with good turgor, Skin is dry, Skin is normal, Skin temperature is warm. Musculoskeletal: No deficits noted. No signs and/or symptoms reported regarding the musculoskeletal system. Circulation, motion, and sensation intact. Range of motion: intact in all extremities. Historical: - Allergies: 22:47 Trazodone; lg3 - PMHx: 22:47 Alcoholism; Bipolar II; Hypertensive disorder; Parkinsons; Seizure; lg3 - PSHx: 22:47 Unable to Obtain; lg3 - Immunization history:: Adult Immunizations unknown. - Infectious Disease History:: Denies. - Social history:: Smoking status: Patient reports the use of cigarette tobacco products, smokes one pack cigarettes per day. Patient uses alcohol, on a daily basis. patient/guardian reports chronic longstanding heavy alcohol consumption. patient/guardian reports recent binge of alcohol consumption. Patient/guardian denies using street drugs. - Family history:: not pertinent. Screenin:55 [facility] ED Fall Risk Assessment (Adult) History of falling in the last 3 months, lg3 including since admission No falls in past 3 months (0 pts). Abuse screen: Denies threats or abuse. Denies injuries from another. Nutritional screening: No deficits noted. Tuberculosis screening: No symptoms or risk factors identified. Assessment: 22:55 General: see triage assessment . lg3 02 01:48 Reassessment: No changes from previously documented assessment. Patient and/or family vc1 updated on plan of care and expected duration. Pain level reassessed. Patient is alert, oriented x 3, equal unlabored respirations, skin warm/dry/pink. 02:30 Reassessment: Patient appears in no apparent distress at this time. Patient and/or pf1 family updated on plan of care and expected duration. Pain level reassessed. 03:30 Reassessment: Patient appears in no apparent distress at this time. No changes from pf1 previously documented assessment. Patient and/or family updated on plan of care and expected duration. Pain level reassessed. 04:22 Reassessment: Patient appears in no apparent distress at this time. No changes from pf1 previously documented assessment. Patient and/or family updated on plan of care and expected duration. Pain level reassessed. 05:26 Reassessment: Patient appears in no apparent distress at this time. No changes from pf1 previously documented assessment. Patient and/or family updated on plan of care and expected duration. Pain level reassessed. Patient is alert, oriented x 3, equal unlabored respirations, skin warm/dry/pink. 06:30 Reassessment: Patient appears in no apparent distress at this time. Patient and/or pf1 family updated on plan of care and expected duration. Pain level reassessed. Patient is alert, oriented x 3, equal unlabored respirations, skin warm/dry/pink. Patient states feeling better. Patient states symptoms have improved. Vital Signs: 09/20 22:49 BP 118 / 84; Pulse 88; Resp 17 S; Temp 97.6(TE); Pulse Ox 100% on R/A; Weight 63.5 kg lg3 (R); Height 5 ft. 3 in. (R); 09/21 01:23 BP 114 / 65; Pulse 81; Resp 17; Temp 97.8; Pulse Ox 96% on R/A; vk 02:17 BP 105 / 58; Pulse 72; Resp 16; Pulse Ox 97% on R/A; Pain 0/10; pf1 03:00 BP 106 / 52; Pulse 74; Resp 16; Pulse Ox 99% on R/A; pf1 04:00 BP 107 / 57; Pulse 73; Resp 16; Pulse Ox 99% on R/A; pf1 05:00 BP 106 / 63; Pulse 71; Resp 16; Pulse Ox 98% on R/A; pf1 06:00 BP 116 / 55; Pulse 85; Resp 16; Temp 97.9; Pulse Ox 97% on R/A; Pain 0/10; pf1 09/20 22:49 Body Mass Index 24.80 (63.50 kg, 160.02 cm) lg3 02:17 Pain Scale: Adult pf1 06:00 Pain Scale: Adult pf1 Mariia Coma Score: 03:55 Eye Response: spontaneous(4). Motor Response: obeys commands(6). Verbal Response: sp4 oriented(5). Total: 15. ED Course: 09/20 22:40 Patient arrived in ED. jj6 22:47 Triage completed. lg3 22:47 Jules Lucero MD is Attending Physician. sp4 22:47 Arm band placed on left wrist. lg3 22:55 Patient taken to [facility]. lg3 22:55 Patient has correct armband on for positive identification. lg3 22:55 Maintain EMS IV. Dressing intact. Good blood return noted. Site clean \T\ dry. Gauge \T\ lg 3 site: 20 RAC. Patient maintains SpO2 saturation greater than 95% on room air. 09/21 00:52 Niecy Roberto, RN is Primary Nurse. vc1 06:41 No provider procedures requiring assistance completed. IV discontinued, intact, pf1 bleeding controlled, No redness/swelling at site. Pressure dressing applied. 06:48 Provided Education on: follow up. pf1 Administered Medications: 00:52 Drug: diphenhydrAMINE IM 50 mg IM once Route: IM; Site: left deltoid; vc1 01:50 Follow up: Response: No adverse reaction; Marked relief of symptoms pf1 00:52 Drug: Thiamine PO 100 mg PO once Route: PO; vc1 01:50 Follow up: Response: No adverse reaction; Marked relief of symptoms pf1 Medication: 09/20 22:55 VIS not applicable for this client. lg3 Outcome: 09/21 06:33 Discharge ordered by . ravinder 06:48 Patient left the ED. pf1 06:48 Discharged to home via wheelchair, pf1 06:48 Condition: stable 06:48 Discharge instructions given to patient, Instructed on discharge instructions, follow up and referral plans. Demonstrated understanding of instructions, follow-up care, Signatures: Sara Wakefield RN RN lg3 Tracie Wuj6 Niecy Roberto RN RN vc1 Iman Alonzo RN RN pf1 Jules Lucero MD MD sp4 Mae Lizama
[2023-09-22 15:53] VITALS: BP 116/55; TEMP 97.9; O2SAT 97
== END 2023-09-22 06:48 | disposition home or self-care (01) ==
LOC: ER 22:39
DX: F10.229 Alcohol dependence with intoxication, unspecified (principal)
CPT/HCPCS: 96372; 99285; J1200

== ENCOUNTER 2023-09-25 13:59 | Emergency (ER) | payer SELFPAY ==
[2011-10-24 19:41] VITALS: BP 138/81
--- OUTSIDE RECORDS SUMMARY | 2023-09-25 14:05 | XMS REPORT | Continuity of Care Document ---
Author Name Unknown Address [address] [facility]. [address] [place] [address] [facility] Address [address] [facility]. [address] [place] [address] Care Team Providers Care Digital Producer Name Role Phone Pcp-None Primary Care Physician Unavailab HEMANT Adame Attending Clinician Unavailable Hemant Klein MD Attending Clinician [phone] Pan Pinto Attending Clinician Unavailab JESSICA Gallardo Attending Clinician Unavailable Rayray Driscoll MD Attending Clinician [phone] Jessica Prado MD Attending Clinician [phone] Oswald Murphy MD Attending Clinician [phone] DIYA CHOWDHURY Attending Clinician Unavailab Diya Mackey DO Attending Clinician [phone] Fidel Cuellar Attending Clinician Unavailable DIRK YARBROUGH Attending Clinician Unavailable Leticia Rowland Attending Clinician [phone] iDrk Yarbrough MD Attending Clinician [phone] Faye Portillo LVN Attending Clinician [phone] Pia Reddy Attending Clinician [phone] Vinnie Navarro Attending Clinician Unavailable OSWALD MURPHY Admitting Clinician Unavailable Oswald Murphy MD Admitting Clinician [phone] DIYA CHOWDHURY Admitting Clinician UnavailLeticia Gaytan Admitting Clinician Unavailable JESSICA PRADO Admitting Clinician Unavailable Jessica Prado MD Admitting Clinician [phone] Payers Payer Name Policy Type Policy Number Effective Date Expirati on Date Source [facility] [id number] 2022 00:00:00 Problems Condition Name Condition Details Condition Category Status Onset Date Resolution Date Last Treatment Date Treating Clinician Comments Source Alcohol withdrawal syndrome with complicati on Alcohol withdrawal syndrome with complicati on Disease Active 08-10 00:00: 00 [facility] Type 2 diabetes mellitus with other specified complicati on Type 2 diabetes mellitus with other specified complicati on Disease Active 12-29 00:00: 00 [facility] Dyslipidem ia Dyslipidem ia Disease Active 12-29 00:00: 00 [facility] Chest pain, unspecifie d type Chest pain, unspecifie d type Disease Active 12-28 00:00: 00 [facility] Priapism Priapism Disease Active 2013-06 1-06 00:00: 00 [facility] Allergies, Adverse Reactions, Alerts Allergy Name Allergy Type Status Severity Reaction(s) Onset Date Inactive Date Treating Clinician Comments Source No Known Drug Allergie s DA Active U 4-25 00:00: 00 [facility] No Known Drug Allergie s DA Active U 0 9-16 00:00: 00 [facility] No Known Drug Allergie s DA Active U 0 3-29 00:00: 00 [facility] No Known Drug Allergie s DA Active U 2019-06 2-16 00:00: 00 [facility] No Known Drug Allergie s DA Active U 2019-06 2-15 00:00: 00 [facility] No Known Drug Allergie s DA Active U 2019-06 2-02 00:00: 00 [facility] Trazodon e Propensi ty to adverse reaction s Active Other - See comments 10-06 00:00: 00 [facility] TRAZODON E DRUG INGREDI Active Other-Cmnt 10-06 00:00: 00 [facility] Social History Social Habit Start Date Stop [...] 1 dose, On Thu11/11/22 at 1445, STAT [facility] multivitami n tablet 1 tablet 08-12 15:00: 00 Yes 1{tbl} 1 tablet, Oral, DAILY, First dose on Thu08/12/22 at 0900, Until Discontinu ed, Routine [facility] foLIC acid (FOLATE) tablet 1 mg 08-12 15:00: 00 Yes 1mg 1 mg, Oral, DAILY, First dose on Thu08/12/22 at 0900, Until Discontinu ed, Routine [facility] foLIC acid 1 mg tablet 08-12 00:00: 00 09-12 04:59 :00 No [id number] 1mg Take 1 tablet by mouth in the morning for 30 days. [facility] oxazepam (SERAX) capsule 15 mg 08-11 20:00: [...] Thu08/13/22 at 0600, Routine [Order 2 End] [facility] thiamine (VITAMIN B1) tablet 100 mg 08-11 16:15: 00 Yes 100mg 100 mg, Oral, DAILY, First dose on Thu08/11/22 at 1015, Until Discontinu ed, Routine [facility] enoxaparin (LOVENOX) injection 40 mg 08-10 23:00: 00 Yes 40mg 40 mg, Subcutaneo us, DAILY, First dose on Thu08/10/22 at 1700, Until Discontinu ed, Routine [facility] NaCl 0.9% (NS) IV infusion 1,000 mL 08-10 15:00: 00 Yes 1000mL at 125 mL/hr, IV Infusion, CONTINUOUS , Starting on Thu08/10/22 at 0900, Until Discontinu ed, Routine [facility] foLIC acid (FOLATE) 5 mg in NaCl 0.9% (NS) piggyback 08-10 15:00: 00 08-11 16:14 :47 No 5mg IV Piggyback, DAILY, First dose on Thu08/10/22 at 0900, Until Discontinu ed, 50 mL [facility] thiamine (VITAMIN B1) 100 mg in NaCl 0.9% (NS) piggyback 08-10 15:00: 00 08-10 16:08 :00 No 100mg IV Piggyback, DAILY, 1 dose, First dose on Thu08/10/22 at 0900, 50 mL [facility] LORazepam (ATIVAN) injection 2 mg 08-10 14:52: 57 Yes 2mg 2 mg, Slow IV Push, Q4HPRN, Starting on 08/10/22 at 0852, Until Discontinu ed, Routine, Seizures, Agitation, Anxiety [facility] Sliding Scale Insulin-Reg ular + Fsbg Testing 08-10 13:30: 00 Yes Subcutaneo us, AC+HS, First dose on Thu08/10/22 at 0730, Until Discontinu ed, Routine [facility] oxazepam (SERAX) capsule 15 mg 08-10 12:08: 05 Yes 15mg 15 mg, Oral, Q4HPRN, Starting on 08/10/22 at 0608, Until Discontinu ed, Routine, Only while awake for DBP equal to or greater than 100, HR equal to or greater than 100. [facility] dextrose 10% (D10W) bolus infusion 250 mL [...] unable to swallow or has mental changes. [facility] ondansetron (ZOFRAN (PF)) injection 4 mg 08-10 12:02: 53 Yes 4mg 4 mg, Slow IV Push, Q6HPRN, Starting on Thu08/10/22 at 0602, Until Discontinu ed, Routine, Nausea and Vomiting (N/V) [facility] ibuprofen (MOTRIN IB) tablet 200 mg 08-10 12:02: 45 Yes 200mg 200 mg, Oral, Q6HPRN, Starting on Thu08/10/22 at 0602, Until Discontinu ed, Routine, Pain (scale 1-3) [facility] NaCl 0.9% (NS) bolus infusion 1,000 mL 08-10 10:15: 00 08-10 13:00 :00 No 1000mL at 999 mL/hr, 1,000 mL, IV Infusion, ONCE, 1 dose, On Thu08/10/22 at 0415, STAT [facility] LORazepam (ATIVAN) injection 0.5 mg 08-10 09:15: 00 08-10 09:19 :00 No .5mg 0.5 mg, Slow IV Push, ONCE, 1 dose, On Thu08/10/22 at 0315, STAT [facility] LORazepam (ATIVAN) injection 1 mg 08-10 08:00: 00 08-10 07:05 :00 No 1mg 1 mg, Slow IV Push, ONCE NOW, 1 dose, On Thu08/10/22 at 0200, STAT [facility] thiamine (VITAMIN B1) injection 100 mg 08-10 06:45: 00 08-10 06:52 :00 No 100mg 100 mg, Intravenou s, ONCE, 1 dose, On 08/10/22 at 0045, JACIEL [facility] LORazepam (ATIVAN) injection 1 mg 08-10 05:15: 00 08-10 05:22 :00 No 1mg 1 mg, Slow IV Push, ONCE, 1 dose, On 08/09/22 at 2315, STAT [facility] ketorolac (TORADOL) injection 15 mg 2021-06 16:00: 00 04-06 14:50 :00 No 15mg 15 mg, Slow IV Push, ONCE, 1 dose, On 04/06/22 at 1100, [facility] ondansetron (ZOFRAN (PF)) injection 4 mg 2021-06 15:45: 00 04-06 14:50 :00 No 4mg 4 mg, Slow IV Push, ONCE, 1 dose, On 04/06/22 at 1045, [facility] oxazepam (SERAX) capsule 15 mg 12-31 06:28: 17 01-01 06:29 :00 No 15mg 15 mg, Oral, Q12H TAPER, 2 doses, First dose on Thu12/31/21 at 0130, Last dose on Thu12/31/21 at 1330, Routine [facility] multivitami n tablet 12-31 00:00: 00 Yes [id number] 1{tbl} Take 1 tablet by mouth in the morning. [facility] thiamine 100 mg tablet 12-31 00:00: 00 Yes [id number] 100mg Take 1 tablet by mouth in the morning. [facility] aspirin 81 mg chewable tablet 12-31 00:00: 00 Yes [id number] 81mg Take 1 tablet by mouth in the morning. [facility] foLIC acid 1 mg tablet 12-31 00:00: 00 01-31 04:59 :00 No [id number] 1mg Take 1 tablet by mouth in the morning for 30 days. [facility] metFORMIN 500 mg tablet 12-30 00:00: 00 Yes [id number] 500mg Take 1 tablet by mouth in the morning and 1 tablet in the evening. Take with meals. [facility] aspirin chewable tablet 81 mg 12-29 14:00: 00 Yes 81mg 81 mg, Oral, DAILY, First dose on 12/29/21 at 0900, Until Discontinu ed, Routine [facility] sulfur hexafluorid e microsphr (LUMASON) injection 5 mL 12-29 13:45: 00 12-29 13:45 :00 No [id number] 5mL 5 mL, Intravenou s, ONCE, 1 dose, On 12/29/21 at 0845, Routine
body team member approving Restricted medication : STEFANIE GORMAN [facility] enoxaparin (LOVENOX) injection 40 mg 12-29 13:00: 00 Yes 40mg 40 mg, Subcutaneo us, Q24H, First dose on 12/29/21 at 0800, Until Discontinu ed, Routine [facility] Sliding Scale Insulin - Lispro (HumaLOG) + Fsbg Testing 12-29 13:00: 00 Yes Subcutaneo us, TID MEALS+HS, First dose on 12/29/21 at 0800, Until Discontinu ed, Routine [facility] diazePAM (VALIUM) injection 10 mg 12-29 05:30: 00 12-29 04:40 :00 No 10mg 10 mg, Intravenou s, ONCE, 1 dose, On 12/29/21 at 0030, Routine [facility] diazePAM (VALIUM) injection 10 mg 12-29 04:15: 00 12-29 03:17 :00 No 10mg 10 mg, Intravenou s, ONCE, 1 dose, On 12/28/21 at 2315, Routine [facility] diazePAM (VALIUM) injection 5 mg 12-29 03:45: 01 Yes 5mg 5 mg, Intravenou s, QIDPRN, Starting on 12/28/21 at 2245, Until Discontinu ed, Routine, Seizures, Agitation [facility] foLIC acid (FOLATE) tablet 1 mg 12-29 03:45: 00 Yes 1mg 1 mg, Oral, DAILY, First dose on 12/28/21 at 2245, Until Discontinu ed, Routine [facility] thiamine (VITAMIN B1) tablet 100 mg 12-29 03:45: 00 Yes 100mg 100 mg, Oral, DAILY, First dose (after last modificati on) on 12/28/21 at 2245, Until Discontinu ed, Routine [facility] glucagon (GLUCAGEN DIAGNOSTIC KIT) injection 1 mg 12-29 03:42: 19 Yes 1mg 1 mg, Intramuscu lar, PRN, Starting on 12/28/21 at 2242, Until Discontinu ed, JACIEL, Blood Glucose < or = 70 mg/dL and patient is unable to swallow or has mental changes. [facility] dextrose 10% (D10W) bolus infusion 250 mL [...] blood glucose is < 80 mg/dL, repeat.
[facility] LORazepam (ATIVAN) injection 1 mg 12-29 03:30: 00 12-29 02:32 :00 No 1mg 1 mg, Intravenou s, ONCE, 1 dose, On 12/28/21 at 2230, Routine
Is the medication being used for status epilepticu s? No [facility] oxazepam (SERAX) capsule 15 mg 12-29 00:28: 20 Yes 15mg 15 mg, Oral, Q4HPRN, Starting on 12/28/21 at 1928, Until Discontinu ed, Routine, Only while awake for DBP equal to or greater than 100, HR equal to or greater than 100. [facility] ondansetron (ZOFRAN (PF)) injection 4 mg 12-29 00:23: 47 Yes 4mg 4 mg, Slow IV Push, Q6HPRN, Starting on 12/28/21 at 1923, Until Discontinu ed, Routine, Nausea and Vomiting (N/V) [facility] acetaminoph en (TYLENOL) tablet 650 mg 12-29 00:23: 37 Yes 650mg 650 mg, Oral, Q6HPRN, Starting on 12/28/21 at 192, Until Discontinu ed, Routine, Pain (scale 1-3), Temp > 38.5 C [facility] chlordiazeP OXIDE (LIBRIUM) capsule 25 mg 12-28 23:15: 00 12-28 23:24 :00 No 25mg 25 mg, Oral, ONCE, 1 dose, On 12/28/21 at 1815, [facility] NaCl 0.9% (NS) bolus infusion 2,000 mL 12-28 22:45: 00 12-28 23:18 :00 No 2000mL at 999 mL/hr, 2,000 mL, IV Infusion, ONCE, 1 dose, On 12/28/21 at 1745, [facility] LORazepam (ATIVAN) injection 1 mg 12-28 20:45: 00 12-28 20:49 :00 No 1mg 1 mg, Slow IV Push, ONCE, 1 dose, On 12/28/21 at 1545, STAT
Is the medication being used for status epilepticu s? No [facility] acetaminoph en (TYLENOL) 500 mg tablet 17 00:00: 00 Yes 500mg Take 1 Tab by mouth every 6 (six) hours as needed for Pain. [facility] Vital Signs Vital Name Observation Time Observation Value Comments Veronica xiong Systolic blood pressure 2022-11-11 20:31:31 116 mm[Hg] [facility] Diastolic blood pressure 2022-11-11 20:31:31 77 mm[Hg] [facility] Heart rate 2022-11-11 20:31:31 84 /[facility] Respiratory rate 2022-11-11 20:31:31 12 /min [facility] Oxygen saturation in Arterial blood by Pulse oximetry 2022-11-11 20:31:31 90 /min [facility] Body temperature 2022-11-11 18:49:[address] [facility] Body height 2022-11-11 18:49:00 160 cm [facility] Body weight 2022-11-11 18:49:00 68.04 kg [facility] BMI 2022-11-11 18:49:00 26.57 kg/m2 [facility] Body temperature 2022-08-11 14:00:[address] [facility] Systolic blood pressure 2022-08-11 10:00:00 116 mm[Hg] [facility] Diastolic blood pressure 2022-08-11 10:00:00 71 mm[Hg] [facility] Heart rate 2022-08-11 10:00:00 70 /min [facility] Respiratory rate 2022-08-11 10:00:00 16 /min [facility] Body weight 2022-08-11 10:00:00 65.499 kg [facility] BMI 2022-08-11 10:00:00 25.58 kg/m2 [facility] Oxygen saturation in Arterial blood by Pulse oximetry 2022-08-11 10:00:00 100 /min [facility] Body height 2022-08-10 22:12:00 160 cm [facility] Systolic blood pressure 2022-04-06 16:00:00 125 mm[Hg] [facility] Diastolic blood pressure 2022-04-06 16:00:00 75 mm[Hg] [facility] Heart rate 2022-04-06 16:00:00 87 /min Unive [facility] Respiratory rate 2022-04-06 16:00:00 22 /min [facility] Oxygen saturation in Arterial blood by Pulse oximetry 2022-04-06 16:00:00 98 /min [facility] Body temperature 2022-04-06 14:41:[address] [facility] Body height 2022-04-06 14:41:00 160 cm [facility] Body weight 2022-04-06 14:41:00 63.504 kg [facility] BMI 2022-04-06 14:41:00 24.80 kg/m2 [facility] Systolic blood pressure 2022-01-20 02:27:00 121 mm[Hg] [facility] Diastolic blood pressure 2022-01-20 02:27:00 75 mm[Hg] [facility] Heart rate 2022-01-20 02:27:00 79 /min Unive [facility] Respiratory rate 2022-01-20 02:27:00 12 /min [facility] Oxygen saturation in Arterial blood by Pulse oximetry 2022-01-20 02:27:00 98 /min [facility] Body temperature 2022-01-19 22:19:[address] [facility] Body weight 2022-01-19 22:19:00 60.328 kg [facility] BMI 2022-01-19 22:19:00 23.56 kg/m2 [facility] Systolic blood pressure 2021-12-30 20:52:00 134 mm[Hg] [facility] Diastolic blood pressure 2021-12-30 20:52:00 76 mm[Hg] [facility] Heart rate 2021-12-30 20:52:00 67 /min Unive [facility] Body temperature 2021-12-30 20:26:[address] [facility] Oxygen saturation in Arterial blood by Pulse oximetry 2021-12-30 20:26:00 99 /min [facility] Respiratory rate 2021-12-30 16:21:00 18 /min [facility] Body weight 2021-12-30 08:27:00 60.464 kg [facility] BMI 2021-12-30 08:27:00 23.61 kg/m2 [facility] Body height 2021-12-29 01:29:00 160 cm [facility] Procedures Procedure Date / Time Performed Performing Clinician Source MAGNESIUM 2022-11-11 19:05:00 Hemant Klein [facility] BASIC METABOLIC PANEL (NA, K, CL, CO2, GLUCOSE, BUN, CREATININE, CA) 2022-11-11 19:05:[address] [facility] ETHANOL 2022-11-11 19:05:00 Hemant Klein [facility] CBC WITH DIFF 2022-11-11 19:05:00 Hemant Klein [facility] POCT GLUCOSE (AUTOMATED) 2022-08-11 13:36:[address] [facility] PHOSPHORUS 2022-08-11 10:35:00 Jessica Prado [facility] MAGNESIUM 2022-08-11 10:35:00 Eve [facility] AMMONIA, PLASMA 2022-08-11 10:35:00 Jessica Prado [facility] COMP. METABOLIC PANEL ([id number]) 2022-08-11 10:35:[address] [facility] CBC WITH DIFF 2022-08-11 10:35:00 Oswald Murphy [facility] POCT GLUCOSE (AUTOMATED) 2022-08-11 02:15:[address] [facility] POCT GLUCOSE (AUTOMATED) 2022-08-10 23:10:[address] [facility] POCT GLUCOSE (AUTOMATED) 2022-08-10 18:20:[address] [facility] POCT GLUCOSE (AUTOMATED) 2022-08-10 14:11:[address] [facility] POCT GLUCOSE (AUTOMATED) 2022-08-10 10:59:00 [...] [facility] URINALYSIS 2022-08-10 05:46:00 [facility] URINE DRUG (IMMUNOASSAY) - COMPREHENSIVE DRUG SCREEN W/O REFLEX 2022-08-10 05:45:[address] [facility] CREATINE KINASE 2022-08-10 05:16:00 [facility] 2022-08-10 05:16:00 Rayray Driscoll [facility] MAGNESIUM 2022-08-10 05:16:00 Rayray Driscoll [facility] TROPONIN I 2022-08-10 05:16:00 Rayray Driscoll [facility] COMP. METABOLIC PANEL ([id number]) 2022-08-10 05:16:[address] [facility] ETHANOL 2022-08-10 05:16:00 Rayray Driscoll [facility] CBC WITH DIFF 2022-08-10 05:16:00 Rayray Driscoll [facility] N-TERMINAL PRO-BNP 2022-08-10 05:16:[address] [facility] CRITICAL CARE 2022-08-10 04:52:00 Rayray Driscoll [facility] XR CHEST 1 VW 2022-04-06 14:51:50 [facility] 2022-04-06 14:42:00 [facility] TROPONIN I 2022-04-06 14:42:00 Diya Chowdhury [facility] COMP. METABOLIC PANEL ([id number]) 2022-04-06 14:42:[address] [facility] CBC WITH DIFF 2022-04-06 14:42:00 [facility] PROT[facility] TIME / INR 2022-04-06 14:42:00 [...] [facility] URINALYSIS 2022-01-19 23:10:00 Leticia Baldwin [facility] TROPONIN I 2022-01-19 23:00:00 Leticia Baldwin [facility] COMP. METABOLIC PANEL ([id number]) 2022-01-19 23:00:[address] [facility] LITHIUM 2022-01-19 23:00:00 Leticia Baldwin [facility] ETHANOL 2022-01-19 23:00:00 Leticia Baldwin [facility] CBC WITH DIFF 2022-01-19 23:00:[address] [facility] COVID-19 (ID NOW RAPID TESTING) 2022-01-19 23:00:[address] [facility] CT HEAD WO CONTRAST 2022-01-19 22:49:[address] [facility] XR CHEST 1 VW 2022-01-19 22:41:[address] [facility] POCT GLUCOSE (AUTOMATED) 2022-01-19 22:25:[address] [facility] POCT GLUCOSE (AUTOMATED) 2021-12-30 21:55:[address] [facility] POCT GLUCOSE (AUTOMATED) 2021-12-30 16:21:[address] [facility] POCT GLUCOSE (AUTOMATED) 2021-12-30 12:30:[address] [facility] HEPATIC FUNCTION PANEL ([id number]) (ALB,T.PRO,BILI T,BU/BC,ALT,AST,ALK PHOS) 2021-12-30 09:28:00 Maira Gaitan [...] [facility] TROPONIN I 2021-12-29 09:42:00 Jessica Prado [facility] TROPONIN I 2021-12-29 04:55:00 Eve [facility] CT HEAD WO CONTRAST 2021-12-28 21:18:[address] [facility] AMMONIA, PLASMA 2021-12-28 21:00:00 Pia Renteria [facility] COVID-19 (ID NOW RAPID TESTING) 2021-12-28 20:42:[address] [facility] LAB ONLY COVID INTERPRETATION 2021-12-28 20:42:[address] [facility] URINE DRUG (IMMUNOASSAY) - COMPREHENSIVE DRUG SCREEN W/O REFLEX 2021-12-28 20:42:[address] [facility] URINALYSIS 2021-12-28 20:40:00 Pia Renteria [facility] N-TERMINAL PRO-BNP 2021-12-28 20:40:[address] [facility] TROPONIN I 2021-12-28 20:40:00 Pia Renteria [facility] THYROID STIMULATING HORMONE 2021-12-28 20:40:[address] [facility] COMP. METABOLIC PANEL ([id number]) 2021-12-28 20:40:[address] [facility] LIPID PANEL ([id number])(TOTAL CHOLESTEROL, TRIGLYCERIDES, HDL) 2021-12-28 20:40:[address] [facility] ETHANOL 2021-12-28 20:40:00 Demetrius Langford [facility] CBC WITH DIFF 2021-12-28 20:40:00 Pia Renteria [facility] GLYCOSYLATED HEMOGLOBIN (A1C) 2021-12-28 20:40:[address] [facility] PROTHROMBIN TIME / INR 2021-12-28 20:40:[address] [facility] XR CHEST 1 VW 2021-12-28 20:16:00 Pia Renteria [facility] HB ECG ROUTINE & RHYTHM STRIP 2021-12-28 20:04:[address] [facility] Encounters Start Date/Time End Date/Time Encounter Type Admission Type Attending [facility] Care Facility Care Department Encounter ID Source 2021-09-17 16:45:00 Inpatient [facility] [id number] [facility] 2020-06-06 16:07:00 Inpatient [facility] [id number] [facility] 2020-06-06 06:20:00 Inpatient [facility] [id number] [facility] 2020-06-05 19:35:00 Inpatient [facility] [id number] [facility] 2020-05-23 19:53:00 Inpatient [facility] [id number] [facility] 2020-05-23 19:53:00 Inpatient [facility] [id number] [facility] 2022-11-11 13:50:00 2022-11-11 16:07:00 Emergency X HEMANT KLEIN [facility] ERT [id number] [facility] 2022-11-11 13:50:00 2022-11-11 16:07:00 Emergency Jessica, Hemant [facility] [id number] [facility] 2022-10-14 20:59:00 2022-10-14 20:59:00 Emergency [facility] [id number] 66 [facility] 2022-10-14 20:59:00 2022-10-14 20:59:00 Emergency Emergency Pan Pinto [facility] [id number] 66 [facility] 2022-08-09 22:59:00 2022-08-11 13:02:00 Outpatient X JESSICA PRADO [facility] [id number] [facility] 2022-08-09 22:59:00 2022-08-11 13:02:00 Emergency Rayray Driscoll Jelani Edionwe, [facility] 1.2.840.114 350.1.13.10 4.2.7.2.686 [id number] [facility] 2022-04-06 09:38:00 2022-04-06 11:42:00 Emergency X DIYA CHOWDHURY [facility] ERT [id number] [facility] 2022-04-06 09:38:00 2022-04-06 11:42:00 Emergency Toddjose l Diya [facility] 1.2.840.114 350.1.13.10 4.2.7.2.686 [id number] [facility] 2022-03-07 12:38:00 2022-03-07 12:38:00 Emergency [facility] [id number] 74 [facility] 2022-03-07 12:38:00 2022-03-07 12:38:00 Emergency Emergency Fidel Cuellar [facility] [id number] 74 [facility] 2022-01-19 17:18:00 2022-01-19 22:00:00 Emergency X NNEKA DIRK [facility] ERT [id number] [facility] 2022-01-19 17:18:00 2022-01-19 22:00:00 Emergency Leticia Baldwinveronica Amado [facility] 1.2.840.114 350.1.13.10 4.2.7.2.686 [id number] [id number] [facility] 2021-12-31 00:00:00 2021-12-31 00:00:00 Transition of Care Faye Portillo 1.2.840.114 350.1.13.10 4.2.7.2.686 [id number] [facility] 2021-12-28 14:53:00 2021-12-30 17:42:00 Inpatient X JESSICA PRADO [facility] MARGO [id number] [facility] 2021-12-28 14:53:00 2021-12-30 17:42:00 Hospital Encounter Pia Renteria Jelani [facility] 1.2.840.114 350.1.13.10 4.2.7.2.686 [id number] [facility] 2021-09-17 16:47:00 2021-09-17 16:47:00 Emergency [facility] [id number] [address] [place] [address] 2020-06-06 16:07:00 2020-06-06 16:07:00 Emergency [facility] [id number] [facility] Results Test Description Test Time Test Comments Results Resul t Comments Source ETHANOL 2022-11-11 19:45:56 ALCOHOL<10mg/dL0 11/11/2022 2:[facility] Kzstdidz92-981 Toxic>100 Depression of PERFECT BINDER SETTER>400 [facility] 19:41:47* Test Item Value Reference Range Interpretation Comme nts MAGNESIUM (test code = 6614627903) 1.8 mg/dL 1.7-2.4 Lab Interpretation (test cod e = 02719-6) Normal [facility] WITH [id number] 19:25:26* Test Item Value Reference Range Interpretation [...] 33.9 g/dL 31.2-35.0 RDW-SD (test code = 60896-0) 46.0 fL 38.5-51.6 RDW-CV (test code = 788-0) 13.5 % 12.1-15.4 PLT (test code = 777-3) 237 See_Comment [Automated messa ge] The system which generated this result transmitted reference range: 150 - 328 10*3/?L. The reference range was not used to interpret this result as normal/abnormal. MPV (test code = 75865-5) 8.9 fL 9.8-13.0 L NRBC/100 WBC (test code = 2454000650) 0.0 See_Comment [Automated me ssage] The system which generated this result transmitted reference range: 0.0 - 10.0 /100 WBCs. The reference range was not used to interpret this result as normal/abnormal. NRBC x10^3 (test code = 7057418315) See_Comment [Automated messa ge] The system which generated this result transmitted reference range: 10*3/?L. The reference range was not used to interpret this result as normal/abnormal. GRAN MAT (NEUT) % (test code = 770-8) 71.2 % IMM GRAN % (test code = 7358767549) 0.30 % LYMPH % (test code = 736-9) 18.2 % MONO % (test code = 5905-5) 8.4 % EOS % (test code = 713-8) 1.0 % BASO % (test code = 706-2) 0.9 % GRAN MAT x10^3(ANC) (test code = 1337501702) 4.86 10*3/uL 1.99-6.95 IMM GRAN x10^3 (test code = 8910990260) 0.00-0.06 LYMPH x10^3 (test code = 731-0) 1.24 10*3/uL 1.09-3.23 MONO x10^3 (test code = 742-7) 0.57 10*3/uL 0.36-1.02 EOS x10^3 (test code = 711-2) 0.07 10*3/uL 0.06-0.53 BASO x10^3 (test code = 704-7) 0.06 10*3/uL 0.01-0.09 Lab Interpretation (test code = 12906-7) [facility]normal [facility] Rflx Cult/Onpmj5999-05-63 22:20:00* Test Item Value Reference Range Interpretation Comme nts Color,Urine (test code = UCOL) Yellow Yellow Clarity,Urine (test code = UCLAR) Clear Clear Ph, Urine (test code = UPH) 7.0 5.0-9.0 N Specific Fiatt,Urine (test code = USG) 1.020 1.005-1.030 N [...] code = ULEU) Negative mg/dL Negative Drug Screen,Wzdsw1353-59-61 22:20:00* Test Item Value Reference Range Interpretation [...] UPROP) Negative Negative Complete Blood Count Auto Mcfj1047-05-70 21:21:00* Test Item Value Reference Range Interpretation [...] code = NRBCP) 0 % Comprehensive Metabolic Buete8543-24-06 21:21:00* Test Item Value Reference Range Interpretation [...] a race coefficient. Additional information canbe found at:08-03-3377_all_ egfr_summary_flyer 5.pdf ([email or web address]) [Automated message] The system [...] = ALP) 134 U/L 46-116 H Ethanol Cjamx5224-92-50 21:21:00* Test Item Value Reference Range Interpretation Comme nts Ethanol (test code = ETOH) < 3 mg/dL The pharmacologi yudy response to blood alcohol levels mayvary from individual to individual. The fatal concentrationhas been reported to be >400mg/dL. POCT GLUCOSE (AUTOMATED)2022-08-11 13:40:35* Test Item Value Reference [facility] (test code = 2825116911) 121 mg/dL 70-110 H Lab Interpretation (test cod e = 84521-8) Abnormal [facility] GLUCOSE (AUTOMATED)2022-08-11 02:18:58* Test Item Value Reference Range Interpretation [facility] PO[facility]U (test code = 0209852076) 183 mg/dL 70-110 H Lab Interpretation (test cod e = 91789-2) Abnormal [facility] GLUCOSE (AUTOMATED)2022-08-10 23:16:11* Test Item Value Reference Range Interpretation Comme nts POCT GLU (test code = 7221281290) 176 mg/dL 70-110 H Lab Interpretation (test cod e = 90411-8) Abnormal [facility] GLUCOSE (AUTOMATED)2022-08-10 18:22:51* Test Item Value Reference Range Interpretation Comme nts POCT GLU (test code = 5922680336) 165 mg/dL 70-110 H Lab Interpretation (test cod e = 72768-8) Abnormal [facility] GLUCOSE (AUTOMATED)2022-08-10 14:18:05* Test Item Value Reference Range Interpretation Comme nts POCT GLU (test code = 1060674617) 138 mg/dL 70-110 H Lab Interpretation (test cod e = 47242-4) Abnormal [facility] GLUCOSE (AUTOMATED)2022-08-10 11:01:21* Test Item Value Reference Range Interpretation Comme nts POCT GLU (test code = 3610254725) 143 mg/dL 70-110 H Lab Interpretation (test cod e = 22696-4) [facility]normal [facility] K6268-29-70 06:51:18* Test Item Value Reference Range Interpretation Comme nts TROPONIN I (test code = 6560006732) 0.008 ng/mL <=0.034 JUAN ALBERTO (test code [...] of biotin. Lab Interpretation (test code = 17337-4) Normal [facility] CenterN-[facility]MINAL HKC-PDG8988-00-19 06:47:37* Test Item Value Reference Range Interpretation Comme nts NT-proBNP (test code = 0180067028) 37 pg/mL <=125 JUAN ALBERTO (test code = JUAN ALBERTO) Biotin has been reported to cause a negative bias, interpret results relative to patient's use of biotin. Lab Interpretation (test code = 10071-0) Normal [facility] CenterETH[facility]OL2023-02-19 06:25:52 ALCOHOL<10mg/dL08/10/2022 12:25 AM [facility]<10 Hyuotsho52-256 Toxic>100 Depression of PERFECT BINDER SETTER>400 Fatalities ReportedSt. [facility] CenterCOMP. METABOLIC PANEL (23581)2022-08-10 06:19:15* Test Item Value Reference Range Interpretation Comme nts NA (test code = 4136285199) 135 mmol/L 135-145 K (test code = 8542374878) 4.3 mmol/L 3.5-5.0 CL (test code = 6456321523) 98 mmol/L 98-108 CO2 TOTAL (test code = 9308098752) 30 mmol/L 23-31 AGAP (test code = 6473970511) 7 2-16 BUN (test code = 3257847233) 11 mg/dL 7-23 GLUCOSE (test code = 9050592372) 153 mg/dL 70-110 H CREATININE (test code = 7990404876) 0.77 mg/dL 0.60-1.25 TOTAL BILI (test code = 6370283051) 0.9 mg/dL 0.1-1.1 CALCIUM (test code = 3342792909) 10.0 mg/dL 8.6-10.6 T PROTEIN (test code = 4419196831) 7.7 g/dL 6.3-8.2 ALBUMIN (test code = 5686741976) 4.6 g/dL 3.5-5.0 ALK PHOS (test code = 5308802706) 92 U/L 34-122 ALTv (test code = 1742-6) 35 U/L 5-50 AST(SGOT) (test code = 6139040906) 42 U/L 13-40 H eGFR (test code = 2802368471) 106.1 mL/min/1.73m2 JUAN ALBERTO (test code = [...] imaging tests). Lab Interpretation (test code = 07435-1) Abnormal [facility] CenterMAG[facility]UM2023-02-19 06:19:15* Test Item Value Reference Range Interpretation Comme nts MAGNESIUM (test code = 4824692248) 2.2 mg/dL 1.7-2.4 Lab Interpretation (test cod e = 78587-6) Normal [facility] CenterLIPASE2023-02-19 06:18:55* Test Item Value Reference Range Interpretation Comme nts LIPASE (test code = 4689406975) 18 U/L 0-220 Lab Interpretation (test cod e = 99515-6) Normal [facility] CenterCREATINE ZPNZBK2046-87-84 06:18:55* Test Item Value Reference Range Interpretation Comme nts CK (test code = 0305704801) 174 U/L 33-194 Lab Interpretation (test cod e = 90062-2) Normal [facility] WITH XWRY9480-74-27 06:02:35* Test Item Value Reference Range Interpretation Comme nts WBC (test code = 6690-2) 7.50 See_Comment [Automated messa ge] The system which generated this result transmitted reference range: 4.20 - 10.70 10*3/?L. The reference range was not used to interpret this result as normal/abnormal. RBC (test code = 789-8) 4.80 See_Comment [Automated messa ge] The system which [...] 32.4 g/dL 31.2-35.0 RDW-SD (test code = 72764-7) 50.2 fL 38.5-51.6 RDW-CV (test code = 788-0) 14.3 % 12.1-15.4 PLT (test code = 777-3) 241 See_Comment [Automated messa ge] The system which generated this result transmitted reference range: 150 - 328 10*3/?L. The reference range was not used to interpret this result as normal/abnormal. MPV (test code = 05276-4) 8.6 fL 9.8-13.0 L NRBC/100 WBC (test code = 1618239209) 0.0 See_Comment [Automated [employer] ssage] The system which generated this result transmitted reference range: 0.0 - 10.0 /100 WBCs. The reference range was not used to interpret this result as normal/abnormal. NRBC x10^3 (test code = 1618515036) See_Comment [Automated messa ge] The system which generated this result transmitted reference range: 10*3/?L. The reference range was not used to interpret this result as normal/abnormal. GRAN MAT (NEUT) % (test code = 770-8) 63.9 % IMM GRAN % (test code = 7708134317) 0.50 % LYMPH % (test code = 736-9) 17.6 % MONO % (test code = 5905-5) 16.5 % EOS % (test code = 713-8) 0.7 % BASO % (test code = 706-2) 0.8 % GRAN MAT x10^3(ANC) (test code = 9110391455) 4.79 10*3/uL 1.99-6.95 IMM GRAN x10^3 (test code = 5575400207) 0.04 10*3/uL 0.00-0.06 LYMPH x10^3 (test code = 731-0) 1.32 10*3/uL 1.09-3.23 MONO x10^3 (test code = 742-7) 1.24 10*3/uL 0.36-1.02 H EOS x10^3 (test code = 711-2) 0.05 10*3/uL 0.06-0.53 L BASO x10^3 (test code = 704-7) 0.06 10*3/uL 0.01-0.09 Lab Interpretation (test code = 58670-3) Abnormal [facility] [id number] 15:15:32* Test Item Value Reference Range Interpretation Comments TROPONIN I (test code = 4882469155) 0.007 ng/mL See_Comment [Automated message] The system [...] of biotin. Lab Interpretation (test code = 09178-6) Normal [facility] CenteraPTT2022-10-16 15:08:29* Test Item Value Reference Range Interpretation [facility] (test code = 3173-2) See_Comment [Automated message] The system which generated this result transmitted reference range: 23 - 38 Seconds. The reference range was not used to interpret this result as normal/abnormal. JUAN ALBERTO (test code = JUAN ALBERTO) The [facility] patient population mean normal value for aPTT is 30 seconds. Lab Interpretation (test code = 23481-4) Normal [facility] CenterPROTHROMBIN TIME / [id number] 15:06:28* Test Item Value Reference Range Interpretation Com[facility] PROTIME PATIENT (test code = 5964-2) See_Comment [Automated messa ge] The system which generated this result transmitted reference range: 12.0 - 14.7 Seconds. The reference range was not used to interpret this result as normal/abnormal. INR (test code = 6301-6) Normal INR <1.1; Warfarin Therapeutic range 2.0 to 3.0 or 2.5 to 3.5, depending upon the indications. Lab Interpretation (test code = 80074-8) Normal [facility] CenterCOMP. METABOLIC PANEL (66069)2022-04-06 15:03:31* Test Item Value Reference Range Interpretation [facility] NA (test code = 7689165428) 136 mmol/L 135-145 K (test code = 2596472470) 5.0 mmol/L 3.5-5 CL (test code = 6747276441) 104 mmol/L 98-108 CO2 TOTAL (test code = 5826719722) 21 mmol/L 23-31 L AGAP (test code = 5538854950) 2-16 BUN (test code = 0464481845) 11 mg/dL 7-23 GLUCOSE (test code = 3614106952) 162 mg/dL 70-110 H CREATININE (test code = 6471392716) 0.52 mg/dL 0.6-1.25 L TOTAL BILI (test code = 3497619373) 1.0 mg/dL 0.1-1.1 CALCIUM (test code = 5299862517) 9.3 mg/dL 8.6-10.6 T PROTEIN (test code = 1501736619) 7.4 g/dL 6.3-8.2 ALBUMIN (test code = 7117148482) 4.4 g/dL 3.5-5 ALK PHOS (test code = 6068819887) 134 U/L 34-122 H ALTv (test code = 1742-6) 17 U/L 5-50 AST(SGOT) (test code = 1676692916) 38 U/L 13-40 eGFR (test code = 5168207297) mL/min/1.73m2 JUAN ALBERTO (test code = JUAN [...] imaging tests). Lab Interpretation (test code = 57827-4) [facility] BranchLIPASE, HOMCK6169-21-53 15:03:31* Test Item Value Reference Range Interpretation Comme nts LIPASE (test code = 4480922420) 29 U/L 0-220 Lab Interpretation (test cod e = 99197-9) Normal [facility] WITH AWDX9099-36-84 14:51:49* Test Item Value Reference Range Interpretation Comme nts WBC (test code = 6690-2) See_Comment [Automated messa ge] The system which generated this result transmitted reference range: 4.20 - 10.70 10*3/?L. The reference range was not used to interpret this result as normal/abnormal. RBC (test code = 789-8) See_Comment [Automated messa ge] The system which [...] 34.0 g/dL 31.2-35 RDW-SD (test code = 03471-4) 45.9 fL 38.5-51.6 RDW-CV (test code = 788-0) 13.3 % 12.1-15.4 PLT (test code = 777-3) See_Comment [Automated messa ge] The system which generated this result transmitted reference range: 150 - 328 10*3/?L. The reference range was not used to interpret this result as normal/abnormal. MPV (test code = 05773-3) 8.4 fL 9.8-13 L NRBC/100 WBC (test code = 0588482230) See_Comment [Automated [employer] ssage] The system which generated this result transmitted reference range: 0.0 - 10.0 /100 WBCs. The reference range was not used to interpret this result as normal/abnormal. NRBC x10^3 (test code = 1965745458) See_Comment [Automated messa ge] The system which generated this result transmitted reference range: 10*3/?L. The reference range was not used to interpret this result as normal/abnormal. GRAN MAT (NEUT) % (test code = 770-8) 63.0 % IMM GRAN % (test code = 0675136012) 0.50 % LYMPH % (test code = 736-9) 25.2 % MONO % (test code = 5905-5) 9.8 % EOS % (test code = 713-8) 0.3 % BASO % (test code = 706-2) 1.2 % GRAN MAT x10^3(ANC) (test code = 6336020295) 3.73 10*3/uL 1.99-6.95 IMM GRAN x10^3 (test code = 5885967560) 0.03 10*3/uL 0-0.06 LYMPH x10^3 (test code = 731-0) 1.49 10*3/uL 1.09-3.23 MONO x10^3 (test code = 742-7) 0.58 10*3/uL 0.36-1.02 EOS x10^3 (test code = 711-2) 0.06-0.53 L BASO x10^3 (test code = 704-7) 0.07 10*3/uL 0.01-0.09 Lab Interpretation (test code = 89555-7) Abnormal [facility], Urinalysis Rflx Cult/Aacfy5577-13-41 13:53:00* Test Item Value Reference Range Interpretation Comme nts Color,Urine (test code = UCOL) Yellow Yellow Clarity,Urine (test code = UCLAR) Cloudy Clear A Ph, Urine (test code = UPH) 7.5 5.0-9.0 N Specific Fiatt,Urine (test code = USG) 1.025 1.005-1.030 N [...] = ULEU) Negative mg/dL Negative UF REFLEXDrug Screen,Fvhmu1058-05-63 13:53:00* Test Item Value Reference Range Interpretation [...] UPROP) Negative Negative Complete Blood Count Auto Nvkw4302-59-44 12:58:00* Test Item Value Reference Range Interpretation [...] = NRBCP) 0 % Coronavirus PCR, COVID19 Pgprc1603-55-85 12:58:00* Test Item Value Reference Range Interpretation Comme nts Coronavirus PCR, COVID19 Rapid (test code = SARSCOV2) Coronavirus PCR, COVID19 Rapid (test code = JRGAWGG60.1) Reference Range: Negative SARS-CoV-2 PCR Result: (test code = SARS-CoV-2 PCR Result:) Negative by RT-PCR COVID-19 Status: AsymptomaticComprehensive Metabolic Gytaw9366-91-14 12:58:00* Test Item Value Reference Range Interpretation [...] = ALP) 144 U/L 46-116 H Ethanol Agfkn0788-62-88 12:58:00* Test Item Value Reference Range Interpretation Comme nts Ethanol (test code = ETOH) < 3 mg/dL The pharmacologi yudy response to blood alcohol levels mayvary from individual to individual. The fatal concentrationhas been reported to be >400mg/dL. DKFJTCS8077-32-64 01:47:56* Test Item Value Reference Range Interpretation Comme nts [place] (test code = 9565873107) 0.7 mmol/L 0.6-1.2 JUAN ALBERTO (test code = JUAN ALBERTO) Toxic Range: ? Greater than 1.2 mmol/L Lab Interpretation (test code = 31957-9) Normal [facility]TR[facility] S3076-09-88 00:26:53* Test Item Value Reference Range Interpretation Comments TROPONIN I (test code = 9772396668) 0.002 ng/mL See_Comment [Automated message] The system [...] of biotin. Lab Interpretation (test code = 60875-9) Normal [facility] CenterETH[facility]OL2022-08-01 00:18:52 ALCOHOL<10mg/dL01/19/2022 7:18 PM [facility] Gjwdawiw76-531 Toxic>100 Depression of PERFECT BINDER SETTER>400 Fatalities ReportedSt. [facility]'s [facility] CenterCOMP. METABOLIC PANEL (63001)2022-01-20 00:16:16* Test Item Value Reference Range Interpretation Comme nts NA (test code = 9266746448) 137 mmol/L 135-145 K (test code = 1687271016) 4.5 mmol/L 3.5-5 CL (test code = 0087949007) 103 mmol/L 98-108 CO2 TOTAL (test code = 9941617945) 26 mmol/L 23-31 AGAP (test code = 9047464852) 2-16 BUN (test code = 6819775005) 10 mg/dL 7-23 GLUCOSE (test code = 3873661086) 121 mg/dL 70-110 H CREATININE (test code = 8545951948) 0.65 mg/dL 0.6-1.25 TOTAL BILI (test code = 1072055972) 0.8 mg/dL 0.1-1.1 CALCIUM (test code = 4080609402) 11.4 mg/dL 8.6-10.6 H T PROTEIN (test code = 0647539346) 7.2 g/dL 6.3-8.2 ALBUMIN (test code = 3225645667) 4.6 g/dL 3.5-5 ALK PHOS (test code = 7286404030) 112 U/L 34-122 ALTv (test code = 1742-6) 19 U/L 5-50 AST(SGOT) (test code = 7639653254) 26 U/L 13-40 eGFR (test code = 6057246347) mL/min/1.73m2 JUAN ALBERTO (test code = JUAN [...] imaging tests). Lab Interpretation (test code = 06866-4) Abnormal [facility] WITH TGMY9577-06-36 23:43:54* Test Item Value Reference Range Interpretation Comme nts WBC (test code = 6690-2) See_Comment [Automated messa ge] The system which generated this result transmitted reference range: 4.20 - 10.70 10*3/?L. The reference range was not used to interpret this result as normal/abnormal. RBC (test code = 789-8) See_Comment [Automated [employer]] The system which generated this result [...] 34.4 g/dL 31.2-35 RDW-SD (test code = 23470-2) 44.0 fL 38.5-51.6 RDW-CV (test code = 788-0) 12.6 % 12.1-15.4 PLT (test code = 777-3) See_Comment [Automated [employer]] The system which generated this result transmitted reference range: 150 - 328 10*3/?L. The reference range was not used to interpret this result as normal/abnormal. MPV (test code = 03113-7) 9.1 fL 9.8-13 L NRBC/100 WBC (test code = 6815261047) See_Comment [Automated [employer] ssage] The system which generated this result transmitted reference range: 0.0 - 10.0 /100 WBCs. The reference range was not used to interpret this result as normal/abnormal. NRBC x10^3 (test code = 1479895011) See_Comment [Automated [employer]] The system which generated this result transmitted reference range: 10*3/?L. The reference range was not used to interpret this result as normal/abnormal. GRAN MAT (NEUT) % (test code = 770-8) 69.8 % IMM GRAN % (test code = 3227158669) 0.40 % LYMPH % (test code = 736-9) 18.0 % MONO % (test code = 5905-5) 10.9 % EOS % (test code = 713-8) 0.1 % BASO % (test code = 706-2) 0.8 % GRAN MAT x10^3(ANC) (test code = 6460047159) 5.58 10*3/uL 1.99-6.95 IMM GRAN x10^3 (test code = 6104214697) 0.03 10*3/uL 0-0.06 LYMPH x10^3 (test code = 731-0) 1.44 10*3/uL 1.09-3.23 MONO x10^3 (test code = 742-7) 0.87 10*3/uL 0.36-1.02 EOS x10^3 (test code = 711-2) 0.06-0.53 L BASO x10^3 (test code = 704-7) 0.06 10*3/uL 0.01-0.09 Lab Interpretation (test code = 79511-7) Abnormal [facility] GLUCOSE (AUTOMATED)2022-01-19 22:27:41* Test Item Value Reference Range Interpretation Comme nts POCT GLU (test code = 9524850179) 123 mg/dL 70-110 H Lab Interpretation (test cod e = 14388-9) Abnormal [facility] GLUCOSE (AUTOMATED)2021-12-30 22:08:16* Test Item Value Reference Range Interpretation Comme nts POCT GLU (test code = 3637385136) 167 mg/dL 70-110 H Lab Interpretation (test cod e = 00542-9) Abnormal [facility] GLUCOSE (AUTOMATED)2021-12-30 16:50:40* Test Item Value Reference Range Interpretation Comme nts POCT GLU (test code = 5466873661) 154 mg/dL 70-110 H Lab Interpretation (test cod e = 18354-1) Abnormal [facility] GLUCOSE (AUTOMATED)2021-12-30 12:38:43* Test Item Value Reference Range Interpretation Comme nts POCT GLU (test code = 0231683789) 164 mg/dL 70-110 H Lab Interpretation (test cod e = 96822-3) Abnormal [facility] GLUCOSE (AUTOMATED)2021-12-30 02:14:58* Test Item Value Reference Range Interpretation Comme nts POCT GLU (test code = 0944811063) 220 mg/dL 70-110 H Lab Interpretation (test cod e = 55901-5) Abnormal [facility] GLUCOSE (AUTOMATED)2021-12-29 21:50:02* Test Item Value Reference Range Interpretation Comme nts POCT GLU (test code = 6415363628) 191 mg/dL 70-110 H Lab Interpretation (test cod e = 44259-1) Abnormal [facility] GLUCOSE (AUTOMATED)2021-12-29 20:15:01* Test Item Value Reference Range Interpretation Comme nts POCT GLU (test code = 0525912843) 163 mg/dL 70-110 H Lab Interpretation (test cod e = 85293-9) [facility]normal [facility] Center[facility]an[facility]hor[facility] (TTE)2021-12-29 19:12:22* Test Item Value Reference Range Interpretation Comme nts Height (test code = 9981839542) in Weight (test code = 3251514808) lbs Systolic BP (test code = 7632184099) mmHg Diastolic BP (test code = 2118422422) mmHg Heart Rate (test code = 2447729460) bpm BSA (test code = 9400154389) 1.62 m2 Ao root annulus (test code = 3246431675) 2.45 cm Ao root diam (test code = 8790776516) 2.45 cm Aortic root (test code = 4536934763) 2.45 cm ACS (test code = 6964604187) 1.66 cm LA size (test code = 8841741876) 3.2 cm LVOT diameter (test code = 3280000293) 1.95 cm LVIDD (test code = 5858350456) 3.60 cm IVS (test code = 7410053437) 0.94 cm Interventricular Septum Diastolic Thickness by 2D (test code = 3286357) 0.94 cm LVPWD (test code = 3115654074) 0.80 cm PW (test code = 4935358947) 0.80 cm 0.6-1.1 EF(Teich) (test code = 1029774972) 52.80 % LVIDS (test code = 1724279986) 2.60 cm FS (test code = 9668860982) 27 % EF - 2D (test code = 96785215) 52.80 % LAV(MOD-sp4) (test code = 9837373724) 16.80 mL MV Peak E Jovany (test code = 4475122318) 46.1 cm/s E wave decelartion time (test code = 8177519251) 0.31 s MV Peak A Jovany (test code = 6873198788) 58.1 cm/s E/A ratio (test code = 2989666089) ratio MV E/e' septal (test code = 0224301676) 5.7 cm/s Tapse (test code = 6209919671) 1.60 cm LVOT stroke volume (test code = 9899517337) 52.10 cm3 LVOT peak jovany (test code = 1940111499) 110.6 cm/s LVOT mn grad (test code = 7904289877) mmHg AV LVOT peak gradient (test code = 2164363963) mmHg LVOT peak VTI (test code = 9335276954) 17.4 cm LV V1 mean (test code = 8735673826) 66.10 cm/s Aortic valve mean velocity (test code = 3719399771) 73.0 cm/s Ao peak jovany (test code = 0248945868) 124.6 cm/s Ao VTI (test code = 2252193323) 18.6 cm AV area by cont VTI (test code = 0493262707) 2.8 cm2 AV area peak jovany (test code = 7148471260) 2.7 cm2 Ao max PG (test code = 5014824200) 6.20 mm[Hg] AV peak gradient (test code = 1653596444) mmHg AV valve area (test code = 2735933899) 2.80 cm2 AV mean gradient (test code = 6929574041) mmHg Radiology Study observation (narrative) (test code = 08651-9) JUAN ALBERTO (test code = JUAN ALBERTO) [...] of Lumason ultrasound enhancing agent [facility]. [facility] (AUTOMATED)2021-12-29 12:50:31* Test Item Value Reference Range Interpretation Comme nts POCT GLU (test code = 9261254752) 141 mg/dL 70-110 H Lab Interpretation (test cod e = 51046-0) Abnormal [facility] CenterTroponin [id number] 10:38:31* Test Item Value Reference Range Interpretation Comments TROPONIN I (test code = 3961614910) 0.003 ng/mL See_Comment [Automated message] The system [...] of biotin. Lab Interpretation (test code = 60273-0) Normal [facility] CenterLIPID PANEL (99691)(TOTAL CHOLESTEROL, TRIGLYCERIDES, HDL)2021-12-29 05:56:47* Test Item Value Reference Range Interpretation Comme nts CHOL (test code = 5901982283) 168 mg/dL 120-200 HDL (test code = 5950658423) 102 mg/dL See_Comment [Automated [email or web address]] The system which generated this result transmitted reference range: >=40. The reference range was not used to interpret this result as normal/abnormal. HDLC RATIO (test code = 8112343919) See_Comment [Automated [email or web address]] The system which generated this result transmitted reference range: <=5.0. The reference range was not used to interpret this result as normal/abnormal. TRIG (test code = 8905053326) 55 mg/dL 30-170 LDL CHOL (test code = 65409-3) 55 mg/dL See_Comment [Automated [email or web address]] The system which generated this result transmitted reference range: <=160. The reference range was not used to interpret this result as normal/abnormal. VLDL (test code = 4378234431) 11 mg/dL 5-60 Lab Interpretation (test code = 95094-0) Normal [facility] CenterThyroid Stimulating Hormone (TSH)2021-12-29 05:40:29* Test Item Value Reference Range Interpretation Comme nts TSH (test code = 7533070012) See_Comment Biotin has been reported to cause a negative bias, interpret results relative to patient's use of biotin. [Automated message] The system which generated this result transmitted reference range: 0.45 - 4.70 mIU/L. The reference range was not used to interpret this result as normal/abnormal. Lab Interpretation (test code = 79523-3) Normal [facility] CenterTroponin [id number] 05:34:29* Test Item Value Reference Range Interpretation Comments TROPONIN I (test code = 8476237845) 0.006 ng/mL See_Comment [Automated message] The system [...] of biotin. Lab Interpretation (test code = 57552-5) Normal [facility] CenterETHANOL2022-07-10 04:43:01 ALCOHOL<10mg/dL12/28/2021 11:43 PM [facility] Greater than or equal to [...] > 6.5% Lab Interpretation (test code = 06659-3) Abnormal [facility] CenterTROPONIN [id number] 21:26:50* Test Item Value Reference Range Interpretation Comments TROPONIN I (test code = 1413728944) 0.002 ng/mL See_Comment [Automated message] The system [...] of biotin. Lab Interpretation (test code = 12825-9) Normal [facility] CenterN-TERMINAL [id number] 21:23:29* Test Item Value Reference Range Interpretation Comme nts NT-proBNP (test code = 6640454066) 41 pg/mL See_Comment [Automated message] The system which generated this result transmitted reference range: <=125. The reference range was not used to interpret this result as normal/abnormal. JUAN ALBERTO (test code = JUAN ALBERTO) Biotin has been reported to cause a negative bias, interpret results relative to patient's use of biotin. Lab Interpretation (test code = 75326-0) Normal [facility] CenterAMMONIA, [id number] 21:20:38* Test Item Value Reference Range Interpretation Comme nts AMMONIA (test code = 5142001724) 9-33 L Slight hemolysis Lab Interpretation (test code = 38188-6) Abnormal [facility] CenterCOMP. METABOLIC PANEL (87652)2021-12-28 21:08:48* Test Item Value Reference Range Interpretation Comme nts NA (test code = 3917472618) 137 mmol/L 135-145 K (test code = 0675059215) 4.5 mmol/L 3.5-5 CL (test code = 8080957420) 97 mmol/L 98-108 L CO2 TOTAL (test code = 5020989828) 29 mmol/L 23-31 AGAP (test code = 8813032283) 2-16 BUN (test code = 5706991764) 10 mg/dL 7-23 GLUCOSE (test code = 1553652396) 188 mg/dL 70-110 H CREATININE (test code = 9723277738) 0.58 mg/dL 0.6-1.25 L TOTAL BILI (test code = 0814756445) 0.8 mg/dL 0.1-1.1 CALCIUM (test code = 0356659223) 10.5 mg/dL 8.6-10.6 T PROTEIN (test code = 3448238427) 7.6 g/dL 6.3-8.2 ALBUMIN (test code = 9652358203) 4.5 g/dL 3.5-5 ALK PHOS (test code = 3727867387) 107 U/L 34-122 ALTv (test code = 1742-6) 66 U/L 5-50 H AST(SGOT) (test code = 1821369049) 96 U/L 13-40 H eGFR (test code = 2268550986) mL/min/1.73m2 JUAN ALBERTO (test code = JUAN [...] imaging tests). Lab Interpretation (test code = 44343-6) Abnormal [facility] CenterPROTHROMBIN TIME / [id number] 21:01:25* Test Item Value Reference Range Interpretation Comme jaelyn LUCIO PATIENT (test code = 5964-2) See_Comment [Automated [employer]] The system which generated this result transmitted reference range: 12.0 - 14.7 Seconds. The reference range was not used to interpret this result as normal/abnormal. INR (test code = 6301-6) Normal INR <1.1; Warfarin Therapeutic range 2.0 to 3.0 or 2.5 to 3.5, depending upon the indications. Lab Interpretation (test code = 05233-3) Normal [facility] WITH [id number] 20:54:03* Test Item Value Reference Range Interpretation Comme nts WBC (test code = 6690-2) See_Comment [Automated messa ge] The system which generated this result transmitted reference range: 4.20 - 10.70 10*3/?L. The reference range was not used to interpret this result as normal/abnormal. RBC (test code = 789-8) See_Comment [Automated messa ge] The system which [...] 34.2 g/dL 31.2-35 RDW-SD (test code = 94979-0) 47.8 fL 38.5-51.6 RDW-CV (test code = 788-0) 13.3 % 12.1-15.4 PLT (test code = 777-3) See_Comment [Automated messa ge] The system which generated this result transmitted reference range: 150 - 328 10*3/?L. The reference range was not used to interpret this result as normal/abnormal. MPV (test code = 50158-2) 8.6 fL 9.8-13 L NRBC/100 WBC (test code = 2959729181) See_Comment [Automated me ssage] The system which generated this result transmitted reference range: 0.0 - 10.0 /100 WBCs. The reference range was not used to interpret this result as normal/abnormal. NRBC x10^3 (test code = 8546274551) See_Comment [Automated messa ge] The system which generated this result transmitted reference range: 10*3/?L. The reference range was not used to interpret this result as normal/abnormal. GRAN MAT (NEUT) % (test code = 770-8) 64.1 % IMM GRAN % (test code = 0170295868) 0.40 % LYMPH % (test code = 736-9) 16.6 % MONO % (test code = 5905-5) 17.2 % EOS % (test code = 713-8) 0.2 % BASO % (test code = 706-2) 1.5 % GRAN MAT x10^3(ANC) (test code = 9542122158) 3.47 10*3/uL 1.99-6.95 IMM GRAN x10^3 (test code = 4443005857) 0-0.06 LYMPH x10^3 (test code = 731-0) 0.90 10*3/uL 1.09-3.23 L MONO x10^3 (test code = 742-7) 0.93 10*3/uL 0.36-1.02 EOS x10^3 (test code = 711-2) 0.06-0.53 L BASO x10^3 (test code = 704-7) 0.08 10*3/uL 0.01-0.09 Lab Interpretation (test code = 38934-5) Abnormal [facility] CenterEthanol [id number] 21:08:00* Test Item Value Reference Range Interpretation Comme nts Ethanol (test code = ETOH) < 3 mg/dL The pharmacologi yudy response to blood alcohol levels mayvary from individual to individual. The fatal concentrationhas been reported to be >400mg/dL. Complete Blood Count Auto [id number] 17:33:00* Test Item Value Reference Range Interpretation [...] = NRBCP) 0 % UA, Urinalysis Rflx Cult/[id number] 17:33:00* Test Item Value Reference Range Interpretation Comme nts Color,Urine (test code = UCOL) Dark Yellow Yellow A Clarity,Urine (test code = UCLAR) Clear Clear Ph, Urine (test code = UPH) 6.5 5.0-9.0 N Specific Fiatt,Urine (test code = USG) 1.015 1.005-1.030 N [...] = ULEU) Trace mg/dL Negative A Urine [id number] 17:33:00* Test Item Value Reference Range Interpretation Comme nts RBC,Urine (test code = URBCUF) None Seen /HPF 0-2 WBC,Urine (test code = UWBCUF) 0-5 /HPF 0-5 Epithelial Cell,Urine (test code = UECUF) 0-5 /HPF 0-5 Casts,Urine (test code = UCASTUF) None Seen /LPF None Seen Bacteria,Urine (test code = UBACTUF) None Seen /hpf None Seen Drug Screen,[id number] 17:33:00* Test Item Value Reference Range Interpretation [...] code = UPROP) Negative Negative Comprehensive Metabolic [id number] 17:33:00* Test Item Value Reference Range Interpretation [...] 101 U/L 46-116 N Sars-CoV-2/FLU A/B RSV [id number] 17:31:00* Test Item Value Reference Range Interpretation [...] SARS-CoV-2 PCR Result:) Negative by RT-PCR Drug Screen,[id number] 17:20:00* Test Item Value Reference Range Interpretation [...] UPROP) Negative Negative Complete Blood Count Auto [id number] 17:14:00* Test Item Value Reference Range Interpretation [...] code = NRBCP) 0 % Comprehensive Metabolic [id number] 17:14:00* Test Item Value Reference Range Interpretation [...] = ALP) 207 U/L 46-116 H Ethanol [id number] 17:14:00* Test Item Value Reference Range Interpretation Comme nts Ethanol (test code = ETOH) 192 mg/dL Complete Blood Count Auto [id number] 20:20:00* Test Item Value Reference Range Interpretation [...] code = NRBCP) 0 % Comprehensive Metabolic [id number] 20:20:00* Test Item Value Reference Range Interpretation [...] = ALP) 189 U/L 46-116 H Ethanol [id number] 20:20:00* Test Item Value Reference Range Interpretation Comme nts Ethanol (test code = ETOH) 10 mg/dL Sars-CoV-2/FLU A/B RSV [id number] 20:20:00* Test Item Value Reference Range Interpretation [...] Negative by Nucleic Acid Amplification UA, Urinalysis [id number] 20:20:00* Test Item Value Reference Range Interpretation Comme nts Color,Urine (test code = UCOL) Yellow Y Clarity,Urine (test code = UCLAR) Clear Clear PH,Urine (test code = UPH.XX) 7.0 5.5-8.5 Specific Fiatt,Urine (test code = USG) 1.020 1.005-1.030 N [...] code = ULEU) Negative cells/uL Negative Drug Screen,[id number] 20:20:00* Test Item Value Reference Range Interpretation [...] code = UTHCS) Negative RESULT TO FO LLOW CT head/brain wo [facility] [address] [place] [address] Patient Name: Walt Velazquez Medical Record#: [id number] Address: Homeless City/State/Zip: [place] [address]: Vinnie Navarro MD Phone: Insurance: Self Pay /Age/Sex: 1970/50/M Admit/Reg Date: 09/17/[address]: Vinnie Navarro MD Location: [facility]/ PCP: PcpMd KERWIN Jimenez Date of Service: 09/17/21 Order (s): CT head/brain wo con CPT Code: 88837 Report Number: [id number] Reason for Exam: Altered mental status Location [...] widening of the ventricular system. Og-white differentiation ismaintained. The basal cisterns are preserved. Visualized orbits, paranasal sinus and mastoid air spaces appear within normal limits. Calvarium is intact. There is a rounded subcutaneous lesion at themidline frontal region, measuring 1 cm. Visual inspection. IMPRESSION: 1. No acute intracranial findings. 2. Incidental note of rounded subcutaneous lesion at the midline frontal region (forehead), measuring 1 cm. Visual inspection. Electronically signed by: Karen Jay MD 09/17/2021 6:42 PM CDT Dictated By: Karen Sanders MD 09/17/211824 Signed By: Karen Sanders MD 09/17/211824 TD/TT: 09/17/211824 Tech: ES135 cc: JOSEE; RENETTA Navarro MD; Lai-Md KERWIN Stiles"
--- NOTE | 2023-09-25 14:37 | ER ---
Nurse's Notes [facility] Name: Walt Velazquez Age: 52 yrs Sex: Male : 1970 Arrival Date: 09/25/2023 Time: 13:59 Bed IW1 Private MD: Diagnosis: Chest pain, unspecified Presentation: 09/24 14:37 Chief complaint: Patient states: CP and ETOH use, chronic. Coronavirus screen: Client ll1 denies travel out of the [place] in the last 14 days. At this time, the client does not indicate any symptoms associated with coronavirus-19. Ebola Screen: Patient denies travel to an Ebola-affected area in the 21 days before illness onset. Initial Sepsis Screen: Does the patient meet any 2 criteria? No. Patient's initial sepsis screen is negative. Does the patient have a suspected source of infection? No. Patient's initial sepsis screen is negative. Risk Assessment: Do you want to hurt yourself or someone else? Patient reports no desire to harm self or others. Onset of symptoms was September 25, 2023. 14:37 Method Of Arrival: EMS ll1 14:37 Acuity: LATASHA 4 ll1 Historical: - Allergies: 14:36 Trazodone; ll1 - PMHx: 14:36 Alcoholism; Bipolar II; Hypertensive disorder; Parkinsons; Seizure; ll1 - Immunization history:: Adult Immunizations up to date. - Family history:: not pertinent. - Social history:: Smoking status: Patient reports the use of cigarette tobacco products, denies chronic smoking, but will smoke occasionally. - Hospitalizations: : No recent hospitalization is reported. Vital Signs: 14:38 ll1 14:38 Vitals stable for EMS. EKG WNL ll1 ED Course: 14:01 Patient arrived in ED. rg4 14:01 Kaiser Marie MD is Attending Physician. rn 14:20 Patient not in lobby when called to triage, registration saw him walk out of ED. ll1 14:36 Patient still not in lobby, Dr. Marie informed. ll1 14:37 Triage completed. ll1 Administered Medications: No medications were administered Outcome: 14:37 Discharge ordered by MD. rn 14:38 Discharged to home ambulatory, ll1 14:38 Condition: stable 14:38 Discharge instructions given to patient, Instructed on discharge instructions, follow up and referral plans. left without discharge instructions. 14:39 Patient left the ED. ll1 Signatures: Kaiser Marie MD MD rn Garcia, Rubi 4 Monet Masters RN RN ll1
--- NOTE | 2023-09-25 14:37 | EDPHYS ---
Physician Documentation [facility] Name: Walt Velazquez Age: 52 yrs Sex: Male : 1970 Arrival Date: 09/25/2023 Time: 13:59 Bed IW1 Private MD: ED Physician Kaiser Marie HPI: 09/24 14:34 This 52 yrs old Male presents to ER via Unassigned with complaints of Alcohol rn Intoxication, Chest Pain. 14:34 Patient brought in by EMS after being found laying down in grass once again. Patient rn reports was drinking and was trying to sleep. Patient was woken up and started to report chest pain as he often does. Denies any fever or cough. No vomiting. Denies blunt trauma.. Onset: The symptoms/episode began/occurred at an unknown time. Severity of symptoms: At their worst the symptoms were mild in the emergency department the symptoms are unchanged. The patient has experienced similar episodes in the past. The patient has not recently seen a physician. Historical: - Allergies: 14:36 Trazodone; ll1 - PMHx: 14:36 Alcoholism; Bipolar II; Hypertensive disorder; Parkinsons; Seizure; ll1 - Immunization history:: Adult Immunizations up to date. - Family history:: not pertinent. - Social history:: Smoking status: Patient reports the use of cigarette tobacco products, denies chronic smoking, but will smoke occasionally. - Hospitalizations: : No recent hospitalization is reported. ROS: 14:34 Constitutional: Negative for fever, chills, and weight loss, Cardiovascular: Positive rn for chest pain Respiratory: Negative for shortness of breath, cough, wheezing, and pleuritic chest pain, Abdomen/GI: Negative for abdominal pain, nausea, vomiting, diarrhea, and constipation, MS/Extremity: Negative for injury and deformity, Skin: Negative for injury, rash, and discoloration, Neuro: Negative for headache, weakness, numbness, tingling, and seizure, Exam: 14:34 Constitutional: Disheveled patient, awake, answers all questions, ambulatory from EMS rn stretcher to chair Head/Face: Normocephalic, atraumatic. ENT: Dry mucous membranes Cardiovascular: Regular rate and rhythm. Respiratory: No increased work of breathing, no retractions or nasal flaring. Abdomen/GI: Soft, non-tender Neuro: Awake and alert, GCS 15, oriented to person, place, time, and situation. Vital Signs: 14:38 ll1 14:38 Vitals stable for EMS. EKG WNL ll1 MDM: 14:01 Patient medically screened. rn 14:34 Care significantly affected by the following chronic conditions: Alcoholism and rn dependence. Counseling: I had a detailed discussion with the patient and/or guardian regarding to return to the emergency department if symptoms worsen or persist or if there are any questions or concerns that arise at home. Refusal of service: The patient/guardian displays adequate decision making capability and despite a detailed discussion of alternatives, benefits, risks, and consequences refuses: all lab tests, all X-rays, EKG. ED course: Patient did not appreciate being put in triage as opposed to room, was evaluated briefly and patient refuses all care, states feels fine and does not want further evaluation, understands risks of leaving. Patient walked out of the emergency room without further explanation.. 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 EDDC EDDC 14:38 14:01 EKG - Nurse/Tech ordered. rn ll1 14:38 14:01 Accucheck ordered. rn ll1
== END 2023-09-25 14:39 | disposition home or self-care (01) ==
LOC: ER 13:59
DX: R07.9 Chest pain, unspecified (principal); F10.20 Alcohol dependence, uncomplicated; F17.210 Nicotine dependence, cigarettes, uncomplicated; Z88.5 Allergy status to narcotic agent
CPT/HCPCS: 99283

== ENCOUNTER 2023-09-25 15:05 | Emergency (ER) | payer SELFPAY ==
--- OUTSIDE RECORDS SUMMARY | 2023-09-25 15:12 | XMS REPORT | Continuity of Care Document ---
Author Name Unknown Address [address] [facility] [place] [address] [facility] Address [address] [facility] [place] [address] Care Team Providers Care Coil Builder Name Role Phone Pcp-None Primary Care Physician Unavailab HEMANT Adame Attending Clinician Unavailable Hemant Klein MD Attending Clinician [phone] Pan Pinto Attending Clinician Unavailab JESSICA Gallardo Attending Clinician Unavailable Rayray Driscoll MD Attending Clinician [phone] Jessica Prado MD Attending Clinician [phone] Oswlad Murphy MD Attending Clinician [phone] DIYA CHOWDHURY Attending Clinician Unavailab Diya Mackey DO Attending Clinician [phone] Fidel Cuellar Attending Clinician Unavailable DIRK YARBROUGH Attending Clinician Unavailable Leticia Rowland Attending Clinician [phone] Dirk Yarbrough MD Attending Clinician [phone] Faye Portillo LVN Attending Clinician [phone] Pia Reddy Attending Clinician [phone] Vinnie Navarro Attending Clinician Unavailable OSWALD MURPHY Admitting Clinician Unavailable Oswald Murphy MD Admitting Clinician [phone] DIYA CHOWDHURY Admitting Clinician UnavailLeticia Gaytan Admitting Clinician Unavailable JESSICA PRADO Admitting Clinician Unavailable Jessica Prado MD Admitting Clinician [phone] Payers Payer Name Policy Type Policy Number Effective Date Expirati on Date Source [facility] [id number] 2022 00:00:00 Problems Condition Name Condition Details Condition Category Status Onset Date Resolution Date Last Treatment Date Treating Clinician Comments Source Alcohol withdrawal syndrome with complicati on Alcohol withdrawal syndrome with complicati on Disease Active 08-10 00:00: 00 [facility] Type 2 diabetes mellitus with other specified complicati on Type 2 diabetes mellitus with other specified complicati on Disease Active 12-29 00:00: 00 [facility] Dyslipidem ia Dyslipidem ia Disease Active 12-29 00:00: 00 [facility] Chest pain, unspecifie d type Chest pain, unspecifie d type Disease Active 12-28 00:00: 00 [facility] Priapism Priapism Disease Active 2013-06 1-06 00:00: 00 [facility] Allergies, Adverse Reactions, Alerts Allergy Name Allergy Type Status Severity Reaction(s) Onset Date Inactive Date Treating Clinician Comments Source No Known Drug Allergie s DA Active U 4-25 00:00: 00 [facility] No Known Drug Allergie s DA Active U 0 9-16 00:00: 00 [facility] No Known Drug Allergie s DA Active U 0 3-29 00:00: 00 [facility] No Known Drug Allergie s DA Active U 2019-06 2-16 00:00: 00 [facility] No Known Drug Allergie s DA Active U 2019-06 2-15 00:00: 00 [facility] No Known Drug Allergie s DA Active U 2019-06 2-02 00:00: 00 [facility] Trazodon e Propensi ty to adverse reaction s Active Other - See comments 10-06 00:00: 00 [facility] TRAZODON E DRUG INGREDI Active Other-Cmnt 10-06 00:00: 00 [facility] Social History Social Habit Start Date Stop Date Quantity Comments Source History of tobacco use Cigarette Smoker [facility] Exposure to SARS-CoV-2 (event) 2022-11-01 00:00:00 2022-11-11 13:57:00 Not sure [facility] Tobacco use and exposure 2022-08-10 00:00:00 2022-08-10 00:00:00 User of smokeless tobacco [facility] Alcohol intake 2022-08-10 00:00:00 2022-08-10 00:00:00 Current drinker of alcohol (finding) [facility] Tobacco Comment 2022-08-10 00:00:00 2022-08-10 00:00:00 1/2 a pack a day [facility] Sex Ass[birth year] At 1970 00:00:00 1970 00:00:00 [facility] Smoking Status Start Date Stop Date Source Smokes tobacco daily 2022-08-10 00:00:00 [facility] Medications Ordered Medication Name Filled Medication Name Start Date Stop Date Current Medication? Ordering Clinician Indication Dosage Frequency Signature (SIG) Comments Components Source NaCl 0.9% (NS) bolus infusion 1,000 mL 11-11 19:45: 00 11-11 20:23 :00 No 1000mL at 999 mL/hr, 1,000 mL, IV Piggyback, ONCE, 1 dose, On Thu11/11/22 at 1445, STAT [facility] multivitami n tablet 1 tablet 08-12 15:00: 00 Yes 1{tbl} 1 tablet, Oral, DAILY, First dose on Thu08/12/22 at 0900, Until Discontinu ed, Routine [facility] foLIC acid (FOLATE) tablet 1 mg 08-12 15:00: 00 Yes 1mg 1 mg, Oral, DAILY, First dose on Thu08/12/22 at 0900, Until Discontinu ed, Routine [facility] foLIC acid 1 mg tablet 08-12 00:00: 00 09-12 04:59 :00 No [id number] 1mg Take 1 tablet by mouth in the morning for 30 days. [facility] oxazepam (SERAX) capsule 15 mg 08-11 [...] Thu08/13/22 at 0600, Routine [Order 2 End] [facility] thiamine (VITAMIN B1) tablet 100 mg 08-11 16:15: 00 Yes 100mg 100 mg, Oral, DAILY, First dose on Thu08/11/22 at 1015, Until Discontinu ed, Routine [facility] enoxaparin (LOVENOX) injection 40 mg 08-10 23:00: 00 Yes 40mg 40 mg, Subcutaneo us, DAILY, First dose on Thu08/10/22 at 1700, Until Discontinu ed, Routine [facility] NaCl 0.9% (NS) IV infusion 1,000 mL 08-10 15:00: 00 Yes 1000mL at 125 mL/hr, IV Infusion, CONTINUOUS , Starting on Thu08/10/22 at 0900, Until Discontinu ed, Routine [facility] foLIC acid (FOLATE) 5 mg in NaCl 0.9% (NS) piggyback 08-10 15:00: 00 08-11 16:14 :47 No 5mg IV Piggyback, DAILY, First dose on Thu08/10/22 at 0900, Until Discontinu ed, 50 mL [facility] thiamine (VITAMIN B1) 100 mg in NaCl 0.9% (NS) piggyback 08-10 15:00: 00 08-10 16:08 :00 No 100mg IV Piggyback, DAILY, 1 dose, First dose on Thu08/10/22 at 0900, 50 mL [facility] LORazepam (ATIVAN) injection 2 mg 08-10 14:52: 57 Yes 2mg 2 mg, Slow IV Push, Q4HPRN, Starting on 08/10/22 at 0852, Until Discontinu ed, Routine, Seizures, Agitation, Anxiety [facility] Sliding Scale Insulin-Reg ular + Fsbg Testing 08-10 13:30: 00 Yes Subcutaneo us, AC+HS, First dose on Thu08/10/22 at 0730, Until Discontinu ed, Routine [facility] oxazepam (SERAX) capsule 15 mg 08-10 12:08: 05 Yes 15mg 15 mg, Oral, Q4HPRN, Starting on 08/10/22 at 0608, Until Discontinu ed, Routine, Only while awake for DBP equal to or greater than 100, HR equal to or greater than 100. [facility] dextrose 10% (D10W) bolus infusion 250 [...] unable to swallow or has mental changes. [facility] ondansetron (ZOFRAN (PF)) injection 4 mg 08-10 12:02: 53 Yes 4mg 4 mg, Slow IV Push, Q6HPRN, Starting on Thu08/10/22 at 0602, Until Discontinu ed, Routine, Nausea and Vomiting (N/V) [facility] ibuprofen (MOTRIN IB) tablet 200 mg 08-10 12:02: 45 Yes 200mg 200 mg, Oral, Q6HPRN, Starting on Thu08/10/22 at 0602, Until Discontinu ed, Routine, Pain (scale 1-3) [facility] NaCl 0.9% (NS) bolus infusion 1,000 mL 08-10 10:15: 00 08-10 13:00 :00 No 1000mL at 999 mL/hr, 1,000 mL, IV Infusion, ONCE, 1 dose, On Thu08/10/22 at 0415, STAT [facility] LORazepam (ATIVAN) injection 0.5 mg 08-10 09:15: 00 08-10 09:19 :00 No .5mg 0.5 mg, Slow IV Push, ONCE, 1 dose, On Thu08/10/22 at 0315, STAT [facility] LORazepam (ATIVAN) injection 1 mg 08-10 08:00: 00 08-10 07:05 :00 No 1mg 1 mg, Slow IV Push, ONCE NOW, 1 dose, On Thu08/10/22 at 0200, STAT [facility] thiamine (VITAMIN B1) injection 100 mg 08-10 06:45: 00 08-10 06:52 :00 No 100mg 100 mg, Intravenou s, ONCE, 1 dose, On 08/10/22 at 0045, JACIEL [facility] LORazepam (ATIVAN) injection 1 mg 08-10 05:15: 00 08-10 05:22 :00 No 1mg 1 mg, Slow IV Push, ONCE, 1 dose, On 08/09/22 at 2315, STAT [facility] ketorolac (TORADOL) injection 15 mg 2021-06 16:00: 00 04-06 14:50 :00 No 15mg 15 mg, Slow IV Push, ONCE, 1 dose, On 04/06/22 at 1100, [facility] ondansetron (ZOFRAN (PF)) injection 4 mg 2021-06 15:45: 00 04-06 14:50 :00 No 4mg 4 mg, Slow IV Push, ONCE, 1 dose, On 04/06/22 at 1045, [facility] oxazepam (SERAX) capsule 15 mg 12-31 06:28: 17 01-01 06:29 :00 No 15mg 15 mg, Oral, Q12H TAPER, 2 doses, First dose on Thu12/31/21 at 0130, Last dose on Thu12/31/21 at 1330, Routine [facility] multivitami n tablet 12-31 00:00: 00 Yes [id number] 1{tbl} Take 1 tablet by mouth in the morning. [facility] thiamine 100 mg tablet 12-31 00:00: 00 Yes [id number] 100mg Take 1 tablet by mouth in the morning. [facility] aspirin 81 mg chewable tablet 12-31 00:00: 00 Yes [id number] 81mg Take 1 tablet by mouth in the morning. [facility] foLIC acid 1 mg tablet 12-31 00:00: 00 01-31 04:59 :00 No [id number] 1mg Take 1 tablet by mouth in the morning for 30 days. [facility] metFORMIN 500 mg tablet 12-30 00:00: 00 Yes [id number] 500mg Take 1 tablet by mouth in the morning and 1 tablet in the evening. Take with meals. [facility] aspirin chewable tablet 81 mg 12-29 14:00: 00 Yes 81mg 81 mg, Oral, DAILY, First dose on 12/29/21 at 0900, Until Discontinu ed, Routine [facility] sulfur hexafluorid e microsphr (LUMASON) injection 5 mL 12-29 13:45: 00 12-29 13:45 :00 No [id number] 5mL 5 mL, Intravenou s, ONCE, 1 dose, On 12/29/21 at 0845, Routine
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 approving Restricted medication : STEFANIE GORMAN [facility] enoxaparin (LOVENOX) injection 40 mg 12-29 13:00: 00 Yes 40mg 40 mg, Subcutaneo us, Q24H, First dose on 12/29/21 at 0800, Until Discontinu ed, Routine [facility] Sliding Scale Insulin - Lispro (HumaLOG) + Fsbg Testing 12-29 13:00: 00 Yes Subcutaneo us, TID MEALS+HS, First dose on 12/29/21 at 0800, Until Discontinu ed, Routine [facility] diazePAM (VALIUM) injection 10 mg 12-29 05:30: 00 12-29 04:40 :00 No 10mg 10 mg, Intravenou s, ONCE, 1 dose, On 12/29/21 at 0030, Routine [facility] diazePAM (VALIUM) injection 10 mg 12-29 04:15: 00 12-29 03:17 :00 No 10mg 10 mg, Intravenou s, ONCE, 1 dose, On 12/28/21 at 2315, Routine [facility] diazePAM (VALIUM) injection 5 mg 12-29 03:45: 01 Yes 5mg 5 mg, Intravenou s, QIDPRN, Starting on 12/28/21 at 2245, Until Discontinu ed, Routine, Seizures, Agitation [facility] foLIC acid (FOLATE) tablet 1 mg 12-29 03:45: 00 Yes 1mg 1 mg, Oral, DAILY, First dose on 12/28/21 at 2245, Until Discontinu ed, Routine [facility] thiamine (VITAMIN B1) tablet 100 mg 12-29 03:45: 00 Yes 100mg 100 mg, Oral, DAILY, First dose (after last modificati on) on 12/28/21 at 2245, Until Discontinu ed, Routine [facility] glucagon (GLUCAGEN DIAGNOSTIC KIT) injection 1 mg 12-29 03:42: 19 Yes 1mg 1 mg, Intramuscu lar, PRN, Starting on 12/28/21 at 2242, Until Discontinu ed, JACIEL, Blood Glucose < or = 70 mg/dL and patient is unable to swallow or has mental changes. [facility] dextrose 10% (D10W) bolus infusion 250 [...] blood glucose is < 80 mg/dL, repeat.
[facility] LORazepam (ATIVAN) injection 1 mg 12-29 03:30: 00 12-29 02:32 :00 No 1mg 1 mg, Intravenou s, ONCE, 1 dose, On 12/28/21 at 2230, Routine
Is the medication being used for status epilepticu s? No [facility] oxazepam (SERAX) capsule 15 mg 12-29 00:28: 20 Yes 15mg 15 mg, Oral, Q4HPRN, Starting on 12/28/21 at 1928, Until Discontinu ed, Routine, Only while awake for DBP equal to or greater than 100, HR equal to or greater than 100. [facility] ondansetron (ZOFRAN (PF)) injection 4 mg 12-29 00:23: 47 Yes 4mg 4 mg, Slow IV Push, Q6HPRN, Starting on 12/28/21 at 1923, Until Discontinu ed, Routine, Nausea and Vomiting (N/V) [facility] acetaminoph en (TYLENOL) tablet 650 mg 12-29 00:23: 37 Yes 650mg 650 mg, Oral, Q6HPRN, Starting on 12/28/21 at 192, Until Discontinu ed, Routine, Pain (scale 1-3), Temp > 38.5 C [facility] chlordiazeP OXIDE (LIBRIUM) capsule 25 mg 12-28 23:15: 00 12-28 23:24 :00 No 25mg 25 mg, Oral, ONCE, 1 dose, On 12/28/21 at 1815, [facility] NaCl 0.9% (NS) bolus infusion 2,000 mL 12-28 22:45: 00 12-28 23:18 :00 No 2000mL at 999 mL/hr, 2,000 mL, IV Infusion, ONCE, 1 dose, On 12/28/21 at 1745, [facility] LORazepam (ATIVAN) injection 1 mg 12-28 20:45: 00 12-28 20:49 :00 No 1mg 1 mg, Slow IV Push, ONCE, 1 dose, On 12/28/21 at 1545, STAT
Is the medication being used for status epilepticu s? No [facility] acetaminoph en (TYLENOL) 500 mg tablet 17 00:00: 00 Yes 500mg Take 1 Tab by mouth every 6 (six) hours as needed for Pain. [facility] Vital Signs Vital Name Observation Time Observation Value Comments Veronica xiong Systolic blood pressure 2022-11-11 20:31:31 116 mm[Hg] [facility] Diastolic blood pressure 2022-11-11 20:31:31 77 mm[Hg] [facility] Heart rate 2022-11-11 20:31:31 84 /[facility] Respiratory rate 2022-11-11 20:31:31 12 /min [facility] Oxygen saturation in Arterial blood by Pulse oximetry 2022-11-11 20:31:31 90 /min [facility] Body temperature 2022-11-11 18:49:00 37.11 Theresa [facility] Body height 2022-11-11 18:49:00 160 cm [facility] Body weight 2022-11-11 18:49:00 68.04 kg [facility] BMI 2022-11-11 18:49:00 26.57 kg/m2 [facility] Body temperature 2022-08-11 14:00:00 36.5 Theresa [facility] Systolic blood pressure 2022-08-11 10:00:00 116 mm[Hg] [facility] Diastolic blood pressure 2022-08-11 10:00:00 71 mm[Hg] [facility] Heart rate 2022-08-11 10:00:00 70 /min [facility] Respiratory rate 2022-08-11 10:00:00 16 /min [facility] Body weight 2022-08-11 10:00:00 65.499 kg [facility] BMI 2022-08-11 10:00:00 25.58 kg/m2 [facility] Oxygen saturation in Arterial blood by Pulse oximetry 2022-08-11 10:00:00 100 /min [facility] Body height 2022-08-10 22:12:00 160 cm [facility] Systolic blood pressure 2022-04-06 16:00:00 125 mm[Hg] [facility] Diastolic blood pressure 2022-04-06 16:00:00 75 mm[Hg] [facility] Heart rate 2022-04-06 16:00:00 87 /min [facility] Respiratory rate 2022-04-06 16:00:00 22 /min [facility] Oxygen saturation in Arterial blood by Pulse oximetry 2022-04-06 16:00:00 98 /min [facility] Body temperature 2022-04-06 14:41:00 37 Theresa [facility] Body height 2022-04-06 14:41:00 160 cm [facility] Body weight 2022-04-06 14:41:00 63.504 kg [facility] BMI 2022-04-06 14:41:00 24.80 kg/m2 [facility] Systolic blood pressure 2022-01-20 02:27:00 121 mm[Hg] [facility] Diastolic blood pressure 2022-01-20 02:27:00 75 mm[Hg] [facility] Heart rate 2022-01-20 02:27:00 79 /min [facility] Respiratory rate 2022-01-20 02:27:00 12 /min [facility] Oxygen saturation in Arterial blood by Pulse oximetry 2022-01-20 02:27:00 98 /min [facility] Body temperature 2022-01-19 22:19:00 36.44 Theresa [facility] Body weight 2022-01-19 22:19:00 60.328 kg [facility] BMI 2022-01-19 22:19:00 23.56 kg/m2 [facility] Systolic blood pressure 2021-12-30 20:52:00 134 mm[Hg] [facility] Diastolic blood pressure 2021-12-30 20:52:00 76 mm[Hg] [facility] Heart rate 2021-12-30 20:52:00 67 /min [facility] Body temperature 2021-12-30 20:26:00 36.67 Theresa [facility] Oxygen saturation in Arterial blood by Pulse oximetry 2021-12-30 20:26:00 99 /min [facility] Respiratory rate 2021-12-30 16:21:00 18 /min [facility] Body weight 2021-12-30 08:27:00 60.464 kg [facility] BMI 2021-12-30 08:27:00 23.61 kg/m2 [facility] Body height 2021-12-29 01:29:00 160 cm [facility] Procedures Procedure Date / Time Performed Performing Clinician Source MAGNESIUM 2022-11-11 19:05:00 Hemant Klein [facility] BASIC METABOLIC PANEL (NA, K, CL, CO2, GLUCOSE, BUN, CREATININE, CA) 2022-11-11 19:05:00 Hemant Klein [facility] ETHANOL 2022-11-11 19:05:00 Hemant Klein [facility] CBC WITH DIFF 2022-11-11 19:05:00 Hemant Klein [facility] POCT GLUCOSE (AUTOMATED) 2022-08-11 13:36:00 Arvind Prado [facility] PHOSPHORUS 2022-08-11 10:35:00 Jessica Prado [facility] MAGNESIUM 2022-08-11 10:35:00 Eve [facility] AMMONIA, PLASMA 2022-08-11 10:35:00 Jessica Prado [facility] COMP. METABOLIC PANEL ([id number]) 2022-08-11 10:35:00 Jessica Prado [facility] CBC WITH DIFF 2022-08-11 10:35:[address] [facility] POCT GLUCOSE (AUTOMATED) 2022-08-11 02:15:00 Arvind Prado [facility] POCT GLUCOSE (AUTOMATED) 2022-08-10 23:10:00 Arvind Prado [facility] POCT GLUCOSE (AUTOMATED) 2022-08-10 18:20:00 Arvind Prado [facility] POCT GLUCOSE (AUTOMATED) 2022-08-10 14:11:00 Arvind Prado [facility] POCT GLUCOSE (AUTOMATED) 2022-08-10 10:59:00 Gopal Driscoll [facility] COVID-19 (ID NOW RAPID TESTING) 2022-08-10 07:17:00 Rayray Driscoll [facility] LAB ONLY COVID INTERPRETATION 2022-08-10 07:17:00 Rayray Driscoll [facility] HB ECG ROUTINE & RHYTHM STRIP 2022-08-10 06:03:48 Rayray Driscoll [facility] URINALYSIS 2022-08-10 05:46:00 [facility] URINE DRUG (IMMUNOASSAY) - COMPREHENSIVE DRUG SCREEN W/O REFLEX 2022-08-10 05:45:00 Rayray Driscoll [facility] CREATINE KINASE 2022-08-10 05:16:00 [facility] 2022-08-10 05:16:[address] [facility] MAGNESIUM 2022-08-10 05:16:[address] [facility] TROPONIN I 2022-08-10 05:16:[address] [facility] COMP. METABOLIC PANEL ([id number]) 2022-08-10 05:16:00 Rayray Driscoll [facility] ETHANOL 2022-08-10 05:16:[address] [facility] CBC WITH DIFF 2022-08-10 05:16:00 Rayray Driscoll [facility] N-TERMINAL PRO-BNP 2022-08-10 05:16:00 Rayray Driscoll [facility] CRITICAL CARE 2022-08-10 04:52:00 Rayray Driscoll [facility] XR CHEST 1 VW 2022-04-06 14:51:50 [facility] 2022-04-06 14:42:00 [facility] TROPON[facility] 2022-04-06 14:42:00 Diya Chowdhury [facility] COMP. METABOLIC PANEL ([id number]) 2022-04-06 14:42:00 Diya Chowdhury [facility] CBC WITH DIFF 2022-04-06 14:42:00 [facility] PROT[facility] / INR 2022-04-06 14:42:00 Diya Chowdhury [facility] ACTIVATED PARTIAL THRMPLAS NELDA 2022-04-06 14:42:00 Diya Chowdhury [facility] LACTIC ACID WHOLE BLOOD 2022-01-20 00:22:00 Leticia Baldwin [facility] URINE DRUG (IMMUNOASSAY) - COMPREHENSIVE DRUG SCREEN 2022-01-19 23:10:00 Leticia Baldwin [facility] URINALYSIS 2022-01-19 23:10:[address] [facility] TROPONIN I 2022-01-19 23:00:[address] [facility] COMP. METABOLIC PANEL ([id number]) 2022-01-19 23:00:00 Leticia Baldwin [facility] LITHIUM 2022-01-19 23:00:[address] [facility] ETHANOL 2022-01-19 23:00:[address] [facility] CBC WITH DIFF 2022-01-19 23:00:00 Leticia Baldwin [facility] COVID-19 (ID NOW RAPID TESTING) 2022-01-19 23:00:00 Leticia Baldwin [facility] CT HEAD WO CONTRAST 2022-01-19 22:49:00 Leticia Baldwin [facility] XR CHEST 1 VW 2022-01-19 22:41:00 Leticia Baldwin [facility] POCT GLUCOSE (AUTOMATED) 2022-01-19 22:25:00 Leticia Baldwin [facility] POCT GLUCOSE (AUTOMATED) 2021-12-30 21:55:00 Avrind Prado [facility] POCT GLUCOSE (AUTOMATED) 2021-12-30 16:21:00 Arvind Prado [facility] POCT GLUCOSE (AUTOMATED) 2021-12-30 12:30:00 Arvind Prado [facility] HEPATIC FUNCTION PANEL ([id number]) (ALB,T.PRO,BILI T,BU/BC,ALT,AST,ALK PHOS) 2021-12-30 09:28:00 Maira Gaitan [facility] POCT GLUCOSE (AUTOMATED) 2021-12-30 02:11:00 Arvind Prado [facility] POCT GLUCOSE (AUTOMATED) 2021-12-29 21:41:00 Arvind Prado [facility] POCT GLUCOSE (AUTOMATED) 2021-12-29 16:37:00 Arvind Prado [facility] TRANSTHORACIC ECHO (TTE) COMPLETE W/ CONTRAST 2021-12-29 13:05:00 Jessica Prado [facility] POCT GLUCOSE (AUTOMATED) 2021-12-29 12:41:00 Arvind Prado [facility] TROPONIN I 2021-12-29 09:42:00 Jessica Prado [facility] TROPONIN I 2021-12-29 04:55:00 Eve [facility] CT HEAD WO CONTRAST 2021-12-28 21:18:22 Poppy Renteria [facility] AMMONIA, PLASMA 2021-12-28 21:00:00 Pia Renteria [facility] COVID-19 (ID NOW RAPID TESTING) 2021-12-28 20:42:00 Pia Renteria [facility] LAB ONLY COVID INTERPRETATION 2021-12-28 20:42:00 Pia Renteria [facility] URINE DRUG (IMMUNOASSAY) - COMPREHENSIVE DRUG SCREEN W/O REFLEX 2021-12-28 20:42:00 Pia Renteria [facility] URINALYSIS 2021-12-28 20:40:00 Pia Renteria [facility] N-TERMINAL PRO-BNP 2021-12-28 20:40:00 Corina Renteria [facility] TROPONIN I 2021-12-28 20:40:00 Pia Renteria [facility] THYROID STIMULATING HORMONE 2021-12-28 20:40:00 Jessica Prado [facility] COMP. METABOLIC PANEL ([id number]) 2021-12-28 20:40:00 Pia Renteria [facility] LIPID PANEL ([id number])(TOTAL CHOLESTEROL, TRIGLYCERIDES, HDL) 2021-12-28 20:40:00 Demetrius Langford [facility] ETHANOL 2021-12-28 20:40:00 Demetrius Langford [facility] CBC WITH DIFF 2021-12-28 20:40:00 Pia Renteria [facility] GLYCOSYLATED HEMOGLOBIN (A1C) 2021-12-28 20:40:00 Jessica Prado [facility] PROTHROMBIN TIME / INR 2021-12-28 20:40:00 Lesly Renteria [facility] XR CHEST 1 VW 2021-12-28 20:16:00 Pia Renteria [facility] HB ECG ROUTINE & RHYTHM STRIP 2021-12-28 20:04:59 Pia Renteria [facility] Encounters Start Date/Time End Date/Time Encounter Type Admission Type Attending [facility] Care Facility Care Department Encounter ID Source 2021-09-17 16:45:00 Inpatient [facility] [id number] [facility] 2020-06-06 16:07:00 Inpatient [facility] [facility] [id number] [facility] 2020-06-06 06:20:00 Inpatient [facility] [id number] [facility] 2020-06-05 19:35:00 Inpatient [facility] [id number] [facility] 2020-05-23 19:53:00 Inpatient [facility] [id number] [facility] 2020-05-23 19:53:00 Inpatient [facility] [id number] [facility] 2022-11-11 13:50:00 2022-11-11 16:07:00 Emergency X HEMANT KLEIN [facility] ERT [id number] [facility] 2022-11-11 13:50:00 2022-11-11 16:07:00 Emergency Jessica, Hemant [facility] 1.2.840.114 350.1.13.10 4.2.7.2.686 [id number] [facility] 2022-10-14 20:59:00 2022-10-14 20:59:00 Emergency [facility] [id number] 66 [facility] 2022-10-14 20:59:00 2022-10-14 20:59:00 Emergency Emergency Pan Pinto [facility] [id number] [facility] 2022-08-09 22:59:00 2022-08-11 13:02:00 Outpatient X JESSICA PRADO [facility] [id number] [facility] 2022-08-09 22:59:00 2022-08-11 13:02:00 Emergency Rayray Driscoll Jelani Edionwe, [facility] 1.2.840.114 350.1.13.10 4.2.7.2.686 [id number] [facility] 2022-04-06 09:38:00 2022-04-06 11:42:00 Emergency X DIYA CHOWDHURY [facility] ERT [id number] [facility] 2022-04-06 09:38:00 2022-04-06 11:42:00 Emergency Toddjose l Diya [facility] 1.2.840.114 350.1.13.10 4.2.7.2.686 [id number] [facility] 2022-03-07 12:38:00 2022-03-07 12:38:00 Emergency [facility] [id number] [facility] 2022-03-07 12:38:00 2022-03-07 12:38:00 Emergency Emergency Fidel Cuellar [facility] [id number] [facility] 2022-01-19 17:18:00 2022-01-19 22:00:00 Emergency X NNEKA DIRK [facility] ERT [id number] [facility] 2022-01-19 17:18:00 2022-01-19 22:00:00 Emergency Leticia Baldwinveronica Amado [facility] 1.2.840.114 350.1.13.10 4.2.7.2.686 [id number] [facility] 2021-12-31 00:00:00 2021-12-31 00:00:00 Transition of Care Faye Portillo 1.2.840.114 350.1.13.10 4.2.7.2.686 [id number] [facility] 2021-12-28 14:53:00 2021-12-30 17:42:00 Inpatient X JESSICA PRADO [facility] MARGO [id number] [facility] 2021-12-28 14:53:00 2021-12-30 17:42:00 Hospital Encounter Pia Renteria Jelani [facility] 1.2.840.114 350.1.13.10 4.2.7.2.686 [id number] [facility] 2021-09-17 16:47:00 2021-09-17 16:47:00 Emergency [facility] [id number] [address] [place] [address] 2020-06-06 16:07:00 2020-06-06 16:07:00 Emergency [facility] [id number] [facility] Results Test Description Test Time Test Comments Results Resul t Comments Source ETHANOL 2022-11-11 19:45:56 ALCOHOL<10mg/dL0 11/11/2022 2:[facility] Ocoswqny13-359 Toxic>100 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 [facility] 19:41:47* Test Item Value Reference Range Interpretation Comme nts MAGNESIUM (test code = 7234620801) 1.8 mg/dL 1.7-2.4 Lab Interpretation (test cod e = 90171-9) Normal [facility] WITH [id number] 19:25:26* Test Item Value Reference Range Interpretation [...] 33.9 g/dL 31.2-35.0 RDW-SD (test code = 00607-3) 46.0 fL 38.5-51.6 RDW-CV (test code = 788-0) 13.5 % 12.1-15.4 PLT (test code = 777-3) 237 See_Comment [Automated messa ge] The system which generated this result transmitted reference range: 150 - 328 10*3/?L. The reference range was not used to interpret this result as normal/abnormal. MPV (test code = 80842-5) 8.9 fL 9.8-13.0 L NRBC/100 WBC (test code = 3581697589) 0.0 See_Comment [Automated me ssage] The system which generated this result transmitted reference range: 0.0 - 10.0 /100 WBCs. The reference range was not used to interpret this result as normal/abnormal. NRBC x10^3 (test code = 6774552237) See_Comment [Automated messa ge] The system which generated this result transmitted reference range: 10*3/?L. The reference range was not used to interpret this result as normal/abnormal. GRAN MAT (NEUT) % (test code = 770-8) 71.2 % IMM GRAN % (test code = 4130009760) 0.30 % LYMPH % (test code = 736-9) 18.2 % MONO % (test code = 5905-5) 8.4 % EOS % (test code = 713-8) 1.0 % BASO % (test code = 706-2) 0.9 % GRAN MAT x10^3(ANC) (test code = 3109819723) 4.86 10*3/uL 1.99-6.95 IMM GRAN x10^3 (test code = 1792593573) 0.00-0.06 LYMPH x10^3 (test code = 731-0) 1.24 10*3/uL 1.09-3.23 MONO x10^3 (test code = 742-7) 0.57 10*3/uL 0.36-1.02 EOS x10^3 (test code = 711-2) 0.07 10*3/uL 0.06-0.53 BASO x10^3 (test code = 704-7) 0.06 10*3/uL 0.01-0.09 Lab Interpretation (test code = 92815-4) [facility] Rflx Cult/Kbgft6063-54-67 22:20:00* Test Item Value Reference Range Interpretation Comme nts Color,Urine (test code = UCOL) Yellow Yellow Clarity,Urine (test code = UCLAR) Clear Clear Ph, Urine (test code = UPH) 7.0 5.0-9.0 N Specific [place],Urine (test code = USG) 1.020 1.005-1.030 N [...] code = ULEU) Negative mg/dL Negative Drug Screen,Qsrwp1428-92-81 22:20:00* Test Item Value Reference Range Interpretation [...] UPROP) Negative Negative Complete Blood Count Auto Qqki4869-21-78 21:21:00* Test Item Value Reference Range Interpretation [...] code = NRBCP) 0 % Comprehensive Metabolic Astqe7407-15-32 21:21:00* Test Item Value Reference Range Interpretation [...] a race coefficient. Additional information canbe found at:[email or web address]_[email or web address] 5.pdf ([email or web address]) [Automated message] The system [...] = ALP) 134 U/L 46-116 H Ethanol Iktpb2463-79-95 21:21:00* Test Item Value Reference Range Interpretation Comme nts Ethanol (test code = ETOH) < 3 mg/dL The pharmacologi yudy response to blood alcohol levels mayvary from individual to individual. The fatal concentrationhas been reported to be >400mg/dL. POCT GLUCOSE (AUTOMATED)2022-08-11 13:40:35* Test Item Value Reference Range Interpretation Comme [facility] POCT GLU (test code = 1736001269) 121 mg/dL 70-110 H Lab Interpretation (test cod e = 32732-1) Abnormal [facility] GLUCOSE (AUTOMATED)2022-08-11 02:18:58* Test Item Value Reference Range Interpretation Comme [facility] POCT GLU (test code = 5880708633) 183 mg/dL 70-110 H Lab Interpretation (test cod e = 20641-8) Abnormal [facility] GLUCOSE (AUTOMATED)2022-08-10 23:16:11* Test Item Value Reference Range Interpretation Comme nts POCT GLU (test code = 5707141500) 176 mg/dL 70-110 H Lab Interpretation (test cod e = 92510-0) Abnormal [facility] GLUCOSE (AUTOMATED)2022-08-10 18:22:51* Test Item Value Reference Range Interpretation Comme nts POCT GLU (test code = 6847088139) 165 mg/dL 70-110 H Lab Interpretation (test cod e = 21017-2) Abnormal [facility] GLUCOSE (AUTOMATED)2022-08-10 14:18:05* Test Item Value Reference Range Interpretation Comme nts POCT GLU (test code = 9313962338) 138 mg/dL 70-110 H Lab Interpretation (test cod e = 94448-5) Abnormal [facility] GLUCOSE (AUTOMATED)2022-08-10 11:01:21* Test Item Value Reference Range Interpretation Comme nts POCT GLU (test code = 5503130054) 143 mg/dL 70-110 H Lab Interpretation (test cod e = 13474-0) Abnormal [facility] [id number] 06:51:18* Test Item Value Reference Range Interpretation Comme nts TROPONIN I (test code = 2457580340) 0.008 ng/mL <=0.034 JUAN ALBERTO (test code [...] of biotin. Lab Interpretation (test code = 89939-3) Normal [facility]ano[facility]-TERMINAL BUC-NDZ6584-37-19 06:47:37* Test Item Value Reference Range Interpretation Comme nts NT-proBNP (test code = 5600589776) 37 pg/mL <=125 JUAN ALBERTO (test code = JUAN ALBERTO) Biotin has been reported to cause a negative bias, interpret results relative to patient's use of biotin. Lab Interpretation (test code = 89544-1) Normal [facility]2023-02-19 06:25:52 ALCOHOL<10mg/dL08/10/2022 12:25 AM [facility]<10 Arlkcxlh65-010 Toxic>100 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 Fatalities [facility]ortedB[facility]anoCOMP. METABOLIC PANEL (93274)2022-08-10 06:19:15* Test Item Value Reference Range Interpretation Comme nts NA (test code = 9989786110) 135 mmol/L 135-145 K (test code = 7355605245) 4.3 mmol/L 3.5-5.0 CL (test code = 6993313934) 98 mmol/L 98-108 CO2 TOTAL (test code = 8016957354) 30 mmol/L 23-31 AGAP (test code = 2377807983) 7 2-16 BUN (test code = 7983221978) 11 mg/dL 7-23 GLUCOSE (test code = 6010794112) 153 mg/dL 70-110 H CREATININE (test code = 3037919549) 0.77 mg/dL 0.60-1.25 TOTAL BILI (test code = 8327359200) 0.9 mg/dL 0.1-1.1 CALCIUM (test code = 7434404537) 10.0 mg/dL 8.6-10.6 T PROTEIN (test code = 1280397932) 7.7 g/dL 6.3-8.2 ALBUMIN (test code = 9345564529) 4.6 g/dL 3.5-5.0 ALK PHOS (test code = 3738443036) 92 U/L 34-122 ALTv (test code = 1742-6) 35 U/L 5-50 AST(SGOT) (test code = 0337662201) 42 U/L 13-40 H eGFR (test code = 3252782038) 106.1 mL/min/1.73m2 JUAN ALBERTO (test code = [...] imaging tests). Lab Interpretation (test code = 15188-1) Abnormal [facility]2023-02-19 06:19:15* Test Item Value Reference Range Interpretation Comme nts MAGNESIUM (test code = 5159304039) 2.2 mg/dL 1.7-2.4 Lab Interpretation (test cod e = 34498-6) Normal [facility]2023-02-19 06:18:55* Test Item Value Reference Range Interpretation Comme nts LIPASE (test code = 0615341968) 18 U/L 0-220 Lab Interpretation (test cod e = 99131-4) Normal [facility]anoCREATINE DDUPMS3233-45-87 06:18:55* Test Item Value Reference Range Interpretation Comme nts CK (test code = 6400015900) 174 U/L 33-194 Lab Interpretation (test cod e = 43923-4) Normal [facility] WITH DVNM7916-46-13 06:02:35* Test Item Value Reference Range Interpretation [...] 32.4 g/dL 31.2-35.0 RDW-SD (test code = 85431-3) 50.2 fL 38.5-51.6 RDW-CV (test code = 788-0) 14.3 % 12.1-15.4 PLT (test code = 777-3) 241 See_Comment [Automated messa ge] The system which generated this result transmitted reference range: 150 - 328 10*3/?L. The reference range was not used to interpret this result as normal/abnormal. MPV (test code = 25016-8) 8.6 fL 9.8-13.0 L NRBC/100 WBC (test code = 8469623620) 0.0 See_Comment [Automated The X Train ssage] The system which generated this result transmitted reference range: 0.0 - 10.0 /100 WBCs. The reference range was not used to interpret this result as normal/abnormal. NRBC x10^3 (test code = 9301243816) See_Comment [Automated messa ge] The system which generated this result transmitted reference range: 10*3/?L. The reference range was not used to interpret this result as normal/abnormal. GRAN MAT (NEUT) % (test code = 770-8) 63.9 % IMM GRAN % (test code = 0095167790) 0.50 % LYMPH % (test code = 736-9) 17.6 % MONO % (test code = 5905-5) 16.5 % EOS % (test code = 713-8) 0.7 % BASO % (test code = 706-2) 0.8 % GRAN MAT x10^3(ANC) (test code = 2868481780) 4.79 10*3/uL 1.99-6.95 IMM GRAN x10^3 (test code = 4790013594) 0.04 10*3/uL 0.00-0.06 LYMPH x10^3 (test code = 731-0) 1.32 10*3/uL 1.09-3.23 MONO x10^3 (test code = 742-7) 1.24 10*3/uL 0.36-1.02 H EOS x10^3 (test code = 711-2) 0.05 10*3/uL 0.06-0.53 L BASO x10^3 (test code = 704-7) 0.06 10*3/uL 0.01-0.09 Lab Interpretation (test code = 23978-2) Abnormal [facility] [id number] 15:15:32* Test Item Value Reference Range Interpretation Comments TROPONIN I (test code = 4413068575) 0.007 ng/mL See_Comment [Automated message] The system [...] of biotin. Lab Interpretation (test code = 82490-0) Normal [facility]anoaPTT2022-10-16 15:08:29* Test Item Value Reference Range Interpretation Comme [facility] APTT Patient (test code = 3173-2) See_Comment [Automated message] The system which generated this result transmitted reference range: 23 - 38 Seconds. The reference range was not used to interpret this result as normal/abnormal. JUAN ALBERTO (test code = JUAN ALBERTO) The [facility] patient population mean normal value for aPTT is 30 seconds. Lab Interpretation (test code = 03966-3) Normal [facility] PlanoPROTHROMBIN TIME / CFP5421-06-27 15:06:28* Test Item Value Reference Range Interpretation [...] the indications. Lab Interpretation (test code = 61534-3) Normal [facility]anoCOMP. METABOLIC PANEL (07090)2022-04-06 15:03:31* Test Item Value Reference Range Interpretation Comme [facility] NA (test code = 5363591296) 136 mmol/L 135-145 K (test code = 8890168307) 5.0 mmol/L 3.5-5 CL (test code = 0495458917) 104 mmol/L 98-108 CO2 TOTAL (test code = 2936663370) 21 mmol/L 23-31 L AGAP (test code = 4462290866) 2-16 BUN (test code = 4770291821) 11 mg/dL 7-23 GLUCOSE (test code = 4733082234) 162 mg/dL 70-110 H CREATININE (test code = 4371438962) 0.52 mg/dL 0.6-1.25 L TOTAL BILI (test code = 2224981132) 1.0 mg/dL 0.1-1.1 CALCIUM (test code = 8029632920) 9.3 mg/dL 8.6-10.6 T PROTEIN (test code = 5318896660) 7.4 g/dL 6.3-8.2 ALBUMIN (test code = 5179745179) 4.4 g/dL 3.5-5 ALK PHOS (test code = 9447856035) 134 U/L 34-122 H ALTv (test code = 1742-6) 17 U/L 5-50 AST(SGOT) (test code = 8734317318) 38 U/L 13-40 eGFR (test code = 8705076945) mL/min/1.73m2 JUAN ALBERTO (test code = JUAN [...] imaging tests). Lab Interpretation (test code = 23469-5) [facility] BranchLIPASE, CWPUX1075-76-37 15:03:31* Test Item Value Reference Range Interpretation Comme nts LIPASE (test code = 2191054897) 29 U/L 0-220 Lab Interpretation (test cod e = 95673-4) Normal [facility] WITH DTWU1973-26-35 14:51:49* Test Item Value Reference Range Interpretation [...] 34.0 g/dL 31.2-35 RDW-SD (test code = 46459-1) 45.9 fL 38.5-51.6 RDW-CV (test code = 788-0) 13.3 % 12.1-15.4 PLT (test code = 777-3) See_Comment [Automated messa ge] The system which generated this result transmitted reference range: 150 - 328 10*3/?L. The reference range was not used to interpret this result as normal/abnormal. MPV (test code = 32820-7) 8.4 fL 9.8-13 L NRBC/100 WBC (test code = 3725213752) See_Comment [Automated The X Train ssage] The system which generated this result transmitted reference range: 0.0 - 10.0 /100 WBCs. The reference range was not used to interpret this result as normal/abnormal. NRBC x10^3 (test code = 0186599549) See_Comment [Automated messa ge] The system which generated this result transmitted reference range: 10*3/?L. The reference range was not used to interpret this result as normal/abnormal. GRAN MAT (NEUT) % (test code = 770-8) 63.0 % IMM GRAN % (test code = 5583980167) 0.50 % LYMPH % (test code = 736-9) 25.2 % MONO % (test code = 5905-5) 9.8 % EOS % (test code = 713-8) 0.3 % BASO % (test code = 706-2) 1.2 % GRAN MAT x10^3(ANC) (test code = 3032453649) 3.73 10*3/uL 1.99-6.95 IMM GRAN x10^3 (test code = 1630495175) 0.03 10*3/uL 0-0.06 LYMPH x10^3 (test code = 731-0) 1.49 10*3/uL 1.09-3.23 MONO x10^3 (test code = 742-7) 0.58 10*3/uL 0.36-1.02 EOS x10^3 (test code = 711-2) 0.06-0.53 L BASO x10^3 (test code = 704-7) 0.07 10*3/uL 0.01-0.09 Lab Interpretation (test code = 64542-8) Abnormal [facility], Urinalysis Rflx Cult/Csrxa6722-33-54 13:53:00* Test Item Value Reference Range Interpretation Comme nts Color,Urine (test code = UCOL) Yellow Yellow Clarity,Urine (test code = UCLAR) Cloudy Clear A Ph, Urine (test code = UPH) 7.5 5.0-9.0 N Specific [place],Urine (test code = USG) 1.025 1.005-1.030 N [...] = ULEU) Negative mg/dL Negative UF REFLEXDrug Screen,Lutoq7967-86-76 13:53:00* Test Item Value Reference Range Interpretation [...] UPROP) Negative Negative Complete Blood Count Auto Tfoe6887-32-06 12:58:00* Test Item Value Reference Range Interpretation [...] = NRBCP) 0 % Coronavirus PCR, COVID19 Jseko6863-15-07 12:58:00* Test Item Value Reference Range Interpretation Comme nts Coronavirus PCR, COVID19 Rapid (test code = SARSCOV2) Coronavirus PCR, COVID19 Rapid (test code = SBXXMEX96.1) Reference Range: Negative SARS-CoV-2 PCR Result: (test code = SARS-CoV-2 PCR Result:) Negative by RT-PCR COVID-19 Status: AsymptomaticComprehensive Metabolic Niapo2713-26-84 12:58:00* Test Item Value Reference Range Interpretation [...] = ALP) 144 U/L 46-116 H Ethanol Eeicr6056-74-27 12:58:00* Test Item Value Reference Range Interpretation Comme nts Ethanol (test code = ETOH) < 3 mg/dL The pharmacologi yudy response to blood alcohol levels mayvary from individual to individual. The fatal concentrationhas been reported to be >400mg/dL. LJFYOJQ6302-33-55 01:47:56* Test Item Value Reference Range Interpretation Comme nts [place] [facility] (test code = 7116621845) 0.7 mmol/L 0.6-1.2 JUAN ALBERTO (test code = JUAN ALBERTO) Toxic Range: ? Greater than 1.2 mmol/L Lab Interpretation (test code = 71460-0) Normal [facility]anoTROP[facility] G3231-18-93 00:26:53* Test Item Value Reference Range Interpretation Comments TROPONIN I (test code = 3960479056) 0.002 ng/mL See_Comment [Automated message] The system [...] of biotin. Lab Interpretation (test code = 51406-0) Normal [facility]ETH[facility]OL2022-08-01 00:18:52 ALCOHOL<10mg/dL01/19/2022 7:18 PM [facility] Kitbndke03-274 Toxic>100 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 Fatalities ReportedB[facility] PlanoCOMP. METABOLIC PANEL (47778)2022-01-20 00:16:16* Test Item Value Reference Range Interpretation Comme nts NA (test code = 0941799021) 137 mmol/L 135-145 K (test code = 5139659180) 4.5 mmol/L 3.5-5 CL (test code = 9613768441) 103 mmol/L 98-108 CO2 TOTAL (test code = 1737997469) 26 mmol/L 23-31 AGAP (test code = 4379342177) 2-16 BUN (test code = 9226199785) 10 mg/dL 7-23 GLUCOSE (test code = 6352026638) 121 mg/dL 70-110 H CREATININE (test code = 7156613887) 0.65 mg/dL 0.6-1.25 TOTAL BILI (test code = 1852719669) 0.8 mg/dL 0.1-1.1 CALCIUM (test code = 4006882338) 11.4 mg/dL 8.6-10.6 H T PROTEIN (test code = 9908460048) 7.2 g/dL 6.3-8.2 ALBUMIN (test code = 0448950548) 4.6 g/dL 3.5-5 ALK PHOS (test code = 0176990544) 112 U/L 34-122 ALTv (test code = 1742-6) 19 U/L 5-50 AST(SGOT) (test code = 5800558773) 26 U/L 13-40 eGFR (test code = 3966242261) mL/min/1.73m2 JUAN ALBERTO (test code = JUAN [...] imaging tests). Lab Interpretation (test code = 84080-7) Abnormal [facility] WITH HBZJ8812-22-94 23:43:54* Test Item Value Reference Range Interpretation Comme nts WBC (test code = 6690-2) See_Comment [Automated messa ge] The system which generated this result transmitted reference range: 4.20 - 10.70 10*3/?L. The reference range was not used to interpret this result as normal/abnormal. RBC (test code = 789-8) See_Comment [Automated [employer] ge] The system which generated this result [...] 34.4 g/dL 31.2-35 RDW-SD (test code = 21108-1) 44.0 fL 38.5-51.6 RDW-CV (test code = 788-0) 12.6 % 12.1-15.4 PLT (test code = 777-3) See_Comment [Automated Multistata ge] The system which generated this result transmitted reference range: 150 - 328 10*3/?L. The reference range was not used to interpret this result as normal/abnormal. MPV (test code = 86665-4) 9.1 fL 9.8-13 L NRBC/100 WBC (test code = 6462515080) See_Comment [Automated The X Train ssage] The system which generated this result transmitted reference range: 0.0 - 10.0 /100 WBCs. The reference range was not used to interpret this result as normal/abnormal. NRBC x10^3 (test code = 5098901945) See_Comment [Automated Multistata ge] The system which generated this result transmitted reference range: 10*3/?L. The reference range was not used to interpret this result as normal/abnormal. GRAN MAT (NEUT) % (test code = 770-8) 69.8 % IMM GRAN % (test code = 3403143751) 0.40 % LYMPH % (test code = 736-9) 18.0 % MONO % (test code = 5905-5) 10.9 % EOS % (test code = 713-8) 0.1 % BASO % (test code = 706-2) 0.8 % GRAN MAT x10^3(ANC) (test code = 5603361762) 5.58 10*3/uL 1.99-6.95 IMM GRAN x10^3 (test code = 5510222190) 0.03 10*3/uL 0-0.06 LYMPH x10^3 (test code = 731-0) 1.44 10*3/uL 1.09-3.23 MONO x10^3 (test code = 742-7) 0.87 10*3/uL 0.36-1.02 EOS x10^3 (test code = 711-2) 0.06-0.53 L BASO x10^3 (test code = 704-7) 0.06 10*3/uL 0.01-0.09 Lab Interpretation (test code = 73998-5) Abnormal [facility] GLUCOSE (AUTOMATED)2022-01-19 22:27:41* Test Item Value Reference Range Interpretation Comme nts POCT GLU (test code = 0666549221) 123 mg/dL 70-110 H Lab Interpretation (test cod e = 14450-4) Abnormal [facility] GLUCOSE (AUTOMATED)2021-12-30 22:08:16* Test Item Value Reference Range Interpretation Comme nts POCT GLU (test code = 2567584879) 167 mg/dL 70-110 H Lab Interpretation (test cod e = 07596-2) Abnormal [facility] GLUCOSE (AUTOMATED)2021-12-30 16:50:40* Test Item Value Reference Range Interpretation Comme nts POCT GLU (test code = 6632147476) 154 mg/dL 70-110 H Lab Interpretation (test cod e = 05571-6) Abnormal [facility] GLUCOSE (AUTOMATED)2021-12-30 12:38:43* Test Item Value Reference Range Interpretation Comme nts POCT GLU (test code = 8315814151) 164 mg/dL 70-110 H Lab Interpretation (test cod e = 25566-7) Abnormal [facility] GLUCOSE (AUTOMATED)2021-12-30 02:14:58* Test Item Value Reference Range Interpretation Comme nts POCT GLU (test code = 0248068533) 220 mg/dL 70-110 H Lab Interpretation (test cod e = 07340-8) Abnormal [facility] GLUCOSE (AUTOMATED)2021-12-29 21:50:02* Test Item Value Reference Range Interpretation Comme nts POCT GLU (test code = 1502982701) 191 mg/dL 70-110 H Lab Interpretation (test cod e = 32192-5) Abnormal [facility] GLUCOSE (AUTOMATED)2021-12-29 20:15:01* Test Item Value Reference Range Interpretation Comme nts POCT GLU (test code = 6290648862) 163 mg/dL 70-110 H Lab Interpretation (test cod e = 47609-0) Abnormal [facility]anoTransthoracic echo (TTE)2021-12-29 19:12:22* Test Item Value Reference Range Interpretation Comme nts Height (test code = 0464422513) in Weight (test code = 9090931313) lbs Systolic BP (test code = 2948288876) mmHg Diastolic BP (test code = 0065513969) mmHg Heart Rate (test code = 4218181261) bpm BSA (test code = 5386695722) 1.62 m2 Ao root annulus (test code = 8956769621) 2.45 cm Ao root diam (test code = 0258845274) 2.45 cm Aortic root (test code = 5864852770) 2.45 cm ACS (test code = 8010706019) 1.66 cm LA size (test code = 0993062615) 3.2 cm LVOT diameter (test code = 0421387733) 1.95 cm LVIDD (test code = 8912771030) 3.60 cm IVS (test code = 8020682602) 0.94 cm Interventricular Septum Diastolic Thickness by 2D (test code = 9325259) 0.94 cm LVPWD (test code = 4562458855) 0.80 cm PW (test code = 5867108380) 0.80 cm 0.6-1.1 EF(Teich) (test code = 1315904166) 52.80 % LVIDS (test code = 4180161193) 2.60 cm FS (test code = 6126343781) 27 % EF - 2D (test code = 53518581) 52.80 % LAV(MOD-sp4) (test code = 0225821340) 16.80 mL MV Peak E Jovany (test code = 4233809584) 46.1 cm/s E wave decelartion time (test code = 0939780390) 0.31 s MV Peak A Jovany (test code = 5902311515) 58.1 cm/s E/A ratio (test code = 3250538890) ratio MV E/e' septal (test code = 5333355174) 5.7 cm/s Tapse (test code = 1309456139) 1.60 cm LVOT stroke volume (test code = 0846993909) 52.10 cm3 LVOT peak jovany (test code = 4421244656) 110.6 cm/s LVOT mn grad (test code = 2049343367) mmHg AV LVOT peak gradient (test code = 3529295526) mmHg LVOT peak VTI (test code = 4805843380) 17.4 cm LV V1 mean (test code = 5264217573) 66.10 cm/s Aortic valve mean velocity (test code = 4960290972) 73.0 cm/s Ao peak jovany (test code = 5417516978) 124.6 cm/s Ao VTI (test code = 1041599577) 18.6 cm AV area by cont VTI (test code = 1623638436) 2.8 cm2 AV area peak jovany (test code = 0783192914) 2.7 cm2 Ao max PG (test code = 7919102521) 6.20 mm[Hg] AV peak gradient (test code = 5122973926) mmHg AV valve area (test code = 7528149730) 2.80 cm2 AV mean gradient (test code = 9694117851) mmHg Radiology Study observation (narrative) (test code = 40419-4) JUAN ALBERTO (test code = JUAN ALBERTO) [...] mL of Lumason ultrasound enhancing agent used. [facility] (AUTOMATED)2021-12-29 12:50:31* Test Item Value Reference Range Interpretation Comme nts POCT GLU (test code = 6293235857) 141 mg/dL 70-110 H Lab Interpretation (test cod e = 50076-9) [facility]normal [facility]roponin [id number] 10:38:31* Test Item Value Reference Range Interpretation Comments TROPONIN I (test code = 0945078227) 0.003 ng/mL See_Comment [Automated message] The system [...] of biotin. Lab Interpretation (test code = 08593-3) Normal [facility]anoLIPID PANEL (82846)(TOTAL CHOLESTEROL, TRIGLYCERIDES, HDL)2021-12-29 05:56:47* Test Item Value Reference Range Interpretation Comme nts CHOL (test code = 6483819253) 168 mg/dL 120-200 HDL (test code = 8774847722) 102 mg/dL See_Comment [Automated Multistata ge] The system which generated this result transmitted reference range: >=40. The reference range was not used to interpret this result as normal/abnormal. HDLC RATIO (test code = 9389038507) See_Comment [Automated Multistata ge] The system which generated this result transmitted reference range: <=5.0. The reference range was not used to interpret this result as normal/abnormal. TRIG (test code = 9261610219) 55 mg/dL 30-170 LDL CHOL (test code = 97982-2) 55 mg/dL See_Comment [Automated Multistata ge] The system which generated this result transmitted reference range: <=160. The reference range was not used to interpret this result as normal/abnormal. VLDL (test code = 7245568593) 11 mg/dL 5-60 Lab Interpretation (test code = 02418-2) [facility]yroid Stimulating Hormone (TSH)2021-12-29 05:40:29* Test Item Value Reference Range Interpretation Comme nts TSH (test code = 0037631505) See_Comment Biotin has been reported to cause a negative bias, interpret results relative to patient's use of biotin. [Automated message] The system which generated this result transmitted reference range: 0.45 - 4.70 mIU/L. The reference range was not used to interpret this result as normal/abnormal. Lab Interpretation (test code = 48699-5) Normal [facility]roponin [id number] 05:34:29* Test Item Value Reference Range Interpretation Comments TROPONIN I (test code = 1411678091) 0.006 ng/mL See_Comment [Automated message] The system [...] of biotin. Lab Interpretation (test code = 43922-2) Normal [facility]ETHANOL2022-07-10 04:43:01 ALCOHOL<10mg/dL12/28/2021 11:43 PM [facility]ATORYToxic Greater than or equal to 80 mg/dL. NOTE: Whole blood values are approximately 10% to 15% lower than serum and plasma.[facility] Glycosylated Hemoglobin (A1C)2021-12-29 01:51:44* Test Item Value Reference Range Interpretation Comme nts HGB A1C (test code = 4548-4) 6.5 % 4-5.7 H JUAN ALBERTO (test code = JUAN ALBERTO) Reference RangesNormal: <5.7%Prediabetes: 5.7 - 6.4%Diabetes: > 6.5% Lab Interpretation (test code = 22680-7) Abnormal [facility]anoTROPONIN [id number] 21:26:50* Test Item Value Reference Range Interpretation Comments TROPONIN I (test code = 9712725320) 0.002 ng/mL See_Comment [Automated message] The system [...] of biotin. Lab Interpretation (test code = 60618-7) Normal [facility]anoN-TERMINAL [id number] 21:23:29* Test Item Value Reference Range Interpretation Comme nts NT-proBNP (test code = 9949712402) 41 pg/mL See_Comment [Automated message] The system which generated this result transmitted reference range: <=125. The reference range was not used to interpret this result as normal/abnormal. JUAN LABERTO (test code = JUAN ALBERTO) Biotin has been reported to cause a negative bias, interpret results relative to patient's use of biotin. Lab Interpretation (test code = 45008-7) Normal [facility]anoAMMONIA, [id number] 21:20:38* Test Item Value Reference Range Interpretation Comme nts AMMONIA (test code = 2536049577) 9-33 L Slight hemolysis Lab Interpretation (test code = 39234-8) Abnormal [facility]anoCOMP. METABOLIC PANEL (31872)2021-12-28 21:08:48* Test Item Value Reference Range Interpretation Comme nts NA (test code = 6146165258) 137 mmol/L 135-145 K (test code = 2067647165) 4.5 mmol/L 3.5-5 CL (test code = 8211276431) 97 mmol/L 98-108 L CO2 TOTAL (test code = 0416396519) 29 mmol/L 23-31 AGAP (test code = 2887992872) 2-16 BUN (test code = 9704187184) 10 mg/dL 7-23 GLUCOSE (test code = 9707543712) 188 mg/dL 70-110 H CREATININE (test code = 8399036737) 0.58 mg/dL 0.6-1.25 L TOTAL BILI (test code = 9097839861) 0.8 mg/dL 0.1-1.1 CALCIUM (test code = 2658178539) 10.5 mg/dL 8.6-10.6 T PROTEIN (test code = 4119136563) 7.6 g/dL 6.3-8.2 ALBUMIN (test code = 1729565993) 4.5 g/dL 3.5-5 ALK PHOS (test code = 3621322824) 107 U/L 34-122 ALTv (test code = 1742-6) 66 U/L 5-50 H AST(SGOT) (test code = 2258285909) 96 U/L 13-40 H eGFR (test code = 7339712323) mL/min/1.73m2 JUAN ALBERTO (test code = JUAN [...] imaging tests). Lab Interpretation (test code = 10798-5) Abnormal [facility]anoPROTHROMBIN TIME / [id number] 21:01:25* Test Item Value Reference Range Interpretation Comme jaelyn LUCIO PATIENT (test code = 5964-2) See_Comment [Automated Colondee] The system which generated this result transmitted reference range: 12.0 - 14.7 Seconds. The reference range was not used to interpret this result as normal/abnormal. INR (test code = 6301-6) Normal INR <1.1; Warfarin Therapeutic range 2.0 to 3.0 or 2.5 to 3.5, depending upon the indications. Lab Interpretation (test code = 95820-5) Normal [facility] WITH [id number] 20:54:03* Test Item Value Reference Range Interpretation [...] 34.2 g/dL 31.2-35 RDW-SD (test code = 86578-7) 47.8 fL 38.5-51.6 RDW-CV (test code = 788-0) 13.3 % 12.1-15.4 PLT (test code = 777-3) See_Comment [Automated messa ge] The system which generated this result transmitted reference range: 150 - 328 10*3/?L. The reference range was not used to interpret this result as normal/abnormal. MPV (test code = 81680-4) 8.6 fL 9.8-13 L NRBC/100 WBC (test code = 2049928094) See_Comment [Automated me ssage] The system which generated this result transmitted reference range: 0.0 - 10.0 /100 WBCs. The reference range was not used to interpret this result as normal/abnormal. NRBC x10^3 (test code = 1949652126) See_Comment [Automated messa ge] The system which generated this result transmitted reference range: 10*3/?L. The reference range was not used to interpret this result as normal/abnormal. GRAN MAT (NEUT) % (test code = 770-8) 64.1 % IMM GRAN % (test code = 1421419725) 0.40 % LYMPH % (test code = 736-9) 16.6 % MONO % (test code = 5905-5) 17.2 % EOS % (test code = 713-8) 0.2 % BASO % (test code = 706-2) 1.5 % GRAN MAT x10^3(ANC) (test code = 6120850887) 3.47 10*3/uL 1.99-6.95 IMM GRAN x10^3 (test code = 5109546852) 0-0.06 LYMPH x10^3 (test code = 731-0) 0.90 10*3/uL 1.09-3.23 L MONO x10^3 (test code = 742-7) 0.93 10*3/uL 0.36-1.02 EOS x10^3 (test code = 711-2) 0.06-0.53 L BASO x10^3 (test code = 704-7) 0.08 10*3/uL 0.01-0.09 Lab Interpretation (test code = 58620-5) Abnormal [facility]anoEthanol [id number] 21:08:00* Test Item Value Reference Range Interpretation Comme nts Ethanol (test code = ETOH) < 3 mg/dL The pharmacologi yudy response to blood alcohol levels mayvary from individual to individual. The fatal concentrationhas been reported to be >400mg/dL. Complete Blood Count Auto [id number] 17:33:00* Test Item Value Reference Range Interpretation [...] = NRBCP) 0 % UA, Urinalysis Rflx Cult/[id number] 17:33:00* Test Item Value Reference Range Interpretation Comme nts Color,Urine (test code = UCOL) Dark Yellow Yellow A Clarity,Urine (test code = UCLAR) Clear Clear Ph, Urine (test code = UPH) 6.5 5.0-9.0 N Specific [place],Urine (test code = USG) 1.015 1.005-1.030 N [...] = ULEU) Trace mg/dL Negative A Urine [id number] 17:33:00* Test Item Value Reference Range Interpretation Comme nts RBC,Urine (test code = URBCUF) None Seen /HPF 0-2 WBC,Urine (test code = UWBCUF) 0-5 /HPF 0-5 Epithelial Cell,Urine (test code = UECUF) 0-5 /HPF 0-5 Casts,Urine (test code = UCASTUF) None Seen /LPF None Seen Bacteria,Urine (test code = UBACTUF) None Seen /hpf None Seen Drug Screen,[id number] 17:33:00* Test Item Value Reference Range Interpretation [...] code = UPROP) Negative Negative Comprehensive Metabolic [id number] 17:33:00* Test Item Value Reference Range Interpretation [...] 101 U/L 46-116 N Sars-CoV-2/FLU A/B RSV [id number] 17:31:00* Test Item Value Reference Range Interpretation [...] SARS-CoV-2 PCR Result:) Negative by RT-PCR Drug Screen,[id number] 17:20:00* Test Item Value Reference Range Interpretation [...] UPROP) Negative Negative Complete Blood Count Auto [id number] 17:14:00* Test Item Value Reference Range Interpretation [...] code = NRBCP) 0 % Comprehensive Metabolic [id number] 17:14:00* Test Item Value Reference Range Interpretation [...] = ALP) 207 U/L 46-116 H Ethanol [id number] 17:14:00* Test Item Value Reference Range Interpretation Comme nts Ethanol (test code = ETOH) 192 mg/dL Complete Blood Count Auto [id number] 20:20:00* Test Item Value Reference Range Interpretation [...] code = NRBCP) 0 % Comprehensive Metabolic [id number] 20:20:00* Test Item Value Reference Range Interpretation [...] = ALP) 189 U/L 46-116 H Ethanol [id number] 20:20:00* Test Item Value Reference Range Interpretation Comme nts Ethanol (test code = ETOH) 10 mg/dL Sars-CoV-2/FLU A/B RSV [id number] 20:20:00* Test Item Value Reference Range Interpretation [...] Negative by Nucleic Acid Amplification UA, Urinalysis [id number] 20:20:00* Test Item Value Reference Range Interpretation Comme nts Color,Urine (test code = UCOL) Yellow Y Clarity,Urine (test code = UCLAR) Clear Clear PH,Urine (test code = UPH.XX) 7.0 5.5-8.5 Specific [place],Urine (test code = USG) 1.020 1.005-1.030 N [...] code = ULEU) Negative cells/uL Negative Drug Screen,[id number] 20:20:00* Test Item Value Reference Range Interpretation [...] RESULT TO FO LLOW CT head/brain wo [facility] [address] [place] [address] Patient Name: Walt Velazquez Medical Record#: [id number] Address: Homeless City/State/Zip: [place] [address]: Vinnie Navarro MD Phone: Insurance: Self Pay /Age/Sex: 1970/50/M Admit/Reg Date: 09/17/[address]: Vinnie Navarro MD [facility]: [facility]/ PCP: PcpMd KERWIN Jimenez Date of Service: 09/17/21 Order (s): CT head/brain wo con CPT Code: 43368 Report Number: [id number] Reason for Exam: Altered mental status Location [...]
--- NOTE | 2023-09-25 15:43 | ER ---
Nurse's Notes [facility] Name: Walt Velazquez Age: 52 yrs Sex: Male : 1970 Arrival Date: 09/25/2023 Time: 15:05 Bed 19 Private MD: Diagnosis: Dehydration;Alcohol use, unspecified Presentation: 09/24 15:08 Chief complaint: EMS states: patient found on ground at [address] smelling of ETOH and cp4 disoriented. Coronavirus screen: Client denies travel out of the [place] in the last 14 days. At this time, the client does not indicate any symptoms associated with coronavirus-19. Ebola Screen: Patient negative for fever greater than or equal to 101.5 degrees Fahrenheit, and additional compatible Ebola Virus Disease symptoms Patient denies exposure to infectious person. Patient denies travel to an Ebola-affected area in the 21 days before illness onset. No symptoms or risks identified at this time. Initial Sepsis Screen: Does the patient meet any 2 criteria? No. Patient's initial sepsis screen is negative. Does the patient have a suspected source of infection? No. Patient's initial sepsis screen is negative. Risk Assessment: Do you want to hurt yourself or someone else? Patient reports no desire to harm self or others. Onset of symptoms was September 25, 2023. 15:08 Method Of Arrival: [facility] 15:08 Acuity: LATASHA 3 cp4 Triage Assessment: 15:10 General: Appears unkempt, Behavior is restless. Pain: Denies pain. cp4 Historical: - Allergies: 15:10 Trazodone; cp4 - PMHx: 15:10 Alcoholism; Bipolar II; Hypertensive disorder; Parkinsons; Seizure; cp4 - Immunization history:: Adult Immunizations up to date. - Infectious Disease History:: Denies. CDIFF, C. Auris, ESBL, MRSA (w/in 1 year), VRE (w/in 1 year), TB, . - Social history:: Smoking status: unknown. - Family history:: not pertinent. - Hospitalizations: : No recent hospitalization is reported. Screenin:24 [facility] ED Fall Risk Assessment (Adult) History of falling in the last 3 months, cp4 including since admission No falls in past 3 months (0 pts) Confusion or Disorientation No (0 pts) Intoxicated or Sedated Yes (3 pts) Impaired Gait No (0 pts) Mobility Assist Device Used No (0 pt) Altered Elimination No (0 pt) Score/Fall Risk Level 3 or more points = High Risk Oriented to surroundings, Maintained a safe environment, Assessed \\T\\ reinforced patient's understanding of fall precautions, Hourly rounding (assess needs \\T\\ fall precautionary measures) done, Used ambulatory aids as needed (educated on \\T\\ assisted with). Abuse screen: Denies threats or abuse. Nutritional screening: No deficits noted. Tuberculosis screening: No symptoms or risk factors identified. Assessment: 15:24 Reassessment: No changes from previously documented assessment. cp4 Psych: 15:55 [place] Suicide Severity Screening: In the past month, have you wished you were cp4 or wished you could go to sleep and not wake up? Patient responds "No." "In the past month, have you actually had any thoughts of killing yourself?" Patient responds "no." "In your lifetime, have you ever done anything, started to do anything, or prepared to do anything to end your life?" Patient responds "no.". Subjective: Patient's mood is Happy, laughing. Subjective: Delusions are denied, Hallucinations are denied. Objective: Patient is cooperative. Objective: Speech is slurred. Interventions: Patient placed in hospital gown. Patient uses hourly. Vital Signs: 15:13 BP 125 / 83; Pulse 97; Resp 18; Temp 98; Pulse Ox 96% ; cp4 ED Course: 15:07 Patient arrived in ED. cp4 15:08 Fidelia Saldivar is Primary Nurse. cp4 15:10 Triage completed. cp4 15:10 Arm band placed on left wrist. Patient placed in an exam room, on a stretcher. cp4 15:12 Kaiser Marie MD is Attending Physician. rn 15:24 Bed in low position. Call light in reach. Side rails up X2. Provided Education on: ETOH.cp4 15:24 No provider procedures requiring assistance completed. Maintain EMS IV. Dressing cp4 intact. Good blood return noted. Site clean \\T\\ dry. Gauge \\T\\ site: 20G LAC. intact, bleeding controlled, No redness/swelling at site. Pressure dressing applied, Patient removed IV. Administered Medications: No medications were administered Medication: 15:24 VIS not applicable for this client. cp4 Outcome: 15:43 Discharge ordered by . rn 15:55 Discharged to home ambulatory, cp4 15:55 Condition: stable 15:55 Discharge instructions given to patient, Instructed on discharge instructions, follow up and referral plans. Demonstrated understanding of instructions, follow-up care, 15:58 Patient left the ED. cp4 Signatures: Kaiser Marie MD MD rn Potter, Christina cp4
--- NOTE | 2023-09-25 15:43 | EDPHYS ---
Physician Documentation [facility] Name: Walt Velazquez Age: 52 yrs Sex: Male : 1970 Arrival Date: 09/25/2023 Time: 15:05 Bed 19 Private MD: ED Physician Kaiser Marie HPI: 09/24 15:40 This 52 yrs old Male presents to ER via EMS with complaints of ETOH Abuse. rn 15:40 Patient recently seen here and discharged. Left ear, reports continued to drink and rn fell asleep in grass out in the open. Bystanders called 911 and EMS brought back in. Patient denies any pain or injury. States he is homeless and enjoys drinking. Patient reports "drinks like a fish". Patient states he drinks all day long and plans on drinking more is once discharged here. Is also refusing any further care again.. Onset: The symptoms/episode began/occurred at an unknown time. Severity of symptoms: At their worst the symptoms were mild in the emergency department the symptoms are unchanged. The patient has not experienced similar symptoms in the past. Historical: - Allergies: 15:10 Trazodone; cp4 - PMHx: 15:10 Alcoholism; Bipolar II; Hypertensive disorder; Parkinsons; Seizure; cp4 - Immunization history:: Adult Immunizations up to date. - Infectious Disease History:: Denies. CDIFF, C. Auris, ESBL, MRSA (w/in 1 year), VRE (w/in 1 year), TB, . - Social history:: Smoking status: unknown. - Family history:: not pertinent. - Hospitalizations: : No recent hospitalization is reported. ROS: 15:40 Constitutional: Negative for fever, chills, and weight loss, Cardiovascular: Negative rn for chest pain, palpitations, and edema, Respiratory: Negative for shortness of breath, cough, wheezing, and pleuritic chest pain, Abdomen/GI: Negative for abdominal pain, nausea, vomiting, diarrhea, and constipation, MS/Extremity: Negative for injury and deformity, Skin: Negative for injury, rash, and discoloration, Neuro: Negative for headache, weakness, numbness, tingling, and seizure, Exam: 15:40 Constitutional: Disheveled male, smells of alcohol Head/Face: Normocephalic, rn atraumatic. Neck: No midline cervical tenderness Cardiovascular: Regular rate and rhythm. No pulse deficits. Respiratory: No increased work of breathing, no retractions or nasal flaring. Abdomen/GI: Soft, non-tender MS/ Extremity: Pulses equal, no cyanosis. Neurovascular intact. Full, normal range of motion. Equal circumference. Neuro: Awake and alert, GCS 15, oriented to person, place, time, and situation. Cranial nerves II-XII grossly intact. Motor strength 5/5 in all extremities. Sensory grossly intact. Cerebellar exam normal. Normal gait. Vital Signs: 15:13 BP 125 / 83; Pulse 97; Resp 18; Temp 98; Pulse Ox 96% ; cp4 MDM: 15:12 Patient medically screened. rn 15:42 Differential Diagnosis Alcoholism, dehydration. Data reviewed: vital signs, nurses rn notes, and as a result, I will discharge patient. Counseling: I had a detailed discussion with the patient and/or guardian regarding the historical points, exam findings, and any diagnostic results supporting the discharge/admit diagnosis. Refusal of service: The patient/guardian displays adequate decision making capability and despite a detailed discussion of alternatives, benefits, risks, and consequences refuses: CT Scan, all lab tests, Medications, all X-rays. ED course: Patient once again refuses any intervention. Given 1 L of NS by EMS. Patient pulled out his IV and walked out of the emergency room on his own power. Understands risks of leaving without further investigation.. Administered Medications: No medications were administered Disposition Summary: 09/25/23 15:43 Discharge Ordered Notes: Location: Home rn Problem: new rn Symptoms: have improved rn Condition: Stable rn Diagnosis - Dehydration rn - Alcohol use, unspecified rn Followup: rn - With: Private Physician - When: As needed - Reason: Recheck today's complaints, Re-evaluation by your physician Discharge Instructions: - Discharge Summary Sheet rn - Dehydration, Adult rn Forms: - Medication Reconciliation Form rn - Thank You Letter rn - Antibiotic journalism instructor - Prescription Opioid Use rn - Patient Portal Instructions rn - Leadership Thank You Letter rn Signatures: Kaiser Marie MD MD rn Potter, Christina cp4 Corrections: (The following items were deleted from the chart) 15:41 15:40 Constitutional: Negative for fever, chills, and weight loss, Cardiovascular: rn Negative for chest pain, palpitations, and edema, Respiratory: Negative for shortness of breath, cough, wheezing, and pleuritic chest pain, Abdomen/GI: Negative for abdominal pain, nausea, vomiting, diarrhea, and constipation, MS/Extremity: Negative for injury and deformity, Skin: Negative for injury, rash, and discoloration, Neuro: Negative for headache, weakness, numbness, tingling, and seizure, rn 15:42 15:40 Constitutional: This is a well developed, well nourished patient who is awake, rn alert, and in no acute distress. Head/Face: Normocephalic, atraumatic. Neck: No midline cervical tenderness Cardiovascular: Regular rate and rhythm. No pulse deficits. Respiratory: No increased work of breathing, no retractions or nasal flaring. Abdomen/GI: Soft, non-tender MS/ Extremity: Pulses equal, no cyanosis. Neurovascular intact. Full, normal range of motion. Equal circumference. Neuro: Awake and alert, GCS 15, oriented to person, place, time, and situation. Cranial nerves II-XII grossly intact. Motor strength 5/5 in all extremities. Sensory grossly intact. Cerebellar exam normal. Normal gait. rn
[2023-09-25 17:12] VITALS: BP 125/83; TEMP 98; O2SAT 96
== END 2023-09-25 15:58 | disposition home or self-care (01) ==
LOC: ER 15:05
DX: E86.0 Dehydration (principal); F10.20 Alcohol dependence, uncomplicated
CPT/HCPCS: 99283

== ENCOUNTER 2023-09-27 15:47 | Emergency (ER) | payer SELFPAY ==
--- OUTSIDE RECORDS SUMMARY | 2023-09-27 15:52 | XMS REPORT | Continuity of Care Document ---
Author Name Unknown Address [address] [facility]. [address] [place] [address] [facility] Address [address] [facility] [place] [address] Care Team Providers Care Paper Processing Machine Helper Name Role Phone Pcp-None Primary Care Physician Unavailab HEMANT Adame Attending Clinician Unavailable Hemant Klein MD Attending Clinician [phone] Pan Pinto Attending Clinician Unavailab JESSICA Gallardo Attending Clinician Unavailable Rayray Driscoll MD Attending Clinician [phone] Jessica Prado MD Attending Clinician [phone] Oswald Murphy MD Attending Clinician [phone] DIYA CHOWDHURY Attending Clinician Unavailab Diya Mackey DO Attending Clinician [phone] Fidel Cuellar Attending Clinician Unavailable DIRK YARBROUGH Attending Clinician Unavailable Leticia Rowland Attending Clinician [phone] Dirk Yarbrough MD Attending Clinician [phone] Faye Portillo LVN Attending Clinician [phone] Pia Reddy Attending Clinician [phone] Vinnie Navarro Attending Clinician Unavailable OSWALD MURPHY Admitting Clinician Unavailable Oswald Murphy MD Admitting Clinician DIYA CHOWDHURY Admitting Clinician UnavailLeticia Gaytan Admitting Clinician Unavailable JESSICA PRADO Admitting Clinician Unavailable Jessica Prado MD Admitting Clinician [phone] Payers Payer Name Policy Type Policy Number Effective Date Expirati on Date Source [facility] [id number] 2022 00:00:00 Problems Condition Name Condition Details Condition Category Status Onset Date Resolution Date Last Treatment Date Treating Clinician Comments Source Alcohol withdrawal syndrome with complicati on Alcohol withdrawal syndrome with complicati on Disease Active 08-10 00:00: 00 [facility] Type 2 diabetes mellitus with other specified complicati on Type 2 diabetes mellitus with other specified complicati on Disease Active 12-29 00:00: 00 [facility] Dyslipidem ia Dyslipidem ia Disease Active 12-29 00:00: 00 [facility] Chest pain, unspecifie d type Chest pain, unspecifie d type Disease Active 12-28 00:00: 00 [facility] Priapism Priapism Disease Active 2013-06 1-06 00:00: 00 [facility] Allergies, Adverse Reactions, Alerts Allergy Name Allergy Type Status Severity Reaction(s) Onset Date Inactive Date Treating Clinician Comments Source No Known Drug Allergie s DA Active U 4-25 00:00: 00 [facility] No Known Drug Allergie s DA Active U 0 9-16 00:00: 00 [facility] No Known Drug Allergie s DA Active U 0 3-29 00:00: 00 [facility] No Known Drug Allergie s DA Active U 2019-06 2-16 00:00: 00 [facility] No Known Drug Allergie s DA Active U 2019-06 2-15 00:00: 00 [facility] No Known Drug Allergie s DA Active U 2019-06 2-02 00:00: 00 [facility] Trazodon e Propensi ty to adverse reaction s Active Other - See comments 10-06 00:00: 00 [facility] TRAZODON E DRUG INGREDI Active Other-Cmnt 10-06 00:00: 00 [facility] Social History Social Habit Start Date Stop Date Quantity Comments Source History of tobacco use Cigarette Smoker [facility] Exposure to SARS-CoV-2 (event) 2022-11-01 00:00:00 2022-11-11 13:57:00 Not sure [facility] Tobacco use and exposure 2022-08-10 00:00:00 2022-08-10 00:00:00 User of smokeless tobacco [facility] Alcohol intake 2022-08-10 00:00:00 2022-08-10 00:00:00 Current drinker of alcohol (finding) [facility] Tobacco Comment 2022-08-10 00:00:00 2022-08-10 00:00:00 1/2 a pack a day [facility] Sex Ass[birth year] At 1970 00:00:00 1970 00:00:00 [facility] Smoking Status Start Date Stop Date Source Smokes tobacco daily 2022-08-10 00:00:00 [facility] Medications Ordered Medication Name Filled Medication Name Start Date Stop Date Current Medication? Ordering Clinician Indication Dosage Frequency Signature (SIG) Comments Components Source NaCl 0.9% (NS) bolus infusion 1,000 mL 11-11 19:45: 00 11-11 20:23 :00 No 1000mL at 999 mL/hr, 1,000 mL, IV Piggyback, ONCE, 1 dose, On Thu11/11/22 at 1445, STAT [facility] multivitami n tablet 1 tablet 08-12 15:00: 00 Yes 1{tbl} 1 tablet, Oral, DAILY, First dose on Thu08/12/22 at 0900, Until Discontinu ed, Routine [facility] foLIC acid (FOLATE) tablet 1 mg 08-12 15:00: 00 Yes 1mg 1 mg, Oral, DAILY, First dose on Thu08/12/22 at 0900, Until Discontinu ed, Routine [facility] foLIC acid 1 mg tablet 08-12 00:00: 00 09-12 04:59 :00 No [id number] 1mg Take 1 tablet by mouth in the morning for 30 days. [facility] oxazepam (SERAX) capsule 15 mg 08-11 [...] Thu08/13/22 at 0600, Routine [Order 2 End] [facility] thiamine (VITAMIN B1) tablet 100 mg 08-11 16:15: 00 Yes 100mg 100 mg, Oral, DAILY, First dose on Thu08/11/22 at 1015, Until Discontinu ed, Routine [facility] enoxaparin (LOVENOX) injection 40 mg 08-10 23:00: 00 Yes 40mg 40 mg, Subcutaneo us, DAILY, First dose on Thu08/10/22 at 1700, Until Discontinu ed, Routine [facility] NaCl 0.9% (NS) IV infusion 1,000 mL 08-10 15:00: 00 Yes 1000mL at 125 mL/hr, IV Infusion, CONTINUOUS , Starting on Thu08/10/22 at 0900, Until Discontinu ed, Routine [facility] foLIC acid (FOLATE) 5 mg in NaCl 0.9% (NS) piggyback 08-10 15:00: 00 08-11 16:14 :47 No 5mg IV Piggyback, DAILY, First dose on Thu08/10/22 at 0900, Until Discontinu ed, 50 mL [facility] thiamine (VITAMIN B1) 100 mg in NaCl 0.9% (NS) piggyback 08-10 15:00: 00 08-10 16:08 :00 No 100mg IV Piggyback, DAILY, 1 dose, First dose on Thu08/10/22 at 0900, 50 mL [facility] LORazepam (ATIVAN) injection 2 mg 08-10 14:52: 57 Yes 2mg 2 mg, Slow IV Push, Q4HPRN, Starting on 08/10/22 at 0852, Until Discontinu ed, Routine, Seizures, Agitation, Anxiety [facility] Sliding Scale Insulin-Reg ular + Fsbg Testing 08-10 13:30: 00 Yes Subcutaneo us, AC+HS, First dose on Thu08/10/22 at 0730, Until Discontinu ed, Routine [facility] oxazepam (SERAX) capsule 15 mg 08-10 12:08: 05 Yes 15mg 15 mg, Oral, Q4HPRN, Starting on 08/10/22 at 0608, Until Discontinu ed, Routine, Only while awake for DBP equal to or greater than 100, HR equal to or greater than 100. [facility] dextrose 10% (D10W) bolus infusion 250 [...] unable to swallow or has mental changes. [facility] ondansetron (ZOFRAN (PF)) injection 4 mg 08-10 12:02: 53 Yes 4mg 4 mg, Slow IV Push, Q6HPRN, Starting on Thu08/10/22 at 0602, Until Discontinu ed, Routine, Nausea and Vomiting (N/V) [facility] ibuprofen (MOTRIN IB) tablet 200 mg 08-10 12:02: 45 Yes 200mg 200 mg, Oral, Q6HPRN, Starting on Thu08/10/22 at 0602, Until Discontinu ed, Routine, Pain (scale 1-3) [facility] NaCl 0.9% (NS) bolus infusion 1,000 mL 08-10 10:15: 00 08-10 13:00 :00 No 1000mL at 999 mL/hr, 1,000 mL, IV Infusion, ONCE, 1 dose, On Thu08/10/22 at 0415, STAT [facility] LORazepam (ATIVAN) injection 0.5 mg 08-10 09:15: 00 08-10 09:19 :00 No .5mg 0.5 mg, Slow IV Push, ONCE, 1 dose, On Thu08/10/22 at 0315, STAT [facility] LORazepam (ATIVAN) injection 1 mg 08-10 08:00: 00 08-10 07:05 :00 No 1mg 1 mg, Slow IV Push, ONCE NOW, 1 dose, On Thu08/10/22 at 0200, STAT [facility] thiamine (VITAMIN B1) injection 100 mg 08-10 06:45: 00 08-10 06:52 :00 No 100mg 100 mg, Intravenou s, ONCE, 1 dose, On 08/10/22 at 0045, JACIEL [facility] LORazepam (ATIVAN) injection 1 mg 08-10 05:15: 00 08-10 05:22 :00 No 1mg 1 mg, Slow IV Push, ONCE, 1 dose, On 08/09/22 at 2315, STAT [facility] ketorolac (TORADOL) injection 15 mg 2021-06 16:00: 00 04-06 14:50 :00 No 15mg 15 mg, Slow IV Push, ONCE, 1 dose, On 04/06/22 at 1100, [facility] ondansetron (ZOFRAN (PF)) injection 4 mg 2021-06 15:45: 00 04-06 14:50 :00 No 4mg 4 mg, Slow IV Push, ONCE, 1 dose, On 04/06/22 at 1045, [facility] oxazepam (SERAX) capsule 15 mg 12-31 06:28: 17 01-01 06:29 :00 No 15mg 15 mg, Oral, Q12H TAPER, 2 doses, First dose on Thu12/31/21 at 0130, Last dose on Thu12/31/21 at 1330, Routine [facility] multivitami n tablet 12-31 00:00: 00 Yes [id number] 1{tbl} Take 1 tablet by mouth in the morning. [facility] thiamine 100 mg tablet 12-31 00:00: 00 Yes [id number] 100mg Take 1 tablet by mouth in the morning. [facility] aspirin 81 mg chewable tablet 12-31 00:00: 00 Yes [id number] 81mg Take 1 tablet by mouth in the morning. [facility] foLIC acid 1 mg tablet 12-31 00:00: 00 01-31 04:59 :00 No [id number] 1mg Take 1 tablet by mouth in the morning for 30 days. [facility] metFORMIN 500 mg tablet 12-30 00:00: 00 Yes [id number] 500mg Take 1 tablet by mouth in the morning and 1 tablet in the evening. Take with meals. [facility] aspirin chewable tablet 81 mg 12-29 14:00: 00 Yes 81mg 81 mg, Oral, DAILY, First dose on 12/29/21 at 0900, Until Discontinu ed, Routine [facility] sulfur hexafluorid e microsphr (LUMASON) injection 5 mL 12-29 13:45: 00 12-29 13:45 :00 No [id number] 5mL 5 mL, Intravenou s, ONCE, 1 dose, On 12/29/21 at 0845, Routine
[employer] team member approving Restricted medication : STEFANIE GORMAN [facility] enoxaparin (LOVENOX) injection 40 mg 12-29 13:00: 00 Yes 40mg 40 mg, Subcutaneo us, Q24H, First dose on 12/29/21 at 0800, Until Discontinu ed, Routine [facility] Sliding Scale Insulin - Lispro (HumaLOG) + Fsbg Testing 12-29 13:00: 00 Yes Subcutaneo us, TID MEALS+HS, First dose on 12/29/21 at 0800, Until Discontinu ed, Routine [facility] diazePAM (VALIUM) injection 10 mg 12-29 05:30: 00 12-29 04:40 :00 No 10mg 10 mg, Intravenou s, ONCE, 1 dose, On 12/29/21 at 0030, Routine [facility] diazePAM (VALIUM) injection 10 mg 12-29 04:15: 00 12-29 03:17 :00 No 10mg 10 mg, Intravenou s, ONCE, 1 dose, On 12/28/21 at 2315, Routine [facility] diazePAM (VALIUM) injection 5 mg 12-29 03:45: 01 Yes 5mg 5 mg, Intravenou s, QIDPRN, Starting on 12/28/21 at 2245, Until Discontinu ed, Routine, Seizures, Agitation [facility] foLIC acid (FOLATE) tablet 1 mg 12-29 03:45: 00 Yes 1mg 1 mg, Oral, DAILY, First dose on 12/28/21 at 2245, Until Discontinu ed, Routine [facility] thiamine (VITAMIN B1) tablet 100 mg 12-29 03:45: 00 Yes 100mg 100 mg, Oral, DAILY, First dose (after last modificati on) on 12/28/21 at 2245, Until Discontinu ed, Routine [facility] glucagon (GLUCAGEN DIAGNOSTIC KIT) injection 1 mg 12-29 03:42: 19 Yes 1mg 1 mg, Intramuscu lar, PRN, Starting on 12/28/21 at 2242, Until Discontinu ed, JACIEL, Blood Glucose < or = 70 mg/dL and patient is unable to swallow or has mental changes. [facility] dextrose 10% (D10W) bolus infusion 250 [...] blood glucose is < 80 mg/dL, repeat.
[facility] LORazepam (ATIVAN) injection 1 mg 12-29 03:30: 00 12-29 02:32 :00 No 1mg 1 mg, Intravenou s, ONCE, 1 dose, On 12/28/21 at 2230, Routine
Is the medication being used for status epilepticu s? No [facility] oxazepam (SERAX) capsule 15 mg 12-29 00:28: 20 Yes 15mg 15 mg, Oral, Q4HPRN, Starting on 12/28/21 at 1928, Until Discontinu ed, Routine, Only while awake for DBP equal to or greater than 100, HR equal to or greater than 100. [facility] ondansetron (ZOFRAN (PF)) injection 4 mg 12-29 00:23: 47 Yes 4mg 4 mg, Slow IV Push, Q6HPRN, Starting on 12/28/21 at 1923, Until Discontinu ed, Routine, Nausea and Vomiting (N/V) [facility] acetaminoph en (TYLENOL) tablet 650 mg 12-29 00:23: 37 Yes 650mg 650 mg, Oral, Q6HPRN, Starting on 12/28/21 at 192, Until Discontinu ed, Routine, Pain (scale 1-3), Temp > 38.5 C [facility] chlordiazeP OXIDE (LIBRIUM) capsule 25 mg 12-28 23:15: 00 12-28 23:24 :00 No 25mg 25 mg, Oral, ONCE, 1 dose, On 12/28/21 at 1815, [facility] NaCl 0.9% (NS) bolus infusion 2,000 mL 12-28 22:45: 00 12-28 23:18 :00 No 2000mL at 999 mL/hr, 2,000 mL, IV Infusion, ONCE, 1 dose, On 12/28/21 at 1745, [facility] LORazepam (ATIVAN) injection 1 mg 12-28 20:45: 00 12-28 20:49 :00 No 1mg 1 mg, Slow IV Push, ONCE, 1 dose, On 12/28/21 at 1545, STAT
Is the medication being used for status epilepticu s? No [facility] acetaminoph en (TYLENOL) 500 mg tablet 17 00:00: 00 Yes 500mg Take 1 Tab by mouth every 6 (six) hours as needed for Pain. [facility] Vital Signs Vital Name Observation Time Observation Value Comments Veronica xiong Systolic blood pressure 2022-11-11 20:31:31 116 mm[Hg] [facility] Diastolic blood pressure 2022-11-11 20:31:31 77 mm[Hg] [facility] Heart rate 2022-11-11 20:31:31 84 /min [facility] Respiratory rate 2022-11-11 20:31:31 12 /min [facility] Oxygen saturation in Arterial blood by Pulse oximetry 2022-11-11 20:31:31 90 /min [facility] Body temperature 2022-11-11 18:49:00 37.11 Theresa [facility] Body height 2022-11-11 18:49:00 160 cm [facility] Body weight 2022-11-11 18:49:00 68.04 kg [facility] BMI 2022-11-11 18:49:00 26.57 kg/m2 [facility] Body temperature 2022-08-11 14:00:00 36.5 Theresa [facility] Systolic blood pressure 2022-08-11 10:00:00 116 mm[Hg] [facility] Diastolic blood pressure 2022-08-11 10:00:00 71 mm[Hg] [facility] Heart rate 2022-08-11 10:00:00 70 /min [facility] Respiratory rate 2022-08-11 10:00:00 16 /min [facility] Body weight 2022-08-11 10:00:00 65.499 kg [facility] BMI 2022-08-11 10:00:00 25.58 kg/m2 [facility] Oxygen saturation in Arterial blood by Pulse oximetry 2022-08-11 10:00:00 100 /min [facility] Body height 2022-08-10 22:12:00 160 cm [facility] Systolic blood pressure 2022-04-06 16:00:00 125 mm[Hg] [facility] Diastolic blood pressure 2022-04-06 16:00:00 75 mm[Hg] [facility] Heart rate 2022-04-06 16:00:00 87 /min [facility] Respiratory rate 2022-04-06 16:00:00 22 /min [facility] Oxygen saturation in Arterial blood by Pulse oximetry 2022-04-06 16:00:00 98 /min [facility] Body temperature 2022-04-06 14:41:00 37 Theresa [facility] Body height 2022-04-06 14:41:00 160 cm [facility] Body weight 2022-04-06 14:41:00 63.504 kg [facility] BMI 2022-04-06 14:41:00 24.80 kg/m2 [facility] Systolic blood pressure 2022-01-20 02:27:00 121 mm[Hg] [facility] Diastolic blood pressure 2022-01-20 02:27:00 75 mm[Hg] [facility] Heart rate 2022-01-20 02:27:00 79 /min [facility] Respiratory rate 2022-01-20 02:27:00 12 /min [facility] Oxygen saturation in Arterial blood by Pulse oximetry 2022-01-20 02:27:00 98 /min [facility] Body temperature 2022-01-19 22:19:00 36.44 Theresa [facility] Body weight 2022-01-19 22:19:00 60.328 kg [facility] BMI 2022-01-19 22:19:00 23.56 kg/m2 [facility] Systolic blood pressure 2021-12-30 20:52:00 134 mm[Hg] [facility] Diastolic blood pressure 2021-12-30 20:52:00 76 mm[Hg] [facility] Heart rate 2021-12-30 20:52:00 67 /min [facility] Body temperature 2021-12-30 20:26:00 36.67 Theresa [facility] Oxygen saturation in Arterial blood by Pulse oximetry 2021-12-30 20:26:00 99 /min [facility] Respiratory rate 2021-12-30 16:21:00 18 /min [facility] Body weight 2021-12-30 08:27:00 60.464 kg [facility] BMI 2021-12-30 08:27:00 23.61 kg/m2 [facility] Body height 2021-12-29 01:29:00 160 cm [facility] Procedures Procedure Date / Time Performed Performing Clinician Source MAGNESIUM 2022-11-11 19:05:00 Hemant Klein [facility] BASIC METABOLIC PANEL (NA, K, CL, CO2, GLUCOSE, BUN, CREATININE, CA) 2022-11-11 19:05:00 Hemant Klein [facility] ETHANOL 2022-11-11 19:05:00 Hemant Klein [facility] CBC WITH DIFF 2022-11-11 19:05:00 Hemant Klein [facility] POCT GLUCOSE (AUTOMATED) 2022-08-11 13:36:00 Arvind Prado [facility] PHOSPHORUS 2022-08-11 10:35:[address] [facility] MAGNESIUM 2022-08-11 10:35:00 Eve [facility] AMMONIA, PLASMA 2022-08-11 10:35:00 Jessica Prado [facility] COMP. METABOLIC PANEL ([id number]) 2022-08-11 10:35:00 Jessica Prado [facility] CBC WITH DIFF 2022-08-11 10:35:00 Oswald Murphy [facility] POCT GLUCOSE (AUTOMATED) 2022-08-11 02:15:00 Arvind Prado [facility] POCT GLUCOSE (AUTOMATED) 2022-08-10 23:10:00 Arvind Prado [facility] POCT GLUCOSE (AUTOMATED) 2022-08-10 18:20:00 Arvind Prado [facility] POCT GLUCOSE (AUTOMATED) 2022-08-10 14:11:00 Arvind Prado [facility] POCT GLUCOSE (AUTOMATED) 2022-08-10 10:59:00 Gopal Driscoll [facility] COVID-19 (ID NOW RAPID TESTING) 2022-08-10 07:17:00 Rayray Driscoll [facility] LAB ONLY COVID INTERPRETATION 2022-08-10 07:17:00 Rayray Driscoll [facility] HB ECG ROUTINE & RHYTHM STRIP 2022-08-10 06:03:48 Rayray Driscoll [facility] URINALYSIS 2022-08-10 05:46:00 [facility] URINE DRUG (IMMUNOASSAY) - COMPREHENSIVE DRUG SCREEN W/O REFLEX 2022-08-10 05:45:00 Rayray Driscoll [facility] CREATINE KINASE 2022-08-10 05:16:00 [facility] 2022-08-10 05:16:00 Rayray Driscoll [facility] MAGNESIUM 2022-08-10 05:16:00 Rayray Driscoll [facility] TROPONIN I 2022-08-10 05:16:00 Rayray Driscoll [facility] COMP. METABOLIC PANEL ([id number]) 2022-08-10 05:16:00 Rayray Driscoll [facility] ETHANOL 2022-08-10 05:16:00 Rayray Driscoll [facility] CBC WITH DIFF 2022-08-10 05:16:00 Rayray Driscoll [facility] N-TERMINAL PRO-BNP 2022-08-10 05:16:00 Rayray Driscoll [facility] CRITICAL CARE 2022-08-10 04:52:00 Rayray Driscoll [facility] XR CHEST 1 VW 2022-04-06 14:51:50 [facility] 2022-04-06 14:42:00 [facility] TROPONIN I 2022-04-06 14:42:00 Diya Chowdhury [facility] COMP. METABOLIC PANEL ([id number]) 2022-04-06 14:42:00 Diya Chowdhury [facility] CBC WITH DIFF 2022-04-06 14:42:00 [facility] PROTHROM[facility] TIME / INR 2022-04-06 14:42:00 Diya Chowdhury [facility] ACTIVATED PARTIAL THRMPLAS NELDA 2022-04-06 14:42:00 Diya Chowdhury [facility] LACTIC ACID WHOLE BLOOD 2022-01-20 00:22:00 Leticia Baldwin [facility] URINE DRUG (IMMUNOASSAY) - COMPREHENSIVE DRUG SCREEN 2022-01-19 23:10:00 Leticia Baldwin [facility] URINALYSIS 2022-01-19 23:10:00 Leticia Baldwin [facility] TROPONIN I 2022-01-19 23:00:00 Leticia Baldwin [facility] COMP. METABOLIC PANEL ([id number]) 2022-01-19 23:00:00 Leticia Baldwin [facility] LITHIUM 2022-01-19 23:00:00 Leticia Baldwin [facility] ETHANOL 2022-01-19 23:00:00 Leticia Baldwin [facility] CBC WITH DIFF 2022-01-19 23:00:00 Leticia Baldwin [facility] COVID-19 (ID NOW RAPID TESTING) 2022-01-19 23:00:00 Leticia Baldwin [facility] CT HEAD WO CONTRAST 2022-01-19 22:49:00 Leticia Baldwin [facility] XR CHEST 1 VW 2022-01-19 22:41:00 Leticia Baldwin [facility] POCT GLUCOSE (AUTOMATED) 2022-01-19 22:25:00 Leticia Baldwin [facility] POCT GLUCOSE (AUTOMATED) 2021-12-30 21:55:00 Arvind Prado [facility] POCT GLUCOSE (AUTOMATED) 2021-12-30 16:21:00 Arvind Prado [facility] POCT GLUCOSE (AUTOMATED) 2021-12-30 12:30:00 Arvind Prdao [facility] HEPATIC FUNCTION PANEL ([id number]) (ALB,T.PRO,BILI T,BU/BC,ALT,AST,ALK PHOS) 2021-12-30 09:28:00 Maira Gaitan [facility] POCT GLUCOSE (AUTOMATED) 2021-12-30 02:11:00 Arvind Prado [facility] POCT GLUCOSE (AUTOMATED) 2021-12-29 21:41:00 Arvind Prado [facility] POCT GLUCOSE (AUTOMATED) 2021-12-29 16:37:00 Arvind Prado [facility] TRANSTHORACIC ECHO (TTE) COMPLETE W/ CONTRAST 2021-12-29 13:05:00 Jessica Prado [facility] POCT GLUCOSE (AUTOMATED) 2021-12-29 12:41:00 Arvind Prado [facility] TROPONIN I 2021-12-29 09:42:[address] [facility] TROPONIN I 2021-12-29 04:55:00 Eve [facility] CT HEAD WO CONTRAST 2021-12-28 21:18:22 Poppy Renteria [facility] AMMONIA, PLASMA 2021-12-28 21:00:00 Pia Renteria [facility] COVID-19 (ID NOW RAPID TESTING) 2021-12-28 20:42:00 Pia Renteria [facility] LAB ONLY COVID INTERPRETATION 2021-12-28 20:42:00 Pia Renteria [facility] URINE DRUG (IMMUNOASSAY) - COMPREHENSIVE DRUG SCREEN W/O REFLEX 2021-12-28 20:42:00 Pia Renteria [facility] URINALYSIS 2021-12-28 20:40:00 Pia Renteria [facility] N-TERMINAL PRO-BNP 2021-12-28 20:40:00 Corina Renteria [facility] TROPONIN I 2021-12-28 20:40:00 Pia Renteria [facility] THYROID STIMULATING HORMONE 2021-12-28 20:40:00 Jessica Prado [facility] COMP. METABOLIC PANEL ([id number]) 2021-12-28 20:40:00 Pia Renteria [facility] LIPID PANEL ([id number])(TOTAL CHOLESTEROL, TRIGLYCERIDES, HDL) 2021-12-28 20:40:00 Demetrius Langford [facility] ETHANOL 2021-12-28 20:40:00 Demetrius Langford [facility] CBC WITH DIFF 2021-12-28 20:40:00 Pia Renteria [facility] GLYCOSYLATED HEMOGLOBIN (A1C) 2021-12-28 20:40:00 Jessica Prado [facility] PROTHROMBIN TIME / INR 2021-12-28 20:40:00 Lesly Renteria [facility] XR CHEST 1 VW 2021-12-28 20:16:00 Pia Renteria [facility] HB ECG ROUTINE & RHYTHM STRIP 2021-12-28 20:04:59 Pia Renteria [facility] Encounters Start Date/Time End Date/Time Encounter Type Admission Type Attending [facility] Care Facility Care Department Encounter ID Source 2021-09-17 16:45:[address] [facility] [id number] [facility] 2020-06-06 16:07:[address] [facility] [id number] [facility] 2020-06-06 06:20:[address] [facility] [id number] [facility] 2020-06-05 19:35:[address] [facility] [id number] [facility] 2020-05-23 19:53:[address] [facility] [id number] [facility] 2020-05-23 19:53:[address] [facility] [id number] [facility] 2022-11-11 13:50:00 2022-11-11 16:07:00 Emergency X HEMANT KLEIN [facility] ERT [id number] [facility] 2022-11-11 13:50:00 2022-11-11 16:07:00 Emergency Jessica, Hemant [facility] 1.2.840.114 350.1.13.10 4.2.7.2.686 [id number] [facility] 2022-10-14 20:59:00 2022-10-14 20:59:[address] [facility] [id number] [facility] 2022-10-14 20:59:00 2022-10-14 20:59:[address] [facility] [id number] [facility] 2022-08-09 22:59:00 2022-08-11 13:02:00 Outpatient X JESSICA PRADO [facility] [id number] [facility] 2022-08-09 22:59:00 2022-08-11 13:02:00 Emergency Rayray Driscoll Jelani Edionwe, [facility] 1.2.840.114 350.1.13.10 4.2.7.2.686 [id number] [facility] 2022-04-06 09:38:00 2022-04-06 11:42:00 Emergency X DIYA CHOWDHURY [facility] ERT [id number] [facility] 2022-04-06 09:38:00 2022-04-06 11:42:00 Emergency Toddjose l Diya [facility] 1.2.840.114 350.1.13.10 4.2.7.2.686 [id number] [facility] 2022-03-07 12:38:00 2022-03-07 12:38:[address] [facility] [id number] [facility] 2022-03-07 12:38:00 2022-03-07 12:38:[address] Fidel Cuellar [facility] [id number] [facility] 2022-01-19 17:18:00 2022-01-19 22:00:00 Emergency X NNEKA DIRK [facility] ERT [id number] [facility] 2022-01-19 17:18:00 2022-01-19 22:00:00 Emergency Leticia Baldwinveronica Amado [facility] 1.2.840.114 350.1.13.10 4.2.7.2.686 [id number] [id number] [facility] 2021-12-31 00:00:00 2021-12-31 00:00:00 Transition of Care Faye Portillo 1.2.840.114 350.1.13.10 4.2.7.2.686 [id number] [facility] 2021-12-28 14:53:00 2021-12-30 17:42:00 Inpatient X JESSICA PRADO [facility] MARGO [id number] [facility] 2021-12-28 14:53:00 2021-12-30 17:42:00 Hospital Encounter Pia Renteria Jelani [facility] 1.2.840.114 350.1.13.10 4.2.7.2.686 [id number] [facility] 2021-09-17 16:47:00 2021-09-17 16:47:[address] [facility] [id number] [address] [place] [address] 2020-06-06 16:07:00 2020-06-06 16:07:[address] 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 19:41:47* Test Item Value Reference Range Interpretation Comme nts MAGNESIUM (test code = 3865877049) 1.8 mg/dL 1.7-2.4 Lab Interpretation (test cod e = 72834-7) Normal [facility] WITH [id number] 19:25:26* Test Item Value Reference Range Interpretation [...] 33.9 g/dL 31.2-35.0 RDW-SD (test code = 16772-8) 46.0 fL 38.5-51.6 RDW-CV (test code = 788-0) 13.5 % 12.1-15.4 PLT (test code = 777-3) 237 See_Comment [Automated messa ge] The system which generated this result transmitted reference range: 150 - 328 10*3/?L. The reference range was not used to interpret this result as normal/abnormal. MPV (test code = 84586-9) 8.9 fL 9.8-13.0 L NRBC/100 WBC (test code = 1618263428) 0.0 See_Comment [Automated me ssage] The system which generated this result transmitted reference range: 0.0 - 10.0 /100 WBCs. The reference range was not used to interpret this result as normal/abnormal. NRBC x10^3 (test code = 3494044806) See_Comment [Automated messa ge] The system which generated this result transmitted reference range: 10*3/?L. The reference range was not used to interpret this result as normal/abnormal. GRAN MAT (NEUT) % (test code = 770-8) 71.2 % IMM GRAN % (test code = 8645682324) 0.30 % LYMPH % (test code = 736-9) 18.2 % MONO % (test code = 5905-5) 8.4 % EOS % (test code = 713-8) 1.0 % BASO % (test code = 706-2) 0.9 % GRAN MAT x10^3(ANC) (test code = 1739210450) 4.86 10*3/uL 1.99-6.95 IMM GRAN x10^3 (test code = 9202952079) 0.00-0.06 LYMPH x10^3 (test code = 731-0) 1.24 10*3/uL 1.09-3.23 MONO x10^3 (test code = 742-7) 0.57 10*3/uL 0.36-1.02 EOS x10^3 (test code = 711-2) 0.07 10*3/uL 0.06-0.53 BASO x10^3 (test code = 704-7) 0.06 10*3/uL 0.01-0.09 Lab Interpretation (test code = 41542-6) [facility] R[facility] Cult/Qjstm7367-38-13 22:20:00* Test Item Value Reference Range Interpretation Comme nts Color,Urine (test code = UCOL) Yellow Yellow Clarity,Urine (test code = UCLAR) Clear Clear Ph, Urine (test code = UPH) 7.0 5.0-9.0 N Specific Leopold,Urine (test code = USG) 1.020 1.005-1.030 N [...] code = ULEU) Negative mg/dL Negative Drug Screen,Jiiev5951-47-37 22:20:00* Test Item Value Reference Range Interpretation [...] UPROP) Negative Negative Complete Blood Count Auto Gigu1231-63-12 21:21:00* Test Item Value Reference Range Interpretation [...] code = NRBCP) 0 % Comprehensive Metabolic Vlyir3549-64-24 21:21:00* Test Item Value Reference Range Interpretation [...] a race coefficient. Additional information canbe found at:[email or web address]_[email or web address] 5.pdf ([email or web address]) [Automated message] The system [...] = ALP) 134 U/L 46-116 H Ethanol Cgryu9191-37-79 21:21:00* Test Item Value Reference Range Interpretation Comme nts Ethanol (test code = ETOH) < 3 mg/dL The pharmacologi yudy response to blood alcohol levels mayvary from individual to individual. The fatal concentrationhas been reported to be >400mg/dL. POCT GLUCOSE (AUTOMATED)2022-08-11 13:40:35* Test Item Value Reference Range Interpretation Comme [facility] POCT GLU (test code = 5842958500) 121 mg/dL 70-110 H Lab Interpretation (test cod e = 86400-9) Abnormal [facility] GLUCOSE (AUTOMATED)2022-08-11 02:18:58* Test Item Value Reference Range Interpretation Comme [facility] POCT GLU (test code = 5632179310) 183 mg/dL 70-110 H Lab Interpretation (test cod e = 64062-8) Abnormal [facility] GLUCOSE (AUTOMATED)2022-08-10 23:16:11* Test Item Value Reference Range Interpretation Comme nts POCT GLU (test code = 9420124621) 176 mg/dL 70-110 H Lab Interpretation (test cod e = 75797-0) Abnormal [facility] GLUCOSE (AUTOMATED)2022-08-10 18:22:51* Test Item Value Reference Range Interpretation Comme nts POCT GLU (test code = 4513807066) 165 mg/dL 70-110 H Lab Interpretation (test cod e = 78107-1) Abnormal [facility] GLUCOSE (AUTOMATED)2022-08-10 14:18:05* Test Item Value Reference Range Interpretation Comme nts POCT GLU (test code = 2827002203) 138 mg/dL 70-110 H Lab Interpretation (test cod e = 54748-9) Abnormal [facility] GLUCOSE (AUTOMATED)2022-08-10 11:01:21* Test Item Value Reference Range Interpretation Comme nts POCT GLU (test code = 7722000382) 143 mg/dL 70-110 H Lab Interpretation (test cod e = 71272-5) [facility] D4813-28-66 06:51:18* Test Item Value Reference Range Interpretation Comme nts TROPONIN I (test code = 3412853533) 0.008 ng/mL <=0.034 JUAN ALBERTO (test code [...] of biotin. Lab Interpretation (test code = 51284-0) Normal [facility] OCR-[id number] 06:47:37* Test Item Value Reference Range Interpretation Comme nts NT-proBNP (test code = 2857627757) 37 pg/mL <=125 JUAN ALBERTO (test code = JUAN ALBERTO) Biotin has been reported to cause a negative bias, interpret results relative to patient's use of biotin. Lab Interpretation (test code = 89546-9) [facility] 06:25:52 ALCOHOL<10mg/dL08/10/2022 12:25 AM [facility]<10 Tiwecdnr25-081 Toxic>100 Depression of PARACHUTE HARNESS RIGGER>400 F[facility]ities [facility]COMP. METABOLIC PANEL (08121)2022-08-10 06:19:15* Test Item Value Reference Range Interpretation Comme nts NA (test code = 8854446672) 135 mmol/L 135-145 K (test code = 1702788791) 4.3 mmol/L 3.5-5.0 CL (test code = 1507069257) 98 mmol/L 98-108 CO2 TOTAL (test code = 2543681291) 30 mmol/L 23-31 AGAP (test code = 8657989307) 7 2-16 BUN (test code = 4820797496) 11 mg/dL 7-23 GLUCOSE (test code = 9402207361) 153 mg/dL 70-110 H CREATININE (test code = 3848300182) 0.77 mg/dL 0.60-1.25 TOTAL BILI (test code = 8154699571) 0.9 mg/dL 0.1-1.1 CALCIUM (test code = 7068117820) 10.0 mg/dL 8.6-10.6 T PROTEIN (test code = 3519542450) 7.7 g/dL 6.3-8.2 ALBUMIN (test code = 2775378040) 4.6 g/dL 3.5-5.0 ALK PHOS (test code = 6251239656) 92 U/L 34-122 ALTv (test code = 1742-6) 35 U/L 5-50 AST(SGOT) (test code = 6003032411) 42 U/L 13-40 H eGFR (test code = 6398802142) 106.1 mL/min/1.73m2 JUAN ALBERTO (test code = [...] imaging tests). Lab Interpretation (test code = 83620-6) [facility] 06:19:15* Test Item Value Reference Range Interpretation Comme nts MAGNESIUM (test code = 4230785631) 2.2 mg/dL 1.7-2.4 Lab Interpretation (test cod e = 41457-0) Normal [facility]2023-[facility]-19 06:18:55* Test Item Value Reference Range Interpretation Comme nts LIPASE (test code = 8062431973) 18 U/L 0-220 Lab Interpretation (test cod e = 12748-8) Normal [facility]AT[facility] LXSVKX5962-10-29 06:18:55* Test Item Value Reference Range Interpretation Comme nts CK (test code = 4703761227) 174 U/L 33-194 Lab Interpretation (test cod e = 86623-2) Normal [facility] WITH [id number] 06:02:35* Test Item Value Reference Range Interpretation [...] 32.4 g/dL 31.2-35.0 RDW-SD (test code = 09347-1) 50.2 fL 38.5-51.6 RDW-CV (test code = 788-0) 14.3 % 12.1-15.4 PLT (test code = 777-3) 241 See_Comment [Automated messa ge] The system which generated this result transmitted reference range: 150 - 328 10*3/?L. The reference range was not used to interpret this result as normal/abnormal. MPV (test code = 01770-7) 8.6 fL 9.8-13.0 L NRBC/100 WBC (test code = 4983165642) 0.0 See_Comment [Automated [employer] 3D ssage] The system which generated this result transmitted reference range: 0.0 - 10.0 /100 WBCs. The reference range was not used to interpret this result as normal/abnormal. NRBC x10^3 (test code = 1841844917) See_Comment [Automated messa ge] The system which generated this result transmitted reference range: 10*3/?L. The reference range was not used to interpret this result as normal/abnormal. GRAN MAT (NEUT) % (test code = 770-8) 63.9 % IMM GRAN % (test code = 2765404838) 0.50 % LYMPH % (test code = 736-9) 17.6 % MONO % (test code = 5905-5) 16.5 % EOS % (test code = 713-8) 0.7 % BASO % (test code = 706-2) 0.8 % GRAN MAT x10^3(ANC) (test code = 3951431448) 4.79 10*3/uL 1.99-6.95 IMM GRAN x10^3 (test code = 6066016868) 0.04 10*3/uL 0.00-0.06 LYMPH x10^3 (test code = 731-0) 1.32 10*3/uL 1.09-3.23 MONO x10^3 (test code = 742-7) 1.24 10*3/uL 0.36-1.02 H EOS x10^3 (test code = 711-2) 0.05 10*3/uL 0.06-0.53 L BASO x10^3 (test code = 704-7) 0.06 10*3/uL 0.01-0.09 Lab Interpretation (test code = 78266-2) Abnormal [facility] [place] [place] R9900-04-30 15:15:32* Test Item Value Reference Range Interpretation Comments TROPONIN I (test code = 9815425833) 0.007 ng/mL See_Comment [Automated message] The system [...] of biotin. Lab Interpretation (test code = 97536-8) [facility]TT2022-[facility]16 15:08:29* Test Item Value Reference Range [...] 30 seconds. Lab Interpretation (test code = 69048-9) Normal [facility]anoPROT[facility] / [id number] 15:06:28* Test Item Value Reference Range Interpretation [...] the indications. Lab Interpretation (test code = 17966-6) [facility]OL[facility] PANEL (08886)2022-04-06 15:03:31* Test Item Value Reference Range Interpretation Comme [facility] NA (test code = 4422027692) 136 mmol/L 135-145 K (test code = 3745724893) 5.0 mmol/L 3.5-5 CL (test code = 0764375521) 104 mmol/L 98-108 CO2 TOTAL (test code = 6497143442) 21 mmol/L 23-31 L AGAP (test code = 7016528828) 2-16 BUN (test code = 0278108389) 11 mg/dL 7-23 GLUCOSE (test code = 0091049171) 162 mg/dL 70-110 H CREATININE (test code = 1374516877) 0.52 mg/dL 0.6-1.25 L TOTAL BILI (test code = 6086258550) 1.0 mg/dL 0.1-1.1 CALCIUM (test code = 8190766776) 9.3 mg/dL 8.6-10.6 T PROTEIN (test code = 9978068630) 7.4 g/dL 6.3-8.2 ALBUMIN (test code = 4095408719) 4.4 g/dL 3.5-5 ALK PHOS (test code = 6611831254) 134 U/L 34-122 H ALTv (test code = 1742-6) 17 U/L 5-50 AST(SGOT) (test code = 2940341326) 38 U/L 13-40 eGFR (test code = 5538180885) mL/min/1.73m2 JUAN ALBERTO (test code = JUAN [...] imaging tests). Lab Interpretation (test code = 42882-8) [facility], SYMTS1294-24-49 15:03:31* Test Item Value Reference Range Interpretation Comme nts LIPASE (test code = 6044013326) 29 U/L 0-220 Lab Interpretation (test cod e = 62184-6) Normal [facility] WITH [id number] 14:51:49* Test Item Value Reference Range Interpretation [...] 34.0 g/dL 31.2-35 RDW-SD (test code = 80963-7) 45.9 fL 38.5-51.6 RDW-CV (test code = 788-0) 13.3 % 12.1-15.4 PLT (test code = 777-3) See_Comment [Automated messa ge] The system which generated this result transmitted reference range: 150 - 328 10*3/?L. The reference range was not used to interpret this result as normal/abnormal. MPV (test code = 72436-7) 8.4 fL 9.8-13 L NRBC/100 WBC (test code = 0625800734) See_Comment [Automated Gateway 3D ssage] The system which generated this result transmitted reference range: 0.0 - 10.0 /100 WBCs. The reference range was not used to interpret this result as normal/abnormal. NRBC x10^3 (test code = 6219186870) See_Comment [Automated messa ge] The system which generated this result transmitted reference range: 10*3/?L. The reference range was not used to interpret this result as normal/abnormal. GRAN MAT (NEUT) % (test code = 770-8) 63.0 % IMM GRAN % (test code = 4409677114) 0.50 % LYMPH % (test code = 736-9) 25.2 % MONO % (test code = 5905-5) 9.8 % EOS % (test code = 713-8) 0.3 % BASO % (test code = 706-2) 1.2 % GRAN MAT x10^3(ANC) (test code = 1694692382) 3.73 10*3/uL 1.99-6.95 IMM GRAN x10^3 (test code = 2994036650) 0.03 10*3/uL 0-0.06 LYMPH x10^3 (test code = 731-0) 1.49 10*3/uL 1.09-3.23 MONO x10^3 (test code = 742-7) 0.58 10*3/uL 0.36-1.02 EOS x10^3 (test code = 711-2) 0.06-0.53 L BASO x10^3 (test code = 704-7) 0.07 10*3/uL 0.01-0.09 Lab Interpretation (test code = 15351-7) [facility] Ur[facility] Rflx Cult/Cfizz8978-75-29 13:53:00* Test Item Value Reference Range Interpretation Comme nts Color,Urine (test code = UCOL) Yellow Yellow Clarity,Urine (test code = UCLAR) Cloudy Clear A Ph, Urine (test code = UPH) 7.5 5.0-9.0 N Specific Leopold,Urine (test code = USG) 1.025 1.005-1.030 N [...] = ULEU) Negative mg/dL Negative UF REFLEXDrug Screen,Ytmqy9240-00-29 13:53:00* Test Item Value Reference Range Interpretation [...] UPROP) Negative Negative Complete Blood Count Auto Ypsc3229-69-75 12:58:00* Test Item Value Reference Range Interpretation [...] = NRBCP) 0 % Coronavirus PCR, COVID19 Nttsf1125-91-64 12:58:00* Test Item Value Reference Range Interpretation Comme nts Coronavirus PCR, COVID19 Rapid (test code = SARSCOV2) Coronavirus PCR, COVID19 Rapid (test code = FXFLMZK98.1) Reference Range: Negative SARS-CoV-2 PCR Result: (test code = SARS-CoV-2 PCR Result:) Negative by RT-PCR COVID-19 Status: AsymptomaticComprehensive Metabolic Kglse5560-54-43 12:58:00* Test Item Value Reference Range Interpretation [...] = ALP) 144 U/L 46-116 H Ethanol Xcexy6470-13-59 12:58:00* Test Item Value Reference Range Interpretation Comme nts Ethanol (test code = ETOH) < 3 mg/dL The pharmacologi yudy response to blood alcohol levels mayvary from individual to individual. The fatal concentrationhas been reported to be >400mg/dL. RWNHTGI1964-81-59 01:47:56* Test Item Value Reference Range Interpretation Comme nts [place] (test code = 5077696814) 0.7 mmol/L 0.6-1.2 JUAN ALBERTO (test code = JUAN ALBERTO) Toxic Range: ? Greater than 1.2 mmol/L Lab Interpretation (test code = 17383-2) [facility] [id number] 00:26:53* Test Item Value Reference Range Interpretation Comments TROPONIN I (test code = 4305557087) 0.002 ng/mL See_Comment [Automated message] The system [...] of biotin. Lab Interpretation (test code = 44183-2) [facility]22[facility] 00:18:52 ALCOHOL<10mg/dL01/19/2022 7:18 PM [facility]10 Jpramfaq23-669 Toxic>100 Depression of PARACHUTE HARNESS RIGGER>400 Fatalities [facility]ortedChildren[facility] PlanoCOMP. METABOLIC PANEL (97542)2022-01-20 00:16:16* Test Item Value Reference Range Interpretation Comme nts NA (test code = 7258684699) 137 mmol/L 135-145 K (test code = 8453742897) 4.5 mmol/L 3.5-5 CL (test code = 0714369251) 103 mmol/L 98-108 CO2 TOTAL (test code = 2792228950) 26 mmol/L 23-31 AGAP (test code = 3187601375) 2-16 BUN (test code = 8478622944) 10 mg/dL 7-23 GLUCOSE (test code = 2078637012) 121 mg/dL 70-110 H CREATININE (test code = 9944120522) 0.65 mg/dL 0.6-1.25 TOTAL BILI (test code = 3873662522) 0.8 mg/dL 0.1-1.1 CALCIUM (test code = 1167296690) 11.4 mg/dL 8.6-10.6 H T PROTEIN (test code = 5106950820) 7.2 g/dL 6.3-8.2 ALBUMIN (test code = 0249807635) 4.6 g/dL 3.5-5 ALK PHOS (test code = 7776740268) 112 U/L 34-122 ALTv (test code = 1742-6) 19 U/L 5-50 AST(SGOT) (test code = 0860713824) 26 U/L 13-40 eGFR (test code = 7280333463) mL/min/1.73m2 JUAN ALBERTO (test code = JUAN [...] imaging tests). Lab Interpretation (test code = 89360-5) Abnormal [facility] WITH [id number] 23:43:54* Test Item Value Reference Range Interpretation Comme nts WBC (test code = 6690-2) See_Comment [Automated messa ge] The system which generated this result transmitted reference range: 4.20 - 10.70 10*3/?L. The reference range was not used to interpret this result as normal/abnormal. RBC (test code = 789-8) See_Comment [Automated IndianStagea ge] The system which generated this result [...] 34.4 g/dL 31.2-35 RDW-SD (test code = 77872-8) 44.0 fL 38.5-51.6 RDW-CV (test code = 788-0) 12.6 % 12.1-15.4 PLT (test code = 777-3) See_Comment [Automated [employer]a ge] The system which generated this result transmitted reference range: 150 - 328 10*3/?L. The reference range was not used to interpret this result as normal/abnormal. MPV (test code = 53257-1) 9.1 fL 9.8-13 L NRBC/100 WBC (test code = 3594795004) See_Comment [Automated [employer] 3D ssage] The system which generated this result transmitted reference range: 0.0 - 10.0 /100 WBCs. The reference range was not used to interpret this result as normal/abnormal. NRBC x10^3 (test code = 8520160349) See_Comment [Automated IndianStagea ge] The system which generated this result transmitted reference range: 10*3/?L. The reference range was not used to interpret this result as normal/abnormal. GRAN MAT (NEUT) % (test code = 770-8) 69.8 % IMM GRAN % (test code = 9379853870) 0.40 % LYMPH % (test code = 736-9) 18.0 % MONO % (test code = 5905-5) 10.9 % EOS % (test code = 713-8) 0.1 % BASO % (test code = 706-2) 0.8 % GRAN MAT x10^3(ANC) (test code = 8882188633) 5.58 10*3/uL 1.99-6.95 IMM GRAN x10^3 (test code = 6581630481) 0.03 10*3/uL 0-0.06 LYMPH x10^3 (test code = 731-0) 1.44 10*3/uL 1.09-3.23 MONO x10^3 (test code = 742-7) 0.87 10*3/uL 0.36-1.02 EOS x10^3 (test code = 711-2) 0.06-0.53 L BASO x10^3 (test code = 704-7) 0.06 10*3/uL 0.01-0.09 Lab Interpretation (test code = 86929-0) Abnormal [facility] GLUCOSE (AUTOMATED)2022-01-19 22:27:41* Test Item Value Reference Range Interpretation Comme nts POCT GLU (test code = 6029470386) 123 mg/dL 70-110 H Lab Interpretation (test cod e = 29668-0) Abnormal [facility] GLUCOSE (AUTOMATED)2021-12-30 22:08:16* Test Item Value Reference Range Interpretation Comme nts POCT GLU (test code = 6705940353) 167 mg/dL 70-110 H Lab Interpretation (test cod e = 84948-2) Abnormal [facility] GLUCOSE (AUTOMATED)2021-12-30 16:50:40* Test Item Value Reference Range Interpretation Comme nts POCT GLU (test code = 6556928450) 154 mg/dL 70-110 H Lab Interpretation (test cod e = 11952-1) Abnormal [facility] GLUCOSE (AUTOMATED)2021-12-30 12:38:43* Test Item Value Reference Range Interpretation Comme nts POCT GLU (test code = 9823844507) 164 mg/dL 70-110 H Lab Interpretation (test cod e = 18185-6) Abnormal [facility] GLUCOSE (AUTOMATED)2021-12-30 02:14:58* Test Item Value Reference Range Interpretation Comme nts POCT GLU (test code = 7411861790) 220 mg/dL 70-110 H Lab Interpretation (test cod e = 75659-1) Abnormal [facility] GLUCOSE (AUTOMATED)2021-12-29 21:50:02* Test Item Value Reference Range Interpretation Comme nts POCT GLU (test code = 0624540397) 191 mg/dL 70-110 H Lab Interpretation (test cod e = 26447-3) Abnormal [facility] GLUCOSE (AUTOMATED)2021-12-29 20:15:01* Test Item Value Reference Range Interpretation Comme nts POCT GLU (test code = 6195807238) 163 mg/dL 70-110 H Lab Interpretation (test cod e = 62502-6) [facility]2021-12-29 19:12:22* Test Item Value Reference Range Interpretation Comme nts Height (test code = 5189252239) in Weight (test code = 4183509498) lbs Systolic BP (test code = 1175095803) mmHg Diastolic BP (test code = 7462687983) mmHg Heart Rate (test code = 9582126092) bpm BSA (test code = 3085658020) 1.62 m2 Ao root annulus (test code = 9003930499) 2.45 cm Ao root diam (test code = 7636371118) 2.45 cm Aortic root (test code = 5943569591) 2.45 cm ACS (test code = 9918700301) 1.66 cm LA size (test code = 5790357190) 3.2 cm LVOT diameter (test code = 0799247310) 1.95 cm LVIDD (test code = 9938054585) 3.60 cm IVS (test code = 7614200647) 0.94 cm Interventricular Septum Diastolic Thickness by 2D (test code = 6364036) 0.94 cm LVPWD (test code = 8219116904) 0.80 cm PW (test code = 5187140549) 0.80 cm 0.6-1.1 EF(Teich) (test code = 6925447762) 52.80 % LVIDS (test code = 9226947830) 2.60 cm FS (test code = 9085669051) 27 % EF - 2D (test code = 64731357) 52.80 % LAV(MOD-sp4) (test code = 2319292331) 16.80 mL MV Peak E Jovany (test code = 8015677614) 46.1 cm/s E wave decelartion time (test code = 9003366490) 0.31 s MV Peak A Jovany (test code = 2832074240) 58.1 cm/s E/A ratio (test code = 4751705397) ratio MV E/e' septal (test code = 8138935095) 5.7 cm/s Tapse (test code = 4780131774) 1.60 cm LVOT stroke volume (test code = 7691234063) 52.10 cm3 LVOT peak jovany (test code = 2467655015) 110.6 cm/s LVOT mn grad (test code = 1904269665) mmHg AV LVOT peak gradient (test code = 6068265943) mmHg LVOT peak VTI (test code = 9275913134) 17.4 cm LV V1 mean (test code = 3297625074) 66.10 cm/s Aortic valve mean velocity (test code = 3845109585) 73.0 cm/s Ao peak jovany (test code = 4608208981) 124.6 cm/s Ao VTI (test code = 4502077777) 18.6 cm AV area by cont VTI (test code = 9017921032) 2.8 cm2 AV area peak jovany (test code = 5669024372) 2.7 cm2 Ao max PG (test code = 1119500899) 6.20 mm[Hg] AV peak gradient (test code = 5961661757) mmHg AV valve area (test code = 2384307541) 2.80 cm2 AV mean gradient (test code = 3175157584) mmHg Radiology Study observation (narrative) (test code = 53965-2) JUAN ALBERTO (test code = JUAN ALBERTO) [...] mL of Lumason ultrasound enhancing agent used. [facility] (AUTOMATED)2021-12-29 12:50:31* Test Item Value Reference Range Interpretation Comme nts POCT GLU (test code = 4650025645) 141 mg/dL 70-110 H Lab Interpretation (test cod e = 56453-4) [facility] [id number] 10:38:31* Test Item Value Reference Range Interpretation Comments TROPONIN I (test code = 2556206163) 0.003 ng/mL See_Comment [Automated message] The system [...] of biotin. Lab Interpretation (test code = 24308-6) [facility]ano[facility]IP[facility] (87483)(TOTAL CHOLESTEROL, TRIGLYCERIDES, HDL)2021-12-29 05:56:47* Test Item Value Reference Range Interpretation Comme nts CHOL (test code = 0613343241) 168 mg/dL 120-200 HDL (test code = 0093389013) 102 mg/dL See_Comment [Automated [employer]] The system which generated this result transmitted reference range: >=40. The reference range was not used to interpret this result as normal/abnormal. HDLC RATIO (test code = 0730603103) See_Comment [Automated [employer]] The system which generated this result transmitted reference range: <=5.0. The reference range was not used to interpret this result as normal/abnormal. TRIG (test code = 1027674690) 55 mg/dL 30-170 LDL CHOL (test code = 74331-3) 55 mg/dL See_Comment [Automated [employer]] The system which generated this result transmitted reference range: <=160. The reference range was not used to interpret this result as normal/abnormal. VLDL (test code = 5313250877) 11 mg/dL 5-60 Lab Interpretation (test code = 65698-1) [facility] Hormone (TSH)2021-12-29 05:40:29* Test Item Value Reference Range Interpretation Comme nts TSH (test code = 8270988817) See_Comment Biotin has been reported to cause a negative bias, interpret results relative to patient's use of biotin. [Automated message] The system which generated this result transmitted reference range: 0.45 - 4.70 mIU/L. The reference range was not used to interpret this result as normal/abnormal. Lab Interpretation (test code = 95368-9) [facility]rop[facility] [id number] 05:34:29* Test Item Value Reference Range Interpretation Comments TROPONIN I (test code = 0224525757) 0.006 ng/mL See_Comment [Automated message] The system [...] of biotin. Lab Interpretation (test code = 11408-2) [facility]OL2022-[facility]-10 04:43:01 ALCOHOL<10mg/dL12/28/2021 11:43 PM [facility] Greater than or equal to 80 mg/dL. NOTE: Whole blood values are approximately 10% to 15% lower than serum and plasma.[facility] Glycosylated Hemoglobin (A1C)2021-12-29 01:51:44* Test Item Value Reference Range Interpretation Comme nts HGB A1C (test code = 4548-4) 6.5 % 4-5.7 H JUAN ALBERTO (test code = JUAN ALBERTO) Reference RangesNormal: <5.7%Prediabetes: 5.7 - 6.4%Diabetes: > 6.5% Lab Interpretation (test code = 90008-2) [facility]TR[facility] [id number] 21:26:50* Test Item Value Reference Range Interpretation Comments TROPONIN I (test code = 1509968767) 0.002 ng/mL See_Comment [Automated message] The system [...] of biotin. Lab Interpretation (test code = 90985-6) [facility]anoN-TERMINAL [id number] 21:23:29* Test Item Value Reference Range Interpretation Comme nts NT-proBNP (test code = 3380699259) 41 pg/mL See_Comment [Automated message] The system which generated this result transmitted reference range: <=125. The reference range was not used to interpret this result as normal/abnormal. JUAN ALBERTO (test code = JUAN ALBERTO) Biotin has been reported to cause a negative bias, interpret results relative to patient's use of biotin. Lab Interpretation (test code = 66723-2) [facility]AM[facility], [id number] 21:20:38* Test Item Value Reference Range Interpretation Comme nts AMMONIA (test code = 4331005986) 9-33 L Slight hemolysis Lab Interpretation (test code = 02134-6) [facility]anoCOMP. METABOLIC PANEL (69393)2021-12-28 21:08:48* Test Item Value Reference Range Interpretation Comme nts NA (test code = 7937471595) 137 mmol/L 135-145 K (test code = 5616443002) 4.5 mmol/L 3.5-5 CL (test code = 0700683885) 97 mmol/L 98-108 L CO2 TOTAL (test code = 6416802445) 29 mmol/L 23-31 AGAP (test code = 2105446596) 2-16 BUN (test code = 2062038229) 10 mg/dL 7-23 GLUCOSE (test code = 4268695553) 188 mg/dL 70-110 H CREATININE (test code = 5370329055) 0.58 mg/dL 0.6-1.25 L TOTAL BILI (test code = 4298198349) 0.8 mg/dL 0.1-1.1 CALCIUM (test code = 4156757888) 10.5 mg/dL 8.6-10.6 T PROTEIN (test code = 8609205704) 7.6 g/dL 6.3-8.2 ALBUMIN (test code = 5914775937) 4.5 g/dL 3.5-5 ALK PHOS (test code = 7667280581) 107 U/L 34-122 ALTv (test code = 1742-6) 66 U/L 5-50 H AST(SGOT) (test code = 5682206698) 96 U/L 13-40 H eGFR (test code = 7345244116) mL/min/1.73m2 JUAN ALBERTO (test code = JUAN [...] imaging tests). Lab Interpretation (test code = 83194-9) [facility]anoPROTHROMBIN TIME / [id number] 21:01:25* Test Item Value Reference Range Interpretation Comme jaelyn LUCIO PATIENT (test code = 5964-2) See_Comment [Automated Testlio] The system which generated this result transmitted reference range: 12.0 - 14.7 Seconds. The reference range was not used to interpret this result as normal/abnormal. INR (test code = 6301-6) Normal INR <1.1; Warfarin Therapeutic range 2.0 to 3.0 or 2.5 to 3.5, depending upon the indications. Lab Interpretation (test code = 43816-6) Normal [facility] WITH [id number] 20:54:03* Test Item Value Reference Range Interpretation [...] 34.2 g/dL 31.2-35 RDW-SD (test code = 49062-6) 47.8 fL 38.5-51.6 RDW-CV (test code = 788-0) 13.3 % 12.1-15.4 PLT (test code = 777-3) See_Comment [Automated messa ge] The system which generated this result transmitted reference range: 150 - 328 10*3/?L. The reference range was not used to interpret this result as normal/abnormal. MPV (test code = 15423-6) 8.6 fL 9.8-13 L NRBC/100 WBC (test code = 2319639641) See_Comment [Automated me ssage] The system which generated this result transmitted reference range: 0.0 - 10.0 /100 WBCs. The reference range was not used to interpret this result as normal/abnormal. NRBC x10^3 (test code = 2570792668) See_Comment [Automated messa ge] The system which generated this result transmitted reference range: 10*3/?L. The reference range was not used to interpret this result as normal/abnormal. GRAN MAT (NEUT) % (test code = 770-8) 64.1 % IMM GRAN % (test code = 7794361919) 0.40 % LYMPH % (test code = 736-9) 16.6 % MONO % (test code = 5905-5) 17.2 % EOS % (test code = 713-8) 0.2 % BASO % (test code = 706-2) 1.5 % GRAN MAT x10^3(ANC) (test code = 1073106627) 3.47 10*3/uL 1.99-6.95 IMM GRAN x10^3 (test code = 0438829968) 0-0.06 LYMPH x10^3 (test code = 731-0) 0.90 10*3/uL 1.09-3.23 L MONO x10^3 (test code = 742-7) 0.93 10*3/uL 0.36-1.02 EOS x10^3 (test code = 711-2) 0.06-0.53 L BASO x10^3 (test code = 704-7) 0.08 10*3/uL 0.01-0.09 Lab Interpretation (test code = 18582-7) [facility]anoEthanol [id number] 21:08:00* Test Item Value Reference Range Interpretation Comme nts Ethanol (test code = ETOH) < 3 mg/dL The pharmacologi yudy response to blood alcohol levels mayvary from individual to individual. The fatal concentrationhas been reported to be >400mg/dL. Complete Blood Count Auto [id number] 17:33:00* Test Item Value Reference Range Interpretation [...] = NRBCP) 0 % UA, Urinalysis Rflx Cult/[id number] 17:33:00* Test Item Value Reference Range Interpretation Comme nts Color,Urine (test code = UCOL) Dark Yellow Yellow A Clarity,Urine (test code = UCLAR) Clear Clear Ph, Urine (test code = UPH) 6.5 5.0-9.0 N Specific Leopold,Urine (test code = USG) 1.015 1.005-1.030 N [...] = ULEU) Trace mg/dL Negative A Urine [id number] 17:33:00* Test Item Value Reference Range Interpretation Comme nts RBC,Urine (test code = URBCUF) None Seen /HPF 0-2 WBC,Urine (test code = UWBCUF) 0-5 /HPF 0-5 Epithelial Cell,Urine (test code = UECUF) 0-5 /HPF 0-5 Casts,Urine (test code = UCASTUF) None Seen /LPF None Seen Bacteria,Urine (test code = UBACTUF) None Seen /hpf None Seen Drug Screen,[id number] 17:33:00* Test Item Value Reference Range Interpretation [...] code = UPROP) Negative Negative Comprehensive Metabolic [id number] 17:33:00* Test Item Value Reference Range Interpretation [...] 101 U/L 46-116 N Sars-CoV-2/FLU A/B RSV [id number] 17:31:00* Test Item Value Reference Range Interpretation [...] SARS-CoV-2 PCR Result:) Negative by RT-PCR Drug Screen,[id number] 17:20:00* Test Item Value Reference Range Interpretation [...] UPROP) Negative Negative Complete Blood Count Auto [id number] 17:14:00* Test Item Value Reference Range Interpretation [...] code = NRBCP) 0 % Comprehensive Metabolic [id number] 17:14:00* Test Item Value Reference Range Interpretation [...] = ALP) 207 U/L 46-116 H Ethanol [id number] 17:14:00* Test Item Value Reference Range Interpretation Comme nts Ethanol (test code = ETOH) 192 mg/dL Complete Blood Count Auto [id number] 20:20:00* Test Item Value Reference Range Interpretation [...] code = NRBCP) 0 % Comprehensive Metabolic [id number] 20:20:00* Test Item Value Reference Range Interpretation [...] = ALP) 189 U/L 46-116 H Ethanol [id number] 20:20:00* Test Item Value Reference Range Interpretation Comme nts Ethanol (test code = ETOH) 10 mg/dL Sars-CoV-2/FLU A/B RSV [id number] 20:20:00* Test Item Value Reference Range Interpretation [...] Negative by Nucleic Acid Amplification UA, Urinalysis Oqmmpylvbss9722-06-24 20:20:00* Test Item Value Reference Range Interpretation Comme nts Color,Urine (test code = UCOL) Yellow Y Clarity,Urine (test code = UCLAR) Clear Clear PH,Urine (test code = UPH.XX) 7.0 5.5-8.5 Specific Leopold,Urine (test code = USG) 1.020 1.005-1.030 N [...] code = ULEU) Negative cells/uL Negative Drug Screen,[id number] 20:20:00* Test Item Value Reference Range Interpretation [...] RESULT TO FO LLOW CT head/brain wo [facility] [address] [place] [address] Patient Name: Walt Velazquez Medical Record#: [id number] Address: Homeless City/State/Zip: [place] [address]: Vinnie Navarro MD Phone: Insurance: Self Pay /Age/Sex: 1970/50/M Admit/Reg Date: 09/17/[address]: Vinnie Navarro MD Location: [facility]/ PCP: PcpMd KERWIN Jimenez Date of Service: 09/17/21 Order (s): CT head/brain wo con CPT Code: 96525 Report Number: [id number] Reason for Exam: Altered mental status Location [...]
[2023-09-27 16:51] LABS: Absolute Basophils 0.1 K/uL (0-0.5); Absolute Lymphocytes (CBC) 1.2 K/uL (0.7-4.9); Absolute Monocytes 0.4 K/uL (0.1-1.3); Absolute Neutrophil 1.4 K/uL (1.8-8.0); Basophils % 2.1 % (0-1.3); Eosinophils % 0.5 % (0-4.4); Hematocrit 40.2 % (39.6-49.0); Hemoglobin 13.1 g/dL (13.6-17.9); Lymphocytes % 38.5 % (15.3-44.8); MCH 29.5 pg (27.0-35.0); MCHC 32.5 g/dL (32.0-36.0); MCV 90.6 fL (80-100); MPV 6.8 fL (7.6-11.3); Monocytes % 13.4 % (3.3-12.3); Neutrophils % 45.5 % (41.7-73.7); Platelets 85 thou/uL (152-406); RBC Red Blood Cell Count 4.43 M/uL (4.33-5.43)
[2023-09-27 16:54] LABS: PT Prothrombin Time 9.8 SECONDS (9.5-12.5); PTT, Activated Partial Thromb 30.5 SECONDS (24.3-36.9); Protime INR 0.89
--- NOTE | 2023-09-27 16:55 | RAD REPORT ---
EXAM DESCRIPTION: RAD - Chest Single View - 09/27/2023 4:31 pm CLINICAL HISTORY: COUGH COMPARISON: Chest Single View dated 09/21/2023; Chest Single View dated 08/05/2023; Chest Single View d ated 07/24/2023; Chest Single View dated 07/23/2023 FINDINGS: Lines: None. Lungs: No evidence of edema or pneumonia. Pleural: No significant pleural effusions or pneumothorax. Cardiac: The heart size is within normal limits. Mediastinum: Within normal limits. Bones: No acute fractures. Other: None IMPRESSION: No acute cardiopulmonary disease.
--- NOTE | 2023-09-27 16:55 | RAD REPORT ---
EXAM DESCRIPTION: CT - Head Brain Wo Cont - 09/27/2023 4:35 pm CLINICAL HISTORY: SEIZURE COMPARISON: Head Brain Wo Cont dated 08/25/2023; Head Brain Wo Cont dated 08/25/2023 TECHNIQUE: All CT scans are performed using dose optimization technique as appropriate and may inclu de automated exposure control or mA/KV adjustment according to patient size. FINDINGS: No intracranial hemorrhage, hydrocephalus or extra-axial fluid collection.No areas of brai n edema or evidence of midline shift. Small cyst in the central forehead soft tissues. Cerebral atrop hy. Mild right maxillary sinus thickening. The calvarium is intact. IMPRESSION: No acute intracranial abnormality.
[2023-09-27 17:00] LABS: Specific Gravity 1.005 (1.005-1.030); Sqamous Epithelial None Seen /HPF (None Seen); Urine Bacteria <20 /HPF (<20); Urine Bilirubin NEGATIVE (Negative); Urine Blood Negative (Negative); Urine Clarity Turbid (Clear); Urine Color Colorless (Yellow); Urine Culture Reflex Order NOT NEEDED; Urine Glucose 2+ (Negative); Urine Ketones NEGATIVE (Negative); Urine Microscopic Reflex YN ORDER UMIC; Urine Nitrite NEGATIVE (Negative); Urine Protein NEGATIVE (Negative); Urine RBC <5 /HPF (None Seen); Urine Urobilinogen Normal (Normal); Urine WBC <5 /HPF (<5)
[2023-09-27 17:03] LABS: Barbiturates NEGATIVE (NEGATIVE); Benzodiazepines NEGATIVE (NEGATIVE); Cocaine NEGATIVE (NEGATIVE); METHAMPHETAM NEGATIVE (NEGATIVE); Methadone NEGATIVE (NEGATIVE); Opiates NEGATIVE (NEGATIVE); Phencyclidine NEGATIVE (NEGATIVE); THC Cannibis NEGATIVE (NEGATIVE)
--- NOTE | 2023-09-27 17:14 | ER ---
Nurse's Notes [facility] Name: Walt Velazquez Age: 52 yrs Sex: Male : 1970 Arrival Date: 09/27/2023 Time: 15:47 Bed External Waiting Private MD: Diagnosis: Epileptic seizures related to external causes, not intractable;Alcohol abuse with other alcohol-induced disorders;Parkinson's disease Presentation: 09/26 15:50 Chief complaint: EMS states: was found lying in the road, was brought to ER for iw evaluation, pt states he had a seizure and he fell out , they put him in the car and brought him here, he drinks two cases of beer per day. Coronavirus screen: At this time, the client does not indicate any symptoms associated with coronavirus-19. Ebola Screen: Patient negative for fever greater than or equal to 101.5 degrees Fahrenheit, and additional compatible Ebola Virus Disease symptoms Patient denies exposure to infectious person. Patient denies travel to an Ebola-affected area in the 21 days before illness onset. No symptoms or risks identified at this time. Initial Sepsis Screen: Does the patient meet any 2 criteria? No. Patient's initial sepsis screen is negative. Does the patient have a suspected source of infection?. Risk Assessment: Do you want to hurt yourself or someone else? Patient reports no desire to harm self or others. Onset of symptoms was September 27, 2023. 15:50 Method Of Arrival: EMS: [facility] iw 15:50 Acuity: LATASHA 3 iw Historical: - Allergies: 15:51 Trazodone; iw - PMHx: 15:51 Alcoholism; Bipolar II; Hypertensive disorder; Parkinsons; Seizure; iw - Immunization history:: Adult Immunizations up to date. - Family history:: not pertinent. Assessment: 15:15 General: Appears in no apparent distress. Behavior is cooperative. Pain: Denies pain. iw Neuro: Level of Consciousness is awake, alert, obeys commands, Oriented to person, place, situation, Moves all extremities. Cardiovascular: Patient's skin is warm and dry. Respiratory: Respiratory effort is even, unlabored, Respiratory pattern is regular, symmetrical. GI: Abdomen is non-distended. Derm: Skin is intact, is healthy with good turgor. Musculoskeletal: Range of motion: intact in all extremities. 17:00 Reassessment: pt walking in the hallway, pulled out his IV, bleeding controlled, iw dressing placed, pt states he is leaving, walked out of dept with steady gait. 17:12 Reassessment: Patient appears in no apparent distress at this time. iw Vital Signs: 15:51 BP 101 / 55; Pulse 84; Resp 16; Temp 97.5; Pulse Ox 95% on R/A; iw Mariia Coma Score: 17:01 Eye Response: spontaneous(4). Motor Response: obeys commands(6). Verbal Response: bridgette oriented(5). Total: 15. ED Course: 15:49 Patient arrived in ED. iw 15:50 Marita Hernandez, RN is Primary Nurse. iw 15:51 Triage completed. iw 15:52 Arm band placed on. iw 15:54 Deandre Mckeon MD is Attending Physician. bridgette 16:00 Initial lab(s) drawn, by wi, sent to lab. Urine collected: clean catch specimen, clear. iw Inserted saline lock: 20 gauge in right in left Blood collected. 16:33 XRAY Chest (1 view) In Process Unspecified. EDMS 16:37 CT Head Brain wo Cont In Process Unspecified. EDMS 17:10 Manav Paz MD is Referral Physician. bridgette 17:13 No provider procedures requiring assistance completed. IV discontinued, intact, iw bleeding controlled, No redness/swelling at site. Pressure dressing applied. Administered Medications: 19:07 Not Given (Patient Eloped): ns 0.9% 1000 ml IV at 1 bolus Per protocol; 1000 mL bolus iw 19:07 Not Given (Patient Eloped): [id number] mg IV at bolus once iw Medication: 17:13 VIS not applicable for this client. iw Outcome: 17:13 Discharge ordered by . bridgette 17:14 Discharged to home ambulatory, iw 17:14 Condition: good 17:14 Discharge instructions given to pt left prior to d/c instructions 17:14 Patient left the ED. iw Signatures: Dispatcher [employer] Deandre Gonzales MD MD cha Williams, Irene, RN RN iw
--- NOTE | 2023-09-27 17:14 | EDPHYS ---
Physician Documentation [facility] Name: Walt Velazquez Age: 52 yrs Sex: Male : 1970 Arrival Date: 09/27/2023 Time: 15:47 Bed External Waiting Private MD: JANA Physician Deandre Mckeon HPI: 09/26 17:01 This 52 yrs old Male presents to ER via EMS with complaints of possible bridgette seizure. 17:01 The patient presents after having a single isolated seizure, that lasted an unknown bridgette period of time. Character of seizure(s): Loss of consciousness: it is not known if the patient experienced loss of consciousness, Motor activity: the motor activity is unknown, Incontinence: none, Apnea: the patient did not experience apnea, Circulation: the patient did not experience evidence of pulse disturbance. Seizure onset: the onset is not known. Context: the seizure(s) was witnessed, by a bystander, occurred on a street or driveway. Seizure Hx: Usual frequency: irregular frequency. Associated injury: The patient did not suffer any apparent associated injury. Current symptoms: Currently, the patient is not experiencing any symptoms, the patient feels back to baseline. The patient has experienced similar episodes in the past, multiple times. Historical: - Allergies: 15:51 Trazodone; iw - PMHx: 15:51 Alcoholism; Bipolar II; Hypertensive disorder; Parkinsons; Seizure; iw - Immunization history:: Adult Immunizations up to date. - Family history:: not pertinent. ROS: 17:01 Constitutional: Negative for fever, chills, and weight loss, Eyes: Negative for injury, bridgette pain, redness, and discharge, ENT: Negative for injury, pain, and discharge, Neck: Negative for injury, pain, and swelling, Cardiovascular: Negative for chest pain, palpitations, and edema, Respiratory: Negative for shortness of breath, cough, wheezing, and pleuritic chest pain, Abdomen/GI: Negative for abdominal pain, nausea, vomiting, diarrhea, and constipation, Back: Negative for injury and pain, : Negative for injury, bleeding, discharge, and swelling, MS/Extremity: Negative for injury and deformity, Skin: Negative for injury, rash, and discoloration, Psych: Negative for depression, anxiety, suicide ideation, homicidal ideation, and hallucinations, Allergy/Immunology: Negative for hives, rash, and allergies, Endocrine: Negative for neck swelling, polydipsia, polyuria, polyphagia, and marked weight changes, Hematologic/Lymphatic: Negative for swollen nodes, abnormal bleeding, and unusual bruising, 17:01 Neuro: Positive for weakness, Exam: 17:01 Constitutional: This is a well developed, well nourished patient who is awake, alert, bridgette and in no acute distress. Head/Face: Normocephalic, atraumatic. Eyes: Pupils equal round and reactive to light, extra-ocular motions intact. Lids and lashes normal. Conjunctiva and sclera are non-icteric and not injected. Cornea within normal limits. Periorbital areas with no swelling, redness, or edema. ENT: Nares patent. No nasal discharge, no septal abnormalities noted. Tympanic membranes are normal and external auditory canals are clear. Oropharynx with no redness, swelling, or masses, exudates, or evidence of obstruction, uvula midline. Mucous membranes moist. Neck: Trachea midline, no thyromegaly or masses palpated, and no cervical lymphadenopathy. Supple, full range of motion without nuchal rigidity, or vertebral point tenderness. No Meningismus. Chest/axilla: Normal chest wall appearance and motion. Nontender with no deformity. No lesions are appreciated. Cardiovascular: Regular rate and rhythm with a normal S1 and S2. No gallops, murmurs, or rubs. Normal PMI, no JVD. No pulse deficits. Respiratory: Lungs have equal breath sounds bilaterally, clear to auscultation and percussion. No rales, rhonchi or wheezes noted. No increased work of breathing, no retractions or nasal flaring. Abdomen/GI: Soft, non-tender, with normal bowel sounds. No distension or tympany. No guarding or rebound. No evidence of tenderness throughout. Back: No spinal tenderness. No costovertebral tenderness. Full range of motion. Male : Normal genitalia with no discharge or lesions. Skin: Warm, dry with normal turgor. Normal color with no rashes, no lesions, and no evidence of cellulitis. MS/ Extremity: Pulses equal, no cyanosis. Neurovascular intact. Full, normal range of motion. Psych: Awake, alert, with orientation to person, place and time. Behavior, mood, and affect are within normal limits. 17:01 Neuro: Orientation: appropriate for stated age, Mentation: no acute changes, per EMS, per family, Memory: no acute changes, per EMS, per family, Cranial nerves: is grossly normal based on the patient's age, no acute changes, Gait: is unsteady, shuffling, NO CHANGES. Vital Signs: 15:51 BP 101 / 55; Pulse 84; Resp 16; Temp 97.5; Pulse Ox 95% on R/A; iw Steele Coma Score: 17:01 Eye Response: spontaneous(4). Motor Response: obeys commands(6). Verbal Response: bridgette oriented(5). Total: 15. MDM: 15:54 Patient medically screened. bridgette 17:06 Differential diagnosis: cerebral vascular accident, drug overdose, cardiac arrhythmia, bridgette seizure, TIA. Data reviewed: vital signs, nurses notes, lab test result(s). Consideration of Admission/Observation Escalation of care including admission/observation considered. I considered the following discharge prescriptions or medication management in the emergency department Medications were administered in the Emergency Department. See MAR. Independent interpretation of the following test(s) in the Emergency Department. Test considered but Not performed: MRI: NO MRI BRAIN. Historians other than the Patient: EMS: EMS WELL INFORMED. Care significantly affected by the following chronic conditions: Hypertension, P[place], ALCOHOLISM, BIPOLAR, SEIZURE DO. Counseling: I had a detailed discussion with the patient and/or guardian regarding the historical points, exam findings, and any diagnostic results supporting the discharge/admit diagnosis, lab results, radiology results, the need for outpatient follow up, for definitive care, a family practitioner, a neurologist. ED course: PT ALERT AND ORIENTED X 4 REFUSED TO STAY, LEFT AGAINST MEDICAL ADVICE. 09/26 16:00 Order name: Basic Metabolic Panel 09/26 16:00 Order name: CBC with Diff 09/26 16:00 Order name: LFT's 09/26 16:00 Order name: Magnesium 09/26 16:00 Order name: NT PRO-BNP 09/26 16:00 Order name: PT-INR; Complete Time: 16:59 09/26 16:00 Order name: Troponin HS 09/26 16:00 Order name: Acetaminophen 09/26 16:00 Order name: ETOH Level 09/26 16:00 Order name: Ptt, Activated; Complete Time: 16:59 [facility] 09/26 16:00 Order name: Salicylate; Complete Time: 17:09 [facility] 09/26 16:00 Order name: Urinalysis w/ reflexes; Complete Time: 17:09 [facility] 09/26 16:00 Order name: Urine Drug Screen; Complete Time: 17:09 [facility] 09/26 16:00 Order name: Dilantin [facility] 09/26 16:00 Order name: XRAY Chest (1 view); Complete Time: 16:59 [facility] 09/26 16:00 Order name: CT Head Brain wo Cont; Complete Time: 16:59 [facility] 09/26 16:00 Order name: Cardiac monitoring [facility] 09/26 16:00 Order name: EKG - Nurse/Tech [facility] 09/26 16:00 Order name: IV Saline Lock; Complete Time: 16:45 [facility] 09/26 16:00 Order name: Labs collected and sent; Complete Time: 16:45 [facility] 09/26 16:00 Order name: O2 Per Protocol; Complete Time: 16:45 [facility] 09/26 16:00 Order name: O2 Sat Monitoring [facility] 09/26 16:00 Order name: Seizure Precautions bridgette Administered Medications: 19:07 Not Given (Patient Eloped): ns 0.9% 1000 ml IV at 1 bolus Per protocol; 1000 mL bolus iw 19:07 Not Given (Patient Eloped): [id number] mg IV at bolus once iw Disposition Summary: 09/27/23 17:13 Discharge Ordered Notes: Location: Home bridgette Problem: new bridgette Symptoms: have improved bridgette Condition: Stable bridgette Diagnosis - Epileptic seizures related to external causes, not intractable bridgette - Alcohol abuse with other alcohol-induced disorders bridgette - Parkinson's disease bridgette Followup: bridgette - With: Private Physician - When: 2 - 3 days - Reason: Recheck today's complaints, Continuance of care, Re-evaluation by your physician Followup: bridgette - With: Manav Paz MD - When: 2 - 3 days - Reason: Recheck today's complaints, Re-evaluation by your physician Discharge Instructions: - Discharge Summary Sheet bridgette - Alcohol Use Disorder bridgette - Parkinson's Disease bridgette - Seizure, Adult bridgette - Seizure, Adult, [id number] bridgette - Alcoholic Liver Disease bridgette - Parkinson's Disease, [id number] bridgette - Alcohol Abuse and Dependence Information, Adult bridgette Forms: - Medication Reconciliation Form bridgette - Thank You Letter bridgette - Antibiotic Education bridgette - Prescription Opioid Use bridgette - Patient Portal Instructions bridgette - Leadership Thank You Letter [facility] Signatures: Dispatcher [employer] EDDeandre Castrejon MD MD cha Williams, Irene RN RN iw Corrections: (The following items were deleted from the chart) 16:00 16:00 Head Brain Wo [id number].[id number] ordered. EDMS EDMS
[2023-09-27 17:15] LABS: ALT/SGPT 54 U/L (16-61); AST/SGOT 139 U/L (15-37); Albumin 3.5 g/dL (3.4-5.0); Albumin/Globulin Ratio 0.9 (1.1-1.8); Alkaline Phosphatase 116 U/L (45-117); Anion Gap 10.6 mEq/L (5.0-15.0); BUN Blood Urea Nitrogen 8 mg/dL (7-18); Bicarbonate 27 mEq/L (21-32); Bilirubin Direct 0.2 mg/dL (0-0.2); Bilirubin Indirect, Calculated 0.3 mg/dL (0.2-0.8); Bilirubin Total 0.5 mg/dL (0.2-1.0); Globulin 3.7 g/dL (2.3-3.5); Glomerular Filtration Rate 109 ml/min (=/>90); Glucose Level 148 mg/dL (74-106); Magnesium 2.3 mg/dL (1.6-2.4); NT PRO-BNP 12 pg/mL (<125); Potassium 3.6 mEq/L (3.5-5.1); Protein, Total 7.2 g/dL (6.4-8.2); Sodium Level 134 mEq/L (136-145)
[2023-09-27 17:17] LABS: Phenytoin (Dilantin) Level < 0.5 mcg/mL (10.0-20.0)
[2023-09-27 18:38] LABS: Blood Morphology Comment NOT SEEN (NOT SEEN); Platelet Estimate DECR; White Blood Cell Scan OK (OK)
[2023-09-28 00:21] VITALS: BP 101/55; TEMP 97.5; O2SAT 95
== END 2023-09-27 17:14 | disposition home or self-care (01) ==
LOC: ER 15:47
DX: G40.509 Epileptic seizures related to external causes, not intractable, without status epilepticus (principal); F10.288 Alcohol dependence with other alcohol-induced disorder; G20.A1 Parkinson's disease without dyskinesia, without mention of fluctuations
CPT/HCPCS: 36415; 70450; 71045; 80048; 80076; 80143; 80179; 80185; 80307; 81001; 82077; 83735; 83880; 84484; 85025; 85610; 85730; 99284

== ENCOUNTER 2023-09-28 11:47 | Emergency (ER) | payer SELFPAY ==
--- OUTSIDE RECORDS SUMMARY | 2023-09-28 11:54 | XMS REPORT | Continuity of Care Document ---
Author Name Unknown Address [address] [facility] [place] [address] [facility] Address [address] [facility] [place] [address] Care Team Providers Care Tax Preparer Name Role Phone Pcp-None Primary Care Physician Unavailab HEMANT Adame Attending Clinician Unavailable Hemant Klein MD Attending Clinician [phone] Pan Pinto Attending Clinician Unavailab JESSICA Gallardo Attending Clinician Unavailable Rayray Driscoll MD Attending Clinician [phone] Jessica Prado MD Attending Clinician [phone] Oswald Murphy MD Attending Clinician [phone] DIYA CHOWDHURY Attending Clinician Unavailab Diya Mackey DO Attending Clinician [phone] Fidel Cuellar Attending Clinician Unavailable DIRK YARBROUGH Attending Clinician Unavailable Leticia Rowland Attending Clinician [phone] Dirk Yarbrough MD Attending Clinician [phone] Faye Portillo LVN Attending Clinician [phone] Pia Reddy Attending Clinician [phone] Vinnie Navarro Attending Clinician Unavailable OSWALD MURPHY Admitting Clinician Unavailable Oswald Murphy MD Admitting Clinician [phone] DIYA CHOWDHURY Admitting Clinician UnavailLeticia Gaytan Admitting Clinician Unavailable JESSICA PRADO Admitting Clinician Unavailable Jessica Prado MD Admitting Clinician [phone] Payers Payer Name Policy Type Policy Number Effective Date Expirati on Date Source [facility] [id number] 2022 00:00:00 Problems Condition Name Condition Details Condition Category Status Onset Date Resolution Date Last Treatment Date Treating Clinician Comments Source Alcohol withdrawal syndrome with complicati on Alcohol withdrawal syndrome with complicati on Disease Active 08-10 00:00: 00 [facility] Type 2 diabetes mellitus with other specified complicati on Type 2 diabetes mellitus with other specified complicati on Disease Active 12-29 00:00: 00 [facility] Dyslipidem ia Dyslipidem ia Disease Active 12-29 00:00: 00 [facility] Chest pain, unspecifie d type Chest pain, unspecifie d type Disease Active 12-28 00:00: 00 [facility] Priapism Priapism Disease Active 2013-06 1-06 00:00: 00 [facility] Allergies, Adverse Reactions, Alerts Allergy Name Allergy Type Status Severity Reaction(s) Onset Date Inactive Date Treating Clinician Comments Source No Known Drug Allergie s DA Active U 4-25 00:00: 00 [facility] No Known Drug Allergie s DA Active U 0 9-16 00:00: 00 [facility] No Known Drug Allergie s DA Active U 0 3-29 00:00: 00 [facility] No Known Drug Allergie s DA Active U 2019-06 2-16 00:00: 00 [facility] No Known Drug Allergie s DA Active U 2019-06 2-15 00:00: 00 [facility] No Known Drug Allergie s DA Active U 2019-06 2-02 00:00: 00 [facility] Trazodon e Propensi ty to adverse reaction s Active Other - See comments 10-06 00:00: 00 [facility] TRAZODON E DRUG INGREDI Active Other-Cmnt 10-06 00:00: 00 [facility] Social History Social Habit Start Date Stop Date Quantity Comments Source History of tobacco use Cigarette Smoker [facility] Exposure to SARS-CoV-2 (event) 2022-11-01 00:00:00 2022-11-11 13:57:00 Not sure [facility] Tobacco use and exposure 2022-08-10 00:00:00 2022-08-10 00:00:00 User of smokeless tobacco [facility] Alcohol intake 2022-08-10 00:00:00 2022-08-10 00:00:00 Current drinker of alcohol (finding) [facility] Tobacco Comment 2022-08-10 00:00:00 2022-08-10 00:00:00 1/2 a pack a day [facility] Sex Ass[birth year] At 1970 00:00:00 1970 00:00:00 [facility] Smoking Status Start Date Stop Date Source Smokes tobacco daily 2022-08-10 00:00:00 [facility] Medications Ordered Medication Name Filled Medication Name Start Date Stop Date Current Medication? Ordering Clinician Indication Dosage Frequency Signature (SIG) Comments Components Source NaCl 0.9% (NS) bolus infusion 1,000 mL 11-11 19:45: 00 11-11 20:23 :00 No 1000mL at 999 mL/hr, 1,000 mL, IV Piggyback, ONCE, 1 dose, On Thu11/11/22 at 1445, STAT [facility] multivitami n tablet 1 tablet 08-12 15:00: 00 Yes 1{tbl} 1 tablet, Oral, DAILY, First dose on Thu08/12/22 at 0900, Until Discontinu ed, Routine [facility] foLIC acid (FOLATE) tablet 1 mg 08-12 15:00: 00 Yes 1mg 1 mg, Oral, DAILY, First dose on Thu08/12/22 at 0900, Until Discontinu ed, Routine [facility] foLIC acid 1 mg tablet 08-12 00:00: 00 09-12 04:59 :00 No [id number] 1mg Take 1 tablet by mouth in the morning for 30 days. [facility] oxazepam (SERAX) capsule 15 mg [...] Thu08/13/22 at 0600, Routine [Order 2 End] [facility] thiamine (VITAMIN B1) tablet 100 mg 08-11 16:15: 00 Yes 100mg 100 mg, Oral, DAILY, First dose on Thu08/11/22 at 1015, Until Discontinu ed, Routine [facility] enoxaparin (LOVENOX) injection 40 mg 08-10 23:00: 00 Yes 40mg 40 mg, Subcutaneo us, DAILY, First dose on Thu08/10/22 at 1700, Until Discontinu ed, Routine [facility] NaCl 0.9% (NS) IV infusion 1,000 mL 08-10 15:00: 00 Yes 1000mL at 125 mL/hr, IV Infusion, CONTINUOUS , Starting on Thu08/10/22 at 0900, Until Discontinu ed, Routine [facility] foLIC acid (FOLATE) 5 mg in NaCl 0.9% (NS) piggyback 08-10 15:00: 00 08-11 16:14 :47 No 5mg IV Piggyback, DAILY, First dose on Thu08/10/22 at 0900, Until Discontinu ed, 50 mL [facility] thiamine (VITAMIN B1) 100 mg in NaCl 0.9% (NS) piggyback 08-10 15:00: 00 08-10 16:08 :00 No 100mg IV Piggyback, DAILY, 1 dose, First dose on Thu08/10/22 at 0900, 50 mL [facility] LORazepam (ATIVAN) injection 2 mg 08-10 14:52: 57 Yes 2mg 2 mg, Slow IV Push, Q4HPRN, Starting on 08/10/22 at 0852, Until Discontinu ed, Routine, Seizures, Agitation, Anxiety [facility] Sliding Scale Insulin-Reg ular + Fsbg Testing 08-10 13:30: 00 Yes Subcutaneo us, AC+HS, First dose on Thu08/10/22 at 0730, Until Discontinu ed, Routine [facility] oxazepam (SERAX) capsule 15 mg 08-10 12:08: 05 Yes 15mg 15 mg, Oral, Q4HPRN, Starting on 08/10/22 at 0608, Until Discontinu ed, Routine, Only while awake for DBP equal to or greater than 100, HR equal to or greater than 100. [facility] dextrose 10% (D10W) bolus infusion [...] unable to swallow or has mental changes. [facility] ondansetron (ZOFRAN (PF)) injection 4 mg 08-10 12:02: 53 Yes 4mg 4 mg, Slow IV Push, Q6HPRN, Starting on Thu08/10/22 at 0602, Until Discontinu ed, Routine, Nausea and Vomiting (N/V) [facility] ibuprofen (MOTRIN IB) tablet 200 mg 08-10 12:02: 45 Yes 200mg 200 mg, Oral, Q6HPRN, Starting on Thu08/10/22 at 0602, Until Discontinu ed, Routine, Pain (scale 1-3) [facility] NaCl 0.9% (NS) bolus infusion 1,000 mL 08-10 10:15: 00 08-10 13:00 :00 No 1000mL at 999 mL/hr, 1,000 mL, IV Infusion, ONCE, 1 dose, On Thu08/10/22 at 0415, STAT [facility] LORazepam (ATIVAN) injection 0.5 mg 08-10 09:15: 00 08-10 09:19 :00 No .5mg 0.5 mg, Slow IV Push, ONCE, 1 dose, On Thu08/10/22 at 0315, STAT [facility] LORazepam (ATIVAN) injection 1 mg 08-10 08:00: 00 08-10 07:05 :00 No 1mg 1 mg, Slow IV Push, ONCE NOW, 1 dose, On Thu08/10/22 at 0200, STAT [facility] thiamine (VITAMIN B1) injection 100 mg 08-10 06:45: 00 08-10 06:52 :00 No 100mg 100 mg, Intravenou s, ONCE, 1 dose, On 08/10/22 at 0045, JACIEL [facility] LORazepam (ATIVAN) injection 1 mg 08-10 05:15: 00 08-10 05:22 :00 No 1mg 1 mg, Slow IV Push, ONCE, 1 dose, On 08/09/22 at 2315, STAT [facility] ketorolac (TORADOL) injection 15 mg 2021-06 16:00: 00 04-06 14:50 :00 No 15mg 15 mg, Slow IV Push, ONCE, 1 dose, On 04/06/22 at 1100, [facility] ondansetron (ZOFRAN (PF)) injection 4 mg 2021-06 15:45: 00 04-06 14:50 :00 No 4mg 4 mg, Slow IV Push, ONCE, 1 dose, On 04/06/22 at 1045, [facility] oxazepam (SERAX) capsule 15 mg 12-31 06:28: 17 01-01 06:29 :00 No 15mg 15 mg, Oral, Q12H TAPER, 2 doses, First dose on Thu12/31/21 at 0130, Last dose on Thu12/31/21 at 1330, Routine [facility] multivitami n tablet 12-31 00:00: 00 Yes [id number] 1{tbl} Take 1 tablet by mouth in the morning. [facility] thiamine 100 mg tablet 12-31 00:00: 00 Yes [id number] 100mg Take 1 tablet by mouth in the morning. [facility] aspirin 81 mg chewable tablet 12-31 00:00: 00 Yes [id number] 81mg Take 1 tablet by mouth in the morning. [facility] foLIC acid 1 mg tablet 12-31 00:00: 00 01-31 04:59 :00 No [id number] 1mg Take 1 tablet by mouth in the morning for 30 days. [facility] metFORMIN 500 mg tablet 12-30 00:00: 00 Yes [id number] 500mg Take 1 tablet by mouth in the morning and 1 tablet in the evening. Take with meals. [facility] aspirin chewable tablet 81 mg 12-29 14:00: 00 Yes 81mg 81 mg, Oral, DAILY, First dose on 12/29/21 at 0900, Until Discontinu ed, Routine [facility] sulfur hexafluorid e microsphr (LUMASON) injection 5 mL 12-29 13:45: 00 12-29 13:45 :00 No [id number] 5mL 5 mL, Intravenou s, ONCE, 1 dose, On 12/29/21 at 0845, Routine
cafe team member approving Restricted medication : STEFANIE GORMAN [facility] enoxaparin (LOVENOX) injection 40 mg 12-29 13:00: 00 Yes 40mg 40 mg, Subcutaneo us, Q24H, First dose on 12/29/21 at 0800, Until Discontinu ed, Routine [facility] Sliding Scale Insulin - Lispro (HumaLOG) + Fsbg Testing 12-29 13:00: 00 Yes Subcutaneo us, TID MEALS+HS, First dose on 12/29/21 at 0800, Until Discontinu ed, Routine [facility] diazePAM (VALIUM) injection 10 mg 12-29 05:30: 00 12-29 04:40 :00 No 10mg 10 mg, Intravenou s, ONCE, 1 dose, On 12/29/21 at 0030, Routine [facility] diazePAM (VALIUM) injection 10 mg 12-29 04:15: 00 12-29 03:17 :00 No 10mg 10 mg, Intravenou s, ONCE, 1 dose, On 12/28/21 at 2315, Routine [facility] diazePAM (VALIUM) injection 5 mg 12-29 03:45: 01 Yes 5mg 5 mg, Intravenou s, QIDPRN, Starting on 12/28/21 at 2245, Until Discontinu ed, Routine, Seizures, Agitation [facility] foLIC acid (FOLATE) tablet 1 mg 12-29 03:45: 00 Yes 1mg 1 mg, Oral, DAILY, First dose on 12/28/21 at 2245, Until Discontinu ed, Routine [facility] thiamine (VITAMIN B1) tablet 100 mg 12-29 03:45: 00 Yes 100mg 100 mg, Oral, DAILY, First dose (after last modificati on) on 12/28/21 at 2245, Until Discontinu ed, Routine [facility] glucagon (GLUCAGEN DIAGNOSTIC KIT) injection 1 mg 12-29 03:42: 19 Yes 1mg 1 mg, Intramuscu lar, PRN, Starting on 12/28/21 at 2242, Until Discontinu ed, JACIEL, Blood Glucose < or = 70 mg/dL and patient is unable to swallow or has mental changes. [facility] dextrose 10% (D10W) bolus infusion [...] blood glucose is < 80 mg/dL, repeat.
[facility] LORazepam (ATIVAN) injection 1 mg 12-29 03:30: 00 12-29 02:32 :00 No 1mg 1 mg, Intravenou s, ONCE, 1 dose, On 12/28/21 at 2230, Routine
Is the medication being used for status epilepticu s? No [facility] oxazepam (SERAX) capsule 15 mg 12-29 00:28: 20 Yes 15mg 15 mg, Oral, Q4HPRN, Starting on 12/28/21 at 1928, Until Discontinu ed, Routine, Only while awake for DBP equal to or greater than 100, HR equal to or greater than 100. [facility] ondansetron (ZOFRAN (PF)) injection 4 mg 12-29 00:23: 47 Yes 4mg 4 mg, Slow IV Push, Q6HPRN, Starting on 12/28/21 at 1923, Until Discontinu ed, Routine, Nausea and Vomiting (N/V) [facility] acetaminoph en (TYLENOL) tablet 650 mg 12-29 00:23: 37 Yes 650mg 650 mg, Oral, Q6HPRN, Starting on 12/28/21 at 192, Until Discontinu ed, Routine, Pain (scale 1-3), Temp > 38.5 C [facility] chlordiazeP OXIDE (LIBRIUM) capsule 25 mg 12-28 23:15: 00 12-28 23:24 :00 No 25mg 25 mg, Oral, ONCE, 1 dose, On 12/28/21 at 1815, [facility] NaCl 0.9% (NS) bolus infusion 2,000 mL 12-28 22:45: 00 12-28 23:18 :00 No 2000mL at 999 mL/hr, 2,000 mL, IV Infusion, ONCE, 1 dose, On 12/28/21 at 1745, [facility] LORazepam (ATIVAN) injection 1 mg 12-28 20:45: 00 12-28 20:49 :00 No 1mg 1 mg, Slow IV Push, ONCE, 1 dose, On 12/28/21 at 1545, STAT
Is the medication being used for status epilepticu s? No [facility] acetaminoph en (TYLENOL) 500 mg tablet 17 00:00: 00 Yes 500mg Take 1 Tab by mouth every 6 (six) hours as needed for Pain. [facility] Vital Signs Vital Name Observation Time Observation Value Comments Veronica xiong Systolic blood pressure 2022-11-11 20:31:31 116 mm[Hg] [facility] Diastolic blood pressure 2022-11-11 20:31:31 77 mm[Hg] [facility] Heart rate 2022-11-11 20:31:31 84 /min [facility] Respiratory rate 2022-11-11 20:31:31 12 /min [facility] Oxygen saturation in Arterial blood by Pulse oximetry 2022-11-11 20:31:31 90 /min [facility] Body temperature 2022-11-11 18:49:00 37.11 Theresa [facility] Body height 2022-11-11 18:49:00 160 cm [facility] Body weight 2022-11-11 18:49:00 68.04 kg [facility] BMI 2022-11-11 18:49:00 26.57 kg/m2 [facility] Body temperature 2022-08-11 14:00:00 36.5 Theresa [facility] Systolic blood pressure 2022-08-11 10:00:00 116 mm[Hg] [facility] Diastolic blood pressure 2022-08-11 10:00:00 71 mm[Hg] [facility] Heart rate 2022-08-11 10:00:00 70 /min [facility] Respiratory rate 2022-08-11 10:00:00 16 /min [facility] Body weight 2022-08-11 10:00:00 65.499 kg [facility] BMI 2022-08-11 10:00:00 25.58 kg/m2 [facility] Oxygen saturation in Arterial blood by Pulse oximetry 2022-08-11 10:00:00 100 /min [facility] Body height 2022-08-10 22:12:00 160 cm [facility] Systolic blood pressure 2022-04-06 16:00:00 125 mm[Hg] [facility] Diastolic blood pressure 2022-04-06 16:00:00 75 mm[Hg] [facility] Heart rate 2022-04-06 16:00:00 87 /min [facility] Respiratory rate 2022-04-06 16:00:00 22 /min [facility] Oxygen saturation in Arterial blood by Pulse oximetry 2022-04-06 16:00:00 98 /min [facility] Body temperature 2022-04-06 14:41:00 37 Theresa [facility] Body height 2022-04-06 14:41:00 160 cm [facility] Body weight 2022-04-06 14:41:00 63.504 kg [facility] BMI 2022-04-06 14:41:00 24.80 kg/m2 [facility] Systolic blood pressure 2022-01-20 02:27:00 121 mm[Hg] [facility] Diastolic blood pressure 2022-01-20 02:27:00 75 mm[Hg] [facility] Heart rate 2022-01-20 02:27:00 79 /min [facility] Respiratory rate 2022-01-20 02:27:00 12 /min [facility] Oxygen saturation in Arterial blood by Pulse oximetry 2022-01-20 02:27:00 98 /min [facility] Body temperature 2022-01-19 22:19:00 36.44 Theresa [facility] Body weight 2022-01-19 22:19:00 60.328 kg [facility] BMI 2022-01-19 22:19:00 23.56 kg/m2 [facility] Systolic blood pressure 2021-12-30 20:52:00 134 mm[Hg] [facility] Diastolic blood pressure 2021-12-30 20:52:00 76 mm[Hg] [facility] Heart rate 2021-12-30 20:52:00 67 /min [facility] Body temperature 2021-12-30 20:26:00 36.67 Theresa [facility] Oxygen saturation in Arterial blood by Pulse oximetry 2021-12-30 20:26:00 99 /min [facility] Respiratory rate 2021-12-30 16:21:00 18 /min [facility] Body weight 2021-12-30 08:27:00 60.464 kg [facility] BMI 2021-12-30 08:27:00 23.61 kg/m2 [facility] Body height 2021-12-29 01:29:00 160 cm [facility] Procedures Procedure Date / Time Performed Performing Clinician Source MAGNESIUM 2022-11-11 19:05:00 Hemant Klein [facility] BASIC METABOLIC PANEL (NA, K, CL, CO2, GLUCOSE, BUN, CREATININE, CA) 2022-11-11 19:05:00 Hemant Klein [facility] ETHANOL 2022-11-11 19:05:00 Hemant Klein [facility] CBC WITH DIFF 2022-11-11 19:05:00 Hemant Klein [facility] POCT GLUCOSE (AUTOMATED) 2022-08-11 13:36:00 Arvind Prado [facility] PHOSPHORUS 2022-08-11 10:35:00 Jessica Prado [facility] MAGNESIUM 2022-08-11 10:35:00 Eve [facility] AMMONIA, PLASMA 2022-08-11 10:35:00 Jessica Prado [facility] COMP. METABOLIC PANEL ([id number]) 2022-08-11 10:35:00 Jessica Prado [facility] CBC WITH DIFF 2022-08-11 10:35:[address] [facility] POCT GLUCOSE (AUTOMATED) 2022-08-11 02:15:00 Arvind Prado [facility] POCT GLUCOSE (AUTOMATED) 2022-08-10 23:10:00 Arvind Prado [facility] POCT GLUCOSE (AUTOMATED) 2022-08-10 18:20:00 Arvind Prado [facility] POCT GLUCOSE (AUTOMATED) 2022-08-10 14:11:00 Arvind Prado [facility] POCT GLUCOSE (AUTOMATED) 2022-08-10 10:59:00 Gopal Driscoll [facility] COVID-19 (ID NOW RAPID TESTING) 2022-08-10 07:17:00 Rayray Driscoll [facility] LAB ONLY COVID INTERPRETATION 2022-08-10 07:17:00 Rayray Driscoll [facility] HB ECG ROUTINE & RHYTHM STRIP 2022-08-10 06:03:48 Rayray Driscoll [facility] URINALYSIS 2022-08-10 05:46:00 Rayray Driscoll [facility] URINE DRUG (IMMUNOASSAY) - COMPREHENSIVE DRUG SCREEN W/O REFLEX 2022-08-10 05:45:00 Rayray Driscoll [facility] CREATINE KINASE 2022-08-10 05:16:00 [facility] 2022-08-10 05:16:[address] [facility] MAGNESIUM 2022-08-10 05:16:[address] [facility] TROPONIN I 2022-08-10 05:16:[address] [facility] COMP. METABOLIC PANEL ([id number]) 2022-08-10 05:16:00 Rayray Driscoll [facility] ETHANOL 2022-08-10 05:16:[address] [facility] CBC WITH DIFF 2022-08-10 05:16:00 Rayray Driscoll [facility] N-TERMINAL PRO-BNP 2022-08-10 05:16:00 Rayray Driscoll [facility] CRITICAL CARE 2022-08-10 04:52:00 Rayray Driscoll [facility] XR CHEST 1 VW 2022-04-06 14:51:50 [facility] LIP[facility] 2022-04-06 14:42:00 [facility] TROPONIN I 2022-04-06 14:42:00 Diya Chowdhury [facility] COMP. METABOLIC PANEL ([id number]) 2022-04-06 14:42:00 Diya Chowdhury [facility] CBC WITH DIFF 2022-04-06 14:42:00 [facility] PROTHROMBIN TIME / INR 2022-04-06 14:42:00 Diya Chowdhury [facility] ACTIVATED PARTIAL THRMPLAS NELDA 2022-04-06 14:42:00 Diya Chowdhury [facility] LACTIC ACID WHOLE BLOOD 2022-01-20 00:22:00 Leticia Baldwin [facility] URINE DRUG (IMMUNOASSAY) - COMPREHENSIVE DRUG SCREEN 2022-01-19 23:10:00 Leticia Baldwin [facility] URINALYSIS 2022-01-19 23:10:00 Leticia Baldwin [facility] TROPONIN I 2022-01-19 23:00:00 Leticia Baldwin [facility] COMP. METABOLIC PANEL ([id number]) 2022-01-19 23:00:00 Leticia Baldwin [facility] LITHIUM 2022-01-19 23:00:00 Leticia Baldwin [facility] ETHANOL 2022-01-19 23:00:00 Leticia Baldwin [facility] CBC WITH DIFF 2022-01-19 23:00:00 Leticia Baldwin [facility] COVID-19 (ID NOW RAPID TESTING) 2022-01-19 23:00:00 Leticia Baldwin [facility] CT HEAD WO CONTRAST 2022-01-19 22:49:00 Leticia Baldwin [facility] XR CHEST 1 VW 2022-01-19 22:41:00 Leticia Baldwin [facility] POCT GLUCOSE (AUTOMATED) 2022-01-19 22:25:00 Leticia Baldwin [facility] POCT GLUCOSE (AUTOMATED) 2021-12-30 21:55:00 Arvind Prado [facility] POCT GLUCOSE (AUTOMATED) 2021-12-30 16:21:00 Arvind Prado [facility] POCT GLUCOSE (AUTOMATED) 2021-12-30 12:30:00 Arvind Prado [facility] HEPATIC FUNCTION PANEL ([id number]) (ALB,T.PRO,BILI T,BU/BC,ALT,AST,ALK PHOS) 2021-12-30 09:28:00 Maira Gaitan [facility] POCT GLUCOSE (AUTOMATED) 2021-12-30 02:11:00 Arvind Prado [facility] POCT GLUCOSE (AUTOMATED) 2021-12-29 21:41:00 Arvind Prado [facility] POCT GLUCOSE (AUTOMATED) 2021-12-29 16:37:00 Arvind Prado [facility] TRANSTHORACIC ECHO (TTE) COMPLETE W/ CONTRAST 2021-12-29 13:05:00 Jessica Prado [facility] POCT GLUCOSE (AUTOMATED) 2021-12-29 12:41:00 Arvind Prado [facility] TROPONIN I 2021-12-29 09:42:00 Jessica Prado [facility] TROPONIN I 2021-12-29 04:55:00 Eve [facility] CT HEAD WO CONTRAST 2021-12-28 21:18:22 Poppy Renteria [facility] AMMONIA, PLASMA 2021-12-28 21:00:00 Pia Renteria [facility] COVID-19 (ID NOW RAPID TESTING) 2021-12-28 20:42:00 Pia Renteria [facility] LAB ONLY COVID INTERPRETATION 2021-12-28 20:42:00 Pia Renteria [facility] URINE DRUG (IMMUNOASSAY) - COMPREHENSIVE DRUG SCREEN W/O REFLEX 2021-12-28 20:42:00 Pia Renteria [facility] URINALYSIS 2021-12-28 20:40:00 Pia Renteria [facility] N-TERMINAL PRO-BNP 2021-12-28 20:40:00 Corina Renteria [facility] TROPONIN I 2021-12-28 20:40:00 Pia Renteria [facility] THYROID STIMULATING HORMONE 2021-12-28 20:40:00 Jessica Prado [facility] COMP. METABOLIC PANEL ([id number]) 2021-12-28 20:40:00 Pia Renteria [facility] LIPID PANEL ([id number])(TOTAL CHOLESTEROL, TRIGLYCERIDES, HDL) 2021-12-28 20:40:00 Demetrius Langford [facility] ETHANOL 2021-12-28 20:40:00 Demetrius Langford [facility] CBC WITH DIFF 2021-12-28 20:40:00 Pia Renteria [facility] GLYCOSYLATED HEMOGLOBIN (A1C) 2021-12-28 20:40:00 Jessica Prado [facility] PROTHROMBIN TIME / INR 2021-12-28 20:40:00 Lesly Renteria [facility] XR CHEST 1 VW 2021-12-28 20:16:00 Pia Renteria [facility] HB ECG ROUTINE & RHYTHM STRIP 2021-12-28 20:04:59 Pia Renteria [facility] Encounters Start Date/Time End Date/Time Encounter Type Admission Type Attending [facility] Care Facility Care Department Encounter ID Source 2021-09-17 16:45:00 Inpatient [facility] [id number] [address] [facility] 2020-06-06 16:07:00 Inpatient [facility] [id number] [facility] 2020-06-06 06:20:00 Inpatient [facility] [id number] [facility] 2020-06-05 19:35:00 Inpatient [facility] [id number] [facility] 2020-05-23 19:53:00 Inpatient [facility] [id number] [facility] 2020-05-23 19:53:00 Inpatient [facility] [id number] [address] [facility] 2022-11-11 13:50:00 2022-11-11 16:07:00 Emergency X HEMANT KLEIN [facility] ERT [id number] [facility] 2022-11-11 13:50:00 2022-11-11 16:07:00 Emergency Jessica, Hemant [facility] 1.2.840.114 350.1.13.10 4.2.7.2.686 [id number] [facility] 2022-10-14 20:59:00 2022-10-14 20:59:00 Emergency [facility] [id number] [address] [facility] 2022-10-14 20:59:00 2022-10-14 20:59:00 Emergency Emergency [place] [facility] [id number] [address] [facility] 2022-08-09 22:59:00 2022-08-11 13:02:00 Outpatient X JESSICA PRADO [facility] [id number] [facility] 2022-08-09 22:59:00 2022-08-11 13:02:00 Emergency Rayray Driscoll Jelani Edionwe, [facility] 1.2.840.114 350.1.13.10 4.2.7.2.686 [id number] [facility] 2022-04-06 09:38:00 2022-04-06 11:42:00 Emergency X DIYA CHOWDHURY [facility] ERT [id number] [facility] 2022-04-06 09:38:00 2022-04-06 11:42:00 Emergency Toddjose l Diya [facility] 1.2.840.114 350.1.13.10 4.2.7.2.686 [id number] [facility] 2022-03-07 12:38:00 2022-03-07 12:38:00 Emergency [facility] [id number] [address] [facility] 2022-03-07 12:38:00 2022-03-07 12:38:00 Emergency Emergency Fidel Cuellar [facility] [id number] [address] [facility] 2022-01-19 17:18:00 2022-01-19 22:00:00 Emergency X NNEKA DIRK [facility] ERT [id number] [facility] 2022-01-19 17:18:00 2022-01-19 22:00:00 Emergency Leticia Baldwinveronica Amado [facility] 1.2.840.114 350.1.13.10 4.2.7.2.686 [id number] [facility] 2021-12-31 00:00:00 2021-12-31 00:00:00 Transition of Care Faye Portillo 1.2.840.114 350.1.13.10 4.2.7.2.686 [id number] [facility] 2021-12-28 14:53:00 2021-12-30 17:42:00 Inpatient X JESSICA PRADO [facility] MARGO [id number] [facility] 2021-12-28 14:53:00 2021-12-30 17:42:00 Hospital Encounter Pia Renteria Jelani [facility] 1.2.840.114 350.1.13.10 4.2.7.2.686 [id number] [facility] 2021-09-17 16:47:00 2021-09-17 16:47:00 Emergency [facility] [id number] [address] [place] [address] 2020-06-06 16:07:00 2020-06-06 16:07:00 Emergency [facility] [id number] [facility] Results Test Description Test Time Test Comments Results Resul t Comments Source ETHANOL 2022-11-11 19:45:56 ALCOHOL<10mg/dL0 11/11/2022 2:[facility] Prgtorit17-218 Toxic>100 Depression of [employer]ELOPMENT>400 [facility] 19:41:47* Test Item Value Reference Range Interpretation Comme nts MAGNESIUM (test code = 9511009965) 1.8 mg/dL 1.7-2.4 Lab Interpretation (test cod e = 09361-7) Normal [facility] WITH [id number] 19:25:26* Test Item Value Reference Range Interpretation [...] 33.9 g/dL 31.2-35.0 RDW-SD (test code = 11804-2) 46.0 fL 38.5-51.6 RDW-CV (test code = 788-0) 13.5 % 12.1-15.4 PLT (test code = 777-3) 237 See_Comment [Automated messa ge] The system which generated this result transmitted reference range: 150 - 328 10*3/?L. The reference range was not used to interpret this result as normal/abnormal. MPV (test code = 74161-1) 8.9 fL 9.8-13.0 L NRBC/100 WBC (test code = 3408891537) 0.0 See_Comment [Automated me ssage] The system which generated this result transmitted reference range: 0.0 - 10.0 /100 WBCs. The reference range was not used to interpret this result as normal/abnormal. NRBC x10^3 (test code = 0555930481) See_Comment [Automated messa ge] The system which generated this result transmitted reference range: 10*3/?L. The reference range was not used to interpret this result as normal/abnormal. GRAN MAT (NEUT) % (test code = 770-8) 71.2 % IMM GRAN % (test code = 5815144902) 0.30 % LYMPH % (test code = 736-9) 18.2 % MONO % (test code = 5905-5) 8.4 % EOS % (test code = 713-8) 1.0 % BASO % (test code = 706-2) 0.9 % GRAN MAT x10^3(ANC) (test code = 8037062831) 4.86 10*3/uL 1.99-6.95 IMM GRAN x10^3 (test code = 7335621571) 0.00-0.06 LYMPH x10^3 (test code = 731-0) 1.24 10*3/uL 1.09-3.23 MONO x10^3 (test code = 742-7) 0.57 10*3/uL 0.36-1.02 EOS x10^3 (test code = 711-2) 0.07 10*3/uL 0.06-0.53 BASO x10^3 (test code = 704-7) 0.06 10*3/uL 0.01-0.09 Lab Interpretation (test code = 54342-5) [facility] Rflx Cult/Zpvdh2797-23-60 22:20:00* Test Item Value Reference Range Interpretation Comme nts Color,Urine (test code = UCOL) Yellow Yellow Clarity,Urine (test code = UCLAR) Clear Clear Ph, Urine (test code = UPH) 7.0 5.0-9.0 N Specific [place],Urine (test code = USG) 1.020 1.005-1.030 N [...] code = ULEU) Negative mg/dL Negative Drug Screen,Mafxt9894-21-06 22:20:00* Test Item Value Reference Range Interpretation [...] UPROP) Negative Negative Complete Blood Count Auto Zvqm9584-83-51 21:21:00* Test Item Value Reference Range Interpretation [...] code = NRBCP) 0 % Comprehensive Metabolic Stzqt7908-49-32 21:21:00* Test Item Value Reference Range Interpretation [...] a race coefficient. Additional information canbe found at:[email or web address]_[email or web address] 5.[email or web address] ([email or web address]) [Automated message] The system [...] = ALP) 134 U/L 46-116 H Ethanol Aosmw4744-92-41 21:21:00* Test Item Value Reference Range Interpretation Comme nts Ethanol (test code = ETOH) < 3 mg/dL The pharmacologi yudy response to blood alcohol levels mayvary from individual to individual. The fatal concentrationhas been reported to be >400mg/dL. POCT GLUCOSE (AUTOMATED)2022-08-11 13:40:35* Test Item Value Reference Range Interpretation Comme [facility] POCT GLU (test code = 6196010083) 121 mg/dL 70-110 H Lab Interpretation (test cod e = 64302-7) Abnormal [facility] GLUCOSE (AUTOMATED)2022-08-11 02:18:58* Test Item Value Reference Range Interpretation Comme [facility] POCT GLU (test code = 7031808249) 183 mg/dL 70-110 H Lab Interpretation (test cod e = 81765-5) Abnormal [facility] GLUCOSE (AUTOMATED)2022-08-10 23:16:11* Test Item Value Reference Range Interpretation Comme nts POCT GLU (test code = 3162432378) 176 mg/dL 70-110 H Lab Interpretation (test cod e = 65283-4) Abnormal [facility] GLUCOSE (AUTOMATED)2022-08-10 18:22:51* Test Item Value Reference Range Interpretation Comme nts POCT GLU (test code = 3745357026) 165 mg/dL 70-110 H Lab Interpretation (test cod e = 78976-6) Abnormal [facility] GLUCOSE (AUTOMATED)2022-08-10 14:18:05* Test Item Value Reference Range Interpretation Comme nts POCT GLU (test code = 5955436983) 138 mg/dL 70-110 H Lab Interpretation (test cod e = 68511-2) Abnormal [facility] GLUCOSE (AUTOMATED)2022-08-10 11:01:21* Test Item Value Reference Range Interpretation Comme nts POCT GLU (test code = 5589413227) 143 mg/dL 70-110 H Lab Interpretation (test cod e = 91189-9) Abnormal [facility] [id number] 06:51:18* Test Item Value Reference Range Interpretation Comme nts TROPONIN I (test code = 8879057490) 0.008 ng/mL <=0.034 JUAN ALBERTO (test code [...] of biotin. Lab Interpretation (test code = 49135-0) Normal [facility] System[facility]MINAL HQB-[id number] 06:47:37* Test Item Value Reference Range Interpretation Comme nts NT-proBNP (test code = 3049041295) 37 pg/mL <=125 JUAN ALBERTO (test code = JUAN ALBERTO) Biotin has been reported to cause a negative bias, interpret results relative to patient's use of biotin. Lab Interpretation (test code = 59014-2) Normal [facility]2023-[facility]-19 06:25:52 ALCOHOL<10mg/dL08/10/2022 12:25 AM [facility]<10 Ceuyfhlf41-462 Toxic>100 Depression of [employer] DEVELOPMENT>400 Fatalities ReportedUnited [facility] SystemCOMP. METABOLIC PANEL (73019)2022-08-10 06:19:15* Test Item Value Reference Range Interpretation Comme nts NA (test code = 4283952602) 135 mmol/L 135-145 K (test code = 0451772822) 4.3 mmol/L 3.5-5.0 CL (test code = 7201094023) 98 mmol/L 98-108 CO2 TOTAL (test code = 0053397991) 30 mmol/L 23-31 AGAP (test code = 2855476305) 7 2-16 BUN (test code = 7103601042) 11 mg/dL 7-23 GLUCOSE (test code = 2576245044) 153 mg/dL 70-110 H CREATININE (test code = 4670398420) 0.77 mg/dL 0.60-1.25 TOTAL BILI (test code = 6079344291) 0.9 mg/dL 0.1-1.1 CALCIUM (test code = 1400894230) 10.0 mg/dL 8.6-10.6 T PROTEIN (test code = 8856130356) 7.7 g/dL 6.3-8.2 ALBUMIN (test code = 4907519351) 4.6 g/dL 3.5-5.0 ALK PHOS (test code = 0356498514) 92 U/L 34-122 ALTv (test code = 1742-6) 35 U/L 5-50 AST(SGOT) (test code = 1901309052) 42 U/L 13-40 H eGFR (test code = 3391405564) 106.1 mL/min/1.73m2 JUAN ALBERTO (test code = [...] imaging tests). Lab Interpretation (test code = 18532-2) Abnormal [facility]2023-02-19 06:19:15* Test Item Value Reference Range Interpretation Comme nts MAGNESIUM (test code = 6770806374) 2.2 mg/dL 1.7-2.4 Lab Interpretation (test cod e = 27217-6) Normal [facility] System[facility]2023-02-19 06:18:55* Test Item Value Reference Range Interpretation Comme nts LIPASE (test code = 9239391708) 18 U/L 0-220 Lab Interpretation (test cod e = 53774-6) Normal [facility] SystemCREATINE JJRMBO9931-89-22 06:18:55* Test Item Value Reference Range Interpretation Comme nts CK (test code = 0717052194) 174 U/L 33-194 Lab Interpretation (test cod e = 43816-1) Normal [facility] WITH IYCC5839-98-90 06:02:35* Test Item Value Reference Range Interpretation [...] 32.4 g/dL 31.2-35.0 RDW-SD (test code = 41663-7) 50.2 fL 38.5-51.6 RDW-CV (test code = 788-0) 14.3 % 12.1-15.4 PLT (test code = 777-3) 241 See_Comment [Automated messa ge] The system which generated this result transmitted reference range: 150 - 328 10*3/?L. The reference range was not used to interpret this result as normal/abnormal. MPV (test code = 04849-1) 8.6 fL 9.8-13.0 L NRBC/100 WBC (test code = 6239956026) 0.0 See_Comment [Automated [employer] ssage] The system which generated this result transmitted reference range: 0.0 - 10.0 /100 WBCs. The reference range was not used to interpret this result as normal/abnormal. NRBC x10^3 (test code = 2995668802) See_Comment [Automated messa ge] The system which generated this result transmitted reference range: 10*3/?L. The reference range was not used to interpret this result as normal/abnormal. GRAN MAT (NEUT) % (test code = 770-8) 63.9 % IMM GRAN % (test code = 4613096063) 0.50 % LYMPH % (test code = 736-9) 17.6 % MONO % (test code = 5905-5) 16.5 % EOS % (test code = 713-8) 0.7 % BASO % (test code = 706-2) 0.8 % GRAN MAT x10^3(ANC) (test code = 2010074604) 4.79 10*3/uL 1.99-6.95 IMM GRAN x10^3 (test code = 1837204748) 0.04 10*3/uL 0.00-0.06 LYMPH x10^3 (test code = 731-0) 1.32 10*3/uL 1.09-3.23 MONO x10^3 (test code = 742-7) 1.24 10*3/uL 0.36-1.02 H EOS x10^3 (test code = 711-2) 0.05 10*3/uL 0.06-0.53 L BASO x10^3 (test code = 704-7) 0.06 10*3/uL 0.01-0.09 Lab Interpretation (test code = 90982-9) Abnormal [facility] [id number] 15:15:32* Test Item Value Reference Range Interpretation Comments TROPONIN I (test code = 8982928225) 0.007 ng/mL See_Comment [Automated message] The system [...] of biotin. Lab Interpretation (test code = 35300-1) Normal [facility] System[facility]PTT2022-10-16 15:08:29* Test Item Value Reference Range Interpretation Comme [facility] APTT Patient (test code = 3173-2) See_Comment [Automated message] The system which generated this result transmitted reference range: 23 - 38 Seconds. The reference range was not used to interpret this result as normal/abnormal. JUAN ALBERTO (test code = JUAN ALBERTO) The [facility] patient population mean normal value for aPTT is 30 seconds. Lab Interpretation (test code = 27085-7) Normal [facility] SystemPROTHROMBIN TIME / [id number] 15:06:28* Test Item Value Reference Range Interpretation [...] the indications. Lab Interpretation (test code = 50412-1) Normal [facility] SystemCOMP. METABOLIC PANEL (80001)2022-04-06 15:03:31* Test Item Value Reference Range Interpretation Comme [facility] NA (test code = 7060746187) 136 mmol/L 135-145 K (test code = 6308361758) 5.0 mmol/L 3.5-5 CL (test code = 7406697782) 104 mmol/L 98-108 CO2 TOTAL (test code = 4409815057) 21 mmol/L 23-31 L AGAP (test code = 6386826049) 2-16 BUN (test code = 5021169335) 11 mg/dL 7-23 GLUCOSE (test code = 7443666560) 162 mg/dL 70-110 H CREATININE (test code = 1601080268) 0.52 mg/dL 0.6-1.25 L TOTAL BILI (test code = 5475336611) 1.0 mg/dL 0.1-1.1 CALCIUM (test code = 2488974613) 9.3 mg/dL 8.6-10.6 T PROTEIN (test code = 4768799015) 7.4 g/dL 6.3-8.2 ALBUMIN (test code = 4810725651) 4.4 g/dL 3.5-5 ALK PHOS (test code = 4794215874) 134 U/L 34-122 H ALTv (test code = 1742-6) 17 U/L 5-50 AST(SGOT) (test code = 1437266774) 38 U/L 13-40 eGFR (test code = 5595940746) mL/min/1.73m2 JUAN ALBERTO (test code = JUAN [...] imaging tests). Lab Interpretation (test code = 43282-0) [facility] BranchLIP[facility], IAJPU9650-73-78 15:03:31* Test Item Value Reference Range Interpretation Comme nts LIPASE (test code = 9541498943) 29 U/L 0-220 Lab Interpretation (test cod e = 98020-8) Normal [facility] WITH [id number] 14:51:49* Test Item Value Reference Range Interpretation [...] 34.0 g/dL 31.2-35 RDW-SD (test code = 36874-1) 45.9 fL 38.5-51.6 RDW-CV (test code = 788-0) 13.3 % 12.1-15.4 PLT (test code = 777-3) See_Comment [Automated messa ge] The system which generated this result transmitted reference range: 150 - 328 10*3/?L. The reference range was not used to interpret this result as normal/abnormal. MPV (test code = 71848-1) 8.4 fL 9.8-13 L NRBC/100 WBC (test code = 5649460189) See_Comment [Automated [employer] ssage] The system which generated this result transmitted reference range: 0.0 - 10.0 /100 WBCs. The reference range was not used to interpret this result as normal/abnormal. NRBC x10^3 (test code = 3713567971) See_Comment [Automated messa ge] The system which generated this result transmitted reference range: 10*3/?L. The reference range was not used to interpret this result as normal/abnormal. GRAN MAT (NEUT) % (test code = 770-8) 63.0 % IMM GRAN % (test code = 6106591730) 0.50 % LYMPH % (test code = 736-9) 25.2 % MONO % (test code = 5905-5) 9.8 % EOS % (test code = 713-8) 0.3 % BASO % (test code = 706-2) 1.2 % GRAN MAT x10^3(ANC) (test code = 7888653650) 3.73 10*3/uL 1.99-6.95 IMM GRAN x10^3 (test code = 5549614215) 0.03 10*3/uL 0-0.06 LYMPH x10^3 (test code = 731-0) 1.49 10*3/uL 1.09-3.23 MONO x10^3 (test code = 742-7) 0.58 10*3/uL 0.36-1.02 EOS x10^3 (test code = 711-2) 0.06-0.53 L BASO x10^3 (test code = 704-7) 0.07 10*3/uL 0.01-0.09 Lab Interpretation (test code = 96259-5) Abnormal [facility], Urinalysis Rflx Cult/Jevgd6738-64-93 13:53:00* Test Item Value Reference Range Interpretation Comme nts Color,Urine (test code = UCOL) Yellow Yellow Clarity,Urine (test code = UCLAR) Cloudy Clear A Ph, Urine (test code = UPH) 7.5 5.0-9.0 N Specific [place],Urine (test code = USG) 1.025 1.005-1.030 N [...] = ULEU) Negative mg/dL Negative UF REFLEXDrug Screen,Zzdsu2480-96-62 13:53:00* Test Item Value Reference Range Interpretation [...] UPROP) Negative Negative Complete Blood Count Auto Kupi0400-92-85 12:58:00* Test Item Value Reference Range Interpretation [...] = NRBCP) 0 % Coronavirus PCR, COVID19 Kzfsc4883-83-17 12:58:00* Test Item Value Reference Range Interpretation Comme nts Coronavirus PCR, COVID19 Rapid (test code = SARSCOV2) Coronavirus PCR, COVID19 Rapid (test code = DQPIQMO15.1) Reference Range: Negative SARS-CoV-2 PCR Result: (test code = SARS-CoV-2 PCR Result:) Negative by RT-PCR COVID-19 Status: AsymptomaticComprehensive Metabolic Joqpe8728-47-62 12:58:00* Test Item Value Reference Range Interpretation [...] = ALP) 144 U/L 46-116 H Ethanol Ttyox9915-33-94 12:58:00* Test Item Value Reference Range Interpretation Comme nts Ethanol (test code = ETOH) < 3 mg/dL The pharmacologi yudy response to blood alcohol levels mayvary from individual to individual. The fatal concentrationhas been reported to be >400mg/dL. TVPUNHH8070-22-83 01:47:56* Test Item Value Reference Range Interpretation Comme nts Panacea (test code = 6792191130) 0.7 mmol/L 0.6-1.2 JUAN ALBERTO (test code = JUAN ALBERTO) Toxic Range: ? Greater than 1.2 mmol/L Lab Interpretation (test code = 37417-9) Normal [facility] [id number] 00:26:53* Test Item Value Reference Range Interpretation Comments TROPONIN I (test code = 2443956885) 0.002 ng/mL See_Comment [Automated message] The system [...] of biotin. Lab Interpretation (test code = 66391-1) Normal [facility]OL2022-08-01 00:18:52 ALCOHOL<10mg/dL01/19/2022 7:18 [facility] Ypaelimf89-862 Toxic>100 Depression of [employer] NETWORK DEVELOPMENT>400 Fatalities ReportedUnited [facility] Healthcare SystemCOMP. METABOLIC PANEL (44562)2022-01-20 00:16:16* Test Item Value Reference Range Interpretation Comme nts NA (test code = 6246202863) 137 mmol/L 135-145 K (test code = 1264478129) 4.5 mmol/L 3.5-5 CL (test code = 5397167139) 103 mmol/L 98-108 CO2 TOTAL (test code = 4630219327) 26 mmol/L 23-31 AGAP (test code = 7082757523) 2-16 BUN (test code = 2451743454) 10 mg/dL 7-23 GLUCOSE (test code = 2553903633) 121 mg/dL 70-110 H CREATININE (test code = 2771951982) 0.65 mg/dL 0.6-1.25 TOTAL BILI (test code = 9438853093) 0.8 mg/dL 0.1-1.1 CALCIUM (test code = 6121524643) 11.4 mg/dL 8.6-10.6 H T PROTEIN (test code = 8078286258) 7.2 g/dL 6.3-8.2 ALBUMIN (test code = 8065249147) 4.6 g/dL 3.5-5 ALK PHOS (test code = 7561119425) 112 U/L 34-122 ALTv (test code = 1742-6) 19 U/L 5-50 AST(SGOT) (test code = 3390659728) 26 U/L 13-40 eGFR (test code = 8806350597) mL/min/1.73m2 JUAN ALBERTO (test code = JUAN [...] imaging tests). Lab Interpretation (test code = 68507-7) Abnormal [facility] WITH JGYP4701-10-70 23:43:54* Test Item Value Reference Range Interpretation Comme nts WBC (test code = 6690-2) See_Comment [Automated messa ge] The system which generated this result transmitted reference range: 4.20 - 10.70 10*3/?L. The reference range was not used to interpret this result as normal/abnormal. RBC (test code = 789-8) See_Comment [Automated HOLLRa ge] The system which generated this result [...] 34.4 g/dL 31.2-35 RDW-SD (test code = 73569-2) 44.0 fL 38.5-51.6 RDW-CV (test code = 788-0) 12.6 % 12.1-15.4 PLT (test code = 777-3) See_Comment [Automated HOLLRa ge] The system which generated this result transmitted reference range: 150 - 328 10*3/?L. The reference range was not used to interpret this result as normal/abnormal. MPV (test code = 23342-3) 9.1 fL 9.8-13 L NRBC/100 WBC (test code = 6068205754) See_Comment [Automated [employer] ssage] The system which generated this result transmitted reference range: 0.0 - 10.0 /100 WBCs. The reference range was not used to interpret this result as normal/abnormal. NRBC x10^3 (test code = 9826761360) See_Comment [Automated HOLLRa ge] The system which generated this result transmitted reference range: 10*3/?L. The reference range was not used to interpret this result as normal/abnormal. GRAN MAT (NEUT) % (test code = 770-8) 69.8 % IMM GRAN % (test code = 7768926804) 0.40 % LYMPH % (test code = 736-9) 18.0 % MONO % (test code = 5905-5) 10.9 % EOS % (test code = 713-8) 0.1 % BASO % (test code = 706-2) 0.8 % GRAN MAT x10^3(ANC) (test code = 2950778024) 5.58 10*3/uL 1.99-6.95 IMM GRAN x10^3 (test code = 4511683879) 0.03 10*3/uL 0-0.06 LYMPH x10^3 (test code = 731-0) 1.44 10*3/uL 1.09-3.23 MONO x10^3 (test code = 742-7) 0.87 10*3/uL 0.36-1.02 EOS x10^3 (test code = 711-2) 0.06-0.53 L BASO x10^3 (test code = 704-7) 0.06 10*3/uL 0.01-0.09 Lab Interpretation (test code = 17030-1) Abnormal [facility] GLUCOSE (AUTOMATED)2022-01-19 22:27:41* Test Item Value Reference Range Interpretation Comme nts POCT GLU (test code = 2668826191) 123 mg/dL 70-110 H Lab Interpretation (test cod e = 64537-7) Abnormal [facility] GLUCOSE (AUTOMATED)2021-12-30 22:08:16* Test Item Value Reference Range Interpretation Comme nts POCT GLU (test code = 6496168337) 167 mg/dL 70-110 H Lab Interpretation (test cod e = 88223-4) Abnormal [facility] GLUCOSE (AUTOMATED)2021-12-30 16:50:40* Test Item Value Reference Range Interpretation Comme nts POCT GLU (test code = 6723287130) 154 mg/dL 70-110 H Lab Interpretation (test cod e = 43457-3) Abnormal [facility] GLUCOSE (AUTOMATED)2021-12-30 12:38:43* Test Item Value Reference Range Interpretation Comme nts POCT GLU (test code = 4083310610) 164 mg/dL 70-110 H Lab Interpretation (test cod e = 68956-9) Abnormal [facility] GLUCOSE (AUTOMATED)2021-12-30 02:14:58* Test Item Value Reference Range Interpretation Comme nts POCT GLU (test code = 4270894143) 220 mg/dL 70-110 H Lab Interpretation (test cod e = 59148-4) Abnormal [facility] GLUCOSE (AUTOMATED)2021-12-29 21:50:02* Test Item Value Reference Range Interpretation Comme nts POCT GLU (test code = 5450108850) 191 mg/dL 70-110 H Lab Interpretation (test cod e = 15285-2) Abnormal [facility] GLUCOSE (AUTOMATED)2021-12-29 20:15:01* Test Item Value Reference Range Interpretation Comme nts POCT GLU (test code = 1960885122) 163 mg/dL 70-110 H Lab Interpretation (test cod e = 43363-8) Abnormal [facility] System[facility]an[facility]hor[facility] (TTE)2021-12-29 19:12:22* Test Item Value Reference Range Interpretation Comme nts Height (test code = 0251810922) in Weight (test code = 5168698370) lbs Systolic BP (test code = 3934332253) mmHg Diastolic BP (test code = 2103021488) mmHg Heart Rate (test code = 9374047835) bpm BSA (test code = 7585806363) 1.62 m2 Ao root annulus (test code = 8685782725) 2.45 cm Ao root diam (test code = 4523741437) 2.45 cm Aortic root (test code = 2653570877) 2.45 cm ACS (test code = 6763810391) 1.66 cm LA size (test code = 8092020942) 3.2 cm LVOT diameter (test code = 1710696084) 1.95 cm LVIDD (test code = 5837869726) 3.60 cm IVS (test code = 6458653436) 0.94 cm Interventricular Septum Diastolic Thickness by 2D (test code = 0315363) 0.94 cm LVPWD (test code = 9020162934) 0.80 cm PW (test code = 9700319456) 0.80 cm 0.6-1.1 EF(Teich) (test code = 6576251764) 52.80 % LVIDS (test code = 9632222565) 2.60 cm FS (test code = 4167916468) 27 % EF - 2D (test code = 54907986) 52.80 % LAV(MOD-sp4) (test code = 2590467432) 16.80 mL MV Peak E Jovany (test code = 9527600366) 46.1 cm/s E wave decelartion time (test code = 6481405537) 0.31 s MV Peak A Jovany (test code = 4719631466) 58.1 cm/s E/A ratio (test code = 1249196699) ratio MV E/e' septal (test code = 1282355100) 5.7 cm/s Tapse (test code = 6904122383) 1.60 cm LVOT stroke volume (test code = 7095849653) 52.10 cm3 LVOT peak jovany (test code = 0929040180) 110.6 cm/s LVOT mn grad (test code = 3663409110) mmHg AV LVOT peak gradient (test code = 1459461157) mmHg LVOT peak VTI (test code = 5993297271) 17.4 cm LV V1 mean (test code = 3429236286) 66.10 cm/s Aortic valve mean velocity (test code = 2741538137) 73.0 cm/s Ao peak jovany (test code = 7954795437) 124.6 cm/s Ao VTI (test code = 1001697216) 18.6 cm AV area by cont VTI (test code = 9174233899) 2.8 cm2 AV area peak jovany (test code = 7076517347) 2.7 cm2 Ao max PG (test code = 0646123345) 6.20 mm[Hg] AV peak gradient (test code = 1138914112) mmHg AV valve area (test code = 1109109739) 2.80 cm2 AV mean gradient (test code = 5799720562) mmHg Radiology Study observation (narrative) (test code = 45876-3) UJAN ALBERTO (test code = JUAN ALBERTO) Formatting [...] mL of Lumason ultrasound enhancing agent used. [facility]2021-12-29 12:50:31* Test Item Value Reference Range Interpretation Comme nts POCT GLU (test code = 3848377527) 141 mg/dL 70-110 H Lab Interpretation (test cod e = 06530-6) Abnormal [facility] [id number] 10:38:31* Test Item Value Reference Range Interpretation Comments TROPONIN I (test code = 1558590890) 0.003 ng/mL See_Comment [Automated message] The system [...] of biotin. Lab Interpretation (test code = 92428-6) Normal [facility] SystemLIP[facility] PANEL (41185)(TOTAL CHOLESTEROL, TRIGLYCERIDES, HDL)2021-12-29 05:56:47* Test Item Value Reference Range Interpretation Comme nts CHOL (test code = 9705793000) 168 mg/dL 120-200 HDL (test code = 9514572143) 102 mg/dL See_Comment [Automated HOLLRa ge] The system which generated this result transmitted reference range: >=40. The reference range was not used to interpret this result as normal/abnormal. HDLC RATIO (test code = 4523962760) See_Comment [Automated HOLLRa ge] The system which generated this result transmitted reference range: <=5.0. The reference range was not used to interpret this result as normal/abnormal. TRIG (test code = 2207099234) 55 mg/dL 30-170 LDL CHOL (test code = 74704-4) 55 mg/dL See_Comment [Automated HOLLRa ge] The system which generated this result transmitted reference range: <=160. The reference range was not used to interpret this result as normal/abnormal. VLDL (test code = 9740612156) 11 mg/dL 5-60 Lab Interpretation (test code = 83358-2) Normal [facility] SystemThyroid Stimulating Hormone (TSH)2021-12-29 05:40:29* Test Item Value Reference Range Interpretation Comme nts TSH (test code = 2686705304) See_Comment Biotin has been reported to cause a negative bias, interpret results relative to patient's use of biotin. [Automated message] The system which generated this result transmitted reference range: 0.45 - 4.70 mIU/L. The reference range was not used to interpret this result as normal/abnormal. Lab Interpretation (test code = 79964-9) Normal [facility] [id number] 05:34:29* Test Item Value Reference Range Interpretation Comments TROPONIN I (test code = 8911227515) 0.006 ng/mL See_Comment [Automated message] The system [...] of biotin. Lab Interpretation (test code = 59799-4) Normal [facility] SystemETHANOL2022-07-10 04:43:01 ALCOHOL<10mg/dL12/28/2021 11:43 PM [facility]ATORYToxic Greater than or equal to 80 mg/dL. NOTE: Whole blood values are approximately 10% to 15% lower than serum and plasma.[facility] Glycosylated Hemoglobin (A1C)2021-12-29 01:51:44* Test Item Value Reference Range Interpretation Comme nts HGB A1C (test code = 4548-4) 6.5 % 4-5.7 H JUAN ALBERTO (test code = JUAN ALBERTO) Reference RangesNormal: <5.7%Prediabetes: 5.7 - 6.4%Diabetes: > 6.5% Lab Interpretation (test code = 97531-5) Abnormal [facility] SystemTROP[facility]IN [id number] 21:26:50* Test Item Value Reference Range Interpretation Comments TROPONIN I (test code = 9027819995) 0.002 ng/mL See_Comment [Automated message] The system [...] of biotin. Lab Interpretation (test code = 97565-8) Normal [facility] SystemN-TERMINAL [id number] 21:23:29* Test Item Value Reference Range Interpretation Comme nts NT-proBNP (test code = 4693970730) 41 pg/mL See_Comment [Automated message] The system which generated this result transmitted reference range: <=125. The reference range was not used to interpret this result as normal/abnormal. JUAN ALBERTO (test code = JUAN ALBERTO) Biotin has been reported to cause a negative bias, interpret results relative to patient's use of biotin. Lab Interpretation (test code = 39878-8) Normal [facility] SystemAMMONIA, [id number] 21:20:38* Test Item Value Reference Range Interpretation Comme nts AMMONIA (test code = 5524670705) 9-33 L Slight hemolysis Lab Interpretation (test code = 46999-3) Abnormal [facility] SystemCOMP. METABOLIC PANEL (58101)2021-12-28 21:08:48* Test Item Value Reference Range Interpretation Comme nts NA (test code = 2158591687) 137 mmol/L 135-145 K (test code = 4236677685) 4.5 mmol/L 3.5-5 CL (test code = 7083949069) 97 mmol/L 98-108 L CO2 TOTAL (test code = 4895912245) 29 mmol/L 23-31 AGAP (test code = 0237110807) 2-16 BUN (test code = 5274343812) 10 mg/dL 7-23 GLUCOSE (test code = 0222660264) 188 mg/dL 70-110 H CREATININE (test code = 0365826204) 0.58 mg/dL 0.6-1.25 L TOTAL BILI (test code = 7179373006) 0.8 mg/dL 0.1-1.1 CALCIUM (test code = 4614855381) 10.5 mg/dL 8.6-10.6 T PROTEIN (test code = 0471084570) 7.6 g/dL 6.3-8.2 ALBUMIN (test code = 8251246293) 4.5 g/dL 3.5-5 ALK PHOS (test code = 9025279315) 107 U/L 34-122 ALTv (test code = 1742-6) 66 U/L 5-50 H AST(SGOT) (test code = 0911332047) 96 U/L 13-40 H eGFR (test code = 7291368597) mL/min/1.73m2 JUAN ALBERTO (test code = JUAN [...] imaging tests). Lab Interpretation (test code = 75811-8) Abnormal [facility] SystemPROTHROMBIN TIME / [id number] 21:01:25* Test Item Value Reference Range Interpretation Comme jaelyn LUCIO PATIENT (test code = 5964-2) See_Comment [Automated [employer]] The system which generated this result transmitted reference range: 12.0 - 14.7 Seconds. The reference range was not used to interpret this result as normal/abnormal. INR (test code = 6301-6) Normal INR <1.1; Warfarin Therapeutic range 2.0 to 3.0 or 2.5 to 3.5, depending upon the indications. Lab Interpretation (test code = 86633-8) Normal [facility] WITH [id number] 20:54:03* Test Item Value Reference Range Interpretation [...] 34.2 g/dL 31.2-35 RDW-SD (test code = 85113-1) 47.8 fL 38.5-51.6 RDW-CV (test code = 788-0) 13.3 % 12.1-15.4 PLT (test code = 777-3) See_Comment [Automated messa ge] The system which generated this result transmitted reference range: 150 - 328 10*3/?L. The reference range was not used to interpret this result as normal/abnormal. MPV (test code = 20819-5) 8.6 fL 9.8-13 L NRBC/100 WBC (test code = 5477632522) See_Comment [Automated me ssage] The system which generated this result transmitted reference range: 0.0 - 10.0 /100 WBCs. The reference range was not used to interpret this result as normal/abnormal. NRBC x10^3 (test code = 7694676475) See_Comment [Automated messa ge] The system which generated this result transmitted reference range: 10*3/?L. The reference range was not used to interpret this result as normal/abnormal. GRAN MAT (NEUT) % (test code = 770-8) 64.1 % IMM GRAN % (test code = 0484721788) 0.40 % LYMPH % (test code = 736-9) 16.6 % MONO % (test code = 5905-5) 17.2 % EOS % (test code = 713-8) 0.2 % BASO % (test code = 706-2) 1.5 % GRAN MAT x10^3(ANC) (test code = 5719207308) 3.47 10*3/uL 1.99-6.95 IMM GRAN x10^3 (test code = 0955439586) 0-0.06 LYMPH x10^3 (test code = 731-0) 0.90 10*3/uL 1.09-3.23 L MONO x10^3 (test code = 742-7) 0.93 10*3/uL 0.36-1.02 EOS x10^3 (test code = 711-2) 0.06-0.53 L BASO x10^3 (test code = 704-7) 0.08 10*3/uL 0.01-0.09 Lab Interpretation (test code = 91624-0) Abnormal [facility] SystemEthanol [id number] 21:08:00* Test Item Value Reference Range Interpretation Comme nts Ethanol (test code = ETOH) < 3 mg/dL The pharmacologi yudy response to blood alcohol levels mayvary from individual to individual. The fatal concentrationhas been reported to be >400mg/dL. Complete Blood Count Auto [id number] 17:33:00* Test Item Value Reference Range Interpretation [...] = NRBCP) 0 % UA, Urinalysis Rflx Cult/[id number] 17:33:00* Test Item Value Reference Range Interpretation Comme nts Color,Urine (test code = UCOL) Dark Yellow Yellow A Clarity,Urine (test code = UCLAR) Clear Clear Ph, Urine (test code = UPH) 6.5 5.0-9.0 N Specific [place],Urine (test code = USG) 1.015 1.005-1.030 N [...] = ULEU) Trace mg/dL Negative A Urine [id number] 17:33:00* Test Item Value Reference Range Interpretation Comme nts RBC,Urine (test code = URBCUF) None Seen /HPF 0-2 WBC,Urine (test code = UWBCUF) 0-5 /HPF 0-5 Epithelial Cell,Urine (test code = UECUF) 0-5 /HPF 0-5 Casts,Urine (test code = UCASTUF) None Seen /LPF None Seen Bacteria,Urine (test code = UBACTUF) None Seen /hpf None Seen Drug Screen,[id number] 17:33:00* Test Item Value Reference Range Interpretation [...] code = UPROP) Negative Negative Comprehensive Metabolic [id number] 17:33:00* Test Item Value Reference Range Interpretation [...] 101 U/L 46-116 N Sars-CoV-2/FLU A/B RSV [id number] 17:31:00* Test Item Value Reference Range Interpretation [...] SARS-CoV-2 PCR Result:) Negative by RT-PCR Drug Screen,[id number] 17:20:00* Test Item Value Reference Range Interpretation [...] UPROP) Negative Negative Complete Blood Count Auto [id number] 17:14:00* Test Item Value Reference Range Interpretation [...] code = NRBCP) 0 % Comprehensive Metabolic [id number] 17:14:00* Test Item Value Reference Range Interpretation [...] = ALP) 207 U/L 46-116 H Ethanol [id number] 17:14:00* Test Item Value Reference Range Interpretation Comme nts Ethanol (test code = ETOH) 192 mg/dL Complete Blood Count Auto [id number] 20:20:00* Test Item Value Reference Range Interpretation [...] code = NRBCP) 0 % Comprehensive Metabolic [id number] 20:20:00* Test Item Value Reference Range Interpretation [...] = ALP) 189 U/L 46-116 H Ethanol [id number] 20:20:00* Test Item Value Reference Range Interpretation Comme nts Ethanol (test code = ETOH) 10 mg/dL Sars-CoV-2/FLU A/B RSV [id number] 20:20:00* Test Item Value Reference Range Interpretation [...] Negative by Nucleic Acid Amplification UA, Urinalysis [id number] 20:20:00* Test Item Value Reference Range Interpretation Comme nts Color,Urine (test code = UCOL) Yellow Y Clarity,Urine (test code = UCLAR) Clear Clear PH,Urine (test code = UPH.XX) 7.0 5.5-8.5 Specific [place],Urine (test code = USG) 1.020 1.005-1.030 N [...] code = ULEU) Negative cells/uL Negative Drug Screen,[id number] 20:20:00* Test Item Value Reference Range Interpretation [...] RESULT TO FO LLOW CT head/brain wo [facility] [address] [place] [address] Patient Name: Walt Velazquez Medical Record#: [id number] Address: Homeless City/State/Zip: [place] [address]: Vinnie Navarro MD Phone: Insurance: Self Pay /Age/Sex: 1970/50/M Admit/Reg Date: 09/17/[address]: Vinnie Navarro MD Location: [facility]/ PCP: PcpMd KERWIN Jimenez Date of Service: 09/17/21 Order (s): CT head/brain wo con CPT Code: 10093 Report Number: [id number] Reason for Exam: Altered mental status Location [...]
[2023-09-28] MEDS ORDERED: NA CHLORIDE 0.9% 1,000 ML ONE (12:18)
[2023-09-28] MEDS ORDERED: DIAZEPAM 10 MG/2 ML INJ SYRINGE ONE (12:18)
--- NOTE | 2023-09-28 12:20 | RAD REPORT ---
EXAM DESCRIPTION: RADChest Single View09/28/2023 12:13 pm CLINICAL HISTORY: CHEST PAIN COMPARISON: Chest Single View dated 09/27/2023; Chest Single View dated 09/21/2023; Chest Single View da naomie 08/05/2023; Chest Single View dated 07/24/2023 TECHNIQUE: Portable AP view of the chest. FINDINGS: The lungs are clear. No pneumothorax or effusion. The cardiomediastinal contours are unre markable. IMPRESSION: No acute cardiopulmonary process.
--- NOTE | 2023-09-28 12:33 | RAD REPORT ---
EXAM DESCRIPTION: CT - Head Brain Wo Cont - 09/28/2023 12:08 pm CLINICAL HISTORY: seizure, fall COMPARISON: Head Brain Wo Cont dated 09/27/2023; Head Brain Wo Cont dated 08/25/2023 TECHNIQUE: Noncontrast head CT images were obtained without IV contrast. Multiplanar reformats were generated and reviewed. All CT scans are performed using dose optimization technique as appropriate and may include automated exposure control or mA/KV adjustment according to patient size. FINDINGS: No intracranial hemorrhage, mass, or edema. Midline structures are unremarkable. Normal ventricular caliber for age. Og-white matter differentiation is preserved, without evidence of acute infarct. No abnormal extra- axial fluid collections. Mastoid air cells and visualized portions of the paranasal sinuses are clear. No acute bony findings. Stable small soft tissue lesion along the midline frontal scalp, may represent a sebaceous cyst. Stab le deformity along the left lamina papyracea, suggesting sequelae of remote trauma. IMPRESSION: No evidence of an acute intracranial process.
[2023-09-28 13:02] LABS: Absolute Basophils 0.1 K/uL (0-0.5); Absolute Lymphocytes (CBC) 1.2 K/uL (0.7-4.9); Absolute Monocytes 0.4 K/uL (0.1-1.3); Absolute Neutrophil 1.8 K/uL (1.8-8.0); Basophils % 2.3 % (0-1.3); Eosinophils % 0.4 % (0-4.4); Hematocrit 45.4 % (39.6-49.0); Hemoglobin 14.7 g/dL (13.6-17.9); Lymphocytes % 34.3 % (15.3-44.8); MCH 29.8 pg (27.0-35.0); MCHC 32.5 g/dL (32.0-36.0); MCV 91.9 fL (80-100); MPV 7.2 fL (7.6-11.3); Monocytes % 10.8 % (3.3-12.3); Neutrophils % 52.2 % (41.7-73.7); Nucleated Red Blood Cells % 0.1 % (0-0); Platelets 98 thou/uL (152-406); RBC Red Blood Cell Count 4.93 M/uL (4.33-5.43); Red Cell Distribution Width 16.1 % (12.1-15.2)
[2023-09-28 15:33] LABS: Albumin 3.6 g/dL (3.4-5.0); Albumin/Globulin Ratio 0.9 (1.1-1.8); Anion Gap 7.8 mEq/L (5.0-15.0); Bilirubin Direct 0.2 mg/dL (0-0.2); Bilirubin Indirect, Calculated 0.2 mg/dL (0.2-0.8); Bilirubin Total 0.4 mg/dL (0.2-1.0); Magnesium 2.3 mg/dL (1.6-2.4); Potassium 3.8 mEq/L (3.5-5.1); Protein, Total 7.6 g/dL (6.4-8.2); Troponin High Sensitivity 12.9 pg/mL (<58.9)
--- NOTE | 2023-09-28 15:43 | EDPHYS ---
Physician Documentation [facility] Name: Walt Velazquez Age: 52 yrs Sex: Male : 1970 Arrival Date: 09/28/2023 Time: 11:47 Bed 18 Private MD: ED Physician Kaiser Marie HPI: 09/27 11:54 This 52 yrs old Male presents to ER via Unassigned with complaints of chest rn pain. 11:54 The patient or guardian reports chest pain that is located primarily in the substernal rn area. Onset: at an unknown time. The pain does not radiate. Associated signs and symptoms: Pertinent positives: None. Pertinent negatives: abdominal pain, shortness of breath, syncope, vomiting. The chest pain is described as sharp. Duration: The patient or guardian reports multiple episodes, that are intermittent. Modifying factors: The symptoms are alleviated by nothing. the symptoms are aggravated by nothing. Severity of pain: At its worst the pain was mild in the emergency department the pain is unchanged. The patient has experienced similar episodes in the past. EMS reports patient in half-way, they were cleaning his close and found on the ground. No seizure activity reported but they are not sure exactly what happened. Patient reports feeling generalized weakness. Last drink was last night. Denies any trauma from fall or syncope. Reports mild headache. Also reports chest pain, substernal, nonradiating, not associated with shortness of breath.. Historical: - Allergies: 11:57 Trazodone; as6 - PMHx: 11:57 Alcoholism; Bipolar II; Hypertensive disorder; Parkinsons; Seizure; as6 - Immunization history:: Adult Immunizations not up to date. - Infectious Disease History:: Denies. - Family history:: not pertinent. - Social history:: Smoking status: Patient reports the use of cigarette tobacco products, Patient uses alcohol, on a daily basis. - Hospitalizations: : No recent hospitalization is reported. ROS: 11:54 Constitutional: Negative for fever, chills, and weight loss, Eyes: Negative for injury, rn pain, redness, and discharge, Neck: Negative for injury, pain, and swelling, Cardiovascular: Positive for chest pain Respiratory: Negative for shortness of breath, cough, wheezing, and pleuritic chest pain, Abdomen/GI: Negative for abdominal pain, nausea, vomiting, diarrhea, and constipation, Back: Negative for injury and pain, MS/Extremity: Negative for injury and deformity, Skin: Negative for injury, rash, and discoloration, Neuro: Positive for headache and generalized weakness. Exam: 11:54 Constitutional: Knee command, no acute distress, laughing Head/Face: Normocephalic, rn atraumatic. ENT: No oral trauma. Cardiovascular: Regular rate and rhythm. No pulse deficits. Respiratory: No increased work of breathing, no retractions or nasal flaring. Abdomen/GI: Soft, nontender. MS/ Extremity: Pulses equal, no cyanosis. Neurovascular intact. Full, normal range of motion. Equal circumference. Neuro: Awake and alert, GCS 15 Vital Signs: 12:36 BP 118 / 79; Pulse 72; Resp 18; Temp 98(TE); Pulse Ox 94% on R/A; Weight 54.43 kg; ld1 Height 5 ft. 5 in. ; Pain 0/10; 14:00 BP 119 / 81; Pulse 71; Resp 18; Pulse Ox 96% on R/A; ld1 15:02 BP 123 / 78; Pulse 69; Resp 18; Pulse Ox 97% on R/A; ld1 12:36 Body Mass Index 19.97 (54.43 kg, 165.1 cm) ld1 12:36 Pain Scale: Adult ld1 MDM: 11:48 Patient medically screened. rn 15:35 Differential diagnosis: acute myocardial infarction, anxiety, coronary artery disease rn chest wall pain, congestive heart failure costochondritis, esophagitis, gastritis, gastroesophageal reflux disease (GERD), pleurisy, pneumonia, pneumothorax. HEART Score: History: Slightly Suspicious (0), ECG: Normal (0), Age: > 45 and < 65 years (1), Risk Factors: 1 or 2 risk factors (1), Total Score = 2. Data reviewed: vital signs, nurses notes, lab test result(s), EKG, radiologic studies, plain films. ED course: Half of the lab tests came back, lab called for a recollect, patient is now refusing further blood draws, is ambulatory to bathroom and would like to leave. Understands risks of leaving prior to full evaluation.. 15:41 Counseling: I had a detailed discussion with the patient and/or guardian regarding the rn historical points, exam findings, and any diagnostic results supporting the discharge/admit diagnosis, lab results, radiology results, to return to the emergency department if symptoms worsen or persist or if there are any questions or concerns that arise at home. Response to treatment: the patient's symptoms have markedly improved after treatment. 09/27 11:49 Order name: Basic Metabolic Panel rn 09/27 11:49 Order name: CBC with Diff rn 09/27 11:49 Order name: LFT's rn 09/27 11:49 Order name: Magnesium rn 09/27 11:49 Order name: NT PRO-BNP rn 09/27 11:49 Order name: Troponin HS rn 09/27 11:49 Order name: ETOH Level; Complete Time: 13:48 rn 09/27 13:06 Order name: CBC Smear Scan EDMS 09/27 11:49 Order name: XRAY Chest (1 view); Complete Time: 12:55 rn 09/27 11:49 Order name: CT Head Brain wo Cont; Complete Time: 12:55 rn 09/27 11:49 Order name: EKG; Complete Time: 11:50 rn 09/27 11:49 Order name: Cardiac monitoring; Complete Time: 12:36 rn 09/27 11:49 Order name: EKG - Nurse/Tech; Complete Time: 12:36 rn 09/27 11:49 Order name: IV Saline Lock; Complete Time: 12:36 rn 09/27 11:49 Order name: Labs collected and sent; Complete Time: 12:36 rn 09/27 11:49 Order name: O2 Per Protocol; Complete Time: 12:36 rn 09/27 11:49 Order name: O2 Sat Monitoring; Complete Time: 12:36 rn 09/27 13:08 Order name: Labs - recollect needed: recollect lavender and green top; Complete Time: bd 13:23 Administered Medications: 12:36 Drug: NS 0.9% IV 1000 ml IV at 1000 ml once Route: IV; Rate: 1000 ml; Site: right ld1 antecubital; 12:36 Drug: Diazepam IVP 5 mg IVP once Route: IVP; Site: right antecubital; ld1 Disposition Summary: 09/28/23 15:42 Discharge Ordered Notes: Location: Home rn Problem: new rn Symptoms: have improved rn Condition: Stable rn Diagnosis - Alcohol abuse rn - Chest pain, unspecified rn Followup: rn - With: Private Physician - When: As needed - Reason: Recheck today's complaints, Re-evaluation by your physician Forms: - Medication Reconciliation Form rn - Thank You Letter rn - Antibiotic corn popper - Prescription Opioid Use rn - Patient Portal Instructions rn - Leadership Thank You Letter rn Signatures: Dispatcher [employer] EDMS laverne Mily Kaiser Gil MD MD rn Sims, Lauren, RN RN ld1 Nico Dean RN RN as6 Corrections: (The following items were deleted from the chart) 11:50 11:49 BASIC METABOLIC PANEL+C.LAB.BRZ ordered. EDMS EDMS 11:50 11:49 CBC+H.LAB.BRZ ordered. EDMS EDMS 11:50 11:49 HEPATIC FUNCTION+C.LAB.BRZ ordered. EDMS EDMS 11:50 11:49 MAGNESIUM+C.LAB.BRZ ordered. EDMS EDMS 11:50 11:49 PROBNP+C.LAB.BRZ ordered. EDMS EDMS 11:50 11:49 Troponin High Sensitivity+C.LAB.BRZ ordered. EDMS EDMS 11:50 11:49 ETHANOL+C.LAB.BRZ ordered. EDMS EDMS
--- NOTE | 2023-09-28 15:43 | ER ---
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 iw Coronavirus screen: At this time, the client does not indicate any symptoms associated with coronavirus-19. Ebola Screen: Patient negative for fever greater than or equal to 101.5 degrees Fahrenheit, and additional compatible Ebola Virus Disease symptoms Patient denies exposure to infectious person. Patient denies travel to an Ebola-affected area in the 21 days before illness onset. No symptoms or risks identified at this time. Risk Assessment: Do you want to hurt yourself or someone else?. 11:54 Method Of Arrival: EMS: [facility] iw 11:54 Acuity: LATASHA 3 iw 15:44 Initial Sepsis Screen: Does the patient meet any 2 criteria? No. Patient's initial ld1 sepsis screen is negative. Does the patient have a suspected source of infection? No. Patient's initial sepsis screen is negative. Onset of symptoms was September 28, 2023. Historical: - Allergies: 11:57 Trazodone; as6 - PMHx: 11:57 Alcoholism; Bipolar II; Hypertensive disorder; Parkinsons; Seizure; as6 - Immunization history:: Adult Immunizations not up to date. - Infectious Disease History:: Denies. - Family history:: not pertinent. - Social history:: Smoking status: Patient reports the use of cigarette tobacco products, Patient uses alcohol, on a daily basis. - Hospitalizations: : No recent hospitalization is reported. Screenin:36 [facility] ED Fall Risk Assessment (Adult) History of falling in the last 3 months, ld1 including since admission No falls in past 3 months (0 pts). Abuse screen: Denies threats or abuse. Denies injuries from another. Nutritional screening: No deficits noted. Tuberculosis screening: No symptoms or risk factors identified. Assessment: 12:38 General: Appears in no apparent distress. comfortable, Behavior is calm, cooperative, ld1 appropriate for age. Pain: Denies pain. Neuro: Level of Consciousness is awake, alert, obeys commands, Oriented to person, place, time, situation. Cardiovascular: Capillary refill < 3 seconds Patient's skin is warm and dry. Respiratory: Airway is patent Respiratory effort is even, unlabored. GI: Abdomen is flat, non-distended. : No signs and/or symptoms were reported regarding the genitourinary system. EENT: No signs and/or symptoms were reported regarding the EENT system. Derm: No signs and/or symptoms reported regarding the dermatologic system. Musculoskeletal: No signs and/or symptoms reported regarding the musculoskeletal system. 14:00 Reassessment: Patient appears in no apparent distress at this time. No changes from ld1 previously documented assessment. 15:30 Reassessment: Pt refusing recollect. Notified ERP. Pt requesting to leave at this time. ld1 Vital Signs: 12:36 BP 118 / 79; Pulse 72; Resp 18; Temp 98(TE); Pulse Ox 94% on R/A; Weight 54.43 kg; ld1 Height 5 ft. 5 in. ; Pain 0/10; 14:00 BP 119 / 81; Pulse 71; Resp 18; Pulse Ox 96% on R/A; ld1 15:02 BP 123 / 78; Pulse 69; Resp 18; Pulse Ox 97% on R/A; ld1 12:36 Body Mass Index 19.97 (54.43 kg, 165.1 cm) ld1 12:36 Pain Scale: Adult ld1 ED Course: 11:48 Patient arrived in ED. rn 11:48 Kaiser Marie MD is Attending Physician. rn 11:55 Triage completed. iw 11:55 Arm band placed on. iw 12:09 CT Head Brain wo Cont In Process Unspecified. EDMS 12:14 XRAY Chest (1 view) In Process Unspecified. EDMS 12:15 Basilia Wen, ROBERTO is Primary Nurse. ld1 12:36 Patient has correct armband on for positive identification. Placed in gown. Bed in low ld1 position. Call light in reach. Side rails up X2. ekg monitor tech on. Pulse ox on. NIBP on. Door closed. Noise minimized. Warm blanket given. 12:36 No provider procedures requiring assistance completed. Inserted saline lock: 20 gauge ld1 in right antecubital area, using aseptic technique. Blood collected. 15:45 Provided Education on: drinking. ld1 15:45 IV discontinued, intact, bleeding controlled, No redness/swelling at site. ld1 17:05 Valuables Locked in safe. bd Administered Medications: 12:36 Drug: NS 0.9% IV 1000 ml IV at 1000 ml once Route: IV; Rate: 1000 ml; Site: right ld1 antecubital; 12:36 Drug: Diazepam IVP 5 mg IVP once Route: IVP; Site: right antecubital; ld1 Medication: 12:36 VIS not applicable for this client. ld1 Outcome: 15:42 Discharge ordered by . rn 15:45 Discharged to home ambulatory, ld1 15:45 Condition: stable 15:45 Discharge instructions given to patient, Instructed on discharge instructions, follow up and referral plans. Demonstrated understanding of instructions, follow-up care, 15:45 Patient left the ED. ld1 Signatures: Dispatcher [employer] EDMS Mily Auguste Irene, RN RN iw Kaiser Marie MD MD rn Sims, Lauren, RN RN ld1 Nico Dean RN RN as6
[2023-09-28 16:01] LABS: Blood Morphology Comment NOT SEEN (NOT SEEN); Platelet Estimate DECR; White Blood Cell Scan OK (OK)
[2023-09-28 19:42] VITALS: TEMP 98
[2023-09-28 20:19] VITALS: BP 123/78; O2SAT 97
--- NOTE | 2023-09-29 16:18 | EKG ---
Test Date: 2023-09-28 Test Time: 12:36:45 Block Splitter Operator: Nneka SI MEASUREMENT RESULTS: Intervals: Rate: 72 NM: 194 QRSD: 88 QT: 360 QTc: 394 [place]: P: 67 NM: 194 QRS: 58 T: 73 INTERPRETIVE STATEMENTS: Normal sinus rhythm Normal ECG Compared to ECG 09/21/2023 09:47:36 No significant changes Electronically Signed On 09-29-23 16:15:02 CDT by Cristhian Hernandez
== END 2023-09-28 15:45 | disposition home or self-care (01) ==
LOC: ER 11:47
DX: R07.9 Chest pain, unspecified (principal); F10.20 Alcohol dependence, uncomplicated; Z88.5 Allergy status to narcotic agent
CPT/HCPCS: 36415; 70450; 71045; 80048; 80076; 82077; 83735; 83880; 84484; 85025; 93005; 96374; 99285; J3360; J7030

== ENCOUNTER 2023-09-29 10:52 | Emergency (ER) | payer SELFPAY ==
--- OUTSIDE RECORDS SUMMARY | 2023-09-29 10:58 | XMS REPORT | Continuity of Care Document ---
Author Name Unknown Address [address] [place] [address] [facility] Address [address] [place] [address] Care Team Providers Care Permit Review Assistant Name Role Phone Pcp-None Primary Care Physician Unavailab HEMANT Adame Attending Clinician Unavailable Hemant Klein MD Attending Clinician [phone] Pan Pinto Attending Clinician Unavailab JESSICA Gallardo Attending Clinician Unavailable Rayray Driscoll MD Attending Clinician [phone] Jessica Prado MD Attending Clinician [phone] Oswald Murphy MD Attending Clinician [phone] DIYA CHOWDHURY Attending Clinician Unavailab Diya Mackey DO Attending Clinician [phone] Fidel Cuellar Attending Clinician Unavailable DIRK YARBROUGH Attending Clinician Unavailable Leticia Rowland Attending Clinician [phone] Dirk Yarbrough MD Attending Clinician [phone] Faye Portillo LVN Attending Clinician [phone] Pia Reddy Attending Clinician [phone] Vinnie Navarro Attending Clinician Unavailable OSWALD MURPHY Admitting Clinician Unavailable Oswald Murphy MD Admitting Clinician [phone] DIYA CHOWDHURY Admitting Clinician UnavailLeticia Gaytan Admitting Clinician Unavailable JESSICA PRADO Admitting Clinician Unavailable Jessica Prado MD Admitting Clinician [phone] Payers Payer Name Policy Type Policy Number Effective Date Expirati on Date Source [facility] [id number] 2022 00:00:00 Problems Condition Name Condition Details [...] s DA Active U 4-25 00:00: 00 [facility] No Known Drug Allergie s DA Active U 0 9-16 00:00: 00 [facility] No Known Drug Allergie s DA Active U 0 3-29 00:00: 00 [facility] No Known Drug Allergie s DA Active U 2019-06 2-16 00:00: 00 [facility] No Known Drug Allergie s DA Active U 2019-06 2-15 00:00: 00 [facility] No Known Drug Allergie s DA Active U 2019-06 2-02 00:00: 00 [facility] Trazodon e Propensi ty to adverse reaction s Active Other - See comments 10-06 00:00: 00 [facility] TRAZODON E DRUG INGREDI Active Other-Cmnt 10-06 00:00: 00 [facility] Social History Social Habit Start Date Stop Date Quantity Comments Source History of tobacco use Cigarette Smoker [facility] Exposure to SARS-CoV-2 (event) 2022-11-01 00:00:00 2022-11-11 13:57:00 Not sure [facility] Tobacco use and exposure 2022-08-10 00:00:00 2022-08-10 00:00:00 User of smokeless tobacco [facility] Alcohol intake 2022-08-10 00:00:00 2022-08-10 00:00:00 Current drinker of alcohol (finding) [facility] Tobacco Comment 2022-08-10 00:00:00 2022-08-10 00:00:00 1/2 a pack a day [facility] Sex Ass[birth year] At 1970 00:00:00 1970 00:00:00 [facility] Smoking Status Start Date Stop Date Source Smokes tobacco daily 2022-08-10 00:00:00 [facility] Medications Ordered Medication Name Filled [...] 08-12 00:00: 00 09-12 04:59 :00 No [id number] 1mg Take 1 tablet by mouth in [...] ONCE, 1 dose, On 04/06/22 at 1100, [facility] ondansetron (ZOFRAN (PF)) injection 4 mg 2021-06 15:45: 00 04-06 14:50 :00 No 4mg 4 mg, Slow IV Push, ONCE, 1 dose, On 04/06/22 at 1045, [facility] oxazepam (SERAX) capsule 15 mg 12-31 06:28: 17 01-01 06:29 :00 No 15mg 15 mg, Oral, Q12H TAPER, 2 doses, First dose on Thu12/31/21 at 0130, Last dose on Thu12/31/21 at 1330, Routine [facility] multivitami n tablet 12-31 00:00: 00 Yes [id number] 1{tbl} Take 1 tablet by mouth in the morning. [facility] thiamine 100 mg tablet 12-31 00:00: 00 Yes [id number] 100mg Take 1 tablet by mouth in the morning. [facility] aspirin 81 mg chewable tablet 12-31 00:00: 00 Yes [id number] 81mg Take 1 tablet by mouth in the morning. [facility] foLIC acid 1 mg tablet 12-31 00:00: 00 01-31 04:59 :00 No [id number] 1mg Take 1 tablet by mouth in the morning for 30 days. [facility] metFORMIN 500 mg tablet 12-30 00:00: 00 Yes [id number] 500mg Take 1 tablet by mouth in the morning and 1 tablet in the evening. Take with meals. [facility] aspirin chewable tablet 81 mg 12-29 14:00: 00 Yes 81mg 81 mg, Oral, DAILY, First dose on 12/29/21 at 0900, Until Discontinu ed, Routine [facility] sulfur hexafluorid e microsphr (LUMASON) injection 5 mL 12-29 13:45: 00 12-29 13:45 :00 No [id number] 5mL 5 mL, Intravenou s, ONCE, 1 dose, On 12/29/21 at 0845, Routine
choir member approving Restricted medication : STEFANIE GORMAN [facility] [...] ONCE, 1 dose, On 12/28/21 at 1815, [facility] NaCl 0.9% (NS) bolus infusion 2,000 mL 12-28 22:45: 00 12-28 23:18 :00 No 2000mL at 999 mL/hr, 2,000 mL, IV Infusion, ONCE, 1 dose, On 12/28/21 at 1745, [facility] LORazepam (ATIVAN) injection 1 mg [...] Hospital Heart rate 2022-11-11 20:31:31 84 /min [facility] Respiratory rate 2022-11-11 20:31:31 12 /min [facility] Oxygen saturation in Arterial blood by Pulse oximetry 2022-11-11 20:31:31 90 /min [facility] Body temperature 2022-11-11 18:49:00 37.11 Theresa [facility] Body height 2022-11-11 18:49:00 160 cm [facility] Body weight 2022-11-11 18:49:00 68.04 kg [facility] BMI 2022-11-11 18:49:00 26.57 kg/m2 [facility] Body temperature 2022-08-11 14:00:00 36.5 Theresa [facility] Systolic blood pressure 2022-08-11 10:00:00 116 mm[Hg] [facility] Diastolic blood pressure 2022-08-11 10:00:00 71 mm[Hg] [facility] Heart rate 2022-08-11 10:00:00 70 /min [facility] Respiratory rate 2022-08-11 10:00:00 16 /min [facility] Body weight 2022-08-11 10:00:00 65.499 kg [facility] BMI 2022-08-11 10:00:00 25.58 kg/m2 [facility] Oxygen saturation in Arterial blood by Pulse oximetry 2022-08-11 10:00:00 100 /min [facility] Body height 2022-08-10 22:12:00 160 cm [facility] Systolic blood pressure 2022-04-06 16:00:00 125 mm[Hg] [facility] Diastolic blood pressure 2022-04-06 16:00:00 75 mm[Hg] [facility] Heart rate 2022-04-06 16:00:00 87 /min [facility] Respiratory rate 2022-04-06 16:00:00 22 /min [facility] Oxygen saturation in Arterial blood by Pulse oximetry 2022-04-06 16:00:00 98 /min [facility] Body temperature 2022-04-06 14:41:00 37 Theresa [facility] Body height 2022-04-06 14:41:00 160 cm [facility] Body weight 2022-04-06 14:41:00 63.504 kg [facility] BMI 2022-04-06 14:41:00 24.80 kg/m2 [facility] Systolic blood pressure 2022-01-20 02:27:00 121 mm[Hg] [facility] Diastolic blood pressure 2022-01-20 02:27:00 75 mm[Hg] [facility] Heart rate 2022-01-20 02:27:00 79 /min [facility] Respiratory rate 2022-01-20 02:27:00 12 /min [facility] Oxygen saturation in Arterial blood by Pulse oximetry 2022-01-20 02:27:00 98 /min [facility] Body temperature 2022-01-19 22:19:00 36.44 Theresa [facility] Body weight 2022-01-19 22:19:00 60.328 kg [facility] BMI 2022-01-19 22:19:00 23.56 kg/m2 [facility] Systolic blood pressure 2021-12-30 20:52:00 134 mm[Hg] [facility] Diastolic blood pressure 2021-12-30 20:52:00 76 mm[Hg] [facility] Heart rate 2021-12-30 20:52:00 67 /min [facility] Body temperature 2021-12-30 20:26:00 36.67 Theresa [facility] Oxygen saturation in Arterial blood by Pulse oximetry 2021-12-30 20:26:00 99 /min [facility] Respiratory rate 2021-12-30 16:21:00 18 /min [facility] Body weight 2021-12-30 08:27:00 60.464 kg [facility] BMI 2021-12-30 08:27:00 23.61 kg/m2 [facility] Body height 2021-12-29 01:29:00 160 cm [facility] Procedures Procedure Date / Time Performed Performing Clinician Source MAGNESIUM 2022-11-11 19:05:00 Hemant Klein [facility] BASIC METABOLIC PANEL (NA, K, CL, CO2, GLUCOSE, BUN, CREATININE, CA) 2022-11-11 19:05:00 Hemant Klein [facility] ETHANOL 2022-11-11 19:05:00 Hemant Klein [facility] CBC WITH DIFF 2022-11-11 19:05:00 Hemant Klein [facility] POCT GLUCOSE (AUTOMATED) 2022-08-11 13:36:00 Arvind Prado [facility] PHOSPHORUS 2022-08-11 10:35:00 Jessica Prado [facility] MAGNESIUM 2022-08-11 10:35:00 [facility] AMMONIA, PLASMA 2022-08-11 10:35:00 Jessica Prado [facility] COMP. METABOLIC PANEL ([id number]) 2022-08-11 10:35:00 Jessica Prado [facility] CBC WITH DIFF 2022-08-11 10:35:00 Oswald Murphy [facility] POCT GLUCOSE (AUTOMATED) 2022-08-11 02:15:00 Arvind Prado [facility] POCT GLUCOSE (AUTOMATED) 2022-08-10 23:10:00 Arvind Prado [facility] POCT GLUCOSE (AUTOMATED) 2022-08-10 18:20:00 Arvind Prado [facility] POCT GLUCOSE (AUTOMATED) 2022-08-10 14:11:00 Arvind Prado [facility] POCT GLUCOSE (AUTOMATED) 2022-08-10 10:59:00 Gopal Driscoll [facility] COVID-19 (ID NOW RAPID TESTING) 2022-08-10 07:17:00 Rayray Driscoll [facility] LAB ONLY COVID INTERPRETATION 2022-08-10 07:17:00 Rayray Driscoll [facility] HB ECG ROUTINE & RHYTHM STRIP 2022-08-10 06:03:48 Rayray Driscoll [facility] URINALYSIS 2022-08-10 05:46:00 [facility] URINE DRUG (IMMUNOASSAY) - COMPREHENSIVE DRUG SCREEN W/O REFLEX 2022-08-10 05:45:00 Rayray Driscoll [facility] CREATINE KINASE 2022-08-10 05:16:00 [facility] 2022-08-10 05:16:00 Rayray Driscoll [facility] MAGNESIUM 2022-08-10 05:16:00 Rayray Driscoll [facility] TROPONIN I 2022-08-10 05:16:00 Rayray Driscoll [facility] COMP. METABOLIC PANEL ([id number]) 2022-08-10 05:16:00 Rayray Driscoll [facility] ETHANOL 2022-08-10 05:16:00 Rayray Driscoll [facility] CBC WITH DIFF 2022-08-10 05:16:00 Rayray Driscoll [facility] N-TERMINAL PRO-BNP 2022-08-10 05:16:00 Rayray Driscoll [facility] CRITICAL CARE 2022-08-10 04:52:00 Rayray Driscoll [facility] XR CHEST 1 VW 2022-04-06 14:51:50 [facility] 2022-04-06 14:42:00 [facility] TROPONIN I 2022-04-06 14:42:00 Diya Chowdhury [facility] COMP. METABOLIC PANEL ([id number]) 2022-04-06 14:42:00 Diya Chowdhury [facility] CBC WITH DIFF 2022-04-06 14:42:00 [facility] PROT[facility] TIME / INR 2022-04-06 14:42:00 Diya Chowdhury [facility] ACTIVATED PARTIAL THRMPLAS NELDA 2022-04-06 14:42:00 Diya Chowdhury [facility] LACTIC ACID WHOLE BLOOD 2022-01-20 00:22:00 Leticia Baldwin [facility] URINE DRUG (IMMUNOASSAY) - COMPREHENSIVE DRUG SCREEN 2022-01-19 23:10:00 Leticia Baldwin [facility] URINALYSIS 2022-01-19 23:10:00 Leticia Baldwin [facility] TROPONIN I 2022-01-19 23:00:00 Leticia Baldwin [facility] COMP. METABOLIC PANEL (48738) 2022-01-19 23:00:00 Leticia Baldwin [facility] LITHIUM 2022-01-19 23:00:00 Leticia Baldwin [facility] ETHANOL 2022-01-19 23:00:00 Leticia Baldwin [facility] CBC WITH DIFF 2022-01-19 23:00:00 Leticia Baldwin [facility] COVID-19 (ID NOW RAPID TESTING) 2022-01-19 23:00:00 Leticia Baldwin [facility] CT HEAD WO CONTRAST 2022-01-19 22:49:00 Leticia Baldwin [facility] XR CHEST 1 VW 2022-01-19 22:41:00 Leticia Baldwin [facility] POCT GLUCOSE (AUTOMATED) 2022-01-19 22:25:00 Leticia Baldwin [facility] POCT GLUCOSE (AUTOMATED) 2021-12-30 21:55:00 Arvind Prado [facility] POCT GLUCOSE (AUTOMATED) 2021-12-30 16:21:00 Arvind Prado [facility] POCT GLUCOSE (AUTOMATED) 2021-12-30 12:30:00 Arvind Prado [facility] HEPATIC FUNCTION PANEL (55670) (ALB,T.PRO,BILI T,BU/BC,ALT,AST,ALK PHOS) 2021-12-30 09:28:00 Maira Gaitan [facility] POCT GLUCOSE (AUTOMATED) 2021-12-30 02:11:00 Arvind Prado [facility] POCT GLUCOSE (AUTOMATED) 2021-12-29 21:41:00 Arvind Prado [facility] POCT GLUCOSE (AUTOMATED) 2021-12-29 16:37:00 Arvind Prado [facility] TRANSTHORACIC ECHO (TTE) COMPLETE W/ CONTRAST 2021-12-29 13:05:00 Jessica Prado [facility] POCT GLUCOSE (AUTOMATED) 2021-12-29 12:41:00 Arvind Prado [facility] TROPONIN I 2021-12-29 09:42:00 Jessica Prado [facility] TROPONIN I 2021-12-29 04:55:00 [facility] [place] CT HEAD WO CONTRAST 2021-12-28 21:18:22 Poppy Renteria [facility] AMMONIA, PLASMA 2021-12-28 21:00:00 Pia Renteria [facility] COVID-19 (ID NOW RAPID TESTING) 2021-12-28 20:42:00 Pia Renteria [facility] LAB ONLY COVID INTERPRETATION 2021-12-28 20:42:00 Pia Renteria [facility] URINE DRUG (IMMUNOASSAY) - COMPREHENSIVE DRUG SCREEN W/O REFLEX 2021-12-28 20:42:00 Pia Renteria [facility] URINALYSIS 2021-12-28 20:40:00 Pia Renteria [facility] N-TERMINAL PRO-BNP 2021-12-28 20:40:00 Corina Renteria [facility] TROPONIN I 2021-12-28 20:40:00 Pia Renteria [facility] THYROID STIMULATING HORMONE 2021-12-28 20:40:00 Jessica Prado [facility] COMP. METABOLIC PANEL ([id number]) 2021-12-28 20:40:00 Pia Renteria [facility] LIPID PANEL (14313)(TOTAL CHOLESTEROL, TRIGLYCERIDES, HDL) 2021-12-28 20:40:00 Demetrius Langford [facility] ETHANOL 2021-12-28 20:40:00 Demetrius Langford [facility] CBC WITH DIFF 2021-12-28 20:40:00 Pia Renteria [facility] GLYCOSYLATED HEMOGLOBIN (A1C) 2021-12-28 20:40:00 Jessica Prado [facility] PROTHROMBIN TIME / INR 2021-12-28 20:40:00 Lesly Renteria [facility] XR CHEST 1 VW 2021-12-28 20:16:00 Pia Renteria [facility] HB ECG ROUTINE & RHYTHM STRIP 2021-12-28 20:04:59 Pia Renteria [facility] Encounters Start Date/Time End Date/Time Encounter Type Admission Type Attending [facility] Care Facility Care Department Encounter ID Source 2021-09-17 16:45:00 Inpatient [facility] [id number] [facility] 2020-06-06 16:07:00 Inpatient [facility] [id number] [facility] 2020-06-06 06:20:00 Inpatient [facility] [id number] [facility] 2020-06-05 19:35:00 Inpatient [facility] [id number] [facility] 2020-05-23 19:53:00 Inpatient [facility] [id number] [facility] 2020-05-23 19:53:00 Inpatient [facility] [id number] [facility] 2022-11-11 13:50:00 2022-11-11 16:07:00 Emergency X HEMANT KLEIN [facility] ERT [id number] [facility] 2022-11-11 13:50:00 2022-11-11 16:07:00 Emergency Jessica, Hemant [facility] [id number] [id number] [facility] 2022-10-14 20:59:00 2022-10-14 20:59:00 Emergency [facility] [id number] [facility] 2022-10-14 20:59:00 2022-10-14 20:59:00 Emergency Emergency Pan Pinto [facility] [id number] [facility] 2022-08-09 22:59:00 2022-08-11 13:02:00 Outpatient X JESSICA PRADO [facility] [id number] [facility] 2022-08-09 22:59:00 2022-08-11 13:02:00 Emergency Rayray Driscoll [facility] [id number] [id number] [id number] [facility] 2022-04-06 09:38:00 2022-04-06 11:42:00 Emergency X DIYA CHOWDHURY [facility] ERT [id number] [facility] 2022-04-06 09:38:00 2022-04-06 11:42:00 Emergency Toddjose l Diya [facility] [id number] [id number] [id number] [id number] [facility] 2022-03-07 12:38:00 2022-03-07 12:38:00 Emergency [facility] [id number] [facility] 2022-03-07 12:38:00 2022-03-07 12:38:00 Emergency Emergency Fidel Cuellar [facility] [id number] [facility] 2022-01-19 17:18:00 2022-01-19 22:00:00 Emergency X NNEKA DIRK [facility] ERT [id number] [facility] 2022-01-19 17:18:00 2022-01-19 22:00:00 Emergency Leticia Baldwinveronica Amado [facility] [id number] [id number] 4.2.7.2.686 [id number] [facility] 2021-12-31 00:00:00 2021-12-31 00:00:00 Transition of Care Faye Portillo [id number] [id number] 4.2.7.2.686 [id number] [facility] 2021-12-28 14:53:00 2021-12-30 17:42:00 Inpatient X JESSICA PRADO [facility] [id number] [facility] 2021-12-28 14:53:00 2021-12-30 17:42:00 Hospital Encounter Pia Renteria Jelani [facility] [id number] [id number] [id number] [id number] [facility] 2021-09-17 16:47:00 2021-09-17 16:47:00 Emergency [facility] [id number] [place] [address] 2020-06-06 16:07:00 2020-06-06 16:07:00 Emergency [facility] [id number] [facility] Results Test Description Test Time Test Comments Results Resul t Comments Source ETHANOL 2022-11-11 19:45:56 ALCOHOL<10mg/dL0 11/11/2022 2:45 [facility] [id number] Toxic>100 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 [facility] 19:41:47* Test Item Value Reference Range Interpretation Comme nts MAGNESIUM (test code = 6430282659) 1.8 mg/dL 1.7-2.4 Lab Interpretation (test cod e = 69600-5) [facility] [id number] 19:25:26* Test Item Value Reference Range Interpretation [...] 33.9 g/dL 31.2-35.0 RDW-SD (test code = 52100-7) 46.0 fL 38.5-51.6 RDW-CV (test code = 788-0) 13.5 % 12.1-15.4 PLT (test code = 777-3) 237 See_Comment [Automated messa ge] The system which generated this result transmitted reference range: 150 - 328 10*3/?L. The reference range was not used to interpret this result as normal/abnormal. MPV (test code = 34337-8) 8.9 fL 9.8-13.0 L NRBC/100 WBC (test code = 7835652686) 0.0 See_Comment [Automated me ssage] The system which generated this result transmitted reference range: 0.0 - 10.0 /100 WBCs. The reference range was not used to interpret this result as normal/abnormal. NRBC x10^3 (test code = 2964221061) See_Comment [Automated messa ge] The system which generated this result transmitted reference range: 10*3/?L. The reference range was not used to interpret this result as normal/abnormal. GRAN MAT (NEUT) % (test code = 770-8) 71.2 % IMM GRAN % (test code = 2125508561) 0.30 % LYMPH % (test code = 736-9) 18.2 % MONO % (test code = 5905-5) 8.4 % EOS % (test code = 713-8) 1.0 % BASO % (test code = 706-2) 0.9 % GRAN MAT x10^3(ANC) (test code = 6119989757) 4.86 10*3/uL 1.99-6.95 IMM GRAN x10^3 (test code = 6983108088) 0.00-0.06 LYMPH x10^3 (test code = 731-0) 1.24 10*3/uL 1.09-3.23 MONO x10^3 (test code = 742-7) 0.57 10*3/uL 0.36-1.02 EOS x10^3 (test code = 711-2) 0.07 10*3/uL 0.06-0.53 BASO x10^3 (test code = 704-7) 0.06 10*3/uL 0.01-0.09 Lab Interpretation (test code = 89307-1) [facility] Rflx Cult/[id number] 22:20:00* Test Item Value Reference Range Interpretation Comme nts Color,Urine (test code = UCOL) Yellow Yellow Clarity,Urine (test code = UCLAR) Clear Clear Ph, Urine (test code = UPH) 7.0 5.0-9.0 N Specific [place],Urine (test code = USG) 1.020 1.005-1.030 N [...] code = ULEU) Negative mg/dL Negative Drug Screen,[id number] 22:20:00* Test Item Value Reference Range Interpretation [...] UPROP) Negative Negative Complete Blood Count Auto [id number] 21:21:00* Test Item Value Reference Range Interpretation [...] code = NRBCP) 0 % Comprehensive Metabolic [id number] 21:21:00* Test Item Value Reference Range Interpretation [...] a race coefficient. Additional information canbe found at:[email or web address] [email or web address]_flyer 5.pdf ([email or web address]) [Automated message] The system [...] = ALP) 134 U/L 46-116 H Ethanol [id number] 21:21:00* Test Item Value Reference Range Interpretation Comme nts Ethanol (test code = ETOH) < 3 mg/dL The pharmacologi yudy response to blood alcohol levels mayvary from individual to individual. The fatal concentrationhas been reported to be >400mg/dL. POCT GLUCOSE (AUTOMATED)2022-08-11 13:40:35* Test Item Value Reference Range Interpretation Comme [facility] POCT GLU (test code = 2336759972) 121 mg/dL 70-110 H Lab Interpretation (test cod e = 23424-7) Abnormal [facility] GLUCOSE (AUTOMATED)2022-08-11 02:18:58* Test Item Value Reference Range Interpretation Comme [facility] POCT GLU (test code = 0741368630) 183 mg/dL 70-110 H Lab Interpretation (test cod e = 51845-6) Abnormal [facility] GLUCOSE (AUTOMATED)2022-08-10 23:16:11* Test Item Value Reference Range Interpretation Comme nts POCT GLU (test code = 8202223710) 176 mg/dL 70-110 H Lab Interpretation (test cod e = 98235-0) Abnormal [facility] GLUCOSE (AUTOMATED)2022-08-10 18:22:51* Test Item Value Reference Range Interpretation Comme nts POCT GLU (test code = 0239550294) 165 mg/dL 70-110 H Lab Interpretation (test cod e = 52945-2) Abnormal [facility] GLUCOSE (AUTOMATED)2022-08-10 14:18:05* Test Item Value Reference Range Interpretation Comme nts POCT GLU (test code = 8899906181) 138 mg/dL 70-110 H Lab Interpretation (test cod e = 78495-2) Abnormal [facility] GLUCOSE (AUTOMATED)2022-08-10 11:01:21* Test Item Value Reference Range Interpretation Comme nts POCT GLU (test code = 3681769342) 143 mg/dL 70-110 H Lab Interpretation (test cod e = 65638-1) [facility] [id number] 06:51:18* Test Item Value Reference Range Interpretation Comme nts TROPONIN I (test code = 7584639159) 0.008 ng/mL <=0.034 JUAN ALBERTO (test code [...] of biotin. Lab Interpretation (test code = 94892-5) Normal [facility] [id number] 06:47:37* Test Item Value Reference Range Interpretation Comme nts NT-proBNP (test code = 3200692380) 37 pg/mL <=125 JUAN ALBERTO (test code = JUAN ALBERTO) Biotin has been reported to cause a negative bias, interpret results relative to patient's use of biotin. Lab Interpretation (test code = 58818-2) [facility] 06:25:52 ALCOHOL<10mg/dL08/10/2022 12:25 AM [facility]<10 [id number] Toxic>100 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 Fatalities ReportedEast[facility] HospitalCOMP. METABOLIC PANEL ([id number])2022-08-10 06:19:15* Test Item Value Reference Range Interpretation Comme nts NA (test code = 5568309443) 135 mmol/L 135-145 K (test code = 2462786871) 4.3 mmol/L 3.5-5.0 CL (test code = 2480055625) 98 mmol/L 98-108 CO2 TOTAL (test code = 7183522465) 30 mmol/L 23-31 AGAP (test code = 7257509216) 7 2-16 BUN (test code = 2464702748) 11 mg/dL 7-23 GLUCOSE (test code = 6369906896) 153 mg/dL 70-110 H CREATININE (test code = 0098542363) 0.77 mg/dL 0.60-1.25 TOTAL BILI (test code = 8218468396) 0.9 mg/dL 0.1-1.1 CALCIUM (test code = 9843715081) 10.0 mg/dL 8.6-10.6 T PROTEIN (test code = 3908625801) 7.7 g/dL 6.3-8.2 ALBUMIN (test code = 2412964040) 4.6 g/dL 3.5-5.0 ALK PHOS (test code = 0705084670) 92 U/L 34-122 ALTv (test code = 1742-6) 35 U/L 5-50 AST(SGOT) (test code = 4435624895) 42 U/L 13-40 H eGFR (test code = 7964286133) 106.1 mL/min/1.73m2 JUAN ALBERTO (test code = [...] imaging tests). Lab Interpretation (test code = 69166-8) [facility]MAG[facility]UM[facility] 06:19:15* Test Item Value Reference Range Interpretation Comme nts MAGNESIUM (test code = 1103257354) 2.2 mg/dL 1.7-2.4 Lab Interpretation (test cod e = 97638-9) [facility] 06:18:55* Test Item Value Reference Range Interpretation Comme nts LIPASE (test code = 5031633521) 18 U/L 0-220 Lab Interpretation (test cod e = 46926-7) Normal [facility] HospitalCREATINE [id number] 06:18:55* Test Item Value Reference Range Interpretation Comme nts CK (test code = 5727462996) 174 U/L 33-194 Lab Interpretation (test cod e = 37827-0) [facility] [id number] 06:02:35* Test Item Value Reference Range Interpretation [...] 32.4 g/dL 31.2-35.0 RDW-SD (test code = 77767-7) 50.2 fL 38.5-51.6 RDW-CV (test code = 788-0) 14.3 % 12.1-15.4 PLT (test code = 777-3) 241 See_Comment [Automated messa ge] The system which generated this result transmitted reference range: 150 - 328 10*3/?L. The reference range was not used to interpret this result as normal/abnormal. MPV (test code = 22425-8) 8.6 fL 9.8-13.0 L NRBC/100 WBC (test code = 2479113434) 0.0 See_Comment [Automated Dogi ssage] The system which generated this result transmitted reference range: 0.0 - 10.0 /100 WBCs. The reference range was not used to interpret this result as normal/abnormal. NRBC x10^3 (test code = 7918675916) See_Comment [Automated messa ge] The system which generated this result transmitted reference range: 10*3/?L. The reference range was not used to interpret this result as normal/abnormal. GRAN MAT (NEUT) % (test code = 770-8) 63.9 % IMM GRAN % (test code = 9783103825) 0.50 % LYMPH % (test code = 736-9) 17.6 % MONO % (test code = 5905-5) 16.5 % EOS % (test code = 713-8) 0.7 % BASO % (test code = 706-2) 0.8 % GRAN MAT x10^3(ANC) (test code = 4270607568) 4.79 10*3/uL 1.99-6.95 IMM GRAN x10^3 (test code = 3548703677) 0.04 10*3/uL 0.00-0.06 LYMPH x10^3 (test code = 731-0) 1.32 10*3/uL 1.09-3.23 MONO x10^3 (test code = 742-7) 1.24 10*3/uL 0.36-1.02 H EOS x10^3 (test code = 711-2) 0.05 10*3/uL 0.06-0.53 L BASO x10^3 (test code = 704-7) 0.06 10*3/uL 0.01-0.09 Lab Interpretation (test code = 39142-8) Abnormal [facility] [id number] 15:15:32* Test Item Value Reference Range Interpretation Comments TROPONIN I (test code = 2308770363) 0.007 ng/mL See_Comment [Automated message] The system [...] of biotin. Lab Interpretation (test code = 79281-6) Normal [facility] HospitalaPTT2022-10-16 15:08:29* Test Item Value Reference Range Interpretation Comme [facility] APTT Patient (test code = 3173-2) See_Comment [Automated message] The system which generated this result transmitted reference range: 23 - 38 Seconds. The reference range was not used to interpret this result as normal/abnormal. JUAN ALBERTO (test code = JUAN ALBERTO) The [facility] patient population mean normal value for aPTT is 30 seconds. Lab Interpretation (test code = 66451-0) Normal [facility] HospitalPROTHROMBIN TIME / [id number] 15:06:28* Test Item Value Reference Range Interpretation Comme [facility] PROTIME PATIENT (test code = 5964-2) See_Comment [Automated messa ge] The system which generated this result transmitted reference range: 12.0 - 14.7 Seconds. The reference range was not used to interpret this result as normal/abnormal. INR (test code = 6301-6) Normal INR <1.1; Warfarin Therapeutic range 2.0 to 3.0 or 2.5 to 3.5, depending upon the indications. Lab Interpretation (test code = 53046-2) Normal [facility] HospitalCOMP. METABOLIC PANEL (96696)2022-04-06 15:03:31* Test Item Value Reference Range Interpretation Comme [facility] NA (test code = 2597949187) 136 mmol/L 135-145 K (test code = 5720390950) 5.0 mmol/L 3.5-5 CL (test code = 1822960380) 104 mmol/L 98-108 CO2 TOTAL (test code = 6394365206) 21 mmol/L 23-31 L AGAP (test code = 2138619014) 2-16 BUN (test code = 6790620282) 11 mg/dL 7-23 GLUCOSE (test code = 1869221518) 162 mg/dL 70-110 H CREATININE (test code = 8123309042) 0.52 mg/dL 0.6-1.25 L TOTAL BILI (test code = 3796845414) 1.0 mg/dL 0.1-1.1 CALCIUM (test code = 4675868289) 9.3 mg/dL 8.6-10.6 T PROTEIN (test code = 5925523482) 7.4 g/dL 6.3-8.2 ALBUMIN (test code = 0596654048) 4.4 g/dL 3.5-5 ALK PHOS (test code = 6373146450) 134 U/L 34-122 H ALTv (test code = 1742-6) 17 U/L 5-50 AST(SGOT) (test code = 2112659052) 38 U/L 13-40 eGFR (test code = 8168799532) mL/min/1.73m2 JUAN ALBERTO (test code = JUAN [...] imaging tests). Lab Interpretation (test code = 26505-8) [facility], [id number] 15:03:31* Test Item Value Reference Range Interpretation Comme nts LIPASE (test code = 8482683190) 29 U/L 0-220 Lab Interpretation (test cod e = 13007-3) [facility] WITH [id number] 14:51:49* Test Item Value Reference Range Interpretation [...] 34.0 g/dL 31.2-35 RDW-SD (test code = 65764-7) 45.9 fL 38.5-51.6 RDW-CV (test code = 788-0) 13.3 % 12.1-15.4 PLT (test code = 777-3) See_Comment [Automated messa ge] The system which generated this result transmitted reference range: 150 - 328 10*3/?L. The reference range was not used to interpret this result as normal/abnormal. MPV (test code = 34585-2) 8.4 fL 9.8-13 L NRBC/100 WBC (test code = 8377261005) See_Comment [Automated Dogi ssage] The system which generated this result transmitted reference range: 0.0 - 10.0 /100 WBCs. The reference range was not used to interpret this result as normal/abnormal. NRBC x10^3 (test code = 9733857081) See_Comment [Automated messa ge] The system which generated this result transmitted reference range: 10*3/?L. The reference range was not used to interpret this result as normal/abnormal. GRAN MAT (NEUT) % (test code = 770-8) 63.0 % IMM GRAN % (test code = 2460228283) 0.50 % LYMPH % (test code = 736-9) 25.2 % MONO % (test code = 5905-5) 9.8 % EOS % (test code = 713-8) 0.3 % BASO % (test code = 706-2) 1.2 % GRAN MAT x10^3(ANC) (test code = 5744307816) 3.73 10*3/uL 1.99-6.95 IMM GRAN x10^3 (test code = 5899469900) 0.03 10*3/uL 0-0.06 LYMPH x10^3 (test code = 731-0) 1.49 10*3/uL 1.09-3.23 MONO x10^3 (test code = 742-7) 0.58 10*3/uL 0.36-1.02 EOS x10^3 (test code = 711-2) 0.06-0.53 L BASO x10^3 (test code = 704-7) 0.07 10*3/uL 0.01-0.09 Lab Interpretation (test code = 54360-8) Abnormal [facility] HospitalUA, Urinalysis Rflx Cult/Ioxjr5424-70-73 13:53:00* Test Item Value Reference Range Interpretation Comme nts Color,Urine (test code = UCOL) Yellow Yellow Clarity,Urine (test code = UCLAR) Cloudy Clear A Ph, Urine (test code = UPH) 7.5 5.0-9.0 N Specific [place],Urine (test code = USG) 1.025 1.005-1.030 N [...] = ULEU) Negative mg/dL Negative UF REFLEXDrug Screen,Sjvlz5356-29-84 13:53:00* Test Item Value Reference Range Interpretation [...] UPROP) Negative Negative Complete Blood Count Auto Jbuq3834-71-21 12:58:00* Test Item Value Reference Range Interpretation [...] = NRBCP) 0 % Coronavirus PCR, COVID19 Iyqzu3742-77-87 12:58:00* Test Item Value Reference Range Interpretation Comme nts Coronavirus PCR, COVID19 Rapid (test code = SARSCOV2) Coronavirus PCR, COVID19 Rapid (test code = VMKPPFO60.1) Reference Range: Negative SARS-CoV-2 PCR Result: (test code = SARS-CoV-2 PCR Result:) Negative by RT-PCR COVID-19 Status: AsymptomaticComprehensive Metabolic Phljq9929-01-73 12:58:00* Test Item Value Reference Range Interpretation [...] = ALP) 144 U/L 46-116 H Ethanol Botav3359-74-22 12:58:00* Test Item Value Reference Range Interpretation Comme nts Ethanol (test code = ETOH) < 3 mg/dL The pharmacologi yudy response to blood alcohol levels mayvary from individual to individual. The fatal concentrationhas been reported to be >400mg/dL. [id number] 01:47:56* Test Item Value Reference Range Interpretation Comme nts Goff (test code = 0699235215) 0.7 mmol/L 0.6-1.2 JUAN ALBERTO (test code = JUAN ALBERTO) Toxic Range: ? Greater than 1.2 mmol/L Lab Interpretation (test code = 08692-5) Normal [facility] HospitalTROPONIN [id number] 00:26:53* Test Item Value Reference Range Interpretation Comments TROPONIN I (test code = 6880599189) 0.002 ng/mL See_Comment [Automated message] The system [...] of biotin. Lab Interpretation (test code = 58829-8) Normal [facility] HospitalETHANOL2022-08-01 00:18:52 ALCOHOL<10mg/dL01/19/2022 7:18 PM [facility] Rngxzdzs26-503 Toxic>100 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 Fatalities ReportedEastland [facility] HospitalCOMP. METABOLIC PANEL (47454)2022-01-20 00:16:16* Test Item Value Reference Range Interpretation Comme nts NA (test code = 7228789522) 137 mmol/L 135-145 K (test code = 7972582330) 4.5 mmol/L 3.5-5 CL (test code = 9122357756) 103 mmol/L 98-108 CO2 TOTAL (test code = 7382300428) 26 mmol/L 23-31 AGAP (test code = 2978137194) 2-16 BUN (test code = 4942068537) 10 mg/dL 7-23 GLUCOSE (test code = 3968231710) 121 mg/dL 70-110 H CREATININE (test code = 2720099660) 0.65 mg/dL 0.6-1.25 TOTAL BILI (test code = 5272144465) 0.8 mg/dL 0.1-1.1 CALCIUM (test code = 5183489200) 11.4 mg/dL 8.6-10.6 H T PROTEIN (test code = 9089093205) 7.2 g/dL 6.3-8.2 ALBUMIN (test code = 6396752595) 4.6 g/dL 3.5-5 ALK PHOS (test code = 3198666002) 112 U/L 34-122 ALTv (test code = 1742-6) 19 U/L 5-50 AST(SGOT) (test code = 3244748715) 26 U/L 13-40 eGFR (test code = 4614176661) mL/min/1.73m2 JUAN ALBERTO (test code = JUAN [...] imaging tests). Lab Interpretation (test code = 98670-9) [facility] WITH [id number] 23:43:54* Test Item Value Reference Range Interpretation Comme nts WBC (test code = 6690-2) See_Comment [Automated messa ge] The system which generated this result transmitted reference range: 4.20 - 10.70 10*3/?L. The reference range was not used to interpret this result as normal/abnormal. RBC (test code = 789-8) See_Comment [Automated cVidyaa ge] The system which generated this result [...] 34.4 g/dL 31.2-35 RDW-SD (test code = 05001-9) 44.0 fL 38.5-51.6 RDW-CV (test code = 788-0) 12.6 % 12.1-15.4 PLT (test code = 777-3) See_Comment [Automated cVidyaa ge] The system which generated this result transmitted reference range: 150 - 328 10*3/?L. The reference range was not used to interpret this result as normal/abnormal. MPV (test code = 17727-2) 9.1 fL 9.8-13 L NRBC/100 WBC (test code = 7241977658) See_Comment [Automated Dogi ssage] The system which generated this result transmitted reference range: 0.0 - 10.0 /100 WBCs. The reference range was not used to interpret this result as normal/abnormal. NRBC x10^3 (test code = 4604532379) See_Comment [Automated cVidyaa ge] The system which generated this result transmitted reference range: 10*3/?L. The reference range was not used to interpret this result as normal/abnormal. GRAN MAT (NEUT) % (test code = 770-8) 69.8 % IMM GRAN % (test code = 8796946369) 0.40 % LYMPH % (test code = 736-9) 18.0 % MONO % (test code = 5905-5) 10.9 % EOS % (test code = 713-8) 0.1 % BASO % (test code = 706-2) 0.8 % GRAN MAT x10^3(ANC) (test code = 1638581666) 5.58 10*3/uL 1.99-6.95 IMM GRAN x10^3 (test code = 0124943033) 0.03 10*3/uL 0-0.06 LYMPH x10^3 (test code = 731-0) 1.44 10*3/uL 1.09-3.23 MONO x10^3 (test code = 742-7) 0.87 10*3/uL 0.36-1.02 EOS x10^3 (test code = 711-2) 0.06-0.53 L BASO x10^3 (test code = 704-7) 0.06 10*3/uL 0.01-0.09 Lab Interpretation (test code = 39808-0) Abnormal [facility] GLUCOSE (AUTOMATED)2022-01-19 22:27:41* Test Item Value Reference Range Interpretation Comme nts POCT GLU (test code = 7396881085) 123 mg/dL 70-110 H Lab Interpretation (test cod e = 73440-4) Abnormal [facility] GLUCOSE (AUTOMATED)2021-12-30 22:08:16* Test Item Value Reference Range Interpretation Comme nts POCT GLU (test code = 9813802219) 167 mg/dL 70-110 H Lab Interpretation (test cod e = 48153-9) Abnormal [facility] GLUCOSE (AUTOMATED)2021-12-30 16:50:40* Test Item Value Reference Range Interpretation Comme nts POCT GLU (test code = 5263524808) 154 mg/dL 70-110 H Lab Interpretation (test cod e = 50796-4) Abnormal [facility] GLUCOSE (AUTOMATED)2021-12-30 12:38:43* Test Item Value Reference Range Interpretation Comme nts POCT GLU (test code = 3514297782) 164 mg/dL 70-110 H Lab Interpretation (test cod e = 18550-2) Abnormal [facility] GLUCOSE (AUTOMATED)2021-12-30 02:14:58* Test Item Value Reference Range Interpretation Comme nts POCT GLU (test code = 8383544982) 220 mg/dL 70-110 H Lab Interpretation (test cod e = 33941-2) Abnormal [facility] GLUCOSE (AUTOMATED)2021-12-29 21:50:02* Test Item Value Reference Range Interpretation Comme nts POCT GLU (test code = 3967926915) 191 mg/dL 70-110 H Lab Interpretation (test cod e = 42668-7) Abnormal [facility] GLUCOSE (AUTOMATED)2021-12-29 20:15:01* Test Item Value Reference Range Interpretation Comme nts POCT GLU (test code = 7030220567) 163 mg/dL 70-110 H Lab Interpretation (test cod e = 49416-9) Abnormal [facility] HospitalTransthoracic echo (TTE)2021-12-29 19:12:22* Test Item Value Reference Range Interpretation Comme nts Height (test code = 8644576616) in Weight (test code = 9984622825) lbs Systolic BP (test code = 6186979544) mmHg Diastolic BP (test code = 0161335914) mmHg Heart Rate (test code = 4083947608) bpm BSA (test code = 2820535837) 1.62 m2 Ao root annulus (test code = 6978322589) 2.45 cm Ao root diam (test code = 1505873127) 2.45 cm Aortic root (test code = 1879765325) 2.45 cm ACS (test code = 2725282650) 1.66 cm LA size (test code = 2242542986) 3.2 cm LVOT diameter (test code = 7467767158) 1.95 cm LVIDD (test code = 3349339300) 3.60 cm IVS (test code = 6323136178) 0.94 cm Interventricular Septum Diastolic Thickness by 2D (test code = 7040902) 0.94 cm LVPWD (test code = 4125131088) 0.80 cm PW (test code = 2906636242) 0.80 cm 0.6-1.1 EF(Teich) (test code = 7176693385) 52.80 % LVIDS (test code = 9432411646) 2.60 cm FS (test code = 3976706268) 27 % EF - 2D (test code = 05647469) 52.80 % LAV(MOD-sp4) (test code = 7560113557) 16.80 mL MV Peak E Ojvany (test code = 4250174925) 46.1 cm/s E wave decelartion time (test code = 5212270702) 0.31 s MV Peak A Jovany (test code = 1242906926) 58.1 cm/s E/A ratio (test code = 9256511351) ratio MV E/e' septal (test code = 6427984633) 5.7 cm/s Tapse (test code = 7866732049) 1.60 cm LVOT stroke volume (test code = 0435059177) 52.10 cm3 LVOT peak jovany (test code = 1912208106) 110.6 cm/s LVOT mn grad (test code = 0837269711) mmHg AV LVOT peak gradient (test code = 0514739694) mmHg LVOT peak VTI (test code = 0399498059) 17.4 cm LV V1 mean (test code = 6925821708) 66.10 cm/s Aortic valve mean velocity (test code = 9013896376) 73.0 cm/s Ao peak jovany (test code = 6635938682) 124.6 cm/s Ao VTI (test code = 9766320090) 18.6 cm AV area by cont VTI (test code = 9482303974) 2.8 cm2 AV area peak jovany (test code = 9732789402) 2.7 cm2 Ao max PG (test code = 2092290740) 6.20 mm[Hg] AV peak gradient (test code = 2619586880) mmHg AV valve area (test code = 3704998212) 2.80 cm2 AV mean gradient (test code = 7193163414) mmHg Radiology Study observation (narrative) (test code = 45334-3) JUAN ALBERTO (test code = JUAN ALBERTO) [...] mL of Lumason ultrasound enhancing agent used. [facility] ([facility]ATED)2021-12-29 12:50:31* Test Item Value Reference Range Interpretation Comme nts POCT GLU (test code = 2933863306) 141 mg/dL 70-110 H Lab Interpretation (test cod e = 12295-5) Abnormal [facility] HospitalTroponin [id number] 10:38:31* Test Item Value Reference Range Interpretation Comments TROPONIN I (test code = 5833019187) 0.003 ng/mL See_Comment [Automated message] The system [...] of biotin. Lab Interpretation (test code = 45196-4) Normal [facility] HospitalLIPID PANEL (35905)(TOTAL CHOLESTEROL, TRIGLYCERIDES, HDL)2021-12-29 05:56:47* Test Item Value Reference Range Interpretation Comme nts CHOL (test code = 9133350406) 168 mg/dL 120-200 HDL (test code = 5930733487) 102 mg/dL See_Comment [Automated cVidyaa ge] The system which generated this result transmitted reference range: >=40. The reference range was not used to interpret this result as normal/abnormal. HDLC RATIO (test code = 9766934895) See_Comment [Automated cVidyaa ge] The system which generated this result transmitted reference range: <=5.0. The reference range was not used to interpret this result as normal/abnormal. TRIG (test code = 0140411803) 55 mg/dL 30-170 LDL CHOL (test code = 01660-7) 55 mg/dL See_Comment [Automated cVidyaa ge] The system which generated this result transmitted reference range: <=160. The reference range was not used to interpret this result as normal/abnormal. VLDL (test code = 6241383203) 11 mg/dL 5-60 Lab Interpretation (test code = 97326-2) Normal [facility] HospitalThyroid Stimulating Hormone (TSH)2021-12-29 05:40:29* Test Item Value Reference Range Interpretation Comme nts TSH (test code = 7103680611) See_Comment Biotin has been reported to cause a negative bias, interpret results relative to patient's use of biotin. [Automated message] The system which generated this result transmitted reference range: 0.45 - 4.70 mIU/L. The reference range was not used to interpret this result as normal/abnormal. Lab Interpretation (test code = 71830-5) Normal [facility] HospitalTroponin [id number] 05:34:29* Test Item Value Reference Range Interpretation Comments TROPONIN I (test code = 1673216405) 0.006 ng/mL See_Comment [Automated message] The system [...] of biotin. Lab Interpretation (test code = 13004-2) Normal [facility]ETHANOL2022-07-10 04:43:01 ALCOHOL<10mg/dL12/28/2021 11:43 PM [facility]ORYToxic Greater than or equal to 80 mg/dL. NOTE: Whole blood values are approximately 10% to 15% lower than serum and plasma.[facility] Glycosylated Hemoglobin (A1C)2021-12-29 01:51:44* Test Item Value Reference Range Interpretation Comme nts HGB A1C (test code = 4548-4) 6.5 % 4-5.7 H JUAN ALBERTO (test code = JUAN ALBERTO) Reference RangesNormal: <5.7%Prediabetes: 5.7 - 6.4%Diabetes: > 6.5% Lab Interpretation (test code = 65653-3) Abnormal [facility] HospitalTROPONIN [id number] 21:26:50* Test Item Value Reference Range Interpretation Comments TROPONIN I (test code = 4295910236) 0.002 ng/mL See_Comment [Automated message] The system [...] of biotin. Lab Interpretation (test code = 68713-3) Normal [facility] HospitalN-TERMINAL [id number]-UFO1176-08-09 21:23:29* Test Item Value Reference Range Interpretation Comme nts NT-proBNP (test code = 5947770044) 41 pg/mL See_Comment [Automated message] The system which generated this result transmitted reference range: <=125. The reference range was not used to interpret this result as normal/abnormal. JUAN ALBERTO (test code = JUAN ALBERTO) Biotin has been reported to cause a negative bias, interpret results relative to patient's use of biotin. Lab Interpretation (test code = 65799-1) Normal [facility] HospitalAMMONIA, [id number] 21:20:38* Test Item Value Reference Range Interpretation Comme nts AMMONIA (test code = 3088851523) 9-33 L Slight hemolysis Lab Interpretation (test code = 09815-1) Abnormal [facility] HospitalCOMP. METABOLIC PANEL (74658)2021-12-28 21:08:48* Test Item Value Reference Range Interpretation Comme nts NA (test code = 8317629372) 137 mmol/L 135-145 K (test code = 3233816603) 4.5 mmol/L 3.5-5 CL (test code = 0089670789) 97 mmol/L 98-108 L CO2 TOTAL (test code = 9463335016) 29 mmol/L 23-31 AGAP (test code = 4240005863) 2-16 BUN (test code = 8922910733) 10 mg/dL 7-23 GLUCOSE (test code = 1116056453) 188 mg/dL 70-110 H CREATININE (test code = 6733573607) 0.58 mg/dL 0.6-1.25 L TOTAL BILI (test code = 8680600932) 0.8 mg/dL 0.1-1.1 CALCIUM (test code = 8339878499) 10.5 mg/dL 8.6-10.6 T PROTEIN (test code = 9306310555) 7.6 g/dL 6.3-8.2 ALBUMIN (test code = 1427094174) 4.5 g/dL 3.5-5 ALK PHOS (test code = 2282909165) 107 U/L 34-122 ALTv (test code = 1742-6) 66 U/L 5-50 H AST(SGOT) (test code = 0499641201) 96 U/L 13-40 H eGFR (test code = 2406565190) mL/min/1.73m2 JUAN ALBERTO (test code = JUAN [...] imaging tests). Lab Interpretation (test code = 83095-2) Abnormal [facility] HospitalPROTHROMBIN TIME / [id number] 21:01:25* Test Item Value Reference Range Interpretation Comme jaelyn LUCIO PATIENT (test code = 5964-2) See_Comment [Automated Adatao] The system which generated this result transmitted reference range: 12.0 - 14.7 Seconds. The reference range was not used to interpret this result as normal/abnormal. INR (test code = 6301-6) Normal INR <1.1; Warfarin Therapeutic range 2.0 to 3.0 or 2.5 to 3.5, depending upon the indications. Lab Interpretation (test code = 24730-3) [facility] WITH [id number] 20:54:03* Test Item Value Reference Range Interpretation [...] 34.2 g/dL 31.2-35 RDW-SD (test code = 72258-5) 47.8 fL 38.5-51.6 RDW-CV (test code = 788-0) 13.3 % 12.1-15.4 PLT (test code = 777-3) See_Comment [Automated messa ge] The system which generated this result transmitted reference range: 150 - 328 10*3/?L. The reference range was not used to interpret this result as normal/abnormal. MPV (test code = 99164-0) 8.6 fL 9.8-13 L NRBC/100 WBC (test code = 0690188503) See_Comment [Automated me ssage] The system which generated this result transmitted reference range: 0.0 - 10.0 /100 WBCs. The reference range was not used to interpret this result as normal/abnormal. NRBC x10^3 (test code = 4034351179) See_Comment [Automated messa ge] The system which generated this result transmitted reference range: 10*3/?L. The reference range was not used to interpret this result as normal/abnormal. GRAN MAT (NEUT) % (test code = 770-8) 64.1 % IMM GRAN % (test code = 9087052028) 0.40 % LYMPH % (test code = 736-9) 16.6 % MONO % (test code = 5905-5) 17.2 % EOS % (test code = 713-8) 0.2 % BASO % (test code = 706-2) 1.5 % GRAN MAT x10^3(ANC) (test code = 3059870138) 3.47 10*3/uL 1.99-6.95 IMM GRAN x10^3 (test code = 4061310591) 0-0.06 LYMPH x10^3 (test code = 731-0) 0.90 10*3/uL 1.09-3.23 L MONO x10^3 (test code = 742-7) 0.93 10*3/uL 0.36-1.02 EOS x10^3 (test code = 711-2) 0.06-0.53 L BASO x10^3 (test code = 704-7) 0.08 10*3/uL 0.01-0.09 Lab Interpretation (test code = 87594-8) [id number]:08:00* Test Item Value Reference Range Interpretation Comme nts Ethanol (test code = ETOH) < 3 mg/dL The pharmacologi yudy response to blood alcohol levels mayvary from individual to individual. The fatal concentrationhas been reported to be >400mg/dL. Complete Blood Count Auto [id number] 17:33:00* Test Item Value Reference Range Interpretation [...] = NRBCP) 0 % UA, Urinalysis Rflx Cult/[id number] 17:33:00* Test Item Value Reference Range Interpretation Comme nts Color,Urine (test code = UCOL) Dark Yellow Yellow A Clarity,Urine (test code = UCLAR) Clear Clear Ph, Urine (test code = UPH) 6.5 5.0-9.0 N Specific [place],Urine (test code = USG) 1.015 1.005-1.030 N [...] = ULEU) Trace mg/dL Negative A Urine [id number] 17:33:00* Test Item Value Reference Range Interpretation Comme nts RBC,Urine (test code = URBCUF) None Seen /HPF 0-2 WBC,Urine (test code = UWBCUF) 0-5 /HPF 0-5 Epithelial Cell,Urine (test code = UECUF) 0-5 /HPF 0-5 Casts,Urine (test code = UCASTUF) None Seen /LPF None Seen Bacteria,Urine (test code = UBACTUF) None Seen /hpf None Seen Drug Screen,[id number] 17:33:00* Test Item Value Reference Range Interpretation [...] code = UPROP) Negative Negative Comprehensive Metabolic [id number] 17:33:00* Test Item Value Reference Range Interpretation [...] 101 U/L 46-116 N Sars-CoV-2/FLU A/B RSV [id number] 17:31:00* Test Item Value Reference Range Interpretation [...] SARS-CoV-2 PCR Result:) Negative by RT-PCR Drug Screen,[id number] 17:20:00* Test Item Value Reference Range Interpretation [...] UPROP) Negative Negative Complete Blood Count Auto [id number] 17:14:00* Test Item Value Reference Range Interpretation [...] code = NRBCP) 0 % Comprehensive Metabolic [id number] 17:14:00* Test Item Value Reference Range Interpretation [...] = ALP) 207 U/L 46-116 H Ethanol [id number] 17:14:00* Test Item Value Reference Range Interpretation Comme nts Ethanol (test code = ETOH) 192 mg/dL Complete Blood Count Auto [id number] 20:20:00* Test Item Value Reference Range Interpretation [...] code = NRBCP) 0 % Comprehensive Metabolic [id number] 20:20:00* Test Item Value Reference Range Interpretation [...] = ALP) 189 U/L 46-116 H Ethanol [id number] 20:20:00* Test Item Value Reference Range Interpretation Comme nts Ethanol (test code = ETOH) 10 mg/dL Sars-CoV-2/FLU A/B RSV [id number] 20:20:00* Test Item Value Reference Range Interpretation [...] Negative by Nucleic Acid Amplification UA, Urinalysis [id number] 20:20:00* Test Item Value Reference Range Interpretation Comme nts Color,Urine (test code = UCOL) Yellow Y Clarity,Urine (test code = UCLAR) Clear Clear PH,Urine (test code = UPH.XX) 7.0 5.5-8.5 Specific [place],Urine (test code = USG) 1.020 1.005-1.030 N [...] code = ULEU) Negative cells/uL Negative Drug Screen,[id number] 20:20:00* Test Item Value Reference Range Interpretation [...] FO LLOW CT head/brain wo [facility] [address] [place] [address] Patient Name: Walt Velazquez Medical Record#: [id number] Address: Homeless City/State/Zip: [place] [address]: Vinnie Navarro MD Phone: Insurance: Self Pay /Age/Sex: 1970/50/M Admit/Reg Date: 09/17/[address]: Vinnie Navarro MD Location: [facility]/ PCP: PcpMd KERWIN Jimenez Date of Service: 09/17/21 Order (s): CT head/brain wo con CPT Code: 45084 Report Number: [id number] Reason for Exam: Altered mental status Location [...]
[2023-09-29] MEDS ORDERED: LORazepam 2 MG/ML VIAL ONE (11:10)
[2023-09-29 11:47] LABS: Absolute Basophils 0.1 K/uL (0-0.5); Absolute Lymphocytes (CBC) 0.4 K/uL (0.7-4.9); Absolute Monocytes 0.4 K/uL (0.1-1.3); Absolute Neutrophil 3.5 K/uL (1.8-8.0); Basophils % 1.2 % (0-1.3); Hematocrit 41.2 % (39.6-49.0); Hemoglobin 13.5 g/dL (13.6-17.9); Lymphocytes % 9.2 % (15.3-44.8); MCH 29.6 pg (27.0-35.0); MCHC 32.8 g/dL (32.0-36.0); MCV 90.4 fL (80-100); MPV 7.2 fL (7.6-11.3); Neutrophils % 79.6 % (41.7-73.7); Platelets 86 thou/uL (152-406); RBC Red Blood Cell Count 4.56 M/uL (4.33-5.43); Red Cell Distribution Width 16.3 % (12.1-15.2)
--- NOTE | 2023-09-29 11:53 | RAD REPORT ---
EXAM DESCRIPTION: [facility] Single View09/29/2023 11:47 am CLINICAL HISTORY: Chest pain COMPARISON: September 28, 2023 FINDINGS: The lungs appear clear of acute infiltrate. The heart is normal size IMPRESSION: No acute abnormalities displayed
[2023-09-29 12:05] LABS: Anion Gap 12.7 mEq/L (5.0-15.0); Potassium 3.7 mEq/L (3.5-5.1); Troponin High Sensitivity 16.3 pg/mL (<58.9)
--- NOTE | 2023-09-29 12:55 | ER ---
Nurse's Notes [facility] Name: Walt Velazquez Age: 52 yrs Sex: Male : 1970 Arrival Date: 09/29/2023 Time: 10:52 Bed 6 Private MD: Diagnosis: Chest pain, unspecified;Alcohol abuse, uncomplicated Presentation: 09/28 10:56 Chief complaint: EMS states: called to alf for inmate with n/v, then upon EMS arrival ko1 he complained of chest pain. Officer accompanying patient. Coronavirus screen: At this time, the client does not indicate any symptoms associated with coronavirus-19. Ebola Screen: No symptoms or risks identified at this time. Initial Sepsis Screen: Does the patient meet any 2 criteria? No. Patient's initial sepsis screen is negative. Does the patient have a suspected source of infection? No. Patient's initial sepsis screen is negative. Risk Assessment: Do you want to hurt yourself or someone else? Patient reports no desire to harm self or others. Onset of symptoms was September 29, 2023. Care prior to arrival: IV initiated. 18 GA, in the right antecubital area, Glucose check: 167. 10:56 Method Of Arrival: EMS: [facility] ko1 10:56 Acuity: LATASHA 3 ko1 Triage Assessment: 10:58 General: Appears unkempt, Behavior is restless. Pain: Complains of pain in chest. ko1 Historical: - Allergies: 10:58 Trazodone; ko1 - PMHx: 10:58 Alcoholism; Bipolar II; Hypertensive disorder; Parkinsons; Seizure; ko1 - Immunization history:: Adult Immunizations unknown. - Infectious Disease History:: Denies. - Social history:: Smoking status: unknown Patient uses alcohol, on a daily basis. street drugs, cocaine. Screenin:15 [facility] ED Fall Risk Assessment (Adult) History of falling in the last 3 months, kc6 including since admission No falls in past 3 months (0 pts) Confusion or Disorientation No (0 pts) Intoxicated or Sedated Yes (3 pts) Impaired Gait No (0 pts) Mobility Assist Device Used No (0 pt) Altered Elimination No (0 pt) Score/Fall Risk Level 3 or more points = High Risk. Abuse screen: Denies threats or abuse. Denies injuries from another. Nutritional screening: No deficits noted. Tuberculosis screening: No symptoms or risk factors identified. Assessment: 11:16 General: Appears in no apparent distress. comfortable, well groomed, well developed, kc6 Behavior is cooperative, anxious. Pain: Complains of pain in chest Pain does not radiate. Neuro: Level of Consciousness is awake, alert, obeys commands, Oriented to person, place, time, situation, Appropriate for age. Cardiovascular: Capillary refill < 3 seconds. Respiratory: Airway is patent Trachea midline Respiratory effort is even, unlabored, Respiratory pattern is regular, symmetrical. GI: No signs and/or symptoms were reported involving the gastrointestinal system. : No signs and/or symptoms were reported regarding the genitourinary system. EENT: No signs and/or symptoms were reported regarding the EENT system. Derm: No signs and/or symptoms reported regarding the dermatologic system. Skin is intact, is healthy with good turgor, Skin is pink, warm \T\ dry. Musculoskeletal: No signs and/or symptoms reported regarding the musculoskeletal system. Circulation, motion, and sensation intact. Capillary refill < 3 seconds, Range of motion: intact in all extremities. 11:55 Reassessment: Patient appears in no apparent distress at this time. No changes from kc6 previously documented assessment. Patient and/or family updated on plan of care and expected duration. Pain level reassessed. Patient is alert, oriented x 3, equal unlabored respirations, skin warm/dry/pink. 13:08 Reassessment: No changes from previously documented assessment. Patient and/or family ll1 updated on plan of care and expected duration. Pain level reassessed. Patient is alert, oriented x 3, equal unlabored respirations, skin warm/dry/pink. Vital Signs: 10:56 BP 166 / 95; Pulse 110; Resp 19; Temp 98; Pulse Ox 100% on R/A; ko1 11:15 BP 157 / 91; Pulse 87; Resp 16 S; Pulse Ox 99% on R/A; kc6 11:55 BP 153 / 102; Pulse 87; Resp 16 S; Pulse Ox 99% on R/A; kc6 12:31 BP 143 / 94; Pulse 88; Resp 16; Pulse Ox 99% ; ko1 13:07 BP 141 / 91; Pulse 88; Resp 17; Temp 98; Pulse Ox 99% ; ll1 ED Course: 10:55 Patient arrived in ED. bd 10:56 Kaleb Groves MD is Attending Physician. ec2 10:58 Triage completed. ko1 10:58 Arm band placed on right wrist. Patient placed in an exam room, on a stretcher, on ko1 bus monitor, on pulse oximetry, Patient notified of wait time. 11:11 Geri Albrecht, RN is Primary Nurse. kc6 11:11 Maintain EMS IV. Dressing intact. Good blood return noted. Site clean \T\ dry. Gauge \T\ hernan 6 site: 18G RAC. 11:15 Patient has correct armband on for positive identification. Bed in low position. Call kc6 light in reach. Side rails up X2. Security at bedside. Client placed on continuous cardiac and pulse oximetry monitoring. NIBP monitoring applied. bus monitor on. Door closed. Noise minimized. Visitors limited. Lights dimmed. Warm blanket given. PO fluids given. Verbal reassurance given. 11:22 Safety Checks: Other: [employer] officer at bedside. ko1 11:22 Provided Education on: alcohol withdrawal. ko1 11:22 No provider procedures requiring assistance completed. ko1 11:49 XRAY Chest (1 view) In Process Unspecified. EDMS 13:08 IV discontinued, intact, bleeding controlled, No redness/swelling at site. Pressure ll1 dressing applied. Administered Medications: 11:11 Drug: NS 0.9% IV 500 ml IV at bolus once Route: IV; Rate: bolus; Site: right kc antecubital; 13:09 Follow up: Response: No adverse reaction; IV Status: Completed infusion; IV Intake: ll1 500ml 11:15 Drug: Ativan IVP 2 mg IVP once Route: IVP; Site: right antecubital; [facility] 13:08 Follow up: Response: No adverse reaction; Anxiety decreased; RASS: Alert and Calm (0) ll1 Medication: 11:22 VIS not applicable for this client. ko1 Intake: 13:09 IV: 500ml; Total: 500ml. ll1 Outcome: 12:55 Discharge ordered by . ec2 13:08 Discharged to Law Enforcement ll1 13:08 Condition: stable 13:08 Discharge instructions given to patient, Instructed on discharge instructions, follow up and referral plans. Demonstrated understanding of instructions, follow-up care, 13:09 Patient left the ED. ll1 Signatures: Dispatcher [employer] EDMily Savage Lynsay, RN RN ll1 Geri Albrecht RN RN kc6 Sonia Chauhan RN RN ko1 Kaleb Groves MD MD ec2 Corrections: (The following items were deleted from the chart) 11:24 10:56 Chief complaint: EMS states: called to alf for inmate with n/v, then upon EMS ko1 arrival he complained of chest pain. ko1
--- NOTE | 2023-09-29 12:55 | EDPHYS ---
Physician Documentation [facility] Name: Walt Velazquez Age: 52 yrs Sex: Male : 1970 Arrival Date: 09/29/2023 Time: 10:52 Bed 6 Private MD: ED Physician Kaleb Groves HPI: 09/28 11:04 This 52 yrs old Male presents to ER via EMS with complaints of chest pain. ec2 11:04 Patient with history of alcohol abuse arrives today for chest pain. Patient arrives ec2 today for chest pain, in police custody. Patient reports no specific alleviating or exacerbating factors, states that he is "shaking like a leaf ". Patient reports no difficulty breathing, no vomiting or diarrhea, no urinary complaints. Historical: - Allergies: 10:58 Trazodone; ko1 - PMHx: 10:58 Alcoholism; Bipolar II; Hypertensive disorder; Parkinsons; Seizure; ko1 - Immunization history:: Adult Immunizations unknown. - Infectious Disease History:: Denies. - Social history:: Smoking status: unknown Patient uses alcohol, on a daily basis. street drugs, cocaine. ROS: 11:04 Constitutional: as per hpi ec2 Exam: 11:04 Constitutional: GEN: NAD Head: atraumatic Eyes: EOMI Ears: External ears are ec2 normal. CV: regular rate LUNGS: no respiratory distress ABD: non-distended, soft, nontender, no guarding, not rigid SKIN: no evidence of rashes MSK: no evidence of trauma NEURO: moves all extremities equally Vital Signs: 10:56 BP 166 / 95; Pulse 110; Resp 19; Temp 98; Pulse Ox 100% on R/A; ko1 11:15 BP 157 / 91; Pulse 87; Resp 16 S; Pulse Ox 99% on R/A; kc6 11:55 BP 153 / 102; Pulse 87; Resp 16 S; Pulse Ox 99% on R/A; kc6 12:31 BP 143 / 94; Pulse 88; Resp 16; Pulse Ox 99% ; ko1 13:07 BP 141 / 91; Pulse 88; Resp 17; Temp 98; Pulse Ox 99% ; ll1 MDM: 11:03 Patient medically screened. ec2 11:04 Data reviewed: vital signs. ED course: Patient arrives today for evaluation of chest ec2 pain. Examination remarkable for well-appearing nontoxic dividual is otherwise in no acute distress. Will obtain lab work, EKG, chest x-ray. Evaluating for ACS, electrolyte disturbances. Initially patient with history of alcohol abuse, some tremulousness appreciated, with patient Ativan as well.. 11:08 ED course: EKG independently reviewed and interpreted by me, shows normal sinus rhythm, ec2 rate of 100, no acute ST segment elevations, nonconcerning intervals. 12:55 ED course: Patient with resolved tachycardia on reexamination. Metabolic profile is ec2 reassuring, CBC reassuring, troponin within normal ranges, chest x-ray shows no acute intrathoracic process. Will discharge home. Return precautions given. . 09/28 11:03 Order name: Basic Metabolic Panel; Complete Time: 12:54 ec2 09/28 11:03 Order name: CBC with Diff; Complete Time: 12:54 ec2 09/28 11:03 Order name: Troponin HS; Complete Time: 12:54 ec2 09/28 11:03 Order name: XRAY Chest (1 view); Complete Time: 12:54 ec2 09/28 11:03 Order name: Cardiac monitoring; Complete Time: 11:06 ec2 09/28 11:03 Order name: EKG - Nurse/Tech; Complete Time: 11:06 ec2 09/28 11:03 Order name: IV Saline Lock; Complete Time: 11:06 ec2 09/28 11:03 Order name: Labs collected and sent; Complete Time: 11:11 ec2 09/28 11:03 Order name: O2 Per Protocol; Complete Time: 11:06 ec2 09/28 11:03 Order name: O2 Sat Monitoring; Complete Time: 11:06 ec2 Administered Medications: 11:11 Drug: NS 0.9% IV 500 ml IV at bolus once Route: IV; Rate: bolus; Site: right kc6 antecubital; 13:09 Follow up: Response: No adverse reaction; IV Status: Completed infusion; IV Intake: ll1 500ml 11:15 Drug: Ativan IVP 2 mg IVP once Route: IVP; Site: right antecubital; kc6 13:08 Follow up: Response: No adverse reaction; Anxiety decreased; RASS: Alert and Calm (0) ll1 Disposition Summary: 09/29/23 12:55 Discharge Ordered Notes: Location: Home ec2 Condition: Stable ec2 Diagnosis - Chest pain, unspecified ec2 - Alcohol abuse, uncomplicated ec2 Followup: ec2 - With: Private Physician - When: - Reason: Re-evaluation by your physician Discharge Instructions: - Discharge Summary Sheet ec2 - Nonspecific Chest Pain, Adult ec2 Forms: - Medication Reconciliation Form ec2 - Thank You Letter ec2 - Antibiotic Education ec2 - Prescription Opioid Use ec2 - Patient Portal Instructions ec2 - Leadership Thank You Letter ec2 Signatures: Dispatcher [employer] Geri Hernandez RN RN kc6 Sonia Chauhan RN RN ko1 Kaleb Groves MD MD ec2 Monet Masters RN ll1
[2023-09-29 14:01] VITALS: BP 141/91; TEMP 98; O2SAT 99
--- NOTE | 2023-09-30 12:37 | EKG ---
Test Date: 2023-09-29 Test Time: 11:03:51 Embedded Hardware Engineer: DAVE MEASUREMENT RESULTS: Intervals: Rate: 100 TN: 160 QRSD: 76 QT: 326 QTc: 420 [place]: P: 65 TN: 160 QRS: 48 T: 42 INTERPRETIVE STATEMENTS: Normal sinus rhythm Normal ECG Compared to ECG 09/28/2023 12:36:45 No significant changes Electronically Signed On 09-30-23 12:34:01 CDT by Cristhian Hernandez
== END 2023-09-29 13:09 | disposition home or self-care (01) ==
LOC: ER 10:52
DX: R07.9 Chest pain, unspecified (principal); F10.20 Alcohol dependence, uncomplicated; G20.A1 Parkinson's disease without dyskinesia, without mention of fluctuations; Z88.5 Allergy status to narcotic agent
CPT/HCPCS: 36415; 71045; 80048; 84484; 85025; 93005; 96361; 96374; 99285

== ENCOUNTER 2023-12-04 00:10 | Emergency (ER) | payer SELFPAY ==
--- OUTSIDE RECORDS SUMMARY | 2023-12-04 00:16 | XMS REPORT | Continuity of Care Document ---
Author Name Unknown Address [address] [address] [place] [address] [facility] Address [address] [place] [address] Care Team Providers Care Pharmacy Clinical Specialist Name Role Phone Pcp, Patient Does Not Have A Primary Care Physic cedric Sulaiman Hawkins DO Attending Clinician [phone] HEMANT KLEIN Attending Clinician Unavailable Hemant Klein MD Attending Clinician [phone] Pan Pinto Attending Clinician Unavailab JESSICA Gallardo Attending Clinician Unavailable Rayray Driscoll MD Attending Clinician +[phone] Jessica Prado MD Attending Clinician [phone] Oswald Murphy MD Attending Clinician [phone] DIYA CHOWDHURY Attending Clinician Unavailab Diya Mackey DO Attending Clinician [phone] Fidel Cuellar Attending Clinician Unavailable DIRK YARBROUGH Attending Clinician Unavailable Leticia Rowland Attending Clinician [phone] Dirk Yarbrough MD Attending Clinician [phone] Faye Portillo LVN Attending Clinician [phone] Pia Reddy Attending Clinician [phone] Vinnie Navarro Attending Clinician Unavailable OSWALD MURPHY Admitting Clinician Unavailable Oswald Murphy MD Admitting Clinician [phone] DIYA CHOWDHURY Admitting Clinician UnavailLeticia Gaytan Admitting Clinician Unavailable JESSICA PRADO Admitting Clinician Unavailable Jessica Prado MD Admitting Clinician [phone] Payers Payer Name Policy Type Policy Number Effective Date Expirati on Date Source Problems Condition Name Condition Details Condition Category [...] [facility] Priapism Priapism Disease Active 2013-06- 00:00: 00 [facility] Allergies, Adverse Reactions, Alerts Allergy Name Allergy Type Status Severity Reaction(s) Onset Date Inactive Date Treating Clinician Comments Source No Known Drug Allergie s DA Active U 4-25 00:00: 00 [facility] No Known Drug Allergie s DA Active U 0 9-16 00:00: 00 [facility] No Known Drug Allergie s DA Active U 3-29 00:00: 00 [facility] No Known Drug Allergie s DA Active U 2019-06 2-16 00:00: 00 [facility] No Known Drug Allergie s DA Active U 2019-06 2-15 00:00: 00 [facility] No Known Drug Allergie s DA Active U 2019-06 00:00: 00 [facility] Trazodon e Propensi ty to adverse reaction s Active Other - See comments 10-06 00:00: 00 [facility] TRAZODON E DRUG INGREDI Active Other-Cmnt 10-06 00:00: 00 [facility] Social History Social Habit Start Date Stop Date Quantity Comments Source History of tobacco use Cigarette Smoker [facility] Exposure to SARS-CoV-2 (event) 2022-11-01 00:00:00 2022-11-11 13:57:00 Not sure [facility] Tobacco use and exposure 2022-08-10 00:00:00 2022-08-10 00:00:00 User of smokeless tobacco [facility] Alcohol intake 2022-08-10 00:00:00 2022-08-10 00:00:00 Current drinker of alcohol (finding) [facility] Tobacco Comment 2022-08-10 00:00:00 2022-08-10 00:00:00 1/2 a pack a day [facility] Alcoholic beverage intake 2022-08-10 00:00:00 2022-08-10 00:00:00 Current drinker of alcohol (finding) [facility] History of Social function 2022-08-10 00:00:00 2022-08-10 00:00:00 [facility] Sex assigned at 1970 00:00:00 1970 00:00:00 [facility] Smoking Status Start Date Stop Date Source Smokes tobacco daily 2022-08-10 00:00:00 [facility] Medications Ordered Medication Name Filled [...] 08-12 00:00: 00 09-12 04:59 :00 No [id number] 1mg Take 1 tablet by mouth in [...] Thu08/10/22 at 0900, Until Discontinu ed, Routine [facility] foLIC acid (FOLATE) 5 mg in NaCl 0.9% (NS) piggyback 08-10 15:00: 00 08-11 16:14 :47 No 5mg IV Piggyback, DAILY, First dose on 08/10/22 at 0900, Until Discontinu ed, 50 mL [facility] thiamine (VITAMIN B1) 100 mg in NaCl 0.9% (NS) piggyback 08-10 15:00: 00 08-10 16:08 :00 No 100mg IV Piggyback, DAILY, 1 dose, First dose on Thu08/10/22 at 0900, 50 mL [facility] LORazepam (ATIVAN) injection 2 mg 08-10 14:52: 57 Yes 2mg 2 mg, Slow IV Push, Q4HPRN, Starting on Thu08/10/22 at 0852, Until Discontinu ed, Routine, Seizures, Agitation, Anxiety [facility] Sliding Scale Insulin-Reg ular + Fsbg Testing 08-10 13:30: 00 Yes Subcutaneo us, AC+HS, First dose on Thu08/10/22 at 0730, Until Discontinu ed, Routine [facility] oxazepam (SERAX) capsule 15 mg [...] < 80 mg/dL, repeat.
[facility] glucagon (GLUCAGEN DIAGNOSTIC KIT) [...] IV Push, ONCE NOW, 1 dose, On 08/10/22 at 0200, STAT [facility] thiamine (VITAMIN B1) injection 100 mg 08-10 06:45: 00 08-10 06:52 :00 No 100mg 100 mg, Intravenou s, ONCE, 1 dose, [facility]22 [facility] 0045[facility]IVAN) [facility] 1 mg 08-10 05:15: 00 08-10 05:22 :00 No 1mg 1 mg, Slow IV Push, ONCE, 1 dose, On 08/09/22 at 2315, STAT [facility] ketorolac (TORADOL) injection 15 mg 2021-06-16 16:00: 00 04-06 14:50 :00 No 15mg 15 mg, Slow IV Push, ONCE, 1 dose, On 04/06/22 at 1100, [facility] ondansetron (ZOFRAN (PF)) injection 4 mg 2021-0616 15:45: 00 04-06 14:50 :00 No 4mg 4 mg, Slow IV Push, ONCE, 1 dose, On 04/06/22 at 1045, [facility] oxazepam (SERAX) capsule 15 mg 12-31 06:28: 17 01-01 06:29 :00 No 15mg 15 mg, Oral, Q12H TAPER, 2 doses, First dose on Thu12/31/21 at 0130, Last dose on Thu12/31/21 at 1330, Routine [facility] multivitami n tablet 12-31 00:00: 00 Yes [id number] 1{tbl} Take 1 tablet by mouth in the morning. [facility] thiamine 100 mg tablet 12-31 00:00: 00 Yes [id number] 100mg Take 1 tablet by mouth in the morning. [facility] aspirin 81 mg chewable tablet 12-31 00:00: 00 Yes [id number] 81mg Take 1 tablet by mouth in the morning. [facility] foLIC acid 1 mg tablet 12-31 00:00: 00 01-31 04:59 :00 No [id number] 1mg Take 1 tablet by mouth in the morning for 30 days. [facility] metFORMIN 500 mg tablet 12-30 00:00: 00 Yes [id number] 500mg Take 1 tablet by mouth in the morning and 1 tablet in the evening. Take with meals. [facility] aspirin chewable tablet 81 mg 12-29 14:00: 00 Yes 81mg 81 mg, Oral, DAILY, First dose on 12/29/21 at 0900, Until Discontinu ed, Routine [facility] sulfur hexafluorid e microsphr (LUMASON) injection 5 mL 12-29 13:45: 00 12-29 13:45 :00 No [id number] 5mL 5 mL, Intravenou s, ONCE, 1 dose, On 12/29/21 at 0845, Routine
bioinformatics team member approving Restricted medication : STEFANIE GORMAN [facility] enoxaparin (LOVENOX) injection 40 mg 12-29 13:00: 00 Yes 40mg 40 mg, Subcutaneo us, Q24H, First dose on Thu12/29/21 at 0800, Until Discontinu ed, Routine [facility] [...] Value Comments S ource Systolic blood pressure 2023-11-05 21:00:00 106 mm[Hg] [facility] Diastolic blood pressure 2023-11-05 21:00:00 70 mm[Hg] [facility] Heart rate 2023-11-05 21:00:00 74 /min [facility] Body temperature 2023-11-05 21:00:00 36.5 Theresa [facility] Respiratory rate 2023-11-05 21:00:00 21 /min [facility] Oxygen saturation in Arterial blood by Pulse oximetry 2023-11-05 21:00:00 98 /min [facility] Body height 2023-11-05 19:59:00 160 cm [facility] Body weight 2023-11-05 19:59:00 63.504 kg [facility] BMI 2023-11-05 19:59:00 24.80 kg/m2 [facility] Systolic blood pressure 2022-11-11 20:31:31 116 mm[Hg] [facility] Diastolic blood pressure 2022-11-11 20:31:31 77 mm[Hg] [facility] Heart rate 2022-11-11 20:31:31 84 /min [facility] Respiratory rate 2022-11-11 20:31:31 12 /min [facility] Oxygen saturation in Arterial blood by Pulse oximetry 2022-11-11 20:31:31 90 /min [facility] Body temperature 2022-11-11 18:49:00 37.11 Theresa [facility] Body height 2022-11-11 18:49:00 160 cm [facility] Body weight 2022-11-11 18:49:00 68.04 kg [facility] BMI 2022-11-11 18:49:00 26.57 kg/m2 [facility] Body temperature 2022-08-11 14:00:00 36.5 Theresa [facility] Systolic blood pressure 2022-08-11 10:00:00 116 mm[Hg] [facility] Diastolic blood pressure 2022-08-11 10:00:00 71 mm[Hg] [facility] Heart rate 2022-08-11 10:00:00 70 /min [facility] Respiratory rate 2022-08-11 10:00:00 16 /min [facility] Body weight 2022-08-11 10:00:00 65.499 kg [facility] BMI 2022-08-11 10:00:00 25.58 kg/m2 [facility] Oxygen saturation in Arterial blood by Pulse oximetry 2022-08-11 10:00:00 100 /min [facility] Body height 2022-08-10 22:12:00 160 cm [facility] Systolic blood pressure 2022-04-06 16:00:00 125 mm[Hg] [facility] Diastolic blood pressure 2022-04-06 16:00:00 75 mm[Hg] [facility] Heart rate 2022-04-06 16:00:00 87 /min [facility] Respiratory rate 2022-04-06 16:00:00 22 /min [facility] Oxygen saturation in Arterial blood by Pulse oximetry 2022-04-06 16:00:00 98 /min [facility] Body temperature 2022-04-06 14:41:00 37 Theresa [facility] Body height 2022-04-06 14:41:00 160 cm [facility] Body weight 2022-04-06 14:41:00 63.504 kg [facility] BMI 2022-04-06 14:41:00 24.80 kg/m2 [facility] Systolic blood pressure 2022-01-20 02:27:00 121 mm[Hg] [facility] Diastolic blood pressure 2022-01-20 02:27:00 75 mm[Hg] [facility] Heart rate 2022-01-20 02:27:00 79 /min [facility] Respiratory rate 2022-01-20 02:27:00 12 /min [facility] Oxygen saturation in Arterial blood by Pulse oximetry 2022-01-20 02:27:00 98 /min [facility] Body temperature 2022-01-19 22:19:00 36.44 Theresa [facility] Body weight 2022-01-19 22:19:00 60.328 kg [facility] BMI 2022-01-19 22:19:00 23.56 kg/m2 [facility] Systolic blood pressure 2021-12-30 20:52:00 134 mm[Hg] [facility] Diastolic blood pressure 2021-12-30 20:52:00 76 mm[Hg] [facility] Heart rate 2021-12-30 20:52:00 67 /min [facility] Body temperature 2021-12-30 20:26:00 36.67 Theresa [facility] Oxygen saturation in Arterial blood by Pulse oximetry 2021-12-30 20:26:00 99 /min [facility] Respiratory rate 2021-12-30 16:21:00 18 /min [facility] Body weight 2021-12-30 08:27:00 60.464 kg [facility] BMI 2021-12-30 08:27:00 23.61 kg/m2 [facility] Body height 2021-12-29 01:29:00 160 cm [facility] Procedures Procedure Date / Time Performed Performing Clinician Source XR CHEST 1 VW 2023-11-05 20:09:00 Sulaiman Hawkins [facility] LIPASE 2023-11-05 20:01:00 Sulaiman [facility] MAGNESIUM 2023-11-05 20:01:00 [facility] TROPONIN [facility] 2023-11-05 20:01:00 Hawkins [facility] COMP. METABOLIC PANEL ([id number]) 2023-11-05 20:01:00 Singer [facility] CBC WITH DIFF 2023-11-05 20:01:00 Singer [facility] N-TERMINAL PRO-BNP 2023-11-05 20:01:00 Singer [facility] MAGNESIUM 2022-11-11 19:05:00 Jessica [facility] BASIC METABOLIC PANEL (NA, K, CL, CO2, GLUCOSE, BUN, CREATININE, CA) 2022-11-11 19:05:00 Jessica [facility] ETHANOL 2022-11-11 19:05:00 Jessica [facility] CBC WITH DIFF 2022-11-11 19:05:00 Jessica [facility] POCT GLUCOSE (AUTOMATED) 2022-08-11 13:36:00 Arvind Prado [facility] PHOSPHORUS 2022-08-11 10:35:00 [facility] 2022-08-11 10:35:[address] [facility] AMMONIA, PLASMA 2022-08-11 10:35:00 Jessica Prado [facility] COMP. METABOLIC PANEL ([id number]) 2022-08-11 10:35:00 Jessica Prado [facility] CBC WITH DIFF 2022-08-11 10:35:00 Oswald Murphy [facility] POCT GLUCOSE (AUTOMATED) 2022-08-11 02:15:00 Arvind Prado [facility] POCT GLUCOSE (AUTOMATED) 2022-08-10 23:10:00 Arvind Prado [facility] POCT GLUCOSE (AUTOMATED) 2022-08-10 18:20:00 Arvind Prado [facility] POCT GLUCOSE (AUTOMATED) 2022-08-10 14:11:00 Arvind Prado [facility] POCT GLUCOSE (AUTOMATED) 2022-08-10 10:59:00 Gopal Driscoll [facility] COVID-19 (ID NOW RAPID TESTING) 2022-08-10 07:17:00 Rayray Driscoll [facility] LAB ONLY COVID INTERPRETATION 2022-08-10 07:17:00 Rayray Driscoll [facility] HB ECG ROUTINE & RHYTHM STRIP 2022-08-10 06:03:48 Rayray Driscoll [facility] URINALYSIS 2022-08-10 05:46:00 [facility]coll [facility] URINE DRUG (IMMUNOASSAY) - COMPREHENSIVE DRUG SCREEN W/O REFLEX 2022-08-10 05:45:00 Rayray Driscoll [facility] CREATINE KINASE 2022-08-10 05:16:00 [facility] 2022-08-10 05:16:00 [facility]coll [facility] MAGNESIUM 2022-08-10 05:16:00 Rayray Driscoll [facility] TROPONIN I 2022-08-10 05:16:00 Rayray Driscoll [facility] COMP. METABOLIC PANEL ([id number]) 2022-08-10 05:16:00 Rayray Driscoll [facility] ETHANOL 2022-08-10 05:16:00 Rayray Driscoll [facility] CBC WITH DIFF 2022-08-10 05:16:00 Rayray Driscoll [facility] N-TERMINAL PRO-BNP 2022-08-10 05:16:00 Rayray Driscoll [facility] CRITICAL CARE 2022-08-10 04:52:00 Rayray Driscoll [facility] XR CHEST 1 VW 2022-04-06 14:51:50 Diya [facility] LIP[facility] 2022-04-06 14:42:00 [facility] TROPONIN I 2022-04-06 14:42:00 Diya Chowdhury Un [facility] COMP. METABOLIC PANEL ([id number]) 2022-04-06 14:42:00 Diya Chowdhury [facility] CBC WITH DIFF 2022-04-06 14:42:00 Diya Chowdhury U [facility] PROTHROMBIN TIME / INR 2022-04-06 14:42:00 Diya Chowdhury [facility] ACTIVATED PARTIAL THRMPLAS NELDA 2022-04-06 14:42:00 Diya Chowdhury [facility] LACTIC ACID WHOLE BLOOD 2022-01-20 00:22:00 Leticia Baldwin [facility] URINE DRUG (IMMUNOASSAY) - COMPREHENSIVE DRUG SCREEN 2022-01-19 23:10:00 Leticia Baldwin [facility] URINALYSIS 2022-01-19 23:10:00 Leticia [facility] TROPONIN I 2022-01-19 23:00:00 Leticia [facility] COMP. METABOLIC PANEL ([id number]) 2022-01-19 23:00:00 Leticia Baldwin [facility] LITHIUM 2022-01-19 23:00:00 Leticia [facility] ETHANOL 2022-01-19 23:00:00 Leticia [facility] CBC WITH DIFF 2022-01-19 23:00:00 Leticia Baldwin [facility] COVID-19 (ID NOW RAPID TESTING) 2022-01-19 23:00:00 Leticia Baldwin [facility] CT HEAD WO CONTRAST 2022-01-19 22:49:00 Leticia Baldwin [facility] XR CHEST 1 VW 2022-01-19 22:41:00 Leticia Baldwin [facility] POCT GLUCOSE (AUTOMATED) 2022-01-19 22:25:00 Leticia Baldwin [facility] POCT GLUCOSE (AUTOMATED) 2021-12-30 21:55:00 Arvind Prado [facility] POCT GLUCOSE (AUTOMATED) 2021-12-30 16:21:00 Arvidn Prado [facility] POCT GLUCOSE (AUTOMATED) 2021-12-30 12:30:00 Arvind Prado [facility] HEPATIC FUNCTION PANEL ([id number]) (ALB,T.PRO,BILI T,BU/BC,ALT,AST,ALK PHOS) 2021-12-30 09:28:00 Maira Gaitan [facility] POCT GLUCOSE (AUTOMATED) 2021-12-30 02:11:00 Arvind Prado [facility] POCT GLUCOSE (AUTOMATED) 2021-12-29 21:41:00 Arvind Prado [facility] POCT GLUCOSE (AUTOMATED) 2021-12-29 16:37:00 Arvind Prado [facility] TRANSTHORACIC ECHO (TTE) COMPLETE W/ CONTRAST 2021-12-29 13:05:00 Jessica Prado [facility] POCT GLUCOSE (AUTOMATED) 2021-12-29 12:41:00 Arvind Prado [facility] TROPONIN I 2021-12-29 09:42:00 Jessica Prado [facility] TROPONIN I 2021-12-29 04:55:00 Eve Jessica [facility] CT HEAD WO CONTRAST 2021-12-28 21:18:22 Poppy Rentreia [facility] AMMONIA, PLASMA 2021-12-28 21:00:00 Pia Renteria [facility] COVID-19 (ID NOW RAPID TESTING) 2021-12-28 20:42:00 Pia Renteria [facility] LAB ONLY COVID INTERPRETATION 2021-12-28 20:42:00 Pia Renteria [facility] URINE DRUG (IMMUNOASSAY) - COMPREHENSIVE DRUG SCREEN W/O REFLEX 2021-12-28 20:42:00 Pia Renteria [facility] URINALYSIS 2021-12-28 20:40:00 Pia Renteria [facility] N-TERMINAL PRO-BNP 2021-12-28 20:40:00 Corina Renteria [facility] TROPONIN I 2021-12-28 20:40:00 Pia Renteria [facility] THYROID STIMULATING HORMONE 2021-12-28 20:40:00 Jessica Prado [facility] COMP. METABOLIC PANEL ([id number]) 2021-12-28 20:40:00 Pia Renteria [facility] LIPID PANEL ([id number])(TOTAL CHOLESTEROL, TRIGLYCERIDES, HDL) 2021-12-28 20:40:00 Demetrius Langford [facility] ETHANOL 2021-12-28 20:40:00 Demetrius Lang[facility] CBC WITH DIFF 2021-12-28 20:40:00 Pia Renteria [facility] GLYCOSYLATED HEMOGLOBIN (A1C) 2021-12-28 20:40:00 Jessica Prado [facility] PROTHROMBIN TIME / INR 2021-12-28 20:40:00 Lesly Renteria [facility] XR CHEST 1 VW 2021-12-28 20:16:00 Pia Renteria [facility] HB ECG ROUTINE & RHYTHM STRIP 2021-12-28 20:04:59 Pia Renteria [facility] Encounters Start Date/Time End Date/Time Encounter Type Admission Type Attending [facility] Care Facility Care Department Encounter ID Source 2021-09-17 16:45:[address] [facility] [id number] [facility] 2020-06-06 16:07:[address] [facility] [id number] [facility] 2020-06-06 06:20:[address] [facility] [id number] [facility] 2020-06-05 19:35:[address] [facility] [id number] [facility] 2020-05-23 19:53:[address] [facility] [id number] 2020-05-23 19:53:[address] [facility] [id number] [facility] 2023-11-05 14:54:00 2023-11-05 16:27:00 Emergency Sulaiman Hawkins [facility] [id number] [facility] 2022-11-11 13:50:00 2022-11-11 16:07:00 Emergency X HEMANT KLEIN [facility] ERT [id number] [facility] 2022-11-11 13:50:00 2022-11-11 16:07:00 Emergency Hemant Klein [facility] [id number] [facility] 2022-10-14 20:59:00 2022-10-14 20:59:[address] [facility] [id number] [facility] 2022-10-14 20:59:00 2022-10-14 20:59:00 Emergency Emergency ClarekylePan diaz [facility] [id number] [facility] 2022-08-09 22:59:00 2022-08-11 13:02:00 Outpatient X JESSICA PRADO [facility] MARGO [id number] [facility] 2022-08-09 22:59:00 2022-08-11 13:02:00 [facility] [id number] [facility] 2022-04-06 09:38:00 2022-04-06 11:42:00 Emergency X DIYA CHOWDHURY [facility] ERT [id number] [facility] 2022-04-06 09:38:00 2022-04-06 11:42:00 Emergency ToddDiya domingo [facility] [id number] [facility] 2022-03-07 12:38:00 2022-03-07 12:38:[address] [facility] [id number] 2022-03-07 12:38:00 2022-03-07 12:38:00 Emergency Emergency Fidel Cuellar [facility] [id number] 2022-01-19 17:18:00 2022-01-19 22:00:00 Emergency X DIRK YARBROUGH [facility] ERT [id number] [facility] 2022-01-19 17:18:00 2022-01-19 22:00:00 Emergency Leticia Baldwin Dirk Sutton [facility] [id number] [facility] 2021-12-31 00:00:00 2021-12-31 00:00:00 Transition of Care Bandar Fayesari NAVARR[facility] [id number] [facility] 2021-12-28 14:53:00 2021-12-30 17:42:00 Inpatient X JESSICA PRADO [facility] [id number] [facility] 2021-12-28 14:53:00 2021-12-30 17:42:00 Hospital [facility] [id number] [id number] [facility] 2021-09-17 16:47:00 2021-09-17 16:47:[address] [facility] [id number] [facility] 2020-06-06 16:07:00 2020-06-06 16:07:[address] [facility] [id number] [facility] Results Test Description Test Time Test Comments Results Resul t Comments Source XR CHEST 1 VW 2023-10-21 6 20:15:30 HISTORY: Chest pain. TECHNIQUE: Portable AP view of the chest is obtained. Comparison is beingmade with 04/06/2022 study. FINDINGS: No acute pneumonia. No pneumothorax or pleural effusion orpulmonary congestion detected. Cardiac size is within normal limits.Prominent osteophytes are seen along right left vertebral margins at middleand lower thoracic spines. CONCLUSIONS: No signs of acute cardiopulmonary disease. [facility] ETHANOL 2022-10-21 3 19:45:56 ALCOHOL<10mg/dL11/11 2:45 PM [facility]<10 Wpixjphs12-530 Toxic>100 Depression of WINDOWS TECHNICAL SPECIALIST>400 [facility]ities [facility]orted [facility] 19:41:47* Test Item Value Reference Range Interpretation Comme nts MAGNESIUM (test code = 1673709570) 1.8 mg/dL 1.7-2.4 Lab Interpretation (test cod e = 97296-4) Normal [facility]CBC WITH [id number] 19:25:26* Test Item Value Reference Range Interpretation Comme nts WBC (test code = 6690-2) 6.82 See_Comment [Automated Prov[employer]oud] The system which generated this result transmitted reference range: 4.20 - 10.70 10*3/?L. The reference range was not used to interpret this result as normal/abnormal. RBC (test code = 789-8) 4.98 See_Comment [Automated Prov[employer] Qloud] The system which generated this result transmitted [...] 33.9 g/dL 31.2-35.0 RDW-SD (test code = 89584-6) 46.0 fL 38.5-51.6 RDW-CV (test code = 788-0) 13.5 % 12.1-15.4 PLT (test code = 777-3) 237 See_Comment [Automated messa ge] The system which generated this result transmitted reference range: 150 - 328 10*3/?L. The reference range was not used to interpret this result as normal/abnormal. MPV (test code = 87335-9) 8.9 fL 9.8-13.0 L NRBC/100 WBC (test code = 5814562622) 0.0 See_Comment [Automated Dazo ssage] The system which generated this result transmitted reference range: 0.0 - 10.0 /100 WBCs. The reference range was not used to interpret this result as normal/abnormal. NRBC x10^3 (test code = 9089608756) See_Comment [Automated messa ge] The system which generated this result transmitted reference range: 10*3/?L. The reference range was not used to interpret this result as normal/abnormal. GRAN MAT (NEUT) % (test code = 770-8) 71.2 % IMM GRAN % (test code = 7978564550) 0.30 % LYMPH % (test code = 736-9) 18.2 % MONO % (test code = 5905-5) 8.4 % EOS % (test code = 713-8) 1.0 % BASO % (test code = 706-2) 0.9 % GRAN MAT x10^3(ANC) (test code = 3849762412) 4.86 10*3/uL 1.99-6.95 IMM GRAN x10^3 (test code = 5554563139) 0.00-0.06 LYMPH x10^3 (test code = 731-0) 1.24 10*3/uL 1.09-3.23 MONO x10^3 (test code = 742-7) 0.57 10*3/uL 0.36-1.02 EOS x10^3 (test code = 711-2) 0.07 10*3/uL 0.06-0.53 BASO x10^3 (test code = 704-7) 0.06 10*3/uL 0.01-0.09 Lab Interpretation (test code = 13953-5) Abnormal [facility], Urinalysis Rflx Cult/Xtcfe4273-80-93 22:20:00* Test Item Value Reference Range Interpretation Comme nts Color,Urine (test code = UCOL) Yellow Yellow Clarity,Urine (test code = UCLAR) Clear Clear Ph, Urine (test code = UPH) 7.0 5.0-9.0 N Specific Brice,Urine (test code = USG) 1.020 1.005-1.030 N [...] code = ULEU) Negative mg/dL Negative Drug Screen,Kktbt1371-83-73 22:20:00* Test Item Value Reference Range Interpretation [...] UPROP) Negative Negative Complete Blood Count Auto Oviz6847-80-76 21:21:00* Test Item Value Reference Range Interpretation [...] code = NRBCP) 0 % Comprehensive Metabolic Kglso5210-43-22 21:21:00* Test Item Value Reference Range Interpretation [...] a race coefficient. Additional information canbe found at:[email or web address]_[email or web address] 5.pdf ([email or web address]) [Automated message] The system [...] = ALP) 134 U/L 46-116 H Ethanol Kzglr8550-74-87 21:21:00* Test Item Value Reference Range Interpretation Comme nts Ethanol (test code = ETOH) < 3 mg/dL The pharmacologi yudy response to blood alcohol levels mayvary from individual to individual. The fatal concentrationhas been reported to be >400mg/dL. POCT GLUCOSE (AUTOMATED)2022-08-11 13:40:35* Test Item Value Reference Range Interpretation Comme nts POCT GLU (test code = 2163546912) 121 mg/dL 70-110 H Lab Interpretation (test cod e = 01880-9) Abnormal [facility] acute hospital GLUCOSE (AUTOMATED)2022-08-11 02:18:58* Test Item Value Reference Range Interpretation Comme nts POCT GLU (test code = 9548731861) 183 mg/dL 70-110 H Lab Interpretation (test cod e = 23931-3) Abnormal General acute hospital GLUCOSE (AUTOMATED)2022-08-10 23:16:11* Test Item Value Reference Range Interpretation Comme nts POCT GLU (test code = 5915788903) 176 mg/dL 70-110 H Lab Interpretation (test cod e = 05903-5) Abnormal [facility] GLUCOSE (AUTOMATED)2022-08-10 18:22:51* Test Item Value Reference Range Interpretation Comme nts POCT GLU (test code = 5889486529) 165 mg/dL 70-110 H Lab Interpretation (test cod e = 06335-6) Abnormal [facility] GLUCOSE (AUTOMATED)2022-08-10 14:18:05* Test Item Value Reference Range Interpretation Comme nts POCT GLU (test code = 4792952694) 138 mg/dL 70-110 H Lab Interpretation (test cod e = 40248-6) Abnormal [facility] GLUCOSE (AUTOMATED)2022-08-10 11:01:21* Test Item Value Reference Range Interpretation Comme nts POCT GLU (test code = 0405155235) 143 mg/dL 70-110 H Lab Interpretation (test cod e = 47657-7) Abnormal [facility] CenterTROPONIN [id number] 06:51:18* Test Item Value Reference Range Interpretation Comme nts TROPONIN I (test code = 8325610320) 0.008 ng/mL <=0.034 JUAN ALBERTO (test code [...] of biotin. Lab Interpretation (test code = 27954-4) Normal [facility] CenterN-TERMINAL YQP-[id number] 06:47:37* Test Item Value Reference Range Interpretation Comme nts NT-proBNP (test code = 3683252526) 37 pg/mL <=125 JUAN ALBERTO (test code = JUAN ALBERTO) Biotin has been reported to cause a negative bias, interpret results relative to patient's use of biotin. Lab Interpretation (test code = 81813-5) Normal [facility] CenterETH[facility]OL2023-02-19 06:25:52 ALCOHOL<10mg/dL08/10/2022 12:25 AM [facility]<10 Eguuwhea21-494 Toxic>100 Depression of WINDOWS TECHNICAL SPECIALIST>400 Fatalities ReportedMichael [facility]. [facility] CenterCOMP. METABOLIC PANEL (25340)2022-08-10 06:19:15* Test Item Value Reference Range Interpretation Comme nts NA (test code = 8105420481) 135 mmol/L 135-145 K (test code = 2132085983) 4.3 mmol/L 3.5-5.0 CL (test code = 3745669216) 98 mmol/L 98-108 CO2 TOTAL (test code = 1435351427) 30 mmol/L 23-31 AGAP (test code = 9031335743) 7 2-16 BUN (test code = 0344537900) 11 mg/dL 7-23 GLUCOSE (test code = 0996240143) 153 mg/dL 70-110 H CREATININE (test code = 6364704951) 0.77 mg/dL 0.60-1.25 TOTAL BILI (test code = 6157869627) 0.9 mg/dL 0.1-1.1 CALCIUM (test code = 2245435550) 10.0 mg/dL 8.6-10.6 T PROTEIN (test code = 8907017780) 7.7 g/dL 6.3-8.2 ALBUMIN (test code = 2670889620) 4.6 g/dL 3.5-5.0 ALK PHOS (test code = 8679928154) 92 U/L 34-122 ALTv (test code = 1742-6) 35 U/L 5-50 AST(SGOT) (test code = 2102617564) 42 U/L 13-40 H eGFR (test code = 0658823580) 106.1 mL/min/1.73m2 JUAN ALBERTO (test code = [...] imaging tests). Lab Interpretation (test code = 98894-9) [facility] Test Item Value Reference Range Interpretation Comme nts MAGNESIUM (test code = 1273359926) 2.2 mg/dL 1.7-2.4 Lab Interpretation (test cod e = 42071-6) Normal [facility] CenterLIPASE2023-02-19 06:18:55* Test Item Value Reference Range Interpretation Comme nts LIPASE (test code = 7475976210) 18 U/L 0-220 Lab Interpretation (test cod e = 41834-1) Normal [facility] CenterCREATINE MHXQUL3707-54-56 06:18:55* Test Item Value Reference Range Interpretation Comme nts CK (test code = 1417264262) 174 U/L 33-194 Lab Interpretation (test cod e = 59243-0) Normal [facility] CenterCB WITH [id number] 06:02:35* Test Item Value Reference Range Interpretation [...] 32.4 g/dL 31.2-35.0 RDW-SD (test code = 10467-1) 50.2 fL 38.5-51.6 RDW-CV (test code = 788-0) 14.3 % 12.1-15.4 PLT (test code = 777-3) 241 See_Comment [Automated messa ge] The system which generated this result transmitted reference range: 150 - 328 10*3/?L. The reference range was not used to interpret this result as normal/abnormal. MPV (test code = 38370-9) 8.6 fL 9.8-13.0 L NRBC/100 WBC (test code = 0790186832) 0.0 See_Comment [Automated me ssage] The system which generated this result transmitted reference range: 0.0 - 10.0 /100 WBCs. The reference range was not used to interpret this result as normal/abnormal. NRBC x10^3 (test code = 3909200419) See_Comment [Automated messa ge] The system which generated this result transmitted reference range: 10*3/?L. The reference range was not used to interpret this result as normal/abnormal. GRAN MAT (NEUT) % (test code = 770-8) 63.9 % IMM GRAN % (test code = 3944840632) 0.50 % LYMPH % (test code = 736-9) 17.6 % MONO % (test code = 5905-5) 16.5 % EOS % (test code = 713-8) 0.7 % BASO % (test code = 706-2) 0.8 % GRAN MAT x10^3(ANC) (test code = 3050876914) 4.79 10*3/uL 1.99-6.95 IMM GRAN x10^3 (test code = 7887955711) 0.04 10*3/uL 0.00-0.06 LYMPH x10^3 (test code = 731-0) 1.32 10*3/uL 1.09-3.23 MONO x10^3 (test code = 742-7) 1.24 10*3/uL 0.36-1.02 H EOS x10^3 (test code = 711-2) 0.05 10*3/uL 0.06-0.53 L BASO x10^3 (test code = 704-7) 0.06 10*3/uL 0.01-0.09 Lab Interpretation (test code = 05568-1) Abnormal [facility] CenterGERMANIA G3806-10-62 15:15:32* Test Item Value Reference Range Interpretation Comments TROPONIN I (test code = 1960645598) 0.007 ng/mL See_Comment [Automated message] The system [...] of biotin. Lab Interpretation (test code = 41503-5) Normal [facility] CenteraPTT2022-10-16 15:08:29* Test Item Value Reference Range Interpretation Comme nts APTT Patient (test code = 3173-2) See_Comment [Automated message] The system which generated this result transmitted reference range: 23 - 38 Seconds. The reference range was not used to interpret this result as normal/abnormal. JUAN ALBERTO (test code = JUAN ALBERTO) The [facility] patient population mean normal value for aPTT is 30 seconds. Lab Interpretation (test code = 95247-0) Normal [facility] CenterPROTHROMBIN TIME / [id number] 15:06:28* Test Item Value Reference Range Interpretation Comme nts PROTIME PATIENT (test code = 5964-2) See_Comment [Automated Provigenta ge] The system which generated this result transmitted reference range: 12.0 - 14.7 Seconds. The reference range was not used to interpret this result as normal/abnormal. INR (test code = 6301-6) Normal INR <1.1; Warfarin Therapeutic range 2.0 to 3.0 or 2.5 to 3.5, depending upon the indications. Lab Interpretation (test code = 50584-5) Normal [facility] CenterCOMP. METABOLIC PANEL (87426)2022-04-06 15:03:31* Test Item Value Reference Range Interpretation Comme nts NA (test code = 0362452793) 136 mmol/L 135-145 K (test code = 3868659488) 5.0 mmol/L 3.5-5 CL (test code = 6898010501) 104 mmol/L 98-108 CO2 TOTAL (test code = 3886536836) 21 mmol/L 23-31 L AGAP (test code = 2692685227) 2-16 BUN (test code = 7344853458) 11 mg/dL 7-23 GLUCOSE (test code = 2191638997) 162 mg/dL 70-110 H CREATININE (test code = 1750343631) 0.52 mg/dL 0.6-1.25 L TOTAL BILI (test code = 9283271535) 1.0 mg/dL 0.1-1.1 CALCIUM (test code = 3878380217) 9.3 mg/dL 8.6-10.6 T PROTEIN (test code = 7159331248) 7.4 g/dL 6.3-8.2 ALBUMIN (test code = 9970372222) 4.4 g/dL 3.5-5 ALK PHOS (test code = 8545186313) 134 U/L 34-122 H ALTv (test code = 1742-6) 17 U/L 5-50 AST(SGOT) (test code = 0372031858) 38 U/L 13-40 eGFR (test code = 3046649481) mL/min/1.73m2 JUAN ALBERTO (test code = JUAN [...] imaging tests). Lab Interpretation (test code = 10620-6) Abnormal [facility] CenterLIPASE, [id number] 15:03:31* Test Item Value Reference Range Interpretation Comme nts LIPASE (test code = 6563374885) 29 U/L 0-220 Lab Interpretation (test cod e = 22354-6) Normal [facility] CenterCBC WITH [id number] 14:51:49* Test Item Value Reference Range Interpretation Comme nts WBC (test code = 6690-2) See_Comment [Automated [employer]] The system which generated this result transmitted reference range: 4.20 - 10.70 10*3/?L. The reference range was not used to interpret this result as normal/abnormal. RBC (test code = 789-8) See_Comment [Automated [employer]oud] The system which generated this result transmitted [...] 34.0 g/dL 31.2-35 RDW-SD (test code = 88752-0) 45.9 fL 38.5-51.6 RDW-CV (test code = 788-0) 13.3 % 12.1-15.4 PLT (test code = 777-3) See_Comment [Automated Provigenta ge] The system which generated this result transmitted reference range: 150 - 328 10*3/?L. The reference range was not used to interpret this result as normal/abnormal. MPV (test code = 90895-2) 8.4 fL 9.8-13 L NRBC/100 WBC (test code = 3687057003) See_Comment [Automated me ssage] The system which generated this result transmitted reference range: 0.0 - 10.0 /100 WBCs. The reference range was not used to interpret this result as normal/abnormal. NRBC x10^3 (test code = 7019472684) See_Comment [Automated messa ge] The system which generated this result transmitted reference range: 10*3/?L. The reference range was not used to interpret this result as normal/abnormal. GRAN MAT (NEUT) % (test code = 770-8) 63.0 % IMM GRAN % (test code = 8085156204) 0.50 % LYMPH % (test code = 736-9) 25.2 % MONO % (test code = 5905-5) 9.8 % EOS % (test code = 713-8) 0.3 % BASO % (test code = 706-2) 1.2 % GRAN MAT x10^3(ANC) (test code = 3170768901) 3.73 10*3/uL 1.99-6.95 IMM GRAN x10^3 (test code = 2527220941) 0.03 10*3/uL 0-0.06 LYMPH x10^3 (test code = 731-0) 1.49 10*3/uL 1.09-3.23 MONO x10^3 (test code = 742-7) 0.58 10*3/uL 0.36-1.02 EOS x10^3 (test code = 711-2) 0.06-0.53 L BASO x10^3 (test code = 704-7) 0.07 10*3/uL 0.01-0.09 Lab Interpretation (test code = 25968-3) Abnormal [facility] CenterUA, Urinalysis Rflx Cult/Cpmsz0267-29-88 13:53:00* Test Item Value Reference Range Interpretation Comme nts Color,Urine (test code = UCOL) Yellow Yellow Clarity,Urine (test code = UCLAR) Cloudy Clear A Ph, Urine (test code = UPH) 7.5 5.0-9.0 N Specific Brice,Urine (test code = USG) 1.025 1.005-1.030 N [...] = ULEU) Negative mg/dL Negative UF REFLEXDrug Screen,Qnaqq2507-80-40 13:53:00* Test Item Value Reference Range Interpretation [...] UPROP) Negative Negative Complete Blood Count Auto Biyd6207-98-39 12:58:00* Test Item Value Reference Range Interpretation [...] = NRBCP) 0 % Coronavirus PCR, COVID19 Mejcq4496-24-15 12:58:00* Test Item Value Reference Range Interpretation Comme nts Coronavirus PCR, COVID19 Rapid (test code = SARSCOV2) Coronavirus PCR, COVID19 Rapid (test code = HOJNQZU57.1) Reference Range: Negative SARS-CoV-2 PCR Result: (test code = SARS-CoV-2 PCR Result:) Negative by RT-PCR COVID-19 Status: AsymptomaticComprehensive Metabolic Fqutq3669-95-66 12:58:00* Test Item Value Reference Range Interpretation [...] = ALP) 144 U/L 46-116 H Ethanol Cvlqs7857-91-46 12:58:00* Test Item Value Reference Range Interpretation Comme nts Ethanol (test code = ETOH) < 3 mg/dL The pharmacologi yudy response to blood alcohol levels mayvary from individual to individual. The fatal concentrationhas been reported to be >400mg/dL. WAUFPNP4417-52-37 01:47:56* Test Item Value Reference Range Interpretation Comme nts [place] (test code = 6228427150) 0.7 mmol/L 0.6-1.2 JUAN ALBERTO (test code = JUAN ALBERTO) Toxic Range: ? Greater than 1.2 mmol/L Lab Interpretation (test code = 80469-9) Normal [facility] CenterTROPONIN [id number] 00:26:53* Test Item Value Reference Range Interpretation Comments TROPONIN I (test code = 9299098365) 0.002 ng/mL See_Comment [Automated message] The system [...] of biotin. Lab Interpretation (test code = 52623-7) Normal [facility] CenterETHANOL2022-08-01 00:18:52 ALCOHOL<10mg/dL01/19/2022 7:18 PM [facility] Waamvqey34-944 Toxic>100 Depression of WINDOWS TECHNICAL SPECIALIST>400 Fatalities ReportedUnOakBend [facility] CenterCOMP. METABOLIC PANEL (76185)2022-01-20 00:16:16* Test Item Value Reference Range Interpretation Comme nts NA (test code = 5339228711) 137 mmol/L 135-145 K (test code = 7944281992) 4.5 mmol/L 3.5-5 CL (test code = 3906729291) 103 mmol/L 98-108 CO2 TOTAL (test code = 0080239828) 26 mmol/L 23-31 AGAP (test code = 4342351399) 2-16 BUN (test code = 2970211515) 10 mg/dL 7-23 GLUCOSE (test code = 1849710942) 121 mg/dL 70-110 H CREATININE (test code = 0999059204) 0.65 mg/dL 0.6-1.25 TOTAL BILI (test code = 5683573263) 0.8 mg/dL 0.1-1.1 CALCIUM (test code = 7360670196) 11.4 mg/dL 8.6-10.6 H T PROTEIN (test code = 3362561358) 7.2 g/dL 6.3-8.2 ALBUMIN (test code = 1048195294) 4.6 g/dL 3.5-5 ALK PHOS (test code = 6625976348) 112 U/L 34-122 ALTv (test code = 1742-6) 19 U/L 5-50 AST(SGOT) (test code = 3795431288) 26 U/L 13-40 eGFR (test code = 2514329996) mL/min/1.73m2 JUAN ALBERTO (test code = JUAN [...] imaging tests). Lab Interpretation (test code = 37188-6) Abnormal [facility] WITH GYCC7013-37-20 23:43:54* Test Item Value Reference Range Interpretation Comme nts WBC (test code = 6690-2) See_Comment [Automated MD.Voice] The system which generated this result transmitted reference range: 4.20 - 10.70 10*3/?L. The reference range was not used to interpret this result as normal/abnormal. RBC (test code = 789-8) See_Comment [White Source] The system which generated this result transmitted [...] 34.4 g/dL 31.2-35 RDW-SD (test code = 80201-0) 44.0 fL 38.5-51.6 RDW-CV (test code = 788-0) 12.6 % 12.1-15.4 PLT (test code = 777-3) See_Comment [White Source] The system which generated this result transmitted reference range: 150 - 328 10*3/?L. The reference range was not used to interpret this result as normal/abnormal. MPV (test code = 12244-0) 9.1 fL 9.8-13 L NRBC/100 WBC (test code = 6665169597) See_Comment [Automated me ssage] The system which generated this result transmitted reference range: 0.0 - 10.0 /100 WBCs. The reference range was not used to interpret this result as normal/abnormal. NRBC x10^3 (test code = 1886620468) See_Comment [Automated messa ge] The system which generated this result transmitted reference range: 10*3/?L. The reference range was not used to interpret this result as normal/abnormal. GRAN MAT (NEUT) % (test code = 770-8) 69.8 % IMM GRAN % (test code = 9587378538) 0.40 % LYMPH % (test code = 736-9) 18.0 % MONO % (test code = 5905-5) 10.9 % EOS % (test code = 713-8) 0.1 % BASO % (test code = 706-2) 0.8 % GRAN MAT x10^3(ANC) (test code = 4471105990) 5.58 10*3/uL 1.99-6.95 IMM GRAN x10^3 (test code = 6245152645) 0.03 10*3/uL 0-0.06 LYMPH x10^3 (test code = 731-0) 1.44 10*3/uL 1.09-3.23 MONO x10^3 (test code = 742-7) 0.87 10*3/uL 0.36-1.02 EOS x10^3 (test code = 711-2) 0.06-0.53 L BASO x10^3 (test code = 704-7) 0.06 10*3/uL 0.01-0.09 Lab Interpretation (test code = 35815-5) Abnormal [facility] acute hospital GLUCOSE (AUTOMATED)2022-01-19 22:27:41* Test Item Value Reference Range Interpretation Comme nts POCT GLU (test code = 0367556392) 123 mg/dL 70-110 H Lab Interpretation (test cod e = 76685-8) Abnormal General acute hospital GLUCOSE (AUTOMATED)2021-12-30 22:08:16* Test Item Value Reference Range Interpretation Comme nts POCT GLU (test code = 7650934963) 167 mg/dL 70-110 H Lab Interpretation (test cod e = 43400-6) Abnormal General acute hospital GLUCOSE (AUTOMATED)2021-12-30 16:50:40* Test Item Value Reference Range Interpretation Comme nts POCT GLU (test code = 1175921300) 154 mg/dL 70-110 H Lab Interpretation (test cod e = 56647-7) Abnormal General acute hospital GLUCOSE (AUTOMATED)2021-12-30 12:38:43* Test Item Value Reference Range Interpretation Comme nts POCT GLU (test code = 3765393277) 164 mg/dL 70-110 H Lab Interpretation (test cod e = 32542-6) Abnormal General acute hospital GLUCOSE (AUTOMATED)2021-12-30 02:14:58* Test Item Value Reference Range Interpretation Comme nts POCT GLU (test code = 6986143196) 220 mg/dL 70-110 H Lab Interpretation (test cod e = 13060-7) Abnormal General acute hospital GLUCOSE (AUTOMATED)2021-12-29 21:50:02* Test Item Value Reference Range Interpretation Comme nts POCT GLU (test code = 1786259841) 191 mg/dL 70-110 H Lab Interpretation (test cod e = 81781-2) Abnormal General acute hospital GLUCOSE (AUTOMATED)2021-12-29 20:15:01* Test Item Value Reference Range Interpretation Comme nts POCT GLU (test code = 2229744874) 163 mg/dL 70-110 H Lab Interpretation (test cod e = 79483-5) Abnormal [facility] CenterTransthoracic echo (TTE)2021-12-29 19:12:22* Test Item Value Reference Range Interpretation Comme nts Height (test code = 0346778694) in Weight (test code = 2069228341) lbs Systolic BP (test code = 9021391127) mmHg Diastolic BP (test code = 2956279843) mmHg Heart Rate (test code = 1470087118) bpm BSA (test code = 0486100476) 1.62 m2 Ao root annulus (test code = 7230038073) 2.45 cm Ao root diam (test code = 2032160340) 2.45 cm Aortic root (test code = 0182693429) 2.45 cm ACS (test code = 4248939527) 1.66 cm LA size (test code = 6834435646) 3.2 cm LVOT diameter (test code = 0929820521) 1.95 cm LVIDD (test code = 1633223683) 3.60 cm IVS (test code = 9376676855) 0.94 cm Interventricular Septum Diastolic Thickness by 2D (test code = 3068980) 0.94 cm LVPWD (test code = 6939841628) 0.80 cm PW (test code = 6135506540) 0.80 cm 0.6-1.1 EF(Teich) (test code = 0228627871) 52.80 % LVIDS (test code = 8925249090) 2.60 cm FS (test code = 0921650851) 27 % EF - 2D (test code = 40133672) 52.80 % LAV(MOD-sp4) (test code = 0863191794) 16.80 mL MV Peak E Jovany (test code = 0184911911) 46.1 cm/s E wave decelartion time (test code = 8849794548) 0.31 s MV Peak A Jovany (test code = 7970266753) 58.1 cm/s E/A ratio (test code = 7266165587) ratio MV E/e' septal (test code = 7453973159) 5.7 cm/s Tapse (test code = 1033942787) 1.60 cm LVOT stroke volume (test code = 1044712564) 52.10 cm3 LVOT peak jovany (test code = 5859745055) 110.6 cm/s LVOT mn grad (test code = 1895819219) mmHg AV LVOT peak gradient (test code = 0949651338) mmHg LVOT peak VTI (test code = 5945838671) 17.4 cm LV V1 mean (test code = 5744068454) 66.10 cm/s Aortic valve mean velocity (test code = 9216669999) 73.0 cm/s Ao peak jovany (test code = 9000309355) 124.6 cm/s Ao VTI (test code = 9234381296) 18.6 cm AV area by cont VTI (test code = 6710450460) 2.8 cm2 AV area peak jovany (test code = 8745980450) 2.7 cm2 Ao max PG (test code = 2036089728) 6.20 mm[Hg] AV peak gradient (test code = 3669163159) mmHg AV valve area (test code = 5105629108) 2.80 cm2 AV mean gradient (test code = 3662476329) mmHg Radiology Study observation (narrative) (test code = 38673-9) JUAN ALBERTO (test code = JUAN ALBERTO) [...] mL of Lumason ultrasound enhancing agent used. [facility]2021-12-29 12:50:31* Test Item Value Reference Range Interpretation Comme nts POCT GLU (test code = 8561641928) 141 mg/dL 70-110 H Lab Interpretation (test cod e = 21183-5) Abnormal [facility] [id number] 10:38:31* Test Item Value Reference Range Interpretation Comments TROPONIN I (test code = 3191696950) 0.003 ng/mL See_Comment [Automated message] The system [...] of biotin. Lab Interpretation (test code = 34567-1) Normal [facility] [facility] CenterLIP[facility]EL (13916)(TOTAL CHOLESTEROL, TRIGLYCERIDES, HDL)2021-12-29 05:56:47* Test Item Value Reference Range Interpretation Comme nts CHOL (test code = 5322527559) 168 mg/dL 120-200 HDL (test code = 7567552013) 102 mg/dL See_Comment [Automated MD.Voice] The system which generated this result transmitted reference range: >=40. The reference range was not used to interpret this result as normal/abnormal. HDLC RATIO (test code = 7641507376) See_Comment [Automated MD.Voice] The system which generated this result transmitted reference range: <=5.0. The reference range was not used to interpret this result as normal/abnormal. TRIG (test code = 2343372974) 55 mg/dL 30-170 LDL CHOL (test code = 04597-4) 55 mg/dL See_Comment [Automated MD.Voice] The system which generated this result transmitted reference range: <=160. The reference range was not used to interpret this result as normal/abnormal. VLDL (test code = 6090372566) 11 mg/dL 5-60 Lab Interpretation (test code = 95480-3) Normal [facility] CenterThyroid Stimulating Hormone (TSH)2021-12-29 05:40:29* Test Item Value Reference Range Interpretation Comme nts TSH (test code = 5049141142) See_Comment Biotin has been reported to cause a negative bias, interpret results relative to patient's use of biotin. [Automated message] The system which generated this result transmitted reference range: 0.45 - 4.70 mIU/L. The reference range was not used to interpret this result as normal/abnormal. Lab Interpretation (test code = 20022-3) Normal [facility] [id number] 05:34:29* Test Item Value Reference Range Interpretation Comments TROPONIN I (test code = 4819225658) 0.006 ng/mL See_Comment [Automated message] The system [...] of biotin. Lab Interpretation (test code = 59976-0) Normal [facility] CenterETHANOL2022-07-10 04:43:01 ALCOHOL<10mg/dL12/28/2021 11:43 PM CDCONNE[facility] LABORATORYToxic Greater than or equal to 80 mg/dL. NOTE: Whole blood values are approximately 10% to 15% lower than serum and plasma.[facility] Glycosylated Hemoglobin (A1C)2021-12-29 01:51:44* Test Item Value Reference Range Interpretation Comme nts HGB A1C (test code = 4548-4) 6.5 % 4-5.7 H JUAN ALBERTO (test code = JUAN ALBERTO) Reference RangesNormal: <5.7%Prediabetes: 5.7 - 6.4%Diabetes: > 6.5% Lab Interpretation (test code = 77322-7) Abnormal [facility] [id number] 21:26:50* Test Item Value Reference Range Interpretation Comments TROPONIN I (test code = 4710075940) 0.002 ng/mL See_Comment [Automated message] The system [...] of biotin. Lab Interpretation (test code = 51191-2) Normal [facility] CenterN-TERMINAL [id number]-[id number] 21:23:29* Test Item Value Reference Range Interpretation Comme nts NT-proBNP (test code = 4965052832) 41 pg/mL See_Comment [Automated message] The system which generated this result transmitted reference range: <=125. The reference range was not used to interpret this result as normal/abnormal. JUAN ALBERTO (test code = JUAN ALBERTO) Biotin has been reported to cause a negative bias, interpret results relative to patient's use of biotin. Lab Interpretation (test code = 19936-0) Normal [facility] CenterAMMONIA, [id number] 21:20:38* Test Item Value Reference Range Interpretation Comme nts AMMONIA (test code = 1311395847) 9-33 L Slight hemolysis Lab Interpretation (test code = 75838-5) Abnormal [facility] CenterCOMP. METABOLIC PANEL (68661)2021-12-28 21:08:48* Test Item Value Reference Range Interpretation Comme nts NA (test code = 4759463488) 137 mmol/L 135-145 K (test code = 9560641393) 4.5 mmol/L 3.5-5 CL (test code = 1888515587) 97 mmol/L 98-108 L CO2 TOTAL (test code = 5657544225) 29 mmol/L 23-31 AGAP (test code = 6715001153) 2-16 BUN (test code = 7764058416) 10 mg/dL 7-23 GLUCOSE (test code = 5089443989) 188 mg/dL 70-110 H CREATININE (test code = 9939402714) 0.58 mg/dL 0.6-1.25 L TOTAL BILI (test code = 2107758168) 0.8 mg/dL 0.1-1.1 CALCIUM (test code = 8840987164) 10.5 mg/dL 8.6-10.6 T PROTEIN (test code = 9618956464) 7.6 g/dL 6.3-8.2 ALBUMIN (test code = 3537429668) 4.5 g/dL 3.5-5 ALK PHOS (test code = 0013631608) 107 U/L 34-122 ALTv (test code = 1742-6) 66 U/L 5-50 H AST(SGOT) (test code = 6099152301) 96 U/L 13-40 H eGFR (test code = 2702025644) mL/min/1.73m2 JUAN ALBERTO (test code = JUA NALBERTO) Association of Glomerular Filtration Rate (GFR) and [...] imaging tests). Lab Interpretation (test code = 48617-9) Abnormal [facility] CenterPROTHROMBIN TIME / [id number] 21:01:25* Test Item Value Reference Range Interpretation Comme nts PROTIME PATIENT (test code = 5964-2) See_Comment [Automated MD.Voice] The system which generated this result transmitted reference range: 12.0 - 14.7 Seconds. The reference range was not used to interpret this result as normal/abnormal. INR (test code = 6301-6) Normal INR <1.1; Warfarin Therapeutic range 2.0 to 3.0 or 2.5 to 3.5, depending upon the indications. Lab Interpretation (test code = 90937-5) Normal [facility] CenterCBC WITH [id number] 20:54:03* Test Item Value Reference Range Interpretation Comme nts WBC (test code = 6690-2) See_Comment [Automated MD.Voice] The system which generated this result transmitted reference range: 4.20 - 10.70 10*3/?L. The reference range was not used to interpret this result as normal/abnormal. RBC (test code = 789-8) See_Comment [Automated Provigenta Qloud] The system which generated this result transmitted [...] 34.2 g/dL 31.2-35 RDW-SD (test code = 94739-7) 47.8 fL 38.5-51.6 RDW-CV (test code = 788-0) 13.3 % 12.1-15.4 PLT (test code = 777-3) See_Comment [Automated messa ge] The system which generated this result transmitted reference range: 150 - 328 10*3/?L. The reference range was not used to interpret this result as normal/abnormal. MPV (test code = 93571-5) 8.6 fL 9.8-13 L NRBC/100 WBC (test code = 4887754076) See_Comment [Automated Dazo ssage] The system which generated this result transmitted reference range: 0.0 - 10.0 /100 WBCs. The reference range was not used to interpret this result as normal/abnormal. NRBC x10^3 (test code = 5257865416) See_Comment [Automated messa ge] The system which generated this result transmitted reference range: 10*3/?L. The reference range was not used to interpret this result as normal/abnormal. GRAN MAT (NEUT) % (test code = 770-8) 64.1 % IMM GRAN % (test code = 7922657561) 0.40 % LYMPH % (test code = 736-9) 16.6 % MONO % (test code = 5905-5) 17.2 % EOS % (test code = 713-8) 0.2 % BASO % (test code = 706-2) 1.5 % GRAN MAT x10^3(ANC) (test code = 9294606281) 3.47 10*3/uL 1.99-6.95 IMM GRAN x10^3 (test code = 8946319665) 0-0.06 LYMPH x10^3 (test code = 731-0) 0.90 10*3/uL 1.09-3.23 L MONO x10^3 (test code = 742-7) 0.93 10*3/uL 0.36-1.02 EOS x10^3 (test code = 711-2) 0.06-0.53 L BASO x10^3 (test code = 704-7) 0.08 10*3/uL 0.01-0.09 Lab Interpretation (test code = 76862-2) Abnormal [facility] CenterEthanol [id number] 21:08:00* Test Item Value Reference Range Interpretation Comme nts Ethanol (test code = ETOH) < 3 mg/dL The pharmacologi yudy response to blood alcohol levels mayvary from individual to individual. The fatal concentrationhas been reported to be >400mg/dL. Complete Blood Count Auto Bgur5330-70-56 17:33:00* Test Item Value Reference Range Interpretation [...] = NRBCP) 0 % UA, Urinalysis Rflx Cult/Jnmxj6624-54-92 17:33:00* Test Item Value Reference Range Interpretation Comme nts Color,Urine (test code = UCOL) Dark Yellow Yellow A Clarity,Urine (test code = UCLAR) Clear Clear Ph, Urine (test code = UPH) 6.5 5.0-9.0 N Specific Brice,Urine (test code = USG) 1.015 1.005-1.030 N [...] = ULEU) Trace mg/dL Negative A Urine Wmstkfhctrn0545-53-33 17:33:00* Test Item Value Reference Range Interpretation Comme nts RBC,Urine (test code = URBCUF) None Seen /HPF 0-2 WBC,Urine (test code = UWBCUF) 0-5 /HPF 0-5 Epithelial Cell,Urine (test code = UECUF) 0-5 /HPF 0-5 Casts,Urine (test code = UCASTUF) None Seen /LPF None Seen Bacteria,Urine (test code = UBACTUF) None Seen /hpf None Seen Drug Screen,[id number] 17:33:00* Test Item Value Reference Range Interpretation [...] code = UPROP) Negative Negative Comprehensive Metabolic Allrr6773-94-47 17:33:00* Test Item Value Reference Range Interpretation [...] 101 U/L 46-116 N Sars-CoV-2/FLU A/B RSV [id number] 17:31:00* Test Item Value Reference Range Interpretation [...] SARS-CoV-2 PCR Result:) Negative by RT-PCR Drug Screen,Kehio1763-98-02 17:20:00* Test Item Value Reference Range Interpretation [...] UPROP) Negative Negative Complete Blood Count Auto Ufax7399-52-38 17:14:00* Test Item Value Reference Range Interpretation [...] code = NRBCP) 0 % Comprehensive Metabolic Jydbv1493-65-18 17:14:00* Test Item Value Reference Range Interpretation [...] = ALP) 207 U/L 46-116 H Ethanol Einhs2251-94-80 17:14:00* Test Item Value Reference Range Interpretation Comme nts Ethanol (test code = ETOH) 192 mg/dL Complete Blood Count Auto Ivee7611-58-86 20:20:00* Test Item Value Reference Range Interpretation [...] code = NRBCP) 0 % Comprehensive Metabolic Fvvte2102-99-10 20:20:00* Test Item Value Reference Range Interpretation [...] = ALP) 189 U/L 46-116 H Ethanol Hvuwy4848-08-73 20:20:00* Test Item Value Reference Range Interpretation Comme nts Ethanol (test code = ETOH) 10 mg/dL Sars-CoV-2/FLU A/B RSV QGH5667-65-06 20:20:00* Test Item Value Reference Range Interpretation [...] Negative by Nucleic Acid Amplification UA, Urinalysis Rttslwxvpwf7812-80-31 20:20:00* Test Item Value Reference Range Interpretation Comme nts Color,Urine (test code = UCOL) Yellow Y Clarity,Urine (test code = UCLAR) Clear Clear PH,Urine (test code = UPH.XX) 7.0 5.5-8.5 Specific Brice,Urine (test code = USG) 1.020 1.005-1.030 N [...] code = ULEU) Negative cells/uL Negative Drug Screen,Decyo3823-15-29 20:20:00* Test Item Value Reference Range Interpretation [...] (test code = UTHCS) Negative [facility] TO [facility] CT head/brain wo [facility] [address] [place] [address] Patient Name: Walt Velazquez Medical Record#: [id number] Address: Homeless City/State/Zip: [place] [address]: Vinnie Navarro MD Phone: Insurance:Self Pay /Age/Sex: 1970/50/M Admit/Reg Date: 09/17/[address]: Vinnie Navarro MD Location: [facility]/ PCP: PcpMd KERWIN Jimenez Date of Service: 09/17/21 Order (s): CT head/brain wo con CPT Code: 03131 Report Number: [id number] Reason for Exam: Altered mental status Location [...] cm. Visual inspection. Electronically signed by: Karen aJy MD 09/17/2021 6:42 PM CDT Dictated By: Karen Sanders MD 09/17/211824 Signed By: Karen Sanders MD 09/17/211824 TD/TT: 09/17/211824 Tech: ES135 cc: PCPNO; GENESIS* Vinnie Navarro MD; Pcp-None,Md SURESH Notes Date/Time Note Provider Source 2023-11-05 16:26:20 2332-18-67W87:26:20F ormatting of this note might be different from the original.Pt discharged with diagnosis of CP. Printed and verbal instructions reviewed with and given to pt. Prescriptions given x 0. Pt verbalized understanding of teaching and recommended follow-up. Denies questions or concerns at this time. Pt ambulatory to holding room to await transportation at discharge. Appears in no apparent distress. No ataxia noted. Accompanied by [facility] officer. 93849-7Yrdfpvusn department DgssGS7799-95-33R21:26:59Emergency department NoteTXT1.2.840.749416.1.13.104.2.7 .2.294420|[id number] for patient yinh18646-9KchqOAJKEFNLAFQDyeazvvw d C-CDA narrative [id number] R Potter RNUT[address] [id number] 91WXPHQXGGLQYNGNETGJMAWT6622-45-02 T16:26:591.2.840.832989.1.72.3.15| 1.2.840.188021.1.13.104.2.7.2.7278 [id number] Renae Saldivar RN [facility] 2023-11-05 14:56:10 9343-12-01M41:56:10F ormatting of this note might be different from the original.Walt Velazquez Sr. is a 52 year old male arrive via [facility] c/o " throbbing ball in chest" since 0600 has been constant, pt immediately asks for food, 83629-5Ktmkmgpqe department Triage qtazDV8573-47-80R33:00:30[facility] Triage noteTXT1.2.840.441336.1.13.104.2.7 .2.013119|[id number] for patient vlzr77429-5Dgpjzfinz department NoteLNNARRATIVEFormatted C-CDA narrative [id number] M. Barton RNUT[address] [id number] 50ESUORDISITGIZWSSQYUYIC4424-89-99 T15:00:301.2.840.455986.1.72.3.15| 1.2.840.885604.1.13.104.2.7.2.7278 [id number] Emani Gomez RN [facility]
--- NOTE | 2023-12-04 01:33 | EDPHYS ---
Physician Documentation [facility] Name: Walt Velazquez Age: 52 yrs Sex: Male : 1970 Arrival Date: 12/04/2023 Time: 00:10 Bed 4 Private MD: ED Physician Jules Lucero HPI: 12/03 00:13 This 52 yrs old Male presents to ER via Unassigned with complaints of chest sp4 pain . 04:32 52-year-old male presents with EMS for complaint of chest pain. Patient is very sp4 familiar to me from prior visits for mostly alcohol intoxication. No history of coronary artery disease.. Historical: - Allergies: 00:55 Trazodone; bm8 - Home Meds: 00:55 Unable to obtain [Active]; bm8 - PMHx: 00:55 Alcoholism; Hypertensive disorder; Bipolar II; Seizure; Parkinsons; bm8 - PSHx: 00:55 Unable to Obtain; bm8 - Immunization history:: Adult Immunizations unknown. - Infectious Disease History:: Denies. - Social history:: Smoking status: Patient reports the use of cigarette tobacco products, Patient uses alcohol. - Family history:: not pertinent. ROS: 04:32 Constitutional: Negative for fever, chills, and weight loss, positive chest pain sp4 04:32 All other systems are negative, Exam: 04:32 Constitutional: This is a well developed, well nourished patient who is awake, alert, sp4 and in no acute distress. Head/Face: Normocephalic, atraumatic. Eyes: Pupils equal round and reactive to light, extra-ocular motions intact. Lids and lashes normal. Conjunctiva and sclera are not injected. Cornea within normal limits. Periorbital areas with no swelling, redness, or edema. ENT: Nares patent. No nasal discharge, no septal abnormalities noted. Tympanic membranes are normal and external auditory canals are clear. Oropharynx with no redness, swelling, or masses, exudates, or evidence of obstruction, uvula midline. Mucous membranes moist. Neck: Trachea midline, no thyromegaly or masses palpated, and no cervical lymphadenopathy. Supple, full range of motion without nuchal rigidity, or vertebral point tenderness. Chest/axilla: Normal chest wall appearance and motion. Nontender with no deformity. No lesions are appreciated. Cardiovascular: Regular rate and rhythm with a normal S1 and S2. No gallops, murmurs, or rubs. Normal PMI, no JVD. No pulse deficits. Respiratory: Lungs have equal breath sounds bilaterally, clear to auscultation and percussion. No rales, rhonchi or wheezes noted. No increased work of breathing, no retractions or nasal flaring. Abdomen/GI: Soft, with normal bowel sounds. No distension or tympany. No guarding or rebound. No evidence of tenderness throughout. Back: No spinal tenderness. No costovertebral tenderness. Skin: Warm, dry with normal turgor. Normal color with no rashes, no lesions, and no evidence of cellulitis. MS/ Extremity: Pulses equal, no cyanosis. Neurovascular intact. Full, normal range of motion. Neuro: Awake and alert, GCS 15, oriented to person, place, time, and situation. Cranial nerves II-XII grossly intact. Motor strength 5/5 in all extremities. Sensory grossly intact. Psych: Awake, alert, with orientation to person, place and time. Behavior, mood, and affect are within normal limits 04:32 ECG was reviewed by the Attending Physician. EKG at 0029 normal sinus rhythm with a rate of 85 normal EKG. Vital Signs: 00:53 BP 119 / 80; Pulse 85; Resp 17; Temp 98.7; Pulse Ox 100% ; Weight 72.57 kg; Height 5 bm8 ft. 3 in. ; Pain 0/10; 01:35 bm8 00:53 Body Mass Index 28.34 (72.57 kg, 160.02 cm) bm8 00:53 Pain Scale: Adult bm8 01:35 pt refused last vital signs bm8 Mariia Coma Score: 00:56 Eye Response: spontaneous(4). Motor Response: obeys commands(6). Verbal Response: bm8 oriented(5). Total: 15. 04:32 Eye Response: spontaneous(4). Motor Response: obeys commands(6). Verbal Response: sp4 oriented(5). Total: 15. MDM: 00:13 Patient medically screened. sp4 04:35 Differential Diagnosis altered mental status, Alcohol intoxication, chest pain,. Data sp4 reviewed: vital signs, nurses notes, lab test result(s), EKG. ED course: Troponin negative today. Stable for discharge home.. 04:35 Scoring Tools HEART Score: History: Slightly Suspicious (0) ECG: Normal (0) Age: > 45 sp4 and < 65 years (1) Risk Factors: No Risk factors known (0) Troponin: < or = 1 x Normal limit (0) Total Score = 1. 12/03 00:13 Order name: Alcohol Level; Complete Time: 04:31 sp4 12/03 00:13 Order name: Troponin High Sensitivity; Complete Time: : sp4 12/03 00:13 Order name: EKG; Complete Time: 00:14 sp4 12/03 00:13 Order name: EKG - Nurse/Tech; Complete Time: 00:58 sp4 EC:32 Rate is 85 beats/min. Rhythm is regular, Normal Sinus Rhythm. QRS [place] is Normal. [place] sp4 interval is normal. QRS interval is normal. QT interval is normal. No Q waves. T waves are Normal. No ST changes noted. Clinical impression: Normal ECG. Interpreted by me. Reviewed by me. Administered Medications: No medications were administered Disposition Summary: 12/04/23 01:32 Discharge Ordered Notes: Location: Home sp4 Problem: new sp4 Symptoms: have improved sp4 Condition: Stable sp4 Diagnosis - Alcohol abuse sp4 - Chest pain, unspecified sp4 Followup: sp4 - With: Private Physician - When: 7 - 10 days - Reason: Recheck today's complaints Discharge Instructions: - Discharge Summary Sheet sp4 - Nonspecific Chest Pain, Adult sp4 Signatures: Dispatcher [employer] EDJules Nixon MD MD sp4 Venancio Brown RN RN bm8 Corrections: (The following items were deleted from the chart) 00:14 00:14 ETHANOL+C.LAB.BRZ ordered. EDMS EDMS 00:14 00:14 Troponin High Sensitivity+C.LAB.BRZ ordered. EDMS EDMS
--- NOTE | 2023-12-04 01:33 | ER ---
Nurse's Notes [facility] Name: Walt Velazquez Age: 52 yrs Sex: Male : 1970 Arrival Date: 12/04/2023 Time: 00:10 Bed 4 Private MD: Diagnosis: Alcohol abuse;Chest pain, unspecified Presentation: 12/03 00:53 Chief complaint: Patient states: chest pain earlier tonight but gone now described as a bm8 burning pain. Coronavirus screen: Vaccine status: Patient reports receiving the 1st dose of the Covid vaccine. Ebola Screen: Patient denies travel to an Ebola-affected area in the 21 days before illness onset. No symptoms or risks identified at this time. Initial Sepsis Screen: Does the patient meet any 2 criteria? No. Patient's initial sepsis screen is negative. Does the patient have a suspected source of infection? No. Patient's initial sepsis screen is negative. Risk Assessment: Do you want to hurt yourself or someone else? Patient reports no desire to harm self or others. Onset of symptoms was December 03, 2023 at 19:00. 00:53 Acuity: LATASHA 2 bm8 00:53 Method Of Arrival: EMS: [facility] bm8 Triage Assessment: 00:55 General: Appears in no apparent distress. comfortable, Behavior is calm, cooperative, bm8 appropriate for age. Pain: Denies pain. Cardiovascular: Reports chest pain, earlier in the evening but gone now. Heart tones S1 S2 present Capillary refill < 3 seconds Patient's skin is warm and dry. Respiratory: No deficits noted. Airway is patent Trachea midline Respiratory effort is even, unlabored, Respiratory pattern is regular, symmetrical, Breath sounds are clear bilaterally. Historical: - Allergies: 00:55 Trazodone; bm8 - Home Meds: 00:55 Unable to obtain [Active]; bm8 - PMHx: 00:55 Alcoholism; Hypertensive disorder; Bipolar II; Seizure; Parkinsons; bm8 - PSHx: 00:55 Unable to Obtain; bm8 - Immunization history:: Adult Immunizations unknown. - Infectious Disease History:: Denies. - Social history:: Smoking status: Patient reports the use of cigarette tobacco products, Patient uses alcohol. - Family history:: not pertinent. Screenin:56 [facility] ED Fall Risk Assessment (Adult) History of falling in the last 3 months, bm8 including since admission No falls in past 3 months (0 pts). [facility] ED Fall Risk Assessment (Adult) History of falling in the last 3 months, including since admission Confusion or Disorientation No (0 pts) Intoxicated or Sedated Yes (3 pts) Impaired Gait No (0 pts) Mobility Assist Device Used No (0 pt) Altered Elimination No (0 pt) Score/Fall Risk Level 3 or more points = High Risk Oriented to surroundings, Maintained a safe environment, Educated pt \T\ family on fall prevention, incl call for assistance when getting out of bed, Assessed \T\ reinforced patient's understanding of fall precautions. Abuse screen: Denies threats or abuse. Nutritional screening: No deficits noted. Tuberculosis screening: No symptoms or risk factors identified. Assessment: 00:56 Reassessment: see triage note. bm8 01:10 Reassessment: pt made statements that he was ready to go prior to receiving any bm8 results. IV dc'ed, Charge nurse convinced pt to stay until results are received. refusing to allow monitoring to be placed on him. 01:26 Reassessment: pt stated that he was ready to leave. informed provider. bm8 01:35 Reassessment: pt refused to allow vital signs to be taken. bm8 Vital Signs: 00:53 BP 119 / 80; Pulse 85; Resp 17; Temp 98.7; Pulse Ox 100% ; Weight 72.57 kg; Height 5 bm8 ft. 3 in. ; Pain 0/10; 01:35 bm8 00:53 Body Mass Index 28.34 (72.57 kg, 160.02 cm) bm8 00:53 Pain Scale: Adult bm8 01:35 pt refused last vital signs bm8 [place] Coma Score: 00:56 Eye Response: spontaneous(4). Motor Response: obeys commands(6). Verbal Response: bm8 oriented(5). Total: 15. 04:32 Eye Response: spontaneous(4). Motor Response: obeys commands(6). Verbal Response: sp4 oriented(5). Total: 15. ED Course: 00:12 Patient arrived in ED. rv1 00:13 Jules Lucero MD is Attending Physician. sp4 00:53 Venancio Brown, RN is Primary Nurse. bm8 00:54 Triage completed. bm8 00:55 Arm band placed on right wrist. bm8 00:56 Patient has correct armband on for positive identification. Bed in low position. Call bm8 light in reach. Side rails up X 1. Client placed on continuous cardiac and pulse oximetry monitoring. NIBP monitoring applied. land surveying party chief on. Pulse ox on. NIBP on. Door closed. Noise minimized. Visitors limited. Lights dimmed. Warm blanket given. Verbal reassurance given. Head of bed lowered. 00:56 No provider procedures requiring assistance completed. Initial lab(s) drawn, by me, bm8 sent to lab. EKG done, by ED staff, reviewed by Jules Lucero MD. Inserted saline lock: 18 gauge in right antecubital area, using aseptic technique. Blood collected. O2 via O2 not needed at this time. 01:35 Provided Education on: post er care. bm8 01:35 IV discontinued, intact, bleeding controlled, No redness/swelling at site. Pressure bm8 dressing applied. Administered Medications: No medications were administered Medication: 00:56 VIS not applicable for this client. bm8 Outcome: 01:32 Discharge ordered by . sp4 01:35 Discharged to home ambulatory, bm8 01:35 Condition: stable 01:35 Discharge instructions given to patient, Instructed on discharge instructions, follow up and referral plans. Demonstrated understanding of instructions, 01:37 Patient left the ED. bm8 Signatures: Sofia Velazquez rv1 Jules Lucero MD MD sp4 Venancio Brown, RN RN bm8 Corrections: (The following items were deleted from the chart) 00:55 00:53 Chief complaint: Patient states: chest pain earlier tonight but gone now bm8 described as a burning pain. bm8 00:55 00:53 Method Of Arrival: EMS: [facility] bm8 bm8
[2023-12-04 02:29] VITALS: BP 119/80; TEMP 98.7; O2SAT 100
--- NOTE | 2023-12-07 15:05 | EKG ---
Test Date: 2023-12-04 Test Time: 00:29:02 [employer]room G[employer] Supervisor: GE MEASUREMENT RESULTS: Intervals: Rate: 85 NC: 178 QRSD: 74 QT: 350 QTc: 416 [place]: P: 62 NC: 178 QRS: 47 T: -11 INTERPRETIVE STATEMENTS: Normal sinus rhythm Nonspecific T wave abnormality Abnormal ECG Compared to ECG 09/29/2023 11:03:51 T-wave abnormality now present Electronically Signed On 12-07-23 14:55:04 CDT by Cristhian Hernandez
== END 2023-12-04 01:37 | disposition home or self-care (01) ==
LOC: ER 00:10
DX: R07.9 Chest pain, unspecified (principal); F10.20 Alcohol dependence, uncomplicated
CPT/HCPCS: 36415; 82077; 84484; 93005; 99285

== ENCOUNTER 2023-12-04 10:21 | Emergency (ER) | payer SELFPAY ==
--- OUTSIDE RECORDS SUMMARY | 2023-12-04 10:27 | XMS REPORT | Continuity of Care Document ---
Author Name Unknown Address [address] [facility] [address] [place] [address] [facility] Address [address] [facility] [address] [place] [address] Care Team Providers Care Pathology Laboratory Aide Name Role Phone Pcp-None Primary Care Physician Unavailab Sulaiman Armenta DO Attending Clinician [phone] HEMANT KLEIN Attending Clinician Unavailable Hemant Klein MD Attending Clinician [phone] [place] Attending Clinician Unavailab JESSICA Gallardo Attending Clinician Unavailable Rayray Driscoll MD Attending Clinician + Jessica Prado MD Attending Clinician [phone] Oswald Murphy MD Attending Clinician [phone] DIYA CHOWDHURY Attending Clinician Unavailab Diya Mackey DO Attending Clinician [phone] Fidel Cuellar Attending Clinician Unavailable DIRK YARBROUGH Attending Clinician Unavailable Leticia Rowland Attending Clinician [phone] Dirk Yarbrough MD Attending Clinician [phone] Faye Portillo LVN Attending Clinician [phone] Pia Reddy Attending Clinician [phone] Vinnie Navarro Attending Clinician Unavailable OSWALD MURPHY Admitting Clinician Unavailable Oswald Murphy MD Admitting Clinician [phone] DIYA CHOWDHURY Admitting Clinician UnavailLeticia Gaytan Admitting Clinician Unavailable JESSICA PRADO Admitting Clinician Unavailable Jessica Prado MD Admitting Clinician [phone] Payers Payer Name Policy Type Policy Number Effective Date Expirati on Date Source Problems Condition Name Condition Details Condition Category Status Onset Date Resolution Date Last Treatment Date Treating Clinician Comments Source Alcohol withdrawal syndrome with complicati on Alcohol withdrawal syndrome with complicati on Disease Active 08-10 00:00: 00 [facility] Type 2 diabetes mellitus with other specified complicati on Type 2 diabetes mellitus with other specified complicati on Disease Active 12-29 00:00: 00 [facility] Dyslipidem ia Dyslipidem ia Disease Active 12-29 00:00: 00 [facility] Chest pain, unspecifie d type Chest pain, unspecifie d type Disease Active 12-28 00:00: 00 [facility] Priapism Priapism Disease Active 2013-06 1-06 00:00: 00 [facility] Allergies, Adverse Reactions, Alerts Allergy Name Allergy Type Status Severity Reaction(s) Onset Date Inactive Date Treating Clinician Comments Source No Known Drug Allergie s DA Active U 4-25 00:00: 00 [facility] No Known Drug Allergie s DA Active U 0 9-16 00:00: 00 [facility] No Known Drug Allergie s DA Active U 0 3-29 00:00: 00 [facility] No Known Drug Allergie s DA Active U 2019-06 2-16 00:00: 00 [facility] No Known Drug Allergie s DA Active U 2019-06 2-15 00:00: 00 [facility] No Known Drug Allergie s DA Active U 2019-06 2-02 00:00: 00 [facility] Trazodon e Propensi ty to adverse reaction s Active Other - See comments 10-06 00:00: 00 [facility] TRAZODON E DRUG INGREDI Active Other-Cmnt 10-06 00:00: 00 [facility] Social History Social Habit Start Date Stop Date Quantity Comments Source History of tobacco use Cigarette Smoker [facility] Exposure to SARS-CoV-2 (event) 2022-11-01 00:00:00 2022-11-11 13:57:00 Not sure [facility] Tobacco use and exposure 2022-08-10 00:00:00 2022-08-10 00:00:00 User of smokeless tobacco [facility] Alcohol intake 2022-08-10 00:00:00 2022-08-10 00:00:00 Current drinker of alcohol (finding) [facility] Tobacco Comment 2022-08-10 00:00:00 2022-08-10 00:00:00 1/2 a pack a day [facility] Alcoholic beverage intake 2022-08-10 00:00:00 2022-08-10 00:00:00 Current drinker of alcohol (finding) [facility] History of Social function 2022-08-10 00:00:00 2022-08-10 00:00:00 [facility] Sex assigned at 1970 00:00:00 1970 00:00:00 [facility] Smoking Status Start Date Stop Date Source Smokes tobacco daily 2022-08-10 00:00:00 [facility] Medications Ordered Medication Name Filled Medication Name Start Date Stop Date Current Medication? Ordering Clinician Indication Dosage Frequency Signature (SIG) Comments Components Source NaCl 0.9% (NS) bolus infusion 1,000 mL 11-11 19:45: 00 11-11 20:23 :00 No 1000mL at 999 mL/hr, 1,000 mL, IV Piggyback, ONCE, 1 dose, On Thu11/11/22 at 1445, STAT [facility] multivitami n tablet 1 tablet 2- 15:00: 00 Yes 1{tbl} 1 tablet, Oral, DAILY, First dose on Thu08/12/22 at 0900, Until Discontinu ed, Routine Univers [facility] foLIC acid (FOLATE) tablet 1 mg 08-12 15:00: 00 Yes 1mg 1 mg, Oral, DAILY, First dose on Thu08/12/22 at 0900, Until Discontinu ed, Routine Univers [facility] foLIC acid 1 mg tablet 08-12 00:00: 00 09-12 04:59 :00 No [id number] 1mg Take 1 tablet by mouth in the morning for 30 days. [facility] oxazepam (SERAX) capsule 15 [...] Thu08/13/22 at 0600, Routine [Order 2 End] [facility] thiamine (VITAMIN B1) tablet 100 mg 08-11 16:15: 00 Yes 100mg 100 mg, Oral, DAILY, First dose on Thu08/11/22 at 1015, Until Discontinu ed, Routine [facility] enoxaparin (LOVENOX) injection 40 mg 08-10 23:00: 00 Yes 40mg 40 mg, Subcutaneo us, DAILY, First dose on Thu08/10/22 at 1700, Until Discontinu ed, Routine [facility] NaCl 0.9% (NS) IV infusion 1,000 mL 08-10 15:00: 00 Yes 1000mL at 125 mL/hr, IV Infusion, CONTINUOUS , Starting on Thu08/10/22 at 0900, Until Discontinu ed, Routine [facility] foLIC acid (FOLATE) 5 mg in NaCl 0.9% (NS) piggyback 08-10 15:00: 00 08-11 16:14 :47 No 5mg IV Piggyback, DAILY, First dose on 08/10/22 at 0900, Until Discontinu ed, 50 mL Univers [facility] thiamine (VITAMIN B1) 100 mg in NaCl 0.9% (NS) piggyback 08-10 15:00: 00 08-10 16:08 :00 No 100mg IV Piggyback, DAILY, 1 dose, First dose on 08/10/22 at 0900, 50 mL [facility] LORazepam (ATIVAN) injection 2 mg 08-10 14:52: 57 Yes 2mg 2 mg, Slow IV Push, Q4HPRN, Starting on 08/10/22 at 0852, Until Discontinu ed, Routine, Seizures, Agitation, Anxiety [facility] Sliding Scale Insulin-Reg ular + Fsbg Testing 08-10 13:30: 00 Yes Subcutaneo us, AC+HS, First dose on Thu08/10/22 at 0730, Until Discontinu ed, Routine [facility] oxazepam (SERAX) capsule 15 mg 08-10 12:08: 05 Yes 15mg 15 mg, Oral, Q4HPRN, Starting on Thu08/10/22 at 0608, Until Discontinu ed, Routine, Only while awake for DBP equal to or greater than 100, HR equal to or greater than 100. [facility] dextrose 10% (D10W) bolus infusion 250 mL 08-10 12:03: 23 Yes 250mL 250 mL, IV Infusion, PRN - SEE INSTRUCTIO NS, Administer over 60 Minutes, Other, If blood glucose is < or = 70 mg/dL and patient is unable to swallow or has mental status changes, Starting on 08/10/22 at 0603
If blood glucose is [...] blood glucose is < 80 mg/dL, repeat.
[facility] glucagon (GLUCAGEN DIAGNOSTIC KIT) injection 1 mg 08-10 12:03: 20 Yes 1mg 1 mg, Intramuscu lar, PRN, Starting on Thu08/10/22 at 0603, Until Discontinu ed, JACIEL, Blood Glucose < or = 70 mg/dL and patient is NPO, unable to swallow or has mental changes. [facility] ondansetron (ZOFRAN (PF)) injection 4 mg 08-10 12:02: 53 Yes 4mg 4 mg, Slow IV Push, Q6HPRN, Starting on Thu08/10/22 at 0602, Until Discontinu ed, Routine, Nausea and Vomiting (N/V) [facility] ibuprofen (MOTRIN IB) tablet 200 mg 08-10 12:02: 45 Yes 200mg 200 mg, Oral, Q6HPRN, Starting on Thu08/10/22 at 0602, Until Discontinu ed, Routine, Pain (scale 1-3) [facility] NaCl 0.9% (NS) bolus infusion 1,000 mL 08-10 10:15: 00 08-10 13:00 :00 No 1000mL at 999 mL/hr, 1,000 mL, IV Infusion, ONCE, 1 dose, On Thu08/10/22 at 0415, STAT [facility] LORazepam (ATIVAN) injection 0.5 mg 08-10 09:15: 00 08-10 09:19 :00 No .5mg 0.5 mg, Slow IV Push, ONCE, 1 dose, On Thu08/10/22 at 0315, STAT [facility] LORazepam (ATIVAN) injection 1 mg 08-10 08:00: 00 08-10 07:05 :00 No 1mg 1 mg, Slow IV Push, ONCE NOW, 1 dose, On 08/10/22 at 0200, STAT [facility] thiamine (VITAMIN B1) injection 100 mg 08-10 06:45: 00 08-10 06:52 :00 No 100mg 100 mg, Intravenou s, ONCE, 1 dose, On 08/10/22 at 0045, [facility]AN) [facility] 1 mg 08-10 05:15: 00 08-10 05:22 :00 No 1mg 1 mg, Slow IV Push, ONCE, 1 dose, On 08/09/22 at 2315, STAT [facility] ketorolac (TORADOL) injection 15 mg 2021-0616 16:00: 00 04-06 14:50 :00 No 15mg 15 mg, Slow IV Push, ONCE, 1 dose, On 04/06/22 at 1100, [facility] ondansetron (ZOFRAN (PF)) injection 4 mg 2021-06 15:45: 00 04-06 14:50 :00 No 4mg 4 mg, Slow IV Push, ONCE, 1 dose, On 04/06/22 at 1045, [facility] oxazepam (SERAX) capsule 15 mg 12-31 06:28: 17 01-01 06:29 :00 No 15mg 15 mg, Oral, Q12H TAPER, 2 doses, First dose on Thu12/31/21 at 0130, Last dose on Thu12/31/21 at 1330, Routine [facility] multivitami n tablet 12-31 00:00: 00 Yes [id number] 1{tbl} Take 1 tablet by mouth in the morning. [facility] thiamine 100 mg tablet 12-31 00:00: 00 Yes [id number] 100mg Take 1 tablet by mouth in the morning. [facility] aspirin 81 mg chewable tablet 12-31 00:00: 00 Yes [id number] 81mg Take 1 tablet by mouth in the morning. [facility] foLIC acid 1 mg tablet 12-31 00:00: 00 01-31 04:59 :00 No [id number] 1mg Take 1 tablet by mouth in the morning for 30 days. [facility] metFORMIN 500 mg tablet 12-30 00:00: 00 Yes [id number] 500mg Take 1 tablet by mouth in the morning and 1 tablet in the evening. Take with meals. [facility] aspirin chewable tablet 81 mg 12-29 14:00: 00 Yes 81mg 81 mg, Oral, DAILY, First dose on 12/29/21 at 0900, Until Discontinu ed, Routine [facility] sulfur hexafluorid e microsphr (LUMASON) injection 5 mL 12-29 13:45: 00 12-29 13:45 :00 No [id number] 5mL 5 mL, Intravenou s, ONCE, 1 dose, On 12/29/21 at 0845, Routine
meat team member approving Restricted medication : STEFANIE GORMAN [facility] enoxaparin (LOVENOX) injection 40 mg 12-29 13:00: 00 Yes 40mg 40 mg, Subcutaneo us, Q24H, First dose on Thu12/29/21 at 0800, Until Discontinu ed, Routine [facility] Sliding Scale Insulin - Lispro (HumaLOG) + Fsbg Testing 12-29 13:00: 00 Yes Subcutaneo us, TID MEALS+HS, First dose on Thu12/29/21 at 0800, Until Discontinu ed, Routine [facility] diazePAM (VALIUM) injection 10 mg 12-29 05:30: 00 12-29 04:40 :00 No 10mg 10 mg, Intravenou s, ONCE, 1 dose, On 12/29/21 at 0030, Routine [facility] diazePAM (VALIUM) injection 10 mg 12-29 04:15: 00 12-29 03:17 :00 No 10mg 10 mg, Intravenou s, ONCE, 1 dose, On 12/28/21 at 2315, Routine [facility] diazePAM (VALIUM) injection 5 mg 12-29 03:45: 01 Yes 5mg 5 mg, Intravenou s, QIDPRN, Starting on 12/28/21 at 2245, Until Discontinu ed, Routine, Seizures, Agitation [facility] foLIC acid (FOLATE) tablet 1 mg 12-29 03:45: 00 Yes 1mg 1 mg, Oral, DAILY, First dose on 12/28/21 at 2245, Until Discontinu ed, Routine [facility] thiamine (VITAMIN B1) tablet 100 mg 12-29 03:45: 00 Yes 100mg 100 mg, Oral, DAILY, First dose (after last modificati on) on 12/28/21 at 2245, Until Discontinu ed, Routine [facility] glucagon (GLUCAGEN DIAGNOSTIC KIT) injection 1 mg 12-29 03:42: 19 Yes 1mg 1 mg, Intramuscu lar, PRN, Starting on 12/28/21 at 2242, Until Discontinu ed, JACIEL, Blood Glucose < or = 70 mg/dL and patient is unable to swallow or has mental changes. [facility] dextrose 10% (D10W) bolus [...] blood glucose is < 80 mg/dL, repeat.
[facility] LORazepam (ATIVAN) injection 1 mg 12-29 03:30: 00 12-29 02:32 :00 No 1mg 1 mg, Intravenou s, ONCE, 1 dose, On 12/28/21 at 2230, Routine
Is the medication being used for status epilepticu s? No [facility] oxazepam (SERAX) capsule 15 mg 12-29 00:28: 20 Yes 15mg 15 mg, Oral, Q4HPRN, Starting on 12/28/21 at 1928, Until Discontinu ed, Routine, Only while awake for DBP equal to or greater than 100, HR equal to or greater than 100. [facility] ondansetron (ZOFRAN (PF)) injection 4 mg 12-29 00:23: 47 Yes 4mg 4 mg, Slow IV Push, Q6HPRN, Starting on 12/28/21 at 1923, Until Discontinu ed, Routine, Nausea and Vomiting (N/V) [facility] acetaminoph en (TYLENOL) tablet 650 mg 12-29 00:23: 37 Yes 650mg 650 mg, Oral, Q6HPRN, Starting on 12/28/21 at 1923, Until Discontinu ed, Routine, Pain (scale 1-3), Temp > 38.5 C [facility] chlordiazeP OXIDE (LIBRIUM) capsule 25 mg 12-28 23:15: 00 12-28 23:24 :00 No 25mg 25 mg, Oral, ONCE, 1 dose, On 12/28/21 at 1815, JACIEL [facility] NaCl 0.9% (NS) bolus infusion 2,000 mL 12-28 22:45: 00 12-28 23:18 :00 No 2000mL at 999 mL/hr, 2,000 mL, IV Infusion, ONCE, 1 dose, On 12/28/21 at 1745, JACIEL [facility] LORazepam (ATIVAN) injection 1 mg 12-28 20:45: 00 12-28 20:49 :00 No 1mg 1 mg, Slow IV Push, ONCE, 1 dose, On 12/28/21 at 1545, STAT
Is the medication being used for status epilepticu s? No [facility] acetaminoph en (TYLENOL) 500 mg tablet 10-06 00:00: 00 Yes 500mg Take 1 Tab by mouth every 6 (six) hours as needed for Pain. [facility] Vital Signs Vital Name Observation Time Observation Value Comments S tyrese Systolic blood pressure 2023-11-05 21:00:00 106 mm[Hg] [facility] Diastolic blood pressure 2023-11-05 21:00:00 70 mm[Hg] [facility] Heart rate 2023-11-05 21:00:00 74 /min [facility] Body temperature 2023-11-05 21:00:00 36.5 Theresa [facility] Respiratory rate 2023-11-05 21:00:00 21 /min [facility] Oxygen saturation in Arterial blood by Pulse oximetry 2023-11-05 21:00:00 98 /min [facility] Body height 2023-11-05 19:59:00 160 cm [facility] Body weight 2023-11-05 19:59:00 63.504 kg [facility] BMI 2023-11-05 19:59:00 24.80 kg/m2 [facility] Systolic blood pressure 2022-11-11 20:31:31 116 mm[Hg] [facility] Diastolic blood pressure 2022-11-11 20:31:31 77 mm[Hg] [facility] Heart rate 2022-11-11 20:31:31 84 /min [facility] Respiratory rate 2022-11-11 20:31:31 12 /min [facility] Oxygen saturation in Arterial blood by Pulse oximetry 2022-11-11 20:31:31 90 /min [facility] Body temperature 2022-11-11 18:49:00 37.11 Theresa [facility] Body height 2022-11-11 18:49:00 160 cm [facility] Body weight 2022-11-11 18:49:00 68.04 kg [facility] BMI 2022-11-11 18:49:00 26.57 kg/m2 [facility] Body temperature 2022-08-11 14:00:00 36.5 Theresa [facility] Systolic blood pressure 2022-08-11 10:00:00 116 mm[Hg] [facility] Diastolic blood pressure 2022-08-11 10:00:00 71 mm[Hg] [facility] Heart rate 2022-08-11 10:00:00 70 /min Unive [facility] Respiratory rate 2022-08-11 10:00:00 16 /min [facility] Body weight 2022-08-11 10:00:00 65.499 kg [facility] BMI 2022-08-11 10:00:00 25.58 kg/m2 [facility] Oxygen saturation in Arterial blood by Pulse oximetry 2022-08-11 10:00:00 100 /min [facility] Body height 2022-08-10 22:12:00 160 cm [facility] Systolic blood pressure 2022-04-06 16:00:00 125 mm[Hg] [facility] Diastolic blood pressure 2022-04-06 16:00:00 75 mm[Hg] [facility] Heart rate 2022-04-06 16:00:00 87 /min [facility] Respiratory rate 2022-04-06 16:00:00 22 /min [facility] Oxygen saturation in Arterial blood by Pulse oximetry 2022-04-06 16:00:00 98 /min [facility] Body temperature 2022-04-06 14:41:00 37 Theresa [facility] Body height 2022-04-06 14:41:00 160 cm [facility] Body weight 2022-04-06 14:41:00 63.504 kg [facility] BMI 2022-04-06 14:41:00 24.80 kg/m2 [facility] Systolic blood pressure 2022-01-20 02:27:00 121 mm[Hg] [facility] Diastolic blood pressure 2022-01-20 02:27:00 75 mm[Hg] [facility] Heart rate 2022-01-20 02:27:00 79 /min Unive [facility] Respiratory rate 2022-01-20 02:27:00 12 /min [facility] Oxygen saturation in Arterial blood by Pulse oximetry 2022-01-20 02:27:00 98 /min [facility] Body temperature 2022-01-19 22:19:00 36.44 Theresa [facility] Body weight 2022-01-19 22:19:00 60.328 kg [facility] BMI 2022-01-19 22:19:00 23.56 kg/m2 [facility] Systolic blood pressure 2021-12-30 20:52:00 134 mm[Hg] [facility] Diastolic blood pressure 2021-12-30 20:52:00 76 mm[Hg] [facility] Heart rate 2021-12-30 20:52:00 67 /min [facility] Body temperature 2021-12-30 20:26:00 36.67 Theresa [facility] Oxygen saturation in Arterial blood by Pulse oximetry 2021-12-30 20:26:00 99 /min [facility] Respiratory rate 2021-12-30 16:21:00 18 /min [facility] Body weight 2021-12-30 08:27:00 60.464 kg [facility] BMI 2021-12-30 08:27:00 23.61 kg/m2 [facility] Body height 2021-12-29 01:29:00 160 cm [facility] Procedures Procedure Date / Time Performed Performing Clinician Source XR CHEST 1 VW 2023-11-05 20:09:00 Sulaiman Hawkins [facility] LIPASE 2023-11-05 20:01:00 Sulaiman Hawkins [facility] MAGNESIUM 2023-11-05 20:01:00 Sulaiman Hawkins [facility] TROPONIN I 2023-11-05 20:01:00 Singer Sulaiman [facility] COMP. METABOLIC PANEL ([id number]) 2023-11-05 20:01:00 Singer [facility] CBC WITH DIFF 2023-11-05 20:01:00 Singer [facility] N-TERMINAL PRO-BNP 2023-11-05 20:01:00 Singer [facility] MAGNESIUM 2022-11-11 19:05:00 Jessica [facility] BASIC METABOLIC PANEL (NA, K, CL, CO2, GLUCOSE, BUN, CREATININE, CA) 2022-11-11 19:05:00 Jessica [facility] ETHANOL 2022-11-11 19:05:00 Jessica [facility] CBC WITH DIFF 2022-11-11 19:05:00 Jessica [facility] POCT GLUCOSE (AUTOMATED) 2022-08-11 13:36:00 Arvind Prado [facility] PHOSPHORUS 2022-08-11 10:35:[facility] 2022-08-11 10:35:[address] [facility] AMMONIA, PLASMA 2022-08-11 10:35:00 [facility]. METABOLIC PANEL ([id number]) 2022-08-11 10:35:00 Jessica Prado [facility] CBC WITH DIFF 2022-08-11 10:35:00 Oswald Murphy [facility] POCT GLUCOSE (AUTOMATED) 2022-08-11 02:15:00 Arvind Prado [facility] POCT GLUCOSE (AUTOMATED) 2022-08-10 23:10:00 Arvind Pardo [facility] POCT GLUCOSE (AUTOMATED) 2022-08-10 18:20:00 Arvind Prado [facility] POCT GLUCOSE (AUTOMATED) 2022-08-10 14:11:00 Arvind Prado [facility] POCT GLUCOSE (AUTOMATED) 2022-08-10 10:59:00 Gopal Driscoll [facility] COVID-19 (ID NOW RAPID TESTING) 2022-08-10 07:17:00 Rayray Driscoll [facility] LAB ONLY COVID INTERPRETATION 2022-08-10 07:17:00 Rayray Driscoll [facility] HB ECG ROUTINE & RHYTHM STRIP 2022-08-10 06:03:48 Rayray Driscoll [facility] URINALYSIS 2022-08-10 05:46:00 [facility] URINE DRUG (IMMUNOASSAY) - COMPREHENSIVE DRUG SCREEN W/O REFLEX 2022-08-10 05:45:00 Rayray Driscoll [facility] CREATINE KINASE 2022-08-10 05:16:00 [facility] 2022-08-10 05:16:00 [facility]coll [facility] MAGNESIUM 2022-08-10 05:16:00 Rayray Driscoll [facility] TROPONIN I 2022-08-10 05:16:00 Rayray Driscoll [facility] COMP. METABOLIC PANEL ([id number]) 2022-08-10 05:16:00 Rayray Driscoll [facility] ETHANOL 2022-08-10 05:16:00 Rayray Driscoll [facility] CBC WITH DIFF 2022-08-10 05:16:00 Rayray Driscoll [facility] N-TERMINAL PRO-BNP 2022-08-10 05:16:00 Rayray Driscoll [facility] CRITICAL CARE 2022-08-10 04:52:00 Rayray Driscoll [facility] XR CHEST 1 VW 2022-04-06 14:51:50 [facility] 2022-04-06 14:42:00 Diya Chowdhury [facility] TROPONIN I 2022-04-06 14:42:00 Diya Chowdhury [facility] COMP. METABOLIC PANEL ([id number]) 2022-04-06 14:42:00 Diya Chowdhury [facility] CBC WITH DIFF 2022-04-06 14:42:00 [facility] / INR 2022-04-06 14:42:00 Diya Chowdhury [facility] ACTIVATED PARTIAL THRMPLAS NELDA 2022-04-06 14:42:00 Diya Chowdhury [facility] LACTIC ACID WHOLE BLOOD 2022-01-20 00:22:00 Leticia Baldwin [facility] URINE DRUG (IMMUNOASSAY) - COMPREHENSIVE DRUG SCREEN 2022-01-19 23:10:00 Leticia Baldwin [facility] URINALYSIS 2022-01-19 23:10:00 Leticia Baldwin [facility] TROPONIN I 2022-01-19 23:00:00 Leticia Baldwin [facility] COMP. METABOLIC PANEL ([id number]) 2022-01-19 23:00:00 Leticia Baldwin [facility] LITHIUM 2022-01-19 23:00:00 Leticia Baldwin [facility] ETHANOL 2022-01-19 23:00:00 Leticia Baldwin [facility] CBC WITH DIFF 2022-01-19 23:00:00 Leticia Baldwin [facility] COVID-19 (ID NOW RAPID TESTING) 2022-01-19 23:00:00 Leticia Baldwin [facility] CT HEAD WO CONTRAST 2022-01-19 22:49:00 Leticia Baldwin [facility] XR CHEST 1 VW 2022-01-19 22:41:00 Leticia Baldwin [facility] POCT GLUCOSE (AUTOMATED) 2022-01-19 22:25:00 Leticia Baldwin [facility] POCT GLUCOSE (AUTOMATED) 2021-12-30 21:55:00 Arvind Prado [facility] POCT GLUCOSE (AUTOMATED) 2021-12-30 16:21:00 Arvind Prado [facility] POCT GLUCOSE (AUTOMATED) 2021-12-30 12:30:00 Arvind Prado [facility] HEPATIC FUNCTION PANEL (93372) (ALB,T.PRO,BILI T,BU/BC,ALT,AST,ALK PHOS) 2021-12-30 09:28:00 Maira Gaitan [facility] POCT GLUCOSE (AUTOMATED) 2021-12-30 02:11:00 Arvind Prado [facility] POCT GLUCOSE (AUTOMATED) 2021-12-29 21:41:00 Arvind Prado [facility] POCT GLUCOSE (AUTOMATED) 2021-12-29 16:37:00 Arvind Prado gregoria [facility] TRANSTHORACIC ECHO (TTE) COMPLETE W/ CONTRAST 2021-12-29 13:05:00 Jessica Prado [facility] POCT GLUCOSE (AUTOMATED) 2021-12-29 12:41:00 Arvind Prado [facility] TROPONIN I 2021-12-29 09:42:[address] [facility] TROPONIN I 2021-12-29 04:55:00 Jessica Prado [facility] CT HEAD WO CONTRAST 2021-12-28 21:18:22 Poppy Renteria [facility] AMMONIA, PLASMA 2021-12-28 21:00:00 Pia Renteria [facility] COVID-19 (ID NOW RAPID TESTING) 2021-12-28 20:42:00 Pia Renteria [facility] LAB ONLY COVID INTERPRETATION 2021-12-28 20:42:00 Pia Renteria [facility] URINE DRUG (IMMUNOASSAY) - COMPREHENSIVE DRUG SCREEN W/O REFLEX 2021-12-28 20:42:00 Pia Renteria [facility] URINALYSIS 2021-12-28 20:40:00 Pia Renteria [facility] N-TERMINAL PRO-BNP 2021-12-28 20:40:00 Corina Renteria [facility] TROPONIN I 2021-12-28 20:40:00 Pia Renteria [facility] THYROID STIMULATING HORMONE 2021-12-28 20:40:00 Jessica Prado [facility] COMP. METABOLIC PANEL (69558) 2021-12-28 20:40:00 Pia Renteria [facility] LIPID PANEL (07716)(TOTAL CHOLESTEROL, TRIGLYCERIDES, HDL) 2021-12-28 20:40:00 Demetrius Langford [facility] ETHANOL 2021-12-28 20:40:00 Demetrius Langford [facility] CBC WITH DIFF 2021-12-28 20:40:00 Pia Renteria [facility] GLYCOSYLATED HEMOGLOBIN (A1C) 2021-12-28 20:40:00 Jessica Prado [facility] PROTHROMBIN TIME / INR 2021-12-28 20:40:00 Lesly Renteria [facility] XR CHEST 1 VW 2021-12-28 20:16:00 Pia Renteria [facility] HB ECG ROUTINE & RHYTHM STRIP 2021-12-28 20:04:59 Pia Renteria [facility] Encounters Start Date/Time End Date/Time Encounter Type Admission Type Attending [facility] Facility Care Department Encounter ID Source 2021-09-17 16:45:00 Inpatient [facility] [id number] 2020-06-06 16:07:00 Inpatient [facility] [id number] 2020-06-06 06:20:00 Inpatient [facility] [id number] 2020-06-05 19:35:00 Inpatient [facility] [id number] [facility] 2020-05-23 19:53:00 Inpatient [facility] [id number] 2020-05-23 19:53:00 Inpatient [facility] [id number] [facility] 2023-11-05 14:54:00 2023-11-05 16:27:00 Emergency Sulaiman Hawkins [facility] [id number] 350.1.13.10 4.2.7.2.686 [id number] [facility] 2022-11-11 13:50:00 2022-11-11 16:07:00 Emergency X HEMANT KLEIN [facility] ERT [id number] [facility] 2022-11-11 13:50:00 2022-11-11 16:07:00 Emergency Hemant Klein [facility] [id number] 350.1.13.10 4.2.7.2.686 [id number] [facility] 2022-10-14 20:59:00 2022-10-14 20:59:00 Emergency [facility] [id number] 2022-10-14 20:59:00 2022-10-14 20:59:00 Emergency Emergency Pan Pinto [facility] [id number] [facility] 2022-08-09 22:59:00 2022-08-11 13:02:00 Outpatient X JESSICA RPADO [facility] MARGO [id number] [facility] 2022-08-09 22:59:00 2022-08-11 13:02:00 Emergency Rayray Driscoll Jelani Edionwe [facility] 1.2.840.114 350.1.13.10 4.2.7.2.686 [id number] [facility] 2022-04-06 09:38:00 2022-04-06 11:42:00 Emergency X DIYA CHOWDHURY [facility] ERT [id number] [facility] 2022-04-06 09:38:00 2022-04-06 11:42:00 Emergency EnrikemarianneDiya nelson [facility] 1.2.840.114 350.1.13.10 4.2.7.2.686 [id number] [facility] 2022-03-07 12:38:00 2022-03-07 12:38:00 Emergency [facility] [id number] [address] [place] [address] 2022-03-07 12:38:00 2022-03-07 12:38:00 Emergency Emergency Fidel Cuellar [facility] [id number] [facility] 2022-01-19 17:18:00 2022-01-19 22:00:00 Emergency X DIRK YARBROUGH [facility] ERT [id number] [facility] 2022-01-19 17:18:00 2022-01-19 22:00:00 Emergency NicolasaLeticia vega Julio C [facility] 1.2.840.114 350.1.13.10 4.2.7.2.686 [id number] [facility] 2021-12-31 00:00:00 2021-12-31 00:00:00 Transition of Care PortilloFaye martinMarlon MASSIEL NAVARRO 1.2.840.114 350.1.13.10 4.2.7.2.686 [id number] [facility] 2021-12-28 14:53:00 2021-12-30 17:42:00 Inpatient X JESSICA PRADO [facility] [id number] [facility] 2021-12-28 14:53:00 2021-12-30 17:42:00 Hospital Encounter Pia Renteria Jelani [facility] 1.2.840.114 350.1.13.10 4.2.7.2.686 [id number] [facility] 2021-09-17 16:47:00 2021-09-17 16:47:00 Emergency [facility] [id number] [facility] 2020-06-06 16:07:00 2020-06-06 16:07:00 Emergency [facility] [id number] [facility] Results Test Description Test Time Test [...] CONCLUSIONS: No signs of acute cardiopulmonary disease. 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 The reference range was not used to interpret this result as normal/abnormal. RBC (test code = 789-8) 4.98 See_Comment [Automated [employer]] The system which generated this result transmitted [...] 33.9 g/dL 31.2-35.0 RDW-SD (test code = 79243-7) 46.0 fL 38.5-51.6 RDW-CV (test code = 788-0) 13.5 % 12.1-15.4 PLT (test code = 777-3) 237 See_Comment [Automated messa ge] The system which generated this result transmitted reference range: 150 - 328 10*3/?L. The reference range was not used to interpret this result as normal/abnormal. MPV (test code = 58195-7) 8.9 fL 9.8-13.0 L NRBC/100 WBC (test code = 7519240757) 0.0 See_Comment [Automated me ssage] The system which generated this result transmitted reference range: 0.0 - 10.0 /100 WBCs. The reference range was not used to interpret this result as normal/abnormal. NRBC x10^3 (test code = 4349091218) See_Comment [Automated messa ge] The system which generated this result transmitted reference range: 10*3/?L. The reference range was not used to interpret this result as normal/abnormal. GRAN MAT (NEUT) % (test code = 770-8) 71.2 % IMM GRAN % (test code = 3969695092) 0.30 % LYMPH % (test code = 736-9) 18.2 % MONO % (test code = 5905-5) 8.4 % EOS % (test code = 713-8) 1.0 % BASO % (test code = 706-2) 0.9 % GRAN MAT x10^3(ANC) (test code = 7575538132) 4.86 10*3/uL 1.99-6.95 IMM GRAN x10^3 (test code = 4147996956) 0.00-0.06 LYMPH x10^3 (test code = 731-0) 1.24 10*3/uL 1.09-3.23 MONO x10^3 (test code = 742-7) 0.57 10*3/uL 0.36-1.02 EOS x10^3 (test code = 711-2) 0.07 10*3/uL 0.06-0.53 BASO x10^3 (test code = 704-7) 0.06 10*3/uL 0.01-0.09 Lab Interpretation (test code = 31875-7) Abnormal [facility], Urinalysis Rflx Cult/Kirmj6008-11-66 22:20:00* Test Item Value Reference Range Interpretation Comme nts Color,Urine (test code = UCOL) Yellow Yellow Clarity,Urine (test code = UCLAR) Clear Clear Ph, Urine (test code = UPH) 7.0 5.0-9.0 N Specific [place],Urine (test code = USG) 1.020 1.005-1.030 N [...] code = ULEU) Negative mg/dL Negative Drug Screen,Egkxw3244-82-08 22:20:00* Test Item Value Reference Range Interpretation [...] UPROP) Negative Negative Complete Blood Count Auto Zxmr7688-34-31 21:21:00* Test Item Value Reference Range Interpretation [...] code = NRBCP) 0 % Comprehensive Metabolic Nrkai7919-09-63 21:21:00* Test Item Value Reference Range Interpretation [...] a race coefficient. Additional information canbe found at:[email or web address]_[email or web address] 5.[email or web address] ([email or web address]) [Automated message] The system [...] = ALP) 134 U/L 46-116 H Ethanol Ryxkf3979-98-48 21:21:00* Test Item Value Reference Range Interpretation Comme nts Ethanol (test code = ETOH) < 3 mg/dL The pharmacologi yudy response to blood alcohol levels mayvary from individual to individual. The fatal concentrationhas been reported to be >400mg/dL. POCT GLUCOSE (AUTOMATED)2022-08-11 13:40:35* Test Item Value Reference Range Interpretation Comme nts POCT GLU (test code = 1241054145) 121 mg/dL 70-110 H Lab Interpretation (test cod e = 84168-7) Abnormal [facility] GLUCOSE (AUTOMATED)2022-08-11 02:18:58* Test Item Value Reference Range Interpretation Comme nts POCT GLU (test code = 5527911168) 183 mg/dL 70-110 H Lab Interpretation (test cod e = 30587-9) Abnormal [facility] GLUCOSE (AUTOMATED)2022-08-10 23:16:11* Test Item Value Reference Range Interpretation Comme nts POCT GLU (test code = 3875665952) 176 mg/dL 70-110 H Lab Interpretation (test cod e = 48809-2) Abnormal [facility] GLUCOSE (AUTOMATED)2022-08-10 18:22:51* Test Item Value Reference Range Interpretation Comme nts POCT GLU (test code = 0824949262) 165 mg/dL 70-110 H Lab Interpretation (test cod e = 36896-3) Abnormal [facility] GLUCOSE (AUTOMATED)2022-08-10 14:18:05* Test Item Value Reference Range Interpretation Comme nts POCT GLU (test code = 2729492119) 138 mg/dL 70-110 H Lab Interpretation (test cod e = 33027-0) Abnormal [facility] GLUCOSE (AUTOMATED)2022-08-10 11:01:21* Test Item Value Reference Range Interpretation Comme nts POCT GLU (test code = 1402269924) 143 mg/dL 70-110 H Lab Interpretation (test cod e = 86509-4) Abnormal [facility] A8584-52-06 06:51:18* Test Item Value Reference Range Interpretation Comme nts TROPONIN I (test code = 5571248117) 0.008 ng/mL <=0.034 JUAN ALBERTO (test code [...] of biotin. Lab Interpretation (test code = 57325-8) Normal [facility]N-[facility]MINAL TNW-[id number] 06:47:37* Test Item Value Reference Range Interpretation Comme nts NT-proBNP (test code = 5939898661) 37 pg/mL <=125 JUAN ALBERTO (test code = JUAN ALBERTO) Biotin has been reported to cause a negative bias, interpret results relative to patient's use of biotin. 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 METABOLIC PANEL (47814)2022-08-10 06:19:15* Test Item Value Reference Range Interpretation Comme nts NA (test code = 6102739496) 135 mmol/L 135-145 K (test code = 1628773144) 4.3 mmol/L 3.5-5.0 CL (test code = 2293566266) 98 mmol/L 98-108 CO2 TOTAL (test code = 0264963463) 30 mmol/L 23-31 AGAP (test code = 6980721632) 7 2-16 BUN (test code = 8334527989) 11 mg/dL 7-23 GLUCOSE (test code = 7074425325) 153 mg/dL 70-110 H CREATININE (test code = 0419394773) 0.77 mg/dL 0.60-1.25 TOTAL BILI (test code = 9895959996) 0.9 mg/dL 0.1-1.1 CALCIUM (test code = 2031402882) 10.0 mg/dL 8.6-10.6 T PROTEIN (test code = 4483153505) 7.7 g/dL 6.3-8.2 ALBUMIN (test code = 7344082038) 4.6 g/dL 3.5-5.0 ALK PHOS (test code = 7892204142) 92 U/L 34-122 ALTv (test code = 1742-6) 35 U/L 5-50 AST(SGOT) (test code = 1528784843) 42 U/L 13-40 H eGFR (test code = 1843983783) 106.1 mL/min/1.73m2 JUAN ALBERTO (test code = [...] imaging tests). Lab Interpretation (test code = 80917-5) [facility] 06:19:15* Test Item Value Reference Range Interpretation Comme nts MAGNESIUM (test code = 0992089715) 2.2 mg/dL 1.7-2.4 Lab Interpretation (test cod e = 14154-7) Normal [facility]ASE2023-[facility]-19 06:18:55* Test Item Value Reference Range Interpretation Comme nts LIPASE (test code = 1294212358) 18 U/L 0-220 Lab Interpretation (test cod e = 46401-5) Normal [facility] HospitalCREATINE HWXEBM0916-95-74 06:18:55* Test Item Value Reference Range Interpretation Comme nts CK (test code = 9939780876) 174 U/L 33-194 Lab Interpretation (test cod e = 31976-3) Normal [facility] WITH [id number] 06:02:35* Test Item Value Reference Range Interpretation [...] 32.4 g/dL 31.2-35.0 RDW-SD (test code = 28239-0) 50.2 fL 38.5-51.6 RDW-CV (test code = 788-0) 14.3 % 12.1-15.4 PLT (test code = 777-3) 241 See_Comment [Automated messa ge] The system which generated this result transmitted reference range: 150 - 328 10*3/?L. The reference range was not used to interpret this result as normal/abnormal. MPV (test code = 98997-5) 8.6 fL 9.8-13.0 L NRBC/100 WBC (test code = 7352704094) 0.0 See_Comment [Automated me ssage] The system which generated this result transmitted reference range: 0.0 - 10.0 /100 WBCs. The reference range was not used to interpret this result as normal/abnormal. NRBC x10^3 (test code = 9154192164) See_Comment [Automated messa ge] The system which generated this result transmitted reference range: 10*3/?L. The reference range was not used to interpret this result as normal/abnormal. GRAN MAT (NEUT) % (test code = 770-8) 63.9 % IMM GRAN % (test code = 6627394885) 0.50 % LYMPH % (test code = 736-9) 17.6 % MONO % (test code = 5905-5) 16.5 % EOS % (test code = 713-8) 0.7 % BASO % (test code = 706-2) 0.8 % GRAN MAT x10^3(ANC) (test code = 9585974629) 4.79 10*3/uL 1.99-6.95 IMM GRAN x10^3 (test code = 8650372389) 0.04 10*3/uL 0.00-0.06 LYMPH x10^3 (test code = 731-0) 1.32 10*3/uL 1.09-3.23 MONO x10^3 (test code = 742-7) 1.24 10*3/uL 0.36-1.02 H EOS x10^3 (test code = 711-2) 0.05 10*3/uL 0.06-0.53 L BASO x10^3 (test code = 704-7) 0.06 10*3/uL 0.01-0.09 Lab Interpretation (test code = 65951-6) Abnormal [facility] HospitalGERMANIA J5206-02-21 15:15:32* Test Item Value Reference Range Interpretation Comments TROPONIN I (test code = 9406274415) 0.007 ng/mL See_Comment [Automated message] The system [...] of biotin. Lab Interpretation (test code = 32923-8) Normal [facility] HospitalaPTT2022-10-16 15:08:29* Test Item Value Reference Range Interpretation Comme [facility] APTT Patient (test code = 3173-2) See_Comment [Automated message] The system which generated this result transmitted reference range: 23 - 38 Seconds. The reference range was not used to interpret this result as normal/abnormal. JUAN ALBERTO (test code = JUAN ALBERTO) The [facility] patient population mean normal value for aPTT is 30 seconds. Lab Interpretation (test code = 35139-8) Normal [facility] HospitalPROTHROMBIN TIME / [id number] 15:06:28* Test Item Value Reference Range Interpretation [...] the indications. Lab Interpretation (test code = 89064-5) Normal [facility] HospitalCOMP. METABOLIC PANEL (09087)2022-04-06 15:03:31* Test Item Value Reference Range Interpretation Comme [facility] NA (test code = 3603820331) 136 mmol/L 135-145 K (test code = 1311534208) 5.0 mmol/L 3.5-5 CL (test code = 6498081044) 104 mmol/L 98-108 CO2 TOTAL (test code = 2381029756) 21 mmol/L 23-31 L AGAP (test code = 5538473000) 2-16 BUN (test code = 2563347462) 11 mg/dL 7-23 GLUCOSE (test code = 5756361753) 162 mg/dL 70-110 H CREATININE (test code = 9553876320) 0.52 mg/dL 0.6-1.25 L TOTAL BILI (test code = 6089356705) 1.0 mg/dL 0.1-1.1 CALCIUM (test code = 3938472332) 9.3 mg/dL 8.6-10.6 T PROTEIN (test code = 2900362644) 7.4 g/dL 6.3-8.2 ALBUMIN (test code = 6158172550) 4.4 g/dL 3.5-5 ALK PHOS (test code = 4160973547) 134 U/L 34-122 H ALTv (test code = 1742-6) 17 U/L 5-50 AST(SGOT) (test code = 9701147734) 38 U/L 13-40 eGFR (test code = 2790574638) mL/min/1.73m2 JUAN ALBERTO (test code = JUAN [...] imaging tests). Lab Interpretation (test code = 19471-1) Abnormal [facility] HospitalLIP[facility], [id number] 15:03:31* Test Item Value Reference Range Interpretation Comme nts LIPASE (test code = 5889817912) 29 U/L 0-220 Lab Interpretation (test cod e = 63654-2) Normal [facility] HospitalCBC WITH DGCV4261-53-12 14:51:49* Test Item Value Reference Range Interpretation Comme nts WBC (test code = 6690-2) See_Comment [Automated [employer]] The system which generated this result transmitted reference range: 4.20 - 10.70 10*3/?L. The reference range was not used to interpret this result as normal/abnormal. RBC (test code = 789-8) See_Comment [Automated [employer]] The system which generated this result transmitted [...] 34.0 g/dL 31.2-35 RDW-SD (test code = 77524-1) 45.9 fL 38.5-51.6 RDW-CV (test code = 788-0) 13.3 % 12.1-15.4 PLT (test code = 777-3) See_Comment [Automated [employer]] The system which generated this result transmitted reference range: 150 - 328 10*3/?L. The reference range was not used to interpret this result as normal/abnormal. MPV (test code = 99794-9) 8.4 fL 9.8-13 L NRBC/100 WBC (test code = 6339223813) See_Comment [Automated me ssage] The system which generated this result transmitted reference range: 0.0 - 10.0 /100 WBCs. The reference range was not used to interpret this result as normal/abnormal. NRBC x10^3 (test code = 9358428851) See_Comment [Automated messa ge] The system which generated this result transmitted reference range: 10*3/?L. The reference range was not used to interpret this result as normal/abnormal. GRAN MAT (NEUT) % (test code = 770-8) 63.0 % IMM GRAN % (test code = 4909482055) 0.50 % LYMPH % (test code = 736-9) 25.2 % MONO % (test code = 5905-5) 9.8 % EOS % (test code = 713-8) 0.3 % BASO % (test code = 706-2) 1.2 % GRAN MAT x10^3(ANC) (test code = 3873548100) 3.73 10*3/uL 1.99-6.95 IMM GRAN x10^3 (test code = 1434997458) 0.03 10*3/uL 0-0.06 LYMPH x10^3 (test code = 731-0) 1.49 10*3/uL 1.09-3.23 MONO x10^3 (test code = 742-7) 0.58 10*3/uL 0.36-1.02 EOS x10^3 (test code = 711-2) 0.06-0.53 L BASO x10^3 (test code = 704-7) 0.07 10*3/uL 0.01-0.09 Lab Interpretation (test code = 55073-7) Abnormal [facility], Urinalysis Rflx Cult/Bnurj7841-57-11 13:53:00* Test Item Value Reference Range Interpretation Comme nts Color,Urine (test code = UCOL) Yellow Yellow Clarity,Urine (test code = UCLAR) Cloudy Clear A Ph, Urine (test code = UPH) 7.5 5.0-9.0 N Specific [place],Urine (test code = USG) 1.025 1.005-1.030 N [...] = ULEU) Negative mg/dL Negative UF REFLEXDrug Screen,Ekqce4662-67-34 13:53:00* Test Item Value Reference Range Interpretation [...] UPROP) Negative Negative Complete Blood Count Auto Tmny2615-70-13 12:58:00* Test Item Value Reference Range Interpretation [...] = NRBCP) 0 % Coronavirus PCR, COVID19 Laqyl6787-53-65 12:58:00* Test Item Value Reference Range Interpretation Comme nts Coronavirus PCR, COVID19 Rapid (test code = SARSCOV2) Coronavirus PCR, COVID19 Rapid (test code = YBWBJYJ19.1) Reference Range: Negative SARS-CoV-2 PCR Result: (test code = SARS-CoV-2 PCR Result:) Negative by RT-PCR COVID-19 Status: AsymptomaticComprehensive Metabolic Apula3062-84-08 12:58:00* Test Item Value Reference Range Interpretation [...] = ALP) 144 U/L 46-116 H Ethanol Qfuxr8048-81-10 12:58:00* Test Item Value Reference Range Interpretation Comme nts Ethanol (test code = ETOH) < 3 mg/dL The pharmacologi yudy response to blood alcohol levels mayvary from individual to individual. The fatal concentrationhas been reported to be >400mg/dL. HCXBSCX5806-70-92 01:47:56* Test Item Value Reference Range Interpretation Comme nts [place] (test code = 3258326290) 0.7 mmol/L 0.6-1.2 JUAN ALBERTO (test code = JUAN ALBERTO) Toxic Range: ? Greater than 1.2 mmol/L Lab Interpretation (test code = 61235-7) Normal [facility]TR[facility] W5105-67-56 00:26:53* Test Item Value Reference Range Interpretation Comments TROPONIN I (test code = 5353685913) 0.002 ng/mL See_Comment [Automated message] The system [...] of biotin. 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 Joseph Medical CenterCOMP. METABOLIC PANEL (39507)2022-01-20 00:16:16* Test Item Value Reference Range Interpretation Comme nts NA (test code = 4205135347) 137 mmol/L 135-145 K (test code = 5348545798) 4.5 mmol/L 3.5-5 CL (test code = 2086390444) 103 mmol/L 98-108 CO2 TOTAL (test code = 4564896984) 26 mmol/L 23-31 AGAP (test code = 7568375848) 2-16 BUN (test code = 1288478655) 10 mg/dL 7-23 GLUCOSE (test code = 5342963071) 121 mg/dL 70-110 H CREATININE (test code = 4199457018) 0.65 mg/dL 0.6-1.25 TOTAL BILI (test code = 2626068671) 0.8 mg/dL 0.1-1.1 CALCIUM (test code = 8029681324) 11.4 mg/dL 8.6-10.6 H T PROTEIN (test code = 8752153506) 7.2 g/dL 6.3-8.2 ALBUMIN (test code = 9995691981) 4.6 g/dL 3.5-5 ALK PHOS (test code = 3974819045) 112 U/L 34-122 ALTv (test code = 1742-6) 19 U/L 5-50 AST(SGOT) (test code = 7431294334) 26 U/L 13-40 eGFR (test code = 7895761670) mL/min/1.73m2 JUAN ALBERTO (test code = JUAN [...] imaging tests). Lab Interpretation (test code = 59811-0) Abnormal [facility] WITH [id number] 23:43:54* Test Item Value Reference Range Interpretation Comme nts WBC (test code = 6690-2) See_Comment [Automated [employer]] The system which generated this result transmitted reference range: 4.20 - 10.70 10*3/?L. The reference range was not used to interpret this result as normal/abnormal. RBC (test code = 789-8) See_Comment [Automated [employer]] The system which generated this result transmitted [...] 34.4 g/dL 31.2-35 RDW-SD (test code = 02033-5) 44.0 fL 38.5-51.6 RDW-CV (test code = 788-0) 12.6 % 12.1-15.4 PLT (test code = 777-3) See_Comment [Automated [employer]] The system which generated this result transmitted reference range: 150 - 328 10*3/?L. The reference range was not used to interpret this result as normal/abnormal. MPV (test code = 08826-3) 9.1 fL 9.8-13 L NRBC/100 WBC (test code = 7327839169) See_Comment [Automated me ssage] The system which generated this result transmitted reference range: 0.0 - 10.0 /100 WBCs. The reference range was not used to interpret this result as normal/abnormal. NRBC x10^3 (test code = [id number]) See_Comment [Automated messa ge] The system which generated this result transmitted reference range: 10*3/?L. The reference range was not used to interpret this result as normal/abnormal. GRAN MAT (NEUT) % (test code = 770-8) 69.8 % IMM GRAN % (test code = 0773539071) 0.40 % LYMPH % (test code = 736-9) 18.0 % MONO % (test code = 5905-5) 10.9 % EOS % (test code = 713-8) 0.1 % BASO % (test code = 706-2) 0.8 % GRAN MAT x10^3(ANC) (test code = 0366299961) 5.58 10*3/uL 1.99-6.95 IMM GRAN x10^3 (test code = 6070568808) 0.03 10*3/uL 0-0.06 LYMPH x10^3 (test code = 731-0) 1.44 10*3/uL 1.09-3.23 MONO x10^3 (test code = 742-7) 0.87 10*3/uL 0.36-1.02 EOS x10^3 (test code = 711-2) 0.06-0.53 L BASO x10^3 (test code = 704-7) 0.06 10*3/uL 0.01-0.09 Lab Interpretation (test code = 99193-9) Abnormal [facility] GLUCOSE (AUTOMATED)2022-01-19 22:27:41* Test Item Value Reference Range Interpretation Comme nts POCT GLU (test code = 8703271077) 123 mg/dL 70-110 H Lab Interpretation (test cod e = 09608-6) Abnormal [facility] GLUCOSE (AUTOMATED)2021-12-30 22:08:16* Test Item Value Reference Range Interpretation Comme nts POCT GLU (test code = 4093326309) 167 mg/dL 70-110 H Lab Interpretation (test cod e = 24539-9) Abnormal [facility] GLUCOSE (AUTOMATED)2021-12-30 16:50:40* Test Item Value Reference Range Interpretation Comme nts POCT GLU (test code = 0498512670) 154 mg/dL 70-110 H Lab Interpretation (test cod e = 09845-8) Abnormal [facility] GLUCOSE (AUTOMATED)2021-12-30 12:38:43* Test Item Value Reference Range Interpretation Comme nts POCT GLU (test code = 2908781513) 164 mg/dL 70-110 H Lab Interpretation (test cod e = 24754-9) Abnormal [facility] GLUCOSE (AUTOMATED)2021-12-30 02:14:58* Test Item Value Reference Range Interpretation Comme nts POCT GLU (test code = 8315334362) 220 mg/dL 70-110 H Lab Interpretation (test cod e = 50831-1) Abnormal [facility] GLUCOSE (AUTOMATED)2021-12-29 21:50:02* Test Item Value Reference Range Interpretation Comme nts POCT GLU (test code = 5852768379) 191 mg/dL 70-110 H Lab Interpretation (test cod e = 80581-4) Abnormal [facility] GLUCOSE (AUTOMATED)2021-12-29 20:15:01* Test Item Value Reference Range Interpretation Comme nts POCT GLU (test code = 3467861867) 163 mg/dL 70-110 H Lab Interpretation (test cod e = 59547-9) [facility]normal [facility]2021-12-29 19:12:22* Test Item Value Reference Range Interpretation Comme nts Height (test code = 3398447538) in Weight (test code = 1695396226) lbs Systolic BP (test code = 8897124470) mmHg Diastolic BP (test code = 9244725309) mmHg Heart Rate (test code = 3828129864) bpm BSA (test code = 4301683058) 1.62 m2 Ao root annulus (test code = 4591608702) 2.45 cm Ao root diam (test code = 0807366095) 2.45 cm Aortic root (test code = 1508608804) 2.45 cm ACS (test code = 5178574747) 1.66 cm LA size (test code = 0609568013) 3.2 cm LVOT diameter (test code = 1653753643) 1.95 cm LVIDD (test code = 9571584924) 3.60 cm IVS (test code = 2921319365) 0.94 cm Interventricular Septum Diastolic Thickness by 2D (test code = 4938512) 0.94 cm LVPWD (test code = 5778494211) 0.80 cm PW (test code = 0225344454) 0.80 cm 0.6-1.1 EF(Teich) (test code = 7615285576) 52.80 % LVIDS (test code = 2234308599) 2.60 cm FS (test code = 7165068096) 27 % EF - 2D (test code = 65459564) 52.80 % LAV(MOD-sp4) (test code = 7662586166) 16.80 mL MV Peak E Jovany (test code = 7225292989) 46.1 cm/s E wave decelartion time (test code = 0488857855) 0.31 s MV Peak A Jovany (test code = 2795309299) 58.1 cm/s E/A ratio (test code = 1195053659) ratio MV E/e' septal (test code = 0225631874) 5.7 cm/s Tapse (test code = 8177317318) 1.60 cm LVOT stroke volume (test code = 1864469290) 52.10 cm3 LVOT peak jovany (test code = 8381534512) 110.6 cm/s LVOT mn grad (test code = 0135125861) mmHg AV LVOT peak gradient (test code = 8010812388) mmHg LVOT peak VTI (test code = 1746407750) 17.4 cm LV V1 mean (test code = 0294804825) 66.10 cm/s Aortic valve mean velocity (test code = 0460552597) 73.0 cm/s Ao peak jovany (test code = 2223640786) 124.6 cm/s Ao VTI (test code = 5577589718) 18.6 cm AV area by cont VTI (test code = 2390887744) 2.8 cm2 AV area peak jovany (test code = 0190405114) 2.7 cm2 Ao max PG (test code = 4985851623) 6.20 mm[Hg] AV peak gradient (test code = 1316336706) mmHg AV valve area (test code = 1493593557) 2.80 cm2 AV mean gradient (test code = 4506188638) mmHg Radiology Study observation (narrative) (test code = 18849-1) JUAN ALBERTO (test code = JUAN ALBERTO) [...] of Lumason ultrasound enhancing agent used. [facility]2021-12-29 12:50:31* Test Item Value Reference Range Interpretation Comme nts POCT GLU (test code = 5272920058) 141 mg/dL 70-110 H Lab Interpretation (test cod e = 36062-7) Abnormal [facility]rop[facility] G4657-00-02 10:38:31* Test Item Value Reference Range Interpretation Comments TROPONIN I (test code = 8235665672) 0.003 ng/mL See_Comment [Automated message] The system [...] of biotin. Lab Interpretation (test code = 18043-7) Normal [facility] HospitalLIPID PANEL (48217)(TOTAL CHOLESTEROL, TRIGLYCERIDES, HDL)2021-12-29 05:56:47* Test Item Value Reference Range Interpretation Comme nts CHOL (test code = 5028970216) 168 mg/dL 120-200 HDL (test code = 9616239164) 102 mg/dL See_Comment [Automated Trendyta] The system which generated this result transmitted reference range: >=40. The reference range was not used to interpret this result as normal/abnormal. HDLC RATIO (test code = 6691124238) See_Comment [Automated Trendyta] The system which generated this result transmitted reference range: <=5.0. The reference range was not used to interpret this result as normal/abnormal. TRIG (test code = 5296785737) 55 mg/dL 30-170 LDL CHOL (test code = 17623-5) 55 mg/dL See_Comment [Automated [employer]] The system which generated this result transmitted reference range: <=160. The reference range was not used to interpret this result as normal/abnormal. VLDL (test code = 6752450839) 11 mg/dL 5-60 Lab Interpretation (test code = 50393-7) Normal [facility] HospitalThyroid Stimulating Hormone (TSH)2021-12-29 05:40:29* Test Item Value Reference Range Interpretation Comme nts TSH (test code = 6759387430) See_Comment Biotin has been reported to cause a negative bias, interpret results relative to patient's use of biotin. [Automated message] The system which generated this result transmitted reference range: 0.45 - 4.70 mIU/L. The reference range was not used to interpret this result as normal/abnormal. Lab Interpretation (test code = 14056-7) Normal [facility] D7060-99-24 05:34:29* Test Item Value Reference Range Interpretation Comments TROPONIN I (test code = 3992780161) 0.006 ng/mL See_Comment [Automated message] The system which generated this result transmitted reference range: <=0.034. The reference range was not used to interpret this result as normal/abnormal. JUAN ALEBRTO (test code = JUAN ALBERTO) Reference (Normal) [...] of biotin. Lab Interpretation (test code = 42456-9) Normal [facility] HospitalETHANOL2022-07-10 04:43:01 ALCOHOL<10mg/dL12/28/2021 11:43 PM [facility]ATORYToxic Greater than or equal to 80 mg/dL. NOTE: Whole blood values are approximately 10% to 15% lower than serum and plasma.[facility] Glycosylated Hemoglobin (A1C)2021-12-29 01:51:44* Test Item Value Reference Range Interpretation Comme nts HGB A1C (test code = 4548-4) 6.5 % 4-5.7 H JUAN ALBERTO (test code = JUAN ALBERTO) Reference RangesNormal: <5.7%Prediabetes: 5.7 - 6.4%Diabetes: > 6.5% Lab Interpretation (test code = 79592-1) Abnormal [facility] I3623-79-55 21:26:50* Test Item Value Reference Range Interpretation Comments TROPONIN I (test code = 5440037083) 0.002 ng/mL See_Comment [Automated message] The system [...] of biotin. Lab Interpretation (test code = 50387-4) Normal [facility] HospitalN-TERMINAL UXJ-ULZ7272-96-09 21:23:29* Test Item Value Reference Range Interpretation Comme nts NT-proBNP (test code = 2007825684) 41 pg/mL See_Comment [Automated message] The system which generated this result transmitted reference range: <=125. The reference range was not used to interpret this result as normal/abnormal. JUAN ALBERTO (test code = JUAN ALBERTO) Biotin has been reported to cause a negative bias, interpret results relative to patient's use of biotin. Lab Interpretation (test code = 56572-0) Normal [facility] HospitalAMMONIA, YLNXVW6226-27-47 21:20:38* Test Item Value Reference Range Interpretation Comme nts AMMONIA (test code = 2141832671) 9-33 L Slight hemolysis Lab Interpretation (test code = 18756-8) Abnormal [facility] HospitalCOMP. METABOLIC PANEL (99913)2021-12-28 21:08:48* Test Item Value Reference Range Interpretation Comme nts NA (test code = 8036655814) 137 mmol/L 135-145 K (test code = 6766502067) 4.5 mmol/L 3.5-5 CL (test code = 2160370654) 97 mmol/L 98-108 L CO2 TOTAL (test code = 1270021234) 29 mmol/L 23-31 AGAP (test code = 4250806910) 2-16 BUN (test code = 5367055886) 10 mg/dL 7-23 GLUCOSE (test code = 5857350127) 188 mg/dL 70-110 H CREATININE (test code = 5672384457) 0.58 mg/dL 0.6-1.25 L TOTAL BILI (test code = 0480003614) 0.8 mg/dL 0.1-1.1 CALCIUM (test code = 5897842327) 10.5 mg/dL 8.6-10.6 T PROTEIN (test code = 9005090500) 7.6 g/dL 6.3-8.2 ALBUMIN (test code = 0710523394) 4.5 g/dL 3.5-5 ALK PHOS (test code = 3921755410) 107 U/L 34-122 ALTv (test code = 1742-6) 66 U/L 5-50 H AST(SGOT) (test code = 7360028668) 96 U/L 13-40 H eGFR (test code = 0976171646) mL/min/1.73m2 JUAN ALBERTO (test code = JUAN [...] imaging tests). Lab Interpretation (test code = 09210-4) Abnormal [facility] HospitalPROTHROMBIN TIME / [id number] 21:01:25* Test Item Value Reference Range Interpretation Comme nts PROTIME PATIENT (test code = 5964-2) See_Comment [Automated Trendyta] The system which generated this result transmitted reference range: 12.0 - 14.7 Seconds. The reference range was not used to interpret this result as normal/abnormal. INR (test code = 6301-6) Normal INR <1.1; Warfarin Therapeutic range 2.0 to 3.0 or 2.5 to 3.5, depending upon the indications. Lab Interpretation (test code = 98831-0) Normal [facility] HospitalCBC WITH [id number] 20:54:03* Test Item Value Reference Range Interpretation Comme nts WBC (test code = 6690-2) See_Comment [Automated Trendyta] The system which generated this result transmitted reference range: 4.20 - 10.70 10*3/?L. The reference range was not used to interpret this result as normal/abnormal. RBC (test code = 789-8) See_Comment [Automated [employer]] The system which generated this result transmitted [...] 34.2 g/dL 31.2-35 RDW-SD (test code = 64727-7) 47.8 fL 38.5-51.6 RDW-CV (test code = 788-0) 13.3 % 12.1-15.4 PLT (test code = 777-3) See_Comment [Automated messa ge] The system which generated this result transmitted reference range: 150 - 328 10*3/?L. The reference range was not used to interpret this result as normal/abnormal. MPV (test code = 07936-1) 8.6 fL 9.8-13 L NRBC/100 WBC (test code = 8800272445) See_Comment [Automated me ssage] The system which generated this result transmitted reference range: 0.0 - 10.0 /100 WBCs. The reference range was not used to interpret this result as normal/abnormal. NRBC x10^3 (test code = 9038208265) See_Comment [Automated messa ge] The system which generated this result transmitted reference range: 10*3/?L. The reference range was not used to interpret this result as normal/abnormal. GRAN MAT (NEUT) % (test code = 770-8) 64.1 % IMM GRAN % (test code = 8559280827) 0.40 % LYMPH % (test code = 736-9) 16.6 % MONO % (test code = 5905-5) 17.2 % EOS % (test code = 713-8) 0.2 % BASO % (test code = 706-2) 1.5 % GRAN MAT x10^3(ANC) (test code = 4842774552) 3.47 10*3/uL 1.99-6.95 IMM GRAN x10^3 (test code = 0773027323) 0-0.06 LYMPH x10^3 (test code = 731-0) 0.90 10*3/uL 1.09-3.23 L MONO x10^3 (test code = 742-7) 0.93 10*3/uL 0.36-1.02 EOS x10^3 (test code = 711-2) 0.06-0.53 L BASO x10^3 (test code = 704-7) 0.08 10*3/uL 0.01-0.09 Lab Interpretation (test code = 86185-2) Abnormal [facility] HospitalEthanol Bvxxl9377-52-55 21:08:00* Test Item Value Reference Range Interpretation Comme nts Ethanol (test code = ETOH) < 3 mg/dL The pharmacologi yudy response to blood alcohol levels mayvary from individual to individual. The fatal concentrationhas been reported to be >400mg/dL. Complete Blood Count Auto Qkki6550-37-58 17:33:00* Test Item Value Reference Range Interpretation [...] = NRBCP) 0 % UA, Urinalysis Rflx Cult/Ayaij1520-70-39 17:33:00* Test Item Value Reference Range Interpretation Comme nts Color,Urine (test code = UCOL) Dark Yellow Yellow A Clarity,Urine (test code = UCLAR) Clear Clear Ph, Urine (test code = UPH) 6.5 5.0-9.0 N Specific [place],Urine (test code = USG) 1.015 1.005-1.030 N [...] = ULEU) Trace mg/dL Negative A Urine Oenmywueggc4036-48-50 17:33:00* Test Item Value Reference Range Interpretation Comme nts RBC,Urine (test code = URBCUF) None Seen /HPF 0-2 WBC,Urine (test code = UWBCUF) 0-5 /HPF 0-5 Epithelial Cell,Urine (test code = UECUF) 0-5 /HPF 0-5 Casts,Urine (test code = UCASTUF) None Seen /LPF None Seen Bacteria,Urine (test code = UBACTUF) None Seen /hpf None Seen Drug Screen,Ukgkw6880-59-39 17:33:00* Test Item Value Reference Range Interpretation [...] code = UPROP) Negative Negative Comprehensive Metabolic Igprc5553-58-45 17:33:00* Test Item Value Reference Range Interpretation [...] 101 U/L 46-116 N Sars-CoV-2/FLU A/B RSV [id number] 17:31:00* Test Item Value Reference Range Interpretation [...] SARS-CoV-2 PCR Result:) Negative by RT-PCR Drug Screen,Acgns2986-89-52 17:20:00* Test Item Value Reference Range Interpretation [...] UPROP) Negative Negative Complete Blood Count Auto Kmuf0531-60-78 17:14:00* Test Item Value Reference Range Interpretation [...] code = NRBCP) 0 % Comprehensive Metabolic Jzkcy9291-62-11 17:14:00* Test Item Value Reference Range Interpretation [...] = ALP) 207 U/L 46-116 H Ethanol Tbfiq0989-41-70 17:14:00* Test Item Value Reference Range Interpretation Comme nts Ethanol (test code = ETOH) 192 mg/dL Complete Blood Count Auto Wplp8261-53-44 20:20:00* Test Item Value Reference Range Interpretation [...] code = NRBCP) 0 % Comprehensive Metabolic Amvrc6365-73-53 20:20:00* Test Item Value Reference Range Interpretation [...] = ALP) 189 U/L 46-116 H Ethanol Qmiff6760-60-15 20:20:00* Test Item Value Reference Range Interpretation Comme nts Ethanol (test code = ETOH) 10 mg/dL Sars-CoV-2/FLU A/B RSV BEV2160-05-67 20:20:00* Test Item Value Reference Range Interpretation [...] Negative by Nucleic Acid Amplification UA, Urinalysis Ndloxgbaspi6976-56-26 20:20:00* Test Item Value Reference Range Interpretation Comme nts Color,Urine (test code = UCOL) Yellow Y Clarity,Urine (test code = UCLAR) Clear Clear PH,Urine (test code = UPH.XX) 7.0 5.5-8.5 Specific [place],Urine (test code = USG) 1.020 1.005-1.030 N [...] code = ULEU) Negative cells/uL Negative Drug Screen,Jlvrf6828-16-44 20:20:00* Test Item Value Reference Range Interpretation [...] (test code = UTHCS) Negative RESULT TO [facility] CT head/brain wo [facility] [address] [place] [address] Patient Name: Walt Velazquez Medical Record#: [id number] Address: Homeless City/State/Zip: [place] [address]: Vinnie Navarro MD Phone: Insurance: Self Pay /Age/Sex: 1970/50/M Admit/Reg Date: 09/17/[address]: Vinnie Navarro MD Location: [facility]/ PCP: PcpMd KERWIN Jimenez Date of Service: 09/17/21 Order (s): CT head/brain wo con CPT Code: 95961 Report Number: [id number] Reason for Exam: Altered mental status Location [...] ES135 cc: PCPNO; GENESIS* Vinnie Navarro MD; Pcp-Md KERWIN Stiles Notes Date/Time Note Provider Source 2023-11-05 16:26:20 0165-53-74W63:26:20F ormatting of this note might be different [...] apparent distress. No ataxia noted. [facility]. 28577-8Hfetkspyj department FsozBZ1150-62-30W26:26:59[facility] NoteTXT1.2.840.778270.1.13.104.2.7 .2.103699|[id number] for patient zedv01819-5CrafIQRGLCMMXRGIzkskzij d C-CDA narrative [id number] R Potter RN[id number] 15RNVFKSFFQXPSPPBCCWYUTD3407-38-58 T16:26:591.2.840.870889.1.72.3.15| 1.2.840.941723.1.13.104.2.7.2.7278 [id number] Renae Saldivar RN [facility] 2023-11-05 14:56:10 1755-31-84Z87:56:10F ormatting of this note might be different from the original.Walt Velazquez Sr. is a 52 year old male arrive via [facility] c/o " throbbing ball in chest" since 0600 has been constant, pt immediately asks for food, 17214-4Hdallzycg department Triage cbnnXE9444-65-28C20:00:30[facility] department Triage noteTXT1.2.840.238299.1.13.104.2.7 .2.910233|[id number] for patient coiv98376-6Usbnclmkm department NoteLNNARRATIVEFormatted C-CDA narrative [id number] M. Barton RN[address] Zn[id number] 68JNCEJNNBTYQROAVUTMRWTG9739-16-19 T15:00:301.2.840.425321.1.72.3.15| 1.2.840.513198.1.13.104.2.7.2.7278 [id number] Emani Gomez RN [facility]
[2023-12-04 10:59] LABS: Absolute Basophils 0.1 K/uL (0-0.5); Absolute Eosinophils 0.1 K/uL (0-0.5); Absolute Lymphocytes (CBC) 2.1 K/uL (0.7-4.9); Absolute Monocytes 0.8 K/uL (0.1-1.3); Absolute Neutrophil 5.4 K/uL (1.8-8.0); Basophils % 0.6 % (0-1.3); Eosinophils % 0.8 % (0-4.4); Hematocrit 38.6 % (39.6-49.0); Hemoglobin 12.7 g/dL (13.6-17.9); Lymphocytes % 24.4 % (15.3-44.8); MCH 30.5 pg (27.0-35.0); MCHC 32.8 g/dL (32.0-36.0); MCV 92.9 fL (80-100); MPV 6.9 fL (7.6-11.3); Monocytes % 9.9 % (3.3-12.3); Neutrophils % 64.3 % (41.7-73.7); Platelets 273 thou/uL (152-406); RBC Red Blood Cell Count 4.15 M/uL (4.33-5.43); Red Cell Distribution Width 16.7 % (12.1-15.2)
[2023-12-04 11:19] LABS: ALT/SGPT 17 U/L (16-61); Albumin 3.3 g/dL (3.4-5.0); Albumin/Globulin Ratio 1.1 (1.1-1.8); Alkaline Phosphatase 132 U/L (45-117); Anion Gap 12.1 mEq/L (5.0-15.0); BUN Blood Urea Nitrogen 10 mg/dL (7-18); Bicarbonate 20 mEq/L (21-32); Bilirubin Total 0.2 mg/dL (0.2-1.0); Globulin 3.1 g/dL (2.3-3.5); Glomerular Filtration Rate 108 ml/min (=/>90); Glucose Level 209 mg/dL (74-106); Potassium 3.1 mEq/L (3.5-5.1); Protein, Total 6.4 g/dL (6.4-8.2); Sodium Level 139 mEq/L (136-145); Troponin High Sensitivity 5.1 pg/mL (<58.9)
[2023-12-04 11:20] LABS: AST/SGOT < 10 U/L (15-37)
--- NOTE | 2023-12-04 11:27 | ER ---
Nurse's Notes [facility] Name: Walt Velazquez Age: 52 yrs Sex: Male : 1970 Arrival Date: 12/04/2023 Time: 10:21 Bed 20 Private MD: Diagnosis: Chest pain, unspecified;Alcohol abuse;Alcohol dependence;Bipolar disorder, unspecified;Hypokalemia Presentation: 12/03 10:22 Chief complaint: EMS states: "IT'S HOT OUTSIDE." PER EMS, 911 CALLED FOR PT REFUSING TO bp LEAVE RESTRAUNT. Coronavirus screen: At this time, the client does not indicate any symptoms associated with coronavirus-19. Ebola Screen: No symptoms or risks identified at this time. Initial Sepsis Screen: Does the patient meet any 2 criteria? No. Patient's initial sepsis screen is negative. Does the patient have a suspected source of infection? No. Patient's initial sepsis screen is negative. Risk Assessment: Do you want to hurt yourself or someone else? Patient reports no desire to harm self or others. Note PT D/C LESS THAN 12 HR AGO. Onset of symptoms is unknown. 10:22 Method Of Arrival: EMS: [facility] bp 10:22 Acuity: LATASHA 4 bp Triage Assessment: 10:23 General: Appears in no apparent distress. Behavior is uncooperative. Pain: Denies pain. bp EENT: No deficits noted. Neuro: Level of Consciousness is lethargic, Oriented to Appropriate for age. Cardiovascular: Rhythm is sinus rhythm. Respiratory: No deficits noted. GI: No signs and/or symptoms were reported involving the gastrointestinal system. : No signs and/or symptoms were reported regarding the genitourinary system. Derm: No deficits noted. Musculoskeletal: No deficits noted. Historical: - Allergies: 10:23 Trazodone; bp - PMHx: 10:23 Alcoholism; Bipolar II; Hypertensive disorder; Parkinsons; Seizure; bp - Immunization history:: Adult Immunizations up to date. - Infectious Disease History:: Denies. - Social history:: Smoking status: Patient reports the use of cigarette tobacco products, unknown amount. Screenin:25 [facility] ED Fall Risk Assessment (Adult) History of falling in the last 3 months, bp including since admission No falls in past 3 months (0 pts). Abuse screen: Denies threats or abuse. Denies injuries from another. Nutritional screening: No deficits noted. Tuberculosis screening: No symptoms or risk factors identified. Assessment: 11:46 Reassessment: DC ON HOLD FOR IVF. bp 12:04 General: Appears uncomfortable, unkempt, Behavior is calm, cooperative, appropriate for me1 age, Reports intially c/o it being hot outside and that he got too hot. 12:04 Pain: Denies pain. Neuro: Level of Consciousness is awake, alert, obeys commands, me1 Oriented to person, place, time, situation, Appropriate for age. Cardiovascular: Patient's skin is warm and dry. Respiratory: Airway is patent Respiratory effort is even, unlabored, Respiratory pattern is regular, symmetrical. GI: No signs and/or symptoms were reported involving the gastrointestinal system. : No signs and/or symptoms were reported regarding the genitourinary system. EENT: No signs and/or symptoms were reported regarding the EENT system. Derm: Skin is pink, warm \\T\\ dry. Musculoskeletal: No signs and/or symptoms reported regarding the musculoskeletal system. Vital Signs: 10:22 BP 110 / 50; Pulse 90; Resp 18; Temp 98; Pulse Ox 95% ; bp 11:00 BP 115 / 71; Pulse 96; Resp 18; Pulse Ox 96% on R/A; me1 12:00 BP 113 / 75; Pulse 100; Resp 16; Pulse Ox 97% on R/A; me1 13:00 BP 96 / 53; Pulse 99; Resp 17; Pulse Ox 97% ; me1 14:00 BP 105 / 59; Pulse 98; Resp 18; Pulse Ox 98% ; me1 ED Course: 10:22 Patient arrived in ED. bp 10:23 Deandre Mckeon MD is Attending Physician. bridgette 10:23 Triage completed. bp 10:23 Arm band placed on. bp 10:25 Patient has correct armband on for positive identification. bp 10:25 Maintain EMS IV. Dressing intact. Good blood return noted. Site clean \\T\\ dry. Gauge \\T\\ bp site: 22 R FA. 10:30 James Cantu, ROBERTO is Primary Nurse. bp 11:26 Cristhian Hernandez MD is Referral Physician. brigdette 11:26 Enio Gallardo MD is Referral Physician. bridgette 11:28 Chest Single View XRAY In Process Unspecified. EDDC 12:04 Provided Education on: POC. Verbalized understanding. . Client placed on continuous me1 cardiac and pulse oximetry monitoring. NIBP monitoring applied. director agricultural services on. Pulse ox on. NIBP on. 12:04 No provider procedures requiring assistance completed. me1 Administered Medications: 11:37 Drug: Banana Bag - (Multivitamin IV 1 amp, NS 0.9% IV 1000 ml, Thiamine IV 100 mg, bp foLIC Acid IVPB 1 mg) IV at 500 ml/hr once Route: IV; Rate: 500 ml/hr; Site: left forearm; 14:03 Follow up: Response: No adverse reaction; IV Status: Completed infusion; IV Intake: me1 1000ml 11:37 Drug: Thiamine IV 100 mg IV at bolus once Route: IV; Rate: bolus; Site: left forearm; bp 11:45 Follow up: IV Status: Completed infusion; IV Intake: 100ml bp 11:45 Not Given (Patient Refused): aspirinchewable tablet 81 mg PO once bp 11:45 Not Given (Patient Refused): potassiumeffervescent tablet 50 meq PO once; dissolve in 4 bp ounces of water or juice Medication: 12:04 VIS not applicable for this client. me1 Intake: 11:45 IV: 100ml; Total: 100ml. bp 14:03 IV: 1000ml; Total: 1100ml. me1 Outcome: 11:26 Discharge ordered by . bridgette 14:07 Patient left the ED. [facility] Signatures: Dispatcher [employer] EDDC Deandre Mckeon MD MD cha Peltier, Brian, RN RN Monet Masters RN RN [facility] Dora Bowens RN RN vt1 Corrections: (The following items were deleted from the chart) 10:32 10:22 Chief complaint: EMS states: "IT'S HOT OUTSIDE." bp bp
--- NOTE | 2023-12-04 11:27 | EDPHYS ---
Physician Documentation [facility] Name: Walt Velazquez Age: 52 yrs Sex: Male : 1970 Arrival Date: 12/04/2023 Time: 10:21 Bed 20 Private MD: JANA Physician Deandre Mckeon HPI: 12/03 10:30 This 52 yrs old Male presents to ER via EMS with complaints of "IT'S HOT OUT bridgette THERE". 10:30 The patient or guardian reports chest pain that is located primarily in the anterior bridgette chest wall, bilaterally. Onset: this morning, today. its hot outside. The pain does not radiate. Onset: The symptoms/episode began/occurred this morning. Associated signs and symptoms: The patient has no apparent associated signs or symptoms. The chest pain is described as aching. Historical: - Allergies: 10:23 Trazodone; bp - PMHx: 10:23 Alcoholism; Bipolar II; Hypertensive disorder; Parkinsons; Seizure; bp - Immunization history:: Adult Immunizations up to date. - Infectious Disease History:: Denies. - Social history:: Smoking status: Patient reports the use of cigarette tobacco products, unknown amount. ROS: 10:31 Constitutional: Negative for fever, chills, and weight loss, Eyes: Negative for injury, bridgette pain, redness, and discharge, ENT: Negative for injury, pain, and discharge, Neck: Negative for injury, pain, and swelling, Respiratory: Negative for shortness of breath, cough, wheezing, and pleuritic chest pain, Abdomen/GI: Negative for abdominal pain, nausea, vomiting, diarrhea, and constipation, Back: Negative for injury and pain, : Negative for injury, bleeding, discharge, and swelling, MS/Extremity: Negative for injury and deformity, Skin: Negative for injury, rash, and discoloration, Neuro: Negative for headache, weakness, numbness, tingling, and seizure, Psych: Negative for depression, anxiety, suicide ideation, homicidal ideation, and hallucinations, Allergy/Immunology: Negative for hives, rash, and allergies, Endocrine: Negative for neck swelling, polydipsia, polyuria, polyphagia, and marked weight changes, 10:31 Cardiovascular: Positive for chest pain, of the chest, Exam: 10:31 Constitutional: This is a well developed, well nourished patient who is awake, alert, bridgette and in no acute distress. Head/Face: Normocephalic, atraumatic. Eyes: Pupils equal round and reactive to light, extra-ocular motions intact. Lids and lashes normal. Conjunctiva and sclera are non-icteric and not injected. Cornea within normal limits. Periorbital areas with no swelling, redness, or edema. ENT: Nares patent. No nasal discharge, no septal abnormalities noted. Tympanic membranes are normal and external auditory canals are clear. Oropharynx with no redness, swelling, or masses, exudates, or evidence of obstruction, uvula midline. Mucous membranes moist. Neck: Trachea midline, no thyromegaly or masses palpated, and no cervical lymphadenopathy. Supple, full range of motion without nuchal rigidity, or vertebral point tenderness. No Meningismus. Chest/axilla: Normal chest wall appearance and motion. Nontender with no deformity. No lesions are appreciated. Cardiovascular: Regular rate and rhythm with a normal S1 and S2. No gallops, murmurs, or rubs. Normal PMI, no JVD. No pulse deficits. Respiratory: Lungs have equal breath sounds bilaterally, clear to auscultation and percussion. No rales, rhonchi or wheezes noted. No increased work of breathing, no retractions or nasal flaring. Abdomen/GI: Soft, non-tender, with normal bowel sounds. No distension or tympany. No guarding or rebound. No evidence of tenderness throughout. Back: No spinal tenderness. No costovertebral tenderness. Full range of motion. Male : Normal genitalia with no discharge or lesions. Skin: Warm, dry with normal turgor. Normal color with no rashes, no lesions, and no evidence of cellulitis. MS/ Extremity: Pulses equal, no cyanosis. Neurovascular intact. Full, normal range of motion. Neuro: Awake and alert, GCS 15, oriented to person, place, time, and situation. Cranial nerves II-XII grossly intact. Motor strength 5/5 in all extremities. Sensory grossly intact. Cerebellar exam normal. Normal gait. Psych: Awake, alert, with orientation to person, place and time. Behavior, mood, and affect are within normal limits. Vital Signs: 10:22 BP 110 / 50; Pulse 90; Resp 18; Temp 98; Pulse Ox 95% ; bp 11:00 BP 115 / 71; Pulse 96; Resp 18; Pulse Ox 96% on R/A; me1 12:00 BP 113 / 75; Pulse 100; Resp 16; Pulse Ox 97% on R/A; me1 13:00 BP 96 / 53; Pulse 99; Resp 17; Pulse Ox 97% ; me1 14:00 BP 105 / 59; Pulse 98; Resp 18; Pulse Ox 98% ; me1 MDM: 10:23 Patient medically screened. bridgette 10:32 Differential diagnosis: abnormal EKG, acute myocardial infarction, acute pericarditis, bridgette anxiety, chest wall pain, cholecystitis, Cholelithiasis costochondritis, esophagitis, gastritis, gastroesophageal reflux disease (GERD), hiatal hernia, peptic ulcer disease, pleurisy, pneumonia, pulmonary embolus, stable angina, thoracic aortic disection, unstable angina. Differential Diagnosis altered mental status. HEART Score: History: Moderately Suspicious (1), ECG: Non specific repolarization disturbance / LBTB / PM (1), Age: > 45 and < 65 years (1), Risk Factors: > or = 3 Risk factors for atherosclerotic disease (2), [Hypercholesterolemia] [Hypertension] [Active Smoker] [+ Family HX] Troponin: < or = 1 x Normal Limit (0). The patient was given aspirin in the Emergency Department. ALEJANDRINA Risk Score: 1 - Three or more CAD risk factors, [Family Hx], [HTN], [Elevated Cholesterol], [Active Smoker], TOTAL SCORE = 1. Data reviewed: vital signs, nurses notes, lab test result(s), EKG, radiologic studies, plain films. Consideration of Admission/Observation Escalation of care including admission/observation considered. I considered the following discharge prescriptions or medication management in the emergency department Medications were administered in the Emergency Department. See MAR. Independent interpretation of the following test(s) in the Emergency Department EKG: See my EKG interpretation above. Test considered but Not performed: CT: no ct chest. 12/03 10:26 Order name: CBC with Diff; Complete Time: 11: bridgette 12/03 10:26 Order name: Comprehensive Metabolic Panel; Complete Time: 11: bridgette 12/03 10:26 Order name: Troponin HS; Complete Time: :12/03 10:26 Order name: ETOH Level; Complete Time: :12/03 10:31 Order name: Chest Single View XRAY [facility] 12/03 10:26 Order name: EKG; Complete Time: 10:26 [facility] 12/03 10:26 Order name: Seizure Precautions; Complete Time: 10:45 bridgette Administered Medications: 11:37 Drug: Banana Bag - (Multivitamin IV 1 amp, NS 0.9% IV 1000 ml, Thiamine IV 100 mg, bp foLIC Acid IVPB 1 mg) IV at 500 ml/hr once Route: IV; Rate: 500 ml/hr; Site: left forearm; 14:03 Follow up: Response: No adverse reaction; IV Status: Completed infusion; IV Intake: me1 1000ml 11:37 Drug: Thiamine IV 100 mg IV at bolus once Route: IV; Rate: bolus; Site: left forearm; bp 11:45 Follow up: IV Status: Completed infusion; IV Intake: 100ml bp 11:45 Not Given (Patient Refused): aspirinchewable tablet 81 mg PO once bp 11:45 Not Given (Patient Refused): potassiumeffervescent tablet 50 meq PO once; dissolve in 4 bp ounces of water or juice Disposition Summary: 12/04/23 11:26 Discharge Ordered Notes: Location: Home bridgette Problem: new bridgette Symptoms: have improved bridgette Condition: Stable bridgette Diagnosis - Chest pain, unspecified bridgette - Alcohol abuse bridgette - Alcohol dependence bridgette - Bipolar disorder, unspecified bridgette - Hypokalemia bridgette Followup: bridgette - With: Private Physician - When: 1 - 2 days - Reason: Recheck today's complaints, Continuance of care, Re-evaluation by your physician Followup: bridgette - With: Cristhian Hernandez MD - When: 2 - 3 days - Reason: Recheck today's complaints, Re-evaluation by your physician Followup: bridgette - With: Enio Gallardo MD - When: 2 - 3 days - Reason: Recheck today's complaints, Re-evaluation by your physician Discharge Instructions: - Discharge Summary Sheet bridgette - Nonspecific Chest Pain, Adult bridgette - Potassium Content of Foods bridgette - Nonspecific Chest Pain, Adult, [id number] bridgette - Heat Exhaustion bridgette - Aspirin and Your Heart bridgette - Hypokalemia bridgette - Managing Bipolar Disorder bridgette - Mixed Bipolar Disorder bridgette - Supporting Someone With Bipolar Disorder bridgette - Preventing Heat Exhaustion, Adult bridgette Forms: - Medication Reconciliation Form bridgette - Antibiotic Education bridgette - Prescription Opioid Use bridgette - Patient Portal Instructions bridgette - Leadership Thank You Letter [facility] Prescriptions: - Pepcid 20 mg Oral tablet - take 1 tablet ORAL route every 12 hours for 21 days; 42 tablet; Refills: 0, [facility] Product Selection Permitted - Potassium Chloride 20 meq Oral Packet - take 1 packet ORAL route once daily 1 packet in 6 (six) ounces of water or bridgette juice; Take after meal; 10 packet; Refills: 0, Product Selection Permitted Signatures: Dispatcher [employer] EDDeandre Castrejon MD MD cha Peltier, Brian, RN RN bp Dora Bowens RN me1 Corrections: (The following items were deleted from the chart) 10:27 10:26 CBC+H.LAB.BRZ ordered. EDMS EDMS 10:27 10:26 COMPREHENSIVE METABOLIC PANEL+C.LAB.BRZ ordered. EDMS EDMS 10:27 10:26 PROTIME (+INR)+COAG.LAB.BRZ ordered. EDMS EDMS 10:27 10:26 Troponin High Sensitivity+C.LAB.BRZ ordered. EDMS EDMS 10:27 10:26 Urinalysis+U.LAB.BRZ ordered. EDMS EDMS 10:27 10:26 URINE DRUG SCREEN+UC.LAB.BRZ ordered. EDMS EDMS 10:27 10:26 ETHANOL+C.LAB.BRZ ordered. EDMS EDMS 10:31 10:31 Chest Single View+RAD.RAD.BRZ ordered. EDMS EDMS 10:58 10:26 EKG - Nurse/Tech ordered. [facility]
--- NOTE | 2023-12-04 11:56 | RAD REPORT ---
EXAM DESCRIPTION: [facility] Single View12/04/2023 11:26 am CLINICAL HISTORY: Chest pain COMPARISON: September 2023 FINDINGS: The lungs appear clear of acute infiltrate. The heart is normal size IMPRESSION: No acute abnormalities displayed
[2023-12-04] MEDS ORDERED: FOLIC ACID 1 MG, MULTIVITAMINS INJ 10 ML, THIAMINE HCL 100 MG in NA CHLORIDE 0.9% 1,000 ML IV ONE (12:00)
[2023-12-04 14:24] VITALS: BP 110/50; TEMP 98; O2SAT 95
--- NOTE | 2023-12-07 15:01 | EKG ---
Test Date: 2023-12-04 Test Time: 18:59:18 Resort Host: FRANTZ MEASUREMENT RESULTS: Intervals: Rate: 102 ID: [id number] QRSD: 76 QT: 312 QTc: 406 [place]: P: 51 ID: [id number] QRS: 36 T: -43 INTERPRETIVE STATEMENTS: Sinus tachycardia T wave abnormality, consider inferior ischemia Abnormal ECG Compared to ECG 12/04/2023 00:29:02 Possible ischemia now present Sinus rhythm no longer present T-wave abnormality still present Electronically Signed On 12-07-23 14:53:31 CDT by Cristhian Hernandez
== END 2023-12-04 14:07 | disposition home or self-care (01) ==
LOC: ER 10:21
DX: R07.89 Other chest pain (principal); F10.20 Alcohol dependence, uncomplicated; E87.6 Hypokalemia; F31.9 Bipolar disorder, unspecified
CPT/HCPCS: 36415; 71045; 80053; 82077; 84484; 85025; 93005; 96365; 96366; 96375; 99285; J3411; J7030

== ENCOUNTER 2023-12-04 18:45 | Emergency (ER) | payer SELFPAY ==
--- OUTSIDE RECORDS SUMMARY | 2023-12-04 18:52 | XMS REPORT | Continuity of Care Document ---
Author Name Unknown Address [address] [facility] [address] [place] [address] [facility] Address [address] [facility] [address] [place] [address] Care Team Providers Care Glove Operator Name Role Phone Pcp-None Primary Care Physician Unavailab uSlaiman Armenta DO Attending Clinician [phone] HEMANT KLEIN Attending Clinician Unavailable Hemant Klein MD Attending Clinician [phone] [place] Attending Clinician Unavailab JESSICA Gallardo Attending Clinician Unavailable Rayray Driscoll MD Attending Clinician + Jessica Prado MD Attending Clinician +[phone] Oswald Murphy MD Attending Clinician [phone] DIYA CHOWDHURY Attending Clinician Unavailab Diya Mackey DO Attending Clinician +[phone] Fidel Cuellar Attending Clinician Unavailable DIRK YARBROUGH Attending Clinician Unavailable Leticia Rowland Attending Clinician [phone] Dirk Yarbrough MD Attending Clinician +[phone] Faye Portillo LVN Attending Clinician [phone] Pia Reddy Attending Clinician [phone] Vinnie Navarro Attending Clinician Unavailable OSWALD MURPHY Admitting Clinician Unavailable Oswald Murphy MD Admitting Clinician [phone] DIYA CHOWDHURY Admitting Clinician UnavailLeticia Gaytan Admitting Clinician Unavailable JESSICA PRADO Admitting Clinician Unavailable Jessica Prado MD Admitting Clinician [phone] Payers Payer Name Policy Type Policy Number Effective Date Expirati on Date Source Problems Condition Name Condition Details Condition Category Status Onset Date Resolution Date Last Treatment Date Treating Clinician Comments Source Alcohol withdrawal syndrome with complicati on Alcohol withdrawal syndrome with complicati on Disease Active 08-10 00:00: 00 [facility] Type 2 diabetes mellitus with other specified complicati on Type 2 diabetes mellitus with other specified complicati on Disease Active 12-29 00:00: 00 [facility] Dyslipidem ia Dyslipidem ia Disease Active 12-29 00:00: 00 [facility] Chest pain, unspecifie d type Chest pain, unspecifie d type Disease Active 12-28 00:00: 00 [facility] Priapism Priapism Disease Active 2013-06 1-06 00:00: 00 [facility] Allergies, Adverse Reactions, Alerts Allergy Name Allergy Type Status Severity Reaction(s) Onset Date Inactive Date Treating Clinician Comments Source No Known Drug Allergie s DA Active U 4-25 00:00: 00 [facility] No Known Drug Allergie s DA Active U 0 9-16 00:00: 00 [facility] No Known Drug Allergie s DA Active U 0 3-29 00:00: 00 [facility] No Known Drug Allergie s DA Active U 2019-06 2-16 00:00: 00 [facility] No Known Drug Allergie s DA Active U 2019-06 2-15 00:00: 00 [facility] No Known Drug Allergie s DA Active U 2019-06 2-02 00:00: 00 [facility] Trazodon e Propensi ty to adverse reaction s Active Other - See comments 10-06 00:00: 00 [facility] TRAZODON E DRUG INGREDI Active Other-Cmnt 10-06 00:00: 00 [facility] Social History Social Habit Start Date Stop Date Quantity Comments Source History of tobacco use Cigarette Smoker [facility] to SARS-CoV-2 (event) 2022-11-01 00:00:00 2022-11-11 13:57:00 Not sure [facility] Tobacco use and exposure 2022-08-10 00:00:00 2022-08-10 00:00:00 User of smokeless tobacco [facility] Alcohol intake 2022-08-10 00:00:00 2022-08-10 00:00:00 Current drinker of alcohol (finding) [facility] Tobacco Comment 2022-08-10 00:00:00 2022-08-10 00:00:00 1/2 a pack a day [facility] Alcoholic beverage intake 2022-08-10 00:00:00 2022-08-10 00:00:00 Current drinker of alcohol (finding) [facility] History of Social function 2022-08-10 00:00:00 2022-08-10 00:00:00 [facility] Sex assigned at 1970 00:00:00 1970 00:00:00 [facility] Smoking Status Start Date Stop Date Source Smokes tobacco daily 2022-08-10 00:00:00 [facility] Medications Ordered Medication Name Filled Medication Name Start Date Stop Date Current Medication? Ordering Clinician Indication Dosage Frequency Signature (SIG) Comments Components Source NaCl 0.9% (NS) bolus infusion 1,000 mL 11-11 19:45: 00 11-11 20:23 :00 No 1000mL at 999 mL/hr, 1,000 mL, IV Piggyback, ONCE, 1 dose, On Thu11/11/22 at 1445, STAT [facility] multivitami n tablet 1 tablet 2- 15:00: 00 Yes 1{tbl} 1 tablet, Oral, DAILY, First dose on Thu08/12/22 at 0900, Until Discontinu ed, Routine [facility] foLIC acid (FOLATE) tablet 1 mg 08-12 15:00: 00 Yes 1mg 1 mg, Oral, DAILY, First dose on Thu08/12/22 at 0900, Until Discontinu ed, Routine [facility] foLIC acid 1 mg tablet 08-12 00:00: 00 09-12 04:59 :00 No [id number] 1mg Take 1 tablet by mouth in the morning for 30 days. [facility] oxazepam (SERAX) capsule 15 mg [...] Thu08/13/22 at 0600, Routine [Order 2 End] [facility] thiamine (VITAMIN B1) tablet 100 mg 08-11 16:15: 00 Yes 100mg 100 mg, Oral, DAILY, First dose on Thu08/11/22 at 1015, Until Discontinu ed, Routine [facility] enoxaparin (LOVENOX) injection 40 mg 08-10 23:00: 00 Yes 40mg 40 mg, Subcutaneo us, DAILY, First dose on Thu08/10/22 at 1700, Until Discontinu ed, Routine [facility] NaCl 0.9% (NS) IV infusion [...] Until Discontinu ed, 50 mL [facility] thiamine (VITAMIN B1) 100 mg in NaCl 0.9% (NS) piggyback 08-10 15:00: 00 08-10 16:08 :00 No 100mg IV Piggyback, DAILY, 1 dose, First dose on 08/10/22 at 0900, 50 mL [facility] LORazepam (ATIVAN) injection 2 mg 08-10 14:52: 57 Yes 2mg 2 mg, Slow IV Push, Q4HPRN, Starting on 08/10/22 at 0852, Until Discontinu ed, Routine, Seizures, Agitation, Anxiety [facility] Sliding Scale Insulin-Reg ular + Fsbg Testing 08-10 13:30: 00 Yes Subcutaneo us, AC+HS, First dose on Thu08/10/22 at 0730, Until Discontinu ed, Routine [facility] oxazepam (SERAX) capsule 15 mg 08-10 12:08: 05 Yes 15mg 15 mg, Oral, Q4HPRN, Starting on Thu08/10/22 at 0608, Until Discontinu ed, Routine, Only while awake for DBP equal to or greater than 100, HR equal to or greater than 100. [facility] dextrose 10% (D10W) bolus infusion [...] blood glucose is < 80 mg/dL, repeat.
[facility] glucagon (GLUCAGEN DIAGNOSTIC KIT) injection 1 mg 08-10 12:03: 20 Yes 1mg 1 mg, Intramuscu lar, PRN, Starting on Thu08/10/22 at 0603, Until Discontinu ed, JACIEL, Blood Glucose < or = 70 mg/dL and patient is NPO, unable to swallow or has mental changes. [facility] ondansetron (ZOFRAN (PF)) injection 4 mg 08-10 12:02: 53 Yes 4mg 4 mg, Slow IV Push, Q6HPRN, Starting on Thu08/10/22 at 0602, Until Discontinu ed, Routine, Nausea and Vomiting (N/V) [facility] ibuprofen (MOTRIN IB) tablet 200 mg 08-10 12:02: 45 Yes 200mg 200 mg, Oral, Q6HPRN, Starting on Thu08/10/22 at 0602, Until Discontinu ed, Routine, Pain (scale 1-3) [facility] NaCl 0.9% (NS) bolus infusion 1,000 mL 08-10 10:15: 00 08-10 13:00 :00 No 1000mL at 999 mL/hr, 1,000 mL, IV Infusion, ONCE, 1 dose, On Thu08/10/22 at 0415, STAT [facility] LORazepam (ATIVAN) injection 0.5 mg 08-10 09:15: 00 08-10 09:19 :00 No .5mg 0.5 mg, Slow IV Push, ONCE, 1 dose, On Thu08/10/22 at 0315, STAT [facility] LORazepam (ATIVAN) injection 1 mg 08-10 08:00: 00 08-10 07:05 :00 No 1mg 1 mg, Slow IV Push, ONCE NOW, 1 dose, On 08/10/22 at 0200, STAT [facility] thiamine (VITAMIN B1) injection 100 mg 08-10 06:45: 00 08-10 06:52 :00 No 100mg 100 mg, Intravenou s, ONCE, 1 dose, On 08/10/22 at 0045, [facility] ([facility]IVAN) [facility] 1 mg 08-10 05:15: 00 08-10 05:22 :00 No 1mg 1 mg, Slow IV Push, ONCE, 1 dose, On 08/09/22 at 2315, STAT [facility] ketorolac (TORADOL) injection 15 mg 2021-0616 16:00: 00 04-06 14:50 :00 No 15mg 15 mg, Slow IV Push, ONCE, 1 dose, On 04/06/22 at 1100, [facility] ondans[facility] (ZOFRAN (PF)) injection 4 mg 2021-06 15:45: 00 04-06 14:50 :00 No 4mg 4 mg, Slow IV Push, ONCE, 1 dose, On 04/06/22 at 1045, [facility] oxazepam (SERAX) capsule 15 mg 12-31 06:28: 17 01-01 06:29 :00 No 15mg 15 mg, Oral, Q12H TAPER, 2 doses, First dose on Thu12/31/21 at 0130, Last dose on Thu12/31/21 at 1330, Routine [facility] multivitami n tablet 12-31 00:00: 00 Yes [id number] 1{tbl} Take 1 tablet by mouth in the morning. [facility] thiamine 100 mg tablet 12-31 00:00: 00 Yes [id number] 100mg Take 1 tablet by mouth in the morning. [facility] aspirin 81 mg chewable tablet 12-31 00:00: 00 Yes [id number] 81mg Take 1 tablet by mouth in the morning. [facility] foLIC acid 1 mg tablet 12-31 00:00: 00 01-31 04:59 :00 No [id number] 1mg Take 1 tablet by mouth in the morning for 30 days. [facility] metFORMIN 500 mg tablet 12-30 00:00: 00 Yes [id number] 500mg Take 1 tablet by mouth in the morning and 1 tablet in the evening. Take with meals. [facility] aspirin chewable tablet 81 mg 12-29 14:00: 00 Yes 81mg 81 mg, Oral, DAILY, First dose on 12/29/21 at 0900, Until Discontinu ed, Routine [facility] sulfur hexafluorid e microsphr (LUMASON) injection 5 mL 12-29 13:45: 00 12-29 13:45 :00 No [id number] 5mL 5 mL, Intravenou s, ONCE, 1 dose, On 12/29/21 at 0845, Routine
nutrition faculty member approving Restricted medication : STEFANIE GORMAN [facility] enoxaparin (LOVENOX) injection 40 mg 12-29 13:00: 00 Yes 40mg 40 mg, Subcutaneo us, Q24H, First dose on Thu12/29/21 at 0800, Until Discontinu ed, Routine [facility] Sliding Scale Insulin - Lispro (HumaLOG) + Fsbg Testing 12-29 13:00: 00 Yes Subcutaneo us, TID MEALS+HS, First dose on Thu12/29/21 at 0800, Until Discontinu ed, Routine [facility] diazePAM (VALIUM) injection 10 mg 12-29 05:30: 00 12-29 04:40 :00 No 10mg 10 mg, Intravenou s, ONCE, 1 dose, On 12/29/21 at 0030, Routine [facility] diazePAM (VALIUM) injection 10 mg 12-29 04:15: 00 12-29 03:17 :00 No 10mg 10 mg, Intravenou s, ONCE, 1 dose, On 12/28/21 at 2315, Routine [facility] diazePAM (VALIUM) injection 5 mg 12-29 03:45: 01 Yes 5mg 5 mg, Intravenou s, QIDPRN, Starting on 12/28/21 at 2245, Until Discontinu ed, Routine, Seizures, Agitation [facility] foLIC acid (FOLATE) tablet 1 mg 12-29 03:45: 00 Yes 1mg 1 mg, Oral, DAILY, First dose on 12/28/21 at 2245, Until Discontinu ed, Routine [facility] thiamine (VITAMIN B1) tablet 100 mg 12-29 03:45: 00 Yes 100mg 100 mg, Oral, DAILY, First dose (after last modificati on) on 12/28/21 at 2245, Until Discontinu ed, Routine [facility] glucagon (GLUCAGEN DIAGNOSTIC KIT) injection 1 mg 12-29 03:42: 19 Yes 1mg 1 mg, Intramuscu lar, PRN, Starting on 12/28/21 at 2242, Until Discontinu ed, JACIEL, Blood Glucose < or = 70 mg/dL and patient is unable to swallow or has mental changes. [facility] dextrose 10% (D10W) bolus infusion [...] blood glucose is < 80 mg/dL, repeat.
[facility] LORazepam (ATIVAN) injection 1 mg 12-29 03:30: 00 12-29 02:32 :00 No 1mg 1 mg, Intravenou s, ONCE, 1 dose, On 12/28/21 at 2230, Routine
Is the medication being used for status epilepticu s? No [facility] oxazepam (SERAX) capsule 15 mg 12-29 00:28: 20 Yes 15mg 15 mg, Oral, Q4HPRN, Starting on 12/28/21 at 1928, Until Discontinu ed, Routine, Only while awake for DBP equal to or greater than 100, HR equal to or greater than 100. [facility] ondansetron (ZOFRAN (PF)) injection 4 mg 12-29 00:23: 47 Yes 4mg 4 mg, Slow IV Push, Q6HPRN, Starting on 12/28/21 at 1923, Until Discontinu ed, Routine, Nausea and Vomiting (N/V) [facility] acetaminoph en (TYLENOL) tablet 650 mg 12-29 00:23: 37 Yes 650mg 650 mg, Oral, Q6HPRN, Starting on 12/28/21 at 1923, Until Discontinu ed, Routine, Pain (scale 1-3), Temp > 38.5 C [facility] chlordiazeP OXIDE (LIBRIUM) capsule 25 mg 12-28 23:15: 00 12-28 23:24 :00 No 25mg 25 mg, Oral, ONCE, 1 dose, On 12/28/21 at 1815, JACIEL [facility] NaCl 0.9% (NS) bolus infusion 2,000 mL 12-28 22:45: 00 12-28 23:18 :00 No 2000mL at 999 mL/hr, 2,000 mL, IV Infusion, ONCE, 1 dose, On 12/28/21 at 1745, JACIEL [facility] LORazepam (ATIVAN) injection 1 mg 12-28 20:45: 00 12-28 20:49 :00 No 1mg 1 mg, Slow IV Push, ONCE, 1 dose, On 12/28/21 at 1545, STAT
Is the medication being used for status epilepticu s? No [facility] acetaminoph en (TYLENOL) 500 mg tablet 10-06 00:00: 00 Yes 500mg Take 1 Tab by mouth every 6 (six) hours as needed for Pain. [facility] Vital Signs Vital Name Observation Time Observation Value Comments S tyrese Systolic blood pressure 2023-11-05 21:00:00 106 mm[Hg] [facility] Diastolic blood pressure 2023-11-05 21:00:00 70 mm[Hg] [facility] Heart rate 2023-11-05 21:00:00 74 /min [facility] Body temperature 2023-11-05 21:00:00 36.5 Theresa [facility] Respiratory rate 2023-11-05 21:00:00 21 /min [facility] Oxygen saturation in Arterial blood by Pulse oximetry 2023-11-05 21:00:00 98 /min [facility] Body height 2023-11-05 19:59:00 160 cm [facility] Body weight 2023-11-05 19:59:00 63.504 kg [facility] BMI 2023-11-05 19:59:00 24.80 kg/m2 [facility] Systolic blood pressure 2022-11-11 20:31:31 116 mm[Hg] [facility] Diastolic blood pressure 2022-11-11 20:31:31 77 mm[Hg] [facility] Heart rate 2022-11-11 20:31:31 84 /min [facility] Respiratory rate 2022-11-11 20:31:31 12 /min [facility] Oxygen saturation in Arterial blood by Pulse oximetry 2022-11-11 20:31:31 90 /min [facility] Body temperature 2022-11-11 18:49:00 37.11 Theresa [facility] Body height 2022-11-11 18:49:00 160 cm [facility] Body weight 2022-11-11 18:49:00 68.04 kg [facility] BMI 2022-11-11 18:49:00 26.57 kg/m2 [facility] Body temperature 2022-08-11 14:00:00 36.5 Theresa [facility] Systolic blood pressure 2022-08-11 10:00:00 116 mm[Hg] [facility] Diastolic blood pressure 2022-08-11 10:00:00 71 mm[Hg] [facility] Heart rate 2022-08-11 10:00:00 70 /min [facility] Respiratory rate 2022-08-11 10:00:00 16 /min [facility] Body weight 2022-08-11 10:00:00 65.499 kg [facility] BMI 2022-08-11 10:00:00 25.58 kg/m2 [facility] Oxygen saturation in Arterial blood by Pulse oximetry 2022-08-11 10:00:00 100 /min [facility] Body height 2022-08-10 22:12:00 160 cm [facility] Systolic blood pressure 2022-04-06 16:00:00 125 mm[Hg] [facility] Diastolic blood pressure 2022-04-06 16:00:00 75 mm[Hg] [facility] Heart rate 2022-04-06 16:00:00 87 [facility] Respiratory rate 2022-04-06 16:00:00 22 /min [facility] Oxygen saturation in Arterial blood by Pulse oximetry 2022-04-06 16:00:00 98 /min [facility] Body temperature 2022-04-06 14:41:00 37 Theresa [facility] Body height 2022-04-06 14:41:00 160 cm [facility] Body weight 2022-04-06 14:41:00 63.504 kg [facility] BMI 2022-04-06 14:41:00 24.80 kg/m2 [facility] Systolic blood pressure 2022-01-20 02:27:00 121 mm[Hg] [facility] Diastolic blood pressure 2022-01-20 02:27:00 75 mm[Hg] [facility] Heart rate 2022-01-20 02:27:00 79 /min [facility] Respiratory rate 2022-01-20 02:27:00 12 /min [facility] Oxygen saturation in Arterial blood by Pulse oximetry 2022-01-20 02:27:00 98 /min [facility] Body temperature 2022-01-19 22:19:00 36.44 Theresa [facility] Body weight 2022-01-19 22:19:00 60.328 kg [facility] BMI 2022-01-19 22:19:00 23.56 kg/m2 [facility] Systolic blood pressure 2021-12-30 20:52:00 134 mm[Hg] [facility] Diastolic blood pressure 2021-12-30 20:52:00 76 mm[Hg] [facility] Heart rate 2021-12-30 20:52:00 67 /min [facility] Body temperature 2021-12-30 20:26:00 36.67 Theresa [facility] Oxygen saturation in Arterial blood by Pulse oximetry 2021-12-30 20:26:00 99 /min [facility] Respiratory rate 2021-12-30 16:21:00 18 /min [facility] Body weight 2021-12-30 08:27:00 60.464 kg [facility] BMI 2021-12-30 08:27:00 23.61 kg/m2 [facility] Body height 2021-12-29 01:29:00 160 cm [facility] Procedures Procedure Date / Time Performed Performing Clinician Source XR CHEST 1 VW 2023-11-05 20:09:00 Sulaiman Hawkins [facility] LIPASE 2023-11-05 20:01:[address] [facility] MAGNESIUM 2023-11-05 20:01:[address] [facility] TROPONIN I 2023-11-05 20:01:00 Singer Sulaiman [facility] COMP. METABOLIC PANEL ([id number]) 2023-11-05 20:01:00 Singer [facility] CBC WITH DIFF 2023-11-05 20:01:00 Singer [facility] N-TERMINAL PRO-BNP 2023-11-05 20:01:00 Singer [facility] MAGNESIUM 2022-11-11 19:05:00 Jessica [facility] BASIC METABOLIC PANEL (NA, K, CL, CO2, GLUCOSE, BUN, CREATININE, CA) 2022-11-11 19:05:00 Jessica [facility] ETHANOL 2022-11-11 19:05:00 Jessica [facility] CBC WITH DIFF 2022-11-11 19:05:00 Jessica [facility] POCT GLUCOSE (AUTOMATED) 2022-08-11 13:36:00 Arvind Prado [facility] PHOSPHORUS 2022-08-11 10:35:00 [facility] 2022-08-11 10:35:00 Eve [facility] AMMONIA, PLASMA 2022-08-11 10:35:00 [facility]. METABOLIC PANEL ([id number]) 2022-08-11 10:35:00 Jessica Prado [facility] CBC WITH DIFF 2022-08-11 10:35:00 Oswald Murphy [facility] POCT GLUCOSE (AUTOMATED) 2022-08-11 02:15:00 Arvind Prado [facility] POCT GLUCOSE (AUTOMATED) 2022-08-10 23:10:00 Arvind Prado [facility] POCT GLUCOSE (AUTOMATED) 2022-08-10 18:20:00 Arvind Prado [facility] POCT GLUCOSE (AUTOMATED) 2022-08-10 14:11:00 Arvind Prado [facility] POCT GLUCOSE (AUTOMATED) 2022-08-10 10:59:00 Gopal Driscoll [facility] COVID-19 (ID NOW RAPID TESTING) 2022-08-10 07:17:00 Rayray Driscoll [facility] LAB ONLY COVID INTERPRETATION 2022-08-10 07:17:00 Rayray Driscoll [facility] HB ECG ROUTINE & RHYTHM STRIP 2022-08-10 06:03:48 Rayray Driscoll [facility] URINALYSIS 2022-08-10 05:46:[address] [facility] URINE DRUG (IMMUNOASSAY) - COMPREHENSIVE DRUG SCREEN W/O REFLEX 2022-08-10 05:45:00 Rayray Driscoll [facility] CREATINE KINASE 2022-08-10 05:16:00 [facility] 2022-08-10 05:16:[address] [facility] MAGNESIUM 2022-08-10 05:16:00 Rayray Driscoll [facility] TROPONIN I 2022-08-10 05:16:00 Rayray Driscoll [facility] COMP. METABOLIC PANEL ([id number]) 2022-08-10 05:16:00 Rayray Driscoll [facility] ETHANOL 2022-08-10 05:16:00 Rayray Driscoll [facility] CBC WITH DIFF 2022-08-10 05:16:00 Rayray Driscoll [facility] N-TERMINAL PRO-BNP 2022-08-10 05:16:00 Rayray Driscoll [facility] CRITICAL CARE 2022-08-10 04:52:00 Rayray Driscoll [facility] XR CHEST 1 VW 2022-04-06 14:51:50 [facility] 2022-04-06 14:42:00 Diya Chowdhury [facility] TROPONIN I 2022-04-06 14:42:00 Diya Chowdhury [facility] COMP. METABOLIC PANEL ([id number]) 2022-04-06 14:42:00 Diya Chowdhury [facility] CBC WITH DIFF 2022-04-06 14:42:00 [facility] PR[facility] / INR 2022-04-06 14:42:00 Diya Chowdhury [facility] ACTIVATED PARTIAL THRMPLAS NELDA 2022-04-06 14:42:00 Diya Chowdhury [facility] LACTIC ACID WHOLE BLOOD 2022-01-20 00:22:00 Leticia Baldwin [facility] URINE DRUG (IMMUNOASSAY) - COMPREHENSIVE DRUG SCREEN 2022-01-19 23:10:00 Leticia Baldwin [facility] URINALYSIS 2022-01-19 23:10:[address] [facility] TROPONIN I 2022-01-19 23:00:[address] [facility] COMP. METABOLIC PANEL ([id number]) 2022-01-19 23:00:00 Leticia Baldwin [facility] LITHIUM 2022-01-19 23:00:[address] [facility] ETHANOL 2022-01-19 23:00:[address] [facility] CBC WITH DIFF 2022-01-19 23:00:00 Leticia Baldwin [facility] COVID-19 (ID NOW RAPID TESTING) 2022-01-19 23:00:00 Leticia Baldwin [facility] CT HEAD WO CONTRAST 2022-01-19 22:49:00 Leticia Bladwin [facility] XR CHEST 1 VW 2022-01-19 22:41:00 Leticia Baldwin [facility] POCT GLUCOSE (AUTOMATED) 2022-01-19 22:25:00 Leticia Baldwin [facility] POCT GLUCOSE (AUTOMATED) 2021-12-30 21:55:00 Arvind Prado [facility] POCT GLUCOSE (AUTOMATED) 2021-12-30 16:21:00 Arvind Prado [facility] POCT GLUCOSE (AUTOMATED) 2021-12-30 12:30:00 Arvind Prado [facility] HEPATIC FUNCTION PANEL ([id number]) (ALB,T.PRO,BILI T,BU/BC,ALT,AST,ALK PHOS) 2021-12-30 09:28:00 Maira Gaitan [facility] POCT GLUCOSE (AUTOMATED) 2021-12-30 02:11:00 Arvind Prado [facility] POCT GLUCOSE (AUTOMATED) 2021-12-29 21:41:00 Arvind Prado [facility] POCT GLUCOSE (AUTOMATED) 2021-12-29 16:37:00 Arvind Prado gregoria [facility] TRANSTHORACIC ECHO (TTE) COMPLETE W/ CONTRAST 2021-12-29 13:05:00 Jessica Prado [facility] POCT GLUCOSE (AUTOMATED) 2021-12-29 12:41:00 Arvind Prado [facility] TROPONIN I 2021-12-29 09:42:00 Eve [facility] TROPONIN I 2021-12-29 04:55:00 Jessica Prado [facility] CT HEAD WO CONTRAST 2021-12-28 21:18:22 Poppy Renteria [facility] AMMONIA, PLASMA 2021-12-28 21:00:00 Pia Renteria [facility] COVID-19 (ID NOW RAPID TESTING) 2021-12-28 20:42:00 Pia Renteria [facility] LAB ONLY COVID INTERPRETATION 2021-12-28 20:42:00 Pia Renteria [facility] URINE DRUG (IMMUNOASSAY) - COMPREHENSIVE DRUG SCREEN W/O REFLEX 2021-12-28 20:42:00 Pia Renteria [facility] URINALYSIS 2021-12-28 20:40:00 Pia Renteria [facility] N-TERMINAL PRO-BNP 2021-12-28 20:40:00 Corina Renteria [facility] TROPONIN I 2021-12-28 20:40:00 Pia Renteria [facility] THYROID STIMULATING HORMONE 2021-12-28 20:40:00 Jessica Prado [facility] COMP. METABOLIC PANEL ([id number]) 2021-12-28 20:40:00 Pia Renteria [facility] LIPID PANEL ([id number])(TOTAL CHOLESTEROL, TRIGLYCERIDES, HDL) 2021-12-28 20:40:00 Demetrius Langford [facility] ETHANOL 2021-12-28 20:40:00 Demetrius Langford [facility] CBC WITH DIFF 2021-12-28 20:40:00 Pia Renteria [facility] GLYCOSYLATED HEMOGLOBIN (A1C) 2021-12-28 20:40:00 Jessica Prado [facility] PROTHROMBIN TIME / INR 2021-12-28 20:40:00 Lesly Renteria [facility] XR CHEST 1 VW 2021-12-28 20:16:00 Pia Renteria [facility] HB ECG ROUTINE & RHYTHM STRIP 2021-12-28 20:04:59 Pia Renteria [facility] Encounters Start Date/Time End Date/Time Encounter Type Admission Type Attending [facility] Facility Care Department Encounter ID Source 2021-09-17 16:45:00 Inpatient [facility] [id number] [facility] 2020-06-06 16:07:00 Inpatient [facility] [id number] [facility] 2020-06-06 06:20:00 Inpatient [facility] [id number] [facility] 2020-06-05 19:35:00 Inpatient [facility] [id number] [facility] 2020-05-23 19:53:00 Inpatient [facility] [id number] [facility] 2020-05-23 19:53:00 Inpatient [facility] [id number] [facility] 2023-11-05 14:54:00 2023-11-05 16:27:00 Emergency Sulaiman Hawkins [facility] 1.2.840.114 350.1.13.10 4.2.7.2.686 [id number] [facility] 2022-11-11 13:50:00 2022-11-11 16:07:00 Emergency X HEMANT KLEIN [facility] [[email or web address]] ERT [id number] [facility] 2022-11-11 13:50:00 2022-11-11 16:07:00 Emergency Hemant Klein [facility] 1.2.840.114 350.1.13.10 4.2.7.2.686 [id number] [facility] 2022-10-14 20:59:00 2022-10-14 20:59:00 Emergency [facility] [id number] [facility] 2022-10-14 20:59:00 2022-10-14 20:59:00 Emergency Emergency Pan Pinto [facility] [id number] [facility] 2022-08-09 22:59:00 2022-08-11 13:02:00 Outpatient X JESSICA PRADO [facility] [[email or web address]] MARGO [id number] [facility] 2022-08-09 22:59:00 2022-08-11 13:02:00 Emergency Rayray Driscoll Jelani Edionwe [facility] 1.2.840.114 350.1.13.10 4.2.7.2.686 [id number] [facility] 2022-04-06 09:38:00 2022-04-06 11:42:00 Emergency X DIYA CHOWDHURY [facility] [[email or web address]] ERT [id number] [facility] 2022-04-06 09:38:00 2022-04-06 11:42:00 Emergency EnrikemarianneDiya nelson [facility] 1.2.840.114 350.1.13.10 4.2.7.2.686 [id number] [facility] 2022-03-07 12:38:00 2022-03-07 12:38:00 Emergency [facility] [id number] [place] [address] 2022-03-07 12:38:00 2022-03-07 12:38:00 Emergency Emergency Fidel Cuellar [facility] [id number] [facility] 2022-01-19 17:18:00 2022-01-19 22:00:00 Emergency X DIRK YARBROUGH [facility] [[email or web address]] ERT [id number] [facility] 2022-01-19 17:18:00 2022-01-19 22:00:00 Emergency NicolasaLeticia vega Julio C [facility] 1.2.840.114 350.1.13.10 4.2.7.2.686 [id number] [facility] 2021-12-31 00:00:00 2021-12-31 00:00:00 Transition of Care PortilloFaye martinMarlon MASSIEL NAVARRO 1.2.840.114 350.1.13.10 4.2.7.2.686 [id number] [facility] 2021-12-28 14:53:00 2021-12-30 17:42:00 Inpatient X JESSICA PRADO [facility] [[email or web address]] MARGO [id number] [facility] 2021-12-28 14:53:00 2021-12-30 17:42:00 Hospital Encounter Pia Renteria Jelani [facility] 1.2.840.114 350.1.13.10 4.2.7.2.686 [id number] [facility] 2021-09-17 16:47:00 2021-09-17 16:47:00 Emergency [facility] [id number] [facility] 2020-06-06 16:07:00 2020-06-06 16:07:00 Emergency [facility] [id number] [facility] Results Test Description Test Time [...] CONCLUSIONS: No signs of acute cardiopulmonary disease. [facility] ETHANOL 2022-10-21 3 19:45:56 ALCOHOL<10mg/dL11/11 2:45 PM [facility]<10 Hhjjdadj85-090 Toxic>100 Depression of GENERAL FREIGHT AGENT>400 [facility] 19:41:47* Test Item Value Reference Range Interpretation Comme nts MAGNESIUM (test code = 4395016667) 1.8 mg/dL 1.7-2.4 Lab Interpretation (test cod e = 52002-2) [facility] [id number] 19:25:26* Test Item Value Reference Range Interpretation Comme nts WBC (test code = 6690-2) 6.82 See_Comment [Automated [employer]] The system which generated this result transmitted reference range: 4.20 - 10.70 10*3/?L. The reference range was not used to interpret this result as normal/abnormal. RBC (test code = 789-8) 4.98 See_Comment [Automated [employer]] The system which generated this result transmitted [...] 33.9 g/dL 31.2-35.0 RDW-SD (test code = 55552-2) 46.0 fL 38.5-51.6 RDW-CV (test code = 788-0) 13.5 % 12.1-15.4 PLT (test code = 777-3) 237 See_Comment [Automated messa ge] The system which generated this result transmitted reference range: 150 - 328 10*3/?L. The reference range was not used to interpret this result as normal/abnormal. MPV (test code = 77611-8) 8.9 fL 9.8-13.0 L NRBC/100 WBC (test code = 9406374044) 0.0 See_Comment [Automated me ssage] The system which generated this result transmitted reference range: 0.0 - 10.0 /100 WBCs. The reference range was not used to interpret this result as normal/abnormal. NRBC x10^3 (test code = 2787304282) See_Comment [Automated messa ge] The system which generated this result transmitted reference range: 10*3/?L. The reference range was not used to interpret this result as normal/abnormal. GRAN MAT (NEUT) % (test code = 770-8) 71.2 % IMM GRAN % (test code = 8598776471) 0.30 % LYMPH % (test code = 736-9) 18.2 % MONO % (test code = 5905-5) 8.4 % EOS % (test code = 713-8) 1.0 % BASO % (test code = 706-2) 0.9 % GRAN MAT x10^3(ANC) (test code = 7829635895) 4.86 10*3/uL 1.99-6.95 IMM GRAN x10^3 (test code = 7114262515) 0.00-0.06 LYMPH x10^3 (test code = 731-0) 1.24 10*3/uL 1.09-3.23 MONO x10^3 (test code = 742-7) 0.57 10*3/uL 0.36-1.02 EOS x10^3 (test code = 711-2) 0.07 10*3/uL 0.06-0.53 BASO x10^3 (test code = 704-7) 0.06 10*3/uL 0.01-0.09 Lab Interpretation (test code = 68755-3) [facility] Rflx Cult/Tfcxg2926-50-93 22:20:00* Test Item Value Reference Range Interpretation Comme nts Color,Urine (test code = UCOL) Yellow Yellow Clarity,Urine (test code = UCLAR) Clear Clear Ph, Urine (test code = UPH) 7.0 5.0-9.0 N Specific [place],Urine (test code = USG) 1.020 1.005-1.030 N [...] code = ULEU) Negative mg/dL Negative Drug Screen,Dldwj5181-45-08 22:20:00* Test Item Value Reference Range Interpretation [...] UPROP) Negative Negative Complete Blood Count Auto Xvkx6474-99-75 21:21:00* Test Item Value Reference Range Interpretation [...] code = NRBCP) 0 % Comprehensive Metabolic Xfpas2564-32-72 21:21:00* Test Item Value Reference Range Interpretation [...] a race coefficient. Additional information canbe found at:[email or web address] 5.pdf ([email or web address]) [Automated message] The system [...] = ALP) 134 U/L 46-116 H Ethanol Djxix2019-03-98 21:21:00* Test Item Value Reference Range Interpretation Comme nts Ethanol (test code = ETOH) < 3 mg/dL The pharmacologi yudy response to blood alcohol levels mayvary from individual to individual. The fatal concentrationhas been reported to be >400mg/dL. POCT GLUCOSE (AUTOMATED)2022-08-11 13:40:35* Test Item Value Reference Range Interpretation Comme nts POCT GLU (test code = 9748582625) 121 mg/dL 70-110 H Lab Interpretation (test cod e = 74232-5) Abnormal [facility] GLUCOSE (AUTOMATED)2022-08-11 02:18:58* Test Item Value Reference Range Interpretation Comme nts POCT GLU (test code = 3413349584) 183 mg/dL 70-110 H Lab Interpretation (test cod e = 77869-8) Abnormal [facility] GLUCOSE (AUTOMATED)2022-08-10 23:16:11* Test Item Value Reference Range Interpretation Comme nts POCT GLU (test code = 1663677040) 176 mg/dL 70-110 H Lab Interpretation (test cod e = 33419-5) Abnormal [facility] GLUCOSE (AUTOMATED)2022-08-10 18:22:51* Test Item Value Reference Range Interpretation Comme nts POCT GLU (test code = 2641836649) 165 mg/dL 70-110 H Lab Interpretation (test cod e = 17022-5) Abnormal [facility] GLUCOSE (AUTOMATED)2022-08-10 14:18:05* Test Item Value Reference Range Interpretation Comme nts POCT GLU (test code = 5303651029) 138 mg/dL 70-110 H Lab Interpretation (test cod e = 97251-0) Abnormal [facility] GLUCOSE (AUTOMATED)2022-08-10 11:01:21* Test Item Value Reference Range Interpretation Comme nts POCT GLU (test code = 9653142764) 143 mg/dL 70-110 H Lab Interpretation (test cod e = 96614-7) Abnormal [facility] [id number] 06:51:18* Test Item Value Reference Range Interpretation Comme nts TROPONIN I (test code = 7131330458) 0.008 ng/mL <=0.034 JUAN ALBERTO (test code [...] of biotin. Lab Interpretation (test code = 78527-1) Normal [facility] HospitalN-TERMINAL HBJ-[id number] 06:47:37* Test Item Value Reference Range Interpretation Comme nts NT-proBNP (test code = 5314716402) 37 pg/mL <=125 JUAN ALBERTO (test code = JUAN ALBERTO) Biotin has been reported to cause a negative bias, interpret results relative to patient's use of biotin. Lab Interpretation (test code = 85783-7) Normal [facility]2023-[facility] 06:25:52 ALCOHOL<10mg/dL08/10/2022 12:[facility] Vpgyedbn57-587 Toxic>100 Depression of GENERAL FREIGHT AGENT>400 [facility] METABOLIC PANEL (82353)2022-08-10 06:19:15* Test Item Value Reference Range Interpretation Comme nts NA (test code = 1661160831) 135 mmol/L 135-145 K (test code = 7860645795) 4.3 mmol/L 3.5-5.0 CL (test code = 7182305118) 98 mmol/L 98-108 CO2 TOTAL (test code = 7088277518) 30 mmol/L 23-31 AGAP (test code = 2294072815) 7 2-16 BUN (test code = 9159369856) 11 mg/dL 7-23 GLUCOSE (test code = 0705751390) 153 mg/dL 70-110 H CREATININE (test code = 8787818526) 0.77 mg/dL 0.60-1.25 TOTAL BILI (test code = 8003785891) 0.9 mg/dL 0.1-1.1 CALCIUM (test code = 3701983326) 10.0 mg/dL 8.6-10.6 T PROTEIN (test code = 3690379411) 7.7 g/dL 6.3-8.2 ALBUMIN (test code = 4694012411) 4.6 g/dL 3.5-5.0 ALK PHOS (test code = 6646116401) 92 U/L 34-122 ALTv (test code = 1742-6) 35 U/L 5-50 AST(SGOT) (test code = 5460496478) 42 U/L 13-40 H eGFR (test code = 8217375163) 106.1 mL/min/1.73m2 JUAN ALBERTO (test code = [...] imaging tests). Lab Interpretation (test code = 93391-9) [facility] 06:19:15* Test Item Value Reference Range Interpretation Comme nts MAGNESIUM (test code = 8885469290) 2.2 mg/dL 1.7-2.4 Lab Interpretation (test cod e = 37484-7) Normal [facility]ASE2023-[facility] 06:18:55* Test Item Value Reference Range Interpretation Comme nts LIPASE (test code = 8801912339) 18 U/L 0-220 Lab Interpretation (test cod e = 72331-6) Normal [facility] HospitalCREATINE [id number] 06:18:55* Test Item Value Reference Range Interpretation Comme nts CK (test code = 9876616205) 174 U/L 33-194 Lab Interpretation (test cod e = 74630-6) Normal [facility] WITH [id number] 06:02:35* Test Item Value Reference Range Interpretation [...] 32.4 g/dL 31.2-35.0 RDW-SD (test code = 47646-7) 50.2 fL 38.5-51.6 RDW-CV (test code = 788-0) 14.3 % 12.1-15.4 PLT (test code = 777-3) 241 See_Comment [Automated messa ge] The system which generated this result transmitted reference range: 150 - 328 10*3/?L. The reference range was not used to interpret this result as normal/abnormal. MPV (test code = 17930-9) 8.6 fL 9.8-13.0 L NRBC/100 WBC (test code = 5302649748) 0.0 See_Comment [Automated me ssage] The system which generated this result transmitted reference range: 0.0 - 10.0 /100 WBCs. The reference range was not used to interpret this result as normal/abnormal. NRBC x10^3 (test code = 1169597826) See_Comment [Automated messa ge] The system which generated this result transmitted reference range: 10*3/?L. The reference range was not used to interpret this result as normal/abnormal. GRAN MAT (NEUT) % (test code = 770-8) 63.9 % IMM GRAN % (test code = 6687428090) 0.50 % LYMPH % (test code = 736-9) 17.6 % MONO % (test code = 5905-5) 16.5 % EOS % (test code = 713-8) 0.7 % BASO % (test code = 706-2) 0.8 % GRAN MAT x10^3(ANC) (test code = 4171637970) 4.79 10*3/uL 1.99-6.95 IMM GRAN x10^3 (test code = 5722351543) 0.04 10*3/uL 0.00-0.06 LYMPH x10^3 (test code = 731-0) 1.32 10*3/uL 1.09-3.23 MONO x10^3 (test code = 742-7) 1.24 10*3/uL 0.36-1.02 H EOS x10^3 (test code = 711-2) 0.05 10*3/uL 0.06-0.53 L BASO x10^3 (test code = 704-7) 0.06 10*3/uL 0.01-0.09 Lab Interpretation (test code = 64693-1) Abnormal [facility] HospitalGERMANIA [id number] 15:15:32* Test Item Value Reference Range Interpretation Comments TROPONIN I (test code = 9938901394) 0.007 ng/mL See_Comment [Automated message] The system [...] of biotin. Lab Interpretation (test code = 26078-7) Normal [facility] HospitalaPTT2022-10-16 15:08:29* Test Item Value Reference [...] 30 seconds. Lab Interpretation (test code = 53729-0) Normal [facility] HospitalPROTHROMBIN TIME / [id number] 15:06:28* Test Item Value Reference Range Interpretation [...] the indications. Lab Interpretation (test code = 00046-7) Normal [facility] HospitalCOMP. METABOLIC PANEL (93574)2022-04-06 15:03:31* Test Item Value Reference Range Interpretation Comme [facility] NA (test code = 9025644992) 136 mmol/L 135-145 K (test code = 3387982722) 5.0 mmol/L 3.5-5 CL (test code = 7648950375) 104 mmol/L 98-108 CO2 TOTAL (test code = 4444556145) 21 mmol/L 23-31 L AGAP (test code = 8936059781) 2-16 BUN (test code = 3986366117) 11 mg/dL 7-23 GLUCOSE (test code = 9380712635) 162 mg/dL 70-110 H CREATININE (test code = 7527488893) 0.52 mg/dL 0.6-1.25 L TOTAL BILI (test code = 9169002349) 1.0 mg/dL 0.1-1.1 CALCIUM (test code = 7853548649) 9.3 mg/dL 8.6-10.6 T PROTEIN (test code = 2551205469) 7.4 g/dL 6.3-8.2 ALBUMIN (test code = 6430181664) 4.4 g/dL 3.5-5 ALK PHOS (test code = 4954431550) 134 U/L 34-122 H ALTv (test code = 1742-6) 17 U/L 5-50 AST(SGOT) (test code = 2555750307) 38 U/L 13-40 eGFR (test code = 7914208994) mL/min/1.73m2 JUAN ALBERTO (test code = JUAN [...] imaging tests). Lab Interpretation (test code = 49045-8) Abnormal [facility] HospitalLIPASE, [id number] 15:03:31* Test Item Value Reference Range Interpretation Comme nts LIPASE (test code = 2902407786) 29 U/L 0-220 Lab Interpretation (test cod e = 92806-1) Normal [facility] HospitalCBC WITH [id number] 14:51:49* Test Item Value Reference Range Interpretation Comme nts WBC (test code = 6690-2) See_Comment [Automated [employer]] The system which generated this result transmitted reference range: 4.20 - 10.70 10*3/?L. The reference range was not used to interpret this result as normal/abnormal. RBC (test code = 789-8) See_Comment [Automated [employer]] The system which generated this result transmitted [...] 34.0 g/dL 31.2-35 RDW-SD (test code = 95072-3) 45.9 fL 38.5-51.6 RDW-CV (test code = 788-0) 13.3 % 12.1-15.4 PLT (test code = 777-3) See_Comment [Automated [employer]] The system which generated this result transmitted reference range: 150 - 328 10*3/?L. The reference range was not used to interpret this result as normal/abnormal. MPV (test code = 36444-8) 8.4 fL 9.8-13 L NRBC/100 WBC (test code = 0776056798) See_Comment [Automated me ssage] The system which generated this result transmitted reference range: 0.0 - 10.0 /100 WBCs. The reference range was not used to interpret this result as normal/abnormal. NRBC x10^3 (test code = 8661646058) See_Comment [Automated messa ge] The system which generated this result transmitted reference range: 10*3/?L. The reference range was not used to interpret this result as normal/abnormal. GRAN MAT (NEUT) % (test code = 770-8) 63.0 % IMM GRAN % (test code = 4158279834) 0.50 % LYMPH % (test code = 736-9) 25.2 % MONO % (test code = 5905-5) 9.8 % EOS % (test code = 713-8) 0.3 % BASO % (test code = 706-2) 1.2 % GRAN MAT x10^3(ANC) (test code = 5402431252) 3.73 10*3/uL 1.99-6.95 IMM GRAN x10^3 (test code = 3447568669) 0.03 10*3/uL 0-0.06 LYMPH x10^3 (test code = 731-0) 1.49 10*3/uL 1.09-3.23 MONO x10^3 (test code = 742-7) 0.58 10*3/uL 0.36-1.02 EOS x10^3 (test code = 711-2) 0.06-0.53 L BASO x10^3 (test code = 704-7) 0.07 10*3/uL 0.01-0.09 Lab Interpretation (test code = 18222-2) Abnormal [facility], Urinalysis Rflx Cult/Qzwsy4092-28-27 13:53:00* Test Item Value Reference Range Interpretation Comme nts Color,Urine (test code = UCOL) Yellow Yellow Clarity,Urine (test code = UCLAR) Cloudy Clear A Ph, Urine (test code = UPH) 7.5 5.0-9.0 N Specific [place],Urine (test code = USG) 1.025 1.005-1.030 N [...] = ULEU) Negative mg/dL Negative UF REFLEXDrug Screen,Yywph0297-70-91 13:53:00* Test Item Value Reference Range Interpretation [...] UPROP) Negative Negative Complete Blood Count Auto [id number] 12:58:00* Test Item Value Reference Range Interpretation [...] = NRBCP) 0 % Coronavirus PCR, COVID19 Xhwvv6182-69-68 12:58:00* Test Item Value Reference Range Interpretation Comme nts Coronavirus PCR, COVID19 Rapid (test code = SARSCOV2) Coronavirus PCR, COVID19 Rapid (test code = JQYDRGD98.1) Reference Range: Negative SARS-CoV-2 PCR Result: (test code = SARS-CoV-2 PCR Result:) Negative by RT-PCR COVID-19 Status: AsymptomaticComprehensive Metabolic Udaza5214-83-85 12:58:00* Test Item Value Reference Range Interpretation [...] = ALP) 144 U/L 46-116 H Ethanol Goaus4613-85-33 12:58:00* Test Item Value Reference Range Interpretation Comme nts Ethanol (test code = ETOH) < 3 mg/dL The pharmacologi yudy response to blood alcohol levels mayvary from individual to individual. The fatal concentrationhas been reported to be >400mg/dL. ELNJXTM8419-01-96 01:47:56* Test Item Value Reference Range Interpretation Comme nts Panacea (test code = 0088098695) 0.7 mmol/L 0.6-1.2 JUAN ALBERTO (test code = JUAN ALBERTO) Toxic Range: ? Greater than 1.2 mmol/L Lab Interpretation (test code = 79347-1) Normal [facility] HospitalTROPONIN [id number] 00:26:53* Test Item Value Reference Range Interpretation Comments TROPONIN I (test code = 4927941306) 0.002 ng/mL See_Comment [Automated message] The system [...] of biotin. Lab Interpretation (test code = 67633-1) Normal [facility] HospitalETHANOL2022-08-01 00:18:52 ALCOHOL<10mg/dL01/19/2022 7:18 PM [facility] Mvnujvoo23-425 Toxic>100 Depression of GENERAL FREIGHT AGENT>400 Fatalities [facility]UnB[facility] IrvingCOMP. METABOLIC PANEL (79279)2022-01-20 00:16:16* Test Item Value Reference Range Interpretation Comme nts NA (test code = 7490202986) 137 mmol/L 135-145 K (test code = 1733503004) 4.5 mmol/L 3.5-5 CL (test code = 1350206208) 103 mmol/L 98-108 CO2 TOTAL (test code = 9741351991) 26 mmol/L 23-31 AGAP (test code = 0402945857) 2-16 BUN (test code = 4390291235) 10 mg/dL 7-23 GLUCOSE (test code = 2924881171) 121 mg/dL 70-110 H CREATININE (test code = 4700431527) 0.65 mg/dL 0.6-1.25 TOTAL BILI (test code = 6573616970) 0.8 mg/dL 0.1-1.1 CALCIUM (test code = 3499525111) 11.4 mg/dL 8.6-10.6 H T PROTEIN (test code = 3368647030) 7.2 g/dL 6.3-8.2 ALBUMIN (test code = 6093530528) 4.6 g/dL 3.5-5 ALK PHOS (test code = 4716283024) 112 U/L 34-122 ALTv (test code = 1742-6) 19 U/L 5-50 AST(SGOT) (test code = 9395451119) 26 U/L 13-40 eGFR (test code = 1322254297) mL/min/1.73m2 JUAN ALBERTO (test code = JUAN [...] imaging tests). Lab Interpretation (test code = 01291-1) Abnormal [facility] WITH TGPE0417-56-35 23:43:54* Test Item Value Reference Range Interpretation Comme nts WBC (test code = 6690-2) See_Comment [Automated [employer]] The system which generated this result transmitted reference range: 4.20 - 10.70 10*3/?L. The reference range was not used to interpret this result as normal/abnormal. RBC (test code = 789-8) See_Comment [Automated [employer]] The system which generated this result transmitted [...] 34.4 g/dL 31.2-35 RDW-SD (test code = 76612-9) 44.0 fL 38.5-51.6 RDW-CV (test code = 788-0) 12.6 % 12.1-15.4 PLT (test code = 777-3) See_Comment [Automated [employer]] The system which generated this result transmitted reference range: 150 - 328 10*3/?L. The reference range was not used to interpret this result as normal/abnormal. MPV (test code = 56402-4) 9.1 fL 9.8-13 L NRBC/100 WBC (test code = 2260738745) See_Comment [Automated me ssage] The system which generated this result transmitted reference range: 0.0 - 10.0 /100 WBCs. The reference range was not used to interpret this result as normal/abnormal. NRBC x10^3 (test code = 8966661917) See_Comment [Automated messa ge] The system which generated this result transmitted reference range: 10*3/?L. The reference range was not used to interpret this result as normal/abnormal. GRAN MAT (NEUT) % (test code = 770-8) 69.8 % IMM GRAN % (test code = 9377599694) 0.40 % LYMPH % (test code = 736-9) 18.0 % MONO % (test code = 5905-5) 10.9 % EOS % (test code = 713-8) 0.1 % BASO % (test code = 706-2) 0.8 % GRAN MAT x10^3(ANC) (test code = 6301750408) 5.58 10*3/uL 1.99-6.95 IMM GRAN x10^3 (test code = 5357110006) 0.03 10*3/uL 0-0.06 LYMPH x10^3 (test code = 731-0) 1.44 10*3/uL 1.09-3.23 MONO x10^3 (test code = 742-7) 0.87 10*3/uL 0.36-1.02 EOS x10^3 (test code = 711-2) 0.06-0.53 L BASO x10^3 (test code = 704-7) 0.06 10*3/uL 0.01-0.09 Lab Interpretation (test code = 45040-1) Abnormal [facility] GLUCOSE (AUTOMATED)2022-01-19 22:27:41* Test Item Value Reference Range Interpretation Comme nts POCT GLU (test code = 1892582467) 123 mg/dL 70-110 H Lab Interpretation (test cod e = 29164-6) Abnormal [facility] GLUCOSE (AUTOMATED)2021-12-30 22:08:16* Test Item Value Reference Range Interpretation Comme nts POCT GLU (test code = 7274188510) 167 mg/dL 70-110 H Lab Interpretation (test cod e = 42122-5) Abnormal [facility] GLUCOSE (AUTOMATED)2021-12-30 16:50:40* Test Item Value Reference Range Interpretation Comme nts POCT GLU (test code = 2534897045) 154 mg/dL 70-110 H Lab Interpretation (test cod e = 54647-3) Abnormal [facility] GLUCOSE (AUTOMATED)2021-12-30 12:38:43* Test Item Value Reference Range Interpretation Comme nts POCT GLU (test code = [id number]) 164 mg/dL 70-110 H Lab Interpretation (test cod e = 14442-7) Abnormal [facility] GLUCOSE (AUTOMATED)2021-12-30 02:14:58* Test Item Value Reference Range Interpretation Comme nts POCT GLU (test code = [id number]) 220 mg/dL 70-110 H Lab Interpretation (test cod e = 51384-7) Abnormal [facility] GLUCOSE (AUTOMATED)2021-12-29 21:50:02* Test Item Value Reference Range Interpretation Comme nts POCT GLU (test code = [id number]) 191 mg/dL 70-110 H Lab Interpretation (test cod e = 63018-0) Abnormal [facility] GLUCOSE (AUTOMATED)2021-12-29 20:15:01* Test Item Value Reference Range Interpretation Comme nts POCT GLU (test code = [id number]) 163 mg/dL 70-110 H Lab Interpretation (test cod e = 85506-2) Abnormal [facility] ([facility])2021-12-29 19:12:22* Test Item Value Reference Range Interpretation Comme nts Height (test code = 2228841493) in Weight (test code = 2499747398) lbs Systolic BP (test code = 8231420510) mmHg Diastolic BP (test code = 2587516077) mmHg Heart Rate (test code = 0211003845) bpm BSA (test code = 4449909588) 1.62 m2 Ao root annulus (test code = 9232178985) 2.45 cm Ao root diam (test code = 2780410317) 2.45 cm Aortic root (test code = 3099889508) 2.45 cm ACS (test code = 8160619875) 1.66 cm LA size (test code = 3073409956) 3.2 cm LVOT diameter (test code = 4059128254) 1.95 cm LVIDD (test code = 4723032712) 3.60 cm IVS (test code = 7987442449) 0.94 cm Interventricular Septum Diastolic Thickness by 2D (test code = 7758432) 0.94 cm LVPWD (test code = 6901939830) 0.80 cm PW (test code = 3401458876) 0.80 cm 0.6-1.1 EF(Teich) (test code = 9020294944) 52.80 % LVIDS (test code = 4612791424) 2.60 cm FS (test code = 3876833160) 27 % EF - 2D (test code = 46700515) 52.80 % LAV(MOD-sp4) (test code = 2178678599) 16.80 mL MV Peak E Jovany (test code = 7722295604) 46.1 cm/s E wave decelartion time (test code = 5591841551) 0.31 s MV Peak A Jovany (test code = 6971972344) 58.1 cm/s E/A ratio (test code = 3062526645) ratio MV E/e' septal (test code = 2242662894) 5.7 cm/s Tapse (test code = 1938469061) 1.60 cm LVOT stroke volume (test code = 1696666054) 52.10 cm3 LVOT peak jovany (test code = 6460530811) 110.6 cm/s LVOT mn grad (test code = 9540767249) mmHg AV LVOT peak gradient (test code = 5854357400) mmHg LVOT peak VTI (test code = 4051359015) 17.4 cm LV V1 mean (test code = 9261319682) 66.10 cm/s Aortic valve mean velocity (test code = 7319626631) 73.0 cm/s Ao peak jovany (test code = 9411424975) 124.6 cm/s Ao VTI (test code = 6038498476) 18.6 cm AV area by cont VTI (test code = 8853483545) 2.8 cm2 AV area peak jovany (test code = 6127298341) 2.7 cm2 Ao max PG (test code = 4661683145) 6.20 mm[Hg] AV peak gradient (test code = 7529681914) mmHg AV valve area (test code = 5188617198) 2.80 cm2 AV mean gradient (test code = 9969941819) mmHg Radiology Study observation (narrative) (test code = 39060-2) JUAN ALBERTO (test code = JUAN ALBERTO) [...] mL of Lumason ultrasound enhancing agent used. [facility]ATED)2021-12-29 12:50:31* Test Item Value Reference Range Interpretation Comme nts POCT GLU (test code = 3167290060) 141 mg/dL 70-110 H Lab Interpretation (test cod e = 89620-5) Abnormal [facility] HospitalTroponin R5493-66-43 10:38:31* Test Item Value Reference Range Interpretation Comments TROPONIN I (test code = 9354645102) 0.003 ng/mL See_Comment [Automated message] The system [...] of biotin. Lab Interpretation (test code = 44126-7) Normal [facility] HospitalLIPID PANEL (84137)(TOTAL CHOLESTEROL, TRIGLYCERIDES, HDL)2021-12-29 05:56:47* Test Item Value Reference Range Interpretation Comme nts CHOL (test code = 2358821246) 168 mg/dL 120-200 HDL (test code = 4841082691) 102 mg/dL See_Comment [Automated [employer]] The system which generated this result transmitted reference range: >=40. The reference range was not used to interpret this result as normal/abnormal. HDLC RATIO (test code = 9913392554) See_Comment [Automated [employer]] The system which generated this result transmitted reference range: <=5.0. The reference range was not used to interpret this result as normal/abnormal. TRIG (test code = 0042582506) 55 mg/dL 30-170 LDL CHOL (test code = 48821-1) 55 mg/dL See_Comment [Automated [employer]] The system which generated this result transmitted reference range: <=160. The reference range was not used to interpret this result as normal/abnormal. VLDL (test code = 7052386694) 11 mg/dL 5-60 Lab Interpretation (test code = 43790-2) Normal [facility] HospitalThyroid Stimulating Hormone (TSH)2021-12-29 05:40:29* Test Item Value Reference Range Interpretation Comme nts TSH (test code = 9030538436) See_Comment Biotin has been reported to cause a negative bias, interpret results relative to patient's use of biotin. [Automated message] The system which generated this result transmitted reference range: 0.45 - 4.70 mIU/L. The reference range was not used to interpret this result as normal/abnormal. Lab Interpretation (test code = 04403-7) Normal [facility] B0250-41-05 05:34:29* Test Item Value Reference Range Interpretation Comments TROPONIN I (test code = 7467233059) 0.006 ng/mL See_Comment [Automated message] The system [...] of biotin. Lab Interpretation (test code = 44597-9) Normal [facility] HospitalETHANOL2022-07-10 04:43:01 ALCOHOL<10mg/dL12/28/2021 11:43 PM CDBACK[facility] LABORATORYToxic Greater than or equal to 80 mg/dL. NOTE: Whole blood values are approximately 10% to 15% lower than serum and plasma.[facility] Glycosylated Hemoglobin (A1C)2021-12-29 01:51:44* Test Item Value Reference Range Interpretation Comme nts HGB A1C (test code = 4548-4) 6.5 % 4-5.7 H JUAN ALBERTO (test code = JUAN ALBERTO) Reference RangesNormal: <5.7%Prediabetes: 5.7 - 6.4%Diabetes: > 6.5% Lab Interpretation (test code = 08379-4) Abnormal [facility] [id number] 21:26:50* Test Item Value Reference Range Interpretation Comments TROPONIN I (test code = 3427106410) 0.002 ng/mL See_Comment [Automated message] The system [...] of biotin. Lab Interpretation (test code = 94963-6) Normal [facility] HospitalN-TERMINAL GKP-LEM5101-73-09 21:23:29* Test Item Value Reference Range Interpretation Comme nts NT-proBNP (test code = 0909854508) 41 pg/mL See_Comment [Automated message] The system which generated this result transmitted reference range: <=125. The reference range was not used to interpret this result as normal/abnormal. JUAN ALBERTO (test code = JUAN ALBERTO) Biotin has been reported to cause a negative bias, interpret results relative to patient's use of biotin. Lab Interpretation (test code = 65454-6) Normal [facility] HospitalAMMONIA, CVKURI7897-88-62 21:20:38* Test Item Value Reference Range Interpretation Comme nts AMMONIA (test code = 3183288981) 9-33 L Slight hemolysis Lab Interpretation (test code = 67468-0) Abnormal [facility] HospitalCOMP. METABOLIC PANEL (64950)2021-12-28 21:08:48* Test Item Value Reference Range Interpretation Comme nts NA (test code = 8735599911) 137 mmol/L 135-145 K (test code = 3825659543) 4.5 mmol/L 3.5-5 CL (test code = 9276111836) 97 mmol/L 98-108 L CO2 TOTAL (test code = 4231694710) 29 mmol/L 23-31 AGAP (test code = 3826590324) 2-16 BUN (test code = 4733114270) 10 mg/dL 7-23 GLUCOSE (test code = 5830909790) 188 mg/dL 70-110 H CREATININE (test code = 0573137536) 0.58 mg/dL 0.6-1.25 L TOTAL BILI (test code = 4456783312) 0.8 mg/dL 0.1-1.1 CALCIUM (test code = 2271832351) 10.5 mg/dL 8.6-10.6 T PROTEIN (test code = 8723851051) 7.6 g/dL 6.3-8.2 ALBUMIN (test code = 9760397548) 4.5 g/dL 3.5-5 ALK PHOS (test code = 4226562837) 107 U/L 34-122 ALTv (test code = 1742-6) 66 U/L 5-50 H AST(SGOT) (test code = 6551899331) 96 U/L 13-40 H eGFR (test code = 1489173940) mL/min/1.73m2 JUAN ALBERTO (test code = JUAN [...] imaging tests). Lab Interpretation (test code = 20791-3) Abnormal [facility] HospitalPROTHROMBIN TIME / [id number] 21:01:25* Test Item Value Reference Range Interpretation Comme nts PROTIME PATIENT (test code = 5964-2) See_Comment [Automated [employer]] The system which generated this result transmitted reference range: 12.0 - 14.7 Seconds. The reference range was not used to interpret this result as normal/abnormal. INR (test code = 6301-6) Normal INR <1.1; Warfarin Therapeutic range 2.0 to 3.0 or 2.5 to 3.5, depending upon the indications. Lab Interpretation (test code = 73815-6) Normal [facility] HospitalCBC WITH HJAO3987-00-79 20:54:03* Test Item Value Reference Range Interpretation Comme nts WBC (test code = 6690-2) See_Comment [Automated [employer]] The system which generated this result transmitted reference range: 4.20 - 10.70 10*3/?L. The reference range was not used to interpret this result as normal/abnormal. RBC (test code = 789-8) See_Comment [Automated [employer]] The system which generated this result transmitted [...] 34.2 g/dL 31.2-35 RDW-SD (test code = 74980-7) 47.8 fL 38.5-51.6 RDW-CV (test code = 788-0) 13.3 % 12.1-15.4 PLT (test code = 777-3) See_Comment [Automated messa ge] The system which generated this result transmitted reference range: 150 - 328 10*3/?L. The reference range was not used to interpret this result as normal/abnormal. MPV (test code = 95245-4) 8.6 fL 9.8-13 L NRBC/100 WBC (test code = 6576161469) See_Comment [Automated me ssage] The system which generated this result transmitted reference range: 0.0 - 10.0 /100 WBCs. The reference range was not used to interpret this result as normal/abnormal. NRBC x10^3 (test code = 5771007139) See_Comment [Automated messa ge] The system which generated this result transmitted reference range: 10*3/?L. The reference range was not used to interpret this result as normal/abnormal. GRAN MAT (NEUT) % (test code = 770-8) 64.1 % IMM GRAN % (test code = 4373493367) 0.40 % LYMPH % (test code = 736-9) 16.6 % MONO % (test code = 5905-5) 17.2 % EOS % (test code = 713-8) 0.2 % BASO % (test code = 706-2) 1.5 % GRAN MAT x10^3(ANC) (test code = 2791352825) 3.47 10*3/uL 1.99-6.95 IMM GRAN x10^3 (test code = 7820181155) 0-0.06 LYMPH x10^3 (test code = 731-0) 0.90 10*3/uL 1.09-3.23 L MONO x10^3 (test code = 742-7) 0.93 10*3/uL 0.36-1.02 EOS x10^3 (test code = 711-2) 0.06-0.53 L BASO x10^3 (test code = 704-7) 0.08 10*3/uL 0.01-0.09 Lab Interpretation (test code = 85752-0) Abnormal [facility] HospitalEthanol Nccpg3155-59-88 21:08:00* Test Item Value Reference Range Interpretation Comme nts Ethanol (test code = ETOH) < 3 mg/dL The pharmacologi yudy response to blood alcohol levels mayvary from individual to individual. The fatal concentrationhas been reported to be >400mg/dL. Complete Blood Count Auto Kewm2357-09-94 17:33:00* Test Item Value Reference Range Interpretation [...] = NRBCP) 0 % UA, Urinalysis Rflx Cult/Dfonl8467-87-59 17:33:00* Test Item Value Reference Range Interpretation Comme nts Color,Urine (test code = UCOL) Dark Yellow Yellow A Clarity,Urine (test code = UCLAR) Clear Clear Ph, Urine (test code = UPH) 6.5 5.0-9.0 N Specific [place],Urine (test code = USG) 1.015 1.005-1.030 N [...] = ULEU) Trace mg/dL Negative A Urine Cdtrmillnrc1230-59-06 17:33:00* Test Item Value Reference Range Interpretation Comme nts RBC,Urine (test code = URBCUF) None Seen /HPF 0-2 WBC,Urine (test code = UWBCUF) 0-5 /HPF 0-5 Epithelial Cell,Urine (test code = UECUF) 0-5 /HPF 0-5 Casts,Urine (test code = UCASTUF) None Seen /LPF None Seen Bacteria,Urine (test code = UBACTUF) None Seen /hpf None Seen Drug Screen,Hppqg3448-09-20 17:33:00* Test Item Value Reference Range Interpretation [...] code = UPROP) Negative Negative Comprehensive Metabolic Bgkcg1509-44-92 17:33:00* Test Item Value Reference Range Interpretation [...] 101 U/L 46-116 N Sars-CoV-2/FLU A/B RSV LQV8636-82-30 17:31:00* Test Item Value Reference Range Interpretation [...] SARS-CoV-2 PCR Result:) Negative by RT-PCR Drug Screen,Ziasz8936-25-65 17:20:00* Test Item Value Reference Range Interpretation [...] UPROP) Negative Negative Complete Blood Count Auto Zdha7428-03-20 17:14:00* Test Item Value Reference Range Interpretation [...] code = NRBCP) 0 % Comprehensive Metabolic Herez3895-02-57 17:14:00* Test Item Value Reference Range Interpretation [...] = ALP) 207 U/L 46-116 H Ethanol Jpguf3535-72-83 17:14:00* Test Item Value Reference Range Interpretation Comme nts Ethanol (test code = ETOH) 192 mg/dL Complete Blood Count Auto Vifj5731-40-99 20:20:00* Test Item Value Reference Range Interpretation [...] code = NRBCP) 0 % Comprehensive Metabolic Zwskk5405-39-90 20:20:00* Test Item Value Reference Range Interpretation [...] = ALP) 189 U/L 46-116 H Ethanol Zylqh3221-60-58 20:20:00* Test Item Value Reference Range Interpretation Comme nts Ethanol (test code = ETOH) 10 mg/dL Sars-CoV-2/FLU A/B RSV EDS7456-78-34 20:20:00* Test Item Value Reference Range Interpretation [...] Negative by Nucleic Acid Amplification UA, Urinalysis Hofzvtfnpsa4170-57-51 20:20:00* Test Item Value Reference Range Interpretation Comme nts Color,Urine (test code = UCOL) Yellow Y Clarity,Urine (test code = UCLAR) Clear Clear PH,Urine (test code = UPH.XX) 7.0 5.5-8.5 Specific [place],Urine (test code = USG) 1.020 1.005-1.030 N [...] code = ULEU) Negative cells/uL Negative Drug Screen,Qxqpc1242-81-78 20:20:00* Test Item Value Reference Range Interpretation [...] (test code = UTHCS) Negative RESULT TO [facility] CT head/brain wo [facility] [address] [place] [address] Patient Name: Walt Velazquez Medical Record#: [id number] Address: Homeless City/State/Zip: [place] [address]: Vinnie Navarro MD Phone: Insurance: Self Pay /Age/Sex: 1970/50/M Admit/Reg Date: 09/17/[address]: Vinnie Navarro MD Location: [facility]/ PCP: PcpMd KERWIN Jimenez Date of Service: 09/17/21 Order (s): CT head/brain wo con CPT Code:34664 Report Number: [id number] Reason for Exam: Altered mental status Location [...] for the patient's weight. DLP 822.2mGy-cm. FINDINGS: Thereis no CT evidence of acute infarct. No [...] Notes Date/Time Note Provider Source 2023-11-05 16:26:20 2429-10-61F80:26:20F ormatting of this note might be different [...] apparent distress. No ataxia noted. [facility]. 04984-0Lbskngtdp department VxbcPG2178-48-23J68:26:59[facility] NoteTXT1.2.840.021195.1.13.104.2.7 .2.596186|[id number] for patient msoj47225-9BkheUPBKGWEMMKQFefpoflz d C-CDA narrative [id number] R Potter RN[id number] 73PNUYWIXXQEPNEMUSQKOUNP6403-47-77 T16:26:591.2.840.556017.1.72.3.15| 1.2.840.109154.1.13.104.2.7.2.7278 [id number] Renae Saldivar RN [facility] 2023-11-05 14:56:10 0937-05-50K81:56:10F ormatting of this note might be different from the original.Walt Velazquez Sr. is a 52 year old male arrive via [facility] c/o " throbbing ball in chest" since 0600 has been constant, pt immediately asks for food, 53214-8Ehyfhktnx department Triage uwlsXG8614-35-18H81:00:30[facility] department Triage noteTXT1.2.840.059197.1.13.104.2.7 .2.260791|[id number] for patient gzdo32040-3Wjcfewerp department NoteLNNARRATIVEFormatted C-CDA narrative [id number] M. Barton RN[address] Yn[id number] 55QPDOTRQFZFSWHSNZNHFHKR1670-52-17 T15:00:301.2.840.800227.1.72.3.15| 1.2.840.425588.1.13.104.2.7.2.7278 [id number] Emani Gomez RN [facility]
[2023-12-04] MEDS ORDERED: ASPIRIN 81 MG CHEWABLE TABLET ONE (20:14)
--- NOTE | 2023-12-04 20:19 | EDPHYS ---
Physician Documentation [facility] Name: Walt Velazquez Age: 52 yrs Sex: Male : 1970 Arrival Date: 12/04/2023 Time: 18:45 Bed 11 Private MD: ED Physician Deandre Mckeon HPI: 12/03 19:26 This 52 yrs old Male presents to ER via EMS with complaints of Chest Pain. bridgette 19:26 The patient or guardian reports chest pain that is located primarily in the anterior [facility] chest wall, bilaterally. Onset: today. The pain does not radiate. Associated signs and symptoms: The patient has no apparent associated signs or symptoms. The chest pain is described as aching. Modifying factors: The symptoms are alleviated by nothing. the symptoms are aggravated by nothing. Severity of pain: At its worst the pain was mild in the emergency department the pain has resolved and did so just prior to arrival. The patient has experienced similar episodes in the past, multiple times, chronically. Historical: - Allergies: 18:50 Trazodone; too strong for him; ll1 - PMHx: 18:50 Alcoholism; Bipolar II; Hypertensive disorder; Parkinsons; Seizure; ll1 - PSHx: 18:50 toe amputation (Seizure); ll1 - Immunization history:: Adult Immunizations up to date. - Infectious Disease History:: Denies. - Social history:: Smoking status: Patient reports the use of cigarette tobacco products, smokes one-half pack cigarettes per day. - Family history:: not pertinent. ROS: 19:26 Constitutional: Negative for fever, chills, and weight loss, Eyes: Negative for injury, bridgette pain, redness, and discharge, ENT: Negative for injury, pain, and discharge, Neck: Negative for injury, pain, and swelling, Respiratory: Negative for shortness of breath, cough, wheezing, and pleuritic chest pain, Abdomen/GI: Negative for abdominal pain, nausea, vomiting, diarrhea, and constipation, Back: Negative for injury and pain, : Negative for injury, bleeding, discharge, and swelling, MS/Extremity: Negative for injury and deformity, Skin: Negative for injury, rash, and discoloration, Neuro: Negative for headache, weakness, numbness, tingling, and seizure, Psych: Negative for depression, anxiety, suicide ideation, homicidal ideation, and hallucinations, Allergy/Immunology: Negative for hives, rash, and allergies, Endocrine: Negative for neck swelling, polydipsia, polyuria, polyphagia, and marked weight changes, Hematologic/Lymphatic: Negative for swollen nodes, abnormal bleeding, and unusual bruising, 19:26 Cardiovascular: Positive for chest pain, of the chest, Exam: 19:26 Constitutional: This is a well developed, well nourished patient who is awake, alert, bridgette and in no acute distress. Head/Face: Normocephalic, atraumatic. Eyes: Pupils equal round and reactive to light, extra-ocular motions intact. Lids and lashes normal. Conjunctiva and sclera are non-icteric and not injected. Cornea within normal limits. Periorbital areas with no swelling, redness, or edema. ENT: Nares patent. No nasal discharge, no septal abnormalities noted. Tympanic membranes are normal and external auditory canals are clear. Oropharynx with no redness, swelling, or masses, exudates, or evidence of obstruction, uvula midline. Mucous membranes moist. Neck: Trachea midline, no thyromegaly or masses palpated, and no cervical lymphadenopathy. Supple, full range of motion without nuchal rigidity, or vertebral point tenderness. No Meningismus. Chest/axilla: Normal chest wall appearance and motion. Nontender with no deformity. No lesions are appreciated. Cardiovascular: Regular rate and rhythm with a normal S1 and S2. No gallops, murmurs, or rubs. Normal PMI, no JVD. No pulse deficits. Respiratory: Lungs have equal breath sounds bilaterally, clear to auscultation and percussion. No rales, rhonchi or wheezes noted. No increased work of breathing, no retractions or nasal flaring. Abdomen/GI: Soft, non-tender, with normal bowel sounds. No distension or tympany. No guarding or rebound. No evidence of tenderness throughout. Back: No spinal tenderness. No costovertebral tenderness. Full range of motion. Male : Normal genitalia with no discharge or lesions. Skin: Warm, dry with normal turgor. Normal color with no rashes, no lesions, and no evidence of cellulitis. MS/ Extremity: Pulses equal, no cyanosis. Neurovascular intact. Full, normal range of motion. Neuro: Awake and alert, GCS 15, oriented to person, place, time, and situation. Cranial nerves II-XII grossly intact. Motor strength 5/5 in all extremities. Sensory grossly intact. Cerebellar exam normal. Normal gait. Psych: Awake, alert, with orientation to person, place and time. Behavior, mood, and affect are within normal limits. 19:26 ECG was reviewed by the Attending Physician. Vital Signs: 18:48 BP 106 / 56; Pulse 106; Resp 17; Temp 97.9; Pulse Ox 97% ; Weight 65.77 kg; Height 5 ll1 ft. 3 in. ; Pain 7/10; 20:00 BP 103 / 61; Pulse 97; Resp 18; Pulse Ox 97% on R/A; me1 18:48 Body Mass Index 25.68 (65.77 kg, 160.02 cm) ll1 18:48 Pain Scale: Adult ll1 MDM: 18:54 Patient medically screened. bridgette 19:31 HEART Score: History: Slightly Suspicious (0), ECG: Non specific repolarization bridgette disturbance / LBTB / PM (1), Age: > 45 and < 65 years (1), Risk Factors: > or = 3 Risk factors for atherosclerotic disease (2), [Hypercholesterolemia] [Hypertension] [Active Smoker] [+ Family HX] Troponin: < or = 1 x Normal Limit (0). The patient was not given aspirin in the Emergency Department. Patient reports taking aspirin within the past 24 hours. ALEJANDRINA Risk Score: 1 - Three or more CAD risk factors, TOTAL SCORE = 1. Data reviewed: vital signs, nurses notes, lab test result(s), EKG, radiologic studies. Consideration of Admission/Observation Escalation of care including admission/observation considered. I considered the following discharge prescriptions or medication management in the emergency department Medications were administered in the Emergency Department. See MAR. Independent interpretation of the following test(s) in the Emergency Department EKG: See my EKG interpretation above. Test considered but Not performed: Ultrasound NO 2 D ECHO. Care significantly affected by the following chronic conditions: Hypertension, BIPOLAR, ALCOHOLIC, HTN, PARKINSON, SZ DO. Counseling: I had a detailed discussion with the patient and/or guardian regarding the historical points, exam findings, and any diagnostic results supporting the discharge/admit diagnosis, lab results, radiology results. 20:15 ED course: PT EXPLAINED ALL RISK OF LEAVING AND NOT COMPLETING HIS WORK UP , , bridgette FAILURE TO DIAGNOSE, WORSENING CONDITION. 12/03 19:01 Order name: CBC with Diff [facility] 12/03 19:01 Order name: CMP [facility] 12/03 19:01 Order name: Troponin High Sensitivity [facility] 12/03 19:01 Order name: ETOH Level [facility] 12/03 19:01 Order name: BNP [facility] 12/03 19:01 Order name: Urinalysis w/ reflexes [facility] 12/03 19:01 Order name: UDS [facility] 12/03 19:01 Order name: EKG; Complete Time: [facility] 12/03 19: Order name: EKG - Nurse/Tech; Complete Time: : [facility] EC: Rate is 102 beats/min. Rhythm is regular. QRS [place] is Normal. [place] interval is normal. bridgette QRS interval is normal. QT interval is normal. No Q waves. T waves are Normal. ST Segment is depressed in leads II, III, aVF, V3, V4, V5, V6. Clinical impression: Sinus tachycardia. Interpreted by me. Reviewed by me. Administered Medications: 20:17 Not Given (Patient Refused): Banana Bag - (ns 0.9% 1000 ml, folic acid ivpb 1 mg, me1 [id number] mg, multivitamin1 amp) IV at calculated rate once 20:17 Not Given (Patient Refused): [id number] mg IV at per protocol once me1 20:17 Not Given (Patient Refused): aspirinchewable tablet 81 mg PO once me1 20:17 Not Given (Patient Refused): magnesium sulfate1 grams IVPB once over 1 hrs me1 Disposition Summary: 12/04/23 20:18 Discharge Ordered Notes: Location: Home bridgette Problem: an acute exacerbation bridgette Symptoms: have improved bridgette Condition: Fair bridgette Diagnosis - Alcohol abuse bridgette - Alcohol dependence bridgette - Chest pain, unspecified bridgette - Bipolar disorder, unspecified bridgette Followup: bridgette - With: Private Physician - When: 2 - 3 days - Reason: Recheck today's complaints, Continuance of care, Re-evaluation by your physician Followup: bridgette - With: Cristhian Hernandez MD - When: 2 - 3 days - Reason: Recheck today's complaints, Re-evaluation by your physician Followup: bridgette - With: Enio Gallardo MD - When: 2 - 3 days - Reason: Recheck today's complaints, Re-evaluation by your physician Discharge Instructions: - Discharge Summary Sheet bridgette - Alcohol Intoxication bridgette - Nonspecific Chest Pain, Adult bridgette - Alcohol Intoxication, [id number] bridgette - Nonspecific Chest Pain, Adult, Brgm-az-[id number] bridgette - Alcohol Abuse and Nutrition bridgette - Aspirin and Your Heart bridgette - Managing Bipolar Disorder bridgette - Alcohol Abuse and Dependence Information, Adult bridgette - Supporting Someone With Bipolar Disorder [facility] Forms: - Medication Reconciliation Form bridgette - Antibiotic Education bridgette - Prescription Opioid Use bridgette - Patient Portal Instructions bridgette - Leadership Thank You Letter [facility] Prescriptions: - Pepcid 20 mg Oral Tablet - take 1 tablet ORAL route every 12 hours for 10 days; 20 tablet; Refills: 0, bridgette Product Selection Permitted Signatures: Dispatcher [employer] EDDeandre Castrejon MD MD cha Lewis, Lynsay RN RN ll1 Droa Bowens RN me1
--- NOTE | 2023-12-04 20:19 | ER ---
Nurse's Notes [facility] Name: Walt Velazquez Age: 52 yrs Sex: Male : 1970 Arrival Date: 12/04/2023 Time: 18:45 Bed 11 Private MD: Diagnosis: Alcohol abuse;Alcohol dependence;Chest pain, unspecified;Bipolar disorder, unspecified Presentation: 12/03 18:48 Chief complaint: Patient states: Still has CP and L eye watering, seen earlier. ll1 Coronavirus screen: Client denies travel out of the [place] in the last 14 days. At this time, the client does not indicate any symptoms associated with coronavirus-19. Ebola Screen: Patient denies travel to an Ebola-affected area in the 21 days before illness onset. Initial Sepsis Screen: Does the patient meet any 2 criteria? No. Patient's initial sepsis screen is negative. Does the patient have a suspected source of infection? No. Patient's initial sepsis screen is negative. Risk Assessment: Do you want to hurt yourself or someone else? Patient reports no desire to harm self or others. Onset of symptoms was November 27, 2023. 18:48 Method Of Arrival: EMS ll1 18:48 Acuity: LATASHA 3 ll1 Triage Assessment: 18:50 General: Appears in no apparent distress. Behavior is calm, cooperative, appropriate ll1 for age. Pain: Complains of pain in chest. EENT: Reports L eye watering. Cardiovascular: Reports chest pain. Historical: - Allergies: 18:50 Trazodone; too strong for him; ll1 - PMHx: 18:50 Alcoholism; Bipolar II; Hypertensive disorder; Parkinsons; Seizure; ll1 - PSHx: 18:50 toe amputation (Seizure); ll1 - Immunization history:: Adult Immunizations up to date. - Infectious Disease History:: Denies. - Social history:: Smoking status: Patient reports the use of cigarette tobacco products, smokes one-half pack cigarettes per day. - Family history:: not pertinent. Screenin:30 [facility] ED Fall Risk Assessment (Adult) History of falling in the last 3 months, me1 including since admission No falls in past 3 months (0 pts) Confusion or Disorientation No (0 pts) Intoxicated or Sedated No (0 pts) Impaired Gait No (0 pts) Mobility Assist Device Used No (0 pt) Altered Elimination No (0 pt) Score/Fall Risk Level 0 - 2 = Low Risk Maintained a safe environment, Provided non-skid footwear, Hourly rounding (assess needs \T\ fall precautionary measures) done. Abuse screen: Denies threats or abuse. Nutritional screening: No deficits noted. Tuberculosis screening: No symptoms or risk factors identified. Assessment: 19:30 General: Appears comfortable, unkempt, Behavior is calm, cooperative, appropriate for me1 age, Reports c/o chest pain on arrival, denies cp at this time. 19:30 Pain: Denies pain. Neuro: Level of Consciousness is awake, alert, obeys commands, me1 Oriented to person, place, situation. Cardiovascular: Patient's skin is warm and dry. Cardiovascular: Reports chest pain, on arrival. Denies cp at this time. Respiratory: Airway is patent Respiratory effort is even, unlabored, Respiratory pattern is regular, symmetrical. GI: No signs and/or symptoms were reported involving the gastrointestinal system. : No signs and/or symptoms were reported regarding the genitourinary system. EENT: No signs and/or symptoms were reported regarding the EENT system. Derm: Skin is healthy with good turgor, Skin is pink, warm \T\ dry. Musculoskeletal: No signs and/or symptoms reported regarding the musculoskeletal system. Vital Signs: 18:48 BP 106 / 56; Pulse 106; Resp 17; Temp 97.9; Pulse Ox 97% ; Weight 65.77 kg; Height 5 ll1 ft. 3 in. ; Pain 7/10; 20:00 BP 103 / 61; Pulse 97; Resp 18; Pulse Ox 97% on R/A; me1 18:48 Body Mass Index 25.68 (65.77 kg, 160.02 cm) ll1 18:48 Pain Scale: Adult ll1 ED Course: 18:48 Patient arrived in ED. ll1 18:50 Triage completed. ll1 18:52 Arm band placed on. ll1 18:53 EKG done. ll1 18:54 Deandre Mckeon MD is Attending Physician. [facility] 19:30 Patient has correct armband on for positive identification. Bed in low position. Call nm1 light in reach. Side rails up X 1. Provided Education on: POC. Verbalized understanding. . Client placed on continuous cardiac and pulse oximetry monitoring. NIBP monitoring applied. monitoring coordinator on. Pulse ox on. NIBP on. 19:30 No provider procedures requiring assistance completed. O2 via room air. me1 19:53 Dora Bowens, RN is Primary Nurse. me1 20:11 Initial lab(s) drawn, by nm, sent to lab. Urine collected: clean catch specimen, clear. me1 Inserted saline lock: 22 gauge in right antecubital area, using aseptic technique. 20:11 UDS Sent. me1 20:11 Urinalysis w/ reflexes Sent. me1 20:11 BNP Sent. me1 20:11 ETOH Level Sent. me1 20:11 Troponin High Sensitivity Sent. me1 20:11 CMP Sent. me1 20:12 CBC with Diff Sent. me1 20:16 IV discontinued, intact, bleeding controlled, No redness/swelling at site. Pressure me1 dressing applied. 20:18 Cristhian Hernandez MD is Referral Physician. [facility] 20:18 Enio Gallardo MD is Referral Physician. [facility] Administered Medications: 20:17 Not Given (Patient Refused): Banana Bag - (ns 0.9% 1000 ml, folic acid ivpb 1 mg, me1 [id number] mg, multivitamin1 amp) IV at calculated rate once 20:17 Not Given (Patient Refused): mg IV at per protocol once me1 20:17 Not Given (Patient Refused): aspirinchewable tablet 81 mg PO once me1 20:17 Not Given (Patient Refused): magnesium sulfate1 grams IVPB once over 1 hrs me1 Medication: 19:30 VIS not applicable for this client. me1 Outcome: 20:18 Discharge ordered by . [facility] 20:35 Discharged to home ambulatory, me1 20:35 Condition: stable 20:35 Discharge instructions given to patient, Instructed on discharge instructions, follow up and referral plans. Demonstrated understanding of instructions, follow-up care, 20:36 Instructed on medication usage, Demonstrated understanding of medications, me1 Prescriptions given X 1, 20:36 Patient left the ED. me1 Signatures: Deandre Mckeon MD MD cha Lewis, Lynsay, RN RN 1 Dora Bowens, ROBERTO RN me1 Corrections: (The following items were deleted from the chart) 18:51 18:48 Pulse 106bpm; Resp 17bpm; Pulse Ox 97%; Temp 97.9F; 65.77 kg; Height 5 ft. 3 in.; ll1 BMI: 25.6; Pain 7/10, Adult; ll1
[2023-12-04 20:22] LABS: Absolute Basophils 0.1 K/uL (0-0.5); Absolute Lymphocytes (CBC) 1.6 K/uL (0.7-4.9); Absolute Neutrophil 10.7 K/uL (1.8-8.0); Basophils % 0.4 % (0-1.3); Eosinophils % 0.4 % (0-4.4); Hematocrit 38.8 % (39.6-49.0); Hemoglobin 12.8 g/dL (13.6-17.9); Lymphocytes % 11.8 % (15.3-44.8); MCH 30.5 pg (27.0-35.0); MCHC 33.1 g/dL (32.0-36.0); MCV 92.3 fL (80-100); MPV 6.6 fL (7.6-11.3); Monocytes % 7.2 % (3.3-12.3); Neutrophils % 80.2 % (41.7-73.7); Platelets 292 thou/uL (152-406); Red Cell Distribution Width 16.5 % (12.1-15.2)
[2023-12-04 20:23] LABS: Specific Gravity 1.019 (1.005-1.030); Urine Bilirubin NEGATIVE (Negative); Urine Blood Negative (Negative); Urine Clarity Clear (Clear); Urine Color Light-Yellow (Yellow); Urine Glucose 3+ (Negative); Urine Ketones NEGATIVE (Negative); Urine Microscopic Reflex YN NO UMIC; Urine Nitrite NEGATIVE (Negative); Urine Protein NEGATIVE (Negative); Urine Urobilinogen Normal (Normal); Urine pH 5.5 (5.0-7.0)
[2023-12-04 20:36] LABS: Barbiturates NEGATIVE (NEGATIVE); Benzodiazepines NEGATIVE (NEGATIVE); Cocaine NEGATIVE (NEGATIVE); METHAMPHETAM NEGATIVE (NEGATIVE); Methadone NEGATIVE (NEGATIVE); Opiates NEGATIVE (NEGATIVE); Phencyclidine NEGATIVE (NEGATIVE); THC Cannibis NEGATIVE (NEGATIVE)
[2023-12-04 20:51] LABS: Albumin 3.6 g/dL (3.4-5.0); Albumin/Globulin Ratio 1.2 (1.1-1.8); Anion Gap 9.4 mEq/L (5.0-15.0); Bilirubin Total 0.3 mg/dL (0.2-1.0); Potassium 3.4 mEq/L (3.5-5.1); Protein, Total 6.6 g/dL (6.4-8.2); Troponin High Sensitivity 5.5 pg/mL (<58.9)
[2023-12-04 21:23] VITALS: BP 103/61; TEMP 97.9; O2SAT 97
== END 2023-12-04 20:36 | disposition home or self-care (01) ==
LOC: ER 18:45
DX: R07.89 Other chest pain (principal); F10.20 Alcohol dependence, uncomplicated; F31.9 Bipolar disorder, unspecified
CPT/HCPCS: 36415; 80053; 80307; 81003; 82077; 83880; 84484; 85025; 99285

== ENCOUNTER 2023-12-06 00:25 | Emergency (ER) | payer SELFPAY ==
[2011-10-24 19:41] VITALS: BP 138/81
--- OUTSIDE RECORDS SUMMARY | 2023-12-06 00:32 | XMS REPORT | Continuity of Care Document ---
Author Name Unknown Address [address] [facility] [address] [place] [address] [facility] Address [address] [facility] [address] [place] [address] Care Team Providers Care Lung Gun Operator Name Role Phone Pcp-None Primary Care Physician Unavailab Sulaiman Armenta DO Attending Clinician + HEMANT KLEIN Attending Clinician Unavailable Hemant Klein MD Attending Clinician [phone] [place] Attending Clinician Unavailab JESSICA Gallardo Attending Clinician Unavailable Rayray Driscoll MD Attending Clinician + Jessica Prado MD Attending Clinician +[phone] Oswald Murphy MD Attending Clinician [phone] DIYA CHOWDHURY Attending Clinician Unavailab Diya Mackey DO Attending Clinician +[phone] Fidel Cuellar Attending Clinician Unavailable DIRK YARBROUGH Attending Clinician Unavailable Leticia Rowland Attending Clinician [phone] Dirk Yarbrough MD Attending Clinician [phone] Faye Portillo LVN Attending Clinician [phone] Pia Reddy Attending Clinician [phone] Vinnie Navarro Attending Clinician Unavailable OSWALD MURPHY Admitting Clinician Unavailable Oswald Murphy MD Admitting Clinician [phone] DIYA CHOWDHURY Admitting Clinician UnavailLeticia Gaytan Admitting Clinician Unavailable JESSICA PRADO Admitting Clinician Unavailable Jessica Prado MD Admitting Clinician [phone] Payers Payer Name Policy Type Policy Number [...] s DA Active U 4-25 00:00: 00 [facility] No Known Drug Allergie s DA Active U 0 9-16 00:00: 00 [facility] No Known Drug Allergie s DA Active U 0 3-29 00:00: 00 [facility] No Known Drug Allergie s DA Active U 2019-06 2-16 00:00: 00 [facility] No Known Drug Allergie s DA Active U 2019-06 2-15 00:00: 00 [facility] No Known Drug Allergie s DA Active U 2019-06 2-02 00:00: 00 [facility] Trazodon e Propensi ty to adverse reaction s Active Other - See comments 10-06 00:00: 00 [facility] TRAZODON E DRUG INGREDI Active Other-Cmnt 10-06 00:00: 00 [facility] Social History Social Habit Start Date Stop Date Quantity Comments Source History of tobacco use Cigarette Smoker [facility] Exposure to SARS-CoV-2 (event) 2022-11-01 00:00:00 2022-11-11 13:57:00 Not sure [facility] Tobacco use and exposure 2022-08-10 00:00:00 2022-08-10 00:00:00 User of smokeless tobacco [facility] Alcohol intake 2022-08-10 00:00:00 2022-08-10 00:00:00 Current drinker of alcohol (finding) [facility] Tobacco Comment 2022-08-10 00:00:00 2022-08-10 00:00:00 1/2 a pack a day [facility] Alcoholic beverage intake 2022-08-10 00:00:00 2022-08-10 00:00:00 Current drinker of alcohol (finding) [facility] History of Social function 2022-08-10 00:00:00 2022-08-10 00:00:00 [facility] Sex assigned at 1970 00:00:00 1970 00:00:00 [facility] Smoking Status Start Date Stop Date Source Smokes tobacco daily 2022-08-10 00:00:00 [facility] Medications Ordered Medication Name Filled Medication Name Start Date Stop Date Current Medication? Ordering Clinician Indication Dosage Frequency Signature (SIG) Comments Components Source NaCl 0.9% (NS) bolus infusion 1,000 mL 11-11 19:45: 00 11-11 20:23 :00 No 1000mL at 999 mL/hr, 1,000 mL, IV Piggyback, ONCE, 1 dose, On Thu11/11/22 at 1445, STAT [facility] multivitami n tablet 1 tablet 2- 15:00: [...] 08-12 00:00: 00 09-12 04:59 :00 No [id number] 1mg Take 1 tablet by mouth in [...] at 1015, Until Discontinu ed, Routine [facility] enoxaparin (LOVENOX) injection 40 mg 08-10 23:00: 00 Yes 40mg 40 mg, Subcutaneo us, DAILY, First dose on Thu08/10/22 at 1700, Until Discontinu ed, Routine [facility] NaCl 0.9% (NS) IV infusion 1,000 mL 08-10 15:00: 00 Yes 1000mL at 125 mL/hr, IV Infusion, CONTINUOUS , Starting on Thu08/10/22 at 0900, Until Discontinu ed, Routine [facility] foLIC acid (FOLATE) 5 mg in NaCl 0.9% (NS) piggyback 08-10 15:00: 00 08-11 16:14 :47 No 5mg IV Piggyback, DAILY, First dose on 08/10/22 at 0900, Until Discontinu ed, 50 mL [facility] thiamine (VITAMIN B1) 100 mg in NaCl 0.9% (NS) piggyback 08-10 15:00: 00 08-10 16:08 :00 No 100mg IV Piggyback, DAILY, 1 dose, First dose on 08/10/22 at 0900, 50 mL [facility] LORazepam (ATIVAN) injection 2 mg 08-10 14:52: 57 Yes 2mg 2 mg, Slow IV Push, Q4HPRN, Starting on 08/10/22 at 0852, Until Discontinu ed, Routine, Seizures, Agitation, Anxiety [facility] Sliding Scale Insulin-Reg ular + Fsbg Testing 08-10 13:30: 00 Yes Subcutaneo us, AC+HS, First dose on Thu08/10/22 at 0730, Until Discontinu ed, Routine [facility] oxazepam (SERAX) capsule 15 mg 08-10 12:08: [...] mg/dL, repeat.
[facility] glucagon (GLUCAGEN [...] 1 dose, On 08/10/22 at 0200, STAT [facility] thiamine (VITAMIN B1) injection 100 mg 08-10 06:45: 00 08-10 06:52 :00 No 100mg 100 mg, Intravenou s, ONCE, 1 dose, [facility] 08/10/22 [facility] 0045[facility] LOR[facility] (ATIVAN) [facility] 1 mg 08-10 05:15: 00 08-10 05:22 :00 No 1mg 1 mg, Slow IV Push, ONCE, 1 dose, On 08/09/22 at 2315, STAT [facility] ketorolac (TORADOL) injection 15 mg 2021-0616 16:00: 00 04-06 14:50 :00 No 15mg 15 mg, Slow IV Push, ONCE, 1 dose, On 04/06/22 at 1100, [facility] ondans[facility]ron (ZOFRAN (PF)) injection 4 mg 2021-06 15:45: 00 04-06 14:50 :00 No 4mg 4 mg, Slow IV Push, ONCE, 1 dose, On 04/06/22 at 1045, [facility] oxazepam (SERAX) capsule 15 mg 12-31 06:28: 17 01-01 06:29 :00 No 15mg 15 mg, Oral, Q12H TAPER, 2 doses, First dose on Thu12/31/21 at 0130, Last dose on Thu12/31/21 at 1330, Routine [facility] multivitami n tablet 12-31 00:00: 00 Yes [id number] 1{tbl} Take 1 tablet by mouth in the morning. [facility] thiamine 100 mg tablet 12-31 00:00: 00 Yes [id number] 100mg Take 1 tablet by mouth in the morning. [facility] aspirin 81 mg chewable tablet 12-31 00:00: 00 Yes [id number] 81mg Take 1 tablet by mouth in the morning. [facility] foLIC acid 1 mg tablet 12-31 00:00: 00 01-31 04:59 :00 No [id number] 1mg Take 1 tablet by mouth in the morning for 30 days. [facility] metFORMIN 500 mg tablet 12-30 00:00: 00 Yes [id number] 500mg Take 1 tablet by mouth in the morning and 1 tablet in the evening. Take with meals. [facility] aspirin chewable tablet 81 mg 12-29 14:00: 00 Yes 81mg 81 mg, Oral, DAILY, First dose on Thu12/29/21 at 0900, Until Discontinu ed, Routine [facility] sulfur hexafluorid e microsphr (LUMASON) injection 5 mL 12-29 13:45: 00 12-29 13:45 :00 No [id number] 5mL 5 mL, Intravenou s, ONCE, 1 dose, On 12/29/21 at 0845, Routine
administrative appeals tribunal member approving Restricted medication : STEFANIE GORMAN [facility] enoxaparin (LOVENOX) injection 40 mg 12-29 13:00: 00 Yes 40mg 40 mg, Subcutaneo us, Q24H, First dose on Thu12/29/21 at 0800, Until Discontinu ed, Routine [facility] Sliding Scale Insulin - Lispro (HumaLOG) + Fsbg Testing 12-29 13:00: 00 Yes Subcutaneo us, TID MEALS+HS, First dose on Thu12/29/21 at 0800, Until Discontinu ed, Routine [facility] [...] 1 dose, On 12/28/21 at 1815, JACIEL [facility] NaCl 0.9% (NS) bolus infusion 2,000 mL 12-28 22:45: 00 12-28 23:18 :00 No 2000mL at 999 mL/hr, 2,000 mL, IV Infusion, ONCE, 1 dose, On 12/28/21 at 1745, [facility] LORazepam (ATIVAN) injection 1 mg [...] Systolic blood pressure 2023-11-05 21:00:00 106 mm[Hg] [facility] Diastolic blood pressure 2023-11-05 21:00:00 70 mm[Hg] [facility] Heart rate 2023-11-05 21:00:00 74 /min [facility] Body temperature 2023-11-05 21:00:00 36.5 Theresa [facility] Respiratory rate 2023-11-05 21:00:00 21 /min [facility] Oxygen saturation in Arterial blood by Pulse oximetry 2023-11-05 21:00:00 98 /min [facility] Body height 2023-11-05 19:59:00 160 cm [facility] Body weight 2023-11-05 19:59:00 63.504 kg [facility] BMI 2023-11-05 19:59:00 24.80 kg/m2 [facility] Systolic blood pressure 2022-11-11 20:31:31 116 mm[Hg] [facility] Diastolic blood pressure 2022-11-11 20:31:31 77 mm[Hg] [facility] Heart rate 2022-11-11 20:31:31 84 /min [facility] Respiratory rate 2022-11-11 20:31:31 12 /min [facility] Oxygen saturation in Arterial blood by Pulse oximetry 2022-11-11 20:31:31 90 /min [facility] Body temperature 2022-11-11 18:49:00 37.11 Theresa [facility] Body height 2022-11-11 18:49:00 160 cm [facility] Body weight 2022-11-11 18:49:00 68.04 kg [facility] BMI 2022-11-11 18:49:00 26.57 kg/m2 [facility] Body temperature 2022-08-11 14:00:00 36.5 Theresa [facility] Systolic blood pressure 2022-08-11 10:00:00 116 mm[Hg] [facility] Diastolic blood pressure 2022-08-11 10:00:00 71 mm[Hg] [facility] Heart rate 2022-08-11 10:00:00 70 /min [facility] Respiratory rate 2022-08-11 10:00:00 16 /min [facility] Body weight 2022-08-11 10:00:00 65.499 kg [facility] BMI 2022-08-11 10:00:00 25.58 kg/m2 [facility] Oxygen saturation in Arterial blood by Pulse oximetry 2022-08-11 10:00:00 100 /min [facility] Body height 2022-08-10 22:12:00 160 cm [facility] Systolic blood pressure 2022-04-06 16:00:00 125 mm[Hg] [facility] Diastolic blood pressure 2022-04-06 16:00:00 75 mm[Hg] [facility] Heart rate 2022-04-06 16:00:00 87 /min [facility] Respiratory rate 2022-04-06 16:00:00 22 /min [facility] Oxygen saturation in Arterial blood by Pulse oximetry 2022-04-06 16:00:00 98 /min [facility] Body temperature 2022-04-06 14:41:00 37 Theresa [facility] Body height 2022-04-06 14:41:00 160 cm [facility] Body weight 2022-04-06 14:41:00 63.504 kg [facility] BMI 2022-04-06 14:41:00 24.80 kg/m2 [facility] Systolic blood pressure 2022-01-20 02:27:00 121 mm[Hg] [facility] Diastolic blood pressure 2022-01-20 02:27:00 75 mm[Hg] [facility] Heart rate 2022-01-20 02:27:00 79 /min [facility] Respiratory rate 2022-01-20 02:27:00 12 /min [facility] Oxygen saturation in Arterial blood by Pulse oximetry 2022-01-20 02:27:00 98 /min [facility] Body temperature 2022-01-19 22:19:00 36.44 Theresa [facility] Body weight 2022-01-19 22:19:00 60.328 kg [facility] BMI 2022-01-19 22:19:00 23.56 kg/m2 [facility] Systolic blood pressure 2021-12-30 20:52:00 134 mm[Hg] [facility] Diastolic blood pressure 2021-12-30 20:52:00 76 mm[Hg] [facility] Heart rate 2021-12-30 20:52:00 67 /min [facility] Body temperature 2021-12-30 20:26:00 36.67 Theresa [facility] Oxygen saturation in Arterial blood by Pulse oximetry 2021-12-30 20:26:00 99 /min [facility] Respiratory rate 2021-12-30 16:21:00 18 /min [facility] Body weight 2021-12-30 08:27:00 60.464 kg [facility] BMI 2021-12-30 08:27:00 23.61 kg/m2 [facility] Body height 2021-12-29 01:29:00 160 cm [facility] Procedures Procedure Date / Time Performed Performing Clinician Source XR CHEST 1 VW 2023-11-05 20:09:00 Sulaiman Hawkins [facility] LIPASE 2023-11-05 20:01:00 Sulaiman Hawkins [facility] MAGNESIUM 2023-11-05 20:01:00 Sulaiman Hawkins [facility] TROPONIN I 2023-11-05 20:01:00 Sulaiman Hawkins [facility] COMP. METABOLIC PANEL ([id number]) 2023-11-05 20:01:00 Singer [facility] CBC WITH DIFF 2023-11-05 20:01:00 Singer [facility] N-TERMINAL PRO-BNP 2023-11-05 20:01:00 Singer [facility] MAGNESIUM 2022-11-11 19:05:00 Jessica [facility] BASIC METABOLIC PANEL (NA, K, CL, CO2, GLUCOSE, BUN, CREATININE, CA) 2022-11-11 19:05:00 Jessica [facility] ETHANOL 2022-11-11 19:05:00 Jessica [facility] CBC WITH DIFF 2022-11-11 19:05[facility] 2022-08-11 13:36:00 Arvind Prado [facility] PHOSPHORUS 2022-08-11 10:35:00 [facility] 2022-08-11 10:35:00 Eve [facility] AMMONIA, PLASMA 2022-08-11 10:35[facility]. METABOLIC PANEL ([id number]) 2022-08-11 10:35:00 Jessica Prado [facility] CBC WITH DIFF 2022-08-11 10:35:00 Oswald Murphy [facility] POCT GLUCOSE (AUTOMATED) 2022-08-11 02:15:00 Arvind Prado [facility] POCT GLUCOSE (AUTOMATED) 2022-08-10 23:10:00 Arvind Prado [facility] POCT GLUCOSE (AUTOMATED) 2022-08-10 18:20:00 Arvind Prado [facility] POCT GLUCOSE (AUTOMATED) 2022-08-10 14:11:00 Arvind Prado [facility] POCT GLUCOSE (AUTOMATED) 2022-08-10 10:59:00 Gopal Driscoll [facility] COVID-19 (ID NOW RAPID TESTING) 2022-08-10 07:17:00 Rayray Driscoll [facility] LAB ONLY COVID INTERPRETATION 2022-08-10 07:17:00 Rayray Driscoll [facility] HB ECG ROUTINE & RHYTHM STRIP 2022-08-10 06:03:48 Rayray Driscoll [facility] URINALYSIS 2022-08-10 05:46:00 [facility] URINE DRUG (IMMUNOASSAY) - COMPREHENSIVE DRUG SCREEN W/O REFLEX 2022-08-10 05:45:00 Rayray Driscoll [facility] CREATINE KINASE 2022-08-10 05:16:00 [facility] 2022-08-10 05:16:00 [facility] MAGNESIUM 2022-08-10 05:16:00 Rayray Driscoll [facility] TROPONIN I 2022-08-10 05:16:00 Rayray Driscoll [facility] COMP. METABOLIC PANEL ([id number]) 2022-08-10 05:16:00 Rayray Driscoll [facility] ETHANOL 2022-08-10 05:16:00 Rayray Driscoll [facility] CBC WITH DIFF 2022-08-10 05:16:00 Rayray Driscoll [facility] N-TERMINAL PRO-BNP 2022-08-10 05:16:00 Rayray Driscoll [facility] CRITICAL CARE 2022-08-10 04:52:00 Rayray Driscoll [facility] XR CHEST 1 VW 2022-04-06 14:51:50 [facility] 2022-04-06 14:42:00 Diya Chowdhury [facility] TROPONIN I 2022-04-06 14:42:00 Diya Chowdhury [facility] COMP. METABOLIC PANEL ([id number]) 2022-04-06 14:42:00 Diya Chowdhury [facility] CBC WITH DIFF 2022-04-06 14:42:00 [facility] 2022-04-06 14:42:00 Diya Chowdhury [facility] ACTIVATED PARTIAL THRMPLAS NELDA 2022-04-06 14:42:00 Diya Chowdhury [facility] LACTIC ACID WHOLE BLOOD 2022-01-20 00:22:00 Leticia Baldwin [facility] URINE DRUG (IMMUNOASSAY) - COMPREHENSIVE DRUG SCREEN 2022-01-19 23:10:00 Leticia Baldwin [facility] URINALYSIS 2022-01-19 23:10:00 Leticia Baldwin [facility] TROPONIN I 2022-01-19 23:00:00 Leticia Baldwin [facility] COMP. METABOLIC PANEL ([id number]) 2022-01-19 23:00:00 Leticia Baldwin [facility] LITHIUM 2022-01-19 23:00:00 Leticia Baldwin [facility] ETHANOL 2022-01-19 23:00:00 Leticia Baldwin [facility] CBC WITH DIFF 2022-01-19 23:00:00 Leticia Baldwin [facility] COVID-19 (ID NOW RAPID TESTING) 2022-01-19 23:00:00 Leticia Baldwin [facility] CT HEAD WO CONTRAST 2022-01-19 22:49:00 Leticia Baldwin [facility] XR CHEST 1 VW 2022-01-19 22:41:00 Leticia Baldwin [facility] POCT GLUCOSE (AUTOMATED) 2022-01-19 22:25:00 Leticia Baldwin [facility] POCT GLUCOSE (AUTOMATED) 2021-12-30 21:55:00 Arvind Prado [facility] POCT GLUCOSE (AUTOMATED) 2021-12-30 16:21:00 Arvind Prado [facility] POCT GLUCOSE (AUTOMATED) 2021-12-30 12:30:00 Arvind Prado [facility] HEPATIC FUNCTION PANEL ([id number]) (ALB,T.PRO,BILI T,BU/BC,ALT,AST,ALK PHOS) 2021-12-30 09:28:00 Maira Gaitan [facility] POCT GLUCOSE (AUTOMATED) 2021-12-30 02:11:00 Arvind Prado [facility] POCT GLUCOSE (AUTOMATED) 2021-12-29 21:41:00 Arvind Prado [facility] POCT GLUCOSE (AUTOMATED) 2021-12-29 16:37:00 Arvind Prado gregoria [facility] TRANSTHORACIC ECHO (TTE) COMPLETE W/ CONTRAST 2021-12-29 13:05:00 Jessica Prado [facility] POCT GLUCOSE (AUTOMATED) 2021-12-29 12:41:00 Arvind Prado [facility] TROPONIN I 2021-12-29 09:42:00 Eve [facility] TROPONIN I 2021-12-29 04:55:00 [facility] 2021-12-28 21:18:22 Poppy Renteria [facility] AMMONIA, PLASMA 2021-12-28 21:00:00 Pia Renteria [facility] COVID-19 (ID NOW RAPID TESTING) 2021-12-28 20:42:00 Pia Renteria [facility] LAB ONLY COVID INTERPRETATION 2021-12-28 20:42:00 Pia Renteria [facility] URINE DRUG (IMMUNOASSAY) - COMPREHENSIVE DRUG SCREEN W/O REFLEX 2021-12-28 20:42:00 Pia Renteria [facility] URINALYSIS 2021-12-28 20:40:00 Pia Renteria [facility] N-TERMINAL PRO-BNP 2021-12-28 20:40:00 Corina Renteria [facility] TROPONIN I 2021-12-28 20:40:00 Pia Renteria [facility] THYROID STIMULATING HORMONE 2021-12-28 20:40:00 Jessica Prado [facility] COMP. METABOLIC PANEL ([id number]) 2021-12-28 20:40:00 Pia Renteria [facility] LIPID PANEL ([id number])(TOTAL CHOLESTEROL, TRIGLYCERIDES, HDL) 2021-12-28 20:40:00 Demetrius Langford [facility] ETHANOL 2021-12-28 20:40:00 Demetrius Langford [facility] CBC WITH DIFF 2021-12-28 20:40:00 Pia Renteria [facility] GLYCOSYLATED HEMOGLOBIN (A1C) 2021-12-28 20:40:00 Jessica Prado [facility] PROTHROMBIN TIME / INR 2021-12-28 20:40:00 Lesly Renteria [facility] XR CHEST 1 VW 2021-12-28 20:16:00 Pia Renteria [facility] HB ECG ROUTINE & RHYTHM STRIP 2021-12-28 20:04:59 Pia Renteria [facility] Encounters Start Date/Time End Date/Time Encounter Type Admission Type Attending [facility] Care Department Encounter ID Source 2021-09-17 16:45:00 Inpatient [facility] [id number] [facility] 2020-06-06 16:07:00 Inpatient [facility] [id number] [facility] 2020-06-06 06:20:00 Inpatient [facility] [id number] [facility] 2020-06-05 19:35:00 Inpatient [facility] [id number] [facility] 2020-05-23 19:53:00 Inpatient [facility] [id number] [facility] 2020-05-23 19:53:00 Inpatient [facility] [id number] [facility] 2023-11-05 14:54:00 2023-11-05 16:27:00 Emergency Sulaiman Hawkins [facility] [id number] [facility] 2022-11-11 13:50:00 2022-11-11 16:07:00 Emergency X HEMANT KLEIN [facility] ERT [id number] [facility] 2022-11-11 13:50:00 2022-11-11 16:07:00 Emergency Hemant Klein [facility] [id number] [id number] [facility] 2022-10-14 20:59:00 2022-10-14 20:59:00 Emergency [facility] [id number] [facility] 2022-10-14 20:59:00 2022-10-14 20:59:00 Emergency Emergency [place] [facility] [id number] [facility] 2022-08-09 22:59:00 2022-08-11 13:02:00 Outpatient X JESSICA PRADO [facility] [id number] [facility] 2022-08-09 22:59:00 2022-08-11 13:02:00 Emergency Rayray Driscoll [facility] [id number] [facility] 2022-04-06 09:38:00 2022-04-06 11:42:00 Emergency X DIYA CHOWDHURY [facility] ERT [id number] [facility] 2022-04-06 09:38:00 2022-04-06 11:42:00 Emergency Toddjose l Diya [facility] [id number] [facility] 2022-03-07 12:38:00 2022-03-07 12:38:00 Emergency [facility] [id number] [address] [place] [address] 2022-03-07 12:38:00 2022-03-07 12:38:00 Emergency Emergency Fidel Cuellar [facility] [id number] [address] [place] [address] 2022-01-19 17:18:00 2022-01-19 22:00:00 Emergency X DIRK YARBROUGH [facility] ERT [id number] [facility] 2022-01-19 17:18:00 2022-01-19 22:00:00 Emergency NicolasaLeticia vega Julio C [facility] [id number] [id number] [id number] [facility] 2021-12-31 00:00:00 2021-12-31 00:00:00 Transition of Care PortilloFaye martinMarlon MASSIEL NAVARRO [id number] [id number] [id number] [facility] 2021-12-28 14:53:00 2021-12-30 17:42:00 Inpatient X JESSICA PRADO [facility] [id number] [facility] 2021-12-28 14:53:00 2021-12-30 17:42:00 Hospital Encounter Pia Renteria Jelani [facility] [id number] [id number] [facility] 2021-09-17 16:47:00 2021-09-17 16:47:00 Emergency [facility] [id number] [facility] 2020-06-06 16:07:00 2020-06-06 16:07:00 Emergency [facility] [id number] [address] [place] [address] Results Test Description Test Time Test Comments [...] CONCLUSIONS: No signs of acute cardiopulmonary disease. [facility] ETHANOL 2022-10-21 3 19:45:56 ALCOHOL<10mg/dL11/11 2:45 PM [facility]<10 [id number] Toxic>100 Depression of EVIDENCE TECHNICIAN>[address] [facility] 19:41:47* Test Item Value Reference Range Interpretation Comme nts MAGNESIUM (test code = [id number]) 1.8 mg/dL 1.7-2.4 Lab Interpretation (test cod e = [id number]) Normal [facility] [id number] 19:25:26* Test Item Value Reference Range Interpretation Comme nts WBC (test code = 6690-2) 6.82 See_Comment [Automated [employer]] The system which generated this result transmitted reference range: 4.20 - 10.70 10*3/?L. The reference range was not used to interpret this result as normal/abnormal. RBC (test code = 789-8) 4.98 See_Comment [Automated [employer]] The system which generated this result transmitted [...] 33.9 g/dL 31.2-35.0 RDW-SD (test code = 08118-7) 46.0 fL 38.5-51.6 RDW-CV (test code = 788-0) 13.5 % 12.1-15.4 PLT (test code = 777-3) 237 See_Comment [Automated messa ge] The system which generated this result transmitted reference range: 150 - 328 10*3/?L. The reference range was not used to interpret this result as normal/abnormal. MPV (test code = 91904-0) 8.9 fL 9.8-13.0 L NRBC/100 WBC (test code = 8934247197) 0.0 See_Comment [Automated me ssage] The system which generated this result transmitted reference range: 0.0 - 10.0 /100 WBCs. The reference range was not used to interpret this result as normal/abnormal. NRBC x10^3 (test code = 3481090741) See_Comment [Automated messa ge] The system which generated this result transmitted reference range: 10*3/?L. The reference range was not used to interpret this result as normal/abnormal. GRAN MAT (NEUT) % (test code = 770-8) 71.2 % IMM GRAN % (test code = 4054199202) 0.30 % LYMPH % (test code = 736-9) 18.2 % MONO % (test code = 5905-5) 8.4 % EOS % (test code = 713-8) 1.0 % BASO % (test code = 706-2) 0.9 % GRAN MAT x10^3(ANC) (test code = 4510763084) 4.86 10*3/uL 1.99-6.95 IMM GRAN x10^3 (test code = 5958212891) 0.00-0.06 LYMPH x10^3 (test code = 731-0) 1.24 10*3/uL 1.09-3.23 MONO x10^3 (test code = 742-7) 0.57 10*3/uL 0.36-1.02 EOS x10^3 (test code = 711-2) 0.07 10*3/uL 0.06-0.53 BASO x10^3 (test code = 704-7) 0.06 10*3/uL 0.01-0.09 Lab Interpretation (test code = 16381-3) [facility]normal [facility] Urinalysis Rflx Cult/Xiupk2734-10-20 22:20:00* Test Item Value Reference Range Interpretation Comme nts Color,Urine (test code = UCOL) Yellow Yellow Clarity,Urine (test code = UCLAR) Clear Clear Ph, Urine (test code = UPH) 7.0 5.0-9.0 N Specific [place],Urine (test code = USG) 1.020 1.005-1.030 N [...] code = ULEU) Negative mg/dL Negative Drug Screen,Qcszh6940-43-78 22:20:00* Test Item Value Reference Range Interpretation [...] UPROP) Negative Negative Complete Blood Count Auto Lpml8966-49-80 21:21:00* Test Item Value Reference Range Interpretation [...] code = NRBCP) 0 % Comprehensive Metabolic Vvrvl0160-27-15 21:21:00* Test Item Value Reference Range Interpretation [...] a race coefficient. Additional information canbe found at:[email or web address] ([email or web address]) [Automated message] The system [...] = ALP) 134 U/L 46-116 H Ethanol Pyfnh0488-59-91 21:21:00* Test Item Value Reference Range Interpretation Comme nts Ethanol (test code = ETOH) < 3 mg/dL The pharmacologi yudy response to blood alcohol levels mayvary from individual to individual. The fatal concentrationhas been reported to be >400mg/dL. POCT GLUCOSE (AUTOMATED)2022-08-11 13:40:35* Test Item Value Reference Range Interpretation Comme nts POCT GLU (test code = 7207257322) 121 mg/dL 70-110 H Lab Interpretation (test cod e = 00298-3) Abnormal [facility] GLUCOSE (AUTOMATED)2022-08-11 02:18:58* Test Item Value Reference Range Interpretation Comme nts POCT GLU (test code = 4503793561) 183 mg/dL 70-110 H Lab Interpretation (test cod e = 02917-7) Abnormal [facility] GLUCOSE (AUTOMATED)2022-08-10 23:16:11* Test Item Value Reference Range Interpretation Comme nts POCT GLU (test code = 4128281128) 176 mg/dL 70-110 H Lab Interpretation (test cod e = 45584-8) Abnormal [facility] GLUCOSE (AUTOMATED)2022-08-10 18:22:51* Test Item Value Reference Range Interpretation Comme nts POCT GLU (test code = 7734191557) 165 mg/dL 70-110 H Lab Interpretation (test cod e = 46584-7) Abnormal [facility] GLUCOSE (AUTOMATED)2022-08-10 14:18:05* Test Item Value Reference Range Interpretation Comme nts POCT GLU (test code = 7717729379) 138 mg/dL 70-110 H Lab Interpretation (test cod e = 65977-0) Abnormal [facility] GLUCOSE (AUTOMATED)2022-08-10 11:01:21* Test Item Value Reference Range Interpretation Comme nts POCT GLU (test code = 3192572695) 143 mg/dL 70-110 H Lab Interpretation (test cod e = 50834-9) Abnormal [facility] LakeTROPONIN W3430-07-71 06:51:18* Test Item Value Reference Range Interpretation Comme nts TROPONIN I (test code = 7585800079) 0.008 ng/mL <=0.034 JUAN ALBERTO (test code [...] of biotin. Lab Interpretation (test code = 31219-6) Normal [facility] LakeN-TERMINAL NXX-JDJ9426-14-19 06:47:37* Test Item Value Reference Range Interpretation Comme nts NT-proBNP (test code = 0492250655) 37 pg/mL <=125 JUAN ALBERTO (test code = JUAN ALBERTO) Biotin has been reported to cause a negative bias, interpret results relative to patient's use of biotin. Lab Interpretation (test code = 80956-0) Normal [facility] LakeETHANOL2023-02-19 06:25:52 ALCOHOL<10mg/dL08/10/2022 12:25 [facility] Nwyswhyz71-398 Toxic>100 Depression of EVIDENCE TECHNICIAN>400 [facility]. METABOLIC PANEL (41726)2022-08-10 06:19:15* Test Item Value Reference Range Interpretation Comme nts NA (test code = 7521762246) 135 mmol/L 135-145 K (test code = 4445278764) 4.3 mmol/L 3.5-5.0 CL (test code = 1735102379) 98 mmol/L 98-108 CO2 TOTAL (test code = 8722885736) 30 mmol/L 23-31 AGAP (test code = 0282211351) 7 2-16 BUN (test code = 0632603340) 11 mg/dL 7-23 GLUCOSE (test code = 6088539702) 153 mg/dL 70-110 H CREATININE (test code = 8629058741) 0.77 mg/dL 0.60-1.25 TOTAL BILI (test code = 3836713044) 0.9 mg/dL 0.1-1.1 CALCIUM (test code = 7888390292) 10.0 mg/dL 8.6-10.6 T PROTEIN (test code = 2215293713) 7.7 g/dL 6.3-8.2 ALBUMIN (test code = 2935048675) 4.6 g/dL 3.5-5.0 ALK PHOS (test code = 7777560675) 92 U/L 34-122 ALTv (test code = 1742-6) 35 U/L 5-50 AST(SGOT) (test code = 3757523973) 42 U/L 13-40 H eGFR (test code = 1913238581) 106.1 mL/min/1.73m2 JUAN ALBERTO (test code = [...] imaging tests). Lab Interpretation (test code = 30517-4) [facility] Test Item Value Reference Range Interpretation Comme nts MAGNESIUM (test code = 0762561764) 2.2 mg/dL 1.7-2.4 Lab Interpretation (test cod e = 15359-4) Normal [facility] LakeLIPASE2023-[facility]-19 06:18:55* Test Item Value Reference Range Interpretation Comme nts LIPASE (test code = 5499593731) 18 U/L 0-220 Lab Interpretation (test cod e = 29634-4) Normal [facility] LakeCREATINE JOSJSB5737-00-06 06:18:55* Test Item Value Reference Range Interpretation Comme nts CK (test code = 8375285713) 174 U/L 33-194 Lab Interpretation (test cod e = 94392-1) Normal [facility] LakeCB WITH PGFL1670-38-91 06:02:35* Test Item Value Reference Range Interpretation [...] 32.4 g/dL 31.2-35.0 RDW-SD (test code = 82495-9) 50.2 fL 38.5-51.6 RDW-CV (test code = 788-0) 14.3 % 12.1-15.4 PLT (test code = 777-3) 241 See_Comment [Automated messa ge] The system which generated this result transmitted reference range: 150 - 328 10*3/?L. The reference range was not used to interpret this result as normal/abnormal. MPV (test code = 79356-6) 8.6 fL 9.8-13.0 L NRBC/100 WBC (test code = 7684387373) 0.0 See_Comment [Automated me ssage] The system which generated this result transmitted reference range: 0.0 - 10.0 /100 WBCs. The reference range was not used to interpret this result as normal/abnormal. NRBC x10^3 (test code = 1336093729) See_Comment [Automated messa ge] The system which generated this result transmitted reference range: 10*3/?L. The reference range was not used to interpret this result as normal/abnormal. GRAN MAT (NEUT) % (test code = 770-8) 63.9 % IMM GRAN % (test code = 0041506480) 0.50 % LYMPH % (test code = 736-9) 17.6 % MONO % (test code = 5905-5) 16.5 % EOS % (test code = 713-8) 0.7 % BASO % (test code = 706-2) 0.8 % GRAN MAT x10^3(ANC) (test code = 9076134731) 4.79 10*3/uL 1.99-6.95 IMM GRAN x10^3 (test code = 6060973835) 0.04 10*3/uL 0.00-0.06 LYMPH x10^3 (test code = 731-0) 1.32 10*3/uL 1.09-3.23 MONO x10^3 (test code = 742-7) 1.24 10*3/uL 0.36-1.02 H EOS x10^3 (test code = 711-2) 0.05 10*3/uL 0.06-0.53 L BASO x10^3 (test code = 704-7) 0.06 10*3/uL 0.01-0.09 Lab Interpretation (test code = 07630-1) Abnormal [facility] LakeGERMANIA J1555-07-81 15:15:32* Test Item Value Reference Range Interpretation Comments TROPONIN I (test code = 7518335080) 0.007 ng/mL See_Comment [Automated message] The system [...] of biotin. Lab Interpretation (test code = 98287-1) Normal [facility] LakeaPTT2022-10-16 15:08:29* Test Item Value Reference Range Interpretation Comme [facility] APTT Patient (test code = 3173-2) See_Comment [Automated message] The system which generated this result transmitted reference range: 23 - 38 Seconds. The reference range was not used to interpret this result as normal/abnormal. JUAN ALBERTO (test code = JUAN ALBERTO) The [facility] patient population mean normal value for aPTT is 30 seconds. Lab Interpretation (test code = 07675-3) Normal [facility] LakePROTHROMBIN TIME / [id number] 15:06:28* Test Item Value Reference Range Interpretation Comme [facility] PROTIME PATIENT (test code = 5964-2) See_Comment [Automated [employer] ge] The system which generated this result transmitted reference range: 12.0 - 14.7 Seconds. The reference range was not used to interpret this result as normal/abnormal. INR (test code = 6301-6) Normal INR <1.1; Warfarin Therapeutic range 2.0 to 3.0 or 2.5 to 3.5, depending upon the indications. Lab Interpretation (test code = 50438-0) Normal [facility] LakeCOMP. METABOLIC PANEL (39622)2022-04-06 15:03:31* Test Item Value Reference Range Interpretation Comme [facility] NA (test code = 9000517999) 136 mmol/L 135-145 K (test code = 7953587079) 5.0 mmol/L 3.5-5 CL (test code = 4715314886) 104 mmol/L 98-108 CO2 TOTAL (test code = 7352899060) 21 mmol/L 23-31 L AGAP (test code = 5210904061) 2-16 BUN (test code = 0637643815) 11 mg/dL 7-23 GLUCOSE (test code = 3787852095) 162 mg/dL 70-110 H CREATININE (test code = 2640183745) 0.52 mg/dL 0.6-1.25 L TOTAL BILI (test code = 4856234106) 1.0 mg/dL 0.1-1.1 CALCIUM (test code = 4295453624) 9.3 mg/dL 8.6-10.6 T PROTEIN (test code = 3550339976) 7.4 g/dL 6.3-8.2 ALBUMIN (test code = 8747707749) 4.4 g/dL 3.5-5 ALK PHOS (test code = 4218362805) 134 U/L 34-122 H ALTv (test code = 1742-6) 17 U/L 5-50 AST(SGOT) (test code = 0671627637) 38 U/L 13-40 eGFR (test code = 0289691054) mL/min/1.73m2 JUAN ALBERTO (test code = JUAN [...] imaging tests). Lab Interpretation (test code = 69505-5) Abnormal [facility] LakeLIPASE, RGNIM3001-16-58 15:03:31* Test Item Value Reference Range Interpretation Comme nts LIPASE (test code = 5386273153) 29 U/L 0-220 Lab Interpretation (test cod e = 20516-5) Normal [facility] LakeCBC WITH RQBH8126-20-94 14:51:49* Test Item Value Reference Range Interpretation Comme nts WBC (test code = 6690-2) See_Comment [Automated [employer]] The system which generated this result transmitted reference range: 4.20 - 10.70 10*3/?L. The reference range was not used to interpret this result as normal/abnormal. RBC (test code = 789-8) See_Comment [Automated [employer]] The system which generated this result transmitted [...] 34.0 g/dL 31.2-35 RDW-SD (test code = 13392-4) 45.9 fL 38.5-51.6 RDW-CV (test code = 788-0) 13.3 % 12.1-15.4 PLT (test code = 777-3) See_Comment [Automated [employer]] The system which generated this result transmitted reference range: 150 - 328 10*3/?L. The reference range was not used to interpret this result as normal/abnormal. MPV (test code = 31451-7) 8.4 fL 9.8-13 L NRBC/100 WBC (test code = 2759742842) See_Comment [Automated me ssage] The system which generated this result transmitted reference range: 0.0 - 10.0 /100 WBCs. The reference range was not used to interpret this result as normal/abnormal. NRBC x10^3 (test code = 2275493822) See_Comment [Automated messa ge] The system which generated this result transmitted reference range: 10*3/?L. The reference range was not used to interpret this result as normal/abnormal. GRAN MAT (NEUT) % (test code = 770-8) 63.0 % IMM GRAN % (test code = 0817765655) 0.50 % LYMPH % (test code = 736-9) 25.2 % MONO % (test code = 5905-5) 9.8 % EOS % (test code = 713-8) 0.3 % BASO % (test code = 706-2) 1.2 % GRAN MAT x10^3(ANC) (test code = 6490620718) 3.73 10*3/uL 1.99-6.95 IMM GRAN x10^3 (test code = 5706413292) 0.03 10*3/uL 0-0.06 LYMPH x10^3 (test code = 731-0) 1.49 10*3/uL 1.09-3.23 MONO x10^3 (test code = 742-7) 0.58 10*3/uL 0.36-1.02 EOS x10^3 (test code = 711-2) 0.06-0.53 L BASO x10^3 (test code = 704-7) 0.07 10*3/uL 0.01-0.09 Lab Interpretation (test code = 60643-9) Abnormal [facility], Urinalysis Rflx Cult/Ezbpr5398-22-34 13:53:00* Test Item Value Reference Range Interpretation Comme nts Color,Urine (test code = UCOL) Yellow Yellow Clarity,Urine (test code = UCLAR) Cloudy Clear A Ph, Urine (test code = UPH) 7.5 5.0-9.0 N Specific [place],Urine (test code = USG) 1.025 1.005-1.030 N [...] = ULEU) Negative mg/dL Negative UF REFLEXDrug Screen,Wwwrp7521-30-32 13:53:00* Test Item Value Reference Range Interpretation [...] UPROP) Negative Negative Complete Blood Count Auto Sdor7692-49-21 12:58:00* Test Item Value Reference Range Interpretation [...] = NRBCP) 0 % Coronavirus PCR, COVID19 Blhho7949-84-29 12:58:00* Test Item Value Reference Range Interpretation Comme nts Coronavirus PCR, COVID19 Rapid (test code = SARSCOV2) Coronavirus PCR, COVID19 Rapid (test code = YLZKQNE92.1) Reference Range: Negative SARS-CoV-2 PCR Result: (test code = SARS-CoV-2 PCR Result:) Negative by RT-PCR COVID-19 Status: AsymptomaticComprehensive Metabolic Wvqmg6753-62-13 12:58:00* Test Item Value Reference Range Interpretation [...] = ALP) 144 U/L 46-116 H Ethanol Ynggz6604-11-31 12:58:00* Test Item Value Reference Range Interpretation Comme nts Ethanol (test code = ETOH) < 3 mg/dL The pharmacologi yudy response to blood alcohol levels mayvary from individual to individual. The fatal concentrationhas been reported to be >400mg/dL. VGNBLCC9215-75-21 01:47:56* Test Item Value Reference Range Interpretation Comme nts [place] (test code = 1588258869) 0.7 mmol/L 0.6-1.2 JUAN ALBERTO (test code = JUAN ALBERTO) Toxic Range: ? Greater than 1.2 mmol/L Lab Interpretation (test code = 01924-0) Normal [facility] LakeTROPONIN L0724-35-41 00:26:53* Test Item Value Reference Range Interpretation Comments TROPONIN I (test code = 7496511045) 0.002 ng/mL See_Comment [Automated message] The system [...] of biotin. Lab Interpretation (test code = 93670-3) Normal [facility] LakeETHANOL2022-08-01 00:18:52 ALCOHOL<10mg/dL01/19/2022 7:18 [facility] Xgtnnaju16-171 Toxic>100 Depression of EVIDENCE TECHNICIAN>400 Fatalities ReportedUnJoint [facility] between [facility] and [facility] ResourcesCOMP. METABOLIC PANEL (11761)2022-01-20 00:16:16* Test Item Value Reference Range Interpretation Comme nts NA (test code = 2463039693) 137 mmol/L 135-145 K (test code = 8877072652) 4.5 mmol/L 3.5-5 CL (test code = 0909421939) 103 mmol/L 98-108 CO2 TOTAL (test code = 5256013433) 26 mmol/L 23-31 AGAP (test code = 2195004243) 2-16 BUN (test code = 1143945518) 10 mg/dL 7-23 GLUCOSE (test code = 3113452868) 121 mg/dL 70-110 H CREATININE (test code = 2103356941) 0.65 mg/dL 0.6-1.25 TOTAL BILI (test code = 1072119107) 0.8 mg/dL 0.1-1.1 CALCIUM (test code = 4663548671) 11.4 mg/dL 8.6-10.6 H T PROTEIN (test code = 8084663435) 7.2 g/dL 6.3-8.2 ALBUMIN (test code = 4453246341) 4.6 g/dL 3.5-5 ALK PHOS (test code = 2270366060) 112 U/L 34-122 ALTv (test code = 1742-6) 19 U/L 5-50 AST(SGOT) (test code = 8120892705) 26 U/L 13-40 eGFR (test code = 9223311823) mL/min/1.73m2 JUAN ALBERTO (test code = JUAN [...] imaging tests). Lab Interpretation (test code = 89005-5) Abnormal [facility] WITH UZCG4342-57-30 23:43:54* Test Item Value Reference Range Interpretation Comme nts WBC (test code = 6690-2) See_Comment [Automated [employer]] The system which generated this result transmitted reference range: 4.20 - 10.70 10*3/?L. The reference range was not used to interpret this result as normal/abnormal. RBC (test code = 789-8) See_Comment [Automated [employer]] The system which generated this result [...] 34.4 g/dL 31.2-35 RDW-SD (test code = 74975-6) 44.0 fL 38.5-51.6 RDW-CV (test code = 788-0) 12.6 % 12.1-15.4 PLT (test code = 777-3) See_Comment [Automated [employer]] The system which generated this result transmitted reference range: 150 - 328 10*3/?L. The reference range was not used to interpret this result as normal/abnormal. MPV (test code = 60036-8) 9.1 fL 9.8-13 L NRBC/100 WBC (test code = 6011195306) See_Comment [Automated me ssage] The system which generated this result transmitted reference range: 0.0 - 10.0 /100 WBCs. The reference range was not used to interpret this result as normal/abnormal. NRBC x10^3 (test code = 6916203502) See_Comment [Automated messa ge] The system which generated this result transmitted reference range: 10*3/?L. The reference range was not used to interpret this result as normal/abnormal. GRAN MAT (NEUT) % (test code = 770-8) 69.8 % IMM GRAN % (test code = 4478968182) 0.40 % LYMPH % (test code = 736-9) 18.0 % MONO % (test code = 5905-5) 10.9 % EOS % (test code = 713-8) 0.1 % BASO % (test code = 706-2) 0.8 % GRAN MAT x10^3(ANC) (test code = 7013936465) 5.58 10*3/uL 1.99-6.95 IMM GRAN x10^3 (test code = 0075776879) 0.03 10*3/uL 0-0.06 LYMPH x10^3 (test code = 731-0) 1.44 10*3/uL 1.09-3.23 MONO x10^3 (test code = 742-7) 0.87 10*3/uL 0.36-1.02 EOS x10^3 (test code = 711-2) 0.06-0.53 L BASO x10^3 (test code = 704-7) 0.06 10*3/uL 0.01-0.09 Lab Interpretation (test code = 13527-9) Abnormal [facility] GLUCOSE (AUTOMATED)2022-01-19 22:27:41* Test Item Value Reference Range Interpretation Comme nts POCT GLU (test code = 1614132311) 123 mg/dL 70-110 H Lab Interpretation (test cod e = 36515-7) Abnormal [facility] GLUCOSE (AUTOMATED)2021-12-30 22:08:16* Test Item Value Reference Range Interpretation Comme nts POCT GLU (test code = 0274120843) 167 mg/dL 70-110 H Lab Interpretation (test cod e = 77922-9) Abnormal [facility] GLUCOSE (AUTOMATED)2021-12-30 16:50:40* Test Item Value Reference Range Interpretation Comme nts POCT GLU (test code = 1749011693) 154 mg/dL 70-110 H Lab Interpretation (test cod e = 24882-7) Abnormal [facility] GLUCOSE (AUTOMATED)2021-12-30 12:38:43* Test Item Value Reference Range Interpretation Comme nts POCT GLU (test code = 9287931185) 164 mg/dL 70-110 H Lab Interpretation (test cod e = 75660-4) Abnormal [facility] GLUCOSE (AUTOMATED)2021-12-30 02:14:58* Test Item Value Reference Range Interpretation Comme nts POCT GLU (test code = 5137325076) 220 mg/dL 70-110 H Lab Interpretation (test cod e = 31895-8) Abnormal [facility] GLUCOSE (AUTOMATED)2021-12-29 21:50:02* Test Item Value Reference Range Interpretation Comme nts POCT GLU (test code = 3026352436) 191 mg/dL 70-110 H Lab Interpretation (test cod e = 21870-6) Abnormal [facility] GLUCOSE (AUTOMATED)2021-12-29 20:15:01* Test Item Value Reference Range Interpretation Comme nts POCT GLU (test code = 8716725745) 163 mg/dL 70-110 H Lab Interpretation (test cod e = 92603-9) Abnormal [facility] LakeTransthoracic echo (TTE)2021-12-29 19:12:22* Test Item Value Reference Range Interpretation Comme nts Height (test code = 2553811265) in Weight (test code = 2447176140) lbs Systolic BP (test code = 0085902964) mmHg Diastolic BP (test code = 3955192426) mmHg Heart Rate (test code = 5596175306) bpm BSA (test code = 1124079390) 1.62 m2 Ao root annulus (test code = 0031061531) 2.45 cm Ao root diam (test code = 0871319213) 2.45 cm Aortic root (test code = 8691221829) 2.45 cm ACS (test code = 1256573498) 1.66 cm LA size (test code = 4985988848) 3.2 cm LVOT diameter (test code = 3753335646) 1.95 cm LVIDD (test code = 5400006732) 3.60 cm IVS (test code = 7405471672) 0.94 cm Interventricular Septum Diastolic Thickness by 2D (test code = 7168685) 0.94 cm LVPWD (test code = 7699827516) 0.80 cm PW (test code = 5595379014) 0.80 cm 0.6-1.1 EF(Teich) (test code = 6833823160) 52.80 % LVIDS (test code = 1707087452) 2.60 cm FS (test code = 0944530378) 27 % EF - 2D (test code = 41579013) 52.80 % LAV(MOD-sp4) (test code = 4829160139) 16.80 mL MV Peak E Jovany (test code = 8102226935) 46.1 cm/s E wave decelartion time (test code = 2140646048) 0.31 s MV Peak A Jovany (test code = 9052202610) 58.1 cm/s E/A ratio (test code = 5112549522) ratio MV E/e' septal (test code = 6697652073) 5.7 cm/s Tapse (test code = 6559091660) 1.60 cm LVOT stroke volume (test code = 6890868571) 52.10 cm3 LVOT peak jovany (test code = 0566762407) 110.6 cm/s LVOT mn grad (test code = 7478289725) mmHg AV LVOT peak gradient (test code = 5440966650) mmHg LVOT peak VTI (test code = 1581111128) 17.4 cm LV V1 mean (test code = 4607199229) 66.10 cm/s Aortic valve mean velocity (test code = 4162916356) 73.0 cm/s Ao peak jovany (test code = 2883060367) 124.6 cm/s Ao VTI (test code = 8695846635) 18.6 cm AV area by cont VTI (test code = 6107375016) 2.8 cm2 AV area peak jovany (test code = 4166349701) 2.7 cm2 Ao max PG (test code = 4906191268) 6.20 mm[Hg] AV peak gradient (test code = 6840421749) mmHg AV valve area (test code = 7746005546) 2.80 cm2 AV mean gradient (test code = 2599955126) mmHg Radiology Study observation (narrative) (test code = 41331-4) JUAN ALBERTO (test code = JUAN ALBERTO) [...] mL of Lumason ultrasound enhancing agent used. [facility] ([facility])2021-12-29 12:50:31* Test Item Value Reference Range Interpretation Comme nts POCT GLU (test code = 6147119313) 141 mg/dL 70-110 H Lab Interpretation (test cod e = 48884-3) Abnormal [facility] LakeTroponin A4945-32-81 10:38:31* Test Item Value Reference Range Interpretation Comments TROPONIN I (test code = 7636524756) 0.003 ng/mL See_Comment [Automated message] The system [...] of biotin. Lab Interpretation (test code = 68381-7) Normal [facility] LakeLIPID PANEL (25399)(TOTAL CHOLESTEROL, TRIGLYCERIDES, HDL)2021-12-29 05:56:47* Test Item Value Reference Range Interpretation Comme nts CHOL (test code = 9613872264) 168 mg/dL 120-200 HDL (test code = 0468776667) 102 mg/dL See_Comment [Automated [employer]] The system which generated this result transmitted reference range: >=40. The reference range was not used to interpret this result as normal/abnormal. HDLC RATIO (test code = 8496404094) See_Comment [[employer]ated [employer]] The system which generated this result transmitted reference range: <=5.0. The reference range was not used to interpret this result as normal/abnormal. TRIG (test code = 0614238645) 55 mg/dL 30-170 LDL CHOL (test code = 33063-7) 55 mg/dL See_Comment [Automated [employer]] The system which generated this result transmitted reference range: <=160. The reference range was not used to interpret this result as normal/abnormal. VLDL (test code = 7101124100) 11 mg/dL 5-60 Lab Interpretation (test code = 66595-3) [facility]2021-12-29 05:40:29* Test Item Value Reference Range Interpretation Comme nts TSH (test code = 6714351681) See_Comment Biotin has been reported to cause a negative bias, interpret results relative to patient's use of biotin. [Automated message] The system which generated this result transmitted reference range: 0.45 - 4.70 mIU/L. The reference range was not used to interpret this result as normal/abnormal. Lab Interpretation (test code = 78029-8) Normal [facility] [id number] 05:34:29* Test Item Value Reference Range Interpretation Comments TROPONIN I (test code = 9456574221) 0.006 ng/mL See_Comment [Automated message] The system [...] of biotin. Lab Interpretation (test code = 78906-2) Normal [facility]OL2022-[facility] 04:43:01 ALCOHOL<10mg/dL12/28/2021 11:43 PM [facility]ORYToxic Greater than or equal to 80 mg/dL. NOTE: Whole blood values are approximately 10% to 15% lower than serum and plasma.[facility] Glycosylated Hemoglobin (A1C)2021-12-29 01:51:44* Test Item Value Reference Range Interpretation Comme nts HGB A1C (test code = 4548-4) 6.5 % 4-5.7 H JUAN ALBERTO (test code = JUAN ALBERTO) Reference RangesNormal: <5.7%Prediabetes: 5.7 - 6.4%Diabetes: > 6.5% Lab Interpretation (test code = 63530-4) Abnormal [facility] [id number] 21:26:50* Test Item Value Reference Range Interpretation Comments TROPONIN I (test code = 4811992112) 0.002 ng/mL See_Comment [Automated message] The system [...] of biotin. Lab Interpretation (test code = 54921-3) Normal [facility] LakeN-TERMINAL [id number]-[id number] 21:23:29* Test Item Value Reference Range Interpretation Comme nts NT-proBNP (test code = 6045239722) 41 pg/mL See_Comment [Automated message] The system which generated this result transmitted reference range: <=125. The reference range was not used to interpret this result as normal/abnormal. JUAN ALBERTO (test code = JUAN ALBERTO) Biotin has been reported to cause a negative bias, interpret results relative to patient's use of biotin. Lab Interpretation (test code = 63749-3) Normal [facility] LakeAMMONIA, [id number] 21:20:38* Test Item Value Reference Range Interpretation Comme nts AMMONIA (test code = 9120920895) 9-33 L Slight hemolysis Lab Interpretation (test code = 69555-4) Abnormal [facility] LakeCOMP. METABOLIC PANEL (51983)2021-12-28 21:08:48* Test Item Value Reference Range Interpretation Comme nts NA (test code = 4121798490) 137 mmol/L 135-145 K (test code = 1332568766) 4.5 mmol/L 3.5-5 CL (test code = 0021283724) 97 mmol/L 98-108 L CO2 TOTAL (test code = 7848157887) 29 mmol/L 23-31 AGAP (test code = 5205421918) 2-16 BUN (test code = 0372709888) 10 mg/dL 7-23 GLUCOSE (test code = 2039548398) 188 mg/dL 70-110 H CREATININE (test code = 0475084578) 0.58 mg/dL 0.6-1.25 L TOTAL BILI (test code = 8347565596) 0.8 mg/dL 0.1-1.1 CALCIUM (test code = 6538927442) 10.5 mg/dL 8.6-10.6 T PROTEIN (test code = 1020037592) 7.6 g/dL 6.3-8.2 ALBUMIN (test code = 8634578606) 4.5 g/dL 3.5-5 ALK PHOS (test code = 7373289038) 107 U/L 34-122 ALTv (test code = 1742-6) 66 U/L 5-50 H AST(SGOT) (test code = 4624315209) 96 U/L 13-40 H eGFR (test code = 9791579402) mL/min/1.73m2 JUAN ALBERTO (test code = JUAN [...] imaging tests). Lab Interpretation (test code = 09841-2) Abnormal [facility] LakePROTHROMBIN TIME / [id number] 21:01:25* Test Item Value Reference Range Interpretation Comme nts PROTIME PATIENT (test code = 5964-2) See_Comment [Automated [employer]] The system which generated this result transmitted reference range: 12.0 - 14.7 Seconds. The reference range was not used to interpret this result as normal/abnormal. INR (test code = 6301-6) Normal INR <1.1; Warfarin Therapeutic range 2.0 to 3.0 or 2.5 to 3.5, depending upon the indications. Lab Interpretation (test code = 01615-9) Normal [facility] LakeCBC WITH [id number] 20:54:03* Test Item Value Reference Range Interpretation Comme nts WBC (test code = 6690-2) See_Comment [Automated [employer]] The system which generated this result transmitted reference range: 4.20 - 10.70 10*3/?L. The reference range was not used to interpret this result as normal/abnormal. RBC (test code = 789-8) See_Comment [Automated [employer]] The system which generated this result transmitted [...] 34.2 g/dL 31.2-35 RDW-SD (test code = 33277-6) 47.8 fL 38.5-51.6 RDW-CV (test code = 788-0) 13.3 % 12.1-15.4 PLT (test code = 777-3) See_Comment [Automated messa ge] The system which generated this result transmitted reference range: 150 - 328 10*3/?L. The reference range was not used to interpret this result as normal/abnormal. MPV (test code = 81642-4) 8.6 fL 9.8-13 L NRBC/100 WBC (test code = 6126465920) See_Comment [Automated me ssage] The system which generated this result transmitted reference range: 0.0 - 10.0 /100 WBCs. The reference range was not used to interpret this result as normal/abnormal. NRBC x10^3 (test code = 9747638541) See_Comment [Automated messa ge] The system which generated this result transmitted reference range: 10*3/?L. The reference range was not used to interpret this result as normal/abnormal. GRAN MAT (NEUT) % (test code = 770-8) 64.1 % IMM GRAN % (test code = 3185290279) 0.40 % LYMPH % (test code = 736-9) 16.6 % MONO % (test code = 5905-5) 17.2 % EOS % (test code = 713-8) 0.2 % BASO % (test code = 706-2) 1.5 % GRAN MAT x10^3(ANC) (test code = 4055344019) 3.47 10*3/uL 1.99-6.95 IMM GRAN x10^3 (test code = 0853938679) 0-0.06 LYMPH x10^3 (test code = 731-0) 0.90 10*3/uL 1.09-3.23 L MONO x10^3 (test code = 742-7) 0.93 10*3/uL 0.36-1.02 EOS x10^3 (test code = 711-2) 0.06-0.53 L BASO x10^3 (test code = 704-7) 0.08 10*3/uL 0.01-0.09 Lab Interpretation (test code = 49576-7) Abnormal [facility] LakeEthanol Atbsj1845-31-17 21:08:00* Test Item Value Reference Range Interpretation Comme nts Ethanol (test code = ETOH) < 3 mg/dL The pharmacologi yudy response to blood alcohol levels mayvary from individual to individual. The fatal concentrationhas been reported to be >400mg/dL. Complete Blood Count Auto [id number] 17:33:00* Test Item Value Reference Range Interpretation [...] = NRBCP) 0 % UA, Urinalysis Rflx Cult/Djztj6338-45-07 17:33:00* Test Item Value Reference Range Interpretation Comme nts Color,Urine (test code = UCOL) Dark Yellow Yellow A Clarity,Urine (test code = UCLAR) Clear Clear Ph, Urine (test code = UPH) 6.5 5.0-9.0 N Specific [place],Urine (test code = USG) 1.015 1.005-1.030 N [...] = ULEU) Trace mg/dL Negative A Urine Cyigqzqwgzc3684-04-87 17:33:00* Test Item Value Reference Range Interpretation Comme nts RBC,Urine (test code = URBCUF) None Seen /HPF 0-2 WBC,Urine (test code = UWBCUF) 0-5 /HPF 0-5 Epithelial Cell,Urine (test code = UECUF) 0-5 /HPF 0-5 Casts,Urine (test code = UCASTUF) None Seen /LPF None Seen Bacteria,Urine (test code = UBACTUF) None Seen /hpf None Seen Drug Screen,Wlwpe2183-05-83 17:33:00* Test Item Value Reference Range Interpretation [...] code = UPROP) Negative Negative Comprehensive Metabolic Bhvkz2892-33-15 17:33:00* Test Item Value Reference Range Interpretation [...] 101 U/L 46-116 N Sars-CoV-2/FLU A/B RSV [id number] 17:31:00* Test Item Value Reference Range Interpretation [...] SARS-CoV-2 PCR Result:) Negative by RT-PCR Drug Screen,Jbkjd5994-76-34 17:20:00* Test Item Value Reference Range Interpretation [...] UPROP) Negative Negative Complete Blood Count Auto Vfmy3670-74-11 17:14:00* Test Item Value Reference Range Interpretation [...] code = NRBCP) 0 % Comprehensive Metabolic Gbiey9093-40-90 17:14:00* Test Item Value Reference Range Interpretation [...] = ALP) 207 U/L 46-116 H Ethanol Fkhxt2199-85-53 17:14:00* Test Item Value Reference Range Interpretation Comme nts Ethanol (test code = ETOH) 192 mg/dL Complete Blood Count Auto Yrnx4491-21-59 20:20:00* Test Item Value Reference Range Interpretation [...] code = NRBCP) 0 % Comprehensive Metabolic Jdycb8033-02-70 20:20:00* Test Item Value Reference Range Interpretation [...] = ALP) 189 U/L 46-116 H Ethanol Gcxca8179-54-62 20:20:00* Test Item Value Reference Range Interpretation Comme nts Ethanol (test code = ETOH) 10 mg/dL Sars-CoV-2/FLU A/B RSV RPT0859-71-75 20:20:00* Test Item Value Reference Range Interpretation [...] Negative by Nucleic Acid Amplification UA, Urinalysis Mdoqllebeuu8808-08-37 20:20:00* Test Item Value Reference Range Interpretation Comme nts Color,Urine (test code = UCOL) Yellow Y Clarity,Urine (test code = UCLAR) Clear Clear PH,Urine (test code = UPH.XX) 7.0 5.5-8.5 Specific [place],Urine (test code = USG) 1.020 1.005-1.030 N [...] code = ULEU) Negative cells/uL Negative Drug Screen,Acawk9631-44-50 20:20:00* Test Item Value Reference Range Interpretation [...] (test code = UTHCS) Negative RESULT TO [facility] CT head/brain wo [facility] [address] [place] [address] Patient Name: Walt Velazquez Medical Record#: [id number] Address: Homeless City/State/Zip: [place] [address]: Vinnie Navarro MD Phone: Insurance: Self Pay /Age/Sex: 1970/50/M Admit/Reg Date: 09/17/[address]: Vinnie Navarro MD Location: [facility]/ PCP: PcpMd KERWIN Jimenez Date of Service: 09/17/21 Order (s): CT head/brain wo con CPT Code: 97492 Report Number: [id number] Reason for Exam: Altered mental status Location [...] PCPNO; GENESIS* Vinnie Navarro MD; Pcp-Md KERWIN Stlies Notes Date/Time Note Provider Source 2023-11-05 16:26:20 5879-13-08O36:26:20F ormatting of this note might be different [...] apparent distress. No ataxia noted. [facility] officer. 70076-1Ovwwbneoi department OfukAL0035-65-06A13:26:59[facility] department NoteTXT1.2.840.747675.1.13.104.2.7 .2.341996|[id number] for patient hppg01427-4TqlbFIKVAFWLVUQBdbqhzbs d C-CDA narrative [id number] R Potter RNUT[address] [id number] 12PEAEECEBXSGZHMCZDLQECN5700-79-37 T16:26:591.2.840.526391.1.72.3.15| 1.2.840.158485.1.13.104.2.7.2.7278 [id number] Renae Saldivar RN [facility] 2023-11-05 14:56:10 2027-19-07L79:56:10F ormatting of this note might be different from the original.Walt Velazquez Sr. is a 52 year old male arrive via [facility] c/o " throbbing ball in chest" since 0600 has been constant, pt immediately asks for food, 08616-5Zbwrygqjm department Triage wjzhXH4501-72-98X27:00:30[facility] department Triage noteTXT1.2.840.540524.1.13.104.2.7 .2.667914|[id number] for patient uofd89127-1Vswtnpepd department NoteLNNARRATIVEFormatted C-CDA narrative [id number] M. Barton RN[address] VlkkYphhdgaemAyfzaxnzcRNVN18945095 39RPXRFVCXJYBBUQTWJLPBCB3901-14-82 T15:00:301.2.840.525488.1.72.3.15| 1.2.840.278406.1.13.104.2.7.2.7278 [id number] Emani Gomez RN [facility]
--- NOTE | 2023-12-06 00:34 | EDPHYS ---
Physician Documentation [facility] Name: Walt Velazquez Age: 52 yrs Sex: Male : 1970 Arrival Date: 12/06/2023 Time: 00:25 Bed 8 Private MD: ED Physician Deandre Mckeon HPI: 12/05 00:27 This 52 yrs old Male presents to ER via Unassigned with complaints of bleeding bridgette at ac site , resolved. 00:27 The patient or guardian complains of iv site. The complaints affect the right bridgette antecubital area. Context: The problem was sustained at home, resulted from iv. Onset: The symptoms/episode began/occurred just prior to arrival. Treatment prior to arrival includes: pressure. Modifying factors: The symptoms are alleviated by nothing. the symptoms are aggravated by nothing. Associated signs and symptoms: The patient has no apparent associated signs or symptoms. The patient has experienced similar episodes in the past, a few times. Historical: - Allergies: 00:38 Trazodone; too strong for him; bm8 - PMHx: 00:38 Alcoholism; Hypertensive disorder; Parkinsons; Bipolar II; Seizure; bm8 - PSHx: 00:38 toe amputation (e); bm8 - Immunization history:: Adult Immunizations unknown. - Infectious Disease History:: Denies. - Family history:: not pertinent. - Social history:: Smoking status: Patient reports the use of cigarette tobacco products. ROS: 00:27 Constitutional: Negative for fever, chills, and weight loss, Eyes: Negative for injury, bridgette pain, redness, and discharge, ENT: Negative for injury, pain, and discharge, Neck: Negative for injury, pain, and swelling, Cardiovascular: Negative for chest pain, palpitations, and edema, Respiratory: Negative for shortness of breath, cough, wheezing, and pleuritic chest pain, Abdomen/GI: Negative for abdominal pain, nausea, vomiting, diarrhea, and constipation, Back: Negative for injury and pain, : Negative for injury, bleeding, discharge, and swelling, Skin: Negative for injury, rash, and discoloration, Neuro: Negative for headache, weakness, numbness, tingling, and seizure, Psych: Negative for depression, anxiety, suicide ideation, homicidal ideation, and hallucinations, Allergy/Immunology: Negative for hives, rash, and allergies, Endocrine: Negative for neck swelling, polydipsia, polyuria, polyphagia, and marked weight changes, Hematologic/Lymphatic: Negative for swollen nodes, abnormal bleeding, and unusual bruising, 00:27 MS/extremity: Positive for no symptoms, bleeding resolved, Exam: 00:27 Constitutional: This is a well developed, well nourished patient who is awake, alert, bridgette and in no acute distress. Head/Face: Normocephalic, atraumatic. Eyes: Pupils equal round and reactive to light, extra-ocular motions intact. Lids and lashes normal. Conjunctiva and sclera are non-icteric and not injected. Cornea within normal limits. Periorbital areas with no swelling, redness, or edema. ENT: Nares patent. No nasal discharge, no septal abnormalities noted. Tympanic membranes are normal and external auditory canals are clear. Oropharynx with no redness, swelling, or masses, exudates, or evidence of obstruction, uvula midline. Mucous membranes moist. Neck: Trachea midline, no thyromegaly or masses palpated, and no cervical lymphadenopathy. Supple, full range of motion without nuchal rigidity, or vertebral point tenderness. No Meningismus. Chest/axilla: Normal chest wall appearance and motion. Nontender with no deformity. No lesions are appreciated. Cardiovascular: Regular rate and rhythm with a normal S1 and S2. No gallops, murmurs, or rubs. Normal PMI, no JVD. No pulse deficits. Respiratory: Lungs have equal breath sounds bilaterally, clear to auscultation and percussion. No rales, rhonchi or wheezes noted. No increased work of breathing, no retractions or nasal flaring. Abdomen/GI: Soft, non-tender, with normal bowel sounds. No distension or tympany. No guarding or rebound. No evidence of tenderness throughout. Back: No spinal tenderness. No costovertebral tenderness. Full range of motion. Male : Normal genitalia with no discharge or lesions. Skin: Warm, dry with normal turgor. Normal color with no rashes, no lesions, and no evidence of cellulitis. Neuro: Awake and alert, GCS 15, oriented to person, place, time, and situation. Cranial nerves II-XII grossly intact. Motor strength 5/5 in all extremities. Sensory grossly intact. Cerebellar exam normal. Normal gait. Psych: Awake, alert, with orientation to person, place and time. Behavior, mood, and affect are within normal limits. 00:27 Musculoskeletal/extremity: Extremities: all appear grossly normal, with no appreciated pain with palpation, ROM: no acute changes, Circulation is intact in all extremities. Sensation intact. Compartment Syndrome exam of affected extremity: is normal. Weight bearing: able to fully bear weight, DVT Exam: No signs of deep vein thrombosis. no pain, no swelling, no tenderness, negative Homans' sign noted on exam, no appreciated bluish discoloration, no erythema, no increased warmth, Vital Signs: 00:36 bm8 00:36 pt left before vital signs could be obtained bm8 MDM: 00:31 Differential diagnosis: contusion, abrasion. Data reviewed: vital signs, nurses notes. bridgette Consideration of Admission/Observation Escalation of care including admission/observation considered. I considered the following discharge prescriptions or medication management in the emergency department Medications were administered in the Emergency Department. See MAR. Test considered but Not performed: Labs: no labs, no studies. Care significantly affected by the following chronic conditions: alcoholic. Counseling: I had a detailed discussion with the patient and/or guardian regarding the historical points, exam findings, and any diagnostic results supporting the discharge/admit diagnosis, the need for outpatient follow up, for definitive care, a family practitioner. 00:33 Patient medically screened. bridgette Administered Medications: No medications were administered Disposition Summary: 12/06/23 00:33 Discharge Ordered Notes: Location: Home bridgette Problem: new bridgette Symptoms: have improved bridgette Condition: Stable bridgette Diagnosis - Alcohol abuse bridgette - Alcohol abuse counseling and surveillance bridgette Followup: bridgette - With: Private Physician - When: 2 - 3 days - Reason: Recheck today's complaints, Continuance of care, Re-evaluation by your physician Discharge Instructions: - Discharge Summary Sheet bridgette - Alcohol Intoxication bridgette - Alcohol Use Disorder bridgette - Alcohol Intoxication, Cslq-eh-Qiez bridgette - Alcohol Abuse and Nutrition bridgette - Alcohol Abuse and Dependence Information, Adult bridgette Forms: - Medication Reconciliation Form bridgette - Antibiotic Education bridgette - Prescription Opioid Use bridgette - Patient Portal Instructions bridgette - Leadership Thank You Letter bridgette Signatures: Deandre Mckeon MD MD cha McDonald, Brad RN RN bm8
--- NOTE | 2023-12-06 00:47 | ER ---
Nurse's Notes [facility] Name: Walt Velazquez Age: 52 yrs Sex: Male : 1970 Arrival Date: 12/06/2023 Time: 00:25 Bed 8 Private MD: Diagnosis: Alcohol abuse;Alcohol abuse counseling and surveillance Presentation: 12/05 00:36 Chief complaint: Patient states: I had an I earlier and it started bleeding but it bm8 stopped before EMS picked me up. Coronavirus screen: At this time, the client does not indicate any symptoms associated with coronavirus-19. Ebola Screen: No symptoms or risks identified at this time. Initial Sepsis Screen: Does the patient meet any 2 criteria? No. Patient's initial sepsis screen is negative. Does the patient have a suspected source of infection? No. Patient's initial sepsis screen is negative. Risk Assessment: Do you want to hurt yourself or someone else? Patient reports no desire to harm self or others. Onset of symptoms is unknown. 00:36 Method Of Arrival: EMS: [facility] bm8 00:36 Acuity: LATASHA 5 bm8 Triage Assessment: 00:38 General: Appears in no apparent distress. comfortable, Behavior is calm. Pain: Denies bm8 pain. EENT: No deficits noted. No signs and/or symptoms were reported regarding the EENT system. Neuro:. Neuro: No deficits noted. Kinsey Agitation-Sedation Scale (RASS): +2 Agitated. Cardiovascular: No deficits noted. Respiratory: No deficits noted. Derm: No deficits noted. No signs and/or symptoms reported regarding the dermatologic system. Historical: - Allergies: 00:38 Trazodone; too strong for him; bm8 - PMHx: 00:38 Alcoholism; Hypertensive disorder; Parkinsons; Bipolar II; Seizure; bm8 - PSHx: 00:38 toe amputation (e); bm8 - Immunization history:: Adult Immunizations unknown. - Infectious Disease History:: Denies. - Family history:: not pertinent. - Social history:: Smoking status: Patient reports the use of cigarette tobacco products. Screenin:44 [facility] ED Fall Risk Assessment (Adult) History of falling in the last 3 months, bm8 including since admission No falls in past 3 months (0 pts) Confusion or Disorientation No (0 pts) Intoxicated or Sedated No (0 pts) Impaired Gait No (0 pts) Mobility Assist Device Used No (0 pt) Altered Elimination No (0 pt) Score/Fall Risk Level 0 - 2 = Low Risk Oriented to surroundings, Maintained a safe environment, Educated pt \T\ family on fall prevention, incl call for assistance when getting out of bed. Abuse screen: Denies threats or abuse. Nutritional screening: No deficits noted. Tuberculosis screening: No symptoms or risk factors identified. Assessment: 00:44 Reassessment: No changes from previously documented assessment. bm8 Vital Signs: 00:36 bm8 00:36 pt left before vital signs could be obtained bm8 ED Course: 00:27 Patient arrived in ED. 3 00:27 Deandre Mckeon MD is Attending Physician. bridgette 00:35 Venancio Brown, RN is Primary Nurse. bm8 00:38 Triage completed. bm8 00:38 Arm band placed on pt left before arm band could be placed. bm8 00:44 Bed in low position. Provided Education on: no education given, pt left before bm8 education could be delivered. 00:44 No provider procedures requiring assistance completed. Patient did not have IV access bm8 during this emergency room visit. Administered Medications: No medications were administered Medication: 00:44 VIS not applicable for this client. bm8 Outcome: 00:33 Discharge ordered by . [facility] 00:44 Discharged to home ambulatory, bm8 00:44 Condition: stable 00:44 Discharge instructions given to patient, Instructed on discharge instructions, Demonstrated understanding of instructions, 00:46 Patient left the ED. 8 Signatures: Deandre Mckeon MD MD cha Able, Lacie RN RN [facility] Venancio Brown, ROBERTO RN [facility]
== END 2023-12-06 00:46 | disposition home or self-care (01) ==
LOC: ER 00:25
DX: F10.20 Alcohol dependence, uncomplicated (principal); Z71.41 Alcohol abuse counseling and surveillance of alcoholic
CPT/HCPCS: 99283

== ENCOUNTER 2023-12-07 17:52 | Emergency (ER) | payer SELFPAY ==
--- OUTSIDE RECORDS SUMMARY | 2023-12-07 18:07 | XMS REPORT | Continuity of Care Document ---
Author Name Unknown Address [address] [facility] [address] [place] [address] [facility] Address [address] [facility] [address] [place] [address] Care Team Providers Care Board Layer Name Role Phone Pcp-None Primary Care Physician Unavailab Sulaiman Armenta DO Attending Clinician [phone] HEMANT KLEIN Attending Clinician Unavailable Hemant Klein MD Attending Clinician [phone] [place] Attending Clinician Unavailab JESSICA Gallardo Attending Clinician Unavailable Rayray Driscoll MD Attending Clinician + Jessica Prado MD Attending Clinician [phone] Oswald Murphy MD Attending Clinician [phone] DIYA CHOWDHURY Attending Clinician Unavailab Diya Mackey DO Attending Clinician +[phone] Fidel Cuellar Attending Clinician Unavailable DIRK YARBROUGH Attending Clinician Unavailable Leticia Rowland Attending Clinician [phone] Dirk Yarbrough MD Attending Clinician [phone] Faye Portillo LVN Attending Clinician [phone] Pia Reddy Attending Clinician [phone] Vinnie Navarro Attending Clinician Unavailable OSWALD MURPHY Admitting Clinician Unavailable Oswald Murphy MD Admitting Clinician [phone] DIYA CHOWDHURY Admitting Clinician UnavailLeticia Gaytan Admitting Clinician Unavailable JESSICA PRADO Admitting Clinician Unavailable Jessica Prado MD Admitting Clinician [phone] Payers Payer Name Policy Type Policy Number Effective Date Expirati on Date Source Problems Condition Name Condition Details Condition Category Status Onset Date Resolution Date Last Treatment Date Treating Clinician Comments Source Alcohol withdrawal syndrome with complicati on Alcohol withdrawal syndrome with complicati on Disease Active 08-10 00:00: 00 [facility] Type 2 diabetes mellitus with other specified complicati on Type 2 diabetes mellitus with other specified complicati on Disease Active 12-29 00:00: 00 [facility] Dyslipidem ia Dyslipidem ia Disease Active 12-29 00:00: 00 [facility] Chest pain, unspecifie d type Chest pain, unspecifie d type Disease Active 12-28 00:00: 00 [facility] Priapism Priapism Disease Active 2013-06 1-06 00:00: 00 [facility] Allergies, Adverse Reactions, Alerts Allergy Name Allergy Type Status Severity Reaction(s) Onset Date Inactive Date Treating Clinician Comments Source No Known Drug Allergie s DA Active U 4-25 00:00: 00 [facility] No Known Drug Allergie s DA Active U 0 9-16 00:00: 00 [facility] No Known Drug Allergie s DA Active U 0 3-29 00:00: 00 [facility] No Known Drug Allergie s DA Active U 2019-06 2-16 00:00: 00 [facility] No Known Drug Allergie s DA Active U 2019-06 2-15 00:00: 00 [facility] No Known Drug Allergie s DA Active U 2019-06 2-02 00:00: 00 [facility] Trazodon e Propensi ty to adverse reaction s Active Other - See comments 10-06 00:00: 00 [facility] TRAZODON E DRUG INGREDI Active Other-Cmnt 10-06 00:00: 00 [facility] Social History Social Habit Start Date Stop Date Quantity Comments Source History of tobacco use Cigarette Smoker [facility] Exposure to SARS-CoV-2 (event) 2022-11-01 00:00:00 2022-11-11 13:57:00 Not sure [facility] Tobacco use and exposure 2022-08-10 00:00:00 2022-08-10 00:00:00 User of smokeless tobacco [facility] Alcohol intake 2022-08-10 00:00:00 2022-08-10 00:00:00 Current drinker of alcohol (finding) [facility] Tobacco Comment 2022-08-10 00:00:00 2022-08-10 00:00:00 1/2 a pack a day [facility] Alcoholic beverage intake 2022-08-10 00:00:00 2022-08-10 00:00:00 Current drinker of alcohol (finding) [facility] History of Social function 2022-08-10 00:00:00 2022-08-10 00:00:00 [facility] Sex assigned at 1970 00:00:00 1970 00:00:00 [facility] Smoking Status Start Date Stop Date Source Smokes tobacco daily 2022-08-10 00:00:00 [facility] Medications Ordered Medication Name Filled Medication Name Start Date Stop Date Current Medication? Ordering Clinician Indication Dosage Frequency Signature (SIG) Comments Components Source NaCl 0.9% (NS) bolus infusion 1,000 mL 11-11 19:45: 00 11-11 20:23 :00 No 1000mL at 999 mL/hr, 1,000 mL, IV Piggyback, ONCE, 1 dose, On Thu11/11/22 at 1445, STAT [facility] multivitami n tablet 1 tablet 2- 15:00: 00 Yes 1{tbl} 1 tablet, Oral, DAILY, First dose on Thu08/12/22 at 0900, Until Discontinu ed, Routine [facility] foLIC acid (FOLATE) tablet 1 mg 08-12 15:00: 00 Yes 1mg 1 mg, Oral, DAILY, First dose on Thu08/12/22 at 0900, Until Discontinu ed, Routine [facility] foLIC acid 1 mg tablet 08-12 00:00: 00 09-12 04:59 :00 No [id number] 1mg Take 1 tablet by mouth in the morning for 30 days. [facility] oxazepam (SERAX) capsule 15 [...] Thu08/13/22 at 0600, Routine [Order 2 End] [facility] thiamine (VITAMIN B1) tablet 100 mg 08-11 16:15: 00 Yes 100mg 100 mg, Oral, DAILY, First dose on Thu08/11/22 at 1015, Until Discontinu ed, Routine [facility] enoxaparin (LOVENOX) injection 40 mg 08-10 23:00: 00 Yes 40mg 40 mg, Subcutaneo us, DAILY, First dose on Thu08/10/22 at 1700, Until Discontinu ed, Routine [facility] NaCl 0.9% (NS) IV infusion [...] Until Discontinu ed, 50 mL Univers y [facility] thiamine (VITAMIN B1) 100 mg in NaCl 0.9% (NS) piggyback 08-10 15:00: 00 08-10 16:08 :00 No 100mg IV Piggyback, DAILY, 1 dose, First dose on 08/10/22 at 0900, 50 mL [facility] LORazepam (ATIVAN) injection 2 mg 08-10 14:52: 57 Yes 2mg 2 mg, Slow IV Push, Q4HPRN, Starting on 08/10/22 at 0852, Until Discontinu ed, Routine, Seizures, Agitation, Anxiety [facility] Sliding Scale Insulin-Reg ular + Fsbg Testing 08-10 13:30: 00 Yes Subcutaneo us, AC+HS, First dose on Thu08/10/22 at 0730, Until Discontinu ed, Routine [facility] oxazepam (SERAX) capsule 15 mg 08-10 12:08: 05 Yes 15mg 15 mg, Oral, Q4HPRN, Starting on Thu08/10/22 at 0608, Until Discontinu ed, Routine, Only while awake for DBP equal to or greater than 100, HR equal to or greater than 100. [facility] dextrose 10% (D10W) bolus infusion [...] blood glucose is < 80 mg/dL, repeat.
[facility] glucagon (GLUCAGEN DIAGNOSTIC KIT) injection 1 mg 08-10 12:03: 20 Yes 1mg 1 mg, Intramuscu lar, PRN, Starting on Thu08/10/22 at 0603, Until Discontinu ed, JACIEL, Blood Glucose < or = 70 mg/dL and patient is NPO, unable to swallow or has mental changes. [facility] ondansetron (ZOFRAN (PF)) injection 4 mg 08-10 12:02: 53 Yes 4mg 4 mg, Slow IV Push, Q6HPRN, Starting on Thu08/10/22 at 0602, Until Discontinu ed, Routine, Nausea and Vomiting (N/V) [facility] ibuprofen (MOTRIN IB) tablet 200 mg 08-10 12:02: 45 Yes 200mg 200 mg, Oral, Q6HPRN, Starting on Thu08/10/22 at 0602, Until Discontinu ed, Routine, Pain (scale 1-3) [facility] NaCl 0.9% (NS) bolus infusion 1,000 mL 08-10 10:15: 00 08-10 13:00 :00 No 1000mL at 999 mL/hr, 1,000 mL, IV Infusion, ONCE, 1 dose, On Thu08/10/22 at 0415, STAT [facility] LORazepam (ATIVAN) injection 0.5 mg 08-10 09:15: 00 08-10 09:19 :00 No .5mg 0.5 mg, Slow IV Push, ONCE, 1 dose, On Thu08/10/22 at 0315, STAT [facility] LORazepam (ATIVAN) injection 1 mg 08-10 08:00: 00 08-10 07:05 :00 No 1mg 1 mg, Slow IV Push, ONCE NOW, 1 dose, On 08/10/22 at 0200, STAT [facility] thiamine (VITAMIN B1) injection 100 mg 08-10 06:45: 00 08-10 06:52 :00 No 100mg 100 mg, Intravenou s, ONCE, 1 dose, [facility] 08/10/22 [facility] 0045[facility] 1 mg 08-10 05:15: 00 08-10 05:22 :00 No 1mg 1 mg, Slow IV Push, ONCE, 1 dose, On 08/09/22 at 2315, STAT [facility] ketorolac (TORADOL) injection 15 mg 2021-0616 16:00: 00 04-06 14:50 :00 No 15mg 15 mg, Slow IV Push, ONCE, 1 dose, On 04/06/22 at 1100, [facility] (ZOFRAN (PF)) [facility] 4 mg 2021-06 15:45: 00 04-06 14:50 :00 No 4mg 4 mg, Slow IV Push, ONCE, 1 dose, On 04/06/22 at 1045, [facility] oxazepam (SERAX) capsule 15 mg 12-31 06:28: 17 01-01 06:29 :00 No 15mg 15 mg, Oral, Q12H TAPER, 2 doses, First dose on Thu12/31/21 at 0130, Last dose on Thu12/31/21 at 1330, Routine [facility] multivitami n tablet 12-31 00:00: 00 Yes [id number] 1{tbl} Take 1 tablet by mouth in the morning. [facility] thiamine 100 mg tablet 12-31 00:00: 00 Yes [id number] 100mg Take 1 tablet by mouth in the morning. [facility] aspirin 81 mg chewable tablet 12-31 00:00: 00 Yes [id number] 81mg Take 1 tablet by mouth in the morning. [facility] foLIC acid 1 mg tablet 12-31 00:00: 00 01-31 04:59 :00 No [id number] 1mg Take 1 tablet by mouth in the morning for 30 days. [facility] metFORMIN 500 mg tablet 12-30 00:00: 00 Yes [id number] 500mg Take 1 tablet by mouth in the morning and 1 tablet in the evening. Take with meals. [facility] aspirin chewable tablet 81 mg 12-29 14:00: 00 Yes 81mg 81 mg, Oral, DAILY, First dose on 12/29/21 at 0900, Until Discontinu ed, Routine [facility] sulfur hexafluorid e microsphr (LUMASON) injection 5 mL 12-29 13:45: 00 12-29 13:45 :00 No [id number] 5mL 5 mL, Intravenou s, ONCE, 1 dose, On 12/29/21 at 0845, Routine
manager membership approving Restricted medication : STEFANIE GORMAN [facility] enoxaparin (LOVENOX) injection 40 mg 12-29 13:00: 00 Yes 40mg 40 mg, Subcutaneo us, Q24H, First dose on Thu12/29/21 at 0800, Until Discontinu ed, Routine [facility] Sliding Scale Insulin - Lispro (HumaLOG) + Fsbg Testing 12-29 13:00: 00 Yes Subcutaneo us, TID MEALS+HS, First dose on Thu12/29/21 at 0800, Until Discontinu ed, Routine [facility] diazePAM (VALIUM) injection 10 mg 12-29 05:30: 00 12-29 04:40 :00 No 10mg 10 mg, Intravenou s, ONCE, 1 dose, On 12/29/21 at 0030, Routine [facility] diazePAM (VALIUM) injection 10 mg 12-29 04:15: 00 12-29 03:17 :00 No 10mg 10 mg, Intravenou s, ONCE, 1 dose, On 12/28/21 at 2315, Routine [facility] diazePAM (VALIUM) injection 5 mg 12-29 03:45: 01 Yes 5mg 5 mg, Intravenou s, QIDPRN, Starting on 12/28/21 at 2245, Until Discontinu ed, Routine, Seizures, Agitation [facility] foLIC acid (FOLATE) tablet 1 mg 12-29 03:45: 00 Yes 1mg 1 mg, Oral, DAILY, First dose on 12/28/21 at 2245, Until Discontinu ed, Routine [facility] thiamine (VITAMIN B1) tablet 100 mg 12-29 03:45: 00 Yes 100mg 100 mg, Oral, DAILY, First dose (after last modificati on) on 12/28/21 at 2245, Until Discontinu ed, Routine [facility] glucagon (GLUCAGEN DIAGNOSTIC KIT) injection 1 mg 12-29 03:42: 19 Yes 1mg 1 mg, Intramuscu lar, PRN, Starting on 12/28/21 at 2242, Until Discontinu ed, JACIEL, Blood Glucose < or = 70 mg/dL and patient is unable to swallow or has mental changes. [facility] dextrose 10% (D10W) bolus infusion [...] blood glucose is < 80 mg/dL, repeat.
[facility] LORazepam (ATIVAN) injection 1 mg 12-29 03:30: 00 12-29 02:32 :00 No 1mg 1 mg, Intravenou s, ONCE, 1 dose, On 12/28/21 at 2230, Routine
Is the medication being used for status epilepticu s? No [facility] oxazepam (SERAX) capsule 15 mg 12-29 00:28: 20 Yes 15mg 15 mg, Oral, Q4HPRN, Starting on 12/28/21 at 1928, Until Discontinu ed, Routine, Only while awake for DBP equal to or greater than 100, HR equal to or greater than 100. [facility] ondansetron (ZOFRAN (PF)) injection 4 mg 12-29 00:23: 47 Yes 4mg 4 mg, Slow IV Push, Q6HPRN, Starting on 12/28/21 at 1923, Until Discontinu ed, Routine, Nausea and Vomiting (N/V) [facility] acetaminoph en (TYLENOL) tablet 650 mg 12-29 00:23: 37 Yes 650mg 650 mg, Oral, Q6HPRN, Starting on 12/28/21 at 1923, Until Discontinu ed, Routine, Pain (scale 1-3), Temp > 38.5 C [facility] chlordiazeP OXIDE (LIBRIUM) capsule 25 mg 12-28 23:15: 00 12-28 23:24 :00 No 25mg 25 mg, Oral, ONCE, 1 dose, On 12/28/21 at 1815, JACIEL [facility] NaCl 0.9% (NS) bolus infusion 2,000 mL 12-28 22:45: 00 12-28 23:18 :00 No 2000mL at 999 mL/hr, 2,000 mL, IV Infusion, ONCE, 1 dose, On 12/28/21 at 1745, JACIEL [facility] LORazepam (ATIVAN) injection 1 mg 12-28 20:45: 00 12-28 20:49 :00 No 1mg 1 mg, Slow IV Push, ONCE, 1 dose, On 12/28/21 at 1545, STAT
Is the medication being used for status epilepticu s? No [facility] acetaminoph en (TYLENOL) 500 mg tablet 10-06 00:00: 00 Yes 500mg Take 1 Tab by mouth every 6 (six) hours as needed for Pain. [facility] Vital Signs Vital Name Observation Time Observation Value Comments S tyrese Systolic blood pressure 2023-11-05 21:00:00 106 mm[Hg] [facility] Diastolic blood pressure 2023-11-05 21:00:00 70 mm[Hg] [facility] Heart rate 2023-11-05 21:00:00 74 /min [facility] Body temperature 2023-11-05 21:00:00 36.5 Theresa [facility] Respiratory rate 2023-11-05 21:00:00 21 /min [facility] Oxygen saturation in Arterial blood by Pulse oximetry 2023-11-05 21:00:00 98 /min [facility] Body height 2023-11-05 19:59:00 160 cm [facility] Body weight 2023-11-05 19:59:00 63.504 kg [facility] BMI 2023-11-05 19:59:00 24.80 kg/m2 [facility] Systolic blood pressure 2022-11-11 20:31:31 116 mm[Hg] [facility] Diastolic blood pressure 2022-11-11 20:31:31 77 mm[Hg] [facility] Heart rate 2022-11-11 20:31:31 84 /min [facility] Respiratory rate 2022-11-11 20:31:31 12 /min [facility] Oxygen saturation in Arterial blood by Pulse oximetry 2022-11-11 20:31:31 90 /min [facility] Body temperature 2022-11-11 18:49:00 37.11 Theresa [facility] Body height 2022-11-11 18:49:00 160 cm [facility] Body weight 2022-11-11 18:49:00 68.04 kg Univ [facility] BMI 2022-11-11 18:49:00 26.57 kg/m2 [facility] Body temperature 2022-08-11 14:00:00 36.5 Theresa [facility] Systolic blood pressure 2022-08-11 10:00:00 116 mm[Hg] [facility] Diastolic blood pressure 2022-08-11 10:00:00 71 mm[Hg] [facility] Heart rate 2022-08-11 10:00:00 70 /min [facility] Respiratory rate 2022-08-11 10:00:00 16 /min [facility] Body weight 2022-08-11 10:00:00 65.499 kg [facility] BMI 2022-08-11 10:00:00 25.58 kg/m2 [facility] Oxygen saturation in Arterial blood by Pulse oximetry 2022-08-11 10:00:00 100 /min [facility] Body height 2022-08-10 22:12:00 160 cm [facility] Systolic blood pressure 2022-04-06 16:00:00 125 mm[Hg] [facility] Diastolic blood pressure 2022-04-06 16:00:00 75 mm[Hg] [facility] Heart rate 2022-04-06 16:00:00 87 /min [facility] Respiratory rate 2022-04-06 16:00:00 22 /min [facility] Oxygen saturation in Arterial blood by Pulse oximetry 2022-04-06 16:00:00 98 /min [facility] Body temperature 2022-04-06 14:41:00 37 Theresa [facility] Body height 2022-04-06 14:41:00 160 cm [facility] Body weight 2022-04-06 14:41:00 63.504 kg [facility] BMI 2022-04-06 14:41:00 24.80 kg/m2 [facility] Systolic blood pressure 2022-01-20 02:27:00 121 mm[Hg] [facility] Diastolic blood pressure 2022-01-20 02:27:00 75 mm[Hg] [facility] Heart rate 2022-01-20 02:27:00 79 /min [facility] Respiratory rate 2022-01-20 02:27:00 12 /min [facility] Oxygen saturation in Arterial blood by Pulse oximetry 2022-01-20 02:27:00 98 /min [facility] Body temperature 2022-01-19 22:19:00 36.44 Theresa [facility] Body weight 2022-01-19 22:19:00 60.328 kg [facility] BMI 2022-01-19 22:19:00 23.56 kg/m2 [facility] Systolic blood pressure 2021-12-30 20:52:00 134 mm[Hg] [facility] Diastolic blood pressure 2021-12-30 20:52:00 76 mm[Hg] [facility] Heart rate 2021-12-30 20:52:00 67 /min [facility] Body temperature 2021-12-30 20:26:00 36.67 Theresa [facility] Oxygen saturation in Arterial blood by Pulse oximetry 2021-12-30 20:26:00 99 /min [facility] Respiratory rate 2021-12-30 16:21:00 18 /min [facility] Body weight 2021-12-30 08:27:00 60.464 kg [facility] BMI 2021-12-30 08:27:00 23.61 kg/m2 [facility] Body height 2021-12-29 01:29:00 160 cm [facility] Procedures Procedure Date / Time Performed Performing Clinician Source XR CHEST 1 VW 2023-11-05 20:09:00 Sulaiman Hawkins [facility] LIPASE 2023-11-05 20:01:00 Sulaiman Hawkins [facility] MAGNESIUM 2023-11-05 20:01:00 Sulaiman Hawkins [facility] TROPONIN I 2023-11-05 20:01:00 Singer Sulaiman [facility] COMP. METABOLIC PANEL ([id number]) 2023-11-05 20:01:00 Singer [facility] CBC WITH DIFF 2023-11-05 20:01:00 Singer [facility] N-TERMINAL PRO-BNP 2023-11-05 20:01:00 Singer [facility] MAGNESIUM 2022-11-11 19:05:00 Jessica [facility] BASIC METABOLIC PANEL (NA, K, CL, CO2, GLUCOSE, BUN, CREATININE, CA) 2022-11-11 19:05:00 Jessica [facility] ETHANOL 2022-11-11 19:05:00 Jessica [facility] CBC WITH DIFF 2022-11-11 19:05:00 Jessica [facility] POCT GLUCOSE (AUTOMATED) 2022-08-11 13:36:00 Arvind Prado [facility] PHOSPHORUS 2022-08-11 10:35:00 [facility] 2022-08-11 10:35:00 [facility] AMMONIA, PLASMA 2022-08-11 10:35:[facility] MET[facility]OLIC PAN[facility] ([id number]) 2022-08-11 10:35:00 Jessica Prado [facility] CBC WITH DIFF 2022-08-11 10:35:00 Oswald Murphy [facility] POCT GLUCOSE (AUTOMATED) 2022-08-11 02:15:00 Arvind Prado [facility] POCT GLUCOSE (AUTOMATED) 2022-08-10 23:10:00 Arvind Prado [facility] POCT GLUCOSE (AUTOMATED) 2022-08-10 18:20:00 Arvind Prado [facility] POCT GLUCOSE (AUTOMATED) 2022-08-10 14:11:00 Arvind Prado [facility] POCT GLUCOSE (AUTOMATED) 2022-08-10 10:59:00 Gopal Driscoll [facility] COVID-19 (ID NOW RAPID TESTING) 2022-08-10 07:17:00 Rayray Driscoll [facility] LAB ONLY COVID INTERPRETATION 2022-08-10 07:17:00 Rayray Driscoll [facility] HB ECG ROUTINE & RHYTHM STRIP 2022-08-10 06:03:48 Rayray Driscoll [facility] URINALYSIS 2022-08-10 05:46:00 [facility] URINE DRUG (IMMUNOASSAY) - COMPREHENSIVE DRUG SCREEN W/O REFLEX 2022-08-10 05:45:00 Rayray Driscoll [facility] CREATINE KINASE 2022-08-10 05:16:00 [facility] 2022-08-10 05:16:00 [facility] MAGNESIUM 2022-08-10 05:16:00 Rayray Driscoll [facility] TROPONIN I 2022-08-10 05:16:00 Rayray Driscoll [facility] COMP. METABOLIC PANEL ([id number]) 2022-08-10 05:16:00 Rayray Driscoll [facility] ETHANOL 2022-08-10 05:16:00 Rayray Driscoll [facility] CBC WITH DIFF 2022-08-10 05:16:00 Rayray Driscoll [facility] N-TERMINAL PRO-BNP 2022-08-10 05:16:00 Rayray Driscoll [facility] CRITICAL CARE 2022-08-10 04:52:00 Rayray Driscoll [facility] XR CHEST 1 VW 2022-04-06 14:51:50 [facility] 2022-04-06 14:42:00 Diya Chowdhury [facility] TROPONIN I 2022-04-06 14:42:00 Diya Chowdhury [facility] COMP. METABOLIC PANEL ([id number]) 2022-04-06 14:42:00 Diya Chowdhury [facility] CBC WITH DIFF 2022-04-06 14:42:00 [facility] PROTHROMBIN TIME / INR 2022-04-06 14:42:00 Diya Chowdhury [facility] ACTIVATED PARTIAL THRMPLAS NELDA 2022-04-06 14:42:00 Diya Chowdhury [facility] LACTIC ACID WHOLE BLOOD 2022-01-20 00:22:00 Leticia Baldwin [facility] URINE DRUG (IMMUNOASSAY) - COMPREHENSIVE DRUG SCREEN 2022-01-19 23:10:00 Leticia Baldwin [facility] URINALYSIS 2022-01-19 23:10:00 Leticia Baldwin [facility] TROPONIN I 2022-01-19 23:00:00 Leticia Baldwin [facility] COMP. METABOLIC PANEL ([id number]) 2022-01-19 23:00:00 Leticia Baldwin [facility] LITHIUM 2022-01-19 23:00:00 Leticia Baldwin [facility] ETHANOL 2022-01-19 23:00:00 Leticia Baldwin [facility] CBC WITH DIFF 2022-01-19 23:00:00 Leticia Baldwin [facility] COVID-19 (ID NOW RAPID TESTING) 2022-01-19 23:00:00 Leticia Baldwin [facility] CT HEAD WO CONTRAST 2022-01-19 22:49:00 Leticia Baldwin [facility] XR CHEST 1 VW 2022-01-19 22:41:00 Leticia Baldwin [facility] POCT GLUCOSE (AUTOMATED) 2022-01-19 22:25:00 Leticia Baldwin [facility] POCT GLUCOSE (AUTOMATED) 2021-12-30 21:55:00 Arvind Prado [facility] POCT GLUCOSE (AUTOMATED) 2021-12-30 16:21:00 Arvind Prado [facility] POCT GLUCOSE (AUTOMATED) 2021-12-30 12:30:00 Arvind Prado [facility] HEPATIC FUNCTION PANEL ([id number]) (ALB,T.PRO,BILI T,BU/BC,ALT,AST,ALK PHOS) 2021-12-30 09:28:00 Maira Gaitan [facility] POCT GLUCOSE (AUTOMATED) 2021-12-30 02:11:00 Arvind Prado [facility] POCT GLUCOSE (AUTOMATED) 2021-12-29 21:41:00 Arvind Prado [facility] POCT GLUCOSE (AUTOMATED) 2021-12-29 16:37:00 Arvind Prado gregoria [facility] TRANSTHORACIC ECHO (TTE) COMPLETE W/ CONTRAST 2021-12-29 13:05:00 Jessica Prado [facility] POCT GLUCOSE (AUTOMATED) 2021-12-29 12:41:00 Arvind Prado [facility] TROPONIN I 2021-12-29 09:42:00 [facility] TROPONIN I 2021-12-29 04:55:00 Jessica Prado [facility] CT HEAD WO CONTRAST 2021-12-28 21:18:22 Poppy Renteria [facility] AMMONIA, PLASMA 2021-12-28 21:00:00 Pia Renteria [facility] COVID-19 (ID NOW RAPID TESTING) 2021-12-28 20:42:00 Pia Renteria [facility] LAB ONLY COVID INTERPRETATION 2021-12-28 20:42:00 Pia Renteria [facility] [facility] URINE DRUG (IMMUNOASSAY) - COMPREHENSIVE DRUG SCREEN W/O REFLEX 2021-12-28 20:42:00 Pia Renteria [facility] URINALYSIS 2021-12-28 20:40:00 Pia Renteria [facility] N-TERMINAL PRO-BNP 2021-12-28 20:40:00 Corina Renteria [facility] TROPONIN I 2021-12-28 20:40:00 Pia Renteria [facility] THYROID STIMULATING HORMONE 2021-12-28 20:40:00 Jessica Prado [facility] COMP. METABOLIC PANEL (25583) 2021-12-28 20:40:00 Pia Renteria [facility] LIPID PANEL (12920)(TOTAL CHOLESTEROL, TRIGLYCERIDES, HDL) 2021-12-28 20:40:00 Demetrius Langford [facility] ETHANOL 2021-12-28 20:40:00 Demetrius Langford [facility] CBC WITH DIFF 2021-12-28 20:40:00 Pia Renteria [facility] GLYCOSYLATED HEMOGLOBIN (A1C) 2021-12-28 20:40:00 Jessica Prado [facility] PROTHROMBIN TIME / INR 2021-12-28 20:40:00 Lesly Renteria [facility] XR CHEST 1 VW 2021-12-28 20:16:00 Pia Renteria [facility] HB ECG ROUTINE & RHYTHM STRIP 2021-12-28 20:04:59 Pia Renteria [facility] Encounters Start Date/Time End Date/Time Encounter Type Admission Type Attending [facility] Facility Care Department Encounter ID Source 2021-09-17 16:45:00 Inpatient [facility] [id number] [facility] 2020-06-06 16:07:00 Inpatient [facility] [id number] 05 [facility] 2020-06-06 06:20:00 Inpatient [facility] [id number] 77 [facility] 2020-06-05 19:35:00 Inpatient [facility] [id number] 25 [facility] 2020-05-23 19:53:00 Inpatient [facility] [id number] 39 [facility] 2020-05-23 19:53:00 Inpatient [facility] [id number] 39 [facility] 2023-11-05 14:54:00 2023-11-05 16:27:00 Emergency Sulaiman Hawkins [facility] 1.2.840.114 350.1.13.10 4.2.7.2.686 [id number] [facility] 2022-11-11 13:50:00 2022-11-11 16:07:00 Emergency X HEMANT KLEIN [facility] ERT [id number] [facility] 2022-11-11 13:50:00 2022-11-11 16:07:00 Emergency Hemant Klein [facility] 1.2.840.114 350.1.13.10 4.2.7.2.686 [id number] [facility] 2022-10-14 20:59:00 2022-10-14 20:59:00 Emergency [facility] [id number] 66 [facility] 2022-10-14 20:59:00 2022-10-14 20:59:00 Emergency Emergency Pan Pinto [facility] [id number] 66 [facility] 2022-08-09 22:59:00 2022-08-11 13:02:00 Outpatient X JESSICA PRADO [facility] MARGO [id number] [facility] 2022-08-09 22:59:00 2022-08-11 13:02:00 Emergency Rayray Driscoll Jelani Edionwe [facility] 1.2.840.114 350.1.13.10 4.2.7.2.686 [id number] [facility] 2022-04-06 09:38:00 2022-04-06 11:42:00 Emergency X DIYA CHOWDHURY [facility] ERT [id number] [facility] 2022-04-06 09:38:00 2022-04-06 11:42:00 Emergency EnrikemarianneDiya nelson [facility] 1.2.840.114 350.1.13.10 4.2.7.2.686 [id number] [facility] 2022-03-07 12:38:00 2022-03-07 12:38:00 Emergency [facility] [id number] [address] [place] [address] 2022-03-07 12:38:00 2022-03-07 12:38:00 Emergency Emergency Fidel Cuellar [facility] [id number] 74 [facility] 2022-01-19 17:18:00 2022-01-19 22:00:00 Emergency X DIRK YARBROUGH [facility] ERT [id number] [facility] 2022-01-19 17:18:00 2022-01-19 22:00:00 Emergency NicolasaLeticia vega Julio C [facility] 1.2.840.114 350.1.13.10 4.2.7.2.686 [id number] [facility] 2021-12-31 00:00:00 2021-12-31 00:00:00 Transition of Care PortilloaFye martinMarlon MASSIEL NAVARRO 1.2.840.114 350.1.13.10 4.2.7.2.686 [id number] [facility] 2021-12-28 14:53:00 2021-12-30 17:42:00 Inpatient X JESSICA PRADO [facility] [id number] [facility] 2021-12-28 14:53:00 2021-12-30 17:42:00 Hospital Encounter Pia Renteria Jelani [facility] 1.2.840.114 350.1.13.10 4.2.7.2.686 [id number] [facility] 2021-09-17 16:47:00 2021-09-17 16:47:00 Emergency [facility] [id number] 35 [facility] 2020-06-06 16:07:00 2020-06-06 16:07:00 Emergency [facility] [id number] 05 [facility] Results Test Description Test Time [...] signs of acute cardiopulmonary disease. 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 The reference range was not used to interpret this result as normal/abnormal. RBC (test code = 789-8) 4.98 See_Comment [Automated [employer] Site[employer]] The system which generated this result transmitted [...] 33.9 g/dL 31.2-35.0 RDW-SD (test code = 45903-7) 46.0 fL 38.5-51.6 RDW-CV (test code = 788-0) 13.5 % 12.1-15.4 PLT (test code = 777-3) 237 See_Comment [Automated messa ge] The system which generated this result transmitted reference range: 150 - 328 10*3/?L. The reference range was not used to interpret this result as normal/abnormal. MPV (test code = 57402-5) 8.9 fL 9.8-13.0 L NRBC/100 WBC (test code = 4594790739) 0.0 See_Comment [Automated me ssage] The system which generated this result transmitted reference range: 0.0 - 10.0 /100 WBCs. The reference range was not used to interpret this result as normal/abnormal. NRBC x10^3 (test code = 7622261069) See_Comment [Automated messa ge] The system which generated this result transmitted reference range: 10*3/?L. The reference range was not used to interpret this result as normal/abnormal. GRAN MAT (NEUT) % (test code = 770-8) 71.2 % IMM GRAN % (test code = 9183102650) 0.30 % LYMPH % (test code = 736-9) 18.2 % MONO % (test code = 5905-5) 8.4 % EOS % (test code = 713-8) 1.0 % BASO % (test code = 706-2) 0.9 % GRAN MAT x10^3(ANC) (test code = 8894816662) 4.86 10*3/uL 1.99-6.95 IMM GRAN x10^3 (test code = 1690550678) 0.00-0.06 LYMPH x10^3 (test code = 731-0) 1.24 10*3/uL 1.09-3.23 MONO x10^3 (test code = 742-7) 0.57 10*3/uL 0.36-1.02 EOS x10^3 (test code = 711-2) 0.07 10*3/uL 0.06-0.53 BASO x10^3 (test code = 704-7) 0.06 10*3/uL 0.01-0.09 Lab Interpretation (test code = 09281-4) [facility]inal[facility] Rflx Cult/Bauug7958-85-12 22:20:00* Test Item Value Reference Range Interpretation Comme nts Color,Urine (test code = UCOL) Yellow Yellow Clarity,Urine (test code = UCLAR) Clear Clear Ph, Urine (test code = UPH) 7.0 5.0-9.0 N Specific [place],Urine (test code = USG) 1.020 1.005-1.030 N [...] code = ULEU) Negative mg/dL Negative Drug Screen,Sfvvx1073-35-62 22:20:00* Test Item Value Reference Range Interpretation [...] UPROP) Negative Negative Complete Blood Count Auto [id number] 21:21:00* Test Item Value Reference Range Interpretation [...] code = NRBCP) 0 % Comprehensive Metabolic Ohixv5481-80-52 21:21:00* Test Item Value Reference Range Interpretation [...] a race coefficient. Additional information canbe found at:[email or web address]_[email or web address] 5.pdf ([email or web address]) [Automated message] The system [...] = ALP) 134 U/L 46-116 H Ethanol Azaxk2635-58-56 21:21:00* Test Item Value Reference Range Interpretation Comme nts Ethanol (test code = ETOH) < 3 mg/dL The pharmacologi yudy response to blood alcohol levels mayvary from individual to individual. The fatal concentrationhas been reported to be >400mg/dL. POCT GLUCOSE (AUTOMATED)2022-08-11 13:40:35* Test Item Value Reference Range Interpretation Comme nts POCT GLU (test code = 7865408152) 121 mg/dL 70-110 H Lab Interpretation (test cod e = 23396-9) Abnormal [facility] GLUCOSE (AUTOMATED)2022-08-11 02:18:58* Test Item Value Reference Range Interpretation Comme nts POCT GLU (test code = 8971999696) 183 mg/dL 70-110 H Lab Interpretation (test cod e = 66500-0) Abnormal [facility] GLUCOSE (AUTOMATED)2022-08-10 23:16:11* Test Item Value Reference Range Interpretation Comme nts POCT GLU (test code = 7653459743) 176 mg/dL 70-110 H Lab Interpretation (test cod e = 12989-5) Abnormal [facility] GLUCOSE (AUTOMATED)2022-08-10 18:22:51* Test Item Value Reference Range Interpretation Comme nts POCT GLU (test code = 1317199930) 165 mg/dL 70-110 H Lab Interpretation (test cod e = 89021-7) Abnormal [facility] GLUCOSE (AUTOMATED)2022-08-10 14:18:05* Test Item Value Reference Range Interpretation Comme nts POCT GLU (test code = 7484240871) 138 mg/dL 70-110 H Lab Interpretation (test cod e = 44067-3) Abnormal [facility] GLUCOSE (AUTOMATED)2022-08-10 11:01:21* Test Item Value Reference Range Interpretation Comme nts POCT GLU (test code = 2810317267) 143 mg/dL 70-110 H Lab Interpretation (test cod e = 10206-3) Abnormal [facility] [id number] 06:51:18* Test Item Value Reference Range Interpretation Comme nts TROPONIN I (test code = 6559533913) 0.008 ng/mL <=0.034 JUAN ALBERTO (test code [...] of biotin. Lab Interpretation (test code = 68479-6) Normal [facility] HospitalN-[facility]MINAL EOO-[id number] 06:47:37* Test Item Value Reference Range Interpretation Comme nts NT-proBNP (test code = 5935978453) 37 pg/mL <=125 JUAN ALBERTO (test code = JUAN ALBERTO) Biotin has been reported to cause a negative bias, interpret results relative to patient's use of biotin. 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 METABOLIC PANEL (46170)2022-08-10 06:19:15* Test Item Value Reference Range Interpretation Comme nts NA (test code = 8393943434) 135 mmol/L 135-145 K (test code = 2930701752) 4.3 mmol/L 3.5-5.0 CL (test code = 7846695371) 98 mmol/L 98-108 CO2 TOTAL (test code = 2464883762) 30 mmol/L 23-31 AGAP (test code = 7461830305) 7 2-16 BUN (test code = 6737557108) 11 mg/dL 7-23 GLUCOSE (test code = 6741232876) 153 mg/dL 70-110 H CREATININE (test code = 7727054836) 0.77 mg/dL 0.60-1.25 TOTAL BILI (test code = 0790587646) 0.9 mg/dL 0.1-1.1 CALCIUM (test code = 9824139671) 10.0 mg/dL 8.6-10.6 T PROTEIN (test code = 6320429484) 7.7 g/dL 6.3-8.2 ALBUMIN (test code = 2684676009) 4.6 g/dL 3.5-5.0 ALK PHOS (test code = 8200474702) 92 U/L 34-122 ALTv (test code = 1742-6) 35 U/L 5-50 AST(SGOT) (test code = 6113542526) 42 U/L 13-40 H eGFR (test code = 9692609083) 106.1 mL/min/1.73m2 JUAN ALBERTO (test code = [...] imaging tests). Lab Interpretation (test code = 84941-7) [facility]:19[facility]15* Test Item Value Reference Range Interpretation Comme nts MAGNESIUM (test code = 4249442093) 2.2 mg/dL 1.7-2.4 Lab Interpretation (test cod e = 29239-3) Normal [facility]LIPASE2023-02-19 06:18:55* Test Item Value Reference Range Interpretation Comme nts LIPASE (test code = 9153369490) 18 U/L 0-220 Lab Interpretation (test cod e = 42700-9) Normal [facility] HospitalCREATINE [id number] 06:18:55* Test Item Value Reference Range Interpretation Comme nts CK (test code = 3787408541) 174 U/L 33-194 Lab Interpretation (test cod e = 02008-5) Normal [facility] WITH [id number] 06:02:35* Test Item Value Reference Range Interpretation [...] 32.4 g/dL 31.2-35.0 RDW-SD (test code = 83521-3) 50.2 fL 38.5-51.6 RDW-CV (test code = 788-0) 14.3 % 12.1-15.4 PLT (test code = 777-3) 241 See_Comment [Automated messa ge] The system which generated this result transmitted reference range: 150 - 328 10*3/?L. The reference range was not used to interpret this result as normal/abnormal. MPV (test code = 55000-3) 8.6 fL 9.8-13.0 L NRBC/100 WBC (test code = 6827008566) 0.0 See_Comment [Automated me ssage] The system which generated this result transmitted reference range: 0.0 - 10.0 /100 WBCs. The reference range was not used to interpret this result as normal/abnormal. NRBC x10^3 (test code = 4466304840) See_Comment [Automated messa ge] The system which generated this result transmitted reference range: 10*3/?L. The reference range was not used to interpret this result as normal/abnormal. GRAN MAT (NEUT) % (test code = 770-8) 63.9 % IMM GRAN % (test code = 1214218039) 0.50 % LYMPH % (test code = 736-9) 17.6 % MONO % (test code = 5905-5) 16.5 % EOS % (test code = 713-8) 0.7 % BASO % (test code = 706-2) 0.8 % GRAN MAT x10^3(ANC) (test code = 9102461085) 4.79 10*3/uL 1.99-6.95 IMM GRAN x10^3 (test code = 2874430073) 0.04 10*3/uL 0.00-0.06 LYMPH x10^3 (test code = 731-0) 1.32 10*3/uL 1.09-3.23 MONO x10^3 (test code = 742-7) 1.24 10*3/uL 0.36-1.02 H EOS x10^3 (test code = 711-2) 0.05 10*3/uL 0.06-0.53 L BASO x10^3 (test code = 704-7) 0.06 10*3/uL 0.01-0.09 Lab Interpretation (test code = 60871-7) Abnormal [facility] HospitalGERMANIA [id number] 15:15:32* Test Item Value Reference Range Interpretation Comments TROPONIN I (test code = 1843911968) 0.007 ng/mL See_Comment [Automated message] The system [...] of biotin. Lab Interpretation (test code = 75541-0) Normal [facility] HospitalaPTT2022-10-16 15:08:29* Test Item Value Reference Range Interpretation Comme [facility] APTT Patient (test code = 3173-2) See_Comment [Automated message] The system which generated this result transmitted reference range: 23 - 38 Seconds. The reference range was not used to interpret this result as normal/abnormal. JUAN ALBERTO (test code = JUAN ALBERTO) The [facility] patient population mean normal value for aPTT is 30 seconds. Lab Interpretation (test code = 19737-2) Normal [facility] HospitalPROTHROMBIN TIME / [id number] 15:06:28* Test Item Value Reference Range Interpretation [...] the indications. Lab Interpretation (test code = 70428-7) Normal [facility] HospitalCOMP. METABOLIC PANEL (82697)2022-04-06 15:03:31* Test Item Value Reference Range Interpretation Comme [facility] NA (test code = 7216018582) 136 mmol/L 135-145 K (test code = 5215959587) 5.0 mmol/L 3.5-5 CL (test code = 1781820572) 104 mmol/L 98-108 CO2 TOTAL (test code = 4349159449) 21 mmol/L 23-31 L AGAP (test code = 1397466875) 2-16 BUN (test code = 7420641586) 11 mg/dL 7-23 GLUCOSE (test code = 7991707366) 162 mg/dL 70-110 H CREATININE (test code = 5742723478) 0.52 mg/dL 0.6-1.25 L TOTAL BILI (test code = 9922910728) 1.0 mg/dL 0.1-1.1 CALCIUM (test code = 1831504610) 9.3 mg/dL 8.6-10.6 T PROTEIN (test code = 6947180627) 7.4 g/dL 6.3-8.2 ALBUMIN (test code = 0907767048) 4.4 g/dL 3.5-5 ALK PHOS (test code = 3244571610) 134 U/L 34-122 H ALTv (test code = 1742-6) 17 U/L 5-50 AST(SGOT) (test code = 0712655632) 38 U/L 13-40 eGFR (test code = 6403821101) mL/min/1.73m2 JUAN ALBERTO (test code = JUAN [...] imaging tests). Lab Interpretation (test code = 13223-2) Abnormal [facility] HospitalLIPASE, [id number] 15:03:31* Test Item Value Reference Range Interpretation Comme nts LIPASE (test code = 6739281830) 29 U/L 0-220 Lab Interpretation (test cod e = 55304-6) Normal [facility] HospitalCBC WITH [id number] 14:51:49* Test Item Value Reference Range Interpretation Comme nts WBC (test code = 6690-2) See_Comment [Automated [employer] Site[employer]inder] The system which generated this result transmitted reference range: 4.20 - 10.70 10*3/?L. The reference range was not used to interpret this result as normal/abnormal. RBC (test code = 789-8) See_Comment [Automated [employer] Site[employer]inder] The system which generated this result transmitted [...] 34.0 g/dL 31.2-35 RDW-SD (test code = 51783-3) 45.9 fL 38.5-51.6 RDW-CV (test code = 788-0) 13.3 % 12.1-15.4 PLT (test code = 777-3) See_Comment [Automated [employer] Site[employer]] The system which generated this result transmitted reference range: 150 - 328 10*3/?L. The reference range was not used to interpret this result as normal/abnormal. MPV (test code = 19469-0) 8.4 fL 9.8-13 L NRBC/100 WBC (test code = 8856571606) See_Comment [Automated me ssage] The system which generated this result transmitted reference range: 0.0 - 10.0 /100 WBCs. The reference range was not used to interpret this result as normal/abnormal. NRBC x10^3 (test code = 1002885920) See_Comment [Automated messa ge] The system which generated this result transmitted reference range: 10*3/?L. The reference range was not used to interpret this result as normal/abnormal. GRAN MAT (NEUT) % (test code = 770-8) 63.0 % IMM GRAN % (test code = 3618536157) 0.50 % LYMPH % (test code = 736-9) 25.2 % MONO % (test code = 5905-5) 9.8 % EOS % (test code = 713-8) 0.3 % BASO % (test code = 706-2) 1.2 % GRAN MAT x10^3(ANC) (test code = 2587315842) 3.73 10*3/uL 1.99-6.95 IMM GRAN x10^3 (test code = 4075696791) 0.03 10*3/uL 0-0.06 LYMPH x10^3 (test code = 731-0) 1.49 10*3/uL 1.09-3.23 MONO x10^3 (test code = 742-7) 0.58 10*3/uL 0.36-1.02 EOS x10^3 (test code = 711-2) 0.06-0.53 L BASO x10^3 (test code = 704-7) 0.07 10*3/uL 0.01-0.09 Lab Interpretation (test code = 79232-3) Abnormal [facility], Urinalysis Rflx Cult/Phqxc1043-38-28 13:53:00* Test Item Value Reference Range Interpretation Comme nts Color,Urine (test code = UCOL) Yellow Yellow Clarity,Urine (test code = UCLAR) Cloudy Clear A Ph, Urine (test code = UPH) 7.5 5.0-9.0 N Specific [place],Urine (test code = USG) 1.025 1.005-1.030 N [...] = ULEU) Negative mg/dL Negative UF REFLEXDrug Screen,Zowqg6802-49-46 13:53:00* Test Item Value Reference Range Interpretation [...] UPROP) Negative Negative Complete Blood Count Auto Ljos9038-96-17 12:58:00* Test Item Value Reference Range Interpretation [...] = NRBCP) 0 % Coronavirus PCR, COVID19 Iocpg5544-26-77 12:58:00* Test Item Value Reference Range Interpretation Comme nts Coronavirus PCR, COVID19 Rapid (test code = SARSCOV2) Coronavirus PCR, COVID19 Rapid (test code = UFLQQGM23.1) Reference Range: Negative SARS-CoV-2 PCR Result: (test code = SARS-CoV-2 PCR Result:) Negative by RT-PCR COVID-19 Status: AsymptomaticComprehensive Metabolic Vcbuu7019-50-07 12:58:00* Test Item Value Reference Range Interpretation [...] = ALP) 144 U/L 46-116 H Ethanol Wouze5339-57-96 12:58:00* Test Item Value Reference Range Interpretation Comme nts Ethanol (test code = ETOH) < 3 mg/dL The pharmacologi yudy response to blood alcohol levels mayvary from individual to individual. The fatal concentrationhas been reported to be >400mg/dL. RNWLPAX5191-27-84 01:47:56* Test Item Value Reference Range Interpretation Comme nts Horatio (test code = 9336901512) 0.7 mmol/L 0.6-1.2 JUAN ALBERTO (test code = JUAN ALBERTO) Toxic Range: ? Greater than 1.2 mmol/L Lab Interpretation (test code = 79707-7) Normal [facility] HospitalTR[facility] [id number] 00:26:53* Test Item Value Reference Range Interpretation Comments TROPONIN I (test code = 0814656670) 0.002 ng/mL See_Comment [Automated message] The system [...] of biotin. Lab Interpretation (test code = 99209-0) Normal [facility] HospitalETHANOL2022-08-01 00:18:52 ALCOHOL<10mg/dL01/19/2022 7:18 [facility] Eriwhwqd49-100 Toxic>100 Depression of CHIMNEY BUILDER HELPER>400 Fatalities [facility]ortedUnB[facility]anoCOMP. METABOLIC PANEL (17879)2022-01-20 00:16:16* Test Item Value Reference Range Interpretation Comme nts NA (test code = 6428626781) 137 mmol/L 135-145 K (test code = 1112975951) 4.5 mmol/L 3.5-5 CL (test code = 5835606094) 103 mmol/L 98-108 CO2 TOTAL (test code = 6603573721) 26 mmol/L 23-31 AGAP (test code = 4164747492) 2-16 BUN (test code = 4255971362) 10 mg/dL 7-23 GLUCOSE (test code = 0348831883) 121 mg/dL 70-110 H CREATININE (test code = 8465976389) 0.65 mg/dL 0.6-1.25 TOTAL BILI (test code = 6301900389) 0.8 mg/dL 0.1-1.1 CALCIUM (test code = 3282317852) 11.4 mg/dL 8.6-10.6 H T PROTEIN (test code = 6006771003) 7.2 g/dL 6.3-8.2 ALBUMIN (test code = 7806157649) 4.6 g/dL 3.5-5 ALK PHOS (test code = 4558197015) 112 U/L 34-122 ALTv (test code = 1742-6) 19 U/L 5-50 AST(SGOT) (test code = 5412648157) 26 U/L 13-40 eGFR (test code = 9957608130) mL/min/1.73m2 JUAN ALBERTO (test code = JUAN [...] imaging tests). Lab Interpretation (test code = 60824-4) Abnormal [facility] WITH [id number] 23:43:54* Test Item Value Reference Range Interpretation Comme nts WBC (test code = 6690-2) See_Comment [Automated [employer]] The system which generated this result transmitted reference range: 4.20 - 10.70 10*3/?L. The reference range was not used to interpret this result as normal/abnormal. RBC (test code = 789-8) See_Comment [Automated [employer] Site[employer]inder] The system which generated this result transmitted [...] 34.4 g/dL 31.2-35 RDW-SD (test code = 72323-1) 44.0 fL 38.5-51.6 RDW-CV (test code = 788-0) 12.6 % 12.1-15.4 PLT (test code = 777-3) See_Comment [Automated [employer]] The system which generated this result transmitted reference range: 150 - 328 10*3/?L. The reference range was not used to interpret this result as normal/abnormal. MPV (test code = 09864-3) 9.1 fL 9.8-13 L NRBC/100 WBC (test code = 5222924366) See_Comment [Automated me ssage] The system which generated this result transmitted reference range: 0.0 - 10.0 /100 WBCs. The reference range was not used to interpret this result as normal/abnormal. NRBC x10^3 (test code = 3221061286) See_Comment [Automated messa ge] The system which generated this result transmitted reference range: 10*3/?L. The reference range was not used to interpret this result as normal/abnormal. GRAN MAT (NEUT) % (test code = 770-8) 69.8 % IMM GRAN % (test code = 4397416953) 0.40 % LYMPH % (test code = 736-9) 18.0 % MONO % (test code = 5905-5) 10.9 % EOS % (test code = 713-8) 0.1 % BASO % (test code = 706-2) 0.8 % GRAN MAT x10^3(ANC) (test code = 1490889740) 5.58 10*3/uL 1.99-6.95 IMM GRAN x10^3 (test code = 2100028016) 0.03 10*3/uL 0-0.06 LYMPH x10^3 (test code = 731-0) 1.44 10*3/uL 1.09-3.23 MONO x10^3 (test code = 742-7) 0.87 10*3/uL 0.36-1.02 EOS x10^3 (test code = 711-2) 0.06-0.53 L BASO x10^3 (test code = 704-7) 0.06 10*3/uL 0.01-0.09 Lab Interpretation (test code = 88500-7) Abnormal [facility] GLUCOSE (AUTOMATED)2022-01-19 22:27:41* Test Item Value Reference Range Interpretation Comme nts POCT GLU (test code = [id number]) 123 mg/dL 70-110 H Lab Interpretation (test cod e = 46604-9) Abnormal [facility] GLUCOSE (AUTOMATED)2021-12-30 22:08:16* Test Item Value Reference Range Interpretation Comme nts POCT GLU (test code = 9657280191) 167 mg/dL 70-110 H Lab Interpretation (test cod e = 57568-1) Abnormal [facility] GLUCOSE (AUTOMATED)2021-12-30 16:50:40* Test Item Value Reference Range Interpretation Comme nts POCT GLU (test code = 0580961506) 154 mg/dL 70-110 H Lab Interpretation (test cod e = 62101-2) Abnormal [facility] GLUCOSE (AUTOMATED)2021-12-30 12:38:43* Test Item Value Reference Range Interpretation Comme nts POCT GLU (test code = 6728042869) 164 mg/dL 70-110 H Lab Interpretation (test cod e = 35380-3) Abnormal [facility] GLUCOSE (AUTOMATED)2021-12-30 02:14:58* Test Item Value Reference Range Interpretation Comme nts POCT GLU (test code = 3454382582) 220 mg/dL 70-110 H Lab Interpretation (test cod e = 35432-5) Abnormal [facility] GLUCOSE (AUTOMATED)2021-12-29 21:50:02* Test Item Value Reference Range Interpretation Comme nts POCT GLU (test code = 6327025048) 191 mg/dL 70-110 H Lab Interpretation (test cod e = 41046-9) Abnormal [facility] GLUCOSE (AUTOMATED)2021-12-29 20:15:01* Test Item Value Reference Range Interpretation Comme nts POCT GLU (test code = 3178271512) 163 mg/dL 70-110 H Lab Interpretation (test cod e = 56583-6) [facility]2021-12-29 19:12:22* Test Item Value Reference Range Interpretation Comme nts Height (test code = 8960925631) in Weight (test code = 5142844994) lbs Systolic BP (test code = 3189424821) mmHg Diastolic BP (test code = 5651600603) mmHg Heart Rate (test code = 4298419896) bpm BSA (test code = 4975165458) 1.62 m2 Ao root annulus (test code = 6380995274) 2.45 cm Ao root diam (test code = 1291856096) 2.45 cm Aortic root (test code = 3880239266) 2.45 cm ACS (test code = 8704926111) 1.66 cm LA size (test code = 5612642935) 3.2 cm LVOT diameter (test code = 1588237726) 1.95 cm LVIDD (test code = 6868827773) 3.60 cm IVS (test code = 3817190672) 0.94 cm Interventricular Septum Diastolic Thickness by 2D (test code = 3306193) 0.94 cm LVPWD (test code = 5930767085) 0.80 cm PW (test code = 5270387667) 0.80 cm 0.6-1.1 EF(Teich) (test code = 4356940199) 52.80 % LVIDS (test code = 6857727094) 2.60 cm FS (test code = 2598944433) 27 % EF - 2D (test code = 29529921) 52.80 % LAV(MOD-sp4) (test code = 3686216722) 16.80 mL MV Peak E Jovany (test code = 7052526717) 46.1 cm/s E wave decelartion time (test code = 6067257030) 0.31 s MV Peak A Jovany (test code = 4322515639) 58.1 cm/s E/A ratio (test code = 2743879909) ratio MV E/e' septal (test code = 7801224161) 5.7 cm/s Tapse (test code = 9040541526) 1.60 cm LVOT stroke volume (test code = 6908527013) 52.10 cm3 LVOT peak jovany (test code = 5725598715) 110.6 cm/s LVOT mn grad (test code = 0197481264) mmHg AV LVOT peak gradient (test code = 4712866891) mmHg LVOT peak VTI (test code = 8621670915) 17.4 cm LV V1 mean (test code = 5972381463) 66.10 cm/s Aortic valve mean velocity (test code = 5020068707) 73.0 cm/s Ao peak jovany (test code = 6610830768) 124.6 cm/s Ao VTI (test code = 3233990891) 18.6 cm AV area by cont VTI (test code = 6867456544) 2.8 cm2 AV area peak jovany (test code = 1515373174) 2.7 cm2 Ao max PG (test code = 8746194824) 6.20 mm[Hg] AV peak gradient (test code = 6913222982) mmHg AV valve area (test code = 9123643617) 2.80 cm2 AV mean gradient (test code = 0281795144) mmHg Radiology Study observation (narrative) (test code = 04842-7) JUAN ALBERTO (test code = JUAN ALBERTO) [...] Lumason ultrasound enhancing agent used. [facility]21-[facility]29 12:50:31* Test Item Value Reference Range Interpretation Comme nts POCT GLU (test code = 9340774984) 141 mg/dL 70-110 H Lab Interpretation (test cod e = 38540-2) Abnormal [facility] HospitalTroponin C1798-59-95 10:38:31* Test Item Value Reference Range Interpretation Comments TROPONIN I (test code = 5118057033) 0.003 ng/mL See_Comment [Automated message] The system [...] of biotin. Lab Interpretation (test code = 62817-7) Normal [facility] HospitalLIP[facility] PANEL (05352)(TOTAL CHOLESTEROL, TRIGLYCERIDES, HDL)2021-12-29 05:56:47* Test Item Value Reference Range Interpretation Comme nts CHOL (test code = 7446298183) 168 mg/dL 120-200 HDL (test code = 6585262420) 102 mg/dL See_Comment [Automated [employer]] The system which generated this result transmitted reference range: >=40. The reference range was not used to interpret this result as normal/abnormal. HDLC RATIO (test code = 5848949119) See_Comment [Automated [employer]] The system which generated this result transmitted reference range: <=5.0. The reference range was not used to interpret this result as normal/abnormal. TRIG (test code = 8285535762) 55 mg/dL 30-170 LDL CHOL (test code = 89219-9) 55 mg/dL See_Comment [Automated [employer]] The system which generated this result transmitted reference range: <=160. The reference range was not used to interpret this result as normal/abnormal. VLDL (test code = 7186001413) 11 mg/dL 5-60 Lab Interpretation (test code = 70354-6) Normal [facility] HospitalThyroid Stimulating Hormone (TSH)2021-12-29 05:40:29* Test Item Value Reference Range Interpretation Comme nts TSH (test code = 3556392225) See_Comment Biotin has been reported to cause a negative bias, interpret results relative to patient's use of biotin. [Automated message] The system which generated this result transmitted reference range: 0.45 - 4.70 mIU/L. The reference range was not used to interpret this result as normal/abnormal. Lab Interpretation (test code = 89713-3) Normal [facility] K0525-28-82 05:34:29* Test Item Value Reference Range Interpretation Comments TROPONIN I (test code = 5850619365) 0.006 ng/mL See_Comment [Automated message] The system [...] of biotin. Lab Interpretation (test code = 79737-0) Normal [facility] HospitalETHANOL2022-07-10 04:43:01 ALCOHOL<10mg/dL12/28/2021 11:43 PM [facility]ATORYToxic Greater than or equal to 80 mg/dL. NOTE: Whole blood values are approximately 10% to 15% lower than serum and plasma.[facility] Glycosylated Hemoglobin (A1C)2021-12-29 01:51:44* Test Item Value Reference Range Interpretation Comme nts HGB A1C (test code = 4548-4) 6.5 % 4-5.7 H JUAN ALBERTO (test code = JUAN ALBETRO) Reference RangesNormal: <5.7%Prediabetes: 5.7 - 6.4%Diabetes: > 6.5% Lab Interpretation (test code = 14908-9) Abnormal [facility] E3577-59-31 21:26:50* Test Item Value Reference Range Interpretation Comments TROPONIN I (test code = 1627094680) 0.002 ng/mL See_Comment [Automated message] The system [...] of biotin. Lab Interpretation (test code = 11742-9) Normal [facility] HospitalN-TERMINAL KSB-MGG2236-55-09 21:23:29* Test Item Value Reference Range Interpretation Comme nts NT-proBNP (test code = 2978311369) 41 pg/mL See_Comment [Automated message] The system which generated this result transmitted reference range: <=125. The reference range was not used to interpret this result as normal/abnormal. JUAN ALBERTO (test code = JUAN ALBERTO) Biotin has been reported to cause a negative bias, interpret results relative to patient's use of biotin. Lab Interpretation (test code = 88893-9) Normal [facility] HospitalAMMONIA, DVFDTL3209-93-37 21:20:38* Test Item Value Reference Range Interpretation Comme nts AMMONIA (test code = 9612643126) 9-33 L Slight hemolysis Lab Interpretation (test code = 91991-4) Abnormal [facility] HospitalCOMP. METABOLIC PANEL (47878)2021-12-28 21:08:48* Test Item Value Reference Range Interpretation Comme nts NA (test code = 7628171093) 137 mmol/L 135-145 K (test code = 5042037419) 4.5 mmol/L 3.5-5 CL (test code = 5990680262) 97 mmol/L 98-108 L CO2 TOTAL (test code = 3093413955) 29 mmol/L 23-31 AGAP (test code = 0130877402) 2-16 BUN (test code = 4258055144) 10 mg/dL 7-23 GLUCOSE (test code = 7537742363) 188 mg/dL 70-110 H CREATININE (test code = 6451139358) 0.58 mg/dL 0.6-1.25 L TOTAL BILI (test code = 5650891228) 0.8 mg/dL 0.1-1.1 CALCIUM (test code = 3277774877) 10.5 mg/dL 8.6-10.6 T PROTEIN (test code = 6873925107) 7.6 g/dL 6.3-8.2 ALBUMIN (test code = 7893693341) 4.5 g/dL 3.5-5 ALK PHOS (test code = 0470961011) 107 U/L 34-122 ALTv (test code = 1742-6) 66 U/L 5-50 H AST(SGOT) (test code = 5419994647) 96 U/L 13-40 H eGFR (test code = 3530830995) mL/min/1.73m2 JUAN ALBERTO (test code = JUAN [...] imaging tests). Lab Interpretation (test code = 85993-4) Abnormal [facility] HospitalPROTHROMBIN TIME / [id number] 21:01:25* Test Item Value Reference Range Interpretation Comme nts PROTIME PATIENT (test code = 5964-2) See_Comment [Automated [employer]] The system which generated this result transmitted reference range: 12.0 - 14.7 Seconds. The reference range was not used to interpret this result as normal/abnormal. INR (test code = 6301-6) Normal INR <1.1; Warfarin Therapeutic range 2.0 to 3.0 or 2.5 to 3.5, depending upon the indications. Lab Interpretation (test code = 01630-0) Normal [facility] HospitalCBC WITH VANX4299-09-40 20:54:03* Test Item Value Reference Range Interpretation Comme nts WBC (test code = 6690-2) See_Comment [Automated [employer]] The system which generated this result transmitted reference range: 4.20 - 10.70 10*3/?L. The reference range was not used to interpret this result as normal/abnormal. RBC (test code = 789-8) See_Comment [Automated [employer]] The system which generated this result transmitted [...] 34.2 g/dL 31.2-35 RDW-SD (test code = 21147-9) 47.8 fL 38.5-51.6 RDW-CV (test code = 788-0) 13.3 % 12.1-15.4 PLT (test code = 777-3) See_Comment [Automated messa ge] The system which generated this result transmitted reference range: 150 - 328 10*3/?L. The reference range was not used to interpret this result as normal/abnormal. MPV (test code = 27726-8) 8.6 fL 9.8-13 L NRBC/100 WBC (test code = 6399990780) See_Comment [Automated me ssage] The system which generated this result transmitted reference range: 0.0 - 10.0 /100 WBCs. The reference range was not used to interpret this result as normal/abnormal. NRBC x10^3 (test code = 7866569671) See_Comment [Automated messa ge] The system which generated this result transmitted reference range: 10*3/?L. The reference range was not used to interpret this result as normal/abnormal. GRAN MAT (NEUT) % (test code = 770-8) 64.1 % IMM GRAN % (test code = 7299543435) 0.40 % LYMPH % (test code = 736-9) 16.6 % MONO % (test code = 5905-5) 17.2 % EOS % (test code = 713-8) 0.2 % BASO % (test code = 706-2) 1.5 % GRAN MAT x10^3(ANC) (test code = 6427652820) 3.47 10*3/uL 1.99-6.95 IMM GRAN x10^3 (test code = 0663985858) 0-0.06 LYMPH x10^3 (test code = 731-0) 0.90 10*3/uL 1.09-3.23 L MONO x10^3 (test code = 742-7) 0.93 10*3/uL 0.36-1.02 EOS x10^3 (test code = 711-2) 0.06-0.53 L BASO x10^3 (test code = 704-7) 0.08 10*3/uL 0.01-0.09 Lab Interpretation (test code = 28861-6) Abnormal [facility] HospitalEthanol Xqewe8461-88-29 21:08:00* Test Item Value Reference Range Interpretation Comme nts Ethanol (test code = ETOH) < 3 mg/dL The pharmacologi yudy response to blood alcohol levels mayvary from individual to individual. The fatal concentrationhas been reported to be >400mg/dL. Complete Blood Count Auto Fbkk7455-71-90 17:33:00* Test Item Value Reference Range Interpretation [...] = NRBCP) 0 % UA, Urinalysis Rflx Cult/Jrugt7598-27-63 17:33:00* Test Item Value Reference Range Interpretation Comme nts Color,Urine (test code = UCOL) Dark Yellow Yellow A Clarity,Urine (test code = UCLAR) Clear Clear Ph, Urine (test code = UPH) 6.5 5.0-9.0 N Specific Jasper,Urine (test code = USG) 1.015 1.005-1.030 N [...] = ULEU) Trace mg/dL Negative A Urine Jgjhtmtvlca8310-74-08 17:33:00* Test Item Value Reference Range Interpretation Comme nts RBC,Urine (test code = URBCUF) None Seen /HPF 0-2 WBC,Urine (test code = UWBCUF) 0-5 /HPF 0-5 Epithelial Cell,Urine (test code = UECUF) 0-5 /HPF 0-5 Casts,Urine (test code = UCASTUF) None Seen /LPF None Seen Bacteria,Urine (test code = UBACTUF) None Seen /hpf None Seen Drug Screen,Ezrdx5898-29-79 17:33:00* Test Item Value Reference Range Interpretation [...] code = UPROP) Negative Negative Comprehensive Metabolic Byein0952-75-01 17:33:00* Test Item Value Reference Range Interpretation [...] 101 U/L 46-116 N Sars-CoV-2/FLU A/B RSV [id number] 17:31:00* Test Item Value Reference Range Interpretation [...] SARS-CoV-2 PCR Result:) Negative by RT-PCR Drug Screen,Zziys3899-05-89 17:20:00* Test Item Value Reference Range Interpretation [...] UPROP) Negative Negative Complete Blood Count Auto Oxcs7248-48-54 17:14:00* Test Item Value Reference Range Interpretation [...] code = NRBCP) 0 % Comprehensive Metabolic Yxxyg6331-27-71 17:14:00* Test Item Value Reference Range Interpretation [...] = ALP) 207 U/L 46-116 H Ethanol Yupmi2904-12-06 17:14:00* Test Item Value Reference Range Interpretation Comme nts Ethanol (test code = ETOH) 192 mg/dL Complete Blood Count Auto Aapa8896-37-23 20:20:00* Test Item Value Reference Range Interpretation [...] code = NRBCP) 0 % Comprehensive Metabolic Ladix1644-85-31 20:20:00* Test Item Value Reference Range Interpretation [...] = ALP) 189 U/L 46-116 H Ethanol Etqji6078-87-88 20:20:00* Test Item Value Reference Range Interpretation Comme nts Ethanol (test code = ETOH) 10 mg/dL Sars-CoV-2/FLU A/B RSV CUS2042-78-02 20:20:00* Test Item Value Reference Range Interpretation [...] Negative by Nucleic Acid Amplification UA, Urinalysis Flklbnrybxs3645-50-58 20:20:00* Test Item Value Reference Range Interpretation Comme nts Color,Urine (test code = UCOL) Yellow Y Clarity,Urine (test code = UCLAR) Clear Clear PH,Urine (test code = UPH.XX) 7.0 5.5-8.5 Specific Jasper,Urine (test code = USG) 1.020 1.005-1.030 N [...] code = ULEU) Negative cells/uL Negative Drug Screen,Bblfe5907-46-21 20:20:00* Test Item Value Reference Range Interpretation [...] (test code = UTHCS) Negative RESULT TO [facility] CT head/brain wo [facility] [address] [place] [address] Patient Name: Walt Velazquez Medical Record#: [id number] Address: Homeless City/State/Zip: [place] [address]: Vinnie Navarro MD Phone: Insurance: Self Pay /Age/Sex: 1970/50/M Admit/Reg Date: 09/17/[address]: Vinnie Navarro MD Location: [facility]/ PCP: PcpMd KERWIN Jimenez Date of Service: 09/17/21 Order (s): CT head/brain wo con CPT Code:62810 Report Number: [id number] Reason for Exam: Altered mental status Location [...] Notes Date/Time Note Provider Source 2023-11-05 16:26:20 8891-45-29N22:26:20F ormatting of this note might be different [...] apparent distress. No ataxia noted. [facility]om[facility] by [facility] officer. 77206-6Epcguebcr department JenuPK4528-01-81Y85:26:59[facility] department NoteTXT1.2.840.862953.1.13.104.2.7 .2.362202|[id number] for patient zmkr06596-6YdbcALDVSXHZNJVHbltqaix d C-CDA narrative [id number] R Potter RN[id number] 54TPMARCRSRVFGYTFUVQAKCL9477-13-32 T16:26:591.2.840.132386.1.72.3.15| 1.2.840.828365.1.13.104.2.7.2.7278 [id number] Renae Saldivar RN [facility] 2023-11-05 14:56:10 4622-38-32N92:56:10F ormatting of this note might be different from the original.Walt Velazquez Sr. is a 52 year old male arrive via [facility] c/o " throbbing ball in chest" since 0600 has been constant, pt immediately asks for food, 89618-2Mgldnsjdf department Triage oepxKD0881-45-86G08:00:30Emer[facility] department Triage noteTXT1.2.840.238312.1.13.104.2.7 .2.619454|[id number] for patient nxel81964-4Hoimhhwui department NoteLNNARRATIVEFormatted C-CDA narrative [id number] M. Barton RN[address] Ty[id number] 96FWKGSZQYKLWGVDJXQWYKQY7317-32-09 T15:00:301.2.840.312726.1.72.3.15| 1.2.840.972974.1.13.104.2.7.2.7278 [id number] Emani Gomez RN [facility]
--- NOTE | 2023-12-07 18:36 | ER ---
Nurse's Notes [facility] Name: Walt Velazquez Age: 52 yrs Sex: Male : 1970 Arrival Date: 12/07/2023 Time: 17:52 Bed IW2 Private MD: Diagnosis: Encounter for general adult medical examination Presentation: 12/06 18:13 Chief complaint: EMS states: found lying down under a tree by bystanders. Pt states aa5 "I'm just hungry". Coronavirus screen: At this time, the client does not indicate any symptoms associated with coronavirus-19. Ebola Screen: Patient denies travel to an Ebola-affected area in the 21 days before illness onset. Initial Sepsis Screen: Does the patient meet any 2 criteria? No. Patient's initial sepsis screen is negative. Does the patient have a suspected source of infection? No. Patient's initial sepsis screen is negative. Risk Assessment: Do you want to hurt yourself or someone else? Patient reports no desire to harm self or others. Onset of symptoms was December 07, 2023. 18:13 Acuity: LATASHA 3 aa5 18:13 Method Of Arrival: Wheelchair aa5 Historical: - Allergies: 18:14 Trazodone; too strong for him; aa5 - PMHx: 18:14 Alcoholism; Bipolar II; Hypertensive disorder; Seizure; Parkinsons; aa5 - PSHx: 18:14 toe amputation; aa5 - Immunization history:: Adult Immunizations unknown. - Infectious Disease History:: Denies. - Social history:: Smoking status: Patient denies any tobacco usage or history of. Patient uses alcohol, on a daily basis. street drugs, cocaine, marijuana. Assessment: 18:22 Reassessment: Patient is alert, oriented x 3, equal unlabored respirations, skin aa5 warm/dry/pink. Pt given food . 19:40 Reassessment: ambulates with steady gait. General: Appears in no apparent distress. ss comfortable, Behavior is calm, cooperative. Pain: Denies pain. Neuro: Level of Consciousness is awake, alert, obeys commands, Oriented to person, place, time, situation. Respiratory: Respiratory effort is even, unlabored, Respiratory pattern is regular, symmetrical. GI: No signs and/or symptoms were reported involving the gastrointestinal system. Derm: Skin is pink, warm \\T\\ dry. normal. Vital Signs: 18:13 BP 110 / 70; Pulse 75; Resp 18 S; Temp 97.8(O); Pulse Ox 99% on R/A; Weight 67.13 kg aa5 (R); Height 5 ft. 3 in. (R); 18:13 Body Mass Index 26.22 (67.13 kg, 160.02 cm) aa5 ED Course: 17:55 Patient arrived in ED. im 17:55 Chiquita Noonan PA-C is [facility]. sb4 17:55 Kaleb Groves MD is Attending Physician. sb4 18:13 Arm band placed on. aa5 18:14 Triage completed. aa5 19:40 No provider procedures requiring assistance completed. Patient did not have IV access ss during this emergency room visit. Administered Medications: No medications were administered Outcome: 18:35 Discharge ordered by . ec2 19:40 Discharged to home ambulatory, 19:40 Condition: good 19:40 Discharge instructions given to patient, Instructed on discharge instructions, follow up and referral plans. Demonstrated understanding of instructions, follow-up care, 19:40 Patient left the ED. ss Signatures: Nellie Perkins, RN RN aa5 Rosalie Kendrick RN RN Chiquita Noonan PA-C PA-C 4 Ruthy Moser Kaleb Groves MD MD ec2
--- NOTE | 2023-12-07 18:36 | EDPHYS ---
Physician Documentation [facility] Name: Walt Velazquez Age: 52 yrs Sex: Male : 1970 Arrival Date: 12/07/2023 Time: 17:52 Bed IW2 Private MD: ED Physician Kaleb Groves HPI: 12/06 18:18 This 52 yrs old Male presents to ER via Wheelchair with complaints of ec2 Dehydration. 18:18 Patient has no specific concerns, was brought in by EMS after bystanders had saw him ec2 lying under a tree. States that he was on his bedside sleeping. Patient reports that he is hungry has no acute complaints.. Historical: - Allergies: 18:14 Trazodone; too strong for him; aa5 - PMHx: 18:14 Alcoholism; Bipolar II; Hypertensive disorder; Seizure; Parkinsons; aa5 - PSHx: 18:14 toe amputation; aa5 - Immunization history:: Adult Immunizations unknown. - Infectious Disease History:: Denies. - Social history:: Smoking status: Patient denies any tobacco usage or history of. Patient uses alcohol, on a daily basis. street drugs, cocaine, marijuana. ROS: 18:18 Constitutional: as per hpi ec2 Exam: 18:18 Constitutional: GEN: NAD Head: atraumatic Eyes: EOMI Ears: External ears are ec2 normal. CV: regular rate LUNGS: no respiratory distress ABD: non-distended SKIN: no evidence of rashes MSK: no evidence of trauma NEURO: moves all extremities equally, awake and alert and oriented x 4 Vital Signs: 18:13 BP 110 / 70; Pulse 75; Resp 18 S; Temp 97.8(O); Pulse Ox 99% on R/A; Weight 67.13 kg aa5 (R); Height 5 ft. 3 in. (R); 18:13 Body Mass Index 26.22 (67.13 kg, 160.02 cm) aa5 MDM: 18:11 Patient medically screened. sb4 18:18 Data reviewed: vital signs. ED course: Patient arrives today for medical screening. ec2 Examination remarkable for well-appearing nontoxic individual is otherwise in no acute distress with a reassuring examination. Will feed the patient and discharge him. Administered Medications: No medications were administered Disposition Summary: 12/07/23 18:35 Discharge Ordered Notes: Location: Home ec2 Condition: Stable ec2 Diagnosis - Encounter for general adult medical examination ec2 Followup: ec2 - With: Private Physician - When: - Reason: Re-evaluation by your physician Forms: - Medication Reconciliation Form ec2 - Antibiotic Education ec2 - Prescription Opioid Use ec2 - Patient Portal Instructions ec2 - Leadership Thank You Letter ec2 Signatures: Nellie Perkins RN RN aa5 Chiquita Noonan PA-C PA-C sb4 Kaleb Groves MD MD ec2
[2023-12-07 20:17] VITALS: BP 110/70; TEMP 97.8; O2SAT 99
== END 2023-12-07 19:40 | disposition home or self-care (01) ==
LOC: ER 17:52
DX: Z71.1 Person with feared health complaint in whom no diagnosis is made (principal)
CPT/HCPCS: 99282

== ENCOUNTER 2024-02-06 11:44 | Emergency (ER) | payer SELFPAY ==
[2011-10-24 19:41] VITALS: BP 138/81
--- NOTE | 2024-02-06 11:58 | ER ---
Nurse's Notes [facility] Name: Walt Velazquez Age: 53 yrs Sex: Male : 1970 Arrival Date: 02/06/2024 Time: 11:44 Bed 14 Private MD: Diagnosis: Presentation: 02/05 11:38 Chief complaint: Patient states: HIT IN HEAD WITH A BASEBALL BAT YESTERDAY WHILE TRYING db TO HIT BALL. PAIN WORSE TODAY. 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 LIVES AT [facility]. Coronavirus screen: Client denies travel out of the [place] in the last 14 days. At this time, the client does not indicate any symptoms associated with coronavirus-19. Ebola Screen: Patient negative for fever greater than or equal to 101.5 degrees Fahrenheit, and additional compatible Ebola Virus Disease symptoms Patient denies exposure to infectious person. Patient denies travel to an Ebola-affected area in the 21 days before illness onset. No symptoms or risks identified at this time. Initial Sepsis Screen: Does the patient meet any 2 criteria? No. Patient's initial sepsis screen is negative. Does the patient have a suspected source of infection? No. Patient's initial sepsis screen is negative. Risk Assessment: Do you want to hurt yourself or someone else? Patient reports no desire to harm self or others. Onset of symptoms was February 05, 2024. 11:38 Method Of Arrival: EMS: [facility] db 11:38 Acuity: LATASHA 3 db Triage Assessment: 11:38 General: Appears in no apparent distress. comfortable, Behavior is calm, cooperative. db Pain: Complains of pain in head. Neuro: Level of Consciousness is awake, alert, obeys commands, Oriented to person, place, time, situation, Moves all extremities. Speech is normal. Respiratory: Airway is patent Respiratory effort is even, unlabored, Respiratory pattern is regular, symmetrical. Historical: - Allergies: 11:53 Trazodone; too strong for him; db - PMHx: 11:53 Alcoholism; Bipolar II; Hypertensive disorder; Parkinsons; Seizure; db - PSHx: 11:53 toe amputation; db - Immunization history:: Adult Immunizations. - Infectious Disease History:: Denies. - Social history:: Smoking status: Patient reports the use of cigarette tobacco products, smokes one-half pack cigarettes per day. Screenin:40 [facility] ED Fall Risk Assessment (Adult) History of falling in the last 3 months, db including since admission No falls in past 3 months (0 pts) Confusion or Disorientation No (0 pts) Intoxicated or Sedated No (0 pts) Impaired Gait No (0 pts) Mobility Assist Device Used No (0 pt) Altered Elimination No (0 pt) Score/Fall Risk Level 0 - 2 = Low Risk Oriented to surroundings, Maintained a safe environment. Abuse screen: Denies threats or abuse. Denies injuries from another. Nutritional screening: No deficits noted. Tuberculosis screening: No symptoms or risk factors identified. Assessment: 11:38 Reassessment: Patient appears in no apparent distress at this time. SEE TRIAGE FOR db INITIAL ASSESSMENT. 11:54 Reassessment: PT BECAME AGITATED THAT TV WAS NOT WORKING AND STATES IM LEAVING AND db WALKED OUT. WILL NOTIFY PROVIDER. Vital Signs: 11:38 BP 124 / 74; Pulse 96; Resp 16; Temp 99.1; Pulse Ox 95% ; Weight 63.5 kg; Height 5 ft. db 3 in. ; Pain 8/10; 11:38 Body Mass Index 24.80 (63.50 kg, 160.02 cm) db 11:38 Pain Scale: Adult db ED Course: 11:38 Arm band placed on Patient placed in an exam room. db 11:47 Patient arrived in ED. db 11:48 Rigo Cherry PA is PHCP. jr8 11:48 Deandre Mckeon MD is Attending Physician. jr8 11:53 Triage completed. db 11:55 No provider procedures requiring assistance completed. db 12:05 Shannon Iqbal, RN is Primary Nurse. db 12:05 Patient has correct armband on for positive identification. Side rails up X 1. db Administered Medications: No medications were administered Outcome: 12:05 AMA Left before signing form, db 12:05 Condition: stable 12:05 Instructed on follow up and referral plans. 12:06 Patient left the ED. db Signatures: Rigo Cherry PA PA jr8 Shannon Iqbal, RN RN db
--- NOTE | 2024-02-06 11:58 | EDPHYS ---
Physician Documentation [facility] Name: Walt Velazquez Age: 53 yrs Sex: Male : 1970 Arrival Date: 02/06/2024 Time: 11:44 Bed 14 Private MD: ED Physician Deandre Mckeon HPI: 02/05 11:58 This 53 yrs old Male presents to ER via EMS with complaints of Head Injury jr8 Without LOC-Adult. 11:58 The complaints affect the right side of the back of head. Context of injury: The jr8 problem was sustained outdoors, at a park. Onset: The symptoms/episode began/occurred acutely, yesterday. Associated signs and symptoms: Loss of consciousness: This patient did not experience any loss of consciousness. Pertinent positives: headache. Severity of symptoms: At their worst the symptoms were mild, in the emergency department the symptoms are unchanged. It is unknown whether or not the patient has had similar symptoms in the past. The patient has not recently seen a physician. Patient stated that he was playing baseball and went to get the baseball and someone accidentally hit him with a baseball bat to the right side of the head. Denies loss conscious at that time but had vomited and continues to have headache today. Called EMS for further evaluation.. Historical: - Allergies: 11:53 Trazodone; too strong for him; db - PMHx: 11:53 Alcoholism; Bipolar II; Hypertensive disorder; Parkinsons; Seizure; db - PSHx: 11:53 toe amputation; db - Immunization history:: Adult Immunizations. - Infectious Disease History:: Denies. - Social history:: Smoking status: Patient reports the use of cigarette tobacco products, smokes one-half pack cigarettes per day. ROS: 11:58 Eyes: Negative for injury, pain, redness, and discharge, ENT: Negative for injury, jr8 pain, and discharge, Neck: Negative for injury, pain, and swelling, Cardiovascular: Negative for chest pain, palpitations, and edema, Respiratory: Negative for shortness of breath, cough, wheezing, and pleuritic chest pain, Abdomen/GI: Negative for abdominal pain, nausea, vomiting, diarrhea, and constipation, Back: Negative for injury and pain, MS/Extremity: Negative for injury and deformity, Skin: Negative for injury, rash, and discoloration, 11:58 Neuro: Positive for headache, Exam: 11:58 Constitutional: This is a well developed, well nourished patient who is awake, alert, jr8 and in no acute distress. Head/Face: Normocephalic, atraumatic. Neck: Trachea midline, no thyromegaly or masses palpated, and no cervical lymphadenopathy. Supple, full range of motion without nuchal rigidity, or vertebral point tenderness. No Meningismus. Cardiovascular: Regular rate and rhythm with a normal S1 and S2. No gallops, murmurs, or rubs. Normal PMI, no JVD. No pulse deficits. Respiratory: Lungs have equal breath sounds bilaterally, clear to auscultation and percussion. No rales, rhonchi or wheezes noted. No increased work of breathing, no retractions or nasal flaring. Back: No spinal tenderness. No costovertebral tenderness. Full range of motion. Skin: Warm, dry with normal turgor. Normal color with no rashes, no lesions, and no evidence of cellulitis. MS/ Extremity: Pulses equal, no cyanosis. Neurovascular intact. Full, normal range of motion. Neuro: Awake and alert, GCS 15, oriented to person, place, time, and situation. Cranial nerves II-XII grossly intact. Motor strength 5/5 in all extremities. Sensory grossly intact. Cerebellar exam normal. Normal gait. Vital Signs: 11:38 BP 124 / 74; Pulse 96; Resp 16; Temp 99.1; Pulse Ox 95% ; Weight 63.5 kg; Height 5 ft. db 3 in. ; Pain 8/10; 11:38 Body Mass Index 24.80 (63.50 kg, 160.02 cm) db 11:38 Pain Scale: Adult db MDM: 11:48 Patient medically screened. jr8 11:58 Data reviewed: vital signs, nurses notes. ED course: Patient left without completing jr8 his head CT. Unknown why. Nurse notified me. Administered Medications: No medications were administered Disposition Summary: 02/06/24 11:57 Eloped Notes: Disposition: after being seen by provider jr8 Reason: unknown jr8 Addendum: 02/07/2024 16:45 Addendum: ECG: HR 99, AZ 178, QRS 74, QT 336, axis +35. NSR interpretation . j r8 Signatures: Dispatcher [employer] EDMS Roszak, Rigo, PA PA jr8 Shannon Iqbal, RN RN db
--- OUTSIDE RECORDS SUMMARY | 2024-02-09 11:30 | XMS REPORT | Continuity of Care Document ---
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 Role Phone Pcp-None Primary Care Physician Unavailab Rafael Thomas MD Attending Clinician [phone] Sulaiman Hawkins DO Attending Clinician [phone] HEMANT KLEIN Attending Clinician Unavailable Hemant Klein MD Attending Clinician [phone] [place] Attending Clinician Unavailab JESSICA Gallardo Attending Clinician Unavailable Rayray Driscoll MD Attending Clinician +[phone] Jessica Prado MD Attending Clinician [phone] Oswald Murphy MD Attending Clinician [phone] DIYA CHOWDHURY Attending Clinician Unavailab Diya Mackey DO Attending Clinician [phone] Fidel Cuellar Attending Clinician Unavailable DIRK YARBROUGH Attending Clinician Unavailable Leticia Rowland Attending Clinician [phone] Dirk Yarbrough MD Attending Clinician [phone] Faye Portillo LVN Attending Clinician [phone] Pia Reddy Attending Clinician [phone] Vinnie Navarro Attending Clinician Unavailable OSWALD MURPHY Admitting Clinician Unavailable Oswald Murphy MD Admitting Clinician [phone] DIYA CHOWDHURY Admitting Clinician UnavailLteicia Gaytan Admitting Clinician Unavailable JESSICA PRADO Admitting Clinician Unavailable Jessica Prado MD Admitting Clinician [phone] Payers Payer Name Policy Type Policy Number Effective Date Expirati on Date Source Problems Condition Name Condition Details Condition Category Status Onset Date Resolution Date Last Treatment Date Treating Clinician Comments Source Alcohol withdrawal syndrome with complicati on Alcohol withdrawal syndrome with complicati on Disease Active 2-19 00:00: 00 [facility] Type 2 diabetes mellitus with other specified complicati on Type 2 diabetes mellitus with other specified complicati on Disease Active - 00:00: 00 [facility] Dyslipidem ia Dyslipidem ia Disease Active 12-29 00:00: 00 [facility] Chest pain, unspecifie d type Chest pain, unspecifie d type Disease Active 7- 00:00: 00 [facility] Priapism Priapism Disease Active 2013-06- 00:00: 00 [facility] Allergies, Adverse Reactions, Alerts Allergy Name Allergy Type Status Severity Reaction(s) Onset Date Inactive Date Treating Clinician Comments Source No Known Drug Allergie s DA Active U 4-25 00:00: 00 [facility] No Known Drug Allergie s DA Active U 0 9-16 00:00: 00 [facility] No Known Drug Allergie s DA Active U 3-29 00:00: 00 [facility] No Known Drug Allergie s DA Active U 2019-06 2-16 00:00: 00 [facility] No Known Drug Allergie s DA Active U 2019-06 2-15 00:00: 00 [facility] No Known Drug Allergie s DA Active U 2019-06 00:00: 00 [facility] Trazodon e Propensi ty to adverse reaction s Active Other - See comments 10-06 00:00: 00 [facility] TRAZODON E DRUG INGREDI Active Other-Cmnt 10-06 00:00: 00 [facility] Social History Social Habit Start Date Stop Date Quantity Comments Source History of tobacco use Cigarette Smoker [facility] Alcoholic beverage intake 2023-11-07 00:00:00 2023-11-07 00:00:00 Current drinker of alcohol (finding) [facility] History of Social function 2023-11-07 00:00:00 2023-11-07 00:00:00 [facility] Sex assigned at 1970 00:00:00 1970 00:00:00 [facility] [...] 1 dose, On Thu11/11/22 at 1445, STAT [facility] multivitami n tablet 1 tablet 08-12 15:00: 00 Yes 1{tbl} 1 tablet, Oral, DAILY, First dose on Thu08/12/22 at 0900, Until Discontinu ed, Routine [facility] foLIC acid (FOLATE) tablet 1 mg 08-12 15:00: 00 Yes 1mg 1 mg, Oral, DAILY, First dose on Thu08/12/22 at 0900, Until Discontinu ed, Routine [facility] foLIC acid 1 mg tablet 08-12 00:00: 00 09-12 04:59 :00 No [id number] 1mg Take 1 tablet by mouth in the morning for 30 days. [facility] oxazepam (SERAX) capsule 15 mg 08-11 20:00: [...] Thu08/13/22 at 0600, Routine [Order 2 End] [facility] thiamine (VITAMIN B1) tablet 100 mg 08-11 16:15: 00 Yes 100mg 100 mg, Oral, DAILY, First dose on Thu08/11/22 at 1015, Until Discontinu ed, Routine [facility] enoxaparin (LOVENOX) injection 40 mg 08-10 23:00: 00 Yes 40mg 40 mg, Subcutaneo us, DAILY, First dose on Thu08/10/22 at 1700, Until Discontinu ed, Routine [facility] NaCl 0.9% (NS) IV infusion 1,000 mL 08-10 15:00: 00 Yes 1000mL at 125 mL/hr, IV Infusion, CONTINUOUS , Starting on Thu08/10/22 at 0900, Until Discontinu ed, Routine [facility] foLIC acid (FOLATE) 5 mg in NaCl 0.9% (NS) piggyback 08-10 15:00: 00 08-11 16:14 :47 No 5mg IV Piggyback, DAILY, First dose on Thu08/10/22 at 0900, Until Discontinu ed, 50 mL [facility] thiamine (VITAMIN B1) 100 mg in NaCl 0.9% (NS) piggyback 08-10 15:00: 00 08-10 16:08 :00 No 100mg IV Piggyback, DAILY, 1 dose, First dose on Thu08/10/22 at 0900, 50 mL [facility] LORazepam (ATIVAN) injection 2 mg 08-10 14:52: 57 Yes 2mg 2 mg, Slow IV Push, Q4HPRN, Starting on Thu08/10/22 at 0852, Until Discontinu ed, Routine, Seizures, Agitation, Anxiety [facility] Sliding Scale Insulin-Reg ular + Fsbg Testing 08-10 13:30: 00 Yes Subcutaneo us, AC+HS, First dose on Thu08/10/22 at 0730, Until Discontinu ed, Routine [facility] oxazepam (SERAX) capsule 15 mg 08-10 12:08: 05 Yes 15mg 15 mg, Oral, Q4HPRN, Starting on Thu08/10/22 at 0608, Until Discontinu ed, Routine, Only while awake for DBP equal to or greater than 100, HR equal to or greater than 100. [facility] dextrose 10% (D10W) bolus infusion 250 [...] blood glucose is < 80 mg/dL, repeat.
[facility] glucagon (GLUCAGEN DIAGNOSTIC KIT) injection 1 mg 08-10 12:03: 20 Yes 1mg 1 mg, Intramuscu lar, PRN, Starting on Thu08/10/22 at 0603, Until Discontinu ed, JACIEL, Blood Glucose < or = 70 mg/dL and patient is NPO, unable to swallow or has mental changes. [facility] ondansetron (ZOFRAN (PF)) injection 4 mg 08-10 12:02: 53 Yes 4mg 4 mg, Slow IV Push, Q6HPRN, Starting on Thu08/10/22 at 0602, Until Discontinu ed, Routine, Nausea and Vomiting (N/V) [facility] ibuprofen (MOTRIN IB) tablet 200 mg 08-10 12:02: 45 Yes 200mg 200 mg, Oral, Q6HPRN, Starting on Thu08/10/22 at 0602, Until Discontinu ed, Routine, Pain (scale 1-3) [facility] NaCl 0.9% (NS) bolus infusion 1,000 mL 08-10 10:15: 00 08-10 13:00 :00 No 1000mL at 999 mL/hr, 1,000 mL, IV Infusion, ONCE, 1 dose, On Thu08/10/22 at 0415, STAT [facility] LORazepam (ATIVAN) injection 0.5 mg 08-10 09:15: 00 08-10 09:19 :00 No .5mg 0.5 mg, Slow IV Push, ONCE, 1 dose, On Thu08/10/22 at 0315, STAT [facility] LORazepam (ATIVAN) injection 1 mg 08-10 08:00: 00 08-10 07:05 :00 No 1mg 1 mg, Slow IV Push, ONCE NOW, 1 dose, On 08/10/22 at 0200, STAT [facility] thiamine (VITAMIN B1) injection 100 mg 08-10 06:45: 00 08-10 06:52 :00 No 100mg 100 mg, Intravenou s, ONCE, 1 dose, [facility] 08/10/22 [facility] 0045[facility] 1 mg 08-10 05:15: 00 08-10 05:22 :00 No 1mg 1 mg, Slow IV Push, ONCE, 1 dose, On 08/09/22 at 2315, STAT [facility] ketorolac (TORADOL) injection 15 mg 2021-06 0-16 16:00: 00 04-06 14:50 :00 No 15mg 15 mg, Slow IV Push, ONCE, 1 dose, On 04/06/22 at 1100, [facility] ondansetron (ZOFRAN (PF)) injection 4 mg 2021-06 0-16 15:45: 00 04-06 14:50 :00 No 4mg 4 mg, Slow IV Push, ONCE, 1 dose, On 04/06/22 at 1045, [facility] oxazepam (SERAX) capsule 15 mg 12-31 06:28: 17 01-01 06:29 :00 No 15mg 15 mg, Oral, Q12H TAPER, 2 doses, First dose on Thu12/31/21 at 0130, Last dose on Thu12/31/21 at 1330, Routine [facility] multivitami n tablet 12-31 00:00: 00 Yes [id number] 1{tbl} Take 1 tablet by mouth in the morning. [facility] thiamine 100 mg tablet 12-31 00:00: 00 Yes [id number] 100mg Take 1 tablet by mouth in the morning. [facility] aspirin 81 mg chewable tablet 12-31 00:00: 00 Yes [id number] 81mg Take 1 tablet by mouth in the morning. [facility] foLIC acid 1 mg tablet 12-31 00:00: 00 01-31 04:59 :00 No [id number] 1mg Take 1 tablet by mouth in the morning for 30 days. [facility] metFORMIN 500 mg tablet 12-30 00:00: 00 Yes [id number] 500mg Take 1 tablet by mouth in the morning and 1 tablet in the evening. Take with meals. [facility] aspirin chewable tablet 81 mg 12-29 14:00: 00 Yes 81mg 81 mg, Oral, DAILY, First dose on Thu12/29/21 at 0900, Until Discontinu ed, Routine [facility] sulfur hexafluorid e microsphr (LUMASON) injection 5 mL 12-29 13:45: 00 12-29 13:45 :00 No [id number] 5mL 5 mL, Intravenou s, ONCE, 1 dose, On 12/29/21 at 0845, Routine
meat team member approving Restricted medication : STEFANIE GORMAN [facility] enoxaparin (LOVENOX) injection 40 mg 12-29 13:00: 00 Yes 40mg 40 mg, Subcutaneo us, Q24H, First dose on Thu12/29/21 at 0800, Until Discontinu ed, Routine [facility] Sliding Scale Insulin - Lispro (HumaLOG) + Fsbg Testing 12-29 13:00: 00 Yes Subcutaneo us, TID MEALS+HS, First dose on Thu12/29/21 at 0800, Until Discontinu ed, Routine [facility] diazePAM (VALIUM) injection 10 mg 12-29 05:30: 00 12-29 04:40 :00 No 10mg 10 mg, Intravenou s, ONCE, 1 dose, On Thu12/29/21 at 0030, Routine [facility] diazePAM (VALIUM) injection 10 mg 12-29 04:15: 00 12-29 03:17 :00 No 10mg 10 mg, Intravenou s, ONCE, 1 dose, On 12/28/21 at 2315, Routine [facility] diazePAM (VALIUM) injection 5 mg 12-29 03:45: 01 Yes 5mg 5 mg, Intravenou s, QIDPRN, Starting on 12/28/21 at 2245, Until Discontinu ed, Routine, Seizures, Agitation [facility] foLIC acid (FOLATE) tablet 1 mg 12-29 03:45: 00 Yes 1mg 1 mg, Oral, DAILY, First dose on 12/28/21 at 2245, Until Discontinu ed, Routine [facility] thiamine (VITAMIN B1) tablet 100 mg 12-29 03:45: 00 Yes 100mg 100 mg, Oral, DAILY, First dose (after last modificati on) on 12/28/21 at 2245, Until Discontinu ed, Routine [facility] glucagon (GLUCAGEN DIAGNOSTIC KIT) injection 1 mg 12-29 03:42: 19 Yes 1mg 1 mg, Intramuscu lar, PRN, Starting on 12/28/21 at 2242, Until Discontinu ed, JACIEL, Blood Glucose < or = 70 mg/dL and patient is unable to swallow or has mental changes. [facility] dextrose 10% (D10W) bolus infusion 250 mL [...] blood glucose is < 80 mg/dL, repeat.
[facility] LORazepam (ATIVAN) injection 1 mg 12-29 03:30: 00 12-29 02:32 :00 No 1mg 1 mg, Intravenou s, ONCE, 1 dose, On 12/28/21 at 2230, Routine
Is the medication being used for status epilepticu s? No [facility] oxazepam (SERAX) capsule 15 mg 12-29 00:28: 20 Yes 15mg 15 mg, Oral, Q4HPRN, Starting on 12/28/21 at 1928, Until Discontinu ed, Routine, Only while awake for DBP equal to or greater than 100, HR equal to or greater than 100. [facility] ondansetron (ZOFRAN (PF)) injection 4 mg 12-29 00:23: 47 Yes 4mg 4 mg, Slow IV Push, Q6HPRN, Starting on 12/28/21 at 1923, Until Discontinu ed, Routine, Nausea and Vomiting (N/V) [facility] acetaminoph en (TYLENOL) tablet 650 mg 12-29 00:23: 37 Yes 650mg 650 mg, Oral, Q6HPRN, Starting on 12/28/21 at 1923, Until Discontinu ed, Routine, Pain (scale 1-3), Temp > 38.5 C [facility] chlordiazeP OXIDE (LIBRIUM) capsule 25 mg 12-28 23:15: 00 12-28 23:24 :00 No 25mg 25 mg, Oral, ONCE, 1 dose, On 12/28/21 at 1815, [facility] NaCl 0.9% (NS) bolus infusion 2,000 mL 12-28 22:45: 00 12-28 23:18 :00 No 2000mL at 999 mL/hr, 2,000 mL, IV Infusion, ONCE, 1 dose, On 12/28/21 at 1745, JACIEL [facility] LORazepam (ATIVAN) injection 1 mg 12-28 20:45: 00 12-28 20:49 :00 No 1mg 1 mg, Slow IV Push, ONCE, 1 dose, On 12/28/21 at 1545, STAT
Is the medication being used for status epilepticu s? No [facility] acetaminoph en (TYLENOL) 500 mg tablet 10-06 00:00: 00 Yes 500mg Take 1 Tab by mouth every 6 (six) hours as needed for Pain. [facility] Vital Signs Vital Name Observation Time Observation Value Comments S ource Systolic blood pressure 2023-12-13 05:16:00 125 mm[Hg] [facility] Diastolic blood pressure 2023-12-13 05:16:00 90 mm[Hg] [facility] Heart rate 2023-12-13 05:16:00 77 /min [facility] Body temperature 2023-12-13 05:16:00 36.06 Theresa [facility] Respiratory rate 2023-12-13 05:16:00 16 /min [facility] Oxygen saturation in Arterial blood by Pulse oximetry 2023-12-13 05:16:00 98 /min [facility] Body height 2023-12-13 01:35:00 157.5 cm [facility] Body weight 2023-12-13 01:35:00 65.772 kg [facility] BMI 2023-12-13 01:35:00 26.52 kg/m2 [facility] Systolic blood pressure 2023-11-05 21:00:00 106 mm[Hg] [facility] Diastolic blood pressure 2023-11-05 21:00:00 70 mm[Hg] [facility] Heart rate 2023-11-05 21:00:00 74 /min [facility] Body temperature 2023-11-05 21:00:00 36.5 Theresa [facility] Respiratory rate 2023-11-05 21:00:00 21 /min [facility] Oxygen saturation in Arterial blood by Pulse oximetry 2023-11-05 21:00:00 98 /min [facility] Body height 2023-11-05 19:59:00 160 cm [facility] Body weight 2023-11-05 19:59:00 63.504 kg [facility] BMI 2023-11-05 19:59:00 24.80 kg/m2 [facility] Systolic blood pressure 2022-11-11 20:31:31 116 mm[Hg] [facility] Diastolic blood pressure 2022-11-11 20:31:31 77 mm[Hg] [facility] Heart rate 2022-11-11 20:31:31 84 /min Un[facility] Respiratory rate 2022-11-11 20:31:31 12 /min [facility] Oxygen saturation in Arterial blood by Pulse oximetry 2022-11-11 20:31:31 90 /min [facility] Body temperature 2022-11-11 18:49:00 37.11 Theresa [facility] Body height 2022-11-11 18:49:00 160 cm [facility] Body weight 2022-11-11 18:49:00 68.04 kg [facility] BMI 2022-11-11 18:49:00 26.57 kg/m2 [facility] Body temperature 2022-08-11 14:00:00 36.5 Theresa [facility] Systolic blood pressure 2022-08-11 10:00:00 116 mm[Hg] [facility] Diastolic blood pressure 2022-08-11 10:00:00 71 mm[Hg] [facility] Heart rate 2022-08-11 10:00:00 70 /min [facility] Respiratory rate 2022-08-11 10:00:00 16 /min [facility] Body weight 2022-08-11 10:00:00 65.499 kg [facility] BMI 2022-08-11 10:00:00 25.58 kg/m2 [facility] Oxygen saturation in Arterial blood by Pulse oximetry 2022-08-11 10:00:00 100 /min [facility] Body height 2022-08-10 22:12:00 160 cm [facility] Systolic blood pressure 2022-04-06 16:00:00 125 mm[Hg] [facility] Diastolic blood pressure 2022-04-06 16:00:00 75 mm[Hg] [facility] Heart rate 2022-04-06 16:00:00 87 /min Un[facility] Respiratory rate 2022-04-06 16:00:00 22 /min [facility] Oxygen saturation in Arterial blood by Pulse oximetry 2022-04-06 16:00:00 98 /min [facility] Body temperature 2022-04-06 14:41:00 37 Theresa [facility] Body height 2022-04-06 14:41:00 160 cm [facility] Body weight 2022-04-06 14:41:00 63.504 kg [facility] BMI 2022-04-06 14:41:00 24.80 kg/m2 [facility] Systolic blood pressure 2022-01-20 02:27:00 121 mm[Hg] [facility] Diastolic blood pressure 2022-01-20 02:27:00 75 mm[Hg] [facility] Heart rate 2022-01-20 02:27:00 79 /min Unive [facility] Respiratory rate 2022-01-20 02:27:00 12 /min [facility] Oxygen saturation in Arterial blood by Pulse oximetry 2022-01-20 02:27:00 98 /min [facility] Body temperature 2022-01-19 22:19:00 36.44 Theresa [facility] Body weight 2022-01-19 22:19:00 60.328 kg [facility] BMI 2022-01-19 22:19:00 23.56 kg/m2 [facility] Systolic blood pressure 2021-12-30 20:52:00 134 mm[Hg] [facility] Diastolic blood pressure 2021-12-30 20:52:00 76 mm[Hg] [facility] Heart rate 2021-12-30 20:52:00 67 /min [facility] Body temperature 2021-12-30 20:26:00 36.67 Theresa [facility] Oxygen saturation in Arterial blood by Pulse oximetry 2021-12-30 20:26:00 99 /min [place] [facility] Respiratory rate 2021-12-30 16:21:00 18 /min [facility] Body weight 2021-12-30 08:27:00 60.464 kg [facility] BMI 2021-12-30 08:27:00 23.61 kg/m2 [facility] Body height 2021-12-29 01:29:00 160 cm [facility] Procedures Procedure Date / Time Performed Performing Clinician Source TROPONIN I 2023-12-13 03:32:00 Rafael Byrd [facility] XR CHEST 1 VW 2023-12-13 02:18:14 Rafael Byrd [facility] LIPASE 2023-12-13 02:07:00 Rafael Byrd [facility] TROPONIN I 2023-12-13 02:07:00 Rafael Byrd [facility] COMP. METABOLIC PANEL ([id number]) 2023-12-13 02:07:00 Rafael Byrd [facility] CBC WITH DIFF 2023-12-13 02:07:00 Rafael Byrd [facility] XR CHEST 1 VW 2023-11-05 20:09:00 Sulaiman Hawkins [facility] LIPASE 2023-11-05 20:01:00 Sulaiman Hawkins [facility] MAGNESIUM 2023-11-05 20:01:00 Sulaiman Hawkins [facility] TROPONIN I 2023-11-05 20:01:00 [facility] COMP. METABOLIC PANEL ([id number]) 2023-11-05 20:01:00 Sulaiman Hawkins [facility] CBC WITH DIFF 2023-11-05 20:01:00 Sulaiman Hawkins [facility] N-TERMINAL PRO-BNP 2023-11-05 20:01:00 Sulaiman Hawkins [facility] MAGNESIUM 2022-11-11 19:05:00 Jessica [facility] BASIC METABOLIC PANEL (NA, K, CL, CO2, GLUCOSE, BUN, CREATININE, CA) 2022-11-11 19:05[facility] 2022-11-11 19:05:00 Jessica [facility] CBC WITH DIFF 2022-11-11 19:05:00 Hemant Klein [facility] POCT GLUCOSE (AUTOMATED) 2022-08-11 13:36:00 Arvind Prado [facility] PHOSPHORUS 2022-08-11 10:35:00 Eve [facility] MAGNESIUM 2022-08-11 10:35:00 Eve [facility] AMMONIA, PLASMA 2022-08-11 10:35:00 Jessica Prado [facility] COMP. METABOLIC PANEL ([id number]) 2022-08-11 10:35:00 Eve [facility] CBC WITH DIFF 2022-08-11 10:35:00 Oswald [facility] POCT GLUCOSE (AUTOMATED) 2022-08-11 02:15:00 Arvind Prado [facility] POCT GLUCOSE (AUTOMATED) 2022-08-10 23:10:00 Arvind Prado [facility] POCT GLUCOSE (AUTOMATED) 2022-08-10 18:20:00 Arvind Prado [facility] POCT GLUCOSE (AUTOMATED) 2022-08-10 14:11:00 Arvind Prado [facility] POCT GLUCOSE (AUTOMATED) 2022-08-10 10:59:00 Gopal Driscoll [...] [facility] URINALYSIS 2022-08-10 05:46:00 [facility] URINE DRUG (IMMUNOASSAY) - COMPREHENSIVE DRUG SCREEN W/O REFLEX 2022-08-10 05:45:00 Rayray Driscoll [facility] CREATINE KINASE 2022-08-10 05:16:00 [facility] 2022-[facility]-10 05:16:00 [facility] MAGNESIUM 2022-08-10 05:16:00 Rayray Driscoll [facility] TROPONIN I 2022-08-10 05:16:00 Rayray Driscoll [facility] COMP. METABOLIC PANEL ([id number]) 2022-08-10 05:16:00 Rayray Driscoll [facility] ETHANOL 2022-08-10 05:16:00 Rayray Driscoll [facility] CBC WITH DIFF 2022-08-10 05:16:00 Rayray Driscoll [facility] N-TERMINAL PRO-BNP 2022-08-10 05:16:00 Rayray Driscoll [facility] CRITICAL CARE 2022-08-10 04:52:00 Rayray Driscoll [facility] XR CHEST 1 VW 2022-04-06 14:51:50 Diya Chowdhury [facility] LIPASE 2022-04-06 14:42:00 Diya Chowdhury [facility] TROPONIN I 2022-04-06 14:42:00 Diya Chowdhury [facility] COMP. METABOLIC PANEL ([id number]) 2022-04-06 14:42:00 Diya Chowdhury [facility] CBC WITH DIFF 2022-04-06 14:42:00 Diya Chowdhury [facility] PROTHROMBIN TIME / INR 2022-04-06 14:42:00 Diya Chowdhury [facility] ACTIVATED PARTIAL THRMPLAS NELDA 2022-04-06 14:42:00 Luciana [facility] LACTIC ACID WHOLE BLOOD 2022-01-20 00:22:00 Leticia Baldwin [facility] URINE DRUG (IMMUNOASSAY) - COMPREHENSIVE DRUG SCREEN 2022-01-19 23:10:00 Leticia Baldwin [facility] URINALYSIS 2022-01-19 23:10:00 Leticia Baldwin [facility] TROPONIN I 2022-01-19 23:00:00 [facility] COMP. METABOLIC PANEL ([id number]) 2022-01-19 23:00:00 Leticia Baldwin [facility] LITHIUM 2022-01-19 23:00:00 Let[facility] ETHANOL 2022-01-19 23:00:00 Leticia [facility] CBC WITH DIFF 2022-01-19 23:00:00 Leticia Baldwin [facility] COVID-19 (ID NOW RAPID TESTING) 2022-01-19 23:00:00 Leticia Baldwin [facility] CT HEAD WO CONTRAST 2022-01-19 22:49:00 Leticia Baldwin [facility] XR CHEST 1 VW 2022-01-19 22:41:00 Leticia Baldwin [facility] POCT GLUCOSE (AUTOMATED) 2022-01-19 22:25:00 Leticia Baldwin [facility] POCT GLUCOSE (AUTOMATED) 2021-12-30 21:55:00 Arvind Prado [facility] POCT GLUCOSE (AUTOMATED) 2021-12-30 16:21:00 Arvind Prado [facility] POCT GLUCOSE (AUTOMATED) 2021-12-30 12:30:00 Arvind Prado [facility] HEPATIC FUNCTION PANEL ([id number]) (ALB,T.PRO,BILI T,BU/BC,ALT,AST,ALK PHOS) 2021-12-30 09:28:00 Maira Gaitan [...] [facility] TROPONIN I 2021-12-29 09:42:00 Eve [facility] TROPONIN I 2021-12-29 04:55:00 Eve [facility] CT HEAD WO CONTRAST 2021-12-28 21:18:22 Poppy Renteria [facility] AMMONIA, PLASMA 2021-12-28 21:00:00 Pia Renteria U [facility] COVID-19 (ID NOW RAPID TESTING) 2021-12-28 20:42:00 Pia Renteria [facility] LAB ONLY COVID INTERPRETATION 2021-12-28 20:42:00 Pia Renteria [facility] URINE DRUG (IMMUNOASSAY) - COMPREHENSIVE DRUG SCREEN W/O REFLEX 2021-12-28 20:42:00 Pia Renteria [facility] URINALYSIS 2021-12-28 20:40:00 Pia Renteria [facility] N-TERMINAL PRO-BNP 2021-12-28 20:40:00 Corina Renteria [facility] TROPONIN I 2021-12-28 20:40:00 Pia Renteria [facility] THYROID STIMULATING HORMONE 2021-12-28 20:40:00 Jessica Prado [facility] COMP. METABOLIC PANEL (73133) 2021-12-28 20:40:00 Pia Renteria [facility] LIPID PANEL (38453)(TOTAL CHOLESTEROL, TRIGLYCERIDES, HDL) 2021-12-28 20:40:00 Demetrius Langford [facility] ETHANOL 2021-12-28 20:40:00 Demetrius Langford [facility] CBC WITH DIFF 2021-12-28 20:40:00 Pia Renteria [facility] GLYCOSYLATED HEMOGLOBIN (A1C) 2021-12-28 20:40:00 Jessica Prado [facility] PROTHROMBIN TIME / INR 2021-12-28 20:40:00 Lesly Renteria [facility] XR CHEST 1 VW 2021-12-28 20:16:00 Pia Renteria [facility] HB ECG ROUTINE & RHYTHM STRIP 2021-12-28 20:04:59 Pia Renteria [facility] Encounters Start Date/Time End Date/Time Encounter Type Admission Type Attending [facility] Care Department Encounter ID Source 2021-09-17 16:45:00 Inpatient [facility] [id number] [facility] 2020-06-06 16:07:00 Inpatient [facility] [id number] [facility] 2020-06-06 06:20:00 Inpatient [facility] [id number] [facility] 2020-06-05 19:35:00 Inpatient [facility] [id number] [facility] 2020-05-23 19:53:00 Inpatient [facility] [id number] [facility] 2020-05-23 19:53:00 Inpatient [facility] [id number] [facility] 2023-12-12 20:44:00 2023-12-13 00:22:00 Emergency Rafael Byrd [facility] 1.2.840.114 350.1.13.10 4.2.7.2.686 [id number] [facility] 2023-11-05 14:54:00 2023-11-05 16:27:00 Emergency Sulaiman Hawkins [facility] 1.2.840.114 350.1.13.10 4.2.7.2.686 [id number] [facility] 2022-11-11 13:50:00 2022-11-11 16:07:00 Emergency X HEMANT KLEIN [facility] ERT [id number] [facility] 2022-11-11 13:50:00 2022-11-11 16:07:00 Emergency Hemant Klein [facility] 1.2.840.114 350.1.13.10 4.2.7.2.686 [id number] [facility] 2022-10-14 20:59:00 2022-10-14 20:59:00 Emergency [facility] [id number] [facility] 2022-10-14 20:59:00 2022-10-14 20:59:00 Emergency Emergency [place] [facility] [id number] [facility] 2022-08-09 22:59:00 2022-08-11 13:02:00 Outpatient X JESSICA PRADO [facility] [place] [id number] [facility] 2022-08-09 22:59:00 2022-08-11 13:02:00 Emergency Mukund DriscollJessica Avilez [facility] 1.2.840.114 350.1.13.10 4.2.7.2.686 [id number] [facility] 2022-04-06 09:38:00 2022-04-06 11:42:00 Emergency X DIYA CHOWDHURY [facility] ERT [id number] [facility] 2022-04-06 09:38:00 2022-04-06 11:42:00 Emergency Toddjose l Diya [facility] 1.2.840.114 350.1.13.10 4.2.7.2.686 [id number] [facility] 2022-03-07 12:38:00 2022-03-07 12:38:00 Emergency [facility] [id number] [facility] 2022-03-07 12:38:00 2022-03-07 12:38:00 Emergency Emergency Fidel Cuellar [facility] [id number] [facility] 2022-01-19 17:18:00 2022-01-19 22:00:00 Emergency X DIRK YARBROUGH [facility] ERT [id number] [facility] 2022-01-19 17:18:00 2022-01-19 22:00:00 Emergency Nicolasa Leticia Dirk Sutton [facility] 1.2.840.114 350.1.13.10 4.2.7.2.686 [id number] [facility] 2021-12-31 00:00:00 2021-12-31 00:00:00 Transition of Care Bandar Faye MIKMarlon MASSIEL NAVARRO 1.2.840.114 350.1.13.10 4.2.7.2.686 [id number] [facility] 2021-12-28 14:53:00 2021-12-30 17:42:00 Inpatient X JESSICA PRADO [facility] [id number] [facility] 2021-12-28 14:53:00 2021-12-30 17:42:00 Hospital Encounter Pia Renteria Jelani [facility] 1.2.840.114 350.1.13.10 4.2.7.2.686 [id number] [facility] 2021-09-17 16:47:00 2021-09-17 16:47:00 Emergency [facility] [id number] [facility] 2020-06-06 16:07:00 2020-06-06 16:07:00 Emergency [facility] [id number] [facility] Results Test Description Test Time Test Comments Results Result Co mments Source [facility] [id number] 02:57:27* Test Item Value Reference Range Interpretation Comme nts TROPONIN I (test code = 9051954563) 0.003 ng/mL <=0.034 JUAN ALBERTO (test code = [...] of biotin. Lab Interpretation (test code = 55598-4) Normal [facility]. METABOLIC PANEL (95011)2023-12-13 02:46:25* Test Item Value Reference Range Interpretation Comme nts NA (test code = 1166116395) 144 mmol/L 135-145 K (test code = 4611709745) 3.9 mmol/L 3.5-5.0 CL (test code = 2777328430) 110 mmol/L 98-108 H CO2 TOTAL (test code = 0632752358) 20 mmol/L 23-31 L AGAP (test code = 8059682088) 14 2-16 BUN (test code = 7253290556) 13 mg/dL 7-23 GLUCOSE (test code = 1768401146) 163 mg/dL 70-110 H CREATININE (test code = 2160-0) 0.63 mg/dL 0.60-1.25 TOTAL BILI (test code = 2055745688) 0.3 mg/dL 0.1-1.1 CALCIUM (test code = 9645788283) 9.0 mg/dL 8.6-10.6 T PROTEIN (test code = 8010127369) 7.2 g/dL 6.3-8.2 ALBUMIN (test code = 1028377506) 4.1 g/dL 3.5-5.0 ALK PHOS (test code = 7155452693) 129 U/L 34-122 H ALTv (test code = 1742-6) 15 U/L 5-50 AST(SGOT) (test code = 6069788630) 34 U/L 13-40 eGFR (test code = 72026-9) 113.7 mL/min/1.73m2 CKD-EPI eGFR (2020). Assuming creatinine has been stable day-to-day for at least three months, the eGFR indicates Category G1 (>= 90 mL/min/1.73 m2) Lab Interpretation (test code = 73611-5) Abnormal [facility], [id number] 02:45:25* Test Item Value Reference Range Interpretation Comme nts LIPASE (test code = 9829529903) 47 U/L 0-220 Lab Interpretation (test cod e = 59656-2) Normal [facility] CHE[facility] 1 [id number] 02:40:35History: chest pain . Exam: XR CHEST 1 VW Date: 12/12/2023 9:15 PM Ordering provider: RAFAEL BYRD Technical quality: Adequate Comparison: 11/05/2023. Findings: Frontal view of the chest is obtained. The cardiac silhouette is normal in size. No evidence of infiltrate,pleural effusion, CHF, or pneumothorax.[facility] [id number] 02:33:48* Test Item Value Reference Range Interpretation Comme nts WBC (test code = 6690-2) 7.31 4.20-10.70 RBC (test code = 789-8) 4.24 4.26-5.52 L HGB (test code = 718-7) 13.1 g/dL 12.2-16.4 HCT (test code = 4544-3) 39.4 % 38.4-49.3 MCV (test code = 787-2) 92.9 fL 81.7-95.6 MCH (test code = 785-6) 30.9 pg 26.1-32.7 MCHC (test code = 786-4) 33.2 g/dL 31.2-35.0 RDW-SD (test code = 47243-8) 54.4 fL 38.5-51.6 H RDW-CV (test code = 788-0) 15.9 % 12.1-15.4 H PLT (test code = 777-3) 318 150-328 MPV (test code = 94693-7) 8.5 fL 9.8-13.0 L NRBC/100 WBC (test code = 9130730853) 0.0 0.0-10.0 NRBC x10^3 (test code = 2647537789) See_Comment [Automated messa ge] The system which generated this result transmitted reference range: 10*3/?L. The reference range was not used to interpret this result as normal/abnormal. GRAN MAT (NEUT) % (test code = 770-8) 50.1 % IMM GRAN % (test code = 1196023189) 0.40 % LYMPH % (test code = 736-9) 37.6 % MONO % (test code = 5905-5) 6.8 % EOS % (test code = 713-8) 4.1 % BASO % (test code = 706-2) 1.0 % GRAN MAT x10^3(ANC) (test code = 5975538672) 3.66 10*3/uL 1.99-6.95 IMM GRAN x10^3 (test code = 9858581678) 0.03 10*3/uL 0.00-0.06 LYMPH x10^3 (test code = 731-0) 2.75 10*3/uL 1.09-3.23 MONO x10^3 (test code = 742-7) 0.50 10*3/uL 0.36-1.02 EOS x10^3 (test code = 711-2) 0.30 10*3/uL 0.06-0.53 BASO x10^3 (test code = 704-7) 0.07 10*3/uL 0.01-0.09 Lab Interpretation (test code = 40648-3) Abnormal [facility] 1 [id number] 20:15:30HISTORY: Chest pain. TECHNIQUE: Portable AP view of the chest is obtained. Comparison is beingmade with 04/06/2022 study. FINDINGS: No acute pneumonia. No pneumothorax or pleural effusion orpulmonarycongestion detected. Cardiac size is within normal limits.Prominent osteophytes are seen along right left vertebral margins at middleand lower thoracic spines. 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 SALES 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 [facility] (NA, K, CL, CO2, GLUCOSE, BUN, CREATININE, CA)2022-11-11 19:41:47* Test Item Value Reference Range Interpretation Comme nts NA (test code = 2717987479) 138 mmol/L 135-145 K (test code = 4875205179) 4.8 mmol/L 3.5-5.0 CL (test code = 0393960150) 103 mmol/L 98-108 CO2 TOTAL (test code = 2590021956) 26 mmol/L 23-31 AGAP (test code = 5498584082) 9 2-16 BUN (test code = 4192442236) 17 mg/dL 7-23 GLUCOSE (test code = 9848669689) 219 mg/dL 70-110 H CREATININE (test code = 1560680267) 0.72 mg/dL 0.60-1.25 CALCIUM (test code = 2846079548) 10.0 mg/dL 8.6-10.6 eGFR (test code = 8379099142) 114.6 mL/min/1.73m2 JUAN ALBERTO (test code = [...] imaging tests). Lab Interpretation (test code = 74369-9) Abnormal [facility]2023-05-23 19:41:47* Test Item Value Reference Range Interpretation Comme nts MAGNESIUM (test code = 2766967327) 1.8 mg/dL 1.7-2.4 Lab Interpretation (test cod e = 87286-6) Normal [facility] WITH [id number] 19:25:26* Test Item Value Reference Range Interpretation Comme nts WBC (test code = 6690-2) 6.82 See_Comment [Automated [employer] The system which generated this result transmitted reference range: 4.20 - 10.70 10*3/?L. The reference range was not used to interpret this result as normal/abnormal. RBC (test code = 789-8) 4.98 See_Comment [Automated [employer] The system which generated this result transmitted [...] 33.9 g/dL 31.2-35.0 RDW-SD (test code = 43172-0) 46.0 fL 38.5-51.6 RDW-CV (test code = 788-0) 13.5 % 12.1-15.4 PLT (test code = 777-3) 237 See_Comment [Automated [employer] The system which generated this result transmitted reference range: 150 - 328 10*3/?L. The reference range was not used to interpret this result as normal/abnormal. MPV (test code = 47038-3) 8.9 fL 9.8-13.0 L NRBC/100 WBC (test code = 6177356289) 0.0 See_Comment [Automated me ssage] The system which generated this result transmitted reference range: 0.0 - 10.0 /100 WBCs. The reference range was not used to interpret this result as normal/abnormal. NRBC x10^3 (test code = 6285337260) See_Comment [Automated messa ge] The system which generated this result transmitted reference range: 10*3/?L. The reference range was not used to interpret this result as normal/abnormal. GRAN MAT (NEUT) % (test code = 770-8) 71.2 % IMM GRAN % (test code = 8353018593) 0.30 % LYMPH % (test code = 736-9) 18.2 % MONO % (test code = 5905-5) 8.4 % EOS % (test code = 713-8) 1.0 % BASO % (test code = 706-2) 0.9 % GRAN MAT x10^3(ANC) (test code = 7186032395) 4.86 10*3/uL 1.99-6.95 IMM GRAN x10^3 (test code = 0732644191) 0.00-0.06 LYMPH x10^3 (test code = 731-0) 1.24 10*3/uL 1.09-3.23 MONO x10^3 (test code = 742-7) 0.57 10*3/uL 0.36-1.02 EOS x10^3 (test code = 711-2) 0.07 10*3/uL 0.06-0.53 BASO x10^3 (test code = 704-7) 0.06 10*3/uL 0.01-0.09 Lab Interpretation (test code = 87983-6) Abnormal [facility], Urinalysis Rflx Cult/[id number] 22:20:00* Test Item Value Reference Range Interpretation Comme nts Color,Urine (test code = UCOL) Yellow Yellow Clarity,Urine (test code = UCLAR) Clear Clear Ph, Urine (test code = UPH) 7.0 5.0-9.0 N Specific [place],Urine (test code = USG) 1.020 1.005-1.030 N [...] code = ULEU) Negative mg/dL Negative Drug Screen,[id number] 22:20:00* Test Item Value Reference Range Interpretation [...] UPROP) Negative Negative Complete Blood Count Auto [id number] 21:21:00* Test Item Value Reference Range Interpretation [...] code = NRBCP) 0 % Comprehensive Metabolic [id number] 21:21:00* Test Item Value Reference Range Interpretation [...] Reported eGFR is based on the CKD-EPI 202 equation thatdoes not use a race coefficient. Additional information canbe found at:[email or web address]_[email or web address] 5.pdf ([email or web address]) [Automated message] The system [...] = ALP) 134 U/L 46-116 H Ethanol [id number] 21:21:00* Test Item Value Reference Range Interpretation Comme nts Ethanol (test code = ETOH) < 3 mg/dL The pharmacologi yudy response to blood alcohol levels mayvary from individual to individual. The fatal concentrationhas been reported to be >400mg/dL. POCT GLUCOSE (AUTOMATED)2022-08-11 13:40:35* Test Item Value Reference Range Interpretation Comme nts POCT GLU (test code = 4092259260) 121 mg/dL 70-110 H Lab Interpretation (test cod e = 11713-6) Abnormal [facility] GLUCOSE (AUTOMATED)2022-08-11 02:18:58* Test Item Value Reference Range Interpretation Comme nts POCT GLU (test code = 7285017122) 183 mg/dL 70-110 H Lab Interpretation (test cod e = 00350-5) Abnormal [facility] GLUCOSE (AUTOMATED)2022-08-10 23:16:11* Test Item Value Reference Range Interpretation Comme nts POCT GLU (test code = 5257516839) 176 mg/dL 70-110 H Lab Interpretation (test cod e = 97386-6) Abnormal [facility] GLUCOSE (AUTOMATED)2022-08-10 18:22:51* Test Item Value Reference Range Interpretation Comme nts POCT GLU (test code = 6899695169) 165 mg/dL 70-110 H Lab Interpretation (test cod e = 58546-0) Abnormal [facility] GLUCOSE (AUTOMATED)2022-08-10 14:18:05* Test Item Value Reference Range Interpretation Comme nts POCT GLU (test code = 4983217478) 138 mg/dL 70-110 H Lab Interpretation (test cod e = 75057-4) Abnormal [facility] GLUCOSE (AUTOMATED)2022-08-10 11:01:21* Test Item Value Reference Range Interpretation Comme nts POCT GLU (test code = 1843972516) 143 mg/dL 70-110 H Lab Interpretation (test cod e = 69396-8) Abnormal [facility] [id number] 06:51:18* Test Item Value Reference Range Interpretation Comme nts TROPONIN I (test code = 9854550110) 0.008 ng/mL <=0.034 JUAN ALBERTO (test code [...] of biotin. Lab Interpretation (test code = 49954-7) Normal [facility]-TERMINAL [id number] 06:47:37* Test Item Value Reference Range Interpretation Comme nts NT-proBNP (test code = 1795007519) 37 pg/mL <=125 JUAN ALBERTO (test code = JUAN ALBERTO) Biotin has been reported to cause a negative bias, interpret results relative to patient's use of biotin. Lab Interpretation (test code = 37199-7) Normal [facility]2023-[facility]-19 06:25:52 ALCOHOL<10mg/dL08/10/2022 12:25 AM [facility]<10 Ajeounpv75-950 Toxic>100 Depression of BILINGUAL SALES 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 Fatalities ReportedCHRISTUS [facility] SouthCOM. METABOLIC PANEL (77176)2022-08-10 06:19:15* Test Item Value Reference Range Interpretation Comme nts NA (test code = 6991628105) 135 mmol/L 135-145 K (test code = 7874286723) 4.3 mmol/L 3.5-5.0 CL (test code = 7336455654) 98 mmol/L 98-108 CO2 TOTAL (test code = 9682984649) 30 mmol/L 23-31 AGAP (test code = 3134215153) 7 2-16 BUN (test code = 0626203188) 11 mg/dL 7-23 GLUCOSE (test code = 6039955967) 153 mg/dL 70-110 H CREATININE (test code = 5993911773) 0.77 mg/dL 0.60-1.25 TOTAL BILI (test code = 0762607891) 0.9 mg/dL 0.1-1.1 CALCIUM (test code = 3225931049) 10.0 mg/dL 8.6-10.6 T PROTEIN (test code = 2168074091) 7.7 g/dL 6.3-8.2 ALBUMIN (test code = 0795826494) 4.6 g/dL 3.5-5.0 ALK PHOS (test code = 2134785546) 92 U/L 34-122 ALTv (test code = 1742-6) 35 U/L 5-50 AST(SGOT) (test code = 8025722390) 42 U/L 13-40 H eGFR (test code = 9974351767) 106.1 mL/min/1.73m2 JUAN ALBERTO (test code = [...] imaging tests). Lab Interpretation (test code = 46898-3) Abnormal [facility]2023-02-19 06:19:15* Test Item Value Reference Range Interpretation Comme nts MAGNESIUM (test code = 8525893511) 2.2 mg/dL 1.7-2.4 Lab Interpretation (test cod e = 86839-9) Normal [facility]2023-02-19 06:18:55* Test Item Value Reference Range Interpretation Comme nts LIPASE (test code = 5597515497) 18 U/L 0-220 Lab Interpretation (test cod e = 03653-1) Normal [facility]CREATINE [id number] 06:18:55* Test Item Value Reference Range Interpretation Comme nts CK (test code = 1292530218) 174 U/L 33-194 Lab Interpretation (test cod e = 23308-9) Normal [facility] WITH [id number] 06:02:35* Test Item Value Reference Range Interpretation [...] 32.4 g/dL 31.2-35.0 RDW-SD (test code = 71978-0) 50.2 fL 38.5-51.6 RDW-CV (test code = 788-0) 14.3 % 12.1-15.4 PLT (test code = 777-3) 241 See_Comment [Automated messa ge] The system which generated this result transmitted reference range: 150 - 328 10*3/?L. The reference range was not used to interpret this result as normal/abnormal. MPV (test code = 61209-3) 8.6 fL 9.8-13.0 L NRBC/100 WBC (test code = 8647075281) 0.0 See_Comment [Automated me ssage] The system which generated this result transmitted reference range: 0.0 - 10.0 /100 WBCs. The reference range was not used to interpret this result as normal/abnormal. NRBC x10^3 (test code = 3990795998) See_Comment [Automated messa ge] The system which generated this result transmitted reference range: 10*3/?L. The reference range was not used to interpret this result as normal/abnormal. GRAN MAT (NEUT) % (test code = 770-8) 63.9 % IMM GRAN % (test code = 3894276474) 0.50 % LYMPH % (test code = 736-9) 17.6 % MONO % (test code = 5905-5) 16.5 % EOS % (test code = 713-8) 0.7 % BASO % (test code = 706-2) 0.8 % GRAN MAT x10^3(ANC) (test code = 3381825130) 4.79 10*3/uL 1.99-6.95 IMM GRAN x10^3 (test code = 4780678892) 0.04 10*3/uL 0.00-0.06 LYMPH x10^3 (test code = 731-0) 1.32 10*3/uL 1.09-3.23 MONO x10^3 (test code = 742-7) 1.24 10*3/uL 0.36-1.02 H EOS x10^3 (test code = 711-2) 0.05 10*3/uL 0.06-0.53 L BASO x10^3 (test code = 704-7) 0.06 10*3/uL 0.01-0.09 Lab Interpretation (test code = 84644-9) Abnormal [facility] [id number] 15:15:32* Test Item Value Reference Range Interpretation Comments TROPONIN I (test code = 1267283298) 0.007 ng/mL See_Comment [Automated message] The system [...] of biotin. Lab Interpretation (test code = 09993-6) Normal [facility] SouthaPTT2022-10-16 15:08:29* Test Item Value Reference Range Interpretation Comme [facility] APTT Patient (test code = 3173-2) See_Comment [Automated message] The system which generated this result transmitted reference range: 23 - 38 Seconds. The reference range was not used to interpret this result as normal/abnormal. JUAN ALBERTO (test code = JUAN ALBERTO) The [facility] patient population mean normal value for aPTT is 30 seconds. Lab Interpretation (test code = 06117-7) Normal [facility] SouthPROTHROMBIN TIME / [id number] 15:06:28* Test Item Value Reference Range Interpretation Comme [facility] PROTIME PATIENT (test code = 5964-2) See_Comment [Automated messa ge] The system which generated this result transmitted reference range: 12.0 - 14.7 Seconds. The reference range was not used to interpret this result as normal/abnormal. INR (test code = 6301-6) Normal INR <1.1; Warfarin Therapeutic range 2.0 to 3.0 or 2.5 to 3.5, depending upon the indications. Lab Interpretation (test code = 47366-7) Normal [facility]. METABOLIC PANEL (53278)2022-04-06 15:03:31* Test Item Value Reference Range Interpretation Comme [facility] NA (test code = 8328457174) 136 mmol/L 135-145 K (test code = 0224310807) 5.0 mmol/L 3.5-5 CL (test code = 5130602139) 104 mmol/L 98-108 CO2 TOTAL (test code = 2092572574) 21 mmol/L 23-31 L AGAP (test code = 5169174326) 2-16 BUN (test code = 4170773512) 11 mg/dL 7-23 GLUCOSE (test code = 3649347584) 162 mg/dL 70-110 H CREATININE (test code = 4744435518) 0.52 mg/dL 0.6-1.25 L TOTAL BILI (test code = 8862871679) 1.0 mg/dL 0.1-1.1 CALCIUM (test code = 7074778231) 9.3 mg/dL 8.6-10.6 T PROTEIN (test code = 5783751284) 7.4 g/dL 6.3-8.2 ALBUMIN (test code = 7541693815) 4.4 g/dL 3.5-5 ALK PHOS (test code = 3270040023) 134 U/L 34-122 H ALTv (test code = 1742-6) 17 U/L 5-50 AST(SGOT) (test code = 4582693799) 38 U/L 13-40 eGFR (test code = 5131316089) mL/min/1.73m2 JUAN ALBERTO (test code = JUAN [...] imaging tests). Lab Interpretation (test code = 42089-4) Abnormal [facility]IP[facility], [id number] 15:03:31* Test Item Value Reference Range Interpretation Comme nts LIPASE (test code = 2430610761) 29 U/L 0-220 Lab Interpretation (test cod e = 20470-2) Normal [facility] WITH [id number] 14:51:49* Test Item Value Reference Range Interpretation Comme nts WBC (test code = 6690-2) See_Comment [Automated [employer]] The system which generated this result transmitted reference range: 4.20 - 10.70 10*3/?L. The reference range was not used to interpret this result as normal/abnormal. RBC (test code = 789-8) See_Comment [Automated [employer]] The system which generated this result [...] 34.0 g/dL 31.2-35 RDW-SD (test code = 69929-9) 45.9 fL 38.5-51.6 RDW-CV (test code = 788-0) 13.3 % 12.1-15.4 PLT (test code = 777-3) See_Comment [Automated [employer]] The system which generated this result transmitted reference range: 150 - 328 10*3/?L. The reference range was not used to interpret this result as normal/abnormal. MPV (test code = 24038-9) 8.4 fL 9.8-13 L NRBC/100 WBC (test code = [id number]) See_Comment [Automated me [employer]age] The system which generated this result transmitted reference range: 0.0 - 10.0 /100 WBCs. The reference range was not used to interpret this result as normal/abnormal. NRBC x10^3 (test code = [id number]) See_Comment [Automated messa ge] The system which generated this result transmitted reference range: 10*3/?L. The reference range was not used to interpret this result as normal/abnormal. GRAN MAT (NEUT) % (test code = 770-8) 63.0 % IMM GRAN % (test code = 4777282309) 0.50 % LYMPH % (test code = 736-9) 25.2 % MONO % (test code = 5905-5) 9.8 % EOS % (test code = 713-8) 0.3 % BASO % (test code = 706-2) 1.2 % GRAN MAT x10^3(ANC) (test code = 2787403648) 3.73 10*3/uL 1.99-6.95 IMM GRAN x10^3 (test code = [id number]) 0.03 10*3/uL 0-0.06 LYMPH x10^3 (test code = 731-0) 1.49 10*3/uL 1.09-3.23 MONO x10^3 (test code = 742-7) 0.58 10*3/uL 0.36-1.02 EOS x10^3 (test code = 711-2) 0.06-0.53 L BASO x10^3 (test code = 704-7) 0.07 10*3/uL 0.01-0.09 Lab Interpretation (test code = 95129-3) [facility] Rflx Cult/Xrsjs2080-53-29 13:53:00* Test Item Value Reference Range Interpretation Comme nts Color,Urine (test code = UCOL) Yellow Yellow Clarity,Urine (test code = UCLAR) Cloudy Clear A Ph, Urine (test code = UPH) 7.5 5.0-9.0 N Specific [place],Urine (test code = USG) 1.025 1.005-1.030 N [...] = ULEU) Negative mg/dL Negative UF REFLEXDrug Screen,[id number] 13:53:00* Test Item Value Reference Range Interpretation [...] UPROP) Negative Negative Complete Blood Count Auto [id number] 12:58:00* Test Item Value Reference Range Interpretation [...] = NRBCP) 0 % Coronavirus PCR, COVID19 [id number] 12:58:00* Test Item Value Reference Range Interpretation Comme nts Coronavirus PCR, COVID19 Rapid (test code = SARSCOV2) Coronavirus PCR, COVID19 Rapid (test code = NHJAACB48.1) Reference Range: Negative SARS-CoV-2 PCR Result: (test code = SARS-CoV-2 PCR Result:) Negative by RT-PCR COVID-19 Status: AsymptomaticComprehensive Metabolic Pzpdv0279-46-87 12:58:00* Test Item Value Reference Range Interpretation [...] = ALP) 144 U/L 46-116 H Ethanol Tnklv4106-12-24 12:58:00* Test Item Value Reference Range Interpretation Comme nts Ethanol (test code = ETOH) < 3 mg/dL The pharmacologi yudy response to blood alcohol levels mayvary from individual to individual. The fatal concentrationhas been reported to be >400mg/dL. [id number] 01:47:56* Test Item Value Reference Range Interpretation Comme nts [place] (test code = 6641060078) 0.7 mmol/L 0.6-1.2 JUAN ALBERTO (test code = JUAN ALBERTO) Toxic Range: ? Greater than 1.2 mmol/L Lab Interpretation (test code = 02817-0) Normal [facility]OP[facility] [id number] 00:26:53* Test Item Value Reference Range Interpretation Comments TROPONIN I (test code = 3956570242) 0.002 ng/mL See_Comment [Automated message] The system [...] of biotin. Lab Interpretation (test code = 29145-6) Normal [facility]2022-[facility]-01 00:18:52 ALCOHOL<10mg/dL01/19/2022 7:18 PM [facility] Xiqjzemc64-961 Toxic>100 Depression of BILING[employer] SALES 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 Fatalities ReportedCH[facility]STUS [facility] SouthCOMP. METABOLIC PANEL (00496)2022-01-20 00:16:16* Test Item Value Reference Range Interpretation Comme nts NA (test code = 7914173622) 137 mmol/L 135-145 K (test code = 9281526273) 4.5 mmol/L 3.5-5 CL (test code = 4841287012) 103 mmol/L 98-108 CO2 TOTAL (test code = 8236935932) 26 mmol/L 23-31 AGAP (test code = 4198276558) 2-16 BUN (test code = 7785758928) 10 mg/dL 7-23 GLUCOSE (test code = 0869536874) 121 mg/dL 70-110 H CREATININE (test code = 3347992344) 0.65 mg/dL 0.6-1.25 TOTAL BILI (test code = 6745601276) 0.8 mg/dL 0.1-1.1 CALCIUM (test code = 2528109416) 11.4 mg/dL 8.6-10.6 H T PROTEIN (test code = 7513512958) 7.2 g/dL 6.3-8.2 ALBUMIN (test code = 6307068752) 4.6 g/dL 3.5-5 ALK PHOS (test code = 9395678520) 112 U/L 34-122 ALTv (test code = 1742-6) 19 U/L 5-50 AST(SGOT) (test code = 4440840100) 26 U/L 13-40 eGFR (test code = 5566262409) mL/min/1.73m2 JUAN ALBERTO (test code = JUAN [...] imaging tests). Lab Interpretation (test code = 99645-6) Abnormal [facility] WITH [id number] 23:43:54* Test Item Value Reference Range Interpretation Comme nts WBC (test code = 6690-2) See_Comment [Automated [employer]] The system which generated this result transmitted reference range: 4.20 - 10.70 10*3/?L. The reference range was not used to interpret this result as normal/abnormal. RBC (test code = 789-8) See_Comment [Automated [employer]] The system which generated this result [...] 34.4 g/dL 31.2-35 RDW-SD (test code = 49754-3) 44.0 fL 38.5-51.6 RDW-CV (test code = 788-0) 12.6 % 12.1-15.4 PLT (test code = 777-3) See_Comment [Automated [employer]] The system which generated this result transmitted reference range: 150 - 328 10*3/?L. The reference range was not used to interpret this result as normal/abnormal. MPV (test code = 69392-1) 9.1 fL 9.8-13 L NRBC/100 WBC (test code = 9870369967) See_Comment [Automated [employer] ssage] The system which generated this result transmitted reference range: 0.0 - 10.0 /100 WBCs. The reference range was not used to interpret this result as normal/abnormal. NRBC x10^3 (test code = 5737090925) See_Comment [Automated [employer]] The system which generated this result transmitted reference range: 10*3/?L. The reference range was not used to interpret this result as normal/abnormal. GRAN MAT (NEUT) % (test code = 770-8) 69.8 % IMM GRAN % (test code = 2541914131) 0.40 % LYMPH % (test code = 736-9) 18.0 % MONO % (test code = 5905-5) 10.9 % EOS % (test code = 713-8) 0.1 % BASO % (test code = 706-2) 0.8 % GRAN MAT x10^3(ANC) (test code = 4656071710) 5.58 10*3/uL 1.99-6.95 IMM GRAN x10^3 (test code = 2798480018) 0.03 10*3/uL 0-0.06 LYMPH x10^3 (test code = 731-0) 1.44 10*3/uL 1.09-3.23 MONO x10^3 (test code = 742-7) 0.87 10*3/uL 0.36-1.02 EOS x10^3 (test code = 711-2) 0.06-0.53 L BASO x10^3 (test code = 704-7) 0.06 10*3/uL 0.01-0.09 Lab Interpretation (test code = 60147-3) Abnormal [facility] GLUCOSE (AUTOMATED)2022-01-19 22:27:41* Test Item Value Reference Range Interpretation Comme nts POCT GLU (test code = 5887883731) 123 mg/dL 70-110 H Lab Interpretation (test cod e = 48859-3) Abnormal [facility] GLUCOSE (AUTOMATED)2021-12-30 22:08:16* Test Item Value Reference Range Interpretation Comme nts POCT GLU (test code = 2853837602) 167 mg/dL 70-110 H Lab Interpretation (test cod e = 65978-7) Abnormal [facility] GLUCOSE (AUTOMATED)2021-12-30 16:50:40* Test Item Value Reference Range Interpretation Comme nts POCT GLU (test code = 9817121623) 154 mg/dL 70-110 H Lab Interpretation (test cod e = 71185-3) Abnormal [facility] GLUCOSE (AUTOMATED)2021-12-30 12:38:43* Test Item Value Reference Range Interpretation Comme nts POCT GLU (test code = 6784947729) 164 mg/dL 70-110 H Lab Interpretation (test cod e = 25983-6) Abnormal [facility] GLUCOSE (AUTOMATED)2021-12-30 02:14:58* Test Item Value Reference Range Interpretation Comme nts POCT GLU (test code = 1406850546) 220 mg/dL 70-110 H Lab Interpretation (test cod e = 33710-2) Abnormal [facility] GLUCOSE (AUTOMATED)2021-12-29 21:50:02* Test Item Value Reference Range Interpretation Comme nts POCT GLU (test code = 2196852204) 191 mg/dL 70-110 H Lab Interpretation (test cod e = 32328-4) Abnormal [facility] GLUCOSE (AUTOMATED)2021-12-29 20:15:01* Test Item Value Reference Range Interpretation Comme nts POCT GLU (test code = 7871548131) 163 mg/dL 70-110 H Lab Interpretation (test cod e = 25778-5) Abnormal [facility]ansthoracic echo (TTE)2021-12-29 19:12:22* Test Item Value Reference Range Interpretation Comme nts Height (test code = 0497400885) in Weight (test code = 8825006873) lbs Systolic BP (test code = 7482507742) mmHg Diastolic BP (test code = 0425429389) mmHg Heart Rate (test code = 7035476454) bpm BSA (test code = 4712722364) 1.62 m2 Ao root annulus (test code = 9118661994) 2.45 cm Ao root diam (test code = 4814637485) 2.45 cm Aortic root (test code = 5563250164) 2.45 cm ACS (test code = 0818592797) 1.66 cm LA size (test code = 7642268754) 3.2 cm LVOT diameter (test code = 1210054485) 1.95 cm LVIDD (test code = 4688880855) 3.60 cm IVS (test code = 1769919294) 0.94 cm Interventricular Septum Diastolic Thickness by 2D (test code = 1430903) 0.94 cm LVPWD (test code = 3794797179) 0.80 cm PW (test code = 3221135292) 0.80 cm 0.6-1.1 EF(Teich) (test code = 2963969911) 52.80 % LVIDS (test code = 7480279303) 2.60 cm FS (test code = 6695090977) 27 % EF - 2D (test code = 06685675) 52.80 % LAV(MOD-sp4) (test code = 6425118842) 16.80 mL MV Peak E Jovany (test code = 0003251648) 46.1 cm/s E wave decelartion time (test code = 4149586198) 0.31 s MV Peak A Jovany (test code = 7190252665) 58.1 cm/s E/A ratio (test code = 1504845215) ratio MV E/e' septal (test code = 1903304931) 5.7 cm/s Tapse (test code = 3835187728) 1.60 cm LVOT stroke volume (test code = 5233472465) 52.10 cm3 LVOT peak jovany (test code = 2586421819) 110.6 cm/s LVOT mn grad (test code = 4316686606) mmHg AV LVOT peak gradient (test code = 2913831856) mmHg LVOT peak VTI (test code = 1232739262) 17.4 cm LV V1 mean (test code = 4590885682) 66.10 cm/s Aortic valve mean velocity (test code = 3959343021) 73.0 cm/s Ao peak jovany (test code = 5975574826) 124.6 cm/s Ao VTI (test code = 5854679496) 18.6 cm AV area by cont VTI (test code = 6041936081) 2.8 cm2 AV area peak jovany (test code = 5525639131) 2.7 cm2 Ao max PG (test code = 2122497526) 6.20 mm[Hg] AV peak gradient (test code = 9450933349) mmHg AV valve area (test code = 8177575782) 2.80 cm2 AV mean gradient (test code = 1663187841) mmHg Radiology Study observation (narrative) (test code = 32541-5) JUAN ALBERTO (test code = JUAN ALBERTO) [...] of Lumason ultrasound enhancing agent used. [facility])2021-12-29 12:50:31* Test Item Value Reference Range Interpretation Comme nts POCT GLU (test code = 2348078461) 141 mg/dL 70-110 H Lab Interpretation (test cod e = 96491-1) Abnormal [facility] SouthTroponin [id number] 10:38:31* Test Item Value Reference Range Interpretation Comments TROPONIN I (test code = 1912146736) 0.003 ng/mL See_Comment [Automated message] The system [...] of biotin. Lab Interpretation (test code = 64264-1) Normal [facility] SouthLIPID PANEL (21088)(TOTAL CHOLESTEROL, TRIGLYCERIDES, HDL)2021-12-29 05:56:47* Test Item Value Reference Range Interpretation Comme nts CHOL (test code = 6428025192) 168 mg/dL 120-200 HDL (test code = 4106979721) 102 mg/dL See_Comment [[employer]] The system which generated this result transmitted reference range: >=40. The reference range was not used to interpret this result as normal/abnormal. HDLC RATIO (test code = 3779256752) See_Comment [Automated [employer]] The system which generated this result transmitted reference range: <=5.0. The reference range was not used to interpret this result as normal/abnormal. TRIG (test code = 7057238613) 55 mg/dL 30-170 LDL CHOL (test code = 78299-7) 55 mg/dL See_Comment [[employer]] The system which generated this result transmitted reference range: <=160. The reference range was not used to interpret this result as normal/abnormal. VLDL (test code = 4414958367) 11 mg/dL 5-60 Lab Interpretation (test code = 94840-6) Normal [facility] SouthThyroid Stimulating Hormone (TSH)2021-12-29 05:40:29* Test Item Value Reference Range Interpretation Comme nts TSH (test code = 5786177853) See_Comment Biotin has been reported to cause a negative bias, interpret results relative to patient's use of biotin. [Automated message] The system which generated this result transmitted reference range: 0.45 - 4.70 mIU/L. The reference range was not used to interpret this result as normal/abnormal. Lab Interpretation (test code = 45853-2) Normal [facility] [id number] 05:34:29* Test Item Value Reference Range Interpretation Comments TROPONIN I (test code = 1318493629) 0.006 ng/mL See_Comment [Automated message] The system [...] of biotin. Lab Interpretation (test code = 16023-8) Normal [facility]2022-[facility]-10 04:43:01 ALCOHOL<10mg/dL12/28/2021 11:43 PM [facility] [...] > 6.5% Lab Interpretation (test code = 29834-4) [facility] [id number] 21:26:50* Test Item Value Reference Range Interpretation Comments TROPONIN I (test code = 5100836308) 0.002 ng/mL See_Comment [Automated message] The system [...] of biotin. Lab Interpretation (test code = 93216-2) Normal [facility] SouthN-TERMINAL VLP-[id number] 21:23:29* Test Item Value Reference Range Interpretation Comme nts NT-proBNP (test code = 5163041074) 41 pg/mL See_Comment [Automated message] The system which generated this result transmitted reference range: <=125. The reference range was not used to interpret this result as normal/abnormal. JUAN ALBERTO (test code = JUAN ALBERTO) Biotin has been reported to cause a negative bias, interpret results relative to patient's use of biotin. Lab Interpretation (test code = 64441-6) Normal [facility] SouthAMMONIA, [id number] 21:20:38* Test Item Value Reference Range Interpretation Comme nts AMMONIA (test code = 7190318510) 9-33 L Slight hemolysis Lab Interpretation (test code = 00127-5) Abnormal [facility]. METABOLIC PANEL (07488)2021-12-28 21:08:48* Test Item Value Reference Range Interpretation Comme nts NA (test code = 8541208582) 137 mmol/L 135-145 K (test code = 9872976013) 4.5 mmol/L 3.5-5 CL (test code = 8541421859) 97 mmol/L 98-108 L CO2 TOTAL (test code = 4159372533) 29 mmol/L 23-31 AGAP (test code = 7225845830) 2-16 BUN (test code = 7951435148) 10 mg/dL 7-23 GLUCOSE (test code = 2646222093) 188 mg/dL 70-110 H CREATININE (test code = 2138400708) 0.58 mg/dL 0.6-1.25 L TOTAL BILI (test code = 9782726858) 0.8 mg/dL 0.1-1.1 CALCIUM (test code = 7157565160) 10.5 mg/dL 8.6-10.6 T PROTEIN (test code = 0385097636) 7.6 g/dL 6.3-8.2 ALBUMIN (test code = 4626013349) 4.5 g/dL 3.5-5 ALK PHOS (test code = 4908180878) 107 U/L 34-122 ALTv (test code = 1742-6) 66 U/L 5-50 H AST(SGOT) (test code = 6759688644) 96 U/L 13-40 H eGFR (test code = 9051407567) mL/min/1.73m2 JUAN ALBERTO (test code = JUAN [...] imaging tests). Lab Interpretation (test code = 85180-4) Abnormal [facility] SouthPROTHROMBIN TIME / [id number] 21:01:25* Test Item Value Reference Range Interpretation Comme nts PROTIME PATIENT (test code = 5964-2) See_Comment [Automated [employer]] The system which generated this result transmitted reference range: 12.0 - 14.7 Seconds. The reference range was not used to interpret this result as normal/abnormal. INR (test code = 6301-6) Normal INR <1.1; Warfarin Therapeutic range 2.0 to 3.0 or 2.5 to 3.5, depending upon the indications. Lab Interpretation (test code = 85230-8) Normal [facility] SouthCBC WITH [id number] 20:54:03* Test Item Value Reference Range Interpretation Comme nts WBC (test code = 6690-2) See_Comment [Automated [employer] The system which generated this result transmitted reference range: 4.20 - 10.70 10*3/?L. The reference range was not used to interpret this result as normal/abnormal. RBC (test code = 789-8) See_Comment [Automated [employer]] The system which generated this result [...] 34.2 g/dL 31.2-35 RDW-SD (test code = 02641-5) 47.8 fL 38.5-51.6 RDW-CV (test code = 788-0) 13.3 % 12.1-15.4 PLT (test code = 777-3) See_Comment [Automated [employer]] The system which generated this result transmitted reference range: 150 - 328 10*3/?L. The reference range was not used to interpret this result as normal/abnormal. MPV (test code = 30612-3) 8.6 fL 9.8-13 L NRBC/100 WBC (test code = 6824942271) See_Comment [Automated [employer]] The system which generated this result transmitted reference range: 0.0 - 10.0 /100 WBCs. The reference range was not used to interpret this result as normal/abnormal. NRBC x10^3 (test code = 5424588596) See_Comment [Automated [employer]] The system which generated this result transmitted reference range: 10*3/?L. The reference range was not used to interpret this result as normal/abnormal. GRAN MAT (NEUT) % (test code = 770-8) 64.1 % IMM GRAN % (test code = 9973691199) 0.40 % LYMPH % (test code = 736-9) 16.6 % MONO % (test code = 5905-5) 17.2 % EOS % (test code = 713-8) 0.2 % BASO % (test code = 706-2) 1.5 % GRAN MAT x10^3(ANC) (test code = 6097594377) 3.47 10*3/uL 1.99-6.95 IMM GRAN x10^3 (test code = 4784547391) 0-0.06 LYMPH x10^3 (test code = 731-0) 0.90 10*3/uL 1.09-3.23 L MONO x10^3 (test code = 742-7) 0.93 10*3/uL 0.36-1.02 EOS x10^3 (test code = 711-2) 0.06-0.53 L BASO x10^3 (test code = 704-7) 0.08 10*3/uL 0.01-0.09 Lab Interpretation (test code = 50687-6) Abnormal [facility] SouthEthanol Yabmw8572-92-06 21:08:00* Test Item Value Reference Range Interpretation Comme nts Ethanol (test code = ETOH) < 3 mg/dL The pharmacologi yudy response to blood alcohol levels mayvary from individual to individual. The fatal concentrationhas been reported to be >400mg/dL. Complete Blood Count Auto [id number] 17:33:00* Test Item Value Reference Range Interpretation [...] = NRBCP) 0 % UA, Urinalysis Rflx Cult/[id number] 17:33:00* Test Item Value Reference Range Interpretation Comme nts Color,Urine (test code = UCOL) Dark Yellow Yellow A Clarity,Urine (test code = UCLAR) Clear Clear Ph, Urine (test code = UPH) 6.5 5.0-9.0 N Specific [place],Urine (test code = USG) 1.015 1.005-1.030 N [...] = ULEU) Trace mg/dL Negative A Urine Xjgyprxyshp6532-12-21 17:33:00* Test Item Value Reference Range Interpretation Comme nts RBC,Urine (test code = URBCUF) None Seen /HPF 0-2 WBC,Urine (test code = UWBCUF) 0-5 /HPF 0-5 Epithelial Cell,Urine (test code = UECUF) 0-5 /HPF 0-5 Casts,Urine (test code = UCASTUF) None Seen /LPF None Seen Bacteria,Urine (test code = UBACTUF) None Seen /hpf None Seen Drug Screen,Zfgsg2803-58-15 17:33:00* Test Item Value Reference Range Interpretation [...] code = UPROP) Negative Negative Comprehensive Metabolic Mbkwi6960-16-57 17:33:00* Test Item Value Reference Range Interpretation [...] 101 U/L 46-116 N Sars-CoV-2/FLU A/B RSV [id number] 17:31:00* Test Item Value Reference Range Interpretation [...] SARS-CoV-2 PCR Result:) Negative by RT-PCR Drug Screen,Sfcfo8176-98-65 17:20:00* Test Item Value Reference Range Interpretation [...] UPROP) Negative Negative Complete Blood Count Auto [id number] 17:14:00* Test Item Value Reference Range Interpretation [...] code = NRBCP) 0 % Comprehensive Metabolic Azlcj9235-18-07 17:14:00* Test Item Value Reference Range Interpretation [...] = ALP) 207 U/L 46-116 H Ethanol Stphn3189-22-64 17:14:00* Test Item Value Reference Range Interpretation Comme nts Ethanol (test code = ETOH) 192 mg/dL Complete Blood Count Auto [id number] 20:20:00* Test Item Value Reference Range Interpretation [...] code = NRBCP) 0 % Comprehensive Metabolic Bhzla7843-09-38 20:20:00* Test Item Value Reference Range Interpretation [...] = ALP) 189 U/L 46-116 H Ethanol Hmdvz3709-13-08 20:20:00* Test Item Value Reference Range Interpretation Comme nts Ethanol (test code = ETOH) 10 mg/dL Sars-CoV-2/FLU A/B RSV [id number] 20:20:00* Test Item Value Reference Range Interpretation [...] Negative by Nucleic Acid Amplification UA, Urinalysis Mcwzdzjhgsk8561-65-37 20:20:00* Test Item Value Reference Range Interpretation Comme nts Color,Urine (test code = UCOL) Yellow Y Clarity,Urine (test code = UCLAR) Clear Clear PH,Urine (test code = UPH.XX) 7.0 5.5-8.5 Specific [place],Urine (test code = USG) 1.020 1.005-1.030 N [...] code = ULEU) Negative cells/uL Negative Drug Screen,Fvsvx7890-54-14 20:20:00* Test Item Value Reference Range Interpretation [...] RESULT TO FO LLOW CT head/brain wo [facility] [address] [place] [address] Patient Name: Walt Velazquez Medical Record#: [id number] Address: Homeless City/State/Zip: [place] [address]: Vinnie Navarro MD Insurance: Self Pay /Age/Sex: 1970/50/M Admit/Reg Date: 09/17/[address]: Vinnie Navarro MD Location: [facility]/ PCP: PcpMd KERWIN Jimenez Date of Service: 09/17/21 Order (s): CT head/brain wo con CPT Code: 42160 Report Number: [id number] Reason for Exam: Altered mental status Location [...] Pcp-None,Md SURESH Notes Date/Time Note Provider Source 2023-12-13 00:22:14 Pt given printed and verbal discharge instructions regarding chest pain Pt verbalized understanding of instructions, pt awake alert oriented, resp reg unlabored, skin w/d, color appropriate for race, moves all ext well,pt encouraged to follow up with pcp. Advised to seek medical attention for new/prolonged/worsening of symptoms, Symptoms increased chest pain No adverse reaction to meds given in ER noted upon discharge PIV d'cd, dressing to site, catheter in tact. Awake, alert oriented, resp reg unlabored, skin w/d, pt leaving amb with steady gait, in no apparent distress, T [facility] 2023-12-12 22:20:05 Pt removed all monitoring equipment T [facility] [employer] 2023-12-12 20:33:23 Pt brought in by [place] [facility] for medical clearance. [place] [facility] check pt out on scene but after pt complained of chest pain. [place] [facility] brought pt in for clearance for county. Zeina Albrecht RN [facility] 2023-11-05 16:26:20 Pt discharged with diagnosis of CP. Printed and verbal instructions reviewed with and given to pt. Prescriptions given x 0. Pt verbalized understanding of teaching and recommended follow-up. Denies questions or concerns at this time. Pt ambulatory to holding room to await transportation at discharge. Appears in no apparent distress. No ataxia noted. [facility] Renae Saldivar RN [facility] 2023-11-05 14:56:10 Walt Festus Velazquez Sr. is a 52 year old male arrive via [facility] c/o " throbbing ball in chest" since 0600 has been constant, pt immediately asks for food, Emani Gomez RN [facility]
== END 2024-02-06 12:06 | disposition left against medical advice (07) ==
LOC: ER 11:44
DX: R51.9 Headache, unspecified (principal); F10.20 Alcohol dependence, uncomplicated; F17.210 Nicotine dependence, cigarettes, uncomplicated
CPT/HCPCS: 99283

== ENCOUNTER 2024-02-06 18:56 | Emergency (ER) | payer SELFPAY ==
--- NOTE | 2024-02-06 19:30 | ER ---
Nurse's Notes [facility] Name: Walt Velazquez Age: 53 yrs Sex: Male : 1970 Arrival Date: 02/06/2024 Time: 18:56 Bed 20 Private MD: Diagnosis: Encounter for general adult medical examination Presentation: 02/05 18:54 Chief complaint: EMS states: PATIENT LEFT EARLIER AMA. CAME BACK TODAY AFTER A GEOTECHNICAL ENGINEER db SAW HIM STUMBLING IN THE ROAD. CALLED 911. PT STATES WAS WALKING HOME. Coronavirus screen: Client denies travel out of the [place] in the last 14 days. At this time, the client does not indicate any symptoms associated with coronavirus-19. Ebola Screen: Patient negative for fever greater than or equal to 101.5 degrees Fahrenheit, and additional compatible Ebola Virus Disease symptoms Patient denies exposure to infectious person. Patient denies travel to an Ebola-affected area in the 21 days before illness onset. No symptoms or risks identified at this time. Initial Sepsis Screen: Does the patient meet any 2 criteria? No. Patient's initial sepsis screen is negative. Does the patient have a suspected source of infection? No. Patient's initial sepsis screen is negative. Risk Assessment: Do you want to hurt yourself or someone else? Patient reports no desire to harm self or others. Onset of symptoms was February 06, 2024. 18:54 Method Of Arrival: EMS: [facility] db 18:54 Acuity: LATASHA 3 db Triage Assessment: 19:02 General: Appears in no apparent distress. comfortable, Behavior is calm, cooperative. db Pain: Denies pain. Neuro: Level of Consciousness is awake, alert, obeys commands, Oriented to person, place, time, situation. Respiratory: Airway is patent Respiratory effort is even, unlabored, Respiratory pattern is regular, symmetrical. Historical: - Allergies: 19:02 Trazodone; too strong for him; db - PMHx: 19:02 Alcoholism; Hypertensive disorder; Parkinsons; Bipolar II; Seizure; db - PSHx: 19:02 toe amputation; db - Immunization history:: Adult Immunizations unknown. - Infectious Disease History:: Denies. - Social history:: Smoking status: Patient reports the use of cigarette tobacco products, Reported history of juuling and/or vaping. Screenin:36 [facility] ED Fall Risk Assessment (Adult) History of falling in the last 3 months, tm6 including since admission No falls in past 3 months (0 pts) Confusion or Disorientation No (0 pts) Intoxicated or Sedated No (0 pts) Impaired Gait No (0 pts) Mobility Assist Device Used No (0 pt) Altered Elimination No (0 pt) Score/Fall Risk Level 0 - 2 = Low Risk Oriented to surroundings, Maintained a safe environment, Educated pt \T\ family on fall prevention, incl call for assistance when getting out of bed. Abuse screen: Denies threats or abuse. Denies injuries from another. Nutritional screening: No deficits noted. Tuberculosis screening: No symptoms or risk factors identified. Assessment: 19:36 General: Appears in no apparent distress. Behavior is calm, cooperative. Pain: tm6 Complains of pain in face Pain does not radiate. Pain currently is 2 out of 10 on a pain scale. Quality of pain is described as aching. Pain: Complains of pain in face and left arm. Neuro: Level of Consciousness is awake, alert, obeys commands, Oriented to person, place, time, situation. Cardiovascular: Patient's skin is warm and dry. Respiratory: Airway is patent Respiratory effort is even, unlabored, Respiratory pattern is regular, symmetrical. GI: No signs and/or symptoms were reported involving the gastrointestinal system. Abdomen is flat, non-distended. : No signs and/or symptoms were reported regarding the genitourinary system. EENT: No signs and/or symptoms were reported regarding the EENT system. Derm: No signs and/or symptoms reported regarding the dermatologic system. Musculoskeletal: Reports pain in face and left arm Pain is 2 out of 10 on a pain scale. Injury Description: Head injury sustained to right adventism is closed, did not have loss of consciousness. 19:45 Reassessment: Patient appears in no apparent distress at this time. Patient and/or tm6 family updated on plan of care and expected duration. Pain level reassessed. Patient is alert, oriented x 3, equal unlabored respirations, skin warm/dry/pink. Vital Signs: 18:54 BP 116 / 74; Pulse 99; Resp 16; Temp 98.4(O); Pulse Ox 99% ; Weight 63.5 kg; Height 5 db ft. 3 in. ; 19:44 BP 117 / 69; Pulse 114; Resp 18; Temp 98.3; Pulse Ox 97% on R/A; Pain 2/10; tm6 18:54 Body Mass Index 24.80 (63.50 kg, 160.02 cm) db 19:44 Pain Scale: Adult tm6 ED Course: 18:58 Patient arrived in ED. iw 19:00 Shannon Iqbal, RN is Primary Nurse. db 19:02 Kaleb Groves MD is Attending Physician. ec2 19:02 Triage completed. db 19:02 Arm band placed on Patient placed in an exam room. db 19:36 Patient has correct armband on for positive identification. Bed in low position. Call tm6 light in reach. Side rails up X 1. Provided Education on: use of call adames. Client placed on continuous cardiac and pulse oximetry monitoring. NIBP monitoring applied. Pulse ox on. NIBP on. Door closed. Noise minimized. PO fluids given. food given. 19:45 No provider procedures requiring assistance completed. Patient did not have IV access tm6 during this emergency room visit. Administered Medications: No medications were administered Medication: 19:36 VIS not applicable for this client. tm6 Outcome: 19:29 Discharge ordered by . ec2 19:45 Discharged to home ambulatory, tm6 19:45 Condition: stable 19:45 Discharge instructions given to patient, Instructed on discharge instructions, follow up and referral plans. 19:45 Patient left the ED. tm6 Signatures: Marita Hernandez, ROBERTO MEJIA Shannon Iqbal, RN ROBERTO Kaleb Groves MD MD [facility] Ro RN RN tm6
--- NOTE | 2024-02-06 19:30 | EDPHYS ---
Physician Documentation [facility] Name: Walt Velazquez Age: 53 yrs Sex: Male : 1970 Arrival Date: 02/06/2024 Time: 18:56 Bed 20 Private MD: ED Physician Kaleb Groves HPI: 02/05 19:13 This 53 yrs old Male presents to ER via EMS with complaints of General ec2 Weakness. 19:13 Patient arrives today for medical evaluation. Patient has no specific complaint, ec2 reportedly EMS picked him up as he was stumbling. Patient denies any falls injuries or trauma. Denies any specific concerns. Is stating that he is hungry.. Historical: - Allergies: 19:02 Trazodone; too strong for him; db - PMHx: 19:02 Alcoholism; Hypertensive disorder; Parkinsons; Bipolar II; Seizure; db - PSHx: 19:02 toe amputation; db - Immunization history:: Adult Immunizations unknown. - Infectious Disease History:: Denies. - Social history:: Smoking status: Patient reports the use of cigarette tobacco products, Reported history of juuling and/or vaping. ROS: 19:13 Constitutional: as per hpi ec2 Exam: 19:13 Constitutional: GEN: NAD Head: atraumatic Eyes: EOMI Ears: External ears are ec2 normal. CV: regular rate LUNGS: no respiratory distress ABD: non-distended SKIN: no evidence of rashes MSK: no evidence of trauma Vital Signs: 18:54 BP 116 / 74; Pulse 99; Resp 16; Temp 98.4(O); Pulse Ox 99% ; Weight 63.5 kg; Height 5 db ft. 3 in. ; 19:44 BP 117 / 69; Pulse 114; Resp 18; Temp 98.3; Pulse Ox 97% on R/A; Pain 2/10; tm6 18:54 Body Mass Index 24.80 (63.50 kg, 160.02 cm) db 19:44 Pain Scale: Adult tm6 MDM: 19:02 Patient medically screened. ec2 19:13 Data reviewed: vital signs. ED course: Patient arrives today for medical evaluation. ec2 Examination remarkable for well-appearing nontoxic dividual's otherwise in no acute distress with a reassuring examination. Patient has no medical complaint and has no specific concerns, and seems to be decisional, conversational and appropriate, does not appear to be intoxicated and appears to be of sound mind. Will discharge home. Return precautions given.. Administered Medications: No medications were administered Disposition Summary: 02/06/24 19:29 Discharge Ordered Notes: Location: Home ec2 Condition: Stable ec2 Diagnosis - Encounter for general adult medical examination ec2 Followup: ec2 - With: Private Physician - When: - Reason: Re-evaluation by your physician Forms: - Medication Reconciliation Form ec2 - Antibiotic Education ec2 - Prescription Opioid Use ec2 - Patient Portal Instructions ec2 - Leadership Thank You Letter ec2 Signatures: Shannon Iqbal RN RN Kaleb Casillas MD MD ec2
[2024-02-06 19:51] VITALS: BP 117/69; TEMP 98.3; O2SAT 97
--- OUTSIDE RECORDS SUMMARY | 2024-02-09 11:46 | XMS REPORT | Continuity of Care Document ---
Author Name Unknown Address [address] [facility] [address] [place] [address] [facility] Address [address] [facility] [address] [place] [address] Care Team Providers Care Resort Housekeeper Name Role Phone Pcp-None Primary Care Physician Unavailab Rafael Thomas MD Attending Clinician [phone] Sulaiman Hawkins DO Attending Clinician [phone] HEMANT KLEIN Attending Clinician Unavailable Hemant Klein MD Attending Clinician [phone] Pan Pinto Attending Clinician Unavailab JESSICA Gallardo Attending Clinician Unavailable Rayray Driscoll MD Attending Clinician [phone] Jessica Prado MD Attending Clinician [phone] Oswald Murphy MD Attending Clinician [phone] DIYA CHOWDHURY Attending Clinician Unavailab Diya Mackey DO Attending Clinician [phone] Fidel Cuellar Attending Clinician Unavailable DIRK YARBROUGH Attending Clinician Unavailable Leticia Rowland Attending Clinician [phone] Dirk Yarbrough MD Attending Clinician [phone] Faye Portillo LVN Attending Clinician [phone] Pia Reddy Attending Clinician [phone] Vinnie Navarro Attending Clinician Unavailable OSWALD MURPHY Admitting Clinician Unavailable Oswald Murphy MD Admitting Clinician [phone] DIYA CHOWDHURY Admitting Clinician UnavailLeticia Gaytan Admitting Clinician Unavailable JESSICA PRADO Admitting Clinician Unavailable Jessica Prado MD Admitting Clinician [phone] Payers Payer Name Policy Type Policy Number Effective Date Expirati on Date Source Problems Condition Name Condition Details Condition Category Status Onset Date Resolution Date Last Treatment Date Treating Clinician Comments Source Alcohol withdrawal syndrome with complicati on Alcohol withdrawal syndrome with complicati on Disease Active 2-19 00:00: 00 [facility] Type 2 diabetes mellitus with other specified complicati on Type 2 diabetes mellitus with other specified complicati on Disease Active - 00:00: 00 [facility] Dyslipidem ia Dyslipidem ia Disease Active 12-29 00:00: 00 [facility] Chest pain, unspecifie d type Chest pain, unspecifie d type Disease Active 7- 00:00: 00 [facility] Priapism Priapism Disease Active 2013-06- 00:00: 00 [facility] Allergies, Adverse Reactions, Alerts Allergy Name Allergy Type Status Severity Reaction(s) Onset Date Inactive Date Treating Clinician Comments Source No Known Drug Allergie s DA Active U 4-25 00:00: 00 [facility] No Known Drug Allergie s DA Active U 0 9-16 00:00: 00 [facility] No Known Drug Allergie s DA Active U 3-29 00:00: 00 [facility] No Known Drug Allergie s DA Active U 2019-06 2-16 00:00: 00 [facility] No Known Drug Allergie s DA Active U 2019-06 2-15 00:00: 00 [facility] No Known Drug Allergie s DA Active U 2019-06 00:00: 00 [facility] Trazodon e Propensi ty to adverse reaction s Active Other - See comments 10-06 00:00: 00 [facility] TRAZODON E DRUG INGREDI Active Other-Cmnt 10-06 00:00: 00 [facility] Social History Social Habit Start Date Stop Date Quantity Comments Source History of tobacco use Cigarette Smoker [facility] Alcoholic beverage intake 2023-11-07 00:00:00 2023-11-07 00:00:00 Current drinker of alcohol (finding) [facility] History of Social function 2023-11-07 00:00:00 2023-11-07 00:00:00 [facility] Exposure to SARS-CoV-2 (event) 2022-11-01 00:00:00 2022-11-11 13:57:00 Not sure [facility] Tobacco use and exposure 2022-08-10 00:00:00 2022-08-10 00:00:00 User of smokeless tobacco [facility] Alcohol intake 2022-08-10 00:00:00 2022-08-10 00:00:00 Current drinker of alcohol (finding) [facility] Tobacco Comment 2022-08-10 00:00:00 2022-08-10 00:00:00 1/2 a pack a day [facility] Sex assigned at 1970 00:00:00 1970 00:00:00 [facility] Smoking Status Start Date Stop Date Source Smokes tobacco daily 2022-08-10 00:00:00 [facility] Medications Ordered Medication Name Filled Medication Name Start Date Stop Date Current Medication? Ordering Clinician Indication Dosage Frequency Signature (SIG) Comments Components Source NaCl 0.9% (NS) bolus infusion 1,000 mL 11-11 19:45: 00 11-11 20:23 :00 No 1000mL at 999 mL/hr, 1,000 mL, IV Piggyback, ONCE, 1 dose, On Thu11/11/22 at 1445, STAT [facility] multivitami n tablet 1 tablet 08-12 15:00: 00 Yes 1{tbl} 1 tablet, Oral, DAILY, First dose on Thu08/12/22 at 0900, Until Discontinu ed, Routine [facility] foLIC acid (FOLATE) tablet 1 mg 08-12 15:00: 00 Yes 1mg 1 mg, Oral, DAILY, First dose on Thu08/12/22 at 0900, Until Discontinu ed, Routine [facility] foLIC acid 1 mg tablet 08-12 00:00: 00 09-12 04:59 :00 No [id number] 1mg Take 1 tablet by mouth in the morning for 30 days. [facility] oxazepam (SERAX) capsule 15 mg [...] Thu08/13/22 at 0600, Routine [Order 2 End] [facility] thiamine (VITAMIN B1) tablet 100 mg 08-11 16:15: 00 Yes 100mg 100 mg, Oral, DAILY, First dose on Thu08/11/22 at 1015, Until Discontinu ed, Routine [facility] enoxaparin (LOVENOX) injection 40 mg 08-10 23:00: 00 Yes 40mg 40 mg, Subcutaneo us, DAILY, First dose on Thu08/10/22 at 1700, Until Discontinu ed, Routine [facility] NaCl 0.9% (NS) IV infusion 1,000 mL 08-10 15:00: 00 Yes 1000mL at 125 mL/hr, IV Infusion, CONTINUOUS , Starting on Thu08/10/22 at 0900, Until Discontinu ed, Routine [facility] foLIC acid (FOLATE) 5 mg in NaCl 0.9% (NS) piggyback 08-10 15:00: 00 08-11 16:14 :47 No 5mg IV Piggyback, DAILY, First dose on Thu08/10/22 at 0900, Until Discontinu ed, [address] [facility] thiamine (VITAMIN B1) 100 mg in NaCl 0.9% (NS) piggyback 08-10 15:00: 00 08-10 16:08 :00 No 100mg IV Piggyback, DAILY, 1 dose, First dose on Thu08/10/22 at 0900, 50 mL [facility] LORazepam (ATIVAN) injection 2 mg 08-10 14:52: 57 Yes 2mg 2 mg, Slow IV Push, Q4HPRN, Starting on Thu08/10/22 at 0852, Until Discontinu ed, Routine, Seizures, Agitation, Anxiety [facility] Sliding Scale Insulin-Reg ular + Fsbg Testing 08-10 13:30: 00 Yes Subcutaneo us, AC+HS, First dose on Thu08/10/22 at 0730, Until Discontinu ed, Routine [facility] oxazepam (SERAX) capsule 15 mg 08-10 12:08: 05 Yes 15mg 15 mg, Oral, Q4HPRN, Starting on Thu08/10/22 at 0608, Until Discontinu ed, Routine, Only while awake for DBP equal to or greater than 100, HR equal to or greater than 100. [facility] dextrose 10% (D10W) bolus infusion 250 mL [...] blood glucose is < 80 mg/dL, repeat.
[facility] glucagon (GLUCAGEN DIAGNOSTIC KIT) injection 1 mg 08-10 12:03: 20 Yes 1mg 1 mg, Intramuscu lar, PRN, Starting on Thu08/10/22 at 0603, Until Discontinu ed, JACIEL, Blood Glucose < or = 70 mg/dL and patient is NPO, unable to swallow or has mental changes. [facility] ondansetron (ZOFRAN (PF)) injection 4 mg 08-10 12:02: 53 Yes 4mg 4 mg, Slow IV Push, Q6HPRN, Starting on Thu08/10/22 at 0602, Until Discontinu ed, Routine, Nausea and Vomiting (N/V) [facility] ibuprofen (MOTRIN IB) tablet 200 mg 08-10 12:02: 45 Yes 200mg 200 mg, Oral, Q6HPRN, Starting on Thu08/10/22 at 0602, Until Discontinu ed, Routine, Pain (scale 1-3) [facility] NaCl 0.9% (NS) bolus infusion 1,000 mL 08-10 10:15: 00 08-10 13:00 :00 No 1000mL at 999 mL/hr, 1,000 mL, IV Infusion, ONCE, 1 dose, On Thu08/10/22 at 0415, STAT [facility] LORazepam (ATIVAN) injection 0.5 mg 08-10 09:15: 00 08-10 09:19 :00 No .5mg 0.5 mg, Slow IV Push, ONCE, 1 dose, On Thu08/10/22 at 0315, STAT [facility] LORazepam (ATIVAN) injection 1 mg 08-10 08:00: 00 08-10 07:05 :00 No 1mg 1 mg, Slow IV Push, ONCE NOW, 1 dose, On 08/10/22 at 0200, STAT [facility] thiamine (VITAMIN B1) injection 100 mg 08-10 06:45: 00 08-10 06:52 :00 No 100mg 100 mg, Intravenou s, ONCE, 1 dose, [facility] 08/10/22 at 0045[facility] 1 mg 08-10 05:15: 00 08-10 05:22 :00 No 1mg 1 mg, Slow IV Push, ONCE, 1 dose, On 08/09/22 at 2315, STAT [facility] ketorolac (TORADOL) injection 15 mg 2021-06 0-16 16:00: 00 04-06 14:50 :00 No 15mg 15 mg, Slow IV Push, ONCE, 1 dose, On 04/06/22 at 1100, [facility] ondansetron (ZOFRAN (PF)) injection [...] Last dose on Thu12/31/21 at 1330, Routine [facility] multivitami n tablet 12-31 00:00: 00 Yes [id number] 1{tbl} Take 1 tablet by mouth in the morning. [facility] thiamine 100 mg tablet 12-31 00:00: 00 Yes [id number] 100mg Take 1 tablet by mouth in the morning. [facility] aspirin 81 mg chewable tablet 12-31 00:00: 00 Yes [id number] 81mg Take 1 tablet by mouth in the morning. [facility] foLIC acid 1 mg tablet 12-31 00:00: 00 01-31 04:59 :00 No [id number] 1mg Take 1 tablet by mouth in the morning for 30 days. [facility] metFORMIN 500 mg tablet 12-30 00:00: 00 Yes [id number] 500mg Take 1 tablet by mouth in the morning and 1 tablet in the evening. Take with meals. [facility] aspirin chewable tablet 81 mg 12-29 14:00: 00 Yes 81mg 81 mg, Oral, DAILY, First dose on Thu12/29/21 at 0900, Until Discontinu ed, Routine [facility] sulfur hexafluorid e microsphr (LUMASON) injection 5 mL 12-29 13:45: 00 12-29 13:45 :00 No [id number] 5mL 5 mL, Intravenou s, ONCE, 1 dose, On 12/29/21 at 0845, Routine
hospitality team member approving Restricted medication : STEFANIE GORMAN [facility] enoxaparin (LOVENOX) injection 40 mg 12-29 13:00: 00 Yes 40mg 40 mg, Subcutaneo us, Q24H, First dose on Thu12/29/21 at 0800, Until Discontinu ed, Routine [facility] Sliding Scale Insulin - Lispro (HumaLOG) + Fsbg Testing 12-29 13:00: 00 Yes Subcutaneo us, TID MEALS+HS, First dose on Thu12/29/21 at 0800, Until Discontinu ed, Routine [facility] diazePAM (VALIUM) injection 10 mg 12-29 05:30: 00 12-29 04:40 :00 No 10mg 10 mg, Intravenou s, ONCE, 1 dose, On Thu12/29/21 at 0030, Routine [facility] diazePAM (VALIUM) injection 10 mg 12-29 04:15: 00 12-29 03:17 :00 No 10mg 10 mg, Intravenou s, ONCE, 1 dose, On 12/28/21 at 2315, Routine [facility] diazePAM (VALIUM) injection 5 mg 12-29 03:45: 01 Yes 5mg 5 mg, Intravenou s, QIDPRN, Starting on 12/28/21 at 2245, Until Discontinu ed, Routine, Seizures, Agitation [facility] foLIC acid (FOLATE) tablet 1 mg 12-29 03:45: 00 Yes 1mg 1 mg, Oral, DAILY, First dose on 12/28/21 at 2245, Until Discontinu ed, Routine [facility] thiamine (VITAMIN B1) tablet 100 mg 12-29 03:45: 00 Yes 100mg 100 mg, Oral, DAILY, First dose (after last modificati on) on 12/28/21 at 2245, Until Discontinu ed, Routine [facility] glucagon (GLUCAGEN DIAGNOSTIC KIT) injection 1 mg 12-29 03:42: 19 Yes 1mg 1 mg, Intramuscu lar, PRN, Starting on 12/28/21 at 2242, Until Discontinu ed, JACIEL, Blood Glucose < or = 70 mg/dL and patient is unable to swallow or has mental changes. [facility] dextrose 10% (D10W) bolus infusion [...] blood glucose is < 80 mg/dL, repeat.
[facility] LORazepam (ATIVAN) injection 1 mg 12-29 03:30: 00 12-29 02:32 :00 No 1mg 1 mg, Intravenou s, ONCE, 1 dose, On 12/28/21 at 2230, Routine
Is the medication being used for status epilepticu s? No [facility] oxazepam (SERAX) capsule 15 mg 12-29 00:28: 20 Yes 15mg 15 mg, Oral, Q4HPRN, Starting on 12/28/21 at 1928, Until Discontinu ed, Routine, Only while awake for DBP equal to or greater than 100, HR equal to or greater than 100. [facility] ondansetron (ZOFRAN (PF)) injection 4 mg 12-29 00:23: 47 Yes 4mg 4 mg, Slow IV Push, Q6HPRN, Starting on 12/28/21 at 1923, Until Discontinu ed, Routine, Nausea and Vomiting (N/V) [facility] acetaminoph en (TYLENOL) tablet 650 mg 12-29 00:23: 37 Yes 650mg 650 mg, Oral, Q6HPRN, Starting on 12/28/21 at 1923, Until Discontinu ed, Routine, Pain (scale 1-3), Temp > 38.5 C [facility] chlordiazeP OXIDE (LIBRIUM) capsule 25 mg 12-28 23:15: 00 12-28 23:24 :00 No 25mg 25 mg, Oral, ONCE, 1 dose, On 12/28/21 at 1815, [facility] NaCl 0.9% (NS) bolus infusion 2,000 mL 12-28 22:45: 00 12-28 23:18 :00 No 2000mL at 999 mL/hr, 2,000 mL, IV Infusion, ONCE, 1 dose, On 12/28/21 at 1745, JACIEL [facility] LORazepam (ATIVAN) injection 1 mg 12-28 20:45: 00 12-28 20:49 :00 No 1mg 1 mg, Slow IV Push, ONCE, 1 dose, On 12/28/21 at 1545, STAT
Is the medication being used for status epilepticu s? No [facility] acetaminoph en (TYLENOL) 500 mg tablet 10-06 00:00: 00 Yes 500mg Take 1 Tab by mouth every 6 (six) hours as needed for Pain. [facility] Vital Signs Vital Name Observation Time Observation Value Comments S ource Systolic blood pressure 2023-12-13 05:16:00 125 mm[Hg] [facility] Diastolic blood pressure 2023-12-13 05:16:00 90 mm[Hg] [facility] Heart rate 2023-12-13 05:16:00 77 /min [facility] Body temperature 2023-12-13 05:16:00 36.06 Theresa [facility] Respiratory rate 2023-12-13 05:16:00 16 /min [facility] Oxygen saturation in Arterial blood by Pulse oximetry 2023-12-13 05:16:00 98 /min [facility] Body height 2023-12-13 01:35:00 157.5 cm [facility] Body weight 2023-12-13 01:35:00 65.772 [facility] BMI 2023-12-13 01:35:00 26.52 kg/m2 [facility] Systolic blood pressure 2023-11-05 21:00:00 106 mm[Hg] [facility] Diastolic blood pressure 2023-11-05 21:00:00 70 mm[Hg] [facility] Heart rate 2023-11-05 21:00:00 74 /min [facility] Body temperature 2023-11-05 21:00:00 36.5 Theresa [facility] Respiratory rate 2023-11-05 21:00:00 21 /min [facility] Oxygen saturation in Arterial blood by Pulse oximetry 2023-11-05 21:00:00 98 /min [facility] Body height 2023-11-05 19:59:00 160 cm [facility] Body weight 2023-11-05 19:59:00 63.504 kg [facility] BMI 2023-11-05 19:59:00 24.80 kg/m2 [facility] Systolic blood pressure 2022-11-11 20:31:31 116 mm[Hg] [facility] Diastolic blood pressure 2022-11-11 20:31:31 77 mm[Hg] [facility] Heart rate 2022-11-11 20:31:31 84 /min [facility] Respiratory rate 2022-11-11 20:31:31 12 /min [facility] Oxygen saturation in Arterial blood by Pulse oximetry 2022-11-11 20:31:31 90 /min [facility] Body temperature 2022-11-11 18:49:00 37.11 Theresa [facility] Body height 2022-11-11 18:49:00 160 cm [facility] Body weight 2022-11-11 18:49:00 68.04 kg [facility] BMI 2022-11-11 18:49:00 26.57 kg/m2 [facility] Body temperature 2022-08-11 14:00:00 36.5 Theresa [facility] Systolic blood pressure 2022-08-11 10:00:00 116 mm[Hg] [facility] Diastolic blood pressure 2022-08-11 10:00:00 71 mm[Hg] [facility] Heart rate 2022-08-11 10:00:00 70 /[facility] Respiratory rate 2022-08-11 10:00:00 16 /min [facility] Body weight 2022-08-11 10:00:00 65.499 kg [facility] BMI 2022-08-11 10:00:00 25.58 kg/m2 [facility] Oxygen saturation in Arterial blood by Pulse oximetry 2022-08-11 10:00:00 100 /min [facility] Body height 2022-08-10 22:12:00 160 cm [facility] Systolic blood pressure 2022-04-06 16:00:00 125 mm[Hg] [facility] Diastolic blood pressure 2022-04-06 16:00:00 75 mm[Hg] [facility] Heart rate 2022-04-06 16:00:00 87 /min [facility] Respiratory rate 2022-04-06 16:00:00 22 /min [facility] Oxygen saturation in Arterial blood by Pulse oximetry 2022-04-06 16:00:00 98 /min [facility] Body temperature 2022-04-06 14:41:00 37 Theresa [facility] Body height 2022-04-06 14:41:00 160 cm [facility] Body weight 2022-04-06 14:41:00 63.504 kg [facility] BMI 2022-04-06 14:41:00 24.80 kg/m2 [facility] Systolic blood pressure 2022-01-20 02:27:00 121 mm[Hg] [facility] Diastolic blood pressure 2022-01-20 02:27:00 75 mm[Hg] [facility] Heart rate 2022-01-20 02:27:00 79 /min [facility] Respiratory rate 2022-01-20 02:27:00 12 /min [facility] Oxygen saturation in Arterial blood by Pulse oximetry 2022-01-20 02:27:00 98 /min [facility] Body temperature 2022-01-19 22:19:00 36.44 Theresa [facility] Body weight 2022-01-19 22:19:00 60.328 kg [facility] BMI 2022-01-19 22:19:00 23.56 kg/m2 [facility] Systolic blood pressure 2021-12-30 20:52:00 134 mm[Hg] [facility] Diastolic blood pressure 2021-12-30 20:52:00 76 mm[Hg] [facility] Heart rate 2021-12-30 20:52:00 67 /min [facility] Body temperature 2021-12-30 20:26:00 36.67 Theresa [facility] Oxygen saturation in Arterial blood by Pulse oximetry 2021-12-30 20:26:00 99 /min [place] [facility] Respiratory rate 2021-12-30 16:21:00 18 /min [facility] Body weight 2021-12-30 08:27:00 60.464 kg [facility] BMI 2021-12-30 08:27:00 23.61 kg/m2 [facility] Body height 2021-12-29 01:29:00 160 cm [facility] Procedures Procedure Date / Time Performed Performing Clinician Source TROPONIN I 2023-12-13 03:32:00 Rafael Byrd [facility] XR CHEST 1 VW 2023-12-13 02:18:14 Rafael Byrd [facility] LIPASE 2023-12-13 02:07:00 Rafael Byrd [facility] TROPONIN I 2023-12-13 02:07:00 Rafael Byrd [facility] COMP. METABOLIC PANEL ([id number]) 2023-12-13 02:07:00 Rafael Byrd [facility] CBC WITH DIFF 2023-12-13 02:07:00 Rafael Byrd [facility] XR CHEST 1 VW 2023-11-05 20:09:00 Sulaiman Hawkins [facility] LIPASE 2023-11-05 20:01:00 Sulaiman Hawkins [facility] MAGNESIUM 2023-11-05 20:01:00 Sulaiman Hawkins [facility] TROPONIN I 2023-11-05 20:01:00 [facility] COMP. METABOLIC PANEL ([id number]) 2023-11-05 20:01:00 Sulaiman Hawkins [facility] CBC WITH DIFF 2023-11-05 20:01:00 Sulaiman [facility] N-TERMINAL PRO-BNP 2023-11-05 20:01:00 Sulaiman Hawkins [facility] MAGNESIUM 2022-11-11 19:05:00 Jessica [facility] BASIC METABOLIC PANEL (NA, K, CL, CO2, GLUCOSE, BUN, CREATININE, CA) 2022-11-11 19:05[facility] 2022-11-11 19:05:00 Jessica [facility] CBC WITH DIFF 2022-11-11 19:05:00 Hemant Klein [facility] POCT GLUCOSE (AUTOMATED) 2022-08-11 13:36:00 Arvind Prado [facility] PHOSPHORUS 2022-08-11 10:35:00 Eve [facility] MAGNESIUM 2022-08-11 10:35:00 Eve [facility] AMMONIA, PLASMA 2022-08-11 10:35:00 Jessica Prado [facility] COMP. METABOLIC PANEL ([id number]) 2022-08-11 10:35:00 Eve [facility] CBC WITH DIFF 2022-08-11 10:35:00 Oswald Murphy [facility] POCT GLUCOSE (AUTOMATED) 2022-08-11 02:15:00 Arvind Prado [facility] POCT GLUCOSE (AUTOMATED) 2022-08-10 23:10:00 Arvind Prado [facility] POCT GLUCOSE (AUTOMATED) 2022-08-10 18:20:00 Arvind Prado [facility] POCT GLUCOSE (AUTOMATED) 2022-08-10 14:11:00 Arvind Prado [facility] POCT GLUCOSE (AUTOMATED) 2022-08-10 10:59:00 Gopal Driscoll [facility] COVID-19 (ID NOW RAPID TESTING) 2022-08-10 07:17:00 Rayray Driscoll [facility] LAB ONLY COVID INTERPRETATION 2022-08-10 07:17:00 Rayray Driscoll [facility] HB ECG ROUTINE & RHYTHM STRIP 2022-08-10 06:03:48 Rayray Driscoll [facility] URINALYSIS 2022-08-10 05:46:00 [facility] URINE DRUG (IMMUNOASSAY) - COMPREHENSIVE DRUG SCREEN W/O REFLEX 2022-08-10 05:45:00 Rayray Driscoll [facility] CREATINE KINASE 2022-08-10 05:16:00 [facility]-10 05:16:00 [facility] MAGNESIUM 2022-08-10 05:16:00 Rayray Driscoll [facility] TROPONIN I 2022-08-10 05:16:00 Rayray Driscoll [facility] COMP. METABOLIC PANEL ([id number]) 2022-08-10 05:16:00 Rayray Driscoll [facility] ETHANOL 2022-08-10 05:16:00 Rayray Driscoll [facility] CBC WITH DIFF 2022-08-10 05:16:00 Rayray Driscoll [facility] N-TERMINAL PRO-BNP 2022-08-10 05:16:00 Rayray Driscoll [facility] CRITICAL CARE 2022-08-10 04:52:00 Rayray Driscoll [facility] XR CHEST 1 VW 2022-04-06 14:51:[address] [facility] LIPASE 2022-04-06 14:42:00 Diya Chowdhury [facility] TROPONIN I 2022-04-06 14:42:00 Diya Chowdhury [facility] COMP. METABOLIC PANEL ([id number]) 2022-04-06 14:42:00 Diya Chowdhury [facility] CBC WITH DIFF 2022-04-06 14:42:[address] [facility] PROTHROMBIN TIME / INR 2022-04-06 14:42:00 Diya Chowdhury [facility] ACTIVATED PARTIAL THRMPLAS NELDA 2022-04-06 14:42:00 Luciana [facility] LACTIC ACID WHOLE BLOOD 2022-01-20 00:22:00 Leticia Baldwin [facility] URINE DRUG (IMMUNOASSAY) - COMPREHENSIVE DRUG SCREEN 2022-01-19 23:10:00 Leticia Baldwin [facility] URINALYSIS 2022-01-19 23:10:00 Leticia Baldwin [facility] TROPONIN I 2022-01-19 23:00:00 [facility] COMP. METABOLIC PANEL ([id number]) 2022-01-19 23:00:00 Leticia Baldwin [facility] LITHIUM 2022-01-19 23:00:00 [facility] ETHANOL 2022-01-19 23:00:00 [facility] CBC WITH DIFF 2022-01-19 23:00:00 Leticia [facility] COVID-19 (ID NOW RAPID TESTING) 2022-01-19 23:00:00 Leticia Baldwin [facility] CT HEAD WO CONTRAST 2022-01-19 22:49:00 Leticia Baldwin [facility] XR CHEST 1 VW 2022-01-19 22:41:00 Leticia [facility] [facility] POCT GLUCOSE (AUTOMATED) 2022-01-19 22:25:00 Leticia Baldwin [facility] POCT GLUCOSE (AUTOMATED) 2021-12-30 21:55:00 Arvind Prado [facility] POCT GLUCOSE (AUTOMATED) 2021-12-30 16:21:00 Arvind Prado [facility] POCT GLUCOSE (AUTOMATED) 2021-12-30 12:30:00 Arvind Prado [facility] HEPATIC FUNCTION PANEL (11892) (ALB,T.PRO,BILI T,BU/BC,ALT,AST,ALK PHOS) 2021-12-30 09:28:00 Maira Gaitan [facility] POCT GLUCOSE (AUTOMATED) 2021-12-30 02:11:00 Arvind Prado [facility] POCT GLUCOSE (AUTOMATED) 2021-12-29 21:41:00 Arvind Prado [facility] POCT GLUCOSE (AUTOMATED) 2021-12-29 16:37:00 Arvind Prado [facility] TRANSTHORACIC ECHO (TTE) COMPLETE W/ CONTRAST 2021-12-29 13:05:00 Jessica Prado [facility] POCT GLUCOSE (AUTOMATED) 2021-12-29 12:41:00 Arvind Prado [facility] TROPONIN I 2021-12-29 09:42:00 Eve [facility] TROPONIN I 2021-12-29 04:55:[address] [facility] [address] HEAD WO CONTRAST 2021-12-28 21:18:22 Poppy Renteria [facility] AMMONIA, PLASMA 2021-12-28 21:00:[address] [facility] COVID-19 (ID NOW RAPID TESTING) 2021-12-28 20:42:00 Pia Renteria [facility] LAB ONLY COVID INTERPRETATION 2021-12-28 20:42:00 Pia Renteria [facility] URINE DRUG (IMMUNOASSAY) - COMPREHENSIVE DRUG SCREEN W/O REFLEX 2021-12-28 20:42:00 Pia Renteria [facility] URINALYSIS 2021-12-28 20:40:00 Pia Renteria [facility] N-TERMINAL PRO-BNP 2021-12-28 20:40:00 Corina Renteria [facility] TROPONIN I 2021-12-28 20:40:00 Pia Renteria [facility] THYROID STIMULATING HORMONE 2021-12-28 20:40:00 Jessica Prado [facility] COMP. METABOLIC PANEL (93824) 2021-12-28 20:40:00 Pia Renteria [facility] LIPID PANEL (43169)(TOTAL CHOLESTEROL, TRIGLYCERIDES, HDL) 2021-12-28 20:40:00 Demetrius Langford [facility] ETHANOL 2021-12-28 20:40:00 Demetrius Langford [facility] CBC WITH DIFF 2021-12-28 20:40:00 Pia Renteria [facility] GLYCOSYLATED HEMOGLOBIN (A1C) 2021-12-28 20:40:00 Jessica Prado [facility] PROTHROMBIN TIME / INR 2021-12-28 20:40:00 Lesly Renteria [facility] XR CHEST 1 VW 2021-12-28 20:16:00 Pia Renteria [facility] HB ECG ROUTINE & RHYTHM STRIP 2021-12-28 20:04:59 Pia Renteria [facility] Encounters Start Date/Time End Date/Time Encounter Type Admission Type Attending [facility] Care Facility Care Department Encounter ID Source 2021-09-17 16:45:00 Inpatient [facility] [id number] [facility] 2020-06-06 16:07:00 Inpatient [facility] [id number] [facility] 2020-06-06 06:20:00 Inpatient [facility] [id number] [facility] 2020-06-05 19:35:00 Inpatient [facility] [id number] [facility] 2020-05-23 19:53:00 Inpatient [facility] [id number] [facility] 2020-05-23 19:53:00 Inpatient [facility] [id number] [facility] 2023-12-12 20:44:00 2023-12-13 00:22:00 Emergency Rafael Byrd [facility] 1.2.840.114 350.1.13.10 4.2.7.2.686 [id number] [facility] 2023-11-05 14:54:00 2023-11-05 16:27:00 Emergency Sulaiman Hawkins [facility] 1.2.840.114 350.1.13.10 4.2.7.2.686 [id number] [facility] 2022-11-11 13:50:00 2022-11-11 16:07:00 Emergency X HEMANT KLEIN [facility] ERT [id number] [facility] 2022-11-11 13:50:00 2022-11-11 16:07:00 Emergency Hemant Klein [facility] 1.2.840.114 350.1.13.10 4.2.7.2.686 [id number] [facility] 2022-10-14 20:59:00 2022-10-14 20:59:00 Emergency [facility] [id number] [facility] 2022-10-14 20:59:00 2022-10-14 20:59:00 Emergency Emergency Pan Pinto [facility] [id number] [facility] 2022-08-09 22:59:00 2022-08-11 13:02:00 Outpatient X JESSICA PRADO [facility] [id number] [facility] 2022-08-09 22:59:00 2022-08-11 13:02:00 Emergency Mukund DricsollJessica Avilez [facility] 1.2.840.114 350.1.13.10 4.2.7.2.686 [id number] [facility] 2022-04-06 09:38:00 2022-04-06 11:42:00 Emergency X DIYA CHOWDHURY [facility] ERT [id number] [facility] 2022-04-06 09:38:00 2022-04-06 11:42:00 Emergency Toddjose l Diya [facility] 1.2.840.114 350.1.13.10 4.2.7.2.686 [id number] [facility] 2022-03-07 12:38:00 2022-03-07 12:38:00 Emergency [facility] [id number] [facility] 2022-03-07 12:38:00 2022-03-07 12:38:00 Emergency Emergency Fidel Cuellar [facility] [id number] [facility] 2022-01-19 17:18:00 2022-01-19 22:00:00 Emergency X DIRK YARBROUGH [facility] ERT [id number] [facility] 2022-01-19 17:18:00 2022-01-19 22:00:00 Emergency Nicolasa Leticia Dirk Sutton [facility] 1.2.840.114 350.1.13.10 4.2.7.2.686 [id number] [facility] 2021-12-31 00:00:00 2021-12-31 00:00:00 Transition of Care Bandar Faye MIKMarlon MASSIEL NAVARRO 1.2.840.114 350.1.13.10 4.2.7.2.686 [id number] [facility] 2021-12-28 14:53:00 2021-12-30 17:42:00 Inpatient X JESSICA PRADO [facility] [id number] [facility] 2021-12-28 14:53:00 2021-12-30 17:42:00 Hospital Encounter Pia Renteria Jelani [facility] 1.2.840.114 350.1.13.10 4.2.7.2.686 [id number] [facility] 2021-09-17 16:47:00 2021-09-17 16:47:00 Emergency [facility] [id number] [facility] 2020-06-06 16:07:00 2020-06-06 16:07:00 Emergency [facility] [id number] [facility] Results Test Description Test Time Test Comments Results Result Co mments Source [facility] [id number] 02:57:27* Test Item Value Reference Range Interpretation Comme nts TROPONIN I (test code = 2802433220) 0.003 ng/mL <=0.034 JUAN ALBERTO (test code = JUANA LBERTO) Reference (Normal) Range (defined by the 99th [...] of biotin. Lab Interpretation (test code = 42775-4) Normal [facility]. METABOLIC PANEL (23274)2023-12-13 02:46:25* Test Item Value Reference Range Interpretation Comme nts NA (test code = 5368326324) 144 mmol/L 135-145 K (test code = 1262533972) 3.9 mmol/L 3.5-5.0 CL (test code = 1795906521) 110 mmol/L 98-108 H CO2 TOTAL (test code = 4069014282) 20 mmol/L 23-31 L AGAP (test code = 4137281958) 14 2-16 BUN (test code = 1567709159) 13 mg/dL 7-23 GLUCOSE (test code = 9024371175) 163 mg/dL 70-110 H CREATININE (test code = 2160-0) 0.63 mg/dL 0.60-1.25 TOTAL BILI (test code = 2919707497) 0.3 mg/dL 0.1-1.1 CALCIUM (test code = 2498388879) 9.0 mg/dL 8.6-10.6 T PROTEIN (test code = 5673490084) 7.2 g/dL 6.3-8.2 ALBUMIN (test code = 5754648138) 4.1 g/dL 3.5-5.0 ALK PHOS (test code = 3879288682) 129 U/L 34-122 H ALTv (test code = 1742-6) 15 U/L 5-50 AST(SGOT) (test code = 7401525545) 34 U/L 13-40 eGFR (test code = 81430-4) 113.7 mL/min/1.73m2 CKD-EPI eGFR (2020). Assuming creatinine has been stable day-to-day for at least three months, the eGFR indicates Category G1 (>= 90 mL/min/1.73 m2) Lab Interpretation (test code = 67277-2) [facility]normal [facility], [id number] 02:45:25* Test Item Value Reference Range Interpretation Comme nts LIPASE (test code = 5125494654) 47 U/L 0-220 Lab Interpretation (test cod e = 38460-1) [facility] CHE[facility] 1 [id number] 02:40:35History: chest pain . Exam: XR CHEST 1 VW Date: 12/12/2023 9:15 PM Ordering provider: RAFAEL BYRD Technical quality: Adequate Comparison: 11/05/2023. Findings: Frontal view of the chest is obtained. The cardiac silhouette is normal in size. No evidence of infiltrate,pleural effusion, CHF, or pneumothorax.[facility]CBC WITH [id number] 02:33:48* Test Item Value Reference Range Interpretation [...] 33.2 g/dL 31.2-35.0 RDW-SD (test code = 84996-6) 54.4 fL 38.5-51.6 H RDW-CV (test code = 788-0) 15.9 % 12.1-15.4 H PLT (test code = 777-3) 318 150-328 MPV (test code = 83557-4) 8.5 fL 9.8-13.0 L NRBC/100 WBC (test code = 2018066977) 0.0 0.0-10.0 NRBC x10^3 (test code = 7877917189) See_Comment [Automated messa ge] The system which generated this result transmitted reference range: 10*3/?L. The reference range was not used to interpret this result as normal/abnormal. GRAN MAT (NEUT) % (test code = 770-8) 50.1 % IMM GRAN % (test code = 8976323674) 0.40 % LYMPH % (test code = 736-9) 37.6 % MONO % (test code = 5905-5) 6.8 % EOS % (test code = 713-8) 4.1 % BASO % (test code = 706-2) 1.0 % GRAN MAT x10^3(ANC) (test code = 3231366129) 3.66 10*3/uL 1.99-6.95 IMM GRAN x10^3 (test code = 4801305818) 0.03 10*3/uL 0.00-0.06 LYMPH x10^3 (test code = 731-0) 2.75 10*3/uL 1.09-3.23 MONO x10^3 (test code = 742-7) 0.50 10*3/uL 0.36-1.02 EOS x10^3 (test code = 711-2) 0.30 10*3/uL 0.06-0.53 BASO x10^3 (test code = 704-7) 0.07 10*3/uL 0.01-0.09 Lab Interpretation (test code = 77250-8) [facility]normal [facility] 1 [id number] 20:15:30HISTORY: Chest pain. TECHNIQUE: Portable AP view of the chest is obtained. Comparison is beingmade with 04/06/2022 study. FINDINGS: No acute pneumonia. No pneumothorax or pleural effusion orpulmonarycongestion detected. Cardiac size is within normal limits.Prominent osteophytes are seen along right left vertebral margins at middleand lower thoracic spines. CONCLUSIONS: No signs of acute cardiopul monary disease.[facility] CenterETHANOL2023-05-23 19:45:56 ALCOHOL<10mg/dL11/11/2022 2:45 PM [facility]<10 Ngieqwbq12-487 Toxic>100 Depression of HUMAN RESOURCES LEADER>400 [facility] (NA, K, CL, CO2, GLUCOSE, BUN, CREATININE, CA)2022-11-11 19:41:47* Test Item Value Reference Range Interpretation Comme nts NA (test code = 1804975098) 138 mmol/L 135-145 K (test code = 9192045154) 4.8 mmol/L 3.5-5.0 CL (test code = 0819227150) 103 mmol/L 98-108 CO2 TOTAL (test code = 7857770252) 26 mmol/L 23-31 AGAP (test code = 4401487143) 9 2-16 BUN (test code = 8877567215) 17 mg/dL 7-23 GLUCOSE (test code = 6192927506) 219 mg/dL 70-110 H CREATININE (test code = 3713994305) 0.72 mg/dL 0.60-1.25 CALCIUM (test code = 0405168578) 10.0 mg/dL 8.6-10.6 eGFR (test code = 3514004057) 114.6 mL/min/1.73m2 JUAN ALBERTO (test code = [...] imaging tests). Lab Interpretation (test code = 82434-0) Abnormal [facility] CenterMAGN[facility]IUM2023-05-23 19:41:47* Test Item Value Reference Range Interpretation Comme nts MAGNESIUM (test code = 3291471986) 1.8 mg/dL 1.7-2.4 Lab Interpretation (test cod e = 67970-5) Normal [facility] CenterCB WITH [id number] 19:25:26* Test Item Value Reference Range Interpretation Comme nts WBC (test code = 6690-2) 6.82 See_Comment [Automated [employer]] The system which generated this result transmitted reference range: 4.20 - 10.70 10*3/?L. The reference range was not used to interpret this result as normal/abnormal. RBC (test code = 789-8) 4.98 See_Comment [Automated [employer]] The system which generated this result transmitted [...] 33.9 g/dL 31.2-35.0 RDW-SD (test code = 37251-9) 46.0 fL 38.5-51.6 RDW-CV (test code = 788-0) 13.5 % 12.1-15.4 PLT (test code = 777-3) 237 See_Comment [Automated [employer]] The system which generated this result transmitted reference range: 150 - 328 10*3/?L. The reference range was not used to interpret this result as normal/abnormal. MPV (test code = 19871-9) 8.9 fL 9.8-13.0 L NRBC/100 WBC (test code = 6844140904) 0.0 See_Comment [Automated me ssage] The system which generated this result transmitted reference range: 0.0 - 10.0 /100 WBCs. The reference range was not used to interpret this result as normal/abnormal. NRBC x10^3 (test code = 5465876538) See_Comment [Automated messa ge] The system which generated this result transmitted reference range: 10*3/?L. The reference range was not used to interpret this result as normal/abnormal. GRAN MAT (NEUT) % (test code = 770-8) 71.2 % IMM GRAN % (test code = 2221014023) 0.30 % LYMPH % (test code = 736-9) 18.2 % MONO % (test code = 5905-5) 8.4 % EOS % (test code = 713-8) 1.0 % BASO % (test code = 706-2) 0.9 % GRAN MAT x10^3(ANC) (test code = 7740042914) 4.86 10*3/uL 1.99-6.95 IMM GRAN x10^3 (test code = 9581598497) 0.00-0.06 LYMPH x10^3 (test code = 731-0) 1.24 10*3/uL 1.09-3.23 MONO x10^3 (test code = 742-7) 0.57 10*3/uL 0.36-1.02 EOS x10^3 (test code = 711-2) 0.07 10*3/uL 0.06-0.53 BASO x10^3 (test code = 704-7) 0.06 10*3/uL 0.01-0.09 Lab Interpretation (test code = 05230-7) Abnormal [facility], Urinalysis Rflx Cult/[id number] 22:20:00* Test Item Value Reference Range Interpretation Comme nts Color,Urine (test code = UCOL) Yellow Yellow Clarity,Urine (test code = UCLAR) Clear Clear Ph, Urine (test code = UPH) 7.0 5.0-9.0 N Specific [place],Urine (test code = USG) 1.020 1.005-1.030 N [...] code = ULEU) Negative mg/dL Negative Drug Screen,[id number] 22:20:00* Test Item Value Reference Range Interpretation [...] UPROP) Negative Negative Complete Blood Count Auto [id number] 21:21:00* Test Item Value Reference Range Interpretation [...] code = NRBCP) 0 % Comprehensive Metabolic [id number] 21:21:00* Test Item Value Reference Range Interpretation [...] a race coefficient. Additional information canbe found at:06-01-1842_haq_ egfr_summary_flyer 5.pdf ([email or web address]) [Automated message] The system [...] = ALP) 134 U/L 46-116 H Ethanol Whjwl4352-14-15 21:21:00* Test Item Value Reference Range Interpretation Comme nts Ethanol (test code = ETOH) < 3 mg/dL The pharmacologi yudy response to blood alcohol levels mayvary from individual to individual. The fatal concentrationhas been reported to be >400mg/dL. POCT GLUCOSE (AUTOMATED)2022-08-11 13:40:35* Test Item Value Reference Range Interpretation Comme nts POCT GLU (test code = 0218809084) 121 mg/dL 70-110 H Lab Interpretation (test cod e = 17740-6) Abnormal [facility] GLUCOSE (AUTOMATED)2022-08-11 02:18:58* Test Item Value Reference Range Interpretation Comme nts POCT GLU (test code = 8086371341) 183 mg/dL 70-110 H Lab Interpretation (test cod e = 28096-5) Abnormal [facility] GLUCOSE (AUTOMATED)2022-08-10 23:16:11* Test Item Value Reference Range Interpretation Comme nts POCT GLU (test code = 2138389217) 176 mg/dL 70-110 H Lab Interpretation (test cod e = 09834-9) Abnormal [facility] GLUCOSE (AUTOMATED)2022-08-10 18:22:51* Test Item Value Reference Range Interpretation Comme nts POCT GLU (test code = 8744092956) 165 mg/dL 70-110 H Lab Interpretation (test cod e = 89771-7) Abnormal [facility] GLUCOSE (AUTOMATED)2022-08-10 14:18:05* Test Item Value Reference Range Interpretation Comme nts POCT GLU (test code = 7872611432) 138 mg/dL 70-110 H Lab Interpretation (test cod e = 35969-0) Abnormal [facility] GLUCOSE (AUTOMATED)2022-08-10 11:01:21* Test Item Value Reference Range Interpretation Comme nts POCT GLU (test code = 3209664046) 143 mg/dL 70-110 H Lab Interpretation (test cod e = 42725-5) Abnormal [facility] CenterTROP[facility] [id number] 06:51:18* Test Item Value Reference Range Interpretation Comme nts TROPONIN I (test code = 9332128770) 0.008 ng/mL <=0.034 JUAN ALBERTO (test code [...] of biotin. Lab Interpretation (test code = 85361-7) Normal [facility] CenterN-TERMINAL HXV-[id number] 06:47:37* Test Item Value Reference Range Interpretation Comme nts NT-proBNP (test code = 5356887175) 37 pg/mL <=125 JUAN ALBERTO (test code = JUAN ALBERTO) Biotin has been reported to cause a negative bias, interpret results relative to patient's use of biotin. Lab Interpretation (test code = 36227-2) Normal [facility] CenterETHANOL2023-02-19 06:25:52 ALCOHOL<10mg/dL08/10/2022 12:25 AM [facility]<10 Xkhocrap68-499 Toxic>100 Depression of HUMAN RESOURCES LEADER>400 Fatalities ReportedBaylor [facility] Medical CenterCOM. METABOLIC PANEL (45440)2022-08-10 06:19:15* Test Item Value Reference Range Interpretation Comme nts NA (test code = 9025826942) 135 mmol/L 135-145 K (test code = 6338244562) 4.3 mmol/L 3.5-5.0 CL (test code = 0194904220) 98 mmol/L 98-108 CO2 TOTAL (test code = 9788342521) 30 mmol/L 23-31 AGAP (test code = 5968942111) 7 2-16 BUN (test code = 8645055742) 11 mg/dL 7-23 GLUCOSE (test code = 8375271605) 153 mg/dL 70-110 H CREATININE (test code = 5339183641) 0.77 mg/dL 0.60-1.25 TOTAL BILI (test code = 4691100342) 0.9 mg/dL 0.1-1.1 CALCIUM (test code = 2745136324) 10.0 mg/dL 8.6-10.6 T PROTEIN (test code = 2972951948) 7.7 g/dL 6.3-8.2 ALBUMIN (test code = 9969832597) 4.6 g/dL 3.5-5.0 ALK PHOS (test code = 9499621193) 92 U/L 34-122 ALTv (test code = 1742-6) 35 U/L 5-50 AST(SGOT) (test code = 8987286141) 42 U/L 13-40 H eGFR (test code = 7573398721) 106.1 mL/min/1.73m2 JUAN ALBERTO (test code = [...] imaging tests). Lab Interpretation (test code = 68968-6) Abnormal [facility]MAG[facility]UM2023-02-19 06:19:15* Test Item Value Reference Range Interpretation Comme nts MAGNESIUM (test code = 7466130545) 2.2 mg/dL 1.7-2.4 Lab Interpretation (test cod e = 29391-7) Normal [facility] CenterLIPASE2023-02-19 06:18:55* Test Item Value Reference Range Interpretation Comme nts LIPASE (test code = 3451122983) 18 U/L 0-220 Lab Interpretation (test cod e = 35831-7) Normal [facility] CenterCREATINE [id number] 06:18:55* Test Item Value Reference Range Interpretation Comme nts CK (test code = 1822601069) 174 U/L 33-194 Lab Interpretation (test cod e = 28474-0) Normal [facility]CBC WITH [id number] 06:02:35* Test Item Value Reference Range Interpretation [...] 32.4 g/dL 31.2-35.0 RDW-SD (test code = 24842-4) 50.2 fL 38.5-51.6 RDW-CV (test code = 788-0) 14.3 % 12.1-15.4 PLT (test code = 777-3) 241 See_Comment [Automated messa ge] The system which generated this result transmitted reference range: 150 - 328 10*3/?L. The reference range was not used to interpret this result as normal/abnormal. MPV (test code = 51365-2) 8.6 fL 9.8-13.0 L NRBC/100 WBC (test code = 5274044187) 0.0 See_Comment [Automated me ssage] The system which generated this result transmitted reference range: 0.0 - 10.0 /100 WBCs. The reference range was not used to interpret this result as normal/abnormal. NRBC x10^3 (test code = 7268699934) See_Comment [Automated messa ge] The system which generated this result transmitted reference range: 10*3/?L. The reference range was not used to interpret this result as normal/abnormal. GRAN MAT (NEUT) % (test code = 770-8) 63.9 % IMM GRAN % (test code = 4347038339) 0.50 % LYMPH % (test code = 736-9) 17.6 % MONO % (test code = 5905-5) 16.5 % EOS % (test code = 713-8) 0.7 % BASO % (test code = 706-2) 0.8 % GRAN MAT x10^3(ANC) (test code = 9549718793) 4.79 10*3/uL 1.99-6.95 IMM GRAN x10^3 (test code = 8617008634) 0.04 10*3/uL 0.00-0.06 LYMPH x10^3 (test code = 731-0) 1.32 10*3/uL 1.09-3.23 MONO x10^3 (test code = 742-7) 1.24 10*3/uL 0.36-1.02 H EOS x10^3 (test code = 711-2) 0.05 10*3/uL 0.06-0.53 L BASO x10^3 (test code = 704-7) 0.06 10*3/uL 0.01-0.09 Lab Interpretation (test code = 24969-0) Abnormal [facility] [id number] 15:15:32* Test Item Value Reference Range Interpretation Comments TROPONIN I (test code = 6214494581) 0.007 ng/mL See_Comment [Automated message] The system [...] of biotin. Lab Interpretation (test code = 14985-4) Normal [facility] CenteraPTT2022-10-16 15:08:29* Test Item Value Reference Range Interpretation Comme [facility] AP[facility] Patient (test code = 3173-2) See_Comment [Automated message] The system which generated this result transmitted reference range: 23 - 38 Seconds. The reference range was not used to interpret this result as normal/abnormal. JUAN ALBERTO (test code = JUAN ALBERTO) The [facility] patient population mean normal value for aPTT is 30 seconds. Lab Interpretation (test code = 83067-8) Normal [facility] CenterPROTHROMBIN TIME / [id number] 15:06:28* Test Item Value Reference Range Interpretation [...] the indications. Lab Interpretation (test code = 77783-8) Normal [facility] CenterCOMP. METABOLIC PANEL (14259)2022-04-06 15:03:31* Test Item Value Reference Range Interpretation Comme [facility] NA (test code = 2869372746) 136 mmol/L 135-145 K (test code = 4025619393) 5.0 mmol/L 3.5-5 CL (test code = 0452223882) 104 mmol/L 98-108 CO2 TOTAL (test code = 1456532946) 21 mmol/L 23-31 L AGAP (test code = 9257165646) 2-16 BUN (test code = 5492582465) 11 mg/dL 7-23 GLUCOSE (test code = 2765788269) 162 mg/dL 70-110 H CREATININE (test code = 2152316174) 0.52 mg/dL 0.6-1.25 L TOTAL BILI (test code = 8131629536) 1.0 mg/dL 0.1-1.1 CALCIUM (test code = 5677794619) 9.3 mg/dL 8.6-10.6 T PROTEIN (test code = 4332926361) 7.4 g/dL 6.3-8.2 ALBUMIN (test code = 0196411496) 4.4 g/dL 3.5-5 ALK PHOS (test code = 8855691394) 134 U/L 34-122 H ALTv (test code = 1742-6) 17 U/L 5-50 AST(SGOT) (test code = 6116982247) 38 U/L 13-40 eGFR (test code = 1282664332) mL/min/1.73m2 JUAN ALBERTO (test code = JUAN [...] imaging tests). Lab Interpretation (test code = 68533-1) Abnormal [facility] CenterLIP[facility], [id number] 15:03:31* Test Item Value Reference Range Interpretation Comme nts LIPASE (test code = 8390916478) 29 U/L 0-220 Lab Interpretation (test cod e = 97981-6) Normal [facility] CenterCBC WITH [id number] 14:51:49* Test Item Value Reference Range Interpretation Comme nts WBC (test code = 6690-2) See_Comment [Automated Alphiona ge] The system which generated this result transmitted reference range: 4.20 - 10.70 10*3/?L. The reference range was not used to interpret this result as normal/abnormal. RBC (test code = 789-8) See_Comment [Automated Alphiona ge] The system which generated this result [...] 34.0 g/dL 31.2-35 RDW-SD (test code = 22776-6) 45.9 fL 38.5-51.6 RDW-CV (test code = 788-0) 13.3 % 12.1-15.4 PLT (test code = 777-3) See_Comment [Automated Alphiona ge] The system which generated this result transmitted reference range: 150 - 328 10*3/?L. The reference range was not used to interpret this result as normal/abnormal. MPV (test code = 17574-1) 8.4 fL 9.8-13 L NRBC/100 WBC (test code = [id number]) See_Comment [Automated me ssage] The system which generated this result transmitted reference range: 0.0 - 10.0 /100 WBCs. The reference range was not used to interpret this result as normal/abnormal. NRBC x10^3 (test code = [id number]) See_Comment [Automated messa ge] The system which generated this result transmitted reference range: 10*3/?L. The reference range was not used to interpret this result as normal/abnormal. GRAN MAT (NEUT) % (test code = 770-8) 63.0 % IMM GRAN % (test code = [id number]) 0.50 % LYMPH % (test code = 736-9) 25.2 % MONO % (test code = 5905-5) 9.8 % EOS % (test code = 713-8) 0.3 % BASO % (test code = 706-2) 1.2 % GRAN MAT x10^3(ANC) (test code = 1373735636) 3.73 10*3/uL 1.99-6.95 IMM GRAN x10^3 (test code = 7731438923) 0.03 10*3/uL 0-0.06 LYMPH x10^3 (test code = 731-0) 1.49 10*3/uL 1.09-3.23 MONO x10^3 (test code = 742-7) 0.58 10*3/uL 0.36-1.02 EOS x10^3 (test code = 711-2) 0.06-0.53 L BASO x10^3 (test code = 704-7) 0.07 10*3/uL 0.01-0.09 Lab Interpretation (test code = 05558-5) [facility] Rflx Cult/Puebt7365-00-88 13:53:00* Test Item Value Reference Range Interpretation Comme nts Color,Urine (test code = UCOL) Yellow Yellow Clarity,Urine (test code = UCLAR) Cloudy Clear A Ph, Urine (test code = UPH) 7.5 5.0-9.0 N Specific [place],Urine (test code = USG) 1.025 1.005-1.030 N [...] = ULEU) Negative mg/dL Negative UF REFLEXDrug Screen,Mkjht3827-39-71 13:53:00* Test Item Value Reference Range Interpretation [...] UPROP) Negative Negative Complete Blood Count Auto Psoj0497-83-98 12:58:00* Test Item Value Reference Range Interpretation [...] = NRBCP) 0 % Coronavirus PCR, COVID19 Xmrvo8821-15-00 12:58:00* Test Item Value Reference Range Interpretation Comme nts Coronavirus PCR, COVID19 Rapid (test code = SARSCOV2) Coronavirus PCR, COVID19 Rapid (test code = XXCFWZH23.1) Reference Range: Negative SARS-CoV-2 PCR Result: (test code = SARS-CoV-2 PCR Result:) Negative by RT-PCR COVID-19 Status: AsymptomaticComprehensive Metabolic Fjsyq5195-82-28 12:58:00* Test Item Value Reference Range Interpretation [...] = ALP) 144 U/L 46-116 H Ethanol Bswox9362-40-65 12:58:00* Test Item Value Reference Range Interpretation Comme nts Ethanol (test code = ETOH) < 3 mg/dL The pharmacologi yudy response to blood alcohol levels mayvary from individual to individual. The fatal concentrationhas been reported to be >400mg/dL. XMMCISR6669-11-63 01:47:56* Test Item Value Reference Range Interpretation Comme nts [place] (test code = 9482889557) 0.7 mmol/L 0.6-1.2 JUAN ALBERTO (test code = JUAN ALBERTO) Toxic Range: ? Greater than 1.2 mmol/L Lab Interpretation (test code = 88901-7) [facility] [id number] 00:26:53* Test Item Value Reference Range Interpretation Comments TROPONIN I (test code = 7909854027) 0.002 ng/mL See_Comment [Automated message] The system [...] of biotin. Lab Interpretation (test code = 56718-8) [facility] 00:18:52 ALCOHOL<10mg/dL01/19/2022 7:18 PM [facility]10 Voyrgklu93-034 Toxic>100 Depression of HUMAN RESOURCES LEADER>400 Fatalities ReportedB[facility] CenterCOMP. METABOLIC PANEL (68265)2022-01-20 00:16:16* Test Item Value Reference Range Interpretation Comme nts NA (test code = 6016134320) 137 mmol/L 135-145 K (test code = 5395809009) 4.5 mmol/L 3.5-5 CL (test code = 2684653493) 103 mmol/L 98-108 CO2 TOTAL (test code = 9908560269) 26 mmol/L 23-31 AGAP (test code = 1837806343) 2-16 BUN (test code = 1210005096) 10 mg/dL 7-23 GLUCOSE (test code = 6361131183) 121 mg/dL 70-110 H CREATININE (test code = 0514370255) 0.65 mg/dL 0.6-1.25 TOTAL BILI (test code = 9308500456) 0.8 mg/dL 0.1-1.1 CALCIUM (test code = 9880429826) 11.4 mg/dL 8.6-10.6 H T PROTEIN (test code = 8854145016) 7.2 g/dL 6.3-8.2 ALBUMIN (test code = 5406435503) 4.6 g/dL 3.5-5 ALK PHOS (test code = 5590026817) 112 U/L 34-122 ALTv (test code = 1742-6) 19 U/L 5-50 AST(SGOT) (test code = 1400874904) 26 U/L 13-40 eGFR (test code = 0208851052) mL/min/1.73m2 JUAN ALBERTO (test code = JUAN [...] imaging tests). Lab Interpretation (test code = 76923-0) Abnormal [facility] WITH [id number] 23:43:54* Test Item Value Reference Range Interpretation Comme nts WBC (test code = 6690-2) See_Comment [Automated Alphiona ge] The system which generated this result transmitted reference range: 4.20 - 10.70 10*3/?L. The reference range was not used to interpret this result as normal/abnormal. RBC (test code = 789-8) See_Comment [Automated Alphiona ge] The system which generated this result [...] 34.4 g/dL 31.2-35 RDW-SD (test code = 04024-5) 44.0 fL 38.5-51.6 RDW-CV (test code = 788-0) 12.6 % 12.1-15.4 PLT (test code = 777-3) See_Comment [Automated Alphiona ge] The system which generated this result transmitted reference range: 150 - 328 10*3/?L. The reference range was not used to interpret this result as normal/abnormal. MPV (test code = 48656-5) 9.1 fL 9.8-13 L NRBC/100 WBC (test code = 2361561124) See_Comment [Automated Movable ssage] The system which generated this result transmitted reference range: 0.0 - 10.0 /100 WBCs. The reference range was not used to interpret this result as normal/abnormal. NRBC x10^3 (test code = 2733143718) See_Comment [Automated Alphiona ge] The system which generated this result transmitted reference range: 10*3/?L. The reference range was not used to interpret this result as normal/abnormal. GRAN MAT (NEUT) % (test code = 770-8) 69.8 % IMM GRAN % (test code = 9105434404) 0.40 % LYMPH % (test code = 736-9) 18.0 % MONO % (test code = 5905-5) 10.9 % EOS % (test code = 713-8) 0.1 % BASO % (test code = 706-2) 0.8 % GRAN MAT x10^3(ANC) (test code = 7141169051) 5.58 10*3/uL 1.99-6.95 IMM GRAN x10^3 (test code = 9006126461) 0.03 10*3/uL 0-0.06 LYMPH x10^3 (test code = 731-0) 1.44 10*3/uL 1.09-3.23 MONO x10^3 (test code = 742-7) 0.87 10*3/uL 0.36-1.02 EOS x10^3 (test code = 711-2) 0.06-0.53 L BASO x10^3 (test code = 704-7) 0.06 10*3/uL 0.01-0.09 Lab Interpretation (test code = 83724-0) Abnormal [facility] GLUCOSE (AUTOMATED)2022-01-19 22:27:41* Test Item Value Reference Range Interpretation Comme nts POCT GLU (test code = 6182220559) 123 mg/dL 70-110 H Lab Interpretation (test cod e = 97734-5) Abnormal [facility] GLUCOSE (AUTOMATED)2021-12-30 22:08:16* Test Item Value Reference Range Interpretation Comme nts POCT GLU (test code = 7121851475) 167 mg/dL 70-110 H Lab Interpretation (test cod e = 19035-8) Abnormal [facility] GLUCOSE (AUTOMATED)2021-12-30 16:50:40* Test Item Value Reference Range Interpretation Comme nts POCT GLU (test code = 5109724230) 154 mg/dL 70-110 H Lab Interpretation (test cod e = 24969-4) Abnormal [facility] GLUCOSE (AUTOMATED)2021-12-30 12:38:43* Test Item Value Reference Range Interpretation Comme nts POCT GLU (test code = 4360593405) 164 mg/dL 70-110 H Lab Interpretation (test cod e = 23335-1) Abnormal [facility] GLUCOSE (AUTOMATED)2021-12-30 02:14:58* Test Item Value Reference Range Interpretation Comme nts POCT GLU (test code = 4381462368) 220 mg/dL 70-110 H Lab Interpretation (test cod e = 25225-0) Abnormal [facility] GLUCOSE (AUTOMATED)2021-12-29 21:50:02* Test Item Value Reference Range Interpretation Comme nts POCT GLU (test code = 8329218790) 191 mg/dL 70-110 H Lab Interpretation (test cod e = 19611-3) Abnormal [facility] GLUCOSE (AUTOMATED)2021-12-29 20:15:01* Test Item Value Reference Range Interpretation Comme nts POCT GLU (test code = 7218543654) 163 mg/dL 70-110 H Lab Interpretation (test cod e = 38686-1) Abnormal [facility] CenterTransthoracic echo (TTE)2021-12-29 19:12:22* Test Item Value Reference Range Interpretation Comme nts Height (test code = 6605756571) in Weight (test code = 6059919211) lbs Systolic BP (test code = 2277250991) mmHg Diastolic BP (test code = 3837731501) mmHg Heart Rate (test code = 0465427723) bpm BSA (test code = 9551846316) 1.62 m2 Ao root annulus (test code = 4013691267) 2.45 cm Ao root diam (test code = 3749372086) 2.45 cm Aortic root (test code = 9408021671) 2.45 cm ACS (test code = 7096510042) 1.66 cm LA size (test code = 6411394227) 3.2 cm LVOT diameter (test code = 2604834596) 1.95 cm LVIDD (test code = 9747466246) 3.60 cm IVS (test code = 2619369385) 0.94 cm Interventricular Septum Diastolic Thickness by 2D (test code = 5912840) 0.94 cm LVPWD (test code = 2173556589) 0.80 cm PW (test code = 4626011744) 0.80 cm 0.6-1.1 EF(Teich) (test code = 1714687314) 52.80 % LVIDS (test code = 4004936466) 2.60 cm FS (test code = 4769039518) 27 % EF - 2D (test code = 47714633) 52.80 % LAV(MOD-sp4) (test code = 6411856946) 16.80 mL MV Peak E Jovany (test code = 2986301565) 46.1 cm/s E wave decelartion time (test code = 9911271544) 0.31 s MV Peak A Jovany (test code = 5790522281) 58.1 cm/s E/A ratio (test code = 2393529350) ratio MV E/e' septal (test code = 6934715186) 5.7 cm/s Tapse (test code = 1035502482) 1.60 cm LVOT stroke volume (test code = 0808301235) 52.10 cm3 LVOT peak jovany (test code = 7848152712) 110.6 cm/s LVOT mn grad (test code = 0310141943) mmHg AV LVOT peak gradient (test code = 4294755697) mmHg LVOT peak VTI (test code = 2377194911) 17.4 cm LV V1 mean (test code = 3478110377) 66.10 cm/s Aortic valve mean velocity (test code = 5915332085) 73.0 cm/s Ao peak jovany (test code = 4237556223) 124.6 cm/s Ao VTI (test code = 3545877529) 18.6 cm AV area by cont VTI (test code = 3650214595) 2.8 cm2 AV area peak jovany (test code = 4079149221) 2.7 cm2 Ao max PG (test code = 3538092214) 6.20 mm[Hg] AV peak gradient (test code = 9968077778) mmHg AV valve area (test code = 6847076178) 2.80 cm2 AV mean gradient (test code = 1960271619) mmHg Radiology Study observation (narrative) (test code = 03547-3) JUAN ALBERTO (test code = JUAN ALBERTO) [...] of Lumason ultrasound enhancing agent used. [facility])2021-12-29 12:50:31* Test Item Value Reference Range Interpretation Comme nts POCT GLU (test code = 2067179241) 141 mg/dL 70-110 H Lab Interpretation (test cod e = 12369-6) Abnormal [facility] CenterTroponin [id number] 10:38:31* Test Item Value Reference Range Interpretation Comments TROPONIN I (test code = 9774571552) 0.003 ng/mL See_Comment [Automated message] The system [...] of biotin. Lab Interpretation (test code = 66818-0) Normal [facility] CenterLIPID PANEL (18585)(TOTAL CHOLESTEROL, TRIGLYCERIDES, HDL)2021-12-29 05:56:47* Test Item Value Reference Range Interpretation Comme nts CHOL (test code = 3751451522) 168 mg/dL 120-200 HDL (test code = 3154222790) 102 mg/dL See_Comment [Affinergy] The system which generated this result transmitted reference range: >=40. The reference range was not used to interpret this result as normal/abnormal. HDLC RATIO (test code = 6604729134) See_Comment [Automated byyd] The system which generated this result transmitted reference range: <=5.0. The reference range was not used to interpret this result as normal/abnormal. TRIG (test code = 0825105799) 55 mg/dL 30-170 LDL CHOL (test code = 78626-7) 55 mg/dL See_Comment [Affinergy] The system which generated this result transmitted reference range: <=160. The reference range was not used to interpret this result as normal/abnormal. VLDL (test code = 7271019075) 11 mg/dL 5-60 Lab Interpretation (test code = 85227-0) Normal [facility] CenterThyroid Stimulating Hormone (TSH)2021-12-29 05:40:29* Test Item Value Reference Range Interpretation Comme nts TSH (test code = 9281414272) See_Comment Biotin has been reported to cause a negative bias, interpret results relative to patient's use of biotin. [Automated message] The system which generated this result transmitted reference range: 0.45 - 4.70 mIU/L. The reference range was not used to interpret this result as normal/abnormal. Lab Interpretation (test code = 81267-2) Normal [facility] [id number] 05:34:29* Test Item Value Reference Range Interpretation Comments TROPONIN I (test code = 9232651842) 0.006 ng/mL See_Comment [Automated message] The system [...] of biotin. Lab Interpretation (test code = 04876-4) Normal [facility] CenterETHANOL2022-07-10 04:43:01 ALCOHOL<10mg/dL12/28/2021 11:43 PM [facility] Greater than or equal to 80 mg/dL. NOTE: Whole blood values are approximately 10% to 15% lower than serum and plasma.[facility] Glycosylated Hemoglobin (A1C)2021-12-29 01:51:44* Test Item Value Reference Range Interpretation Comme nts HGB A1C (test code = 4548-4) 6.5 % 4-5.7 H JUAN ALBERTO (test code = JUAN ALBERTO) Reference RangesNormal: <5.7%Prediabetes: 5.7 - 6.4%Diabetes: > 6.5% Lab Interpretation (test code = 10566-3) [facility]normal [facility] [id number] 21:26:50* Test Item Value Reference Range Interpretation Comments TROPONIN I (test code = 6851290317) 0.002 ng/mL See_Comment [Automated message] The system [...] of biotin. Lab Interpretation (test code = 29523-8) Normal [facility] CenterN-TERMINAL RBU-EAU9797-09-09 21:23:29* Test Item Value Reference Range Interpretation Comme nts NT-proBNP (test code = 4950639342) 41 pg/mL See_Comment [Automated message] The system which generated this result transmitted reference range: <=125. The reference range was not used to interpret this result as normal/abnormal. JUAN ALBERTO (test code = JUAN ALBERTO) Biotin has been reported to cause a negative bias, interpret results relative to patient's use of biotin. Lab Interpretation (test code = 74031-3) Normal [facility] CenterAMMONIA, [id number] 21:20:38* Test Item Value Reference Range Interpretation Comme nts AMMONIA (test code = 3403876058) 9-33 L Slight hemolysis Lab Interpretation (test code = 59792-6) Abnormal [facility] CenterCOMP. METABOLIC PANEL (26360)2021-12-28 21:08:48* Test Item Value Reference Range Interpretation Comme nts NA (test code = 1769461504) 137 mmol/L 135-145 K (test code = 6840477502) 4.5 mmol/L 3.5-5 CL (test code = 6290410358) 97 mmol/L 98-108 L CO2 TOTAL (test code = 4549980016) 29 mmol/L 23-31 AGAP (test code = 2011520132) 2-16 BUN (test code = 9445318771) 10 mg/dL 7-23 GLUCOSE (test code = 8079624630) 188 mg/dL 70-110 H CREATININE (test code = 5936139947) 0.58 mg/dL 0.6-1.25 L TOTAL BILI (test code = 0643649081) 0.8 mg/dL 0.1-1.1 CALCIUM (test code = 3285229712) 10.5 mg/dL 8.6-10.6 T PROTEIN (test code = 6750328054) 7.6 g/dL 6.3-8.2 ALBUMIN (test code = 9195626949) 4.5 g/dL 3.5-5 ALK PHOS (test code = 4073683851) 107 U/L 34-122 ALTv (test code = 1742-6) 66 U/L 5-50 H AST(SGOT) (test code = 3853467756) 96 U/L 13-40 H eGFR (test code = 7153257172) mL/min/1.73m2 JUAN ALBERTO (test code = JUAN [...] imaging tests). Lab Interpretation (test code = 12857-3) Abnormal [facility] CenterPROTHROMBIN TIME / [id number] 21:01:25* Test Item Value Reference Range Interpretation Comme nts PROTIME PATIENT (test code = 5964-2) See_Comment [Automated Alphiona ge] The system which generated this result transmitted reference range: 12.0 - 14.7 Seconds. The reference range was not used to interpret this result as normal/abnormal. INR (test code = 6301-6) Normal INR <1.1; Warfarin Therapeutic range 2.0 to 3.0 or 2.5 to 3.5, depending upon the indications. Lab Interpretation (test code = 80746-1) Normal [facility] CenterCBC WITH [id number] 20:54:03* Test Item Value Reference Range Interpretation Comme nts WBC (test code = 6690-2) See_Comment [Automated Alphiona [employer]] The system which generated this result transmitted reference range: 4.20 - 10.70 10*3/?L. The reference range was not used to interpret this result as normal/abnormal. RBC (test code = 789-8) See_Comment [Automated Alphiona ge] The system which generated this result [...] 34.2 g/dL 31.2-35 RDW-SD (test code = 33208-0) 47.8 fL 38.5-51.6 RDW-CV (test code = 788-0) 13.3 % 12.1-15.4 PLT (test code = 777-3) See_Comment [Automated Alphiona ge] The system which generated this result transmitted reference range: 150 - 328 10*3/?L. The reference range was not used to interpret this result as normal/abnormal. MPV (test code = 61102-1) 8.6 fL 9.8-13 L NRBC/100 WBC (test code = 3989211830) See_Comment [Automated me ssage] The system which generated this result transmitted reference range: 0.0 - 10.0 /100 WBCs. The reference range was not used to interpret this result as normal/abnormal. NRBC x10^3 (test code = 2628557374) See_Comment [Automated messa ge] The system which generated this result transmitted reference range: 10*3/?L. The reference range was not used to interpret this result as normal/abnormal. GRAN MAT (NEUT) % (test code = 770-8) 64.1 % IMM GRAN % (test code = 6735687999) 0.40 % LYMPH % (test code = 736-9) 16.6 % MONO % (test code = 5905-5) 17.2 % EOS % (test code = 713-8) 0.2 % BASO % (test code = 706-2) 1.5 % GRAN MAT x10^3(ANC) (test code = 9682075491) 3.47 10*3/uL 1.99-6.95 IMM GRAN x10^3 (test code = 5209631171) 0-0.06 LYMPH x10^3 (test code = 731-0) 0.90 10*3/uL 1.09-3.23 L MONO x10^3 (test code = 742-7) 0.93 10*3/uL 0.36-1.02 EOS x10^3 (test code = 711-2) 0.06-0.53 L BASO x10^3 (test code = 704-7) 0.08 10*3/uL 0.01-0.09 Lab Interpretation (test code = 40671-9) Abnormal [facility] CenterEthanol Fckrm5629-11-52 21:08:00* Test Item Value Reference Range Interpretation Comme nts Ethanol (test code = ETOH) < 3 mg/dL The pharmacologi yudy response to blood alcohol levels mayvary from individual to individual. The fatal concentrationhas been reported to be >400mg/dL. Complete Blood Count Auto [id number] 17:33:00* Test Item Value Reference Range Interpretation [...] = NRBCP) 0 % UA, Urinalysis Rflx Cult/Hlwxm4055-87-19 17:33:00* Test Item Value Reference Range Interpretation Comme nts Color,Urine (test code = UCOL) Dark Yellow Yellow A Clarity,Urine (test code = UCLAR) Clear Clear Ph, Urine (test code = UPH) 6.5 5.0-9.0 N Specific [place],Urine (test code = USG) 1.015 1.005-1.030 N [...] = ULEU) Trace mg/dL Negative A Urine Likwbndwtey9960-93-07 17:33:00* Test Item Value Reference Range Interpretation Comme nts RBC,Urine (test code = URBCUF) None Seen /HPF 0-2 WBC,Urine (test code = UWBCUF) 0-5 /HPF 0-5 Epithelial Cell,Urine (test code = UECUF) 0-5 /HPF 0-5 Casts,Urine (test code = UCASTUF) None Seen /LPF None Seen Bacteria,Urine (test code = UBACTUF) None Seen /hpf None Seen Drug Screen,Ydwyr7424-20-25 17:33:00* Test Item Value Reference Range Interpretation [...] code = UPROP) Negative Negative Comprehensive Metabolic Bghco3412-67-21 17:33:00* Test Item Value Reference Range Interpretation [...] 101 U/L 46-116 N Sars-CoV-2/FLU A/B RSV [id number] 17:31:00* Test Item Value Reference Range Interpretation [...] SARS-CoV-2 PCR Result:) Negative by RT-PCR Drug Screen,Wojkf9696-33-74 17:20:00* Test Item Value Reference Range Interpretation [...] UPROP) Negative Negative Complete Blood Count Auto Zzjm7347-67-91 17:14:00* Test Item Value Reference Range Interpretation [...] code = NRBCP) 0 % Comprehensive Metabolic Ftedj9427-66-60 17:14:00* Test Item Value Reference Range Interpretation [...] = ALP) 207 U/L 46-116 H Ethanol Plqxe6455-15-30 17:14:00* Test Item Value Reference Range Interpretation Comme nts Ethanol (test code = ETOH) 192 mg/dL Complete Blood Count Auto Dulm3482-21-05 20:20:00* Test Item Value Reference Range Interpretation [...] code = NRBCP) 0 % Comprehensive Metabolic Fmoid1801-06-86 20:20:00* Test Item Value Reference Range Interpretation [...] = ALP) 189 U/L 46-116 H Ethanol Vjfvt9190-13-32 20:20:00* Test Item Value Reference Range Interpretation Comme nts Ethanol (test code = ETOH) 10 mg/dL Sars-CoV-2/FLU A/B RSV [id number] 20:20:00* Test Item Value Reference Range Interpretation [...] Negative by Nucleic Acid Amplification UA, Urinalysis Jexsgqsddgz2253-37-02 20:20:00* Test Item Value Reference Range Interpretation Comme nts Color,Urine (test code = UCOL) Yellow Y Clarity,Urine (test code = UCLAR) Clear Clear PH,Urine (test code = UPH.XX) 7.0 5.5-8.5 Specific [place],Urine (test code = USG) 1.020 1.005-1.030 N [...] code = ULEU) Negative cells/uL Negative Drug Screen,Gvzfm6367-33-97 20:20:00* Test Item Value Reference Range Interpretation [...] RESULT TO FO LLOW CT head/brain wo [facility] [address] [place] [address] Patient Name: Walt Velazquez Medical Record#: [id number] Address: Homeless City/State/Zip: [place] [address]: Vinnie Navarro MD Insurance: Self Pay /Age/Sex: 1970/50/M Admit/Reg Date: 09/17/[address]: Vinnie Navarro MD Location: [facility]/ PCP: PcpMd KERWIN Jimenez Date of Service: 09/17/21 Order (s): CT head/brain wo con CPT Code: 80839 Report Number: [id number] Reason for Exam: Altered mental status Location [...] steady gait, in no apparent distress, T [facility] [employer] 2023-12-12 22:20:05 Pt removed all monitoring equipment T [facility] [employer] 2023-12-12 20:33:23 Pt brought in by [place] [employer] for medical clearance. [place] [facility] check pt out on scene but after pt complained of chest pain. [place] [employer] brought pt in for clearance for county. Zeina Albrecht RN [facility] 2023-11-05 16:26:20 Pt discharged with diagnosis of CP. Printed and verbal instructions reviewed with and given to pt. Prescriptions given x 0. Pt verbalized understanding of teaching and recommended follow-up. Denies questions or concerns at this time. Pt ambulatory to holding room to await transportation at discharge. Appears in no apparent distress. No ataxia noted. [facility]. Renae Saldivar RN [facility] 2023-11-05 14:56:10 Walt Festus Velazquez Sr. is a 52 year old male arrive via [facility] c/o " throbbing ball in chest" since 0600 has been constant, pt immediately asks for food, Emani Gomez RN [facility]
== END 2024-02-06 19:45 | disposition home or self-care (01) ==
LOC: ER 18:56
DX: R53.1 Weakness (principal); F10.20 Alcohol dependence, uncomplicated; F17.210 Nicotine dependence, cigarettes, uncomplicated
CPT/HCPCS: 99283

== ENCOUNTER 2024-02-06 21:11 | Emergency (ER) | payer SELFPAY ==
--- NOTE | 2024-02-06 21:27 | EDPHYS ---
Physician Documentation [facility] Name: Walt Velazquez Age: 53 yrs Sex: Male : 1970 Arrival Date: 02/06/2024 Time: 21:11 Bed 7 Private MD: ED Physician Kaleb Groves HPI: 02/05 21:25 This 53 yrs old Male presents to ER via EMS with complaints of Chest Pain. ec2 21:25 Patient arrives today for evaluation of nonspecific chest pain. Patient was seen 2 ec2 times earlier today, no reported chest pain, states that he has some chest pain that he is unable to further qualify, denies any exertional component, denies difficulty breathing. . Historical: - Allergies: 21:14 Trazodone; too strong for him; cp4 - PMHx: 21:14 Alcoholism; Bipolar II; Hypertensive disorder; Parkinsons; Seizure; cp4 - PSHx: 21:14 toe amputation; cp4 - Immunization history:: Adult Immunizations up to date. - Infectious Disease History:: Denies. - Social history:: Smoking status: Patient denies any tobacco usage or history of. ROS: 21:25 Constitutional: as per hpi ec2 Exam: 21:25 Constitutional: GEN: NAD Head: atraumatic Eyes: EOMI Ears: External ears are ec2 normal. CV: regular rate LUNGS: no respiratory distress ABD: non-distended SKIN: no evidence of rashes MSK: no evidence of trauma Vital Signs: 21:20 BP 117 / 73; Pulse 92; Resp 18; Temp 98; Pulse Ox 99% ; cp4 MDM: 21:13 Patient medically screened. ec2 21:25 Data reviewed: vital signs. ED course: Patient arrives today for reported chest pain. ec2 Examination remarkable for well-appearing nontoxic individual is otherwise in no acute distress. I obtained an EKG, this was independently reviewed and interpreted by me, shows normal sinus rhythm, rate of 98, no acute ST segment elevations, normals are nonconcerning. When compared to external records, this appears grossly unchanged. I have a low suspicion for processes such as ACS, PE or dissection. Patient is hemodynamically stable and appropriate and in no acute distress. Patient is appropriate for discharge and can follow-up outpatient. . 02/05 21:13 Order name: EKG - Nurse/Tech; Complete Time: 21:20 ec2 Administered Medications: No medications were administered Disposition Summary: 02/06/24 21:27 Discharge Ordered Notes: Location: Home ec2 Condition: Stable ec2 Diagnosis - Chest pain, unspecified ec2 Followup: ec2 - With: Private Physician - When: - Reason: Re-evaluation by your physician Forms: - Medication Reconciliation Form ec2 - Antibiotic Education ec2 - Prescription Opioid Use ec2 - Patient Portal Instructions ec2 - Leadership Thank You Letter ec2 Signatures: Kaleb Groves MD MD ec2 Fidelia Saldivar cp4
--- NOTE | 2024-02-06 21:27 | ER ---
Nurse's Notes [facility] Name: Walt Velazquez Age: 53 yrs Sex: Male : 1970 Arrival Date: 02/06/2024 Time: 21:11 Bed 7 Private MD: Diagnosis: Chest pain, unspecified Presentation: 02/05 21:13 Chief complaint: EMS states: chest pain that has been going on all day. Coronavirus cp4 screen: Client denies travel out of the [place] in the last 14 days. At this time, the client does not indicate any symptoms associated with coronavirus-19. Ebola Screen: Patient negative for fever greater than or equal to 101.5 degrees Fahrenheit, and additional compatible Ebola Virus Disease symptoms Patient denies exposure to infectious person. Patient denies travel to an Ebola-affected area in the 21 days before illness onset. No symptoms or risks identified at this time. Initial Sepsis Screen: Does the patient meet any 2 criteria? No. Patient's initial sepsis screen is negative. Does the patient have a suspected source of infection? No. Patient's initial sepsis screen is negative. Risk Assessment: Do you want to hurt yourself or someone else? Patient reports no desire to harm self or others. Onset of symptoms was February 06, 2024. 21:13 Method Of Arrival: EMS: [facility] cp4 21:13 Acuity: LATASHA 3 cp4 Triage Assessment: 21:14 General: Appears in no apparent distress. comfortable, Behavior is calm, cooperative, cp4 appropriate for age. Pain: Complains of pain in chest Pain currently is 10 out of 10 on a pain scale. EENT: No signs and/or symptoms were reported regarding the EENT system. Neuro: Level of Consciousness is awake, alert, obeys commands, Oriented to person, place, time, situation. Cardiovascular: Rhythm is sinus rhythm. Respiratory: Airway is patent Respiratory effort is even, unlabored. GI: No signs and/or symptoms were reported involving the gastrointestinal system. : No signs and/or symptoms were reported regarding the genitourinary system. Derm: No signs and/or symptoms reported regarding the dermatologic system. Musculoskeletal: No signs and/or symptoms reported regarding the musculoskeletal system. Historical: - Allergies: 21:14 Trazodone; too strong for him; cp4 - PMHx: 21:14 Alcoholism; Bipolar II; Hypertensive disorder; Parkinsons; Seizure; cp4 - PSHx: 21:14 toe amputation; cp4 - Immunization history:: Adult Immunizations up to date. - Infectious Disease History:: Denies. - Social history:: Smoking status: Patient denies any tobacco usage or history of. Screenin:16 [facility] ED Fall Risk Assessment (Adult) History of falling in the last 3 months, cp4 including since admission No falls in past 3 months (0 pts) Confusion or Disorientation No (0 pts) Intoxicated or Sedated Yes (3 pts) Impaired Gait No (0 pts) Mobility Assist Device Used No (0 pt) Altered Elimination No (0 pt) Score/Fall Risk Level 0 - 2 = Low Risk Oriented to surroundings, Maintained a safe environment, Assessed \T\ reinforced patient's understanding of fall precautions, Hourly rounding (assess needs \T\ fall precautionary measures) done. [facility] ED Fall Risk Assessment (Adult) Score/Fall Risk Level 3 or more points = High Risk Oriented to surroundings, Maintained a safe environment, Assessed \T\ reinforced patient's understanding of fall precautions, Hourly rounding (assess needs \T\ fall precautionary measures) done, Used ambulatory aids as needed (educated on \T\ assisted with). Abuse screen: Denies threats or abuse. Nutritional screening: No deficits noted. Tuberculosis screening: No symptoms or risk factors identified. Assessment: 21:16 Reassessment: No changes from previously documented assessment. Pain: Pain does not cp4 radiate. Pain began all day. Vital Signs: 21:20 BP 117 / 73; Pulse 92; Resp 18; Temp 98; Pulse Ox 99% ; cp4 ED Course: 21:12 Patient arrived in ED. cp4 21:12 Kaleb Groves MD is Attending Physician. ec2 21:13 Fidelia Saldivar is Primary Nurse. cp4 21:14 Triage completed. cp4 21:16 Bed in low position. Call light in reach. Side rails up X2. Client placed on continuous cp4 cardiac and pulse oximetry monitoring. NIBP monitoring applied. environmental monitoring technician on. Pulse ox on. 21:16 Maintain EMS IV. Dressing intact. Good blood return noted. Site clean \T\ dry. Gauge \T\ cp 4 site: 20G RAC. Flushed with 10 mL NS. Patient maintains SpO2 saturation greater than 95% on room air. 21:35 Provided Education on: chest pain. cp4 21:35 No provider procedures requiring assistance completed. intact, bleeding controlled, No cp4 redness/swelling at site. Pressure dressing applied. 21:36 Arm band placed on right wrist. Patient placed in an exam room, on a stretcher. cp4 Administered Medications: No medications were administered Medication: 21:16 VIS not applicable for this client. cp4 Outcome: 21:27 Discharge ordered by . ec2 21:35 Discharged to home ambulatory, cp4 21:35 Condition: stable 21:35 Discharge instructions given to patient, Instructed on discharge instructions, follow up and referral plans. Demonstrated understanding of instructions, follow-up care, 21:36 Patient left the ED. cp4 Signatures: Kaleb Groves MD MD ec2 Fidelia Saldivar cp4
[2024-02-06 21:39] VITALS: BP 117/73; TEMP 98; O2SAT 99
--- OUTSIDE RECORDS SUMMARY | 2024-02-09 11:55 | XMS REPORT | Continuity of Care Document ---
Author Name Unknown Address [address] [facility] [address] [place] [address] [facility] Address [address] [facility] [address] [place] [address] Care Team Providers Care Photo Editor Name Role Phone Pcp-None Primary Care Physician Unavailab Rafael Thomas MD Attending Clinician [phone] Sulaiman Hawkins DO Attending Clinician [phone] HEMANT KLEIN Attending Clinician Unavailable Hemant Klein MD Attending Clinician [phone] Pan [place] Attending Clinician Unavailab JESSICA Gallardo Attending Clinician Unavailable Rayray Driscoll MD Attending Clinician [phone] Jessica Prado MD Attending Clinician [phone] Oswald Murphy MD Attending Clinician [phone] DIYA CHOWDHURY Attending Clinician Unavailab Diya Mackey DO Attending Clinician [phone] Fidel Cuellar Attending Clinician Unavailable DIRK YARBROUGH Attending Clinician Unavailable Leticia Rowland Attending Clinician [phone] Dirk Yarbrough MD Attending Clinician [phone] Faye Portillo LVN Attending Clinician [phone] Pia Reddy Attending Clinician [phone] Vinnie Navarro Attending Clinician Unavailable OSWALD MURPHY Admitting Clinician Unavailable Oswald Murphy MD Admitting Clinician [phone] DIYA CHOWDHURY Admitting Clinician UnavailLeticia Gaytan Admitting Clinician Unavailable JESSICA PRADO Admitting Clinician Unavailable Jessica Prado MD Admitting Clinician [phone] Payers Payer Name Policy Type Policy Number Effective Date Expirati on Date Source Problems Condition Name Condition Details Condition Category Status Onset Date Resolution Date Last Treatment Date Treating Clinician Comments Source Alcohol withdrawal syndrome with complicati on Alcohol withdrawal syndrome with complicati on Disease Active 2-19 00:00: 00 [facility] Type 2 diabetes mellitus with other specified complicati on Type 2 diabetes mellitus with other specified complicati on Disease Active - 00:00: 00 [facility] Dyslipidem ia Dyslipidem ia Disease Active 12-29 00:00: 00 [facility] Chest pain, unspecifie d type Chest pain, unspecifie d type Disease Active 7- 00:00: 00 [facility] Priapism Priapism Disease Active 2013-06- 00:00: 00 [facility] Allergies, Adverse Reactions, Alerts Allergy Name Allergy Type Status Severity Reaction(s) Onset Date Inactive Date Treating Clinician Comments Source No Known Drug Allergie s DA Active U 4-25 00:00: 00 [facility] No Known Drug Allergie s DA Active U 0 9-16 00:00: 00 [facility] No Known Drug Allergie s DA Active U 3-29 00:00: 00 [facility] No Known Drug Allergie s DA Active U 2019-06 2-16 00:00: 00 [facility] No Known Drug Allergie s DA Active U 2019-06 2-15 00:00: 00 [facility] No Known Drug Allergie s DA Active U 2019-06 00:00: 00 [facility] Trazodon e Propensi ty to adverse reaction s Active Other - See comments 10-06 00:00: 00 [facility] TRAZODON E DRUG INGREDI Active Other-Cmnt 10-06 00:00: 00 [facility] Social History Social Habit Start Date Stop Date Quantity Comments Source History of tobacco use Cigarette Smoker [facility] Alcoholic beverage intake 2023-11-07 00:00:00 2023-11-07 00:00:00 Current drinker of alcohol (finding) [facility] History of Social function 2023-11-07 00:00:00 2023-11-07 00:00:00 [facility] Exposure to SARS-CoV-2 (event) 2022-11-01 00:00:00 2022-11-11 13:57:00 Not sure [facility] Tobacco use and exposure 2022-08-10 00:00:00 2022-08-10 00:00:00 User of smokeless tobacco [facility] Alcohol intake 2022-08-10 00:00:00 2022-08-10 00:00:00 Current drinker of alcohol (finding) [facility] Tobacco Comment 2022-08-10 00:00:00 2022-08-10 00:00:00 1/2 a pack a day [facility] Sex assigned at 1970 00:00:00 1970 00:00:00 [facility] Smoking Status Start Date Stop Date Source Smokes tobacco daily 2022-08-10 00:00:00 [facility] Medications Ordered Medication Name Filled Medication Name Start Date Stop Date Current Medication? Ordering Clinician Indication Dosage Frequency Signature (SIG) Comments Components Source NaCl 0.9% (NS) bolus infusion 1,000 mL 11-11 19:45: 00 11-11 20:23 :00 No 1000mL at 999 mL/hr, 1,000 mL, IV Piggyback, ONCE, 1 dose, On Thu11/11/22 at 1445, STAT [facility] multivitami n tablet 1 tablet 08-12 15:00: 00 Yes 1{tbl} 1 tablet, Oral, DAILY, First dose on Thu08/12/22 at 0900, Until Discontinu ed, Routine [facility] foLIC acid (FOLATE) tablet 1 mg 08-12 15:00: 00 Yes 1mg 1 mg, Oral, DAILY, First dose on Thu08/12/22 at 0900, Until Discontinu ed, Routine [facility] foLIC acid 1 mg tablet 08-12 00:00: 00 09-12 04:59 :00 No [id number] 1mg Take 1 tablet by mouth in the morning for 30 days. [facility] oxazepam (SERAX) capsule 15 [...] Thu08/13/22 at 0600, Routine [Order 2 End] [facility] thiamine (VITAMIN B1) tablet 100 mg 08-11 16:15: 00 Yes 100mg 100 mg, Oral, DAILY, First dose on Thu08/11/22 at 1015, Until Discontinu ed, Routine [facility] enoxaparin (LOVENOX) injection 40 mg 08-10 23:00: 00 Yes 40mg 40 mg, Subcutaneo us, DAILY, First dose on Thu08/10/22 at 1700, Until Discontinu ed, Routine [facility] NaCl 0.9% (NS) IV infusion 1,000 mL 08-10 15:00: 00 Yes 1000mL at 125 mL/hr, IV Infusion, CONTINUOUS , Starting on Thu08/10/22 at 0900, Until Discontinu ed, Routine [facility] foLIC acid (FOLATE) 5 mg in NaCl 0.9% (NS) piggyback 08-10 15:00: 00 08-11 16:14 :47 No 5mg IV Piggyback, DAILY, First dose on Thu08/10/22 at 0900, Until Discontinu ed, 50 mL Univers [facility] thiamine (VITAMIN B1) 100 mg in NaCl 0.9% (NS) piggyback 08-10 15:00: 00 08-10 16:08 :00 No 100mg IV Piggyback, DAILY, 1 dose, First dose on Thu08/10/22 at 0900, 50 mL [facility] LORazepam (ATIVAN) injection 2 mg 08-10 14:52: 57 Yes 2mg 2 mg, Slow IV Push, Q4HPRN, Starting on Thu08/10/22 at 0852, Until Discontinu ed, Routine, Seizures, Agitation, Anxiety [facility] Sliding Scale Insulin-Reg ular + Fsbg Testing 08-10 13:30: 00 Yes Subcutaneo us, AC+HS, First dose on Thu08/10/22 at 0730, Until Discontinu ed, Routine [facility] oxazepam (SERAX) capsule 15 mg 08-10 12:08: 05 Yes 15mg 15 mg, Oral, Q4HPRN, Starting on Thu08/10/22 at 0608, Until Discontinu ed, Routine, Only while awake for DBP equal to or greater than 100, HR equal to or greater than 100. [facility] dextrose 10% (D10W) bolus infusion 250 [...] blood glucose is < 80 mg/dL, repeat.
[facility] glucagon (GLUCAGEN DIAGNOSTIC KIT) injection 1 mg 08-10 12:03: 20 Yes 1mg 1 mg, Intramuscu lar, PRN, Starting on Thu08/10/22 at 0603, Until Discontinu ed, JACIEL, Blood Glucose < or = 70 mg/dL and patient is NPO, unable to swallow or has mental changes. [facility] ondansetron (ZOFRAN (PF)) injection 4 mg 08-10 12:02: 53 Yes 4mg 4 mg, Slow IV Push, Q6HPRN, Starting on Thu08/10/22 at 0602, Until Discontinu ed, Routine, Nausea and Vomiting (N/V) [facility] ibuprofen (MOTRIN IB) tablet 200 mg 08-10 12:02: 45 Yes 200mg 200 mg, Oral, Q6HPRN, Starting on Thu08/10/22 at 0602, Until Discontinu ed, Routine, Pain (scale 1-3) [facility] NaCl 0.9% (NS) bolus infusion 1,000 mL 08-10 10:15: 00 08-10 13:00 :00 No 1000mL at 999 mL/hr, 1,000 mL, IV Infusion, ONCE, 1 dose, On Thu08/10/22 at 0415, STAT [facility] LORazepam (ATIVAN) injection 0.5 mg 08-10 09:15: 00 08-10 09:19 :00 No .5mg 0.5 mg, Slow IV Push, ONCE, 1 dose, On Thu08/10/22 at 0315, STAT [facility] LORazepam (ATIVAN) injection 1 mg 08-10 08:00: 00 08-10 07:05 :00 No 1mg 1 mg, Slow IV Push, ONCE NOW, 1 dose, On 08/10/22 at 0200, STAT [facility] thiamine (VITAMIN B1) injection 100 mg 08-10 06:45: 00 08-10 06:52 :00 No 100mg 100 mg, Intravenou s, ONCE, 1 dose, [facility] 08/10/22 at 0045[facility]AN[facility] 1 mg 08-10 05:15: 00 08-10 05:22 :00 No 1mg 1 mg, Slow IV Push, ONCE, 1 dose, On 08/09/22 at 2315, STAT [facility] ketorolac (TORADOL) injection 15 mg 2021-06 0-16 16:00: 00 04-06 14:50 :00 No 15mg 15 mg, Slow IV Push, ONCE, 1 dose, On 04/06/22 at 1100, [facility] ondansetron (ZOFRAN (PF)) injection 4 [...] Last dose on Thu12/31/21 at 1330, Routine [facility] multivitami n tablet 12-31 00:00: 00 Yes [id number] 1{tbl} Take 1 tablet by mouth in the morning. [facility] thiamine 100 mg tablet 12-31 00:00: 00 Yes [id number] 100mg Take 1 tablet by mouth in the morning. [facility] aspirin 81 mg chewable tablet 12-31 00:00: 00 Yes [id number] 81mg Take 1 tablet by mouth in the morning. [facility] foLIC acid 1 mg tablet 12-31 00:00: 00 01-31 04:59 :00 No [id number] 1mg Take 1 tablet by mouth in the morning for 30 days. [facility] metFORMIN 500 mg tablet 12-30 00:00: 00 Yes [id number] 500mg Take 1 tablet by mouth in the morning and 1 tablet in the evening. Take with meals. [facility] aspirin chewable tablet 81 mg 12-29 14:00: 00 Yes 81mg 81 mg, Oral, DAILY, First dose on Thu12/29/21 at 0900, Until Discontinu ed, Routine [facility] sulfur hexafluorid e microsphr (LUMASON) injection 5 mL 12-29 13:45: 00 12-29 13:45 :00 No [id number] 5mL 5 mL, Intravenou s, ONCE, 1 dose, On 12/29/21 at 0845, Routine
receiving team member approving Restricted medication : STEFANIE GORMAN [facility] enoxaparin (LOVENOX) injection 40 mg 12-29 13:00: 00 Yes 40mg 40 mg, Subcutaneo us, Q24H, First dose on Thu12/29/21 at 0800, Until Discontinu ed, Routine [facility] Sliding Scale Insulin - Lispro (HumaLOG) + Fsbg Testing 12-29 13:00: 00 Yes Subcutaneo us, TID MEALS+HS, First dose on Thu12/29/21 at 0800, Until Discontinu ed, Routine [facility] diazePAM (VALIUM) injection 10 mg 12-29 05:30: 00 12-29 04:40 :00 No 10mg 10 mg, Intravenou s, ONCE, 1 dose, On Thu12/29/21 at 0030, Routine [facility] diazePAM (VALIUM) injection 10 mg 12-29 04:15: 00 12-29 03:17 :00 No 10mg 10 mg, Intravenou s, ONCE, 1 dose, On 12/28/21 at 2315, Routine [facility] diazePAM (VALIUM) injection 5 mg 12-29 03:45: 01 Yes 5mg 5 mg, Intravenou s, QIDPRN, Starting on 12/28/21 at 2245, Until Discontinu ed, Routine, Seizures, Agitation [facility] foLIC acid (FOLATE) tablet 1 mg 12-29 03:45: 00 Yes 1mg 1 mg, Oral, DAILY, First dose on 12/28/21 at 2245, Until Discontinu ed, Routine [facility] thiamine (VITAMIN B1) tablet 100 mg 12-29 03:45: 00 Yes 100mg 100 mg, Oral, DAILY, First dose (after last modificati on) on 12/28/21 at 2245, Until Discontinu ed, Routine [facility] glucagon (GLUCAGEN DIAGNOSTIC KIT) injection 1 mg 12-29 03:42: 19 Yes 1mg 1 mg, Intramuscu lar, PRN, Starting on 12/28/21 at 2242, Until Discontinu ed, JACIEL, Blood Glucose < or = 70 mg/dL and patient is unable to swallow or has mental changes. [facility] dextrose 10% (D10W) bolus infusion [...] blood glucose is < 80 mg/dL, repeat.
[facility] LORazepam (ATIVAN) injection 1 mg 12-29 03:30: 00 12-29 02:32 :00 No 1mg 1 mg, Intravenou s, ONCE, 1 dose, On 12/28/21 at 2230, Routine
Is the medication being used for status epilepticu s? No [facility] oxazepam (SERAX) capsule 15 mg 12-29 00:28: 20 Yes 15mg 15 mg, Oral, Q4HPRN, Starting on 12/28/21 at 1928, Until Discontinu ed, Routine, Only while awake for DBP equal to or greater than 100, HR equal to or greater than 100. [facility] ondansetron (ZOFRAN (PF)) injection 4 mg 12-29 00:23: 47 Yes 4mg 4 mg, Slow IV Push, Q6HPRN, Starting on 12/28/21 at 1923, Until Discontinu ed, Routine, Nausea and Vomiting (N/V) [facility] acetaminoph en (TYLENOL) tablet 650 mg 12-29 00:23: 37 Yes 650mg 650 mg, Oral, Q6HPRN, Starting on 12/28/21 at 1923, Until Discontinu ed, Routine, Pain (scale 1-3), Temp > 38.5 C [facility] chlordiazeP OXIDE (LIBRIUM) capsule 25 mg 12-28 23:15: 00 12-28 23:24 :00 No 25mg 25 mg, Oral, ONCE, 1 dose, On 12/28/21 at 1815, [facility] NaCl 0.9% (NS) bolus infusion 2,000 mL 12-28 22:45: 00 12-28 23:18 :00 No 2000mL at 999 mL/hr, 2,000 mL, IV Infusion, ONCE, 1 dose, On 12/28/21 at 1745, JACIEL [facility] LORazepam (ATIVAN) injection 1 mg 12-28 20:45: 00 12-28 20:49 :00 No 1mg 1 mg, Slow IV Push, ONCE, 1 dose, On 12/28/21 at 1545, STAT
Is the medication being used for status epilepticu s? No [facility] acetaminoph en (TYLENOL) 500 mg tablet 10-06 00:00: 00 Yes 500mg Take 1 Tab by mouth every 6 (six) hours as needed for Pain. [facility] Vital Signs Vital Name Observation Time Observation Value Comments S ource Systolic blood pressure 2023-12-13 05:16:00 125 mm[Hg] [facility] Diastolic blood pressure 2023-12-13 05:16:00 90 mm[Hg] [facility] Heart rate 2023-12-13 05:16:00 77 /min [facility] Body temperature 2023-12-13 05:16:00 36.06 Theresa [facility] Respiratory rate 2023-12-13 05:16:00 16 /min [facility] Oxygen saturation in Arterial blood by Pulse oximetry 2023-12-13 05:16:00 98 /min [facility] Body height 2023-12-13 01:35:00 157.5 cm [facility] Body weight 2023-12-13 01:35:00 65.772 kg [facility] BMI 2023-12-13 01:35:00 26.52 kg/m2 [facility] Systolic blood pressure 2023-11-05 21:00:00 106 mm[Hg] [facility] Diastolic blood pressure 2023-11-05 21:00:00 70 mm[Hg] [facility] Heart rate 2023-11-05 21:00:00 74 /min [facility] Body temperature 2023-11-05 21:00:00 36.5 Theresa [facility] Respiratory rate 2023-11-05 21:00:00 21 /min [facility] Oxygen saturation in Arterial blood by Pulse oximetry 2023-11-05 21:00:00 98 /min [facility] Body height 2023-11-05 19:59:00 160 cm [facility] Body weight 2023-11-05 19:59:00 63.504 kg [facility] BMI 2023-11-05 19:59:00 24.80 kg/m2 [facility] Systolic blood pressure 2022-11-11 20:31:31 116 mm[Hg] [facility] Diastolic blood pressure 2022-11-11 20:31:31 77 mm[Hg] [facility] Heart rate 2022-11-11 20:31:31 84 /min [facility] Respiratory rate 2022-11-11 20:31:31 12 /min [facility] Oxygen saturation in Arterial blood by Pulse oximetry 2022-11-11 20:31:31 90 /min [facility] Body temperature 2022-11-11 18:49:00 37.11 Theresa [facility] Body height 2022-11-11 18:49:00 160 cm [facility] Body weight 2022-11-11 18:49:00 68.04 kg [facility] BMI 2022-11-11 18:49:00 26.57 kg/m2 [facility] Body temperature 2022-08-11 14:00:00 36.5 Theresa [facility] Systolic blood pressure 2022-08-11 10:00:00 116 mm[Hg] [facility] Diastolic blood pressure 2022-08-11 10:00:00 71 mm[Hg] [facility] Heart rate 2022-08-11 10:00:00 70 [facility] Respiratory rate 2022-08-11 10:00:00 16 /min [facility] Body weight 2022-08-11 10:00:00 65.499 kg [facility] BMI 2022-08-11 10:00:00 25.58 kg/m2 [facility] Oxygen saturation in Arterial blood by Pulse oximetry 2022-08-11 10:00:00 100 /min [facility] Body height 2022-08-10 22:12:00 160 cm [facility] Systolic blood pressure 2022-04-06 16:00:00 125 mm[Hg] [facility] Diastolic blood pressure 2022-04-06 16:00:00 75 mm[Hg] [facility] Heart rate 2022-04-06 16:00:00 87 /min [facility] Respiratory rate 2022-04-06 16:00:00 22 /min [facility] Oxygen saturation in Arterial blood by Pulse oximetry 2022-04-06 16:00:00 98 /min [facility] Body temperature 2022-04-06 14:41:00 37 [facility] Body height 2022-04-06 14:41:00 160 cm [facility] Body weight 2022-04-06 14:41:00 63.504 kg [facility] BMI 2022-04-06 14:41:00 24.80 kg/m2 [facility] Systolic blood pressure 2022-01-20 02:27:00 121 mm[Hg] [facility] Diastolic blood pressure 2022-01-20 02:27:00 75 mm[Hg] [facility] Heart rate 2022-01-20 02:27:00 79 /min [facility] Respiratory rate 2022-01-20 02:27:00 12 /min [facility] Oxygen saturation in Arterial blood by Pulse oximetry 2022-01-20 02:27:00 98 /min [facility] Body temperature 2022-01-19 22:19:00 36.44 [facility] Body weight 2022-01-19 22:19:00 60.328 kg [facility] BMI 2022-01-19 22:19:00 23.56 kg/m2 [facility] Systolic blood pressure 2021-12-30 20:52:00 134 mm[Hg] [facility] Diastolic blood pressure 2021-12-30 20:52:00 76 mm[Hg] [facility] Heart rate 2021-12-30 20:52:00 67 /min [facility] Body temperature 2021-12-30 20:26:00 36.67 Theresa [facility] Oxygen saturation in Arterial blood by Pulse oximetry 2021-12-30 20:26:00 99 /min Elizabeth [facility] Respiratory rate 2021-12-30 16:21:00 18 /min [facility] Body weight 2021-12-30 08:27:00 60.464 kg [facility] BMI 2021-12-30 08:27:00 23.61 kg/m2 [facility] Body height 2021-12-29 01:29:00 160 cm [facility] Procedures Procedure Date / Time Performed Performing Clinician Source TROPONIN I 2023-12-13 03:32:00 Rafael Byrd [facility] XR CHEST 1 VW 2023-12-13 02:18:14 Rafael Byrd [facility] LIPASE 2023-12-13 02:07:00 Rafael Byrd [facility] TROPONIN I 2023-12-13 02:07:00 Rafael Byrd [facility] COMP. METABOLIC PANEL ([id number]) 2023-12-13 02:07:00 Rafael Byrd [facility] CBC WITH DIFF 2023-12-13 02:07:00 Rafael Byrd [facility] XR CHEST 1 VW 2023-11-05 20:09:00 Sulaiman Hawkins [facility] LIPASE 2023-11-05 20:01:00 Sulaiman Hawkins [facility] MAGNESIUM 2023-11-05 20:01:00 Sulaiman Hawkins [facility] TROPONIN I 2023-11-05 20:01:00 [facility] COMP. METABOLIC PANEL ([id number]) 2023-11-05 20:01:00 Sulaiman Hawkins [facility] CBC WITH DIFF 2023-11-05 20:01:00 Sulaiman Hawkins [facility] N-TERMINAL PRO-BNP 2023-11-05 20:01:00 Sulaiman Hawkins [facility] MAGNESIUM 2022-11-11 19:05:00 Jessica [facility] BASIC METABOLIC PANEL (NA, K, CL, CO2, GLUCOSE, BUN, CREATININE, CA) 2022-11-11 19:05:[facility] 2022-11-11 19:05:00 Jessica [facility] CBC WITH DIFF 2022-11-11 19:05:00 Hemant Klein [facility] POCT GLUCOSE (AUTOMATED) 2022-08-11 13:36:00 Arvind Prado [facility] PHOSPHORUS 2022-08-11 10:35:00 Eve [facility] MAGNESIUM 2022-08-11 10:35:00 Eve [facility] AMMONIA, PLASMA 2022-08-11 10:35:00 Jessica Prado [facility] COMP. METABOLIC PANEL ([id number]) 2022-08-11 10:35:00 Eve [facility] CBC WITH DIFF 2022-08-11 10:35:00 Oswald Murphy [facility] POCT GLUCOSE (AUTOMATED) 2022-08-11 02:15:00 Arvind Prado [facility] POCT GLUCOSE (AUTOMATED) 2022-08-10 23:10:00 Arvind Prado [facility] POCT GLUCOSE (AUTOMATED) 2022-08-10 18:20:00 Arvind Prado [facility] POCT GLUCOSE (AUTOMATED) 2022-08-10 14:11:00 Arvind Prado [facility] POCT GLUCOSE (AUTOMATED) 2022-08-10 10:59:00 Gopal Driscoll [facility] COVID-19 (ID NOW RAPID TESTING) 2022-08-10 07:17:00 Rayray Driscoll [facility] LAB ONLY COVID INTERPRETATION 2022-08-10 07:17:00 Rayray Driscoll [facility] HB ECG ROUTINE & RHYTHM STRIP 2022-08-10 06:03:48 Rayray Driscoll [facility] URINALYSIS 2022-08-10 05:46:00 [facility] URINE DRUG (IMMUNOASSAY) - COMPREHENSIVE DRUG SCREEN W/O REFLEX 2022-08-10 05:45:00 Rayray Driscoll [facility] CREATINE KINASE 2022-08-10 05:16:00 [facility] 2022-08-10 05:16:00 [facility] MAGNESIUM 2022-08-10 05:16:00 Rayray Driscoll [facility] TROPONIN I 2022-08-10 05:16:00 Rayray Driscoll [facility] COMP. METABOLIC PANEL ([id number]) 2022-08-10 05:16:00 Rayray Driscoll [facility] ETHANOL 2022-08-10 05:16:00 Rayray Driscoll [facility] CBC WITH DIFF 2022-08-10 05:16:00 Rayray Driscoll [facility] N-TERMINAL PRO-BNP 2022-08-10 05:16:00 Rayray Driscoll [facility] CRITICAL CARE 2022-08-10 04:52:00 Rayray Driscoll [facility] XR CHEST 1 VW 2022-04-06 14:51:50 Diya Chowdhury [facility] LIPASE 2022-04-06 14:42:00 Diya Chowdhury Un [facility] TROPONIN I 2022-04-06 14:42:00 Diya Chowdhury [facility] COMP. METABOLIC PANEL ([id number]) 2022-04-06 14:42:00 Diya Chowdhury [facility] CBC WITH DIFF 2022-04-06 14:42:00 Diya Chowdhury [facility] PROTHROMBIN TIME / INR 2022-04-06 14:42:00 Diya Chowdhury [facility] ACTIVATED PARTIAL THRMPLAS NELDA 2022-04-06 14:42:00 Luciana [facility] LACTIC ACID WHOLE BLOOD 2022-01-20 00:22:00 Leticia Baldwin [facility] URINE DRUG (IMMUNOASSAY) - COMPREHENSIVE DRUG SCREEN 2022-01-19 23:10:00 Leticia Baldwin [facility] URINALYSIS 2022-01-19 23:10:00 Leticia Baldwin [facility] TROPONIN I 2022-01-19 23:00:00 [facility] COMP. METABOLIC PANEL ([id number]) 2022-01-19 23:00:00 Leticia Baldwin [facility] LITHIUM 2022-01-19 23:00:00 [facility] ETHANOL 2022-01-19 23:00:00 [facility] CBC WITH DIFF 2022-01-19 23:00:00 Leticia Baldwin [facility] COVID-19 (ID NOW RAPID TESTING) 2022-01-19 23:00:00 Leticia Baldwin [facility] CT HEAD WO CONTRAST 2022-01-19 22:49:00 Leticia Baldwin [facility] XR CHEST 1 VW 2022-01-19 22:41:[address] [facility] POCT GLUCOSE (AUTOMATED) 2022-01-19 22:25:00 Leticia Baldwin [facility] POCT GLUCOSE (AUTOMATED) 2021-12-30 21:55:00 Arvind Prado [facility] POCT GLUCOSE (AUTOMATED) 2021-12-30 16:21:00 Arvind Prado [facility] POCT GLUCOSE (AUTOMATED) 2021-12-30 12:30:00 Arvind Prado [facility] HEPATIC FUNCTION PANEL (13529) (ALB,T.PRO,BILI T,BU/BC,ALT,AST,ALK PHOS) 2021-12-30 09:28:00 Maira Gaitan [facility] POCT GLUCOSE (AUTOMATED) 2021-12-30 02:11:00 Arvind Prado [facility] POCT GLUCOSE (AUTOMATED) 2021-12-29 21:41:00 Arvind Prado [facility] POCT GLUCOSE (AUTOMATED) 2021-12-29 16:37:00 Arvind Prado [facility] TRANSTHORACIC ECHO (TTE) COMPLETE W/ CONTRAST 2021-12-29 13:05:00 Jessica Prado [facility] POCT GLUCOSE (AUTOMATED) 2021-12-29 12:41:00 Arvind Prado [facility] TROPONIN I 2021-12-29 09:42:00 Eve [facility] TROPONIN I 2021-12-29 04:55:00 Eve [facility] CT HEAD WO CONTRAST 2021-12-28 21:18:22 Poppy Renteria [facility] AMMONIA, PLASMA 2021-12-28 21:00:00 Pia Renteria [facility] COVID-19 (ID NOW RAPID TESTING) 2021-12-28 20:42:00 Pia Renteria [facility] LAB ONLY COVID INTERPRETATION 2021-12-28 20:42:00 Pia Renteria [facility] URINE DRUG (IMMUNOASSAY) - COMPREHENSIVE DRUG SCREEN W/O REFLEX 2021-12-28 20:42:00 Pia Renteria [facility] URINALYSIS 2021-12-28 20:40:00 Pia Renteria [facility] N-TERMINAL PRO-BNP 2021-12-28 20:40:00 Corina Renteria [facility] TROPONIN I 2021-12-28 20:40:00 Pia Renteria [facility] THYROID STIMULATING HORMONE 2021-12-28 20:40:00 Jessica Prado [facility] COMP. METABOLIC PANEL (12613) 2021-12-28 20:40:00 Pia Renteria [facility] LIPID PANEL (39350)(TOTAL CHOLESTEROL, TRIGLYCERIDES, HDL) 2021-12-28 20:40:00 Demetrius Langford [facility] ETHANOL 2021-12-28 20:40:00 Demetrius Langford [facility] CBC WITH DIFF 2021-12-28 20:40:00 Pia Renteria [facility] GLYCOSYLATED HEMOGLOBIN (A1C) 2021-12-28 20:40:00 Jessica Prado [facility] PROTHROMBIN TIME / INR 2021-12-28 20:40:00 Lesly Renteria [facility] XR CHEST 1 VW 2021-12-28 20:16:00 Pia Renteria [facility] HB ECG ROUTINE & RHYTHM STRIP 2021-12-28 20:04:59 Pia Renteria [facility] Encounters Start Date/Time End Date/Time Encounter Type Admission Type Attending [facility] Care Facility Care Department Encounter ID Source 2021-09-17 16:45:00 Inpatient [facility] [id number] [facility] 2020-06-06 16:07:00 Inpatient [facility] [id number] [facility] 2020-06-06 06:20:00 Inpatient [facility] [id number] [facility] 2020-06-05 19:35:00 Inpatient [facility] [id number] [facility] 2020-05-23 19:53:00 Inpatient [facility] [id number] [facility] 2020-05-23 19:53:00 Inpatient [facility] [id number] [facility] 2023-12-12 20:44:00 2023-12-13 00:22:00 Emergency Rafael Byrd [facility] 1.2.840.114 350.1.13.10 4.2.7.2.686 [id number] [facility] 2023-11-05 14:54:00 2023-11-05 16:27:00 Emergency Sulaiman Hawkins [facility] 1.2.840.114 350.1.13.10 4.2.7.2.686 [id number] [facility] 2022-11-11 13:50:00 2022-11-11 16:07:00 Emergency X HEMANT KLEIN [facility] ERT [id number] [facility] 2022-11-11 13:50:00 2022-11-11 16:07:00 Emergency Hemant Klein [facility] 1.2.840.114 350.1.13.10 4.2.7.2.686 [id number] [facility] 2022-10-14 20:59:00 2022-10-14 20:59:00 Emergency [facility] [id number] [facility] 2022-10-14 20:59:00 2022-10-14 20:59:00 Emergency Emergency Pan Pinto [facility] [id number] [facility] 2022-08-09 22:59:00 2022-08-11 13:02:00 Outpatient X JESSICA PRADO [facility] [place] [id number] [facility] 2022-08-09 22:59:00 2022-08-11 13:02:00 Emergency Mukund DriscollJessica Avilez [facility] 1.2.840.114 350.1.13.10 4.2.7.2.686 [id number] [facility] 2022-04-06 09:38:00 2022-04-06 11:42:00 Emergency X DIYA CHOWDHURY [facility] ERT [id number] [facility] 2022-04-06 09:38:00 2022-04-06 11:42:00 Emergency Toddjose l Diya [facility] 1.2.840.114 350.1.13.10 4.2.7.2.686 [id number] [facility] 2022-03-07 12:38:00 2022-03-07 12:38:00 Emergency [facility] [id number] [facility] 2022-03-07 12:38:00 2022-03-07 12:38:00 Emergency Emergency Fidel Cuellar [facility] [id number] [facility] 2022-01-19 17:18:00 2022-01-19 22:00:00 Emergency X DIRK YARBROUGH [facility] ERT [id number] [facility] 2022-01-19 17:18:00 2022-01-19 22:00:00 Emergency Nicolasa Leticia Dirk Sutton [facility] 1.2.840.114 350.1.13.10 4.2.7.2.686 [id number] [facility] 2021-12-31 00:00:00 2021-12-31 00:00:00 Transition of Care Bandar Faye MIKMarlon MASSIEL NAVARRO 1.2.840.114 350.1.13.10 4.2.7.2.686 [id number] [facility] 2021-12-28 14:53:00 2021-12-30 17:42:00 Inpatient X JESSICA PRADO [facility] [place] [id number] [facility] 2021-12-28 14:53:00 2021-12-30 17:42:00 Hospital Encounter Pia Renteria Jelani [facility] 1.2.840.114 350.1.13.10 4.2.7.2.686 [id number] [facility] 2021-09-17 16:47:00 2021-09-17 16:47:00 Emergency [facility] [id number] [facility] 2020-06-06 16:07:00 2020-06-06 16:07:00 Emergency [facility] [id number] [facility] Results Test Description Test Time Test Comments Results Result Co mments Source [facility] K8930-03-28 02:57:27* Test Item Value Reference Range Interpretation Comme nts TROPONIN I (test code = 9509281138) 0.003 ng/mL <=0.034 JUAN ALBERTO (test code [...] of biotin. Lab Interpretation (test code = 24353-7) Normal [facility]. METABOLIC PANEL (09537)2023-12-13 02:46:25* Test Item Value Reference Range Interpretation Comme nts NA (test code = 4183005832) 144 mmol/L 135-145 K (test code = 7238457919) 3.9 mmol/L 3.5-5.0 CL (test code = 2942950530) 110 mmol/L 98-108 H CO2 TOTAL (test code = 7443710146) 20 mmol/L 23-31 L AGAP (test code = 3506803903) 14 2-16 BUN (test code = 1122665640) 13 mg/dL 7-23 GLUCOSE (test code = 9174076607) 163 mg/dL 70-110 H CREATININE (test code = 2160-0) 0.63 mg/dL 0.60-1.25 TOTAL BILI (test code = 1611001156) 0.3 mg/dL 0.1-1.1 CALCIUM (test code = 9490323087) 9.0 mg/dL 8.6-10.6 T PROTEIN (test code = 7532429339) 7.2 g/dL 6.3-8.2 ALBUMIN (test code = 1889895583) 4.1 g/dL 3.5-5.0 ALK PHOS (test code = 8591365333) 129 U/L 34-122 H ALTv (test code = 1742-6) 15 U/L 5-50 AST(SGOT) (test code = 6938920698) 34 U/L 13-40 eGFR (test code = 45979-0) 113.7 mL/min/1.73m2 CKD-EPI eGFR (2020). Assuming creatinine has been stable day-to-day for at least three months, the eGFR indicates Category G1 (>= 90 mL/min/1.73 m2) Lab Interpretation (test code = 91643-7) [facility]normal [facility], [id number] 02:45:25* Test Item Value Reference Range Interpretation Comme nts LIPASE (test code = 4410943512) 47 U/L 0-220 Lab Interpretation (test cod e = 90386-6) [facility] 1 [id number] 02:40:35History: chest pain . Exam: XR CHEST 1 VW Date: 12/12/2023 9:15 PM Ordering provider: RAFAEL BYRD Technical quality: Adequate Comparison: 11/05/2023. Findings: Frontal view of the chest is obtained. The cardiac silhouette is normal in size. No evidence of infiltrate,pleural effusion, CHF, or pneumothorax.[facility] [id number] 02:33:48* Test Item Value Reference Range Interpretation [...] 33.2 g/dL 31.2-35.0 RDW-SD (test code = 65519-0) 54.4 fL 38.5-51.6 H RDW-CV (test code = 788-0) 15.9 % 12.1-15.4 H PLT (test code = 777-3) 318 150-328 MPV (test code = 25321-5) 8.5 fL 9.8-13.0 L NRBC/100 WBC (test code = 3831351184) 0.0 0.0-10.0 NRBC x10^3 (test code = 8945218222) See_Comment [Automated messa ge] The system which generated this result transmitted reference range: 10*3/?L. The reference range was not used to interpret this result as normal/abnormal. GRAN MAT (NEUT) % (test code = 770-8) 50.1 % IMM GRAN % (test code = 0765003618) 0.40 % LYMPH % (test code = 736-9) 37.6 % MONO % (test code = 5905-5) 6.8 % EOS % (test code = 713-8) 4.1 % BASO % (test code = 706-2) 1.0 % GRAN MAT x10^3(ANC) (test code = 0206812874) 3.66 10*3/uL 1.99-6.95 IMM GRAN x10^3 (test code = 2658982803) 0.03 10*3/uL 0.00-0.06 LYMPH x10^3 (test code = 731-0) 2.75 10*3/uL 1.09-3.23 MONO x10^3 (test code = 742-7) 0.50 10*3/uL 0.36-1.02 EOS x10^3 (test code = 711-2) 0.30 10*3/uL 0.06-0.53 BASO x10^3 (test code = 704-7) 0.07 10*3/uL 0.01-0.09 Lab Interpretation (test code = 00641-2) [facility] 1 [id number] 20:15:30HISTORY: Chest pain. TECHNIQUE: Portable AP view of the chest is obtained. Comparison is beingmade with 04/06/2022 study. FINDINGS: No acute pneumonia. No pneumothorax or pleural effusion orpulmonarycongestion detected. Cardiac size is within normal limits.Prominent osteophytes are seen along right left vertebral margins at middleand lower thoracic spines. 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 [facility] (NA, K, CL, CO2, GLUCOSE, BUN, CREATININE, CA)2022-11-11 19:41:47* Test Item Value Reference Range Interpretation Comme nts NA (test code = 0025422706) 138 mmol/L 135-145 K (test code = 9837879380) 4.8 mmol/L 3.5-5.0 CL (test code = 6085170040) 103 mmol/L 98-108 CO2 TOTAL (test code = 1144698543) 26 mmol/L 23-31 AGAP (test code = 6417666761) 9 2-16 BUN (test code = 5522194970) 17 mg/dL 7-23 GLUCOSE (test code = 5628026359) 219 mg/dL 70-110 H CREATININE (test code = 1080288874) 0.72 mg/dL 0.60-1.25 CALCIUM (test code = 2838268157) 10.0 mg/dL 8.6-10.6 eGFR (test code = 8854193598) 114.6 mL/min/1.73m2 JUAN ALBERTO (test code = [...] imaging tests). Lab Interpretation (test code = 12546-8) Abnormal [facility]2023-[facility]-23 19:41:47* Test Item Value Reference Range Interpretation Comme nts MAGNESIUM (test code = 0704857611) 1.8 mg/dL 1.7-2.4 Lab Interpretation (test cod e = 77208-7) Normal [facility]CB WITH [id number] 19:25:26* Test Item Value Reference Range Interpretation Comme nts WBC (test code = 6690-2) 6.82 See_Comment [Automated [employer]] The system which generated this result transmitted reference range: 4.20 - 10.70 10*3/?L. The reference range was not used to interpret this result as normal/abnormal. RBC (test code = 789-8) 4.98 See_Comment [Automated [employer]] The system which generated this result [...] 33.9 g/dL 31.2-35.0 RDW-SD (test code = 27709-8) 46.0 fL 38.5-51.6 RDW-CV (test code = 788-0) 13.5 % 12.1-15.4 PLT (test code = 777-3) 237 See_Comment [Automated [employer]] The system which generated this result transmitted reference range: 150 - 328 10*3/?L. The reference range was not used to interpret this result as normal/abnormal. MPV (test code = 56191-6) 8.9 fL 9.8-13.0 L NRBC/100 WBC (test code = 8612998174) 0.0 See_Comment [Automated me ssage] The system which generated this result transmitted reference range: 0.0 - 10.0 /100 WBCs. The reference range was not used to interpret this result as normal/abnormal. NRBC x10^3 (test code = 0588968903) See_Comment [Automated messa ge] The system which generated this result transmitted reference range: 10*3/?L. The reference range was not used to interpret this result as normal/abnormal. GRAN MAT (NEUT) % (test code = 770-8) 71.2 % IMM GRAN % (test code = 4309328825) 0.30 % LYMPH % (test code = 736-9) 18.2 % MONO % (test code = 5905-5) 8.4 % EOS % (test code = 713-8) 1.0 % BASO % (test code = 706-2) 0.9 % GRAN MAT x10^3(ANC) (test code = 3042667302) 4.86 10*3/uL 1.99-6.95 IMM GRAN x10^3 (test code = 5997212319) 0.00-0.06 LYMPH x10^3 (test code = 731-0) 1.24 10*3/uL 1.09-3.23 MONO x10^3 (test code = 742-7) 0.57 10*3/uL 0.36-1.02 EOS x10^3 (test code = 711-2) 0.07 10*3/uL 0.06-0.53 BASO x10^3 (test code = 704-7) 0.06 10*3/uL 0.01-0.09 Lab Interpretation (test code = 94819-1) Abnormal [facility], Urinalysis Rflx Cult/[id number] 22:20:00* Test Item Value Reference Range Interpretation Comme nts Color,Urine (test code = UCOL) Yellow Yellow Clarity,Urine (test code = UCLAR) Clear Clear Ph, Urine (test code = UPH) 7.0 5.0-9.0 N Specific [place],Urine (test code = USG) 1.020 1.005-1.030 N [...] code = ULEU) Negative mg/dL Negative Drug Screen,[id number] 22:20:00* Test Item Value Reference Range Interpretation [...] UPROP) Negative Negative Complete Blood Count Auto [id number] 21:21:00* Test Item Value Reference Range Interpretation [...] code = NRBCP) 0 % Comprehensive Metabolic [id number] 21:21:00* Test Item Value Reference Range Interpretation [...] a race coefficient. Additional information canbe found at:[email or web address] 5.pdf ([email or web address]) [Automated message] The system [...] = ALP) 134 U/L 46-116 H Ethanol [id number] 21:21:00* Test Item Value Reference Range Interpretation Comme nts Ethanol (test code = ETOH) < 3 mg/dL The pharmacologi yudy response to blood alcohol levels mayvary from individual to individual. The fatal concentrationhas been reported to be >400mg/dL. POCT GLUCOSE (AUTOMATED)2022-08-11 13:40:35* Test Item Value Reference Range Interpretation Comme nts POCT GLU (test code = 9671376038) 121 mg/dL 70-110 H Lab Interpretation (test cod e = 05655-9) Abnormal [facility] GLUCOSE (AUTOMATED)2022-08-11 02:18:58* Test Item Value Reference Range Interpretation Comme nts POCT GLU (test code = 9113295552) 183 mg/dL 70-110 H Lab Interpretation (test cod e = 39900-3) Abnormal [facility] GLUCOSE (AUTOMATED)2022-08-10 23:16:11* Test Item Value Reference Range Interpretation Comme nts POCT GLU (test code = 7683338169) 176 mg/dL 70-110 H Lab Interpretation (test cod e = 48995-3) Abnormal [facility] GLUCOSE (AUTOMATED)2022-08-10 18:22:51* Test Item Value Reference Range Interpretation Comme nts POCT GLU (test code = 1946839629) 165 mg/dL 70-110 H Lab Interpretation (test cod e = 74811-6) Abnormal [facility] GLUCOSE (AUTOMATED)2022-08-10 14:18:05* Test Item Value Reference Range Interpretation Comme nts POCT GLU (test code = 4380996649) 138 mg/dL 70-110 H Lab Interpretation (test cod e = 34825-0) Abnormal [facility] GLUCOSE (AUTOMATED)2022-08-10 11:01:21* Test Item Value Reference Range Interpretation Comme nts POCT GLU (test code = 9788781750) 143 mg/dL 70-110 H Lab Interpretation (test cod e = 54123-1) Abnormal [facility]TROP[facility] [id number] 06:51:18* Test Item Value Reference Range Interpretation Comme nts TROPONIN I (test code = 0697468343) 0.008 ng/mL <=0.034 JUAN ALBERTO (test code [...] of biotin. Lab Interpretation (test code = 18294-7) Normal [facility] HospitalN-TERMINAL [id number] 06:47:37* Test Item Value Reference Range Interpretation Comme nts NT-proBNP (test code = 2338631910) 37 pg/mL <=125 JUAN ALBERTO (test code = JUAN ALBERTO) Biotin has been reported to cause a negative bias, interpret results relative to patient's use of biotin. 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 METABOLIC PANEL (31065)2022-08-10 06:19:15* Test Item Value Reference Range Interpretation Comme nts NA (test code = 4841602093) 135 mmol/L 135-145 K (test code = 2265108486) 4.3 mmol/L 3.5-5.0 CL (test code = 3441032186) 98 mmol/L 98-108 CO2 TOTAL (test code = 6073573992) 30 mmol/L 23-31 AGAP (test code = 6680622581) 7 2-16 BUN (test code = 4351706493) 11 mg/dL 7-23 GLUCOSE (test code = 4630879541) 153 mg/dL 70-110 H CREATININE (test code = 7663372103) 0.77 mg/dL 0.60-1.25 TOTAL BILI (test code = 0642850224) 0.9 mg/dL 0.1-1.1 CALCIUM (test code = 0670931438) 10.0 mg/dL 8.6-10.6 T PROTEIN (test code = 3861467618) 7.7 g/dL 6.3-8.2 ALBUMIN (test code = 3921739279) 4.6 g/dL 3.5-5.0 ALK PHOS (test code = 6627231147) 92 U/L 34-122 ALTv (test code = 1742-6) 35 U/L 5-50 AST(SGOT) (test code = 8909742753) 42 U/L 13-40 H eGFR (test code = 5783218899) 106.1 mL/min/1.73m2 JUAN ALBERTO (test code = [...] imaging tests). Lab Interpretation (test code = 98762-7) Abnormal [facility]2023-02-19 06:19:15* Test Item Value Reference Range Interpretation Comme nts MAGNESIUM (test code = 7095919659) 2.2 mg/dL 1.7-2.4 Lab Interpretation (test cod e = 96857-3) Normal [facility]LIPASE2023-02-19 06:18:55* Test Item Value Reference Range Interpretation Comme nts LIPASE (test code = 5890342691) 18 U/L 0-220 Lab Interpretation (test cod e = 87570-4) Normal [facility] HospitalCREATINE [id number] 06:18:55* Test Item Value Reference Range Interpretation Comme nts CK (test code = 7985112354) 174 U/L 33-194 Lab Interpretation (test cod e = 01982-4) Normal [facility] WITH [id number] 06:02:35* Test Item Value Reference Range Interpretation [...] 32.4 g/dL 31.2-35.0 RDW-SD (test code = 17411-5) 50.2 fL 38.5-51.6 RDW-CV (test code = 788-0) 14.3 % 12.1-15.4 PLT (test code = 777-3) 241 See_Comment [Automated messa ge] The system which generated this result transmitted reference range: 150 - 328 10*3/?L. The reference range was not used to interpret this result as normal/abnormal. MPV (test code = 40927-6) 8.6 fL 9.8-13.0 L NRBC/100 WBC (test code = 1412720877) 0.0 See_Comment [Automated me ssage] The system which generated this result transmitted reference range: 0.0 - 10.0 /100 WBCs. The reference range was not used to interpret this result as normal/abnormal. NRBC x10^3 (test code = 9996402722) See_Comment [Automated messa ge] The system which generated this result transmitted reference range: 10*3/?L. The reference range was not used to interpret this result as normal/abnormal. GRAN MAT (NEUT) % (test code = 770-8) 63.9 % IMM GRAN % (test code = 4871312462) 0.50 % LYMPH % (test code = 736-9) 17.6 % MONO % (test code = 5905-5) 16.5 % EOS % (test code = 713-8) 0.7 % BASO % (test code = 706-2) 0.8 % GRAN MAT x10^3(ANC) (test code = 3064456862) 4.79 10*3/uL 1.99-6.95 IMM GRAN x10^3 (test code = 0923931541) 0.04 10*3/uL 0.00-0.06 LYMPH x10^3 (test code = 731-0) 1.32 10*3/uL 1.09-3.23 MONO x10^3 (test code = 742-7) 1.24 10*3/uL 0.36-1.02 H EOS x10^3 (test code = 711-2) 0.05 10*3/uL 0.06-0.53 L BASO x10^3 (test code = 704-7) 0.06 10*3/uL 0.01-0.09 Lab Interpretation (test code = 34504-9) Abnormal [facility] [id number] 15:15:32* Test Item Value Reference Range Interpretation Comments TROPONIN I (test code = 9897412045) 0.007 ng/mL See_Comment [Automated message] The system [...] of biotin. Lab Interpretation (test code = 59501-7) Normal [facility] HospitalaPTT2022-10-16 15:08:29* Test Item Value Reference Range Interpretation Comme [facility] APTT Patient (test code = 3173-2) See_Comment [Automated message] The system which generated this result transmitted reference range: 23 - 38 Seconds. The reference range was not used to interpret this result as normal/abnormal. JUAN ALBERTO (test code = JUAN ALBERTO) The [facility] patient population mean normal value for aPTT is 30 seconds. Lab Interpretation (test code = 70319-9) Normal [facility] HospitalPROTHROMBIN TIME / [id number] 15:06:28* Test Item Value Reference Range Interpretation Comme [facility] PROTIME PATIENT (test code = 5964-2) See_Comment [Automated messa ge] The system which generated this result transmitted reference range: 12.0 - 14.7 Seconds. The reference range was not used to interpret this result as normal/abnormal. INR (test code = 6301-6) Normal INR <1.1; Warfarin Therapeutic range 2.0 to 3.0 or 2.5 to 3.5, depending upon the indications. Lab Interpretation (test code = 88014-7) Normal [facility] HospitalCOMP. METABOLIC PANEL (69720)2022-04-06 15:03:31* Test Item Value Reference Range Interpretation Comme [facility] NA (test code = 7179343430) 136 mmol/L 135-145 K (test code = 6298185305) 5.0 mmol/L 3.5-5 CL (test code = 7939444762) 104 mmol/L 98-108 CO2 TOTAL (test code = 2215489043) 21 mmol/L 23-31 L AGAP (test code = 0477798485) 2-16 BUN (test code = 7579738227) 11 mg/dL 7-23 GLUCOSE (test code = 7798896931) 162 mg/dL 70-110 H CREATININE (test code = 6321506896) 0.52 mg/dL 0.6-1.25 L TOTAL BILI (test code = 9099145232) 1.0 mg/dL 0.1-1.1 CALCIUM (test code = 2243082615) 9.3 mg/dL 8.6-10.6 T PROTEIN (test code = 1957622115) 7.4 g/dL 6.3-8.2 ALBUMIN (test code = 9700314724) 4.4 g/dL 3.5-5 ALK PHOS (test code = 2703735610) 134 U/L 34-122 H ALTv (test code = 1742-6) 17 U/L 5-50 AST(SGOT) (test code = 5901273535) 38 U/L 13-40 eGFR (test code = 2848066127) mL/min/1.73m2 JUAN ALBERTO (test code = JUAN [...] imaging tests). Lab Interpretation (test code = 83708-4) Abnormal [facility]LIP[facility], [id number] 15:03:31* Test Item Value Reference Range Interpretation Comme nts LIPASE (test code = 3908198039) 29 U/L 0-220 Lab Interpretation (test cod e = 60797-8) Normal [facility] WITH [id number] 14:51:49* Test Item Value Reference Range Interpretation Comme nts WBC (test code = 6690-2) See_Comment [[employer]ated [employer]] The system which generated this result transmitted reference range: 4.20 - 10.70 10*3/?L. The reference range was not used to interpret this result as normal/abnormal. RBC (test code = 789-8) See_Comment [Automated [employer]] The system which generated this result [...] 34.0 g/dL 31.2-35 RDW-SD (test code = 45778-6) 45.9 fL 38.5-51.6 RDW-CV (test code = 788-0) 13.3 % 12.1-15.4 PLT (test code = 777-3) See_Comment [Automated [employer]] The system which generated this result transmitted reference range: 150 - 328 10*3/?L. The reference range was not used to interpret this result as normal/abnormal. MPV (test code = 25639-4) 8.4 fL 9.8-13 L NRBC/100 WBC (test code = [id number]) See_Comment [Automated me ssage] The system which generated this result transmitted reference range: 0.0 - 10.0 /100 WBCs. The reference range was not used to interpret this result as normal/abnormal. NRBC x10^3 (test code = [id number]) See_Comment [Automated messa ge] The system which generated this result transmitted reference range: 10*3/?L. The reference range was not used to interpret this result as normal/abnormal. GRAN MAT (NEUT) % (test code = 770-8) 63.0 % IMM GRAN % (test code = [id number]) 0.50 % LYMPH % (test code = 736-9) 25.2 % MONO % (test code = 5905-5) 9.8 % EOS % (test code = 713-8) 0.3 % BASO % (test code = 706-2) 1.2 % GRAN MAT x10^3(ANC) (test code = 5104903103) 3.73 10*3/uL 1.99-6.95 IMM GRAN x10^3 (test code = [id number]) 0.03 10*3/uL 0-0.06 LYMPH x10^3 (test code = 731-0) 1.49 10*3/uL 1.09-3.23 MONO x10^3 (test code = 742-7) 0.58 10*3/uL 0.36-1.02 EOS x10^3 (test code = 711-2) 0.06-0.53 L BASO x10^3 (test code = 704-7) 0.07 10*3/uL 0.01-0.09 Lab Interpretation (test code = 23468-0) [facility] R[facility] Cult/Cazaz1440-10-95 13:53:00* Test Item Value Reference Range Interpretation Comme nts Color,Urine (test code = UCOL) Yellow Yellow Clarity,Urine (test code = UCLAR) Cloudy Clear A Ph, Urine (test code = UPH) 7.5 5.0-9.0 N Specific [place],Urine (test code = USG) 1.025 1.005-1.030 N [...] = ULEU) Negative mg/dL Negative UF REFLEXDrug Screen,Thjkv0225-18-75 13:53:00* Test Item Value Reference Range Interpretation [...] UPROP) Negative Negative Complete Blood Count Auto Ylga0127-13-14 12:58:00* Test Item Value Reference Range Interpretation [...] = NRBCP) 0 % Coronavirus PCR, COVID19 Mgyly1847-80-31 12:58:00* Test Item Value Reference Range Interpretation Comme nts Coronavirus PCR, COVID19 Rapid (test code = SARSCOV2) Coronavirus PCR, COVID19 Rapid (test code = OEGUNEY18.1) Reference Range: Negative SARS-CoV-2 PCR Result: (test code = SARS-CoV-2 PCR Result:) Negative by RT-PCR COVID-19 Status: AsymptomaticComprehensive Metabolic Tkulk8611-34-01 12:58:00* Test Item Value Reference Range Interpretation [...] = ALP) 144 U/L 46-116 H Ethanol Iilxz5361-54-09 12:58:00* Test Item Value Reference Range Interpretation Comme nts Ethanol (test code = ETOH) < 3 mg/dL The pharmacologi yudy response to blood alcohol levels mayvary from individual to individual. The fatal concentrationhas been reported to be >400mg/dL. [id number] 01:47:56* Test Item Value Reference Range Interpretation Comme nts Selmer (test code = 9224261062) 0.7 mmol/L 0.6-1.2 JUAN ALBERTO (test code = JUAN ALBERTO) Toxic Range: ? Greater than 1.2 mmol/L Lab Interpretation (test code = 32420-4) [facility] P1755-65-95 00:26:53* Test Item Value Reference Range Interpretation Comments TROPONIN I (test code = 4936731763) 0.002 ng/mL See_Comment [Automated message] The system [...] of biotin. 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 METABOLIC PANEL (35967)2022-01-20 00:16:16* Test Item Value Reference Range Interpretation Comme nts NA (test code = 5954875206) 137 mmol/L 135-145 K (test code = 8787239739) 4.5 mmol/L 3.5-5 CL (test code = 3972750491) 103 mmol/L 98-108 CO2 TOTAL (test code = 4185027495) 26 mmol/L 23-31 AGAP (test code = 9322717960) 2-16 BUN (test code = 7262474077) 10 mg/dL 7-23 GLUCOSE (test code = 9394195759) 121 mg/dL 70-110 H CREATININE (test code = 8804126048) 0.65 mg/dL 0.6-1.25 TOTAL BILI (test code = 0715321632) 0.8 mg/dL 0.1-1.1 CALCIUM (test code = 0804812660) 11.4 mg/dL 8.6-10.6 H T PROTEIN (test code = 3507249446) 7.2 g/dL 6.3-8.2 ALBUMIN (test code = 6725503574) 4.6 g/dL 3.5-5 ALK PHOS (test code = 8496248792) 112 U/L 34-122 ALTv (test code = 1742-6) 19 U/L 5-50 AST(SGOT) (test code = 6230378861) 26 U/L 13-40 eGFR (test code = 3802199274) mL/min/1.73m2 JUAN ALBERTO (test code = JUAN [...] imaging tests). Lab Interpretation (test code = 30056-1) Abnormal [facility] WITH CDBH1588-02-31 23:43:54* Test Item Value Reference Range Interpretation Comme nts WBC (test code = 6690-2) See_Comment [Automated [employer]] The system which generated this result transmitted reference range: 4.20 - 10.70 10*3/?L. The reference range was not used to interpret this result as normal/abnormal. RBC (test code = 789-8) See_Comment [Automated [employer]] The system which generated this result [...] 34.4 g/dL 31.2-35 RDW-SD (test code = 96313-1) 44.0 fL 38.5-51.6 RDW-CV (test code = 788-0) 12.6 % 12.1-15.4 PLT (test code = 777-3) See_Comment [Automated [employer]] The system which generated this result transmitted reference range: 150 - 328 10*3/?L. The reference range was not used to interpret this result as normal/abnormal. MPV (test code = 42937-9) 9.1 fL 9.8-13 L NRBC/100 WBC (test code = 6016840611) See_Comment [Automated EARTH[employer]ORY ssage] The system which generated this result transmitted reference range: 0.0 - 10.0 /100 WBCs. The reference range was not used to interpret this result as normal/abnormal. NRBC x10^3 (test code = 7503025765) See_Comment [Automated [employer]] The system which generated this result transmitted reference range: 10*3/?L. The reference range was not used to interpret this result as normal/abnormal. GRAN MAT (NEUT) % (test code = 770-8) 69.8 % IMM GRAN % (test code = 4326752326) 0.40 % LYMPH % (test code = 736-9) 18.0 % MONO % (test code = 5905-5) 10.9 % EOS % (test code = 713-8) 0.1 % BASO % (test code = 706-2) 0.8 % GRAN MAT x10^3(ANC) (test code = 3849032658) 5.58 10*3/uL 1.99-6.95 IMM GRAN x10^3 (test code = 4955740078) 0.03 10*3/uL 0-0.06 LYMPH x10^3 (test code = 731-0) 1.44 10*3/uL 1.09-3.23 MONO x10^3 (test code = 742-7) 0.87 10*3/uL 0.36-1.02 EOS x10^3 (test code = 711-2) 0.06-0.53 L BASO x10^3 (test code = 704-7) 0.06 10*3/uL 0.01-0.09 Lab Interpretation (test code = 62800-5) Abnormal [facility] GLUCOSE (AUTOMATED)2022-01-19 22:27:41* Test Item Value Reference Range Interpretation Comme nts POCT GLU (test code = 4869120554) 123 mg/dL 70-110 H Lab Interpretation (test cod e = 85138-2) Abnormal [facility] GLUCOSE (AUTOMATED)2021-12-30 22:08:16* Test Item Value Reference Range Interpretation Comme nts POCT GLU (test code = 4493601776) 167 mg/dL 70-110 H Lab Interpretation (test cod e = 36628-9) Abnormal [facility] GLUCOSE (AUTOMATED)2021-12-30 16:50:40* Test Item Value Reference Range Interpretation Comme nts POCT GLU (test code = 4940301196) 154 mg/dL 70-110 H Lab Interpretation (test cod e = 48561-3) Abnormal [facility] GLUCOSE (AUTOMATED)2021-12-30 12:38:43* Test Item Value Reference Range Interpretation Comme nts POCT GLU (test code = 2145727886) 164 mg/dL 70-110 H Lab Interpretation (test cod e = 78087-0) Abnormal [facility] GLUCOSE (AUTOMATED)2021-12-30 02:14:58* Test Item Value Reference Range Interpretation Comme nts POCT GLU (test code = 9853458618) 220 mg/dL 70-110 H Lab Interpretation (test cod e = 27824-7) Abnormal [facility] GLUCOSE (AUTOMATED)2021-12-29 21:50:02* Test Item Value Reference Range Interpretation Comme nts POCT GLU (test code = 7343319205) 191 mg/dL 70-110 H Lab Interpretation (test cod e = 09228-4) Abnormal [facility] GLUCOSE (AUTOMATED)2021-12-29 20:15:01* Test Item Value Reference Range Interpretation Comme nts POCT GLU (test code = 9799556298) 163 mg/dL 70-110 H Lab Interpretation (test cod e = 97500-4) Abnormal [facility] HospitalTransthoracic echo (TTE)2021-12-29 19:12:22* Test Item Value Reference Range Interpretation Comme nts Height (test code = 0158883469) in Weight (test code = 6200472358) lbs Systolic BP (test code = 8645548042) mmHg Diastolic BP (test code = 4437138137) mmHg Heart Rate (test code = 8177640090) bpm BSA (test code = 5710427117) 1.62 m2 Ao root annulus (test code = 1148689711) 2.45 cm Ao root diam (test code = 2605194929) 2.45 cm Aortic root (test code = 1147822616) 2.45 cm ACS (test code = 3842306252) 1.66 cm LA size (test code = 2457448383) 3.2 cm LVOT diameter (test code = 7255349157) 1.95 cm LVIDD (test code = 9836284282) 3.60 cm IVS (test code = 1792598869) 0.94 cm Interventricular Septum Diastolic Thickness by 2D (test code = 6126629) 0.94 cm LVPWD (test code = 4275320367) 0.80 cm PW (test code = 8329968049) 0.80 cm 0.6-1.1 EF(Teich) (test code = 7806741308) 52.80 % LVIDS (test code = 2702758067) 2.60 cm FS (test code = 9103035850) 27 % EF - 2D (test code = 66892104) 52.80 % LAV(MOD-sp4) (test code = 9593961604) 16.80 mL MV Peak E Jovany (test code = 7774355831) 46.1 cm/s E wave decelartion time (test code = 9196059244) 0.31 s MV Peak A Jovany (test code = 2085627632) 58.1 cm/s E/A ratio (test code = 0381653309) ratio MV E/e' septal (test code = 9959926346) 5.7 cm/s Tapse (test code = 0997943383) 1.60 cm LVOT stroke volume (test code = 3107088141) 52.10 cm3 LVOT peak jovany (test code = 9216152945) 110.6 cm/s LVOT mn grad (test code = 5650244723) mmHg AV LVOT peak gradient (test code = 0269845525) mmHg LVOT peak VTI (test code = 1446395231) 17.4 cm LV V1 mean (test code = 4296144240) 66.10 cm/s Aortic valve mean velocity (test code = 1015390133) 73.0 cm/s Ao peak jovany (test code = 1424437243) 124.6 cm/s Ao VTI (test code = 3168591075) 18.6 cm AV area by cont VTI (test code = 3972670480) 2.8 cm2 AV area peak jovany (test code = 1007423483) 2.7 cm2 Ao max PG (test code = 3765071260) 6.20 mm[Hg] AV peak gradient (test code = 2718859166) mmHg AV valve area (test code = 7010485530) 2.80 cm2 AV mean gradient (test code = 7299709118) mmHg Radiology Study observation (narrative) (test code = 61642-9) JUAN ALBERTO (test code = JUAN ALBERTO) [...] mL of Lumason ultrasound enhancing agent used. [facility] (AUTOMATED)2021-12-29 12:50:31* Test Item Value Reference Range Interpretation Comme nts POCT GLU (test code = 5970736302) 141 mg/dL 70-110 H Lab Interpretation (test cod e = 33636-2) Abnormal [facility] HospitalTroponin Q0113-80-97 10:38:31* Test Item Value Reference Range Interpretation Comments TROPONIN I (test code = 5482711624) 0.003 ng/mL See_Comment [Automated message] The system [...] of biotin. Lab Interpretation (test code = 41638-3) Normal [facility] HospitalLIPID PANEL (19386)(TOTAL CHOLESTEROL, TRIGLYCERIDES, HDL)2021-12-29 05:56:47* Test Item Value Reference Range Interpretation Comme nts CHOL (test code = 1270547272) 168 mg/dL 120-200 HDL (test code = 0162373353) 102 mg/dL See_Comment [[employer]] The system which generated this result transmitted reference range: >=40. The reference range was not used to interpret this result as normal/abnormal. HDLC RATIO (test code = 0817922601) See_Comment [Automated Project Fix[employer]] The system which generated this result transmitted reference range: <=5.0. The reference range was not used to interpret this result as normal/abnormal. TRIG (test code = 8182301153) 55 mg/dL 30-170 LDL CHOL (test code = 92569-4) 55 mg/dL See_Comment [[employer]] The system which generated this result transmitted reference range: <=160. The reference range was not used to interpret this result as normal/abnormal. VLDL (test code = 5438018554) 11 mg/dL 5-60 Lab Interpretation (test code = 25888-0) Normal [facility] HospitalThyroid Stimulating Hormone (TSH)2021-12-29 05:40:29* Test Item Value Reference Range Interpretation Comme nts TSH (test code = 0811097969) See_Comment Biotin has been reported to cause a negative bias, interpret results relative to patient's use of biotin. [Automated message] The system which generated this result transmitted reference range: 0.45 - 4.70 mIU/L. The reference range was not used to interpret this result as normal/abnormal. Lab Interpretation (test code = 08974-7) Normal [facility] K5078-68-07 05:34:29* Test Item Value Reference Range Interpretation Comments TROPONIN I (test code = 2905588447) 0.006 ng/mL See_Comment [Automated message] The system [...] of biotin. Lab Interpretation (test code = 13861-1) Normal [facility] HospitalETHANOL2022-07-10 04:43:01 ALCOHOL<10mg/dL12/28/2021 11:43 PM [facility] Greater than or equal to 80 mg/dL. NOTE: Whole blood values are approximately 10% to 15% lower than serum and plasma.[facility] Glycosylated Hemoglobin (A1C)2021-12-29 01:51:44* Test Item Value Reference Range Interpretation Comme nts HGB A1C (test code = 4548-4) 6.5 % 4-5.7 H JUAN ALBERTO (test code = JUAN ALBERTO) Reference RangesNormal: <5.7%Prediabetes: 5.7 - 6.4%Diabetes: > 6.5% Lab Interpretation (test code = 29587-6) [facility] [id number] 21:26:50* Test Item Value Reference Range Interpretation Comments TROPONIN I (test code = 6380557186) 0.002 ng/mL See_Comment [Automated message] The system [...] of biotin. Lab Interpretation (test code = 01759-7) Normal [facility] HospitalN-TERMINAL HYX-HVM1696-72-09 21:23:29* Test Item Value Reference Range Interpretation Comme nts NT-proBNP (test code = 5060381488) 41 pg/mL See_Comment [Automated message] The system which generated this result transmitted reference range: <=125. The reference range was not used to interpret this result as normal/abnormal. JUAN ALBERTO (test code = JUAN ALBERTO) Biotin has been reported to cause a negative bias, interpret results relative to patient's use of biotin. Lab Interpretation (test code = 13980-7) Normal [facility] HospitalAMMONIA, EPAMKH6889-20-04 21:20:38* Test Item Value Reference Range Interpretation Comme nts AMMONIA (test code = 1156303006) 9-33 L Slight hemolysis Lab Interpretation (test code = 35131-1) Abnormal [facility] HospitalCOMP. METABOLIC PANEL (46248)2021-12-28 21:08:48* Test Item Value Reference Range Interpretation Comme nts NA (test code = 3278241179) 137 mmol/L 135-145 K (test code = 3648367511) 4.5 mmol/L 3.5-5 CL (test code = 6138201718) 97 mmol/L 98-108 L CO2 TOTAL (test code = 9180230394) 29 mmol/L 23-31 AGAP (test code = 3025475035) 2-16 BUN (test code = 8504639899) 10 mg/dL 7-23 GLUCOSE (test code = 4525290102) 188 mg/dL 70-110 H CREATININE (test code = 1060724605) 0.58 mg/dL 0.6-1.25 L TOTAL BILI (test code = 3956464314) 0.8 mg/dL 0.1-1.1 CALCIUM (test code = 1289748278) 10.5 mg/dL 8.6-10.6 T PROTEIN (test code = 4183193187) 7.6 g/dL 6.3-8.2 ALBUMIN (test code = 1143372059) 4.5 g/dL 3.5-5 ALK PHOS (test code = 1643912915) 107 U/L 34-122 ALTv (test code = 1742-6) 66 U/L 5-50 H AST(SGOT) (test code = 3143204332) 96 U/L 13-40 H eGFR (test code = 4918517857) mL/min/1.73m2 JUAN ALBERTO (test code = JUAN ALBRETO) Association of Glomerular Filtration Rate (GFR) and [...] imaging tests). Lab Interpretation (test code = 11218-6) Abnormal [facility] HospitalPROTHROMBIN TIME / [id number] 21:01:25* Test Item Value Reference Range Interpretation Comme nts PROTIME PATIENT (test code = 5964-2) See_Comment [Automated [employer]] The system which generated this result transmitted reference range: 12.0 - 14.7 Seconds. The reference range was not used to interpret this result as normal/abnormal. INR (test code = 6301-6) Normal INR <1.1; Warfarin Therapeutic range 2.0 to 3.0 or 2.5 to 3.5, depending upon the indications. Lab Interpretation (test code = 18344-6) Normal [facility] HospitalCBC WITH [id number] 20:54:03* Test Item Value Reference Range Interpretation Comme nts WBC (test code = 6690-2) See_Comment [Automated [employer]] The system which generated this result transmitted reference range: 4.20 - 10.70 10*3/?L. The reference range was not used to interpret this result as normal/abnormal. RBC (test code = 789-8) See_Comment [Automated [employer]] The system which generated this result [...] 34.2 g/dL 31.2-35 RDW-SD (test code = 41464-6) 47.8 fL 38.5-51.6 RDW-CV (test code = 788-0) 13.3 % 12.1-15.4 PLT (test code = 777-3) See_Comment [Automated [employer]] The system which generated this result transmitted reference range: 150 - 328 10*3/?L. The reference range was not used to interpret this result as normal/abnormal. MPV (test code = 51526-3) 8.6 fL 9.8-13 L NRBC/100 WBC (test code = 5714472844) See_Comment [Automated me ssage] The system which generated this result transmitted reference range: 0.0 - 10.0 /100 WBCs. The reference range was not used to interpret this result as normal/abnormal. NRBC x10^3 (test code = 4306565924) See_Comment [Automated messa ge] The system which generated this result transmitted reference range: 10*3/?L. The reference range was not used to interpret this result as normal/abnormal. GRAN MAT (NEUT) % (test code = 770-8) 64.1 % IMM GRAN % (test code = 2415527863) 0.40 % LYMPH % (test code = 736-9) 16.6 % MONO % (test code = 5905-5) 17.2 % EOS % (test code = 713-8) 0.2 % BASO % (test code = 706-2) 1.5 % GRAN MAT x10^3(ANC) (test code = 8696615604) 3.47 10*3/uL 1.99-6.95 IMM GRAN x10^3 (test code = 5512220570) 0-0.06 LYMPH x10^3 (test code = 731-0) 0.90 10*3/uL 1.09-3.23 L MONO x10^3 (test code = 742-7) 0.93 10*3/uL 0.36-1.02 EOS x10^3 (test code = 711-2) 0.06-0.53 L BASO x10^3 (test code = 704-7) 0.08 10*3/uL 0.01-0.09 Lab Interpretation (test code = 98129-4) Abnormal [facility] HospitalEthanol Qvpkg2361-11-03 21:08:00* Test Item Value Reference Range Interpretation Comme nts Ethanol (test code = ETOH) < 3 mg/dL The pharmacologi yudy response to blood alcohol levels mayvary from individual to individual. The fatal concentrationhas been reported to be >400mg/dL. Complete Blood Count Auto Fdmj0217-33-57 17:33:00* Test Item Value Reference Range Interpretation [...] = NRBCP) 0 % UA, Urinalysis Rflx Cult/Btaac7555-00-31 17:33:00* Test Item Value Reference Range Interpretation Comme nts Color,Urine (test code = UCOL) Dark Yellow Yellow A Clarity,Urine (test code = UCLAR) Clear Clear Ph, Urine (test code = UPH) 6.5 5.0-9.0 N Specific [place],Urine (test code = USG) 1.015 1.005-1.030 N [...] = ULEU) Trace mg/dL Negative A Urine Jkbhtmhcxvb6244-29-49 17:33:00* Test Item Value Reference Range Interpretation Comme nts RBC,Urine (test code = URBCUF) None Seen /HPF 0-2 WBC,Urine (test code = UWBCUF) 0-5 /HPF 0-5 Epithelial Cell,Urine (test code = UECUF) 0-5 /HPF 0-5 Casts,Urine (test code = UCASTUF) None Seen /LPF None Seen Bacteria,Urine (test code = UBACTUF) None Seen /hpf None Seen Drug Screen,Bwmwj3923-05-84 17:33:00* Test Item Value Reference Range Interpretation [...] code = UPROP) Negative Negative Comprehensive Metabolic Uwuzl2869-16-23 17:33:00* Test Item Value Reference Range Interpretation [...] 101 U/L 46-116 N Sars-CoV-2/FLU A/B RSV [id number] 17:31:00* Test Item Value Reference Range Interpretation [...] SARS-CoV-2 PCR Result:) Negative by RT-PCR Drug Screen,Lulmx6781-75-14 17:20:00* Test Item Value Reference Range Interpretation [...] UPROP) Negative Negative Complete Blood Count Auto Cupe4022-30-75 17:14:00* Test Item Value Reference Range Interpretation [...] code = NRBCP) 0 % Comprehensive Metabolic Dpnod3898-23-07 17:14:00* Test Item Value Reference Range Interpretation [...] = ALP) 207 U/L 46-116 H Ethanol Pvttf2986-26-17 17:14:00* Test Item Value Reference Range Interpretation Comme nts Ethanol (test code = ETOH) 192 mg/dL Complete Blood Count Auto Mnqq5069-37-41 20:20:00* Test Item Value Reference Range Interpretation [...] code = NRBCP) 0 % Comprehensive Metabolic Ecruw7098-29-56 20:20:00* Test Item Value Reference Range Interpretation [...] = ALP) 189 U/L 46-116 H Ethanol Lgbfv5341-61-12 20:20:00* Test Item Value Reference Range Interpretation Comme nts Ethanol (test code = ETOH) 10 mg/dL Sars-CoV-2/FLU A/B RSV VUL0182-77-59 20:20:00* Test Item Value Reference Range Interpretation [...] Negative by Nucleic Acid Amplification UA, Urinalysis Pgjqjieabfh1601-11-44 20:20:00* Test Item Value Reference Range Interpretation Comme nts Color,Urine (test code = UCOL) Yellow Y Clarity,Urine (test code = UCLAR) Clear Clear PH,Urine (test code = UPH.XX) 7.0 5.5-8.5 Specific [place],Urine (test code = USG) 1.020 1.005-1.030 N [...] code = ULEU) Negative cells/uL Negative Drug Screen,Aaxmu5803-24-03 20:20:00* Test Item Value Reference Range Interpretation [...] RESULT TO FO LLOW CT head/brain wo [facility] [address] [place] [address] Patient Name: Walt Velazquez Medical Record#: [id number] Address: Homeless City/State/Zip: [place] [address]: Vinnie Navarro MD Insurance: Self Pay /Age/Sex: 1970/50/M Admit/Reg Date: 09/17/[address]: Vinnie Navarro MD Location: [facility]/ PCP: PcpMd KERWIN Jimenez Date of Service: 09/17/21 Order (s): CT head/brain wo con CPT Code: 19550 Report Number: [id number] Reason for Exam: Altered mental status Location [...] steady gait, in no apparent distress, [facility] [employer] 2023-12-12 22:20:05 Pt removed all monitoring equipment [facility] [employer] 2023-12-12 20:33:23 Pt brought in by [place] [employer] for medical clearance. [place] [facility] check pt out on scene but after pt complained of chest pain. [place] [facility] brought pt in for clearance for county. Zeina Albrecht RN [facility] 2023-11-05 16:26:20 Pt discharged with diagnosis of CP. Printed and verbal instructions reviewed with and given to pt. Prescriptions given x 0. Pt verbalized understanding of teaching and recommended follow-up. Denies questions or concerns at this time. Pt ambulatory to holding room to await transportation at discharge. Appears in no apparent distress. No ataxia noted. [facility] Renae Saldivar RN [facility] 2023-11-05 14:56:10 Walt Festus Velazquez Sr. is a 52 year old male arrive via [facility] c/o " throbbing ball in chest" since 0600 has been constant, pt immediately asks for food, Emani Gomez RN [facility]
== END 2024-02-06 21:36 | disposition home or self-care (01) ==
LOC: ER 21:11
DX: R07.9 Chest pain, unspecified (principal); F10.20 Alcohol dependence, uncomplicated
CPT/HCPCS: 99284

== ENCOUNTER 2024-02-07 10:47 | Emergency (ER) | payer SELFPAY ==
--- NOTE | 2024-02-07 11:47 | EDPHYS ---
Physician Documentation [facility] Name: Walt Velazquez Age: 53 yrs Sex: Male : 1970 Arrival Date: 02/07/2024 Time: 10:47 Bed 5 Private MD: ED Physician Deandre Mckeon HPI: 02/06 11:43 This 53 yrs old Male presents to ER via EMS with complaints of Chest Pain. jr8 11:43 Onset: The symptoms/episode began/occurred acutely, today. Associated signs and jr8 symptoms: The patient has no apparent associated signs or symptoms. Modifying factors: The patient symptoms are alleviated by rest, the patient symptoms are aggravated by activity. The patient has experienced similar episodes in the past, multiple times, chronically. The patient has been recently seen at the [facility] Emergency Department, yesterday. Patient stated that he was [place]. Had small bout of chest pain that is now gone. Friend of patient wanted him checked out so called 911. Denies pain at this time. Historical: - Allergies: 10:49 Trazodone; too strong for him; ld1 - PMHx: 10:49 Alcoholism; Bipolar II; Hypertensive disorder; Parkinsons; Seizure; ld1 - PSHx: 10:49 toe amputation; ld1 - Immunization history:: Adult Immunizations up to date. - Infectious Disease History:: Denies. - Social history:: Smoking status: Patient denies any tobacco usage or history of. Patient uses alcohol, on a daily basis. ROS: 11:43 Eyes: Negative for injury, pain, redness, and discharge, ENT: Negative for injury, jr8 pain, and discharge, Neck: Negative for injury, pain, and swelling, Respiratory: Negative for shortness of breath, cough, wheezing, and pleuritic chest pain, Abdomen/GI: Negative for abdominal pain, nausea, vomiting, diarrhea, and constipation, Back: Negative for injury and pain, MS/Extremity: Negative for injury and deformity, Skin: Negative for injury, rash, and discoloration, Neuro: Negative for headache, weakness, numbness, tingling, and seizure, 11:43 Cardiovascular: Positive for chest pain, Negative for edema, orthopnea, palpitations, paroxysmal nocturnal dyspnea, Exam: 11:43 Constitutional: This is a well developed, well nourished patient who is awake, alert, jr8 and in no acute distress. Eyes: Pupils equal round and reactive to light, extra-ocular motions intact. Lids and lashes normal. Conjunctiva and sclera are non-icteric and not injected. Cornea within normal limits. Periorbital areas with no swelling, redness, or edema. Neck: Trachea midline, no thyromegaly or masses palpated, and no cervical lymphadenopathy. Supple, full range of motion without nuchal rigidity, or vertebral point tenderness. No Meningismus. Cardiovascular: Regular rate and rhythm with a normal S1 and S2. No gallops, murmurs, or rubs. Normal PMI, no JVD. No pulse deficits. Respiratory: Lungs have equal breath sounds bilaterally, clear to auscultation and percussion. No rales, rhonchi or wheezes noted. No increased work of breathing, no retractions or nasal flaring. Abdomen/GI: Soft, non-tender, with normal bowel sounds. No distension or tympany. No guarding or rebound. No evidence of tenderness throughout. Back: No spinal tenderness. No costovertebral tenderness. Full range of motion. Skin: Warm, dry with normal turgor. Normal color with no rashes, no lesions, and no evidence of cellulitis. MS/ Extremity: Pulses equal, no cyanosis. Neurovascular intact. Full, normal range of motion. Neuro: Awake and alert, GCS 15, oriented to person, place, time, and situation. Cranial nerves II-XII grossly intact. Motor strength 5/5 in all extremities. Sensory grossly intact. Cerebellar exam normal. Normal gait. 11:43 ECG was reviewed by the Attending Physician. [facility] Vital Signs: 10:50 BP 104 / 69; Pulse 95; Resp 18; Temp 98.2(TE); Pulse Ox 97% on R/A; Weight 65.77 kg; ld1 Height 5 ft. 7 in. ; Pain 7/10; 11:49 BP 108 / 70; Pulse 85; Resp 18; Pulse Ox 100% on R/A; mb9 10:50 Body Mass Index 22.71 (65.77 kg, 170.18 cm) ld1 10:50 Pain Scale: Adult ld1 MDM: 11:02 Patient medically screened. [facility] 11:43 Differential diagnosis: STEMI, NSTEMI, Chest wall pain, pericarditis, alcohol abuse, jr8 HTN crisis. Data reviewed: vital signs, nurses notes, EKG, and as a result, I will discharge patient. I considered the following discharge prescriptions or medication management in the emergency department Pain Medications: At this time, prescription pain medications are not recommended. Counseling: I had a detailed discussion with the patient and/or guardian regarding the historical points, exam findings, and any diagnostic results supporting the discharge/admit diagnosis, the need for outpatient follow up, a family practitioner, to return to the emergency department if symptoms worsen or persist or if there are any questions or concerns that arise at home. ED course: Patient remains hemodynamically stable and asymptomatic at this time. EKG within normal limits. Patient is eating and relaxing in the exam room with no other complaints. Will discharge patient to follow-up with primary care and knows to return if you are to have change or worsening of his condition.. 02/06 11:25 Order name: EKG; Complete Time: 11:25 jr8 02/06 11:25 Order name: EKG - Nurse/Tech; Complete Time: 11:36 jr8 EC:43 Rate is 95 beats/min. Rhythm is regular, Normal Sinus Rhythm. QRS Orient is Normal. VT jr8 interval is normal. QRS interval is normal. QT interval is normal. No Q waves. T waves are Normal. No ST changes noted. Clinical impression: Normal ECG. Interpreted by me. Reviewed by me. Administered Medications: No medications were administered Disposition Summary: 02/07/24 11:46 Discharge Ordered Notes: Location: Home jr8 Problem: new jr8 Symptoms: have improved jr8 Condition: Stable jr8 Diagnosis - Chest pain, unspecified jr8 Followup: jr8 - With: Private Physician - When: 2 - 3 days - Reason: Recheck today's complaints, Continuance of care, Re-evaluation by your physician Discharge Instructions: - Discharge Summary Sheet jr8 - Nonspecific Chest Pain, Adult jr8 Forms: - Medication Reconciliation Form jr8 - Antibiotic Education jr8 - Prescription Opioid Use jr8 - Patient Portal Instructions jr8 - Leadership Thank You Letter jr8 Signatures: Rigo Cherry PA PA jr8 Basilia Wen RN RN ld1
--- NOTE | 2024-02-07 11:47 | ER ---
Nurse's Notes [facility] Name: Walt Velazquez Age: 53 yrs Sex: Male : 1970 Arrival Date: 02/07/2024 Time: 10:47 Bed 5 Private MD: Diagnosis: Chest pain, unspecified Presentation: 02/06 10:50 Coronavirus screen: At this time, the client does not indicate any symptoms associated ld1 with coronavirus-19. Ebola Screen: No symptoms or risks identified at this time. Initial Sepsis Screen:. Risk Assessment: Do you want to hurt yourself or someone else? Patient reports no desire to harm self or others. Onset of symptoms was February 07, 2024. 10:50 Method Of Arrival: EMS: [facility] ld1 10:50 Acuity: LATASHA 3 ld1 10:51 Chief complaint: EMS states: toned out to [facility] for chest pain. Initial Sepsis Screen: ld1 Does the patient meet any 2 criteria? No. Patient's initial sepsis screen is negative. Does the patient have a suspected source of infection? No. Patient's initial sepsis screen is negative. Triage Assessment: 10:50 General: Appears in no apparent distress. comfortable, Behavior is calm, cooperative, ld1 appropriate for age. Pain: Complains of pain in chest Pain does not radiate. Pain currently is 8 out of 10 on a pain scale. Quality of pain is described as throbbing, Pain began suddenly, Is continuous. EENT: No signs and/or symptoms were reported regarding the EENT system. Neuro: Level of Consciousness is awake, alert, obeys commands, Oriented to person, place, time, situation, Appropriate for age. Cardiovascular: Capillary refill < 3 seconds Patient's skin is warm and dry. Respiratory: Airway is patent Respiratory effort is even, unlabored. GI: Abdomen is flat, non-distended. : No signs and/or symptoms were reported regarding the genitourinary system. Derm: No signs and/or symptoms reported regarding the dermatologic system. Musculoskeletal: No signs and/or symptoms reported regarding the musculoskeletal system. Historical: - Allergies: 10:49 Trazodone; too strong for him; ld1 - PMHx: 10:49 Alcoholism; Bipolar II; Hypertensive disorder; Parkinsons; Seizure; ld1 - PSHx: 10:49 toe amputation; ld1 - Immunization history:: Adult Immunizations up to date. - Infectious Disease History:: Denies. - Social history:: Smoking status: Patient denies any tobacco usage or history of. Patient uses alcohol, on a daily basis. Screenin:52 [facility] ED Fall Risk Assessment (Adult) History of falling in the last 3 months, ld1 including since admission No falls in past 3 months (0 pts) Confusion or Disorientation No (0 pts) Intoxicated or Sedated No (0 pts) Impaired Gait No (0 pts) Mobility Assist Device Used No (0 pt) Altered Elimination No (0 pt) Score/Fall Risk Level 0 - 2 = Low Risk Oriented to surroundings, Maintained a safe environment, Educated pt \T\ family on fall prevention, incl call for assistance when getting out of bed, Assessed \T\ reinforced patient's understanding of fall precautions, Provided non-skid footwear, Hourly rounding (assess needs \T\ fall precautionary measures) done, Used ambulatory aids as needed (educated on \T\ assisted with), Used gait belt as appropriate. Abuse screen: Denies threats or abuse. Denies injuries from another. Nutritional screening: No deficits noted. Tuberculosis screening: No symptoms or risk factors identified. Assessment: 10:52 Reassessment: See triage assessment. ld1 Vital Signs: 10:50 BP 104 / 69; Pulse 95; Resp 18; Temp 98.2(TE); Pulse Ox 97% on R/A; Weight 65.77 kg; ld1 Height 5 ft. 7 in. ; Pain 7/10; 11:49 BP 108 / 70; Pulse 85; Resp 18; Pulse Ox 100% on R/A; mb9 10:50 Body Mass Index 22.71 (65.77 kg, 170.18 cm) ld1 10:50 Pain Scale: Adult ld1 ED Course: 10:48 Patient arrived in ED. ld1 10:50 Triage completed. ld1 10:50 Arm band placed on right wrist. ld1 10:52 Patient has correct armband on for positive identification. Placed in gown. Bed in low ld1 position. Call light in reach. Side rails up X2. conditioner tender on. Pulse ox on. NIBP on. Door closed. Noise minimized. Warm blanket given. 10:52 No provider procedures requiring assistance completed. Patient maintains SpO2 ld1 saturation greater than 95% on room air. 10:53 Rigo Cherry PA is PHCP. jr8 10:53 Deandre Mckeon MD is Attending Physician. jr8 11:36 EKG done, by ED staff, reviewed by Rigo CISNEROS. jr12 11:49 Patient did not have IV access during this emergency room visit. mb9 Administered Medications: No medications were administered Medication: 10:52 VIS not applicable for this client. ld1 Outcome: 11:46 Discharge ordered by . jr8 11:49 Discharged to home ambulatory, mb9 11:49 Condition: stable 11:49 Discharge instructions given to patient, Instructed on discharge instructions, follow up and referral plans. Demonstrated understanding of instructions, follow-up care, 11:49 Patient left the ED. mb9 Signatures: Rigo Cherry PA PA jr8 Basilia Wen RN RN ld1 Karrie Marte RN RN mb9 Kymberly Barahona jr12
[2024-02-07 11:54] VITALS: TEMP 98.2
[2024-02-07 11:55] VITALS: BP 108/70; O2SAT 100
--- NOTE | 2024-02-09 17:51 | EKG ---
Test Date: 2024-02-07 Test Time: 13:43:39 Shrinker: CASSANDRA MEASUREMENT RESULTS: Intervals: Rate: 99 MA: 178 QRSD: 74 QT: 336 QTc: 431 [place]: P: 42 MA: 178 QRS: 35 T: 15 INTERPRETIVE STATEMENTS: Normal sinus rhythm Nonspecific T wave abnormality Abnormal ECG Compared to ECG 12/04/2023 18:59:18 Sinus tachycardia no longer present Possible ischemia no longer present T-wave abnormality still present Electronically Signed On 02-09-24 17:47:36 CDT by Moi Edmond
== END 2024-02-07 11:49 | disposition home or self-care (01) ==
LOC: ER 10:47
DX: R07.9 Chest pain, unspecified (principal); I10 Essential (primary) hypertension
CPT/HCPCS: 93005; 99284

== ENCOUNTER 2024-02-07 13:12 | Emergency (ER) | payer SELFPAY ==
[2024-02-07 13:38] LABS: Absolute Lymphocytes (CBC) 1.3 K/uL (0.7-4.9); Absolute Monocytes 0.6 K/uL (0.1-1.3); Absolute Neutrophil 8.2 K/uL (1.8-8.0); Basophils % 0.4 % (0-1.3); Hematocrit 40.9 % (39.6-49.0); Hemoglobin 13.5 g/dL (13.6-17.9); Lymphocytes % 12.8 % (15.3-44.8); MCH 30.6 pg (27.0-35.0); MCV 92.9 fL (80-100); MPV 6.7 fL (7.6-11.3); Monocytes % 5.6 % (3.3-12.3); Neutrophils % 81.2 % (41.7-73.7); Platelets 331 thou/uL (152-406)
[2024-02-07 13:57] LABS: Anion Gap 14.3 mEq/L (5.0-15.0); Potassium 3.3 mEq/L (3.5-5.1); Troponin High Sensitivity 7.2 pg/mL (<58.9)
[2024-02-07] MEDS ORDERED: NA CHLORIDE 0.9% 1,000 ML ONE (13:58)
--- NOTE | 2024-02-07 15:28 | ER ---
Nurse's Notes [facility] Name: Walt Velazquez Age: 53 yrs Sex: Male : 1970 Arrival Date: 02/07/2024 Time: 13:12 Bed 19 Private MD: Diagnosis: Syncope Presentation: 02/06 13:15 Chief complaint: EMS states: had possible seizure in the bathroom at [facility] witnessed aa5 by bystander and fell. Pt currently denies any complaints. C-collar by EMS. 13:15 Coronavirus screen: At this time, the client does not indicate any symptoms associated aa5 with coronavirus-19. Ebola Screen: Patient denies travel to an Ebola-affected area in the 21 days before illness onset. Initial Sepsis Screen: Does the patient meet any 2 criteria? HR > 90 bpm. Does the patient have a suspected source of infection? No. Patient's initial sepsis screen is negative. Risk Assessment: Do you want to hurt yourself or someone else? Patient reports no desire to harm self or others. Onset of symptoms was February 07, 2024. 13:15 Acuity: LATASHA 3 aa5 13:15 Method Of Arrival: EMS: [facility] aa5 13:15 Care prior to arrival: IV initiated. 18 GA, in the right forearm. aa5 Historical: - Allergies: 13:20 Trazodone; too strong for him; aa5 - PMHx: 13:20 Alcoholism; Bipolar II; Hypertensive disorder; Parkinsons; Seizure; aa5 - PSHx: 13:20 toe amputation; aa5 - Immunization history:: Adult Immunizations unknown. - Infectious Disease History:: Denies. - Social history:: Smoking status: Patient denies any tobacco usage or history of. Patient uses alcohol, on a daily basis. Screenin:15 [facility] ED Fall Risk Assessment (Adult) History of falling in the last 3 months, aa5 including since admission No falls in past 3 months (0 pts) Confusion or Disorientation No (0 pts) Intoxicated or Sedated Yes (3 pts) Impaired Gait No (0 pts) Mobility Assist Device Used No (0 pt) Altered Elimination No (0 pt) Score/Fall Risk Level 3 or more points = High Risk Oriented to surroundings, Maintained a safe environment, Educated pt \T\ family on fall prevention, incl call for assistance when getting out of bed, Assessed \T\ reinforced patient's understanding of fall precautions, Hourly rounding (assess needs \T\ fall precautionary measures) done. Abuse screen: Denies threats or abuse. Nutritional screening: No deficits noted. Tuberculosis screening: No symptoms or risk factors identified. Assessment: 13:15 General: Appears comfortable, Behavior is calm, cooperative. Pain: Denies pain. Neuro: aa5 Level of Consciousness is awake, alert, obeys commands, Oriented to person, place, time, situation. Cardiovascular: Heart tones S1 S2 present Rhythm is regular. Respiratory: Airway is patent Respiratory effort is even, unlabored, Respiratory pattern is regular, symmetrical. GI: Abdomen is round non-distended, Abd is soft and non tender X 4 quads. : No signs and/or symptoms were reported regarding the genitourinary system. EENT: poor dentition noted. . Derm: Skin is pink, warm \T\ dry. Musculoskeletal: Range of motion: intact in all extremities. 14:00 Reassessment: Pt requesting c-collar to be removed, provider notified and order to aa5 remove c-collar at this time. C-collar removed. . 14:00 Reassessment: Patient is alert, oriented x 3, equal unlabored respirations, skin aa5 warm/dry/pink. 15:28 Reassessment: Patient is alert, oriented x 3, equal unlabored respirations, skin aa5 warm/dry/pink. Vital Signs: 13:15 BP 129 / 70; Pulse 102; Resp 19 S; Temp 98(O); Pulse Ox 96% on R/A; aa5 13:30 BP 124 / 72; Pulse 102; Resp 19 S; Pulse Ox 95% on R/A; aa5 14:15 BP 111 / 72; Pulse 93; Resp 18 S; Pulse Ox 96% on R/A; aa5 ED Course: 13:15 Patient arrived in ED. eb 13:15 Arm band placed on Patient placed in an exam room, on a stretcher. aa5 13:15 Patient has correct armband on for positive identification. Bed in low position. Call aa5 light in reach. Side rails up X2. Client placed on continuous cardiac and pulse oximetry monitoring. NIBP monitoring applied. color television console monitor on. Pulse ox on. NIBP on. 13:16 Rigo Cherry PA is PHCP. jr8 13:16 Deandre Mckeon MD is Attending Physician. jr8 13:19 Nellie Perkins, RN is Primary Nurse. aa5 13:27 Maintain EMS IV. Dressing intact. Good blood return noted. Site clean \T\ dry. Gauge \T\ aa 5 site: 18G to R FA. Flushed with 10 mL NS. 13:27 Initial lab(s) drawn, by me, sent to lab. aa5 14:12 Triage completed. aa5 15:28 No provider procedures requiring assistance completed. IV discontinued, intact, aa5 bleeding controlled, No redness/swelling at site. Pressure dressing applied. Administered Medications: 14:00 Drug: NS 0.9% IV 1000 ml IV at 1000 ml once Route: IV; Rate: 1000 ml; Site: right aa5 forearm; 15:15 Follow up: IV Status: Completed infusion; IV Intake: 1000ml aa5 Medication: 14:50 VIS not applicable for this client. aa5 Intake: 15:15 IV: 1000ml; Total: 1000ml. aa5 Outcome: 15:28 Discharge ordered by . jr8 15:28 Patient left the ED. aa5 15:28 Discharged to home ambulatory, aa5 15:28 Condition: stable 15:28 Discharge instructions given to patient, Instructed on discharge instructions, follow up and referral plans. Demonstrated understanding of instructions, follow-up care, Signatures: Nellie Perkins, RN RN aa5 Rigo Cherry PA PA jr8 Ivett Nix Corrections: (The following items were deleted from the chart) 14:14 13:15 Initial Sepsis Screen: Does the patient meet any 2 criteria? No. Patient's aa5 initial sepsis screen is negative. Does the patient have a suspected source of infection? No. Patient's initial sepsis screen is negative. aa5 16:19 15:38 Patient left the ED. aa5 aa5 16:20 15:28 Patient left the ED. aa5 aa5
--- NOTE | 2024-02-07 15:28 | EDPHYS ---
Physician Documentation [facility] Name: Walt Velazquez Age: 53 yrs Sex: Male : 1970 Arrival Date: 02/07/2024 Time: 13:12 Bed 19 Private MD: ED Physician Deandre Mckeon HPI: 02/06 15:28 This 53 yrs old Male presents to ER via EMS with complaints of Syncope. jr8 15:28 Onset: The symptoms/episode began/occurred acutely, today. Severity of symptoms: At jr8 their worst the symptoms were mild, in the emergency department the symptoms have resolved. The patient has experienced similar episodes in the past, several times. Patient stated that he was at [facility]. Was in restroom and had syncopal episode. Attendant had found him and woke him up . Historical: - Allergies: 13:20 Trazodone; too strong for him; aa5 - PMHx: 13:20 Alcoholism; Bipolar II; Hypertensive disorder; Parkinsons; Seizure; aa5 - PSHx: 13:20 toe amputation; aa5 - Immunization history:: Adult Immunizations unknown. - Infectious Disease History:: Denies. - Social history:: Smoking status: Patient denies any tobacco usage or history of. Patient uses alcohol, on a daily basis. ROS: 15:28 Eyes: Negative for injury, pain, redness, and discharge, ENT: Negative for injury, jr8 pain, and discharge, Neck: Negative for injury, pain, and swelling, Respiratory: Negative for shortness of breath, cough, wheezing, and pleuritic chest pain, Abdomen/GI: Negative for abdominal pain, nausea, vomiting, diarrhea, and constipation, Back: Negative for injury and pain, MS/Extremity: Negative for injury and deformity, Skin: Negative for injury, rash, and discoloration, Neuro: Negative for headache, weakness, numbness, tingling, and seizure, 15:28 Cardiovascular: Positive for Syncope , Negative for chest pain, edema, orthopnea, palpitations, paroxysmal nocturnal dyspnea, Exam: 15:28 Constitutional: This is a well developed, well nourished patient who is awake, alert, jr8 and in no acute distress. Head/Face: Normocephalic, atraumatic. Eyes: Pupils equal round and reactive to light, extra-ocular motions intact. Lids and lashes normal. Conjunctiva and sclera are non-icteric and not injected. Cornea within normal limits. Periorbital areas with no swelling, redness, or edema. ENT: Nares patent. No nasal discharge, no septal abnormalities noted. Tympanic membranes are normal and external auditory canals are clear. Oropharynx with no redness, swelling, or masses, exudates, or evidence of obstruction, uvula midline. Mucous membranes moist. Neck: Trachea midline, no thyromegaly or masses palpated, and no cervical lymphadenopathy. Supple, full range of motion without nuchal rigidity, or vertebral point tenderness. No Meningismus. Cardiovascular: Regular rate and rhythm with a normal S1 and S2. No gallops, murmurs, or rubs. Normal PMI, no JVD. No pulse deficits. Respiratory: Lungs have equal breath sounds bilaterally, clear to auscultation and percussion. No rales, rhonchi or wheezes noted. No increased work of breathing, no retractions or nasal flaring. Abdomen/GI: Soft, non-tender, with normal bowel sounds. No distension or tympany. No guarding or rebound. No evidence of tenderness throughout. Back: No spinal tenderness. No costovertebral tenderness. Full range of motion. Skin: Warm, dry with normal turgor. Normal color with no rashes, no lesions, and no evidence of cellulitis. MS/ Extremity: Pulses equal, no cyanosis. Neurovascular intact. Full, normal range of motion. Neuro: Awake and alert, GCS 15, oriented to person, place, time, and situation. Cranial nerves II-XII grossly intact. Motor strength 5/5 in all extremities. Sensory grossly intact. Cerebellar exam normal. Normal gait. Vital Signs: 13:15 BP 129 / 70; Pulse 102; Resp 19 S; Temp 98(O); Pulse Ox 96% on R/A; aa5 13:30 BP 124 / 72; Pulse 102; Resp 19 S; Pulse Ox 95% on R/A; aa5 14:15 BP 111 / 72; Pulse 93; Resp 18 S; Pulse Ox 96% on R/A; aa5 MDM: 13:16 Patient medically screened. [facility] 15:22 Data reviewed: vital signs, nurses notes, lab test result(s), EKG, and as a result, I jr8 will discharge patient. I considered the following discharge prescriptions or medication management in the emergency department Medications were administered in the Emergency Department. See MAR. Counseling: I had a detailed discussion with the patient and/or guardian regarding the historical points, exam findings, and any diagnostic results supporting the discharge/admit diagnosis, lab results, radiology results, the need for outpatient follow up, a family practitioner, to return to the emergency department if symptoms worsen or persist or if there are any questions or concerns that arise at home. Response to treatment: the patient's symptoms have resolved after treatment, patient is well hydrated. and as a result, I will discharge patient. 02/06 13:17 Order name: Basic Metabolic Panel; Complete Time: 13:57 02/06 13:17 Order name: CBC with Diff; Complete Time: 13:45 02/06 13:17 Order name: Magnesium; Complete Time: 13:57 02/06 13:17 Order name: Troponin HS; Complete Time: 13:57 02/06 13:17 Order name: ETOH Level; Complete Time: 13:54 02/06 13:17 Order name: Cardiac monitoring; Complete Time: 13:28 02/06 13:17 Order name: EKG - Nurse/Tech; Complete Time: 13:57 02/06 13:17 Order name: IV Saline Lock; Complete Time: 13:28 02/06 13:17 Order name: Labs collected and sent; Complete Time: 13:28 02/06 13:17 Order name: O2 Per Protocol; Complete Time: 13:28 02/06 13:17 Order name: O2 Sat Monitoring; Complete Time: 13:28 Administered Medications: 14:00 Drug: NS 0.9% IV 1000 ml IV at 1000 ml once Route: IV; Rate: 1000 ml; Site: right aa5 forearm; 15:15 Follow up: IV Status: Completed infusion; IV Intake: 1000ml aa5 Disposition Summary: 02/07/24 15:28 Discharge Ordered Notes: Location: Home jr8 Problem: new jr8 Symptoms: have improved jr8 Condition: Stable jr8 Diagnosis - Syncope jr8 Followup: jr8 - With: Private Physician - When: As needed - Reason: Recheck today's complaints, Continuance of care, Re-evaluation by your physician Forms: - Medication Reconciliation Form 8 - Antibiotic Education jr8 - Prescription Opioid Use jr8 - Patient Portal Instructions jr8 - Leadership Thank You Letter jr8 Signatures: Dispatcher [employer] EDNellie Bernabe RN RN aa5 Rigo Cherry PA PA jr8 Corrections: (The following items were deleted from the chart) 13:17 13:17 BASIC METABOLIC PANEL+C.LAB.BRZ ordered. EDMS EDMS 13:17 13:17 CBC+H.LAB.BRZ ordered. EDMS EDMS 13:17 13:17 MAGNESIUM+C.LAB.BRZ ordered. EDMS EDMS 13:17 13:17 Troponin High Sensitivity+C.LAB.BRZ ordered. EDMS EDMS 13:17 13:17 ETHANOL+C.LAB.BRZ ordered. EDMS EDMS
[2024-02-07 16:13] VITALS: TEMP 98
[2024-02-07 16:16] VITALS: BP 111/72; O2SAT 96
--- NOTE | 2024-02-09 17:52 | EKG ---
Test Date: 2024-02-07 Test Time: 11:33:48 Diet Counselor: BRIDGETTE MEASUREMENT RESULTS: Intervals: Rate: 95 ID: [id number] QRSD: 74 QT: 360 QTc: 452 [place]: P: 54 ID: [id number] QRS: 61 T: 6 INTERPRETIVE STATEMENTS: Normal sinus rhythm Low voltage QRS Borderline ECG Compared to ECG 02/06/2024 21:17:54 Low QRS voltage now present Electronically Signed On 02-09-24 17:47:47 CDT by Moi Edmond
== END 2024-02-07 15:38 | disposition home or self-care (01) ==
LOC: ER 13:12
DX: R55 Syncope and collapse (principal)
CPT/HCPCS: 36415; 80048; 82077; 83735; 84484; 85025; 93005; 96360; 99285; J7030

== ENCOUNTER 2024-02-07 18:06 | Emergency (ER) | payer SELFPAY ==
--- NOTE | 2024-02-07 18:17 | EDPHYS ---
Physician Documentation [facility] Name: Walt Velazquez Age: 53 yrs Sex: Male : 1970 Arrival Date: 02/07/2024 Time: 18:06 Bed 23 Private MD: ED Physician Deandre Mckeon HPI: 02/06 18:11 This 53 yrs old Male presents to ER via Unassigned with complaints of fall, bridgette etoh abuse, multiple visits. 18:11 Details of fall: The patient fell from an upright position, while standing. Onset: The bridgette symptoms/episode began/occurred just prior to arrival, today. Associated injuries: The patient sustained no obvious injury. The patient has experienced similar episodes in the past, multiple times. Historical: - Immunization history:: Adult Immunizations up to date. - Infectious Disease History:: Denies. - Family history:: not pertinent. - Social history:: Smoking status: Patient denies any tobacco usage or history of. ROS: 18:11 Constitutional: Negative for fever, chills, and weight loss, Eyes: Negative for injury, bridgette pain, redness, and discharge, ENT: Negative for injury, pain, and discharge, Neck: Negative for injury, pain, and swelling, Cardiovascular: Negative for chest pain, palpitations, and edema, Respiratory: Negative for shortness of breath, cough, wheezing, and pleuritic chest pain, Abdomen/GI: Negative for abdominal pain, nausea, vomiting, diarrhea, and constipation, Back: Negative for injury and pain, : Negative for injury, bleeding, discharge, and swelling, MS/Extremity: Negative for injury and deformity, Skin: Negative for injury, rash, and discoloration, Psych: Negative for depression, anxiety, suicide ideation, homicidal ideation, and hallucinations, Allergy/Immunology: Negative for hives, rash, and allergies, Endocrine: Negative for neck swelling, polydipsia, polyuria, polyphagia, and marked weight changes, Hematologic/Lymphatic: Negative for swollen nodes, abnormal bleeding, and unusual bruising, 18:11 Neuro: Positive for gait disturbance, Exam: 18:11 Constitutional: This is a well developed, well nourished patient who is awake, alert, bridgette and in no acute distress. Head/Face: Normocephalic, atraumatic. Eyes: Pupils equal round and reactive to light, extra-ocular motions intact. Lids and lashes normal. Conjunctiva and sclera are non-icteric and not injected. Cornea within normal limits. Periorbital areas with no swelling, redness, or edema. ENT: Nares patent. No nasal discharge, no septal abnormalities noted. Tympanic membranes are normal and external auditory canals are clear. Oropharynx with no redness, swelling, or masses, exudates, or evidence of obstruction, uvula midline. Mucous membranes moist. Neck: Trachea midline, no thyromegaly or masses palpated, and no cervical lymphadenopathy. Supple, full range of motion without nuchal rigidity, or vertebral point tenderness. No Meningismus. Chest/axilla: Normal chest wall appearance and motion. Nontender with no deformity. No lesions are appreciated. Cardiovascular: Regular rate and rhythm with a normal S1 and S2. No gallops, murmurs, or rubs. Normal PMI, no JVD. No pulse deficits. Respiratory: Lungs have equal breath sounds bilaterally, clear to auscultation and percussion. No rales, rhonchi or wheezes noted. No increased work of breathing, no retractions or nasal flaring. Abdomen/GI: Soft, non-tender, with normal bowel sounds. No distension or tympany. No guarding or rebound. No evidence of tenderness throughout. Back: No spinal tenderness. No costovertebral tenderness. Full range of motion. Male : Normal genitalia with no discharge or lesions. Skin: Warm, dry with normal turgor. Normal color with no rashes, no lesions, and no evidence of cellulitis. MS/ Extremity: Pulses equal, no cyanosis. Neurovascular intact. Full, normal range of motion. Neuro: Awake and alert, GCS 15, oriented to person, place, time, and situation. Cranial nerves II-XII grossly intact. Motor strength 5/5 in all extremities. Sensory grossly intact. Cerebellar exam normal. Normal gait. Psych: Awake, alert, with orientation to person, place and time. Behavior, mood, and affect are within normal limits. Vital Signs: 18:13 BP 108 / 70; Pulse 94; Resp 16; Temp 99; Pulse Ox 99% ; Weight 63.5 kg; Height 5 ft. 4 go2 in. ; 21:30 BP 115 / 70; Pulse 70; Resp 16; Pulse Ox 100% on R/A; pc2 18:13 Body Mass Index 24.03 (63.50 kg, 162.56 cm) go2 [place] Coma Score: 18:19 Eye Response: spontaneous(4). Motor Response: obeys commands(6). Verbal Response: go2 oriented(5). Total: 15. Trauma Score (Adult): 18:19 Eye Response: spontaneous(1); Verbal Response: oriented(1); Motor Response: obeys go2 commands(2); Systolic BP: > 89 mm Hg(4); Respiratory Rate: 10 to 29 per min(4); [place]ia Score: 15; Trauma Score: 12 MDM: 18:11 Patient medically screened. bridgette 18:13 Differential diagnosis: abrasion, closed head injury, contusion, laceration, multiple bridgette trauma, sprain, strain. Data reviewed: vital signs, nurses notes, lab test result(s). Consideration of Admission/Observation Escalation of care including admission/observation considered. I considered the following discharge prescriptions or medication management in the emergency department Medications were administered in the Emergency Department. See MAR. Independent interpretation of the following test(s) in the Emergency Department. Test considered but Not performed: CT: see prior labs, work up. Historians other than the Patient: EMS: ems well informed, must be dc'd to family. Care significantly affected by the following chronic conditions: Liver Disease, etoh abuse. Administered Medications: No medications were administered Disposition Summary: 02/07/24 18:17 Discharge Ordered Notes: Location: Home bridgette Problem: new bridgette Symptoms: have improved bridgette Condition: Stable bridgette Diagnosis - Ataxia, unspecified bridgette - Alcohol abuse bridgette - Alcohol dependence bridgette Followup: bridgette - With: Private Physician - When: 2 - 3 days - Reason: Recheck today's complaints, Continuance of care, Re-evaluation by your physician Followup: bridgette - With: Manav Paz MD - When: 2 - 3 days - Reason: Recheck today's complaints, Re-evaluation by your physician Discharge Instructions: - Discharge Summary Sheet bridgette - Fall Prevention in the Home, Adult bridgette - Alcohol Abuse and Nutrition bridgette - Ataxia bridgette Forms: - Medication Reconciliation Form bridgette - Antibiotic Education bridgette - Prescription Opioid Use bridgette - Patient Portal Instructions bridgette - Leadership Thank You Letter bridgette Signatures: Deandre Mckeon MD MD cha Oxford, Gabby, RN RN go2 Corrections: (The following items were deleted from the chart) 18: 18:18 PMHx: Hypertensive disorder; go2 go2 18:18 PMHx: Bipolar II; go2 go2 18:18 PMHx: Parkinsons; go2 go2 18:18 PMHx: Alcoholism; go2 go2 18:18 PMHx: Seizure; go2 go2 18:18 PSHx: toe amputation; go2 go2
--- NOTE | 2024-02-07 18:17 | ER ---
Nurse's Notes [facility] Name: Walt Velazquez Age: 53 yrs Sex: Male : 1970 Arrival Date: 02/07/2024 Time: 18:06 Bed 23 Private MD: Diagnosis: Ataxia, unspecified;Alcohol abuse;Alcohol dependence Presentation: 02/06 18:13 Chief complaint: Patient states: Fall \\T[facility]. Coronavirus screen: Client denies go2 travel out of the [place] in the last 14 days. Ebola Screen: Patient denies exposure to infectious person. Patient denies travel to an Ebola-affected area in the 21 days before illness onset. Initial Sepsis Screen: Does the patient meet any 2 criteria? No. Patient's initial sepsis screen is negative. Initial Sepsis Screen: Does the patient have a suspected source of infection? No. Patient's initial sepsis screen is negative. Risk Assessment: Do you want to hurt yourself or someone else? Patient reports no desire to harm self or others. Onset of symptoms. 18:13 Method Of Arrival: EMS: [facility] go2 18:13 Acuity: LATASHA 4 go2 18:20 Care prior to arrival: None. Mechanism of Injury: Fall. Mechanism of Injury: Fall from go2 standing position. Trauma event details: Injury occurred in the [facility], Injury occurred: in a public building. Injury occurred: February 07, 2024. Triage Assessment: 18:15 General: Appears in no apparent distress. comfortable, Behavior is calm, cooperative, go2 appropriate for age. Pain: Denies pain. Trauma Activation: Not Applicable Physician: ED Physician; Name: ; Notified At: ; Arrived At: Physician: General Surgeon; Name: ; Notified At: ; Arrived At: Physician: Radiology; Name: ; Notified At: ; Arrived At: Physician: Respiratory; Name: ; Notified At: ; Arrived At: Physician: Lab; Name: ; Notified At: ; Arrived At: Historical: - Immunization history:: Adult Immunizations up to date. - Infectious Disease History:: Denies. - Family history:: not pertinent. - Social history:: Smoking status: Patient denies any tobacco usage or history of. Screenin:16 [facility] ED Fall Risk Assessment (Adult) History of falling in the last 3 months, go2 including since admission Yes- single mechanical fall (1 pt) Confusion or Disorientation No (0 pts) Intoxicated or Sedated Yes (3 pts) Impaired Gait No (0 pts) Mobility Assist Device Used No (0 pt) Altered Elimination No (0 pt) Score/Fall Risk Level 3 or more points = High Risk. Abuse screen: Denies threats or abuse. Denies injuries from another. Nutritional screening: No deficits noted. Tuberculosis screening: No symptoms or risk factors identified. Primary Survey: 18:17 NO uncontrolled hemorrhage observed. A: The client is awake and alert. The airway is go2 patent. The client is alert. Airway: patent. Breathing/Chest: Spontaneous respiratory effort, equal unlabored respirations, breath sounds clear bilaterally, regular pattern, symmetrical chest rise and fall. Respiratory effort: spontaneous, unlabored. Circulation: No external hemorrhage present. Regular and strong central pulse, skin warm/dry/normal color. Pulses: palpable right radial artery and left radial artery. Disability Pupils are equal, round, reactive to light and accommodation. LEFT pupil: 3 mm RIGHT pupil: 3 mm Client is alert. Exposure/Environment:. 18:19 Reassessment Alertness and Airway: Awake and alert. The airway is patent. Airway Patent go2 Breathing: Circulation: No external hemorrhage noted. Regular and strong central pulse, skin warm/dry/normal color. Disability: Pupils Alert. Assessment: 18:16 General: Appears in no apparent distress. comfortable, Behavior is calm, cooperative, go2 appropriate for age, Denies fever, feeling ill, fatigue, chills. Pain: Denies pain. Neuro: No deficits noted. 18:22 Reassessment: Patient appears in no apparent distress at this time. Patient is alert, go2 oriented x 3, equal unlabored respirations, skin warm/dry/pink. Patient denies pain at this time. 18:25 Reassessment: Attempted to call next to kin (sister) and phone went to voice mail. go2 Unable to contact patient's family member. 18:51 Reassessment: Spoke to Sri [id number] ([phone]) reports she is pt's niece aa5 and reports her and her mom (Yessenia Hannon- pt's emergency contact) are both out of town and unable to provide pt with ride home, states "I don't know of anybody else that can give him a ride home, maybe he can go with the police to the [facility] was notified. . 21:54 Reassessment: d/c pending ride home. jb4 23:28 General: Spoke with Pts great niece Altagracia. 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 Just discharge him to the streets that's where he wants to be anyway." . 23:46 General: Pt ambulated to exit. Pt at baseline orientation. Alert and oriented to place vc1 and situation. Vital Signs: 18:13 BP 108 / 70; Pulse 94; Resp 16; Temp 99; Pulse Ox 99% ; Weight 63.5 kg; Height 5 ft. 4 go2 in. ; 21:30 BP 115 / 70; Pulse 70; Resp 16; Pulse Ox 100% on R/A; pc2 18:13 Body Mass Index 24.03 (63.50 kg, 162.56 cm) go2 [place] Coma Score: 18:19 Eye Response: spontaneous(4). Motor Response: obeys commands(6). Verbal Response: go2 oriented(5). Total: 15. Trauma Score (Adult): 18:19 Eye Response: spontaneous(1); Verbal Response: oriented(1); Motor Response: obeys go2 commands(2); Systolic BP: > 89 mm Hg(4); Respiratory Rate: 10 to 29 per min(4); [place] Score: 15; Trauma Score: 12 ED Course: 18:10 Patient arrived in ED. go2 18:11 Deandre Mckeon MD is Attending Physician. bridgette 18:13 Vera Lieberman, ROBERTO is Primary Nurse. go2 18:15 Triage completed. go2 18:16 Manav Paz MD is Referral Physician. bridgette 18:19 Arm band placed on left wrist. go2 18:21 Patient has correct armband on for positive identification. Fall risk band placed. go2 Provided Education on: NA. 18:21 No provider procedures requiring assistance completed. Patient did not have IV access go2 during this emergency room visit. 23:13 called Yessenia Hannon (sister) \\[phone] no answer left message. sp 23:14 called [place] [employer] for transport home. [address], [place] [address] pt sp states he lives with his mom at this residence. Administered Medications: No medications were administered Medication: 18:21 VIS not applicable for this client. go2 Intake: 18:19 PO: 0ml; Total: 0ml. go2 Output: 18:19 Urine: 0ml; Total: 0ml. go2 Outcome: 18:17 Discharge ordered by . bridgette 18:22 Discharged to home go2 18:22 Condition: stable 18:22 Discharge instructions given to patient, Instructed on discharge instructions, follow up and referral plans. Demonstrated understanding of instructions, follow-up care, Prescriptions given X NONE 23:47 Patient left the ED. vc1 Signatures: Deandre Mckeon MD MD cha Pinkerton, Shawna sp Calderon, Audri, RN RN aa5 Bj Sweeney, ROBERTO RN jb4 Niecy Roberto RN RN vc1 Maribel Vásquez RN RN pc2 Vera Lieberman RN RN go2 Corrections: (The following items were deleted from the chart) 18:19 18:18 PMHx: Hypertensive disorder; go2 go2 18:19 18:18 PMHx: Bipolar II; go2 go2 18:19 18:18 PMHx: Parkinsons; go2 go2 18:19 18:18 PMHx: Alcoholism; go2 go2 18:19 18:18 PMHx: Seizure; go2 go2 18:19 18:18 PSHx: toe amputation; go2 go2
[2024-02-07 23:52] VITALS: TEMP 99
[2024-02-07 23:54] VITALS: BP 115/70; O2SAT 100
== END 2024-02-07 23:47 | disposition home or self-care (01) ==
LOC: ER 18:06
DX: R27.0 Ataxia, unspecified (principal); F10.20 Alcohol dependence, uncomplicated
CPT/HCPCS: 99283

== ENCOUNTER 2024-02-08 01:22 | Emergency (ER) | payer SELFPAY ==
[2024-02-08] MEDS ORDERED: PHENYTOIN ER 100 MG CAP PO ONE (01:44)
[2024-02-08] MEDS ORDERED: DIAZEPAM 5 MG TABLET ONE (01:45)
--- NOTE | 2024-02-08 06:11 | EDPHYS ---
Physician Documentation [facility] Name: Walt Velazquez Age: 53 yrs Sex: Male : 1970 Arrival Date: 02/08/2024 Time: : Bed 16 Private MD: ED Physician Kaiser Marie HPI: 02/07 01:33 This 53 yrs old Male presents to ER via Unassigned with complaints of possible rn seizure. 01:33 The patient presents after having a possible seizure episode. Seizure onset: just prior rn to arrival. Seizure Hx: Seizure medications: phenytoin. Current symptoms: Currently, the patient is not experiencing any symptoms. The patient has experienced similar episodes in the past. Patient brought in by EMS for possible seizure. States went into gas station, thinks may have had a seizure because bystander called 911. When EMS arrived he was awake, walking and talking. Denies pain or injury. Last drink was earlier today, in fact he was in the emergency room for alcohol intoxication. States takes Dilantin but not regularly. Denies focal neurological deficit.. Historical: - Allergies: 01:35 No Known Allergies; rg5 - Immunization history:: Adult Immunizations. - Infectious Disease History:: Denies. - Family history:: not pertinent. - Social history:: Smoking status: Patient reports the use of cigarette tobacco products. - Hospitalizations: : No recent hospitalization is reported. ROS: 01:33 Constitutional: Negative for fever, chills, and weight loss, Neck: Negative for injury, rn pain, and swelling, Cardiovascular: Negative for chest pain, palpitations, and edema, Respiratory: Negative for shortness of breath, cough, wheezing, and pleuritic chest pain, Abdomen/GI: Negative for abdominal pain, nausea, vomiting, diarrhea, and constipation, Back: Negative for injury and pain, MS/Extremity: Negative for injury and deformity, Skin: Negative for injury, rash, and discoloration, Neuro: Possible seizure Exam: :33 Constitutional: This is a well developed, well nourished patient who is awake, alert, rn and in no acute distress. Head/Face: Normocephalic, atraumatic. ENT: Dry mucous membranes, no tongue laceration Neck: Trachea midline, no masses palpated, and no cervical lymphadenopathy. Supple, full range of motion without nuchal rigidity, or vertebral point tenderness. No Meningismus. Cardiovascular: Regular rate and rhythm. No pulse deficits. Respiratory: No increased work of breathing, no retractions or nasal flaring. Abdomen/GI: Soft, non-tender Neuro: Awake and alert, GCS 15, oriented to person, place, time, and situation. Cranial nerves II-XII grossly intact. Motor strength 5/5 in all extremities. Sensory grossly intact. Cerebellar exam normal. Vital Signs: 01:25 BP 130 / 80; Pulse 77; Resp 16; Temp 98.4; Pulse Ox 97% on R/A; Pain 3/10; rg5 02:00 BP 130 / 80; Pulse 77; Resp 16; Temp 98.4; Pulse Ox 97% on R/A; Pain 3/10; rg5 03:07 BP 128 / 79; Pulse 77; Resp 16; Pulse Ox 97% on R/A; rg5 04:16 BP 110 / 71; Pulse 70; Resp 16; Pulse Ox 97% on R/A; Pain 0/10; rg5 05:45 BP 117 / 78; Pulse 84; Resp 16; Pulse Ox 97% on R/A; Pain 0/10; rg5 01:25 Pain Scale: Adult rg5 02:00 Pain Scale: Adult rg5 04:16 Pain Scale: Adult rg5 05:45 Pain Scale: Adult rg5 MDM: 01:22 Patient medically screened. rn 04:20 ED course: Resting comfortably. . rn 06:09 Differential diagnosis: seizure. Data reviewed: vital signs, nurses notes, old medical rn records, and as a result, I will discharge patient. Care significantly affected by the following chronic conditions: Alcohol dependence, chronic seizures. Counseling: I had a detailed discussion with the patient and/or guardian regarding the historical points, exam findings, and any diagnostic results supporting the discharge/admit diagnosis, the need for outpatient follow up, to return to the emergency department if symptoms worsen or persist or if there are any questions or concerns that arise at home. Response to treatment: the patient's symptoms have markedly improved after treatment, the patient's symptoms have resolved after treatment, the patient's condition has returned to base line, the patient is now symptom free, and as a result, I will discharge patient. Administered Medications: 01:57 Drug: Phenytoin Sodium Extended PO 500 mg PO once Route: PO; rg5 02:53 Follow up: Response: No adverse reaction rg5 01:57 Drug: Diazepam PO 5 mg PO once Route: PO; rg5 02:52 Follow up: Response: No adverse reaction rg5 Disposition Summary: 02/08/24 06:10 Discharge Ordered Notes: Location: Home rn Problem: chronic rn Symptoms: have improved rn Condition: Stable rn Diagnosis - Epileptic seizures related to external causes, not intractable, without status rn epilepticus Followup: rn - With: Private Physician - When: As needed - Reason: Recheck today's complaints, Re-evaluation by your physician Discharge Instructions: - Discharge Summary Sheet rn - Epilepsy rn - Seizure, Adult rn Forms: - Medication Reconciliation Form rn - Antibiotic rn immunology - Prescription Opioid Use rn - Patient Portal Instructions rn - Leadership Thank You Letter rn Signatures: Kaiser Marie MD MD rn Gallardo, Rommel, RN RN rg5
--- NOTE | 2024-02-08 06:11 | ER ---
Nurse's Notes [facility] Name: Walt Velazquez Age: 53 yrs Sex: Male : 1970 Arrival Date: 02/08/2024 Time: 01:22 Bed 16 Private MD: Diagnosis: Epileptic seizures related to external causes, not intractable, without status epilepticus Presentation: 02/07 01:25 Chief complaint: EMS states: patient [place] a [place] [facility] [place] rg5 01:25 Coronavirus screen: Vaccine status: Client denies travel out of the [place] in the last 14 rg5 days. Ebola Screen: Patient negative for fever greater than or equal to 101.5 degrees Fahrenheit, and additional compatible Ebola Virus Disease symptoms. Initial Sepsis Screen: Does the patient meet any 2 criteria? No. Patient's initial sepsis screen is negative. Risk Assessment: Do you want to hurt yourself or someone else? Patient reports no desire to harm self or others. Onset of symptoms. Mechanism of Injury: Fall from standing position. 01:25 Method Of Arrival: EMS: [facility] rg5 01:25 Acuity: LATASHA 3 rg5 01:25 Initial Sepsis Screen: Does the patient have a suspected source of infection? No. rg5 Patient's initial sepsis screen is negative. Triage Assessment: 01:35 General: Appears comfortable, Behavior is calm, cooperative, appropriate for age. Pain: rg5 Complains of pain in forehead Pain currently is 3 out of 10 on a pain scale. Quality of pain is described as throbbing, Pain began 1 hour ago. EENT: No deficits noted. Neuro: Level of Consciousness is awake, alert, obeys commands, Oriented to person, place, time. Cardiovascular: Denies chest pain, Capillary refill < 3 seconds Patient's skin is warm and dry. Respiratory: Airway is patent Trachea midline Respiratory effort is even, unlabored, Respiratory pattern is regular, symmetrical. GI: Abdomen is flat, non-distended. : No signs and/or symptoms were reported regarding the genitourinary system. Derm: Skin is intact, Skin is dry, Skin is normal, Skin temperature is warm. Musculoskeletal: Range of motion: intact in all extremities. Historical: - Allergies: 01:35 No Known Allergies; rg5 - Immunization history:: Adult Immunizations. - Infectious Disease History:: Denies. - Family history:: not pertinent. - Social history:: Smoking status: Patient reports the use of cigarette tobacco products. - Hospitalizations: : No recent hospitalization is reported. Screenin:00 [facility] ED Fall Risk Assessment (Adult) History of falling in the last 3 months, rg5 including since admission Yes- single mechanical fall (1 pt) Confusion or Disorientation No (0 pts) Intoxicated or Sedated No (0 pts) Impaired Gait Yes (1 pt) Mobility Assist Device Used No (0 pt) Altered Elimination No (0 pt) Score/Fall Risk Level 3 or more points = High Risk Oriented to surroundings, Maintained a safe environment, Educated pt \T\ family on fall prevention, incl call for assistance when getting out of bed, Hourly rounding (assess needs \T\ fall precautionary measures) done. Abuse screen: Denies threats or abuse. Nutritional screening: No deficits noted. Tuberculosis screening: No symptoms or risk factors identified. Assessment: 01:25 Reassessment: Patient is alert, oriented x 3, equal unlabored respirations, skin rg5 warm/dry/pink. see triage assessment. 02:39 Reassessment: Patient and/or family updated on plan of care and expected duration. Pain rg5 level reassessed. Patient is alert, oriented x 3, equal unlabored respirations, skin warm/dry/pink. 03:08 Reassessment: Patient and/or family updated on plan of care and expected duration. Pain rg5 level reassessed. Patient is alert, oriented x 3, equal unlabored respirations, skin warm/dry/pink. Patient states feeling better. 04:16 Reassessment: Patient and/or family updated on plan of care and expected duration. Pain rg5 level reassessed. Patient is alert, oriented x 3, equal unlabored respirations, skin warm/dry/pink. Patient states feeling better. Patient states symptoms have improved. Respiratory: Airway is patent Trachea midline Respiratory effort is even, unlabored, Respiratory pattern is regular, symmetrical. 05:45 Reassessment: Patient and/or family updated on plan of care and expected duration. Pain rg5 level reassessed. Patient is alert, oriented x 3, equal unlabored respirations, skin warm/dry/pink. Patient states feeling better. Respiratory: Respiratory effort is even, unlabored, Respiratory pattern is regular. Vital Signs: 01:25 BP 130 / 80; Pulse 77; Resp 16; Temp 98.4; Pulse Ox 97% on R/A; Pain 3/10; rg5 02:00 BP 130 / 80; Pulse 77; Resp 16; Temp 98.4; Pulse Ox 97% on R/A; Pain 3/10; rg5 03:07 BP 128 / 79; Pulse 77; Resp 16; Pulse Ox 97% on R/A; rg5 04:16 BP 110 / 71; Pulse 70; Resp 16; Pulse Ox 97% on R/A; Pain 0/10; rg5 05:45 BP 117 / 78; Pulse 84; Resp 16; Pulse Ox 97% on R/A; Pain 0/10; rg5 01:25 Pain Scale: Adult rg5 02:00 Pain Scale: Adult rg5 04:16 Pain Scale: Adult rg5 05:45 Pain Scale: Adult rg5 ED Course: 01:22 Patient arrived in ED. rn 01:22 Kaiser Marie MD is Attending Physician. rn 01:29 Gurpreet Rivas RN is Primary Nurse. rg5 01:35 Triage completed. rg5 01:35 Arm band placed on left wrist. rg5 02:00 Patient has correct armband on for positive identification. Fall risk band placed. Bed rg5 in low position. Call light in reach. Side rails up X2. Provided Education on: fall prevention. 02:00 No provider procedures requiring assistance completed. Patient did not have IV access rg5 during this emergency room visit. 02:10 Door closed. Noise minimized. Warm blanket given. rg5 04:15 Resting quietly. Appears to be sleeping. rg5 Administered Medications: 01:57 Drug: Phenytoin Sodium Extended PO 500 mg PO once Route: PO; rg5 02:53 Follow up: Response: No adverse reaction rg5 01:57 Drug: Diazepam PO 5 mg PO once Route: PO; rg5 02:52 Follow up: Response: No adverse reaction rg5 Medication: 02:00 VIS not applicable for this client. rg5 Outcome: 06:10 Discharge ordered by . rn 06:36 Discharged to home ambulatory, rg5 06:36 Condition: stable 06:36 Discharge instructions given to patient, Instructed on discharge instructions, follow up and referral plans. Demonstrated understanding of instructions, follow-up care, 06:36 Patient left the ED. rg5 Signatures: Kaiser Marie MD MD rn Gallardo, Rommel, RN RN rg5 Corrections: (The following items were deleted from the chart) 03:16 01:25 Reassessment: Patient is alert, oriented x 3, equal unlabored respirations, skin rg5 warm/dry/pink. Patient states symptoms have not improved. see triage assessment. rg5
[2024-02-08 06:41] VITALS: TEMP 98.4; O2SAT 97
[2024-02-08 06:48] VITALS: BP 117/78
== END 2024-02-08 06:36 | disposition home or self-care (01) ==
LOC: ER 01:22
DX: G40.509 Epileptic seizures related to external causes, not intractable, without status epilepticus (principal)
CPT/HCPCS: 99284

== ENCOUNTER 2024-02-08 13:07 | Emergency (ER) | payer SELFPAY ==
--- NOTE | 2024-02-08 13:12 | ER ---
Nurse's Notes [facility] Name: Walt Velazquez Age: 53 yrs Sex: Male : 1970 Arrival Date: 02/08/2024 Time: 13:07 Bed IW1 Private MD: Diagnosis: Fall on same level, unspecified;Pain in right knee;Pain in left forearm;Pain in right forearm Presentation: 02/07 13:11 Chief complaint: Patient states: Fall, R knee and B FA pain since. Coronavirus screen: ll1 Client denies travel out of the [place] in the last 14 days. At this time, the client does not indicate any symptoms associated with coronavirus-19. Ebola Screen: Patient denies travel to an Ebola-affected area in the 21 days before illness onset. Initial Sepsis Screen: Does the patient meet any 2 criteria? No. Patient's initial sepsis screen is negative. Does the patient have a suspected source of infection? No. Patient's initial sepsis screen is negative. Risk Assessment: Do you want to hurt yourself or someone else? Patient reports no desire to harm self or others. Onset of symptoms was February 08, 2024. 13:11 Method Of Arrival: EMS ll 13:11 Acuity: LATASHA 5 ll1 Historical: - Allergies: 13:11 Trazodone; ll1 - PMHx: 13:11 Seizure; Hypertensive disorder; ll1 - Immunization history:: Adult Immunizations up to date. - Infectious Disease History:: Denies. - Social history:: Smoking status: unknown. Screenin:15 [facility] ED Fall Risk Assessment (Adult) History of falling in the last 3 months, tm6 including since admission Yes- single mechanical fall (1 pt) Confusion or Disorientation No (0 pts) Intoxicated or Sedated Yes (3 pts) Impaired Gait No (0 pts) Mobility Assist Device Used No (0 pt) Altered Elimination No (0 pt) Score/Fall Risk Level 0 - 2 = Low Risk Oriented to surroundings, Maintained a safe environment, Educated pt \T\ family on fall prevention, incl call for assistance when getting out of bed. Abuse screen: Denies threats or abuse. Denies injuries from another. Nutritional screening: No deficits noted. Tuberculosis screening: No symptoms or risk factors identified. Assessment: 14:08 General: Appears in no apparent distress. Behavior is calm, cooperative. General: tm6 Smells of alcohol. Pain: Complains of pain in right arm and right leg Pain currently is 7 out of 10 on a pain scale. Neuro: Level of Consciousness is awake, alert, obeys commands, Oriented to person, place, time, situation. Cardiovascular: Capillary refill < 3 seconds Patient's skin is warm and dry. Respiratory: Airway is patent Respiratory effort is even, unlabored, Respiratory pattern is regular, symmetrical. GI: No signs and/or symptoms were reported involving the gastrointestinal system. Abdomen is flat, non-distended. : No signs and/or symptoms were reported regarding the genitourinary system. EENT: No signs and/or symptoms were reported regarding the EENT system. Derm: No signs and/or symptoms reported regarding the dermatologic system. Musculoskeletal: Reports pain in right arm and right leg. Vital Signs: 13:14 BP 105 / 57; Pulse 95; Resp 18; Temp 98.7(O); Pulse Ox 97% ; Weight 63.5 kg; Height 5 tm6 ft. 3 in. ; Pain 7/10; 13:14 Body Mass Index 24.80 (63.50 kg, 160.02 cm) tm6 13:14 Pain Scale: Adult tm6 ED Course: 13:10 Patient arrived in ED. ll1 13:11 Jovanny Wen DO is Attending Physician. ms3 13:11 Hernan Wilkes DO is Referral Physician. ms3 13:11 Arm band placed on. ll1 13:12 Triage completed. ll1 13:15 Patient has correct armband on for positive identification. Provided Education on: tm6 discharge paperwork. 14:08 No provider procedures requiring assistance completed. Patient did not have IV access tm6 during this emergency room visit. Administered Medications: No medications were administered Medication: 13:15 VIS not applicable for this client. tm6 Outcome: 13:12 Discharge ordered by . ms3 14:08 Discharged to home tm6 14:08 Condition: stable 14:08 Discharge instructions given to patient, Instructed on discharge instructions, follow up and referral plans. Demonstrated understanding of instructions, follow-up care, 14:10 Patient left the ED. tm6 Signatures: Monet Masters RN RN ll1 Jovanny Wen DO DO ms3 Jia, Tawney, RN RN tm6
--- NOTE | 2024-02-08 13:12 | EDPHYS ---
Physician Documentation [facility] Name: Walt Velazquez Age: 53 yrs Sex: Male : 1970 Arrival Date: 02/08/2024 Time: 13:07 Bed IW1 Private MD: ED Physician Jovanny Wen HPI: 02/07 17:35 This 53 yrs old Male presents to ER via EMS with complaints of Fall Injury. [facility] 17:35 53-year-old male with past medical history of seizure, hypertension presents to the [facility] emergency department via [facility] status post fall. Patient is complaining of bilateral forearm and right knee pain. EMS notes patient was ambulatory without difficulty.. Historical: - Allergies: 13:11 Trazodone; ll1 - PMHx: 13:11 Seizure; Hypertensive disorder; ll1 - Immunization history:: Adult Immunizations up to date. - Infectious Disease History:: Denies. - Social history:: Smoking status: unknown. ROS: 17:35 Constitutional: Negative for fever, and chills. Neck: Negative for injury, pain, and ms3 swelling, Cardiovascular: Negative for chest pain, and palpitations. Respiratory: Negative for shortness of breath, cough, wheezing, and pleuritic chest pain, Abdomen/GI: Negative for abdominal pain, nausea, vomiting, diarrhea, and constipation, MS/Extremity: Negative for injury and deformity, Skin: Negative for injury, rash, and discoloration, Exam: 17:35 Constitutional: This is a well developed, well nourished patient who is awake, alert, ms3 and in no acute distress. Chest/axilla: Normal chest wall appearance and motion. Nontender with no deformity. Cardiovascular: Regular rate and rhythm with a normal S1 and S2. No gallops, murmurs, or rubs. Normal PMI, no JVD. No pulse deficits. Respiratory: Lungs have equal breath sounds bilaterally, clear to auscultation and percussion. No rales, rhonchi or wheezes noted. No increased work of breathing, no retractions or nasal flaring. Abdomen/GI: Soft, non-tender, with normal bowel sounds. No distension or tympany. No guarding or rebound. No evidence of tenderness throughout. 17:35 Musculoskeletal/extremity: Extremities: noted in the Right and left arm: There is no evidence of decreased ROM, deformity, ecchymosis, pain, swelling, tenderness, noted in the right leg: no evidence of contusion, decreased ROM, deformity, swelling, tenderness, Vital Signs: 13:14 BP 105 / 57; Pulse 95; Resp 18; Temp 98.7(O); Pulse Ox 97% ; Weight 63.5 kg; Height 5 tm6 ft. 3 in. ; Pain 7/10; 13:14 Body Mass Index 24.80 (63.50 kg, 160.02 cm) tm6 13:14 Pain Scale: Adult tm6 MDM: 13:12 Patient medically screened. ms3 17:35 Differential diagnosis: contusion, sprain, strain. Data reviewed: vital signs, nurses ms3 notes, and as a result, I will discharge patient. Counseling: I had a detailed discussion with the patient and/or guardian regarding the historical points, exam findings, and any diagnostic results supporting the discharge/admit diagnosis, the need for outpatient follow up, to return to the emergency department if symptoms worsen or persist or if there are any questions or concerns that arise at home. ED course: Discussed physical exam findings with patient. Patient to follow-up with primary care physician in 2 to 3 days. Patient understands and agrees with plan. All questions were answered. Return precautions discussed include worsening symptoms, or any other concerns. Administered Medications: No medications were administered Disposition Summary: 02/08/24 13:12 Discharge Ordered Notes: Location: Home ms3 Condition: Stable ms3 Diagnosis - Fall on same level, unspecified ms3 - Pain in right knee ms3 - Pain in left forearm ms3 - Pain in right forearm ms3 Followup: ms3 - With: Hernan Wilkes DO - When: 2 - 3 days - Reason: Re-evaluation by your physician Discharge Instructions: - Discharge Summary Sheet ms3 - Fall Prevention in the Home, Adult ms3 - Acute Knee Pain, Adult ms3 Forms: - Medication Reconciliation Form ms3 - Antibiotic Education ms3 - Prescription Opioid Use ms3 - Patient Portal Instructions ms3 - Leadership Thank You Letter ms3 Signatures: Monet Masters RN RN ll1 Jovanny Wen DO DO ms3 Kvng Ro RN RN tm6
[2024-02-08 14:17] VITALS: BP 105/57; TEMP 98.7; O2SAT 97
--- OUTSIDE RECORDS SUMMARY | 2024-02-09 14:07 | XMS REPORT | Continuity of Care Document ---
Author Name Unknown Address [address] [facility] [address] [place] [address] [facility] Address [address] [facility] [address] [place] [address] Care Team Providers Care Equine Pharmacology Technician Name Role Phone Pcp-None Primary Care Physician Unavailab Rafael Thomas MD Attending Clinician [phone] Sulaiman Hawkins DO Attending Clinician [phone] HEMANT KLEIN Attending Clinician Unavailable Hemant Klein MD Attending Clinician [phone] [place] Attending Clinician Unavailab JESSICA Gallardo Attending Clinician Unavailable Rayray Driscoll MD Attending Clinician +[phone] Jessica Prado MD Attending Clinician [phone] Oswald Murphy MD Attending Clinician [phone] DIYA CHOWDHURY Attending Clinician Unavailab Diya Mackey DO Attending Clinician [phone] Fidel Cuellar Attending Clinician Unavailable DIRK YARBROUGH Attending Clinician Unavailable Leticia Rowland Attending Clinician [phone] Dirk Yarbrough MD Attending Clinician [phone] Faye Portillo LVN Attending Clinician [phone] Pia Reddy Attending Clinician [phone] Vinnie Navaror Attending Clinician Unavailable OSWALD MURPHY Admitting Clinician Unavailable Oswald Murphy MD Admitting Clinician [phone] DIYA CHOWDHURY Admitting Clinician UnavailLeticia Gaytan Admitting Clinician Unavailable JESSICA PRADO Admitting Clinician Unavailable Jessica Prado MD Admitting Clinician [phone] Payers Payer Name Policy Type Policy Number Effective Date Expirati on Date Source Problems Condition Name Condition Details Condition Category Status Onset Date Resolution Date Last Treatment Date Treating Clinician Comments Source Alcohol withdrawal syndrome with complicati on Alcohol withdrawal syndrome with complicati on Disease Active 2-19 00:00: 00 [facility] Type 2 diabetes mellitus with other specified complicati on Type 2 diabetes mellitus with other specified complicati on Disease Active - 00:00: 00 [facility] Dyslipidem ia Dyslipidem ia Disease Active 12-29 00:00: 00 [facility] Chest pain, unspecifie d type Chest pain, unspecifie d type Disease Active 7- 00:00: 00 [facility] Priapism Priapism Disease Active 2013-06- 00:00: 00 [facility] Allergies, Adverse Reactions, Alerts Allergy [...] s DA Active U 3-29 00:00: 00 [facility] No Known Drug Allergie s DA Active U 2019-06 2-16 00:00: 00 [facility] No Known Drug Allergie s DA Active U 2019-06 2-15 00:00: 00 [facility] No Known Drug Allergie s DA Active U 2019-06 00:00: 00 [facility] Trazodon e Propensi ty to adverse reaction s Active Other - See comments 10-06 00:00: 00 [facility] TRAZODON E DRUG INGREDI Active Other-Cmnt 10-06 00:00: 00 [facility] Social History Social Habit Start Date Stop Date Quantity Comments Source History of tobacco use Cigarette Smoker [facility] Alcoholic beverage intake 2023-11-07 00:00:00 2023-11-07 00:00:00 Current drinker of alcohol (finding) [facility] History of Social function 2023-11-07 00:00:00 2023-11-07 00:00:00 [facility] Exposure to SARS-CoV-2 (event) 2022-11-01 00:00:00 2022-11-11 13:57:00 Not sure [facility] Tobacco use and exposure 2022-08-10 00:00:00 2022-08-10 00:00:00 User of smokeless tobacco [facility] Alcohol intake 2022-08-10 00:00:00 2022-08-10 00:00:00 Current drinker of alcohol (finding) [facility] Tobacco Comment 2022-08-10 00:00:00 2022-08-10 00:00:00 1/2 a pack a day [facility] Sex assigned at 1970 00:00:00 1970 00:00:00 [facility] Smoking Status Start Date Stop Date Source Smokes tobacco daily 2022-08-10 00:00:00 [facility] Medications Ordered Medication Name Filled Medication Name Start Date Stop Date Current Medication? Ordering Clinician Indication Dosage Frequency Signature (SIG) Comments Components Source NaCl 0.9% (NS) bolus infusion 1,000 mL 11-11 19:45: 00 11-11 20:23 :00 No 1000mL at 999 mL/hr, 1,000 mL, IV Piggyback, ONCE, 1 dose, On Thu11/11/22 at 1445, STAT [facility] multivitami n tablet 1 tablet 08-12 15:00: 00 Yes 1{tbl} 1 tablet, Oral, DAILY, First dose on Thu08/12/22 at 0900, Until Discontinu ed, Routine [facility] foLIC acid (FOLATE) tablet 1 mg 08-12 15:00: 00 Yes 1mg 1 mg, Oral, DAILY, First dose on Thu08/12/22 at 0900, Until Discontinu ed, Routine [facility] foLIC acid 1 mg tablet 08-12 00:00: 00 09-12 04:59 :00 No [id number] 1mg Take 1 tablet by mouth in the morning for 30 days. [facility] oxazepam (SERAX) capsule 15 mg [...] Thu08/13/22 at 0600, Routine [Order 2 End] [facility] thiamine (VITAMIN B1) tablet 100 mg 08-11 16:15: 00 Yes 100mg 100 mg, Oral, DAILY, First dose on Thu08/11/22 at 1015, Until Discontinu ed, Routine [facility] enoxaparin (LOVENOX) injection 40 mg 08-10 23:00: 00 Yes 40mg 40 mg, Subcutaneo us, DAILY, First dose on Thu08/10/22 at 1700, Until Discontinu ed, Routine [facility] NaCl 0.9% (NS) IV infusion 1,000 mL 08-10 15:00: 00 Yes 1000mL at 125 mL/hr, IV Infusion, CONTINUOUS , Starting on Thu08/10/22 at 0900, Until Discontinu ed, Routine [facility] foLIC acid (FOLATE) 5 mg in NaCl 0.9% (NS) piggyback 08-10 15:00: 00 08-11 16:14 :47 No 5mg IV Piggyback, DAILY, First dose on Thu08/10/22 at 0900, Until Discontinu ed, 50 mL [facility] thiamine (VITAMIN B1) 100 mg in NaCl 0.9% (NS) piggyback 08-10 15:00: 00 08-10 16:08 :00 No 100mg IV Piggyback, DAILY, 1 dose, First dose on Thu08/10/22 at 0900, 50 mL [facility] LORazepam (ATIVAN) injection 2 mg 08-10 14:52: 57 Yes 2mg 2 mg, Slow IV Push, Q4HPRN, Starting on Thu08/10/22 at 0852, Until Discontinu ed, Routine, Seizures, Agitation, Anxiety [facility] Sliding Scale Insulin-Reg ular + Fsbg Testing 08-10 13:30: 00 Yes Subcutaneo us, AC+HS, First dose on Thu08/10/22 at 0730, Until Discontinu ed, Routine [facility] oxazepam (SERAX) capsule 15 mg 08-10 12:08: 05 Yes 15mg 15 mg, Oral, Q4HPRN, Starting on Thu08/10/22 at 0608, Until Discontinu ed, Routine, Only while awake for DBP equal to or greater than 100, HR equal to or greater than 100. [facility] dextrose 10% (D10W) bolus infusion 250 mL [...] blood glucose is < 80 mg/dL, repeat.
[facility] glucagon (GLUCAGEN DIAGNOSTIC KIT) injection 1 mg 08-10 12:03: 20 Yes 1mg 1 mg, Intramuscu lar, PRN, Starting on Thu08/10/22 at 0603, Until Discontinu ed, JACIEL, Blood Glucose < or = 70 mg/dL and patient is NPO, unable to swallow or has mental changes. [facility] ondansetron (ZOFRAN (PF)) injection 4 mg 08-10 12:02: 53 Yes 4mg 4 mg, Slow IV Push, Q6HPRN, Starting on Thu08/10/22 at 0602, Until Discontinu ed, Routine, Nausea and Vomiting (N/V) [facility] ibuprofen (MOTRIN IB) tablet 200 mg 08-10 12:02: 45 Yes 200mg 200 mg, Oral, Q6HPRN, Starting on Thu08/10/22 at 0602, Until Discontinu ed, Routine, Pain (scale 1-3) [facility] NaCl 0.9% (NS) bolus infusion 1,000 mL 08-10 10:15: 00 08-10 13:00 :00 No 1000mL at 999 mL/hr, 1,000 mL, IV Infusion, ONCE, 1 dose, On Thu08/10/22 at 0415, STAT [facility] LORazepam (ATIVAN) injection 0.5 mg 08-10 09:15: 00 08-10 09:19 :00 No .5mg 0.5 mg, Slow IV Push, ONCE, 1 dose, On Thu08/10/22 at 0315, STAT [facility] LORazepam (ATIVAN) injection 1 mg 08-10 08:00: 00 08-10 07:05 :00 No 1mg 1 mg, Slow IV Push, ONCE NOW, 1 dose, On 08/10/22 at 0200, STAT [facility] thiamine (VITAMIN B1) injection 100 mg 08-10 06:45: 00 08-10 06:52 :00 No 100mg 100 mg, Intravenou s, ONCE, 1 dose, [facility] 08/10/22 [facility] 0045[facility]AN[facility] 1 mg 08-10 05:15: 00 08-10 05:22 :00 No 1mg 1 mg, Slow IV Push, ONCE, 1 dose, On 08/09/22 at 2315, STAT [facility] ketorolac (TORADOL) injection 15 mg 2021-06 0-16 16:00: 00 04-06 14:50 :00 No 15mg 15 mg, Slow IV Push, ONCE, 1 dose, On 04/06/22 at 1100, [facility] ondansetron (ZOFRAN (PF)) injection 4 mg 2021-06 0-16 15:45: 00 04-06 14:50 :00 No 4mg 4 mg, Slow IV Push, ONCE, 1 dose, On 04/06/22 at 1045, [facility] oxazepam (SERAX) capsule 15 mg 12-31 06:28: 17 01-01 06:29 :00 No 15mg 15 mg, Oral, Q12H TAPER, 2 doses, First dose on Thu12/31/21 at 0130, Last dose on Thu12/31/21 at 1330, Routine [facility] multivitami n tablet 12-31 00:00: 00 Yes [id number] 1{tbl} Take 1 tablet by mouth in the morning. [facility] thiamine 100 mg tablet 12-31 00:00: 00 Yes [id number] 100mg Take 1 tablet by mouth in the morning. [facility] aspirin 81 mg chewable tablet 12-31 00:00: 00 Yes [id number] 81mg Take 1 tablet by mouth in the morning. [facility] foLIC acid 1 mg tablet 12-31 00:00: 00 01-31 04:59 :00 No [id number] 1mg Take 1 tablet by mouth in the morning for 30 days. [facility] metFORMIN 500 mg tablet 12-30 00:00: 00 Yes [id number] 500mg Take 1 tablet by mouth in the morning and 1 tablet in the evening. Take with meals. [facility] aspirin chewable tablet 81 mg 12-29 14:00: 00 Yes 81mg 81 mg, Oral, DAILY, First dose on Thu12/29/21 at 0900, Until Discontinu ed, Routine [facility] sulfur hexafluorid e microsphr (LUMASON) injection 5 mL 12-29 13:45: 00 12-29 13:45 :00 No [id number] 5mL 5 mL, Intravenou s, ONCE, 1 dose, On 12/29/21 at 0845, Routine
member services coordinator approving Restricted medication : STEFANIE GORMAN [facility] enoxaparin (LOVENOX) injection 40 mg 12-29 13:00: 00 Yes 40mg 40 mg, Subcutaneo us, Q24H, First dose on Thu12/29/21 at 0800, Until Discontinu ed, Routine [facility] Sliding Scale Insulin - Lispro (HumaLOG) + Fsbg Testing 12-29 13:00: 00 Yes Subcutaneo us, TID MEALS+HS, First dose on Thu12/29/21 at 0800, Until Discontinu ed, Routine [facility] diazePAM (VALIUM) injection 10 mg 12-29 05:30: 00 12-29 04:40 :00 No 10mg 10 mg, Intravenou s, ONCE, 1 dose, On Thu12/29/21 at 0030, Routine [facility] diazePAM (VALIUM) injection 10 mg 12-29 04:15: 00 12-29 03:17 :00 No 10mg 10 mg, Intravenou s, ONCE, 1 dose, On 12/28/21 at 2315, Routine [facility] diazePAM (VALIUM) injection 5 mg 12-29 03:45: 01 Yes 5mg 5 mg, Intravenou s, QIDPRN, Starting on 12/28/21 at 2245, Until Discontinu ed, Routine, Seizures, Agitation [facility] foLIC acid (FOLATE) tablet 1 mg 12-29 03:45: 00 Yes 1mg 1 mg, Oral, DAILY, First dose on 12/28/21 at 2245, Until Discontinu ed, Routine [facility] thiamine (VITAMIN B1) tablet 100 mg 12-29 03:45: 00 Yes 100mg 100 mg, Oral, DAILY, First dose (after last modificati on) on 12/28/21 at 2245, Until Discontinu ed, Routine [facility] glucagon (GLUCAGEN DIAGNOSTIC KIT) injection 1 mg 12-29 03:42: 19 Yes 1mg 1 mg, Intramuscu lar, PRN, Starting on 12/28/21 at 2242, Until Discontinu ed, JACIEL, Blood Glucose < or = 70 mg/dL and patient is unable to swallow or has mental changes. [facility] dextrose 10% (D10W) bolus infusion [...] blood glucose is < 80 mg/dL, repeat.
[facility] LORazepam (ATIVAN) injection 1 mg 12-29 03:30: 00 12-29 02:32 :00 No 1mg 1 mg, Intravenou s, ONCE, 1 dose, On 12/28/21 at 2230, Routine
Is the medication being used for status epilepticu s? No [facility] oxazepam (SERAX) capsule 15 mg 12-29 00:28: 20 Yes 15mg 15 mg, Oral, Q4HPRN, Starting on 12/28/21 at 1928, Until Discontinu ed, Routine, Only while awake for DBP equal to or greater than 100, HR equal to or greater than 100. [facility] ondansetron (ZOFRAN (PF)) injection 4 mg 12-29 00:23: 47 Yes 4mg 4 mg, Slow IV Push, Q6HPRN, Starting on 12/28/21 at 1923, Until Discontinu ed, Routine, Nausea and Vomiting (N/V) [facility] acetaminoph en (TYLENOL) tablet 650 mg 12-29 00:23: 37 Yes 650mg 650 mg, Oral, Q6HPRN, Starting on 12/28/21 at 1923, Until Discontinu ed, Routine, Pain (scale 1-3), Temp > 38.5 C [facility] chlordiazeP OXIDE (LIBRIUM) capsule 25 mg 12-28 23:15: 00 12-28 23:24 :00 No 25mg 25 mg, Oral, ONCE, 1 dose, On 12/28/21 at 1815, [facility] NaCl 0.9% (NS) bolus infusion 2,000 mL 12-28 22:45: 00 12-28 23:18 :00 No 2000mL at 999 mL/hr, 2,000 mL, IV Infusion, ONCE, 1 dose, On 12/28/21 at 1745, JACIEL [facility] LORazepam (ATIVAN) injection 1 mg 12-28 20:45: 00 12-28 20:49 :00 No 1mg 1 mg, Slow IV Push, ONCE, 1 dose, On 12/28/21 at 1545, STAT
Is the medication being used for status epilepticu s? No [facility] acetaminoph en (TYLENOL) 500 mg tablet 10-06 00:00: 00 Yes 500mg Take 1 Tab by mouth every 6 (six) hours as needed for Pain. [facility] Vital Signs Vital Name Observation Time Observation Value Comments S ource Systolic blood pressure 2023-12-13 05:16:00 125 mm[Hg] [facility] Diastolic blood pressure 2023-12-13 05:16:00 90 mm[Hg] [facility] Heart rate 2023-12-13 05:16:00 77 /min [facility] Body temperature 2023-12-13 05:16:00 36.06 Theresa [facility] Respiratory rate 2023-12-13 05:16:00 16 /min [facility] Oxygen saturation in Arterial blood by Pulse oximetry 2023-12-13 05:16:00 98 /min [facility] Body height 2023-12-13 01:35:00 157.5 cm [facility] Body weight 2023-12-13 01:35:00 65.772 kg [facility] BMI 2023-12-13 01:35:00 26.52 kg/m2 [facility] Systolic blood pressure 2023-11-05 21:00:00 106 mm[Hg] [facility] Diastolic blood pressure 2023-11-05 21:00:00 70 mm[Hg] [facility] Heart rate 2023-11-05 21:00:00 74 /min [facility] Body temperature 2023-11-05 21:00:00 36.5 Theresa [facility] Respiratory rate 2023-11-05 21:00:00 21 /min [facility] Oxygen saturation in Arterial blood by Pulse oximetry 2023-11-05 21:00:00 98 /min [facility] Body height 2023-11-05 19:59:00 160 cm [facility] Body weight 2023-11-05 19:59:00 63.504 kg [facility] BMI 2023-11-05 19:59:00 24.80 kg/m2 [facility] Systolic blood pressure 2022-11-11 20:31:31 116 mm[Hg] [facility] Diastolic blood pressure 2022-11-11 20:31:31 77 mm[Hg] [facility] Heart rate 2022-11-11 20:31:31 84 /min [facility] Respiratory rate 2022-11-11 20:31:31 12 /min [facility] Oxygen saturation in Arterial blood by Pulse oximetry 2022-11-11 20:31:31 90 /min [facility] Body temperature 2022-11-11 18:49:00 37.11 Theresa [facility] Body height 2022-11-11 18:49:00 160 cm [facility] Body weight 2022-11-11 18:49:00 68.04 kg [facility] BMI 2022-11-11 18:49:00 26.57 kg/m2 [facility] Body temperature 2022-08-11 14:00:00 36.5 Theresa [facility] Systolic blood pressure 2022-08-11 10:00:00 116 mm[Hg] [facility] Diastolic blood pressure 2022-08-11 10:00:00 71 mm[Hg] [facility] Heart rate 2022-08-11 10:00:00 70 [facility] Respiratory rate 2022-08-11 10:00:00 16 /min [facility] Body weight 2022-08-11 10:00:00 65.499 kg [facility] BMI 2022-08-11 10:00:00 25.58 kg/m2 [facility] Oxygen saturation in Arterial blood by Pulse oximetry 2022-08-11 10:00:00 100 /min [facility] Body height 2022-08-10 22:12:00 160 cm [facility] Systolic blood pressure 2022-04-06 16:00:00 125 mm[Hg] [facility] Diastolic blood pressure 2022-04-06 16:00:00 75 mm[Hg] [facility] Heart rate 2022-04-06 16:00:00 87 /min [facility] Respiratory rate 2022-04-06 16:00:00 22 /min [facility] Oxygen saturation in Arterial blood by Pulse oximetry 2022-04-06 16:00:00 98 /min [facility] Body temperature 2022-04-06 14:41:00 37 Theresa [facility] Body height 2022-04-06 14:41:00 160 cm [facility] Body weight 2022-04-06 14:41:00 63.504 kg [facility] BMI 2022-04-06 14:41:00 24.80 kg/m2 [facility] Systolic blood pressure 2022-01-20 02:27:00 121 mm[Hg] [facility] Diastolic blood pressure 2022-01-20 02:27:00 75 mm[Hg] [facility] Heart rate 2022-01-20 02:27:00 79 /min [facility] Respiratory rate 2022-01-20 02:27:00 12 /min [facility] Oxygen saturation in Arterial blood by Pulse oximetry 2022-01-20 02:27:00 98 /min [facility] Body temperature 2022-01-19 22:19:00 36.44 Theresa [facility] Body weight 2022-01-19 22:19:00 60.328 kg [facility] BMI 2022-01-19 22:19:00 23.56 kg/m2 [facility] Systolic blood pressure 2021-12-30 20:52:00 134 mm[Hg] [facility] Diastolic blood pressure 2021-12-30 20:52:00 76 mm[Hg] [facility] Heart rate 2021-12-30 20:52:00 67 /min [facility] Body temperature 2021-12-30 20:26:00 36.67 Theresa [facility] Oxygen saturation in Arterial blood by Pulse oximetry 2021-12-30 20:26:00 99 /min [place] [facility] Respiratory rate 2021-12-30 16:21:00 18 /min [facility] Body weight 2021-12-30 08:27:00 60.464 kg [facility] BMI 2021-12-30 08:27:00 23.61 kg/m2 [facility] Body height 2021-12-29 01:29:00 160 cm [facility] Procedures Procedure Date / Time Performed Performing Clinician Source TROPONIN I 2023-12-13 03:32:00 Rafael Byrd [facility] XR CHEST 1 VW 2023-12-13 02:18:14 Rafael Byrd [facility] LIPASE 2023-12-13 02:07:00 Rafael Byrd [facility] TROPONIN I 2023-12-13 02:07:00 Rafael Byrd [facility] COMP. METABOLIC PANEL ([id number]) 2023-12-13 02:07:00 Rafael Byrd [facility] CBC WITH DIFF 2023-12-13 02:07:00 Rafael Byrd [facility] XR CHEST 1 VW 2023-11-05 20:09:00 Sulaiman Hawkins [facility] LIPASE 2023-11-05 20:01:00 Sulaiman Hawkins [facility] MAGNESIUM 2023-11-05 20:01:00 Sulaiman Hawkins [facility] TROPONIN I 2023-11-05 20:01:[address] [facility] COMP. METABOLIC PANEL ([id number]) 2023-11-05 20:01:00 Sulaiman Hawkins [facility] CBC WITH DIFF 2023-11-05 20:01:00 Sulaiman Hawkins [facility] N-TERMINAL PRO-BNP 2023-11-05 20:01:00 Sulaiman Hawkins [facility] MAGNESIUM 2022-11-11 19:05:00 [facility] BASIC METABOLIC PANEL (NA, K, CL, CO2, GLUCOSE, BUN, CREATININE, CA) 2022-11-11 19:[facility]-11 19:05:00 [facility] CBC WITH DIFF 2022-11-11 19:05:00 Hemant Klein [facility] POCT GLUCOSE (AUTOMATED) 2022-08-11 13:36:00 Arvind Prado [facility] PHOSPHORUS 2022-08-11 10:35:00 [facility] MAGNESIUM 2022-08-11 10:35:00 [facility] AMMONIA, PLASMA 2022-08-11 10:35:00 Jessica Prado [facility] COMP. METABOLIC PANEL ([id number]) 2022-08-11 10:35:[address] [facility] CBC WITH DIFF 2022-08-11 10:35:00 Oswald Murphy [facility] POCT GLUCOSE (AUTOMATED) 2022-08-11 02:15:00 Arvind Prado [facility] POCT GLUCOSE (AUTOMATED) 2022-08-10 23:10:00 Arvind Prado [facility] POCT GLUCOSE (AUTOMATED) 2022-08-10 18:20:00 Arvind Prado [facility] POCT GLUCOSE (AUTOMATED) 2022-08-10 14:11:00 Arvind Prado [facility] POCT GLUCOSE (AUTOMATED) 2022-08-10 10:59:00 Gopal Driscoll [facility] COVID-19 (ID NOW RAPID TESTING) 2022-08-10 07:17:00 Rayray Driscoll [facility] LAB ONLY COVID INTERPRETATION 2022-08-10 07:17:00 Rayray Driscoll [facility] HB ECG ROUTINE & RHYTHM STRIP 2022-08-10 06:03:48 Rayray Driscoll [facility] URINALYSIS 2022-08-10 05:46:[address] [facility] URINE DRUG (IMMUNOASSAY) - COMPREHENSIVE DRUG SCREEN W/O REFLEX 2022-08-10 05:45:00 Rayray Driscoll [facility] CREATINE KINASE 2022-08-10 05:16:00 [facility] 05:16:[address] [facility] [address] [facility] MAGNESIUM 2022-08-10 05:16:00 Rayray Driscoll [facility] TROPONIN I 2022-08-10 05:16:00 Rayray Driscoll [facility] COMP. METABOLIC PANEL ([id number]) 2022-08-10 05:16:00 Rayray Driscoll [facility] ETHANOL 2022-08-10 05:16:00 Rayray Driscoll [facility] CBC WITH DIFF 2022-08-10 05:16:00 Rayray Driscoll [facility] N-TERMINAL PRO-BNP 2022-08-10 05:16:00 Rayray Driscoll [facility] CRITICAL CARE 2022-08-10 04:52:00 Rayray Driscoll [facility] XR CHEST 1 VW 2022-04-06 14:51:50 Diya Chowdhury [facility] LIPASE 2022-04-06 14:42:00 Diya Chowdhury [facility] TROPONIN I 2022-04-06 14:42:00 Diya [facility]dh[facility] COMP. METABOLIC PANEL ([id number]) 2022-04-06 14:42:00 Diya Chowdhury [facility] CBC WITH DIFF 2022-04-06 14:42:00 Diya Chowdhury [facility] PROTHROMBIN TIME / INR 2022-04-06 14:42:00 Diya Chowdhury [facility] ACTIVATED PARTIAL THRMPLAS NELDA 2022-04-06 14:42:00 [facility] LACTIC ACID WHOLE BLOOD 2022-01-20 00:22:00 Leticia Baldwin [facility] URINE DRUG (IMMUNOASSAY) - COMPREHENSIVE DRUG SCREEN 2022-01-19 23:10:00 Leticia Baldwin [facility] URINALYSIS 2022-01-19 23:10:00 eLticia Baldwin [facility] TROPONIN I 2022-01-19 23:00:[address] [facility] COMP. METABOLIC PANEL ([id number]) 2022-01-19 23:00:00 Leticia Baldwin [facility] LITHIUM 2022-01-19 23:00:[address] [facility] ETHANOL 2022-01-19 23:00:[address] [facility] CBC WITH DIFF 2022-01-19 23:00:00 Leticia Baldwin [facility] COVID-19 (ID NOW RAPID TESTING) 2022-01-19 23:00:00 Leticia Baldwni [facility] CT HEAD WO CONTRAST 2022-01-19 22:49:00 Leticia Baldwin [facility] XR CHEST 1 VW 2022-01-19 22:41:00 Leticia Baldwin [facility] POCT GLUCOSE (AUTOMATED) 2022-01-19 22:25:00 Leticia Baldwin [facility] POCT GLUCOSE (AUTOMATED) 2021-12-30 21:55:00 Arvind Prado [facility] POCT GLUCOSE (AUTOMATED) 2021-12-30 16:21:00 Arvind Prado [facility] POCT GLUCOSE (AUTOMATED) 2021-12-30 12:30:00 Arvind Prado [facility] HEPATIC FUNCTION PANEL ([id number]) (ALB,T.PRO,BILI T,BU/BC,ALT,AST,ALK PHOS) 2021-12-30 09:28:00 Maira Gaitan [facility] POCT GLUCOSE (AUTOMATED) 2021-12-30 02:11:00 [facility] Pr[facility] [place] POCT GLUCOSE (AUTOMATED) 2021-12-29 21:41:00 Arvind Prado [facility] POCT GLUCOSE (AUTOMATED) 2021-12-29 16:37:00 Arvind Prado [facility] [place] TRANSTHORACIC ECHO (TTE) COMPLETE W/ CONTRAST 2021-12-29 13:05:00 Jessica Prado [facility] [place] POCT GLUCOSE (AUTOMATED) 2021-12-29 12:41:00 Arvind Prado [facility] TROPONIN I 2021-12-29 09:42:00 [facility] TROPONIN I 2021-12-29 04:55:00 [facility] CT HEAD WO CONTRAST 2021-12-28 21:18:22 Poppy Renteria [facility] AMMONIA, PLASMA 2021-12-28 21:00:00 Pia Renteria [facility] COVID-19 (ID NOW RAPID TESTING) 2021-12-28 20:42:00 Pia Renteria [facility] LAB ONLY COVID INTERPRETATION 2021-12-28 20:42:00 Pia Renteria [facility] URINE DRUG (IMMUNOASSAY) - COMPREHENSIVE DRUG SCREEN W/O REFLEX 2021-12-28 20:42:00 Pia Renteria [facility] URINALYSIS 2021-12-28 20:40:00 Pia Renteria [facility] N-TERMINAL PRO-BNP 2021-12-28 20:40:00 Corina Renteria [facility] TROPONIN I 2021-12-28 20:40:00 Pia Renteria [facility] THYROID STIMULATING HORMONE 2021-12-28 20:40:00 Jessica Prado [facility] [place] COMP. METABOLIC PANEL (46349) 2021-12-28 20:40:00 Pia Renteria [facility] LIPID PANEL (33580)(TOTAL CHOLESTEROL, TRIGLYCERIDES, HDL) 2021-12-28 20:40:00 Demetrius Langford [facility] ETHANOL 2021-12-28 20:40:00 Demetrius Langford [facility] CBC WITH DIFF 2021-12-28 20:40:00 Pia Renteria [facility] GLYCOSYLATED HEMOGLOBIN (A1C) 2021-12-28 20:40:00 Jessica Prado [facility] PROTHROMBIN TIME / INR 2021-12-28 20:40:00 Lesly Renteria [facility] XR CHEST 1 VW 2021-12-28 20:16:00 Pia Renteria [facility] HB ECG ROUTINE & RHYTHM STRIP 2021-12-28 20:04:59 Pia Renteria [facility] Encounters Start Date/Time End Date/Time Encounter Type Admission Type Attending [facility] Care Facility Care Department Encounter ID Source 2021-09-17 16:45:00 Inpatient [facility] [id number] [facility] 2020-06-06 16:07:00 Inpatient [facility] [id number] [facility] 2020-06-06 06:20:00 Inpatient [facility] [id number] [facility] 2020-06-05 19:35:00 Inpatient [facility] [id number] [facility] 2020-05-23 19:53:00 Inpatient [facility] [id number] [facility] 2020-05-23 19:53:00 Inpatient [facility] [id number] [facility] 2023-12-12 20:44:00 2023-12-13 00:22:00 Emergency Rafael Byrd [facility] 1.2.840.114 350.1.13.10 4.2.7.2.686 [id number] [facility] 2023-11-05 14:54:00 2023-11-05 16:27:00 Emergency Sulaiman Hawkins [facility] 1.2.840.114 350.1.13.10 4.2.7.2.686 [id number] [id number] [facility] 2022-11-11 13:50:00 2022-11-11 16:07:00 Emergency X HEMANT KLEIN [facility] ERT [id number] [facility] 2022-11-11 13:50:00 2022-11-11 16:07:00 Emergency Hemant Klein [facility] 1.2.840.114 350.1.13.10 4.2.7.2.686 [id number] [facility] 2022-10-14 20:59:00 2022-10-14 20:59:00 Emergency [facility] [id number] [facility] 2022-10-14 20:59:00 2022-10-14 20:59:00 Emergency Emergency Pan Pinto [facility] [id number] [facility] 2022-08-09 22:59:00 2022-08-11 13:02:00 Outpatient X JESSICA PRADO [facility] MARGO [id number] [facility] 2022-08-09 22:59:00 2022-08-11 13:02:00 Emergency Mukund DriscollJessica Avilez [facility] 1.2.840.114 350.1.13.10 4.2.7.2.686 [id number] [facility] 2022-04-06 09:38:00 2022-04-06 11:42:00 Emergency X DIYA CHOWDHURY [facility] ERT [id number] [facility] 2022-04-06 09:38:00 2022-04-06 11:42:00 Emergency Toddjose l Diya [facility] 1.2.840.114 350.1.13.10 4.2.7.2.686 [id number] [facility] 2022-03-07 12:38:00 2022-03-07 12:38:00 Emergency [facility] [id number] [facility] 2022-03-07 12:38:00 2022-03-07 12:38:00 Emergency Emergency Fidel Cuellar [facility] [id number] [facility] 2022-01-19 17:18:00 2022-01-19 22:00:00 Emergency X DIRK YARBROUGH [facility] ERT [id number] [facility] 2022-01-19 17:18:00 2022-01-19 22:00:00 Emergency Nicolasa Leticia Dirk Sutton [facility] 1.2.840.114 350.1.13.10 4.2.7.2.686 [id number] [id number] [facility] 2021-12-31 00:00:00 2021-12-31 00:00:00 Transition of Care Bandar Faye MIKMarlon MASSIEL NAVARRO 1.2.840.114 350.1.13.10 4.2.7.2.686 [id number] [facility] 2021-12-28 14:53:00 2021-12-30 17:42:00 Inpatient X JESSICA PRADO [facility] MARGO [id number] [facility] 2021-12-28 14:53:00 2021-12-30 17:42:00 Hospital Encounter Pia Renteria Jelani [facility] 1.2.840.114 350.1.13.10 4.2.7.2.686 [id number] [facility] 2021-09-17 16:47:00 2021-09-17 16:47:00 Emergency [facility] [id number] [facility] 2020-06-06 16:07:00 2020-06-06 16:07:00 Emergency [facility] [id number] [facility] Results Test Description Test Time Test Comments Results Result Co mments Source [facility] [id number] 02:57:27* Test Item Value Reference Range Interpretation Comme nts TROPONIN I (test code = 5542974437) 0.003 ng/mL <=0.034 JUAN ALBERTO (test code [...] of biotin. Lab Interpretation (test code = 39310-1) Normal [facility]. METABOLIC PANEL (69209)2023-12-13 02:46:25* Test Item Value Reference Range Interpretation Comme nts NA (test code = 3079708946) 144 mmol/L 135-145 K (test code = 6759013112) 3.9 mmol/L 3.5-5.0 CL (test code = 7915859912) 110 mmol/L 98-108 H CO2 TOTAL (test code = 3635155261) 20 mmol/L 23-31 L AGAP (test code = 7157344222) 14 2-16 BUN (test code = 6966812121) 13 mg/dL 7-23 GLUCOSE (test code = 6780593781) 163 mg/dL 70-110 H CREATININE (test code = 2160-0) 0.63 mg/dL 0.60-1.25 TOTAL BILI (test code = 0445332004) 0.3 mg/dL 0.1-1.1 CALCIUM (test code = 4116168825) 9.0 mg/dL 8.6-10.6 T PROTEIN (test code = 6168028393) 7.2 g/dL 6.3-8.2 ALBUMIN (test code = 2816882992) 4.1 g/dL 3.5-5.0 ALK PHOS (test code = 6613243159) 129 U/L 34-122 H ALTv (test code = 1742-6) 15 U/L 5-50 AST(SGOT) (test code = 0199180876) 34 U/L 13-40 eGFR (test code = 90838-4) 113.7 mL/min/1.73m2 CKD-EPI eGFR (2020). Assuming creatinine has been stable day-to-day for at least three months, the eGFR indicates Category G1 (>= 90 mL/min/1.73 m2) Lab Interpretation (test code = 06314-6) [facility], [id number] 02:45:25* Test Item Value Reference Range Interpretation Comme nts LIPASE (test code = 3111467468) 47 U/L 0-220 Lab Interpretation (test cod e = 92531-2) Normal [facility] CHEST 1 [id number] 02:40:35History: chest pain . Exam: XR CHEST 1 VW Date: 12/12/2023 9:15 PM Ordering provider: RAFAEL BYRD Technical quality: Adequate Comparison: 11/05/2023. Findings: Frontal view of the chest is obtained. The cardiac silhouette is normal in size. No evidence of infiltrate,pleural effusion, CHF, or pneumothorax.[facility] [place] WITH [id number] 02:33:48* Test Item Value Reference Range Interpretation [...] 33.2 g/dL 31.2-35.0 RDW-SD (test code = 61137-8) 54.4 fL 38.5-51.6 H RDW-CV (test code = 788-0) 15.9 % 12.1-15.4 H PLT (test code = 777-3) 318 150-328 MPV (test code = 32222-0) 8.5 fL 9.8-13.0 L NRBC/100 WBC (test code = 0501843515) 0.0 0.0-10.0 NRBC x10^3 (test code = 7588394188) See_Comment [Automated messa ge] The system which generated this result transmitted reference range: 10*3/?L. The reference range was not used to interpret this result as normal/abnormal. GRAN MAT (NEUT) % (test code = 770-8) 50.1 % IMM GRAN % (test code = 5101817394) 0.40 % LYMPH % (test code = 736-9) 37.6 % MONO % (test code = 5905-5) 6.8 % EOS % (test code = 713-8) 4.1 % BASO % (test code = 706-2) 1.0 % GRAN MAT x10^3(ANC) (test code = 0729305004) 3.66 10*3/uL 1.99-6.95 IMM GRAN x10^3 (test code = 5957667090) 0.03 10*3/uL 0.00-0.06 LYMPH x10^3 (test code = 731-0) 2.75 10*3/uL 1.09-3.23 MONO x10^3 (test code = 742-7) 0.50 10*3/uL 0.36-1.02 EOS x10^3 (test code = 711-2) 0.30 10*3/uL 0.06-0.53 BASO x10^3 (test code = 704-7) 0.07 10*3/uL 0.01-0.09 Lab Interpretation (test code = 34948-5) [facility]normal [facility] 1 [id number] 20:15:30HISTORY: Chest pain. TECHNIQUE: Portable AP view of the chest is obtained. Comparison is beingmade with 04/06/2022 study. FINDINGS: No acute pneumonia. No pneumothorax or pleural effusion orpulmonarycongestion detected. Cardiac size is within normal limits.Prominent osteophytes are seen along right left vertebral margins at middleand lower thoracic spines. CONCLUSIONS: No signs of acute cardiopul monary disease.[facility]OL2023-[facility]-23 19:45:56 ALCOHOL<10mg/dL11/11/2022 2:45 PM [facility]<10 Yqjrmdrx31-705 Toxic>100 Depression of DIRECTOR PRODUCT SAFETY>400 [facility] (NA, K, CL, CO2, GLUCOSE, BUN, CREATININE, CA)2022-11-11 19:41:47* Test Item Value Reference Range Interpretation Comme nts NA (test code = 4279008565) 138 mmol/L 135-145 K (test code = 9914729237) 4.8 mmol/L 3.5-5.0 CL (test code = 8135798535) 103 mmol/L 98-108 CO2 TOTAL (test code = 8297222143) 26 mmol/L 23-31 AGAP (test code = 7911769000) 9 2-16 BUN (test code = 7579417669) 17 mg/dL 7-23 GLUCOSE (test code = 8033405010) 219 mg/dL 70-110 H CREATININE (test code = 7308397513) 0.72 mg/dL 0.60-1.25 CALCIUM (test code = 3999806702) 10.0 mg/dL 8.6-10.6 eGFR (test code = 0356303921) 114.6 mL/min/1.73m2 JUAN ALBERTO (test code = [...] imaging tests). Lab Interpretation (test code = 64121-0) Abnormal [facility]2023-[facility]-23 19:41:47* Test Item Value Reference Range Interpretation Comme nts MAGNESIUM (test code = 2981548622) 1.8 mg/dL 1.7-2.4 Lab Interpretation (test cod e = 36261-5) Normal [facility] [place]CB WITH [id number] 19:25:26* Test Item Value Reference Range Interpretation Comme nts WBC (test code = 6690-2) 6.82 See_Comment [Automated [employer]] The system which generated this result transmitted reference range: 4.20 - 10.70 10*3/?L. The reference range was not used to interpret this result as normal/abnormal. RBC (test code = 789-8) 4.98 See_Comment [Automated [employer]] The system which generated this result transmitted [...] 33.9 g/dL 31.2-35.0 RDW-SD (test code = 81780-4) 46.0 fL 38.5-51.6 RDW-CV (test code = 788-0) 13.5 % 12.1-15.4 PLT (test code = 777-3) 237 See_Comment [Automated [employer]] The system which generated this result transmitted reference range: 150 - 328 10*3/?L. The reference range was not used to interpret this result as normal/abnormal. MPV (test code = 69981-3) 8.9 fL 9.8-13.0 L NRBC/100 WBC (test code = 6940514256) 0.0 See_Comment [Automated me ssage] The system which generated this result transmitted reference range: 0.0 - 10.0 /100 WBCs. The reference range was not used to interpret this result as normal/abnormal. NRBC x10^3 (test code = 5289728955) See_Comment [Automated messa ge] The system which generated this result transmitted reference range: 10*3/?L. The reference range was not used to interpret this result as normal/abnormal. GRAN MAT (NEUT) % (test code = 770-8) 71.2 % IMM GRAN % (test code = 5260297898) 0.30 % LYMPH % (test code = 736-9) 18.2 % MONO % (test code = 5905-5) 8.4 % EOS % (test code = 713-8) 1.0 % BASO % (test code = 706-2) 0.9 % GRAN MAT x10^3(ANC) (test code = 0419788152) 4.86 10*3/uL 1.99-6.95 IMM GRAN x10^3 (test code = 3798251433) 0.00-0.06 LYMPH x10^3 (test code = 731-0) 1.24 10*3/uL 1.09-3.23 MONO x10^3 (test code = 742-7) 0.57 10*3/uL 0.36-1.02 EOS x10^3 (test code = 711-2) 0.07 10*3/uL 0.06-0.53 BASO x10^3 (test code = 704-7) 0.06 10*3/uL 0.01-0.09 Lab Interpretation (test code = 50611-0) Abnormal [facility], Urinalysis Rflx Cult/Trros3542-80-13 22:20:00* Test Item Value Reference Range Interpretation Comme nts Color,Urine (test code = UCOL) Yellow Yellow Clarity,Urine (test code = UCLAR) Clear Clear Ph, Urine (test code = UPH) 7.0 5.0-9.0 N Specific Tie [place],Urine (test code = USG) 1.020 1.005-1.030 N [...] code = ULEU) Negative mg/dL Negative Drug Screen,[id number] 22:20:00* Test Item Value Reference Range Interpretation [...] UPROP) Negative Negative Complete Blood Count Auto [id number] 21:21:00* Test Item Value Reference Range Interpretation [...] code = NRBCP) 0 % Comprehensive Metabolic [id number] 21:21:00* Test Item Value Reference Range Interpretation [...] a race coefficient. Additional information canbe found at:[email or web address]_[email or web address] 5.pdf ([email or web address]) [Automated message] The system [...] = ALP) 134 U/L 46-116 H Ethanol Izins1736-99-00 21:21:00* Test Item Value Reference Range Interpretation Comme nts Ethanol (test code = ETOH) < 3 mg/dL The pharmacologi yudy response to blood alcohol levels mayvary from individual to individual. The fatal concentrationhas been reported to be >400mg/dL. POCT GLUCOSE (AUTOMATED)2022-08-11 13:40:35* Test Item Value Reference Range Interpretation Comme nts POCT GLU (test code = 5217119564) 121 mg/dL 70-110 H Lab Interpretation (test cod e = 59747-8) Abnormal [facility] GLUCOSE (AUTOMATED)2022-08-11 02:18:58* Test Item Value Reference Range Interpretation Comme nts POCT GLU (test code = 5414723095) 183 mg/dL 70-110 H Lab Interpretation (test cod e = 56470-9) Abnormal [facility] GLUCOSE (AUTOMATED)2022-08-10 23:16:11* Test Item Value Reference Range Interpretation Comme nts POCT GLU (test code = 1654116239) 176 mg/dL 70-110 H Lab Interpretation (test cod e = 70504-1) Abnormal [facility] GLUCOSE (AUTOMATED)2022-08-10 18:22:51* Test Item Value Reference Range Interpretation Comme nts POCT GLU (test code = 6366508313) 165 mg/dL 70-110 H Lab Interpretation (test cod e = 45096-9) Abnormal [facility] GLUCOSE (AUTOMATED)2022-08-10 14:18:05* Test Item Value Reference Range Interpretation Comme nts POCT GLU (test code = 3064810412) 138 mg/dL 70-110 H Lab Interpretation (test cod e = 74746-9) Abnormal [facility] GLUCOSE (AUTOMATED)2022-08-10 11:01:21* Test Item Value Reference Range Interpretation Comme nts POCT GLU (test code = 0179456650) 143 mg/dL 70-110 H Lab Interpretation (test cod e = 35750-2) Abnormal [facility] [id number] 06:51:18* Test Item Value Reference Range Interpretation Comme nts TROPONIN I (test code = 2934900791) 0.008 ng/mL <=0.034 JUAN ALBERTO (test code [...] of biotin. Lab Interpretation (test code = 19351-6) Normal [facility]N-TERMINAL [id number] 06:47:37* Test Item Value Reference Range Interpretation Comme nts NT-proBNP (test code = 2677325491) 37 pg/mL <=125 JUAN ALBERTO (test code = JUAN ALBERTO) Biotin has been reported to cause a negative bias, interpret results relative to patient's use of biotin. Lab Interpretation (test code = 43485-7) Normal [facility]2023-02-19 06:25:52 ALCOHOL<10mg/dL08/10/2022 12:25 AM [facility]<10 Sozxahdm90-546 Toxic>100 Depression of DIRECTOR PRODUCT SAFETY>400 Fatalities ReportedH[facility]COM. METABOLIC PANEL (85888)2022-08-10 06:19:15* Test Item Value Reference Range Interpretation Comme nts NA (test code = 2409432259) 135 mmol/L 135-145 K (test code = 8364682767) 4.3 mmol/L 3.5-5.0 CL (test code = 2658200379) 98 mmol/L 98-108 CO2 TOTAL (test code = 4015755415) 30 mmol/L 23-31 AGAP (test code = 2631278352) 7 2-16 BUN (test code = 2563651418) 11 mg/dL 7-23 GLUCOSE (test code = 9975539999) 153 mg/dL 70-110 H CREATININE (test code = 7294036224) 0.77 mg/dL 0.60-1.25 TOTAL BILI (test code = 1256956655) 0.9 mg/dL 0.1-1.1 CALCIUM (test code = 5599348904) 10.0 mg/dL 8.6-10.6 T PROTEIN (test code = 2661661778) 7.7 g/dL 6.3-8.2 ALBUMIN (test code = 3336758312) 4.6 g/dL 3.5-5.0 ALK PHOS (test code = 7690532475) 92 U/L 34-122 ALTv (test code = 1742-6) 35 U/L 5-50 AST(SGOT) (test code = 8938979192) 42 U/L 13-40 H eGFR (test code = 4612332014) 106.1 mL/min/1.73m2 JUAN ALBERTO (test code = [...] imaging tests). Lab Interpretation (test code = 39754-1) Abnormal [facility]2023-[facility]-19 06:19:15* Test Item Value Reference Range Interpretation Comme nts MAGNESIUM (test code = 3147131622) 2.2 mg/dL 1.7-2.4 Lab Interpretation (test cod e = 53699-5) Normal [facility]2023-02-19 06:18:55* Test Item Value Reference Range Interpretation Comme nts LIPASE (test code = 3666775498) 18 U/L 0-220 Lab Interpretation (test cod e = 40430-2) Normal [facility]CREATINE [id number] 06:18:55* Test Item Value Reference Range Interpretation Comme nts CK (test code = 6182413015) 174 U/L 33-194 Lab Interpretation (test cod e = 72830-2) Normal [facility]CBC WITH [id number] 06:02:35* Test Item Value Reference Range Interpretation [...] 32.4 g/dL 31.2-35.0 RDW-SD (test code = 08205-2) 50.2 fL 38.5-51.6 RDW-CV (test code = 788-0) 14.3 % 12.1-15.4 PLT (test code = 777-3) 241 See_Comment [Automated messa ge] The system which generated this result transmitted reference range: 150 - 328 10*3/?L. The reference range was not used to interpret this result as normal/abnormal. MPV (test code = 80564-7) 8.6 fL 9.8-13.0 L NRBC/100 WBC (test code = 3640074881) 0.0 See_Comment [Automated me ssage] The system which generated this result transmitted reference range: 0.0 - 10.0 /100 WBCs. The reference range was not used to interpret this result as normal/abnormal. NRBC x10^3 (test code = 5500028547) See_Comment [Automated messa ge] The system which generated this result transmitted reference range: 10*3/?L. The reference range was not used to interpret this result as normal/abnormal. GRAN MAT (NEUT) % (test code = 770-8) 63.9 % IMM GRAN % (test code = 6012188603) 0.50 % LYMPH % (test code = 736-9) 17.6 % MONO % (test code = 5905-5) 16.5 % EOS % (test code = 713-8) 0.7 % BASO % (test code = 706-2) 0.8 % GRAN MAT x10^3(ANC) (test code = 7407799182) 4.79 10*3/uL 1.99-6.95 IMM GRAN x10^3 (test code = 3890735024) 0.04 10*3/uL 0.00-0.06 LYMPH x10^3 (test code = 731-0) 1.32 10*3/uL 1.09-3.23 MONO x10^3 (test code = 742-7) 1.24 10*3/uL 0.36-1.02 H EOS x10^3 (test code = 711-2) 0.05 10*3/uL 0.06-0.53 L BASO x10^3 (test code = 704-7) 0.06 10*3/uL 0.01-0.09 Lab Interpretation (test code = 16739-3) Abnormal [facility] [id number] 15:15:32* Test Item Value Reference Range Interpretation Comments TROPONIN I (test code = 6366764883) 0.007 ng/mL See_Comment [Automated message] The system [...] of biotin. Lab Interpretation (test code = 21397-3) Normal [facility] ConroeaPTT2022-10-16 15:08:29* Test Item Value Reference Range Interpretation [...] 30 seconds. Lab Interpretation (test code = 00337-8) Normal [facility]PROTHROMBIN TIME / [id number] 15:06:28* Test Item Value Reference Range Interpretation [...] the indications. Lab Interpretation (test code = 54285-9) Normal [facility]COMP. METABOLIC PANEL (91518)2022-04-06 15:03:31* Test Item Value Reference Range Interpretation Comme [facility] NA (test code = 8608431052) 136 mmol/L 135-145 K (test code = 3434667226) 5.0 mmol/L 3.5-5 CL (test code = 8410073861) 104 mmol/L 98-108 CO2 TOTAL (test code = 3654474590) 21 mmol/L 23-31 L AGAP (test code = 7032496508) 2-16 BUN (test code = 8482726352) 11 mg/dL 7-23 GLUCOSE (test code = 6275576899) 162 mg/dL 70-110 H CREATININE (test code = 6728675260) 0.52 mg/dL 0.6-1.25 L TOTAL BILI (test code = 8687605527) 1.0 mg/dL 0.1-1.1 CALCIUM (test code = 1340767041) 9.3 mg/dL 8.6-10.6 T PROTEIN (test code = 8829328537) 7.4 g/dL 6.3-8.2 ALBUMIN (test code = 6211667262) 4.4 g/dL 3.5-5 ALK PHOS (test code = 3413282856) 134 U/L 34-122 H ALTv (test code = 1742-6) 17 U/L 5-50 AST(SGOT) (test code = 6196336731) 38 U/L 13-40 eGFR (test code = 0564522321) mL/min/1.73m2 JUAN ALBERTO (test code = JUAN [...] imaging tests). Lab Interpretation (test code = 36482-7) Abnormal [facility]LIP[facility], [id number] 15:03:31* Test Item Value Reference Range Interpretation Comme nts LIPASE (test code = 1495559605) 29 U/L 0-220 Lab Interpretation (test cod e = 81016-8) Normal [facility]CBC WITH [id number] 14:51:49* Test Item Value Reference Range Interpretation Comme nts WBC (test code = 6690-2) See_Comment [Automated [employer] ge] The system which generated this result transmitted reference range: 4.20 - 10.70 10*3/?L. The reference range was not used to interpret this result as normal/abnormal. RBC (test code = 789-8) See_Comment [Automated [employer] ge] The system which generated this result [...] 34.0 g/dL 31.2-35 RDW-SD (test code = 58654-5) 45.9 fL 38.5-51.6 RDW-CV (test code = 788-0) 13.3 % 12.1-15.4 PLT (test code = 777-3) See_Comment [Automated [employer] ge] The system which generated this result transmitted reference range: 150 - 328 10*3/?L. The reference range was not used to interpret this result as normal/abnormal. MPV (test code = 75434-4) 8.4 fL 9.8-13 L NRBC/100 WBC (test code = 3146611175) See_Comment [Automated me ssage] The system which generated this result transmitted reference range: 0.0 - 10.0 /100 WBCs. The reference range was not used to interpret this result as normal/abnormal. NRBC x10^3 (test code = 9451227876) See_Comment [Automated messa ge] The system which generated this result transmitted reference range: 10*3/?L. The reference range was not used to interpret this result as normal/abnormal. GRAN MAT (NEUT) % (test code = 770-8) 63.0 % IMM GRAN % (test code = 1048095344) 0.50 % LYMPH % (test code = 736-9) 25.2 % MONO % (test code = 5905-5) 9.8 % EOS % (test code = 713-8) 0.3 % BASO % (test code = 706-2) 1.2 % GRAN MAT x10^3(ANC) (test code = 8702976934) 3.73 10*3/uL 1.99-6.95 IMM GRAN x10^3 (test code = 1298274699) 0.03 10*3/uL 0-0.06 LYMPH x10^3 (test code = 731-0) 1.49 10*3/uL 1.09-3.23 MONO x10^3 (test code = 742-7) 0.58 10*3/uL 0.36-1.02 EOS x10^3 (test code = 711-2) 0.06-0.53 L BASO x10^3 (test code = 704-7) 0.07 10*3/uL 0.01-0.09 Lab Interpretation (test code = 50400-3) [facility] Rfl[facility] Cult/[id number] 13:53:00* Test Item Value Reference Range Interpretation Comme nts Color,Urine (test code = UCOL) Yellow Yellow Clarity,Urine (test code = UCLAR) Cloudy Clear A Ph, Urine (test code = UPH) 7.5 5.0-9.0 N Specific Tie Siding,Urine (test code = USG) 1.025 1.005-1.030 N [...] = ULEU) Negative mg/dL Negative UF REFLEXDrug Screen,[id number] 13:53:00* Test Item Value Reference Range Interpretation [...] UPROP) Negative Negative Complete Blood Count Auto [id number] 12:58:00* Test Item Value Reference Range Interpretation [...] = NRBCP) 0 % Coronavirus PCR, COVID19 [id number] 12:58:00* Test Item Value Reference Range Interpretation Comme nts Coronavirus PCR, COVID19 Rapid (test code = SARSCOV2) Coronavirus PCR, COVID19 Rapid (test code = BHVLGGU29.1) Reference Range: Negative SARS-CoV-2 PCR Result: (test code = SARS-CoV-2 PCR Result:) Negative by RT-PCR COVID-19 Status: AsymptomaticComprehensive Metabolic Rqhff6621-16-50 12:58:00* Test Item Value Reference Range Interpretation [...] = ALP) 144 U/L 46-116 H Ethanol [id number] 12:58:00* Test Item Value Reference Range Interpretation Comme nts Ethanol (test code = ETOH) < 3 mg/dL The pharmacologi yudy response to blood alcohol levels mayvary from individual to individual. The fatal concentrationhas been reported to be >400mg/dL. [id number] 01:47:56* Test Item Value Reference Range Interpretation Comme nts [place] (test code = 7475383981) 0.7 mmol/L 0.6-1.2 JUAN ALBERTO (test code = JUAN ALBERTO) Toxic Range: ? Greater than 1.2 mmol/L Lab Interpretation (test code = 30004-5) [facility] [id number] 00:26:53* Test Item Value Reference Range Interpretation Comments TROPONIN I (test code = 0510901545) 0.002 ng/mL See_Comment [Automated message] The system [...] of biotin. Lab Interpretation (test code = 15792-1) Normal [facility] 00:18:52 ALCOHOL<10mg/dL01/19/2022 7:18 PM [facility]10 Aglpmmmo91-489 Toxic>100 Depression of [employer]OR PRODUCT SAFETY>400 Fatalities ReportedH[facility] ConroeCOMP. METABOLIC PANEL (00995)2022-01-20 00:16:16* Test Item Value Reference Range Interpretation Comme nts NA (test code = 3986981965) 137 mmol/L 135-145 K (test code = 0528948624) 4.5 mmol/L 3.5-5 CL (test code = 2230491702) 103 mmol/L 98-108 CO2 TOTAL (test code = 7568701201) 26 mmol/L 23-31 AGAP (test code = 1140523837) 2-16 BUN (test code = 4239645691) 10 mg/dL 7-23 GLUCOSE (test code = 2386275120) 121 mg/dL 70-110 H CREATININE (test code = 1176610482) 0.65 mg/dL 0.6-1.25 TOTAL BILI (test code = 9971634632) 0.8 mg/dL 0.1-1.1 CALCIUM (test code = 4088629763) 11.4 mg/dL 8.6-10.6 H T PROTEIN (test code = 5753997001) 7.2 g/dL 6.3-8.2 ALBUMIN (test code = 3726197336) 4.6 g/dL 3.5-5 ALK PHOS (test code = 9177865734) 112 U/L 34-122 ALTv (test code = 1742-6) 19 U/L 5-50 AST(SGOT) (test code = 7448201835) 26 U/L 13-40 eGFR (test code = 1962648646) mL/min/1.73m2 JUAN ALBERTO (test code = JUAN [...] imaging tests). Lab Interpretation (test code = 03131-3) Abnormal [facility] WITH [id number] 23:43:54* Test Item Value Reference Range Interpretation Comme nts WBC (test code = 6690-2) See_Comment [Automated [employer]] The system which generated this result transmitted reference range: 4.20 - 10.70 10*3/?L. The reference range was not used to interpret this result as normal/abnormal. RBC (test code = 789-8) See_Comment [Automated [employer]] The system which generated this result [...] 34.4 g/dL 31.2-35 RDW-SD (test code = 63742-1) 44.0 fL 38.5-51.6 RDW-CV (test code = 788-0) 12.6 % 12.1-15.4 PLT (test code = 777-3) See_Comment [Automated [employer]] The system which generated this result transmitted reference range: 150 - 328 10*3/?L. The reference range was not used to interpret this result as normal/abnormal. MPV (test code = 65363-9) 9.1 fL 9.8-13 L NRBC/100 WBC (test code = 9311131909) See_Comment [Automated [employer] ssage] The system which generated this result transmitted reference range: 0.0 - 10.0 /100 WBCs. The reference range was not used to interpret this result as normal/abnormal. NRBC x10^3 (test code = 2567498299) See_Comment [Automated [employer]] The system which generated this result transmitted reference range: 10*3/?L. The reference range was not used to interpret this result as normal/abnormal. GRAN MAT (NEUT) % (test code = 770-8) 69.8 % IMM GRAN % (test code = 8777737884) 0.40 % LYMPH % (test code = 736-9) 18.0 % MONO % (test code = 5905-5) 10.9 % EOS % (test code = 713-8) 0.1 % BASO % (test code = 706-2) 0.8 % GRAN MAT x10^3(ANC) (test code = 2906355757) 5.58 10*3/uL 1.99-6.95 IMM GRAN x10^3 (test code = 4916918150) 0.03 10*3/uL 0-0.06 LYMPH x10^3 (test code = 731-0) 1.44 10*3/uL 1.09-3.23 MONO x10^3 (test code = 742-7) 0.87 10*3/uL 0.36-1.02 EOS x10^3 (test code = 711-2) 0.06-0.53 L BASO x10^3 (test code = 704-7) 0.06 10*3/uL 0.01-0.09 Lab Interpretation (test code = 33658-6) Abnormal [facility] GLUCOSE (AUTOMATED)2022-01-19 22:27:41* Test Item Value Reference Range Interpretation Comme nts POCT GLU (test code = 6199076241) 123 mg/dL 70-110 H Lab Interpretation (test cod e = 14594-7) Abnormal [facility] GLUCOSE (AUTOMATED)2021-12-30 22:08:16* Test Item Value Reference Range Interpretation Comme nts POCT GLU (test code = 1863728846) 167 mg/dL 70-110 H Lab Interpretation (test cod e = 29242-6) Abnormal [facility] GLUCOSE (AUTOMATED)2021-12-30 16:50:40* Test Item Value Reference Range Interpretation Comme nts POCT GLU (test code = 8885042781) 154 mg/dL 70-110 H Lab Interpretation (test cod e = 44551-3) Abnormal [facility] GLUCOSE (AUTOMATED)2021-12-30 12:38:43* Test Item Value Reference Range Interpretation Comme nts POCT GLU (test code = 6806548231) 164 mg/dL 70-110 H Lab Interpretation (test cod e = 12288-3) Abnormal [facility] GLUCOSE (AUTOMATED)2021-12-30 02:14:58* Test Item Value Reference Range Interpretation Comme nts POCT GLU (test code = 3772569015) 220 mg/dL 70-110 H Lab Interpretation (test cod e = 43422-9) Abnormal [facility] GLUCOSE (AUTOMATED)2021-12-29 21:50:02* Test Item Value Reference Range Interpretation Comme nts POCT GLU (test code = 1838722007) 191 mg/dL 70-110 H Lab Interpretation (test cod e = 61334-5) Abnormal [facility] GLUCOSE (AUTOMATED)2021-12-29 20:15:01* Test Item Value Reference Range Interpretation Comme nts POCT GLU (test code = 3223799037) 163 mg/dL 70-110 H Lab Interpretation (test cod e = 38067-9) Abnormal [facility]an[facility]hor[facility] (TTE)2021-12-29 19:12:22* Test Item Value Reference Range Interpretation Comme nts Height (test code = 9934188240) in Weight (test code = 6549375695) lbs Systolic BP (test code = 2875854129) mmHg Diastolic BP (test code = 7578075122) mmHg Heart Rate (test code = 8418459044) bpm BSA (test code = 9306585947) 1.62 m2 Ao root annulus (test code = 1983025510) 2.45 cm Ao root diam (test code = 2141246342) 2.45 cm Aortic root (test code = 1153145682) 2.45 cm ACS (test code = 5027692139) 1.66 cm LA size (test code = 6775985703) 3.2 cm LVOT diameter (test code = 8299372796) 1.95 cm LVIDD (test code = 2007469169) 3.60 cm IVS (test code = 1951129347) 0.94 cm Interventricular Septum Diastolic Thickness by 2D (test code = 8946512) 0.94 cm LVPWD (test code = 3899512111) 0.80 cm PW (test code = 2234441575) 0.80 cm 0.6-1.1 EF(Teich) (test code = 0470350977) 52.80 % LVIDS (test code = 7111519970) 2.60 cm FS (test code = 7941087694) 27 % EF - 2D (test code = 28738130) 52.80 % LAV(MOD-sp4) (test code = 7191718824) 16.80 mL MV Peak E Jovany (test code = 7200359558) 46.1 cm/s E wave decelartion time (test code = 8323536677) 0.31 s MV Peak A Jovany (test code = 1213644832) 58.1 cm/s E/A ratio (test code = 4886969304) ratio MV E/e' septal (test code = 8798764195) 5.7 cm/s Tapse (test code = 7875080292) 1.60 cm LVOT stroke volume (test code = 6954684699) 52.10 cm3 LVOT peak jovany (test code = 3074791818) 110.6 cm/s LVOT mn grad (test code = 3309979123) mmHg AV LVOT peak gradient (test code = 2782629836) mmHg LVOT peak VTI (test code = 9559722379) 17.4 cm LV V1 mean (test code = 7606177881) 66.10 cm/s Aortic valve mean velocity (test code = 5130391506) 73.0 cm/s Ao peak jovany (test code = 2465699627) 124.6 cm/s Ao VTI (test code = 4616040068) 18.6 cm AV area by cont VTI (test code = 4744420249) 2.8 cm2 AV area peak jovany (test code = 1102576633) 2.7 cm2 Ao max PG (test code = 4824518069) 6.20 mm[Hg] AV peak gradient (test code = 2185279112) mmHg AV valve area (test code = 6542462430) 2.80 cm2 AV mean gradient (test code = 3079451791) mmHg Radiology Study observation (narrative) (test code = 90297-5) JUAN ALBERTO (test code = JUAN ALBERTO) [...] ultrasound enhancing agent used. [facility]2021-12-29 12:50:31* Test Item Value Reference Range Interpretation Comme nts POCT GLU (test code = 1253729956) 141 mg/dL 70-110 H Lab Interpretation (test cod e = 04742-2) Abnormal [facility]roeTroponin [id number] 10:38:31* Test Item Value Reference Range Interpretation Comments TROPONIN I (test code = 6162486963) 0.003 ng/mL See_Comment [Automated message] The system [...] of biotin. Lab Interpretation (test code = 69390-8) Normal [facility] ConroeLIPID PANEL (32724)(TOTAL CHOLESTEROL, TRIGLYCERIDES, HDL)2021-12-29 05:56:47* Test Item Value Reference Range Interpretation Comme nts CHOL (test code = 9314254898) 168 mg/dL 120-200 HDL (test code = 6195176118) 102 mg/dL See_Comment [[employer]] The system which generated this result transmitted reference range: >=40. The reference range was not used to interpret this result as normal/abnormal. HDLC RATIO (test code = 2376914407) See_Comment [Automated Triage] The system which generated this result transmitted reference range: <=5.0. The reference range was not used to interpret this result as normal/abnormal. TRIG (test code = 0839761587) 55 mg/dL 30-170 LDL CHOL (test code = 36924-3) 55 mg/dL See_Comment [[employer]] The system which generated this result transmitted reference range: <=160. The reference range was not used to interpret this result as normal/abnormal. VLDL (test code = 7281782447) 11 mg/dL 5-60 Lab Interpretation (test code = 06322-0) Normal [facility]roeThyroid Stimulating Hormone (TSH)2021-12-29 05:40:29* Test Item Value Reference Range Interpretation Comme nts TSH (test code = 5893680318) See_Comment Biotin has been reported to cause a negative bias, interpret results relative to patient's use of biotin. [Automated message] The system which generated this result transmitted reference range: 0.45 - 4.70 mIU/L. The reference range was not used to interpret this result as normal/abnormal. Lab Interpretation (test code = 61772-1) Normal [facility] [id number] 05:34:29* Test Item Value Reference Range Interpretation Comments TROPONIN I (test code = 7608204863) 0.006 ng/mL See_Comment [Automated message] The system [...] of biotin. Lab Interpretation (test code = 53334-1) Normal [facility]OL2022-07-10 04:43:01 ALCOHOL<10mg/dL12/28/2021 11:43 PM [facility] Greater than or equal to 80 mg/dL. NOTE: Whole blood values are approximately 10% to 15% lower than serum and plasma.[facility] Glycosylated Hemoglobin (A1C)2021-12-29 01:51:44* Test Item Value Reference Range Interpretation Comme nts HGB A1C (test code = 4548-4) 6.5 % 4-5.7 H JUAN ALBERTO (test code = JUAN ALBERTO) Reference RangesNormal: <5.7%Prediabetes: 5.7 - 6.4%Diabetes: > 6.5% Lab Interpretation (test code = 33094-3) [facility] [id number] 21:26:50* Test Item Value Reference Range Interpretation Comments TROPONIN I (test code = 9408512364) 0.002 ng/mL See_Comment [Automated message] The system [...] of biotin. Lab Interpretation (test code = 67757-9) Normal [facility]roeN-TERMINAL [id number] 21:23:29* Test Item Value Reference Range Interpretation Comme nts NT-proBNP (test code = 4729815981) 41 pg/mL See_Comment [Automated message] The system which generated this result transmitted reference range: <=125. The reference range was not used to interpret this result as normal/abnormal. JUAN ALBERTO (test code = JUAN ALBERTO) Biotin has been reported to cause a negative bias, interpret results relative to patient's use of biotin. Lab Interpretation (test code = 38571-6) Normal [facility]roeAMMONIA, [id number] 21:20:38* Test Item Value Reference Range Interpretation Comme nts AMMONIA (test code = 9051408597) 9-33 L Slight hemolysis Lab Interpretation (test code = 14190-4) Abnormal [facility]COMP. METABOLIC PANEL (21639)2021-12-28 21:08:48* Test Item Value Reference Range Interpretation Comme nts NA (test code = 1608726852) 137 mmol/L 135-145 K (test code = 2597003224) 4.5 mmol/L 3.5-5 CL (test code = 8713424946) 97 mmol/L 98-108 L CO2 TOTAL (test code = 8021938928) 29 mmol/L 23-31 AGAP (test code = 3809862027) 2-16 BUN (test code = 0470691823) 10 mg/dL 7-23 GLUCOSE (test code = 7116536582) 188 mg/dL 70-110 H CREATININE (test code = 0539657809) 0.58 mg/dL 0.6-1.25 L TOTAL BILI (test code = 6086846783) 0.8 mg/dL 0.1-1.1 CALCIUM (test code = 0968995271) 10.5 mg/dL 8.6-10.6 T PROTEIN (test code = 5162318284) 7.6 g/dL 6.3-8.2 ALBUMIN (test code = 8435674015) 4.5 g/dL 3.5-5 ALK PHOS (test code = 8956037375) 107 U/L 34-122 ALTv (test code = 1742-6) 66 U/L 5-50 H AST(SGOT) (test code = 9067423587) 96 U/L 13-40 H eGFR (test code = 6575072230) mL/min/1.73m2 JUAN ALBERTO (test code = JUAN [...] imaging tests). Lab Interpretation (test code = 30216-2) Abnormal [facility]roePROTHROMBIN TIME / [id number] 21:01:25* Test Item Value Reference Range Interpretation Comme nts PROTIME PATIENT (test code = 5964-2) See_Comment [Automated [employer]] The system which generated this result transmitted reference range: 12.0 - 14.7 Seconds. The reference range was not used to interpret this result as normal/abnormal. INR (test code = 6301-6) Normal INR <1.1; Warfarin Therapeutic range 2.0 to 3.0 or 2.5 to 3.5, depending upon the indications. Lab Interpretation (test code = 78174-3) Normal [facility]roeCBC WITH [id number] 20:54:03* Test Item Value Reference Range Interpretation Comme nts WBC (test code = 6690-2) See_Comment [Automated [employer]] The system which generated this result transmitted reference range: 4.20 - 10.70 10*3/?L. The reference range was not used to interpret this result as normal/abnormal. RBC (test code = 789-8) See_Comment [Automated [employer]] The system which generated this result [...] 34.2 g/dL 31.2-35 RDW-SD (test code = 02419-0) 47.8 fL 38.5-51.6 RDW-CV (test code = 788-0) 13.3 % 12.1-15.4 PLT (test code = 777-3) See_Comment [Automated [employer]] The system which generated this result transmitted reference range: 150 - 328 10*3/?L. The reference range was not used to interpret this result as normal/abnormal. MPV (test code = 95387-2) 8.6 fL 9.8-13 L NRBC/100 WBC (test code = 1871908759) See_Comment [Automated me ssage] The system which generated this result transmitted reference range: 0.0 - 10.0 /100 WBCs. The reference range was not used to interpret this result as normal/abnormal. NRBC x10^3 (test code = 6567238469) See_Comment [Automated messa ge] The system which generated this result transmitted reference range: 10*3/?L. The reference range was not used to interpret this result as normal/abnormal. GRAN MAT (NEUT) % (test code = 770-8) 64.1 % IMM GRAN % (test code = 7586797214) 0.40 % LYMPH % (test code = 736-9) 16.6 % MONO % (test code = 5905-5) 17.2 % EOS % (test code = 713-8) 0.2 % BASO % (test code = 706-2) 1.5 % GRAN MAT x10^3(ANC) (test code = 0662931508) 3.47 10*3/uL 1.99-6.95 IMM GRAN x10^3 (test code = 9410248404) 0-0.06 LYMPH x10^3 (test code = 731-0) 0.90 10*3/uL 1.09-3.23 L MONO x10^3 (test code = 742-7) 0.93 10*3/uL 0.36-1.02 EOS x10^3 (test code = 711-2) 0.06-0.53 L BASO x10^3 (test code = 704-7) 0.08 10*3/uL 0.01-0.09 Lab Interpretation (test code = 63556-1) Abnormal [facility] ConroeEthanol [id number] 21:08:00* Test Item Value Reference Range Interpretation Comme nts Ethanol (test code = ETOH) < 3 mg/dL The pharmacologi yudy response to blood alcohol levels mayvary from individual to individual. The fatal concentrationhas been reported to be >400mg/dL. Complete Blood Count Auto [id number] 17:33:00* Test Item Value Reference Range Interpretation [...] = NRBCP) 0 % UA, Urinalysis Rflx Cult/[id number] 17:33:00* Test Item Value Reference Range Interpretation Comme nts Color,Urine (test code = UCOL) Dark Yellow Yellow A Clarity,Urine (test code = UCLAR) Clear Clear Ph, Urine (test code = UPH) 6.5 5.0-9.0 N Specific Tie [place],Urine (test code = USG) 1.015 1.005-1.030 N [...] = ULEU) Trace mg/dL Negative A Urine [id number] 17:33:00* Test Item Value Reference Range Interpretation Comme nts RBC,Urine (test code = URBCUF) None Seen /HPF 0-2 WBC,Urine (test code = UWBCUF) 0-5 /HPF 0-5 Epithelial Cell,Urine (test code = UECUF) 0-5 /HPF 0-5 Casts,Urine (test code = UCASTUF) None Seen /LPF None Seen Bacteria,Urine (test code = UBACTUF) None Seen /hpf None Seen Drug Screen,[id number] 17:33:00* Test Item Value Reference Range Interpretation [...] code = UPROP) Negative Negative Comprehensive Metabolic Botnv9081-10-67 17:33:00* Test Item Value Reference Range Interpretation [...] 101 U/L 46-116 N Sars-CoV-2/FLU A/B RSV [id number] 17:31:00* Test Item Value Reference Range Interpretation [...] SARS-CoV-2 PCR Result:) Negative by RT-PCR Drug Screen,Mjrdk2228-59-09 17:20:00* Test Item Value Reference Range Interpretation [...] UPROP) Negative Negative Complete Blood Count Auto [id number] 17:14:00* Test Item Value Reference Range Interpretation [...] code = NRBCP) 0 % Comprehensive Metabolic [id number] 17:14:00* Test Item Value Reference Range Interpretation [...] = ALP) 207 U/L 46-116 H Ethanol Brptf0349-20-31 17:14:00* Test Item Value Reference Range Interpretation Comme nts Ethanol (test code = ETOH) 192 mg/dL Complete Blood Count Auto [id number] 20:20:00* Test Item Value Reference Range Interpretation [...] code = NRBCP) 0 % Comprehensive Metabolic Ttpnw5724-44-71 20:20:00* Test Item Value Reference Range Interpretation [...] = ALP) 189 U/L 46-116 H Ethanol Ondnz1206-20-06 20:20:00* Test Item Value Reference Range Interpretation Comme nts Ethanol (test code = ETOH) 10 mg/dL Sars-CoV-2/FLU A/B RSV [id number] 20:20:00* Test Item Value Reference Range Interpretation [...] Negative by Nucleic Acid Amplification UA, Urinalysis Xotrcihdepp9667-98-40 20:20:00* Test Item Value Reference Range Interpretation Comme nts Color,Urine (test code = UCOL) Yellow Y Clarity,Urine (test code = UCLAR) Clear Clear PH,Urine (test code = UPH.XX) 7.0 5.5-8.5 Specific Tie S[place],Urine (test code = USG) 1.020 1.005-1.030 N [...] code = ULEU) Negative cells/uL Negative Drug Screen,Ktkqj4059-86-10 20:20:00* Test Item Value Reference Range Interpretation [...] RESULT TO FO LLOW CT head/brain wo [facility] [address] [place] [address] Patient Name: Walt Velazquez Medical Record#: [id number] Address: Homeless City/State/Zip: [place] [address]: Vinnie Navarro MD Insurance: Self Pay /Age/Sex: 1970/50/M Admit/Reg Date: 09/17/[address]: Vinnie Navarro MD Location: [facility]/ PCP: PcpMd KERWIN Jimenez Date of Service: 09/17/21 Order (s): CT head/brain wo con CPT Code: 56140 Report Number: [id number] Reason for Exam: Altered mental status Location [...] steady gait, in no apparent distress, T [facility] [employer] 2023-12-12 22:20:05 Pt removed all monitoring equipment T [facility] [employer] 2023-12-12 20:33:23 Pt brought in by [place] [facility] for medical clearance. [facility] check pt out on scene but after pt complained of chest pain. [place] [facility] brought pt in for clearance for county. Zeina Albrecht RN [facility] 2023-11-05 16:26:20 Pt discharged with diagnosis of CP. Printed and verbal instructions reviewed with and given to pt. Prescriptions given x 0. Pt verbalized understanding of teaching and recommended follow-up. Denies questions or concerns at this time. Pt ambulatory to holding room to await transportation at discharge. Appears in no apparent distress. No ataxia noted. [facility]. Renae Saldivar RN [facility] 2023-11-05 14:56:10 Walt Festus Velazquez Sr. is a 52 year old male arrive via [facility] c/o " throbbing ball in chest" since 0600 has been constant, pt immediately asks for food, Emani Gomez RN [facility]
== END 2024-02-08 14:10 | disposition home or self-care (01) ==
LOC: ER 13:07
DX: M25.561 Pain in right knee (principal); M79.632 Pain in left forearm; M79.631 Pain in right forearm; W18.30XA Fall on same level, unspecified, initial encounter
CPT/HCPCS: 99283

== ENCOUNTER 2024-02-09 13:50 | Emergency (ER) | payer SELFPAY ==
[2024-02-09] MEDS ORDERED: NA CHLORIDE 0.9% 1,000 ML ONE (14:52)
[2024-02-09] MEDS ORDERED: DIAZEPAM 2 MG TABLET ONE (14:52)
--- OUTSIDE RECORDS SUMMARY | 2024-02-09 14:53 | XMS REPORT | Continuity of Care Document ---
Author Name Unknown Address [address] [facility] [address] [place] [address] [facility] Address [address] [facility] [address] [place] [address] Care Team Providers Care Shank Paperer Name Role Phone Pcp-None Primary Care Physician Unavailab Rafael Thomas MD Attending Clinician [phone] Sulaiman Hawkins DO Attending Clinician [phone] HEMANT KLEIN Attending Clinician Unavailable Hemant Klein MD Attending Clinician [phone] [place] Attending Clinician Unavailab JESSICA Gallardo Attending Clinician Unavailable Rayray Driscoll MD Attending Clinician +[phone] Jessica Prado MD Attending Clinician +[phone] Oswald Murphy MD Attending Clinician [phone] DIYA CHOWDHURY Attending Clinician Unavailab Diya Mackey DO Attending Clinician [phone] Fidel Cuellar Attending Clinician Unavailable DIRK YARBROUGH Attending Clinician Unavailable Leticia Rowland Attending Clinician [phone] Dirk Yarbrough MD Attending Clinician [phone] Faye Portillo LVN Attending Clinician [phone] Pia Reddy Attending Clinician [phone] Vinnie Navarro Attending Clinician Unavailable OSWALD MURPHY Admitting Clinician Unavailable Oswald Murphy MD Admitting Clinician [phone] DIYA CHOWDHURY Admitting Clinician UnavailLeticia Gaytan Admitting Clinician Unavailable JESSICA PRADO Admitting Clinician Unavailable Jessica Prado MD Admitting Clinician [phone] Payers Payer Name Policy Type Policy Number Effective Date Expirati on Date Source Problems Condition Name Condition Details Condition Category Status Onset Date Resolution Date Last Treatment Date Treating Clinician Comments Source Alcohol withdrawal syndrome with complicati on Alcohol withdrawal syndrome with complicati on Disease Active 2-19 00:00: 00 [facility] Type 2 diabetes mellitus with other specified complicati on Type 2 diabetes mellitus with other specified complicati on Disease Active - 00:00: 00 [facility] Dyslipidem ia Dyslipidem ia Disease Active 12-29 00:00: 00 [facility] Chest pain, unspecifie d type Chest pain, unspecifie d type Disease Active 7- 00:00: 00 [facility] Priapism Priapism Disease Active 2013-06- 00:00: 00 [facility] Allergies, Adverse Reactions, Alerts Allergy Name Allergy Type Status Severity Reaction(s) Onset Date Inactive Date Treating Clinician Comments Source No Known Drug Allergie s DA Active U 4-25 00:00: 00 [facility] No Known Drug Allergie s DA Active U 0 9-16 00:00: 00 [facility] No Known Drug Allergie s DA Active U 3-29 00:00: 00 [facility] No Known Drug Allergie s DA Active U 2019-06 2-16 00:00: 00 [facility] No Known Drug Allergie s DA Active U 2019-06 2-15 00:00: 00 [facility] No Known Drug Allergie s DA Active U 2019-06 00:00: 00 [facility] Trazodon e Propensi ty to adverse reaction s Active Other - See comments 10-06 00:00: 00 [facility] TRAZODON E DRUG INGREDI Active Other-Cmnt 10-06 00:00: 00 [facility] Social History Social Habit Start Date Stop Date Quantity Comments Source History of tobacco use Cigarette Smoker [facility] Alcoholic beverage intake 2023-11-07 00:00:00 2023-11-07 00:00:00 Current drinker of alcohol (finding) [facility] History of Social function 2023-11-07 00:00:00 2023-11-07 00:00:00 [facility] Exposure to SARS-CoV-2 (event) 2022-11-01 00:00:00 2022-11-11 13:57:00 Not sure [facility] Tobacco use and exposure 2022-08-10 00:00:00 2022-08-10 00:00:00 User of smokeless tobacco [facility] Alcohol intake 2022-08-10 00:00:00 2022-08-10 00:00:00 Current drinker of alcohol (finding) [facility] Tobacco Comment 2022-08-10 00:00:00 2022-08-10 00:00:00 1/2 a pack a day [facility] Sex assigned at 1970 00:00:00 1970 00:00:00 [facility] Smoking Status Start Date Stop Date Source Smokes tobacco daily 2022-08-10 00:00:00 [facility] Medications Ordered Medication Name Filled Medication Name Start Date Stop Date Current Medication? Ordering Clinician Indication Dosage Frequency Signature (SIG) Comments Components Source NaCl 0.9% (NS) bolus infusion 1,000 mL 11-11 19:45: 00 11-11 20:23 :00 No 1000mL at 999 mL/hr, 1,000 mL, IV Piggyback, ONCE, 1 dose, On Thu11/11/22 at 1445, STAT [facility] multivitami n tablet 1 tablet 08-12 15:00: 00 Yes 1{tbl} 1 tablet, Oral, DAILY, First dose on Thu08/12/22 at 0900, Until Discontinu ed, Routine [facility] foLIC acid (FOLATE) tablet 1 mg 08-12 15:00: 00 Yes 1mg 1 mg, Oral, DAILY, First dose on Thu08/12/22 at 0900, Until Discontinu ed, Routine [facility] foLIC acid 1 mg tablet 08-12 00:00: 00 09-12 04:59 :00 No [id number] 1mg Take 1 tablet by mouth in the morning for 30 days. [facility] oxazepam (SERAX) capsule 15 mg [...] Thu08/13/22 at 0600, Routine [Order 2 End] [facility] thiamine (VITAMIN B1) tablet 100 mg 08-11 16:15: 00 Yes 100mg 100 mg, Oral, DAILY, First dose on Thu08/11/22 at 1015, Until Discontinu ed, Routine [facility] enoxaparin (LOVENOX) injection 40 mg 08-10 23:00: 00 Yes 40mg 40 mg, Subcutaneo us, DAILY, First dose on Thu08/10/22 at 1700, Until Discontinu ed, Routine [facility] NaCl 0.9% (NS) IV infusion 1,000 mL 08-10 15:00: 00 Yes 1000mL at 125 mL/hr, IV Infusion, CONTINUOUS , Starting on Thu08/10/22 at 0900, Until Discontinu ed, Routine [facility] foLIC acid (FOLATE) 5 mg in NaCl 0.9% (NS) piggyback 08-10 15:00: 00 08-11 16:14 :47 No 5mg IV Piggyback, DAILY, First dose on Thu08/10/22 at 0900, Until Discontinu ed, 50 mL Univers [facility] thiamine (VITAMIN B1) 100 mg in NaCl 0.9% (NS) piggyback 08-10 15:00: 00 08-10 16:08 :00 No 100mg IV Piggyback, DAILY, 1 dose, First dose on Thu08/10/22 at 0900, 50 mL [facility] LORazepam (ATIVAN) injection 2 mg 08-10 14:52: 57 Yes 2mg 2 mg, Slow IV Push, Q4HPRN, Starting on Thu08/10/22 at 0852, Until Discontinu ed, Routine, Seizures, Agitation, Anxiety [facility] Sliding Scale Insulin-Reg ular + Fsbg Testing 08-10 13:30: 00 Yes Subcutaneo us, AC+HS, First dose on Thu08/10/22 at 0730, Until Discontinu ed, Routine [facility] oxazepam (SERAX) capsule 15 mg 08-10 12:08: 05 Yes 15mg 15 mg, Oral, Q4HPRN, Starting on Thu08/10/22 at 0608, Until Discontinu ed, Routine, Only while awake for DBP equal to or greater than 100, HR equal to or greater than 100. [facility] dextrose 10% (D10W) bolus infusion 250 mL [...] blood glucose is < 80 mg/dL, repeat.
[facility] glucagon (GLUCAGEN DIAGNOSTIC KIT) injection 1 mg 08-10 12:03: 20 Yes 1mg 1 mg, Intramuscu lar, PRN, Starting on Thu08/10/22 at 0603, Until Discontinu ed, JACIEL, Blood Glucose < or = 70 mg/dL and patient is NPO, unable to swallow or has mental changes. [facility] ondansetron (ZOFRAN (PF)) injection 4 mg 08-10 12:02: 53 Yes 4mg 4 mg, Slow IV Push, Q6HPRN, Starting on Thu08/10/22 at 0602, Until Discontinu ed, Routine, Nausea and Vomiting (N/V) [facility] ibuprofen (MOTRIN IB) tablet 200 mg 08-10 12:02: 45 Yes 200mg 200 mg, Oral, Q6HPRN, Starting on Thu08/10/22 at 0602, Until Discontinu ed, Routine, Pain (scale 1-3) [facility] NaCl 0.9% (NS) bolus infusion 1,000 mL 08-10 10:15: 00 08-10 13:00 :00 No 1000mL at 999 mL/hr, 1,000 mL, IV Infusion, ONCE, 1 dose, On Thu08/10/22 at 0415, STAT [facility] LORazepam (ATIVAN) injection 0.5 mg 08-10 09:15: 00 08-10 09:19 :00 No .5mg 0.5 mg, Slow IV Push, ONCE, 1 dose, On Thu08/10/22 at 0315, STAT [facility] LORazepam (ATIVAN) injection 1 mg 08-10 08:00: 00 08-10 07:05 :00 No 1mg 1 mg, Slow IV Push, ONCE NOW, 1 dose, On 08/10/22 at 0200, STAT [facility] thiamine (VITAMIN B1) injection 100 mg 08-10 06:45: 00 08-10 06:52 :00 No 100mg 100 mg, Intravenou s, ONCE, 1 dose, [facility] 08[facility]10/22 [facility] 0045[facility] 1 mg 08-10 05:15: 00 08-10 05:22 :00 No 1mg 1 mg, Slow IV Push, ONCE, 1 dose, On 08/09/22 at 2315, STAT [facility] ketorolac (TORADOL) injection 15 mg 2021-06 0-16 16:00: 00 04-06 14:50 :00 No 15mg 15 mg, Slow IV Push, ONCE, 1 dose, On 04/06/22 at 1100, [facility] ondansetron (ZOFRAN (PF)) injection 4 mg 2021-06 0-16 15:45: 00 04-06 14:50 :00 No 4mg 4 mg, Slow IV Push, ONCE, 1 dose, On 04/06/22 at 1045, [facility] oxazepam (SERAX) capsule 15 mg 12-31 06:28: 17 01-01 06:29 :00 No 15mg 15 mg, Oral, Q12H TAPER, 2 doses, First dose on Thu12/31/21 at 0130, Last dose on Thu12/31/21 at 1330, Routine [facility] multivitami n tablet 12-31 00:00: 00 Yes [id number] 1{tbl} Take 1 tablet by mouth in the morning. [facility] thiamine 100 mg tablet 12-31 00:00: 00 Yes [id number] 100mg Take 1 tablet by mouth in the morning. [facility] aspirin 81 mg chewable tablet 12-31 00:00: 00 Yes [id number] 81mg Take 1 tablet by mouth in the morning. [facility] foLIC acid 1 mg tablet 12-31 00:00: 00 01-31 04:59 :00 No [id number] 1mg Take 1 tablet by mouth in the morning for 30 days. [facility] metFORMIN 500 mg tablet 12-30 00:00: 00 Yes [id number] 500mg Take 1 tablet by mouth in the morning and 1 tablet in the evening. Take with meals. [facility] aspirin chewable tablet 81 mg 12-29 14:00: 00 Yes 81mg 81 mg, Oral, DAILY, First dose on Thu12/29/21 at 0900, Until Discontinu ed, Routine [facility] sulfur hexafluorid e microsphr (LUMASON) injection 5 mL 12-29 13:45: 00 12-29 13:45 :00 No [id number] 5mL 5 mL, Intravenou s, ONCE, 1 dose, On 12/29/21 at 0845, Routine
tribal council member approving Restricted medication : STEFANIE GORMAN [facility] enoxaparin (LOVENOX) injection 40 mg 12-29 13:00: 00 Yes 40mg 40 mg, Subcutaneo us, Q24H, First dose on Thu12/29/21 at 0800, Until Discontinu ed, Routine [facility] Sliding Scale Insulin - Lispro (HumaLOG) + Fsbg Testing 12-29 13:00: 00 Yes Subcutaneo us, TID MEALS+HS, First dose on Thu12/29/21 at 0800, Until Discontinu ed, Routine [facility] diazePAM (VALIUM) injection 10 mg 12-29 05:30: 00 12-29 04:40 :00 No 10mg 10 mg, Intravenou s, ONCE, 1 dose, On Thu12/29/21 at 0030, Routine [facility] diazePAM (VALIUM) injection 10 mg 12-29 04:15: 00 12-29 03:17 :00 No 10mg 10 mg, Intravenou s, ONCE, 1 dose, On 12/28/21 at 2315, Routine [facility] diazePAM (VALIUM) injection 5 mg 12-29 03:45: 01 Yes 5mg 5 mg, Intravenou s, QIDPRN, Starting on 12/28/21 at 2245, Until Discontinu ed, Routine, Seizures, Agitation [facility] foLIC acid (FOLATE) tablet 1 mg 12-29 03:45: 00 Yes 1mg 1 mg, Oral, DAILY, First dose on 12/28/21 at 2245, Until Discontinu ed, Routine [facility] thiamine (VITAMIN B1) tablet 100 mg 12-29 03:45: 00 Yes 100mg 100 mg, Oral, DAILY, First dose (after last modificati on) on 12/28/21 at 2245, Until Discontinu ed, Routine [facility] glucagon (GLUCAGEN DIAGNOSTIC KIT) injection 1 mg 12-29 03:42: 19 Yes 1mg 1 mg, Intramuscu lar, PRN, Starting on 12/28/21 at 2242, Until Discontinu ed, JACIEL, Blood Glucose < or = 70 mg/dL and patient is unable to swallow or has mental changes. [facility] dextrose 10% (D10W) bolus infusion [...] blood glucose is < 80 mg/dL, repeat.
[facility] LORazepam (ATIVAN) injection 1 mg 12-29 03:30: 00 12-29 02:32 :00 No 1mg 1 mg, Intravenou s, ONCE, 1 dose, On 12/28/21 at 2230, Routine
Is the medication being used for status epilepticu s? No [facility] oxazepam (SERAX) capsule 15 mg 12-29 00:28: 20 Yes 15mg 15 mg, Oral, Q4HPRN, Starting on 12/28/21 at 1928, Until Discontinu ed, Routine, Only while awake for DBP equal to or greater than 100, HR equal to or greater than 100. [facility] ondansetron (ZOFRAN (PF)) injection 4 mg 12-29 00:23: 47 Yes 4mg 4 mg, Slow IV Push, Q6HPRN, Starting on 12/28/21 at 1923, Until Discontinu ed, Routine, Nausea and Vomiting (N/V) [facility] acetaminoph en (TYLENOL) tablet 650 mg 12-29 00:23: 37 Yes 650mg 650 mg, Oral, Q6HPRN, Starting on 12/28/21 at 1923, Until Discontinu ed, Routine, Pain (scale 1-3), Temp > 38.5 C [facility] chlordiazeP OXIDE (LIBRIUM) capsule 25 mg 12-28 23:15: 00 12-28 23:24 :00 No 25mg 25 mg, Oral, ONCE, 1 dose, On 12/28/21 at 1815, [facility] NaCl 0.9% (NS) bolus infusion 2,000 mL 12-28 22:45: 00 12-28 23:18 :00 No 2000mL at 999 mL/hr, 2,000 mL, IV Infusion, ONCE, 1 dose, On 12/28/21 at 1745, JACIEL [facility] LORazepam (ATIVAN) injection 1 mg 12-28 20:45: 00 12-28 20:49 :00 No 1mg 1 mg, Slow IV Push, ONCE, 1 dose, On 12/28/21 at 1545, STAT
Is the medication being used for status epilepticu s? No [facility] acetaminoph en (TYLENOL) 500 mg tablet 10-06 00:00: 00 Yes 500mg Take 1 Tab by mouth every 6 (six) hours as needed for Pain. [facility] Vital Signs Vital Name Observation Time Observation Value Comments S ource Systolic blood pressure 2023-12-13 05:16:00 125 mm[Hg] [facility] Diastolic blood pressure 2023-12-13 05:16:00 90 mm[Hg] [facility] Heart rate 2023-12-13 05:16:00 77 /min [facility] Body temperature 2023-12-13 05:16:00 36.06 Theresa [facility] Respiratory rate 2023-12-13 05:16:00 16 /min [facility] Oxygen saturation in Arterial blood by Pulse oximetry 2023-12-13 05:16:00 98 /min [facility] Body height 2023-12-13 01:35:00 157.5 cm [facility] Body weight 2023-12-13 01:35:00 65.772 kg [facility] BMI 2023-12-13 01:35:00 26.52 kg/m2 [facility] Systolic blood pressure 2023-11-05 21:00:00 106 mm[Hg] [facility] Diastolic blood pressure 2023-11-05 21:00:00 70 mm[Hg] [facility] hospital Heart rate 2023-11-05 21:00:00 74 /min [facility] Body temperature 2023-11-05 21:00:00 36.5 Theresa [facility] Respiratory rate 2023-11-05 21:00:00 21 /min [facility] Oxygen saturation in Arterial blood by Pulse oximetry 2023-11-05 21:00:00 98 /min [facility] Body height 2023-11-05 19:59:00 160 cm [facility] Body weight 2023-11-05 19:59:00 63.504 kg [facility] BMI 2023-11-05 19:59:00 24.80 kg/m2 [facility] Systolic blood pressure 2022-11-11 20:31:31 116 mm[Hg] [facility] hospital Diastolic blood pressure 2022-11-11 20:31:31 77 mm[Hg] [facility] acute hospital Heart rate 2022-11-11 20:31:31 84 /min [facility] Respiratory rate 2022-11-11 20:31:31 12 /min [facility] Oxygen saturation in Arterial blood by Pulse oximetry 2022-11-11 20:31:31 90 /min [facility] Body temperature 2022-11-11 18:49:00 37.11 Theresa [facility] Body height 2022-11-11 18:49:00 160 cm [facility] Body weight 2022-11-11 18:49:00 68.04 kg [facility] BMI 2022-11-11 18:49:00 26.57 kg/m2 [facility] Body temperature 2022-08-11 14:00:00 36.5 Theresa [facility] Systolic blood pressure 2022-08-11 10:00:00 116 mm[Hg] [facility] hospital Diastolic blood pressure 2022-08-11 10:00:00 71 mm[Hg] [facility] acute hospital Heart rate 2022-08-11 10:00:00 70 /[facility] Respiratory rate 2022-08-11 10:00:00 16 /min [facility] Body weight 2022-08-11 10:00:00 65.499 kg [facility] BMI 2022-08-11 10:00:00 25.58 kg/m2 [facility] Oxygen saturation in Arterial blood by Pulse oximetry 2022-08-11 10:00:00 100 /min [facility] Body height 2022-08-10 22:12:00 160 cm [facility] Systolic blood pressure 2022-04-06 16:00:00 125 mm[Hg] [facility] hospital Diastolic blood pressure 2022-04-06 16:00:00 75 mm[Hg] [facility] acute hospital Heart rate 2022-04-06 16:00:00 87 /min [facility] Respiratory rate 2022-04-06 16:00:00 22 /min [facility] Oxygen saturation in Arterial blood by Pulse oximetry 2022-04-06 16:00:00 98 /min [facility] Body temperature 2022-04-06 14:41:00 37 Theresa [facility] Body height 2022-04-06 14:41:00 160 cm [facility] Body weight 2022-04-06 14:41:00 63.504 kg [facility] BMI 2022-04-06 14:41:00 24.80 kg/m2 [facility] Systolic blood pressure 2022-01-20 02:27:00 121 mm[Hg] [facility] acute hospital Diastolic blood pressure 2022-01-20 02:27:00 75 mm[Hg] [facility] acute hospital Heart rate 2022-01-20 02:27:00 79 /min [facility] Respiratory rate 2022-01-20 02:27:00 12 /min [facility] Oxygen saturation in Arterial blood by Pulse oximetry 2022-01-20 02:27:00 98 /min [facility] Body temperature 2022-01-19 22:19:00 36.44 Theresa [facility] Body weight 2022-01-19 22:19:00 60.328 kg [facility] BMI 2022-01-19 22:19:00 23.56 kg/m2 [facility] Systolic blood pressure 2021-12-30 20:52:00 134 mm[Hg] [facility] acute hospital Diastolic blood pressure 2021-12-30 20:52:00 76 mm[Hg] [facility] acute hospital Heart rate 2021-12-30 20:52:00 67 /min [facility] Body temperature 2021-12-30 20:26:00 36.67 Theresa [facility] Oxygen saturation in Arterial blood by Pulse oximetry 2021-12-30 20:26:00 99 /min [facility] Respiratory rate 2021-12-30 16:21:00 18 /min [facility] Body weight 2021-12-30 08:27:00 60.464 kg [facility] BMI 2021-12-30 08:27:00 23.61 kg/m2 [facility] Body height 2021-12-29 01:29:00 160 cm [facility] Procedures Procedure Date / Time Performed Performing Clinician Source TROPONIN I 2023-12-13 03:32:00 Rafael Byrd [facility] XR CHEST 1 VW 2023-12-13 02:18:14 Rafael Byrd [facility] LIPASE 2023-12-13 02:07:00 Rafael Byrd [facility] TROPONIN I 2023-12-13 02:07:00 Rafael Byrd [facility] COMP. METABOLIC PANEL ([id number]) 2023-12-13 02:07:00 Rafael Byrd [facility] CBC WITH DIFF 2023-12-13 02:07:00 Rafael Byrd [facility] XR CHEST 1 VW 2023-11-05 20:09:00 Sulaiman Hawkins [facility] LIPASE 2023-11-05 20:01:00 Sulaiman Hawkins [facility] MAGNESIUM 2023-11-05 20:01:00 Sulaiman Hawkins [facility] TROPONIN I 2023-11-05 20:01:00 [facility] COMP. METABOLIC PANEL ([id number]) 2023-11-05 20:01:00 Sulaiman Hawkins [facility] CBC WITH DIFF 2023-11-05 20:01:00 Sulaiman Hawkins [facility] N-TERMINAL PRO-BNP 2023-11-05 20:01:00 Sulaiman Hawkins [facility] MAGNESIUM 2022-11-11 19:05:00 Jessica [facility] BASIC METABOLIC PANEL (NA, K, CL, CO2, GLUCOSE, BUN, CREATININE, CA) 2022-11-11 19:05:[facility]22-11-11 19:05:00 Jessica [facility] CBC WITH DIFF 2022-11-11 19:05:00 Hemant Klein [facility] POCT GLUCOSE (AUTOMATED) 2022-08-11 13:36:00 Arvind Prado [facility] PHOSPHORUS 2022-08-11 10:35:00 Eve [facility] MAGNESIUM 2022-08-11 10:35:00 Eve [facility] AMMONIA, PLASMA 2022-08-11 10:35:00 Jessica Prado [facility] COMP. METABOLIC PANEL ([id number]) 2022-08-11 10:35:00 Eve [facility] CBC WITH DIFF 2022-08-11 10:35:00 Oswald Murphy [facility] POCT GLUCOSE (AUTOMATED) 2022-08-11 02:15:00 Arvind Prado [facility] POCT GLUCOSE (AUTOMATED) 2022-08-10 23:10:00 Arvind Prado [facility] POCT GLUCOSE (AUTOMATED) 2022-08-10 18:20:00 Arvind Prado [facility] POCT GLUCOSE (AUTOMATED) 2022-08-10 14:11:00 Arvind Prado [facility] POCT GLUCOSE (AUTOMATED) 2022-08-10 10:59:00 Gopal Driscoll [facility] COVID-19 (ID NOW RAPID TESTING) 2022-08-10 07:17:00 Rayray Driscoll [facility] LAB ONLY COVID INTERPRETATION 2022-08-10 07:17:00 Rayray Driscoll [facility] HB ECG ROUTINE & RHYTHM STRIP 2022-08-10 06:03:48 Rayray Driscoll [facility] URINALYSIS 2022-08-10 05:46:00 [facility] URINE DRUG (IMMUNOASSAY) - COMPREHENSIVE DRUG SCREEN W/O REFLEX 2022-08-10 05:45:00 Rayray Driscoll [facility] CREATINE KINASE 2022-08-10 05:16:00 [facility]-10 05:16:00 [facility] MAGNESIUM 2022-08-10 05:16:00 Rayray Driscoll [facility] TROPONIN I 2022-08-10 05:16:00 Rayray Driscoll [facility] COMP. METABOLIC PANEL ([id number]) 2022-08-10 05:16:00 Rayray Driscoll [facility] ETHANOL 2022-08-10 05:16:00 Rayray Driscoll [facility] CBC WITH DIFF 2022-08-10 05:16:00 Rayray Driscoll [facility] N-TERMINAL PRO-BNP 2022-08-10 05:16:00 Rayray Driscoll [facility] CRITICAL CARE 2022-08-10 04:52:00 Rayray Driscoll [facility] XR CHEST 1 VW 2022-04-06 14:51:50 Diya Chowdhury [facility] LIPASE 2022-04-06 14:42:00 Diya Chowdhury [facility] TROPONIN I 2022-04-06 14:42:00 Diya Chowdhury [facility] COMP. METABOLIC PANEL ([id number]) 2022-04-06 14:42:00 Diya Chowdhury [facility] CBC WITH DIFF 2022-04-06 14:42:00 Diya Chowdhury [facility] PROTHROMBIN TIME / INR 2022-04-06 14:42:00 Diya Chowdhury [facility] ACTIVATED PARTIAL THRMPLAS NELDA 2022-04-06 14:42:00 Luciana [facility] LACTIC ACID WHOLE BLOOD 2022-01-20 00:22:00 Leticia Baldwin [facility] URINE DRUG (IMMUNOASSAY) - COMPREHENSIVE DRUG SCREEN 2022-01-19 23:10:00 Leticia Baldwin [facility] URINALYSIS 2022-01-19 23:10:00 Leticia Baldwin [facility] TROPONIN I 2022-01-19 23:00:00 [facility] COMP. METABOLIC PANEL ([id number]) 2022-01-19 23:00:00 Leticia Baldwin [facility] LITHIUM 2022-01-19 23:00:00 Let[facility] ETHANOL 2022-01-19 23:00:00 Leticia [facility] CBC WITH DIFF 2022-01-19 23:00:00 Leticia Baldwin [facility] COVID-19 (ID NOW RAPID TESTING) 2022-01-19 23:00:00 [facility] [facility] CONTRAST 2022-01-19 22:49:00 Leticia Baldwin [facility] XR CHEST 1 VW 2022-01-19 22:41:00 Leticia Baldwin [facility] POCT GLUCOSE (AUTOMATED) 2022-01-19 22:25:00 Leticia Baldiwn [facility] POCT GLUCOSE (AUTOMATED) 2021-12-30 21:55:00 Arvind Prado [facility] POCT GLUCOSE (AUTOMATED) 2021-12-30 16:21:00 Arvind Prado [facility] POCT GLUCOSE (AUTOMATED) 2021-12-30 12:30:00 Arvind Prado [facility] HEPATIC FUNCTION PANEL (87856) (ALB,T.PRO,BILI T,BU/BC,ALT,AST,ALK PHOS) 2021-12-30 09:28:00 Maira Gaitan [facility] POCT GLUCOSE (AUTOMATED) 2021-12-30 02:11:00 Arvind Prado [facility] POCT GLUCOSE (AUTOMATED) 2021-12-29 21:41:00 Arvind Prado [facility] POCT GLUCOSE (AUTOMATED) 2021-12-29 16:37:00 Arvind Prado [facility] TRANSTHORACIC ECHO (TTE) COMPLETE W/ CONTRAST 2021-12-29 13:05:00 Jessica Prado [facility] POCT GLUCOSE (AUTOMATED) 2021-12-29 12:41:00 Arvind Prado [facility] TROPONIN I 2021-12-29 09:42:00 Eve [facility] TROPONIN I 2021-12-29 04:55:00 Eve [facility] CT HEAD WO CONTRAST 2021-12-28 21:18:22 Poppy Renteria [facility] AMMONIA, PLASMA 2021-12-28 21:00:00 Pia Renteria [facility] COVID-19 (ID NOW RAPID TESTING) 2021-12-28 20:42:00 Pia Renteria [facility] LAB ONLY COVID INTERPRETATION 2021-12-28 20:42:00 Pia Renteria [facility] URINE DRUG (IMMUNOASSAY) - COMPREHENSIVE DRUG SCREEN W/O REFLEX 2021-12-28 20:42:00 Pia Renteria [facility] URINALYSIS 2021-12-28 20:40:00 Pia Renteria [facility] N-TERMINAL PRO-BNP 2021-12-28 20:40:00 Corina Renteria [facility] TROPONIN I 2021-12-28 20:40:00 Pia Renteria [facility] THYROID STIMULATING HORMONE 2021-12-28 20:40:00 Jessica Prado [facility] COMP. METABOLIC PANEL (09775) 2021-12-28 20:40:00 Pia Renteria [facility] LIPID PANEL (66360)(TOTAL CHOLESTEROL, TRIGLYCERIDES, HDL) 2021-12-28 20:40:00 Demetrius Langford [facility] ETHANOL 2021-12-28 20:40:00 Demetrius Langford [facility] CBC WITH DIFF 2021-12-28 20:40:00 Pia Renteria [facility] GLYCOSYLATED HEMOGLOBIN (A1C) 2021-12-28 20:40:00 Jessica Prado [facility] PROTHROMBIN TIME / INR 2021-12-28 20:40:00 Lesly Renteria [facility] XR CHEST 1 VW 2021-12-28 20:16:00 Pia Renteria [facility] HB ECG ROUTINE & RHYTHM STRIP 2021-12-28 20:04:59 Pia Renteria [facility] Encounters Start Date/Time End Date/Time Encounter Type Admission Type Attending [facility] Care Facility Care Department Encounter ID Source 2021-09-17 16:45:00 Inpatient [facility] [id number] [facility] 2020-06-06 16:07:00 Inpatient [facility] [id number] [facility] 2020-06-06 06:20:00 Inpatient [facility] [id number] [facility] 2020-06-05 19:35:00 Inpatient [facility] [id number] [facility] 2020-05-23 19:53:00 Inpatient [facility] [id number] [facility] 2020-05-23 19:53:00 Inpatient [facility] [id number] [facility] 2023-12-12 20:44:00 2023-12-13 00:22:00 Emergency Rafael Byrd [facility] 1.2.840.114 350.1.13.10 4.2.7.2.686 [id number] [facility] 2023-11-05 14:54:00 2023-11-05 16:27:00 Emergency Sulaiman Hawkins [facility] 1.2.840.114 350.1.13.10 4.2.7.2.686 [id number] [facility] 2022-11-11 13:50:00 2022-11-11 16:07:00 Emergency X HEMANT KLEIN [facility] ERT [id number] [facility] 2022-11-11 13:50:00 2022-11-11 16:07:00 Emergency Hemant Klein [facility] 1.2.840.114 350.1.13.10 4.2.7.2.686 [id number] [facility] 2022-10-14 20:59:00 2022-10-14 20:59:00 Emergency [facility] [id number] [facility] 2022-10-14 20:59:00 2022-10-14 20:59:00 Emergency Emergency Pan Pinto [facility] [id number] [facility] 2022-08-09 22:59:00 2022-08-11 13:02:00 Outpatient X JESSICA PRADO [facility] MARGO [id number] [facility] 2022-08-09 22:59:00 2022-08-11 13:02:00 Emergency Mukund DriscollJessica Avilez [facility] 1.2.840.114 350.1.13.10 4.2.7.2.686 [id number] [facility] 2022-04-06 09:38:00 2022-04-06 11:42:00 Emergency X DIYA CHOWDHURY [facility] ERT [id number] [facility] 2022-04-06 09:38:00 2022-04-06 11:42:00 Emergency Toddjose l Diya [facility] 1.2.840.114 350.1.13.10 4.2.7.2.686 [id number] [facility] 2022-03-07 12:38:00 2022-03-07 12:38:00 Emergency [facility] [id number] [facility] 2022-03-07 12:38:00 2022-03-07 12:38:00 Emergency Emergency Fidel Cuellar [facility] [id number] [facility] 2022-01-19 17:18:00 2022-01-19 22:00:00 Emergency X DIRK YARBROUGH [facility] ERT [id number] [facility] 2022-01-19 17:18:00 2022-01-19 22:00:00 Emergency Nicolasa Leticia Dirk Sutton [facility] 1.2.840.114 350.1.13.10 4.2.7.2.686 [id number] [facility] 2021-12-31 00:00:00 2021-12-31 00:00:00 Transition of Care Bandar Faye MIKMarlon MASSIEL NAVARRO 1.2.840.114 350.1.13.10 4.2.7.2.686 [id number] [facility] 2021-12-28 14:53:00 2021-12-30 17:42:00 Inpatient X JESSICA PRADO [facility] [id number] [facility] 2021-12-28 14:53:00 2021-12-30 17:42:00 Hospital Encounter Pia Renteria Jelani [facility] 1.2.840.114 350.1.13.10 4.2.7.2.686 [id number] [facility] 2021-09-17 16:47:00 2021-09-17 16:47:00 Emergency [facility] [id number] [facility] 2020-06-06 16:07:00 2020-06-06 16:07:00 Emergency [facility] [id number] [facility] Results Test Description Test Time Test Comments Results Result Co mments Source [facility] [id number] 02:57:27* Test Item Value Reference Range Interpretation Comme nts TROPONIN I (test code = 9786928409) 0.003 ng/mL <=0.034 JUAN ALBERTO (test code [...] of biotin. Lab Interpretation (test code = 62384-2) Normal [facility]. METABOLIC PANEL (50852)2023-12-13 02:46:25* Test Item Value Reference Range Interpretation Comme nts NA (test code = 1018339940) 144 mmol/L 135-145 K (test code = 7439886751) 3.9 mmol/L 3.5-5.0 CL (test code = 1886308045) 110 mmol/L 98-108 H CO2 TOTAL (test code = 4659304414) 20 mmol/L 23-31 L AGAP (test code = 9578166022) 14 2-16 BUN (test code = 8151708366) 13 mg/dL 7-23 GLUCOSE (test code = 5808480248) 163 mg/dL 70-110 H CREATININE (test code = 2160-0) 0.63 mg/dL 0.60-1.25 TOTAL BILI (test code = 7777644300) 0.3 mg/dL 0.1-1.1 CALCIUM (test code = 3831949213) 9.0 mg/dL 8.6-10.6 T PROTEIN (test code = 1525104953) 7.2 g/dL 6.3-8.2 ALBUMIN (test code = 0770424742) 4.1 g/dL 3.5-5.0 ALK PHOS (test code = 7279332383) 129 U/L 34-122 H ALTv (test code = 1742-6) 15 U/L 5-50 AST(SGOT) (test code = 5879278897) 34 U/L 13-40 eGFR (test code = 83499-6) 113.7 mL/min/1.73m2 CKD-EPI eGFR (2020). Assuming creatinine has been stable day-to-day for at least three months, the eGFR indicates Category G1 (>= 90 mL/min/1.73 m2) Lab Interpretation (test code = 79492-4) [facility], [id number] 02:45:25* Test Item Value Reference Range Interpretation Comme nts LIPASE (test code = 7737495910) 47 U/L 0-220 Lab Interpretation (test cod e = 48532-9) [facility] 1 [id number] 02:40:35History: chest pain . Exam: XR CHEST 1 VW Date: 12/12/2023 9:15 PM Ordering provider: RAFAEL BYRD Technical quality: Adequate Comparison: 11/05/2023. Findings: Frontal view of the chest is obtained. The cardiac silhouette is normal in size. No evidence of infiltrate,pleural effusion, CHF, or pneumothorax.[facility] WITH [id number] 02:33:48* Test Item Value Reference Range Interpretation [...] 33.2 g/dL 31.2-35.0 RDW-SD (test code = 44930-7) 54.4 fL 38.5-51.6 H RDW-CV (test code = 788-0) 15.9 % 12.1-15.4 H PLT (test code = 777-3) 318 150-328 MPV (test code = 09301-6) 8.5 fL 9.8-13.0 L NRBC/100 WBC (test code = 5208193226) 0.0 0.0-10.0 NRBC x10^3 (test code = 1448027655) See_Comment [Automated messa ge] The system which generated this result transmitted reference range: 10*3/?L. The reference range was not used to interpret this result as normal/abnormal. GRAN MAT (NEUT) % (test code = 770-8) 50.1 % IMM GRAN % (test code = 2856137224) 0.40 % LYMPH % (test code = 736-9) 37.6 % MONO % (test code = 5905-5) 6.8 % EOS % (test code = 713-8) 4.1 % BASO % (test code = 706-2) 1.0 % GRAN MAT x10^3(ANC) (test code = 9163448152) 3.66 10*3/uL 1.99-6.95 IMM GRAN x10^3 (test code = 4571999367) 0.03 10*3/uL 0.00-0.06 LYMPH x10^3 (test code = 731-0) 2.75 10*3/uL 1.09-3.23 MONO x10^3 (test code = 742-7) 0.50 10*3/uL 0.36-1.02 EOS x10^3 (test code = 711-2) 0.30 10*3/uL 0.06-0.53 BASO x10^3 (test code = 704-7) 0.07 10*3/uL 0.01-0.09 Lab Interpretation (test code = 85050-8) [facility] 1 [id number] 20:15:30HISTORY: Chest pain. TECHNIQUE: Portable AP view of the chest is obtained. Comparison is beingmade with 04/06/2022 study. FINDINGS: No acute pneumonia. No pneumothorax or pleural effusion orpulmonarycongestion detected. Cardiac size is within normal limits.Prominent osteophytes are seen along right left vertebral margins at middleand lower thoracic spines. 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 [facility] (NA, K, CL, CO2, GLUCOSE, BUN, CREATININE, CA)2022-11-11 19:41:47* Test Item Value Reference Range Interpretation Comme nts NA (test code = 1151363798) 138 mmol/L 135-145 K (test code = 7249609915) 4.8 mmol/L 3.5-5.0 CL (test code = 2148509900) 103 mmol/L 98-108 CO2 TOTAL (test code = 0465383456) 26 mmol/L 23-31 AGAP (test code = 3254870300) 9 2-16 BUN (test code = 9399585563) 17 mg/dL 7-23 GLUCOSE (test code = 6346749045) 219 mg/dL 70-110 H CREATININE (test code = 1525394909) 0.72 mg/dL 0.60-1.25 CALCIUM (test code = 9338791643) 10.0 mg/dL 8.6-10.6 eGFR (test code = 0259246680) 114.6 mL/min/1.73m2 JUAN ALBERTO (test code = [...] imaging tests). Lab Interpretation (test code = 89542-2) [facility]normal [facility]MAGN[facility]IUM2023-05-23 19:41:47* Test Item Value Reference Range Interpretation Comme nts MAGNESIUM (test code = 3481256989) 1.8 mg/dL 1.7-2.4 Lab Interpretation (test cod e = 35069-5) Normal [facility] CenterCB WITH [id number] 19:25:26* Test Item Value Reference Range Interpretation Comme nts WBC (test code = 6690-2) 6.82 See_Comment [Automated VOYAAa fflick] The system which generated this result transmitted reference range: 4.20 - 10.70 10*3/?L. The reference range was not used to interpret this result as normal/abnormal. RBC (test code = 789-8) 4.98 See_Comment [Automated VOYAAa fflick] The system which generated this result transmitted [...] 33.9 g/dL 31.2-35.0 RDW-SD (test code = 82881-9) 46.0 fL 38.5-51.6 RDW-CV (test code = 788-0) 13.5 % 12.1-15.4 PLT (test code = 777-3) 237 See_Comment [Automated VOYAAa fflick] The system which generated this result transmitted reference range: 150 - 328 10*3/?L. The reference range was not used to interpret this result as normal/abnormal. MPV (test code = 43879-8) 8.9 fL 9.8-13.0 L NRBC/100 WBC (test code = 3179926502) 0.0 See_Comment [Automated me ssage] The system which generated this result transmitted reference range: 0.0 - 10.0 /100 WBCs. The reference range was not used to interpret this result as normal/abnormal. NRBC x10^3 (test code = 3665839150) See_Comment [Automated messa ge] The system which generated this result transmitted reference range: 10*3/?L. The reference range was not used to interpret this result as normal/abnormal. GRAN MAT (NEUT) % (test code = 770-8) 71.2 % IMM GRAN % (test code = 1098603218) 0.30 % LYMPH % (test code = 736-9) 18.2 % MONO % (test code = 5905-5) 8.4 % EOS % (test code = 713-8) 1.0 % BASO % (test code = 706-2) 0.9 % GRAN MAT x10^3(ANC) (test code = 6356548638) 4.86 10*3/uL 1.99-6.95 IMM GRAN x10^3 (test code = 7064339453) 0.00-0.06 LYMPH x10^3 (test code = 731-0) 1.24 10*3/uL 1.09-3.23 MONO x10^3 (test code = 742-7) 0.57 10*3/uL 0.36-1.02 EOS x10^3 (test code = 711-2) 0.07 10*3/uL 0.06-0.53 BASO x10^3 (test code = 704-7) 0.06 10*3/uL 0.01-0.09 Lab Interpretation (test code = 90143-0) [facility]normal [facility] CenterUA, Urinalysis Rflx Cult/[id number] 22:20:00* Test Item Value Reference Range Interpretation Comme nts Color,Urine (test code = UCOL) Yellow Yellow Clarity,Urine (test code = UCLAR) Clear Clear Ph, Urine (test code = UPH) 7.0 5.0-9.0 N Specific Gordon,Urine (test code = USG) 1.020 1.005-1.030 N [...] code = ULEU) Negative mg/dL Negative Drug Screen,[id number] 22:20:00* Test Item Value Reference Range Interpretation [...] UPROP) Negative Negative Complete Blood Count Auto [id number] 21:21:00* Test Item Value Reference Range Interpretation [...] code = NRBCP) 0 % Comprehensive Metabolic [id number] 21:21:00* Test Item Value Reference Range Interpretation [...] a race coefficient. Additional information canbe found at:[email or web address]_[email or web address] 5.[email or web address] ([email or web address]) [Automated message] The system [...] = ALP) 134 U/L 46-116 H Ethanol [id number] 21:21:00* Test Item Value Reference Range Interpretation Comme nts Ethanol (test code = ETOH) < 3 mg/dL The pharmacologi yudy response to blood alcohol levels mayvary from individual to individual. The fatal concentrationhas been reported to be >400mg/dL. POCT GLUCOSE (AUTOMATED)2022-08-11 13:40:35* Test Item Value Reference Range Interpretation Comme nts POCT GLU (test code = 7414688157) 121 mg/dL 70-110 H Lab Interpretation (test cod e = 16704-8) Abnormal [facility] GLUCOSE (AUTOMATED)2022-08-11 02:18:58* Test Item Value Reference Range Interpretation Comme nts POCT GLU (test code = 7970964893) 183 mg/dL 70-110 H Lab Interpretation (test cod e = 95524-0) Abnormal [facility] GLUCOSE (AUTOMATED)2022-08-10 23:16:11* Test Item Value Reference Range Interpretation Comme nts POCT GLU (test code = 8473980915) 176 mg/dL 70-110 H Lab Interpretation (test cod e = 24142-8) Abnormal [facility] GLUCOSE (AUTOMATED)2022-08-10 18:22:51* Test Item Value Reference Range Interpretation Comme nts POCT GLU (test code = 2793597907) 165 mg/dL 70-110 H Lab Interpretation (test cod e = 63410-1) Abnormal [facility] GLUCOSE (AUTOMATED)2022-08-10 14:18:05* Test Item Value Reference Range Interpretation Comme nts POCT GLU (test code = 3353137654) 138 mg/dL 70-110 H Lab Interpretation (test cod e = 49216-4) Abnormal [facility] GLUCOSE (AUTOMATED)2022-08-10 11:01:21* Test Item Value Reference Range Interpretation Comme nts POCT GLU (test code = 7259825356) 143 mg/dL 70-110 H Lab Interpretation (test cod e = 83011-0) Abnormal [facility] CenterTROP[facility]IN [id number] 06:51:18* Test Item Value Reference Range Interpretation Comme nts TROPONIN I (test code = 2841498292) 0.008 ng/mL <=0.034 JUAN ALBERTO (test code [...] of biotin. Lab Interpretation (test code = 51430-4) Normal [facility] CenterN-TERMINAL [id number]-[id number] 06:47:37* Test Item Value Reference Range Interpretation Comme nts NT-proBNP (test code = 5797276793) 37 pg/mL <=125 JUAN ALBERTO (test code = JUAN ALBERTO) Biotin has been reported to cause a negative bias, interpret results relative to patient's use of biotin. 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 METABOLIC PANEL (61994)2022-08-10 06:19:15* Test Item Value Reference Range Interpretation Comme nts NA (test code = 8377059972) 135 mmol/L 135-145 K (test code = 9606912117) 4.3 mmol/L 3.5-5.0 CL (test code = 6063156618) 98 mmol/L 98-108 CO2 TOTAL (test code = 3814115340) 30 mmol/L 23-31 AGAP (test code = 8685500031) 7 2-16 BUN (test code = 1209590440) 11 mg/dL 7-23 GLUCOSE (test code = 1137494560) 153 mg/dL 70-110 H CREATININE (test code = 8015852871) 0.77 mg/dL 0.60-1.25 TOTAL BILI (test code = 3779103699) 0.9 mg/dL 0.1-1.1 CALCIUM (test code = 5767722787) 10.0 mg/dL 8.6-10.6 T PROTEIN (test code = 4438984071) 7.7 g/dL 6.3-8.2 ALBUMIN (test code = 4317353553) 4.6 g/dL 3.5-5.0 ALK PHOS (test code = 6576301084) 92 U/L 34-122 ALTv (test code = 1742-6) 35 U/L 5-50 AST(SGOT) (test code = 7965059297) 42 U/L 13-40 H eGFR (test code = 1154064815) 106.1 mL/min/1.73m2 JUAN ALBERTO (test code = [...] imaging tests). Lab Interpretation (test code = 94685-7) [facility]normal [facility] CenterMAGNESIUM2023-02-19 06:19:15* Test Item Value Reference Range Interpretation Comme nts MAGNESIUM (test code = 2855987116) 2.2 mg/dL 1.7-2.4 Lab Interpretation (test cod e = 85763-5) Normal [facility] CenterLIPASE2023-02-19 06:18:55* Test Item Value Reference Range Interpretation Comme nts LIPASE (test code = 5260566368) 18 U/L 0-220 Lab Interpretation (test cod e = 82778-9) Normal [facility] CenterCREATINE [id number] 06:18:55* Test Item Value Reference Range Interpretation Comme nts CK (test code = 4841145477) 174 U/L 33-194 Lab Interpretation (test cod e = 44873-6) Normal [facility] CenterCBC WITH [id number] 06:02:35* Test Item Value Reference Range Interpretation [...] 32.4 g/dL 31.2-35.0 RDW-SD (test code = 29540-5) 50.2 fL 38.5-51.6 RDW-CV (test code = 788-0) 14.3 % 12.1-15.4 PLT (test code = 777-3) 241 See_Comment [Automated messa ge] The system which generated this result transmitted reference range: 150 - 328 10*3/?L. The reference range was not used to interpret this result as normal/abnormal. MPV (test code = 87750-7) 8.6 fL 9.8-13.0 L NRBC/100 WBC (test code = 4858779057) 0.0 See_Comment [Automated me ssage] The system which generated this result transmitted reference range: 0.0 - 10.0 /100 WBCs. The reference range was not used to interpret this result as normal/abnormal. NRBC x10^3 (test code = 0827061433) See_Comment [Automated messa ge] The system which generated this result transmitted reference range: 10*3/?L. The reference range was not used to interpret this result as normal/abnormal. GRAN MAT (NEUT) % (test code = 770-8) 63.9 % IMM GRAN % (test code = 4304894671) 0.50 % LYMPH % (test code = 736-9) 17.6 % MONO % (test code = 5905-5) 16.5 % EOS % (test code = 713-8) 0.7 % BASO % (test code = 706-2) 0.8 % GRAN MAT x10^3(ANC) (test code = 4664458317) 4.79 10*3/uL 1.99-6.95 IMM GRAN x10^3 (test code = 8467207709) 0.04 10*3/uL 0.00-0.06 LYMPH x10^3 (test code = 731-0) 1.32 10*3/uL 1.09-3.23 MONO x10^3 (test code = 742-7) 1.24 10*3/uL 0.36-1.02 H EOS x10^3 (test code = 711-2) 0.05 10*3/uL 0.06-0.53 L BASO x10^3 (test code = 704-7) 0.06 10*3/uL 0.01-0.09 Lab Interpretation (test code = 51140-4) Abnormal [facility] [id number] 15:15:32* Test Item Value Reference Range Interpretation Comments TROPONIN I (test code = 4158463236) 0.007 ng/mL See_Comment [Automated message] The system [...] of biotin. Lab Interpretation (test code = 55172-1) Normal [facility] CenteraPTT2022-10-16 15:08:29* Test Item Value Reference [...] 30 seconds. Lab Interpretation (test code = 91550-8) Normal [facility] CenterPROTHROMBIN TIME / [id number] 15:06:28* Test Item Value Reference Range Interpretation [...] the indications. Lab Interpretation (test code = 46048-9) Normal [facility] CenterCOMP. METABOLIC PANEL (85165)2022-04-06 15:03:31* Test Item Value Reference Range Interpretation Comme [facility] NA (test code = 3338598338) 136 mmol/L 135-145 K (test code = 3046318388) 5.0 mmol/L 3.5-5 CL (test code = 6958198768) 104 mmol/L 98-108 CO2 TOTAL (test code = 7160869126) 21 mmol/L 23-31 L AGAP (test code = 4121449930) 2-16 BUN (test code = 9756270957) 11 mg/dL 7-23 GLUCOSE (test code = 2715114354) 162 mg/dL 70-110 H CREATININE (test code = 7516491412) 0.52 mg/dL 0.6-1.25 L TOTAL BILI (test code = 3015276836) 1.0 mg/dL 0.1-1.1 CALCIUM (test code = 4523753614) 9.3 mg/dL 8.6-10.6 T PROTEIN (test code = 4969523365) 7.4 g/dL 6.3-8.2 ALBUMIN (test code = 5319326792) 4.4 g/dL 3.5-5 ALK PHOS (test code = 0612787953) 134 U/L 34-122 H ALTv (test code = 1742-6) 17 U/L 5-50 AST(SGOT) (test code = 6034909207) 38 U/L 13-40 eGFR (test code = 3893291300) mL/min/1.73m2 JUAN ALBERTO (test code = JUAN [...] imaging tests). Lab Interpretation (test code = 09375-5) Abnormal [facility] CenterLIP[facility], [id number] 15:03:31* Test Item Value Reference Range Interpretation Comme nts LIPASE (test code = 2444157717) 29 U/L 0-220 Lab Interpretation (test cod e = 34852-7) Normal [facility] CenterCBC WITH [id number] 14:51:49* Test Item Value Reference Range Interpretation Comme nts WBC (test code = 6690-2) See_Comment [Automated VOYAAa ge] The system which generated this result transmitted reference range: 4.20 - 10.70 10*3/?L. The reference range was not used to interpret this result as normal/abnormal. RBC (test code = 789-8) See_Comment [Automated VOYAAa ge] The system which generated this result [...] 34.0 g/dL 31.2-35 RDW-SD (test code = 07283-3) 45.9 fL 38.5-51.6 RDW-CV (test code = 788-0) 13.3 % 12.1-15.4 PLT (test code = 777-3) See_Comment [Automated VOYAAa ge] The system which generated this result transmitted reference range: 150 - 328 10*3/?L. The reference range was not used to interpret this result as normal/abnormal. MPV (test code = 14700-1) 8.4 fL 9.8-13 L NRBC/100 WBC (test code = 4305460039) See_Comment [Automated me ssage] The system which generated this result transmitted reference range: 0.0 - 10.0 /100 WBCs. The reference range was not used to interpret this result as normal/abnormal. NRBC x10^3 (test code = 2307387924) See_Comment [Automated messa ge] The system which generated this result transmitted reference range: 10*3/?L. The reference range was not used to interpret this result as normal/abnormal. GRAN MAT (NEUT) % (test code = 770-8) 63.0 % IMM GRAN % (test code = [id number]) 0.50 % LYMPH % (test code = 736-9) 25.2 % MONO % (test code = 5905-5) 9.8 % EOS % (test code = 713-8) 0.3 % BASO % (test code = 706-2) 1.2 % GRAN MAT x10^3(ANC) (test code = [id number]) 3.73 10*3/uL 1.99-6.95 IMM GRAN x10^3 (test code = [id number]) 0.03 10*3/uL 0-0.06 LYMPH x10^3 (test code = 731-0) 1.49 10*3/uL 1.09-3.23 MONO x10^3 (test code = 742-7) 0.58 10*3/uL 0.36-1.02 EOS x10^3 (test code = 711-2) 0.06-0.53 L BASO x10^3 (test code = 704-7) 0.07 10*3/uL 0.01-0.09 Lab Interpretation (test code = 53798-1) [facility] Cult/Xcwge2081-81-25 13:53:00* Test Item Value Reference Range Interpretation Comme nts Color,Urine (test code = UCOL) Yellow Yellow Clarity,Urine (test code = UCLAR) Cloudy Clear A Ph, Urine (test code = UPH) 7.5 5.0-9.0 N Specific Gordon,Urine (test code = USG) 1.025 1.005-1.030 N [...] = ULEU) Negative mg/dL Negative UF REFLEXDrug Screen,Sfoub4391-05-09 13:53:00* Test Item Value Reference Range Interpretation [...] UPROP) Negative Negative Complete Blood Count Auto [id number] 12:58:00* Test Item Value Reference Range Interpretation [...] = NRBCP) 0 % Coronavirus PCR, COVID19 Qqoau7473-72-41 12:58:00* Test Item Value Reference Range Interpretation Comme nts Coronavirus PCR, COVID19 Rapid (test code = SARSCOV2) Coronavirus PCR, COVID19 Rapid (test code = RSSSCMK26.1) Reference Range: Negative SARS-CoV-2 PCR Result: (test code = SARS-CoV-2 PCR Result:) Negative by RT-PCR COVID-19 Status: AsymptomaticComprehensive Metabolic Vcefx2011-95-39 12:58:00* Test Item Value Reference Range Interpretation [...] = ALP) 144 U/L 46-116 H Ethanol Tgcpq8143-32-36 12:58:00* Test Item Value Reference Range Interpretation Comme nts Ethanol (test code = ETOH) < 3 mg/dL The pharmacologi yudy response to blood alcohol levels mayvary from individual to individual. The fatal concentrationhas been reported to be >400mg/dL. [id number] 01:47:56* Test Item Value Reference Range Interpretation Comme nts [place] (test code = 8169109577) 0.7 mmol/L 0.6-1.2 JUAN ALBERTO (test code = JUAN ALBERTO) Toxic Range: ? Greater than 1.2 mmol/L Lab Interpretation (test code = 94722-5) [facility] [id number] 00:26:53* Test Item Value Reference Range Interpretation Comments TROPONIN I (test code = 8606411814) 0.002 ng/mL See_Comment [Automated message] The system [...] of biotin. Lab Interpretation (test code = 32824-6) Normal [facility]ETH[facility]OL2022-[facility] 00:18:52 ALCOHOL<10mg/dL01/19/2022 7:18 PM [facility]10 Mhlkekya03-040 Toxic>100 Depression of [employer]OCI[employer]IC>400 Fatalities ReportedMethodist [facility] Medical CenterCOMP. METABOLIC PANEL (23977)2022-01-20 00:16:16* Test Item Value Reference Range Interpretation Comme nts NA (test code = 1383355245) 137 mmol/L 135-145 K (test code = 8583058627) 4.5 mmol/L 3.5-5 CL (test code = 8645786099) 103 mmol/L 98-108 CO2 TOTAL (test code = 3322994600) 26 mmol/L 23-31 AGAP (test code = 8081697323) 2-16 BUN (test code = 5273621365) 10 mg/dL 7-23 GLUCOSE (test code = 5859362128) 121 mg/dL 70-110 H CREATININE (test code = 3297283781) 0.65 mg/dL 0.6-1.25 TOTAL BILI (test code = 8831504021) 0.8 mg/dL 0.1-1.1 CALCIUM (test code = 6528893851) 11.4 mg/dL 8.6-10.6 H T PROTEIN (test code = 5345452153) 7.2 g/dL 6.3-8.2 ALBUMIN (test code = 0221994409) 4.6 g/dL 3.5-5 ALK PHOS (test code = 8427182040) 112 U/L 34-122 ALTv (test code = 1742-6) 19 U/L 5-50 AST(SGOT) (test code = 1708023437) 26 U/L 13-40 eGFR (test code = 9336230954) mL/min/1.73m2 JUAN ALBERTO (test code = JUAN [...] imaging tests). Lab Interpretation (test code = 21973-7) Abnormal [facility] WITH [id number] 23:43:54* Test Item Value Reference Range Interpretation Comme nts WBC (test code = 6690-2) See_Comment [Automated VOYAAa ge] The system which generated this result transmitted reference range: 4.20 - 10.70 10*3/?L. The reference range was not used to interpret this result as normal/abnormal. RBC (test code = 789-8) See_Comment [Automated VOYAAa ge] The system which generated this result [...] 34.4 g/dL 31.2-35 RDW-SD (test code = 28398-8) 44.0 fL 38.5-51.6 RDW-CV (test code = 788-0) 12.6 % 12.1-15.4 PLT (test code = 777-3) See_Comment [Automated VOYAAa ge] The system which generated this result transmitted reference range: 150 - 328 10*3/?L. The reference range was not used to interpret this result as normal/abnormal. MPV (test code = 41440-9) 9.1 fL 9.8-13 L NRBC/100 WBC (test code = 8896436578) See_Comment [Automated [employer] ssage] The system which generated this result transmitted reference range: 0.0 - 10.0 /100 WBCs. The reference range was not used to interpret this result as normal/abnormal. NRBC x10^3 (test code = 3188817273) See_Comment [Automated VOYAAa ge] The system which generated this result transmitted reference range: 10*3/?L. The reference range was not used to interpret this result as normal/abnormal. GRAN MAT (NEUT) % (test code = 770-8) 69.8 % IMM GRAN % (test code = 3411517584) 0.40 % LYMPH % (test code = 736-9) 18.0 % MONO % (test code = 5905-5) 10.9 % EOS % (test code = 713-8) 0.1 % BASO % (test code = 706-2) 0.8 % GRAN MAT x10^3(ANC) (test code = 7428759661) 5.58 10*3/uL 1.99-6.95 IMM GRAN x10^3 (test code = 7246158832) 0.03 10*3/uL 0-0.06 LYMPH x10^3 (test code = 731-0) 1.44 10*3/uL 1.09-3.23 MONO x10^3 (test code = 742-7) 0.87 10*3/uL 0.36-1.02 EOS x10^3 (test code = 711-2) 0.06-0.53 L BASO x10^3 (test code = 704-7) 0.06 10*3/uL 0.01-0.09 Lab Interpretation (test code = 75883-5) Abnormal [facility] GLUCOSE (AUTOMATED)2022-01-19 22:27:41* Test Item Value Reference Range Interpretation Comme nts POCT GLU (test code = 1385034628) 123 mg/dL 70-110 H Lab Interpretation (test cod e = 42761-3) Abnormal [facility] GLUCOSE (AUTOMATED)2021-12-30 22:08:16* Test Item Value Reference Range Interpretation Comme nts POCT GLU (test code = 8024253065) 167 mg/dL 70-110 H Lab Interpretation (test cod e = 68732-6) Abnormal [facility] GLUCOSE (AUTOMATED)2021-12-30 16:50:40* Test Item Value Reference Range Interpretation Comme nts POCT GLU (test code = 1017031848) 154 mg/dL 70-110 H Lab Interpretation (test cod e = 84467-8) Abnormal [facility] GLUCOSE (AUTOMATED)2021-12-30 12:38:43* Test Item Value Reference Range Interpretation Comme nts POCT GLU (test code = 2554699914) 164 mg/dL 70-110 H Lab Interpretation (test cod e = 10217-6) Abnormal [facility] GLUCOSE (AUTOMATED)2021-12-30 02:14:58* Test Item Value Reference Range Interpretation Comme nts POCT GLU (test code = 3757519130) 220 mg/dL 70-110 H Lab Interpretation (test cod e = 40539-6) Abnormal [facility] GLUCOSE (AUTOMATED)2021-12-29 21:50:02* Test Item Value Reference Range Interpretation Comme nts POCT GLU (test code = 5945125252) 191 mg/dL 70-110 H Lab Interpretation (test cod e = 16831-3) Abnormal [facility] GLUCOSE (AUTOMATED)2021-12-29 20:15:01* Test Item Value Reference Range Interpretation Comme nts POCT GLU (test code = 9280367313) 163 mg/dL 70-110 H Lab Interpretation (test cod e = 73691-1) Abnormal [facility] CenterTransthoracic echo (TTE)2021-12-29 19:12:22* Test Item Value Reference Range Interpretation Comme nts Height (test code = 1401393957) in Weight (test code = 9950769050) lbs Systolic BP (test code = 5095069614) mmHg Diastolic BP (test code = 3894645892) mmHg Heart Rate (test code = 6318421474) bpm BSA (test code = 2050047462) 1.62 m2 Ao root annulus (test code = 4334976646) 2.45 cm Ao root diam (test code = 0140507068) 2.45 cm Aortic root (test code = 2790250309) 2.45 cm ACS (test code = 0701647902) 1.66 cm LA size (test code = 2714143304) 3.2 cm LVOT diameter (test code = 2341136723) 1.95 cm LVIDD (test code = 7585906772) 3.60 cm IVS (test code = 3719753180) 0.94 cm Interventricular Septum Diastolic Thickness by 2D (test code = 4517839) 0.94 cm LVPWD (test code = 6769502233) 0.80 cm PW (test code = 5138382213) 0.80 cm 0.6-1.1 EF(Teich) (test code = 5521259557) 52.80 % LVIDS (test code = 6807034695) 2.60 cm FS (test code = 1180038231) 27 % EF - 2D (test code = 11150523) 52.80 % LAV(MOD-sp4) (test code = 2443639612) 16.80 mL MV Peak E Jovany (test code = 1277968564) 46.1 cm/s E wave decelartion time (test code = 0780857968) 0.31 s MV Peak A Jovany (test code = 1423968145) 58.1 cm/s E/A ratio (test code = 2156944912) ratio MV E/e' septal (test code = 0463874654) 5.7 cm/s Tapse (test code = 9710608561) 1.60 cm LVOT stroke volume (test code = 5733086537) 52.10 cm3 LVOT peak jovany (test code = 6055435351) 110.6 cm/s LVOT mn grad (test code = 7361470621) mmHg AV LVOT peak gradient (test code = 8645168632) mmHg LVOT peak VTI (test code = 7702648557) 17.4 cm LV V1 mean (test code = 5901789251) 66.10 cm/s Aortic valve mean velocity (test code = 7538007880) 73.0 cm/s Ao peak jovany (test code = 6921482296) 124.6 cm/s Ao VTI (test code = 7905690739) 18.6 cm AV area by cont VTI (test code = 9148292692) 2.8 cm2 AV area peak jovany (test code = 3058929379) 2.7 cm2 Ao max PG (test code = 0353685018) 6.20 mm[Hg] AV peak gradient (test code = 1592837911) mmHg AV valve area (test code = 3447738252) 2.80 cm2 AV mean gradient (test code = 2947340810) mmHg Radiology Study observation (narrative) (test code = 05223-9) JUAN ALBERTO (test code = JUAN ALBERTO) [...] mL of Lumason ultrasound enhancing agent used. [facility]PO[facility] (AUT[facility])2021-12-29 12:50:31* Test Item Value Reference Range Interpretation Comme nts POCT GLU (test code = 0028787378) 141 mg/dL 70-110 H Lab Interpretation (test cod e = 21667-8) Abnormal [facility] CenterTroponin Y2363-70-09 10:38:31* Test Item Value Reference Range Interpretation Comments TROPONIN I (test code = 4015756719) 0.003 ng/mL See_Comment [Automated message] The system [...] of biotin. Lab Interpretation (test code = 70964-7) Normal [facility] CenterLIPID PANEL (21164)(TOTAL CHOLESTEROL, TRIGLYCERIDES, HDL)2021-12-29 05:56:47* Test Item Value Reference Range Interpretation Comme nts CHOL (test code = 8516792854) 168 mg/dL 120-200 HDL (test code = 8614567144) 102 mg/dL See_Comment [[email or web address]] The system which generated this result transmitted reference range: >=40. The reference range was not used to interpret this result as normal/abnormal. HDLC RATIO (test code = 1817405094) See_Comment [Automated [employer]] The system which generated this result transmitted reference range: <=5.0. The reference range was not used to interpret this result as normal/abnormal. TRIG (test code = 8193435565) 55 mg/dL 30-170 LDL CHOL (test code = 19174-5) 55 mg/dL See_Comment [[email or web address]] The system which generated this result transmitted reference range: <=160. The reference range was not used to interpret this result as normal/abnormal. VLDL (test code = 1128266619) 11 mg/dL 5-60 Lab Interpretation (test code = 61491-4) Normal [facility] CenterThyroid Stimulating Hormone (TSH)2021-12-29 05:40:29* Test Item Value Reference Range Interpretation Comme nts TSH (test code = 4207549230) See_Comment Biotin has been reported to cause a negative bias, interpret results relative to patient's use of biotin. [Automated message] The system which generated this result transmitted reference range: 0.45 - 4.70 mIU/L. The reference range was not used to interpret this result as normal/abnormal. Lab Interpretation (test code = 59297-4) Normal [facility] [id number] 05:34:29* Test Item Value Reference Range Interpretation Comments TROPONIN I (test code = 9492710888) 0.006 ng/mL See_Comment [Automated message] The system [...] of biotin. Lab Interpretation (test code = 64152-3) Normal [facility] CenterETHANOL2022-07-10 04:43:01 ALCOHOL<10mg/dL12/28/2021 11:43 PM [facility] Greater than or equal to 80 mg/dL. NOTE: Whole blood values are approximately 10% to 15% lower than serum and plasma.[facility] Glycosylated Hemoglobin (A1C)2021-12-29 01:51:44* Test Item Value Reference Range Interpretation Comme nts HGB A1C (test code = 4548-4) 6.5 % 4-5.7 H JUAN ALBERTO (test code = JUAN ALBERTO) Reference RangesNormal: <5.7%Prediabetes: 5.7 - 6.4%Diabetes: > 6.5% Lab Interpretation (test code = 04655-9) Abnormal [facility] [id number] 21:26:50* Test Item Value Reference Range Interpretation Comments TROPONIN I (test code = 9221683040) 0.002 ng/mL See_Comment [Automated message] The system [...] of biotin. Lab Interpretation (test code = 97050-1) Normal [facility] CenterN-TERMINAL GBV-OPQ3415-58-09 21:23:29* Test Item Value Reference Range Interpretation Comme nts NT-proBNP (test code = 9517860725) 41 pg/mL See_Comment [Automated message] The system which generated this result transmitted reference range: <=125. The reference range was not used to interpret this result as normal/abnormal. JUAN ALBERTO (test code = JUAN ALBERTO) Biotin has been reported to cause a negative bias, interpret results relative to patient's use of biotin. Lab Interpretation (test code = 60813-6) Normal [facility] CenterAMMONIA, [id number] 21:20:38* Test Item Value Reference Range Interpretation Comme nts AMMONIA (test code = 1239295624) 9-33 L Slight hemolysis Lab Interpretation (test code = 53869-5) Abnormal [facility] CenterCOMP. METABOLIC PANEL (84848)2021-12-28 21:08:48* Test Item Value Reference Range Interpretation Comme nts NA (test code = 5157509454) 137 mmol/L 135-145 K (test code = 6173326363) 4.5 mmol/L 3.5-5 CL (test code = 7778478167) 97 mmol/L 98-108 L CO2 TOTAL (test code = 1331947537) 29 mmol/L 23-31 AGAP (test code = 5543913614) 2-16 BUN (test code = 3226509970) 10 mg/dL 7-23 GLUCOSE (test code = 5668537088) 188 mg/dL 70-110 H CREATININE (test code = 4683671643) 0.58 mg/dL 0.6-1.25 L TOTAL BILI (test code = 5137244659) 0.8 mg/dL 0.1-1.1 CALCIUM (test code = 9461231334) 10.5 mg/dL 8.6-10.6 T PROTEIN (test code = 4917975829) 7.6 g/dL 6.3-8.2 ALBUMIN (test code = 0177330175) 4.5 g/dL 3.5-5 ALK PHOS (test code = 1174990663) 107 U/L 34-122 ALTv (test code = 1742-6) 66 U/L 5-50 H AST(SGOT) (test code = 8932735127) 96 U/L 13-40 H eGFR (test code = 8965591365) mL/min/1.73m2 JUAN ALBERTO (test code = JUAN [...] imaging tests). Lab Interpretation (test code = 28679-2) Abnormal [facility] CenterPROTHROMBIN TIME / [id number] 21:01:25* Test Item Value Reference Range Interpretation Comme nts PROTIME PATIENT (test code = 5964-2) See_Comment [Automated VOYAAa ge] The system which generated this result transmitted reference range: 12.0 - 14.7 Seconds. The reference range was not used to interpret this result as normal/abnormal. INR (test code = 6301-6) Normal INR <1.1; Warfarin Therapeutic range 2.0 to 3.0 or 2.5 to 3.5, depending upon the indications. Lab Interpretation (test code = 44827-3) Normal [facility] CenterCBC WITH [id number] 20:54:03* Test Item Value Reference Range Interpretation Comme nts WBC (test code = 6690-2) See_Comment [Automated VOYAAa fflick] The system which generated this result transmitted reference range: 4.20 - 10.70 10*3/?L. The reference range was not used to interpret this result as normal/abnormal. RBC (test code = 789-8) See_Comment [Automated VOYAAa ge] The system which generated this result [...] 34.2 g/dL 31.2-35 RDW-SD (test code = 83425-7) 47.8 fL 38.5-51.6 RDW-CV (test code = 788-0) 13.3 % 12.1-15.4 PLT (test code = 777-3) See_Comment [Automated VOYAAa ge] The system which generated this result transmitted reference range: 150 - 328 10*3/?L. The reference range was not used to interpret this result as normal/abnormal. MPV (test code = 53888-8) 8.6 fL 9.8-13 L NRBC/100 WBC (test code = 4850097512) See_Comment [Automated me ssage] The system which generated this result transmitted reference range: 0.0 - 10.0 /100 WBCs. The reference range was not used to interpret this result as normal/abnormal. NRBC x10^3 (test code = 0644255972) See_Comment [Automated messa ge] The system which generated this result transmitted reference range: 10*3/?L. The reference range was not used to interpret this result as normal/abnormal. GRAN MAT (NEUT) % (test code = 770-8) 64.1 % IMM GRAN % (test code = 1959880657) 0.40 % LYMPH % (test code = 736-9) 16.6 % MONO % (test code = 5905-5) 17.2 % EOS % (test code = 713-8) 0.2 % BASO % (test code = 706-2) 1.5 % GRAN MAT x10^3(ANC) (test code = 2240866775) 3.47 10*3/uL 1.99-6.95 IMM GRAN x10^3 (test code = 4394783394) 0-0.06 LYMPH x10^3 (test code = 731-0) 0.90 10*3/uL 1.09-3.23 L MONO x10^3 (test code = 742-7) 0.93 10*3/uL 0.36-1.02 EOS x10^3 (test code = 711-2) 0.06-0.53 L BASO x10^3 (test code = 704-7) 0.08 10*3/uL 0.01-0.09 Lab Interpretation (test code = 19936-2) Abnormal [facility] CenterEthanol Vayfi6289-89-65 21:08:00* Test Item Value Reference Range Interpretation Comme nts Ethanol (test code = ETOH) < 3 mg/dL The pharmacologi yudy response to blood alcohol levels mayvary from individual to individual. The fatal concentrationhas been reported to be >400mg/dL. Complete Blood Count Auto Ishf6798-16-05 17:33:00* Test Item Value Reference Range Interpretation [...] = NRBCP) 0 % UA, Urinalysis Rflx Cult/Txowq0501-64-59 17:33:00* Test Item Value Reference Range Interpretation Comme nts Color,Urine (test code = UCOL) Dark Yellow Yellow A Clarity,Urine (test code = UCLAR) Clear Clear Ph, Urine (test code = UPH) 6.5 5.0-9.0 N Specific Gordon,Urine (test code = USG) 1.015 1.005-1.030 N [...] = ULEU) Trace mg/dL Negative A Urine Ipynwvctjot3694-29-34 17:33:00* Test Item Value Reference Range Interpretation Comme nts RBC,Urine (test code = URBCUF) None Seen /HPF 0-2 WBC,Urine (test code = UWBCUF) 0-5 /HPF 0-5 Epithelial Cell,Urine (test code = UECUF) 0-5 /HPF 0-5 Casts,Urine (test code = UCASTUF) None Seen /LPF None Seen Bacteria,Urine (test code = UBACTUF) None Seen /hpf None Seen Drug Screen,Tkbji2704-96-74 17:33:00* Test Item Value Reference Range Interpretation [...] code = UPROP) Negative Negative Comprehensive Metabolic Gknxv7343-70-18 17:33:00* Test Item Value Reference Range Interpretation [...] 101 U/L 46-116 N Sars-CoV-2/FLU A/B RSV [id number] 17:31:00* Test Item Value Reference Range Interpretation [...] SARS-CoV-2 PCR Result:) Negative by RT-PCR Drug Screen,Jfqwt7366-90-22 17:20:00* Test Item Value Reference Range Interpretation [...] UPROP) Negative Negative Complete Blood Count Auto Onfy8134-03-78 17:14:00* Test Item Value Reference Range Interpretation [...] code = NRBCP) 0 % Comprehensive Metabolic Yvytd8530-57-60 17:14:00* Test Item Value Reference Range Interpretation [...] = ALP) 207 U/L 46-116 H Ethanol Ntaib2850-13-70 17:14:00* Test Item Value Reference Range Interpretation Comme nts Ethanol (test code = ETOH) 192 mg/dL Complete Blood Count Auto Ifya8400-12-78 20:20:00* Test Item Value Reference Range Interpretation [...] code = NRBCP) 0 % Comprehensive Metabolic Xtsck9568-52-61 20:20:00* Test Item Value Reference Range Interpretation [...] = ALP) 189 U/L 46-116 H Ethanol Obmrn0157-53-15 20:20:00* Test Item Value Reference Range Interpretation Comme nts Ethanol (test code = ETOH) 10 mg/dL Sars-CoV-2/FLU A/B RSV [id number] 20:20:00* Test Item Value Reference Range Interpretation [...] Negative by Nucleic Acid Amplification UA, Urinalysis Otvmrkjcqxw3245-19-82 20:20:00* Test Item Value Reference Range Interpretation Comme nts Color,Urine (test code = UCOL) Yellow Y Clarity,Urine (test code = UCLAR) Clear Clear PH,Urine (test code = UPH.XX) 7.0 5.5-8.5 Specific Gordon,Urine (test code = USG) 1.020 1.005-1.030 N [...] code = ULEU) Negative cells/uL Negative Drug Screen,Vrkph7874-90-61 20:20:00* Test Item Value Reference Range Interpretation [...] RESULT TO FO LLOW CT head/brain wo [facility] [address] [place] [address] Patient Name: Walt Velazquez Medical Record#: [id number] Address: Homeless City/State/Zip: [place] [address]: Vinnie Navarro MD Insurance: Self Pay /Age/Sex: 1970/50/M Admit/Reg Date: 09/17/[address]: Vinnie Navarro MD Location: [facility]/ PCP: PcpMd KERWIN Jimenez Date of Service: 09/17/21 Order (s): CT head/brain wo con CPT Code: 69612 Report Number: [id number] Reason for Exam: Altered mental status Location [...] steady gait, in no apparent distress, T [facility] [employer] 2023-12-12 22:20:05 Pt removed all monitoring equipment [facility] [employer] 2023-12-12 20:33:23 Pt brought in by [place] [facility] for medical clearance. [facility] check pt out on scene but after pt complained of chest pain. [place] [facility] brought pt in for clearance for county. Zeina Albrecht RN [facility] 2023-11-05 16:26:20 Pt discharged with diagnosis of CP. Printed and verbal instructions reviewed with and given to pt. Prescriptions given x 0. Pt verbalized understanding of teaching and recommended follow-up. Denies questions or concerns at this time. Pt ambulatory to holding room to await transportation at discharge. Appears in no apparent distress. No ataxia noted. [facility]. Renae Saldivar RN [facility] 2023-11-05 14:56:10 Walt Festus Velazquez Sr. is a 52 year old male arrive via [facility] c/o " throbbing ball in chest" since 0600 has been constant, pt immediately asks for food, Emani Gomez RN [facility]
--- NOTE | 2024-02-09 16:54 | ER ---
Nurse's Notes [facility] Name: Walt Velazquez Age: 53 yrs Sex: Male : 1970 Arrival Date: 02/09/2024 Time: 13:50 Bed DX4 Private MD: Diagnosis: Alcohol dependence with withdrawal, uncomplicated Presentation: 02/08 13:56 Chief complaint: EMS states: LEFT KNEE AND CHEST PAIN. WALKED OUT TO EMS. PICKED UPP AT db MOM'S OUT MOM WOULDN'T LET PATIENT IN. Coronavirus screen: Client denies travel out of the [place] in the last 14 days. At this time, the client does not indicate any symptoms associated with coronavirus-19. Ebola Screen: Patient negative for fever greater than or equal to 101.5 degrees Fahrenheit, and additional compatible Ebola Virus Disease symptoms Patient denies exposure to infectious person. Patient denies travel to an Ebola-affected area in the 21 days before illness onset. No symptoms or risks identified at this time. Initial Sepsis Screen: Does the patient meet any 2 criteria? No. Patient's initial sepsis screen is negative. Does the patient have a suspected source of infection? No. Patient's initial sepsis screen is negative. Risk Assessment: Do you want to hurt yourself or someone else? Patient reports no desire to harm self or others. Onset of symptoms was February 09, 2024. 13:56 Method Of Arrival: EMS: [facility] db 13:56 Acuity: LATASHA 3 db Triage Assessment: 13:57 General: Appears in no apparent distress. comfortable, Behavior is calm, cooperative. db Pain: Complains of pain in chest. Historical: - Allergies: 13:57 Trazodone; db - PMHx: 13:57 Hypertensive disorder; Seizure; db - Immunization history:: Adult Immunizations unknown. - Infectious Disease History:: Denies. - Social history:: Smoking status: Patient reports the use of cigarette tobacco products, smokes one-half pack cigarettes per day. - Family history:: not pertinent. - Hospitalizations: : No recent hospitalization is reported. Screenin:47 [facility] ED Fall Risk Assessment (Adult) History of falling in the last 3 months, ll1 including since admission No falls in past 3 months (0 pts) Confusion or Disorientation No (0 pts) Intoxicated or Sedated No (0 pts) Impaired Gait No (0 pts) Mobility Assist Device Used No (0 pt) Altered Elimination No (0 pt) Score/Fall Risk Level 0 - 2 = Low Risk Maintained a safe environment, Hourly rounding (assess needs \T\ fall precautionary measures) done. Abuse screen: Denies threats or abuse. Nutritional screening: No deficits noted. Tuberculosis screening: No symptoms or risk factors identified. Assessment: 14:07 Reassessment: PATIENT WALKED OUT OF ER. UNABLE TO LOCATE. db 14:58 General: Appears in no apparent distress. Behavior is calm, cooperative, appropriate ll1 for age. Pain: Complains of pain in chest and L knee Quality of pain is described as aching. Cardiovascular: Reports chest pain. Musculoskeletal: Reports L knee pain. 14:59 Reassessment: No changes from previously documented assessment. Patient and/or family ll1 updated on plan of care and expected duration. Pain level reassessed. Patient is alert, oriented x 3, equal unlabored respirations, skin warm/dry/pink. 15:30 Reassessment: No changes from previously documented assessment. Patient and/or family ll1 updated on plan of care and expected duration. Pain level reassessed. Patient is alert, oriented x 3, equal unlabored respirations, skin warm/dry/pink. Patient states feeling better. eating sandwiches, feeling better. Vital Signs: 13:56 BP 100 / 58; Pulse 98; Resp 16; Temp 98.5; Pulse Ox 97% ; db 16:48 BP 110 / 61; Pulse 92; Resp 16; Pulse Ox 97% ; Pain 0/10; ll1 16:48 Pain Scale: Adult ll1 ED Course: 13:51 Patient arrived in ED. rn 13:51 Kaiser Marie MD is Attending Physician. rn 13:57 Triage completed. db 14:57 IV is patent, is intact, with fluids infusing freely, with good blood return, 20 L AC. ll1 15:30 IV discontinued, intact, bleeding controlled, No redness/swelling at site. Pressure ll1 dressing applied. 16:47 No provider procedures requiring assistance completed. ll1 16:47 Arm band placed on. ll1 16:48 Patient has correct armband on for positive identification. Provided Education on: ll1 return to ED for worsening symptoms. Cardiac monitoring not applicable on this patient. Administered Medications: 14:58 Drug: NS 0.9% IV 1000 ml IV at 1000 ml once Route: IV; Rate: 1000 ml; Site: left ll1 antecubital; 15:40 Follow up: Response: No adverse reaction; IV Status: Completed infusion; IV Intake: ll1 1000ml 16:06 Follow up: Response: No adverse reaction; IV Status: Completed infusion; IV Intake: ll1 1000ml 14:58 Drug: Diazepam PO 2 mg PO once Route: PO; ll1 15:41 Follow up: Response: No adverse reaction; Marked relief of symptoms; Nausea is ll1 decreased; Other; RASS: Alert and Calm (0); decreased shaking to hands Medication: 16:48 VIS not applicable for this client. ll1 Intake: 15:40 IV: 1000ml; Total: 1000ml. ll1 16:06 IV: 1000ml; Total: 2000ml. ll1 Outcome: 16:47 Discharged to home ambulatory, ll1 16:47 Condition: stable 16:47 Discharge instructions given to patient, Instructed on discharge instructions, follow up and referral plans. Demonstrated understanding of instructions, follow-up care, left without written discharge instructions 16:54 Discharge ordered by . rn 16:56 Patient left the ED. 1 Signatures: Kaiser Marie MD MD rn Lewis, Lynsay, RN RN 1 Shannon Iqbal RN RN db
--- NOTE | 2024-02-09 16:54 | EDPHYS ---
Physician Documentation [facility] Name: Walt Velazquez Age: 53 yrs Sex: Male : 1970 Arrival Date: 02/09/2024 Time: 13:50 Bed DX4 Private MD: ED Physician Kaiser Marie HPI: 02/08 14:28 This 53 yrs old Male presents to ER via EMS with complaints of doesn't feel rn right. 14:28 Patient reports has not had anything to drink since yesterday and just does not feel rn right. Reports thirsty and shaky. No seizure today. No chest pain or shortness of breath. No abdominal pain. No other acute complaints.. Onset: The symptoms/episode began/occurred today. Severity of symptoms: At their worst the symptoms were mild in the emergency department the symptoms are unchanged. The patient has experienced similar episodes in the past. The patient has been recently seen at the [facility] Emergency Department. Historical: - Allergies: 13:57 Trazodone; db - PMHx: 13:57 Hypertensive disorder; Seizure; db - Immunization history:: Adult Immunizations unknown. - Infectious Disease History:: Denies. - Social history:: Smoking status: Patient reports the use of cigarette tobacco products, smokes one-half pack cigarettes per day. - Family history:: not pertinent. - Hospitalizations: : No recent hospitalization is reported. ROS: 14:28 Constitutional: Negative for fever, chills, and weight loss, Cardiovascular: Negative rn for chest pain, palpitations, and edema, Respiratory: Negative for shortness of breath, cough, wheezing, and pleuritic chest pain, Abdomen/GI: Negative for abdominal pain, nausea, vomiting, diarrhea, and constipation, Back: Negative for injury and pain, MS/Extremity: Negative for injury and deformity, Neuro: Negative for headache, numbness, tingling, and seizure, Exam: 14:28 Constitutional: This is a well developed, well nourished patient who is awake, alert, rn and in no acute distress. Cardiovascular: Regular rate and rhythm. No pulse deficits. Respiratory: No increased work of breathing, no retractions or nasal flaring. Abdomen/GI: Soft, non-tender MS/ Extremity: Pulses equal, no cyanosis. Coarse extremity tremor Neuro: Awake and alert, GCS 15, oriented to person, place, time, and situation. Cranial nerves II-XII grossly intact. Motor strength 5/5 in all extremities. Sensory grossly intact. Normal gait. Vital Signs: 13:56 BP 100 / 58; Pulse 98; Resp 16; Temp 98.5; Pulse Ox 97% ; db 16:48 BP 110 / 61; Pulse 92; Resp 16; Pulse Ox 97% ; Pain 0/10; ll1 16:48 Pain Scale: Adult ll1 MDM: 13:51 Patient medically screened. rn 16:50 Differential Diagnosis . rn 16:52 Data reviewed: vital signs, nurses notes, old medical records, and as a result, I will chemist intern patient. Counseling: I had a detailed discussion with the patient and/or guardian regarding the historical points, exam findings, and any diagnostic results supporting the discharge/admit diagnosis, the need for outpatient follow up, to return to the emergency department if symptoms worsen or persist or if there are any questions or concerns that arise at home. Response to treatment: the patient's symptoms have markedly improved after treatment, and as a result, I will discharge patient. Special discussion: I discussed with the patient/guardian in detail that at this point there is no indication for admission to the hospital. It is understood, however, that if the symptoms persist or worsen the patient needs to return immediately for re-evaluation. ED course: Pt requests to leave, feels much better, return precautions given and understood. . 02/08 14:27 Order name: IV Start; Complete Time: 14:50 rn Administered Medications: 14:58 Drug: NS 0.9% IV 1000 ml IV at 1000 ml once Route: IV; Rate: 1000 ml; Site: left ll1 antecubital; 15:40 Follow up: Response: No adverse reaction; IV Status: Completed infusion; IV Intake: ll1 1000ml 16:06 Follow up: Response: No adverse reaction; IV Status: Completed infusion; IV Intake: ll1 1000ml 14:58 Drug: Diazepam PO 2 mg PO once Route: PO; ll1 15:41 Follow up: Response: No adverse reaction; Marked relief of symptoms; Nausea is ll1 decreased; Other; RASS: Alert and Calm (0); decreased shaking to hands Disposition Summary: 02/09/24 16:54 Discharge Ordered Notes: Location: Home rn Problem: new rn Symptoms: have improved rn Condition: Stable rn Diagnosis - Alcohol dependence with withdrawal, uncomplicated rn Followup: rn - With: Private Physician - When: As needed - Reason: Recheck today's complaints, Re-evaluation by your physician Discharge Instructions: - Discharge Summary Sheet rn - Finding Treatment for Addiction rn - Alcohol Withdrawal Syndrome rn - Alcohol Use Disorder rn Forms: - Medication Reconciliation Form rn - Antibiotic cardiothoracic icu rn - Prescription Opioid Use rn - Patient Portal Instructions rn - Leadership Thank You Letter rn Signatures: Kaiser Marie MD MD rn Lewis, Lynsay, RN RN 1 Shannon Iqbal RN RN db
[2024-02-09 18:04] VITALS: TEMP 98.5; O2SAT 97
[2024-02-09 18:05] VITALS: BP 110/61
== END 2024-02-09 16:56 | disposition home or self-care (01) ==
LOC: ER 13:50
DX: F10.239 Alcohol dependence with withdrawal, unspecified (principal)
CPT/HCPCS: J7030

== ENCOUNTER 2024-02-11 16:32 | Emergency (ER) | payer SELFPAY ==
--- OUTSIDE RECORDS SUMMARY | 2024-02-11 16:37 | XMS REPORT | Continuity of Care Document ---
Author Name Unknown Address [address] [facility] [place] [address] [facility] Address [address] [facility] [address] [facility] [place] [address] Care Team Providers Care Rn Community Name Role Phone Pcp-None Primary Care Physician Unavailab Rafael Thomas MD Attending Clinician [phone] Sulaiman Hawkins DO Attending Clinician [phone] HEMANT KLEIN Attending Clinician Unavailable Hemant Klein MD Attending Clinician [phone] Pan Pinto Attending Clinician Unavailab JESSICA Gallardo Attending Clinician Unavailable Rayray Driscoll MD Attending Clinician [phone] Jessica Prado MD Attending Clinician [phone] Oswald Murphy MD Attending Clinician [phone] DIYA CHOWDHURY Attending Clinician Unavailab Diya Mackey DO Attending Clinician [phone] Fidel Cuellar Attending Clinician Unavailable DIRK YARBROUGH Attending Clinician Unavailable Leticia Rowland Attending Clinician [phone] Dirk Yarbrough MD Attending Clinician Faye Portillo LVN Attending Clinician [phone] Pia Reddy Attending Clinician [phone] Vinnie Navarro Attending Clinician Unavailable OSWALD MURPHY Admitting Clinician Unavailable Oswald Murphy MD Admitting Clinician [phone] DIYA CHOWDHURY Admitting Clinician UnavailLeticia Gaytan Admitting Clinician Unavailable JESSICA PRADO Admitting Clinician Unavailable Jessica Prado MD Admitting Clinician [phone] Payers Payer Name Policy Type Policy Number Effective Date Expirati on Date Source Problems Condition Name Condition Details Condition Category Status Onset Date Resolution Date Last Treatment Date Treating Clinician Comments Source Alcohol withdrawal syndrome with complicati on Alcohol withdrawal syndrome with complicati on Disease Active 2-19 00:00: 00 [facility] Type 2 diabetes mellitus with other specified complicati on Type 2 diabetes mellitus with other specified complicati on Disease Active 12-29 00:00: 00 [facility] Dyslipidem ia Dyslipidem ia Disease Active 12-29 00:00: 00 [facility] Chest pain, unspecifie d type Chest pain, unspecifie d type Disease Active 7- 00:00: 00 [facility] Priapism Priapism Disease Active 2013-06- 00:00: 00 [facility] Allergies, Adverse Reactions, Alerts Allergy Name Allergy Type Status Severity Reaction(s) Onset Date Inactive Date Treating Clinician Comments Source No Known Drug Allergie s DA Active U 4-25 00:00: 00 [facility] No Known Drug Allergie s DA Active U 0 9-16 00:00: 00 [facility] No Known Drug Allergie s DA Active U 3-29 00:00: 00 [facility] No Known Drug Allergie s DA Active U 2019-06 2-16 00:00: 00 [facility] No Known Drug Allergie s DA Active U 2019-06 2-15 00:00: 00 [facility] No Known Drug Allergie s DA Active U 2019-06 00:00: 00 [facility] Trazodon e Propensi ty to adverse reaction s Active Other - See comments 10-06 00:00: 00 [facility] TRAZODON E DRUG INGREDI Active Other-Cmnt 10-06 00:00: 00 [facility] Social History Social Habit Start Date Stop Date Quantity Comments Source History of tobacco use Cigarette Smoker [facility] beverage intake 2023-11-07 00:00:00 2023-11-07 00:00:00 Current drinker of alcohol (finding) [facility] History of Social function 2023-11-07 00:00:00 2023-11-07 00:00:00 [facility] Exposure to SARS-CoV-2 (event) 2022-11-01 00:00:00 2022-11-11 13:57:00 Not sure [facility] Tobacco use and exposure 2022-08-10 00:00:00 2022-08-10 00:00:00 User of smokeless tobacco [facility] Alcohol intake 2022-08-10 00:00:00 2022-08-10 00:00:00 Current drinker of alcohol (finding) [facility] Tobacco Comment 2022-08-10 00:00:00 2022-08-10 00:00:00 1/2 a pack a day [facility] Sex assigned at 1970 00:00:00 1970 00:00:00 [facility] Smoking Status Start Date Stop Date Source Smokes tobacco daily 2022-08-10 00:00:00 [facility] Medications Ordered Medication Name Filled Medication Name Start Date Stop Date Current Medication? Ordering Clinician Indication Dosage Frequency Signature (SIG) Comments Components Source NaCl 0.9% (NS) bolus infusion 1,000 mL 11-11 19:45: 00 11-11 20:23 :00 No 1000mL at 999 mL/hr, 1,000 mL, IV Piggyback, ONCE, 1 dose, On Thu11/11/22 at 1445, STAT [facility] multivitami n tablet 1 tablet 08-12 15:00: 00 Yes 1{tbl} 1 tablet, Oral, DAILY, First dose on Thu08/12/22 at 0900, Until Discontinu ed, Routine [facility] foLIC acid (FOLATE) tablet 1 mg 08-12 15:00: 00 Yes 1mg 1 mg, Oral, DAILY, First dose on Thu08/12/22 at 0900, Until Discontinu ed, Routine [facility] foLIC acid 1 mg tablet 08-12 00:00: 00 09-12 04:59 :00 No [id number] 1mg Take 1 tablet by mouth in the morning for 30 days. [facility] oxazepam (SERAX) capsule 15 mg [...] at 0600, Routine [Order 2 End] [facility] thiamine (VITAMIN B1) tablet 100 mg 08-11 16:15: 00 Yes 100mg 100 mg, Oral, DAILY, First dose on Thu08/11/22 at 1015, Until Discontinu ed, Routine [facility] enoxaparin (LOVENOX) injection 40 mg 08-10 23:00: 00 Yes 40mg 40 mg, Subcutaneo us, DAILY, First dose on Thu08/10/22 at 1700, Until Discontinu ed, Routine [facility] NaCl 0.9% (NS) IV infusion 1,000 mL 08-10 15:00: 00 Yes 1000mL at 125 mL/hr, IV Infusion, CONTINUOUS , Starting on Thu08/10/22 at 0900, Until Discontinu ed, Routine [facility] foLIC acid (FOLATE) 5 mg in NaCl 0.9% (NS) piggyback 08-10 15:00: 00 08-11 16:14 :47 No 5mg IV Piggyback, DAILY, First dose on Thu08/10/22 at 0900, Until Discontinu ed, 50 mL [facility] thiamine (VITAMIN B1) 100 mg in NaCl 0.9% (NS) piggyback 08-10 15:00: 00 08-10 16:08 :00 No 100mg IV Piggyback, DAILY, 1 dose, First dose on Thu08/10/22 at 0900, 50 mL [facility] LORazepam (ATIVAN) injection 2 mg 08-10 14:52: 57 Yes 2mg 2 mg, Slow IV Push, Q4HPRN, Starting on Thu08/10/22 at 0852, Until Discontinu ed, Routine, Seizures, Agitation, Anxiety [facility] Sliding Scale Insulin-Reg ular + Fsbg Testing 08-10 13:30: 00 Yes Subcutaneo us, AC+HS, First dose on Thu08/10/22 at 0730, Until Discontinu ed, Routine [facility] oxazepam (SERAX) capsule 15 mg 08-10 12:08: 05 Yes 15mg 15 mg, Oral, Q4HPRN, Starting on Thu08/10/22 at 0608, Until Discontinu ed, Routine, Only while awake for DBP equal to or greater than 100, HR equal to or greater than 100. [facility] dextrose 10% (D10W) bolus infusion 250 mL [...] glucose is < 80 mg/dL, repeat.
[facility] glucagon (GLUCAGEN DIAGNOSTIC KIT) injection 1 mg 08-10 12:03: 20 Yes 1mg 1 mg, Intramuscu lar, PRN, Starting on Thu08/10/22 at 0603, Until Discontinu ed, JACIEL, Blood Glucose < or = 70 mg/dL and patient is NPO, unable to swallow or has mental changes. [facility] ondansetron (ZOFRAN (PF)) injection 4 mg 08-10 12:02: 53 Yes 4mg 4 mg, Slow IV Push, Q6HPRN, Starting on Thu08/10/22 at 0602, Until Discontinu ed, Routine, Nausea and Vomiting (N/V) [facility] ibuprofen (MOTRIN IB) tablet 200 mg 08-10 12:02: 45 Yes 200mg 200 mg, Oral, Q6HPRN, Starting on Thu08/10/22 at 0602, Until Discontinu ed, Routine, Pain (scale 1-3) [facility] NaCl 0.9% (NS) bolus infusion 1,000 mL 08-10 10:15: 00 08-10 13:00 :00 No 1000mL at 999 mL/hr, 1,000 mL, IV Infusion, ONCE, 1 dose, On Thu08/10/22 at 0415, STAT [facility] LORazepam (ATIVAN) injection 0.5 mg 08-10 09:15: 00 08-10 09:19 :00 No .5mg 0.5 mg, Slow IV Push, ONCE, 1 dose, On Thu08/10/22 at 0315, STAT [facility] LORazepam (ATIVAN) injection 1 mg 08-10 08:00: 00 08-10 07:05 :00 No 1mg 1 mg, Slow IV Push, ONCE NOW, 1 dose, On 08/10/22 at 0200, STAT [facility] thiamine (VITAMIN B1) injection 100 mg 08-10 06:45: 00 08-10 06:52 :00 No 100mg 100 mg, Intravenou s, ONCE, 1 dose, On 08/10/22 at 0045, [facility] 1 mg 08-10 05:15: 00 08-10 05:22 :00 No 1mg 1 mg, Slow IV Push, ONCE, 1 dose, On 08/09/22 at 2315, STAT [facility] ketorolac (TORADOL) injection 15 mg 2021-06 0-16 16:00: 00 04-06 14:50 :00 No 15mg 15 mg, Slow IV Push, ONCE, 1 dose, On 04/06/22 at 1100, [facility] ondansetron (ZOFRAN (PF)) injection 4 mg 2021-06-16 15:45: 00 04-06 14:50 :00 No 4mg 4 mg, Slow IV Push, ONCE, 1 dose, On 04/06/22 at 1045, [facility] oxazepam (SERAX) capsule 15 mg 12-31 06:28: 17 01-01 06:29 :00 No 15mg 15 mg, Oral, Q12H TAPER, 2 doses, First dose on Thu12/31/21 at 0130, Last dose on Thu12/31/21 at 1330, Routine [facility] multivitami n tablet 12-31 00:00: 00 Yes [id number] 1{tbl} Take 1 tablet by mouth in the morning. [facility] thiamine 100 mg tablet 12-31 00:00: 00 Yes [id number] 100mg Take 1 tablet by mouth in the morning. [facility] aspirin 81 mg chewable tablet 12-31 00:00: 00 Yes [id number] 81mg Take 1 tablet by mouth in the morning. [facility] foLIC acid 1 mg tablet 12-31 00:00: 00 01-31 04:59 :00 No [id number] 1mg Take 1 tablet by mouth in the morning for 30 days. [facility] metFORMIN 500 mg tablet 12-30 00:00: 00 Yes [id number] 500mg Take 1 tablet by mouth in the morning and 1 tablet in the evening. Take with meals. [facility] aspirin chewable tablet 81 mg 12-29 14:00: 00 Yes 81mg 81 mg, Oral, DAILY, First dose on Thu12/29/21 at 0900, Until Discontinu ed, Routine [facility] sulfur hexafluorid e microsphr (LUMASON) injection 5 mL 12-29 13:45: 00 12-29 13:45 :00 No [id number] 5mL 5 mL, Intravenou s, ONCE, 1 dose, On 12/29/21 at 0845, Routine
food court team member approving Restricted medication : STEFANIE GORMAN [facility] enoxaparin (LOVENOX) injection 40 mg 12-29 13:00: 00 Yes 40mg 40 mg, Subcutaneo us, Q24H, First dose on Thu12/29/21 at 0800, Until Discontinu ed, Routine [facility] Sliding Scale Insulin - Lispro (HumaLOG) + Fsbg Testing 12-29 13:00: 00 Yes Subcutaneo us, TID MEALS+HS, First dose on Thu12/29/21 at 0800, Until Discontinu ed, Routine [facility] diazePAM (VALIUM) injection 10 mg 12-29 05:30: 00 12-29 04:40 :00 No 10mg 10 mg, Intravenou s, ONCE, 1 dose, On 12/29/21 at 0030, Routine [facility] diazePAM (VALIUM) injection 10 mg 12-29 04:15: 00 12-29 03:17 :00 No 10mg 10 mg, Intravenou s, ONCE, 1 dose, On 12/28/21 at 2315, Routine [facility] diazePAM (VALIUM) injection 5 mg 12-29 03:45: 01 Yes 5mg 5 mg, Intravenou s, QIDPRN, Starting on 12/28/21 at 2245, Until Discontinu ed, Routine, Seizures, Agitation [facility] foLIC acid (FOLATE) tablet 1 mg 12-29 03:45: 00 Yes 1mg 1 mg, Oral, DAILY, First dose on 12/28/21 at 2245, Until Discontinu ed, Routine [facility] thiamine (VITAMIN B1) tablet 100 mg 12-29 03:45: 00 Yes 100mg 100 mg, Oral, DAILY, First dose (after last modificati on) on 12/28/21 at 2245, Until Discontinu ed, Routine [facility] glucagon (GLUCAGEN DIAGNOSTIC KIT) injection 1 mg 12-29 03:42: 19 Yes 1mg 1 mg, Intramuscu lar, PRN, Starting on 12/28/21 at 2242, Until Discontinu ed, JACIEL, Blood Glucose < or = 70 mg/dL and patient is unable to swallow or has mental changes. [facility] dextrose 10% (D10W) bolus infusion [...] glucose is < 80 mg/dL, repeat.
[facility] LORazepam (ATIVAN) injection 1 mg 12-29 03:30: 00 12-29 02:32 :00 No 1mg 1 mg, Intravenou s, ONCE, 1 dose, On 12/28/21 at 2230, Routine
Is the medication being used for status epilepticu s? No [facility] oxazepam (SERAX) capsule 15 mg 12-29 00:28: 20 Yes 15mg 15 mg, Oral, Q4HPRN, Starting on 12/28/21 at 1928, Until Discontinu ed, Routine, Only while awake for DBP equal to or greater than 100, HR equal to or greater than 100. [facility] ondansetron (ZOFRAN (PF)) injection 4 mg 12-29 00:23: 47 Yes 4mg 4 mg, Slow IV Push, Q6HPRN, Starting on 12/28/21 at 1923, Until Discontinu ed, Routine, Nausea and Vomiting (N/V) [facility] acetaminoph en (TYLENOL) tablet 650 mg 12-29 00:23: 37 Yes 650mg 650 mg, Oral, Q6HPRN, Starting on 12/28/21 at 1923, Until Discontinu ed, Routine, Pain (scale 1-3), Temp > 38.5 C [facility] chlordiazeP OXIDE (LIBRIUM) capsule 25 mg 12-28 23:15: 00 12-28 23:24 :00 No 25mg 25 mg, Oral, ONCE, 1 dose, On 12/28/21 at 1815, [facility] NaCl 0.9% (NS) bolus infusion 2,000 mL 12-28 22:45: 00 12-28 23:18 :00 No 2000mL at 999 mL/hr, 2,000 mL, IV Infusion, ONCE, 1 dose, On 12/28/21 at 1745, JACIEL [facility] LORazepam (ATIVAN) injection 1 mg 12-28 20:45: 00 12-28 20:49 :00 No 1mg 1 mg, Slow IV Push, ONCE, 1 dose, On 12/28/21 at 1545, STAT
Is the medication being used for status epilepticu s? No [facility] acetaminoph en (TYLENOL) 500 mg tablet 10-06 00:00: 00 Yes 500mg Take 1 Tab by mouth every 6 (six) hours as needed for Pain. [facility] Vital Signs Vital Name Observation Time Observation Value Comments S ource Systolic blood pressure 2023-12-13 05:16:00 125 mm[Hg] [facility] Diastolic blood pressure 2023-12-13 05:16:00 90 mm[Hg] [facility] Heart rate 2023-12-13 05:16:00 77 /min [facility] Body temperature 2023-12-13 05:16:00 36.06 Theresa [facility] Respiratory rate 2023-12-13 05:16:00 16 /min [facility] Oxygen saturation in Arterial blood by Pulse oximetry 2023-12-13 05:16:00 98 /min [facility] Body height 2023-12-13 01:35:00 157.5 cm [facility] Body weight 2023-12-13 01:35:00 65.772 kg [facility] BMI 2023-12-13 01:35:00 26.52 kg/m2 [facility] Systolic blood pressure 2023-11-05 21:00:00 106 mm[Hg] [facility] Diastolic blood pressure 2023-11-05 21:00:00 70 mm[Hg] [facility] Heart rate 2023-11-05 21:00:00 74 /min [facility] Body temperature 2023-11-05 21:00:00 36.5 [facility] Respiratory rate 2023-11-05 21:00:00 21 /min [facility] Oxygen saturation in Arterial blood by Pulse oximetry 2023-11-05 21:00:00 98 /min [facility] Body height 2023-11-05 19:59:00 160 cm [facility] Body weight 2023-11-05 19:59:00 63.504 kg [facility] BMI 2023-11-05 19:59:00 24.80 kg/m2 [facility] Systolic blood pressure 2022-11-11 20:31:31 116 mm[Hg] [facility] Diastolic blood pressure 2022-11-11 20:31:31 77 mm[Hg] [facility] Heart rate 2022-11-11 20:31:31 84 /min [facility] Respiratory rate 2022-11-11 20:31:31 12 /min [facility] Oxygen saturation in Arterial blood by Pulse oximetry 2022-11-11 20:31:31 90 /min [facility] Body temperature 2022-11-11 18:49:00 37.11 [facility] Body height 2022-11-11 18:49:00 160 cm [facility] Body weight 2022-11-11 18:49:00 68.04 kg [facility] BMI 2022-11-11 18:49:00 26.57 kg/m2 [facility] Body temperature 2022-08-11 14:00:00 36.5 [facility] Systolic blood pressure 2022-08-11 10:00:00 116 mm[Hg] [facility] Diastolic blood pressure 2022-08-11 10:00:00 71 mm[Hg] [facility] Heart rate 2022-08-11 10:00:00 70 /min [facility] Respiratory rate 2022-08-11 10:00:00 16 /min [facility] Body weight 2022-08-11 10:00:00 65.499 kg [facility] BMI 2022-08-11 10:00:00 25.58 kg/m2 [facility] Oxygen saturation in Arterial blood by Pulse oximetry 2022-08-11 10:00:00 100 /min [facility] Body height 2022-08-10 22:12:00 160 cm [facility] Systolic blood pressure 2022-04-06 16:00:00 125 mm[Hg] [facility] Diastolic blood pressure 2022-04-06 16:00:00 75 mm[Hg] [facility] Heart rate 2022-04-06 16:00:00 87 /min [facility] Respiratory rate 2022-04-06 16:00:00 22 /min [facility] Oxygen saturation in Arterial blood by Pulse oximetry 2022-04-06 16:00:00 98 /min [facility] Body temperature 2022-04-06 14:41:00 37 [facility] Body height 2022-04-06 14:41:00 160 cm [facility] Body weight 2022-04-06 14:41:00 63.504 kg [facility] BMI 2022-04-06 14:41:00 24.80 kg/m2 [facility] Systolic blood pressure 2022-01-20 02:27:00 121 mm[Hg] [facility] Diastolic blood pressure 2022-01-20 02:27:00 75 mm[Hg] [facility] Heart rate 2022-01-20 02:27:00 79 /min [facility] Respiratory rate 2022-01-20 02:27:00 12 /min [facility] Oxygen saturation in Arterial blood by Pulse oximetry 2022-01-20 02:27:00 98 /min [facility] Body temperature 2022-01-19 22:19:00 36.44 [facility] Body weight 2022-01-19 22:19:00 60.328 kg [facility] BMI 2022-01-19 22:19:00 23.56 kg/m2 [facility] Systolic blood pressure 2021-12-30 20:52:00 134 mm[Hg] [facility] Diastolic blood pressure 2021-12-30 20:52:00 76 mm[Hg] [facility] Heart rate 2021-12-30 20:52:00 67 /min [facility] Body temperature 2021-12-30 20:26:00 36.67 [facility] Oxygen saturation in Arterial blood by Pulse oximetry 2021-12-30 20:26:00 99 /min [place] [facility] Respiratory rate 2021-12-30 16:21:00 18 /min [facility] Body weight 2021-12-30 08:27:00 60.464 kg [facility] BMI 2021-12-30 08:27:00 23.61 kg/m2 [facility] Body height 2021-12-29 01:29:00 160 cm [facility] Procedures Procedure Date / Time Performed Performing Clinician Source TROPONIN I 2023-12-13 03:32:00 Rafael Byrd [facility] XR CHEST 1 VW 2023-12-13 02:18:14 Rafael Byrd [facility] LIPASE 2023-12-13 02:07:00 Rafael Byrd [facility] TROPONIN I 2023-12-13 02:07:00 Rafael Byrd [facility] COMP. METABOLIC PANEL ([id number]) 2023-12-13 02:07:00 Rafael Byrd [facility] CBC WITH DIFF 2023-12-13 02:07:00 Rafael Byrd [facility] XR CHEST 1 VW 2023-11-05 20:09:00 Sulaiman Hawkins [facility] LIPASE 2023-11-05 20:01:00 Sulaiman Hawkins [facility] MAGNESIUM 2023-11-05 20:01:00 Sulaiman Hawkins [facility] TROPONIN I 2023-11-05 20:01:00 Sulaiman Hawkins [facility] COMP. METABOLIC PANEL ([id number]) 2023-11-05 20:01:00 Sulaiman Hawkins [facility] CBC WITH DIFF 2023-11-05 20:01:00 Sulaiman Hawkins [facility] N-TERMINAL PRO-BNP 2023-11-05 20:01:00 Sulaiman Hawkins [facility] MAGNESIUM 2022-11-11 19:05:00 Jessica [facility] BASIC METABOLIC PANEL (NA, K, CL, CO2, GLUCOSE, BUN, CREATININE, CA) 2022-11-11 19:05[facility]-11 19:05:00 Jessica [facility] CBC WITH DIFF 2022-11-11 19:05:00 Hemant Klein [facility] POCT GLUCOSE (AUTOMATED) 2022-08-11 13:36:00 Arvind Prado [facility] PHOSPHORUS 2022-08-11 10:35:00 Eve [facility] MAGNESIUM 2022-08-11 10:35:00 Eve [facility] AMMONIA, PLASMA 2022-08-11 10:35:00 Jessica Prado [facility] COMP. METABOLIC PANEL ([id number]) 2022-08-11 10:35:00 Eve [facility] CBC WITH DIFF 2022-08-11 10:35:00 Oswald Murphy [facility] POCT GLUCOSE (AUTOMATED) 2022-08-11 02:15:00 Arvind Prado [facility] POCT GLUCOSE (AUTOMATED) 2022-08-10 23:10:00 Arvind Prado [facility] POCT GLUCOSE (AUTOMATED) 2022-08-10 18:20:00 Arvind Prado [facility] POCT GLUCOSE (AUTOMATED) 2022-08-10 14:11:00 Arvind Prado [facility] POCT GLUCOSE (AUTOMATED) 2022-08-10 10:59:00 Gopal Driscoll [facility] COVID-19 (ID NOW RAPID TESTING) 2022-08-10 07:17:00 Rayray Driscoll [facility] LAB ONLY COVID INTERPRETATION 2022-08-10 07:17:00 Rayray Driscoll [facility] HB ECG ROUTINE & RHYTHM STRIP 2022-08-10 06:03:48 Rayray Driscoll [facility] URINALYSIS 2022-08-10 05:46:00 Rayray Driscoll [facility] URINE DRUG (IMMUNOASSAY) - COMPREHENSIVE DRUG SCREEN W/O REFLEX 2022-08-10 05:45:00 Rayray Driscoll [facility] CREATINE KINASE 2022-08-10 05:16:00 [facility] 05:16:00 Rayray Driscoll [facility] MAGNESIUM 2022-08-10 05:16:00 Rayray Driscoll [facility] TROPONIN I 2022-08-10 05:16:00 Rayray Driscoll [facility] COMP. METABOLIC PANEL ([id number]) 2022-08-10 05:16:00 Rayray Driscoll [facility] ETHANOL 2022-08-10 05:16:00 Rayray Driscoll [facility] CBC WITH DIFF 2022-08-10 05:16:00 Rayray Driscoll [facility] N-TERMINAL PRO-BNP 2022-08-10 05:16:00 Rayray Driscoll [facility] CRITICAL CARE 2022-08-10 04:52:00 Rayray Driscoll [facility] XR CHEST 1 VW 2022-04-06 14:51:50 Diya Chowdhury [facility] LIPASE 2022-04-06 14:42:00 Diya Chowdhury [facility] TROPONIN I 2022-04-06 14:42:00 Diya Chowdhury [facility] COMP. METABOLIC PANEL ([id number]) 2022-04-06 14:42:00 Diya Chowdhury [facility] CBC WITH DIFF 2022-04-06 14:42:00 Diya Chowdhury [facility] PROTHROMBIN TIME / INR 2022-04-06 14:42:00 Diya Chowdhury [facility] ACTIVATED PARTIAL THRMPLAS NELDA 2022-04-06 14:42:00 Diya Chowdhury [facility] LACTIC ACID WHOLE BLOOD 2022-01-20 00:22:00 Leticia Baldwin [facility] URINE DRUG (IMMUNOASSAY) - COMPREHENSIVE DRUG SCREEN 2022-01-19 23:10:00 Leticia Baldwin [facility] URINALYSIS 2022-01-19 23:10:00 Leticia Baldwin [facility] TROPONIN I 2022-01-19 23:00:00 Leticia Baldwin [facility] COMP. METABOLIC PANEL ([id number]) 2022-01-19 23:00:00 Leticia Baldwin [facility] LITHIUM 2022-01-19 23:00:00 Leticia Baldwin [facility] ETHANOL 2022-01-19 23:00:00 Leticia Baldwin [facility] CBC WITH DIFF 2022-01-19 23:00:00 Leticia Baldwin [facility] COVID-19 (ID NOW RAPID TESTING) 2022-01-19 23:00:00 Leticia Baldwin [facility] CT HEAD WO CONTRAST 2022-01-19 22:49:00 Leticia Baldwin [facility] XR CHEST 1 VW 2022-01-19 22:41:00 Leticia Baldwin [facility] POCT GLUCOSE (AUTOMATED) 2022-01-19 22:25:00 Leticia Baldwin [facility] POCT GLUCOSE (AUTOMATED) 2021-12-30 21:55:00 Arvind Prado [facility] [facility] POCT GLUCOSE (AUTOMATED) 2021-12-30 16:21:00 Arvind Prado [facility] POCT GLUCOSE (AUTOMATED) 2021-12-30 12:30:00 Arvind Prado [facility] HEPATIC FUNCTION PANEL (65815) (ALB,T.PRO,BILI T,BU/BC,ALT,AST,ALK PHOS) 2021-12-30 09:28:00 Maira Gaitan [facility] POCT GLUCOSE (AUTOMATED) 2021-12-30 02:11:00 Arvind Prado [facility] POCT GLUCOSE (AUTOMATED) 2021-12-29 21:41:00 Arvind Prado [facility] POCT GLUCOSE (AUTOMATED) 2021-12-29 16:37:00 Arvind Prado [facility] TRANSTHORACIC ECHO (TTE) COMPLETE W/ CONTRAST 2021-12-29 13:05:00 Jessica Prado [facility] POCT GLUCOSE (AUTOMATED) 2021-12-29 12:41:00 Arvind Prado [facility] TROPONIN I 2021-12-29 09:42:00 Eve [facility] TROPONIN I 2021-12-29 04:55:00 Eve [facility] CT HEAD WO CONTRAST 2021-12-28 21:18:22 Poppy Renteria [facility] AMMONIA, PLASMA 2021-12-28 21:00:00 Pia Renteria U [facility] COVID-19 (ID NOW RAPID TESTING) 2021-12-28 20:42:00 Pia Renteria [facility] LAB ONLY COVID INTERPRETATION 2021-12-28 20:42:00 Pia Renteria [facility] URINE DRUG (IMMUNOASSAY) - COMPREHENSIVE DRUG SCREEN W/O REFLEX 2021-12-28 20:42:00 Pia Renteria [facility] URINALYSIS 2021-12-28 20:40:00 Pia Renteria [facility] N-TERMINAL PRO-BNP 2021-12-28 20:40:00 Corina Renteria [facility] TROPONIN I 2021-12-28 20:40:00 Pia Renteria [facility] THYROID STIMULATING HORMONE 2021-12-28 20:40:00 Jessica Prado [facility] COMP. METABOLIC PANEL (60534) 2021-12-28 20:40:00 Pia Renteria [facility] LIPID PANEL (03839)(TOTAL CHOLESTEROL, TRIGLYCERIDES, HDL) 2021-12-28 20:40:00 Demetrius Langford [facility] ETHANOL 2021-12-28 20:40:00 Demetrius Langford [facility] CBC WITH DIFF 2021-12-28 20:40:00 Pia Renteria [facility] GLYCOSYLATED HEMOGLOBIN (A1C) 2021-12-28 20:40:00 Jessica Prado [facility] PROTHROMBIN TIME / INR 2021-12-28 20:40:00 Lesly Renteria [facility] XR CHEST 1 VW 2021-12-28 20:16:00 Pia Renteria [facility] HB ECG ROUTINE & RHYTHM STRIP 2021-12-28 20:04:59 Pia Renteria [facility] Encounters Start Date/Time End Date/Time Encounter Type Admission Type Attending [facility] Facility Care Department Encounter ID Source 2021-09-17 16:45:00 Inpatient [facility] [id number] [facility] 2020-06-06 16:07:00 Inpatient [facility] [id number] [facility] 2020-06-06 06:20:00 Inpatient [facility] [id number] [facility] 2020-06-05 19:35:00 Inpatient [facility] [id number] [facility] 2020-05-23 19:53:00 Inpatient [facility] [id number] [facility] 2020-05-23 19:53:00 Inpatient [facility] [id number] [facility] 2023-12-12 20:44:00 2023-12-13 00:22:00 Emergency Rafael Byrd [facility] 1.2.840.114 350.1.13.10 4.2.7.2.686 [id number] [facility] 2023-11-05 14:54:00 2023-11-05 16:27:00 Emergency Sulaiman Hawkins [facility] 1.2.840.114 350.1.13.10 4.2.7.2.686 [id number] [facility] 2022-11-11 13:50:00 2022-11-11 16:07:00 Emergency X HEMANT KLEIN [facility] ERT [id number] [facility] 2022-11-11 13:50:00 2022-11-11 16:07:00 Emergency Hemant Klein [facility] 1.2.840.114 350.1.13.10 4.2.7.2.686 [id number] [facility] 2022-10-14 20:59:00 2022-10-14 20:59:00 Emergency [facility] [id number] [facility] 2022-10-14 20:59:00 2022-10-14 20:59:00 Emergency Emergency Pan Pinto [facility] [id number] [facility] 2022-08-09 22:59:00 2022-08-11 13:02:00 Outpatient X JESSICA PRADO [facility] [id number] [facility] 2022-08-09 22:59:00 2022-08-11 13:02:00 Emergency DriscollMukundRayrayJessica Avilez [facility] 1.2.840.114 350.1.13.10 4.2.7.2.686 [id number] [facility] 2022-04-06 09:38:00 2022-04-06 11:42:00 Emergency X DIYA CHOWDHURY [facility] ERT [id number] [facility] 2022-04-06 09:38:00 2022-04-06 11:42:00 Emergency EnrikegisselleDiya domingo [facility] 1.2.840.114 350.1.13.10 4.2.7.2.686 [id number] [facility] 2022-03-07 12:38:00 2022-03-07 12:38:00 Emergency [facility] [id number] [facility] 2022-03-07 12:38:00 2022-03-07 12:38:00 Emergency Emergency Fidel Cuellar [facility] [id number] [facility] 2022-01-19 17:18:00 2022-01-19 22:00:00 Emergency X DIRK YARBROUGH [facility] ERT [id number] [facility] 2022-01-19 17:18:00 2022-01-19 22:00:00 Emergency NicolasaLeticia vega Julio C [facility] 1.2.840.114 350.1.13.10 4.2.7.2.686 [id number] [facility] 2021-12-31 00:00:00 2021-12-31 00:00:00 Transition of Care Bandar Faye SHEARMarlon MASSIEL NAVARRO 1.2.840.114 350.1.13.10 4.2.7.2.686 [id number] [facility] 2021-12-28 14:53:00 2021-12-30 17:42:00 Inpatient X JESSICA PRADO [facility] [id number] [facility] 2021-12-28 14:53:00 2021-12-30 17:42:00 Hospital Encounter Pia Renteria Jelani [facility] 1.2.840.114 350.1.13.10 4.2.7.2.686 [id number] [facility] 2021-09-17 16:47:00 2021-09-17 16:47:00 Emergency [facility] [id number] [facility] 2020-06-06 16:07:00 2020-06-06 16:07:00 Emergency [facility] [id number] [facility] Results Test Description Test Time Test Comments Results Result Co mments Source [facility] [id number] 02:57:27* Test Item Value Reference Range Interpretation Comme nts TROPONIN I (test code = 4563890141) 0.003 ng/mL <=0.034 JUAN ALBERTO (test code [...] of biotin. Lab Interpretation (test code = 98725-7) Normal [facility]. METABOLIC PANEL (25586)2023-12-13 02:46:25* Test Item Value Reference Range Interpretation Comme nts NA (test code = 4405632999) 144 mmol/L 135-145 K (test code = 2629081978) 3.9 mmol/L 3.5-5.0 CL (test code = 8103204562) 110 mmol/L 98-108 H CO2 TOTAL (test code = 2446006566) 20 mmol/L 23-31 L AGAP (test code = 3982358725) 14 2-16 BUN (test code = 7069400486) 13 mg/dL 7-23 GLUCOSE (test code = 9877218074) 163 mg/dL 70-110 H CREATININE (test code = 2160-0) 0.63 mg/dL 0.60-1.25 TOTAL BILI (test code = 7547071139) 0.3 mg/dL 0.1-1.1 CALCIUM (test code = 1708057367) 9.0 mg/dL 8.6-10.6 T PROTEIN (test code = 5679516663) 7.2 g/dL 6.3-8.2 ALBUMIN (test code = 7233124173) 4.1 g/dL 3.5-5.0 ALK PHOS (test code = 7437652576) 129 U/L 34-122 H ALTv (test code = 1742-6) 15 U/L 5-50 AST(SGOT) (test code = 2473044262) 34 U/L 13-40 eGFR (test code = 01860-5) 113.7 mL/min/1.73m2 CKD-EPI eGFR (2020). Assuming creatinine has been stable day-to-day for at least three months, the eGFR indicates Category G1 (>= 90 mL/min/1.73 m2) Lab Interpretation (test code = 46820-0) [facility] [id number] 02:45:25* Test Item Value Reference Range Interpretation Comme nts LIPASE (test code = 7827034613) 47 U/L 0-220 Lab Interpretation (test cod e = 30545-1) [facility] 1 [id number] 02:40:35History: chest pain . Exam: XR CHEST 1 VW Date: 12/12/2023 9:15 PM Ordering provider: RAFAEL BYRD Technical quality: Adequate Comparison: 11/05/2023. Findings: Frontal view of the chest is obtained. The cardiac silhouette is normal in size. No evidence of infiltrate,pleural effusion, CHF, or pneumothorax.[facility] [id number] 02:33:48* Test Item Value Reference Range Interpretation [...] 33.2 g/dL 31.2-35.0 RDW-SD (test code = 25155-4) 54.4 fL 38.5-51.6 H RDW-CV (test code = 788-0) 15.9 % 12.1-15.4 H PLT (test code = 777-3) 318 150-328 MPV (test code = 28679-2) 8.5 fL 9.8-13.0 L NRBC/100 WBC (test code = 5620846412) 0.0 0.0-10.0 NRBC x10^3 (test code = 3495002568) See_Comment [Automated messa ge] The system which generated this result transmitted reference range: 10*3/?L. The reference range was not used to interpret this result as normal/abnormal. GRAN MAT (NEUT) % (test code = 770-8) 50.1 % IMM GRAN % (test code = 0003559404) 0.40 % LYMPH % (test code = 736-9) 37.6 % MONO % (test code = 5905-5) 6.8 % EOS % (test code = 713-8) 4.1 % BASO % (test code = 706-2) 1.0 % GRAN MAT x10^3(ANC) (test code = 3553710302) 3.66 10*3/uL 1.99-6.95 IMM GRAN x10^3 (test code = 0688060391) 0.03 10*3/uL 0.00-0.06 LYMPH x10^3 (test code = 731-0) 2.75 10*3/uL 1.09-3.23 MONO x10^3 (test code = 742-7) 0.50 10*3/uL 0.36-1.02 EOS x10^3 (test code = 711-2) 0.30 10*3/uL 0.06-0.53 BASO x10^3 (test code = 704-7) 0.07 10*3/uL 0.01-0.09 Lab Interpretation (test code = 58228-6) [facility] [id number] 20:15:30HISTORY: Chest pain. TECHNIQUE: Portable AP view of the chest is obtained. Comparison is beingmade with 04/06/2022 study. FINDINGS: No acute pneumonia. No pneumothorax or pleural effusion orpulmonarycongestion detected. Cardiac size is within normal limits.Prominent osteophytes are seen along right left vertebral margins at middleand lower thoracic spines. CONCLUSIONS: No signs of acute cardiopul monary disease.[facility] 19:45:56 ALCOHOL<10mg/dL11/11/2022 2:45 PM [facility]10 Geesfkvr45-247 Toxic>100 Depression of [employer]ANT>400 [facility] (NA, K, CL, CO2, GLUCOSE, BUN, CREATININE, CA)2022-11-11 19:41:47* Test Item Value Reference Range Interpretation Comme nts NA (test code = 3543008294) 138 mmol/L 135-145 K (test code = 0860268221) 4.8 mmol/L 3.5-5.0 CL (test code = 5579855259) 103 mmol/L 98-108 CO2 TOTAL (test code = 7745046805) 26 mmol/L 23-31 AGAP (test code = 8187786727) 9 2-16 BUN (test code = 3338173867) 17 mg/dL 7-23 GLUCOSE (test code = 3890975230) 219 mg/dL 70-110 H CREATININE (test code = 0023062468) 0.72 mg/dL 0.60-1.25 CALCIUM (test code = 2689895258) 10.0 mg/dL 8.6-10.6 eGFR (test code = 7905803060) 114.6 mL/min/1.73m2 JUAN ALBERTO (test code = [...] imaging tests). Lab Interpretation (test code = 22960-2) [facility] 19:41:47* Test Item Value Reference Range Interpretation Comme nts MAGNESIUM (test code = 2264669996) 1.8 mg/dL 1.7-2.4 Lab Interpretation (test cod e = 98105-0) Normal [facility] WITH [id number] 19:25:26* Test Item Value Reference Range Interpretation Comme nts WBC (test code = 6690-2) 6.82 See_Comment [Automated [employer]] The system which generated this result transmitted reference range: 4.20 - 10.70 10*3/?L. The reference range was not used to interpret this result as normal/abnormal. RBC (test code = 789-8) 4.98 See_Comment [Automated [employer]] The system which generated this result [...] 33.9 g/dL 31.2-35.0 RDW-SD (test code = 43345-4) 46.0 fL 38.5-51.6 RDW-CV (test code = 788-0) 13.5 % 12.1-15.4 PLT (test code = 777-3) 237 See_Comment [Automated [employer]] The system which generated this result transmitted reference range: 150 - 328 10*3/?L. The reference range was not used to interpret this result as normal/abnormal. MPV (test code = 69332-0) 8.9 fL 9.8-13.0 L NRBC/100 WBC (test code = 0861633330) 0.0 See_Comment [Automated me ssage] The system which generated this result transmitted reference range: 0.0 - 10.0 /100 WBCs. The reference range was not used to interpret this result as normal/abnormal. NRBC x10^3 (test code = 8586566483) See_Comment [Automated messa ge] The system which generated this result transmitted reference range: 10*3/?L. The reference range was not used to interpret this result as normal/abnormal. GRAN MAT (NEUT) % (test code = 770-8) 71.2 % IMM GRAN % (test code = 2848985563) 0.30 % LYMPH % (test code = 736-9) 18.2 % MONO % (test code = 5905-5) 8.4 % EOS % (test code = 713-8) 1.0 % BASO % (test code = 706-2) 0.9 % GRAN MAT x10^3(ANC) (test code = 5593908552) 4.86 10*3/uL 1.99-6.95 IMM GRAN x10^3 (test code = 2401770753) 0.00-0.06 LYMPH x10^3 (test code = 731-0) 1.24 10*3/uL 1.09-3.23 MONO x10^3 (test code = 742-7) 0.57 10*3/uL 0.36-1.02 EOS x10^3 (test code = 711-2) 0.07 10*3/uL 0.06-0.53 BASO x10^3 (test code = 704-7) 0.06 10*3/uL 0.01-0.09 Lab Interpretation (test code = 14434-3) [facility]normal [facility], Urinalysis Rflx Cult/[id number] 22:20:00* Test Item Value Reference Range Interpretation Comme nts Color,Urine (test code = UCOL) Yellow Yellow Clarity,Urine (test code = UCLAR) Clear Clear Ph, Urine (test code = UPH) 7.0 5.0-9.0 N Specific [place],Urine (test code = USG) 1.020 1.005-1.030 N [...] code = ULEU) Negative mg/dL Negative Drug Screen,[id number] 22:20:00* Test Item Value Reference Range Interpretation [...] UPROP) Negative Negative Complete Blood Count Auto [id number] 21:21:00* Test Item Value Reference Range Interpretation [...] code = NRBCP) 0 % Comprehensive Metabolic [id number] 21:21:00* Test Item Value Reference Range Interpretation [...] a race coefficient. Additional information canbe found at:[email or web address]_ egfr_summary_flyer 5.pdf ([email or web address]) [Automated message] The system [...] = ALP) 134 U/L 46-116 H Ethanol [id number] 21:21:00* Test Item Value Reference Range Interpretation Comme nts Ethanol (test code = ETOH) < 3 mg/dL The pharmacologi yudy response to blood alcohol levels mayvary from individual to individual. The fatal concentrationhas been reported to be >400mg/dL. POCT GLUCOSE (AUTOMATED)2022-08-11 13:40:35* Test Item Value Reference Range Interpretation Comme nts POCT GLU (test code = 3315513293) 121 mg/dL 70-110 H Lab Interpretation (test cod e = 10745-9) Abnormal [facility] GLUCOSE (AUTOMATED)2022-08-11 02:18:58* Test Item Value Reference Range Interpretation Comme nts POCT GLU (test code = 4945168775) 183 mg/dL 70-110 H Lab Interpretation (test cod e = 69378-3) Abnormal [facility] GLUCOSE (AUTOMATED)2022-08-10 23:16:11* Test Item Value Reference Range Interpretation Comme nts POCT GLU (test code = 5917494428) 176 mg/dL 70-110 H Lab Interpretation (test cod e = 41221-0) Abnormal [facility] GLUCOSE (AUTOMATED)2022-08-10 18:22:51* Test Item Value Reference Range Interpretation Comme nts POCT GLU (test code = 5577183947) 165 mg/dL 70-110 H Lab Interpretation (test cod e = 81543-2) Abnormal [facility] GLUCOSE (AUTOMATED)2022-08-10 14:18:05* Test Item Value Reference Range Interpretation Comme nts POCT GLU (test code = 5786490302) 138 mg/dL 70-110 H Lab Interpretation (test cod e = 82909-3) Abnormal [facility] GLUCOSE (AUTOMATED)2022-08-10 11:01:21* Test Item Value Reference Range Interpretation Comme nts POCT GLU (test code = 8240650239) 143 mg/dL 70-110 H Lab Interpretation (test cod e = 09010-0) Abnormal [facility]OP[facility] [id number] 06:51:18* Test Item Value Reference Range Interpretation Comme nts TROPONIN I (test code = 7270309831) 0.008 ng/mL <=0.034 JUAN ALBERTO (test code [...] of biotin. Lab Interpretation (test code = 26519-4) Normal [facility]MINAL [id number] 06:47:37* Test Item Value Reference Range Interpretation Comme nts NT-proBNP (test code = 1986201944) 37 pg/mL <=125 JUAN ALBERTO (test code = JUAN ALBERTO) Biotin has been reported to cause a negative bias, interpret results relative to patient's use of biotin. Lab Interpretation (test code = 87659-3) Normal [facility]2023-02-19 06:25:52 ALCOHOL<10mg/dL08/10/2022 12:25 AM [facility]<10 Dojeiswu55-608 Toxic>100 Depression of [employer]ANT>400 Fatalities ReportedDoctors [facility] at RenaissanceCOM. METABOLIC PANEL (96582)2022-08-10 06:19:15* Test Item Value Reference Range Interpretation Comme nts NA (test code = 3788386090) 135 mmol/L 135-145 K (test code = 7327866207) 4.3 mmol/L 3.5-5.0 CL (test code = 5859012487) 98 mmol/L 98-108 CO2 TOTAL (test code = 0969367984) 30 mmol/L 23-31 AGAP (test code = 2755434109) 7 2-16 BUN (test code = 3620978538) 11 mg/dL 7-23 GLUCOSE (test code = 9219175748) 153 mg/dL 70-110 H CREATININE (test code = 8477844085) 0.77 mg/dL 0.60-1.25 TOTAL BILI (test code = 0086864579) 0.9 mg/dL 0.1-1.1 CALCIUM (test code = 6160372852) 10.0 mg/dL 8.6-10.6 T PROTEIN (test code = 7920338948) 7.7 g/dL 6.3-8.2 ALBUMIN (test code = 1990329057) 4.6 g/dL 3.5-5.0 ALK PHOS (test code = 9868394806) 92 U/L 34-122 ALTv (test code = 1742-6) 35 U/L 5-50 AST(SGOT) (test code = 3229430571) 42 U/L 13-40 H eGFR (test code = 6284448737) 106.1 mL/min/1.73m2 JUAN ALBERTO (test code = [...] imaging tests). Lab Interpretation (test code = 12333-8) [facility]normal [facility]2023-[facility]-19 06:19:15* Test Item Value Reference Range Interpretation Comme nts MAGNESIUM (test code = 2937385684) 2.2 mg/dL 1.7-2.4 Lab Interpretation (test cod e = 07992-5) Normal [facility]2023-[facility]-19 06:18:55* Test Item Value Reference Range Interpretation Comme nts LIPASE (test code = 0247028514) 18 U/L 0-220 Lab Interpretation (test cod e = 01490-2) Normal [facility] RenaissanceCREATINE [id number] 06:18:55* Test Item Value Reference Range Interpretation Comme nts CK (test code = 3528648399) 174 U/L 33-194 Lab Interpretation (test cod e = 23313-5) Normal [facility]CBC WITH [id number] 06:02:35* Test Item Value Reference Range Interpretation [...] 32.4 g/dL 31.2-35.0 RDW-SD (test code = 15105-4) 50.2 fL 38.5-51.6 RDW-CV (test code = 788-0) 14.3 % 12.1-15.4 PLT (test code = 777-3) 241 See_Comment [Automated messa ge] The system which generated this result transmitted reference range: 150 - 328 10*3/?L. The reference range was not used to interpret this result as normal/abnormal. MPV (test code = 23245-1) 8.6 fL 9.8-13.0 L NRBC/100 WBC (test code = 9608260953) 0.0 See_Comment [Automated me ssage] The system which generated this result transmitted reference range: 0.0 - 10.0 /100 WBCs. The reference range was not used to interpret this result as normal/abnormal. NRBC x10^3 (test code = 1244205031) See_Comment [Automated messa ge] The system which generated this result transmitted reference range: 10*3/?L. The reference range was not used to interpret this result as normal/abnormal. GRAN MAT (NEUT) % (test code = 770-8) 63.9 % IMM GRAN % (test code = 8607905522) 0.50 % LYMPH % (test code = 736-9) 17.6 % MONO % (test code = 5905-5) 16.5 % EOS % (test code = 713-8) 0.7 % BASO % (test code = 706-2) 0.8 % GRAN MAT x10^3(ANC) (test code = 3259837566) 4.79 10*3/uL 1.99-6.95 IMM GRAN x10^3 (test code = 6100707496) 0.04 10*3/uL 0.00-0.06 LYMPH x10^3 (test code = 731-0) 1.32 10*3/uL 1.09-3.23 MONO x10^3 (test code = 742-7) 1.24 10*3/uL 0.36-1.02 H EOS x10^3 (test code = 711-2) 0.05 10*3/uL 0.06-0.53 L BASO x10^3 (test code = 704-7) 0.06 10*3/uL 0.01-0.09 Lab Interpretation (test code = 76867-2) [id number] 15:15:32* Test Item Value Reference Range Interpretation Comments TROPONIN I (test code = 8057035385) 0.007 ng/mL See_Comment [Automated message] The system [...] of biotin. Lab Interpretation (test code = 31269-5) Normal [facility] RenaissanceaPTT2022-10-16 15:08:29* Test Item Value Reference Range Interpretation [...] 30 seconds. Lab Interpretation (test code = 07073-3) Normal [facility] RenaissancePROTHROMBIN TIME / [id number] 15:06:28* Test Item Value Reference Range Interpretation [...] the indications. Lab Interpretation (test code = 87790-4) Normal [facility] RenaissanceCOMP. METABOLIC PANEL (03629)2022-04-06 15:03:31* Test Item Value Reference Range Interpretation Comme [facility] NA (test code = 7554098902) 136 mmol/L 135-145 K (test code = 2394345977) 5.0 mmol/L 3.5-5 CL (test code = 7365991482) 104 mmol/L 98-108 CO2 TOTAL (test code = 8714507133) 21 mmol/L 23-31 L AGAP (test code = 6761886780) 2-16 BUN (test code = 2825764853) 11 mg/dL 7-23 GLUCOSE (test code = 6261855095) 162 mg/dL 70-110 H CREATININE (test code = 7363183628) 0.52 mg/dL 0.6-1.25 L TOTAL BILI (test code = 3849208568) 1.0 mg/dL 0.1-1.1 CALCIUM (test code = 6012556998) 9.3 mg/dL 8.6-10.6 T PROTEIN (test code = 8156691945) 7.4 g/dL 6.3-8.2 ALBUMIN (test code = 6469978880) 4.4 g/dL 3.5-5 ALK PHOS (test code = 2308986488) 134 U/L 34-122 H ALTv (test code = 1742-6) 17 U/L 5-50 AST(SGOT) (test code = 1896102025) 38 U/L 13-40 eGFR (test code = 2617399651) mL/min/1.73m2 JUAN ALBERTO (test code = JUAN [...] imaging tests). Lab Interpretation (test code = 77870-8) [facility]normal [facility]LIP[facility], [id number] 15:03:31* Test Item Value Reference Range Interpretation Comme nts LIPASE (test code = 4525201931) 29 U/L 0-220 Lab Interpretation (test cod e = 92508-0) Normal [facility] RenaissanceCBC WITH [id number] 14:51:49* Test Item Value Reference Range Interpretation Comme nts WBC (test code = 6690-2) See_Comment [Automated [employer]] The system which generated this result transmitted reference range: 4.20 - 10.70 10*3/?L. The reference range was not used to interpret this result as normal/abnormal. RBC (test code = 789-8) See_Comment [Automated [employer] ge] The system which generated this result [...] 34.0 g/dL 31.2-35 RDW-SD (test code = 77771-3) 45.9 fL 38.5-51.6 RDW-CV (test code = 788-0) 13.3 % 12.1-15.4 PLT (test code = 777-3) See_Comment [Automated [employer]] The system which generated this result transmitted reference range: 150 - 328 10*3/?L. The reference range was not used to interpret this result as normal/abnormal. MPV (test code = 99388-4) 8.4 fL 9.8-13 L NRBC/100 WBC (test code = 3807866509) See_Comment [Automated me ssage] The system which generated this result transmitted reference range: 0.0 - 10.0 /100 WBCs. The reference range was not used to interpret this result as normal/abnormal. NRBC x10^3 (test code = 2274272377) See_Comment [Automated messa ge] The system which generated this result transmitted reference range: 10*3/?L. The reference range was not used to interpret this result as normal/abnormal. GRAN MAT (NEUT) % (test code = 770-8) 63.0 % IMM GRAN % (test code = 0488588959) 0.50 % LYMPH % (test code = 736-9) 25.2 % MONO % (test code = 5905-5) 9.8 % EOS % (test code = 713-8) 0.3 % BASO % (test code = 706-2) 1.2 % GRAN MAT x10^3(ANC) (test code = 2486636936) 3.73 10*3/uL 1.99-6.95 IMM GRAN x10^3 (test code = 7432325733) 0.03 10*3/uL 0-0.06 LYMPH x10^3 (test code = 731-0) 1.49 10*3/uL 1.09-3.23 MONO x10^3 (test code = 742-7) 0.58 10*3/uL 0.36-1.02 EOS x10^3 (test code = 711-2) 0.06-0.53 L BASO x10^3 (test code = 704-7) 0.07 10*3/uL 0.01-0.09 Lab Interpretation (test code = 21227-3) [facility] R[facility] Cult/[id number] 13:53:00* Test Item Value Reference Range Interpretation Comme nts Color,Urine (test code = UCOL) Yellow Yellow Clarity,Urine (test code = UCLAR) Cloudy Clear A Ph, Urine (test code = UPH) 7.5 5.0-9.0 N Specific [place],Urine (test code = USG) 1.025 1.005-1.030 N [...] = ULEU) Negative mg/dL Negative UF REFLEXDrug Screen,[id number] 13:53:00* Test Item Value Reference Range Interpretation [...] UPROP) Negative Negative Complete Blood Count Auto [id number] 12:58:00* Test Item Value Reference Range Interpretation [...] = NRBCP) 0 % Coronavirus PCR, COVID19 Zhnzb9683-80-31 12:58:00* Test Item Value Reference Range Interpretation Comme nts Coronavirus PCR, COVID19 Rapid (test code = SARSCOV2) Coronavirus PCR, COVID19 Rapid (test code = VPRFWEP65.1) Reference Range: Negative SARS-CoV-2 PCR Result: (test code = SARS-CoV-2 PCR Result:) Negative by RT-PCR COVID-19 Status: AsymptomaticComprehensive Metabolic Yuujl8684-35-92 12:58:00* Test Item Value Reference Range Interpretation [...] = ALP) 144 U/L 46-116 H Ethanol Ubabk1451-50-05 12:58:00* Test Item Value Reference Range Interpretation Comme nts Ethanol (test code = ETOH) < 3 mg/dL The pharmacologi yudy response to blood alcohol levels mayvary from individual to individual. The fatal concentrationhas been reported to be >400mg/dL. [id number] 01:47:56* Test Item Value Reference Range Interpretation Comme nts [place] (test code = 0579196183) 0.7 mmol/L 0.6-1.2 JUAN ALBERTO (test code = JUAN ALBERTO) Toxic Range: ? Greater than 1.2 mmol/L Lab Interpretation (test code = 94691-9) [facility] [id number] 00:26:53* Test Item Value Reference Range Interpretation Comments TROPONIN I (test code = 9487789725) 0.002 ng/mL See_Comment [Automated message] The system [...] of biotin. Lab Interpretation (test code = 74023-9) [facility] 00:18:52 ALCOHOL<10mg/dL01/19/2022 7:18 PM [facility]10 Qrdpvcjt92-410 Toxic>100 Depression of [employer]>400 Fatalities ReportedDoctors [facility] at RenaissanceCOM. METABOLIC PANEL (99255)2022-01-20 00:16:16* Test Item Value Reference Range Interpretation Comme nts NA (test code = 6714220532) 137 mmol/L 135-145 K (test code = 4665054312) 4.5 mmol/L 3.5-5 CL (test code = 0186808292) 103 mmol/L 98-108 CO2 TOTAL (test code = 8821919476) 26 mmol/L 23-31 AGAP (test code = 1957447269) 2-16 BUN (test code = 9462885099) 10 mg/dL 7-23 GLUCOSE (test code = 6273419874) 121 mg/dL 70-110 H CREATININE (test code = 3696596602) 0.65 mg/dL 0.6-1.25 TOTAL BILI (test code = 0261882801) 0.8 mg/dL 0.1-1.1 CALCIUM (test code = 1375918336) 11.4 mg/dL 8.6-10.6 H T PROTEIN (test code = 7901013676) 7.2 g/dL 6.3-8.2 ALBUMIN (test code = 3178263217) 4.6 g/dL 3.5-5 ALK PHOS (test code = 9078656409) 112 U/L 34-122 ALTv (test code = 1742-6) 19 U/L 5-50 AST(SGOT) (test code = 0122059202) 26 U/L 13-40 eGFR (test code = 8047823640) mL/min/1.73m2 JUAN ALBERTO (test code = JUAN [...] imaging tests). Lab Interpretation (test code = 25124-7) Abnormal [facility] WITH [id number] 23:43:54* Test Item Value Reference Range Interpretation Comme nts WBC (test code = 6690-2) See_Comment [Automated Ultr[employer] ge] The system which generated this result transmitted reference range: 4.20 - 10.70 10*3/?L. The reference range was not used to interpret this result as normal/abnormal. RBC (test code = 789-8) See_Comment [Automated Ultracella ge] The system which generated this result [...] 34.4 g/dL 31.2-35 RDW-SD (test code = 39253-6) 44.0 fL 38.5-51.6 RDW-CV (test code = 788-0) 12.6 % 12.1-15.4 PLT (test code = 777-3) See_Comment [Automated Ultracella ge] The system which generated this result transmitted reference range: 150 - 328 10*3/?L. The reference range was not used to interpret this result as normal/abnormal. MPV (test code = 52585-9) 9.1 fL 9.8-13 L NRBC/100 WBC (test code = 2881682410) See_Comment [Automated [employer] ssage] The system which generated this result transmitted reference range: 0.0 - 10.0 /100 WBCs. The reference range was not used to interpret this result as normal/abnormal. NRBC x10^3 (test code = 0640065359) See_Comment [Automated Ultracella ge] The system which generated this result transmitted reference range: 10*3/?L. The reference range was not used to interpret this result as normal/abnormal. GRAN MAT (NEUT) % (test code = 770-8) 69.8 % IMM GRAN % (test code = 5372588289) 0.40 % LYMPH % (test code = 736-9) 18.0 % MONO % (test code = 5905-5) 10.9 % EOS % (test code = 713-8) 0.1 % BASO % (test code = 706-2) 0.8 % GRAN MAT x10^3(ANC) (test code = 2477465975) 5.58 10*3/uL 1.99-6.95 IMM GRAN x10^3 (test code = 0112631154) 0.03 10*3/uL 0-0.06 LYMPH x10^3 (test code = 731-0) 1.44 10*3/uL 1.09-3.23 MONO x10^3 (test code = 742-7) 0.87 10*3/uL 0.36-1.02 EOS x10^3 (test code = 711-2) 0.06-0.53 L BASO x10^3 (test code = 704-7) 0.06 10*3/uL 0.01-0.09 Lab Interpretation (test code = 13336-2) Abnormal [facility] GLUCOSE (AUTOMATED)2022-01-19 22:27:41* Test Item Value Reference Range Interpretation Comme nts POCT GLU (test code = 2931988369) 123 mg/dL 70-110 H Lab Interpretation (test cod e = 86805-3) Abnormal [facility] GLUCOSE (AUTOMATED)2021-12-30 22:08:16* Test Item Value Reference Range Interpretation Comme nts POCT GLU (test code = 2807662525) 167 mg/dL 70-110 H Lab Interpretation (test cod e = 29391-8) Abnormal [facility] GLUCOSE (AUTOMATED)2021-12-30 16:50:40* Test Item Value Reference Range Interpretation Comme nts POCT GLU (test code = 1770678378) 154 mg/dL 70-110 H Lab Interpretation (test cod e = 63373-5) Abnormal [facility] GLUCOSE (AUTOMATED)2021-12-30 12:38:43* Test Item Value Reference Range Interpretation Comme nts POCT GLU (test code = 6307184076) 164 mg/dL 70-110 H Lab Interpretation (test cod e = 74955-7) Abnormal [facility] GLUCOSE (AUTOMATED)2021-12-30 02:14:58* Test Item Value Reference Range Interpretation Comme nts POCT GLU (test code = 1780727097) 220 mg/dL 70-110 H Lab Interpretation (test cod e = 90672-3) Abnormal [facility] GLUCOSE (AUTOMATED)2021-12-29 21:50:02* Test Item Value Reference Range Interpretation Comme nts POCT GLU (test code = 1311410850) 191 mg/dL 70-110 H Lab Interpretation (test cod e = 71604-3) Abnormal [facility] GLUCOSE (AUTOMATED)2021-12-29 20:15:01* Test Item Value Reference Range Interpretation Comme nts POCT GLU (test code = 1956284758) 163 mg/dL 70-110 H Lab Interpretation (test cod e = 58329-8) [facility]normal [facility]an[facility]hor[facility] (TTE)2021-12-29 19:12:22* Test Item Value Reference Range Interpretation Comme nts Height (test code = 3171064512) in Weight (test code = 2239429509) lbs Systolic BP (test code = 3858423390) mmHg Diastolic BP (test code = 9872307961) mmHg Heart Rate (test code = 1655629653) bpm BSA (test code = 2176754418) 1.62 m2 Ao root annulus (test code = 0805901317) 2.45 cm Ao root diam (test code = 5364524811) 2.45 cm Aortic root (test code = 9584325544) 2.45 cm ACS (test code = 6708446195) 1.66 cm LA size (test code = 0322716423) 3.2 cm LVOT diameter (test code = 7888941098) 1.95 cm LVIDD (test code = 2025779688) 3.60 cm IVS (test code = 8553011266) 0.94 cm Interventricular Septum Diastolic Thickness by 2D (test code = 3260095) 0.94 cm LVPWD (test code = 6369686175) 0.80 cm PW (test code = 8650913495) 0.80 cm 0.6-1.1 EF(Teich) (test code = 4455534110) 52.80 % LVIDS (test code = 9439639008) 2.60 cm FS (test code = 1217527002) 27 % EF - 2D (test code = 36033872) 52.80 % LAV(MOD-sp4) (test code = 8206763762) 16.80 mL MV Peak E Jovany (test code = 1297527092) 46.1 cm/s E wave decelartion time (test code = 1131554465) 0.31 s MV Peak A Jovany (test code = 6527302300) 58.1 cm/s E/A ratio (test code = 1974226009) ratio MV E/e' septal (test code = 5829199189) 5.7 cm/s Tapse (test code = 5519361388) 1.60 cm LVOT stroke volume (test code = 0673004016) 52.10 cm3 LVOT peak jovany (test code = 6887123449) 110.6 cm/s LVOT mn grad (test code = 7171805472) mmHg AV LVOT peak gradient (test code = 0451601862) mmHg LVOT peak VTI (test code = 5886125978) 17.4 cm LV V1 mean (test code = 7836056335) 66.10 cm/s Aortic valve mean velocity (test code = 7602023723) 73.0 cm/s Ao peak jovany (test code = 1552744648) 124.6 cm/s Ao VTI (test code = 4447578092) 18.6 cm AV area by cont VTI (test code = 1109377151) 2.8 cm2 AV area peak jovany (test code = 8446812251) 2.7 cm2 Ao max PG (test code = 9195737665) 6.20 mm[Hg] AV peak gradient (test code = 4239524967) mmHg AV valve area (test code = 1738074126) 2.80 cm2 AV mean gradient (test code = 9931166274) mmHg Radiology Study observation (narrative) (test code = 41090-9) JUAN ALBERTO (test code = JUAN ALBERTO) [...] mL of Lumason ultrasound enhancing agent used. [facility]ATED)2021-12-29 12:50:31* Test Item Value Reference Range Interpretation Comme nts POCT GLU (test code = 5679926487) 141 mg/dL 70-110 H Lab Interpretation (test cod e = 47093-0) Abnormal [facility] RenaissanceTroponin F6632-20-07 10:38:31* Test Item Value Reference Range Interpretation Comments TROPONIN I (test code = 1436206992) 0.003 ng/mL See_Comment [Automated message] The system [...] of biotin. Lab Interpretation (test code = 90304-7) Normal [facility] RenaissanceLIPID PANEL (26377)(TOTAL CHOLESTEROL, TRIGLYCERIDES, HDL)2021-12-29 05:56:47* Test Item Value Reference Range Interpretation Comme nts CHOL (test code = 0259474799) 168 mg/dL 120-200 HDL (test code = 4567453732) 102 mg/dL See_Comment [[employer]] The system which generated this result transmitted reference range: >=40. The reference range was not used to interpret this result as normal/abnormal. HDLC RATIO (test code = 1479648391) See_Comment [Automated [employer]] The system which generated this result transmitted reference range: <=5.0. The reference range was not used to interpret this result as normal/abnormal. TRIG (test code = 8624460639) 55 mg/dL 30-170 LDL CHOL (test code = 89449-0) 55 mg/dL See_Comment [[employer]] The system which generated this result transmitted reference range: <=160. The reference range was not used to interpret this result as normal/abnormal. VLDL (test code = 9102770915) 11 mg/dL 5-60 Lab Interpretation (test code = 53758-7) Normal [facility] RenaissanceThyroid Stimulating Hormone (TSH)2021-12-29 05:40:29* Test Item Value Reference Range Interpretation Comme nts TSH (test code = 7586313599) See_Comment Biotin has been reported to cause a negative bias, interpret results relative to patient's use of biotin. [Automated message] The system which generated this result transmitted reference range: 0.45 - 4.70 mIU/L. The reference range was not used to interpret this result as normal/abnormal. Lab Interpretation (test code = 43236-3) Normal [facility] [id number] 05:34:29* Test Item Value Reference Range Interpretation Comments TROPONIN I (test code = 9793565870) 0.006 ng/mL See_Comment [Automated message] The system [...] of biotin. Lab Interpretation (test code = 67884-4) Normal [facility]OL2022-[facility]-10 04:43:01 ALCOHOL<10mg/dL12/28/2021 11:43 PM [facility] Greater than or equal to 80 mg/dL. NOTE: Whole blood values are approximately 10% to 15% lower than serum and plasma.[facility] Glycosylated Hemoglobin (A1C)2021-12-29 01:51:44* Test Item Value Reference Range Interpretation Comme nts HGB A1C (test code = 4548-4) 6.5 % 4-5.7 H JUAN ALBERTO (test code = JUAN ALBERTO) Reference RangesNormal: <5.7%Prediabetes: 5.7 - 6.4%Diabetes: > 6.5% Lab Interpretation (test code = 15772-0) [facility]normal [facility] [id number] 21:26:50* Test Item Value Reference Range Interpretation Comments TROPONIN I (test code = 5876987750) 0.002 ng/mL See_Comment [Automated message] The system [...] of biotin. Lab Interpretation (test code = 87412-9) Normal [facility] RenaissanceN-TERMINAL CBW-[id number] 21:23:29* Test Item Value Reference Range Interpretation Comme nts NT-proBNP (test code = 3667353817) 41 pg/mL See_Comment [Automated message] The system which generated this result transmitted reference range: <=125. The reference range was not used to interpret this result as normal/abnormal. JUAN ALBERTO (test code = JUAN ALBERTO) Biotin has been reported to cause a negative bias, interpret results relative to patient's use of biotin. Lab Interpretation (test code = 52688-5) Normal [facility] RenaissanceAMMONIA, [id number] 21:20:38* Test Item Value Reference Range Interpretation Comme nts AMMONIA (test code = 7216959316) 9-33 L Slight hemolysis Lab Interpretation (test code = 74684-2) Abnormal [facility] RenaissanceCOMP. METABOLIC PANEL (79850)2021-12-28 21:08:48* Test Item Value Reference Range Interpretation Comme nts NA (test code = 9470982977) 137 mmol/L 135-145 K (test code = 2532730101) 4.5 mmol/L 3.5-5 CL (test code = 2809808363) 97 mmol/L 98-108 L CO2 TOTAL (test code = 2576656176) 29 mmol/L 23-31 AGAP (test code = 6364355220) 2-16 BUN (test code = 0150762435) 10 mg/dL 7-23 GLUCOSE (test code = 4019180075) 188 mg/dL 70-110 H CREATININE (test code = 9513809021) 0.58 mg/dL 0.6-1.25 L TOTAL BILI (test code = 8952252188) 0.8 mg/dL 0.1-1.1 CALCIUM (test code = 2461675173) 10.5 mg/dL 8.6-10.6 T PROTEIN (test code = 5821907609) 7.6 g/dL 6.3-8.2 ALBUMIN (test code = 5979823656) 4.5 g/dL 3.5-5 ALK PHOS (test code = 1865281408) 107 U/L 34-122 ALTv (test code = 1742-6) 66 U/L 5-50 H AST(SGOT) (test code = 0024342230) 96 U/L 13-40 H eGFR (test code = 4782752740) mL/min/1.73m2 JUAN ALBERTO (test code = JUAN [...] imaging tests). Lab Interpretation (test code = 79764-0) Abnormal [facility] RenaissancePROTHROMBIN TIME / [id number] 21:01:25* Test Item Value Reference Range Interpretation Comme nts PROTIME PATIENT (test code = 5964-2) See_Comment [Automated Ultracella ge] The system which generated this result transmitted reference range: 12.0 - 14.7 Seconds. The reference range was not used to interpret this result as normal/abnormal. INR (test code = 6301-6) Normal INR <1.1; Warfarin Therapeutic range 2.0 to 3.0 or 2.5 to 3.5, depending upon the indications. Lab Interpretation (test code = 94315-1) Normal [facility] RenaissanceCBC WITH [id number] 20:54:03* Test Item Value Reference Range Interpretation Comme nts WBC (test code = 6690-2) See_Comment [Automated Ultracella [employer]] The system which generated this result transmitted reference range: 4.20 - 10.70 10*3/?L. The reference range was not used to interpret this result as normal/abnormal. RBC (test code = 789-8) See_Comment [Automated Ultracella ge] The system which generated this result [...] 34.2 g/dL 31.2-35 RDW-SD (test code = 18311-6) 47.8 fL 38.5-51.6 RDW-CV (test code = 788-0) 13.3 % 12.1-15.4 PLT (test code = 777-3) See_Comment [Automated Ultracella ge] The system which generated this result transmitted reference range: 150 - 328 10*3/?L. The reference range was not used to interpret this result as normal/abnormal. MPV (test code = 17377-3) 8.6 fL 9.8-13 L NRBC/100 WBC (test code = 0875331569) See_Comment [Automated me ssage] The system which generated this result transmitted reference range: 0.0 - 10.0 /100 WBCs. The reference range was not used to interpret this result as normal/abnormal. NRBC x10^3 (test code = 2930449467) See_Comment [Automated messa ge] The system which generated this result transmitted reference range: 10*3/?L. The reference range was not used to interpret this result as normal/abnormal. GRAN MAT (NEUT) % (test code = 770-8) 64.1 % IMM GRAN % (test code = 5586302572) 0.40 % LYMPH % (test code = 736-9) 16.6 % MONO % (test code = 5905-5) 17.2 % EOS % (test code = 713-8) 0.2 % BASO % (test code = 706-2) 1.5 % GRAN MAT x10^3(ANC) (test code = 9739024170) 3.47 10*3/uL 1.99-6.95 IMM GRAN x10^3 (test code = 9280205575) 0-0.06 LYMPH x10^3 (test code = 731-0) 0.90 10*3/uL 1.09-3.23 L MONO x10^3 (test code = 742-7) 0.93 10*3/uL 0.36-1.02 EOS x10^3 (test code = 711-2) 0.06-0.53 L BASO x10^3 (test code = 704-7) 0.08 10*3/uL 0.01-0.09 Lab Interpretation (test code = 14654-4) [facility]normal [facility] RenaissanceEthanol Kekaa9678-90-36 21:08:00* Test Item Value Reference Range Interpretation Comme nts Ethanol (test code = ETOH) < 3 mg/dL The pharmacologi yudy response to blood alcohol levels mayvary from individual to individual. The fatal concentrationhas been reported to be >400mg/dL. Complete Blood Count Auto Memg4966-72-84 17:33:00* Test Item Value Reference Range Interpretation [...] = NRBCP) 0 % UA, Urinalysis Rflx Cult/Oqmcl3924-08-21 17:33:00* Test Item Value Reference Range Interpretation Comme nts Color,Urine (test code = UCOL) Dark Yellow Yellow A Clarity,Urine (test code = UCLAR) Clear Clear Ph, Urine (test code = UPH) 6.5 5.0-9.0 N Specific [place],Urine (test code = USG) 1.015 1.005-1.030 N [...] = ULEU) Trace mg/dL Negative A Urine Nxijyywblwf4659-63-55 17:33:00* Test Item Value Reference Range Interpretation Comme nts RBC,Urine (test code = URBCUF) None Seen /HPF 0-2 WBC,Urine (test code = UWBCUF) 0-5 /HPF 0-5 Epithelial Cell,Urine (test code = UECUF) 0-5 /HPF 0-5 Casts,Urine (test code = UCASTUF) None Seen /LPF None Seen Bacteria,Urine (test code = UBACTUF) None Seen /hpf None Seen Drug Screen,[id number] 17:33:00* Test Item Value Reference Range Interpretation [...] code = UPROP) Negative Negative Comprehensive Metabolic Iiapz5565-51-81 17:33:00* Test Item Value Reference Range Interpretation [...] 101 U/L 46-116 N Sars-CoV-2/FLU A/B RSV [id number] 17:31:00* Test Item Value Reference Range Interpretation [...] SARS-CoV-2 PCR Result:) Negative by RT-PCR Drug Screen,Hyahd6315-08-88 17:20:00* Test Item Value Reference Range Interpretation [...] UPROP) Negative Negative Complete Blood Count Auto Agvt9409-70-14 17:14:00* Test Item Value Reference Range Interpretation [...] code = NRBCP) 0 % Comprehensive Metabolic Emidn4993-43-97 17:14:00* Test Item Value Reference Range Interpretation [...] = ALP) 207 U/L 46-116 H Ethanol Zuwga2528-72-42 17:14:00* Test Item Value Reference Range Interpretation Comme nts Ethanol (test code = ETOH) 192 mg/dL Complete Blood Count Auto Zxpq0112-73-35 20:20:00* Test Item Value Reference Range Interpretation [...] code = NRBCP) 0 % Comprehensive Metabolic Wjjwv0859-82-62 20:20:00* Test Item Value Reference Range Interpretation [...] = ALP) 189 U/L 46-116 H Ethanol Apkqb2519-22-93 20:20:00* Test Item Value Reference Range Interpretation Comme nts Ethanol (test code = ETOH) 10 mg/dL Sars-CoV-2/FLU A/B RSV [id number] 20:20:00* Test Item Value Reference Range Interpretation [...] Negative by Nucleic Acid Amplification UA, Urinalysis Yohxarapshz3817-13-79 20:20:00* Test Item Value Reference Range Interpretation Comme nts Color,Urine (test code = UCOL) Yellow Y Clarity,Urine (test code = UCLAR) Clear Clear PH,Urine (test code = UPH.XX) 7.0 5.5-8.5 Specific [place],Urine (test code = USG) 1.020 1.005-1.030 N [...] code = ULEU) Negative cells/uL Negative Drug Screen,Satij2922-91-04 20:20:00* Test Item Value Reference Range Interpretation [...] code = UTHCS) Negative RESULT TO FO [facility] CT head/brain wo [facility] [address] [place] [address] Patient Name: Walt Velazquez Medical Record#: [id number] Address: Homeless City/State/Zip: [place] [address]: Vinnie Navarro MD Insurance:Self Pay /Age/Sex: 1970/50/M Admit/Reg Date: 09/17/[address]: Vinnie Navarro MD Location: [facility]/ PCP: PcpMd KERWIN Jimenez Date of Service: 09/17/21 Order (s): CT head/brain wo con CPT Code: 39986 Report Number: [id number] Reason for Exam: Altered mental status Location [...] ES135 cc: PCPNO; THELA* Vinnie Navarro MD; Pcp-None,Md SURESH Notes Date/Time [...] steady gait, in no apparent distress, T [facility] [employer] 2023-12-12 22:20:05 Pt removed all monitoring equipment T [facility] [employer] 2023-12-12 20:33:23 Pt brought in by [place] [facility] for medical clearance. [facility] check pt out on scene but after pt complained of chest pain. [place] [facility] brought pt in for clearance for county. Zeina Albrecht RN [facility] 2023-11-05 16:26:20 Pt discharged with diagnosis of CP. Printed and verbal instructions reviewed with and given to pt. Prescriptions given x 0. Pt verbalized understanding of teaching and recommended follow-up. Denies questions or concerns at this time. Pt ambulatory to holding room to await transportation at discharge. Appears in no apparent distress. No ataxia noted. [facility] Renae Saldivar RN [facility] 2023-11-05 14:56:10 Walt Festus Velazquez Sr. is a 52 year old male arrive via [facility] c/o " throbbing ball in chest" since 0600 has been constant, pt immediately asks for food, T Emani Gomez RN [facility]
--- NOTE | 2024-02-11 16:53 | ER ---
Nurse's Notes [facility] Name: Walt Velazquez Age: 53 yrs Sex: Male : 1970 Arrival Date: 02/11/2024 Time: 16:32 Bed 13 Private MD: Diagnosis: Homelessness Presentation: 02/10 16:59 Chief complaint: EMS states: difficulty moving. Coronavirus screen: At this time, the kj2 client does not indicate any symptoms associated with coronavirus-19. Ebola Screen: No symptoms or risks identified at this time. Initial Sepsis Screen: Does the patient meet any 2 criteria? No. Patient's initial sepsis screen is negative. Does the patient have a suspected source of infection? No. Patient's initial sepsis screen is negative. Risk Assessment: Do you want to hurt yourself or someone else? Patient reports no desire to harm self or others. Onset of symptoms was February 11, 2024. 16:59 Method Of Arrival: EMS: [facility] 16:59 Acuity: LATASHA 3 kj2 Triage Assessment: 17:30 General: Appears in no apparent distress. Behavior is cooperative. kj2 Historical: - Allergies: 16:55 Trazodone; kj2 - PMHx: 16:55 Hypertensive disorder; Seizure; kj2 - Immunization history:: Adult Immunizations unknown. - Infectious Disease History:: Denies. - Social history:: Smoking status: . Screenin:53 [facility] ED Fall Risk Assessment (Adult) History of falling in the last 3 months, kj2 including since admission No falls in past 3 months (0 pts) Confusion or Disorientation No (0 pts) Intoxicated or Sedated Yes (3 pts) Impaired Gait No (0 pts) Mobility Assist Device Used No (0 pt) Altered Elimination No (0 pt) Score/Fall Risk Level 0 - 2 = Low Risk. Abuse screen: Denies threats or abuse. Denies injuries from another. Nutritional screening: No deficits noted. Tuberculosis screening: No symptoms or risk factors identified. Assessment: 16:47 General: Appears in no apparent distress. Behavior is cooperative, Smells of alcohol. kj2 Pain: Denies pain. Neuro: Level of Consciousness is awake, alert, obeys commands, Oriented to person, place. Cardiovascular: Patient's skin is warm and dry. Respiratory: Airway is patent Respiratory effort is unlabored. Vital Signs: 16:48 BP 90 / 59; Pulse 73; Resp 18; Temp 98.7; Pulse Ox 95% on R/A; kj2 17:25 BP 97 / 67; Pulse 78; Resp 20; Temp 98.1; Pulse Ox 100% on R/A; kj2 ED Course: 16:38 Patient arrived in ED. sb4 16:38 Chiquita Noonan PA-C [facility]. sb4 16:38 Kaleb Groves MD is Attending Physician. sb4 16:47 Nely Marroquin, RN is Primary Nurse. kj2 17:00 Triage completed. kj2 17:00 Patient has correct armband on for positive identification. Bed in low position. Call kj2 light in reach. Provided Education on: call light, fall precautions. 17:23 Arm band placed on. kj2 17:23 No provider procedures requiring assistance completed. Patient did not have IV access kj2 during this emergency room visit. Administered Medications: 16:58 Not Given (Pt left prior to getting meds.): [id number] mg PO once cm10 17:22 Drug: Ibuprofen PO 600 mg PO once Route: PO; kj2 17:22 Follow up: Response: No adverse reaction; Medication administered at discharge. kj2 Medication: 16:54 VIS not applicable for this client. kj2 Outcome: 16:52 Discharge ordered by . sb4 17:23 Discharged to home ambulatory, kj2 17:23 Condition: stable 17:23 Discharge instructions given to patient, Instructed on discharge instructions, Demonstrated understanding of 17:31 Patient left the ED. kj2 Signatures: Chiquita Noonan PA-C PA-C sb4 Nely Marroquin RN RN kj2 Michelle Mortensen RN cm10
--- NOTE | 2024-02-11 16:53 | EDPHYS ---
Physician Documentation [facility] Name: Walt Velazquez Age: 53 yrs Sex: Male : 1970 Arrival Date: 02/11/2024 Time: 16:32 Bed 13 Private MD: ED Physician Kaleb Groves HPI: 02/10 18:34 This 53 yrs old Male presents to ER via EMS with complaints of pain, hunger. sb4 18:34 patient presents with pain all over, requesting food. has been seen here several times sb4 the past week for similar complaints. is noted disheveled and intoxicated. Historical: - Allergies: 16:55 Trazodone; kj2 - PMHx: 16:55 Hypertensive disorder; Seizure; kj2 - Immunization history:: Adult Immunizations unknown. - Infectious Disease History:: Denies. - Social history:: Smoking status: . ROS: 18:34 Constitutional: Negative for fever, chills, and weight loss, sb4 18:34 All other systems are negative, Exam: 18:34 Head/Face: Normocephalic, atraumatic. Eyes: Extra-ocular motions intact. Periorbital sb4 areas with no swelling, redness, or edema. Skin: Warm, dry with normal turgor. Normal color with no rashes, no lesions, and no evidence of cellulitis. MS/ Extremity: Pulses equal, no cyanosis. Neurovascular intact. Full, normal range of motion. Neuro: Awake and alert, GCS 15, oriented to person, place, time, and situation. Motor strength 5/5 in all extremities. Sensory grossly intact. 18:34 Constitutional: The patient appears alert, awake, unkempt, Vital Signs: 16:48 BP 90 / 59; Pulse 73; Resp 18; Temp 98.7; Pulse Ox 95% on R/A; kj2 17:25 BP 97 / 67; Pulse 78; Resp 20; Temp 98.1; Pulse Ox 100% on R/A; kj2 MDM: 16:38 Patient medically screened. sb4 18:35 Data reviewed: vital signs, nurses notes, EMS record, and as a result, I will discharge sb4 patient. Counseling: I had a detailed discussion with the patient and/or guardian regarding the historical points, exam findings, and any diagnostic results supporting the discharge/admit diagnosis, the need for outpatient follow up, for definitive care, to return to the emergency department if symptoms worsen or persist or if there are any questions or concerns that arise at home. Administered Medications: 16:58 Not Given (Pt left prior to getting meds.): [id number] mg PO once cm10 17:22 Drug: Ibuprofen PO 600 mg PO once Route: PO; kj2 17:22 Follow up: Response: No adverse reaction; Medication administered at discharge. kj2 Disposition Summary: 02/11/24 16:52 Discharge Ordered Notes: Location: Home sb4 Problem: an ongoing problem sb4 Symptoms: have improved sb4 Condition: Stable sb4 Diagnosis - Homelessness sb4 Followup: sb4 - With: Emergency Department - When: As needed - Reason: Trouble breathing, Worsening of condition Discharge Instructions: - Discharge Summary Sheet sb4 Forms: - Patient Portal Instructions sb4 - Leadership Thank You Letter sb4 Addendum: 02/15/2024 16:07 I was immediately available for consultation during this patient's visit. I did not e c2 personally see the patient or discuss the patient with the JORGE. . Signatures: Chiquita Noonan PA-C PAMercedesC sb4 Kaleb Groves MD MD ec2 Nely Marroquin RN RN kj2 Michelle Mortensen RN cm10
[2024-02-11] MEDS ORDERED: IBUPROFEN 200 MG TAB PO ONE (17:13)
[2024-02-11 17:43] VITALS: BP 97/67; TEMP 98.1; O2SAT 100
--- NOTE | 2024-02-12 13:38 | EKG ---
Test Date: 2024-02-06 Test Time: 21:17:54 Order Entry Clerk: DAMIAN MEASUREMENT RESULTS: Intervals: Rate: 98 OK: 176 QRSD: 88 QT: 336 QTc: 428 [place]: P: 53 OK: 176 QRS: 49 T: 22 INTERPRETIVE STATEMENTS: Normal sinus rhythm Normal ECG Compared to ECG 12/04/2023 18:59:18 Sinus tachycardia no longer present T-wave abnormality no longer present Possible ischemia no longer present Electronically Signed On 02-12-24 13:30:52 CDT by Moi Edmond
== END 2024-02-11 17:31 | disposition home or self-care (01) ==
LOC: ER 16:32
DX: R52 Pain, unspecified (principal); Z59.00 Homelessness unspecified
CPT/HCPCS: 93005; 99283

== ENCOUNTER 2024-02-12 11:32 | Emergency (ER) | payer SELFPAY ==
--- OUTSIDE RECORDS SUMMARY | 2024-02-12 11:38 | XMS REPORT | Continuity of Care Document ---
Author Name Unknown Address [address] [facility] [address] [place] [address] [facility] Address [address] [facility] [address] [place] [address] Care Team Providers Care Feeder Catcher Name Role Phone Pcp-None Primary Care Physician Unavailab Rafael Thomas MD Attending Clinician [phone] Sulaiman Hawkins DO Attending Clinician [phone] HEMANT KLEIN Attending Clinician Unavailable Hemant Klein MD Attending Clinician [phone] [place] Attending Clinician Unavailab JESSICA Gallardo Attending Clinician Unavailable Rayray Driscoll MD Attending Clinician +[phone] Jessica Prado MD Attending Clinician +[phone] Oswald Murphy MD Attending Clinician [phone] DIYA CHOWDHURY Attending Clinician Unavailab Diya Mackey DO Attending Clinician [phone] Fidel Cuellar Attending Clinician Unavailable DIRK YARBROUGH Attending Clinician Unavailable Leticia Rowland Attending Clinician [phone] Dirk Yarbrough MD Attending Clinician [phone] Faye Portillo LVN Attending Clinician [phone] Pia Reddy Attending Clinician [phone] Vinnie Navarro Attending Clinician Unavailable OSWALD MURPHY Admitting Clinician Unavailable Oswald Murphy MD Admitting Clinician [phone] DIYA CHOWDHURY Admitting Clinician UnavailLeticia Gaytan Admitting Clinician Unavailable JESSICA PRADO Admitting Clinician Unavailable Jessica Prado MD Admitting Clinician [phone] Payers Payer Name Policy Type Policy Number Effective Date Expirati on Date Source Problems Condition Name Condition Details Condition Category Status Onset Date Resolution Date Last Treatment Date Treating Clinician Comments Source Alcohol withdrawal syndrome with complicati on Alcohol withdrawal syndrome with complicati on Disease Active 2-19 00:00: 00 [facility] Type 2 diabetes mellitus with other specified complicati on Type 2 diabetes mellitus with other specified complicati on Disease Active - 00:00: 00 [facility] Dyslipidem ia Dyslipidem ia Disease Active 12-29 00:00: 00 [facility] Chest pain, unspecifie d type Chest pain, unspecifie d type Disease Active 7- 00:00: 00 [facility] Priapism Priapism Disease Active 2013-06- 00:00: 00 [facility] Allergies, Adverse Reactions, Alerts Allergy Name Allergy Type Status Severity Reaction(s) Onset Date Inactive Date Treating Clinician Comments Source No Known Drug Allergie s DA Active U 4-25 00:00: 00 [facility] No Known Drug Allergie s DA Active U 0 9-16 00:00: 00 [facility] No Known Drug Allergie s DA Active U 3-29 00:00: 00 [facility] No Known Drug Allergie s DA Active U 2019-06 2-16 00:00: 00 [facility] No Known Drug Allergie s DA Active U 2019-06 2-15 00:00: 00 [facility] No Known Drug Allergie s DA Active U 2019-06 00:00: 00 [facility] Trazodon e Propensi ty to adverse reaction s Active Other - See comments 10-06 00:00: 00 [facility] TRAZODON E DRUG INGREDI Active Other-Cmnt 10-06 00:00: 00 [facility] Social History Social Habit Start Date Stop Date Quantity Comments Source History of tobacco use Cigarette Smoker [facility] Alcoholic beverage intake 2023-11-07 00:00:00 2023-11-07 00:00:00 Current drinker of alcohol (finding) [facility] History of Social function 2023-11-07 00:00:00 2023-11-07 00:00:00 [facility] Exposure to SARS-CoV-2 (event) 2022-11-01 00:00:00 2022-11-11 13:57:[address] [facility] Tobacco use and exposure 2022-08-10 00:00:00 2022-08-10 00:00:00 User [address] tobacco [facility] Alcohol intake 2022-08-10 00:00:00 2022-08-10 00:00:00 Current drinker of alcohol (finding) [facility] Tobacco Comment 2022-08-10 00:00:00 2022-08-10 00:00:00 1/[address] [facility] Sex assigned at 1970 00:00:00 1970 00:00:00 [facility] Smoking Status Start Date Stop Date Source Smokes tobacco daily 2022-08-10 00:00:00 [facility] Medications Ordered Medication Name Filled Medication Name Start Date Stop Date Current Medication? Ordering Clinician Indication Dosage Frequency Signature (SIG) Comments Components Source NaCl 0.9% (NS) bolus infusion 1,000 mL 11-11 19:45: 00 11-11 20:23 :00 No 1000mL at 999 mL/hr, 1,000 mL, IV Piggyback, ONCE, 1 dose, On Thu11/11/22 at 1445, STAT [facility] multivitami n tablet 1 tablet 08-12 15:00: 00 Yes 1{tbl} 1 tablet, Oral, DAILY, First dose on Thu08/12/22 at 0900, Until Discontinu ed, Routine [facility] foLIC acid (FOLATE) tablet 1 mg 08-12 15:00: 00 Yes 1mg 1 mg, Oral, DAILY, First dose on Thu08/12/22 at 0900, Until Discontinu ed, Routine [facility] foLIC acid 1 mg tablet 08-12 00:00: 00 09-12 04:59 :00 No [id number] 1mg Take 1 tablet by mouth in the morning for 30 days. [facility] oxazepam (SERAX) capsule 15 mg [...] Thu08/13/22 at 0600, Routine [Order 2 End] [facility] thiamine (VITAMIN B1) tablet 100 mg 08-11 16:15: 00 Yes 100mg 100 mg, Oral, DAILY, First dose on Thu08/11/22 at 1015, Until Discontinu ed, Routine [facility] enoxaparin (LOVENOX) injection 40 mg 08-10 23:00: 00 Yes 40mg 40 mg, Subcutaneo us, DAILY, First dose on Thu08/10/22 at 1700, Until Discontinu ed, Routine [facility] NaCl 0.9% (NS) IV infusion 1,000 mL 08-10 15:00: 00 Yes 1000mL at 125 mL/hr, IV Infusion, CONTINUOUS , Starting on Thu08/10/22 at 0900, Until Discontinu ed, Routine [facility] foLIC acid (FOLATE) 5 mg in NaCl 0.9% (NS) piggyback 08-10 15:00: 00 08-11 16:14 :47 No 5mg IV Piggyback, DAILY, First dose on Thu08/10/22 at 0900, Until Discontinu ed, 50 mL [facility] thiamine (VITAMIN B1) 100 mg in NaCl 0.9% (NS) piggyback 08-10 15:00: 00 08-10 16:08 :00 No 100mg IV Piggyback, DAILY, 1 dose, First dose on Thu08/10/22 at 0900, 50 mL [facility] LORazepam (ATIVAN) injection 2 mg 08-10 14:52: 57 Yes 2mg 2 mg, Slow IV Push, Q4HPRN, Starting on Thu08/10/22 at 0852, Until Discontinu ed, Routine, Seizures, Agitation, Anxiety [facility] Sliding Scale Insulin-Reg ular + Fsbg Testing 08-10 13:30: 00 Yes Subcutaneo us, AC+HS, First dose on Thu08/10/22 at 0730, Until Discontinu ed, Routine [facility] oxazepam (SERAX) capsule 15 mg 08-10 12:08: 05 Yes 15mg 15 mg, Oral, Q4HPRN, Starting on Thu08/10/22 at 0608, Until Discontinu ed, Routine, Only while awake for DBP equal to or greater than 100, HR equal to or greater than 100. [facility] dextrose 10% (D10W) bolus [...] blood glucose is < 80 mg/dL, repeat.
[facility] glucagon (GLUCAGEN DIAGNOSTIC KIT) injection 1 mg 08-10 12:03: 20 Yes 1mg 1 mg, Intramuscu lar, PRN, Starting on Thu08/10/22 at 0603, Until Discontinu ed, JACIEL, Blood Glucose < or = 70 mg/dL and patient is NPO, unable to swallow or has mental changes. [facility] ondansetron (ZOFRAN (PF)) injection 4 mg 08-10 12:02: 53 Yes 4mg 4 mg, Slow IV Push, Q6HPRN, Starting on Thu08/10/22 at 0602, Until Discontinu ed, Routine, Nausea and Vomiting (N/V) [facility] ibuprofen (MOTRIN IB) tablet 200 mg 08-10 12:02: 45 Yes 200mg 200 mg, Oral, Q6HPRN, Starting on Thu08/10/22 at 0602, Until Discontinu ed, Routine, Pain (scale 1-3) [facility] NaCl 0.9% (NS) bolus infusion 1,000 mL 08-10 10:15: 00 08-10 13:00 :00 No 1000mL at 999 mL/hr, 1,000 mL, IV Infusion, ONCE, 1 dose, On Thu08/10/22 at 0415, STAT [facility] LORazepam (ATIVAN) injection 0.5 mg 08-10 09:15: 00 08-10 09:19 :00 No .5mg 0.5 mg, Slow IV Push, ONCE, 1 dose, On Thu08/10/22 at 0315, STAT [facility] LORazepam (ATIVAN) injection 1 mg 08-10 08:00: 00 08-10 07:05 :00 No 1mg 1 mg, Slow IV Push, ONCE NOW, 1 dose, On 08/10/22 at 0200, STAT [facility] thiamine (VITAMIN B1) injection 100 mg 08-10 06:45: 00 08-10 06:52 :00 No 100mg 100 mg, Intravenou s, ONCE, 1 dose, On 08/10/22 at 0045, [facility] LOR[facility]epam (ATIVAN) injection 1 mg 08-10 05:15: 00 08-10 05:22 :00 No 1mg 1 mg, Slow IV Push, ONCE, 1 dose, On 08/09/22 at 2315, STAT [facility] ketorolac (TORADOL) injection 15 mg 2021-06 0-16 16:00: 00 04-06 14:50 :00 No 15mg 15 mg, Slow IV Push, ONCE, 1 dose, On 04/06/22 at 1100, [facility] ondansetron (ZOFRAN (PF)) injection 4 [...] Last dose on Thu12/31/21 at 1330, Routine [facility] multivitami n tablet 12-31 00:00: 00 Yes [id number] 1{tbl} Take 1 tablet by mouth in the morning. [facility] thiamine 100 mg tablet 12-31 00:00: 00 Yes [id number] 100mg Take 1 tablet by mouth in the morning. [facility] aspirin 81 mg chewable tablet 12-31 00:00: 00 Yes [id number] 81mg Take 1 tablet by mouth in the morning. [facility] foLIC acid 1 mg tablet 12-31 00:00: 00 01-31 04:59 :00 No [id number] 1mg Take 1 tablet by mouth in the morning for 30 days. [facility] metFORMIN 500 mg tablet 12-30 00:00: 00 Yes [id number] 500mg Take 1 tablet by mouth in the morning and 1 tablet in the evening. Take with meals. [facility] aspirin chewable tablet 81 mg 12-29 14:00: 00 Yes 81mg 81 mg, Oral, DAILY, First dose on Thu12/29/21 at 0900, Until Discontinu ed, Routine [facility] sulfur hexafluorid e microsphr (LUMASON) injection 5 mL 12-29 13:45: 00 12-29 13:45 :00 No [id number] 5mL 5 mL, Intravenou s, ONCE, 1 dose, On 12/29/21 at 0845, Routine
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 : STEFANIE GORMAN [facility] enoxaparin (LOVENOX) injection 40 mg 12-29 13:00: 00 Yes 40mg 40 mg, Subcutaneo us, Q24H, First dose on Thu12/29/21 at 0800, Until Discontinu ed, Routine [facility] Sliding Scale Insulin - Lispro (HumaLOG) + Fsbg Testing 12-29 13:00: 00 Yes Subcutaneo us, TID MEALS+HS, First dose on Thu12/29/21 at 0800, Until Discontinu ed, Routine [facility] diazePAM (VALIUM) injection 10 mg 12-29 05:30: 00 12-29 04:40 :00 No 10mg 10 mg, Intravenou s, ONCE, 1 dose, On Thu12/29/21 at 0030, Routine [facility] diazePAM (VALIUM) injection 10 mg 12-29 04:15: 00 12-29 03:17 :00 No 10mg 10 mg, Intravenou s, ONCE, 1 dose, On 12/28/21 at 2315, Routine [facility] diazePAM (VALIUM) injection 5 mg 12-29 03:45: 01 Yes 5mg 5 mg, Intravenou s, QIDPRN, Starting on 12/28/21 at 2245, Until Discontinu ed, Routine, Seizures, Agitation [facility] foLIC acid (FOLATE) tablet 1 mg 12-29 03:45: 00 Yes 1mg 1 mg, Oral, DAILY, First dose on 12/28/21 at 2245, Until Discontinu ed, Routine [facility] thiamine (VITAMIN B1) tablet 100 mg 12-29 03:45: 00 Yes 100mg 100 mg, Oral, DAILY, First dose (after last modificati on) on 12/28/21 at 2245, Until Discontinu ed, Routine [facility] glucagon (GLUCAGEN DIAGNOSTIC KIT) injection 1 mg 12-29 03:42: 19 Yes 1mg 1 mg, Intramuscu lar, PRN, Starting on 12/28/21 at 2242, Until Discontinu ed, JACIEL, Blood Glucose < or = 70 mg/dL and patient is unable to swallow or has mental changes. [facility] dextrose 10% (D10W) bolus infusion [...] blood glucose is < 80 mg/dL, repeat.
[facility] LORazepam (ATIVAN) injection 1 mg 12-29 03:30: 00 12-29 02:32 :00 No 1mg 1 mg, Intravenou s, ONCE, 1 dose, On 12/28/21 at 2230, Routine
Is the medication being used for status epilepticu s? No [facility] oxazepam (SERAX) capsule 15 mg 12-29 00:28: 20 Yes 15mg 15 mg, Oral, Q4HPRN, Starting on 12/28/21 at 1928, Until Discontinu ed, Routine, Only while awake for DBP equal to or greater than 100, HR equal to or greater than 100. [facility] ondansetron (ZOFRAN (PF)) injection 4 mg 12-29 00:23: 47 Yes 4mg 4 mg, Slow IV Push, Q6HPRN, Starting on 12/28/21 at 1923, Until Discontinu ed, Routine, Nausea and Vomiting (N/V) [facility] acetaminoph en (TYLENOL) tablet 650 mg 12-29 00:23: 37 Yes 650mg 650 mg, Oral, Q6HPRN, Starting on 12/28/21 at 1923, Until Discontinu ed, Routine, Pain (scale 1-3), Temp > 38.5 C [facility] chlordiazeP OXIDE (LIBRIUM) capsule 25 mg 12-28 23:15: 00 12-28 23:24 :00 No 25mg 25 mg, Oral, ONCE, 1 dose, On 12/28/21 at 1815, [facility] NaCl 0.9% (NS) bolus infusion 2,000 mL 12-28 22:45: 00 12-28 23:18 :00 No 2000mL at 999 mL/hr, 2,000 mL, IV Infusion, ONCE, 1 dose, On 12/28/21 at 1745, JACIEL [facility] LORazepam (ATIVAN) injection 1 mg 12-28 20:45: 00 12-28 20:49 :00 No 1mg 1 mg, Slow IV Push, ONCE, 1 dose, On 12/28/21 at 1545, STAT
Is the medication being used for status epilepticu s? No [facility] acetaminoph en (TYLENOL) 500 mg tablet 10-06 00:00: 00 Yes 500mg Take 1 Tab by mouth every 6 (six) hours as needed for Pain. [facility] Vital Signs Vital Name Observation Time Observation Value Comments S ource Systolic blood pressure 2023-12-13 05:16:00 125 mm[Hg] [facility] Diastolic blood pressure 2023-12-13 05:16:00 90 mm[Hg] [facility] Heart rate 2023-12-13 05:16:00 77 /min [facility] Body temperature 2023-12-13 05:16:[address] [facility] Respiratory rate 2023-12-13 05:16:00 16 /min [facility] Oxygen saturation in Arterial blood by Pulse oximetry 2023-12-13 05:16:00 98 /min [facility] Body height 2023-12-13 01:35:00 157.5 cm [facility] Body weight 2023-12-13 01:35:00 65.772 kg [facility] BMI 2023-12-13 01:35:00 26.52 kg/m2 [facility] Systolic blood pressure 2023-11-05 21:00:00 106 mm[Hg] [facility] Diastolic blood pressure 2023-11-05 21:00:00 70 mm[Hg] [facility] Heart rate 2023-11-05 21:00:00 74 /min [facility] Body temperature 2023-11-05 21:00:[address] [facility] Respiratory rate 2023-11-05 21:00:00 21 /min [facility] Oxygen saturation in Arterial blood by Pulse oximetry 2023-11-05 21:00:00 98 /min [facility] Body height 2023-11-05 19:59:00 160 cm [facility] Body weight 2023-11-05 19:59:00 63.504 kg [facility] BMI 2023-11-05 19:59:00 24.80 kg/m2 [facility] Systolic blood pressure 2022-11-11 20:31:31 116 mm[Hg] [facility] Diastolic blood pressure 2022-11-11 20:31:31 77 mm[Hg] [facility] Heart rate 2022-11-11 20:31:31 84 /min [facility] Respiratory rate 2022-11-11 20:31:31 12 /min [facility] Oxygen saturation in Arterial blood by Pulse oximetry 2022-11-11 20:31:31 90 /min [facility] Body temperature 2022-11-11 18:49:[address] [facility] Body height 2022-11-11 18:49:00 160 cm [facility] Body weight 2022-11-11 18:49:00 68.04 kg [facility] BMI 2022-11-11 18:49:00 26.57 kg/m2 [facility] Body temperature 2022-08-11 14:00:[address] [facility] Systolic blood pressure 2022-08-11 10:00:00 116 mm[Hg] [facility] Diastolic blood pressure 2022-08-11 10:00:00 71 mm[Hg] [facility] Heart rate 2022-08-11 10:00:00 70 /min [facility] Respiratory rate 2022-08-11 10:00:00 16 /min [facility] Body weight 2022-08-11 10:00:00 65.499 kg [facility] BMI 2022-08-11 10:00:00 25.58 kg/m2 [facility] Oxygen saturation in Arterial blood by Pulse oximetry 2022-08-11 10:00:00 100 /min [facility] Body height 2022-08-10 22:12:00 160 cm [facility] Systolic blood pressure 2022-04-06 16:00:00 125 mm[Hg] [facility] Diastolic blood pressure 2022-04-06 16:00:00 75 mm[Hg] [facility] Heart rate 2022-04-06 16:00:00 87 /min [facility] Respiratory rate 2022-04-06 16:00:00 22 /min [facility] Oxygen saturation in Arterial blood by Pulse oximetry 2022-04-06 16:00:00 98 /min [facility] Body temperature 2022-04-06 14:41:[address] [facility] Body height 2022-04-06 14:41:00 160 cm [facility] Body weight 2022-04-06 14:41:00 63.504 kg [facility] BMI 2022-04-06 14:41:00 24.80 kg/m2 [facility] Systolic blood pressure 2022-01-20 02:27:00 121 mm[Hg] [facility] Diastolic blood pressure 2022-01-20 02:27:00 75 mm[Hg] [facility] Heart rate 2022-01-20 02:27:00 79 /min [facility] Respiratory rate 2022-01-20 02:27:00 12 /min [facility] Oxygen saturation in Arterial blood by Pulse oximetry 2022-01-20 02:27:00 98 /min [facility] Body temperature 2022-01-19 22:19:[address] [facility] Body weight 2022-01-19 22:19:00 60.328 kg [facility] BMI 2022-01-19 22:19:00 23.56 kg/m2 [facility] Systolic blood pressure 2021-12-30 20:52:00 134 mm[Hg] [facility] Diastolic blood pressure 2021-12-30 20:52:00 76 mm[Hg] [facility] Heart rate 2021-12-30 20:52:00 67 /min [facility] Body temperature 2021-12-30 20:26:[address] [facility] Oxygen saturation in Arterial blood by Pulse oximetry 2021-12-30 20:26:00 99 /min [place] [facility] Respiratory rate 2021-12-30 16:21:00 18 /min [facility] Body weight 2021-12-30 08:27:00 60.464 kg [facility] BMI 2021-12-30 08:27:00 23.61 kg/m2 [facility] Body height 2021-12-29 01:29:00 160 cm [facility] Procedures Procedure Date / Time Performed Performing Clinician Source TROPONIN I 2023-12-13 03:32:00 Rafael Byrd [facility] XR CHEST 1 VW 2023-12-13 02:18:14 Rafael Byrd [facility] LIPASE 2023-12-13 02:07:00 Rafael Byrd [facility] TROPONIN I 2023-12-13 02:07:00 Rafael Byrd [facility] COMP. METABOLIC PANEL ([id number]) 2023-12-13 02:07:[address] [facility] CBC WITH DIFF 2023-12-13 02:07:00 Rafael Byrd [facility] XR CHEST 1 VW 2023-11-05 20:09:00 Sulaiman Hawkins [facility] LIPASE 2023-11-05 20:01:00 Sulaiman [facility] MAGNESIUM 2023-11-05 20:01:00 Sulaiman Hawkins [facility] TROPONIN I 2023-11-05 20:01:00 Sulaiman Hawkins [facility] COMP. METABOLIC PANEL ([id number]) 2023-11-05 20:01:[address] [facility] CBC WITH DIFF 2023-11-05 20:01:00 Sulaiman Hawkins [facility] N-TERMINAL PRO-BNP 2023-11-05 20:01:[address] [facility] MAGNESIUM 2022-11-11 19:05:00 Jessica [facility] BASIC METABOLIC PANEL (NA, K, CL, CO2, GLUCOSE, BUN, CREATININE, CA) 2022-11-11 19:05:00 [facility] 2022-11-11 19:05:00 Jessica [facility] CBC WITH DIFF 2022-11-11 19:05:00 Hemant Klein [facility] POCT GLUCOSE (AUTOMATED) 2022-08-11 13:36:[address] [facility] PHOSPHORUS 2022-08-11 10:35:00 Eve [facility] MAGNESIUM 2022-08-11 10:35:00 Eve [facility] AMMONIA, PLASMA 2022-08-11 10:35:00 Jessica Prado [facility] COMP. METABOLIC PANEL ([id number]) 2022-08-11 10:35:00 Eve [facility] CBC WITH DIFF 2022-08-11 10:35:00 Oswald Murphy [facility] POCT GLUCOSE (AUTOMATED) 2022-08-11 02:15:[address] [facility] POCT GLUCOSE (AUTOMATED) 2022-08-10 23:10:[address] [facility] POCT GLUCOSE (AUTOMATED) 2022-08-10 18:20:[address] [facility] POCT GLUCOSE (AUTOMATED) 2022-08-10 14:11:[address] [facility] POCT GLUCOSE (AUTOMATED) 2022-08-10 10:59:[address] [facility] COVID-19 (ID NOW RAPID TESTING) 2022-08-10 07:17:[address] [facility] LAB ONLY COVID INTERPRETATION 2022-08-10 07:17:[address] [facility] HB ECG ROUTINE & RHYTHM STRIP 2022-08-10 06:03:[address] [facility] URINALYSIS 2022-08-10 05:46:00 Rayray Driscoll [facility] URINE DRUG (IMMUNOASSAY) - COMPREHENSIVE DRUG SCREEN W/O REFLEX 2022-08-10 05:45:[address] [facility] CREATINE KINASE 2022-08-10 05:16:00 [facility] 2022-08-10 05:16:00 Rayray Driscoll [facility] MAGNESIUM 2022-08-10 05:16:00 Rayray Driscoll [facility] TROPONIN I 2022-08-10 05:16:00 Rayray Driscoll [facility] COMP. METABOLIC PANEL ([id number]) 2022-08-10 05:16:[address] [facility] ETHANOL 2022-08-10 05:16:00 Rayray Driscoll [facility] CBC WITH DIFF 2022-08-10 05:16:00 Rayray Driscoll [facility] N-TERMINAL PRO-BNP 2022-08-10 05:16:[address] [facility] CRITICAL CARE 2022-08-10 04:52:00 Rayray Driscoll [facility] XR CHEST 1 VW 2022-04-06 14:51:50 Diya Chowdhury [facility] LIPASE 2022-04-06 14:42:00 Diya Chowdhury [facility] TROPONIN I 2022-04-06 14:42:00 Diya Chowdhury [facility] COMP. METABOLIC PANEL ([id number]) 2022-04-06 14:42:[address] [facility] CBC WITH DIFF 2022-04-06 14:42:00 Diya Chowdhury [facility] PROTHROMBIN TIME / INR 2022-04-06 14:42:[address] [facility] ACTIVATED PARTIAL THRMPLAS NELDA 2022-04-06 14:42:00 Luciana [facility] LACTIC ACID WHOLE BLOOD 2022-01-20 00:22:[address] [facility] URINE DRUG (IMMUNOASSAY) - COMPREHENSIVE DRUG SCREEN 2022-01-19 23:10:[address] [facility] URINALYSIS 2022-01-19 23:10:00 Leticia Baldwin [facility] TROPONIN I 2022-01-19 23:00:00 Leticia Baldwin [facility] COMP. METABOLIC PANEL (88836) 2022-01-19 23:00:[address] [facility] LITHIUM 2022-01-19 23:00:00 Leticia Baldwin [facility] ETHANOL 2022-01-19 23:00:00 Leticia Baldwin [facility] CBC WITH DIFF 2022-01-19 23:00:00 Leticia Baldwin [facility] COVID-19 (ID NOW RAPID TESTING) 2022-01-19 23:00:[address] [facility] CT HEAD WO CONTRAST 2022-01-19 22:49:[address] [facility] XR CHEST 1 VW 2022-01-19 22:41:00 Leticia Baldwin [facility] POCT GLUCOSE (AUTOMATED) 2022-01-19 22:25:[address] [facility] POCT GLUCOSE (AUTOMATED) 2021-12-30 21:55:[address] [facility] POCT GLUCOSE (AUTOMATED) 2021-12-30 16:21:[address] [facility] POCT GLUCOSE (AUTOMATED) 2021-12-30 12:30:[address] [facility] HEPATIC FUNCTION PANEL (64484) (ALB,T.PRO,BILI T,BU/BC,ALT,AST,ALK PHOS) 2021-12-30 09:28:[address] [facility] POCT GLUCOSE (AUTOMATED) 2021-12-30 02:11:[address] [facility] POCT GLUCOSE (AUTOMATED) 2021-12-29 21:41:[address] [facility] POCT GLUCOSE (AUTOMATED) 2021-12-29 16:37:[address] [facility] TRANSTHORACIC ECHO (TTE) COMPLETE W/ CONTRAST 2021-12-29 13:05:[address] [facility] POCT GLUCOSE (AUTOMATED) 2021-12-29 12:41:[address] [facility] TROPONIN I 2021-12-29 09:42:00 Eve [facility] TROPONIN I 2021-12-29 04:55:00 Eve [facility] CT HEAD WO CONTRAST 2021-12-28 21:18:[address] [facility] AMMONIA, PLASMA 2021-12-28 21:00:00 Pia Renteria [facility] COVID-19 (ID NOW RAPID TESTING) 2021-12-28 20:42:[address] [facility] LAB ONLY COVID INTERPRETATION 2021-12-28 20:42:[address] [facility] URINE DRUG (IMMUNOASSAY) - COMPREHENSIVE DRUG SCREEN W/O REFLEX 2021-12-28 20:42:[address] [facility] URINALYSIS 2021-12-28 20:40:00 Pia Renteria [facility] N-TERMINAL PRO-BNP 2021-12-28 20:40:[address] [facility] TROPONIN I 2021-12-28 20:40:00 Pia Renteria [facility] THYROID STIMULATING HORMONE 2021-12-28 20:40:[address] [facility] COMP. METABOLIC PANEL (53385) 2021-12-28 20:40:[address] [facility] LIPID PANEL (62859)(TOTAL CHOLESTEROL, TRIGLYCERIDES, HDL) 2021-12-28 20:40:[address] [facility] ETHANOL 2021-12-28 20:40:00 Demetrius Langford [facility] CBC WITH DIFF 2021-12-28 20:40:00 Pia Renteria [facility] GLYCOSYLATED HEMOGLOBIN (A1C) 2021-12-28 20:40:[address] [facility] PROTHROMBIN TIME / INR 2021-12-28 20:40:[address] [facility] XR CHEST 1 VW 2021-12-28 20:16:00 Pia Renteria [facility] HB ECG ROUTINE & RHYTHM STRIP 2021-12-28 20:04:[address] [facility] Encounters Start Date/Time End Date/Time Encounter Type Admission Type Attending [facility] Care Facility Care Department Encounter ID Source 2021-09-17 16:45:00 Inpatient [facility] [id number] [facility] 2020-06-06 16:07:00 Inpatient [facility] [id number] [facility] 2020-06-06 06:20:00 Inpatient [facility] [id number] [facility] 2020-06-05 19:35:00 Inpatient [facility] [id number] [facility] 2020-05-23 19:53:00 Inpatient [facility] [id number] [facility] 2020-05-23 19:53:00 Inpatient [facility] [id number] [facility] 2023-12-12 20:44:00 2023-12-13 00:22:00 Emergency Rafael Byrd [facility] 1.2.840.114 350.1.13.10 4.2.7.2.686 [id number] [facility] 2023-11-05 14:54:00 2023-11-05 16:27:00 Emergency Sulaiman Hawkins [facility] 1.2.840.114 350.1.13.10 4.2.7.2.686 [id number] [facility] 2022-11-11 13:50:00 2022-11-11 16:07:00 Emergency X HEMANT KLEIN [facility] ERT [id number] [facility] 2022-11-11 13:50:00 2022-11-11 16:07:00 Emergency Hemant Klein [facility] 1.2.840.114 350.1.13.10 4.2.7.2.686 [id number] [facility] 2022-10-14 20:59:00 2022-10-14 20:59:00 Emergency [facility] [id number] [facility] 2022-10-14 20:59:00 2022-10-14 20:59:00 Emergency Emergency [place]into [facility] [id number] [facility] 2022-08-09 22:59:00 2022-08-11 13:02:00 Outpatient X JESSICA PRADO [facility] MAROG [id number] [facility] 2022-08-09 22:59:00 2022-08-11 13:02:00 Emergency Mukund DriscollJessica Avilez [facility] 1.2.840.114 350.1.13.10 4.2.7.2.686 [id number] [facility] 2022-04-06 09:38:00 2022-04-06 11:42:00 Emergency X DIYA CHOWDHURY [facility] ERT [id number] [facility] 2022-04-06 09:38:00 2022-04-06 11:42:00 Emergency Toddjose l Diya [facility] 1.2.840.114 350.1.13.10 4.2.7.2.686 [id number] [facility] 2022-03-07 12:38:00 2022-03-07 12:38:00 Emergency [facility] [id number] [facility] 2022-03-07 12:38:00 2022-03-07 12:38:00 Emergency Emergency Fidel Cuellar [facility] [id number] [facility] 2022-01-19 17:18:00 2022-01-19 22:00:00 Emergency X DIRK YARBROUGH [facility] ERT [id number] [facility] 2022-01-19 17:18:00 2022-01-19 22:00:00 Emergency Nicolasa Leticia Dirk Sutton [facility] 1.2.840.114 350.1.13.10 4.2.7.2.686 [id number] [facility] 2021-12-31 00:00:00 2021-12-31 00:00:00 Transition of Care Bandar Faye MIKMarlon MASSIEL NAVARRO 1.2.840.114 350.1.13.10 4.2.7.2.686 [id number] [facility] 2021-12-28 14:53:00 2021-12-30 17:42:00 Inpatient X JESSICA PRADO [facility] [id number] [facility] 2021-12-28 14:53:00 2021-12-30 17:42:00 Hospital Encounter Pia Renteria Jelani [facility] 1.2.840.114 350.1.13.10 4.2.7.2.686 [id number] [facility] 2021-09-17 16:47:00 2021-09-17 16:47:00 Emergency [facility] [id number] [facility] 2020-06-06 16:07:00 2020-06-06 16:07:00 Emergency [facility] [id number] [facility] Results Test Description Test Time Test Comments Results Result Co mments Source [facility] [id number] 02:57:27* Test Item Value Reference Range Interpretation Comme nts TROPONIN I (test code = 4468602268) 0.003 ng/mL <=0.034 JUAN ALBERTO (test code [...] of biotin. Lab Interpretation (test code = 73169-4) Normal [facility]. METABOLIC PANEL (26416)2023-12-13 02:46:25* Test Item Value Reference Range Interpretation Comme nts NA (test code = 7336897538) 144 mmol/L 135-145 K (test code = 8895037102) 3.9 mmol/L 3.5-5.0 CL (test code = 1898178295) 110 mmol/L 98-108 H CO2 TOTAL (test code = 8190660041) 20 mmol/L 23-31 L AGAP (test code = 1351650442) 14 2-16 BUN (test code = 9551707246) 13 mg/dL 7-23 GLUCOSE (test code = 4371011885) 163 mg/dL 70-110 H CREATININE (test code = 2160-0) 0.63 mg/dL 0.60-1.25 TOTAL BILI (test code = 9353477335) 0.3 mg/dL 0.1-1.1 CALCIUM (test code = 1016194191) 9.0 mg/dL 8.6-10.6 T PROTEIN (test code = 1329842880) 7.2 g/dL 6.3-8.2 ALBUMIN (test code = 5367149094) 4.1 g/dL 3.5-5.0 ALK PHOS (test code = 4529005785) 129 U/L 34-122 H ALTv (test code = 1742-6) 15 U/L 5-50 AST(SGOT) (test code = 6106191268) 34 U/L 13-40 eGFR (test code = 67610-2) 113.7 mL/min/1.73m2 CKD-EPI eGFR (2020). Assuming creatinine has been stable day-to-day for at least three months, the eGFR indicates Category G1 (>= 90 mL/min/1.73 m2) Lab Interpretation (test code = 55670-4) [facility]normal [facility], [id number] 02:45:25* Test Item Value Reference Range Interpretation Comme nts LIPASE (test code = 9998891503) 47 U/L 0-220 Lab Interpretation (test cod e = 20413-3) Normal [facility] 1 [id number] 02:40:35History: chest pain . Exam: XR CHEST 1 VW Date: 12/12/2023 9:15 PM Ordering provider: RAFAEL BYRD Technical quality: Adequate Comparison: 11/05/2023. Findings: Frontal view of the chest is obtained. The cardiac silhouette is normal in size. No evidence of infiltrate,pleural effusion, CHF, or pneumothorax.[facility] [id number] 02:33:48* Test Item Value Reference Range Interpretation [...] 33.2 g/dL 31.2-35.0 RDW-SD (test code = 71771-8) 54.4 fL 38.5-51.6 H RDW-CV (test code = 788-0) 15.9 % 12.1-15.4 H PLT (test code = 777-3) 318 150-328 MPV (test code = 28974-4) 8.5 fL 9.8-13.0 L NRBC/100 WBC (test code = 9019091386) 0.0 0.0-10.0 NRBC x10^3 (test code = 4528724054) See_Comment [Automated messa ge] The system which generated this result transmitted reference range: 10*3/?L. The reference range was not used to interpret this result as normal/abnormal. GRAN MAT (NEUT) % (test code = 770-8) 50.1 % IMM GRAN % (test code = 1281906094) 0.40 % LYMPH % (test code = 736-9) 37.6 % MONO % (test code = 5905-5) 6.8 % EOS % (test code = 713-8) 4.1 % BASO % (test code = 706-2) 1.0 % GRAN MAT x10^3(ANC) (test code = 1636315952) 3.66 10*3/uL 1.99-6.95 IMM GRAN x10^3 (test code = 6358505532) 0.03 10*3/uL 0.00-0.06 LYMPH x10^3 (test code = 731-0) 2.75 10*3/uL 1.09-3.23 MONO x10^3 (test code = 742-7) 0.50 10*3/uL 0.36-1.02 EOS x10^3 (test code = 711-2) 0.30 10*3/uL 0.06-0.53 BASO x10^3 (test code = 704-7) 0.07 10*3/uL 0.01-0.09 Lab Interpretation (test code = 79271-5) Abnormal [facility] 1 [id number] 20:15:30HISTORY: Chest pain. TECHNIQUE: Portable AP view of the chest is obtained. Comparison is beingmade with 04/06/2022 study. FINDINGS: No acute pneumonia. No pneumothorax or pleural effusion orpulmonarycongestion detected. Cardiac size is within normal limits.Prominent osteophytes are seen along right left vertebral margins at middleand lower thoracic spines. CONCLUSIONS: No signs of acute cardiopul monary disease.[facility]OL2023-[facility]-23 19:45:56 ALCOHOL<10mg/dL11/11/2022 2:45 PM [facility]<10 Yewukxbd45-655 Toxic>100 Depression of REHABILITATOR>400 [facility]OL[facility] PAN[facility] (NA, K, CL, CO2, GLUCOSE, BUN, CREATININE, CA)2022-11-11 19:41:47* Test Item Value Reference Range Interpretation Comme nts NA (test code = 6992788867) 138 mmol/L 135-145 K (test code = 6362536784) 4.8 mmol/L 3.5-5.0 CL (test code = 3953857348) 103 mmol/L 98-108 CO2 TOTAL (test code = 0858050028) 26 mmol/L 23-31 AGAP (test code = 9476141247) 9 2-16 BUN (test code = 3225534641) 17 mg/dL 7-23 GLUCOSE (test code = 2790977700) 219 mg/dL 70-110 H CREATININE (test code = 2744282340) 0.72 mg/dL 0.60-1.25 CALCIUM (test code = 2122903641) 10.0 mg/dL 8.6-10.6 eGFR (test code = 8371396016) 114.6 mL/min/1.73m2 JUAN ALBERTO (test code = [...] imaging tests). Lab Interpretation (test code = 34440-2) Abnormal [facility]2023-[facility]-23 19:41:47* Test Item Value Reference Range Interpretation Comme nts MAGNESIUM (test code = 7863076148) 1.8 mg/dL 1.7-2.4 Lab Interpretation (test cod e = 34074-3) Normal [facility] WITH [id number] 19:25:26* Test Item Value Reference Range Interpretation Comme nts WBC (test code = 6690-2) 6.82 See_Comment [Automated [email or web address]] The system which generated this result transmitted reference range: 4.20 - 10.70 10*3/?L. The reference range was not used to interpret this result as normal/abnormal. RBC (test code = 789-8) 4.98 See_Comment [Automated [email or web address]] The system which generated this result transmitted [...] 33.9 g/dL 31.2-35.0 RDW-SD (test code = 27788-3) 46.0 fL 38.5-51.6 RDW-CV (test code = 788-0) 13.5 % 12.1-15.4 PLT (test code = 777-3) 237 See_Comment [Automated [email or web address]] The system which generated this result transmitted reference range: 150 - 328 10*3/?L. The reference range was not used to interpret this result as normal/abnormal. MPV (test code = 56214-3) 8.9 fL 9.8-13.0 L NRBC/100 WBC (test code = 7878057236) 0.0 See_Comment [Automated me ssage] The system which generated this result transmitted reference range: 0.0 - 10.0 /100 WBCs. The reference range was not used to interpret this result as normal/abnormal. NRBC x10^3 (test code = 8813615657) See_Comment [Automated messa ge] The system which generated this result transmitted reference range: 10*3/?L. The reference range was not used to interpret this result as normal/abnormal. GRAN MAT (NEUT) % (test code = 770-8) 71.2 % IMM GRAN % (test code = 7737693663) 0.30 % LYMPH % (test code = 736-9) 18.2 % MONO % (test code = 5905-5) 8.4 % EOS % (test code = 713-8) 1.0 % BASO % (test code = 706-2) 0.9 % GRAN MAT x10^3(ANC) (test code = 1924846080) 4.86 10*3/uL 1.99-6.95 IMM GRAN x10^3 (test code = 7377297352) 0.00-0.06 LYMPH x10^3 (test code = 731-0) 1.24 10*3/uL 1.09-3.23 MONO x10^3 (test code = 742-7) 0.57 10*3/uL 0.36-1.02 EOS x10^3 (test code = 711-2) 0.07 10*3/uL 0.06-0.53 BASO x10^3 (test code = 704-7) 0.06 10*3/uL 0.01-0.09 Lab Interpretation (test code = 15384-0) Abnormal [facility], Urinalysis Rflx Cult/[id number] 22:20:00* Test Item Value Reference Range Interpretation Comme nts Color,Urine (test code = UCOL) Yellow Yellow Clarity,Urine (test code = UCLAR) Clear Clear Ph, Urine (test code = UPH) 7.0 5.0-9.0 N Specific [place],Urine (test code = USG) 1.020 1.005-1.030 N [...] code = ULEU) Negative mg/dL Negative Drug Screen,[id number] 22:20:00* Test Item Value Reference Range Interpretation [...] UPROP) Negative Negative Complete Blood Count Auto [id number] 21:21:00* Test Item Value Reference Range Interpretation [...] code = NRBCP) 0 % Comprehensive Metabolic [id number] 21:21:00* Test Item Value Reference Range Interpretation [...] a race coefficient. Additional information canbe found at:[email or web address]_qwe_ egfr_summary_flyer 5.pdf ([email or web address]) [Automated message] The system [...] = ALP) 134 U/L 46-116 H Ethanol [id number] 21:21:00* Test Item Value Reference Range Interpretation Comme nts Ethanol (test code = ETOH) < 3 mg/dL The pharmacologi yudy response to blood alcohol levels mayvary from individual to individual. The fatal concentrationhas been reported to be >400mg/dL. POCT GLUCOSE (AUTOMATED)2022-08-11 13:40:35* Test Item Value Reference Range Interpretation Comme nts POCT GLU (test code = 4181990386) 121 mg/dL 70-110 H Lab Interpretation (test cod e = 11548-6) Abnormal [facility] GLUCOSE (AUTOMATED)2022-08-11 02:18:58* Test Item Value Reference Range Interpretation Comme nts POCT GLU (test code = 5643921790) 183 mg/dL 70-110 H Lab Interpretation (test cod e = 00844-3) Abnormal [facility] GLUCOSE (AUTOMATED)2022-08-10 23:16:11* Test Item Value Reference Range Interpretation Comme nts POCT GLU (test code = 7466550561) 176 mg/dL 70-110 H Lab Interpretation (test cod e = 46815-2) Abnormal [facility] GLUCOSE (AUTOMATED)2022-08-10 18:22:51* Test Item Value Reference Range Interpretation Comme nts POCT GLU (test code = 8239255624) 165 mg/dL 70-110 H Lab Interpretation (test cod e = 04701-4) Abnormal [facility] GLUCOSE (AUTOMATED)2022-08-10 14:18:05* Test Item Value Reference Range Interpretation Comme nts POCT GLU (test code = 4979002322) 138 mg/dL 70-110 H Lab Interpretation (test cod e = 10509-3) Abnormal [facility] GLUCOSE (AUTOMATED)2022-08-10 11:01:21* Test Item Value Reference Range Interpretation Comme nts POCT GLU (test code = 9999942540) 143 mg/dL 70-110 H Lab Interpretation (test cod e = 76141-6) [facility]normal [facility] [id number] 06:51:18* Test Item Value Reference Range Interpretation Comme nts TROPONIN I (test code = 0978132755) 0.008 ng/mL <=0.034 JUAN ALBERTO (test code [...] of biotin. Lab Interpretation (test code = 38742-4) Normal [facility]MINAL CLO-[id number] 06:47:37* Test Item Value Reference Range Interpretation Comme nts NT-proBNP (test code = 3126309784) 37 pg/mL <=125 JUAN ALBERTO (test code = JUAN ALBERTO) Biotin has been reported to cause a negative bias, interpret results relative to patient's use of biotin. Lab Interpretation (test code = 76099-9) Normal [facility]2023-02-19 06:25:52 ALCOHOL<10mg/dL08/10/2022 12:25 AM [facility]<10 Zxwbhvuc27-065 Toxic>100 Depression of REHABILITATOR>400 Fatalities ReportedSt. Luke's Baptist HospitalCOM. METABOLIC PANEL (05742)2022-08-10 06:19:15* Test Item Value Reference Range Interpretation Comme nts NA (test code = 8667057534) 135 mmol/L 135-145 K (test code = 3260700873) 4.3 mmol/L 3.5-5.0 CL (test code = 1602490138) 98 mmol/L 98-108 CO2 TOTAL (test code = 0159332244) 30 mmol/L 23-31 AGAP (test code = 8452728044) 7 2-16 BUN (test code = 3503955916) 11 mg/dL 7-23 GLUCOSE (test code = 1476769926) 153 mg/dL 70-110 H CREATININE (test code = 0793605738) 0.77 mg/dL 0.60-1.25 TOTAL BILI (test code = 5703136521) 0.9 mg/dL 0.1-1.1 CALCIUM (test code = 6896729338) 10.0 mg/dL 8.6-10.6 T PROTEIN (test code = 0915949163) 7.7 g/dL 6.3-8.2 ALBUMIN (test code = 1076222329) 4.6 g/dL 3.5-5.0 ALK PHOS (test code = 5310954878) 92 U/L 34-122 ALTv (test code = 1742-6) 35 U/L 5-50 AST(SGOT) (test code = 0486306660) 42 U/L 13-40 H eGFR (test code = 2396770693) 106.1 mL/min/1.73m2 JUAN ALBERTO (test code = [...] imaging tests). Lab Interpretation (test code = 41831-0) Abnormal [facility]2023-02-19 06:19:15* Test Item Value Reference Range Interpretation Comme nts MAGNESIUM (test code = 0910250237) 2.2 mg/dL 1.7-2.4 Lab Interpretation (test cod e = 29375-9) Normal [facility]2023-[facility]-19 06:18:55* Test Item Value Reference Range Interpretation Comme nts LIPASE (test code = 8984151558) 18 U/L 0-220 Lab Interpretation (test cod e = 94979-7) Normal [facility] HospitalCREATINE [id number] 06:18:55* Test Item Value Reference Range Interpretation Comme nts CK (test code = 1833249851) 174 U/L 33-194 Lab Interpretation (test cod e = 51678-8) Normal [facility] WITH [id number] 06:02:35* Test Item Value Reference Range Interpretation [...] 32.4 g/dL 31.2-35.0 RDW-SD (test code = 45835-3) 50.2 fL 38.5-51.6 RDW-CV (test code = 788-0) 14.3 % 12.1-15.4 PLT (test code = 777-3) 241 See_Comment [Automated messa ge] The system which generated this result transmitted reference range: 150 - 328 10*3/?L. The reference range was not used to interpret this result as normal/abnormal. MPV (test code = 71279-6) 8.6 fL 9.8-13.0 L NRBC/100 WBC (test code = 6241742421) 0.0 See_Comment [Automated me ssage] The system which generated this result transmitted reference range: 0.0 - 10.0 /100 WBCs. The reference range was not used to interpret this result as normal/abnormal. NRBC x10^3 (test code = 8638091424) See_Comment [Automated messa ge] The system which generated this result transmitted reference range: 10*3/?L. The reference range was not used to interpret this result as normal/abnormal. GRAN MAT (NEUT) % (test code = 770-8) 63.9 % IMM GRAN % (test code = 3208491533) 0.50 % LYMPH % (test code = 736-9) 17.6 % MONO % (test code = 5905-5) 16.5 % EOS % (test code = 713-8) 0.7 % BASO % (test code = 706-2) 0.8 % GRAN MAT x10^3(ANC) (test code = 8724155923) 4.79 10*3/uL 1.99-6.95 IMM GRAN x10^3 (test code = 4357098835) 0.04 10*3/uL 0.00-0.06 LYMPH x10^3 (test code = 731-0) 1.32 10*3/uL 1.09-3.23 MONO x10^3 (test code = 742-7) 1.24 10*3/uL 0.36-1.02 H EOS x10^3 (test code = 711-2) 0.05 10*3/uL 0.06-0.53 L BASO x10^3 (test code = 704-7) 0.06 10*3/uL 0.01-0.09 Lab Interpretation (test code = 92108-8) Abnormal [facility] [id number] 15:15:32* Test Item Value Reference Range Interpretation Comments TROPONIN I (test code = 7494885422) 0.007 ng/mL See_Comment [Automated message] The system [...] of biotin. Lab Interpretation (test code = 02913-7) Normal [facility]PTT2022-10-16 15:08:29* Test Item Value Reference Range Interpretation Comme [facility] APTT Patient (test code = 3173-2) See_Comment [Automated message] The system which generated this result transmitted reference range: 23 - 38 Seconds. The reference range was not used to interpret this result as normal/abnormal. JUAN ALBERTO (test code = JUAN ALBERTO) The [facility] patient population mean normal value for aPTT is 30 seconds. Lab Interpretation (test code = 89307-7) Normal [facility] HospitalPROTHROMBIN TIME / [id number] 15:06:28* Test Item Value Reference Range Interpretation Comme [facility] PROTIME PATIENT (test code = 5964-2) See_Comment [Automated messa ge] The system which generated this result transmitted reference range: 12.0 - 14.7 Seconds. The reference range was not used to interpret this result as normal/abnormal. INR (test code = 6301-6) Normal INR <1.1; Warfarin Therapeutic range 2.0 to 3.0 or 2.5 to 3.5, depending upon the indications. Lab Interpretation (test code = 37522-0) Normal [facility] METABOLIC PANEL (30422)2022-04-06 15:03:31* Test Item Value Reference Range Interpretation Comme [facility] NA (test code = 7497373677) 136 mmol/L 135-145 K (test code = 3707788752) 5.0 mmol/L 3.5-5 CL (test code = 0748778020) 104 mmol/L 98-108 CO2 TOTAL (test code = 5196506414) 21 mmol/L 23-31 L AGAP (test code = 6839981874) 2-16 BUN (test code = 4810520461) 11 mg/dL 7-23 GLUCOSE (test code = 5871649149) 162 mg/dL 70-110 H CREATININE (test code = 7728884177) 0.52 mg/dL 0.6-1.25 L TOTAL BILI (test code = 1014755021) 1.0 mg/dL 0.1-1.1 CALCIUM (test code = 4949959295) 9.3 mg/dL 8.6-10.6 T PROTEIN (test code = 2140620256) 7.4 g/dL 6.3-8.2 ALBUMIN (test code = 2735487388) 4.4 g/dL 3.5-5 ALK PHOS (test code = 8639638614) 134 U/L 34-122 H ALTv (test code = 1742-6) 17 U/L 5-50 AST(SGOT) (test code = 1198377939) 38 U/L 13-40 eGFR (test code = 0147799906) mL/min/1.73m2 JUAN ALBERTO (test code = JUAN [...] imaging tests). Lab Interpretation (test code = 54605-5) [id number]:03:31* Test Item Value Reference Range Interpretation Comme nts LIPASE (test code = 6113611960) 29 U/L 0-220 Lab Interpretation (test cod e = 74207-3) Normal [facility] [id number] 14:51:49* Test Item Value Reference Range Interpretation Comme nts WBC (test code = 6690-2) See_Comment [Automated [employer]] The system which generated this result transmitted reference range: 4.20 - 10.70 10*3/?L. The reference range was not used to interpret this result as normal/abnormal. RBC (test code = 789-8) See_Comment [Automated [employer]] The system which generated this result [...] 34.0 g/dL 31.2-35 RDW-SD (test code = 04119-8) 45.9 fL 38.5-51.6 RDW-CV (test code = 788-0) 13.3 % 12.1-15.4 PLT (test code = 777-3) See_Comment [Automated [employer]] The system which generated this result transmitted reference range: 150 - 328 10*3/?L. The reference range was not used to interpret this result as normal/abnormal. MPV (test code = 94154-6) 8.4 fL 9.8-13 L NRBC/100 WBC (test code = 4026292802) See_Comment [Automated me ssage] The system which generated this result transmitted reference range: 0.0 - 10.0 /100 WBCs. The reference range was not used to interpret this result as normal/abnormal. NRBC x10^3 (test code = 4765996075) See_Comment [Automated messa ge] The system which generated this result transmitted reference range: 10*3/?L. The reference range was not used to interpret this result as normal/abnormal. GRAN MAT (NEUT) % (test code = 770-8) 63.0 % IMM GRAN % (test code = 8590196487) 0.50 % LYMPH % (test code = 736-9) 25.2 % MONO % (test code = 5905-5) 9.8 % EOS % (test code = 713-8) 0.3 % BASO % (test code = 706-2) 1.2 % GRAN MAT x10^3(ANC) (test code = 8895148188) 3.73 10*3/uL 1.99-6.95 IMM GRAN x10^3 (test code = 4539993396) 0.03 10*3/uL 0-0.06 LYMPH x10^3 (test code = 731-0) 1.49 10*3/uL 1.09-3.23 MONO x10^3 (test code = 742-7) 0.58 10*3/uL 0.36-1.02 EOS x10^3 (test code = 711-2) 0.06-0.53 L BASO x10^3 (test code = 704-7) 0.07 10*3/uL 0.01-0.09 Lab Interpretation (test code = 24322-9) [facility]normal [facility] Rflx Cult/Pjjtn9497-26-44 13:53:00* Test Item Value Reference Range Interpretation Comme nts Color,Urine (test code = UCOL) Yellow Yellow Clarity,Urine (test code = UCLAR) Cloudy Clear A Ph, Urine (test code = UPH) 7.5 5.0-9.0 N Specific [place],Urine (test code = USG) 1.025 1.005-1.030 N [...] = ULEU) Negative mg/dL Negative UF REFLEXDrug Screen,Jobph4587-06-10 13:53:00* Test Item Value Reference Range Interpretation [...] UPROP) Negative Negative Complete Blood Count Auto Bell4795-06-80 12:58:00* Test Item Value Reference Range Interpretation [...] = NRBCP) 0 % Coronavirus PCR, COVID19 Xxtfq4400-46-21 12:58:00* Test Item Value Reference Range Interpretation Comme nts Coronavirus PCR, COVID19 Rapid (test code = SARSCOV2) Coronavirus PCR, COVID19 Rapid (test code = QLNSJRZ48.1) Reference Range: Negative SARS-CoV-2 PCR Result: (test code = SARS-CoV-2 PCR Result:) Negative by RT-PCR COVID-19 Status: AsymptomaticComprehensive Metabolic Ztpnh9756-37-83 12:58:00* Test Item Value Reference Range Interpretation [...] = ALP) 144 U/L 46-116 H Ethanol Ozecr6645-86-05 12:58:00* Test Item Value Reference Range Interpretation Comme nts Ethanol (test code = ETOH) < 3 mg/dL The pharmacologi yudy response to blood alcohol levels mayvary from individual to individual. The fatal concentrationhas been reported to be >400mg/dL. YROUVSB1886-62-70 01:47:56* Test Item Value Reference Range Interpretation Comme nts [place] (test code = 7772076811) 0.7 mmol/L 0.6-1.2 JUAN ALBERTO (test code = JUAN ALBERTO) Toxic Range: ? Greater than 1.2 mmol/L Lab Interpretation (test code = 58211-7) Normal [facility] [id number] 00:26:53* Test Item Value Reference Range Interpretation Comments TROPONIN I (test code = 8765450757) 0.002 ng/mL See_Comment [Automated message] The system [...] of biotin. Lab Interpretation (test code = 27087-6) Normal [facility] HospitalETHANOL2022-08-01 00:18:52 ALCOHOL<10mg/dL01/19/2022 7:18 PM [facility]10 Mkswoyue28-978 Toxic>100 Depression of REHABILITATOR>400 Fatalities ReportedSt. Luke's [facility] HospitalCOMP. METABOLIC PANEL (65136)2022-01-20 00:16:16* Test Item Value Reference Range Interpretation Comme nts NA (test code = 7479393625) 137 mmol/L 135-145 K (test code = 7728912092) 4.5 mmol/L 3.5-5 CL (test code = 1000420955) 103 mmol/L 98-108 CO2 TOTAL (test code = 2593869234) 26 mmol/L 23-31 AGAP (test code = 4198618948) 2-16 BUN (test code = 3517927490) 10 mg/dL 7-23 GLUCOSE (test code = 7177486505) 121 mg/dL 70-110 H CREATININE (test code = 0429049290) 0.65 mg/dL 0.6-1.25 TOTAL BILI (test code = 1204829756) 0.8 mg/dL 0.1-1.1 CALCIUM (test code = 4139510796) 11.4 mg/dL 8.6-10.6 H T PROTEIN (test code = 8976972302) 7.2 g/dL 6.3-8.2 ALBUMIN (test code = 0537271982) 4.6 g/dL 3.5-5 ALK PHOS (test code = 4860578493) 112 U/L 34-122 ALTv (test code = 1742-6) 19 U/L 5-50 AST(SGOT) (test code = 5335735438) 26 U/L 13-40 eGFR (test code = 7429643304) mL/min/1.73m2 JUAN ALBERTO (test code = JUAN [...] imaging tests). Lab Interpretation (test code = 91476-4) Abnormal [facility] WITH [id number] 23:43:54* Test Item Value Reference Range Interpretation Comme nts WBC (test code = 6690-2) See_Comment [Automated [employer]] The system which generated this result transmitted reference range: 4.20 - 10.70 10*3/?L. The reference range was not used to interpret this result as normal/abnormal. RBC (test code = 789-8) See_Comment [Automated [employer]] The system which generated this result [...] 34.4 g/dL 31.2-35 RDW-SD (test code = 80122-2) 44.0 fL 38.5-51.6 RDW-CV (test code = 788-0) 12.6 % 12.1-15.4 PLT (test code = 777-3) See_Comment [Automated [employer]] The system which generated this result transmitted reference range: 150 - 328 10*3/?L. The reference range was not used to interpret this result as normal/abnormal. MPV (test code = 94788-7) 9.1 fL 9.8-13 L NRBC/100 WBC (test code = 0195858569) See_Comment [Automated [employer] ssage] The system which generated this result transmitted reference range: 0.0 - 10.0 /100 WBCs. The reference range was not used to interpret this result as normal/abnormal. NRBC x10^3 (test code = 3733286151) See_Comment [Automated [employer]] The system which generated this result transmitted reference range: 10*3/?L. The reference range was not used to interpret this result as normal/abnormal. GRAN MAT (NEUT) % (test code = 770-8) 69.8 % IMM GRAN % (test code = 2552951180) 0.40 % LYMPH % (test code = 736-9) 18.0 % MONO % (test code = 5905-5) 10.9 % EOS % (test code = 713-8) 0.1 % BASO % (test code = 706-2) 0.8 % GRAN MAT x10^3(ANC) (test code = 0205939182) 5.58 10*3/uL 1.99-6.95 IMM GRAN x10^3 (test code = 2827653527) 0.03 10*3/uL 0-0.06 LYMPH x10^3 (test code = 731-0) 1.44 10*3/uL 1.09-3.23 MONO x10^3 (test code = 742-7) 0.87 10*3/uL 0.36-1.02 EOS x10^3 (test code = 711-2) 0.06-0.53 L BASO x10^3 (test code = 704-7) 0.06 10*3/uL 0.01-0.09 Lab Interpretation (test code = 89650-2) Abnormal [facility] GLUCOSE (AUTOMATED)2022-01-19 22:27:41* Test Item Value Reference Range Interpretation Comme nts POCT GLU (test code = 5009799281) 123 mg/dL 70-110 H Lab Interpretation (test cod e = 25119-2) Abnormal [facility] GLUCOSE (AUTOMATED)2021-12-30 22:08:16* Test Item Value Reference Range Interpretation Comme nts POCT GLU (test code = 5007849844) 167 mg/dL 70-110 H Lab Interpretation (test cod e = 65266-2) Abnormal [facility] GLUCOSE (AUTOMATED)2021-12-30 16:50:40* Test Item Value Reference Range Interpretation Comme nts POCT GLU (test code = 3578941381) 154 mg/dL 70-110 H Lab Interpretation (test cod e = 81972-5) Abnormal [facility] GLUCOSE (AUTOMATED)2021-12-30 12:38:43* Test Item Value Reference Range Interpretation Comme nts POCT GLU (test code = 4370502406) 164 mg/dL 70-110 H Lab Interpretation (test cod e = 20962-9) Abnormal [facility] GLUCOSE (AUTOMATED)2021-12-30 02:14:58* Test Item Value Reference Range Interpretation Comme nts POCT GLU (test code = 5359083650) 220 mg/dL 70-110 H Lab Interpretation (test cod e = 00878-2) Abnormal [facility] GLUCOSE (AUTOMATED)2021-12-29 21:50:02* Test Item Value Reference Range Interpretation Comme nts POCT GLU (test code = 2948261591) 191 mg/dL 70-110 H Lab Interpretation (test cod e = 50422-5) Abnormal [facility] GLUCOSE (AUTOMATED)2021-12-29 20:15:01* Test Item Value Reference Range Interpretation Comme nts POCT GLU (test code = 3915711557) 163 mg/dL 70-110 H Lab Interpretation (test cod e = 18087-2) [facility]normal [facility] HospitalTransthoracic echo (TTE)2021-12-29 19:12:22* Test Item Value Reference Range Interpretation Comme nts Height (test code = 7125647012) in Weight (test code = 5527618634) lbs Systolic BP (test code = 7478522164) mmHg Diastolic BP (test code = 6969695882) mmHg Heart Rate (test code = 1158232243) bpm BSA (test code = 1173387720) 1.62 m2 Ao root annulus (test code = 5461830725) 2.45 cm Ao root diam (test code = 3724489139) 2.45 cm Aortic root (test code = 6745273152) 2.45 cm ACS (test code = 9961426399) 1.66 cm LA size (test code = 3630122090) 3.2 cm LVOT diameter (test code = 5466880807) 1.95 cm LVIDD (test code = 5260562265) 3.60 cm IVS (test code = 8166289651) 0.94 cm Interventricular Septum Diastolic Thickness by 2D (test code = 5466282) 0.94 cm LVPWD (test code = 3394720674) 0.80 cm PW (test code = 1963015761) 0.80 cm 0.6-1.1 EF(Teich) (test code = 7389266823) 52.80 % LVIDS (test code = 6585194711) 2.60 cm FS (test code = 7039399035) 27 % EF - 2D (test code = 59863066) 52.80 % LAV(MOD-sp4) (test code = 2508884844) 16.80 mL MV Peak E Jovany (test code = 4300760476) 46.1 cm/s E wave decelartion time (test code = 7094739990) 0.31 s MV Peak A Jovany (test code = 8715448884) 58.1 cm/s E/A ratio (test code = 4518557970) ratio MV E/e' septal (test code = 6633590524) 5.7 cm/s Tapse (test code = 5727298839) 1.60 cm LVOT stroke volume (test code = 5832689484) 52.10 cm3 LVOT peak jovany (test code = 5673197656) 110.6 cm/s LVOT mn grad (test code = 3027348708) mmHg AV LVOT peak gradient (test code = 5923766062) mmHg LVOT peak VTI (test code = 4735407220) 17.4 cm LV V1 mean (test code = 6493883534) 66.10 cm/s Aortic valve mean velocity (test code = 7560611930) 73.0 cm/s Ao peak jovany (test code = 8682984516) 124.6 cm/s Ao VTI (test code = 9501778053) 18.6 cm AV area by cont VTI (test code = 5361968441) 2.8 cm2 AV area peak jovany (test code = 3525804493) 2.7 cm2 Ao max PG (test code = 6325162457) 6.20 mm[Hg] AV peak gradient (test code = 6457406638) mmHg AV valve area (test code = 7598236040) 2.80 cm2 AV mean gradient (test code = 2458407173) mmHg Radiology Study observation (narrative) (test code = 98004-4) JUAN ALBERTO (test code = JUAN ALBERTO) [...] of Lumason ultrasound enhancing agent used. [facility] (AUT[facility])2021-12-29 12:50:31* Test Item Value Reference Range Interpretation Comme nts POCT GLU (test code = 9834896035) 141 mg/dL 70-110 H Lab Interpretation (test cod e = 45251-6) Abnormal [facility] HospitalTroponin [id number] 10:38:31* Test Item Value Reference Range Interpretation Comments TROPONIN I (test code = 9901867983) 0.003 ng/mL See_Comment [Automated message] The system [...] of biotin. Lab Interpretation (test code = 61624-8) Normal [facility] HospitalLIPID PANEL (70327)(TOTAL CHOLESTEROL, TRIGLYCERIDES, HDL)2021-12-29 05:56:47* Test Item Value Reference Range Interpretation Comme nts CHOL (test code = 1656453644) 168 mg/dL 120-200 HDL (test code = 7468964471) 102 mg/dL See_Comment [[employer]] The system which generated this result transmitted reference range: >=40. The reference range was not used to interpret this result as normal/abnormal. HDLC RATIO (test code = 3859437630) See_Comment [Automated [employer]] The system which generated this result transmitted reference range: <=5.0. The reference range was not used to interpret this result as normal/abnormal. TRIG (test code = 8214397436) 55 mg/dL 30-170 LDL CHOL (test code = 55020-3) 55 mg/dL See_Comment [[employer]] The system which generated this result transmitted reference range: <=160. The reference range was not used to interpret this result as normal/abnormal. VLDL (test code = 1873185396) 11 mg/dL 5-60 Lab Interpretation (test code = 32570-3) Normal [facility] HospitalThyroid Stimulating Hormone (TSH)2021-12-29 05:40:29* Test Item Value Reference Range Interpretation Comme nts TSH (test code = 7735173085) See_Comment Biotin has been reported to cause a negative bias, interpret results relative to patient's use of biotin. [Automated message] The system which generated this result transmitted reference range: 0.45 - 4.70 mIU/L. The reference range was not used to interpret this result as normal/abnormal. Lab Interpretation (test code = 96334-4) Normal [facility] [id number] 05:34:29* Test Item Value Reference Range Interpretation Comments TROPONIN I (test code = 1140516968) 0.006 ng/mL See_Comment [Automated message] The system [...] of biotin. Lab Interpretation (test code = 33050-6) Normal [facility] HospitalETHANOL2022-07-10 04:43:01 ALCOHOL<10mg/dL12/28/2021 11:43 PM [facility] Greater than or equal to 80 mg/dL. NOTE: Whole blood values are approximately 10% to 15% lower than serum and plasma.[facility] Glycosylated Hemoglobin (A1C)2021-12-29 01:51:44* Test Item Value Reference Range Interpretation Comme nts HGB A1C (test code = 4548-4) 6.5 % 4-5.7 H JUAN ALBERTO (test code = JUAN ALBERTO) Reference RangesNormal: <5.7%Prediabetes: 5.7 - 6.4%Diabetes: > 6.5% Lab Interpretation (test code = 88796-8) Abnormal [facility] [id number] 21:26:50* Test Item Value Reference Range Interpretation Comments TROPONIN I (test code = 5184907935) 0.002 ng/mL See_Comment [Automated message] The system [...] of biotin. Lab Interpretation (test code = 00185-1) Normal [facility] HospitalN-TERMINAL WNB-BWB7144-00-09 21:23:29* Test Item Value Reference Range Interpretation Comme nts NT-proBNP (test code = 7800543729) 41 pg/mL See_Comment [Automated message] The system which generated this result transmitted reference range: <=125. The reference range was not used to interpret this result as normal/abnormal. JUAN ALBERTO (test code = JUAN ALBERTO) Biotin has been reported to cause a negative bias, interpret results relative to patient's use of biotin. Lab Interpretation (test code = 93084-7) Normal [facility] HospitalAMMONIA, [id number] 21:20:38* Test Item Value Reference Range Interpretation Comme nts AMMONIA (test code = 0518901138) 9-33 L Slight hemolysis Lab Interpretation (test code = 03402-5) Abnormal [facility] HospitalCOMP. METABOLIC PANEL (97647)2021-12-28 21:08:48* Test Item Value Reference Range Interpretation Comme nts NA (test code = 6005608174) 137 mmol/L 135-145 K (test code = 7180736532) 4.5 mmol/L 3.5-5 CL (test code = 8675567664) 97 mmol/L 98-108 L CO2 TOTAL (test code = 5913115342) 29 mmol/L 23-31 AGAP (test code = 0619270347) 2-16 BUN (test code = 8404122787) 10 mg/dL 7-23 GLUCOSE (test code = 1322031150) 188 mg/dL 70-110 H CREATININE (test code = 3968887797) 0.58 mg/dL 0.6-1.25 L TOTAL BILI (test code = 5771626145) 0.8 mg/dL 0.1-1.1 CALCIUM (test code = 4263404438) 10.5 mg/dL 8.6-10.6 T PROTEIN (test code = 5996301004) 7.6 g/dL 6.3-8.2 ALBUMIN (test code = 9570172453) 4.5 g/dL 3.5-5 ALK PHOS (test code = 7834618807) 107 U/L 34-122 ALTv (test code = 1742-6) 66 U/L 5-50 H AST(SGOT) (test code = 2870735963) 96 U/L 13-40 H eGFR (test code = 2917682645) mL/min/1.73m2 JUAN ALBERTO (test code = JUAN [...] imaging tests). Lab Interpretation (test code = 27438-8) Abnormal [facility] HospitalPROTHROMBIN TIME / [id number] 21:01:25* Test Item Value Reference Range Interpretation Comme nts PROTIME PATIENT (test code = 5964-2) See_Comment [Automated [employer]] The system which generated this result transmitted reference range: 12.0 - 14.7 Seconds. The reference range was not used to interpret this result as normal/abnormal. INR (test code = 6301-6) Normal INR <1.1; Warfarin Therapeutic range 2.0 to 3.0 or 2.5 to 3.5, depending upon the indications. Lab Interpretation (test code = 45916-4) Normal [facility] WITH [id number] 20:54:03* Test Item Value Reference Range Interpretation Comme nts WBC (test code = 6690-2) See_Comment [Automated [employer]] The system which generated this result transmitted reference range: 4.20 - 10.70 10*3/?L. The reference range was not used to interpret this result as normal/abnormal. RBC (test code = 789-8) See_Comment [Automated [employer]] The system which generated this result [...] 34.2 g/dL 31.2-35 RDW-SD (test code = 80636-6) 47.8 fL 38.5-51.6 RDW-CV (test code = 788-0) 13.3 % 12.1-15.4 PLT (test code = 777-3) See_Comment [Automated [employer]] The system which generated this result transmitted reference range: 150 - 328 10*3/?L. The reference range was not used to interpret this result as normal/abnormal. MPV (test code = 13874-3) 8.6 fL 9.8-13 L NRBC/100 WBC (test code = 5795978923) See_Comment [Automated me ssage] The system which generated this result transmitted reference range: 0.0 - 10.0 /100 WBCs. The reference range was not used to interpret this result as normal/abnormal. NRBC x10^3 (test code = 9879440733) See_Comment [Automated messa ge] The system which generated this result transmitted reference range: 10*3/?L. The reference range was not used to interpret this result as normal/abnormal. GRAN MAT (NEUT) % (test code = 770-8) 64.1 % IMM GRAN % (test code = 1158105154) 0.40 % LYMPH % (test code = 736-9) 16.6 % MONO % (test code = 5905-5) 17.2 % EOS % (test code = 713-8) 0.2 % BASO % (test code = 706-2) 1.5 % GRAN MAT x10^3(ANC) (test code = 0263951049) 3.47 10*3/uL 1.99-6.95 IMM GRAN x10^3 (test code = 2252709554) 0-0.06 LYMPH x10^3 (test code = 731-0) 0.90 10*3/uL 1.09-3.23 L MONO x10^3 (test code = 742-7) 0.93 10*3/uL 0.36-1.02 EOS x10^3 (test code = 711-2) 0.06-0.53 L BASO x10^3 (test code = 704-7) 0.08 10*3/uL 0.01-0.09 Lab Interpretation (test code = 95213-7) Abnormal [facility] HospitalEthanol Nmfre2372-06-49 21:08:00* Test Item Value Reference Range Interpretation Comme nts Ethanol (test code = ETOH) < 3 mg/dL The pharmacologi yudy response to blood alcohol levels mayvary from individual to individual. The fatal concentrationhas been reported to be >400mg/dL. Complete Blood Count Auto Qdbp4024-24-04 17:33:00* Test Item Value Reference Range Interpretation [...] = NRBCP) 0 % UA, Urinalysis Rflx Cult/Iyxak9287-19-91 17:33:00* Test Item Value Reference Range Interpretation Comme nts Color,Urine (test code = UCOL) Dark Yellow Yellow A Clarity,Urine (test code = UCLAR) Clear Clear Ph, Urine (test code = UPH) 6.5 5.0-9.0 N Specific [place],Urine (test code = USG) 1.015 1.005-1.030 N [...] = ULEU) Trace mg/dL Negative A Urine Uyqkmmcdstw3906-08-77 17:33:00* Test Item Value Reference Range Interpretation Comme nts RBC,Urine (test code = URBCUF) None Seen /HPF 0-2 WBC,Urine (test code = UWBCUF) 0-5 /HPF 0-5 Epithelial Cell,Urine (test code = UECUF) 0-5 /HPF 0-5 Casts,Urine (test code = UCASTUF) None Seen /LPF None Seen Bacteria,Urine (test code = UBACTUF) None Seen /hpf None Seen Drug Screen,Phkan2070-14-76 17:33:00* Test Item Value Reference Range Interpretation [...] code = UPROP) Negative Negative Comprehensive Metabolic Yrhvq3405-38-04 17:33:00* Test Item Value Reference Range Interpretation [...] 101 U/L 46-116 N Sars-CoV-2/FLU A/B RSV [id number] 17:31:00* Test Item Value Reference Range Interpretation [...] SARS-CoV-2 PCR Result:) Negative by RT-PCR Drug Screen,Gaoeu7262-47-79 17:20:00* Test Item Value Reference Range Interpretation [...] UPROP) Negative Negative Complete Blood Count Auto Lzco8455-96-07 17:14:00* Test Item Value Reference Range Interpretation [...] code = NRBCP) 0 % Comprehensive Metabolic Npzsv2708-21-06 17:14:00* Test Item Value Reference Range Interpretation [...] = ALP) 207 U/L 46-116 H Ethanol Jrezr7676-55-79 17:14:00* Test Item Value Reference Range Interpretation Comme nts Ethanol (test code = ETOH) 192 mg/dL Complete Blood Count Auto Lhex2549-08-67 20:20:00* Test Item Value Reference Range Interpretation [...] code = NRBCP) 0 % Comprehensive Metabolic Jdojd5772-12-48 20:20:00* Test Item Value Reference Range Interpretation [...] = ALP) 189 U/L 46-116 H Ethanol Iickf4261-93-27 20:20:00* Test Item Value Reference Range Interpretation Comme nts Ethanol (test code = ETOH) 10 mg/dL Sars-CoV-2/FLU A/B RSV [id number] 20:20:00* Test Item Value Reference Range Interpretation [...] Negative by Nucleic Acid Amplification UA, Urinalysis Ealjmsmqpgg2515-12-02 20:20:00* Test Item Value Reference Range Interpretation Comme nts Color,Urine (test code = UCOL) Yellow Y Clarity,Urine (test code = UCLAR) Clear Clear PH,Urine (test code = UPH.XX) 7.0 5.5-8.5 Specific [place],Urine (test code = USG) 1.020 1.005-1.030 N [...] code = ULEU) Negative cells/uL Negative Drug Screen,Mfawo6592-85-19 20:20:00* Test Item Value Reference Range Interpretation [...] FO LLOW CT head/brain wo [facility] [address] [place] [address] Patient Name: Walt Velazquez Medical Record#: [id number] Address: Homeless City/State/Zip: [place] [address]: Vinnie Navarro MD Insurance: Self Pay /Age/Sex: 1970/50/M Admit/Reg Date: 09/17/[address]: Vinnie Navarro MD Location: [facility]/ PCP: PcpMd KERWIN Jimenez Date of Service: 09/17/21 Order (s): CT head/brain wo con CPT Code: 63122 Report Number: [id number] Reason for Exam: Altered mental status Location [...] Karen Sanders MD 09/17/211824 Signed By: Karen aSnders MD 09/17/211824 TD/TT: 09/17/211824 Tech: [id number] cc: [...] steady gait, in no apparent distress, T [facility] [employer] 2023-12-12 22:20:05 Pt removed all monitoring equipment T [facility] [employer] 2023-12-12 20:33:23 Pt brought in by [place] [facility] for medical clearance. [place] [facility] check pt out on scene but after pt complained of chest pain. [place] [facility] brought pt in for clearance for county. Zeina Albrecht RN [facility] 2023-11-05 16:26:20 Pt discharged with diagnosis of CP. Printed and verbal instructions reviewed with and given to pt. Prescriptions given x 0. Pt verbalized understanding of teaching and recommended follow-up. Denies questions or concerns at this time. Pt ambulatory to holding room to await transportation at discharge. Appears in no apparent distress. No ataxia noted. [facility]. Renae Saldivar RN [facility] 2023-11-05 14:56:10 Walt Festus Velazquez Sr. is a 52 year old male arrive via [facility] c/o " throbbing ball in chest" since 0600 has been constant, pt immediately asks for food, Emani Gomez RN [facility]
[2024-02-12] MEDS ORDERED: PHENYTOIN ER 100 MG CAP PO ONE (11:59)
[2024-02-12] MEDS ORDERED: NA CHLORIDE 0.9% 1,000 ML ONE (11:59)
--- NOTE | 2024-02-12 13:29 | EDPHYS ---
Physician Documentation [facility] Name: Walt Velazquez Age: 53 yrs Sex: Male : 1970 Arrival Date: 02/12/2024 Time: 11:32 Bed 16 Private MD: ED Physician Kaiser Marei HPI: 02/11 11:47 This 53 yrs old Male presents to ER via EMS with complaints of possible rn seizure. 11:48 The patient presents after having a possible seizure episode. Seizure onset: just prior rn to arrival. Associated injury: The patient did not suffer any apparent associated injury. Current symptoms: Currently, the patient is not experiencing any symptoms. The patient has experienced similar episodes in the past. Patient reports was walking outside, felt overheated, felt like he was going to have a seizure then woke up on the ground. Still not taking his seizure medication like he should. Still drinking daily. Denies drug use. Denies injury from seizure. Woke up to a woman shaking him. Now has no complaints just asked for food.. Historical: - Allergies: 11:41 Trazodone; rs5 - PMHx: 11:41 Hypertensive disorder; Seizure; rs5 - PSHx: 11:41 None; rs5 - Immunization history:: Adult Immunizations up to date. - Infectious Disease History:: Denies. - Social history:: Smoking status: Patient denies any tobacco usage or history of. - Family history:: not pertinent. - Hospitalizations: : No recent hospitalization is reported. ROS: 11:48 Constitutional: Negative for fever, chills, and weight loss, Neck: Negative for injury, rn pain, and swelling, Cardiovascular: Negative for chest pain, palpitations, and edema, Respiratory: Negative for shortness of breath, cough, wheezing, and pleuritic chest pain, Abdomen/GI: Negative for abdominal pain, nausea, vomiting, diarrhea, and constipation, Back: Negative for injury and pain, MS/Extremity: Negative for injury and deformity, Skin: Negative for injury, rash, and discoloration, Neuro: Positive for generalized weakness and possible seizure Exam: 11:48 Constitutional: This is a well developed, well nourished patient who is awake, alert, rn and in no acute distress. Head/Face: Normocephalic, atraumatic. ENT: Dry mucous membranes Cardiovascular: Regular rate and rhythm. No pulse deficits. Respiratory: No increased work of breathing, no retractions or nasal flaring. Abdomen/GI: Soft, non-tender MS/ Extremity: Pulses equal, no cyanosis. Neuro: Awake and alert, GCS 15, oriented to person, place, time, and situation. Cranial nerves II-XII grossly intact. Motor strength 5/5 in all extremities. Sensory grossly intact. 17:28 ECG was reviewed by the Attending Physician. rn Vital Signs: 11:38 BP 105 / 75; Pulse 80; Resp 17; Temp 97.8(O); Pulse Ox 98% ; rs5 13:33 BP 110 / 79; Pulse 82; Resp 17; Pulse Ox 98% ; rs5 MDM: 11:34 Patient medically screened. rn 13:27 Differential diagnosis: seizure, Dehydration, alcohol intoxication. Data reviewed: rn vital signs, nurses notes, lab test result(s), EKG, and as a result, I will discharge patient. Counseling: I had a detailed discussion with the patient and/or guardian regarding the historical points, exam findings, and any diagnostic results supporting the discharge/admit diagnosis, lab results, radiology results, the need for outpatient follow up, to return to the emergency department if symptoms worsen or persist or if there are any questions or concerns that arise at home. Special discussion: I discussed with the patient/guardian in detail that at this point there is no indication for admission to the hospital. It is understood, however, that if the symptoms persist or worsen the patient needs to return immediately for re-evaluation. ED course: Patient ambulatory without assistance around the ER, initially ripped out his IV and did not want anything done, came back and received medication, ate, drinking water, normal vital signs, will discharge if he can get a ride. 02/11 11:41 Order name: BMP; Complete Time: 13:16 rn 02/11 11:41 Order name: ETOH Level; Complete Time: 13:16 rn 02/11 11:41 Order name: EKG; Complete Time: 11:41 rn 02/11 11:41 Order name: IV Start; Complete Time: 11:59 rn 02/11 11:41 Order name: EKG - Nurse/Tech; Complete Time: 12:30 rn EC:28 Rate is 94 beats/min. Rhythm is regular. QRS [place] is Normal. [place] interval is normal. QRS rn interval is normal. QT interval is normal. No Q waves. T waves are Normal. No ST changes noted. Clinical impression: NSR w/ Non-specific ST/T Changes. Interpreted by me. Reviewed by me. Administered Medications: 12:00 Drug: NS 0.9% IV 1000 ml IV at 1000 ml once Route: IV; Rate: 1000 ml; Site: left rs5 antecubital; 12:00 Drug: Phenytoin Sodium Extended PO 500 mg PO once Route: PO; rs5 13:00 Follow up: Response: No adverse reaction rs5 Disposition Summary: 02/12/24 13:28 Discharge Ordered Notes: Location: Home rn Problem: new rn Symptoms: have improved rn Condition: Stable rn Diagnosis - Alcohol abuse rn - Epileptic seizures related to external causes, not intractable, without status rn epilepticus Followup: rn - With: Private Physician - When: As needed - Reason: Recheck today's complaints, Re-evaluation by your physician Discharge Instructions: - Discharge Summary Sheet rn - Alcohol Use Disorder rn - Seizure, Adult rn Forms: - Medication Reconciliation Form rn - Antibiotic finished yarn examiner - Prescription Opioid Use rn - Patient Portal Instructions rn - Leadership Thank You Letter rn Signatures: Dispatcher [employer] Kaiser Rausch MD MD rn Sotelo, Ricky, RN RN rs5 Corrections: (The following items were deleted from the chart) 11:41 11:41 PSHx: Unable to Obtain; rs5 rs5
--- NOTE | 2024-02-12 13:29 | ER ---
Nurse's Notes [facility] Name: Walt Velazquez Age: 53 yrs Sex: Male : 1970 Arrival Date: 02/12/2024 Time: 11:32 Bed 16 Private MD: Diagnosis: Alcohol abuse;Epileptic seizures related to external causes, not intractable, without status epilepticus Presentation: 02/11 11:38 Chief complaint: EMS states: Possible syncopal episode, unwitnessed. Bystander saw him rs5 on the floor slurring his words and called EMS, pt reports having had several drinks this morning. Coronavirus screen: At this time, the client does not indicate any symptoms associated with coronavirus-19. Ebola Screen: No symptoms or risks identified at this time. Initial Sepsis Screen: Does the patient meet any 2 criteria? No. Patient's initial sepsis screen is negative. Does the patient have a suspected source of infection? No. Patient's initial sepsis screen is negative. Risk Assessment: Do you want to hurt yourself or someone else? Patient reports no desire to harm self or others. Onset of symptoms was February 12, 2024. 11:38 Method Of Arrival: EMS: [facility] rs5 11:38 Acuity: LATASHA 3 rs5 Triage Assessment: 11:35 General: Appears in no apparent distress. comfortable, Behavior is calm, cooperative. rs5 Historical: - Allergies: 11:41 Trazodone; rs5 - PMHx: 11:41 Hypertensive disorder; Seizure; rs5 - PSHx: 11:41 None; rs5 - Immunization history:: Adult Immunizations up to date. - Infectious Disease History:: Denies. - Social history:: Smoking status: Patient denies any tobacco usage or history of. - Family history:: not pertinent. - Hospitalizations: : No recent hospitalization is reported. Screenin:35 [facility] ED Fall Risk Assessment (Adult) History of falling in the last 3 months, rs5 including since admission Yes- single mechanical fall (1 pt) Confusion or Disorientation No (0 pts) Intoxicated or Sedated Yes (3 pts) Impaired Gait No (0 pts) Mobility Assist Device Used No (0 pt) Altered Elimination No (0 pt) Score/Fall Risk Level 0 - 2 = Low Risk Oriented to surroundings, Maintained a safe environment. Abuse screen: Denies threats or abuse. Nutritional screening: No deficits noted. Tuberculosis screening: No symptoms or risk factors identified. Assessment: 11:35 General: Appears in no apparent distress. comfortable, Behavior is calm, cooperative. rs5 Pain: Denies pain. Neuro: Level of Consciousness is awake, alert, obeys commands, Oriented to person, place, time, situation. Cardiovascular: Patient's skin is warm and dry. Respiratory: Airway is patent Respiratory effort is even, unlabored, Respiratory pattern is regular, symmetrical. GI: Abdomen is round non-distended, Abd is soft and non tender X 4 quads. : No signs and/or symptoms were reported regarding the genitourinary system. EENT: No signs and/or symptoms were reported regarding the EENT system. Derm: Skin is intact, Skin is pink, warm \T\ dry. Musculoskeletal: Range of motion: intact in all extremities. 12:40 Reassessment: Patient and/or family updated on plan of care and expected duration. Pain rs5 level reassessed. Patient is alert, oriented x 3, equal unlabored respirations, skin warm/dry/pink. 13:39 Reassessment: No changes from previously documented assessment. rs5 13:40 Reassessment: Pt left before signing discharge paper work. rs5 Vital Signs: 11:38 BP 105 / 75; Pulse 80; Resp 17; Temp 97.8(O); Pulse Ox 98% ; rs5 13:33 BP 110 / 79; Pulse 82; Resp 17; Pulse Ox 98% ; rs5 ED Course: 11:34 Patient arrived in ED. eb 11:34 Kaiser Marie MD is Attending Physician. rn 11:35 No provider procedures requiring assistance completed. rs5 11:35 Patient has correct armband on for positive identification. Placed in gown. Bed in low rs5 position. Call light in reach. Side rails up X2. 11:35 Arm band placed on right wrist. rs5 11:38 Vipin Owens, ROBERTO is Primary Nurse. rs5 11:41 Triage completed. rs5 11:58 Initial lab(s) drawn, by me, sent to lab. Inserted saline lock: 18 gauge in right zm antecubital area, using aseptic technique. Blood collected. Flushed with 10 mL NS. 11:59 ETOH Level Sent. zm 11:59 BMP Sent. zm 13:40 IV discontinued, intact, bleeding controlled, No redness/swelling at site. Pressure rs5 dressing applied. Administered Medications: 12:00 Drug: NS 0.9% IV 1000 ml IV at 1000 ml once Route: IV; Rate: 1000 ml; Site: left rs5 antecubital; 12:00 Drug: Phenytoin Sodium Extended PO 500 mg PO once Route: PO; rs5 13:00 Follow up: Response: No adverse reaction rs5 Medication: 13:00 VIS not applicable for this client. rs5 Outcome: 13:28 Discharge ordered by . rn 13:40 Discharged to home ambulatory, rs5 13:40 Condition: stable rs5 13:40 Discharge instructions given to patient, family, Instructed on discharge instructions, follow up and referral plans. Demonstrated understanding of instructions, follow-up care, 13:43 Patient left the ED. rs5 Signatures: Kaiser Marie MD MD rn Botello, Elizabeth eb Martinez, Zaina zm Sotelo, Ricky, RN RN rs5 Corrections: (The following items were deleted from the chart) 11:41 11:41 PSHx: Unable to Obtain; rs5 rs5
[2024-02-12 13:46] VITALS: TEMP 97.8; O2SAT 98
[2024-02-12 13:48] VITALS: BP 110/79
--- NOTE | 2024-02-15 10:04 | EKG ---
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
== END 2024-02-12 13:43 | disposition home or self-care (01) ==
LOC: ER 11:32
DX: G40.509 Epileptic seizures related to external causes, not intractable, without status epilepticus (principal); F10.10 Alcohol abuse, uncomplicated
CPT/HCPCS: 36415; 80048; 82077; 93005; 99284; J7030

== ENCOUNTER 2024-02-13 12:03 | Emergency (ER) | payer SELFPAY ==
--- OUTSIDE RECORDS SUMMARY | 2024-02-13 12:08 | XMS REPORT | Continuity of Care Document ---
Author Name Unknown Address [address] [facility] [address] [place] [address] [facility] Address [address] [facility] [address] [place] [address] Care Team Providers Care Windows Administrator Name Role Phone Pcp-None Primary Care Physician Unavailab Rafael Thomas MD Attending Clinician [phone] Sulaiman Hawkins DO Attending Clinician [phone] HEMANT KLEIN Attending Clinician Unavailable Hemant Klein MD Attending Clinician [phone] [place] Attending Clinician Unavailab JESSICA Gallardo Attending Clinician Unavailable Rayray Driscoll MD Attending Clinician +[phone] Jessica Prado MD Attending Clinician [phone] Oswald Murphy MD Attending Clinician [phone] DIYA CHOWDHURY Attending Clinician Unavailab Diya Mackey DO Attending Clinician +[phone] Fidel Cuellar Attending Clinician Unavailable DIRK YARBROUGH Attending Clinician Unavailable Leticia Rowland Attending Clinician [phone] Dirk Yarbrough MD Attending Clinician [phone] Faye Portillo LVN Attending Clinician [phone] Pia Reddy Attending Clinician [phone] Vinnie Navarro Attending Clinician Unavailable OSWALD MURPHY Admitting Clinician Unavailable Oswald Murphy MD Admitting Clinician [phone] DIYA CHOWDHURY Admitting Clinician UnavailLeticia Gaytan Admitting Clinician Unavailable JESSICA PRADO Admitting Clinician Unavailable Jessica Prado MD Admitting Clinician [phone] Payers Payer Name Policy Type Policy Number Effective Date Expirati on Date Source Problems Condition Name Condition Details Condition Category Status Onset Date Resolution Date Last Treatment Date Treating Clinician Comments Source Alcohol withdrawal syndrome with complicati on Alcohol withdrawal syndrome with complicati on Disease Active 2-19 00:00: 00 [facility] Type 2 diabetes mellitus with other specified complicati on Type 2 diabetes mellitus with other specified complicati on Disease Active - 00:00: 00 [facility] Dyslipidem ia Dyslipidem ia Disease Active 12-29 00:00: 00 [facility] Chest pain, unspecifie d type Chest pain, unspecifie d type Disease Active 7- 00:00: 00 [facility] Priapism Priapism Disease Active 2013-06- 00:00: 00 [facility] Allergies, Adverse Reactions, Alerts Allergy Name Allergy Type Status Severity Reaction(s) Onset Date Inactive Date Treating Clinician Comments Source No Known Drug Allergie s DA Active U 4-25 00:00: 00 [facility] No Known Drug Allergie s DA Active U 0 9-16 00:00: 00 [facility] No Known Drug Allergie s DA Active U 3-29 00:00: 00 [facility] No Known Drug Allergie s DA Active U 2019-06 2-16 00:00: 00 [facility] No Known Drug Allergie s DA Active U 2019-06 2-15 00:00: 00 [facility] No Known Drug Allergie s DA Active U 2019-06 00:00: 00 [facility] Trazodon e Propensi ty to adverse reaction s Active Other - See comments 10-06 00:00: 00 [facility] TRAZODON E DRUG INGREDI Active Other-Cmnt 10-06 00:00: 00 [facility] Social History Social Habit Start Date Stop Date Quantity Comments Source History of tobacco use Cigarette Smoker [facility] Al[facility] beverage intake 2023-11-07 00:00:00 2023-11-07 00:00:00 Current drinker of alcohol (finding) [facility] History of Social function 2023-11-07 00:00:00 2023-11-07 00:00:00 [facility] Exposure to SARS-CoV-2 (event) 2022-11-01 00:00:00 2022-11-11 13:57:00 Not sure [facility] Tobacco use and exposure 2022-08-10 00:00:00 2022-08-10 00:00:00 User of smokeless tobacco [facility] Alcohol intake 2022-08-10 00:00:00 2022-08-10 00:00:00 Current drinker of alcohol (finding) [facility] Tobacco Comment 2022-08-10 00:00:00 2022-08-10 00:00:00 1/2 a pack a day [facility] Sex assigned at 1970 00:00:00 1970 00:00:00 [facility] Smoking Status Start Date Stop Date Source Smokes tobacco daily 2022-08-10 00:00:00 [facility] Medications Ordered Medication Name Filled Medication Name Start Date Stop Date Current Medication? Ordering Clinician Indication Dosage Frequency Signature (SIG) Comments Components Source NaCl 0.9% (NS) bolus infusion 1,000 mL 11-11 19:45: 00 11-11 20:23 :00 No 1000mL at 999 mL/hr, 1,000 mL, IV Piggyback, ONCE, 1 dose, On Thu11/11/22 at 1445, STAT [facility] multivitami n tablet 1 tablet 08-12 15:00: 00 Yes 1{tbl} 1 tablet, Oral, DAILY, First dose on Thu08/12/22 at 0900, Until Discontinu ed, Routine [facility] foLIC acid (FOLATE) tablet 1 mg 08-12 15:00: 00 Yes 1mg 1 mg, Oral, DAILY, First dose on Thu08/12/22 at 0900, Until Discontinu ed, Routine [facility] foLIC acid 1 mg tablet 08-12 00:00: 00 09-12 04:59 :00 No [id number] 1mg Take 1 tablet by mouth in the morning for 30 days. [facility] oxazepam (SERAX) capsule 15 mg 08-11 [...] Thu08/13/22 at 0600, Routine [Order 2 End] [facility] thiamine (VITAMIN B1) tablet 100 mg 08-11 16:15: 00 Yes 100mg 100 mg, Oral, DAILY, First dose on Thu08/11/22 at 1015, Until Discontinu ed, Routine [facility] enoxaparin (LOVENOX) injection 40 mg 08-10 23:00: 00 Yes 40mg 40 mg, Subcutaneo us, DAILY, First dose on Thu08/10/22 at 1700, Until Discontinu ed, Routine [facility] NaCl 0.9% (NS) IV infusion 1,000 mL 08-10 15:00: 00 Yes 1000mL at 125 mL/hr, IV Infusion, CONTINUOUS , Starting on Thu08/10/22 at 0900, Until Discontinu ed, Routine [facility] foLIC acid (FOLATE) 5 mg in NaCl 0.9% (NS) piggyback 08-10 15:00: 00 08-11 16:14 :47 No 5mg IV Piggyback, DAILY, First dose on Thu08/10/22 at 0900, Until Discontinu ed, 50 mL [facility] thiamine (VITAMIN B1) 100 mg in NaCl 0.9% (NS) piggyback 08-10 15:00: 00 08-10 16:08 :00 No 100mg IV Piggyback, DAILY, 1 dose, First dose on Thu08/10/22 at 0900, 50 mL [facility] LORazepam (ATIVAN) injection 2 mg 08-10 14:52: 57 Yes 2mg 2 mg, Slow IV Push, Q4HPRN, Starting on Thu08/10/22 at 0852, Until Discontinu ed, Routine, Seizures, Agitation, Anxiety [facility] Sliding Scale Insulin-Reg ular + Fsbg Testing 08-10 13:30: 00 Yes Subcutaneo us, AC+HS, First dose on Thu08/10/22 at 0730, Until Discontinu ed, Routine [facility] oxazepam (SERAX) capsule 15 mg 08-10 12:08: 05 Yes 15mg 15 mg, Oral, Q4HPRN, Starting on Thu08/10/22 at 0608, Until Discontinu ed, Routine, Only while awake for DBP equal to or greater than 100, HR equal to or greater than 100. [facility] dextrose 10% (D10W) bolus infusion 250 mL [...] blood glucose is < 80 mg/dL, repeat.
[facility] glucagon (GLUCAGEN DIAGNOSTIC KIT) injection 1 mg 08-10 12:03: 20 Yes 1mg 1 mg, Intramuscu lar, PRN, Starting on Thu08/10/22 at 0603, Until Discontinu ed, JACIEL, Blood Glucose < or = 70 mg/dL and patient is NPO, unable to swallow or has mental changes. [facility] ondansetron (ZOFRAN (PF)) injection 4 mg 08-10 12:02: 53 Yes 4mg 4 mg, Slow IV Push, Q6HPRN, Starting on Thu08/10/22 at 0602, Until Discontinu ed, Routine, Nausea and Vomiting (N/V) [facility] ibuprofen (MOTRIN IB) tablet 200 mg 08-10 12:02: 45 Yes 200mg 200 mg, Oral, Q6HPRN, Starting on Thu08/10/22 at 0602, Until Discontinu ed, Routine, Pain (scale 1-3) [facility] NaCl 0.9% (NS) bolus infusion 1,000 mL 08-10 10:15: 00 08-10 13:00 :00 No 1000mL at 999 mL/hr, 1,000 mL, IV Infusion, ONCE, 1 dose, On Thu08/10/22 at 0415, STAT [facility] LORazepam (ATIVAN) injection 0.5 mg 08-10 09:15: 00 08-10 09:19 :00 No .5mg 0.5 mg, Slow IV Push, ONCE, 1 dose, On Thu08/10/22 at 0315, STAT [facility] LORazepam (ATIVAN) injection 1 mg 08-10 08:00: 00 08-10 07:05 :00 No 1mg 1 mg, Slow IV Push, ONCE NOW, 1 dose, On 08/10/22 at 0200, STAT [facility] thiamine (VITAMIN B1) injection 100 mg 08-10 06:45: 00 08-10 06:52 :00 No 100mg 100 mg, Intravenou s, ONCE, 1 dose, [facility]22 [facility] 0045[facility] 1 mg 08-10 05:15: 00 08-10 05:22 :00 No 1mg 1 mg, Slow IV Push, ONCE, 1 dose, On 08/09/22 at 2315, STAT [facility] ketorolac (TORADOL) injection 15 mg 2021-06 0-16 16:00: 00 04-06 14:50 :00 No 15mg 15 mg, Slow IV Push, ONCE, 1 dose, On 04/06/22 at 1100, [facility] ondansetron (ZOFRAN (PF)) injection 4 mg 2021-06 0-16 15:45: 00 04-06 14:50 :00 No 4mg 4 mg, Slow IV Push, ONCE, 1 dose, On 04/06/22 at 1045, [facility] oxazepam (SERAX) capsule 15 mg 12-31 06:28: 17 01-01 06:29 :00 No 15mg 15 mg, Oral, Q12H TAPER, 2 doses, First dose on Thu12/31/21 at 0130, Last dose on Thu12/31/21 at 1330, Routine [facility] multivitami n tablet 12-31 00:00: 00 Yes [id number] 1{tbl} Take 1 tablet by mouth in the morning. [facility] thiamine 100 mg tablet 12-31 00:00: 00 Yes [id number] 100mg Take 1 tablet by mouth in the morning. [facility] aspirin 81 mg chewable tablet 12-31 00:00: 00 Yes [id number] 81mg Take 1 tablet by mouth in the morning. [facility] foLIC acid 1 mg tablet 12-31 00:00: 00 01-31 04:59 :00 No [id number] 1mg Take 1 tablet by mouth in the morning for 30 days. [facility] metFORMIN 500 mg tablet 12-30 00:00: 00 Yes [id number] 500mg Take 1 tablet by mouth in the morning and 1 tablet in the evening. Take with meals. [facility] aspirin chewable tablet 81 mg 12-29 14:00: 00 Yes 81mg 81 mg, Oral, DAILY, First dose on Thu12/29/21 at 0900, Until Discontinu ed, Routine [facility] sulfur hexafluorid e microsphr (LUMASON) injection 5 mL 12-29 13:45: 00 12-29 13:45 :00 No [id number] 5mL 5 mL, Intravenou s, ONCE, 1 dose, On 12/29/21 at 0845, Routine
tribal council member approving Restricted medication : STEFANIE GORMAN [facility] enoxaparin (LOVENOX) injection 40 mg 12-29 13:00: 00 Yes 40mg 40 mg, Subcutaneo us, Q24H, First dose on Thu12/29/21 at 0800, Until Discontinu ed, Routine [facility] Sliding Scale Insulin - Lispro (HumaLOG) + Fsbg Testing 12-29 13:00: 00 Yes Subcutaneo us, TID MEALS+HS, First dose on Thu12/29/21 at 0800, Until Discontinu ed, Routine [facility] diazePAM (VALIUM) injection 10 mg 12-29 05:30: 00 12-29 04:40 :00 No 10mg 10 mg, Intravenou s, ONCE, 1 dose, On Thu12/29/21 at 0030, Routine [facility] diazePAM (VALIUM) injection 10 mg 12-29 04:15: 00 12-29 03:17 :00 No 10mg 10 mg, Intravenou s, ONCE, 1 dose, On 12/28/21 at 2315, Routine [facility] diazePAM (VALIUM) injection 5 mg 12-29 03:45: 01 Yes 5mg 5 mg, Intravenou s, QIDPRN, Starting on 12/28/21 at 2245, Until Discontinu ed, Routine, Seizures, Agitation [facility] foLIC acid (FOLATE) tablet 1 mg 12-29 03:45: 00 Yes 1mg 1 mg, Oral, DAILY, First dose on 12/28/21 at 2245, Until Discontinu ed, Routine [facility] thiamine (VITAMIN B1) tablet 100 mg 12-29 03:45: 00 Yes 100mg 100 mg, Oral, DAILY, First dose (after last modificati on) on 12/28/21 at 2245, Until Discontinu ed, Routine [facility] glucagon (GLUCAGEN DIAGNOSTIC KIT) injection 1 mg 12-29 03:42: 19 Yes 1mg 1 mg, Intramuscu lar, PRN, Starting on 12/28/21 at 2242, Until Discontinu ed, JACIEL, Blood Glucose < or = 70 mg/dL and patient is unable to swallow or has mental changes. [facility] dextrose 10% (D10W) bolus infusion 250 [...] blood glucose is < 80 mg/dL, repeat.
[facility] LORazepam (ATIVAN) injection 1 mg 12-29 03:30: 00 12-29 02:32 :00 No 1mg 1 mg, Intravenou s, ONCE, 1 dose, On 12/28/21 at 2230, Routine
Is the medication being used for status epilepticu s? No [facility] oxazepam (SERAX) capsule 15 mg 12-29 00:28: 20 Yes 15mg 15 mg, Oral, Q4HPRN, Starting on 12/28/21 at 1928, Until Discontinu ed, Routine, Only while awake for DBP equal to or greater than 100, HR equal to or greater than 100. [facility] ondansetron (ZOFRAN (PF)) injection 4 mg 12-29 00:23: 47 Yes 4mg 4 mg, Slow IV Push, Q6HPRN, Starting on 12/28/21 at 1923, Until Discontinu ed, Routine, Nausea and Vomiting (N/V) [facility] acetaminoph en (TYLENOL) tablet 650 mg 12-29 00:23: 37 Yes 650mg 650 mg, Oral, Q6HPRN, Starting on 12/28/21 at 1923, Until Discontinu ed, Routine, Pain (scale 1-3), Temp > 38.5 C [facility] chlordiazeP OXIDE (LIBRIUM) capsule 25 mg 12-28 23:15: 00 12-28 23:24 :00 No 25mg 25 mg, Oral, ONCE, 1 dose, On 12/28/21 at 1815, [facility] NaCl 0.9% (NS) bolus infusion 2,000 mL 12-28 22:45: 00 12-28 23:18 :00 No 2000mL at 999 mL/hr, 2,000 mL, IV Infusion, ONCE, 1 dose, On 12/28/21 at 1745, JACIEL [facility] LORazepam (ATIVAN) injection 1 mg 12-28 20:45: 00 12-28 20:49 :00 No 1mg 1 mg, Slow IV Push, ONCE, 1 dose, On 12/28/21 at 1545, STAT
Is the medication being used for status epilepticu s? No [facility] acetaminoph en (TYLENOL) 500 mg tablet 10-06 00:00: 00 Yes 500mg Take 1 Tab by mouth every 6 (six) hours as needed for Pain. [facility] Vital Signs Vital Name Observation Time Observation Value Comments S ource Systolic blood pressure 2023-12-13 05:16:00 125 mm[Hg] [facility] Diastolic blood pressure 2023-12-13 05:16:00 90 mm[Hg] [facility] Heart rate 2023-12-13 05:16:00 77 /min [facility] Body temperature 2023-12-13 05:16:00 36.06 Theresa [facility] Respiratory rate 2023-12-13 05:16:00 16 /min [facility] Oxygen saturation in Arterial blood by Pulse oximetry 2023-12-13 05:16:00 98 /min [facility] Body height 2023-12-13 01:35:00 157.5 cm [facility] Body weight 2023-12-13 01:35:00 65.772 kg [facility] BMI 2023-12-13 01:35:00 26.52 kg/m2 [facility] Systolic blood pressure 2023-11-05 21:00:00 106 mm[Hg] [facility] Diastolic blood pressure 2023-11-05 21:00:00 70 mm[Hg] [facility] Heart rate 2023-11-05 21:00:00 74 /min [facility] Body temperature 2023-11-05 21:00:00 36.5 Theresa [facility] Respiratory rate 2023-11-05 21:00:00 21 /min [facility] Oxygen saturation in Arterial blood by Pulse oximetry 2023-11-05 21:00:00 98 /min [facility] Body height 2023-11-05 19:59:00 160 cm [facility] Body weight 2023-11-05 19:59:00 63.504 kg [facility] BMI 2023-11-05 19:59:00 24.80 kg/m2 [facility] Systolic blood pressure 2022-11-11 20:31:31 116 mm[Hg] [facility] Diastolic blood pressure 2022-11-11 20:31:31 77 mm[Hg] [facility] Heart rate 2022-11-11 20:31:31 84 /min [facility] Respiratory rate 2022-11-11 20:31:31 12 /min [facility] Oxygen saturation in Arterial blood by Pulse oximetry 2022-11-11 20:31:31 90 /min [facility] Body temperature 2022-11-11 18:49:00 37.11 Theresa [facility] Body height 2022-11-11 18:49:00 160 cm [facility] Body weight 2022-11-11 18:49:00 68.04 kg [facility] BMI 2022-11-11 18:49:00 26.57 kg/m2 [facility] Body temperature 2022-08-11 14:00:00 36.5 Theresa [facility] Systolic blood pressure 2022-08-11 10:00:00 116 mm[Hg] [facility] Diastolic blood pressure 2022-08-11 10:00:00 71 mm[Hg] [facility] Heart rate 2022-08-11 10:00:00 70 /[facility] Respiratory rate 2022-08-11 10:00:00 16 /min [facility] Body weight 2022-08-11 10:00:00 65.499 kg [facility] BMI 2022-08-11 10:00:00 25.58 kg/m2 [facility] Oxygen saturation in Arterial blood by Pulse oximetry 2022-08-11 10:00:00 100 /min [facility] Body height 2022-08-10 22:12:00 160 cm [facility] Systolic blood pressure 2022-04-06 16:00:00 125 mm[Hg] [facility] Diastolic blood pressure 2022-04-06 16:00:00 75 mm[Hg] [facility] Heart rate 2022-04-06 16:00:00 87 /min [facility] Respiratory rate 2022-04-06 16:00:00 22 /min [facility] Oxygen saturation in Arterial blood by Pulse oximetry 2022-04-06 16:00:00 98 /min [facility] Body temperature 2022-04-06 14:41:00 37 Theresa [facility] Body height 2022-04-06 14:41:00 160 cm [facility] [...] Heart rate 2022-01-20 02:27:00 79 /min [facility] Respiratory rate 2022-01-20 02:27:00 12 /min [facility] Oxygen saturation in Arterial blood by Pulse oximetry 2022-01-20 02:27:00 98 /min [facility] Body temperature 2022-01-19 22:19:00 36.44 Theresa [facility] Body weight 2022-01-19 22:19:00 60.328 kg [facility] BMI 2022-01-19 22:19:00 23.56 kg/m2 [facility] Systolic blood pressure 2021-12-30 20:52:00 134 mm[Hg] [facility] Diastolic blood pressure 2021-12-30 20:52:00 76 mm[Hg] [facility] Heart rate 2021-12-30 20:52:00 67 /min [facility] Body temperature 2021-12-30 20:26:00 36.67 Theresa [facility] Oxygen saturation in Arterial blood by Pulse oximetry 2021-12-30 20:26:00 99 /min [facility] Respiratory rate 2021-12-30 16:21:00 18 /min [facility] Body weight 2021-12-30 08:27:00 60.464 kg [facility] BMI 2021-12-30 08:27:00 23.61 kg/m2 [facility] Body height 2021-12-29 01:29:00 160 cm [facility] Procedures Procedure Date / Time Performed Performing Clinician Source TROPONIN I 2023-12-13 03:32:00 Rafael Byrd [facility] XR CHEST 1 VW 2023-12-13 02:18:14 Rafael Byrd [facility] LIPASE 2023-12-13 02:07:00 Rafael Byrd [facility] TROPONIN I 2023-12-13 02:07:00 Rafael Byrd [facility] COMP. METABOLIC PANEL ([id number]) 2023-12-13 02:07:00 Rafael Byrd [facility] CBC WITH DIFF 2023-12-13 02:07:00 Rafael Byrd [facility] XR CHEST 1 VW 2023-11-05 20:09:00 Sulaiman Hawkins [facility] LIPASE 2023-11-05 20:01:00 Sulaiman Hawkins [facility] MAGNESIUM 2023-11-05 20:01:00 Sulaiman Hawkins [facility] TROPONIN I 2023-11-05 20:01:00 [facility] COMP. METABOLIC PANEL ([id number]) 2023-11-05 20:01:00 Sulaiman Hawkins [facility] CBC WITH DIFF 2023-11-05 20:01:00 Sulaiman Hawkins [facility] N-TERMINAL PRO-BNP 2023-11-05 20:01:00 Sulaiman Hawkins [facility] MAGNESIUM 2022-11-11 19:05:00 Jessica [facility] BASIC METABOLIC PANEL (NA, K, CL, CO2, GLUCOSE, BUN, CREATININE, CA) 2022-11-11 19:05:00 [facility] 2022-11-11 19:05:00 Jessica [facility] CBC WITH DIFF 2022-11-11 19:05:00 Hemant Klein [facility] POCT GLUCOSE (AUTOMATED) 2022-08-11 13:36:00 Arvind Prado [facility] PHOSPHORUS 2022-08-11 10:35:00 [facility] MAGNESIUM 2022-08-11 10:35:00 [facility] AMMONIA, PLASMA 2022-08-11 10:35:00 Jessica Prado [facility] COMP. METABOLIC PANEL ([id number]) 2022-08-11 10:35:00 Eve [facility] CBC WITH DIFF 2022-08-11 10:35:00 Oswald Murphy [facility] POCT GLUCOSE (AUTOMATED) 2022-08-11 02:15:00 Arvind Prado [facility] POCT GLUCOSE (AUTOMATED) 2022-08-10 23:10:00 Arvind Prado [facility] POCT GLUCOSE (AUTOMATED) 2022-08-10 18:20:00 Arvind Prado [facility] POCT GLUCOSE (AUTOMATED) 2022-08-10 14:11:00 Arvind Prado [facility] POCT GLUCOSE (AUTOMATED) 2022-08-10 10:59:00 Gopal Driscoll [facility] COVID-19 (ID NOW RAPID TESTING) 2022-08-10 07:17:00 Rayray Driscoll [facility] LAB ONLY COVID INTERPRETATION 2022-08-10 07:17:00 Rayray Driscoll [facility] HB ECG ROUTINE & RHYTHM STRIP 2022-08-10 06:03:48 Rayray Driscoll [facility] URINALYSIS 2022-08-10 05:46:00 [facility] URINE DRUG (IMMUNOASSAY) - COMPREHENSIVE DRUG SCREEN W/O REFLEX 2022-08-10 05:45:00 Rayray Driscoll [facility] CREATINE KINASE 2022-08-10 05:16:00 [facility] 2022-08-10 05:16:00 [facility] MAGNESIUM 2022-08-10 05:16:00 Rayray Driscoll [facility] TROPONIN I 2022-08-10 05:16:00 Rayray Driscoll [facility] COMP. METABOLIC PANEL ([id number]) 2022-08-10 05:16:00 Rayray Driscoll [facility] ETHANOL 2022-08-10 05:16:00 Rayray Driscoll [facility] CBC WITH DIFF 2022-08-10 05:16:00 Rayray Driscoll [facility] N-TERMINAL PRO-BNP 2022-08-10 05:16:00 Rayray Driscoll [facility] CRITICAL CARE 2022-08-10 04:52:00 Rayray Driscoll [facility] XR CHEST 1 VW 2022-04-06 14:51:50 Diya Chowdhury [facility] LIPASE 2022-04-06 14:42:00 Diya Chowdhury [facility] TROPONIN I 2022-04-06 14:42:00 Diya Chowdhury [facility] COMP. METABOLIC PANEL ([id number]) 2022-04-06 14:42:00 Diya Chowdhury [facility] CBC WITH DIFF 2022-04-06 14:42:00 Diya Chowdhury [facility] PROTHROMBIN TIME / INR 2022-04-06 14:42:00 Diya Chowdhury [facility] ACTIVATED PARTIAL THRMPLAS NELDA 2022-04-06 14:42:00 Luciana [facility] LACTIC ACID WHOLE BLOOD 2022-01-20 00:22:00 Leticia Baldwin [facility] URINE DRUG (IMMUNOASSAY) - COMPREHENSIVE DRUG SCREEN 2022-01-19 23:10:00 Leticia Baldwin [facility] URINALYSIS 2022-01-19 23:10:00 Leticia Baldwin [facility] TROPONIN I 2022-01-19 23:00:00 [facility] COMP. METABOLIC PANEL ([id number]) 2022-01-19 23:00:00 Leticia Baldwin [facility] [place] LITHIUM 2022-01-19 23:00:00 [facility] ETHANOL 2022-01-19 23:00:00 [facility] CBC WITH DIFF 2022-01-19 23:00:00 Leticia Baldwin [facility] COVID-19 (ID NOW RAPID TESTING) 2022-01-19 23:00:00 Leticia Baldwin [facility] CT HEAD WO CONTRAST 2022-01-19 22:49:00 Leticia Baldwin [facility] XR CHEST 1 VW 2022-01-19 22:41:00 Leticia Baldwin [facility] POCT GLUCOSE (AUTOMATED) 2022-01-19 22:25:00 Leticia Baldwin [facility] POCT GLUCOSE (AUTOMATED) 2021-12-30 21:55:00 Arvind Prado [facility] POCT GLUCOSE (AUTOMATED) 2021-12-30 16:21:00 Arvind Prado [facility] POCT GLUCOSE (AUTOMATED) 2021-12-30 12:30:00 Arvind Prado [facility] HEPATIC FUNCTION PANEL (84478) (ALB,T.PRO,BILI T,BU/BC,ALT,AST,ALK PHOS) 2021-12-30 09:28:00 Maira Gaitan [facility] POCT GLUCOSE (AUTOMATED) 2021-12-30 02:11:00 Arvind Prado [facility] POCT GLUCOSE (AUTOMATED) 2021-12-29 21:41:00 Arvind Prado [facility] POCT GLUCOSE (AUTOMATED) 2021-12-29 16:37:00 Arvind Prado [facility] TRANSTHORACIC ECHO (TTE) COMPLETE W/ CONTRAST 2021-12-29 13:05:00 Jessica Prado [facility] POCT GLUCOSE (AUTOMATED) 2021-12-29 12:41:00 Arvind Prado [facility] TROPONIN I 2021-12-29 09:42:00 [facility] TROPONIN I 2021-12-29 04:55:[address] [facility] [address] HEAD WO CONTRAST 2021-12-28 21:18:22 Poppy Renteria [facility] AMMONIA, PLASMA 2021-12-28 21:00:00 Pia Renteria [facility] COVID-19 (ID NOW RAPID TESTING) 2021-12-28 20:42:00 Pia Renteria [facility] LAB ONLY COVID INTERPRETATION 2021-12-28 20:42:00 Pia Renteria [facility] URINE DRUG (IMMUNOASSAY) - COMPREHENSIVE DRUG SCREEN W/O REFLEX 2021-12-28 20:42:00 Pia Renteria [facility] URINALYSIS 2021-12-28 20:40:00 Pia Renteria [facility] N-TERMINAL PRO-BNP 2021-12-28 20:40:00 Corina Renteria [facility] TROPONIN I 2021-12-28 20:40:00 Pia Renteria [facility] THYROID STIMULATING HORMONE 2021-12-28 20:40:00 Jessica Prado [facility] COMP. METABOLIC PANEL (33050) 2021-12-28 20:40:00 Pia Renteria [facility] LIPID PANEL (31288)(TOTAL CHOLESTEROL, TRIGLYCERIDES, HDL) 2021-12-28 20:40:00 Demetrius Langford [facility] ETHANOL 2021-12-28 20:40:00 Demetrius Langford [facility] CBC WITH DIFF 2021-12-28 20:40:00 Pia Renteria [facility] GLYCOSYLATED HEMOGLOBIN (A1C) 2021-12-28 20:40:00 Jessica Prado [facility] PROTHROMBIN TIME / INR 2021-12-28 20:40:00 Lesly Renteria [facility] XR CHEST 1 VW 2021-12-28 20:16:00 Pia Renteria [facility] HB ECG ROUTINE & RHYTHM STRIP 2021-12-28 20:04:59 Pia Renteria [facility] Encounters Start Date/Time End Date/Time Encounter Type Admission Type Attending [facility] Care Facility Care Department Encounter ID Source 2021-09-17 16:45:00 Inpatient [facility] [id number] [facility] 2020-06-06 16:07:00 Inpatient [facility] [id number] [facility] 2020-06-06 06:20:00 Inpatient [facility] [id number] [facility] 2020-06-05 19:35:00 Inpatient [facility] [id number] [facility] 2020-05-23 19:53:00 Inpatient [facility] [id number] [facility] 2020-05-23 19:53:00 Inpatient [facility] [id number] [facility] 2023-12-12 20:44:00 2023-12-13 00:22:00 Emergency Rafael Byrd [facility] 1.2.840.114 350.1.13.10 4.2.7.2.686 [id number] [facility] 2023-11-05 14:54:00 2023-11-05 16:27:00 Emergency Sulaiman Hawkins [facility] 1.2.840.114 350.1.13.10 4.2.7.2.686 [id number] [facility] 2022-11-11 13:50:00 2022-11-11 16:07:00 Emergency X HEMANT KLEIN [facility] E[facility] [id number] [facility] 2022-11-11 13:50:00 2022-11-11 16:07:00 Emergency Hemant Klein [facility] 1.2.840.114 350.1.13.10 4.2.7.2.686 [id number] [facility] 2022-10-14 20:59:00 2022-10-14 20:59:00 Emergency [facility] [id number] [facility] 2022-10-14 20:59:00 2022-10-14 20:59:00 Emergency Emergency Pan Pinto [facility] [id number] [facility] 2022-08-09 22:59:00 2022-08-11 13:02:00 Outpatient X JESSICA PRADO [facility] [id number] [facility] 2022-08-09 22:59:00 2022-08-11 13:02:00 Emergency Mukund DriscollJessica Avilez [facility] 1.2.840.114 350.1.13.10 4.2.7.2.686 [id number] [facility] 2022-04-06 09:38:00 2022-04-06 11:42:00 Emergency X DIYA CHOWDHURY [facility] E[facility] [id number] [facility] 2022-04-06 09:38:00 2022-04-06 11:42:00 Emergency Toddjose l Diya [facility] 1.2.840.114 350.1.13.10 4.2.7.2.686 [id number] [facility] 2022-03-07 12:38:00 2022-03-07 12:38:00 Emergency [facility] [id number] [facility] 2022-03-07 12:38:00 2022-03-07 12:38:00 Emergency Emergency Fidel Cuellar [facility] [id number] [facility] 2022-01-19 17:18:00 2022-01-19 22:00:00 Emergency X DIRK YARBROUGH [facility] E[facility] [id number] [facility] 2022-01-19 17:18:00 2022-01-19 22:00:00 Emergency Nicolasa Leticia Dirk Sutton [facility] 1.2.840.114 350.1.13.10 4.2.7.2.686 [id number] [facility] 2021-12-31 00:00:00 2021-12-31 00:00:00 Transition of Care Bandar Faye MIKMarlon MASSIEL NAVARRO 1.2.840.114 350.1.13.10 4.2.7.2.686 [id number] [facility] 2021-12-28 14:53:00 2021-12-30 17:42:00 Inpatient X JESSICA PRADO [facility] [id number] [facility] 2021-12-28 14:53:00 2021-12-30 17:42:00 Hospital Encounter Pia Renteria Jelani [facility] 1.2.840.114 350.1.13.10 4.2.7.2.686 [id number] [facility] 2021-09-17 16:47:00 2021-09-17 16:47:00 Emergency [facility] [id number] [facility] 2020-06-06 16:07:00 2020-06-06 16:07:00 Emergency [facility] [id number] [facility] Results Test Description Test Time Test Comments Results Result Co mments Source [facility] [id number] 02:57:27* Test Item Value Reference Range Interpretation Comme nts TROPONIN I (test code = 7795721425) 0.003 ng/mL <=0.034 JUAN ALBERTO (test code [...] of biotin. Lab Interpretation (test code = 42887-2) Normal [facility]. METABOLIC PANEL (77395)2023-12-13 02:46:25* Test Item Value Reference Range Interpretation Comme nts NA (test code = 7068277650) 144 mmol/L 135-145 K (test code = 5708203075) 3.9 mmol/L 3.5-5.0 CL (test code = 6036536684) 110 mmol/L 98-108 H CO2 TOTAL (test code = 2325470893) 20 mmol/L 23-31 L AGAP (test code = 4415199749) 14 2-16 BUN (test code = 1776351418) 13 mg/dL 7-23 GLUCOSE (test code = 5643129730) 163 mg/dL 70-110 H CREATININE (test code = 2160-0) 0.63 mg/dL 0.60-1.25 TOTAL BILI (test code = 8155560538) 0.3 mg/dL 0.1-1.1 CALCIUM (test code = 7760649142) 9.0 mg/dL 8.6-10.6 T PROTEIN (test code = 4434983414) 7.2 g/dL 6.3-8.2 ALBUMIN (test code = 7506548154) 4.1 g/dL 3.5-5.0 ALK PHOS (test code = 1792762152) 129 U/L 34-122 H ALTv (test code = 1742-6) 15 U/L 5-50 AST(SGOT) (test code = 3948441957) 34 U/L 13-40 eGFR (test code = 52503-4) 113.7 mL/min/1.73m2 CKD-EPI eGFR (2020). Assuming creatinine has been stable day-to-day for at least three months, the eGFR indicates Category G1 (>= 90 mL/min/1.73 m2) Lab Interpretation (test code = 32684-6) [facility] [id number] 02:45:25* Test Item Value Reference Range Interpretation Comme nts LIPASE (test code = 5092194374) 47 U/L 0-220 Lab Interpretation (test cod e = 58492-4) Normal [facility] 1 [id number] 02:40:35History: chest pain . Exam: XR CHEST 1 VW Date: 12/12/2023 9:15 PM Ordering provider: RAFAEL BYRD Technical quality: Adequate Comparison: 11/05/2023. Findings: Frontal view of the chest is obtained. The cardiac silhouette is normal in size. No evidence of infiltrate,pleural effusion, CHF, or pneumothorax.[facility] [id number] 02:33:48* Test Item Value Reference Range Interpretation [...] 33.2 g/dL 31.2-35.0 RDW-SD (test code = 83276-1) 54.4 fL 38.5-51.6 H RDW-CV (test code = 788-0) 15.9 % 12.1-15.4 H PLT (test code = 777-3) 318 150-328 MPV (test code = 86272-8) 8.5 fL 9.8-13.0 L NRBC/100 WBC (test code = 6098214224) 0.0 0.0-10.0 NRBC x10^3 (test code = 6205943153) See_Comment [Automated messa ge] The system which generated this result transmitted reference range: 10*3/?L. The reference range was not used to interpret this result as normal/abnormal. GRAN MAT (NEUT) % (test code = 770-8) 50.1 % IMM GRAN % (test code = 6553974585) 0.40 % LYMPH % (test code = 736-9) 37.6 % MONO % (test code = 5905-5) 6.8 % EOS % (test code = 713-8) 4.1 % BASO % (test code = 706-2) 1.0 % GRAN MAT x10^3(ANC) (test code = 7989427989) 3.66 10*3/uL 1.99-6.95 IMM GRAN x10^3 (test code = 2843282235) 0.03 10*3/uL 0.00-0.06 LYMPH x10^3 (test code = 731-0) 2.75 10*3/uL 1.09-3.23 MONO x10^3 (test code = 742-7) 0.50 10*3/uL 0.36-1.02 EOS x10^3 (test code = 711-2) 0.30 10*3/uL 0.06-0.53 BASO x10^3 (test code = 704-7) 0.07 10*3/uL 0.01-0.09 Lab Interpretation (test code = 25361-0) Abnormal [facility] 1 [id number] 20:15:30HISTORY: Chest pain. TECHNIQUE: Portable AP view of the chest is obtained. Comparison is beingmade with 04/06/2022 study. FINDINGS: No acute pneumonia. No pneumothorax or pleural effusion orpulmonarycongestion detected. Cardiac size is within normal limits.Prominent osteophytes are seen along right left vertebral margins at middleand lower thoracic spines. CONCLUSIONS: No signs of acute cardiopul monary disease.[facility] 19:45:56 ALCOHOL<10mg/dL11/11/2022 2:45 PM [facility]<10 Cffplsox67-161 Toxic>100 Depression of TERMINAL WORKER>400 [facility] (NA, K, CL, CO2, GLUCOSE, BUN, CREATININE, CA)2022-11-11 19:41:47* Test Item Value Reference Range Interpretation Comme nts NA (test code = 8698644824) 138 mmol/L 135-145 K (test code = 8526248855) 4.8 mmol/L 3.5-5.0 CL (test code = 7166819164) 103 mmol/L 98-108 CO2 TOTAL (test code = 4125140020) 26 mmol/L 23-31 AGAP (test code = 5605590675) 9 2-16 BUN (test code = 6474091510) 17 mg/dL 7-23 GLUCOSE (test code = 9910601008) 219 mg/dL 70-110 H CREATININE (test code = 0183824919) 0.72 mg/dL 0.60-1.25 CALCIUM (test code = 6307754057) 10.0 mg/dL 8.6-10.6 eGFR (test code = 6544273943) 114.6 mL/min/1.73m2 JUAN ALBERTO (test code = [...] imaging tests). Lab Interpretation (test code = 70448-1) Abnormal [facility]20[facility]-23 19:41:47* Test Item Value Reference Range Interpretation Comme nts MAGNESIUM (test code = 2633122283) 1.8 mg/dL 1.7-2.4 Lab Interpretation (test cod e = 62289-3) Normal [facility] WITH [id number] 19:25:26* Test Item Value Reference Range Interpretation Comme nts WBC (test code = 6690-2) 6.82 See_Comment [Automated [employer]] The system which generated this result transmitted reference range: 4.20 - 10.70 10*3/?L. The reference range was not used to interpret this result as normal/abnormal. RBC (test code = 789-8) 4.98 See_Comment [Automated [employer]] The system which generated this result transmitted [...] 33.9 g/dL 31.2-35.0 RDW-SD (test code = 23223-7) 46.0 fL 38.5-51.6 RDW-CV (test code = 788-0) 13.5 % 12.1-15.4 PLT (test code = 777-3) 237 See_Comment [Automated [employer]] The system which generated this result transmitted reference range: 150 - 328 10*3/?L. The reference range was not used to interpret this result as normal/abnormal. MPV (test code = 86693-6) 8.9 fL 9.8-13.0 L NRBC/100 WBC (test code = 4309662388) 0.0 See_Comment [Automated me ssage] The system which generated this result transmitted reference range: 0.0 - 10.0 /100 WBCs. The reference range was not used to interpret this result as normal/abnormal. NRBC x10^3 (test code = 6337477203) See_Comment [Automated messa ge] The system which generated this result transmitted reference range: 10*3/?L. The reference range was not used to interpret this result as normal/abnormal. GRAN MAT (NEUT) % (test code = 770-8) 71.2 % IMM GRAN % (test code = 8941020943) 0.30 % LYMPH % (test code = 736-9) 18.2 % MONO % (test code = 5905-5) 8.4 % EOS % (test code = 713-8) 1.0 % BASO % (test code = 706-2) 0.9 % GRAN MAT x10^3(ANC) (test code = 4791105432) 4.86 10*3/uL 1.99-6.95 IMM GRAN x10^3 (test code = 7493124989) 0.00-0.06 LYMPH x10^3 (test code = 731-0) 1.24 10*3/uL 1.09-3.23 MONO x10^3 (test code = 742-7) 0.57 10*3/uL 0.36-1.02 EOS x10^3 (test code = 711-2) 0.07 10*3/uL 0.06-0.53 BASO x10^3 (test code = 704-7) 0.06 10*3/uL 0.01-0.09 Lab Interpretation (test code = 89730-2) Abnormal [facility], Urinalysis Rflx Cult/[id number] 22:20:00* Test Item Value Reference Range Interpretation Comme nts Color,Urine (test code = UCOL) Yellow Yellow Clarity,Urine (test code = UCLAR) Clear Clear Ph, Urine (test code = UPH) 7.0 5.0-9.0 N Specific [place],Urine (test code = USG) 1.020 1.005-1.030 N [...] code = ULEU) Negative mg/dL Negative Drug Screen,[id number] 22:20:00* Test Item Value Reference Range Interpretation [...] UPROP) Negative Negative Complete Blood Count Auto [id number] 21:21:00* Test Item Value Reference Range Interpretation [...] code = NRBCP) 0 % Comprehensive Metabolic [id number] 21:21:00* Test Item Value Reference Range Interpretation [...] a race coefficient. Additional information canbe found at:[email or web address] 5.[email or web address] ([email or web address]) [Automated message] The system [...] = ALP) 134 U/L 46-116 H Ethanol [id number] 21:21:00* Test Item Value Reference Range Interpretation Comme nts Ethanol (test code = ETOH) < 3 mg/dL The pharmacologi yudy response to blood alcohol levels mayvary from individual to individual. The fatal concentrationhas been reported to be >400mg/dL. POCT GLUCOSE (AUTOMATED)2022-08-11 13:40:35* Test Item Value Reference Range Interpretation Comme nts POCT GLU (test code = 3177059225) 121 mg/dL 70-110 H Lab Interpretation (test cod e = 58549-8) Abnormal [facility] GLUCOSE (AUTOMATED)2022-08-11 02:18:58* Test Item Value Reference Range Interpretation Comme nts POCT GLU (test code = 8099435135) 183 mg/dL 70-110 H Lab Interpretation (test cod e = 25332-0) Abnormal [facility] GLUCOSE (AUTOMATED)2022-08-10 23:16:11* Test Item Value Reference Range Interpretation Comme nts POCT GLU (test code = 3745958202) 176 mg/dL 70-110 H Lab Interpretation (test cod e = 36955-3) Abnormal [facility] GLUCOSE (AUTOMATED)2022-08-10 18:22:51* Test Item Value Reference Range Interpretation Comme nts POCT GLU (test code = 4184604421) 165 mg/dL 70-110 H Lab Interpretation (test cod e = 74842-5) Abnormal [facility] GLUCOSE (AUTOMATED)2022-08-10 14:18:05* Test Item Value Reference Range Interpretation Comme nts POCT GLU (test code = 8147048537) 138 mg/dL 70-110 H Lab Interpretation (test cod e = 82625-8) Abnormal [facility] GLUCOSE (AUTOMATED)2022-08-10 11:01:21* Test Item Value Reference Range Interpretation Comme nts POCT GLU (test code = 7576825960) 143 mg/dL 70-110 H Lab Interpretation (test cod e = 76179-9) Abnormal [facility] [id number] 06:51:18* Test Item Value Reference Range Interpretation Comme nts TROPONIN I (test code = 1302441980) 0.008 ng/mL <=0.034 JUAN ALBERTO (test code [...] of biotin. Lab Interpretation (test code = 29195-1) Normal [facility]MIN[facility] [id number] 06:47:37* Test Item Value Reference Range Interpretation Comme nts NT-proBNP (test code = 3102707319) 37 pg/mL <=125 JUAN ALBERTO (test code = JUAN ALBERTO) Biotin has been reported to cause a negative bias, interpret results relative to patient's use of biotin. Lab Interpretation (test code = 86583-0) Normal [facility]2023-02-19 06:25:52 ALCOHOL<10mg/dL08/10/2022 12:25 AM [facility]<10 Goncqfcw29-442 Toxic>100 Depression of TERMINAL WORKER>400 Fatalities [facility]orted[facility]COM. METABOLIC PANEL (13126)2022-08-10 06:19:15* Test Item Value Reference Range Interpretation Comme nts NA (test code = 0952155900) 135 mmol/L 135-145 K (test code = 6263349471) 4.3 mmol/L 3.5-5.0 CL (test code = 6473280813) 98 mmol/L 98-108 CO2 TOTAL (test code = 5490056985) 30 mmol/L 23-31 AGAP (test code = 0534141813) 7 2-16 BUN (test code = 6538534717) 11 mg/dL 7-23 GLUCOSE (test code = 0289109282) 153 mg/dL 70-110 H CREATININE (test code = 0928680612) 0.77 mg/dL 0.60-1.25 TOTAL BILI (test code = 5516336942) 0.9 mg/dL 0.1-1.1 CALCIUM (test code = 9635424173) 10.0 mg/dL 8.6-10.6 T PROTEIN (test code = 2482813495) 7.7 g/dL 6.3-8.2 ALBUMIN (test code = 8707595778) 4.6 g/dL 3.5-5.0 ALK PHOS (test code = 2513408868) 92 U/L 34-122 ALTv (test code = 1742-6) 35 U/L 5-50 AST(SGOT) (test code = 1379892704) 42 U/L 13-40 H eGFR (test code = 7843959630) 106.1 mL/min/1.73m2 JUAN ALBERTO (test code = [...] imaging tests). Lab Interpretation (test code = 50657-8) Abnormal [facility]2023-02-19 06:19:15* Test Item Value Reference Range Interpretation Comme nts MAGNESIUM (test code = 6309547487) 2.2 mg/dL 1.7-2.4 Lab Interpretation (test cod e = 03335-2) Normal [facility]2023-[facility]-19 06:18:55* Test Item Value Reference Range Interpretation Comme nts LIPASE (test code = 8100958951) 18 U/L 0-220 Lab Interpretation (test cod e = 57983-2) Normal [facility]CREAT[facility] [id number] 06:18:55* Test Item Value Reference Range Interpretation Comme nts CK (test code = 6672990607) 174 U/L 33-194 Lab Interpretation (test cod e = 98792-8) Normal [facility] [id number] 06:02:35* Test Item Value Reference Range Interpretation [...] 32.4 g/dL 31.2-35.0 RDW-SD (test code = 95681-4) 50.2 fL 38.5-51.6 RDW-CV (test code = 788-0) 14.3 % 12.1-15.4 PLT (test code = 777-3) 241 See_Comment [Automated messa ge] The system which generated this result transmitted reference range: 150 - 328 10*3/?L. The reference range was not used to interpret this result as normal/abnormal. MPV (test code = 97156-7) 8.6 fL 9.8-13.0 L NRBC/100 WBC (test code = 2603712595) 0.0 See_Comment [Automated me ssage] The system which generated this result transmitted reference range: 0.0 - 10.0 /100 WBCs. The reference range was not used to interpret this result as normal/abnormal. NRBC x10^3 (test code = 4524704132) See_Comment [Automated messa ge] The system which generated this result transmitted reference range: 10*3/?L. The reference range was not used to interpret this result as normal/abnormal. GRAN MAT (NEUT) % (test code = 770-8) 63.9 % IMM GRAN % (test code = 0231057505) 0.50 % LYMPH % (test code = 736-9) 17.6 % MONO % (test code = 5905-5) 16.5 % EOS % (test code = 713-8) 0.7 % BASO % (test code = 706-2) 0.8 % GRAN MAT x10^3(ANC) (test code = 0528069564) 4.79 10*3/uL 1.99-6.95 IMM GRAN x10^3 (test code = 0295048278) 0.04 10*3/uL 0.00-0.06 LYMPH x10^3 (test code = 731-0) 1.32 10*3/uL 1.09-3.23 MONO x10^3 (test code = 742-7) 1.24 10*3/uL 0.36-1.02 H EOS x10^3 (test code = 711-2) 0.05 10*3/uL 0.06-0.53 L BASO x10^3 (test code = 704-7) 0.06 10*3/uL 0.01-0.09 Lab Interpretation (test code = 03462-0) Abnormal [facility] [id number] 15:15:32* Test Item Value Reference Range Interpretation Comments TROPONIN I (test code = 7504513165) 0.007 ng/mL See_Comment [Automated message] The system [...] of biotin. Lab Interpretation (test code = 28430-6) Normal [facility]PTT2022-[facility]-16 15:08:29* Test Item Value Reference Range Interpretation Comme [facility] APTT Patient (test code = 3173-2) See_Comment [Automated message] The system which generated this result transmitted reference range: 23 - 38 Seconds. The reference range was not used to interpret this result as normal/abnormal. JUAN ALBERTO (test code = JUAN ALBERTO) The [facility] patient population mean normal value for aPTT is 30 seconds. Lab Interpretation (test code = 48007-8) Normal [facility]anoPROTHROMBIN TIME / [id number] 15:06:28* Test Item Value Reference Range Interpretation [...] the indications. Lab Interpretation (test code = 43607-0) Normal [facility] METABOLIC PANEL (51813)2022-04-06 15:03:31* Test Item Value Reference Range Interpretation Comme [facility] NA (test code = 2016143853) 136 mmol/L 135-145 K (test code = 2518021747) 5.0 mmol/L 3.5-5 CL (test code = 1141651661) 104 mmol/L 98-108 CO2 TOTAL (test code = 9835179669) 21 mmol/L 23-31 L AGAP (test code = 0356406865) 2-16 BUN (test code = 5757403721) 11 mg/dL 7-23 GLUCOSE (test code = 4996109246) 162 mg/dL 70-110 H CREATININE (test code = 4893019516) 0.52 mg/dL 0.6-1.25 L TOTAL BILI (test code = 5071726793) 1.0 mg/dL 0.1-1.1 CALCIUM (test code = 0919032277) 9.3 mg/dL 8.6-10.6 T PROTEIN (test code = 9135358029) 7.4 g/dL 6.3-8.2 ALBUMIN (test code = 8333868544) 4.4 g/dL 3.5-5 ALK PHOS (test code = 4303415658) 134 U/L 34-122 H ALTv (test code = 1742-6) 17 U/L 5-50 AST(SGOT) (test code = 3175694561) 38 U/L 13-40 eGFR (test code = 2288970312) mL/min/1.73m2 JUAN ALBERTO (test code = JUAN [...] imaging tests). Lab Interpretation (test code = 78398-3) [facility] [id number] 15:03:31* Test Item Value Reference Range Interpretation Comme nts LIPASE (test code = 8580430461) 29 U/L 0-220 Lab Interpretation (test cod e = 15691-1) [facility] [place] [place] [id number] 14:51:49* Test Item Value Reference Range Interpretation Comme nts WBC (test code = 6690-2) See_Comment [Automated [employer]] The system which generated this result transmitted reference range: 4.20 - 10.70 10*3/?L. The reference range was not used to interpret this result as normal/abnormal. RBC (test code = 789-8) See_Comment [Automated [employer]] The system which generated this result [...] 34.0 g/dL 31.2-35 RDW-SD (test code = 93957-0) 45.9 fL 38.5-51.6 RDW-CV (test code = 788-0) 13.3 % 12.1-15.4 PLT (test code = 777-3) See_Comment [Automated The [employer] ge] The system which generated this result transmitted reference range: 150 - 328 10*3/?L. The reference range was not used to interpret this result as normal/abnormal. MPV (test code = 25573-7) 8.4 fL 9.8-13 L NRBC/100 WBC (test code = 3847712909) See_Comment [Automated me ssage] The system which generated this result transmitted reference range: 0.0 - 10.0 /100 WBCs. The reference range was not used to interpret this result as normal/abnormal. NRBC x10^3 (test code = 7583229821) See_Comment [Automated messa ge] The system which generated this result transmitted reference range: 10*3/?L. The reference range was not used to interpret this result as normal/abnormal. GRAN MAT (NEUT) % (test code = 770-8) 63.0 % IMM GRAN % (test code = 3150239312) 0.50 % LYMPH % (test code = 736-9) 25.2 % MONO % (test code = 5905-5) 9.8 % EOS % (test code = 713-8) 0.3 % BASO % (test code = 706-2) 1.2 % GRAN MAT x10^3(ANC) (test code = 8460072004) 3.73 10*3/uL 1.99-6.95 IMM GRAN x10^3 (test code = 9576094587) 0.03 10*3/uL 0-0.06 LYMPH x10^3 (test code = 731-0) 1.49 10*3/uL 1.09-3.23 MONO x10^3 (test code = 742-7) 0.58 10*3/uL 0.36-1.02 EOS x10^3 (test code = 711-2) 0.06-0.53 L BASO x10^3 (test code = 704-7) 0.07 10*3/uL 0.01-0.09 Lab Interpretation (test code = 61353-9) [facility] Urinal[facility] Rflx Cult/Uhsrr2250-47-28 13:53:00* Test Item Value Reference Range Interpretation Comme nts Color,Urine (test code = UCOL) Yellow Yellow Clarity,Urine (test code = UCLAR) Cloudy Clear A Ph, Urine (test code = UPH) 7.5 5.0-9.0 N Specific [place],Urine (test code = USG) 1.025 1.005-1.030 N [...] = ULEU) Negative mg/dL Negative UF REFLEXDrug Screen,Jabcu5400-22-26 13:53:00* Test Item Value Reference Range Interpretation [...] UPROP) Negative Negative Complete Blood Count Auto Eyys3005-13-61 12:58:00* Test Item Value Reference Range Interpretation [...] = NRBCP) 0 % Coronavirus PCR, COVID19 Yuemy0152-01-21 12:58:00* Test Item Value Reference Range Interpretation Comme nts Coronavirus PCR, COVID19 Rapid (test code = SARSCOV2) Coronavirus PCR, COVID19 Rapid (test code = HEKERTL35.1) Reference Range: Negative SARS-CoV-2 PCR Result: (test code = SARS-CoV-2 PCR Result:) Negative by RT-PCR COVID-19 Status: AsymptomaticComprehensive Metabolic Nnpow2597-83-32 12:58:00* Test Item Value Reference Range Interpretation [...] = ALP) 144 U/L 46-116 H Ethanol Cpxbl9858-03-26 12:58:00* Test Item Value Reference Range Interpretation Comme nts Ethanol (test code = ETOH) < 3 mg/dL The pharmacologi yudy response to blood alcohol levels mayvary from individual to individual. The fatal concentrationhas been reported to be >400mg/dL. KKCPZXG9286-03-20 01:47:56* Test Item Value Reference Range Interpretation Comme nts [place] (test code = 7826979151) 0.7 mmol/L 0.6-1.2 JUAN ALBERTO (test code = JUAN ALBERTO) Toxic Range: ? Greater than 1.2 mmol/L Lab Interpretation (test code = 56376-0) Normal [facility] [id number] 00:26:53* Test Item Value Reference Range Interpretation Comments TROPONIN I (test code = 6761851387) 0.002 ng/mL See_Comment [Automated message] The system [...] of biotin. Lab Interpretation (test code = 38161-8) Normal [facility]2022-[facility]-01 00:18:52 ALCOHOL<10mg/dL01/19/2022 7:18 PM [facility]10 Szlbelib45-299 Toxic>100 Depression of TERMINAL WORKER>400 Fatalities ReportedB[facility]anoCOMP. METABOLIC PANEL (69651)2022-01-20 00:16:16* Test Item Value Reference Range Interpretation Comme nts NA (test code = 9676266998) 137 mmol/L 135-145 K (test code = 2469843454) 4.5 mmol/L 3.5-5 CL (test code = 6545426778) 103 mmol/L 98-108 CO2 TOTAL (test code = 3258622311) 26 mmol/L 23-31 AGAP (test code = 4918346119) 2-16 BUN (test code = 3082703163) 10 mg/dL 7-23 GLUCOSE (test code = 7668807205) 121 mg/dL 70-110 H CREATININE (test code = 6514554409) 0.65 mg/dL 0.6-1.25 TOTAL BILI (test code = 5628150288) 0.8 mg/dL 0.1-1.1 CALCIUM (test code = 6321642405) 11.4 mg/dL 8.6-10.6 H T PROTEIN (test code = 1043970644) 7.2 g/dL 6.3-8.2 ALBUMIN (test code = 4780063420) 4.6 g/dL 3.5-5 ALK PHOS (test code = 6212628485) 112 U/L 34-122 ALTv (test code = 1742-6) 19 U/L 5-50 AST(SGOT) (test code = 5381966320) 26 U/L 13-40 eGFR (test code = 4725041425) mL/min/1.73m2 JUAN ALBERTO (test code = JUAN [...] imaging tests). Lab Interpretation (test code = 68117-4) Abnormal [facility] WITH [id number] 23:43:54* Test Item Value Reference Range Interpretation Comme nts WBC (test code = 6690-2) See_Comment [Automated The [employer] ge] The system which generated this result transmitted reference range: 4.20 - 10.70 10*3/?L. The reference range was not used to interpret this result as normal/abnormal. RBC (test code = 789-8) See_Comment [Automated The [employer] ge] The system which generated this result [...] 34.4 g/dL 31.2-35 RDW-SD (test code = 40101-1) 44.0 fL 38.5-51.6 RDW-CV (test code = 788-0) 12.6 % 12.1-15.4 PLT (test code = 777-3) See_Comment [Automated The [employer]] The system which generated this result transmitted reference range: 150 - 328 10*3/?L. The reference range was not used to interpret this result as normal/abnormal. MPV (test code = 19018-2) 9.1 fL 9.8-13 L NRBC/100 WBC (test code = 1761149027) See_Comment [Automated avox ssage] The system which generated this result transmitted reference range: 0.0 - 10.0 /100 WBCs. The reference range was not used to interpret this result as normal/abnormal. NRBC x10^3 (test code = 4234932722) See_Comment [Automated The [employer]] The system which generated this result transmitted reference range: 10*3/?L. The reference range was not used to interpret this result as normal/abnormal. GRAN MAT (NEUT) % (test code = 770-8) 69.8 % IMM GRAN % (test code = 2189079696) 0.40 % LYMPH % (test code = 736-9) 18.0 % MONO % (test code = 5905-5) 10.9 % EOS % (test code = 713-8) 0.1 % BASO % (test code = 706-2) 0.8 % GRAN MAT x10^3(ANC) (test code = 7706455415) 5.58 10*3/uL 1.99-6.95 IMM GRAN x10^3 (test code = 9291576548) 0.03 10*3/uL 0-0.06 LYMPH x10^3 (test code = 731-0) 1.44 10*3/uL 1.09-3.23 MONO x10^3 (test code = 742-7) 0.87 10*3/uL 0.36-1.02 EOS x10^3 (test code = 711-2) 0.06-0.53 L BASO x10^3 (test code = 704-7) 0.06 10*3/uL 0.01-0.09 Lab Interpretation (test code = 36925-5) Abnormal [facility] GLUCOSE (AUTOMATED)2022-01-19 22:27:41* Test Item Value Reference Range Interpretation Comme nts POCT GLU (test code = 1899520287) 123 mg/dL 70-110 H Lab Interpretation (test cod e = 94967-9) Abnormal [facility] GLUCOSE (AUTOMATED)2021-12-30 22:08:16* Test Item Value Reference Range Interpretation Comme nts POCT GLU (test code = 2325345389) 167 mg/dL 70-110 H Lab Interpretation (test cod e = 80544-4) Abnormal [facility] GLUCOSE (AUTOMATED)2021-12-30 16:50:40* Test Item Value Reference Range Interpretation Comme nts POCT GLU (test code = 4289620089) 154 mg/dL 70-110 H Lab Interpretation (test cod e = 13018-2) Abnormal [facility] GLUCOSE (AUTOMATED)2021-12-30 12:38:43* Test Item Value Reference Range Interpretation Comme nts POCT GLU (test code = 7641209438) 164 mg/dL 70-110 H Lab Interpretation (test cod e = 30578-6) Abnormal [facility] GLUCOSE (AUTOMATED)2021-12-30 02:14:58* Test Item Value Reference Range Interpretation Comme nts POCT GLU (test code = 1882302767) 220 mg/dL 70-110 H Lab Interpretation (test cod e = 58134-3) Abnormal [facility] GLUCOSE (AUTOMATED)2021-12-29 21:50:02* Test Item Value Reference Range Interpretation Comme nts POCT GLU (test code = 1368730911) 191 mg/dL 70-110 H Lab Interpretation (test cod e = 27819-3) Abnormal [facility] GLUCOSE (AUTOMATED)2021-12-29 20:15:01* Test Item Value Reference Range Interpretation Comme nts POCT GLU (test code = 4937515052) 163 mg/dL 70-110 H Lab Interpretation (test cod e = 00290-9) Abnormal [facility]Transthoracic echo (TTE)2021-12-29 19:12:22* Test Item Value Reference Range Interpretation Comme nts Height (test code = 2772708168) in Weight (test code = 8360673295) lbs Systolic BP (test code = 9718608088) mmHg Diastolic BP (test code = 3231336592) mmHg Heart Rate (test code = 2559777056) bpm BSA (test code = 1885870077) 1.62 m2 Ao root annulus (test code = 1818080546) 2.45 cm Ao root diam (test code = 9411262747) 2.45 cm Aortic root (test code = 2708961994) 2.45 cm ACS (test code = 4143524024) 1.66 cm LA size (test code = 3252199632) 3.2 cm LVOT diameter (test code = 5919222825) 1.95 cm LVIDD (test code = 0213045186) 3.60 cm IVS (test code = 5015185804) 0.94 cm Interventricular Septum Diastolic Thickness by 2D (test code = 4633142) 0.94 cm LVPWD (test code = 9214982553) 0.80 cm PW (test code = 0779813490) 0.80 cm 0.6-1.1 EF(Teich) (test code = 5254092891) 52.80 % LVIDS (test code = 1442113268) 2.60 cm FS (test code = 2832137597) 27 % EF - 2D (test code = 31380436) 52.80 % LAV(MOD-sp4) (test code = 0975616499) 16.80 mL MV Peak E Jovany (test code = 4159975256) 46.1 cm/s E wave decelartion time (test code = 2644778634) 0.31 s MV Peak A Jovany (test code = 7338870149) 58.1 cm/s E/A ratio (test code = 5123657895) ratio MV E/e' septal (test code = 2760122269) 5.7 cm/s Tapse (test code = 6480090001) 1.60 cm LVOT stroke volume (test code = 6713959513) 52.10 cm3 LVOT peak jovany (test code = 4041371909) 110.6 cm/s LVOT mn grad (test code = 4777831637) mmHg AV LVOT peak gradient (test code = 1319167633) mmHg LVOT peak VTI (test code = 3342172761) 17.4 cm LV V1 mean (test code = 4028315243) 66.10 cm/s Aortic valve mean velocity (test code = 1409964183) 73.0 cm/s Ao peak jovany (test code = 7240534762) 124.6 cm/s Ao VTI (test code = 7492533996) 18.6 cm AV area by cont VTI (test code = 8097472176) 2.8 cm2 AV area peak jovany (test code = 5977914899) 2.7 cm2 Ao max PG (test code = 6231960234) 6.20 mm[Hg] AV peak gradient (test code = 9815063203) mmHg AV valve area (test code = 6691638395) 2.80 cm2 AV mean gradient (test code = 6777804010) mmHg Radiology Study observation (narrative) (test code = 38744-4) JUAN ALBERTO (test code = JUAN ALBERTO) [...] Lumason ultrasound enhancing agent used. [facility])2021-12-29 12:50:31* Test Item Value Reference Range Interpretation Comme nts POCT GLU (test code = 1697552272) 141 mg/dL 70-110 H Lab Interpretation (test cod e = 94592-2) Abnormal [facility]anoTroponin [id number] 10:38:31* Test Item Value Reference Range Interpretation Comments TROPONIN I (test code = 0866853359) 0.003 ng/mL See_Comment [Automated message] The system [...] of biotin. Lab Interpretation (test code = 82119-6) Normal [facility] PlanoLIPID PANEL (35057)(TOTAL CHOLESTEROL, TRIGLYCERIDES, HDL)2021-12-29 05:56:47* Test Item Value Reference Range Interpretation Comme nts CHOL (test code = 2059528761) 168 mg/dL 120-200 HDL (test code = 9435186436) 102 mg/dL See_Comment [[employer]] The system which generated this result transmitted reference range: >=40. The reference range was not used to interpret this result as normal/abnormal. HDLC RATIO (test code = 1730178398) See_Comment [Automated [employer]] The system which generated this result transmitted reference range: <=5.0. The reference range was not used to interpret this result as normal/abnormal. TRIG (test code = 4239907588) 55 mg/dL 30-170 LDL CHOL (test code = 07044-8) 55 mg/dL See_Comment [[employer]] The system which generated this result transmitted reference range: <=160. The reference range was not used to interpret this result as normal/abnormal. VLDL (test code = 0186826327) 11 mg/dL 5-60 Lab Interpretation (test code = 01500-5) Normal [facility]anoThyroid Stimulating Hormone (TSH)2021-12-29 05:40:29* Test Item Value Reference Range Interpretation Comme nts TSH (test code = 8362313037) See_Comment Biotin has been reported to cause a negative bias, interpret results relative to patient's use of biotin. [Automated message] The system which generated this result transmitted reference range: 0.45 - 4.70 mIU/L. The reference range was not used to interpret this result as normal/abnormal. Lab Interpretation (test code = 32579-8) Normal [facility] [id number] 05:34:29* Test Item Value Reference Range Interpretation Comments TROPONIN I (test code = 7105558245) 0.006 ng/mL See_Comment [Automated message] The system [...] of biotin. Lab Interpretation (test code = 99831-7) Normal [facility]OL2022-07-10 04:43:01 ALCOHOL<10mg/dL12/28/2021 11:43 PM [facility] Greater than or equal to 80 mg/dL. NOTE: Whole blood values are approximately 10% to 15% lower than serum and plasma.[facility] Glycosylated Hemoglobin (A1C)2021-12-29 01:51:44* Test Item Value Reference Range Interpretation Comme nts HGB A1C (test code = 4548-4) 6.5 % 4-5.7 H JUAN ALBERTO (test code = JUAN ALBERTO) Reference RangesNormal: <5.7%Prediabetes: 5.7 - 6.4%Diabetes: > 6.5% Lab Interpretation (test code = 90249-1) Abnormal [facility] [id number] 21:26:50* Test Item Value Reference Range Interpretation Comments TROPONIN I (test code = 1316194630) 0.002 ng/mL See_Comment [Automated message] The system [...] of biotin. Lab Interpretation (test code = 40353-3) Normal [facility]anoN-TERMINAL RUR-MYP7352-89-09 21:23:29* Test Item Value Reference Range Interpretation Comme nts NT-proBNP (test code = 0227862802) 41 pg/mL See_Comment [Automated message] The system which generated this result transmitted reference range: <=125. The reference range was not used to interpret this result as normal/abnormal. JUAN ALBERTO (test code = JUAN ALBERTO) Biotin has been reported to cause a negative bias, interpret results relative to patient's use of biotin. Lab Interpretation (test code = 33666-6) Normal [facility]anoAMMONIA, [id number] 21:20:38* Test Item Value Reference Range Interpretation Comme nts AMMONIA (test code = 5419514918) 9-33 L Slight hemolysis Lab Interpretation (test code = 00475-3) Abnormal [facility]anoCOMP. METABOLIC PANEL (93869)2021-12-28 21:08:48* Test Item Value Reference Range Interpretation Comme nts NA (test code = 7966159028) 137 mmol/L 135-145 K (test code = 6687397364) 4.5 mmol/L 3.5-5 CL (test code = 4798231892) 97 mmol/L 98-108 L CO2 TOTAL (test code = 0763744140) 29 mmol/L 23-31 AGAP (test code = 1634067126) 2-16 BUN (test code = 1443082820) 10 mg/dL 7-23 GLUCOSE (test code = 7813040932) 188 mg/dL 70-110 H CREATININE (test code = 3106300881) 0.58 mg/dL 0.6-1.25 L TOTAL BILI (test code = 0056012808) 0.8 mg/dL 0.1-1.1 CALCIUM (test code = 6272495897) 10.5 mg/dL 8.6-10.6 T PROTEIN (test code = 9565973927) 7.6 g/dL 6.3-8.2 ALBUMIN (test code = 4080185631) 4.5 g/dL 3.5-5 ALK PHOS (test code = 3130375397) 107 U/L 34-122 ALTv (test code = 1742-6) 66 U/L 5-50 H AST(SGOT) (test code = 4389431913) 96 U/L 13-40 H eGFR (test code = 9879411035) mL/min/1.73m2 JUAN ALBERTO (test code = JUAN [...] imaging tests). Lab Interpretation (test code = 97387-4) Abnormal [facility] PlanoPROTHROMBIN TIME / [id number] 21:01:25* Test Item Value Reference Range Interpretation Comme nts PROTIME PATIENT (test code = 5964-2) See_Comment [Automated The [employer] ge] The system which generated this result transmitted reference range: 12.0 - 14.7 Seconds. The reference range was not used to interpret this result as normal/abnormal. INR (test code = 6301-6) Normal INR <1.1; Warfarin Therapeutic range 2.0 to 3.0 or 2.5 to 3.5, depending upon the indications. Lab Interpretation (test code = 51680-9) Normal [facility] PlanoCBC WITH [id number] 20:54:03* Test Item Value Reference Range Interpretation Comme nts WBC (test code = 6690-2) See_Comment [Automated [employer]] The system which generated this result transmitted reference range: 4.20 - 10.70 10*3/?L. The reference range was not used to interpret this result as normal/abnormal. RBC (test code = 789-8) See_Comment [Automated [employer]] The system which generated this result [...] 34.2 g/dL 31.2-35 RDW-SD (test code = 09616-4) 47.8 fL 38.5-51.6 RDW-CV (test code = 788-0) 13.3 % 12.1-15.4 PLT (test code = 777-3) See_Comment [Automated The [employer] ge] The system which generated this result transmitted reference range: 150 - 328 10*3/?L. The reference range was not used to interpret this result as normal/abnormal. MPV (test code = 33417-9) 8.6 fL 9.8-13 L NRBC/100 WBC (test code = 4707392056) See_Comment [Automated me ssage] The system which generated this result transmitted reference range: 0.0 - 10.0 /100 WBCs. The reference range was not used to interpret this result as normal/abnormal. NRBC x10^3 (test code = 7828723056) See_Comment [Automated messa ge] The system which generated this result transmitted reference range: 10*3/?L. The reference range was not used to interpret this result as normal/abnormal. GRAN MAT (NEUT) % (test code = 770-8) 64.1 % IMM GRAN % (test code = 2453791587) 0.40 % LYMPH % (test code = 736-9) 16.6 % MONO % (test code = 5905-5) 17.2 % EOS % (test code = 713-8) 0.2 % BASO % (test code = 706-2) 1.5 % GRAN MAT x10^3(ANC) (test code = 3165560662) 3.47 10*3/uL 1.99-6.95 IMM GRAN x10^3 (test code = 5488409105) 0-0.06 LYMPH x10^3 (test code = 731-0) 0.90 10*3/uL 1.09-3.23 L MONO x10^3 (test code = 742-7) 0.93 10*3/uL 0.36-1.02 EOS x10^3 (test code = 711-2) 0.06-0.53 L BASO x10^3 (test code = 704-7) 0.08 10*3/uL 0.01-0.09 Lab Interpretation (test code = 18659-7) Abnormal [facility] PlanoEthanol [id number] 21:08:00* Test Item Value Reference Range Interpretation Comme nts Ethanol (test code = ETOH) < 3 mg/dL The pharmacologi yudy response to blood alcohol levels mayvary from individual to individual. The fatal concentrationhas been reported to be >400mg/dL. Complete Blood Count Auto Tpdi3927-82-72 17:33:00* Test Item Value Reference Range Interpretation [...] = NRBCP) 0 % UA, Urinalysis Rflx Cult/Zthjr0388-96-91 17:33:00* Test Item Value Reference Range Interpretation Comme nts Color,Urine (test code = UCOL) Dark Yellow Yellow A Clarity,Urine (test code = UCLAR) Clear Clear Ph, Urine (test code = UPH) 6.5 5.0-9.0 N Specific [place],Urine (test code = USG) 1.015 1.005-1.030 N [...] = ULEU) Trace mg/dL Negative A Urine Goygvhkczca2510-29-89 17:33:00* Test Item Value Reference Range Interpretation Comme nts RBC,Urine (test code = URBCUF) None Seen /HPF 0-2 WBC,Urine (test code = UWBCUF) 0-5 /HPF 0-5 Epithelial Cell,Urine (test code = UECUF) 0-5 /HPF 0-5 Casts,Urine (test code = UCASTUF) None Seen /LPF None Seen Bacteria,Urine (test code = UBACTUF) None Seen /hpf None Seen Drug Screen,Lofvg4779-01-81 17:33:00* Test Item Value Reference Range Interpretation [...] code = UPROP) Negative Negative Comprehensive Metabolic Rvtii0717-45-30 17:33:00* Test Item Value Reference Range Interpretation [...] 101 U/L 46-116 N Sars-CoV-2/FLU A/B RSV [id number] 17:31:00* Test Item Value Reference Range Interpretation [...] SARS-CoV-2 PCR Result:) Negative by RT-PCR Drug Screen,Kcvlf6894-00-36 17:20:00* Test Item Value Reference Range Interpretation [...] UPROP) Negative Negative Complete Blood Count Auto Xzhe3755-93-69 17:14:00* Test Item Value Reference Range Interpretation [...] code = NRBCP) 0 % Comprehensive Metabolic Qienb4297-95-47 17:14:00* Test Item Value Reference Range Interpretation [...] = ALP) 207 U/L 46-116 H Ethanol Vjxvo8317-60-20 17:14:00* Test Item Value Reference Range Interpretation Comme nts Ethanol (test code = ETOH) 192 mg/dL Complete Blood Count Auto Htiw8326-80-30 20:20:00* Test Item Value Reference Range Interpretation [...] code = NRBCP) 0 % Comprehensive Metabolic Qoctp7804-40-96 20:20:00* Test Item Value Reference Range Interpretation [...] = ALP) 189 U/L 46-116 H Ethanol Sewzc2918-20-93 20:20:00* Test Item Value Reference Range Interpretation Comme nts Ethanol (test code = ETOH) 10 mg/dL Sars-CoV-2/FLU A/B RSV ZQE5178-97-18 20:20:00* Test Item Value Reference Range Interpretation [...] Negative by Nucleic Acid Amplification UA, Urinalysis Gzhkxgfknrb9437-67-01 20:20:00* Test Item Value Reference Range Interpretation Comme nts Color,Urine (test code = UCOL) Yellow Y Clarity,Urine (test code = UCLAR) Clear Clear PH,Urine (test code = UPH.XX) 7.0 5.5-8.5 Specific [place],Urine (test code = USG) 1.020 1.005-1.030 N [...] code = ULEU) Negative cells/uL Negative Drug Screen,Uofhw1446-55-79 20:20:00* Test Item Value Reference Range Interpretation [...] RESULT TO FO LLOW CT head/brain wo [facility] [address] [place] [address] Patient Name: Walt Velazquez Medical Record#: [id number] Address: Homeless City/State/Zip: [place] [address]: Vinnie Navarro MD Insurance: Self Pay /Age/Sex: 1970/50/M Admit/Reg Date: 09/17/[address]: Vinnie Navarro MD Location: [facility]/ PCP: PcpMd KERWIN Jimenez Date of Service: 09/17/21 Order (s): CT head/brain wo con CPT Code: 76655 Report Number: [id number] Reason for Exam: Altered mental status Location [...] gait, in no apparent distress, T [facility] 2023-12-12 22:20:05 Pt removed all monitoring equipment T [facility] 2023-12-12 20:33:23 Pt brought in by [place] [employer] for medical clearance. [facility] check pt out on scene but after pt complained of chest pain. [place] [facility] brought pt in for clearance for county. Zeina Albrecht RN [facility] 2023-11-05 16:26:20 Pt discharged with diagnosis of CP. Printed and verbal instructions reviewed with and given to pt. Prescriptions given x 0. Pt verbalized understanding of teaching and recommended follow-up. Denies questions or concerns at this time. Pt ambulatory to holding room to await transportation at discharge. Appears in no apparent distress. No ataxia noted. [facility]. Reane Saldivar RN [facility] 2023-11-05 14:56:10 Walt Festus Velazquez Sr. is a 52 year old male arrive via [facility] c/o " throbbing ball in chest" since 0600 has been constant, pt immediately asks for food, Emani Gomez RN [facility]
--- NOTE | 2024-02-13 13:23 | ER ---
Nurse's Notes [facility] Name: Walt Velazquez Age: 53 yrs Sex: Male : 1970 Arrival Date: 02/13/2024 Time: 12:03 Bed IW1 Private MD: Diagnosis: Sprain of ankle;Fall on same level, unspecified;Alcohol abuse Presentation: 02/12 12:21 Chief complaint: Patient states: Tripped and fell into grass just [employer]. L foot and R FA ll1 pain since. EMS states: VSS. Coronavirus screen: Client denies travel out of the [place] in the last 14 days. At this time, the client does not indicate any symptoms associated with coronavirus-19. Ebola Screen: Patient denies travel to an Ebola-affected area in the 21 days before illness onset. Initial Sepsis Screen: Does the patient meet any 2 criteria? No. Patient's initial sepsis screen is negative. Does the patient have a suspected source of infection? No. Patient's initial sepsis screen is negative. Risk Assessment: Do you want to hurt yourself or someone else? Patient reports no desire to harm self or others. Onset of symptoms was February 13, 2024. 12:21 Method Of Arrival: EMS: [facility] ll1 12:21 Acuity: LATASHA 4 ll1 13:31 Care prior to arrival: None. Mechanism of Injury: No Mechanism of Injury. Trauma event ll1 details: Injury occurred in the [facility]. Triage Assessment: 12:22 General: Appears in no apparent distress. Behavior is calm, cooperative, appropriate ll1 for age. Pain: Complains of pain in left foot. Musculoskeletal: Circulation, motion, and sensation intact. Capillary refill < 3 seconds, in bilateral fingers. toes. Reports pain in left foot and right arm. Trauma Activation: Not Applicable Physician: ED Physician; Name: ; Notified At: ; Arrived At: Physician: General Surgeon; Name: ; Notified At: ; Arrived At: Physician: Radiology; Name: ; Notified At: ; Arrived At: Physician: Respiratory; Name: ; Notified At: ; Arrived At: Physician: Lab; Name: ; Notified At: ; Arrived At: Historical: - Allergies: 12:08 Trazodone; ll1 - PMHx: 12:08 Hypertensive disorder; Seizure; ll1 - Immunization history:: Adult Immunizations up to date. - Immunization history: Last tetanus immunization: - up to date. - Infectious Disease History:: Denies. - Social history:: Smoking status: Patient reports the use of cigarette tobacco products, smokes .25 packs per day. - Family history:: not pertinent. Screenin:29 [facility] ED Fall Risk Assessment (Adult) History of falling in the last 3 months, ll1 including since admission Yes- single mechanical fall (1 pt) Confusion or Disorientation No (0 pts) Intoxicated or Sedated No (0 pts) Impaired Gait Yes (1 pt) Mobility Assist Device Used Yes (1 pt) Altered Elimination No (0 pt) Score/Fall Risk Level 3 or more points = High Risk Maintained a safe environment, Used ambulatory aids as needed (educated on \T\ assisted with). Abuse screen: Denies threats or abuse. Nutritional screening: No deficits noted. Tuberculosis screening: No symptoms or risk factors identified. Primary Survey: 13:30 NO uncontrolled hemorrhage observed. A: The client is awake and alert. The airway is ll1 patent. Breathing/Chest: Spontaneous respiratory effort, equal unlabored respirations, breath sounds clear bilaterally, regular pattern, symmetrical chest rise and fall. Circulation: No external hemorrhage present. Regular and strong central pulse, skin warm/dry/normal color. Disability Client is alert. Exposure/Environment: There is no evidence of uncontrolled external bleeding. 13:31 Reassessment Alertness and Airway: Awake and alert. The airway is patent. Breathing: ll1 Spontaneous respiratory effort, equal unlabored respirations, breath sounds clear bilaterally, regular pattern with symmetrical chest rise and fall. Circulation: No external hemorrhage noted. Regular and strong central pulse, skin warm/dry/normal color. Disability: Alert. Assessment: 12:22 Reassessment: No changes from previously documented assessment. eating sandwich and ll1 chips while waiting for x-ray. 13:28 Reassessment: No changes from previously documented assessment. Patient and/or family ll1 updated on plan of care and expected duration. Pain level reassessed. Patient is alert, oriented x 3, equal unlabored respirations, skin warm/dry/pink. Patient states feeling better. 13:29 Musculoskeletal: Circulation, motion, and sensation intact. Capillary refill < 3 ll1 seconds, in left toes. Vital Signs: 12:21 BP 106 / 71; Pulse 86; Resp 17; Temp 97.2; Pulse Ox 99% ; Weight 68.04 kg; Height 5 ft. ll1 3 in. ; Pain 10/10; 13:32 BP 116 / 70; Pulse 80; Resp 16; Pulse Ox 97% ; Pain 4/10; ll1 12:21 Body Mass Index 26.57 (68.04 kg, 160.02 cm) ll1 12:21 Pain Scale: Adult ll1 13:32 Pain Scale: Adult ll1 Mariia Coma Score: 13:30 Eye Response: spontaneous(4). Motor Response: obeys commands(6). Verbal Response: ll1 oriented(5). Total: 15. Trauma Score (Adult): 13:30 Eye Response: spontaneous(1); Verbal Response: oriented(1); Motor Response: obeys ll1 commands(2); Systolic BP: > 89 mm Hg(4); Respiratory Rate: 10 to 29 per min(4); [place] Score: 15; Trauma Score: 12 ED Course: 12:06 Patient arrived in ED. ra3 12:08 Arm band placed on. ll1 12:08 ice pack to L ankle. ll1 12:10 Deandre Mckeon MD is Attending Physician. bridgette 12:22 Triage completed. ll1 13:10 Ankle Left 3 View XRAY In Process Unspecified. EDMS 13:10 Foot Left 3 View XRAY In Process Unspecified. EDMS 13:10 Forearm Right XRAY In Process Unspecified. EDMS 13:22 Gabo Villanueva MD is Referral Physician. bridgette 13:29 Nir wrap to left ankle. ll1 13:31 Patient has correct armband on for positive identification. Provided Education on: n/a. ll1 13:31 No provider procedures requiring assistance completed. Patient did not have IV access ll1 during this emergency room visit. 13:31 Patient maintains SpO2 saturation greater than 95% on room air. ll1 13:31 Thermoregulation: n/a. ll1 Administered Medications: No medications were administered Medication: 13:31 VIS not applicable for this client. ll1 Intake: 13:30 PO: 250ml (Soft Drink); Total: 250ml. ll1 Output: 13:30 Urine: 0ml; Total: 0ml. ll1 Outcome: 13:23 Discharge ordered by . bridgette 13:30 Discharged to home ambulatory, ll1 13:30 Condition: stable 13:30 Discharge instructions given to patient, Instructed on discharge instructions, follow up and referral plans. Demonstrated understanding of instructions, follow-up care, 13:30 Patient's length of stay was not longer than 2 hours. 13:32 Patient left the ED. ll1 Signatures: Dispatcher [employer] EDDeandre Castrejon MD MD cha Lewis, Lynsay, RN RN ll1 Crystal Liz ra3 Corrections: (The following items were deleted from the chart) 12:27 12:21 BP 106 / 71; Pulse 80bpm; Resp 17bpm; Pulse Ox 97%; Temp 98.5F; Pain 10/10, ll1 Adult; ll1
--- NOTE | 2024-02-13 13:23 | EDPHYS ---
Physician Documentation [facility] Name: Walt Velazquez Age: 53 yrs Sex: Male : 1970 Arrival Date: 02/13/2024 Time: 12:03 Bed IW1 Private MD: ED Physician Deandre Mckeon HPI: 02/12 13:18 This 53 yrs old Male presents to ER via EMS with complaints of Fall Injury, bridgette Ankle Injury. 13:18 Details of fall: The patient fell from an upright position, while standing, while bridgette walking. Onset: The symptoms/episode began/occurred just prior to arrival. Associated injuries: The patient sustained left lateral ankle, left medial ankle and anterior aspect of left ankle, decreased range of motion, painful injury, dorsal aspect of right forearm and palmar aspect of right forearm, decreased range of motion, painful injury. Historical: - Allergies: 12:08 Trazodone; ll1 - PMHx: 12:08 Hypertensive disorder; Seizure; ll1 - Immunization history:: Adult Immunizations up to date. - Immunization history: Last tetanus immunization: - up to date. - Infectious Disease History:: Denies. - Social history:: Smoking status: Patient reports the use of cigarette tobacco products, smokes .25 packs per day. - Family history:: not pertinent. ROS: 13:18 Constitutional: Negative for fever, chills, and weight loss, Eyes: Negative for injury, bridgette pain, redness, and discharge, ENT: Negative for injury, pain, and discharge, Neck: Negative for injury, pain, and swelling, Cardiovascular: Negative for chest pain, palpitations, and edema, Respiratory: Negative for shortness of breath, cough, wheezing, and pleuritic chest pain, Abdomen/GI: Negative for abdominal pain, nausea, vomiting, diarrhea, and constipation, Back: Negative for injury and pain, : Negative for injury, bleeding, discharge, and swelling, Skin: Negative for injury, rash, and discoloration, Neuro: Negative for headache, weakness, numbness, tingling, and seizure, Psych: Negative for depression, anxiety, suicide ideation, homicidal ideation, and hallucinations, Allergy/Immunology: Negative for hives, rash, and allergies, Endocrine: Negative for neck swelling, polydipsia, polyuria, polyphagia, and marked weight changes, Hematologic/Lymphatic: Negative for swollen nodes, abnormal bleeding, and unusual bruising, 13:18 MS/extremity: Positive for decreased range of motion, pain, of the right arm and left leg, Exam: 13:18 Constitutional: This is a well developed, well nourished patient who is awake, alert, bridgette and in no acute distress. Head/Face: Normocephalic, atraumatic. Eyes: Pupils equal round and reactive to light, extra-ocular motions intact. Lids and lashes normal. Conjunctiva and sclera are non-icteric and not injected. Cornea within normal limits. Periorbital areas with no swelling, redness, or edema. ENT: Nares patent. No nasal discharge, no septal abnormalities noted. Tympanic membranes are normal and external auditory canals are clear. Oropharynx with no redness, swelling, or masses, exudates, or evidence of obstruction, uvula midline. Mucous membranes moist. Neck: Trachea midline, no thyromegaly or masses palpated, and no cervical lymphadenopathy. Supple, full range of motion without nuchal rigidity, or vertebral point tenderness. No Meningismus. Chest/axilla: Normal chest wall appearance and motion. Nontender with no deformity. No lesions are appreciated. Cardiovascular: Regular rate and rhythm with a normal S1 and S2. No gallops, murmurs, or rubs. Normal PMI, no JVD. No pulse deficits. Respiratory: Lungs have equal breath sounds bilaterally, clear to auscultation and percussion. No rales, rhonchi or wheezes noted. No increased work of breathing, no retractions or nasal flaring. Abdomen/GI: Soft, non-tender, with normal bowel sounds. No distension or tympany. No guarding or rebound. No evidence of tenderness throughout. Back: No spinal tenderness. No costovertebral tenderness. Full range of motion. Male : Normal genitalia with no discharge or lesions. Skin: Warm, dry with normal turgor. Normal color with no rashes, no lesions, and no evidence of cellulitis. Neuro: Awake and alert, GCS 15, oriented to person, place, time, and situation. Cranial nerves II-XII grossly intact. Motor strength 5/5 in all extremities. Sensory grossly intact. Cerebellar exam normal. Normal gait. Psych: Awake, alert, with orientation to person, place and time. Behavior, mood, and affect are within normal limits. 13:18 Musculoskeletal/extremity: ROM: limited active range of motion due to pain, limited passive range of motion due to pain, in the left medial ankle and anterior aspect of left ankle, Vital Signs: 12:21 BP 106 / 71; Pulse 86; Resp 17; Temp 97.2; Pulse Ox 99% ; Weight 68.04 kg; Height 5 ft. ll1 3 in. ; Pain 10/10; 13:32 BP 116 / 70; Pulse 80; Resp 16; Pulse Ox 97% ; Pain 4/10; ll1 12:21 Body Mass Index 26.57 (68.04 kg, 160.02 cm) ll1 12:21 Pain Scale: Adult ll1 13:32 Pain Scale: Adult ll1 Mariia Coma Score: 13:30 Eye Response: spontaneous(4). Motor Response: obeys commands(6). Verbal Response: ll1 oriented(5). Total: 15. Trauma Score (Adult): 13:30 Eye Response: spontaneous(1); Verbal Response: oriented(1); Motor Response: obeys ll1 commands(2); Systolic BP: > 89 mm Hg(4); Respiratory Rate: 10 to 29 per min(4); [place] Score: 15; Trauma Score: 12 MDM: 12:10 Patient medically screened. [facility] 13:20 Differential diagnosis: contusion, multiple trauma, sprain, strain. Data reviewed: [facility] vital signs, nurses notes, radiologic studies, plain films. Consideration of Admission/Observation Escalation of care including admission/observation considered. I considered the following discharge prescriptions or medication management in the emergency department Medications were administered in the Emergency Department. See MAR. Independent interpretation of the following test(s) in the Emergency Department X-Ray: My interpretation is left ankle, right forearm. Test considered but Not performed: Labs: no labs. Historians other than the Patient: EMS: ems well informed. Care significantly affected by the following chronic conditions: Hypertension, alcohol abuse. 02/12 12:10 Order name: Ankle Left 3 View XRAY [facility] 02/12 12:44 Order name: Foot Left 3 View XRAY [facility] 02/12 12:44 Order name: Forearm Right XRAY [facility] 02/12 12:10 Order name: Ice pack; Complete Time: 12:27 [facility] 02/12 13:24 Order name: Nir wrap-joint; Complete Time: 13:24 bridgette Administered Medications: No medications were administered Disposition Summary: 02/13/24 13:23 Discharge Ordered Notes: Location: Home bridgette Problem: new bridgette Symptoms: have improved bridgette Condition: Stable bridgette Diagnosis - Sprain of ankle bridgette - Fall on same level, unspecified bridgette - Alcohol abuse bridgette Followup: bridgette - With: Private Physician - When: 2 - 3 days - Reason: Recheck today's complaints, Continuance of care, Re-evaluation by your physician Followup: bridgette - With: Gabo Villanueva MD - When: 2 - 3 days - Reason: Recheck today's complaints, Re-evaluation by your physician Discharge Instructions: - Discharge Summary Sheet bridgette - Ankle Sprain bridgette - Alcohol Use Disorder bridgette - Fall Prevention in the Home, Adult bridgette - Alcohol Abuse and Nutrition bridgette - Ankle Pain bridgette - Fall Prevention in Hospitals, Adult bridgette Forms: - Medication Reconciliation Form bridgette - Antibiotic Education bridgette - Prescription Opioid Use bridgette - Patient Portal Instructions bridgette - Leadership Thank You Letter bridgette Signatures: Dispatcher [employer] Deandre Gonzales MD MD cha Lewis, Lynsay, RN RN ll1 Corrections: (The following items were deleted from the chart) 12:44 12:44 Foot Left 3 View+RAD.RAD.BRZ ordered. YULIYA DWYER
--- NOTE | 2024-02-13 13:28 | RAD REPORT ---
EXAM DESCRIPTION: RAD - Ankle Left 3 View - 02/13/2024 1:08 pm CLINICAL HISTORY: PAIN COMPARISON: <Comparisons> FINDINGS: Moderate soft tissue swelling is seen about the ankle. Vascular calcification noted. No gr oss fracture or dislocation seen.
--- NOTE | 2024-02-13 13:28 | RAD REPORT ---
EXAM DESCRIPTION: RAD - Foot Left 3 View - 02/13/2024 1:08 pm CLINICAL HISTORY: PAIN COMPARISON: <Comparisons> FINDINGS: Prior fifth toe amputation noted. Moderate vascular calcifications seen. Moderate soft tis monica swelling. No acute fracture or dislocation.
--- NOTE | 2024-02-13 13:29 | RAD REPORT ---
EXAM DESCRIPTION: RAD - Forearm Right - 02/13/2024 1:08 pm CLINICAL HISTORY: PAIN COMPARISON: <Comparisons> FINDINGS: Mild soft tissue swelling along the dorsum of the wrist. Heavy vascular atherosclerosis. S mall olecranon spur. No acute fracture or dislocation.
[2024-02-13 13:52] VITALS: TEMP 97.2
[2024-02-13 13:54] VITALS: BP 116/70; O2SAT 97
== END 2024-02-13 13:32 | disposition home or self-care (01) ==
LOC: ER 12:03
DX: S93.402A Sprain of unspecified ligament of left ankle, initial encounter (principal); F10.10 Alcohol abuse, uncomplicated; W18.30XA Fall on same level, unspecified, initial encounter; F17.210 Nicotine dependence, cigarettes, uncomplicated
CPT/HCPCS: 99284

== ENCOUNTER 2024-02-14 00:42 | Emergency (ER) | payer SELFPAY ==
--- OUTSIDE RECORDS SUMMARY | 2024-02-14 00:48 | XMS REPORT | Continuity of Care Document ---
Author Name Unknown Address [address] [facility] [address] [place] [address] [facility] Address [address] [facility] [address] [place] [address] Care Team Providers Care International Controller Name Role Phone Pcp-None Primary Care Physician Unavailab Rafael Thomas MD Attending Clinician [phone] Sulaiman Hawkins DO Attending Clinician [phone] HEMANT KLEIN Attending Clinician Unavailable Hemant Klein MD Attending Clinician [phone] [place] Attending Clinician Unavailab JESSICA Gallardo Attending Clinician Unavailable Rayray Driscoll MD Attending Clinician +[phone] Jessica Prado MD Attending Clinician [phone] Oswald Murphy MD Attending Clinician [phone] DIYA CHOWDHURY Attending Clinician Unavailab Diya Mackey DO Attending Clinician [phone] Fidel Cuellar Attending Clinician Unavailable DIRK YARBROUGH Attending Clinician Unavailable Leticia Rowland Attending Clinician [phone] Dirk Yarbrough MD Attending Clinician [phone] Faye Portillo LVN Attending Clinician [phone] Pia Reddy Attending Clinician [phone] Vinnie Navarro Attending Clinician Unavailable OSWALD MURPHY Admitting Clinician Unavailable Oswald Murphy MD Admitting Clinician [phone] DIYA CHOWDHURY Admitting Clinician UnavailLeticia Gaytan Admitting Clinician Unavailable JESSICA PRADO Admitting Clinician Unavailable Jessica Prado MD Admitting Clinician [phone] Payers Payer Name Policy Type Policy Number [...] s DA Active U 4-25 00:00: 00 [facility] No Known Drug Allergie s DA Active U 0 9-16 00:00: 00 [facility] No Known Drug Allergie s DA Active U 3-29 00:00: 00 [facility] No Known Drug Allergie s DA Active U 2019-06 2-16 00:00: 00 [facility] No Known Drug Allergie s DA Active U 2019-06 2-15 00:00: 00 [facility] No Known Drug Allergie s DA Active U 2019-06 00:00: 00 [facility] Trazodon e Propensi ty to adverse reaction s Active Other - See comments 10-06 00:00: 00 [facility] TRAZODON E DRUG INGREDI Active Other-Cmnt 10-06 00:00: 00 [facility] Social History Social Habit Start Date Stop Date Quantity Comments Source History of tobacco use Cigarette Smoker [facility] Alcoholic beverage intake 2023-11-07 00:00:00 2023-11-07 00:00:00 Current drinker of alcohol (finding) [facility] History of Social function 2023-11-07 00:00:00 2023-11-07 00:00:00 [facility] Exposure to SARS-CoV-2 (event) 2022-11-01 00:00:00 2022-11-11 13:57:00 Not sure [facility] Tobacco use and exposure 2022-08-10 00:00:00 2022-08-10 00:00:00 User of smokeless tobacco [facility] Alcohol intake 2022-08-10 00:00:00 2022-08-10 00:00:00 Current drinker of alcohol (finding) [facility] Tobacco Comment 2022-08-10 00:00:00 2022-08-10 00:00:00 1/2 a pack a day [facility] Sex [birth year] at 1970 00:00:00 1970 00:00:00 [facility] Smoking Status Start Date Stop Date Source Smokes tobacco daily 2022-08-10 00:00:00 [facility] Medications Ordered Medication Name Filled Medication Name [...] Routine [facility] foLIC acid (FOLATE) tablet 1 mg 08-12 15:00: 00 Yes 1mg 1 mg, Oral, DAILY, First dose on Thu08/12/22 at 0900, Until Discontinu ed, Routine [facility] foLIC acid 1 mg tablet 08-12 00:00: 00 09-12 04:59 :00 No [id number] 1mg Take 1 tablet by mouth in [...] Routine [facility] enoxaparin (LOVENOX) injection 40 mg 08-10 23:00: 00 Yes 40mg 40 mg, Subcutaneo us, DAILY, First dose on Thu08/10/22 at 1700, Until Discontinu ed, Routine [facility] NaCl 0.9% (NS) IV infusion 1,000 mL 08-10 15:00: 00 Yes 1000mL at 125 mL/hr, IV Infusion, CONTINUOUS , Starting on Thu08/10/22 at 0900, Until Discontinu ed, Routine [facility] foLIC acid (FOLATE) 5 mg in NaCl 0.9% (NS) piggyback 08-10 15:00: 00 08-11 16:14 :47 No 5mg IV Piggyback, DAILY, First dose on Thu08/10/22 at 0900, Until Discontinu ed, 50 mL Univers [facility] thiamine (VITAMIN B1) 100 mg in [...] Anxiety [facility] Sliding Scale Insulin-Reg ular + Fsbg Testing 08-10 13:30: 00 Yes Subcutaneo us, AC+HS, First dose on Thu08/10/22 at 0730, Until Discontinu ed, Routine [facility] oxazepam (SERAX) capsule 15 mg 08-10 12:08: 05 Yes 15mg 15 mg, Oral, Q4HPRN, Starting on Thu08/10/22 at 0608, Until Discontinu ed, Routine, Only while awake for DBP equal to or greater than 100, HR equal to or greater than 100. [facility] dextrose 10% (D10W) bolus infusion 250 [...] ONCE, 1 dose, On 04/06/22 at 1100, [facility] ondansetron (ZOFRAN (PF)) injection 4 mg 2021-06 0-16 15:45: 00 04-06 14:50 :00 No 4mg 4 mg, Slow IV Push, ONCE, 1 dose, On 04/06/22 at 1045, [facility] oxazepam (SERAX) capsule 15 mg 12-31 06:28: 17 01-01 06:29 :00 No 15mg 15 mg, Oral, Q12H TAPER, 2 doses, First dose on Thu12/31/21 at 0130, Last dose on Thu12/31/21 at 1330, Routine [facility] multivitami n tablet 12-31 00:00: 00 Yes [id number] 1{tbl} Take 1 tablet by mouth in the morning. [facility] thiamine 100 mg tablet 12-31 00:00: 00 Yes [id number] 100mg Take 1 tablet by mouth in the morning. [facility] aspirin 81 mg chewable tablet 12-31 00:00: 00 Yes [id number] 81mg Take 1 tablet by mouth in the morning. [facility] foLIC acid 1 mg tablet 12-31 00:00: 00 01-31 04:59 :00 No [id number] 1mg Take 1 tablet by mouth in the morning for 30 days. [facility] metFORMIN 500 mg tablet 12-30 00:00: 00 Yes [id number] 500mg Take 1 tablet by mouth in the morning and 1 tablet in the evening. Take with meals. [facility] aspirin chewable tablet 81 mg 12-29 14:00: 00 Yes 81mg 81 mg, Oral, DAILY, First dose on Thu12/29/21 at 0900, Until Discontinu ed, Routine [facility] sulfur hexafluorid e microsphr (LUMASON) injection 5 mL 12-29 13:45: 00 12-29 13:45 :00 No [id number] 5mL 5 mL, Intravenou s, ONCE, 1 [...] ONCE, 1 dose, On 12/28/21 at 1815, [facility] NaCl 0.9% (NS) [...] Systolic blood pressure 2023-12-13 05:16:00 125 mm[Hg] [facility] Diastolic blood pressure 2023-12-13 05:16:00 90 mm[Hg] [facility] Heart rate 2023-12-13 05:16:00 77 /min [facility] Body temperature 2023-12-13 05:16:00 36.06 Theresa [facility] Respiratory rate 2023-12-13 05:16:00 16 /min [facility] Oxygen saturation in Arterial blood by Pulse oximetry 2023-12-13 05:16:00 98 /min [facility] Body height 2023-12-13 01:35:00 157.5 cm [facility] Body weight 2023-12-13 01:35:00 65.772 kg [facility] BMI 2023-12-13 01:35:00 26.52 kg/m2 [facility] Systolic blood pressure 2023-11-05 21:00:00 106 mm[Hg] [facility] Diastolic blood pressure 2023-11-05 21:00:00 70 mm[Hg] [facility] Heart rate 2023-11-05 21:00:00 74 /min [facility] Body temperature 2023-11-05 21:00:00 36.5 Theresa [facility] Respiratory rate 2023-11-05 21:00:00 21 /min [facility] Oxygen saturation in Arterial blood by Pulse oximetry 2023-11-05 21:00:00 98 /min [facility] Body height 2023-11-05 19:59:00 160 cm [facility] Body weight 2023-11-05 19:59:00 63.504 kg [facility] BMI 2023-11-05 19:59:00 24.80 kg/m2 [facility] Systolic blood pressure 2022-11-11 20:31:31 116 mm[Hg] [facility] Diastolic blood pressure 2022-11-11 20:31:31 77 mm[Hg] [facility] Heart rate 2022-11-11 20:31:31 84 /min [facility] Respiratory rate 2022-11-11 20:31:31 12 /min [facility] Oxygen saturation in Arterial blood by Pulse oximetry 2022-11-11 20:31:31 90 /min [facility] Body temperature 2022-11-11 18:49:00 37.11 Theresa [facility] Body height 2022-11-11 18:49:00 160 cm [facility] Body weight 2022-11-11 18:49:00 68.04 kg [facility] BMI 2022-11-11 18:49:00 26.57 kg/m2 [facility] Body temperature 2022-08-11 14:00:00 36.5 Theresa [facility] Systolic blood pressure 2022-08-11 10:00:00 116 mm[Hg] [facility] Diastolic blood pressure 2022-08-11 10:00:00 71 mm[Hg] [facility] Heart rate 2022-08-11 10:00:00 70 /[facility] Respiratory rate 2022-08-11 10:00:00 16 /min [facility] Body weight 2022-08-11 10:00:00 65.499 kg [facility] BMI 2022-08-11 10:00:00 25.58 kg/m2 [facility] Oxygen saturation in Arterial blood by Pulse oximetry 2022-08-11 10:00:00 100 /min [facility] Body height 2022-08-10 22:12:00 160 cm [facility] Systolic blood pressure 2022-04-06 16:00:00 125 mm[Hg] [facility] Diastolic blood pressure 2022-04-06 16:00:00 75 mm[Hg] [facility] Heart rate 2022-04-06 16:00:00 87 /min [facility] Respiratory rate 2022-04-06 16:00:00 22 /min [facility] Oxygen saturation in Arterial blood by Pulse oximetry 2022-04-06 16:00:00 98 /min [facility] Body temperature 2022-04-06 14:41:00 37 Theresa [facility] Body height 2022-04-06 14:41:00 160 cm [facility] Body weight 2022-04-06 14:41:00 63.504 kg [facility] BMI 2022-04-06 14:41:00 24.80 kg/m2 [facility] Systolic blood pressure 2022-01-20 02:27:00 121 mm[Hg] [facility] Diastolic blood pressure 2022-01-20 02:27:00 75 mm[Hg] [facility] Heart rate 2022-01-20 02:27:00 79 /min [facility] Respiratory rate 2022-01-20 02:27:00 12 /min [facility] Oxygen saturation in Arterial blood by Pulse oximetry 2022-01-20 02:27:00 98 /min [facility] Body temperature 2022-01-19 22:19:00 36.44 Theresa [facility] Body weight 2022-01-19 22:19:00 60.328 kg [facility] BMI 2022-01-19 22:19:00 23.56 kg/m2 [facility] Systolic blood pressure 2021-12-30 20:52:00 134 mm[Hg] [facility] Diastolic blood pressure 2021-12-30 20:52:00 76 mm[Hg] [facility] Heart rate 2021-12-30 20:52:00 67 /min [facility] Body temperature 2021-12-30 20:26:00 36.67 Theresa [facility] Oxygen saturation in Arterial blood by Pulse oximetry 2021-12-30 20:26:00 99 /min [place] [facility] Respiratory rate 2021-12-30 16:21:00 18 /min [facility] Body weight 2021-12-30 08:27:00 60.464 kg [facility] BMI 2021-12-30 08:27:00 23.61 kg/m2 [facility] Body height 2021-12-29 01:29:00 160 cm [facility] Procedures Procedure Date / Time Performed Performing Clinician Source TROPONIN I 2023-12-13 03:32:00 Rafael Byrd [facility] XR CHEST 1 VW 2023-12-13 02:18:14 Rafael Byrd [facility] LIPASE 2023-12-13 02:07:00 Rafael Byrd [facility] TROPONIN I 2023-12-13 02:07:00 Rafael Byrd [facility] COMP. METABOLIC PANEL (99805) 2023-12-13 02:07:00 Rafael Byrd [facility] CBC WITH DIFF 2023-12-13 02:07:00 Rafael Byrd [facility] XR CHEST 1 VW 2023-11-05 20:09:00 Sulaiman Hawkins [facility] LIPASE 2023-11-05 20:01:00 Sulaiman Hawkins [facility] MAGNESIUM 2023-11-05 20:01:00 Sulaiman Hawkins [facility] TROPONIN I 2023-11-05 20:01:00 [facility] COMP. METABOLIC PANEL ([id number]) 2023-11-05 20:01:00 Sulaiman Hawkins [facility] CBC WITH DIFF 2023-11-05 20:01:00 Sulaiman Hawkins [facility] N-TERMINAL PRO-BNP 2023-11-05 20:01:00 Sulaiman Hawkins [facility] MAGNESIUM 2022-11-11 19:05:00 Jessica [facility] BASIC METABOLIC PANEL (NA, K, CL, CO2, GLUCOSE, BUN, CREATININE, CA) 2022-11-11 19:05:[facility]22-[facility]-11 19:05:00 Jessica [facility] CBC WITH DIFF 2022-11-11 19:05:00 Hemant Klein [facility] POCT GLUCOSE (AUTOMATED) 2022-08-11 13:36:00 Arvind Prado [facility] PHOSPHORUS 2022-08-11 10:35:00 Eve [facility] MAGNESIUM 2022-08-11 10:35:00 Eve [facility] AMMONIA, PLASMA 2022-08-11 10:35:00 Jessica Prado [facility] COMP. METABOLIC PANEL ([id number]) 2022-08-11 10:35:00 Eve [facility] CBC WITH DIFF 2022-08-11 10:35:00 Oswald Murphy [facility] POCT GLUCOSE (AUTOMATED) 2022-08-11 02:15:00 Arvind Prado [facility] POCT GLUCOSE (AUTOMATED) 2022-08-10 23:10:00 Arvind Prado [facility] POCT GLUCOSE (AUTOMATED) 2022-08-10 18:20:00 Arvind Prado [facility] POCT GLUCOSE (AUTOMATED) 2022-08-10 14:11:00 Arvind Prado [facility] POCT GLUCOSE (AUTOMATED) 2022-08-10 10:59:00 Gopal Driscoll [facility] COVID-19 (ID NOW RAPID TESTING) 2022-08-10 07:17:00 Rayray Driscoll [facility] LAB ONLY COVID INTERPRETATION 2022-08-10 07:17:00 Rayray Driscoll [facility] HB ECG ROUTINE & RHYTHM STRIP 2022-08-10 06:03:48 Rayray Driscoll [facility] URINALYSIS 2022-08-10 05:46:00 [facility]coll [facility] URINE DRUG (IMMUNOASSAY) - COMPREHENSIVE DRUG SCREEN W/O REFLEX 2022-08-10 05:45:00 Rayray Driscoll [facility] CREATINE KINASE 2022-08-10 05:16:00 [facility]22-08-10 05:16:00 [facility]coll [facility] MAGNESIUM 2022-08-10 05:16:00 Rayray Driscoll [facility] TROPONIN I 2022-08-10 05:16:00 Rayray Driscoll [facility] COMP. METABOLIC PANEL ([id number]) 2022-08-10 05:16:00 Rayray Driscoll [facility] ETHANOL 2022-08-10 05:16:00 Rayray Driscoll [facility] CBC WITH DIFF 2022-08-10 05:16:00 Rayray Driscoll [facility] N-TERMINAL PRO-BNP 2022-08-10 05:16:00 Rayray Driscoll [facility] CRITICAL CARE 2022-08-10 04:52:00 Rayray Driscoll [facility] XR CHEST 1 VW 2022-04-06 14:51:50 Diya Chowdhury [facility] LIPASE 2022-04-06 14:42:00 Diya Chowdhury [facility] TROPONIN I 2022-04-06 14:42:00 Diya Chowdhury [facility] COMP. METABOLIC PANEL ([id number]) 2022-04-06 14:42:00 Diya Chowdhury [facility] CBC WITH DIFF 2022-04-06 14:42:00 Diya Chowdhury [facility] PROTHROMBIN TIME / INR 2022-04-06 14:42:00 Diya Chowdhury [facility] ACTIVATED PARTIAL THRMPLAS NELDA 2022-04-06 14:42:00 Luciana [facility] LACTIC ACID WHOLE BLOOD 2022-01-20 00:22:00 Leticia Baldwin [facility] URINE DRUG (IMMUNOASSAY) - COMPREHENSIVE DRUG SCREEN 2022-01-19 23:10:00 Leticia Baldwin [facility] URINALYSIS 2022-01-19 23:10:00 Leticia Baldwin [facility] TROPONIN I 2022-01-19 23:00:00 Leticia [facility] COMP. METABOLIC PANEL ([id number]) 2022-01-19 23:00:00 Leticia Baldwin [facility] LITHIUM 2022-01-19 23:00:00 Leticia [facility] ETHANOL 2022-01-19 23:00:00 Leticia [facility] CBC WITH DIFF 2022-01-19 23:00:00 Leticia Baldwin [facility] COVID-19 (ID NOW RAPID TESTING) 2022-01-19 23:00:00 Leticia Baldwin [facility] CT HEAD WO CONTRAST 2022-01-19 22:49:00 Leticia Baldwin [facility] XR CHEST 1 VW 2022-01-19 22:41:00 Leticia Baldwin [facility] POCT GLUCOSE (AUTOMATED) 2022-01-19 22:25:00 Leticia Baldwin [facility] POCT GLUCOSE (AUTOMATED) 2021-12-30 21:55:00 Arvind Prado [facility] POCT GLUCOSE (AUTOMATED) 2021-12-30 16:21:00 Arvind Prado [facility] POCT GLUCOSE (AUTOMATED) 2021-12-30 12:30:00 Arvind Prado [facility] HEPATIC FUNCTION PANEL ([id number]) (ALB,T.PRO,BILI T,BU/BC,ALT,AST,ALK PHOS) 2021-12-30 09:28:00 Maira Gaitan [facility] POCT GLUCOSE (AUTOMATED) 2021-12-30 02:11:00 Arvind Prado [facility] POCT GLUCOSE (AUTOMATED) 2021-12-29 21:41:00 Arvind Prado [facility] POCT GLUCOSE (AUTOMATED) 2021-12-29 16:37:00 Arvind Prado [facility] TRANSTHORACIC ECHO (TTE) COMPLETE W/ CONTRAST 2021-12-29 13:05:00 Jessica Prado [facility] POCT GLUCOSE (AUTOMATED) 2021-12-29 12:41:00 Arvind Prado [facility] TROPONIN I 2021-12-29 09:42:00 Eve [facility] TROPONIN I 2021-12-29 04:55:00 Eve [facility] CT HEAD WO CONTRAST 2021-12-28 21:18:22 Poppy Renteria [facility] AMMONIA, PLASMA 2021-12-28 21:00:00 Pia Renteria [facility] COVID-19 (ID NOW RAPID TESTING) 2021-12-28 20:42:00 Pia Renteria [facility] LAB ONLY COVID INTERPRETATION 2021-12-28 20:42:00 Pia Renteria [facility] URINE DRUG (IMMUNOASSAY) - COMPREHENSIVE DRUG SCREEN W/O REFLEX 2021-12-28 20:42:00 Pia Renteria [facility] URINALYSIS 2021-12-28 20:40:00 Pia Renteria [facility] N-TERMINAL PRO-BNP 2021-12-28 20:40:00 Corina Renteria [facility] TROPONIN I 2021-12-28 20:40:00 Pia Renteria [facility] THYROID STIMULATING HORMONE 2021-12-28 20:40:00 Jessica Prado [facility] COMP. METABOLIC PANEL ([id number]) 2021-12-28 20:40:00 Pia Renteria [facility] LIPID PANEL ([id number])(TOTAL CHOLESTEROL, TRIGLYCERIDES, HDL) 2021-12-28 20:40:00 Demetrius Langford [facility] ETHANOL 2021-12-28 20:40:00 Demetrius Langford [facility] CBC WITH DIFF 2021-12-28 20:40:00 Pia Renteria [facility] GLYCOSYLATED HEMOGLOBIN (A1C) 2021-12-28 20:40:00 Jessica Prado [facility] PROTHROMBIN TIME / INR 2021-12-28 20:40:00 Lesly Renteria [facility] XR CHEST 1 VW 2021-12-28 20:16:00 Pia Renteria [facility] HB ECG ROUTINE & RHYTHM STRIP 2021-12-28 20:04:59 Pia Renteria [facility] Encounters Start Date/Time End Date/Time Encounter Type Admission Type Attending [facility] Care Department Encounter ID Source 2021-09-17 16:45:00 Inpatient [facility] [id number] [facility] 2020-06-06 16:07:00 Inpatient [facility] [id number] [facility] 2020-06-06 06:20:00 Inpatient [facility] [id number] [facility] 2020-06-05 19:35:00 Inpatient [facility] [id number] [facility] 2020-05-23 19:53:00 Inpatient [facility] [id number] [facility] 2020-05-23 19:53:00 Inpatient [facility] [id number] [facility] 2023-12-12 20:44:00 2023-12-13 00:22:00 Emergency Rafael Byrd [facility] [id number] [facility] 2023-11-05 14:54:00 2023-11-05 16:27:00 Emergency Sulaiman Hawkins [facility] [id number] [facility] 2022-11-11 13:50:00 2022-11-11 16:07:00 Emergency X HEMANT KLEIN [facility] [id number] [facility] 2022-11-11 13:50:00 2022-11-11 16:07:00 Emergency eHmant Klein [facility] [id number] [facility] 2022-10-14 20:59:00 2022-10-14 20:59:00 Emergency [facility] [id number] [facility] 2022-10-14 20:59:00 2022-10-14 20:59:00 Emergency Emergency Pan Pinto [facility] [id number] [facility] 2022-08-09 22:59:00 2022-08-11 13:02:00 Outpatient X JESSICA PRADO [facility] [id number] [facility] 2022-08-09 22:59:00 2022-08-11 13:02:00 Emergency Mukund DriscollJessica Avilez [facility] [id number] [facility] 2022-04-06 09:38:00 2022-04-06 11:42:00 Emergency X DIYA CHOWDHURY [facility] [id number] [facility] 2022-04-06 09:38:00 2022-04-06 11:42:00 Emergency Toddjose l Diya [facility] [id number] [facility] 2022-03-07 12:38:00 2022-03-07 12:38:00 Emergency [facility] [id number] [facility] 2022-03-07 12:38:00 2022-03-07 12:38:00 Emergency Emergency Fidel Cuellar [facility] [id number] [facility] 2022-01-19 17:18:00 2022-01-19 22:00:00 Emergency X DIRK YARBROUGH [facility] [id number] [facility] 2022-01-19 17:18:00 2022-01-19 22:00:00 Emergency Nicolasa Leticia Dirk Sutton [facility] [id number] [facility] 2021-12-31 00:00:00 2021-12-31 00:00:00 Transition of Care Bandar Faye MIKMarlon MASSIEL [facility] [id number] [id number] [facility] 2021-12-28 14:53:00 2021-12-30 17:42:00 Inpatient X JESSICA PRADO [facility] [id number] [facility] 2021-12-28 14:53:00 2021-12-30 17:42:00 Hospital Encounter Pia Renteria Jelani [facility] [id number] 350.1.13.10 4.2.7.2.686 [id number] [facility] 2021-09-17 16:47:00 2021-09-17 16:47:00 Emergency [facility] [id number] [facility] 2020-06-06 16:07:00 2020-06-06 16:07:00 Emergency [facility] [id number] [facility] Results Test Description Test Time Test Comments Results Result Co mments Source [facility] [id number] 02:57:27* Test Item Value Reference Range Interpretation Comme nts TROPONIN I (test code = 9318243615) 0.003 ng/mL <=0.034 JUAN ALBERTO (test code [...] of biotin. Lab Interpretation (test code = 61580-1) Normal [facility]. METABOLIC PANEL (63301)2023-12-13 02:46:25* Test Item Value Reference Range Interpretation Comme nts NA (test code = 0218101569) 144 mmol/L 135-145 K (test code = 8050649467) 3.9 mmol/L 3.5-5.0 CL (test code = 1635491237) 110 mmol/L 98-108 H CO2 TOTAL (test code = 5718498286) 20 mmol/L 23-31 L AGAP (test code = 5627434953) 14 2-16 BUN (test code = 7291636066) 13 mg/dL 7-23 GLUCOSE (test code = 9864496400) 163 mg/dL 70-110 H CREATININE (test code = 2160-0) 0.63 mg/dL 0.60-1.25 TOTAL BILI (test code = 6724148243) 0.3 mg/dL 0.1-1.1 CALCIUM (test code = 0113130039) 9.0 mg/dL 8.6-10.6 T PROTEIN (test code = 4113731424) 7.2 g/dL 6.3-8.2 ALBUMIN (test code = 2704782974) 4.1 g/dL 3.5-5.0 ALK PHOS (test code = 2885579940) 129 U/L 34-122 H ALTv (test code = 1742-6) 15 U/L 5-50 AST(SGOT) (test code = 6316961133) 34 U/L 13-40 eGFR (test code = 15978-2) 113.7 mL/min/1.73m2 CKD-EPI eGFR (2020). Assuming creatinine has been stable day-to-day for at least three months, the eGFR indicates Category G1 (>= 90 mL/min/1.73 m2) Lab Interpretation (test code = 71061-1) [facility], [id number] 02:45:25* Test Item Value Reference Range Interpretation Comme nts LIPASE (test code = 7528591714) 47 U/L 0-220 Lab Interpretation (test cod e = 96694-6) [facility] Taylor[facility] CHEST 1 [id number] 02:40:35History: chest pain . Exam: XR CHEST 1 VW Date: 12/12/2023 9:15 PM Ordering provider: RAFAEL BYRD Technical quality: Adequate Comparison: 11/05/2023. Findings: Frontal view of the chest is obtained. The cardiac silhouette is normal in size. No evidence of infiltrate,pleural effusion, CHF, or pneumothorax.[facility] TaylorCBC WITH [id number] 02:33:48* Test Item Value Reference Range Interpretation [...] 33.2 g/dL 31.2-35.0 RDW-SD (test code = 74957-1) 54.4 fL 38.5-51.6 H RDW-CV (test code = 788-0) 15.9 % 12.1-15.4 H PLT (test code = 777-3) 318 150-328 MPV (test code = 55576-5) 8.5 fL 9.8-13.0 L NRBC/100 WBC (test code = 5509446005) 0.0 0.0-10.0 NRBC x10^3 (test code = 5714652168) See_Comment [Automated messa ge] The system which generated this result transmitted reference range: 10*3/?L. The reference range was not used to interpret this result as normal/abnormal. GRAN MAT (NEUT) % (test code = 770-8) 50.1 % IMM GRAN % (test code = 8905458175) 0.40 % LYMPH % (test code = 736-9) 37.6 % MONO % (test code = 5905-5) 6.8 % EOS % (test code = 713-8) 4.1 % BASO % (test code = 706-2) 1.0 % GRAN MAT x10^3(ANC) (test code = 7595958486) 3.66 10*3/uL 1.99-6.95 IMM GRAN x10^3 (test code = 8812115727) 0.03 10*3/uL 0.00-0.06 LYMPH x10^3 (test code = 731-0) 2.75 10*3/uL 1.09-3.23 MONO x10^3 (test code = 742-7) 0.50 10*3/uL 0.36-1.02 EOS x10^3 (test code = 711-2) 0.30 10*3/uL 0.06-0.53 BASO x10^3 (test code = 704-7) 0.07 10*3/uL 0.01-0.09 Lab Interpretation (test code = 83314-6) [facility]normal [facility]ST 1 [id number] 20:15:30HISTORY: Chest pain. TECHNIQUE: Portable AP view of the chest is obtained. Comparison is beingmade with 04/06/2022 study. FINDINGS: No acute pneumonia. No pneumothorax or pleural effusion orpulmonarycongestion detected. Cardiac size is within normal limits.Prominent osteophytes are seen along right left vertebral margins at middleand lower thoracic spines. CONCLUSIONS: No signs of acute cardiopul monary disease.[facility] TaylorETHANOL2023-05-23 19:45:56 ALCOHOL<10mg/dL11/11/2022 2:45 PM [facility]<10 Octhkeam31-112 Toxic>100 Depression of FLOORHAND>400 [facility] (NA, K, CL, CO2, GLUCOSE, BUN, CREATININE, CA)2022-11-11 19:41:47* Test Item Value Reference Range Interpretation Comme nts NA (test code = 1698713573) 138 mmol/L 135-145 K (test code = 8988793354) 4.8 mmol/L 3.5-5.0 CL (test code = 5826396087) 103 mmol/L 98-108 CO2 TOTAL (test code = 0040529499) 26 mmol/L 23-31 AGAP (test code = 9423691362) 9 2-16 BUN (test code = 0083597344) 17 mg/dL 7-23 GLUCOSE (test code = 9164051741) 219 mg/dL 70-110 H CREATININE (test code = 6101402059) 0.72 mg/dL 0.60-1.25 CALCIUM (test code = 8036755174) 10.0 mg/dL 8.6-10.6 eGFR (test code = 6459076404) 114.6 mL/min/1.73m2 JUAN ALBERTO (test code = [...] imaging tests). Lab Interpretation (test code = 02788-3) Abnormal [facility] TaylorMAGNESIUM2023-05-23 19:41:47* Test Item Value Reference Range Interpretation Comme nts MAGNESIUM (test code = 7592413365) 1.8 mg/dL 1.7-2.4 Lab Interpretation (test cod e = 88442-7) Normal [facility] TaylorCB WITH [id number] 19:25:26* Test Item Value Reference Range Interpretation Comme nts WBC (test code = 6690-2) 6.82 See_Comment [Automated [employer]] The system which generated this result transmitted reference range: 4.20 - 10.70 10*3/?L. The reference range was not used to interpret this result as normal/abnormal. RBC (test code = 789-8) 4.98 See_Comment [Automated [employer]] The system which generated this result [...] 33.9 g/dL 31.2-35.0 RDW-SD (test code = 52877-0) 46.0 fL 38.5-51.6 RDW-CV (test code = 788-0) 13.5 % 12.1-15.4 PLT (test code = 777-3) 237 See_Comment [Automated [employer]] The system which generated this result transmitted reference range: 150 - 328 10*3/?L. The reference range was not used to interpret this result as normal/abnormal. MPV (test code = 21461-6) 8.9 fL 9.8-13.0 L NRBC/100 WBC (test code = 4939601186) 0.0 See_Comment [Automated me ssage] The system which generated this result transmitted reference range: 0.0 - 10.0 /100 WBCs. The reference range was not used to interpret this result as normal/abnormal. NRBC x10^3 (test code = 4293393820) See_Comment [Automated messa ge] The system which generated this result transmitted reference range: 10*3/?L. The reference range was not used to interpret this result as normal/abnormal. GRAN MAT (NEUT) % (test code = 770-8) 71.2 % IMM GRAN % (test code = 8881976511) 0.30 % LYMPH % (test code = 736-9) 18.2 % MONO % (test code = 5905-5) 8.4 % EOS % (test code = 713-8) 1.0 % BASO % (test code = 706-2) 0.9 % GRAN MAT x10^3(ANC) (test code = 4640008813) 4.86 10*3/uL 1.99-6.95 IMM GRAN x10^3 (test code = 9960928450) 0.00-0.06 LYMPH x10^3 (test code = 731-0) 1.24 10*3/uL 1.09-3.23 MONO x10^3 (test code = 742-7) 0.57 10*3/uL 0.36-1.02 EOS x10^3 (test code = 711-2) 0.07 10*3/uL 0.06-0.53 BASO x10^3 (test code = 704-7) 0.06 10*3/uL 0.01-0.09 Lab Interpretation (test code = 87234-7) Abnormal [facility] Taylor[facility], Urinalysis Rflx Cult/Muyix8007-45-50 22:20:00* Test Item Value Reference Range Interpretation Comme nts Color,Urine (test code = UCOL) Yellow Yellow Clarity,Urine (test code = UCLAR) Clear Clear Ph, Urine (test code = UPH) 7.0 5.0-9.0 N Specific [place],Urine (test code = USG) 1.020 1.005-1.030 N [...] code = ULEU) Negative mg/dL Negative Drug Screen,Gajir0502-77-11 22:20:00* Test Item Value Reference Range Interpretation [...] UPROP) Negative Negative Complete Blood Count Auto Asoy3221-70-34 21:21:00* Test Item Value Reference Range Interpretation [...] code = NRBCP) 0 % Comprehensive Metabolic Huift4665-99-63 21:21:00* Test Item Value Reference Range Interpretation [...] a race coefficient. Additional information canbe found at:[email or web address]_[email or web address] 5.pdf ([email or web address]) [Automated message] The system [...] = ALP) 134 U/L 46-116 H Ethanol Ivlyh4850-79-93 21:21:00* Test Item Value Reference Range Interpretation Comme nts Ethanol (test code = ETOH) < 3 mg/dL The pharmacologi yudy response to blood alcohol levels mayvary from individual to individual. The fatal concentrationhas been reported to be >400mg/dL. POCT GLUCOSE (AUTOMATED)2022-08-11 13:40:35* Test Item Value Reference Range Interpretation Comme nts POCT GLU (test code = 9671861961) 121 mg/dL 70-110 H Lab Interpretation (test cod e = 07291-8) Abnormal [facility] GLUCOSE (AUTOMATED)2022-08-11 02:18:58* Test Item Value Reference Range Interpretation Comme nts POCT GLU (test code = 7610512242) 183 mg/dL 70-110 H Lab Interpretation (test cod e = 40301-9) Abnormal [facility] GLUCOSE (AUTOMATED)2022-08-10 23:16:11* Test Item Value Reference Range Interpretation Comme nts POCT GLU (test code = 0920029494) 176 mg/dL 70-110 H Lab Interpretation (test cod e = 16860-5) Abnormal [facility] GLUCOSE (AUTOMATED)2022-08-10 18:22:51* Test Item Value Reference Range Interpretation Comme nts POCT GLU (test code = 6127413029) 165 mg/dL 70-110 H Lab Interpretation (test cod e = 41803-1) Abnormal [facility] GLUCOSE (AUTOMATED)2022-08-10 14:18:05* Test Item Value Reference Range Interpretation Comme nts POCT GLU (test code = 7575793535) 138 mg/dL 70-110 H Lab Interpretation (test cod e = 19138-9) Abnormal [facility] GLUCOSE (AUTOMATED)2022-08-10 11:01:21* Test Item Value Reference Range Interpretation Comme nts POCT GLU (test code = 7874840693) 143 mg/dL 70-110 H Lab Interpretation (test cod e = 88049-2) [facility]normal [facility] TaylorTROPONIN [id number] 06:51:18* Test Item Value Reference Range Interpretation Comme nts TROPONIN I (test code = 4252784832) 0.008 ng/mL <=0.034 JUAN ALBERTO (test code [...] of biotin. Lab Interpretation (test code = 42752-9) Normal [facility] TaylorN-TERMINAL MFX-YQI5555-16-19 06:47:37* Test Item Value Reference Range Interpretation Comme nts NT-proBNP (test code = 1377301451) 37 pg/mL <=125 JUAN ALBERTO (test code = JUAN ALBERTO) Biotin has been reported to cause a negative bias, interpret results relative to patient's use of biotin. Lab Interpretation (test code = 80388-3) Normal [facility] TaylorETHANOL2023-02-19 06:25:52 ALCOHOL<10mg/dL08/10/2022 12:25 AM [facility]<10 Ukjnqtuk76-719 Toxic>100 Depression of FLOORHAND>400 Fatalities ReportedBaylor [facility] & [facility] – TaylorCOM. METABOLIC PANEL (99865)2022-08-10 06:19:15* Test Item Value Reference Range Interpretation Comme nts NA (test code = 9494210548) 135 mmol/L 135-145 K (test code = 1574113716) 4.3 mmol/L 3.5-5.0 CL (test code = 5310906291) 98 mmol/L 98-108 CO2 TOTAL (test code = 0172668383) 30 mmol/L 23-31 AGAP (test code = 4410001478) 7 2-16 BUN (test code = 8002856539) 11 mg/dL 7-23 GLUCOSE (test code = 7713899325) 153 mg/dL 70-110 H CREATININE (test code = 8787422698) 0.77 mg/dL 0.60-1.25 TOTAL BILI (test code = 5227769575) 0.9 mg/dL 0.1-1.1 CALCIUM (test code = 0948170652) 10.0 mg/dL 8.6-10.6 T PROTEIN (test code = 6299099065) 7.7 g/dL 6.3-8.2 ALBUMIN (test code = 7129422120) 4.6 g/dL 3.5-5.0 ALK PHOS (test code = 0034427277) 92 U/L 34-122 ALTv (test code = 1742-6) 35 U/L 5-50 AST(SGOT) (test code = 6546509375) 42 U/L 13-40 H eGFR (test code = 9321011873) 106.1 mL/min/1.73m2 JUAN ALBERTO (test code = [...] imaging tests). Lab Interpretation (test code = 42010-3) [facility]normal [facility] TaylorMAGNESIUM2023-02-19 06:19:15* Test Item Value Reference Range Interpretation Comme nts MAGNESIUM (test code = 0336014863) 2.2 mg/dL 1.7-2.4 Lab Interpretation (test cod e = 73062-9) Normal [facility] TaylorLIPASE2023-02-19 06:18:55* Test Item Value Reference Range Interpretation Comme nts LIPASE (test code = 3714508335) 18 U/L 0-220 Lab Interpretation (test cod e = 07120-1) Normal [facility] TaylorCREATINE BNNFVS2615-06-12 06:18:55* Test Item Value Reference Range Interpretation Comme nts CK (test code = 5321099082) 174 U/L 33-194 Lab Interpretation (test cod e = 66764-3) Normal [facility] TaylorCBC WITH [id number] 06:02:35* Test Item Value Reference Range Interpretation [...] 32.4 g/dL 31.2-35.0 RDW-SD (test code = 66972-8) 50.2 fL 38.5-51.6 RDW-CV (test code = 788-0) 14.3 % 12.1-15.4 PLT (test code = 777-3) 241 See_Comment [Automated messa ge] The system which generated this result transmitted reference range: 150 - 328 10*3/?L. The reference range was not used to interpret this result as normal/abnormal. MPV (test code = 40318-7) 8.6 fL 9.8-13.0 L NRBC/100 WBC (test code = 7570024469) 0.0 See_Comment [Automated me ssage] The system which generated this result transmitted reference range: 0.0 - 10.0 /100 WBCs. The reference range was not used to interpret this result as normal/abnormal. NRBC x10^3 (test code = 4599208868) See_Comment [Automated messa ge] The system which generated this result transmitted reference range: 10*3/?L. The reference range was not used to interpret this result as normal/abnormal. GRAN MAT (NEUT) % (test code = 770-8) 63.9 % IMM GRAN % (test code = 9760943586) 0.50 % LYMPH % (test code = 736-9) 17.6 % MONO % (test code = 5905-5) 16.5 % EOS % (test code = 713-8) 0.7 % BASO % (test code = 706-2) 0.8 % GRAN MAT x10^3(ANC) (test code = 8845672710) 4.79 10*3/uL 1.99-6.95 IMM GRAN x10^3 (test code = 5031627601) 0.04 10*3/uL 0.00-0.06 LYMPH x10^3 (test code = 731-0) 1.32 10*3/uL 1.09-3.23 MONO x10^3 (test code = 742-7) 1.24 10*3/uL 0.36-1.02 H EOS x10^3 (test code = 711-2) 0.05 10*3/uL 0.06-0.53 L BASO x10^3 (test code = 704-7) 0.06 10*3/uL 0.01-0.09 Lab Interpretation (test code = 75136-5) Abnormal [facility] [id number] 15:15:32* Test Item Value Reference Range Interpretation Comments TROPONIN I (test code = 2180038815) 0.007 ng/mL See_Comment [Automated message] The system [...] of biotin. Lab Interpretation (test code = 34909-4) Normal [facility] TayloraPTT2022-10-16 15:08:29* Test Item Value Reference Range Interpretation [...] 30 seconds. Lab Interpretation (test code = 51799-3) Normal [facility] TaylorPROTHROMBIN TIME / [id number] 15:06:28* Test Item Value Reference Range Interpretation [...] the indications. Lab Interpretation (test code = 85738-8) Normal [facility] TaylorCOMP. METABOLIC PANEL (19600)2022-04-06 15:03:31* Test Item Value Reference Range Interpretation Comme [facility] NA (test code = 2943877483) 136 mmol/L 135-145 K (test code = 1299523630) 5.0 mmol/L 3.5-5 CL (test code = 1832921619) 104 mmol/L 98-108 CO2 TOTAL (test code = 1776365510) 21 mmol/L 23-31 L AGAP (test code = 9196265102) 2-16 BUN (test code = 0304572040) 11 mg/dL 7-23 GLUCOSE (test code = 4236947154) 162 mg/dL 70-110 H CREATININE (test code = 3077171313) 0.52 mg/dL 0.6-1.25 L TOTAL BILI (test code = 0218471727) 1.0 mg/dL 0.1-1.1 CALCIUM (test code = 4100309619) 9.3 mg/dL 8.6-10.6 T PROTEIN (test code = 0561670257) 7.4 g/dL 6.3-8.2 ALBUMIN (test code = 5741610725) 4.4 g/dL 3.5-5 ALK PHOS (test code = 2979266016) 134 U/L 34-122 H ALTv (test code = 1742-6) 17 U/L 5-50 AST(SGOT) (test code = 9822586287) 38 U/L 13-40 eGFR (test code = 6730262455) mL/min/1.73m2 JUAN ALBERTO (test code = JUAN [...] imaging tests). Lab Interpretation (test code = 59009-0) [facility]normal [facility] TaylorLIPASE, CUQKT8731-47-73 15:03:31* Test Item Value Reference Range Interpretation Comme nts LIPASE (test code = 5266339889) 29 U/L 0-220 Lab Interpretation (test cod e = 33418-9) Normal [facility] TaylorCBC WITH PRRV5617-51-49 14:51:49* Test Item Value Reference Range Interpretation Comme nts WBC (test code = 6690-2) See_Comment [Automated [employer] ge] The system which generated this result transmitted reference range: 4.20 - 10.70 10*3/?L. The reference range was not used to interpret this result as normal/abnormal. RBC (test code = 789-8) See_Comment [Automated [employer] ge] The system which generated this result [...] 34.0 g/dL 31.2-35 RDW-SD (test code = 23532-4) 45.9 fL 38.5-51.6 RDW-CV (test code = 788-0) 13.3 % 12.1-15.4 PLT (test code = 777-3) See_Comment [Automated [employer] ge] The system which generated this result transmitted reference range: 150 - 328 10*3/?L. The reference range was not used to interpret this result as normal/abnormal. MPV (test code = 26091-5) 8.4 fL 9.8-13 L NRBC/100 WBC (test code = 4719365627) See_Comment [Automated me ssage] The system which generated this result transmitted reference range: 0.0 - 10.0 /100 WBCs. The reference range was not used to interpret this result as normal/abnormal. NRBC x10^3 (test code = 6204007060) See_Comment [Automated messa ge] The system which generated this result transmitted reference range: 10*3/?L. The reference range was not used to interpret this result as normal/abnormal. GRAN MAT (NEUT) % (test code = 770-8) 63.0 % IMM GRAN % (test code = 0897782561) 0.50 % LYMPH % (test code = 736-9) 25.2 % MONO % (test code = 5905-5) 9.8 % EOS % (test code = 713-8) 0.3 % BASO % (test code = 706-2) 1.2 % GRAN MAT x10^3(ANC) (test code = 6619744190) 3.73 10*3/uL 1.99-6.95 IMM GRAN x10^3 (test code = 6783887013) 0.03 10*3/uL 0-0.06 LYMPH x10^3 (test code = 731-0) 1.49 10*3/uL 1.09-3.23 MONO x10^3 (test code = 742-7) 0.58 10*3/uL 0.36-1.02 EOS x10^3 (test code = 711-2) 0.06-0.53 L BASO x10^3 (test code = 704-7) 0.07 10*3/uL 0.01-0.09 Lab Interpretation (test code = 91965-8) [facility]normal [facility] Taylor[facility], Urinalysis Rflx Cult/Qktlp6628-13-19 13:53:00* Test Item Value Reference Range Interpretation Comme nts Color,Urine (test code = UCOL) Yellow Yellow Clarity,Urine (test code = UCLAR) Cloudy Clear A Ph, Urine (test code = UPH) 7.5 5.0-9.0 N Specific [place],Urine (test code = USG) 1.025 1.005-1.030 N [...] = ULEU) Negative mg/dL Negative UF REFLEXDrug Screen,Qcory9022-89-61 13:53:00* Test Item Value Reference Range Interpretation [...] UPROP) Negative Negative Complete Blood Count Auto Ljxp3011-47-51 12:58:00* Test Item Value Reference Range Interpretation [...] = NRBCP) 0 % Coronavirus PCR, COVID19 Nmota9388-86-69 12:58:00* Test Item Value Reference Range Interpretation Comme nts Coronavirus PCR, COVID19 Rapid (test code = SARSCOV2) Coronavirus PCR, COVID19 Rapid (test code = JMLOIXW56.1) Reference Range: Negative SARS-CoV-2 PCR Result: (test code = SARS-CoV-2 PCR Result:) Negative by RT-PCR COVID-19 Status: AsymptomaticComprehensive Metabolic Vrovp8334-60-69 12:58:00* Test Item Value Reference Range Interpretation [...] = ALP) 144 U/L 46-116 H Ethanol Xfedq1770-72-44 12:58:00* Test Item Value Reference Range Interpretation Comme nts Ethanol (test code = ETOH) < 3 mg/dL The pharmacologi yudy response to blood alcohol levels mayvary from individual to individual. The fatal concentrationhas been reported to be >400mg/dL. ZQSICYA6508-57-96 01:47:56* Test Item Value Reference Range Interpretation Comme nts [place] (test code = 4802953733) 0.7 mmol/L 0.6-1.2 JUAN ALBERTO (test code = JUAN ALBERTO) Toxic Range: ? Greater than 1.2 mmol/L Lab Interpretation (test code = 89386-0) [facility] TaylorTROPONIN O4039-06-88 00:26:53* Test Item Value Reference Range Interpretation Comments TROPONIN I (test code = 4055171420) 0.002 ng/mL See_Comment [Automated message] The system [...] of biotin. Lab Interpretation (test code = 90548-3) Normal [facility] TaylorETH[facility]OL2022-08-01 00:18:52 ALCOHOL<10mg/dL01/19/2022 7:18 PM [facility] Spechvof71-356 Toxic>100 Depression of FLOORHAND>400 Fatalities ReportedB[facility] – TaylorCOMP. METABOLIC PANEL (47426)2022-01-20 00:16:16* Test Item Value Reference Range Interpretation Comme nts NA (test code = 3709370529) 137 mmol/L 135-145 K (test code = 8212244968) 4.5 mmol/L 3.5-5 CL (test code = 5402698940) 103 mmol/L 98-108 CO2 TOTAL (test code = 9676497270) 26 mmol/L 23-31 AGAP (test code = 0791073488) 2-16 BUN (test code = 6276651617) 10 mg/dL 7-23 GLUCOSE (test code = 0954956831) 121 mg/dL 70-110 H CREATININE (test code = 4508687049) 0.65 mg/dL 0.6-1.25 TOTAL BILI (test code = 4813959929) 0.8 mg/dL 0.1-1.1 CALCIUM (test code = 3672415132) 11.4 mg/dL 8.6-10.6 H T PROTEIN (test code = 4715914451) 7.2 g/dL 6.3-8.2 ALBUMIN (test code = 8278719281) 4.6 g/dL 3.5-5 ALK PHOS (test code = 3640644962) 112 U/L 34-122 ALTv (test code = 1742-6) 19 U/L 5-50 AST(SGOT) (test code = 5511364903) 26 U/L 13-40 eGFR (test code = 0066202524) mL/min/1.73m2 JUAN ALBERTO (test code = JUAN [...] imaging tests). Lab Interpretation (test code = 80941-8) Abnormal [facility] WITH HZNW6775-61-87 23:43:54* Test Item Value Reference Range Interpretation Comme nts WBC (test code = 6690-2) See_Comment [Automated [employer] ge] The system which generated this result transmitted reference range: 4.20 - 10.70 10*3/?L. The reference range was not used to interpret this result as normal/abnormal. RBC (test code = 789-8) See_Comment [Automated [employer] ge] The system which generated this result [...] 34.4 g/dL 31.2-35 RDW-SD (test code = 98912-5) 44.0 fL 38.5-51.6 RDW-CV (test code = 788-0) 12.6 % 12.1-15.4 PLT (test code = 777-3) See_Comment [Automated [employer] ge] The system which generated this result transmitted reference range: 150 - 328 10*3/?L. The reference range was not used to interpret this result as normal/abnormal. MPV (test code = 58497-9) 9.1 fL 9.8-13 L NRBC/100 WBC (test code = 8871474349) See_Comment [Automated [employer] ssage] The system which generated this result transmitted reference range: 0.0 - 10.0 /100 WBCs. The reference range was not used to interpret this result as normal/abnormal. NRBC x10^3 (test code = 5100734732) See_Comment [Automated [employer] ge] The system which generated this result transmitted reference range: 10*3/?L. The reference range was not used to interpret this result as normal/abnormal. GRAN MAT (NEUT) % (test code = 770-8) 69.8 % IMM GRAN % (test code = 6751252967) 0.40 % LYMPH % (test code = 736-9) 18.0 % MONO % (test code = 5905-5) 10.9 % EOS % (test code = 713-8) 0.1 % BASO % (test code = 706-2) 0.8 % GRAN MAT x10^3(ANC) (test code = 2781330181) 5.58 10*3/uL 1.99-6.95 IMM GRAN x10^3 (test code = 4010411544) 0.03 10*3/uL 0-0.06 LYMPH x10^3 (test code = 731-0) 1.44 10*3/uL 1.09-3.23 MONO x10^3 (test code = 742-7) 0.87 10*3/uL 0.36-1.02 EOS x10^3 (test code = 711-2) 0.06-0.53 L BASO x10^3 (test code = 704-7) 0.06 10*3/uL 0.01-0.09 Lab Interpretation (test code = 16694-5) Abnormal [facility] GLUCOSE (AUTOMATED)2022-01-19 22:27:41* Test Item Value Reference Range Interpretation Comme nts POCT GLU (test code = [id number]) 123 mg/dL 70-110 H Lab Interpretation (test cod e = 43393-7) Abnormal [facility] GLUCOSE (AUTOMATED)2021-12-30 22:08:16* Test Item Value Reference Range Interpretation Comme nts POCT GLU (test code = [id number]) 167 mg/dL 70-110 H Lab Interpretation (test cod e = 75060-4) Abnormal [facility] GLUCOSE (AUTOMATED)2021-12-30 16:50:40* Test Item Value Reference Range Interpretation Comme nts POCT GLU (test code = 2789706812) 154 mg/dL 70-110 H Lab Interpretation (test cod e = 37842-8) Abnormal [facility] GLUCOSE (AUTOMATED)2021-12-30 12:38:43* Test Item Value Reference Range Interpretation Comme nts POCT GLU (test code = 4971821572) 164 mg/dL 70-110 H Lab Interpretation (test cod e = 89744-8) Abnormal [facility] GLUCOSE (AUTOMATED)2021-12-30 02:14:58* Test Item Value Reference Range Interpretation Comme nts POCT GLU (test code = 6293262057) 220 mg/dL 70-110 H Lab Interpretation (test cod e = 07674-1) Abnormal [facility] GLUCOSE (AUTOMATED)2021-12-29 21:50:02* Test Item Value Reference Range Interpretation Comme nts POCT GLU (test code = 4751113997) 191 mg/dL 70-110 H Lab Interpretation (test cod e = 61741-0) Abnormal [facility] GLUCOSE (AUTOMATED)2021-12-29 20:15:01* Test Item Value Reference Range Interpretation Comme nts POCT GLU (test code = 7641328610) 163 mg/dL 70-110 H Lab Interpretation (test cod e = 04988-1) [facility]2021-12-29 19:12:22* Test Item Value Reference Range Interpretation Comme nts Height (test code = 5230522431) in Weight (test code = 3796275217) lbs Systolic BP (test code = 0178222715) mmHg Diastolic BP (test code = 5617449566) mmHg Heart Rate (test code = 5382719272) bpm BSA (test code = 8618078322) 1.62 m2 Ao root annulus (test code = 0418277624) 2.45 cm Ao root diam (test code = 9251448640) 2.45 cm Aortic root (test code = 0566409698) 2.45 cm ACS (test code = 7589175396) 1.66 cm LA size (test code = 6987039371) 3.2 cm LVOT diameter (test code = 6980343999) 1.95 cm LVIDD (test code = 0514621697) 3.60 cm IVS (test code = 1557024547) 0.94 cm Interventricular Septum Diastolic Thickness by 2D (test code = 4111231) 0.94 cm LVPWD (test code = 0141573776) 0.80 cm PW (test code = 4561333726) 0.80 cm 0.6-1.1 EF(Teich) (test code = 6580167256) 52.80 % LVIDS (test code = 7155833921) 2.60 cm FS (test code = 4064731701) 27 % EF - 2D (test code = 03619302) 52.80 % LAV(MOD-sp4) (test code = 6606566402) 16.80 mL MV Peak E Jovany (test code = 4760638865) 46.1 cm/s E wave decelartion time (test code = 3916447576) 0.31 s MV Peak A Jovany (test code = 8696017512) 58.1 cm/s E/A ratio (test code = 4675000498) ratio MV E/e' septal (test code = 3845449619) 5.7 cm/s Tapse (test code = 4188129747) 1.60 cm LVOT stroke volume (test code = 6508736767) 52.10 cm3 LVOT peak jovany (test code = 3157205064) 110.6 cm/s LVOT mn grad (test code = 6821089530) mmHg AV LVOT peak gradient (test code = 7544014485) mmHg LVOT peak VTI (test code = 6157738489) 17.4 cm LV V1 mean (test code = 4028985839) 66.10 cm/s Aortic valve mean velocity (test code = 8380830270) 73.0 cm/s Ao peak jovany (test code = 1356238094) 124.6 cm/s Ao VTI (test code = 3722567076) 18.6 cm AV area by cont VTI (test code = 2721036701) 2.8 cm2 AV area peak jovany (test code = 7874843831) 2.7 cm2 Ao max PG (test code = 6602281456) 6.20 mm[Hg] AV peak gradient (test code = 5813827120) mmHg AV valve area (test code = 5498467399) 2.80 cm2 AV mean gradient (test code = 3013732270) mmHg Radiology Study observation (narrative) (test code = 53862-0) JUAN ALBERTO (test code = JUAN ALBERTO) [...] [facility]2021-12-29 12:50:31* Test Item Value Reference Range Interpretation Comme nts POCT GLU (test code = 9458425073) 141 mg/dL 70-110 H Lab Interpretation (test cod e = 00272-4) [facility]normal [facility] Taylor[facility]roponin [id number] 10:38:31* Test Item Value Reference Range Interpretation Comments TROPONIN I (test code = 8147939444) 0.003 ng/mL See_Comment [Automated message] The system [...] of biotin. Lab Interpretation (test code = 61931-5) Normal [facility] TaylorLIPID PANEL (77128)(TOTAL CHOLESTEROL, TRIGLYCERIDES, HDL)2021-12-29 05:56:47* Test Item Value Reference Range Interpretation Comme nts CHOL (test code = 9152850521) 168 mg/dL 120-200 HDL (test code = 0522789069) 102 mg/dL See_Comment [[employer]] The system which generated this result transmitted reference range: >=40. The reference range was not used to interpret this result as normal/abnormal. HDLC RATIO (test code = 8454771166) See_Comment [[employer]] The system which generated this result transmitted reference range: <=5.0. The reference range was not used to interpret this result as normal/abnormal. TRIG (test code = 1781677006) 55 mg/dL 30-170 LDL CHOL (test code = 08344-1) 55 mg/dL See_Comment [[employer]] The system which generated this result transmitted reference range: <=160. The reference range was not used to interpret this result as normal/abnormal. VLDL (test code = 9540627472) 11 mg/dL 5-60 Lab Interpretation (test code = 68958-6) [facility] Taylor[facility]yroid Stimulating Hormone (TSH)2021-12-29 05:40:29* Test Item Value Reference Range Interpretation Comme nts TSH (test code = 6612503087) See_Comment Biotin has been reported to cause a negative bias, interpret results relative to patient's use of biotin. [Automated message] The system which generated this result transmitted reference range: 0.45 - 4.70 mIU/L. The reference range was not used to interpret this result as normal/abnormal. Lab Interpretation (test code = 49755-3) Normal [facility] [id number] 05:34:29* Test Item Value Reference Range Interpretation Comments TROPONIN I (test code = 3246837182) 0.006 ng/mL See_Comment [Automated message] The system [...] of biotin. Lab Interpretation (test code = 43816-6) Normal [facility] TaylorETHANOL2022-07-10 04:43:01 ALCOHOL<10mg/dL12/28/2021 11:43 PM [facility] Greater than or equal to 80 mg/dL. NOTE: Whole blood values are approximately 10% to 15% lower than serum and plasma.[facility] Glycosylated Hemoglobin (A1C)2021-12-29 01:51:44* Test Item Value Reference Range Interpretation Comme nts HGB A1C (test code = 4548-4) 6.5 % 4-5.7 H JUAN ALBERTO (test code = JUAN ALBERTO) Reference RangesNormal: <5.7%Prediabetes: 5.7 - 6.4%Diabetes: > 6.5% Lab Interpretation (test code = 43153-5) [facility]normal [facility] [id number] 21:26:50* Test Item Value Reference Range Interpretation Comments TROPONIN I (test code = 7655015394) 0.002 ng/mL See_Comment [Automated message] The system [...] of biotin. Lab Interpretation (test code = 90132-6) Normal [facility] TaylorN-TERMINAL HAS-[id number] 21:23:29* Test Item Value Reference Range Interpretation Comme nts NT-proBNP (test code = 4477225834) 41 pg/mL See_Comment [Automated message] The system which generated this result transmitted reference range: <=125. The reference range was not used to interpret this result as normal/abnormal. JUAN ALBERTO (test code = JUAN ALBERTO) Biotin has been reported to cause a negative bias, interpret results relative to patient's use of biotin. Lab Interpretation (test code = 84175-0) Normal [facility] TaylorAMMONIA, [id number] 21:20:38* Test Item Value Reference Range Interpretation Comme nts AMMONIA (test code = 9287377387) 9-33 L Slight hemolysis Lab Interpretation (test code = 01408-2) Abnormal [facility] TaylorCOMP. METABOLIC PANEL (49924)2021-12-28 21:08:48* Test Item Value Reference Range Interpretation Comme nts NA (test code = 8351352533) 137 mmol/L 135-145 K (test code = 4182881875) 4.5 mmol/L 3.5-5 CL (test code = 4911170074) 97 mmol/L 98-108 L CO2 TOTAL (test code = 9591333147) 29 mmol/L 23-31 AGAP (test code = 9411582914) 2-16 BUN (test code = 3599749752) 10 mg/dL 7-23 GLUCOSE (test code = 4997095996) 188 mg/dL 70-110 H CREATININE (test code = 7594510912) 0.58 mg/dL 0.6-1.25 L TOTAL BILI (test code = 5515842503) 0.8 mg/dL 0.1-1.1 CALCIUM (test code = 8176335665) 10.5 mg/dL 8.6-10.6 T PROTEIN (test code = 0172875337) 7.6 g/dL 6.3-8.2 ALBUMIN (test code = 2494572510) 4.5 g/dL 3.5-5 ALK PHOS (test code = 5607189365) 107 U/L 34-122 ALTv (test code = 1742-6) 66 U/L 5-50 H AST(SGOT) (test code = 1522008466) 96 U/L 13-40 H eGFR (test code = 7154408589) mL/min/1.73m2 JUAN ALBERTO (test code = JUAN [...] imaging tests). Lab Interpretation (test code = 73655-1) Abnormal [facility] TaylorPROTHROMBIN TIME / [id number] 21:01:25* Test Item Value Reference Range Interpretation Comme nts PROTIME PATIENT (test code = 5964-2) See_Comment [[employer]] The system which generated this result transmitted reference range: 12.0 - 14.7 Seconds. The reference range was not used to interpret this result as normal/abnormal. INR (test code = 6301-6) Normal INR <1.1; Warfarin Therapeutic range 2.0 to 3.0 or 2.5 to 3.5, depending upon the indications. Lab Interpretation (test code = 04096-6) Normal [facility] TaylorCBC WITH [id number] 20:54:03* Test Item Value Reference Range Interpretation Comme nts WBC (test code = 6690-2) See_Comment [[employer]ated [employer]] The system which generated this result transmitted reference range: 4.20 - 10.70 10*3/?L. The reference range was not used to interpret this result as normal/abnormal. RBC (test code = 789-8) See_Comment [[employer]ated [employer]] The system which generated this result [...] 34.2 g/dL 31.2-35 RDW-SD (test code = 75355-0) 47.8 fL 38.5-51.6 RDW-CV (test code = 788-0) 13.3 % 12.1-15.4 PLT (test code = 777-3) See_Comment [[employer]] The system which generated this result transmitted reference range: 150 - 328 10*3/?L. The reference range was not used to interpret this result as normal/abnormal. MPV (test code = 29722-4) 8.6 fL 9.8-13 L NRBC/100 WBC (test code = 3820520067) See_Comment [Automated [employer]] The system which generated this result transmitted reference range: 0.0 - 10.0 /100 WBCs. The reference range was not used to interpret this result as normal/abnormal. NRBC x10^3 (test code = 2527767706) See_Comment [Automated mess[employer] ge] The system which generated this result transmitted reference range: 10*3/?L. The reference range was not used to interpret this result as normal/abnormal. GRAN MAT (NEUT) % (test code = 770-8) 64.1 % IMM GRAN % (test code = 6448481765) 0.40 % LYMPH % (test code = 736-9) 16.6 % MONO % (test code = 5905-5) 17.2 % EOS % (test code = 713-8) 0.2 % BASO % (test code = 706-2) 1.5 % GRAN MAT x10^3(ANC) (test code = 0933629844) 3.47 10*3/uL 1.99-6.95 IMM GRAN x10^3 (test code = 9042587656) 0-0.06 LYMPH x10^3 (test code = 731-0) 0.90 10*3/uL 1.09-3.23 L MONO x10^3 (test code = 742-7) 0.93 10*3/uL 0.36-1.02 EOS x10^3 (test code = 711-2) 0.06-0.53 L BASO x10^3 (test code = 704-7) 0.08 10*3/uL 0.01-0.09 Lab Interpretation (test code = 36100-4) Abnormal [facility] TaylorEthanol [id number] 21:08:00* Test Item Value Reference Range Interpretation Comme nts Ethanol (test code = ETOH) < 3 mg/dL The pharmacologi yudy response to blood alcohol levels mayvary from individual to individual. The fatal concentrationhas been reported to be >400mg/dL. Complete Blood Count Auto [id number] 17:33:00* Test Item Value Reference Range Interpretation [...] = NRBCP) 0 % UA, Urinalysis Rflx Cult/[id number] 17:33:00* Test Item Value Reference Range Interpretation Comme nts Color,Urine (test code = UCOL) Dark Yellow Yellow A Clarity,Urine (test code = UCLAR) Clear Clear Ph, Urine (test code = UPH) 6.5 5.0-9.0 N Specific [place],Urine (test code = USG) 1.015 1.005-1.030 N [...] = ULEU) Trace mg/dL Negative A Urine [id number] 17:33:00* Test Item Value Reference Range Interpretation Comme nts RBC,Urine (test code = URBCUF) None Seen /HPF 0-2 WBC,Urine (test code = UWBCUF) 0-5 /HPF 0-5 Epithelial Cell,Urine (test code = UECUF) 0-5 /HPF 0-5 Casts,Urine (test code = UCASTUF) None Seen /LPF None Seen Bacteria,Urine (test code = UBACTUF) None Seen /hpf None Seen Drug Screen,[id number] 17:33:00* Test Item Value Reference Range Interpretation [...] code = UPROP) Negative Negative Comprehensive Metabolic [id number] 17:33:00* Test Item Value Reference Range Interpretation [...] 101 U/L 46-116 N Sars-CoV-2/FLU A/B RSV [id number] 17:31:00* Test Item Value Reference Range Interpretation [...] SARS-CoV-2 PCR Result:) Negative by RT-PCR Drug Screen,[id number] 17:20:00* Test Item Value Reference Range Interpretation [...] UPROP) Negative Negative Complete Blood Count Auto [id number] 17:14:00* Test Item Value Reference Range Interpretation [...] code = NRBCP) 0 % Comprehensive Metabolic [id number] 17:14:00* Test Item Value Reference Range Interpretation [...] = ALP) 207 U/L 46-116 H Ethanol [id number] 17:14:00* Test Item Value Reference Range Interpretation Comme nts Ethanol (test code = ETOH) 192 mg/dL Complete Blood Count Auto [id number] 20:20:00* Test Item Value Reference Range Interpretation [...] code = NRBCP) 0 % Comprehensive Metabolic [id number] 20:20:00* Test Item Value Reference Range Interpretation [...] = ALP) 189 U/L 46-116 H Ethanol [id number] 20:20:00* Test Item Value Reference Range Interpretation Comme nts Ethanol (test code = ETOH) 10 mg/dL Sars-CoV-2/FLU A/B RSV [id number] 20:20:00* Test Item Value Reference Range Interpretation [...] Negative by Nucleic Acid Amplification UA, Urinalysis [id number] 20:20:00* Test Item Value Reference Range Interpretation Comme nts Color,Urine (test code = UCOL) Yellow Y Clarity,Urine (test code = UCLAR) Clear Clear PH,Urine (test code = UPH.XX) 7.0 5.5-8.5 Specific [place],Urine (test code = USG) 1.020 1.005-1.030 N [...] code = ULEU) Negative cells/uL Negative Drug Screen,[id number] 20:20:00* Test Item Value Reference Range Interpretation [...] RESULT TO FO LLOW CT head/brain wo [facility] [address] [place] [address] Patient Name: Walt Velazquez Medical Record#: [id number] Address: Homeless City/State/Zip: [place] [address]: Vinnie Navarro MD Insurance: Self Pay /Age/Sex: 1970/50/M Admit/Reg Date: 09/17/[address]: Vinnie Navarro MD Location: [facility]/ PCP: PcpMd KERWIN Jimenez Date of Service: 09/17/21 Order (s): CT head/brain wo con CPT Code: 95318 Report Number: [id number] Reason for Exam: Altered mental status Location [...] steady gait, in no apparent distress, T [facility] 2023-12-12 22:20:05 Pt removed all monitoring equipment T [facility] 2023-12-12 20:33:23 Pt brought in by [place] [employer] for medical clearance. [facility] check pt out on scene but after pt complained of chest pain. [place] [employer] brought pt in for clearance for county. Zeina Albrecht RN [facility] 2023-11-05 16:26:20 Pt discharged with diagnosis of CP. Printed and verbal instructions reviewed with and given to pt. Prescriptions given x 0. Pt verbalized understanding of teaching and recommended follow-up. Denies questions or concerns at this time. Pt ambulatory to holding room to await transportation at discharge. Appears in no apparent distress. No ataxia noted. [facility]. Renae Saldivar RN [facility] 2023-11-05 14:56:10 Walt Festus Velazquez Sr. is a 52 year old male arrive via [facility] c/o " throbbing ball in chest" since 0600 has been constant, pt immediately asks for food, Emani Gomez RN [facility]
--- NOTE | 2024-02-14 00:51 | EDPHYS ---
Physician Documentation [facility] Name: Walt Velazquez Age: 53 yrs Sex: Male : 1970 Arrival Date: 02/14/2024 Time: 00:42 Bed 15 Private MD: ED Physician Jules Lucero HPI: 02/13 00:48 This 53 yrs old Male presents to ER via EMS with complaints of Foot Pain. sp4 Historical: - Allergies: 00:47 Trazodone; al5 - PMHx: 00:47 Hypertensive disorder; Seizure; al5 - Immunization history:: Adult Immunizations unknown. - Infectious Disease History:: Denies. - Social history:: Smoking status: unknown. Vital Signs: 00:46 BP 94 / 69; Pulse 90; Resp 16; Temp 97.7; Pulse Ox 97% on R/A; Height 5 ft. 3 in. ; al5 Pain 7/10; 00:46 Pain Scale: Adult al5 MDM: 00:51 Patient medically screened. sp4 00:54 ED course: EXAM DESCRIPTION: RAD - Ankle Left 3 View - 02/13/2024 1:08 pm CLINICAL sp4 HISTORY: PAIN COMPARISON: FINDINGS: Moderate soft tissue swelling is seen about the ankle. Vascular calcification noted. No gross fracture or dislocation seen.. ED course: EXAM DESCRIPTION: RAD - Foot Left 3 View - 02/13/2024 1:08 pm CLINICAL HISTORY: PAIN COMPARISON: FINDINGS: Prior fifth toe amputation noted. Moderate vascular calcifications seen. Moderate soft tissue swelling. No acute fracture or dislocation. . ED course: EXAM DESCRIPTION: RAD - Forearm Right - 02/13/2024 1:08 pm CLINICAL HISTORY: PAIN COMPARISON: FINDINGS: Mild soft tissue swelling along the dorsum of the wrist. Heavy vascular atherosclerosis. Small olecranon spur. No acute fracture or dislocation. Review from recent visit. . Administered Medications: No medications were administered Disposition Summary: 02/14/24 00:51 Discharge Ordered Notes: Location: Home sp4 Problem: new sp4 Symptoms: have improved sp4 Condition: Stable sp4 Diagnosis - Alcohol abuse with intoxication sp4 Followup: sp4 - With: Private Physician - When: As needed - Reason: Discharge Instructions: - Discharge Summary Sheet sp4 - Alcohol Intoxication sp4 Forms: - Patient Portal Instructions sp4 Signatures: Jules Lucero MD MD sp4 Altagracia Soto, RN RN al5
--- NOTE | 2024-02-14 00:51 | ER ---
Nurse's Notes [facility] Name: Walt Velazquez Age: 53 yrs Sex: Male : 1970 Arrival Date: 02/14/2024 Time: 00:42 Bed 15 Private MD: Diagnosis: Alcohol abuse with intoxication Presentation: 02/13 00:46 Chief complaint: Patient states: c/o L foot pain. Coronavirus screen: At this time, the al5 client does not indicate any symptoms associated with coronavirus-19. Ebola Screen: No symptoms or risks identified at this time. Initial Sepsis Screen: Does the patient meet any 2 criteria? No. Patient's initial sepsis screen is negative. Does the patient have a suspected source of infection? No. Patient's initial sepsis screen is negative. Risk Assessment: Do you want to hurt yourself or someone else? Patient reports no desire to harm self or others. Onset of symptoms was February 14, 2024. 00:46 Method Of Arrival: EMS: [facility] al5 00:46 Acuity: LATASHA 4 al5 Triage Assessment: 00:47 General: Appears in no apparent distress. Behavior is calm, cooperative. General:. al5 Pain: Complains of pain in left foot Pain currently is 7 out of 10 on a pain scale. EENT: No signs and/or symptoms were reported regarding the EENT system. Neuro: Level of Consciousness is awake, alert, obeys commands, Oriented to person, place, time, situation. Cardiovascular: Capillary refill < 3 seconds Patient's skin is warm and dry. Respiratory: Airway is patent Respiratory effort is even, unlabored, Respiratory pattern is regular, symmetrical. GI: No signs and/or symptoms were reported involving the gastrointestinal system. : No signs and/or symptoms were reported regarding the genitourinary system. Derm: Skin is intact, slight swelling to L foot. Musculoskeletal: Swelling present in left foot Reports pain in left foot. Historical: - Allergies: 00:47 Trazodone; al5 - PMHx: 00:47 Hypertensive disorder; Seizure; al5 - Immunization history:: Adult Immunizations unknown. - Infectious Disease History:: Denies. - Social history:: Smoking status: unknown. Screenin:49 [facility] ED Fall Risk Assessment (Adult) History of falling in the last 3 months, al5 including since admission No falls in past 3 months (0 pts) Confusion or Disorientation No (0 pts) Intoxicated or Sedated No (0 pts) Impaired Gait No (0 pts) Mobility Assist Device Used No (0 pt) Altered Elimination No (0 pt) Score/Fall Risk Level 0 - 2 = Low Risk Oriented to surroundings, Maintained a safe environment, Hourly rounding (assess needs \T\ fall precautionary measures) done. Abuse screen: Denies threats or abuse. Denies injuries from another. Nutritional screening: No deficits noted. Tuberculosis screening: No symptoms or risk factors identified. Assessment: 00:49 Reassessment: see triage assessment. al5 Vital Signs: 00:46 BP 94 / 69; Pulse 90; Resp 16; Temp 97.7; Pulse Ox 97% on R/A; Height 5 ft. 3 in. ; al5 Pain 7/10; 00:46 Pain Scale: Adult al5 ED Course: 00:43 Patient arrived in ED. sp 00:45 Altagracia Soto, RN is Primary Nurse. al5 00:47 Triage completed. al5 00:48 Jules Lucero MD is Attending Physician. sp4 00:49 Arm band placed on right wrist. Patient placed in the treatment room, on a stretcher. al5 00:49 Patient has correct armband on for positive identification. Bed in low position. Call al5 light in reach. Side rails up X 1. Provided Education on: discharge. 00:49 No provider procedures requiring assistance completed. Patient did not have IV access al5 during this emergency room visit. Administered Medications: No medications were administered Medication: 00:49 VIS not applicable for this client. al5 Outcome: 00:51 Discharge ordered by . sp4 00:55 Discharged to home ambulatory, al5 00:55 Condition: good 00:55 Discharge instructions given to patient, Instructed on discharge instructions, follow up and referral plans. Demonstrated understanding of instructions, follow-up care, 00:55 Patient left the ED. al5 Signatures: Marge Abreu Sergey, MD MD sp4 Altagracia Soto, RN RN al5
[2024-02-14 01:13] VITALS: BP 94/69; TEMP 97.7; O2SAT 97
== END 2024-02-14 00:55 | disposition home or self-care (01) ==
LOC: ER 00:42
DX: F10.129 Alcohol abuse with intoxication, unspecified (principal)
CPT/HCPCS: 99283

== ENCOUNTER 2024-02-14 08:35 | Emergency (ER) | payer SELFPAY ==
--- OUTSIDE RECORDS SUMMARY | 2024-02-14 08:43 | XMS REPORT | Continuity of Care Document ---
Author Name Unknown Address [address] [facility] [address] [place] [address] [facility] Address [address] [facility] [place] [address] Care Team Providers Care Tai Chi Instructor Name Role Phone Pcp-None Primary Care Physician Unavailab Rafael Thomas MD Attending Clinician + Sulaiman Hawkins DO Attending Clinician [phone] HEMANT KLEIN Attending Clinician Unavailable Hemant Klein MD Attending Clinician [phone] [place] Attending Clinician Unavailab JESSICA Gallardo Attending Clinician Unavailable Rayray Driscoll MD Attending Clinician + Jessica Prado MD Attending Clinician [phone] Oswald Murphy MD Attending Clinician [phone] DIYA CHOWDHURY Attending Clinician Unavailab Diya Mackey DO Attending Clinician +[phone] Fidel Cuellar Attending Clinician Unavailable DIRK YARBROUGH Attending Clinician Unavailable Leticia Rowland Attending Clinician [phone] Dirk Yarbrough MD Attending Clinician Faye Portillo LVN Attending Clinician [phone] Pia Reddy Attending Clinician [phone] Vinnie Navarro Attending Clinician Unavailable OSWALD MURPHY Admitting Clinician Unavailable Oswald Murphy MD Admitting Clinician [phone] DIYA CHOWDHURY Admitting Clinician UnavailLeticia Gaytan Admitting Clinician Unavailable JESSICA PRADO Admitting Clinician Unavailable Jessica Prado MD Admitting Clinician [phone] Payers Payer Name Policy Type Policy Number Effective Date Expirati on Date Source Problems Condition Name Condition Details Condition Category Status Onset Date Resolution Date Last Treatment Date Treating Clinician Comments Source Alcohol withdrawal syndrome with complicati on Alcohol withdrawal syndrome with complicati on Disease Active 08-10 00:00: 00 [facility] Type 2 diabetes mellitus with other specified complicati on Type 2 diabetes mellitus with other specified complicati on Disease Active 12-29 00:00: 00 [facility] Dyslipidem ia Dyslipidem ia Disease Active 12-29 00:00: 00 [facility] Chest pain, unspecifie d type Chest pain, unspecifie d type Disease Active 12-28 00:00: 00 [facility] Priapism Priapism Disease Active 2013-06- 00:00: 00 [facility] Allergies, Adverse Reactions, Alerts Allergy Name Allergy Type Status Severity Reaction(s) Onset Date Inactive Date Treating Clinician Comments Source No Known Drug Allergie s DA Active U 4-25 00:00: 00 [facility] No Known Drug Allergie s DA Active U 0 9-16 00:00: 00 [facility] No Known Drug Allergie s DA Active U 3-29 00:00: 00 [facility] No Known Drug Allergie s DA Active U 2019-06 2-16 00:00: 00 [facility] No Known Drug Allergie s DA Active U 2019-06 2-15 00:00: 00 [facility] No Known Drug Allergie s DA Active U 2019-06 00:00: 00 [facility] Trazodon e Propensi ty to adverse reaction s Active Other - See comments 10-06 00:00: 00 [facility] TRAZODON E DRUG INGREDI Active Other-Cmnt 10-06 00:00: 00 [facility] Social History Social Habit Start Date Stop Date Quantity Comments Source History of tobacco use Cigarette Smoker [facility] Alcoholic beverage intake 2023-11-07 00:00:00 2023-11-07 00:00:00 Current drinker of alcohol (finding) [facility] History of Social function 2023-11-07 00:00:00 2023-11-07 00:00:00 [facility] Exposure to SARS-CoV-2 (event) 2022-11-01 00:00:00 2022-11-11 13:57:00 Not sure [facility] Tobacco use and exposure 2022-08-10 00:00:00 2022-08-10 00:00:00 User of smokeless tobacco [facility] Alcohol intake 2022-08-10 00:00:00 2022-08-10 00:00:00 Current drinker of alcohol (finding) [facility] Tobacco Comment 2022-08-10 00:00:00 2022-08-10 00:00:00 1/2 a pack a day [facility] Sex assigned at 1970 00:00:00 1970 00:00:00 [facility] Smoking Status Start Date Stop Date Source Smokes tobacco daily 2022-08-10 00:00:00 [facility] Medications Ordered Medication Name Filled Medication Name Start Date Stop Date Current Medication? Ordering Clinician Indication Dosage Frequency Signature (SIG) Comments Components Source NaCl 0.9% (NS) bolus infusion 1,000 mL 11-11 19:45: 00 11-11 20:23 :00 No 1000mL at 999 mL/hr, 1,000 mL, IV Piggyback, ONCE, 1 dose, On Thu11/11/22 at 1445, STAT [facility] multivitami n tablet 1 tablet 08-12 15:00: 00 Yes 1{tbl} 1 tablet, Oral, DAILY, First dose on Thu08/12/22 at 0900, Until Discontinu ed, Routine [facility] foLIC acid (FOLATE) tablet 1 mg 08-12 15:00: 00 Yes 1mg 1 mg, Oral, DAILY, First dose on Thu08/12/22 at 0900, Until Discontinu ed, Routine [facility] foLIC acid 1 mg tablet 08-12 00:00: 00 09-12 04:59 :00 No [id number] 1mg Take 1 tablet by mouth in the morning for 30 days. [facility] oxazepam (SERAX) [...] Thu08/13/22 at 0600, Routine [Order 2 End] [facility] thiamine (VITAMIN B1) tablet 100 mg 08-11 16:15: 00 Yes 100mg 100 mg, Oral, DAILY, First dose on Thu08/11/22 at 1015, Until Discontinu ed, Routine [facility] enoxaparin (LOVENOX) injection 40 mg 08-10 23:00: 00 Yes 40mg 40 mg, Subcutaneo us, DAILY, First dose on Thu08/10/22 at 1700, Until Discontinu ed, Routine [facility] NaCl 0.9% (NS) IV infusion 1,000 mL 08-10 15:00: 00 Yes 1000mL at 125 mL/hr, IV Infusion, CONTINUOUS , Starting on Thu08/10/22 at 0900, Until Discontinu ed, Routine [facility] foLIC acid (FOLATE) 5 mg in NaCl 0.9% (NS) piggyback 08-10 15:00: 00 08-11 16:14 :47 No 5mg IV Piggyback, DAILY, First dose on 08/10/22 at 0900, Until Discontinu ed, 50 mL [facility] thiamine (VITAMIN B1) 100 mg in NaCl 0.9% (NS) piggyback 08-10 15:00: 00 08-10 16:08 :00 No 100mg IV Piggyback, DAILY, 1 dose, First dose on Thu08/10/22 at 0900, 50 mL [facility] LORazepam (ATIVAN) injection 2 mg 08-10 14:52: 57 Yes 2mg 2 mg, Slow IV Push, Q4HPRN, Starting on Thu08/10/22 at 0852, Until Discontinu ed, Routine, Seizures, Agitation, Anxiety [facility] Sliding Scale Insulin-Reg ular + Fsbg Testing 08-10 13:30: 00 Yes Subcutaneo us, AC+HS, First dose on Thu08/10/22 at 0730, Until Discontinu ed, Routine [facility] oxazepam (SERAX) capsule 15 mg 08-10 12:08: 05 Yes 15mg 15 mg, Oral, Q4HPRN, Starting on Thu08/10/22 at 0608, Until Discontinu ed, Routine, Only while awake for DBP equal to or greater than 100, HR equal to or greater than 100. [facility] dextrose 10% (D10W) bolus [...] blood glucose is < 80 mg/dL, repeat.
[facility] glucagon (GLUCAGEN DIAGNOSTIC KIT) injection 1 mg 08-10 12:03: 20 Yes 1mg 1 mg, Intramuscu lar, PRN, Starting on Thu08/10/22 at 0603, Until Discontinu ed, JACIEL, Blood Glucose < or = 70 mg/dL and patient is NPO, unable to swallow or has mental changes. [facility] ondansetron (ZOFRAN (PF)) injection 4 mg 08-10 12:02: 53 Yes 4mg 4 mg, Slow IV Push, Q6HPRN, Starting on Thu08/10/22 at 0602, Until Discontinu ed, Routine, Nausea and Vomiting (N/V) [facility] ibuprofen (MOTRIN IB) tablet 200 mg 08-10 12:02: 45 Yes 200mg 200 mg, Oral, Q6HPRN, Starting on Thu08/10/22 at 0602, Until Discontinu ed, Routine, Pain (scale 1-3) [facility] NaCl 0.9% (NS) bolus infusion 1,000 mL 08-10 10:15: 00 08-10 13:00 :00 No 1000mL at 999 mL/hr, 1,000 mL, IV Infusion, ONCE, 1 dose, On Thu08/10/22 at 0415, STAT [facility] LORazepam (ATIVAN) injection 0.5 mg 08-10 09:15: 00 08-10 09:19 :00 No .5mg 0.5 mg, Slow IV Push, ONCE, 1 dose, On Thu08/10/22 at 0315, STAT [facility] LORazepam (ATIVAN) injection 1 mg 08-10 08:00: 00 08-10 07:05 :00 No 1mg 1 mg, Slow IV Push, ONCE NOW, 1 dose, On 08/10/22 at 0200, STAT [facility] thiamine (VITAMIN B1) injection 100 mg 08-10 06:45: 00 08-10 06:52 :00 No 100mg 100 mg, Intravenou s, ONCE, 1 dose, [facility]22 [facility] 00[facility] 1 mg 08-10 05:15: 00 08-10 05:22 :00 No 1mg 1 mg, Slow IV Push, ONCE, 1 dose, On 08/09/22 at 2315, STAT [facility] ketorolac (TORADOL) injection 15 mg 2021-06-16 16:00: 00 04-06 14:50 :00 No 15mg 15 mg, Slow IV Push, ONCE, 1 dose, On 04/06/22 at 1100, [facility] ondansetron (ZOFRAN (PF)) injection 4 mg 2021-0616 15:45: 00 04-06 14:50 :00 No 4mg 4 mg, Slow IV Push, ONCE, 1 dose, On 04/06/22 at 1045, [facility] oxazepam (SERAX) capsule 15 mg 12-31 06:28: 17 01-01 06:29 :00 No 15mg 15 mg, Oral, Q12H TAPER, 2 doses, First dose on Thu12/31/21 at 0130, Last dose on Thu12/31/21 at 1330, Routine [facility] multivitami n tablet 12-31 00:00: 00 Yes [id number] 1{tbl} Take 1 tablet by mouth in the morning. [facility] thiamine 100 mg tablet 12-31 00:00: 00 Yes [id number] 100mg Take 1 tablet by mouth in the morning. [facility] aspirin 81 mg chewable tablet 12-31 00:00: 00 Yes [id number] 81mg Take 1 tablet by mouth in the morning. [facility] foLIC acid 1 mg tablet 12-31 00:00: 00 01-31 04:59 :00 No [id number] 1mg Take 1 tablet by mouth in the morning for 30 days. [facility] metFORMIN 500 mg tablet 12-30 00:00: 00 Yes [id number] 500mg Take 1 tablet by mouth in the morning and 1 tablet in the evening. Take with meals. [facility] aspirin chewable tablet 81 mg 12-29 14:00: 00 Yes 81mg 81 mg, Oral, DAILY, First dose on 12/29/21 at 0900, Until Discontinu ed, Routine [facility] sulfur hexafluorid e microsphr (LUMASON) injection 5 mL 12-29 13:45: 00 12-29 13:45 :00 No [id number] 5mL 5 mL, Intravenou s, ONCE, 1 dose, On 12/29/21 at 0845, Routine
membership director approving Restricted medication : STEFANIE GORMAN [facility] enoxaparin (LOVENOX) injection 40 mg 12-29 13:00: 00 Yes 40mg 40 mg, Subcutaneo us, Q24H, First dose on Thu12/29/21 at 0800, Until Discontinu ed, Routine [facility] Sliding Scale Insulin - Lispro (HumaLOG) + Fsbg Testing 12-29 13:00: 00 Yes Subcutaneo us, TID MEALS+HS, First dose on 12/29/21 at 0800, Until Discontinu ed, Routine [facility] diazePAM (VALIUM) injection 10 mg 12-29 05:30: 00 12-29 04:40 :00 No 10mg 10 mg, Intravenou s, ONCE, 1 dose, On 12/29/21 at 0030, Routine [facility] diazePAM (VALIUM) injection 10 mg 12-29 04:15: 00 12-29 03:17 :00 No 10mg 10 mg, Intravenou s, ONCE, 1 dose, On 12/28/21 at 2315, Routine [facility] diazePAM (VALIUM) injection 5 mg 12-29 03:45: 01 Yes 5mg 5 mg, Intravenou s, QIDPRN, Starting on 12/28/21 at 2245, Until Discontinu ed, Routine, Seizures, Agitation [facility] foLIC acid (FOLATE) tablet 1 mg 12-29 03:45: 00 Yes 1mg 1 mg, Oral, DAILY, First dose on 12/28/21 at 2245, Until Discontinu ed, Routine [facility] thiamine (VITAMIN B1) tablet 100 mg 12-29 03:45: 00 Yes 100mg 100 mg, Oral, DAILY, First dose (after last modificati on) on 12/28/21 at 2245, Until Discontinu ed, Routine [facility] glucagon (GLUCAGEN DIAGNOSTIC KIT) injection 1 mg 12-29 03:42: 19 Yes 1mg 1 mg, Intramuscu lar, PRN, Starting on 12/28/21 at 2242, Until Discontinu ed, JACIEL, Blood Glucose < or = 70 mg/dL and patient is unable to swallow or has mental changes. [facility] dextrose 10% (D10W) bolus [...] blood glucose is < 80 mg/dL, repeat.
[facility] LORazepam (ATIVAN) injection 1 mg 12-29 03:30: 00 12-29 02:32 :00 No 1mg 1 mg, Intravenou s, ONCE, 1 dose, On 12/28/21 at 2230, Routine
Is the medication being used for status epilepticu s? No [facility] oxazepam (SERAX) capsule 15 mg 12-29 00:28: 20 Yes 15mg 15 mg, Oral, Q4HPRN, Starting on 12/28/21 at 1928, Until Discontinu ed, Routine, Only while awake for DBP equal to or greater than 100, HR equal to or greater than 100. [facility] ondansetron (ZOFRAN (PF)) injection 4 mg 12-29 00:23: 47 Yes 4mg 4 mg, Slow IV Push, Q6HPRN, Starting on 12/28/21 at 1923, Until Discontinu ed, Routine, Nausea and Vomiting (N/V) [facility] acetaminoph en (TYLENOL) tablet 650 mg 12-29 00:23: 37 Yes 650mg 650 mg, Oral, Q6HPRN, Starting on 12/28/21 at 1923, Until Discontinu ed, Routine, Pain (scale 1-3), Temp > 38.5 C [facility] chlordiazeP OXIDE (LIBRIUM) capsule 25 mg 12-28 23:15: 00 12-28 23:24 :00 No 25mg 25 mg, Oral, ONCE, 1 dose, On 12/28/21 at 1815, JACIEL [facility] NaCl 0.9% (NS) bolus infusion 2,000 mL 12-28 22:45: 00 12-28 23:18 :00 No 2000mL at 999 mL/hr, 2,000 mL, IV Infusion, ONCE, 1 dose, On 12/28/21 at 1745, JACIEL [facility] LORazepam (ATIVAN) injection 1 mg 12-28 20:45: 00 12-28 20:49 :00 No 1mg 1 mg, Slow IV Push, ONCE, 1 dose, On 12/28/21 at 1545, STAT
Is the medication being used for status epilepticu s? No [facility] acetaminoph en (TYLENOL) 500 mg tablet 10-06 00:00: 00 Yes 500mg Take 1 Tab by mouth every 6 (six) hours as needed for Pain. [facility] Vital Signs Vital Name Observation Time Observation Value Comments S ource Systolic blood pressure 2023-12-13 05:16:00 125 mm[Hg] [facility] Diastolic blood pressure 2023-12-13 05:16:00 90 mm[Hg] [facility] Heart rate 2023-12-13 05:16:00 77 /min [facility] Body temperature 2023-12-13 05:16:00 36.06 Theresa [facility] Respiratory rate 2023-12-13 05:16:00 16 /min [facility] Oxygen saturation in Arterial blood by Pulse oximetry 2023-12-13 05:16:00 98 /min [facility] Body height 2023-12-13 01:35:00 157.5 cm [facility] Body weight 2023-12-13 01:35:00 65.772 kg [facility] BMI 2023-12-13 01:35:00 26.52 kg/m2 [facility] Systolic blood pressure 2023-11-05 21:00:00 106 mm[Hg] [facility] Diastolic blood pressure 2023-11-05 21:00:00 70 mm[Hg] [facility] Heart rate 2023-11-05 21:00:00 74 /min [facility] Body temperature 2023-11-05 21:00:00 36.5 Theresa [facility] Respiratory rate 2023-11-05 21:00:00 21 /min [facility] Oxygen saturation in Arterial blood by Pulse oximetry 2023-11-05 21:00:00 98 /min [facility] Body height 2023-11-05 19:59:00 160 cm [facility] Body weight 2023-11-05 19:59:00 63.504 kg [facility] BMI 2023-11-05 19:59:00 24.80 kg/m2 [facility] Systolic blood pressure 2022-11-11 20:31:31 116 mm[Hg] [facility] Diastolic blood pressure 2022-11-11 20:31:31 77 mm[Hg] [facility] Heart rate 2022-11-11 20:31:31 84 /min [facility] Respiratory rate 2022-11-11 20:31:31 12 /min [facility] Oxygen saturation in Arterial blood by Pulse oximetry 2022-11-11 20:31:31 90 /min [facility] Body temperature 2022-11-11 18:49:00 37.11 Theresa [facility] Body height 2022-11-11 18:49:00 160 cm [facility] Body weight 2022-11-11 18:49:00 68.04 kg [facility] BMI 2022-11-11 18:49:00 26.57 kg/m2 [facility] Body temperature 2022-08-11 14:00:00 36.5 Theresa [facility] Systolic blood pressure 2022-08-11 10:00:00 116 mm[Hg] [facility] Diastolic blood pressure 2022-08-11 10:00:00 71 mm[Hg] [facility] Heart rate 2022-08-11 10:00:00 70 /min [facility] Respiratory rate 2022-08-11 10:00:00 16 /min [facility] Body weight 2022-08-11 10:00:00 65.499 kg [facility] BMI 2022-08-11 10:00:00 25.58 kg/m2 [facility] Oxygen saturation in Arterial blood by Pulse oximetry 2022-08-11 10:00:00 100 /min [facility] Body height 2022-08-10 22:12:00 160 cm [facility] Systolic blood pressure 2022-04-06 16:00:00 125 mm[Hg] [facility] Diastolic blood pressure 2022-04-06 16:00:00 75 mm[Hg] [facility] Heart rate 2022-04-06 16:00:00 87 /min [facility] Respiratory rate 2022-04-06 16:00:00 22 /min [facility] Oxygen saturation in Arterial blood by Pulse oximetry 2022-04-06 16:00:00 98 /min [facility] Body temperature 2022-04-06 14:41:00 37 Theresa [facility] Body height 2022-04-06 14:41:00 160 cm [facility] Body weight 2022-04-06 14:41:00 63.504 kg [facility] BMI 2022-04-06 14:41:00 24.80 kg/m2 [facility] Systolic blood pressure 2022-01-20 02:27:00 121 mm[Hg] [facility] Diastolic blood pressure 2022-01-20 02:27:00 75 mm[Hg] [facility] Heart rate 2022-01-20 02:27:00 79 /min [facility] Respiratory rate 2022-01-20 02:27:00 12 /min [facility] Oxygen saturation in Arterial blood by Pulse oximetry 2022-01-20 02:27:00 98 /min [facility] Body temperature 2022-01-19 22:19:00 36.44 Theresa [facility] Body weight 2022-01-19 22:19:00 60.328 kg [facility] BMI 2022-01-19 22:19:00 23.56 kg/m2 [facility] Systolic blood pressure 2021-12-30 20:52:00 134 mm[Hg] [facility] Diastolic blood pressure 2021-12-30 20:52:00 76 mm[Hg] [facility] Heart rate 2021-12-30 20:52:00 67 /min [facility] Body temperature 2021-12-30 20:26:00 36.67 Theresa [facility] Oxygen saturation in Arterial blood by Pulse oximetry 2021-12-30 20:26:00 99 /min [facility] Respiratory rate 2021-12-30 16:21:00 18 /min [facility] Body weight 2021-12-30 08:27:00 60.464 kg [facility] BMI 2021-12-30 08:27:00 23.61 kg/m2 [facility] Body height 2021-12-29 01:29:00 160 cm [facility] Procedures Procedure Date / Time Performed Performing Clinician Source TROPONIN I 2023-12-13 03:32:00 Rafael Byrd [facility] XR CHEST 1 VW 2023-12-13 02:18:14 Rafael Byrd [facility] LIPASE 2023-12-13 02:07:00 Rafael Byrd [facility] TROPONIN I 2023-12-13 02:07:00 Rafael Byrd [facility] COMP. METABOLIC PANEL ([id number]) 2023-12-13 02:07:00 Rafael Byrd [facility] CBC WITH DIFF 2023-12-13 02:07:00 Rafael Byrd [facility] XR CHEST 1 VW 2023-11-05 20:09:00 Sulaiman Hawkins [facility] LIPASE 2023-11-05 20:01:00 Sulaiman Hawkins [facility] MAGNESIUM 2023-11-05 20:01:00 [facility] TROPONIN I 2023-11-05 20:01:00 [facility] COMP. METABOLIC PANEL ([id number]) 2023-11-05 20:01:00 Sulaiman Hawkins [facility] CBC WITH DIFF 2023-11-05 20:01:00 Sulaiman Hawkins [facility] N-TERMINAL PRO-BNP 2023-11-05 20:01:00 Sulaiman Hawkins [facility] MAGNESIUM 2022-11-11 19:05:00 Ernie [facility] BASIC METABOLIC PANEL (NA, K, CL, CO2, GLUCOSE, BUN, CREATININE, CA) 2022-11-11 19:05:[facility]11 [facility] 2022-11-11 19:05:00 Hemant Klein [facility] POCT GLUCOSE (AUTOMATED) 2022-08-11 13:36:00 Arvind Prado [facility] PHOSPHORUS 2022-08-11 10:35:00 Eve Bro[facility] MAGNESIUM 2022-08-11 10:35:00 Eve [facility] AMMONIA, PLASMA 2022-08-11 10:35:00 Eve Jessica [facility] COMP. METABOLIC PANEL ([id number]) 2022-08-11 10:35:00 Eve [facility] CBC WITH DIFF 2022-08-11 10:35:00 Oswald Murphy [facility] POCT GLUCOSE (AUTOMATED) 2022-08-11 02:15:00 Arvind Prado [facility] POCT GLUCOSE (AUTOMATED) 2022-08-10 23:10:00 Arvind Prado [facility] POCT GLUCOSE (AUTOMATED) 2022-08-10 18:20:00 Arvind Prado [facility] POCT GLUCOSE (AUTOMATED) 2022-08-10 14:11:00 Arvind Prado [facility] POCT GLUCOSE (AUTOMATED) 2022-08-10 10:59:00 Gopal Driscoll [facility] COVID-19 (ID NOW RAPID TESTING) 2022-08-10 07:17:00 Rayray Driscoll [facility] LAB ONLY COVID INTERPRETATION 2022-08-10 07:17:00 Rayray Driscoll [facility] HB ECG ROUTINE & RHYTHM STRIP 2022-08-10 06:03:48 Rayray Driscoll [facility] URINALYSIS 2022-08-10 05:46:00 [facility] URINE DRUG (IMMUNOASSAY) - COMPREHENSIVE DRUG SCREEN W/O REFLEX 2022-08-10 05:45:00 Rayray Driscoll [facility] CREATINE KINASE 2022-08-10 05:16:00 [facility]-10 05:16:00 [facility] MAGNESIUM 2022-08-10 05:16:00 [facility] TROPONIN I 2022-08-10 05:16:00 [facility] COMP. METABOLIC PANEL ([id number]) 2022-08-10 05:16:00 Rayray Driscoll [facility] ETHANOL 2022-08-10 05:16:00 Rayray Driscoll [facility] CBC WITH DIFF 2022-08-10 05:16:00 Rayray Driscoll [facility] N-TERMINAL PRO-BNP 2022-08-10 05:16:00 Rayray Driscoll [facility] CRITICAL CARE 2022-08-10 04:52:00 Rayray Driscoll [facility] XR CHEST 1 VW 2022-04-06 14:51:50 Diya Chowdhury [facility] LIPASE 2022-04-06 14:42:00 Diya Chowdhury [facility] TROPONIN I 2022-04-06 14:42:00 Diya Chowdhury [facility] COMP. METABOLIC PANEL ([id number]) 2022-04-06 14:42:00 Diya Chowdhury [facility] CBC WITH DIFF 2022-04-06 14:42:00 Diya Chowdhury [facility] PROTHROMBIN TIME / INR 2022-04-06 14:42:00 Luciana [facility] ACTIVATED PARTIAL THRMPLAS NELDA 2022-04-06 14:42:00 Luciana [facility] LACTIC ACID WHOLE BLOOD 2022-01-20 00:22:00 Leticia Baldwin [facility] URINE DRUG (IMMUNOASSAY) - COMPREHENSIVE DRUG SCREEN 2022-01-19 23:10:00 Leticia Baldwin [facility] URINALYSIS 2022-01-19 23:10:00 Leticia Baldwin [facility] TROPONIN I 2022-01-19 23:00:00 [facility] COMP. METABOLIC PANEL ([id number]) 2022-01-19 23:00:00 Leticia Baldwin [facility] LITHIUM 2022-01-19 23:00:00 Leticia Baldwin [facility] ETHANOL 2022-01-19 23:00:00 [facility] CBC WITH DIFF 2022-01-19 23:00:00 Leticia Baldwin [facility] COVID-19 (ID NOW RAPID TESTING) 2022-01-19 23:00:00 Leticia Baldwin [facility] CT HEAD WO CONTRAST 2022-01-19 22:49:00 Leticia Baldwin [facility] XR CHEST 1 VW 2022-01-19 22:41:00 Leticia Baldwin [facility] POCT GLUCOSE (AUTOMATED) 2022-01-19 22:25:00 Leticia Baldwin [facility] POCT GLUCOSE (AUTOMATED) 2021-12-30 21:55:00 Arvind Prado [facility] POCT GLUCOSE (AUTOMATED) 2021-12-30 16:21:00 Arvind Prado [facility] POCT GLUCOSE (AUTOMATED) 2021-12-30 12:30:00 Arvind Prado [facility] HEPATIC FUNCTION PANEL (33204) (ALB,T.PRO,BILI T,BU/BC,ALT,AST,ALK PHOS) 2021-12-30 09:28:00 Maira Gaitan [facility] POCT GLUCOSE (AUTOMATED) 2021-12-30 02:11:00 Arvind Prado [facility] POCT GLUCOSE (AUTOMATED) 2021-12-29 21:41:00 Arvind Prado [facility] POCT GLUCOSE (AUTOMATED) 2021-12-29 16:37:00 Arvind Prado [facility] TRANSTHORACIC ECHO (TTE) COMPLETE W/ CONTRAST 2021-12-29 13:05:00 Jessica Prado [facility] POCT GLUCOSE (AUTOMATED) 2021-12-29 12:41:00 Arvind Prado [facility] TROPONIN I 2021-12-29 09:42:00 [facility] 2021-12-29 04:55:00 Eve [facility] CT HEAD WO CONTRAST 2021-12-28 21:18:22 Poppy Renteria [facility] AMMONIA, PLASMA 2021-12-28 21:00:00 Pia Renteria [facility] COVID-19 (ID NOW RAPID TESTING) 2021-12-28 20:42:00 Pia Renteria [facility] LAB ONLY COVID INTERPRETATION 2021-12-28 20:42:00 Pia Renteria [facility] URINE DRUG (IMMUNOASSAY) - COMPREHENSIVE DRUG SCREEN W/O REFLEX 2021-12-28 20:42:00 Pia Renteria [facility] URINALYSIS 2021-12-28 20:40:00 Pia Renteria [facility] N-TERMINAL PRO-BNP 2021-12-28 20:40:00 Corina Renteria [facility] TROPONIN I 2021-12-28 20:40:00 Pia Renteria [facility] THYROID STIMULATING HORMONE 2021-12-28 20:40:00 Jessica Prado [facility] COMP. METABOLIC PANEL (04857) 2021-12-28 20:40:00 Pia Renteria [facility] LIPID PANEL (57330)(TOTAL CHOLESTEROL, TRIGLYCERIDES, HDL) 2021-12-28 20:40:00 Demetrius Langford [facility] ETHANOL 2021-12-28 20:40:00 Demetrius Langford [facility] CBC WITH DIFF 2021-12-28 20:40:00 Pia Renteria [facility] GLYCOSYLATED HEMOGLOBIN (A1C) 2021-12-28 20:40:00 Jessica Prado [facility] PROTHROMBIN TIME / INR 2021-12-28 20:40:00 Lesly Renteria [facility] XR CHEST 1 VW 2021-12-28 20:16:00 Pia Renteria [facility] HB ECG ROUTINE & RHYTHM STRIP 2021-12-28 20:04:59 Pia Renteria [facility] Encounters Start Date/Time End Date/Time Encounter Type Admission Type Attending [facility] Care Facility Care Department Encounter ID Source 2021-09-17 16:45:00 Inpatient [facility] [id number] [facility] 2020-06-06 16:07:00 Inpatient [facility] [id number] [facility] 2020-06-06 06:20:00 Inpatient [facility] [id number] [facility] 2020-06-05 19:35:00 Inpatient [facility] [id number] [facility] 2020-05-23 19:53:00 Inpatient [facility] [id number] [facility] 2020-05-23 19:53:00 Inpatient [facility] [id number] [facility] 2023-12-12 20:44:00 2023-12-13 00:22:00 Emergency Rafael Byrd [facility] 1.2.840.114 350.1.13.10 4.2.7.2.686 [id number] [facility] 2023-11-05 14:54:00 2023-11-05 16:27:00 Emergency Sulaiman Hawkins [facility] 1.2.840.114 350.1.13.10 4.2.7.2.686 [id number] [facility] 2022-11-11 13:50:00 2022-11-11 16:07:00 Emergency X ERNIE, HEMANT [facility] ERT [id number] [facility] 2022-11-11 13:50:00 2022-11-11 16:07:00 Emergency Hemant Klein [facility] 1.2.840.114 350.1.13.10 4.2.7.2.686 [id number] [facility] 2022-10-14 20:59:00 2022-10-14 20:59:00 Emergency [facility] [id number] [facility] 2022-10-14 20:59:00 2022-10-14 20:59:00 Emergency Emergency ClarePan brothers [facility] [id number] [facility] 2022-08-09 22:59:00 2022-08-11 13:02:00 Outpatient X JESSICA PRADO [facility] MARGO [id number] [facility] 2022-08-09 22:59:00 2022-08-11 13:02:00 Emergency DriscollMukundRayrayJessica Avilez [facility] 1.2.840.114 350.1.13.10 4.2.7.2.686 [id number] [facility] 2022-04-06 09:38:00 2022-04-06 11:42:00 Emergency X DIYA CHOWDHURY [facility] ERT [id number] [facility] 2022-04-06 09:38:00 2022-04-06 11:42:00 Emergency Diya Chowdhury [facility] 1.2.840.114 350.1.13.10 4.2.7.2.686 [id number] [facility] 2022-03-07 12:38:00 2022-03-07 12:38:00 Emergency [facility] [id number] [facility] 2022-03-07 12:38:00 2022-03-07 12:38:00 Emergency Emergency Fidel Cuellar [facility] [id number] [facility] 2022-01-19 17:18:00 2022-01-19 22:00:00 Emergency X DIRK YARBROUGH [facility] ERT [id number] [facility] 2022-01-19 17:18:00 2022-01-19 22:00:00 Emergency NicolasaLeticia Julio C [facility] 1.2.840.114 350.1.13.10 4.2.7.2.686 [id number] [facility] 2021-12-31 00:00:00 2021-12-31 00:00:00 Transition of Care PortilloFaye martinMarlon MASSIEL NAVARRO 1.2.840.114 350.1.13.10 4.2.7.2.686 [id number] [facility] 2021-12-28 14:53:00 2021-12-30 17:42:00 [facility] [id number] [facility] 2021-12-28 14:53:00 2021-12-30 17:42:00 Hospital Encounter Pia Renteria Jelani [facility] 1.2.840.114 350.1.13.10 4.2.7.2.686 [id number] [facility] 2021-09-17 16:47:00 2021-09-17 16:47:00 Emergency [facility] [id number] [facility] 2020-06-06 16:07:00 2020-06-06 16:07:00 Emergency [facility] [id number] [facility] Results Test Description Test Time Test Comments Results Result Co mments Source [facility] [id number] 02:57:27* Test Item Value Reference Range Interpretation Comme nts TROPONIN I (test code = 6012549572) 0.003 ng/mL <=0.034 JUAN ALBERTO (test code [...] of biotin. Lab Interpretation (test code = 46050-2) Normal [facility]. METABOLIC PANEL (49510)2023-12-13 02:46:25* Test Item Value Reference Range Interpretation Comme nts NA (test code = 2410030657) 144 mmol/L 135-145 K (test code = 9569131607) 3.9 mmol/L 3.5-5.0 CL (test code = 1058440489) 110 mmol/L 98-108 H CO2 TOTAL (test code = 7817529988) 20 mmol/L 23-31 L AGAP (test code = 6084715951) 14 2-16 BUN (test code = 5783566526) 13 mg/dL 7-23 GLUCOSE (test code = 1868865750) 163 mg/dL 70-110 H CREATININE (test code = 2160-0) 0.63 mg/dL 0.60-1.25 TOTAL BILI (test code = 6978716740) 0.3 mg/dL 0.1-1.1 CALCIUM (test code = 6682852050) 9.0 mg/dL 8.6-10.6 T PROTEIN (test code = 9426999997) 7.2 g/dL 6.3-8.2 ALBUMIN (test code = 7961063625) 4.1 g/dL 3.5-5.0 ALK PHOS (test code = 8502341823) 129 U/L 34-122 H ALTv (test code = 1742-6) 15 U/L 5-50 AST(SGOT) (test code = 5915551677) 34 U/L 13-40 eGFR (test code = 56711-0) 113.7 mL/min/1.73m2 CKD-EPI eGFR (2020). Assuming creatinine has been stable day-to-day for at least three months, the eGFR indicates Category G1 (>= 90 mL/min/1.73 m2) Lab Interpretation (test code = 96881-0) [facility] [id number] 02:45:25* Test Item Value Reference Range Interpretation Comme nts LIPASE (test code = 8430995312) 47 U/L 0-220 Lab Interpretation (test cod e = 94115-3) [facility] 1 [id number] 02:40:35History: chest pain . Exam: XR CHEST 1 VW Date: 12/12/2023 9:15 PM Ordering provider: RAFAEL BYRD Technical quality: Adequate Comparison: 11/05/2023. Findings: Frontal view of the chest is obtained. The cardiac silhouette is normal in size. No evidence of infiltrate,pleural effusion, CHF, or pneumothorax.[facility] WITH [id number] 02:33:48* Test Item Value Reference Range Interpretation [...] 33.2 g/dL 31.2-35.0 RDW-SD (test code = 90479-1) 54.4 fL 38.5-51.6 H RDW-CV (test code = 788-0) 15.9 % 12.1-15.4 H PLT (test code = 777-3) 318 150-328 MPV (test code = 72274-4) 8.5 fL 9.8-13.0 L NRBC/100 WBC (test code = 7982372530) 0.0 0.0-10.0 NRBC x10^3 (test code = 6016759183) See_Comment [Automated messa ge] The system which generated this result transmitted reference range: 10*3/?L. The reference range was not used to interpret this result as normal/abnormal. GRAN MAT (NEUT) % (test code = 770-8) 50.1 % IMM GRAN % (test code = 5943668566) 0.40 % LYMPH % (test code = 736-9) 37.6 % MONO % (test code = 5905-5) 6.8 % EOS % (test code = 713-8) 4.1 % BASO % (test code = 706-2) 1.0 % GRAN MAT x10^3(ANC) (test code = 5664909751) 3.66 10*3/uL 1.99-6.95 IMM GRAN x10^3 (test code = 2586342716) 0.03 10*3/uL 0.00-0.06 LYMPH x10^3 (test code = 731-0) 2.75 10*3/uL 1.09-3.23 MONO x10^3 (test code = 742-7) 0.50 10*3/uL 0.36-1.02 EOS x10^3 (test code = 711-2) 0.30 10*3/uL 0.06-0.53 BASO x10^3 (test code = 704-7) 0.07 10*3/uL 0.01-0.09 Lab Interpretation (test code = 90037-7) [facility] 1 [id number] 20:15:30HISTORY: Chest pain. TECHNIQUE: Portable AP view of the chest is obtained. Comparison is beingmade with 04/06/2022 study. FINDINGS: No acute pneumonia. No pneumothorax or pleural effusion orpulmonarycongestion detected. Cardiac size is within normal limits.Prominent osteophytes are seen along right left vertebral margins at middleand lower thoracic spines. CONCLUSIONS: No signs of acute cardiopul monary disease.[facility]ETH[facility]OL2023-[facility] 19:45:56 ALCOHOL<10mg/dL11/11/2022 2:45 PM [facility]<10 Nzamfyon25-660 Toxic>100 Depression of RELIGION INSTRUCTOR>400 [facility] (NA, K, CL, CO2, GLUCOSE, BUN, CREATININE, CA)2022-11-11 19:41:47* Test Item Value Reference Range Interpretation Comme nts NA (test code = 1895367669) 138 mmol/L 135-145 K (test code = 7364259298) 4.8 mmol/L 3.5-5.0 CL (test code = 8298811590) 103 mmol/L 98-108 CO2 TOTAL (test code = 6517226801) 26 mmol/L 23-31 AGAP (test code = 9175667536) 9 2-16 BUN (test code = 7204158174) 17 mg/dL 7-23 GLUCOSE (test code = 9571690065) 219 mg/dL 70-110 H CREATININE (test code = 6032569405) 0.72 mg/dL 0.60-1.25 CALCIUM (test code = 9529981877) 10.0 mg/dL 8.6-10.6 eGFR (test code = 0992250858) 114.6 mL/min/1.73m2 JUAN ALBERTO (test code = [...] imaging tests). Lab Interpretation (test code = 88834-4) Abnormal [facility]2023-[facility]-23 19:41:47* Test Item Value Reference Range Interpretation Comme nts MAGNESIUM (test code = 5287366661) 1.8 mg/dL 1.7-2.4 Lab Interpretation (test cod e = 62878-8) Normal [facility] HospitalCB WITH [id number] 19:25:26* Test Item Value Reference Range Interpretation Comme nts WBC (test code = 6690-2) 6.82 See_Comment [Automated [employer] ge] The system which generated this result [...] 33.9 g/dL 31.2-35.0 RDW-SD (test code = 62767-2) 46.0 fL 38.5-51.6 RDW-CV (test code = 788-0) 13.5 % 12.1-15.4 PLT (test code = 777-3) 237 See_Comment [Automated [employer]] The system which generated this result transmitted reference range: 150 - 328 10*3/?L. The reference range was not used to interpret this result as normal/abnormal. MPV (test code = 86030-2) 8.9 fL 9.8-13.0 L NRBC/100 WBC (test code = 8732471449) 0.0 See_Comment [Automated me ssage] The system which generated this result transmitted reference range: 0.0 - 10.0 /100 WBCs. The reference range was not used to interpret this result as normal/abnormal. NRBC x10^3 (test code = 5473841913) See_Comment [Automated messa ge] The system which generated this result transmitted reference range: 10*3/?L. The reference range was not used to interpret this result as normal/abnormal. GRAN MAT (NEUT) % (test code = 770-8) 71.2 % IMM GRAN % (test code = 8355049971) 0.30 % LYMPH % (test code = 736-9) 18.2 % MONO % (test code = 5905-5) 8.4 % EOS % (test code = 713-8) 1.0 % BASO % (test code = 706-2) 0.9 % GRAN MAT x10^3(ANC) (test code = 2200910168) 4.86 10*3/uL 1.99-6.95 IMM GRAN x10^3 (test code = 5608215435) 0.00-0.06 LYMPH x10^3 (test code = 731-0) 1.24 10*3/uL 1.09-3.23 MONO x10^3 (test code = 742-7) 0.57 10*3/uL 0.36-1.02 EOS x10^3 (test code = 711-2) 0.07 10*3/uL 0.06-0.53 BASO x10^3 (test code = 704-7) 0.06 10*3/uL 0.01-0.09 Lab Interpretation (test code = 25778-7) Abnormal [facility], Urinalysis Rflx Cult/[id number] 22:20:00* Test Item Value Reference Range Interpretation Comme nts Color,Urine (test code = UCOL) Yellow Yellow Clarity,Urine (test code = UCLAR) Clear Clear Ph, Urine (test code = UPH) 7.0 5.0-9.0 N Specific [place],Urine (test code = USG) 1.020 1.005-1.030 N [...] code = ULEU) Negative mg/dL Negative Drug Screen,[id number] 22:20:00* Test Item Value Reference Range Interpretation [...] UPROP) Negative Negative Complete Blood Count Auto [id number] 21:21:00* Test Item Value Reference Range Interpretation [...] code = NRBCP) 0 % Comprehensive Metabolic [id number] 21:21:00* Test Item Value Reference Range Interpretation [...] a race coefficient. Additional information canbe found at:[email or web address]_[email or web address] 5.pdf ([email or web address]) [Automated message] The system [...] = ALP) 134 U/L 46-116 H Ethanol [id number] 21:21:00* Test Item Value Reference Range Interpretation Comme nts Ethanol (test code = ETOH) < 3 mg/dL The pharmacologi yudy response to blood alcohol levels mayvary from individual to individual. The fatal concentrationhas been reported to be >400mg/dL. POCT GLUCOSE (AUTOMATED)2022-08-11 13:40:35* Test Item Value Reference Range Interpretation Comme nts POCT GLU (test code = 8676932347) 121 mg/dL 70-110 H Lab Interpretation (test cod e = 83265-4) Abnormal [facility] GLUCOSE (AUTOMATED)2022-08-11 02:18:58* Test Item Value Reference Range Interpretation Comme nts POCT GLU (test code = 8212212794) 183 mg/dL 70-110 H Lab Interpretation (test cod e = 35558-8) Abnormal [facility] GLUCOSE (AUTOMATED)2022-08-10 23:16:11* Test Item Value Reference Range Interpretation Comme nts POCT GLU (test code = 5775142256) 176 mg/dL 70-110 H Lab Interpretation (test cod e = 71260-1) Abnormal [facility] GLUCOSE (AUTOMATED)2022-08-10 18:22:51* Test Item Value Reference Range Interpretation Comme nts POCT GLU (test code = 1415776954) 165 mg/dL 70-110 H Lab Interpretation (test cod e = 91743-6) Abnormal [facility] GLUCOSE (AUTOMATED)2022-08-10 14:18:05* Test Item Value Reference Range Interpretation Comme nts POCT GLU (test code = 9373193412) 138 mg/dL 70-110 H Lab Interpretation (test cod e = 21817-3) Abnormal [facility] GLUCOSE (AUTOMATED)2022-08-10 11:01:21* Test Item Value Reference Range Interpretation Comme nts POCT GLU (test code = 7054998608) 143 mg/dL 70-110 H Lab Interpretation (test cod e = 10757-7) Abnormal [facility]TR[facility] [id number] 06:51:18* Test Item Value Reference Range Interpretation Comme nts TROPONIN I (test code = 5469911139) 0.008 ng/mL <=0.034 JUAN ALBERTO (test code [...] of biotin. Lab Interpretation (test code = 05630-5) Normal [facility] HospitalN-TERMINAL XCS-[id number] 06:47:37* Test Item Value Reference Range Interpretation Comme nts NT-proBNP (test code = 1237876070) 37 pg/mL <=125 JUAN ALBERTO (test code = JUAN ALBERTO) Biotin has been reported to cause a negative bias, interpret results relative to patient's use of biotin. Lab Interpretation (test code = 56641-8) Normal [facility]ETHANOL2023-02-19 06:25:52 ALCOHOL<10mg/dL08/10/2022 12:25 [facility]<10 Xfafgcbc62-639 Toxic>100 Depression of RELIGION INSTRUCTOR>400 Fatalities ReportedEl [facility]o [facility] HospitalCOM. METABOLIC PANEL (36955)2022-08-10 06:19:15* Test Item Value Reference Range Interpretation Comme nts NA (test code = 0538536732) 135 mmol/L 135-145 K (test code = 6000693822) 4.3 mmol/L 3.5-5.0 CL (test code = 3503731758) 98 mmol/L 98-108 CO2 TOTAL (test code = 9441325634) 30 mmol/L 23-31 AGAP (test code = 5529442877) 7 2-16 BUN (test code = 8118190555) 11 mg/dL 7-23 GLUCOSE (test code = 9982011848) 153 mg/dL 70-110 H CREATININE (test code = 1945190435) 0.77 mg/dL 0.60-1.25 TOTAL BILI (test code = 4559601917) 0.9 mg/dL 0.1-1.1 CALCIUM (test code = 9443990352) 10.0 mg/dL 8.6-10.6 T PROTEIN (test code = 1666863517) 7.7 g/dL 6.3-8.2 ALBUMIN (test code = 0988966395) 4.6 g/dL 3.5-5.0 ALK PHOS (test code = 2777494393) 92 U/L 34-122 ALTv (test code = 1742-6) 35 U/L 5-50 AST(SGOT) (test code = 5546728176) 42 U/L 13-40 H eGFR (test code = 6291649992) 106.1 mL/min/1.73m2 JUAN ALBERTO (test code = [...] imaging tests). Lab Interpretation (test code = 29939-3) Abnormal [facility]2023-02-19 06:19:15* Test Item Value Reference Range Interpretation Comme nts MAGNESIUM (test code = 6361051034) 2.2 mg/dL 1.7-2.4 Lab Interpretation (test cod e = 67894-7) Normal [facility]LIPASE2023-02-19 06:18:55* Test Item Value Reference Range Interpretation Comme nts LIPASE (test code = 8696720552) 18 U/L 0-220 Lab Interpretation (test cod e = 08126-9) Normal [facility] HospitalCREATINE [id number] 06:18:55* Test Item Value Reference Range Interpretation Comme nts CK (test code = 5034555171) 174 U/L 33-194 Lab Interpretation (test cod e = 62057-4) Normal [facility]CBC WITH [id number] 06:02:35* Test Item Value Reference Range Interpretation Comme nts WBC (test code = 6690-2) 7.50 See_Comment [Automated [employer]] The system which generated this result transmitted reference range: 4.20 - 10.70 10*3/?L. The reference range was not used to interpret this result as normal/abnormal. RBC (test code = 789-8) 4.80 See_Comment [Autom[employer]] The system which generated this result [...] 32.4 g/dL 31.2-35.0 RDW-SD (test code = 15898-8) 50.2 fL 38.5-51.6 RDW-CV (test code = 788-0) 14.3 % 12.1-15.4 PLT (test code = 777-3) 241 See_Comment [[employer]] The system which generated this result transmitted reference range: 150 - 328 10*3/?L. The reference range was not used to interpret this result as normal/abnormal. MPV (test code = 69755-3) 8.6 fL 9.8-13.0 L NRBC/100 WBC (test code = 9213054476) 0.0 See_Comment [Automated me ssage] The system which generated this result transmitted reference range: 0.0 - 10.0 /100 WBCs. The reference range was not used to interpret this result as normal/abnormal. NRBC x10^3 (test code = 0641248684) See_Comment [Automated messa ge] The system which generated this result transmitted reference range: 10*3/?L. The reference range was not used to interpret this result as normal/abnormal. GRAN MAT (NEUT) % (test code = 770-8) 63.9 % IMM GRAN % (test code = 1062569532) 0.50 % LYMPH % (test code = 736-9) 17.6 % MONO % (test code = 5905-5) 16.5 % EOS % (test code = 713-8) 0.7 % BASO % (test code = 706-2) 0.8 % GRAN MAT x10^3(ANC) (test code = 3186487632) 4.79 10*3/uL 1.99-6.95 IMM GRAN x10^3 (test code = 1473735030) 0.04 10*3/uL 0.00-0.06 LYMPH x10^3 (test code = 731-0) 1.32 10*3/uL 1.09-3.23 MONO x10^3 (test code = 742-7) 1.24 10*3/uL 0.36-1.02 H EOS x10^3 (test code = 711-2) 0.05 10*3/uL 0.06-0.53 L BASO x10^3 (test code = 704-7) 0.06 10*3/uL 0.01-0.09 Lab Interpretation (test code = 83000-1) Abnormal [facility] [id number] 15:15:32* Test Item Value Reference Range Interpretation Comments TROPONIN I (test code = 7282125329) 0.007 ng/mL See_Comment [Automated message] The system [...] of biotin. Lab Interpretation (test code = 90519-6) Normal [facility] HospitalaPTT2022-10-16 15:08:29* Test Item Value Reference [...] 30 seconds. Lab Interpretation (test code = 14579-7) Normal [facility] HospitalPROTHROMBIN TIME / [id number] 15:06:28* Test Item Value Reference Range Interpretation [...] the indications. Lab Interpretation (test code = 95277-5) Normal [facility] HospitalCOMP. METABOLIC PANEL (92893)2022-04-06 15:03:31* Test Item Value Reference Range Interpretation Comme [facility] NA (test code = 5075218009) 136 mmol/L 135-145 K (test code = 4631704626) 5.0 mmol/L 3.5-5 CL (test code = 5360899151) 104 mmol/L 98-108 CO2 TOTAL (test code = 3951229853) 21 mmol/L 23-31 L AGAP (test code = 4058949131) 2-16 BUN (test code = 2388280392) 11 mg/dL 7-23 GLUCOSE (test code = 6545769232) 162 mg/dL 70-110 H CREATININE (test code = 1901759229) 0.52 mg/dL 0.6-1.25 L TOTAL BILI (test code = 8587001610) 1.0 mg/dL 0.1-1.1 CALCIUM (test code = 3066325365) 9.3 mg/dL 8.6-10.6 T PROTEIN (test code = 9757573043) 7.4 g/dL 6.3-8.2 ALBUMIN (test code = 4078709440) 4.4 g/dL 3.5-5 ALK PHOS (test code = 4393801716) 134 U/L 34-122 H ALTv (test code = 1742-6) 17 U/L 5-50 AST(SGOT) (test code = 5875283133) 38 U/L 13-40 eGFR (test code = 5577345830) mL/min/1.73m2 JUAN ALBERTO (test code = JUAN [...] imaging tests). Lab Interpretation (test code = 00352-1) Abnormal [facility], [id number] 15:03:31* Test Item Value Reference Range Interpretation Comme nts LIPASE (test code = 8738520291) 29 U/L 0-220 Lab Interpretation (test cod e = 32350-9) Normal [facility] HospitalCBC WITH [id number] 14:51:49* Test Item Value Reference Range Interpretation Comme nts WBC (test code = 6690-2) See_Comment [Automated [employer]] The system which generated this result transmitted reference range: 4.20 - 10.70 10*3/?L. The reference range was not used to interpret this result as normal/abnormal. RBC (test code = 789-8) See_Comment [[employer]] The system which generated this result [...] 34.0 g/dL 31.2-35 RDW-SD (test code = 49960-1) 45.9 fL 38.5-51.6 RDW-CV (test code = 788-0) 13.3 % 12.1-15.4 PLT (test code = 777-3) See_Comment [[employer]] The system which generated this result transmitted reference range: 150 - 328 10*3/?L. The reference range was not used to interpret this result as normal/abnormal. MPV (test code = 92167-0) 8.4 fL 9.8-13 L NRBC/100 WBC (test code = 0304259893) See_Comment [Automated me ssage] The system which generated this result transmitted reference range: 0.0 - 10.0 /100 WBCs. The reference range was not used to interpret this result as normal/abnormal. NRBC x10^3 (test code = 5917106572) See_Comment [Automated messa ge] The system which generated this result transmitted reference range: 10*3/?L. The reference range was not used to interpret this result as normal/abnormal. GRAN MAT (NEUT) % (test code = 770-8) 63.0 % IMM GRAN % (test code = 5296502815) 0.50 % LYMPH % (test code = 736-9) 25.2 % MONO % (test code = 5905-5) 9.8 % EOS % (test code = 713-8) 0.3 % BASO % (test code = 706-2) 1.2 % GRAN MAT x10^3(ANC) (test code = 8332695651) 3.73 10*3/uL 1.99-6.95 IMM GRAN x10^3 (test code = 2437059202) 0.03 10*3/uL 0-0.06 LYMPH x10^3 (test code = 731-0) 1.49 10*3/uL 1.09-3.23 MONO x10^3 (test code = 742-7) 0.58 10*3/uL 0.36-1.02 EOS x10^3 (test code = 711-2) 0.06-0.53 L BASO x10^3 (test code = 704-7) 0.07 10*3/uL 0.01-0.09 Lab Interpretation (test code = 12339-6) [facility]/[id number] 13:53:00* Test Item Value Reference Range Interpretation Comme nts Color,Urine (test code = UCOL) Yellow Yellow Clarity,Urine (test code = UCLAR) Cloudy Clear A Ph, Urine (test code = UPH) 7.5 5.0-9.0 N Specific [place],Urine (test code = USG) 1.025 1.005-1.030 N [...] = ULEU) Negative mg/dL Negative UF REFLEXDrug Screen,Jsmlw1531-14-02 13:53:00* Test Item Value Reference Range Interpretation [...] UPROP) Negative Negative Complete Blood Count Auto Cggf1905-20-74 12:58:00* Test Item Value Reference Range Interpretation [...] = NRBCP) 0 % Coronavirus PCR, COVID19 Gbzps5148-41-07 12:58:00* Test Item Value Reference Range Interpretation Comme nts Coronavirus PCR, COVID19 Rapid (test code = SARSCOV2) Coronavirus PCR, COVID19 Rapid (test code = SCPFJSA68.1) Reference Range: Negative SARS-CoV-2 PCR Result: (test code = SARS-CoV-2 PCR Result:) Negative by RT-PCR COVID-19 Status: AsymptomaticComprehensive Metabolic [id number] 12:58:00* Test Item Value Reference Range Interpretation [...] = ALP) 144 U/L 46-116 H Ethanol Rngmx3470-53-88 12:58:00* Test Item Value Reference Range Interpretation Comme nts Ethanol (test code = ETOH) < 3 mg/dL The pharmacologi yudy response to blood alcohol levels mayvary from individual to individual. The fatal concentrationhas been reported to be >400mg/dL. [id number] 01:47:56* Test Item Value Reference Range Interpretation Comme nts [place] (test code = 3518600450) 0.7 mmol/L 0.6-1.2 JUAN ALBERTO (test code = JUAN ALBERTO) Toxic Range: ? Greater than 1.2 mmol/L Lab Interpretation (test code = 57649-6) [facility] [id number] 00:26:53* Test Item Value Reference Range Interpretation Comments TROPONIN I (test code = 3505508971) 0.002 ng/mL See_Comment [Automated message] The system [...] of biotin. Lab Interpretation (test code = 02102-6) [facility] 00:18:52 ALCOHOL<10mg/dL01/19/2022 7:18 PM [facility]<10 Gcceiliz68-955 Toxic>100 Depression of RELIGION INSTRUCTOR>400 Fatalities Reported[facility] HospitalCOMP. METABOLIC PANEL (77796)2022-01-20 00:16:16* Test Item Value Reference Range Interpretation Comme nts NA (test code = 1015041777) 137 mmol/L 135-145 K (test code = 5822416751) 4.5 mmol/L 3.5-5 CL (test code = 5134767351) 103 mmol/L 98-108 CO2 TOTAL (test code = 3277459474) 26 mmol/L 23-31 AGAP (test code = 3140317839) 2-16 BUN (test code = 1583673298) 10 mg/dL 7-23 GLUCOSE (test code = 7581754960) 121 mg/dL 70-110 H CREATININE (test code = 0136119576) 0.65 mg/dL 0.6-1.25 TOTAL BILI (test code = 4092332129) 0.8 mg/dL 0.1-1.1 CALCIUM (test code = 1282773799) 11.4 mg/dL 8.6-10.6 H T PROTEIN (test code = 2384114067) 7.2 g/dL 6.3-8.2 ALBUMIN (test code = 7406565938) 4.6 g/dL 3.5-5 ALK PHOS (test code = 9411859316) 112 U/L 34-122 ALTv (test code = 1742-6) 19 U/L 5-50 AST(SGOT) (test code = 4978290505) 26 U/L 13-40 eGFR (test code = 0464977226) mL/min/1.73m2 JUAN ALBERTO (test code = JUAN [...] imaging tests). Lab Interpretation (test code = 58322-0) Abnormal [facility] WITH [id number] 23:43:54* Test Item Value Reference Range Interpretation Comme nts WBC (test code = 6690-2) See_Comment [Automated [employer] ge] The system which generated this result transmitted reference range: 4.20 - 10.70 10*3/?L. The reference range was not used to interpret this result as normal/abnormal. RBC (test code = 789-8) See_Comment [Automated [employer] ge] The system which generated this result [...] 34.4 g/dL 31.2-35 RDW-SD (test code = 46738-4) 44.0 fL 38.5-51.6 RDW-CV (test code = 788-0) 12.6 % 12.1-15.4 PLT (test code = 777-3) See_Comment [Automated [employer] ge] The system which generated this result transmitted reference range: 150 - 328 10*3/?L. The reference range was not used to interpret this result as normal/abnormal. MPV (test code = 14046-0) 9.1 fL 9.8-13 L NRBC/100 WBC (test code = 9746476913) See_Comment [Automated [employer] ssage] The system which generated this result transmitted reference range: 0.0 - 10.0 /100 WBCs. The reference range was not used to interpret this result as normal/abnormal. NRBC x10^3 (test code = 0107072073) See_Comment [Automated messa ge] The system which generated this result transmitted reference range: 10*3/?L. The reference range was not used to interpret this result as normal/abnormal. GRAN MAT (NEUT) % (test code = 770-8) 69.8 % IMM GRAN % (test code = 2810581203) 0.40 % LYMPH % (test code = 736-9) 18.0 % MONO % (test code = 5905-5) 10.9 % EOS % (test code = 713-8) 0.1 % BASO % (test code = 706-2) 0.8 % GRAN MAT x10^3(ANC) (test code = 1429910270) 5.58 10*3/uL 1.99-6.95 IMM GRAN x10^3 (test code = 4943044054) 0.03 10*3/uL 0-0.06 LYMPH x10^3 (test code = 731-0) 1.44 10*3/uL 1.09-3.23 MONO x10^3 (test code = 742-7) 0.87 10*3/uL 0.36-1.02 EOS x10^3 (test code = 711-2) 0.06-0.53 L BASO x10^3 (test code = 704-7) 0.06 10*3/uL 0.01-0.09 Lab Interpretation (test code = 92615-2) Abnormal [facility] GLUCOSE (AUTOMATED)2022-01-19 22:27:41* Test Item Value Reference Range Interpretation Comme nts POCT GLU (test code = 0451668528) 123 mg/dL 70-110 H Lab Interpretation (test cod e = 29351-6) Abnormal [facility] GLUCOSE (AUTOMATED)2021-12-30 22:08:16* Test Item Value Reference Range Interpretation Comme nts POCT GLU (test code = 7854909333) 167 mg/dL 70-110 H Lab Interpretation (test cod e = 38812-9) Abnormal [facility] GLUCOSE (AUTOMATED)2021-12-30 16:50:40* Test Item Value Reference Range Interpretation Comme nts POCT GLU (test code = 4476205260) 154 mg/dL 70-110 H Lab Interpretation (test cod e = 14806-4) Abnormal [facility] GLUCOSE (AUTOMATED)2021-12-30 12:38:43* Test Item Value Reference Range Interpretation Comme nts POCT GLU (test code = 3035364183) 164 mg/dL 70-110 H Lab Interpretation (test cod e = 58302-0) Abnormal [facility] GLUCOSE (AUTOMATED)2021-12-30 02:14:58* Test Item Value Reference Range Interpretation Comme nts POCT GLU (test code = 6666645604) 220 mg/dL 70-110 H Lab Interpretation (test cod e = 75853-3) Abnormal [facility] GLUCOSE (AUTOMATED)2021-12-29 21:50:02* Test Item Value Reference Range Interpretation Comme nts POCT GLU (test code = 7304386338) 191 mg/dL 70-110 H Lab Interpretation (test cod e = 52019-0) Abnormal [facility] GLUCOSE (AUTOMATED)2021-12-29 20:15:01* Test Item Value Reference Range Interpretation Comme nts POCT GLU (test code = 7669093869) 163 mg/dL 70-110 H Lab Interpretation (test cod e = 47503-8) Abnormal [facility] HospitalTransthoracic echo (TTE)2021-12-29 19:12:22* Test Item Value Reference Range Interpretation Comme nts Height (test code = 6533364501) in Weight (test code = 8929548643) lbs Systolic BP (test code = 7610827436) mmHg Diastolic BP (test code = 5498929939) mmHg Heart Rate (test code = 7678625860) bpm BSA (test code = 5991690024) 1.62 m2 Ao root annulus (test code = 7519001680) 2.45 cm Ao root diam (test code = 6798143146) 2.45 cm Aortic root (test code = 5570142943) 2.45 cm ACS (test code = 8838320617) 1.66 cm LA size (test code = 0776038828) 3.2 cm LVOT diameter (test code = 3575558223) 1.95 cm LVIDD (test code = 5388457814) 3.60 cm IVS (test code = 4240224199) 0.94 cm Interventricular Septum Diastolic Thickness by 2D (test code = 2759552) 0.94 cm LVPWD (test code = 1469168135) 0.80 cm PW (test code = 3977667030) 0.80 cm 0.6-1.1 EF(Teich) (test code = 7984101608) 52.80 % LVIDS (test code = 2031939984) 2.60 cm FS (test code = 7319566693) 27 % EF - 2D (test code = 48423730) 52.80 % LAV(MOD-sp4) (test code = 1263020466) 16.80 mL MV Peak E Jovany (test code = 7134103194) 46.1 cm/s E wave decelartion time (test code = 6714026108) 0.31 s MV Peak A Jovany (test code = 4548066552) 58.1 cm/s E/A ratio (test code = 8398441205) ratio MV E/e' septal (test code = 1701526934) 5.7 cm/s Tapse (test code = 0530103316) 1.60 cm LVOT stroke volume (test code = 7187710762) 52.10 cm3 LVOT peak jovany (test code = 2082874882) 110.6 cm/s LVOT mn grad (test code = 5694907012) mmHg AV LVOT peak gradient (test code = 4741627812) mmHg LVOT peak VTI (test code = 8100984208) 17.4 cm LV V1 mean (test code = 6455636086) 66.10 cm/s Aortic valve mean velocity (test code = 1702308958) 73.0 cm/s Ao peak jovany (test code = 3612821219) 124.6 cm/s Ao VTI (test code = 3603978107) 18.6 cm AV area by cont VTI (test code = 5582505323) 2.8 cm2 AV area peak jovany (test code = 3284208743) 2.7 cm2 Ao max PG (test code = 8233632932) 6.20 mm[Hg] AV peak gradient (test code = 2250212123) mmHg AV valve area (test code = 1334560196) 2.80 cm2 AV mean gradient (test code = 9318577891) mmHg Radiology Study observation (narrative) (test code = 00842-5) JUAN ALBERTO (test code = JUAN ALBERTO) [...] mL of Lumason ultrasound enhancing agent used. [facility])2021-12-29 12:50:31* Test Item Value Reference Range Interpretation Comme nts POCT GLU (test code = 0552476088) 141 mg/dL 70-110 H Lab Interpretation (test cod e = 34985-7) Abnormal [facility] HospitalTroponin [id number] 10:38:31* Test Item Value Reference Range Interpretation Comments TROPONIN I (test code = 6750157978) 0.003 ng/mL See_Comment [Automated message] The system [...] of biotin. Lab Interpretation (test code = 83275-9) Normal [facility] HospitalLIPID PANEL (39336)(TOTAL CHOLESTEROL, TRIGLYCERIDES, HDL)2021-12-29 05:56:47* Test Item Value Reference Range Interpretation Comme nts CHOL (test code = 5808175200) 168 mg/dL 120-200 HDL (test code = 8617837236) 102 mg/dL See_Comment [Automated [employer]] The system which generated this result transmitted reference range: >=40. The reference range was not used to interpret this result as normal/abnormal. HDLC RATIO (test code = 3265643056) See_Comment [Automated [employer]] The system which generated this result transmitted reference range: <=5.0. The reference range was not used to interpret this result as normal/abnormal. TRIG (test code = 1490145602) 55 mg/dL 30-170 LDL CHOL (test code = 50822-5) 55 mg/dL See_Comment [Automated [employer]] The system which generated this result transmitted reference range: <=160. The reference range was not used to interpret this result as normal/abnormal. VLDL (test code = 1534639653) 11 mg/dL 5-60 Lab Interpretation (test code = 52479-8) Normal [facility] HospitalThyroid Stimulating Hormone (TSH)2021-12-29 05:40:29* Test Item Value Reference Range Interpretation Comme nts TSH (test code = 2091943691) See_Comment Biotin has been reported to cause a negative bias, interpret results relative to patient's use of biotin. [Automated message] The system which generated this result transmitted reference range: 0.45 - 4.70 mIU/L. The reference range was not used to interpret this result as normal/abnormal. Lab Interpretation (test code = 67556-5) Normal [facility] [id number] 05:34:29* Test Item Value Reference Range Interpretation Comments TROPONIN I (test code = 3998727645) 0.006 ng/mL See_Comment [Automated message] The system [...] of biotin. Lab Interpretation (test code = 14323-6) Normal [facility]ETHANOL2022-07-10 04:43:01 ALCOHOL<10mg/dL12/28/2021 11:43 PM [facility] Greater than or equal to 80 mg/dL. NOTE: Whole blood values are approximately 10% to 15% lower than serum and plasma.[facility] Glycosylated Hemoglobin (A1C)2021-12-29 01:51:44* Test Item Value Reference Range Interpretation Comme nts HGB A1C (test code = 4548-4) 6.5 % 4-5.7 H JUAN ALBERTO (test code = JUAN ALBERTO) Reference RangesNormal: <5.7%Prediabetes: 5.7 - 6.4%Diabetes: > 6.5% Lab Interpretation (test code = 62925-2) Abnormal [facility] [id number] 21:26:50* Test Item Value Reference Range Interpretation Comments TROPONIN I (test code = 1543117954) 0.002 ng/mL See_Comment [Automated message] The system [...] of biotin. Lab Interpretation (test code = 21424-6) Normal [facility] HospitalN-TERMINAL GPC-ONT9517-31-09 21:23:29* Test Item Value Reference Range Interpretation Comme nts NT-proBNP (test code = 7057571439) 41 pg/mL See_Comment [Automated message] The system which generated this result transmitted reference range: <=125. The reference range was not used to interpret this result as normal/abnormal. JUAN ALBERTO (test code = JUAN ALBERTO) Biotin has been reported to cause a negative bias, interpret results relative to patient's use of biotin. Lab Interpretation (test code = 98748-6) Normal [facility] HospitalAMMONIA, [id number] 21:20:38* Test Item Value Reference Range Interpretation Comme nts AMMONIA (test code = 4018074987) 9-33 L Slight hemolysis Lab Interpretation (test code = 85433-4) Abnormal [facility] HospitalCOMP. METABOLIC PANEL (41016)2021-12-28 21:08:48* Test Item Value Reference Range Interpretation Comme nts NA (test code = 7275506605) 137 mmol/L 135-145 K (test code = 9846880757) 4.5 mmol/L 3.5-5 CL (test code = 0448368348) 97 mmol/L 98-108 L CO2 TOTAL (test code = 8483840571) 29 mmol/L 23-31 AGAP (test code = 3035854087) 2-16 BUN (test code = 6116914860) 10 mg/dL 7-23 GLUCOSE (test code = 4509182948) 188 mg/dL 70-110 H CREATININE (test code = 4379046546) 0.58 mg/dL 0.6-1.25 L TOTAL BILI (test code = 4799890258) 0.8 mg/dL 0.1-1.1 CALCIUM (test code = 1910746660) 10.5 mg/dL 8.6-10.6 T PROTEIN (test code = 2960426412) 7.6 g/dL 6.3-8.2 ALBUMIN (test code = 3768997765) 4.5 g/dL 3.5-5 ALK PHOS (test code = 6028027552) 107 U/L 34-122 ALTv (test code = 1742-6) 66 U/L 5-50 H AST(SGOT) (test code = 0847630492) 96 U/L 13-40 H eGFR (test code = 4740045688) mL/min/1.73m2 JUAN ALBERTO (test code = JUAN [...] imaging tests). Lab Interpretation (test code = 49774-1) Abnormal [facility] HospitalPROTHROMBIN TIME / [id number] 21:01:25* Test Item Value Reference Range Interpretation [...] the indications. Lab Interpretation (test code = 76970-8) Normal [facility] HospitalCBC WITH [id number] 20:54:03* Test Item Value Reference Range Interpretation [...] 34.2 g/dL 31.2-35 RDW-SD (test code = 78468-8) 47.8 fL 38.5-51.6 RDW-CV (test code = 788-0) 13.3 % 12.1-15.4 PLT (test code = 777-3) See_Comment [Automated [employer]] The system which generated this result transmitted reference range: 150 - 328 10*3/?L. The reference range was not used to interpret this result as normal/abnormal. MPV (test code = 65900-6) 8.6 fL 9.8-13 L NRBC/100 WBC (test code = 9129289521) See_Comment [Automated me ssage] The system which generated this result transmitted reference range: 0.0 - 10.0 /100 WBCs. The reference range was not used to interpret this result as normal/abnormal. NRBC x10^3 (test code = 8975726797) See_Comment [Automated messa ge] The system which generated this result transmitted reference range: 10*3/?L. The reference range was not used to interpret this result as normal/abnormal. GRAN MAT (NEUT) % (test code = 770-8) 64.1 % IMM GRAN % (test code = 0752011226) 0.40 % LYMPH % (test code = 736-9) 16.6 % MONO % (test code = 5905-5) 17.2 % EOS % (test code = 713-8) 0.2 % BASO % (test code = 706-2) 1.5 % GRAN MAT x10^3(ANC) (test code = 1642815565) 3.47 10*3/uL 1.99-6.95 IMM GRAN x10^3 (test code = 3643146914) 0-0.06 LYMPH x10^3 (test code = 731-0) 0.90 10*3/uL 1.09-3.23 L MONO x10^3 (test code = 742-7) 0.93 10*3/uL 0.36-1.02 EOS x10^3 (test code = 711-2) 0.06-0.53 L BASO x10^3 (test code = 704-7) 0.08 10*3/uL 0.01-0.09 Lab Interpretation (test code = 79696-1) Abnormal [facility] HospitalEthanol Cvyeb1074-77-05 21:08:00* Test Item Value Reference Range Interpretation Comme nts Ethanol (test code = ETOH) < 3 mg/dL The pharmacologi yudy response to blood alcohol levels mayvary from individual to individual. The fatal concentrationhas been reported to be >400mg/dL. Complete Blood Count Auto Tliy0503-26-23 17:33:00* Test Item Value Reference Range Interpretation [...] = NRBCP) 0 % UA, Urinalysis Rflx Cult/Uycrr6919-90-05 17:33:00* Test Item Value Reference Range Interpretation Comme nts Color,Urine (test code = UCOL) Dark Yellow Yellow A Clarity,Urine (test code = UCLAR) Clear Clear Ph, Urine (test code = UPH) 6.5 5.0-9.0 N Specific [place],Urine (test code = USG) 1.015 1.005-1.030 N [...] = ULEU) Trace mg/dL Negative A Urine Gfpxkfnwkzb4417-13-26 17:33:00* Test Item Value Reference Range Interpretation Comme nts RBC,Urine (test code = URBCUF) None Seen /HPF 0-2 WBC,Urine (test code = UWBCUF) 0-5 /HPF 0-5 Epithelial Cell,Urine (test code = UECUF) 0-5 /HPF 0-5 Casts,Urine (test code = UCASTUF) None Seen /LPF None Seen Bacteria,Urine (test code = UBACTUF) None Seen /hpf None Seen Drug Screen,Cfawf9442-20-49 17:33:00* Test Item Value Reference Range Interpretation [...] code = UPROP) Negative Negative Comprehensive Metabolic Kqnhb1265-59-90 17:33:00* Test Item Value Reference Range Interpretation [...] 101 U/L 46-116 N Sars-CoV-2/FLU A/B RSV [id number] 17:31:00* Test Item Value Reference Range Interpretation [...] SARS-CoV-2 PCR Result:) Negative by RT-PCR Drug Screen,Cjhcz4913-79-98 17:20:00* Test Item Value Reference Range Interpretation [...] UPROP) Negative Negative Complete Blood Count Auto Aweu8612-73-41 17:14:00* Test Item Value Reference Range Interpretation [...] code = NRBCP) 0 % Comprehensive Metabolic Rptmj3846-15-34 17:14:00* Test Item Value Reference Range Interpretation [...] = ALP) 207 U/L 46-116 H Ethanol Pdkdr6989-73-96 17:14:00* Test Item Value Reference Range Interpretation Comme nts Ethanol (test code = ETOH) 192 mg/dL Complete Blood Count Auto Tdiu5137-16-57 20:20:00* Test Item Value Reference Range Interpretation [...] code = NRBCP) 0 % Comprehensive Metabolic Onjuc5466-01-58 20:20:00* Test Item Value Reference Range Interpretation [...] = ALP) 189 U/L 46-116 H Ethanol Vpjwh2409-92-32 20:20:00* Test Item Value Reference Range Interpretation Comme nts Ethanol (test code = ETOH) 10 mg/dL Sars-CoV-2/FLU A/B RSV [id number] 20:20:00* Test Item Value Reference Range Interpretation [...] Negative by Nucleic Acid Amplification UA, Urinalysis Boydzovsiyp6484-54-39 20:20:00* Test Item Value Reference Range Interpretation Comme nts Color,Urine (test code = UCOL) Yellow Y Clarity,Urine (test code = UCLAR) Clear Clear PH,Urine (test code = UPH.XX) 7.0 5.5-8.5 Specific [place],Urine (test code = USG) 1.020 1.005-1.030 N [...] code = ULEU) Negative cells/uL Negative Drug Screen,Jftii7654-64-46 20:20:00* Test Item Value Reference Range Interpretation [...] code = UTHCS) [facility] [address] [place] [address] Patient Name: Walt Velazquez Medical Record#: [id number] Address: Homeless City/State/Zip: [place] [address]: Vinnie Navarro MD Insurance:Self Pay /Age/Sex: 1970/50/M Admit/Reg Date: 09/17/[address]: Vinnie Navarro MD [facility] PCP: Md KERWIN Flores Date of Service: 09/17/21 Order (s): CT head/brain wo con CPT Code: 66867 Report Number: [id number] Reason for Exam: Altered mental status Location [...] ES135 cc: PCPNO; GENESIS* Vinnie Navarro MD; Pcp-Go,Md SURESH Notes Date/Time Note Provider Source 2023-12-13 [...] with steady gait, in no apparent distress, [facility] [employer] 2023-12-12 22:20:05 Pt removed all monitoring equipment [facility] [employer] 2023-12-12 20:33:23 Pt brought in by [employer] for medical clearance. [employer] [facility] check pt out on scene but after pt complained of chest pain. [place] [facility] brought pt in for clearance for county. Zeina Albrecht RN [facility] 2023-11-05 16:26:20 Pt discharged with diagnosis of CP. Printed and verbal instructions reviewed with and given to pt. Prescriptions given x 0. Pt verbalized understanding of teaching and recommended follow-up. Denies questions or concerns at this time. Pt ambulatory to holding room to await transportation at discharge. Appears in no apparent distress. No ataxia noted. [facility] Renae Saldivar RN [facility] 2023-11-05 14:56:10 Walt Elizondoegas Sr. is a 52 year old male arrive via [facility] c/o " throbbing ball in chest" since 0600 has been constant, pt immediately asks for food, Emani Gomez RN [facility]
--- NOTE | 2024-02-14 12:53 | EDPHYS ---
Physician Documentation [facility] Name: Walt Velazquez Age: 53 yrs Sex: Male : 1970 Arrival Date: 02/14/2024 Time: 08:35 Bed IW1 Private MD: ED Physician Elisa Ybarra HPI: 02/13 09:45 This 53 yrs old Male presents to ER via Ambulatory with complaints of Foot cp Pain. 09:45 The patient presents with pain, that is acute, swelling, tenderness. The complaints cp affect the dorsum of left foot. 09:45 Context: misstep while walking. cp 09:45 Onset: The symptoms/episode began/occurred this morning. cp 09:45 Modifying factors: the symptoms are aggravated by weight bearing. Associated signs and cp symptoms: Pertinent negatives numbness. Historical: - Allergies: 09:12 Trazodone; hb - PMHx: 09:12 Hypertensive disorder; Seizure; hb ROS: 09:50 MS/extremity: Positive for pain, swelling, tenderness, of the dorsum of left foot, cp Negative for erythema, 09:50 Neck: Negative for pain with movement, pain at rest, cp 09:50 Back: Negative for pain at rest, pain with movement, 09:50 Skin: Negative for cellulitis, rash, 09:50 All other systems are negative, Exam: 09:55 Constitutional: The patient appears in no acute distress, alert, awake, non-toxic, well cp developed, well nourished, uncomfortable, 09:55 Head/Face: Normocephalic, atraumatic. cp 09:55 Chest/axilla: Inspection: normal, 09:55 Cardiovascular: Rate: normal, 09:55 Respiratory: the patient does not display signs of respiratory distress, Respirations: normal, no use of accessory muscles, no retractions, labored breathing, is not present, 09:55 Abdomen/GI: Exam negative for discomfort, distension, Inspection: abdomen appears normal, 09:55 Back: pain, is absent, 09:55 Musculoskeletal/extremity: Extremities: noted in the left foot: dorsal side swelling and tenderness of left foot, no erythema, no open wounds, extremity neurovascular intact, Vital Signs: 09:11 BP 125 / 70; Pulse 81; Resp 16; Temp 97.4(TE); Pulse Ox 99% on R/A; Weight 65.77 kg; hb Height 5 ft. 3 in. ; Pain 7; 09:11 Body Mass Index 25.69 (65.77 kg, 160.02 cm) hb 09:11 Pain Scale: Adult hb MDM: 09:14 Patient medically screened. cp 12:50 Data reviewed: vital signs, nurses notes. cp 12:50 ED course: patient left ED prior to xray images being done. cp Administered Medications: No medications were administered Disposition Summary: 02/14/24 12:53 Eloped Notes: Disposition: post triage evaluation and consult aa5 Reason: unknown aa5 Signatures: Dispatcher [employer] Nellie Quevedo RN RN aa5 Deandre Sharma PA PA cp Landy Laureano, RN RN Corrections: (The following items were deleted from the chart) 09:42 09:42 Foot Left 3 View+RAD.RAD.BRZ ordered. EDMS EDMS
--- NOTE | 2024-02-14 12:53 | ER ---
Nurse's Notes [facility] Name: Walt Velazquez Age: 53 yrs Sex: Male : 1970 Arrival Date: 02/14/2024 Time: 08:35 Bed IW1 Private MD: Diagnosis: Presentation: 02/13 09:11 Chief complaint: Rolled ankle descending patio this morning, c/o left ankle pain 12/29. hb Coronavirus screen: At this time, the client does not indicate any symptoms associated with coronavirus-19. Ebola Screen: No symptoms or risks identified at this time. Initial Sepsis Screen: Does the patient meet any 2 criteria? No. Patient's initial sepsis screen is negative. Does the patient have a suspected source of infection? No. Patient's initial sepsis screen is negative. Risk Assessment: Do you want to hurt yourself or someone else? Patient reports no desire to harm self or others. Onset of symptoms was February 14, 2024. 09:11 Method Of Arrival: Ambulatory hb 09:11 Acuity: LTAASHA 4 hb Triage Assessment: 09:13 General: Appears in no apparent distress. Behavior is calm, cooperative, Smells of hb alcohol. Pain: Pain currently is 7 out of 10 on a pain scale. Neuro: Level of Consciousness is awake, alert, obeys commands, Oriented to person, place, time, situation. Cardiovascular: Patient's skin is warm and dry. Respiratory: Respiratory effort is even, unlabored, Respiratory pattern is regular, symmetrical. Musculoskeletal: Reports left ankle pain. Historical: - Allergies: 09:12 Trazodone; hb - PMHx: 09:12 Hypertensive disorder; Seizure; hb Vital Signs: 09:11 BP 125 / 70; Pulse 81; Resp 16; Temp 97.4(TE); Pulse Ox 99% on R/A; Weight 65.77 kg; hb Height 5 ft. 3 in. ; Pain 710; 09:11 Body Mass Index 25.69 (65.77 kg, 160.02 cm) hb 09:11 Pain Scale: Adult hb ED Course: 08:38 Patient arrived in ED. ra3 09:10 Deandre Sharma PA is PHCP. cp 09:10 Elisa Ybarra MD is Attending Physician. cp 09:12 Triage completed. hb 09:12 Arm band placed on. hb 11:05 Patient's name was called from [place]. No response. aa5 Administered Medications: No medications were administered Outcome: 12:53 Patient left the ED. aa5 Signatures: Nellie Perkins RN RN aa5 Deandre Sharma PA PA cp Baxter, Heather, RN RN hb Shalonda, Crystal ra3 Corrections: (The following items were deleted from the chart) 09:13 09:11 BP 125 / 70; Pulse 81bpm; Resp 16bpm; Pulse Ox 99% RA; Temp 97.4F Temporal; Pain hb 7/10, Adult; hb
[2024-02-14 12:57] VITALS: BP 125/70; TEMP 97.4; O2SAT 99
== END 2024-02-14 12:53 | disposition left against medical advice (07) ==
LOC: ER 08:35
DX: Z53.21 Procedure and treatment not carried out due to patient leaving prior to being seen by health care provider (principal)
CPT/HCPCS: 99281

== ENCOUNTER 2024-02-16 15:01 | Emergency (ER) | payer SELFPAY ==
[2011-10-24 19:41] VITALS: BP 138/81
--- OUTSIDE RECORDS SUMMARY | 2024-02-16 15:08 | XMS REPORT | Continuity of Care Document ---
Author Name Unknown Address [address] [facility] [address] [place] [address] [facility] Address [address] [facility] [place] [address] Care Team Providers Care Globe Changer Name Role Phone Pcp-None Primary Care Physician Unavailab Rafael Thomsa MD Attending Clinician + Sulaiman Hawkins DO Attending Clinician [phone] HEMANT KLEIN Attending Clinician Unavailable Hemant Klein MD Attending Clinician [phone] [place] Attending Clinician Unavailab JESSICA Gallardo Attending Clinician Unavailable Rayray Driscoll MD Attending Clinician + Jessica Prado MD Attending Clinician [phone] Oswald Murphy MD Attending Clinician [phone] DIYA CHOWDHURY Attending Clinician Unavailab Diya Mackey DO Attending Clinician +[phone] Fidel Cuellar Attending Clinician Unavailable DIRK YARBROUGH Attending Clinician Unavailable Leticia Rowland Attending Clinician [phone] Dirk Yarbrough MD Attending Clinician Faye Portillo LVN Attending Clinician [phone] Pia Reddy Attending Clinician [phone] Vinnie Navarro Attending Clinician Unavailable OSWALD MURPHY Admitting Clinician Unavailable Oswald Murphy MD Admitting Clinician [phone] DIYA CHOWDHURY Admitting Clinician UnavailLeticia Gaytan Admitting Clinician Unavailable JESSICA PRADO Admitting Clinician Unavailable Jessica Prado MD Admitting Clinician [phone] Payers Payer Name Policy Type Policy Number Effective Date Expirati on Date Source Problems Condition Name Condition Details Condition Category Status Onset Date Resolution Date Last Treatment Date Treating Clinician Comments Source Alcohol withdrawal syndrome with complicati on Alcohol withdrawal syndrome with complicati on Disease Active 08-10 00:00: 00 [facility] Type 2 diabetes mellitus with other specified complicati on Type 2 diabetes mellitus with other specified complicati on Disease Active 12-29 00:00: 00 [facility] Dyslipidem ia Dyslipidem ia Disease Active 12-29 00:00: 00 [facility] Chest pain, unspecifie d type Chest pain, unspecifie d type Disease Active 12-28 00:00: 00 [facility] Priapism Priapism Disease Active 2013-06- 00:00: 00 [facility] Allergies, Adverse Reactions, Alerts Allergy Name Allergy Type Status Severity Reaction(s) Onset Date Inactive Date Treating Clinician Comments Source No Known Drug Allergie s DA Active U 4-25 00:00: 00 [facility] No Known Drug Allergie s DA Active U 0 9-16 00:00: 00 [facility] No Known Drug Allergie s DA Active U 3-29 00:00: 00 [facility] No Known Drug Allergie s DA Active U 2019-06 2-16 00:00: 00 [facility] No Known Drug Allergie s DA Active U 2019-06 2-15 00:00: 00 [facility] No Known Drug Allergie s DA Active U 2019-06 00:00: 00 [facility] Trazodon e Propensi ty to adverse reaction s Active Other - See comments 10-06 00:00: 00 [facility] TRAZODON E DRUG INGREDI Active Other-Cmnt 10-06 00:00: 00 [facility] Social History Social Habit Start Date Stop Date Quantity Comments Source History of tobacco use Cigarette Smoker [facility] Alcoholic beverage intake 2023-11-07 00:00:00 2023-11-07 00:00:00 Current drinker of alcohol (finding) [facility] History of Social function 2023-11-07 00:00:00 2023-11-07 00:00:00 [facility] Exposure to SARS-CoV-2 (event) 2022-11-01 00:00:00 2022-11-11 13:57:00 Not sure [facility] Tobacco use and exposure 2022-08-10 00:00:00 2022-08-10 00:00:00 User of smokeless tobacco [facility] Alcohol intake 2022-08-10 00:00:00 2022-08-10 00:00:00 Current drinker of alcohol (finding) [facility] Tobacco Comment 2022-08-10 00:00:00 2022-08-10 00:00:00 1/2 a pack a day [facility] Sex [birth year] at 1970 00:00:00 1970 00:00:00 [facility] Smoking Status Start Date Stop Date Source Smokes tobacco daily 2022-08-10 00:00:00 [facility] Medications Ordered Medication Name Filled Medication Name [...] Thu08/12/22 at 0900, Until Discontinu ed, Routine [facility] foLIC acid (FOLATE) tablet 1 mg 08-12 15:00: 00 Yes 1mg 1 mg, Oral, DAILY, First dose on Thu08/12/22 at 0900, Until Discontinu ed, Routine [facility] foLIC acid 1 mg tablet 08-12 00:00: 00 09-12 04:59 :00 No [id number] 1mg Take 1 tablet by mouth in [...] Thu08/11/22 at 1015, Until Discontinu ed, Routine [facility] enoxaparin (LOVENOX) injection 40 mg 08-10 23:00: 00 Yes 40mg 40 mg, Subcutaneo us, DAILY, First dose on Thu08/10/22 at 1700, Until Discontinu ed, Routine [facility] NaCl 0.9% (NS) IV infusion 1,000 mL 08-10 15:00: 00 Yes 1000mL at 125 mL/hr, IV Infusion, CONTINUOUS , Starting on Thu08/10/22 at 0900, Until Discontinu ed, Routine [facility] foLIC acid (FOLATE) 5 mg in NaCl 0.9% (NS) piggyback 08-10 15:00: 00 08-11 16:14 :47 No 5mg IV Piggyback, DAILY, First dose on 08/10/22 at 0900, Until Discontinu ed, 50 mL [facility] thiamine (VITAMIN B1) 100 mg [...] Routine, Seizures, Agitation, Anxiety [facility] Sliding Scale Insulin-Reg ular + Fsbg Testing 08-10 13:30: 00 Yes Subcutaneo us, AC+HS, First dose on Thu08/10/22 at 0730, Until Discontinu ed, Routine [facility] oxazepam (SERAX) capsule 15 mg 08-10 12:08: 05 Yes 15mg 15 mg, Oral, Q4HPRN, Starting on Thu08/10/22 at 0608, Until Discontinu ed, Routine, Only while awake for DBP equal to or greater than 100, HR equal to or greater than 100. [facility] dextrose 10% (D10W) bolus [...] ONCE, 1 dose, [facility]22 [facility] 0045[facility] (ATIVAN) [facility] 1 mg 08-10 05:15: 00 08-10 05:22 :00 No 1mg 1 mg, Slow IV Push, ONCE, 1 dose, On 08/09/22 at 2315, STAT [facility] ketorolac (TORADOL) injection 15 mg 2021-06-16 16:00: 00 04-06 14:50 :00 No 15mg 15 mg, Slow IV Push, ONCE, 1 dose, On 04/06/22 at 1100, [facility] ondansetron (ZOFRAN (PF)) injection 4 mg 2021-0616 15:45: 00 04-06 14:50 :00 No 4mg 4 mg, Slow IV Push, ONCE, 1 dose, On 04/06/22 at 1045, [facility] oxazepam (SERAX) capsule 15 mg 12-31 06:28: 17 01-01 06:29 :00 No 15mg 15 mg, Oral, Q12H TAPER, 2 doses, First dose on Thu12/31/21 at 0130, Last dose on Thu12/31/21 at 1330, Routine [facility] multivitami n tablet 12-31 00:00: 00 Yes [id number] 1{tbl} Take 1 tablet by mouth in the morning. [facility] thiamine 100 mg tablet 12-31 00:00: 00 Yes [id number] 100mg Take 1 tablet by mouth in the morning. [facility] aspirin 81 mg chewable tablet 12-31 00:00: 00 Yes [id number] 81mg Take 1 tablet by mouth in the morning. [facility] foLIC acid 1 mg tablet 12-31 00:00: 00 01-31 04:59 :00 No [id number] 1mg Take 1 tablet by mouth in the morning for 30 days. [facility] metFORMIN 500 mg tablet 12-30 00:00: 00 Yes [id number] 500mg Take 1 tablet by mouth in the morning and 1 tablet in the evening. Take with meals. [facility] aspirin chewable tablet 81 mg 12-29 14:00: 00 Yes 81mg 81 mg, Oral, DAILY, First dose on 12/29/21 at 0900, Until Discontinu ed, Routine [facility] sulfur hexafluorid e microsphr (LUMASON) injection 5 mL 12-29 13:45: 00 12-29 13:45 :00 No [id number] 5mL 5 mL, Intravenou s, ONCE, 1 dose, On 12/29/21 at 0845, Routine
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 medication : STEFANIE GORMAN [place] [...] 12/29/21 at 0800, Until Discontinu ed, Routine [facility] diazePAM (VALIUM) injection 10 mg 12-29 05:30: 00 12-29 04:40 :00 No 10mg 10 mg, Intravenou s, ONCE, 1 dose, On 12/29/21 at 0030, Routine [facility] diazePAM [...] 1 dose, On 12/28/21 at 1815, JACIEL [facility] NaCl 0.9% (NS) bolus infusion 2,000 [...] Systolic blood pressure 2023-12-13 05:16:00 125 mm[Hg] [facility] Diastolic blood pressure 2023-12-13 05:16:00 90 mm[Hg] [facility] Heart rate 2023-12-13 05:16:00 77 /min [facility] Body temperature 2023-12-13 05:16:00 36.06 Theresa [facility] Respiratory rate 2023-12-13 05:16:00 16 /min [facility] Oxygen saturation in Arterial blood by Pulse oximetry 2023-12-13 05:16:00 98 /min [facility] Body height 2023-12-13 01:35:00 157.5 cm [facility] Body weight 2023-12-13 01:35:00 65.772 kg [facility] BMI 2023-12-13 01:35:00 26.52 kg/m2 [facility] Systolic blood pressure 2023-11-05 21:00:00 106 mm[Hg] [facility] Diastolic blood pressure 2023-11-05 21:00:00 70 mm[Hg] [facility] Heart rate 2023-11-05 21:00:00 74 /min [facility] Body temperature 2023-11-05 21:00:00 36.5 Theresa [facility] Respiratory rate 2023-11-05 21:00:00 21 /min [facility] Oxygen saturation in Arterial blood by Pulse oximetry 2023-11-05 21:00:00 98 /min [facility] Body height 2023-11-05 19:59:00 160 cm [facility] Body weight 2023-11-05 19:59:00 63.504 kg [facility] BMI 2023-11-05 19:59:00 24.80 kg/m2 [facility] Systolic blood pressure 2022-11-11 20:31:31 116 mm[Hg] [facility] Diastolic blood pressure 2022-11-11 20:31:31 77 mm[Hg] [facility] Heart rate 2022-11-11 20:31:31 84 /min [facility] Respiratory rate 2022-11-11 20:31:31 12 /min [facility] Oxygen saturation in Arterial blood by Pulse oximetry 2022-11-11 20:31:31 90 /min [facility] Body temperature 2022-11-11 18:49:00 37.11 Theresa [facility] Body height 2022-11-11 18:49:00 160 cm [facility] Body weight 2022-11-11 18:49:00 68.04 kg [facility] BMI 2022-11-11 18:49:00 26.57 kg/m2 [facility] Body temperature 2022-08-11 14:00:00 36.5 Thereas [facility] Systolic blood pressure 2022-08-11 10:00:00 116 mm[Hg] [facility] Diastolic blood pressure 2022-08-11 10:00:00 71 mm[Hg] [facility] Heart rate 2022-08-11 10:00:00 70 /min [facility] Respiratory rate 2022-08-11 10:00:00 16 /min [facility] Body weight 2022-08-11 10:00:00 65.499 kg [facility] BMI 2022-08-11 10:00:00 25.58 kg/m2 [facility] Oxygen saturation in Arterial blood by Pulse oximetry 2022-08-11 10:00:00 100 /min [facility] Body height 2022-08-10 22:12:00 160 cm [facility] Systolic blood pressure 2022-04-06 16:00:00 125 mm[Hg] [facility] Diastolic blood pressure 2022-04-06 16:00:00 75 mm[Hg] [facility] Heart rate 2022-04-06 16:00:00 87 /min [facility] Respiratory rate 2022-04-06 16:00:00 22 /min [facility] Oxygen saturation in Arterial blood by Pulse oximetry 2022-04-06 16:00:00 98 /min [facility] Body temperature 2022-04-06 14:41:00 37 Theresa [facility] Body height 2022-04-06 14:41:00 160 cm [facility] Body weight 2022-04-06 14:41:00 63.504 kg [facility] BMI 2022-04-06 14:41:00 24.80 kg/m2 [facility] Systolic blood pressure 2022-01-20 02:27:00 121 mm[Hg] [facility] Diastolic blood pressure 2022-01-20 02:27:00 75 mm[Hg] [facility] Heart rate 2022-01-20 02:27:00 79 /min [facility] Respiratory rate 2022-01-20 02:27:00 12 /min [facility] Oxygen saturation in Arterial blood by Pulse oximetry 2022-01-20 02:27:00 98 /min [facility] Body temperature 2022-01-19 22:19:00 36.44 Theresa [facility] Body weight 2022-01-19 22:19:00 60.328 kg [facility] BMI 2022-01-19 22:19:00 23.56 kg/m2 [facility] Systolic blood pressure 2021-12-30 20:52:00 134 mm[Hg] [facility] Diastolic blood pressure 2021-12-30 20:52:00 76 mm[Hg] [facility] Heart rate 2021-12-30 20:52:00 67 /min [facility] Body temperature 2021-12-30 20:26:00 36.67 Theresa [facility] Oxygen saturation in Arterial blood by Pulse oximetry 2021-12-30 20:26:00 99 /min [facility] Respiratory rate 2021-12-30 16:21:00 18 /min [facility] Body weight 2021-12-30 08:27:00 60.464 kg [facility] BMI 2021-12-30 08:27:00 23.61 kg/m2 [facility] Body height 2021-12-29 01:29:00 160 cm [facility] Procedures Procedure Date / Time Performed Performing Clinician Source TROPONIN I 2023-12-13 03:32:00 Rafael Byrd [facility] XR CHEST 1 VW 2023-12-13 02:18:14 Rafael Byrd [facility] LIPASE 2023-12-13 02:07:00 Rafael Byrd [facility] TROPONIN I 2023-12-13 02:07:00 Rafael Byrd [facility] COMP. METABOLIC PANEL ([id number]) 2023-12-13 02:07:00 Rafael Byrd [facility] CBC WITH DIFF 2023-12-13 02:07:00 Rafael Byrd [facility] XR CHEST 1 VW 2023-11-05 20:09:00 Sulaiman Hawkins [facility] LIPASE 2023-11-05 20:01:00 Sulaiman [facility] MAGNESIUM 2023-11-05 20:01:00 Sulaiman Hawkins [facility] TROPONIN I 2023-11-05 20:01:00 Sulaiman Hawkins [facility] COMP. METABOLIC PANEL ([id number]) 2023-11-05 20:01:00 Sulaiman Hawkins [facility] CBC WITH DIFF 2023-11-05 20:01:00 Sulaiman Hawkins [facility] N-TERMINAL PRO-BNP 2023-11-05 20:01:00 Sulaiman Hawkins [facility] MAGNESIUM 2022-11-11 19:05:00 Ernie [facility] BASIC METABOLIC PANEL (NA, K, CL, CO2, GLUCOSE, BUN, CREATININE, CA) 2022-11-11 [facility]:05[facility]11 [facility] 2022-11-11 19:05:00 Hemant Klein [facility] POCT GLUCOSE (AUTOMATED) 2022-08-11 13:36:00 Arvind Prado [facility] PHOSPHORUS 2022-08-11 10:35:00 Eve [facility] MAGNESIUM 2022-08-11 10:35:00 Eve [facility] AMMONIA, PLASMA 2022-08-11 10:35:00 Eve Jessica [facility] COMP. METABOLIC PANEL ([id number]) 2022-08-11 10:35:00 Eve [facility] CBC WITH DIFF 2022-08-11 10:35:00 Oswald Murphy [facility] POCT GLUCOSE (AUTOMATED) 2022-08-11 02:15:00 Arvind Prado [facility] POCT GLUCOSE (AUTOMATED) 2022-08-10 23:10:00 Arvind Prado [facility] POCT GLUCOSE (AUTOMATED) 2022-08-10 18:20:00 Arvind Prado [facility] POCT GLUCOSE (AUTOMATED) 2022-08-10 14:11:00 Arvind Prado [facility] POCT GLUCOSE (AUTOMATED) 2022-08-10 10:59:00 Gopal Driscoll [facility] COVID-19 (ID NOW RAPID TESTING) 2022-08-10 07:17:00 Rayray Driscoll [facility] LAB ONLY COVID INTERPRETATION 2022-08-10 07:17:00 Rayray Driscoll [facility] HB ECG ROUTINE & RHYTHM STRIP 2022-08-10 06:03:48 Rayray Driscoll [facility] URINALYSIS 2022-08-10 05:46:00 Rayray [facility]iscoll [facility] URINE DRUG (IMMUNOASSAY) - COMPREHENSIVE DRUG SCREEN W/O REFLEX 2022-08-10 05:45:00 Rayray Driscoll [facility] CREATINE KINASE 2022-08-10 05:16:00 [facility] 2022-08-10 05:16:00 Rayray Driscoll [facility] MAGNESIUM 2022-08-10 05:16:00 Rayray Driscoll [facility] TROPONIN I 2022-08-10 05:16:00 Rayray Driscoll [facility] COMP. METABOLIC PANEL ([id number]) 2022-08-10 05:16:00 Rayray Driscoll [facility] ETHANOL 2022-08-10 05:16:00 Rayray Driscoll [facility] CBC WITH DIFF 2022-08-10 05:16:00 Rayray Driscoll [facility] N-TERMINAL PRO-BNP 2022-08-10 05:16:00 Rayray Driscoll [facility] CRITICAL CARE 2022-08-10 04:52:00 Rayray Driscoll [facility] XR CHEST 1 VW 2022-04-06 14:51:50 Diya Chowdhury [facility] LIPASE 2022-04-06 14:42:00 Diya Chowdhury [facility] TROPONIN I 2022-04-06 14:42:00 Diya Chowdhury [facility] COMP. METABOLIC PANEL ([id number]) 2022-04-06 14:42:00 Diya Chowdhury [facility] CBC WITH DIFF 2022-04-06 14:42:00 Diya Chowdhury [facility] PROTHROMBIN TIME / INR 2022-04-06 14:42:00 Luciana [facility] ACTIVATED PARTIAL THRMPLAS NELDA 2022-04-06 14:42:00 Luciana [facility] LACTIC ACID WHOLE BLOOD 2022-01-20 00:22:00 Leticia Baldwin [facility] URINE DRUG (IMMUNOASSAY) - COMPREHENSIVE DRUG SCREEN 2022-01-19 23:10:00 Leticia Baldwin [facility] URINALYSIS 2022-01-19 23:10:00 Leticia [facility] TROPONIN I 2022-01-19 23:00:00 Leticia Baldwin [facility] COMP. METABOLIC PANEL ([id number]) 2022-01-19 23:00:00 Leticia Baldwin [facility] LITHIUM 2022-01-19 23:00:00 Leticia [facility] ETHANOL 2022-01-19 23:00:00 Leticia Baldwin [facility] CBC WITH DIFF 2022-01-19 23:00:00 Leticia Baldwin [facility] COVID-19 (ID NOW RAPID TESTING) 2022-01-19 23:00:00 Leticia Baldwin [facility] CT HEAD WO CONTRAST 2022-01-19 22:49:00 Leticia Baldwin [facility] XR CHEST 1 VW 2022-01-19 22:41:00 Leticia Baldwin [facility] POCT GLUCOSE (AUTOMATED) 2022-01-19 22:25:00 Leticia Baldwin [facility] POCT GLUCOSE (AUTOMATED) 2021-12-30 21:55:00 Arvind Prado [facility] POCT GLUCOSE (AUTOMATED) 2021-12-30 16:21:00 Arvind Prado [facility] POCT GLUCOSE (AUTOMATED) 2021-12-30 12:30:00 Arvind Prado [facility] HEPATIC FUNCTION PANEL ([id number]) (ALB,T.PRO,BILI T,BU/BC,ALT,AST,ALK PHOS) 2021-12-30 09:28:00 Maira Gaitan [facility] POCT GLUCOSE (AUTOMATED) 2021-12-30 02:11:00 Arvind Prado [facility] POCT GLUCOSE (AUTOMATED) 2021-12-29 21:41:00 Arvind Prado [facility] POCT GLUCOSE (AUTOMATED) 2021-12-29 16:37:00 Arvind Prado [facility] TRANSTHORACIC ECHO (TTE) COMPLETE W/ CONTRAST 2021-12-29 13:05:00 Jessica Prado [facility] POCT GLUCOSE (AUTOMATED) 2021-12-29 12:41:00 Arvind Prado [facility] TROPONIN I 2021-12-29 09:42[facility] 2021-12-29 04:55:00 Eve [facility] CT HEAD WO CONTRAST 2021-12-28 21:18:22 Poppy Renteria [facility] AMMONIA, PLASMA 2021-12-28 21:00:00 Pia Renteria [facility] COVID-19 (ID NOW RAPID TESTING) 2021-12-28 20:42:00 Pia Renteria [facility] LAB ONLY COVID INTERPRETATION 2021-12-28 20:42:00 Pia Renteria [facility] URINE DRUG (IMMUNOASSAY) - COMPREHENSIVE DRUG SCREEN W/O REFLEX 2021-12-28 20:42:00 Pia Renteria [facility] URINALYSIS 2021-12-28 20:40:00 Pia Renteria [facility] N-TERMINAL PRO-BNP 2021-12-28 20:40:00 Corina Renteria [facility] TROPONIN I 2021-12-28 20:40:00 Pia Renteria [facility] THYROID STIMULATING HORMONE 2021-12-28 20:40:00 Jessica Prado [facility] COMP. METABOLIC PANEL ([id number]) 2021-12-28 20:40:00 Pia Renteria [facility] LIPID PANEL ([id number])(TOTAL CHOLESTEROL, TRIGLYCERIDES, HDL) 2021-12-28 20:40:00 Demetrius Langford [facility] ETHANOL 2021-12-28 20:40:00 Demetrius Langford [facility] CBC WITH DIFF 2021-12-28 20:40:00 Pia Renteria [facility] GLYCOSYLATED HEMOGLOBIN (A1C) 2021-12-28 20:40:00 Jessica Prado [facility] PROTHROMBIN TIME / INR 2021-12-28 20:40:00 Lesly Renteria [facility] XR CHEST 1 VW 2021-12-28 20:16:00 Pia Renteria [facility] HB ECG ROUTINE & RHYTHM STRIP 2021-12-28 20:04:59 Pia Renteria [facility] Encounters Start Date/Time End Date/Time Encounter Type Admission Type Attending [facility] Care Department Encounter ID Source 2021-09-17 16:45:00 Inpatient [facility] [id number] [facility] 2020-06-06 16:07:00 Inpatient [facility] [id number] [facility] 2020-06-06 06:20:00 Inpatient [facility] [id number] [facility] 2020-06-05 19:35:00 Inpatient [facility] [id number] [facility] 2020-05-23 19:53:00 Inpatient [facility] [id number] [facility] 2020-05-23 19:53:00 Inpatient [facility] [id number] [facility] 2023-12-12 20:44:00 2023-12-13 00:22:00 Emergency Rafael Byrd [facility] [id number] [facility] 2023-11-05 14:54:00 2023-11-05 16:27:00 Emergency Sulaiman Hawkins [facility] [id number] [facility] 2022-11-11 13:50:00 2022-11-11 16:07:00 Emergency X [facility] [id number] [facility] 2022-11-11 13:50:00 2022-11-11 16:07:00 Emergency Hemant Klein [facility] [id number] [facility] 2022-10-14 20:59:00 2022-10-14 20:59:00 Emergency [facility] [id number] [facility] 2022-10-14 20:59:00 2022-10-14 20:59:00 Emergency Emergency ClarePan brothers [facility] [id number] [facility] 2022-08-09 22:59:00 2022-08-11 13:02:00 Outpatient X [facility]ESSICA [facility] [id number] [facility] 2022-08-09 22:59:00 2022-08-11 13:02:00 Emergency DriscollMukundRayrayJessica Avilez [facility] 1.2.840.114 350.1.13.10 4.2.7.2.686 [id number] [id number] [facility] 2022-04-06 09:38:00 2022-04-06 11:42:00 Emergency X [facility] [id number] [facility] 2022-04-06 09:38:00 2022-04-06 11:42:00 Emergency Diya Chowdhury [facility] 1.2.840.114 350.1.13.10 4.2.7.2.686 [id number] [facility] 2022-03-07 12:38:00 2022-03-07 12:38:00 Emergency [facility] [id number] [facility] 2022-03-07 12:38:00 2022-03-07 12:38:00 Emergency Emergency Fidel Cuellar [facility] [id number] [facility] 2022-01-19 17:18:00 2022-01-19 22:00:00 Emergency X DIRK YARBROUGH [facility] [id number] [facility] 2022-01-19 17:18:00 2022-01-19 22:00:00 Emergency NicolasaLeticia Julio C [facility] 1.2.840.114 350.1.13.10 4.2.7.2.686 [id number] [facility] 2021-12-31 00:00:00 2021-12-31 00:00:00 Transition of Care PortilloFaye martinMarlon MASSIEL NAVARRO 1.2.840.114 350.1.13.10 4.2.7.2.686 [id number] [facility] 2021-12-28 14:53:00 2021-12-30 17:42:00 [facility]patient [facility] [id number] [facility] 2021-12-28 14:53:00 2021-12-30 17:42:00 Hospital Encounter Pia Renteria Jelani [facility] 1.2.840.114 350.1.13.10 4.2.7.2.686 [id number] [facility] 2021-09-17 16:47:00 2021-09-17 16:47:00 Emergency [facility] [id number] [facility] 2020-06-06 16:07:00 2020-06-06 16:07:00 Emergency [facility] [id number] [facility] Results Test Description Test Time Test Comments Results Result Co mments Source [facility] [id number] 02:57:27* Test Item Value Reference Range Interpretation Comme nts TROPONIN I (test code = 0993736588) 0.003 ng/mL <=0.034 JUAN ALBERTO (test code [...] of biotin. Lab Interpretation (test code = 86011-0) Normal [facility]. METABOLIC PANEL (90508)2023-12-13 02:46:25* Test Item Value Reference Range Interpretation Comme nts NA (test code = 2166990253) 144 mmol/L 135-145 K (test code = 2091463694) 3.9 mmol/L 3.5-5.0 CL (test code = 0636559226) 110 mmol/L 98-108 H CO2 TOTAL (test code = 7009462646) 20 mmol/L 23-31 L AGAP (test code = 8034655190) 14 2-16 BUN (test code = 7087072593) 13 mg/dL 7-23 GLUCOSE (test code = 6156611221) 163 mg/dL 70-110 H CREATININE (test code = 2160-0) 0.63 mg/dL 0.60-1.25 TOTAL BILI (test code = 7490106393) 0.3 mg/dL 0.1-1.1 CALCIUM (test code = 6413758090) 9.0 mg/dL 8.6-10.6 T PROTEIN (test code = 0188951641) 7.2 g/dL 6.3-8.2 ALBUMIN (test code = 3795370485) 4.1 g/dL 3.5-5.0 ALK PHOS (test code = 1086536989) 129 U/L 34-122 H ALTv (test code = 1742-6) 15 U/L 5-50 AST(SGOT) (test code = 5091763616) 34 U/L 13-40 eGFR (test code = 95161-1) 113.7 mL/min/1.73m2 CKD-EPI eGFR (2020). Assuming creatinine has been stable day-to-day for at least three months, the eGFR indicates Category G1 (>= 90 mL/min/1.73 m2) Lab Interpretation (test code = 38065-9) Abnormal [facility], [id number] 02:45:25* Test Item Value Reference Range Interpretation Comme nts LIPASE (test code = 0270481570) 47 U/L 0-220 Lab Interpretation (test cod e = 90468-8) Normal [facility]XR CHEST 1 [id number] 02:40:35History: chest pain . Exam: XR CHEST 1 VW Date: 12/12/2023 9:15 PM Ordering provider: RAFAEL BYRD Technical quality: Adequate Comparison: 11/05/2023. Findings: Frontal view of the chest is obtained. The cardiac silhouette is normal in size. No evidence of infiltrate,pleural effusion, CHF, or pneumothorax.[facility]stCBC WITH [id number] 02:33:48* Test Item Value Reference Range Interpretation [...] 33.2 g/dL 31.2-35.0 RDW-SD (test code = 07073-5) 54.4 fL 38.5-51.6 H RDW-CV (test code = 788-0) 15.9 % 12.1-15.4 H PLT (test code = 777-3) 318 150-328 MPV (test code = 47654-0) 8.5 fL 9.8-13.0 L NRBC/100 WBC (test code = 3880476782) 0.0 0.0-10.0 NRBC x10^3 (test code = 2361922431) See_Comment [Automated messa ge] The system which generated this result transmitted reference range: 10*3/?L. The reference range was not used to interpret this result as normal/abnormal. GRAN MAT (NEUT) % (test code = 770-8) 50.1 % IMM GRAN % (test code = 7533327693) 0.40 % LYMPH % (test code = 736-9) 37.6 % MONO % (test code = 5905-5) 6.8 % EOS % (test code = 713-8) 4.1 % BASO % (test code = 706-2) 1.0 % GRAN MAT x10^3(ANC) (test code = 3483765263) 3.66 10*3/uL 1.99-6.95 IMM GRAN x10^3 (test code = 7309644418) 0.03 10*3/uL 0.00-0.06 LYMPH x10^3 (test code = 731-0) 2.75 10*3/uL 1.09-3.23 MONO x10^3 (test code = 742-7) 0.50 10*3/uL 0.36-1.02 EOS x10^3 (test code = 711-2) 0.30 10*3/uL 0.06-0.53 BASO x10^3 (test code = 704-7) 0.07 10*3/uL 0.01-0.09 Lab Interpretation (test code = 81719-0) Abnormal [facility] CHE[facility] 1 [id number] 20:15:30HISTORY: Chest pain. TECHNIQUE: Portable AP view of the chest is obtained. Comparison is beingmade with 04/06/2022 study. FINDINGS: No acute pneumonia. No pneumothorax or pleural effusion orpulmonarycongestion detected. Cardiac size is within normal limits.Prominent osteophytes are seen along right left vertebral margins at middleand lower thoracic spines. CONCLUSIONS: No signs of acute cardiopul monary disease.[facility]stETHANOL2023-05-23 19:45:56 ALCOHOL<10mg/dL11/11/2022 2:45 PM [facility]<10 Hsndepyj16-082 Toxic>100 Depression of TOBACCO STRIPPER HAND>400 [facility] PAN[facility] (NA, K, CL, CO2, GLUCOSE, BUN, CREATININE, CA)2022-11-11 19:41:47* Test Item Value Reference Range Interpretation Comme nts NA (test code = 8174487495) 138 mmol/L 135-145 K (test code = 4887537451) 4.8 mmol/L 3.5-5.0 CL (test code = 2228700019) 103 mmol/L 98-108 CO2 TOTAL (test code = 1802114051) 26 mmol/L 23-31 AGAP (test code = 9762842016) 9 2-16 BUN (test code = 6750683156) 17 mg/dL 7-23 GLUCOSE (test code = 4194503279) 219 mg/dL 70-110 H CREATININE (test code = 1343184679) 0.72 mg/dL 0.60-1.25 CALCIUM (test code = 2327652505) 10.0 mg/dL 8.6-10.6 eGFR (test code = 2738765946) 114.6 mL/min/1.73m2 JUAN ALBERTO (test code = [...] imaging tests). Lab Interpretation (test code = 94287-9) Abnormal [facility]stMAGNESIUM2023-05-23 19:41:47* Test Item Value Reference Range Interpretation Comme nts MAGNESIUM (test code = 5689687389) 1.8 mg/dL 1.7-2.4 Lab Interpretation (test cod e = 64087-8) Normal [facility]stCB WITH [id number] 19:25:26* Test Item Value Reference Range Interpretation Comme nts WBC (test code = 6690-2) 6.82 See_Comment [Automated Payment plugina ge] The system which generated this result [...] 33.9 g/dL 31.2-35.0 RDW-SD (test code = 09020-1) 46.0 fL 38.5-51.6 RDW-CV (test code = 788-0) 13.5 % 12.1-15.4 PLT (test code = 777-3) 237 See_Comment [Automated Payment plugina ge] The system which generated this result transmitted reference range: 150 - 328 10*3/?L. The reference range was not used to interpret this result as normal/abnormal. MPV (test code = 43639-9) 8.9 fL 9.8-13.0 L NRBC/100 WBC (test code = 5768348758) 0.0 See_Comment [Automated me ssage] The system which generated this result transmitted reference range: 0.0 - 10.0 /100 WBCs. The reference range was not used to interpret this result as normal/abnormal. NRBC x10^3 (test code = 3184009097) See_Comment [Automated messa ge] The system which generated this result transmitted reference range: 10*3/?L. The reference range was not used to interpret this result as normal/abnormal. GRAN MAT (NEUT) % (test code = 770-8) 71.2 % IMM GRAN % (test code = 7435046713) 0.30 % LYMPH % (test code = 736-9) 18.2 % MONO % (test code = 5905-5) 8.4 % EOS % (test code = 713-8) 1.0 % BASO % (test code = 706-2) 0.9 % GRAN MAT x10^3(ANC) (test code = 7070260915) 4.86 10*3/uL 1.99-6.95 IMM GRAN x10^3 (test code = 9374427395) 0.00-0.06 LYMPH x10^3 (test code = 731-0) 1.24 10*3/uL 1.09-3.23 MONO x10^3 (test code = 742-7) 0.57 10*3/uL 0.36-1.02 EOS x10^3 (test code = 711-2) 0.07 10*3/uL 0.06-0.53 BASO x10^3 (test code = 704-7) 0.06 10*3/uL 0.01-0.09 Lab Interpretation (test code = 33505-0) Abnormal [facility]stUA, Urinalysis Rflx Cult/Hwpas3300-99-98 22:20:00* Test Item Value Reference Range Interpretation Comme nts Color,Urine (test code = UCOL) Yellow Yellow Clarity,Urine (test code = UCLAR) Clear Clear Ph, Urine (test code = UPH) 7.0 5.0-9.0 N Specific [place],Urine (test code = USG) 1.020 1.005-1.030 N [...] code = ULEU) Negative mg/dL Negative Drug Screen,Rofjf7226-69-51 22:20:00* Test Item Value Reference Range Interpretation [...] UPROP) Negative Negative Complete Blood Count Auto Brhg7734-15-25 21:21:00* Test Item Value Reference Range Interpretation [...] code = NRBCP) 0 % Comprehensive Metabolic [id number] 21:21:00* Test Item Value Reference Range Interpretation [...] a race coefficient. Additional information canbe found at:[id number]_[email or web address] 5.pdf ([email or web address]) [Automated message] The system [...] = ALP) 134 U/L 46-116 H Ethanol Ceakp3502-69-48 21:21:00* Test Item Value Reference Range Interpretation Comme nts Ethanol (test code = ETOH) < 3 mg/dL The pharmacologi yudy response to blood alcohol levels mayvary from individual to individual. The fatal concentrationhas been reported to be >400mg/dL. POCT GLUCOSE (AUTOMATED)2022-08-11 13:40:35* Test Item Value Reference Range Interpretation Comme nts POCT GLU (test code = 0270954900) 121 mg/dL 70-110 H Lab Interpretation (test cod e = 08190-9) Abnormal [facility] GLUCOSE (AUTOMATED)2022-08-11 02:18:58* Test Item Value Reference Range Interpretation Comme nts POCT GLU (test code = 5275098700) 183 mg/dL 70-110 H Lab Interpretation (test cod e = 25682-8) Abnormal [facility] GLUCOSE (AUTOMATED)2022-08-10 23:16:11* Test Item Value Reference Range Interpretation Comme nts POCT GLU (test code = 1850497262) 176 mg/dL 70-110 H Lab Interpretation (test cod e = 76372-3) Abnormal [facility] GLUCOSE (AUTOMATED)2022-08-10 18:22:51* Test Item Value Reference Range Interpretation Comme nts POCT GLU (test code = 0424883913) 165 mg/dL 70-110 H Lab Interpretation (test cod e = 18878-1) Abnormal [facility] GLUCOSE (AUTOMATED)2022-08-10 14:18:05* Test Item Value Reference Range Interpretation Comme nts POCT GLU (test code = 1303893459) 138 mg/dL 70-110 H Lab Interpretation (test cod e = 21834-8) Abnormal [facility] GLUCOSE (AUTOMATED)2022-08-10 11:01:21* Test Item Value Reference Range Interpretation Comme nts POCT GLU (test code = 2193377004) 143 mg/dL 70-110 H Lab Interpretation (test cod e = 10156-9) Abnormal [facility]stTROPONIN [id number] 06:51:18* Test Item Value Reference Range Interpretation Comme nts TROPONIN I (test code = 4844496074) 0.008 ng/mL <=0.034 JUAN ALBERTO (test code [...] of biotin. Lab Interpretation (test code = 27587-1) Normal [facility]stN-TERMINAL LXA-[id number] 06:47:37* Test Item Value Reference Range Interpretation Comme nts NT-proBNP (test code = 7281747663) 37 pg/mL <=125 JUAN ALBERTO (test code = JUAN ALBERTO) Biotin has been reported to cause a negative bias, interpret results relative to patient's use of biotin. Lab Interpretation (test code = 89724-7) Normal [facility]stETHANOL2023-02-19 06:25:52 ALCOHOL<10mg/dL08/10/2022 12:25 AM [facility]<10 Smsljcht13-468 Toxic>100 Depression of TOBACCO STRIPPER HAND>400 Fatalities ReportedB[facility] HillcrestCOM. METABOLIC PANEL (38453)2022-08-10 06:19:15* Test Item Value Reference Range Interpretation Comme nts NA (test code = 3989442591) 135 mmol/L 135-145 K (test code = 6320455395) 4.3 mmol/L 3.5-5.0 CL (test code = 6868019782) 98 mmol/L 98-108 CO2 TOTAL (test code = 3006444470) 30 mmol/L 23-31 AGAP (test code = 1375579940) 7 2-16 BUN (test code = 7473954241) 11 mg/dL 7-23 GLUCOSE (test code = 5748526083) 153 mg/dL 70-110 H CREATININE (test code = 1486820872) 0.77 mg/dL 0.60-1.25 TOTAL BILI (test code = 3256092534) 0.9 mg/dL 0.1-1.1 CALCIUM (test code = 6841208805) 10.0 mg/dL 8.6-10.6 T PROTEIN (test code = 3042123896) 7.7 g/dL 6.3-8.2 ALBUMIN (test code = 0120663544) 4.6 g/dL 3.5-5.0 ALK PHOS (test code = 8614463040) 92 U/L 34-122 ALTv (test code = 1742-6) 35 U/L 5-50 AST(SGOT) (test code = 5452214643) 42 U/L 13-40 H eGFR (test code = 3534554826) 106.1 mL/min/1.73m2 JUAN ALBERTO (test code = [...] imaging tests). Lab Interpretation (test code = 73127-6) Abnormal [facility]stMAGNESIUM2023-02-19 06:19:15* Test Item Value Reference Range Interpretation Comme nts MAGNESIUM (test code = 4140328877) 2.2 mg/dL 1.7-2.4 Lab Interpretation (test cod e = 97264-0) Normal [facility]stLIPASE2023-02-19 06:18:55* Test Item Value Reference Range Interpretation Comme nts LIPASE (test code = 6743125085) 18 U/L 0-220 Lab Interpretation (test cod e = 75374-5) Normal [facility]stCREATINE IHWXSP9613-39-11 06:18:55* Test Item Value Reference Range Interpretation Comme nts CK (test code = 8600381216) 174 U/L 33-194 Lab Interpretation (test cod e = 41725-4) Normal [facility]stCBC WITH JJWV0335-05-09 06:02:35* Test Item Value Reference Range Interpretation Comme nts WBC (test code = 6690-2) 7.50 See_Comment [Automated Payment plugina [employer]] The system which generated this result transmitted reference range: 4.20 - 10.70 10*3/?L. The reference range was not used to interpret this result as normal/abnormal. RBC (test code = 789-8) 4.80 See_Comment [Automated Payment plugina [employer]] The system which generated this result [...] 32.4 g/dL 31.2-35.0 RDW-SD (test code = 62676-5) 50.2 fL 38.5-51.6 RDW-CV (test code = 788-0) 14.3 % 12.1-15.4 PLT (test code = 777-3) 241 See_Comment [Automated Payment plugina ge] The system which generated this result transmitted reference range: 150 - 328 10*3/?L. The reference range was not used to interpret this result as normal/abnormal. MPV (test code = 14873-5) 8.6 fL 9.8-13.0 L NRBC/100 WBC (test code = 7702238904) 0.0 See_Comment [Automated me ssage] The system which generated this result transmitted reference range: 0.0 - 10.0 /100 WBCs. The reference range was not used to interpret this result as normal/abnormal. NRBC x10^3 (test code = 4199986219) See_Comment [Automated messa ge] The system which generated this result transmitted reference range: 10*3/?L. The reference range was not used to interpret this result as normal/abnormal. GRAN MAT (NEUT) % (test code = 770-8) 63.9 % IMM GRAN % (test code = 2120224715) 0.50 % LYMPH % (test code = 736-9) 17.6 % MONO % (test code = 5905-5) 16.5 % EOS % (test code = 713-8) 0.7 % BASO % (test code = 706-2) 0.8 % GRAN MAT x10^3(ANC) (test code = 9920205326) 4.79 10*3/uL 1.99-6.95 IMM GRAN x10^3 (test code = 9118516864) 0.04 10*3/uL 0.00-0.06 LYMPH x10^3 (test code = 731-0) 1.32 10*3/uL 1.09-3.23 MONO x10^3 (test code = 742-7) 1.24 10*3/uL 0.36-1.02 H EOS x10^3 (test code = 711-2) 0.05 10*3/uL 0.06-0.53 L BASO x10^3 (test code = 704-7) 0.06 10*3/uL 0.01-0.09 Lab Interpretation (test code = 69245-3) Abnormal [facility] [id number] 15:15:32* Test Item Value Reference Range Interpretation Comments TROPONIN I (test code = 6942233174) 0.007 ng/mL See_Comment [Automated message] The system [...] of biotin. Lab Interpretation (test code = 21007-8) Normal [facility] HillcrestaPTT2022-10-16 15:08:29* Test Item Value Reference Range Interpretation Comme [facility] APTT Patient (test code = 3173-2) See_Comment [Automated message] The system which generated this result transmitted reference range: 23 - 38 Seconds. The reference range was not used to interpret this result as normal/abnormal. JUAN ALBERTO (test code = JUAN ALBERTO) [facility] population mean normal value for aPTT is 30 seconds. Lab Interpretation (test code = 68960-7) Normal [facility] HillcrestPROTHROMBIN TIME / [id number] 15:06:28* Test Item Value Reference Range Interpretation Comme [facility] PROTIME PATIENT (test [...] the indications. Lab Interpretation (test code = 28134-1) Normal [facility]stCOMP. METABOLIC PANEL (74592)2022-04-06 15:03:31* Test Item Value Reference Range Interpretation Comme [facility] NA (test code = 3685090929) 136 mmol/L 135-145 K (test code = 1777200513) 5.0 mmol/L 3.5-5 CL (test code = 2853079607) 104 mmol/L 98-108 CO2 TOTAL (test code = 2539395769) 21 mmol/L 23-31 L AGAP (test code = 2972768679) 2-16 BUN (test code = 1213250113) 11 mg/dL 7-23 GLUCOSE (test code = 5639769604) 162 mg/dL 70-110 H CREATININE (test code = 1228402571) 0.52 mg/dL 0.6-1.25 L TOTAL BILI (test code = 3035774490) 1.0 mg/dL 0.1-1.1 CALCIUM (test code = 0484465038) 9.3 mg/dL 8.6-10.6 T PROTEIN (test code = 3373352763) 7.4 g/dL 6.3-8.2 ALBUMIN (test code = 6206040191) 4.4 g/dL 3.5-5 ALK PHOS (test code = 5667556504) 134 U/L 34-122 H ALTv (test code = 1742-6) 17 U/L 5-50 AST(SGOT) (test code = 9025501954) 38 U/L 13-40 eGFR (test code = 4513988209) mL/min/1.73m2 JUAN ALBERTO (test code = JUAN [...] imaging tests). Lab Interpretation (test code = 07219-3) Abnormal [facility]stLIPASE, [id number] 15:03:31* Test Item Value Reference Range Interpretation Comme nts LIPASE (test code = 8944555085) 29 U/L 0-220 Lab Interpretation (test cod e = 58746-8) Normal [facility]stCBC WITH [id number] 14:51:49* Test Item Value Reference Range Interpretation Comme nts WBC (test code = 6690-2) See_Comment [Automated Payment [employer]] The system which generated this result transmitted reference range: 4.20 - 10.70 10*3/?L. The reference range was not used to interpret this result as normal/abnormal. RBC (test code = 789-8) See_Comment [Automated Payment [employer]] The system which generated this result [...] 34.0 g/dL 31.2-35 RDW-SD (test code = 00741-2) 45.9 fL 38.5-51.6 RDW-CV (test code = 788-0) 13.3 % 12.1-15.4 PLT (test code = 777-3) See_Comment [Automated Payment [employer]] The system which generated this result transmitted reference range: 150 - 328 10*3/?L. The reference range was not used to interpret this result as normal/abnormal. MPV (test code = 51447-4) 8.4 fL 9.8-13 L NRBC/100 WBC (test code = 9523334788) See_Comment [Automated me ssage] The system which generated this result transmitted reference range: 0.0 - 10.0 /100 WBCs. The reference range was not used to interpret this result as normal/abnormal. NRBC x10^3 (test code = 0564072857) See_Comment [Automated messa ge] The system which generated this result transmitted reference range: 10*3/?L. The reference range was not used to interpret this result as normal/abnormal. GRAN MAT (NEUT) % (test code = 770-8) 63.0 % IMM GRAN % (test code = 7432329696) 0.50 % LYMPH % (test code = 736-9) 25.2 % MONO % (test code = 5905-5) 9.8 % EOS % (test code = 713-8) 0.3 % BASO % (test code = 706-2) 1.2 % GRAN MAT x10^3(ANC) (test code = 0515463714) 3.73 10*3/uL 1.99-6.95 IMM GRAN x10^3 (test code = 9198903072) 0.03 10*3/uL 0-0.06 LYMPH x10^3 (test code = 731-0) 1.49 10*3/uL 1.09-3.23 MONO x10^3 (test code = 742-7) 0.58 10*3/uL 0.36-1.02 EOS x10^3 (test code = 711-2) 0.06-0.53 L BASO x10^3 (test code = 704-7) 0.07 10*3/uL 0.01-0.09 Lab Interpretation (test code = 68805-0) Abnormal [facility]UA, Urinalysis Rflx Cult/Fhidx7346-72-19 13:53:00* Test Item Value Reference Range Interpretation Comme nts Color,Urine (test code = UCOL) Yellow Yellow Clarity,Urine (test code = UCLAR) Cloudy Clear A Ph, Urine (test code = UPH) 7.5 5.0-9.0 N Specific [place],Urine (test code = USG) 1.025 1.005-1.030 N [...] = ULEU) Negative mg/dL Negative UF REFLEXDrug Screen,Olldq7873-08-27 13:53:00* Test Item Value Reference Range Interpretation [...] UPROP) Negative Negative Complete Blood Count Auto Iwtr3213-34-36 12:58:00* Test Item Value Reference Range Interpretation [...] = NRBCP) 0 % Coronavirus PCR, COVID19 Karkw3555-08-68 12:58:00* Test Item Value Reference Range Interpretation Comme nts Coronavirus PCR, COVID19 Rapid (test code = SARSCOV2) Coronavirus PCR, COVID19 Rapid (test code = KNJRZLW03.1) Reference Range: Negative SARS-CoV-2 PCR Result: (test code = SARS-CoV-2 PCR Result:) Negative by RT-PCR COVID-19 Status: AsymptomaticComprehensive Metabolic Tmsnt5472-72-39 12:58:00* Test Item Value Reference Range Interpretation [...] = ALP) 144 U/L 46-116 H Ethanol Vizgr7978-31-91 12:58:00* Test Item Value Reference Range Interpretation Comme nts Ethanol (test code = ETOH) < 3 mg/dL The pharmacologi yudy response to blood alcohol levels mayvary from individual to individual. The fatal concentrationhas been reported to be >400mg/dL. EPUFVRL3044-85-20 01:47:56* Test Item Value Reference Range Interpretation Comme nts [place] (test code = 0006616165) 0.7 mmol/L 0.6-1.2 JUAN ALBERTO (test code = JUAN ALBERTO) Toxic Range: ? Greater than 1.2 mmol/L Lab Interpretation (test code = 48969-8) Normal [facility]stTROPONIN [id number] 00:26:53* Test Item Value Reference Range Interpretation Comments TROPONIN I (test code = 4268201616) 0.002 ng/mL See_Comment [Automated message] The system [...] of biotin. Lab Interpretation (test code = 66159-8) Normal [facility]stETHANOL2022-08-01 00:18:52 ALCOHOL<10mg/dL01/19/2022 7:18 PM [facility]<10 Eznozenh37-382 Toxic>100 Depression of TOBACCO STRIPPER HAND>400 Fatalities ReportedB[facility] – HillcrestCOMP. METABOLIC PANEL (21013)2022-01-20 00:16:16* Test Item Value Reference Range Interpretation Comme nts NA (test code = 6912498657) 137 mmol/L 135-145 K (test code = 5045258769) 4.5 mmol/L 3.5-5 CL (test code = 0761525202) 103 mmol/L 98-108 CO2 TOTAL (test code = 5595082179) 26 mmol/L 23-31 AGAP (test code = 7817198480) 2-16 BUN (test code = 2283280999) 10 mg/dL 7-23 GLUCOSE (test code = 4355383907) 121 mg/dL 70-110 H CREATININE (test code = 0998955249) 0.65 mg/dL 0.6-1.25 TOTAL BILI (test code = 0932536818) 0.8 mg/dL 0.1-1.1 CALCIUM (test code = 0425236044) 11.4 mg/dL 8.6-10.6 H T PROTEIN (test code = 7073144763) 7.2 g/dL 6.3-8.2 ALBUMIN (test code = 4252710883) 4.6 g/dL 3.5-5 ALK PHOS (test code = 4854796343) 112 U/L 34-122 ALTv (test code = 1742-6) 19 U/L 5-50 AST(SGOT) (test code = 4721547436) 26 U/L 13-40 eGFR (test code = 6682115358) mL/min/1.73m2 JUAN ALBERTO (test code = JUAN [...] imaging tests). Lab Interpretation (test code = 60954-2) Abnormal [facility] WITH [id number] 23:43:54* Test Item Value Reference Range Interpretation Comme nts WBC (test code = 6690-2) See_Comment [Automated Payment plugina ge] The system which generated this result transmitted reference range: 4.20 - 10.70 10*3/?L. The reference range was not used to interpret this result as normal/abnormal. RBC (test code = 789-8) See_Comment [Automated Payment plugina ge] The system which generated this result [...] 34.4 g/dL 31.2-35 RDW-SD (test code = 35067-5) 44.0 fL 38.5-51.6 RDW-CV (test code = 788-0) 12.6 % 12.1-15.4 PLT (test code = 777-3) See_Comment [Automated Payment plugina ge] The system which generated this result transmitted reference range: 150 - 328 10*3/?L. The reference range was not used to interpret this result as normal/abnormal. MPV (test code = 26340-5) 9.1 fL 9.8-13 L NRBC/100 WBC (test code = 9717349763) See_Comment [Automated [facility] [facility] ssage] The system which generated this result transmitted reference range: 0.0 - 10.0 /100 WBCs. The reference range was not used to interpret this result as normal/abnormal. NRBC x10^3 (test code = 7163786532) See_Comment [Automated messa ge] The system which generated this result transmitted reference range: 10*3/?L. The reference range was not used to interpret this result as normal/abnormal. GRAN MAT (NEUT) % (test code = 770-8) 69.8 % IMM GRAN % (test code = 5283066205) 0.40 % LYMPH % (test code = 736-9) 18.0 % MONO % (test code = 5905-5) 10.9 % EOS % (test code = 713-8) 0.1 % BASO % (test code = 706-2) 0.8 % GRAN MAT x10^3(ANC) (test code = 4480366351) 5.58 10*3/uL 1.99-6.95 IMM GRAN x10^3 (test code = 1628791512) 0.03 10*3/uL 0-0.06 LYMPH x10^3 (test code = 731-0) 1.44 10*3/uL 1.09-3.23 MONO x10^3 (test code = 742-7) 0.87 10*3/uL 0.36-1.02 EOS x10^3 (test code = 711-2) 0.06-0.53 L BASO x10^3 (test code = 704-7) 0.06 10*3/uL 0.01-0.09 Lab Interpretation (test code = 99448-9) Abnormal [facility] GLUCOSE (AUTOMATED)2022-01-19 22:27:41* Test Item Value Reference Range Interpretation Comme nts POCT GLU (test code = 5488688520) 123 mg/dL 70-110 H Lab Interpretation (test cod e = 45290-6) Abnormal [facility] GLUCOSE (AUTOMATED)2021-12-30 22:08:16* Test Item Value Reference Range Interpretation Comme nts POCT GLU (test code = 4075835386) 167 mg/dL 70-110 H Lab Interpretation (test cod e = 86096-8) Abnormal [facility] GLUCOSE (AUTOMATED)2021-12-30 16:50:40* Test Item Value Reference Range Interpretation Comme nts POCT GLU (test code = 1206015559) 154 mg/dL 70-110 H Lab Interpretation (test cod e = 02960-6) Abnormal [facility] GLUCOSE (AUTOMATED)2021-12-30 12:38:43* Test Item Value Reference Range Interpretation Comme nts POCT GLU (test code = 1757842235) 164 mg/dL 70-110 H Lab Interpretation (test cod e = 82206-2) Abnormal [facility] GLUCOSE (AUTOMATED)2021-12-30 02:14:58* Test Item Value Reference Range Interpretation Comme nts POCT GLU (test code = 8944500749) 220 mg/dL 70-110 H Lab Interpretation (test cod e = 75760-9) Abnormal [facility] GLUCOSE (AUTOMATED)2021-12-29 21:50:02* Test Item Value Reference Range Interpretation Comme nts POCT GLU (test code = 3744836299) 191 mg/dL 70-110 H Lab Interpretation (test cod e = 63916-3) Abnormal [facility] GLUCOSE (AUTOMATED)2021-12-29 20:15:01* Test Item Value Reference Range Interpretation Comme nts POCT GLU (test code = 4170758483) 163 mg/dL 70-110 H Lab Interpretation (test cod e = 33706-6) [facility]2021-12-29 19:12:22* Test Item Value Reference Range Interpretation Comme nts Height (test code = 6824698419) in Weight (test code = 8085907423) lbs Systolic BP (test code = 4014793445) mmHg Diastolic BP (test code = 9154414045) mmHg Heart Rate (test code = 5314090250) bpm BSA (test code = 6417016606) 1.62 m2 Ao root annulus (test code = 8123591661) 2.45 cm Ao root diam (test code = 4360611846) 2.45 cm Aortic root (test code = 7383637377) 2.45 cm ACS (test code = 4161304628) 1.66 cm LA size (test code = 5746786223) 3.2 cm LVOT diameter (test code = 0753018426) 1.95 cm LVIDD (test code = 0676330502) 3.60 cm IVS (test code = 5429565218) 0.94 cm Interventricular Septum Diastolic Thickness by 2D (test code = 5061195) 0.94 cm LVPWD (test code = 0718319168) 0.80 cm PW (test code = 9263232330) 0.80 cm 0.6-1.1 EF(Teich) (test code = 6862528393) 52.80 % LVIDS (test code = 2404612235) 2.60 cm FS (test code = 2559083241) 27 % EF - 2D (test code = 72504158) 52.80 % LAV(MOD-sp4) (test code = 5875908117) 16.80 mL MV Peak E Jovany (test code = 2590380830) 46.1 cm/s E wave decelartion time (test code = 2169191800) 0.31 s MV Peak A Jovany (test code = 5331387754) 58.1 cm/s E/A ratio (test code = 2247051254) ratio MV E/e' septal (test code = 0617655240) 5.7 cm/s Tapse (test code = 1235795155) 1.60 cm LVOT stroke volume (test code = 7261770970) 52.10 cm3 LVOT peak jovany (test code = 5988073906) 110.6 cm/s LVOT mn grad (test code = 4947351254) mmHg AV LVOT peak gradient (test code = 2109694158) mmHg LVOT peak VTI (test code = 2939133278) 17.4 cm LV V1 mean (test code = 3543441695) 66.10 cm/s Aortic valve mean velocity (test code = 9457742863) 73.0 cm/s Ao peak jovany (test code = 3707612375) 124.6 cm/s Ao VTI (test code = 8575551585) 18.6 cm AV area by cont VTI (test code = 2593642986) 2.8 cm2 AV area peak jovany (test code = 6164520945) 2.7 cm2 Ao max PG (test code = 3292310613) 6.20 mm[Hg] AV peak gradient (test code = 4796073440) mmHg AV valve area (test code = 0813354548) 2.80 cm2 AV mean gradient (test code = 2467902954) mmHg Radiology Study observation (narrative) (test code = 78239-0) JUAN ALBERTO (test code = JUAN ALBERTO) [...] [facility]2021-12-29 12:50:31* Test Item Value Reference Range Interpretation Comme nts POCT GLU (test code = 4970740673) 141 mg/dL 70-110 H Lab Interpretation (test cod e = 03600-4) Abnormal [facility]roponin [id number] 10:38:31* Test Item Value Reference Range Interpretation Comments TROPONIN I (test code = 4712571407) 0.003 ng/mL See_Comment [Automated message] The system [...] of biotin. Lab Interpretation (test code = 59192-9) Normal [facility]stLIPID PANEL (87899)(TOTAL CHOLESTEROL, TRIGLYCERIDES, HDL)2021-12-29 05:56:47* Test Item Value Reference Range Interpretation Comme nts CHOL (test code = 2279366716) 168 mg/dL 120-200 HDL (test code = 7331370541) 102 mg/dL See_Comment [Automated [employer]] The system which generated this result transmitted reference range: >=40. The reference range was not used to interpret this result as normal/abnormal. HDLC RATIO (test code = 8183682774) See_Comment [Automated [employer]] The system which generated this result transmitted reference range: <=5.0. The reference range was not used to interpret this result as normal/abnormal. TRIG (test code = 7669566406) 55 mg/dL 30-170 LDL CHOL (test code = 40440-2) 55 mg/dL See_Comment [Automated Payment plugina [employer]] The system which generated this result transmitted reference range: <=160. The reference range was not used to interpret this result as normal/abnormal. VLDL (test code = 2415708857) 11 mg/dL 5-60 Lab Interpretation (test code = 33379-3) [facility]yroid Stimulating Hormone (TSH)2021-12-29 05:40:29* Test Item Value Reference Range Interpretation Comme nts TSH (test code = 5460984759) See_Comment Biotin has been reported to cause a negative bias, interpret results relative to patient's use of biotin. [Automated message] The system which generated this result transmitted reference range: 0.45 - 4.70 mIU/L. The reference range was not used to interpret this result as normal/abnormal. Lab Interpretation (test code = 21255-1) Normal [facility] [id number] 05:34:29* Test Item Value Reference Range Interpretation Comments TROPONIN I (test code = 2570488750) 0.006 ng/mL See_Comment [Automated message] The system [...] of biotin. Lab Interpretation (test code = 50894-0) Normal [facility]stETHANOL2022-07-10 04:43:01 ALCOHOL<10mg/dL12/28/2021 11:43 PM [facility] Greater than or equal to 80 mg/dL. NOTE: Whole blood values are approximately 10% to 15% lower than serum and plasma.[facility] Glycosylated Hemoglobin (A1C)2021-12-29 01:51:44* Test Item Value Reference Range Interpretation Comme nts HGB A1C (test code = 4548-4) 6.5 % 4-5.7 H JUAN ALBERTO (test code = JUAN ALBERTO) Reference RangesNormal: <5.7%Prediabetes: 5.7 - 6.4%Diabetes: > 6.5% Lab Interpretation (test code = 58086-0) Abnormal [facility] [id number] 21:26:50* Test Item Value Reference Range Interpretation Comments TROPONIN I (test code = 8092195173) 0.002 ng/mL See_Comment [Automated message] The system [...] of biotin. Lab Interpretation (test code = 92882-2) Normal [facility]stN-TERMINAL [id number] 21:23:29* Test Item Value Reference Range Interpretation Comme nts NT-proBNP (test code = 9622214142) 41 pg/mL See_Comment [Automated message] The system which generated this result transmitted reference range: <=125. The reference range was not used to interpret this result as normal/abnormal. JUAN ALBERTO (test code = JUAN ALBERTO) Biotin has been reported to cause a negative bias, interpret results relative to patient's use of biotin. Lab Interpretation (test code = 92430-3) Normal [facility]stAMMONIA, [id number] 21:20:38* Test Item Value Reference Range Interpretation Comme nts AMMONIA (test code = 8069826910) 9-33 L Slight hemolysis Lab Interpretation (test code = 50318-2) Abnormal [facility]stCOMP. METABOLIC PANEL (47435)2021-12-28 21:08:48* Test Item Value Reference Range Interpretation Comme nts NA (test code = 3665130640) 137 mmol/L 135-145 K (test code = 0789087436) 4.5 mmol/L 3.5-5 CL (test code = 4648663185) 97 mmol/L 98-108 L CO2 TOTAL (test code = 7459548700) 29 mmol/L 23-31 AGAP (test code = 8692661203) 2-16 BUN (test code = 4335032099) 10 mg/dL 7-23 GLUCOSE (test code = 9412464740) 188 mg/dL 70-110 H CREATININE (test code = 8745535774) 0.58 mg/dL 0.6-1.25 L TOTAL BILI (test code = 8035041351) 0.8 mg/dL 0.1-1.1 CALCIUM (test code = 6749423601) 10.5 mg/dL 8.6-10.6 T PROTEIN (test code = 4383413228) 7.6 g/dL 6.3-8.2 ALBUMIN (test code = 2777676941) 4.5 g/dL 3.5-5 ALK PHOS (test code = 0126767962) 107 U/L 34-122 ALTv (test code = 1742-6) 66 U/L 5-50 H AST(SGOT) (test code = 9626059597) 96 U/L 13-40 H eGFR (test code = 0835780937) mL/min/1.73m2 JUAN ALBERTO (test code = JUAN [...] imaging tests). Lab Interpretation (test code = 02327-6) Abnormal [facility]stPROTHROMBIN TIME / [id number] 21:01:25* Test Item Value Reference Range Interpretation [...] the indications. Lab Interpretation (test code = 62440-4) Normal [facility]stCBC WITH [id number] 20:54:03* Test Item Value Reference Range Interpretation [...] 34.2 g/dL 31.2-35 RDW-SD (test code = 14671-5) 47.8 fL 38.5-51.6 RDW-CV (test code = 788-0) 13.3 % 12.1-15.4 PLT (test code = 777-3) See_Comment [Automated Payment plugina ge] The system which generated this result transmitted reference range: 150 - 328 10*3/?L. The reference range was not used to interpret this result as normal/abnormal. MPV (test code = 95702-2) 8.6 fL 9.8-13 L NRBC/100 WBC (test code = 8390085700) See_Comment [Automated me ssage] The system which generated this result transmitted reference range: 0.0 - 10.0 /100 WBCs. The reference range was not used to interpret this result as normal/abnormal. NRBC x10^3 (test code = 4177805359) See_Comment [Automated messa ge] The system which generated this result transmitted reference range: 10*3/?L. The reference range was not used to interpret this result as normal/abnormal. GRAN MAT (NEUT) % (test code = 770-8) 64.1 % IMM GRAN % (test code = 5350475509) 0.40 % LYMPH % (test code = 736-9) 16.6 % MONO % (test code = 5905-5) 17.2 % EOS % (test code = 713-8) 0.2 % BASO % (test code = 706-2) 1.5 % GRAN MAT x10^3(ANC) (test code = 7460830709) 3.47 10*3/uL 1.99-6.95 IMM GRAN x10^3 (test code = 6390554809) 0-0.06 LYMPH x10^3 (test code = 731-0) 0.90 10*3/uL 1.09-3.23 L MONO x10^3 (test code = 742-7) 0.93 10*3/uL 0.36-1.02 EOS x10^3 (test code = 711-2) 0.06-0.53 L BASO x10^3 (test code = 704-7) 0.08 10*3/uL 0.01-0.09 Lab Interpretation (test code = 29802-3) Abnormal [facility]stEthanol [id number] 21:08:00* Test Item Value Reference Range Interpretation Comme nts Ethanol (test code = ETOH) < 3 mg/dL The pharmacologi yudy response to blood alcohol levels mayvary from individual to individual. The fatal concentrationhas been reported to be >400mg/dL. Complete Blood Count Auto [id number] 17:33:00* Test Item Value Reference Range Interpretation [...] = NRBCP) 0 % UA, Urinalysis Rflx Cult/[id number] 17:33:00* Test Item Value Reference Range Interpretation Comme nts Color,Urine (test code = UCOL) Dark Yellow Yellow A Clarity,Urine (test code = UCLAR) Clear Clear Ph, Urine (test code = UPH) 6.5 5.0-9.0 N Specific [place],Urine (test code = USG) 1.015 1.005-1.030 N [...] = ULEU) Trace mg/dL Negative A Urine [id number] 17:33:00* Test Item Value Reference Range Interpretation Comme nts RBC,Urine (test code = URBCUF) None Seen /HPF 0-2 WBC,Urine (test code = UWBCUF) 0-5 /HPF 0-5 Epithelial Cell,Urine (test code = UECUF) 0-5 /HPF 0-5 Casts,Urine (test code = UCASTUF) None Seen /LPF None Seen Bacteria,Urine (test code = UBACTUF) None Seen /hpf None Seen Drug Screen,[id number] 17:33:00* Test Item Value Reference Range Interpretation [...] code = UPROP) Negative Negative Comprehensive Metabolic Xpcvy0944-05-47 17:33:00* Test Item Value Reference Range Interpretation [...] 101 U/L 46-116 N Sars-CoV-2/FLU A/B RSV [id number] 17:31:00* Test Item Value Reference Range Interpretation [...] SARS-CoV-2 PCR Result:) Negative by RT-PCR Drug Screen,[id number] 17:20:00* Test Item Value Reference Range Interpretation [...] UPROP) Negative Negative Complete Blood Count Auto [id number] 17:14:00* Test Item Value Reference Range Interpretation [...] code = NRBCP) 0 % Comprehensive Metabolic [id number] 17:14:00* Test Item Value Reference Range Interpretation [...] = ALP) 207 U/L 46-116 H Ethanol [id number] 17:14:00* Test Item Value Reference Range Interpretation Comme nts Ethanol (test code = ETOH) 192 mg/dL Complete Blood Count Auto [id number] 20:20:00* Test Item Value Reference Range Interpretation [...] code = NRBCP) 0 % Comprehensive Metabolic [id number] 20:20:00* Test Item Value Reference Range Interpretation [...] = ALP) 189 U/L 46-116 H Ethanol [id number] 20:20:00* Test Item Value Reference Range Interpretation Comme nts Ethanol (test code = ETOH) 10 mg/dL Sars-CoV-2/FLU A/B RSV [id number] 20:20:00* Test Item Value Reference Range Interpretation [...] Negative by Nucleic Acid Amplification UA, Urinalysis Buzigejlbej9537-43-51 20:20:00* Test Item Value Reference Range Interpretation Comme nts Color,Urine (test code = UCOL) Yellow Y Clarity,Urine (test code = UCLAR) Clear Clear PH,Urine (test code = UPH.XX) 7.0 5.5-8.5 Specific [place],Urine (test code = USG) 1.020 1.005-1.030 N [...] code = ULEU) Negative cells/uL Negative Drug Screen,Oisxi3359-32-84 20:20:00* Test Item Value Reference Range Interpretation [...] code = UTHCS) [facility] [address] [place] [address] Patient Name: Walt Velazquez Medical Record#: [id number] Address: Homeless City/State/Zip: [place] [address]: Vinnie Navarro MD Insurance:Self Pay /Age/Sex: 1970/50/M Admit/Reg Date: 09/17/[address]: Vinnie Navarro MD Location: [facility]/ PCP: Md KERWIN Flores Date of Service: 09/17/21 Order (s): CT head/brain wo con CPT Code: 09020 Report Number: [id number] Reason for Exam: Altered mental status Location [...] By: Karen Sanders MD 09/17/211824 Signed By: aKren Sanders MD 09/17/211824 TD/TT: 09/17/211824 Tech: ES135 [...] with steady gait, in no apparent distress, [facility] 2023-12-12 22:20:05 Pt removed all monitoring equipment [facility] 2023-12-12 20:33:23 Pt brought in by [place] [employer] for medical clearance. [facility] check pt out on scene but after pt complained of chest pain. [place] [facility] brought pt in for clearance for [...] apparent distress. No ataxia noted. [facility]. Renae Saldivar RN [facility] 2023-11-05 14:56:10 Walt Elizondoegas Sr. is a 52 year old male arrive via [facility] c/o " throbbing ball in chest" since 0600 has been constant, pt immediately asks for food, Emani Gomez RN [facility]
--- NOTE | 2024-02-16 16:14 | ER ---
Nurse's Notes [facility] Name: Walt Velazquez Age: 53 yrs Sex: Male : 1970 Arrival Date: 02/16/2024 Time: 15:01 Bed IW10 [facility] MD: Diagnosis: Presentation: 02/15 15:20 Chief complaint: EMS states: pt fell and reports foot pain. kc6 15:32 Method Of Arrival: EMS: [facility] kc6 Assessment: 15:20 Reassessment: pt not in lobby when called. iw 15:20 Reassessment: pt left lobby before being seen by triage nurse or MD. kc6 ED Course: 15:14 Patient arrived in ED. mr 15:15 Esme Wilkes MD is Attending Physician. sp3 Administered Medications: No medications were administered Outcome: 16:13 Patient left the ED. iw Signatures: Karrie Smiley, Reg Reg mr Marita Hernandez RN RN iw Esme Wilkes MD MD sp3 Geri Albrecht RN RN kc6 Corrections: (The following items were deleted from the chart) 15:33 15:33 Reassessment: pt left lobby before being seen by triage nurse or MD vargas kc6 15:33 15:32 Chief complaint: EMS states: pt fell and reports foot pain kc6 6
== END 2024-02-16 16:13 | disposition left against medical advice (07) ==
LOC: ER 15:01
DX: Z02.9 Encounter for administrative examinations, unspecified (principal)
CPT/HCPCS: 99282

== ENCOUNTER 2024-02-17 10:33 | Emergency (ER) | payer SELFPAY ==
--- OUTSIDE RECORDS SUMMARY | 2024-02-17 10:40 | XMS REPORT | Continuity of Care Document ---
Author Name Unknown Address [address] [facility] [place] [address] [facility] Address [address] [facility] [address] [facility] [place] [address] Care Team Providers Care Motel Keeper Name Role Phone Pcp-None Primary Care Physician Unavailab Rafael Thomas MD Attending Clinician [phone] Sulaiman Hawkins DO Attending Clinician [phone] HEMANT KLEIN Attending Clinician Unavailable Hemant Klein MD Attending Clinician [phone] [place] Attending Clinician Unavailab JESSICA Gallardo Attending Clinician Unavailable Rayray Driscoll MD Attending Clinician [phone] Jessica Prado MD Attending Clinician [phone] Oswald Murphy MD Attending Clinician [phone] DIYA CHOWDHURY Attending Clinician Unavailab Diya Mackey DO Attending Clinician [phone] Fidel Cuellar Attending Clinician Unavailable DIRK YARBROUGH Attending Clinician Unavailable Leticia Rowland Attending Clinician [phone] Dirk Yarbrough MD Attending Clinician [phone] Faye Portillo LVN Attending Clinician [phone] Pia Reddy Attending Clinician [phone] Vinnie Navarro Attending Clinician Unavailable OSWALD MURPHY Admitting Clinician Unavailable Oswald Murphy MD Admitting Clinician [phone] DIYA CHOWDHURY Admitting Clinician UnavailLeticia Gaytan Admitting Clinician Unavailable JESSICA PRADO Admitting Clinician Unavailable Jessica Prado MD Admitting Clinician [phone] Payers Payer Name Policy Type Policy Number Effective Date Expirati on Date Source Problems Condition Name Condition Details Condition Category Status Onset Date Resolution Date Last Treatment Date Treating Clinician Comments Source Alcohol withdrawal syndrome with complicati on Alcohol withdrawal syndrome with complicati on Disease Active 2-19 00:00: 00 [facility] Type 2 diabetes mellitus with other specified complicati on Type 2 diabetes mellitus with other specified complicati on Disease Active 12-29 00:00: 00 [facility] acute hospital Dyslipidem ia Dyslipidem ia Disease Active 12-29 00:00: 00 General acute hospital Chest pain, unspecifie d type Chest pain, unspecifie d type Disease Active 7- 00:00: 00 General acute hospital Priapism Priapism Disease Active 2013-06- 00:00: 00 [facility] acute hospital Allergies, Adverse Reactions, Alerts Allergy Name Allergy Type Status Severity Reaction(s) Onset Date Inactive Date Treating Clinician Comments Source No Known Drug Allergie s DA Active U 4-25 00:00: 00 [facility] No Known Drug Allergie s DA Active U 0 9-16 00:00: 00 [facility] No Known Drug Allergie s DA Active U 3-29 00:00: 00 [facility] No Known Drug Allergie s DA Active U 2019-06 2-16 00:00: 00 [facility] No Known Drug Allergie s DA Active U 2019-06 2-15 00:00: 00 [facility] No Known Drug Allergie s DA Active U 2019-06 00:00: 00 [facility] Trazodon e Propensi ty to adverse reaction s Active Other - See comments 10-06 00:00: 00 [facility] acute hospital TRAZODON E DRUG INGREDI Active Other-Cmnt 10-06 00:00: 00 [facility] acute hospital Social History Social Habit Start Date Stop Date Quantity Comments Source History of tobacco use Cigarette Smoker [facility] Alcoholic beverage intake 2023-11-07 00:00:00 2023-11-07 00:00:00 Current drinker of alcohol (finding) [facility] History of Social function 2023-11-07 00:00:00 2023-11-07 00:00:00 [facility] Exposure to SARS-CoV-2 (event) 2022-11-01 00:00:00 2022-11-11 13:57:00 Not sure [facility] Tobacco use and exposure 2022-08-10 00:00:00 2022-08-10 00:00:00 User of smokeless tobacco [facility] Alcohol intake 2022-08-10 00:00:00 2022-08-10 00:00:00 Current drinker of alcohol (finding) [facility] Tobacco Comment 2022-08-10 00:00:00 2022-08-10 00:00:00 1/2 a pack a day [facility] Sex assigned at 1970 00:00:00 1970 00:00:00 [facility] Smoking Status Start Date Stop Date Source Smokes tobacco daily 2022-08-10 00:00:00 [facility] Medications Ordered Medication Name Filled Medication [...] 08-12 00:00: 00 09-12 04:59 :00 No [id number] 1mg Take 1 tablet by mouth in [...] at 0900, Until Discontinu ed, Routine [facility] foLIC acid (FOLATE) 5 mg in NaCl 0.9% (NS) piggyback 08-10 15:00: 00 08-11 16:14 :47 No 5mg IV Piggyback, DAILY, First dose on Thu08/10/22 at 0900, Until Discontinu ed, [address] [facility] thiamine (VITAMIN B1) 100 mg [...] Discontinu ed, Routine, Seizures, Agitation, Anxiety [facility] Sliding Scale Insulin-Reg ular + Fsbg Testing 08-10 13:30: 00 Yes Subcutaneo us, AC+HS, First dose on Thu08/10/22 at 0730, Until Discontinu ed, Routine [facility] oxazepam (SERAX) capsule 15 mg 08-10 12:08: 05 Yes 15mg 15 mg, Oral, Q4HPRN, Starting on Thu08/10/22 at 0608, Until Discontinu ed, Routine, Only while awake for DBP equal to or greater than 100, HR equal to or greater than 100. [facility] dextrose 10% (D10W) bolus [...] < 80 mg/dL, repeat.
General acute hospital glucagon (GLUCAGEN DIAGNOSTIC KIT) [...] 1 dose, On 08/10/22 at 0200, STAT General acute hospital thiamine (VITAMIN B1) injection 100 mg 08-10 06:45: 00 08-10 06:52 :00 No 100mg 100 mg, Intravenou s, ONCE, 1 dose, [facility] 08/10/22 at 0045[facility]ATIVAN) [facility] 1 mg 08-10 05:15: 00 08-10 05:22 :00 No 1mg 1 mg, Slow IV Push, ONCE, 1 dose, On 08/09/22 at 2315, STAT General acute hospital ketorolac (TORADOL) injection 15 mg 2021-06 0-16 [...] multivitami n tablet 12-31 00:00: 00 Yes [id number] 1{tbl} Take 1 tablet by mouth in the morning. General acute hospital thiamine 100 mg tablet 12-31 00:00: 00 Yes [id number] 100mg Take 1 tablet by mouth in the morning. [facility] acute hospital aspirin 81 mg chewable tablet 12-31 00:00: 00 Yes [id number] 81mg Take 1 tablet by mouth in the morning. [facility] acute hospital foLIC acid 1 mg tablet 12-31 00:00: 00 01-31 04:59 :00 No [id number] 1mg Take 1 tablet by mouth in the morning for 30 days. General acute hospital metFORMIN 500 mg tablet 12-30 00:00: 00 Yes [id number] 500mg Take 1 tablet by mouth in the morning and 1 tablet in the evening. Take with meals. [facility] acute hospital aspirin chewable tablet 81 mg 12-29 14:00: 00 Yes 81mg 81 mg, Oral, DAILY, First dose on Thu12/29/21 at 0900, Until Discontinu ed, Routine General acute hospital sulfur hexafluorid e microsphr (LUMASON) injection 5 mL 12-29 13:45: 00 12-29 13:45 :00 No [id number] 5mL 5 mL, Intravenou s, ONCE, 1 dose, On 12/29/21 at 0845, Routine
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 : STEFANIE GORMAN General acute hospital enoxaparin (LOVENOX) injection 40 mg 12-29 13:00: 00 Yes 40mg 40 mg, Subcutaneo us, Q24H, First dose on Thu12/29/21 at 0800, Until Discontinu ed, Routine General acute hospital Sliding Scale Insulin - Lispro (HumaLOG) + Fsbg Testing 12-29 13:00: 00 Yes Subcutaneo us, TID MEALS+HS, First dose on Thu12/29/21 at 0800, Until Discontinu ed, Routine General [...] Systolic blood pressure 2023-12-13 05:16:00 125 mm[Hg] [facility] Diastolic blood pressure 2023-12-13 05:16:00 90 mm[Hg] [facility] Heart rate 2023-12-13 05:16:00 77 /min [facility] Body temperature 2023-12-13 05:16:00 36.06 Theresa [facility] Respiratory rate 2023-12-13 05:16:00 16 /min [facility] Oxygen saturation in Arterial blood by Pulse oximetry 2023-12-13 05:16:00 98 /min [facility] Body height 2023-12-13 01:35:00 157.5 cm [facility] Body weight 2023-12-13 01:35:00 65.772 kg [facility] BMI 2023-12-13 01:35:00 26.52 kg/m2 [facility] Systolic blood pressure 2023-11-05 21:00:00 106 mm[Hg] [facility] Diastolic blood pressure 2023-11-05 21:00:00 70 mm[Hg] [facility] Heart rate 2023-11-05 21:00:00 74 /min [facility] Body temperature 2023-11-05 21:00:00 36.5 Theresa [facility] Respiratory rate 2023-11-05 21:00:00 21 /min [facility] Oxygen saturation in Arterial blood by Pulse oximetry 2023-11-05 21:00:00 98 /min [facility] Body height 2023-11-05 19:59:00 160 cm [facility] Body weight 2023-11-05 19:59:00 63.504 kg [facility] BMI 2023-11-05 19:59:00 24.80 kg/m2 [facility] Systolic blood pressure 2022-11-11 20:31:31 116 mm[Hg] [facility] Diastolic blood pressure 2022-11-11 20:31:31 77 mm[Hg] [facility] Heart rate 2022-11-11 20:31:31 84 /min [facility] Respiratory rate 2022-11-11 20:31:31 12 /min [facility] Oxygen saturation in Arterial blood by Pulse oximetry 2022-11-11 20:31:31 90 /min [facility] Body temperature 2022-11-11 18:49:00 37.11 Theresa [facility] Body height 2022-11-11 18:49:00 160 cm [facility] Body weight 2022-11-11 18:49:00 68.04 kg [facility] BMI 2022-11-11 18:49:00 26.57 kg/m2 [facility] Body temperature 2022-08-11 14:00:00 36.5 Theresa [facility] Systolic blood pressure 2022-08-11 10:00:00 116 mm[Hg] [facility] Diastolic blood pressure 2022-08-11 10:00:00 71 mm[Hg] [facility] Heart rate 2022-08-11 10:00:00 70 /min [facility] Respiratory rate 2022-08-11 10:00:00 16 /min [facility] Body weight 2022-08-11 10:00:00 65.499 kg [facility] BMI 2022-08-11 10:00:00 25.58 kg/m2 [facility] Oxygen saturation in Arterial blood by Pulse oximetry 2022-08-11 10:00:00 100 /min [facility] Body height 2022-08-10 22:12:00 160 cm [facility] Systolic blood pressure 2022-04-06 16:00:00 125 mm[Hg] [facility] Diastolic blood pressure 2022-04-06 16:00:00 75 mm[Hg] [facility] Heart rate 2022-04-06 16:00:00 87 /min [facility] Respiratory rate 2022-04-06 16:00:00 22 /min [facility] Oxygen saturation in Arterial blood by Pulse oximetry 2022-04-06 16:00:00 98 /min [facility] Body temperature 2022-04-06 14:41:00 37 Theresa [facility] Body height 2022-04-06 14:41:00 160 cm [facility] Body weight 2022-04-06 14:41:00 63.504 kg [facility] BMI 2022-04-06 14:41:00 24.80 kg/m2 [facility] Systolic blood pressure 2022-01-20 02:27:00 121 mm[Hg] [facility] Diastolic blood pressure 2022-01-20 02:27:00 75 mm[Hg] [facility] Heart rate 2022-01-20 02:27:00 79 /min [facility] Respiratory rate 2022-01-20 02:27:00 12 /min [facility] Oxygen saturation in Arterial blood by Pulse oximetry 2022-01-20 02:27:00 98 /min [facility] Body temperature 2022-01-19 22:19:00 36.44 Theresa [facility] Body weight 2022-01-19 22:19:00 60.328 kg [facility] BMI 2022-01-19 22:19:00 23.56 kg/m2 [facility] Systolic blood pressure 2021-12-30 20:52:00 134 mm[Hg] [facility] Diastolic blood pressure 2021-12-30 20:52:00 76 mm[Hg] [facility] Heart rate 2021-12-30 20:52:00 67 /min [facility] Body temperature 2021-12-30 20:26:00 36.67 Theresa [facility] Oxygen saturation in Arterial blood by Pulse oximetry 2021-12-30 20:26:00 99 /min [place] [facility] Respiratory rate 2021-12-30 16:21:00 18 /min [facility] Body weight 2021-12-30 08:27:00 60.464 kg [facility] BMI 2021-12-30 08:27:00 23.61 kg/m2 [facility] Body height 2021-12-29 01:29:00 160 cm [facility] Procedures Procedure Date / Time Performed Performing Clinician Source TROPONIN I 2023-12-13 03:32:00 Rafael Byrd [facility] XR CHEST 1 VW 2023-12-13 02:18:14 Rafael Byrd [facility] LIPASE 2023-12-13 02:07:00 Rafael Byrd [facility] TROPONIN I 2023-12-13 02:07:00 Rafael Byrd [facility] COMP. METABOLIC PANEL ([id number]) 2023-12-13 02:07:00 Rafael Byrd [facility] CBC WITH DIFF 2023-12-13 02:07:00 Rafael Byrd [facility] XR CHEST 1 VW 2023-11-05 20:09:00 Sulaiman Hawkins [facility] LIPASE 2023-11-05 20:01:00 Sulaiman Hawkins [facility] MAGNESIUM 2023-11-05 20:01:00 Sulaiman Hawkins [facility] TROPONIN I 2023-11-05 20:01:00 Sulaiman Hawkins [facility] COMP. METABOLIC PANEL ([id number]) 2023-11-05 20:01:00 Sulaiman Hawkins [facility] CBC WITH DIFF 2023-11-05 20:01:00 Sulaiman Hawkins [facility] N-TERMINAL PRO-BNP 2023-11-05 20:01:00 Sulaiman Hawkins [facility] MAGNESIUM 2022-11-11 19:05:00 Jessica [facility] BASIC METABOLIC PANEL (NA, K, CL, CO2, GLUCOSE, BUN, CREATININE, CA) 2022-11-11 19:[facility]-11 19:05:00 Jessica [facility] CBC WITH DIFF 2022-11-11 19:05:00 Hemant Klein [facility] POCT GLUCOSE (AUTOMATED) 2022-08-11 13:36:00 Arvind Prado [facility] PHOSPHORUS 2022-08-11 10:35:00 Eve [facility] MAGNESIUM 2022-08-11 10:35:00 Eve [facility] AMMONIA, PLASMA 2022-08-11 10:35:00 Jessica Prado [facility] COMP. METABOLIC PANEL ([id number]) 2022-08-11 10:35:00 Eve [facility] CBC WITH DIFF 2022-08-11 10:35:00 Oswald Murphy [facility] POCT GLUCOSE (AUTOMATED) 2022-08-11 02:15:00 Arvind Prado [facility] POCT GLUCOSE (AUTOMATED) 2022-08-10 23:10:00 Arvind Prado [facility] POCT GLUCOSE (AUTOMATED) 2022-08-10 18:20:00 Arvind Prado [facility] POCT GLUCOSE (AUTOMATED) 2022-08-10 14:11:00 Arvind Prado [facility] POCT GLUCOSE (AUTOMATED) 2022-08-10 10:59:00 Gopal Driscoll [facility] COVID-19 (ID NOW RAPID TESTING) 2022-08-10 07:17:00 Rayray Driscoll [facility] LAB ONLY COVID INTERPRETATION 2022-08-10 07:17:00 Rayray Driscoll [facility] HB ECG ROUTINE & RHYTHM STRIP 2022-08-10 06:03:48 Rayray Driscoll [facility] URINALYSIS 2022-08-10 05:46:00 Rayray Driscoll [facility] URINE DRUG (IMMUNOASSAY) - COMPREHENSIVE DRUG SCREEN W/O REFLEX 2022-08-10 05:45:00 Rayray Driscoll [facility] CREATINE KINASE 2022-08-10 05:16:00 [facility] 2022-08-10 05:16:00 Rayray Driscoll [facility] MAGNESIUM 2022-08-10 05:16:00 Rayray Driscoll [facility] TROPONIN I 2022-08-10 05:16:00 Rayray Driscoll [facility] COMP. METABOLIC PANEL ([id number]) 2022-08-10 05:16:00 Rayray Driscoll [facility] ETHANOL 2022-08-10 05:16:00 Rayray Driscoll [facility] CBC WITH DIFF 2022-08-10 05:16:00 Rayray Driscoll [facility] N-TERMINAL PRO-BNP 2022-08-10 05:16:00 Rayray Driscoll [facility] CRITICAL CARE 2022-08-10 04:52:00 Rayray Driscoll [facility] XR CHEST 1 VW 2022-04-06 14:51:50 Diya Chowdhury [facility] LIPASE 2022-04-06 14:42:00 Diya Chowdhury Un [facility] TROPONIN I 2022-04-06 14:42:00 Diya Chowdhury [facility] COMP. METABOLIC PANEL ([id number]) 2022-04-06 14:42:00 Diya Chowdhury [facility] CBC WITH DIFF 2022-04-06 14:42:00 Diya Chowdhury [facility] PROTHROMBIN TIME / INR 2022-04-06 14:42:00 Diya Chowdhury [facility] ACTIVATED PARTIAL THRMPLAS NELDA 2022-04-06 14:42:00 Diya Chowdhury [facility] LACTIC ACID WHOLE BLOOD 2022-01-20 00:22:00 Leticia Baldwin [facility] URINE DRUG (IMMUNOASSAY) - COMPREHENSIVE DRUG SCREEN 2022-01-19 23:10:00 Leticia Baldwin [facility] URINALYSIS 2022-01-19 23:10:00 Leticia Baldwin [facility] TROPONIN I 2022-01-19 23:00:00 Leticia Baldwin [facility] COMP. METABOLIC PANEL ([id number]) 2022-01-19 23:00:00 Leticia Baldwin [facility] LITHIUM 2022-01-19 23:00:00 Leticia Baldwin [facility] ETHANOL 2022-01-19 23:00:00 Leticia Baldwin [facility] CBC WITH DIFF 2022-01-19 23:00:00 Leticia Baldwin [facility] COVID-19 (ID NOW RAPID TESTING) 2022-01-19 23:00:00 Leticia Baldwin [facility] CT HEAD WO CONTRAST 2022-01-19 22:49:00 Leticia Baldwin [facility] XR CHEST 1 VW 2022-01-19 22:41:00 Leticia Baldwin [facility] POCT GLUCOSE (AUTOMATED) 2022-01-19 22:25:00 Leticia Baldwin [facility] POCT GLUCOSE (AUTOMATED) 2021-12-30 21:55:00 Arvind Prado [facility] POCT GLUCOSE (AUTOMATED) 2021-12-30 16:21:00 Arvind Prado [facility] POCT GLUCOSE (AUTOMATED) 2021-12-30 12:30:00 Arvind Prado [facility] HEPATIC FUNCTION PANEL ([id number]) (ALB,T.PRO,BILI T,BU/BC,ALT,AST,ALK PHOS) 2021-12-30 09:28:00 Maira Gaitan [facility] POCT GLUCOSE (AUTOMATED) 2021-12-30 02:11:00 Arvind Prado [facility] POCT GLUCOSE (AUTOMATED) 2021-12-29 21:41:00 Arvind Prado [facility] POCT GLUCOSE (AUTOMATED) 2021-12-29 16:37:00 Arvind Prado [facility] TRANSTHORACIC ECHO (TTE) COMPLETE W/ CONTRAST 2021-12-29 13:05:00 Jessica Prado [facility] POCT GLUCOSE (AUTOMATED) 2021-12-29 12:41:00 Arvind Prado [facility] TROPONIN I 2021-12-29 09:42:00 Eve [facility] TROPONIN I 2021-12-29 04:55:[address] [facility] [address] HEAD WO CONTRAST 2021-12-28 21:18:22 Poppy Renteria [facility] AMMONIA, PLASMA 2021-12-28 21:00:00 Pia Renteria [facility] COVID-19 (ID NOW RAPID TESTING) 2021-12-28 20:42:00 Pia Renteria [facility] LAB ONLY COVID INTERPRETATION 2021-12-28 20:42:00 Pia Renteria [facility] URINE DRUG (IMMUNOASSAY) - COMPREHENSIVE DRUG SCREEN W/O REFLEX 2021-12-28 20:42:00 Pia Renteria [facility] URINALYSIS 2021-12-28 20:40:00 Pia Renteria [facility] N-TERMINAL PRO-BNP 2021-12-28 20:40:00 Corina Renteria [facility] TROPONIN I 2021-12-28 20:40:00 Pia Renteria [facility] THYROID STIMULATING HORMONE 2021-12-28 20:40:00 Jessica Prado [facility] COMP. METABOLIC PANEL ([id number]) 2021-12-28 20:40:00 Pia Renteria [facility] LIPID PANEL ([id number])(TOTAL CHOLESTEROL, TRIGLYCERIDES, HDL) 2021-12-28 20:40:00 Demetrius Langford [facility] ETHANOL 2021-12-28 20:40:00 Demetrius Langford [facility] CBC WITH DIFF 2021-12-28 20:40:00 Pia Renteria [facility] GLYCOSYLATED HEMOGLOBIN (A1C) 2021-12-28 20:40:00 Jessica Prado [facility] PROTHROMBIN TIME / INR 2021-12-28 20:40:00 Lesly Renteria [facility] XR CHEST 1 VW 2021-12-28 20:16:00 Pia Renteria [facility] HB ECG ROUTINE & RHYTHM STRIP 2021-12-28 20:04:59 Pia Renteria [facility] Encounters Start Date/Time End Date/Time Encounter Type Admission Type Attending [facility] Facility Care Department Encounter ID Source 2021-09-17 16:45:00 Inpatient [facility] [id number] [facility] 2020-06-06 16:07:00 Inpatient [facility] [id number] [facility] 2020-06-06 06:20:00 Inpatient [facility] [id number] [facility] 2020-06-05 19:35:00 Inpatient [facility] [id number] [facility] 2020-05-23 19:53:00 Inpatient [facility] [id number] [facility] 2020-05-23 19:53:00 Inpatient [facility] [id number] [facility] 2023-12-12 20:44:00 2023-12-13 00:22:00 Emergency Rafael Byrd [facility] [id number] 350.1.13.10 4.2.7.2.686 [id number] General acute hospital 2023-11-05 14:54:00 2023-11-05 16:27:00 Emergency Sulaiman Hawkins [facility] [id number] 350.1.13.10 4.2.7.2.686 [id number] General acute hospital 2022-11-11 13:50:00 2022-11-11 16:07:00 Emergency X HEMANT KLEIN [facility] ERT [id number] General acute hospital 2022-11-11 13:50:00 2022-11-11 16:07:00 Emergency Hemant Klein [facility] [id number] 350.1.13.10 4.2.7.2.686 [id number] General acute hospital 2022-10-14 20:59:00 2022-10-14 20:59:00 Emergency [facility] [id number] [facility] 2022-10-14 20:59:00 2022-10-14 20:59:00 Emergency Emergency Pan Pinto [facility] [id number] [facility] 2022-08-09 22:59:00 2022-08-11 13:02:00 Outpatient X JESSICA PRADO [facility] [id number] General acute hospital 2022-08-09 22:59:00 2022-08-11 13:02:00 Emergency DriscollMukundRayrayJessica Avilez [facility] 1.2.840.114 350.1.13.10 4.2.7.2.686 [id number] General acute hospital 2022-04-06 09:38:00 2022-04-06 11:42:00 Emergency X DIYA CHOWDHURY [facility] ERT [id number] General acute hospital 2022-04-06 09:38:00 2022-04-06 11:42:00 Emergency EnrikegisselleDiya domingo [facility] 1.2.840.114 350.1.13.10 4.2.7.2.686 [id number] General acute hospital 2022-03-07 12:38:00 2022-03-07 12:38:00 Emergency [facility] [id number] [facility] 2022-03-07 12:38:00 2022-03-07 12:38:00 Emergency Emergency Fidel Cuellar [facility] [id number] [facility] 2022-01-19 17:18:00 2022-01-19 22:00:00 Emergency X DIRK YARBROUGH [facility] ERT [id number] General acute hospital 2022-01-19 17:18:00 2022-01-19 22:00:00 Emergency NicolasaLeticia vega Julio C [facility] 1.2.840.114 350.1.13.10 4.2.7.2.686 [id number] General acute hospital 2021-12-31 00:00:00 2021-12-31 00:00:00 Transition of Care Bandar Faye SHEARMarlon MASSIEL NAVARRO [id number] 350.1.13.10 4.2.7.2.686 [id number] General acute hospital 2021-12-28 14:53:00 2021-12-30 17:42:00 Inpatient X JESSICA PRADO [facility] [id number] General acute hospital 2021-12-28 14:53:00 2021-12-30 17:42:00 Hospital Encounter Pia Renteria Jelani [facility] 1.2.840.114 350.1.13.10 4.2.7.2.686 [id number] General acute hospital 2021-09-17 16:47:00 2021-09-17 16:47:00 Emergency [facility] [id number] [facility] 2020-06-06 16:07:00 2020-06-06 16:07:00 Emergency [facility] [id number] [facility] Results Test Description Test Time Test Comments Results Result Co mments Source [id number] 02:57:27* Test Item Value Reference Range Interpretation Comme nts TROPONIN I (test code = 2939876512) 0.003 ng/mL <=0.034 JUAN ALBERTO (test code [...] of biotin. Lab Interpretation (test code = 74984-6) Normal [facility]. METABOLIC PANEL ([id number])2023-12-13 02:46:25* Test Item Value Reference Range Interpretation Comme nts NA (test code = 8935009290) 144 mmol/L 135-145 K (test code = 4181280429) 3.9 mmol/L 3.5-5.0 CL (test code = 9710764303) 110 mmol/L 98-108 H CO2 TOTAL (test code = 6740125069) 20 mmol/L 23-31 L AGAP (test code = 0837716677) 14 2-16 BUN (test code = 7675971808) 13 mg/dL 7-23 GLUCOSE (test code = 1599487579) 163 mg/dL 70-110 H CREATININE (test code = 2160-0) 0.63 mg/dL 0.60-1.25 TOTAL BILI (test code = 2458375141) 0.3 mg/dL 0.1-1.1 CALCIUM (test code = 0424656628) 9.0 mg/dL 8.6-10.6 T PROTEIN (test code = 0137546673) 7.2 g/dL 6.3-8.2 ALBUMIN (test code = 6713125652) 4.1 g/dL 3.5-5.0 ALK PHOS (test code = 4996548377) 129 U/L 34-122 H ALTv (test code = 1742-6) 15 U/L 5-50 AST(SGOT) (test code = 6047312019) 34 U/L 13-40 eGFR (test code = 72381-4) 113.7 mL/min/1.73m2 CKD-EPI eGFR (2020). Assuming creatinine has been stable day-to-day for at least three months, the eGFR indicates Category G1 (>= 90 mL/min/1.73 m2) Lab Interpretation (test code = 90364-7) [facility], [id number] 02:45:25* Test Item Value Reference Range Interpretation Comme nts LIPASE (test code = 8869558205) 47 U/L 0-220 Lab Interpretation (test cod e = 23105-1) [facility] 1 [id number] 02:40:35History: chest pain . Exam: XR CHEST 1 VW Date: 12/12/2023 9:15 PM Ordering provider: RAFAEL BYRD Technical quality: Adequate Comparison: 11/05/2023. Findings: Frontal view of the chest is obtained. The cardiac silhouette is normal in size. No evidence of infiltrate,pleural effusion, CHF, or pneumothorax.[facility]CBC WITH [id number] 02:33:48* Test Item Value Reference Range Interpretation [...] 33.2 g/dL 31.2-35.0 RDW-SD (test code = 49048-9) 54.4 fL 38.5-51.6 H RDW-CV (test code = 788-0) 15.9 % 12.1-15.4 H PLT (test code = 777-3) 318 150-328 MPV (test code = 41634-2) 8.5 fL 9.8-13.0 L NRBC/100 WBC (test code = 0606043810) 0.0 0.0-10.0 NRBC x10^3 (test code = 8129983614) See_Comment [Automated messa ge] The system which generated this result transmitted reference range: 10*3/?L. The reference range was not used to interpret this result as normal/abnormal. GRAN MAT (NEUT) % (test code = 770-8) 50.1 % IMM GRAN % (test code = 3084210174) 0.40 % LYMPH % (test code = 736-9) 37.6 % MONO % (test code = 5905-5) 6.8 % EOS % (test code = 713-8) 4.1 % BASO % (test code = 706-2) 1.0 % GRAN MAT x10^3(ANC) (test code = 8200246633) 3.66 10*3/uL 1.99-6.95 IMM GRAN x10^3 (test code = 8813234899) 0.03 10*3/uL 0.00-0.06 LYMPH x10^3 (test code = 731-0) 2.75 10*3/uL 1.09-3.23 MONO x10^3 (test code = 742-7) 0.50 10*3/uL 0.36-1.02 EOS x10^3 (test code = 711-2) 0.30 10*3/uL 0.06-0.53 BASO x10^3 (test code = 704-7) 0.07 10*3/uL 0.01-0.09 Lab Interpretation (test code = 22661-2) [facility] 1 [id number] 20:15:30HISTORY: Chest pain. TECHNIQUE: Portable AP view of the chest is obtained. Comparison is beingmade with 04/06/2022 study. FINDINGS: No acute pneumonia. No pneumothorax or pleural effusion orpulmonarycongestion detected. Cardiac size is within normal limits.Prominent osteophytes are seen along right left vertebral margins at middleand lower thoracic spines. 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>400 [facility] (NA, K, CL, CO2, GLUCOSE, BUN, CREATININE, CA)2022-11-11 19:41:47* Test Item Value Reference Range Interpretation Comme nts NA (test code = 0240536796) 138 mmol/L 135-145 K (test code = 8280858337) 4.8 mmol/L 3.5-5.0 CL (test code = 1860925960) 103 mmol/L 98-108 CO2 TOTAL (test code = 1880076683) 26 mmol/L 23-31 AGAP (test code = 2347836069) 9 2-16 BUN (test code = 9550052642) 17 mg/dL 7-23 GLUCOSE (test code = 1309178074) 219 mg/dL 70-110 H CREATININE (test code = 5467809755) 0.72 mg/dL 0.60-1.25 CALCIUM (test code = 6822463103) 10.0 mg/dL 8.6-10.6 eGFR (test code = 0454109145) 114.6 mL/min/1.73m2 JUAN ALBERTO (test code = [...] imaging tests). Lab Interpretation (test code = 01531-7) [facility]normal [facility]MAGNESIUM2023-05-23 19:41:47* Test Item Value Reference Range Interpretation Comme nts MAGNESIUM (test code = 3003394257) 1.8 mg/dL 1.7-2.4 Lab Interpretation (test cod e = 28304-7) Normal [facility] HospitalCB WITH [id number] 19:25:26* Test Item Value Reference Range Interpretation Comme nts WBC (test code = 6690-2) 6.82 See_Comment [Automated Pin or [employer]ega [employer]] The system which generated this result transmitted reference range: 4.20 - 10.70 10*3/?L. The reference range was not used to interpret this result as normal/abnormal. RBC (test code = 789-8) 4.98 See_Comment [Automated Pin or [employer]] The system which generated this result transmitted [...] 33.9 g/dL 31.2-35.0 RDW-SD (test code = 61393-5) 46.0 fL 38.5-51.6 RDW-CV (test code = 788-0) 13.5 % 12.1-15.4 PLT (test code = 777-3) 237 See_Comment [Automated Pin or [employer]] The system which generated this result transmitted reference range: 150 - 328 10*3/?L. The reference range was not used to interpret this result as normal/abnormal. MPV (test code = 06910-2) 8.9 fL 9.8-13.0 L NRBC/100 WBC (test code = 8611093499) 0.0 See_Comment [Automated me ssage] The system which generated this result transmitted reference range: 0.0 - 10.0 /100 WBCs. The reference range was not used to interpret this result as normal/abnormal. NRBC x10^3 (test code = 3615468321) See_Comment [Automated messa ge] The system which generated this result transmitted reference range: 10*3/?L. The reference range was not used to interpret this result as normal/abnormal. GRAN MAT (NEUT) % (test code = 770-8) 71.2 % IMM GRAN % (test code = 8817594474) 0.30 % LYMPH % (test code = 736-9) 18.2 % MONO % (test code = 5905-5) 8.4 % EOS % (test code = 713-8) 1.0 % BASO % (test code = 706-2) 0.9 % GRAN MAT x10^3(ANC) (test code = 9412335703) 4.86 10*3/uL 1.99-6.95 IMM GRAN x10^3 (test code = 1252322985) 0.00-0.06 LYMPH x10^3 (test code = 731-0) 1.24 10*3/uL 1.09-3.23 MONO x10^3 (test code = 742-7) 0.57 10*3/uL 0.36-1.02 EOS x10^3 (test code = 711-2) 0.07 10*3/uL 0.06-0.53 BASO x10^3 (test code = 704-7) 0.06 10*3/uL 0.01-0.09 Lab Interpretation (test code = 54899-6) [facility]normal [facility] HospitalUA, Urinalysis Rflx Cult/Uigiq0777-09-15 22:20:00* Test Item Value Reference Range Interpretation Comme nts Color,Urine (test code = UCOL) Yellow Yellow Clarity,Urine (test code = UCLAR) Clear Clear Ph, Urine (test code = UPH) 7.0 5.0-9.0 N Specific [place],Urine (test code = USG) 1.020 1.005-1.030 N [...] code = ULEU) Negative mg/dL Negative Drug Screen,Qexfz7108-12-03 22:20:00* Test Item Value Reference Range Interpretation [...] UPROP) Negative Negative Complete Blood Count Auto Rikq9399-94-75 21:21:00* Test Item Value Reference Range Interpretation [...] code = NRBCP) 0 % Comprehensive Metabolic Bwgcd4044-71-26 21:21:00* Test Item Value Reference Range Interpretation [...] a race coefficient. Additional information canbe found at:[email or web address]_xpd_ [email or web address]_summary_flyer 5.pdf ([email or web address]) [Automated message] The system [...] = ALP) 134 U/L 46-116 H Ethanol Xcqgm4160-81-47 21:21:00* Test Item Value Reference Range Interpretation Comme nts Ethanol (test code = ETOH) < 3 mg/dL The pharmacologi yudy response to blood alcohol levels mayvary from individual to individual. The fatal concentrationhas been reported to be >400mg/dL. POCT GLUCOSE (AUTOMATED)2022-08-11 13:40:35* Test Item Value Reference Range Interpretation Comme nts POCT GLU (test code = 1773377875) 121 mg/dL 70-110 H Lab Interpretation (test cod e = 23665-1) Abnormal [facility] GLUCOSE (AUTOMATED)2022-08-11 02:18:58* Test Item Value Reference Range Interpretation Comme nts POCT GLU (test code = 6010957078) 183 mg/dL 70-110 H Lab Interpretation (test cod e = 53622-9) Abnormal [facility] GLUCOSE (AUTOMATED)2022-08-10 23:16:11* Test Item Value Reference Range Interpretation Comme nts POCT GLU (test code = 0884266004) 176 mg/dL 70-110 H Lab Interpretation (test cod e = 27014-5) Abnormal [facility] GLUCOSE (AUTOMATED)2022-08-10 18:22:51* Test Item Value Reference Range Interpretation Comme nts POCT GLU (test code = 5891894458) 165 mg/dL 70-110 H Lab Interpretation (test cod e = 35617-0) Abnormal [facility] GLUCOSE (AUTOMATED)2022-08-10 14:18:05* Test Item Value Reference Range Interpretation Comme nts POCT GLU (test code = 2568835142) 138 mg/dL 70-110 H Lab Interpretation (test cod e = 46446-6) Abnormal [facility] GLUCOSE (AUTOMATED)2022-08-10 11:01:21* Test Item Value Reference Range Interpretation Comme nts POCT GLU (test code = 0481256365) 143 mg/dL 70-110 H Lab Interpretation (test cod e = 03760-3) [facility]normal [facility] HospitalTROPONIN [id number] 06:51:18* Test Item Value Reference Range Interpretation Comme nts TROPONIN I (test code = 6966039981) 0.008 ng/mL <=0.034 JUAN ALBERTO (test code [...] of biotin. Lab Interpretation (test code = 66833-4) Normal [facility] HospitalN-TERMINAL OIO-[id number] 06:47:37* Test Item Value Reference Range Interpretation Comme nts NT-proBNP (test code = 1369982079) 37 pg/mL <=125 JUAN ALBERTO (test code = JUAN ALBERTO) Biotin has been reported to cause a negative bias, interpret results relative to patient's use of biotin. 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 METABOLIC PANEL (39290)2022-08-10 06:19:15* Test Item Value Reference Range Interpretation Comme nts NA (test code = 2000004338) 135 mmol/L 135-145 K (test code = 1056388014) 4.3 mmol/L 3.5-5.0 CL (test code = 2056038742) 98 mmol/L 98-108 CO2 TOTAL (test code = 2802322673) 30 mmol/L 23-31 AGAP (test code = 5437233547) 7 2-16 BUN (test code = 5779481742) 11 mg/dL 7-23 GLUCOSE (test code = 9349457934) 153 mg/dL 70-110 H CREATININE (test code = 8029051262) 0.77 mg/dL 0.60-1.25 TOTAL BILI (test code = 2808160602) 0.9 mg/dL 0.1-1.1 CALCIUM (test code = 2383227116) 10.0 mg/dL 8.6-10.6 T PROTEIN (test code = 4928775298) 7.7 g/dL 6.3-8.2 ALBUMIN (test code = 8654581697) 4.6 g/dL 3.5-5.0 ALK PHOS (test code = 2434495993) 92 U/L 34-122 ALTv (test code = 1742-6) 35 U/L 5-50 AST(SGOT) (test code = 4654874500) 42 U/L 13-40 H eGFR (test code = 8321922315) 106.1 mL/min/1.73m2 JUAN ALBERTO (test code = [...] imaging tests). Lab Interpretation (test code = 83787-0) [facility]normal [facility] HospitalMAGNESIUM2023-02-19 06:19:15* Test Item Value Reference Range Interpretation Comme nts MAGNESIUM (test code = 3694535428) 2.2 mg/dL 1.7-2.4 Lab Interpretation (test cod e = 38542-8) Normal [facility] HospitalLIPASE2023-02-19 06:18:55* Test Item Value Reference Range Interpretation Comme nts LIPASE (test code = 1101751747) 18 U/L 0-220 Lab Interpretation (test cod e = 80456-5) Normal [facility] HospitalCREATINE JGDJPT5922-20-44 06:18:55* Test Item Value Reference Range Interpretation Comme nts CK (test code = 9064039271) 174 U/L 33-194 Lab Interpretation (test cod e = 59541-6) Normal [facility] HospitalCBC WITH [id number] 06:02:35* Test Item Value Reference Range Interpretation [...] 32.4 g/dL 31.2-35.0 RDW-SD (test code = 65060-5) 50.2 fL 38.5-51.6 RDW-CV (test code = 788-0) 14.3 % 12.1-15.4 PLT (test code = 777-3) 241 See_Comment [Automated messa ge] The system which generated this result transmitted reference range: 150 - 328 10*3/?L. The reference range was not used to interpret this result as normal/abnormal. MPV (test code = 41075-1) 8.6 fL 9.8-13.0 L NRBC/100 WBC (test code = 3070765462) 0.0 See_Comment [Automated me ssage] The system which generated this result transmitted reference range: 0.0 - 10.0 /100 WBCs. The reference range was not used to interpret this result as normal/abnormal. NRBC x10^3 (test code = 6556983810) See_Comment [Automated messa ge] The system which generated this result transmitted reference range: 10*3/?L. The reference range was not used to interpret this result as normal/abnormal. GRAN MAT (NEUT) % (test code = 770-8) 63.9 % IMM GRAN % (test code = 2354014453) 0.50 % LYMPH % (test code = 736-9) 17.6 % MONO % (test code = 5905-5) 16.5 % EOS % (test code = 713-8) 0.7 % BASO % (test code = 706-2) 0.8 % GRAN MAT x10^3(ANC) (test code = 6190685656) 4.79 10*3/uL 1.99-6.95 IMM GRAN x10^3 (test code = 4137293768) 0.04 10*3/uL 0.00-0.06 LYMPH x10^3 (test code = 731-0) 1.32 10*3/uL 1.09-3.23 MONO x10^3 (test code = 742-7) 1.24 10*3/uL 0.36-1.02 H EOS x10^3 (test code = 711-2) 0.05 10*3/uL 0.06-0.53 L BASO x10^3 (test code = 704-7) 0.06 10*3/uL 0.01-0.09 Lab Interpretation (test code = 20532-5) [facility] [id number] 15:15:32* Test Item Value Reference Range Interpretation Comments TROPONIN I (test code = 9796599800) 0.007 ng/mL See_Comment [Automated message] The system [...] of biotin. Lab Interpretation (test code = 67138-0) Normal [facility] HospitalaPTT2022-10-16 15:08:29* Test Item Value Reference Range Interpretation Comme [facility] APTT Patient (test code = 3173-2) See_Comment [Automated message] The system which generated this result transmitted reference range: 23 - 38 Seconds. The reference range was not used to interpret this result as normal/abnormal. JUAN ALBERTO (test code = JUAN ALBERTO) The [facility] patient population mean normal value for aPTT is 30 seconds. Lab Interpretation (test code = 48912-5) Normal [facility] HospitalPROTHROMBIN TIME / [id number] 15:06:28* Test Item Value Reference Range Interpretation Comme [facility] PROTIME PATIENT (test code = 5964-2) See_Comment [Automated messa ge] The system which generated this result transmitted reference range: 12.0 - 14.7 Seconds. The reference range was not used to interpret this result as normal/abnormal. INR (test code = 6301-6) Normal INR <1.1; Warfarin Therapeutic range 2.0 to 3.0 or 2.5 to 3.5, depending upon the indications. Lab Interpretation (test code = 85663-0) Normal [facility] HospitalCOMP. METABOLIC PANEL (62817)2022-04-06 15:03:31* Test Item Value Reference Range Interpretation Comme [facility] NA (test code = 6372030883) 136 mmol/L 135-145 K (test code = 0552232519) 5.0 mmol/L 3.5-5 CL (test code = 9836383989) 104 mmol/L 98-108 CO2 TOTAL (test code = 1706794302) 21 mmol/L 23-31 L AGAP (test code = 0058865870) 2-16 BUN (test code = 3061241945) 11 mg/dL 7-23 GLUCOSE (test code = 7180551700) 162 mg/dL 70-110 H CREATININE (test code = 0996438940) 0.52 mg/dL 0.6-1.25 L TOTAL BILI (test code = 5822936453) 1.0 mg/dL 0.1-1.1 CALCIUM (test code = 6626056532) 9.3 mg/dL 8.6-10.6 T PROTEIN (test code = 7840664977) 7.4 g/dL 6.3-8.2 ALBUMIN (test code = 8723295973) 4.4 g/dL 3.5-5 ALK PHOS (test code = 2025578436) 134 U/L 34-122 H ALTv (test code = 1742-6) 17 U/L 5-50 AST(SGOT) (test code = 0282970339) 38 U/L 13-40 eGFR (test code = 7694035463) mL/min/1.73m2 JUAN ALBERTO (test code = JUAN [...] imaging tests). Lab Interpretation (test code = 63301-9) [facility]normal [facility] HospitalLIPASE, EJQJB7262-18-06 15:03:31* Test Item Value Reference Range Interpretation Comme nts LIPASE (test code = 3195676111) 29 U/L 0-220 Lab Interpretation (test cod e = 30606-4) Normal [facility] HospitalCBC WITH PRAU6232-14-21 14:51:49* Test Item Value Reference Range Interpretation Comme nts WBC (test code = 6690-2) See_Comment [Automated Pin or [employer]] The system which generated this result transmitted reference range: 4.20 - 10.70 10*3/?L. The reference range was not used to interpret this result as normal/abnormal. RBC (test code = 789-8) See_Comment [Automated Pin or Pega ge] The system which generated this result [...] 34.0 g/dL 31.2-35 RDW-SD (test code = 56618-4) 45.9 fL 38.5-51.6 RDW-CV (test code = 788-0) 13.3 % 12.1-15.4 PLT (test code = 777-3) See_Comment [Automated Pin or [employer]] The system which generated this result transmitted reference range: 150 - 328 10*3/?L. The reference range was not used to interpret this result as normal/abnormal. MPV (test code = 21442-7) 8.4 fL 9.8-13 L NRBC/100 WBC (test code = 4368884916) See_Comment [Automated me ssage] The system which generated this result transmitted reference range: 0.0 - 10.0 /100 WBCs. The reference range was not used to interpret this result as normal/abnormal. NRBC x10^3 (test code = 1979380787) See_Comment [Automated messa ge] The system which generated this result transmitted reference range: 10*3/?L. The reference range was not used to interpret this result as normal/abnormal. GRAN MAT (NEUT) % (test code = 770-8) 63.0 % IMM GRAN % (test code = 1660245979) 0.50 % LYMPH % (test code = 736-9) 25.2 % MONO % (test code = 5905-5) 9.8 % EOS % (test code = 713-8) 0.3 % BASO % (test code = 706-2) 1.2 % GRAN MAT x10^3(ANC) (test code = 2246940831) 3.73 10*3/uL 1.99-6.95 IMM GRAN x10^3 (test code = 5030203829) 0.03 10*3/uL 0-0.06 LYMPH x10^3 (test code = 731-0) 1.49 10*3/uL 1.09-3.23 MONO x10^3 (test code = 742-7) 0.58 10*3/uL 0.36-1.02 EOS x10^3 (test code = 711-2) 0.06-0.53 L BASO x10^3 (test code = 704-7) 0.07 10*3/uL 0.01-0.09 Lab Interpretation (test code = 61798-1) [facility]normal [facility]UA, Urinalysis Rflx Cult/Moprm7010-89-64 13:53:00* Test Item Value Reference Range Interpretation Comme nts Color,Urine (test code = UCOL) Yellow Yellow Clarity,Urine (test code = UCLAR) Cloudy Clear A Ph, Urine (test code = UPH) 7.5 5.0-9.0 N Specific [place],Urine (test code = USG) 1.025 1.005-1.030 N [...] = ULEU) Negative mg/dL Negative UF REFLEXDrug Screen,Slbwc0604-94-87 13:53:00* Test Item Value Reference Range Interpretation [...] UPROP) Negative Negative Complete Blood Count Auto Qrpq5602-39-15 12:58:00* Test Item Value Reference Range Interpretation [...] = NRBCP) 0 % Coronavirus PCR, COVID19 Euovi1400-34-68 12:58:00* Test Item Value Reference Range Interpretation Comme nts Coronavirus PCR, COVID19 Rapid (test code = SARSCOV2) Coronavirus PCR, COVID19 Rapid (test code = KISYXBY05.1) Reference Range: Negative SARS-CoV-2 PCR Result: (test code = SARS-CoV-2 PCR Result:) Negative by RT-PCR COVID-19 Status: AsymptomaticComprehensive Metabolic Yhrpl5459-34-95 12:58:00* Test Item Value Reference Range Interpretation [...] = ALP) 144 U/L 46-116 H Ethanol Gpzlj2723-81-77 12:58:00* Test Item Value Reference Range Interpretation Comme nts Ethanol (test code = ETOH) < 3 mg/dL The pharmacologi yudy response to blood alcohol levels mayvary from individual to individual. The fatal concentrationhas been reported to be >400mg/dL. PCALTZR1522-45-26 01:47:56* Test Item Value Reference Range Interpretation Comme nts [place] (test code = 1389098637) 0.7 mmol/L 0.6-1.2 JUAN ALBERTO (test code = JUAN ALBERTO) Toxic Range: ? Greater than 1.2 mmol/L Lab Interpretation (test code = 55512-6) Normal [facility] HospitalTROPONIN G7332-03-25 00:26:53* Test Item Value Reference Range Interpretation Comments TROPONIN I (test code = 2537360049) 0.002 ng/mL See_Comment [Automated message] The system [...] of biotin. 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 METABOLIC PANEL (01398)2022-01-20 00:16:16* Test Item Value Reference Range Interpretation Comme nts NA (test code = 0866549755) 137 mmol/L 135-145 K (test code = 6289826916) 4.5 mmol/L 3.5-5 CL (test code = 8541793471) 103 mmol/L 98-108 CO2 TOTAL (test code = 1048253779) 26 mmol/L 23-31 AGAP (test code = 0316282620) 2-16 BUN (test code = 4171754244) 10 mg/dL 7-23 GLUCOSE (test code = 3734855838) 121 mg/dL 70-110 H CREATININE (test code = 4956959369) 0.65 mg/dL 0.6-1.25 TOTAL BILI (test code = 1943788278) 0.8 mg/dL 0.1-1.1 CALCIUM (test code = 2937088191) 11.4 mg/dL 8.6-10.6 H T PROTEIN (test code = 7021540643) 7.2 g/dL 6.3-8.2 ALBUMIN (test code = 5712721235) 4.6 g/dL 3.5-5 ALK PHOS (test code = 7111187054) 112 U/L 34-122 ALTv (test code = 1742-6) 19 U/L 5-50 AST(SGOT) (test code = 4316810288) 26 U/L 13-40 eGFR (test code = 5674964951) mL/min/1.73m2 JUAN ALBERTO (test code = JUAN [...] imaging tests). Lab Interpretation (test code = 58201-4) Abnormal [facility] WITH DMYW9801-85-18 23:43:54* Test Item Value Reference Range Interpretation Comme nts WBC (test code = 6690-2) See_Comment [Automated Pin or Pega ge] The system which generated this result transmitted reference range: 4.20 - 10.70 10*3/?L. The reference range was not used to interpret this result as normal/abnormal. RBC (test code = 789-8) See_Comment [Automated Pin or Pega ge] The system which generated this result [...] 34.4 g/dL 31.2-35 RDW-SD (test code = 28601-7) 44.0 fL 38.5-51.6 RDW-CV (test code = 788-0) 12.6 % 12.1-15.4 PLT (test code = 777-3) See_Comment [Automated Pin or Pega ge] The system which generated this result transmitted reference range: 150 - 328 10*3/?L. The reference range was not used to interpret this result as normal/abnormal. MPV (test code = 65844-7) 9.1 fL 9.8-13 L NRBC/100 WBC (test code = 9560156620) See_Comment [Automated Alloptic ssage] The system which generated this result transmitted reference range: 0.0 - 10.0 /100 WBCs. The reference range was not used to interpret this result as normal/abnormal. NRBC x10^3 (test code = 9240525071) See_Comment [Automated Pin or Pega ge] The system which generated this result transmitted reference range: 10*3/?L. The reference range was not used to interpret this result as normal/abnormal. GRAN MAT (NEUT) % (test code = 770-8) 69.8 % IMM GRAN % (test code = 2148931863) 0.40 % LYMPH % (test code = 736-9) 18.0 % MONO % (test code = 5905-5) 10.9 % EOS % (test code = 713-8) 0.1 % BASO % (test code = 706-2) 0.8 % GRAN MAT x10^3(ANC) (test code = 6472338306) 5.58 10*3/uL 1.99-6.95 IMM GRAN x10^3 (test code = 8658193743) 0.03 10*3/uL 0-0.06 LYMPH x10^3 (test code = 731-0) 1.44 10*3/uL 1.09-3.23 MONO x10^3 (test code = 742-7) 0.87 10*3/uL 0.36-1.02 EOS x10^3 (test code = 711-2) 0.06-0.53 L BASO x10^3 (test code = 704-7) 0.06 10*3/uL 0.01-0.09 Lab Interpretation (test code = 48789-3) Abnormal [facility] GLUCOSE (AUTOMATED)2022-01-19 22:27:41* Test Item Value Reference Range Interpretation Comme nts POCT GLU (test code = 1012256554) 123 mg/dL 70-110 H Lab Interpretation (test cod e = 67639-6) Abnormal [facility] GLUCOSE (AUTOMATED)2021-12-30 22:08:16* Test Item Value Reference Range Interpretation Comme nts POCT GLU (test code = 9365292382) 167 mg/dL 70-110 H Lab Interpretation (test cod e = 19359-6) Abnormal [facility] GLUCOSE (AUTOMATED)2021-12-30 16:50:40* Test Item Value Reference Range Interpretation Comme nts POCT GLU (test code = 4214112531) 154 mg/dL 70-110 H Lab Interpretation (test cod e = 18498-9) Abnormal [facility] GLUCOSE (AUTOMATED)2021-12-30 12:38:43* Test Item Value Reference Range Interpretation Comme nts POCT GLU (test code = 4708452971) 164 mg/dL 70-110 H Lab Interpretation (test cod e = 20550-5) Abnormal [facility] GLUCOSE (AUTOMATED)2021-12-30 02:14:58* Test Item Value Reference Range Interpretation Comme nts POCT GLU (test code = 7074440254) 220 mg/dL 70-110 H Lab Interpretation (test cod e = 72702-5) Abnormal [facility] GLUCOSE (AUTOMATED)2021-12-29 21:50:02* Test Item Value Reference Range Interpretation Comme nts POCT GLU (test code = 1273262338) 191 mg/dL 70-110 H Lab Interpretation (test cod e = 75821-0) Abnormal [facility] [facility]2021-12-29 20:15:01* Test Item Value Reference Range Interpretation Comme nts POCT GLU (test code = 7049409344) 163 mg/dL 70-110 H Lab Interpretation (test cod e = 39114-1) [facility]2021-12-29 19:12:22* Test Item Value Reference Range Interpretation Comme nts Height (test code = 5978767051) in Weight (test code = 5253902817) lbs Systolic BP (test code = 7912412044) mmHg Diastolic BP (test code = 9424405623) mmHg Heart Rate (test code = 9525669780) bpm BSA (test code = 4290656799) 1.62 m2 Ao root annulus (test code = 6134604830) 2.45 cm Ao root diam (test code = 5785817800) 2.45 cm Aortic root (test code = 3941659511) 2.45 cm ACS (test code = 2495002012) 1.66 cm LA size (test code = 3792384445) 3.2 cm LVOT diameter (test code = 7656958280) 1.95 cm LVIDD (test code = 6098077036) 3.60 cm IVS (test code = 2455295721) 0.94 cm Interventricular Septum Diastolic Thickness by 2D (test code = 0809079) 0.94 cm LVPWD (test code = 1435486373) 0.80 cm PW (test code = 1363515995) 0.80 cm 0.6-1.1 EF(Teich) (test code = 8837257392) 52.80 % LVIDS (test code = 1934732338) 2.60 cm FS (test code = 3554897079) 27 % EF - 2D (test code = 05344834) 52.80 % LAV(MOD-sp4) (test code = 5852502185) 16.80 mL MV Peak E Jovany (test code = 8260963555) 46.1 cm/s E wave decelartion time (test code = 0413449468) 0.31 s MV Peak A Jovany (test code = 8119632098) 58.1 cm/s E/A ratio (test code = 5158969030) ratio MV E/e' septal (test code = 5328787957) 5.7 cm/s Tapse (test code = 3169471393) 1.60 cm LVOT stroke volume (test code = 6107497735) 52.10 cm3 LVOT peak jovany (test code = 3336443290) 110.6 cm/s LVOT mn grad (test code = 4189903828) mmHg AV LVOT peak gradient (test code = 5434911480) mmHg LVOT peak VTI (test code = 4622463507) 17.4 cm LV V1 mean (test code = 9026550084) 66.10 cm/s Aortic valve mean velocity (test code = 0204813769) 73.0 cm/s Ao peak jovany (test code = 6251371672) 124.6 cm/s Ao VTI (test code = 1541838069) 18.6 cm AV area by cont VTI (test code = 3464458676) 2.8 cm2 AV area peak jovany (test code = 9541844646) 2.7 cm2 Ao max PG (test code = 8586610528) 6.20 mm[Hg] AV peak gradient (test code = 2948866296) mmHg AV valve area (test code = 3641716138) 2.80 cm2 AV mean gradient (test code = 0386488594) mmHg Radiology Study observation (narrative) (test code = 11577-8) JUAN ALBERTO (test code = JUAN ALBERTO) [...] of Lumason ultrasound enhancing agent used. [facility]2021-12-29 12:50:31* Test Item Value Reference Range Interpretation Comme nts POCT GLU (test code = 1421023186) 141 mg/dL 70-110 H Lab Interpretation (test cod e = 34137-0) [facility]normal [facility] HospitalTroponin [id number] 10:38:31* Test Item Value Reference Range Interpretation Comments TROPONIN I (test code = 8793256866) 0.003 ng/mL See_Comment [Automated message] The system [...] of biotin. Lab Interpretation (test code = 26510-7) Normal [facility] HospitalLIPID PANEL (36686)(TOTAL CHOLESTEROL, TRIGLYCERIDES, HDL)2021-12-29 05:56:47* Test Item Value Reference Range Interpretation Comme nts CHOL (test code = 6637276468) 168 mg/dL 120-200 HDL (test code = 3047697806) 102 mg/dL See_Comment [[employer]] The system which generated this result transmitted reference range: >=40. The reference range was not used to interpret this result as normal/abnormal. HDLC RATIO (test code = 6891509468) See_Comment [Automated Me-Mover] The system which generated this result transmitted reference range: <=5.0. The reference range was not used to interpret this result as normal/abnormal. TRIG (test code = 6908202784) 55 mg/dL 30-170 LDL CHOL (test code = 28152-7) 55 mg/dL See_Comment [[employer]] The system which generated this result transmitted reference range: <=160. The reference range was not used to interpret this result as normal/abnormal. VLDL (test code = 3245092130) 11 mg/dL 5-60 Lab Interpretation (test code = 84152-5) Normal [facility] HospitalThyroid Stimulating Hormone (TSH)2021-12-29 05:40:29* Test Item Value Reference Range Interpretation Comme nts TSH (test code = 8036895831) See_Comment Biotin has been reported to cause a negative bias, interpret results relative to patient's use of biotin. [Automated message] The system which generated this result transmitted reference range: 0.45 - 4.70 mIU/L. The reference range was not used to interpret this result as normal/abnormal. Lab Interpretation (test code = 56909-3) Normal [facility] [id number] 05:34:29* Test Item Value Reference Range Interpretation Comments TROPONIN I (test code = 3647155790) 0.006 ng/mL See_Comment [Automated message] The system [...] of biotin. Lab Interpretation (test code = 37994-9) Normal [facility] HospitalETHANOL2022-07-10 04:43:01 ALCOHOL<10mg/dL12/28/2021 11:43 PM [facility] Greater than or equal to 80 mg/dL. NOTE: Whole blood values are approximately 10% to 15% lower than serum and plasma.[facility] Glycosylated Hemoglobin (A1C)2021-12-29 01:51:44* Test Item Value Reference Range Interpretation Comme nts HGB A1C (test code = 4548-4) 6.5 % 4-5.7 H JUAN ALBERTO (test code = JUAN ALBERTO) Reference RangesNormal: <5.7%Prediabetes: 5.7 - 6.4%Diabetes: > 6.5% Lab Interpretation (test code = 00445-7) [facility] [id number] 21:26:50* Test Item Value Reference Range Interpretation Comments TROPONIN I (test code = 0888991820) 0.002 ng/mL See_Comment [Automated message] The system [...] of biotin. Lab Interpretation (test code = 86188-1) Normal [facility] HospitalN-TERMINAL [id number] 21:23:29* Test Item Value Reference Range Interpretation Comme nts NT-proBNP (test code = 0559695225) 41 pg/mL See_Comment [Automated message] The system which generated this result transmitted reference range: <=125. The reference range was not used to interpret this result as normal/abnormal. JUAN ALBERTO (test code = JUAN ALBERTO) Biotin has been reported to cause a negative bias, interpret results relative to patient's use of biotin. Lab Interpretation (test code = 61069-2) Normal [facility] HospitalAMMONIA, [id number] 21:20:38* Test Item Value Reference Range Interpretation Comme nts AMMONIA (test code = 1282170837) 9-33 L Slight hemolysis Lab Interpretation (test code = 73292-4) Abnormal [facility] HospitalCOMP. METABOLIC PANEL (04174)2021-12-28 21:08:48* Test Item Value Reference Range Interpretation Comme nts NA (test code = 3456232697) 137 mmol/L 135-145 K (test code = 0635687809) 4.5 mmol/L 3.5-5 CL (test code = 8050996976) 97 mmol/L 98-108 L CO2 TOTAL (test code = 4107382271) 29 mmol/L 23-31 AGAP (test code = 8171063579) 2-16 BUN (test code = 9182373442) 10 mg/dL 7-23 GLUCOSE (test code = 3347688838) 188 mg/dL 70-110 H CREATININE (test code = 0411464460) 0.58 mg/dL 0.6-1.25 L TOTAL BILI (test code = 6890640283) 0.8 mg/dL 0.1-1.1 CALCIUM (test code = 6763718920) 10.5 mg/dL 8.6-10.6 T PROTEIN (test code = 5905396404) 7.6 g/dL 6.3-8.2 ALBUMIN (test code = 4228762048) 4.5 g/dL 3.5-5 ALK PHOS (test code = 5182745634) 107 U/L 34-122 ALTv (test code = 1742-6) 66 U/L 5-50 H AST(SGOT) (test code = 1848172114) 96 U/L 13-40 H eGFR (test code = 7163116534) mL/min/1.73m2 JUAN ALBERTO (test code = JUAN [...] imaging tests). Lab Interpretation (test code = 80560-6) Abnormal [facility] HospitalPROTHROMBIN TIME / [id number] 21:01:25* Test Item Value Reference Range Interpretation Comme nts PROTIME PATIENT (test code = 5964-2) See_Comment [Automated Pin or Pega ge] The system which generated this result transmitted reference range: 12.0 - 14.7 Seconds. The reference range was not used to interpret this result as normal/abnormal. INR (test code = 6301-6) Normal INR <1.1; Warfarin Therapeutic range 2.0 to 3.0 or 2.5 to 3.5, depending upon the indications. Lab Interpretation (test code = 10071-6) Normal [facility] HospitalCBC WITH [id number] 20:54:03* Test Item Value Reference Range Interpretation Comme nts WBC (test code = 6690-2) See_Comment [Automated Pin [employer]] The system which generated this result transmitted reference range: 4.20 - 10.70 10*3/?L. The reference range was not used to interpret this result as normal/abnormal. RBC (test code = 789-8) See_Comment [Automated Pin or Pega ge] The system which generated this result [...] 34.2 g/dL 31.2-35 RDW-SD (test code = 75448-9) 47.8 fL 38.5-51.6 RDW-CV (test code = 788-0) 13.3 % 12.1-15.4 PLT (test code = 777-3) See_Comment [Automated Pin or Pega ge] The system which generated this result transmitted reference range: 150 - 328 10*3/?L. The reference range was not used to interpret this result as normal/abnormal. MPV (test code = 57106-5) 8.6 fL 9.8-13 L NRBC/100 WBC (test code = 7884316174) See_Comment [Automated me ssage] The system which generated this result transmitted reference range: 0.0 - 10.0 /100 WBCs. The reference range was not used to interpret this result as normal/abnormal. NRBC x10^3 (test code = 7777849846) See_Comment [Automated messa ge] The system which generated this result transmitted reference range: 10*3/?L. The reference range was not used to interpret this result as normal/abnormal. GRAN MAT (NEUT) % (test code = 770-8) 64.1 % IMM GRAN % (test code = 4051668284) 0.40 % LYMPH % (test code = 736-9) 16.6 % MONO % (test code = 5905-5) 17.2 % EOS % (test code = 713-8) 0.2 % BASO % (test code = 706-2) 1.5 % GRAN MAT x10^3(ANC) (test code = 7758292784) 3.47 10*3/uL 1.99-6.95 IMM GRAN x10^3 (test code = 7158851102) 0-0.06 LYMPH x10^3 (test code = 731-0) 0.90 10*3/uL 1.09-3.23 L MONO x10^3 (test code = 742-7) 0.93 10*3/uL 0.36-1.02 EOS x10^3 (test code = 711-2) 0.06-0.53 L BASO x10^3 (test code = 704-7) 0.08 10*3/uL 0.01-0.09 Lab Interpretation (test code = 74184-1) Abnormal [facility] HospitalEthanol [id number] 21:08:00* Test Item Value Reference Range Interpretation Comme nts Ethanol (test code = ETOH) < 3 mg/dL The pharmacologi yudy response to blood alcohol levels mayvary from individual to individual. The fatal concentrationhas been reported to be >400mg/dL. Complete Blood Count Auto [id number] 17:33:00* Test Item Value Reference Range Interpretation [...] = NRBCP) 0 % UA, Urinalysis Rflx Cult/[id number] 17:33:00* Test Item Value Reference Range Interpretation Comme nts Color,Urine (test code = UCOL) Dark Yellow Yellow A Clarity,Urine (test code = UCLAR) Clear Clear Ph, Urine (test code = UPH) 6.5 5.0-9.0 N Specific [place],Urine (test code = USG) 1.015 1.005-1.030 N [...] = ULEU) Trace mg/dL Negative A Urine [id number] 17:33:00* Test Item Value Reference Range Interpretation Comme nts RBC,Urine (test code = URBCUF) None Seen /HPF 0-2 WBC,Urine (test code = UWBCUF) 0-5 /HPF 0-5 Epithelial Cell,Urine (test code = UECUF) 0-5 /HPF 0-5 Casts,Urine (test code = UCASTUF) None Seen /LPF None Seen Bacteria,Urine (test code = UBACTUF) None Seen /hpf None Seen Drug Screen,[id number] 17:33:00* Test Item Value Reference Range Interpretation [...] code = UPROP) Negative Negative Comprehensive Metabolic [id number] 17:33:00* Test Item Value Reference Range Interpretation [...] 101 U/L 46-116 N Sars-CoV-2/FLU A/B RSV [id number] 17:31:00* Test Item Value Reference Range Interpretation [...] SARS-CoV-2 PCR Result:) Negative by RT-PCR Drug Screen,[id number] 17:20:00* Test Item Value Reference Range Interpretation [...] UPROP) Negative Negative Complete Blood Count Auto [id number] 17:14:00* Test Item Value Reference Range Interpretation [...] code = NRBCP) 0 % Comprehensive Metabolic [id number] 17:14:00* Test Item Value Reference Range Interpretation [...] = ALP) 207 U/L 46-116 H Ethanol [id number] 17:14:00* Test Item Value Reference Range Interpretation Comme nts Ethanol (test code = ETOH) 192 mg/dL Complete Blood Count Auto [id number] 20:20:00* Test Item Value Reference Range Interpretation [...] code = NRBCP) 0 % Comprehensive Metabolic [id number] 20:20:00* Test Item Value Reference Range Interpretation [...] = ALP) 189 U/L 46-116 H Ethanol [id number] 20:20:00* Test Item Value Reference Range Interpretation Comme nts Ethanol (test code = ETOH) 10 mg/dL Sars-CoV-2/FLU A/B RSV [id number] 20:20:00* Test Item Value Reference Range Interpretation [...] Negative by Nucleic Acid Amplification UA, Urinalysis [id number] 20:20:00* Test Item Value Reference Range Interpretation Comme nts Color,Urine (test code = UCOL) Yellow Y Clarity,Urine (test code = UCLAR) Clear Clear PH,Urine (test code = UPH.XX) 7.0 5.5-8.5 Specific [place],Urine (test code = USG) 1.020 1.005-1.030 N [...] code = ULEU) Negative cells/uL Negative Drug Screen,[id number] 20:20:00* Test Item Value Reference Range Interpretation [...] (test code = UTHCS) Negative RESULT TO [facility] CT head/brain wo [facility] [address] [place] [address] Patient Name: Walt Velazquez Medical Record#: [id number] Address: Homeless City/State/Zip: [place] [address]: Vinnie Navarro MD Insurance: Self Pay /Age/Sex: 1970/50/M Admit/Reg Date: 09/17/[address]: Vinnie Navarro MD Location: [facility]/ PCP: PcpMd KERWIN Jimenez Date of Service: 09/17/21 Order (s): CT head/brain wo con CPT Code: 49742 Report Number: [id number] Reason for Exam: Altered mental status Location [...] 09/17/211824 TD/TT: 09/17/211824 Tech: ES135 cc: PCPNO; MARY KATELA* Vinnie Navarro MD; Pcp-None,Md SURESH Notes Date/Time [...] steady gait, in no apparent distress, T [facility] [employer] 2023-12-12 22:20:05 Pt removed all monitoring equipment T [facility] [employer] 2023-12-12 20:33:23 Pt brought in by [place] [employer] for medical clearance. [facility] check pt out on scene but after pt complained of chest pain. [place] [employer] brought pt in for clearance for county. Zeina Albrecht RN [facility] 2023-11-05 16:26:20 Pt discharged with diagnosis of CP. Printed and verbal instructions reviewed with and given to pt. Prescriptions given x 0. Pt verbalized understanding of teaching and recommended follow-up. Denies questions or concerns at this time. Pt ambulatory to holding room to await transportation at discharge. Appears in no apparent distress. No ataxia noted. [facility]. Renae Saldivar RN [facility] 2023-11-05 14:56:10 Walt Festus Velazquez Sr. is a 52 year old male arrive via [facility] c/o " throbbing ball in chest" since 0600 has been constant, pt immediately asks for food, T Emani Gomez RN [facility]
--- NOTE | 2024-02-17 12:12 | ER ---
Nurse's Notes [facility] Name: Walt Velazquez Age: 53 yrs Sex: Male : 1970 Arrival Date: 02/17/2024 Time: 10:33 Bed IW1 Private MD: Diagnosis: Pain in left foot Presentation: 02/16 10:45 Chief complaint: Patient states: L foot 4th digit pain pain for a few weeks, worse ll1 today EMS states: VSS, + ETOH. Coronavirus screen: Client denies travel out of the [place] in the last 14 days. At this time, the client does not indicate any symptoms associated with coronavirus-19. Ebola Screen: Patient denies travel to an Ebola-affected area in the 21 days before illness onset. Initial Sepsis Screen: Does the patient meet any 2 criteria? No. Patient's initial sepsis screen is negative. Does the patient have a suspected source of infection? No. Patient's initial sepsis screen is negative. Risk Assessment: Do you want to hurt yourself or someone else? Patient reports no desire to harm self or others. Onset of symptoms was January 21, 2024. 10:45 Method Of Arrival: EMS ll1 10:45 Acuity: LATASHA 4 ll1 Triage Assessment: 10:47 General: Appears in no apparent distress. Behavior is calm, cooperative, appropriate ll1 for age. Pain: Complains of pain in left foot Pain currently is 10 out of 10 on a pain scale. Quality of pain is described as aching, throbbing. Musculoskeletal: Reports pain in left foot. Historical: - Allergies: 10:45 Trazodone; ll1 - PMHx: 10:45 Hypertensive disorder; Seizure; ll1 - Immunization history:: Adult Immunizations up to date. - Infectious Disease History:: Denies. - Social history:: Patient uses "smoke crack every day", Smoking status: Patient reports the use of cigarette tobacco products, smokes one pack cigarettes per day. - Family history:: not pertinent. - Hospitalizations: : No recent hospitalization is reported. Screenin:48 [facility] ED Fall Risk Assessment (Adult) History of falling in the last 3 months, ll1 including since admission Yes- single mechanical fall (1 pt) Confusion or Disorientation No (0 pts) Intoxicated or Sedated Yes (3 pts) Impaired Gait Yes (1 pt) Mobility Assist Device Used Yes (1 pt) Altered Elimination No (0 pt) Score/Fall Risk Level 3 or more points = High Risk Maintained a safe environment, Hourly rounding (assess needs \\T\\ fall precautionary measures) done. Abuse screen: Denies threats or abuse. Nutritional screening: No deficits noted. Tuberculosis screening: No symptoms or risk factors identified. Assessment: 11:44 Reassessment: pt not in lobby. iw Vital Signs: 10:45 BP 110 / 66; Pulse 82; Resp 18; Temp 97.6; Pulse Ox 99% ; Weight 72.57 kg; Height 5 ft. ll1 3 in. ; Pain 10/10; 10:45 Body Mass Index 28.34 (72.57 kg, 160.02 cm) ll1 10:45 Pain Scale: Adult ll1 ED Course: 10:34 Patient arrived in ED. rn 10:34 Kaiser Marie MD is Attending Physician. rn 10:47 Triage completed. ll1 10:47 Arm band placed on. ll1 10:48 PO fluids given. sprite, sandwich and chips given in lobby. ll1 12:17 No provider procedures requiring assistance completed. Patient did not have IV access ll1 during this emergency room visit. 12:18 Patient has correct armband on for positive identification. Provided Education on: n/a. ll1 Administered Medications: No medications were administered Medication: 12:18 VIS not applicable for this client. ll1 Outcome: 12:12 Discharge ordered by . rn 12:17 Discharged to home ambulatory, ll1 12:17 Condition: stable 12:17 Discharge instructions given to patient, Instructed on discharge instructions, follow up and referral plans. Demonstrated understanding of instructions, follow-up care, left without written discharge instructrions 12:19 Patient left the ED. ll1 Signatures: Marita Hernandez RN RN Kaiser Marie MD MD rn Lewis, Lynsay, RN RN ll1
--- NOTE | 2024-02-17 12:12 | EDPHYS ---
Physician Documentation [facility] Name: Walt Velazquez Age: 53 yrs Sex: Male : 1970 Arrival Date: 02/17/2024 Time: 10:33 Bed IW1 Private MD: ED Physician Kaiser Marie HPI: 02/16 12:09 This 53 yrs old Male presents to ER via EMS with complaints of Foot Pain - rn left. 12:09 The patient presents with pain. rn 12:10 The complaints affect the left foot. Onset: The symptoms/episode began/occurred at an rn unknown time. The patient has experienced similar episodes in the past. Patient reports had seizure today, noticed left foot pain and swelling. Does not recall injury. Reports chronic left foot pain. no fever or chills... Historical: - Allergies: 10:45 Trazodone; ll1 - PMHx: 10:45 Hypertensive disorder; Seizure; ll1 - Immunization history:: Adult Immunizations up to date. - Infectious Disease History:: Denies. - Social history:: Patient uses "smoke crack every day", Smoking status: Patient reports the use of cigarette tobacco products, smokes one pack cigarettes per day. - Family history:: not pertinent. - Hospitalizations: : No recent hospitalization is reported. ROS: 12:10 Constitutional: Negative for fever, chills, and weight loss, MS/Extremity: + left foot rn pain Skin: Negative for injury, rash, and discoloration, Exam: 12:10 Constitutional: This is a well developed, well nourished patient who is awake, alert, rn and in no acute distress. MS/ Extremity: Mild swelling dorsum of left foot without cyanosis or wound. No evidence of cellulitis. Vital Signs: 10:45 BP 110 / 66; Pulse 82; Resp 18; Temp 97.6; Pulse Ox 99% ; Weight 72.57 kg; Height 5 ft. ll1 3 in. ; Pain 10/10; 10:45 Body Mass Index 28.34 (72.57 kg, 160.02 cm) ll1 10:45 Pain Scale: Adult ll1 MDM: 10:34 Patient medically screened. rn 12:10 Differential diagnosis: fracture, sprain, arthritis, cellulitis. Data reviewed: vital rn signs, nurses notes, and as a result, I will discharge patient. Counseling: I had a detailed discussion with the patient and/or guardian regarding the historical points, exam findings, and any diagnostic results supporting the discharge/admit diagnosis, the need for outpatient follow up, to return to the emergency department if symptoms worsen or persist or if there are any questions or concerns that arise at home. ED course: Patient refuses x-ray. Patient ate and left.. 02/16 10:34 Order name: PO challenge; Complete Time: 10:49 rn Administered Medications: No medications were administered Disposition Summary: 02/17/24 12:12 Discharge Ordered Notes: Location: Home rn Problem: new rn Symptoms: have improved rn Condition: Stable rn Diagnosis - Pain in left foot rn Followup: rn - With: Private Physician - When: As needed - Reason: Recheck today's complaints, Re-evaluation by your physician Discharge Instructions: - Discharge Summary Sheet rn - Musculoskeletal Pain rn - Foot Pain rn Forms: - Medication Reconciliation Form rn - Antibiotic general intern - Prescription Opioid Use rn - Patient Portal Instructions rn - Leadership Thank You Letter rn Signatures: Dispatcher [employer] Kaiser Rausch MD MD rn Lewis, Lynsay, RN RN ll1 Corrections: (The following items were deleted from the chart) 11:44 10:48 Foot Left 3 View+RAD.RAD.BRZ ordered. YULIYA DWYER
[2024-02-17 12:39] VITALS: BP 110/66; TEMP 97.6; O2SAT 99
== END 2024-02-17 12:19 | disposition home or self-care (01) ==
LOC: ER 10:33
DX: M79.672 Pain in left foot (principal); F17.210 Nicotine dependence, cigarettes, uncomplicated

== ENCOUNTER 2024-02-17 12:27 | Emergency (ER) | payer SELFPAY ==
--- OUTSIDE RECORDS SUMMARY | 2024-02-17 12:34 | XMS REPORT | Continuity of Care Document ---
Author Name Unknown Address [address] [place] [address] [facility] Address [address] [place] [address] Care Team Providers Care Certified Control Systems Technician Name Role Phone Pcp-None Primary Care Physician Unavailab aRfael Thomas MD Attending Clinician [phone] Sulaiman Hawkins DO Attending Clinician [phone] HEMANT KLEIN Attending Clinician Unavailable Hemant Klein MD Attending Clinician [phone] [place] Attending Clinician Unavailab JESSICA Gallardo Attending Clinician Unavailable Rayray Driscoll MD Attending Clinician [phone] Jessica Prado MD Attending Clinician [phone] Oswald Murphy MD Attending Clinician [phone] DIYA CHOWDHURY Attending Clinician Unavailab Diya Mackey DO Attending Clinician [phone] Fidel Cuellar Attending Clinician Unavailable DIRK YARBROUGH Attending Clinician Unavailable Leticia Rowland Attending Clinician [phone] Dirk Yarbrough MD Attending Clinician [phone] Faye Portillo LVN Attending Clinician [phone] Pia Reddy Attending Clinician [phone] Vinnie Navarro Attending Clinician Unavailable OSWALD MURPHY Admitting Clinician Unavailable Oswald Murphy MD Admitting Clinician [phone] DIYA CHOWDHURY Admitting Clinician UnavailLeticia Gaytan Admitting Clinician Unavailable JESSICA PRADO Admitting Clinician Unavailable Jessica Prado MD Admitting Clinician [phone] Payers Payer Name Policy Type Policy Number Effective Date Expirati on Date Source Problems Condition Name Condition Details Condition Category Status Onset Date Resolution Date Last Treatment Date Treating Clinician Comments Source Alcohol withdrawal syndrome with complicati on Alcohol withdrawal syndrome with complicati on Disease Active 2-19 00:00: 00 [facility] Type 2 diabetes mellitus with other specified complicati on Type 2 diabetes mellitus with other specified complicati on Disease Active 12-29 00:00: 00 [facility] Dyslipidem ia Dyslipidem ia Disease Active 12-29 00:00: 00 [facility] Chest pain, unspecifie d type Chest pain, unspecifie d type Disease Active 7- 00:00: 00 [facility] Priapism Priapism Disease Active 2013-06- 00:00: 00 [facility] Allergies, Adverse Reactions, Alerts Allergy Name Allergy Type Status Severity Reaction(s) Onset Date Inactive Date Treating Clinician Comments Source No Known Drug Allergie s DA Active U 4-25 00:00: 00 [facility] No Known Drug Allergie s DA Active U 0 9-16 00:00: 00 [facility] No Known Drug Allergie s DA Active U 3-29 00:00: 00 [facility] No Known Drug Allergie s DA Active U 2019-06 2-16 00:00: 00 [facility] No Known Drug Allergie s DA Active U 2019-06 2-15 00:00: 00 [facility] No Known Drug Allergie s DA Active U 2019-06 00:00: 00 [facility] Trazodon e Propensi ty to adverse reaction s Active Other - See comments 10-06 00:00: 00 [facility] TRAZODON E DRUG INGREDI Active Other-Cmnt 10-06 00:00: 00 [facility] Social History Social Habit Start Date Stop Date Quantity Comments Source History of tobacco use [facility]igarette [facility]oker [facility] beverage intake 2023-11-07 00:00:00 2023-11-07 00:00:00 Current drinker of alcohol (finding) [facility] History of Social function 2023-11-07 00:00:00 2023-11-07 00:00:00 [facility] Exposure to SARS-CoV-2 (event) 2022-11-01 00:00:00 2022-11-11 13:57:00 Not sure [facility] Tobacco use and exposure 2022-08-10 00:00:00 2022-08-10 00:00:00 User of smokeless tobacco [facility] Alcohol intake 2022-08-10 00:00:00 2022-08-10 00:00:00 Current drinker of alcohol (finding) [facility] Tobacco Comment 2022-08-10 00:00:00 2022-08-10 00:00:00 1/2 a pack a day [facility] Sex assigned at 1970 00:00:00 1970 00:00:00 [facility] Smoking Status Start Date Stop Date Source Smokes tobacco daily 2022-08-10 00:00:00 [facility] Medications Ordered Medication Name Filled Medication Name Start Date Stop Date Current Medication? Ordering Clinician Indication Dosage Frequency Signature (SIG) Comments Components Source NaCl 0.9% (NS) bolus infusion 1,000 mL 11-11 19:45: 00 11-11 20:23 :00 No 1000mL at 999 mL/hr, 1,000 mL, IV Piggyback, ONCE, 1 dose, On Thu11/11/22 at 1445, STAT [facility] multivitami n tablet 1 tablet 08-12 15:00: 00 Yes 1{tbl} 1 tablet, Oral, DAILY, First dose on Thu08/12/22 at 0900, Until Discontinu ed, Routine [facility] foLIC acid (FOLATE) tablet 1 mg 08-12 15:00: 00 Yes 1mg 1 mg, Oral, DAILY, First dose on Thu08/12/22 at 0900, Until Discontinu ed, Routine [facility] foLIC acid 1 mg tablet 08-12 00:00: 00 09-12 04:59 :00 No [id number] 1mg Take 1 tablet by mouth in the morning for 30 days. [facility] oxazepam (SERAX) capsule 15 mg [...] Thu08/13/22 at 0600, Routine [Order 2 End] [facility] thiamine (VITAMIN B1) tablet 100 mg 08-11 16:15: 00 Yes 100mg 100 mg, Oral, DAILY, First dose on Thu08/11/22 at 1015, Until Discontinu ed, Routine [facility] enoxaparin (LOVENOX) injection 40 mg 08-10 23:00: 00 Yes 40mg 40 mg, Subcutaneo us, DAILY, First dose on Thu08/10/22 at 1700, Until Discontinu ed, Routine [facility] NaCl 0.9% (NS) IV infusion 1,000 mL 08-10 15:00: 00 Yes 1000mL at 125 mL/hr, IV Infusion, CONTINUOUS , Starting on Thu08/10/22 at 0900, Until Discontinu ed, Routine [facility] foLIC acid (FOLATE) 5 mg in NaCl 0.9% (NS) piggyback 08-10 15:00: 00 08-11 16:14 :47 No 5mg IV Piggyback, DAILY, First dose on Thu08/10/22 at 0900, Until Discontinu ed, 50 mL [facility] thiamine (VITAMIN B1) 100 mg in NaCl 0.9% (NS) piggyback 08-10 15:00: 00 08-10 16:08 :00 No 100mg IV Piggyback, DAILY, 1 dose, First dose on Thu08/10/22 at 0900, 50 mL [facility] LORazepam (ATIVAN) injection 2 mg 08-10 14:52: 57 Yes 2mg 2 mg, Slow IV Push, Q4HPRN, Starting on Thu08/10/22 at 0852, Until Discontinu ed, Routine, Seizures, Agitation, Anxiety [facility] Sliding Scale Insulin-Reg ular + Fsbg Testing 08-10 13:30: 00 Yes Subcutaneo us, AC+HS, First dose on Thu08/10/22 at 0730, Until Discontinu ed, Routine [facility] oxazepam (SERAX) capsule 15 mg 08-10 12:08: 05 Yes 15mg 15 mg, Oral, Q4HPRN, Starting on Thu08/10/22 at 0608, Until Discontinu ed, Routine, Only while awake for DBP equal to or greater than 100, HR equal to or greater than 100. [facility] dextrose 10% (D10W) bolus infusion 250 [...] blood glucose is < 80 mg/dL, repeat.
[facility] glucagon (GLUCAGEN DIAGNOSTIC KIT) injection 1 mg 08-10 12:03: 20 Yes 1mg 1 mg, Intramuscu lar, PRN, Starting on Thu08/10/22 at 0603, Until Discontinu ed, JACIEL, Blood Glucose < or = 70 mg/dL and patient is NPO, unable to swallow or has mental changes. [facility] ondansetron (ZOFRAN (PF)) injection 4 mg 08-10 12:02: 53 Yes 4mg 4 mg, Slow IV Push, Q6HPRN, Starting on Thu08/10/22 at 0602, Until Discontinu ed, Routine, Nausea and Vomiting (N/V) [facility] ibuprofen (MOTRIN IB) tablet 200 mg 08-10 12:02: 45 Yes 200mg 200 mg, Oral, Q6HPRN, Starting on Thu08/10/22 at 0602, Until Discontinu ed, Routine, Pain (scale 1-3) [facility] NaCl 0.9% (NS) bolus infusion 1,000 mL 08-10 10:15: 00 08-10 13:00 :00 No 1000mL at 999 mL/hr, 1,000 mL, IV Infusion, ONCE, 1 dose, On Thu08/10/22 at 0415, STAT [facility] LORazepam (ATIVAN) injection 0.5 mg 08-10 09:15: 00 08-10 09:19 :00 No .5mg 0.5 mg, Slow IV Push, ONCE, 1 dose, On Thu08/10/22 at 0315, STAT [facility] LORazepam (ATIVAN) injection 1 mg 08-10 08:00: 00 08-10 07:05 :00 No 1mg 1 mg, Slow IV Push, ONCE NOW, 1 dose, On 08/10/22 at 0200, STAT [facility] thiamine (VITAMIN B1) injection 100 mg 08-10 06:45: 00 08-10 06:52 :00 No 100mg 100 mg, Intravenou s, ONCE, 1 dose, On 08/10/22 at 0045[facility] 1 mg 08-10 05:15: 00 08-10 05:22 :00 No 1mg 1 mg, Slow IV Push, ONCE, 1 dose, On 08/09/22 at 2315, STAT [facility] ketorolac (TORADOL) injection 15 mg 2021-06 0-16 16:00: 00 04-06 14:50 :00 No 15mg 15 mg, Slow IV Push, ONCE, 1 dose, On 04/06/22 at 1100, [facility] ondansetron (ZOFRAN (PF)) injection 4 mg 2021-06-16 15:45: 00 04-06 14:50 :00 No 4mg 4 mg, Slow IV Push, ONCE, 1 dose, On 04/06/22 at 1045, [facility] oxazepam (SERAX) capsule 15 mg 12-31 06:28: 17 01-01 06:29 :00 No 15mg 15 mg, Oral, Q12H TAPER, 2 doses, First dose on Thu12/31/21 at 0130, Last dose on Thu12/31/21 at 1330, Routine [facility] multivitami n tablet 12-31 00:00: 00 Yes [id number] 1{tbl} Take 1 tablet by mouth in the morning. [facility] thiamine 100 mg tablet 12-31 00:00: 00 Yes [id number] 100mg Take 1 tablet by mouth in the morning. [facility] aspirin 81 mg chewable tablet 12-31 00:00: 00 Yes [id number] 81mg Take 1 tablet by mouth in the morning. [facility] foLIC acid 1 mg tablet 12-31 00:00: 00 01-31 04:59 :00 No [id number] 1mg Take 1 tablet by mouth in the morning for 30 days. [facility] metFORMIN 500 mg tablet 12-30 00:00: 00 Yes [id number] 500mg Take 1 tablet by mouth in the morning and 1 tablet in the evening. Take with meals. [facility] aspirin chewable tablet 81 mg 12-29 14:00: 00 Yes 81mg 81 mg, Oral, DAILY, First dose on Thu12/29/21 at 0900, Until Discontinu ed, Routine [facility] sulfur hexafluorid e microsphr (LUMASON) injection 5 mL 12-29 13:45: 00 12-29 13:45 :00 No [id number] 5mL 5 mL, Intravenou s, ONCE, 1 dose, On 12/29/21 at 0845, Routine
hospitality team member approving Restricted medication : STEFANIE GORMAN [facility] enoxaparin (LOVENOX) injection 40 mg 12-29 13:00: 00 Yes 40mg 40 mg, Subcutaneo us, Q24H, First dose on Thu12/29/21 at 0800, Until Discontinu ed, Routine [facility] Sliding Scale Insulin - Lispro (HumaLOG) + Fsbg Testing 12-29 13:00: 00 Yes Subcutaneo us, TID MEALS+HS, First dose on Thu12/29/21 at 0800, Until Discontinu ed, Routine [facility] diazePAM (VALIUM) injection 10 mg 12-29 05:30: 00 12-29 04:40 :00 No 10mg 10 mg, Intravenou s, ONCE, 1 dose, On 12/29/21 at 0030, Routine [facility] diazePAM (VALIUM) injection 10 mg 12-29 04:15: 00 12-29 03:17 :00 No 10mg 10 mg, Intravenou s, ONCE, 1 dose, On 12/28/21 at 2315, Routine [facility] diazePAM (VALIUM) injection 5 mg 12-29 03:45: 01 Yes 5mg 5 mg, Intravenou s, QIDPRN, Starting on 12/28/21 at 2245, Until Discontinu ed, Routine, Seizures, Agitation [facility] foLIC acid (FOLATE) tablet 1 mg 12-29 03:45: 00 Yes 1mg 1 mg, Oral, DAILY, First dose on 12/28/21 at 2245, Until Discontinu ed, Routine [facility] thiamine (VITAMIN B1) tablet 100 mg 12-29 03:45: 00 Yes 100mg 100 mg, Oral, DAILY, First dose (after last modificati on) on 12/28/21 at 2245, Until Discontinu ed, Routine [facility] glucagon (GLUCAGEN DIAGNOSTIC KIT) injection 1 mg 12-29 03:42: 19 Yes 1mg 1 mg, Intramuscu lar, PRN, Starting on 12/28/21 at 2242, Until Discontinu ed, JACIEL, Blood Glucose < or = 70 mg/dL and patient is unable to swallow or has mental changes. [facility] dextrose 10% (D10W) bolus infusion [...] blood glucose is < 80 mg/dL, repeat.
[facility] LORazepam (ATIVAN) injection 1 mg 12-29 03:30: 00 12-29 02:32 :00 No 1mg 1 mg, Intravenou s, ONCE, 1 dose, On 12/28/21 at 2230, Routine
Is the medication being used for status epilepticu s? No [facility] oxazepam (SERAX) capsule 15 mg 12-29 00:28: 20 Yes 15mg 15 mg, Oral, Q4HPRN, Starting on 12/28/21 at 1928, Until Discontinu ed, Routine, Only while awake for DBP equal to or greater than 100, HR equal to or greater than 100. [facility] ondansetron (ZOFRAN (PF)) injection 4 mg 12-29 00:23: 47 Yes 4mg 4 mg, Slow IV Push, Q6HPRN, Starting on 12/28/21 at 1923, Until Discontinu ed, Routine, Nausea and Vomiting (N/V) [facility] acetaminoph en (TYLENOL) tablet 650 mg 12-29 00:23: 37 Yes 650mg 650 mg, Oral, Q6HPRN, Starting on 12/28/21 at 1923, Until Discontinu ed, Routine, Pain (scale 1-3), Temp > 38.5 C [facility] chlordiazeP OXIDE (LIBRIUM) capsule 25 mg 12-28 23:15: 00 12-28 23:24 :00 No 25mg 25 mg, Oral, ONCE, 1 dose, On 12/28/21 at 1815, [facility] NaCl 0.9% (NS) bolus infusion 2,000 mL 12-28 22:45: 00 12-28 23:18 :00 No 2000mL at 999 mL/hr, 2,000 mL, IV Infusion, ONCE, 1 dose, On 12/28/21 at 1745, JACIEL [facility] LORazepam (ATIVAN) injection 1 mg 12-28 20:45: 00 12-28 20:49 :00 No 1mg 1 mg, Slow IV Push, ONCE, 1 dose, On 12/28/21 at 1545, STAT
Is the medication being used for status epilepticu s? No [facility] acetaminoph en (TYLENOL) 500 mg tablet 10-06 00:00: 00 Yes 500mg Take 1 Tab by mouth every 6 (six) hours as needed for Pain. [facility] Vital Signs Vital Name Observation Time Observation Value Comments S ource Systolic blood pressure 2023-12-13 05:16:00 125 mm[Hg] [facility] Diastolic blood pressure 2023-12-13 05:16:00 90 mm[Hg] [facility] Heart rate 2023-12-13 05:16:00 77 /min [facility] Body temperature 2023-12-13 05:16:00 36.06 [facility] Respiratory rate 2023-12-13 05:16:00 16 /min [facility] Oxygen saturation in Arterial blood by Pulse oximetry 2023-12-13 05:16:00 98 /min [facility] Body height 2023-12-13 01:35:00 157.5 cm [facility] Body weight 2023-12-13 01:35:00 65.772 kg [facility] BMI 2023-12-13 01:35:00 26.52 kg/m2 [facility] Systolic blood pressure 2023-11-05 21:00:00 106 mm[Hg] [facility] Diastolic blood pressure 2023-11-05 21:00:00 70 mm[Hg] [facility] Heart rate 2023-11-05 21:00:00 74 /min [facility] Body temperature 2023-11-05 21:00:00 36.5 [facility] Respiratory rate 2023-11-05 21:00:00 21 /min [facility] Oxygen saturation in Arterial blood by Pulse oximetry 2023-11-05 21:00:00 98 /min [facility] Body height 2023-11-05 19:59:00 160 cm [facility] Body weight 2023-11-05 19:59:00 63.504 kg [facility] BMI 2023-11-05 19:59:00 24.80 kg/m2 [facility] Systolic blood pressure 2022-11-11 20:31:31 116 mm[Hg] [facility] Diastolic blood pressure 2022-11-11 20:31:31 77 mm[Hg] [facility] Heart rate 2022-11-11 20:31:31 84 /min [facility] Respiratory rate 2022-11-11 20:31:31 12 /min [facility] Oxygen saturation in Arterial blood by Pulse oximetry 2022-11-11 20:31:31 90 /min [facility] Body temperature 2022-11-11 18:49:00 37.11 [facility] Body height 2022-11-11 18:49:00 160 cm [facility] Body weight 2022-11-11 18:49:00 68.04 kg [facility] BMI 2022-11-11 18:49:00 26.57 kg/m2 [facility] Body temperature 2022-08-11 14:00:00 36.5 [facility] Systolic blood pressure 2022-08-11 10:00:00 116 mm[Hg] [facility] Diastolic blood pressure 2022-08-11 10:00:00 71 mm[Hg] [facility] Heart rate 2022-08-11 10:00:00 70 /[facility] Respiratory rate 2022-08-11 10:00:00 16 /min [facility] Body weight 2022-08-11 10:00:00 65.499 kg [facility] [...] Heart rate 2022-04-06 16:00:00 87 /min [facility] Respiratory rate 2022-04-06 16:00:00 22 /min [facility] Oxygen saturation in Arterial blood by Pulse oximetry 2022-04-06 16:00:00 98 /min [facility] Body temperature 2022-04-06 14:41:00 37 [facility] Body height 2022-04-06 14:41:00 160 cm [facility] Body weight 2022-04-06 14:41:00 63.504 kg [facility] BMI 2022-04-06 14:41:00 24.80 kg/m2 [facility] Systolic blood pressure 2022-01-20 02:27:00 121 mm[Hg] [facility] Diastolic blood pressure 2022-01-20 02:27:00 75 mm[Hg] [facility] Heart rate 2022-01-20 02:27:00 79 /min [facility] Respiratory rate 2022-01-20 02:27:00 12 /min [facility] Oxygen saturation in Arterial blood by Pulse oximetry 2022-01-20 02:27:00 98 /min [facility] Body temperature 2022-01-19 22:19:00 36.44 [facility] Body weight 2022-01-19 22:19:00 60.328 kg [facility] BMI 2022-01-19 22:19:00 23.56 kg/m2 [facility] Systolic blood pressure 2021-12-30 20:52:00 134 mm[Hg] [facility] Diastolic blood pressure 2021-12-30 20:52:00 76 mm[Hg] [facility] Heart rate 2021-12-30 20:52:00 67 /min [facility] Body temperature 2021-12-30 20:26:00 36.67 [facility] Oxygen saturation in Arterial blood by Pulse oximetry 2021-12-30 20:26:00 99 /min [place] [facility] Respiratory rate 2021-12-30 16:21:00 18 /min [facility] Body weight 2021-12-30 08:27:00 60.464 kg [facility] BMI 2021-12-30 08:27:00 23.61 kg/m2 [facility] Body height 2021-12-29 01:29:00 160 cm [facility] Procedures Procedure Date / Time Performed Performing Clinician Source TROPONIN I 2023-12-13 03:32:00 Rafael Byrd [facility] XR CHEST 1 VW 2023-12-13 02:18:14 Rafael Byrd [facility] LIPASE 2023-12-13 02:07:00 Rafael Byrd [facility] TROPONIN I 2023-12-13 02:07:00 Rafael Byrd [facility] COMP. METABOLIC PANEL ([id number]) 2023-12-13 02:07:00 Rafael Byrd [facility] CBC WITH DIFF 2023-12-13 02:07:00 Rafael Byrd [facility] XR CHEST 1 VW 2023-11-05 20:09:00 Sulaiman Hawkins [facility] LIPASE 2023-11-05 20:01:00 Sulaiman Hawkins [facility] MAGNESIUM 2023-11-05 20:01:00 [facility] TROPONIN I 2023-11-05 20:01:00 [facility] COMP. METABOLIC PANEL ([id number]) 2023-11-05 20:01:00 Sulaiman Hawkins [facility] CBC WITH DIFF 2023-11-05 20:01:00 Sulaiman Hawkins [facility] N-TERMINAL PRO-BNP 2023-11-05 20:01:00 Sulaiman Hawkins [facility] MAGNESIUM 2022-11-11 19:05:[address] [facility] BASIC METABOLIC PANEL (NA, K, CL, CO2, GLUCOSE, BUN, CREATININE, CA) 2022-11-11 19:[facility]-11 19:05:[address] [facility] CBC WITH DIFF 2022-11-11 19:05:00 Hemant Klein [facility] POCT GLUCOSE (AUTOMATED) 2022-08-11 13:36:00 Arvind Prado [facility] PHOSPHORUS 2022-08-11 10:35:00 [facility] MAGNESIUM 2022-08-11 10:35:00 [facility] AMMONIA, PLASMA 2022-08-11 10:35:00 Jessica Prado [facility] COMP. METABOLIC PANEL ([id number]) 2022-08-11 10:35:00 Eve [facility] CBC WITH DIFF 2022-08-11 10:35:00 Oswald Murphy [facility] POCT GLUCOSE (AUTOMATED) 2022-08-11 02:15:00 Arvind Prado [facility] POCT GLUCOSE (AUTOMATED) 2022-08-10 23:10:00 Arvind Prado [facility] POCT GLUCOSE (AUTOMATED) 2022-08-10 18:20:00 Arvind Prado [facility] POCT GLUCOSE (AUTOMATED) 2022-08-10 14:11:00 Arvind Prado [facility] POCT GLUCOSE (AUTOMATED) 2022-08-10 10:59:00 Gopal Driscoll [facility] COVID-19 (ID NOW RAPID TESTING) 2022-08-10 07:17:00 Rayray Driscoll [facility] LAB ONLY COVID INTERPRETATION 2022-08-10 07:17:00 Rayray Driscoll [facility] HB ECG ROUTINE & RHYTHM STRIP 2022-08-10 06:03:48 Rayray Driscoll [facility] URINALYSIS 2022-08-10 05:46:00 [facility] URINE DRUG (IMMUNOASSAY) - COMPREHENSIVE DRUG SCREEN W/O REFLEX 2022-08-10 05:45:00 Rayray Driscoll [facility] CREATINE KINASE 2022-08-10 05:16:00 [facility]10 05:16:00 [facility] MAGNESIUM 2022-08-10 05:16:00 [facility] TROPONIN I 2022-08-10 05:16:00 Rayray Driscoll [facility] COMP. METABOLIC PANEL ([id number]) 2022-08-10 05:16:00 Rayray Driscoll [facility] ETHANOL 2022-08-10 05:16:00 Rayray Driscoll [facility] CBC WITH DIFF 2022-08-10 05:16:00 Rayray Driscoll [facility] N-TERMINAL PRO-BNP 2022-08-10 05:16:00 Rayray Driscoll [facility] CRITICAL CARE 2022-08-10 04:52:00 Rayray Driscoll [facility] XR CHEST 1 VW 2022-04-06 14:51:50 Diya Chowdhury [facility] LIPASE 2022-04-06 14:42:00 Diya Chowdhury [facility] TROPONIN I 2022-04-06 14:42:00 Diya Chowdhury [facility] COMP. METABOLIC PANEL ([id number]) 2022-04-06 14:42:00 Diya Chowdhury [facility] CBC WITH DIFF 2022-04-06 14:42:00 Diya Chowdhury [facility] PROTHROMBIN TIME / INR 2022-04-06 14:42:00 Diya Chowdhury [facility] ACTIVATED PARTIAL THRMPLAS NELDA 2022-04-06 14:42:00 Diya Chowdhury [facility] LACTIC ACID WHOLE BLOOD 2022-01-20 00:22:00 Leticia Baldwin [facility] URINE DRUG (IMMUNOASSAY) - COMPREHENSIVE DRUG SCREEN 2022-01-19 23:10:00 Leticia Baldwin [facility] URINALYSIS 2022-01-19 23:10:00 Leticia Baldwin [facility] TROPONIN I 2022-01-19 23:00:00 [facility] COMP. METABOLIC PANEL ([id number]) 2022-01-19 23:00:00 Leticia Baldwin [facility] LITHIUM 2022-01-19 23:00:00 Leticia Baldwin [facility] ETHANOL 2022-01-19 23:00:00 Leticia Baldwin [facility] CBC WITH DIFF 2022-01-19 23:00:00 Leticia Baldwin [facility] COVID-19 (ID NOW RAPID TESTING) 2022-01-19 23:00:00 Leticia Baldwin [facility] CT HEAD WO CONTRAST 2022-01-19 22:49:00 Leticia Baldwin [facility] XR CHEST 1 VW 2022-01-19 22:41:00 Leticia Baldwin [facility] POCT GLUCOSE (AUTOMATED) 2022-01-19 22:25:00 Leticia Baldwin [facility] POCT GLUCOSE (AUTOMATED) 2021-12-30 21:55:00 Arvind Prado [facility] POCT GLUCOSE (AUTOMATED) 2021-12-30 16:21:00 Arvind Prado [facility] POCT GLUCOSE (AUTOMATED) 2021-12-30 12:30:00 Arvind Prado [facility] HEPATIC FUNCTION PANEL ([id number]) (ALB,T.PRO,BILI T,BU/BC,ALT,AST,ALK PHOS) 2021-12-30 09:28:00 Maira Gaitan [facility] POCT GLUCOSE (AUTOMATED) 2021-12-30 02:11:00 Arvind Prado [facility] POCT GLUCOSE (AUTOMATED) 2021-12-29 21:41:00 Arvind Prado [facility] POCT GLUCOSE (AUTOMATED) 2021-12-29 16:37:00 Arvind Prado [facility] TRANSTHORACIC ECHO (TTE) COMPLETE W/ CONTRAST 2021-12-29 13:05:00 Jessica Prado [facility] POCT GLUCOSE (AUTOMATED) 2021-12-29 12:41:00 Arvind Prado [facility] TROPONIN I 2021-12-29 09:42:00 [facility] TROPONIN I 2021-12-29 04:55:00 [facility] HEAD WO CONTRAST 2021-12-28 21:18:22 Poppy Renteria [facility] AMMONIA, PLASMA 2021-12-28 21:00:00 Pia Renteria [facility] COVID-19 (ID NOW RAPID TESTING) 2021-12-28 20:42:00 Pia Renteria [facility] LAB ONLY COVID INTERPRETATION 2021-12-28 20:42:00 Pia [facility] URINE DRUG (IMMUNOASSAY) - COMPREHENSIVE DRUG SCREEN W/O REFLEX 2021-12-28 20:42:00 [facility]ia [facility] URINALYSIS 2021-12-28 20:40:00 [facility] N-TERMINAL PRO-BNP 2021-12-28 20:40:00 Corina [facility] TROPONIN I 2021-12-28 20:40:00 [facility] THYROID STIMULATING HORMONE 2021-12-28 20:40:00 Jessica [facility] COMP. METABOLIC PANEL (29753) 2021-12-28 20:40:00 Pia [facility] LIPID PANEL (90089)(TOTAL CHOLESTEROL, TRIGLYCERIDES, HDL) 2021-12-28 20:40:00 Demetrius [facility] ETHANOL 2021-12-28 20:40:00 Demetrius Langford [facility] CBC WITH DIFF 2021-12-28 20:40:00 Pia Renteria [facility] GLYCOSYLATED HEMOGLOBIN (A1C) 2021-12-28 20:40:00 Jessica [facility] PROTHROMBIN TIME / INR 2021-12-28 20:40:00 Lesly [facility] XR CHEST 1 VW 2021-12-28 20:16:00 Pia Renteria [facility] HB ECG ROUTINE & RHYTHM STRIP 2021-12-28 20:04:59 Pia [facility] Encounters Start Date/Time End Date/Time Encounter Type Admission Type Attending [facility] Care Department Encounter ID Source 2021-09-17 16:45:00 Inpatient [facility] [id number] [facility] 2020-06-06 16:07:00 Inpatient [facility] [id number] [facility] 2020-06-06 06:20:00 Inpatient [facility] [id number] [facility] 2020-06-05 19:35:00 Inpatient [facility] [id number] [facility] 2020-05-23 19:53:00 Inpatient [facility] [id number] [facility] 2020-05-23 19:53:00 Inpatient [facility] [id number] 39 [facility] 2023-12-12 20:44:00 2023-12-13 00:22:00 Emergency Rafael Byrd [facility] 1.2.840.114 350.1.13.10 4.2.7.2.686 [id number] [facility] 2023-11-05 14:54:00 2023-11-05 16:27:00 Emergency Sulaiman Hawkins [facility] 1.2.840.114 350.1.13.10 4.2.7.2.686 [id number] [facility] 2022-11-11 13:50:00 2022-11-11 16:07:00 Emergency X HEMANT KLEIN [facility] ERT [id number] [facility] 2022-11-11 13:50:00 2022-11-11 16:07:00 Emergency Hemant Klein [facility] 1.2.840.114 350.1.13.10 4.2.7.2.686 [id number] [facility] 2022-10-14 20:59:00 2022-10-14 20:59:00 Emergency [facility] [id number] [facility] 2022-10-14 20:59:00 2022-10-14 20:59:00 Emergency Emergency Pan iPnto [facility] [id number] 66 [facility] 2022-08-09 22:59:00 2022-08-11 13:02:00 Outpatient X JESSICA PRADO [facility] MARGO [id number] [facility] 2022-08-09 22:59:00 2022-08-11 13:02:00 Emergency DriscollMukundRayrayJessica Avilez [facility] 1.2.840.114 350.1.13.10 4.2.7.2.686 [id number] [facility] 2022-04-06 09:38:00 2022-04-06 11:42:00 Emergency X DIYA CHOWDHURY [facility] ERT [id number] [facility] 2022-04-06 09:38:00 2022-04-06 11:42:00 Emergency EnrikegisselleDiya domingo [facility] 1.2.840.114 350.1.13.10 4.2.7.2.686 [id number] [facility] 2022-03-07 12:38:00 2022-03-07 12:38:00 Emergency [facility] [id number] [facility] 2022-03-07 12:38:00 2022-03-07 12:38:00 Emergency Emergency Fidel Cuellar [facility] [id number] 74 [facility] 2022-01-19 17:18:00 2022-01-19 22:00:00 Emergency X DIRK YARBROUGH [facility] ERT [id number] [facility] 2022-01-19 17:18:00 2022-01-19 22:00:00 Emergency NicolasaLeticia vega Julio C [facility] 1.2.840.114 350.1.13.10 4.2.7.2.686 [id number] [facility] 2021-12-31 00:00:00 2021-12-31 00:00:00 Transition of Care Bandar Faye SHEARMarlon MASSIEL NAVARRO 1.2.840.114 350.1.13.10 4.2.7.2.686 [id number] [facility] 2021-12-28 14:53:00 2021-12-30 17:42:00 Inpatient X JESSICA PRADO [facility] MAR[facility] [id number] [facility] 2021-12-28 14:53:00 2021-12-30 17:42:00 Hospital Encounter Pia Renteria Jelani [facility] 1.2.840.114 350.1.13.10 4.2.7.2.686 [id number] [facility] 2021-09-17 16:47:00 2021-09-17 16:47:00 Emergency [facility] [id number] [facility] 2020-06-06 16:07:00 2020-06-06 16:07:00 Emergency [facility] [id number] [facility] Results Test Description Test Time Test Comments Results Result Co mments Source [facility] [id number] 02:57:27* Test Item Value Reference Range Interpretation Comme nts TROPONIN I (test code = 6124078535) 0.003 ng/mL <=0.034 JUAN ALBERTO (test code [...] of biotin. Lab Interpretation (test code = 29113-5) Normal [facility]. METABOLIC PANEL (74869)2023-12-13 02:46:25* Test Item Value Reference Range Interpretation Comme nts NA (test code = 7815602570) 144 mmol/L 135-145 K (test code = 7158037830) 3.9 mmol/L 3.5-5.0 CL (test code = 7147458554) 110 mmol/L 98-108 H CO2 TOTAL (test code = 7550117724) 20 mmol/L 23-31 L AGAP (test code = 3192777047) 14 2-16 BUN (test code = 4975366248) 13 mg/dL 7-23 GLUCOSE (test code = 3883960891) 163 mg/dL 70-110 H CREATININE (test code = 2160-0) 0.63 mg/dL 0.60-1.25 TOTAL BILI (test code = 0381787789) 0.3 mg/dL 0.1-1.1 CALCIUM (test code = 5102871556) 9.0 mg/dL 8.6-10.6 T PROTEIN (test code = 2867582046) 7.2 g/dL 6.3-8.2 ALBUMIN (test code = 7104984324) 4.1 g/dL 3.5-5.0 ALK PHOS (test code = 3591295491) 129 U/L 34-122 H ALTv (test code = 1742-6) 15 U/L 5-50 AST(SGOT) (test code = 4802519022) 34 U/L 13-40 eGFR (test code = 97872-9) 113.7 mL/min/1.73m2 CKD-EPI eGFR (2020). Assuming creatinine has been stable day-to-day for at least three months, the eGFR indicates Category G1 (>= 90 mL/min/1.73 m2) Lab Interpretation (test code = 71234-1) [facility] [id number] 02:45:25* Test Item Value Reference Range Interpretation Comme nts LIPASE (test code = 7152303253) 47 U/L 0-220 Lab Interpretation (test cod e = 92619-3) Normal [facility] 1 [id number] 02:40:35History: chest pain . Exam: XR CHEST 1 VW Date: 12/12/2023 9:15 PM Ordering provider: RAFAEL BYRD Technical quality: Adequate Comparison: 11/05/2023. Findings: Frontal view of the chest is obtained. The cardiac silhouette is normal in size. No evidence of infiltrate,pleural effusion, CHF, or pneumothorax.[facility] WITH [id number] 02:33:48* Test Item Value Reference Range Interpretation [...] 33.2 g/dL 31.2-35.0 RDW-SD (test code = 30966-8) 54.4 fL 38.5-51.6 H RDW-CV (test code = 788-0) 15.9 % 12.1-15.4 H PLT (test code = 777-3) 318 150-328 MPV (test code = 54146-3) 8.5 fL 9.8-13.0 L NRBC/100 WBC (test code = 6776927717) 0.0 0.0-10.0 NRBC x10^3 (test code = 9700142716) See_Comment [Automated messa ge] The system which generated this result transmitted reference range: 10*3/?L. The reference range was not used to interpret this result as normal/abnormal. GRAN MAT (NEUT) % (test code = 770-8) 50.1 % IMM GRAN % (test code = 6289808750) 0.40 % LYMPH % (test code = 736-9) 37.6 % MONO % (test code = 5905-5) 6.8 % EOS % (test code = 713-8) 4.1 % BASO % (test code = 706-2) 1.0 % GRAN MAT x10^3(ANC) (test code = 9829379153) 3.66 10*3/uL 1.99-6.95 IMM GRAN x10^3 (test code = 2469234674) 0.03 10*3/uL 0.00-0.06 LYMPH x10^3 (test code = 731-0) 2.75 10*3/uL 1.09-3.23 MONO x10^3 (test code = 742-7) 0.50 10*3/uL 0.36-1.02 EOS x10^3 (test code = 711-2) 0.30 10*3/uL 0.06-0.53 BASO x10^3 (test code = 704-7) 0.07 10*3/uL 0.01-0.09 Lab Interpretation (test code = 64350-4) [facility]normal [facility] 1 [id number] 20:15:30HISTORY: Chest pain. TECHNIQUE: Portable AP view of the chest is obtained. Comparison is beingmade with 04/06/2022 study. FINDINGS: No acute pneumonia. No pneumothorax or pleural effusion orpulmonarycongestion detected. Cardiac size is within normal limits.Prominent osteophytes are seen along right left vertebral margins at middleand lower thoracic spines. 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0 mg/dL 8.6-10.6 eGFR (test code = 1050034151) 114.6 mL/min/1.73m2 JUAN ALBERTO (test code = [...] imaging tests). Lab Interpretation (test code = 60013-6) Abnormal [facility]20[facility]-23 19:41:47* Test Item Value Reference Range Interpretation Comme nts MAGNESIUM (test code = 9000512799) 1.8 mg/dL 1.7-2.4 Lab Interpretation (test cod e = 64122-3) Normal [facility] HospitalCB WITH [id number] 19:25:26* Test Item Value Reference Range Interpretation Comme nts WBC (test code = 6690-2) 6.82 See_Comment [Automated [employer]] The system which generated this result transmitted reference range: 4.20 - 10.70 10*3/?L. The reference range was not used to interpret this result as normal/abnormal. RBC (test code = 789-8) 4.98 See_Comment [Automated [employer]] The system which generated this result transmitted [...] 33.9 g/dL 31.2-35.0 RDW-SD (test code = 45715-3) 46.0 fL 38.5-51.6 RDW-CV (test code = 788-0) 13.5 % 12.1-15.4 PLT (test code = 777-3) 237 See_Comment [Automated [employer]] The system which generated this result transmitted reference range: 150 - 328 10*3/?L. The reference range was not used to interpret this result as normal/abnormal. MPV (test code = 55118-7) 8.9 fL 9.8-13.0 L NRBC/100 WBC (test code = 7917758205) 0.0 See_Comment [Automated me ssage] The system which generated this result transmitted reference range: 0.0 - 10.0 /100 WBCs. The reference range was not used to interpret this result as normal/abnormal. NRBC x10^3 (test code = 2551520631) See_Comment [Automated messa ge] The system which generated this result transmitted reference range: 10*3/?L. The reference range was not used to interpret this result as normal/abnormal. GRAN MAT (NEUT) % (test code = 770-8) 71.2 % IMM GRAN % (test code = 0650342126) 0.30 % LYMPH % (test code = 736-9) 18.2 % MONO % (test code = 5905-5) 8.4 % EOS % (test code = 713-8) 1.0 % BASO % (test code = 706-2) 0.9 % GRAN MAT x10^3(ANC) (test code = 3483977708) 4.86 10*3/uL 1.99-6.95 IMM GRAN x10^3 (test code = 1861237462) 0.00-0.06 LYMPH x10^3 (test code = 731-0) 1.24 10*3/uL 1.09-3.23 MONO x10^3 (test code = 742-7) 0.57 10*3/uL 0.36-1.02 EOS x10^3 (test code = 711-2) 0.07 10*3/uL 0.06-0.53 BASO x10^3 (test code = 704-7) 0.06 10*3/uL 0.01-0.09 Lab Interpretation (test code = 03351-0) Abnormal [facility], Urinalysis Rflx Cult/Pgedv8977-82-28 22:20:00* Test Item Value Reference Range Interpretation Comme nts Color,Urine (test code = UCOL) Yellow Yellow Clarity,Urine (test code = UCLAR) Clear Clear Ph, Urine (test code = UPH) 7.0 5.0-9.0 N Specific Stanley,Urine (test code = USG) 1.020 1.005-1.030 N [...] code = ULEU) Negative mg/dL Negative Drug Screen,[id number] 22:20:00* Test Item Value Reference Range Interpretation [...] UPROP) Negative Negative Complete Blood Count Auto [id number] 21:21:00* Test Item Value Reference Range Interpretation [...] code = NRBCP) 0 % Comprehensive Metabolic [id number] 21:21:00* Test Item Value Reference Range Interpretation [...] a race coefficient. Additional information canbe found at:[id number]_ied_ egfr_summary_flyer 5.pdf ([email or web address]) [Automated message] The system [...] = ALP) 134 U/L 46-116 H Ethanol [id number] 21:21:00* Test Item Value Reference Range Interpretation Comme nts Ethanol (test code = ETOH) < 3 mg/dL The pharmacologi yudy response to blood alcohol levels mayvary from individual to individual. The fatal concentrationhas been reported to be >400mg/dL. POCT GLUCOSE (AUTOMATED)2022-08-11 13:40:35* Test Item Value Reference Range Interpretation Comme nts POCT GLU (test code = 8031259873) 121 mg/dL 70-110 H Lab Interpretation (test cod e = 96875-4) Abnormal [facility] GLUCOSE (AUTOMATED)2022-08-11 02:18:58* Test Item Value Reference Range Interpretation Comme nts POCT GLU (test code = 0201264492) 183 mg/dL 70-110 H Lab Interpretation (test cod e = 96094-3) Abnormal [facility] GLUCOSE (AUTOMATED)2022-08-10 23:16:11* Test Item Value Reference Range Interpretation Comme nts POCT GLU (test code = 6792706406) 176 mg/dL 70-110 H Lab Interpretation (test cod e = 96555-2) Abnormal [facility] GLUCOSE (AUTOMATED)2022-08-10 18:22:51* Test Item Value Reference Range Interpretation Comme nts POCT GLU (test code = 5166195772) 165 mg/dL 70-110 H Lab Interpretation (test cod e = 60035-1) Abnormal [facility] GLUCOSE (AUTOMATED)2022-08-10 14:18:05* Test Item Value Reference Range Interpretation Comme nts POCT GLU (test code = 3367544555) 138 mg/dL 70-110 H Lab Interpretation (test cod e = 36666-9) Abnormal [facility] GLUCOSE (AUTOMATED)2022-08-10 11:01:21* Test Item Value Reference Range Interpretation Comme nts POCT GLU (test code = 5117459751) 143 mg/dL 70-110 H Lab Interpretation (test cod e = 28097-9) Abnormal [facility] HospitalTROPONIN [id number] 06:51:18* Test Item Value Reference Range Interpretation Comme nts TROPONIN I (test code = 5823218842) 0.008 ng/mL <=0.034 JUAN ALBERTO (test code = JAUN ALBERTO) Reference (Normal) Range (defined by the [...] of biotin. Lab Interpretation (test code = 35833-2) Normal [facility] HospitalN-TERMINAL ANC-[id number] 06:47:37* Test Item Value Reference Range Interpretation Comme nts NT-proBNP (test code = 7727911913) 37 pg/mL <=125 JUAN ALBERTO (test code = JUAN ALBERTO) Biotin has been reported to cause a negative bias, interpret results relative to patient's use of biotin. 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 METABOLIC PANEL (57053)2022-08-10 06:19:15* Test Item Value Reference Range Interpretation Comme nts NA (test code = 7688434246) 135 mmol/L 135-145 K (test code = 0018978800) 4.3 mmol/L 3.5-5.0 CL (test code = 8005443327) 98 mmol/L 98-108 CO2 TOTAL (test code = 6696056937) 30 mmol/L 23-31 AGAP (test code = 2071302391) 7 2-16 BUN (test code = 9761232884) 11 mg/dL 7-23 GLUCOSE (test code = 0668168594) 153 mg/dL 70-110 H CREATININE (test code = 4431317988) 0.77 mg/dL 0.60-1.25 TOTAL BILI (test code = 8773700321) 0.9 mg/dL 0.1-1.1 CALCIUM (test code = 7807572163) 10.0 mg/dL 8.6-10.6 T PROTEIN (test code = 6313962115) 7.7 g/dL 6.3-8.2 ALBUMIN (test code = 7489922188) 4.6 g/dL 3.5-5.0 ALK PHOS (test code = 6931348810) 92 U/L 34-122 ALTv (test code = 1742-6) 35 U/L 5-50 AST(SGOT) (test code = 3539435214) 42 U/L 13-40 H eGFR (test code = 5709276418) 106.1 mL/min/1.73m2 JUAN ALBERTO (test code = [...] imaging tests). Lab Interpretation (test code = 06671-1) Abnormal [facility]2023-02-19 06:19:15* Test Item Value Reference Range Interpretation Comme nts MAGNESIUM (test code = 5188012605) 2.2 mg/dL 1.7-2.4 Lab Interpretation (test cod e = 16005-1) Normal [facility]2023-02-19 06:18:55* Test Item Value Reference Range Interpretation Comme nts LIPASE (test code = 6947367455) 18 U/L 0-220 Lab Interpretation (test cod e = 81298-1) Normal [facility] HospitalCREATINE [id number] 06:18:55* Test Item Value Reference Range Interpretation Comme nts CK (test code = 8853501262) 174 U/L 33-194 Lab Interpretation (test cod e = 91867-7) Normal [facility] WITH [id number] 06:02:35* Test Item Value Reference Range Interpretation [...] 32.4 g/dL 31.2-35.0 RDW-SD (test code = 76031-1) 50.2 fL 38.5-51.6 RDW-CV (test code = 788-0) 14.3 % 12.1-15.4 PLT (test code = 777-3) 241 See_Comment [Automated messa ge] The system which generated this result transmitted reference range: 150 - 328 10*3/?L. The reference range was not used to interpret this result as normal/abnormal. MPV (test code = 27934-7) 8.6 fL 9.8-13.0 L NRBC/100 WBC (test code = 7884737551) 0.0 See_Comment [Automated me ssage] The system which generated this result transmitted reference range: 0.0 - 10.0 /100 WBCs. The reference range was not used to interpret this result as normal/abnormal. NRBC x10^3 (test code = 3981812041) See_Comment [Automated messa ge] The system which generated this result transmitted reference range: 10*3/?L. The reference range was not used to interpret this result as normal/abnormal. GRAN MAT (NEUT) % (test code = 770-8) 63.9 % IMM GRAN % (test code = 0359176117) 0.50 % LYMPH % (test code = 736-9) 17.6 % MONO % (test code = 5905-5) 16.5 % EOS % (test code = 713-8) 0.7 % BASO % (test code = 706-2) 0.8 % GRAN MAT x10^3(ANC) (test code = 5060859738) 4.79 10*3/uL 1.99-6.95 IMM GRAN x10^3 (test code = 7015066923) 0.04 10*3/uL 0.00-0.06 LYMPH x10^3 (test code = 731-0) 1.32 10*3/uL 1.09-3.23 MONO x10^3 (test code = 742-7) 1.24 10*3/uL 0.36-1.02 H EOS x10^3 (test code = 711-2) 0.05 10*3/uL 0.06-0.53 L BASO x10^3 (test code = 704-7) 0.06 10*3/uL 0.01-0.09 Lab Interpretation (test code = 91993-8) [facility] [id number] 15:15:32* Test Item Value Reference Range Interpretation Comments TROPONIN I (test code = 3892108763) 0.007 ng/mL See_Comment [Automated message] The system [...] of biotin. Lab Interpretation (test code = 16891-8) Normal [facility] HospitalaPTT2022-10-16 15:08:29* Test Item Value Reference Range Interpretation Comme [facility] APTT Patient (test [...] 30 seconds. Lab Interpretation (test code = 00620-5) Normal [facility] HospitalPROTHROMBIN TIME / [id number] 15:06:28* Test Item Value Reference Range Interpretation Comme [facility] PROTIME PATIENT (test [...] the indications. Lab Interpretation (test code = 86412-9) Normal [facility] HospitalCOMP. METABOLIC PANEL (22876)2022-04-06 15:03:31* Test Item Value Reference Range Interpretation Comme [facility] NA (test code = 1447314899) 136 mmol/L 135-145 K (test code = 8976561854) 5.0 mmol/L 3.5-5 CL (test code = 4603099608) 104 mmol/L 98-108 CO2 TOTAL (test code = 0857425964) 21 mmol/L 23-31 L AGAP (test code = 5328547273) 2-16 BUN (test code = 1347974040) 11 mg/dL 7-23 GLUCOSE (test code = 4537185452) 162 mg/dL 70-110 H CREATININE (test code = 0866085546) 0.52 mg/dL 0.6-1.25 L TOTAL BILI (test code = 0092600714) 1.0 mg/dL 0.1-1.1 CALCIUM (test code = 4600625176) 9.3 mg/dL 8.6-10.6 T PROTEIN (test code = 0131512820) 7.4 g/dL 6.3-8.2 ALBUMIN (test code = 7546881956) 4.4 g/dL 3.5-5 ALK PHOS (test code = 8880988625) 134 U/L 34-122 H ALTv (test code = 1742-6) 17 U/L 5-50 AST(SGOT) (test code = 5429104365) 38 U/L 13-40 eGFR (test code = 9522733523) mL/min/1.73m2 JUAN ALBERTO (test code = JUAN [...] imaging tests). Lab Interpretation (test code = 26667-4) Abnormal [facility] HospitalLIP[facility], [id number] 15:03:31* Test Item Value Reference Range Interpretation Comme nts LIPASE (test code = 0243106112) 29 U/L 0-220 Lab Interpretation (test cod e = 64287-4) Normal [facility]CBC WITH [id number] 14:51:49* Test Item Value Reference Range Interpretation Comme nts WBC (test code = 6690-2) See_Comment [Automated [employer]] The system which generated this result transmitted reference range: 4.20 - 10.70 10*3/?L. The reference range was not used to interpret this result as normal/abnormal. RBC (test code = 789-8) See_Comment [Automated [employer] ge] The system which generated this result [...] 34.0 g/dL 31.2-35 RDW-SD (test code = 41200-4) 45.9 fL 38.5-51.6 RDW-CV (test code = 788-0) 13.3 % 12.1-15.4 PLT (test code = 777-3) See_Comment [Automated [employer]] The system which generated this result transmitted reference range: 150 - 328 10*3/?L. The reference range was not used to interpret this result as normal/abnormal. MPV (test code = 27871-9) 8.4 fL 9.8-13 L NRBC/100 WBC (test code = 0852330766) See_Comment [Automated me ssage] The system which generated this result transmitted reference range: 0.0 - 10.0 /100 WBCs. The reference range was not used to interpret this result as normal/abnormal. NRBC x10^3 (test code = 9785516367) See_Comment [Automated messa ge] The system which generated this result transmitted reference range: 10*3/?L. The reference range was not used to interpret this result as normal/abnormal. GRAN MAT (NEUT) % (test code = 770-8) 63.0 % IMM GRAN % (test code = 0689855340) 0.50 % LYMPH % (test code = 736-9) 25.2 % MONO % (test code = 5905-5) 9.8 % EOS % (test code = 713-8) 0.3 % BASO % (test code = 706-2) 1.2 % GRAN MAT x10^3(ANC) (test code = 8012557210) 3.73 10*3/uL 1.99-6.95 IMM GRAN x10^3 (test code = 9592815363) 0.03 10*3/uL 0-0.06 LYMPH x10^3 (test code = 731-0) 1.49 10*3/uL 1.09-3.23 MONO x10^3 (test code = 742-7) 0.58 10*3/uL 0.36-1.02 EOS x10^3 (test code = 711-2) 0.06-0.53 L BASO x10^3 (test code = 704-7) 0.07 10*3/uL 0.01-0.09 Lab Interpretation (test code = 18523-3) Abnormal [facility], Urinalysis Rflx Cult/Uadyc4174-94-22 13:53:00* Test Item Value Reference Range Interpretation Comme nts Color,Urine (test code = UCOL) Yellow Yellow Clarity,Urine (test code = UCLAR) Cloudy Clear A Ph, Urine (test code = UPH) 7.5 5.0-9.0 N Specific Stanley,Urine (test code = USG) 1.025 1.005-1.030 N [...] = ULEU) Negative mg/dL Negative UF REFLEXDrug Screen,Tasrp5309-69-23 13:53:00* Test Item Value Reference Range Interpretation [...] UPROP) Negative Negative Complete Blood Count Auto Vzwp5116-48-66 12:58:00* Test Item Value Reference Range Interpretation [...] = NRBCP) 0 % Coronavirus PCR, COVID19 Egtst1568-12-31 12:58:00* Test Item Value Reference Range Interpretation Comme nts Coronavirus PCR, COVID19 Rapid (test code = SARSCOV2) Coronavirus PCR, COVID19 Rapid (test code = BXIVQXQ16.1) Reference Range: Negative SARS-CoV-2 PCR Result: (test code = SARS-CoV-2 PCR Result:) Negative by RT-PCR COVID-19 Status: AsymptomaticComprehensive Metabolic [id number] 12:58:00* Test Item Value Reference Range Interpretation [...] = ALP) 144 U/L 46-116 H Ethanol [id number] 12:58:00* Test Item Value Reference Range Interpretation Comme nts Ethanol (test code = ETOH) < 3 mg/dL The pharmacologi yudy response to blood alcohol levels mayvary from individual to individual. The fatal concentrationhas been reported to be >400mg/dL. [id number] 01:47:56* Test Item Value Reference Range Interpretation Comme nts [place] (test code = 5652328282) 0.7 mmol/L 0.6-1.2 JUAN ALBERTO (test code = JUAN ALBERTO) Toxic Range: ? Greater than 1.2 mmol/L Lab Interpretation (test code = 38747-7) [id number]:53* Test Item Value Reference Range Interpretation Comments TROPONIN I (test code = 2416818602) 0.002 ng/mL See_Comment [Automated message] The system [...] of biotin. 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 METABOLIC PANEL (42864)2022-01-20 00:16:16* Test Item Value Reference Range Interpretation Comme nts NA (test code = 9996612022) 137 mmol/L 135-145 K (test code = 7407635324) 4.5 mmol/L 3.5-5 CL (test code = 0576227184) 103 mmol/L 98-108 CO2 TOTAL (test code = 9739330167) 26 mmol/L 23-31 AGAP (test code = 7190834451) 2-16 BUN (test code = 4734254031) 10 mg/dL 7-23 GLUCOSE (test code = 6773175329) 121 mg/dL 70-110 H CREATININE (test code = 4124647413) 0.65 mg/dL 0.6-1.25 TOTAL BILI (test code = 9923587130) 0.8 mg/dL 0.1-1.1 CALCIUM (test code = 2211407098) 11.4 mg/dL 8.6-10.6 H T PROTEIN (test code = 1768797896) 7.2 g/dL 6.3-8.2 ALBUMIN (test code = 0441193049) 4.6 g/dL 3.5-5 ALK PHOS (test code = 7151143803) 112 U/L 34-122 ALTv (test code = 1742-6) 19 U/L 5-50 AST(SGOT) (test code = 1634262513) 26 U/L 13-40 eGFR (test code = 5300149593) mL/min/1.73m2 JUAN ALBERTO (test code = JUAN [...] imaging tests). Lab Interpretation (test code = 76664-9) Abnormal [facility] WITH [id number] 23:43:54* Test Item Value Reference Range Interpretation Comme nts WBC (test code = 6690-2) See_Comment [Automated [employer]] The system which generated this result transmitted reference range: 4.20 - 10.70 10*3/?L. The reference range was not used to interpret this result as normal/abnormal. RBC (test code = 789-8) See_Comment [Automated [employer]] The system which generated this result [...] 34.4 g/dL 31.2-35 RDW-SD (test code = 01579-5) 44.0 fL 38.5-51.6 RDW-CV (test code = 788-0) 12.6 % 12.1-15.4 PLT (test code = 777-3) See_Comment [Automated [employer] ge] The system which generated this result transmitted reference range: 150 - 328 10*3/?L. The reference range was not used to interpret this result as normal/abnormal. MPV (test code = 38766-6) 9.1 fL 9.8-13 L NRBC/100 WBC (test code = 2959563335) See_Comment [Automated [employer] ssage] The system which generated this result transmitted reference range: 0.0 - 10.0 /100 WBCs. The reference range was not used to interpret this result as normal/abnormal. NRBC x10^3 (test code = 1581089426) See_Comment [Automated [employer]] The system which generated this result transmitted reference range: 10*3/?L. The reference range was not used to interpret this result as normal/abnormal. GRAN MAT (NEUT) % (test code = 770-8) 69.8 % IMM GRAN % (test code = 7067630397) 0.40 % LYMPH % (test code = 736-9) 18.0 % MONO % (test code = 5905-5) 10.9 % EOS % (test code = 713-8) 0.1 % BASO % (test code = 706-2) 0.8 % GRAN MAT x10^3(ANC) (test code = 2974966735) 5.58 10*3/uL 1.99-6.95 IMM GRAN x10^3 (test code = 7507527265) 0.03 10*3/uL 0-0.06 LYMPH x10^3 (test code = 731-0) 1.44 10*3/uL 1.09-3.23 MONO x10^3 (test code = 742-7) 0.87 10*3/uL 0.36-1.02 EOS x10^3 (test code = 711-2) 0.06-0.53 L BASO x10^3 (test code = 704-7) 0.06 10*3/uL 0.01-0.09 Lab Interpretation (test code = 79249-2) Abnormal [facility] GLUCOSE (AUTOMATED)2022-01-19 22:27:41* Test Item Value Reference Range Interpretation Comme nts POCT GLU (test code = 8966540085) 123 mg/dL 70-110 H Lab Interpretation (test cod e = 61239-7) Abnormal [facility] GLUCOSE (AUTOMATED)2021-12-30 22:08:16* Test Item Value Reference Range Interpretation Comme nts POCT GLU (test code = 0934098771) 167 mg/dL 70-110 H Lab Interpretation (test cod e = 77436-6) Abnormal [facility] GLUCOSE (AUTOMATED)2021-12-30 16:50:40* Test Item Value Reference Range Interpretation Comme nts POCT GLU (test code = 3745753184) 154 mg/dL 70-110 H Lab Interpretation (test cod e = 83689-6) Abnormal [facility] GLUCOSE (AUTOMATED)2021-12-30 12:38:43* Test Item Value Reference Range Interpretation Comme nts POCT GLU (test code = 8508771136) 164 mg/dL 70-110 H Lab Interpretation (test cod e = 20741-3) Abnormal [facility] GLUCOSE (AUTOMATED)2021-12-30 02:14:58* Test Item Value Reference Range Interpretation Comme nts POCT GLU (test code = 9562141596) 220 mg/dL 70-110 H Lab Interpretation (test cod e = 55761-1) Abnormal [facility] GLUCOSE (AUTOMATED)2021-12-29 21:50:02* Test Item Value Reference Range Interpretation Comme nts POCT GLU (test code = 0275540685) 191 mg/dL 70-110 H Lab Interpretation (test cod e = 87758-6) Abnormal [facility] GLUCOSE (AUTOMATED)2021-12-29 20:15:01* Test Item Value Reference Range Interpretation Comme nts POCT GLU (test code = 9228186640) 163 mg/dL 70-110 H Lab Interpretation (test cod e = 49043-3) Abnormal [facility]2021-12-29 19:12:22* Test Item Value Reference Range Interpretation Comme nts Height (test code = 2369291489) in Weight (test code = 1172541840) lbs Systolic BP (test code = 5649837518) mmHg Diastolic BP (test code = 7003063672) mmHg Heart Rate (test code = 4820752536) bpm BSA (test code = 6170142915) 1.62 m2 Ao root annulus (test code = 7215114191) 2.45 cm Ao root diam (test code = 4953885007) 2.45 cm Aortic root (test code = 0259886754) 2.45 cm ACS (test code = 7955002711) 1.66 cm LA size (test code = 1598958746) 3.2 cm LVOT diameter (test code = 2668998581) 1.95 cm LVIDD (test code = 6838680363) 3.60 cm IVS (test code = 2551337972) 0.94 cm Interventricular Septum Diastolic Thickness by 2D (test code = 6271818) 0.94 cm LVPWD (test code = 6587290572) 0.80 cm PW (test code = 8669416274) 0.80 cm 0.6-1.1 EF(Teich) (test code = 5983141919) 52.80 % LVIDS (test code = 8408689871) 2.60 cm FS (test code = 6431113027) 27 % EF - 2D (test code = 32436706) 52.80 % LAV(MOD-sp4) (test code = 3020546565) 16.80 mL MV Peak E Jovany (test code = 6503353854) 46.1 cm/s E wave decelartion time (test code = 0694053675) 0.31 s MV Peak A Jovany (test code = 5653763881) 58.1 cm/s E/A ratio (test code = 1857475063) ratio MV E/e' septal (test code = 2502630355) 5.7 cm/s Tapse (test code = 3505493652) 1.60 cm LVOT stroke volume (test code = 6145186546) 52.10 cm3 LVOT peak jovany (test code = 8612642744) 110.6 cm/s LVOT mn grad (test code = 2540023675) mmHg AV LVOT peak gradient (test code = 8639213854) mmHg LVOT peak VTI (test code = 1093538194) 17.4 cm LV V1 mean (test code = 7645948047) 66.10 cm/s Aortic valve mean velocity (test code = 2977991120) 73.0 cm/s Ao peak jovany (test code = 3848293310) 124.6 cm/s Ao VTI (test code = 7058764579) 18.6 cm AV area by cont VTI (test code = 7809162587) 2.8 cm2 AV area peak jovany (test code = 8783951644) 2.7 cm2 Ao max PG (test code = 3952813217) 6.20 mm[Hg] AV peak gradient (test code = 8579520928) mmHg AV valve area (test code = 8439386422) 2.80 cm2 AV mean gradient (test code = 0678787338) mmHg Radiology Study observation (narrative) (test code = 74848-9) JUAN ALBERTO (test code = JUAN ALBERTO) [...] mL of Lumason ultrasound enhancing agent used. [facility]2021-12-29 12:50:31* Test Item Value Reference Range Interpretation Comme nts POCT GLU (test code = 9646341501) 141 mg/dL 70-110 H Lab Interpretation (test cod e = 43095-3) Abnormal [facility]rop[facility] [id number] 10:38:31* Test Item Value Reference Range Interpretation Comments TROPONIN I (test code = 0417865497) 0.003 ng/mL See_Comment [Automated message] The system [...] of biotin. Lab Interpretation (test code = 22058-1) Normal [facility] HospitalLIP[facility] PAN[facility] (21088)(TOTAL CHOLESTEROL, TRIGLYCERIDES, HDL)2021-12-29 05:56:47* Test Item Value Reference Range Interpretation Comme nts CHOL (test code = 2528002501) 168 mg/dL 120-200 HDL (test code = 1769460575) 102 mg/dL See_Comment [[employer]] The system which generated this result transmitted reference range: >=40. The reference range was not used to interpret this result as normal/abnormal. HDLC RATIO (test code = 0838646953) See_Comment [Automated [employer]] The system which generated this result transmitted reference range: <=5.0. The reference range was not used to interpret this result as normal/abnormal. TRIG (test code = 7192728665) 55 mg/dL 30-170 LDL CHOL (test code = 18910-7) 55 mg/dL See_Comment [[employer]] The system which generated this result transmitted reference range: <=160. The reference range was not used to interpret this result as normal/abnormal. VLDL (test code = 3666854162) 11 mg/dL 5-60 Lab Interpretation (test code = 22955-6) Normal [facility] HospitalThyroid Stimulating Hormone (TSH)2021-12-29 05:40:29* Test Item Value Reference Range Interpretation Comme nts TSH (test code = 6999576650) See_Comment Biotin has been reported to cause a negative bias, interpret results relative to patient's use of biotin. [Automated message] The system which generated this result transmitted reference range: 0.45 - 4.70 mIU/L. The reference range was not used to interpret this result as normal/abnormal. Lab Interpretation (test code = 98920-8) Normal [facility] [id number] 05:34:29* Test Item Value Reference Range Interpretation Comments TROPONIN I (test code = 5449372749) 0.006 ng/mL See_Comment [Automated message] The system [...] of biotin. Lab Interpretation (test code = 28660-7) Normal [facility]ETHANOL2022-[facility] 04:43:01 ALCOHOL<10mg/dL12/28/2021 11:43 PM [facility] Greater than or equal to 80 mg/dL. NOTE: Whole blood values are approximately 10% to 15% lower than serum and plasma.[facility] Glycosylated Hemoglobin (A1C)2021-12-29 01:51:44* Test Item Value Reference Range Interpretation Comme nts HGB A1C (test code = 4548-4) 6.5 % 4-5.7 H JUAN ALBERTO (test code = JUAN ALBERTO) Reference RangesNormal: <5.7%Prediabetes: 5.7 - 6.4%Diabetes: > 6.5% Lab Interpretation (test code = 25996-9) [facility] [id number] 21:26:50* Test Item Value Reference Range Interpretation Comments TROPONIN I (test code = 3216265640) 0.002 ng/mL See_Comment [Automated message] The system [...] of biotin. Lab Interpretation (test code = 49630-9) Normal [facility] HospitalN-TERMINAL [id number] 21:23:29* Test Item Value Reference Range Interpretation Comme nts NT-proBNP (test code = 9117073429) 41 pg/mL See_Comment [Automated message] The system which generated this result transmitted reference range: <=125. The reference range was not used to interpret this result as normal/abnormal. JUAN ALBERTO (test code = JUAN ALBERTO) Biotin has been reported to cause a negative bias, interpret results relative to patient's use of biotin. Lab Interpretation (test code = 64998-4) Normal [facility] HospitalAMMONIA, [id number] 21:20:38* Test Item Value Reference Range Interpretation Comme nts AMMONIA (test code = 4962172738) 9-33 L Slight hemolysis Lab Interpretation (test code = 25042-8) Abnormal [facility]. MET[facility]OLIC PANEL (14795)2021-12-28 21:08:48* Test Item Value Reference Range Interpretation Comme nts NA (test code = 1635950007) 137 mmol/L 135-145 K (test code = 2932563315) 4.5 mmol/L 3.5-5 CL (test code = 5223785696) 97 mmol/L 98-108 L CO2 TOTAL (test code = 9414252430) 29 mmol/L 23-31 AGAP (test code = 2091943207) 2-16 BUN (test code = 7397041484) 10 mg/dL 7-23 GLUCOSE (test code = 1292105092) 188 mg/dL 70-110 H CREATININE (test code = 8427595669) 0.58 mg/dL 0.6-1.25 L TOTAL BILI (test code = 3153573944) 0.8 mg/dL 0.1-1.1 CALCIUM (test code = 0811141941) 10.5 mg/dL 8.6-10.6 T PROTEIN (test code = 9856992708) 7.6 g/dL 6.3-8.2 ALBUMIN (test code = 8091850455) 4.5 g/dL 3.5-5 ALK PHOS (test code = 9914462535) 107 U/L 34-122 ALTv (test code = 1742-6) 66 U/L 5-50 H AST(SGOT) (test code = 2980408920) 96 U/L 13-40 H eGFR (test code = 0890056332) mL/min/1.73m2 JUAN ALBERTO (test code = JUAN [...] imaging tests). Lab Interpretation (test code = 11951-6) Abnormal [facility] HospitalPROTHROMBIN [facility] / [id number] 21:01:25* Test Item Value Reference Range Interpretation Comme nts PROTIME PATIENT (test code = 5964-2) See_Comment [Automated [employer]] The system which generated this result transmitted reference range: 12.0 - 14.7 Seconds. The reference range was not used to interpret this result as normal/abnormal. INR (test code = 6301-6) Normal INR <1.1; Warfarin Therapeutic range 2.0 to 3.0 or 2.5 to 3.5, depending upon the indications. Lab Interpretation (test code = 00516-0) Normal [facility] HospitalCBC WITH [id number] 20:54:03* Test Item Value Reference Range Interpretation Comme nts WBC (test code = 6690-2) See_Comment [Automated [employer]] The system which generated this result transmitted reference range: 4.20 - 10.70 10*3/?L. The reference range was not used to interpret this result as normal/abnormal. RBC (test code = 789-8) See_Comment [Automated [employer]] The system which generated this result [...] 34.2 g/dL 31.2-35 RDW-SD (test code = 69182-1) 47.8 fL 38.5-51.6 RDW-CV (test code = 788-0) 13.3 % 12.1-15.4 PLT (test code = 777-3) See_Comment [Automated [employer]] The system which generated this result transmitted reference range: 150 - 328 10*3/?L. The reference range was not used to interpret this result as normal/abnormal. MPV (test code = 70028-2) 8.6 fL 9.8-13 L NRBC/100 WBC (test code = 5539999505) See_Comment [Automated me ssage] The system which generated this result transmitted reference range: 0.0 - 10.0 /100 WBCs. The reference range was not used to interpret this result as normal/abnormal. NRBC x10^3 (test code = 2118712801) See_Comment [Automated messa ge] The system which generated this result transmitted reference range: 10*3/?L. The reference range was not used to interpret this result as normal/abnormal. GRAN MAT (NEUT) % (test code = 770-8) 64.1 % IMM GRAN % (test code = 8311343071) 0.40 % LYMPH % (test code = 736-9) 16.6 % MONO % (test code = 5905-5) 17.2 % EOS % (test code = 713-8) 0.2 % BASO % (test code = 706-2) 1.5 % GRAN MAT x10^3(ANC) (test code = 4044675116) 3.47 10*3/uL 1.99-6.95 IMM GRAN x10^3 (test code = 3014299891) 0-0.06 LYMPH x10^3 (test code = 731-0) 0.90 10*3/uL 1.09-3.23 L MONO x10^3 (test code = 742-7) 0.93 10*3/uL 0.36-1.02 EOS x10^3 (test code = 711-2) 0.06-0.53 L BASO x10^3 (test code = 704-7) 0.08 10*3/uL 0.01-0.09 Lab Interpretation (test code = 33360-0) Abnormal [facility] HospitalEthanol [id number] 21:08:00* Test Item Value Reference Range Interpretation Comme nts Ethanol (test code = ETOH) < 3 mg/dL The pharmacologi yudy response to blood alcohol levels mayvary from individual to individual. The fatal concentrationhas been reported to be >400mg/dL. Complete Blood Count Auto [id number] 17:33:00* Test Item Value Reference Range Interpretation [...] = NRBCP) 0 % UA, Urinalysis Rflx Cult/Qnqcb4456-09-55 17:33:00* Test Item Value Reference Range Interpretation Comme nts Color,Urine (test code = UCOL) Dark Yellow Yellow A Clarity,Urine (test code = UCLAR) Clear Clear Ph, Urine (test code = UPH) 6.5 5.0-9.0 N Specific Stanley,Urine (test code = USG) 1.015 1.005-1.030 N [...] = ULEU) Trace mg/dL Negative A Urine [id number] 17:33:00* Test Item Value Reference Range Interpretation Comme nts RBC,Urine (test code = URBCUF) None Seen /HPF 0-2 WBC,Urine (test code = UWBCUF) 0-5 /HPF 0-5 Epithelial Cell,Urine (test code = UECUF) 0-5 /HPF 0-5 Casts,Urine (test code = UCASTUF) None Seen /LPF None Seen Bacteria,Urine (test code = UBACTUF) None Seen /hpf None Seen Drug Screen,[id number] 17:33:00* Test Item Value Reference Range Interpretation [...] code = UPROP) Negative Negative Comprehensive Metabolic [id number] 17:33:00* Test Item Value Reference Range Interpretation [...] 101 U/L 46-116 N Sars-CoV-2/FLU A/B RSV [id number] 17:31:00* Test Item Value Reference Range Interpretation [...] SARS-CoV-2 PCR Result:) Negative by RT-PCR Drug Screen,Mtuhj2805-60-54 17:20:00* Test Item Value Reference Range Interpretation [...] UPROP) Negative Negative Complete Blood Count Auto [id number] 17:14:00* Test Item Value Reference Range Interpretation [...] code = NRBCP) 0 % Comprehensive Metabolic Rmtqh2578-15-63 17:14:00* Test Item Value Reference Range Interpretation [...] = ALP) 207 U/L 46-116 H Ethanol [id number] 17:14:00* Test Item Value Reference Range Interpretation Comme nts Ethanol (test code = ETOH) 192 mg/dL Complete Blood Count Auto [id number] 20:20:00* Test Item Value Reference Range Interpretation [...] code = NRBCP) 0 % Comprehensive Metabolic Harmm3810-30-79 20:20:00* Test Item Value Reference Range Interpretation [...] = ALP) 189 U/L 46-116 H Ethanol Yqfzs3359-82-57 20:20:00* Test Item Value Reference Range Interpretation Comme nts Ethanol (test code = ETOH) 10 mg/dL Sars-CoV-2/FLU A/B RSV [id number] 20:20:00* Test Item Value Reference Range Interpretation [...] Negative by Nucleic Acid Amplification UA, Urinalysis Lqhhgtdgsgr6351-07-28 20:20:00* Test Item Value Reference Range Interpretation Comme nts Color,Urine (test code = UCOL) Yellow Y Clarity,Urine (test code = UCLAR) Clear Clear PH,Urine (test code = UPH.XX) 7.0 5.5-8.5 Specific Stanley,Urine (test code = USG) 1.020 1.005-1.030 N [...] code = ULEU) Negative cells/uL Negative Drug Screen,[id number] 20:20:00* Test Item Value Reference Range Interpretation [...] (test code = UTHCS) Negative [facility] TO [facility] CT head/brain wo [facility] [address] [place] [address] Patient Name: Walt Velazquez Medical Record#: [id number] Address: Homeless City/State/Zip: [place] [address]: Vinnie Navarro MD Insurance: Self Pay /Age/Sex: 1970/50/M Admit/Reg Date: 09/17/[address]: Vinnie Navarro MD Location: [facility]/ PCP: PcpMd KERWIN Jimenez Date of Service: 09/17/21 Order (s): CT head/brain wo con CPT Code: 78550 Report Number: [id number] Reason for Exam: Altered mental status Location [...] apparent distress, T [facility] [employer] 2023-12-12 22:20:05 Pt removed all monitoring equipment T [facility] [employer] 2023-12-12 20:33:23 Pt brought in by [place] [facility] for medical clearance. [facility] [place] [facility] check pt out on scene but after pt complained of chest pain. [place] [facility] brought pt in for clearance for county. Zeina Albrecht RN [facility] 2023-11-05 16:26:20 Pt discharged with diagnosis of CP. Printed and verbal instructions reviewed with and given to pt. Prescriptions given x 0. Pt verbalized understanding of teaching and recommended follow-up. Denies questions or concerns at this time. Pt ambulatory to holding room to await transportation at discharge. Appears in no apparent distress. No ataxia noted. [facility] Renae Saldivar RN [facility] 2023-11-05 14:56:10 Walt Festus Velazquez Sr. is a 52 year old male arrive via [facility] c/o " throbbing ball in chest" since 0600 has been constant, pt immediately asks for food, T Emani Gomez RN [facility]
[2024-02-17 12:54] LABS: Absolute Basophils 0.1 K/uL (0-0.5); Absolute Eosinophils 0.1 K/uL (0-0.5); Absolute Lymphocytes (CBC) 1.8 K/uL (0.7-4.9); Absolute Monocytes 0.5 K/uL (0.1-1.3); Absolute Neutrophil 5.6 K/uL (1.8-8.0); Basophils % 0.9 % (0-1.3); Eosinophils % 1.2 % (0-4.4); Hematocrit 33.3 % (39.6-49.0); Hemoglobin 10.8 g/dL (13.6-17.9); Lymphocytes % 22.2 % (15.3-44.8); MCH 30.6 pg (27.0-35.0); MCHC 32.4 g/dL (32.0-36.0); MCV 94.3 fL (80-100); MPV 6.1 fL (7.6-11.3); Monocytes % 6.5 % (3.3-12.3); Neutrophils % 69.2 % (41.7-73.7); Platelets 323 thou/uL (152-406); RBC Red Blood Cell Count 3.53 M/uL (4.33-5.43); Red Cell Distribution Width 13.9 % (12.1-15.2)
[2024-02-17 13:11] LABS: Anion Gap 8.8 mEq/L (5.0-15.0); Potassium 3.8 mEq/L (3.5-5.1)
--- NOTE | 2024-02-17 13:29 | ER ---
Nurse's Notes [facility] Name: Walt Velazquez Age: 53 yrs Sex: Male : 1970 Arrival Date: 02/17/2024 Time: 12:27 Bed 19 Private MD: Diagnosis: Alcohol abuse, uncomplicated;Dehydration Presentation: 02/16 12:33 Chief complaint: EMS states: they were toned out by KYLER HUDDLESTON to the court house for pt kc6 slumped over in the parking lot. pt states he has no recollection of prior events. denies pain. Coronavirus screen: At this time, the client does not indicate any symptoms associated with coronavirus-19. Ebola Screen: No symptoms or risks identified at this time. Initial Sepsis Screen: Does the patient meet any 2 criteria? No. Patient's initial sepsis screen is negative. Does the patient have a suspected source of infection? No. Patient's initial sepsis screen is negative. Risk Assessment: Do you want to hurt yourself or someone else? Patient reports no desire to harm self or others. Onset of symptoms was February 17, 2024. 12:33 Method Of Arrival: EMS: [facility] kc6 12:33 Acuity: LATASHA 3 kc6 Triage Assessment: 12:35 General: Appears in no apparent distress. comfortable, unkempt, well developed, kc6 Behavior is calm, cooperative, appropriate for age, Smells of alcohol. Pain: Denies pain. EENT: No signs and/or symptoms were reported regarding the EENT system. Neuro: Level of Consciousness is awake, alert, obeys commands, Oriented to person, place. Cardiovascular: Capillary refill < 3 seconds. Respiratory: Airway is patent Trachea midline Respiratory effort is even, unlabored, Respiratory pattern is regular, symmetrical. GI: No signs and/or symptoms were reported involving the gastrointestinal system. : No signs and/or symptoms were reported regarding the genitourinary system. Derm: No signs and/or symptoms reported regarding the dermatologic system. Skin is intact, with poor turgor Skin is normal. Musculoskeletal: No signs and/or symptoms reported regarding the musculoskeletal system. Circulation, motion, and sensation intact. Capillary refill < 3 seconds, Range of motion: intact in all extremities. Historical: - Allergies: 12:35 Trazodone; kc6 - Home Meds: 12:35 Unable to obtain [Active]; kc6 - PMHx: 12:35 Hypertensive disorder; Seizure; kc6 - PSHx: 12:35 Unable to Obtain; kc6 - Immunization history:: Adult Immunizations not up to date. - Infectious Disease History:: Denies. - Social history:: Smoking status: Patient reports the use of cigarette tobacco products, denies chronic smoking, but will smoke occasionally. - Family history:: not pertinent. - Hospitalizations: : No recent hospitalization is reported. Screenin:37 [facility] ED Fall Risk Assessment (Adult) History of falling in the last 3 months, kc6 including since admission No falls in past 3 months (0 pts) Confusion or Disorientation Yes (5 pts) Intoxicated or Sedated Yes (3 pts) Impaired Gait No (0 pts) Mobility Assist Device Used No (0 pt) Altered Elimination No (0 pt) Score/Fall Risk Level 3 or more points = High Risk Oriented to surroundings, Maintained a safe environment, Educated pt \T\ family on fall prevention, incl call for assistance when getting out of bed, Assessed \T\ reinforced patient's understanding of fall precautions. Abuse screen: Denies threats or abuse. Denies injuries from another. Nutritional screening: No deficits noted. Tuberculosis screening: No symptoms or risk factors identified. Assessment: 12:37 Reassessment: please see triage. [facility] 13:48 Reassessment: Patient appears in no apparent distress at this time. No changes from kc previously documented assessment. Patient and/or family updated on plan of care and expected duration. Pain level reassessed. Patient is alert, oriented x 3, equal unlabored respirations, skin warm/dry/pink. Vital Signs: 12:33 BP 102 / 62; Pulse 88; Resp 18 S; Temp 98(O); Pulse Ox 95% on R/A; Weight 63.5 kg (R); kc6 Height 5 ft. 3 in. (R); Pain 0/10; 12:33 Body Mass Index 24.80 (63.50 kg, 160.02 cm) kc6 12:33 Pain Scale: Adult [facility] ED Course: 12:30 Patient arrived in ED. bd 12:33 Geri Albrecht RN is Primary Nurse. kc6 12:35 Triage completed. kc6 12:35 Arm band placed on. kc6 12:36 Kaiser Marie MD is Attending Physician. rn 12:36 Patient has correct armband on for positive identification. Placed in gown. Bed in low kc6 position. Call light in reach. Side rails up X2. Pulse ox on. NIBP on. Door closed. Noise minimized. Lights dimmed. Pillow given. 12:43 Maintain EMS IV. Dressing intact. Good blood return noted. Site clean \T\ dry. Gauge \T\ hernan 6 site: 20GRAC. Flushed with 10 mL NS. 12:49 Basic Metabolic Panel Sent. iw 12:49 CBC with Diff Sent. iw 12:49 Initial lab(s) drawn, by me, sent to lab. iw 13:28 IV discontinued, intact, bleeding controlled, No redness/swelling at site. Pressure me1 dressing applied. 13:52 No provider procedures requiring assistance completed. kc6 Administered Medications: 12:52 Drug: NS 0.9% IV 1000 ml IV at 1000 ml once Route: IV; Rate: 1000 ml; Site: right kc6 antecubital; 13:48 Follow up: Response: No adverse reaction; IV Status: Completed infusion; IV Intake: kc6 1000ml 13:36 Not Given (Patient Refused): phenytoin1 grams IVPB once me1 Medication: 13:52 VIS not applicable for this client. kc6 Intake: 13:48 IV: 1000ml; Total: 1000ml. kc6 Outcome: 13:29 Discharge ordered by . rn 13:52 Discharged to home ambulatory, kc6 13:52 Condition: good 13:52 Discharge instructions given to patient, Instructed on discharge instructions, follow up and referral plans. Demonstrated understanding of instructions, follow-up care, 13:52 Patient left the ED. kc6 Signatures: Mily Auguste Irene, ROBERTO MEJIA iw Kaiser Marie MD MD rn Campbell, Kaitlyn, RN RN [facility] Dora Bowens RN RN al1
--- NOTE | 2024-02-17 13:29 | EDPHYS ---
Physician Documentation [facility] Name: Walt Velazquez Age: 53 yrs Sex: Male : 1970 Arrival Date: 02/17/2024 Time: 12:27 Bed 19 Private MD: ED Physician Kaiser Marie HPI: 02/16 13:24 This 53 yrs old Male presents to ER via EMS with complaints of Fall Injury. rn 13:24 This 53 yrs old Male presents to ER via EMS with complaints of found on ground.rn 13:24 The patient presents with decreased responsiveness. Onset: The symptoms/episode rn began/occurred just prior to arrival. Possible causes: EtOH intoxication, seizure. Current symptoms: In the emergency department the patient's symptoms are unchanged from the initial presentation. The patient has experienced similar episodes in the past. The patient has been recently seen at the [facility] Emergency Department. Patient found laying down outside, brought in by EMS. Patient does not recall events, denies new trauma. He is not sure if he was just asleep, drunk, or had another seizure. Patient was just seen by me an hour ago and discharged from hospital. Patient is a daily drinker and noncompliant with seizure medication.. Historical: - Allergies: 12:35 Trazodone; kc6 - Home Meds: 12:35 Unable to obtain [Active]; kc6 - PMHx: 12:35 Hypertensive disorder; Seizure; kc6 - PSHx: 12:35 Unable to Obtain; kc6 - Immunization history:: Adult Immunizations not up to date. - Infectious Disease History:: Denies. - Social history:: Smoking status: Patient reports the use of cigarette tobacco products, denies chronic smoking, but will smoke occasionally. - Family history:: not pertinent. - Hospitalizations: : No recent hospitalization is reported. ROS: 13:24 Constitutional: Negative for fever, chills, and weight loss, Neck: Negative for injury, rn pain, and swelling, Cardiovascular: Negative for chest pain, palpitations, and edema, Respiratory: Negative for shortness of breath, cough, wheezing, and pleuritic chest pain, Abdomen/GI: Negative for abdominal pain, nausea, vomiting, diarrhea, and constipation, Back: Negative for injury and pain, Neuro: Negative for headache, weakness, numbness, tingling Exam: 13:24 Constitutional: This is a well developed, well nourished patient who is awake, alert, rn and in no acute distress. Neck: No midline cervical tenderness. Cardiovascular: Regular rate and rhythm. No pulse deficits. Respiratory: No increased work of breathing, no retractions or nasal flaring. Abdomen/GI: Soft, non-tender Back: No spinal tenderness. MS/ Extremity: Pulses equal, no cyanosis. Neuro: Awake and alert, GCS 15, oriented to person, place, time, and situation. Cranial nerves II-XII grossly intact. Motor strength 5/5 in all extremities. Sensory grossly intact. 15:55 ECG was reviewed by the Attending Physician. rn Vital Signs: 12:33 BP 102 / 62; Pulse 88; Resp 18 S; Temp 98(O); Pulse Ox 95% on R/A; Weight 63.5 kg (R); kc6 Height 5 ft. 3 in. (R); Pain 0/10; 12:33 Body Mass Index 24.80 (63.50 kg, 160.02 cm) kc6 12:33 Pain Scale: Adult kc6 MDM: 12:36 Patient medically screened. rn 13:24 Differential Diagnosis: alcohol intoxication, seizure, volume depletion, Syncope. Data rn reviewed: vital signs, nurses notes, old medical records. ED course: Patient again refuses to stay. Feels better and had a meal, does not seem intoxicated, no sign of withdrawal, no acute traumatic findings. Will discharge home per patient's wishes.. 02/16 12:40 Order name: CBC with Diff; Complete Time: 13:17 rn 02/16 12:40 Order name: Basic Metabolic Panel; Complete Time: 13:17 rn 02/16 12:40 Order name: ETOH Level; Complete Time: 13:17 rn 02/16 12:40 Order name: EKG; Complete Time: 12:40 rn 02/16 12:40 Order name: IV Start; Complete Time: 12:42 rn 02/16 12:40 Order name: EKG - Nurse/Tech; Complete Time: 12:52 rn EC:55 Rate is 88 beats/min. Rhythm is regular. QRS [place] is Normal. CO interval is normal. QRS rn interval is normal. QT interval is normal. No Q waves. T waves are Normal. No ST changes noted. Clinical impression: NSR w/ Non-specific ST/T Changes. Interpreted by me. Reviewed by me. Administered Medications: 12:52 Drug: NS 0.9% IV 1000 ml IV at 1000 ml once Route: IV; Rate: 1000 ml; Site: right kc6 antecubital; 13:48 Follow up: Response: No adverse reaction; IV Status: Completed infusion; IV Intake: kc6 1000ml 13:36 Not Given (Patient Refused): phenytoin1 grams IVPB once me1 Disposition Summary: 02/17/24 13:29 Discharge Ordered Notes: Location: Home rn Problem: new rn Symptoms: have improved rn Condition: Stable rn Diagnosis - Alcohol abuse, uncomplicated rn - Dehydration rn Followup: rn - With: Private Physician - When: As needed - Reason: Recheck today's complaints, Re-evaluation by your physician Discharge Instructions: - Discharge Summary Sheet rn - Dehydration, Adult rn - Alcohol Abuse and Nutrition rn Forms: - Medication Reconciliation Form rn - Antibiotic rn care manager - Prescription Opioid Use rn - Patient Portal Instructions rn - Leadership Thank You Letter rn Signatures: Dispatcher [employer] Kaiser Rausch MD MD rn Campbell, Kaitlyn, RN RN kc Dora Bowens RN me1 Corrections: (The following items were deleted from the chart) 12:40 12:40 CBC+H.LAB.BRZ ordered. EDMS EDMS 12:40 12:40 BASIC METABOLIC PANEL+C.LAB.BRZ ordered. EDMS EDMS 12:40 12:40 ETHANOL+C.LAB.BRZ ordered. EDMS EDMS
[2024-02-17 13:58] VITALS: BP 102/62; TEMP 98; O2SAT 95
== END 2024-02-17 13:52 | disposition home or self-care (01) ==
LOC: ER 12:27
DX: F10.10 Alcohol abuse, uncomplicated (principal); E86.0 Dehydration; F17.210 Nicotine dependence, cigarettes, uncomplicated; Z91.148 Patient's other noncompliance with medication regimen for other reason
CPT/HCPCS: 36415; 80048; 82077; 85025

== ENCOUNTER 2024-02-17 21:32 | Emergency (ER) | payer SELFPAY ==
--- NOTE | 2024-02-17 21:46 | EDPHYS ---
Physician Documentation [facility] Name: Walt Velazquez Age: 53 yrs Sex: Male : 1970 Arrival Date: 02/17/2024 Time: 21:32 Bed DX1 Private MD: ED Physician Deandre Mckeon HPI: 02/16 22:00 This 53 yrs old Male presents to ER via Unassigned with unknown complaint. sb4 22:00 Bystander called EMS because they saw patient fell and was on the ground. Patient has sb4 no complaints at this time. Was seen here earlier. Endorses drinking alcohol. Historical: - Allergies: 22:00 Trazodone; kl - PMHx: 22:00 Hypertensive disorder; Seizure; etoh abuse (Seizure); kl - PSHx: 22:00 None; kl - Immunization history:: Adult Immunizations not immunized. - Infectious Disease History:: Denies. - Social history:: Smoking status: unknown Patient uses alcohol, on a daily basis. ROS: 22:00 Constitutional: Negative for fever, chills, and weight loss, sb4 22:00 All other systems are negative, Exam: 22:00 Constitutional: This is a well developed, well nourished patient who is awake, alert, sb4 and in no acute distress. Head/Face: Normocephalic, atraumatic. Eyes: Extra-ocular motions intact. Periorbital areas with no swelling, redness, or edema. ENT: Mucous membranes moist. Skin: Warm, dry with normal turgor. Normal color with no rashes, no lesions, and no evidence of cellulitis. Vital Signs: 21:59 BP 128 / 72; Pulse 68; Resp 16; Temp 97(TE); Pulse Ox 95% on R/A; Pain 0/10; kl 21:59 Pain Scale: Adult kl MDM: 21:39 Patient medically screened. sb4 22:00 Data reviewed: vital signs, nurses notes, EMS record, and as a result, I will discharge sb4 patient. Counseling: I had a detailed discussion with the patient and/or guardian regarding the historical points, exam findings, and any diagnostic results supporting the discharge/admit diagnosis, to return to the emergency department if symptoms worsen or persist or if there are any questions or concerns that arise at home. Administered Medications: No medications were administered Disposition Summary: 02/17/24 21:45 Discharge Ordered Notes: Location: Home sb4 Problem: an ongoing problem sb4 Symptoms: are unchanged sb4 Condition: Stable sb4 Diagnosis - Fall on same level, unspecified sb4 Followup: sb4 - With: Private Physician - When: As needed - Reason: Recheck today's complaints, Re-evaluation by your physician Discharge Instructions: - Discharge Summary Sheet sb4 Forms: - Patient Portal Instructions sb4 - Leadership Thank You Letter sb4 Signatures: Natty Masters, RN RN Chiquita Mcnamara PA-C PAMercedesC sb4
--- NOTE | 2024-02-17 22:03 | ER ---
Nurse's Notes [facility] Name: Walt Velazquez Age: 53 yrs Sex: Male : 1970 Arrival Date: 02/17/2024 Time: 21:32 Bed DX1 Private MD: Diagnosis: Fall on same level, unspecified Presentation: 02/16 21:59 Chief complaint: Patient states: reported fall denies pain. Coronavirus screen: Vaccine kl status: Patient reports being unvaccinated. Ebola Screen: Patient negative for fever greater than or equal to 101.5 degrees Fahrenheit, and additional compatible Ebola Virus Disease symptoms. Initial Sepsis Screen: Does the patient meet any 2 criteria? No. Patient's initial sepsis screen is negative. Does the patient have a suspected source of infection? No. Patient's initial sepsis screen is negative. Risk Assessment: Do you want to hurt yourself or someone else? Patient reports no desire to harm self or others. Onset of symptoms was February 17, 2024. 21:59 Method Of Arrival: EMS: [facility] 21:59 Acuity: LATASHA 5 kl Triage Assessment: 22:01 General: Appears in no apparent distress. unkempt, Behavior is calm, cooperative. Pain: kl Denies pain. EENT: No deficits noted. No signs and/or symptoms were reported regarding the EENT system. Neuro: No deficits noted. Cardiovascular: No deficits noted. Respiratory: No deficits noted. GI: No deficits noted. No signs and/or symptoms were reported involving the gastrointestinal system. : No deficits noted. No signs and/or symptoms were reported regarding the genitourinary system. Derm: No deficits noted. No signs and/or symptoms reported regarding the dermatologic system. Musculoskeletal: No deficits noted. No signs and/or symptoms reported regarding the musculoskeletal system. Historical: - Allergies: 22:00 Trazodone; kl - PMHx: 22:00 Hypertensive disorder; Seizure; etoh abuse (Seizure); kl - PSHx: 22:00 None; kl - Immunization history:: Adult Immunizations not immunized. - Infectious Disease History:: Denies. - Social history:: Smoking status: unknown Patient uses alcohol, on a daily basis. Screenin:02 [facility] ED Fall Risk Assessment (Adult) History of falling in the last 3 months, kl including since admission Yes- physiologic fall (2 pts) Confusion or Disorientation No (0 pts) Intoxicated or Sedated No (0 pts) Impaired Gait No (0 pts) Mobility Assist Device Used No (0 pt) Altered Elimination No (0 pt) Score/Fall Risk Level 0 - 2 = Low Risk Oriented to surroundings, Maintained a safe environment. Abuse screen: Denies threats or abuse. Nutritional screening: No deficits noted. Tuberculosis screening: No symptoms or risk factors identified. Assessment: 22:01 Reassessment: see triage. Vital Signs: 21:59 BP 128 / 72; Pulse 68; Resp 16; Temp 97(TE); Pulse Ox 95% on R/A; Pain 0/10; kl 21:59 Pain Scale: Adult ED Course: 21:39 Patient arrived in ED. sb4 21:39 Chiquita Noonan PA-C is PHCP. sb4 21:39 Deandre Mckeon MD is Attending Physician. sb4 22:00 Triage completed. 22:02 Patient has correct armband on for positive identification. 22:02 No provider procedures requiring assistance completed. Patient did not have IV access kl during this emergency room visit. Administered Medications: No medications were administered Medication: 22:02 VIS not applicable for this client. Outcome: 21:45 Discharge ordered by . sb4 22:02 Discharged to home ambulatory, 22:02 Condition: stable 22:02 Discharge instructions given to patient, Instructed on discharge instructions, follow up and referral plans. Demonstrated understanding of instructions, follow-up care, 22:03 Patient left the ED. Signatures: Natty Masters RN RN Chiquita Mcnamara PA-C PA-C sb4
[2024-02-17 22:08] VITALS: BP 128/72; TEMP 97; O2SAT 95
== END 2024-02-17 22:03 | disposition home or self-care (01) ==
LOC: ER 21:32
DX: Z04.3 Encounter for examination and observation following other accident (principal); W18.30XA Fall on same level, unspecified, initial encounter

== ENCOUNTER 2024-02-21 22:32 | Emergency (ER) | payer SELFPAY ==
--- OUTSIDE RECORDS SUMMARY | 2024-02-21 22:39 | XMS REPORT | Continuity of Care Document ---
Author Name Unknown Address [address] [facility] [address] [place] [address] [facility] Address [address] [facility] [address] [place] [address] Care Team Providers Care Eeo Officer Name Role Phone Pcp-None Primary Care Physician Unavailab Rafael Thomas MD Attending Clinician [phone] Sulaiman Hawkins DO Attending Clinician [phone] HEMANT KLEIN Attending Clinician Unavailable Hemant Klein MD Attending Clinician [phone] Pan Pinto Attending Clinician Unavailab JESSICA Gallardo Attending Clinician Unavailable Rayray Driscoll MD Attending Clinician +[phone] Jessica Prado MD Attending Clinician [phone] Oswald Murphy MD Attending Clinician [phone] DIYA CHOWDHURY Attending Clinician Unavailab Diya Mackey DO Attending Clinician [phone] Fidel Cuellar Attending Clinician Unavailable DIKR YARBROUGH Attending Clinician Unavailable Leticia Rowland Attending Clinician [phone] Dirk Yarbrough MD Attending Clinician [phone] Faye Portillo LVN Attending Clinician [phone] Pia Reddy Attending Clinician [phone] Vinnie Navarro Attending Clinician Unavailable OSWALD MURPHY Admitting Clinician Unavailable Oswald Murphy MD Admitting Clinician [phone] DIYA CHOWDHURY Admitting Clinician UnavailLeticia Gaytan Admitting Clinician Unavailable JESSICA PRADO Admitting Clinician Unavailable Jessica Prado MD Admitting Clinician [phone] Payers Payer Name Policy Type Policy Number Effective Date Expirati on Date Source Problems Condition Name Condition Details Condition Category Status Onset Date Resolution Date Last Treatment Date Treating Clinician Comments Source Alcohol withdrawal syndrome with complicati on Alcohol withdrawal syndrome with complicati on Disease Active 2-19 00:00: 00 [facility] Type 2 diabetes mellitus with other specified complicati on Type 2 diabetes mellitus with other specified complicati on Disease Active - 00:00: 00 [facility] Dyslipidem ia Dyslipidem ia Disease Active 12-29 00:00: 00 [facility] Chest pain, unspecifie d type Chest pain, unspecifie d type Disease Active 7- 00:00: 00 [facility] Priapism Priapism Disease Active 2013-06- 00:00: 00 [facility] Allergies, Adverse Reactions, Alerts Allergy Name Allergy Type Status Severity Reaction(s) Onset Date Inactive Date Treating Clinician Comments Source No Known Drug Allergie s DA Active U 4-25 00:00: 00 [facility] No Known Drug Allergie s DA Active U 0 9-16 00:00: 00 [facility] No Known Drug Allergie s DA Active U 3-29 00:00: 00 [facility] No Known Drug Allergie s DA Active U 2019-06 2-16 00:00: 00 [facility] No Known Drug Allergie s DA Active U 2019-06 2-15 00:00: 00 [facility] No Known Drug Allergie s DA Active U 2019-06 00:00: 00 [facility] Trazodon e Propensi ty to adverse reaction s Active Other - See comments 10-06 00:00: 00 [facility] TRAZODON E DRUG INGREDI Active Other-Cmnt 10-06 00:00: 00 [facility] Social History Social Habit Start Date Stop Date Quantity Comments Source History of tobacco use Cigarette Smoker [facility] Alcoholic beverage intake 2023-11-07 00:00:00 2023-11-07 00:00:00 [...] 1 dose, On Thu11/11/22 at 1445, STAT [facility] multivitami n tablet 1 tablet 08-12 15:00: 00 Yes 1{tbl} 1 tablet, Oral, DAILY, First dose on Thu08/12/22 at 0900, Until Discontinu ed, Routine [facility] foLIC acid (FOLATE) tablet 1 mg 08-12 15:00: 00 Yes 1mg 1 mg, Oral, DAILY, First dose on Thu08/12/22 at 0900, Until Discontinu ed, Routine [facility] foLIC acid 1 mg tablet 08-12 00:00: 00 09-12 04:59 :00 No [id number] 1mg Take 1 tablet by mouth in the morning for 30 days. [facility] oxazepam (SERAX) capsule [...] Thu08/13/22 at 0600, Routine [Order 2 End] [facility] thiamine (VITAMIN B1) tablet 100 mg 08-11 16:15: 00 Yes 100mg 100 mg, Oral, DAILY, First dose on Thu08/11/22 at 1015, Until Discontinu ed, Routine [facility] enoxaparin (LOVENOX) injection 40 mg 08-10 23:00: 00 Yes 40mg 40 mg, Subcutaneo us, DAILY, First dose on Thu08/10/22 at 1700, Until Discontinu ed, Routine [facility] NaCl 0.9% (NS) IV infusion 1,000 mL 08-10 15:00: 00 Yes 1000mL at 125 mL/hr, IV Infusion, CONTINUOUS , Starting on Thu08/10/22 at 0900, Until Discontinu ed, Routine [facility] foLIC acid (FOLATE) 5 mg in NaCl 0.9% (NS) piggyback 08-10 15:00: 00 08-11 16:14 :47 No 5mg IV Piggyback, DAILY, First dose on Thu08/10/22 at 0900, Until Discontinu ed, 50 mL [facility] thiamine (VITAMIN B1) 100 mg in NaCl 0.9% (NS) piggyback 08-10 15:00: 00 08-10 16:08 :00 No 100mg IV Piggyback, DAILY, 1 dose, First dose on Thu08/10/22 at 0900, 50 mL [facility] LORazepam (ATIVAN) injection 2 mg 08-10 14:52: 57 Yes 2mg 2 mg, Slow IV Push, Q4HPRN, Starting on Thu08/10/22 at 0852, Until Discontinu ed, Routine, Seizures, Agitation, Anxiety [facility] Sliding Scale Insulin-Reg ular + Fsbg Testing 08-10 13:30: 00 Yes Subcutaneo us, AC+HS, First dose on Thu08/10/22 at 0730, Until Discontinu ed, Routine [facility] oxazepam (SERAX) capsule 15 mg 08-10 12:08: 05 Yes 15mg 15 mg, Oral, Q4HPRN, Starting on Thu08/10/22 at 0608, Until Discontinu ed, Routine, Only while awake for DBP equal to or greater than 100, HR equal to or greater than 100. [facility] dextrose 10% (D10W) bolus infusion 250 mL [...] blood glucose is < 80 mg/dL, repeat.
[facility] glucagon (GLUCAGEN DIAGNOSTIC KIT) injection 1 mg 08-10 12:03: 20 Yes 1mg 1 mg, Intramuscu lar, PRN, Starting on Thu08/10/22 at 0603, Until Discontinu ed, JACIEL, Blood Glucose < or = 70 mg/dL and patient is NPO, unable to swallow or has mental changes. [facility] ondansetron (ZOFRAN (PF)) injection 4 mg 08-10 12:02: 53 Yes 4mg 4 mg, Slow IV Push, Q6HPRN, Starting on Thu08/10/22 at 0602, Until Discontinu ed, Routine, Nausea and Vomiting (N/V) [facility] ibuprofen (MOTRIN IB) tablet 200 mg 08-10 12:02: 45 Yes 200mg 200 mg, Oral, Q6HPRN, Starting on Thu08/10/22 at 0602, Until Discontinu ed, Routine, Pain (scale 1-3) [facility] NaCl 0.9% (NS) bolus infusion 1,000 mL 08-10 10:15: 00 08-10 13:00 :00 No 1000mL at 999 mL/hr, 1,000 mL, IV Infusion, ONCE, 1 dose, On Thu08/10/22 at 0415, STAT [facility] LORazepam (ATIVAN) injection 0.5 mg 08-10 09:15: 00 08-10 09:19 :00 No .5mg 0.5 mg, Slow IV Push, ONCE, 1 dose, On Thu08/10/22 at 0315, STAT [facility] LORazepam (ATIVAN) injection 1 mg 08-10 08:00: 00 08-10 07:05 :00 No 1mg 1 mg, Slow IV Push, ONCE NOW, 1 dose, On 08/10/22 at 0200, STAT [facility] thiamine (VITAMIN B1) injection 100 mg 08-10 06:45: 00 08-10 06:52 :00 No 100mg 100 mg, Intravenou s, ONCE, 1 dose, [facility] 08/10/22 [facility] 0045[facility] ([facility]AN) [facility] 1 mg 08-10 05:15: 00 08-10 05:22 :00 No 1mg 1 mg, Slow IV Push, ONCE, 1 dose, On 08/09/22 at 2315, STAT [facility] ketorolac (TORADOL) injection 15 [...] Last dose on Thu12/31/21 at 1330, Routine [facility] multivitami n tablet 12-31 00:00: 00 Yes [id number] 1{tbl} Take 1 tablet by mouth in the morning. [facility] thiamine 100 mg tablet 12-31 00:00: 00 Yes [id number] 100mg Take 1 tablet by mouth in the morning. [facility] aspirin 81 mg chewable tablet 12-31 00:00: 00 Yes [id number] 81mg Take 1 tablet by mouth in the morning. [facility] foLIC acid 1 mg tablet 12-31 00:00: 00 01-31 04:59 :00 No [id number] 1mg Take 1 tablet by mouth in the morning for 30 days. [facility] metFORMIN 500 mg tablet 12-30 00:00: 00 Yes [id number] 500mg Take 1 tablet by mouth in the morning and 1 tablet in the evening. Take with meals. [facility] aspirin chewable tablet 81 mg 12-29 14:00: 00 Yes 81mg 81 mg, Oral, DAILY, First dose on Thu12/29/21 at 0900, Until Discontinu ed, Routine [facility] sulfur hexafluorid e microsphr (LUMASON) injection 5 mL 12-29 13:45: 00 12-29 13:45 :00 No [id number] 5mL 5 mL, Intravenou s, ONCE, 1 dose, On 12/29/21 at 0845, Routine
sociology faculty member approving Restricted medication : STEFANIE GORMAN [facility] enoxaparin (LOVENOX) injection 40 mg 12-29 13:00: 00 Yes 40mg 40 mg, Subcutaneo us, Q24H, First dose on Thu12/29/21 at 0800, Until Discontinu ed, Routine [facility] Sliding Scale Insulin - Lispro (HumaLOG) + Fsbg Testing 12-29 13:00: 00 Yes Subcutaneo us, TID MEALS+HS, First dose on Thu12/29/21 at 0800, Until Discontinu ed, Routine [facility] diazePAM (VALIUM) injection 10 mg 12-29 05:30: 00 12-29 04:40 :00 No 10mg 10 mg, Intravenou s, ONCE, 1 dose, On Thu12/29/21 at 0030, Routine [facility] diazePAM (VALIUM) injection 10 mg 12-29 04:15: 00 12-29 03:17 :00 No 10mg 10 mg, Intravenou s, ONCE, 1 dose, On 12/28/21 at 2315, Routine [facility] diazePAM (VALIUM) injection 5 mg 12-29 03:45: 01 Yes 5mg 5 mg, Intravenou s, QIDPRN, Starting on 12/28/21 at 2245, Until Discontinu ed, Routine, Seizures, Agitation [facility] foLIC acid (FOLATE) tablet 1 mg 12-29 03:45: 00 Yes 1mg 1 mg, Oral, DAILY, First dose on 12/28/21 at 2245, Until Discontinu ed, Routine [facility] thiamine (VITAMIN B1) tablet 100 mg 12-29 03:45: 00 Yes 100mg 100 mg, Oral, DAILY, First dose (after last modificati on) on 12/28/21 at 2245, Until Discontinu ed, Routine [facility] glucagon (GLUCAGEN DIAGNOSTIC KIT) injection 1 mg 12-29 03:42: 19 Yes 1mg 1 mg, Intramuscu lar, PRN, Starting on 12/28/21 at 2242, Until Discontinu ed, JACIEL, Blood Glucose < or = 70 mg/dL and patient is unable to swallow or has mental changes. [facility] dextrose 10% (D10W) bolus [...] blood glucose is < 80 mg/dL, repeat.
[facility] LORazepam (ATIVAN) injection 1 mg 12-29 03:30: 00 12-29 02:32 :00 No 1mg 1 mg, Intravenou s, ONCE, 1 dose, On 12/28/21 at 2230, Routine
Is the medication being used for status epilepticu s? No [facility] oxazepam (SERAX) capsule 15 mg 12-29 00:28: 20 Yes 15mg 15 mg, Oral, Q4HPRN, Starting on 12/28/21 at 1928, Until Discontinu ed, Routine, Only while awake for DBP equal to or greater than 100, HR equal to or greater than 100. [facility] ondansetron (ZOFRAN (PF)) injection 4 mg 12-29 00:23: 47 Yes 4mg 4 mg, Slow IV Push, Q6HPRN, Starting on 12/28/21 at 1923, Until Discontinu ed, Routine, Nausea and Vomiting (N/V) [facility] acetaminoph en (TYLENOL) tablet 650 mg 12-29 00:23: 37 Yes 650mg 650 mg, Oral, Q6HPRN, Starting on 12/28/21 at 1923, Until Discontinu ed, Routine, Pain (scale 1-3), Temp > 38.5 C [facility] chlordiazeP OXIDE (LIBRIUM) capsule 25 mg 12-28 23:15: 00 12-28 23:24 :00 No 25mg 25 mg, Oral, ONCE, 1 dose, On 12/28/21 at 1815, [facility] NaCl 0.9% (NS) bolus infusion 2,000 mL 12-28 22:45: 00 12-28 23:18 :00 No 2000mL at 999 mL/hr, 2,000 mL, IV Infusion, ONCE, 1 dose, On 12/28/21 at 1745, JACIEL [facility] LORazepam (ATIVAN) injection 1 mg 12-28 20:45: 00 12-28 20:49 :00 No 1mg 1 mg, Slow IV Push, ONCE, 1 dose, On 12/28/21 at 1545, STAT
Is the medication being used for status epilepticu s? No [facility] acetaminoph en (TYLENOL) 500 mg tablet 10-06 00:00: 00 Yes 500mg Take 1 Tab by mouth every 6 (six) hours as needed for Pain. [facility] Vital Signs Vital Name Observation Time Observation Value Comments S ource Systolic blood pressure 2023-12-13 05:16:00 125 mm[Hg] [facility] Diastolic blood pressure 2023-12-13 05:16:00 90 mm[Hg] [facility] Heart rate 2023-12-13 05:16:00 77 /min [facility] Body temperature 2023-12-13 05:16:00 36.06 Theresa [facility] Respiratory rate 2023-12-13 05:16:00 16 /min [facility] Oxygen saturation in Arterial blood by Pulse oximetry 2023-12-13 05:16:00 98 /min [facility] Body height 2023-12-13 01:35:00 157.5 cm [facility] Body weight 2023-12-13 01:35:00 65.772 kg [facility] BMI 2023-12-13 01:35:00 26.52 kg/m2 [facility] Systolic blood pressure 2023-11-05 21:00:00 106 mm[Hg] [facility] Diastolic blood pressure 2023-11-05 21:00:00 70 mm[Hg] [facility] Heart rate 2023-11-05 21:00:00 74 /min [facility] Body temperature 2023-11-05 21:00:00 36.5 Theresa [facility] Respiratory rate 2023-11-05 21:00:00 21 /min [facility] Oxygen saturation in Arterial blood by Pulse oximetry 2023-11-05 21:00:00 98 /min [facility] Body height 2023-11-05 19:59:00 160 cm [facility] Body weight 2023-11-05 19:59:00 63.504 kg [facility] BMI 2023-11-05 19:59:00 24.80 kg/m2 [facility] Systolic blood pressure 2022-11-11 20:31:31 116 mm[Hg] [facility] Diastolic blood pressure 2022-11-11 20:31:31 77 mm[Hg] [facility] Heart rate 2022-11-11 20:31:31 84 /min Unive [facility] Respiratory rate 2022-11-11 20:31:31 12 /min [facility] Oxygen saturation in Arterial blood by Pulse oximetry 2022-11-11 20:31:31 90 /min [facility] Body temperature 2022-11-11 18:49:00 37.11 Theresa [facility] Body height 2022-11-11 18:49:00 160 cm [facility] Body weight 2022-11-11 18:49:00 68.04 kg [facility] BMI 2022-11-11 18:49:00 26.57 kg/m2 [facility] Body temperature 2022-08-11 14:00:00 36.5 Theresa [facility] Systolic blood pressure 2022-08-11 10:00:00 116 mm[Hg] [facility] Diastolic blood pressure 2022-08-11 10:00:00 71 mm[Hg] [facility] Heart rate 2022-08-11 10:00:00 70 /[facility] Respiratory rate 2022-08-11 10:00:00 16 /min [facility] Body weight 2022-08-11 10:00:00 65.499 kg [facility] BMI 2022-08-11 10:00:00 25.58 kg/m2 [facility] Oxygen saturation in Arterial blood by Pulse oximetry 2022-08-11 10:00:00 100 /min [facility] Body height 2022-08-10 22:12:00 160 cm [facility] Systolic blood pressure 2022-04-06 16:00:00 125 mm[Hg] [facility] Diastolic blood pressure 2022-04-06 16:00:00 75 mm[Hg] [facility] Heart rate 2022-04-06 16:00:00 87 /min [facility] Respiratory rate 2022-04-06 16:00:00 22 /min [facility] Oxygen saturation in Arterial blood by Pulse oximetry 2022-04-06 16:00:00 98 /min [facility] Body temperature 2022-04-06 14:41:00 37 Theresa [facility] Body height 2022-04-06 14:41:00 160 cm [facility] Body weight 2022-04-06 14:41:00 63.504 kg [facility] BMI 2022-04-06 14:41:00 24.80 kg/m2 [facility] Systolic blood pressure 2022-01-20 02:27:00 121 mm[Hg] [facility] Diastolic blood pressure 2022-01-20 02:27:00 75 mm[Hg] [facility] Heart rate 2022-01-20 02:27:00 79 /min Un[facility] Respiratory rate 2022-01-20 02:27:00 12 /min [facility] Oxygen saturation in Arterial blood by Pulse oximetry 2022-01-20 02:27:00 98 /min [facility] Body temperature 2022-01-19 22:19:00 36.44 Theresa [facility] Body weight 2022-01-19 22:19:00 60.328 kg [facility] BMI 2022-01-19 22:19:00 23.56 kg/m2 [facility] Systolic blood pressure 2021-12-30 20:52:00 134 mm[Hg] [facility] Diastolic blood pressure 2021-12-30 20:52:00 76 mm[Hg] [facility] Heart rate 2021-12-30 20:52:00 67 /min Un[facility] Body temperature 2021-12-30 20:26:00 36.67 Theresa [facility] Oxygen saturation in Arterial blood by Pulse oximetry 2021-12-30 20:26:00 99 /min [place] [facility] Respiratory rate 2021-12-30 16:21:00 18 /min [facility] Body weight 2021-12-30 08:27:00 60.464 kg [facility] BMI 2021-12-30 08:27:00 23.61 kg/m2 [facility] Body height 2021-12-29 01:29:00 160 cm [facility] Procedures Procedure Date / Time Performed Performing Clinician Source TROPONIN I 2023-12-13 03:32:00 Rafael Byrd [facility] XR CHEST 1 VW 2023-12-13 02:18:14 Rafael Byrd [facility] LIPASE 2023-12-13 02:07:00 Rafael Byrd [facility] TROPONIN I 2023-12-13 02:07:00 Rafael Byrd [facility] COMP. METABOLIC PANEL ([id number]) 2023-12-13 02:07:00 Rafael Byrd [facility] CBC WITH DIFF 2023-12-13 02:07:00 Rafael Byrd [facility] XR CHEST 1 VW 2023-11-05 20:09:00 Sulaiman Hawkins [facility] LIPASE 2023-11-05 20:01:00 Sulaiman Hawkins [facility] MAGNESIUM 2023-11-05 20:01:00 Sulaiman Hawkins [facility] TROPONIN I 2023-11-05 20:01:00 [facility] COMP. METABOLIC PANEL ([id number]) 2023-11-05 20:01:00 Sulaiman Hawkins [facility] CBC WITH DIFF 2023-11-05 20:01:00 Sulaiman Hawkins [facility] N-TERMINAL PRO-BNP 2023-11-05 20:01:00 Sulaiman Hawkins [facility] MAGNESIUM 2022-11-11 19:05:00 Jessica [facility] BASIC METABOLIC PANEL (NA, K, CL, CO2, GLUCOSE, BUN, CREATININE, CA) 2022-11-11 19:05:[facility] 2022-11-11 19:05:00 Jessica [facility] CBC WITH DIFF 2022-11-11 19:05:00 Hemant Klein [facility] POCT GLUCOSE (AUTOMATED) 2022-08-11 13:36:00 Arvind Prado [facility] PHOSPHORUS 2022-08-11 10:35:00 [facility] MAGNESIUM 2022-08-11 10:35:00 [facility] AMMONIA, PLASMA 2022-08-11 10:35:00 Jessica Prado [facility] COMP. METABOLIC PANEL ([id number]) 2022-08-11 10:35:00 Eve [facility] CBC WITH DIFF 2022-08-11 10:35:00 Oswald Murphy [facility] POCT GLUCOSE (AUTOMATED) 2022-08-11 [...] [facility] URINALYSIS 2022-08-10 05:46:00 [facility]coll [facility] URINE DRUG (IMMUNOASSAY) - COMPREHENSIVE DRUG SCREEN W/O REFLEX 2022-08-10 05:45:00 Rayray Driscoll [facility] CREATINE KINASE 2022-08-10 05:16:00 [facility]22-08-10 05:16:00 [facility] MAGNESIUM 2022-08-10 05:16:00 Rayray Driscoll [facility] TROPONIN I 2022-08-10 05:16:00 Rayray Driscoll [facility] COMP. METABOLIC PANEL ([id number]) 2022-08-10 05:16:00 Rayray Driscoll [facility] ETHANOL 2022-08-10 05:16:00 Rayray Driscoll [facility] CBC WITH DIFF 2022-08-10 05:16:00 Rayray Driscoll [facility] N-TERMINAL PRO-BNP 2022-08-10 05:16:00 Rayray Driscoll [facility] CRITICAL CARE 2022-08-10 04:52:00 Rayray Driscoll [facility] XR CHEST 1 VW 2022-04-06 14:51:50 Diya Chowdhury [facility] LIPASE 2022-04-06 14:42:00 Diya Chowdhury Un [facility] TROPONIN I 2022-04-06 14:42:00 Diya Chowdhury [facility] COMP. METABOLIC PANEL ([id number]) 2022-04-06 14:42:00 Diya Chowdhury [facility] CBC WITH DIFF 2022-04-06 14:42:00 Diya Chowdhury [facility] PROTHROMBIN TIME / INR 2022-04-06 14:42:00 Diya Chowdhury [facility] ACTIVATED PARTIAL THRMPLAS NELDA 2022-04-06 14:42:00 Luciana [facility] LACTIC ACID WHOLE BLOOD 2022-01-20 00:22:00 Leticia Baldwin [facility] URINE DRUG (IMMUNOASSAY) - COMPREHENSIVE DRUG SCREEN 2022-01-19 23:10:00 Leticia Baldwin [facility] URINALYSIS 2022-01-19 23:10:00 Leticia Baldwin [facility] TROPONIN I 2022-01-19 23:00:00 [facility] COMP. METABOLIC PANEL ([id number]) 2022-01-19 23:00:00 Leticia Baldwin [facility] LITHIUM 2022-01-19 23:00:00 Let[facility] ETHANOL 2022-01-19 23:00:00 Let[facility] CBC WITH DIFF 2022-01-19 23:00:00 Leticia Baldwin [facility] COVID-19 (ID NOW RAPID TESTING) 2022-01-19 23:00:00 Leticia Baldwin [facility] CT HEAD WO CONTRAST 2022-01-19 22:49:00 Leticia Baldwin [facility] XR CHEST 1 VW 2022-01-19 22:41:00 Leticia Baldwin [facility] POCT GLUCOSE (AUTOMATED) 2022-01-19 22:25:00 Leticia Baldwin [facility] POCT GLUCOSE (AUTOMATED) 2021-12-30 21:55:00 Arvind Prado [facility] POCT GLUCOSE (AUTOMATED) 2021-12-30 16:21:00 Arvind Prado [facility] POCT GLUCOSE (AUTOMATED) 2021-12-30 12:30:00 Arvind Prado [facility] HEPATIC FUNCTION PANEL ([id number]) (ALB,T.PRO,BILI T,BU/BC,ALT,AST,ALK PHOS) 2021-12-30 09:28:00 Maira Gaitan [...] [facility] TROPONIN I 2021-12-29 09:42:00 [facility] TROPONIN I 2021-12-29 04:55:[address] [facility] [address] HEAD WO CONTRAST 2021-12-28 21:18:22 Poppy Renteria [facility] AMMONIA, PLASMA 2021-12-28 21:00:00 Pia Renteria [facility] COVID-19 (ID NOW RAPID TESTING) 2021-12-28 20:42:00 Pia Renteria [facility] LAB ONLY COVID INTERPRETATION 2021-12-28 20:42:00 Pia Renteria [facility] URINE DRUG (IMMUNOASSAY) - COMPREHENSIVE DRUG SCREEN W/O REFLEX 2021-12-28 20:42:00 Pia Renteria [facility] URINALYSIS 2021-12-28 20:40:00 Pia Renteria [facility] N-TERMINAL PRO-BNP 2021-12-28 20:40:00 Corina Renteria [facility] TROPONIN I 2021-12-28 20:40:00 Pia Renteria [facility] THYROID STIMULATING HORMONE 2021-12-28 20:40:00 Jessica Prado [facility] COMP. METABOLIC PANEL ([id number]) 2021-12-28 20:40:00 Pia Renteria [facility] LIPID PANEL ([id number])(TOTAL CHOLESTEROL, TRIGLYCERIDES, HDL) 2021-12-28 20:40:00 Demetrius Langford [facility] ETHANOL 2021-12-28 20:40:00 Demetrius Langford [facility] CBC WITH DIFF 2021-12-28 20:40:00 Pia Renteria [facility] GLYCOSYLATED HEMOGLOBIN (A1C) 2021-12-28 20:40:00 Jessica Prado [facility] PROTHROMBIN TIME / INR 2021-12-28 20:40:00 Lesly Renteria [facility] XR CHEST 1 VW 2021-12-28 20:16:00 Pia Renteria [facility] HB ECG ROUTINE & RHYTHM STRIP 2021-12-28 20:04:59 Pia Renteria [facility] Encounters Start Date/Time End Date/Time Encounter Type Admission Type Attending [facility] Facility Care Department Encounter ID Source 2021-09-17 16:45:00 Inpatient [facility] [id number] [facility] 2020-06-06 16:07:00 Inpatient [facility] [id number] 2020-06-06 06:20:00 Inpatient [facility] [id number] 2020-06-05 19:35:00 Inpatient [facility] [id number] [facility] 2020-05-23 19:53:00 Inpatient [facility] [id number] [facility] 2020-05-23 19:53:00 Inpatient [facility] [id number] [facility] 2023-12-12 20:44:00 2023-12-13 00:22:00 Emergency Rafael Byrd [facility] 1.2.840.114 350.1.13.10 4.2.7.2.686 [id number] [facility] 2023-11-05 14:54:00 2023-11-05 16:27:00 Emergency Sulaiman Hawkins [facility] 1.2.840.114 350.1.13.10 4.2.7.2.686 [id number] [facility] 2022-11-11 13:50:00 2022-11-11 16:07:00 Emergency X HEMANT KLEIN [facility] ERT [id number] [facility] 2022-11-11 13:50:00 2022-11-11 16:07:00 Emergency Hemant Klein [facility] 1.2.840.114 350.1.13.10 4.2.7.2.686 [id number] [facility] 2022-10-14 20:59:00 2022-10-14 20:59:00 Emergency [facility] [id number] 2022-10-14 20:59:00 2022-10-14 20:59:00 Emergency Emergency Pan Pinto [facility] [id number] [facility] 2022-08-09 22:59:00 2022-08-11 13:02:00 Outpatient X JESSICA PRADO [facility] [id number] [facility] 2022-08-09 22:59:00 2022-08-11 13:02:00 Emergency Mukund DriscollJessica Avilez [facility] 1.2.840.114 350.1.13.10 4.2.7.2.686 [id number] [facility] 2022-04-06 09:38:00 2022-04-06 11:42:00 Emergency X DIYA CHOWDHURY [facility] ERT [id number] [facility] 2022-04-06 09:38:00 2022-04-06 11:42:00 Emergency Toddjose l Diya [facility] 1.2.840.114 350.1.13.10 4.2.7.2.686 [id number] [facility] 2022-03-07 12:38:00 2022-03-07 12:38:00 Emergency [facility] [id number] 2022-03-07 12:38:00 2022-03-07 12:38:00 Emergency Emergency Fidel Cuellar [facility] [id number] [facility] 2022-01-19 17:18:00 2022-01-19 22:00:00 Emergency X DIRK YARBROUGH [facility] ERT [id number] [facility] 2022-01-19 17:18:00 2022-01-19 22:00:00 Emergency Nicolasa Leticia Dirk Sutton [facility] 1.2.840.114 350.1.13.10 4.2.7.2.686 [id number] [facility] 2021-12-31 00:00:00 2021-12-31 00:00:00 Transition of Care Bandar Faye MIKMarlon MASSIEL NAVARRO 1.2.840.114 350.1.13.10 4.2.7.2.686 [id number] [facility] 2021-12-28 14:53:00 2021-12-30 17:42:00 Inpatient X JESSICA PRADO [facility] [id number] [facility] 2021-12-28 14:53:00 2021-12-30 17:42:00 Hospital Encounter Pia Renteria Jelani [facility] 1.2.840.114 350.1.13.10 4.2.7.2.686 [id number] [facility] 2021-09-17 16:47:00 2021-09-17 16:47:00 Emergency [facility] [id number] 2020-06-06 16:07:00 2020-06-06 16:07:00 Emergency [facility] [id number] [facility] Results Test Description Test Time Test Comments Results Result Co mments Source [facility] [id number] 02:57:27* Test Item Value Reference Range Interpretation Comme nts TROPONIN I (test code = 0539989363) 0.003 ng/mL <=0.034 JUAN ALBERTO (test code [...] of biotin. Lab Interpretation (test code = 52053-7) Normal [facility]. METABOLIC PANEL (07795)2023-12-13 02:46:25* Test Item Value Reference Range Interpretation Comme nts NA (test code = 3582768495) 144 mmol/L 135-145 K (test code = 2855476177) 3.9 mmol/L 3.5-5.0 CL (test code = 5099303881) 110 mmol/L 98-108 H CO2 TOTAL (test code = 3832141153) 20 mmol/L 23-31 L AGAP (test code = 6144761442) 14 2-16 BUN (test code = 9917988173) 13 mg/dL 7-23 GLUCOSE (test code = 8117493465) 163 mg/dL 70-110 H CREATININE (test code = 2160-0) 0.63 mg/dL 0.60-1.25 TOTAL BILI (test code = 5316652510) 0.3 mg/dL 0.1-1.1 CALCIUM (test code = 9083378819) 9.0 mg/dL 8.6-10.6 T PROTEIN (test code = 4717826707) 7.2 g/dL 6.3-8.2 ALBUMIN (test code = 9169775863) 4.1 g/dL 3.5-5.0 ALK PHOS (test code = 4438887640) 129 U/L 34-122 H ALTv (test code = 1742-6) 15 U/L 5-50 AST(SGOT) (test code = 1437509814) 34 U/L 13-40 eGFR (test code = 91632-6) 113.7 mL/min/1.73m2 CKD-EPI eGFR (2020). Assuming creatinine has been stable day-to-day for at least three months, the eGFR indicates Category G1 (>= 90 mL/min/1.73 m2) Lab Interpretation (test code = 73588-9) [facility]normal [facility], [id number] 02:45:25* Test Item Value Reference Range Interpretation Comme nts LIPASE (test code = 5234119465) 47 U/L 0-220 Lab Interpretation (test cod e = 99874-2) Normal [facility] Center[facility] CHE[facility] 1 [id number] 02:40:35History: chest pain . Exam: XR CHEST 1 VW Date: 12/12/2023 9:15 PM Ordering provider: RAFAEL BYRD Technical quality: Adequate Comparison: 11/05/2023. Findings: Frontal view of the chest is obtained. The cardiac silhouette is normal in size. No evidence of infiltrate,pleural effusion, CHF, or pneumothorax.[facility] CenterCBC WITH [id number] 02:33:48* Test Item Value Reference Range Interpretation [...] 33.2 g/dL 31.2-35.0 RDW-SD (test code = 34464-8) 54.4 fL 38.5-51.6 H RDW-CV (test code = 788-0) 15.9 % 12.1-15.4 H PLT (test code = 777-3) 318 150-328 MPV (test code = 82933-3) 8.5 fL 9.8-13.0 L NRBC/100 WBC (test code = 8647619219) 0.0 0.0-10.0 NRBC x10^3 (test code = 8033639718) See_Comment [Automated messa ge] The system which generated this result transmitted reference range: 10*3/?L. The reference range was not used to interpret this result as normal/abnormal. GRAN MAT (NEUT) % (test code = 770-8) 50.1 % IMM GRAN % (test code = 0109013639) 0.40 % LYMPH % (test code = 736-9) 37.6 % MONO % (test code = 5905-5) 6.8 % EOS % (test code = 713-8) 4.1 % BASO % (test code = 706-2) 1.0 % GRAN MAT x10^3(ANC) (test code = 0524264517) 3.66 10*3/uL 1.99-6.95 IMM GRAN x10^3 (test code = 1074441224) 0.03 10*3/uL 0.00-0.06 LYMPH x10^3 (test code = 731-0) 2.75 10*3/uL 1.09-3.23 MONO x10^3 (test code = 742-7) 0.50 10*3/uL 0.36-1.02 EOS x10^3 (test code = 711-2) 0.30 10*3/uL 0.06-0.53 BASO x10^3 (test code = 704-7) 0.07 10*3/uL 0.01-0.09 Lab Interpretation (test code = 00188-1) Abnormal [facility] 1 [id number] 20:15:30HISTORY: Chest pain. TECHNIQUE: Portable AP view of the chest is obtained. Comparison is beingmade with 04/06/2022 study. FINDINGS: No acute pneumonia. No pneumothorax or pleural effusion orpulmonarycongestion detected. Cardiac size is within normal limits.Prominent osteophytes are seen along right left vertebral margins at middleand lower thoracic spines. CONCLUSIONS: No signs of acute cardiopul monary disease.[facility] CenterETHANOL2023-05-23 19:45:56 ALCOHOL<10mg/dL11/11/2022 2:45 PM [facility]<10 Kpgbyxub69-380 Toxic>100 Depression of FLEET MANAGER>400 [facility] (NA, K, CL, CO2, GLUCOSE, BUN, CREATININE, CA)2022-11-11 19:41:47* Test Item Value Reference Range Interpretation Comme nts NA (test code = 1971665748) 138 mmol/L 135-145 K (test code = 2155077596) 4.8 mmol/L 3.5-5.0 CL (test code = 5769184686) 103 mmol/L 98-108 CO2 TOTAL (test code = 4412507127) 26 mmol/L 23-31 AGAP (test code = 6986475575) 9 2-16 BUN (test code = 1153909008) 17 mg/dL 7-23 GLUCOSE (test code = 4246008238) 219 mg/dL 70-110 H CREATININE (test code = 8172913665) 0.72 mg/dL 0.60-1.25 CALCIUM (test code = 9913751984) 10.0 mg/dL 8.6-10.6 eGFR (test code = 5467983767) 114.6 mL/min/1.73m2 JUAN ALBERTO (test code = [...] imaging tests). Lab Interpretation (test code = 17408-3) Abnormal [facility] CenterMAGNESIUM2023-05-23 19:41:47* Test Item Value Reference Range Interpretation Comme nts MAGNESIUM (test code = 4935771914) 1.8 mg/dL 1.7-2.4 Lab Interpretation (test cod e = 76537-6) Normal [facility] CenterCB WITH [id number] 19:25:26* Test Item Value Reference Range Interpretation Comme nts WBC (test code = 6690-2) 6.82 See_Comment [Automated demandmarta PeopleMatter] The system which generated this result transmitted reference range: 4.20 - 10.70 10*3/?L. The reference range was not used to interpret this result as normal/abnormal. RBC (test code = 789-8) 4.98 See_Comment [Automated demandmarta PeopleMatter] The system which generated this result transmitted [...] 33.9 g/dL 31.2-35.0 RDW-SD (test code = 11349-9) 46.0 fL 38.5-51.6 RDW-CV (test code = 788-0) 13.5 % 12.1-15.4 PLT (test code = 777-3) 237 See_Comment [Automated demandmarta PeopleMatter] The system which generated this result transmitted reference range: 150 - 328 10*3/?L. The reference range was not used to interpret this result as normal/abnormal. MPV (test code = 59654-1) 8.9 fL 9.8-13.0 L NRBC/100 WBC (test code = 6345637491) 0.0 See_Comment [Automated me ssage] The system which generated this result transmitted reference range: 0.0 - 10.0 /100 WBCs. The reference range was not used to interpret this result as normal/abnormal. NRBC x10^3 (test code = 6247325315) See_Comment [Automated messa ge] The system which generated this result transmitted reference range: 10*3/?L. The reference range was not used to interpret this result as normal/abnormal. GRAN MAT (NEUT) % (test code = 770-8) 71.2 % IMM GRAN % (test code = 1511156976) 0.30 % LYMPH % (test code = 736-9) 18.2 % MONO % (test code = 5905-5) 8.4 % EOS % (test code = 713-8) 1.0 % BASO % (test code = 706-2) 0.9 % GRAN MAT x10^3(ANC) (test code = 2036478719) 4.86 10*3/uL 1.99-6.95 IMM GRAN x10^3 (test code = 9935466631) 0.00-0.06 LYMPH x10^3 (test code = 731-0) 1.24 10*3/uL 1.09-3.23 MONO x10^3 (test code = 742-7) 0.57 10*3/uL 0.36-1.02 EOS x10^3 (test code = 711-2) 0.07 10*3/uL 0.06-0.53 BASO x10^3 (test code = 704-7) 0.06 10*3/uL 0.01-0.09 Lab Interpretation (test code = 81325-8) Abnormal [facility] Center[facility], Urinalysis Rflx Cult/Gmpdy5834-84-29 22:20:00* Test Item Value Reference Range Interpretation Comme nts Color,Urine (test code = UCOL) Yellow Yellow Clarity,Urine (test code = UCLAR) Clear Clear Ph, Urine (test code = UPH) 7.0 5.0-9.0 N Specific [place],Urine (test code = USG) 1.020 1.005-1.030 N [...] code = ULEU) Negative mg/dL Negative Drug Screen,Txygv5679-07-12 22:20:00* Test Item Value Reference Range Interpretation [...] UPROP) Negative Negative Complete Blood Count Auto Drhh6355-29-21 21:21:00* Test Item Value Reference Range Interpretation [...] code = NRBCP) 0 % Comprehensive Metabolic Esurk2275-89-61 21:21:00* Test Item Value Reference Range Interpretation [...] a race coefficient. Additional information canbe found at:[email or web address]_[email or web address] 5.pdf ([email or web address]) [Automated message] The system [...] = ALP) 134 U/L 46-116 H Ethanol Nlgih1800-58-39 21:21:00* Test Item Value Reference Range Interpretation Comme nts Ethanol (test code = ETOH) < 3 mg/dL The pharmacologi yudy response to blood alcohol levels mayvary from individual to individual. The fatal concentrationhas been reported to be >400mg/dL. POCT GLUCOSE (AUTOMATED)2022-08-11 13:40:35* Test Item Value Reference Range Interpretation Comme nts POCT GLU (test code = 6620195429) 121 mg/dL 70-110 H Lab Interpretation (test cod e = 54369-7) Abnormal [facility] GLUCOSE (AUTOMATED)2022-08-11 02:18:58* Test Item Value Reference Range Interpretation Comme nts POCT GLU (test code = 2032292290) 183 mg/dL 70-110 H Lab Interpretation (test cod e = 73794-3) Abnormal [facility] GLUCOSE (AUTOMATED)2022-08-10 23:16:11* Test Item Value Reference Range Interpretation Comme nts POCT GLU (test code = 0103369655) 176 mg/dL 70-110 H Lab Interpretation (test cod e = 55878-1) Abnormal [facility] GLUCOSE (AUTOMATED)2022-08-10 18:22:51* Test Item Value Reference Range Interpretation Comme nts POCT GLU (test code = 8517073360) 165 mg/dL 70-110 H Lab Interpretation (test cod e = 83818-8) Abnormal [facility] GLUCOSE (AUTOMATED)2022-08-10 14:18:05* Test Item Value Reference Range Interpretation Comme nts POCT GLU (test code = 1369925044) 138 mg/dL 70-110 H Lab Interpretation (test cod e = 30113-7) Abnormal [facility] GLUCOSE (AUTOMATED)2022-08-10 11:01:21* Test Item Value Reference Range Interpretation Comme nts POCT GLU (test code = 9823938995) 143 mg/dL 70-110 H Lab Interpretation (test cod e = 73508-3) Abnormal [facility] CenterTROPONIN [id number] 06:51:18* Test Item Value Reference Range Interpretation Comme nts TROPONIN I (test code = 8604897323) 0.008 ng/mL <=0.034 JUAN ALBERTO (test code [...] of biotin. Lab Interpretation (test code = 39727-1) Normal [facility] CenterN-TERMINAL LLY-[id number] 06:47:37* Test Item Value Reference Range Interpretation Comme nts NT-proBNP (test code = 8884585644) 37 pg/mL <=125 JUAN ALBERTO (test code = JUAN ALBERTO) Biotin has been reported to cause a negative bias, interpret results relative to patient's use of biotin. Lab Interpretation (test code = 80227-8) Normal [facility] CenterETHANOL2023-02-19 06:25:52 ALCOHOL<10mg/dL08/10/2022 12:25 AM [facility]10 Udsvuaeb08-515 Toxic>100 Depression of FLEET MANAGER>400 Fatalities ReportedB[facility] Medical CenterCOM. METABOLIC PANEL (17523)2022-08-10 06:19:15* Test Item Value Reference Range Interpretation Comme nts NA (test code = 8704906517) 135 mmol/L 135-145 K (test code = 3451570802) 4.3 mmol/L 3.5-5.0 CL (test code = 4999706680) 98 mmol/L 98-108 CO2 TOTAL (test code = 2674500453) 30 mmol/L 23-31 AGAP (test code = 4626396900) 7 2-16 BUN (test code = 4047490935) 11 mg/dL 7-23 GLUCOSE (test code = 9140106544) 153 mg/dL 70-110 H CREATININE (test code = 1775333716) 0.77 mg/dL 0.60-1.25 TOTAL BILI (test code = 4616286706) 0.9 mg/dL 0.1-1.1 CALCIUM (test code = 6967065263) 10.0 mg/dL 8.6-10.6 T PROTEIN (test code = 5327443180) 7.7 g/dL 6.3-8.2 ALBUMIN (test code = 9689795012) 4.6 g/dL 3.5-5.0 ALK PHOS (test code = 6972646861) 92 U/L 34-122 ALTv (test code = 1742-6) 35 U/L 5-50 AST(SGOT) (test code = 1654728588) 42 U/L 13-40 H eGFR (test code = 5893748164) 106.1 mL/min/1.73m2 JUAN ALBERTO (test code = [...] imaging tests). Lab Interpretation (test code = 65449-9) Abnormal [facility] CenterMAGNESIUM2023-02-19 06:19:15* Test Item Value Reference Range Interpretation Comme nts MAGNESIUM (test code = 1039851593) 2.2 mg/dL 1.7-2.4 Lab Interpretation (test cod e = 79450-7) Normal [facility] CenterLIPASE2023-02-19 06:18:55* Test Item Value Reference Range Interpretation Comme nts LIPASE (test code = 5837625628) 18 U/L 0-220 Lab Interpretation (test cod e = 56086-7) Normal [facility] CenterCREATINE NSILHP8100-77-49 06:18:55* Test Item Value Reference Range Interpretation Comme nts CK (test code = 0879754210) 174 U/L 33-194 Lab Interpretation (test cod e = 87492-4) Normal [facility] CenterCBC WITH TOQO3640-01-39 06:02:35* Test Item Value Reference Range Interpretation [...] 32.4 g/dL 31.2-35.0 RDW-SD (test code = 34418-4) 50.2 fL 38.5-51.6 RDW-CV (test code = 788-0) 14.3 % 12.1-15.4 PLT (test code = 777-3) 241 See_Comment [Automated messa ge] The system which generated this result transmitted reference range: 150 - 328 10*3/?L. The reference range was not used to interpret this result as normal/abnormal. MPV (test code = 40411-9) 8.6 fL 9.8-13.0 L NRBC/100 WBC (test code = 9069861174) 0.0 See_Comment [Automated me ssage] The system which generated this result transmitted reference range: 0.0 - 10.0 /100 WBCs. The reference range was not used to interpret this result as normal/abnormal. NRBC x10^3 (test code = 4945925690) See_Comment [Automated messa ge] The system which generated this result transmitted reference range: 10*3/?L. The reference range was not used to interpret this result as normal/abnormal. GRAN MAT (NEUT) % (test code = 770-8) 63.9 % IMM GRAN % (test code = 7648058233) 0.50 % LYMPH % (test code = 736-9) 17.6 % MONO % (test code = 5905-5) 16.5 % EOS % (test code = 713-8) 0.7 % BASO % (test code = 706-2) 0.8 % GRAN MAT x10^3(ANC) (test code = 2918189864) 4.79 10*3/uL 1.99-6.95 IMM GRAN x10^3 (test code = 7066275946) 0.04 10*3/uL 0.00-0.06 LYMPH x10^3 (test code = 731-0) 1.32 10*3/uL 1.09-3.23 MONO x10^3 (test code = 742-7) 1.24 10*3/uL 0.36-1.02 H EOS x10^3 (test code = 711-2) 0.05 10*3/uL 0.06-0.53 L BASO x10^3 (test code = 704-7) 0.06 10*3/uL 0.01-0.09 Lab Interpretation (test code = 96994-2) Abnormal [facility] [id number] 15:15:32* Test Item Value Reference Range Interpretation Comments TROPONIN I (test code = 0355941708) 0.007 ng/mL See_Comment [Automated message] The system [...] of biotin. Lab Interpretation (test code = 70073-7) Normal [facility] CenteraPTT2022-10-16 15:08:29* Test [...] 30 seconds. Lab Interpretation (test code = 58420-9) Normal [facility] CenterPROTHROMBIN TIME / [id number] 15:06:28* Test Item Value Reference Range Interpretation Comme [facility] PROTIME PATIENT (test code = 5964-2) See_Comment [Automated messa ge] The system which generated this result transmitted reference range: 12.0 - 14.7 Seconds. The reference range was not used to interpret this result as normal/abnormal. INR (test code = 6301-6) Normal INR <1.1; Warfarin Therapeutic range 2.0 to 3.0 or 2.5 to 3.5, depending upon the indications. Lab Interpretation (test code = 08065-8) Normal [facility] CenterCOMP. METABOLIC PANEL (27696)2022-04-06 15:03:31* Test Item Value Reference Range Interpretation Comme [facility] NA (test code = 9103285710) 136 mmol/L 135-145 K (test code = 1961223298) 5.0 mmol/L 3.5-5 CL (test code = 3226427713) 104 mmol/L 98-108 CO2 TOTAL (test code = 9051727838) 21 mmol/L 23-31 L AGAP (test code = 4941994050) 2-16 BUN (test code = 9695364408) 11 mg/dL 7-23 GLUCOSE (test code = 5335914335) 162 mg/dL 70-110 H CREATININE (test code = 5472284776) 0.52 mg/dL 0.6-1.25 L TOTAL BILI (test code = 4996144197) 1.0 mg/dL 0.1-1.1 CALCIUM (test code = 5668686567) 9.3 mg/dL 8.6-10.6 T PROTEIN (test code = 8718327263) 7.4 g/dL 6.3-8.2 ALBUMIN (test code = 7539346367) 4.4 g/dL 3.5-5 ALK PHOS (test code = 6176138676) 134 U/L 34-122 H ALTv (test code = 1742-6) 17 U/L 5-50 AST(SGOT) (test code = 3837009546) 38 U/L 13-40 eGFR (test code = 2930774202) mL/min/1.73m2 JUAN ALBERTO (test code = JUAN [...] imaging tests). Lab Interpretation (test code = 13259-5) Abnormal [facility] CenterLIPASE, BPCXA3440-62-65 15:03:31* Test Item Value Reference Range Interpretation Comme nts LIPASE (test code = 9945149850) 29 U/L 0-220 Lab Interpretation (test cod e = 10065-3) Normal [facility] CenterCBC WITH TIRM5122-10-59 14:51:49* Test Item Value Reference Range Interpretation Comme nts WBC (test code = 6690-2) See_Comment [Automated demandmarta ge] The system which generated this result transmitted reference range: 4.20 - 10.70 10*3/?L. The reference range was not used to interpret this result as normal/abnormal. RBC (test code = 789-8) See_Comment [Automated demandmarta ge] The system which generated this result [...] 34.0 g/dL 31.2-35 RDW-SD (test code = 47618-9) 45.9 fL 38.5-51.6 RDW-CV (test code = 788-0) 13.3 % 12.1-15.4 PLT (test code = 777-3) See_Comment [Automated demandmarta ge] The system which generated this result transmitted reference range: 150 - 328 10*3/?L. The reference range was not used to interpret this result as normal/abnormal. MPV (test code = 41477-6) 8.4 fL 9.8-13 L NRBC/100 WBC (test code = 8553529735) See_Comment [Automated me ssage] The system which generated this result transmitted reference range: 0.0 - 10.0 /100 WBCs. The reference range was not used to interpret this result as normal/abnormal. NRBC x10^3 (test code = 9426817342) See_Comment [Automated messa ge] The system which generated this result transmitted reference range: 10*3/?L. The reference range was not used to interpret this result as normal/abnormal. GRAN MAT (NEUT) % (test code = 770-8) 63.0 % IMM GRAN % (test code = 4375857172) 0.50 % LYMPH % (test code = 736-9) 25.2 % MONO % (test code = 5905-5) 9.8 % EOS % (test code = 713-8) 0.3 % BASO % (test code = 706-2) 1.2 % GRAN MAT x10^3(ANC) (test code = 7806249414) 3.73 10*3/uL 1.99-6.95 IMM GRAN x10^3 (test code = 1136250909) 0.03 10*3/uL 0-0.06 LYMPH x10^3 (test code = 731-0) 1.49 10*3/uL 1.09-3.23 MONO x10^3 (test code = 742-7) 0.58 10*3/uL 0.36-1.02 EOS x10^3 (test code = 711-2) 0.06-0.53 L BASO x10^3 (test code = 704-7) 0.07 10*3/uL 0.01-0.09 Lab Interpretation (test code = 12573-4) Abnormal [facility], Urinalysis Rflx Cult/Yubpf9369-86-90 13:53:00* Test Item Value Reference Range Interpretation Comme nts Color,Urine (test code = UCOL) Yellow Yellow Clarity,Urine (test code = UCLAR) Cloudy Clear A Ph, Urine (test code = UPH) 7.5 5.0-9.0 N Specific [place],Urine (test code = USG) 1.025 1.005-1.030 N [...] = ULEU) Negative mg/dL Negative UF REFLEXDrug Screen,Pxlot6473-32-50 13:53:00* Test Item Value Reference Range Interpretation [...] UPROP) Negative Negative Complete Blood Count Auto Rosh0977-99-84 12:58:00* Test Item Value Reference Range Interpretation [...] = NRBCP) 0 % Coronavirus PCR, COVID19 Jwjxv1496-93-90 12:58:00* Test Item Value Reference Range Interpretation Comme nts Coronavirus PCR, COVID19 Rapid (test code = SARSCOV2) Coronavirus PCR, COVID19 Rapid (test code = APPGDNW68.1) Reference Range: Negative SARS-CoV-2 PCR Result: (test code = SARS-CoV-2 PCR Result:) Negative by RT-PCR COVID-19 Status: AsymptomaticComprehensive Metabolic Pxltb0457-80-27 12:58:00* Test Item Value Reference Range Interpretation [...] = ALP) 144 U/L 46-116 H Ethanol Hxymf6885-36-34 12:58:00* Test Item Value Reference Range Interpretation Comme nts Ethanol (test code = ETOH) < 3 mg/dL The pharmacologi yudy response to blood alcohol levels mayvary from individual to individual. The fatal concentrationhas been reported to be >400mg/dL. DNIICGP4545-80-69 01:47:56* Test Item Value Reference Range Interpretation Comme nts Bowlus (test code = 1214143999) 0.7 mmol/L 0.6-1.2 JUAN ALBERTO (test code = JUAN ALBERTO) Toxic Range: ? Greater than 1.2 mmol/L Lab Interpretation (test code = 77392-2) [facility] Center[facility] [id number] 00:26:53* Test Item Value Reference Range Interpretation Comments TROPONIN I (test code = 0586017304) 0.002 ng/mL See_Comment [Automated message] The system [...] of biotin. Lab Interpretation (test code = 17037-2) [facility] 00:18:52 ALCOHOL<10mg/dL01/19/2022 7:18 PM [facility]10 Kotjxcah85-151 Toxic>100 Depression of FLEET MANAGER>400 Fatalities ReportedB[facility] CenterCOMP. METABOLIC PANEL (99288)2022-01-20 00:16:16* Test Item Value Reference Range Interpretation Comme nts NA (test code = 1550171441) 137 mmol/L 135-145 K (test code = 0670499343) 4.5 mmol/L 3.5-5 CL (test code = 8398221911) 103 mmol/L 98-108 CO2 TOTAL (test code = 8148110648) 26 mmol/L 23-31 AGAP (test code = 5702645115) 2-16 BUN (test code = 6453526521) 10 mg/dL 7-23 GLUCOSE (test code = 6080059771) 121 mg/dL 70-110 H CREATININE (test code = 5480024391) 0.65 mg/dL 0.6-1.25 TOTAL BILI (test code = 4704422607) 0.8 mg/dL 0.1-1.1 CALCIUM (test code = 3244989088) 11.4 mg/dL 8.6-10.6 H T PROTEIN (test code = [id number]) 7.2 g/dL 6.3-8.2 ALBUMIN (test code = 2265122812) 4.6 g/dL 3.5-5 ALK PHOS (test code = 4116958665) 112 U/L 34-122 ALTv (test code = 1742-6) 19 U/L 5-50 AST(SGOT) (test code = 1869764760) 26 U/L 13-40 eGFR (test code = 0425905268) mL/min/1.73m2 JUAN ALBERTO (test code = JUAN [...] imaging tests). Lab Interpretation (test code = 24108-6) Abnormal [facility] WITH [id number] 23:43:54* Test Item Value Reference Range Interpretation Comme nts WBC (test code = 6690-2) See_Comment [Automated [employer]marta ge] The system which generated this result transmitted reference range: 4.20 - 10.70 10*3/?L. The reference range was not used to interpret this result as normal/abnormal. RBC (test code = 789-8) See_Comment [Automated [employer] ge] The system which generated this result [...] 34.4 g/dL 31.2-35 RDW-SD (test code = 26162-9) 44.0 fL 38.5-51.6 RDW-CV (test code = 788-0) 12.6 % 12.1-15.4 PLT (test code = 777-3) See_Comment [Automated [employer] ge] The system which generated this result transmitted reference range: 150 - 328 10*3/?L. The reference range was not used to interpret this result as normal/abnormal. MPV (test code = 19322-9) 9.1 fL 9.8-13 L NRBC/100 WBC (test code = 9579764618) See_Comment [Automated [employer] ssage] The system which generated this result transmitted reference range: 0.0 - 10.0 /100 WBCs. The reference range was not used to interpret this result as normal/abnormal. NRBC x10^3 (test code = 1676977909) See_Comment [Automated [employer]mart[employer] ge] The system which generated this result transmitted reference range: 10*3/?L. The reference range was not used to interpret this result as normal/abnormal. GRAN MAT (NEUT) % (test code = 770-8) 69.8 % IMM GRAN % (test code = 8272851823) 0.40 % LYMPH % (test code = 736-9) 18.0 % MONO % (test code = 5905-5) 10.9 % EOS % (test code = 713-8) 0.1 % BASO % (test code = 706-2) 0.8 % GRAN MAT x10^3(ANC) (test code = 9205449395) 5.58 10*3/uL 1.99-6.95 IMM GRAN x10^3 (test code = 8259629474) 0.03 10*3/uL 0-0.06 LYMPH x10^3 (test code = 731-0) 1.44 10*3/uL 1.09-3.23 MONO x10^3 (test code = 742-7) 0.87 10*3/uL 0.36-1.02 EOS x10^3 (test code = 711-2) 0.06-0.53 L BASO x10^3 (test code = 704-7) 0.06 10*3/uL 0.01-0.09 Lab Interpretation (test code = 09103-2) Abnormal [facility] GLUCOSE (AUTOMATED)2022-01-19 22:27:41* Test Item Value Reference Range Interpretation Comme nts POCT GLU (test code = 7035162533) 123 mg/dL 70-110 H Lab Interpretation (test cod e = 48770-4) Abnormal [facility] GLUCOSE (AUTOMATED)2021-12-30 22:08:16* Test Item Value Reference Range Interpretation Comme nts POCT GLU (test code = 7394692870) 167 mg/dL 70-110 H Lab Interpretation (test cod e = 42012-3) Abnormal [facility] GLUCOSE (AUTOMATED)2021-12-30 16:50:40* Test Item Value Reference Range Interpretation Comme nts POCT GLU (test code = 5236234818) 154 mg/dL 70-110 H Lab Interpretation (test cod e = 68808-2) Abnormal [facility] GLUCOSE (AUTOMATED)2021-12-30 12:38:43* Test Item Value Reference Range Interpretation Comme nts POCT GLU (test code = 1793211409) 164 mg/dL 70-110 H Lab Interpretation (test cod e = 94743-2) Abnormal [facility] GLUCOSE (AUTOMATED)2021-12-30 02:14:58* Test Item Value Reference Range Interpretation Comme nts POCT GLU (test code = 9792477624) 220 mg/dL 70-110 H Lab Interpretation (test cod e = 75016-1) Abnormal [facility] GLUCOSE (AUTOMATED)2021-12-29 21:50:02* Test Item Value Reference Range Interpretation Comme nts POCT GLU (test code = 7077674681) 191 mg/dL 70-110 H Lab Interpretation (test cod e = 87390-1) Abnormal [facility] GLUCOSE (AUTOMATED)2021-12-29 20:15:01* Test Item Value Reference Range Interpretation Comme nts POCT GLU (test code = 4021517036) 163 mg/dL 70-110 H Lab Interpretation (test cod e = 43055-1) [facility]2021-12-29 19:12:22* Test Item Value Reference Range Interpretation Comme nts Height (test code = 8186579333) in Weight (test code = 3354976829) lbs Systolic BP (test code = 4772223000) mmHg Diastolic BP (test code = 7259875996) mmHg Heart Rate (test code = 5820447862) bpm BSA (test code = 9482200068) 1.62 m2 Ao root annulus (test code = 5357938130) 2.45 cm Ao root diam (test code = 4311303074) 2.45 cm Aortic root (test code = 7497912745) 2.45 cm ACS (test code = 6250842925) 1.66 cm LA size (test code = 5434045942) 3.2 cm LVOT diameter (test code = 7460653736) 1.95 cm LVIDD (test code = 5437348944) 3.60 cm IVS (test code = 9691903505) 0.94 cm Interventricular Septum Diastolic Thickness by 2D (test code = 5989860) 0.94 cm LVPWD (test code = 4890873668) 0.80 cm PW (test code = 7394897231) 0.80 cm 0.6-1.1 EF(Teich) (test code = 6437127216) 52.80 % LVIDS (test code = 8219277523) 2.60 cm FS (test code = 3735457631) 27 % EF - 2D (test code = 44929925) 52.80 % LAV(MOD-sp4) (test code = 5344761537) 16.80 mL MV Peak E Jovany (test code = 6370022409) 46.1 cm/s E wave decelartion time (test code = 4766892181) 0.31 s MV Peak A Jovany (test code = 8311441347) 58.1 cm/s E/A ratio (test code = 4893839787) ratio MV E/e' septal (test code = 8631180188) 5.7 cm/s Tapse (test code = 8668938193) 1.60 cm LVOT stroke volume (test code = 7137905189) 52.10 cm3 LVOT peak jovany (test code = 3734336918) 110.6 cm/s LVOT mn grad (test code = 7542297681) mmHg AV LVOT peak gradient (test code = 4846540135) mmHg LVOT peak VTI (test code = 3026531275) 17.4 cm LV V1 mean (test code = 6237418446) 66.10 cm/s Aortic valve mean velocity (test code = 3364386309) 73.0 cm/s Ao peak jovany (test code = 3238571070) 124.6 cm/s Ao VTI (test code = 4277093461) 18.6 cm AV area by cont VTI (test code = 8727136211) 2.8 cm2 AV area peak jovany (test code = 4205267899) 2.7 cm2 Ao max PG (test code = 9903690022) 6.20 mm[Hg] AV peak gradient (test code = 3726892914) mmHg AV valve area (test code = 6393207724) 2.80 cm2 AV mean gradient (test code = 8504297901) mmHg Radiology Study observation (narrative) (test code =

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
[2024-02-22 01:27] VITALS: TEMP 97.3
[2024-02-22 01:30] VITALS: BP 113/71; O2SAT 96
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
== END 2024-02-22 01:20 | disposition home or self-care (01) ==
LOC: ER 22:32
DX: F10.129 Alcohol abuse with intoxication, unspecified (principal); R43.9 Unspecified disturbances of smell and taste; M79.672 Pain in left foot; M79.671 Pain in right foot
CPT/HCPCS: 70450; 71045; 72125; 72170; 99284

== ENCOUNTER 2024-02-23 00:40 | Emergency (ER) | payer SELFPAY ==
--- OUTSIDE RECORDS SUMMARY | 2024-02-23 00:45 | XMS REPORT | Continuity of Care Document ---
Author Name Unknown Address [address] [facility] [place] [address] [facility] Address [address] [facility] [place] [address] Care Team Providers Care [employer]orer [employer] Name Role Phone Pcp-None Primary Care Physician Unavailab Rafael Thomas MD Attending Clinician [phone] Sulaiman Hawkins DO Attending Clinician [phone] HEMANT KLEIN Attending Clinician Unavailable Hemant Klein MD Attending Clinician [phone] Pan P[place] Attending Clinician Unavailab JESSICA Gallardo Attending Clinician Unavailable Rayray Driscoll MD Attending Clinician [phone] Jessica Prado MD Attending Clinician [phone] Oswald Murphy MD Attending Clinician [phone] DIYA CHOWDHURY Attending Clinician Unavailab Diya Mackey DO Attending Clinician [phone] Fidel Cuellar Attending Clinician Unavailable DIRK YARBROUGH Attending Clinician Unavailable Leticia Rowland Attending Clinician [phone] Dirk Yarbrough MD Attending Clinician [phone] Faye Portillo LVN Attending Clinician [phone] Pia Reddy Attending Clinician [phone] Vinnie Navarro Attending Clinician Unavailable OSWALD MURPHY Admitting Clinician Unavailable Oswald Murphy MD Admitting Clinician [phone] DIYA CHOWDHURY Admitting Clinician UnavailLeticia Gaytan Admitting Clinician Unavailable JESSICA PRADO Admitting Clinician Unavailable Jessica Prado MD Admitting Clinician [phone] Payers Payer Name Policy Type Policy Number Effective Date Expirati on Date Source Problems Condition Name Condition Details Condition Category Status Onset Date Resolution Date Last Treatment Date Treating Clinician Comments Source Alcohol withdrawal syndrome with complicati on Alcohol withdrawal syndrome with complicati on Disease Active 2-19 00:00: 00 [facility] Type 2 diabetes mellitus with other specified complicati on Type 2 diabetes mellitus with other specified complicati on Disease Active 12-29 00:00: 00 [facility] Dyslipidem ia Dyslipidem ia Disease Active 12-29 00:00: 00 [facility] Chest pain, unspecifie d type Chest pain, unspecifie d type Disease Active 7- 00:00: 00 [facility] Priapism Priapism Disease Active 2013-06- 00:00: 00 [facility] Allergies, Adverse Reactions, Alerts Allergy Name Allergy Type Status Severity Reaction(s) Onset Date Inactive Date Treating Clinician Comments Source No Known Drug Allergie s DA Active U 4-25 00:00: 00 [facility] No Known Drug Allergie s DA Active U 0 9-16 00:00: 00 [facility] No Known Drug Allergie s DA Active U 3-29 00:00: 00 [facility] No Known Drug Allergie s DA Active U 2019-06 2-16 00:00: 00 [facility] No Known Drug Allergie s DA Active U 2019-06 2-15 00:00: 00 [facility] No Known Drug Allergie s DA Active U 2019-06 00:00: 00 [facility] Trazodon e Propensi ty to adverse reaction s Active Other - See comments 10-06 00:00: 00 [facility] TRAZODON E DRUG INGREDI Active Other-Cmnt 10-06 00:00: 00 [facility] Social History Social Habit Start Date Stop Date Quantity Comments Source History of tobacco use Cigarette Smoker [facility] Alcoholic beverage intake 2023-11-07 00:00:00 2023-11-07 00:00:00 Current drinker of alcohol (finding) [facility] History of Social function 2023-11-07 00:00:00 2023-11-07 00:00:00 [facility] Exposure to SARS-CoV-2 (event) 2022-11-01 00:00:00 2022-11-11 13:57:00 Not sure [facility] Tobacco use and exposure 2022-08-10 00:00:00 2022-08-10 00:00:00 User of smokeless tobacco [facility] Alcohol intake 2022-08-10 00:00:00 2022-08-10 00:00:00 Current drinker of alcohol (finding) [facility] Tobacco Comment 2022-08-10 00:00:00 2022-08-10 00:00:00 1/2 a pack a day [facility] Sex assigned at 1970 00:00:00 1970 00:00:00 [facility] Smoking Status Start Date Stop Date Source Smokes tobacco daily 2022-08-10 00:00:00 [facility] Medications Ordered Medication Name Filled Medication Name Start Date Stop Date Current Medication? Ordering Clinician Indication Dosage Frequency Signature (SIG) Comments Components Source NaCl 0.9% (NS) bolus infusion 1,000 mL 11-11 19:45: 00 11-11 20:23 :00 No 1000mL at 999 mL/hr, 1,000 mL, IV Piggyback, ONCE, 1 dose, On Thu11/11/22 at 1445, STAT [facility] multivitami n tablet 1 tablet 08-12 15:00: 00 Yes 1{tbl} 1 tablet, Oral, DAILY, First dose on Thu08/12/22 at 0900, Until Discontinu ed, Routine [facility] foLIC acid (FOLATE) tablet 1 mg 08-12 15:00: 00 Yes 1mg 1 mg, Oral, DAILY, First dose on Thu08/12/22 at 0900, Until Discontinu ed, Routine [facility] foLIC acid 1 mg tablet 08-12 00:00: 00 09-12 04:59 :00 No [id number] 1mg Take 1 tablet by mouth in the morning for 30 days. [facility] oxazepam (SERAX) capsule 15 [...] Thu08/13/22 at 0600, Routine [Order 2 End] [facility] thiamine (VITAMIN B1) tablet 100 mg 08-11 16:15: 00 Yes 100mg 100 mg, Oral, DAILY, First dose on Thu08/11/22 at 1015, Until Discontinu ed, Routine [facility] enoxaparin (LOVENOX) injection 40 mg 08-10 23:00: 00 Yes 40mg 40 mg, Subcutaneo us, DAILY, First dose on Thu08/10/22 at 1700, Until Discontinu ed, Routine [facility] NaCl 0.9% (NS) IV infusion [...] Until Discontinu ed, 50 mL [facility] thiamine (VITAMIN B1) 100 mg in NaCl 0.9% (NS) piggyback 08-10 15:00: 00 08-10 16:08 :00 No 100mg IV Piggyback, DAILY, 1 dose, First dose on Thu08/10/22 at 0900, 50 mL [facility] LORazepam (ATIVAN) injection 2 mg [...] blood glucose is < 80 mg/dL, repeat.
[facility] glucagon (GLUCAGEN DIAGNOSTIC KIT) injection 1 mg 08-10 12:03: 20 Yes 1mg 1 mg, Intramuscu lar, PRN, Starting on Thu08/10/22 at 0603, Until Discontinu ed, JACIEL, Blood Glucose < or = 70 mg/dL and patient is NPO, unable to swallow or has mental changes. [facility] ondansetron (ZOFRAN (PF)) injection 4 mg 08-10 12:02: 53 Yes 4mg 4 mg, Slow IV Push, Q6HPRN, Starting on Thu08/10/22 at 0602, Until Discontinu ed, Routine, Nausea and Vomiting (N/V) [facility] ibuprofen (MOTRIN IB) tablet 200 mg 08-10 12:02: 45 Yes 200mg 200 mg, Oral, Q6HPRN, Starting on Thu08/10/22 at 0602, Until Discontinu ed, Routine, Pain (scale 1-3) [facility] NaCl 0.9% (NS) bolus infusion 1,000 mL 08-10 10:15: 00 08-10 13:00 :00 No 1000mL at 999 mL/hr, 1,000 mL, IV Infusion, ONCE, 1 dose, On Thu08/10/22 at 0415, STAT [facility] LORazepam (ATIVAN) injection 0.5 mg 08-10 09:15: 00 08-10 09:19 :00 No .5mg 0.5 mg, Slow IV Push, ONCE, 1 dose, On Thu08/10/22 at 0315, STAT [facility] LORazepam (ATIVAN) injection 1 mg 08-10 08:00: 00 08-10 07:05 :00 No 1mg 1 mg, Slow IV Push, ONCE NOW, 1 dose, On 08/10/22 at 0200, STAT [facility] thiamine (VITAMIN B1) injection 100 mg 08-10 06:45: 00 08-10 06:52 :00 No 100mg 100 mg, Intravenou s, ONCE, 1 dose, [facility]10/22 [facility] 0045[facility] 1 mg 08-10 05:15: 00 08-10 05:22 :00 No 1mg 1 mg, Slow IV Push, ONCE, 1 dose, On 08/09/22 at 2315, STAT [facility] ketorolac (TORADOL) injection 15 mg [...] Last dose on Thu12/31/21 at 1330, Routine [facility] multivitami n tablet 12-31 00:00: 00 Yes [id number] 1{tbl} Take 1 tablet by mouth in the morning. [facility] thiamine 100 mg tablet 12-31 00:00: 00 Yes [id number] 100mg Take 1 tablet by mouth in the morning. [facility] aspirin 81 mg chewable tablet 12-31 00:00: 00 Yes [id number] 81mg Take 1 tablet by mouth in the morning. [facility] foLIC acid 1 mg tablet 12-31 00:00: 00 01-31 04:59 :00 No [id number] 1mg Take 1 tablet by mouth in the morning for 30 days. [facility] metFORMIN 500 mg tablet 12-30 00:00: 00 Yes [id number] 500mg Take 1 tablet by mouth in the morning and 1 tablet in the evening. Take with meals. [facility] aspirin chewable tablet 81 mg 12-29 14:00: 00 Yes 81mg 81 mg, Oral, DAILY, First dose on Thu12/29/21 at 0900, Until Discontinu ed, Routine [facility] sulfur hexafluorid e microsphr (LUMASON) injection 5 mL 12-29 13:45: 00 12-29 13:45 :00 No [id number] 5mL 5 mL, Intravenou s, ONCE, 1 dose, On 12/29/21 at 0845, Routine
community board member approving Restricted medication : STEFANIE GORMAN [facility] enoxaparin (LOVENOX) injection 40 mg 12-29 13:00: 00 Yes 40mg 40 mg, Subcutaneo us, Q24H, First dose on Thu12/29/21 at 0800, Until Discontinu ed, Routine [facility] Sliding Scale Insulin - Lispro (HumaLOG) + Fsbg Testing 12-29 13:00: 00 Yes Subcutaneo us, TID MEALS+HS, First dose on Thu12/29/21 at 0800, Until Discontinu ed, Routine [facility] diazePAM (VALIUM) injection 10 mg 12-29 05:30: 00 12-29 04:40 :00 No 10mg 10 mg, Intravenou s, ONCE, 1 dose, On 12/29/21 at 0030, Routine [facility] diazePAM (VALIUM) injection 10 mg 12-29 04:15: 00 12-29 03:17 :00 No 10mg 10 mg, Intravenou s, ONCE, 1 dose, On 12/28/21 at 2315, Routine [facility] diazePAM (VALIUM) injection 5 mg 12-29 03:45: 01 Yes 5mg 5 mg, Intravenou s, QIDPRN, Starting on 12/28/21 at 2245, Until Discontinu ed, Routine, Seizures, Agitation [facility] foLIC acid (FOLATE) tablet 1 mg 12-29 03:45: 00 Yes 1mg 1 mg, Oral, DAILY, First dose on 12/28/21 at 2245, Until Discontinu ed, Routine [facility] thiamine (VITAMIN B1) tablet 100 mg 12-29 03:45: 00 Yes 100mg 100 mg, Oral, DAILY, First dose (after last modificati on) on 12/28/21 at 2245, Until Discontinu ed, Routine [facility] glucagon (GLUCAGEN DIAGNOSTIC KIT) injection 1 mg 12-29 03:42: 19 Yes 1mg 1 mg, Intramuscu lar, PRN, Starting on 12/28/21 at 2242, Until Discontinu ed, JACIEL, Blood Glucose < or = 70 mg/dL and patient is unable to swallow or has mental changes. [facility] dextrose 10% (D10W) bolus infusion [...] blood glucose is < 80 mg/dL, repeat.
[facility] LORazepam (ATIVAN) injection 1 mg 12-29 03:30: 00 12-29 02:32 :00 No 1mg 1 mg, Intravenou s, ONCE, 1 dose, On 12/28/21 at 2230, Routine
Is the medication being used for status epilepticu s? No [facility] oxazepam (SERAX) capsule 15 mg 12-29 00:28: 20 Yes 15mg 15 mg, Oral, Q4HPRN, Starting on 12/28/21 at 1928, Until Discontinu ed, Routine, Only while awake for DBP equal to or greater than 100, HR equal to or greater than 100. [facility] ondansetron (ZOFRAN (PF)) injection 4 mg 12-29 00:23: 47 Yes 4mg 4 mg, Slow IV Push, Q6HPRN, Starting on 12/28/21 at 1923, Until Discontinu ed, Routine, Nausea and Vomiting (N/V) [facility] acetaminoph en (TYLENOL) tablet 650 mg 12-29 00:23: 37 Yes 650mg 650 mg, Oral, Q6HPRN, Starting on 12/28/21 at 1923, Until Discontinu ed, Routine, Pain (scale 1-3), Temp > 38.5 C [facility] chlordiazeP OXIDE (LIBRIUM) capsule 25 mg 12-28 23:15: 00 12-28 23:24 :00 No 25mg 25 mg, Oral, ONCE, 1 dose, On 12/28/21 at 1815, [facility] NaCl 0.9% (NS) bolus infusion 2,000 mL 12-28 22:45: 00 12-28 23:18 :00 No 2000mL at 999 mL/hr, 2,000 mL, IV Infusion, ONCE, 1 dose, On 12/28/21 at 1745, JACIEL [facility] LORazepam (ATIVAN) injection 1 mg 12-28 20:45: 00 12-28 20:49 :00 No 1mg 1 mg, Slow IV Push, ONCE, 1 dose, On 12/28/21 at 1545, STAT
Is the medication being used for status epilepticu s? No [facility] acetaminoph en (TYLENOL) 500 mg tablet 10-06 00:00: 00 Yes 500mg Take 1 Tab by mouth every 6 (six) hours as needed for Pain. [facility] Vital Signs Vital Name Observation Time Observation Value Comments S ource Systolic blood pressure 2023-12-13 05:16:00 125 mm[Hg] [facility] Diastolic blood pressure 2023-12-13 05:16:00 90 mm[Hg] [facility] Heart rate 2023-12-13 05:16:00 77 /min [facility] Body temperature 2023-12-13 05:16:00 36.06 Theresa [facility] Respiratory rate 2023-12-13 05:16:00 16 /min [facility] Oxygen saturation in Arterial blood by Pulse oximetry 2023-12-13 05:16:00 98 /min [facility] Body height 2023-12-13 01:35:00 157.5 cm [facility] Body weight 2023-12-13 01:35:00 65.772 kg [facility] BMI 2023-12-13 01:35:00 26.52 kg/m2 [facility] Systolic blood pressure 2023-11-05 21:00:00 106 mm[Hg] [facility] Diastolic blood pressure 2023-11-05 21:00:00 70 mm[Hg] [facility] Heart rate 2023-11-05 21:00:00 74 /min [facility] Body temperature 2023-11-05 21:00:00 36.5 Theresa [facility] Respiratory rate 2023-11-05 21:00:00 21 /min [facility] Oxygen saturation in Arterial blood by Pulse oximetry 2023-11-05 21:00:00 98 /min [facility] Body height 2023-11-05 19:59:00 160 cm [facility] Body weight 2023-11-05 19:59:00 63.504 kg [facility] BMI 2023-11-05 19:59:00 24.80 kg/m2 [facility] Systolic blood pressure 2022-11-11 20:31:31 116 mm[Hg] [facility] Diastolic blood pressure 2022-11-11 20:31:31 77 mm[Hg] [facility] Heart rate 2022-11-11 20:31:31 84 /min [facility] Respiratory rate 2022-11-11 20:31:31 12 /min [facility] Oxygen saturation in Arterial blood by Pulse oximetry 2022-11-11 20:31:31 90 /min [facility] Body temperature 2022-11-11 18:49:00 37.11 Theresa [facility] Body height 2022-11-11 18:49:00 160 cm [facility] Body weight 2022-11-11 18:49:00 68.04 kg [facility] BMI 2022-11-11 18:49:00 26.57 kg/m2 [facility] Body temperature 2022-08-11 14:00:00 36.5 Theresa [facility] Systolic blood pressure 2022-08-11 10:00:00 116 mm[Hg] [facility] Diastolic blood pressure 2022-08-11 10:00:00 71 mm[Hg] [facility] Heart rate 2022-08-11 10:00:00 70 /[facility] Respiratory rate 2022-08-11 10:00:00 16 /min [facility] Body weight 2022-08-11 10:00:00 65.499 kg [facility] BMI 2022-08-11 10:00:00 25.58 kg/m2 [facility] Oxygen saturation in Arterial blood by Pulse oximetry 2022-08-11 10:00:00 100 /min [facility] Body height 2022-08-10 22:12:00 160 cm [facility] Systolic blood pressure 2022-04-06 16:00:00 125 mm[Hg] [facility] Diastolic blood pressure 2022-04-06 16:00:00 75 mm[Hg] [facility] Heart rate 2022-04-06 16:00:00 87 /min [facility] Respiratory rate 2022-04-06 16:00:00 22 /min [facility] Oxygen saturation in Arterial blood by Pulse oximetry 2022-04-06 16:00:00 98 /min [facility] Body temperature 2022-04-06 14:41:00 37 Theresa [facility] Body height 2022-04-06 14:41:00 160 cm [facility] Body weight 2022-04-06 14:41:00 63.504 kg [facility] BMI 2022-04-06 14:41:00 24.80 kg/m2 [facility] Systolic blood pressure 2022-01-20 02:27:00 121 mm[Hg] [facility] Diastolic blood pressure 2022-01-20 02:27:00 75 mm[Hg] [facility] Heart rate 2022-01-20 02:27:00 79 /min [facility] Respiratory rate 2022-01-20 02:27:00 12 /min [facility] Oxygen saturation in Arterial blood by Pulse oximetry 2022-01-20 02:27:00 98 /min [facility] Body temperature 2022-01-19 22:19:00 36.44 Theresa [facility] Body weight 2022-01-19 22:19:00 60.328 kg [facility] BMI 2022-01-19 22:19:00 23.56 kg/m2 [facility] Systolic blood pressure 2021-12-30 20:52:00 134 mm[Hg] [facility] Diastolic blood pressure 2021-12-30 20:52:00 76 mm[Hg] [facility] Heart rate 2021-12-30 20:52:00 67 /min [facility] Body temperature 2021-12-30 20:26:00 36.67 Theresa [facility] Oxygen saturation in Arterial blood by Pulse oximetry 2021-12-30 20:26:00 99 /min [facility] Respiratory rate 2021-12-30 16:21:00 18 /min [facility] Body weight 2021-12-30 08:27:00 60.464 kg [facility] BMI 2021-12-30 08:27:00 23.61 kg/m2 [facility] Body height 2021-12-29 01:29:00 160 cm [facility] Procedures Procedure Date / Time Performed Performing Clinician Source TROPONIN I 2023-12-13 03:32:00 Rafael Byrd [facility] XR CHEST 1 VW 2023-12-13 02:18:14 [facility] LIPASE 2023-12-13 02:07:00 Rafael Byrd [facility] TROPONIN I 2023-12-13 02:07:00 Rafael Byrd [facility] COMP. METABOLIC PANEL ([id number]) 2023-12-13 02:07:00 Rafael Byrd [facility] CBC WITH DIFF 2023-12-13 02:07:00 Rafael Byrd [facility] XR CHEST 1 VW 2023-11-05 20:09:00 Sulaiman Hawkins [facility] LIPASE 2023-11-05 20:01:00 Sulaiman Hawkins [facility] MAGNESIUM 2023-11-05 20:01:00 [facility] TROPONIN I 2023-11-05 20:01:00 [facility] COMP. METABOLIC PANEL ([id number]) 2023-11-05 20:01:00 Sulaiman Hawkins [facility] CBC WITH DIFF 2023-11-05 20:01:00 Sulaiman Hawkins [facility] N-TERMINAL PRO-BNP 2023-11-05 20:01:00 Sulaiman Hawkins [facility] MAGNESIUM 2022-11-11 19:05:00 Jessica [facility] BASIC METABOLIC PANEL (NA, K, CL, CO2, GLUCOSE, BUN, CREATININE, CA) 2022-11-11 19:05[facility]22-11-11 19:05:00 [facility] CBC WITH DIFF 2022-11-11 19:05:00 Hemant Klein [facility] POCT GLUCOSE (AUTOMATED) 2022-08-11 13:36:00 Arvind Prado [facility] PHOSPHORUS 2022-08-11 10:35:00 [facility] MAGNESIUM 2022-08-11 10:35:00 [facility] AMMONIA, PLASMA 2022-08-11 10:35:00 Jessica Prado [facility] COMP. METABOLIC PANEL ([id number]) 2022-08-11 10:35:00 Eve [facility] CBC WITH DIFF 2022-08-11 10:35:00 Oswald Murphy [facility] POCT GLUCOSE (AUTOMATED) 2022-08-11 02:15:00 Arvind Prado [facility] POCT GLUCOSE (AUTOMATED) 2022-08-10 23:10:00 Arvind Prado [facility] POCT GLUCOSE (AUTOMATED) 2022-08-10 18:20:00 Arvind Prado [facility] POCT GLUCOSE (AUTOMATED) 2022-08-10 14:11:00 Arvind Prado [facility] POCT GLUCOSE (AUTOMATED) 2022-08-10 10:59:00 Gopal Driscoll [facility] COVID-19 (ID NOW RAPID TESTING) 2022-08-10 07:17:00 Rayray Driscoll [facility] LAB ONLY COVID INTERPRETATION 2022-08-10 07:17:00 Rayray Driscoll [facility] HB ECG ROUTINE & RHYTHM STRIP 2022-08-10 06:03:48 Rayray Driscoll [facility] URINALYSIS 2022-08-10 05:46:00 [facility] URINE DRUG (IMMUNOASSAY) - COMPREHENSIVE DRUG SCREEN W/O REFLEX 2022-08-10 05:45:00 Rayray Driscoll [facility] CREATINE KINASE 2022-08-10 05:16:00 [facility]22-08-10 05:16:00 [facility] MAGNESIUM 2022-08-10 05:16:00 [facility] TROPONIN I 2022-08-10 05:16:00 Rayray Driscoll [facility] COMP. METABOLIC PANEL ([id number]) 2022-08-10 05:16:00 Rayray Driscoll [facility] ETHANOL 2022-08-10 05:16:00 Rayray Driscoll [facility] CBC WITH DIFF 2022-08-10 05:16:00 Rayray Driscoll [facility] N-TERMINAL PRO-BNP 2022-08-10 05:16:00 Rayray Driscoll [facility] CRITICAL CARE 2022-08-10 04:52:00 Rayray Driscoll [facility] XR CHEST 1 VW 2022-04-06 14:51:50 Diya Chowdhury [facility] LIPASE 2022-04-06 14:42:00 Diya Chowdhury Un [facility] TROPONIN I 2022-04-06 14:42:00 Diya Chowdhury [facility] COMP. METABOLIC PANEL ([id number]) 2022-04-06 14:42:00 Diya Chowdhury [facility] CBC WITH DIFF 2022-04-06 14:42:00 Diya Chowdhury [facility] PROTHROMBIN TIME / INR 2022-04-06 14:42:00 Diya Chowdhury [facility] ACTIVATED PARTIAL THRMPLAS NELDA 2022-04-06 14:42:00 Diya Chowdhury [facility] LACTIC ACID WHOLE BLOOD 2022-01-20 00:22:00 Leticia Baldwin [facility] URINE DRUG (IMMUNOASSAY) - COMPREHENSIVE DRUG SCREEN 2022-01-19 23:10:00 Leticia Baldwin [facility] URINALYSIS 2022-01-19 23:10:00 Leticia Baldwin [facility] TROPONIN I 2022-01-19 23:00:00 [facility] COMP. METABOLIC PANEL ([id number]) 2022-01-19 23:00:00 Leticia Baldwin [facility] LITHIUM 2022-01-19 23:00:00 Leticia Baldwin [facility] ETHANOL 2022-01-19 23:00:00 Leticia Baldwin [facility] CBC WITH DIFF 2022-01-19 23:00:00 Leticia Baldwin [facility] COVID-19 (ID NOW RAPID TESTING) 2022-01-19 23:00:00 Leticia Baldwin [facility] CT HEAD WO CONTRAST 2022-01-19 22:49:00 Leticia Baldwin [facility] XR CHEST 1 VW 2022-01-19 22:41:00 Leticia Baldwin [facility] POCT GLUCOSE (AUTOMATED) 2022-01-19 22:25:00 Leticia Baldwin [facility] POCT GLUCOSE (AUTOMATED) 2021-12-30 21:55:00 Arvind Prado [facility] POCT GLUCOSE (AUTOMATED) 2021-12-30 16:21:00 Arvind Prado [facility] POCT GLUCOSE (AUTOMATED) 2021-12-30 12:30:00 Arvind Prado [facility] HEPATIC FUNCTION PANEL ([id number]) (ALB,T.PRO,BILI T,BU/BC,ALT,AST,ALK PHOS) 2021-12-30 09:28:00 Maira Gaitan [facility] POCT GLUCOSE (AUTOMATED) 2021-12-30 02:11:00 Arvind Prado [facility] POCT GLUCOSE (AUTOMATED) 2021-12-29 21:41:00 Arvind Prado [facility] POCT GLUCOSE (AUTOMATED) 2021-12-29 16:37:00 Arvind Prado [facility] TRANSTHORACIC ECHO (TTE) COMPLETE W/ CONTRAST 2021-12-29 13:05:00 Jessica Prado [facility] POCT GLUCOSE (AUTOMATED) 2021-12-29 12:41:00 Arvind Prado [facility] TROPONIN I 2021-12-29 09:42:00 [facility] TROPONIN I 2021-12-29 04:55:00 [facility] CT HEAD WO CONTRAST 2021-12-28 21:18:22 Poppy Renteria [facility] AMMONIA, PLASMA 2021-12-28 21:00:00 Pia Renteria [facility] COVID-19 (ID NOW RAPID TESTING) 2021-12-28 20:42:00 Pia Renteria [facility] LAB ONLY COVID INTERPRETATION 2021-12-28 20:42:00 Pia Renteria [facility] URINE DRUG (IMMUNOASSAY) - COMPREHENSIVE DRUG SCREEN W/O REFLEX 2021-12-28 20:42:00 Pia Renteria [facility] URINALYSIS 2021-12-28 20:40:00 Pia Renteria [facility] N-TERMINAL PRO-BNP 2021-12-28 20:40:00 Corina Renteria [facility] TROPONIN I 2021-12-28 20:40:00 Pia Renteria [facility] THYROID STIMULATING HORMONE 2021-12-28 20:40:00 Jessica Prado [facility] COMP. METABOLIC PANEL ([id number]) 2021-12-28 20:40:00 Pia Renteria [facility] LIPID PANEL ([id number])(TOTAL CHOLESTEROL, TRIGLYCERIDES, HDL) 2021-12-28 20:40:00 Demetrius Langford [facility] ETHANOL 2021-12-28 20:40:00 Demetrius Langford [facility] CBC WITH DIFF 2021-12-28 20:40:00 Pia Renteria [facility] GLYCOSYLATED HEMOGLOBIN (A1C) 2021-12-28 20:40:00 Jessica Prado [facility] PROTHROMBIN TIME / INR 2021-12-28 20:40:00 Lesly Renteria [facility] XR CHEST 1 VW 2021-12-28 20:16:00 Pia Renteria [facility] HB ECG ROUTINE & RHYTHM STRIP 2021-12-28 20:04:59 Pia Renteria [facility] Encounters Start Date/Time End Date/Time Encounter Type Admission Type Attending [facility] Facility Care Department Encounter ID Source 2021-09-17 16:45:00 Inpatient [facility] [id number] [facility] 2020-06-06 16:07:00 Inpatient [facility] [id number] [facility] 2020-06-06 06:20:00 Inpatient [facility] [id number] [facility] 2020-06-05 19:35:00 Inpatient [facility] [id number] [facility] 2020-05-23 19:53:00 Inpatient [facility] [id number] [facility] 2020-05-23 19:53:00 Inpatient [facility] [id number] [facility] 2023-12-12 20:44:00 2023-12-13 00:22:00 Emergency Rafael Byrd [facility] 1.2.840.114 350.1.13.10 4.2.7.2.686 [id number] [facility] 2023-11-05 14:54:00 2023-11-05 16:27:00 Emergency Sulaiman Hawkins [facility] 1.2.840.114 350.1.13.10 4.2.7.2.686 [id number] [facility] 2022-11-11 13:50:00 2022-11-11 16:07:00 Emergency X HEMANT KLEIN [facility] [id number] [facility] 2022-11-11 13:50:00 2022-11-11 16:07:00 Emergency Hemant Klein [facility] 1.2.840.114 350.1.13.10 4.2.7.2.686 [id number] [facility] 2022-10-14 20:59:00 2022-10-14 20:59:00 Emergency [facility] [id number] [facility] 2022-10-14 20:59:00 2022-10-14 20:59:00 Emergency Emergency Pan Pinto [facility] [id number] [facility] 2022-08-09 22:59:00 2022-08-11 13:02:00 Outpatient X JESSICA PRADO [facility] [id number] [facility] 2022-08-09 22:59:00 2022-08-11 13:02:00 Emergency DriscollMukundRayrayJessica Avilez [facility] 1.2.840.114 350.1.13.10 4.2.7.2.686 [id number] [facility] 2022-04-06 09:38:00 2022-04-06 11:42:00 Emergency X DIYA CHOWDHURY [facility] [id number] [facility] 2022-04-06 09:38:00 2022-04-06 11:42:00 Emergency EnrikegisselleDiya domingo [facility] 1.2.840.114 350.1.13.10 4.2.7.2.686 [id number] [facility] 2022-03-07 12:38:00 2022-03-07 12:38:00 Emergency [facility] [id number] [facility] 2022-03-07 12:38:00 2022-03-07 12:38:00 Emergency Emergency iFdel Cuellar [facility] [id number] [facility] 2022-01-19 17:18:00 2022-01-19 22:00:00 Emergency X DIRK YARBROUGH [facility] [id number] [facility] 2022-01-19 17:18:00 2022-01-19 22:00:00 Emergency NicolasaLeticia vega Julio C [facility] 1.2.840.114 350.1.13.10 4.2.7.2.686 [id number] [facility] 2021-12-31 00:00:00 2021-12-31 00:00:00 Transition of Care Bandar Faye SHEARMarlon MASSIEL [facility] 1.2.840.114 350.1.13.10 4.2.7.2.686 [id number] [facility] 2021-12-28 14:53:00 2021-12-30 17:42:00 Inpatient X JESSICA PRADO [facility] [id number] [facility] 2021-12-28 14:53:00 2021-12-30 17:42:00 Hospital Encounter Pia Renteria Jelani [facility] 1.2.840.114 350.1.13.10 4.2.7.2.686 [id number] [facility] 2021-09-17 16:47:00 2021-09-17 16:47:00 Emergency [facility] [id number] [facility] 2020-06-06 16:07:00 2020-06-06 16:07:00 Emergency [facility] [id number] [facility] Results Test Description Test Time Test Comments Results Result Co mments Source [facility] [id number] 02:57:27* Test Item Value Reference Range Interpretation Comme nts TROPONIN I (test code = 1513910179) 0.003 ng/mL <=0.034 JUAN ALBERTO (test code [...] of biotin. Lab Interpretation (test code = 63310-2) Normal [facility]. METABOLIC PANEL (09082)2023-12-13 02:46:25* Test Item Value Reference Range Interpretation Comme nts NA (test code = 6313378965) 144 mmol/L 135-145 K (test code = 0002283526) 3.9 mmol/L 3.5-5.0 CL (test code = 4742527603) 110 mmol/L 98-108 H CO2 TOTAL (test code = 5375173663) 20 mmol/L 23-31 L AGAP (test code = 6059041966) 14 2-16 BUN (test code = 5371535843) 13 mg/dL 7-23 GLUCOSE (test code = 7456975250) 163 mg/dL 70-110 H CREATININE (test code = 2160-0) 0.63 mg/dL 0.60-1.25 TOTAL BILI (test code = 9009066081) 0.3 mg/dL 0.1-1.1 CALCIUM (test code = 0509526393) 9.0 mg/dL 8.6-10.6 T PROTEIN (test code = 0617014109) 7.2 g/dL 6.3-8.2 ALBUMIN (test code = 7365580022) 4.1 g/dL 3.5-5.0 ALK PHOS (test code = 9295238438) 129 U/L 34-122 H ALTv (test code = 1742-6) 15 U/L 5-50 AST(SGOT) (test code = 8704208067) 34 U/L 13-40 eGFR (test code = 72901-6) 113.7 mL/min/1.73m2 CKD-EPI eGFR (2020). Assuming creatinine has been stable day-to-day for at least three months, the eGFR indicates Category G1 (>= 90 mL/min/1.73 m2) Lab Interpretation (test code = 74533-3) [facility]normal [facility], [id number] 02:45:25* Test Item Value Reference Range Interpretation Comme nts LIPASE (test code = 7177463091) 47 U/L 0-220 Lab Interpretation (test cod e = 23050-4) Normal [facility] 1 [id number] 02:40:35History: chest pain . Exam: XR CHEST 1 VW Date: 12/12/2023 9:15 PM Ordering provider: RAFAEL BYRD Technical quality: Adequate Comparison: 11/05/2023. Findings: Frontal view of the chest is obtained. The cardiac silhouette is normal in size. No evidence of infiltrate,pleural effusion, CHF, or pneumothorax.[facility] CenterCBC WITH [id number] 02:33:48* Test Item Value Reference Range Interpretation [...] 33.2 g/dL 31.2-35.0 RDW-SD (test code = 80812-8) 54.4 fL 38.5-51.6 H RDW-CV (test code = 788-0) 15.9 % 12.1-15.4 H PLT (test code = 777-3) 318 150-328 MPV (test code = 36578-2) 8.5 fL 9.8-13.0 L NRBC/100 WBC (test code = 3801146013) 0.0 0.0-10.0 NRBC x10^3 (test code = 9674112187) See_Comment [Automated messa ge] The system which generated this result transmitted reference range: 10*3/?L. The reference range was not used to interpret this result as normal/abnormal. GRAN MAT (NEUT) % (test code = 770-8) 50.1 % IMM GRAN % (test code = 8718313764) 0.40 % LYMPH % (test code = 736-9) 37.6 % MONO % (test code = 5905-5) 6.8 % EOS % (test code = 713-8) 4.1 % BASO % (test code = 706-2) 1.0 % GRAN MAT x10^3(ANC) (test code = 7050039097) 3.66 10*3/uL 1.99-6.95 IMM GRAN x10^3 (test code = 5421475096) 0.03 10*3/uL 0.00-0.06 LYMPH x10^3 (test code = 731-0) 2.75 10*3/uL 1.09-3.23 MONO x10^3 (test code = 742-7) 0.50 10*3/uL 0.36-1.02 EOS x10^3 (test code = 711-2) 0.30 10*3/uL 0.06-0.53 BASO x10^3 (test code = 704-7) 0.07 10*3/uL 0.01-0.09 Lab Interpretation (test code = 37757-6) [facility]normal [facility] 1 [id number] 20:15:30HISTORY: Chest pain. TECHNIQUE: Portable AP view of the chest is obtained. Comparison is beingmade with 04/06/2022 study. FINDINGS: No acute pneumonia. No pneumothorax or pleural effusion orpulmonarycongestion detected. Cardiac size is within normal limits.Prominent osteophytes are seen along right left vertebral margins at middleand lower thoracic spines. CONCLUSIONS: No signs of acute cardiopul monary disease.[facility] CenterETHANOL2023-05-23 19:45:56 ALCOHOL<10mg/dL11/11/2022 2:45 PM [facility]<10 Ftcrelvr66-386 Toxic>100 Depression of ROUTE MANAGER>400 [facility] (NA, K, CL, CO2, GLUCOSE, BUN, CREATININE, CA)2022-11-11 19:41:47* Test Item Value Reference Range Interpretation Comme nts NA (test code = 3973237813) 138 mmol/L 135-145 K (test code = 6293075300) 4.8 mmol/L 3.5-5.0 CL (test code = 5859983758) 103 mmol/L 98-108 CO2 TOTAL (test code = 9021187479) 26 mmol/L 23-31 AGAP (test code = 1677286182) 9 2-16 BUN (test code = 6591432308) 17 mg/dL 7-23 GLUCOSE (test code = 7115988869) 219 mg/dL 70-110 H CREATININE (test code = 6869530573) 0.72 mg/dL 0.60-1.25 CALCIUM (test code = 4040835812) 10.0 mg/dL 8.6-10.6 eGFR (test code = 8482108565) 114.6 mL/min/1.73m2 JUAN ALBERTO (test code = [...] imaging tests). Lab Interpretation (test code = 31775-1) Abnormal [facility] CenterMAGNESIUM2023-05-23 19:41:47* Test Item Value Reference Range Interpretation Comme nts MAGNESIUM (test code = 7714261730) 1.8 mg/dL 1.7-2.4 Lab Interpretation (test cod e = 27724-4) Normal [facility] CenterCB WITH [id number] 19:25:26* Test Item Value Reference Range Interpretation Comme nts WBC (test code = 6690-2) 6.82 See_Comment [Automated [employer]] The system which generated this result transmitted reference range: 4.20 - 10.70 10*3/?L. The reference range was not used to interpret this result as normal/abnormal. RBC (test code = 789-8) 4.98 See_Comment [Automated [employer]] The system which generated this result transmitted [...] 33.9 g/dL 31.2-35.0 RDW-SD (test code = 69698-2) 46.0 fL 38.5-51.6 RDW-CV (test code = 788-0) 13.5 % 12.1-15.4 PLT (test code = 777-3) 237 See_Comment [Automated [employer]] The system which generated this result transmitted reference range: 150 - 328 10*3/?L. The reference range was not used to interpret this result as normal/abnormal. MPV (test code = 53902-5) 8.9 fL 9.8-13.0 L NRBC/100 WBC (test code = 3274393139) 0.0 See_Comment [Automated me ssage] The system which generated this result transmitted reference range: 0.0 - 10.0 /100 WBCs. The reference range was not used to interpret this result as normal/abnormal. NRBC x10^3 (test code = 3925748300) See_Comment [Automated messa ge] The system which generated this result transmitted reference range: 10*3/?L. The reference range was not used to interpret this result as normal/abnormal. GRAN MAT (NEUT) % (test code = 770-8) 71.2 % IMM GRAN % (test code = 4082707021) 0.30 % LYMPH % (test code = 736-9) 18.2 % MONO % (test code = 5905-5) 8.4 % EOS % (test code = 713-8) 1.0 % BASO % (test code = 706-2) 0.9 % GRAN MAT x10^3(ANC) (test code = 5299052741) 4.86 10*3/uL 1.99-6.95 IMM GRAN x10^3 (test code = 1863640936) 0.00-0.06 LYMPH x10^3 (test code = 731-0) 1.24 10*3/uL 1.09-3.23 MONO x10^3 (test code = 742-7) 0.57 10*3/uL 0.36-1.02 EOS x10^3 (test code = 711-2) 0.07 10*3/uL 0.06-0.53 BASO x10^3 (test code = 704-7) 0.06 10*3/uL 0.01-0.09 Lab Interpretation (test code = 83760-5) Abnormal [facility] Center[facility], Urinalysis Rflx Cult/[id number] 22:20:00* Test Item Value Reference Range Interpretation Comme nts Color,Urine (test code = UCOL) Yellow Yellow Clarity,Urine (test code = UCLAR) Clear Clear Ph, Urine (test code = UPH) 7.0 5.0-9.0 N Specific [place],Urine (test code = USG) 1.020 1.005-1.030 N [...] code = ULEU) Negative mg/dL Negative Drug Screen,[id number] 22:20:00* Test Item Value Reference Range Interpretation [...] UPROP) Negative Negative Complete Blood Count Auto [id number] 21:21:00* Test Item Value Reference Range Interpretation [...] code = NRBCP) 0 % Comprehensive Metabolic [id number] 21:21:00* Test Item Value Reference Range Interpretation [...] a race coefficient. Additional information canbe found at:[email or web address] 5.[email or web address] ([email or web address]) [Automated message] The system [...] = ALP) 134 U/L 46-116 H Ethanol Xznik6328-82-49 21:21:00* Test Item Value Reference Range Interpretation Comme nts Ethanol (test code = ETOH) < 3 mg/dL The pharmacologi yudy response to blood alcohol levels mayvary from individual to individual. The fatal concentrationhas been reported to be >400mg/dL. POCT GLUCOSE (AUTOMATED)2022-08-11 13:40:35* Test Item Value Reference Range Interpretation Comme nts POCT GLU (test code = 7885376308) 121 mg/dL 70-110 H Lab Interpretation (test cod e = 68483-5) Abnormal [facility] GLUCOSE (AUTOMATED)2022-08-11 02:18:58* Test Item Value Reference Range Interpretation Comme nts POCT GLU (test code = 7887117515) 183 mg/dL 70-110 H Lab Interpretation (test cod e = 20396-7) Abnormal [facility] GLUCOSE (AUTOMATED)2022-08-10 23:16:11* Test Item Value Reference Range Interpretation Comme nts POCT GLU (test code = 8735220685) 176 mg/dL 70-110 H Lab Interpretation (test cod e = 10461-4) Abnormal [facility] GLUCOSE (AUTOMATED)2022-08-10 18:22:51* Test Item Value Reference Range Interpretation Comme nts POCT GLU (test code = 2609454970) 165 mg/dL 70-110 H Lab Interpretation (test cod e = 90600-0) Abnormal [facility] GLUCOSE (AUTOMATED)2022-08-10 14:18:05* Test Item Value Reference Range Interpretation Comme nts POCT GLU (test code = 2016073241) 138 mg/dL 70-110 H Lab Interpretation (test cod e = 59948-9) Abnormal [facility] GLUCOSE (AUTOMATED)2022-08-10 11:01:21* Test Item Value Reference Range Interpretation Comme nts POCT GLU (test code = 2013212035) 143 mg/dL 70-110 H Lab Interpretation (test cod e = 93359-4) Abnormal [facility] CenterTROPONIN [id number] 06:51:18* Test Item Value Reference Range Interpretation Comme nts TROPONIN I (test code = 5754743647) 0.008 ng/mL <=0.034 JUAN ALBERTO (test code [...] of biotin. Lab Interpretation (test code = 91162-0) Normal [facility] CenterN-TERMINAL WKZ-[id number] 06:47:37* Test Item Value Reference Range Interpretation Comme nts NT-proBNP (test code = 5266744122) 37 pg/mL <=125 JUAN ALBERTO (test code = JUAN ALBERTO) Biotin has been reported to cause a negative bias, interpret results relative to patient's use of biotin. Lab Interpretation (test code = 52783-8) Normal [facility] CenterETHANOL2023-02-19 06:25:52 ALCOHOL<10mg/dL08/10/2022 12:25 AM [facility]<10 Emaehpsc83-802 Toxic>100 Depression of ROUTE MANAGER>400 Fatalities ReportedValley Regional Medical CenterCOM. METABOLIC PANEL (17655)2022-08-10 06:19:15* Test Item Value Reference Range Interpretation Comme nts NA (test code = 2627561747) 135 mmol/L 135-145 K (test code = 6057006246) 4.3 mmol/L 3.5-5.0 CL (test code = 6360430526) 98 mmol/L 98-108 CO2 TOTAL (test code = 6769280193) 30 mmol/L 23-31 AGAP (test code = 7756181505) 7 2-16 BUN (test code = 7063253120) 11 mg/dL 7-23 GLUCOSE (test code = 1189565353) 153 mg/dL 70-110 H CREATININE (test code = 6160695374) 0.77 mg/dL 0.60-1.25 TOTAL BILI (test code = 6133558795) 0.9 mg/dL 0.1-1.1 CALCIUM (test code = 1986537855) 10.0 mg/dL 8.6-10.6 T PROTEIN (test code = 2991050798) 7.7 g/dL 6.3-8.2 ALBUMIN (test code = 2353107265) 4.6 g/dL 3.5-5.0 ALK PHOS (test code = 2666417179) 92 U/L 34-122 ALTv (test code = 1742-6) 35 U/L 5-50 AST(SGOT) (test code = 1439754697) 42 U/L 13-40 H eGFR (test code = 7370134766) 106.1 mL/min/1.73m2 JUAN ALBERTO (test code = [...] imaging tests). Lab Interpretation (test code = 72490-2) Abnormal [facility] CenterMAGNESIUM2023-02-19 06:19:15* Test Item Value Reference Range Interpretation Comme nts MAGNESIUM (test code = 8091471389) 2.2 mg/dL 1.7-2.4 Lab Interpretation (test cod e = 31931-2) Normal [facility] CenterLIPASE2023-02-19 06:18:55* Test Item Value Reference Range Interpretation Comme nts LIPASE (test code = 7642536873) 18 U/L 0-220 Lab Interpretation (test cod e = 27235-6) Normal [facility] CenterCREATINE [id number] 06:18:55* Test Item Value Reference Range Interpretation Comme nts CK (test code = 4444784520) 174 U/L 33-194 Lab Interpretation (test cod e = 38881-8) Normal [facility] CenterCBC WITH [id number] 06:02:35* Test Item Value Reference Range Interpretation [...] 32.4 g/dL 31.2-35.0 RDW-SD (test code = 17343-2) 50.2 fL 38.5-51.6 RDW-CV (test code = 788-0) 14.3 % 12.1-15.4 PLT (test code = 777-3) 241 See_Comment [Automated messa ge] The system which generated this result transmitted reference range: 150 - 328 10*3/?L. The reference range was not used to interpret this result as normal/abnormal. MPV (test code = 56057-7) 8.6 fL 9.8-13.0 L NRBC/100 WBC (test code = 9249227425) 0.0 See_Comment [Automated me ssage] The system which generated this result transmitted reference range: 0.0 - 10.0 /100 WBCs. The reference range was not used to interpret this result as normal/abnormal. NRBC x10^3 (test code = 4441171919) See_Comment [Automated messa ge] The system which generated this result transmitted reference range: 10*3/?L. The reference range was not used to interpret this result as normal/abnormal. GRAN MAT (NEUT) % (test code = 770-8) 63.9 % IMM GRAN % (test code = 9380904419) 0.50 % LYMPH % (test code = 736-9) 17.6 % MONO % (test code = 5905-5) 16.5 % EOS % (test code = 713-8) 0.7 % BASO % (test code = 706-2) 0.8 % GRAN MAT x10^3(ANC) (test code = 7861251985) 4.79 10*3/uL 1.99-6.95 IMM GRAN x10^3 (test code = 9524730588) 0.04 10*3/uL 0.00-0.06 LYMPH x10^3 (test code = 731-0) 1.32 10*3/uL 1.09-3.23 MONO x10^3 (test code = 742-7) 1.24 10*3/uL 0.36-1.02 H EOS x10^3 (test code = 711-2) 0.05 10*3/uL 0.06-0.53 L BASO x10^3 (test code = 704-7) 0.06 10*3/uL 0.01-0.09 Lab Interpretation (test code = 69811-0) [facility] [id number] 15:15:32* Test Item Value Reference Range Interpretation Comments TROPONIN I (test code = 8517914546) 0.007 ng/mL See_Comment [Automated message] The system [...] of biotin. Lab Interpretation (test code = 11021-7) Normal [facility] CenteraPTT2022-10-16 15:08:29* Test Item Value [...] 30 seconds. Lab Interpretation (test code = 09826-4) Normal [facility] CenterPROTHROMBIN TIME / [id number] 15:06:28* Test Item Value Reference Range Interpretation [...] the indications. Lab Interpretation (test code = 92976-3) Normal [facility] CenterCOMP. METABOLIC PANEL (74162)2022-04-06 15:03:31* Test Item Value Reference Range Interpretation Comme [facility] NA (test code = 5854334331) 136 mmol/L 135-145 K (test code = 4221065816) 5.0 mmol/L 3.5-5 CL (test code = 0553795264) 104 mmol/L 98-108 CO2 TOTAL (test code = 1614943732) 21 mmol/L 23-31 L AGAP (test code = 5211306625) 2-16 BUN (test code = 1733871808) 11 mg/dL 7-23 GLUCOSE (test code = 2572671369) 162 mg/dL 70-110 H CREATININE (test code = 6063948630) 0.52 mg/dL 0.6-1.25 L TOTAL BILI (test code = 8254200560) 1.0 mg/dL 0.1-1.1 CALCIUM (test code = 9156651701) 9.3 mg/dL 8.6-10.6 T PROTEIN (test code = 4807445564) 7.4 g/dL 6.3-8.2 ALBUMIN (test code = 3472548465) 4.4 g/dL 3.5-5 ALK PHOS (test code = 8653521321) 134 U/L 34-122 H ALTv (test code = 1742-6) 17 U/L 5-50 AST(SGOT) (test code = 6704858839) 38 U/L 13-40 eGFR (test code = 5844571927) mL/min/1.73m2 JUAN ALBERTO (test code = JUAN [...] imaging tests). Lab Interpretation (test code = 17035-2) Abnormal [facility] CenterLIPASE, [id number] 15:03:31* Test Item Value Reference Range Interpretation Comme nts LIPASE (test code = 5717874861) 29 U/L 0-220 Lab Interpretation (test cod e = 08946-3) Normal [facility] CenterCBC WITH [id number] 14:51:49* Test Item Value Reference Range Interpretation Comme nts WBC (test code = 6690-2) See_Comment [Automated [employer]] The system which generated this result transmitted reference range: 4.20 - 10.70 10*3/?L. The reference range was not used to interpret this result as normal/abnormal. RBC (test code = 789-8) See_Comment [Automated [employer] ge] The system which generated this result [...] 34.0 g/dL 31.2-35 RDW-SD (test code = 04311-9) 45.9 fL 38.5-51.6 RDW-CV (test code = 788-0) 13.3 % 12.1-15.4 PLT (test code = 777-3) See_Comment [Automated [employer]] The system which generated this result transmitted reference range: 150 - 328 10*3/?L. The reference range was not used to interpret this result as normal/abnormal. MPV (test code = 03064-7) 8.4 fL 9.8-13 L NRBC/100 WBC (test code = 2242905561) See_Comment [Automated me ssage] The system which generated this result transmitted reference range: 0.0 - 10.0 /100 WBCs. The reference range was not used to interpret this result as normal/abnormal. NRBC x10^3 (test code = 3404641108) See_Comment [Automated messa ge] The system which generated this result transmitted reference range: 10*3/?L. The reference range was not used to interpret this result as normal/abnormal. GRAN MAT (NEUT) % (test code = 770-8) 63.0 % IMM GRAN % (test code = 6241403240) 0.50 % LYMPH % (test code = 736-9) 25.2 % MONO % (test code = 5905-5) 9.8 % EOS % (test code = 713-8) 0.3 % BASO % (test code = 706-2) 1.2 % GRAN MAT x10^3(ANC) (test code = 2999663079) 3.73 10*3/uL 1.99-6.95 IMM GRAN x10^3 (test code = 4740473460) 0.03 10*3/uL 0-0.06 LYMPH x10^3 (test code = 731-0) 1.49 10*3/uL 1.09-3.23 MONO x10^3 (test code = 742-7) 0.58 10*3/uL 0.36-1.02 EOS x10^3 (test code = 711-2) 0.06-0.53 L BASO x10^3 (test code = 704-7) 0.07 10*3/uL 0.01-0.09 Lab Interpretation (test code = 95238-8) Abnormal [facility] Center[facility], Urinalysis Rflx Cult/Uxqfy8933-94-03 13:53:00* Test Item Value Reference Range Interpretation Comme nts Color,Urine (test code = UCOL) Yellow Yellow Clarity,Urine (test code = UCLAR) Cloudy Clear A Ph, Urine (test code = UPH) 7.5 5.0-9.0 N Specific [place],Urine (test code = USG) 1.025 1.005-1.030 N [...] = ULEU) Negative mg/dL Negative UF REFLEXDrug Screen,Rhksx2957-64-12 13:53:00* Test Item Value Reference Range Interpretation [...] UPROP) Negative Negative Complete Blood Count Auto [id number] 12:58:00* Test Item Value Reference Range Interpretation [...] = NRBCP) 0 % Coronavirus PCR, COVID19 Psouo3778-09-52 12:58:00* Test Item Value Reference Range Interpretation Comme nts Coronavirus PCR, COVID19 Rapid (test code = SARSCOV2) Coronavirus PCR, COVID19 Rapid (test code = XMCOLXV36.1) Reference Range: Negative SARS-CoV-2 PCR Result: (test code = SARS-CoV-2 PCR Result:) Negative by RT-PCR COVID-19 Status: AsymptomaticComprehensive Metabolic Xzjfc1173-21-73 12:58:00* Test Item Value Reference Range Interpretation [...] = ALP) 144 U/L 46-116 H Ethanol Dtdpe8349-67-34 12:58:00* Test Item Value Reference Range Interpretation Comme nts Ethanol (test code = ETOH) < 3 mg/dL The pharmacologi yudy response to blood alcohol levels mayvary from individual to individual. The fatal concentrationhas been reported to be >400mg/dL. [id number] 01:47:56* Test Item Value Reference Range Interpretation Comme nts [place] (test code = 4129980209) 0.7 mmol/L 0.6-1.2 JUAN ALBERTO (test code = JUAN ALBERTO) Toxic Range: ? Greater than 1.2 mmol/L Lab Interpretation (test code = 58470-4) [id number] 00:26:53* Test Item Value Reference Range Interpretation Comments TROPONIN I (test code = 0852955775) 0.002 ng/mL See_Comment [Automated message] The system [...] of biotin. Lab Interpretation (test code = 54533-9) [facility] 00:18:52 ALCOHOL<10mg/dL01/19/2022 7:18 PM [facility]<10 [id number] Toxic>100 Depression of [employer]GER>400 Fatalities [facility]ortedVal[facility] CenterCOM. METABOLIC PANEL (03957)2022-01-20 00:16:16* Test Item Value Reference Range Interpretation Comme nts NA (test code = 2904821984) 137 mmol/L 135-145 K (test code = 4680432119) 4.5 mmol/L 3.5-5 CL (test code = 3149180617) 103 mmol/L 98-108 CO2 TOTAL (test code = 5017890163) 26 mmol/L 23-31 AGAP (test code = 1595061325) 2-16 BUN (test code = 9010685238) 10 mg/dL 7-23 GLUCOSE (test code = 3605571004) 121 mg/dL 70-110 H CREATININE (test code = 4321989231) 0.65 mg/dL 0.6-1.25 TOTAL BILI (test code = 9471163627) 0.8 mg/dL 0.1-1.1 CALCIUM (test code = 3193422135) 11.4 mg/dL 8.6-10.6 H T PROTEIN (test code = 7507759527) 7.2 g/dL 6.3-8.2 ALBUMIN (test code = 9283806292) 4.6 g/dL 3.5-5 ALK PHOS (test code = 2661801471) 112 U/L 34-122 ALTv (test code = 1742-6) 19 U/L 5-50 AST(SGOT) (test code = 3190880889) 26 U/L 13-40 eGFR (test code = 6024446253) mL/min/1.73m2 JUAN ALBERTO (test code = JUAN [...] imaging tests). Lab Interpretation (test code = 21452-7) Abnormal [facility] WITH [id number] 23:43:54* Test Item Value Reference Range Interpretation Comme nts WBC (test code = 6690-2) See_Comment [Automated [employer]] The system which generated this result transmitted reference range: 4.20 - 10.70 10*3/?L. The reference range was not used to interpret this result as normal/abnormal. RBC (test code = 789-8) See_Comment [Automated [employer] ge] The system which generated this result [...] 34.4 g/dL 31.2-35 RDW-SD (test code = 67711-3) 44.0 fL 38.5-51.6 RDW-CV (test code = 788-0) 12.6 % 12.1-15.4 PLT (test code = 777-3) See_Comment [Automated [employer] ge] The system which generated this result transmitted reference range: 150 - 328 10*3/?L. The reference range was not used to interpret this result as normal/abnormal. MPV (test code = 74839-0) 9.1 fL 9.8-13 L NRBC/100 WBC (test code = 8167124563) See_Comment [Automated [employer] ssage] The system which generated this result transmitted reference range: 0.0 - 10.0 /100 WBCs. The reference range was not used to interpret this result as normal/abnormal. NRBC x10^3 (test code = 6556027412) See_Comment [Automated [employer] ge] The system which generated this result transmitted reference range: 10*3/?L. The reference range was not used to interpret this result as normal/abnormal. GRAN MAT (NEUT) % (test code = 770-8) 69.8 % IMM GRAN % (test code = 4102653265) 0.40 % LYMPH % (test code = 736-9) 18.0 % MONO % (test code = 5905-5) 10.9 % EOS % (test code = 713-8) 0.1 % BASO % (test code = 706-2) 0.8 % GRAN MAT x10^3(ANC) (test code = 7821054080) 5.58 10*3/uL 1.99-6.95 IMM GRAN x10^3 (test code = 5241553996) 0.03 10*3/uL 0-0.06 LYMPH x10^3 (test code = 731-0) 1.44 10*3/uL 1.09-3.23 MONO x10^3 (test code = 742-7) 0.87 10*3/uL 0.36-1.02 EOS x10^3 (test code = 711-2) 0.06-0.53 L BASO x10^3 (test code = 704-7) 0.06 10*3/uL 0.01-0.09 Lab Interpretation (test code = 05966-8) Abnormal [facility] GLUCOSE (AUTOMATED)2022-01-19 22:27:41* Test Item Value Reference Range Interpretation Comme nts POCT GLU (test code = 8010310456) 123 mg/dL 70-110 H Lab Interpretation (test cod e = 23657-4) Abnormal [facility] GLUCOSE (AUTOMATED)2021-12-30 22:08:16* Test Item Value Reference Range Interpretation Comme nts POCT GLU (test code = 3037837172) 167 mg/dL 70-110 H Lab Interpretation (test cod e = 96456-4) Abnormal [facility] GLUCOSE (AUTOMATED)2021-12-30 16:50:40* Test Item Value Reference Range Interpretation Comme nts POCT GLU (test code = 9188239730) 154 mg/dL 70-110 H Lab Interpretation (test cod e = 78480-7) Abnormal [facility] GLUCOSE (AUTOMATED)2021-12-30 12:38:43* Test Item Value Reference Range Interpretation Comme nts POCT GLU (test code = 2412021609) 164 mg/dL 70-110 H Lab Interpretation (test cod e = 89414-7) Abnormal [facility] GLUCOSE (AUTOMATED)2021-12-30 02:14:58* Test Item Value Reference Range Interpretation Comme nts POCT GLU (test code = 0970881360) 220 mg/dL 70-110 H Lab Interpretation (test cod e = 81707-2) Abnormal [facility] GLUCOSE (AUTOMATED)2021-12-29 21:50:02* Test Item Value Reference Range Interpretation Comme nts POCT GLU (test code = 2948068537) 191 mg/dL 70-110 H Lab Interpretation (test cod e = 74033-6) Abnormal [facility] GLUCOSE (AUTOMATED)2021-12-29 20:15:01* Test Item Value Reference Range Interpretation Comme nts POCT GLU (test code = 5814934070) 163 mg/dL 70-110 H Lab Interpretation (test cod e = 55013-7) [facility]normal [facility]2021-12-29 19:12:22* Test Item Value Reference Range Interpretation Comme nts Height (test code = 0965934076) in Weight (test code = 2873838260) lbs Systolic BP (test code = 4128225307) mmHg Diastolic BP (test code = 3708338384) mmHg Heart Rate (test code = 6613605099) bpm BSA (test code = 3998983336) 1.62 m2 Ao root annulus (test code = 0525184989) 2.45 cm Ao root diam (test code = 4854791302) 2.45 cm Aortic root (test code = 6912779642) 2.45 cm ACS (test code = 6190310081) 1.66 cm LA size (test code = 5154787910) 3.2 cm LVOT diameter (test code = 4319087745) 1.95 cm LVIDD (test code = 7668708637) 3.60 cm IVS (test code = 9291331471) 0.94 cm Interventricular Septum Diastolic Thickness by 2D (test code = 2598273) 0.94 cm LVPWD (test code = 0291665181) 0.80 cm PW (test code = 3435105805) 0.80 cm 0.6-1.1 EF(Teich) (test code = 9780517999) 52.80 % LVIDS (test code = 7377892716) 2.60 cm FS (test code = 7482599842) 27 % EF - 2D (test code = 94766099) 52.80 % LAV(MOD-sp4) (test code = 4186473116) 16.80 mL MV Peak E Jovany (test code = 6781090019) 46.1 cm/s E wave decelartion time (test code = 7006563420) 0.31 s MV Peak A Jovany (test code = 5044199280) 58.1 cm/s E/A ratio (test code = 9691662945) ratio MV E/e' septal (test code = 5909202651) 5.7 cm/s Tapse (test code = 5293875900) 1.60 cm LVOT stroke volume (test code = 9869020209) 52.10 cm3 LVOT peak jovany (test code = 0145648166) 110.6 cm/s LVOT mn grad (test code = 8268592924) mmHg AV LVOT peak gradient (test code = 6346321030) mmHg LVOT peak VTI (test code = 8555430510) 17.4 cm LV V1 mean (test code = 7330107251) 66.10 cm/s Aortic valve mean velocity (test code = 6993065960) 73.0 cm/s Ao peak jovany (test code = 4055015850) 124.6 cm/s Ao VTI (test code = 2076354040) 18.6 cm AV area by cont VTI (test code = 1353964604) 2.8 cm2 AV area peak jovany (test code = 6837763524) 2.7 cm2 Ao max PG (test code = 9692068132) 6.20 mm[Hg] AV peak gradient (test code = 6214162303) mmHg AV valve area (test code = 0342945898) 2.80 cm2 AV mean gradient (test code = 7065467192) mmHg Radiology Study observation (narrative) (test code = 97169-3) JUAN ALBERTO (test code = JUAN ALBERTO) [...] mL of Lumason ultrasound enhancing agent used. [facility]2021-12-29 12:50:31* Test Item Value Reference Range Interpretation Comme nts POCT GLU (test code = 6708265586) 141 mg/dL 70-110 H Lab Interpretation (test cod e = 45295-1) Abnormal [facility] CenterTrop[facility] [id number] 10:38:31* Test Item Value Reference Range Interpretation Comments TROPONIN I (test code = 3412993384) 0.003 ng/mL See_Comment [Automated message] The system [...] of biotin. Lab Interpretation (test code = 58673-4) Normal [facility] Center[facility]IP[facility] (23948)(TOTAL CHOLESTEROL, TRIGLYCERIDES, HDL)2021-12-29 05:56:47* Test Item Value Reference Range Interpretation Comme nts CHOL (test code = 4809181496) 168 mg/dL 120-200 HDL (test code = 6820895636) 102 mg/dL See_Comment [[employer]] The system which generated this result transmitted reference range: >=40. The reference range was not used to interpret this result as normal/abnormal. HDLC RATIO (test code = 2404995390) See_Comment [Automated [employer]] The system which generated this result transmitted reference range: <=5.0. The reference range was not used to interpret this result as normal/abnormal. TRIG (test code = 7800773579) 55 mg/dL 30-170 LDL CHOL (test code = 22825-7) 55 mg/dL See_Comment [[employer]] The system which generated this result transmitted reference range: <=160. The reference range was not used to interpret this result as normal/abnormal. VLDL (test code = 3562414033) 11 mg/dL 5-60 Lab Interpretation (test code = 50644-2) Normal [facility] CenterThyroid Stimulating Hormone (TSH)2021-12-29 05:40:29* Test Item Value Reference Range Interpretation Comme nts TSH (test code = 0373647570) See_Comment Biotin has been reported to cause a negative bias, interpret results relative to patient's use of biotin. [Automated message] The system which generated this result transmitted reference range: 0.45 - 4.70 mIU/L. The reference range was not used to interpret this result as normal/abnormal. Lab Interpretation (test code = 36511-5) Normal [facility] [id number] 05:34:29* Test Item Value Reference Range Interpretation Comments TROPONIN I (test code = 9966020100) 0.006 ng/mL See_Comment [Automated message] The system [...] of biotin. Lab Interpretation (test code = 82699-8) Normal [facility] CenterETHANOL2022-07-10 04:43:01 ALCOHOL<10mg/dL12/28/2021 11:43 PM [facility] Greater than or equal to 80 mg/dL. NOTE: Whole blood values are approximately 10% to 15% lower than serum and plasma.[facility] Glycosylated Hemoglobin (A1C)2021-12-29 01:51:44* Test Item Value Reference Range Interpretation Comme nts HGB A1C (test code = 4548-4) 6.5 % 4-5.7 H JUAN ALBERTO (test code = JUAN ALBERTO) Reference RangesNormal: <5.7%Prediabetes: 5.7 - 6.4%Diabetes: > 6.5% Lab Interpretation (test code = 69877-7) [facility]normal [facility] [id number] 21:26:50* Test Item Value Reference Range Interpretation Comments TROPONIN I (test code = 5000415725) 0.002 ng/mL See_Comment [Automated message] The system [...] of biotin. Lab Interpretation (test code = 58893-6) Normal [facility] CenterN-TERMINAL GIM-[id number] 21:23:29* Test Item Value Reference Range Interpretation Comme nts NT-proBNP (test code = 3907038657) 41 pg/mL See_Comment [Automated message] The system which generated this result transmitted reference range: <=125. The reference range was not used to interpret this result as normal/abnormal. JUAN ALBERTO (test code = JUAN ALBERTO) Biotin has been reported to cause a negative bias, interpret results relative to patient's use of biotin. Lab Interpretation (test code = 09513-3) Normal [facility] CenterAMMONIA, [id number] 21:20:38* Test Item Value Reference Range Interpretation Comme nts AMMONIA (test code = 5744425016) 9-33 L Slight hemolysis Lab Interpretation (test code = 54975-4) Abnormal [facility] CenterCOMP. METABOLIC PANEL (81949)2021-12-28 21:08:48* Test Item Value Reference Range Interpretation Comme nts NA (test code = 0332908812) 137 mmol/L 135-145 K (test code = 2147952641) 4.5 mmol/L 3.5-5 CL (test code = 2956102821) 97 mmol/L 98-108 L CO2 TOTAL (test code = 5650108635) 29 mmol/L 23-31 AGAP (test code = 7248933886) 2-16 BUN (test code = 5065779305) 10 mg/dL 7-23 GLUCOSE (test code = 6557446118) 188 mg/dL 70-110 H CREATININE (test code = 4783362556) 0.58 mg/dL 0.6-1.25 L TOTAL BILI (test code = 5521653139) 0.8 mg/dL 0.1-1.1 CALCIUM (test code = 5324546645) 10.5 mg/dL 8.6-10.6 T PROTEIN (test code = 7107000109) 7.6 g/dL 6.3-8.2 ALBUMIN (test code = 7268269401) 4.5 g/dL 3.5-5 ALK PHOS (test code = 8384703062) 107 U/L 34-122 ALTv (test code = 1742-6) 66 U/L 5-50 H AST(SGOT) (test code = 4766648426) 96 U/L 13-40 H eGFR (test code = 1614996711) mL/min/1.73m2 JUAN ALBERTO (test code = JUAN [...] imaging tests). Lab Interpretation (test code = 19469-5) Abnormal [facility] CenterPROTHROMBIN TIME / [id number] 21:01:25* Test Item Value Reference Range Interpretation Comme nts PROTIME PATIENT (test code = 5964-2) See_Comment [Automated [employer] ge] The system which generated this result transmitted reference range: 12.0 - 14.7 Seconds. The reference range was not used to interpret this result as normal/abnormal. INR (test code = 6301-6) Normal INR <1.1; Warfarin Therapeutic range 2.0 to 3.0 or 2.5 to 3.5, depending upon the indications. Lab Interpretation (test code = 64830-9) Normal [facility] CenterCBC WITH [id number] 20:54:03* Test Item Value Reference Range Interpretation Comme nts WBC (test code = 6690-2) See_Comment [Automated [employer]] The system which generated this result transmitted reference range: 4.20 - 10.70 10*3/?L. The reference range was not used to interpret this result as normal/abnormal. RBC (test code = 789-8) See_Comment [Automated [employer] ge] The system which generated this result [...] 34.2 g/dL 31.2-35 RDW-SD (test code = 45281-4) 47.8 fL 38.5-51.6 RDW-CV (test code = 788-0) 13.3 % 12.1-15.4 PLT (test code = 777-3) See_Comment [Automated [employer] ge] The system which generated this result transmitted reference range: 150 - 328 10*3/?L. The reference range was not used to interpret this result as normal/abnormal. MPV (test code = 66394-6) 8.6 fL 9.8-13 L NRBC/100 WBC (test code = 6845042797) See_Comment [Automated me ssage] The system which generated this result transmitted reference range: 0.0 - 10.0 /100 WBCs. The reference range was not used to interpret this result as normal/abnormal. NRBC x10^3 (test code = 4365971122) See_Comment [Automated messa ge] The system which generated this result transmitted reference range: 10*3/?L. The reference range was not used to interpret this result as normal/abnormal. GRAN MAT (NEUT) % (test code = 770-8) 64.1 % IMM GRAN % (test code = 1109037747) 0.40 % LYMPH % (test code = 736-9) 16.6 % MONO % (test code = 5905-5) 17.2 % EOS % (test code = 713-8) 0.2 % BASO % (test code = 706-2) 1.5 % GRAN MAT x10^3(ANC) (test code = 7766830098) 3.47 10*3/uL 1.99-6.95 IMM GRAN x10^3 (test code = 5544868069) 0-0.06 LYMPH x10^3 (test code = 731-0) 0.90 10*3/uL 1.09-3.23 L MONO x10^3 (test code = 742-7) 0.93 10*3/uL 0.36-1.02 EOS x10^3 (test code = 711-2) 0.06-0.53 L BASO x10^3 (test code = 704-7) 0.08 10*3/uL 0.01-0.09 Lab Interpretation (test code = 16331-4) Abnormal [facility] CenterEthanol [id number] 21:08:00* Test Item Value Reference Range Interpretation Comme nts Ethanol (test code = ETOH) < 3 mg/dL The pharmacologi yudy response to blood alcohol levels mayvary from individual to individual. The fatal concentrationhas been reported to be >400mg/dL. Complete Blood Count Auto [id number] 17:33:00* Test Item Value Reference Range Interpretation [...] = NRBCP) 0 % UA, Urinalysis Rflx Cult/[id number] 17:33:00* Test Item Value Reference Range Interpretation Comme nts Color,Urine (test code = UCOL) Dark Yellow Yellow A Clarity,Urine (test code = UCLAR) Clear Clear Ph, Urine (test code = UPH) 6.5 5.0-9.0 N Specific [place],Urine (test code = USG) 1.015 1.005-1.030 N [...] = ULEU) Trace mg/dL Negative A Urine [id number] 17:33:00* Test Item Value Reference Range Interpretation Comme nts RBC,Urine (test code = URBCUF) None Seen /HPF 0-2 WBC,Urine (test code = UWBCUF) 0-5 /HPF 0-5 Epithelial Cell,Urine (test code = UECUF) 0-5 /HPF 0-5 Casts,Urine (test code = UCASTUF) None Seen /LPF None Seen Bacteria,Urine (test code = UBACTUF) None Seen /hpf None Seen Drug Screen,[id number] 17:33:00* Test Item Value Reference Range Interpretation [...] code = UPROP) Negative Negative Comprehensive Metabolic Tmrtm0588-52-28 17:33:00* Test Item Value Reference Range Interpretation [...] 101 U/L 46-116 N Sars-CoV-2/FLU A/B RSV [id number] 17:31:00* Test Item Value Reference Range Interpretation [...] SARS-CoV-2 PCR Result:) Negative by RT-PCR Drug Screen,[id number] 17:20:00* Test Item Value Reference Range Interpretation [...] UPROP) Negative Negative Complete Blood Count Auto [id number] 17:14:00* Test Item Value Reference Range Interpretation [...] code = NRBCP) 0 % Comprehensive Metabolic [id number] 17:14:00* Test Item Value Reference Range Interpretation [...] = ALP) 207 U/L 46-116 H Ethanol [id number] 17:14:00* Test Item Value Reference Range Interpretation Comme nts Ethanol (test code = ETOH) 192 mg/dL Complete Blood Count Auto [id number] 20:20:00* Test Item Value Reference Range Interpretation [...] code = NRBCP) 0 % Comprehensive Metabolic [id number] 20:20:00* Test Item Value Reference Range Interpretation [...] = ALP) 189 U/L 46-116 H Ethanol [id number] 20:20:00* Test Item Value Reference Range Interpretation Comme nts Ethanol (test code = ETOH) 10 mg/dL Sars-CoV-2/FLU A/B RSV [id number] 20:20:00* Test Item Value Reference Range Interpretation [...] Negative by Nucleic Acid Amplification UA, Urinalysis Vkvbfxpyeti7623-73-96 20:20:00* Test Item Value Reference Range Interpretation Comme nts Color,Urine (test code = UCOL) Yellow Y Clarity,Urine (test code = UCLAR) Clear Clear PH,Urine (test code = UPH.XX) 7.0 5.5-8.5 Specific [place],Urine (test code = USG) 1.020 1.005-1.030 N [...] code = ULEU) Negative cells/uL Negative Drug Screen,[id number] 20:20:00* Test Item Value Reference Range Interpretation [...] (test code = UTHCS) Negative [facility] head[facility]brain wo [facility] [address] [place] [address] Patient Name: Walt Velazquez Medical Record#: [id number] Address: Homeless City/State/Zip: [place] [address]: Vinnie Navarro MD Insurance: Self Pay /Age/Sex: 1970/50/M Admit/Reg Date: 09/17/[address]: Vinnie Navarro MD Location: [facility]/ PCP: PcpMd KERWIN Jimenez Date of Service: 09/17/21 Order (s): CT head/brain wo con CPT Code: 10563 Report Number: [id number] Reason for Exam: Altered mental status Location [...] steady gait, in no apparent distress, T [facility] 2023-12-12 22:20:05 Pt removed all monitoring equipment T [facility] 2023-12-12 20:33:23 Pt brought in by [place] [facility] for medical clearance. [place] [place] [facility] check pt out on scene but after pt complained of chest pain. [place] [facility] brought pt in for clearance for county. Zeina Albrecht RN [facility] 2023-11-05 16:26:20 Pt discharged with diagnosis of [...] [facility] Renae Saldivar RN [facility] 2023-11-05 14:56:10 Walt Festus Velazquez Sr. is a 52 year old male arrive via [facility] c/o " throbbing ball in chest" since 0600 has been constant, pt immediately asks for food, T Emani Gomez RN [facility]
--- NOTE | 2024-02-23 03:02 | EDPHYS ---
Physician Documentation [facility] Name: Walt Velazquez Age: 53 yrs Sex: Male : 1970 Arrival Date: 02/23/2024 Time: 00:40 Bed 7 Private MD: ED Physician Kaleb Groves HPI: 02/22 00:43 This 53 yrs old Male presents to ER via Unassigned with complaints of ETOH ec2 Abuse. 00:43 Patient arrives today intoxicated, smells of alcohol, has no specific complaint.. ec2 Historical: - Allergies: 00:46 Trazodone; bm8 - PMHx: 00:46 etoh abuse (Seizure); Hypertensive disorder; Seizure; bm8 - Immunization history:: Adult Immunizations up to date. - Infectious Disease History:: Denies. - Social history:: Smoking status: unknown Patient uses alcohol, on a daily basis. ROS: 00:43 Constitutional: as per hpi ec2 Exam: 00:43 Constitutional: GEN: NAD Head: atraumatic Eyes: EOMI Ears: External ears are ec2 normal. CV: regular rate LUNGS: no respiratory distress ABD: non-distended SKIN: no evidence of rashes MSK: no evidence of trauma. Neuro: Intact neurologic exam moves all extremities equally, intoxicated individual. Vital Signs: 00:42 BP 117 / 85; Pulse 76; Resp 16; Temp 97.5; Pulse Ox 98% on R/A; Weight 63.5 kg; Height bm8 5 ft. 3 in. ; Pain 0/10; 00:44 BP 117 / 85; Pulse 78; Resp 18; Temp 97.5(O); Pulse Ox 98% on R/A; Weight 63.5 kg; oe Height 5 ft. 3 in. ; 01:00 BP 91 / 55; Pulse 63; Resp 16; Pulse Ox 98% on R/A; al5 02:19 BP 88 / 51; Pulse 70; Resp 16; Pulse Ox 98% on R/A; al5 02:37 BP 111 / 96; Pulse 75; Resp 18; Pulse Ox 100% on R/A; oe 00:44 Body Mass Index 24.80 (63.50 kg, 160.02 cm) oe 00:42 Pain Scale: Adult bm8 01:00 patient asleep al5 02:19 patient asleep al5 MDM: 00:41 Patient medically screened. ec2 00:43 Data reviewed: vital signs. ED course: Patient arrives today with alcohol intoxication ec2 with nonspecific complaint. Examination remarkable for well-appearing nontoxic but is otherwise in no acute distress. Will wait for patient to clinically sober then discharge. . 03:03 ED course: After observing, patient ambulatory and left without further discussion, ec2 patient had a semiunstable gait, appears still to be intoxicated, patient eloped. 03:04 ED course: PD called given patient's intoxicated status and elopement and concern for ec2 patient's safety. Administered Medications: No medications were administered Disposition Summary: 02/23/24 03:03 Eloped Notes: Disposition: post triage evaluation and consult ec2 Reason: feeling better ec2 Diagnosis - Alcohol abuse with intoxication(02/23/24 03:03) ec2 Followup: ec2 - With: Private Physician - When: - Reason: Re-evaluation by your physician Signatures: Kaleb Groves MD MD ec2 Venancio Brown RN RN bm8 Corrections: (The following items were deleted from the chart) 03:02 03:02 Home ec2 ec2 03:02 03:02 Stable ec2 ec2 03:02 03:02 Alcohol abuse with intoxication ec2 ec2
--- NOTE | 2024-02-23 03:02 | ER ---
Nurse's Notes [facility] Name: Walt Velazquez Age: 53 yrs Sex: Male : 1970 Arrival Date: 02/23/2024 Time: 00:40 Bed 7 Private MD: Diagnosis: Alcohol abuse with intoxication Presentation: 02/22 00:42 Chief complaint: EMS states: toned out for chest pain. patient denies chest pain at bm8 this time. no complaints at this time. Coronavirus screen: At this time, the client does not indicate any symptoms associated with coronavirus-19. Ebola Screen: No symptoms or risks identified at this time. Initial Sepsis Screen: Does the patient meet any 2 criteria? No. Patient's initial sepsis screen is negative. Does the patient have a suspected source of infection? No. Patient's initial sepsis screen is negative. Risk Assessment: Do you want to hurt yourself or someone else? Patient reports no desire to harm self or others. Onset of symptoms was February 23, 2024. 00:42 Method Of Arrival: EMS: [facility] 00:42 Acuity: LATASHA 4 bm8 Triage Assessment: 00:46 General: Appears in no apparent distress. Behavior is cooperative. General: Smells of bm8 alcohol. Pain: Denies pain. EENT: No signs and/or symptoms were reported regarding the EENT system. Neuro: Level of Consciousness is awake, alert, obeys commands, Oriented to person, place, time, situation. Cardiovascular: Capillary refill < 3 seconds Patient's skin is warm and dry. Respiratory: Airway is patent Respiratory effort is even, unlabored, Respiratory pattern is regular, symmetrical. GI: No signs and/or symptoms were reported involving the gastrointestinal system. : No signs and/or symptoms were reported regarding the genitourinary system. Derm: Skin is intact, Skin is pink, warm \\T\\ dry. normal. Musculoskeletal: No signs and/or symptoms reported regarding the musculoskeletal system. Historical: - Allergies: 00:46 Trazodone; bm8 - PMHx: 00:46 etoh abuse (Seizure); Hypertensive disorder; Seizure; bm8 - Immunization history:: Adult Immunizations up to date. - Infectious Disease History:: Denies. - Social history:: Smoking status: unknown Patient uses alcohol, on a daily basis. Screenin:50 [facility] ED Fall Risk Assessment (Adult) History of falling in the last 3 months, bm8 including since admission No falls in past 3 months (0 pts) Confusion or Disorientation No (0 pts) Intoxicated or Sedated Yes (3 pts) Impaired Gait No (0 pts) Mobility Assist Device Used No (0 pt) Altered Elimination No (0 pt) Score/Fall Risk Level 3 or more points = High Risk Oriented to surroundings, Maintained a safe environment, Hourly rounding (assess needs \\T\\ fall precautionary measures) done. Abuse screen: Denies threats or abuse. Denies injuries from another. Nutritional screening: No deficits noted. Tuberculosis screening: No symptoms or risk factors identified. Assessment: 00:50 Reassessment: see triage assessment. bm8 01:32 Reassessment: Patient appears in no apparent distress at this time. No changes from al5 previously documented assessment. Patient and/or family updated on plan of care and expected duration. Pain level reassessed. Patient is alert, oriented x 3, equal unlabored respirations, skin warm/dry/pink. patient resting comfortably at this time. 03:05 Reassessment: patient eloped. [facility] notified of patient departure. al5 Psych: 00:51 [place] Suicide Severity Screening: In the past month, have you wished you were bm8 or wished you could go to sleep and not wake up? Patient responds "No." "In the past month, have you actually had any thoughts of killing yourself?" Patient responds "no." "In your lifetime, have you ever done anything, started to do anything, or prepared to do anything to end your life?" Patient responds "no.". Subjective: Delusions are denied, Hallucinations are denied. Objective: Patient is cooperative, Speech is Affect is appropriate. Interventions: Searched person for dangerous items. no dangerous belongings on patient. Safety Checks: no safety checks required at this time. Patient uses. Commitment: not committed. Vital Signs: 00:42 BP 117 / 85; Pulse 76; Resp 16; Temp 97.5; Pulse Ox 98% on R/A; Weight 63.5 kg; Height bm8 5 ft. 3 in. ; Pain 0/10; 00:44 BP 117 / 85; Pulse 78; Resp 18; Temp 97.5(O); Pulse Ox 98% on R/A; Weight 63.5 kg; oe Height 5 ft. 3 in. ; 01:00 BP 91 / 55; Pulse 63; Resp 16; Pulse Ox 98% on R/A; al5 02:19 BP 88 / 51; Pulse 70; Resp 16; Pulse Ox 98% on R/A; al5 02:37 BP 111 / 96; Pulse 75; Resp 18; Pulse Ox 100% on R/A; oe 00:44 Body Mass Index 24.80 (63.50 kg, 160.02 cm) oe 00:42 Pain Scale: Adult bm8 01:00 patient asleep al5 02:19 patient asleep al5 ED Course: 00:41 Patient arrived in ED. ec2 00:41 Kaleb Groves MD is Attending Physician. ec2 00:41 Venancio Brown, RN is Primary Nurse. bm8 00:45 Triage completed. bm8 00:50 Arm band placed on right wrist. Patient placed in the treatment room, on a stretcher. bm8 00:50 Patient has correct armband on for positive identification. Bed in low position. Call bm8 light in reach. Side rails up X2. 00:51 No provider procedures requiring assistance completed. Patient did not have IV access bm8 during this emergency room visit. Administered Medications: No medications were administered Medication: 00:50 VIS not applicable for this client. bm8 Outcome: 03:02 Discharge ordered by . ec2 03:03 Eloped from patient exam room, after seeing physician Time discovered patient gone: al5 February 23, 2024 at 03:05 [facility] notified of patient departure. 03:03 Condition: intoxicated 03:06 Patient left the ED. al5 Signatures: Edd Lynn Edwin, MD MD ec2 Venancio Brown, RN RN bm8 Altagracia Soto RN RN al5
[2024-02-23 03:15] VITALS: TEMP 97.5
[2024-02-23 03:22] VITALS: BP 111/96; O2SAT 100
== END 2024-02-23 03:06 | disposition left against medical advice (07) ==
LOC: ER 00:40
DX: F10.129 Alcohol abuse with intoxication, unspecified (principal)
CPT/HCPCS: 99283

== ENCOUNTER 2024-04-08 23:31 | Emergency (ER) | payer SELFPAY ==
--- NOTE | 2024-04-08 23:36 | EDPHYS ---
Physician Documentation [facility] Name: Walt Velazquez Age: 53 yrs Sex: Male : 1970 Arrival Date: 04/08/2024 Time: 23:31 Bed 12 Private MD: ED Physician Jules Lucero HPI: 04/08 23:34 This 53 yrs old Male presents to ER via Unassigned with complaints of ETOH sp4 Abuse. 04/09 22:25 53-year-old male well-known to this emergency department presents with alcohol sp4 intoxication. EMS reports alcohol moderate intoxication. Historical: - Allergies: 04/08 23:56 Trazodone; ha1 - PMHx: 23:56 etoh abuse (Seizure); Hypertensive disorder; Seizure; ha1 - Immunization history:: Adult Immunizations unknown. - Infectious Disease History:: Denies. - Social history:: Smoking status: unknown. - Family history:: not pertinent. ROS: 04/09 22:25 Constitutional: Negative for fever, chills, and weight loss, Moderately intoxicated sp4 male Eyes: Negative for injury, pain, redness, and discharge, ENT: Negative for injury, pain, and discharge, All other systems are negative, Exam: 22:25 Constitutional: This is a well developed, well nourished patient who is awake, alert, sp4 and in no acute distress. Moderate intoxication. Very poor hygiene Head/Face: Normocephalic, atraumatic. Eyes: Pupils equal round and reactive to light, extra-ocular motions intact. Lids and lashes normal. Conjunctiva and sclera are not injected. Cornea within normal limits. Periorbital areas with no swelling, redness, or edema. ENT: Nares patent. No nasal discharge, no septal abnormalities noted. Tympanic membranes are normal and external auditory canals are clear. Oropharynx with no redness, swelling, or masses, exudates, or evidence of obstruction, uvula midline. Mucous membranes moist. Neck: Trachea midline, no thyromegaly or masses palpated, and no cervical lymphadenopathy. Supple, full range of motion without nuchal rigidity, or vertebral point tenderness. Chest/axilla: Normal chest wall appearance and motion. Nontender with no deformity. No lesions are appreciated. Cardiovascular: Regular rate and rhythm with a normal S1 and S2. No gallops, murmurs, or rubs. Normal PMI, no JVD. No pulse deficits. Respiratory: Lungs have equal breath sounds bilaterally, clear to auscultation and percussion. No rales, rhonchi or wheezes noted. No increased work of breathing, no retractions or nasal flaring. Abdomen/GI: Soft, with normal bowel sounds. No distension or tympany. No guarding or rebound. No evidence of tenderness throughout. Back: No spinal tenderness. No costovertebral tenderness. Skin: Warm, dry with normal turgor. Normal color with no rashes, no lesions, and no evidence of cellulitis. MS/ Extremity: Pulses equal, no cyanosis. Neurovascular intact. Full, normal range of motion. Neuro: Awake and alert, GCS 15, oriented to person, place, Cranial nerves II-XII grossly intact. Motor strength 5/5 in all extremities. Sensory grossly intact. Psych: Awake, alert, with orientation to person, . Behavior, mood, and affect are within normal limits Vital Signs: 04/08 23:35 BP 135 / 90; Pulse 91; Resp 17 S; Temp 97.6(T); Pulse Ox 98% on R/A; Weight 61.23 kg; ha1 Height 4 ft. 9 in. ; 23:35 Body Mass Index 29.21 (61.23 kg, 144.78 cm) ha1 Mariia Coma Score: 04/09 22:25 Eye Response: spontaneous(4). Motor Response: obeys commands(6). Verbal Response: sp4 oriented(5). Total: 15. MDM: 04/08 23:36 Medical Screening Exam initiated sp4 04/09 22:28 Differential diagnosis: generalized weakness, hyperventilation, vertigo. Data reviewed: sp4 vital signs, nurses notes, old medical records. ED course: Patient Was evaluated and found to be sober enough for discharge from the emergency room.. Discharged in stable condition.. Administered Medications: No medications were administered Disposition: 22:29 Chart complete. sp4 Disposition Summary: 04/08/24 23:36 Discharge Ordered Notes: Location: Home sp4 Problem: new sp4 Symptoms: have improved sp4 Condition: Stable sp4 Diagnosis - Alcohol abuse with intoxication sp4 - Poor hygiene , Difficult Social Situation sp4 Followup: sp4 - With: Private Physician - When: As needed - Reason: Discharge Instructions: - Discharge Summary Sheet sp4 - Alcohol Intoxication sp4 Forms: - Patient Portal Instructions sp4 Signatures: Mary Brown RN RN ha1 Jules Lucero MD MD sp4
--- OUTSIDE RECORDS SUMMARY | 2024-04-08 23:37 | XMS REPORT | Continuity of Care Document ---
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 Role Phone Pcp-None Primary Care Physician Unavailab Reina Murray MD Attending Clinician + Rafael Byrd MD Attending Clinician [phone] Sulaiman Hawkins DO Attending Clinician +[phone] HEMANT KLEIN Attending Clinician Unavailable Hemant Klein MD Attending Clinician [phone] Pan Pinto Attending Clinician Unavailab JESSICA Gallardo Attending Clinician Unavailable Rayray Driscoll MD Attending Clinician + [phone] Jessica Prado MD Attending Clinician +[phone] Oswald Murphy MD Attending Clinician [phone] DIYA CHOWDHURY Attending Clinician Unavailab Diya Mackey DO Attending Clinician [phone] Fidel Cuellar Attending Clinician Unavailable DIRK YARBROUGH Attending Clinician Unavailable Leticia Rowland Attending Clinician [phone] Dirk Yarbrough MD Attending Clinician [phone] Faye Portillo LVN Attending Clinician [phone] Pia Reddy Attending Clinician [phone] Vinnie Navarro Attending Clinician Unavailable OSWALD MURPHY Admitting Clinician Unavailable Oswald Murphy MD Admitting Clinician [phone] DIYA CHOWDHURY Admitting Clinician UnavailLeticia Gaytan Admitting Clinician Unavailable JESSICA PRADO Admitting Clinician Unavailable Jessica Prado MD Admitting Clinician [phone] Payers Payer Name Policy Type Policy Number Effective Date Expirati on Date Source Problems Condition Name Condition Details Condition Category Status Onset Date Resolution Date Last Treatment Date Treating Clinician Comments Source Alcohol withdrawal syndrome with complicati on Alcohol withdrawal syndrome with complicati on Disease Active 08-10 00:00: 00 [facility] Type 2 diabetes mellitus with other specified complicati on Type 2 diabetes mellitus with other specified complicati on Disease Active 12-29 00:00: 00 [facility] Dyslipidem ia Dyslipidem ia Disease Active 12-29 00:00: 00 [facility] Chest pain, unspecifie d type Chest pain, unspecifie d type Disease Active - 00:00: 00 [facility] Priapism Priapism Disease Active 2013-06- 00:00: 00 [facility] Allergies, Adverse Reactions, Alerts Allergy Name Allergy Type Status Severity Reaction(s) Onset Date Inactive Date Treating Clinician Comments Source No Known Drug Allergie s DA Active U 4-25 00:00: 00 [facility] No Known Drug Allergie s DA Active U 9-16 00:00: 00 [facility] No Known Drug Allergie s DA Active U 3-29 00:00: 00 [facility] No Known Drug Allergie s DA Active U 2019-06 2-16 00:00: 00 [facility] No Known Drug Allergie s DA Active U 2019-06 2-15 00:00: 00 [facility] No Known Drug Allergie s DA Active U 2019-06 2-02 00:00: 00 [facility] Trazodon e Propensi ty to adverse reaction s Active Other - See comments 10-06 00:00: 00 [facility] TRAZODON E DRUG INGREDI Active Other-Cmnt 10-06 00:00: 00 [facility] Social History Social Habit Start Date Stop Date Quantity Comments Source History of tobacco use Cigarette Smoker [facility] Alcoholic beverage intake 2023-12-19 00:00:00 2023-12-19 00:00:00 Current drinker of alcohol (finding) [facility] History of Social function 2023-12-19 00:00:00 2023-12-19 00:00:00 [facility] Exposure to SARS-CoV-2 (event) 2022-11-01 00:00:00 2022-11-11 13:57:00 Not sure [facility] Tobacco use and exposure 2022-08-10 00:00:00 2022-08-10 00:00:00 User of smokeless tobacco [facility] Alcohol intake 2022-08-10 00:00:00 2022-08-10 00:00:00 Current drinker of alcohol (finding) [facility] Tobacco Comment 2022-08-10 00:00:00 2022-08-10 00:00:00 1/2 a pack a day [facility] Sex assigned at 1970 00:00:00 1970 00:00:00 [facility] Smoking Status Start Date Stop Date Source Smokes tobacco daily 2022-08-10 00:00:00 [facility] Medications Ordered Medication Name Filled Medication Name Start Date Stop Date Current Medication? Ordering Clinician Indication Dosage Frequency Signature (SIG) Comments Components Source NaCl 0.9% (NS) bolus infusion 1,000 mL 2023-06 22:30: 00 03-30 23:34 :00 No 1000mL at 999 mL/hr, 1,000 mL, IV Infusion, ONCE, 1 dose, On Thu03/30/24 at 1730, STAT [facility] NaCl 0.9% (NS) bolus infusion 500 mL 2023-06 22:15: 00 03-30 23:34 :00 No 500mL at 999 mL/hr, 500 mL, IV Infusion, ONCE, 1 dose, On Thu03/30/24 at 1715, STAT [facility] NaCl 0.9% (NS) bolus infusion 1,000 mL 11-11 19:45: 00 11-11 20:23 :00 No 1000mL at 999 mL/hr, 1,000 mL, IV Piggyback, ONCE, 1 dose, On Thu11/11/22 at 1445, STAT [facility] multivitami n tablet 1 tablet 08-12 15:00: 00 Yes 1{tbl} 1 tablet, Oral, DAILY, First dose on Thu08/12/22 at 0900, Until Discontinu ed, Routine [facility] foLIC acid (FOLATE) tablet 1 mg 08-12 15:00: 00 Yes 1mg 1 mg, Oral, DAILY, First dose on Thu08/12/22 at 0900, Until Discontinu ed, Routine [facility] foLIC acid 1 mg tablet 08-12 00:00: 00 09-12 04:59 :00 No [id number] 1mg Take 1 tablet by mouth in the morning for 30 days. [facility] oxazepam (SERAX) capsule 15 mg 08-11 20:00: [...] Thu08/13/22 at 0600, Routine [Order 2 End] [facility] thiamine (VITAMIN B1) tablet 100 mg 08-11 16:15: 00 Yes 100mg 100 mg, Oral, DAILY, First dose on Thu08/11/22 at 1015, Until Discontinu ed, [facility]ine [facility] enoxaparin (LOVENOX) injection 40 mg 08-10 23:00: 00 Yes 40mg 40 mg, Subcutaneo us, DAILY, First dose on Thu08/10/22 at 1700, Until Discontinu ed, Routine [facility] NaCl 0.9% (NS) IV infusion 1,000 mL 08-10 15:00: 00 Yes 1000mL at 125 mL/hr, IV Infusion, CONTINUOUS , Starting on Thu08/10/22 at 0900, Until Discontinu ed, Routine [facility] foLIC acid (FOLATE) 5 mg in NaCl 0.9% (NS) piggyback 08-10 15:00: 00 08-11 16:14 :47 No 5mg IV Piggyback, DAILY, First dose on Thu08/10/22 at 0900, Until Discontinu ed, 50 mL [facility] thiamine (VITAMIN B1) 100 mg in NaCl 0.9% (NS) piggyback 08-10 15:00: 00 08-10 16:08 :00 No 100mg IV Piggyback, DAILY, 1 dose, First dose on Thu08/10/22 at 0900, 50 mL [facility] LORazepam (ATIVAN) injection 2 mg 08-10 14:52: 57 Yes 2mg 2 mg, Slow IV Push, Q4HPRN, Starting on Thu08/10/22 at 0852, Until Discontinu ed, Routine, Seizures, Agitation, Anxiety [facility] Sliding Scale Insulin-Reg ular + Fsbg Testing 08-10 13:30: 00 Yes Subcutaneo us, AC+HS, First dose on Thu08/10/22 at 0730, Until Discontinu ed, Routine [facility] oxazepam (SERAX) capsule 15 mg 08-10 12:08: 05 Yes 15mg 15 mg, Oral, Q4HPRN, Starting on Thu08/10/22 at 0608, Until Discontinu ed, Routine, Only while awake for DBP equal to or greater than 100, HR equal to or greater than 100. [facility] dextrose 10% (D10W) bolus infusion 250 mL [...] blood glucose is < 80 mg/dL, repeat.
[facility] glucagon (GLUCAGEN DIAGNOSTIC KIT) injection 1 mg 08-10 12:03: 20 Yes 1mg 1 mg, Intramuscu lar, PRN, Starting on Thu08/10/22 at 0603, Until Discontinu ed, JACIEL, Blood Glucose < or = 70 mg/dL and patient is NPO, unable to swallow or has mental changes. [facility] ondansetron (ZOFRAN (PF)) injection 4 mg 08-10 12:02: 53 Yes 4mg 4 mg, Slow IV Push, Q6HPRN, Starting on Thu08/10/22 at 0602, Until Discontinu ed, Routine, Nausea and Vomiting (N/V) [facility] ibuprofen (MOTRIN IB) tablet 200 mg 08-10 12:02: 45 Yes 200mg 200 mg, Oral, Q6HPRN, Starting on Thu08/10/22 at 0602, Until Discontinu ed, Routine, Pain (scale 1-3) [facility] NaCl 0.9% (NS) bolus infusion 1,000 mL 08-10 10:15: 00 08-10 13:00 :00 No 1000mL at 999 mL/hr, 1,000 mL, IV Infusion, ONCE, 1 dose, On 08/10/22 at 0415, STAT [facility] LORazepam (ATIVAN) injection 0.5 mg 08-10 09:15: 00 08-10 09:19 :00 No .5mg 0.5 mg, Slow IV Push, ONCE, 1 dose, On 08/10/22 at 0315, STAT [facility] LORazepam (ATIVAN) injection 1 mg 08-10 08:00: 00 08-10 07:05 :00 No 1mg 1 mg, Slow IV Push, ONCE NOW, 1 dose, On 08/10/22 at 0200, STAT [facility] thiamine (VITAMIN B1) injection 100 mg 08-10 06:45: 00 08-10 06:52 :00 No 100mg 100 mg, Intravenou s, ONCE, 1 dose, [facility]22 [facility] 0045[facility]IVAN) [facility] 1 mg 08-10 05:15: 00 08-10 05:22 :00 No 1mg 1 mg, Slow IV Push, ONCE, 1 dose, On 08/09/22 at 2315, STAT [facility] ketorolac (TORADOL) injection 15 mg 2021-06 016 16:00: 00 04-06 14:50 :00 No 15mg 15 mg, Slow IV Push, ONCE, 1 dose, On 04/06/22 at 1100, [facility] ondansetron (ZOFRAN (PF)) injection 4 mg 2021-06 0-16 15:45: 00 04-06 14:50 :00 No 4mg 4 mg, Slow IV Push, ONCE, 1 dose, On 04/06/22 at 1045, [facility] oxazepam (SERAX) capsule 15 mg 12-31 06:28: 17 01-01 06:29 :00 No 15mg 15 mg, Oral, Q12H TAPER, 2 doses, First dose on Thu12/31/21 at 0130, Last dose on Thu12/31/21 at 1330, Routine [facility] multivitami n tablet 12-31 00:00: 00 Yes [id number] 1{tbl} Take 1 tablet by mouth in the morning. [facility] thiamine 100 mg tablet 12-31 00:00: 00 Yes [id number] 100mg Take 1 tablet by mouth in the morning. [facility] aspirin 81 mg chewable tablet 12-31 00:00: 00 Yes [id number] 81mg Take 1 tablet by mouth in the morning. [facility] foLIC acid 1 mg tablet 12-31 00:00: 00 01-31 04:59 :00 No [id number] 1mg Take 1 tablet by mouth in the morning for 30 days. [facility] metFORMIN 500 mg tablet 12-30 00:00: 00 Yes [id number] 500mg Take 1 tablet by mouth in the morning and 1 tablet in the evening. Take with meals. [facility] aspirin chewable tablet 81 mg 12-29 14:00: 00 Yes 81mg 81 mg, Oral, DAILY, First dose on Thu12/29/21 at 0900, Until Discontinu ed, Routine [facility] sulfur hexafluorid e microsphr (LUMASON) injection 5 mL 12-29 13:45: 00 12-29 13:45 :00 No [id number] 5mL 5 mL, Intravenou s, ONCE, 1 dose, On Thu12/29/21 at 0845, Routine
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 Restricted medication : STEFANIE GORMAN [facility] enoxaparin (LOVENOX) injection 40 mg 12-29 13:00: 00 Yes 40mg 40 mg, Subcutaneo us, Q24H, First dose on 12/29/21 at 0800, Until Discontinu ed, Routine [facility] Sliding Scale Insulin - Lispro (HumaLOG) + Fsbg Testing 12-29 13:00: 00 Yes Subcutaneo us, TID MEALS+HS, First dose on 12/29/21 at 0800, Until Discontinu ed, Routine [facility] diazePAM (VALIUM) injection 10 mg 12-29 05:30: 00 12-29 04:40 :00 No 10mg 10 mg, Intravenou s, ONCE, 1 dose, On 12/29/21 at 0030, Routine [facility] diazePAM (VALIUM) injection 10 mg 12-29 04:15: 00 12-29 03:17 :00 No 10mg 10 mg, Intravenou s, ONCE, 1 dose, On 12/28/21 at 2315, Routine [facility] diazePAM (VALIUM) injection 5 mg 12-29 03:45: 01 Yes 5mg 5 mg, Intravenou s, QIDPRN, Starting on 12/28/21 at 2245, Until Discontinu ed, Routine, Seizures, Agitation [facility] foLIC acid (FOLATE) tablet 1 mg 12-29 03:45: 00 Yes 1mg 1 mg, Oral, DAILY, First dose on 12/28/21 at 2245, Until Discontinu ed, Routine [facility] thiamine (VITAMIN B1) tablet 100 mg 12-29 03:45: 00 Yes 100mg 100 mg, Oral, DAILY, First dose (after last modificati on) on 12/28/21 at 2245, Until Discontinu ed, Routine [facility] glucagon (GLUCAGEN DIAGNOSTIC KIT) injection 1 mg 12-29 03:42: 19 Yes 1mg 1 mg, Intramuscu lar, PRN, Starting on 12/28/21 at 2242, Until Discontinu ed, JACIEL, Blood Glucose < or = 70 mg/dL and patient is unable to swallow or has mental changes. [facility] dextrose 10% (D10W) bolus infusion 250 mL [...] blood glucose is < 80 mg/dL, repeat.
[facility] LORazepam (ATIVAN) injection 1 mg 12-29 03:30: 00 12-29 02:32 :00 No 1mg 1 mg, Intravenou s, ONCE, 1 dose, On 12/28/21 at 2230, Routine
Is the medication being used for status epilepticu s? No [facility] oxazepam (SERAX) capsule 15 mg 12-29 00:28: 20 Yes 15mg 15 mg, Oral, Q4HPRN, Starting on 12/28/21 at 1928, Until Discontinu ed, Routine, Only while awake for DBP equal to or greater than 100, HR equal to or greater than 100. [facility] ondansetron (ZOFRAN (PF)) injection 4 mg 12-29 00:23: 47 Yes 4mg 4 mg, Slow IV Push, Q6HPRN, Starting on 12/28/21 at 1923, Until Discontinu ed, Routine, Nausea and Vomiting (N/V) [facility] acetaminoph en (TYLENOL) tablet 650 mg 12-29 00:23: 37 Yes 650mg 650 mg, Oral, Q6HPRN, Starting on 12/28/21 at 1923, Until Discontinu ed, Routine, Pain (scale 1-3), Temp > 38.5 C [facility] chlordiazeP OXIDE (LIBRIUM) capsule 25 mg 12-28 23:15: 00 12-28 23:24 :00 No 25mg 25 mg, Oral, ONCE, 1 dose, On 12/28/21 at 1815, JACIEL [facility] NaCl 0.9% (NS) bolus infusion 2,000 mL 12-28 22:45: 00 12-28 23:18 :00 No 2000mL at 999 mL/hr, 2,000 mL, IV Infusion, ONCE, 1 dose, On 12/28/21 at 1745, JACIEL [facility] LORazepam (ATIVAN) injection 1 mg 12-28 20:45: 00 12-28 20:49 :00 No 1mg 1 mg, Slow IV Push, ONCE, 1 dose, On 12/28/21 at 1545, STAT
Is the medication being used for status epilepticu s? No [facility] acetaminoph en (TYLENOL) 500 mg tablet 10-06 00:00: 00 Yes 500mg Take 1 Tab by mouth every 6 (six) hours as needed for Pain. [facility] Vital Signs Vital Name Observation Time Observation Value Comments S ource Systolic blood pressure 2024-03-31 02:27:00 100 mm[Hg] [facility] Diastolic blood pressure 2024-03-31 02:27:00 77 mm[Hg] [facility] Heart rate 2024-03-31 02:27:00 76 /min [facility] Body temperature 2024-03-31 02:27:00 36.67 Theresa [facility] Respiratory rate 2024-03-31 02:27:00 14 /min [facility] Oxygen saturation in Arterial blood by Pulse oximetry 2024-03-31 02:27:00 99 /min [facility] Body height 2024-03-30 22:08:00 160 cm [facility] Body weight 2024-03-30 22:08:00 58.968 kg [facility] BMI 2024-03-30 22:08:00 23.03 kg/m2 [facility] Systolic blood pressure 2023-12-13 05:16:00 125 mm[Hg] [facility] Diastolic blood pressure 2023-12-13 05:16:00 90 mm[Hg] [facility] Heart rate 2023-12-13 05:16:00 77 /min [facility] Body temperature 2023-12-13 05:16:00 36.06 Theresa [facility] Respiratory rate 2023-12-13 05:16:00 16 /min [facility] Oxygen saturation in Arterial blood by Pulse oximetry 2023-12-13 05:16:00 98 /min [facility] Body height 2023-12-13 01:35:00 157.5 cm [facility] Body weight 2023-12-13 01:35:00 65.772 kg [facility] BMI 2023-12-13 01:35:00 26.52 kg/m2 [facility] Systolic blood pressure 2023-11-05 21:00:00 106 mm[Hg] [facility] Diastolic blood pressure 2023-11-05 21:00:00 70 mm[Hg] [facility] Heart rate 2023-11-05 21:00:00 74 /min [facility] Body temperature 2023-11-05 21:00:00 36.5 Theresa [facility] Respiratory rate 2023-11-05 21:00:00 21 /min [facility] Oxygen saturation in Arterial blood by Pulse oximetry 2023-11-05 21:00:00 98 /min [facility] Body height 2023-11-05 19:59:00 160 cm [facility] Body weight 2023-11-05 19:59:00 63.504 kg [facility] BMI 2023-11-05 19:59:00 24.80 kg/m2 [facility] Systolic blood pressure 2022-11-11 20:31:31 116 mm[Hg] [facility] Diastolic blood pressure 2022-11-11 20:31:31 77 mm[Hg] [facility] Heart rate 2022-11-11 20:31:31 84 /min [facility] Respiratory rate 2022-11-11 20:31:31 12 /min [facility] Oxygen saturation in Arterial blood by Pulse oximetry 2022-11-11 20:31:31 90 /min [facility] Body temperature 2022-11-11 18:49:00 37.11 Theresa [facility] Body height 2022-11-11 18:49:00 160 cm [facility] Body weight 2022-11-11 18:49:00 68.04 kg [facility] BMI 2022-11-11 18:49:00 26.57 kg/m2 [facility] Body temperature 2022-08-11 14:00:00 36.5 Theresa [facility] Systolic blood pressure 2022-08-11 10:00:00 116 mm[Hg] [facility] Diastolic blood pressure 2022-08-11 10:00:00 71 mm[Hg] [facility] Heart rate 2022-08-11 10:00:00 70 /min [facility] Respiratory rate 2022-08-11 10:00:00 16 /min [facility] Body weight 2022-08-11 10:00:00 65.499 kg [facility] BMI 2022-08-11 10:00:00 25.58 kg/m2 [facility] Oxygen saturation in Arterial blood by Pulse oximetry 2022-08-11 10:00:00 100 /min [facility] Body height 2022-08-10 22:12:00 160 cm [facility] Systolic blood pressure 2022-04-06 16:00:00 125 mm[Hg] [facility] Diastolic blood pressure 2022-04-06 16:00:00 75 mm[Hg] [facility] Heart rate 2022-04-06 16:00:00 87 /min [facility] Respiratory rate 2022-04-06 16:00:00 22 /min [facility] Oxygen saturation in Arterial blood by Pulse oximetry 2022-04-06 16:00:00 98 /min [facility] Body temperature 2022-04-06 14:41:00 37 Theresa [facility] Body height 2022-04-06 14:41:00 160 cm [facility] Body weight 2022-04-06 14:41:00 63.504 kg [facility] BMI 2022-04-06 14:41:00 24.80 kg/m2 [facility] Systolic blood pressure 2022-01-20 02:27:00 121 mm[Hg] [facility] Diastolic blood pressure 2022-01-20 02:27:00 75 mm[Hg] [facility] Heart rate 2022-01-20 02:27:00 79 /min [facility] Respiratory rate 2022-01-20 02:27:00 12 /min [facility] Oxygen saturation in Arterial blood by Pulse oximetry 2022-01-20 02:27:00 98 /min [facility] Body temperature 2022-01-19 22:19:00 36.44 Theresa [facility] Body weight 2022-01-19 22:19:00 60.328 kg [facility] BMI 2022-01-19 22:19:00 23.56 kg/m2 [facility] Systolic blood pressure 2021-12-30 20:52:00 134 mm[Hg] [facility] Diastolic blood pressure 2021-12-30 20:52:00 76 mm[Hg] [facility] Heart rate 2021-12-30 20:52:00 67 /min [facility] Body temperature 2021-12-30 20:26:00 36.67 Theresa [facility] Oxygen saturation in Arterial blood by Pulse oximetry 2021-12-30 20:26:00 99 /min [facility] Respiratory rate 2021-12-30 16:21:00 18 /min [facility] Body weight 2021-12-30 08:27:00 60.464 kg [facility] BMI 2021-12-30 08:27:00 23.61 kg/m2 [facility] Body height 2021-12-29 01:29:00 160 cm [facility] Procedures Procedure Date / Time Performed Performing Clinician Source URINALYSIS 2024-03-31 01:10:00 Reina Diego [facility] CT HEAD WO CONTRAST 2024-03-30 22:37:17 Reina Arthur [facility] INFLUENZA A/B RSV COVID NAAT 2024-03-30 22:30:00 Reina Diego [facility] TROPONIN I 2024-03-30 22:19:00 Reina Diego [facility] COMP. METABOLIC PANEL ([id number]) 2024-03-30 22:19:00 Reina Diego [facility] ETHANOL 2024-03-30 22:19:00 Reina Diego [facility] CBC WITH DIFF 2024-03-30 22:19:00 Reina Diego [facility] N-TERMINAL PRO-BNP 2024-03-30 [facility]:19[facility]23-12-13 03:32:00 Rafael Byrd [facility] XR CHEST 1 VW 2023-12-13 02:18:14 Rafael Byrd [facility] LIPASE 2023-12-13 02:07:00 Rafael Byrd [facility] TROPONIN I 2023-12-13 02:07:00 Rafael Byrd [facility] COMP. METABOLIC PANEL ([id number]) 2023-12-13 02:07:00 Rafael Byrd [facility] CBC WITH DIFF 2023-12-13 02:07:00 Rafael Byrd [facility] XR CHEST 1 VW 2023-11-05 20:09:00 Sulaiman Hawkins [facility] LIPASE 2023-11-05 20:01:00 Sulaiman Hawkins [facility] MAGNESIUM 2023-11-05 20:01:00 Singer [facility] TROPONIN I 2023-11-05 20:01:00 Singer [facility] COMP. METABOLIC PANEL ([id number]) 2023-11-05 20:01:00 Singer [facility] CBC WITH DIFF 2023-11-05 20:01:00 Singer [facility] N-TERMINAL PRO-BNP 2023-11-05 20:01:00 Singer [facility] MAGNESIUM 2022-11-11 19:05:00 Jessica [facility] BASIC METABOLIC PANEL (NA, K, CL, CO2, GLUCOSE, BUN, CREATININE, CA) 2022-11-11 19:05:00 Jessica [facility] ETHANOL 2022-11-11 19:05:00 Jessica [facility] CBC WITH DIFF 2022-11-11 19:05:00 Jessica [facility] POCT GLUCOSE (AUTOMATED) 2022-08-11 13:36:00 Arvind Prado [facility] PHOSPHORUS 2022-08-11 10:35:00 Jessica Prado [facility] MAGNESIUM 2022-08-11 10:35:00 Eve [facility] AMMONIA, PLASMA 2022-08-11 10:35:00 Jessica Prado [facility] COMP. METABOLIC PANEL ([id number]) 2022-08-11 10:35:00 Jessica Prado [facility] CBC WITH DIFF 2022-08-11 10:35:00 Oswald Murphy [facility] POCT GLUCOSE (AUTOMATED) 2022-08-11 02:15:00 Arvind Prado [facility] POCT GLUCOSE (AUTOMATED) 2022-08-10 23:10:00 Arvind Prado [facility] POCT GLUCOSE (AUTOMATED) 2022-08-10 18:20:00 Arvind Prado [facility] POCT GLUCOSE (AUTOMATED) 2022-08-10 14:11:00 Arvind Prado [facility] POCT GLUCOSE (AUTOMATED) 2022-08-10 10:59:00 Gopal Driscoll [facility] COVID-19 (ID NOW RAPID TESTING) 2022-08-10 07:17:00 Rayray Driscoll [facility] LAB ONLY COVID INTERPRETATION 2022-08-10 07:17:00 Rayray Driscoll [facility] HB ECG ROUTINE & RHYTHM STRIP 2022-08-10 06:03:48 Rayray Driscoll [facility] URINALYSIS 2022-08-10 05:46:[address] [facility] URINE DRUG (IMMUNOASSAY) - COMPREHENSIVE DRUG SCREEN W/O REFLEX 2022-08-10 05:45[facility] 2022-08-10 05:16:00 Ray[facility]coll [facility] LIPASE 2022-08-10 05:16:[address] [facility] MAGNESIUM 2022-08-10 05:16:00 Rayray Driscoll [facility] TROPONIN I 2022-08-10 05:16:[address] [facility] COMP. METABOLIC PANEL ([id number]) 2022-08-10 05:16:00 Rayray Driscoll [facility] ETHANOL 2022-08-10 05:16:[address] [facility] CBC WITH DIFF 2022-08-10 05:16:00 Rayray Driscoll [facility] N-TERMINAL PRO-BNP 2022-08-10 05:16:00 Rayray Driscoll [facility] CRITICAL CARE 2022-08-10 04:52:00 Rayray Driscoll [facility] XR CHEST 1 VW 2022-04-06 14:51:50 Diya Chowdhury [facility]ivFormerly [facility] LIPASE 2022-04-06 14:42:00 Diya Chowdhury [facility] TROPONIN I 2022-04-06 14:42:00 Diya Chowdhury Un [facility] COMP. METABOLIC PANEL (64421) 2022-04-06 14:42:00 Diya Chowdhury [facility] CBC WITH DIFF 2022-04-06 14:42:00 Diya Chowdhury [facility] PROTHROMBIN TIME / INR 2022-04-06 14:42:00 Diya Chowdhury [facility] ACTIVATED PARTIAL THRMPLAS NELDA 2022-04-06 14:42:00 Diya Chowdhury [facility] LACTIC ACID WHOLE BLOOD 2022-01-20 00:22:00 Leticia Baldwin [facility] URINE DRUG (IMMUNOASSAY) - COMPREHENSIVE DRUG SCREEN 2022-01-19 23:10:00 Leticia Baldwin [facility] URINALYSIS 2022-01-19 23:10:00 Leticia Baldwin [facility] TROPONIN I 2022-01-19 23:00:00 Leticia Baldwin [facility] COMP. METABOLIC PANEL (46677) 2022-01-19 23:00:00 Leticia Baldwin [facility] LITHIUM 2022-01-19 23:00:00 Leticia Baldwin [facility] ETHANOL 2022-01-19 23:00:00 Leticia Baldwin [facility] CBC WITH DIFF 2022-01-19 23:00:00 Leticia Baldwin [facility] COVID-19 (ID NOW RAPID TESTING) 2022-01-19 23:00:00 Leticia Baldwin [facility] CT HEAD WO CONTRAST 2022-01-19 22:49:00 Leticia Baldwin [facility] XR CHEST 1 VW 2022-01-19 22:41:00 Leticia Baldwin [facility] POCT GLUCOSE (AUTOMATED) 2022-01-19 22:25:00 Leticia Baldwin [facility] POCT GLUCOSE (AUTOMATED) 2021-12-30 21:55:00 Arvind Prado [facility] POCT GLUCOSE (AUTOMATED) 2021-12-30 16:21:00 Arivnd Prado [facility] POCT GLUCOSE (AUTOMATED) 2021-12-30 12:30:00 Arvind Prado [facility] HEPATIC FUNCTION PANEL (58827) (ALB,T.PRO,BILI T,BU/BC,ALT,AST,ALK PHOS) 2021-12-30 09:28:00 Maira Gaitan [facility] POCT GLUCOSE (AUTOMATED) 2021-12-30 02:11:00 Arvind Prado [facility] POCT GLUCOSE (AUTOMATED) 2021-12-29 21:41:00 Arvind Prado [facility] POCT GLUCOSE (AUTOMATED) 2021-12-29 16:37:00 Arvind Prado [facility] TRANSTHORACIC ECHO (TTE) COMPLETE W/ CONTRAST 2021-12-29 13:05:00 Jessica Prado [facility] POCT GLUCOSE (AUTOMATED) 2021-12-29 12:41:00 Arvind Prado [facility] TROPONIN I 2021-12-29 09:42:00 Eve [facility] TROPONIN I 2021-12-29 04:55:00 Jessica Prado [facility] CT HEAD WO CONTRAST 2021-12-28 21:18:22 Poppy Renteria [facility] AMMONIA, PLASMA 2021-12-28 21:00:00 Pia Renteria [facility] COVID-19 (ID NOW RAPID TESTING) 2021-12-28 20:42:00 Pia Renteria [facility] LAB ONLY COVID INTERPRETATION 2021-12-28 20:42:00 Pia Renteria [facility] URINE DRUG (IMMUNOASSAY) - COMPREHENSIVE DRUG SCREEN W/O REFLEX 2021-12-28 20:42:00 Pia Renteria [facility] URINALYSIS 2021-12-28 20:40:00 Pia Renteria [facility] N-TERMINAL PRO-BNP 2021-12-28 20:40:00 Corina Renteria [facility] TROPONIN I 2021-12-28 20:40:00 Pia Renteria [facility] THYROID STIMULATING HORMONE 2021-12-28 20:40:00 Jessica Prado [facility] COMP. METABOLIC PANEL (11119) 2021-12-28 20:40:00 Pia Renteria [facility] LIPID PANEL (07318)(TOTAL CHOLESTEROL, TRIGLYCERIDES, HDL) 2021-12-28 20:40:00 Demetrius Langford [facility] ETHANOL 2021-12-28 20:40:00 Demetrius Langford [facility] CBC WITH DIFF 2021-12-28 20:40:00 Pia Renteria [facility] GLYCOSYLATED HEMOGLOBIN (A1C) 2021-12-28 20:40:00 Jessica Prado [facility] PROTHROMBIN TIME / INR 2021-12-28 20:40:00 Lesly Renteria [facility] XR CHEST 1 VW 2021-12-28 20:16:00 Pia Renteria [facility] HB ECG ROUTINE & RHYTHM STRIP 2021-12-28 20:04:59 Pia Renteria [facility] Encounters Start Date/Time End Date/Time Encounter Type Admission Type Attending [facility] Care Facility Care Department Encounter ID Source 2021-09-17 16:45:00 Inpatient [facility] [id number] [facility] 2020-06-06 16:07:00 Inpatient [facility] [id number] 2020-06-06 06:20:00 Inpatient [facility] [id number] 2020-06-05 19:35:00 Inpatient [facility] [id number] [facility] 2020-05-23 19:53:00 Inpatient [facility] [id number] [facility] 2020-05-23 19:53:00 Inpatient [facility] [id number] [facility] 2024-03-30 17:04:00 2024-03-30 22:00:00 Emergency Reina Diego [facility] [id number] 350.1.13.10 4.2.7.2.686 [id number] [facility] 2023-12-12 20:44:00 2023-12-13 00:22:00 Emergency Rafael Byrd [facility] 1.2.840.114 350.1.13.10 4.2.7.2.686 [id number] [facility] 2023-11-05 14:54:00 2023-11-05 16:27:00 Emergency Sulaiman Hawkins [facility] 1.2.840.114 350.1.13.10 4.2.7.2.686 [id number] [facility] 2022-11-11 13:50:00 2022-11-11 16:07:00 Emergency X EDUARDO KLEINS [facility] [id number] [facility] 2022-11-11 13:50:00 2022-11-11 16:07:00 Emergency Hemant Klein [facility] 1.2.840.114 350.1.13.10 4.2.7.2.686 [id number] [facility] 2022-10-14 20:59:00 2022-10-14 20:59:00 Emergency [facility] [id number] [facility] 2022-10-14 20:59:00 2022-10-14 20:59:00 Emergency Emergency AfPan brothers [facility] [id number] [facility] 2022-08-09 22:59:00 2022-08-11 13:02:00 Outpatient JESSICA GAINES [facility] [id number] [facility] 2022-08-09 22:59:00 2022-08-11 13:02:00 Emergency Rayray Driscoll [facility] 1.2840.114 350.1.13.10 4.2.7.2.686 [id number] [facility] 2022-04-06 09:38:00 2022-04-06 11:42:00 Emergency X DIYA CHOWDHURY [facility] ERT [id number] [facility] 2022-04-06 09:38:00 2022-04-06 11:42:00 Emergency Diya Chowdhury [facility] 1.2840.114 350.1.13.10 4.2.7.2.686 [id number] [facility] 2022-03-07 12:38:00 2022-03-07 12:38:00 Emergency [facility] [id number] [address] [place] [address] 2022-03-07 12:38:00 2022-03-07 12:38:00 Emergency Emergency Fidel Cuellar [facility] [id number] [facility] 2022-01-19 17:18:00 2022-01-19 22:00:00 Emergency X DIRK YARBROUGH [facility] ERT [id number] [facility] 2022-01-19 17:18:00 2022-01-19 22:00:00 Emergency Leticia Baldwin Julio C [facility] 1.2840.114 350.1.13.10 4.2.7.2.686 [id number] [facility] 2021-12-31 00:00:00 2021-12-31 00:00:00 Transition of Care Faye Portillo 1.2.840.114 350.1.13.10 4.2.7.2.686 [id number] [facility] 2021-12-28 14:53:00 2021-12-30 17:42:00 Inpatient X JESSICA PRADO [facility] [id number] [facility] 2021-12-28 14:53:00 2021-12-30 17:42:00 Hospital Encounter Pia Renteria Jelani [facility] 1.2.840.114 350.1.13.10 4.2.7.2.686 [id number] [facility] 2021-09-17 16:47:00 2021-09-17 16:47:00 Emergency [facility] [id number] [facility] 2020-06-06 16:07:00 2020-06-06 16:07:00 Emergency [facility] [id number] [facility] Results Test Description Test Time Test Comments Results Result Comments Source CT HEAD WO CONTRAST 23:17:03 EXAM: CT HEAD WO CONTRAST HISTORY: 53 years-old Male; Provided indication: Cerebral hemorrhagesuspected. TECHNIQUE: Axial CT of the head was performed and reconstructed at 5 mmintervals. Coronal and sagittal reformatted images were generated. COMPARISON: CT head 01/19/2022 FINDINGS: Enlargement of the ventricles and sulci is suggestive of mild cerebralvolume loss. No midline shift or pathological extra-axial fluid collectionis present. The basal cisterns are unremarkable. No acute intracranial hemorrhage or significant mass effect is visualized.No parenchymal attenuation abnormality is seen. The og-white matterdifferentiation is preserved. The mastoid air cells and visualized paranasal air sinuses are clear.Chronic fracture of the left lamina papyracea. The calvarium and centralskull base are unremarkable. 1 cm frontal scalp epidermal inclusion cyst. [facility]:00:35 ALCOHOL<10mg/dL03/30/2024 6:00 PM [facility] Mrolfryb15-118 Toxic>100 Depression of STEAMER TENDER>400 Fatalities ReportedUnB[facility] TaylorN-Terminal Lht-Bjw7385-83-09 23:00:04* Test Item Value Reference Range Interpretation Comme nts NT-proBNP (test code = 61032-0) 93 pg/mL <=125 Lab Interpretation (test cod e = 01399-3) [facility] (09800)2024-03-30 22:51:22* Test Item Value Reference Range Interpretation Comme nts NA (test code = 8564053253) 133 mmol/L 135-145 L K (test code = 3523628722) 4.2 mmol/L 3.5-5.0 CL (test code = 1378444347) 105 mmol/L 98-108 CO2 TOTAL (test code = 6306386965) 20 mmol/L 23-31 L AGAP (test code = 5163495306) 8 2-16 BUN (test code = 9003235594) 19 mg/dL 7-23 GLUCOSE (test code = 9134797833) 153 mg/dL 70-110 H CREATININE (test code = 2160-0) 1.08 mg/dL 0.60-1.25 TOTAL BILI (test code = 2277467898) 0.3 mg/dL 0.1-1.1 CALCIUM (test code = 3504677117) 10.1 mg/dL 8.6-10.6 T PROTEIN (test code = 3130572828) 6.5 g/dL 6.3-8.2 ALBUMIN (test code = 2419322853) 3.9 g/dL 3.5-5.0 ALK PHOS (test code = 6590201177) 93 U/L 34-122 ALTv (test code = 1742-6) 14 U/L 5-50 AST(SGOT) (test code = 1374286094) 17 U/L 13-40 eGFR (test code = 31748-1) 81.5 mL/min/1.73m2 CKD-EPI eGFR (2020). Assuming creatinine has been stable day-to-day for at least three months, the eGFR indicates Category G2 (60 - 89 mL/min/1.73 m2) Lab Interpretation (test code = 96841-6) Abnormal [facility] with [id number] 22:39:22* Test Item Value Reference Range Interpretation Comme nts WBC (test code = 6690-2) 8.27 4.20-10.70 RBC (test code = 789-8) 3.99 4.26-5.52 L HGB (test code = 718-7) 12.2 g/dL 12.2-16.4 HCT (test code = 4544-3) 36.9 % 38.4-49.3 L MCV (test code = 787-2) 92.5 fL 81.7-95.6 MCH (test code = 785-6) 30.6 pg 26.1-32.7 MCHC (test code = 786-4) 33.1 g/dL 31.2-35.0 RDW-SD (test code = 07845-7) 45.6 fL 38.5-51.6 RDW-CV (test code = 788-0) 13.3 % 12.1-15.4 PLT (test code = 777-3) 289 150-328 MPV (test code = 68305-8) 8.7 fL 9.8-13.0 L NRBC/100 WBC (test code = 2302411706) 0.0 0.0-10.0 NRBC x10^3 (test code = 4658190962) See_Comment [Automated messa ge] The system which generated this result transmitted reference range: 10*3/?L. The reference range was not used to interpret this result as normal/abnormal. GRAN MAT (NEUT) % (test code = 770-8) 72.9 % IMM GRAN % (test code = 0530920930) 0.40 % LYMPH % (test code = 736-9) 15.2 % MONO % (test code = 5905-5) 8.9 % EOS % (test code = 713-8) 1.8 % BASO % (test code = 706-2) 0.8 % GRAN MAT x10^3(ANC) (test code = 3522523548) 6.02 10*3/uL 1.99-6.95 IMM GRAN x10^3 (test code = 4986845910) 0.03 10*3/uL 0.00-0.06 LYMPH x10^3 (test code = 731-0) 1.26 10*3/uL 1.09-3.23 MONO x10^3 (test code = 742-7) 0.74 10*3/uL 0.36-1.02 EOS x10^3 (test code = 711-2) 0.15 10*3/uL 0.06-0.53 BASO x10^3 (test code = 704-7) 0.07 10*3/uL 0.01-0.09 Lab Interpretation (test code = 43363-9) Abnormal [facility] [id number] 04:40:11* Test Item Value Reference Range Interpretation Comme nts TROPONIN I (test code = 2562262999) 0.002 ng/mL <=0.034 JUAN ALBERTO (test code = [...] of biotin. Lab Interpretation (test code = 65564-8) Normal [facility] [id number] 02:57:27* Test Item Value Reference Range Interpretation Comme nts TROPONIN I (test code = 6250503805) 0.003 ng/mL <=0.034 JUAN ALBERTO (test code [...] of biotin. Lab Interpretation (test code = 06869-9) Normal [facility]. METABOLIC PANEL (75805)2023-12-13 02:46:25* Test Item Value Reference Range Interpretation Comme nts NA (test code = 1031471063) 144 mmol/L 135-145 K (test code = 3687931286) 3.9 mmol/L 3.5-5.0 CL (test code = 6576455457) 110 mmol/L 98-108 H CO2 TOTAL (test code = 5416102146) 20 mmol/L 23-31 L AGAP (test code = 4570213869) 14 2-16 BUN (test code = 5646260924) 13 mg/dL 7-23 GLUCOSE (test code = 0109583978) 163 mg/dL 70-110 H CREATININE (test code = 2160-0) 0.63 mg/dL 0.60-1.25 TOTAL BILI (test code = 3033156878) 0.3 mg/dL 0.1-1.1 CALCIUM (test code = 0280055788) 9.0 mg/dL 8.6-10.6 T PROTEIN (test code = 4503824747) 7.2 g/dL 6.3-8.2 ALBUMIN (test code = 4808866181) 4.1 g/dL 3.5-5.0 ALK PHOS (test code = 9188709865) 129 U/L 34-122 H ALTv (test code = 1742-6) 15 U/L 5-50 AST(SGOT) (test code = 2453072208) 34 U/L 13-40 eGFR (test code = 02576-6) 113.7 mL/min/1.73m2 CKD-EPI eGFR (2020). Assuming creatinine has been stable day-to-day for at least three months, the eGFR indicates Category G1 (>= 90 mL/min/1.73 m2) Lab Interpretation (test code = 88368-3) Abnormal [facility], [id number] 02:45:25* Test Item Value Reference Range Interpretation Comme nts LIPASE (test code = 3671517790) 47 U/L 0-220 Lab Interpretation (test cod e = 46125-9) Normal [facility] CHE[facility] 1 [id number] 02:40:35History: chest pain . Exam: XR CHEST 1 VW Date: 12/12/2023 9:15 PM Ordering provider: RAFAEL BYRD Technical quality: Adequate Comparison: 11/05/2023. Findings: Frontal view of the chest is obtained. The cardiac silhouette is normal in size. No evidence of infiltrate,pleural effusion, CHF, or pneumothorax.[facility] WITH [id number] 02:33:48* Test Item Value Reference Range Interpretation [...] 33.2 g/dL 31.2-35.0 RDW-SD (test code = 64174-6) 54.4 fL 38.5-51.6 H RDW-CV (test code = 788-0) 15.9 % 12.1-15.4 H PLT (test code = 777-3) 318 150-328 MPV (test code = 74081-1) 8.5 fL 9.8-13.0 L NRBC/100 WBC (test code = 4522692674) 0.0 0.0-10.0 NRBC x10^3 (test code = 9656973289) See_Comment [Automated messa ge] The system which generated this result transmitted reference range: 10*3/?L. The reference range was not used to interpret this result as normal/abnormal. GRAN MAT (NEUT) % (test code = 770-8) 50.1 % IMM GRAN % (test code = 3319505438) 0.40 % LYMPH % (test code = 736-9) 37.6 % MONO % (test code = 5905-5) 6.8 % EOS % (test code = 713-8) 4.1 % BASO % (test code = 706-2) 1.0 % GRAN MAT x10^3(ANC) (test code = 2953055116) 3.66 10*3/uL 1.99-6.95 IMM GRAN x10^3 (test code = 4119731812) 0.03 10*3/uL 0.00-0.06 LYMPH x10^3 (test code = 731-0) 2.75 10*3/uL 1.09-3.23 MONO x10^3 (test code = 742-7) 0.50 10*3/uL 0.36-1.02 EOS x10^3 (test code = 711-2) 0.30 10*3/uL 0.06-0.53 BASO x10^3 (test code = 704-7) 0.07 10*3/uL 0.01-0.09 Lab Interpretation (test code = 91538-8) Abnormal [facility] 1 [id number] 20:15:30HISTORY: Chest pain. TECHNIQUE: Portable AP view of the chest is obtained. Comparison is beingmade with 04/06/2022 study. FINDINGS: No acute pneumonia. No pneumothorax or pleural effusion orpulmonarycongestion detected. Cardiac size is within normal limits.Prominent osteophytes are seen along right left vertebral margins at middleand lower thoracic spines. CONCLUSIONS: No signs of acute cardiopul monary disease.[facility] 19:45:56 ALCOHOL<10mg/dL11/11/2022 2:45 PM [facility]<10 Dntnqwek37-083 Toxic>100 Depression of STEAMER TENDER>400 Fatalities ReportedUnBaylor Scott & [facility] – TaylorBASIC METABOLIC PANEL (NA, K, CL, CO2, GLUCOSE, BUN, CREATININE, CA)2022-11-11 19:41:47* Test Item Value Reference Range Interpretation Comme nts NA (test code = 0047589334) 138 mmol/L 135-145 K (test code = 0738776136) 4.8 mmol/L 3.5-5.0 CL (test code = 2360804963) 103 mmol/L 98-108 CO2 TOTAL (test code = 2696788364) 26 mmol/L 23-31 AGAP (test code = 4442621408) 9 2-16 BUN (test code = 8436792043) 17 mg/dL 7-23 GLUCOSE (test code = 3875927835) 219 mg/dL 70-110 H CREATININE (test code = 5071273868) 0.72 mg/dL 0.60-1.25 CALCIUM (test code = 6159481917) 10.0 mg/dL 8.6-10.6 eGFR (test code = 2940071099) 114.6 mL/min/1.73m2 JUAN ALBERTO (test code = [...] imaging tests). Lab Interpretation (test code = 78363-1) Abnormal [facility]20[facility]-23 19:41:47* Test Item Value Reference Range Interpretation Comme nts MAGNESIUM (test code = 1423575804) 1.8 mg/dL 1.7-2.4 Lab Interpretation (test cod e = 18316-5) Normal [facility] Northwest[facility] WITH [id number] 19:25:26* Test Item Value Reference Range Interpretation Comme nts WBC (test code = 6690-2) 6.82 See_Comment [Automated Netccm] The system which generated this result transmitted [...] 33.9 g/dL 31.2-35.0 RDW-SD (test code = 76872-8) 46.0 fL 38.5-51.6 RDW-CV (test code = 788-0) 13.5 % 12.1-15.4 PLT (test code = 777-3) 237 See_Comment [Automated messa ge] The system which generated this result transmitted reference range: 150 - 328 10*3/?L. The reference range was not used to interpret this result as normal/abnormal. MPV (test code = 07585-6) 8.9 fL 9.8-13.0 L NRBC/100 WBC (test code = 4710199233) 0.0 See_Comment [Automated [employer] ssage] The system which generated this result transmitted reference range: 0.0 - 10.0 /100 WBCs. The reference range was not used to interpret this result as normal/abnormal. NRBC x10^3 (test code = 3132064815) See_Comment [Automated messa ge] The system which generated this result transmitted reference range: 10*3/?L. The reference range was not used to interpret this result as normal/abnormal. GRAN MAT (NEUT) % (test code = 770-8) 71.2 % IMM GRAN % (test code = 4347166445) 0.30 % LYMPH % (test code = 736-9) 18.2 % MONO % (test code = 5905-5) 8.4 % EOS % (test code = 713-8) 1.0 % BASO % (test code = 706-2) 0.9 % GRAN MAT x10^3(ANC) (test code = 4927357952) 4.86 10*3/uL 1.99-6.95 IMM GRAN x10^3 (test code = 2805182545) 0.00-0.06 LYMPH x10^3 (test code = 731-0) 1.24 10*3/uL 1.09-3.23 MONO x10^3 (test code = 742-7) 0.57 10*3/uL 0.36-1.02 EOS x10^3 (test code = 711-2) 0.07 10*3/uL 0.06-0.53 BASO x10^3 (test code = 704-7) 0.06 10*3/uL 0.01-0.09 Lab Interpretation (test code = 86650-6) Abnormal [facility], Urinalysis Rflx Cult/Wktbs2473-66-47 22:20:00* Test Item Value Reference Range Interpretation Comme nts Color,Urine (test code = UCOL) Yellow Yellow Clarity,Urine (test code = UCLAR) Clear Clear Ph, Urine (test code = UPH) 7.0 5.0-9.0 N Specific [place],Urine (test code = USG) 1.020 1.005-1.030 N [...] code = ULEU) Negative mg/dL Negative Drug Screen,Bhgad2327-05-25 22:20:00* Test Item Value Reference Range Interpretation [...] UPROP) Negative Negative Complete Blood Count Auto Dipn9282-03-35 21:21:00* Test Item Value Reference Range Interpretation [...] code = NRBCP) 0 % Comprehensive Metabolic Vgqir1015-57-09 21:21:00* Test Item Value Reference Range Interpretation [...] Reported eGFR is based on the CKD-EPI 2021 equation thatdoes not use a race coefficient. Additional information canbe found at:[email or web address] 5.pdf ([email or web address]) [Automated message] The system [...] = ALP) 134 U/L 46-116 H Ethanol Gazzr4165-05-16 21:21:00* Test Item Value Reference Range Interpretation Comme nts Ethanol (test code = ETOH) < 3 mg/dL The pharmacologi yudy response to blood alcohol levels mayvary from individual to individual. The fatal concentrationhas been reported to be >400mg/dL. POCT GLUCOSE (AUTOMATED)2022-08-11 13:40:35* Test Item Value Reference Range Interpretation Comme [facility] POCT GLU (test code = 6730478642) 121 mg/dL 70-110 H Lab Interpretation (test cod e = 30414-5) Abnormal [facility] GLUCOSE (AUTOMATED)2022-08-11 02:18:58* Test Item Value Reference Range Interpretation Comme [facility] POCT GLU (test code = 0913851825) 183 mg/dL 70-110 H Lab Interpretation (test cod e = 99276-1) Abnormal [facility] GLUCOSE (AUTOMATED)2022-08-10 23:16:11* Test Item Value Reference Range Interpretation Comme [facility] POCT GLU (test code = 2691771543) 176 mg/dL 70-110 H Lab Interpretation (test cod e = 26872-6) Abnormal [facility] GLUCOSE (AUTOMATED)2022-08-10 18:22:51* Test Item Value Reference Range Interpretation Comme nts POCT GLU (test code = 5839976647) 165 mg/dL 70-110 H Lab Interpretation (test cod e = 76929-5) Abnormal [facility] GLUCOSE (AUTOMATED)2022-08-10 14:18:05* Test Item Value Reference Range Interpretation Comme nts POCT GLU (test code = 9459766124) 138 mg/dL 70-110 H Lab Interpretation (test cod e = 98670-0) Abnormal [facility] GLUCOSE (AUTOMATED)2022-08-10 11:01:21* Test Item Value Reference Range Interpretation Comme nts POCT GLU (test code = 1038164343) 143 mg/dL 70-110 H Lab Interpretation (test cod e = 14235-6) Abnormal [facility]OP[facility] [id number] 06:51:18* Test Item Value Reference Range Interpretation Comme nts TROPONIN I (test code = 7886566475) 0.008 ng/mL <=0.034 JUAN ALBERTO (test code [...] of biotin. Lab Interpretation (test code = 87669-4) Normal [facility] NorthwestN-TERMINAL UUU-[id number] 06:47:37* Test Item Value Reference Range Interpretation Comme nts NT-proBNP (test code = 7642462250) 37 pg/mL <=125 JUAN ALBERTO (test code = JUAN ALBERTO) Biotin has been reported to cause a negative bias, interpret results relative to patient's use of biotin. Lab Interpretation (test code = 57413-3) Normal [facility]OL2023-02-19 06:25:52 ALCOHOL<10mg/dL08/10/2022 12:25 AM [facility]<10 Jrzteaxz03-677 Toxic>100 Depression of STEAMER TENDER>400 F[facility] METABOLIC PANEL (85350)2022-08-10 06:19:15* Test Item Value Reference Range Interpretation Comme nts NA (test code = 9239785288) 135 mmol/L 135-145 K (test code = 0514049274) 4.3 mmol/L 3.5-5.0 CL (test code = 5142667230) 98 mmol/L 98-108 CO2 TOTAL (test code = 9803112812) 30 mmol/L 23-31 AGAP (test code = 4114660797) 7 2-16 BUN (test code = 9363745082) 11 mg/dL 7-23 GLUCOSE (test code = 3838459972) 153 mg/dL 70-110 H CREATININE (test code = 4164881333) 0.77 mg/dL 0.60-1.25 TOTAL BILI (test code = 4783987242) 0.9 mg/dL 0.1-1.1 CALCIUM (test code = 1269984820) 10.0 mg/dL 8.6-10.6 T PROTEIN (test code = 1181059625) 7.7 g/dL 6.3-8.2 ALBUMIN (test code = 4007185659) 4.6 g/dL 3.5-5.0 ALK PHOS (test code = 3222709795) 92 U/L 34-122 ALTv (test code = 1742-6) 35 U/L 5-50 AST(SGOT) (test code = 9009053733) 42 U/L 13-40 H eGFR (test code = 4516096080) 106.1 mL/min/1.73m2 JUAN ALBERTO (test code = [...] imaging tests). Lab Interpretation (test code = 51888-7) [facility] 06:19:15* Test Item Value Reference Range Interpretation Comme nts MAGNESIUM (test code = 3658486070) 2.2 mg/dL 1.7-2.4 Lab Interpretation (test cod e = 93592-0) Normal [facility] 06:18:55* Test Item Value Reference Range Interpretation Comme nts LIPASE (test code = 6824795956) 18 U/L 0-220 Lab Interpretation (test cod e = 67186-6) Normal [facility] NorthwestCREATINE [id number] 06:18:55* Test Item Value Reference Range Interpretation Comme nts CK (test code = 0454966555) 174 U/L 33-194 Lab Interpretation (test cod e = 21240-9) Normal [facility] NorthwestCB WITH [id number] 06:02:35* Test Item Value Reference Range Interpretation Comme nts WBC (test code = 6690-2) 7.50 See_Comment [Automated Net[employer]m] The system which generated this result transmitted reference range: 4.20 - 10.70 10*3/?L. The reference range was not used to interpret this result as normal/abnormal. RBC (test code = 789-8) 4.80 See_Comment [Automated stail[employer] technologiesa ge] The system which generated this result [...] 32.4 g/dL 31.2-35.0 RDW-SD (test code = 39395-9) 50.2 fL 38.5-51.6 RDW-CV (test code = 788-0) 14.3 % 12.1-15.4 PLT (test code = 777-3) 241 See_Comment [Automated [employer] technologiesa ge] The system which generated this result transmitted reference range: 150 - 328 10*3/?L. The reference range was not used to interpret this result as normal/abnormal. MPV (test code = 85878-6) 8.6 fL 9.8-13.0 L NRBC/100 WBC (test code = 8853338525) 0.0 See_Comment [Automated [employer] ssage] The system which generated this result transmitted reference range: 0.0 - 10.0 /100 WBCs. The reference range was not used to interpret this result as normal/abnormal. NRBC x10^3 (test code = 5722080064) See_Comment [Automated [employer] technologiesa ge] The system which generated this result transmitted reference range: 10*3/?L. The reference range was not used to interpret this result as normal/abnormal. GRAN MAT (NEUT) % (test code = 770-8) 63.9 % IMM GRAN % (test code = 3377293225) 0.50 % LYMPH % (test code = 736-9) 17.6 % MONO % (test code = 5905-5) 16.5 % EOS % (test code = 713-8) 0.7 % BASO % (test code = 706-2) 0.8 % GRAN MAT x10^3(ANC) (test code = 6352222991) 4.79 10*3/uL 1.99-6.95 IMM GRAN x10^3 (test code = 8457969683) 0.04 10*3/uL 0.00-0.06 LYMPH x10^3 (test code = 731-0) 1.32 10*3/uL 1.09-3.23 MONO x10^3 (test code = 742-7) 1.24 10*3/uL 0.36-1.02 H EOS x10^3 (test code = 711-2) 0.05 10*3/uL 0.06-0.53 L BASO x10^3 (test code = 704-7) 0.06 10*3/uL 0.01-0.09 Lab Interpretation (test code = 26962-0) Abnormal [facility] NorthwestTROPONIN [id number] 15:15:32* Test Item Value Reference Range Interpretation Comments TROPONIN I (test code = 0260272167) 0.007 ng/mL See_Comment [Automated message] The system [...] of biotin. Lab Interpretation (test code = 39340-2) Normal [facility] NorthwestaPTT2022-10-16 15:08:29* Test Item Value Reference Range Interpretation Comme nts APTT Patient (test code = 3173-2) See_Comment [Automated message] The system which generated this result transmitted reference range: 23 - 38 Seconds. The reference range was not used to interpret this result as normal/abnormal. JUAN ALBERTO (test code = JUAN ALBERTO) The [facility] patient population mean normal value for aPTT is 30 seconds. Lab Interpretation (test code = 14427-5) Normal [facility] NorthwestPROTHROMBIN TIME / [id number] 15:06:28* Test Item Value Reference Range Interpretation Comme nts PROTIME PATIENT (test code = 5964-2) See_Comment [Automated st[employer] technologiesa ge] The system which generated this result transmitted reference range: 12.0 - 14.7 Seconds. The reference range was not used to interpret this result as normal/abnormal. INR (test code = 6301-6) Normal INR <1.1; Warfarin Therapeutic range 2.0 to 3.0 or 2.5 to 3.5, depending upon the indications. Lab Interpretation (test code = 58391-8) Normal [facility] NorthwestCOMP. METABOLIC PANEL (87550)2022-04-06 15:03:31* Test Item Value Reference Range Interpretation Comme nts NA (test code = 3902821438) 136 mmol/L 135-145 K (test code = 2579594901) 5.0 mmol/L 3.5-5 CL (test code = 5806145176) 104 mmol/L 98-108 CO2 TOTAL (test code = 2712639227) 21 mmol/L 23-31 L AGAP (test code = 2217343972) 2-16 BUN (test code = 0404789607) 11 mg/dL 7-23 GLUCOSE (test code = 0728070835) 162 mg/dL 70-110 H CREATININE (test code = 7841724094) 0.52 mg/dL 0.6-1.25 L TOTAL BILI (test code = 2205844102) 1.0 mg/dL 0.1-1.1 CALCIUM (test code = 9953922974) 9.3 mg/dL 8.6-10.6 T PROTEIN (test code = 8961503525) 7.4 g/dL 6.3-8.2 ALBUMIN (test code = 9987986664) 4.4 g/dL 3.5-5 ALK PHOS (test code = 4629831739) 134 U/L 34-122 H ALTv (test code = 1742-6) 17 U/L 5-50 AST(SGOT) (test code = 1719196053) 38 U/L 13-40 eGFR (test code = 0044263195) mL/min/1.73m2 JUAN ALBERTO (test code = JUAN [...] imaging tests). Lab Interpretation (test code = 96006-0) Abnormal [facility] NorthwestLIPASE, [id number] 15:03:31* Test Item Value Reference Range Interpretation Comme nts LIPASE (test code = 7410816928) 29 U/L 0-220 Lab Interpretation (test cod e = 20754-1) Normal [facility]CB WITH [id number] 14:51:49* Test Item Value Reference Range Interpretation Comme nts WBC (test code = 6690-2) See_Comment [Automated Netccm] The system which generated this result transmitted [...] 34.0 g/dL 31.2-35 RDW-SD (test code = 07652-1) 45.9 fL 38.5-51.6 RDW-CV (test code = 788-0) 13.3 % 12.1-15.4 PLT (test code = 777-3) See_Comment [Automated messa ge] The system which generated this result transmitted reference range: 150 - 328 10*3/?L. The reference range was not used to interpret this result as normal/abnormal. MPV (test code = 31187-4) 8.4 fL 9.8-13 L NRBC/100 WBC (test code = 4408657508) See_Comment [Automated [employer] ssage] The system which generated this result transmitted reference range: 0.0 - 10.0 /100 WBCs. The reference range was not used to interpret this result as normal/abnormal. NRBC x10^3 (test code = 0173152733) See_Comment [Automated messa ge] The system which generated this result transmitted reference range: 10*3/?L. The reference range was not used to interpret this result as normal/abnormal. GRAN MAT (NEUT) % (test code = 770-8) 63.0 % IMM GRAN % (test code = 6195592177) 0.50 % LYMPH % (test code = 736-9) 25.2 % MONO % (test code = 5905-5) 9.8 % EOS % (test code = 713-8) 0.3 % BASO % (test code = 706-2) 1.2 % GRAN MAT x10^3(ANC) (test code = 7641886546) 3.73 10*3/uL 1.99-6.95 IMM GRAN x10^3 (test code = 0105853572) 0.03 10*3/uL 0-0.06 LYMPH x10^3 (test code = 731-0) 1.49 10*3/uL 1.09-3.23 MONO x10^3 (test code = 742-7) 0.58 10*3/uL 0.36-1.02 EOS x10^3 (test code = 711-2) 0.06-0.53 L BASO x10^3 (test code = 704-7) 0.07 10*3/uL 0.01-0.09 Lab Interpretation (test code = 72031-1) Abnormal [facility] NorthwestUA, Urinalysis Rflx Cult/Lisms5443-45-51 13:53:00* Test Item Value Reference Range Interpretation Comme nts Color,Urine (test code = UCOL) Yellow Yellow Clarity,Urine (test code = UCLAR) Cloudy Clear A Ph, Urine (test code = UPH) 7.5 5.0-9.0 N Specific [place],Urine (test code = USG) 1.025 1.005-1.030 N [...] = ULEU) Negative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 generated. COMPARISON: CT head 01/19/2022 FINDINGS: Enlargement of the ventricles and sulci is suggestive of mild cerebral volume loss. No midline shift or pathological extra-axial fluid collection is present. The basal cisterns are unremarkable. No acute intracranial hemorrhage or significant mass effect is visualized. No parenchymal attenuation abnormality is seen. The og-white matter differentiation is preserved. The mastoid air cells and visualized paranasal air sinuses are clear. Chronic fracture of the left lamina papyracea. The calvarium and central skull base are unremarkable. 1 cm frontal scalp epidermal inclusion cyst. IMPRESSION No acute intracranial abnormality. Preliminary Report Dictated by Resident: Fannie Puente MD., have reviewed this study and agree with the above report. Lab Results: Lab Results CBC WITH DIFF - Abnormal Result Value Ref Range WBC 8.27 4.20 - 10.70 10*3/?L RBC 3.99 (*) 4.26 - 5.52 10*6/?L HGB 12.2 12.2 - 16.4 g/dL HCT 36.9 (*) 38.4 - 49.3 % MCV 92.5 81.7 - 95.6 fL MCH 30.6 26.1 - 32.7 pg MCHC 33.1 31.2 - 35.0 g/dL RDW-SD 45.6 38.5 - 51.6 fL RDW-CV 13.3 12.1 - 15.4 % PLT 289 150 - 328 10*3/?L MPV 8.7 (*) 9.8 - 13.0 fL NRBC/100 WBC 0.0 0.0 - 10.0 /100 WBCs NRBC x10 3 <0.01 10*3/?L GRAN MAT (NEUT) % 72.9 % IMM GRAN % 0.40 % LYMPH % 15.2 % MONO % 8.9 % EOS % 1.8 % BASO % 0.8 % GRAN MAT x10 3 (ANC) 6.02 1.99 - 6.95 10*3/uL IMM GRAN x10 3 0.03 0.00 - 0.06 10*3/uL LYMPH x10 3 1.26 1.09 - 3.23 10*3/uL MONO x10 3 0.74 0.36 - 1.02 10*3/uL EOS x10 3 0.15 0.06 - 0.53 10*3/uL BASO x10 3 0.07 0.01 - 0.09 10*3/uL COMP. METABOLIC PANEL (08671) - Abnormal NA 133 (*) 135 - 145 mmol/L K 4.2 3.5 - 5.0 mmol/L CL 105 98 - 108 mmol/L CO2 TOTAL 20 (*) 23 - 31 mmol/L AGAP 8 2 - 16 BUN 19 7 - 23 mg/dL GLUCOSE 153 (*) 70 - 110 mg/dL CREATININE 1.08 0.60 - 1.25 mg/dL TOTAL BILI 0.3 0.1 - 1.1 mg/dL CALCIUM 10.1 8.6 - 10.6 mg/dL T PROTEIN 6.5 6.3 - 8.2 g/dL ALBUMIN 3.9 3.5 - 5.0 g/dL ALK PHOS 93 34 - 122 U/L ALTv 14 5 - 50 U/L AST(SGOT) 17 13 - 40 U/L eGFR 81.5 mL/min/1.73m2 URINALYSIS - Abnormal APPEARANCE Clear Clear COLOR Yellow Yellow PH 5.0 4.8 - 8.0 SP GRAVITY 1.017 1.003 - 1.030 GLU U QUAL Normal Normal BLOOD Negative Negative KETONES Negative Negative PROTEIN Negative Negative UROBILIN 4.0 mg/dL (*) Normal BILIRUBIN Negative Negative NITRITE Negative Negative LEUK MAGNUS Negative Negative RBC/HPF 2 0 - 3 HPF WBC/HPF 3 0 - 5 HPF BACTERIA Few (*) Negative MUCOUS Slight (*) Negative LPF SQ EPITH <1 HPF HYAL CAST 11 (*) <=2 LPF TROPONIN I - Normal TROPONIN I 0.004 <=0.034 ng/mL N-TERMINAL PRO-BNP - Normal NT-proBNP 93 <=125 pg/mL INFLUENZA A/B RSV COVID NAAT - Normal Influenza A NAAT Negative Negative Influenza B NAAT Negative Negative RSV by PCR Negative Negative SARS-CoV-2 NAAT Negative Negative ETHANOL ALCOHOL <10 mg/dL EKG: If EKG completed, see Procedure Note. Orders and Treatments: Orders Placed This Encounter Procedures CT HEAD WO CONTRAST Cbc with Diff Comp. Metabolic Panel (49086) Troponin I N-Terminal Pro-Bnp Urinalysis Influenza A B RSV COVID NAAT Ethanol Lab Only COVID Interpretation Orders Placed This Encounter Medications NaCl 0.9% (NS) bolus infusion 500 mL NaCl 0.9% (NS) bolus infusion 1,000 mL First Provider Eval: ED Events Date/Time Event User Comments 03/30/241708 Medical Screening Begins REINA DIEGO MD -- 03/30/24 170 First Provider Evaluation REINA DIEGO MD -- ED COURSE Diagnosis/Impression as of 03/30/24 2221 Weakness Dehydration Procedures: Procedures MDM: Medical Decision Making Cherellesara Festus Velazquez Sr. is a 53 year-old male presenting with generalized weakness symptoms as above. Patient received IV fluids with improvement in symptoms and blood pressure. BP 100/77 | Pulse 71 | Temp 36.8 ?C (98.2 ?F) (Oral) | Resp 14 | Ht 1.6 m (5' 3") | Wt 59 kg (130 lb) | SpO2 98% | BMI 23.03 kg/m? Labs and imaging reviewed, findings discussed with patient. Plan for discharge home with PCP follow up. Problems Addressed: Dehydration: acute illness or injury Weakness: acute illness or injury Details: generalized weakness, no focal deficits Amount and/or Complexity of Data Reviewed Labs: ordered. Radiology: ordered. Risk Prescription drug management. Flowsheet Documentation: Scoring Tools: No data recorded Disposition/Condition: ED Disposition ED Disposition Disch - Home Condition Stable Comment -- Discharge Medications: Patient's Medications START taking these medications No medications on file CONTINUE taking these medications which have NOT CHANGED ACETAMINOPHEN (TYLENOL) 500 MG TABLET Take 1 Tab by mouth every 6 (six) hours as needed for Pain. ASPIRIN 81 MG CHEWABLE TABLET Take 1 tablet by mouth in the morning. METFORMIN 500 MG TABLET Take 1 tablet by mouth in the morning and 1 tablet in the evening. Take with meals. MULTIVITAMIN TABLET Take 1 tablet by mouth in the morning. THIAMINE 100 MG TABLET Take 1 tablet by mouth in the morning. START taking Modified Medications as Prescribed No medications on file STOP taking these medications No medications on file Follow-up: Electronically signed by: Reina Diego MD 03/30/242221 T [facility] [employer] 2023-12-13 00:22:14 Pt given printed and verbal [...] with steady gait, in no apparent distress, [facility] [employer] 2023-12-12 22:20:05 Pt removed all monitoring equipment [facility] 2023-12-12 20:33:23 Pt brought in by [place] [employer] for medical clearance. [facility] check pt out on scene but after pt complained of chest pain. [place] [employer] brought pt in for clearance for county. Zeina Albrecht RN [facility] 2023-11-05 16:26:20 Pt discharged with diagnosis of CP. Printed and verbal instructions reviewed with and given to pt. Prescriptions given x 0. Pt verbalized understanding of teaching and recommended follow-up. Denies questions or concerns at this time. Pt ambulatory to holding room to await transportation at discharge. Appears in no apparent distress. No ataxia noted. [facility]. Renae Saldivar RN [facility] 2023-11-05 14:56:10 Walt Velazquez Sr. is a 52 year old male arrive via [facility] c/o " throbbing ball in chest" since 0600 has been constant, pt immediately asks for food, T Emani Gomez RN [facility]
--- NOTE | 2024-04-08 23:59 | ER ---
Nurse's Notes [facility] Name: Walt Velazquez Age: 53 yrs Sex: Male : 1970 Arrival Date: 04/08/2024 Time: 23:31 Bed 12 Private MD: Diagnosis: Alcohol abuse with intoxication;Poor hygiene , Difficult Social Situation Presentation: 04/08 23:35 Chief complaint: EMS states: PAIN ON LEG, STATED " JUST COMING OVER BECAUSE POLICE ha1 OFFICERS WERE BOTHERING ME" REPORTS USING ALCOHOL. 23:35 Coronavirus screen: Vaccine status: At this time, unable to obtain information related ha1 to travel outside the [place] Ebola Screen: No symptoms or risks identified at this time. Initial Sepsis Screen: Does the patient meet any 2 criteria? No. Patient's initial sepsis screen is negative. Does the patient have a suspected source of infection? No. Patient's initial sepsis screen is negative. Risk Assessment: Do you want to hurt yourself or someone else? Patient reports no desire to harm self or others. Onset of symptoms was April 08, 2024. 23:35 Method Of Arrival: EMS: [facility] ha1 23:35 Acuity: LATASHA 4 ha1 Triage Assessment: 23:35 General: Appears comfortable, Behavior is NOT FOLLOWING COMMAND . Pain: Complains of ha1 pain in right leg and left leg Pain does not radiate. Neuro: Level of Consciousness is awake, alert, Oriented to person, place, time, situation. Cardiovascular: Patient's skin is warm and dry. Respiratory: Airway is patent Respiratory effort is even, unlabored, Respiratory pattern is regular, symmetrical. Historical: - Allergies: 23:56 Trazodone; ha1 - PMHx: 23:56 etoh abuse (Seizure); Hypertensive disorder; Seizure; ha1 - Immunization history:: Adult Immunizations unknown. - Infectious Disease History:: Denies. - Social history:: Smoking status: unknown. - Family history:: not pertinent. Screenin:55 Abuse screen: Denies threats or abuse. Denies injuries from another. ha1 23:55 [facility] ED Fall Risk Assessment (Adult) History of falling in the last 3 months, ha1 including since admission Yes- single mechanical fall (1 pt) Confusion or Disorientation No (0 pts) Intoxicated or Sedated Yes (3 pts) Impaired Gait No (0 pts) Mobility Assist Device Used No (0 pt) Altered Elimination No (0 pt) Score/Fall Risk Level 3 or more points = High Risk Oriented to surroundings, Maintained a safe environment, Educated pt \\T\\ family on fall prevention, incl call for assistance when getting out of bed, Hourly rounding (assess needs \\T\\ fall precautionary measures) done. Nutritional screening: No deficits noted. Tuberculosis screening: No symptoms or risk factors identified. Assessment: 23:50 Reassessment: PATIENT EXPOSING GENITALS. REFUSING TO BE DISCHARGE. [employer] ha1 WAS CALLED. Psych: 23:45 [place] Suicide Severity Screening: In the past month, have you wished you were ha1 or wished you could go to sleep and not wake up? Patient responds "No." "In the past month, have you actually had any thoughts of killing yourself?" Patient responds "no." "In your lifetime, have you ever done anything, started to do anything, or prepared to do anything to end your life?" Patient responds "no.". Subjective: Patient's mood is irritable. Objective: Patient is uncooperative, Speech is normal, Affect is appropriate. Interventions:. Safety Checks:. Patient uses of liquor. Vital Signs: 23:35 BP 135 / 90; Pulse 91; Resp 17 S; Temp 97.6(T); Pulse Ox 98% on R/A; Weight 61.23 kg; ha1 Height 4 ft. 9 in. ; 23:35 Body Mass Index 29.21 (61.23 kg, 144.78 cm) ha Mariia Coma Score: 04/09 22:25 Eye Response: spontaneous(4). Motor Response: obeys commands(6). Verbal Response: sp4 oriented(5). Total: 15. ED Course: 04/08 23:33 Patient arrived in ED. jj6 23:34 Jules Lucero MD is Attending Physician. sp4 23:35 Arm band placed on right wrist. ha1 23:55 Patient has correct armband on for positive identification. Placed in gown. Bed in low ha1 position. Call light in reach. Side rails up X2. 23:55 No provider procedures requiring assistance completed. ha1 23:55 Patient did not have IV access during this emergency room visit. ha1 23:56 Triage completed. ha1 Administered Medications: No medications were administered Medication: 23:55 VIS not applicable for this client. ha1 Outcome: 23:36 Discharge ordered by . sp4 23:55 Discharged to home ambulatory, ha1 23:55 Condition: stable ha1 23:55 Discharge instructions given to patient, Instructed on discharge instructions, follow up and referral plans. Demonstrated understanding of instructions, follow-up care, 23:58 Patient left the ED. ha1 Signatures: Tracie Wuj6 Mary Brown RN RN ha1 Jules Lucero MD MD sp4
[2024-04-09 05:29] VITALS: BP 135/90; TEMP 97.6; O2SAT 98
== END 2024-04-08 23:58 | disposition home or self-care (01) ==
LOC: ER 23:31
DX: F10.129 Alcohol abuse with intoxication, unspecified (principal); Z60.9 Problem related to social environment, unspecified
CPT/HCPCS: 99283

== ENCOUNTER 2024-04-09 08:07 | Emergency (ER) | payer SELFPAY ==
--- OUTSIDE RECORDS SUMMARY | 2024-04-09 08:13 | XMS REPORT | Continuity of Care Document ---
Author Name Unknown Address [address] [facility] [address] [place] [address] [facility] [address] [facility] [address] [place] [address] Care Team Providers Care Provisioning Specialist Name Role Phone Pcp-None Primary Care Physician Unavailab Reina Murray MD Attending Clinician + Rafael Byrd MD Attending Clinician [phone] Sulaiman Hawkins DO Attending Clinician +[phone] HEMANT KLEIN Attending Clinician Unavailable Hemant Klein MD Attending Clinician [phone] Pan Pinto Attending Clinician Unavailab JESSICA Gallardo Attending Clinician Unavailable Rayray Driscoll MD Attending Clinician [phone] Jessica Prado MD Attending Clinician +[phone] Oswald Murphy MD Attending Clinician [phone] DIYA CHOWDHURY Attending Clinician Unavailab Diya Mackey DO Attending Clinician [phone] Fidel Cuellar Attending Clinician Unavailable DIRK YARBROUGH Attending Clinician Unavailable Leticia Rowland Attending Clinician [phone] Dirk Yarbrough MD Attending Clinician [phone] Faye Portillo LVN Attending Clinician [phone] Pia Reddy Attending Clinician Vinnie Navarro Attending Clinician Unavailable OSWALD MURPHY Admitting Clinician Unavailable Oswald Murphy MD Admitting Clinician [phone] DIYA CHOWDHURY Admitting Clinician UnavailLeticia Gaytan Admitting Clinician Unavailable JESSICA PRADO Admitting Clinician Unavailable Jessica Prado MD Admitting Clinician [phone] Payers Payer Name Policy Type Policy Number Effective Date Expirati on Date Source Problems Condition Name Condition Details Condition Category Status Onset Date Resolution Date Last Treatment Date Treating Clinician Comments Source Alcohol withdrawal syndrome with complicati on Alcohol withdrawal syndrome with complicati on Disease Active 08-10 00:00: 00 [facility] Type 2 diabetes mellitus with other specified complicati on Type 2 diabetes mellitus with other specified complicati on Disease Active 12-29 00:00: 00 [facility] Dyslipidem ia Dyslipidem ia Disease Active 12-29 00:00: 00 [facility] Chest pain, unspecifie d type Chest pain, unspecifie d type Disease Active - 00:00: 00 [facility] Priapism Priapism Disease Active 2013-06- 00:00: 00 [facility] Allergies, Adverse Reactions, Alerts Allergy Name Allergy Type Status Severity Reaction(s) Onset Date Inactive Date Treating Clinician Comments Source No Known Drug Allergie s DA Active U 4-25 00:00: 00 [facility] No Known Drug Allergie s DA Active U 9-16 00:00: 00 [facility] No Known Drug Allergie s DA Active U 3-29 00:00: 00 [facility] No Known Drug Allergie s DA Active U 2019-06 2-16 00:00: 00 [facility] No Known Drug Allergie s DA Active U 2019-06 2-15 00:00: 00 [facility] No Known Drug Allergie s DA Active U 2019-06 2-02 00:00: 00 [facility] Trazodon e Propensi ty to adverse reaction s Active Other - See comments 10-06 00:00: 00 [facility] TRAZODON E DRUG INGREDI Active Other-Cmnt 10-06 00:00: 00 [facility] Social History Social Habit Start Date Stop Date Quantity Comments Source History of tobacco use Cigarette Smoker [facility] Alcoholic beverage intake 2023-12-19 00:00:00 2023-12-19 00:00:00 Current drinker of alcohol (finding) [facility] History of Social function 2023-12-19 00:00:00 2023-12-19 00:00:00 [facility] Exposure to SARS-CoV-2 [...] a day [facility] Sex assigned at 1970 00:00:00 1970 00:00:00 [facility] 1 dose, On Thu03/30/24 at 1730, STAT [facility] NaCl 0.9% (NS) bolus infusion 500 mL 2023-06 22:15: 00 03-30 23:34 :00 No 500mL at 999 mL/hr, 500 mL, IV Infusion, ONCE, 1 dose, On Thu03/30/24 at 1715, STAT [facility] NaCl 0.9% (NS) bolus infusion 1,000 mL 11-11 19:45: 00 11-11 20:23 :00 No 1000mL at 999 mL/hr, 1,000 mL, IV Piggyback, ONCE, 1 dose, On Thu11/11/22 at 1445, STAT [facility] multivitami n tablet 1 tablet 08-12 15:00: 00 Yes 1{tbl} 1 tablet, Oral, DAILY, First dose on Thu08/12/22 at 0900, Until Discontinu ed, Routine [facility] foLIC acid (FOLATE) tablet 1 mg 08-12 15:00: 00 Yes 1mg 1 mg, Oral, DAILY, First dose on Thu08/12/22 at 0900, Until Discontinu ed, Routine [facility] foLIC acid 1 mg tablet 08-12 00:00: 00 09-12 04:59 :00 No [id number] 1mg Take 1 tablet by mouth in the morning for 30 days. [facility] oxazepam (SERAX) capsule [...] 0600, Routine [Order 2 End] [facility] thiamine (VITAMIN B1) tablet 100 mg 08-11 16:15: 00 Yes 100mg 100 mg, Oral, DAILY, First dose on Thu08/11/22 at 1015, Until Discontinu ed, [facility]ine [facility]ox[facility] (LOVENOX) injection 40 mg 08-10 23:00: 00 Yes 40mg 40 mg, Subcutaneo us, DAILY, First dose on Thu08/10/22 at 1700, Until Discontinu ed, Routine [facility] NaCl 0.9% (NS) IV infusion 1,000 mL 08-10 15:00: 00 Yes 1000mL at 125 mL/hr, IV Infusion, CONTINUOUS , Starting on Thu08/10/22 at 0900, Until Discontinu ed, Routine [facility] foLIC acid (FOLATE) 5 mg in NaCl 0.9% (NS) piggyback 08-10 15:00: 00 08-11 16:14 :47 No 5mg IV Piggyback, DAILY, First dose on Thu08/10/22 at 0900, Until Discontinu ed, 50 mL [facility] thiamine (VITAMIN B1) 100 mg in NaCl 0.9% (NS) piggyback 08-10 15:00: 00 08-10 16:08 :00 No 100mg IV Piggyback, DAILY, 1 dose, First dose on Thu08/10/22 at 0900, 50 mL [facility] LORazepam (ATIVAN) injection 2 mg 08-10 14:52: 57 Yes 2mg 2 mg, Slow IV Push, Q4HPRN, Starting on Thu08/10/22 at 0852, Until Discontinu ed, Routine, Seizures, Agitation, Anxiety [facility] Sliding Scale Insulin-Reg ular + Fsbg Testing 08-10 13:30: 00 Yes Subcutaneo us, AC+HS, First dose on Thu08/10/22 at 0730, Until Discontinu ed, Routine [facility] ox[facility]ep[facility] (SERAX) capsule 15 mg 08-10 12:08: 05 Yes 15mg 15 mg, Oral, Q4HPRN, Starting on Thu08/10/22 at 0608, Until Discontinu ed, Routine, Only while awake for DBP equal to or greater than 100, HR equal to or greater than 100. [facility] dextrose 10% (D10W) bolus [...] blood glucose is < 80 mg/dL, repeat.
[facility] glucagon (GLUCAGEN DIAGNOSTIC KIT) injection 1 mg 08-10 12:03: 20 Yes 1mg 1 mg, Intramuscu lar, PRN, Starting on Thu08/10/22 at 0603, Until Discontinu ed, JACIEL, Blood Glucose < or = 70 mg/dL and patient is NPO, unable to swallow or has mental changes. [facility] ondansetron (ZOFRAN (PF)) injection 4 mg 08-10 12:02: 53 Yes 4mg 4 mg, Slow IV Push, Q6HPRN, Starting on Thu08/10/22 at 0602, Until Discontinu ed, Routine, Nausea and Vomiting (N/V) [facility] ibuprofen (MOTRIN IB) tablet 200 mg 08-10 12:02: 45 Yes 200mg 200 mg, Oral, Q6HPRN, Starting on Thu08/10/22 at 0602, Until Discontinu ed, Routine, Pain (scale 1-3) [facility] NaCl 0.9% (NS) bolus infusion 1,000 mL 08-10 10:15: 00 08-10 13:00 :00 No 1000mL at 999 mL/hr, 1,000 mL, IV Infusion, ONCE, 1 dose, On 08/10/22 at 0415, STAT [facility] LORazepam (ATIVAN) injection 0.5 mg 08-10 09:15: 00 08-10 09:19 :00 No .5mg 0.5 mg, Slow IV Push, ONCE, 1 dose, On 08/10/22 at 0315, STAT [facility] LORazepam (ATIVAN) injection 1 mg 08-10 08:00: 00 08-10 07:05 :00 No 1mg 1 mg, Slow IV Push, ONCE NOW, 1 dose, On 08/10/22 at 0200, STAT [facility] thiamine (VITAMIN B1) injection 100 mg 08-10 06:45: 00 08-10 06:52 :00 No 100mg 100 mg, Intravenou s, ONCE, 1 dose, [facility]22 [facility] 1 mg 08-10 05:15: 00 08-10 05:22 :00 No 1mg 1 mg, Slow IV Push, ONCE, 1 dose, On 08/09/22 at 2315, STAT [facility] ketorolac (TORADOL) injection 15 mg 2021-06 016 [...] Last dose on Thu12/31/21 at 1330, Routine [facility] multivitami n tablet 12-31 00:00: 00 Yes [id number] 1{tbl} Take 1 tablet by mouth in the morning. [facility] thiamine 100 mg tablet 12-31 00:00: 00 Yes [id number] 100mg Take 1 tablet by mouth in the morning. [facility] aspirin 81 mg chewable tablet 12-31 00:00: 00 Yes [id number] 81mg Take 1 tablet by mouth in the morning. [facility] foLIC acid 1 mg tablet 12-31 00:00: 00 01-31 04:59 :00 No [id number] 1mg Take 1 tablet by mouth in the morning for 30 days. [facility] metFORMIN 500 mg tablet 12-30 00:00: 00 Yes [id number] 500mg Take 1 tablet by mouth in the morning and 1 tablet in the evening. Take with meals. [facility] aspirin chewable tablet 81 mg 12-29 14:00: 00 Yes 81mg 81 mg, Oral, DAILY, First dose on Thu12/29/21 at 0900, Until Discontinu ed, Routine [facility] sulfur hexafluorid e microsphr (LUMASON) injection 5 mL 12-29 13:45: 00 12-29 13:45 :00 No [id number] 5mL 5 mL, Intravenou s, ONCE, 1 dose, On Thu12/29/21 at 0845, Routine
retail team member approving Restricted medication : STEFANIE GORMAN [facility] enoxaparin (LOVENOX) injection 40 mg 12-29 13:00: 00 Yes 40mg 40 mg, Subcutaneo us, Q24H, First dose on 12/29/21 at 0800, Until Discontinu ed, Routine [facility] Sliding Scale Insulin - Lispro (HumaLOG) + Fsbg Testing 12-29 13:00: 00 Yes Subcutaneo us, TID MEALS+HS, First dose on 12/29/21 at 0800, Until Discontinu ed, Routine [facility] diazePAM (VALIUM) injection 10 mg 12-29 05:30: 00 12-29 04:40 :00 No 10mg 10 mg, Intravenou s, ONCE, 1 dose, On 12/29/21 at 0030, Routine [facility] diazePAM (VALIUM) injection 10 mg 12-29 04:15: 00 12-29 03:17 :00 No 10mg 10 mg, Intravenou s, ONCE, 1 dose, On 12/28/21 at 2315, Routine [facility] diazePAM (VALIUM) injection 5 mg 12-29 03:45: 01 Yes 5mg 5 mg, Intravenou s, QIDPRN, Starting on 12/28/21 at 2245, Until Discontinu ed, Routine, Seizures, Agitation [facility] foLIC acid (FOLATE) tablet 1 mg 12-29 03:45: 00 Yes 1mg 1 mg, Oral, DAILY, First dose on 12/28/21 at 2245, Until Discontinu ed, Routine [facility] thiamine (VITAMIN B1) tablet 100 mg 12-29 03:45: 00 Yes 100mg 100 mg, Oral, DAILY, First dose (after last modificati on) on 12/28/21 at 2245, Until Discontinu ed, Routine [facility] glucagon (GLUCAGEN DIAGNOSTIC KIT) injection 1 mg 12-29 03:42: 19 Yes 1mg 1 mg, Intramuscu lar, PRN, Starting on 12/28/21 at 2242, Until Discontinu ed, JACIEL, Blood Glucose < or = 70 mg/dL and patient is unable to swallow or has mental changes. [facility] dextrose 10% (D10W) bolus infusion 250 [...] blood glucose is < 80 mg/dL, repeat.
[facility] LORazepam (ATIVAN) injection 1 mg 12-29 03:30: 00 12-29 02:32 :00 No 1mg 1 mg, Intravenou s, ONCE, 1 dose, On 12/28/21 at 2230, Routine
Is the medication being used for status epilepticu s? No [facility] oxazepam (SERAX) capsule 15 mg 12-29 00:28: 20 Yes 15mg 15 mg, Oral, Q4HPRN, Starting on 12/28/21 at 1928, Until Discontinu ed, Routine, Only while awake for DBP equal to or greater than 100, HR equal to or greater than 100. [facility] ondansetron (ZOFRAN (PF)) injection 4 mg 12-29 00:23: 47 Yes 4mg 4 mg, Slow IV Push, Q6HPRN, Starting on 12/28/21 at 1923, Until Discontinu ed, Routine, Nausea and Vomiting (N/V) [facility] acetaminoph en (TYLENOL) tablet 650 mg 12-29 00:23: 37 Yes 650mg 650 mg, Oral, Q6HPRN, Starting on 12/28/21 at 1923, Until Discontinu ed, Routine, Pain (scale 1-3), Temp > 38.5 C [facility] chlordiazeP OXIDE (LIBRIUM) capsule 25 mg 12-28 23:15: 00 12-28 23:24 :00 No 25mg 25 mg, Oral, ONCE, 1 dose, On 12/28/21 at 1815, JACIEL [facility] NaCl 0.9% (NS) bolus infusion 2,000 mL 12-28 22:45: 00 12-28 23:18 :00 No 2000mL at 999 mL/hr, 2,000 mL, IV Infusion, ONCE, 1 dose, On 12/28/21 at 1745, JACIEL [facility] LORazepam (ATIVAN) injection 1 mg 12-28 20:45: 00 12-28 20:49 :00 No 1mg 1 mg, Slow IV Push, ONCE, 1 dose, On 12/28/21 at 1545, STAT
Is the medication being used for status epilepticu s? No [facility] acetaminoph en (TYLENOL) 500 mg tablet 10-06 00:00: 00 Yes 500mg Take 1 Tab by mouth every 6 (six) hours as needed for Pain. [facility] Vital Signs Vital Name Observation Time Observation Value Comments S ource Systolic blood pressure 2024-03-31 02:27:00 100 mm[Hg] [facility] Diastolic blood pressure 2024-03-31 02:27:00 77 mm[Hg] [facility] Heart rate 2024-03-31 02:27:00 76 /min [facility] Body temperature 2024-03-31 02:27:00 36.67 Theresa [facility] Respiratory rate 2024-03-31 02:27:00 14 /min [facility] Oxygen saturation in Arterial blood by Pulse oximetry 2024-03-31 02:27:00 99 /min [facility] Body height 2024-03-30 22:08:00 160 cm [facility] Body weight 2024-03-30 22:08:00 58.968 kg [facility] BMI 2024-03-30 22:08:00 23.03 kg/m2 [facility] Systolic blood pressure 2023-12-13 05:16:00 125 mm[Hg] [facility] Diastolic blood pressure 2023-12-13 05:16:00 90 mm[Hg] [facility] Heart rate 2023-12-13 05:16:00 77 /min [facility] Body temperature 2023-12-13 05:16:00 36.06 Theresa [facility] Respiratory rate 2023-12-13 05:16:00 16 /min [facility] Oxygen saturation in Arterial blood by Pulse oximetry 2023-12-13 05:16:00 98 /min [facility] Body height 2023-12-13 01:35:00 157.5 cm [facility] Body weight 2023-12-13 01:35:00 65.772 kg [facility] BMI 2023-12-13 01:35:00 26.52 kg/m2 [facility] Systolic blood pressure 2023-11-05 21:00:00 106 mm[Hg] [facility] Diastolic blood pressure 2023-11-05 21:00:00 70 mm[Hg] [facility] Heart rate 2023-11-05 21:00:00 74 /min [facility] Body temperature 2023-11-05 21:00:00 36.5 Theresa [facility] Respiratory rate 2023-11-05 21:00:00 21 /min [facility] Oxygen saturation in Arterial blood by Pulse oximetry 2023-11-05 21:00:00 98 /min [facility] Body height 2023-11-05 19:59:00 160 cm [facility] Body weight 2023-11-05 19:59:00 63.504 kg [facility] BMI 2023-11-05 19:59:00 24.80 kg/m2 [facility] Systolic blood pressure 2022-11-11 20:31:31 116 mm[Hg] [facility] Diastolic blood pressure 2022-11-11 20:31:31 77 mm[Hg] [facility] Heart rate 2022-11-11 20:31:31 84 /min [facility] Respiratory rate 2022-11-11 20:31:31 12 /min [facility] Oxygen saturation in Arterial blood by Pulse oximetry 2022-11-11 20:31:31 90 /min [facility] Body temperature 2022-11-11 18:49:00 37.11 Theresa [facility] Body height 2022-11-11 18:49:00 160 cm [facility] Body weight 2022-11-11 18:49:00 68.04 kg [facility] BMI 2022-11-11 18:49:00 26.57 kg/m2 [facility] Body temperature 2022-08-11 14:00:00 36.5 Theresa [facility] Systolic blood pressure 2022-08-11 10:00:00 116 mm[Hg] [facility] Diastolic blood pressure 2022-08-11 10:00:00 71 mm[Hg] [facility] Heart rate 2022-08-11 10:00:00 70 /min [facility] Respiratory rate 2022-08-11 10:00:00 16 /min [facility] Body weight 2022-08-11 10:00:00 65.499 kg [facility] BMI 2022-08-11 10:00:00 25.58 kg/m2 [facility] Oxygen saturation in Arterial blood by Pulse oximetry 2022-08-11 10:00:00 100 /min [facility] Body height 2022-08-10 22:12:00 160 cm [facility] Systolic blood pressure 2022-04-06 16:00:00 125 mm[Hg] [facility] Diastolic blood pressure 2022-04-06 16:00:00 75 mm[Hg] [facility] Heart rate 2022-04-06 16:00:00 87 /min [facility] Respiratory rate 2022-04-06 16:00:00 22 /min [facility] Oxygen saturation in Arterial blood by Pulse oximetry 2022-04-06 16:00:00 98 /min [facility] Body temperature 2022-04-06 14:41:00 37 Theresa Starr [...] Heart rate 2022-01-20 02:27:00 79 /min [facility] Respiratory rate 2022-01-20 02:27:00 12 /min [facility] Oxygen saturation in Arterial blood by Pulse oximetry 2022-01-20 02:27:00 98 /min [facility] Body temperature 2022-01-19 22:19:00 36.44 Theresa [facility] Body weight 2022-01-19 22:19:00 60.328 kg [facility] BMI 2022-01-19 22:19:00 23.56 kg/m2 [facility] Systolic blood pressure 2021-12-30 20:52:00 134 mm[Hg] [facility] Diastolic blood pressure 2021-12-30 20:52:00 76 mm[Hg] [facility] Heart rate 2021-12-30 20:52:00 67 [facility] Body temperature 2021-12-30 20:26:00 36.67 Theresa [facility] Oxygen saturation in Arterial blood by Pulse oximetry 2021-12-30 20:26:00 99 /min [facility] Respiratory rate 2021-12-30 16:21:00 18 /min [facility] Body weight 2021-12-30 08:27:00 60.464 kg [facility] BMI 2021-12-30 08:27:00 23.61 kg/m2 [facility] Body height 2021-12-29 01:29:00 160 cm [facility] Procedures Procedure Date / Time Performed Performing Clinician Source URINALYSIS 2024-03-31 01:10:00 Reina Diego [facility] CT HEAD WO CONTRAST 2024-03-30 22:37:17 Reina Arthur [facility] INFLUENZA A/B RSV COVID NAAT 2024-03-30 22:30:00 Reina Diego [facility] TROPONIN I 2024-03-30 22:19:00 Reina Diego [facility] COMP. METABOLIC PANEL ([id number]) 2024-03-30 22:19:00 Reina Diego [facility] ETHANOL 2024-03-30 22:19:00 Reina Diego [facility] CBC WITH DIFF 2024-03-30 22:19:00 Reina Diego [facility] N-TERMINAL PRO-BNP 2024-03-30 22:19:00 [facility] 2023-12-13 03:32:00 Rafael Byrd [facility] XR CHEST 1 VW 2023-12-13 02:18:14 Rafael Byrd [facility] LIPASE 2023-12-13 02:07:00 Rafael Byrd [facility] TROPONIN I 2023-12-13 02:07:00 Rafael Byrd [facility] COMP. METABOLIC PANEL ([id number]) 2023-12-13 02:07:00 Rafael Byrd [facility] CBC WITH DIFF 2023-12-13 02:07:00 Rafael Byrd [facility] XR CHEST 1 VW 2023-11-05 20:09:00 Sulaiman Hawkins [facility] LIPASE 2023-11-05 20:01:[address] [facility] MAGNESIUM 2023-11-05 20:01:00 Singer [facility] TROPONIN I 2023-11-05 20:01:00 Singer [facility] COMP. METABOLIC PANEL ([id number]) 2023-11-05 20:01:00 Singer [facility] CBC WITH DIFF 2023-11-05 20:01:00 Singer [facility] N-TERMINAL PRO-BNP 2023-11-05 20:01:00 Singer [facility] MAGNESIUM 2022-11-11 19:05:00 Jessica [facility] BASIC METABOLIC PANEL (NA, K, CL, CO2, GLUCOSE, BUN, CREATININE, CA) 2022-11-11 19:05:00 Jessica [facility] ETHANOL 2022-11-11 19:05:00 Jessica [facility] CBC WITH DIFF 2022-11-11 19:05:00 Jessica [facility] POCT GLUCOSE (AUTOMATED) 2022-08-11 13:36:00 Arvind Prado [facility] PHOSPHORUS 2022-08-11 10:35:00 Jessica Prado [facility] MAGNESIUM 2022-08-11 10:35:00 Eve [facility] AMMONIA, PLASMA 2022-08-11 10:35:00 Jessica Prado [facility] COMP. METABOLIC PANEL ([id number]) 2022-08-11 10:35:00 Jessica Prado [facility] CBC WITH DIFF 2022-08-11 10:35:[address] [facility] POCT GLUCOSE (AUTOMATED) 2022-08-11 02:15:00 Arvind Prado [facility] POCT GLUCOSE (AUTOMATED) 2022-08-10 23:10:00 Arvind Prado [facility] POCT GLUCOSE (AUTOMATED) 2022-08-10 18:20:00 Arvind Prado [facility] POCT GLUCOSE (AUTOMATED) 2022-08-10 14:11:00 Arvind Prado [facility] POCT GLUCOSE (AUTOMATED) 2022-08-10 10:59:00 Gopal Driscoll [facility] COVID-19 (ID NOW RAPID TESTING) 2022-08-10 07:17:00 Rayray Driscoll [facility] LAB ONLY COVID INTERPRETATION 2022-08-10 07:17:00 Rayray Driscoll [facility] HB ECG ROUTINE & RHYTHM STRIP 2022-08-10 06:03:48 Rayray Driscoll [facility] URINALYSIS 2022-08-10 05:46:00 [facility] URINE DRUG (IMMUNOASSAY) - COMPREHENSIVE DRUG SCREEN W/O REFLEX 2022-08-10 05:45[facility] 2022-08-10 05:16:00 [facility]22-08-10 05:16:00 [facility] MAGNESIUM 2022-08-10 05:16:[address] [facility] TROPONIN I 2022-08-10 05:16:00 [facility] COMP. METABOLIC PANEL ([id number]) 2022-08-10 05:16:00 Rayray Driscoll [facility] ETHANOL 2022-08-10 05:16:00 [facility] CBC WITH DIFF 2022-08-10 05:16:00 Rayray Driscoll [facility] N-TERMINAL PRO-BNP 2022-08-10 05:16:00 Rayray Driscoll [facility] CRITICAL CARE 2022-08-10 04:52:00 Rayray Driscoll [facility] XR CHEST 1 VW 2022-04-06 14:51:50 [facility] 2022-04-06 14:42:00 Diya Chowdhury [facility] TROPONIN I 2022-04-06 14:42:00 Diya Chowdhury Un [facility] COMP. METABOLIC PANEL ([id number]) 2022-04-06 14:42:00 Diya Chowdhury [facility] CBC WITH DIFF 2022-04-06 14:42:00 Diya Chowdhury U [facility] PROTHROMBIN TIME / INR 2022-04-06 14:42:00 Diya Chowdhury [facility] ACTIVATED PARTIAL THRMPLAS NELDA 2022-04-06 14:42:00 Diya Chowdhury [facility] LACTIC ACID WHOLE BLOOD 2022-01-20 00:22:00 Leticia Baldwin [facility] URINE DRUG (IMMUNOASSAY) - COMPREHENSIVE DRUG SCREEN 2022-01-19 23:10:00 Leticia Baldwin [facility] URINALYSIS 2022-01-19 23:10:00 Leticia Baldwin [facility] TROPONIN I 2022-01-19 23:00:00 Leticia Baldwin [facility] COMP. METABOLIC PANEL ([id number]) 2022-01-19 23:00:00 Leticia Baldwin [facility] LITHIUM 2022-01-19 23:00:00 Leticia Baldwin [facility] ETHANOL 2022-01-19 23:00:00 Leticia Baldwin [facility] CBC WITH DIFF 2022-01-19 23:00:00 Leticia Baldwin [facility] COVID-19 (ID NOW RAPID TESTING) 2022-01-19 23:00:00 Leticia [facility] [facility] HEAD WO CONTRAST 2022-01-19 22:49:00 Leticia Baldwin [facility] XR CHEST 1 VW 2022-01-19 22:41:00 Leticia Baldwin [facility] POCT GLUCOSE (AUTOMATED) 2022-01-19 22:25:00 Leticia Baldwin [facility] POCT GLUCOSE (AUTOMATED) 2021-12-30 21:55:00 Arvind Prado [facility] POCT GLUCOSE (AUTOMATED) 2021-12-30 16:21:00 Arvind Prado [facility] POCT GLUCOSE (AUTOMATED) 2021-12-30 12:30:00 Arvind Prado [facility] HEPATIC FUNCTION PANEL (61100) (ALB,T.PRO,BILI T,BU/BC,ALT,AST,ALK PHOS) 2021-12-30 09:28:00 Mair[facility] TR[facility]IN I 2021-12-29 09:42:00 Eve [facility] TROPONIN I 2021-12-29 04:55:00 Jessica Prado [facility] CT HEAD WO CONTRAST 2021-12-28 21:18:22 Poppy Renteria [facility] AMMONIA, PLASMA 2021-12-28 21:00:00 Pia Renteria U [facility] COVID-19 (ID NOW RAPID TESTING) 2021-12-28 20:42:00 Pia Renteria [facility] LAB ONLY COVID INTERPRETATION 2021-12-28 20:42:00 Pia Renteria [facility] URINE DRUG (IMMUNOASSAY) - COMPREHENSIVE DRUG SCREEN W/O REFLEX 2021-12-28 20:42:00 Pia Renteria [facility] URINALYSIS 2021-12-28 20:40:00 Pia Renteria [facility] N-TERMINAL PRO-BNP 2021-12-28 20:40:00 Corina Renteria [facility] TROPONIN I 2021-12-28 20:40:00 Pia Renteria [facility] THYROID STIMULATING HORMONE 2021-12-28 20:40:00 Jessica Prado [facility] COMP. METABOLIC PANEL (01609) 2021-12-28 20:40:00 Pia Renteria [facility] LIPID PANEL (10911)(TOTAL CHOLESTEROL, TRIGLYCERIDES, HDL) 2021-12-28 20:40:00 Demetrius Langford [facility] ETHANOL 2021-12-28 20:40:00 Demetrius Langford [facility] CBC WITH DIFF 2021-12-28 20:40:00 Pia Renteria [facility] GLYCOSYLATED HEMOGLOBIN (A1C) 2021-12-28 20:40:00 Jessica Prado [facility] PROTHROMBIN TIME / INR 2021-12-28 20:40:00 Lesly Renteria [facility] XR CHEST 1 VW 2021-12-28 20:16:00 Pia Renteria [facility] HB ECG ROUTINE & RHYTHM STRIP 2021-12-28 20:04:59 Pia Renteria [facility] Encounters Start Date/Time End Date/Time Encounter Type Admission Type Attending [facility] Care Facility Care Department Encounter ID Source 2021-09-17 16:45:00 Inpatient [facility] [id number] [facility] 2020-06-06 16:07:00 Inpatient [facility] [id number] [facility] 2020-06-06 06:20:00 Inpatient [facility] [id number] [facility] 2020-06-05 19:35:00 Inpatient [facility] [id number] [facility] 2020-05-23 19:53:00 Inpatient [facility] [id number] [facility] 2020-05-23 19:53:00 Inpatient [facility] [id number] [facility] 2024-03-30 17:04:00 2024-03-30 22:00:00 Emergency Reina Diego [facility] [id number] 350.1.13.10 4.2.7.2.686 [id number] [facility] 2023-12-12 20:44:00 2023-12-13 00:22:00 Emergency Rafael Byrd [facility] 1.2.840.114 350.1.13.10 4.2.7.2.686 [id number] [facility] 2023-11-05 14:54:00 2023-11-05 16:27:00 Emergency Sulaiman Hawkins [facility] [id number] 350.1.13.10 4.2.7.2.686 [id number] [facility] 2022-11-11 13:50:00 2022-11-11 16:07:00 Emergency [address]ARDO [facility] [id number] [facility] 2022-11-11 13:50:00 2022-11-11 16:07:00 Emergency Hemant Klein [facility] 1.2.840.114 350.1.13.10 4.2.7.2.686 [id number] [facility] 2022-10-14 20:59:00 2022-10-14 20:59:00 Emergency [facility] [id number] [facility] 2022-10-14 20:59:00 2022-10-14 20:59:00 Emergency Emergency AfPan brothers [facility] [id number] [facility] 2022-08-09 22:59:00 2022-08-11 13:02:00 Outpatient JESSICA GAINES [facility] [id number] [facility] 2022-08-09 22:59:00 2022-08-11 13:02:00 Emergency Rayray Driscoll [facility]elani Edionwe[facility] 1.2840.114 350.1.13.10 4.2.7.2.686 [id number] [facility] 2022-04-06 09:38:00 2022-04-06 11:42:00 Emergency X DIYA CHOWDHURY [facility] ERT [id number] [facility] 2022-04-06 09:38:00 2022-04-06 11:42:00 Emergency Diya Chowdhury [facility] 1.2840.114 350.1.13.10 4.2.7.2.686 [id number] [facility] 2022-03-07 12:38:00 2022-03-07 12:38:00 Emergency [facility] [id number] [place] [address] 2022-03-07 12:38:00 2022-03-07 12:38:00 Emergency Emergency Fidel Cuellar [facility] [id number] [facility] 2022-01-19 17:18:00 2022-01-19 22:00:00 Emergency X DIRK YARBROUGH [facility] ERT [id number] [facility] 2022-01-19 17:18:00 2022-01-19 22:00:00 Emergency Leticia Baldwin Julio C [facility] 1.2840.114 350.1.13.10 4.2.7.2.686 [id number] [facility] 2021-12-31 00:00:00 2021-12-31 00:00:00 Transition of Care Faye Portillo 1.2.840.114 350.1.13.10 4.2.7.2.686 [id number] [facility] 2021-12-28 14:53:00 2021-12-30 17:42:00 Inpatient X JESSICA PRADO [facility] [id number] [facility] 2021-12-28 14:53:00 2021-12-30 17:42:00 Hospital Encounter Pia Renteria Jelani [facility] 1.2.840.114 350.1.13.10 4.2.7.2.686 [id number] [facility] 2021-09-17 16:47:00 2021-09-17 16:47:00 Emergency [facility] [id number] [facility] 2020-06-06 16:07:00 2020-06-06 16:07:00 Emergency [facility] [id number] [facility] Results Test Description Test Time [...] 1 cm frontal scalp epidermal inclusion [facility] 23:00:35 ALCOHOL<10mg/dL03/30/2024 6:00 PM [facility] Xawjqprk60-547 Toxic>100 Depression of ASSURANCE SENIOR MANAGER>400 Fatalities ReportedUnMethodist McKinney HospitalN-Terminal Ycv-Zek4453-16-09 23:00:04* Test Item Value Reference Range Interpretation Comme nts NT-proBNP (test code = 15094-6) 93 pg/mL <=125 Lab Interpretation (test cod e = 98135-2) [facility] (60357)2024-03-30 22:51:22* Test Item Value Reference Range Interpretation Comme nts NA (test code = 1543935007) 133 mmol/L 135-145 L K (test code = 1916098788) 4.2 mmol/L 3.5-5.0 CL (test code = 6315524471) 105 mmol/L 98-108 CO2 TOTAL (test code = 2621555518) 20 mmol/L 23-31 L AGAP (test code = 1680390047) 8 2-16 BUN (test code = 8741174450) 19 mg/dL 7-23 GLUCOSE (test code = 0797551500) 153 mg/dL 70-110 H CREATININE (test code = 2160-0) 1.08 mg/dL 0.60-1.25 TOTAL BILI (test code = 6362364127) 0.3 mg/dL 0.1-1.1 CALCIUM (test code = 3569085106) 10.1 mg/dL 8.6-10.6 T PROTEIN (test code = 0849605741) 6.5 g/dL 6.3-8.2 ALBUMIN (test code = 8548408607) 3.9 g/dL 3.5-5.0 ALK PHOS (test code = 8586681552) 93 U/L 34-122 ALTv (test code = 1742-6) 14 U/L 5-50 AST(SGOT) (test code = 2886663830) 17 U/L 13-40 eGFR (test code = 36428-3) 81.5 mL/min/1.73m2 CKD-EPI eGFR (2020). Assuming creatinine has been stable day-to-day for at least three months, the eGFR indicates Category G2 (60 - 89 mL/min/1.73 m2) Lab Interpretation (test code = 15634-4) Abnormal [facility] with [id number] 22:39:22* Test Item Value Reference Range Interpretation [...] 33.1 g/dL 31.2-35.0 RDW-SD (test code = 70357-9) 45.6 fL 38.5-51.6 RDW-CV (test code = 788-0) 13.3 % 12.1-15.4 PLT (test code = 777-3) 289 150-328 MPV (test code = 29940-1) 8.7 fL 9.8-13.0 L NRBC/100 WBC (test code = 8860813421) 0.0 0.0-10.0 NRBC x10^3 (test code = 6780314838) See_Comment [Automated messa ge] The system which generated this result transmitted reference range: 10*3/?L. The reference range was not used to interpret this result as normal/abnormal. GRAN MAT (NEUT) % (test code = 770-8) 72.9 % IMM GRAN % (test code = 8485024085) 0.40 % LYMPH % (test code = 736-9) 15.2 % MONO % (test code = 5905-5) 8.9 % EOS % (test code = 713-8) 1.8 % BASO % (test code = 706-2) 0.8 % GRAN MAT x10^3(ANC) (test code = 5898839176) 6.02 10*3/uL 1.99-6.95 IMM GRAN x10^3 (test code = 8107098973) 0.03 10*3/uL 0.00-0.06 LYMPH x10^3 (test code = 731-0) 1.26 10*3/uL 1.09-3.23 MONO x10^3 (test code = 742-7) 0.74 10*3/uL 0.36-1.02 EOS x10^3 (test code = 711-2) 0.15 10*3/uL 0.06-0.53 BASO x10^3 (test code = 704-7) 0.07 10*3/uL 0.01-0.09 Lab Interpretation (test code = 99618-5) Abnormal [facility] [id number] 04:40:11* Test Item Value Reference Range Interpretation Comme nts TROPONIN I (test code = 7289028591) 0.002 ng/mL <=0.034 JUAN ALBERTO (test code [...] of biotin. Lab Interpretation (test code = 91367-8) Normal [facility] [id number] 02:57:27* Test Item Value Reference Range Interpretation Comme nts TROPONIN I (test code = 9499928150) 0.003 ng/mL <=0.034 JUAN ALBERTO (test code [...] of biotin. Lab Interpretation (test code = 81461-5) Normal [facility]. METABOLIC PANEL (03452)2023-12-13 02:46:25* Test Item Value Reference Range Interpretation Comme nts NA (test code = 7929661142) 144 mmol/L 135-145 K (test code = 0890724324) 3.9 mmol/L 3.5-5.0 CL (test code = 2857685918) 110 mmol/L 98-108 H CO2 TOTAL (test code = 5134555523) 20 mmol/L 23-31 L AGAP (test code = 4623325257) 14 2-16 BUN (test code = 0299610132) 13 mg/dL 7-23 GLUCOSE (test code = 5591751411) 163 mg/dL 70-110 H CREATININE (test code = 2160-0) 0.63 mg/dL 0.60-1.25 TOTAL BILI (test code = 8780626799) 0.3 mg/dL 0.1-1.1 CALCIUM (test code = 3503930337) 9.0 mg/dL 8.6-10.6 T PROTEIN (test code = 1475766086) 7.2 g/dL 6.3-8.2 ALBUMIN (test code = 4446094191) 4.1 g/dL 3.5-5.0 ALK PHOS (test code = 3784369442) 129 U/L 34-122 H ALTv (test code = 1742-6) 15 U/L 5-50 AST(SGOT) (test code = 6236414234) 34 U/L 13-40 eGFR (test code = 93888-2) 113.7 mL/min/1.73m2 CKD-EPI eGFR (2020). Assuming creatinine has been stable day-to-day for at least three months, the eGFR indicates Category G1 (>= 90 mL/min/1.73 m2) Lab Interpretation (test code = 31591-2) [facility] [id number] 02:45:25* Test Item Value Reference Range Interpretation Comme nts LIPASE (test code = 6005538779) 47 U/L 0-220 Lab Interpretation (test cod e = 62608-8) [facility] 1 [id number] 02:40:35History: chest pain . Exam: XR CHEST 1 VW Date: 12/12/2023 9:15 PM Ordering provider: RAFAEL BYRD Technical quality: Adequate Comparison: 11/05/2023. Findings: Frontal view of the chest is obtained. The cardiac silhouette is normal in size. No evidence of infiltrate,pleural effusion, CHF, or pneumothorax.[facility] WITH [id number] 02:33:48* Test Item Value Reference Range Interpretation [...] 33.2 g/dL 31.2-35.0 RDW-SD (test code = 90627-7) 54.4 fL 38.5-51.6 H RDW-CV (test code = 788-0) 15.9 % 12.1-15.4 H PLT (test code = 777-3) 318 150-328 MPV (test code = 72009-2) 8.5 fL 9.8-13.0 L NRBC/100 WBC (test code = 3267774867) 0.0 0.0-10.0 NRBC x10^3 (test code = 9098396935) See_Comment [Automated messa ge] The system which generated this result transmitted reference range: 10*3/?L. The reference range was not used to interpret this result as normal/abnormal. GRAN MAT (NEUT) % (test code = 770-8) 50.1 % IMM GRAN % (test code = 3311601750) 0.40 % LYMPH % (test code = 736-9) 37.6 % MONO % (test code = 5905-5) 6.8 % EOS % (test code = 713-8) 4.1 % BASO % (test code = 706-2) 1.0 % GRAN MAT x10^3(ANC) (test code = 2970599842) 3.66 10*3/uL 1.99-6.95 IMM GRAN x10^3 (test code = 0515609804) 0.03 10*3/uL 0.00-0.06 LYMPH x10^3 (test code = 731-0) 2.75 10*3/uL 1.09-3.23 MONO x10^3 (test code = 742-7) 0.50 10*3/uL 0.36-1.02 EOS x10^3 (test code = 711-2) 0.30 10*3/uL 0.06-0.53 BASO x10^3 (test code = 704-7) 0.07 10*3/uL 0.01-0.09 Lab Interpretation (test code = 25949-5) Abnormal [facility] [id number] 20:15:30HISTORY: Chest pain. TECHNIQUE: Portable AP view of the chest is obtained. Comparison is beingmade with 04/06/2022 study. FINDINGS: No acute pneumonia. No pneumothorax or pleural effusion orpulmonarycongestion detected. Cardiac size is within normal limits.Prominent osteophytes are seen along right left vertebral margins at middleand lower thoracic spines. CONCLUSIONS: No signs of acute cardiopul monary disease.[facility]OL20[facility] 19:45:56 ALCOHOL<10mg/dL11/11/2022 2:45 PM [facility]<10 Tvfuhwyj63-112 Toxic>100 Depression of ASSURANCE SENIOR MANAGER>400 Fatalities ReportedUnMethodist McKinney HospitalBASIC METABOLIC PANEL (NA, K, CL, CO2, GLUCOSE, BUN, CREATININE, CA)2022-11-11 19:41:47* Test Item Value Reference Range Interpretation Comme nts NA (test code = 9826784833) 138 mmol/L 135-145 K (test code = 7334856233) 4.8 mmol/L 3.5-5.0 CL (test code = 6225141347) 103 mmol/L 98-108 CO2 TOTAL (test code = 7752307732) 26 mmol/L 23-31 AGAP (test code = 7019878659) 9 2-16 BUN (test code = 0199025815) 17 mg/dL 7-23 GLUCOSE (test code = 1909757370) 219 mg/dL 70-110 H CREATININE (test code = 9441616890) 0.72 mg/dL 0.60-1.25 CALCIUM (test code = 8274418133) 10.0 mg/dL 8.6-10.6 eGFR (test code = 4603971807) 114.6 mL/min/1.73m2 JUAN ALBERTO (test code = [...] imaging tests). Lab Interpretation (test code = 46500-6) Abnormal [facility]2023-[facility]-23 19:41:47* Test Item Value Reference Range Interpretation Comme nts MAGNESIUM (test code = 4965214226) 1.8 mg/dL 1.7-2.4 Lab Interpretation (test cod e = 75624-3) Normal [facility] WITH [id number] 19:25:26* Test Item Value Reference Range Interpretation Comme nts WBC (test code = 6690-2) 6.82 See_Comment [Automated [employer]] The system which generated this result transmitted [...] 33.9 g/dL 31.2-35.0 RDW-SD (test code = 10321-9) 46.0 fL 38.5-51.6 RDW-CV (test code = 788-0) 13.5 % 12.1-15.4 PLT (test code = 777-3) 237 See_Comment [Automated messa ge] The system which generated this result transmitted reference range: 150 - 328 10*3/?L. The reference range was not used to interpret this result as normal/abnormal. MPV (test code = 88242-2) 8.9 fL 9.8-13.0 L NRBC/100 WBC (test code = 5394440403) 0.0 See_Comment [Automated [employer] ssage] The system which generated this result transmitted reference range: 0.0 - 10.0 /100 WBCs. The reference range was not used to interpret this result as normal/abnormal. NRBC x10^3 (test code = 6307503275) See_Comment [Automated messa ge] The system which generated this result transmitted reference range: 10*3/?L. The reference range was not used to interpret this result as normal/abnormal. GRAN MAT (NEUT) % (test code = 770-8) 71.2 % IMM GRAN % (test code = 1143675657) 0.30 % LYMPH % (test code = 736-9) 18.2 % MONO % (test code = 5905-5) 8.4 % EOS % (test code = 713-8) 1.0 % BASO % (test code = 706-2) 0.9 % GRAN MAT x10^3(ANC) (test code = 2815996248) 4.86 10*3/uL 1.99-6.95 IMM GRAN x10^3 (test code = 4758431494) 0.00-0.06 LYMPH x10^3 (test code = 731-0) 1.24 10*3/uL 1.09-3.23 MONO x10^3 (test code = 742-7) 0.57 10*3/uL 0.36-1.02 EOS x10^3 (test code = 711-2) 0.07 10*3/uL 0.06-0.53 BASO x10^3 (test code = 704-7) 0.06 10*3/uL 0.01-0.09 Lab Interpretation (test code = 00711-7) Abnormal [facility], Urinalysis Rflx Cult/Yqngj5213-47-71 22:20:00* Test Item Value Reference Range Interpretation Comme nts Color,Urine (test code = UCOL) Yellow Yellow Clarity,Urine (test code = UCLAR) Clear Clear Ph, Urine (test code = UPH) 7.0 5.0-9.0 N Specific [place],Urine (test code = USG) 1.020 1.005-1.030 N [...] code = ULEU) Negative mg/dL Negative Drug Screen,Lsfrz8514-30-43 22:20:00* Test Item Value Reference Range Interpretation [...] UPROP) Negative Negative Complete Blood Count Auto [id number] 21:21:00* Test Item Value Reference Range Interpretation [...] code = NRBCP) 0 % Comprehensive Metabolic [id number] 21:21:00* Test Item Value Reference Range Interpretation [...] a race coefficient. Additional information canbe found at:[email or web address]_ [email or web address]_flyer 5.pdf ([email or web address]) [Automated message] The system [...] = ALP) 134 U/L 46-116 H Ethanol Wvedu2267-48-07 21:21:00* Test Item Value Reference Range Interpretation Comme nts Ethanol (test code = ETOH) < 3 mg/dL The pharmacologi yudy response to blood alcohol levels mayvary from individual to individual. The fatal concentrationhas been reported to be >400mg/dL. POCT GLUCOSE (AUTOMATED)2022-08-11 13:40:35* Test Item Value Reference Range Interpretation Comme [facility] (test code = 2083575433) 121 mg/dL 70-110 H Lab Interpretation (test cod e = 00249-7) Abnormal [facility] GLUCOSE (AUTOMATED)2022-08-11 02:18:58* Test Item Value Reference Range Interpretation Comme [facility] POCT GLU (test code = 4921965608) 183 mg/dL 70-110 H Lab Interpretation (test cod e = 29611-3) Abnormal [facility] GLUCOSE (AUTOMATED)2022-08-10 23:16:11* Test Item Value Reference Range Interpretation Comme [facility] POCT GLU (test code = 8438027234) 176 mg/dL 70-110 H Lab Interpretation (test cod e = 89881-7) Abnormal [facility] GLUCOSE (AUTOMATED)2022-08-10 18:22:51* Test Item Value Reference Range Interpretation Comme nts POCT GLU (test code = 3477384975) 165 mg/dL 70-110 H Lab Interpretation (test cod e = 23941-0) Abnormal [facility] GLUCOSE (AUTOMATED)2022-08-10 14:18:05* Test Item Value Reference Range Interpretation Comme nts POCT GLU (test code = 1856123233) 138 mg/dL 70-110 H Lab Interpretation (test cod e = 00665-5) Abnormal [facility] GLUCOSE (AUTOMATED)2022-08-10 11:01:21* Test Item Value Reference Range Interpretation Comme nts POCT GLU (test code = 2810379568) 143 mg/dL 70-110 H Lab Interpretation (test cod e = 44847-6) Abnormal [facility] [id number] 06:51:18* Test Item Value Reference Range Interpretation Comme nts TROPONIN I (test code = 6633743248) 0.008 ng/mL <=0.034 JUAN ALBERTO (test code [...] of biotin. Lab Interpretation (test code = 23565-6) Normal [facility] HospitalN-TERMINAL WUZ-[id number] 06:47:37* Test Item Value Reference Range Interpretation Comme nts NT-proBNP (test code = 0166151381) 37 pg/mL <=125 JUAN ALBERTO (test code = JUAN ALBERTO) Biotin has been reported to cause a negative bias, interpret results relative to patient's use of biotin. Lab Interpretation (test code = 50699-6) Normal [facility]ETHANOL2023-02-19 06:25:52 ALCOHOL<10mg/dL08/10/2022 12:25 [facility]10 Spoqldbm74-895 Toxic>100 Depression of ASSURANCE SENIOR MANAGER>400 Fatalities [facility]ortedNortheast [facility] Hospital. METABOLIC PANEL (86688)2022-08-10 06:19:15* Test Item Value Reference Range Interpretation Comme nts NA (test code = 6765673659) 135 mmol/L 135-145 K (test code = 2507399564) 4.3 mmol/L 3.5-5.0 CL (test code = 8963924044) 98 mmol/L 98-108 CO2 TOTAL (test code = 7183223355) 30 mmol/L 23-31 AGAP (test code = 4937391711) 7 2-16 BUN (test code = 4740908972) 11 mg/dL 7-23 GLUCOSE (test code = 6547123571) 153 mg/dL 70-110 H CREATININE (test code = 4787562548) 0.77 mg/dL 0.60-1.25 TOTAL BILI (test code = 2012182691) 0.9 mg/dL 0.1-1.1 CALCIUM (test code = 5539357163) 10.0 mg/dL 8.6-10.6 T PROTEIN (test code = 2331877743) 7.7 g/dL 6.3-8.2 ALBUMIN (test code = 2358403240) 4.6 g/dL 3.5-5.0 ALK PHOS (test code = 4247384161) 92 U/L 34-122 ALTv (test code = 1742-6) 35 U/L 5-50 AST(SGOT) (test code = 5609844596) 42 U/L 13-40 H eGFR (test code = 5879208495) 106.1 mL/min/1.73m2 JUAN ALBERTO (test code = [...] imaging tests). Lab Interpretation (test code = 04996-6) Abnormal [facility]2023-02-19 06:19:15* Test Item Value Reference Range Interpretation Comme nts MAGNESIUM (test code = 1166464913) 2.2 mg/dL 1.7-2.4 Lab Interpretation (test cod e = 08588-4) Normal [facility] 06:18:55* Test Item Value Reference Range Interpretation Comme nts LIPASE (test code = 8146759515) 18 U/L 0-220 Lab Interpretation (test cod e = 08140-1) Normal [facility] HospitalCREATINE [id number] 06:18:55* Test Item Value Reference Range Interpretation Comme nts CK (test code = 0534957033) 174 U/L 33-194 Lab Interpretation (test cod e = 21812-5) Normal [facility] WITH [id number] 06:02:35* Test Item Value Reference Range Interpretation Comme nts WBC (test code = 6690-2) 7.50 See_Comment [Automated [employer]] The system which generated this result transmitted reference range: 4.20 - 10.70 10*3/?L. The reference range was not used to interpret this result as normal/abnormal. RBC (test code = 789-8) 4.80 See_Comment [Automated [employer] ge] The system which generated this result [...] 32.4 g/dL 31.2-35.0 RDW-SD (test code = 43333-3) 50.2 fL 38.5-51.6 RDW-CV (test code = 788-0) 14.3 % 12.1-15.4 PLT (test code = 777-3) 241 See_Comment [Automated [employer]] The system which generated this result transmitted reference range: 150 - 328 10*3/?L. The reference range was not used to interpret this result as normal/abnormal. MPV (test code = 85978-7) 8.6 fL 9.8-13.0 L NRBC/100 WBC (test code = 6848879573) 0.0 See_Comment [Automated [employer] ssage] The system which generated this result transmitted reference range: 0.0 - 10.0 /100 WBCs. The reference range was not used to interpret this result as normal/abnormal. NRBC x10^3 (test code = 5137485835) See_Comment [Automated [employer]] The system which generated this result transmitted reference range: 10*3/?L. The reference range was not used to interpret this result as normal/abnormal. GRAN MAT (NEUT) % (test code = 770-8) 63.9 % IMM GRAN % (test code = 1112105196) 0.50 % LYMPH % (test code = 736-9) 17.6 % MONO % (test code = 5905-5) 16.5 % EOS % (test code = 713-8) 0.7 % BASO % (test code = 706-2) 0.8 % GRAN MAT x10^3(ANC) (test code = 1540269774) 4.79 10*3/uL 1.99-6.95 IMM GRAN x10^3 (test code = [id number]) 0.04 10*3/uL 0.00-0.06 LYMPH x10^3 (test code = 731-0) 1.32 10*3/uL 1.09-3.23 MONO x10^3 (test code = 742-7) 1.24 10*3/uL 0.36-1.02 H EOS x10^3 (test code = 711-2) 0.05 10*3/uL 0.06-0.53 L BASO x10^3 (test code = 704-7) 0.06 10*3/uL 0.01-0.09 Lab Interpretation (test code = 57944-5) [id number]* Test Item Value Reference Range Interpretation Comments TROPONIN I (test code = 8261837040) 0.007 ng/mL See_Comment [Automated message] The system [...] of biotin. Lab Interpretation (test code = 88917-4) [facility]:08:29* Test [...] 30 seconds. Lab Interpretation (test code = 23491-1) [facility] [id number] 15:06:28* Test Item Value Reference Range Interpretation Comme nts PROTIME PATIENT (test code = 5964-2) See_Comment [Automated [employer]] The system which generated this result transmitted reference range: 12.0 - 14.7 Seconds. The reference range was not used to interpret this result as normal/abnormal. INR (test code = 6301-6) Normal INR <1.1; Warfarin Therapeutic range 2.0 to 3.0 or 2.5 to 3.5, depending upon the indications. Lab Interpretation (test code = 32723-0) [facility] (88113)2022-04-06 15:03:31* Test Item Value Reference Range Interpretation Comme nts NA (test code = 2018181008) 136 mmol/L 135-145 K (test code = 2535810330) 5.0 mmol/L 3.5-5 CL (test code = 8218767423) 104 mmol/L 98-108 CO2 TOTAL (test code = 3782689591) 21 mmol/L 23-31 L AGAP (test code = 0388448603) 2-16 BUN (test code = 1398102015) 11 mg/dL 7-23 GLUCOSE (test code = 6855532140) 162 mg/dL 70-110 H CREATININE (test code = 1979183017) 0.52 mg/dL 0.6-1.25 L TOTAL BILI (test code = 7945879398) 1.0 mg/dL 0.1-1.1 CALCIUM (test code = 8795080105) 9.3 mg/dL 8.6-10.6 T PROTEIN (test code = 8671324915) 7.4 g/dL 6.3-8.2 ALBUMIN (test code = 1884666497) 4.4 g/dL 3.5-5 ALK PHOS (test code = 5075714825) 134 U/L 34-122 H ALTv (test code = 1742-6) 17 U/L 5-50 AST(SGOT) (test code = 8336186633) 38 U/L 13-40 eGFR (test code = 8010813083) mL/min/1.73m2 JUAN ALBERTO (test code = JUAN [...] imaging tests). Lab Interpretation (test code = 67142-9) [facility]normal [facility]LIP[facility], [id number] 15:03:31* Test Item Value Reference Range Interpretation Comme nts LIPASE (test code = 2183657180) 29 U/L 0-220 Lab Interpretation (test cod e = 76761-2) [facility] WITH [id number] 14:51:49* Test Item Value Reference Range Interpretation Comme nts WBC (test code = 6690-2) See_Comment [Automated [employer]] The system which generated this result transmitted [...] 34.0 g/dL 31.2-35 RDW-SD (test code = 72150-9) 45.9 fL 38.5-51.6 RDW-CV (test code = 788-0) 13.3 % 12.1-15.4 PLT (test code = 777-3) See_Comment [Automated messa ge] The system which generated this result transmitted reference range: 150 - 328 10*3/?L. The reference range was not used to interpret this result as normal/abnormal. MPV (test code = 65590-0) 8.4 fL 9.8-13 L NRBC/100 WBC (test code = 6593382586) See_Comment [Automated [employer] ssage] The system which generated this result transmitted reference range: 0.0 - 10.0 /100 WBCs. The reference range was not used to interpret this result as normal/abnormal. NRBC x10^3 (test code = 3977784196) See_Comment [Automated messa ge] The system which generated this result transmitted reference range: 10*3/?L. The reference range was not used to interpret this result as normal/abnormal. GRAN MAT (NEUT) % (test code = 770-8) 63.0 % IMM GRAN % (test code = 5593739488) 0.50 % LYMPH % (test code = 736-9) 25.2 % MONO % (test code = 5905-5) 9.8 % EOS % (test code = 713-8) 0.3 % BASO % (test code = 706-2) 1.2 % GRAN MAT x10^3(ANC) (test code = 8719501894) 3.73 10*3/uL 1.99-6.95 IMM GRAN x10^3 (test code = 8961206546) 0.03 10*3/uL 0-0.06 LYMPH x10^3 (test code = 731-0) 1.49 10*3/uL 1.09-3.23 MONO x10^3 (test code = 742-7) 0.58 10*3/uL 0.36-1.02 EOS x10^3 (test code = 711-2) 0.06-0.53 L BASO x10^3 (test code = 704-7) 0.07 10*3/uL 0.01-0.09 Lab Interpretation (test code = 28385-9) [facility]normal [facility], Urinalysis Rflx Cult/Cvlmk1011-23-60 13:53:00* Test Item Value Reference Range Interpretation Comme nts Color,Urine (test code = UCOL) Yellow Yellow Clarity,Urine (test code = UCLAR) Cloudy Clear A Ph, Urine (test code = UPH) 7.5 5.0-9.0 N Specific [place],Urine (test code = USG) 1.025 1.005-1.030 N [...] = ULEU) Negative mg/dL Negative UF REFLEXDrug Screen,Phids5093-64-13 13:53:00* Test Item Value Reference Range Interpretation [...] UPROP) Negative Negative Complete Blood Count Auto Ccvp4307-37-57 12:58:00* Test Item Value Reference Range Interpretation [...] = NRBCP) 0 % Coronavirus PCR, COVID19 Pgfwd5652-11-91 12:58:00* Test Item Value Reference Range Interpretation Comme nts Coronavirus PCR, COVID19 Rapid (test code = SARSCOV2) Coronavirus PCR, COVID19 Rapid (test code = JSBLPFS41.1) Reference Range: Negative SARS-CoV-2 PCR Result: (test code = SARS-CoV-2 PCR Result:) Negative by RT-PCR COVID-19 Status: AsymptomaticComprehensive Metabolic Brkcs0345-13-68 12:58:00* Test Item Value Reference Range Interpretation [...] = ALP) 144 U/L 46-116 H Ethanol Yfnqi3235-45-03 12:58:00* Test Item Value Reference Range Interpretation Comme nts Ethanol (test code = ETOH) < 3 mg/dL The pharmacologi yudy response to blood alcohol levels mayvary from individual to individual. The fatal concentrationhas been reported to be >400mg/dL. JXCTZZI8348-03-28 01:47:56* Test Item Value Reference Range Interpretation Comme nts [place] (test code = 7572297187) 0.7 mmol/L 0.6-1.2 JUAN ALBERTO (test code = JUAN ALBERTO) Toxic Range: ? Greater than 1.2 mmol/L Lab Interpretation (test code = 58860-0) Normal [facility] HospitalTROPONIN [id number] 00:26:53* Test Item Value Reference Range Interpretation Comments TROPONIN I (test code = 4630050811) 0.002 ng/mL See_Comment [Automated message] The system [...] of biotin. 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 METABOLIC PANEL (14924)2022-01-20 00:16:16* Test Item Value Reference Range Interpretation Comme nts NA (test code = 8754415340) 137 mmol/L 135-145 K (test code = 8413409844) 4.5 mmol/L 3.5-5 CL (test code = 3303086308) 103 mmol/L 98-108 CO2 TOTAL (test code = 1673310632) 26 mmol/L 23-31 AGAP (test code = 7380651917) 2-16 BUN (test code = 6776715094) 10 mg/dL 7-23 GLUCOSE (test code = 1914182384) 121 mg/dL 70-110 H CREATININE (test code = 7738156661) 0.65 mg/dL 0.6-1.25 TOTAL BILI (test code = 9834303064) 0.8 mg/dL 0.1-1.1 CALCIUM (test code = 3485451200) 11.4 mg/dL 8.6-10.6 H T PROTEIN (test code = 7782930810) 7.2 g/dL 6.3-8.2 ALBUMIN (test code = 7011714349) 4.6 g/dL 3.5-5 ALK PHOS (test code = 9759533214) 112 U/L 34-122 ALTv (test code = 1742-6) 19 U/L 5-50 AST(SGOT) (test code = 1503413553) 26 U/L 13-40 eGFR (test code = 2496886987) mL/min/1.73m2 JUAN ALBERTO (test code = JUAN [...] imaging tests). Lab Interpretation (test code = 52531-1) Abnormal [facility] WITH QYVY5312-57-53 23:43:54* Test Item Value Reference Range Interpretation Comme nts WBC (test code = 6690-2) See_Comment [Automated [employer]] The system which generated this result transmitted reference range: 4.20 - 10.70 10*3/?L. The reference range was not used to interpret this result as normal/abnormal. RBC (test code = 789-8) See_Comment [Automated [employer]] The system which generated this result transmitted [...] 34.4 g/dL 31.2-35 RDW-SD (test code = 41970-5) 44.0 fL 38.5-51.6 RDW-CV (test code = 788-0) 12.6 % 12.1-15.4 PLT (test code = 777-3) See_Comment [Automated messa ge] The system which generated this result transmitted reference range: 150 - 328 10*3/?L. The reference range was not used to interpret this result as normal/abnormal. MPV (test code = 35808-2) 9.1 fL 9.8-13 L NRBC/100 WBC (test code = 9580857660) See_Comment [Automated [employer] ssage] The system which generated this result transmitted reference range: 0.0 - 10.0 /100 WBCs. The reference range was not used to interpret this result as normal/abnormal. NRBC x10^3 (test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
[2024-04-09] MEDS ORDERED: METOPROLOL TAR 25 MG TAB ONE (08:29)
[2024-04-09] MEDS ORDERED: ASPIRIN 81 MG CHEWABLE TABLET ONE (08:29)
[2024-04-09] MEDS ORDERED: NA CHLORIDE 0.9% 1,000 ML ONE (08:30)
[2024-04-09] MEDS ORDERED: FAMOTIDINE 20 MG/2 ML VIAL IV ONE (08:30)
[2024-04-09] MEDS ORDERED: MULTIVITAMINS 10 ML VIAL (INJ) IV ONE (08:30)
[2024-04-09 08:42] LABS: Absolute Basophils 0.1 K/uL (0-0.5); Absolute Eosinophils 0.1 K/uL (0-0.5); Absolute Lymphocytes (CBC) 1.2 K/uL (0.7-4.9); Absolute Monocytes 0.3 K/uL (0.1-1.3); Absolute Neutrophil 2.9 K/uL (1.8-8.0); Basophils % 1.2 % (0-1.3); Eosinophils % 1.4 % (0-4.4); Hematocrit 40.9 % (39.6-49.0); Hemoglobin 13.4 g/dL (13.6-17.9); Lymphocytes % 26.8 % (15.3-44.8); MCHC 32.7 g/dL (32.0-36.0); MCV 91.7 fL (80-100); MPV 5.9 fL (7.6-11.3); Monocytes % 7.1 % (3.3-12.3); Neutrophils % 63.5 % (41.7-73.7); Nucleated Red Blood Cells % 0.1 % (0-0); Platelets 366 thou/uL (152-406); RBC Red Blood Cell Count 4.46 M/uL (4.33-5.43); Red Cell Distribution Width 15.9 % (12.1-15.2)
[2024-04-09 08:56] LABS: PT Prothrombin Time 10.3 SECONDS (9.4-12.5); PTT, Activated Partial Thromb 35.5 SECONDS (24.3-36.9); Protime INR 0.92
[2024-04-09 09:02] LABS: Specific Gravity 1.022 (1.005-1.030); Sqamous Epithelial None Seen /HPF (None Seen); Urine Bacteria None Seen /HPF (<20); Urine Bilirubin NEGATIVE (Negative); Urine Blood Negative (Negative); Urine Clarity Clear (Clear); Urine Color Light-Yellow (Yellow); Urine Culture Reflex Order NOT NEEDED; Urine Glucose 4+ (Over) (Negative); Urine Ketones NEGATIVE (Negative); Urine Microscopic Reflex YN ORDER UMIC; Urine Mucus Slight /HPF (None Seen); Urine Nitrite NEGATIVE (Negative); Urine Protein TRACE (Negative); Urine RBC <5 /HPF (None Seen); Urine Urobilinogen Normal (Normal); Urine WBC None Seen /HPF (<5); Urine pH 6.5 (5.0-7.0)
[2024-04-09 09:07] LABS: ALT/SGPT 15 U/L (16-61); AST/SGOT 19 U/L (15-37); Albumin 3.4 g/dL (3.4-5.0); Albumin/Globulin Ratio 0.9 (1.1-1.8); Alkaline Phosphatase 90 U/L (45-117); Anion Gap 9.7 mEq/L (5.0-15.0); BUN Blood Urea Nitrogen 7 mg/dL (7-18); Bicarbonate 28 mEq/L (21-32); Globulin 3.8 g/dL (2.3-3.5); Glomerular Filtration Rate 120 ml/min (=/>90); Glucose Level 200 mg/dL (74-106); Lipase 15 U/L (13-75); Potassium 3.7 mEq/L (3.5-5.1); Protein, Total 7.2 g/dL (6.4-8.2); Sodium Level 143 mEq/L (136-145); Troponin High Sensitivity 7.8 pg/mL (<58.9)
[2024-04-09 09:09] LABS: Bilirubin Direct < 0.2 mg/dL (0-0.2); Bilirubin Total < 0.2 mg/dL (0.2-1.0)
[2024-04-09 09:10] LABS: Barbiturates NEGATIVE (NEGATIVE); Benzodiazepines NEGATIVE (NEGATIVE); Cocaine NEGATIVE (NEGATIVE); METHAMPHETAM POSITIVE (NEGATIVE); Methadone NEGATIVE (NEGATIVE); Opiates NEGATIVE (NEGATIVE); Phencyclidine NEGATIVE (NEGATIVE); THC Cannibis NEGATIVE (NEGATIVE)
--- NOTE | 2024-04-09 10:02 | EDPHYS ---
Physician Documentation [facility] Name: Walt Velazquez Age: 53 yrs Sex: Male : 1970 Arrival Date: 04/09/2024 Time: 08:07 Bed 20 Private MD: ED Physician Deandre Mckeon HPI: 04/09 08:34 This 53 yrs old Male presents to ER via EMS with complaints of Chest Pain. [facility] 08:34 The patient or guardian reports chest pain that is located primarily in the anterior bridgette chest wall, left. Onset: 1 day(s) ago. The pain does not radiate. Associated signs and symptoms: The patient has no apparent associated signs or symptoms. The chest pain is described as aching. Modifying factors: The symptoms are alleviated by nothing. the symptoms are aggravated by nothing. Severity of pain: At its worst the pain was mild in the emergency department the pain is unchanged. The patient has experienced similar episodes in the past, multiple times. Historical: - Allergies: 08:10 Trazodone; rs5 - PMHx: 08:10 etoh abuse (Seizure); Hypertensive disorder; Seizure; rs5 - PSHx: 08:10 None; rs5 - Immunization history:: Adult Immunizations up to date. - Infectious Disease History:: Denies. - Social history:: Smoking status: Patient denies any tobacco usage or history of. - Family history:: not pertinent. ROS: 08:34 Constitutional: Negative for fever, chills, and weight loss, Eyes: Negative for injury, bridgette pain, redness, and discharge, ENT: Negative for injury, pain, and discharge, Neck: Negative for injury, pain, and swelling, Respiratory: Negative for shortness of breath, cough, wheezing, and pleuritic chest pain, Abdomen/GI: Negative for abdominal pain, nausea, vomiting, diarrhea, and constipation, Back: Negative for injury and pain, : Negative for injury, bleeding, discharge, and swelling, MS/Extremity: Negative for injury and deformity, Skin: Negative for injury, rash, and discoloration, Neuro: Negative for headache, weakness, numbness, tingling, and seizure, Psych: Negative for depression, anxiety, suicide ideation, homicidal ideation, and hallucinations, Allergy/Immunology: Negative for hives, rash, and allergies, Endocrine: Negative for neck swelling, polydipsia, polyuria, polyphagia, and marked weight changes, Hematologic/Lymphatic: Negative for swollen nodes, abnormal bleeding, and unusual bruising, 08:34 Cardiovascular: Positive for chest pain, Exam: 08:34 Constitutional: This is a well developed, well nourished patient who is awake, alert, bridgette and in no acute distress. Head/Face: Normocephalic, atraumatic. Eyes: Pupils equal round and reactive to light, extra-ocular motions intact. Lids and lashes normal. Conjunctiva and sclera are non-icteric and not injected. Cornea within normal limits. Periorbital areas with no swelling, redness, or edema. ENT: Nares patent. No nasal discharge, no septal abnormalities noted. Tympanic membranes are normal and external auditory canals are clear. Oropharynx with no redness, swelling, or masses, exudates, or evidence of obstruction, uvula midline. Mucous membranes moist. Neck: Trachea midline, no thyromegaly or masses palpated, and no cervical lymphadenopathy. Supple, full range of motion without nuchal rigidity, or vertebral point tenderness. No Meningismus. Chest/axilla: Normal chest wall appearance and motion. Nontender with no deformity. No lesions are appreciated. Cardiovascular: Regular rate and rhythm with a normal S1 and S2. No gallops, murmurs, or rubs. Normal PMI, no JVD. No pulse deficits. Respiratory: Lungs have equal breath sounds bilaterally, clear to auscultation and percussion. No rales, rhonchi or wheezes noted. No increased work of breathing, no retractions or nasal flaring. Abdomen/GI: Soft, non-tender, with normal bowel sounds. No distension or tympany. No guarding or rebound. No evidence of tenderness throughout. Back: No spinal tenderness. No costovertebral tenderness. Full range of motion. Male : Normal genitalia with no discharge or lesions. Skin: Warm, dry with normal turgor. Normal color with no rashes, no lesions, and no evidence of cellulitis. MS/ Extremity: Pulses equal, no cyanosis. Neurovascular intact. Full, normal range of motion. Neuro: Awake and alert, GCS 15, oriented to person, place, time, and situation. Cranial nerves II-XII grossly intact. Motor strength 5/5 in all extremities. Sensory grossly intact. Cerebellar exam normal. Normal gait. Psych: Awake, alert, with orientation to person, place and time. Behavior, mood, and affect are within normal limits. 08:34 ECG was reviewed by the Attending Physician. Vital Signs: 08:09 BP 134 / 91; Pulse 80; Resp 17; Temp 98(O); Pulse Ox 99% on R/A; rs5 09:05 BP 132 / 88; Pulse 77; Resp 17; Pulse Ox 99% on R/A; rs5 10:17 BP 145 / 86; Pulse 84; Resp 16; Pulse Ox 97% on R/A; iw MDM: 08:13 Medical Screening Exam initiated bridgette 08:36 Differential diagnosis: abnormal EKG, acute myocardial infarction, acute pericarditis, bridgette anxiety, costochondritis, esophagitis, gastritis, pancreatitis, pericarditis, pleurisy, stable angina, thoracic aortic disection, unstable angina. HEART Score: History: Slightly Suspicious (0), ECG: Non specific repolarization disturbance / LBTB / PM (1), Age: > 45 and < 65 years (1), Risk Factors: 1 or 2 risk factors (1), [Hypertension] [+ Family HX] Troponin: < or = 1 x Normal Limit (0). The patient was given aspirin in the Emergency Department. ALEJANDRINA Risk Score: 1 - Recent [<24hrs] Severe Angina, TOTAL SCORE = 1. Data reviewed: vital signs, nurses notes, EMS record, lab test result(s), EKG, radiologic studies, plain films. Consideration of Admission/Observation Escalation of care including admission/observation considered. I considered the following discharge prescriptions or medication management in the emergency department Medications were administered in the Emergency Department. See MAR. Independent interpretation of the following test(s) in the Emergency Department EKG: See my EKG interpretation above. Test considered but Not performed: Ultrasound no 2 d echo. 04/09 08:14 Order name: Acetaminophen; Complete Time: 09:25 bridgette 04/09 08:14 Order name: Basic Metabolic Panel; Complete Time: 09:25 bridgette 04/09 08:14 Order name: CBC with Diff; Complete Time: 09:25 bridgette 04/09 08:14 Order name: ETOH Level; Complete Time: 09:25 [facility] 04/09 08:14 Order name: Hepatic Function; Complete Time: 09:25 bridgette 04/09 08:14 Order name: PT-INR; Complete Time: 09:25 bridgette 04/09 08:14 Order name: Ptt, Activated; Complete Time: 09:25 bridgette 04/09 08:14 Order name: Salicylate; Complete Time: 09:25 bridgette 04/09 08:14 Order name: Urinalysis w/ reflexes; Complete Time: 09:25 bridgette 04/09 08:14 Order name: Urine Drug Screen; Complete Time: 09:25 bridgette 04/09 08:14 Order name: Troponin High Sensitivity; Complete Time: 09:25 bridgette 04/09 08:47 Order name: Lipase; Complete Time: 09:25 EDMS 04/09 08:14 Order name: EKG - Nurse/Tech; Complete Time: 08:20 bridgette 04/09 08:14 Order name: IV Saline Lock; Complete Time: 08:42 [facility] 04/09 08:14 Order name: Labs collected and sent; Complete Time: 08:42 [facility] EC:34 Rate is 106 beats/min. Rhythm is regular. QRS [place] is Normal. DE interval is normal. bridgette QRS interval is normal. QT interval is normal. No Q waves. T waves are Normal. Clinical impression: Sinus tachycardia. Interpreted by me. Reviewed by me. Administered Medications: 08:41 Drug: Banana Bag - (Multivitamin IV 1 amp, NS 0.9% IV 1000 ml, Thiamine IV 100 mg, rs5 foLIC Acid IVPB 1 mg) IV at 500 ml/hr once Route: IV; Rate: 500 ml/hr; Site: right antecubital; 10:20 Follow up: IV Status: Completed infusion iw 08:41 Drug: Thiamine IV 100 mg IV at bolus once Route: IV; Rate: bolus; Site: right rs5 antecubital; 08:50 Follow up: IV Status: Completed infusion iw 08:41 Drug: Aspirin PO Chewable Tablet 81 mg PO once Route: PO; rs5 08:42 Drug: Famotidine IVP 20 mg IVP once; dilute with 10 mL 0.9% NaCl; give over 2 minutes rs5 Route: IVP; Site: right antecubital; 08:42 Drug: Metoprolol PO 25 mg PO once Route: PO; rs5 Disposition Summary: 04/09/24 10:01 Discharge Ordered Notes: Location: Home bridgette Problem: an ongoing problem bridgette Symptoms: have improved bridgette Condition: Stable bridgette Diagnosis - Alcohol dependence bridgette - Alcohol abuse with other alcohol-induced disorders bridgette - Chest pain, unspecified bridgette - Dehydration bridgette - Alcohol abuse with intoxication bridgette - Abuse of other non-psychoactive substances bridgette - Adverse effect of amphetamines bridgette Followup: bridgette - With: Private Physician - When: 2 - 3 days - Reason: Recheck today's complaints, Continuance of care, Re-evaluation by your physician Followup: bridgette - With: Cristhian Hernandez MD - When: 1 - 2 days - Reason: Recheck today's complaints, Re-evaluation by your physician Discharge Instructions: - Discharge Summary Sheet bridgette - Nonspecific Chest Pain, Adult bridgette - Dehydration, Adult bridgette - Nonspecific Chest Pain, Adult, [id number] bridgette - Alcohol Abuse and Nutrition bridgette - Methamphetamines Use Disorder bridgette - Dehydration, Adult, [id number] bridgette - Aspirin and Your Heart bridgette - Rehydration, Adult bridgette - Alcohol Abuse and Dependence Information, Adult [facility] Forms: - Medication Reconciliation Form bridgette - Antibiotic Education bridgette - Prescription Opioid Use bridgette - Patient Portal Instructions [facility] - Leadership Thank You Letter [facility] Prescriptions: - Toprol XL 25 mg Oral Tablet, Extended Release 24 hr - take 1 tablet ORAL route once daily; 20 tablet; Refills: 0, Product Selection bridgette Permitted - Pepcid 20 mg Oral tablet - take 1 tablet ORAL route every 12 hours for 21 days; 42 tablet; Refills: 0, [facility] Product Selection Permitted Signatures: Dispatcher [employer] EDDeandre Castrejon MD MD cha Sotelo, Ricky, RN RN rs5 Marita Hernandez RN iw Corrections: (The following items were deleted from the chart) 08:15 08:15 ACETAMINOPHEN+C.LAB.BRZ ordered. EDMS EDMS 08:15 08:15 BASIC METABOLIC PANEL+C.LAB.BRZ ordered. EDMS EDMS 08:15 08:15 CBC+H.LAB.BRZ ordered. EDMS EDMS 08:15 08:15 ETHANOL+C.LAB.BRZ ordered. EDMS EDMS 08:15 08:15 HEPATIC FUNCTION+C.LAB.BRZ ordered. EDMS EDMS 08:15 08:15 PROTIME (+INR)+COAG.LAB.BRZ ordered. EDMS EDMS 08:15 08:15 PTT, ACTIVATED+COAG.LAB.BRZ ordered. EDMS EDMS 08:15 08:15 SALICYLATE+C.LAB.BRZ ordered. EDMS EDMS 08:15 08:15 Urinalysis+U.LAB.BRZ ordered. EDMS EDMS 08:15 08:15 URINE DRUG SCREEN+UC.LAB.BRZ ordered. EDMS EDMS 08:15 08:15 Troponin High Sensitivity+C.LAB.BRZ ordered. EDMS EDMS 08:20 08:14 Suicide Screening ([place]) ordered. [facility] iw 08:47 08:38 LIPASE+C.LAB.BRZ ordered. EDMS EDMS
--- NOTE | 2024-04-09 10:02 | ER ---
Nurse's Notes [facility] Name: Walt Velazquez Age: 53 yrs Sex: Male : 1970 Arrival Date: 04/09/2024 Time: 08:07 Bed 20 Private MD: Diagnosis: Alcohol dependence;Alcohol abuse with other alcohol-induced disorders;Chest pain, unspecified;Dehydration;Alcohol abuse with intoxication;Abuse of other non-psychoactive substances;Adverse effect of amphetamines Presentation: 04/09 08:09 Chief complaint: EMS states: Chest pain that started 30 min prior to arrival, rating rs5 6/10, described as aching, does not radiate. Coronavirus screen: At this time, the client does not indicate any symptoms associated with coronavirus-19. Ebola Screen: No symptoms or risks identified at this time. Initial Sepsis Screen: Does the patient meet any 2 criteria? No. Patient's initial sepsis screen is negative. Does the patient have a suspected source of infection? No. Patient's initial sepsis screen is negative. Risk Assessment: Do you want to hurt yourself or someone else? Patient reports no desire to harm self or others. Onset of symptoms was April 09, 2024. 08:09 Method Of Arrival: EMS: [facility] rs5 08:09 Acuity: LATASHA 3 rs5 Historical: - Allergies: 08:10 Trazodone; rs5 - PMHx: 08:10 etoh abuse (Seizure); Hypertensive disorder; Seizure; rs5 - PSHx: 08:10 None; rs5 - Immunization history:: Adult Immunizations up to date. - Infectious Disease History:: Denies. - Social history:: Smoking status: Patient denies any tobacco usage or history of. - Family history:: not pertinent. Screenin:11 [facility] ED Fall Risk Assessment (Adult) History of falling in the last 3 months, rs5 including since admission No falls in past 3 months (0 pts) Confusion or Disorientation No (0 pts) Intoxicated or Sedated No (0 pts) Impaired Gait No (0 pts) Mobility Assist Device Used No (0 pt) Altered Elimination No (0 pt) Score/Fall Risk Level 0 - 2 = Low Risk Oriented to surroundings, Maintained a safe environment. Abuse screen: Denies threats or abuse. Nutritional screening: No deficits noted. Tuberculosis screening: No symptoms or risk factors identified. Assessment: 08:10 General: Appears in no apparent distress. comfortable, Behavior is calm, cooperative. rs5 Pain: Complains of pain in chest Pain does not radiate. Pain currently is 6 out of 10 on a pain scale. Quality of pain is described as aching, Pain began 30 min ago. Neuro: Level of Consciousness is awake, alert, obeys commands, Oriented to person, place, time, situation. Cardiovascular: Patient's skin is warm and dry. Respiratory: Airway is patent Respiratory effort is even, unlabored, Respiratory pattern is regular, symmetrical. GI: Abdomen is round non-distended, Abd is soft and non tender X 4 quads. : No signs and/or symptoms were reported regarding the genitourinary system. EENT: No signs and/or symptoms were reported regarding the EENT system. Derm: Skin is intact, Skin is dry, Skin is normal, Skin temperature is warm. Musculoskeletal: Range of motion: intact in all extremities. 09:15 Reassessment: Patient and/or family updated on plan of care and expected duration. Pain rs5 level reassessed. Patient is alert, oriented x 3, equal unlabored respirations, skin warm/dry/pink. 10:17 Reassessment: Patient appears in no apparent distress at this time. Patient and/or iw family updated on plan of care and expected duration. Pain level reassessed. Patient is alert, oriented x 3, equal unlabored respirations, skin warm/dry/pink. Vital Signs: 08:09 BP 134 / 91; Pulse 80; Resp 17; Temp 98(O); Pulse Ox 99% on R/A; rs5 09:05 BP 132 / 88; Pulse 77; Resp 17; Pulse Ox 99% on R/A; rs5 10:17 BP 145 / 86; Pulse 84; Resp 16; Pulse Ox 97% on R/A; iw ED Course: 08:09 Patient arrived in ED. rs5 08:10 Triage completed. rs5 08:11 Vipin Owens, RN is Primary Nurse. rs5 08:11 Patient has correct armband on for positive identification. Placed in gown. Bed in low rs5 position. Call light in reach. Side rails up X2. Client placed on continuous cardiac and pulse oximetry monitoring. NIBP monitoring applied. ekg monitor tech on. Pulse ox on. 08:11 No provider procedures requiring assistance completed. Patient maintains SpO2 rs5 saturation greater than 95% on room air. 08:13 Deandre Mckeon MD is Attending Physician. bridgette 08:30 Arm band placed on. iw 10:01 Cristhian Hernandez MD is Referral Physician. bridgette 10:17 IV discontinued, intact, bleeding controlled, No redness/swelling at site. Pressure iw dressing applied. Administered Medications: 08:41 Drug: Banana Bag - (Multivitamin IV 1 amp, NS 0.9% IV 1000 ml, Thiamine IV 100 mg, rs5 foLIC Acid IVPB 1 mg) IV at 500 ml/hr once Route: IV; Rate: 500 ml/hr; Site: right antecubital; 10:20 Follow up: IV Status: Completed infusion iw 08:41 Drug: Thiamine IV 100 mg IV at bolus once Route: IV; Rate: bolus; Site: right rs5 antecubital; 08:50 Follow up: IV Status: Completed infusion iw 08:41 Drug: Aspirin PO Chewable Tablet 81 mg PO once Route: PO; rs5 08:42 Drug: Famotidine IVP 20 mg IVP once; dilute with 10 mL 0.9% NaCl; give over 2 minutes rs5 Route: IVP; Site: right antecubital; 08:42 Drug: Metoprolol PO 25 mg PO once Route: PO; rs5 Medication: 09:05 VIS not applicable for this client. rs5 Outcome: 10:01 Discharge ordered by . bridgette 10:17 Discharged to Law Enforcement iw 10:17 Condition: good 10:17 Discharge instructions given to patient, police, Instructed on discharge instructions, Demonstrated understanding of instructions, follow-up care, medications, Prescriptions given X 1, 10:19 Patient left the ED. iw Signatures: Deandre Mckeon MD MD cha Williams, Irene, RN RN iw Vipin Owens RN RN rs5
[2024-04-09 14:29] VITALS: TEMP 98
[2024-04-09 14:38] VITALS: BP 145/86; O2SAT 97
--- NOTE | 2024-04-12 13:01 | EKG ---
Test Date: 2024-04-09 Test Time: 08:16:53 Contact Printer Dry Film: JASON MEASUREMENT RESULTS: Intervals: Rate: 106 CA: 166 QRSD: 68 QT: 328 QTc: 435 [place]: P: 63 CA: 166 QRS: 56 T: 53 INTERPRETIVE STATEMENTS: Sinus tachycardia Otherwise normal ECG Compared to ECG 02/17/2024 12:48:28 Sinus rhythm no longer present Electronically Signed On 04-12-24 12:52:34 CDT by Moi Edmond
== END 2024-04-09 10:19 | disposition home or self-care (01) ==
LOC: ER 08:07
DX: F10.280 Alcohol dependence with alcohol-induced anxiety disorder (principal); E86.0 Dehydration; F10.229 Alcohol dependence with intoxication, unspecified; F55.8 Abuse of other non-psychoactive substances; T43.625A Adverse effect of amphetamines, initial encounter
CPT/HCPCS: 36415; 80048; 80076; 80143; 80179; 80307; 81001; 82077; 83690; 84484; 85025; 85610; 85730; 93005; 96365; 96366; 96375; 99285; J7030

== ENCOUNTER 2024-06-01 02:31 | Emergency (ER) | payer SELFPAY ==
--- OUTSIDE RECORDS SUMMARY | 2024-06-01 02:40 | XMS REPORT | Continuity of Care Document ---
Author Name Unknown Address [address] [facility] [address] [place] [address] [facility] Address [address] [facility] [address] [place] [address] Care Team Providers Care Director Of Outpatient Services Name Role Phone Pcp-None Primary Care Physician Unavailab Reina Murray MD Attending Clinician + Rafael Byrd MD Attending Clinician [phone] Sulaiman Hawkins DO Attending Clinician +[phone] HEMANT KLEIN Attending Clinician Unavailable Hemant Klein MD Attending Clinician [phone] Pan Pinto Attending Clinician Unavailab JESSICA Gallardo Attending Clinician Unavailable Rayray Driscoll MD Attending Clinician +[phone] Jessica Prado MD Attending Clinician +[phone] Oswald Murphy MD Attending Clinician [phone] DIYA CHOWDHURY Attending Clinician Unavailab Diya Mackey DO Attending Clinician [phone] Fidel Cuellar Attending Clinician Unavailable DIRK YARBROUGH Attending Clinician Unavailable Leticia Rowland Attending Clinician [phone] Dirk Yarbrough MD Attending Clinician [phone] Faye Portillo LVN Attending Clinician [phone] Pia Reddy Attending Clinician [phone] Vinnie Navarro Attending Clinician Unavailable OSWALD MURPHY Admitting Clinician Unavailable Oswald Murphy MD Admitting Clinician [phone] DIYA CHOWDHURY Admitting Clinician UnavailLeticia Gatyan Admitting Clinician Unavailable JESSICA PRADO Admitting Clinician Unavailable Jessica Prado MD Admitting Clinician [phone] Payers Payer Name Policy Type Policy Number Effective Date Expirati on Date Source Problems Condition Name Condition Details Condition Category Status Onset Date Resolution Date Last Treatment Date Treating Clinician Comments Source Alcohol withdrawal syndrome with complicati on Alcohol withdrawal syndrome with complicati on Disease Active 08-10 00:00: 00 [facility] Type 2 diabetes mellitus with other specified complicati on Type 2 diabetes mellitus with other specified complicati on Disease Active 12-29 00:00: 00 [facility] Dyslipidem ia Dyslipidem ia Disease Active 12-29 00:00: 00 [facility] Chest pain, unspecifie d type Chest pain, unspecifie d type Disease Active - 00:00: 00 [facility] Priapism Priapism Disease Active 2013-06- 00:00: 00 [facility] Allergies, Adverse Reactions, Alerts Allergy Name Allergy Type Status Severity Reaction(s) Onset Date Inactive Date Treating Clinician Comments Source No Known Drug Allergie s DA Active U 4-25 00:00: 00 [facility] No Known Drug Allergie s DA Active U 9-16 00:00: 00 [facility] No Known Drug Allergie s DA Active U 3-29 00:00: 00 [facility] No Known Drug Allergie s DA Active U 2019-06 2-16 00:00: 00 [facility] No Known Drug Allergie s DA Active U 2019-06 2-15 00:00: 00 [facility] No Known Drug Allergie s DA Active U 2019-06 2-02 00:00: 00 [facility] Trazodon e Propensi ty to adverse reaction s Active Other - See comments 10-06 00:00: 00 [facility] TRAZODON E DRUG INGREDI Active Other-Cmnt 10-06 00:00: 00 [facility] Social History Social Habit Start Date Stop Date Quantity Comments Source History of tobacco use Cigarette Smoker [facility] Alcoholic beverage intake 2023-12-19 00:00:00 2023-12-19 00:00:00 Current drinker of alcohol (finding) [facility] History of Social function 2023-12-19 00:00:00 2023-12-19 00:00:00 [facility] Exposure to SARS-CoV-2 (event) 2022-11-01 00:00:00 2022-11-11 13:57:00 Not sure [facility] Tobacco use and exposure 2022-08-10 00:00:00 2022-08-10 00:00:00 User of smokeless tobacco [facility] Alcohol intake 2022-08-10 00:00:00 2022-08-10 00:00:00 Current drinker of alcohol (finding) [facility] Tobacco Comment 2022-08-10 00:00:00 2022-08-10 00:00:00 1/2 a pack a day [facility] Sex assigned at 1970 00:00:00 1970 00:00:00 [facility] Smoking Status Start Date Stop Date Source Smokes tobacco daily 2022-08-10 00:00:00 [facility] Medications Ordered Medication Name Filled Medication Name Start Date Stop Date Current Medication? Ordering Clinician Indication Dosage Frequency Signature (SIG) Comments Components Source NaCl 0.9% (NS) bolus infusion 1,000 mL 2023-06 22:30: 00 03-30 23:34 :00 No 1000mL at 999 mL/hr, 1,000 mL, IV Infusion, ONCE, 1 dose, On Thu03/30/24 at 1730, STAT [facility] NaCl 0.9% (NS) bolus infusion 500 mL 2023-06 22:15: 00 03-30 23:34 :00 No 500mL at 999 mL/hr, 500 mL, IV Infusion, ONCE, 1 dose, On Thu03/30/24 at 1715, STAT [facility] NaCl 0.9% (NS) bolus infusion 1,000 mL 11-11 19:45: 00 11-11 20:23 :00 No 1000mL at 999 mL/hr, 1,000 mL, IV Piggyback, ONCE, 1 dose, On Thu11/11/22 at 1445, STAT [facility] multivitami n tablet 1 tablet 08-12 15:00: 00 Yes 1{tbl} 1 tablet, Oral, DAILY, First dose on Thu08/12/22 at 0900, Until Discontinu ed, Routine [facility] foLIC acid (FOLATE) tablet 1 mg 08-12 15:00: 00 Yes 1mg 1 mg, Oral, DAILY, First dose on Thu08/12/22 at 0900, Until Discontinu ed, Routine [facility] foLIC acid 1 mg tablet 08-12 00:00: 00 09-12 04:59 :00 No [id number] 1mg Take 1 tablet by mouth in the morning for 30 days. [facility] oxazepam (SERAX) capsule 15 mg 08-11 [...] 0600, Routine [Order 2 End] [facility] thiamine (VITAMIN B1) tablet 100 mg 08-11 16:15: 00 Yes 100mg 100 mg, Oral, DAILY, First dose on Thu08/11/22 at 1015, Until Discontinu ed, [facility] enoxaparin (LOVENOX) injection 40 mg 08-10 23:00: 00 Yes 40mg 40 mg, Subcutaneo us, DAILY, First dose on Thu08/10/22 at 1700, Until Discontinu ed, Routine [facility] NaCl 0.9% (NS) IV infusion 1,000 mL 08-10 15:00: 00 Yes 1000mL at 125 mL/hr, IV Infusion, CONTINUOUS , Starting on Thu08/10/22 at 0900, Until Discontinu ed, Routine [facility] foLIC acid (FOLATE) 5 mg in NaCl 0.9% (NS) piggyback 08-10 15:00: 00 08-11 16:14 :47 No 5mg IV Piggyback, DAILY, First dose on Thu08/10/22 at 0900, Until Discontinu ed, 50 mL [facility] thiamine (VITAMIN B1) 100 mg in NaCl 0.9% (NS) piggyback 08-10 15:00: 00 08-10 16:08 :00 No 100mg IV Piggyback, DAILY, 1 dose, First dose on Thu08/10/22 at 0900, 50 mL [facility] LORazepam (ATIVAN) injection 2 mg 08-10 14:52: 57 Yes 2mg 2 mg, Slow IV Push, Q4HPRN, Starting on Thu08/10/22 at 0852, Until Discontinu ed, Routine, Seizures, Agitation, Anxiety [facility] Sliding Scale Insulin-Reg ular + Fsbg Testing 08-10 13:30: 00 Yes Subcutaneo us, AC+HS, First dose on Thu08/10/22 at 0730, Until Discontinu ed, Routine [facility] ox[facility]epam (SERAX) capsule 15 mg 08-10 12:08: 05 Yes 15mg 15 mg, Oral, Q4HPRN, Starting on Thu08/10/22 at 0608, Until Discontinu ed, Routine, Only while awake for DBP equal to or greater than 100, HR equal to or greater than 100. [facility] dextrose 10% (D10W) bolus infusion 250 [...] blood glucose is < 80 mg/dL, repeat.
[facility] glucagon (GLUCAGEN DIAGNOSTIC KIT) injection 1 mg 08-10 12:03: 20 Yes 1mg 1 mg, Intramuscu lar, PRN, Starting on Thu08/10/22 at 0603, Until Discontinu ed, JACIEL, Blood Glucose < or = 70 mg/dL and patient is NPO, unable to swallow or has mental changes. [facility] ondansetron (ZOFRAN (PF)) injection 4 mg 08-10 12:02: 53 Yes 4mg 4 mg, Slow IV Push, Q6HPRN, Starting on Thu08/10/22 at 0602, Until Discontinu ed, Routine, Nausea and Vomiting (N/V) [facility] ibuprofen (MOTRIN IB) tablet 200 mg 08-10 12:02: 45 Yes 200mg 200 mg, Oral, Q6HPRN, Starting on Thu08/10/22 at 0602, Until Discontinu ed, Routine, Pain (scale 1-3) [facility] NaCl 0.9% (NS) bolus infusion 1,000 mL 08-10 10:15: 00 08-10 13:00 :00 No 1000mL at 999 mL/hr, 1,000 mL, IV Infusion, ONCE, 1 dose, On 08/10/22 at 0415, STAT [facility] LORazepam (ATIVAN) injection 0.5 mg 08-10 09:15: 00 08-10 09:19 :00 No .5mg 0.5 mg, Slow IV Push, ONCE, 1 dose, On 08/10/22 at 0315, STAT [facility] LORazepam (ATIVAN) injection 1 mg 08-10 08:00: 00 08-10 07:05 :00 No 1mg 1 mg, Slow IV Push, ONCE NOW, 1 dose, On 08/10/22 at 0200, STAT [facility] thiamine (VITAMIN B1) injection 100 mg 08-10 06:45: 00 08-10 06:52 :00 No 100mg 100 mg, Intravenou s, ONCE, 1 dose, [facility]10/22 [facility] 0045[facility] 1 mg 08-10 05:15: 00 08-10 05:22 :00 No 1mg 1 mg, Slow IV Push, ONCE, 1 dose, On 08/09/22 at 2315, STAT [facility] ketorolac (TORADOL) injection 15 mg 2021-06 016 16:00: 00 04-06 14:50 :00 No 15mg 15 mg, Slow IV Push, ONCE, 1 dose, On 04/06/22 at 1100, [facility] ondansetron (ZOFRAN (PF)) injection 4 mg 2021-06 0-16 15:45: 00 04-06 14:50 :00 No 4mg 4 mg, Slow IV Push, ONCE, 1 dose, On 04/06/22 at 1045, [facility] oxazepam (SERAX) capsule 15 mg 12-31 06:28: 17 01-01 06:29 :00 No 15mg 15 mg, Oral, Q12H TAPER, 2 doses, First dose on Thu12/31/21 at 0130, Last dose on Thu12/31/21 at 1330, Routine [facility] multivitami n tablet 12-31 00:00: 00 Yes [id number] 1{tbl} Take 1 tablet by mouth in the morning. [facility] thiamine 100 mg tablet 12-31 00:00: 00 Yes [id number] 100mg Take 1 tablet by mouth in the morning. [facility] aspirin 81 mg chewable tablet 12-31 00:00: 00 Yes [id number] 81mg Take 1 tablet by mouth in the morning. [facility] foLIC acid 1 mg tablet 12-31 00:00: 00 01-31 04:59 :00 No [id number] 1mg Take 1 tablet by mouth in the morning for 30 days. [facility] metFORMIN 500 mg tablet 12-30 00:00: 00 Yes [id number] 500mg Take 1 tablet by mouth in the morning and 1 tablet in the evening. Take with meals. [facility] aspirin chewable tablet 81 mg 12-29 14:00: 00 Yes 81mg 81 mg, Oral, DAILY, First dose on Thu12/29/21 at 0900, Until Discontinu ed, Routine [facility] sulfur hexafluorid e microsphr (LUMASON) injection 5 mL 12-29 13:45: 00 12-29 13:45 :00 No [id number] 5mL 5 mL, Intravenou s, ONCE, 1 dose, On Thu12/29/21 at 0845, Routine
board member approving Restricted medication : STEFANIE GORMAN [facility] enoxaparin (LOVENOX) injection 40 mg 12-29 13:00: 00 Yes 40mg 40 mg, Subcutaneo us, Q24H, First dose on 12/29/21 at 0800, Until Discontinu ed, Routine [facility] Sliding Scale Insulin - Lispro (HumaLOG) + Fsbg Testing 12-29 13:00: 00 Yes Subcutaneo us, TID MEALS+HS, First dose on 12/29/21 at 0800, Until Discontinu ed, Routine [facility] diazePAM (VALIUM) injection 10 mg 12-29 05:30: 00 12-29 04:40 :00 No 10mg 10 mg, Intravenou s, ONCE, 1 dose, On 12/29/21 at 0030, Routine [facility] diazePAM (VALIUM) injection 10 mg 12-29 04:15: 00 12-29 03:17 :00 No 10mg 10 mg, Intravenou s, ONCE, 1 dose, On 12/28/21 at 2315, Routine [facility] diazePAM (VALIUM) injection 5 mg 12-29 03:45: 01 Yes 5mg 5 mg, Intravenou s, QIDPRN, Starting on 12/28/21 at 2245, Until Discontinu ed, Routine, Seizures, Agitation [facility] foLIC acid (FOLATE) tablet 1 mg 12-29 03:45: 00 Yes 1mg 1 mg, Oral, DAILY, First dose on 12/28/21 at 2245, Until Discontinu ed, Routine [facility] thiamine (VITAMIN B1) tablet 100 mg 12-29 03:45: 00 Yes 100mg 100 mg, Oral, DAILY, First dose (after last modificati on) on 12/28/21 at 2245, Until Discontinu ed, Routine [facility] glucagon (GLUCAGEN DIAGNOSTIC KIT) injection 1 mg 12-29 03:42: 19 Yes 1mg 1 mg, Intramuscu lar, PRN, Starting on 12/28/21 at 2242, Until Discontinu ed, JACIEL, Blood Glucose < or = 70 mg/dL and patient is unable to swallow or has mental changes. [facility] dextrose 10% (D10W) bolus infusion 250 [...] blood glucose is < 80 mg/dL, repeat.
[facility] LORazepam (ATIVAN) injection 1 mg 12-29 03:30: 00 12-29 02:32 :00 No 1mg 1 mg, Intravenou s, ONCE, 1 dose, On 12/28/21 at 2230, Routine
Is the medication being used for status epilepticu s? No [facility] oxazepam (SERAX) capsule 15 mg 12-29 00:28: 20 Yes 15mg 15 mg, Oral, Q4HPRN, Starting on 12/28/21 at 1928, Until Discontinu ed, Routine, Only while awake for DBP equal to or greater than 100, HR equal to or greater than 100. [facility] ondansetron (ZOFRAN (PF)) injection 4 mg 12-29 00:23: 47 Yes 4mg 4 mg, Slow IV Push, Q6HPRN, Starting on 12/28/21 at 1923, Until Discontinu ed, Routine, Nausea and Vomiting (N/V) [facility] acetaminoph en (TYLENOL) tablet 650 mg 12-29 00:23: 37 Yes 650mg 650 mg, Oral, Q6HPRN, Starting on 12/28/21 at 1923, Until Discontinu ed, Routine, Pain (scale 1-3), Temp > 38.5 C [facility] chlordiazeP OXIDE (LIBRIUM) capsule 25 mg 12-28 23:15: 00 12-28 23:24 :00 No 25mg 25 mg, Oral, ONCE, 1 dose, On 12/28/21 at 1815, JACIEL [facility] NaCl 0.9% (NS) bolus infusion 2,000 mL 12-28 22:45: 00 12-28 23:18 :00 No 2000mL at 999 mL/hr, 2,000 mL, IV Infusion, ONCE, 1 dose, On 12/28/21 at 1745, JACIEL [facility] LORazepam (ATIVAN) injection 1 mg 12-28 20:45: 00 12-28 20:49 :00 No 1mg 1 mg, Slow IV Push, ONCE, 1 dose, On 12/28/21 at 1545, STAT
Is the medication being used for status epilepticu s? No [facility] acetaminoph en (TYLENOL) 500 mg tablet 10-06 00:00: 00 Yes 500mg Take 1 Tab by mouth every 6 (six) hours as needed for Pain. [facility] Vital Signs Vital Name Observation Time Observation Value Comments S ource Systolic blood pressure 2024-03-31 02:27:00 100 mm[Hg] [facility] Diastolic blood pressure 2024-03-31 02:27:00 77 mm[Hg] [facility] Heart rate 2024-03-31 02:27:00 76 /min [facility] Body temperature 2024-03-31 02:27:00 36.67 Theresa [facility] Respiratory rate 2024-03-31 02:27:00 14 /min [facility] Oxygen saturation in Arterial blood by Pulse oximetry 2024-03-31 02:27:00 99 /min [facility] Body height 2024-03-30 22:08:00 160 cm [facility] Body weight 2024-03-30 22:08:00 58.968 kg [facility] BMI 2024-03-30 22:08:00 23.03 kg/m2 [facility] Systolic blood pressure 2023-12-13 05:16:00 125 mm[Hg] [facility] Diastolic blood pressure 2023-12-13 05:16:00 90 mm[Hg] [facility] Heart rate 2023-12-13 05:16:00 77 /min [facility] Body temperature 2023-12-13 05:16:00 36.06 Theresa [facility] Respiratory rate 2023-12-13 05:16:00 16 /min [facility] Oxygen saturation in Arterial blood by Pulse oximetry 2023-12-13 05:16:00 98 /min [facility] Body height 2023-12-13 01:35:00 157.5 cm [facility] Body weight 2023-12-13 01:35:00 65.772 kg [facility] BMI 2023-12-13 01:35:00 26.52 kg/m2 [facility] Systolic blood pressure 2023-11-05 21:00:00 106 mm[Hg] [facility] Diastolic blood pressure 2023-11-05 21:00:00 70 mm[Hg] [facility] Heart rate 2023-11-05 21:00:00 74 /min [facility] Body temperature 2023-11-05 21:00:00 36.5 Theresa [facility] Respiratory rate 2023-11-05 21:00:00 21 /min [facility] Oxygen saturation in Arterial blood by Pulse oximetry 2023-11-05 21:00:00 98 /min [facility] Body height 2023-11-05 19:59:00 160 cm [facility] Body weight 2023-11-05 19:59:00 63.504 kg [facility] BMI 2023-11-05 19:59:00 24.80 kg/m2 [facility] Systolic blood pressure 2022-11-11 20:31:31 116 mm[Hg] [facility] Diastolic blood pressure 2022-11-11 20:31:31 77 mm[Hg] [facility] Heart rate 2022-11-11 20:31:31 84 /min [facility] Respiratory rate 2022-11-11 20:31:31 12 /min [facility] Oxygen saturation in Arterial blood by Pulse oximetry 2022-11-11 20:31:31 90 /min [facility] Body temperature 2022-11-11 18:49:00 37.11 Theresa [facility] Body height 2022-11-11 18:49:00 160 cm [facility] Body weight 2022-11-11 18:49:00 68.04 kg [facility] BMI 2022-11-11 18:49:00 26.57 kg/m2 [facility] Body temperature 2022-08-11 14:00:00 36.5 Theresa [facility] Systolic blood pressure 2022-08-11 10:00:00 116 mm[Hg] [facility] Diastolic blood pressure 2022-08-11 10:00:00 71 mm[Hg] [facility] Heart rate 2022-08-11 10:00:00 70 /min [facility] Respiratory rate 2022-08-11 10:00:00 16 /min [facility] Body weight 2022-08-11 10:00:00 65.499 kg [facility] BMI 2022-08-11 10:00:00 25.58 kg/m2 [facility] Oxygen saturation in Arterial blood by Pulse oximetry 2022-08-11 10:00:00 100 /min [facility] Body height 2022-08-10 22:12:00 160 cm [facility] Systolic blood pressure 2022-04-06 16:00:00 125 mm[Hg] [facility] Diastolic blood pressure 2022-04-06 16:00:00 75 mm[Hg] [facility] Heart rate 2022-04-06 16:00:00 87 /min [facility] Respiratory rate 2022-04-06 16:00:00 22 /min [facility] Oxygen saturation in Arterial blood by Pulse oximetry 2022-04-06 16:00:00 98 /min [facility] Body temperature 2022-04-06 14:41:00 37 Theresa [facility] Body height 2022-04-06 14:41:00 160 cm [facility] Body weight 2022-04-06 14:41:00 63.504 kg [facility] BMI 2022-04-06 14:41:00 24.80 kg/m2 [facility] Systolic blood pressure 2022-01-20 02:27:00 121 mm[Hg] [facility] Diastolic blood pressure 2022-01-20 02:27:00 75 mm[Hg] [facility] Heart rate 2022-01-20 02:27:00 79 /min [facility] Respiratory rate 2022-01-20 02:27:00 12 /min [facility] Oxygen saturation in Arterial blood by Pulse oximetry 2022-01-20 02:27:00 98 /min [facility] Body temperature 2022-01-19 22:19:00 36.44 Theresa [facility] Body weight 2022-01-19 22:19:00 60.328 kg [facility] BMI 2022-01-19 22:19:00 23.56 kg/m2 [facility] Systolic blood pressure 2021-12-30 20:52:00 134 mm[Hg] [facility] Diastolic blood pressure 2021-12-30 20:52:00 76 mm[Hg] [facility] Heart rate 2021-12-30 20:52:00 67 [facility] Body temperature 2021-12-30 20:26:00 36.67 Theresa [facility] Oxygen saturation in Arterial blood by Pulse oximetry 2021-12-30 20:26:00 99 /min [facility] Respiratory rate 2021-12-30 16:21:00 18 /min [facility] Body weight 2021-12-30 08:27:00 60.464 kg [facility] BMI 2021-12-30 08:27:00 23.61 kg/m2 [facility] Body height 2021-12-29 01:29:00 160 cm [facility] Procedures Procedure Date / Time Performed Performing Clinician Source URINALYSIS 2024-03-31 01:10:00 Reina Diego [facility] CT HEAD WO CONTRAST 2024-03-30 22:37:17 Reina Arthur [facility] INFLUENZA A/B RSV COVID NAAT 2024-03-30 22:30:00 Reina Diego [facility] TROPONIN I 2024-03-30 22:19:00 Reina Diego [facility] COMP. METABOLIC PANEL ([id number]) 2024-03-30 22:19:00 Reina Diego [facility] ETHANOL 2024-03-30 22:19:00 Reina Diego [facility] CBC WITH DIFF 2024-03-30 22:19:00 Reina Diego [facility] N-TERMINAL PRO-BNP 2024-03-30 22:19[facility]23-[facility]-13 03:32:00 Rafael Byrd [facility] XR CHEST 1 VW 2023-12-13 02:18:14 Rafael Byrd [facility] LIPASE 2023-12-13 02:07:00 Rafael Byrd [facility] TROPONIN I 2023-12-13 02:07:00 Rafael Byrd [facility] COMP. METABOLIC PANEL ([id number]) 2023-12-13 02:07:00 Rafael Byrd [facility] CBC WITH DIFF 2023-12-13 02:07:00 Rafael Byrd [facility] XR CHEST 1 VW 2023-11-05 20:09:00 Sulaiman Hawkins [facility] LIPASE 2023-11-05 20:01:00 Sulaiman Hawkins [facility] MAGNESIUM 2023-11-05 20:01:00 Singer [facility] TROPONIN I 2023-11-05 20:01:00 Singer [facility] COMP. METABOLIC PANEL ([id number]) 2023-11-05 20:01:00 Singer [facility] CBC WITH DIFF 2023-11-05 20:01:00 Singer [facility] N-TERMINAL PRO-BNP 2023-11-05 20:01:00 Singer [facility] MAGNESIUM 2022-11-11 19:05:00 Ernie [facility] BASIC METABOLIC PANEL (NA, K, CL, CO2, GLUCOSE, BUN, CREATININE, CA) 2022-11-11 19:05:00 Ernie [facility] ETHANOL 2022-11-11 19:05:00 Ernie [facility] CBC WITH DIFF 2022-11-11 19:05:00 Ernie [facility] POCT GLUCOSE (AUTOMATED) 2022-08-11 13:36:00 Arvind Prado [facility] PHOSPHORUS 2022-08-11 10:35:00 Jessica Prado [facility] MAGNESIUM 2022-08-11 10:35:00 Eve [facility] AMMONIA, PLASMA 2022-08-11 10:35:00 Jessica Prado [facility] COMP. METABOLIC PANEL ([id number]) 2022-08-11 10:35:00 Jessica Prado [facility] CBC WITH DIFF 2022-08-11 10:35:00 Oswald Murphy [facility] POCT GLUCOSE (AUTOMATED) 2022-08-11 02:15:00 Arvind Prado [facility] POCT GLUCOSE (AUTOMATED) 2022-08-10 23:10:00 Arvind Prado [facility] POCT GLUCOSE (AUTOMATED) 2022-08-10 18:20:00 Arvind Prado [facility] POCT GLUCOSE (AUTOMATED) 2022-08-10 14:11:00 Arvind Prado [facility] POCT GLUCOSE (AUTOMATED) 2022-08-10 10:59:00 Gopal Driscoll [facility] COVID-19 (ID NOW RAPID TESTING) 2022-08-10 07:17:00 Rayray Driscoll [facility] LAB ONLY COVID INTERPRETATION 2022-08-10 07:17:00 Rayray Driscoll [facility] HB ECG ROUTINE & RHYTHM STRIP 2022-08-10 06:03:48 Rayray Driscoll [facility] URINALYSIS 2022-08-10 05:46:00 [facility] URINE DRUG (IMMUNOASSAY) - COMPREHENSIVE DRUG SCREEN W/O REFLEX 2022-08-10 05:45[facility]00 [facility] 2022-08-10 05:16:00 [facility] 2022-08-10 05:16:00 [facility] MAGNESIUM 2022-08-10 05:16:00 Rayray Driscoll [facility] TROPONIN I 2022-08-10 05:16:00 [facility] COMP. METABOLIC PANEL ([id number]) 2022-08-10 05:16:00 Rayray Driscoll [facility] ETHANOL 2022-08-10 05:16:00 Rayray Driscoll [facility] [facility] CBC WITH DIFF 2022-08-10 05:16:00 Rayray Driscoll [facility] N-TERMINAL PRO-BNP 2022-08-10 05:16:00 Rayray Driscoll [facility] CRITICAL CARE 2022-08-10 04:52:00 Rayray Driscoll [facility] XR CHEST 1 VW 2022-04-06 14:51:50 [facility] 2022-04-06 14:42:00 Diya Chowdhury [facility] TROPONIN I 2022-04-06 14:42:00 Diya Chowdhury Un [facility] COMP. METABOLIC PANEL (91053) 2022-04-06 14:42:00 Diya Chowdhury [facility] CBC WITH DIFF 2022-04-06 14:42:00 Diya Chowdhury [facility] PROTHROMBIN TIME / INR 2022-04-06 14:42:00 Diya Chowdhury [facility] ACTIVATED PARTIAL THRMPLAS NELDA 2022-04-06 14:42:00 Diya Chowdhury [facility] LACTIC ACID WHOLE BLOOD 2022-01-20 00:22:00 Leticia Baldwin [facility] URINE DRUG (IMMUNOASSAY) - COMPREHENSIVE DRUG SCREEN 2022-01-19 23:10:00 Leticia Baldwin [facility] URINALYSIS 2022-01-19 23:10:00 Leticia Baldwin [facility] TROPONIN I 2022-01-19 23:00:00 Leticia Baldwin [facility] COMP. METABOLIC PANEL (24264) 2022-01-19 23:00:00 Leticia Baldwin [facility] LITHIUM 2022-01-19 23:00:00 Leticia Baldwin [facility] ETHANOL 2022-01-19 23:00:00 Leticia Baldwin [facility] CBC WITH DIFF 2022-01-19 23:00:00 Leticia Baldwin [facility] COVID-19 (ID NOW RAPID TESTING) 2022-01-19 23:00:00 Leticia Baldwin [facility] CT HEAD WO CONTRAST 2022-01-19 22:49:00 Leticia Baldwin [facility] XR CHEST 1 VW 2022-01-19 22:41:00 Leticia Baldwin [facility] POCT GLUCOSE (AUTOMATED) 2022-01-19 22:25:00 Leticia Baldwin [facility] POCT GLUCOSE (AUTOMATED) 2021-12-30 21:55:00 Arvind Prado [facility] POCT GLUCOSE (AUTOMATED) 2021-12-30 16:21:00 Arvind Prado [facility] POCT GLUCOSE (AUTOMATED) 2021-12-30 12:30:00 Arvind Prado [facility] HEPATIC FUNCTION PANEL (70537) (ALB,T.PRO,BILI T,BU/BC,ALT,AST,ALK PHOS) 2021-12-30 09:28:00 Maira Gaitan [facility] POCT GLUCOSE (AUTOMATED) 2021-12-30 02:11:00 Arvind Prado [facility] POCT GLUCOSE (AUTOMATED) 2021-12-29 21:41:00 Arvind Prado [facility] POCT GLUCOSE (AUTOMATED) 2021-12-29 16:37:00 Arvind Prado [facility] TRANSTHORACIC ECHO (TTE) COMPLETE W/ CONTRAST 2021-12-29 13:05:00 Jessica Prado [facility] POCT GLUCOSE (AUTOMATED) 2021-12-29 12:41:00 Arvind Prado [facility] TROPONIN I 2021-12-29 09:42:00 Eve [facility] TROPONIN I 2021-12-29 04:55:00 Jessica Prado [facility] CT HEAD WO CONTRAST 2021-12-28 21:18:22 Poppy Renteria [facility] AMMONIA, PLASMA 2021-12-28 21:00:00 Pia Renteria [facility] COVID-19 (ID NOW RAPID TESTING) 2021-12-28 20:42:00 Pia Renteria [facility] LAB ONLY COVID INTERPRETATION 2021-12-28 20:42:00 Pia Renteria [facility] URINE DRUG (IMMUNOASSAY) - COMPREHENSIVE DRUG SCREEN W/O REFLEX 2021-12-28 20:42:00 Pia Renteria [facility] URINALYSIS 2021-12-28 20:40:00 Pia Renteria [facility] N-TERMINAL PRO-BNP 2021-12-28 20:40:00 Corina Renteria [facility] TROPONIN I 2021-12-28 20:40:00 Pia Renteria [facility] THYROID STIMULATING HORMONE 2021-12-28 20:40:00 Jessica Prado [facility] COMP. METABOLIC PANEL (33377) 2021-12-28 20:40:00 Pia Renteria [facility] LIPID PANEL (57936)(TOTAL CHOLESTEROL, TRIGLYCERIDES, HDL) 2021-12-28 20:40:00 Demetrius Langford [facility] ETHANOL 2021-12-28 20:40:00 Demetrius Langford [facility] CBC WITH DIFF 2021-12-28 20:40:00 Pia Renteria [facility] GLYCOSYLATED HEMOGLOBIN (A1C) 2021-12-28 20:40:00 Jessica Prado [facility] PROTHROMBIN TIME / INR 2021-12-28 20:40:00 Lesly Renteria [facility] XR CHEST 1 VW 2021-12-28 20:16:00 Pia Renteria [facility] HB ECG ROUTINE & RHYTHM STRIP 2021-12-28 20:04:59 Pia Renteria [facility] Encounters Start Date/Time End Date/Time Encounter Type Admission Type Attending [facility] Care Department Encounter ID Source 2021-09-17 16:45:00 Inpatient [facility] [id number] [facility] 2020-06-06 16:07:00 Inpatient [facility] [id number] [facility] 2020-06-06 06:20:00 Inpatient [facility] [id number] [facility] 2020-06-05 19:35:00 Inpatient [facility] [id number] [facility] 2020-05-23 19:53:00 Inpatient [facility] [id number] [facility] 2020-05-23 19:53:00 Inpatient [facility] [id number] [facility] 2024-05-31 12:32:47 2024-05-31 12:32:47 Outpatient SFA [id number] [id number] José Deluca 2024-03-30 17:04:00 2024-03-30 22:00:00 Emergency Reina Diego [facility] 1.2.840.114 350.1.13.10 4.2.7.2.686 [id number] [facility] 2023-12-12 20:44:00 2023-12-13 00:22:00 Emergency Rafael Byrd [facility] 1.2.840.114 350.1.13.10 4.2.7.2.686 [id number] [facility] 2023-11-05 14:54:00 2023-11-05 16:27:00 Emergency Sulaiman Hawkins [facility] 1.2.840.114 350.1.13.10 4.2.7.2.686 [id number] [facility] 2022-11-11 13:50:00 2022-11-11 16:07:00 Emergency X ERNIEEDUARDO BEJARANOS [facility] ERT [id number] [facility] 2022-11-11 13:50:00 2022-11-11 16:07:00 Emergency Hemant Klein [facility] 1.2.840.114 350.1.13.10 4.2.7.2.686 [id number] [facility] 2022-10-14 20:59:00 2022-10-14 20:59:00 Emergency [facility] [id number] [facility] 2022-10-14 20:59:00 2022-10-14 20:59:00 Emergency Emergency Pan Pinto [facility] [id number] [facility] 2022-08-09 22:59:00 2022-08-11 13:02:00 Outpatient X JESSICA PRADO [facility] MARGO [id number] [facility] 2022-08-09 22:59:00 2022-08-11 13:02:00 Emergency Rayray Driscoll Jelani Edionwe Oswald [facility] 1.2.840.114 350.1.13.10 4.2.7.2.686 [id number] [facility] 2022-04-06 09:38:00 2022-04-06 11:42:00 Emergency X DIYA CHOWDHURY [facility] ERT [id number] [facility] 2022-04-06 09:38:00 2022-04-06 11:42:00 Emergency ToddDiya domingo [facility] 1.2.840.114 350.1.13.10 4.2.7.2.686 [id number] [facility] 2022-03-07 12:38:00 2022-03-07 12:38:00 Emergency [facility] [id number] [facility] 2022-03-07 12:38:00 2022-03-07 12:38:00 Emergency Emergency Fidel Cuellar [facility] [id number] [facility] 2022-01-19 17:18:00 2022-01-19 22:00:00 Emergency DIRK IRIZARRY [facility] ERT [id number] [facility] 2022-01-19 17:18:00 2022-01-19 22:00:00 Emergency Leticia Baldwin Julio C [facility] 1.2.840.114 350.1.13.10 4.2.7.2.686 [id number] [facility] 2021-12-31 00:00:00 2021-12-31 00:00:00 Transition of Care Faye Portillo 1.2.840.114 350.1.13.10 4.2.7.2.686 [id number] [facility] 2021-12-28 14:53:00 2021-12-30 17:42:00 Inpatient X JESSICA PRADO [facility] [id number] [facility] 2021-12-28 14:53:00 2021-12-30 17:42:00 Hospital Encounter Pia Renteria Jelani [facility] 1.2.840.114 350.1.13.10 4.2.7.2.686 [id number] [facility] 2021-09-17 16:47:00 2021-09-17 16:47:00 Emergency [facility] [id number] [facility] 2020-06-06 16:07:00 2020-06-06 16:07:00 Emergency [facility] [id number] [facility] Results Test Description Test Time [...] 1 cm frontal scalp epidermal inclusion 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 (73053)2024-03-30 22:51:22* Test Item Value Reference Range Interpretation Comme nts NA (test code = 1522415975) 133 mmol/L 135-145 L K (test code = 9067460352) 4.2 mmol/L 3.5-5.0 CL (test code = 0673801710) 105 mmol/L 98-108 CO2 TOTAL (test code = 4596718416) 20 mmol/L 23-31 L AGAP (test code = 0796517004) 8 2-16 BUN (test code = 2068278500) 19 mg/dL 7-23 GLUCOSE (test code = 6776576255) 153 mg/dL 70-110 H CREATININE (test code = 2160-0) 1.08 mg/dL 0.60-1.25 TOTAL BILI (test code = 2548782878) 0.3 mg/dL 0.1-1.1 CALCIUM (test code = 0890254006) 10.1 mg/dL 8.6-10.6 T PROTEIN (test code = 8992170931) 6.5 g/dL 6.3-8.2 ALBUMIN (test code = 1564403183) 3.9 g/dL 3.5-5.0 ALK PHOS (test code = 4849589547) 93 U/L 34-122 ALTv (test code = 1742-6) 14 U/L 5-50 AST(SGOT) (test code = 7900963675) 17 U/L 13-40 eGFR (test code = 93209-8) 81.5 mL/min/1.73m2 CKD-EPI eGFR (2020). Assuming creatinine has been stable day-to-day for at least three months, the eGFR indicates Category G2 (60 - 89 mL/min/1.73 m2) Lab Interpretation (test code = 60523-2) [facility] [id number] 22:39:22* Test Item Value Reference Range Interpretation [...] 33.1 g/dL 31.2-35.0 RDW-SD (test code = 44854-2) 45.6 fL 38.5-51.6 RDW-CV (test code = 788-0) 13.3 % 12.1-15.4 PLT (test code = 777-3) 289 150-328 MPV (test code = 74526-6) 8.7 fL 9.8-13.0 L NRBC/100 WBC (test code = 8071737732) 0.0 0.0-10.0 NRBC x10^3 (test code = 5692237672) See_Comment [Automated messa ge] The system which generated this result transmitted reference range: 10*3/?L. The reference range was not used to interpret this result as normal/abnormal. GRAN MAT (NEUT) % (test code = 770-8) 72.9 % IMM GRAN % (test code = 2593436077) 0.40 % LYMPH % (test code = 736-9) 15.2 % MONO % (test code = 5905-5) 8.9 % EOS % (test code = 713-8) 1.8 % BASO % (test code = 706-2) 0.8 % GRAN MAT x10^3(ANC) (test code = 1207426997) 6.02 10*3/uL 1.99-6.95 IMM GRAN x10^3 (test code = 0728751745) 0.03 10*3/uL 0.00-0.06 LYMPH x10^3 (test code = 731-0) 1.26 10*3/uL 1.09-3.23 MONO x10^3 (test code = 742-7) 0.74 10*3/uL 0.36-1.02 EOS x10^3 (test code = 711-2) 0.15 10*3/uL 0.06-0.53 BASO x10^3 (test code = 704-7) 0.07 10*3/uL 0.01-0.09 Lab Interpretation (test code = 28429-5) Abnormal [facility] [id number] 04:40:11* Test Item Value Reference Range Interpretation Comme nts TROPONIN I (test code = 5929782917) 0.002 ng/mL <=0.034 JUAN ALBERTO (test code [...] of biotin. Lab Interpretation (test code = 88929-4) Normal [facility] [id number] 02:57:27* Test Item Value Reference Range Interpretation Comme nts TROPONIN I (test code = 5078575362) 0.003 ng/mL <=0.034 JUAN ALBERTO (test code [...] of biotin. Lab Interpretation (test code = 23859-9) Normal [facility]. METABOLIC PANEL (98262)2023-12-13 02:46:25* Test Item Value Reference Range Interpretation Comme nts NA (test code = 7104800218) 144 mmol/L 135-145 K (test code = 1305764444) 3.9 mmol/L 3.5-5.0 CL (test code = 7897325064) 110 mmol/L 98-108 H CO2 TOTAL (test code = 2112168786) 20 mmol/L 23-31 L AGAP (test code = 0955681046) 14 2-16 BUN (test code = 3411392764) 13 mg/dL 7-23 GLUCOSE (test code = 9955444339) 163 mg/dL 70-110 H CREATININE (test code = 2160-0) 0.63 mg/dL 0.60-1.25 TOTAL BILI (test code = 8836692799) 0.3 mg/dL 0.1-1.1 CALCIUM (test code = 9879923504) 9.0 mg/dL 8.6-10.6 T PROTEIN (test code = 5777745069) 7.2 g/dL 6.3-8.2 ALBUMIN (test code = 3522909294) 4.1 g/dL 3.5-5.0 ALK PHOS (test code = 4658868888) 129 U/L 34-122 H ALTv (test code = 1742-6) 15 U/L 5-50 AST(SGOT) (test code = 1528974407) 34 U/L 13-40 eGFR (test code = 21354-2) 113.7 mL/min/1.73m2 CKD-EPI eGFR (2020). Assuming creatinine has been stable day-to-day for at least three months, the eGFR indicates Category G1 (>= 90 mL/min/1.73 m2) Lab Interpretation (test code = 80291-8) [facility]normal [facility], [id number] 02:45:25* Test Item Value Reference Range Interpretation Comme nts LIPASE (test code = 9641076981) 47 U/L 0-220 Lab Interpretation (test cod e = 92232-2) Normal [facility] CHE[facility] 1 [id number] 02:40:35History: chest pain . Exam: XR CHEST 1 VW Date: 12/12/2023 9:15 PM Ordering provider: RAFAEL BYRD Technical quality: Adequate Comparison: 11/05/2023. Findings: Frontal view of the chest is obtained. The cardiac silhouette is normal in size. No evidence of infiltrate,pleural effusion, CHF, or pneumothorax.[facility] WITH [id number] 02:33:48* Test Item Value Reference Range Interpretation [...] 33.2 g/dL 31.2-35.0 RDW-SD (test code = 12473-6) 54.4 fL 38.5-51.6 H RDW-CV (test code = 788-0) 15.9 % 12.1-15.4 H PLT (test code = 777-3) 318 150-328 MPV (test code = 86871-7) 8.5 fL 9.8-13.0 L NRBC/100 WBC (test code = 5218086093) 0.0 0.0-10.0 NRBC x10^3 (test code = 8953861211) See_Comment [Automated messa ge] The system which generated this result transmitted reference range: 10*3/?L. The reference range was not used to interpret this result as normal/abnormal. GRAN MAT (NEUT) % (test code = 770-8) 50.1 % IMM GRAN % (test code = 8065893592) 0.40 % LYMPH % (test code = 736-9) 37.6 % MONO % (test code = 5905-5) 6.8 % EOS % (test code = 713-8) 4.1 % BASO % (test code = 706-2) 1.0 % GRAN MAT x10^3(ANC) (test code = 2904132784) 3.66 10*3/uL 1.99-6.95 IMM GRAN x10^3 (test code = 3622231129) 0.03 10*3/uL 0.00-0.06 LYMPH x10^3 (test code = 731-0) 2.75 10*3/uL 1.09-3.23 MONO x10^3 (test code = 742-7) 0.50 10*3/uL 0.36-1.02 EOS x10^3 (test code = 711-2) 0.30 10*3/uL 0.06-0.53 BASO x10^3 (test code = 704-7) 0.07 10*3/uL 0.01-0.09 Lab Interpretation (test code = 84909-9) Abnormal [facility] 1 [id number] 20:15:30HISTORY: Chest pain. TECHNIQUE: Portable AP view of the chest is obtained. Comparison is beingmade with 04/06/2022 study. FINDINGS: No acute pneumonia. No pneumothorax or pleural effusion orpulmonarycongestion detected. Cardiac size is within normal limits.Prominent osteophytes are seen along right left vertebral margins at middleand lower thoracic spines. CONCLUSIONS: No signs of acute cardiopul monary disease.[facility] AreaETH[facility]OL2023-05-23 19:45:56 ALCOHOL<10mg/dL11/11/2022 2:45 PM [facility]10 Iznbhtil91-509 Toxic>100 Depression of DEVELOPER SUPPORT ENGINEER>400 Fatalities ReportedUnMemorial Herm[facility] KingwoodBASIC METABOLIC PANEL (NA, K, CL, CO2, GLUCOSE, BUN, CREATININE, CA)2022-11-11 19:41:47* Test Item Value Reference Range Interpretation Comme nts NA (test code = 4378250223) 138 mmol/L 135-145 K (test code = 9484467027) 4.8 mmol/L 3.5-5.0 CL (test code = 6653243400) 103 mmol/L 98-108 CO2 TOTAL (test code = 1223216215) 26 mmol/L 23-31 AGAP (test code = 5305959805) 9 2-16 BUN (test code = 7939595296) 17 mg/dL 7-23 GLUCOSE (test code = 2224199217) 219 mg/dL 70-110 H CREATININE (test code = 7674052773) 0.72 mg/dL 0.60-1.25 CALCIUM (test code = 5852975511) 10.0 mg/dL 8.6-10.6 eGFR (test code = 9984710018) 114.6 mL/min/1.73m2 JUAN ALBERTO (test code = [...] imaging tests). Lab Interpretation (test code = 67351-9) Abnormal [facility]2023-05-23 19:41:47* Test Item Value Reference Range Interpretation Comme nts MAGNESIUM (test code = 7000059166) 1.8 mg/dL 1.7-2.4 Lab Interpretation (test cod e = 01820-1) Normal [facility] Area[facility] WITH [id number] 19:25:26* Test Item Value Reference Range Interpretation [...] 33.9 g/dL 31.2-35.0 RDW-SD (test code = 71196-6) 46.0 fL 38.5-51.6 RDW-CV (test code = 788-0) 13.5 % 12.1-15.4 PLT (test code = 777-3) 237 See_Comment [Automated messa ge] The system which generated this result transmitted reference range: 150 - 328 10*3/?L. The reference range was not used to interpret this result as normal/abnormal. MPV (test code = 71749-0) 8.9 fL 9.8-13.0 L NRBC/100 WBC (test code = 0136996577) 0.0 See_Comment [Automated Zando ssage] The system which generated this result transmitted reference range: 0.0 - 10.0 /100 WBCs. The reference range was not used to interpret this result as normal/abnormal. NRBC x10^3 (test code = 8157576470) See_Comment [Automated messa ge] The system which generated this result transmitted reference range: 10*3/?L. The reference range was not used to interpret this result as normal/abnormal. GRAN MAT (NEUT) % (test code = 770-8) 71.2 % IMM GRAN % (test code = 0259726911) 0.30 % LYMPH % (test code = 736-9) 18.2 % MONO % (test code = 5905-5) 8.4 % EOS % (test code = 713-8) 1.0 % BASO % (test code = 706-2) 0.9 % GRAN MAT x10^3(ANC) (test code = 1903240143) 4.86 10*3/uL 1.99-6.95 IMM GRAN x10^3 (test code = 5772263945) 0.00-0.06 LYMPH x10^3 (test code = 731-0) 1.24 10*3/uL 1.09-3.23 MONO x10^3 (test code = 742-7) 0.57 10*3/uL 0.36-1.02 EOS x10^3 (test code = 711-2) 0.07 10*3/uL 0.06-0.53 BASO x10^3 (test code = 704-7) 0.06 10*3/uL 0.01-0.09 Lab Interpretation (test code = 75292-5) Abnormal [facility], Urinalysis Rflx Cult/Sitel2871-14-80 22:20:00* Test Item Value Reference Range Interpretation Comme nts Color,Urine (test code = UCOL) Yellow Yellow Clarity,Urine (test code = UCLAR) Clear Clear Ph, Urine (test code = UPH) 7.0 5.0-9.0 N Specific [place],Urine (test code = USG) 1.020 1.005-1.030 N [...] code = ULEU) Negative mg/dL Negative Drug Screen,[id number] 22:20:00* Test Item Value Reference Range Interpretation [...] UPROP) Negative Negative Complete Blood Count Auto [id number] 21:21:00* Test Item Value Reference Range Interpretation [...] code = NRBCP) 0 % Comprehensive Metabolic [id number] 21:21:00* Test Item Value Reference Range Interpretation [...] a race coefficient. Additional information canbe found at:[email or web address] 5.[email or web address] ([email or web address]) [Automated message] The system [...] = ALP) 134 U/L 46-116 H Ethanol Csmdu1261-58-96 21:21:00* Test Item Value Reference Range Interpretation Comme nts Ethanol (test code = ETOH) < 3 mg/dL The pharmacologi yudy response to blood alcohol levels mayvary from individual to individual. The fatal concentrationhas been reported to be >400mg/dL. POCT GLUCOSE (AUTOMATED)2022-08-11 13:40:35* Test Item Value Reference Range Interpretation Comme [facility] POCT GLU (test code = 9925662705) 121 mg/dL 70-110 H Lab Interpretation (test cod e = 96905-1) Abnormal [facility] GLUCOSE (AUTOMATED)2022-08-11 02:18:58* Test Item Value Reference Range Interpretation Comme [facility] POCT GLU (test code = 7192087204) 183 mg/dL 70-110 H Lab Interpretation (test cod e = 48008-2) Abnormal [facility] GLUCOSE (AUTOMATED)2022-08-10 23:16:11* Test Item Value Reference Range Interpretation Comme nts POCT GLU (test code = 4872268897) 176 mg/dL 70-110 H Lab Interpretation (test cod e = 73216-6) Abnormal [facility] GLUCOSE (AUTOMATED)2022-08-10 18:22:51* Test Item Value Reference Range Interpretation Comme nts POCT GLU (test code = 5311005728) 165 mg/dL 70-110 H Lab Interpretation (test cod e = 22138-1) Abnormal [facility] GLUCOSE (AUTOMATED)2022-08-10 14:18:05* Test Item Value Reference Range Interpretation Comme nts POCT GLU (test code = 8715162038) 138 mg/dL 70-110 H Lab Interpretation (test cod e = 94332-9) Abnormal [facility] GLUCOSE (AUTOMATED)2022-08-10 11:01:21* Test Item Value Reference Range Interpretation Comme nts POCT GLU (test code = 5621432609) 143 mg/dL 70-110 H Lab Interpretation (test cod e = 18662-9) Abnormal [facility] Area[facility]OP[facility] [id number] 06:51:18* Test Item Value Reference Range Interpretation Comme nts TROPONIN I (test code = 3484052996) 0.008 ng/mL <=0.034 JUAN ALBERTO (test code [...] of biotin. Lab Interpretation (test code = 37554-1) Normal [facility]MINAL [id number]-[id number] 06:47:37* Test Item Value Reference Range Interpretation Comme nts NT-proBNP (test code = 3742971871) 37 pg/mL <=125 JUAN ALBERTO (test code = JUAN ALBERTO) Biotin has been reported to cause a negative bias, interpret results relative to patient's use of biotin. Lab Interpretation (test code = 78052-4) Normal [facility] AreaETHANOL2023-02-19 06:25:52 ALCOHOL<10mg/dL08/10/2022 12:25 AM [facility]<10 Kgxkluti10-208 Toxic>100 Depression of DEVELOPER SUPPORT ENGINEER>400 Fatalities ReportedUnMemorial Herm[facility] KingwoodCOMP. METABOLIC PANEL (31393)2022-08-10 06:19:15* Test Item Value Reference Range Interpretation Comme nts NA (test code = 4669449498) 135 mmol/L 135-145 K (test code = 4399662610) 4.3 mmol/L 3.5-5.0 CL (test code = 5107251741) 98 mmol/L 98-108 CO2 TOTAL (test code = 7981631913) 30 mmol/L 23-31 AGAP (test code = 9668471805) 7 2-16 BUN (test code = 2757680292) 11 mg/dL 7-23 GLUCOSE (test code = 4601847771) 153 mg/dL 70-110 H CREATININE (test code = 0118227683) 0.77 mg/dL 0.60-1.25 TOTAL BILI (test code = 9242910322) 0.9 mg/dL 0.1-1.1 CALCIUM (test code = 6013518996) 10.0 mg/dL 8.6-10.6 T PROTEIN (test code = 9390280688) 7.7 g/dL 6.3-8.2 ALBUMIN (test code = 0365598870) 4.6 g/dL 3.5-5.0 ALK PHOS (test code = 8211626961) 92 U/L 34-122 ALTv (test code = 1742-6) 35 U/L 5-50 AST(SGOT) (test code = 3300069968) 42 U/L 13-40 H eGFR (test code = 7070836509) 106.1 mL/min/1.73m2 JUAN ALBERTO (test code = [...] imaging tests). Lab Interpretation (test code = 84848-7) [facility]* Test Item Value Reference Range Interpretation Comme nts MAGNESIUM (test code = 7058085316) 2.2 mg/dL 1.7-2.4 Lab Interpretation (test cod e = 27985-4) [facility]:18:55* Test Item Value Reference Range Interpretation Comme nts LIPASE (test code = 2306863336) 18 U/L 0-220 Lab Interpretation (test cod e = 85120-9) [facility] [id number] 06:18:55* Test Item Value Reference Range Interpretation Comme nts CK (test code = 7859504498) 174 U/L 33-194 Lab Interpretation (test cod e = 54363-1) [facility] WITH [id number] 06:02:35* Test Item Value Reference Range Interpretation Comme nts WBC (test code = 6690-2) 7.50 See_Comment [Automated [employer]] The system which generated this result transmitted [...] 32.4 g/dL 31.2-35.0 RDW-SD (test code = 08416-4) 50.2 fL 38.5-51.6 RDW-CV (test code = 788-0) 14.3 % 12.1-15.4 PLT (test code = 777-3) 241 See_Comment [Automated messa ge] The system which generated this result transmitted reference range: 150 - 328 10*3/?L. The reference range was not used to interpret this result as normal/abnormal. MPV (test code = 83845-8) 8.6 fL 9.8-13.0 L NRBC/100 WBC (test code = 9108347253) 0.0 See_Comment [Automated Zando ssage] The system which generated this result transmitted reference range: 0.0 - 10.0 /100 WBCs. The reference range was not used to interpret this result as normal/abnormal. NRBC x10^3 (test code = 7326985783) See_Comment [Automated messa ge] The system which generated this result transmitted reference range: 10*3/?L. The reference range was not used to interpret this result as normal/abnormal. GRAN MAT (NEUT) % (test code = 770-8) 63.9 % IMM GRAN % (test code = 1769349911) 0.50 % LYMPH % (test code = 736-9) 17.6 % MONO % (test code = 5905-5) 16.5 % EOS % (test code = 713-8) 0.7 % BASO % (test code = 706-2) 0.8 % GRAN MAT x10^3(ANC) (test code = 8936111642) 4.79 10*3/uL 1.99-6.95 IMM GRAN x10^3 (test code = 3411470313) 0.04 10*3/uL 0.00-0.06 LYMPH x10^3 (test code = 731-0) 1.32 10*3/uL 1.09-3.23 MONO x10^3 (test code = 742-7) 1.24 10*3/uL 0.36-1.02 H EOS x10^3 (test code = 711-2) 0.05 10*3/uL 0.06-0.53 L BASO x10^3 (test code = 704-7) 0.06 10*3/uL 0.01-0.09 Lab Interpretation (test code = 82129-8) [facility] J6231-00-09 15:15:32* Test Item Value Reference Range Interpretation Comments TROPONIN I (test code = 1490899193) 0.007 ng/mL See_Comment [Automated message] The system [...] of biotin. Lab Interpretation (test code = 36261-9) Normal [facility] AreaaPTT2022-10-16 15:08:29* Test Item Value Reference Range Interpretation [...] 30 seconds. Lab Interpretation (test code = 71453-2) Normal [facility] AreaPROTHROMBIN TIME / [id number] 15:06:28* Test Item Value Reference Range Interpretation [...] the indications. Lab Interpretation (test code = 80957-0) Normal [facility] AreaCOMP. METABOLIC PANEL (19769)2022-04-06 15:03:31* Test Item Value Reference Range Interpretation Comme [facility] NA (test code = 6155582332) 136 mmol/L 135-145 K (test code = 9715114427) 5.0 mmol/L 3.5-5 CL (test code = 6731056536) 104 mmol/L 98-108 CO2 TOTAL (test code = 6083833198) 21 mmol/L 23-31 L AGAP (test code = 7673454981) 2-16 BUN (test code = 7415703840) 11 mg/dL 7-23 GLUCOSE (test code = 6925026051) 162 mg/dL 70-110 H CREATININE (test code = 9891585584) 0.52 mg/dL 0.6-1.25 L TOTAL BILI (test code = 7615466740) 1.0 mg/dL 0.1-1.1 CALCIUM (test code = 1965913215) 9.3 mg/dL 8.6-10.6 T PROTEIN (test code = 4175198492) 7.4 g/dL 6.3-8.2 ALBUMIN (test code = 1096373724) 4.4 g/dL 3.5-5 ALK PHOS (test code = 9762857065) 134 U/L 34-122 H ALTv (test code = 1742-6) 17 U/L 5-50 AST(SGOT) (test code = 1436418712) 38 U/L 13-40 eGFR (test code = 0905522889) mL/min/1.73m2 JUAN ALBERTO (test code = JUAN [...] imaging tests). Lab Interpretation (test code = 67615-7) [facility]normal [facility] AreaLIPASE, LGZEP0706-86-06 15:03:31* Test Item Value Reference Range Interpretation Comme nts LIPASE (test code = 3596952441) 29 U/L 0-220 Lab Interpretation (test cod e = 67272-4) Normal [facility] AreaCB WITH INFC8922-42-72 14:51:49* Test Item Value Reference Range Interpretation [...] 34.0 g/dL 31.2-35 RDW-SD (test code = 86768-7) 45.9 fL 38.5-51.6 RDW-CV (test code = 788-0) 13.3 % 12.1-15.4 PLT (test code = 777-3) See_Comment [Automated messa ge] The system which generated this result transmitted reference range: 150 - 328 10*3/?L. The reference range was not used to interpret this result as normal/abnormal. MPV (test code = 64020-4) 8.4 fL 9.8-13 L NRBC/100 WBC (test code = 9589679810) See_Comment [Automated Zando ssage] The system which generated this result transmitted reference range: 0.0 - 10.0 /100 WBCs. The reference range was not used to interpret this result as normal/abnormal. NRBC x10^3 (test code = 4219245269) See_Comment [Automated messa ge] The system which generated this result transmitted reference range: 10*3/?L. The reference range was not used to interpret this result as normal/abnormal. GRAN MAT (NEUT) % (test code = 770-8) 63.0 % IMM GRAN % (test code = 8542076122) 0.50 % LYMPH % (test code = 736-9) 25.2 % MONO % (test code = 5905-5) 9.8 % EOS % (test code = 713-8) 0.3 % BASO % (test code = 706-2) 1.2 % GRAN MAT x10^3(ANC) (test code = 5119470438) 3.73 10*3/uL 1.99-6.95 IMM GRAN x10^3 (test code = 1108748555) 0.03 10*3/uL 0-0.06 LYMPH x10^3 (test code = 731-0) 1.49 10*3/uL 1.09-3.23 MONO x10^3 (test code = 742-7) 0.58 10*3/uL 0.36-1.02 EOS x10^3 (test code = 711-2) 0.06-0.53 L BASO x10^3 (test code = 704-7) 0.07 10*3/uL 0.01-0.09 Lab Interpretation (test code = 11210-7) [facility]normal [facility] AreaUA, Urinalysis Rflx Cult/Bdmtv6536-55-98 13:53:00* Test Item Value Reference Range Interpretation Comme nts Color,Urine (test code = UCOL) Yellow Yellow Clarity,Urine (test code = UCLAR) Cloudy Clear A Ph, Urine (test code = UPH) 7.5 5.0-9.0 N Specific [place],Urine (test code = USG) 1.025 1.005-1.030 N [...] = ULEU) Negative mg/dL Negative UF REFLEXDrug Screen,Ulbht1274-64-80 13:53:00* Test Item Value Reference Range Interpretation [...] UPROP) Negative Negative Complete Blood Count Auto Aori3579-62-19 12:58:00* Test Item Value Reference Range Interpretation [...] = NRBCP) 0 % Coronavirus PCR, COVID19 Ysryz3755-78-81 12:58:00* Test Item Value Reference Range Interpretation Comme nts Coronavirus PCR, COVID19 Rapid (test code = SARSCOV2) Coronavirus PCR, COVID19 Rapid (test code = AAQRFLO47.1) Reference Range: Negative SARS-CoV-2 PCR Result: (test code = SARS-CoV-2 PCR Result:) Negative by RT-PCR COVID-19 Status: AsymptomaticComprehensive Metabolic Pafrw5899-49-72 12:58:00* Test Item Value Reference Range Interpretation [...] = ALP) 144 U/L 46-116 H Ethanol Ubzwh7847-33-96 12:58:00* Test Item Value Reference Range Interpretation Comme nts Ethanol (test code = ETOH) < 3 mg/dL The pharmacologi yudy response to blood alcohol levels mayvary from individual to individual. The fatal concentrationhas been reported to be >400mg/dL. DNFWLJC4088-41-04 01:47:56* Test Item Value Reference Range Interpretation Comme nts [place] (test code = 2879698805) 0.7 mmol/L 0.6-1.2 JUAN ALBERTO (test code = JUAN ALBERTO) Toxic Range: ? Greater than 1.2 mmol/L Lab Interpretation (test code = 34454-6) Normal [facility] AreaTROPONIN J5230-16-38 00:26:53* Test Item Value Reference Range Interpretation Comments TROPONIN I (test code = 0873343699) 0.002 ng/mL See_Comment [Automated message] The system [...] of biotin. Lab Interpretation (test code = 34435-4) Normal [facility] AreaETHANOL2022-08-01 00:18:52 ALCOHOL<10mg/dL01/19/2022 7:18 PM [facility]10 Lcivqtnd17-729 Toxic>100 Depression of DEVELOPER SUPPORT ENGINEER>400 Fatalities ReportedCorp[facility] AreaCOMP. METABOLIC PANEL (43735)2022-01-20 00:16:16* Test Item Value Reference Range Interpretation Comme nts NA (test code = 4360262681) 137 mmol/L 135-145 K (test code = 4332618204) 4.5 mmol/L 3.5-5 CL (test code = 9425386771) 103 mmol/L 98-108 CO2 TOTAL (test code = 5974956320) 26 mmol/L 23-31 AGAP (test code = 4820430761) 2-16 BUN (test code = 8247104566) 10 mg/dL 7-23 GLUCOSE (test code = 0907101253) 121 mg/dL 70-110 H CREATININE (test code = 2575597192) 0.65 mg/dL 0.6-1.25 TOTAL BILI (test code = 2998624743) 0.8 mg/dL 0.1-1.1 CALCIUM (test code = 0099870666) 11.4 mg/dL 8.6-10.6 H T PROTEIN (test code = 1070082539) 7.2 g/dL 6.3-8.2 ALBUMIN (test code = 2724819046) 4.6 g/dL 3.5-5 ALK PHOS (test code = 8587818092) 112 U/L 34-122 ALTv (test code = 1742-6) 19 U/L 5-50 AST(SGOT) (test code = 4948280699) 26 U/L 13-40 eGFR (test code = 9854698561) mL/min/1.73m2 JUAN ALBERTO (test code = JUAN [...] imaging tests). Lab Interpretation (test code = 05755-4) Abnormal [facility] WITH PCCY4226-09-97 23:43:54* Test Item Value Reference Range Interpretation Comme nts WBC (test code = 6690-2) See_Comment [Automated Menti[employer]ova] The system which generated this result transmitted reference range: 4.20 - 10.70 10*3/?L. The reference range was not used to interpret this result as normal/abnormal. RBC (test code = 789-8) See_Comment [Automated [employer] ge] The system which generated this result [...] 34.4 g/dL 31.2-35 RDW-SD (test code = 07492-3) 44.0 fL 38.5-51.6 RDW-CV (test code = 788-0) 12.6 % 12.1-15.4 PLT (test code = 777-3) See_Comment [Automated [employer] ge] The system which generated this result transmitted reference range: 150 - 328 10*3/?L. The reference range was not used to interpret this result as normal/abnormal. MPV (test code = 25620-6) 9.1 fL 9.8-13 L NRBC/100 WBC (test code = 1896686361) See_Comment [Automated Zando ssage] The system which generated this result transmitted reference range: 0.0 - 10.0 /100 WBCs. The reference range was not used to interpret this result as normal/abnormal. NRBC x10^3 (test code = 8522975360) See_Comment [Automated [employer] ge] The system which generated this result transmitted reference range: 10*3/?L. The reference range was not used to interpret this result as normal/abnormal. GRAN MAT (NEUT) % (test code = 770-8) 69.8 % IMM GRAN % (test code = 9968320871) 0.40 % LYMPH % (test code = 736-9) 18.0 % MONO % (test code = 5905-5) 10.9 % EOS % (test code = 713-8) 0.1 % BASO % (test code = 706-2) 0.8 % GRAN MAT x10^3(ANC) (test code = 2048708046) 5.58 10*3/uL 1.99-6.95 IMM GRAN x10^3 (test code = 9388428490) 0.03 10*3/uL 0-0.06 LYMPH x10^3 (test code = 731-0) 1.44 10*3/uL 1.09-3.23 MONO x10^3 (test code = 742-7) 0.87 10*3/uL 0.36-1.02 EOS x10^3 (test code = 711-2) 0.06-0.53 L BASO x10^3 (test code = 704-7) 0.06 10*3/uL 0.01-0.09 Lab Interpretation (test code = 32850-1) Abnormal [facility] GLUCOSE (AUTOMATED)2022-01-19 22:27:41* Test Item Value Reference Range Interpretation Comme nts POCT GLU (test code = 4441631464) 123 mg/dL 70-110 H Lab Interpretation (test cod e = 64687-2) Abnormal [facility] GLUCOSE (AUTOMATED)2021-12-30 22:08:16* Test Item Value Reference Range Interpretation Comme nts POCT GLU (test code = 1344761502) 167 mg/dL 70-110 H Lab Interpretation (test cod e = 10695-6) Abnormal [facility] GLUCOSE (AUTOMATED)2021-12-30 16:50:40* Test Item Value Reference Range Interpretation Comme nts POCT GLU (test code = 1283441985) 154 mg/dL 70-110 H Lab Interpretation (test cod e = 37160-4) Abnormal [facility] GLUCOSE (AUTOMATED)2021-12-30 12:38:43* Test Item Value Reference Range Interpretation Comme nts POCT GLU (test code = 9732997973) 164 mg/dL 70-110 H Lab Interpretation (test cod e = 52743-5) Abnormal [facility] GLUCOSE (AUTOMATED)2021-12-30 02:14:58* Test Item Value Reference Range Interpretation Comme nts POCT GLU (test code = 2105071770) 220 mg/dL 70-110 H Lab Interpretation (test cod e = 36614-1) Abnormal [facility] GLUCOSE (AUTOMATED)2021-12-29 21:50:02* Test Item Value Reference Range Interpretation Comme [facility] POCT GLU (test code = 8543706856) 191 mg/dL 70-110 H Lab Interpretation (test cod e = 99308-4) [facility]normal [facility] ([facility])2021-12-29 20:15:01* Test Item Value Reference Range Interpretation Comme [facility] POCT GLU (test code = 0261571844) 163 mg/dL 70-110 H Lab Interpretation (test cod e = 74914-3) Abnormal [facility] AreaTransthoracic echo (TTE)2021-12-29 19:12:22* Test Item Value Reference Range Interpretation Comme nts Height (test code = 0393356145) in Weight (test code = 1244823693) lbs Systolic BP (test code = 3006059533) mmHg Diastolic BP (test code = 5677392445) mmHg Heart Rate (test code = 0231196916) bpm BSA (test code = 5058806560) 1.62 m2 Ao root annulus (test code = 0233464767) 2.45 cm Ao root diam (test code = 3705948829) 2.45 cm Aortic root (test code = 5707680996) 2.45 cm ACS (test code = 6387982170) 1.66 cm LA size (test code = 4862502931) 3.2 cm LVOT diameter (test code = 0209121291) 1.95 cm LVIDD (test code = 1710768539) 3.60 cm IVS (test code = 3506448975) 0.94 cm Interventricular Septum Diastolic Thickness by 2D (test code = 5995834) 0.94 cm LVPWD (test code = 2895844281) 0.80 cm PW (test code = 8574016373) 0.80 cm 0.6-1.1 EF(Teich) (test code = 8273431274) 52.80 % LVIDS (test code = 0548659038) 2.60 cm FS (test code = 7862678556) 27 % EF - 2D (test code = 60830808) 52.80 % LAV(MOD-sp4) (test code = 4661529850) 16.80 mL MV Peak E Jovany (test code = 9756740531) 46.1 cm/s E wave decelartion time (test code = 8041392413) 0.31 s MV Peak A Jovany (test code = 9855816578) 58.1 cm/s E/A ratio (test code = 4593736110) ratio MV E/e' septal (test code = 4829284256) 5.7 cm/s Tapse (test code = 2785122593) 1.60 cm LVOT stroke volume (test code = 8480770803) 52.10 cm3 LVOT peak jovany (test code = 4875864333) 110.6 cm/s LVOT mn grad (test code = 5873021969) mmHg AV LVOT peak gradient (test code = 0217318343) mmHg LVOT peak VTI (test code = 6896539368) 17.4 cm LV V1 mean (test code = 8759547150) 66.10 cm/s Aortic valve mean velocity (test code = 9652151492) 73.0 cm/s Ao peak jovany (test code = 1338282085) 124.6 cm/s Ao VTI (test code = 2195001035) 18.6 cm AV area by cont VTI (test code = 7136852870) 2.8 cm2 AV area peak jovany (test code = 0603150244) 2.7 cm2 Ao max PG (test code = 6654186115) 6.20 mm[Hg] AV peak gradient (test code = 9517014167) mmHg AV valve area (test code = 5456500526) 2.80 cm2 AV mean gradient (test code = 1342477731) mmHg Radiology Study observation (narrative) (test code = 27207-0) JUAN ALBERTO (test code = JUAN ALBERTO) [...] mL of Lumason ultrasound enhancing agent used. [facility])2021-12-29 12:50:31* Test Item Value Reference Range Interpretation Comme [facility] POCT GLU (test code = 0234735882) 141 mg/dL 70-110 H Lab Interpretation (test cod e = 25403-4) Abnormal [facility] AreaTroponin H2102-04-13 10:38:31* Test Item Value Reference Range Interpretation Comments TROPONIN I (test code = 3339306342) 0.003 ng/mL See_Comment [Automated message] The system [...] of biotin. Lab Interpretation (test code = 34430-5) Normal [facility] AreaLIPID PANEL (91290)(TOTAL CHOLESTEROL, TRIGLYCERIDES, HDL)2021-12-29 05:56:47* Test Item Value Reference Range Interpretation Comme nts CHOL (test code = 5384564073) 168 mg/dL 120-200 HDL (test code = 2798714669) 102 mg/dL See_Comment [Automated [employer]] The system which generated this result transmitted reference range: >=40. The reference range was not used to interpret this result as normal/abnormal. HDLC RATIO (test code = 9316015010) See_Comment [Automated [employer]] The system which generated this result transmitted reference range: <=5.0. The reference range was not used to interpret this result as normal/abnormal. TRIG (test code = 2944783052) 55 mg/dL 30-170 LDL CHOL (test code = 44945-7) 55 mg/dL See_Comment [Automated [employer]] The system which generated this result transmitted reference range: <=160. The reference range was not used to interpret this result as normal/abnormal. VLDL (test code = 1839825277) 11 mg/dL 5-60 Lab Interpretation (test code = 45206-5) [facility] AreaThyroid Stimulating Hormone (TSH)2021-12-29 05:40:29* Test Item Value Reference Range Interpretation Comme nts TSH (test code = 8589169044) See_Comment Biotin has been reported to cause a negative bias, interpret results relative to patient's use of biotin. [Automated message] The system which generated this result transmitted reference range: 0.45 - 4.70 mIU/L. The reference range was not used to interpret this result as normal/abnormal. Lab Interpretation (test code = 78074-5) [facility] AreaTroponin U3562-35-42 05:34:29* Test Item Value Reference Range Interpretation Comments TROPONIN I (test code = 5160530030) 0.006 ng/mL See_Comment [Automated message] The system [...] of biotin. Lab Interpretation (test code = 03993-0) Normal [facility] AreaETHANOL2022-07-10 04:43:01 ALCOHOL<10mg/dL12/28/2021 11:43 PM [facility]ATORYToxic Greater than or equal to 80 mg/dL. NOTE: Whole blood values are approximately 10% to 15% lower than serum and plasma.[facility] Glycosylated Hemoglobin (A1C)2021-12-29 01:51:44* Test Item Value Reference Range Interpretation Comme nts HGB A1C (test code = 4548-4) 6.5 % 4-5.7 H JUAN ALBERTO (test code = JUAN ALBERTO) Reference RangesNormal: <5.7%Prediabetes: 5.7 - 6.4%Diabetes: > 6.5% Lab Interpretation (test code = 19493-9) Abnormal [facility] AreaTROPONIN P4811-19-31 21:26:50* Test Item Value Reference Range Interpretation Comments TROPONIN I (test code = 3247711025) 0.002 ng/mL See_Comment [Automated message] The system [...] of biotin. Lab Interpretation (test code = 80744-3) Normal [facility] AreaN-TERMINAL NBI-NKS4872-72-09 21:23:29* Test Item Value Reference Range Interpretation Comme nts NT-proBNP (test code = 0598727059) 41 pg/mL See_Comment [Automated message] The system which generated this result transmitted reference range: <=125. The reference range was not used to interpret this result as normal/abnormal. JUAN ALBERTO (test code = JUAN ALBERTO) Biotin has been reported to cause a negative bias, interpret results relative to patient's use of biotin. Lab Interpretation (test code = 34890-3) Normal [facility] AreaAMMONIA, KDHLVH9613-62-40 21:20:38* Test Item Value Reference Range Interpretation Comme nts AMMONIA (test code = 2966105519) 9-33 L Slight hemolysis Lab Interpretation (test code = 72406-1) Abnormal [facility]. METABOLIC PANEL (16362)2021-12-28 21:08:48* Test Item Value Reference Range Interpretation Comme nts NA (test code = 6297151818) 137 mmol/L 135-145 K (test code = 9612386442) 4.5 mmol/L 3.5-5 CL (test code = 6981759836) 97 mmol/L 98-108 L CO2 TOTAL (test code = 9427219911) 29 mmol/L 23-31 AGAP (test code = 4970711393) 2-16 BUN (test code = 7629823512) 10 mg/dL 7-23 GLUCOSE (test code = 0134166443) 188 mg/dL 70-110 H CREATININE (test code = 5359364817) 0.58 mg/dL 0.6-1.25 L TOTAL BILI (test code = 1073842314) 0.8 mg/dL 0.1-1.1 CALCIUM (test code = 9567219898) 10.5 mg/dL 8.6-10.6 T PROTEIN (test code = 8307076787) 7.6 g/dL 6.3-8.2 ALBUMIN (test code = 4000745079) 4.5 g/dL 3.5-5 ALK PHOS (test code = 9791059266) 107 U/L 34-122 ALTv (test code = 1742-6) 66 U/L 5-50 H AST(SGOT) (test code = 8712144498) 96 U/L 13-40 H eGFR (test code = 8103727162) mL/min/1.73m2 JUAN ALBERTO (test code = JUAN [...] imaging tests). Lab Interpretation (test code = 19416-8) Abnormal [facility] AreaPROTHROMBIN TIME / [id number] 21:01:25* Test Item Value Reference Range Interpretation Comme nts KHADIJAH PATIENT (test code = 5964-2) See_Comment [Automated [employer]] The system which generated this result transmitted reference range: 12.0 - 14.7 Seconds. The reference range was not used to interpret this result as normal/abnormal. INR (test code = 6301-6) Normal INR <1.1; Warfarin Therapeutic range 2.0 to 3.0 or 2.5 to 3.5, depending upon the indications. Lab Interpretation (test code = 61829-7) Normal [facility] AreaCBC WITH [id number] 20:54:03* Test Item Value Reference Range Interpretation [...] 34.2 g/dL 31.2-35 RDW-SD (test code = 15052-5) 47.8 fL 38.5-51.6 RDW-CV (test code = 788-0) 13.3 % 12.1-15.4 PLT (test code = 777-3) See_Comment [Automated messa ge] The system which generated this result transmitted reference range: 150 - 328 10*3/?L. The reference range was not used to interpret this result as normal/abnormal. MPV (test code = 55623-8) 8.6 fL 9.8-13 L NRBC/100 WBC (test code = 9505691329) See_Comment [Automated [employer] ssage] The system which generated this result transmitted reference range: 0.0 - 10.0 /100 WBCs. The reference range was not used to interpret this result as normal/abnormal. NRBC x10^3 (test code = 5150697050) See_Comment [Automated messa ge] The system which generated this result transmitted reference range: 10*3/?L. The reference range was not used to interpret this result as normal/abnormal. GRAN MAT (NEUT) % (test code = 770-8) 64.1 % IMM GRAN % (test code = 6912399533) 0.40 % LYMPH % (test code = 736-9) 16.6 % MONO % (test code = 5905-5) 17.2 % EOS % (test code = 713-8) 0.2 % BASO % (test code = 706-2) 1.5 % GRAN MAT x10^3(ANC) (test code = 0475438094) 3.47 10*3/uL 1.99-6.95 IMM GRAN x10^3 (test code = 4935909253) 0-0.06 LYMPH x10^3 (test code = 731-0) 0.90 10*3/uL 1.09-3.23 L MONO x10^3 (test code = 742-7) 0.93 10*3/uL 0.36-1.02 EOS x10^3 (test code = 711-2) 0.06-0.53 L BASO x10^3 (test code = 704-7) 0.08 10*3/uL 0.01-0.09 Lab Interpretation (test code = 65019-1) [facility]normal [facility] AreaEthanol Iubjl5825-41-99 21:08:00* Test Item Value Reference Range Interpretation Comme nts Ethanol (test code = ETOH) < 3 mg/dL The pharmacologi yudy response to blood alcohol levels mayvary from individual to individual. The fatal concentrationhas been reported to be >400mg/dL. Complete Blood Count Auto Gbyc1479-59-18 17:33:00* Test Item Value Reference Range Interpretation [...] = NRBCP) 0 % UA, Urinalysis Rflx Cult/Oalrm4785-07-52 17:33:00* Test Item Value Reference Range Interpretation Comme nts Color,Urine (test code = UCOL) Dark Yellow Yellow A Clarity,Urine (test code = UCLAR) Clear Clear Ph, Urine (test code = UPH) 6.5 5.0-9.0 N Specific [place],Urine (test code = USG) 1.015 1.005-1.030 N [...] = ULEU) Trace mg/dL Negative A Urine Ffnxnmqbtna1627-22-27 17:33:00* Test Item Value Reference Range Interpretation Comme nts RBC,Urine (test code = URBCUF) None Seen /HPF 0-2 WBC,Urine (test code = UWBCUF) 0-5 /HPF 0-5 Epithelial Cell,Urine (test code = UECUF) 0-5 /HPF 0-5 Casts,Urine (test code = UCASTUF) None Seen /LPF None Seen Bacteria,Urine (test code = UBACTUF) None Seen /hpf None Seen Drug Screen,Lpvrw7135-53-48 17:33:00* Test Item Value Reference Range Interpretation [...] code = UPROP) Negative Negative Comprehensive Metabolic Icwxe3808-23-82 17:33:00* Test Item Value Reference Range Interpretation [...] 101 U/L 46-116 N Sars-CoV-2/FLU A/B RSV [id number] 17:31:00* Test Item Value Reference Range Interpretation [...] SARS-CoV-2 PCR Result:) Negative by RT-PCR Drug Screen,Qstxz6928-00-68 17:20:00* Test Item Value Reference Range Interpretation [...] UPROP) Negative Negative Complete Blood Count Auto Prrm9952-46-31 17:14:00* Test Item Value Reference Range Interpretation [...] code = NRBCP) 0 % Comprehensive Metabolic Reoeg4149-14-55 17:14:00* Test Item Value Reference Range Interpretation [...] = ALP) 207 U/L 46-116 H Ethanol Nqpcm9247-37-47 17:14:00* Test Item Value Reference Range Interpretation Comme nts Ethanol (test code = ETOH) 192 mg/dL Complete Blood Count Auto Kdel7301-51-99 20:20:00* Test Item Value Reference Range Interpretation [...] code = NRBCP) 0 % Comprehensive Metabolic Ssasd7910-01-80 20:20:00* Test Item Value Reference Range Interpretation [...] = ALP) 189 U/L 46-116 H Ethanol [id number] 20:20:00* Test Item Value Reference Range Interpretation Comme nts Ethanol (test code = ETOH) 10 mg/dL Sars-CoV-2/FLU A/B RSV [id number] 20:20:00* Test Item Value Reference Range Interpretation [...] Negative by Nucleic Acid Amplification UA, Urinalysis [id number] 20:20:00* Test Item Value Reference Range Interpretation Comme nts Color,Urine (test code = UCOL) Yellow Y Clarity,Urine (test code = UCLAR) Clear Clear PH,Urine (test code = UPH.XX) 7.0 5.5-8.5 Specific [place],Urine (test code = USG) 1.020 1.005-1.030 N [...] code = ULEU) Negative cells/uL Negative Drug Screen,[id number] 20:20:00* Test Item Value Reference Range Interpretation [...] LLOW CT head/brain wo [facility] [address] [place] [address] Patient Name: Walt Velazquez Medical Record#: [id number] Address: Homeless City/State/Zip: [place] [address]: Vinnie Navarro MD Insurance:Self Pay /Age/Sex: 1970/50/M Admit/Reg Date: 09/17/[address]: Vinnie Navarro MD Location: [facility]/ PCP: Pcp-Md KERWIN Stiles Date of Service: 09/17/21 Order (s): CT head/brain wo con CPT Code: 32673 Report Number: [id number] Reason for Exam: Altered mental status Location [...]
--- NOTE | 2024-06-01 02:54 | EDPHYS ---
Physician Documentation [facility] Name: Walt Velazquez Age: 53 yrs Sex: Male : 1970 Arrival Date: 06/01/2024 Time: 02:31 Bed IW1 Private MD: ED Physician Jules Lucero HPI: 06/01 02:48 This 53 yrs old Male presents to ER via Ambulatory with complaints of Leg Pain.sp4 02:48 Very pleasant 53-year-old gentleman presents with acute right knee pain. Patient sp4 presents with EMS.. Historical: - Allergies: 02:46 Trazodone; jb4 - PMHx: 02:46 etoh abuse (Seizure); Hypertensive disorder; Seizure; jb4 - Immunization history:: Adult Immunizations unknown. - Infectious Disease History:: Denies. - Social history:: Smoking status: Patient reports the use of cigarette tobacco products, smokes .25 packs per day. - Family history:: not pertinent. ROS: 02:48 Constitutional: Negative for fever, chills, and weight loss, positive for right knee sp4 pain which is acute 02:48 All other systems are negative, Exam: 02:50 Constitutional: This is a well developed, well nourished patient who is awake, alert, sp4 and in no acute distress. Disheveled in appearance Head/Face: Normocephalic, atraumatic. Eyes: Pupils equal round and reactive to light, extra-ocular motions intact. Lids and lashes normal. Conjunctiva and sclera are not injected. Cornea within normal limits. Periorbital areas with no swelling, redness, or edema. ENT: Nares patent. No nasal discharge, no septal abnormalities noted. Tympanic membranes are normal and external auditory canals are clear. Oropharynx with no redness, swelling, or masses, exudates, or evidence of obstruction, uvula midline. Mucous membranes moist. Neck: Trachea midline, no thyromegaly or masses palpated, and no cervical lymphadenopathy. Supple, full range of motion without nuchal rigidity, or vertebral point tenderness. Chest/axilla: Normal chest wall appearance and motion. Nontender with no deformity. No lesions are appreciated. Cardiovascular: Regular rate and rhythm with a normal S1 and S2. No gallops, murmurs, or rubs. Normal PMI, no JVD. No pulse deficits. Respiratory: Lungs have equal breath sounds bilaterally, clear to auscultation and percussion. No rales, rhonchi or wheezes noted. No increased work of breathing, no retractions or nasal flaring. Abdomen/GI: Soft, with normal bowel sounds. No distension or tympany. No guarding or rebound. No evidence of tenderness throughout. Back: No spinal tenderness. No costovertebral tenderness. Skin: Warm, dry with normal turgor. Normal color with no rashes, no lesions, and no evidence of cellulitis. MS/ Extremity: Pulses equal, no cyanosis. Neurovascular intact. Full, normal range of motion. Bilateral knee appears normal. No effusion no redness no tenderness, normal ambulatory status Neuro: Awake and alert, GCS 15, oriented to person, place, time, and situation. Cranial nerves II-XII grossly intact. Motor strength 5/5 in all extremities. Sensory grossly intact. Psych: Awake, alert, with orientation to person, place and time. Behavior, mood, and affect are within normal limits no signs of intoxication Vital Signs: 02:45 BP 116 / 92; Pulse 91; Resp 16; Temp 98.7(TE); Pulse Ox 100% on R/A; Weight 63.5 kg; jb4 Height 5 ft. 3 in. (R); Pain 6/10; 02:45 Body Mass Index 24.80 (63.50 kg, 160.02 cm) jb4 02:45 Pain Scale: Adult jb4 [place] Coma Score: 02:50 Eye Response: spontaneous(4). Motor Response: obeys commands(6). Verbal Response: sp4 oriented(5). Total: 15. MDM: 02:50 Differential diagnosis: dislocation, closed fracture, contusion, abrasion, tendonitis. sp4 Data reviewed: vital signs, nurses notes, EMS record, old medical records. ED course: Patient does not have any sign of acute medical emergent problem. The right exam of the knee is normal. Patient is ambulatory. Stable for discharge from the emergency department. . 02:53 Medical Screening Exam initiated sp4 Administered Medications: No medications were administered Disposition Summary: 06/01/24 02:53 Discharge Ordered Notes: Location: Home sp4 Problem: new sp4 Symptoms: have improved sp4 Condition: Stable sp4 Diagnosis - Pain in right knee sp4 Followup: sp4 - With: Private Physician - When: As needed - Reason: Discharge Instructions: - Discharge Summary Sheet sp4 - Joint Pain sp4 Forms: - Patient Portal Instructions sp4 Signatures: Bj Sweeney RN RN jb4 Jules Lucero MD MD sp4
--- NOTE | 2024-06-01 02:54 | ER ---
Nurse's Notes [facility] Name: Walt Velazquez Age: 53 yrs Sex: Male : 1970 Arrival Date: 06/01/2024 Time: 02:31 Bed IW1 Private MD: Diagnosis: Pain in right knee Presentation: 06/01 02:45 Chief complaint: Patient states: I fell yesterday afternoon and hurt my right knee. jb4 Coronavirus screen: At this time, the client does not indicate any symptoms associated with coronavirus-19. Ebola Screen: No symptoms or risks identified at this time. Initial Sepsis Screen: Does the patient meet any 2 criteria? HR > 90 bpm. Yes Does the patient have a suspected source of infection? No. Patient's initial sepsis screen is negative. Risk Assessment: Do you want to hurt yourself or someone else? Patient reports no desire to harm self or others. Onset of symptoms was June 01, 2024. Transition of care: patient was not received from another setting of care. 02:45 Method Of Arrival: Ambulatory jb4 02:45 Acuity: LATASHA 4 jb4 Triage Assessment: 02:46 General: Appears in no apparent distress. comfortable, Behavior is calm, cooperative, jb4 appropriate for age. Pain: Complains of pain in right knee Pain does not radiate. Pain currently is 6 out of 10 on a pain scale. Neuro: Level of Consciousness is awake, alert, obeys commands, Oriented to person, place, time, situation. Cardiovascular: Patient's skin is warm and dry. Respiratory: Airway is patent Respiratory effort is even, unlabored, Respiratory pattern is regular, symmetrical. Derm: Skin is intact, Skin is pink, warm \T\ dry. Musculoskeletal: Circulation, motion, and sensation intact. Range of motion: intact in all extremities. Historical: - Allergies: 02:46 Trazodone; jb4 - PMHx: 02:46 etoh abuse (Seizure); Hypertensive disorder; Seizure; jb4 - Immunization history:: Adult Immunizations unknown. - Infectious Disease History:: Denies. - Social history:: Smoking status: Patient reports the use of cigarette tobacco products, smokes .25 packs per day. - Family history:: not pertinent. Screenin:47 [facility] ED Fall Risk Assessment (Adult) History of falling in the last 3 months, jb4 including since admission Yes- single mechanical fall (1 pt) Confusion or Disorientation No (0 pts) Intoxicated or Sedated No (0 pts) Impaired Gait No (0 pts) Mobility Assist Device Used No (0 pt) Altered Elimination No (0 pt) Score/Fall Risk Level 0 - 2 = Low Risk Oriented to surroundings, Maintained a safe environment. Abuse screen: Denies threats or abuse. Nutritional screening: No deficits noted. Tuberculosis screening: No symptoms or risk factors identified. Assessment: 02:47 Reassessment: see triage note. jb4 Vital Signs: 02:45 BP 116 / 92; Pulse 91; Resp 16; Temp 98.7(TE); Pulse Ox 100% on R/A; Weight 63.5 kg; jb4 Height 5 ft. 3 in. (R); Pain 6/10; 02:45 Body Mass Index 24.80 (63.50 kg, 160.02 cm) jb4 02:45 Pain Scale: Adult jb4 Mariia Coma Score: 02:50 Eye Response: spontaneous(4). Motor Response: obeys commands(6). Verbal Response: sp4 oriented(5). Total: 15. ED Course: 02:39 Patient arrived in ED. gm2 02:46 Triage completed. jb4 02:46 Arm band placed on right wrist. jb4 02:47 Patient has correct armband on for positive identification. Call light in reach. Side jb4 rails up X 1. Provided Education on: plan of care. 02:48 Jules Lucero MD is Attending Physician. sp4 02:54 No provider procedures requiring assistance completed. Patient did not have IV access lg3 during this emergency room visit. Administered Medications: No medications were administered Medication: 02:47 VIS not applicable for this client. jb4 Outcome: 02:53 Discharge ordered by . sp4 02:54 Discharged to Unknown lg3 02:54 Condition: stable 02:54 Discharge instructions given to patient, Instructed on discharge instructions, follow up and referral plans. Demonstrated understanding of instructions, follow-up care, 02:54 Patient left the ED. lg3 Signatures: Bj Sweeney RN ROBERTO jb4 Sara Wakefield RN RN lg3 Jules Lucero MD MD sp4 Selin Teague gm2
[2024-06-01 02:59] VITALS: BP 116/92; TEMP 98.7; O2SAT 100
== END 2024-06-01 02:54 | disposition home or self-care (01) ==
LOC: ER 02:31
DX: M25.561 Pain in right knee (principal)
CPT/HCPCS: 99282